=== PATIENT | female | born 1940 | race Caucasian/White ===

== ENCOUNTER → 2017-05-21 14:42 | Outpatient (CLI) | payer MEDICARE, OTHER, SELFPAY ==
[2017-05-21 16:07] LABS: Albumin, Serum 3.2 g/dL (3.2-5.0); BUN 30 mg/dL (7-18); BUN/Creat Ratio 20.7 RATIO (10-20); Calcium,Total 8.3 mg/dL (8.5-10.1); Chloride 103 mmol/L (98-107); Creatinine, Serum 1.45 mg/dL (0.55-1.02); EST Glomerular Filtration Rate 37 mL/min (>60); Est Glom Filt Rate - Afr Amer 45 mL/min (>60); Glucose 82 mg/dL (74-106); Phosphorus 3.2 mg/dL (2.5-4.9); Potassium 3.6 mmol/L (3.5-5.1); Sodium Level 143 mmol/L (136-145)
== END ==
PROVIDERS: Family Provider Family Medicine Geriatric Medicine; PCP Family Medicine Geriatric Medicine; Visit Provider Internal Medicine Nephrology
DX: N18.3 Chronic kidney disease, stage 3 (moderate) (principal)
CPT/HCPCS: 36415; 80069

== ENCOUNTER → 2017-06-05 15:08 | Outpatient (CLI) | payer MEDICARE, OTHER, SELFPAY ==
[2017-06-05 15:57] LABS: Absolute Lymphocyte Count 1.98 X10^3/ul (0.83-4.51); Absolute Neutrophil Count 6.7 X10^3/uL (2.0-7.7); Basophil# 0.04 X10^3/uL; Basophil% 0.4 % (0-1); Eosinophil# 0.22 X10^3/uL; Eosinophils% 2.2 % (0-5); Hematocrit 40.1 % (37-47); Hemoglobin 12.6 g/dl (12.0-15.0); Lymphocyte # 1.98 X10^3/ul (4.0); Lymphocyte % 19.9 % (19-41); Mean Corp Hgb Conc 31.4 g/gl (32-36); Mean Corpuscular Hgb 28.6 pg (27.0-32.0); Mean Corpuscular Volume 91.1 fL (81-99); Mean Platelet Vol. 11.5 fl (6.2-12.0); Monocyte# 0.96 X10^3/uL; Monocyte% 9.6 % (0-10); Neutrophil # 6.73 X10^3/uL (2.7-7.7); Neutrophil % 67.7 % (47-70); Platelet Count 243 K/mm3 (150-450); RBC Distribution Width CV 14.3 % (11.6-14.6); RBC Distribution Width SD 46.9 fl (35.1-43.9)
[2017-06-05 15:59] LABS: POSITIVE COUNT NO; POSITIVE DIFFERENTIAL NO; POSITIVE MORPHOLOGY NO
[2017-06-05 16:19] LABS: Vitamin D,25 Hydroxy 17.2 ng/mL (29.95-100.01)
[2017-06-05 16:24] LABS: ALB/GLOB Ratio 0.9 RATIO (0.9-2.4); AST(SGOT) 35 U/L (15-37); Alanine Aminotransfer ALT/SGPT 57 U/L (13-56); Albumin, Serum 3.2 g/dL (3.2-5.0); Alkaline Phosphatase 90 U/L (45-117); Anion Gap 8 (5-15); BUN 43 mg/dL (7-18); BUN/Creat Ratio 17.8 RATIO (10-20); Calcium,Total 8.6 mg/dL (8.5-10.1); Chloride 102 mmol/L (98-107); Creatinine, Serum 2.41 mg/dL (0.55-1.02); EST Glomerular Filtration Rate 21 mL/min (>60); Est Glom Filt Rate - Afr Amer 25 mL/min (>60); Globulin 3.6 g/dL (2.2-4.2); Glucose 125 mg/dL (74-106); Potassium 3.4 mmol/L (3.5-5.1); Protein, Total 6.8 g/dL (6.4-8.2); Sodium Level 141 mmol/L (136-145); Thyroid Stim Hormone (TSH) 1.74 uIU/mL (0.358-3.74)
== END ==
PROVIDERS: Family Provider Family Medicine Geriatric Medicine; PCP Family Medicine Geriatric Medicine; Visit Provider Family Medicine Geriatric Medicine
DX: I10 Essential (primary) hypertension (principal); E11.9 Type 2 diabetes mellitus without complications; E55.9 Vitamin D deficiency, unspecified
CPT/HCPCS: 36415; 80053; 82306; 84443; 85025

== ENCOUNTER → 2017-06-11 14:45 | Outpatient (CLI) | payer MEDICARE, OTHER, SELFPAY ==
--- NOTE | 2017-06-11 13:08 | TISS_PTH ---
PATIENT: TONJA SÁNCHEZ LOC: [facility] U#:[id number] AGE/SX: 85/F ROOM: RE06/11/[address]: Dr. Alexy Douglas MD : 1940 BED: DIS: SPEC #: [id number] RECD: 06/11/17 15:40 STATUS: RICHARD KAMRON #: [id number] HAMLET: 06/11/17 13:[address]: Alexy Douglas Chi DEPT: SURGICAL PATHOLOGY RECD BY: Lorna Young Tissues: A - Skin of neck, NOS B - Skin of neck, NOS Procedures: Surgery Specimen Level IV HEADER OPERATION: Not noted PRE-OP DIAGNOSIS: L98.9, 709.9 TISSUE SUBMITTED: A. Neck, left upper, B. Neck, left lower MICROSCOPIC DIAGNOSIS A. Skin lesion, left upper neck, shave biopsy: Seborrheic keratosis. Solar elastosis. B. Skin lesion, left lower neck, shave biopsy: Basal cell carcinoma, incompletely excised. AM:lonnie 06/13/17 MICROSCOPIC DESCRIPTION Slides are reviewed. GROSS DESCRIPTION A - Received is one container labeled with the patient's name and not further designated. The specimen consists of a light gleason fragment of shaved skin measuring 0.8 x 0.7 x 0.1 cm. The specimen is inked, bisected and totally submitted in one cassette. B - Received is one container labeled with the patient's name and not further designated. The specimen consists of a light gleason fragment of shaved skin measuring 1 x 0.6 x <0.1 cm. The specimen is inked, bisected and totally submitted in one cassette. / AM:lonnie 06/12/17 TC:0 CPT: 66458 x2
== END ==
PROVIDERS: Family Provider Family Medicine Geriatric Medicine; PCP Family Medicine Geriatric Medicine; Visit Provider Family Medicine Geriatric Medicine
DX: L98.9 Disorder of the skin and subcutaneous tissue, unspecified (principal)
CPT/HCPCS: 88305

== ENCOUNTER → 2017-06-25 12:09 | Outpatient (CLI) | payer MEDICARE, OTHER, SELFPAY ==
[2017-06-25 13:12] LABS: Albumin, Serum 3.2 g/dL (3.2-5.0); BUN 29 mg/dL (7-18); BUN/Creat Ratio 14.4 RATIO (10-20); Calcium,Total 8.6 mg/dL (8.5-10.1); Chloride 103 mmol/L (98-107); Creatinine, Serum 2.02 mg/dL (0.55-1.02); EST Glomerular Filtration Rate 25 mL/min (>60); Est Glom Filt Rate - Afr Amer 31 mL/min (>60); Glucose 175 mg/dL (74-106); Phosphorus 2.9 mg/dL (2.5-4.9); Potassium 3.7 mmol/L (3.5-5.1); Sodium Level 143 mmol/L (136-145)
== END ==
PROVIDERS: Family Provider Family Medicine Geriatric Medicine; PCP Family Medicine Geriatric Medicine; Visit Provider Family Medicine Geriatric Medicine
DX: N17.8 Other acute kidney failure (principal)
CPT/HCPCS: 36415; 80069

== ENCOUNTER → 2017-08-13 16:14 | Outpatient (CLI) | payer MEDICARE, OTHER, SELFPAY ==
[2017-08-13 17:49] LABS: Albumin, Serum 3.1 g/dL (3.2-5.0); BUN 24 mg/dL (7-18); Calcium,Total 8.2 mg/dL (8.5-10.1); Chloride 105 mmol/L (98-107); Creatinine, Serum 1.72 mg/dL (0.55-1.02); EST Glomerular Filtration Rate 30 mL/min (>60); Est Glom Filt Rate - Afr Amer 37 mL/min (>60); Glucose 133 mg/dL (74-106); Phosphorus 2.8 mg/dL (2.5-4.9); Potassium 3.4 mmol/L (3.5-5.1); Sodium Level 142 mmol/L (136-145)
== END ==
PROVIDERS: Family Provider Family Medicine Geriatric Medicine; PCP Family Medicine Geriatric Medicine; Visit Provider Internal Medicine Nephrology
DX: E78.5 Hyperlipidemia, unspecified (principal); I10 Essential (primary) hypertension; I48.0 Paroxysmal atrial fibrillation; R06.02 Shortness of breath; R60.9 Edema, unspecified
CPT/HCPCS: 36415; 80069

== ENCOUNTER → 2017-09-12 09:03 | Outpatient (CLI) | payer MEDICARE, OTHER, SELFPAY ==
[2017-09-12 18:04] LABS: ALB/GLOB Ratio 0.9 RATIO (0.9-2.4); AST(SGOT) 43 U/L (15-37); Absolute Neutrophil Count 5.4 X10^3/uL (2.0-7.7); Alanine Aminotransfer ALT/SGPT 65 U/L (13-56); Albumin, Serum 3.2 g/dL (3.2-5.0); Alkaline Phosphatase 75 U/L (45-117); Anion Gap 10 (5-15); BUN 30 mg/dL (7-18); Basophil# 0.02 X10^3/uL; Basophil% 0.2 % (0-1); Calcium,Total 8.9 mg/dL (8.5-10.1); Chloride 103 mmol/L (98-107); Creatinine, Serum 1.87 mg/dL (0.55-1.02); EST Glomerular Filtration Rate 28 mL/min (>60); Eosinophil# 0.23 X10^3/uL; Eosinophils% 2.8 % (0-5); Est Glom Filt Rate - Afr Amer 33 mL/min (>60); Globulin 3.7 g/dL (2.2-4.2); Glucose 114 mg/dL (74-106); Hematocrit 37.2 % (37-47); Hemoglobin 11.7 g/dl (12.0-15.0); Lymphocyte % 24.2 % (19-41); Mean Corp Hgb Conc 31.5 g/gl (32-36); Mean Corpuscular Hgb 29.5 pg (27.0-32.0); Mean Corpuscular Volume 93.9 fL (81-99); Mean Platelet Vol. 11.6 fl (6.2-12.0); Monocyte# 0.59 X10^3/uL; Monocyte% 7.2 % (0-10); Neutrophil % 65.5 % (47-70); POSITIVE COUNT NO; POSITIVE DIFFERENTIAL NO; POSITIVE MORPHOLOGY NO; Platelet Count 256 K/mm3 (150-450); Potassium 3.4 mmol/L (3.5-5.1); Protein, Total 6.9 g/dL (6.4-8.2); RBC Distribution Width CV 13.6 % (11.6-14.6); RBC Distribution Width SD 46.3 fl (35.1-43.9); Red Blood Count 3.96 M/mm3 (4.2-5.4); Sodium Level 142 mmol/L (136-145); White Blood Count 8.3 K/mm3 (4.4-11.0)
[2017-09-13 08:43] LABS: Vitamin D,25 Hydroxy 46.2 ng/mL (29.95-100.01)
== END ==
PROVIDERS: Family Provider Family Medicine Geriatric Medicine; PCP Family Medicine Geriatric Medicine; Visit Provider Family Medicine Geriatric Medicine
DX: E11.9 Type 2 diabetes mellitus without complications (principal); E55.9 Vitamin D deficiency, unspecified; I10 Essential (primary) hypertension
CPT/HCPCS: 36415; 80053; 82306; 84443; 85025

== ENCOUNTER → 2017-12-10 15:35 | Outpatient (CLI) | payer MEDICARE, OTHER, SELFPAY ==
--- NOTE | 2017-12-10 15:44 | RAD_ITS ---
STUDY: X-RAY CHEST REASON FOR EXAM: Female, 77 years old. One week history of shortness of breath. TECHNIQUE: PA and lateral views of the chest. COMPARISON: Comparison is made with prior study dated November 15, 2016. FINDINGS: Mild increased linear markings at the lung bases slightly more prominent on the left side suggestive of a bibasilar scarring. Hyperinflation. There is no demonstrated pleural abnormality. Normal size heart. Normal mediastinum and binh. Normal visualized pulmonary arteries. There is atherosclerotic tortuosity of the aortic arch and descending thoracic aorta. There are diffuse degenerative changes of the visualized thoracic spine. Normal visualized ribs, clavicles, and shoulders. There is no demonstrated abnormality of the visualized soft tissue structures of the upper abdomen. RAD/Chest PA and Lateral IMPRESSION: Hyperinflation. Mild degree of increased markings at the lung bases slightly worse on the left side suggestive of scarring. Electronically Signed: Huey Gomez MD at 16:01 EDT Tel [phone], Service support ,
[2017-12-10 16:45] LABS: BNP,B-Type NATRIURETIC PEPTIDE 208.6 pg/mL (0-100)
[2017-12-10 16:54] LABS: ALB/GLOB Ratio 0.8 RATIO (0.9-2.4); AST(SGOT) 31 U/L (15-37); Alanine Aminotransfer ALT/SGPT 53 U/L (13-56); Albumin, Serum 3.2 g/dL (3.2-5.0); Alkaline Phosphatase 91 U/L (45-117); Anion Gap 8 (5-15); BUN 22 mg/dL (7-18); BUN/Creat Ratio 14.4 RATIO (10-20); CPK Total, Creatine Kinase 59 U/L (26-192); Calcium,Total 8.9 mg/dL (8.5-10.1); Chloride 103 mmol/L (98-107); Creatinine, Serum 1.53 mg/dL (0.55-1.02); EST Glomerular Filtration Rate 35 mL/min (>60); Est Glom Filt Rate - Afr Amer 42 mL/min (>60); Globulin 3.8 g/dL (2.2-4.2); Glucose 101 mg/dL (74-106); Potassium 4.5 mmol/L (3.5-5.1); Sodium Level 142 mmol/L (136-145); Thyroid Stim Hormone (TSH) 3.42 uIU/mL (0.358-3.74)
[2017-12-10 17:05] LABS: Absolute Lymphocyte Count 1.57 X10^3/ul (0.83-4.51); Absolute Neutrophil Count 6.7 X10^3/uL (2.0-7.7); Basophil# 0.04 X10^3/uL; Basophil% 0.4 % (0-1); Eosinophil# 0.25 X10^3/uL; Eosinophils% 2.7 % (0-5); Hematocrit 41.6 % (37-47); Hemoglobin 12.9 g/dl (12.0-15.0); Lymphocyte # 1.57 X10^3/ul (4.0); Lymphocyte % 16.8 % (19-41); Mean Corpuscular Hgb 28.4 pg (27.0-32.0); Mean Corpuscular Volume 91.6 fL (81-99); Mean Platelet Vol. 11.1 fl (6.2-12.0); Monocyte# 0.76 X10^3/uL; Monocyte% 8.1 % (0-10); Neutrophil # 6.71 X10^3/uL (2.7-7.7); Neutrophil % 71.6 % (47-70); POSITIVE COUNT NO; POSITIVE DIFFERENTIAL NO; POSITIVE MORPHOLOGY NO; Platelet Count 281 K/mm3 (150-450); RBC Distribution Width CV 14.3 % (11.6-14.6); RBC Distribution Width SD 47.7 fl (35.1-43.9); Red Blood Count 4.54 M/mm3 (4.2-5.4); White Blood Count 9.4 K/mm3 (4.4-11.0)
[2017-12-10 17:58] LABS: D-Dimer Quantitative (DVT/PE) 0.56 FEU/ug/m (0.27-0.49)
[2017-12-13 08:13] LABS: Myoglobin, Serum 36 ng/mL (25-58)
== END ==
PROVIDERS: Family Provider Family Medicine Geriatric Medicine; PCP Family Medicine Geriatric Medicine; Referring Provider Family Medicine Geriatric Medicine; Visit Provider Family Medicine Geriatric Medicine
DX: R06.02 Shortness of breath (principal); I10 Essential (primary) hypertension
CPT/HCPCS: 36415; 71046; 80053; 82550; 83874; 83880; 84443; 84484; 85025; 85379

== ENCOUNTER → 2017-12-17 13:03 | Outpatient (CLI) | payer MEDICARE, OTHER, SELFPAY ==
--- NOTE | 2017-12-17 15:14 | PFTCOMP ---
COMPLETE PULMONARY FUNCTION TEST INTERPRETATION Brief HPI: Patient is a 77 year old female, currently under the care of Dr. Greenwood, who presents to [facility] for complete pulmonary function tests secondary to diagnosis of COPD. Respiratory therapist reports good effort and reproducible results. Interpretation: Forced expiration spirometry shows a mild large airways obstructive ventilatory defect with an FEV1 of 73% predicted. There is no significant bronchodilator response by ATS criteria. Spirograms are of good quality and plateau slowly, indicating slowly emptying areas of the lungs. The respiratory flow volume loop shows decreased expiratory flow rates at all lung volumes consistent with airway obstruction. Lung volumes by body plethysmography show an elevated total lung capacity at 6.56 L, 114% predicted. FRC and RV are elevated out of proportion. Lung volume measurements are consistent with hyperinflation and air-trapping. Diffusion capacity by carbon monoxide is decreased at 48% predicted. The airway resistance is elevated. Compared to previous pulmonary function tests from 12/25/2016, there has been a significant improvement in DLCO, but worsening air trapping. Impression: Irreversible mild large airways obstructive ventilatory defect resulting in air trapping with hyperinflation and a reduction of DLCO out of proportion indicating a probable pulmonary vascular disorder. There has been changes compared to previous study.
== END ==
PROVIDERS: Family Provider Family Medicine Geriatric Medicine; PCP Family Medicine Geriatric Medicine; Referring Provider Nurse Practitioner Acute Care; Visit Provider Nurse Practitioner Acute Care
DX: J44.9 Chronic obstructive pulmonary disease, unspecified (principal)
CPT/HCPCS: 94060; 94726; 94729

== ENCOUNTER → 2017-12-17 13:49 | Outpatient (CLI) | payer MEDICARE, OTHER, SELFPAY ==
[2017-12-17 14:59] LABS: Albumin, Serum 3.2 g/dL (3.2-5.0); BUN 24 mg/dL (7-18); BUN/Creat Ratio 16.7 RATIO (10-20); Calcium,Total 8.6 mg/dL (8.5-10.1); Chloride 107 mmol/L (98-107); Creatinine, Serum 1.44 mg/dL (0.55-1.02); EST Glomerular Filtration Rate 37 mL/min (>60); Est Glom Filt Rate - Afr Amer 45 mL/min (>60); Glucose 159 mg/dL (74-106); Potassium 4.3 mmol/L (3.5-5.1); Sodium Level 144 mmol/L (136-145)
== END ==
PROVIDERS: Family Provider Family Medicine Geriatric Medicine; PCP Family Medicine Geriatric Medicine; Referring Provider Internal Medicine Nephrology; Visit Provider Internal Medicine Nephrology
DX: N17.8 Other acute kidney failure (principal)
CPT/HCPCS: 36415; 80069; 94060; 94726; 94729

== ENCOUNTER → 2017-12-18 11:51 | Outpatient (CLI) | payer MEDICARE, OTHER, SELFPAY ==
[2017-12-18 12:17] VITALS: PULSE 57; PULSE 63; PULSE 68; PULSE 69; PULSE 70; PULSE 76; O2SAT 90; O2SAT 92; O2SAT 93
--- NOTE | 2017-12-18 15:18 | PCM.PSN.6M ---
PSN 6 Minute Walk Test - 6 Minute Walk Test 6 Minute Walk Test: 6 Minute Walk Test PSN:6-Minute Walk Test Start: 12/18/17 12:17 Freq: Status: Active Protocol: RESP.6MINW Document 12/18/17 12:17 SMB (Rec: 12/18/17 12:21 SMB [id number]) 6 Minute Walk Test Date Performed 12/18/17 Time Performed 12:05 Height 5 ft 9 in Weight: 113.398 kg Weight in Pounds 250.[address]: Bessy Galan Assistive device used: None Pre-test Oxygen Delivery Method Room Air Pulse Ox (%) 93 Pulse Rate (60-100 beats/min) 57 L 1st minute Oxygen Delivery Method Room Air Pulse Ox (%) 92 Pulse Rate (60-100 beats/min) 70 2nd minute Oxygen Delivery Method Room Air Pulse Ox (%) 90 Pulse Rate (60-100 beats/min) 63 3rd minute Oxygen Delivery Method Room Air Pulse Ox (%) 92 Pulse Rate (60-100 beats/min) 70 4th minute Oxygen Delivery Method Room Air Pulse Ox (%) 92 Pulse Rate (60-100 beats/min) 69 5th minute Oxygen Delivery Method Room Air Pulse Ox (%) 90 Pulse Rate (60-100 beats/min) 68 6th minute Oxygen Delivery Method Room Air Pulse Ox (%) 92 Pulse Rate (60-100 beats/min) 76 Post-test Oxygen Delivery Method Room Air Pulse Ox (%) 93 Pulse Rate (60-100 beats/min) 63 Dyspnea Maci Scale (0-10) 2 Exertion Maci Scale (6-20) 13 Full Laps Walked 17 Partial Lap, Number of Tiles Walked 9 Total Distance Walked (ft) 1012 - Interpretation Interpretation: The patient was noted to have a decreased baseline saturation of 93% on room air. The patient then ambulated 1012 feet over the course of 6 minutes on room air with no assistive devices or breaks. The patient did desaturate as low as 90%, but no tachycardia was noted during testing. These findings are consistent with a respiratory limitation exercise tolerance. - Recommendations Recommendations: No supplemental oxygen is indicated at this time. However, patient will need to be followed closely given decreased saturation at baseline.
== END ==
PROVIDERS: Family Provider Family Medicine Geriatric Medicine; PCP Family Medicine Geriatric Medicine; Referring Provider Nurse Practitioner Acute Care; Visit Provider Nurse Practitioner Acute Care
DX: J44.9 Chronic obstructive pulmonary disease, unspecified (principal)
CPT/HCPCS: 36415; 80048; 94618

== ENCOUNTER → 2017-12-18 13:04 | Outpatient (CLI) | payer MEDICARE, OTHER, SELFPAY ==
[2017-12-18 17:18] LABS: Anion Gap 9 (5-15); BUN 22 mg/dL (7-18); BUN/Creat Ratio 14.8 RATIO (10-20); Calcium,Total 9.1 mg/dL (8.5-10.1); Chloride 102 mmol/L (98-107); Creatinine, Serum 1.49 mg/dL (0.55-1.02); EST Glomerular Filtration Rate 36 mL/min (>60); Est Glom Filt Rate - Afr Amer 43 mL/min (>60); Glucose 88 mg/dL (74-106); Potassium 4.2 mmol/L (3.5-5.1); Sodium Level 141 mmol/L (136-145)
== END ==
PROVIDERS: Family Provider Family Medicine Geriatric Medicine; PCP Family Medicine Geriatric Medicine; Visit Provider Family Medicine Geriatric Medicine
DX: N18.3 Chronic kidney disease, stage 3 (moderate) (principal)
CPT/HCPCS: 36415; 80048

== ENCOUNTER → 2018-02-18 11:24 | Outpatient (CLI) | payer MEDICARE, OTHER, SELFPAY ==
[2018-02-04 14:07] VITALS: BMI 38.9
[2018-02-18 12:35] LABS: Albumin, Serum 3.2 g/dL (3.2-5.0); BUN 23 mg/dL (7-18); BUN/Creat Ratio 15.8 RATIO (10-20); Calcium,Total 8.9 mg/dL (8.5-10.1); Chloride 108 mmol/L (98-107); Creatinine, Serum 1.46 mg/dL (0.55-1.02); EST Glomerular Filtration Rate 37 mL/min (>60); Est Glom Filt Rate - Afr Amer 44 mL/min (>60); Glucose 164 mg/dL (74-106); Phosphorus 2.9 mg/dL (2.5-4.9); Potassium 4.2 mmol/L (3.5-5.1); Sodium Level 144 mmol/L (136-145)
== END ==
PROVIDERS: Family Provider Family Medicine Geriatric Medicine; PCP Family Medicine Geriatric Medicine; Visit Provider Internal Medicine Nephrology
DX: N18.3 Chronic kidney disease, stage 3 (moderate) (principal)
CPT/HCPCS: 36415; 80069

== ENCOUNTER → 2018-02-20 13:35 | Outpatient (CLI) | payer MEDICARE, OTHER, SELFPAY ==
[2018-02-04 14:07] VITALS: BMI 38.9
--- NOTE | 2018-02-20 13:36 | ECHOCS_ITS ---
Reason For Study: SOB Procedure This was a 2D Doppler, Color Flow transthoracic echocardiogram. Contrast injection was performed. The study was technically difficult. Exam performed in department. Left Ventricle Normal LV size. Left ventricular systolic function is normal. The estimated ejection fraction is 60 %. Stage 3 diastolic dysfunction. No regional wall motion abnormalities noted. Right Ventricle Normal RV size. Normal systolic function. Atria The left atrium is moderately enlarged. The right atrium is mildly enlarged. Mitral Valve There is mild mitral annular calcification. Mild (1+) eccentric mitral valve insufficiency. Tricuspid Valve Normal tricuspid valve. Mild to moderate (1-2+) tricuspid valve insufficiency. Pulmonary artery systolic pressure is 47 mmHg. Aortic Valve Trisinus/trileaflet aortic valve. Pulmonic Valve The pulmonic valve is not well visualized. Great Vessels Normal aortic root. The pulmonary artery is normal size. Normal inferior vena cava. Pericardium/Pleural No pericardial effusion. Medication 22 gauge I.V. with prn adaptor inserted into right arm. Diluted definity 2ml given slow IV push to enhance endocardial definition. MMode/2D Measurements & Calculations LAV(MOD-bp): 108.4 ml LA A4 area: 29.3 cm2 RA A4 area: 24.1 cm2 LAV(MOD-bp) Indexed: 47.7 ml/m2 LAV(MOD-sp2): 103.7 ml LAV(MOD-sp4): 113.9 ml Time Measurements MV dec time: 0.22 sec Doppler Measurements & Calculations MV E max graeme: 89.3 cm/sec Lat Peak E' Graeme: 2.9 cm/sec Med Peak E' Graeme: 2.1 cm/sec MV A max graeme: 63.4 cm/sec E/E' lat: 30.8 E/E' med: 43.3 MV E/A: 1.4 MV V2 max: 126.2 cm/sec MV P1/2t max graeme: 126.2 cm/sec Ao V2 max: 145.6 cm/sec MV max P.4 mmHg MV P1/2t: 78.3 msec Ao max P.5 mmHg MV V2 mean: 57.4 cm/sec MV dec slope: 471.9 cm/sec2 Ao V2 mean: 97.2 cm/sec MV mean P.6 mmHg Ao mean P.3 mmHg MV V2 VTI: 45.4 cm MVA(P1/2t): 2.8 cm2 Ao V2 VTI: 32.8 cm LV V1 max: 111.7 cm/sec PA V2 max: 95.3 cm/sec TR max graeme: 328.0 cm/sec LV V1 max P.0 mmHg TR max P.0 mmHg LV V1 mean P.5 mmHg LV V1 mean: 73.7 cm/sec LV V1 VTI: 26.6 cm Interpretation Summary Normal LV size. Left ventricular systolic function is normal. The estimated ejection fraction is 60 %. Stage 3 diastolic dysfunction. The left atrium is moderately enlarged. Mild to moderate (1-2+) tricuspid valve insufficiency. Pulmonary artery systolic pressure is 47 mmHg. Contrast injection was performed. Ordering Physician: Roosevelt Tesfaye Referring Physician: Roosevelt Tesfaye Performed By: Colton Artis RCS
== END ==
PROVIDERS: Family Provider Family Medicine Geriatric Medicine; PCP Family Medicine Geriatric Medicine; Referring Provider Internal Medicine Cardiovascular Disease; Visit Provider Internal Medicine Cardiovascular Disease
DX: R06.02 Shortness of breath (principal)
CPT/HCPCS: 93306; Q9957; A4216; C8929

== ENCOUNTER → 2018-04-25 15:39 | Outpatient (CLI) | payer MEDICARE, OTHER, SELFPAY ==
[2018-02-04 14:07] VITALS: BMI 38.9
[2018-04-25 16:57] LABS: Albumin, Serum 3.4 g/dL (3.2-5.0); BUN 22 mg/dL (7-18); BUN/Creat Ratio 16.7 RATIO (10-20); Calcium,Total 8.5 mg/dL (8.5-10.1); Chloride 105 mmol/L (98-107); Creatinine, Serum 1.32 mg/dL (0.55-1.02); EST Glomerular Filtration Rate 41 mL/min (>60); Est Glom Filt Rate - Afr Amer 50 mL/min (>60); Glucose 120 mg/dL (74-106); Phosphorus 3.2 mg/dL (2.5-4.9); Potassium 4.1 mmol/L (3.5-5.1); Sodium Level 143 mmol/L (136-145)
== END ==
PROVIDERS: Family Provider Family Medicine Geriatric Medicine; PCP Family Medicine Geriatric Medicine; Referring Provider Internal Medicine Nephrology; Visit Provider Internal Medicine Nephrology
DX: N18.3 Chronic kidney disease, stage 3 (moderate) (principal)
CPT/HCPCS: 36415; 80069

== ENCOUNTER → 2018-08-13 12:02 | Outpatient (CLI) | payer MEDICARE, OTHER, SELFPAY ==
[2018-02-04 14:07] VITALS: BMI 38.9
[2018-08-13 17:47] LABS: Absolute Lymphocyte Count 1.56 X10^3/ul (0.83-4.51); Absolute Neutrophil Count 6.4 X10^3/uL (2.0-7.7); Basophil# 0.02 X10^3/uL; Basophil% 0.2 % (0-1); Eosinophil# 0.31 X10^3/uL; Eosinophils% 3.4 % (0-5); Hematocrit 38.5 % (37-47); Hemoglobin 11.9 g/dl (12.0-15.0); Lymphocyte # 1.56 X10^3/ul (4.0); Lymphocyte % 17.4 % (19-41); Mean Corp Hgb Conc 30.9 g/gl (32-36); Mean Corpuscular Hgb 27.9 pg (27.0-32.0); Mean Corpuscular Volume 90.2 fL (81-99); Mean Platelet Vol. 12.1 fl (6.2-12.0); Monocyte# 0.66 X10^3/uL; Monocyte% 7.3 % (0-10); Neutrophil % 71.3 % (47-70); Platelet Count 280 K/mm3 (150-450); RBC Distribution Width CV 14.2 % (11.6-14.6); RBC Distribution Width SD 45.1 fl (35.1-43.9); Red Blood Count 4.27 M/mm3 (4.2-5.4)
[2018-08-13 17:56] LABS: Vitamin D,25 Hydroxy 66.6 ng/mL (29.95-100.01)
[2018-08-13 17:58] LABS: POSITIVE COUNT NO; POSITIVE DIFFERENTIAL NO; POSITIVE MORPHOLOGY NO
[2018-08-13 18:11] LABS: ALB/GLOB Ratio 0.8 RATIO (0.9-2.4); AST(SGOT) 18 U/L (15-37); Alanine Aminotransfer ALT/SGPT 27 U/L (13-56); Alkaline Phosphatase 103 U/L (45-117); Anion Gap 8 (5-15); BUN 24 mg/dL (7-18); BUN/Creat Ratio 16.1 RATIO (10-20); Calcium,Total 8.7 mg/dL (8.5-10.1); Chloride 105 mmol/L (98-107); Creatinine, Serum 1.49 mg/dL (0.55-1.02); EST Glomerular Filtration Rate 36 mL/min (>60); Est Glom Filt Rate - Afr Amer 43 mL/min (>60); Globulin 3.9 g/dL (2.2-4.2); Glucose 252 mg/dL (74-106); Potassium 4.1 mmol/L (3.5-5.1); Protein, Total 6.9 g/dL (6.4-8.2); Sodium Level 141 mmol/L (136-145); Thyroid Stim Hormone (TSH) 0.96 uIU/mL (0.358-3.74)
== END ==
PROVIDERS: Family Provider Family Medicine Geriatric Medicine; PCP Family Medicine Geriatric Medicine; Visit Provider Family Medicine Geriatric Medicine
DX: E11.9 Type 2 diabetes mellitus without complications (principal); E55.9 Vitamin D deficiency, unspecified; I10 Essential (primary) hypertension
CPT/HCPCS: 36415; 80053; 82306; 84443; 85025

== ENCOUNTER → 2018-11-12 10:38 | Outpatient (CLI) | payer MEDICARE, OTHER, SELFPAY ==
[2018-08-20 14:34] VITALS: BMI 38.9
[2018-11-12 15:40] LABS: Absolute Lymphocyte Count 1.71 X10^3/uL (0.83-4.51); Absolute Neutrophil Count 6.8 X10^3/uL (2.0-7.7); Basophil# 0.07 X10^3/uL; Basophil% 0.7 % (0-1); Eosinophil# 0.27 X10^3/uL; Eosinophils% 2.8 % (0-5); Hematocrit 37.2 % (37-47); Hemoglobin 11.2 g/dL (12.0-15.0); Lymphocyte # 1.71 X10^3/ul (4.0); Mean Corp Hgb Conc 30.1 g/dL (32-36); Mean Corpuscular Hgb 26.5 pg (27.0-32.0); Mean Corpuscular Volume 87.9 fL (81-99); Mean Platelet Vol. 11.6 fl (6.2-12.0); Monocyte# 0.67 X10^3/uL; NRBC Flagged by Analyzer 0 % (0-5); Neutrophil # 6.75 X10^3/uL (2.7-7.7); Platelet Count 301 K/mm3 (150-450); RBC Distribution Width CV 14.3 % (11.6-14.6); RBC Distribution Width SD 45.7 fl (35.1-43.9); Red Blood Count 4.23 M/mm3 (4.2-5.4); White Blood Count 9.5 K/mm3 (4.4-11.0)
[2018-11-12 15:42] LABS: Protein, Urine (Random) 20.8 mg/dL (<11.9); Protein:Creat Ratio 224 mg/g CRE (0-200)
[2018-11-12 16:07] LABS: Vitamin D,25 Hydroxy 33.8 ng/mL (29.95-100.01)
[2018-11-12 16:10] LABS: ALB/GLOB Ratio 0.9 RATIO (0.9-2.4); AST(SGOT) 23 U/L (15-37); Alanine Aminotransfer ALT/SGPT 28 U/L (13-56); Albumin, Serum 3.2 g/dL (3.2-5.0); Alkaline Phosphatase 111 U/L (45-117); Anion Gap 6 (5-15); BUN 21 mg/dL (7-18); BUN/Creat Ratio 16.4 RATIO (10-20); Calcium,Total 8.7 mg/dL (8.5-10.1); Chloride 107 mmol/L (98-107); Creatinine, Serum 1.28 mg/dL (0.55-1.02); EST Glomerular Filtration Rate 43 mL/min (>60); Est Glom Filt Rate - Afr Amer 52 mL/min (>60); Globulin 3.6 g/dL (2.2-4.2); Glucose 213 mg/dL (74-106); Potassium 3.7 mmol/L (3.5-5.1); Protein, Total 6.8 g/dL (6.4-8.2); Sodium Level 141 mmol/L (136-145); Thyroid Stim Hormone (TSH) 0.61 uIU/mL (0.358-3.74)
== END ==
PROVIDERS: Internal Medicine Nephrology; Family Provider Family Medicine Geriatric Medicine; PCP Family Medicine Geriatric Medicine; Visit Provider Family Medicine Geriatric Medicine
DX: I12.0 Hypertensive chronic kidney disease with stage 5 chronic kidney disease or end stage renal disease (principal); E11.22 Type 2 diabetes mellitus with diabetic chronic kidney disease; N18.9 Chronic kidney disease, unspecified; E55.9 Vitamin D deficiency, unspecified
CPT/HCPCS: 36415; 80053; 82306; 82570; 84156; 84443; 85025

== ENCOUNTER → 2018-11-24 16:35 | Outpatient (CLI) | payer MEDICARE, OTHER, SELFPAY ==
[2018-08-20 14:34] VITALS: BMI 38.9
[2018-11-24 17:36] LABS: Anion Gap 7 (5-15); BUN 21 mg/dL (7-18); BUN/Creat Ratio 14.2 RATIO (10-20); Chloride 106 mmol/L (98-107); Creatinine, Serum 1.48 mg/dL (0.55-1.02); EST Glomerular Filtration Rate 36 mL/min (>60); Est Glom Filt Rate - Afr Amer 44 mL/min (>60); Glucose 139 mg/dL (74-106); Potassium 4.2 mmol/L (3.5-5.1); Sodium Level 143 mmol/L (136-145)
== END ==
PROVIDERS: Family Provider Family Medicine Geriatric Medicine; PCP Family Medicine Geriatric Medicine; Visit Provider Family Medicine Geriatric Medicine
DX: E87.6 Hypokalemia (principal)
CPT/HCPCS: 36415; 80048

== ENCOUNTER → 2018-12-04 10:14 | Outpatient (CLI) | payer MEDICARE, OTHER, SELFPAY ==
[2018-08-20 14:34] VITALS: BMI 38.9
[2018-12-04 17:35] LABS: Absolute Lymphocyte Count 1.71 X10^3/uL (0.83-4.51); Absolute Neutrophil Count 7.8 X10^3/uL (2.0-7.7); Basophil# 0.05 X10^3/uL; Basophil% 0.5 % (0-1); Eosinophil# 0.33 X10^3/uL; Eosinophils% 3.1 % (0-5); Hematocrit 38.3 % (37-47); Hemoglobin 11.5 g/dL (12.0-15.0); Lymphocyte # 1.71 X10^3/ul (4.0); Lymphocyte % 16.1 % (19-41); Mean Corpuscular Hgb 26.2 pg (27.0-32.0); Mean Corpuscular Volume 87.2 fL (81-99); Mean Platelet Vol. 11.8 fl (6.2-12.0); Monocyte# 0.71 X10^3/uL; Monocyte% 6.7 % (0-10); NRBC Flagged by Analyzer 0 % (0-5); Neutrophil # 7.76 X10^3/uL (2.7-7.7); Neutrophil % 73.1 % (47-70); Platelet Count 302 K/mm3 (150-450); RBC Distribution Width CV 14.7 % (11.6-14.6); RBC Distribution Width SD 46.8 fl (35.1-43.9); Red Blood Count 4.39 M/mm3 (4.2-5.4); White Blood Count 10.6 K/mm3 (4.4-11.0)
[2018-12-04 17:55] LABS: Vitamin D,25 Hydroxy 39.6 ng/mL (29.95-100.01)
[2018-12-04 18:00] LABS: ALB/GLOB Ratio 0.9 RATIO (0.9-2.4); AST(SGOT) 16 U/L (15-37); Alanine Aminotransfer ALT/SGPT 25 U/L (13-56); Albumin, Serum 3.1 g/dL (3.2-5.0); Alkaline Phosphatase 104 U/L (45-117); Anion Gap 8 (5-15); BUN 18 mg/dL (7-18); BUN/Creat Ratio 14.5 RATIO (10-20); Calcium,Total 8.6 mg/dL (8.5-10.1); Chloride 106 mmol/L (98-107); Creatinine, Serum 1.24 mg/dL (0.55-1.02); EST Glomerular Filtration Rate 44 mL/min (>60); Est Glom Filt Rate - Afr Amer 54 mL/min (>60); Globulin 3.6 g/dL (2.2-4.2); Glucose 199 mg/dL (74-106); Protein, Total 6.7 g/dL (6.4-8.2); Sodium Level 142 mmol/L (136-145); Thyroid Stim Hormone (TSH) 1.02 uIU/mL (0.358-3.74)
== END ==
PROVIDERS: Family Provider Family Medicine Geriatric Medicine; PCP Family Medicine Geriatric Medicine; Visit Provider Family Medicine Geriatric Medicine
DX: E11.9 Type 2 diabetes mellitus without complications (principal); E55.9 Vitamin D deficiency, unspecified; I10 Essential (primary) hypertension
CPT/HCPCS: 36415; 80053; 82306; 84443; 85025

== ENCOUNTER → 2019-02-06 11:46 | Outpatient (CLI) | payer MEDICARE, OTHER, SELFPAY ==
[2019-02-06 10:56] VITALS: BMI 38.9
--- NOTE | 2019-02-06 12:14 | RAD_ITS ---
STUDY: X-RAY CHEST REASON FOR EXAM: Female, 79 years old. Shortness of breath density TECHNIQUE: PA and lateral views of the chest. COMPARISON: December 10, 2017 FINDINGS: There are chronic appearing lung markings. There is linear density in the left lingula, stable since prior study. There is no demonstrated pleural abnormality. There is mild cardiac enlargement. Normal mediastinum and binh. Normal visualized pulmonary arteries. Normal visualized aortic arch and descending thoracic aorta. There are diffuse degenerative changes of the visualized thoracic spine. Normal visualized ribs, clavicles, and shoulders. There is no demonstrated abnormality of the visualized soft tissue structures of the upper abdomen. RAD/Chest PA and Lateral IMPRESSION: Stable chronic appearing lung markings, stable lingular atelectasis. Electronically Signed: Luisa Ty MD at 12:49 EST Tel , Service support ,
[2019-02-06 13:14] LABS: Anion Gap 6 (5-15); BUN 22 mg/dL (7-18); BUN/Creat Ratio 17.1 RATIO (10-20); Calcium,Total 9.1 mg/dL (8.5-10.1); Chloride 107 mmol/L (98-107); Creatinine, Serum 1.29 mg/dL (0.55-1.02); EST Glomerular Filtration Rate 42 mL/min (>60); Est Glom Filt Rate - Afr Amer 51 mL/min (>60); Glucose 200 mg/dL (74-106); Potassium 4.1 mmol/L (3.5-5.1); Sodium Level 142 mmol/L (136-145)
== END ==
PROVIDERS: Family Provider Family Medicine Geriatric Medicine; PCP Family Medicine Geriatric Medicine; Referring Provider Nurse Practitioner Acute Care; Visit Provider Nurse Practitioner Acute Care
DX: R06.00 Dyspnea, unspecified (principal)
CPT/HCPCS: 36415; 71046; 80048; 83880

== ENCOUNTER → 2019-02-10 08:42 | Outpatient (CLI) | payer MEDICARE, OTHER, SELFPAY ==
[2019-02-06 10:56] VITALS: BMI 38.9
== END ==
PROVIDERS: Family Provider Family Medicine Geriatric Medicine; PCP Family Medicine Geriatric Medicine; Referring Provider Physician Assistant Medical; Visit Provider Physician Assistant Medical
DX: I48.0 Paroxysmal atrial fibrillation (principal); R06.00 Dyspnea, unspecified
CPT/HCPCS: 93225; 93226

== ENCOUNTER → 2019-02-16 12:08 | Outpatient (CLI) | payer MEDICARE, OTHER, SELFPAY ==
[2019-02-06 10:56] VITALS: BMI 38.9
[2019-02-16 12:39] VITALS: PULSE 102; PULSE 115; PULSE 83; PULSE 93; PULSE 97; PULSE 99; O2SAT 90; O2SAT 91; O2SAT 92; O2SAT 93
--- NOTE | 2019-02-16 12:50 | PCM.PSN.6M ---
PSN 6 Minute Walk Test - 6 Minute Walk Test 6 Minute Walk Test: 6 Minute Walk Test PSN:6-Minute Walk Test Start: 02/16/19 12:38 Freq: Status: Active Protocol: RESP.6MINW Document 02/16/19 12:39 SMB (Rec: 02/16/19 12:41 SMB [id number]) 6 Minute Walk Test Date Performed 02/16/19 Time Performed 12:22 Height 5 ft 8 in Weight: 120.202 kg Weight in Pounds 265.[address]: Bessy Galan Assistive device used: None Pre-test Oxygen Delivery Method Room Air Pulse Ox (%) 91 Pulse Rate (60-100 beats/min) 97 Dyspnea Maci Scale (0-10) 4 Exertion Maci Scale (6-20) 11 1st minute Oxygen Delivery Method Room Air Pulse Ox (%) 92 Pulse Rate (60-100 beats/min) 93 2nd minute Oxygen Delivery Method Room Air Pulse Ox (%) 91 Pulse Rate (60-100 beats/min) 83 Number of Rests Taken 1 Reported Symptoms Increased Work of Breathing 3rd minute Oxygen Delivery Method Room Air Pulse Ox (%) 90 Pulse Rate (60-100 beats/min) 99 Number of Rests Taken 1 Reported Symptoms Increased Work of Breathing 4th minute Oxygen Delivery Method Room Air Pulse Ox (%) 92 Pulse Rate (60-100 beats/min) 102 H 5th minute Oxygen Delivery Method Room Air Pulse Ox (%) 93 Pulse Rate (60-100 beats/min) 115 H 6th minute Oxygen Delivery Method Room Air Pulse Ox (%) 92 Pulse Rate (60-100 beats/min) 115 H Reported Symptoms Increased Work of Breathing Post-test Oxygen Delivery Method Room Air Pulse Ox (%) 93 Pulse Rate (60-100 beats/min) 102 H Dyspnea Maci Scale (0-10) 7 Exertion Maci Scale (6-20) 14 Full Laps Walked 8 Partial Lap, Number of Tiles Walked 17 Total Distance Walked (ft) 489 - Interpretation Interpretation: The patient was noted to have a decreased baseline saturation of 91%. The patient then started ambulating and over the course of 6 minutes was able to travel 489 feet with an oxygen becka of 90%. Some tachycardia was noted by the end of the walk with a peak heart rate of 115 bpm. These findings are consistent with a respiratory limitation exercise tolerance. - Recommendations Recommendations: No supplemental oxygen is indicated at this time. However, patient will need to be followed closely given level of baseline desaturation.
== END ==
PROVIDERS: Family Provider Family Medicine Geriatric Medicine; PCP Family Medicine Geriatric Medicine; Referring Provider Nurse Practitioner Acute Care; Visit Provider Nurse Practitioner Acute Care
DX: R06.00 Dyspnea, unspecified (principal)
CPT/HCPCS: 94618

== ENCOUNTER → 2019-02-21 10:48 | Outpatient (CLI) | payer MEDICARE, OTHER, SELFPAY ==
[2019-02-20 09:31] VITALS: BMI 42.5
[2019-02-21 12:03] LABS: Absolute Lymphocyte Count 1.52 X10^3/uL (0.83-4.51); Absolute Neutrophil Count 7.6 X10^3/uL (2.0-7.7); Basophil# 0.04 X10^3/uL; Basophil% 0.4 % (0-1); Eosinophil# 0.28 X10^3/uL; Eosinophils% 2.8 % (0-5); Hematocrit 35.9 % (37-47); Hemoglobin 10.8 g/dL (12.0-15.0); Lymphocyte # 1.52 X10^3/ul (4.0); Lymphocyte % 14.9 % (19-41); Mean Corp Hgb Conc 30.1 g/dL (32-36); Mean Corpuscular Hgb 25.7 pg (27.0-32.0); Mean Corpuscular Volume 85.5 fL (81-99); Mean Platelet Vol. 11.2 fl (6.2-12.0); Monocyte# 0.64 X10^3/uL; Monocyte% 6.3 % (0-10); NRBC Flagged by Analyzer 0 % (0-5); Neutrophil # 7.64 X10^3/uL (2.7-7.7); Neutrophil % 75.1 % (47-70); Platelet Count 316 K/mm3 (150-450); RBC Distribution Width CV 16.1 % (11.6-14.6); RBC Distribution Width SD 50.4 fl (35.1-43.9); White Blood Count 10.2 K/mm3 (4.4-11.0)
[2019-02-21 12:45] LABS: Anion Gap 4 (5-15); BUN 20 mg/dL (7-18); BUN/Creat Ratio 15.2 RATIO (10-20); Calcium,Total 8.8 mg/dL (8.5-10.1); Chloride 106 mmol/L (98-107); Creatinine, Serum 1.32 mg/dL (0.55-1.02); EST Glomerular Filtration Rate 41 mL/min (>60); Est Glom Filt Rate - Afr Amer 50 mL/min (>60); Glucose 237 mg/dL (74-106); Magnesium 2.2 mg/dL (1.6-2.6); Potassium 4.2 mmol/L (3.5-5.1); Sodium Level 139 mmol/L (136-145); Thyroid Stim Hormone (TSH) 3.27 uIU/mL (0.358-3.74)
== END ==
PROVIDERS: Family Provider Family Medicine Geriatric Medicine; PCP Family Medicine Geriatric Medicine; Referring Provider Physician Assistant Medical; Visit Provider Physician Assistant Medical
DX: I48.0 Paroxysmal atrial fibrillation (principal); I51.9 Heart disease, unspecified
CPT/HCPCS: 36415; 80048; 83735; 84443; 85025

== ENCOUNTER → 2019-03-02 15:09 | Outpatient (CLI) | payer MEDICARE, OTHER, SELFPAY ==
[2019-02-20 09:31] VITALS: BMI 42.5
[2019-03-02 16:46] LABS: Absolute Lymphocyte Count 1.99 X10^3/uL (0.83-4.51); Basophil# 0.06 X10^3/uL; Basophil% 0.5 % (0-1); Eosinophil# 0.28 X10^3/uL; Eosinophils% 2.5 % (0-5); Hematocrit 37.4 % (37-47); Lymphocyte # 1.99 X10^3/ul (4.0); Lymphocyte % 17.8 % (19-41); Mean Corp Hgb Conc 29.4 g/dL (32-36); Mean Corpuscular Hgb 25.2 pg (27.0-32.0); Mean Corpuscular Volume 85.8 fL (81-99); Mean Platelet Vol. 10.5 fl (6.2-12.0); Monocyte# 0.81 X10^3/uL; Monocyte% 7.2 % (0-10); NRBC Flagged by Analyzer 0 % (0-5); Neutrophil # 7.96 X10^3/uL (2.7-7.7); Neutrophil % 71.2 % (47-70); Platelet Count 366 K/mm3 (150-450); RBC Distribution Width CV 16.2 % (11.6-14.6); RBC Distribution Width SD 50.3 fl (35.1-43.9); Red Blood Count 4.36 M/mm3 (4.2-5.4); White Blood Count 11.2 K/mm3 (4.4-11.0)
[2019-03-02 17:05] LABS: ALB/GLOB Ratio 0.9 RATIO (0.9-2.4); AST(SGOT) 17 U/L (15-37); Alanine Aminotransfer ALT/SGPT 20 U/L (13-56); Albumin, Serum 3.3 g/dL (3.2-5.0); Alkaline Phosphatase 113 U/L (45-117); Anion Gap 7 (5-15); BUN 20 mg/dL (7-18); BUN/Creat Ratio 14.8 RATIO (10-20); Calcium,Total 9.1 mg/dL (8.5-10.1); Chloride 109 mmol/L (98-107); Creatinine, Serum 1.35 mg/dL (0.55-1.02); EST Glomerular Filtration Rate 40 mL/min (>60); Est Glom Filt Rate - Afr Amer 49 mL/min (>60); Globulin 3.8 g/dL (2.2-4.2); Glucose 158 mg/dL (74-106); Potassium 4.2 mmol/L (3.5-5.1); Protein, Total 7.1 g/dL (6.4-8.2); Sodium Level 144 mmol/L (136-145); Thyroid Stim Hormone (TSH) 6.88 uIU/mL (0.358-3.74)
[2019-03-02 17:06] LABS: Vitamin D,25 Hydroxy 30.5 ng/mL (29.95-100.01)
== END ==
PROVIDERS: Family Provider Family Medicine Geriatric Medicine; PCP Family Medicine Geriatric Medicine; Visit Provider Family Medicine Geriatric Medicine
DX: E11.9 Type 2 diabetes mellitus without complications (principal); E55.9 Vitamin D deficiency, unspecified; I10 Essential (primary) hypertension
CPT/HCPCS: 36415; 80053; 82306; 84443; 85025

== ENCOUNTER → 2019-03-10 06:58 | Outpatient (CLI) | payer MEDICARE, OTHER, SELFPAY ==
[2019-02-20 09:31] VITALS: BMI 42.5
--- NOTE | 2019-03-10 06:59 | ECHOCS_ITS ---
Reason For Study: AFIB/FLUTTER Procedure This was a 2D Doppler, Color Flow transthoracic echocardiogram. The study was technically difficult. Due to body habitus. Contrast injection was performed. Exam performed in department. Left Ventricle Normal LV size. Moderate concentric left ventricular hypertrophy. Left ventricular systolic function is normal. The estimated ejection fraction is 65 %. No regional wall motion abnormalities noted. Right Ventricle Normal RV size. Normal systolic function. Atria Normal left atrium. Tricuspid Valve Normal tricuspid valve. Mild (1+) tricuspid valve insufficiency. Pulmonary artery systolic pressure is 35 mmHg. Aortic Valve The aortic valve is not well visualized. Pulmonic Valve The pulmonic valve is not well visualized. Great Vessels Normal aortic root. The pulmonary artery is normal size. Normal inferior vena cava. Pericardium/Pleural No pericardial effusion. Medication Diluted definity 4.0ml given slow IV push to enhance endocardial definition. MMode/2D Measurements & Calculations LVIDd: 5.1 cm IVSd: 1.8 cm Ao root diam: 3.5 cm LVIDs: 3.8 cm LVPWd: 1.5 cm FS: 25.4 % LAV(MOD-bp): 110.5 ml LA A4 area: 31.1 cm2 LA dimension(2D): 4.8 cm LAV(MOD-bp) Indexed: 47.2 ml/m2 LAV(MOD-sp2): 102.5 ml LAV(MOD-sp4): 118.3 ml RA A4 area: 28.1 cm2 Doppler Measurements & Calculations MV E max zoe: 120.9 cm/sec Ao V2 max: 107.9 cm/sec LV V1 max: 78.3 cm/sec Ao max P.7 mmHg LV V1 max P.5 mmHg PA V2 max: 107.4 cm/sec TR max zoe: 279.3 cm/sec TR max P.6 mmHg Interpretation Summary Normal LV size. Moderate concentric left ventricular hypertrophy. Left ventricular systolic function is normal. The estimated ejection fraction is 65 %. Contrast injection was performed. Ordering Physician: Mitali Hagen Referring Physician: Alexy Douglas Chi Performed By: Susan Thompson RDCS, RVT
--- NOTE | 2019-03-10 12:37 | STRESSREP_ITS ---
Stress Test Report Pharmacologic myocardial perfusion stress test. 78-year-old lady with a history of shortness of breath. Stress protocol: Resting EKG demonstrates atrial fibrillation with a rate of 122 bpm right bundle branch block is noted. Resting blood pressure is 132/78 mmHg. 0.4 mg of regadenoson was infused per usual protocol followed by rapid venous saline flush injection continuous biology research assistant was performed. The maximum heart rate attained was 141 bpm which was 100% maximum predicted heart rate the maximum workload was 1 metabolic equivalent. At rest there were no ST or T wave changes noted suggest abnormal flow reserve. Resting blood pressure is 132/78 mmHg. Myocardial perfusion protocol. 14.9 mCi of technetium 99m sestamibi was injected stress. 0.4 mg of regadenoson was infused per usual protocol peak infusion 44.7 mCi of technetium 99m sestamibi was injected stress images were obtained stress and rest images were reconstructed in comparing the short axis vertical and horizontal long axis. Gated images were also obtained Perfusion SPECT analysis: Review of the stress images demonstrate normal uptake of tracer noted in all areas of myocardium the resting images similar demonstrate normal uptake of tracer noted in all areas of myocardium no obvious reversibility is no suggest ischemia no previous infarct is noted. Gated SPECT analysis: The gated ejection fraction is noted to be 47%. Conclusion: Normal pharmacologic myocardial perfusion stress test. Atrial fibrillation. Mildly reduced ejection fraction.
== END ==
PROVIDERS: Family Provider Family Medicine Geriatric Medicine; PCP Family Medicine Geriatric Medicine; Referring Provider Physician Assistant Medical; Visit Provider Physician Assistant Medical
DX: I48.0 Paroxysmal atrial fibrillation (principal); I51.9 Heart disease, unspecified; R06.09 Other forms of dyspnea
CPT/HCPCS: 78452; 93017; 93306; A9500; Q9957; A4216; C8929; J2785

== ENCOUNTER 2019-03-20 11:09 | Day surgery (SDC) | payer MEDICARE, OTHER, SELFPAY ==
[2019-02-20 09:31] VITALS: BMI 42.5
[2019-03-19 11:10] VITALS: BMI 42.5
[2019-03-20 11:41] LABS: Bedside Glucose 131 mg/dL (70-110)
--- NOTE | 2019-03-20 12:36 | CARDIOVERS ---
Cardioversion Cardioversion: Procedure: DC cardioversion. 79-year-old lady with a history of persistent atrial fibrillation symptomatic. Patient has been on anticoagulation. The patient was brought into the cardiac catheterization noninvasive lab in the cardiovascular [place]. Patient was seen by Dr. Greenwood of the critical care division. Informed consent was obtained. Anterior-posterior pads were applied. Medications were verified. The patient was then administered 40 mg of intravenous propofol. 200 J of synchronized DC cardioversion energy were applied with prompt reversal to sinus rhythm. Patient tolerated the procedure well. There were intermittent periods of atrial fibrillation noted with a right bundle branch block. Conclusion: Successful DC cardioversion to sinus rhythm. Continue anticoagulation. We will follow-up in the office.
--- NOTE | 2019-03-20 13:19 | PCM.OP.PRO ---
Procedure Report Date of Procedure: 03/20/19 CONSCIOUS SEDATION REPORT DATE OF SERVICE: March 20, 2019 BRIEF HISTORY OF PRESENT ILLNESS: The patient is an 79-year-old female who presented to [facility] for an elective outpatient cardioversion due to underlying atrial fibrillation. The patient has never previously undergone a cardioversion. She is currently anticoagulated on Eliquis. Her last surface echocardiogram revealed an ejection fraction of approximately 65%. The patient denies a history of COPD, asthma or obstructive sleep apnea. She denies any previous anesthetic complications. PHYSICAL EXAMINATION: VITAL SIGNS: Reviewed and were acceptable. GENERAL: The patient is an obese female, in no apparent distress, speaking in full sentences. HEENT: Normocephalic, atraumatic. Mucous membranes are moist and pink. Good mouth opening noted. Trachea is midline. CHEST: S1, S2 irregularly irregular. No murmurs, rubs or gallops were noted. LUNGS: Clear to auscultation bilaterally without appreciable wheezes, rales or rhonchi. ABDOMEN: Soft, nontender, nondistended. Positive bowel sounds. EXTREMITIES: There is no clubbing, cyanosis or edema. ASA Class: II DESCRIPTION OF PROCEDURE: After confirmation of informed consent, the patient's anesthesia plan was reviewed in detail. Propofol was chosen. Risks and benefits were reviewed and the patient agreed to proceed. At 1223, the patient was given 40 mg of propofol. The patient achieved an appropriate level of sedation and was given a 200 joule synchronized cardioversion by Dr. Tesfaye at the bedside. This was successful in achieving normal sinus rhythm. The patient was monitored until 1233, at which time she reached her baseline mental status and function. The patient tolerated the procedure well. COMPLICATIONS: None ESTIMATED BLOOD LOSS: None RECOMMENDATIONS: Okay to recover in usual fashion. Code Visit 9xxxx: Other Procedure See Report - [id number]
== END 2019-03-20 13:35 | disposition home or self-care (01) ==
PROVIDERS: Family Provider Family Medicine Geriatric Medicine; PCP Family Medicine Geriatric Medicine; Referring Provider Internal Medicine Cardiovascular Disease; Visit Provider Internal Medicine Cardiovascular Disease
DX: I48.0 Paroxysmal atrial fibrillation (principal); Z79.01 Long term (current) use of anticoagulants; I45.10 Unspecified right bundle-branch block; E78.5 Hyperlipidemia, unspecified; J44.9 Chronic obstructive pulmonary disease, unspecified; Z85.3 Personal history of malignant neoplasm of breast; E03.9 Hypothyroidism, unspecified; E11.9 Type 2 diabetes mellitus without complications; N18.3 Chronic kidney disease, stage 3 (moderate); I12.9 Hypertensive chronic kidney disease with stage 1 through stage 4 chronic kidney disease, or unspecified chronic kidney disease; Z87.891 Personal history of nicotine dependence; R53.83 Other fatigue; I51.89 Other ill-defined heart diseases
CPT/HCPCS: 82962; 92960; 93005; J7040

== ENCOUNTER 2019-03-21 06:47 | Inpatient (IN) | payer MEDICARE, OTHER, SELFPAY ==
[2019-03-19 11:10] VITALS: BMI 42.5
[2019-03-21] VITALS (11 sets, daily range): BP systolic 133–156; BP diastolic 61–84; PULSE 57–113; RESP 18–24; TEMP 36.5–36.9; O2SAT 87–98; BMI 47.8; BMI 42.7
--- NOTE | 2019-03-21 06:54 | EKG12_ITS ---
Test Reason : SOB Blood Pressure : / mmHG Vent. Rate : 071 BPM Atrial Rate : 071 BPM P-R Int : 140 ms QRS Dur : 138 ms QT Int : 438 ms P-R-T Axes : 074 069 -44 degrees QTc Int : 475 ms Sinus rhythm with Premature supraventricular complexes and with occasional Premature ventricular comp lexes Right bundle branch block T wave abnormality, consider lateral ischemia Abnormal ECG Confirmed by KATIE SELF, ISAÍAS ([id number]), editor news PAUL GALAN ([id number]) on 03/24/2019 8:46:58 AM Referred By: KAYLAH Confirmed By:ISAÍAS WILSON MD
--- NOTE | 2019-03-21 06:56 | RAD_ITS ---
STUDY: X-RAY CHEST REASON FOR EXAM: Female, 79 years old. SOB and CP -- had cardioversion yesterday TECHNIQUE: Single AP portable view of the chest. COMPARISON: February 06, 2019. FINDINGS: There are monitoring devices. There are interstitial and groundglass increased opacities of the lungs. There is no demonstrated pleural abnormality. There is mild cardiac enlargement. Normal mediastinum and binh. Normal visualized pulmonary arteries. Normal visualized aortic arch and descending thoracic aorta. There is demineralization of the osseous structures. There are degenerative changes of the spine. Normal visualized ribs, clavicles, and shoulders. There is no demonstrated abnormality of the visualized soft tissue structures of the upper abdomen. RAD/Chest 1 View (Portable) IMPRESSION: Cardiac enlargement. Interstitial edema. Electronically Signed: Tres Reynolds MD at 8:16 EST , Service support ,
[2019-03-21 07:03] LABS: Absolute Lymphocyte Count 1.54 X10^3/uL (0.83-4.51); Absolute Neutrophil Count 8.9 X10^3/uL (2.0-7.7); Basophil# 0.06 X10^3/uL; Basophil% 0.5 % (0-1); Eosinophils% 3.4 % (0-5); Hematocrit 35.1 % (37-47); Hemoglobin 10.4 g/dL (12.0-15.0); Lymphocyte # 1.54 X10^3/ul (4.0); Lymphocyte % 13.1 % (19-41); Mean Corp Hgb Conc 29.6 g/dL (32-36); Mean Corpuscular Hgb 25.2 pg (27.0-32.0); Mean Corpuscular Volume 85.2 fL (81-99); Mean Platelet Vol. 10.7 fl (6.2-12.0); Monocyte# 0.79 X10^3/uL; Monocyte% 6.7 % (0-10); NRBC Flagged by Analyzer 0 % (0-5); Neutrophil # 8.89 X10^3/uL (2.7-7.7); Neutrophil % 75.7 % (47-70); Platelet Count 333 K/mm3 (150-450); RBC Distribution Width CV 16.2 % (11.6-14.6); RBC Distribution Width SD 50.2 fl (35.1-43.9); Red Blood Count 4.12 M/mm3 (4.2-5.4); White Blood Count 11.8 K/mm3 (4.4-11.0)
[2019-03-21] MEDS: Furosemide 40 MG/4 ML Vial IV ×3 (07:20→21:46)
--- NOTE | 2019-03-21 07:32 | ED.VIS.CHEST ---
History of Present Illness Chief Complaint: Shortness of Breath Informant: Patient, EMS Narrative: Patient presenting for evaluation secondary to chest pain and shortness of breath. Patient has an underlying history of atrial fibrillation, paroxysmal as well as COPD. Patient apparently underwent elective cardioversion yesterday. She reports that since the procedure she has been dealing with shortness of breath, but it became acutely worse tonight. Patient states that she is not typically on supplemental oxygen but required to use her supplemental oxygen tonight. Patient also reports that she is having chest pain. She reports that it is a sharp type pain. Patient also endorses that she has been having some lower extremity edema. Patient has a recent echocardiogram with a normal ejection fraction. Patient was noted to be hypoxic on EMS arrival, was placed on nonrebreather and was brought to the emergency department. Past Medical History - Allergies and Home Meds Allergies/Adverse Reactions: Allergies Sulfa (Sulfonamide Antibiotics) Allergy (Verified 03/21/19 07:03) PEELING RASH Primary Care Physician: Alexy Douglas Chi, MD [Primary Care Provider] - Past Medical History: - - Paroxysmal A. fib, hypertension, diabetes, COPD Surgical History: mastectomy Smoking Status: Former smoker - Family History Maternal Family History: Family History (Last Reviewed 02/06/19 @ 11:06 by Bessy Galan NP-C) Mother Colon cancer Cancer Daughter Cancer Sister CAD (coronary artery disease) Family History: Reports: No pertinent history Review of Systems All systems negative except as indicated General: Denies: Chills, Fever, Sweats Eyes: Denies: Visual changes - bilaterally, Diplopia ENT: Denies: Rhinorrhea, Sore throat Cardiovascular: Reports: Chest pain Respiratory: Reports: Dyspnea Gastrointestinal: Denies: Abdominal pain, Nausea, Vomiting, Diarrhea, Melena, Hematochezia Genitourinary: Denies: Dysuria, Hematuria, Frequency Musculoskeletal: Reports: Swelling Skin: Denies: Rash, Wounds Neurological: Denies: Headache, Weakness, Numbness Physical Exam Vital Signs/Narrative: Vital Signs Temp Pulse Resp BP Pulse Ox 03/21/19 06:48 97.7 F L 65 23 H 156/76 H 92 Inital Vital Signs reviewed: Yes General: Obese, Acute Distress - Mild to moderate secondary to respiratory discomfort Head: Normocephalic, Atraumatic Eyes: Perrl, EOMI ENT: Moist mucous membranes Neck: Supple Cardiovascular: Regular rate, Regular rhythm, No murmurs, - - 2+ radial pulses bilaterally symmetric Respiratory: - - Tachypnea with shallow respirations, clear lung sounds. Abdomen: Soft, Nontender, Nondistended, Normal bowel sounds Extremities: Edema - 2+ bilateral lower extremity symmetric Skin: Normal color, No rash Neurological: Alert, Oriented x3, Cranial nerves II-XII grossly intact, Normal Strength, Normal Sensation Psychological: Normal affect, Normal Mood Diagnostic/Tx/Re-eval Chest X-Ray - ED: 1 View, Read by ED Physician, Chronic Changes, - - Linear atelectasis without evidence of congestive heart failure or infiltrate - EKG Initial EKG Interpretation: - - Sinus rhythm with PVCs and PACs. Right bundle branch block morphology noted. Lateral T wave inversions consistent with patient's prior EKG. No evidence of acute ST segment changes - Medical Decision Making Patient presented secondary to shortness of breath and chest pain. EKG showed no acute changes. CBC unremarkable. Chemistry shows no significant elevation of the patient's creatinine. Troponin found to be negative. Patient's chest x-ray by my personal review does not show significant evidence of congestive heart failure. Patient was placed on supplemental oxygen and did have improvement of her pulse ox. I discussed patient's case with her bush and vine fruit crop farmer, who feels that this potentially is secondary to congestive heart failure. He recommended checking a BNP and giving the patient a dose of Lasix. I still have somewhat of a concern for the possibility of pulmonary embolism given the patient's clear lung sounds, d-dimer was added on and is still pending at this time. Patient will be signed out to the oncoming physician who will follow up on the patient's laboratory studies ED Disposition - Plan for ED Patient: Disposition: Acute Care Hospital [facility] Diagnosis: Hypoxia, Chest pain
[2019-03-21 07:44] LABS: Anion Gap 3 (5-15); BUN 20 mg/dL (7-18); BUN/Creat Ratio 15.4 RATIO (10-20); Calcium,Total 8.3 mg/dL (8.5-10.1); Chloride 108 mmol/L (98-107); EST Glomerular Filtration Rate 42 mL/min (>60); Est Glom Filt Rate - Afr Amer 51 mL/min (>60); Estimated Creatinine Clearance 33.56 ml/min; Glucose 148 mg/dL (74-106); Potassium 4.2 mmol/L (3.5-5.1); Sodium Level 141 mmol/L (136-145)
[2019-03-21 08:04] LABS: D-Dimer Quantitative (DVT/PE) 0.67 FEU/ug/m (0.27-0.49)
[2019-03-21 08:10] LABS: Carboxyhemoglobin Frac (CO) 2.3 % (0.0-1.5)
--- NOTE | 2019-03-21 12:05 | PCM.HP.STD ---
Problem List (1) Hypoxia Status: Acute (2) Chest pain Status: Acute (3) Acute dyspnea Status: Acute (4) Paroxysmal atrial fibrillation Status: Acute (5) Essential (primary) hypertension Status: Chronic (6) Fatigue Status: Chronic (7) Hypersomnia Status: Chronic (8) COPD (chronic obstructive pulmonary disease) Status: Chronic (9) Breast cancer Status: Resolved Qualifiers: Laterality: right Comment: IN REMISSION History of Present Illness Date of Admission: 03/21/19 Chief Complaint: Shortness of breath and chest discomfort The patient is a 79 year old F with multiple comorbidities including paroxysmal atrial fibrillation who underwent DC cardioversion for underlying atrial fibrillation on 03/20/2018. Procedure was successful patient discharged home she however presented back to the emergency department the following morning with complaints of shortness of breath. Patient in addition also did complain of chest discomfort. On further questioning patient admitted to recent significant weight gain. Her assessment in the emergency department was consistent with acute congestive heart failure admitted to monitored bed for subsequent management. She had an elevated d-dimer which was normal when adjusted for age. Past Medical History Past Medical History (Chronic Problems): Chronic Problems (Last Reviewed 03/21/19 @ 12:08 by Martin Davies MD) Essential (primary) hypertension (Chronic) Fatigue (Chronic) Hypersomnia (Chronic) COPD (chronic obstructive pulmonary disease) (Chronic) Medical History: Medical History (Last Reviewed 03/21/19 @ 12:08 by Martin Davies MD) Paroxysmal atrial fibrillation (Acute) I48.0 Essential (primary) hypertension (Chronic) I10 Fatigue (Chronic) R53.83 Hypersomnia (Chronic) G47.10 COPD (chronic obstructive pulmonary disease) (Chronic) J44.9 Breast cancer (Resolved) C50.919 IN REMISSION BMI 39.0-39.9,adult Z68.39 CKD (chronic kidney disease) stage 3, GFR 30-59 ml/min N18.3 DMII (diabetes mellitus, type 2) E11.9 Disc degeneration, lumbar M51.36 Erosion of bladder suspension mesh 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.718A Hypothyroidism E03.9 Obesity E66.9 SHAKIRA (stress urinary incontinence, female) N39.3 Stage 2 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 J44.9 Tobacco dependence in remission F17.201 History of hysterectomy Z90.710 Hypoxia R09.02 Secondary pulmonary arterial hypertension (Resolved) I27.21 Diastolic dysfunction (Inactive) I51.9 Non-rheumatic tricuspid valve insufficiency (Inactive) I36.1 Right hip pain (Inactive) M25.551 UTI (urinary tract infection) (Inactive) N39.0 Allergies Sulfa (Sulfonamide Antibiotics) Allergy (Verified 03/21/19 07:03) PEELING RASH Home Medications: Ambulatory Orders Medication Instructions Recorded Rosuvastatin Calcium [Crestor] 20 mg PO QHS 07/03/13 Apixaban [Eliquis] 2.5 mg PO BID 05/28/14 Glimepiride [Amaryl] 4 mg PO DAILY 11/15/16 Oxybutynin Chloride [Ditropan Xl] 5 mg PO DAILY 11/15/16 furosemide 40 mg tablet 40 mg PO BID tab 02/04/18 levothyroxine 175 mcg tablet 175 mcg PO DAILY 02/04/18 potassium chloride 10 mEq 20 meq PO DAILY cap 02/04/18 capsule,extended release amlodipine 5 mg tablet 1 tablet PO QODAY 30 Days #30 tab 08/20/18 benazepril 40 mg tablet 40 mg PO DAILY #90 tab 12/11/18 clonidine HCl 0.1 mg tablet 0.1 mg PO QHS 02/20/19 metoprolol tartrate 100 mg tablet 100 mg PO BID #60 tab 02/27/19 Surgical History: Surgical History (Last Reviewed 03/21/19 @ 12:08 by Martin Davies MD) History of cardioversion Onset Date: 03/20/19 Z98.890 History of left heart catheterization Z98.890 History of partial mastectomy Z90.10 Surgical History: mastectomy Smoking Status: Former smoker - *Family History Maternal Family History: Family History (Last Reviewed 03/21/19 @ 12:08 by Martin Davies MD) Mother Colon cancer Cancer Daughter Cancer Sister CAD (coronary artery disease) History Items: No pertinent history Review of Systems Constitutional: Reports: Weight Change. Denies: Anorexia, Chills, Fever, Night Sweats HEENT: Denies: Head Aches, Sinus Congestion, Sinus Drainage Cardiovascular: Reports: Chest Pain, Edema. Denies: Orthopnea, Palpitations, Paroxysmal Noc. Dyspnea Respiratory: Reports: Shortness of Breath. Denies: Shortness of breath at rest Gastrointestinal: Denies: Abdominal Pain, Hematemesis, Hematochezia, Nausea, Melena Genitourinary: Denies: Dysuria, Frequency, Hematuria, Urgency Musculoskeletal: Denies: Joint Pain, Joint Tenderness Skin: Denies: Rash Neurological: Denies: Focal weakness, Numbness, Tingling Psychiatric: Denies: Homicidal Ideations, Suicidal Ideations Hematologic/ Lymphatic: Denies: Easy Bruising, Easy Bleeding VTE Information - Inpt Only VTE Present on Admission: No VTE Mechan Device Prophylaxis: None VTE Pharm Prophylaxis ordered?: Yes Patient Problems: Active and Suspected Problems (Last Reviewed 03/21/19 @ 12:08 by Martin Davies MD) Hypoxia (Acute) Chest pain (Acute) Objective: GENERAL: cooperative HEENT: Atraumatic; EYES; Anicteric, Normal Conjunctiva NECK; supple, normal thyroid, RESPIRATORY: Diminished to auscultation CARDIOVASCULAR: Regular S1 S2, GI: soft, normoactive bowel sounds, : No Renal angle tenderness; EXTREMITIES: No edema, no clubbing, MUSCULOSKELETAL: no muscle waisting NEURO: Awake; no lateralizing signs. SKIN: No Rash PSYCH; Flat affect - Physical Exam Vitals/I&O's: Vital Signs Temp Pulse Resp BP Pulse Ox 97.7 F L 62 18 150/73 H 95 03/21/19 06:48 03/21/19 08:59 03/21/19 08:59 03/21/19 08:59 03/21/19 08:59 Oxygen Flow Rate (L/min) 6 Oxygen Delivery Method Nasal Cannula Weight: 127.4 kg Body Mass Index (BMI) 42.7 Finger Stick Blood Glucose 99 Laboratory Results 03/21/19 06:50: WBC 11.8 H, RBC 4.12 L, Hgb 10.4 L, Hct 35.1 L, MCV 85.2, MCH 25.2 L, MCHC 29.6 L, RDW Std Deviation 50.2 H, RDW Coeff of Sudha 16.2 H, Plt Count 333, MPV 10.7, Immature Gran % (Auto) 0.600, Neut % (Auto) 75.7 H, Lymph % (Auto) 13.1 L, [place] % (Auto) 6.7, Eos % (Auto) 3.4, Baso % (Auto) 0.5, Absolute Neuts (auto) 8.9 H, Absolute Lymphs (auto) 1.54, Nucleated RBC % 0 03/21/19 06:50: Sodium 141, Potassium 4.2, Chloride 108 H, Carbon Dioxide 30.0, Anion Gap 3 L, BUN 20 H, Creatinine 1.30 H, Estim Creat Clear Calc 33.56, Est GFR (MDRD) Af Amer 51 L, Est GFR (MDRD) Non-Af 42 L, BUN/Creatinine Ratio 15.4, Glucose 148 H, Calcium 8.3 L, Troponin I < 0.015 03/21/19 06:50: B-Natriuretic Peptide 224.0 H 03/21/19 06:50: D-Dimer Quant (PE/DVT) 0.67 H* 03/21/19 07:17: VBG Carboxyhemoglobin 2.3 H Current Medications Acetaminophen (Tylenol) 650 mg PO Q6H PRN PRN PRN Reason: Pain Score 1-3/Temp > 100.7 F Al Hydroxide/Mg Hydroxide (Mylanta Ii) 30 ml PO Q6H PRN PRN PRN Reason: Gastric Burning Albuterol Sulfate (Ventolin Aerosols) 2.5 mg INHALATION Q2H PRN PRN PRN Reason: SOB/Wheezing Amlodipine Besylate (Norvasc) mg PO QODAY DAVID Apixaban (Eliquis) 2.5 mg PO BID DAVID Atorvastatin Calcium (Lipitor) 40 mg PO QHS DAVID Clonidine (Catapres) 0.1 mg PO QHS DAVID Furosemide (Lasix) 40 mg IV Q8 DAVID Glucagon () 1 mg IM .X1 PRN PRN Reason: Hypoglycemia Guaifenesin (Robitussin) 20 ml PO Q4H PRN PRN PRN Reason: COUGH Dextrose (Dextrose 10%-Water) 250 mls @ 999 mls/hr IV .Q16M PRN; Protocol PRN Reason: HYPOGLYCEMIA Sodium Chloride () 250 mls @ 15 mls/hr IV .[id number] PRN PRN Reason: Saline Flush Insulin Human Lispro (Humalog Kwikpen (Bkc)) 0 unit SC ACHS DAVID; Protocol Levothyroxine Sodium (Synthroid) 175 mcg PO DAILY@0600 DAVID Lisinopril (Zestril) 40 mg PO DAILY DAVID Magnesium Hydroxide (Milk Of Magnesia) 30 ml PO DAILY PRN PRN PRN Reason: Constipation Melatonin (Melatonin) 3 mg PO QHS PRN PRN PRN Reason: INSOMNIA Metoprolol Tartrate (Lopressor (Beta Jadon)) 100 mg PO BID DAVID Nitroglycerin (Nitrostat) 0.4 mg SUBLINGUAL Q5M PRN PRN Reason: CARDIAC/CHEST PAIN Ondansetron HCl (Zofran) 4 mg IV Q8H PRN PRN PRN Reason: NAUSEA/VOMITING Oxycodone HCl (Oxyir) 5 mg PO Q4H PRN PRN PRN Reason: Pain Score 4-5/10 Oxycodone HCl (Oxyir) 10 mg PO Q4H PRN PRN PRN Reason: Pain Score 6-10/10 Potassium Chloride (K-Dur) 20 meq PO DAILY DAVID Promethazine HCl (Phenergan) 25 mg IM Q6H PRN PRN PRN Reason: Breakthrough Nausea/Vomiting Sodium Chloride () 10 - 40 ml IV UD PRN PRN Reason: SALINE FLUSH Assessment/Plan All Active Problems (Last Reviewed 03/21/19 @ 12:08 by Martin Davies MD) Hypoxia (Acute) Chest pain (Acute) Acute dyspnea (Acute) Paroxysmal atrial fibrillation (Acute) Breast cancer (Resolved) Secondary pulmonary arterial hypertension (Resolved) Patient is a-year-old lady with multiple comorbidities who presented with shortness of breath and assessment of acute congestive heart failure made admitted to a monitored bed for subsequent management 1. Acute congestive heart failure served ejection fraction Echo obtained on 03/10/2019 demonstrated EF of 65% with moderate concentric left ventricular hypertrophy. Patient has been admitted to monitored bed placed on fluid restriction, strict input and output, diuretics as well as supplemental oxygen 2. Chest pain Plan is rule out [place] with serial cardiac enzymes 3. Paroxysmal atrial fibrillation ?Patient underwent successful cardioversion on 03/20/2019 telemetry readings reviewed in the ICU reveals patient still been in sinus rhythm. Patient is on systemic anticoagulation with Eliquis did continue 4. Hypertension -blood pressure controlled, home medications continued with dose adjustment as needed 5. Hypothyroidism -patient is on levothyroxine home dose continued 6. Diabetes mellitus type 2 with complications including diabetic nephropathy - Patient is on oral agent held on admission placed on scheduled insulin with Accu-Cheks before meals and at bedtime with sliding scale coverage 7. Morbid obesity -with BMI of 42.7 lifestyle modification including weight loss advised 8. History of right breast CA status post mastectomy with subsequent neoadjuvant chemotherapy patient was managed on tamoxifen for 5 years discontinued a year ago 9. DVT prophylaxis patient is on Eliquis Code Visit OBSV E&M: 37793 Initial observation care L3
[2019-03-21 12:11] LABS: Bedside Glucose 126 mg/dL (70-110)
[2019-03-21] MEDS: APIXABAN 2.5 MG TABLET PO ×2 (13:15→21:46)
[2019-03-21] MEDS: Metoprolol Tartrate 100 MG Tablet PO ×2 (13:16→21:46)
[2019-03-21] MEDS: Lisinopril 40 MG Tablet PO (13:16)
[2019-03-21] MEDS: 0.9% Saline Lock 10 ML Syringe IV ×2 (15:27→21:46)
[2019-03-21 17:21] LABS: Bedside Glucose 132 mg/dL (70-110)
[2019-03-21] MEDS: cloNIDine HCl 0.1 MG Tablet PO (21:46)
[2019-03-21] MEDS: Atorvastatin Calcium 40 MG Tablet PO (21:46)
[2019-03-21 21:56] LABS: Bedside Glucose 164 mg/dL (70-110)
[2019-03-21] MEDS: Insulin Lispro 100 UNIT/ML INSULN.PEN SC (21:57)
[2019-03-22] VITALS (7 sets, daily range): BP systolic 120–128; BP diastolic 56–73; PULSE 53–71; RESP 18; TEMP 36.4–36.7; O2SAT 89–95
[2019-03-22] MEDS: Furosemide 40 MG/4 ML Vial IV (05:11)
[2019-03-22] MEDS: Levothyroxine 175 MCG Tablet PO (05:11)
[2019-03-22] MEDS: 0.9% Saline Lock 10 ML Syringe IV (05:12)
[2019-03-22 06:43] LABS: Anion Gap 7 (5-15); BUN 22 mg/dL (7-18); BUN/Creat Ratio 13.9 RATIO (10-20); Calcium,Total 8.4 mg/dL (8.5-10.1); Chloride 104 mmol/L (98-107); Creatinine, Serum 1.58 mg/dL (0.55-1.02); EST Glomerular Filtration Rate 33 mL/min (>60); Est Glom Filt Rate - Afr Amer 40 mL/min (>60); Estimated Creatinine Clearance 28.65 ml/min; Glucose 133 mg/dL (74-106); Potassium 3.9 mmol/L (3.5-5.1); Sodium Level 140 mmol/L (136-145)
[2019-03-22 06:50] LABS: Bedside Glucose 142 mg/dL (70-110)
--- NOTE | 2019-03-22 08:45 | DCINST_ITS ---
- Discharge Diagnoses Current Active Problems: Current Active and Chronic Problems (Last Reviewed 03/21/19 @ 12:08 by Martin Davies MD) Hypoxia (Acute) Chest pain (Acute) You will use the following diet at home:: Calorie/Carbohydrate Controlled (specify 1200, 1400, etc) - 1800 Your food should be the consistency of: Regular Discharge Activity: Return to Normal Activity Instructions: CHEST PAIN, NonCardiac Allergies/Adverse Reactions: Allergies Sulfa (Sulfonamide Antibiotics) Allergy (Verified 03/21/19 07:03) PEELING RASH Medications to take at Discharge Rosuvastatin Calcium [Crestor] 20 mg PO QHS 07/03/13 Apixaban [Eliquis] 2.5 mg PO BID 05/28/14 Oxybutynin Chloride [Ditropan Xl] 5 mg PO DAILY 11/15/16 furosemide 40 mg tablet 40 mg PO BID tab 02/04/18 levothyroxine 175 mcg tablet 175 mcg PO DAILY 02/04/18 potassium chloride 10 mEq capsule,extended release 20 meq PO DAILY cap 02/04/18 amlodipine 5 mg tablet 5 mg PO DAILY 30 Days #30 tab 08/20/18 benazepril 40 mg tablet 40 mg PO DAILY #90 tab 12/11/18 clonidine HCl 0.1 mg tablet 0.1 mg PO QHS 02/20/19 metoprolol tartrate 100 mg tablet 100 mg PO BID #60 tab 02/27/19 Glimepiride 1 mg PO DAILY #30 tab 03/22/19 The following prescriptions were given: Glimepiride 1 mg PO DAILY #30 tab Transmission Status: Pending to [facility] #30 Primary Care Physician: Alexy Douglas Chi, MD [Primary Care Provider] - Please follow up with your Primary Care Physician in: in 1 week Test Results: Test results from this visit will be discussed in further detail at your follow- up appointment, if applicable. Proposed Discharge Date: 03/22/19
--- NOTE | 2019-03-22 08:51 | PCM.DC.SUM ---
Discharge Date and Diagnosis - Problem List Patient Problems: Active and Suspected Problems (Last Reviewed 03/21/19 @ 12:08 by Martin Davies MD) Hypoxia (Acute) Chest pain (Acute) Date of Admission: 03/21/19 Date of Discharge: 03/22/19 - Primary Discharge Diagnosis Active and Suspected Problems (Last Reviewed 03/21/19 @ 12:08 by Martin Davies MD) Hypoxia (Acute) Chest pain (Acute) - Secondary Discharge Diagnosis Chronic Problems (Last Reviewed 03/21/19 @ 12:08 by Martin Davies MD) Essential (primary) hypertension (Chronic) Fatigue (Chronic) Hypersomnia (Chronic) COPD (chronic obstructive pulmonary disease) (Chronic) Hospital Course and Treatment Imaging Results: Clinical Impression(s) from Imaging Studies Chest X-Ray 03/21/19 06:56 IMPRESSION: Cardiac enlargement. Interstitial edema. Electronically Signed: Tres Reynolds MD at 8:16 EST , Service support , Operations: None Summary of Care Provided: Patient is a-year-old lady with multiple comorbidities who presented with shortness of breath and assessment of acute congestive heart failure made admitted to a monitored bed for subsequent management 1. Acute congestive heart failure served ejection fraction Echo obtained on 03/10/2019 demonstrated EF of 65% with moderate concentric left ventricular hypertrophy. Patient has been admitted to monitored bed placed on fluid restriction, strict input and output, diuretics as well as supplemental oxygen Patient did improve with therapy discharged home the day after admission 2. Chest pain Ruled out [place] with serial cardiac enzymes 3. Paroxysmal atrial fibrillation ?Patient underwent successful cardioversion on 03/20/2019 telemetry readings reviewed in the ICU reveals patient still been in sinus rhythm. Patient is on systemic anticoagulation with Eliquis did continue 4. Hypertension -blood pressure controlled, home medications continued with dose adjustment as needed 5. Hypothyroidism -patient is on levothyroxine home dose continued 6. Diabetes mellitus type 2 with complications including diabetic nephropathy - Patient is on oral agent held on admission placed on scheduled insulin with Accu-Cheks before meals and at bedtime with sliding scale coverage. Patient's Amaryl dose was started on discharge from 4 mg to 1 mg daily to decrease her risk of hypoglycemia given her impaired kidney function 7. Morbid obesity -with BMI of 42.7 lifestyle modification including weight loss advised 8. History of right breast CA status post mastectomy with subsequent neoadjuvant chemotherapy patient was managed on tamoxifen for 5 9. DVT prophylaxis patient is on Eliquis Patient Problems: Active and Suspected Problems (Last Reviewed 03/21/19 @ 12:08 by Martin Davies MD) Hypoxia (Acute) Chest pain (Acute) Objective: GENERAL: cooperative HEENT: Atraumatic; EYES; Anicteric, Normal Conjunctiva NECK; supple, normal thyroid, RESPIRATORY: Diminished to auscultation CARDIOVASCULAR: Regular S1 S2, GI: soft, normoactive bowel sounds, : No Renal angle tenderness; EXTREMITIES: No edema, no clubbing, MUSCULOSKELETAL: no muscle waisting NEURO: Awake; no lateralizing signs. SKIN: No Rash PSYCH; Flat affect - Physical Exam Vitals/I&O's: Vital Signs Temp Pulse Resp BP Pulse Ox 98.1 F 71 18 128/73 H 95 03/22/19 03:25 03/22/19 06:55 03/22/19 03:25 03/22/19 05:11 03/22/19 03:25 Oxygen Flow Rate (L/min) 2 Oxygen Delivery Method Nasal Cannula Weight: 126.1 kg Body Mass Index (BMI) 42.7 Finger Stick Blood Glucose 99 Intake and Output for Last 24 Hours 03/20/19 03/21/19 03/22/19 23:59 23:59 23:59 Intake Total 820 / 820 200 / 200 Output Total 1575 / 1575 1300 / 1300 Balance -755 / -755 -1100 / -1100 Laboratory Results 03/21/19 06:50: B-Natriuretic Peptide 224.0 H 03/21/19 12:05: POC Glucose 126 H 03/21/19 17:00: Potassium 4.0 03/21/19 17:16: POC Glucose 132 H 03/21/19 21:43: POC Glucose 164 H 03/22/19 05:35: Sodium 140, Potassium 3.9, Chloride 104, Carbon Dioxide 29.0, Anion Gap 7, BUN 22 H, Creatinine 1.58 H, Estim Creat Clear Calc 28.65, Est GFR (MDRD) Af Amer 40 L, Est GFR (MDRD) Non-Af 33 L, BUN/Creatinine Ratio 13.9, Glucose 133 H, Calcium 8.4 L 03/22/19 06:46: POC Glucose 142 H Current Medications Acetaminophen (Tylenol) 650 mg PO Q6H PRN PRN PRN Reason: Pain Score 1-3/Temp > 100.7 F Al Hydroxide/Mg Hydroxide (Mylanta Ii) 30 ml PO Q6H PRN PRN PRN Reason: Gastric Burning Albuterol Sulfate (Ventolin Aerosols) 2.5 mg INHALATION Q2H PRN PRN PRN Reason: SOB/Wheezing Amlodipine Besylate (Norvasc) 5 mg PO DAILY [facility] Apixaban (Eliquis) 2.5 mg PO BID [facility] Last Admin: 03/21/19 21:46 Dose: 2.5 mg Documented by: Atorvastatin Calcium (Lipitor) 40 mg PO QHS [facility] Last Admin: 03/21/19 21:46 Dose: 40 mg Documented by: Clonidine (Catapres) 0.1 mg PO QHS [facility] Last Admin: 03/21/19 21:46 Dose: 0.1 mg Documented by: Furosemide (Lasix) 40 mg IV Q8 [facility] Last Admin: 03/22/19 05:11 Dose: 40 mg Documented by: Glucagon () 1 mg IM .X1 PRN PRN Reason: Hypoglycemia Guaifenesin (Robitussin) 20 ml PO Q4H PRN PRN PRN Reason: COUGH Dextrose (Dextrose 10%-Water) 250 mls @ 999 mls/hr IV .Q16M PRN; Protocol PRN Reason: HYPOGLYCEMIA Sodium Chloride () 250 mls @ 15 mls/hr IV .[id number] PRN PRN Reason: Saline Flush Insulin Human Lispro (Humalog Kwikpen (Bkc)) 0 unit SC ACHS [facility]; Protocol Last Admin: 03/22/19 06:49 Dose: Not Given Documented by: Levothyroxine Sodium (Synthroid) 175 mcg PO DAILY@0600 [facility] Last Admin: 03/22/19 05:11 Dose: 175 mcg Documented by: Lisinopril (Zestril) 40 mg PO DAILY [facility] Last Admin: 03/21/19 13:16 Dose: 40 mg Documented by: Magnesium Hydroxide (Milk Of Magnesia) 30 ml PO DAILY PRN PRN PRN Reason: Constipation Melatonin (Melatonin) 3 mg PO QHS PRN PRN PRN Reason: INSOMNIA Metoprolol Tartrate (Lopressor (Beta Jadon)) 100 mg PO BID [facility] Last Admin: 03/21/19 21:46 Dose: 100 mg Documented by: Nitroglycerin (Nitrostat) 0.4 mg SUBLINGUAL Q5M PRN PRN Reason: CARDIAC/CHEST PAIN Nutritional Formula (Lactose Free) (Glucerna Shake) 120 ml PO 4X/DAY [facility] Last Admin: 03/21/19 21:46 Dose: Not Given Documented by: Ondansetron HCl (Zofran) 4 mg IV Q8H PRN PRN PRN Reason: NAUSEA/VOMITING Oxycodone HCl (Oxyir) 5 mg PO Q4H PRN PRN PRN Reason: Pain Score 4-5/10 Oxycodone HCl (Oxyir) 10 mg PO Q4H PRN PRN PRN Reason: Pain Score 6-10/10 Potassium Chloride (K-Dur) 20 meq PO DAILY [facility] Last Admin: 03/21/19 13:15 Dose: 20 meq Documented by: Promethazine HCl (Phenergan) 25 mg IM Q6H PRN PRN PRN Reason: Breakthrough Nausea/Vomiting Sodium Chloride () 10 - 40 ml IV UD PRN PRN Reason: SALINE FLUSH Last Admin: 03/22/19 05:12 Dose: 10 ml Documented by: Discharge Diet: 1800 Calorie Control Diet Discharge Activity: Return to Normal Activity Home Medications: Medications to take at Discharge Rosuvastatin Calcium [Crestor] 20 mg PO QHS 07/03/13 Apixaban [Eliquis] 2.5 mg PO BID 05/28/14 Oxybutynin Chloride [Ditropan Xl] 5 mg PO DAILY 11/15/16 furosemide 40 mg tablet 40 mg PO BID tab 02/04/18 levothyroxine 175 mcg tablet 175 mcg PO DAILY 02/04/18 potassium chloride 10 mEq capsule,extended release 20 meq PO DAILY cap 02/04/18 amlodipine 5 mg tablet 5 mg PO DAILY 30 Days #30 tab 08/20/18 benazepril 40 mg tablet 40 mg PO DAILY #90 tab 12/11/18 clonidine HCl 0.1 mg tablet 0.1 mg PO QHS 02/20/19 metoprolol tartrate 100 mg tablet 100 mg PO BID #60 tab 02/27/19 Glimepiride 1 mg PO DAILY #30 tab 03/22/19 Following Prescrptions Were Given to Patient: Glimepiride 1 mg PO DAILY #30 tab Transmission Status: Received by [facility] #30 Primary Care Physician: Alexy Douglas Chi, MD [Primary Care Provider] - Please follow up with your Primary Care Physician in: in 1 week Patient Instructions: CHEST PAIN, NonCardiac Disposition: Home Minutes spent on discharge:: 35 Patient Condition:: Stable Medical Necessity - Tobacco Use Smoking Status: Former smoker Meaningful Use Info Meaningful Use Diagnoses (Choose all that apply): CHF - CHF JIMI/ARB ordered at discharge?: Yes Documented LVEF (%): 65 Code Visit OBSV E&M: 86708 Observation care discharge
[2019-03-22] MEDS: APIXABAN 2.5 MG TABLET PO (09:50)
[2019-03-22] MEDS: amLODIPine 5 MG Tablet PO (09:50)
[2019-03-22] MEDS: Lisinopril 40 MG Tablet PO (09:50)
[2019-03-22] MEDS: Metoprolol Tartrate 100 MG Tablet PO (10:05)
--- NOTE | 2019-03-23 13:44 | CASEMGMT ---
FLETCHER CM DC PHONE CALL DC DATE: 03/22/2019 DC Disposition: Home Diagnosis on Discharge: Hypoxia LACE/STRATA: 11/18 Attempted call to home phone, #was not correct. Attempted call to cell phone, # is disconnected. Tiffani YUSUFN RN AC
== END 2019-03-22 10:53 | disposition home or self-care (01) | DRG 291 ==
LOC: ED 07:49 → ICU 11:39 → PCU 18:08
PROVIDERS: Emergency Medicine; Admitting Provider Internal Medicine; Emergency Provider Emergency Medicine; Family Provider Family Medicine Geriatric Medicine; PCP Family Medicine Geriatric Medicine; Visit Provider Internal Medicine
DX: I13.0 Hypertensive heart and chronic kidney disease with heart failure and stage 1 through stage 4 chronic kidney disease, or unspecified chronic kidney disease (principal); I50.31 Acute diastolic (congestive) heart failure; Z68.41 Body mass index [BMI] 40.0-44.9, adult; N18.3 Chronic kidney disease, stage 3 (moderate); Z87.891 Personal history of nicotine dependence; I48.0 Paroxysmal atrial fibrillation; Z79.01 Long term (current) use of anticoagulants; E03.9 Hypothyroidism, unspecified; E11.22 Type 2 diabetes mellitus with diabetic chronic kidney disease; E66.01 Morbid (severe) obesity due to excess calories; Z85.3 Personal history of malignant neoplasm of breast; Z90.10 Acquired absence of unspecified breast and nipple; Z92.21 Personal history of antineoplastic chemotherapy; Z79.84 Long term (current) use of oral hypoglycemic drugs; R09.02 Hypoxemia; J44.9 Chronic obstructive pulmonary disease, unspecified; G47.10 Hypersomnia, unspecified; R07.89 Other chest pain
CPT/HCPCS: 36415; 71045; 80048; 82375; 82962; 83880; 84132; 84484; 85025; 85379; 92960; 93005; 97802; 99285; J7030; J7040; A4216; J1940

== ENCOUNTER → 2019-04-08 10:48 | Outpatient (CLI) | payer MEDICARE, OTHER, SELFPAY ==
[2019-03-27 14:30] VITALS: BMI 42.5
== END ==
PROVIDERS: PCP Family Medicine Geriatric Medicine; Referring Provider Physician Assistant Medical; Visit Provider Physician Assistant Medical
DX: I48.0 Paroxysmal atrial fibrillation (principal)
CPT/HCPCS: 93225; 93226

== ENCOUNTER → 2019-04-22 14:47 | Outpatient (CLI) | payer MEDICARE, OTHER, SELFPAY ==
[2019-03-27 14:30] VITALS: BMI 42.5
[2019-04-22 15:53] LABS: Anion Gap 4 (5-15); BUN 19 mg/dL (7-18); BUN/Creat Ratio 13.9 RATIO (10-20); Calcium,Total 9.2 mg/dL (8.5-10.1); Chloride 110 mmol/L (98-107); Creatinine, Serum 1.37 mg/dL (0.55-1.02); EST Glomerular Filtration Rate 39 mL/min (>60); Est Glom Filt Rate - Afr Amer 48 mL/min (>60); Glucose 100 mg/dL (74-106); Potassium 4.2 mmol/L (3.5-5.1); Sodium Level 142 mmol/L (136-145)
== END ==
PROVIDERS: PCP Family Medicine Geriatric Medicine; Referring Provider Physician Assistant Medical; Visit Provider Physician Assistant Medical
DX: I10 Essential (primary) hypertension (principal)
CPT/HCPCS: 36415; 80048

== ENCOUNTER → 2019-06-04 13:51 | Outpatient (CLI) | payer MEDICARE, OTHER, SELFPAY ==
[2019-05-21 13:01] VITALS: BMI 41.3
[2019-06-04 16:15] LABS: Absolute Lymphocyte Count 2.59 X10^3/uL (0.83-4.51); Absolute Neutrophil Count 9.4 X10^3/uL (2.0-7.7); Basophil# 0.09 X10^3/uL; Basophil% 0.7 % (0-1); Eosinophil# 0.18 X10^3/uL; Eosinophils% 1.3 % (0-5); Hemoglobin 11.5 g/dL (12.0-15.0); Lymphocyte # 2.59 X10^3/ul (4.0); Lymphocyte % 19.2 % (19-41); Mean Corp Hgb Conc 28.8 g/dL (32-36); Mean Corpuscular Hgb 23.8 pg (27.0-32.0); Mean Corpuscular Volume 82.6 fL (81-99); Mean Platelet Vol. 11.1 fl (6.2-12.0); Monocyte# 1.19 X10^3/uL; Monocyte% 8.8 % (0-10); NRBC Flagged by Analyzer 0 % (0-5); Neutrophil # 9.37 X10^3/uL (2.7-7.7); Neutrophil % 69.5 % (47-70); Platelet Count 416 K/mm3 (150-450); RBC Distribution Width CV 16.7 % (11.6-14.6); RBC Distribution Width SD 49.7 fl (35.1-43.9); Red Blood Count 4.84 M/mm3 (4.2-5.4); White Blood Count 13.5 K/mm3 (4.4-11.0)
[2019-06-04 16:28] LABS: ALB/GLOB Ratio 0.8 RATIO (0.9-2.4); AST(SGOT) 17 U/L (15-37); Alanine Aminotransfer ALT/SGPT 24 U/L (13-56); Albumin, Serum 3.2 g/dL (3.2-5.0); Alkaline Phosphatase 107 U/L (45-117); Anion Gap 7 (5-15); BUN 29 mg/dL (7-18); BUN/Creat Ratio 20.7 RATIO (10-20); Calcium,Total 9.3 mg/dL (8.5-10.1); Chloride 108 mmol/L (98-107); EST Glomerular Filtration Rate 38 mL/min (>60); Est Glom Filt Rate - Afr Amer 47 mL/min (>60); Globulin 3.9 g/dL (2.2-4.2); Glucose 111 mg/dL (74-106); Potassium 4.9 mmol/L (3.5-5.1); Protein, Total 7.1 g/dL (6.4-8.2); Sodium Level 141 mmol/L (136-145); Thyroid Stim Hormone (TSH) 1.28 uIU/mL (0.358-3.74)
== END ==
PROVIDERS: PCP Family Medicine Geriatric Medicine; Visit Provider Family Medicine Geriatric Medicine
DX: E11.9 Type 2 diabetes mellitus without complications (principal); E55.9 Vitamin D deficiency, unspecified; I10 Essential (primary) hypertension
CPT/HCPCS: 36415; 80053; 82306; 84443; 85025

== ENCOUNTER → 2019-09-09 13:42 | Outpatient (CLI) | payer MEDICARE, OTHER, SELFPAY ==
[2019-03-27 14:30] VITALS: BMI 42.5
[2019-08-20 13:52] VITALS: BMI 41.3
[2019-09-09 16:52] LABS: Absolute Lymphocyte Count 2.12 X10^3/uL (0.83-4.51); Absolute Neutrophil Count 10.3 X10^3/uL (2.0-7.7); Basophil# 0.07 X10^3/uL; Basophil% 0.5 % (0-1); Eosinophil# 0.28 X10^3/uL; Hematocrit 39.2 % (37-47); Hemoglobin 11.9 g/dL (12.0-15.0); Lymphocyte # 2.12 X10^3/ul (4.0); Lymphocyte % 15.3 % (19-41); Mean Corp Hgb Conc 30.4 g/dL (32-36); Mean Corpuscular Hgb 25.1 pg (27.0-32.0); Mean Corpuscular Volume 82.5 fL (81-99); Mean Platelet Vol. 11.2 fl (6.2-12.0); Monocyte# 0.97 X10^3/uL; NRBC Flagged by Analyzer 0 % (0-5); Neutrophil # 10.29 X10^3/uL (2.7-7.7); Neutrophil % 74.5 % (47-70); Platelet Count 420 K/mm3 (150-450); RBC Distribution Width CV 17.7 % (11.6-14.6); RBC Distribution Width SD 50.8 fl (35.1-43.9); Red Blood Count 4.75 M/mm3 (4.2-5.4); White Blood Count 13.8 K/mm3 (4.4-11.0)
[2019-09-09 17:21] LABS: Vitamin D,25 Hydroxy 41.8 ng/mL
[2019-09-09 17:33] LABS: ALB/GLOB Ratio 0.8 RATIO (0.9-2.4); AST(SGOT) 10 U/L (15-37); Alanine Aminotransfer ALT/SGPT 18 U/L (13-56); Albumin, Serum 3.1 g/dL (3.2-5.0); Alkaline Phosphatase 106 U/L (45-117); Anion Gap 5 (5-15); BUN 21 mg/dL (7-18); BUN/Creat Ratio 15.8 RATIO (10-20); Chloride 103 mmol/L (98-107); Creatinine, Serum 1.33 mg/dL (0.55-1.02); EST Glomerular Filtration Rate 41 mL/min (>60); Est Glom Filt Rate - Afr Amer 49 mL/min (>60); Globulin 3.8 g/dL (2.2-4.2); Glucose 145 mg/dL (74-106); Potassium 4.4 mmol/L (3.5-5.1); Protein, Total 6.9 g/dL (6.4-8.2); Sodium Level 139 mmol/L (136-145); Thyroid Stim Hormone (TSH) 1.08 uIU/mL (0.358-3.74)
== END ==
PROVIDERS: PCP Family Medicine Geriatric Medicine; Visit Provider Family Medicine Geriatric Medicine
DX: E11.9 Type 2 diabetes mellitus without complications (principal); I10 Essential (primary) hypertension; E55.9 Vitamin D deficiency, unspecified
CPT/HCPCS: 36415; 80053; 82306; 84443; 85025

== ENCOUNTER → 2019-12-08 14:36 | Outpatient (CLI) | payer MEDICARE, OTHER, SELFPAY ==
[2019-11-05 13:45] VITALS: BMI 41.3
[2019-12-08 17:47] LABS: Absolute Lymphocyte Count 1.85 X10^3/uL (0.83-4.51); Absolute Neutrophil Count 8.3 X10^3/uL (2.0-7.7); Basophil# 0.05 X10^3/uL; Basophil% 0.4 % (0-1); Eosinophil# 0.29 X10^3/uL; Eosinophils% 2.5 % (0-5); Hematocrit 37.9 % (37-47); Lymphocyte # 1.85 X10^3/ul (4.0); Lymphocyte % 16.2 % (19-41); Mean Corpuscular Hgb 23.4 pg (27.0-32.0); Mean Corpuscular Volume 80.6 fL (81-99); Mean Platelet Vol. 10.7 fl (6.2-12.0); Monocyte# 0.87 X10^3/uL; Monocyte% 7.6 % (0-10); NRBC Flagged by Analyzer 0 % (0-5); Neutrophil # 8.32 X10^3/uL (2.7-7.7); Neutrophil % 72.7 % (47-70); Platelet Count 377 K/mm3 (150-450); RBC Distribution Width CV 17.3 % (11.6-14.6); RBC Distribution Width SD 51.2 fl (35.1-43.9); White Blood Count 11.5 K/mm3 (4.4-11.0)
[2019-12-08 17:58] LABS: Vitamin D,25 Hydroxy 34.4 ng/mL
[2019-12-08 18:06] LABS: ALB/GLOB Ratio 0.9 RATIO (0.9-2.4); AST(SGOT) 13 U/L (15-37); Alanine Aminotransfer ALT/SGPT 16 U/L (13-56); Albumin, Serum 3.1 g/dL (3.2-5.0); Alkaline Phosphatase 111 U/L (45-117); Anion Gap 6 (5-15); BUN 14 mg/dL (7-18); BUN/Creat Ratio 11.5 RATIO (10-20); Calcium,Total 8.9 mg/dL (8.5-10.1); Chloride 101 mmol/L (98-107); Creatinine, Serum 1.22 mg/dL (0.55-1.02); EST Glomerular Filtration Rate 45 mL/min (>60); Est Glom Filt Rate - Afr Amer 54 mL/min (>60); Globulin 3.6 g/dL (2.2-4.2); Glucose 215 mg/dL (74-106); Potassium 4.4 mmol/L (3.5-5.1); Protein, Total 6.7 g/dL (6.4-8.2); Sodium Level 138 mmol/L (136-145); Thyroid Stim Hormone (TSH) 1.77 uIU/mL (0.358-3.74)
== END ==
PROVIDERS: PCP Family Medicine Geriatric Medicine; Visit Provider Family Medicine Geriatric Medicine
DX: E11.9 Type 2 diabetes mellitus without complications (principal); E55.9 Vitamin D deficiency, unspecified; I10 Essential (primary) hypertension
CPT/HCPCS: 36415; 80053; 82306; 84443; 85025

== ENCOUNTER → 2020-01-29 07:47 | Outpatient (CLI) | payer MEDICARE, OTHER, SELFPAY ==
[2019-12-31 10:09] VITALS: BMI 40.7
[2020-01-29 08:05] LABS: Absolute Lymphocyte Count 1.69 X10^3/uL (0.83-4.51); Absolute Neutrophil Count 9.2 X10^3/uL (2.0-7.7); Basophil# 0.06 X10^3/uL; Basophil% 0.5 % (0-1); Eosinophil# 0.28 X10^3/uL; Eosinophils% 2.3 % (0-5); Hematocrit 39.6 % (37-47); Hemoglobin 11.5 g/dL (12.0-15.0); Lymphocyte # 1.69 X10^3/ul (4.0); Mean Corpuscular Hgb 23.5 pg (27.0-32.0); Mean Platelet Vol. 9.8 fl (6.2-12.0); Monocyte# 0.77 X10^3/uL; Monocyte% 6.4 % (0-10); NRBC Flagged by Analyzer 0 % (0-5); Neutrophil # 9.18 X10^3/uL (2.7-7.7); Neutrophil % 76.3 % (47-70); Platelet Count 369 K/mm3 (150-450); RBC Distribution Width CV 17.7 % (11.6-14.6); RBC Distribution Width SD 51.5 fl (35.1-43.9); Red Blood Count 4.89 M/mm3 (4.2-5.4)
[2020-01-29 08:34] LABS: Anion Gap 3 (5-15); BUN 18 mg/dL (7-18); BUN/Creat Ratio 14.6 RATIO (10-20); Calcium,Total 9.1 mg/dL (8.5-10.1); Chloride 107 mmol/L (98-107); Creatinine, Serum 1.23 mg/dL (0.55-1.02); EST Glomerular Filtration Rate 45 mL/min (>60); Est Glom Filt Rate - Afr Amer 54 mL/min (>60); Glucose 147 mg/dL (74-106); Potassium 4.1 mmol/L (3.5-5.1); Sodium Level 140 mmol/L (136-145); Thyroid Stim Hormone (TSH) 3.43 uIU/mL (0.358-3.74)
[2020-01-29 08:40] LABS: BNP,B-Type NATRIURETIC PEPTIDE 227.9 pg/mL (0-100)
== END ==
PROVIDERS: PCP Family Medicine Geriatric Medicine; Referring Provider Physician Assistant Medical; Visit Provider Physician Assistant Medical
DX: I48.0 Paroxysmal atrial fibrillation (principal); R53.83 Other fatigue
CPT/HCPCS: 36415; 80048; 83880; 84443; 85025

== ENCOUNTER → 2020-02-09 14:01 | Outpatient (CLI) | payer MEDICARE, OTHER, SELFPAY ==
[2020-02-09 13:16] VITALS: BMI 39.5
[2020-02-09 15:20] LABS: Anion Gap 4 (5-15); BUN 20 mg/dL (7-18); BUN/Creat Ratio 14.9 RATIO (10-20); Calcium,Total 9.1 mg/dL (8.5-10.1); Chloride 108 mmol/L (98-107); Creatinine, Serum 1.34 mg/dL (0.55-1.02); EST Glomerular Filtration Rate 40 mL/min (>60); Est Glom Filt Rate - Afr Amer 49 mL/min (>60); Glucose 119 mg/dL (74-106); Potassium 3.9 mmol/L (3.5-5.1); Sodium Level 144 mmol/L (136-145)
== END ==
PROVIDERS: PCP Family Medicine Geriatric Medicine; Referring Provider Physician Assistant Medical; Visit Provider Physician Assistant Medical
DX: I10 Essential (primary) hypertension (principal); I48.0 Paroxysmal atrial fibrillation
CPT/HCPCS: 36415; 80048

== ENCOUNTER → 2020-02-24 15:09 | Outpatient (CLI) | payer MEDICARE, OTHER, SELFPAY ==
[2020-02-09 13:16] VITALS: BMI 39.5
[2020-02-24 16:28] LABS: Absolute Lymphocyte Count 2.38 X10^3/uL (0.83-4.51); Absolute Neutrophil Count 8.8 X10^3/uL (2.0-7.7); Basophil# 0.08 X10^3/uL; Basophil% 0.6 % (0-1); Eosinophil# 0.31 X10^3/uL; Eosinophils% 2.5 % (0-5); Hematocrit 41.5 % (37-47); Hemoglobin 12.7 g/dL (12.0-15.0); Lymphocyte # 2.38 X10^3/ul (4.0); Mean Corp Hgb Conc 30.6 g/dL (32-36); Mean Corpuscular Hgb 24.8 pg (27.0-32.0); Mean Corpuscular Volume 81.1 fL (81-99); Mean Platelet Vol. 11.2 fl (6.2-12.0); Monocyte# 0.86 X10^3/uL; Monocyte% 6.9 % (0-10); NRBC Flagged by Analyzer 0 % (0-5); Neutrophil # 8.81 X10^3/uL (2.7-7.7); Neutrophil % 70.4 % (47-70); Platelet Count 384 K/mm3 (150-450); RBC Distribution Width CV 17.3 % (11.6-14.6); RBC Distribution Width SD 51.1 fl (35.1-43.9); Red Blood Count 5.12 M/mm3 (4.2-5.4); White Blood Count 12.5 K/mm3 (4.4-11.0)
[2020-02-24 17:13] LABS: Protein, Urine (Random) 112.6 mg/dL (<11.9); Protein:Creat Ratio 475 mg/g CRE (0-200)
[2020-02-24 17:16] LABS: Vitamin D,25 Hydroxy 22.6 ng/mL
[2020-02-24 17:18] LABS: ALB/GLOB Ratio 0.8 RATIO (0.9-2.4); AST(SGOT) 14 U/L (15-37); Alanine Aminotransfer ALT/SGPT 21 U/L (13-56); Albumin, Serum 3.2 g/dL (3.2-5.0); Alkaline Phosphatase 125 U/L (45-117); Anion Gap 5 (5-15); BUN 17 mg/dL (7-18); BUN/Creat Ratio 13.7 RATIO (10-20); Calcium,Total 9.3 mg/dL (8.5-10.1); Chloride 105 mmol/L (98-107); Creatinine, Serum 1.24 mg/dL (0.55-1.02); EST Glomerular Filtration Rate 44 mL/min (>60); Est Glom Filt Rate - Afr Amer 53 mL/min (>60); Glucose 143 mg/dL (74-106); Phosphorus 3.1 mg/dL (2.5-4.9); Potassium 3.7 mmol/L (3.5-5.1); Protein, Total 7.2 g/dL (6.4-8.2); Sodium Level 140 mmol/L (136-145); Thyroid Stim Hormone (TSH) 3.06 uIU/mL (0.358-3.74)
== END ==
PROVIDERS: PCP Family Medicine Geriatric Medicine; Visit Provider Internal Medicine Nephrology
DX: I12.9 Hypertensive chronic kidney disease with stage 1 through stage 4 chronic kidney disease, or unspecified chronic kidney disease (principal); E11.22 Type 2 diabetes mellitus with diabetic chronic kidney disease; N18.30 Chronic kidney disease, stage 3 unspecified; E55.9 Vitamin D deficiency, unspecified
CPT/HCPCS: 36415; 80053; 82306; 82570; 84100; 84156; 84443; 85025

== ENCOUNTER → 2020-05-18 16:23 | Outpatient (CLI) | payer MEDICARE, OTHER, SELFPAY ==
[2020-05-18 14:59] VITALS: BMI 39.2
[2020-05-18 16:54] LABS: Absolute Lymphocyte Count 2.44 X10^3/uL (0.83-4.51); Absolute Neutrophil Count 9.4 X10^3/uL (2.0-7.7); Basophil# 0.07 X10^3/uL; Basophil% 0.5 % (0-1); Hematocrit 40.9 % (37-47); Hemoglobin 12.2 g/dL (12.0-15.0); Lymphocyte # 2.44 X10^3/ul (4.0); Lymphocyte % 18.4 % (19-41); Mean Corp Hgb Conc 29.8 g/dL (32-36); Mean Corpuscular Hgb 26.1 pg (27.0-32.0); Mean Corpuscular Volume 87.6 fL (81-99); Mean Platelet Vol. 10.6 fl (6.2-12.0); Monocyte# 0.87 X10^3/uL; Monocyte% 6.6 % (0-10); NRBC Flagged by Analyzer 0 % (0-5); Neutrophil # 9.39 X10^3/uL (2.7-7.7); Platelet Count 370 K/mm3 (150-450); RBC Distribution Width CV 16.8 % (11.6-14.6); RBC Distribution Width SD 52.9 fl (35.1-43.9); Red Blood Count 4.67 M/mm3 (4.2-5.4); White Blood Count 13.2 K/mm3 (4.4-11.0)
[2020-05-18 17:18] LABS: BNP,B-Type NATRIURETIC PEPTIDE 357.7 pg/mL (0-100)
[2020-05-18 17:29] LABS: Anion Gap 7 (5-15); BUN 20 mg/dL (7-18); BUN/Creat Ratio 13.8 RATIO (10-20); Calcium,Total 8.7 mg/dL (8.5-10.1); Chloride 105 mmol/L (98-107); Creatinine, Serum 1.45 mg/dL (0.55-1.02); EST Glomerular Filtration Rate 37 mL/min (>60); Est Glom Filt Rate - Afr Amer 45 mL/min (>60); Glucose 106 mg/dL (74-106); Magnesium 2.2 mg/dL (1.6-2.6); Potassium 3.6 mmol/L (3.5-5.1); Sodium Level 143 mmol/L (136-145); Thyroid Stim Hormone (TSH) 7.77 uIU/mL (0.358-3.74)
== END ==
PROVIDERS: PCP Family Medicine Geriatric Medicine; Referring Provider Physician Assistant Medical; Visit Provider Physician Assistant Medical
DX: I48.11 Longstanding persistent atrial fibrillation (principal); I50.32 Chronic diastolic (congestive) heart failure; I11.0 Hypertensive heart disease with heart failure
CPT/HCPCS: 36415; 80048; 83735; 83880; 84443; 85025

== ENCOUNTER → 2020-05-25 15:53 | Outpatient (CLI) | payer MEDICARE, OTHER, SELFPAY ==
[2020-05-18 14:59] VITALS: BMI 39.2
--- NOTE | 2020-05-25 17:13 | RAD_ITS ---
STUDY: X-RAY CHEST REASON FOR EXAM: Female, 80 years old. SOB TECHNIQUE: Single AP portable view of the chest. COMPARISON: 03/21/2019 FINDINGS: Mild horizontal streaky density in the left lung base system with subsegmental atelectasis. Hyperexpansion of the lungs with flattened diaphragms, with COPD. No focal infiltrates. No effusion. There is no demonstrated pleural abnormality. Normal size heart. Normal mediastinum and binh. Normal visualized pulmonary arteries. Normal visualized aortic arch and descending thoracic aorta. There are diffuse degenerative changes of the visualized thoracic spine. Normal visualized ribs, clavicles, and shoulders. There is no demonstrated abnormality of the visualized soft tissue structures of the upper abdomen. RAD/Chest PA and Lateral IMPRESSION: There are findings consistent with COPD. Probable mild atelectasis in the left lung base. Otherwise no evidence of acute chest disease. Electronically Signed: Sascha Keller MD at 23:42 EST , Service support ,
[2020-05-25 17:29] LABS: Absolute Lymphocyte Count 1.65 X10^3/uL (0.83-4.51); Absolute Neutrophil Count 8.1 X10^3/uL (2.0-7.7); Basophil# 0.07 X10^3/uL; Basophil% 0.6 % (0-1); Eosinophil# 0.33 X10^3/uL; Hematocrit 39.7 % (37-47); Hemoglobin 11.6 g/dL (12.0-15.0); Lymphocyte # 1.65 X10^3/ul (4.0); Lymphocyte % 15.2 % (19-41); Mean Corp Hgb Conc 29.2 g/dL (32-36); Mean Corpuscular Hgb 25.7 pg (27.0-32.0); Mean Corpuscular Volume 87.8 fL (81-99); Mean Platelet Vol. 11.1 fl (6.2-12.0); Monocyte# 0.68 X10^3/uL; Monocyte% 6.3 % (0-10); NRBC Flagged by Analyzer 0 % (0-5); Neutrophil # 8.06 X10^3/uL (2.7-7.7); Neutrophil % 74.4 % (47-70); Platelet Count 434 K/mm3 (150-450); RBC Distribution Width SD 51.8 fl (35.1-43.9); Red Blood Count 4.52 M/mm3 (4.2-5.4); White Blood Count 10.8 K/mm3 (4.4-11.0)
[2020-05-25 18:01] LABS: ALB/GLOB Ratio 0.7 RATIO (0.9-2.4); AST(SGOT) 17 U/L (15-37); Alanine Aminotransfer ALT/SGPT 22 U/L (13-56); Albumin, Serum 2.9 g/dL (3.2-5.0); Alkaline Phosphatase 117 U/L (45-117); Anion Gap 6 (5-15); BUN 19 mg/dL (7-18); BUN/Creat Ratio 13.1 RATIO (10-20); Calcium,Total 8.8 mg/dL (8.5-10.1); Chloride 104 mmol/L (98-107); Creatinine, Serum 1.45 mg/dL (0.55-1.02); EST Glomerular Filtration Rate 37 mL/min (>60); Est Glom Filt Rate - Afr Amer 45 mL/min (>60); Globulin 4.2 g/dL (2.2-4.2); Glucose 168 mg/dL (74-106); Potassium 3.7 mmol/L (3.5-5.1); Protein, Total 7.1 g/dL (6.4-8.2); Sodium Level 142 mmol/L (136-145); Thyroid Stim Hormone (TSH) 6.22 uIU/mL (0.358-3.74)
== END ==
PROVIDERS: PCP Family Medicine Geriatric Medicine; Referring Provider Family Medicine Geriatric Medicine; Visit Provider Family Medicine Geriatric Medicine
DX: E11.9 Type 2 diabetes mellitus without complications (principal); E55.9 Vitamin D deficiency, unspecified; I10 Essential (primary) hypertension; R06.02 Shortness of breath
CPT/HCPCS: 36415; 71046; 80053; 82306; 84443; 85025

== ENCOUNTER → 2020-07-07 15:08 | Outpatient (CLI) | payer MEDICARE, OTHER, SELFPAY ==
[2020-05-26 15:57] VITALS: BMI 39.7
[2020-07-07 14:08] VITALS: BMI 39.2
[2020-07-07 16:21] LABS: Thyroid Stim Hormone (TSH) 3.02 uIU/mL (0.358-3.74)
== END ==
PROVIDERS: PCP Family Medicine Geriatric Medicine; Referring Provider Family Medicine Geriatric Medicine; Visit Provider Family Medicine Geriatric Medicine
DX: E03.9 Hypothyroidism, unspecified (principal)
CPT/HCPCS: 36415; 84443

== ENCOUNTER → 2020-08-30 15:59 | Outpatient (CLI) | payer MEDICARE, OTHER, SELFPAY ==
[2020-07-07 14:08] VITALS: BMI 39.2
[2020-08-30 16:48] LABS: Absolute Lymphocyte Count 2.32 X10^3/uL (0.83-4.51); Absolute Neutrophil Count 8.2 X10^3/uL (2.0-7.7); Basophil# 0.06 X10^3/uL; Basophil% 0.5 % (0-1); Eosinophil# 0.27 X10^3/uL; Eosinophils% 2.3 % (0-5); Hematocrit 40.3 % (37-47); Hemoglobin 12.4 g/dL (12.0-15.0); Lymphocyte # 2.32 X10^3/ul (0.83-4.51); Lymphocyte % 19.9 % (19-41); Mean Corp Hgb Conc 30.8 g/dL (32-36); Mean Corpuscular Hgb 26.8 pg (27.0-32.0); Mean Platelet Vol. 11.7 fl (6.2-12.0); Monocyte# 0.77 X10^3/uL; Monocyte% 6.6 % (0-10); NRBC Flagged by Analyzer 0 % (0-5); Neutrophil # 8.19 X10^3/uL (2.7-7.7); Neutrophil % 70.3 % (47-70); Platelet Count 322 K/mm3 (150-450); RBC Distribution Width CV 16.1 % (11.6-14.6); RBC Distribution Width SD 51.3 fl (35.1-43.9); Red Blood Count 4.63 M/mm3 (4.2-5.4); White Blood Count 11.7 K/mm3 (4.4-11.0)
[2020-08-30 17:04] LABS: Vitamin D,25 Hydroxy 31.6 ng/mL
[2020-08-30 17:10] LABS: ALB/GLOB Ratio 0.8 RATIO (0.9-2.4); AST(SGOT) 14 U/L (15-37); Alanine Aminotransfer ALT/SGPT 17 U/L (13-56); Alkaline Phosphatase 115 U/L (45-117); Anion Gap 6 (5-15); BUN 22 mg/dL (7-18); BUN/Creat Ratio 17.2 RATIO (10-20); Calcium,Total 8.5 mg/dL (8.5-10.1); Chloride 104 mmol/L (98-107); Creatinine, Serum 1.28 mg/dL (0.55-1.02); EST Glomerular Filtration Rate 43 mL/min (>60); Est Glom Filt Rate - Afr Amer 51 mL/min (>60); Globulin 3.7 g/dL (2.2-4.2); Glucose 157 mg/dL (74-106); Potassium 3.9 mmol/L (3.5-5.1); Protein, Total 6.7 g/dL (6.4-8.2); Sodium Level 140 mmol/L (136-145); Thyroid Stim Hormone (TSH) 2.39 uIU/mL (0.358-3.74)
== END ==
PROVIDERS: PCP Family Medicine Geriatric Medicine; Visit Provider Family Medicine Geriatric Medicine
DX: E11.9 Type 2 diabetes mellitus without complications (principal); E55.9 Vitamin D deficiency, unspecified; I10 Essential (primary) hypertension
CPT/HCPCS: 36415; 80053; 82306; 84443; 85025

== ENCOUNTER → 2020-11-02 09:55 | Outpatient (CLI) | payer MEDICARE, OTHER, SELFPAY ==
[2020-02-09 13:16] VITALS: BMI 39.5
[2020-11-02 12:02] LABS: Hematocrit 39.5 % (37-47); Hemoglobin 12.4 g/dL (12.0-15.0); Mean Corp Hgb Conc 31.4 g/dL (32-36); Mean Corpuscular Hgb 27.9 pg (27.0-32.0); Mean Platelet Vol. 11.5 fl (6.2-12.0); Platelet Count 311 K/mm3 (150-450); RBC Distribution Width SD 48.4 fl (35.1-43.9); Red Blood Count 4.44 M/mm3 (4.2-5.4); White Blood Count 9.8 K/mm3 (4.4-11.0)
[2020-11-02 12:21] LABS: Albumin, Serum 3.2 g/dL (3.2-5.0); BUN 21 mg/dL (7-18); BUN/Creat Ratio 18.8 RATIO (10-20); Calcium,Total 8.8 mg/dL (8.5-10.1); Chloride 106 mmol/L (98-107); Creatinine, Serum 1.12 mg/dL (0.55-1.02); EST Glomerular Filtration Rate 50 mL/min (>60); Est Glom Filt Rate - Afr Amer 60 mL/min (>60); Glucose 155 mg/dL (74-106); Phosphorus 3.1 mg/dL (2.5-4.9); Potassium 3.7 mmol/L (3.5-5.1); Sodium Level 143 mmol/L (136-145)
== END ==
PROVIDERS: PCP Family Medicine Geriatric Medicine; Referring Provider Internal Medicine Nephrology; Visit Provider Internal Medicine Nephrology
DX: N18.32 Chronic kidney disease, stage 3b (principal); E55.9 Vitamin D deficiency, unspecified
CPT/HCPCS: 36415; 80069; 82306; 85027

== ENCOUNTER → 2020-11-28 16:12 | Outpatient (CLI) | payer MEDICARE, OTHER, SELFPAY ==
[2020-11-28 16:45] LABS: Absolute Lymphocyte Count 2.26 X10^3/uL (0.83-4.51); Basophil# 0.06 X10^3/uL; Basophil% 0.5 % (0-1); Eosinophil# 0.27 X10^3/uL; Eosinophils% 2.4 % (0-5); Hematocrit 41.7 % (37-47); Hemoglobin 12.9 g/dL (12.0-15.0); Lymphocyte # 2.26 X10^3/ul (0.83-4.51); Lymphocyte % 19.7 % (19-41); Mean Corp Hgb Conc 30.9 g/dL (32-36); Mean Corpuscular Hgb 27.6 pg (27.0-32.0); Mean Corpuscular Volume 89.1 fL (81-99); Mean Platelet Vol. 10.8 fl (6.2-12.0); Monocyte# 0.81 X10^3/uL; Monocyte% 7.1 % (0-10); NRBC Flagged by Analyzer 0 % (0-5); Neutrophil # 7.97 X10^3/uL (2.7-7.7); Neutrophil % 69.6 % (47-70); Platelet Count 320 K/mm3 (150-450); RBC Distribution Width CV 14.5 % (11.6-14.6); RBC Distribution Width SD 46.3 fl (35.1-43.9); Red Blood Count 4.68 M/mm3 (4.2-5.4); White Blood Count 11.5 K/mm3 (4.4-11.0)
[2020-11-28 17:29] LABS: Vitamin D,25 Hydroxy 33.4 ng/mL
[2020-11-28 17:36] LABS: ALB/GLOB Ratio 0.8 RATIO (0.9-2.4); AST(SGOT) 15 U/L (15-37); Alanine Aminotransfer ALT/SGPT 20 U/L (13-56); Albumin, Serum 3.1 g/dL (3.2-5.0); Alkaline Phosphatase 109 U/L (45-117); Anion Gap 7 (5-15); BUN 22 mg/dL (7-18); BUN/Creat Ratio 17.7 RATIO (10-20); Calcium,Total 9.1 mg/dL (8.5-10.1); Chloride 103 mmol/L (98-107); Creatinine, Serum 1.24 mg/dL (0.55-1.02); EST Glomerular Filtration Rate 44 mL/min (>60); Est Glom Filt Rate - Afr Amer 53 mL/min (>60); Globulin 3.9 g/dL (2.2-4.2); Glucose 151 mg/dL (74-106); Potassium 4.3 mmol/L (3.5-5.1); Sodium Level 141 mmol/L (136-145); Thyroid Stim Hormone (TSH) 1.02 uIU/mL (0.358-3.74)
== END ==
PROVIDERS: PCP Family Medicine Geriatric Medicine; Visit Provider Family Medicine Geriatric Medicine
DX: E11.9 Type 2 diabetes mellitus without complications (principal); I10 Essential (primary) hypertension; E55.9 Vitamin D deficiency, unspecified
CPT/HCPCS: 36415; 80053; 82306; 84443; 85025

== ENCOUNTER → 2020-12-06 10:52 | Outpatient (CLI) | payer MEDICARE, OTHER, SELFPAY ==
--- NOTE | 2020-12-06 | LES_PTH ---
PATIENT: TONJA SÁNCHEZ LOC: [facility] U#:[id number] AGE/SX: 85/F ROOM: RE12/06/[address]: Dr. Alexy Douglas MD : 1940 BED: DIS: SPEC #: [id number] RECD: 12/06/20 11:48 STATUS: RICHARD KAMRON #: [id number] HAMLET: 12/06/20 00:[address]: Alexy Douglas Chi DEPT: SURGICAL PATHOLOGY RECD BY: Amira Gutierrez Tissues: A - Skin of leg, NOS B - Skin of leg, NOS Procedures: Surgery Specimen Level IV HEADER OPERATION: Biopsy PRE-OP DIAGNOSIS: L98.9 TISSUE SUBMITTED: A ? Left salazar, B ? Left salazar MICROSCOPIC DIAGNOSIS A. Left leg (salazar) lesion, shave biopsy: Basal cell carcinoma, extending up to deep margin of the specimen. B. Left leg (salazar) lesion, shave biopsy: Basal cell carcinoma with focal ulceration, extending up to deep margin of the specimen. Solar elastosis. MOISES:lonnie 12/07/2020 COMMENT Case has been reviewed in consultation with Dr. Brock who concurs with the above diagnosis. IDC:AM MICROSCOPIC DESCRIPTION Slides are reviewed. GROSS DESCRIPTION A - Received in fixative is one container labeled with the patient's name and designated left leg. The specimen consists of a piece of gleason-white skin measuring 1.1 x 1 cm and up to 0.3 cm in thickness. A nodular lesion is noted occupying almost the entire specimen. The specimen is inked, serially sectioned and submitted entirely in one cassette. B - Received in fixative is one container labeled with the patient's name and designated left leg. The specimen consists of a piece of gleason-white skin measuring 1.5 x 1.5 x 0.3 cm. An ulcerated lesion is present occupying almost the entire specimen. The specimen is inked, serially sectioned and submitted entirely in one cassette. / MOISES:lonnie 12/06/20 TC:0 CPT: 55350 x2
== END ==
PROVIDERS: PCP Family Medicine Geriatric Medicine; Visit Provider Family Medicine Geriatric Medicine
DX: C44.91 Basal cell carcinoma of skin, unspecified (principal); L57.8 Other skin changes due to chronic exposure to nonionizing radiation
CPT/HCPCS: 88305

== ENCOUNTER → 2020-12-27 11:44 | Outpatient (CLI) | payer MEDICARE, OTHER, SELFPAY | PROVIDERS: PCP Family Medicine Geriatric Medicine; Referring Provider Family Medicine Geriatric Medicine; Visit Provider Family Medicine Geriatric Medicine | DX: R68.83 Chills (without fever) (principal) | CPT/HCPCS: 87635; 87804; 87807; C9803; U0005; U0003 ==

== ENCOUNTER → 2020-12-28 13:30 | Outpatient (CLI) | payer MEDICARE, OTHER, SELFPAY ==
--- NOTE | 2020-12-28 | IMM_PTH ---
PATIENT: TONJA SÁNCHEZ LOC: [facility] U#:[id number] AGE/SX: 85/F ROOM: RE12/28/[address]: Dr. Bebeto Rodriguez MD : 1940 BED: DIS: SPEC #: [id number] RECD: 01/02/21 14:13 STATUS: RICHARD RELiborio #: [id number] HAMLET: 12/28/20 00:[address]: Bebeto Rodriguez DEPT: IMMUNOHISTOCHEMISTRY RECD BY: Amira Gutierrez ENTERED: 01/02/21 14:15 SP TYPE: IMMUNO OTHR DR: Dr. Alexy Douglas MD Tissues: Skin of back, NOS Procedures: BCL-2 (add) CD10 (add) CK14 (add) CK5-6 (add) Vimentin (add) Pankeratin (initial) P40 (add) S-100 (add) PHYSICIAN & INSTITUTION [place] [id number] SPECIMEN INFORMATION: Tissue Source: Back lesion Clinical Info: Back lesion Specimen Number: [id number] #3 CPT code: 70955, 06678 x7 METHODOLOGY: Deparaffinized sections of prefer/formalin-fixed tissue or PAP/DQ stained slides are incubated with monoclonal/polyclonal antibodies/oligonucleotide probes. Localization is made via biotin free immunoperoxidase method. Appropriate controls are performed and reacted as expected. Results on target cell population are indicated in the following table: RESULTS: ANTIBODY / CLONE RESULT Block 3 AE1-3 (AE1/AE3/PCK26) positive, focal CD10 (56C6) positive BCL-2 (bcl-2/100/D5) positive, dim Vimentin (V9) negative S-100 (4C4.9) negative CK5-6 (D5 & 1684) positive CK14 (LL002) positive P40 (BC28) positive These tests were developed and their performance characteristics determined by [facility]. They may not have been cleared or approved by the U.S. Food and Drug Administration. The FDA has determined that such clearance or approval is not necessary. The above immunohistochemical/dualISH markers are ordered and reviewed by the Pathologist. INTERPRETATION: Skin lesion of back, excisional biopsy: Basal cell carcinoma. AM:lonnie 01/03/2021
--- NOTE | 2020-12-28 13:30 | LES_PTH ---
PATIENT: TONJA SÁNCHEZ LOC: [facility] U#:[id number] AGE/SX: 85/F ROOM: RE12/28/[address]: Dr. Bebeto Rodriguez MD : 1940 BED: DIS: SPEC #: [id number] RECD: 12/28/20 15:54 STATUS: RICHARD JOHNSONLiborio #: [id number] HAMLET: 12/28/20 13:[address]: Bebeto Rodriguez DEPT: SURGICAL PATHOLOGY RECD BY: Ana Williamson ENTERED: 12/29/20 09:02 SP TYPE: Lesion OTHR DR: Dr. Alexy Douglas MD Tissues: Skin of back, NOS Procedures: Surgery Specimen Level IV HEADER OPERATION: Excision back lesion PRE-OP DIAGNOSIS: Skin lesion TISSUE SUBMITTED: Back tissue MICROSCOPIC DIAGNOSIS Skin lesion of back, excisional biopsy: Basal cell carcinoma. See comment. AM:lonnie 01/02/2021 COMMENT The lesion appears to have been completely excised in the planes examined. Immunohistochemistry ([id number]) supports the above diagnosis. Case has been reviewed in consultation with Dr. Mcpherson who concurs with the above diagnosis. IDC:MOISES MICROSCOPIC DESCRIPTION Slides are reviewed. GROSS DESCRIPTION Received in fixative is one container labeled with the patient's name and designated back lesion. The specimen consists of a piece of gleason-white skin with underlying tissue measuring 5.5 x 2.7 cm and up to 1.5 cm in thickness. There is a raised, irregular, ulcerated lesion on the surface measuring 2 x 1.5 cm. The specimen is inked, serially sectioned and submitted entirely in 13 cassettes as follows: 1 & 2 - uninvolved tissue, 3-8 - lesion with adjacent tissue, 9-13 - uninvolved tissue. / MOISES:lonnie 12/30/20 TC:0 CPT: 41500
== END ==
PROVIDERS: PCP Family Medicine Geriatric Medicine; Referring Provider Surgery; Visit Provider Surgery
DX: L98.9 Disorder of the skin and subcutaneous tissue, unspecified (principal)
CPT/HCPCS: 88305; 88341; 88342

== ENCOUNTER → 2021-01-11 15:31 | Outpatient (CLI) | payer MEDICARE, OTHER, SELFPAY ==
[2021-01-11 17:19] LABS: Absolute Lymphocyte Count 2.17 X10^3/uL (0.83-4.51); Absolute Neutrophil Count 9.8 X10^3/uL (2.0-7.7); Basophil# 0.05 X10^3/uL; Basophil% 0.4 % (0-1); Eosinophil# 0.29 X10^3/uL; Eosinophils% 2.2 % (0-5); Hematocrit 40.8 % (37-47); Hemoglobin 12.6 g/dL (12.0-15.0); Lymphocyte # 2.17 X10^3/ul (0.83-4.51); Lymphocyte % 16.5 % (19-41); Mean Corp Hgb Conc 30.9 g/dL (32-36); Mean Corpuscular Hgb 28.1 pg (27.0-32.0); Mean Corpuscular Volume 91.1 fL (81-99); Mean Platelet Vol. 12.1 fl (6.2-12.0); Monocyte# 0.82 X10^3/uL; Monocyte% 6.2 % (0-10); NRBC Flagged by Analyzer 0 % (0-5); Neutrophil # 9.79 X10^3/uL (2.7-7.7); Neutrophil % 74.2 % (47-70); Platelet Count 378 K/mm3 (150-450); RBC Distribution Width CV 15.2 % (11.6-14.6); RBC Distribution Width SD 50.2 fl (35.1-43.9); Red Blood Count 4.48 M/mm3 (4.2-5.4); White Blood Count 13.2 K/mm3 (4.4-11.0)
[2021-01-11 17:33] LABS: Vitamin D,25 Hydroxy 27.7 ng/mL
[2021-01-11 17:48] LABS: ALB/GLOB Ratio 0.7 RATIO (0.9-2.4); AST(SGOT) 13 U/L (15-37); Alanine Aminotransfer ALT/SGPT 23 U/L (13-56); Albumin, Serum 2.8 g/dL (3.2-5.0); Alkaline Phosphatase 107 U/L (45-117); Anion Gap 5 (5-15); BUN 20 mg/dL (7-18); BUN/Creat Ratio 17.9 RATIO (10-20); Calcium,Total 8.7 mg/dL (8.5-10.1); Chloride 103 mmol/L (98-107); Creatinine, Serum 1.12 mg/dL (0.55-1.02); EST Glomerular Filtration Rate 50 mL/min (>60); Est Glom Filt Rate - Afr Amer 60 mL/min (>60); Globulin 3.9 g/dL (2.2-4.2); Glucose 110 mg/dL (74-106); Potassium 4.2 mmol/L (3.5-5.1); Protein, Total 6.7 g/dL (6.4-8.2); Sodium Level 138 mmol/L (136-145); Thyroid Stim Hormone (TSH) 4.39 uIU/mL (0.358-3.74)
== END ==
PROVIDERS: PCP Family Medicine Geriatric Medicine; Visit Provider Family Medicine Geriatric Medicine
DX: E11.9 Type 2 diabetes mellitus without complications (principal); E55.9 Vitamin D deficiency, unspecified; I10 Essential (primary) hypertension
CPT/HCPCS: 36415; 80053; 82306; 84443; 85025

== ENCOUNTER → 2021-01-19 10:59 | Outpatient (CLI) | payer MEDICARE, OTHER, SELFPAY ==
--- NOTE | 2021-01-18 13:00 | LES_PTH ---
PATIENT: TONJA SÁNCHEZ LOC: [facility] U#:[id number] AGE/SX: 85/F ROOM: RE01/19/[address]: Dr. Bebeto Rodriguez MD : 1940 BED: DIS: SPEC #: [id number] RECD: 01/19/21 07:23 STATUS: RICHARD KAMRON #: [id number] HAMLET: 01/18/21 13:[address]: Bebeto Rodriguez DEPT: SURGICAL PATHOLOGY RECD BY: Ana Williamson ENTERED: 01/19/21 12:08 SP TYPE: Lesion OTHR DR: Dr. Alexy Douglas MD Tissues: Skin of leg, NOS Procedures: Surgery Specimen Level IV HEADER OPERATION: Excision left lower leg lesion PRE-OP DIAGNOSIS: Skin lesion left leg TISSUE SUBMITTED: Left leg tissue MICROSCOPIC DIAGNOSIS Skin lesion of leg, excisional biopsy: Actinic keratosis. Solar elastosis. AM:lonnie 01/23/2021 MICROSCOPIC DESCRIPTION Slides are reviewed. GROSS DESCRIPTION Received in fixative is one container labeled with the patient's name and designated left leg tissue. The specimen consists of a gleason-white skin ellipse measuring 4.5 x 1.5 cm and up to 1 cm in thickness. A gleason, flat lesion is noted in the center measuring 1.2 x 1.2 cm. The specimen is inked, serially sectioned and submitted entirely in four cassettes. Cassette 1 contains the tip of skin ellipse. Sections will be submitted after additional fixation. / MOISES:lonnie 01/19/21 TC:5 CPT: 53120
== END ==
PROVIDERS: PCP Family Medicine Geriatric Medicine; Visit Provider Surgery
DX: L57.0 Actinic keratosis (principal); L57.8 Other skin changes due to chronic exposure to nonionizing radiation; W89.9XXA Exposure to unspecified man-made visible and ultraviolet light, initial encounter; Y99.9 Unspecified external cause status
CPT/HCPCS: 88305

== ENCOUNTER 2021-05-17 15:44 | Outpatient (CLI) | payer MEDICARE, OTHER, SELFPAY ==
--- NOTE | 2021-05-17 | LES_PTH ---
PATIENT: [facility]ON[facility]NCHEZ [facility] U[facility][id number] AGE/SX: 81/F ROOM: RE05/17/[address]: Dr. Bebeto Rodriguez MD : 1940 BED: DIS: 05/17/2021 SPEC #: [id number] RECD: 05/17/21 15:34 STATUS: RICHARD RELiborio #: [id number] HAMLET: 05/17/21 00:[address]: Bebeto Rodriguez DEPT: SURGICAL PATHOLOGY RECD BY: Mina Reardon ENTERED: 05/18/21 11:53 SP TYPE: Lesion OTHR DR: Dr. Alexy Douglas MD Tissues: Skin of scalp, NOS Procedures: Surgery Specimen Level IV HEADER OPERATION: Excision scalp lesion PRE-OP DIAGNOSIS: Neoplasm scalp TISSUE SUBMITTED: Scalp tissue MICROSCOPIC DIAGNOSIS Skin lesion of scalp, excisional biopsy: Basal cell carcinoma, nodular ulcerated, completely excised. Actinic change and solar elastosis. AM:rg 05/19/2021 COMMENT Case has been reviewed in consultation with Dr. Mcpherson who concurs with the above diagnosis. IDC:MOISES MICROSCOPIC DESCRIPTION Slides are reviewed. GROSS DESCRIPTION Received in fixative is one container labeled with the patient's name and designated scalp. The specimen consists of a gleason-white skin ellipse measuring 3.5 x 1.7 cm and up to 0.6 cm in thickness. The skin surface shows a raised gleason ulcerated lesion measuring 1.5 x 1 cm. The specimen is inked, serially sectioned and submitted entirely in four cassettes. Cassette 1 contains the tips of the skin ellipse and 3 & 4 contains the lesion. / MOISES:lonnie 05/18/2021 TC:0 CPT: 49532
== END 2021-05-17 23:59 | disposition home or self-care (01) ==
LOC: LABSPEC 15:46
PROVIDERS: PCP Family Medicine Geriatric Medicine; Visit Provider Surgery
DX: L98.9 Disorder of the skin and subcutaneous tissue, unspecified (principal)
CPT/HCPCS: 88305

== ENCOUNTER → 2021-07-12 | Outpatient (CLI) | payer MEDICARE, OTHER, SELFPAY ==
[2021-07-12 17:24] LABS: Absolute Lymphocyte Count 2.86 X10^3/uL (0.83-4.51); Absolute Neutrophil Count 9.1 X10^3/uL (2.0-7.7); Basophil# 0.08 X10^3/uL; Basophil% 0.6 % (0-1); Eosinophil# 0.32 X10^3/uL; Eosinophils% 2.4 % (0-5); Hematocrit 40.5 % (37-47); Hemoglobin 12.9 g/dL (12.0-15.0); Lymphocyte # 2.86 X10^3/ul (0.83-4.51); Lymphocyte % 21.5 % (19-41); Mean Corp Hgb Conc 31.9 g/dL (32-36); Mean Corpuscular Hgb 28.4 pg (27.0-32.0); Monocyte# 0.86 X10^3/uL; Monocyte% 6.5 % (0-10); NRBC Flagged by Analyzer 0 % (0-5); Neutrophil # 9.11 X10^3/uL (2.7-7.7); Neutrophil % 68.4 % (47-70); Platelet Count 315 K/mm3 (150-450); RBC Distribution Width CV 14.4 % (11.6-14.6); RBC Distribution Width SD 46.7 fl (35.1-43.9); Red Blood Count 4.55 M/mm3 (4.2-5.4); White Blood Count 13.3 K/mm3 (4.4-11.0)
[2021-07-12 17:46] LABS: ALB/GLOB Ratio 0.9 RATIO (0.9-2.4); AST(SGOT) 15 U/L (15-37); Alanine Aminotransfer ALT/SGPT 20 U/L (13-56); Albumin, Serum 3.3 g/dL (3.2-5.0); Alkaline Phosphatase 97 U/L (45-117); Anion Gap 6 (5-15); BUN 20 mg/dL (7-18); BUN/Creat Ratio 14.6 RATIO (10-20); Calcium,Total 8.7 mg/dL (8.5-10.1); Chloride 102 mmol/L (98-107); Creatinine, Serum 1.37 mg/dL (0.55-1.02); EST Glomerular Filtration Rate 39 mL/min (>60); Est Glom Filt Rate - Afr Amer 47 mL/min (>60); Globulin 3.8 g/dL (2.2-4.2); Glucose 200 mg/dL (74-106); Protein, Total 7.1 g/dL (6.4-8.2); Sodium Level 137 mmol/L (136-145); Thyroid Stim Hormone (TSH) 3.17 uIU/mL (0.358-3.74)
[2021-07-12 19:17] LABS: Vitamin D,25 Hydroxy 61.9 ng/mL
== END | disposition home or self-care (01) ==
LOC: POLAB3 14:14
PROVIDERS: PCP Family Medicine Geriatric Medicine; Visit Provider Family Medicine Geriatric Medicine
DX: E11.9 Type 2 diabetes mellitus without complications (principal); E55.9 Vitamin D deficiency, unspecified; I10 Essential (primary) hypertension
CPT/HCPCS: 36415; 80053; 82306; 84443; 85025

== ENCOUNTER → 2021-09-06 | Outpatient (CLI) | payer MEDICARE, OTHER, SELFPAY ==
--- NOTE | 2021-09-06 09:20 | RAD_ITS ---
STUDY: X-RAY CHEST REASON FOR EXAM: Female, 81 years old. Dyspnea TECHNIQUE: PA and lateral views of the chest. COMPARISON: 05/25/2020 FINDINGS: The lungs are clear and expanded. Small left pleural effusion with some left lower lobe atelectasis. There is moderate cardiac enlargement. Normal mediastinum and binh. Normal visualized pulmonary arteries. Normal visualized aortic arch and descending thoracic aorta. Normal visualized thoracic spine. Normal visualized ribs, clavicles, and shoulders. There is no demonstrated abnormality of the visualized soft tissue structures of the upper abdomen. RAD/Chest PA and Lateral IMPRESSION: Small left pleural effusion with left lower lobe atelectasis. Electronically Signed: Miguel Patterson MD at 9:40 EDT ,
[2021-09-06 10:16] LABS: Absolute Lymphocyte Count 2.17 X10^3/uL (0.83-4.51); Absolute Neutrophil Count 8.9 X10^3/uL (2.0-7.7); Basophil# 0.07 X10^3/uL; Basophil% 0.6 % (0-1); Eosinophil# 0.27 X10^3/uL; Eosinophils% 2.2 % (0-5); Hematocrit 42.6 % (37-47); Hemoglobin 13.3 g/dL (12.0-15.0); Lymphocyte # 2.17 X10^3/ul (0.83-4.51); Lymphocyte % 17.6 % (19-41); Mean Corp Hgb Conc 31.2 g/dL (32-36); Mean Corpuscular Hgb 28.3 pg (27.0-32.0); Mean Corpuscular Volume 90.6 fL (81-99); Mean Platelet Vol. 11.3 fl (6.2-12.0); Monocyte# 0.83 X10^3/uL; Monocyte% 6.7 % (0-10); NRBC Flagged by Analyzer 0 % (0-5); Neutrophil # 8.88 X10^3/uL (2.7-7.7); Neutrophil % 71.8 % (47-70); Platelet Count 296 K/mm3 (150-450); RBC Distribution Width CV 14.3 % (11.6-14.6); RBC Distribution Width SD 47.4 fl (35.1-43.9); White Blood Count 12.4 K/mm3 (4.4-11.0)
[2021-09-06 10:34] LABS: Anion Gap 5 (5-15); BUN 24 mg/dL (7-18); BUN/Creat Ratio 16.8 RATIO (10-20); Calcium,Total 9.4 mg/dL (8.5-10.1); Chloride 106 mmol/L (98-107); Creatinine, Serum 1.43 mg/dL (0.55-1.02); EST Glomerular Filtration Rate 37 mL/min (>60); Est Glom Filt Rate - Afr Amer 45 mL/min (>60); Glucose 238 mg/dL (74-106); Potassium 3.8 mmol/L (3.5-5.1); Sodium Level 141 mmol/L (136-145)
== END | disposition home or self-care (01) ==
LOC: RAD 09:13
PROVIDERS: PCP Family Medicine Geriatric Medicine; Referring Provider Nurse Practitioner Gerontology; Visit Provider Nurse Practitioner Gerontology
DX: R06.00 Dyspnea, unspecified (principal)
CPT/HCPCS: 36415; 71046; 80048; 83880; 85025

== ENCOUNTER → 2021-10-02 | Outpatient (CLI) | payer MEDICARE, OTHER, SELFPAY ==
--- NOTE | 2021-10-02 07:52 | ECHOD_ITS ---
Reason For Study: AFIB, DYSPNEA Procedure This was a 2D Doppler, Color Flow transthoracic echocardiogram. Exam performed in department. Left Ventricle Normal LV size. Left ventricular systolic function is normal. The estimated ejection fraction is 60 %. Unable to assess diastolic dysfunction due to arrhythmia. No regional wall motion abnormalities noted. Right Ventricle Normal RV size. Normal systolic function. Atria The left atrium is moderately enlarged. The right atrium is mildly enlarged. Mitral Valve Normal mitral valve. Tricuspid Valve The tricuspid valve is not well visualized. Aortic Valve The aortic valve is not well visualized. Pulmonic Valve The pulmonic valve is not well visualized. Great Vessels Normal aortic root. The pulmonary artery is normal size. Normal inferior vena cava. Pericardium/Pleural No pericardial effusion. MMode/2D Measurements & Calculations LVIDd: 5.0 cm IVSd: 1.7 cm Ao root diam: 3.7 cm LVIDs: 3.7 cm LVPWd: 1.2 cm FS: 25.7 % LAV(MOD-bp): 131.5 ml LA A4 area: 30.5 cm2 LA dimension(2D): 5.6 cm LAV(MOD-bp) Indexed: 58.0 ml/m2 LAV(MOD-sp2): 126.2 ml LAV(MOD-sp4): 120.3 ml RA A4 area: 24.9 cm2 Doppler Measurements & Calculations MV E max zoe: 106.5 cm/sec Ao V2 max: 116.6 cm/sec LV V1 max: 84.6 cm/sec Ao max P.4 mmHg LV V1 max P.9 mmHg Ao V2 mean: 80.8 cm/sec LV V1 mean P.3 mmHg Ao mean P.9 mmHg LV V1 mean: 52.6 cm/sec Ao V2 VTI: 20.2 cm LV V1 VTI: 13.9 cm PA V2 max: 94.6 cm/sec TR max zoe: 306.4 cm/sec TR max P.6 mmHg ECHO/Echo Complete Interpretation Summary Normal LV size. Left ventricular systolic function is normal. The estimated ejection fraction is 60 %. Unable to assess diastolic dysfunction due to arrhythmia. The left atrium is moderately enlarged. The right atrium is mildly enlarged. Ordering Physician: Lovely Linda Referring Physician: Alexy Douglas Chi Performed By: Susan Thompson, JOSE, RVT
[2021-10-02 09:16] LABS: Anion Gap 4 (5-15); BUN 20 mg/dL (7-18); BUN/Creat Ratio 15.4 RATIO (10-20); Calcium,Total 9.1 mg/dL (8.5-10.1); Chloride 108 mmol/L (98-107); EST Glomerular Filtration Rate 42 mL/min (>60); Est Glom Filt Rate - Afr Amer 50 mL/min (>60); Glucose 204 mg/dL (74-106); Potassium 4.5 mmol/L (3.5-5.1); Sodium Level 142 mmol/L (136-145)
== END | disposition home or self-care (01) ==
PROVIDERS: PCP Family Medicine Geriatric Medicine; Referring Provider Nurse Practitioner Gerontology; Visit Provider Nurse Practitioner Gerontology
DX: I48.11 Longstanding persistent atrial fibrillation (principal); R06.00 Dyspnea, unspecified
CPT/HCPCS: 36415; 80048; 93306

== ENCOUNTER 2021-10-09 11:41 | Inpatient (IN) | payer MEDICARE, OTHER, SELFPAY ==
[2021-10-09] VITALS (23 sets, daily range): BP systolic 119–181; BP diastolic 68–130; PULSE 111–160; RESP 20–35; TEMP 36.3–37.3; O2SAT 91–98; BMI 39.6; BMI 38.1
--- NOTE | 2021-10-09 12:03 | EKG12_ITS ---
Test Reason : cp Blood Pressure : / mmHG Vent. Rate : 152 BPM Atrial Rate : 000 BPM P-R Int : 000 ms QRS Dur : 138 ms QT Int : 290 ms P-R-T Axes : 000 132 -31 degrees QTc Int : 461 ms Atrial fibrillation with rapid ventricular response Right bundle branch block T wave abnormality, consider inferior ischemia vs IVCD effect Abnormal ECG Confirmed by DELLA SELF, TAI ([id number]), restaurant expeditor PAUL GALAN ([id number]) on 10/10/2021 11:36:21 AM Referred By: Walter Confirmed By:TAI HULL MD
--- NOTE | 2021-10-09 12:03 | RAD_ITS ---
STUDY: X-RAY CHEST REASON FOR EXAM: Female, 81 years old. Chest pain TECHNIQUE: Single AP portable view of the chest. COMPARISON: Comparison is made with prior study dated the 2021. FINDINGS: EKG electrodes are seen. Small left pleural effusion with left basilar infiltrate. There is been progression as compared to prior study. Normal size heart. Normal mediastinum and binh. Normal visualized pulmonary arteries. There is atherosclerotic tortuosity of the aortic arch and descending thoracic aorta. There are diffuse degenerative changes of the visualized thoracic spine. Normal visualized ribs, clavicles, and shoulders. There is no demonstrated abnormality of the visualized soft tissue structures of the upper abdomen. RAD/Chest 1 View (Portable) IMPRESSION: Small left pleural effusion with left basilar infiltrate. There has been progression as compared to prior study. Electronically Signed: Huey Gomez MD at 12:58 EDT ,
[2021-10-09] MEDS: dilTIAZem 25 MG/5 ML Vial 15 MG IV BOLUS (12:09)
[2021-10-09] MEDS: 0.9% Normal Saline 1,000 ML 150 ML IV (12:14)
[2021-10-09 12:28] LABS: Absolute Lymphocyte Count 0.73 X10^3/uL (0.83-4.51); Absolute Neutrophil Count 17.7 X10^3/uL (2.0-7.7); Basophil# 0.03 X10^3/uL; Basophil% 0.2 % (0-1); Hematocrit 41.3 % (37-47); Hemoglobin 13.5 g/dL (12.0-15.0); Lymphocyte # 0.73 X10^3/ul (0.83-4.51); Lymphocyte % 3.7 % (19-41); Mean Corp Hgb Conc 32.7 g/dL (32-36); Mean Corpuscular Hgb 29.5 pg (27.0-32.0); Mean Corpuscular Volume 90.2 fL (81-99); Mean Platelet Vol. 11.3 fl (6.2-12.0); Monocyte# 1.15 X10^3/uL; Monocyte% 5.8 % (0-10); NRBC Flagged by Analyzer 0 % (0-5); Neutrophil # 17.71 X10^3/uL (2.7-7.7); Neutrophil % 89.3 % (47-70); Platelet Count 230 K/mm3 (150-450); RBC Distribution Width CV 14.6 % (11.6-14.6); RBC Distribution Width SD 48.1 fl (35.1-43.9); Red Blood Count 4.58 M/mm3 (4.2-5.4); White Blood Count 19.8 K/mm3 (4.4-11.0)
--- NOTE | 2021-10-09 12:36 | EDS_ITS ---
HPI History of Present Illness Chief Complaint: Chest Pain Informant: patient Narrative Narrative: Patient is an 81-year-old female with history of atrial fibrillation, chronic diastolic heart failure, CKD, hypertension and chronic anticoagulation on Eliquis presenting with chest discomfort and shortness of breath. Patient states she began having the symptoms about 2 days ago. She states she has been feeling miserable and this feels like her atrial fibrillation. She did have some nausea last night. She is had constant pressure in the center and just to the left in her chest. She states she actually felt worse yesterday but finally came in today. She states has not missed any doses of her Eliquis. She follows with Dr. Tesfaye. Denies any sick contacts. Has been sweating but states she just feels really hot. No other complaints at this time. Prior Similar Symptoms: Yes (atrial fibrillation ) [facility] Medical History Actinic keratosis BMI 39.0-39.9,adult Breast cancer Chronic diastolic (congestive) heart failure CKD (chronic kidney disease) stage 3, GFR 30-59 ml/min COPD (chronic obstructive pulmonary disease) Diastolic dysfunction Disc degeneration, lumbar DMII (diabetes mellitus, type 2) Erosion of bladder suspension mesh Essential (primary) hypertension Fatigue Hypersomnia Hypothyroidism Hypoxia Longstanding persistent atrial fibrillation Non-rheumatic tricuspid valve insufficiency Obesity Right hip pain Secondary pulmonary arterial hypertension Skin cancer Skin cancer, basal cell Skin lesion Stage 2 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 SHAKIRA (stress urinary incontinence, female) Tobacco dependence in remission UTI (urinary tract infection) Home Medications glimepiride 1 mg tablet 1 mg PO DAILY #30 tabs 03/22/19 [Rx Last Taken Unknown] insulin degludec 100 unit/mL (3 mL) subcutaneous pen 40 unit subcut DAILY 05/18/20 [History Last Taken Unknown] benazepril 40 mg tablet 40 mg PO DAILY #30 tabs 07/07/20 [Rx Last Taken Unknown] cholecalciferol (vitamin D3) 325 mcg (13,000 unit) capsule 325 mcg PO DAILY 06/14/21 [History Last Taken Unknown] furosemide 40 mg tablet (Lasix) 40 mg PO DAILY PRN water pill #60 tabs 06/14/21 [Rx Last Taken Unknown] levothyroxine 200 mcg tablet 225 mcg PO DAILY 06/14/21 [History Last Taken Unknown] potassium chloride 20 mEq tablet,extended release 20 meq PO DAILY 06/14/21 [History Last Taken Unknown] vibegron 75 mg tablet (Gemtesa) 75 mg PO DAILY 06/14/21 [History Last Taken Unknown] diltiazem HCl 240 mg capsule,extended release 24 hr 240 mg PO DAILY #90 caps 07/17/21 [Rx Last Taken Unknown] rosuvastatin 20 mg tablet 20 mg PO QHS cholesterol #30 tabs 08/04/21 [Rx Last Taken Unknown] metoprolol tartrate 100 mg tablet 100 mg PO DAILY #90 tabs 09/04/21 [Rx Last Taken Unknown] apixaban 2.5 mg tablet (Eliquis) 2.5 mg PO DAILY 10/09/21 [History Last Taken Unknown] Allergy/AdvReac Type Severity Reaction Status Date / Time Sulfa (Sulfonamide Allergy PEELING Verified 10/09/21 11:49 Antibiotics) RASH Family History Mother Colon cancer Cancer skin, bladder Daughter Cancer Thyroid Sister CAD (coronary artery disease) Surgical History History of cardioversion (03/20/19) History of excision of lesion History of hysterectomy History of left heart catheterization (05/31/14) History of partial mastectomy Hx of local excision of skin lesion Social History Smoking Status: Former smoker how long ago did patient quit smokin, 2p/day second hand exposure: Yes alcohol intake: current alcohol intake frequency: holidays/special occasions only substance use type: does not use ROS ROS ED Constitutional Constitutional ED: Reports sweats; Denies chills or fever(s) Eyes Eyes: Denies blurry vision or change in vision ENT ENT ED: Denies rhinorrhea or sore throat Cardiovascular Cardiovascular: Reports as per HPI, chest pain, palpitations and racing heart beat Respiratory/Chest Respiratory/Chest: Reports dyspnea and dyspnea on exertion; Denies cough Gastrointestinal Gastrointestinal: Reports nausea; Denies abdominal pain, diarrhea, melena or vomiting Genitourinary Genitourinary ED: Denies dysuria or hematuria Musculoskeletal Musculoskeletal: Denies arthralgias or myalgias Integumentary Denies rash Neurologic Neurologic: Reports weakness; Denies headache(s) Psychiatric Psychiatric: Denies anxiety Hematologic/Lymphatic Hematologic/Lymphatic: Reports easy bleeding and easy bruising EXAM Physical Exam Const Vital Signs: 10/09/21 11:42 10/09/21 11:51 10/09/21 12:15 Temperature 99.2 F H Temperature Source Oral Pulse Rate 160 H 139 H Respiratory Rate 35 H 30 H Respiratory Effort Short of Breath Blood Pressure 162/130 H 157/74 H Blood Pressure Mean 140 101 Pulse Ox 91 93 Oxygen Delivery Method Room Air Nasal Cannula Oxygen Flow Rate (L/min) 4 10/09/21 12:16 10/09/21 13:17 10/09/21 13:39 Temperature Temperature Source Pulse Rate 132 H 120 H Respiratory Rate 25 H 34 H Respiratory Effort Blood Pressure 140/86 H 144/90 H Blood Pressure Mean 104 108 Pulse Ox 93 93 95 Oxygen Delivery Method Nasal Cannula Nasal Cannula Nasal Cannula Oxygen Flow Rate (L/min) 4 4 4 10/09/21 14:12 10/09/21 14:14 Temperature 98.6 F Temperature Source Oral Pulse Rate 123 H 122 H Respiratory Rate 33 H 28 H Respiratory Effort Blood Pressure 143/94 H 143/94 H Blood Pressure Mean 110 110 Pulse Ox 95 94 Oxygen Delivery Method Nasal Cannula Nasal Cannula Oxygen Flow Rate (L/min) 4 4 Positive well nourished, well developed and obese Constitutional Narrative: Uncomfortable appearing General Appearance ED: well developed Nutritional Appearance: obese HEENT Reports moist mucous membranes normocephalic and atraumatic Eyes PERRL and EOMs intact bilaterally Neck supple and no JVD Chest Wall inspection of chest normal and palpation of chest normal Resp Resp Narrative: Mild tachypnea. Clear breath sounds throughout. No crackles appreciated. Cardio Rate: tachycardic and other Rhythm: abnormal rhythm irregularly irregular Peripheral Pulses: pulses 2+ throughout GI normal to inspection, nondistended, normoactive bowel sounds and soft to palpation Extremity normal to inspection Neuro oriented x3 and CN's II-XII intact bilaterally Motor Exam: general weakness Psych mental status grossly normal Skin no rashes or lesions noted Skin Narrative: Diaphoretic Heart Score History: Slightly/Non-Suspicious ECG: Nonspecific Repolarization Age: >/= 65 years Risk Factors: 1 or 2 Risk Factors Troponin: </= Normal Limit Score: 4 MDM MDM MDM Narrative Medical decision making narrative: Patient is evaluated for 2 days of chest discomfort and shortness of breath. Patient appears sweaty, uncomfortable, is tachycardic and tachypneic. She is hypertensive. EKG shows atrial fibrillation with rapid ventricular response. She has some T wave depressions which are likely rate related. Chest x-ray interpreted by myself as well as radiology shows left lower lobe infiltrate as well as pleural effusion. She has a leukocytosis of 19.8. She is given 15 mg IV Cardizem bolus with minor improvement of her heart rate and is rebolused with 20 mg and started on a Cardizem drip. Patient tolerated this well with gradual improvement of her heart rate to around 115 bpm. Patient states she is not missed any doses of her Eliquis number low suspicion is PE as the cause of her symptoms today. Patient has a chronically elevated creatinine at 1.58 which is not far from her baseline. She has mild hyperglycemia of 263 with a normal anion gap. Lactate is elevated at 2.5. High since he troponin initially is 36. BNP is above her baseline at 498.5. Clinically I suspect this is more of an infectious picture and her A. fib with RVR is more of a reaction to her infection versus the primary issue. Patient started on broad-spectrum antibiotics, Rocephin and azithromycin for community-acquired pneumonia. She is given gentle IV fluids of 150 cc an hour. Due to underlying history of diastolic heart failure and pleural effusion I do not want to fluid overload her. Patient does not meet criteria for septic shock if she does not have endorgan damage. She is requiring supplemental oxygen. She will be admitted to the PCU for further treatment of her pneumonia as well as her A. fib with RVR. Patient is agreeable to splenic care. Patient's daughter does call and tells is that she did have a urinary tract infection about 2 weeks ago and she did not complete the course of antibiotics because she did not like the way it made her feel. We will add on urine and urine culture with this new information. Lab Data Attestation: I reviewed the patient's lab results. Labs: Laboratory Results - last 24 hr 10/09/21 10/09/21 10/09/21 11:50 11:50 11:50 WBC 19.8 H RBC 4.58 Hgb 13.5 Hct 41.3 MCV 90.2 MCH 29.5 MCHC 32.7 RDW Std Deviation 48.1 H RDW Coeff of Sudha 14.6 Plt Count 230 MPV 11.3 Immature Gran % (Auto) 1.000 H Neut % (Auto) 89.3 H Lymph % (Auto) 3.7 L [place] % (Auto) 5.8 Eos % (Auto) 0.0 Baso % (Auto) 0.2 Absolute Neuts (auto) 17.7 H Absolute Lymphs (auto) 0.73 L Nucleated RBC % 0 Sodium 134 L Potassium 3.6 Chloride 101 Carbon Dioxide 25.0 Anion Gap 8 BUN 22 H Creatinine 1.58 H Estim Creat Clear Calc 27.69 Est GFR (MDRD) Af Amer 40 L Est GFR (MDRD) Non-Af 33 L BUN/Creatinine Ratio 13.9 Glucose 267 H Lactic Acid Calcium 9.1 Magnesium 1.9 Troponin I High Sens 36 B-Natriuretic Peptide 498.5 H TSH 3.69 10/09/21 11:50 WBC RBC Hgb Hct MCV MCH MCHC RDW Std Deviation RDW Coeff of Sudha Plt Count MPV Immature Gran % (Auto) Neut % (Auto) Lymph % (Auto) [place] % (Auto) Eos % (Auto) Baso % (Auto) Absolute Neuts (auto) Absolute Lymphs (auto) Nucleated RBC % Sodium Potassium Chloride Carbon Dioxide Anion Gap BUN Creatinine Estim Creat Clear Calc Est GFR (MDRD) Af Amer Est GFR (MDRD) Non-Af BUN/Creatinine Ratio Glucose Lactic Acid 2.5 H* Calcium Magnesium Troponin I High Sens B-Natriuretic Peptide TSH Radiography Chest X-Ray - ED: 1 View, Read by ED Physician, Read by Radiologist, Left Infiltrate and Left Effusion Diagnostic Testing: Clinical Impression(s) from Imaging Studies Chest X-Ray 10/09/21 12:03 IMPRESSION: Small left pleural effusion with left basilar infiltrate. There has been progression as compared to prior study. Electronically Signed: Huey Gomez MD at 12:58 EDT , Rhythm Strip Rhythm Strip: A-fib Rate: 152 Ectopy: None EKG Initial EKG: Attestation: I personally reviewed and interpreted this EKG as follows: Interpretation: Atrial Fibrillation Comments: Atrial fibrillation with rapid ventricular response at a rate of 152 Right bundle branch block Right axis deviation ST depressions in inferior and septal leads with no reciprocal changes Critical Care Time Critical Care Time: Yes Critical care time (excluding procedures): 30-74 minutes (40), Discussing w/Patient &/or Family/Seater Assembler, Arranging Admission or Transfer and Performing Direct Patient Care at Bedside Discharge Plan Triage Chief Complaint: Chest Pain ED Provider: Amanda Yan Dx/Rx/DC Orders Clinical Impression: Atrial fibrillation with RVR, CKD (chronic kidney disease) stage 3, GFR 30-59 ml/min, LLL pneumonia, Sepsis, Chronic anticoagulation, Chronic diastolic (congestive) heart failure Primary Care Provider: Alexy Douglas Chi Disposition Disposition: Acute Care [facility]
[2021-10-09 12:54] LABS: Anion Gap 8 (5-15); BUN 22 mg/dL (7-18); BUN/Creat Ratio 13.9 RATIO (10-20); Calcium,Total 9.1 mg/dL (8.5-10.1); Chloride 101 mmol/L (98-107); Creatinine, Serum 1.58 mg/dL (0.55-1.02); EST Glomerular Filtration Rate 33 mL/min (>60); Est Glom Filt Rate - Afr Amer 40 mL/min (>60); Estimated Creatinine Clearance 27.69 ml/min; Glucose 267 mg/dL (74-106); Magnesium 1.9 mg/dL (1.6-2.6); Potassium 3.6 mmol/L (3.5-5.1); Sodium Level 134 mmol/L (136-145); Thyroid Stim Hormone (TSH) 3.69 uIU/mL (0.358-3.74); Troponin-I HS (w/2H Reflex) 36 pg/mL (3.0-54.0)
[2021-10-09] MEDS: Acetaminophen 500 MG Tablet 1000 MG PO (13:05)
[2021-10-09] MEDS: dilTIAZem 25 MG/5 ML Vial 20 MG IV BOLUS (13:06)
[2021-10-09 13:10] LABS: BNP,B-Type NATRIURETIC PEPTIDE 498.5 pg/mL (0-100)
[2021-10-09 13:13] LABS: Lactic Acid 2.5 mmol/L (0.4-1.9)
[2021-10-09 14:23] LABS: Reflex Troponin-HS? (from REC) Y
--- NOTE | 2021-10-09 14:53 | ED.RN ---
attempted to straight cath pt twice, unsuccessful.
--- NOTE | 2021-10-09 15:10 | HP.PCM_ITS ---
Documented by User: Madiha Wolf NP-C 10/09/21 15:29 HPI - General General Date of Admission: 10/09/21 Date of Service: 10/09/21 Chief Complaint: Shortness of breath HPI Narrative TONJA SÁNCHEZ, is a 81 F who presents with shortness of breath and chest pain that is started about 2 days ago. Patient recently had a urinary tract infection for which she received antibiotics however she quit taking them when she started feeling better. Patient states that approximately 2 days ago she began having shortness of breath and feeling ill and then yesterday she began having chest pain through the left side of her chest and upper neck. Patient has a history of atrial fibrillation and was found to be in atrial fibrillation upon presentation to ER. Patient's x-ray positive for a left lower lobe pneumonia. Patient also has a history of COPD, CKD, hypertension, CHF. [facility] Medical History Actinic keratosis Atrial fibrillation BMI 39.0-39.9,adult Breast cancer Chronic diastolic (congestive) heart failure CKD (chronic kidney disease) stage 3, GFR 30-59 ml/min COPD (chronic obstructive pulmonary disease) Diastolic dysfunction Disc degeneration, lumbar DMII (diabetes mellitus, type 2) Erosion of bladder suspension mesh Essential (primary) hypertension Fatigue Former smoker Hypersomnia Hypertension Hypothyroidism Hypoxia Longstanding persistent atrial fibrillation Non-rheumatic tricuspid valve insufficiency Obesity Right hip pain Secondary pulmonary arterial hypertension Skin cancer Skin cancer, basal cell Skin lesion Stage 2 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 SHAKIRA (stress urinary incontinence, female) Tobacco dependence in remission UTI (urinary tract infection) Home Medications insulin degludec 100 unit/mL (3 mL) subcutaneous pen 40 unit subcut DAILY blood sugar 05/18/20 [History Last Taken 10/08/21] cholecalciferol (vitamin D3) 325 mcg (13,000 unit) capsule 325 mcg PO DAILY supplement 06/14/21 [History Last Taken 10/08/21] furosemide 40 mg tablet (Lasix) 40 mg PO DAILY PRN water pill #60 tabs 06/14/21 [Rx Last Taken 10/08/21] levothyroxine 200 mcg tablet 225 mcg PO DAILY thyroid 06/14/21 [History Last Taken 10/08/21] potassium chloride 20 mEq tablet,extended release 20 meq PO DAILY supplement 06/14/21 [History Last Taken 10/08/21] vibegron 75 mg tablet (Gemtesa) 75 mg PO DAILY . 06/14/21 [History Last Taken 10/08/21] rosuvastatin 20 mg tablet 20 mg PO QHS cholesterol #30 tabs 08/04/21 [Rx Last Taken 10/08/21] apixaban 2.5 mg tablet (Eliquis) 2.5 mg PO DAILY blood thinner 10/09/21 [History Last Taken 10/08/21] benazepril 40 mg tablet 40 mg PO DAILY blood pressure 10/09/21 [History Last Taken 10/08/21] diltiazem HCl 240 mg capsule,extended release 24 hr 240 mg PO BID heart 10/09/21 [History Last Taken 10/08/21] glimepiride 1 mg tablet 1 mg PO DAILY blood sugar 10/09/21 [History Last Taken 10/08/21] metoprolol tartrate 100 mg tablet 100 mg PO DAILY blood pressure 10/09/21 [History Last Taken 10/08/21] phenazopyridine 100 mg tablet 100 mg PO TID PRN PRN . 10/09/21 [History Last Taken Unknown] Allergy/AdvReac Type Severity Reaction Status Date / Time Sulfa (Sulfonamide Allergy PEELING Verified 10/09/21 11:49 Antibiotics) RASH Family History Mother Colon cancer Cancer skin, bladder Daughter Cancer Thyroid Sister CAD (coronary artery disease) Surgical History History of cardioversion (03/20/19) History of excision of lesion History of hysterectomy History of left heart catheterization (05/31/14) History of partial mastectomy Hx of local excision of skin lesion Social History Smoking Status: Former smoker how long ago did patient quit smokin, 2p/day second hand exposure: Yes alcohol intake: current alcohol intake frequency: holidays/special occasions on ly substance use type: does not use ROS Constitutional Constitutional: Reports chills, fatigue, malaise and weakness; Denies anorexia or change in weight Cardiovascular Cardiovascular: Reports arrhythmia on telemetry, dyspnea on exertion, edema, fatigue, irregular heart rhythm, palpitations and rapid heart rate; Denies chest pain Respiratory/Chest Respiratory/Chest: Reports cough, shortness of breath at rest, shortness of breath with exertion and wheezing Gastrointestinal Gastrointestinal: Denies abdominal pain, constipation, diarrhea, nausea or vomiting Genitourinary Genitourinary: Denies dysuria Musculoskeletal Musculoskeletal: Denies back pain, extremity pain, joint pain, joint stiffness or joint swelling Integumentary Integumentary: Denies dry skin Neurologic Neurologic: Denies abnormal speech, confusion or dizziness Psychiatric Psychiatric: Denies anxiety or depression Endocrine Endocrinology: Denies change in body appearance Hematologic/Lymphatic Hematologic/Lymphatic: Denies anemia Vital Signs Vital Signs Vital Signs: 10/09/21 11:42 10/09/21 11:51 10/09/21 12:15 Temperature 99.2 F H Temperature Source Oral Pulse Rate 160 H 139 H Respiratory Rate 35 H 30 H Respiratory Effort Short of Breath Blood Pressure 162/130 H 157/74 H Blood Pressure Mean 140 101 Pulse Ox 91 93 Oxygen Delivery Method Room Air Nasal Cannula Oxygen Flow Rate (L/min) 4 10/09/21 12:16 10/09/21 13:17 10/09/21 13:39 Temperature Temperature Source Pulse Rate 132 H 120 H Respiratory Rate 25 H 34 H Respiratory Effort Blood Pressure 140/86 H 144/90 H Blood Pressure Mean 104 108 Pulse Ox 93 93 95 Oxygen Delivery Method Nasal Cannula Nasal Cannula Nasal Cannula Oxygen Flow Rate (L/min) 4 4 4 10/09/21 14:12 10/09/21 14:14 10/09/21 14:59 Temperature 98.6 F 98.6 F Temperature Source Oral Oral Pulse Rate 123 H 122 H 111 H Respiratory Rate 33 H 28 H 33 H Respiratory Effort Blood Pressure 143/94 H 143/94 H 120/87 H Blood Pressure Mean 110 110 98 Pulse Ox 95 94 95 Oxygen Delivery Method Nasal Cannula Nasal Cannula Nasal Cannula Oxygen Flow Rate (L/min) 4 4 4 Weight Weight: 260 lb 5.855 oz Body Mass Index (BMI) 39.6 Physical Exam Const alert and oriented x3 General Appearance: cooperative HEENT normocephalic, head/scalp atraumatic and moist oral mucous membranes Eyes conjunctivae normal and no scleral icterus Neck no lymphadenopathy and supple General: trachea midline Resp Effort and Inspection: tachypneic and labored Auscultation: diminished lung sounds Cardio S1 normal heart sound, S2 normal heart sound and peripheral pulses 2+ throughout Rate: tachycardic Rhythm: abnormal rhythm irregularly irregular GI normal to inspection, nondistended, normoactive bowel sounds, soft to palpation and non-tender Extremity normal capillary refill and no calf tenderness General Extremity: edema bilateral lower extremity Details: moderate Skin Lesions: no lesions Rashes: no rashes Neuro no focal motor deficits and no sensory deficits noted Speech: speech normal Motor Exam: general weakness Psych thought process normal and cooperative Results Lab / Micro Data Result Diagrams: 10/09/21 11:50 10/09/21 11:50 Labs: Laboratory Results - last 24 hr 10/09/21 11:50: WBC 19.8 H, RBC 4.58, Hgb 13.5, Hct 41.3, MCV 90.2, MCH 29.5, MCHC 32.7, RDW Std Deviation 48.1 H, RDW Coeff of Sudha 14.6, Plt Count 230, MPV 11.3, Immature Gran % (Auto) 1.000 H, Neut % (Auto) 89.3 H, Lymph % (Auto) 3.7 L , [place] % (Auto) 5.8, Eos % (Auto) 0.0, Baso % (Auto) 0.2, Absolute Neuts (auto) 17.7 H, Absolute Lymphs (auto) 0.73 L, Nucleated RBC % 0 10/09/21 11:50: Sodium 134 L, Potassium 3.6, Chloride 101, Carbon Dioxide 25.0, Anion Gap 8, BUN 22 H, Creatinine 1.58 H, Estim Creat Clear Calc 27.69, Est GFR (MDRD) Af Amer 40 L, Est GFR (MDRD) Non-Af 33 L, BUN/Creatinine Ratio 13.9, Glucose 267 H, Calcium 9.1, Magnesium 1.9, Troponin I High Sens 36, TSH 3.69 10/09/21 11:50: B-Natriuretic Peptide 498.5 H 10/09/21 11:50: Lactic Acid 2.5 H* Micro: Microbiology 10/09/21 12:50 Nasal Secretion SARS-CoV-2 Antigen (Rapid) - Final Rhythm Strip Rhythm Strip: A-fib Rate: 152 Ectopy: None Radiology Impression Chest X-Ray 10/09/21 12:03 IMPRESSION: Small left pleural effusion with left basilar infiltrate. There has been progression as compared to prior study. Electronically Signed: Huey Gomez MD at 12:58 EDT , Assessment & Plan Assessment/Plan (1) HARDEN (dyspnea on exertion): (2) Atrial fibrillation with RVR: (3) LLL pneumonia: PLAN: Plan 1. Atrial fibrillation with RVR secondary to left lower lobe pneumonia -Admit to PCU -Sputum culture ordered -Cardiac diet -CBC and BMP daily -Continue Eliquis, metoprolol -Cardizem drip initiated in ER, will continue -IV ceftriaxone and azithromycin ordered -Patient received approximately 500 mL of IV fluids in the ER, will not continue due to patient's history of CHF 2. Congestive heart failure with preserved EF -Echocardiogram 10/02/2021 demonstrates EF 60% -Strict intake and output 3. Hypertension -Vital signs per protocol, currently stable -Hold p.o. BP meds while on Cardizem drip to avoid hypotension 4. Hyperlipidemia -Continue rosuvastatin 5. Chronic kidney disease stage III -Patient's creatinine slightly elevated above baseline of 1.3 -BMP daily 6. Diabetes mellitus type II -Hold p.o. medications -Long-acting insulin 20 units subcu nightly ordered -ACH S blood sugar checks with sliding scale insulin ordered 7. Hypothyroidism -Continue levothyroxine DVT prophylaxis-not indicated, chronically anticoagulated with Eliquis This patient was seen by FELICIA RomeoC under the supervision of Dr. Oneil 31 minutes spent in clinical coordination of patient's plan of care. Documented by User: Dr. Ephraim Oneil MD 10/09/21 19:39 HPI - General General Date of Admission: 10/09/21 [facility] Medical History Actinic keratosis Atrial fibrillation BMI 39.0-39.9,adult Breast cancer Chronic diastolic (congestive) heart failure CKD (chronic kidney disease) stage 3, GFR 30-59 ml/min COPD (chronic obstructive pulmonary disease) Diastolic dysfunction Disc degeneration, lumbar DMII (diabetes mellitus, type 2) Erosion of bladder suspension mesh Essential (primary) hypertension Fatigue Former smoker Hypersomnia Hypertension Hypothyroidism Hypoxia Longstanding persistent atrial fibrillation Non-rheumatic tricuspid valve insufficiency Obesity Right hip pain Secondary pulmonary arterial hypertension Skin cancer Skin cancer, basal cell Skin lesion Stage 2 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 SHAKIRA (stress urinary incontinence, female) Tobacco dependence in remission UTI (urinary tract infection) Home Medications insulin degludec 100 unit/mL (3 mL) subcutaneous pen 40 unit subcut DAILY blood sugar 05/18/20 [History Last Taken 10/08/21] cholecalciferol (vitamin D3) 325 mcg (13,000 unit) capsule 325 mcg PO DAILY supplement 06/14/21 [History Last Taken 10/08/21] furosemide 40 mg tablet (Lasix) 40 mg PO DAILY PRN water pill #60 tabs 06/14/21 [Rx Last Taken 10/08/21] levothyroxine 200 mcg tablet 225 mcg PO DAILY thyroid 06/14/21 [History Last Taken 10/08/21] potassium chloride 20 mEq tablet,extended release 20 meq PO DAILY supplement 0 06/14/21 [History Last Taken 10/08/21] vibegron 75 mg tablet (Gemtesa) 75 mg PO DAILY . 06/14/21 [History Last Taken 10/08/21] rosuvastatin 20 mg tablet 20 mg PO QHS cholesterol #30 tabs 08/04/21 [Rx Last Taken 10/08/21] apixaban 2.5 mg tablet (Eliquis) 2.5 mg PO DAILY blood thinner 10/09/21 [History Last Taken 10/08/21] benazepril 40 mg tablet 40 mg PO DAILY blood pressure 10/09/21 [History Last T aken 10/08/21] diltiazem HCl 240 mg capsule,extended release 24 hr 240 mg PO BID heart 10/09/21 [History Last Taken 10/08/21] glimepiride 1 mg tablet 1 mg PO DAILY blood sugar 10/09/21 [History Last Taken 10/08/21] metoprolol tartrate 100 mg tablet 100 mg PO DAILY blood pressure 10/09/21 [History Last Taken 10/08/21] phenazopyridine 100 mg tablet 100 mg PO TID PRN PRN . 10/09/21 [History Last Taken Unknown] Allergy/AdvReac Type Severity Reaction Status Date / Time Sulfa (Sulfonamide Allergy PEELING Verified 10/09/21 11:49 Antibiotics) RASH Family History Mother Colon cancer Cancer skin, bladder Daughter Cancer Thyroid Sister CAD (coronary artery disease) Surgical History History of cardioversion (03/20/19) History of excision of lesion History of hysterectomy History of left heart catheterization (05/31/14) History of partial mastectomy Hx of local excision of skin lesion Social History Smoking Status: Former smoker how long ago did patient quit smokin, 2p/day second hand exposure: Yes alcohol intake: current alcohol intake frequency: holidays/special occasions only substance use type: does not use Results Lab / Micro Data Result Diagrams: 10/09/21 11:50 10/09/21 11:50 Assessment & Plan Assessment/Plan (1) HARDEN (dyspnea on exertion): (2) Atrial fibrillation with RVR: (3) LLL pneumonia: Charges/Coding Addendum Addendum: Addendum: Dr. Oneil I personally examined the patient and reviewed the chart. I agree with the above. 81-year-old female presents to the hospital with shortness of breath and some chest pain. Troponin was unremarkable and the chest pain is completely resolved, it was started yesterday. However she has been feeling short of breath since Saturday. In the ER she was found to have a left lower lobe pn eumonia with possible pleural effusion. She was also found to be in A. fib with RVR despite being on 240 mg of Cardizem as well as 100 mg of metoprolol daily. Both of these medications will be restarted as well as being on a Cardizem drip. We will continue with antibiotics for her pneumonia as well as a sputum culture. We will continue with Rocephin and azithromycin, she also was recently diagnosed with a UTI however she states that since she started feeling better she stopped taking the antibiotics and a UA was obtained that did show 3+ urine bacteria so the Rocephin should cover this as well however we will send this off for urine culture as well. Lactic acid has resolved so given her history of diastolic heart failure will hold off on any IV fluids for right now other than the Cardizem drip. She has had a slight bump in her creatinine her baseline is around 1.3 and she is currently 1.58 so if this does continue to climb then we may need to restart some IV fluids. Clinical time spent in all aspects of patient care: 43 minutes Visit Charges Inpatient E&M: 65073 Init Hosp L3
[2021-10-09 15:37] LABS: Troponin-I HS 33 pg/mL (3.0-54.0)
[2021-10-09] MEDS: Insulin Lispro 100 UNIT/ML INSULN.PEN SC ×2 (16:28→22:03)
[2021-10-09 16:54] LABS: Reflex Lactate? Y
[2021-10-09 17:05] LABS: Bedside Glucose 284 mg/dL (74-106)
[2021-10-09 17:20] LABS: Lactic Acid 1.6 mmol/L (0.4-1.9)
[2021-10-09 18:25] LABS: Mucous, Urine 0 SEEN /hpf (<or=2+)
[2021-10-09 18:28] LABS: Color, Urine Yellow (Yellow); Glucose, Dipstick 100 mg/dl (Normal); Ketone-Dipstick 5 mg/dl (Negative); Leukocyte Esterase-Dipstick 25 /ul (Negative); Nitrite-Dipstick Positive (Negative); Occult Blood-Urine 25 /ul (Negative); Protein-Dipstick 500 mg/dl (Negative); Specific Gravity, Urine 1.025 (1.002-1.030); Urine Clarity Cloudy (Clear); Urine Urobilinogen 4 mg/dl (Normal)
[2021-10-09 18:46] LABS: Urine Bilirubin Dipstick 1 mg/dL (Negative)
[2021-10-09 18:49] LABS: Red Blood Cells-Urine 0-5 SEEN /hpf (0-5); Squamous Epithelial Cells - UA 0-5 SEEN /hpf (5-10); White Blood Cells 0-5 SEEN /hpf (0-5)
[2021-10-09 18:52] LABS: Bacteria 3+ /hpf (None Seen)
[2021-10-09 18:53] LABS: Coarse Granular Cast 25-50 SEEN /lpf (0-5 /lpf); Fine Granular Cast- Urine 10-25 SEEN /lpf (0-5); Hyaline Cast 5-10 SEEN /lpf (0-5)
[2021-10-09] MEDS: Insulin Glargine-YFGN 100 UNIT/ML Pen 20 UNIT SC (22:04)
[2021-10-09] MEDS: Atorvastatin Calcium 40 MG Tablet PO (22:06)
[2021-10-09] MEDS: MELATONIN 3 MG TABLET PO (22:12)
[2021-10-09] MEDS: Metoprolol Tartrate 100 MG Tablet PO (22:42)
[2021-10-09] MEDS: TITRATION PARAMETER CHANGE 1 EACH IV (22:52)
[2021-10-09 23:11] LABS: Bedside Glucose 299 mg/dL (74-106)
[2021-10-10] VITALS (30 sets, daily range): BP systolic 103–159; BP diastolic 48–110; PULSE 75–108; RESP 18–40; TEMP 36.3–37.1; O2SAT 92–97
[2021-10-10 05:41] LABS: Absolute Lymphocyte Count 0.96 X10^3/uL (0.83-4.51); Absolute Neutrophil Count 15.2 X10^3/uL (2.0-7.7); Basophil# 0.04 X10^3/uL; Basophil% 0.2 % (0-1); Hematocrit 38.1 % (37-47); Hemoglobin 12.2 g/dL (12.0-15.0); Lymphocyte # 0.96 X10^3/ul (0.83-4.51); Lymphocyte % 5.5 % (19-41); Mean Corpuscular Hgb 29.3 pg (27.0-32.0); Mean Corpuscular Volume 91.4 fL (81-99); Mean Platelet Vol. 10.9 fl (6.2-12.0); Monocyte# 1.01 X10^3/uL; Monocyte% 5.8 % (0-10); NRBC Flagged by Analyzer 0 % (0-5); Neutrophil # 15.23 X10^3/uL (2.7-7.7); Neutrophil % 87.9 % (47-70); Platelet Count 207 K/mm3 (150-450); RBC Distribution Width CV 14.8 % (11.6-14.6); RBC Distribution Width SD 49.6 fl (35.1-43.9); Red Blood Count 4.17 M/mm3 (4.2-5.4); White Blood Count 17.3 K/mm3 (4.4-11.0)
[2021-10-10 06:03] LABS: Anion Gap 6 (5-15); BUN 30 mg/dL (7-18); BUN/Creat Ratio 20.8 RATIO (10-20); Chloride 102 mmol/L (98-107); Creatinine, Serum 1.44 mg/dL (0.55-1.02); EST Glomerular Filtration Rate 37 mL/min (>60); Est Glom Filt Rate - Afr Amer 45 mL/min (>60); Estimated Creatinine Clearance 30.38 ml/min; Glucose 199 mg/dL (74-106); Potassium 3.6 mmol/L (3.5-5.1); Sodium Level 135 mmol/L (136-145)
[2021-10-10] MEDS: Insulin Lispro 100 UNIT/ML INSULN.PEN SC ×4 (06:28→21:35)
[2021-10-10 06:51] LABS: Bedside Glucose 191 mg/dL (74-106)
[2021-10-10] MEDS: Ceftriaxone 1 GM/50 ML BAG IV (09:13)
[2021-10-10] MEDS: Polyethylene Glycol 3350 17 GM PACKET PO (09:24)
[2021-10-10] MEDS: dilTIAZem CD 240 MG Capsule PO (09:24)
[2021-10-10] MEDS: APIXABAN 2.5 MG TABLET PO (09:24)
[2021-10-10] MEDS: Metoprolol Tartrate 100 MG Tablet PO ×2 (09:24)
--- NOTE | 2021-10-10 10:35 | PCM.PN.HOSP ---
Documented by User: WILDER Romeo 10/10/21 10:40 Subjective Subjective Patient seen and examined. Patient is lying in bed no distress noted. Patient currently on IV antibiotics and IV Cardizem, heart rate improved. Objective Data Objective Data Vital Signs: Vital Signs Temp Pulse Resp BP Pulse Ox O2 Del Method O2 Flow Rate 98.4 F 106 H 22 H 152/76 H 97 Nasal Cannula 3 10/10/21 09:00 10/10/21 10:00 10/10/21 10:00 10/10/21 10:00 10/10/21 09:00 10/10/21 10:00 10/10/21 10:00 Oxygen Flow Rate (L/min) 3 Oxygen Delivery Method Nasal Cannula Weight: 251 lb 1.704 oz Body Mass Index (BMI) 38.1 Intake & Output: Intake and Output for Last 24 Hours 10/08/21 10/09/21 10/10/21 23:59 23:59 23:59 Intake Total 1127.67 / 1142.67 215 / 215 Output Total 100 / 100 125 / 125 Balance 1027.67 / 1042.67 90 / 90 Lab / Micro Data Result Diagrams: 10/10/21 05:24 10/10/21 05:24 Labs: Laboratory Results - last 24 hr 10/09/21 11:50: WBC 19.8 H, RBC 4.58, Hgb 13.5, Hct 41.3, MCV 90.2, MCH 29.5, MCHC 32.7, RDW Std Deviation 48.1 H, RDW Coeff of Sudha 14.6, Plt Count 230, MPV 11.3, Immature Gran % (Auto) 1.000 H, Neut % (Auto) 89.3 H, Lymph % (Auto) 3.7 L, [place] % (Auto) 5.8, Eos % (Auto) 0.0, Baso % (Auto) 0.2, Absolute Neuts (auto) 17.7 H, Absolute Lymphs (auto) 0.73 L, Nucleated RBC % 0 10/09/21 11:50: Sodium 134 L, Potassium 3.6, Chloride 101, Carbon Dioxide 25.0, Anion Gap 8, BUN 22 H, Creatinine 1.58 H, Estim Creat Clear Calc 27.69, Est GFR (MDRD) Af Amer 40 L, Est GFR (MDRD) Non-Af 33 L, BUN/Creatinine Ratio 13.9, Glucose 267 H, Calcium 9.1, Magnesium 1.9, Troponin I High Sens 36, TSH 3.69 10/09/21 11:50: B-Natriuretic Peptide 498.5 H 10/09/21 11:50: Lactic Acid 2.5 H* 10/09/21 15:05: Troponin I High Sens 33 10/09/21 15:05: Lactic Acid 1.6 10/09/21 16:24: POC Glucose 284 H 10/09/21 17:45: Urine Color Yellow, Urine Clarity Cloudy, Urine pH 5.0, Ur Specific [place] 1.025, Urine Protein 500 H, Urine Glucose (UA) 100 H, Urine Ketones 5 H, Urine Occult Blood 25 H, Urine Nitrite Positive H, Urine Bilirubin 1 H, Urine Urobilinogen 4 H, Ur Leukocyte Esterase 25 H, Urine RBC 0-5 SEEN, Urine WBC 0-5 SEEN, Ur Squamous Epith Cells 0-5 SEEN, Urine Bacteria 3+, Hyaline Casts 5-10 SEEN, Fine Granular Casts 10-25 SEEN, Coarse Granular Casts 25-50 SEEN, Urine Mucus 0 SEEN 10/09/21 21:59: POC Glucose 299 H 10/10/21 05:24: WBC 17.3 H, RBC 4.17 L, Hgb 12.2, Hct 38.1, MCV 91.4, MCH 29.3, MCHC 32.0, RDW Std Deviation 49.6 H, RDW Coeff of Sudha 14.8 H, Plt Count 207, MPV 10.9, Immature Gran % (Auto) 0.600, Neut % (Auto) 87.9 H, Lymph % (Auto) 5.5 L, [place] % (Auto) 5.8, Eos % (Auto) 0.0, Baso % (Auto) 0.2, Absolute Neuts (auto) 15.2 H, Absolute Lymphs (auto) 0.96, Nucleated RBC % 0 10/10/21 05:24: Sodium 135 L, Potassium 3.6, Chloride 102, Carbon Dioxide 27.0, Anion Gap 6, BUN 30 H, Creatinine 1.44 H, Estim Creat Clear Calc 30.38, Est GFR (MDRD) Af Amer 45 L, Est GFR (MDRD) Non-Af 37 L, BUN/Creatinine Ratio 20.8 H, Glucose 199 H, Calcium 9.0 10/10/21 06:27: POC Glucose 191 H Micro: Microbiology 10/09/21 12:50 Nasal Secretion SARS-CoV-2 Antigen (Rapid) - Final Radiography Diagnostic Testing: Radiology Impression Chest X-Ray 10/09/21 12:03 IMPRESSION: Small left pleural effusion with left basilar infiltrate. There has been progression as compared to prior study. Electronically Signed: Huey Gomez MD at 12:58 EDT , Rhythm Strip Rhythm Strip: A-fib Rate: 152 Ectopy: None Physical Exam Const alert and oriented x3 General Appearance: cooperative HEENT normocephalic, head/scalp atraumatic and moist oral mucous membranes Eyes conjunctivae normal and no scleral icterus Neck no lymphadenopathy and supple General: trachea midline Resp Effort and Inspection: tachypneic and labored Auscultation: diminished lung sounds Cardio S1 normal heart sound, S2 normal heart sound and peripheral pulses 2+ throughout Rate: tachycardic Rhythm: abnormal rhythm irregularly irregular GI normal to inspection, nondistended, normoactive bowel sounds, soft to palpation and non-tender Extremity normal capillary refill and no calf tenderness General Extremity: edema bilateral lower extremity Details: moderate Skin Lesions: no lesions Rashes: no rashes Neuro no focal motor deficits and no sensory deficits noted Speech: speech normal Motor Exam: general weakness Psych thought process normal and cooperative Assessment & Plan Assessment/Plan (1) HARDEN (dyspnea on exertion): (2) Atrial fibrillation with RVR: (3) LLL pneumonia: PLAN: Plan 1. Atrial fibrillation with RVR secondary to left lower lobe pneumonia -Sputum culture pending -Cardiac diet -CBC and BMP daily -Continue Eliquis, metoprolol -Continue Cardizem drip, heart rate currently maintaining in the 100s -IV ceftriaxone and azithromycin ordered 2. Congestive heart failure with preserved EF -Echocardiogram 10/02/2021 demonstrates EF 60% -Strict intake and output 3. Hypertension -Vital signs per protocol, currently stable -Hold p.o. BP meds while on Cardizem drip to avoid hypotension 4. Hyperlipidemia -Continue rosuvastatin 5. Chronic kidney disease stage III -Creatinine improving with patient's baseline range -BMP daily 6. Diabetes mellitus type II -Hold p.o. medications -Long-acting insulin 20 units subcu nightly ordered -ACH S blood sugar checks with sliding scale insulin ordered 7. Hypothyroidism -Continue levothyroxine DVT prophylaxis-not indicated, chronically anticoagulated with Eliquis This patient was seen by WILDER Romeo under the supervision of Dr. Davies. Documented by User: Dr. Martin Davies MD 10/10/21 12:07 Objective Data Lab / Micro Data Result Diagrams: 10/10/21 05:24 10/10/21 05:24 Assessment & Plan Assessment/Plan (1) HARDEN (dyspnea on exertion): (2) Atrial fibrillation with RVR: (3) LLL pneumonia: Addt'l Comments This patient was seen in conjunction with WILDER Romeo .? I have independently interviewed and examined the patient and reviewed pertinent historical, laboratory, and other data.? Please refer to WILDER Romeo? note for details of this patient's presentation, findings, and recommendations.? I have reviewed? WILDER Romeo note and concur? with documented findings. In brief, patient is a an 81-year-old lady who presented with a 2-day history of progressive shortness of breath and chest discomfort.. Chest x-ray obtained on admission did not demonstrate Small left pleural effusion with left basilar infiltrate. Patient was also found to be in A. fib with RVR started on Cardizem drip admitted to a monitored bed for further management Physical Examination: GENERAL: cooperative but dyspneic at rest HEENT: Atraumatic; EYES; Anicteric, Normal Conjunctiva NECK; supple, normal thyroid, RESPIRATORY: Diminished to auscultation CARDIOVASCULAR:?Irregularly irregular tachycardic GI:? soft, normoactive bowel sounds, : No Renal angle tenderness; EXTREMITIES:? No edema, no clubbing, MUSCULOSKELETAL:? no muscle wasting NEURO:? Awake;? no lateralizing signs. SKIN:? No Rash PSYCH; Flat? affect ? Assessment:? 1.? Community-acquired pneumonia 2. Paroxysmal A. fib with RVR 3. Chronic congestive heart failure with preserved ejection fraction 4. Essential hypertension 5. CKD stage IIIb 6. Dyslipidemia 7. Hypothyroidism 8. Class II obesity with BMI of 30.2 9. History of breast cancer currently remission 9. COPD stage II per Gold criteria 10. DVT prophylaxis Recommendations: 1.? I have discussed the results of my overview and impressions with the patient 2.? Options for management were reviewed Total time spent by myself and the advanced practice practitioner evaluating patient, reviewing labs, subsequent management decisions, discussion with patient as well as other providers 45 minutes ( 25 of which was spent by myself) Charges/Coding Visit Charges Inpatient E&M: 96625 Subs Hosp L3
--- NOTE | 2021-10-10 11:13 | CASEMGMT ---
RN TORITO Face to Face with patient for initial transition planning/care coordination assessment. RN CM introduced self and role at [facility]. Patient lying in bed, alert and oriented. Patient willing to participate in assessment and is able to answer all questions appropriately. Care providers, pharmacy, and demographics verified. Patient wishes to discharge home but willing to go to SNF or have HHC at home if needed. CM will monitor patient's progress with therapy. Patient states she has no further needs or concerns at this time. CM to follow for discharge planning needs that may arise. PCP: Misael Specialists: Maxwell urologist; Mera alteration tailor Preferred Pharmacy: [facility] Insurance: [employer] Prescription Benefit: yes Living Will/HPOA: daughter, Jaquelin Kinney, HPOA LNOK: daughter, sister Living Arrangements: Patient lives alone in a 1 story home with no steps to enter. Patient states she is independent at home and does her own cooking and cleaning. Transportation: self, sister DME/HHC: Patient states she has grab bars and pulse ox at home. Patient states she has 2 hospital beds but does no use them. Patient denies previous HHC or SNF. Will monitor progress with therapy. Patient may benefit from HHC and walker at discharge if goes home. Disposition Plan: Patient wishes to discharge home with family support and follow-up plans in place. Maria Esther LARSON, RN, CM
[2021-10-10 12:15] LABS: Bedside Glucose 267 mg/dL (74-106)
[2021-10-10 17:06] LABS: Bedside Glucose 165 mg/dL (74-106)
[2021-10-10] MEDS: Atorvastatin Calcium 40 MG Tablet PO (21:36)
[2021-10-10] MEDS: Insulin Glargine-YFGN 100 UNIT/ML Pen 20 UNIT SC (21:36)
[2021-10-10 22:01] LABS: Bedside Glucose 205 mg/dL (74-106)
[2021-10-11] VITALS (34 sets, daily range): BP systolic 114–180; BP diastolic 60–120; PULSE 79–144; RESP 18–37; TEMP 36.4–36.8; O2SAT 8–95
[2021-10-11 06:56] LABS: Bedside Glucose 133 mg/dL (74-106)
[2021-10-11 09:02] LABS: Absolute Lymphocyte Count 0.59 X10^3/uL (0.83-4.51); Absolute Neutrophil Count 10.1 X10^3/uL (2.0-7.7); Basophil# 0.03 X10^3/uL; Basophil% 0.3 % (0-1); Eosinophil# 0.08 X10^3/uL; Eosinophils% 0.7 % (0-5); Hematocrit 37.6 % (37-47); Hemoglobin 12.1 g/dL (12.0-15.0); Lymphocyte # 0.59 X10^3/ul (0.83-4.51); Mean Corp Hgb Conc 32.2 g/dL (32-36); Mean Corpuscular Hgb 29.3 pg (27.0-32.0); Mean Platelet Vol. 10.6 fl (6.2-12.0); Monocyte# 0.91 X10^3/uL; Monocyte% 7.7 % (0-10); NRBC Flagged by Analyzer 0 % (0-5); Neutrophil # 10.11 X10^3/uL (2.7-7.7); Neutrophil % 85.7 % (47-70); POSITIVE DIFFERENTIAL YES; Platelet Count 251 K/mm3 (150-450); RBC Distribution Width CV 14.6 % (11.6-14.6); RBC Distribution Width SD 49.3 fl (35.1-43.9); Red Blood Count 4.13 M/mm3 (4.2-5.4); White Blood Count 11.8 K/mm3 (4.4-11.0)
[2021-10-11] MEDS: Polyethylene Glycol 3350 17 GM PACKET PO (09:02)
[2021-10-11] MEDS: dilTIAZem CD 240 MG Capsule PO ×2 (09:03→21:33)
[2021-10-11] MEDS: Ceftriaxone 1 GM/50 ML BAG IV (09:04)
[2021-10-11] MEDS: APIXABAN 2.5 MG TABLET PO (09:04)
[2021-10-11 09:07] LABS: Differential Indicated SCAN CRITERIA MET
[2021-10-11 09:18] LABS: ALB/GLOB Ratio 0.5 RATIO (0.9-2.4); AST(SGOT) 12 U/L (15-37); Alanine Aminotransfer ALT/SGPT 10 U/L (13-56); Albumin, Serum 2.2 g/dL (3.2-5.0); Alkaline Phosphatase 88 U/L (45-117); Anion Gap 4 (5-15); BUN 32 mg/dL (7-18); BUN/Creat Ratio 21.6 RATIO (10-20); Calcium,Total 9.4 mg/dL (8.5-10.1); Chloride 99 mmol/L (98-107); Creatinine, Serum 1.48 mg/dL (0.55-1.02); EST Glomerular Filtration Rate 36 mL/min (>60); Est Glom Filt Rate - Afr Amer 43 mL/min (>60); Estimated Creatinine Clearance 29.56 ml/min; Globulin 4.4 g/dL (2.2-4.2); Glucose 179 mg/dL (74-106); Potassium 3.5 mmol/L (3.5-5.1); Protein, Total 6.6 g/dL (6.4-8.2); Sodium Level 133 mmol/L (136-145)
--- NOTE | 2021-10-11 10:00 | NURSING ---
This RN called updated pt's daughter, Jaquelin.
--- NOTE | 2021-10-11 10:00 | PCM.PN.HOSP ---
Documented by User: WILDER Romeo 10/11/21 10:05 Subjective Subjective Patient seen and examined. Patient lying in bed no distress noted. Cardizem drip was discontinued yesterday, continue p.o. Cardizem. Objective Data Objective Data Vital Signs: Vital Signs Temp Pulse Resp BP Pulse Ox O2 Del Method O2 Flow Rate 97.6 F L 110 H 18 143/90 H 94 Nasal Cannula 3 10/11/21 09:02 10/11/21 09:02 10/11/21 09:02 10/11/21 09:02 10/11/21 09:02 10/11/21 09:02 10/11/21 09:02 FiO2 94 10/11/21 07:26 Oxygen Flow Rate (L/min) 3 Oxygen Delivery Method Nasal Cannula Weight: 251 lb 1.704 oz Body Mass Index (BMI) 38.1 Intake & Output: Intake and Output for Last 24 Hours 10/09/21 10/10/21 10/11/21 23:59 23:59 23:59 Intake Total 1127.67 / 1142.67 1090.00 / 1090.00 50 / 50 Output Total 100 / 100 325 / 325 Balance 1027.67 / 1042.67 765.00 / 765.00 50 / 50 Lab / Micro Data Result Diagrams: 10/11/21 08:52 10/11/21 08:52 Labs: Laboratory Results - last 24 hr 10/10/21 11:15: POC Glucose 267 H 10/10/21 16:44: POC Glucose 165 H 10/10/21 21:33: POC Glucose 205 H 10/11/21 06:32: POC Glucose 133 H 10/11/21 08:52: WBC 11.8 H, RBC 4.13 L, Hgb 12.1, Hct 37.6, MCV 91.0, MCH 29.3, MCHC 32.2, RDW Std Deviation 49.3 H, RDW Coeff of Sudha 14.6, Plt Count 251, MPV 10.6, Immature Gran % (Auto) 0.600, Neut % (Auto) 85.7 H, Lymph % (Auto) 5.0 L, Coffee % (Auto) 7.7, Eos % (Auto) 0.7, Baso % (Auto) 0.3, Absolute Neuts (auto) 10.1 H, Absolute Lymphs (auto) 0.59 L, Nucleated RBC % 0 10/11/21 08:52: Sodium 133 L, Potassium 3.5, Chloride 99, Carbon Dioxide 30.0, Anion Gap 4 L, BUN 32 H, Creatinine 1.48 H, Estim Creat Clear Calc 29.56, Est GFR (MDRD) Af Amer 43 L, Est GFR (MDRD) Non-Af 36 L, BUN/Creatinine Ratio 21.6 H, Glucose 179 H, Calcium 9.4, Total Bilirubin 0.50, AST 12 L, ALT 10 L, Alkaline Phosphatase 88, Total Protein 6.6, Albumin 2.2 L, Globulin 4.4 H, Albumin/Globulin Ratio 0.5 L Micro: Microbiology 10/09/21 17:45 Urine, Clean Catch Urine Culture - Final Mixed Gram Pos & Gram Neg Org 10/09/21 12:50 Nasal Secretion SARS-CoV-2 Antigen (Rapid) - Final Rhythm Strip Rhythm Strip: A-fib Rate: 152 Ectopy: None Physical Exam Const alert and oriented x3 General Appearance: cooperative HEENT normocephalic, head/scalp atraumatic and moist oral mucous membranes Eyes conjunctivae normal and no scleral icterus Neck no lymphadenopathy and supple General: trachea midline Resp Effort and Inspection: tachypneic and labored Auscultation: diminished lung sounds Cardio S1 normal heart sound, S2 normal heart sound and peripheral pulses 2+ throughout Rate: tachycardic Rhythm: abnormal rhythm irregularly irregular GI normal to inspection, nondistended, normoactive bowel sounds, soft to palpation and non-tender Extremity normal capillary refill and no calf tenderness General Extremity: edema bilateral lower extremity Details: moderate Skin Lesions: no lesions Rashes: no rashes Neuro no focal motor deficits and no sensory deficits noted Speech: speech normal Motor Exam: general weakness Psych thought process normal and cooperative Assessment & Plan Assessment/Plan (1) HARDEN (dyspnea on exertion): (2) Atrial fibrillation with RVR: (3) LLL pneumonia: PLAN: Plan 1. Atrial fibrillation with RVR secondary to left lower lobe pneumonia -Sputum culture pending -Cardiac diet -CBC and BMP daily -Continue Eliquis, metoprolol -Cardizem drip discontinued yesterday afternoon, continue p.o. Cardizem twice daily per patient's home regimen -IV ceftriaxone and azithromycin ordered 2. Congestive heart failure with preserved EF -Echocardiogram 10/02/2021 demonstrates EF 60% -Strict intake and output 3. Hypertension -Vital signs per protocol, currently stable -Benazepril restarted 4. Hyperlipidemia -Continue rosuvastatin 5. Chronic kidney disease stage III -Creatinine improving within patient's baseline range -BMP daily 6. Diabetes mellitus type II -Hold p.o. medications -Long-acting insulin 20 units subcu nightly ordered -ACH S blood sugar checks with sliding scale insulin ordered 7. Hypothyroidism -Continue levothyroxine DVT prophylaxis-not indicated, chronically anticoagulated with Eliquis This patient was seen by FELICIA RomeoC under the supervision of Dr. Busby. Documented by User: Dr. Raul Busby MD 10/11/21 19:28 Subjective Subjective Patient seen and examined. Patient lying in bed no distress noted. Cardizem drip was discontinued yesterday, continue p.o. Cardizem. Follow-up for A. fib with RVR, pneumonia. Patient still in A. fib, heart rate in 140s. Started on Cardizem drip again. Screening Technician consulted Objective Data Lab / Micro Data Result Diagrams: 10/11/21 08:52 10/11/21 08:52 Labs: Laboratory Results - last 24 hr 10/10/21 11:15: POC Glucose 267 H 10/10/21 16:44: POC Glucose 165 H 10/10/21 21:33: POC Glucose 205 H 10/11/21 06:32: POC Glucose 133 H 10/11/21 08:52: WBC 11.8 H, RBC 4.13 L, Hgb 12.1, Hct 37.6, MCV 91.0, MCH 29.3, MCHC 32.2, RDW Std Deviation 49.3 H, RDW Coeff of Sudha 14.6, Plt Count 251, MPV 10.6, Immature Gran % (Auto) 0.600, Neut % (Auto) 85.7 H, Lymph % (Auto) 5.0 L, Coffee % (Auto) 7.7, Eos % (Auto) 0.7, Baso % (Auto) 0.3, Absolute Neuts (auto) 10.1 H, Absolute Lymphs (auto) 0.59 L, Nucleated RBC % 0 10/11/21 08:52: Sodium 133 L, Potassium 3.5, Chloride 99, Carbon Dioxide 30.0, Anion Gap 4 L, BUN 32 H, Creatinine 1.48 H, Estim Creat Clear Calc 29.56, Est GFR (MDRD) Af Amer 43 L, Est GFR (MDRD) Non-Af 36 L, BUN/Creatinine Ratio 21.6 H, Glucose 179 H, Calcium 9.4, Total Bilirubin 0.50, AST 12 L, ALT 10 L, Alkaline Phosphatase 88, Total Protein 6.6, Albumin 2.2 L, Globulin 4.4 H, Albumin/Globulin Ratio 0.5 L Physical Exam Narrative Patient does not have chest pain but is still short of breath. Denies chest pressure or tightness. Physical exam General: Alert, Oriented x3, Cooperative HEENT: Atraumatic, PERRLA, EOMI, Normocephalic Oral: No Gingival or Mucosal Lesions/ Ulcerations Neck: Supple, No JVD, Negative Carotid Bruits Lungs: Air entry diminished in bilateral lung bases. No crepitation/rhonchi Cardiovascular: A. fib RVR, normal S1, Normal S2, No murmurs Abdomen: Bowel Sounds Present, Soft, Non Tender, Non-Distended : No renal angle tenderness. No suprapubic tenderness. Extremities: No edema, Capillary Refill Less than 3 Seconds Skin: No rashes, No breakdown Musculoskeletal: No Tenderness to Palpation of Joints or Extremities Neurological: Cranial nerves II-XII grossly intact, DTR 2+/4 and Symmetrical, Neuro grossly intact Psych/Mental Status: Flat affect Assessment & Plan Assessment/Plan (1) HARDEN (dyspnea on exertion): (2) Atrial fibrillation with RVR: (3) LLL pneumonia: PLAN: Plan 1. Atrial fibrillation with RVR secondary to left lower lobe pneumonia -Sputum culture pending -Cardiac diet -CBC and BMP daily -Continue Eliquis, metoprolol -Cardizem drip discontinued yesterday afternoon, continue p.o. Cardizem twice daily per patient's home regimen -IV ceftriaxone and azithromycin ordered 2. Congestive heart failure with preserved EF -Echocardiogram 10/02/2021 demonstrates EF 60% -Strict intake and output 3. Hypertension -Vital signs per protocol, currently stable -Benazepril restarted 4. Hyperlipidemia -Continue rosuvastatin 5. Chronic kidney disease stage III -Creatinine improving within patient's baseline range -BMP daily 6. Diabetes mellitus type II -Hold p.o. medications -Long-acting insulin 20 units subcu nightly ordered -ACH S blood sugar checks with sliding scale insulin ordered 7. Hypothyroidism -Continue levothyroxine DVT prophylaxis-not indicated, chronically anticoagulated with Eliquis This patient was seen by WILDER Romeo under the supervision of Dr. Busby. This patient was seen in conjunction with LEWIS Cleary. I have independently interviewed and examined the patient and reviewed pertinent history, examination findings, laboratory and plan of management. I have reviewed the note and agree with the documented findings with the few additional points. In brief, patient is admitted for shortness of breath and chest pain for 2 days. Patient had recent UTI for which she was started on antibiotic but she quit taking them. In addition was found to A. fib with RVR. 1. A. fib with RVR: Patient started on Cardizem drip. Continue oral metoprolol. 2. Chronic HFpEF: Patient has chronic dyspnea on exertion. Screening Technician started empirically on Lasix. Continue beta-triny. 3. Left lower lobe pneumonia: On IV antibiotic. Ceftriaxone and Zithromax. 4. Other comorbidities include diabetes mellitus type 2, hypertension, CKD stage IIIb, dyslipidemia, hypothyroidism, class II obesity BMI 30.2 PG per metered square, history of breast cancer in remission, COPD stage II 5. DVT prophylaxis: On chronic Eliquis I have discussed my assessment with LEWIS Cleary and orders have been reviewed. Charges/Coding Visit Charges Inpatient E&M: 85917 Subs Hosp L2
[2021-10-11] MEDS: 0.9% Saline Lock 10 ML Syringe IV ×2 (11:17→14:09)
[2021-10-11] MEDS: Ondansetron 4 MG/2 ML Vial IV (11:17)
[2021-10-11] MEDS: Insulin Lispro 100 UNIT/ML INSULN.PEN SC ×3 (11:17→21:33)
[2021-10-11 11:35] LABS: Bedside Glucose 296 mg/dL (74-106)
--- NOTE | 2021-10-11 13:26 | CON.PCM.CA_ITS ---
Assessment & Plan Assessment/Plan (1) Atrial fibrillation with RVR: PLAN: She does have atrial fibrillation with a rapid ventricular response rate. My recommendation at this time is to continue with intravenous diltiazem and also start her on the oral metoprolol. We will slowly try and wean her back to the oral agents. She will continue with anticoagulation. (2) HARDEN (dyspnea on exertion): PLAN: She does have some dyspnea on exertion which is likely secondary to diastolic heart failure. We would gently try and diurese her and see how she does. Certainly her uncontrolled ventricular response rate is contributing to the above as well. (3) Chronic diastolic (congestive) heart failure: PLAN: She does have evidence of chronic diastolic heart failure. She will remain on the beta-triny and diuretics. Thank you for allowing me to participate in the care of your patient. Please don't hesitate to call if any issues arise. HPI Consult Data Date of Consult: 10/11/21 HPI Narrative HPI Narrative: TONJA SÁNCHEZ, is a 81 F who presents for a follow-up cardiovascular visit. She has a history of hypertension, hyperlipidemia, paroxysmal atrial fibrillation status post DC cardioversion attempt in March 2019. As you know she has been intolerant of amiodarone and we had decided on rate control which she had been doing successfully. She recently was admitted to the hospital for possible pneumonia and was treated with intravenous antibiotics. She was in atrial fibrillation with a rapid ventricular response rate and was treated with intravenous diltiazem as well. As she was being tried to be weaned to oral her heart rate went up higher and therefore cardiology was called for further evaluation and management. An echocardiogram that was performed during this hospitalization demonstrated preserved left ventricular systolic function with no wall motion abnormalities and no significant valvular disturbances noted. COUNT INCLUDES THE [facility] Medical History Actinic keratosis Atrial fibrillation BMI 39.0-39.9,adult Breast cancer Chronic diastolic (congestive) heart failure CKD (chronic kidney disease) stage 3, GFR 30-59 ml/min COPD (chronic obstructive pulmonary disease) Diastolic dysfunction Disc degeneration, lumbar DMII (diabetes mellitus, type 2) Erosion of bladder suspension mesh Essential (primary) hypertension Fatigue Former smoker Hypersomnia Hypertension Hypothyroidism Hypoxia Longstanding persistent atrial fibrillation Non-rheumatic tricuspid valve insufficiency Obesity Right hip pain Secondary pulmonary arterial hypertension Skin cancer Skin cancer, basal cell Skin lesion Stage 2 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 SHAKIRA (stress urinary incontinence, female) Tobacco dependence in remission UTI (urinary tract infection) Home Medications insulin degludec 100 unit/mL (3 mL) subcutaneous pen 40 unit subcut DAILY blood sugar 05/18/20 [History Last Taken 10/08/21] cholecalciferol (vitamin D3) 325 mcg (13,000 unit) capsule 325 mcg PO DAILY supplement 06/14/21 [History Last Taken 10/08/21] furosemide 40 mg tablet (Lasix) 40 mg PO DAILY PRN water pill #60 tabs 06/14/21 [Rx Last Taken 10/08/21] levothyroxine 200 mcg tablet 225 mcg PO DAILY thyroid 06/14/21 [History Last Taken 10/08/21] potassium chloride 20 mEq tablet,extended release 20 meq PO DAILY supplement 06/14/21 [History Last Taken 10/08/21] vibegron 75 mg tablet (Gemtesa) 75 mg PO DAILY . 06/14/21 [History Last Taken 10/08/21] rosuvastatin 20 mg tablet 20 mg PO QHS cholesterol #30 tabs 08/04/21 [Rx Last Taken 10/08/21] apixaban 2.5 mg tablet (Eliquis) 2.5 mg PO DAILY blood thinner 10/09/21 [History Last Taken 10/08/21] benazepril 40 mg tablet 40 mg PO DAILY blood pressure 10/09/21 [History Last Taken 10/08/21] diltiazem HCl 240 mg capsule,extended release 24 hr 240 mg PO BID heart 10/09/21 [History Last Taken 10/08/21] glimepiride 1 mg tablet 1 mg PO DAILY blood sugar 10/09/21 [History Last Taken 10/08/21] metoprolol tartrate 100 mg tablet 100 mg PO DAILY blood pressure 10/09/21 [His tory Last Taken 10/08/21] phenazopyridine 100 mg tablet 100 mg PO TID PRN PRN . 10/09/21 [History Last Taken Unknown] Allergy/AdvReac Type Severity Reaction Status Date / Time Sulfa (Sulfonamide Allergy PEELING Verified 10/09/21 11:49 Antibiotics) RASH Family History Mother Colon cancer Cancer skin, bladder Daughter Cancer Thyroid Sister CAD (coronary artery disease) Surgical History History of cardioversion (03/20/19) History of excision of lesion History of hysterectomy History of left heart catheterization (05/31/14) History of partial mastectomy Hx of local excision of skin lesion Social History Smoking Status: Former smoker how long ago did patient quit smokin, 2p/day second hand exposure: Yes alcohol intake: current alcohol intake frequency: holidays/special occasions only substance use type: does not use ROS Constitutional Constitutional: Reports chills, fatigue, malaise and weakness; Denies anorexia or change in weight Cardiovascular Cardiovascular: Reports arrhythmia on telemetry, dyspnea on exertion, edema, fatigue, irregular heart rhythm, palpitations and rapid heart rate; Denies chest pain Respiratory/Chest Respiratory/Chest: Reports cough, shortness of breath at rest, shortness of breath with exertion and wheezing Gastrointestinal Gastrointestinal: Denies abdominal pain, constipation, diarrhea, nausea or vomiting Genitourinary Genitourinary: Denies dysuria Musculoskeletal Musculoskeletal: Denies back pain, extremity pain, joint pain, joint stiffness or joint swelling Integumentary Integumentary: Denies dry skin Neurologic Neurologic: Denies abnormal speech, confusion or dizziness Psychiatric Psychiatric: Denies anxiety or depression Endocrine Endocrinology: Denies change in body appearance Hematologic/Lymphatic Hematologic/Lymphatic: Denies anemia Physical Exam Const alert and oriented x3 General Appearance: cooperative HEENT normocephalic, head/scalp atraumatic and moist oral mucous membranes Eyes conjunctivae normal and no scleral icterus Neck no lymphadenopathy and supple General: trachea midline Resp Effort and Inspection: tachypneic and labored Auscultation: diminished lung sounds Cardio S1 normal heart sound, S2 normal heart sound and peripheral pulses 2+ throughout Rate: tachycardic Rhythm: abnormal rhythm irregularly irregular GI normal to inspection, nondistended, normoactive bowel sounds, soft to palpation and non-tender Extremity normal capillary refill and no calf tenderness General Extremity: edema bilateral lower extremity Details: moderate Skin Lesions: no lesions Rashes: no rashes Neuro no focal motor deficits and no sensory deficits noted Speech: speech normal Motor Exam: general weakness Psych thought process normal and cooperative Risk Stratification Risk Stratification Applicable: No Objective Data Vital Signs: Vital Signs Temp Pulse Resp BP Pulse Ox O2 Del Method O2 Flow Rate 97.6 F L 127 H 29 H 173/80 H 94 Nasal Cannula 4 10/11/21 09:02 10/11/21 13:15 10/11/21 13:15 10/11/21 13:15 10/11/21 13:15 10/11/21 13:15 10/11/21 13:15 FiO2 94 10/11/21 07:26 Oxygen Flow Rate (L/min) 4 Oxygen Delivery Method Nasal Cannula Weight: 251 lb 1.704 oz Body Mass Index (BMI) 38.1 Intake & Output: Intake and Output for Last 24 Hours 10/09/21 10/10/21 10/11/21 23:59 23:59 23:59 Intake Total 1127.67 / 1142.67 1090.00 / 1090.00 612.50 / 612.50 Output Total 100 / 100 325 / 325 200 / 200 Balance 1027.67 / 1042.67 765.00 / 765.00 412.50 / 412.50 Lab / Micro Data Result Diagrams: 10/11/21 08:52 10/11/21 08:52 Labs: Laboratory Results - last 24 hr 10/10/21 16:44: POC Glucose 165 H 10/10/21 21:33: POC Glucose 205 H 10/11/21 06:32: POC Glucose 133 H 10/11/21 08:52: WBC 11.8 H, RBC 4.13 L, Hgb 12.1, Hct 37.6, MCV 91.0, MCH 29.3, MCHC 32.2, RDW Std Deviation 49.3 H, RDW Coeff of Sudha 14.6, Plt Count 251, MPV 10.6, Immature Gran % (Auto) 0.600, Neut % (Auto) 85.7 H, Lymph % (Auto) 5.0 L, Osborne % (Auto) 7.7, Eos % (Auto) 0.7, Baso % (Auto) 0.3, Absolute Neuts (auto) 10.1 H, Absolute Lymphs (auto) 0.59 L, Nucleated RBC % 0 10/11/21 08:52: Sodium 133 L, Potassium 3.5, Chloride 99, Carbon Dioxide 30.0, Anion Gap 4 L, BUN 32 H, Creatinine 1.48 H, Estim Creat Clear Calc 29.56, Est GFR (MDRD) Af Amer 43 L, Est GFR (MDRD) Non-Af 36 L, BUN/Creatinine Ratio 21.6 H , Glucose 179 H, Calcium 9.4, Total Bilirubin 0.50, AST 12 L, ALT 10 L, Alkaline Phosphatase 88, Total Protein 6.6, Albumin 2.2 L, Globulin 4.4 H, Albumin/Globulin Ratio 0.5 L 10/11/21 11:14: POC Glucose 296 H Micro: Microbiology 10/09/21 17:45 Urine, Clean Catch Urine Culture - Final Mixed Gram Pos & Gram Neg Org Rhythm Strip Rhythm Strip: A-fib Rate: 152 Ectopy: None Cardiology Labs/Tests 10/11/21 08:52: WBC 11.8 H, RBC 4.13 L, Hgb 12.1, Hct 37.6, MCV 91.0, MCH 29.3, MCHC 32.2, Plt Count 251, MPV 10.6, Immature Gran % (Auto) 0.600, Neut % (Auto) 85.7 H, Lymph % (Auto) 5.0 L, Osborne % (Auto) 7.7, Eos % (Auto) 0.7, Baso % (Auto) 0.3, Absolute Neuts (auto) 10.1 H, Nucleated RBC % 0 10/11/21 08:52: Sodium 133 L, Potassium 3.5, Chloride 99, Carbon Dioxide 30.0, Anion Gap 4 L, BUN 32 H, Creatinine 1.48 H, Est GFR (MDRD) Af Amer 43 L, Est GFR (MDRD) Non-Af 36 L, BUN/Creatinine Ratio 21.6 H, Glucose 179 H, Calcium 9.4, Total Bilirubin 0.50 Rhythm: EKG: ECHO: Stress Test: Cardiac Cath: PCI: CT Surgery: Holter monitor: EPS: PPM: CXR: Chest CT Scan:
[2021-10-11] MEDS: dilTIAZem 25 MG/5 ML Vial IV BOLUS (14:09)
[2021-10-11 16:36] LABS: Bedside Glucose 179 mg/dL (74-106)
[2021-10-11] MEDS: Metoprolol Tartrate 100 MG Tablet PO (21:32)
[2021-10-11] MEDS: Atorvastatin Calcium 40 MG Tablet PO (21:33)
[2021-10-11] MEDS: Insulin Glargine-YFGN 100 UNIT/ML Pen 20 UNIT SC (21:33)
[2021-10-11 22:01] LABS: Bedside Glucose 227 mg/dL (74-106)
[2021-10-12] VITALS (26 sets, daily range): BP systolic 116–162; BP diastolic 63–123; PULSE 62–94; RESP 15–30; TEMP 36.3–36.6; O2SAT 90–98
[2021-10-12 05:43] LABS: Absolute Lymphocyte Count 0.81 X10^3/uL (0.83-4.51); Absolute Neutrophil Count 9.2 X10^3/uL (2.0-7.7); Basophil# 0.03 X10^3/uL; Basophil% 0.3 % (0-1); Eosinophil# 0.02 X10^3/uL; Eosinophils% 0.2 % (0-5); Hematocrit 36.1 % (37-47); Hemoglobin 11.3 g/dL (12.0-15.0); Lymphocyte # 0.81 X10^3/ul (0.83-4.51); Lymphocyte % 7.1 % (19-41); Mean Corp Hgb Conc 31.3 g/dL (32-36); Mean Corpuscular Hgb 28.5 pg (27.0-32.0); Mean Corpuscular Volume 91.2 fL (81-99); Mean Platelet Vol. 11.2 fl (6.2-12.0); Monocyte# 1.22 X10^3/uL; Monocyte% 10.7 % (0-10); NRBC Flagged by Analyzer 0 % (0-5); Platelet Count 283 K/mm3 (150-450); RBC Distribution Width CV 14.6 % (11.6-14.6); Red Blood Count 3.96 M/mm3 (4.2-5.4); White Blood Count 11.4 K/mm3 (4.4-11.0)
[2021-10-12 06:14] LABS: ALB/GLOB Ratio 0.5 RATIO (0.9-2.4); AST(SGOT) 22 U/L (15-37); Alanine Aminotransfer ALT/SGPT 16 U/L (13-56); Albumin, Serum 2.1 g/dL (3.2-5.0); Alkaline Phosphatase 99 U/L (45-117); Anion Gap 7 (5-15); BUN 34 mg/dL (7-18); BUN/Creat Ratio 23.6 RATIO (10-20); Calcium,Total 9.4 mg/dL (8.5-10.1); Chloride 95 mmol/L (98-107); Creatinine, Serum 1.44 mg/dL (0.55-1.02); EST Glomerular Filtration Rate 37 mL/min (>60); Est Glom Filt Rate - Afr Amer 45 mL/min (>60); Estimated Creatinine Clearance 30.38 ml/min; Globulin 4.6 g/dL (2.2-4.2); Glucose 179 mg/dL (74-106); Potassium 3.7 mmol/L (3.5-5.1); Protein, Total 6.7 g/dL (6.4-8.2); Sodium Level 130 mmol/L (136-145)
[2021-10-12] MEDS: Insulin Lispro 100 UNIT/ML INSULN.PEN SC ×3 (06:22→21:48)
[2021-10-12 06:50] LABS: Bedside Glucose 168 mg/dL (74-106)
--- NOTE | 2021-10-12 06:52 | PCM.PN.CARD ---
Subjective Subjective Patient seen and evaluated. Appears to be stable at this time. Objective Data Vital Signs: Vital Signs Temp Pulse Resp BP Pulse Ox O2 Del Method O2 Flow Rate 98.2 F 92 25 H 158/123 H 93 Nasal Cannula 5 10/11/21 19:00 10/12/21 06:00 10/12/21 06:00 10/12/21 06:00 10/12/21 06:00 10/12/21 06:00 10/12/21 06:00 FiO2 94 10/11/21 07:26 Oxygen Flow Rate (L/min) 5 Oxygen Delivery Method Nasal Cannula Weight: 251 lb 1.704 oz Body Mass Index (BMI) 38.1 Intake & Output: Intake and Output for Last 24 Hours 10/10/21 10/11/21 10/12/21 23:59 23:59 23:59 Intake Total 1090.00 / 1090.00 1283.75 / 1283.75 182.50 / 182.50 Output Total 325 / 325 200 / 200 350 / 350 Balance 765.00 / 765.00 1083.75 / 1083.75 -167.50 / -167.50 Lab / Micro Data Result Diagrams: 10/12/21 05:05 10/12/21 05:05 Labs: Laboratory Results - last 24 hr 10/11/21 06:32: POC Glucose 133 H 10/11/21 08:52: WBC 11.8 H, RBC 4.13 L, Hgb 12.1, Hct 37.6, MCV 91.0, MCH 29.3, MCHC 32.2, RDW Std Deviation 49.3 H, RDW Coeff of Sudha 14.6, Plt Count 251, MPV 10.6, Immature Gran % (Auto) 0.600, Neut % (Auto) 85.7 H, Lymph % (Auto) 5.0 L, [place] % (Auto) 7.7, Eos % (Auto) 0.7, Baso % (Auto) 0.3, Absolute Neuts (auto) 10.1 H, Absolute Lymphs (auto) 0.59 L, Nucleated RBC % 0 10/11/21 08:52: Sodium 133 L, Potassium 3.5, Chloride 99, Carbon Dioxide 30.0, Anion Gap 4 L, BUN 32 H, Creatinine 1.48 H, Estim Creat Clear Calc 29.56, Est GFR (MDRD) Af Amer 43 L, Est GFR (MDRD) Non-Af 36 L, BUN/Creatinine Ratio 21.6 H, Glucose 179 H, Calcium 9.4, Total Bilirubin 0.50, AST 12 L, ALT 10 L, Alkaline Phosphatase 88, Total Protein 6.6, Albumin 2.2 L, Globulin 4.4 H, Albumin/Globulin Ratio 0.5 L 10/11/21 11:14: POC Glucose 296 H 10/11/21 16:11: POC Glucose 179 H 10/11/21 21:29: POC Glucose 227 H 10/12/21 05:05: WBC 11.4 H, RBC 3.96 L, Hgb 11.3 L, Hct 36.1 L, MCV 91.2, MCH 28.5, MCHC 31.3 L, RDW Std Deviation 49.0 H, RDW Coeff of Sudha 14.6, Plt Count 283, MPV 11.2, Immature Gran % (Auto) 0.700, Neut % (Auto) 81.0 H, Lymph % (Auto) 7.1 L, [place] % (Auto) 10.7 H, Eos % (Auto) 0.2, Baso % (Auto) 0.3, Absolute Neuts (auto) 9.2 H, Absolute Lymphs (auto) 0.81 L, Nucleated RBC % 0 10/12/21 05:05: Sodium 130 L, Potassium 3.7, Chloride 95 L, Carbon Dioxide 28.0, Anion Gap 7, BUN 34 H, Creatinine 1.44 H, Estim Creat Clear Calc 30.38, Est GFR (MDRD) Af Amer 45 L, Est GFR (MDRD) Non-Af 37 L, BUN/Creatinine Ratio 23.6 H, Glucose 179 H, Calcium 9.4, Total Bilirubin 0.50, AST 22, ALT 16, Alkaline Phosphatase 99, Total Protein 6.7, Albumin 2.1 L, Globulin 4.6 H, Albumin/Globulin Ratio 0.5 L 10/12/21 06:21: POC Glucose 168 H Micro: Microbiology 10/09/21 17:45 Urine, Clean Catch Urine Culture - Final Mixed Gram Pos & Gram Neg Org Rhythm Strip Rhythm Strip: A-fib Rate: 152 Ectopy: None Cardiology Labs/Tests 10/11/21 08:52: WBC 11.8 H, RBC 4.13 L, Hgb 12.1, Hct 37.6, MCV 91.0, MCH 29.3, MCHC 32.2, Plt Count 251, MPV 10.6, Immature Gran % (Auto) 0.600, Neut % (Auto) 85.7 H, Lymph % (Auto) 5.0 L, [place] % (Auto) 7.7, Eos % (Auto) 0.7, Baso % (Auto) 0.3, Absolute Neuts (auto) 10.1 H, Nucleated RBC % 0 10/11/21 08:52: Sodium 133 L, Potassium 3.5, Chloride 99, Carbon Dioxide 30.0, Anion Gap 4 L, BUN 32 H, Creatinine 1.48 H, Est GFR (MDRD) Af Amer 43 L, Est GFR (MDRD) Non-Af 36 L, BUN/Creatinine Ratio 21.6 H, Glucose 179 H, Calcium 9.4, Total Bilirubin 0.50 10/12/21 05:05: WBC 11.4 H, RBC 3.96 L, Hgb 11.3 L, Hct 36.1 L, MCV 91.2, MCH 28.5, MCHC 31.3 L, Plt Count 283, MPV 11.2, Immature Gran % (Auto) 0.700, Neut % (Auto) 81.0 H, Lymph % (Auto) 7.1 L, [place] % (Auto) 10.7 H, Eos % (Auto) 0.2, Baso % (Auto) 0.3, Absolute Neuts (auto) 9.2 H, Nucleated RBC % 0 10/12/21 05:05: Sodium 130 L, Potassium 3.7, Chloride 95 L, Carbon Dioxide 28.0, Anion Gap 7, BUN 34 H, Creatinine 1.44 H, Est GFR (MDRD) Af Amer 45 L, Est GFR (MDRD) Non-Af 37 L, BUN/Creatinine Ratio 23.6 H, Glucose 179 H, Calcium 9.4, Total Bilirubin 0.50 Rhythm: EKG: ECHO: Stress Test: Cardiac Cath: PCI: CT Surgery: Holter monitor: EPS: PPM: CXR: Chest CT Scan: Physical Exam Const alert and oriented x3 General Appearance: cooperative HEENT normocephalic, head/scalp atraumatic and moist oral mucous membranes Eyes conjunctivae normal and no scleral icterus Neck no lymphadenopathy and supple General: trachea midline Resp Effort and Inspection: tachypneic and labored Auscultation: diminished lung sounds Cardio S1 normal heart sound, S2 normal heart sound and peripheral pulses 2+ throughout Rate: tachycardic Rhythm: abnormal rhythm irregularly irregular GI normal to inspection, nondistended, normoactive bowel sounds, soft to palpation and non-tender Extremity normal capillary refill and no calf tenderness General Extremity: edema bilateral lower extremity Details: moderate Skin Lesions: no lesions Rashes: no rashes Neuro no focal motor deficits and no sensory deficits noted Speech: speech normal Motor Exam: general weakness Psych thought process normal and cooperative Assessment & Plan Assessment/Plan (1) Atrial fibrillation with RVR: PLAN: She does have atrial fibrillation with a rapid ventricular response rate. My recommendation at this time is to continue with intravenous diltiazem and also start her on the oral metoprolol. We will try and see how much oral medications we can get her on today and back of the IV. We will slowly try and wean her back to the oral agents. She will continue with anticoagulation. (2) HARDEN (dyspnea on exertion): PLAN: She does have some dyspnea on exertion which is likely secondary to diastolic heart failure. We would gently try and diurese her and see how she does. Certainly her uncontrolled ventricular response rate is contributing to the above as well. (3) Chronic diastolic (congestive) heart failure: PLAN: She does have evidence of chronic diastolic heart failure. She will remain on the beta-triny and diuretics. Thank you for allowing me to participate in the care of your patient. Please don't hesitate to call if any issues arise.
[2021-10-12] MEDS: Metoprolol Tartrate 100 MG Tablet PO ×2 (08:15→21:47)
[2021-10-12] MEDS: APIXABAN 2.5 MG TABLET PO (08:15)
[2021-10-12] MEDS: Lisinopril 40 MG Tablet PO (08:16)
[2021-10-12] MEDS: dilTIAZem CD 240 MG Capsule PO ×2 (08:16→21:48)
[2021-10-12] MEDS: Polyethylene Glycol 3350 17 GM PACKET PO (08:16)
[2021-10-12] MEDS: Ceftriaxone 1 GM/50 ML BAG IV (08:24)
[2021-10-12 11:45] LABS: Bedside Glucose 179 mg/dL (74-106)
--- NOTE | 2021-10-12 13:18 | PCM.PN.HOSP ---
Documented by User: Pat Agarwal NP, FINAL INSPECTOR [employer] 10/12/21 13:30 Subjective Subjective Patient seen and examined. Reports continued dyspnea, fatigue. Denies fever, chills. Denies chest pain, palpitations. Objective Data Objective Data Vital Signs: Vital Signs Temp Pulse Resp BP Pulse Ox O2 Del Method O2 Flow Rate 97.9 F 74 22 H 116/79 98 Nasal Cannula 5 10/12/21 12:23 10/12/21 12:26 10/12/21 12:23 10/12/21 12:23 10/12/21 12:23 10/12/21 12:23 10/12/21 11:37 FiO2 94 10/11/21 07:26 Oxygen Flow Rate (L/min) 5 Oxygen Delivery Method Nasal Cannula Weight: 251 lb 1.704 oz Body Mass Index (BMI) 38.1 Intake & Output: Intake and Output for Last 24 Hours 10/10/21 10/11/21 10/12/21 23:59 23:59 23:59 Intake Total 1090.00 / 1090.00 1283.75 / 1283.75 279.67 / 279.67 Output Total 325 / 325 200 / 200 350 / 350 Balance 765.00 / 765.00 1083.75 / 1083.75 -70.33 / -70.33 Lab / Micro Data Result Diagrams: 10/12/21 05:05 10/12/21 05:05 Labs: Laboratory Results - last 24 hr 10/11/21 16:11: POC Glucose 179 H 10/11/21 21:29: POC Glucose 227 H 10/12/21 05:05: WBC 11.4 H, RBC 3.96 L, Hgb 11.3 L, Hct 36.1 L, MCV 91.2, MCH 28.5, MCHC 31.3 L, RDW Std Deviation 49.0 H, RDW Coeff of Sudha 14.6, Plt Count 283, MPV 11.2, Immature Gran % (Auto) 0.700, Neut % (Auto) 81.0 H, Lymph % (Auto) 7.1 L, White % (Auto) 10.7 H, Eos % (Auto) 0.2, Baso % (Auto) 0.3, Absolute Neuts (auto) 9.2 H, Absolute Lymphs (auto) 0.81 L, Nucleated RBC % 0 10/12/21 05:05: Sodium 130 L, Potassium 3.7, Chloride 95 L, Carbon Dioxide 28.0, Anion Gap 7, BUN 34 H, Creatinine 1.44 H, Estim Creat Clear Calc 30.38, Est GFR (MDRD) Af Amer 45 L, Est GFR (MDRD) Non-Af 37 L, BUN/Creatinine Ratio 23.6 H, Glucose 179 H, Calcium 9.4, Total Bilirubin 0.50, AST 22, ALT 16, Alkaline Phosphatase 99, Total Protein 6.7, Albumin 2.1 L, Globulin 4.6 H, Albumin/Globulin Ratio 0.5 L 10/12/21 06:21: POC Glucose 168 H 10/12/21 11:22: POC Glucose 179 H Micro: Microbiology 10/09/21 17:45 Urine, Clean Catch Urine Culture - Final Mixed Gram Pos & Gram Neg Org 10/09/21 12:50 Nasal Secretion SARS-CoV-2 Antigen (Rapid) - Final Rhythm Strip Rhythm Strip: A-fib Rate: 152 Ectopy: None Physical Exam Const alert and oriented x3 HEENT normocephalic Mouth: dry mucous membranes Eyes PERRL, EOMs intact bilaterally and conjunctivae normal Neck no lymphadenopathy Resp Resp Narrative: Becomes dyspneic with minimal activity including conversational dyspnea. Tachypneic. Effort and Inspection: tachypneic Auscultation: crackles and diminished lung sounds Cardio no murmurs Cardio Narrative: A. fib, rate controlled Peripheral Pulses: pulses 2+ throughout GI normal to inspection, nondistended, normoactive bowel sounds, non-tender and non-distended Extremity normal to inspection Skin no rashes or lesions noted Lesions: no lesions Rashes: no rashes Trauma: no lacerations or abrasions Neuro CN's II-XII intact bilaterally, no focal motor deficits, no sensory deficits noted and deep tendon reflexes 2+ bilaterally Psych mental status grossly normal and affect normal Assessment & Plan Assessment/Plan (1) Atrial fibrillation with RVR: (2) LLL pneumonia: PLAN: Plan 1. Acute hypoxic respiratory failure secondary to acute on chronic heart failure with preserved ejection fraction and left lower lobe pneumonia-remains on 6 L nasal cannula. Continue supplemental oxygen to maintain O2 sat above 90%. Remains dyspneic, tachypneic. 2. Acute on chronic heart failure with preserved ejection fraction-BNP 498. Chest x-ray with small left pleural effusion. IV Lasix. Strict I&O. Daily weight. Echocardiogram 10/02/2021 demonstrated an EF of 60%. 3. Left lower lobe pneumonia-IV azithromycin and IV Rocephin. Albuterol DuoNeb aerosols. Blood culture pending. Obtain sputum culture. 4. Paroxysmal atrial fibrillation with RVR-history of DC cardioversion attempt March 2019. Cardiology following. On Cardizem drip. Continue metoprolol. 5. Hypertension- stable, continue current regimen. 6. Hyperlipidemia-continue statin. 7. Hypothyroidism-continue Synthroid regimen. 8. Type 2 diabetes [id number] with sliding scale insulin. Continue home insulin regimen. 9. Chronic kidney disease stage IIIb-at baseline, trend BMP. DVT prophylaxis-Eliquis This patient was seen by WILDER Brown under the supervision of Dr. Busby. Time spent examining patient, reviewing data and subsequent management of care: 16 minutes Documented by User: Dr. Raul Busby MD 10/12/21 17:17 Subjective Subjective Patient seen and examined. Reports continued dyspnea, fatigue. Denies fever, chills. Denies chest pain, palpitations. Seen and examined. Patient still has dyspnea, shortness of breath. Denies chest pain. Heart rate is better controlled, 74/min. Cardizem drip getting titrated down. Objective Data Lab / Micro Data Result Diagrams: 10/12/21 05:05 10/12/21 05:05 Physical Exam Narrative Physical exam General: Alert, Oriented x3, Cooperative HEENT: Atraumatic, PERRLA, EOMI, Normocephalic Oral: No Gingival or Mucosal Lesions/ Ulcerations Neck: Supple, No JVD, Negative Carotid Bruits Lungs: Air entry diminished in bilateral lung bases. No crepitation/rhonchi Cardiovascular: A. fib, normal S1, Normal S2, No murmurs Abdomen: Bowel Sounds Present, Soft, Non Tender, Non-Distended : No renal angle tenderness. No suprapubic tenderness. Extremities: No edema, Capillary Refill Less than 3 Seconds Skin: No rashes, No breakdown Musculoskeletal: No Tenderness to Palpation of Joints or Extremities Neurological: Cranial nerves II-XII grossly intact, DTR 2+/4 and Symmetrical, Neuro grossly intact Psych/Mental Status: Flat affect Assessment & Plan Assessment/Plan (1) Atrial fibrillation with RVR: (2) LLL pneumonia: PLAN: Plan 1. Acute hypoxic respiratory failure secondary to acute on chronic heart failure with preserved ejection fraction and left lower lobe pneumonia-remains on 6 L nasal cannula. Continue supplemental oxygen to maintain O2 sat above 90%. Remains dyspneic, tachypneic. 2. Acute on chronic heart failure with preserved ejection fraction-BNP 498. Chest x-ray with small left pleural effusion. IV Lasix. Strict I&O. Daily weight. Echocardiogram 10/02/2021 demonstrated an EF of 60%. 3. Left lower lobe pneumonia-IV azithromycin and IV Rocephin. Albuterol DuoNeb aerosols. Blood culture pending. Obtain sputum culture. 4. Paroxysmal atrial fibrillation with RVR-history of DC cardioversion attempt March 2019. Cardiology following. On Cardizem drip. Continue metoprolol. 5. Hypertension- stable, continue current regimen. 6. Hyperlipidemia-continue statin. 7. Hypothyroidism-continue Synthroid regimen. 8. Type 2 diabetes [id number] with sliding scale insulin. Continue home insulin regimen. 9. Chronic kidney disease stage IIIb-at baseline, trend BMP. DVT prophylaxis-Eliquis This patient was seen by FELICIA BrownC under the supervision of Dr. Busby. Time spent examining patient, reviewing data and subsequent management of care: 15 minutes This patient was seen in conjunction with Pat SAUCEDO. I have independently interviewed and examined the patient and reviewed pertinent history, examination findings, laboratory and plan of management. I have reviewed the note and agree with the documented findings with the few additional points. In brief, patient is admitted for shortness of breath and chest pain for 2 days.? Patient had recent UTI for which she was started on antibiotic but she quit taking them.? In addition was found to A. fib with RVR. 1.? A. fib with RVR: Patient started on Cardizem drip.? Continue oral metoprolol. 10/12: Heart rate is controlled. Tapering off Cardizem drip. Continue Cardizem CD 240 mg every 12 hourly 2.? Chronic HFpEF: Patient has chronic dyspnea on exertion.? 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 Continue beta-triny. 10/12 on furosemide 20 mg IV twice daily. 3.? Left lower lobe pneumonia: On IV antibiotic.? Ceftriaxone and Zithromax. 4.? Other comorbidities include diabetes mellitus type 2, hypertension, CKD stage IIIb, dyslipidemia, hypothyroidism, class II obesity BMI 30.2 PG per metered square, history of breast cancer in remission, COPD stage II 5.? DVT prophylaxis: On chronic Eliq I have discussed my assessment with Pat SAUCEDO and orders have been reviewed. Total time of the visit including total time spent in counseling or coordination of care, (more than 50% of the total time, spent in obtaining medical information from nurses and other ancillary care providers,explaining to the patient about labs, imaging, diagnosis and management), , review of labs and imaging is 40 minutes. I spent 25 minutes and LEWIS Stewart spent 15 minutes Charges/Coding Visit Charges Inpatient E&M: 12023 Subs Hosp L2
[2021-10-12] MEDS: Furosemide 20 MG/2 ML VIAL IV ×2 (14:37→17:54)
[2021-10-12] MEDS: 0.9% Saline Lock 10 ML Syringe IV ×3 (14:38→19:31)
[2021-10-12 16:55] LABS: Bedside Glucose 140 mg/dL (74-106)
[2021-10-12] MEDS: Atorvastatin Calcium 40 MG Tablet PO (21:47)
[2021-10-12] MEDS: Insulin Glargine-YFGN 100 UNIT/ML Pen 20 UNIT SC (21:49)
[2021-10-12 22:15] LABS: Bedside Glucose 192 mg/dL (74-106)
[2021-10-13] VITALS (14 sets, daily range): BP systolic 109–158; BP diastolic 60–88; PULSE 73–99; RESP 15–22; TEMP 36.3–36.7; O2SAT 91–96
[2021-10-13] MEDS: guaiFENesin 600 MG Tablet PO ×2 (06:07→21:46)
[2021-10-13 06:30] LABS: Bedside Glucose 137 mg/dL (74-106)
--- NOTE | 2021-10-13 06:48 | PN.CARD_ITS ---
Subjective Subjective The patient was seen and evaluated. Appears to be doing better. Heart rate is better. Objective Data Vital Signs: Vital Signs Temp Pulse Resp BP Pulse Ox O2 Del Method O2 Flow Rate 97.4 F L 74 18 145/74 H 94 Nasal Cannula 5 10/13/21 04:14 10/13/21 04:14 10/13/21 04:14 10/13/21 04:14 10/13/21 04:14 10/13/21 04:14 10/13/21 04:14 FiO2 94 10/11/21 07:26 Oxygen Flow Rate (L/min) 5 Oxygen Delivery Method Nasal Cannula Weight: 251 lb 1.704 oz Body Mass Index (BMI) 38.1 Intake & Output: Intake and Output for Last 24 Hours 10/11/21 10/12/21 10/13/21 23:59 23:59 23:59 Intake Total 1283.75 / 1283.75 834.67 / 834.67 Output Total 200 / 200 700 / 700 450 / 450 Balance 1083.75 / 1083.75 134.67 / 134.67 -450 / -450 Lab / Micro Data Result Diagrams: 10/12/21 05:05 10/12/21 05:05 Labs: Laboratory Results - last 24 hr 10/12/21 06:21: POC Glucose 168 H 10/12/21 11:22: POC Glucose 179 H 10/12/21 16:36: POC Glucose 140 H 10/12/21 21:45: POC Glucose 192 H 10/13/21 06:10: POC Glucose 137 H Rhythm Strip Rhythm Strip: A-fib Rate: 152 Ectopy: None Cardiology Labs/Tests Rhythm: EKG: ECHO: Stress Test: Cardiac Cath: PCI: CT Surgery: Holter monitor: EPS: PPM: CXR: Chest CT Scan: Physical Exam Const alert and oriented x3 General Appearance: cooperative HEENT normocephalic, head/scalp atraumatic and moist oral mucous membranes Eyes conjunctivae normal and no scleral icterus Neck no lymphadenopathy and supple General: trachea midline Resp Effort and Inspection: tachypneic and labored Auscultation: diminished lung sounds Cardio S1 normal heart sound, S2 normal heart sound and peripheral pulses 2+ throughout Rate: tachycardic Rhythm: abnormal rhythm irregularly irregular GI normal to inspection, nondistended, normoactive bowel sounds, soft to palpation and non-tender Extremity normal capillary refill and no calf tenderness General Extremity: edema bilateral lower extremity Details: moderate Skin Lesions: no lesions Rashes: no rashes Neuro no focal motor deficits and no sensory deficits noted Speech: speech normal Motor Exam: general weakness Psych thought process normal and cooperative Assessment & Plan Assessment/Plan (1) Atrial fibrillation with RVR: PLAN: She does have atrial fibrillation with a rapid ventricular response rate. She appears to be doing better on oral medications at this time. We will continue for now. (2) HARDEN (dyspnea on exertion): PLAN: She does have some dyspnea on exertion which is likely secondary to diastolic heart failure. Her chest x-ray still demonstrates evidence of left- sided infiltrate. (3) Chronic diastolic (congestive) heart failure: PLAN: She does have evidence of chronic diastolic heart failure. She will remain on the beta-triny and diuretics. Thank you for allowing me to participate in the care of your patient. Please don't hesitate to call if any issues arise.
[2021-10-13 07:20] LABS: Absolute Lymphocyte Count 0.82 X10^3/uL (0.83-4.51); Absolute Neutrophil Count 7.3 X10^3/uL (2.0-7.7); Basophil# 0.03 X10^3/uL; Basophil% 0.3 % (0-1); Eosinophil# 0.12 X10^3/uL; Eosinophils% 1.3 % (0-5); Hematocrit 35.3 % (37-47); Hemoglobin 11.1 g/dL (12.0-15.0); Lymphocyte # 0.82 X10^3/ul (0.83-4.51); Lymphocyte % 8.6 % (19-41); Mean Corp Hgb Conc 31.4 g/dL (32-36); Mean Corpuscular Hgb 28.6 pg (27.0-32.0); Mean Platelet Vol. 10.2 fl (6.2-12.0); Monocyte# 1.19 X10^3/uL; Monocyte% 12.4 % (0-10); NRBC Flagged by Analyzer 0 % (0-5); Neutrophil % 76.4 % (47-70); Platelet Count 276 K/mm3 (150-450); RBC Distribution Width CV 14.8 % (11.6-14.6); Red Blood Count 3.88 M/mm3 (4.2-5.4); White Blood Count 9.6 K/mm3 (4.4-11.0)
[2021-10-13 07:47] LABS: ALB/GLOB Ratio 0.5 RATIO (0.9-2.4); AST(SGOT) 22 U/L (15-37); Alanine Aminotransfer ALT/SGPT 17 U/L (13-56); Alkaline Phosphatase 91 U/L (45-117); Anion Gap 4 (5-15); BUN 39 mg/dL (7-18); BUN/Creat Ratio 19.6 RATIO (10-20); Calcium,Total 9.3 mg/dL (8.5-10.1); Chloride 98 mmol/L (98-107); Creatinine, Serum 1.99 mg/dL (0.55-1.02); EST Glomerular Filtration Rate 26 mL/min (>60); Est Glom Filt Rate - Afr Amer 31 mL/min (>60); Estimated Creatinine Clearance 21.99 ml/min; Globulin 4.4 g/dL (2.2-4.2); Glucose 149 mg/dL (74-106); Potassium 3.8 mmol/L (3.5-5.1); Protein, Total 6.4 g/dL (6.4-8.2); Sodium Level 132 mmol/L (136-145)
--- NOTE | 2021-10-13 08:51 | CASEMGMT ---
JOSH met with patient. Introduced self and role at [facility]. JOSH discussed discharge plan with patient. Patient feels she will be fine going home. Patient said there is always someone around to help. JOSH told her that JOSH and FLETCHER UGARTE are available for d/c planning assistance. Karen LUCAS
[2021-10-13] MEDS: Polyethylene Glycol 3350 17 GM PACKET PO (10:22)
[2021-10-13] MEDS: APIXABAN 2.5 MG TABLET PO (10:22)
[2021-10-13] MEDS: Metoprolol Tartrate 100 MG Tablet PO ×2 (10:22→21:46)
[2021-10-13] MEDS: dilTIAZem CD 240 MG Capsule PO ×2 (10:22→21:47)
[2021-10-13] MEDS: Ceftriaxone 1 GM/50 ML BAG IV (10:22)
[2021-10-13] MEDS: Lisinopril 40 MG Tablet PO (10:22)
[2021-10-13] MEDS: Insulin Lispro 100 UNIT/ML INSULN.PEN SC ×2 (11:27→21:48)
[2021-10-13 11:50] LABS: Bedside Glucose 221 mg/dL (74-106)
--- NOTE | 2021-10-13 12:49 | PCM.PN.HOSP ---
Documented by User: Pat Agarwal NP, FUNERAL SALES MANAGER-C 10/13/21 13:10 Subjective Subjective Patient seen and examined. Reports feeling fatigued and dyspneic following working with therapy. Denies fever, chills. Feels breathing is overall improving. Objective Data Objective Data Vital Signs: Vital Signs Temp Pulse Resp BP Pulse Ox O2 Del Method O2 Flow Rate 97.4 F L 99 20 H 116/78 96 Nasal Cannula 5 10/13/21 10:15 10/13/21 10:10/13/21 10:15 10/13/21 10:22 10/13/21 10:15 10/13/21 10:15 10/13/21 10:15 FiO2 94 10/11/21 07:26 Oxygen Flow Rate (L/min) 5 Oxygen Delivery Method Nasal Cannula Weight: 251 lb 1.704 oz Body Mass Index (BMI) 38.1 Intake & Output: Intake and Output for Last 24 Hours 10/11/21 10/12/21 10/13/21 23:59 23:59 23:59 Intake Total 1283.75 / 1283.75 834.67 / 834.67 530 / 530 Output Total 200 / 200 700 / 700 750 / 750 Balance 1083.75 / 1083.75 134.67 / 134.67 -220 / -220 Lab / Micro Data Result Diagrams: 10/13/21 06:50 10/13/21 06:50 Labs: Laboratory Results - last 24 hr 10/12/21 16:36: POC Glucose 140 H 10/12/21 21:45: POC Glucose 192 H 10/13/21 06:10: POC Glucose 137 H 10/13/21 06:50: WBC 9.6, RBC 3.88 L, Hgb 11.1 L, Hct 35.3 L, MCV 91.0, MCH 28.6, MCHC 31.4 L, RDW Std Deviation 49.0 H, RDW Coeff of Sudha 14.8 H, Plt Count 276, MPV 10.2, Immature Gran % (Auto) 1.000 H, Neut % (Auto) 76.4 H, Lymph % (Auto) 8.6 L, [place] % (Auto) 12.4 H, Eos % (Auto) 1.3, Baso % (Auto) 0.3, Absolute Neuts (auto) 7.3, Absolute Lymphs (auto) 0.82 L, Nucleated RBC % 0 10/13/21 06:50: Sodium 132 L, Potassium 3.8, Chloride 98, Carbon Dioxide 30.0, Anion Gap 4 L, BUN 39 H, Creatinine 1.99 H, Estim Creat Clear Calc 21.99, Est GFR (MDRD) Af Amer 31 L, Est GFR (MDRD) Non-Af 26 L, BUN/Creatinine Ratio 19.6, Glucose 149 H, Calcium 9.3, Total Bilirubin 0.30, AST 22, ALT 17, Alkaline Phosphatase 91, Total Protein 6.4, Albumin 2.0 L, Globulin 4.4 H, Albumin/Globulin Ratio 0.5 L 10/13/21 11:26: POC Glucose 221 H Micro: Microbiology 10/09/21 17:45 Urine, Clean Catch Urine Culture - Final Mixed Gram Pos & Gram Neg Org 10/09/21 12:50 Nasal Secretion SARS-CoV-2 Antigen (Rapid) - Final Rhythm Strip Rhythm Strip: A-fib Rate: 152 Ectopy: None Physical Exam Const alert and oriented x3 Constitutional Narrative: Fatigued appearing HEENT normocephalic and moist oral mucous membranes Eyes PERRL, EOMs intact bilaterally and conjunctivae normal Neck no lymphadenopathy Resp Auscultation: crackles and diminished lung sounds Cardio regular rate and no murmurs Cardio Narrative: Atrial fibrillation, rate controlled Peripheral Pulses: pulses 2+ throughout GI normal to inspection, nondistended, normoactive bowel sounds, non-tender and non-distended Extremity normal to inspection Skin no rashes or lesions noted Lesions: no lesions Rashes: no rashes Trauma: no lacerations or abrasions Neuro CN's II-XII intact bilaterally, no focal motor deficits, no sensory deficits noted and deep tendon reflexes 2+ bilaterally Psych mental status grossly normal and affect normal Assessment & Plan Assessment/Plan (1) Chronic diastolic (congestive) heart failure: PLAN: Plan 1.? Acute hypoxic respiratory failure secondary to acute on chronic heart failure with preserved ejection fraction and left lower lobe pneumonia-remains on 5 L nasal cannula.? Continue supplemental oxygen to maintain O2 sat above 90%.? Wean as tolerated. Slowly improving. 2.? Acute on chronic heart failure with preserved ejection fraction-BNP 498.? Chest x-ray with small left pleural effusion.? Strict I&O.? Daily weight.? Echocardiogram 10/02/2021 demonstrated an EF of 60%. DC further IV Lasix given increasing creatinine. Likely resume oral Lasix in a.m. pending repeat BMP. 3.? Left lower lobe pneumonia-IV azithromycin and IV Rocephin.? Albuterol DuoNeb aerosols.? Blood culture pending.? Obtain sputum culture. 4. Paroxysmal atrial fibrillation with RVR-history of DC cardioversion attempt March 2019.? Cardiology following.?Rate controlled, continue metoprolol, Cardizem, Eliquis. 5. Hypertension- stable, continue current regimen. 6. Hyperlipidemia-continue statin. 7. Hypothyroidism-continue Synthroid regimen. 8. Type 2 diabetes [id number] with sliding scale insulin.? Continue home insulin regimen. 9.? Chronic kidney disease stage IIIb-at baseline, trend BMP. DVT prophylaxis-Eliquis This patient was seen by WILDER Brown under the supervision of Dr. Busby. Discharge planning: PT recommending SNF, SW following. Time spent examining patient, reviewing data and subsequent management of care: 12 minutes Documented by User: Dr. Raul Busby MD 10/13/21 16:34 Subjective Subjective Patient seen and examined. Reports feeling fatigued and dyspneic following working with therapy. Denies fever, chills. Feels breathing is overall improving. Seen and examined. Patient shortness of breath is better. Heart rate is controlled. On 5 L of oxygen. Hypoxia is new for her. Objective Data Lab / Micro Data Result Diagrams: 10/13/21 06:50 10/13/21 06:50 Labs: Laboratory Results - last 24 hr 10/12/21 16:36: POC Glucose 140 H 10/12/21 21:45: POC Glucose 192 H 10/13/21 06:10: POC Glucose 137 H 10/13/21 06:50: WBC 9.6, RBC 3.88 L, Hgb 11.1 L, Hct 35.3 L, MCV 91.0, MCH 28.6, MCHC 31.4 L, RDW Std Deviation 49.0 H, RDW Coeff of Sudha 14.8 H, Plt Count 276, MPV 10.2, Immature Gran % (Auto) 1.000 H, Neut % (Auto) 76.4 H, Lymph % (Auto) 8.6 L, [place] % (Auto) 12.4 H, Eos % (Auto) 1.3, Baso % (Auto) 0.3, Absolute Neuts (auto) 7.3, Absolute Lymphs (auto) 0.82 L, Nucleated RBC % 0 10/13/21 06:50: Sodium 132 L, Potassium 3.8, Chloride 98, Carbon Dioxide 30.0, Anion Gap 4 L, BUN 39 H, Creatinine 1.99 H, Estim Creat Clear Calc 21.99, Est GFR (MDRD) Af Amer 31 L, Est GFR (MDRD) Non-Af 26 L, BUN/Creatinine Ratio 19.6, Glucose 149 H, Calcium 9.3, Total Bilirubin 0.30, AST 22, ALT 17, Alkaline Phosphatase 91, Total Protein 6.4, Albumin 2.0 L, Globulin 4.4 H, Albumin/Globulin Ratio 0.5 L 10/13/21 11:26: POC Glucose 221 H Physical Exam Narrative Physical exam General: Alert, Oriented x3, Cooperative HEENT: Atraumatic, PERRLA, EOMI, Normocephalic Oral: No Gingival or Mucosal Lesions/ Ulcerations Neck: Supple, No JVD, Negative Carotid Bruits Lungs: Air entry diminished in bilateral lung bases. No crepitation/rhonchi. Hypoxia. Cardiovascular: A. fib, normal S1, Normal S2, No murmurs Abdomen: Bowel Sounds Present, Soft, Non Tender, Non-Distended : No renal angle tenderness. No suprapubic tenderness. Extremities: No edema, Capillary Refill Less than 3 Seconds Skin: No rashes, No breakdown Musculoskeletal: No Tenderness to Palpation of Joints or Extremities, muscle strength 4/5 at major joints Neurological: Cranial nerves II-XII grossly intact, DTR 2+/4 and Symmetrical Psych/Mental Status: Flat affect Assessment & Plan Assessment/Plan (1) Chronic diastolic (congestive) heart failure: PLAN: Plan 1.? Acute hypoxic respiratory failure secondary to acute on chronic heart failure with preserved ejection fraction and left lower lobe pneumonia-remains on 5 L nasal cannula.? Continue supplemental oxygen to maintain O2 sat above 90%.? Wean as tolerated. Slowly improving. 2.? Acute on chronic heart failure with preserved ejection fraction-BNP 498.? Chest x-ray with small left pleural effusion.? Strict I&O.? Daily weight.? Echocardiogram 10/02/2021 demonstrated an EF of 60%. DC further IV Lasix given increasing creatinine. Likely resume oral Lasix in a.m. pending repeat BMP. 3.? Left lower lobe pneumonia-IV azithromycin and IV Rocephin.? Albuterol DuoNeb aerosols.? Blood culture pending.? Obtain sputum culture. 4. Paroxysmal atrial fibrillation with RVR-history of DC cardioversion attempt March 2019.? Cardiology following.?Rate controlled, continue metoprolol, Cardizem, Eliquis. 5. Hypertension- stable, continue current regimen. 6. Hyperlipidemia-continue statin. 7. Hypothyroidism-continue Synthroid regimen. 8. Type 2 diabetes [id number] with sliding scale insulin.? Continue home insulin regimen. 9.? Chronic kidney disease stage IIIb-at baseline, trend BMP. DVT prophylaxis-Eliquis This patient was seen by WILDER Brown under the supervision of Dr. Busby. Discharge planning: PT recommending SNF, SW following. Time spent examining patient, reviewing data and subsequent management of care: 15 minutes This patient was seen by WILDER Brown under the supervision of Dr. Busby. This patient was seen in conjunction with Pat SAUCEDO.? I have independently interviewed and examined the patient and reviewed pertinent history, examination findings, laboratory and plan of management.? I have? reviewed the note and agree with the documented findings with the few? additional points. In brief, patient is admitted for shortness of breath and chest pain? for 2 days.? Patient had recent UTI for which she was started on antibiotic but she quit taking them.? In addition was found to A. fib with RVR. 1.? A. fib with RVR: Patient started on Cardizem drip.? Continue oral metoprolol. 10/12: Heart rate is controlled.? Tapering off Cardizem drip.? Continue Cardizem CD 240 mg every 12 hourly 10/13: On Cardizem CD and metoprolol. 2.? Chronic HFpEF: Patient has chronic dyspnea on exertion.? 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 Continue beta-triny. 10/12 on furosemide 20 mg IV twice daily. 10/13: Acute hypoxic respiratory failure possible due to COPD exacerbation from left lower lobe pneumonia: Started on ipratropium nebulization, Solu-Medrol. Continue IV antibiotic 3.? Left lower lobe pneumonia: On IV antibiotic.? Ceftriaxone and Zithromax. 4.? Other comorbidities include diabetes mellitus type 2, hypertension, CKD stage IIIb, dyslipidemia, hypothyroidism, class II obesity BMI 30.2 PG per metered square, history of breast cancer in remission, COPD stage II 5.? DVT prophylaxis: On chronic Eliq I have discussed my assessment with FUNERAL SALES MANAGERPat and orders have been reviewed. Total time of the visit including total time spent in counseling or coordination of care, (more than 50% of the total time, spent in obtaining medical information from nurses and other ancillary care providers,explaining to the patient about labs, imaging, diagnosis and management), , review of labs and imaging is? 40 minutes.? I spent 25 minutes and LEWIS Stewart spent 15 minutes Charges/Coding Visit Charges Inpatient E&M: 11121 Subs Hosp L2
--- NOTE | 2021-10-13 13:15 | CASEMGMT ---
SW spoke with patient again about her discharge plan. SW explained to patient she is much weaker than normal due to being sick and lying in bed. SW talked with patient about going somewhere for rehab. SW went over some options and patient did agree to let SW put her name on the TCU list. SW let patient know that her Primary Care Doctor, Dr Douglas is the doctor in [facility]. JOSH spoke with [facility] and they would be able to take patient. Karen LUCAS
--- NOTE | 2021-10-13 14:15 | CASEMGMT ---
SW participated in interdisciplinary rounds. Patient was encouraged to go to TCU for therapy. Patient agreed to go to TCU to try rehab. Plan: d/c to [facility]CU under skilled level of care. Karen ULCAS
[2021-10-13] MEDS: Acetaminophen 325 MG Tablet 650 MG PO (15:28)
[2021-10-13 17:05] LABS: Bedside Glucose 141 mg/dL (74-106)
[2021-10-13] MEDS: 0.9% Saline Lock 10 ML Syringe IV (21:03)
[2021-10-13] MEDS: Insulin Glargine-YFGN 100 UNIT/ML Pen 20 UNIT SC (21:47)
[2021-10-13] MEDS: Atorvastatin Calcium 40 MG Tablet PO (21:47)
--- NOTE | 2021-10-13 21:55 | NURSING ---
Patient resting with eyes closed and mouth opened on 5L nasal cannula spo2 87%. Applied a high mary nasal cannula increase oxygen to 6L spo2 94%.
[2021-10-13 22:45] LABS: Bedside Glucose 289 mg/dL (74-106)
[2021-10-14] VITALS (18 sets, daily range): BP systolic 135–162; BP diastolic 70–89; PULSE 72–100; RESP 16–20; TEMP 36.4–36.7; O2SAT 88–96
[2021-10-14] MEDS: Ipratropium 0.5 MG/2.5 ML SOLUTION INHALATION ×6 (03:23→22:55)
[2021-10-14 05:59] LABS: Absolute Neutrophil Count 7.6 X10^3/uL (2.0-7.7); Basophil# 0.02 X10^3/uL; Basophil% 0.2 % (0-1); Eosinophil# 0.01 X10^3/uL; Eosinophils% 0.1 % (0-5); Hematocrit 36.7 % (37-47); Hemoglobin 11.3 g/dL (12.0-15.0); Lymphocyte % 5.9 % (19-41); Mean Corp Hgb Conc 30.8 g/dL (32-36); Mean Corpuscular Hgb 28.3 pg (27.0-32.0); Mean Corpuscular Volume 91.8 fL (81-99); Mean Platelet Vol. 10.3 fl (6.2-12.0); Monocyte# 0.19 X10^3/uL; Monocyte% 2.3 % (0-10); NRBC Flagged by Analyzer 0 % (0-5); Neutrophil # 7.57 X10^3/uL (2.7-7.7); Neutrophil % 89.7 % (47-70); POSITIVE DIFFERENTIAL YES; Platelet Count 340 K/mm3 (150-450); RBC Distribution Width CV 14.6 % (11.6-14.6); RBC Distribution Width SD 49.4 fl (35.1-43.9); White Blood Count 8.4 K/mm3 (4.4-11.0)
[2021-10-14] MEDS: Insulin Lispro 100 UNIT/ML INSULN.PEN SC ×4 (05:59→21:22)
--- NOTE | 2021-10-14 06:01 | NURSING ---
Patient sp02 96% via 6L nasal cannula decrease oxygen to 5L spo2 93%
[2021-10-14 06:10] LABS: Differential Indicated SCAN CRITERIA MET
[2021-10-14 06:28] LABS: Differential Comment SCANNED
[2021-10-14 06:29] LABS: Anion Gap 5 (5-15); BUN 49 mg/dL (7-18); BUN/Creat Ratio 24.3 RATIO (10-20); Calcium,Total 9.8 mg/dL (8.5-10.1); Chloride 98 mmol/L (98-107); Creatinine, Serum 2.02 mg/dL (0.55-1.02); EST Glomerular Filtration Rate 25 mL/min (>60); Est Glom Filt Rate - Afr Amer 30 mL/min (>60); Estimated Creatinine Clearance 21.66 ml/min; Glucose 271 mg/dL (74-106); Potassium 4.2 mmol/L (3.5-5.1); Sodium Level 133 mmol/L (136-145)
[2021-10-14 07:11] LABS: Bedside Glucose 254 mg/dL (74-106)
--- NOTE | 2021-10-14 08:37 | NURSING ---
Pulse ox 84% upon entering room. Patient on 5L HiFlo NC, adjusted pulse ox and up to 88%. Remained at 88%, increased O2 to 6L and up to 90%.
[2021-10-14] MEDS: Metoprolol Tartrate 100 MG Tablet PO ×2 (08:42→21:23)
[2021-10-14] MEDS: guaiFENesin 600 MG Tablet PO ×2 (08:42→21:24)
[2021-10-14] MEDS: Lisinopril 40 MG Tablet PO (08:42)
[2021-10-14] MEDS: dilTIAZem CD 240 MG Capsule PO ×2 (08:43→21:22)
[2021-10-14] MEDS: APIXABAN 2.5 MG TABLET PO (08:43)
[2021-10-14] MEDS: Polyethylene Glycol 3350 17 GM PACKET PO (08:43)
[2021-10-14] MEDS: Ceftriaxone 1 GM/50 ML BAG IV (11:38)
[2021-10-14] MEDS: 0.9% Saline Lock 10 ML Syringe IV ×3 (11:38→21:24)
[2021-10-14 12:05] LABS: Bedside Glucose 309 mg/dL (74-106)
--- NOTE | 2021-10-14 12:57 | PCM.PN.HOSP ---
Documented by User: Pat Agarwal NP, PRODUCTION DESIGNER-C 10/14/21 13:08 Subjective Subjective Patient seen and examined. Denies worsening shortness of breath. Increased to 6 L nasal cannula. Objective Data Objective Data Vital Signs: Vital Signs Temp Pulse Resp BP Pulse Ox O2 Del Method O2 Flow Rate 97.7 F L 79 20 H 135/71 H 94 Nasal Cannula 6 10/14/21 10:00 10/14/21 10:48 10/14/21 10:48 10/14/21 10:00 10/14/21 10:00 10/14/21 10:00 10/14/21 10:00 FiO2 94 10/11/21 07:26 Oxygen Flow Rate (L/min) 6 Oxygen Delivery Method Nasal Cannula Weight: 251 lb 1.704 oz Body Mass Index (BMI) 38.1 Intake & Output: Intake and Output for Last 24 Hours 10/12/21 10/13/21 10/14/21 23:59 23:59 23:59 Intake Total 834.67 / 834.67 930 / 930 50 / 50 Output Total 700 / 700 1450 / 1450 500 / 500 Balance 134.67 / 134.67 -520 / -520 -450 / -450 Lab / Micro Data Result Diagrams: 10/14/21 05:38 10/14/21 05:38 Labs: Laboratory Results - last 24 hr 10/13/21 16:30: POC Glucose 141 H 10/13/21 21:45: POC Glucose 289 H 10/14/21 05:38: WBC 8.4, RBC 4.00 L, Hgb 11.3 L, Hct 36.7 L, MCV 91.8, MCH 28.3, MCHC 30.8 L, RDW Std Deviation 49.4 H, RDW Coeff of Sudha 14.6, Plt Count 340, MPV 10.3, Immature Gran % (Auto) 1.800 H, Neut % (Auto) 89.7 H, Lymph % (Auto) 5.9 L, [place] % (Auto) 2.3, Eos % (Auto) 0.1, Baso % (Auto) 0.2, Absolute Neuts (auto) 7.6, Absolute Lymphs (auto) 0.50 L, Nucleated RBC % 0, Differential Comment SCANNED 10/14/21 05:38: Sodium 133 L, Potassium 4.2, Chloride 98, Carbon Dioxide 30.0, Anion Gap 5, BUN 49 H, Creatinine 2.02 H, Estim Creat Clear Calc 21.66, Est GFR (MDRD) Af Amer 30 L, Est GFR (MDRD) Non-Af 25 L, BUN/Creatinine Ratio 24.3 H, Glucose 271 H, Calcium 9.8 10/14/21 05:58: POC Glucose 254 H 10/14/21 11:40: POC Glucose 309 H Micro: Microbiology 10/09/21 17:45 Urine, Clean Catch Urine Culture - Final Mixed Gram Pos & Gram Neg Org 10/09/21 12:50 Nasal Secretion SARS-CoV-2 Antigen (Rapid) - Final Rhythm Strip Rhythm Strip: A-fib Rate: 152 Ectopy: None Physical Exam Const alert, oriented x3 and no apparent distress Orientation / Consciousness: awake, oriented to person, oriented to place and oriented to time HEENT normocephalic and moist oral mucous membranes Eyes PERRL, EOMs intact bilaterally and conjunctivae normal Neck no lymphadenopathy Resp clear to auscultation bilaterally Auscultation: diminished lung sounds Cardio regular rate and no murmurs Cardio Narrative: A. fib, rate controlled Peripheral Pulses: pulses 2+ throughout GI normal to inspection, nondistended, normoactive bowel sounds, non-tender and non-distended Extremity normal to inspection Skin no rashes or lesions noted Lesions: no lesions Rashes: no rashes Trauma: no lacerations or abrasions Neuro CN's II-XII intact bilaterally, no focal motor deficits, no sensory deficits noted and deep tendon reflexes 2+ bilaterally Psych mental status grossly normal and affect normal Assessment & Plan Assessment/Plan (1) LLL pneumonia: PLAN: Plan 1.? Acute hypoxic respiratory failure secondary to acute on chronic heart failure with preserved ejection fraction and left lower lobe pneumonia-remains on 6 L nasal cannula.? Continue supplemental oxygen to maintain O2 sat above 90%.? Wean as tolerated. 2.? Acute on chronic heart failure with preserved ejection fraction-BNP 498.? Chest x-ray with small left pleural effusion.? Strict I&O.? Daily weight.? Echocardiogram 10/02/2021 demonstrated an EF of 60%.? DC further IV Lasix given increasing creatinine.? 3.? Left lower lobe pneumonia-IV azithromycin and IV Rocephin.? Albuterol DuoNeb aerosols.? Blood culture pending.? Obtain sputum culture. 4. SABRINA on CKD stage III-hold nephrotoxic regimen. If creatinine further trends up, will consult nephrology. Obtain urine studies. 5. Paroxysmal atrial fibrillation with RVR-history of DC cardioversion attempt March 2019.? Cardiology following.?Rate controlled, continue metoprolol, Cardizem, Eliquis. 6. Hypertension- stable, continue current regimen. 7. Hyperlipidemia-continue statin. 8. Hypothyroidism-continue Synthroid regimen. 9. Type 2 diabetes [id number] with sliding scale insulin.? Continue home insulin regimen. DVT prophylaxis-Eliquis This patient was seen by WILDER Brown under the supervision of Dr. Busby. Discharge planning: TCU pending medically stable. Time spent examining patient, reviewing data and subsequent management of care: 12 minutes Documented by User: Dr. Raul Busby MD 10/14/21 14:35 Subjective Subjective Patient seen and examined. Denies worsening shortness of breath. Increased to 6 L nasal cannula. Seen and examined. Patient still require 6 L of oxygen. Although shortness of breath better. Objective Data Lab / Micro Data Result Diagrams: 10/14/21 05:38 10/14/21 05:38 Physical Exam Narrative Physical exam General: Alert, Oriented x3, Cooperative HEENT: Atraumatic, PERRLA, EOMI, Normocephalic Oral: No Gingival or Mucosal Lesions/ Ulcerations Neck: Supple, No JVD, Negative Carotid Bruits Lungs: Air entry diminished in bilateral lung bases. Bilateral rhonchi in lower lobes. Hypoxia on 6 L of oxygen Cardiovascular: A. fib, normal S1, Normal S2, No murmurs Abdomen: Bowel Sounds Present, Soft, Non Tender, Non-Distended : No renal angle tenderness. No suprapubic tenderness. Extremities: No edema, Capillary Refill Less than 3 Seconds Skin: No rashes, No breakdown Musculoskeletal: No Tenderness to Palpation of Joints or Extremities, muscle strength 4/5 at major joints Neurological: Cranial nerves II-XII grossly intact, DTR 2+/4 and Symmetrical Psych/Mental Status: Flat affect Assessment & Plan Assessment/Plan (1) LLL pneumonia: PLAN: Plan 1.? Acute hypoxic respiratory failure secondary to acute on chronic heart failure with preserved ejection fraction and left lower lobe pneumonia-remains on 6 L nasal cannula.? Continue supplemental oxygen to maintain O2 sat above 90%.? Wean as tolerated. 2.? Acute on chronic heart failure with preserved ejection fraction-BNP 498.? Chest x-ray with small left pleural effusion.? Strict I&O.? Daily weight.? Echocardiogram 10/02/2021 demonstrated an EF of 60%.? DC further IV Lasix given increasing creatinine.? 3.? Left lower lobe pneumonia-IV azithromycin and IV Rocephin.? Albuterol DuoNeb aerosols.? Blood culture pending.? Obtain sputum culture. 4. SABRINA on CKD stage III-hold nephrotoxic regimen. If creatinine further trends up, will consult nephrology. Obtain urine studies. 5. Paroxysmal atrial fibrillation with RVR-history of DC cardioversion attempt March 2019.? Cardiology following.?Rate controlled, continue metoprolol, Cardizem, Eliquis. 6. Hypertension- stable, continue current regimen. 7. Hyperlipidemia-continue statin. 8. Hypothyroidism-continue Synthroid regimen. 9. Type 2 diabetes [id number] with sliding scale insulin.? Continue home insulin regimen. DVT prophylaxis-Eliquis This patient was seen by FELICIA BrownC under the supervision of Dr. Busby. Discharge planning: TCU pending medically stable. Time spent examining patient, reviewing data and subsequent management of care: 12 minutes This patient was seen in conjunction with PRODUCTION DESIGNERPat.? I have independently interviewed and examined the patient and reviewed pertinent history, examination findings, laboratory and plan of management.? I have? reviewed the note and agree with the documented findings with the few? additional points. In brief, patient is admitted for shortness of breath and chest pain? for 2 days.? Patient had recent UTI for which she was started on antibiotic but she quit taking them.? In addition was found to A. fib with RVR. 1.? A. fib with RVR: Patient started on Cardizem drip.? Continue oral metoprolol. 10/12: Heart rate is controlled.? Tapering off Cardizem drip.? Continue Cardizem CD 240 mg every 12 hourly 2.? Chronic HFpEF: Patient has chronic dyspnea on exertion.? 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 Continue beta-triny. 10/12 on furosemide 20 mg IV twice daily. 3.? Left lower lobe pneumonia: On IV antibiotic.? Ceftriaxone and Zithromax. 10/14: COPD exacerbation from pneumonia: IV Solu-Medrol, bronchodilator ipratropium, incentive spirometry and Pep ordered. 4.? Other comorbidities include diabetes mellitus type 2, hypertension, CKD stage IIIb, dyslipidemia, hypothyroidism, class II obesity BMI 30.2 PG per metered square, history of breast cancer in remission, COPD stage II 5.? DVT prophylaxis: On chronic Eliq I have discussed my assessment with PRODUCTION DESIGNERPat and orders have been reviewed. Total time of the visit including total time spent in counseling or coordination of care, (more than 50% of the total time, spent in obtaining medical information from nurses and other ancillary care providers,explaining to the patient about labs, imaging, diagnosis and management), , review of labs and imaging is? 40 minutes.? I spent 28 minutes and LEWIS Stewart spent 12 minutes Charges/Coding Visit Charges Inpatient E&M: 42198 Subs Hosp L2
--- NOTE | 2021-10-14 14:13 | NURSING ---
Pt oxygen saturation 94% on 6L, decreased O2 to 5L.
[2021-10-14 16:26] LABS: Bedside Glucose 316 mg/dL (74-106)
--- NOTE | 2021-10-14 16:34 | CASEMGMT ---
Social Work Note Per solar energy technician questions, pt has completed HCPOA and LW, has not provided copy to [facility], and pt is unable to bring in copy. Maria Esther Mahoney LAW PROFESSOR, LAP CUTTER
[2021-10-14] MEDS: Atorvastatin Calcium 40 MG Tablet PO (21:23)
[2021-10-14] MEDS: Insulin Glargine-YFGN 100 UNIT/ML Pen 20 UNIT SC (21:23)
[2021-10-14 22:00] LABS: Bedside Glucose 393 mg/dL (74-106)
[2021-10-15] VITALS (11 sets, daily range): BP systolic 131–189; BP diastolic 80–98; PULSE 72–88; RESP 16–25; TEMP 36.4–36.5; O2SAT 91–94
[2021-10-15] MEDS: Insulin Lispro 100 UNIT/ML INSULN.PEN SC ×2 (06:33→12:06)
[2021-10-15 07:00] LABS: Bedside Glucose 386 mg/dL (74-106)
[2021-10-15] MEDS: Ipratropium 0.5 MG/2.5 ML SOLUTION INHALATION ×2 (07:02→10:40)
[2021-10-15 07:20] LABS: Absolute Lymphocyte Count 0.68 X10^3/uL (0.83-4.51); Absolute Neutrophil Count 13.8 X10^3/uL (2.0-7.7); Basophil# 0.04 X10^3/uL; Basophil% 0.3 % (0-1); Hemoglobin 11.6 g/dL (12.0-15.0); Lymphocyte # 0.68 X10^3/ul (0.83-4.51); Lymphocyte % 4.4 % (19-41); Mean Corp Hgb Conc 32.2 g/dL (32-36); Mean Corpuscular Hgb 28.9 pg (27.0-32.0); Mean Corpuscular Volume 89.8 fL (81-99); Mean Platelet Vol. 10.4 fl (6.2-12.0); Monocyte% 3.8 % (0-10); NRBC Flagged by Analyzer 0 % (0-5); Neutrophil # 13.77 X10^3/uL (2.7-7.7); Neutrophil % 88.1 % (47-70); Platelet Count 435 K/mm3 (150-450); RBC Distribution Width CV 14.6 % (11.6-14.6); RBC Distribution Width SD 47.8 fl (35.1-43.9); Red Blood Count 4.01 M/mm3 (4.2-5.4); White Blood Count 15.6 K/mm3 (4.4-11.0)
[2021-10-15 07:41] LABS: Anion Gap 7 (5-15); BUN 55 mg/dL (7-18); BUN/Creat Ratio 28.1 RATIO (10-20); Calcium,Total 10.2 mg/dL (8.5-10.1); Chloride 96 mmol/L (98-107); Creatinine, Serum 1.96 mg/dL (0.55-1.02); EST Glomerular Filtration Rate 26 mL/min (>60); Est Glom Filt Rate - Afr Amer 31 mL/min (>60); Estimated Creatinine Clearance 22.32 ml/min; Glucose 414 mg/dL (74-106); Potassium 4.3 mmol/L (3.5-5.1); Sodium Level 131 mmol/L (136-145)
[2021-10-15] MEDS: 0.9% Saline Lock 10 ML Syringe IV (09:57)
[2021-10-15] MEDS: guaiFENesin 600 MG Tablet PO (09:57)
[2021-10-15] MEDS: APIXABAN 2.5 MG TABLET PO (09:58)
[2021-10-15] MEDS: dilTIAZem CD 240 MG Capsule PO (09:58)
[2021-10-15] MEDS: Metoprolol Tartrate 100 MG Tablet PO (09:58)
[2021-10-15] MEDS: Lisinopril 40 MG Tablet PO (09:59)
[2021-10-15] MEDS: Polyethylene Glycol 3350 17 GM PACKET PO (09:59)
[2021-10-15] MEDS: Ceftriaxone 1 GM/50 ML BAG IV (10:03)
--- NOTE | 2021-10-15 11:43 | PCM.TXEXTCAR ---
Documented by User: Pat Agarwal NP, DOCUMENT IMPROVEMENT SPECIALIST-C 10/15/21 12:00 Diet Diet Order/Speech Therapy: 10/09/21 15:45 Diet: Cardiac: Calorie-Controlled Food consistency:: Regular Liquid Consistency:: Regular/Thin How many daily calories?: 1800 calorie Routine Orders/Code Status Enema Type: Fleetz Enema Frequency: Daily PRN Suppository Type: Dulcolax 10mg Suppository Frequency: Daily PRN O2 Liters per Minute: 4-6 O2 Frequency: Continuous (ween as tolerated) Keep PO Greater than or Equal to (%): 90 Routine Lab Work: - (weekly CBC, BMP) Code Status: Full Code Suggestions for Active Care Change Position every (hours): 2 Times a day to sit in chair: 3 Therapies Physical Therapy: Eval and Treat Occupational Therapy: Eval and Treat Problem/Diagnosis (1) LLL pneumonia: Status: Acute Code(s): J18.9 - Pneumonia, unspecified organism Allergies/Procedures Done in Hospital Allergies Sulfa (Sulfonamide Antibiotics) Allergy (Verified 10/09/21 11:49) [facility] Procedures: None Type of Care/Length of Stay Estimated LOS: Convalescent Care Less Than 30 days Type of Care Needed: Skilled Rehab Potential: Fair Prognosis: Fair Additional Orders/Day of Discharge H&P will serve as current which was dated: 10/09/21 Day of Discharge: 10/15/21 Dietary and Speech Recommendations Dietitian Recommendations/Changes: 1800 calorie controlled, cardiac diet Discharge Plan Admission Admit Date/Time: 10/09/21 14:28 Primary Reason for Your Visit: Respiratory failure, pneumonia Attending Provider: Raul Busby Primary Care Provider: Alexy Douglas Chi Consulting Providers: Ephraim Oneil ; Martin Davies ; Roosevelt Tesfaye Discharge Orders/Prescriptions Prescriptions: New prednisone 20 mg Tablet 40 mg PO BREAKFAST 5 Days Qty: 10 0RF amoxicillin-pot clavulanate 500-125 mg Tablet 500 mg PO BIDCM 3 Days Qty: 5 0RF ipratropium bromide 0.02 % Solution 0.5 mg inhalation Q4H.RT Qty: 0 0RF Continued insulin degludec 100 unit/mL (3 mL) insulin pen 40 unit SC DAILY levothyroxine 200 mcg tablet 225 mcg PO DAILY cholecalciferol (vitamin D3) 325 mcg (13,000 unit) capsule 325 mcg PO DAILY potassium chloride 20 mEq tablet extended release 20 meq PO DAILY Gemtesa 75 mg tablet 75 mg PO DAILY Eliquis 2.5 mg tablet 2.5 mg PO DAILY phenazopyridine 100 mg tablet 100 mg PO TID PRN PRN (Reason: .) Label Comments: TAKE 1 TABLET BY MOUTH THREE TIMES DAILY NEEDED metoprolol tartrate 100 mg tablet 100 mg PO DAILY diltiazem HCl 240 mg capsule,extended release 24hr 240 mg PO BID glimepiride 1 MG tablet 1 mg PO DAILY benazepril 40 mg tablet 40 mg PO DAILY rosuvastatin 20 mg tablet 20 mg PO QHS Qty: 30 11RF Hold Instructions: Home Medication placed on hold at Doctor's office Changed furosemide [Lasix] 40 mg tablet 40 mg PO DAILY Qty: 60 11RF Rx Instructions: take once daily and as needed for edema Referrals / Follow Up: Zenobia Marie DO [Med Staff - Consulting] - See Referral Note (Please consult on TCU for diuretic management) Alexy Douglas Chi, MD [Primary Care Provider] - In 1 Week Lovely Linda NP, DOCUMENT IMPROVEMENT SPECIALIST-C [Nurse Practitioner] - See Referral Note (As scheduled 10/30/21) Disposition Disposition (needs filled in before D/C Order can be placed): Senior Living Facility Documented by User: Dr. Raul Busby MD 10/15/21 13:20 Routine Orders/Code Status Suppository Type: Dulcolax 10mg Suppository Frequency: Daily PRN Therapies Weight Bearing: Weight bearing as tolerated Extremity Affected:: Bilateral Lower Problem/Diagnosis (1) LLL pneumonia: Status: Acute Code(s): J18.9 - Pneumonia, unspecified organism Allergies/Procedures Done in Hospital Allergies Sulfa (Sulfonamide Antibiotics) Allergy (Verified 10/09/21 11:49) [facility] Discharge Plan Admission Admit Date/Time: 10/09/21 14:28 Primary Reason for Your Visit: Respiratory failure, pneumonia Attending Provider: Raul Busby Primary Care Provider: Alexy Douglas Chi Consulting Providers: Ephraim Oneil ; Martin Davies ; Roosevelt Tesfaye Discharge Orders/Prescriptions Prescriptions: New prednisone 20 mg Tablet 40 mg PO BREAKFAST 5 Days Qty: 10 0RF amoxicillin-pot clavulanate 500-125 mg Tablet 500 mg PO BIDCM 3 Days Qty: 5 0RF ipratropium bromide 0.02 % Solution 0.5 mg inhalation Q4H.RT Qty: 0 0RF Continued insulin degludec 100 unit/mL (3 mL) insulin pen 40 unit SC DAILY levothyroxine 200 mcg tablet 225 mcg PO DAILY cholecalciferol (vitamin D3) 325 mcg (13,000 unit) capsule 325 mcg PO DAILY potassium chloride 20 mEq tablet extended release 20 meq PO DAILY Gemtesa 75 mg tablet 75 mg PO DAILY Eliquis 2.5 mg tablet 2.5 mg PO DAILY phenazopyridine 100 mg tablet 100 mg PO TID PRN PRN (Reason: .) Label Comments: TAKE 1 TABLET BY MOUTH THREE TIMES DAILY NEEDED metoprolol tartrate 100 mg tablet 100 mg PO DAILY diltiazem HCl 240 mg capsule,extended release 24hr 240 mg PO BID glimepiride 1 MG tablet 1 mg PO DAILY benazepril 40 mg tablet 40 mg PO DAILY rosuvastatin 20 mg tablet 20 mg PO QHS Qty: 30 11RF Hold Instructions: Home Medication placed on hold at Doctor's office Changed furosemide [Lasix] 40 mg tablet 40 mg PO DAILY Qty: 60 11RF Rx Instructions: take once daily and as needed for edema Referrals / Follow Up: Zenobia Marie DO [Med Staff - Consulting] - See Referral Note (Please consult on TCU for diuretic management) Alexy Douglas Chi, MD [Primary Care Provider] - In 1 Week Lovely Linda NP, DOCUMENT IMPROVEMENT SPECIALIST-C [Nurse Practitioner] - See Referral Note (As scheduled 10/30/21) Disposition Disposition (needs filled in before D/C Order can be placed): Senior Living Facility
--- NOTE | 2021-10-15 11:57 | PCM.DC.SUM ---
Documented by User: Pat Agarwal NP, SANITATION MANAGER-C 10/15/21 12:00 Providers Date of Admission: 10/09/21 Date of Discharge: 10/15/21 Primary Care Physician: Dr. Alexy Douglas MD Consultations 10/11/21 13:33 Consult: Cardiology Routine Consulting Provider: Roosevelt Tesfaye Reason for Consult: Afib with RVR EMERGENT Consult: No MD Notified: Yes Date Notified: 10/11/21 Time Notified: 13:33 Method of Notification: Verbal Reason For Visit: PNEUMONIA, SEPSIS, AFIB RVR Diagnosis Discharge Diagnosis (1) LLL pneumonia: Status: Acute Code(s): J18.9 - Pneumonia, unspecified organism Plan 1.? Acute hypoxic respiratory failure secondary to acute on chronic heart failure with preserved ejection fraction and left lower lobe pneumonia-remains on 6 L nasal cannula.? Continue supplemental oxygen to maintain O2 sat above 90%.? Wean as tolerated. 2.? Acute on chronic heart failure with preserved ejection fraction-BNP 498.? Chest x-ray with small left pleural effusion.? Strict I&O.? Daily weight.? Echocardiogram 10/02/2021 demonstrated an EF of 60%.? DC further IV Lasix given increasing creatinine.? 3.? Left lower lobe pneumonia-IV azithromycin and IV Rocephin.? Albuterol DuoNeb aerosols.? Blood culture pending.? Obtain sputum culture. 4. SABRINA on CKD stage III-hold nephrotoxic regimen. If creatinine further trends up, will consult nephrology. Obtain urine studies. 5. Paroxysmal atrial fibrillation with RVR-history of DC cardioversion attempt March 2019.? Cardiology following.?Rate controlled, continue metoprolol, Cardizem, Eliquis. 6. Hypertension- stable, continue current regimen. 7. Hyperlipidemia-continue statin. 8. Hypothyroidism-continue Synthroid regimen. 9. Type 2 diabetes [id number] with sliding scale insulin.? Continue home insulin regimen. DVT prophylaxis-Eliquis This patient was seen by Pat Agarwal NP-C under the supervision of Dr. Busby. Discharge planning: TCU pending medically stable. Time spent examining patient, reviewing data and subsequent management of care: 12 minutes Medications at Discharge Home Medications insulin degludec 100 unit/mL (3 mL) subcutaneous pen 40 unit subcut DAILY blood sugar 05/18/20 cholecalciferol (vitamin D3) 325 mcg (13,000 unit) capsule 325 mcg PO DAILY supplement 06/14/21 levothyroxine 200 mcg tablet 225 mcg PO DAILY thyroid 06/14/21 potassium chloride 20 mEq tablet,extended release 20 meq PO DAILY supplement 06/14/21 vibegron 75 mg tablet (Gemtesa) 75 mg PO DAILY . 06/14/21 rosuvastatin 20 mg tablet 20 mg PO QHS cholesterol #30 tabs 08/04/21 apixaban 2.5 mg tablet (Eliquis) 2.5 mg PO DAILY blood thinner 10/09/21 benazepril 40 mg tablet 40 mg PO DAILY blood pressure 10/09/21 diltiazem HCl 240 mg capsule,extended release 24 hr 240 mg PO BID heart 10/09/21 glimepiride 1 mg tablet 1 mg PO DAILY blood sugar 10/09/21 metoprolol tartrate 100 mg tablet 100 mg PO DAILY blood pressure 10/09/21 phenazopyridine 100 mg tablet 100 mg PO TID PRN PRN . 10/09/21 amoxicillin 500 mg-potassium clavulanate 125 mg tablet 500 mg PO BIDCM 3 days #5 tabs 10/15/21 furosemide 40 mg tablet (Lasix) 40 mg PO DAILY #60 tabs 10/15/21 ipratropium bromide 0.02 % solution for inhalation 0.5 mg (2.5 mL) inhalation Q4H.RT #0 mL 10/15/21 prednisone 20 mg tablet 40 mg PO BREAKFAST 5 days #10 tabs 10/15/21 Hospital Course Operations None Procedures None Summary of Care Provided Hospital Course: Patient is an 81-year-old female admitted 10/09/2021 due to shortness of breath. 1.? Acute hypoxic respiratory failure secondary to acute on chronic heart failure with preserved ejection fraction and left lower lobe pneumonia-remains Continue supplemental oxygen to maintain O2 sat above 90%.? Wean as tolerated. Will need home oxygen testing prior to discharge from TCU. 2.? Acute on chronic heart failure with preserved ejection fraction-BNP 498.? Chest x-ray with small left pleural effusion.? Echocardiogram 10/02/2021 demonstrated an EF of 60%.? Further IV Lasix held due to increasing creatinine. Resume home oral Lasix as noted below. 3.? Left lower lobe pneumonia-IV azithromycin and IV Rocephin during admission, transition to Augmentin at discharge to complete course.? 4. SABRINA on CKD stage III-creatinine trending down. Resume Lasix 10/16/2021 and trend BMP daily. Consult nephrology at TCU. Patient follows with Dr. Marie. 5. Paroxysmal atrial fibrillation with RVR-history of DC cardioversion attempt March 2019.? Cardiology following.?Rate controlled, continue metoprolol, Cardizem, Eliquis. 6. Hypertension- stable, continue current regimen. 7. Hyperlipidemia-continue statin. 8. Hypothyroidism-continue Synthroid regimen. 9. Type 2 diabetes [id number] with sliding scale insulin.? Continue home insulin regimen. Physical Exam Const alert, oriented x3 and no apparent distress Orientation / Consciousness: awake, oriented to person, oriented to place and oriented to time HEENT normocephalic and moist oral mucous membranes Eyes PERRL, EOMs intact bilaterally and conjunctivae normal Neck no lymphadenopathy Resp clear to auscultation bilaterally Auscultation: diminished lung sounds Cardio regular rate and no murmurs Cardio Narrative: A. fib, rate controlled Peripheral Pulses: pulses 2+ throughout GI normal to inspection, nondistended, normoactive bowel sounds, non-tender and non-distended Extremity normal to inspection Skin no rashes or lesions noted Lesions: no lesions Rashes: no rashes Trauma: no lacerations or abrasions Neuro CN's II-XII intact bilaterally, no focal motor deficits, no sensory deficits noted and deep tendon reflexes 2+ bilaterally Psych mental status grossly normal and affect normal Patient seen and examined prior to discharge. Physical assessment as noted above. Patient is stable for discharge with follow up recommendations as noted above. This patient was seen by WILDER Brown under the supervision of Dr. Busby. Time spent examining patient, reviewing data and subsequent management of care: 25 minutes Weight / BMI Weight Weight: 251 lb 1.704 oz Body Mass Index (BMI) 38.1 ABG / Lab / Microbiology Data Result Diagrams: 10/15/21 06:41 10/15/21 06:41 Laboratory: Laboratory Results - last 24 hr 10/14/21 11:40: POC Glucose 309 H 10/14/21 15:57: POC Glucose 316 H 10/14/21 21:19: POC Glucose 393 H 10/15/21 06:31: POC Glucose 386 H 10/15/21 06:41: WBC 15.6 H, RBC 4.01 L, Hgb 11.6 L, Hct 36.0 L, MCV 89.8, MCH 28.9, MCHC 32.2, RDW Std Deviation 47.8 H, RDW Coeff of Sudha 14.6, Plt Count 435, MPV 10.4, Immature Gran % (Auto) 3.400 H, Neut % (Auto) 88.1 H, Lymph % (Auto) 4.4 L, Jerome % (Auto) 3.8, Eos % (Auto) 0.0, Baso % (Auto) 0.3, Absolute Neuts (auto) 13.8 H, Absolute Lymphs (auto) 0.68 L, Nucleated RBC % 0 10/15/21 06:41: Sodium 131 L, Potassium 4.3, Chloride 96 L, Carbon Dioxide 28.0, Anion Gap 7, BUN 55 H, Creatinine 1.96 H, Estim Creat Clear Calc 22.32, Est GFR (MDRD) Af Amer 31 L, Est GFR (MDRD) Non-Af 26 L, BUN/Creatinine Ratio 28.1 H, Glucose 414 H, Calcium 10.2 H Microbiology: Microbiology 10/09/21 12:55 Blood Culture (Wb) - Anticubital Right Blood Culture - Final No growth in 5 days. 10/09/21 13:00 Blood Culture (Wb) - Right Hand Blood Culture - Final No growth in 5 days. 10/09/21 17:45 Urine, Clean Catch Urine Culture - Final Mixed Gram Pos & Gram Neg Org 10/09/21 12:50 Nasal Secretion SARS-CoV-2 Antigen (Rapid) - Final Meaningful Use Info Meaningful Use Diagnoses (Choose all that apply): CHF CHF JIMI/ARB ordered at discharge?: No Reason JIMI/ARB not ordered?: Worsening renal disease Documented LVEF (%): 60 Discharge Plan Admission Admit Date/Time: 10/09/21 14:28 Primary Reason for Your Visit: Respiratory failure, pneumonia Attending Provider: Raul Busby Primary Care Provider: Alexy Douglas Chi Consulting Providers: Ephraim Oneil ; Martin Davies ; Roosevelt Tesfaye Discharge Orders/Prescriptions Prescriptions: New prednisone 20 mg Tablet 40 mg PO BREAKFAST 5 Days Qty: 10 0RF amoxicillin-pot clavulanate 500-125 mg Tablet 500 mg PO BIDCM 3 Days Qty: 5 0RF ipratropium bromide 0.02 % Solution 0.5 mg inhalation Q4H.RT Qty: 0 0RF Continued insulin degludec 100 unit/mL (3 mL) insulin pen 40 unit SC DAILY levothyroxine 200 mcg tablet 225 mcg PO DAILY cholecalciferol (vitamin D3) 325 mcg (13,000 unit) capsule 325 mcg PO DAILY potassium chloride 20 mEq tablet extended release 20 meq PO DAILY Gemtesa 75 mg tablet 75 mg PO DAILY Eliquis 2.5 mg tablet 2.5 mg PO DAILY phenazopyridine 100 mg tablet 100 mg PO TID PRN PRN (Reason: .) Label Comments: TAKE 1 TABLET BY MOUTH THREE TIMES DAILY NEEDED metoprolol tartrate 100 mg tablet 100 mg PO DAILY diltiazem HCl 240 mg capsule,extended release 24hr 240 mg PO BID glimepiride 1 MG tablet 1 mg PO DAILY benazepril 40 mg tablet 40 mg PO DAILY rosuvastatin 20 mg tablet 20 mg PO QHS Qty: 30 11RF Hold Instructions: Home Medication placed on hold at Doctor's office Changed furosemide [Lasix] 40 mg tablet 40 mg PO DAILY Qty: 60 11RF Rx Instructions: take once daily and as needed for edema Referrals / Follow Up: Zenobia Marie DO [Med Staff - Consulting] - See Referral Note (Please consult on TCU for diuretic management) Alexy Douglas Chi, MD [Primary Care Provider] - In 1 Week Lovely Linda NP, SANITATION MANAGER-C [Nurse Practitioner] - See Referral Note (As scheduled 10/30/21) Disposition Disposition (needs filled in before D/C Order can be placed): Jail Facility Documented by User: Dr. Raul Busby MD 10/15/21 14:28 Providers Date of Admission: 10/09/21 Reason For Visit: PNEUMONIA, SEPSIS, AFIB RVR Diagnosis Discharge Diagnosis (1) LLL pneumonia: Status: Acute Code(s): J18.9 - Pneumonia, unspecified organism Medications at Discharge Home Medications insulin degludec 100 unit/mL (3 mL) subcutaneous pen 40 unit subcut DAILY blood sugar 05/18/20 cholecalciferol (vitamin D3) 325 mcg (13,000 unit) capsule 325 mcg PO DAILY supplement 06/14/21 levothyroxine 200 mcg tablet 225 mcg PO DAILY thyroid 06/14/21 potassium chloride 20 mEq tablet,extended release 20 meq PO DAILY supplement 06/14/21 vibegron 75 mg tablet (Gemtesa) 75 mg PO DAILY . 06/14/21 rosuvastatin 20 mg tablet 20 mg PO QHS cholesterol #30 tabs 08/04/21 apixaban 2.5 mg tablet (Eliquis) 2.5 mg PO DAILY blood thinner 10/09/21 benazepril 40 mg tablet 40 mg PO DAILY blood pressure 10/09/21 diltiazem HCl 240 mg capsule,extended release 24 hr 240 mg PO BID heart 10/09/21 glimepiride 1 mg tablet 1 mg PO DAILY blood sugar 10/09/21 metoprolol tartrate 100 mg tablet 100 mg PO DAILY blood pressure 10/09/21 phenazopyridine 100 mg tablet 100 mg PO TID PRN PRN . 10/09/21 amoxicillin 500 mg-potassium clavulanate 125 mg tablet 500 mg PO BIDCM 3 days #5 tabs 10/15/21 furosemide 40 mg tablet (Lasix) 40 mg PO DAILY #60 tabs 10/15/21 ipratropium bromide 0.02 % solution for inhalation 0.5 mg (2.5 mL) inhalation Q4H.RT #0 mL 10/15/21 prednisone 20 mg tablet 40 mg PO BREAKFAST 5 days #10 tabs 10/15/21 Hospital Course Summary of Care Provided Hospital Course: Patient is an 81-year-old female admitted 10/09/2021 due to shortness of breath. 1.? Acute hypoxic respiratory failure secondary to acute on chronic heart failure with preserved ejection fraction and left lower lobe pneumonia-remains Continue supplemental oxygen to maintain O2 sat above 90%.? Wean as tolerated. Will need home oxygen testing prior to discharge from TCU. 2.? Acute on chronic heart failure with preserved ejection fraction-BNP 498.? Chest x-ray with small left pleural effusion.? Echocardiogram 10/02/2021 demonstrated an EF of 60%.? Further IV Lasix held due to increasing creatinine. Resume home oral Lasix as noted below. 3.? Left lower lobe pneumonia-IV azithromycin and IV Rocephin during admission, transition to Augmentin at discharge to complete course.? 4. SABRINA on CKD stage III-creatinine trending down. Resume Lasix 10/16/2021 and trend BMP daily. Consult nephrology at TCU. Patient follows with Dr. Marie. 5. Paroxysmal atrial fibrillation with RVR-history of DC cardioversion attempt March 2019.? Cardiology following.?Rate controlled, continue metoprolol, Cardizem, Eliquis. 6. Hypertension- stable, continue current regimen. 7. Hyperlipidemia-continue statin. 8. Hypothyroidism-continue Synthroid regimen. 9. Type 2 diabetes [id number] with sliding scale insulin.? Continue home insulin regimen. This patient was seen in conjunction with SANITATION MANAGER, Pat.? I have independently interviewed and examined the patient and reviewed pertinent history, examination findings, laboratory and plan of management.? I have? reviewed the note and agree with the documented findings with the few? additional points. In brief, patient is admitted for shortness of breath and chest pain? for 2 days.? Patient had recent UTI for which she was started on antibiotic but she quit taking them.? In addition was found to A. fib with RVR. During hospital course she developed a COPD exacerbation from left lower lobe pneumonia. 1.? A. fib with RVR: Patient started on Cardizem drip.? Continue oral metoprolol. 10/12: Heart rate is controlled.? Tapering off Cardizem drip.? Continue Cardizem CD 240 mg every 12 hourly 2.? Acute on chronic HFpEF: Patient has worsening of dyspnea on exertion to dyspnea at rest. BNP elevated. Electroencephalograph Technologist started on Lasix.? Continue beta-triny. 10/12 on furosemide 20 mg IV twice daily. 3.? Left lower lobe pneumonia: On IV antibiotic.? Ceftriaxone and Zithromax. 4. COPD exacerbation from left lower lobe pneumonia: Continue bronchodilator, steroid, incentive spirometry Mucinex and Pep in TCU. 5. Acute hypoxic respiratory failure due to acute on chronic HFpEF, left lower lobe pneumonia and COPD exacerbation: Oxygen therapy, incentive spirometry. ? Other comorbidities include diabetes mellitus type 2, hypertension, CKD stage IIIb, dyslipidemia, hypothyroidism, class II obesity BMI 30.2 PG per metered square, history of breast cancer in remission, COPD stage II 5.? DVT prophylaxis: On chronic Eliquis I have discussed my assessment with Pat SAUCEDO and orders have been reviewed. Discharge medication reconciliation done. Discharge follow-up instructions completed. Discharge process discussed with the patient and all questions were answered to patient's satisfaction. Total time spent, exact 35 minutes on discharge meds reconciliation, examination, coordination of care with nurses and ancillary staff, review of imaging and blood test and discussion with the patient on follow-up instructions. Physical Exam Const alert, oriented x3 and no apparent distress Orientation / Consciousness: awake, oriented to person, oriented to place and oriented to time HEENT normocephalic and moist oral mucous membranes Eyes PERRL, EOMs intact bilaterally and conjunctivae normal Neck no lymphadenopathy Resp clear to auscultation bilaterally Auscultation: diminished lung sounds Cardio regular rate and no murmurs Cardio Narrative: A. fib, rate controlled Peripheral Pulses: pulses 2+ throughout GI normal to inspection, nondistended, normoactive bowel sounds, non-tender and non-distended Extremity normal to inspection Skin no rashes or lesions noted Lesions: no lesions Rashes: no rashes Trauma: no lacerations or abrasions Neuro CN's II-XII intact bilaterally, no focal motor deficits, no sensory deficits noted and deep tendon reflexes 2+ bilaterally Psych mental status grossly normal and affect normal Patient seen and examined prior to discharge. Physical assessment as noted above. Patient is stable for discharge with follow up recommendations as noted above. This patient was seen by WILDER Brown under the supervision of Dr. Busby. Time spent examining patient, reviewing data and subsequent management of care: 25 minutes Physical Exam Narrative Seen and examined. Patient on 5 L of oxygen. Subjectively her shortness of breath is improving. Continue bronchodilator IV Solu-Medrol which will be transitioned to prednisone in TCU. Incentive spirometry, guaifenesin and Pep. Physical exam General: Alert, Oriented x3, Cooperative HEENT: Atraumatic, PERRLA, EOMI, Normocephalic Oral: No Gingival or Mucosal Lesions/ Ulcerations Neck: Supple, No JVD, Negative Carotid Bruits Lungs: Air entry diminished in bilateral lung bases. Bilateral rhonchi in lower lobes. Hypoxia. No respiratory distress Cardiovascular: A. fib, normal S1, Normal S2, No murmurs Abdomen: Bowel Sounds Present, Soft, Non Tender, Non-Distended : No renal angle tenderness. No suprapubic tenderness. Extremities: No edema, Capillary Refill Less than 3 Seconds Skin: No rashes, No breakdown Musculoskeletal: No Tenderness to Palpation of Joints or Extremities, muscle strength 4/5 at major joints Neurological: Cranial nerves II-XII grossly intact, DTR 2+/4 and Symmetrical Psych/Mental Status: Flat affect ABG / Lab / Microbiology Data Result Diagrams: 10/15/21 06:41 10/15/21 06:41 Discharge Plan Admission Admit Date/Time: 10/09/21 14:28 Primary Reason for Your Visit: Respiratory failure, pneumonia Attending Provider: Raul Busby Primary Care Provider: Alexy Douglas Chi Consulting Providers: Ephraim Oneil ; Martin Davies ; Roosevelt Tesfaye Discharge Orders/Prescriptions Prescriptions: New prednisone 20 mg Tablet 40 mg PO BREAKFAST 5 Days Qty: 10 0RF amoxicillin-pot clavulanate 500-125 mg Tablet 500 mg PO BIDCM 3 Days Qty: 5 0RF ipratropium bromide 0.02 % Solution 0.5 mg inhalation Q4H.RT Qty: 0 0RF Continued insulin degludec 100 unit/mL (3 mL) insulin pen 40 unit SC DAILY levothyroxine 200 mcg tablet 225 mcg PO DAILY cholecalciferol (vitamin D3) 325 mcg (13,000 unit) capsule 325 mcg PO DAILY potassium chloride 20 mEq tablet extended release 20 meq PO DAILY Gemtesa 75 mg tablet 75 mg PO DAILY Eliquis 2.5 mg tablet 2.5 mg PO DAILY phenazopyridine 100 mg tablet 100 mg PO TID PRN PRN (Reason: .) Label Comments: TAKE 1 TABLET BY MOUTH THREE TIMES DAILY NEEDED metoprolol tartrate 100 mg tablet 100 mg PO DAILY diltiazem HCl 240 mg capsule,extended release 24hr 240 mg PO BID glimepiride 1 MG tablet 1 mg PO DAILY benazepril 40 mg tablet 40 mg PO DAILY rosuvastatin 20 mg tablet 20 mg PO QHS Qty: 30 11RF Hold Instructions: Home Medication placed on hold at Doctor's office Changed furosemide [Lasix] 40 mg tablet 40 mg PO DAILY Qty: 60 11RF Rx Instructions: take once daily and as needed for edema Referrals / Follow Up: Zenobia Marie DO [Med Staff - Consulting] - See Referral Note (Please consult on TCU for diuretic management) Alexy Douglas Chi, MD [Primary Care Provider] - In 1 Week Lovely Linda NP, SANITATION MANAGER-C [Nurse Practitioner] - See Referral Note (As scheduled 10/30/21) Disposition Disposition (needs filled in before D/C Order can be placed): Jail Facility Charges/Coding Visit Charges Inpatient E&M: 47853 Disch Hosp
[2021-10-15 12:25] LABS: Bedside Glucose 398 mg/dL (74-106)
[2021-10-15 14:16] LABS: Urine Sodium 37 mmol/L (Not Establ.)
--- NOTE | 2021-10-15 14:50 | NURSING ---
Report called to FLETCHER Willson in TCU. Pt ready to transfer to TCU.
[2021-10-15 15:01] LABS: Bedside Glucose 375 mg/dL (74-106)
== END 2021-10-15 15:16 | DRG 871 ==
LOC: ED 13:46 → PCU 14:24
PROVIDERS: Internal Medicine; Nurse Practitioner Family; Admitting Provider Family Medicine; Emergency Provider Emergency Medicine; PCP Family Medicine Geriatric Medicine; Visit Provider Internal Medicine
DX: A41.9 Sepsis, unspecified organism (principal); J18.9 Pneumonia, unspecified organism; J96.01 Acute respiratory failure with hypoxia; I50.33 Acute on chronic diastolic (congestive) heart failure; N17.9 Acute kidney failure, unspecified; J44.0 Chronic obstructive pulmonary disease with (acute) lower respiratory infection; I13.0 Hypertensive heart and chronic kidney disease with heart failure and stage 1 through stage 4 chronic kidney disease, or unspecified chronic kidney disease; J44.1 Chronic obstructive pulmonary disease with (acute) exacerbation; N39.0 Urinary tract infection, site not specified; I27.21 Secondary pulmonary arterial hypertension; E11.22 Type 2 diabetes mellitus with diabetic chronic kidney disease; E11.65 Type 2 diabetes mellitus with hyperglycemia; I48.0 Paroxysmal atrial fibrillation; N18.32 Chronic kidney disease, stage 3b; Z79.4 Long term (current) use of insulin; E78.5 Hyperlipidemia, unspecified; E03.9 Hypothyroidism, unspecified; Z20.822 Contact with and (suspected) exposure to COVID-19; E66.9 Obesity, unspecified; Z68.38 Body mass index [BMI] 38.0-38.9, adult; Z79.01 Long term (current) use of anticoagulants; Z79.890 Hormone replacement therapy; Z79.899 Other long term (current) drug therapy; Z85.3 Personal history of malignant neoplasm of breast; Z87.891 Personal history of nicotine dependence
CPT/HCPCS: 36415; 71045; 80048; 80053; 81001; 82570; 82962; 83605; 83735; 83880; 84300; 84443; 84484; 85025; 87040; 87086; 87088; 87426; 87811; 93005; 94640; 94667; 94668; 94762; 97110; 97162; 97166; 97530; 97535; 99285; J7030; J7050; A4216; J0696; J1940; J2405

== ENCOUNTER 2021-10-15 15:20 | Inpatient (IN) | payer MEDICARE, OTHER, SELFPAY ==
[2021-10-15 16:13] VITALS: BP 151/80; PULSE 89; RESP 18; TEMP 35.9; O2SAT 92; BMI 39.9
[2021-10-15] MEDS: Amox/Clavulanate 500 MG Tablet PO (17:58)
[2021-10-15] MEDS: dilTIAZem CD 240 MG Capsule PO (17:58)
[2021-10-15 18:20] LABS: Bedside Glucose 395 mg/dL (74-106)
[2021-10-15 18:41] VITALS: BP 151/80; PULSE 90
[2021-10-15] MEDS: Metoprolol Tartrate 100 MG Tablet PO (18:41)
[2021-10-15] MEDS: Insulin Lispro 100 UNIT/ML INSULN.PEN 10 UNIT SC (18:41)
[2021-10-15] MEDS: Ipratropium 0.5 MG/2.5 ML SOLUTION INHALATION ×2 (19:33→23:00)
[2021-10-15 19:37] VITALS: PULSE 86; RESP 16; O2SAT 92
--- NOTE | 2021-10-15 19:52 | HP.PCM_ITS ---
HPI - General General Date of Admission: 10/15/21 Date of Service: 10/16/21 Chief Complaint: Here for rehab. HPI Narrative 10/02/2021 Echo Normal LV size. Left ventricular systolic function normal. EF 60%. 10/09/2021 TONJA SÁNCHEZ, is a 81 Female who presents to [facility] Emergency Department with chest pain. Chest pain, shortness of breath x 2 days, feels miserable. Nausea last night, constant left sided chest pain. Chest X-ray showed left lower lobe pneumonia, pleural effusion. WBC 19.8. Cardizem drip for atrial fibrillation with RVR. Lactate 2.5. Rocephin, Zithromax, IV fluids for community acquired pneumonia. 10/09/2021 Admit to Hospital. Rocephin, Zithromax for community acquired pneumonia. Cardizem drip, Metoprolol, Eliquis for atrial fibrillation with RVR. 10/10/2021 Heart rate improved. Hold oral blood pressure medications, while on Cardizem drip. 10/11/2021 Cardizem drip stopped yesterday. Cardizem po twice daily restored. 10/12/2021 Lasix IV for acute on chronic diastolic congestive heart failure. Rocephin IV, Zithromax IV, Albuterol, Duoneb for left lower lobe pneumonia. 10/13/2021 Fatigue, shortness of breath after therapy. Oxygen 5 liters per nasal cannula, wean as tolerated. Blood cultures pending. 10/14/2021 Oxygen 6 liters per nasal cannula, wean as tolerated. Lasix IV stopped due to rising creatinine. 10/15/2021 Antibiotics changed to Augmentin for 3 more days. Prednisone 20mg daily x 5 days. 10/15/2021 Admit to TCU with debility, here for rehabilitation, strengthening, prior to discharge home alone. [facility] Medical History Actinic keratosis Atrial fibrillation BMI 39.0-39.9,adult Breast cancer Chronic diastolic (congestive) heart failure CKD (chronic kidney disease) stage 3, GFR 30-59 ml/min COPD (chronic obstructive pulmonary disease) Diastolic dysfunction Disc degeneration, lumbar DMII (diabetes mellitus, type 2) Erosion of bladder suspension mesh Essential (primary) hypertension Fatigue Former smoker Hypersomnia Hypertension Hypothyroidism Hypoxia Longstanding persistent atrial fibrillation Non-rheumatic tricuspid valve insufficiency Obesity Right hip pain Secondary pulmonary arterial hypertension Skin cancer Skin cancer, basal cell Skin lesion Stage 2 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 SHAKIRA (stress urinary incontinence, female) Tobacco dependence in remission UTI (urinary tract infection) Home Medications insulin degludec 100 unit/mL (3 mL) subcutaneous pen 40 unit subcut DAILY blood sugar 05/18/20 [History Last Taken 10/08/21] cholecalciferol (vitamin D3) 325 mcg (13,000 unit) capsule 325 mcg PO DAILY supplement 06/14/21 [History Last Taken 10/08/21] levothyroxine 200 mcg tablet 225 mcg PO DAILY thyroid 06/14/21 [History Last Taken 10/08/21] potassium chloride 20 mEq tablet,extended release 20 meq PO DAILY supplement 06/14/21 [History Last Taken 10/08/21] vibegron 75 mg tablet (Gemtesa) 75 mg PO DAILY OVERACTIVE BLADDER 06/14/21 [History Last Taken 10/08/21] rosuvastatin 20 mg tablet 20 mg PO QHS cholesterol #30 tabs 08/04/21 [Rx Last Taken 10/08/21] apixaban 2.5 mg tablet (Eliquis) 2.5 mg PO DAILY blood thinner 10/09/21 [History Last Taken 10/08/21] benazepril 40 mg tablet 40 mg PO DAILY blood pressure 10/09/21 [History Last Taken 10/08/21] diltiazem HCl 240 mg capsule,extended release 24 hr 240 mg PO BID heart 10/09/21 [History Last Taken 10/08/21] glimepiride 1 mg tablet 1 mg PO DAILY blood sugar 10/09/21 [History Last Taken 10/08/21] metoprolol tartrate 100 mg tablet 100 mg PO DAILY blood pressure 10/09/21 [History Last Taken 10/08/21] phenazopyridine 100 mg tablet 100 mg PO TID PRN PRN URINARY SYMPTOMS 10/09/21 [History Last Taken Unknown] amoxicillin 500 mg-potassium clavulanate 125 mg tablet 500 mg PO BIDCM ANTIBIOTIC 10/15/21 [History Last Taken Unknown] ipratropium bromide 0.02 % solution for inhalation 0.5 mg inhalation Q4H.RT BREATHING 10/15/21 [History Last Taken 10/15/21 10:40] prednisone 20 mg tablet 40 mg PO BREAKFAST STEROID 10/15/21 [History Last Taken Unknown] Allergy/AdvReac Type Severity Reaction Status Date / Time Sulfa (Sulfonamide Allergy PEELING Verified 10/09/21 11:49 Antibiotics) RASH Family History Mother Colon cancer Cancer skin, bladder Daughter Cancer Thyroid Sister CAD (coronary artery disease) Surgical History History of cardioversion (03/20/19) History of excision of lesion History of hysterectomy History of left heart catheterization (05/31/14) History of partial mastectomy Hx of local excision of skin lesion Social History (Updated 10/15/21 @ 19:[address] Alexy Douglas MD) household members: none Smoking Status: Former smoker how long ago did patient quit smokin, 2p/day second hand exposure: Yes alcohol intake: current alcohol intake frequency: holidays/special occasions only substance use type: does not use ROS Constitutional Constitutional: Denies chills, fever(s) or weight gain ENT HEENT: Denies headache(s), nasal congestion or nasal discharge Cardiovascular Cardiovascular: Denies chest pain or palpitations Respiratory/Chest Respiratory/Chest: Denies cough, excessive phlegm production or shortness of breath with exertion Gastrointestinal Gastrointestinal: Denies abdominal pain, nausea or vomiting Genitourinary Genitourinary: Denies dysuria Musculoskeletal Musculoskeletal: Denies joint pain or joint swelling Integumentary Integumentary: Denies rash or wounds Neurologic Neurologic: Denies focal weakness, numbness or tingling Psychiatric Psychiatric: Denies anxiety, auditory hallucinations, depression, homicidal ideation or suicidal ideation Vital Signs Vital Signs Vital Signs: 10/15/21 16:13 10/15/21 18:41 10/15/21 19:37 Temperature 96.7 F L Temperature Source Temporal Pulse Rate 89 90 86 Respiratory Rate 18 16 Respiratory Pattern Normal Blood Pressure 151/80 H 151/80 H Blood Pressure Mean 103 Blood Pressure Source Monitor Blood Pressure Position Sitting Blood Pressure Location Left Arm Pulse Ox 92 92 Oxygen Delivery Method Nasal Cannula Nasal Cannula Oxygen Flow Rate (L/min) 5 5 Weight Weight: 118.977 kg Body Mass Index (BMI) 39.9 Physical Exam Const alert General Appearance: cooperative HEENT normocephalic Eyes PERRL and EOMs intact bilaterally Neck supple, no JVD and no carotid bruits Resp normal respiratory effort, normal air movement and clear to auscultation bilaterally Cardio regular rate and regular rhythm GI normal to inspection, nondistended, normoactive bowel sounds, non-tender and non-distended Extremity normal capillary refill General Extremity: Negative for edema Skin no rashes or lesions noted General Skin Exam: no breakdown Psych affect normal Appearance: appropriate Results Lab / Micro Data Result Diagrams: 10/16/21 05:16 10/16/21 05:16 Labs: Laboratory Results - last 24 hr 10/15/21 17:56: POC Glucose 395 H Assessment & Plan Assessment/Plan (1) Debility: (2) Acute respiratory failure with hypoxia: (3) Sepsis: (4) LLL pneumonia: (5) Atrial fibrillation with RVR: (6) Acute on chronic diastolic congestive heart failure: (7) Chronic kidney disease, stage 3b: (8) Hypertension: (9) Diabetes mellitus: (10) Hypothyroidism: (11) Overactive bladder: (12) Hyperlipidemia: PLAN: Plan 81 year old female with below past medical history hospitalized for sepsis, acute respiratory failure with hypoxia secondary to left lower lobe pneumonia, complicated by atrial fibrillation with rapid ventricular response, acute on chronic diastolic congestive heart failure, acute on chronic kidney failure, admitted to TCU with debility, here for rehabilitation, strengthening, prior to discharge home alone. * Debility - PT/OT. * Pain - Tylenol 1000mg q6h prn pain (1-10). * Bowel - Senna/colace 1 tablet bid, Dulcolax 10mg daily prn. * Adult immunization - Administer Pneumonia vaccine, covid19 vaccine, flu vaccine as appropriate. * DVT prophylaxis - Not necessary, already on Eliquis. * Left lower lobe pneumonia - Augmentin 500mg bid thru 10/18/2021. * Atrial fibrillation - Metoprolol 100mg bid, Cardizem 240mg bid, Eliquis 2.5mg bid. * Hyperlipidemia - Atorvastatin 40mg qhs. * Diabetes Mellitus II - Glimepiride 1mg daily, Glargine 40 units daily, add insulin as needed, resident on prednisone burst. Humalog 10 units tidac. * Shortness of breath - Atrovent 0.5m inhaled Q4H, Prednisone 40mg daily x 5 days. * Hypothyroidism - Levothyroxine 225mcg daily. * Coronary artery disease - Metoprolol 100mg bid, Lisinopril 40mg daily, Eliquis 2.5mg bid. * Overactive bladder - Myrbetriq 25mg daily. * Dysuria - AZO 95mg tid prn. * Hypokalemia - KCL 20meq daily.
[2021-10-15 20:00] VITALS: PULSE 81; RESP 16; O2SAT 93
[2021-10-15] MEDS: Bisacodyl 5 MG Tablet 10 MG PO (20:48)
[2021-10-15] MEDS: Atorvastatin Calcium 40 MG Tablet PO (20:48)
[2021-10-15] MEDS: Senna/Docusate Sodium 1 Tablet PO (20:49)
[2021-10-15 21:31] LABS: Bedside Glucose 442 mg/dL (74-106)
--- NOTE | 2021-10-15 21:44 | NURSING ---
Blood sugar still elevated, [address] at PM check. Notified Dr Douglas, verbal order for 15units humalog to be given now.
[2021-10-15] MEDS: Insulin Lispro 100 UNIT/ML INSULN.PEN 15 UNIT SC (22:29)
[2021-10-15 23:21] VITALS: PULSE 81; RESP 16
[2021-10-16] VITALS (9 sets, daily range): BP systolic 160–179; BP diastolic 74–80; PULSE 73–85; RESP 14–21; TEMP 36.5; O2SAT 92–94
[2021-10-16] MEDS: Ipratropium 0.5 MG/2.5 ML SOLUTION INHALATION ×3 (03:23→11:32)
[2021-10-16 05:37] LABS: Hematocrit 34.6 % (37-47); Hemoglobin 10.9 g/dL (12.0-15.0); Mean Corp Hgb Conc 31.5 g/dL (32-36); Mean Corpuscular Hgb 28.2 pg (27.0-32.0); Mean Corpuscular Volume 89.6 fL (81-99); Mean Platelet Vol. 9.9 fl (6.2-12.0); POSITIVE COUNT YES; POSITIVE MORPHOLOGY YES; Platelet Count 468 K/mm3 (150-450); RBC Distribution Width CV 14.8 % (11.6-14.6); RBC Distribution Width SD 48.6 fl (35.1-43.9); Red Blood Count 3.86 M/mm3 (4.2-5.4); White Blood Count 16.3 K/mm3 (4.4-11.0)
[2021-10-16 05:41] LABS: Differential Indicated MANUAL DIFF
[2021-10-16 06:03] LABS: Anion Gap 6 (5-15); BUN 63 mg/dL (7-18); BUN/Creat Ratio 35.4 RATIO (10-20); Calcium,Total 9.7 mg/dL (8.5-10.1); Chloride 98 mmol/L (98-107); Creatinine, Serum 1.78 mg/dL (0.55-1.02); EST Glomerular Filtration Rate 29 mL/min (>60); Est Glom Filt Rate - Afr Amer 35 mL/min (>60); Estimated Creatinine Clearance 24.58 ml/min; Glucose 265 mg/dL (74-106); Potassium 4.4 mmol/L (3.5-5.1); Sodium Level 135 mmol/L (136-145)
[2021-10-16 06:13] LABS: Anisocytosis 1+; Platelet Estimate SLT INC (ADEQ)
[2021-10-16 06:15] LABS: Absolute Lymphocyte Count 1.31 X10^3/uL (0.83-4.51); Absolute Neutrophil Count 13.1 X10^3/uL (2.0-7.7); Lymphocyte 8 % (19-41); Monocyte 3 % (0-10); Myelocyte 9 % (0-0); Neutrophil-Band 2 % (0-5); Neutrophil-Segmented 78 % (47-70); Total Cells Counted 100 (MANUAL DIFF)
[2021-10-16] MEDS: Lisinopril 40 MG Tablet PO (06:21)
[2021-10-16] MEDS: dilTIAZem CD 240 MG Capsule PO ×2 (06:21→17:19)
[2021-10-16] MEDS: Mirabegron 25 MG TAB.ER.24H PO (06:21)
[2021-10-16] MEDS: Levothyroxine 75 MCG Tablet 225 MCG PO (06:21)
[2021-10-16] MEDS: Metoprolol Tartrate 100 MG Tablet PO ×2 (06:22→17:19)
[2021-10-16] MEDS: APIXABAN 2.5 MG TABLET PO ×2 (06:22→17:19)
[2021-10-16] MEDS: Senna/Docusate Sodium 1 Tablet PO ×2 (06:23→17:18)
[2021-10-16] MEDS: Insulin Glargine-YFGN 100 UNIT/ML Pen 40 UNIT SC (06:24)
[2021-10-16] MEDS: Nystatin Powder 15gm Bottle 1 APPLIC TOPICAL ×2 (06:26→17:20)
[2021-10-16 06:35] LABS: Bedside Glucose 241 mg/dL (74-106)
[2021-10-16] MEDS: Glimepiride 1 MG Tablet PO (08:01)
[2021-10-16] MEDS: Amox/Clavulanate 500 MG Tablet PO ×2 (08:01→17:19)
[2021-10-16] MEDS: predniSONE 20 MG Tablet 40 MG PO (08:01)
[2021-10-16] MEDS: Potassium Chloride Oral Tablet 20 MEQ PO (08:02)
--- NOTE | 2021-10-16 09:35 | NURSING ---
Left message for Dr. Marie's office requesting consult. Waiting for return call.
[2021-10-16] MEDS: Tuberculin,Purif.prot.deriv. 50 TU/ML Vial 0.1 ML ID (09:56)
[2021-10-16 10:55] LABS: Bedside Glucose 367 mg/dL (74-106)
[2021-10-16] MEDS: Insulin Lispro 100 UNIT/ML INSULN.PEN 10 UNIT SC ×2 (12:04→17:19)
--- NOTE | 2021-10-16 12:13 | CASEMGMT ---
Social Work See attached assessment for complete social work details. This psychosocial rehabilitation counselor met with patient in room. Introduced self and psychosocial rehabilitation counselor role. Patient agreeable to speak with this psychosocial rehabilitation counselor. Patient goal is to return to home alone. Patient reports to have support in the community and was independent prior to hospitalization and now fdc stay. This psychosocial rehabilitation counselor completed MOLST form with patient, patient wishes to be a Full Code. Patient identifies daughter, Jaquelin as main contact. Patient reports to have HCPOA, Jaquelin. Patient unable to have HCPOA forms brought into hospital. This psychosocial rehabilitation counselor educated patient on Medicare benefits and encouraged patient to contact secondary insurance to educated self on benefits. Patient with no questions. Active support and listening provided. Social Work to continue to follow. Leela LEWIS, NATALYA
[2021-10-16 13:17] LABS: Pathologist Review Reviewed
--- NOTE | 2021-10-16 15:23 | PCM.PN.DRR ---
TCU RX Drug Regimen Review Subjective: TCU Admission. 81 YOF presented to the ER with chest pain. Admitted with sepsis and respiratory failure secondary to pneumonia. Complicated by atrial fibrillation with RVR, CHF and acute on chronic kidney failure. Admitted to TCU with debility for strengthening and rehabilitation. Objective: Allergies Sulfa (Sulfonamide Antibiotics) Allergy (Verified 10/09/21 11:49) PEELING RASH Current Medications Generic Name Dose Route Start Last Admin Trade Name Freq PRN Reason Stop Dose Admin Acetaminophen 1,000 mg 10/15/21 20:09 Acetaminophen 500 Mg Tablet PO Q6H PRN PRN Pain Score 1-10 Albuterol Sulfate 2 puff 10/16/21 11:35 Albuterol Sulfate 8 Gm Inhaler (60 Puffs) INHALATION Q4H PRN PRN WHEEZING Amoxicillin/Clavulanate Potassium 500 mg 10/15/21 17:00 10/16/21 08:01 Amox/Clavulanate 500 Mg Tablet PO 10/18/21 17:01 500 mg BIDCM DAVID Administration Apixaban 2.5 mg 10/16/21 06:00 10/16/21 06:22 Apixaban 2.5 Mg Tablet PO 2.5 mg BID DAVID Administration Atorvastatin Calcium 40 mg 10/15/21 22:00 10/15/21 20:48 Atorvastatin Calcium 40 Mg Tablet PO 40 mg QHS DAVID Administration Bisacodyl 10 mg 10/15/21 16:37 10/15/21 20:48 Bisacodyl 5 Mg Tablet PO 10 mg DAILY PRN Administration Constipation Calamine/Phenol 1 applic 10/16/21 03:15 Menthol/Lanolin/Calamine/Znox 113 Gm Tube TOPICAL 4X/DAY PRN redness/prevent moisture damag Protocol Diltiazem HCl 240 mg 10/15/21 18:00 10/16/21 06:21 Diltiazem Cd 240 Mg Capsule PO 240 mg BID DAVID Administration Glimepiride 1 mg 10/16/21 08:00 10/16/21 08:01 Glimepiride 1 Mg Tablet PO 1 mg BREAKFAST DAVID Administration Insulin Glargine 40 unit 10/16/21 06:00 10/16/21 06:24 Insulin Glargine-Yfgn 100 Unit/Ml Pen SC 40 unit DAILY DAVID Administration Insulin Human Lispro 10 unit 10/16/21 11:45 10/16/21 12:04 Insulin Lispro 100 Unit/Ml Insuln.Pen SC 10 u TIDAC DAVID Administration Levothyroxine Sodium 225 mcg 10/16/21 06:00 10/16/21 06:21 Levothyroxine 75 Mcg Tablet PO 225 mcg DAILY@0600 DAVID Administration Lisinopril 40 mg 10/16/21 06:00 10/16/21 06:21 Lisinopril 40 Mg Tablet PO 40 mg DAILY DAVID Administration Metoprolol Tartrate 100 mg 10/15/21 18:15 10/16/21 06:22 Metoprolol Tartrate 100 Mg Tablet PO 100 mg BID DAVID Administration Mirabegron 25 mg 10/16/21 06:00 10/16/21 06:21 Mirabegron 25 Mg Tab.Er.24h PO 25 mg DAILY DAVID Administration Nystatin 1 applic 10/16/21 06:00 10/16/21 06:26 Nystatin Powder 15gm Bottle TOPICAL 1 applic BID DAVID Administration Protocol Phenazopyridine HCl 95 mg 10/15/21 17:29 Phenazopyridine 95 Mg Tablet PO TID PRN PRN URINARY SYMPTOMS Potassium Chloride 20 meq 10/16/21 08:00 10/16/21 08:02 Potassium Chloride Oral Tablet 20 Meq PO 20 meq BREAKFAST DAVID Administration Prednisone 40 mg 10/16/21 08:00 10/16/21 08:01 Prednisone 20 Mg Tablet PO 10/21/21 08:01 40 mg BREAKFAST DAVID Administration Senna/Docusate Sodium 1 tablet 10/15/21 20:15 10/16/21 06:23 Senna/Docusate Sodium 1 Tablet PO 1 tablet BID DAVID Administration Sodium Chloride 10 - 40 ml 10/15/21 16:15 0.9% Saline Lock 10 Ml Syringe IV UD PRN SALINE FLUSH Tuberculin PPD 0.1 ml 10/23/21 10:00 Tuberculin,Purif.Prot.Deriv. 50 Tu/Ml Vial ID 10/23/21 10:01 X1 ONE Problem List (Last Reviewed 10/15/21 @ 19:[address] Alexy Douglas MD) Hyperlipidemia (Acute) Overactive bladder (Acute) Hypothyroidism (Acute) Diabetes mellitus (Acute) Hypertension (Chronic) Chronic kidney disease, stage 3b (Acute) Acute on chronic diastolic congestive heart failure (Chronic) Acute respiratory failure with hypoxia (Acute) Debility (Acute) Atrial fibrillation with RVR (Acute) LLL pneumonia (Acute) Sepsis (Acute) Vital Signs Temp Pulse Resp BP Pulse Ox O2 Del Method O2 Flow Rate 96.7 F L 83 19 H 160/74 H 92 Nasal Cannula 6 10/15/21 16:13 10/16/21 11:31 10/16/21 11:31 10/16/21 06:20 10/16/21 10:00 10/16/21 10:00 10/16/21 10:42 Oxygen Flow Rate (L/min) 6 Oxygen Delivery Method Nasal Cannula Weight: 118.977 kg Body Mass Index (BMI) 39.9 Sodium 135 mmol/L (136-145) L 10/16/21 05:16 Potassium 4.4 mmol/L (3.5-5.1) 10/16/21 05:16 Chloride 98 mmol/L (98-107) 10/16/21 05:16 Carbon Dioxide 31.0 mmol/L (21.0-32.0) 10/16/21 05:16 Anion Gap 6 (5-15) 10/16/21 05:16 BUN 63 mg/dL (7-18) H 10/16/21 05:16 Creatinine 1.78 mg/dL (0.55-1.02) H 10/16/21 05:16 Est GFR (MDRD) Af Amer 35 mL/min (>60) L 10/16/21 05:16 Est GFR (MDRD) Non-Af 29 mL/min (>60) L 10/16/21 05:16 BUN/Creatinine Ratio 35.4 RATIO (10-20) H 10/16/21 05:16 Glucose 265 mg/dL (74-106) H 10/16/21 05:16 Assessment/Plan: 1. Pain: acetaminophen 1000mg PO Q6H PRN pain 1-10. Please continue to monitor for increased pain and PRN usage. Resident has not required a dose. 2. Bowel: senna/docusate 1T PO BID and bisacodyl 10mg PO daily PRN constipation. Resident received a dose of bisacodyl and has not had a documented bowel movement yet. Please continue to monitor for constipation and PRN usage. 3. Left lower lobe pneumonia: Augmentin 500mg PO BIDCM thru 10/18/21. Please continue to monitor for S/S of infection, renal function and diarrhea. 4. Atrial fibrillation/CAD: metoprolol tartrate 100mg PO BID, diltiazem CD 240mg PO BID, lisinopril 40mg PO daily and apixaban 2.5mg PO BID. Please continue to monitor BP (last 160/74), HR (last 83), S/S of bleeding, hemoglobin (last 10.9g/dL), potassium (last 4.4mmol/L), cough and renal function. Apixaban is appropriate for SCr (>1.5mg/dL) and age (>80). 5. Hyperlipidemia: atorvastatin 40mg PO QHS. Please consider ordering a lipid panel now and then annually as clinically appropriate. Last lipid panel from 11/2013. Thanks. Please continue to monitor for muscle pain and AST/ALT (last WNL 10/13/21). 6. Diabetes Mellitus: glimepiride 1mg PO breakfast, insulin glargine 40units SC daily and insulin lispro 10units SC TIDAC. Please consider ordering a hemoglobin A1c now and then every 3 months as clinically appropriate. Thanks. Please continue to monitor glucose (last 367mg/dL - resident is currently on prednisone which is likely contributing to elevated blood sugars) and S/S of hypoglycemia (this medication is on the BEERs list for hypoglycemia, blood glucose is currently elevated.) 7. Hypothyroidism: levothyroxine 225mcg PO daily. Please continue to monitor TSH (last 10/09/21) and S/S of hypo/hyperthyroidism. 8. Overactive bladder: mirabegron 25mg PO daily. Please continue to monitor BP, GI and genitourinary (Azo for relief) side effects. 9. Dysuria: phenazopyridine 95mg PO TID PRN urinary symptoms. Resident has not received any doses. Please continue to monitor for urinary symptoms. 10. Hypokalemia: potassium chloride 20mEq PO breakfast. Please continue to monitor potassium levels. 11. Shortness of breath: prednisone 40mg PO BREAKFAST thru 10/21/21 and albuterol inhaler 2puffs Q4H PRN wheezing. Please continue to monitor blood glucose, WBC, stomach upset, and PRN usage. Assessment/Plan for indications treated with psychotropic medications: None Medical chart and medication regimen reviewed. The following medication irregularities or issues were identified: *1. Atorvastatin 40mg PO QHS. Please consider ordering a lipid panel now and then annually as clinically appropriate. Last lipid panel from 11/2013. Thanks. *2. Glimepiride 1mg PO breakfast, insulin glargine 40units SC daily and insulin lispro 10units SC TIDAC. Please consider ordering a hemoglobin A1c now and then every 3 months as clinically appropriate. Thanks. Date of Note:: 10/16/21
[2021-10-16 16:45] LABS: Bedside Glucose 381 mg/dL (74-106)
[2021-10-16] MEDS: 0.9% Saline Lock 10 ML Syringe IV (17:24)
--- NOTE | 2021-10-16 19:11 | NURSING ---
pt refused enema or soap suds
[2021-10-16] MEDS: Atorvastatin Calcium 40 MG Tablet PO (20:57)
--- NOTE | 2021-10-16 21:17 | NURSING ---
Blood glucose 355, paged , awaiting return phone call
[2021-10-16 21:30] LABS: Bedside Glucose 355 mg/dL (74-106)
[2021-10-17] MEDS: Bisacodyl 5 MG Tablet 10 MG PO (06:18)
[2021-10-17] MEDS: Insulin Glargine-YFGN 100 UNIT/ML Pen 60 UNIT SC (06:21)
[2021-10-17] MEDS: Mirabegron 25 MG TAB.ER.24H PO (06:23)
[2021-10-17] MEDS: APIXABAN 2.5 MG TABLET PO ×2 (06:23→18:09)
[2021-10-17] MEDS: Lisinopril 40 MG Tablet PO (06:24)
[2021-10-17] MEDS: Levothyroxine 75 MCG Tablet 225 MCG PO (06:24)
[2021-10-17] MEDS: dilTIAZem CD 240 MG Capsule PO ×2 (06:24→18:09)
[2021-10-17] MEDS: Senna/Docusate Sodium 1 Tablet PO (06:24)
[2021-10-17 06:28] VITALS: BP 168/86; PULSE 84
[2021-10-17] MEDS: Metoprolol Tartrate 100 MG Tablet PO ×2 (06:28→18:09)
[2021-10-17 06:40] LABS: Bedside Glucose 210 mg/dL (74-106)
[2021-10-17] MEDS: 0.9% Saline Lock 10 ML Syringe IV (06:44)
[2021-10-17] MEDS: Nystatin Powder 15gm Bottle 1 APPLIC TOPICAL ×2 (06:46→18:06)
[2021-10-17 07:19] VITALS: O2SAT 98
[2021-10-17] MEDS: Insulin Lispro 100 UNIT/ML INSULN.PEN 20 UNIT SC ×3 (08:08→18:06)
[2021-10-17] MEDS: predniSONE 20 MG Tablet 40 MG PO (08:10)
[2021-10-17] MEDS: Glimepiride 1 MG Tablet PO (08:10)
[2021-10-17] MEDS: Amox/Clavulanate 500 MG Tablet PO ×2 (08:10→18:09)
[2021-10-17] MEDS: Potassium Chloride Oral Tablet 20 MEQ PO (08:10)
--- NOTE | 2021-10-17 10:41 | NURSING ---
pt c/o urinary freq & urgency more than usual, pt on myrbetriqe here and states she takes Gemtesa at home. dr Fisher updated, new order to dc myrbetriq and start Gemtesa.
[2021-10-17 11:25] LABS: Bedside Glucose 175 mg/dL (74-106)
[2021-10-17 14:01] VITALS: O2SAT 94
[2021-10-17 14:26] VITALS: BP 152/85; PULSE 78; RESP 16; TEMP 37; O2SAT 95
--- NOTE | 2021-10-17 16:33 | NURSING ---
pt stated she was on lasix 40mg daily at home, it was noted that pt was admitted from acute side with order change for lasix 40 mg daily from PRN. Dr lara updated, ordered lasix per home regimen
[2021-10-17 17:25] LABS: Bedside Glucose 176 mg/dL (74-106)
[2021-10-17] MEDS: Senna/Docusate Sodium 1 Tablet 2 TABLET PO (18:08)
[2021-10-17 18:09] VITALS: BP 172/96; PULSE 84
[2021-10-17] MEDS: Atorvastatin Calcium 40 MG Tablet PO (21:38)
[2021-10-17 22:00] VITALS: PULSE 71; RESP 16; O2SAT 97
[2021-10-18] MEDS: Furosemide 40 MG Tablet PO (06:15)
[2021-10-18] MEDS: APIXABAN 2.5 MG TABLET PO ×2 (06:15→17:53)
[2021-10-18] MEDS: dilTIAZem CD 240 MG Capsule PO ×2 (06:15→17:52)
[2021-10-18] MEDS: Levothyroxine 75 MCG Tablet 225 MCG PO (06:15)
[2021-10-18] MEDS: Senna/Docusate Sodium 1 Tablet 2 TABLET PO ×2 (06:15→17:54)
[2021-10-18] MEDS: Lisinopril 40 MG Tablet PO (06:16)
[2021-10-18] MEDS: Nystatin Powder 15gm Bottle 1 APPLIC TOPICAL ×2 (06:16→17:56)
[2021-10-18 06:17] VITALS: BP 157/59; PULSE 75
[2021-10-18] MEDS: Metoprolol Tartrate 100 MG Tablet PO ×2 (06:17→17:53)
[2021-10-18] MEDS: Insulin Glargine-YFGN 100 UNIT/ML Pen 60 UNIT SC (06:17)
[2021-10-18 06:31] LABS: Bedside Glucose 135 mg/dL (74-106)
[2021-10-18 07:16] LABS: Bedside Glucose 238 mg/dL (74-106)
[2021-10-18 07:44] VITALS: O2SAT 94
[2021-10-18] MEDS: Potassium Chloride Oral Tablet 20 MEQ PO (07:49)
[2021-10-18] MEDS: predniSONE 20 MG Tablet 40 MG PO (07:49)
[2021-10-18] MEDS: Amox/Clavulanate 500 MG Tablet PO ×2 (07:49→17:53)
[2021-10-18] MEDS: Glimepiride 1 MG Tablet PO (07:50)
[2021-10-18] MEDS: Insulin Lispro 100 UNIT/ML INSULN.PEN 20 UNIT SC ×3 (07:51→17:54)
[2021-10-18 11:10] LABS: Bedside Glucose 124 mg/dL (74-106)
[2021-10-18 14:13] VITALS: BP 157/78; PULSE 80; RESP 21; TEMP 35.8; O2SAT 94
--- NOTE | 2021-10-18 14:14 | CASEMGMT ---
Social Work Plan of care meeting held. Patient present as well as patient daughter, Marleny. Marleny present via speaker phone. Patient participating in physical and occupational therapy. Team recommending for patient to continue with further care and treatment on the Transitional Care Unit. Patient plans to discharge to home at time of discharge. Patient reports to need a front wheeled walker and home oxygen set up (if still on oxygen) as DME needs. Social Work to continue to follow and make referrals as appropriate. Leela Deluna MSW, NATALYA
[2021-10-18 14:30] VITALS: PULSE 81; RESP 18; O2SAT 92
[2021-10-18 17:00] LABS: Bedside Glucose 157 mg/dL (74-106)
[2021-10-18 17:53] VITALS: BP 154/74; PULSE 84
[2021-10-18] MEDS: Atorvastatin Calcium 40 MG Tablet PO (20:58)
[2021-10-18 21:51] LABS: Bedside Glucose 225 mg/dL (74-106)
[2021-10-19 06:30] VITALS: BP 172/83; PULSE 87
[2021-10-19] MEDS: Senna/Docusate Sodium 1 Tablet 2 TABLET PO ×2 (06:30→17:51)
[2021-10-19] MEDS: dilTIAZem CD 240 MG Capsule PO ×2 (06:30→17:51)
[2021-10-19] MEDS: Lisinopril 40 MG Tablet PO (06:30)
[2021-10-19] MEDS: Metoprolol Tartrate 100 MG Tablet PO ×2 (06:30→17:51)
[2021-10-19] MEDS: Levothyroxine 75 MCG Tablet 225 MCG PO (06:30)
[2021-10-19] MEDS: Furosemide 40 MG Tablet PO (06:30)
[2021-10-19] MEDS: Nystatin Powder 15gm Bottle 1 APPLIC TOPICAL ×2 (06:31→17:51)
[2021-10-19] MEDS: APIXABAN 2.5 MG TABLET PO ×2 (06:31→17:51)
[2021-10-19 06:35] LABS: Bedside Glucose 105 mg/dL (74-106)
[2021-10-19] MEDS: Insulin Glargine-YFGN 100 UNIT/ML Pen 60 UNIT SC (06:41)
[2021-10-19 07:17] VITALS: O2SAT 93
[2021-10-19] MEDS: predniSONE 20 MG Tablet 40 MG PO (08:13)
[2021-10-19] MEDS: Potassium Chloride Oral Tablet 20 MEQ PO (08:13)
[2021-10-19] MEDS: Insulin Lispro 100 UNIT/ML INSULN.PEN 20 UNIT SC ×3 (08:13→17:51)
[2021-10-19] MEDS: Glimepiride 1 MG Tablet PO (08:13)
[2021-10-19 11:16] LABS: Bedside Glucose 162 mg/dL (74-106)
--- NOTE | 2021-10-19 14:34 | MDS.RN ---
Pain interview for BE 10/22/21
[2021-10-19 15:42] VITALS: BP 153/71; PULSE 80; RESP 18; TEMP 35.7; O2SAT 94
[2021-10-19 16:21] LABS: Bedside Glucose 222 mg/dL (74-106)
[2021-10-19 17:51] VITALS: PULSE 80
[2021-10-19 21:23] VITALS: PULSE 68; RESP 16
[2021-10-19] MEDS: Atorvastatin Calcium 40 MG Tablet PO (21:26)
[2021-10-20 00:41] LABS: Bedside Glucose 226 mg/dL (74-106)
[2021-10-20 06:29] VITALS: BP 123/72; PULSE 75
[2021-10-20] MEDS: APIXABAN 2.5 MG TABLET PO ×2 (06:30→17:40)
[2021-10-20] MEDS: Furosemide 40 MG Tablet PO (06:31)
[2021-10-20] MEDS: Levothyroxine 75 MCG Tablet 225 MCG PO (06:31)
[2021-10-20 06:32] VITALS: PULSE 75
[2021-10-20] MEDS: dilTIAZem CD 240 MG Capsule PO ×2 (06:32→17:40)
[2021-10-20] MEDS: Metoprolol Tartrate 100 MG Tablet PO ×2 (06:32→17:40)
[2021-10-20] MEDS: Insulin Glargine-YFGN 100 UNIT/ML Pen 60 UNIT SC (06:33)
[2021-10-20] MEDS: Nystatin Powder 15gm Bottle 1 APPLIC TOPICAL ×2 (06:35→17:41)
[2021-10-20] MEDS: Lisinopril 40 MG Tablet PO (06:38)
[2021-10-20 07:30] LABS: Bedside Glucose 92 mg/dL (74-106)
[2021-10-20] MEDS: Glimepiride 1 MG Tablet PO (08:26)
[2021-10-20] MEDS: Insulin Lispro 100 UNIT/ML INSULN.PEN 20 UNIT SC ×2 (08:26→12:24)
[2021-10-20] MEDS: predniSONE 20 MG Tablet 40 MG PO (08:26)
[2021-10-20] MEDS: Potassium Chloride Oral Tablet 20 MEQ PO (08:26)
[2021-10-20 08:35] VITALS: PULSE 109; RESP 18; O2SAT 96
[2021-10-20 08:52] VITALS: O2SAT 94
[2021-10-20 11:40] LABS: Bedside Glucose 94 mg/dL (74-106)
--- NOTE | 2021-10-20 12:40 | CASEMGMT ---
Addendum entered by Altagracia Roberto 10/20/21 15:56: Patient is new on O2 at 2LPM. Nursing to begin weaning trials. However, O2 ordered through [employer]. Addendum entered by Altagracia Roberto 10/20/21 15:54: Followed up with pt on DC date and HHC agency. Pt requesting DC 10/25 with [facility]. IDT agreeable. BIMS () and PHQ-9 () for MDS assessment. Call placed to [facility] for referral. Original Note: Social Work SW presented to room to complete MDS assessment. Introduced self and role. Dtr and gddtr present thus SW did not complete. Pt inquired about discharging next week. Family agreeable, but dtr lives out of state and a friend would need to transport pt home. Pt to contact friend for availability then SW to set DC date. Pt agreeable. Inquired about HHC vs OP therapy. Pt prefers HH. Provided skilled HHC list of providers including quality and resource use data and consistent with the patient?s preferred geographic region, medical needs, and insurance network. Pt to review and notify SW of preference. Discussed other needs. SW to order FWW through [employer]. Provided dtr MOW and [facility] resources for her to set up. Dtr and gddtr presented later to SW office and expressed their concern with pt not following through with resources at [facility]. Informed both pt is her own person and can deny services, but this worker with order SW through [facility] to continue to follow, assess the home safety and connect pt with further resources, if needed. Both appreciative. Per family, pt is still adamant about driving and cutting her grass. SW to relay to Dr to note any restrictions on DC instructions if Dr feels those are both unsafe tasks. Family is appreciative. SW to continue to follow. 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
[2021-10-20 15:28] VITALS: BP 159/72; PULSE 60; RESP 20; TEMP 36.5; O2SAT 93
[2021-10-20 17:01] LABS: Bedside Glucose 278 mg/dL (74-106)
[2021-10-20] MEDS: Insulin Lispro 100 UNIT/ML INSULN.PEN 10 UNIT SC (17:39)
[2021-10-20 17:40] VITALS: PULSE 60
[2021-10-20] MEDS: Senna/Docusate Sodium 1 Tablet 2 TABLET PO (17:40)
[2021-10-20] MEDS: Atorvastatin Calcium 40 MG Tablet PO (21:29)
[2021-10-20 22:05] LABS: Bedside Glucose 231 mg/dL (74-106)
[2021-10-21 06:11] VITALS: BP 142/82; PULSE 89
[2021-10-21] MEDS: APIXABAN 2.5 MG TABLET PO ×2 (06:12→17:28)
[2021-10-21] MEDS: Lisinopril 40 MG Tablet PO (06:12)
[2021-10-21] MEDS: dilTIAZem CD 240 MG Capsule PO ×2 (06:12→17:28)
[2021-10-21] MEDS: Levothyroxine 75 MCG Tablet 225 MCG PO (06:13)
[2021-10-21] MEDS: Senna/Docusate Sodium 1 Tablet 2 TABLET PO ×2 (06:13→17:27)
[2021-10-21 06:14] VITALS: BP 142/82; PULSE 89
[2021-10-21] MEDS: Metoprolol Tartrate 100 MG Tablet PO ×2 (06:14→17:28)
[2021-10-21] MEDS: Furosemide 40 MG Tablet PO (06:14)
[2021-10-21] MEDS: Nystatin Powder 15gm Bottle 1 APPLIC TOPICAL ×2 (06:16→17:28)
[2021-10-21] MEDS: Insulin Glargine-YFGN 100 UNIT/ML Pen 45 UNIT SC (06:17)
[2021-10-21 06:25] LABS: Bedside Glucose 137 mg/dL (74-106)
[2021-10-21] MEDS: Insulin Lispro 100 UNIT/ML INSULN.PEN 10 UNIT SC ×4 (08:02→22:26)
[2021-10-21] MEDS: Potassium Chloride Oral Tablet 20 MEQ PO (08:03)
[2021-10-21] MEDS: Glimepiride 1 MG Tablet PO (08:03)
[2021-10-21] MEDS: predniSONE 20 MG Tablet 40 MG PO (08:03)
[2021-10-21 11:05] LABS: Bedside Glucose 139 mg/dL (74-106)
[2021-10-21 13:39] VITALS: BP 143/68; PULSE 79; RESP 18; TEMP 36.8; O2SAT 96
[2021-10-21 17:28] VITALS: PULSE 79
[2021-10-21 20:30] VITALS: O2SAT 98
[2021-10-21] MEDS: Atorvastatin Calcium 40 MG Tablet PO (20:41)
--- NOTE | 2021-10-21 21:44 | NURSING ---
Paged Dr. Fisher w/ return phone call within minutes. Updated on blood sugar reading of 353 this hs. Pt acknowledged eating chips, pretzels, and a candy bar today while playing bingo. New order received and read back for Humalog 10 units x1 and Humalog moderate sliding scale AC and HS.
[2021-10-22 06:18] VITALS: BP 148/78; PULSE 90
[2021-10-22] MEDS: Metoprolol Tartrate 100 MG Tablet PO ×2 (06:18→17:40)
[2021-10-22] MEDS: dilTIAZem CD 240 MG Capsule PO ×2 (06:19→17:40)
[2021-10-22] MEDS: Levothyroxine 75 MCG Tablet 225 MCG PO (06:19)
[2021-10-22] MEDS: Lisinopril 40 MG Tablet PO (06:20)
[2021-10-22] MEDS: Furosemide 40 MG Tablet PO (06:20)
[2021-10-22] MEDS: APIXABAN 2.5 MG TABLET PO ×2 (06:20→17:41)
[2021-10-22] MEDS: Nystatin Powder 15gm Bottle 1 APPLIC TOPICAL ×2 (06:27→17:41)
[2021-10-22] MEDS: Insulin Lispro 100 UNIT/ML INSULN.PEN 10 UNIT SC ×3 (08:06→17:39)
[2021-10-22] MEDS: Potassium Chloride Oral Tablet 20 MEQ PO (08:07)
[2021-10-22] MEDS: Insulin Glargine-YFGN 100 UNIT/ML Pen 45 UNIT SC (08:07)
[2021-10-22] MEDS: Glimepiride 1 MG Tablet PO (08:08)
[2021-10-22 10:00] VITALS: PULSE 70; RESP 18; O2SAT 94
[2021-10-22 11:20] LABS: Bedside Glucose 108 mg/dL (74-106)
[2021-10-22 14:03] VITALS: BP 116/53; PULSE 76; RESP 20; TEMP 36.1; O2SAT 97
[2021-10-22 17:00] LABS: Bedside Glucose 176 mg/dL (74-106)
[2021-10-22 17:40] VITALS: PULSE 76
[2021-10-22] MEDS: Insulin Lispro 100 UNIT/ML INSULN.PEN SC ×2 (17:40→22:12)
[2021-10-22] MEDS: Senna/Docusate Sodium 1 Tablet 2 TABLET PO (17:41)
[2021-10-22 21:55] LABS: Bedside Glucose 209 mg/dL (74-106)
[2021-10-22] MEDS: Atorvastatin Calcium 40 MG Tablet PO (22:12)
[2021-10-23] VITALS (7 sets, daily range): BP systolic 128–147; BP diastolic 50–77; PULSE 69–80; RESP 18; TEMP 36.2; O2SAT 91–95
[2021-10-23] MEDS: Levothyroxine 75 MCG Tablet 225 MCG PO (05:26)
[2021-10-23] MEDS: Furosemide 40 MG Tablet PO (05:27)
[2021-10-23] MEDS: Lisinopril 40 MG Tablet PO (05:27)
[2021-10-23] MEDS: dilTIAZem CD 240 MG Capsule PO ×2 (05:28→17:52)
[2021-10-23] MEDS: Metoprolol Tartrate 100 MG Tablet PO ×2 (05:28→17:53)
[2021-10-23] MEDS: APIXABAN 2.5 MG TABLET PO ×2 (05:28→17:53)
[2021-10-23] MEDS: Nystatin Powder 15gm Bottle 1 APPLIC TOPICAL ×2 (05:30→17:53)
[2021-10-23 05:46] LABS: Absolute Neutrophil Count 10.3 X10^3/uL (2.0-7.7); Basophil# 0.05 X10^3/uL; Basophil% 0.4 % (0-1); Eosinophil# 0.22 X10^3/uL; Eosinophils% 1.6 % (0-5); Hematocrit 35.5 % (37-47); Hemoglobin 10.9 g/dL (12.0-15.0); Lymphocyte % 13.5 % (19-41); Mean Corp Hgb Conc 30.7 g/dL (32-36); Mean Corpuscular Hgb 28.6 pg (27.0-32.0); Mean Corpuscular Volume 93.2 fL (81-99); Mean Platelet Vol. 10.3 fl (6.2-12.0); Monocyte# 1.04 X10^3/uL; Monocyte% 7.4 % (0-10); NRBC Flagged by Analyzer 0 % (0-5); Neutrophil % 73.4 % (47-70); Platelet Count 276 K/mm3 (150-450); RBC Distribution Width CV 14.8 % (11.6-14.6); RBC Distribution Width SD 51.1 fl (35.1-43.9); Red Blood Count 3.81 M/mm3 (4.2-5.4)
[2021-10-23 06:11] LABS: Anion Gap 4 (5-15); BUN 51 mg/dL (7-18); BUN/Creat Ratio 35.2 RATIO (10-20); Calcium,Total 8.4 mg/dL (8.5-10.1); Chloride 105 mmol/L (98-107); Creatinine, Serum 1.45 mg/dL (0.55-1.02); EST Glomerular Filtration Rate 37 mL/min (>60); Est Glom Filt Rate - Afr Amer 44 mL/min (>60); Estimated Creatinine Clearance 30.18 ml/min; Glucose 111 mg/dL (74-106); Potassium 4.4 mmol/L (3.5-5.1); Sodium Level 142 mmol/L (136-145)
[2021-10-23 06:55] LABS: Bedside Glucose 106 mg/dL (74-106)
[2021-10-23] MEDS: Insulin Lispro 100 UNIT/ML INSULN.PEN 10 UNIT SC ×3 (08:25→17:51)
[2021-10-23] MEDS: Insulin Glargine-YFGN 100 UNIT/ML Pen 45 UNIT SC (08:26)
[2021-10-23] MEDS: Glimepiride 1 MG Tablet PO (08:26)
[2021-10-23] MEDS: Potassium Chloride Oral Tablet 20 MEQ PO (08:26)
--- NOTE | 2021-10-23 10:13 | NURSING ---
Oxygen Removed this AM to wean off oxygen pt 97% RA after ambulation. Pt completed therapy and oxygen stayed above 93% on RA. Pt returned to bed and rechecked Pulse ox at this time and pt 87% Room air. Reapplied 1 L NC Oxygen Pulse Ox 93% 1L NC.
[2021-10-23 11:35] LABS: Bedside Glucose 121 mg/dL (74-106)
[2021-10-23] MEDS: Tuberculin,Purif.prot.deriv. 50 TU/ML Vial 0.1 ML ID (13:17)
[2021-10-23 16:40] LABS: Bedside Glucose 197 mg/dL (74-106)
[2021-10-23] MEDS: Insulin Lispro 100 UNIT/ML INSULN.PEN SC ×2 (17:52→21:13)
[2021-10-23] MEDS: Atorvastatin Calcium 40 MG Tablet PO (21:12)
[2021-10-23 21:40] LABS: Bedside Glucose 196 mg/dL (74-106)
--- NOTE | 2021-10-24 00:14 | CPS ---
Started pulse ox trend at 23:07 with 1L on sat was 95%. O2 was removed at this time. RT stayed for % minutes to assure patient o2 sats stayed fairly normal. Later approximately 45 min later, RT checked on Pt and spo2 was 82% on Room air. Pt was asleep at this time. RN notified and nasal o2 was reapplied at 2357 at 2L. Spo2 came back up quickly and maintained at mid 90s. RN was notified again.
[2021-10-24 05:41] VITALS: BP 133/61; PULSE 85
[2021-10-24] MEDS: APIXABAN 2.5 MG TABLET PO ×2 (05:42→17:21)
[2021-10-24] MEDS: Levothyroxine 75 MCG Tablet 225 MCG PO (05:42)
[2021-10-24] MEDS: Senna/Docusate Sodium 1 Tablet 2 TABLET PO ×2 (05:42→17:22)
[2021-10-24] MEDS: dilTIAZem CD 240 MG Capsule PO ×2 (05:42→17:23)
[2021-10-24] MEDS: Furosemide 40 MG Tablet PO (05:43)
[2021-10-24 05:44] VITALS: PULSE 85
[2021-10-24] MEDS: Nystatin Powder 15gm Bottle 1 APPLIC TOPICAL ×2 (05:44→17:24)
[2021-10-24] MEDS: Lisinopril 40 MG Tablet PO (05:44)
[2021-10-24] MEDS: Metoprolol Tartrate 100 MG Tablet PO ×2 (05:44→17:22)
[2021-10-24 07:20] LABS: Bedside Glucose 100 mg/dL (74-106)
[2021-10-24] MEDS: Insulin Lispro 100 UNIT/ML INSULN.PEN 10 UNIT SC ×3 (08:40→17:23)
[2021-10-24] MEDS: Glimepiride 1 MG Tablet PO (08:40)
[2021-10-24] MEDS: Potassium Chloride Oral Tablet 20 MEQ PO (08:40)
[2021-10-24] MEDS: Insulin Glargine-YFGN 100 UNIT/ML Pen 45 UNIT SC (08:40)
[2021-10-24 11:09] VITALS: O2SAT 94
[2021-10-24 11:51] LABS: Bedside Glucose 161 mg/dL (74-106)
[2021-10-24] MEDS: Insulin Lispro 100 UNIT/ML INSULN.PEN SC ×2 (11:53→17:23)
[2021-10-24 11:55] VITALS: PULSE 69; RESP 18; O2SAT 94
[2021-10-24 14:10] VITALS: BP 110/47; PULSE 68; RESP 19; O2SAT 92
--- NOTE | 2021-10-24 14:31 | CASEMGMT ---
Social Work [facility] is able to accept pt and SOC 10/26. 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
[2021-10-24 16:56] LABS: Bedside Glucose 153 mg/dL (74-106)
[2021-10-24 17:22] VITALS: PULSE 68
--- NOTE | 2021-10-24 18:04 | DCINST_ITS ---
Discharge Instructions Diet Discharge Diet: - (1800 calorie diet, low salt and low fat. ) Activity Discharge Activity: May Not Drive (until OK with PCP at first appt following DC from [facility]), May Shower and Use Walker Weight Bearing Status: Full weight bearing Dressing / Incision Call your doctor if you observe: Fever of 101 or Higher, Shortness of breath, Dizziness, Fainting spells, Swelling in the ankles, Chest pain, Increased palpitations (irregular heartbeat) and Calf discomfort Follow Up Care Please Follow Up With: Rena Arreola MD When: Also will follow up with Dr. Douglas in 7-10 days Test Results: Test results from this visit will be discussed in further detail at your follow- up appointment, if applicable. Pending Tests Upon Discharge: none Discharge Plan Admission Admit Date/Time: 10/15/21 15:20 Primary Reason for Your Visit: Generalized weakness/debility secondary to community-acquired pneumonia Attending Provider: Alexy Douglas Chi Primary Care Provider: Alexy Douglas Chi Instructions Additional Instructions / Restrictions: 1. Please check your blood sugars before breakfast and before supper and write them down on a piece of paper. Bring the paper to Dr. Duoglas at your first office visit. Your blood sugars are much better controlled at discharge than they were at admission. 2. You have finished a complete course of antibiotics for pneumonia. Many people continue to cough for up to 4 to 6 weeks after resolution of the pneumonia. Dr. Douglas may want to check a follow-up chest x-ray in 1 month to make sure the pneumonia has completely resolved. It can take up to a month for the CXR to be clear even though the PNA has resolved and you no longer need antibiotics. TAke the incentive spirometer with you when you go home and use it frequently during the day to keep the air sacs in the lungs open. Also take a walk in the house every hour or so to improve aeration of the lungs and to keep from getting stiff. 3. Dr. Douglas will not be back in his office until next week. If you have any questions when you leave [facility] please do not hesitate to call me. Office: [phone] Discharge Orders/Prescriptions Prescriptions: New furosemide 40 mg Tablet 40 mg PO DAILY Qty: 30 0RF metoprolol tartrate 100 mg Tablet 100 mg PO BID Qty: 60 0RF acetaminophen 500 mg Tablet 1,000 mg PO Q6H PRN PRN (Reason: Pain Score 1-10) Qty: 0 0RF insulin lispro [Humalog KwikPen Insulin] 100 unit/mL Insulin Pen 10 unit subcut TIDAC 30 Days Qty: 9 0RF Continued levothyroxine 200 mcg tablet 225 mcg PO DAILY cholecalciferol (vitamin D3) 325 mcg (13,000 unit) capsule 325 mcg PO DAILY potassium chloride 20 mEq tablet extended release 20 meq PO DAILY Gemtesa 75 mg tablet 75 mg PO DAILY Eliquis 2.5 mg tablet 2.5 mg PO DAILY diltiazem HCl 240 mg capsule,extended release 24hr 240 mg PO BID glimepiride 1 MG tablet 1 mg PO DAILY benazepril 40 mg tablet 40 mg PO DAILY rosuvastatin 20 mg tablet 20 mg PO QHS Qty: 30 11RF Hold Instructions: Home Medication placed on hold at Doctor's office Changed insulin degludec 100 unit/mL (3 mL) insulin pen 45 unit SC DAILY 30 Days Qty: 15 0RF Discontinued phenazopyridine 100 mg tablet 100 mg PO TID PRN PRN (Reason: URINARY SYMPTOMS) Label Comments: TAKE 1 TABLET BY MOUTH THREE TIMES DAILY NEEDED metoprolol tartrate 100 mg tablet 100 mg PO DAILY prednisone 20 mg tablet 40 mg PO BREAKFAST ipratropium bromide 0.02 % solution 0.5 mg inhalation Q4H.RT amoxicillin-pot clavulanate 500-125 mg tablet 500 mg PO BIDCM Referrals / Follow Up: Rena Arreola MD [Med Staff - Active Staff] - 10/27/21 4:30 pm Alexy Douglas Chi, MD [Primary Care Provider] - Disposition Disposition (needs filled in before D/C Order can be placed): Home Health Service
--- NOTE | 2021-10-24 18:34 | DS.PCM_ITS ---
Providers Date of Admission: 10/15/21 Date of Discharge: 10/25/21 Primary Care Physician: Dr. Alexy Douglas MD Reason For Visit: PNEUMONIA AND AFIB Diagnosis Discharge Diagnosis (1) Debility: Status: Acute Code(s): R53.81 - Other malaise (2) Acute respiratory failure with hypoxia: Status: Acute Code(s): J96.01 - Acute respiratory failure with hypoxia Plan: due to PNA (3) LLL pneumonia: Status: Resolved Code(s): J18.9 - Pneumonia, unspecified organism (4) Atrial fibrillation with RVR: Status: Resolved Code(s): I48.91 - Unspecified atrial fibrillation (5) Acute on chronic diastolic congestive heart failure: Status: Chronic Code(s): I50.33 - Acute on chronic diastolic (congestive) heart failure (6) Chronic kidney disease, stage 3b: Status: Acute Code(s): N18.32 - Chronic kidney disease, stage 3b (7) Hypertension: Status: Chronic Code(s): I10 - Essential (primary) hypertension (8) Diabetes mellitus: Status: Acute Code(s): E11.9 - Type 2 diabetes mellitus without complications (9) Hypothyroidism: Status: Acute Code(s): E03.9 - Hypothyroidism, unspecified (10) Overactive bladder: Status: Acute Code(s): N32.81 - Overactive bladder (11) Hyperlipidemia: Status: Acute Code(s): E78.5 - Hyperlipidemia, unspecified Plan 1. Discharge home 2. Follow-up with Dr. Douglas in 7 to 10 days postdischarge 3. Follow-up with Dr. Rena Arreola for overactive bladder 4. Follow-up with [facility] for atrial fibrillation 5. [facility] Home health care Medications at Discharge Home Medications cholecalciferol (vitamin D3) 325 mcg (13,000 unit) capsule 325 mcg PO DAILY supplement 06/14/21 levothyroxine 200 mcg tablet 225 mcg PO DAILY thyroid 06/14/21 potassium chloride 20 mEq tablet,extended release 20 meq PO DAILY supplement 06/14/21 vibegron 75 mg tablet (Gemtesa) 75 mg PO DAILY OVERACTIVE BLADDER 06/14/21 rosuvastatin 20 mg tablet 20 mg PO QHS cholesterol #30 tabs 08/04/21 apixaban 2.5 mg tablet (Eliquis) 2.5 mg PO DAILY blood thinner 10/09/21 benazepril 40 mg tablet 40 mg PO DAILY blood pressure 10/09/21 diltiazem HCl 240 mg capsule,extended release 24 hr 240 mg PO BID heart 10/09/21 glimepiride 1 mg tablet 1 mg PO DAILY blood sugar 10/09/21 acetaminophen 500 mg tablet 1,000 mg PO Q6H PRN PRN Pain Score 1-10 #0 tabs 10/24/21 furosemide 40 mg tablet 40 mg PO DAILY #30 tabs 10/24/21 insulin degludec 100 unit/mL (3 mL) subcutaneous pen 45 unit (0.45 mL) subcut DAILY blood sugar 30 days #15 mL 10/24/21 insulin lispro 100 unit/mL subcutaneous pen (Humalog KwikPen (U-100) Insulin) 10 unit (0.1 mL) subcut TIDAC 30 days #9 pens 10/24/21 metoprolol tartrate 100 mg tablet 100 mg PO BID #60 tabs 10/24/21 Hospital Course Operations None Procedures None Summary of Care Provided Minutes Spent on Discharge: 40 Hospital Course: Jayde Wheat is a 81-year-old female with a past medical history of atrial fibrillation, morbid obesity, breast cancer, chronic diastolic congestive heart failure, chronic kidney disease stage III, COPD, diastolic dysfunction, diabetes mellitus type 2, hypertension, tobacco dependence in remission, hypothyroidism, secondary pulmonary hypertension and basal cell skin cancers who presented to the [facility] emergency department on 10/09/2021 complaining of chest pain, shortness of breath and feeling miserable for the preceding 2 days. Chest x-ray showed a left lower lobe pneumonia and pleural effusion. White blood cell count was elevated at 19.8 and she was in atrial fibrillation with a rapid ventricular response. Lactic acid was elevated at 2.5. She was admitted to the hospital and started on Rocephin and azithromycin. She required supplemental oxygen, up to 6 LPM. She was also started on steroids for acute exacerbation COPD. A Cardizem drip was started for heart rate control. Eliquis was continued. Metoprolol was increased to 100 mg p.o. twice daily and rate control was achieved. While in the hospital she experienced acute on chronic diastolic congestive heart failure, likely due to A. fib with RVR, and was transitioned to IV Lasix. She was seen by PT/OT while in the hospital and admission to TCU was requested. On 10/14/2021 the intravenous Lasix was stopped due to a rising creatinine. On 10/15/2021 she was transition for Augmentin and was to take it for 3 additional days to complete a 10-day course of antibiotics. On 10/15/2021 she was admitted to the transitional care unit with generalized weakness/debility for rehabilitation and strengthening prior to returning home. Steroids were weaned off and she completed a course of antibiotics prior to DC from TCU. Insulin was adjusted during her time in TCU to maintain good BS control. At the time of DC from TCU she no longer needed oxygen supplementation when awake. She desaturates when she is sleeping and an overnight trending pulse ox was done on -10/24/21. She had many desaturations but the longest occurred at 11:23 PM and lasted 10 minutes and 42 seconds. The lowest pulse ox recorded was 74%. She had another desaturation to 77% lasting 6 minutes and 2 sec. Home oxygen was arranged by the and she will wear it anytime she is sleeping. I discussed a sleep study and PAP therapy with her but, she was dismissive and I question whether she would wear CPAP or BIPAP. Will defer ordering a sleep study to Dr. Douglas. She was encouraged to lose weight to help with sleep apnea. She was discharged home on 10/25/2021 and will follow-up with Dr. Douglas in 7 to 10 days. An appointment was made for her with Dr. Rena Arreola for treatment of overactive bladder. She will have HHC through [facility]. Weight / BMI Weight Weight: 262 lb 3.2 oz Body Mass Index (BMI) 39.9 ABG / Lab / Microbiology Data Result Diagrams: 10/23/21 05:12 10/23/21 05:12 Laboratory: Laboratory Results - last 24 hr 10/23/21 21:06: POC Glucose 196 H 10/24/21 06:15: POC Glucose 100 10/24/21 11:19: POC Glucose 161 H 10/24/21 16:29: POC Glucose 153 H Microbiology: Microbiology 10/22/21 06:30 Nasal Secretion SARS-CoV-2 Antigen (Rapid) - Final D/C Instructions Discharge Diet: - (1800 calorie diet, low salt and low fat. ) Weight Bearing Status: Full weight bearing Call your doctor if you observe: Fever of 101 or Higher, Shortness of breath, Dizziness, Fainting spells, Swelling in the ankles, Chest pain, Increased palpitations (irregular heartbeat) and Calf discomfort Pending Tests Upon Discharge: none Please Follow Up With: Rena Arreola MD When: Also will follow up with Dr. Douglas in 7-10 days Meaningful Use Info Meaningful Use Diagnoses (Choose all that apply): None applicable Discharge Plan Admission Admit Date/Time: 10/15/21 15:20 Primary Reason for Your Visit: Generalized weakness/debility secondary to community-acquired pneumonia Attending Provider: Alexy Douglas Chi Primary Care Provider: Alexy Douglas Chi Instructions Additional Instructions / Restrictions: 1. Please check your blood sugars before breakfast and before supper and write them down on a piece of paper. Bring the paper to Dr. Douglas at your first office visit. Your blood sugars are much better controlled at discharge than they were at admission. 2. You have finished a complete course of antibiotics for pneumonia. Many people continue to cough for up to 4 to 6 weeks after resolution of the pneumonia. Dr. Douglas may want to check a follow-up chest x-ray in 1 month to make sure the pneumonia has completely resolved. It can take up to a month for the CXR to be clear even though the PNA has resolved and you no longer need antibiotics. TAke the incentive spirometer with you when you go home and use it frequently during the day to keep the air sacs in the lungs open. Also take a walk in the house every hour or so to improve aeration of the lungs and to keep from getting stiff. 3. Dr. Douglas will not be back in his office until next week. If you have any questions when you leave [facility] please do not hesitate to call me. Office: [phone] Discharge Orders/Prescriptions Prescriptions: New furosemide 40 mg Tablet 40 mg PO DAILY Qty: 30 0RF metoprolol tartrate 100 mg Tablet 100 mg PO BID Qty: 60 0RF acetaminophen 500 mg Tablet 1,000 mg PO Q6H PRN PRN (Reason: Pain Score 1-10) Qty: 0 0RF insulin lispro [Humalog KwikPen Insulin] 100 unit/mL Insulin Pen 10 unit subcut TIDAC 30 Days Qty: 9 0RF Continued levothyroxine 200 mcg tablet 225 mcg PO DAILY cholecalciferol (vitamin D3) 325 mcg (13,000 unit) capsule 325 mcg PO DAILY potassium chloride 20 mEq tablet extended release 20 meq PO DAILY Gemtesa 75 mg tablet 75 mg PO DAILY Eliquis 2.5 mg tablet 2.5 mg PO DAILY diltiazem HCl 240 mg capsule,extended release 24hr 240 mg PO BID glimepiride 1 MG tablet 1 mg PO DAILY benazepril 40 mg tablet 40 mg PO DAILY rosuvastatin 20 mg tablet 20 mg PO QHS Qty: 30 11RF Hold Instructions: Home Medication placed on hold at Doctor's office Changed insulin degludec 100 unit/mL (3 mL) insulin pen 45 unit SC DAILY 30 Days Qty: 15 0RF Discontinued phenazopyridine 100 mg tablet 100 mg PO TID PRN PRN (Reason: URINARY SYMPTOMS) Label Comments: TAKE 1 TABLET BY MOUTH THREE TIMES DAILY NEEDED metoprolol tartrate 100 mg tablet 100 mg PO DAILY prednisone 20 mg tablet 40 mg PO BREAKFAST ipratropium bromide 0.02 % solution 0.5 mg inhalation Q4H.RT amoxicillin-pot clavulanate 500-125 mg tablet 500 mg PO BIDCM Referrals / Follow Up: Rena Arreola MD [Med Staff - Active Staff] - 10/27/21 4:30 pm Alexy Douglas Chi, MD [Primary Care Provider] - Disposition Disposition (needs filled in before D/C Order can be placed): Home Health Service Charges/Coding Visit Charges Inpatient E&M: 91695 SNF Disch >30 Min
[2021-10-24] MEDS: Atorvastatin Calcium 40 MG Tablet PO (21:27)
[2021-10-24 22:00] LABS: Bedside Glucose 155 mg/dL (74-106)
[2021-10-25 05:53] VITALS: BP 154/60; PULSE 70
[2021-10-25 05:54] VITALS: PULSE 76
[2021-10-25] MEDS: Lisinopril 40 MG Tablet PO (05:54)
[2021-10-25] MEDS: Senna/Docusate Sodium 1 Tablet 2 TABLET PO (05:54)
[2021-10-25] MEDS: Levothyroxine 75 MCG Tablet 225 MCG PO (05:54)
[2021-10-25] MEDS: Metoprolol Tartrate 100 MG Tablet PO (05:54)
[2021-10-25] MEDS: APIXABAN 2.5 MG TABLET PO (05:55)
[2021-10-25] MEDS: Furosemide 40 MG Tablet PO ×2 (05:55)
[2021-10-25] MEDS: Nystatin Powder 15gm Bottle 1 APPLIC TOPICAL (06:00)
[2021-10-25] MEDS: dilTIAZem CD 240 MG Capsule PO (06:00)
[2021-10-25 06:35] LABS: Bedside Glucose 105 mg/dL (74-106)
[2021-10-25] MEDS: Insulin Glargine-YFGN 100 UNIT/ML Pen 45 UNIT SC (07:13)
[2021-10-25 07:30] VITALS: O2SAT 91
[2021-10-25] MEDS: Insulin Lispro 100 UNIT/ML INSULN.PEN 10 UNIT SC ×2 (08:35→11:41)
[2021-10-25] MEDS: Glimepiride 1 MG Tablet PO (08:35)
[2021-10-25] MEDS: Potassium Chloride Oral Tablet 20 MEQ PO (08:35)
[2021-10-25 08:44] VITALS: PULSE 80; RESP 18; O2SAT 95
[2021-10-25] MEDS: Insulin Lispro 100 UNIT/ML INSULN.PEN SC (11:41)
[2021-10-25 11:50] LABS: Bedside Glucose 155 mg/dL (74-106)
--- NOTE | 2021-10-25 12:15 | NURSING ---
[facility] delivered walker and portable oxygen tank for home
[2021-10-25 12:38] VITALS: BP 137/68; PULSE 70; RESP 18; TEMP 36.7; O2SAT 96
--- NOTE | 2021-11-02 11:28 | NURSING ---
Brim [employer] Hand Note: Initial activity assessment completed on paper by interim instructional coordinator.
== END 2021-10-25 14:45 | disposition home health service (06) | DRG 194 ==
PROVIDERS: Admitting Provider Family Medicine Geriatric Medicine; PCP Family Medicine Geriatric Medicine; Visit Provider Family Medicine Geriatric Medicine
DX: J18.9 Pneumonia, unspecified organism (principal); I13.0 Hypertensive heart and chronic kidney disease with heart failure and stage 1 through stage 4 chronic kidney disease, or unspecified chronic kidney disease; I50.32 Chronic diastolic (congestive) heart failure; J96.11 Chronic respiratory failure with hypoxia; J44.0 Chronic obstructive pulmonary disease with (acute) lower respiratory infection; I48.11 Longstanding persistent atrial fibrillation; I27.29 Other secondary pulmonary hypertension; E11.22 Type 2 diabetes mellitus with diabetic chronic kidney disease; N18.32 Chronic kidney disease, stage 3b; E66.01 Morbid (severe) obesity due to excess calories; E03.9 Hypothyroidism, unspecified; E78.5 Hyperlipidemia, unspecified; I25.10 Atherosclerotic heart disease of native coronary artery without angina pectoris; E87.6 Hypokalemia; Z87.891 Personal history of nicotine dependence; Z79.84 Long term (current) use of oral hypoglycemic drugs; Z79.01 Long term (current) use of anticoagulants; N32.81 Overactive bladder; Z79.899 Other long term (current) drug therapy; Z79.890 Hormone replacement therapy; Z68.39 Body mass index [BMI] 39.0-39.9, adult
CPT/HCPCS: 36415; 80048; 82962; 85025; 87426; 94640; 94762; 97110; 97116; 97162; 97166; 97530; 97535; 97802; 99251; A4216; G0463

== ENCOUNTER → 2021-10-30 | Outpatient (CLI) | payer MEDICARE, OTHER, SELFPAY ==
[2021-10-30 17:06] LABS: Absolute Lymphocyte Count 1.81 X10^3/uL (0.83-4.51); Absolute Neutrophil Count 7.5 X10^3/uL (2.0-7.7); Basophil# 0.05 X10^3/uL; Basophil% 0.5 % (0-1); Eosinophil# 0.27 X10^3/uL; Eosinophils% 2.6 % (0-5); Hematocrit 34.2 % (37-47); Hemoglobin 10.6 g/dL (12.0-15.0); Lymphocyte # 1.81 X10^3/ul (0.83-4.51); Lymphocyte % 17.4 % (19-41); Mean Corpuscular Hgb 28.6 pg (27.0-32.0); Mean Corpuscular Volume 92.2 fL (81-99); Mean Platelet Vol. 10.3 fl (6.2-12.0); Monocyte% 6.7 % (0-10); NRBC Flagged by Analyzer 0 % (0-5); Neutrophil # 7.51 X10^3/uL (2.7-7.7); Neutrophil % 72.2 % (47-70); Platelet Count 233 K/mm3 (150-450); RBC Distribution Width CV 15.1 % (11.6-14.6); RBC Distribution Width SD 50.7 fl (35.1-43.9); Red Blood Count 3.71 M/mm3 (4.2-5.4); White Blood Count 10.4 K/mm3 (4.4-11.0)
[2021-10-30 17:40] LABS: BNP,B-Type NATRIURETIC PEPTIDE 161.5 pg/mL (0-100)
[2021-10-30 17:41] LABS: Anion Gap 5 (5-15); BUN 28 mg/dL (7-18); BUN/Creat Ratio 17.8 RATIO (10-20); Calcium,Total 8.7 mg/dL (8.5-10.1); Chloride 107 mmol/L (98-107); Creatinine, Serum 1.57 mg/dL (0.55-1.02); EST Glomerular Filtration Rate 34 mL/min (>60); Est Glom Filt Rate - Afr Amer 41 mL/min (>60); Glucose 130 mg/dL (74-106); Potassium 4.2 mmol/L (3.5-5.1); Sodium Level 140 mmol/L (136-145)
== END | disposition home or self-care (01) ==
PROVIDERS: Nurse Practitioner Gerontology; PCP Family Medicine Geriatric Medicine; Visit Provider Physician Assistant Medical
DX: N18.32 Chronic kidney disease, stage 3b (principal); I50.33 Acute on chronic diastolic (congestive) heart failure; R06.09 Other forms of dyspnea; R53.83 Other fatigue
CPT/HCPCS: 36415; 80048; 83880; 85025

== ENCOUNTER → 2021-11-08 | Outpatient (CLI) | payer MEDICARE, OTHER, SELFPAY ==
[2021-11-08 16:52] LABS: Hematocrit 33.6 % (37-47); Hemoglobin 10.9 g/dL (12.0-15.0); Mean Corp Hgb Conc 32.4 g/dL (32-36); Mean Corpuscular Hgb 29.5 pg (27.0-32.0); Mean Corpuscular Volume 90.8 fL (81-99); Mean Platelet Vol. 10.3 fl (6.2-12.0); Platelet Count 305 K/mm3 (150-450); RBC Distribution Width CV 15.4 % (11.6-14.6); White Blood Count 8.3 K/mm3 (4.4-11.0)
[2021-11-08 17:15] LABS: Anion Gap 6 (5-15); BUN 27 mg/dL (7-18); BUN/Creat Ratio 16.1 RATIO (10-20); Calcium,Total 8.6 mg/dL (8.5-10.1); Chloride 108 mmol/L (98-107); Creatinine, Serum 1.68 mg/dL (0.55-1.02); EST Glomerular Filtration Rate 31 mL/min (>60); Est Glom Filt Rate - Afr Amer 37 mL/min (>60); Glucose 145 mg/dL (74-106); Phosphorus 3.6 mg/dL (2.5-4.9); Potassium 3.8 mmol/L (3.5-5.1); Sodium Level 142 mmol/L (136-145)
[2021-11-09 09:47] LABS: PTHIN 110.8 pg/mL (18.4-80.1)
== END | disposition home or self-care (01) ==
LOC: LAB 15:25
PROVIDERS: PCP Family Medicine Geriatric Medicine; Referring Provider Nurse Practitioner Gerontology; Visit Provider Nurse Practitioner Gerontology
DX: N18.32 Chronic kidney disease, stage 3b (principal)
CPT/HCPCS: 36415; 80048; 83970; 84100; 85027

== ENCOUNTER 2021-12-20 14:15 | Emergency (ER) | payer MEDICARE, OTHER, SELFPAY ==
[2021-12-20 14:16] VITALS: BP 143/82; PULSE 94; RESP 18; TEMP 36.8; O2SAT 94; BMI 41.1
--- NOTE | 2021-12-20 14:59 | RAD_ITS ---
STUDY: X-RAY - LEFT ANKLE REASON FOR EXAM: Female, 81 years old. Trauma TECHNIQUE: 3 view(s) of the ankle. COMPARISON: None. FINDINGS: Normal visualized distal tibia and fibula. Normal medial and lateral malleoli. Normal tibiotalar articulation and ankle mortise. Plantar spur. The visualized subtalar, talonavicular, calcaneocuboid and tarsal articulations are normal. Diffuse soft tissue swelling. RAD/Ankle min 3 Views IMPRESSION: Diffuse soft tissue swelling. Electronically Signed: Huey Gomez MD at 15:18 EDT ,
--- NOTE | 2021-12-20 14:59 | RAD_ITS ---
STUDY: X-RAY - LEFT FOOT CLINICAL: Female, 81 years old. Pain following injury. TECHNIQUE: 3 view(s) of the foot. COMPARISON: None. FINDINGS: There is a plantar calcaneal spur. Normal visualized subtalar, talonavicular, calcaneocuboid, tarsal and tarsometatarsal articulations. Normal metatarsi. There is degenerative arthrosis of the metatarsophalangeal joint of the hallux with a hallux valgus deformity. Normal tibial and fibular sesamoid bones. Normal interphalangeal joint of the great toe. Normal phalanges of the great toe. Normal second through fifth metatarsophalangeal joints. Normal interphalangeal joints and phalanges of the lesser toes. The soft tissue structures are unremarkable. RAD/Foot min 3 Views IMPRESSION: Plantar spur. 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 Electronically Signed: Huey Gomez MD at 15:17 EDT ,
[2021-12-20] MEDS: HYDROcodone Bitartrate/Apap 5/325 Tablet PO (15:13)
--- NOTE | 2021-12-20 15:24 | EX.ED.DYSGE1 ---
HPI History of Present Illness Chief Complaint: Lower Extremity Injury Informant: patient Onset/Context/Timing Onset: Today Location: L ankle Current Severity: Mild Maximum Severity: Severe Worsened by: use Associated Symptoms Associated Symptoms: swelling Narrative Narrative: Patient twisted her ankle in her yard earlier today. Denies any other injuries or complaints. Noted some associated swelling, more so on the lateral and anterior aspects. Worse with use. Patient is on blood thinners but denied hitting her head. Denies headache or neurologic complaints. [facility] Medical History Actinic keratosis Atrial fibrillation BMI 39.0-39.9,adult Breast cancer Chronic anticoagulation Chronic diastolic (congestive) heart failure Chronic kidney disease, stage 3b CKD (chronic kidney disease) stage 3, GFR 30-59 ml/min COPD (chronic obstructive pulmonary disease) Diabetes mellitus Diastolic dysfunction Disc degeneration, lumbar DMII (diabetes mellitus, type 2) Erosion of bladder suspension mesh Essential (primary) hypertension Fatigue Former smoker Hyperlipidemia Hypersomnia Hypertension Hypertension Hypothyroidism Hypothyroidism Hypoxia Longstanding persistent atrial fibrillation Non-rheumatic tricuspid valve insufficiency Obesity Overactive bladder Right hip pain Secondary pulmonary arterial hypertension Skin cancer Skin cancer, basal cell Skin lesion Stage 2 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 SHAKIRA (stress urinary incontinence, female) Tobacco dependence in remission UTI (urinary tract infection) Home Medications cholecalciferol (vitamin D3) 325 mcg (13,000 unit) capsule 325 mcg PO DAILY supplement 06/14/21 [History Last Taken 10/08/21] levothyroxine 200 mcg tablet 225 mcg PO DAILY thyroid 06/14/21 [History Last Taken 10/08/21] potassium chloride 20 mEq tablet,extended release 20 meq PO DAILY supplement 06/14/21 [History Last Taken 10/08/21] vibegron 75 mg tablet (Gemtesa) 75 mg PO DAILY OVERACTIVE BLADDER 06/14/21 [History Last Taken 10/08/21] rosuvastatin 20 mg tablet 20 mg PO QHS cholesterol #30 tabs 08/04/21 [Rx Last Taken 10/08/21] apixaban 2.5 mg tablet (Eliquis) 2.5 mg PO DAILY blood thinner 10/09/21 [History Last Taken 10/08/21] diltiazem HCl 240 mg capsule,extended release 24 hr 240 mg PO BID heart 10/09/21 [History Last Taken 10/08/21] glimepiride 1 mg tablet 1 mg PO DAILY blood sugar 10/09/21 [History Last Taken 10/08/21] acetaminophen 500 mg tablet 1,000 mg PO Q6H PRN PRN Pain Score 1-10 #0 tabs 10/24/21 [Rx Last Taken Unknown] furosemide 40 mg tablet 40 mg PO DAILY #30 tabs 10/24/21 [Rx Last Taken Unknown] insulin degludec 100 unit/mL (3 mL) subcutaneous pen 45 unit (0.45 mL) subcut DAILY blood sugar 30 days #15 mL 10/24/21 [Rx Last Taken 10/08/21] insulin lispro 100 unit/mL subcutaneous pen (Humalog KwikPen (U-100) Insulin) 10 unit (0.1 mL) subcut TIDAC 30 days #9 pens 10/24/21 [Rx Last Taken Unknown] metoprolol tartrate 100 mg tablet 100 mg PO DAILY 10/30/21 [History Last Taken Unknown] benazepril 40 mg tablet See Rx Instructions .Route .COMPLEX #90 TABLETS 11/21/21 [Rx Last Taken Unknown] Allergy/AdvReac Type Severity Reaction Status Date / Time Sulfa (Sulfonamide Allergy PEELING Verified 10/30/21 15:12 Antibiotics) RASH Family History Mother Colon cancer Cancer skin, bladder Daughter Cancer Thyroid Sister CAD (coronary artery disease) Surgical History History of cardioversion (03/20/19) History of excision of lesion History of hysterectomy History of left heart catheterization (05/31/14) History of partial mastectomy Hx of local excision of skin lesion Social History household members: none Smoking Status: Former smoker how long ago did patient quit smokin, 2p/day second hand exposure: Yes alcohol intake: current alcohol intake frequency: holidays/special occasions only substance use type: does not use ROS ROS ED Review of Systems ROS Unobtainable: Denies due to encephalopathy Constitutional Constitutional ED: Denies chills Eyes Eyes: Denies blurry vision ENT ENT ED: Denies ear pain Cardiovascular Cardiovascular: Denies chest pain Respiratory/Chest Respiratory/Chest: Denies cough Gastrointestinal Gastrointestinal: Denies abdominal pain Genitourinary Genitourinary ED: Denies dysuria Musculoskeletal Musculoskeletal: Reports arthralgias; Denies back pain, myalgias or neck pain Integumentary Denies abscess or Abrasions Neurologic Neurologic: Denies headache(s), paresthesias or weakness Psychiatric Psychiatric: Denies anxiety Endocrine Endocrinology: Denies cold intolerance Hematologic/Lymphatic Hematologic/Lymphatic: Denies systems reviewed and no addt'l complaints, except as documented Allergic/Immunologic Allergic/Immunologic ED: Denies mouth swelling EXAM Physical Exam Const Vital Signs: 12/20/21 14:16 Temperature 98.2 F Temperature Source Temporal Pulse Rate 94 Respiratory Rate 18 Blood Pressure 143/82 H Blood Pressure Mean 102 Pulse Ox 94 Oxygen Delivery Method Room Air Positive well nourished and well developed General Appearance ED: well developed HEENT Reports moist mucous membranes Negative for trauma Eyes PERRL and EOMs intact bilaterally Neck supple General: Negative for tenderness Resp normal respiratory effort and clear to auscultation bilaterally Cardio regular rate and regular rhythm GI normal to inspection, nondistended, normoactive bowel sounds Extremity Extremity Narrative: Mild edema to the left ankle laterally and anteriorly General Extremety ED: Yes edema and tenderness General Extremity: edema Neuro oriented x3, CN's II-XII intact bilaterally and no sensory deficits noted Sensorium / Orientation: alert Motor Exam: strength 5/5 throughout Psych mental status grossly normal Skin no rashes or lesions noted MDM MDM MDM Narrative Medical decision making narrative: X-rays of the left foot and ankle were reviewed by the radiologist and myself. This showed chronic changes. No acute abnormalities or fractures. Patient has a walker at home. She was dispensed an Aircast. Rest, ice, elevate. Return for any new or worsening issues. She feels safe and comfortable going home. Disposition discharge home Impression #1 left ankle sprain Radiography Diagnostic Testing: Clinical Impression(s) from Imaging Studies Ankle X-Ray 12/20/21 14:59 IMPRESSION: Diffuse soft tissue swelling. Electronically Signed: Huey Gomez MD at 15:18 EDT , Foot X-Ray 12/20/21 14:59 IMPRESSION: Plantar spur. 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 Electronically Signed: Huey Gomez MD at 15:17 EDT , Discharge Plan Triage Chief Complaint: Lower Extremity Injury ED Provider: Javier Maher Dx/Rx/DC Orders Instructions: ED Ankle Sprain (Adult) Prescriptions: No Action levothyroxine 200 mcg tablet 225 mcg PO DAILY cholecalciferol (vitamin D3) 325 mcg (13,000 unit) capsule 325 mcg PO DAILY potassium chloride 20 mEq tablet extended release 20 meq PO DAILY Gemtesa 75 mg tablet 75 mg PO DAILY metoprolol tartrate 100 mg tablet 100 mg PO DAILY Eliquis 2.5 mg tablet 2.5 mg PO DAILY diltiazem HCl 240 mg capsule,extended release 24hr 240 mg PO BID glimepiride 1 MG tablet 1 mg PO DAILY furosemide 40 mg Tablet 40 mg PO DAILY Qty: 30 0RF acetaminophen 500 mg Tablet 1,000 mg PO Q6H PRN PRN (Reason: Pain Score 1-10) Qty: 0 0RF insulin lispro [Humalog KwikPen Insulin] 100 unit/mL Insulin Pen 10 unit subcut TIDAC 30 Days Qty: 9 0RF insulin degludec 100 unit/mL (3 mL) insulin pen 45 unit SC DAILY 30 Days Qty: 15 0RF rosuvastatin 20 mg tablet 20 mg PO QHS Qty: 30 11RF Hold Instructions: Home Medication placed on hold at Doctor's office benazepril 40 mg tablet See Rx Instructions .ROUTE .COMPLEX Qty: 90 3RF Dose Instruction: Take 1 tablet by mouth once daily Rx Instructions: Take 1 tablet by mouth once daily Primary Care Provider: Alexy Douglas Chi Referrals: Alexy Douglas Chi, MD [Primary Care Provider] - Disposition Disposition: Home, Self Care
== END 2021-12-20 15:46 | disposition home or self-care (01) ==
PROVIDERS: Emergency Provider Emergency Medicine; PCP Family Medicine Geriatric Medicine; Visit Provider Emergency Medicine
DX: S93.402A Sprain of unspecified ligament of left ankle, initial encounter (principal); J44.9 Chronic obstructive pulmonary disease, unspecified; I13.0 Hypertensive heart and chronic kidney disease with heart failure and stage 1 through stage 4 chronic kidney disease, or unspecified chronic kidney disease; I50.32 Chronic diastolic (congestive) heart failure; E11.22 Type 2 diabetes mellitus with diabetic chronic kidney disease; I48.91 Unspecified atrial fibrillation; N18.32 Chronic kidney disease, stage 3b; E78.5 Hyperlipidemia, unspecified; Z87.891 Personal history of nicotine dependence; Z85.3 Personal history of malignant neoplasm of breast; W50.2XXA Accidental twist by another person, initial encounter; E03.9 Hypothyroidism, unspecified
CPT/HCPCS: 73610; 73630; 99285

== ENCOUNTER → 2022-01-15 | Outpatient (CLI) | payer MEDICARE, OTHER, SELFPAY ==
[2022-01-15 15:16] LABS: Absolute Lymphocyte Count 1.82 X10^3/uL (0.83-4.51); Absolute Neutrophil Count 7.8 X10^3/uL (2.0-7.7); Basophil# 0.06 X10^3/uL; Basophil% 0.6 % (0-1); Eosinophil# 0.26 X10^3/uL; Eosinophils% 2.4 % (0-5); Hematocrit 34.6 % (37-47); Lymphocyte # 1.82 X10^3/ul (0.83-4.51); Lymphocyte % 17.1 % (19-41); Mean Corp Hgb Conc 31.8 g/dL (32-36); Mean Corpuscular Hgb 29.1 pg (27.0-32.0); Mean Corpuscular Volume 91.5 fL (81-99); Mean Platelet Vol. 10.6 fl (6.2-12.0); Monocyte% 5.6 % (0-10); NRBC Flagged by Analyzer 0 % (0-5); Neutrophil # 7.82 X10^3/uL (2.7-7.7); Neutrophil % 73.7 % (47-70); Platelet Count 301 K/mm3 (150-450); RBC Distribution Width CV 14.1 % (11.6-14.6); RBC Distribution Width SD 47.2 fl (35.1-43.9); Red Blood Count 3.78 M/mm3 (4.2-5.4); White Blood Count 10.6 K/mm3 (4.4-11.0)
[2022-01-15 16:08] LABS: ALB/GLOB Ratio 0.9 RATIO (0.9-2.4); AST(SGOT) 11 U/L (15-37); Alanine Aminotransfer ALT/SGPT 14 U/L (13-56); Albumin, Serum 2.9 g/dL (3.2-5.0); Alkaline Phosphatase 87 U/L (45-117); Anion Gap 6 (5-15); BUN 24 mg/dL (7-18); BUN/Creat Ratio 15.3 RATIO (10-20); Calcium,Total 8.6 mg/dL (8.5-10.1); Chloride 106 mmol/L (98-107); Creatinine, Serum 1.57 mg/dL (0.55-1.02); EST Glomerular Filtration Rate 33 mL/min (>60); Est Glom Filt Rate - Afr Amer 41 mL/min (>60); Globulin 3.3 g/dL (2.2-4.2); Glucose 119 mg/dL (74-106); Potassium 3.7 mmol/L (3.5-5.1); Protein, Total 6.2 g/dL (6.4-8.2); Sodium Level 140 mmol/L (136-145)
[2022-01-15 17:16] LABS: Vitamin D,25 Hydroxy 43.8 ng/mL
[2022-01-16 14:53] LABS: Ferritin 30 ng/mL (8-252); Iron 39 ug/dL (50-170); Iron Binding Capacity,Total 286 ug/dL (250-450); PERCENT IRON SATURATION 13.6 % (15.0-55.0); Phosphorus 3.7 mg/dL (2.5-4.9)
== END | disposition home or self-care (01) ==
LOC: POLAB3 14:40
PROVIDERS: PCP Family Medicine Geriatric Medicine; Visit Provider Family Medicine Geriatric Medicine
DX: N18.32 Chronic kidney disease, stage 3b (principal); E11.22 Type 2 diabetes mellitus with diabetic chronic kidney disease; I12.9 Hypertensive chronic kidney disease with stage 1 through stage 4 chronic kidney disease, or unspecified chronic kidney disease; E55.9 Vitamin D deficiency, unspecified
CPT/HCPCS: 36415; 80053; 82306; 82728; 83540; 83550; 84100; 84443; 85025

== ENCOUNTER → 2022-01-16 | Outpatient (CLI) | payer MEDICARE, OTHER, SELFPAY ==
[2022-01-16 15:24] LABS: Protein, Urine (Random) 114.4 mg/dL (<11.9); Protein:Creat Ratio 847 mg/g CRE (0-200)
== END | disposition home or self-care (01) ==
LOC: LAB 13:34
PROVIDERS: PCP Family Medicine Geriatric Medicine; Referring Provider Internal Medicine Nephrology; Visit Provider Internal Medicine Nephrology
DX: N18.32 Chronic kidney disease, stage 3b (principal); E11.22 Type 2 diabetes mellitus with diabetic chronic kidney disease; D63.8 Anemia in other chronic diseases classified elsewhere
CPT/HCPCS: 82570; 84156

== ENCOUNTER → 2022-02-13 | Outpatient (CLI) | payer MEDICARE, OTHER, SELFPAY | END | disposition home or self-care (01) | LOC: PSN 13:14 | PROVIDERS: PCP Family Medicine Geriatric Medicine; Referring Provider Family Medicine Geriatric Medicine; Visit Provider Family Medicine Geriatric Medicine | DX: R68.83 Chills (without fever) (principal) | CPT/HCPCS: 87635; 87804; 87807; C9803; U0003; U0005 ==

== ENCOUNTER → 2022-03-20 | Outpatient (CLI) | payer MEDICARE, OTHER, SELFPAY ==
[2022-03-20 14:31] LABS: Thyroid Stim Hormone (TSH) 6.22 uIU/mL (0.358-3.74)
== END | disposition home or self-care (01) ==
LOC: LAB 13:07
PROVIDERS: PCP Family Medicine Geriatric Medicine; Visit Provider Family Medicine Geriatric Medicine
DX: E03.9 Hypothyroidism, unspecified (principal)
CPT/HCPCS: 36415; 84443

== ENCOUNTER → 2022-04-04 | Outpatient (CLI) | payer MEDICARE, OTHER, SELFPAY ==
[2022-04-04 10:30] LABS: Absolute Lymphocyte Count 1.65 X10^3/uL (0.83-4.51); Absolute Neutrophil Count 6.9 X10^3/uL (2.0-7.7); Basophil# 0.03 X10^3/uL; Basophil% 0.3 % (0-1); Eosinophil# 0.23 X10^3/uL; Eosinophils% 2.4 % (0-5); Hemoglobin 11.8 g/dL (12.0-15.0); Lymphocyte # 1.65 X10^3/ul (0.83-4.51); Lymphocyte % 17.3 % (19-41); Mean Corp Hgb Conc 31.1 g/dL (32-36); Mean Corpuscular Hgb 28.4 pg (27.0-32.0); Mean Corpuscular Volume 91.3 fL (81-99); Monocyte# 0.66 X10^3/uL; Monocyte% 6.9 % (0-10); NRBC Flagged by Analyzer 0 % (0-5); Neutrophil # 6.88 X10^3/uL (2.7-7.7); Neutrophil % 72.1 % (47-70); Platelet Count 250 K/mm3 (150-450); RBC Distribution Width CV 14.9 % (11.6-14.6); RBC Distribution Width SD 49.9 fl (35.1-43.9); Red Blood Count 4.16 M/mm3 (4.2-5.4); White Blood Count 9.6 K/mm3 (4.4-11.0)
--- NOTE | 2022-04-04 10:30 | RAD_ITS ---
STUDY: X-RAY CHEST REASON FOR EXAM: Female, 82 years old. HARDEN TECHNIQUE: PA and lateral views of the chest. COMPARISON: Comparison is made with prior study dated 10/09/2021. FINDINGS: Elevation of the left hemidiaphragm. Small left pleural effusion with left basilar atelectasis. There has been improvement as compared to prior study. Stable mild increased linear markings at the right lung base suggestive of atelectasis and/or scarring. There is no demonstrated pleural abnormality. Normal size heart. Normal mediastinum and binh. Normal visualized pulmonary arteries. There is atherosclerotic tortuosity of the aortic arch and descending thoracic aorta. There are diffuse degenerative changes of the visualized thoracic spine. There is degenerative osteoarthritis of the bilateral shoulders. There is no demonstrated abnormality of the visualized soft tissue structures of the upper abdomen. RAD/Chest PA and Lateral IMPRESSION: Small left pleural effusion with left basilar atelectasis. This has improved as compared to prior study. Electronically Signed: Huey Gomez MD at 11:14 EST ,
[2022-04-04 10:41] LABS: Anion Gap 3 (5-15); BUN 19 mg/dL (7-18); BUN/Creat Ratio 13.3 RATIO (10-20); Calcium,Total 8.8 mg/dL (8.5-10.1); Chloride 107 mmol/L (98-107); Creatinine, Serum 1.43 mg/dL (0.55-1.02); EST Glomerular Filtration Rate 37 mL/min (>60); Est Glom Filt Rate - Afr Amer 45 mL/min (>60); Glucose 165 mg/dL (74-106); Magnesium 2.2 mg/dL (1.6-2.6); Potassium 4.1 mmol/L (3.5-5.1); Sodium Level 142 mmol/L (136-145)
[2022-04-04 10:43] LABS: BNP,B-Type NATRIURETIC PEPTIDE 335.9 pg/mL (0-100)
[2022-04-04 10:46] LABS: Troponin-I HS 17 pg/mL (3.0-54.0)
== END | disposition home or self-care (01) ==
LOC: LAB 10:13
PROVIDERS: PCP Family Medicine Geriatric Medicine; Referring Provider Physician Assistant Medical; Visit Provider Physician Assistant Medical
DX: J90 Pleural effusion, not elsewhere classified (principal); R93.89 Abnormal findings on diagnostic imaging of other specified body structures; J98.11 Atelectasis; M19.012 Primary osteoarthritis, left shoulder; M19.011 Primary osteoarthritis, right shoulder; R06.09 Other forms of dyspnea; R07.9 Chest pain, unspecified; G47.10 Hypersomnia, unspecified
CPT/HCPCS: 36415; 71046; 80048; 83735; 83880; 84484; 85025

== ENCOUNTER → 2022-04-10 | Outpatient (CLI) | payer MEDICARE, OTHER, SELFPAY ==
--- NOTE | 2022-04-13 18:43 | STRESSREP ---
Stress Test Report Pharmacologic myocardial perfusion stress test. 82-year-old lady with a history of chest pain Resting EKG demonstrates atrial fibrillation with a rate of 83 bpm premature ventricular complexes. Resting blood pressure is 154/88 mmHg. 0.4 mg of regadenoson was infused per usual protocol followed by rapid intravenous saline flush injection. Continuous EKG monitoring was performed. The maximum heart rate was 106 bpm which was 77% of max impacted heart rate the maximum workload was 1 metabolic equivalent. At rest there were no ST or T wave changes noted to suggest ischemia and at peak infusion nonspecific ST changes were noted which did not meet the criteria for ischemia. No clinical angina is noted. The final blood pressure was 148/84 mmHg. Myocardial perfusion protocol. 15.0 mCi of technetium 99m sestamibi was injected at rest. 0.4 mg of regadenoson was infused per usual protocol. At peak infusion 44.1 mCi of technetium 99m sestamibi was injected stress images were obtained stress and rest images were reconstructed and compared in the short axis vertical long and horizontal long axis. Gated images were also obtained. Perfusion SPECT analysis: Review of the stress images demonstrate normal uptake of tracer noted in all areas of the myocardium. The resting images similar demonstrated normal uptake of tracer noted in all areas of the myocardium. No areas of reversibility are noted to suggest ischemia and no previous infarct is noted. Gated SPECT analysis: The gated ejection fraction is 50. Conclusion: Normal pharmacologic myocardial perfusion stress test. Low normal ejection fraction.
== END | disposition home or self-care (01) ==
PROVIDERS: PCP Family Medicine Geriatric Medicine; Visit Provider Physician Assistant Medical
DX: R06.09 Other forms of dyspnea (principal); R07.9 Chest pain, unspecified
CPT/HCPCS: 78452; 93017; A9500; A4216; J2785

== ENCOUNTER → 2022-04-18 | Outpatient (CLI) | payer MEDICARE, OTHER, SELFPAY ==
[2022-04-18 17:51] LABS: Absolute Lymphocyte Count 3.04 X10^3/uL (0.83-4.51); Absolute Neutrophil Count 8.5 X10^3/uL (2.0-7.7); Basophil# 0.08 X10^3/uL; Basophil% 0.6 % (0-1); Eosinophil# 0.18 X10^3/uL; Eosinophils% 1.4 % (0-5); Hematocrit 40.9 % (37-47); Hemoglobin 12.9 g/dL (12.0-15.0); Lymphocyte # 3.04 X10^3/ul (0.83-4.51); Lymphocyte % 23.8 % (19-41); Mean Corp Hgb Conc 31.5 g/dL (32-36); Mean Corpuscular Volume 88.7 fL (81-99); Mean Platelet Vol. 11.3 fl (6.2-12.0); Monocyte# 0.88 X10^3/uL; Monocyte% 6.9 % (0-10); NRBC Flagged by Analyzer 0 % (0-5); Neutrophil # 8.52 X10^3/uL (2.7-7.7); Neutrophil % 66.7 % (47-70); Platelet Count 335 K/mm3 (150-450); RBC Distribution Width CV 14.8 % (11.6-14.6); RBC Distribution Width SD 47.6 fl (35.1-43.9); Red Blood Count 4.61 M/mm3 (4.2-5.4); White Blood Count 12.8 K/mm3 (4.4-11.0)
[2022-04-18 18:06] LABS: Vitamin D,25 Hydroxy 42.2 ng/mL
[2022-04-18 18:53] LABS: ALB/GLOB Ratio 0.8 RATIO (0.9-2.4); AST(SGOT) 14 U/L (15-37); Alanine Aminotransfer ALT/SGPT 16 U/L (13-56); Albumin, Serum 3.3 g/dL (3.2-5.0); Alkaline Phosphatase 105 U/L (45-117); Anion Gap 8 (5-15); BUN 23 mg/dL (7-18); BUN/Creat Ratio 16.7 RATIO (10-20); Calcium,Total 9.2 mg/dL (8.5-10.1); Chloride 104 mmol/L (98-107); Creatinine, Serum 1.38 mg/dL (0.55-1.02); EST Glomerular Filtration Rate 39 mL/min (>60); Est Glom Filt Rate - Afr Amer 47 mL/min (>60); Globulin 4.1 g/dL (2.2-4.2); Glucose 80 mg/dL (74-106); Potassium 3.7 mmol/L (3.5-5.1); Protein, Total 7.4 g/dL (6.4-8.2); Sodium Level 142 mmol/L (136-145)
== END | disposition home or self-care (01) ==
LOC: POLAB3 15:12
PROVIDERS: PCP Family Medicine Geriatric Medicine; Visit Provider Family Medicine Geriatric Medicine
DX: E55.9 Vitamin D deficiency, unspecified (principal); E11.65 Type 2 diabetes mellitus with hyperglycemia; I10 Essential (primary) hypertension
CPT/HCPCS: 36415; 80053; 82306; 85025

== ENCOUNTER → 2022-05-02 | Outpatient (CLI) | payer MEDICARE, OTHER, SELFPAY ==
[2022-05-02 18:11] LABS: Anion Gap 5 (5-15); BUN 28 mg/dL (7-18); BUN/Creat Ratio 16.8 RATIO (10-20); Calcium,Total 9.1 mg/dL (8.5-10.1); Chloride 107 mmol/L (98-107); Creatinine, Serum 1.67 mg/dL (0.55-1.02); EST Glomerular Filtration Rate 31 mL/min (>60); Est Glom Filt Rate - Afr Amer 38 mL/min (>60); Glucose 131 mg/dL (74-106); Potassium 3.5 mmol/L (3.5-5.1); Sodium Level 143 mmol/L (136-145)
== END | disposition home or self-care (01) ==
LOC: POLAB3 15:33
PROVIDERS: PCP Family Medicine Geriatric Medicine; Visit Provider Family Medicine Geriatric Medicine
DX: I50.32 Chronic diastolic (congestive) heart failure (principal)
CPT/HCPCS: 36415; 80048

== ENCOUNTER → 2022-05-11 | Outpatient (CLI) | payer MEDICARE, OTHER, SELFPAY ==
--- NOTE | 2022-05-11 10:56 | RAD_ITS ---
STUDY: X-RAY CHEST REASON FOR EXAM: Female, 82 years old. SOB TECHNIQUE: PA and lateral views of the chest. COMPARISON: Comparison is made with prior study dated 04/04/2022. FINDINGS: Stable elevation of the left hemidiaphragm with the blunting of left costophrenic angle and infiltration in the left lower lobe. Stable mild increased markings at the right lung base. Normal size heart. Normal mediastinum and binh. Normal visualized pulmonary arteries. Normal visualized aortic arch and descending thoracic aorta. There are diffuse degenerative changes of the visualized thoracic spine. Normal visualized ribs, clavicles, and shoulders. There is no demonstrated abnormality of the visualized soft tissue structures of the upper abdomen. RAD/Chest PA and Lateral IMPRESSION: Small left pleural effusion with left basilar atelectasis and/or infiltration. There has been no change. Electronically Signed: Huey Gomez MD at 11:13 EST ,
[2022-05-11 12:54] LABS: Absolute Lymphocyte Count 1.62 X10^3/uL (0.83-4.51); Absolute Neutrophil Count 7.2 X10^3/uL (2.0-7.7); Basophil# 0.05 X10^3/uL; Basophil% 0.5 % (0-1); Eosinophil# 0.28 X10^3/uL; Eosinophils% 2.9 % (0-5); Hematocrit 37.4 % (37-47); Hemoglobin 11.8 g/dL (12.0-15.0); Lymphocyte # 1.62 X10^3/ul (0.83-4.51); Lymphocyte % 16.6 % (19-41); Mean Corp Hgb Conc 31.6 g/dL (32-36); Mean Corpuscular Hgb 28.2 pg (27.0-32.0); Mean Corpuscular Volume 89.5 fL (81-99); Mean Platelet Vol. 11.7 fl (6.2-12.0); Monocyte# 0.59 X10^3/uL; NRBC Flagged by Analyzer 0 % (0-5); Neutrophil % 73.6 % (47-70); Platelet Count 265 K/mm3 (150-450); RBC Distribution Width CV 14.6 % (11.6-14.6); RBC Distribution Width SD 47.5 fl (35.1-43.9); Red Blood Count 4.18 M/mm3 (4.2-5.4); White Blood Count 9.8 K/mm3 (4.4-11.0)
[2022-05-11 13:34] LABS: ALB/GLOB Ratio 0.8 RATIO (0.9-2.4); AST(SGOT) 7 U/L (15-37); Alanine Aminotransfer ALT/SGPT 12 U/L (13-56); Albumin, Serum 2.9 g/dL (3.2-5.0); Alkaline Phosphatase 90 U/L (45-117); Anion Gap 7 (5-15); BUN 29 mg/dL (7-18); BUN/Creat Ratio 20.9 RATIO (10-20); Calcium,Total 9.1 mg/dL (8.5-10.1); Chloride 107 mmol/L (98-107); Creatinine, Serum 1.39 mg/dL (0.55-1.02); EST Glomerular Filtration Rate 39 mL/min (>60); Est Glom Filt Rate - Afr Amer 47 mL/min (>60); Globulin 3.5 g/dL (2.2-4.2); Glucose 243 mg/dL (74-106); Potassium 3.8 mmol/L (3.5-5.1); Protein, Total 6.4 g/dL (6.4-8.2); Sodium Level 143 mmol/L (136-145); Thyroid Stim Hormone (TSH) 0.56 uIU/mL (0.358-3.74)
[2022-05-11 15:41] LABS: BNP,B-Type NATRIURETIC PEPTIDE 238.1 pg/mL (0-100)
== END | disposition home or self-care (01) ==
PROVIDERS: PCP Family Medicine Geriatric Medicine; Visit Provider Family Medicine Geriatric Medicine
DX: J96.01 Acute respiratory failure with hypoxia (principal); I50.32 Chronic diastolic (congestive) heart failure; E03.9 Hypothyroidism, unspecified
CPT/HCPCS: 36415; 71046; 80053; 83880; 84443; 85025

== ENCOUNTER → 2022-05-14 | Outpatient (CLI) | payer MEDICARE, OTHER, SELFPAY ==
[2022-05-14 17:53] LABS: Anion Gap 4 (5-15); BUN 29 mg/dL (7-18); BUN/Creat Ratio 16.5 RATIO (10-20); Calcium,Total 9.1 mg/dL (8.5-10.1); Chloride 105 mmol/L (98-107); Creatinine, Serum 1.76 mg/dL (0.55-1.02); EST Glomerular Filtration Rate 29 mL/min (>60); Est Glom Filt Rate - Afr Amer 35 mL/min (>60); Glucose 165 mg/dL (74-106); Potassium 4.1 mmol/L (3.5-5.1); Sodium Level 140 mmol/L (136-145)
== END | disposition home or self-care (01) ==
LOC: POLAB3 15:46
PROVIDERS: PCP Family Medicine Geriatric Medicine; Visit Provider Family Medicine Geriatric Medicine
DX: E87.6 Hypokalemia (principal)
CPT/HCPCS: 36415; 80048

== ENCOUNTER → 2022-05-18 | Outpatient (CLI) | payer MEDICARE, OTHER, SELFPAY ==
--- NOTE | 2022-05-18 10:45 | RAD_ITS ---
STUDY: X-RAY - LEFT FOOT CLINICAL: Female, 82 years old. Foot pain. TECHNIQUE: 3 view(s) of the foot. COMPARISON: December 2021. FINDINGS: Mild arthrosis of the tibiotalar joint. Mild arthrosis of the subtalar joint. Inferior calcaneal spur. Os trigonum, a normal variant. Moderate arthrosis of the TMT joints. Moderate arthrosis of the MTP and IP joints. Minimal hallux valgus deformity. Lateral soft tissue swelling over the distal fibula. RAD/Foot min 3 Views IMPRESSION: Stable osteopenia, osteoarthritic changes, calcaneal spur and minimal hallux valgus deformity. Healing distal fibular fracture noted on left ankle images. Electronically Signed: Woody Mast, at 13:06 EST ,
--- NOTE | 2022-05-18 10:46 | RAD_ITS ---
STUDY: X-RAY - LEFT ANKLE REASON FOR EXAM: Female, 82 years old. ANKLE PAIN TECHNIQUE: 3 view(s) of the ankle. COMPARISON: None. FINDINGS: Marked osteopenia. Healing oblique fracture of the distal fibula originating at the ankle mortise deformity. Mild arthrosis of the tibiotalar joint. Mild arthrosis of the subtalar joint. Inferior calcaneal spur. Mild arthrosis of the midfoot. Mild arthrosis of the TMT joints. Soft tissue swelling over the lateral malleolus. RAD/Ankle min 3 Views IMPRESSION: Osteopenia with calcaneal spurring and osteoarthritic changes. Healing fracture of the distal fibula with deformity and soft tissue swelling laterally. Electronically Signed: Woody Mast, at 13:00 EST ,
[2022-05-18 12:54] LABS: Anion Gap 8 (5-15); BUN 32 mg/dL (7-18); BUN/Creat Ratio 21.3 RATIO (10-20); Calcium,Total 9.2 mg/dL (8.5-10.1); Chloride 104 mmol/L (98-107); EST Glomerular Filtration Rate 35 mL/min (>60); Est Glom Filt Rate - Afr Amer 43 mL/min (>60); Glucose 185 mg/dL (74-106); Sodium Level 139 mmol/L (136-145)
== END | disposition home or self-care (01) ==
PROVIDERS: PCP Family Medicine Geriatric Medicine; Referring Provider Family Medicine Geriatric Medicine; Visit Provider Family Medicine Geriatric Medicine
DX: I50.32 Chronic diastolic (congestive) heart failure (principal); M25.572 Pain in left ankle and joints of left foot; M79.672 Pain in left foot
CPT/HCPCS: 36415; 73610; 73630; 80048

== ENCOUNTER → 2022-07-16 | Outpatient (CLI) | payer MEDICARE, OTHER, SELFPAY ==
[2022-07-16 13:14] LABS: Absolute Lymphocyte Count 2.12 X10^3/uL (0.83-4.51); Absolute Neutrophil Count 8.8 X10^3/uL (2.0-7.7); Basophil# 0.06 X10^3/uL; Basophil% 0.5 % (0-1); Eosinophil# 0.38 X10^3/uL; Eosinophils% 3.1 % (0-5); Hematocrit 42.3 % (37-47); Hemoglobin 12.9 g/dL (12.0-15.0); Lymphocyte # 2.12 X10^3/ul (0.83-4.51); Lymphocyte % 17.3 % (19-41); Mean Corp Hgb Conc 30.5 g/dL (32-36); Mean Corpuscular Hgb 28.3 pg (27.0-32.0); Mean Corpuscular Volume 92.8 fL (81-99); Mean Platelet Vol. 11.1 fl (6.2-12.0); Monocyte# 0.79 X10^3/uL; Monocyte% 6.4 % (0-10); NRBC Flagged by Analyzer 0 % (0-5); Neutrophil # 8.81 X10^3/uL (2.7-7.7); Neutrophil % 71.9 % (47-70); Platelet Count 314 K/mm3 (150-450); RBC Distribution Width CV 14.6 % (11.6-14.6); RBC Distribution Width SD 49.8 fl (35.1-43.9); Red Blood Count 4.56 M/mm3 (4.2-5.4); White Blood Count 12.3 K/mm3 (4.4-11.0)
[2022-07-16 13:31] LABS: Vitamin D,25 Hydroxy 54.2 ng/mL
[2022-07-16 13:44] LABS: ALB/GLOB Ratio 0.8 RATIO (0.9-2.4); AST(SGOT) 11 U/L (15-37); Alanine Aminotransfer ALT/SGPT 16 U/L (13-56); Alkaline Phosphatase 100 U/L (45-117); Anion Gap 7 (5-15); BUN 23 mg/dL (7-18); BUN/Creat Ratio 18.1 RATIO (10-20); Chloride 106 mmol/L (98-107); Creatinine, Serum 1.27 mg/dL (0.55-1.02); EST Glomerular Filtration Rate 43 mL/min (>60); Est Glom Filt Rate - Afr Amer 52 mL/min (>60); Globulin 3.8 g/dL (2.2-4.2); Glucose 170 mg/dL (74-106); PTHIN 113.8 pg/mL (18.4-80.1); Phosphorus 3.4 mg/dL (2.5-4.9); Potassium 3.9 mmol/L (3.5-5.1); Protein, Total 6.8 g/dL (6.4-8.2); Sodium Level 143 mmol/L (136-145); Thyroid Stim Hormone (TSH) 2.58 uIU/mL (0.358-3.74)
[2022-07-16 13:52] LABS: Protein, Urine (Random) 260.9 mg/dL (<11.9); Protein:Creat Ratio 2121 mg/g CRE (0-200)
== END | disposition home or self-care (01) ==
LOC: POLAB3 11:06
PROVIDERS: PCP Family Medicine Geriatric Medicine; Visit Provider Internal Medicine Nephrology
DX: N18.32 Chronic kidney disease, stage 3b (principal); E11.22 Type 2 diabetes mellitus with diabetic chronic kidney disease; E11.65 Type 2 diabetes mellitus with hyperglycemia; D50.9 Iron deficiency anemia, unspecified; E55.9 Vitamin D deficiency, unspecified; I10 Essential (primary) hypertension
CPT/HCPCS: 36415; 80053; 82306; 82570; 83970; 84100; 84156; 84443; 85025

== ENCOUNTER → 2022-10-08 | Outpatient (CLI) | payer MEDICARE, OTHER, SELFPAY ==
[2022-10-08 12:11] LABS: Absolute Lymphocyte Count 1.58 X10^3/uL (0.83-4.51); Absolute Neutrophil Count 7.1 X10^3/uL (2.0-7.7); Basophil# 0.06 X10^3/uL; Basophil% 0.6 % (0-1); Eosinophils% 3.1 % (0-5); Hemoglobin 12.7 g/dL (12.0-15.0); Lymphocyte # 1.58 X10^3/ul (0.83-4.51); Lymphocyte % 16.3 % (19-41); Mean Corp Hgb Conc 30.2 g/dL (32-36); Mean Corpuscular Hgb 28.3 pg (27.0-32.0); Mean Corpuscular Volume 93.8 fL (81-99); Mean Platelet Vol. 11.7 fl (6.2-12.0); Monocyte# 0.66 X10^3/uL; Monocyte% 6.8 % (0-10); NRBC Flagged by Analyzer 0 % (0-5); Neutrophil # 7.07 X10^3/uL (2.7-7.7); Neutrophil % 72.7 % (47-70); Platelet Count 260 K/mm3 (150-450); RBC Distribution Width CV 13.5 % (11.6-14.6); Red Blood Count 4.48 M/mm3 (4.2-5.4); White Blood Count 9.7 K/mm3 (4.4-11.0)
[2022-10-08 12:20] LABS: Prothrombin Time (Protime)PT. 13.4 SECONDS (11.7-14.9)
[2022-10-08 12:21] LABS: Partial Thromboplast Time 25.7 Seconds (24.1-36.2)
[2022-10-08 12:30] LABS: ALB/GLOB Ratio 0.9 RATIO (0.9-2.4); AST(SGOT) 11 U/L (15-37); Alanine Aminotransfer ALT/SGPT 13 U/L (13-56); Albumin, Serum 3.1 g/dL (3.2-5.0); Alkaline Phosphatase 100 U/L (45-117); Anion Gap 4 (5-15); BUN 24 mg/dL (7-18); BUN/Creat Ratio 16.4 RATIO (10-20); Calcium,Total 8.8 mg/dL (8.5-10.1); Chloride 108 mmol/L (98-107); Creatinine, Serum 1.46 mg/dL (0.55-1.02); EST Glomerular Filtration Rate 36 mL/min (>60); Est Glom Filt Rate - Afr Amer 44 mL/min (>60); Globulin 3.3 g/dL (2.2-4.2); Glucose 124 mg/dL (74-106); Potassium 4.3 mmol/L (3.5-5.1); Protein, Total 6.4 g/dL (6.4-8.2); Sodium Level 141 mmol/L (136-145)
== END | disposition home or self-care (01) ==
LOC: POLAB3 11:04
PROVIDERS: PCP Family Medicine Geriatric Medicine; Visit Provider Family Medicine Geriatric Medicine
DX: Z01.818 Encounter for other preprocedural examination (principal); I48.91 Unspecified atrial fibrillation
CPT/HCPCS: 36415; 80053; 85025; 85610; 85730

== ENCOUNTER → 2022-10-15 | Outpatient (CLI) | payer MEDICARE, OTHER, SELFPAY ==
[2022-10-15 12:36] LABS: Absolute Neutrophil Count 6.3 X10^3/uL (2.0-7.7); Basophil# 0.06 X10^3/uL; Basophil% 0.7 % (0-1); Eosinophil# 0.36 X10^3/uL; Hematocrit 40.8 % (37-47); Hemoglobin 12.8 g/dL (12.0-15.0); Lymphocyte % 17.9 % (19-41); Mean Corp Hgb Conc 31.4 g/dL (32-36); Mean Corpuscular Hgb 28.8 pg (27.0-32.0); Mean Corpuscular Volume 91.7 fL (81-99); Mean Platelet Vol. 11.4 fl (6.2-12.0); Monocyte# 0.54 X10^3/uL; Monocyte% 6.1 % (0-10); NRBC Flagged by Analyzer 0 % (0-5); Neutrophil # 6.32 X10^3/uL (2.7-7.7); Neutrophil % 70.9 % (47-70); Platelet Count 258 K/mm3 (150-450); RBC Distribution Width CV 13.4 % (11.6-14.6); RBC Distribution Width SD 45.4 fl (35.1-43.9); Red Blood Count 4.45 M/mm3 (4.2-5.4); White Blood Count 8.9 K/mm3 (4.4-11.0)
[2022-10-15 12:53] LABS: Vitamin D,25 Hydroxy 36.5 ng/mL
[2022-10-15 14:24] LABS: Hemoglobin A1c 6.9 % (3.8-5.6)
[2022-10-15 14:33] LABS: ALB/GLOB Ratio 0.9 RATIO (0.9-2.4); AST(SGOT) 11 U/L (15-37); Alanine Aminotransfer ALT/SGPT 11 U/L (13-56); Albumin, Serum 2.9 g/dL (3.2-5.0); Alkaline Phosphatase 104 U/L (45-117); Anion Gap 5 (5-15); BUN 31 mg/dL (7-18); BUN/Creat Ratio 18.3 RATIO (10-20); Calcium,Total 8.7 mg/dL (8.5-10.1); Chloride 106 mmol/L (98-107); Creatinine, Serum 1.69 mg/dL (0.55-1.02); EST Glomerular Filtration Rate 31 mL/min (>60); Est Glom Filt Rate - Afr Amer 37 mL/min (>60); Globulin 3.4 g/dL (2.2-4.2); Glucose 169 mg/dL (74-106); Potassium 4.2 mmol/L (3.5-5.1); Protein, Total 6.3 g/dL (6.4-8.2); Sodium Level 140 mmol/L (136-145); Thyroid Stim Hormone (TSH) 2.92 uIU/mL (0.358-3.74)
== END | disposition home or self-care (01) ==
PROVIDERS: PCP Family Medicine Geriatric Medicine; Visit Provider Family Medicine Geriatric Medicine
DX: E11.65 Type 2 diabetes mellitus with hyperglycemia (principal); I10 Essential (primary) hypertension; E55.9 Vitamin D deficiency, unspecified
CPT/HCPCS: 36415; 80053; 82306; 83036; 84443; 85025

== ENCOUNTER → 2022-10-31 | Outpatient (CLI) | payer MEDICARE, OTHER, SELFPAY ==
--- NOTE | 2022-10-31 10:46 | BD_ITS ---
STUDY: DUAL ENERGY X-RAY ABSORPTIOMETRY / DXA REASON FOR EXAM: Female, 82 years old. Z780 TECHNIQUE: Bone Mineral Density (BMD) measurements of lumbar spine and bilateral hips were obtained. COMPARISON: Comparison is made with prior study November 10, 2013. FINDINGS: Lumbar Spine (L1-L4): g/cm2 (1.166) / T-score (1.4) / Z-score (4.1) Findings are suggestive of normal bone density with a low fracture risk. Left Femur Total: g/cm2 (0.947) / T-score (0.0) / Z-score (2.3) Left Femoral Neck: g/cm2 (0.602) / T-score (-2.2) / Z-score (0.2) Right Femur Total: g/cm2 (1.014) / T-score (0.6) / Z-score (2.9) Right Femoral Neck: g/cm2 (0.628) / T-score (-2.0) / Z-score (0.5) The T-Scores on the most recent prior examination were: Lumbar Spine (L1-L4): There has been worsening of bone density since the previous examination. Left Femur Total: which represents a worsening of 16.1%. Right Femur Total: which represents a worsening of 12%. BD/Dexa Bone Density Study IMPRESSION: The patient is considered osteopenic as outlined below according to World [place] Organization (WHO) criteria with a high fracture risk. There has been worsening of bone density since the previous examination. Reference Information: The T-score is the number of standard deviations above or below the standard which is normal for young adults at their peak bone mineral density. The World Health Organization (WHO) interprets the T-scores as follows: Above -1 Normal bone density Between -1 and -2.5 Osteopenia Equal to / or below -2.5 Osteoporosis As a practical clinical guideline, osteopenia may be graded as follows: Mild -1 through -1.5 Moderate -1.6 through -2.0 Severe -2.1 through -2.4 The Z-score is the number of standard deviations above or below age-matched controls. A Z-score of less than -1.5 would be considered abnormal. References: 1. NIH Osteoporosis and Related Bone Diseases www osteo.org 2. International Society for Clinical Densitometry www iscd.org 3. National Osteoporosis Foundation www nof.org Electronically Signed: Huey Gomez MD at 10:50 EDT ,
== END | disposition home or self-care (01) ==
LOC: OPBD 10:35
PROVIDERS: PCP Family Medicine Geriatric Medicine; Referring Provider Family Medicine Geriatric Medicine; Visit Provider Family Medicine Geriatric Medicine
DX: Z78.0 Asymptomatic menopausal state (principal)
CPT/HCPCS: 77080

== ENCOUNTER → 2022-11-16 | Outpatient (CLI) | payer MEDICARE, OTHER, SELFPAY ==
--- NOTE | 2022-11-16 14:00 | CT_ITS ---
EXAM: CT LEFT LOWER EXTREMITY WITHOUT INTRAVENOUS CONTRAST CLINICAL INDICATION: UNILATERAL PRIMARY OSTEOARTHRITIS TECHNIQUE: Helically acquired images were obtained of the left lower extremity without intravenous contrast. 2-D reformats were performed by the technologist. CTDIvol = ( 18.74 ) mGy, DLP = ( 3029.08 ) mGycm This CT exam was performed using one or more of the following dose reduction techniques: automated exposure control, adjustment of the mA and/or kV according to patient size, and/or use of iterative reconstruction technique. COMPARISON: No relevant prior studies available. FINDINGS: BONES/JOINTS: Tricompartmental osteoarthrosis is worse at the lateral femorotibial compartment. No acute or healing fracture or malalignment. No suspicious lytic or sclerotic lesions of bone. Polyarticular degenerative changes involving the footprint/ankle. Moderate suprapatellar joint effusion. At least moderate left hip osteoarthrosis. Moderate degenerative changes of the pubic symphysis. SOFT TISSUES: Diffuse subcutaneous edema. No soft tissue gas. No soft tissue masses or fluid collections. Intramuscular lipomatous process is identified involving the vastus lateralis with no suspicious features. There is no adjacent bony erosion or periostitis for example. Deluna''s cyst measures 3.6 x 1.9 cm. No radiopaque foreign body. CT/Extremity Lower without Contra IMPRESSION: Preoperative planning study showing tricompartmental osteoarthrosis which is worse at the lateral femorotibial compartment. No expected findings. Electronically Signed: Hermelindo Newberry MD at 15:33 EDT ,
== END | disposition home or self-care (01) ==
LOC: CT 13:34
PROVIDERS: PCP Family Medicine Geriatric Medicine; Referring Provider Orthopaedic Surgery; Visit Provider Orthopaedic Surgery
DX: M17.12 Unilateral primary osteoarthritis, left knee (principal)
CPT/HCPCS: 73700

== ENCOUNTER → 2022-11-21 | Outpatient (CLI) | payer MEDICARE, OTHER, SELFPAY ==
--- NOTE | 2022-11-21 16:45 | RAD_ITS ---
STUDY: X-RAY CHEST REASON FOR EXAM: Female, 82 years old. CONGESTION TECHNIQUE: PA and lateral COMPARISON: May 11, 2022 FINDINGS: Mild nonspecific prominence of the interstitial markings in the right lower lobe.. Elevated left hemidiaphragm with associated small pleural effusion and mild left basilar atelectasis or infiltrate Normal size heart. Normal mediastinum and binh. Normal visualized pulmonary arteries. Normal visualized aortic arch and descending thoracic aorta. Normal visualized thoracic spine. Normal visualized ribs, clavicles, and shoulders. There is no demonstrated abnormality of the visualized soft tissue structures of the upper abdomen. RAD/Chest PA and Lateral IMPRESSION: Persistent small left pleural effusion and mild left basilar atelectasis or infiltrate. Electronically Signed: Delon Stratton MD at 17:42 EDT ,
== END | disposition home or self-care (01) ==
LOC: RAD 16:33
PROVIDERS: PCP Family Medicine Geriatric Medicine; Referring Provider Family Medicine Geriatric Medicine; Visit Provider Family Medicine Geriatric Medicine
DX: J98.8 Other specified respiratory disorders (principal)
CPT/HCPCS: 71046

== ENCOUNTER → 2022-11-26 | Outpatient (CLI) | payer MEDICARE, OTHER, SELFPAY | END | disposition home or self-care (01) | LOC: PSN 12:08 | PROVIDERS: PCP Family Medicine Geriatric Medicine; Referring Provider Family Medicine Geriatric Medicine; Visit Provider Family Medicine Geriatric Medicine | DX: R68.83 Chills (without fever) (principal) | CPT/HCPCS: 87635; 87804; 87807; C9803 ==

== ENCOUNTER → 2022-11-30 | Outpatient (CLI) | payer MEDICARE, OTHER, SELFPAY ==
[2022-11-30 15:39] LABS: Magnesium 2.2 mg/dL (1.6-2.6)
[2022-11-30 16:57] LABS: Albumin, Serum 2.9 g/dL (3.2-5.0)
== END | disposition home or self-care (01) ==
LOC: PAT 01-04 08:21
PROVIDERS: Anesthesiology; PCP Family Medicine Geriatric Medicine; Referring Provider Orthopaedic Surgery; Visit Provider Orthopaedic Surgery
DX: Z01.818 Encounter for other preprocedural examination (principal)
CPT/HCPCS: 36415; 82040; 83735; 87081

== ENCOUNTER → 2022-12-12 | Outpatient (CLI) | payer MEDICARE, OTHER, SELFPAY ==
[2022-12-12 13:01] LABS: Albumin, Serum 2.6 g/dL (3.2-5.0); BUN 22 mg/dL (7-18); BUN/Creat Ratio 17.7 RATIO (10-20); Calcium,Total 8.8 mg/dL (8.5-10.1); Chloride 106 mmol/L (98-107); Creatinine, Serum 1.24 mg/dL (0.55-1.02); EST Glomerular Filtration Rate 44 mL/min (>60); Est Glom Filt Rate - Afr Amer 53 mL/min (>60); Glucose 195 mg/dL (74-106); Phosphorus 3.2 mg/dL (2.5-4.9); Potassium 4.4 mmol/L (3.5-5.1); Sodium Level 139 mmol/L (136-145)
[2022-12-12 13:19] LABS: Protein, Urine (Random) 397.6 mg/dL (<11.9); Protein:Creat Ratio 2234 mg/g CRE (0-200)
== END | disposition home or self-care (01) ==
PROVIDERS: PCP Family Medicine Geriatric Medicine; Visit Provider Internal Medicine Nephrology
DX: N17.8 Other acute kidney failure (principal); E11.22 Type 2 diabetes mellitus with diabetic chronic kidney disease; E88.09 Other disorders of plasma-protein metabolism, not elsewhere classified
CPT/HCPCS: 36415; 80069; 82570; 84156

== ENCOUNTER 2022-12-26 09:24 | Outpatient (RCR) | payer MEDICARE, OTHER, SELFPAY | END 2023-01-15 23:59 | LOC: NS 09:24 | PROVIDERS: PCP Family Medicine Geriatric Medicine; Referring Provider Family Medicine Geriatric Medicine; Visit Provider Family Medicine Geriatric Medicine | DX: Z71.3 Dietary counseling and surveillance (principal); E88.09 Other disorders of plasma-protein metabolism, not elsewhere classified; N18.32 Chronic kidney disease, stage 3b; E11.22 Type 2 diabetes mellitus with diabetic chronic kidney disease | CPT/HCPCS: 97802 ==

== ENCOUNTER → 2023-01-14 | Outpatient (CLI) | payer MEDICARE, OTHER, SELFPAY ==
[2023-01-14 17:39] LABS: Hematocrit 41.7 % (37-47); Hemoglobin 13.2 g/dL (12.0-15.0); Mean Corp Hgb Conc 31.7 g/dL (32-36); Mean Corpuscular Hgb 29.7 pg (27.0-32.0); Mean Corpuscular Volume 93.7 fL (81-99); Mean Platelet Vol. 10.9 fl (6.2-12.0); Platelet Count 312 K/mm3 (150-450); RBC Distribution Width CV 14.2 % (11.6-14.6); RBC Distribution Width SD 48.8 fl (35.1-43.9); Red Blood Count 4.45 M/mm3 (4.2-5.4); White Blood Count 12.2 K/mm3 (4.4-11.0)
[2023-01-14 17:51] LABS: ALB/GLOB Ratio 0.8 RATIO (0.9-2.4); AST(SGOT) 12 U/L (15-37); Alanine Aminotransfer ALT/SGPT 18 U/L (13-56); Albumin, Serum 2.9 g/dL (3.2-5.0); Alkaline Phosphatase 92 U/L (45-117); Anion Gap 4 (5-15); BUN 29 mg/dL (7-18); BUN/Creat Ratio 21.8 RATIO (10-20); Calcium,Total 8.7 mg/dL (8.5-10.1); Chloride 105 mmol/L (98-107); Creatinine, Serum 1.33 mg/dL (0.55-1.02); EST Glomerular Filtration Rate 40 mL/min (>60); Est Glom Filt Rate - Afr Amer 49 mL/min (>60); Globulin 3.7 g/dL (2.2-4.2); Glucose 119 mg/dL (74-106); Potassium 4.1 mmol/L (3.5-5.1); Protein, Total 6.6 g/dL (6.4-8.2); Sodium Level 141 mmol/L (136-145)
== END | disposition home or self-care (01) ==
PROVIDERS: PCP Family Medicine Geriatric Medicine; Visit Provider Family Medicine Geriatric Medicine
DX: R06.02 Shortness of breath (principal); N18.31 Chronic kidney disease, stage 3a
CPT/HCPCS: 36415; 80053; 83880; 85027

== ENCOUNTER → 2023-01-15 | Outpatient (CLI) | payer MEDICARE, OTHER, SELFPAY ==
--- NOTE | 2023-01-15 12:45 | RAD_ITS ---
STUDY: X-RAY CHEST REASON FOR EXAM: Female, 83 years old. SOB TECHNIQUE: PA and lateral views of the chest. COMPARISON: 11/21/2022 FINDINGS: The lungs are clear and expanded. Large left pleural effusion, increased when compared with the prior study. There is moderate cardiac enlargement. Normal mediastinum and binh. Normal visualized pulmonary arteries. Normal visualized aortic arch and descending thoracic aorta. Normal visualized thoracic spine. Normal visualized ribs, clavicles, and shoulders. There is no demonstrated abnormality of the visualized soft tissue structures of the upper abdomen. RAD/Chest PA and Lateral IMPRESSION: Enlarging left-sided pleural effusion which is large. Cardiomegaly. Electronically Signed: Miguel Patterson MD at 20:45 EDT ,
== END | disposition home or self-care (01) ==
LOC: RAD 12:33
PROVIDERS: PCP Family Medicine Geriatric Medicine; Referring Provider Family Medicine Geriatric Medicine; Visit Provider Family Medicine Geriatric Medicine
DX: R06.02 Shortness of breath (principal)
CPT/HCPCS: 71046

== ENCOUNTER → 2023-01-25 | Outpatient (CLI) | payer MEDICARE, OTHER, SELFPAY ==
[2023-01-25 11:27] LABS: Cytology, Body Fluid / CSF SEE PATHOLOGY REPORT
[2023-01-25 12:23] LABS: Body Fluid Mononuclear WBC # 1.679 10^3/uL; Body Fluid Polynuclear WBC # 0.298 10^3/uL; Body Fluid Total Cells Counted 2.037 10^3/ul; White Blood Count/Body Fluid 1.977 10^3/uL
[2023-01-25 13:05] LABS: Auto B Fluid Analyzer BKGD Ct COUNTS W/IN LIMITS (W/IN LIMITS); Color/Body Fluid YELLOW; Source- Body Fluid THORACENTESIS
[2023-01-25 13:06] LABS: Appearance/Body Fluid CLEAR; Red Cell Count/Body Fluid 880 /mm3
[2023-01-25 13:13] LABS: Lymphocytes 72 %; Monocytes 3 %; Neutrophil (Segs) 25 %
[2023-01-25 13:15] LABS: Body Fluid QC Type(s) BF2Q,BF3Q
[2023-01-25 14:21] LABS: Glucose, Body Fluid 166 mg/dL (40-70); LDH,Body Fluid 68 Units/L (Not Establ.); Protein, Body Fluid 3.1 g/dL (Not Establ.)
[2023-01-28 17:07] LABS: pH, Body Fluid 11254 7.3 (Not Estab.)
[2023-01-30 10:00] LABS: Pathologist Comment/Body Fluid Reviewed
== END | disposition home or self-care (01) ==
LOC: US 11:20
PROVIDERS: PCP Family Medicine Geriatric Medicine; Visit Provider Family Medicine Geriatric Medicine
DX: J90 Pleural effusion, not elsewhere classified (principal)
CPT/HCPCS: 82945; 83615; 83986; 84157; 87070; 87075; 87205; 89050

== ENCOUNTER → 2023-01-25 | Outpatient (CLI) | payer MEDICARE, OTHER, SELFPAY ==
--- NOTE | 2023-01-25 | IMM_PTH ---
PATIENT: TONJA SÁNCHEZ LOC: CT U#:[id number] AGE/SX: 83/F ROOM: RE01/25/[address]: Dr. Alexy Douglas MD : 1940 BED: DIS: 01/25/2023 SPEC #: [id number] RECD: 01/29/23 07:35 STATUS: RICHARD REQ #: [id number] HAMLET: 01/25/23 00:[address]: Alexy Douglas Chi DEPT: IMMUNOHISTOCHEMISTRY RECD BY: Amira Gutierrez Tissues: THORACIC FLUID Procedures: BCL-2 (add) CA-125 (add) Sanchez Ret (add) CD20 (add) CD3 (add) CD45 (add) CD5 (add) CD79A (add) CEA (add) CK20 (add) CK5-6 (add) CK7 (add) CK8 (add) EMILY (add) HER2 BELEN (add) KI-67 (add) P53 (add) CA (add) Vimentin (add) Pankeratin (add) P40 (add) CDX2 (add) CD68 (ADD) ER (initial) S-100 (add) PHYSICIAN & INSTITUTION [place] [id number] SPECIMEN INFORMATION: Tissue Source: Thoracentesis fluid Clinical Info: Pleural effusion Specimen Number: [id number] CPT code: 23581, 52931 x24 METHODOLOGY: Deparaffinized sections of prefer/formalin-fixed tissue or PAP/DQ stained slides are incubated with monoclonal/polyclonal antibodies/oligonucleotide probes. Localization is made via biotin free immunoperoxidase method. Appropriate controls are performed and reacted as expected. Results on target cell population are indicated in the following table: RESULTS: ANTIBODY / CLONE RESULT ER (6F11) negative CA (1E2) negative Her-2neu (CB11) negative AE1-3 (AE1/AE3/PCK26) positive CK7 (OV-TL12/30) positive CK8 (25zmyyD23) positive CK20 (KS20.8) negative CDX2 ([id number]) negative CD45 (RP2/18) positive Vimentin (V9) positive CD68 (KP-1) positive S-100 (4C4.9) negative CALRET (polyclonal) positive CK5-6 (D5 & 1684) positive P40 (BC28) negative EMILY (E29) positive CEA (11-7/TF-3HB-1) positive, focal CA125 (OC125) negative P53 (DO-7) positive, rare Ki-67 (30-9) negative, low CD3 (PS1) positive CD5 (SP10) positive CD20 (L26) positive CD79a (11E3) positive BCL-2 (bcl-2/100/D5) positive These tests were developed and their performance characteristics determined by [facility]. They may not have been cleared or approved by the U.S. Food and Drug Administration. The FDA has determined that such clearance or approval is not necessary. The above immunohistochemical/dualISH markers are ordered and reviewed by the Pathologist. INTERPRETATION: Thoracentesis fluid (cell block): Polytypic lymphocytes. Reactive mesothelial cells. Macrophages. AM:lonnie 01/31/2023
--- NOTE | 2023-01-25 10:06 | CT_ITS ---
INDICATION: RECURRENT PLUERAL EFFUSION EXAMINATION: CT CHEST WITHOUT CONTRAST - CT Chest W/O Contrast Injection TECHNIQUE: Helically acquired images were obtained of the chest. A radiation dose optimization technique was used for this scan. IV Contrast dosage and agent: None. COMPARISON: Chest x-ray earlier today FINDINGS: LUNGS, PLEURA AND LARGE AIRWAYS: 2 cm groundglass nodule in the right lower lobe of the lungs. Some lingular and left lower lobe atelectasis. Tiny bilateral pleural effusions. No pneumothorax. THYROID: No thyroid lesions. HEART AND PERICARDIUM: Cardiomegaly. No pericardial effusion. CORONARY ARTERIES: Coronary artery calcification is seen. VESSELS: Thoracic aorta is not dilated. MEDIASTINUM AND JHON: No mediastinal or hilar adenopathy. Esophagus is unremarkable. No hiatal hernia. UPPER ABDOMEN: No acute pathology. BONES: No suspicious lytic or blastic abnormality. CT/Chest without Contrast IMPRESSION: 1. 2 cm right lower lobe groundglass nodule. 2. Some lingular and left lower lobe atelectasis. 3. Tiny bilateral pleural effusions. 4. Cardiomegaly. Electronically Signed: Miguel Patterson MD at 23:42 EST ,
[2023-01-25] MEDS: Lidocaine 2% (20 ml mdv) 20 ML Vial INFILT (10:55)
--- NOTE | 2023-01-25 11:10 | FLU_PTH ---
PATIENT: TONJA SÁNCHEZ LOC: CT U#:[id number] AGE/SX: 83/F ROOM: RE01/25/[address]: Dr. Alexy Douglas MD : 1940 BED: DIS: 01/25/2023 SPEC #: [id number] RECD: 01/25/23 11:21 STATUS: RICHARD KAMRON #: [id number] HAMLET: 01/25/23 11:[address]: Alexy Douglas Chi DEPT: CYTOLOGY RECD BY: Ana Williamson Tissues: THORACIC FLUID Procedures: Special Stain Group II Surgery Specimen Level IV Cytospin Fluid HEADER OPERATION: Thoracentesis, left chest PRE-OP DIAGNOSIS: Pleural Effusion TISSUE SUBMITTED: Thoracentesis fluid for cytology DIAGNOSIS CYTOLOGY Thoracentesis fluid for cytology (cytospin and cell block): Polytypic lymphocytes present. Reactive mesothelial cells and macrophages are present. Note: There is no definite evidence of malignancy. AM:lonnie 01/31/2023 CYTOLOGY STUDY Slides are reviewed. CYTOLOGY GROSS Received is 80 ml of yellow cloudy fluid labeled with the patient's name and and designated per the requisition as thoracentesis. Submitted for cytology preparation including cell block. / lonnie 01/25/2023 TC: CPT: 15696
--- NOTE | 2023-01-25 11:11 | RAD_ITS ---
STUDY: X-RAY CHEST REASON FOR EXAM: Female, 83 years old. Post thora TECHNIQUE: AP inspiration and expiration views. COMPARISON: Comparison is made with prior study January 15, 2023. FINDINGS: The patient is status post left thoracentesis. There is no evidence of pneumothorax. RAD/Chest Insp/Exp 2 View IMPRESSION: No evidence of pneumothorax following the left thoracentesis. Electronically Signed: Huey Gomez MD at 12:14 EST ,
--- NOTE | 2023-01-25 11:20 | PRO.PCM_ITS ---
Procedure Report Date of Procedure: 01/25/23 Assessment & Plan Assessment/Plan (1) Pleural effusion, left: PLAN: PROCEDURE: Ultrasound Guided Thoracentesis ORDERING PROVIDER: Dr. Douglas INDICATION: Female, 83 years old. Left pleural effusion. PROVIDER: ANAMIKA Bravo PROCEDURE: The risks, benefits, and alternatives to the procedure were explained to the patient. The specific risks of bleeding, infection, and pneumothorax requiring chest tube insertion were discussed and accepted. Written informed consent was obtained. The patient was placed in the sitting, upright position. Ultrasonographic evaluation of the bilateral lower pleural spaces was carried out. An adequate pocket was identified in the left lower pleural space.The overlying skin was prepped and draped in sterile fashion. 2% lidocaine was administered subcutaneously for local anesthesia. Under ultrasound guidance, a 5-Armenian thoracentesis needle/catheter system was advanced into the left posterior lower pleural fluid collection. 1550 ml of clear yellow colored fluid was drained. 100 mL of this fluid was sent to the laboratory as a sample for analysis, as per requesting physician. The catheter was removed, and a sterile dressing was applied. The patient tolerated the procedure well. A chest x-ray was ordered. IMPRESSION: Successful ultrasound-guided thoracentesis of left pleural effusion. Procedures Radiology Radiology US Procedures: 39403 Thoracentesis
[2023-01-25 11:36] VITALS: BP 146/69; BP 148/78; BP 153/81; PULSE 79; PULSE 84; PULSE 95; RESP 18; TEMP 36.2; O2SAT 93; O2SAT 96; O2SAT 97
== END | disposition home or self-care (01) ==
PROVIDERS: PCP Family Medicine Geriatric Medicine; Referring Provider Family Medicine Geriatric Medicine; Visit Provider Family Medicine Geriatric Medicine
DX: J90 Pleural effusion, not elsewhere classified (principal)
CPT/HCPCS: 32555; 71046; 71250; 88108; 88305; 88313; 88341; 88342

== ENCOUNTER → 2023-01-30 | Outpatient (CLI) | payer MEDICARE, OTHER, SELFPAY ==
--- NOTE | 2023-01-30 13:00 | RAD_ITS ---
STUDY: X-RAY CHEST REASON FOR EXAM: Female, 83 years old. 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 COMPARISON: Comparison is made with prior study January 25, 2023. FINDINGS: Elevation of the left hemidiaphragm. Increasing left pleural effusion. Normal size heart. Normal mediastinum and binh. Normal visualized pulmonary arteries. There is atherosclerotic calcification of the aortic arch with tortuosity. There are degenerative changes of the visualized thoracic spine. Normal visualized ribs, clavicles, and shoulders. There is no demonstrated abnormality of the visualized soft tissue structures of the upper abdomen. RAD/Chest PA and Lateral IMPRESSION: Increasing left pleural effusion. Electronically Signed: Huey Gomez MD at 13:56 EST ,
[2023-01-30 14:35] LABS: Absolute Lymphocyte Count 1.45 X10^3/uL (0.83-4.51); Basophil# 0.04 X10^3/uL; Basophil% 0.3 % (0-1); Eosinophil# 0.26 X10^3/uL; Lymphocyte # 1.45 X10^3/ul (0.83-4.51); Lymphocyte % 11.4 % (19-41); Mean Corp Hgb Conc 30.2 g/dL (32-36); Mean Platelet Vol. 11.5 fl (6.2-12.0); Monocyte# 0.87 X10^3/uL; Monocyte% 6.8 % (0-10); NRBC Flagged by Analyzer 0 % (0-5); Neutrophil # 10.01 X10^3/uL (2.7-7.7); Neutrophil % 78.8 % (47-70); Platelet Count 260 K/mm3 (150-450); RBC Distribution Width CV 14.6 % (11.6-14.6); RBC Distribution Width SD 50.9 fl (35.1-43.9); Red Blood Count 4.48 M/mm3 (4.2-5.4); White Blood Count 12.7 K/mm3 (4.4-11.0)
[2023-01-30 14:46] LABS: Anion Gap 2 (5-15); BUN 28 mg/dL (7-18); BUN/Creat Ratio 17.8 RATIO (10-20); Calcium,Total 8.9 mg/dL (8.5-10.1); Chloride 106 mmol/L (98-107); Creatinine, Serum 1.57 mg/dL (0.55-1.02); EST Glomerular Filtration Rate 33 mL/min (>60); Est Glom Filt Rate - Afr Amer 40 mL/min (>60); Glucose 138 mg/dL (74-106); Potassium 4.2 mmol/L (3.5-5.1); Sodium Level 141 mmol/L (136-145)
== END | disposition home or self-care (01) ==
PROVIDERS: PCP Family Medicine Geriatric Medicine; Referring Provider Family Medicine Geriatric Medicine; Visit Provider Family Medicine Geriatric Medicine
DX: R91.1 Solitary pulmonary nodule (principal); I10 Essential (primary) hypertension
CPT/HCPCS: 36415; 71046; 80048; 85025

== ENCOUNTER → 2023-02-12 | Outpatient (CLI) | payer MEDICARE, OTHER, SELFPAY ==
--- NOTE | 2023-02-12 | IMM_PTH ---
PATIENT: TONJA SÁNCHEZ LOC: [facility]#:[id number] AGE/SX: 83/F ROOM: RE02/12/[address]: Dr. Alexy Douglas MD : 1940 BED: DIS: 02/12/2023 SPEC #: [id number] RECD: 02/15/23 11:06 STATUS: RICHARD REQ #: [id number] HAMLET: 02/12/23 00:[address]: Alexy Douglas Chi DEPT: IMMUNOHISTOCHEMISTRY RECD BY: Amira Gutierrez Tissues: THORACIC FLUID Procedures: Sanchez Ret (add) CK20 (add) CK5-6 (add) CK7 (add) P53 (add) Pankeratin (initial) P40 (add) PHYSICIAN & [place] [id number] SPECIMEN INFORMATION: Tissue Source: Thoracentesis fluid Clinical Info: Left pleural effusion Specimen Number: [id number] CPT code: 36615, 32206 x6 METHODOLOGY: Deparaffinized sections of prefer/formalin-fixed tissue or PAP/DQ stained slides are incubated with monoclonal/polyclonal antibodies/oligonucleotide probes. Localization is made via biotin free immunoperoxidase method. Appropriate controls are performed and reacted as expected. Results on target cell population are indicated in the following table: RESULTS: ANTIBODY / CLONE RESULT AE1-3 (AE1/AE3/PCK26) positive CK7 (OV-TL12/30) positive CK20 (KS20.8) negative CALRET (polyclonal) positive CK5-6 (D5 & 1684) positive P40 (BC28) negative P53 (DO-7) negative, null pattern These tests were developed and their performance characteristics determined by [facility]. They may not have been cleared or approved by the U.S. Food and Drug Administration. The FDA has determined that such clearance or approval is not necessary. The above immunohistochemical/dualISH markers are ordered and reviewed by the Pathologist. INTERPRETATION: Thoracentesis fluid (cell block): No evidence of malignancy. AM:lonnie 02/18/2023
--- NOTE | 2023-02-12 | FLU_PTH ---
PATIENT: TONJA SÁNCHEZ LOC: [facility]#:[id number] AGE/SX: 83/F ROOM: RE02/12/[address]: Dr. Alexy Douglas MD : 1940 BED: DIS: 02/12/2023 SPEC #: [id number] RECD: 02/12/23 15:06 STATUS: RICHARD LUNDY #: [id number] HAMLET: 02/12/23 00:[address]: Alexy Douglas Chi DEPT: CYTOLOGY RECD BY: Lorna Young Tissues: THORACIC FLUID Procedures: Special Stain Group II Mucicarmine Stain (control) Surgery Specimen Level IV Cytospin Fluid HEADER OPERATION: Ultrasound Guided Thoracentesis - Left PRE-OP DIAGNOSIS: Pleural Effusion TISSUE SUBMITTED: Pleural fluid DIAGNOSIS CYTOLOGY Pleural fluid for cytology (cytospin and cell block): Negative for malignant cells. See comment. AM:lonnie 02/14/2023 COMMENT Immunohistochemistry ([id number]) supports the above diagnosis. Mucin stain with matched control was used in the evaluation of this case. CYTOLOGY STUDY Slides are reviewed. CYTOLOGY GROSS Received is 100 ml of cloudy yellow fluid labeled with the patient's name and and designated per the requisition as thoracentesis. Submitted for cytology preparation including cell block. / lonnie 02/13/2023 TC:5 CPT: 26393, 67955, 93211
--- NOTE | 2023-02-12 14:22 | US_ITS ---
PROCEDURE: ULTRASOUND GUIDED THORACENTESIS. DATE: February 12, 2023. INDICATION: Female, 83 years old. Left pleural effusion. PHYSICIAN: Huey Gomez M.D. PROCEDURE: The risks, benefits, and alternatives to the procedure were explained to the patient. The specific risks of bleeding, infection, and pneumothorax requiring chest tube insertion were discussed and accepted. Written informed consent was obtained. Ultrasonographic evaluation of the left lower pleural space was carried out. An adequate pocket was identified. The patient was placed in the sitting, upright position. The overlying skin was prepped and draped in sterile fashion. 1% lidocaine was administered subcutaneously for local anesthesia. Under ultrasound guidance, a 5 [place]orese thoracentesis needle/catheter system was advanced into the left posterior lower pleural fluid collection. Approximately 1660 mL of leigh-colored fluid was drained. The catheter was removed, and a sterile dressing was applied. A 100 mL specimen was collected and sent to the laboratory for analysis, as requested by the referring clinician. The patient tolerated the procedure well. A chest x-ray was ordered. US/Thoracentesis W US IMPRESSION: Ultrasound-guided left thoracentesis. Electronically Signed: Huey Gomez MD at 15:16 EST ,
[2023-02-12] MEDS: Lidocaine 2% (20 ml mdv) 20 ML Vial INFILT (14:43)
--- NOTE | 2023-02-12 14:50 | RAD_ITS ---
STUDY: X-RAY CHEST REASON FOR EXAM: Female, 83 years old. Postthoracentesis. Follow-up. TECHNIQUE: Single frontal view of the chest on 2 images. COMPARISON: January 30, 2023. FINDINGS: Stable cardiomegaly, aortic tortuosity and hyperinflation of the right lung. Marked decrease in left pleural effusion with no complications after thoracentesis. No abnormality of the visualized soft tissue structures of the upper abdomen. RAD/Chest Insp/Exp 2 View IMPRESSION: Marked decrease in left pleural effusion without complication. No acute abnormality. Electronically Signed: Woody Mast MD at 15:04 EST ,
[2023-02-12 15:00] VITALS: BP 104/50; BP 109/55; BP 109/58; BP 96/41; PULSE 102; PULSE 112; PULSE 63; PULSE 96; RESP 24; RESP 26; RESP 28; O2SAT 92; O2SAT 93; O2SAT 96
== END | disposition home or self-care (01) ==
LOC: US 14:16
PROVIDERS: PCP Family Medicine Geriatric Medicine; Referring Provider Family Medicine Geriatric Medicine; Visit Provider Family Medicine Geriatric Medicine
DX: J90 Pleural effusion, not elsewhere classified (principal)
CPT/HCPCS: 32555; 71046; 88108; 88305; 88313; 88341; 88342

== ENCOUNTER 2023-02-14 15:52 | Inpatient (IN) | payer MEDICARE, OTHER, SELFPAY ==
[2023-02-14] VITALS (7 sets, daily range): BP systolic 125–152; BP diastolic 85–100; PULSE 96–127; RESP 20–36; TEMP 36.2–37; O2SAT 92–96; BMI 39.0; BMI 38.2
--- NOTE | 2023-02-14 16:14 | EKG12_ITS ---
Test Reason : Blood Pressure : / mmHG Vent. Rate : 121 BPM Atrial Rate : 000 BPM P-R Int : 000 ms QRS Dur : 138 ms QT Int : 352 ms P-R-T Axes : 000 073 -08 degrees QTc Int : 499 ms Atrial fibrillation with rapid ventricular response Right bundle branch block Abnormal ECG Confirmed by KATIE SELF, ISAÍAS ([id number]), business editor CHARITY NETTLES ([id number]) on 02/15/2023 9:34:38 AM Referred By: GAURAV Confirmed By:ISAÍAS WILSON MD
--- NOTE | 2023-02-14 16:15 | EDS_ITS ---
HPI History of Present Illness Chief Complaint: Shortness of Breath Narrative Narrative: 83-year-old female past medical history of COPD, wears oxygen as needed, presents at the direction of [facility] because of increasing shortness of breath that she had over the last few days. She relates history that she has a left-sided pleural effusion. She has had thoracentesis twice in the last week and a half. The first time they took off a liter and a half, and 2 days ago, she had reaccumulation and a thoracentesis where they drained 2 L off of her left lung. She has had increasing shortness of breath, and felt feverish and sweaty. She had increased difficulty breathing. She states that she has COPD, and sees a irrigation flume layer, Dr. Greenwood, but does not have an appointment with him for the next few weeks. She is also on a water pill. She presents because of the shortness of breath and increasing difficulty breathing [facility] Medical History Actinic keratosis Atrial fibrillation Back pain BMI 39.0-39.9,adult Breast cancer Cancer Cardiology follow-up encounter Chronic anticoagulation Chronic diastolic (congestive) heart failure Chronic kidney disease, stage 3b CKD (chronic kidney disease) stage 3, GFR 30-59 ml/min COPD (chronic obstructive pulmonary disease) Diabetes mellitus Diastolic dysfunction Dietary restriction Disc degeneration, lumbar Erosion of bladder suspension mesh Essential (primary) hypertension Fatigue Former smoker High cholesterol History of atrial fibrillation History of CHF (congestive heart failure) History of echocardiogram History of edema History of pain when walking History of renal disease History of steroid therapy History of stress test Hyperlipidemia Hypersomnia Hypertension Hypertension Hypothyroidism Hypoxia Injury of back Insulin dependent diabetes mellitus Longstanding persistent atrial fibrillation Low iron Non-rheumatic tricuspid valve insufficiency Obesity Overactive bladder Restless legs Right hip pain Secondary pulmonary arterial hypertension Shortness of breath on exertion Skin cancer Skin cancer, basal cell Skin lesion Stage 2 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 SHAKIRA (stress urinary incontinence, female) Tobacco dependence in remission UTI (urinary tract infection) Wears dentures Wears glasses Home Medications cholecalciferol (vitamin D3) 325 mcg (13,000 unit) capsule 325 mcg PO DAILY supplement 06/14/21 [History Last Taken 10/08/21] potassium chloride 20 mEq tablet,extended release 20 meq PO DAILY supplement 06/14/21 [History Last Taken 10/08/21] apixaban 2.5 mg tablet (Eliquis) 2.5 mg PO DAILY blood thinner 10/09/21 [History Last Taken 10/08/21] glimepiride 1 mg tablet 1 mg PO DAILY blood sugar 10/09/21 [History Last Taken 10/08/21] acetaminophen 500 mg tablet 1,000 mg (2 x 500 mg) PO Q6H PRN PRN Pain Score 1-10 #0 tabs 10/24/21 [Rx Last Taken Unknown] metoprolol tartrate 100 mg tablet 100 mg PO DAILY 10/30/21 [History Last Taken Unknown] insulin degludec 100 unit/mL (3 mL) subcutaneous pen 40 unit subcut QHS blood sugar 01/29/22 [History Last Taken Unknown] levothyroxine 200 mcg tablet 200 mcg PO DAILY thyroid 01/29/22 [History Last Taken Unknown] ferrous sulfate 325 mg (65 mg iron) tablet (Feosol) 325 mg PO DAILY 04/04/22 [History Last Taken Unknown] sacubitril 24 mg-valsartan 26 mg tablet (Entresto) 1 tab PO BID #1 TAB 04/23/22 [Rx Last Taken Unknown] furosemide 40 mg tablet 40 mg PO DAILY #90 tabs 08/28/22 [Rx Last Taken Unknown] diltiazem HCl 240 mg capsule,extended release 24 hr 240 mg PO BID heart #180 caps 09/27/22 [Rx Last Taken Unknown] rosuvastatin 20 mg tablet 20 mg PO QHS cholesterol #30 tabs 10/08/22 [Rx Last Taken Unknown] albuterol sulfate 90 mcg/actuation aerosol inhaler 1 inh inhalation Q4H PRN COPD 11/14/22 [History Last Taken Unknown] mirabegron 50 mg tablet,extended release 24 hr (Myrbetriq) 50 mg PO QHS 11/14/22 [History Last Taken Unknown] bumetanide 2 mg tablet 2 mg PO DAILY 02/14/23 [History Last Taken Unknown] levothyroxine 50 mcg tablet 50 mcg PO DAILY 02/14/23 [History Last Taken Unknown] meloxicam 15 mg tablet 15 mg PO DAILY 02/14/23 [History Last Taken Unknown] Allergy/AdvReac Type Severity Reaction Status Date / Time Sulfa (Sulfonamide Allergy PEELING Verified 02/14/23 15:52 Antibiotics) RASH Family History Mother Colon cancer Cancer skin, bladder Daughter Cancer Thyroid Sister CAD (coronary artery disease) Surgical History History of cardioversion (03/20/19) History of excision of lesion History of hysterectomy History of left heart catheterization (05/31/14) History of partial mastectomy Hx of colonoscopy Hx of left cataract extraction Hx of local excision of skin lesion Hx of right cataract extraction Social History (Updated 02/14/23 @ 16:43 by Doris Fernandez) household members: none housing: house current occupational status: retired Smoking Status: Former smoker how long ago did patient quit smokin, 2p/day second hand exposure: Yes alcohol intake: current alcohol intake frequency: holidays/special occasions only substance use type: does not use ROS ROS ED ROS Narrative Constitutional: No fever, no chills. Positive diaphoresis/sweating. HEENT: No sore throat. No neck pain. No loss of vision. No rhinorrhea. Cardiovascular: No chest pain. No palpitations. No pedal edema. Respiratory: Occasional cough, positive shortness of breath. Abdominal: No abdominal pain. No nausea. No vomiting. Genitourinary: No dysuria. No hematuria. Musculoskeletal: No myalgias. No arthralgias. Neurologic: No headaches. No dizziness. No lightheadedness. Skin: No rash. No change in color. Psychiatric: No depression. No anxiety. EXAM Physical Exam Narrative Exam Narrative: Afebrile. Vital signs noted. HEENT: Normocephalic. Atraumatic. PERRL, EOMI. Neck soft and supple. No point tenderness or step off. Cardiovascular: Irregularly irregular tachycardia no murmurs, rubs, or gallops appreciated. Respiratory: Positive tachypnea. Decreased breath sounds left base. Gastrointestinal: Abdomen soft, nontender, with normoactive bowel sounds. No rebound or guarding. Neurological: Awake. Alert. Nonfocal, nonlateralizing. Skin: No rash. Normal color. No pallor. Musculoskeletal: No pedal edema. Full range of motion extremities. Const Vital Signs: 02/14/23 15:52 02/14/23 16:42 02/14/23 16:50 Temperature 97.2 F L Temperature Source Temporal Pulse Rate 122 H 127 H Respiratory Rate 24 H 27 H Respiratory Effort Short of Breath Respiratory Pattern Tachypnea Blood Pressure 125/85 H Blood Pressure Mean 98 Pulse Ox 92 96 Oxygen Delivery Method Room Air Nasal Cannula Nasal Cannula Oxygen Flow Rate (L/min) 1 1 02/14/23 16:25 02/14/23 17:05 Temperature Temperature Source Pulse Rate 113 H Respiratory Rate Respiratory Effort Respiratory Pattern Blood Pressure Blood Pressure Mean Pulse Ox Oxygen Delivery Method Nasal Cannula Oxygen Flow Rate (L/min) 2 MDM MDM MDM Narrative Medical decision making narrative: Patient was reportedly hypoxic according to respiratory therapist. She was placed on nasal cannula oxygen. EKG was obtained which shows atrial fibrillation with rapid ventricular response at 121 bpm without ectopy or acute ST changes on my individual interpretation. She will be given diltiazem for rate control which she currently takes. In the differential diagnosis is pleural effusion versus COPD exacerbation versus CHF versus a combination of both. She may also have pneumonia or pneumothorax present as well from her recent thoracentesis. Chest x-ray will be obtained. I reviewed her laboratory work and she has a normal white count of 8.9, hemogl obin normal at 12.5, hematocrit 40.2, platelet count normal at 271. In review of her electrolyte panel, chloride is slightly elevated at 108 which I think is nonspecific BUN of 41 and creatinine of 1.52, but she has a history of chronic kidney disease. Glucose is appropriately elevated at 96, anion gap low at 4. High-sensitivity troponin is 21 with BNP slightly elevated in the 300s. Chest x-ray 1 view interpreted by myself independently does show reaccumulation of the fluid and a moderately sized left pleural effusion. She is requiring nasal cannula oxygen currently. Given her reaccumulation of pleural fluid, I discussed patient with Dr. Pena, the hospitalist, who will place the patient on observation and have a pulmonology consult. She is moderately rate controlled with her atrial fibrillation. Disposition is assigned to observation on the PCU. Patient is in stable condition. History & Record Review Discussion w/independent historian: Patient Additional record(s) reviewed:: Prior ED visit and Prior labs Lab Data Attestation: I reviewed the patient's lab results. Labs: Laboratory Results - last 24 hr 02/14/23 02/14/23 16:20 16:32 WBC 8.9 RBC 4.35 Hgb 12.5 Hct 40.2 MCV 92.4 MCH 28.7 MCHC 31.1 L RDW Std Deviation 48.3 H RDW Coeff of Sudha 14.3 Plt Count 271 MPV 10.4 Immature Gran % (Auto) 0.900 Neut % (Auto) 71.1 H Lymph % (Auto) 13.7 L [place] % (Auto) 10.8 H Eos % (Auto) 2.8 Baso % (Auto) 0.7 Absolute Neuts (auto) 6.3 Absolute Lymphs (auto) 1.22 Nucleated RBC % 0 Sodium 142 Potassium 4.0 Chloride 108 H Carbon Dioxide 30.0 Anion Gap 4 L BUN 41 H Creatinine 1.52 H Estim Creat Clear Calc 27.79 Est GFR (MDRD) Af Amer 42 L Est GFR (MDRD) Non-Af 35 L BUN/Creatinine Ratio 27.0 H Glucose 96 Lactic Acid 0.9 Calcium 8.6 Total Bilirubin 0.30 AST 12 L ALT 18 Alkaline Phosphatase 70 Troponin I High Sens 21 B-Natriuretic Peptide 354.0 H Total Protein 6.2 L Albumin 2.1 L Globulin 4.1 Albumin/Globulin Ratio 0.5 L Urine Color Yellow Urine Clarity Sl. Cloudy Urine pH 5.0 Ur Specific [place] 1.020 Urine Protein 100 H Urine Glucose (UA) Normal Urine Ketones Negative Urine Occult Blood 10 H Urine Nitrite Negative Urine Bilirubin Negative Urine Urobilinogen 1 H Ur Leukocyte Esterase Negative Urine RBC 0 SEEN Urine WBC 0 SEEN Ur Squamous Epith Cells 0-5 SEEN Amorphous Sediment 2+ Urine Bacteria 0 SEEN Urine Mucus 0 SEEN Radiography Diagnostic Testing: Clinical Impression(s) from Imaging Studies Chest X-Ray 02/14/23 16:50 IMPRESSION: Moderate left pleural effusion unchanged Electronically Signed: Bharath Carrillo MD at 17:39 EST , Discharge Plan Dx/Rx/DC Orders Clinical Impression: HARDEN (dyspnea on exertion), Essential (primary) hypertension, Atrial fibrillation, Pleural effusion, left Disposition Disposition: [facility]
[2023-02-14 16:43] LABS: Bacteria 0 SEEN /hpf (None Seen); Mucous, Urine 0 SEEN /hpf (<or=2+); Red Blood Cells-Urine 0 SEEN /hpf (0-5); White Blood Cells 0 SEEN /hpf (0-5)
[2023-02-14] MEDS: dilTIAZem 25 MG/5 ML Vial 10 MG IV BOLUS (16:45)
--- NOTE | 2023-02-14 16:50 | RAD_ITS ---
STUDY: X-RAY CHEST REASON FOR EXAM: Female, 83 years old. Shortness of breath, pleural effusion TECHNIQUE: Single frontal view of the chest. COMPARISON: February 12, 2023 chest x-ray FINDINGS: Surgical clips right axilla. The lungs are clear and expanded. Moderate left pleural effusion. Cardiomegaly. Normal mediastinum and binh. Normal visualized pulmonary arteries. Normal visualized aortic arch and descending thoracic aorta. Normal visualized thoracic spine. Normal visualized ribs, clavicles, and shoulders. There is no demonstrated abnormality of the visualized soft tissue structures of the upper abdomen. RAD/Chest 1 View (Portable) IMPRESSION: Moderate left pleural effusion unchanged Electronically Signed: Bharath Carrillo MD at 17:39 EST ,
[2023-02-14 16:51] LABS: Absolute Lymphocyte Count 1.22 X10^3/uL (0.83-4.51); Absolute Neutrophil Count 6.3 X10^3/uL (2.0-7.7); Basophil# 0.06 X10^3/uL; Basophil% 0.7 % (0-1); Eosinophil# 0.25 X10^3/uL; Eosinophils% 2.8 % (0-5); Hematocrit 40.2 % (37-47); Hemoglobin 12.5 g/dL (12.0-15.0); Lymphocyte # 1.22 X10^3/ul (0.83-4.51); Lymphocyte % 13.7 % (19-41); Mean Corp Hgb Conc 31.1 g/dL (32-36); Mean Corpuscular Hgb 28.7 pg (27.0-32.0); Mean Corpuscular Volume 92.4 fL (81-99); Mean Platelet Vol. 10.4 fl (6.2-12.0); Monocyte# 0.96 X10^3/uL; Monocyte% 10.8 % (0-10); NRBC Flagged by Analyzer 0 % (0-5); Neutrophil # 6.31 X10^3/uL (2.7-7.7); Neutrophil % 71.1 % (47-70); Platelet Count 271 K/mm3 (150-450); RBC Distribution Width CV 14.3 % (11.6-14.6); RBC Distribution Width SD 48.3 fl (35.1-43.9); Red Blood Count 4.35 M/mm3 (4.2-5.4); White Blood Count 8.9 K/mm3 (4.4-11.0)
[2023-02-14 17:04] LABS: Color, Urine Yellow (Yellow); Glucose, Dipstick Normal (Normal); Ketone-Dipstick Negative (Negative); Leukocyte Esterase-Dipstick Negative /ul (Negative); Nitrite-Dipstick Negative (Negative); Occult Blood-Urine 10 /ul (Negative); Protein-Dipstick 100 mg/dl (Negative); Urine Bilirubin Dipstick Negative (Negative); Urine Clarity Sl. Cloudy (Clear); Urine Urobilinogen 1 mg/dl (Normal)
[2023-02-14 17:08] LABS: ALB/GLOB Ratio 0.5 RATIO (0.9-2.4); AST(SGOT) 12 U/L (15-37); Alanine Aminotransfer ALT/SGPT 18 U/L (13-56); Albumin, Serum 2.1 g/dL (3.2-5.0); Alkaline Phosphatase 70 U/L (45-117); Anion Gap 4 (5-15); BUN 41 mg/dL (7-18); Calcium,Total 8.6 mg/dL (8.5-10.1); Chloride 108 mmol/L (98-107); Creatinine, Serum 1.52 mg/dL (0.55-1.02); EST Glomerular Filtration Rate 35 mL/min (>60); Est Glom Filt Rate - Afr Amer 42 mL/min (>60); Estimated Creatinine Clearance 27.79 ml/min; Globulin 4.1 g/dL (2.2-4.2); Glucose 96 mg/dL (74-106); Protein, Total 6.2 g/dL (6.4-8.2); Sodium Level 142 mmol/L (136-145); Troponin-I HS 21 pg/mL (3.0-54.0)
[2023-02-14 17:18] LABS: Amorphous Sediment 2+; Squamous Epithelial Cells - UA 0-5 SEEN /hpf (5-10)
[2023-02-14 17:23] LABS: Lactic Acid 0.9 mmol/L (0.4-1.9)
--- NOTE | 2023-02-14 17:51 | PCM.HP.STD ---
HPI - General General Date of Admission: 02/14/23 Date of Service: 02/14/23 Chief Complaint: Worsening dyspnea on exertion HPI Narrative TONJA SÁNCHEZ, is a 83 F who presented to [facility] ED on 02/14/2023 with worsening dyspnea on exertion. Patient seen at bedside in the ED. Sitting comfortably in bed, conversing normally, no acute distress. Patient satting in the mid 90s on 2 L nasal cannula, no increased work of breathing noted. Patient has recently required 2 thoracenteses with significant fluid removal from left side of her chest. First thoracentesis was on 01/25, had 1.5 L of fluid removed. Second thoracentesis was on 02/12, had 2 L removed at that time. Patient states that she tolerated both those procedures well. However, she had worsening shortness of breath on exertion starting yesterday, similar to previous. She was concerned that the fluid had reaccumulated and came to the ED for further evaluation. Patient follows cardiology in the office, last office visit was about 2 months ago. She primarily follows with them for her atrial fibrillation and diastolic heart failure. Patient states for medications have not changed much recently, and her heart rate was currently well-controlled with her medications at home until recently. She has no previous history of heart failure exacerbations. Patient does have a remote history of right-sided breast cancer, had a lumpectomy done at that time with no recurrence of her cancer. Patient denies any recent unintentional weight loss, night sweats, fevers or chills. Patient lives at home by her self, has been able to do things around the home for self without issue up to this point. However, with her recurrent shortness of breath she has had difficulty completing tasks on the home. Denies any other acute concerns at this time. [facility] Medical History (Updated 02/14/23 @ 20:05 by Maria Esther Prakash) Actinic keratosis Atrial fibrillation Back pain BMI 39.0-39.9,adult Breast cancer Cancer Cardiology follow-up encounter Chronic anticoagulation Chronic diastolic (congestive) heart failure Chronic kidney disease, stage 3b CKD (chronic kidney disease) stage 3, GFR 30-59 ml/min COPD (chronic obstructive pulmonary disease) Diabetes Diabetes mellitus Diastolic dysfunction Dietary restriction Disc degeneration, lumbar Erosion of bladder suspension mesh Essential (primary) hypertension Fatigue Former smoker High cholesterol History of atrial fibrillation History of CHF (congestive heart failure) History of echocardiogram History of edema History of pain when walking History of renal disease History of steroid therapy History of stress test Hyperlipidemia Hypersomnia Hypertension Hypertension Hypothyroidism Hypoxia Injury of back Insulin dependent diabetes mellitus Longstanding persistent atrial fibrillation Low iron Non-rheumatic tricuspid valve insufficiency Obesity On home oxygen therapy Overactive bladder Restless legs Rheumatoid arthritis Right hip pain Secondary pulmonary arterial hypertension Shortness of breath on exertion Skin cancer Skin cancer, basal cell Skin lesion Stage 2 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 SHAKIRA (stress urinary incontinence, female) Tobacco dependence in remission UTI (urinary tract infection) Wears dentures Wears glasses Home Medications cholecalciferol (vitamin D3) 325 mcg (13,000 unit) capsule 325 mcg PO DAILY supplement 06/14/21 [History Last Taken 10/08/21] potassium chloride 20 mEq tablet,extended release 20 meq PO DAILY supplement 06/14/21 [History Last Taken 10/08/21] apixaban 2.5 mg tablet (Eliquis) 2.5 mg PO DAILY blood thinner 10/09/21 [History Last Taken 10/08/21] glimepiride 1 mg tablet 1 mg PO DAILY blood sugar 10/09/21 [History Last Taken 10/08/21] acetaminophen 500 mg tablet 1,000 mg (2 x 500 mg) PO Q6H PRN PRN Pain Score 1-10 #0 tabs 10/24/21 [Rx Last Taken Unknown] metoprolol tartrate 100 mg tablet 100 mg PO DAILY 10/30/21 [History Last Taken Unknown] insulin degludec 100 unit/mL (3 mL) subcutaneous pen 40 unit subcut QHS blood sugar 01/29/22 [History Last Taken Unknown] levothyroxine 200 mcg tablet 200 mcg PO DAILY thyroid 01/29/22 [History Last Taken Unknown] ferrous sulfate 325 mg (65 mg iron) tablet (Feosol) 325 mg PO DAILY 04/04/22 [History Last Taken Unknown] sacubitril 24 mg-valsartan 26 mg tablet (Entresto) 1 tab PO BID #1 TAB 04/23/22 [Rx Last Taken Unknown] furosemide 40 mg tablet 40 mg PO DAILY #90 tabs 08/28/22 [Rx Last Taken Unknown] diltiazem HCl 240 mg capsule,extended release 24 hr 240 mg PO BID heart #180 caps 09/27/22 [Rx Last Taken Unknown] rosuvastatin 20 mg tablet 20 mg PO QHS cholesterol #30 tabs 10/08/22 [Rx Last Taken Unknown] albuterol sulfate 90 mcg/actuation aerosol inhaler 1 inh inhalation Q4H PRN COPD 11/14/22 [History Last Taken Unknown] mirabegron 50 mg tablet,extended release 24 hr (Myrbetriq) 50 mg PO QHS 11/14/22 [History Last Taken Unknown] bumetanide 2 mg tablet 2 mg PO DAILY 02/14/23 [History Last Taken Unknown] levothyroxine 50 mcg tablet 50 mcg PO DAILY 02/14/23 [History Last Taken Unknown] meloxicam 15 mg tablet 15 mg PO DAILY 02/14/23 [History Last Taken Unknown] Allergy/AdvReac Type Severity Reaction Status Date / Time Sulfa (Sulfonamide Allergy PEELING Verified 02/14/23 15:52 Antibiotics) RASH Family History Mother Colon cancer Cancer skin, bladder Daughter Cancer Thyroid Sister CAD (coronary artery disease) Surgical History History of cardioversion (03/20/19) History of excision of lesion History of hysterectomy History of left heart catheterization (05/31/14) History of partial mastectomy Hx of colonoscopy Hx of left cataract extraction Hx of local excision of skin lesion Hx of right cataract extraction Social History (Updated 02/14/23 @ 16:43 by Doris Fernandez) household members: none housing: house current occupational status: retired Smoking Status: Former smoker how long ago did patient quit smokin, 2p/day second hand exposure: Yes alcohol intake: current alcohol intake frequency: holidays/special occasions only substance use type: does not use ROS Constitutional Constitutional: Reports fatigue; Denies change in weight, chills, fever(s) or weakness Eyes Eyes: Denies change in vision Cardiovascular Cardiovascular: Reports dyspnea on exertion, edema and orthopnea; Denies chest pain, lightheadedness, rapid heart rate or syncope Respiratory/Chest Respiratory/Chest: Denies cough, shortness of breath at rest or wheezing Gastrointestinal Gastrointestinal: Denies abdominal pain Genitourinary Genitourinary: Denies dysuria Neurologic Neurologic: Denies dizziness, focal weakness, headache(s), numbness or paresthesias Vital Signs Vital Signs Vital Signs: 02/14/23 15:52 02/14/23 16:42 02/14/23 16:50 Temperature 97.2 F L Temperature Source Temporal Pulse Rate 122 H 127 H Respiratory Rate 24 H 27 H Respiratory Effort Short of Breath Respiratory Pattern Tachypnea Blood Pressure 125/85 H Blood Pressure Mean 98 Pulse Ox 92 96 Oxygen Delivery Method Room Air Nasal Cannula Nasal Cannula Oxygen Flow Rate (L/min) 1 1 02/14/23 16:25 02/14/23 17:05 Temperature Temperature Source Pulse Rate 113 H Respiratory Rate Respiratory Effort Respiratory Pattern Blood Pressure Blood Pressure Mean Pulse Ox Oxygen Delivery Method Nasal Cannula Oxygen Flow Rate (L/min) 2 Weight Weight: 116.9 kg Body Mass Index (BMI) 39.0 Physical Exam Const alert and oriented x3 Constitutional Narrative: Pleasant elderly female, obese, sitting comfortably in bed, conversing normally, no acute distress. Satting in mid 90s on 2 L nasal cannula, no increased work of breathing noted. General Appearance: cooperative and comfortable HEENT normocephalic, head/scalp atraumatic, hearing grossly normal bilaterally, nasal mucous membranes and turbinates normal and moist oral mucous membranes Eyes PERRL, EOMs intact bilaterally and conjunctivae normal Neck full ROM, no lymphadenopathy and supple Lymph Lymphatic: no lymphadenopathy noted Chest inspection of chest normal Resp Resp Narrative: Significantly decreased breath sounds in left lung base. Otherwise, mildly decreased breath sounds throughout. No wheezing or crackles noted. Cardio no murmurs and peripheral pulses 2+ throughout Cardio Narrative: Tachycardic, irregular rhythm. GI normal to inspection, nondistended, normoactive bowel sounds, soft to palpation, non-tender and non-distended Back/Spine normal ROM Extremity full ROM Extremity Narrative: +2-3 bilateral lower extremity pitting edema. Skin no rashes or lesions noted Neuro moves all extremities and no focal motor deficits Speech: speech normal Psych mental status grossly normal Results Lab / Micro Data 02/14/23 16:20 02/14/23 16:20 Labs: Laboratory Results - last 24 hr 02/14/23 16:20: WBC 8.9, RBC 4.35, Hgb 12.5, Hct 40.2, MCV 92.4, MCH 28.7, MCHC 31.1 L, RDW Std Deviation 48.3 H, RDW Coeff of Sudha 14.3, Plt Count 271, MPV 10.4, Immature Gran % (Auto) 0.900, Neut % (Auto) 71.1 H, Lymph % (Auto) 13.7 L, Amador % (Auto) 10.8 H, Eos % (Auto) 2.8, Baso % (Auto) 0.7, Absolute Neuts (auto) 6.3, Absolute Lymphs (auto) 1.22, Nucleated RBC % 0, Sodium 142, Potassium 4.0, Chloride 108 H, Carbon Dioxide 30.0, Anion Gap 4 L, BUN 41 H, Creatinine 1.52 H, Estim Creat Clear Calc 27.79, Est GFR (MDRD) Af Amer 42 L, Est GFR (MDRD) Non-Af 35 L, BUN/Creatinine Ratio 27.0 H, Glucose 96, Lactic Acid 0.9, Calcium 8.6, Total Bilirubin 0.30, AST 12 L, ALT 18, Alkaline Phosphatase 70, Troponin I High Sens 21, B-Natriuretic Peptide 354.0 H, Total Protein 6.2 L, Albumin 2.1 L, Globulin 4.1, Albumin/Globulin Ratio 0.5 L 02/14/23 16:32: Urine Color Yellow, Urine Clarity Sl. Cloudy, Urine pH 5.0, Ur Specific [place] 1.020, Urine Protein 100 H, Urine Glucose (UA) Normal, Urine Ketones Negative, Urine Occult Blood 10 H, Urine Nitrite Negative, Urine Bilirubin Negative, Urine Urobilinogen 1 H, Ur Leukocyte Esterase Negative, Urine RBC 0 SEEN, Urine WBC 0 SEEN, Ur Squamous Epith Cells 0-5 SEEN, Amorphous Sediment 2+, Urine Bacteria 0 SEEN, Urine Mucus 0 SEEN Micro: Microbiology 02/14/23 16:20 Nasal Secretion SARS-CoV-2 & FLU Antigen (Rapid) - Final Imagaing Radiology Impression Chest X-Ray 02/14/23 16:50 IMPRESSION: Moderate left pleural effusion unchanged Electronically Signed: Bharath Carrillo MD at 17:39 EST , Assessment & Plan Assessment/Plan (1) Pleural effusion, left: (2) Atrial fibrillation: PLAN: Plan Patient is an 83-year-old female who presented with [facility] ED on 02/14/2023 with worsening shortness of breath with exertion. 1. Recurrent left-sided pleural effusion, acute hypoxia with history of COPD Unclear etiology of pleural effusions at this time. S/p thoracentesis on 01/25 with 1.5 L of fluid removed, repeat thoracentesis on 02/12 with 2 L of fluid removed. Chest x-ray on admit with moderate recurrent left-sided pleural effusion. Patient satting in mid 90s on 2 L nasal cannula in the ED. Fluid studies from thoracentesis on 01/25 show a transudative fluid but atypical epithelioid cells were noted. Appears that effusion was suspected to be secondary to heart failure in setting of poorly controlled A-fib with RVR. However, I would not expect a one-sided pleural effusion to recur this quickly if only secondary to heart failure. Have concern for an underlying malignancy given patient's known history of breast cancer. CT chest/abdomen/pelvis without contrast admission showed a 14 mm sclerotic right acetabular lesion, with radiology recommendation that a bone scan could be helpful if metastatic disease is a concern; no other overt malignant findings. ? Admit under inpatient status to PCU. Pulmonology consulted. Orders placed for ultrasound-guided thoracentesis with radiology tomorrow with appropriate fluid studies. Wean supplemental oxygen as able. Continued home short acting inhaler as needed. 2. Paroxysmal atrial fibrillation with RVR Follows with cardiology, last office visit on 11/30/2022. Has longstanding history of paroxysmal A-fib. Failed cardioversion in 2019. Patient was also intolerant of amiodarone. Since then, patient has been successfully rate controlled per cardiology. Home medications appear to be Lopressor 100 daily, diltiazem 240 mg twice daily, Eliquis 2.5 twice daily. EKG on admit showed A-fib with heart rate in the 120s. Unclear if the A-fib with RVR could be causing volume overload, or rather secondary to possible cardiac excitation due to volume overload. S/p IV diltiazem 10 mg x 1 dose in the ED with some improvement in her heart rate. ? Continue home Cardizem, Lopressor, Eliquis. IV Lopressor every 6 hours as needed ordered as well. Monitor telemetry. Low threshold to consult cardiology. 3. Debility Patient lives at home by herself, has previously been able to do all things around the house for self without significant issue. However, given her recurrent pleural effusions recently with worsening shortness of breath on exertion, she has had difficulty doing things around the home on her own. ? PT/OT/case management consulted. Chronic medical conditions: ? Hypertension, hyperlipidemia, CHF: Continue home diltiazem, Lopressor, statin, Entresto. Home diuretic regimen is unclear, will start p.o. Lasix 40 mg twice daily for now. ? Obesity: BMI 38 on admit. Encouraged lifestyle modifications. Complicates care and prognosis. ? CKD stage III: Creatinine 1.52 on admission, at baseline. Monitor BMP. ? Type 2 diabetes: Home medications of insulin degludec 40 units at night, glimepiride 1 mg daily. Last A1c of 6.9% in 09/2022. BG 96 on admit. Will start Lantus 25 units at night with sliding scale insulin for now, adjust regimen as needed. Repeat A1c ordered. ? Hypothyroidism: Most recent TSH of 2.92 on 10/15/2022. Repeat TSH ordered. Continue home Synthroid. ? Overactive bladder: Continue home Myrbetriq. ? S/p left knee replacement in 11/2022 ? Remote history of right-sided breast cancer s/p lumpectomy DVT prophylaxis: Eliquis CODE STATUS: Full code, verified Expected disposition: TBD Total clinical time spent by myself addressing the patient's medical issues, reviewing all the data, and collaborating with patient's care team: 55 minutes.
--- NOTE | 2023-02-14 17:57 | NURSING ---
DR BREWSTER FOR DR NOLASCO
[2023-02-14 18:28] LABS: Prothrombin Time (Protime)PT. 12.9 SECONDS (11.7-14.9)
[2023-02-14 18:29] LABS: Partial Thromboplast Time 30.3 Seconds (24.1-36.2)
--- NOTE | 2023-02-14 18:32 | CT_ITS ---
STUDY: CT CHEST, ABDOMEN T PELVIS WITHOUT CONTRAST REASON FOR EXAM: Female, 83 years old. assess L pleural effusion, r/o intraabdominal path RADIATION DOSAGE (If Supplied By Facility): CTDIvol = ( 27.36 ) mGy, DLP = ( 2431.96 ) mGycm TECHNIQUE: Transaxial imaging was performed without the administration of intravenous contrast material. Individualized dose optimization techniques were used for this CT. COMPARISON: Chest x-ray from today. CT chest January 25, 2023. FINDINGS: CHEST Left lower lobe and lingular consolidation. Moderate loculated effusion increased on the left. 2.3 cm Right lower lobe groundglass opacity unchanged. Cardiomegaly calcific coronary artery disease. Prosthetic aortic and mitral valve prostheses.. There are multiple small lymph nodes within the mediastinum, which are normal in size and morphology most compatible with reactive lymph hyperplasia. Normal hilar regions. Normal unenhanced pulmonary arteries. Calcified plaque along the aorta and its branches. Normal osseous structures. 19 mm cyst left lobe of the liver. ABDOMEN 19 mm cyst left lobe of the liver. Normal gallbladder and extrahepatic biliary system. Normal spleen. Normal pancreas. Normal bilateral adrenal glands. Punctate bilateral nonobstructing nephroliths. Normal visualized stomach. Air-fluid levels small bowel. Increased stool throughout the colon. The appendix is visualized and appears normal. Calcified plaque along the aorta and its branches. Normal inferior vena cava. Normal retroperitoneum. Fat-containing umbilical hernia. Spondylosis and multilevel vacuum disc phenomena. 14 mm sclerotic lesion superior aspect acetabulum on the right. PELVIS Normal urinary bladder. Normal visualized small intestine. Normal visualized colon. There is no pelvic fluid. There is no pelvic lymphadenopathy or mass lesion. Normal visualized pelvic arteries. Normal abdominal wall. Normal osseous structures. CT/CT Chest, Abd, Pelvis WO Cont IMPRESSION: Mild ileus. Left lower lobe airspace disease and loculated effusion increased. Stable right lower lobe interstitial infiltrate. Bilateral nonobstructing nephroliths. 14 mm sclerotic lesion right acetabulum. Bone scan may be helpful if metastatic disease is a concern. Electronically Signed: Bharath Carrillo MD at 21:21 EST ,
[2023-02-14] MEDS: Furosemide 40 MG Tablet PO (20:33)
[2023-02-14] MEDS: APIXABAN 2.5 MG TABLET (WCH) PO (20:34)
[2023-02-14] MEDS: SACUBITRIL/VALSARTAN 24/26 MG TABLET 1 EACH PO (20:34)
[2023-02-14] MEDS: Mirabegron 50 MG TAB.ER.24H PO (20:35)
[2023-02-14] MEDS: dilTIAZem CD 240 MG Capsule PO (20:35)
[2023-02-14] MEDS: Atorvastatin Calcium 40 MG Tablet PO (20:36)
[2023-02-14] MEDS: Insulin Lispro 100 UNIT/ML INSULN.PEN SC (20:51)
[2023-02-14 21:09] LABS: LDH 210 U/L (84-246)
[2023-02-14 23:04] LABS: Thyroid Stim Hormone (TSH) 2.07 uIU/mL (0.358-3.74)
[2023-02-14 23:07] LABS: Bedside Glucose 153 mg/dL (74-106)
[2023-02-15] VITALS (16 sets, daily range): BP systolic 102–154; BP diastolic 44–87; PULSE 51–109; RESP 16–94; TEMP 35.9–37.2; O2SAT 92–98
--- NOTE | 2023-02-15 | IMM_PTH ---
PATIENT: TONJA SÁNCHEZ LOC: PCU U#:[id number] AGE/SX: 83/F ROOM: [facility] RE02/15/[address]: Dr. Christina Menard MD : 1940 BED: 1 DIS: 02/16/2023 SPEC #: [id number] RECD: 02/18/23 14:32 STATUS: SOUT REQ #: [id number] HAMLET: 02/15/23 00:[address]: Christina Menard DEPT: IMMUNOHISTOCHEMISTRY RECD BY: Amira Gutierrez ENTERED: 02/18/23 14:33 SP TYPE: IMMUNO OTHR DR: Dr. Amaury Pena, DO MD Dr. Edgardo Irby, DO MD Dr. Alexy Laureano Chi, MD Dr. Tanmay Panchabhai, MD Christina Muller, [facility] Tissues: THORACIC FLUID Procedures: CD20 (add) CD45 (add) CD5 (add) CD79A (add) CD3 (initial) PHYSICIAN & [address] [address] SPECIMEN INFORMATION: Tissue Source: Thoracentesis fluid Clinical Info: Pleural effusion Specimen Number: [id number] CPT code: 46034, [id number] x4 METHODOLOGY: Deparaffinized sections of prefer/formalin-fixed tissue or PAP/DQ stained slides are incubated with monoclonal/polyclonal antibodies/oligonucleotide probes. Localization is made via biotin free immunoperoxidase method. Appropriate controls are performed and reacted as expected. Results on target cell population are indicated in the following table: RESULTS: ANTIBODY / CLONE RESULT CD3 (PS1) positive CD5 (SP10) positive CD20 (L26) positive CD45 (RP2/18) positive CD79a (11E3) positive These tests were developed and their performance characteristics determined by [facility]. They may not have been cleared or approved by the U.S. Food and Drug Administration. The FDA has determined that such clearance or approval is not necessary. The above immunohistochemical/dualISH markers are ordered and reviewed by the Pathologist. INTERPRETATION: Thoracentesis fluid (cell block): Consistent with lymphocytic effusion. See comment. MOISES/aneat 02/15/2023 Comment: Lymphocytes are small and predominantly T-cell in nature, favor benign lymphocytic effusion.
[2023-02-15] MEDS: Levothyroxine 100 MCG Tablet 200 MCG PO (05:05)
[2023-02-15 06:15] LABS: Bedside Glucose 112 mg/dL (74-106)
[2023-02-15 06:23] LABS: Hematocrit 40.7 % (37-47); Hemoglobin 12.7 g/dL (12.0-15.0); Mean Corp Hgb Conc 31.2 g/dL (32-36); Mean Corpuscular Hgb 29.5 pg (27.0-32.0); Mean Corpuscular Volume 94.4 fL (81-99); Mean Platelet Vol. 10.1 fl (6.2-12.0); Platelet Count 255 K/mm3 (150-450); RBC Distribution Width CV 14.2 % (11.6-14.6); RBC Distribution Width SD 49.8 fl (35.1-43.9); Red Blood Count 4.31 M/mm3 (4.2-5.4); White Blood Count 9.2 K/mm3 (4.4-11.0)
[2023-02-15 07:22] LABS: Anion Gap 3 (5-15); BUN 37 mg/dL (7-18); Chloride 106 mmol/L (98-107); Creatinine, Serum 1.54 mg/dL (0.55-1.02); EST Glomerular Filtration Rate 34 mL/min (>60); Est Glom Filt Rate - Afr Amer 41 mL/min (>60); Estimated Creatinine Clearance 27.43 ml/min; Glucose 118 mg/dL (74-106); Potassium 3.8 mmol/L (3.5-5.1); Sodium Level 141 mmol/L (136-145)
--- NOTE | 2023-02-15 08:03 | EX.PCM.CONCC ---
Assessment & Plan Assessment/Plan (1) Pleural effusion, left: PLAN: Plan RECOMMENDATIONS: 1. Plan for ultrasound-guided thoracentesis. 2. Check pleural fluid cell count and differential, cultures, LDH, total protein and glucose. 3. Autoimmune work-up is ordered. 4. Supplemental oxygen, if needed, to maintain saturations at or above 90%. 5. Consider cardiology consultation for medical optimization of her CHF and atrial fibrillation. 6. Ultimately, the patient may likely require outpatient referral to thoracic surgery, given the loculated nature of the effusion. 7. The patient needs to reestablish care in the pulmonary medicine office. She has been lost to follow-up for the last 3 years. IMPRESSIONS: 1. Recurrent pleural effusion Unclear etiology. Cardiac implications are certainly a possibility given her elevated BNP and atrial fibrillation with RVR at presentation. However, prior pleural fluid analysis revealed lymphocyte predominance. Therefore, will obtain autoimmune work-up as well. In the interim, would recommend a repeat thoracentesis for therapeutic relief. It would likely be worthwhile having the patient evaluated by cardiology for further medical optimization of her CHF and atrial fibrillation. Given that the patient is developing a complicated pleural space on CT imaging, she will likely require outpatient referral to thoracic surgery. At the present time, the patient is maintaining appropriate oxygen saturations on room air. 2. Heart failure with preserved ejection fraction/atrial fibrillation with RVR Continue diuresis as tolerated by hemodynamics and renal function. Continue Cardizem and beta-triny for rate control. As noted above, consider cardiology evaluation for medical optimization. 3. History of mild COPD The patient was previously established in the pulmonary medicine office, but has been lost to follow-up since 2019. Prior PFTs only demonstrated a mild obstructive ventilatory impairment. Continue as needed aerosol treatments. Reestablish care in the pulmonary medicine office. 4. History of chronic kidney disease/diabetes mellitus/hypothyroidism/obesity/hypertension Complicates care, management, recovery and prognosis. Continue home medications as indicated. This note was generated with [employer] software. It may contain incorrect words, spelling, and punctuation that were not noted in checking the note before signing. HPI Consult Data Date of Consult: 02/15/23 HPI Narrative Reason for Consultation: Pleural effusion HPI Narrative: The patient is an 83-year-old female, with a history as outlined below, who presented to the emergency department on February 14 with worsening shortness of breath. The patient has a known history of mild obstructive lung disease based upon prior PFTs and heart failure with preserved ejection fraction. Previously, the patient was evaluated in the pulmonary medicine clinic, but has been lost to follow-up since 2019. More recently, the patient has been suffering from shortness of breath related to a recurrent left-sided pleural effusion. The patient initially underwent an ultrasound-guided thoracentesis on January 25 with 1.5 L of fluid removed. The procedure once again had to be repeated on February 12 with 1.6 L of fluid removed. The pleural fluid itself was lymphocyte predominant on January 25. Cytology was negative for malignancy. On presentation to the emergency department, the patient was documented to be tachycardic and tachypneic. Initial laboratory evaluation revealed no evidence of a leukocytosis. Coagulation profile was unremarkable. Chemistry profile was notable for a creatinine of 1.52. Lactate was normal. BNP was elevated at 354. Chest x-ray demonstrated a moderate left-sided pleural effusion. CT chest/abdomen/pelvis demonstrated a left lower lobe consolidation with a moderate loculated effusion, cardiomegaly and a 1.4 cm sclerotic lesion involving the right acetabulum. The patient was noted to be in atrial fibrillation with RVR in the emergency department. The patient was subsequently admitted to the hospital, with tentative plans to undergo an ultrasound-guided thoracentesis. [facility] Medical History (Updated 02/14/23 @ 20:05 by Maria Esther Prakash) Actinic keratosis Atrial fibrillation Back pain BMI 39.0-39.9,adult Breast cancer Cancer Cardiology follow-up encounter Chronic anticoagulation Chronic diastolic (congestive) heart failure Chronic kidney disease, stage 3b CKD (chronic kidney disease) stage 3, GFR 30-59 ml/min COPD (chronic obstructive pulmonary disease) Diabetes Diabetes mellitus Diastolic dysfunction Dietary restriction Disc degeneration, lumbar Erosion of bladder suspension mesh Essential (primary) hypertension Fatigue Former smoker High cholesterol History of atrial fibrillation History of CHF (congestive heart failure) History of echocardiogram History of edema History of pain when walking History of renal disease History of steroid therapy History of stress test Hyperlipidemia Hypersomnia Hypertension Hypertension Hypothyroidism Hypoxia Injury of back Insulin dependent diabetes mellitus Longstanding persistent atrial fibrillation Low iron Non-rheumatic tricuspid valve insufficiency Obesity On home oxygen therapy Overactive bladder Restless legs Rheumatoid arthritis Right hip pain Secondary pulmonary arterial hypertension Shortness of breath on exertion Skin cancer Skin cancer, basal cell Skin lesion Stage 2 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 SHAKIRA (stress urinary incontinence, female) Tobacco dependence in remission UTI (urinary tract infection) Wears dentures Wears glasses Home Medications cholecalciferol (vitamin D3) 325 mcg (13,000 unit) capsule 325 mcg PO DAILY supplement 06/14/21 [History Last Taken 10/08/21] potassium chloride 20 mEq tablet,extended release 20 meq PO DAILY supplement 06/14/21 [History Last Taken 10/08/21] apixaban 2.5 mg tablet (Eliquis) 2.5 mg PO DAILY blood thinner 10/09/21 [History Last Taken 10/08/21] glimepiride 1 mg tablet 1 mg PO DAILY blood sugar 10/09/21 [History Last Taken 10/08/21] acetaminophen 500 mg tablet 1,000 mg (2 x 500 mg) PO Q6H PRN PRN Pain Score 1-10 #0 tabs 10/24/21 [Rx Last Taken Unknown] metoprolol tartrate 100 mg tablet 100 mg PO DAILY 10/30/21 [History Last Taken Unknown] insulin degludec 100 unit/mL (3 mL) subcutaneous pen 40 unit subcut QHS blood sugar 01/29/22 [History Last Taken Unknown] levothyroxine 200 mcg tablet 200 mcg PO DAILY thyroid 01/29/22 [History Last Taken Unknown] ferrous sulfate 325 mg (65 mg iron) tablet (Feosol) 325 mg PO DAILY 04/04/22 [History Last Taken Unknown] sacubitril 24 mg-valsartan 26 mg tablet (Entresto) 1 tab PO BID #1 TAB 04/23/22 [Rx Last Taken Unknown] furosemide 40 mg tablet 40 mg PO DAILY #90 tabs 08/28/22 [Rx Last Taken Unknown] diltiazem HCl 240 mg capsule,extended release 24 hr 240 mg PO BID heart #180 caps 09/27/22 [Rx Last Taken Unknown] rosuvastatin 20 mg tablet 20 mg PO QHS cholesterol #30 tabs 10/08/22 [Rx Last Taken Unknown] albuterol sulfate 90 mcg/actuation aerosol inhaler 1 inh inhalation Q4H PRN COPD 11/14/22 [History Last Taken Unknown] mirabegron 50 mg tablet,extended release 24 hr (Myrbetriq) 50 mg PO QHS 11/14/22 [History Last Taken Unknown] bumetanide 2 mg tablet 2 mg PO DAILY 02/14/23 [History Last Taken Unknown] levothyroxine 50 mcg tablet 50 mcg PO DAILY 02/14/23 [History Last Taken Unknown] meloxicam 15 mg tablet 15 mg PO DAILY 02/14/23 [History Last Taken Unknown] Allergy/AdvReac Type Severity Reaction Status Date / Time Sulfa (Sulfonamide Allergy PEELING Verified 02/14/23 15:52 Antibiotics) RASH Family History Mother Colon cancer Cancer skin, bladder Daughter Cancer Thyroid Sister CAD (coronary artery disease) Surgical History History of cardioversion (03/20/19) History of excision of lesion History of hysterectomy History of left heart catheterization (05/31/14) History of partial mastectomy Hx of colonoscopy Hx of left cataract extraction Hx of local excision of skin lesion Hx of right cataract extraction Social History (Updated 02/14/23 @ 16:43 by Doris Fernandez) household members: none housing: house current occupational status: retired Smoking Status: Former smoker how long ago did patient quit smokin, 2p/day second hand exposure: Yes alcohol intake: current alcohol intake frequency: holidays/special occasions only substance use type: does not use ROS ROS Narrative 10 systems were reviewed with pertinent positives as noted in the HPI above. Physical Exam Const alert and no apparent distress General Appearance: cooperative HEENT normocephalic and head/scalp atraumatic Eyes PERRL, EOMs intact bilaterally and conjunctivae normal Neck supple General: trachea midline Chest inspection of chest normal Resp normal respiratory effort Auscultation: diminished lung sounds left Cardio S1 normal heart sound and S2 normal heart sound Rhythm: abnormal rhythm GI normal to inspection, nondistended, normoactive bowel sounds Extremity General Extremity: edema; Negative for clubbing Skin no rashes or lesions noted Neuro oriented x3, CN's II-XII intact bilaterally and moves all extremities Psych cooperative and affect normal Lab / Micro Data 02/15/23 06:05 02/15/23 06:05 Labs: Laboratory Results - last 24 hr 02/14/23 16:20: WBC 8.9, RBC 4.35, Hgb 12.5, Hct 40.2, MCV 92.4, MCH 28.7, MCHC 31.1 L, RDW Std Deviation 48.3 H, RDW Coeff of Sudha 14.3, Plt Count 271, MPV 10.4, Immature Gran % (Auto) 0.900, Neut % (Auto) 71.1 H, Lymph % (Auto) 13.7 L, [place] % (Auto) 10.8 H, Eos % (Auto) 2.8, Baso % (Auto) 0.7, Absolute Neuts (auto) 6.3, Absolute Lymphs (auto) 1.22, Nucleated RBC % 0, PT 12.9, INR 1.0, APTT 30.3, Sodium 142, Potassium 4.0, Chloride 108 H, Carbon Dioxide 30.0, Anion Gap 4 L, BUN 41 H, Creatinine 1.52 H, Estim Creat Clear Calc 27.79, Est GFR (MDRD) Af Amer 42 L, Est GFR (MDRD) Non-Af 35 L, BUN/Creatinine Ratio 27.0 H, Glucose 96, Lactic Acid 0.9, Calcium 8.6, Total Bilirubin 0.30, AST 12 L, ALT 18, Alkaline Phosphatase 70, Lactate Dehydrogenase 210, Troponin I High Sens 21, B-Natriuretic Peptide 354.0 H, Total Protein 6.2 L, Albumin 2.1 L, Globulin 4.1, Albumin/Globulin Ratio 0.5 L, TSH 2.07 02/14/23 16:32: Urine Color Yellow, Urine Clarity Sl. Cloudy, Urine pH 5.0, Ur Specific [place] 1.020, Urine Protein 100 H, Urine Glucose (UA) Normal, Urine Ketones Negative, Urine Occult Blood 10 H, Urine Nitrite Negative, Urine Bilirubin Negative, Urine Urobilinogen 1 H, Ur Leukocyte Esterase Negative, Urine RBC 0 SEEN, Urine WBC 0 SEEN, Ur Squamous Epith Cells 0-5 SEEN, Amorphous Sediment 2+, Urine Bacteria 0 SEEN, Urine Mucus 0 SEEN 02/14/23 20:43: POC Glucose 153 H 02/15/23 05:51: POC Glucose 112 H 02/15/23 06:05: WBC 9.2, RBC 4.31, Hgb 12.7, Hct 40.7, MCV 94.4, MCH 29.5, MCHC 31.2 L, RDW Std Deviation 49.8 H, RDW Coeff of Sudha 14.2, Plt Count 255, MPV 10.1, Sodium 141, Potassium 3.8, Chloride 106, Carbon Dioxide 32.0, Anion Gap 3 L, BUN 37 H, Creatinine 1.54 H, Estim Creat Clear Calc 27.43, Est GFR (MDRD) Af Amer 41 L, Est GFR (MDRD) Non-Af 34 L, BUN/Creatinine Ratio 24.0 H, Glucose 118 H, Calcium 9.0 Micro: Microbiology 02/14/23 16:20 Nasal Secretion SARS-CoV-2 & FLU Antigen (Rapid) - Final Imagaing Radiology Impression Chest X-Ray 02/14/23 16:50 IMPRESSION: Moderate left pleural effusion unchanged Electronically Signed: Bharath Carrillo MD at 17:39 EST Reading Location ID and State: [place] / [place] Tel , Service support , Chest/Abdomen/Pelvis CT 02/14/23 18:32 IMPRESSION: Mild ileus. Left lower lobe airspace disease and loculated effusion increased. Stable right lower lobe interstitial infiltrate. Bilateral nonobstructing nephroliths. 14 mm sclerotic lesion right acetabulum. Bone scan may be helpful if metastatic disease is a concern. Electronically Signed: Bharath Carrillo MD at 21:21 EST Reading Location ID and State: [place] / [place] Tel , Service support , Charges/Coding Visit Charges Inpatient E&M: 00488 Init Hosp L3
[2023-02-15 08:27] LABS: Hemoglobin A1c 7.1 % (3.8-5.6)
[2023-02-15 08:42] LABS: ALB/GLOB Ratio 0.6 RATIO (0.9-2.4); Globulin 4.1 g/dL (2.2-4.2); LDH 222 U/L (84-246); Protein, Total 6.4 g/dL (6.4-8.2)
--- NOTE | 2023-02-15 09:25 | PN.HOSP_ITS ---
Reason for Visit Reason for Visit: Diagnoses Unspecified atrial fibrillation (02/14/23) Pleural effusion, not elsewhere classified (02/14/23) Subjective Subjective Breathing is improving after thoracentesis Objective Data Objective Data Vital Signs: Vital Signs Temp Pulse Resp BP Pulse Ox O2 Del Method O2 Flow Rate 97.7 F L 51 L 20 H 154/85 H 92 Room Air 2 02/15/23 08:00 02/15/23 08:25 02/15/23 08:25 02/15/23 08:00 02/15/23 08:00 02/15/23 08:25 02/14/23 22:00 Oxygen Flow Rate (L/min) 2 Oxygen Delivery Method Room Air Weight: 114.4 kg Body Mass Index (BMI) 38.2 Intake & Output: Intake and Output for Last 24 Hours 02/13/23 02/14/23 02/15/23 23:59 23:59 23:59 Intake Total 240 / 240 Output Total 900 / 900 Balance -660 / -660 Lab / Micro Data 02/15/23 06:05 02/15/23 06:05 Labs: Laboratory Results - last 24 hr 02/14/23 16:20: WBC 8.9, RBC 4.35, Hgb 12.5, Hct 40.2, MCV 92.4, MCH 28.7, MCHC 31.1 L, RDW Std Deviation 48.3 H, RDW Coeff of Sudha 14.3, Plt Count 271, MPV 10.4, Immature Gran % (Auto) 0.900, Neut % (Auto) 71.1 H, Lymph % (Auto) 13.7 L, [place] % (Auto) 10.8 H, Eos % (Auto) 2.8, Baso % (Auto) 0.7, Absolute Neuts (auto) 6.3, Absolute Lymphs (auto) 1.22, Nucleated RBC % 0, PT 12.9, INR 1.0, APTT 30.3, Sodium 142, Potassium 4.0, Chloride 108 H, Carbon Dioxide 30.0, Anion Gap 4 L, BUN 41 H, Creatinine 1.52 H, Estim Creat Clear Calc 27.79, Est GFR (MDRD) Af Amer 42 L, Est GFR (MDRD) Non-Af 35 L, BUN/Creatinine Ratio 27.0 H, Glucose 96, Lactic Acid 0.9, Calcium 8.6, Total Bilirubin 0.30, AST 12 L, ALT 18, Alkaline Phosphatase 70, Lactate Dehydrogenase 210, Troponin I High Sens 21, B- Natriuretic Peptide 354.0 H, Total Protein 6.2 L, Albumin 2.1 L, Globulin 4.1, Albumin/Globulin Ratio 0.5 L, TSH 2.07 02/14/23 16:32: Urine Color Yellow, Urine Clarity Sl. Cloudy, Urine pH 5.0, Ur Specific [place] 1.020, Urine Protein 100 H, Urine Glucose (UA) Normal, Urine Ketones Negative, Urine Occult Blood 10 H, Urine Nitrite Negative, Urine Bilirubin Negative, Urine Urobilinogen 1 H, Ur Leukocyte Esterase Negative, Urine RBC 0 SEEN, Urine WBC 0 SEEN, Ur Squamous Epith Cells 0-5 SEEN, Amorphous Sediment 2+, Urine Bacteria 0 SEEN, Urine Mucus 0 SEEN 02/14/23 20:43: POC Glucose 153 H 02/15/23 05:51: POC Glucose 112 H 02/15/23 06:05: WBC 9.2, RBC 4.31, Hgb 12.7, Hct 40.7, MCV 94.4, MCH 29.5, MCHC 31.2 L, RDW Std Deviation 49.8 H, RDW Coeff of Sudha 14.2, Plt Count 255, MPV 10. 1, Sodium 141, Potassium 3.8, Chloride 106, Carbon Dioxide 32.0, Anion Gap 3 L, BUN 37 H, Creatinine 1.54 H, Estim Creat Clear Calc 27.43, Est GFR (MDRD) Af Amer 41 L, Est GFR (MDRD) Non-Af 34 L, BUN/Creatinine Ratio 24.0 H, Glucose 118 H, Hemoglobin A1c 7.1 H, Calcium 9.0, Lactate Dehydrogenase 222, Total Protein 6.4, Globulin 4.1, Albumin/Globulin Ratio 0.6 L Micro: Microbiology 02/14/23 16:20 Nasal Secretion SARS-CoV-2 & FLU Antigen (Rapid) - Final Radiography Diagnostic Testing: Radiology Impression Chest X-Ray 02/14/23 16:50 IMPRESSION: Moderate left pleural effusion unchanged Electronically Signed: Bharath Carrillo MD at 17:39 EST Reading Location ID and State: [facility] / [place] Tel , Service support , Chest/Abdomen/Pelvis CT 02/14/23 18:32 IMPRESSION: Mild ileus. Left lower lobe airspace disease and loculated effusion increased. Stable right lower lobe interstitial infiltrate. Bilateral nonobstructing nephroliths. 14 mm sclerotic lesion right acetabulum. Bone scan may be helpful if metastatic disease is a concern. Electronically Signed: Bharath Carrillo MD at 21:21 EST , Physical Exam Narrative General: Alert, oriented, no apparent distress HEENT: Atraumatic, normocephalic Eyes: Anicteric, normal conjunctiva, extraocular movements grossly intact Neck: Supple Respiratory: Slightly coarse at bases, normal respiratory effort Cardiovascular: Intermittently mildly tachycardic GI: Soft, nontender, nondistended Extremities: No edema Musculoskeletal: Moving all extremities Neuro: No overt focal neurological deficits Skin: No rashes appreciated Psych: Cooperative Assessment & Plan Assessment/Plan (1) Pleural effusion, left: (2) Atrial fibrillation: PLAN: Plan Patient is an 83-year-old female who presented with [facility] ED on 02/14/2023 with worsening shortness of breath with exertion. 1. Recurrent left-sided pleural effusion, acute hypoxia with history of COPD Unclear etiology of pleural effusions at this time. S/p thoracentesis on 01/25 with 1.5 L of fluid removed, repeat thoracentesis on 02/12 with 2 L of fluid removed. Chest x-ray on admit with moderate recurrent left-sided pleural effusion. Patient satting in mid 90s on 2 L nasal cannula in the ED. Fluid studies from thoracentesis on 01/25 show a transudative fluid but atypical epithelioid cells were noted. Appears that effusion was suspected to be secondary to heart failure in setting of poorly controlled A-fib with RVR. However, I would not expect a one-sided pleural effusion to recur this quickly if only secondary to heart failure. Have concern for an underlying malignancy given patient's known history of breast cancer. CT chest/abdomen/pelvis without contrast admission showed a 14 mm sclerotic right acetabular lesion, with radiology recommendation that a bone scan could be helpful if metastatic disease is a concern; no other overt malignant findings. ? Admit under inpatient status to PCU. Pulmonology consulted. Orders placed for ultrasound-guided thoracentesis with radiology tomorrow with appropriate fluid studies. Wean supplemental oxygen as able. Continued home short acting inhaler as needed. -02/15: Pulm following, ultrasound-guided thoracentesis, will need to reestablish in pulmonary medicine office and may need outpatient referral for thoracic surgery, autoimmune work-up pending 2. Paroxysmal atrial fibrillation with RVR Follows with cardiology, last office visit on 11/30/2022. Has longstanding history of paroxysmal A-fib. Failed cardioversion in 2019. Patient was also intolerant of amiodarone. Since then, patient has been successfully rate controlled per cardiology. Home medications appear to be Lopressor 100 daily, diltiazem 240 mg twice daily, Eliquis 2.5 twice daily. EKG on admit showed A- fib with heart rate in the 120s. Unclear if the A-fib with RVR could be causing volume overload, or rather secondary to possible cardiac excitation due to volume overload. S/p IV diltiazem 10 mg x 1 dose in the ED with some improvement in her heart rate. ? Continue home Cardizem, Lopressor, Eliquis. IV Lopressor every 6 hours as needed ordered as well. Monitor telemetry. Low threshold to consult cardiology . -02/15: Continue Eliquis, patient also on diltiazem, Lasix, metoprolol. Last echo was in 2021 with an EF of 60% and unable to assess diastolic dysfunction, will repeat echo given presentation, recurrent effusion, A-fib with RVR 3. Debility Patient lives at home by herself, has previously been able to do all things around the house for self without significant issue. However, given her recurr ent pleural effusions recently with worsening shortness of breath on exertion, she has had difficulty doing things around the home on her own. ? PT/OT/case management consulted. Chronic medical conditions: ? Hypertension, hyperlipidemia, CHF: Continue home diltiazem, Lopressor, statin, Entresto. Home diuretic regimen is unclear, will start p.o. Lasix 40 mg twice daily for now. ? Obesity: BMI 38 on admit. Encouraged lifestyle modifications. Complicates care and prognosis. ? CKD stage III: Creatinine 1.52 on admission, at baseline. Monitor BMP. ? Type 2 diabetes: Home medications of insulin degludec 40 units at night, glimepiride 1 mg daily. Last A1c of 6.9% in 09/2022. BG 96 on admit. Will start Lantus 25 units at night with sliding scale insulin for now, adjust regimen as needed. Repeat A1c ordered. ? Hypothyroidism: Most recent TSH of 2.92 on 10/15/2022. Repeat TSH ordered. Continue home Synthroid. ? Overactive bladder: Continue home Myrbetriq. ? S/p left knee replacement in 11/2022 ? Remote history of right-sided breast cancer s/p lumpectomy DVT prophylaxis: Eliquis CODE STATUS: Full code, verified Expected disposition: TBD Total clinical time spent by myself addressing the patient's medical issues, reviewing all the data, and collaborating with patient's care team: 40 minutes. Charges/Coding Visit Charges Inpatient E&M: 80219 Subs Hosp L2
--- NOTE | 2023-02-15 09:30 | ECHOCS_ITS ---
Reason For Study: CHF Procedure This was a 2D Doppler, Color Flow transthoracic echocardiogram. Contrast injection was performed. Exam performed portable in patient room. Left Ventricle Normal LV size. Mild concentric left ventricular hypertrophy. The left ventricular ejection fraction is 45 %. Mild global left ventricular systolic dysfunction. No regional wall motion abnormalities noted. Right Ventricle Normal RV size. Normal systolic function. Atria The left atrium is severely enlarged. The right atrium is mildly enlarged. Mitral Valve Normal mitral valve. Tricuspid Valve Normal tricuspid valve. Mild (1+) tricuspid valve insufficiency. Pulmonary artery systolic pressure is 34 mmHg. Aortic Valve Trisinus/trileaflet aortic valve. Pulmonic Valve The pulmonic valve is not well visualized. Great Vessels Normal aortic root. The pulmonary artery is normal size. Normal inferior vena cava. Pericardium/Pleural No pericardial effusion. Medication Diluted definity 2.5ml given slow IV push to enhance endocardial definition. MMode/2D Measurements & Calculations LVIDd: 4.6 cm IVSd: 1.3 cm Ao root diam: 3.1 cm LVIDs: 3.6 cm LVPWd: 1.4 cm RVDd: 4.4 cm FS: 21.9 % LAV(MOD-bp): 129.3 ml LVAd ap4: 26.4 cm2 SV(MOD-sp4): 25.1 ml LAV(MOD-bp) Indexed: 57.3 ml/m2 LVLd ap4: 8.2 cm LAV(MOD-sp2): 117.1 ml EDV(MOD-sp4): 70.6 ml LAV(MOD-sp4): 128.4 ml EDV(sp4-el): 72.1 ml LVAs ap4: 19.7 cm2 LVLs ap4: 7.6 cm ESV(MOD-sp4): 45.5 ml ESV(sp4-el): 43.0 ml EF(MOD-sp4): 35.5 % EF(sp4-el): 40.3 % SV(sp4-el): 29.0 ml LA A4 area: 34.8 cm2 LA dimension(2D): 4.5 cm RA A4 area: 23.8 cm2 TAPSE: 1.1 cm Doppler Measurements & Calculations MV E max graeme: 93.5 cm/sec Lat Peak E' Graeme: 8.9 cm/sec Med Peak E' Graeme: 6.9 cm/sec E/E' lat: 10.6 E/E' med: 13.6 Ao V2 max: 112.3 cm/sec LV V1 max: 94.3 cm/sec PA V2 max: 55.9 cm/sec Ao max P.0 mmHg LV V1 max P.6 mmHg Ao V2 mean: 79.3 cm/sec LV V1 mean P.8 mmHg Ao mean P.9 mmHg LV V1 mean: 61.1 cm/sec Ao V2 VTI: 21.7 cm LV V1 VTI: 18.1 cm AV (velocity ratio): 0.84 TR max graeme: 273.2 cm/sec TR max P.9 mmHg ECHO/Echo Complete W/ Contrast Interpretation Summary Normal LV size. Mild concentric left ventricular hypertrophy. The left ventricular ejection fraction is 45 %. Mild global left ventricular systolic dysfunction. Pulmonary artery systolic pressure is 34 mmHg. Contrast injection was performed. Ordering Physician: Christina Menard Referring Physician: Alexy Douglas Chi Performed By: Tiera Woodard, JOSE, RVT
[2023-02-15] MEDS: Ferrous Sulfate 325 MG Tablet PO (10:02)
[2023-02-15] MEDS: dilTIAZem CD 240 MG Capsule PO ×2 (10:03→21:35)
[2023-02-15] MEDS: Metoprolol Tartrate 100 MG Tablet PO (10:03)
[2023-02-15] MEDS: SACUBITRIL/VALSARTAN 24/26 MG TABLET 1 EACH PO ×2 (10:03→21:41)
[2023-02-15] MEDS: Furosemide 40 MG Tablet PO ×2 (10:03→16:21)
[2023-02-15] MEDS: Meloxicam 15 MG Tablet PO (10:04)
[2023-02-15 10:40] LABS: Rheumatoid Factor < 10.0 IU/mL (<15)
[2023-02-15 11:39] LABS: Bedside Glucose 211 mg/dL (74-106)
[2023-02-15] MEDS: Lidocaine 2% (20 ml mdv) 20 ML Vial INFILT (11:58)
--- NOTE | 2023-02-15 11:58 | FLU_PTH ---
PATIENT: TONJA SÁNCHEZ LOC: PCU U#:[id number] AGE/SX: 83/F ROOM: [facility] RE02/15/[address]: Dr. Christina Menard MD : 1940 BED: 1 DIS: 02/16/2023 SPEC #: [id number] RECD: 02/15/23 12:24 STATUS: RICHARD REQ #: [id number] HAMLET: 02/15/23 11:[address]: Christina Menard DEPT: CYTOLOGY RECD BY: Ana Williamson ENTERED: 02/15/23 13:25 SP TYPE: Fluid OTHR DR: Dr. Amaury Pena, DO MD Dr. Edgardo Irby, MD Dr. Alexy Moraes Dr., Chi, MD Dr. Tanmay Panchabhai, MD Christina Muller, SHIP SCRAPER-C Tissues: Pleural fluid, NOS Procedures: Special Stain Group II Surgery Specimen Level IV Cytospin Fluid HEADER OPERATION: Ultrasound-guided thoracentesis PRE-OP DIAGNOSIS: Pleural effusion TISSUE SUBMITTED: Thoracentesis fluid for cytology DIAGNOSIS CYTOLOGY Thoracentesis fluid for cytology (cytospin and cell block): Consistent with lymphocytic effusion. See comment. SJ:lonnie 02/18/2023 COMMENT Immunohistochemistry ([id number]) supports the above diagnosis. Lymphocytes are small and predominantly T-cells in nature, favor benign lymphocytic effusion. Please make reference to previous specimen ([id number]), thoracentesis fluid for cytology with diagnosis of polytypic lymphocytes present and reactive mesothelial cells and macrophages are present and [id number], pleural fluid for cytology with diagnosis of negative for malignant cells. Correlation with clinical findings and appropriate follow up are necessary. Case has been reviewed in consultation with Dr. Brock who concurs with the above diagnosis. IDC:AM CYTOLOGY STUDY Slides are reviewed. CYTOLOGY GROSS Received is 80 ml of yellow cloudy fluid labeled with the patient's name and and designated per the requisition as thoracentesis. Submitted for cytology preparation including cell block. / lonnie 02/15/2023 TC:5 CPT: 16095, 88007
--- NOTE | 2023-02-15 12:09 | PRO.PCM_ITS ---
Procedure Report Date of Procedure: 02/15/23 Assessment & Plan Assessment/Plan (1) Pleural effusion, left: PLAN: PROCEDURE: Ultrasound Guided Thoracentesis ORDERING PROVIDER: Dr. Edgardo Greenwood INDICATION: Female, 83 years old. Recurrent left pleural effusion. PROVIDER: ANAMIKA Bravo PROCEDURE: The risks, benefits, and alternatives to the procedure were explained to the patient. The specific risks of bleeding, infection, and pneumothorax requiring chest tube insertion were discussed and accepted. Written informed consent was obtained. The patient was placed in the sitting, upright position. Ultrasonographic evaluation of the bilateral lower pleural spaces was carried out. An adequate pocket was identified in the left lower pleural space.The overlying skin was prepped and draped in sterile fashion. 2% lidocaine was administered subcutaneously for local anesthesia. Under ultrasound guidance, a 5-Syriac thoracentesis needle/catheter system was advanced into the left posterior lower pleural fluid collection. No fluid was able to be aspirated in this pocket. Once again under ultrasound guidance a new catheter was redirected more superior and 910 ml of light leigh colored fluid was drained. 100 mL of this fluid was collected and sent to the laboratory for analysis, as per requesting physician. The catheter was removed, and a sterile dressing was applied. The patient tolerated the procedure well. A chest x-ray was ordered. IMPRESSION: Successful ultrasound-guided thoracentesis of recurrent left pleural effusion. Procedures Radiology Radiology US Procedures: [id number] Thoracentesis
--- NOTE | 2023-02-15 12:15 | RAD_ITS ---
STUDY: X-RAY CHEST REASON FOR EXAM: Female, 83 years old. Post thora TECHNIQUE: AP inspiration and expiration views. COMPARISON: Comparison is made with prior study dated February 14, 2023. FINDINGS: The patient is status post left thoracentesis. No evidence of pneumothorax. RAD/Chest Insp/Exp 2 View IMPRESSION: No evidence of pneumothorax following the left thoracentesis. Electronically Signed: Huey Gomez MD at 12:29 EST ,
[2023-02-15 12:23] LABS: Cytology, Body Fluid / CSF SEE PATHOLOGY REPORT
[2023-02-15 13:01] LABS: Body Fluid Mononuclear WBC # 4.057 10^3/uL; Body Fluid Mononuclear WBC % 83.7 %; Body Fluid Polynuclear WBC # 0.791 10^3/uL; Body Fluid Polynuclear WBC % 16.3 %; Body Fluid Total Cells Counted 4.929 10^3/ul; White Blood Count/Body Fluid 4.848 10^3/uL
[2023-02-15] MEDS: Insulin Lispro 100 UNIT/ML INSULN.PEN SC ×3 (13:02→21:35)
[2023-02-15 13:04] LABS: Auto B Fluid Analyzer BKGD Ct COUNTS W/IN LIMITS (W/IN LIMITS)
[2023-02-15 13:05] LABS: Appearance/Body Fluid SL CLDY; Color/Body Fluid YELLOW; Source- Body Fluid THORACENTESIS
[2023-02-15 13:13] LABS: Glucose, Body Fluid 200 mg/dL (40-70)
[2023-02-15 13:18] LABS: LDH,Body Fluid 214 Units/L (Not Establ.); Protein, Body Fluid 2.8 g/dL (Not Establ.)
[2023-02-15 13:44] LABS: Red Cell Count/Body Fluid 1035 /mm3
[2023-02-15 13:56] LABS: Lymphocytes 50 %; Macrophages 6 %; Monocytes 5 %; Neutrophil (Segs) 38 %; Other Cell Type/BF 1 %
[2023-02-15 14:00] LABS: Body Fluid QC Type(s) BF1Q,BF2Q
[2023-02-15 16:41] LABS: Bedside Glucose 166 mg/dL (74-106)
[2023-02-15] MEDS: Insulin Glargine-YFGN 100 UNIT/ML Pen 25 UNIT SC (21:34)
[2023-02-15] MEDS: Atorvastatin Calcium 40 MG Tablet PO (21:35)
[2023-02-15] MEDS: APIXABAN 2.5 MG TABLET (WCH) PO (21:35)
[2023-02-15] MEDS: Mirabegron 50 MG TAB.ER.24H PO (21:36)
[2023-02-15 22:39] LABS: Bedside Glucose 187 mg/dL (74-106)
[2023-02-16] VITALS (7 sets, daily range): BP systolic 111–117; BP diastolic 59–73; PULSE 76–88; RESP 16–18; TEMP 36.3–36.6; O2SAT 90–95
[2023-02-16] MEDS: Levothyroxine 100 MCG Tablet 200 MCG PO (03:45)
[2023-02-16 04:14] LABS: Bedside Glucose 149 mg/dL (74-106)
[2023-02-16 06:31] LABS: Absolute Lymphocyte Count 1.95 X10^3/uL (0.83-4.51); Absolute Neutrophil Count 6.4 X10^3/uL (2.0-7.7); Basophil# 0.05 X10^3/uL; Basophil% 0.5 % (0-1); Eosinophil# 0.28 X10^3/uL; Eosinophils% 2.9 % (0-5); Hematocrit 37.3 % (37-47); Hemoglobin 11.6 g/dL (12.0-15.0); Lymphocyte # 1.95 X10^3/ul (0.83-4.51); Lymphocyte % 20.3 % (19-41); Mean Corp Hgb Conc 31.1 g/dL (32-36); Mean Corpuscular Hgb 29.3 pg (27.0-32.0); Mean Corpuscular Volume 94.2 fL (81-99); Mean Platelet Vol. 9.8 fl (6.2-12.0); Monocyte# 0.77 X10^3/uL; NRBC Flagged by Analyzer 0 % (0-5); Neutrophil % 66.8 % (47-70); Platelet Count 252 K/mm3 (150-450); RBC Distribution Width CV 14.2 % (11.6-14.6); Red Blood Count 3.96 M/mm3 (4.2-5.4); White Blood Count 9.6 K/mm3 (4.4-11.0)
[2023-02-16 06:51] LABS: Bedside Glucose 145 mg/dL (74-106)
[2023-02-16 08:35] LABS: Anion Gap 8 (5-15); BUN 42 mg/dL (7-18); BUN/Creat Ratio 24.3 RATIO (10-20); Calcium,Total 8.4 mg/dL (8.5-10.1); Chloride 103 mmol/L (98-107); Creatinine, Serum 1.73 mg/dL (0.55-1.02); EST Glomerular Filtration Rate 30 mL/min (>60); Est Glom Filt Rate - Afr Amer 36 mL/min (>60); Estimated Creatinine Clearance 24.42 ml/min; Glucose 158 mg/dL (74-106); Sodium Level 139 mmol/L (136-145)
[2023-02-16] MEDS: Ferrous Sulfate 325 MG Tablet PO (09:10)
[2023-02-16] MEDS: dilTIAZem CD 240 MG Capsule PO (09:11)
[2023-02-16] MEDS: APIXABAN 2.5 MG TABLET (WCH) PO (09:11)
[2023-02-16] MEDS: Furosemide 40 MG Tablet PO (09:11)
[2023-02-16] MEDS: SACUBITRIL/VALSARTAN 24/26 MG TABLET 1 EACH PO (09:11)
[2023-02-16] MEDS: Meloxicam 15 MG Tablet PO (09:12)
--- NOTE | 2023-02-16 09:40 | CASEMGMT ---
Addendum entered by Shauna Chong 02/16/23 12:14: Pt requested list of podiatrists in the area. Same provided at this time. Addendum entered by Shauna Chong 02/16/23 12:09: Pt states she only has an oxygen concentrator @ home--she does not have any portable O2 tanks. Pt to be tested on RA @ rest and w/ambulation. If she qualifies for any home O2, pt to be sent home w/portable O2 tank from [facility] supply, and [employer] to be notified for portable o2 tanks to be delivered to pt's home. [place] [facility] [place] Note: RN CM Assessment: RN CM to room to meet with patient for initial transition planning/care coordination assessment. RN CM introduced self and role at [facility]. Patient lying in bed, alert and oriented. Patient willing to participate in assessment and is able to answer all questions appropriately. Care providers, pharmacy, and demographics verified. Patient wishes to discharge home and declines need for HHC. Patient states she has no needs or concerns at this time. PCP: Dr Douglas Specialists: Dr Arreola, urologist; Mera, cabinetmaker helper; Dr Greenwood, [place] [facility] Preferred Pharmacy: [facility] Insurance: Layla MAYES Prescription Benefit: yes Living Will/HPOA: Has done both LW and HCPOA, who is her daughter, Jaquelin Kinney LNOK: daughter, Marleny. Step-son, Garret. Sister Living Arrangements: Patient lives alone in a 1 story home with no steps to enter. Patient states she is independent at home w/ADL's and IADL's. Transportation: self, family DME: Patient states she has grab bars, shower chair, lift chair, functioning glucometer w/supplies, walker (uses mostly outside of the home), O2 through [employer] that she uses PRN (she is not sure what liter flow), and pulse ox at home. Patient states she has 2 hospital beds but does no use them. SNF/HHC: Patient has been to [facility] TCU and has had [facility] HHC in the past. Pt declines wanting HHC at this time, stating I don't like that, them coming into my home Plan: Patient wishes to discharge home with family support and follow-up plans in place. Follow for any increase in Home O2 needs. Green sheet on chart. Shania YUSUFN RN CM
--- NOTE | 2023-02-16 10:15 | PCM.PN.HOSP ---
Reason for Visit Reason for Visit: Diagnoses Unspecified atrial fibrillation (02/15/23) Pleural effusion, not elsewhere classified (02/15/23) Objective Data Objective Data Vital Signs: Vital Signs Temp Pulse Resp BP Pulse Ox O2 Del Method O2 Flow Rate 97.3 F L 76 16 111/59 L 93 Room Air 2 02/16/23 09:09 02/16/23 09:09 02/16/23 09:09 02/16/23 09:09 02/16/23 09:09 02/16/23 09:09 02/16/23 08:05 Oxygen Flow Rate (L/min) 2 Oxygen Delivery Method [4] Room Air Oxygen Delivery Method [3] Room Air Oxygen Delivery Method [2] Room Air Oxygen Delivery Method [1 ( Room Air Initial Baseline)] Oxygen Delivery Method Room Air Weight: 114.4 kg Body Mass Index (BMI) 38.2 Intake & Output: Intake and Output for Last 24 Hours 02/14/23 02/15/23 02/16/23 23:59 23:59 23:59 Intake Total 640 / 990 550 / 550 Output Total 4130 / 4380 550 / 550 Balance -3490 / -3390 0 / 0 Lab / Micro Data 02/16/23 06:14 02/16/23 06:14 Labs: Laboratory Results - last 24 hr 02/15/23 06:05: Rheumatoid Factor < 10.0 02/15/23 11:20: POC Glucose 211 H 02/15/23 11:58: Fluid Source THORACENTESIS, Fluid Color YELLOW, Fluid Appearance SL CLDY, Fluid WBC 4.848, Fluid RBC 1035, Fluid Tot Cell Count 4.929 H, Fld Polynuclear WBCs # 0.791, Fld Polynuclear WBCs % 16.3, Fluid Mononuclear WBCs 4.057, Fld Mononuclear WBCs % 83.7, Fluid Neutrophils 38, Fluid Lymphocytes 50, Fluid Monocytes 5, Fluid Macrophages 6, Fluid Other Cells 1, Fl Pathologist Comment May follow, Fluid Glucose 200 H, Fluid Comment 2 SEE COMMENT 02/15/23 12:19: Fluid Total Protein 2.8, Fluid LDH 214 02/15/23 16:20: POC Glucose 166 H 02/15/23 21:33: POC Glucose 187 H 02/16/23 03:40: POC Glucose 149 H 02/16/23 06:14: WBC 9.6, RBC 3.96 L, Hgb 11.6 L, Hct 37.3, MCV 94.2, MCH 29.3, MCHC 31.1 L, RDW Std Deviation 49.0 H, RDW Coeff of Sudha 14.2, Plt Count 252, MPV 9.8, Immature Gran % (Auto) 1.500 H, Neut % (Auto) 66.8, Lymph % (Auto) 20.3, [place] % (Auto) 8.0, Eos % (Auto) 2.9, Baso % (Auto) 0.5, Absolute Neuts (auto) 6.4, Absolute Lymphs (auto) 1.95, Nucleated RBC % 0, Sodium 139, Potassium 4.0, Chloride 103, Carbon Dioxide 28.0, Anion Gap 8, BUN 42 H, Creatinine 1.73 H, Estim Creat Clear Calc 24.42, Est GFR (MDRD) Af Amer 36 L, Est GFR (MDRD) Non-Af 30 L, BUN/Creatinine Ratio 24.3 H, Glucose 158 H, Calcium 8.4 L 02/16/23 06:33: POC Glucose 145 H Micro: Microbiology 02/14/23 16:32 Urine, Catheterized Urine Culture - Preliminary Culture exhibits no growth. 02/16/23 16:41 Blood Culture (Wb) - Anticubital Right Bacteria Detection (PCR) - Final 02/14/23 16:20 Blood Culture (Wb) - Anticubital Right Blood Culture - Preliminary 02/14/23 16:20 Nasal Secretion SARS-CoV-2 & FLU Antigen (Rapid) - Final Radiography Diagnostic Testing: Radiology Impression Echocardiogram 02/15/23 09:30 Interpretation Summary Normal LV size. Mild concentric left ventricular hypertrophy. The left ventricular ejection fraction is 45 %. Mild global left ventricular systolic dysfunction. Pulmonary artery systolic pressure is 34 mmHg. Contrast injection was performed. Ordering Physician: Christina Menard Referring Physician: Alexy Douglas Chi Performed By: Tiera Woodard, RDCS, RVT Chest X-Ray 02/15/23 12:15 IMPRESSION: No evidence of pneumothorax following the left thoracentesis. Electronically Signed: Huey Gomez MD at 12:29 EST ,
[2023-02-16] MEDS: Metoprolol Tartrate 100 MG Tablet PO (10:28)
[2023-02-16] MEDS: Insulin Lispro 100 UNIT/ML INSULN.PEN SC (10:40)
[2023-02-16 10:59] LABS: Bedside Glucose 189 mg/dL (74-106)
[2023-02-16 14:29] LABS: Magnesium 2.2 mg/dL (1.6-2.6)
--- NOTE | 2023-02-16 14:59 | DCINST_ITS ---
Discharge Instructions Diet Discharge Diet: - (-DASH diet, 3000 mg sodium restriction, 2 L fluid restriction) Activity Discharge Activity: - (Increase activity as tolerated) Follow Up Care Test Results: Test results from this visit will be discussed in further detail at your follow- up appointment, if applicable. Discharge Plan Admission Admit Date/Time: 02/15/23 16:16 Primary Reason for Your Visit: Pleural effusion Attending Provider: Christina Menard Primary Care Provider: Alexy Douglas Chi Consulting Providers: Amaury Pena; Bradley Morel; Edgardo Greenwood; Tobin Medel; Ricky Clayton; Bessy Galan FIREBREAK CUTTER Instructions Patient Instructions: ED Pleural Effusion Additional Instructions / Restrictions: DISCHARGE INSTRUCTIONS PLEASE READ *Please take this with you to your next doctors appointment* -Please follow-up with Dr. Greenwood upon discharge. Please call their office upon discharge to inquire about your hospital follow-up appointment time as it appears you have an appointment with Dr. Greenwood 05/13/2022. -Please follow-up with with your field sales specialist upon discharge. Please call their office to schedule hospital follow-up appointment upon discharge. -For your kidneys and your heart and it is advised that you stop your meloxicam -Would recommend lab work (BMP) to check your kidney function in 2 to 3 days through your primary care physician's office. Please call their office upon discharge to obtain order for lab work. -Due to your glucose being well controlled on lower doses of diabetes medicines you will be discharged on 30 units of long-acting insulin at bedtime and would recommend holding her glimepiride. Please continue to monitor glucose as there requirement may go up once you are back in her home environment -Weigh yourself every day. A sudden weight gain can mean you are retaining fluid. Weigh yourself at the same time of day and in the same kind of clothes. Ideally, weigh yourself first thing in the morning after you empty your bladder, but before you eat breakfast. -Please call your physician if your weight goes up by more than 2 pounds in 1 day or 5 pounds in 1 week. This can be a sign that you are retaining more fluid than you should be. Clues to weight gain include checking your ankles for swelling, or noticing you are short of breath when you lie down -Please limit your sodium intake to less than 3 g/day. Here are tips: Limit canned, dried, packaged, and fast foods. Don't add salt to your food at the table. Season foods with herbs instead of salt when you cook. When you eat out, ask that the neurology specialist not add any salt to your dish. Don't eat fried or greasy foods. Be careful of bottled beverages. They can contain a lot of salt -Call 911 right away if you have: -Severe shortness of breath, such that you can't catch your breath even while resting -Severe chest pain that does not resolve with rest or nitroglycerin -Sarles, foamy mucus with cough and shortness of breath -An ongoing rapid or irregular heartbeat -Passing out or fainting -Stroke symptoms such as sudden numbness or weakness on one side of your face, arm, or leg or sudden confusion, trouble speaking or vision changes -Please call your primary care provider's office upon discharge to schedule a hospital follow up within 1 week. -For any concerning signs or symptoms please call 911 or proceed to the nearest emergency department Discharge Orders/Prescriptions Prescriptions: Continued levothyroxine 200 mcg tablet 200 mcg PO DAILY cholecalciferol (vitamin D3) 325 mcg (13,000 unit) capsule 325 mcg PO DAILY potassium chloride 20 mEq tablet extended release 20 meq PO DAILY metoprolol tartrate 100 mg tablet 100 mg PO DAILY ferrous sulfate [Feosol] 325 mg (65 mg iron) tablet 325 mg PO DAILY Eliquis 2.5 mg tablet 2.5 mg PO DAILY acetaminophen 500 mg Tablet 1,000 mg PO Q6H PRN PRN (Reason: Pain Score 1-10) Qty: 0 0RF Myrbetriq 50 mg tablet extended release 24 hr 50 mg PO QHS albuterol sulfate 90 mcg/actuation HFA aerosol inhaler 1 inh INHALATION Q4H PRN (Reason: COPD) Patient Comments: Inhale 2 puffs by mouth every 4 hours. bumetanide 2 mg tablet 2 mg PO DAILY Patient Comments: TAKE 1 TABLET BY MOUTH EVERY DAY levothyroxine 50 mcg tablet 50 mcg PO DAILY Patient Comments: TAKE 1 TABLET BY MOUTH DAILY Entresto 24-26 mg tablet 1 tab PO BID Qty: 1 0RF furosemide 40 mg tablet 40 mg PO DAILY Qty: 90 3RF diltiazem HCl 240 mg capsule,extended release 24hr 240 mg PO BID Qty: 180 3RF rosuvastatin 20 mg tablet 20 mg PO QHS Qty: 30 11RF Hold Instructions: Home Medication placed on hold at Doctor's office Changed insulin degludec 100 unit/mL (3 mL) insulin pen 30 unit SC QHS Qty: 15 0RF Discontinued glimepiride 1 MG tablet 1 mg PO DAILY meloxicam 15 mg tablet 15 mg PO DAILY Patient Comments: TAKE 1 TABLET BY MOUTH EVERY DAY Referrals / Follow Up: Roosevelt Tesfaye MD [Med Staff - Active Staff] - Edgardo Greenwood DO [Med Staff - Active Staff] - (Will be very important to follow- up with pulmonary medicine upon discharge, please call to inquire about your hospital follow up appointment) Alexy Douglas Chi, MD [Primary Care Provider] - Within 1 Week Disposition Disposition (needs filled in before D/C Order can be placed): Home, Self Care
--- NOTE | 2023-02-16 15:05 | DS.PCM_ITS ---
Providers Date of Admission: 02/15/23 Date of Discharge: 02/16/23 Primary Care Physician: Dr. Alexy Douglas MD Consultations 02/14/23 19:53 Consult: Billing And Quality Technician / Pulmonary Medicine Routine Consulting Provider: Pulmonary Medicine mario Shawnee Reason for Consult: recurrent left pleural effusion, unclear etiology EMERGENT Consult: No MD Notified: Yes Date Notified: 02/15/23 Time Notified: 06:30 Method of Notification: Text Reason For Visit: RECURRENT LEFT PLEURAL EFFUSION, A-FIB WITH RVR Diagnosis Discharge Diagnosis (1) Pleural effusion, left: Status: Acute Code(s): J90 - Pleural effusion, not elsewhere classified (2) Atrial fibrillation: Status: Acute Code(s): I48.91 - Unspecified atrial fibrillation Plan 1. Recurrent left-sided pleural effusion, acute hypoxia with history of COPD 2. Paroxysmal atrial fibrillation with RVR 3. Debility Chronic medical conditions: ? Hypertension, hyperlipidemia, chronic CHF: ? Obesity: BMI 38 on admit. ? CKD stage III unclear subtype ? Type 2 diabetes ? Hypothyroidism ? Overactive bladder ? S/p left knee replacement in 11/2022 ? Remote history of right-sided breast cancer s/p lumpectomy Medications at Discharge Home Medications cholecalciferol (vitamin D3) 325 mcg (13,000 unit) capsule 325 mcg PO DAILY supplement 06/14/21 potassium chloride 20 mEq tablet,extended release 20 meq PO DAILY supplement 06/14/21 apixaban 2.5 mg tablet (Eliquis) 2.5 mg PO DAILY blood thinner 10/09/21 acetaminophen 500 mg tablet 1,000 mg (2 x 500 mg) PO Q6H PRN PRN Pain Score 1-10 #0 tabs 10/24/21 metoprolol tartrate 100 mg tablet 100 mg PO DAILY 10/30/21 levothyroxine 200 mcg tablet 200 mcg PO DAILY thyroid 01/29/22 ferrous sulfate 325 mg (65 mg iron) tablet (Feosol) 325 mg PO DAILY 04/04/22 sacubitril 24 mg-valsartan 26 mg tablet (Entresto) 1 tab PO BID #1 TAB 04/23/22 furosemide 40 mg tablet 40 mg PO DAILY #90 tabs 08/28/22 diltiazem HCl 240 mg capsule,extended release 24 hr 240 mg PO BID heart #180 caps 07/13/23 rosuvastatin 20 mg tablet 20 mg PO QHS cholesterol #30 tabs 10/08/22 albuterol sulfate 90 mcg/actuation aerosol inhaler 1 inh inhalation Q4H PRN COPD 11/14/22 mirabegron 50 mg tablet,extended release 24 hr (Myrbetriq) 50 mg PO QHS 11/14/22 bumetanide 2 mg tablet 2 mg PO DAILY 02/14/23 levothyroxine 50 mcg tablet 50 mcg PO DAILY 02/14/23 insulin degludec 100 unit/mL (3 mL) subcutaneous pen 30 unit (0.3 mL) subcut QHS blood sugar #15 mL 02/16/23 Hospital Course Summary of Care Provided Minutes Spent on Discharge: 35 Hospital Course: Patient is an 83-year-old female with history of COPD, CKD, chronic heart christos lure with preserved ejection fraction, hypertension, diabetes melitis who presented to [facility] [place] 02/14/2023 for worsening dyspnea on exertion. Has required 2 previous thoracenteses with first 01/25 with 1.5 L of fluid removed and second 02/12 with 2 L removed and she tolerated both procedures however given worsening shortness of breath she Re-presented to the ED and was found to have reaccumulation of fluid as well as accelerated heart rate and was diagnosed with A-fib with RVR. Patient underwent thoracentesis and pulmonology was consulted, she was given IV Cardizem x1 and home medications resumed. She tolerated thoracentesis well and heart rate improved. On day of discharge 02/16 patient feeling much better and felt ready to go, discussed with aircraft engine cylinder mechanic as Gram stain and culture of pleural fluid still pending and given patient's stability it was advised that she is okay for discharge with outpatient follow-up and ultimately may get referred to CT surgery after she is optimized from a cardiac standpoint. During her hospitalization she did have 1 out of 2 blood cultures with gram-positive cocci however suspect this is a contaminant as it is thus far 1 out of 2 and patient doing well with no antibiotics. Discussed risks of going home versus benefits of staying to monitor for final cultures and patient expresses very very strong desire for discharge home. Also discussed kidney function and that she would need to follow-up very closely with PCP to assure kidney function improving. Patient verbalized understanding and also spoke with her daughter over the phone who verbalized understanding. Patient was ambulated to assess for O2 and required 1 L with ambulation. Patient discharged home in stable condition. Discharge instructions as follows: -Please follow-up with Dr. Greenwood upon discharge. Please call their office upon discharge to inquire about your hospital follow-up appointment time as it appears you have an appointment with Dr. Greenwood 05/13/2022. -Please follow-up with with your management psychologist upon discharge. Please call their office to schedule hospital follow-up appointment upon discharge. -For your kidneys and your heart and it is advised that you stop your meloxicam -Would recommend lab work (BMP) to check your kidney function in 2 to 3 days through your primary care physician's office. Please call their office upon discharge to obtain order for lab work. -Due to your glucose being well controlled on lower doses of diabetes medicines you will be discharged on 30 units of long-acting insulin at bedtime and would recommend holding her glimepiride. Please continue to monitor glucose as there requirement may go up once you are back in her home environment -Weigh yourself every day. A sudden weight gain can mean you are retaining fluid. Weigh yourself at the same time of day and in the same kind of clothes. Ideally, weigh yourself first thing in the morning after you empty your bladder, but before you eat breakfast. -Please call your physician if your weight goes up by more than 2 pounds in 1 day or 5 pounds in 1 week. This can be a sign that you are retaining more fluid than you should be. Clues to weight gain include checking your ankles for swelling, or noticing you are short of breath when you lie down -Please limit your sodium intake to less than 3 g/day. Here are tips: Limit canned, dried, packaged, and fast foods. Don't add salt to your food at the table. Season foods with herbs instead of salt when you cook. When you eat out, ask that the rn clinical trials not add any salt to your dish. Don't eat fried or greasy foods. Be careful of bottled beverages. They can contain a lot of salt -Call 911 right away if you have: -Severe shortness of breath, such that you can't catch your breath even while resting -Severe chest pain that does not resolve with rest or nitroglycerin -Weingarten, foamy mucus with cough and shortness of breath -An ongoing rapid or irregular heartbeat -Passing out or fainting -Stroke symptoms such as sudden numbness or weakness on one side of your face, arm, or leg or sudden confusion, trouble speaking or vision changes -Please call your primary care provider's office upon discharge to schedule a hospital follow up within 1 week. -For any concerning signs or symptoms please call 911 or proceed to the nearest emergency department Physical Exam Narrative General: Alert, oriented, no apparent distress HEENT: Atraumatic, normocephalic Eyes: Anicteric, normal conjunctiva, extraocular movements grossly intact Neck: Supple Respiratory: Improved aeration, slightly dull at left lung base, normal respiratory effort Cardiovascular: Tachycardia improving GI: Soft, nontender, nondistended Extremities: No significant peripheral edema Musculoskeletal: Moving all extremities Neuro: No overt focal neurological deficits Skin: No rashes appreciated Psych: Cooperative Weight / BMI Weight Weight: 114.4 kg Body Mass Index (BMI) 38.2 ABG / Lab / Microbiology Data 02/16/23 06:14 02/16/23 06:14 Laboratory: Laboratory Results - last 24 hr 02/15/23 16:20: POC Glucose 166 H 02/15/23 21:33: POC Glucose 187 H 02/16/23 03:40: POC Glucose 149 H 02/16/23 06:14: WBC 9.6, RBC 3.96 L, Hgb 11.6 L, Hct 37.3, MCV 94.2, MCH 29.3, MCHC 31.1 L, RDW Std Deviation 49.0 H, RDW Coeff of Sudha 14.2, Plt Count 252, MPV 9.8, Immature Gran % (Auto) 1.500 H, Neut % (Auto) 66.8, Lymph % (Auto) 20.3, [place] % (Auto) 8.0, Eos % (Auto) 2.9, Baso % (Auto) 0.5, Absolute Neuts (auto) 6.4, Absolute Lymphs (auto) 1.95, Nucleated RBC % 0, Sodium 139, Potassium 4.0, Chloride 103, Carbon Dioxide 28.0, Anion Gap 8, BUN 42 H, Creatinine 1.73 H, Estim Creat Clear Calc 24.42, Est GFR (MDRD) Af Amer 36 L, Est GFR (MDRD) Non-Af 30 L, BUN/Creatinine Ratio 24.3 H, Glucose 158 H, Calcium 8.4 L, Magnesium 2.2 02/16/23 06:33: POC Glucose 145 H 02/16/23 10:39: POC Glucose 189 H Microbiology: Microbiology 02/14/23 16:32 Urine, Catheterized Urine Culture - Preliminary Culture exhibits no growth. 02/16/23 16:41 Blood Culture (Wb) - Anticubital Right Bacteria Detection (PCR) - Final 02/14/23 16:20 Blood Culture (Wb) - Anticubital Right Blood Culture - Preliminary 02/14/23 16:20 Nasal Secretion SARS-CoV-2 & FLU Antigen (Rapid) - Final Radiography Diagnostic Testing: Radiology Impression Echocardiogram 02/15/23 09:30 Interpretation Summary Normal LV size. Mild concentric left ventricular hypertrophy. The left ventricular ejection fraction is 45 %. Mild global left ventricular systolic dysfunction. Pulmonary artery systolic pressure is 34 mmHg. Contrast injection was performed. Ordering Physician: Christina Menard Referring Physician: Alexy Douglas Chi Performed By: Tiera Woodard RDCS, RVT D/C Instructions Discharge Diet: - (-DASH diet, 3000 mg sodium restriction, 2 L fluid restriction) Meaningful Use Info Meaningful Use Diagnoses (Choose all that apply): None applicable Discharge Plan Admission Admit Date/Time: 02/15/23 16:16 Primary Reason for Your Visit: Pleural effusion Attending Provider: Christina Menard Primary Care Provider: Alexy Douglas Chi Consulting Providers: Amaury Pena; Bradley Morel; Edgardo Greenwood; Tobin Medel; Ricky Clayton; Bessy Galan COILED TUBING OPERATOR Instructions Patient Instructions: ED Pleural Effusion Additional Instructions / Restrictions: DISCHARGE INSTRUCTIONS PLEASE READ *Please take this with you to your next doctors appointment* -Please follow-up with Dr. Greenwood upon discharge. Please call their office upon discharge to inquire about your hospital follow-up appointment time as it appears you have an appointment with Dr. Greenwood 05/13/2022. -Please follow-up with with your management psychologist upon discharge. Please call their office to schedule hospital follow-up appointment upon discharge. -For your kidneys and your heart and it is advised that you stop your meloxicam -Would recommend lab work (BMP) to check your kidney function in 2 to 3 days through your primary care physician's office. Please call their office upon discharge to obtain order for lab work. -Due to your glucose being well controlled on lower doses of diabetes medicines you will be discharged on 30 units of long-acting insulin at bedtime and would recommend holding her glimepiride. Please continue to monitor glucose as there requirement may go up once you are back in her home environment -Weigh yourself every day. A sudden weight gain can mean you are retaining fluid. Weigh yourself at the same time of day and in the same kind of clothes. Ideally, weigh yourself first thing in the morning after you empty your bladder, but before you eat breakfast. -Please call your physician if your weight goes up by more than 2 pounds in 1 day or 5 pounds in 1 week. This can be a sign that you are retaining more fluid than you should be. Clues to weight gain include checking your ankles for swelling, or noticing you are short of breath when you lie down -Please limit your sodium intake to less than 3 g/day. Here are tips: Limit canned, dried, packaged, and fast foods. Don't add salt to your food at the table. Season foods with herbs instead of salt when you cook. When you eat out, ask that the rn clinical trials not add any salt to your dish. Don't eat fried or greasy foods. Be careful of bottled beverages. They can contain a lot of salt -Call 911 right away if you have: -Severe shortness of breath, such that you can't catch your breath even while resting -Severe chest pain that does not resolve with rest or nitroglycerin -Weingarten, foamy mucus with cough and shortness of breath -An ongoing rapid or irregular heartbeat -Passing out or fainting -Stroke symptoms such as sudden numbness or weakness on one side of your face, arm, or leg or sudden confusion, trouble speaking or vision changes -Please call your primary care provider's office upon discharge to schedule a hospital follow up within 1 week. -For any concerning signs or symptoms please call 911 or proceed to the nearest emergency department Discharge Orders/Prescriptions Prescriptions: Continued levothyroxine 200 mcg tablet 200 mcg PO DAILY cholecalciferol (vitamin D3) 325 mcg (13,000 unit) capsule 325 mcg PO DAILY potassium chloride 20 mEq tablet extended release 20 meq PO DAILY metoprolol tartrate 100 mg tablet 100 mg PO DAILY ferrous sulfate [Feosol] 325 mg (65 mg iron) tablet 325 mg PO DAILY Eliquis 2.5 mg tablet 2.5 mg PO DAILY acetaminophen 500 mg Tablet 1,000 mg PO Q6H PRN PRN (Reason: Pain Score 1-10) Qty: 0 0RF Myrbetriq 50 mg tablet extended release 24 hr 50 mg PO QHS albuterol sulfate 90 mcg/actuation HFA aerosol inhaler 1 inh INHALATION Q4H PRN (Reason: COPD) Patient Comments: Inhale 2 puffs by mouth every 4 hours. bumetanide 2 mg tablet 2 mg PO DAILY Patient Comments: TAKE 1 TABLET BY MOUTH EVERY DAY levothyroxine 50 mcg tablet 50 mcg PO DAILY Patient Comments: TAKE 1 TABLET BY MOUTH DAILY Entresto 24-26 mg tablet 1 tab PO BID Qty: 1 0RF furosemide 40 mg tablet 40 mg PO DAILY Qty: 90 3RF diltiazem HCl 240 mg capsule,extended release 24hr 240 mg PO BID Qty: 180 3RF rosuvastatin 20 mg tablet 20 mg PO QHS Qty: 30 11RF Hold Instructions: Home Medication placed on hold at Doctor's office Changed insulin degludec 100 unit/mL (3 mL) insulin pen 30 unit SC QHS Qty: 15 0RF Discontinued glimepiride 1 MG tablet 1 mg PO DAILY meloxicam 15 mg tablet 15 mg PO DAILY Patient Comments: TAKE 1 TABLET BY MOUTH EVERY DAY Referrals / Follow Up: Roosevelt Tesfaye MD [Med Staff - Active Staff] - Edgardo Greenwood DO [Med Staff - Active Staff] - (Will be very important to follow- up with pulmonary medicine upon discharge, please call to inquire about your hospital follow up appointment) Alexy Douglas Chi, MD [Primary Care Provider] - Within 1 Week Disposition Disposition (needs filled in before D/C Order can be placed): Home, Self Care Charges/Coding Visit Charges Inpatient E&M: 97355 Disch Hosp >30min
[2023-02-18 13:26] LABS: Pathologist Comment/Body Fluid Reviewed
[2023-02-18 14:08] LABS: ANTINUCLEAR ANTIBODIES DIRECT Negative (Negative)
[2023-02-18 15:07] LABS: CCP IgG Antibodies 4 units (0-19); Cytoplasmic Ab (C-ANCA) <1:20 titer (Neg:<1:20); Perinuclear Ab (P-ANCA) 1:20 titer (Neg:<1:20)
== END 2023-02-16 16:55 | disposition home or self-care (01) | DRG 292 ==
LOC: ED 18:01 → PCU 18:19
PROVIDERS: Internal Medicine Critical Care Medicine; Admitting Provider Hospitalist; Emergency Provider Emergency Medicine; PCP Family Medicine Geriatric Medicine; Visit Provider Internal Medicine
DX: I13.0 Hypertensive heart and chronic kidney disease with heart failure and stage 1 through stage 4 chronic kidney disease, or unspecified chronic kidney disease (principal); I50.32 Chronic diastolic (congestive) heart failure; J91.8 Pleural effusion in other conditions classified elsewhere; E11.22 Type 2 diabetes mellitus with diabetic chronic kidney disease; N18.30 Chronic kidney disease, stage 3 unspecified; J44.9 Chronic obstructive pulmonary disease, unspecified; I48.0 Paroxysmal atrial fibrillation; Z79.4 Long term (current) use of insulin; E03.9 Hypothyroidism, unspecified; E78.5 Hyperlipidemia, unspecified; E66.9 Obesity, unspecified; Z79.01 Long term (current) use of anticoagulants; Z80.0 Family history of malignant neoplasm of digestive organs; Z79.84 Long term (current) use of oral hypoglycemic drugs; R09.02 Hypoxemia; Z68.38 Body mass index [BMI] 38.0-38.9, adult; Z87.891 Personal history of nicotine dependence; Z85.3 Personal history of malignant neoplasm of breast; Z96.652 Presence of left artificial knee joint
CPT/HCPCS: 32555; 36415; 71045; 71046; 71250; 74176; 80048; 80053; 81001; 82945; 82962; 83036; 83605; 83615; 83735; 83880; 84156; 84157; 84443; 84484; 85025; 85027; 85610; 85730; 86038; 86200; 86225; 86235; 86256; 86431; 87040; 87070; 87075; 87086; 87149; 87205; 87428; 88108; 88305; 88313; 88341; 88342; 89050; 93005; 93306; 94668; 99285; Q9957; A4216; C8929

== ENCOUNTER → 2023-02-19 | Outpatient (CLI) | payer MEDICARE, OTHER, SELFPAY ==
[2023-02-19 17:36] LABS: Absolute Lymphocyte Count 2.15 X10^3/uL (0.83-4.51); Basophil# 0.07 X10^3/uL; Basophil% 0.7 % (0-1); Eosinophil# 0.18 X10^3/uL; Eosinophils% 1.7 % (0-5); Hematocrit 40.2 % (37-47); Hemoglobin 12.6 g/dL (12.0-15.0); Lymphocyte # 2.15 X10^3/ul (0.83-4.51); Lymphocyte % 20.3 % (19-41); Mean Corp Hgb Conc 31.3 g/dL (32-36); Mean Corpuscular Hgb 29.4 pg (27.0-32.0); Mean Corpuscular Volume 93.9 fL (81-99); Mean Platelet Vol. 10.5 fl (6.2-12.0); Monocyte# 0.75 X10^3/uL; Monocyte% 7.1 % (0-10); NRBC Flagged by Analyzer 0 % (0-5); Neutrophil # 7.03 X10^3/uL (2.7-7.7); Neutrophil % 66.5 % (47-70); Platelet Count 322 K/mm3 (150-450); RBC Distribution Width CV 14.2 % (11.6-14.6); RBC Distribution Width SD 48.5 fl (35.1-43.9); Red Blood Count 4.28 M/mm3 (4.2-5.4); White Blood Count 10.6 K/mm3 (4.4-11.0)
[2023-02-19 17:38] LABS: ALB/GLOB Ratio 0.6 RATIO (0.9-2.4); AST(SGOT) 10 U/L (15-37); Alanine Aminotransfer ALT/SGPT 20 U/L (13-56); Albumin, Serum 2.4 g/dL (3.2-5.0); Alkaline Phosphatase 73 U/L (45-117); Anion Gap 3 (5-15); BUN 36 mg/dL (7-18); BUN/Creat Ratio 21.4 RATIO (10-20); Calcium,Total 8.5 mg/dL (8.5-10.1); Chloride 104 mmol/L (98-107); Creatinine, Serum 1.68 mg/dL (0.55-1.02); EST Glomerular Filtration Rate 31 mL/min (>60); Est Glom Filt Rate - Afr Amer 37 mL/min (>60); Globulin 3.7 g/dL (2.2-4.2); Glucose 227 mg/dL (74-106); Potassium 4.2 mmol/L (3.5-5.1); Protein, Total 6.1 g/dL (6.4-8.2); Sodium Level 139 mmol/L (136-145)
== END | disposition home or self-care (01) ==
LOC: POLAB3 16:26
PROVIDERS: PCP Family Medicine Geriatric Medicine; Visit Provider Internal Medicine Nephrology
DX: N18.32 Chronic kidney disease, stage 3b (principal)
CPT/HCPCS: 36415; 80053; 84100; 85025

== ENCOUNTER → 2023-02-20 | Outpatient (CLI) | payer MEDICARE, OTHER, SELFPAY ==
--- NOTE | 2023-02-20 11:02 | RAD_ITS ---
STUDY: X-RAY CHEST REASON FOR EXAM: Female, 83 years old. CONGESTION TECHNIQUE: PA and lateral views of the chest. COMPARISON: Comparison is made with prior study dated November 16, 2022. FINDINGS: Surgical clips are seen in the right axilla. Small left pleural effusion with left basilar atelectasis. Normal size heart. Normal mediastinum and binh. Normal visualized pulmonary arteries. Normal visualized aortic arch and descending thoracic aorta. There are diffuse degenerative changes of the visualized thoracic spine. Normal visualized ribs, clavicles, and shoulders. There is no demonstrated abnormality of the visualized soft tissue structures of the upper abdomen. RAD/Chest PA and Lateral IMPRESSION: Small left pleural effusion and left basilar atelectasis. Electronically Signed: Huey Gomez MD at 12:09 EST ,
== END | disposition home or self-care (01) ==
PROVIDERS: PCP Family Medicine Geriatric Medicine; Referring Provider Family Medicine Geriatric Medicine; Visit Provider Family Medicine Geriatric Medicine
DX: J98.8 Other specified respiratory disorders (principal); R68.83 Chills (without fever)
CPT/HCPCS: 71046; 87635; 87804; 87807; C9803

== ENCOUNTER → 2023-03-05 | Outpatient (CLI) | payer MEDICARE, OTHER, SELFPAY ==
--- NOTE | 2023-03-05 08:30 | PET_ITS ---
EXAMINATION: FDG PET/CT ? INDICATIONS: 83-year-old female with a history of pulmonary nodularity. ? COMPARISON EXAMINATION: CT of the chest report 02/14/2023 ? TECHNIQUE: Following the intravenous administration of 14.6 mCi of F-18 deoxyglucose via the right antecubital fossa, multiplanar image acquisitions of the head, neck, chest, abdomen and pelvis to the level of the midthigh, obtained at one-hour post radiopharmaceutical administration contemporaneously interpreted with the current CT of the chest, abdomen and pelvis dated 03/05/2023 via coregistration reveal: SERUM GLUCOSE LEVEL:? 199 mg/dL? HEIGHT:?? 68 inches WEIGHT:?? 255 pounds ? FINDINGS: ? HEAD/NECK:? There is no evidence of abnormal increased glucose metabolism in the pharyngeal mucosal space, parapharyngeal space, oropharynx, bilateral-lateral and anterior neck, hypopharynx and distribution of the larynx. ? The visualized portion of the cerebral cortical-subcortical structures demonstrate symmetric and preserved glucose metabolism. ? CHEST:? There is no quantitative scintigraphic evidence of abnormal increased glucose metabolism within the context of the bilateral hemithorax pulmonary parenchyma, right and left hemithorax at the pleural interface, mediastinal structures, and left-right thoracic perihilum. The left ventricular myocardium visualization is consistent with the [place]. ? CT of the chest demonstrates the following anatomic characteristics: A left hemithorax pleural effusion demonstrates no evidence of quantitatively significant increased FDG uptake. Atherosclerotic calcification is defined in the thoracic aorta without evidence of dilatation, aneurysm formation. Coronary artery calcification is observed. There are no parenchymal densities-nodules defined in the right and left hemithorax with quantitatively significant increased FDG? uptake. ? ABDOMEN/PELVIS:? Normal physiologic distribution of the radiopharmaceutical is identified in the hepatic and splenic parenchyma, both renal units, urinary bladder, and visualized intestinal tract. ? CT of the abdomen and pelvis is remarkable for the following: Atherosclerotic calcification is defined in the abdominal aorta without evidence of dilatation, aneurysm formation. Pelvic arterial calcification is observed. Calcification is noted within the subcutaneous fat of the right posterior hemipelvis. Right and left inguinal soft tissue densities with fatty hilus are ametabolic. The uterus appears surgically absent. Calcification is noted in the region of the pancreatic body. ? SKELETAL:? There is no evidence of quantitatively significant enhanced glucose metabolism on meticulous inspection of the appendicular and axial skeletal structures. ? Degenerative changes defined in the thoracic and lumbar spine demonstrate no evidence of increased glucose metabolism. There are no sclerotic, mixed sclerotic-lytic, or primarily lytic changes defined in the axial skeletal structures with evidence of increased FDG uptake. ? PET/PET/CT Tumor Base -Thigh Init IMPRESSION: 1. NEGATIVE EXAMINATION. There is no definitive quantitative scintigraphic evidence of viable neoplasm. 2. Special attention paid to the bilateral hemithorax pulmonary parenchyma demonstrates no scintigraphic abnormality. 3. Metabolic, morphologic stability may be ensured in the bilateral hemithorax with repeat FDG-PET CT imaging in 3-6 months, if clinically indicated. ? Electronic Signature Miguel Sigala D.O. Accurate Quantification of SUVs for this report are calculated using the exclusive [employer]. (U.S. Patent No. [phone] [phone] [phone] patent [phone]). Standardization and correction of the FDG SUV metric via [employer] technology allow for vendor non-specific objective quantitative examination comparison and optimization of the sensitivity and specificity of the FDG PET-CT examination. . https://www.mdpi.com/0263-4008/29/11/1579 [email or web address]://eTelemetry Electronically Signed: Miguel Sigala DO at 12:25 EST ,
== END | disposition home or self-care (01) ==
LOC: ONC 08:06
PROVIDERS: PCP Family Medicine Geriatric Medicine; Referring Provider Family Medicine Geriatric Medicine; Visit Provider Family Medicine Geriatric Medicine
DX: R91.1 Solitary pulmonary nodule (principal)
CPT/HCPCS: 78815; A9552

== ENCOUNTER 2023-03-06 07:55 | Outpatient (CLI) | payer MEDICARE, OTHER, SELFPAY ==
--- NOTE | 2023-03-06 | FLU_PTH ---
PATIENT: TONJA SÁNCHEZ LOC: [facility]#:[id number] AGE/SX: 83/F ROOM: RE03/06/[address]: Dr. Alexy Douglas MD : 1940 BED: DIS: 03/06/2023 SPEC #: [id number] RECD: 03/06/23 13:16 STATUS: RICHARD KAMRON #: [id number] HAMLET: 03/06/23 00:[address]: Alexy Douglas Chi DEPT: CYTOLOGY RECD BY: Mina Reardon Tissues: THORACIC FLUID Procedures: Special Stain Group II Surgery Specimen Level IV Cytospin Fluid HEADER OPERATION: Ultrasound-guided left thoracentesis PRE-OP DIAGNOSIS: Left pleural effusion TISSUE SUBMITTED: Thoracentesis fluid for cytology DIAGNOSIS CYTOLOGY Thoracentesis fluid for cytology (cytospin and cell block): Polymorphous lymphocytes are present. No evidence of malignancy. See comment. AM:lonnie 03/07/2023 COMMENT Immunohistochemistry ([id number]) supports the above diagnosis. CYTOLOGY STUDY Slides are reviewed. CYTOLOGY GROSS Received is 80 ml of yellow cloudy fluid labeled with the patient's name and and designated per the requisition as thoracentesis. Submitted for cytology preparation including cell block. / lonnie 03/06/2023 TC:1 CPT: 32674, 58877
--- NOTE | 2023-03-06 | IMM_PTH ---
PATIENT: TONJA SÁNCHEZ LOC: [facility]#:[id number] AGE/SX: 83/F ROOM: RE03/06/[address]: Dr. Alexy Douglas MD : 1940 BED: DIS: 03/06/2023 SPEC #: [id number] RECD: 03/07/23 14:15 STATUS: RICHARD REQ #: [id number] HAMLET: 03/06/23 00:[address]: Alexy Douglas Chi DEPT: IMMUNOHISTOCHEMISTRY RECD BY: Tsering Groves Tissues: Pleural fluid, NOS Procedures: BCL-2 (add) Sanchez Ret (add) CD10 (add) CD20 (add) CD3 (add) CD45 (add) CD5 (add) CD79A (add) CK20 (add) CK5-6 (add) CK7 (add) Vimentin (add) Pankeratin (initial) PHYSICIAN & INSTITUTION [place] [phone] SPECIMEN INFORMATION: Tissue Source: Thoracentesis fluid Clinical Info: Left pleural effusion Specimen Number: [id number] CPT code: 92604, 57625 x12 METHODOLOGY: Deparaffinized sections of prefer/formalin-fixed tissue or PAP/DQ stained slides are incubated with monoclonal/polyclonal antibodies/oligonucleotide probes. Localization is made via biotin free immunoperoxidase method. Appropriate controls are performed and reacted as expected. Results on target cell population are indicated in the following table: RESULTS: ANTIBODY / CLONE RESULT AE1-3 (AE1/AE3/PCK26) negative CK7 (OV-TL12/30) negative CK20 (KS20.8) negative CD3 (PS1) positive CD5 (SP10) positive CD20 (L26) negative CD45 (RP2/18) positive CD79a (11E3) positive CD10 (56C6) negative BCL-2 (bcl-2/100/D5) positive Vimentin (V9) positive CALRET (polyclonal) negative CK5-6 (D5 & 1684) negative These tests were developed and their performance characteristics determined by [facility]. They may not have been cleared or approved by the U.S. Food and Drug Administration. The FDA has determined that such clearance or approval is not necessary. The above immunohistochemical/dualISH markers are ordered and reviewed by the Pathologist. INTERPRETATION: Thoracentesis fluid (cell block): Polytypic lymphocyte population with predominance of small T-cell lymphocytes. AM:lonnie 03/08/2023
[2023-03-06 08:10] VITALS: BP 125/62; PULSE 108; RESP 18; TEMP 36.4; O2SAT 97
[2023-03-06 08:17] VITALS: BP 110/60; PULSE 79; RESP 18; O2SAT 97
[2023-03-06] MEDS: Lidocaine 2% (20 ml mdv) 20 ML Vial INFILT (08:18)
[2023-03-06 08:25] VITALS: BP 117/40; PULSE 86; RESP 18; O2SAT 95
--- NOTE | 2023-03-06 08:25 | RAD_ITS ---
STUDY: X-RAY CHEST REASON FOR EXAM: Female, 83 years old. Immediately post thoracentesis TECHNIQUE: AP inspiration and expiration views. COMPARISON: Comparison is made with prior study dated February 20, 2023. FINDINGS: The patient is status post left thoracentesis. No evidence of pneumothorax RAD/Chest Insp/Exp 2 View IMPRESSION: No evidence of pneumothorax on the post left thoracentesis images. Electronically Signed: Huey Gomez MD at 14:03 EST ,
[2023-03-06 08:28] VITALS: BP 89/53; PULSE 84; RESP 18; O2SAT 95
[2023-03-06 08:30] VITALS: BP 79/49; PULSE 98; RESP 18; O2SAT 93
--- NOTE | 2023-03-06 08:30 | PCM.OP.PRO ---
Procedure Report Date of Procedure: 03/06/23 Assessment & Plan Assessment/Plan (1) Pleural effusion, left: PLAN: PROCEDURE: Ultrasound Guided Thoracentesis ORDERING PROVIDER: Dr. Douglas INDICATION: Female, 83 years old. Recurrent left pleural effusion. PROVIDER: ANAMIKA Bravo PROCEDURE: The risks, benefits, and alternatives to the procedure were explained to the patient. The specific risks of bleeding, infection, and pneumothorax requiring chest tube insertion were discussed and accepted. Written informed consent was obtained. The patient was placed in the sitting, upright position. Ultrasonographic evaluation of the bilateral lower pleural spaces was carried out. An adequate pocket was identified in the left lower pleural space.The overlying skin was prepped and draped in sterile fashion. 2% lidocaine was administered subcutaneously for local anesthesia. Under ultrasound guidance, a 5-[place] thoracentesis needle/catheter system was advanced into the left posterior lower pleural fluid collection. 1390 ml of clear yellow colored fluid was drained. The catheter was removed, and a sterile dressing was applied. The patient tolerated the procedure well. A chest x-ray was ordered. IMPRESSION: Successful ultrasound-guided thoracentesis of left pleural effusion. Procedures Radiology Radiology US Procedures: [id number] Thoracentesis
[2023-03-06 08:35] VITALS: BP 99/61; PULSE 91; RESP 18; O2SAT 94
[2023-03-06 11:21] LABS: Cytology, Body Fluid / CSF SEE PATHOLOGY REPORT
[2023-03-06 12:56] LABS: Glucose, Body Fluid 204 mg/dL (40-70); LDH,Body Fluid 104 Units/L (Not Establ.); Protein, Body Fluid 3.1 g/dL (Not Establ.)
[2023-03-07 10:04] LABS: Body Fluid Mononuclear WBC # 1.114 10^3/uL; Body Fluid Mononuclear WBC % 92.3 %; Body Fluid Polynuclear WBC # 0.093 10^3/uL; Body Fluid Polynuclear WBC % 7.7 %; Body Fluid Total Cells Counted 1.228 10^3/ul; White Blood Count/Body Fluid 1.207 10^3/uL
[2023-03-07 11:59] LABS: Appearance/Body Fluid CLEAR; Auto B Fluid Analyzer BKGD Ct COUNTS W/IN LIMITS (W/IN LIMITS); Color/Body Fluid YELLOW; Lymphocytes 69 %; Macrophages 2 %; Mesothelial Cells 1 %; Monocytes 5 %; Neutrophil (Segs) 23 %; Source- Body Fluid THORACENTESIS
[2023-03-07 12:00] LABS: Body Fluid QC Type(s) BF1Q; Red Cell Count/Body Fluid 305 /mm3
[2023-03-08 13:15] LABS: Pathologist Comment/Body Fluid Reviewed
[2023-03-13 18:07] LABS: pH, Body Fluid 11254 7.3 (Not Estab.)
== END 2023-03-06 23:59 | disposition home or self-care (01) ==
LOC: US 07:56
PROVIDERS: PCP Family Medicine Geriatric Medicine; Referring Provider Family Medicine Geriatric Medicine; Visit Provider Family Medicine Geriatric Medicine
DX: J90 Pleural effusion, not elsewhere classified (principal)
CPT/HCPCS: 32555; 71046; 82945; 83615; 83986; 84157; 87070; 87075; 87205; 88108; 88305; 88313; 88341; 88342; 89050

== ENCOUNTER → 2023-03-14 | Outpatient (CLI) | payer MEDICARE, OTHER, SELFPAY ==
--- NOTE | 2023-03-14 08:09 | NM_ITS ---
CLINICAL: 83-year-old female with history of multiple myeloma. WHOLE BODY 99m Tc MDP RADIONUCLIDE BONE SCINTIGRAPHY COMPARISON: FDG PET CT study report 03/05/2023 FINDINGS: Following the intravenous administration of 26.8 mCi of 99m Tc MDP, whole body bone images reveal: 1. Increased radiopharmaceutical concentration is defined in the visualized right elbow, the sternoclavicular and glenohumeral compartments of both shoulders, the wrist articulations bilaterally, the lateral tibial compartment of the left knee, the right-left midfoot, the fifth lumbar vertebra and sacrum. 2. The remaining skeletal structures are scintigraphically unremarkable with normal-appearing renal images and urinary bladder activity identified. NM/Bone Scan Whole Body IMPRESSION: 1. The increase in radiotracer distribution defined in the right elbow, bilateral shoulders, the wrist articulations, left knee, midfoot bilaterally, the lumbar spine and sacrum is most consistent with degenerative changes. Plain film radiography correlation may be of benefit in the region of the left knee articulation. 2. Secondary to the lytic nature of multiple myeloma, conventional bone scintigraphy is generally false-negative in the assessment of active disease. The patient''s FDG PET CT study dated 03/05/2023, demonstrates no evidence of enhanced FDG uptake associated with lytic bone involvement. Electronically Signed: Miguel Sigala DO at 10:12 EST ,
--- OUTSIDE RECORDS SUMMARY | 2023-03-14 08:11 | XMS RPT_ITS | CCD ---
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 Name Role Phone Aj Baptiste Unavailable Unavailable Vijaya Arshad Unavailable Unavailable Pat Pa Unavailable Unavailable Roof PREVENTIVE MEDICINE PHYSICIAN, Chad Aden Unavailable Vijaya Arshad Unavailable Unavailable FLETCHER Rehman, Natalie Carvajal Unavailable Unavailabl Rina Vogt Unavailable Unavailable Rina Patel Unavailable Unavailable Aj Baptiste Unavailable Unavailable Aj Baptiste Unavailable Unavailable Pat Pa Unavailable Unavailable Mariam Amaral RN Unavailable Unavailable Vijaya Arshad Unavailable Unavailable Pat Pa Unavailable Unavailable Allergies Allergy Classification Reported Allergen(s) Allergy Type Date of Onset Reaction(s) Facility (14 sources) amLODIPine drug allergy 6 constipation [facility] Work Phone: [phone] (14 sources) ascorbic acid / beta carotene / cuprous oxide / vitamin E / zinc oxide drug allergy 6 rash [facility] Work Phone: [phone] (14 sources) doxazosin drug allergy 6 lightheadedness [facility] Work Phone: [phone] (14 sources) fish oil drug allergy 6 rash [facility] Work Phone: [phone] (20 sources) Sulfonamides (Antibiotic) drug allergy 9 Unknown, had a reaction when she was 5 y/o [facility] Work Phone: [phone] (14 sources) OXYBUT drug allergy 6 rash [facility] Work Phone: Medications Completed/Discontinued Medications Medication Drug Class(es) Dates Sig (Normalized) Sig (Original) 200 actuat albuterol 0.09 mg/actuat metered dose inhaler (9 sources) beta2-Adrenergic Agonist Start: 11-16-2016 PROAIR HFA 108 (90 Base) MCG/ACT AERS Two inh every 4 hrs as needed ALBUTEROL SULFATE [id number] Pat Pa Problems Active Problems Problem Classification Problem Date Documented Da te Episodic/Chronic Cardiac dysrhythmias (20 sources) Atrial fibrillation; Translations: [Atrial flutter] Onset: 03-12-2013 03-12-2013 Chronic Chronic obstructive pulmonary disease and bronchiectasis (2 sources) Chronic obstructive lung disease; Translations: [Chronic obstructive pulmonary disease, unspecified] Onset: 01-16-2017 01-16-2017 Chronic Diabetes mellitus without complication (14 sources) Diabetes mellitus; Translations: [Type 2 diabetes mellitus without complications] Onset: 03-16-2013 03-16-2013 Chronic Disorders of lipid metabolism (14 sources) Hyperlipidemia; Translations: [Hyperlipidemia, unspecified] Onset: 03-16-2013 03-16-2013 Chronic Essential hypertension (20 sources) Hypertensive disorder; Translations: [Essential (primary) hypertension] Onset: 03-16-2013 03-31-2015 Chronic Other nutritional; endocrine; and metabolic disorders (20 sources) Body mass index (BMI) 39.0-39.9, adult; Translations: [Body mass index (BMI) 37.0-37.9, adult] Onset: 05-05-2013 Resolved: 03-30-2015 03-30-2015 Chronic Other nutritional; endocrine; and metabolic disorders (18 sources) Body mass index (BMI) 37.0-37.9, adult; Translations: [Body mass index (BMI) 40.0-44.9, adult] Onset: 05-05-2013 Resolved: 05-18-2014 05-18-2014 Chronic Pulmonary heart disease (8 sources) Pulmonary hypertension; Translations: [Other secondary pulmonary hypertension] Onset: 12-07-2016 12-07-2016 Chronic Spondylosis; intervertebral disc disorders; other back problems (14 sources) Other and unspecified disc disorder, lumbar region; Translations: [Other and unspecified disc disorder of lumbar region] Onset: 07-23-2014 07-26-2014 Chronic Past or Other Problems Problem Classification Problem Date Documented Date Episodic/Chronic Bacterial infection (14 sources) Methicillin resistant Staphylococcus aureus infection; Translations: [Methicillin resistant Staphylococcus aureus infection, unspecified site] Onset: 05-26-2012 05-26-2012 Episodic Malaise and fatigue (14 sources) Fatigue; Translations: [Other fatigue] Onset: 03-16-2013 03-16-2013 Episodic Mycoses (20 sources) Candidal vulvovaginitis; Translations: [Candidiasis of skin] Onset: 05-26-2012 Resolved: 05-26-2012 05-26-2012 Episodic Nonspecific chest pain (14 sources) Chest discomfort; Translations: [Other chest pain] Onset: 05-18-2014 05-18-2014 Episodic Other and unspecified benign neoplasm (14 sources) Other benign neoplasm of skin, unspecified; Translations: [Other benign neoplasm of skin, unspecified] Onset: 03-29-2009 03-29-2009 Episodic Other circulatory disease (14 sources) Elevated blood-pressure reading, without diagnosis of hypertension; Translations: [Elevated blood-pressure reading, without diagnosis of hypertension] Onset: 03-30-2015 03-31-2015 Episodic Other injuries and conditions due to external causes (6 sources) Hypoxia; Translations: [Hypoxemia] Onset: 12-07-2016 12-07-2016 Episodic Other lower respiratory disease (16 sources) Dyspnea; Translations: [Hypoxia] Onset: 03-16-2013 03-16-2013 Episodic Other non-traumatic joint disorders (14 sources) Hip pain; Translations: [Pain in right hip] Onset: 07-23-2014 07-23-2014 Episodic Residual codes; unclassified (6 sources) FH: Hypertension; Translations: [Family history of ischemic heart disease and other diseases of the circulatory system] 08-13-2013 Episodic Residual codes; unclassified (4 sources) Hypersomnia; Translations: [Hypersomnia, unspecified] Onset: 12-07-2016 12-07-2016 Episodic Spondylosis; intervertebral disc disorders; other back problems (14 sources) Low back pain; Translations: [Low back pain] Onset: 07-23-2014 07-26-2014 Episodic Unclassified (20 sources) Edema; Translations: [FH: Hypertension] Onset: 08-11-2013 08-11-2013 Episodic Unclassified (16 sources) Preoperative cardiovascular examination ; Translations: [Encounter for preprocedural cardiovascular examination] Onset: 10-04-2015 Resolved: 09-26-2016 10-04-2015 Urinary tract infections (20 sources) Urinary tract infectious disease; Translations: [Cystitis] Onset: 05-26-2012 02-09-2015 Episodic Results Test Name Value Interpretation Reference Range Facil ity Vital Signs Date Time Vital Sign Value Performing Clinician Rogelio fuller 01-16-2017 06:47-0400 BMI (Body Mass Index) 40.74 kg/m2 Rina Patel [facility] Work Phone: 01-16-2017 06:47-0400 Body Temperature 98.8 [degF] Rina aPtel [facility] Work Phone: 01-16-2017 06:47-0400 BP Diastolic 70 mm[Hg] Rina Patel [facility] Work Phone: 01-16-2017 06:47-0400 BP Systolic 124 mm[Hg] Rina Patel [facility] Work Phone: 01-16-2017 06:47-0400 Height 172.09 cm Rina Patel [facility] Work Phone: 01-16-2017 06:47-0400 Pulse (Heart Rate) 57 /min Rina Patel [facility] Work Phone: 01-16-2017 06:47-0400 Respiratory Rate 18 /min Rina Patel [facility] Work Phone: 01-16-2017 06:47-0400 Weight 120.66 kg Rina Patel [facility] Work Phone: 12-17-2016 10:51-0400 Heart rate 47 /min [facility] Work Phone: 12-17-2016 08:39-0400 BMI (Body Mass Index) 41.51 kg/m2 [facility] Work Phone: 12-17-2016 08:39-0400 BP Diastolic 62 mm[Hg] [facility] Work Phone: 12-17-2016 08:39-0400 BP Systolic 140 mm[Hg] [facility] Work Phone: 12-17-2016 08:39-0400 Height 172.09 cm [facility] Work Phone: 12-17-2016 08:39-0400 Pulse (Heart Rate) 47 /min [facility] Work Phone: 12-17-2016 08:39-0400 Respiratory Rate 20 /min [facility] Work Phone: 12-17-2016 08:39-0400 Weight 122.93 kg [facility] Work Phone: 12-07-2016 11:13-0400 BMI (Body Mass Index) 42.73 kg/m2 [facility] Work Phone: 12-07-2016 11:13-0400 Body Temperature 98.8 [degF] [facility] Work Phone: 12-07-2016 11:13-0400 BP Diastolic 69 mm[Hg] Pat Thierno [facility] Work Phone: 12-07-2016 11:13-0400 BP Systolic 173 mm[Hg] Pat Thierno [facility] Work Phone: 12-07-2016 11:13-0400 Height 172.09 cm [facility] Work Phone: 12-07-2016 11:13-0400 Pulse (Heart Rate) 51 /min [facility] Work Phone: 12-07-2016 11:13-0400 Respiratory Rate 18 /min [facility] Work Phone: 12-07-2016 11:13-0400 Weight 126.55 kg Pat Pa [facility] Work Phone: 10-18-2016 15:41-0400 BMI (Body Mass Index) 41.32 kg/m2 Vijaya [facility] Work Phone: 10-18-2016 15:41-0400 BP Diastolic 60 mm[Hg] Vijaya Arshad [facility] Work Phone: 10-18-2016 15:41-0400 BP Systolic 110 mm[Hg] Vijaya [facility] Work Phone: 10-18-2016 15:41-0400 Height 172.09 cm Vijaya [facility] Work Phone: 10-18-2016 15:41-0400 Pulse (Heart Rate) 64 /min Vijaya [facility] Work Phone: 10-18-2016 15:41-0400 Respiratory Rate 20 /min Vijaya [facility] Work Phone: 10-18-2016 15:41-0400 Weight 122.38 kg Vijaya [facility] Work Phone: 04-06-2016 13:35-0500 BMI (Body Mass Index) 41.41 kg/m2 Natalie Rehman RN [facility] Work Phone: 04-06-2016 13:35-0500 BP Diastolic 60 mm[Hg] [facility] Work Phone: 04-06-2016 13:35-0500 BP Systolic 180 mm[Hg] FLETCHER [facility] Work Phone: 04-06-2016 13:35-0500 BSA (Body Surface Area) 2.32 m2 FLETCHER [facility] Work Phone: 04-06-2016 13:35-0500 Pulse (Heart Rate) 72 /min [facility]LETCH[facility] Work Phone: 04-06-2016 13:35-0500 Respiratory Rate 20 /min [facility] Work Phone: 04-06-2016 13:35-0500 Weight 122.65 kg Natalie Rehman RN [facility] Work Phone: 10-04-2015 14:37-0400 Heart rate 57 /min Mariam [facility] Work Phone: 02-09-2015 13:55-0500 Body Temperature 96.4 [degF] [facility] Work Phone: 08-21-2013 14:20-0400 Height 172.09 cm FLETCHER [facility] Work Phone: 07-03-2013 11:14-0400 Heart rate 466 ms Mariam Amaral RN [facility] Work Phone: Procedures Date Procedure Procedure Detail Performing Clinician Start: 12-31-2016 End: 01-03-2017 *BMP Chad Woodard PREVENTIVE MEDICINE PHYSICIAN Work Phone: Start: 12-17-2016 End: 12-17-2016 Ecg routine ecg w/least 12 lds w/i&r Chad Woodard PREVENTIVE MEDICINE PHYSICIAN Work Phone: Start: 12-07-2016 End: 12-14-2016 *MISC - Miscellaneous Lab Test #1 Bessy Galan CNP Work Phone: Start: 12-07-2016 End: 12-14-2016 DMB Bessy Galan [employer] MILL SUPERVISOR Work Phone: Start: 12-07-2016 End: 12-14-2016 Follow Up Appt 2 months Bessy vallejo [employer] SUPERVISOR Work Phone: Start: 12-07-2016 End: 12-14-2016 Pulmonary Function Test - complete Bessy Galan [employer] SUPERVISOR Work Phone: Start: 12-07-2016 End: 12-14-2016 Pulmonary stress test/simple Bessy Galan H[employer] SUPERVISOR Work Phone: Start: 12-07-2016 End: 12-07-2016 Dietary management education, guidance, and counseling Pat Pa Start: 12-07-2016 End: 12-14-2016 *MISC - Miscellaneous Lab Test #1 Bessy Galan H[employer] M[employer] SUPERVISOR Work Phone: Start: 12-07-2016 End: 12-14-2016 DMB Bessy Galan H[employer] M[employer] SUPERVISOR Work Phone: Start: 12-07-2016 End: 12-14-2016 Follow Up Appt 2 months Bessy Mahoney Marlene genevieve H[employer] SUPERVISOR Work Phone: Start: 12-07-2016 End: 12-14-2016 Pulmonary Function Test - complete Bessy Galan [employer] SUPERVISOR Work Phone: Start: 12-07-2016 End: 12-14-2016 Pulmonary stress test/simple Bessy Galan H[employer] M[employer] SUPERVISOR Work Phone: Start: 10-18-2016 End: 10-18-2016 Follow Up Appt 6 months Wei Adamson Start: 10-18-2016 End: 10-18-2016 SEB Tesfaye MD Start: 10-18-2016 End: 10-18-2016 Follow Up Appt 6 months Wei Adamson Start: 10-18-2016 End: 10-18-2016 SEB Tesfaye MD Start: 04-06-2016 End: 04-06-2016 LUDMILA Hagen PA-C Work Phone: Start: 04-06-2016 End: 04-06-2016 Follow Up Appt 6 months Mitali Hagen PA-C Work Phone: Start: 04-06-2016 End: 04-06-2016 LUDMILA Hagen PA-C Work Phone: Start: 04-06-2016 End: 04-06-2016 Follow Up Appt 6 months Mitali Hagen PA-C Work Phone: Start: 10-04-2015 End: 10-04-2015 Ecg routine ecg w/least 12 lds w/i&r Roosevelt Tesfaye MD Start: 10-04-2015 End: 10-04-2015 Follow Up Appt 6 months Wei Adamson Start: 10-04-2015 End: 10-04-2015 MMWei Tesfaye MD Start: 10-04-2015 End: 09-26-2016 Preoperative cardiovascular examination Pre-op cardiovascular exam Aj Baptiste Start: 10-04-2015 End: 10-04-2015 Electrocardiogram, complete Roosevelt Tesfaye MD Start: 10-04-2015 End: 10-04-2015 Follow Up Appt 6 months Wei Adamson Start: 10-04-2015 End: 10-04-2015 SEB Tesfaye MD Start: 10-04-2015 End: 09-26-2016 Preoperative cardiovascular examination Pre-op cardiovascular exam Mariam Amaral RN Start: 05-11-2015 End: 05-16-2015 *BMP Mitali Hagen PA-C Work Phone: Start: 05-11-2015 End: 05-16-2015 *BMP Mitali Hagen PA-C Work Phone: Start: 03-30-2015 End: 04-03-2016 Ambulatory BP Monitor 24 HR Mitali Hagen PA-C Work Phone: Start: 03-30-2015 End: 03-30-2015 NURSE EDUCATOR Mitali Hagen PA-C Work Phone: Start: 03-30-2015 End: 03-30-2015 Follow Up Appt 6 months Mitali Hagen PA-C Work Phone: Start: 03-30-2015 End: 03-30-2015 Follow Up BP Check Mitali Hagen PA-C Work Phone: Start: 03-30-2015 End: 04-03-2016 Ambulatory BP Monitor 24 HR Mitali Hagen PA-C Work Phone: Start: 03-30-2015 End: 03-30-2015 NURSE EDUCATOR Mitali Hagen PA-C Work Phone: Start: 03-30-2015 End: 03-30-2015 Follow Up Appt 6 months Mitali Hagen PA-C Work Phone: Start: 03-30-2015 End: 03-30-2015 Follow Up BP Check Mitali Hagen PA-C Work Phone: Start: 02-09-2015 End: 02-09-2015 Dietary management education, guidance, and counseling Mariam Amaral RN Start: 09-28-2014 End: 09-30-2014 *Hepatic Function Panel Wei Adamson Start: 09-28-2014 End: 09-29-2014 Documentation of current medications Roosevelt Tesfaye MD Start: 09-28-2014 End: 09-28-2014 Follow Up Appt 6 months Wei Adamson Start: 09-28-2014 End: 09-28-2014 MMM Roosevelt Tesfaye MD Start: 09-28-2014 End: 09-30-2014 Thyrotropin [Units/volume] in Serum or Plasma Roosevelt Tesfaye MD Start: 09-28-2014 End: 09-30-2014 Thyroxine (T4) [Mass/volume] in Serum or Plasma Roosevelt Tesfaye MD Start: 09-28-2014 End: 09-30-2014 *Hepatic Function Panel Wei Adamson Start: 09-28-2014 End: 09-29-2014 Documentation of current medications Roosevelt Tesfaye MD Start: 09-28-2014 End: 09-28-2014 Follow Up Appt 6 months Wei Adamson Start: 09-28-2014 End: 09-28-2014 MMM Roosevelt Tesfaye MD Start: 09-28-2014 End: 09-30-2014 Thyroid stimulating hormone (TSH) Roosevelt Tesfaye MD Start: 09-28-2014 End: 09-30-2014 Thyroxine (T4) Roosevelt Tesfaye MD Start: 08-16-2014 End: 08-16-2014 NURSE EDUCATOR Mitali Hagen PA-C Work Phone: Start: 08-16-2014 End: 08-17-2014 Documentation of current medications Mitali Hagen PA-C Work Phone: Start: 08-16-2014 End: 08-16-2014 Follow Up Appt 6 weeks Mitali Hagen PA-C Work Phone: Start: 08-16-2014 End: 08-27-2014 Pulmonary Function Test - complete Mitali Hagen PA-C Work Phone: Start: 08-16-2014 End: 08-16-2014 NURSE EDUCATOR Mitali Hagen PA-C Work Phone: Start: 08-16-2014 End: 08-17-2014 Documentation of current medications Mitali Hagen PA-C Work Phone: Start: 08-16-2014 End: 08-16-2014 Follow Up Appt 6 weeks Mitali Hagen PA-C Work Phone: Start: 08-16-2014 End: 08-27-2014 Pulmonary Function Test - complete Mitali Hagen PA-C Work Phone: Start: 05-18-2014 End: 05-18-2014 *BMP Roosevelt Tesfaye MD Start: 05-18-2014 End: 05-18-2014 *Hepatic Function Panel Wei Adamson Start: 05-18-2014 End: 05-18-2014 CBC W Auto Differential panel - Blood Roosevelt Tesfaye MD Start: 05-18-2014 End: 08-10-2014 Chest x-ray Roosevelt Tesfaye MD Start: 05-18-2014 End: 05-19-2014 Documentation of current medications Roosevelt Tesfaye MD Start: 05-18-2014 End: 05-18-2014 Ecg routine ecg w/least 12 lds w/i&r Roosevelt Tesfaye MD Start: 05-18-2014 End: 05-18-2014 Follow Up Appt 3 months Wei Adamson Start: 05-18-2014 End: 08-10-2014 Left Heart Cath Roosevelt Tesfaye MD Start: 05-18-2014 End: 05-18-2014 MMM Roosevelt Tesfaye MD Start: 05-18-2014 End: 05-18-2014 Thyrotropin [Units/volume] in Serum or Plasma Roosevelt Tesfaye MD Start: 05-18-2014 End: 05-18-2014 Thyroxine (T4) [Mass/volume] in Serum or Plasma Roosevelt Tesfaye MD Start: 05-18-2014 End: 05-18-2014 *BMP Roosevelt Tesfaye MD Start: 05-18-2014 End: 05-18-2014 *Hepatic Function Panel Wei Adamson Start: 05-18-2014 End: 05-18-2014 CBC W Auto Differential panel - Blood Roosevelt Tesfaye MD Start: 05-18-2014 End: 08-10-2014 Chest x-ray Roosevelt Tesfaye MD Start: 05-18-2014 End: 05-19-2014 Documentation of current medications Roosevelt Tesfaye MD Start: 05-18-2014 End: 05-18-2014 Electrocardiogram, complete Roosevelt Tesfaye MD Start: 05-18-2014 End: 05-18-2014 Follow Up Appt 3 months Wei Adamson Start: 05-18-2014 End: 08-10-2014 Left Heart Cath Roosevelt Tesfaye MD Start: 05-18-2014 End: 05-18-2014 MMM Roosevelt Tesfaye MD Start: 05-18-2014 End: 05-18-2014 Thyroid stimulating hormone (TSH) Roosevelt Tesfaye MD Start: 05-18-2014 End: 05-18-2014 Thyroxine (T4) Roosevelt Tesfaye MD Start: 11-19-2013 End: 11-19-2013 LUDMILA Hagen PA-C Work Phone: Start: 11-19-2013 End: 11-19-2013 Follow Up Appt 6 months Mitali Hagen PA-C Work Phone: Start: 11-19-2013 End: 11-19-2013 Follow Up Appt Other Mitali Hagen PA-C Work Phone: Start: 11-19-2013 End: 11-19-2013 LUDMILA Hagen PA-C Work Phone: Start: 11-19-2013 End: 11-19-2013 Follow Up Appt 6 months Mitali Hagen PA-C Work Phone: Start: 11-19-2013 End: 11-19-2013 Follow Up Appt Other Mitali Hagen PA-C Work Phone: Start: 08-21-2013 End: 08-21-2013 Follow Up Appt 3 months Wei Adamson Start: 08-21-2013 End: 08-21-2013 SEB Tesfaye MD Start: 08-21-2013 End: 08-21-2013 Follow Up Appt 3 months Wei Adamson Start: 08-21-2013 End: 08-21-2013 SEB Tesfaye MD Start: 08-11-2013 End: 08-11-2013 Follow Up Appt Other Mitali Hagen PA-C Work Phone: Start: 08-11-2013 End: 08-11-2013 Follow Up Appt Other Mitali Hagen PA-C Work Phone: Start: 07-03-2013 End: 08-11-2013 Ecg routine ecg w/least 12 lds w/i&r Roosevelt Tesfaye MD Start: 07-02-2013 End: 07-03-2013 *BMP Roosevelt Tesfaye MD Start: 07-02-2013 End: 07-03-2013 *CBC with Differential Roosevelt Tesfaye MD Start: 07-02-2013 End: 05-31-2014 Cardioversion Roosevelt Tesfaye MD Start: 07-02-2013 End: 08-11-2013 Electrocardiogram, complete Roosevelt Tesfaye MD Start: 07-02-2013 End: 08-11-2013 Follow Up Appt 2 months Wei Adamson Start: 07-02-2013 End: 08-11-2013 MMWei Tesfaye MD Start: 07-02-2013 End: 07-03-2013 Natriuretic peptide B [Mass/volume] in Blood Roosevelt Tesfaye MD Start: 07-02-2013 End: 07-03-2013 *BMP Roosevelt Tesfaye MD Start: 07-02-2013 End: 07-03-2013 *CBC with Differential Roosevelt Tesfaye MD Start: 07-02-2013 End: 07-03-2013 BNP Roosevelt Tesfaye MD Start: 07-02-2013 End: 05-31-2014 Cardioversion Roosevelt Tesfaye MD Start: 07-02-2013 End: 08-11-2013 Electrocardiogram, complete Roosevelt Tesfaye MD Start: 07-02-2013 End: 08-11-2013 Follow Up Appt 2 months Wei Adamson Start: 07-02-2013 End: 08-11-2013 MMWei Tesfaye MD Start: 05-05-2013 End: 05-05-2013 Follow Up Appt 6 months Wei Adamson Start: 05-05-2013 End: 05-05-2013 MMWei Tesfaye MD Start: 05-05-2013 End: 05-05-2013 Follow Up Appt 6 months Wei Adamson Start: 05-05-2013 End: 05-05-2013 MMWei Tesfaye MD Start: 03-19-2013 End: 03-19-2013 NURSE EDUCATOR KELLEY SolitarioC Work Phone: Start: 03-19-2013 End: 03-19-2013 Follow Up Appt 4 months Mitali Hagen PA-C Work Phone: Start: 03-19-2013 End: 08-11-2013 Nuclear stress test -exercise Mitali Hagne PA-C Work Phone: Start: 03-19-2013 End: 03-19-2013 NURSE EDUCATOR Mitali Hagen PA-C Work Phone: Start: 03-19-2013 End: 03-19-2013 Follow Up Appt 4 months Mitali Hagen PA-C Work Phone: Start: 03-19-2013 End: 08-11-2013 Nuclear stress test -exercise Mitali Hagen PA-C Work Phone: Start: 05-26-2012 End: 07-03-2013 Bacteria identified in Urine by Culture Vi Pulliam MD Start: 05-26-2012 End: 07-03-2013 Urine culture, bacteria Vi Wilhelm Plan of Treatment Date Care Activity Detail Author Start: 07-15-2017 End: 07-15-2017 Appointment Appointment [facility] Work Phone: Start: 05-02-2017 End: 05-02-2017 Appointment Appointment [facility] Work Phone: Start: 01-30-2017 End: 01-30-2017 Appointment Appointment [facility] Work Phone: Start: 01-16-2017 End: 01-16-2017 [facility] Work Phone: Start: 01-16-2017 End: 01-16-2017 Follow Up Appt 6 months Follow Up Appt 6 months [facility] Work Phone: Start: 01-16-2017 End: 01-16-2017 Appointment Appointment [facility] Work Phone: Start: 12-31-2016 End: 01-03-2017 *BMP *BMP [facility] Work Phone: Start: 12-31-2016 End: 12-17-2016 *BMP *BMP [facility] Work Phone: Start: 12-17-2016 End: 12-17-2016 Appointment Appointment [facility] Work Phone: Start: 12-07-2016 End: 12-07-2016 Appointment Appointment [facility] Work Phone: Start: 12-07-2016 End: 12-14-2016 *MISC - Miscellaneous Lab Test #1 *MISC - Miscellaneous Lab Test #1 [facility] Work Phone: Start: 12-07-2016 End: 12-14-2016 [facility] Work Phone: Start: 12-07-2016 End: 12-14-2016 Follow Up Appt 2 months Follow Up Appt 2 months [facility] Work Phone: Start: 12-07-2016 End: 12-14-2016 Pulmonary Function Test - complete Pulmonary Function Test - complete [facility] Work Phone: Start: 12-07-2016 End: 12-14-2016 Pulmonary stress test/simple Pulmonary stress testing; simple (eg, 6-minute walk) [facility] Work Phone: Start: 12-07-2016 End: 12-14-2016 *MISC - Miscellaneous Lab Test #1 *MISC - Miscellaneous Lab Test #1 [facility] Work Phone: Start: 12-07-2016 End: 12-14-2016 [facility] Work Phone: Start: 12-07-2016 End: 12-14-2016 Follow Up Appt 2 months Follow Up Appt 2 months [facility] Work Phone: Start: 12-07-2016 End: 12-14-2016 Pulmonary Function Test - complete Pulmonary Function Test - complete [facility] Work Phone: Start: 12-07-2016 End: 12-14-2016 Pulmonary stress test/simple Pulmonary stress testing; simple (eg, 6-minute walk) [facility] Work Phone: Start: 10-18-2016 End: 10-18-2016 Appointment Appointment [facility] Work Phone: Start: 10-18-2016 End: 10-18-2016 Follow Up Appt 6 months Follow Up Appt 6 months [facility] Work Phone: Start: 10-18-2016 End: 10-18-2016 MMM MMM [facility] Work Phone: Start: 10-18-2016 End: 10-18-2016 Follow Up Appt 6 months Follow Up Appt 6 months [facility] Work Phone: Start: 10-18-2016 End: 10-18-2016 MMM MMM [facility] Work Phone: Start: 04-06-2016 End: 04-06-2016 NURSE EDUCATOR NURSE EDUCATOR [facility] Work Phone: Start: 04-06-2016 End: 04-06-2016 Follow Up Appt 6 months Follow Up Appt 6 months [facility] Work Phone: Start: 04-06-2016 End: 04-06-2016 NURSE EDUCATOR NURSE EDUCATOR [facility] Work Phone: Start: 04-06-2016 End: 04-06-2016 Follow Up Appt 6 months Follow Up Appt 6 months [facility] Work Phone: Start: 10-04-2015 End: 10-04-2015 Ecg routine ecg w/least 12 lds w/i&r EKG (In office) [facility] Work Phone: Start: 10-04-2015 End: 10-04-2015 Follow Up Appt 6 months Follow Up Appt 6 months [facility] Work Phone: Start: 10-04-2015 End: 10-04-2015 MMM MMM [facility] Work Phone: Start: 10-04-2015 End: 10-04-2015 Electrocardiogram, complete EKG (In office) [facility] Work Phone: Start: 10-04-2015 End: 10-04-2015 Follow Up Appt 6 months Follow Up Appt 6 months [facility] Work Phone: Start: 10-04-2015 End: 10-04-2015 MMM MMM [facility] Work Phone: Start: 05-11-2015 End: 05-16-2015 *BMP *BMP [facility] Work Phone: Start: 05-11-2015 End: 05-16-2015 *BMP *BMP [facility] Work Phone: Start: 03-30-2015 End: 03-31-2015 Ambulatory BP Monitor 24 HR Ambulatory BP Monitor 24 HR [facility] Work Phone: Start: 03-30-2015 End: 03-30-2015 NURSE EDUCATOR NURSE EDUCATOR [facility] Work Phone: Start: 03-30-2015 End: 03-30-2015 Follow Up Appt 6 months Follow Up Appt 6 months [facility] Work Phone: Start: 03-30-2015 End: 03-30-2015 Follow Up BP Check Follow Up BP Check [facility] Work Phone: Start: 03-30-2015 End: 03-31-2015 Ambulatory BP Monitor 24 HR Ambulatory BP Monitor 24 HR [facility] Work Phone: Start: 03-30-2015 End: 03-30-2015 NURSE EDUCATOR NURSE EDUCATOR [facility] Work Phone: Start: 03-30-2015 End: 03-30-2015 Follow Up Appt 6 months Follow Up Appt 6 months [facility] Work Phone: Start: 03-30-2015 End: 03-30-2015 Follow Up BP Check Follow Up BP Check [facility] Work Phone: Start: 02-09-2015 End: 02-09-2015 Fungus culture *CUF - Culture, Fungus (Only) [id number] [facility] Work Phone: Start: 02-09-2015 End: 02-09-2015 Fungus culture *CUF - Culture, Fungus (Only) [id number] Work Phone: Start: 09-28-2014 End: 09-30-2014 *Hepatic Function Panel *Hepatic Function Panel [facility] Work Phone: Start: 09-28-2014 End: 09-28-2014 Follow Up Appt 6 months Follow Up Appt 6 months [facility] Work Phone: Start: 09-28-2014 End: 09-28-2014 MMM MMM [facility] Work Phone: Start: 09-28-2014 End: 09-30-2014 Thyroid stimulating hormone (TSH) *TSH [facility] Work Phone: Start: 09-28-2014 End: 09-30-2014 Thyroxine (T4) *T4 (Total) [facility] Work Phone: Start: 09-28-2014 End: 09-30-2014 *Hepatic Function Panel *Hepatic Function Panel [facility] Work Phone: Start: 09-28-2014 End: 09-28-2014 Follow Up Appt 6 months Follow Up Appt 6 months [facility] Work Phone: Start: 09-28-2014 End: 09-28-2014 MMM MMM [facility] Work Phone: Start: 09-28-2014 End: 09-30-2014 Thyroid stimulating hormone (TSH) *TSH [facility] Work Phone: Start: 09-28-2014 End: 09-30-2014 Thyroxine (T4) *T4 (Total) [facility] Work Phone: Start: 08-16-2014 End: 08-16-2014 NURSE EDUCATOR NURSE EDUCATOR [facility] Work Phone: Start: 08-16-2014 End: 08-16-2014 Follow Up Appt 6 weeks Follow Up Appt 6 weeks [facility] Work Phone: Start: 08-16-2014 End: 08-16-2014 Pulmonary Function Test - complete Pulmonary Function Test - complete [facility] Work Phone: Start: 08-16-2014 End: 08-16-2014 NURSE EDUCATOR NURSE EDUCATOR [facility] Work Phone: Start: 08-16-2014 End: 08-16-2014 Follow Up Appt 6 weeks Follow Up Appt 6 weeks [facility] Work Phone: Start: 08-16-2014 End: 08-16-2014 Pulmonary Function Test - complete Pulmonary Function Test - complete [facility] Work Phone: Start: 07-23-2014 End: 07-23-2014 Radiologic examination pelvis 1/2 views X-Ray, Pelvis [facility] Work Phone: Start: 07-23-2014 End: 07-23-2014 X-ray exam of hip X-Ray, Hip Unilateral [facility] Work Phone: Start: 07-23-2014 End: 07-23-2014 X-ray exam of hip X-Ray, Hip Unilateral [facility] Work Phone: Start: 07-23-2014 End: 07-23-2014 X-ray exam of pelvis X-Ray, Pelvis [facility] Work Phone: Start: 05-18-2014 End: 05-18-2014 *BMP *BMP [facility] Work Phone: Start: 05-18-2014 End: 05-18-2014 *Hepatic Function Panel *Hepatic Function Panel [facility] Work Phone: Start: 05-18-2014 End: 05-18-2014 CBC W Auto Differential panel - Blood *CBC without Diff [facility] Work Phone: Start: 05-18-2014 End: 08-10-2014 Chest x-ray X-Ray, Chest, PA & Lateral [facility] Work Phone: Start: 05-18-2014 End: 05-18-2014 Ecg routine ecg w/least 12 lds w/i&r EKG (In office) [facility] Work Phone: Start: 05-18-2014 End: 05-18-2014 Follow Up Appt 3 months Follow Up Appt 3 months [facility] Work Phone: Start: 05-18-2014 End: 05-18-2014 Left Heart Cath Left Heart Cath [facility] Work Phone: Start: 05-18-2014 End: 05-18-2014 MMM MMM [facility] Work Phone: Start: 05-18-2014 End: 05-18-2014 Thyroid stimulating hormone (TSH) *TSH [facility] Work Phone: Start: 05-18-2014 End: 05-18-2014 Thyroxine (T4) *T4 (Total) [facility] Work Phone: Start: 05-18-2014 End: 05-18-2014 *BMP *BMP [facility] Work Phone: Start: 05-18-2014 End: 05-18-2014 *Hepatic Function Panel *Hepatic Function Panel [facility] Work Phone: Start: 05-18-2014 End: 05-18-2014 CBC W Auto Differential panel - Blood *CBC without Diff [facility] Work Phone: Start: 05-18-2014 End: 08-10-2014 Chest x-ray X-Ray, Chest, PA & Lateral [facility] Work Phone: Start: 05-18-2014 End: 05-18-2014 Electrocardiogram, complete EKG (In office) [facility] Work Phone: Start: 05-18-2014 End: 05-18-2014 Follow Up Appt 3 months Follow Up Appt 3 months [facility] Work Phone: Start: 05-18-2014 End: 05-18-2014 Left Heart Cath Left Heart Cath [facility] Work Phone: Start: 05-18-2014 End: 05-18-2014 MMM MMM [facility] Work Phone: Start: 05-18-2014 End: 05-18-2014 Thyroid stimulating hormone (TSH) *TSH [facility] Work Phone: Start: 05-18-2014 End: 05-18-2014 Thyroxine (T4) *T4 (Total) [facility] Work Phone: Start: 11-19-2013 End: 11-19-2013 NURSE EDUCATOR NURSE EDUCATOR [facility] Work Phone: Start: 11-19-2013 End: 11-19-2013 Follow Up Appt 6 months Follow Up Appt 6 months [facility] Work Phone: Start: 11-19-2013 End: 11-19-2013 Follow Up Appt Other Follow Up Appt Other [facility] Work Phone: Start: 11-19-2013 End: 11-19-2013 NURSE EDUCATOR NURSE EDUCATOR [facility] Work Phone: Start: 11-19-2013 End: 11-19-2013 Follow Up Appt 6 months Follow Up Appt 6 months [facility] Work Phone: Start: 11-19-2013 End: 11-19-2013 Follow Up Appt Other Follow Up Appt Other [facility] Work Phone: Start: 08-21-2013 End: 08-21-2013 Follow Up Appt 3 months Follow Up Appt 3 months [facility] Work Phone: Start: 08-21-2013 End: 08-21-2013 MMM MMM [facility] Work Phone: Start: 08-21-2013 End: 08-21-2013 Follow Up Appt 3 months Follow Up Appt 3 months [facility] Work Phone: Start: 08-21-2013 End: 08-21-2013 MMM MMM [facility] Work Phone: Start: 08-11-2013 End: 08-11-2013 Follow Up Appt Other Follow Up Appt Other [facility] Work Phone: Start: 08-11-2013 End: 08-11-2013 Follow Up Appt Other Follow Up Appt Other [facility] Work Phone: Start: 07-03-2013 End: 08-11-2013 Ecg routine ecg w/least 12 lds w/i&r EKG (In office) [facility] Work Phone: Start: 07-02-2013 End: 07-03-2013 *BMP *BMP [facility] Work Phone: Start: 07-02-2013 End: 07-03-2013 *CBC with Differential *CBC with Differential [facility] Work Phone: Start: 07-02-2013 End: 07-03-2013 BNP *Brain Natriuretic Peptide BNP [facility] Work Phone: Start: 07-02-2013 End: 07-02-2013 Cardioversion Cardioversion [facility] Work Phone: Start: 07-02-2013 End: 08-11-2013 Electrocardiogram, complete EKG (In office) [facility] Work Phone: Start: 07-02-2013 End: 08-11-2013 Follow Up Appt 2 months Follow Up Appt 2 months [facility] Work Phone: Start: 07-02-2013 End: 08-11-2013 MMM MMM [facility] Work Phone: Start: 07-02-2013 End: 07-03-2013 *BMP *BMP [facility] Work Phone: Start: 07-02-2013 End: 07-03-2013 *CBC with Differential *CBC with Differential [facility] Work Phone: Start: 07-02-2013 End: 07-03-2013 BNP *Brain Natriuretic Peptide BNP [facility] Work Phone: Start: 07-02-2013 End: 07-02-2013 Cardioversion Cardioversion [facility] Work Phone: Start: 07-02-2013 End: 07-02-2013 Electrocardiogram, complete EKG (In office) [facility] Work Phone: Start: 07-02-2013 End: 08-11-2013 Follow Up Appt 2 months Follow Up Appt 2 months [facility] Work Phone: Start: 07-02-2013 End: 08-11-2013 MMM MMM [facility] Work Phone: Start: 05-05-2013 End: 05-05-2013 Follow Up Appt 6 months Follow Up Appt 6 months [facility] Work Phone: Start: 05-05-2013 End: 05-05-2013 MMM MMM [facility] Work Phone: Start: 05-05-2013 End: 05-05-2013 Follow Up Appt 6 months Follow Up Appt 6 months [facility] Work Phone: Start: 05-05-2013 End: 05-05-2013 MMM MMM [facility] Work Phone: Start: 03-19-2013 End: 03-19-2013 NURSE EDUCATOR NURSE EDUCATOR [facility] Work Phone: Start: 03-19-2013 End: 03-19-2013 Follow Up Appt 4 months Follow Up Appt 4 months [facility] Work Phone: Start: 03-19-2013 End: 03-19-2013 Nuclear stress test -exercise Nuclear stress test -exercise [facility] Work Phone: Start: 03-19-2013 End: 03-19-2013 NURSE EDUCATOR NURSE EDUCATOR [facility] Work Phone: Start: 03-19-2013 End: 03-19-2013 Follow Up Appt 4 months Follow Up Appt 4 months [facility] Work Phone: Start: 03-19-2013 End: 03-19-2013 Nuclear stress test -exercise Nuclear stress test -exercise [facility] Work Phone: Start: 05-26-2012 End: 07-03-2013 Urine culture, bacteria *C&S, Routine Bacteria [facility] Work Phone: Start: 05-26-2012 End: 07-03-2013 Urine culture, bacteria *C&S, Routine Bacteria [facility] Work Phone: Summary Purpose Family History No Family History Records Found Advance Directives No Advanced Directives Records Found Additional Source Comments INFORMATION SOURCE (unrecogn ized section and content) FOR RECORDS PERTAINING TO PATIENTS WHO ARE OR HAVE BEEN ENROLLED IN A CHEMICAL DEPENDENCY/SUBSTANCEABUSE PROGRAM, SOME INFORMATION MAY BE OMITTED. This clinical summary was aggregated from multiple sources. Caution should be exercised in using it in the provision of clinical care. This summary normalizes information from multiple sources, and as a consequence, information in this document may materially change the coding, format and clinical context of patient data. In addition, data may be omitted in some cases. CLINICAL DECISIONS SHOULD BE BASED ON THE PRIMARY CLINICAL RECORDS. [facility] provides no warranty or guarantee of the accuracy or completeness of information in this document.
== END | disposition home or self-care (01) ==
LOC: NM 08:08
PROVIDERS: PCP Family Medicine Geriatric Medicine; Referring Provider Family Medicine Geriatric Medicine; Visit Provider Family Medicine Geriatric Medicine
DX: C90.00 Multiple myeloma not having achieved remission (principal)
CPT/HCPCS: 78306; A9503

== ENCOUNTER → 2023-03-15 | Outpatient (CLI) | payer MEDICARE, OTHER, SELFPAY ==
--- OUTSIDE RECORDS SUMMARY | 2023-03-15 11:36 | XMS RPT_ITS | CCD ---
Author Name Unknown Address [address] [place] [address] Organization [facility] Care Team Providers Care Mold Tooling Technician Name Role Phone Aj Baptiste Unavailable Unavailable Vijaya Arshad Unavailable Unavailable Pat Pa Unavailable Unavailable Roof RESEARCH PHYSIOLOGIST, Chad Aden Unavailable iVjaya Arshad Unavailable Unavailable FLETCHER Rehman, Natalie Carvajal Unavailable Unavailabl Rina Vogt Unavailable Unavailable Rina Patel Unavailable Unavailable Aj Baptiste Unavailable Unavailable Aj Baptiste Unavailable Unavailable Pat Pa Unavailable Unavailable Mariam Amaral RN Unavailable Unavailable Vijaya Arshad Unavailable Unavailable Pat Pa Unavailable Unavailable Allergies Allergy Classification Reported Allergen(s) Allergy Type Date of Onset Reaction(s) Facility (14 sources) amLODIPine drug allergy 6 constipation [facility] Work Phone: [phone] (14 sources) ascorbic acid / beta carotene / cuprous oxide / vitamin E / zinc oxide drug allergy 6 rash [facility] Work Phone: [phone] (14 sources) doxazosin drug allergy 6 lightheadedness [facility] Work Phone: [phone] (14 sources) fish oil drug allergy 6 rash [facility] Work Phone: [phone] (20 sources) Sulfonamides (Antibiotic) drug allergy 9 Unknown, had a reaction when she was 5 y/o [facility] Work Phone: [phone] (14 sources) OXYBUT drug allergy 6 rash [facility] Work Phone: Medications Completed/Discontinued Medications Medication Drug Class(es) Dates Sig (Normalized) Sig (Original) 200 actuat albuterol 0.09 mg/actuat metered dose inhaler (9 sources) beta2-Adrenergic Agonist Start: 11-16-2016 PROAIR HFA 108 (90 Base) MCG/ACT AERS Two inh every 4 hrs as needed ALBUTEROL SULFATE [id number] Pat Pa Problems Active Problems Problem Classification [...] 40.74 kg/m2 Rina Patel [facility] Work Phone: 01-16-2017 06:47-0400 Body Temperature 98.8 [degF] Rina Patel [facility] Work Phone: 01-16-2017 06:47-0400 BP Diastolic 70 mm[Hg] Rina Patel [facility] Work Phone: 01-16-2017 06:47-0400 BP Systolic 124 mm[Hg] Rina Patel [facility] Work Phone: 01-16-2017 06:47-0400 Height 172.09 cm Rina Patel [facility] Work Phone: 01-16-2017 06:47-0400 Pulse (Heart Rate) 57 /min Rina Patel [facility] Work Phone: 01-16-2017 06:47-0400 Respiratory Rate 18 /min Rina Patel [facility] Work Phone: 01-16-2017 06:47-0400 Weight 120.66 kg Rina Patel [facility] Work Phone: 12-17-2016 10:51-0400 Heart rate 47 [...] 11:13-0400 BMI (Body Mass Index) 42.73 kg/m2 [facility] Work Phone: 12-07-2016 11:13-0400 Body Temperature 98.8 [degF] [facility] Work Phone: 12-07-2016 11:13-0400 BP Diastolic 69 mm[Hg] Pat Thierno [facility] Work Phone: 12-07-2016 11:13-0400 BP Systolic 173 mm[Hg] Pat Thierno [facility] Work Phone: 12-07-2016 11:13-0400 Height 172.09 cm [facility] [place] [facility] Work Phone: 12-07-2016 11:13-0400 Pulse (Heart Rate) 51 /min [facility] Work Phone: 12-07-2016 11:13-0400 Respiratory Rate 18 /min [facility] Work Phone: [...] Mass Index) 41.41 kg/m2 Natalie Rehman RN [facility] Work Phone: 04-06-2016 13:35-0500 BP [...] Heart rate 466 ms Mariam Amaral RN [facility] Work Phone: Procedures Date Procedure Procedure Detail Performing Clinician Start: 12-31-2016 End: 01-03-2017 *BMP Chad Woodard RESEARCH PHYSIOLOGIST Work Phone: Start: 12-17-2016 End: 12-17-2016 Ecg routine ecg w/least 12 lds w/i&r Chad Woodard RESEARCH PHYSIOLOGIST Work Phone: Start: 12-07-2016 End: 12-14-2016 *MISC - Miscellaneous Lab Test #1 Bessy Galan CNP Work Phone: Start: 12-07-2016 End: 12-14-2016 DMB Bessy Galan CHIEF SECURITY OFFICER Work Phone: Start: 12-07-2016 End: 12-14-2016 Follow Up Appt 2 months Bessy vallejo CHIEF SECURITY OFFICER Work Phone: Start: 12-07-2016 End: 12-14-2016 Pulmonary Function Test - complete Bessy Galan CHIEF SECURITY OFFICER Work Phone: Start: 12-07-2016 End: 12-14-2016 Pulmonary stress test/simple Bessy Galan CHIEF SECURITY OFFICER Work Phone: Start: 12-07-2016 End: 12-07-2016 Dietary management education, guidance, and counseling Pat Pa Start: 12-07-2016 End: 12-14-2016 *MISC - Miscellaneous Lab Test #1 Bessy Galan CHIEF SECURITY OFFICER Work Phone: Start: 12-07-2016 End: 12-14-2016 DMB Bessy Galan CHIEF SECURITY OFFICER Work Phone: Start: 12-07-2016 End: 12-14-2016 Follow Up Appt 2 months Bessy Mahoney Marlene genevieve CHIEF SECURITY OFFICER Work Phone: Start: 12-07-2016 End: 12-14-2016 Pulmonary Function Test - complete Bessy Galan CHIEF SECURITY OFFICER Work Phone: Start: 12-07-2016 End: 12-14-2016 Pulmonary stress test/simple Bessy Galan CHIEF SECURITY OFFICER Work Phone: Start: 10-18-2016 End: 10-18-2016 Follow [...] PA-C Work Phone: Start: 03-30-2015 End: 03-30-2015 LOCATION ANALYST Mitali Hagen PA-C Work Phone: Start: 03-30-2015 End: 03-30-2015 Follow Up Appt 6 months Mitali Hagen PA-C Work Phone: Start: 03-30-2015 End: 03-30-2015 Follow Up BP Check Mitali Hagen PA-C Work Phone: Start: 03-30-2015 End: 04-03-2016 Ambulatory BP Monitor 24 HR Mitali Hagen PA-C Work Phone: Start: 03-30-2015 End: 03-30-2015 LOCATION ANALYST Mitali Hagen PA-C Work Phone: Start: 03-30-2015 [...] Roosevelt Tesfaye MD Start: 08-16-2014 End: 08-16-2014 LOCATION ANALYST Mitali Hagen PA-C Work Phone: Start: 08-16-2014 End: 08-17-2014 Documentation of current medications Mitali Hagen PA-C Work Phone: Start: 08-16-2014 End: 08-16-2014 Follow Up Appt 6 weeks Mitali Hagen PA-C Work Phone: Start: 08-16-2014 End: 08-27-2014 Pulmonary Function Test - complete Mitali Hagen PA-C Work Phone: Start: 08-16-2014 End: 08-16-2014 LOCATION ANALYST Mitali Hagen PA-C Work Phone: Start: 08-16-2014 [...] MMWei Tesfaye MD Start: 03-19-2013 End: 03-19-2013 LOCATION ANALYST KELLEY SolitarioC Work Phone: Start: 03-19-2013 End: 03-19-2013 Follow Up Appt 4 months Mitali Hagen PA-C Work Phone: Start: 03-19-2013 End: 08-11-2013 Nuclear stress test -exercise Mitali Hagen PA-C Work Phone: Start: 03-19-2013 End: 03-19-2013 LOCATION ANALYST Mitali Hagen PA-C Work Phone: Start: 03-19-2013 [...] Phone: Start: 01-30-2017 End: 01-30-2017 Appointment Appointment [facility] Work Phone: Start: 01-16-2017 End: 01-16-2017 [facility] Work Phone: Start: 01-16-2017 End: 01-16-2017 Follow Up Appt 6 months Follow Up Appt 6 months [facility] Work Phone: Start: 01-16-2017 End: 01-16-2017 Appointment Appointment [facility] Work Phone: Start: 12-31-2016 End: 01-03-2017 *BMP *BMP [facility] Work Phone: Start: 12-31-2016 End: 12-17-2016 *BMP *BMP [facility] Work Phone: Start: 12-17-2016 End: 12-17-2016 Appointment Appointment [facility] Work Phone: Start: 12-07-2016 End: 12-07-2016 Appointment Appointment [facility] Work Phone: Start: 12-07-2016 End: 12-14-2016 *MISC - Miscellaneous Lab Test #1 *MISC - Miscellaneous Lab Test #1 [facility] Work Phone: Start: 12-07-2016 End: 12-14-2016 [facility] Work Phone: Start: 12-07-2016 End: 12-14-2016 Follow Up Appt 2 months Follow Up Appt 2 months [facility] Work Phone: Start: 12-07-2016 End: 12-14-2016 Pulmonary Function Test - complete Pulmonary Function Test - complete [facility] Work Phone: Start: 12-07-2016 End: 12-14-2016 Pulmonary stress test/simple Pulmonary stress testing; simple (eg, 6-minute walk) [facility] Work Phone: Start: 12-07-2016 End: 12-14-2016 *MISC - Miscellaneous Lab Test #1 *MISC - Miscellaneous Lab Test #1 [facility] Work Phone: Start: 12-07-2016 End: 12-14-2016 [facility] Work Phone: Start: 12-07-2016 End: 12-14-2016 Follow Up Appt 2 months Follow Up Appt 2 months [facility] Work Phone: Start: 12-07-2016 End: 12-14-2016 Pulmonary Function Test - complete Pulmonary Function Test - complete [facility] Work Phone: Start: 12-07-2016 End: 12-14-2016 Pulmonary stress test/simple Pulmonary stress testing; simple (eg, 6-minute walk) [facility] Work Phone: Start: 10-18-2016 End: 10-18-2016 Appointment Appointment [facility] Work Phone: Start: 10-18-2016 End: 10-18-2016 Follow Up Appt 6 months Follow Up Appt 6 months [facility] Work Phone: Start: 10-18-2016 End: 10-18-2016 MMM MMM [facility] Work Phone: Start: 10-18-2016 End: 10-18-2016 Follow Up Appt 6 months Follow Up Appt 6 months [facility] Work Phone: Start: 10-18-2016 End: 10-18-2016 MMM MMM [facility] Work Phone: Start: 04-06-2016 End: 04-06-2016 LOCATION ANALYST LOCATION ANALYST [facility] Work Phone: Start: 04-06-2016 End: 04-06-2016 Follow Up Appt 6 months Follow Up Appt 6 months [facility] Work Phone: Start: 04-06-2016 End: 04-06-2016 LOCATION ANALYST LOCATION ANALYST [facility] Work Phone: Start: 04-06-2016 End: 04-06-2016 Follow Up Appt 6 months Follow Up Appt 6 months [facility] Work Phone: Start: 10-04-2015 End: 10-04-2015 Ecg routine ecg w/least 12 lds w/i&r EKG (In office) [facility] Work Phone: Start: 10-04-2015 End: 10-04-2015 Follow Up Appt 6 months Follow Up Appt 6 months [facility] Work Phone: Start: 10-04-2015 End: 10-04-2015 MMM MMM [facility] Work Phone: Start: 10-04-2015 End: 10-04-2015 Electrocardiogram, complete EKG (In office) [facility] Work Phone: Start: 10-04-2015 End: 10-04-2015 Follow Up Appt 6 months Follow Up Appt 6 months [facility] Work Phone: Start: 10-04-2015 End: 10-04-2015 MMM MMM [facility] Work Phone: Start: 05-11-2015 End: 05-16-2015 *BMP *BMP [facility] Work Phone: Start: 05-11-2015 End: 05-16-2015 *BMP *BMP [facility] Work Phone: Start: 03-30-2015 End: 03-31-2015 Ambulatory BP Monitor 24 HR Ambulatory BP Monitor 24 HR [facility] Work Phone: Start: 03-30-2015 End: 03-30-2015 LOCATION ANALYST LOCATION ANALYST [facility] Work Phone: Start: 03-30-2015 End: 03-30-2015 Follow Up Appt 6 months Follow Up Appt 6 months [facility] Work Phone: Start: 03-30-2015 End: 03-30-2015 Follow Up BP Check Follow Up BP Check [facility] Work Phone: Start: 03-30-2015 End: 03-31-2015 Ambulatory BP Monitor 24 HR Ambulatory BP Monitor 24 HR [facility] Work Phone: Start: 03-30-2015 End: 03-30-2015 LOCATION ANALYST LOCATION ANALYST [facility] Work Phone: Start: 03-30-2015 End: 03-30-2015 Follow Up Appt 6 months Follow Up Appt 6 months [facility] Work Phone: Start: 03-30-2015 End: 03-30-2015 Follow Up BP Check Follow Up BP Check [facility] Work Phone: Start: 02-09-2015 End: 02-09-2015 Fungus culture *CUF - Culture, Fungus (Only) [id number] [facility] Work Phone: Start: 02-09-2015 End: 02-09-2015 Fungus culture *CUF - Culture, Fungus (Only) [id number] [facility] Work Phone: Start: 09-28-2014 End: 09-30-2014 *Hepatic Function Panel *Hepatic Function Panel [facility] Work Phone: Start: 09-28-2014 End: 09-28-2014 Follow Up Appt 6 months Follow Up Appt 6 months [facility] Work Phone: Start: 09-28-2014 End: 09-28-2014 MMM MMM [facility] Work Phone: Start: 09-28-2014 End: 09-30-2014 Thyroid stimulating hormone (TSH) *TSH [facility] Work Phone: Start: 09-28-2014 End: 09-30-2014 Thyroxine (T4) *T4 (Total) [facility] Work Phone: Start: 09-28-2014 End: 09-30-2014 *Hepatic Function Panel *Hepatic Function Panel [facility] Work Phone: Start: 09-28-2014 End: 09-28-2014 Follow Up Appt 6 months Follow Up Appt 6 months [facility] Work Phone: Start: 09-28-2014 End: 09-28-2014 MMM MMM [facility] Work Phone: Start: 09-28-2014 End: 09-30-2014 Thyroid stimulating hormone (TSH) *TSH [facility] Work Phone: Start: 09-28-2014 End: 09-30-2014 Thyroxine (T4) *T4 (Total) [facility] Work Phone: Start: 08-16-2014 End: 08-16-2014 LOCATION ANALYST LOCATION ANALYST [facility] Work Phone: Start: 08-16-2014 End: 08-16-2014 Follow Up Appt 6 weeks Follow Up Appt 6 weeks [facility] Work Phone: Start: 08-16-2014 End: 08-16-2014 Pulmonary Function Test - complete Pulmonary Function Test - complete [facility] Work Phone: Start: 08-16-2014 End: 08-16-2014 LOCATION ANALYST LOCATION ANALYST [facility] Work Phone: Start: 08-16-2014 End: 08-16-2014 Follow Up Appt 6 weeks Follow Up Appt 6 weeks [facility] Work Phone: Start: 08-16-2014 End: 08-16-2014 Pulmonary Function Test - complete Pulmonary Function Test - complete [facility] Work Phone: Start: 07-23-2014 End: [...] Phone: Start: 05-18-2014 End: 05-18-2014 *BMP *BMP [facility] Work Phone: Start: 05-18-2014 End: 05-18-2014 *Hepatic Function Panel *Hepatic Function Panel [facility] Work Phone: Start: 05-18-2014 End: 05-18-2014 CBC W Auto Differential panel - Blood *CBC without Diff [facility] Work Phone: Start: 05-18-2014 End: 08-10-2014 Chest x-ray X-Ray, Chest, PA & Lateral [facility] Work Phone: Start: 05-18-2014 End: 05-18-2014 Ecg routine ecg w/least 12 lds w/i&r EKG (In office) [facility] Work Phone: Start: 05-18-2014 End: 05-18-2014 Follow Up Appt 3 months Follow Up Appt 3 months [facility] Work Phone: Start: 05-18-2014 End: 05-18-2014 Left Heart Cath Left Heart Cath [facility] Work Phone: Start: 05-18-2014 End: 05-18-2014 MMM MMM [facility] Work Phone: Start: 05-18-2014 End: 05-18-2014 Thyroid stimulating hormone (TSH) *TSH [facility] Work Phone: Start: 05-18-2014 End: 05-18-2014 Thyroxine (T4) *T4 (Total) [facility] Work Phone: Start: 05-18-2014 End: 05-18-2014 *BMP *BMP [facility] Work Phone: Start: 05-18-2014 End: 05-18-2014 *Hepatic Function Panel *Hepatic Function Panel [facility] Work Phone: Start: 05-18-2014 End: 05-18-2014 CBC W Auto Differential panel - Blood *CBC without Diff [facility] Work Phone: Start: 05-18-2014 End: 08-10-2014 Chest x-ray X-Ray, Chest, PA & Lateral [facility] Work Phone: Start: 05-18-2014 End: 05-18-2014 Electrocardiogram, complete EKG (In office) [facility] Work Phone: Start: 05-18-2014 End: 05-18-2014 Follow Up Appt 3 months Follow Up Appt 3 months [facility] Work Phone: Start: 05-18-2014 End: 05-18-2014 Left Heart Cath Left Heart Cath [facility] Work Phone: Start: 05-18-2014 End: 05-18-2014 MMM MMM [facility] Work Phone: Start: 05-18-2014 End: 05-18-2014 Thyroid stimulating hormone (TSH) *TSH [facility] Work Phone: Start: 05-18-2014 End: 05-18-2014 Thyroxine (T4) *T4 (Total) [facility] Work Phone: Start: 11-19-2013 End: 11-19-2013 LOCATION ANALYST LOCATION ANALYST [facility] Work Phone: Start: 11-19-2013 End: 11-19-2013 Follow Up Appt 6 months Follow Up Appt 6 months [facility] Work Phone: Start: 11-19-2013 End: 11-19-2013 Follow Up Appt Other Follow Up Appt Other [facility] Work Phone: Start: 11-19-2013 End: 11-19-2013 LOCATION ANALYST LOCATION ANALYST [facility] Work Phone: Start: 11-19-2013 End: 11-19-2013 Follow Up Appt 6 months Follow Up Appt 6 months [facility] Work Phone: Start: 11-19-2013 End: 11-19-2013 Follow Up Appt Other Follow Up Appt Other [facility] Work Phone: Start: 08-21-2013 End: 08-21-2013 Follow Up Appt 3 months Follow Up Appt 3 months [facility] Work Phone: Start: 08-21-2013 End: 08-21-2013 MMM MMM [facility] Work Phone: Start: 08-21-2013 End: 08-21-2013 Follow Up Appt 3 months Follow Up Appt 3 months [facility] Work Phone: Start: 08-21-2013 End: 08-21-2013 MMM MMM [facility] Work Phone: Start: 08-11-2013 End: 08-11-2013 Follow Up Appt Other Follow Up Appt Other [facility] Work Phone: Start: 08-11-2013 End: 08-11-2013 Follow Up Appt Other Follow Up Appt Other [facility] Work Phone: Start: 07-03-2013 End: 08-11-2013 Ecg routine ecg w/least 12 lds w/i&r EKG (In office) [facility] Work Phone: Start: 07-02-2013 End: 07-03-2013 *BMP *BMP [facility] Work Phone: Start: 07-02-2013 End: 07-03-2013 *CBC with Differential *CBC with Differential [facility] Work Phone: Start: 07-02-2013 End: 07-03-2013 BNP *Brain Natriuretic Peptide BNP [facility] Work Phone: Start: 07-02-2013 End: 07-02-2013 Cardioversion Cardioversion [facility] Work Phone: Start: 07-02-2013 End: 08-11-2013 Electrocardiogram, complete EKG (In office) [facility] Work Phone: Start: 07-02-2013 End: 08-11-2013 Follow Up Appt 2 months Follow Up Appt 2 months [facility] Work Phone: Start: 07-02-2013 End: 08-11-2013 MMM MMM [facility] Work Phone: Start: 07-02-2013 End: 07-03-2013 *BMP *BMP [facility] Work Phone: Start: 07-02-2013 End: 07-03-2013 *CBC with Differential *CBC with Differential [facility] Work Phone: Start: 07-02-2013 End: 07-03-2013 BNP *Brain Natriuretic Peptide BNP [facility] Work Phone: Start: 07-02-2013 End: 07-02-2013 Cardioversion Cardioversion [facility] Work Phone: Start: 07-02-2013 End: 07-02-2013 Electrocardiogram, complete EKG (In office) [facility] Work Phone: Start: 07-02-2013 End: 08-11-2013 Follow Up Appt 2 months Follow Up Appt 2 months [facility] Work Phone: Start: 07-02-2013 End: 08-11-2013 MMM MMM [facility] Work Phone: Start: 05-05-2013 End: 05-05-2013 Follow Up Appt 6 months Follow Up Appt 6 months [facility] Work Phone: Start: 05-05-2013 End: 05-05-2013 MMM MMM [facility] Work Phone: Start: 05-05-2013 End: 05-05-2013 Follow Up Appt 6 months Follow Up Appt 6 months [facility] Work Phone: Start: 05-05-2013 End: 05-05-2013 MMM MMM [facility] Work Phone: Start: 03-19-2013 End: 03-19-2013 LOCATION ANALYST LOCATION ANALYST [facility] Work Phone: Start: 03-19-2013 End: 03-19-2013 Follow Up Appt 4 months Follow Up Appt 4 months [facility] Work Phone: Start: 03-19-2013 End: 03-19-2013 Nuclear stress test -exercise Nuclear stress test -exercise [facility] Work Phone: Start: 03-19-2013 End: 03-19-2013 LOCATION ANALYST LOCATION ANALYST [facility] Work Phone: Start: 03-19-2013 End: 03-19-2013 Follow Up Appt 4 months Follow Up Appt 4 months [facility] Work Phone: Start: 03-19-2013 End: 03-19-2013 Nuclear stress test -exercise Nuclear stress test -exercise [facility] Work Phone: Start: 05-26-2012 End: 07-03-2013 Urine culture, bacteria *C&S, Routine Bacteria [facility] Work Phone: Start: 05-26-2012 End: 07-03-2013 Urine culture, bacteria *C&S, Routine Bacteria [facility] Work Phone: Summary Purpose Family [...] BE BASED ON THE PRIMARY CLINICAL RECORDS. [employer] [facility]. provides no warranty or guarantee of the accuracy or completeness of information in this document.
[2023-03-15] MEDS: Lidocaine 2% (20 ml mdv) 20 ML Vial INFILT (12:29)
--- NOTE | 2023-03-15 12:40 | RAD_ITS ---
EXAM: XR CHEST, 2 VIEWS CLINICAL INDICATION: post thoracentesis TECHNIQUE: Frontal and lateral views of the chest. COMPARISON: XR Chest dated 03/06/2023 FINDINGS: LUNGS AND PLEURAL SPACES: Blunting of the left lateral costophrenic sulcus again noted. No reaccumulation of effusion. No airspace opacification of the lungs. HEART: Stable mild cardiomegaly. MEDIASTINUM: No mediastinal or hilar mass. BONES/JOINTS: No acute abnormality. RAD/Chest Insp/Exp 2 View IMPRESSION: No interval change. Electronically Signed: Emanuel Melo MD at 12:53 EST ,
[2023-03-15 12:56] VITALS: BP 133/62; PULSE 90; RESP 18; TEMP 35.9; O2SAT 96
--- NOTE | 2023-03-15 12:56 | PCM.OP.PRO ---
Procedure Report Date of Procedure: 03/15/23 Assessment & Plan Assessment/Plan (1) Pleural effusion, left: PLAN: PROCEDURE: Ultrasound Guided Thoracentesis ORDERING PROVIDER: Dr. Douglas INDICATION: Female, 83 years old. Recurrent left pleural effusion. PROVIDER: ANAMIKA Bravo PROCEDURE: The risks, benefits, and alternatives to the procedure were explained to the patient. The specific risks of bleeding, infection, and pneumothorax requiring chest tube insertion were discussed and accepted. Written informed consent was obtained. The patient was placed in the sitting, upright position. Ultrasonographic evaluation of the bilateral lower pleural spaces was carried out. An adequate pocket was identified in the left lower pleural space.The overlying skin was prepped and draped in sterile fashion. 2% lidocaine was administered subcutaneously for local anesthesia. Under ultrasound guidance, a 5-Maldivian thoracentesis needle/catheter system was advanced into the left posterior lower pleural fluid collection. 1490 ml of clear yellow colored fluid was drained. The catheter was removed, and a sterile dressing was applied. The patient tolerated the procedure well. A chest x-ray was ordered. IMPRESSION: Successful ultrasound-guided thoracentesis of left pleural effusion. Procedures Radiology Radiology US Procedures: [id number] Thoracentesis
[2023-03-15 12:57] VITALS: BP 118/70; PULSE 86; RESP 18; O2SAT 95
[2023-03-15 12:58] VITALS: BP 124/61; PULSE 93; RESP 18; O2SAT 96
== END | disposition home or self-care (01) ==
LOC: US 11:16
PROVIDERS: PCP Family Medicine Geriatric Medicine; Referring Provider Family Medicine Geriatric Medicine; Visit Provider Family Medicine Geriatric Medicine
DX: J90 Pleural effusion, not elsewhere classified (principal)
CPT/HCPCS: 32555; 71046

== ENCOUNTER → 2023-03-26 | Outpatient (CLI) | payer MEDICARE, OTHER, SELFPAY ==
--- OUTSIDE RECORDS SUMMARY | 2023-03-26 08:07 | XMS RPT_ITS | CCD ---
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 Name Role Phone Aj Baptiste Unavailable Unavailable Vijaya Arshad Unavailable Unavailable Pat Pa Unavailable Unavailable Roof CHECK PILOT, Chad Aden Unavailable Vijaya Arshad Unavailable Unavailable [...] (14 sources) amLODIPine drug allergy 6 constipation [facility] Work Phone: [phone] (14 sources) ascorbic acid / beta carotene / cuprous oxide / vitamin E / zinc oxide drug allergy 6 rash [facility] Work Phone: [phone] (14 sources) doxazosin drug allergy 6 lightheadedness [facility] Work Phone: [phone] (14 sources) fish oil drug allergy 6 rash [facility] Work Phone: [phone] (20 sources) Sulfonamides (Antibiotic) drug allergy 9 Unknown, had a reaction when she was 5 y/o [facility] Work Phone: [phone] (14 sources) OXYBUT drug allergy 6 rash [facility] Work Phone: Medications Completed/Discontinued Medications Medication Drug Class(es) Dates Sig (Normalized) Sig (Original) 200 actuat albuterol 0.09 mg/actuat metered dose inhaler (9 sources) beta2-Adrenergic Agonist Start: 11-16-2016 PROAIR HFA 108 (90 Base) MCG/ACT AERS Two inh every 4 hrs as needed ALBUTEROL SULFATE [id number] Pat Pa Problems Active Problems Problem Classification [...] 40.74 kg/m2 Rina Patel [facility] Work Phone: 01-16-2017 06:47-0400 Body Temperature 98.8 [degF] Rina Patel [facility] Work Phone: 01-16-2017 06:47-0400 BP Diastolic 70 mm[Hg] Rina Patel [facility] Work Phone: 01-16-2017 06:47-0400 BP Systolic 124 mm[Hg] Rina Patel [facility] Work Phone: 01-16-2017 06:47-0400 Height 172.09 cm Rina Patel [facility] Work Phone: 01-16-2017 06:47-0400 Pulse (Heart Rate) 57 /min Rina Patel [facility] Work Phone: 01-16-2017 06:47-0400 Respiratory Rate 18 /min Rina Patel [facility] Work Phone: 01-16-2017 06:47-0400 Weight 120.66 kg Rina Patel [facility] Work Phone: 12-17-2016 10:51-0400 Heart rate 47 [...] 11:13-0400 BMI (Body Mass Index) 42.73 kg/m2 [facility] Work Phone: 12-07-2016 11:13-0400 Body Temperature 98.8 [degF] [facility] Work Phone: 12-07-2016 11:13-0400 BP Diastolic 69 mm[Hg] Pat Thierno [facility] Work Phone: 12-07-2016 11:13-0400 BP Systolic 173 mm[Hg] Pat Thierno [facility] Work Phone: 12-07-2016 11:13-0400 Height 172.09 cm [facility] Work Phone: 12-07-2016 11:13-0400 Pulse (Heart Rate) 51 /min [facility] Work Phone: 12-07-2016 11:13-0400 Respiratory Rate 18 /min [facility] [place] [facility] Work Phone: 12-07-2016 11:13-0400 Weight 126.55 kg Pat Pa [facility] [place] [facility] Work Phone: 10-18-2016 15:41-0400 BMI (Body Mass [...] Mass Index) 41.41 kg/m2 Natalie Rehman RN [facility] Work Phone: 04-06-2016 13:35-0500 BP [...] 13:35-0500 Weight 122.65 kg Natalie Rehman RN [facility] Work Phone: 10-04-2015 14:37-0400 Heart rate 57 /min [facility] Work Phone: 02-09-2015 13:55-0500 Body Temperature 96.4 [degF] [facility] Work Phone: 08-21-2013 14:20-0400 Height 172.09 cm [facility] Work Phone: 07-03-2013 11:14-0400 Heart rate 466 ms Mariam Amaral RN [facility] Work Phone: Procedures Date Procedure Procedure Detail Performing Clinician Start: 12-31-2016 End: 01-03-2017 *BMP Chad Woodard CHECK PILOT Work Phone: Start: 12-17-2016 End: 12-17-2016 Ecg routine ecg w/least 12 lds w/i&r Chad Woodard CHECK PILOT Work Phone: Start: 12-07-2016 End: 12-14-2016 *MISC - Miscellaneous Lab Test #1 Bessy Galan CNP Work Phone: Start: 12-07-2016 End: 12-14-2016 DMB Bessy Galan FOLDER MACHINE Work Phone: Start: 12-07-2016 End: 12-14-2016 Follow Up Appt 2 months Bessy vallejo FOLDER MACHINE Work Phone: Start: 12-07-2016 End: 12-14-2016 Pulmonary Function Test - complete Bessy Galan FOLDER MACHINE Work Phone: Start: 12-07-2016 End: 12-14-2016 Pulmonary stress test/simple Bessy Galan FOLDER MACHINE Work Phone: Start: 12-07-2016 End: 12-07-2016 Dietary management education, guidance, and counseling Pat Pa Start: 12-07-2016 End: 12-14-2016 *MISC - Miscellaneous Lab Test #1 Bessy Galan FOLDER MACHINE Work Phone: Start: 12-07-2016 End: 12-14-2016 DMB Bessy Galan FOLDER MACHINE Work Phone: Start: 12-07-2016 End: 12-14-2016 Follow Up Appt 2 months Bessy Mahoney Marlene genevieve FOLDER MACHINE Work Phone: Start: 12-07-2016 End: 12-14-2016 Pulmonary Function Test - complete Bessy Galan FOLDER MACHINE Work Phone: Start: 12-07-2016 End: 12-14-2016 Pulmonary stress test/simple Bessy Galan FOLDER MACHINE Work Phone: Start: 10-18-2016 End: 10-18-2016 Follow [...] 04-03-2016 Ambulatory BP Monitor 24 HR Mitali Hagne PA-C Work Phone: Start: 03-30-2015 End: 03-30-2015 [employer]ARCH CONTRACTS SUPERVISOR Mitali Hagen PA-C Work Phone: Start: 03-30-2015 End: 03-30-2015 Follow Up Appt 6 months Mitali Hagen PA-C Work Phone: Start: 03-30-2015 End: 03-30-2015 Follow Up BP Check Mitali Hagen PA-C Work Phone: Start: 03-30-2015 End: 04-03-2016 Ambulatory BP Monitor 24 HR Mitali Hagen PA-C Work Phone: Start: 03-30-2015 End: 03-30-2015 RESEARCH CONTRACTS SUPERVISOR Mitali Hagen PA-C Work Phone: Start: 03-30-2015 [...] Roosevelt Tesfaye MD Start: 08-16-2014 End: 08-16-2014 [employer]ARCH CONTRACTS SUPERVISOR Mitali Hagen PA-C Work Phone: Start: 08-16-2014 End: 08-17-2014 Documentation of current medications Mitali Hagen PA-C Work Phone: Start: 08-16-2014 End: 08-16-2014 Follow Up Appt 6 weeks Mitali Hagen PA-C Work Phone: Start: 08-16-2014 End: 08-27-2014 Pulmonary Function Test - complete Mitali Hagen PA-C Work Phone: Start: 08-16-2014 End: 08-16-2014 [employer]EARCH CONTRACTS SUPERVISOR Mitali Hagen PA-C Work Phone: Start: 08-16-2014 [...] 11-19-2013 Follow Up Appt 6 months Mitali aHgen PA-C Work Phone: Start: 11-19-2013 End: 11-19-2013 [...] MMWei Tesfaye MD Start: 03-19-2013 End: 03-19-2013 [employer]EARCH CONTRACTS SUPERVISOR KELLEY SolitarioC Work Phone: Start: 03-19-2013 End: 03-19-2013 Follow Up Appt 4 months Mitali Hagen PA-C Work Phone: Start: 03-19-2013 End: 08-11-2013 Nuclear stress test -exercise Mitali Hagen PA-C Work Phone: Start: 03-19-2013 End: 03-19-2013 [employer]EARCH CONTRACTS SUPERVISOR Mitali Hagen PA-C Work Phone: Start: 03-19-2013 [...] End: 07-15-2017 Appointment Appointment [facility] Work Phone: Start: 05-02-2017 End: 05-02-2017 Appointment Appointment [facility] Work Phone: Start: 01-30-2017 End: 01-30-2017 Appointment Appointment [facility] Work Phone: Start: 01-16-2017 End: 01-16-2017 [facility] Work Phone: Start: 01-16-2017 End: 01-16-2017 Follow Up Appt 6 months Follow Up Appt 6 months [facility] Work Phone: Start: 01-16-2017 End: 01-16-2017 Appointment Appointment [facility] Work Phone: Start: 12-31-2016 End: 01-03-2017 *BMP *BMP [facility] Work Phone: Start: 12-31-2016 End: 12-17-2016 *BMP *BMP [facility] Work Phone: Start: 12-17-2016 End: 12-17-2016 Appointment Appointment [facility] Work Phone: Start: 12-07-2016 End: 12-07-2016 Appointment Appointment [facility] Work Phone: Start: 12-07-2016 End: 12-14-2016 *MISC - Miscellaneous Lab Test #1 *MISC - Miscellaneous Lab Test #1 [facility] Work Phone: Start: 12-07-2016 End: 12-14-2016 [facility] Work Phone: Start: 12-07-2016 End: 12-14-2016 Follow Up Appt 2 months Follow Up Appt 2 months [facility] Work Phone: Start: 12-07-2016 End: 12-14-2016 Pulmonary Function Test - complete Pulmonary Function Test - complete [facility] Work Phone: Start: 12-07-2016 End: 12-14-2016 Pulmonary stress test/simple Pulmonary stress testing; simple (eg, 6-minute walk) [facility] Work Phone: Start: 12-07-2016 End: 12-14-2016 *MISC - Miscellaneous Lab Test #1 *MISC - Miscellaneous Lab Test #1 [facility] Work Phone: Start: 12-07-2016 End: 12-14-2016 [facility] Work Phone: Start: 12-07-2016 End: 12-14-2016 Follow Up Appt 2 months Follow Up Appt 2 months [facility] Work Phone: Start: 12-07-2016 End: 12-14-2016 Pulmonary Function Test - complete Pulmonary Function Test - complete [facility] Work Phone: Start: 12-07-2016 End: 12-14-2016 Pulmonary stress test/simple Pulmonary stress testing; simple (eg, 6-minute walk) [facility] Work Phone: Start: 10-18-2016 End: 10-18-2016 Appointment Appointment [facility] Work Phone: Start: 10-18-2016 End: 10-18-2016 Follow Up Appt 6 months Follow Up Appt 6 months [facility] Work Phone: Start: 10-18-2016 End: 10-18-2016 MMM MMM [facility] Work Phone: Start: 10-18-2016 End: 10-18-2016 Follow Up Appt 6 months Follow Up Appt 6 months [facility] Work Phone: Start: 10-18-2016 End: 10-18-2016 MMM MMM [facility] Work Phone: Start: 04-06-2016 End: 04-06-2016 RESEARCH CONTRACTS SUPERVISOR RESEARCH CONTRACTS SUPERVISOR [facility] Work Phone: Start: 04-06-2016 End: 04-06-2016 Follow Up Appt 6 months Follow Up Appt 6 months [facility] Work Phone: Start: 04-06-2016 End: 04-06-2016 RESEARCH CONTRACTS SUPERVISOR RESEARCH CONTRACTS SUPERVISOR [facility] Work Phone: Start: 04-06-2016 End: 04-06-2016 Follow Up Appt 6 months Follow Up Appt 6 months [facility] Work Phone: Start: 10-04-2015 End: 10-04-2015 Ecg routine ecg w/least 12 lds w/i&r EKG (In office) [facility] Work Phone: Start: 10-04-2015 End: 10-04-2015 Follow Up Appt 6 months Follow Up Appt 6 months [facility] Work Phone: Start: 10-04-2015 End: 10-04-2015 MMM MMM [facility] Work Phone: Start: 10-04-2015 End: 10-04-2015 Electrocardiogram, complete EKG (In office) [facility] Work Phone: Start: 10-04-2015 End: 10-04-2015 Follow Up Appt 6 months Follow Up Appt 6 months [facility] Work Phone: Start: 10-04-2015 End: 10-04-2015 MMM MMM [facility] Work Phone: Start: 05-11-2015 End: 05-16-2015 *BMP *BMP [facility] Work Phone: Start: 05-11-2015 End: 05-16-2015 *BMP *BMP [facility] Work Phone: Start: 03-30-2015 End: 03-31-2015 Ambulatory BP Monitor 24 HR Ambulatory BP Monitor 24 HR [facility] Work Phone: Start: 03-30-2015 End: 03-30-2015 RESEARCH CONTRACTS SUPERVISOR RESEARCH CONTRACTS SUPERVISOR [facility] Work Phone: Start: 03-30-2015 End: 03-30-2015 Follow Up Appt 6 months Follow Up Appt 6 months [facility] Work Phone: Start: 03-30-2015 End: 03-30-2015 Follow Up BP Check Follow Up BP Check [facility] Work Phone: Start: 03-30-2015 End: 03-31-2015 Ambulatory BP Monitor 24 HR Ambulatory BP Monitor 24 HR [facility] Work Phone: Start: 03-30-2015 End: 03-30-2015 RESEARCH CONTRACTS SUPERVISOR RESEARCH CONTRACTS SUPERVISOR [facility] Work Phone: Start: 03-30-2015 End: 03-30-2015 Follow Up Appt 6 months Follow Up Appt 6 months [facility] Work Phone: Start: 03-30-2015 End: 03-30-2015 Follow Up BP Check Follow Up BP Check [facility] Work Phone: Start: 02-09-2015 End: 02-09-2015 Fungus culture *CUF - Culture, Fungus (Only) [id number] [facility] Work Phone: Start: 02-09-2015 End: 02-09-2015 Fungus culture *CUF - Culture, Fungus (Only) [id number] Work Phone: Start: 09-28-2014 End: 09-30-2014 *Hepatic Function Panel *Hepatic Function Panel [facility] Work Phone: Start: 09-28-2014 End: 09-28-2014 Follow Up Appt 6 months Follow Up Appt 6 months [facility] Work Phone: Start: 09-28-2014 End: 09-28-2014 MMM MMM [facility] Work Phone: Start: 09-28-2014 End: 09-30-2014 Thyroid stimulating hormone (TSH) *TSH [facility] Work Phone: Start: 09-28-2014 End: 09-30-2014 Thyroxine (T4) *T4 (Total) [facility] Work Phone: Start: 09-28-2014 End: 09-30-2014 *Hepatic Function Panel *Hepatic Function Panel [facility] Work Phone: Start: 09-28-2014 End: 09-28-2014 Follow Up Appt 6 months Follow Up Appt 6 months [facility] Work Phone: Start: 09-28-2014 End: 09-28-2014 MMM MMM [facility] Work Phone: Start: 09-28-2014 End: 09-30-2014 Thyroid stimulating hormone (TSH) *TSH [facility] Work Phone: Start: 09-28-2014 End: 09-30-2014 Thyroxine (T4) *T4 (Total) [facility] Work Phone: Start: 08-16-2014 End: 08-16-2014 RESEARCH CONTRACTS SUPERVISOR RESEARCH CONTRACTS SUPERVISOR [facility] Work Phone: Start: 08-16-2014 End: 08-16-2014 Follow Up Appt 6 weeks Follow Up Appt 6 weeks [facility] Work Phone: Start: 08-16-2014 End: 08-16-2014 Pulmonary Function Test - complete Pulmonary Function Test - complete [facility] Work Phone: Start: 08-16-2014 End: 08-16-2014 RESEARCH CONTRACTS SUPERVISOR RESEARCH CONTRACTS SUPERVISOR [facility] Work Phone: Start: 08-16-2014 End: 08-16-2014 Follow Up Appt 6 weeks Follow Up Appt 6 weeks [facility] Work Phone: Start: 08-16-2014 End: 08-16-2014 Pulmonary Function Test - complete Pulmonary Function Test - complete [facility] Work Phone: Start: 07-23-2014 End: 07-23-2014 Radiologic examination pelvis 1/2 views X-Ray, Pelvis [facility] Work Phone: Start: 07-23-2014 End: [...] 05-18-2014 *Hepatic Function Panel *Hepatic Function Panel [facility] Work Phone: Start: 05-18-2014 End: 05-18-2014 CBC W Auto Differential panel - Blood *CBC without Diff [facility] Work Phone: Start: 05-18-2014 End: 08-10-2014 Chest x-ray X-Ray, Chest, PA & Lateral [facility] Work Phone: Start: 05-18-2014 End: 05-18-2014 Ecg routine ecg w/least 12 lds w/i&r EKG (In office) [facility] Work Phone: Start: 05-18-2014 End: 05-18-2014 Follow Up Appt 3 months Follow Up Appt 3 months [facility] Work Phone: Start: 05-18-2014 End: 05-18-2014 Left Heart Cath Left Heart Cath [facility] Work Phone: Start: 05-18-2014 End: 05-18-2014 MMM MMM [facility] Work Phone: Start: 05-18-2014 End: 05-18-2014 Thyroid stimulating hormone (TSH) *TSH [facility] Work Phone: Start: 05-18-2014 End: 05-18-2014 Thyroxine (T4) *T4 (Total) [facility] Work Phone: Start: 05-18-2014 End: 05-18-2014 *BMP *BMP [facility] Work Phone: Start: 05-18-2014 End: 05-18-2014 *Hepatic Function Panel *Hepatic Function Panel [facility] Work Phone: Start: 05-18-2014 End: 05-18-2014 CBC W Auto Differential panel - Blood *CBC without Diff [facility] Work Phone: Start: 05-18-2014 End: 08-10-2014 Chest x-ray X-Ray, Chest, PA & Lateral [facility] Work Phone: Start: 05-18-2014 End: 05-18-2014 Electrocardiogram, complete EKG (In office) [facility] Work Phone: Start: 05-18-2014 End: 05-18-2014 Follow Up Appt 3 months Follow Up Appt 3 months [facility] Work Phone: Start: 05-18-2014 End: 05-18-2014 Left Heart Cath Left Heart Cath [facility] Work Phone: Start: 05-18-2014 End: 05-18-2014 MMM MMM [facility] Work Phone: Start: 05-18-2014 End: 05-18-2014 Thyroid stimulating hormone (TSH) *TSH [facility] Work Phone: Start: 05-18-2014 End: 05-18-2014 Thyroxine (T4) *T4 (Total) [facility] Work Phone: Start: 11-19-2013 End: 11-19-2013 RESEARCH CONTRACTS SUPERVISOR RESEARCH CONTRACTS SUPERVISOR [facility] Work Phone: Start: 11-19-2013 End: 11-19-2013 Follow Up Appt 6 months Follow Up Appt 6 months [facility] Work Phone: Start: 11-19-2013 End: 11-19-2013 Follow Up Appt Other Follow Up Appt Other [facility] Work Phone: Start: 11-19-2013 End: 11-19-2013 RESEARCH CONTRACTS SUPERVISOR RESEARCH CONTRACTS SUPERVISOR [facility] Work Phone: Start: 11-19-2013 End: 11-19-2013 Follow Up Appt 6 months Follow Up Appt 6 months [facility] Work Phone: Start: 11-19-2013 End: 11-19-2013 Follow Up Appt Other Follow Up Appt Other [facility] Work Phone: Start: 08-21-2013 End: 08-21-2013 Follow Up Appt 3 months Follow Up Appt 3 months [facility] Work Phone: Start: 08-21-2013 End: 08-21-2013 MMM MMM [facility] Work Phone: Start: 08-21-2013 End: 08-21-2013 Follow Up Appt 3 months Follow Up Appt 3 months [facility] Work Phone: Start: 08-21-2013 End: 08-21-2013 MMM MMM [facility] Work Phone: Start: 08-11-2013 End: 08-11-2013 Follow Up Appt Other Follow Up Appt Other [facility] Work Phone: Start: 08-11-2013 End: 08-11-2013 Follow Up Appt Other Follow Up Appt Other [facility] Work Phone: Start: 07-03-2013 End: 08-11-2013 Ecg routine ecg w/least 12 lds w/i&r EKG (In office) [facility] Work Phone: Start: 07-02-2013 End: 07-03-2013 *BMP *BMP [facility] Work Phone: Start: 07-02-2013 End: 07-03-2013 *CBC with Differential *CBC with Differential [facility] Work Phone: Start: 07-02-2013 End: 07-03-2013 BNP *Brain Natriuretic Peptide BNP [facility] Work Phone: Start: 07-02-2013 End: 07-02-2013 Cardioversion Cardioversion [facility] Work Phone: Start: 07-02-2013 End: 08-11-2013 Electrocardiogram, complete EKG (In office) [facility] Work Phone: Start: 07-02-2013 End: [...] End: 07-03-2013 BNP *Brain Natriuretic Peptide BNP [facility] Work Phone: Start: 07-02-2013 End: 07-02-2013 Cardioversion Cardioversion [facility] Work Phone: Start: 07-02-2013 End: 07-02-2013 Electrocardiogram, complete EKG (In office) [facility] Work Phone: Start: 07-02-2013 End: 08-11-2013 Follow Up Appt 2 months Follow Up Appt 2 months [facility] Work Phone: Start: 07-02-2013 End: 08-11-2013 MMM MMM [facility] Work Phone: Start: 05-05-2013 End: 05-05-2013 Follow Up Appt 6 months Follow Up Appt 6 months [facility] Work Phone: Start: 05-05-2013 End: 05-05-2013 MMM MMM [facility] Work Phone: Start: 05-05-2013 End: 05-05-2013 Follow Up Appt 6 months Follow Up Appt 6 months [facility] Work Phone: Start: 05-05-2013 End: 05-05-2013 MMM MMM [facility] Work Phone: Start: 03-19-2013 End: 03-19-2013 RESEARCH CONTRACTS SUPERVISOR RESEARCH CONTRACTS SUPERVISOR [facility] Work Phone: Start: 03-19-2013 End: 03-19-2013 Follow Up Appt 4 months Follow Up Appt 4 months [facility] Work Phone: Start: 03-19-2013 End: 03-19-2013 Nuclear stress test -exercise Nuclear stress test -exercise [facility] Work Phone: Start: 03-19-2013 End: 03-19-2013 RESEARCH CONTRACTS SUPERVISOR RESEARCH CONTRACTS SUPERVISOR [facility] Work Phone: Start: 03-19-2013 End: [...] 07-03-2013 Urine culture, bacteria *C&S, Routine Bacteria [facility] Work Phone: Summary Purpose Family [...] BE BASED ON THE PRIMARY CLINICAL RECORDS. [facility]. provides no warranty or guarantee of the accuracy or completeness of information in this document.
[2023-03-26 08:10] VITALS: BP 119/51; PULSE 93; RESP 22; O2SAT 95
[2023-03-26] MEDS: Lidocaine 2% (20 ml mdv) 20 ML Vial INFILT (08:14)
[2023-03-26 08:17] VITALS: BP 118/61; PULSE 97; RESP 22; O2SAT 98
[2023-03-26 08:22] VITALS: BP 114/51; PULSE 104; RESP 18; O2SAT 95
--- NOTE | 2023-03-26 08:22 | RAD_ITS ---
STUDY: X-RAY CHEST REASON FOR EXAM: Female, 83 years old. Post thoracentesis TECHNIQUE: AP inspiration and expiration views. COMPARISON: Comparison is made with prior study dated March 15, 2023. FINDINGS: The patient is status post left thoracentesis. There is no evidence of pneumothorax. RAD/Chest Insp/Exp 2 View IMPRESSION: No evidence of pneumothorax on the images following the left thoracentesis. Electronically Signed: Huey Gomez MD at 8:47 EST ,
[2023-03-26 08:29] VITALS: BP 111/69; PULSE 10; RESP 18; O2SAT 97
--- NOTE | 2023-03-26 09:21 | PCM.OP.PRO ---
Procedure Report Date of Procedure: 03/26/23 Assessment & Plan Assessment/Plan (1) Pleural effusion, left: PLAN: PROCEDURE: Ultrasound Guided Thoracentesis ORDERING PROVIDER: Dr. Douglas INDICATION: Female, 83 years old. Recurrent left pleural effusion. PROVIDER: ANAMIKA Bravo PROCEDURE: The risks, benefits, and alternatives to the procedure were explained to the patient. The specific risks of bleeding, infection, and pneumothorax requiring chest tube insertion were discussed and accepted. Written informed consent was obtained. The patient was placed in the sitting, upright position. Ultrasonographic evaluation of the bilateral lower pleural spaces was carried out. An adequate pocket was identified in the left lower pleural space.The overlying skin was prepped and draped in sterile fashion. 2% lidocaine was administered subcutaneously for local anesthesia. Under ultrasound guidance, a 5-[place] thoracentesis needle/catheter system was advanced into the left posterior lower pleural fluid collection. 1650 ml of clear yellow colored fluid was drained. The catheter was removed, and a sterile dressing was applied. The patient tolerated the procedure well. A chest x-ray was ordered. IMPRESSION: Successful ultrasound-guided thoracentesis of left pleural effusion. Procedures Radiology Radiology US Procedures: 61742 Thoracentesis
== END | disposition home or self-care (01) ==
PROVIDERS: PCP Family Medicine Geriatric Medicine; Referring Provider Family Medicine Geriatric Medicine; Visit Provider Family Medicine Geriatric Medicine
DX: J90 Pleural effusion, not elsewhere classified (principal)
CPT/HCPCS: 32555; 71046

== ENCOUNTER → 2023-04-05 | Outpatient (CLI) | payer MEDICARE, OTHER, SELFPAY ==
--- OUTSIDE RECORDS SUMMARY | 2023-04-05 13:47 | XMS RPT_ITS | CCD ---
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, Chad Aden Unavailable Vijaya Arshad Unavailable Unavailable [...] (14 sources) amLODIPine drug allergy 6 constipation [facility] Work Phone: [phone] (14 sources) ascorbic acid / beta carotene / cuprous oxide / vitamin E / zinc oxide drug allergy 6 rash [facility] Work Phone: [phone] (14 sources) doxazosin drug allergy 6 lightheadedness [facility] Work Phone: [phone] (14 sources) fish oil drug allergy 6 rash [facility] Work Phone: [phone] (20 sources) Sulfonamides (Antibiotic) drug allergy 9 Unknown, had a reaction when she was 5 y/o [facility] Work Phone: [phone] (14 sources) OXYBUT drug allergy 6 rash [facility] Work Phone: Medications Completed/Discontinued Medications Medication Drug Class(es) Dates Sig (Normalized) Sig (Original) 200 actuat albuterol 0.09 mg/actuat metered dose inhaler (9 sources) beta2-Adrenergic Agonist Start: 11-16-2016 PROAIR HFA 108 (90 Base) MCG/ACT AERS Two inh every 4 hrs as needed ALBUTEROL SULFATE [id number] Pat Pa Problems Active Problems Problem Classification [...] 40.74 kg/m2 Rina Patel [facility] Work Phone: 01-16-2017 06:47-0400 Body Temperature 98.8 [degF] Rina Patel [facility] Work Phone: 01-16-2017 06:47-0400 BP Diastolic 70 mm[Hg] Rina Patel [facility] Work Phone: 01-16-2017 06:47-0400 BP Systolic 124 mm[Hg] Rina Patel [facility] Work Phone: 01-16-2017 06:47-0400 Height 172.09 cm Rina Patel [facility] Work Phone: 01-16-2017 06:47-0400 Pulse (Heart Rate) 57 /min Rina Patel [facility] Work Phone: 01-16-2017 06:47-0400 Respiratory Rate 18 /min Rina Patel [facility] Work Phone: 01-16-2017 06:47-0400 Weight 120.66 kg Rina Patel [facility] Work Phone: 12-17-2016 10:51-0400 Heart rate 47 [...] 11:13-0400 BMI (Body Mass Index) 42.73 kg/m2 [facility] Work Phone: 12-07-2016 11:13-0400 Body Temperature 98.8 [degF] [facility] Work Phone: 12-07-2016 11:13-0400 BP Diastolic 69 mm[Hg] Pat Thierno [facility] Work Phone: 12-07-2016 11:13-0400 BP Systolic 173 mm[Hg] Pat Thierno [facility] Work Phone: 12-07-2016 11:13-0400 Height 172.09 cm [facility] Work Phone: 12-07-2016 11:13-0400 Pulse (Heart Rate) 51 /min [facility] Work Phone: 12-07-2016 11:13-0400 Respiratory Rate 18 /min [facility] Work Phone: 12-07-2016 11:13-0400 Weight 126.55 kg [...] Mass Index) 41.41 kg/m2 Natalie Rehman RN [facility] Work Phone: 04-06-2016 13:35-0500 BP [...] Heart rate 466 ms Mariam Amaral RN [facility] Work Phone: Procedures Date Procedure Procedure Detail Performing Clinician Start: 12-31-2016 End: 01-03-2017 *BMP Chad Woodard BED SETTER Work Phone: Start: 12-17-2016 End: 12-17-2016 Ecg routine ecg w/least 12 lds w/i&r Chad Woodard BED SETTER Work Phone: Start: 12-07-2016 End: 12-14-2016 *MISC - Miscellaneous Lab Test #1 Bessy Galan CNP Work Phone: Start: 12-07-2016 End: 12-14-2016 DMB Bessy Galan BARK FITTER Work Phone: Start: 12-07-2016 End: 12-14-2016 Follow Up Appt 2 months Bessy vallejo BARK [employer]TER Work Phone: Start: 12-07-2016 End: 12-14-2016 Pulmonary Function Test - complete Bessy Galan BARK [employer]TER Work Phone: Start: 12-07-2016 End: 12-14-2016 Pulmonary stress test/simple Bessy Galan BARK [employer]TER Work Phone: Start: 12-07-2016 End: 12-07-2016 Dietary management education, guidance, and counseling Pat Pa Start: 12-07-2016 End: 12-14-2016 *MISC - Miscellaneous Lab Test #1 Bessy Galan BARK FITTER Work Phone: Start: 12-07-2016 End: 12-14-2016 DMB Bessy Galan BARK FITTER Work Phone: Start: 12-07-2016 End: 12-14-2016 Follow Up Appt 2 months Bessy Mahoney Marlene genevieve BARK FITTER Work Phone: Start: 12-07-2016 End: 12-14-2016 Pulmonary Function Test - complete Bessy Galan BARK FITTER Work Phone: Start: 12-07-2016 End: 12-14-2016 Pulmonary stress test/simple Bessy Galan BARK FITTER Work Phone: Start: 10-18-2016 End: 10-18-2016 Follow Up Appt 6 months Wei Adamson Start: 10-18-2016 End: 10-18-2016 SEB Tesfaye MD Start: 10-18-2016 End: 10-18-2016 Follow Up Appt 6 months Wei Adamson Start: 10-18-2016 End: 10-18-2016 SEB Tesfaye MD Start: 04-06-2016 End: 04-06-2016 LDUMILA Hagen PA-C Work Phone: Start: 04-06-2016 End: [...] PA-C Work Phone: Start: 03-30-2015 End: 03-30-2015 PLATE CORRECTOR Mitali Hagen PA-C Work Phone: Start: 03-30-2015 End: 03-30-2015 Follow Up Appt 6 months Mitali Hagen PA-C Work Phone: Start: 03-30-2015 End: 03-30-2015 Follow Up BP Check Mitali Hagen PA-C Work Phone: Start: 03-30-2015 End: 04-03-2016 Ambulatory BP Monitor 24 HR Mitali Hagen PA-C Work Phone: Start: 03-30-2015 End: 03-30-2015 PLATE CORRECTOR Mitali Hagen PA-C Work Phone: Start: 03-30-2015 End: 03-30-2015 Follow Up Appt 6 months Mitali Hagen PA-C Work Phone: Start: 03-30-2015 End: 03-30-2015 Follow Up BP Check Mitali Hgaen PA-C Work Phone: Start: 02-09-2015 End: 02-09-2015 [...] Roosevelt Tesfaye MD Start: 08-16-2014 End: 08-16-2014 PLATE CORRECTOR Mitali Hagen PA-C Work Phone: Start: 08-16-2014 End: 08-17-2014 Documentation of current medications Mitali Hagen PA-C Work Phone: Start: 08-16-2014 End: 08-16-2014 Follow Up Appt 6 weeks Mitali Hagen PA-C Work Phone: Start: 08-16-2014 End: 08-27-2014 Pulmonary Function Test - complete Mitali Hagen PA-C Work Phone: Start: 08-16-2014 End: 08-16-2014 PLATE CORRECTOR Mitali Hagen PA-C Work Phone: Start: 08-16-2014 [...] MMWei Tesfaye MD Start: 03-19-2013 End: 03-19-2013 PLATE CORRECTOR KELLEY SolitarioC Work Phone: Start: 03-19-2013 End: 03-19-2013 Follow Up Appt 4 months Mitali Hagen PA-C Work Phone: Start: 03-19-2013 End: 08-11-2013 Nuclear stress test -exercise Mitali Hagen PA-C Work Phone: Start: 03-19-2013 End: 03-19-2013 PLATE CORRECTOR Mitali Hagen PA-C Work Phone: Start: 03-19-2013 [...] Phone: Start: 05-02-2017 End: 05-02-2017 Appointment Appointment [facility] Work Phone: Start: 01-30-2017 End: 01-30-2017 Appointment Appointment [facility] Work Phone: Start: 01-16-2017 End: 01-16-2017 [facility] Work Phone: Start: 01-16-2017 End: 01-16-2017 Follow Up Appt 6 months Follow Up Appt 6 months [facility] Work Phone: Start: 01-16-2017 End: 01-16-2017 Appointment Appointment [facility] Work Phone: Start: 12-31-2016 End: 01-03-2017 *BMP *BMP [facility] Work Phone: Start: 12-31-2016 End: 12-17-2016 *BMP *BMP [facility] Work Phone: Start: 12-17-2016 End: 12-17-2016 Appointment Appointment [facility] Work Phone: Start: 12-07-2016 End: 12-07-2016 Appointment Appointment [facility] Work Phone: Start: 12-07-2016 End: 12-14-2016 *MISC - Miscellaneous Lab Test #1 *MISC - Miscellaneous Lab Test #1 [facility] Work Phone: Start: 12-07-2016 End: 12-14-2016 [facility] Work Phone: Start: 12-07-2016 End: 12-14-2016 Follow Up Appt 2 months Follow Up Appt 2 months [facility] Work Phone: Start: 12-07-2016 End: 12-14-2016 Pulmonary [...] Start: 12-07-2016 End: 12-14-2016 [facility] Work Phone: Start: 12-07-2016 End: 12-14-2016 Follow Up Appt 2 months Follow Up Appt 2 months [facility] Work Phone: Start: 12-07-2016 End: 12-14-2016 Pulmonary Function Test - complete Pulmonary Function Test - complete [facility] Work Phone: Start: 12-07-2016 End: 12-14-2016 Pulmonary stress test/simple Pulmonary stress testing; simple (eg, 6-minute walk) [facility] Work Phone: Start: 10-18-2016 End: 10-18-2016 Appointment Appointment [facility] Work Phone: Start: 10-18-2016 End: 10-18-2016 Follow Up Appt 6 months Follow Up Appt 6 months [facility] Work Phone: Start: 10-18-2016 End: 10-18-2016 MMM MMM [facility] Work Phone: Start: 10-18-2016 End: 10-18-2016 Follow Up Appt 6 months Follow Up Appt 6 months [facility] Work Phone: Start: 10-18-2016 End: 10-18-2016 MMM MMM [facility] Work Phone: Start: 04-06-2016 End: 04-06-2016 PLATE CORRECTOR PLATE CORRECTOR [facility] Work Phone: Start: 04-06-2016 End: 04-06-2016 Follow Up Appt 6 months Follow Up Appt 6 months [facility] Work Phone: Start: 04-06-2016 End: 04-06-2016 PLATE CORRECTOR PLATE CORRECTOR [facility] Work Phone: Start: 04-06-2016 End: 04-06-2016 Follow Up Appt 6 months Follow Up Appt 6 months [facility] Work Phone: Start: 10-04-2015 End: 10-04-2015 Ecg routine ecg w/least 12 lds w/i&r EKG (In office) [facility] Work Phone: Start: 10-04-2015 End: 10-04-2015 Follow Up Appt 6 months Follow Up Appt 6 months [facility] Work Phone: Start: 10-04-2015 End: 10-04-2015 MMM MMM [facility] Work Phone: Start: 10-04-2015 End: 10-04-2015 Electrocardiogram, complete EKG (In office) [facility] Work Phone: Start: 10-04-2015 End: 10-04-2015 Follow Up Appt 6 months Follow Up Appt 6 months [facility] Work Phone: Start: 10-04-2015 End: 10-04-2015 MMM MMM [facility] Work Phone: Start: 05-11-2015 End: 05-16-2015 *BMP *BMP [facility] Work Phone: Start: 05-11-2015 End: 05-16-2015 *BMP *BMP [facility] Work Phone: Start: 03-30-2015 End: 03-31-2015 Ambulatory BP Monitor 24 HR Ambulatory BP Monitor 24 HR [facility] Work Phone: Start: 03-30-2015 End: 03-30-2015 PLATE CORRECTOR PLATE CORRECTOR [facility] Work Phone: Start: 03-30-2015 End: 03-30-2015 Follow Up Appt 6 months Follow Up Appt 6 months [facility] Work Phone: Start: 03-30-2015 End: 03-30-2015 Follow Up BP Check Follow Up BP Check [facility] Work Phone: Start: 03-30-2015 End: 03-31-2015 Ambulatory BP Monitor 24 HR Ambulatory BP Monitor 24 HR [facility] Work Phone: Start: 03-30-2015 End: 03-30-2015 PLATE CORRECTOR PLATE CORRECTOR [facility] Work Phone: Start: 03-30-2015 End: 03-30-2015 Follow Up Appt 6 months Follow Up Appt 6 months [facility] Work Phone: Start: 03-30-2015 End: 03-30-2015 Follow Up BP Check Follow Up BP Check [facility] Work Phone: Start: 02-09-2015 End: 02-09-2015 Fungus culture *CUF - Culture, Fungus (Only) [id number] [facility] Work Phone: Start: 02-09-2015 End: 02-09-2015 Fungus culture *CUF - Culture, Fungus (Only) [id number] [facility] Work Phone: Start: 09-28-2014 End: 09-30-2014 *Hepatic Function Panel *Hepatic Function Panel [facility] Work Phone: Start: 09-28-2014 End: 09-28-2014 Follow Up Appt 6 months Follow Up Appt 6 months [facility] Work Phone: Start: 09-28-2014 End: 09-28-2014 MMM MMM [facility] Work Phone: Start: 09-28-2014 End: 09-30-2014 Thyroid stimulating hormone (TSH) *TSH [facility] Work Phone: Start: 09-28-2014 End: 09-30-2014 Thyroxine (T4) *T4 (Total) [facility] Work Phone: Start: 09-28-2014 End: 09-30-2014 *Hepatic Function Panel *Hepatic Function Panel [facility] Work Phone: Start: 09-28-2014 End: 09-28-2014 Follow Up Appt 6 months Follow Up Appt 6 months [facility] Work Phone: Start: 09-28-2014 End: 09-28-2014 MMM MMM [facility] Work Phone: Start: 09-28-2014 End: 09-30-2014 Thyroid stimulating hormone (TSH) *TSH [facility] Work Phone: Start: 09-28-2014 End: 09-30-2014 Thyroxine (T4) *T4 (Total) [facility] Work Phone: Start: 08-16-2014 End: 08-16-2014 PLATE CORRECTOR PLATE CORRECTOR [facility] Work Phone: Start: 08-16-2014 End: 08-16-2014 Follow Up Appt 6 weeks Follow Up Appt 6 weeks [facility] Work Phone: Start: 08-16-2014 End: 08-16-2014 Pulmonary Function Test - complete Pulmonary Function Test - complete [facility] Work Phone: Start: 08-16-2014 End: 08-16-2014 PLATE CORRECTOR PLATE CORRECTOR [facility] Work Phone: Start: 08-16-2014 End: 08-16-2014 Follow Up Appt 6 weeks Follow Up Appt 6 weeks [facility] Work Phone: Start: 08-16-2014 End: 08-16-2014 Pulmonary Function Test - complete Pulmonary Function Test - complete [facility] Work Phone: Start: 07-23-2014 End: 07-23-2014 Radiologic examination pelvis 1/2 views X-Ray, Pelvis [facility] Work Phone: Start: 07-23-2014 End: 07-23-2014 X-ray exam of hip X-Ray, Hip Unilateral [facility] Work Phone: Start: 07-23-2014 End: 07-23-2014 X-ray exam of hip X-Ray, Hip Unilateral [facility] Work Phone: Start: 07-23-2014 End: 07-23-2014 X-ray exam of pelvis X-Ray, Pelvis [facility] Work Phone: Start: 05-18-2014 End: 05-18-2014 *BMP *BMP [facility] Work Phone: Start: 05-18-2014 End: 05-18-2014 *Hepatic Function Panel *Hepatic Function Panel [facility] Work Phone: Start: 05-18-2014 [...] 3 months Follow Up Appt 3 months [facility] Work Phone: Start: 05-18-2014 End: 05-18-2014 Left Heart Cath Left Heart Cath [facility] Work Phone: Start: 05-18-2014 End: 05-18-2014 MMM MMM [facility] Work Phone: Start: 05-18-2014 End: 05-18-2014 Thyroid stimulating hormone (TSH) *TSH [facility] Work Phone: Start: 05-18-2014 End: 05-18-2014 Thyroxine (T4) *T4 (Total) [facility] Work Phone: Start: 05-18-2014 End: 05-18-2014 *BMP *BMP [facility] Work Phone: Start: 05-18-2014 End: 05-18-2014 *Hepatic Function Panel *Hepatic Function Panel [facility] Work Phone: Start: 05-18-2014 End: 05-18-2014 CBC W Auto Differential panel - Blood *CBC without Diff [facility] Work Phone: Start: 05-18-2014 End: 08-10-2014 Chest x-ray X-Ray, Chest, PA & Lateral [facility] Work Phone: Start: 05-18-2014 End: 05-18-2014 Electrocardiogram, complete EKG (In office) [facility] Work Phone: Start: 05-18-2014 End: 05-18-2014 Follow Up Appt 3 months Follow Up Appt 3 months [facility] Work Phone: Start: 05-18-2014 End: 05-18-2014 Left Heart Cath Left Heart Cath [facility] Work Phone: Start: 05-18-2014 End: 05-18-2014 MMM MMM [facility] Work Phone: Start: 05-18-2014 End: 05-18-2014 Thyroid stimulating hormone (TSH) *TSH [facility] Work Phone: Start: 05-18-2014 End: 05-18-2014 Thyroxine (T4) *T4 (Total) [facility] Work Phone: Start: 11-19-2013 End: 11-19-2013 PLATE CORRECTOR PLATE CORRECTOR [facility] Work Phone: Start: 11-19-2013 End: 11-19-2013 Follow Up Appt 6 months Follow Up Appt 6 months [facility] Work Phone: Start: 11-19-2013 End: 11-19-2013 Follow Up Appt Other Follow Up Appt Other [facility] Work Phone: Start: 11-19-2013 End: 11-19-2013 PLATE CORRECTOR PLATE CORRECTOR [facility] Work Phone: Start: 11-19-2013 End: 11-19-2013 Follow Up Appt 6 months Follow Up Appt 6 months [facility] Work Phone: Start: 11-19-2013 End: 11-19-2013 Follow Up Appt Other Follow Up Appt Other [facility] Work Phone: Start: 08-21-2013 End: 08-21-2013 Follow Up Appt 3 months Follow Up Appt 3 months [facility] Work Phone: Start: 08-21-2013 End: 08-21-2013 MMM MMM [facility] Work Phone: Start: 08-21-2013 End: 08-21-2013 Follow Up Appt 3 months Follow Up Appt 3 months [facility] Work Phone: Start: 08-21-2013 End: 08-21-2013 MMM MMM [facility] Work Phone: Start: 08-11-2013 End: 08-11-2013 Follow Up Appt Other Follow Up Appt Other [facility] Work Phone: Start: 08-11-2013 End: 08-11-2013 Follow Up Appt Other Follow Up Appt Other [facility] Work Phone: Start: 07-03-2013 End: 08-11-2013 Ecg routine ecg w/least 12 lds w/i&r EKG (In office) [facility] Work Phone: Start: 07-02-2013 End: 07-03-2013 *BMP *BMP [facility] Work Phone: Start: 07-02-2013 End: 07-03-2013 *CBC with Differential *CBC with Differential [facility] Work Phone: Start: 07-02-2013 End: 07-03-2013 BNP *Brain Natriuretic Peptide BNP [facility] Work Phone: Start: 07-02-2013 End: 07-02-2013 Cardioversion Cardioversion [facility] Work Phone: Start: 07-02-2013 End: 08-11-2013 Electrocardiogram, complete EKG (In office) [facility] Work Phone: Start: 07-02-2013 End: [...] End: 07-02-2013 Electrocardiogram, complete EKG (In office) [facility] Work Phone: Start: 07-02-2013 End: 08-11-2013 Follow Up Appt 2 months Follow Up Appt 2 months [facility] Work Phone: Start: 07-02-2013 End: 08-11-2013 MMM MMM [facility] Work Phone: Start: 05-05-2013 End: 05-05-2013 Follow Up Appt 6 months Follow Up Appt 6 months [facility] Work Phone: Start: 05-05-2013 End: 05-05-2013 MMM MMM [facility] Work Phone: Start: 05-05-2013 End: 05-05-2013 Follow Up Appt 6 months Follow Up Appt 6 months [facility] Work Phone: Start: 05-05-2013 End: 05-05-2013 MMM MMM [facility] Work Phone: Start: 03-19-2013 End: 03-19-2013 PLATE CORRECTOR PLATE CORRECTOR [facility] Work Phone: Start: 03-19-2013 End: 03-19-2013 Follow Up Appt 4 months Follow Up Appt 4 months [facility] Work Phone: Start: 03-19-2013 End: 03-19-2013 Nuclear stress test -exercise Nuclear stress test -exercise [facility] Work Phone: Start: 03-19-2013 End: 03-19-2013 PLATE CORRECTOR PLATE CORRECTOR [facility] Work Phone: Start: 03-19-2013 End: 03-19-2013 Follow Up Appt 4 months Follow Up Appt 4 months [facility] Work Phone: Start: 03-19-2013 End: 03-19-2013 Nuclear stress test -exercise Nuclear stress test -exercise [facility] Work Phone: Start: 05-26-2012 End: 07-03-2013 Urine culture, bacteria *C&S, Routine Bacteria [facility] Work Phone: Start: 05-26-2012 End: 07-03-2013 Urine culture, bacteria *C&S, Routine Bacteria [facility] Work Phone: Summary Purpose Family [...] BE BASED ON THE PRIMARY CLINICAL RECORDS. [employer] [facility]. provides no warranty or guarantee of the accuracy or completeness of information in this document.
[2023-04-05 14:59] LABS: Albumin, Serum 2.7 g/dL (3.2-5.0); BUN 33 mg/dL (7-18); BUN/Creat Ratio 23.1 RATIO (10-20); Calcium,Total 9.1 mg/dL (8.5-10.1); Chloride 106 mmol/L (98-107); Creatinine, Serum 1.43 mg/dL (0.55-1.02); EST Glomerular Filtration Rate 37 mL/min (>60); Est Glom Filt Rate - Afr Amer 45 mL/min (>60); Glucose 242 mg/dL (74-106); Phosphorus 3.2 mg/dL (2.5-4.9); Potassium 4.9 mmol/L (3.5-5.1); Sodium Level 140 mmol/L (136-145)
[2023-04-05 15:01] LABS: PTHIN 125.3 pg/mL (18.4-80.1)
[2023-04-05 15:41] LABS: Microalbumin:Creatinine Ratio 770.4 mg/g CRE (<30 mg/g CRE); Protein, Urine (Random) 181.7 mg/dL (<11.9); Protein:Creat Ratio 1346 mg/g CRE (0-200)
== END | disposition home or self-care (01) ==
LOC: LAB 13:35
PROVIDERS: Physician Assistant Medical; PCP Family Medicine Geriatric Medicine; Referring Provider Internal Medicine Nephrology; Visit Provider Internal Medicine Nephrology
DX: E11.22 Type 2 diabetes mellitus with diabetic chronic kidney disease (principal); N25.81 Secondary hyperparathyroidism of renal origin; N18.32 Chronic kidney disease, stage 3b
CPT/HCPCS: 36415; 80069; 82043; 82570; 83970; 84156

== ENCOUNTER → 2023-04-15 | Outpatient (CLI) | payer MEDICARE, OTHER, SELFPAY ==
--- OUTSIDE RECORDS SUMMARY | 2023-04-15 11:46 | XMS RPT_ITS | CCD ---
Author Name Unknown Address [address] [place] [address] Organization [facility] Care Team Providers Care Assembler Wire Mesh Gate Name Role Phone Aj Baptiste Unavailable Unavailable Vijaya Arshad Unavailable Unavailable Pat Pa Unavailable Unavailable Roof INFORMATION ANALYST, Chad Aden Unavailable Vijaya Arshad Unavailable Unavailable [...] (14 sources) amLODIPine drug allergy 6 constipation [facility] Work Phone: [phone] (14 sources) ascorbic acid / beta carotene / cuprous oxide / vitamin E / zinc oxide drug allergy 6 rash [facility] Work Phone: [phone] (14 sources) doxazosin drug allergy 6 lightheadedness [facility] Work Phone: [phone] (14 sources) fish oil drug allergy 6 rash [facility] Work Phone: [phone] (20 sources) Sulfonamides (Antibiotic) drug allergy 9 Unknown, had a reaction when she was 5 y/o [facility] Work Phone: [phone] (14 sources) OXYBUT drug allergy 6 rash [facility] Work Phone: Medications Completed/Discontinued Medications Medication Drug Class(es) Dates Sig (Normalized) Sig (Original) 200 actuat albuterol 0.09 mg/actuat metered dose inhaler (9 sources) beta2-Adrenergic Agonist Start: 11-16-2016 PROAIR HFA 108 (90 Base) MCG/ACT AERS Two inh every 4 hrs as needed ALBUTEROL SULFATE [id number] Pat Pa Problems Active Problems Problem Classification [...] 40.74 kg/m2 Rina Patel [facility] Work Phone: 01-16-2017 06:47-0400 Body Temperature 98.8 [degF] Rina Patel [facility] Work Phone: 01-16-2017 06:47-0400 BP Diastolic 70 mm[Hg] Rina Patel [facility] Work Phone: 01-16-2017 06:47-0400 BP Systolic 124 mm[Hg] Rina Patel [facility] Work Phone: 01-16-2017 06:47-0400 Height 172.09 cm Rina Patel [facility] Work Phone: 01-16-2017 06:47-0400 Pulse (Heart Rate) 57 /min Rina Patel [facility] Work Phone: 01-16-2017 06:47-0400 Respiratory Rate 18 /min Rina Patel [facility] Work Phone: 01-16-2017 06:47-0400 Weight 120.66 kg Rina Patel [facility] Work Phone: 12-17-2016 10:51-0400 Heart rate 47 [...] 11:13-0400 BMI (Body Mass Index) 42.73 kg/m2 [facility] Work Phone: 12-07-2016 11:13-0400 Body Temperature 98.8 [degF] [facility] Work Phone: 12-07-2016 11:13-0400 BP Diastolic 69 mm[Hg] Pat Thierno [facility] Work Phone: 12-07-2016 11:13-0400 BP Systolic 173 mm[Hg] Pat Thierno [facility] Work Phone: 12-07-2016 11:13-0400 Height 172.09 cm [facility] Work Phone: 12-07-2016 11:13-0400 Pulse (Heart Rate) 51 /min [facility] Work Phone: 12-07-2016 11:13-0400 Respiratory Rate 18 /min [facility] Work Phone: 12-07-2016 11:13-0400 Weight 126.55 kg [...] Mass Index) 41.41 kg/m2 Natalie Rehman RN [facility] Work Phone: 04-06-2016 13:35-0500 BP [...] Heart rate 466 ms Mariam Amaral RN [facility] Work Phone: Procedures Date Procedure Procedure Detail Performing Clinician Start: 12-31-2016 End: 01-03-2017 *BMP Chad Woodard INFORMATION ANALYST Work Phone: Start: 12-17-2016 End: 12-17-2016 Ecg routine ecg w/least 12 lds w/i&r Chad Woodard INFORMATION ANALYST Work Phone: Start: 12-07-2016 End: 12-14-2016 *MISC - Miscellaneous Lab Test #1 Bessy Galan CNP Work Phone: Start: 12-07-2016 End: 12-14-2016 DMB Bessy Galan ACCELERATOR OPERATOR Work Phone: Start: 12-07-2016 End: 12-14-2016 Follow Up Appt 2 months Bessy vallejo ACCELERATOR OPERATOR Work Phone: Start: 12-07-2016 End: 12-14-2016 Pulmonary Function Test - complete Bessy Galan ACCELERATOR OPERATOR Work Phone: Start: 12-07-2016 End: 12-14-2016 Pulmonary stress test/simple Bessy Galan ACCELERATOR OPERATOR Work Phone: Start: 12-07-2016 End: 12-07-2016 Dietary management education, guidance, and counseling Pat Pa Start: 12-07-2016 End: 12-14-2016 *MISC - Miscellaneous Lab Test #1 Bessy Galan ACCELERATOR OPERATOR Work Phone: Start: 12-07-2016 End: 12-14-2016 DMB Bessy Galan ACCELERATOR OPERATOR Work Phone: Start: 12-07-2016 End: 12-14-2016 Follow Up Appt 2 months Bessy Mahoney Marlene genevieve ACCELERATOR OPERATOR Work Phone: Start: 12-07-2016 End: 12-14-2016 Pulmonary Function Test - complete Bessy Galan ACCELERATOR OPERATOR Work Phone: Start: 12-07-2016 End: 12-14-2016 Pulmonary stress test/simple Bessy Galan ACCELERATOR OPERATOR Work Phone: Start: 10-18-2016 End: 10-18-2016 Follow [...] PA-C Work Phone: Start: 03-30-2015 End: 03-30-2015 VICE PRESIDENT LENDING Mitali Hagen PA-C Work Phone: Start: 03-30-2015 End: 03-30-2015 Follow Up Appt 6 months Mitali Hagen PA-C Work Phone: Start: 03-30-2015 End: 03-30-2015 Follow Up BP Check Mitali Hagen PA-C Work Phone: Start: 03-30-2015 End: 04-03-2016 Ambulatory BP Monitor 24 HR Mitali Hagen PA-C Work Phone: Start: 03-30-2015 End: 03-30-2015 VICE PRESIDENT LENDING Mitali Hagen PA-C Work Phone: Start: 03-30-2015 [...] Roosevelt Tesfaye MD Start: 08-16-2014 End: 08-16-2014 VICE PRESIDENT LENDING Mitali Hagen PA-C Work Phone: Start: 08-16-2014 End: 08-17-2014 Documentation of current medications Mitali Hagen PA-C Work Phone: Start: 08-16-2014 End: 08-16-2014 Follow Up Appt 6 weeks Mitali Hagen PA-C Work Phone: Start: 08-16-2014 End: 08-27-2014 Pulmonary Function Test - complete Mitali Hagen PA-C Work Phone: Start: 08-16-2014 End: 08-16-2014 VICE PRESIDENT LENDING Mitali Hagen PA-C Work Phone: Start: 08-16-2014 [...] End: 08-11-2013 Follow Up Appt Other Mitali Hgaen PA-C Work Phone: Start: 07-03-2013 End: 08-11-2013 [...] MMWei Tesfaye MD Start: 03-19-2013 End: 03-19-2013 VICE PRESIDENT LENDING KELLEY [facility] Work Phone: Start: 03-19-2013 End: 03-19-2013 Follow Up Appt 4 months Mitali Hagen PA-C Work Phone: Start: 03-19-2013 End: 08-11-2013 Nuclear stress test -exercise Mitali Hagen PA-C Work Phone: Start: 03-19-2013 End: 03-19-2013 VICE PRESIDENT LENDING Mitali Hagen PA-C Work Phone: Start: 03-19-2013 [...] Phone: Start: 05-02-2017 End: 05-02-2017 Appointment Appointment [facility] Work Phone: Start: 01-30-2017 End: 01-30-2017 Appointment Appointment [facility] Work Phone: Start: 01-16-2017 End: 01-16-2017 [facility] Work Phone: Start: 01-16-2017 End: 01-16-2017 Follow Up Appt 6 months Follow Up Appt 6 months [facility] Work Phone: Start: 01-16-2017 End: 01-16-2017 Appointment Appointment [facility] Work Phone: Start: 12-31-2016 End: 01-03-2017 *BMP *BMP [facility] Work Phone: Start: 12-31-2016 End: 12-17-2016 *BMP *BMP [facility] Work Phone: Start: 12-17-2016 End: 12-17-2016 Appointment Appointment [facility] Work Phone: Start: 12-07-2016 End: 12-07-2016 Appointment Appointment [facility] Work Phone: Start: 12-07-2016 End: 12-14-2016 *MISC - Miscellaneous Lab Test #1 *MISC - Miscellaneous Lab Test #1 [facility] Work Phone: Start: 12-07-2016 End: 12-14-2016 [facility] Work Phone: Start: 12-07-2016 End: 12-14-2016 Follow Up Appt 2 months Follow Up Appt 2 months [facility] Work Phone: Start: 12-07-2016 End: 12-14-2016 Pulmonary [...] Start: 12-07-2016 End: 12-14-2016 [facility] Work Phone: Start: 12-07-2016 End: 12-14-2016 Follow Up Appt 2 months Follow Up Appt 2 months [facility] Work Phone: Start: 12-07-2016 End: 12-14-2016 Pulmonary Function Test - complete Pulmonary Function Test - complete [facility] Work Phone: Start: 12-07-2016 End: 12-14-2016 Pulmonary stress test/simple Pulmonary stress testing; simple (eg, 6-minute walk) [facility] Work Phone: Start: 10-18-2016 End: 10-18-2016 Appointment Appointment [facility] Work Phone: Start: 10-18-2016 End: 10-18-2016 Follow Up Appt 6 months Follow Up Appt 6 months [facility] Work Phone: Start: 10-18-2016 End: 10-18-2016 MMM MMM [facility] Work Phone: Start: 10-18-2016 End: 10-18-2016 Follow Up Appt 6 months Follow Up Appt 6 months [facility] Work Phone: Start: 10-18-2016 End: 10-18-2016 MMM MMM [facility] Work Phone: Start: 04-06-2016 End: 04-06-2016 VICE PRESIDENT LENDING VICE PRESIDENT LENDING [facility] Work Phone: Start: 04-06-2016 End: 04-06-2016 Follow Up Appt 6 months Follow Up Appt 6 months [facility] Work Phone: Start: 04-06-2016 End: 04-06-2016 VICE PRESIDENT LENDING VICE PRESIDENT LENDING [facility] Work Phone: Start: 04-06-2016 End: 04-06-2016 Follow Up Appt 6 months Follow Up Appt 6 months [facility] Work Phone: Start: 10-04-2015 End: 10-04-2015 Ecg routine ecg w/least 12 lds w/i&r EKG (In office) [facility] Work Phone: Start: 10-04-2015 End: 10-04-2015 Follow Up Appt 6 months Follow Up Appt 6 months [facility] Work Phone: Start: 10-04-2015 End: 10-04-2015 MMM MMM [facility] Work Phone: Start: 10-04-2015 End: 10-04-2015 Electrocardiogram, complete EKG (In office) [facility] Work Phone: Start: 10-04-2015 End: 10-04-2015 Follow Up Appt 6 months Follow Up Appt 6 months [facility] Work Phone: Start: 10-04-2015 End: 10-04-2015 MMM MMM [facility] Work Phone: Start: 05-11-2015 End: 05-16-2015 *BMP *BMP [facility] Work Phone: Start: 05-11-2015 End: 05-16-2015 *BMP *BMP [facility] Work Phone: Start: 03-30-2015 End: 03-31-2015 Ambulatory BP Monitor 24 HR Ambulatory BP Monitor 24 HR [facility] Work Phone: Start: 03-30-2015 End: 03-30-2015 VICE PRESIDENT LENDING VICE PRESIDENT LENDING [facility] Work Phone: Start: 03-30-2015 End: 03-30-2015 Follow Up Appt 6 months Follow Up Appt 6 months [facility] Work Phone: Start: 03-30-2015 End: 03-30-2015 Follow Up BP Check Follow Up BP Check [facility] Work Phone: Start: 03-30-2015 End: 03-31-2015 Ambulatory BP Monitor 24 HR Ambulatory BP Monitor 24 HR [facility] Work Phone: Start: 03-30-2015 End: 03-30-2015 VICE PRESIDENT LENDING VICE PRESIDENT LENDING [facility] Work Phone: Start: 03-30-2015 End: 03-30-2015 Follow Up Appt 6 months Follow Up Appt 6 months [facility] Work Phone: Start: 03-30-2015 End: 03-30-2015 Follow Up BP Check Follow Up BP Check [facility] Work Phone: Start: 02-09-2015 End: 02-09-2015 Fungus culture *CUF - Culture, Fungus (Only) [id number] [facility] Work Phone: Start: 02-09-2015 End: 02-09-2015 Fungus culture *CUF - Culture, Fungus (Only) [id number] [facility] Work Phone: Start: 09-28-2014 End: 09-30-2014 *Hepatic Function Panel *Hepatic Function Panel [facility] Work Phone: Start: 09-28-2014 End: 09-28-2014 Follow Up Appt 6 months Follow Up Appt 6 months [facility] Work Phone: Start: 09-28-2014 End: 09-28-2014 MMM MMM [facility] Work Phone: Start: 09-28-2014 End: 09-30-2014 Thyroid stimulating hormone (TSH) *TSH [facility] Work Phone: Start: 09-28-2014 End: 09-30-2014 Thyroxine (T4) *T4 (Total) [facility] Work Phone: Start: 09-28-2014 End: 09-30-2014 *Hepatic Function Panel *Hepatic Function Panel [facility] Work Phone: Start: 09-28-2014 End: 09-28-2014 Follow Up Appt 6 months Follow Up Appt 6 months [facility] Work Phone: Start: 09-28-2014 End: 09-28-2014 MMM MMM [facility] Work Phone: Start: 09-28-2014 End: 09-30-2014 Thyroid stimulating hormone (TSH) *TSH [facility] Work Phone: Start: 09-28-2014 End: 09-30-2014 Thyroxine (T4) *T4 (Total) [facility] Work Phone: Start: 08-16-2014 End: 08-16-2014 VICE PRESIDENT LENDING VICE PRESIDENT LENDING [facility] Work Phone: Start: 08-16-2014 End: 08-16-2014 Follow Up Appt 6 weeks Follow Up Appt 6 weeks [facility] Work Phone: Start: 08-16-2014 End: 08-16-2014 Pulmonary Function Test - complete Pulmonary Function Test - complete [facility] Work Phone: Start: 08-16-2014 End: 08-16-2014 VICE PRESIDENT LENDING VICE PRESIDENT LENDING [facility] Work Phone: Start: 08-16-2014 End: 08-16-2014 Follow Up Appt 6 weeks Follow Up Appt 6 weeks [facility] Work Phone: Start: 08-16-2014 End: 08-16-2014 Pulmonary Function Test - complete Pulmonary Function Test - complete [facility] Work Phone: Start: 07-23-2014 End: 07-23-2014 Radiologic examination pelvis 1/2 views X-Ray, Pelvis [facility] Work Phone: Start: 07-23-2014 End: 07-23-2014 X-ray exam of hip X-Ray, Hip Unilateral [facility] Work Phone: Start: 07-23-2014 End: 07-23-2014 X-ray exam of hip X-Ray, Hip Unilateral [facility] Work Phone: Start: 07-23-2014 End: 07-23-2014 X-ray exam of pelvis X-Ray, Pelvis [facility] Work Phone: Start: 05-18-2014 End: 05-18-2014 *BMP *BMP [facility] Work Phone: Start: 05-18-2014 End: 05-18-2014 *Hepatic Function Panel *Hepatic Function Panel [facility] Work Phone: Start: 05-18-2014 [...] 3 months Follow Up Appt 3 months [facility] Work Phone: Start: 05-18-2014 End: 05-18-2014 Left Heart Cath Left Heart Cath [facility] Work Phone: Start: 05-18-2014 End: 05-18-2014 MMM MMM [facility] Work Phone: Start: 05-18-2014 End: 05-18-2014 Thyroid stimulating hormone (TSH) *TSH [facility] Work Phone: Start: 05-18-2014 End: 05-18-2014 Thyroxine (T4) *T4 (Total) [facility] Work Phone: Start: 05-18-2014 End: 05-18-2014 *BMP *BMP [facility] Work Phone: Start: 05-18-2014 End: [...] End: 05-18-2014 Electrocardiogram, complete EKG (In office) [facility] Work Phone: Start: 05-18-2014 End: 05-18-2014 Follow Up Appt 3 months Follow Up Appt 3 months [facility] Work Phone: Start: 05-18-2014 End: 05-18-2014 Left Heart Cath Left Heart Cath [facility] Work Phone: Start: 05-18-2014 End: 05-18-2014 MMM MMM [facility] Work Phone: Start: 05-18-2014 End: 05-18-2014 Thyroid stimulating hormone (TSH) *TSH [facility] Work Phone: Start: 05-18-2014 End: 05-18-2014 Thyroxine (T4) *T4 (Total) [facility] Work Phone: Start: 11-19-2013 End: 11-19-2013 VICE PRESIDENT LENDING VICE PRESIDENT LENDING [facility] Work Phone: Start: 11-19-2013 End: 11-19-2013 Follow Up Appt 6 months Follow Up Appt 6 months [facility] Work Phone: Start: 11-19-2013 End: 11-19-2013 Follow Up Appt Other Follow Up Appt Other [facility] Work Phone: Start: 11-19-2013 End: 11-19-2013 VICE PRESIDENT LENDING VICE PRESIDENT LENDING [facility] Work Phone: Start: 11-19-2013 End: 11-19-2013 Follow Up Appt 6 months Follow Up Appt 6 months [facility] Work Phone: Start: 11-19-2013 End: 11-19-2013 Follow Up Appt Other Follow Up Appt Other [facility] Work Phone: Start: 08-21-2013 [...] Up Appt Other Follow Up Appt Other [facility] Work Phone: Start: 08-11-2013 End: 08-11-2013 Follow Up Appt Other Follow Up Appt Other [facility] Work Phone: Start: 07-03-2013 End: 08-11-2013 Ecg routine ecg w/least 12 lds w/i&r EKG (In office) [facility] Work Phone: Start: 07-02-2013 End: 07-03-2013 *BMP *BMP [facility] Work Phone: Start: 07-02-2013 End: 07-03-2013 *CBC with Differential *CBC with Differential [facility] Work Phone: Start: 07-02-2013 End: 07-03-2013 BNP *Brain Natriuretic Peptide BNP [facility] Work Phone: Start: 07-02-2013 End: 07-02-2013 Cardioversion Cardioversion [facility] Work Phone: Start: 07-02-2013 End: 08-11-2013 Electrocardiogram, complete EKG (In office) [facility] Work Phone: Start: 07-02-2013 End: [...] 2 months Follow Up Appt 2 months [facility] Work Phone: Start: 07-02-2013 End: 08-11-2013 MMM MMM [facility] Work Phone: Start: 05-05-2013 End: 05-05-2013 Follow Up Appt 6 months Follow Up Appt 6 months [facility] Work Phone: Start: 05-05-2013 End: 05-05-2013 MMM MMM [facility] Work Phone: Start: 05-05-2013 End: 05-05-2013 Follow Up Appt 6 months Follow Up Appt 6 months [facility] Work Phone: Start: 05-05-2013 End: 05-05-2013 MMM MMM [facility] Work Phone: Start: 03-19-2013 End: 03-19-2013 VICE PRESIDENT LENDING VICE PRESIDENT LENDING [facility] Work Phone: Start: 03-19-2013 End: 03-19-2013 Follow Up Appt 4 months Follow Up Appt 4 months [facility] Work Phone: Start: 03-19-2013 End: 03-19-2013 Nuclear stress test -exercise Nuclear stress test -exercise [facility] Work Phone: Start: 03-19-2013 End: 03-19-2013 VICE PRESIDENT LENDING VICE PRESIDENT LENDING [facility] Work Phone: Start: 03-19-2013 End: 03-19-2013 Follow Up Appt 4 months Follow Up Appt 4 months [facility] Work Phone: Start: 03-19-2013 End: 03-19-2013 Nuclear stress test -exercise Nuclear stress test -exercise [facility] Work Phone: Start: 05-26-2012 End: 07-03-2013 Urine culture, bacteria *C&S, Routine Bacteria [facility] Work Phone: Start: 05-26-2012 End: 07-03-2013 Urine culture, bacteria *C&S, Routine Bacteria [facility] Work Phone: Summary Purpose Family [...] BE BASED ON THE PRIMARY CLINICAL RECORDS. [facility]. provides no warranty or guarantee of the accuracy or completeness of information in this document.
--- NOTE | 2023-04-15 12:10 | RAD_ITS ---
EXAM: XR CHEST, 2 VIEWS CLINICAL INDICATION: Eval for pleural effusion -- HAS THORA AT 1330 TECHNIQUE: Frontal and lateral views of the chest. COMPARISON: Subsequent chest radiograph on the same date. FINDINGS: LUNGS AND PLEURAL SPACES: Mid to large left pleural effusion, subsequently decreased in size. No pneumothorax. HEART: Cardiomegaly and/or pericardial effusion. MEDIASTINUM: Central airways and mediastinal contour are unremarkable. BONES/JOINTS: Osseous degenerative changes. No acute fracture. SOFT TISSUES: No significant abnormality. VASCULATURE: Atherosclerosis. RAD/Chest PA and Lateral IMPRESSION: 1. Cardiomegaly and/or pericardial effusion. 2. Mid to large left pleural effusion, subsequently decreased in size. Electronically Signed: Fred Ulloa DO at 23:53 EST ,
[2023-04-15 12:18] VITALS: BP 127/55; PULSE 88; RESP 20; TEMP 36.3; O2SAT 96
[2023-04-15] MEDS: Lidocaine 2% (20 ml mdv) 20 ML Vial INFILT (12:24)
--- NOTE | 2023-04-15 12:30 | RAD_ITS ---
STUDY: X-RAY CHEST REASON FOR EXAM: Female, 83 years old. Post thoracentesis TECHNIQUE: AP inspiration and expiration. COMPARISON: Comparison is made with prior study done earlier today. FINDINGS: The patient is status post left thoracentesis. There is no evidence of pneumothorax. RAD/Chest Insp/Exp 2 View IMPRESSION: The patient is status post left thoracentesis. There is no evidence of pneumothorax. Electronically Signed: Huey Gomez MD at 12:45 EST ,
[2023-04-15 12:33] VITALS: BP 111/63; PULSE 88; RESP 18; O2SAT 96
[2023-04-15 12:35] VITALS: BP 124/64; PULSE 84; RESP 18; O2SAT 95
--- NOTE | 2023-04-15 12:42 | PRO.PCM_ITS ---
Procedure Report Date of Procedure: 04/15/23 Assessment & Plan Assessment/Plan (1) Pleural effusion, left: PLAN: PROCEDURE: Ultrasound Guided Thoracentesis ORDERING PROVIDER: Dr. Douglas INDICATION: Female, 83 years old. Recurrent left pleural effusion. PROVIDER: ANAMIKA Bravo PROCEDURE: The risks, benefits, and alternatives to the procedure were explained to the patient. The specific risks of bleeding, infection, and pneumothorax requiring chest tube insertion were discussed and accepted. Written informed consent was obtained. The patient was placed in the sitting, upright position. Ultrasonographic evaluation of the bilateral lower pleural spaces was carried out. An adequate pocket was identified in the left lower pleural space.The overlying skin was prepped and draped in sterile fashion. 2% lidocaine was administered subcutaneously for local anesthesia. Under ultrasound guidance, a 5-[place] thoracentesis needle/catheter system was advanced into the left posterior lower pleural fluid collection. 1050 ml of clear yellow colored fluid was drained. The catheter was removed, and a sterile dressing was applied. The patient tolerated the procedure well. A chest x-ray was ordered. IMPRESSION: Successful ultrasound-guided thoracentesis of recurrent left pleural effusion. Procedures Radiology Radiology US Procedures: [id number] Thoracentesis
== END | disposition home or self-care (01) ==
LOC: US 11:14
PROVIDERS: PCP Family Medicine Geriatric Medicine; Referring Provider Family Medicine Geriatric Medicine; Visit Provider Family Medicine Geriatric Medicine
DX: J90 Pleural effusion, not elsewhere classified (principal)
CPT/HCPCS: 32555; 71046

== ENCOUNTER → 2023-04-24 | Outpatient (CLI) | payer MEDICARE, OTHER, SELFPAY ==
[2023-04-24] MEDS: Lidocaine 2% (20 ml mdv) 20 ML Vial INFILT (08:17)
--- NOTE | 2023-04-24 08:30 | RAD_ITS ---
STUDY: X-RAY CHEST REASON FOR EXAM: Female, 83 years old. Immediately post thoracentesis TECHNIQUE: AP inspiration and expiration views. COMPARISON: Comparison is made with prior study dated April 15, 2023. FINDINGS: No evidence of pneumothorax following the left thoracentesis. Persistent mild degree of pleural parenchymal changes at the left lung base. RAD/Chest Insp/Exp 2 View IMPRESSION: No evidence of pneumothorax following the left thoracentesis. Mild residual left pleural-parenchymal changes. Electronically Signed: Huey Gomez MD at 9:09 EST ,
[2023-04-24 08:53] VITALS: BP 138/64; PULSE 87; RESP 20; TEMP 35.7; O2SAT 95
[2023-04-24 08:54] VITALS: BP 134/65; PULSE 86; RESP 18; O2SAT 95
--- NOTE | 2023-04-24 08:55 | PCM.OP.PRO ---
Procedure Report Date of Procedure: 04/24/23 Assessment & Plan Assessment/Plan (1) Pleural effusion, left: PLAN: PROCEDURE: Ultrasound Guided Thoracentesis ORDERING PROVIDER: Dr. Douglas INDICATION: Female, 83 years old. Recurrent left pleural effusion. PROVIDER: ANAMIKA Bravo PROCEDURE: The risks, benefits, and alternatives to the procedure were explained to the patient. The specific risks of bleeding, infection, and pneumothorax requiring chest tube insertion were discussed and accepted. Written informed consent was obtained. The patient was placed in the sitting, upright position. Ultrasonographic evaluation of the bilateral lower pleural spaces was carried out. An adequate pocket was identified in the left lower pleural space.The overlying skin was prepped and draped in sterile fashion. 2% lidocaine was administered subcutaneously for local anesthesia. Under ultrasound guidance, a 5-[place] thoracentesis needle/catheter system was advanced into the left posterior lower pleural fluid collection. 1540 ml of clear yellow colored fluid was drained. The catheter was removed, and a sterile dressing was applied. The patient tolerated the procedure well. A chest x-ray was ordered. IMPRESSION: Successful ultrasound-guided thoracentesis of left pleural effusion. Procedures Radiology Radiology US Procedures: [id number] Thoracentesis
== END | disposition home or self-care (01) ==
LOC: US 07:57
PROVIDERS: PCP Family Medicine Geriatric Medicine; Referring Provider Family Medicine Geriatric Medicine; Visit Provider Family Medicine Geriatric Medicine
DX: J90 Pleural effusion, not elsewhere classified (principal)
CPT/HCPCS: 32555; 71046

== ENCOUNTER → 2023-04-24 | Outpatient (CLI) | payer MEDICARE, OTHER, SELFPAY ==
[2023-04-24 11:48] LABS: Absolute Lymphocyte Count 0.93 X10^3/uL (0.83-4.51); Absolute Neutrophil Count 5.6 X10^3/uL (2.0-7.7); Basophil# 0.05 X10^3/uL; Basophil% 0.7 % (0-1); Eosinophil# 0.18 X10^3/uL; Eosinophils% 2.4 % (0-5); Hematocrit 36.1 % (37-47); Hemoglobin 11.4 g/dL (12.0-15.0); Lymphocyte # 0.93 X10^3/ul (0.83-4.51); Lymphocyte % 12.4 % (19-41); Mean Corp Hgb Conc 31.6 g/dL (32-36); Mean Corpuscular Hgb 29.5 pg (27.0-32.0); Mean Corpuscular Volume 93.3 fL (81-99); Mean Platelet Vol. 10.4 fl (6.2-12.0); Monocyte# 0.62 X10^3/uL; Monocyte% 8.3 % (0-10); NRBC Flagged by Analyzer 0 % (0-5); Neutrophil # 5.61 X10^3/uL (2.7-7.7); Neutrophil % 74.7 % (47-70); Platelet Count 243 K/mm3 (150-450); RBC Distribution Width SD 46.9 fl (35.1-43.9); Red Blood Count 3.87 M/mm3 (4.2-5.4); White Blood Count 7.5 K/mm3 (4.4-11.0)
[2023-04-24 12:09] LABS: ALB/GLOB Ratio 0.7 RATIO (0.9-2.4); AST(SGOT) 12 U/L (15-37); Alanine Aminotransfer ALT/SGPT 19 U/L (13-56); Albumin, Serum 2.6 g/dL (3.2-5.0); Alkaline Phosphatase 81 U/L (45-117); Anion Gap 2 (5-15); BUN 28 mg/dL (7-18); BUN/Creat Ratio 18.5 RATIO (10-20); Calcium,Total 8.8 mg/dL (8.5-10.1); Chloride 109 mmol/L (98-107); Creatinine, Serum 1.51 mg/dL (0.55-1.02); EST Glomerular Filtration Rate 35 mL/min (>60); Est Glom Filt Rate - Afr Amer 42 mL/min (>60); Globulin 3.6 g/dL (2.2-4.2); Glucose 241 mg/dL (74-106); Potassium 4.3 mmol/L (3.5-5.1); Protein, Total 6.2 g/dL (6.4-8.2); Sodium Level 142 mmol/L (136-145); Thyroid Stim Hormone (TSH) 2.46 uIU/mL (0.358-3.74)
--- OUTSIDE RECORDS SUMMARY | 2023-04-24 12:50 | XMS RPT_ITS | CCD ---
Author Name Unknown Address [address] [place] [address] Organization [facility] Care Team Providers Care Proctologist Name Role Phone Aj Baptiset Unavailable Unavailable Vijaya Arshad Unavailable Unavailable Pat Pa Unavailable Unavailable Roof EDGE STAINER, Chad Aden Unavailable Vijaya Arshad Unavailable Unavailable FLETCHER Rehman, Natalie Carvajal Unavailable UnavailRina Queen Unavailable Unavailable Rina Patel Unavailable Unavailable Aj Baptiste Unavailable Unavailable Aj Baptiste Unavailable Unavailable Pat Pa Unavailable Unavailable Mariam Amaral RN Unavailable Unavailable Vijaya Arshad Unavailable Unavailable Pat Pa Unavailable Unavailable Allergies Allergy Classification Reported Allergen(s) Allergy Type Date of Onset Reaction(s) Facility (14 sources) amLODIPine drug allergy 6 constipation [facility] Work Phone: [phone] (14 sources) ascorbic acid / beta carotene / cuprous oxide / vitamin E / zinc oxide drug allergy 6 rash [facility] Work Phone: [phone] (14 sources) doxazosin drug allergy 6 lightheadedness [facility] Work Phone: [phone] (14 sources) fish oil drug allergy 6 rash [facility] Work Phone: [phone] (20 sources) Sulfonamides (Antibiotic) drug allergy 9 Unknown, had a reaction when she was 5 y/o [facility] Work Phone: [phone] (14 sources) OXYBUT drug allergy 6 rash [facility] Work Phone: Medications Completed/Discontinued Medications Medication Drug Class(es) Dates Sig (Normalized) Sig (Original) 200 actuat albuterol 0.09 mg/actuat metered dose inhaler (9 sources) beta2-Adrenergic Agonist Start: 11-16-2016 PROAIR HFA 108 (90 Base) MCG/ACT AERS Two inh every 4 hrs as needed ALBUTEROL SULFATE [id number] Pat Pa Problems Active Problems Problem Classification [...] 40.74 kg/m2 Rina Patel [facility] Work Phone: 01-16-2017 06:47-0400 Body Temperature 98.8 [degF] Rina Patel [facility] Work Phone: 01-16-2017 06:47-0400 BP Diastolic 70 mm[Hg] Rina Patel [facility] Work Phone: 01-16-2017 06:47-0400 BP Systolic 124 mm[Hg] Rina Patel [facility] Work Phone: 01-16-2017 06:47-0400 Height 172.09 cm Rina Patel [facility] Work Phone: 01-16-2017 06:47-0400 Pulse (Heart Rate) 57 /min Rina Patel [facility] Work Phone: 01-16-2017 06:47-0400 Respiratory Rate 18 /min Rina Patel [facility] Work Phone: 01-16-2017 06:47-0400 Weight 120.66 kg [...] 11:13-0400 BMI (Body Mass Index) 42.73 kg/m2 [facility] Work Phone: 12-07-2016 11:13-0400 Body Temperature 98.8 [degF] [facility] Work Phone: 12-07-2016 11:13-0400 BP Diastolic 69 mm[Hg] Pat Thierno [facility] Work Phone: 12-07-2016 11:13-0400 BP Systolic 173 mm[Hg] Pat Thierno [facility] Work Phone: 12-07-2016 11:13-0400 Height 172.09 cm [facility] Work Phone: 12-07-2016 11:13-0400 Pulse (Heart Rate) 51 [facility] Work Phone: 12-07-2016 11:13-0400 Respiratory Rate 18 /min [facility] Work Phone: 12-07-2016 11:13-0400 Weight 126.55 kg Pat Pa [facility] Work Phone: 10-18-2016 15:41-0400 BMI (Body Mass Index) 41.32 kg/m2 Vijaya [facility] Work Phone: 10-18-2016 15:41-0400 BP Diastolic 60 mm[Hg] Vijaya Arshad [facility] Work Phone: 10-18-2016 15:41-0400 BP [...] Mass Index) 41.41 kg/m2 Natalie Rehman RN [facility] Work Phone: 04-06-2016 13:35-0500 BP Diastolic 60 mm[Hg] [facility] Work Phone: 04-06-2016 13:35-0500 BP Systolic 180 mm[Hg] [facility] Work Phone: 04-06-2016 13:35-0500 BSA (Body Surface Area) 2.32 m2 [facility] Work Phone: 04-06-2016 13:35-0500 Pulse (Heart Rate) 72 /min FLETCHER [facility] Work Phone: 04-06-2016 13:35-0500 Respiratory Rate 20 /min [facility] Work Phone: 04-06-2016 13:35-0500 Weight 122.65 kg Natalie Rehman RN [facility] Work Phone: 10-04-2015 14:37-0400 Heart rate 57 /min [facility] Work Phone: 02-09-2015 13:55-0500 Body Temperature 96.4 [degF] [facility] Work Phone: 08-21-2013 14:20-0400 Height 172.09 cm [facility] Work Phone: 07-03-2013 11:14-0400 Heart rate 466 ms Mariam Amaral RN [facility] Work Phone: Procedures Date Procedure Procedure Detail Performing Clinician Start: 12-31-2016 End: 01-03-2017 *BMP Chad Woodard EDGE STAINER Work Phone: Start: 12-17-2016 End: 12-17-2016 Ecg routine ecg w/least 12 lds w/i&r Chad Woodard EDGE STAINER Work Phone: Start: 12-07-2016 End: 12-14-2016 *MISC - Miscellaneous Lab Test #1 Bessy Galan CNP Work Phone: Start: 12-07-2016 End: 12-14-2016 DMB Bessy Galan [employer] Work Phone: Start: 12-07-2016 End: 12-14-2016 Follow Up Appt 2 months Bessy vallejo [employer] Work Phone: Start: 12-07-2016 End: 12-14-2016 Pulmonary Function Test - complete Bessy Galan [employer] Work Phone: Start: 12-07-2016 End: 12-14-2016 Pulmonary stress test/simple Bessy Galan [employer] Work Phone: Start: 12-07-2016 End: 12-07-2016 Dietary management education, guidance, and counseling Pat Pa Start: 12-07-2016 End: 12-14-2016 *MISC - Miscellaneous Lab Test #1 Bessy Galan [employer] Work Phone: Start: 12-07-2016 End: 12-14-2016 DMB Bessy Galan [employer] Work Phone: Start: 12-07-2016 End: 12-14-2016 Follow Up Appt 2 months Bessy Mahoney Marlene genevieve [employer] Work Phone: Start: 12-07-2016 End: 12-14-2016 Pulmonary Function Test - complete Bessy Galan [employer] Work Phone: Start: 12-07-2016 End: 12-14-2016 Pulmonary stress test/simple Bessy Galan [employer] Work Phone: Start: 10-18-2016 End: 10-18-2016 Follow [...] PA-C Work Phone: Start: 03-30-2015 End: 03-30-2015 DISASTER RECOVERY SPECIALIST Mitali Hagen PA-C Work Phone: Start: 03-30-2015 End: 03-30-2015 Follow Up Appt 6 months Mitali Hagen PA-C Work Phone: Start: 03-30-2015 End: 03-30-2015 Follow Up BP Check Mitali Hagen PA-C Work Phone: Start: 03-30-2015 End: 04-03-2016 Ambulatory BP Monitor 24 HR Mitali Hagen PA-C Work Phone: Start: 03-30-2015 End: 03-30-2015 DISASTER RECOVERY SPECIALIST Mitali Hagen PA-C Work Phone: Start: 03-30-2015 [...] Roosevelt Tesfaye MD Start: 08-16-2014 End: 08-16-2014 DISASTER RECOVERY SPECIALIST Mitali Hagen PA-C Work Phone: Start: 08-16-2014 End: 08-17-2014 Documentation of current medications Mitali Hagen PA-C Work Phone: Start: 08-16-2014 End: 08-16-2014 Follow Up Appt 6 weeks Mitali Hagen PA-C Work Phone: Start: 08-16-2014 End: 08-27-2014 Pulmonary Function Test - complete Mitali Hagen PA-C Work Phone: Start: 08-16-2014 End: 08-16-2014 DISASTER RECOVERY SPECIALIST Mitali Hagen PA-C Work Phone: Start: 08-16-2014 End: 08-17-2014 Documentation of current medications Mitali Hgaen PA-C Work Phone: Start: 08-16-2014 End: 08-16-2014 [...] months Wei Adamson Start: 07-02-2013 End: 08-11-2013 SEB Tesfaye MD Start: 07-02-2013 End: 07-03-2013 Natriuretic [...] MMWei Tesfaye MD Start: 03-19-2013 End: 03-19-2013 DISASTER RECOVERY SPECIALIST KELLEY SolitarioC Work Phone: Start: 03-19-2013 End: 03-19-2013 Follow Up Appt 4 months Mitali Hagen PA-C Work Phone: Start: 03-19-2013 End: 08-11-2013 Nuclear stress test -exercise Mitali Hagen PA-C Work Phone: Start: 03-19-2013 End: 03-19-2013 DISASTER RECOVERY SPECIALIST Mitali Hagen PA-C Work Phone: Start: 03-19-2013 [...] Phone: Start: 01-30-2017 End: 01-30-2017 Appointment Appointment [facility] Work Phone: Start: 01-16-2017 End: 01-16-2017 [facility] Work Phone: Start: 01-16-2017 End: 01-16-2017 Follow Up Appt 6 months Follow Up Appt 6 months [facility] Work Phone: Start: 01-16-2017 End: 01-16-2017 Appointment Appointment [facility] Work Phone: Start: 12-31-2016 End: 01-03-2017 *BMP *BMP [facility] Work Phone: Start: 12-31-2016 End: 12-17-2016 *BMP *BMP [facility] Work Phone: Start: 12-17-2016 End: 12-17-2016 Appointment Appointment [facility] Work Phone: Start: 12-07-2016 End: 12-07-2016 Appointment Appointment [facility] Work Phone: Start: 12-07-2016 End: 12-14-2016 *MISC - Miscellaneous Lab Test #1 *MISC - Miscellaneous Lab Test #1 [facility] Work Phone: Start: 12-07-2016 End: 12-14-2016 [facility] Work Phone: Start: 12-07-2016 End: 12-14-2016 Follow Up Appt 2 months Follow Up Appt 2 months [facility] Work Phone: Start: 12-07-2016 End: 12-14-2016 Pulmonary Function Test - complete Pulmonary Function Test - complete [facility] Work Phone: Start: 12-07-2016 End: 12-14-2016 Pulmonary stress test/simple Pulmonary stress testing; simple (eg, 6-minute walk) [facility] Work Phone: Start: 12-07-2016 End: 12-14-2016 *MISC - Miscellaneous Lab Test #1 *MISC - Miscellaneous Lab Test #1 [facility] Work Phone: Start: 12-07-2016 End: 12-14-2016 [facility] Work Phone: Start: 12-07-2016 End: 12-14-2016 Follow Up Appt 2 months Follow Up Appt 2 months [facility] Work Phone: Start: 12-07-2016 End: 12-14-2016 Pulmonary Function Test - complete Pulmonary Function Test - complete [facility] Work Phone: Start: 12-07-2016 End: 12-14-2016 Pulmonary stress test/simple Pulmonary stress testing; simple (eg, 6-minute walk) [facility] Work Phone: Start: 10-18-2016 End: 10-18-2016 Appointment Appointment [facility] Work Phone: Start: 10-18-2016 End: 10-18-2016 Follow Up Appt 6 months Follow Up Appt 6 months [facility] Work Phone: Start: 10-18-2016 End: 10-18-2016 MMM MMM [facility] Work Phone: Start: 10-18-2016 End: 10-18-2016 Follow Up Appt 6 months Follow Up Appt 6 months [facility] Work Phone: Start: 10-18-2016 End: 10-18-2016 MMM MMM [facility] Work Phone: Start: 04-06-2016 End: 04-06-2016 DISASTER RECOVERY SPECIALIST DISASTER RECOVERY SPECIALIST [facility] Work Phone: Start: 04-06-2016 End: 04-06-2016 Follow Up Appt 6 months Follow Up Appt 6 months [facility] Work Phone: Start: 04-06-2016 End: 04-06-2016 DISASTER RECOVERY SPECIALIST DISASTER RECOVERY SPECIALIST [facility] Work Phone: Start: 04-06-2016 End: 04-06-2016 Follow Up Appt 6 months Follow Up Appt 6 months [facility] Work Phone: Start: 10-04-2015 End: 10-04-2015 Ecg routine ecg w/least 12 lds w/i&r EKG (In office) [facility] Work Phone: Start: 10-04-2015 End: 10-04-2015 Follow Up Appt 6 months Follow Up Appt 6 months [facility] Work Phone: Start: 10-04-2015 End: 10-04-2015 MMM MMM [facility] Work Phone: Start: 10-04-2015 End: 10-04-2015 Electrocardiogram, complete EKG (In office) [facility] Work Phone: Start: 10-04-2015 End: 10-04-2015 Follow Up Appt 6 months Follow Up Appt 6 months [facility] Work Phone: Start: 10-04-2015 End: 10-04-2015 MMM MMM [facility] Work Phone: Start: 05-11-2015 End: 05-16-2015 *BMP *BMP [facility] Work Phone: Start: 05-11-2015 End: 05-16-2015 *BMP *BMP [facility] Work Phone: Start: 03-30-2015 End: 03-31-2015 Ambulatory BP Monitor 24 HR Ambulatory BP Monitor 24 HR [facility] Work Phone: Start: 03-30-2015 End: 03-30-2015 DISASTER RECOVERY SPECIALIST DISASTER RECOVERY SPECIALIST [facility] Work Phone: Start: 03-30-2015 End: 03-30-2015 Follow Up Appt 6 months Follow Up Appt 6 months [facility] Work Phone: Start: 03-30-2015 End: 03-30-2015 Follow Up BP Check Follow Up BP Check [facility] Work Phone: Start: 03-30-2015 End: 03-31-2015 Ambulatory BP Monitor 24 HR Ambulatory BP Monitor 24 HR [facility] Work Phone: Start: 03-30-2015 End: 03-30-2015 DISASTER RECOVERY SPECIALIST DISASTER RECOVERY SPECIALIST [facility] Work Phone: Start: 03-30-2015 End: 03-30-2015 Follow Up Appt 6 months Follow Up Appt 6 months [facility] Work Phone: Start: 03-30-2015 End: 03-30-2015 Follow Up BP Check Follow Up BP Check [facility] Work Phone: Start: 02-09-2015 End: 02-09-2015 Fungus culture *CUF - Culture, Fungus (Only) [id number] [facility] Work Phone: Start: 02-09-2015 End: 02-09-2015 Fungus culture *CUF - Culture, Fungus (Only) [id number] [facility] Work Phone: Start: 09-28-2014 End: 09-30-2014 *Hepatic Function Panel *Hepatic Function Panel [facility] Work Phone: Start: 09-28-2014 End: 09-28-2014 Follow Up Appt 6 months Follow Up Appt 6 months [facility] Work Phone: Start: 09-28-2014 End: 09-28-2014 MMM MMM [facility] Work Phone: Start: 09-28-2014 End: 09-30-2014 Thyroid stimulating hormone (TSH) *TSH [facility] Work Phone: Start: 09-28-2014 End: 09-30-2014 Thyroxine (T4) *T4 (Total) [facility] Work Phone: Start: 09-28-2014 End: 09-30-2014 *Hepatic Function Panel *Hepatic Function Panel [facility] Work Phone: Start: 09-28-2014 End: 09-28-2014 Follow Up Appt 6 months Follow Up Appt 6 months [facility] Work Phone: Start: 09-28-2014 End: 09-28-2014 MMM MMM [facility] Work Phone: Start: 09-28-2014 End: 09-30-2014 Thyroid stimulating hormone (TSH) *TSH [facility] Work Phone: Start: 09-28-2014 End: 09-30-2014 Thyroxine (T4) *T4 (Total) [facility] Work Phone: Start: 08-16-2014 End: 08-16-2014 DISASTER RECOVERY SPECIALIST DISASTER RECOVERY SPECIALIST [facility] Work Phone: Start: 08-16-2014 End: 08-16-2014 Follow Up Appt 6 weeks Follow Up Appt 6 weeks [facility] Work Phone: Start: 08-16-2014 End: 08-16-2014 Pulmonary Function Test - complete Pulmonary Function Test - complete [facility] Work Phone: Start: 08-16-2014 End: 08-16-2014 DISASTER RECOVERY SPECIALIST DISASTER RECOVERY SPECIALIST [facility] Work Phone: Start: 08-16-2014 [...] X-ray exam of hip X-Ray, Hip Unilateral [facility] Work Phone: Start: 07-23-2014 End: 07-23-2014 X-ray exam of hip X-Ray, Hip Unilateral [facility] Work Phone: Start: 07-23-2014 End: 07-23-2014 X-ray exam of pelvis X-Ray, Pelvis [facility] Work Phone: Start: 05-18-2014 End: 05-18-2014 *BMP *BMP [facility] Work Phone: Start: 05-18-2014 End: [...] 3 months Follow Up Appt 3 months [facility] Work Phone: Start: 05-18-2014 End: 05-18-2014 Left Heart Cath Left Heart Cath [facility] Work Phone: Start: 05-18-2014 End: 05-18-2014 MMM MMM [facility] Work Phone: Start: 05-18-2014 End: 05-18-2014 Thyroid stimulating hormone (TSH) *TSH [facility] Work Phone: Start: 05-18-2014 End: 05-18-2014 Thyroxine (T4) *T4 (Total) [facility] Work Phone: Start: 05-18-2014 End: 05-18-2014 *BMP *BMP [facility] Work Phone: Start: 05-18-2014 End: [...] End: 05-18-2014 Electrocardiogram, complete EKG (In office) [facility] Work Phone: Start: 05-18-2014 End: 05-18-2014 Follow Up Appt 3 months Follow Up Appt 3 months [facility] Work Phone: Start: 05-18-2014 End: 05-18-2014 Left Heart Cath Left Heart Cath [facility] Work Phone: Start: 05-18-2014 End: 05-18-2014 MMM MMM [facility] Work Phone: Start: 05-18-2014 End: 05-18-2014 Thyroid stimulating hormone (TSH) *TSH [facility] Work Phone: Start: 05-18-2014 End: 05-18-2014 Thyroxine (T4) *T4 (Total) [facility] Work Phone: Start: 11-19-2013 End: 11-19-2013 DISASTER RECOVERY SPECIALIST DISASTER RECOVERY SPECIALIST [facility] Work Phone: Start: 11-19-2013 End: 11-19-2013 Follow Up Appt 6 months Follow Up Appt 6 months [facility] Work Phone: Start: 11-19-2013 End: 11-19-2013 Follow Up Appt Other Follow Up Appt Other [facility] Work Phone: Start: 11-19-2013 End: 11-19-2013 DISASTER RECOVERY SPECIALIST DISASTER RECOVERY SPECIALIST [facility] Work Phone: Start: 11-19-2013 End: 11-19-2013 Follow Up Appt 6 months Follow Up Appt 6 months [facility] Work Phone: Start: 11-19-2013 End: 11-19-2013 Follow Up Appt Other Follow Up Appt Other [facility] Work Phone: Start: 08-21-2013 End: 08-21-2013 Follow Up Appt 3 months Follow Up Appt 3 months [facility] Work Phone: Start: 08-21-2013 End: 08-21-2013 MMM MMM [facility] Work Phone: Start: 08-21-2013 End: 08-21-2013 Follow Up Appt 3 months Follow Up Appt 3 months [facility] Work Phone: Start: 08-21-2013 End: 08-21-2013 MMM MMM [facility] Work Phone: Start: 08-11-2013 End: 08-11-2013 Follow Up Appt Other Follow Up Appt Other [facility] Work Phone: Start: 08-11-2013 End: 08-11-2013 Follow Up Appt Other Follow Up Appt Other [facility] Work Phone: Start: 07-03-2013 End: 08-11-2013 Ecg routine ecg w/least 12 lds w/i&r EKG (In office) [facility] Work Phone: Start: 07-02-2013 End: 07-03-2013 *BMP *BMP [facility] Work Phone: Start: 07-02-2013 End: 07-03-2013 *CBC with Differential *CBC with Differential [facility] Work Phone: Start: 07-02-2013 End: 07-03-2013 BNP *Brain Natriuretic Peptide BNP [facility] Work Phone: Start: 07-02-2013 End: 07-02-2013 Cardioversion Cardioversion [facility] Work Phone: Start: 07-02-2013 End: 08-11-2013 Electrocardiogram, complete EKG (In office) [facility] Work Phone: Start: 07-02-2013 End: 08-11-2013 Follow Up Appt 2 months Follow Up Appt 2 months [facility] Work Phone: Start: 07-02-2013 End: 08-11-2013 MMM MMM [facility] Work Phone: Start: 07-02-2013 End: 07-03-2013 *BMP *BMP [facility] Work Phone: Start: 07-02-2013 End: 07-03-2013 *CBC with Differential *CBC with Differential [facility] Work Phone: Start: 07-02-2013 End: 07-03-2013 BNP *Brain Natriuretic Peptide BNP [facility] Work Phone: Start: 07-02-2013 End: 07-02-2013 Cardioversion Cardioversion [facility] Work Phone: Start: 07-02-2013 End: 07-02-2013 Electrocardiogram, complete EKG (In office) [facility] Work Phone: Start: 07-02-2013 End: 08-11-2013 Follow Up Appt 2 months Follow Up Appt 2 months [facility] Work Phone: Start: 07-02-2013 End: 08-11-2013 MMM MMM [facility] Work Phone: Start: 05-05-2013 End: 05-05-2013 Follow Up Appt 6 months Follow Up Appt 6 months [facility] Work Phone: Start: 05-05-2013 End: 05-05-2013 MMM MMM [facility] Work Phone: Start: 05-05-2013 End: 05-05-2013 Follow Up Appt 6 months Follow Up Appt 6 months [facility] Work Phone: Start: 05-05-2013 End: 05-05-2013 MMM MMM [facility] Work Phone: Start: 03-19-2013 End: 03-19-2013 DISASTER RECOVERY SPECIALIST DISASTER RECOVERY SPECIALIST [facility] Work Phone: Start: 03-19-2013 End: 03-19-2013 Follow Up Appt 4 months Follow Up Appt 4 months [facility] Work Phone: Start: 03-19-2013 End: 03-19-2013 Nuclear stress test -exercise Nuclear stress test -exercise [facility] Work Phone: Start: 03-19-2013 End: 03-19-2013 DISASTER RECOVERY SPECIALIST DISASTER RECOVERY SPECIALIST [facility] Work Phone: Start: 03-19-2013 End: [...] 07-03-2013 Urine culture, bacteria *C&S, Routine Bacteria [facility] Work Phone: Summary Purpose Family [...] BE BASED ON THE PRIMARY CLINICAL RECORDS. [employer] [facility]. provides no warranty or guarantee of the accuracy or completeness of information in this document.
== END | disposition home or self-care (01) ==
LOC: POLAB3 10:15
PROVIDERS: PCP Family Medicine Geriatric Medicine; Visit Provider Family Medicine Geriatric Medicine
DX: E55.9 Vitamin D deficiency, unspecified (principal); E11.65 Type 2 diabetes mellitus with hyperglycemia; I10 Essential (primary) hypertension
CPT/HCPCS: 36415; 80053; 82306; 84443; 85025

== ENCOUNTER → 2023-04-30 | Outpatient (CLI) | payer MEDICARE, OTHER, SELFPAY ==
--- NOTE | 2023-04-30 14:07 | VDLE_ITS ---
Reason For Study: Left leg pain Procedure LEFT This is a venous duplex using B-mode, color GSV is normal. flow and spectral Doppler. CFV is compressible, spontaneous, phasic, Exam performed in department. competent, and demonstrates normal A preliminary report was called and/or faxed augmentation. to Dr. Dahl. FV is compressible, spontaneous, phasic, competent and demonstrates normal augmentation. POP V is compressible, spontaneous, phasic, competent and demonstrates normal augmentation. T/P Trunk is compressible. PTV is compressible. LT PerV is compressible. VL/Venous Duplex US, Unilateral Interpretation Summary Deep veins of the left lower extremity are patent and compressible segmentally. There is no evidence of left lower extremity deep vein thrombosis. Valvular competence appears intac t within the proximal deep venous system on the left . The left great saphenous vein appears patent a nd compressible segmentally. Ordering Physician: Subhash Dahl Referring Physician: Alexy Douglas Chi Performed By: Maria Esther Marte RVT
--- OUTSIDE RECORDS SUMMARY | 2023-04-30 18:59 | XMS RPT_ITS | CCD ---
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, Chad Aden Unavailable Vijaya Arshad Unavailable Unavailable [...] (14 sources) amLODIPine drug allergy 6 constipation [facility] Work Phone: [phone] (14 sources) ascorbic acid / beta carotene / cuprous oxide / vitamin E / zinc oxide drug allergy 6 rash [facility] Work Phone: [phone] (14 sources) doxazosin drug allergy 6 lightheadedness [facility] Work Phone: [phone] (14 sources) fish oil drug allergy 6 rash [facility] Work Phone: [phone] (20 sources) Sulfonamides (Antibiotic) drug allergy 9 Unknown, had a reaction when she was 5 y/o [facility] Work Phone: [phone] (14 sources) OXYBUT drug allergy 6 rash [facility] Work Phone: Medications Completed/Discontinued Medications Medication Drug Class(es) Dates Sig (Normalized) Sig (Original) 200 actuat albuterol 0.09 mg/actuat metered dose inhaler (9 sources) beta2-Adrenergic Agonist Start: 11-16-2016 PROAIR HFA 108 (90 Base) MCG/ACT AERS Two inh every 4 hrs as needed ALBUTEROL SULFATE [id number] Pat Pa Problems Active Problems Problem Classification [...] 40.74 kg/m2 Rina Patel [facility] Work Phone: 01-16-2017 06:47-0400 Body Temperature 98.8 [degF] Rina Patel [facility] Work Phone: 01-16-2017 06:47-0400 BP Diastolic 70 mm[Hg] Rina Patel [facility] Work Phone: 01-16-2017 06:47-0400 BP Systolic 124 mm[Hg] Rina Patel [facility] Work Phone: 01-16-2017 06:47-0400 Height 172.09 cm Rina Patel [facility] Work Phone: 01-16-2017 06:47-0400 Pulse (Heart Rate) 57 /min Rina Patel [facility] Work Phone: 01-16-2017 06:47-0400 Respiratory Rate 18 /min Rina Patel [facility] Work Phone: 01-16-2017 06:47-0400 Weight 120.66 kg Rina Patel [facility] Work Phone: 12-17-2016 10:51-0400 Heart rate 47 [...] 11:13-0400 BMI (Body Mass Index) 42.73 kg/m2 [facility] Work Phone: 12-07-2016 11:13-0400 Body Temperature 98.8 [degF] [facility] Work Phone: 12-07-2016 11:13-0400 BP Diastolic 69 mm[Hg] Pat Thierno [facility] Work Phone: 12-07-2016 11:13-0400 BP Systolic 173 mm[Hg] Pat Thierno [facility] Work Phone: 12-07-2016 11:13-0400 Height 172.[address] [facility] Work Phone: 12-07-2016 11:13-0400 [facility]) [facility] Work Phone: 12-07-2016 11:13-0400 Respiratory Rate 18 /min [facility] Work Phone: 12-07-2016 11:13-0400 Weight 126.55 kg Pat Pa [facility] Work Phone: 10-18-2016 15:41-0400 BMI (Body Mass Index) 41.32 kg/m2 [facility] Work Phone: 10-18-2016 15:41-0400 BP Diastolic 60 mm[Hg] Vijaya Arshad [facility] Work Phone: 10-18-2016 15:41-0400 BP [...] Heart rate 466 ms Mariam Amaral RN [facility] Work Phone: Procedures Date Procedure Procedure Detail Performing Clinician Start: 12-31-2016 End: 01-03-2017 *BMP Cahd Woodard [employer]CISION ASSEMBLER Work Phone: Start: 12-17-2016 End: 12-17-2016 Ecg routine ecg w/least 12 lds w/i&r Chad Woodard [employer]CH [employer] ASSEMBLER Work Phone: Start: 12-07-2016 End: 12-14-2016 *MISC - Miscellaneous Lab Test #1 Bessy Galan CNP Work Phone: Start: 12-07-2016 End: 12-14-2016 DMB Bessy Galan SUPERVISORY [employer]CEPT [employer]OLLER Work Phone: Start: 12-07-2016 End: 12-14-2016 Follow Up Appt 2 months Bessy vallejo SUPERVISORY [employer]OLLER Work Phone: Start: 12-07-2016 End: 12-14-2016 Pulmonary Function Test - complete Bessy Galan SUPERVISORY [employer]CEPT [employer]OLLER Work Phone: Start: 12-07-2016 End: 12-14-2016 Pulmonary stress test/simple Bessy Galan SUPERVISORY [employer]CEPT [employer]OLLER Work Phone: Start: 12-07-2016 End: 12-07-2016 Dietary management education, guidance, and counseling Pat Pa Start: 12-07-2016 End: 12-14-2016 *MISC - Miscellaneous Lab Test #1 Bessy Galan SUPERVISORY [employer] INTERCEPT CONTROLLER Work Phone: Start: 12-07-2016 End: 12-14-2016 DMB Bessy Galan SUPERVISORY [employer] INTERCEPT [employer]OLLER Work Phone: Start: 12-07-2016 End: 12-14-2016 Follow Up Appt 2 months Bessy Mahoney Marlene genevieve SUPERVISORY [employer] INTERCEPT CONTROLLER Work Phone: Start: 12-07-2016 End: 12-14-2016 Pulmonary Function Test - complete Bessy Galan SUPERVISORY [employer] INTERCEPT [employer]OLLER Work Phone: Start: 12-07-2016 End: 12-14-2016 Pulmonary stress test/simple Bessy Galan SUPERVISORY [employer] INTERCEPT [employer]OLLER Work Phone: Start: 10-18-2016 End: 10-18-2016 Follow [...] Preoperative cardiovascular examination Pre-op cardiovascular exam Aj aBptiste Start: 10-04-2015 End: 10-04-2015 Electrocardiogram, complete Roosevelt [...] PA-C Work Phone: Start: 03-30-2015 End: 03-30-2015 TANBARK LABORER Mitali Hagen PA-C Work Phone: Start: 03-30-2015 End: 03-30-2015 Follow Up Appt 6 months Mitali Hagen PA-C Work Phone: Start: 03-30-2015 End: 03-30-2015 Follow Up BP Check Mitali Hagen PA-C Work Phone: Start: 03-30-2015 End: 04-03-2016 Ambulatory BP Monitor 24 HR Mitali Hagen PA-C Work Phone: Start: 03-30-2015 End: 03-30-2015 TANBARK LABORER Mitali Hagen PA-C Work Phone: Start: 03-30-2015 [...] Roosevelt Tesfaye MD Start: 08-16-2014 End: 08-16-2014 TANBARK LABORER Mitali Hagen PA-C Work Phone: Start: 08-16-2014 End: 08-17-2014 Documentation of current medications Mitali Hagen PA-C Work Phone: Start: 08-16-2014 End: 08-16-2014 Follow Up Appt 6 weeks Mitali Hagen PA-C Work Phone: Start: 08-16-2014 End: 08-27-2014 Pulmonary Function Test - complete Mitali Hagen PA-C Work Phone: Start: 08-16-2014 End: 08-16-2014 TANBARK LABORER Mitali Hagen PA-C Work Phone: Start: 08-16-2014 [...] MMWei Tesfaye MD Start: 03-19-2013 End: 03-19-2013 TANBARK LABORER KELLEY SolitarioC Work Phone: Start: 03-19-2013 End: 03-19-2013 Follow Up Appt 4 months Mitali Hagen PA-C Work Phone: Start: 03-19-2013 End: 08-11-2013 Nuclear stress test -exercise Mitali Hagen PA-C Work Phone: Start: 03-19-2013 End: 03-19-2013 TANBARK LABORER Mitali Hagen PA-C Work Phone: Start: 03-19-2013 [...] End: 07-15-2017 Appointment Appointment [facility] Work Phone: Start: 05-02-2017 End: 05-02-2017 Appointment Appointment [facility] Work Phone: Start: 01-30-2017 End: 01-30-2017 Appointment Appointment [facility] Work Phone: Start: 01-16-2017 End: 01-16-2017 [facility] Work Phone: Start: 01-16-2017 End: 01-16-2017 Follow Up Appt 6 months Follow Up Appt 6 months [facility] Work Phone: Start: 01-16-2017 End: 01-16-2017 Appointment Appointment [facility] Work Phone: Start: 12-31-2016 End: 01-03-2017 *BMP *BMP [facility] Work Phone: Start: 12-31-2016 End: 12-17-2016 *BMP *BMP [facility] Work Phone: Start: 12-17-2016 End: 12-17-2016 Appointment Appointment [facility] Work Phone: Start: 12-07-2016 End: 12-07-2016 Appointment Appointment [facility] Work Phone: Start: 12-07-2016 End: 12-14-2016 *MISC - Miscellaneous Lab Test #1 *MISC - Miscellaneous Lab Test #1 [facility] Work Phone: Start: 12-07-2016 End: 12-14-2016 [facility] Work Phone: Start: 12-07-2016 End: 12-14-2016 Follow Up Appt 2 months Follow Up Appt 2 months [facility] Work Phone: Start: 12-07-2016 End: 12-14-2016 Pulmonary Function Test - complete Pulmonary Function Test - complete [facility] Work Phone: Start: 12-07-2016 End: [...] [facility] Work Phone: Start: 12-07-2016 End: 12-14-2016 Pulmonary Function Test - complete Pulmonary Function Test - complete [facility] Work Phone: Start: 12-07-2016 End: 12-14-2016 Pulmonary stress test/simple Pulmonary stress testing; simple (eg, 6-minute walk) [facility] Work Phone: Start: 10-18-2016 End: 10-18-2016 Appointment Appointment [facility] Work Phone: Start: 10-18-2016 End: 10-18-2016 Follow Up Appt 6 months Follow Up Appt 6 months [facility] Work Phone: Start: 10-18-2016 End: 10-18-2016 MMM MMM [facility] Work Phone: Start: 10-18-2016 End: 10-18-2016 Follow Up Appt 6 months Follow Up Appt 6 months [facility] Work Phone: Start: 10-18-2016 End: 10-18-2016 MMM MMM [facility] Work Phone: Start: 04-06-2016 End: 04-06-2016 TANBARK LABORER TANBARK LABORER [facility] Work Phone: Start: 04-06-2016 End: 04-06-2016 Follow Up Appt 6 months Follow Up Appt 6 months [facility] Work Phone: Start: 04-06-2016 End: 04-06-2016 TANBARK LABORER TANBARK LABORER [facility] Work Phone: Start: 04-06-2016 End: 04-06-2016 Follow Up Appt 6 months Follow Up Appt 6 months [facility] Work Phone: Start: 10-04-2015 End: 10-04-2015 Ecg routine ecg w/least 12 lds w/i&r EKG (In office) [facility] Work Phone: Start: 10-04-2015 End: 10-04-2015 Follow Up Appt 6 months Follow Up Appt 6 months [facility] Work Phone: Start: 10-04-2015 End: 10-04-2015 MMM MMM [facility] Work Phone: Start: 10-04-2015 End: 10-04-2015 Electrocardiogram, complete EKG (In office) [facility] Work Phone: Start: 10-04-2015 End: 10-04-2015 Follow Up Appt 6 months Follow Up Appt 6 months [facility] Work Phone: Start: 10-04-2015 End: 10-04-2015 MMM MMM [facility] Work Phone: Start: 05-11-2015 End: 05-16-2015 *BMP *BMP [facility] Work Phone: Start: 05-11-2015 End: 05-16-2015 *BMP *BMP [facility] Work Phone: Start: 03-30-2015 End: 03-31-2015 Ambulatory BP Monitor 24 HR Ambulatory BP Monitor 24 HR [facility] Work Phone: Start: 03-30-2015 End: 03-30-2015 TANBARK LABORER TANBARK LABORER [facility] Work Phone: Start: 03-30-2015 End: 03-30-2015 Follow Up Appt 6 months Follow Up Appt 6 months [facility] Work Phone: Start: 03-30-2015 End: 03-30-2015 Follow Up BP Check Follow Up BP Check [facility] Work Phone: Start: 03-30-2015 End: 03-31-2015 Ambulatory BP Monitor 24 HR Ambulatory BP Monitor 24 HR [facility] Work Phone: Start: 03-30-2015 End: 03-30-2015 TANBARK LABORER TANBARK LABORER [facility] Work Phone: Start: 03-30-2015 End: 03-30-2015 Follow Up Appt 6 months Follow Up Appt 6 months [facility] Work Phone: Start: 03-30-2015 End: 03-30-2015 Follow Up BP Check Follow Up BP Check [facility] Work Phone: Start: 02-09-2015 End: 02-09-2015 Fungus culture *CUF - Culture, Fungus (Only) [id number] [facility] Work Phone: Start: 02-09-2015 End: 02-09-2015 Fungus culture *CUF - Culture, Fungus (Only) [id number] [facility] Work Phone: Start: 09-28-2014 End: 09-30-2014 *Hepatic Function Panel *Hepatic Function Panel [facility] Work Phone: Start: 09-28-2014 End: 09-28-2014 Follow Up Appt 6 months Follow Up Appt 6 months [facility] Work Phone: Start: 09-28-2014 End: 09-28-2014 MMM MMM [facility] Work Phone: Start: 09-28-2014 End: 09-30-2014 Thyroid stimulating hormone (TSH) *TSH [facility] Work Phone: Start: 09-28-2014 End: 09-30-2014 Thyroxine (T4) *T4 (Total) [facility] Work Phone: Start: 09-28-2014 End: 09-30-2014 *Hepatic Function Panel *Hepatic Function Panel [facility] Work Phone: Start: 09-28-2014 End: 09-28-2014 Follow Up Appt 6 months Follow Up Appt 6 months [facility] Work Phone: Start: 09-28-2014 End: 09-28-2014 MMM MMM [facility] Work Phone: Start: 09-28-2014 End: 09-30-2014 Thyroid stimulating hormone (TSH) *TSH [facility] Work Phone: Start: 09-28-2014 End: 09-30-2014 Thyroxine (T4) *T4 (Total) [facility] Work Phone: Start: 08-16-2014 End: 08-16-2014 TANBARK LABORER TANBARK LABORER [facility] Work Phone: Start: 08-16-2014 End: 08-16-2014 Follow Up Appt 6 weeks Follow Up Appt 6 weeks [facility] Work Phone: Start: 08-16-2014 End: 08-16-2014 Pulmonary Function Test - complete Pulmonary Function Test - complete [facility] Work Phone: Start: 08-16-2014 End: 08-16-2014 TANBARK LABORER TANBARK LABORER [facility] Work Phone: Start: 08-16-2014 End: 08-16-2014 Follow Up Appt 6 weeks Follow Up Appt 6 weeks [facility] Work Phone: Start: 08-16-2014 End: 08-16-2014 Pulmonary Function Test - complete Pulmonary Function Test - complete [facility] Work Phone: Start: 07-23-2014 End: 07-23-2014 Radiologic examination pelvis 1/2 views X-Ray, Pelvis [facility] Work Phone: Start: 07-23-2014 End: 07-23-2014 X-ray exam of hip X-Ray, Hip Unilateral [facility] Work Phone: Start: 07-23-2014 End: 07-23-2014 X-ray exam of hip X-Ray, Hip Unilateral [facility] Work Phone: Start: 07-23-2014 End: 07-23-2014 X-ray exam of pelvis X-Ray, Pelvis [facility] Work Phone: Start: 05-18-2014 End: 05-18-2014 *BMP *BMP [facility] Work Phone: Start: 05-18-2014 End: 05-18-2014 *Hepatic Function Panel *Hepatic Function Panel [facility] Work Phone: Start: 05-18-2014 End: 05-18-2014 CBC W Auto Differential panel - Blood *CBC without Diff [facility] Work Phone: Start: 05-18-2014 End: 08-10-2014 Chest x-ray X-Ray, Chest, PA & Lateral [facility] Work Phone: Start: 05-18-2014 End: [...] 05-18-2014 *Hepatic Function Panel *Hepatic Function Panel [facility] Work Phone: Start: 05-18-2014 End: 05-18-2014 CBC W Auto Differential panel - Blood *CBC without Diff [facility] Work Phone: Start: 05-18-2014 End: 08-10-2014 Chest x-ray X-Ray, Chest, PA & Lateral [facility] Work Phone: Start: 05-18-2014 End: 05-18-2014 Electrocardiogram, complete EKG (In office) [facility] Work Phone: Start: 05-18-2014 End: 05-18-2014 Follow Up Appt 3 months Follow Up Appt 3 months [facility] Work Phone: Start: 05-18-2014 End: 05-18-2014 Left Heart Cath Left Heart Cath [facility] Work Phone: Start: 05-18-2014 End: 05-18-2014 MMM MMM [facility] Work Phone: Start: 05-18-2014 End: 05-18-2014 Thyroid stimulating hormone (TSH) *TSH [facility] Work Phone: Start: 05-18-2014 End: 05-18-2014 Thyroxine (T4) *T4 (Total) [facility] Work Phone: Start: 11-19-2013 End: 11-19-2013 TANBARK LABORER TANBARK LABORER [facility] Work Phone: Start: 11-19-2013 End: 11-19-2013 Follow Up Appt 6 months Follow Up Appt 6 months [facility] Work Phone: Start: 11-19-2013 End: 11-19-2013 Follow Up Appt Other Follow Up Appt Other [facility] Work Phone: Start: 11-19-2013 End: 11-19-2013 TANBARK LABORER TANBARK LABORER [facility] Work Phone: Start: 11-19-2013 End: 11-19-2013 Follow Up Appt 6 months Follow Up Appt 6 months [facility] Work Phone: Start: 11-19-2013 End: 11-19-2013 Follow Up Appt Other Follow Up Appt Other [facility] Work Phone: Start: 08-21-2013 End: 08-21-2013 Follow Up Appt 3 months Follow Up Appt 3 months [facility] Work Phone: Start: 08-21-2013 End: 08-21-2013 MMM MMM [facility] Work Phone: Start: 08-21-2013 End: 08-21-2013 Follow Up Appt 3 months Follow Up Appt 3 months [facility] Work Phone: Start: 08-21-2013 End: 08-21-2013 MMM MMM [facility] Work Phone: Start: 08-11-2013 End: 08-11-2013 Follow Up Appt Other Follow Up Appt Other [facility] Work Phone: Start: 08-11-2013 End: 08-11-2013 Follow Up Appt Other Follow Up Appt Other [facility] Work Phone: Start: 07-03-2013 End: 08-11-2013 Ecg routine ecg w/least 12 lds w/i&r EKG (In office) [facility] Work Phone: Start: 07-02-2013 End: 07-03-2013 *BMP *BMP [facility] Work Phone: Start: 07-02-2013 End: 07-03-2013 *CBC with Differential *CBC with Differential [facility] Work Phone: Start: 07-02-2013 End: 07-03-2013 BNP *Brain Natriuretic Peptide BNP [facility] Work Phone: Start: 07-02-2013 End: 07-02-2013 Cardioversion Cardioversion [facility] Work Phone: Start: 07-02-2013 End: 08-11-2013 Electrocardiogram, complete EKG (In office) [facility] Work Phone: Start: 07-02-2013 End: 08-11-2013 Follow Up Appt 2 months Follow Up Appt 2 months [facility] Work Phone: Start: 07-02-2013 End: 08-11-2013 MMM MMM [facility] Work Phone: Start: 07-02-2013 End: 07-03-2013 *BMP *BMP [facility] Work Phone: Start: 07-02-2013 End: 07-03-2013 *CBC with Differential *CBC with Differential [facility] Work Phone: Start: 07-02-2013 End: 07-03-2013 BNP *Brain Natriuretic Peptide BNP [facility] Work Phone: Start: 07-02-2013 End: 07-02-2013 Cardioversion Cardioversion [facility] Work Phone: Start: 07-02-2013 End: 07-02-2013 Electrocardiogram, complete EKG (In office) [facility] Work Phone: Start: 07-02-2013 End: 08-11-2013 Follow Up Appt 2 months Follow Up Appt 2 months [facility] Work Phone: Start: 07-02-2013 End: 08-11-2013 MMM MMM [facility] Work Phone: Start: 05-05-2013 End: 05-05-2013 Follow Up Appt 6 months Follow Up Appt 6 months [facility] Work Phone: Start: 05-05-2013 End: 05-05-2013 MMM MMM [facility] Work Phone: Start: 05-05-2013 End: 05-05-2013 Follow Up Appt 6 months Follow Up Appt 6 months [facility] Work Phone: Start: 05-05-2013 End: 05-05-2013 MMM MMM [facility] Work Phone: Start: 03-19-2013 End: 03-19-2013 TANBARK LABORER TANBARK LABORER [facility] Work Phone: Start: 03-19-2013 End: 03-19-2013 Follow Up Appt 4 months Follow Up Appt 4 months [facility] Work Phone: Start: 03-19-2013 End: 03-19-2013 Nuclear stress test -exercise Nuclear stress test -exercise [facility] Work Phone: Start: 03-19-2013 End: 03-19-2013 TANBARK LABORER TANBARK LABORER [facility] Work Phone: Start: 03-19-2013 End: 03-19-2013 Follow Up Appt 4 months Follow Up Appt 4 months [facility] Work Phone: Start: 03-19-2013 End: 03-19-2013 Nuclear stress test -exercise Nuclear stress test -exercise [facility] Work Phone: Start: 05-26-2012 End: 07-03-2013 Urine culture, bacteria *C&S, Routine Bacteria [facility] Work Phone: Start: 05-26-2012 End: 07-03-2013 Urine culture, bacteria *C&S, Routine Bacteria [facility] Work Phone: Summary Purpose Family [...] BE BASED ON THE PRIMARY CLINICAL RECORDS. [facility]. provides no warranty or guarantee of the accuracy or completeness of information in this document.
== END | disposition home or self-care (01) ==
PROVIDERS: PCP Family Medicine Geriatric Medicine; Referring Provider Orthopaedic Surgery; Visit Provider Orthopaedic Surgery
DX: M17.12 Unilateral primary osteoarthritis, left knee (principal); M79.662 Pain in left lower leg
CPT/HCPCS: 93971

== ENCOUNTER → 2023-05-01 | Outpatient (CLI) | payer MEDICARE, OTHER, SELFPAY ==
[2023-05-01 08:10] VITALS: BP 121/64; PULSE 76; RESP 22; TEMP 36.3; O2SAT 97
[2023-05-01] MEDS: Lidocaine 2% (20 ml mdv) 20 ML Vial INFILT (08:15)
[2023-05-01 08:24] VITALS: BP 111/60; PULSE 85; RESP 20; O2SAT 98
--- NOTE | 2023-05-01 08:25 | RAD_ITS ---
STUDY: X-RAY CHEST REASON FOR EXAM: Female, 83 years old. Post thora TECHNIQUE: AP inspiration and expiration views. COMPARISON: Comparison is made with prior study dated April 24, 2023. FINDINGS: The patient is status post left thoracentesis. Residual pleural-parenchymal changes persist. There is no evidence of pneumothorax. RAD/Chest Insp/Exp 2 View IMPRESSION: No evidence of pneumothorax on the post left thoracentesis images. Electronically Signed: Huey Gomez MD at 9:02 EST ,
[2023-05-01 08:36] VITALS: BP 108/62; PULSE 89; RESP 20; O2SAT 94
--- NOTE | 2023-05-01 08:44 | PCM.OP.PRO ---
Procedure Report Date of Procedure: 05/01/23 Assessment & Plan Assessment/Plan (1) Pleural effusion, left: PLAN: PROCEDURE: Ultrasound Guided Thoracentesis ORDERING PROVIDER: Dr. Douglas INDICATION: Female, 83 years old. Recurrent left pleural effusion. PROVIDER: ANAMIKA Bravo PROCEDURE: The risks, benefits, and alternatives to the procedure were explained to the patient. The specific risks of bleeding, infection, and pneumothorax requiring chest tube insertion were discussed and accepted. Written informed consent was obtained. The patient was placed in the sitting, upright position. Ultrasonographic evaluation of the bilateral lower pleural spaces was carried out. An adequate pocket was identified in the left lower pleural space.The overlying skin was prepped and draped in sterile fashion. 2% lidocaine was administered subcutaneously for local anesthesia. Under ultrasound guidance, a 5-Australian thoracentesis needle/catheter system was advanced into the left posterior lower pleural fluid collection. 990 ml of clear yellow colored fluid was drained. The catheter was removed, and a sterile dressing was applied. The patient tolerated the procedure well. A chest x-ray was ordered. IMPRESSION: Successful ultrasound-guided thoracentesis of recurrent left pleural effusion. Procedures Radiology Radiology US Procedures: [id number] Thoracentesis
== END | disposition home or self-care (01) ==
LOC: US 07:54
PROVIDERS: PCP Family Medicine Geriatric Medicine; Referring Provider Family Medicine Geriatric Medicine; Visit Provider Family Medicine Geriatric Medicine
DX: J90 Pleural effusion, not elsewhere classified (principal)
CPT/HCPCS: 32555; 71046

== ENCOUNTER → 2023-05-03 | Outpatient (CLI) | payer MEDICARE, OTHER, SELFPAY ==
--- NOTE | 2023-05-03 14:48 | CT_ITS ---
INDICATION: RECURRENT LEFT PE EXAMINATION: CT CHEST WITHOUT CONTRAST - CT Chest W/O Contrast Injection TECHNIQUE: Helically acquired images were obtained of the chest. A radiation dose optimization technique was used for this scan. IV Contrast dosage and agent: None. RADIATION DOSAGE (If Supplied By Facility): CTDIvol = ( 19.04 ) mGy, DLP = ( 742.09 ) mGycm COMPARISON: FINDINGS: LUNGS, PLEURA AND LARGE AIRWAYS: Base. Probable No pneumothorax. THYROID: No thyroid lesions. HEART AND PERICARDIUM: Heart size is normal. No pericardial effusion. CORONARY ARTERIES: Coronary artery calcification VESSELS: Thoracic aorta is not dilated. MEDIASTINUM AND JHON: No mediastinal or hilar adenopathy. Esophagus is unremarkable. No hiatal hernia. UPPER ABDOMEN: 2 cm hepatic probable cystic nodule. BONES: No suspicious lytic or blastic abnormality. Increased kyphosis of the thoracic column. Degenerative vertebral changes. CT/Chest without Contrast IMPRESSION: Left pleural effusion with basilar consolidation/atelectasis. Mild patchy right lower lobe infiltrates. Hepatic cystic nodule. Electronically Signed: Roger James DO at 17:01 EST Reading Location ID and State: [id number] / [place] Tel [phone], Service support ,
--- OUTSIDE RECORDS SUMMARY | 2023-05-03 16:34 | XMS RPT_ITS | CCD ---
Author Name Unknown Address [address] [place] [address] Organization [facility] Care Team Providers Care White Metal Caster Name Role Phone Aj Baptiste Unavailable Unavailable Vijaya Arshad Unavailable Unavailable Pat Pa Unavailable Unavailable Roof CHEMICAL TREATMENT OPERATOR, Chad Aden Unavailable Vijaya Arshad Unavailable Unavailable [...] (14 sources) amLODIPine drug allergy 6 constipation [facility] Work Phone: [phone] (14 sources) ascorbic acid / beta carotene / cuprous oxide / vitamin E / zinc oxide drug allergy 6 rash [facility] Work Phone: [phone] (14 sources) doxazosin drug allergy 6 lightheadedness [facility] Work Phone: [phone] (14 sources) fish oil drug allergy 6 rash [facility] Work Phone: [phone] (20 sources) Sulfonamides (Antibiotic) drug allergy 9 Unknown, had a reaction when she was 5 y/o [facility] Work Phone: [phone] (14 sources) OXYBUT drug allergy 6 rash [facility] Work Phone: Medications Completed/Discontinued Medications Medication Drug Class(es) Dates Sig (Normalized) Sig (Original) 200 actuat albuterol 0.09 mg/actuat metered dose inhaler (9 sources) beta2-Adrenergic Agonist Start: 11-16-2016 PROAIR HFA 108 (90 Base) MCG/ACT AERS Two inh every 4 hrs as needed ALBUTEROL SULFATE [id number] Pat Pa Problems Active Problems Problem Classification [...] 40.74 kg/m2 Rina Patel [facility] Work Phone: 01-16-2017 06:47-0400 Body Temperature 98.8 [degF] Rina Patel [facility] Work Phone: 01-16-2017 06:47-0400 BP Diastolic 70 mm[Hg] Rina Patel [facility] Work Phone: 01-16-2017 06:47-0400 BP Systolic 124 mm[Hg] Rina Patel [facility] Work Phone: 01-16-2017 06:47-0400 Height 172.09 cm Rina Patel [facility] Work Phone: 01-16-2017 06:47-0400 Pulse (Heart Rate) 57 /min Rina Patel [facility] Work Phone: 01-16-2017 06:47-0400 Respiratory Rate 18 /min Rina Patel [facility] Work Phone: 01-16-2017 06:47-0400 Weight 120.66 kg Rina Patel [facility] Work Phone: 12-17-2016 10:51-0400 Heart rate 47 [...] 11:13-0400 BMI (Body Mass Index) 42.73 kg/m2 [facility] Work Phone: 12-07-2016 11:13-0400 Body Temperature 98.8 [degF] [facility] Work Phone: 12-07-2016 11:13-0400 BP Diastolic 69 mm[Hg] Pat Thierno [facility] Work Phone: 12-07-2016 11:13-0400 BP Systolic 173 mm[Hg] Pat Thierno [facility] Work Phone: 12-07-2016 11:13-0400 Height 172.09 cm [facility] Work Phone: 12-07-2016 11:13-0400 Pulse (Heart Rate) 51 /[facility] Work Phone: 12-07-2016 11:13-0400 Respiratory Rate 18 /min [facility] Work Phone: 12-07-2016 11:13-0400 Weight 126.55 kg Pat Pa [facility] Work Phone: 10-18-2016 15:41-0400 BMI (Body Mass Index) 41.32 kg/m2 [facility] Work Phone: 10-18-2016 15:41-0400 BP Diastolic 60 mm[Hg] Vijaya Arshad [facility] Work Phone: 10-18-2016 15:41-0400 BP [...] Heart rate 466 ms Mariam Amaral RN [facility] Work Phone: Procedures Date Procedure Procedure Detail Performing Clinician Start: 12-31-2016 End: 01-03-2017 *BMP Chad Woodard CHEMICAL TREATMENT OPERATOR Work Phone: Start: 12-17-2016 End: 12-17-2016 Ecg routine ecg w/least 12 lds w/i&r Chad Woodard CHEMICAL TREATMENT OPERATOR Work Phone: Start: 12-07-2016 End: 12-14-2016 *MISC - Miscellaneous Lab Test #1 Bessy Galan CNP Work Phone: Start: 12-07-2016 End: 12-14-2016 DMB Bessy Galan SENIOR TALENT ACQUISITION SPECIALIST Work Phone: Start: 12-07-2016 End: 12-14-2016 Follow Up Appt 2 months Bessy vallejo SENIOR TALENT ACQUISITION SPECIALIST Work Phone: Start: 12-07-2016 End: 12-14-2016 Pulmonary Function Test - complete Bessy Galan SENIOR TALENT ACQUISITION SPECIALIST Work Phone: Start: 12-07-2016 End: 12-14-2016 Pulmonary stress test/simple Bessy Galan SENIOR TALENT ACQUISITION SPECIALIST Work Phone: Start: 12-07-2016 End: 12-07-2016 Dietary management education, guidance, and counseling Pat Pa Start: 12-07-2016 End: 12-14-2016 *MISC - Miscellaneous Lab Test #1 Bessy Galan SENIOR TALENT ACQUISITION SPECIALIST Work Phone: Start: 12-07-2016 End: 12-14-2016 DMB Bessy Galan SENIOR TALENT ACQUISITION SPECIALIST Work Phone: Start: 12-07-2016 End: 12-14-2016 Follow Up Appt 2 months Bessy Mahoney Marlene genevieve SENIOR TALENT ACQUISITION SPECIALIST Work Phone: Start: 12-07-2016 End: 12-14-2016 Pulmonary Function Test - complete Bessy Galan SENIOR TALENT ACQUISITION SPECIALIST Work Phone: Start: 12-07-2016 End: 12-14-2016 Pulmonary stress test/simple Bessy Galan SENIOR TALENT ACQUISITION SPECIALIST Work Phone: Start: 10-18-2016 End: 10-18-2016 Follow [...] PA-C Work Phone: Start: 03-30-2015 End: 03-30-2015 [employer] WHIP[employer] Mitali Hagen PA-C Work Phone: Start: 03-30-2015 End: 03-30-2015 Follow Up Appt 6 months Mitali Hagen PA-C Work Phone: Start: 03-30-2015 End: 03-30-2015 Follow Up BP Check Mitali Hagen PA-C Work Phone: Start: 03-30-2015 End: 04-03-2016 Ambulatory BP Monitor 24 HR Mitali Hagen PA-C Work Phone: Start: 03-30-2015 End: 03-30-2015 [employer] WHIP[employer] Mitali Hagen PA-C Work Phone: Start: 03-30-2015 [...] End: 09-28-2014 Follow Up Appt 6 months eWi Adamson Start: 09-28-2014 End: 09-28-2014 MMM Roosevelt Tesfaye MD Start: 09-28-2014 End: 09-30-2014 Thyroid stimulating hormone (TSH) Roosevelt Tesfaye MD Start: 09-28-2014 End: 09-30-2014 Thyroxine (T4) Roosevelt Tesfaye MD Start: 08-16-2014 End: 08-16-2014 [employer] Mitali Hagen PA-C Work Phone: Start: 08-16-2014 End: 08-17-2014 Documentation of current medications Mitali Hagen PA-C Work Phone: Start: 08-16-2014 End: 08-16-2014 Follow Up Appt 6 weeks Mitali Hagen PA-C Work Phone: Start: 08-16-2014 End: 08-27-2014 Pulmonary Function Test - complete Mitali Hagen PA-C Work Phone: Start: 08-16-2014 End: 08-16-2014 WO[employer] WHIP[employer] Mitali Hagen PA-C Work Phone: Start: 08-16-2014 [...] Start: 05-18-2014 End: 08-10-2014 Left Heart Cath Roosevetl Tesfaye MD Start: 05-18-2014 End: 05-18-2014 MMM [...] MMWei Tesfaye MD Start: 03-19-2013 End: 03-19-2013 WO[employer] WHIPPER KELLEY Sol[facility] Work Phone: Start: 03-19-2013 End: 03-19-2013 Follow Up Appt 4 months Mitali Hagen PA-C Work Phone: Start: 03-19-2013 End: 08-11-2013 Nuclear stress test -exercise Mitali Hagen PA-C Work Phone: Start: 03-19-2013 End: 03-19-2013 [employer] WH[employer] Mitali Hagen PA-C Work Phone: Start: 03-19-2013 [...] End: 07-15-2017 Appointment Appointment [facility] Work Phone: Start: 05-02-2017 End: 05-02-2017 Appointment Appointment [facility] Work Phone: Start: 01-30-2017 End: 01-30-2017 Appointment Appointment [facility] Work Phone: Start: 01-16-2017 End: 01-16-2017 [facility] Work Phone: Start: 01-16-2017 End: 01-16-2017 Follow Up Appt 6 months Follow Up Appt 6 months [facility] Work Phone: Start: 01-16-2017 End: 01-16-2017 Appointment Appointment [facility] Work Phone: Start: 12-31-2016 End: 01-03-2017 *BMP *BMP [facility] Work Phone: Start: 12-31-2016 End: 12-17-2016 *BMP *BMP [facility] Work Phone: Start: 12-17-2016 End: 12-17-2016 Appointment Appointment [facility] Work Phone: Start: 12-07-2016 End: 12-07-2016 Appointment Appointment [facility] Work Phone: Start: 12-07-2016 End: 12-14-2016 *MISC - Miscellaneous Lab Test #1 *MISC - Miscellaneous Lab Test #1 [facility] Work Phone: Start: 12-07-2016 End: 12-14-2016 [facility] Work Phone: Start: 12-07-2016 End: 12-14-2016 Follow Up Appt 2 months Follow Up Appt 2 months [facility] Work Phone: Start: 12-07-2016 End: 12-14-2016 Pulmonary Function Test - complete Pulmonary Function Test - complete [facility] Work Phone: Start: 12-07-2016 End: [...] - complete Pulmonary Function Test - complete [facility] Work Phone: Start: 12-07-2016 End: 12-14-2016 Pulmonary stress test/simple Pulmonary stress testing; simple (eg, 6-minute walk) [facility] Work Phone: Start: 10-18-2016 End: 10-18-2016 Appointment Appointment [facility] Work Phone: Start: 10-18-2016 End: 10-18-2016 Follow Up Appt 6 months Follow Up Appt 6 months [facility] Work Phone: Start: 10-18-2016 End: 10-18-2016 MMM MMM [facility] Work Phone: Start: 10-18-2016 End: 10-18-2016 Follow Up Appt 6 months Follow Up Appt 6 months [facility] Work Phone: Start: 10-18-2016 End: 10-18-2016 MMM MMM [facility] Work Phone: Start: 04-06-2016 End: 04-06-2016 [employer] WHIP[employer] [facility] Work Phone: Start: 04-06-2016 End: 04-06-2016 Follow Up Appt 6 months Follow Up Appt 6 months [facility] Work Phone: Start: 04-06-2016 End: 04-06-2016 [employer] WHIPPER [employer] [facility] Work Phone: Start: 04-06-2016 End: 04-06-2016 Follow Up Appt 6 months Follow Up Appt 6 months [facility] Work Phone: Start: 10-04-2015 End: 10-04-2015 Ecg routine ecg w/least 12 lds w/i&r EKG (In office) [facility] Work Phone: Start: 10-04-2015 End: 10-04-2015 Follow Up Appt 6 months Follow Up Appt 6 months [facility] Work Phone: Start: 10-04-2015 End: 10-04-2015 MMM MMM [facility] Work Phone: Start: 10-04-2015 End: 10-04-2015 Electrocardiogram, complete EKG (In office) [facility] Work Phone: Start: 10-04-2015 End: 10-04-2015 Follow Up Appt 6 months Follow Up Appt 6 months [facility] Work Phone: Start: 10-04-2015 End: 10-04-2015 MMM MMM [facility] Work Phone: Start: 05-11-2015 End: 05-16-2015 *BMP *BMP [facility] Work Phone: Start: 05-11-2015 End: 05-16-2015 *BMP *BMP [facility] Work Phone: Start: 03-30-2015 End: 03-31-2015 Ambulatory BP Monitor 24 HR Ambulatory BP Monitor 24 HR [facility] Work Phone: Start: 03-30-2015 End: 03-30-2015 WO[employer] WHIPPER [employer] [facility] Work Phone: Start: 03-30-2015 End: 03-30-2015 Follow Up Appt 6 months Follow Up Appt 6 months [facility] Work Phone: Start: 03-30-2015 End: 03-30-2015 Follow Up BP Check Follow Up BP Check [facility] Work Phone: Start: 03-30-2015 End: 03-31-2015 Ambulatory BP Monitor 24 HR Ambulatory BP Monitor 24 HR [facility] Work Phone: Start: 03-30-2015 End: 03-30-2015 WO[employer] WHIPPER [employer] [facility] Work Phone: Start: 03-30-2015 End: 03-30-2015 Follow Up Appt 6 months Follow Up Appt 6 months [facility] Work Phone: Start: 03-30-2015 End: 03-30-2015 Follow Up BP Check Follow Up BP Check [facility] Work Phone: Start: 02-09-2015 End: 02-09-2015 Fungus culture *CUF - Culture, Fungus (Only) [id number] [facility] Work Phone: Start: 02-09-2015 End: 02-09-2015 Fungus culture *CUF - Culture, Fungus (Only) [id number] [facility] Work Phone: Start: 09-28-2014 End: 09-30-2014 *Hepatic Function Panel *Hepatic Function Panel [facility] Work Phone: Start: 09-28-2014 End: 09-28-2014 Follow Up Appt 6 months Follow Up Appt 6 months [facility] Work Phone: Start: 09-28-2014 End: 09-28-2014 MMM MMM [facility] Work Phone: Start: 09-28-2014 End: 09-30-2014 Thyroid stimulating hormone (TSH) *TSH [facility] Work Phone: Start: 09-28-2014 End: 09-30-2014 Thyroxine (T4) *T4 (Total) [facility] Work Phone: Start: 09-28-2014 End: 09-30-2014 *Hepatic Function Panel *Hepatic Function Panel [facility] Work Phone: Start: 09-28-2014 End: 09-28-2014 Follow Up Appt 6 months Follow Up Appt 6 months [facility] Work Phone: Start: 09-28-2014 End: 09-28-2014 MMM MMM [facility] Work Phone: Start: 09-28-2014 End: 09-30-2014 Thyroid stimulating hormone (TSH) *TSH [facility] Work Phone: Start: 09-28-2014 End: 09-30-2014 Thyroxine (T4) *T4 (Total) [facility] Work Phone: Start: 08-16-2014 End: 08-16-2014 WOOD [employer] NECK WHIPPER WO[employer] WHIPPER [facility] Work Phone: Start: 08-16-2014 End: 08-16-2014 Follow Up Appt 6 weeks Follow Up Appt 6 weeks [facility] Work Phone: Start: 08-16-2014 End: 08-16-2014 Pulmonary Function Test - complete Pulmonary Function Test - complete [facility] Work Phone: Start: 08-16-2014 End: 08-16-2014 WO[employer] NEC[employer] WHIPPER [employer] [facility] Work Phone: Start: 08-16-2014 End: 08-16-2014 Follow Up Appt 6 weeks Follow Up Appt 6 weeks [facility] Work Phone: Start: 08-16-2014 End: 08-16-2014 Pulmonary Function Test - complete Pulmonary Function Test - complete [facility] Work Phone: Start: 07-23-2014 End: 07-23-2014 Radiologic examination pelvis 1/2 views X-Ray, Pelvis [facility] Work Phone: Start: 07-23-2014 End: 07-23-2014 X-ray exam of hip X-Ray, Hip Unilateral [facility] Work Phone: Start: 07-23-2014 End: 07-23-2014 X-ray exam of hip X-Ray, Hip Unilateral [facility] Work Phone: Start: 07-23-2014 End: 07-23-2014 X-ray exam of pelvis X-Ray, Pelvis [facility] Work Phone: Start: 05-18-2014 End: 05-18-2014 *BMP *BMP [facility] Work Phone: Start: 05-18-2014 End: 05-18-2014 *Hepatic Function Panel *Hepatic Function Panel [facility] Work Phone: Start: 05-18-2014 End: 05-18-2014 CBC W Auto Differential panel - Blood *CBC without Diff [facility] Work Phone: Start: 05-18-2014 End: 08-10-2014 Chest x-ray X-Ray, Chest, PA & Lateral [facility] Work Phone: Start: 05-18-2014 End: [...] 05-18-2014 *Hepatic Function Panel *Hepatic Function Panel [facility] Work Phone: Start: 05-18-2014 End: 05-18-2014 CBC W Auto Differential panel - Blood *CBC without Diff [facility] Work Phone: Start: 05-18-2014 End: 08-10-2014 Chest x-ray X-Ray, Chest, PA & Lateral [facility] Work Phone: Start: 05-18-2014 End: 05-18-2014 Electrocardiogram, complete EKG (In office) [facility] Work Phone: Start: 05-18-2014 End: 05-18-2014 Follow Up Appt 3 months Follow Up Appt 3 months [facility] Work Phone: Start: 05-18-2014 End: 05-18-2014 Left Heart Cath Left Heart Cath [facility] Work Phone: Start: 05-18-2014 End: 05-18-2014 MMM MMM [facility] Work Phone: Start: 05-18-2014 End: 05-18-2014 Thyroid stimulating hormone (TSH) *TSH [facility] Work Phone: Start: 05-18-2014 End: 05-18-2014 Thyroxine (T4) *T4 (Total) [facility] Work Phone: Start: 11-19-2013 End: 11-19-2013 WO[employer] NECK WHIPPER WO[employer] WHIPPER [facility] Work Phone: Start: 11-19-2013 End: 11-19-2013 Follow Up Appt 6 months Follow Up Appt 6 months [facility] Work Phone: Start: 11-19-2013 End: 11-19-2013 Follow Up Appt Other Follow Up Appt Other [facility] Work Phone: Start: 11-19-2013 End: 11-19-2013 WO[employer]EC[employer] WHIPPER [employer] [facility] Work Phone: Start: 11-19-2013 End: 11-19-2013 Follow Up Appt 6 months Follow Up Appt 6 months [facility] Work Phone: Start: 11-19-2013 End: 11-19-2013 Follow Up Appt Other Follow Up Appt Other [facility] Work Phone: Start: 08-21-2013 End: 08-21-2013 Follow Up Appt 3 months Follow Up Appt 3 months [facility] Work Phone: Start: 08-21-2013 End: 08-21-2013 MMM MMM [facility] Work Phone: Start: 08-21-2013 End: 08-21-2013 Follow Up Appt 3 months Follow Up Appt 3 months [facility] Work Phone: Start: 08-21-2013 End: 08-21-2013 MMM MMM [facility] Work Phone: Start: 08-11-2013 End: 08-11-2013 Follow Up Appt Other Follow Up Appt Other [facility] Work Phone: Start: 08-11-2013 End: 08-11-2013 Follow Up Appt Other Follow Up Appt Other [facility] Work Phone: Start: 07-03-2013 End: 08-11-2013 Ecg routine ecg w/least 12 lds w/i&r EKG (In office) [facility] Work Phone: Start: 07-02-2013 End: 07-03-2013 *BMP *BMP [facility] Work Phone: Start: 07-02-2013 End: 07-03-2013 *CBC with Differential *CBC with Differential [facility] Work Phone: Start: 07-02-2013 End: 07-03-2013 BNP *Brain Natriuretic Peptide BNP [facility] Work Phone: Start: 07-02-2013 End: 07-02-2013 Cardioversion Cardioversion [facility] Work Phone: Start: 07-02-2013 End: 08-11-2013 Electrocardiogram, complete EKG (In office) [facility] Work Phone: Start: 07-02-2013 End: 08-11-2013 Follow Up Appt 2 months Follow Up Appt 2 months [facility] Work Phone: Start: 07-02-2013 End: 08-11-2013 MMM MMM [facility] Work Phone: Start: 07-02-2013 End: 07-03-2013 *BMP *BMP [facility] Work Phone: Start: 07-02-2013 End: 07-03-2013 *CBC with Differential *CBC with Differential [facility] Work Phone: Start: 07-02-2013 End: 07-03-2013 BNP *Brain Natriuretic Peptide BNP [facility] Work Phone: Start: 07-02-2013 End: 07-02-2013 Cardioversion Cardioversion [facility] Work Phone: Start: 07-02-2013 End: 07-02-2013 Electrocardiogram, complete EKG (In office) [facility] Work Phone: Start: 07-02-2013 End: 08-11-2013 Follow Up Appt 2 months Follow Up Appt 2 months [facility] Work Phone: Start: 07-02-2013 End: 08-11-2013 MMM MMM [facility] Work Phone: Start: 05-05-2013 End: 05-05-2013 Follow Up Appt 6 months Follow Up Appt 6 months [facility] Work Phone: Start: 05-05-2013 End: 05-05-2013 MMM MMM [facility] Work Phone: Start: 05-05-2013 End: 05-05-2013 Follow Up Appt 6 months Follow Up Appt 6 months [facility] Work Phone: Start: 05-05-2013 End: 05-05-2013 MMM MMM [facility] Work Phone: Start: 03-19-2013 End: 03-19-2013 WO[employer] NECK WHIPPER [employer] WH[employer]PER [facility] Work Phone: Start: 03-19-2013 End: 03-19-2013 Follow Up Appt 4 months Follow Up Appt 4 months [facility] Work Phone: Start: 03-19-2013 End: 03-19-2013 Nuclear stress test -exercise Nuclear stress test -exercise [facility] Work Phone: Start: 03-19-2013 End: 03-19-2013 WO[employer] NEC[employer] WHIPPER [employer] [facility] Work Phone: Start: 03-19-2013 End: 03-19-2013 Follow Up Appt 4 months Follow Up Appt 4 months [facility] Work Phone: Start: 03-19-2013 End: 03-19-2013 Nuclear stress test -exercise Nuclear stress test -exercise [facility] Work Phone: Start: 05-26-2012 End: 07-03-2013 Urine culture, bacteria *C&S, Routine Bacteria [facility] Work Phone: Start: 05-26-2012 End: 07-03-2013 Urine culture, bacteria *C&S, Routine Bacteria [facility] Work Phone: Summary Purpose Family [...] BE BASED ON THE PRIMARY CLINICAL RECORDS. [employer] [facility]. provides no warranty or guarantee of the accuracy or completeness of information in this document.
== END | disposition home or self-care (01) ==
LOC: CT 14:43
PROVIDERS: PCP Family Medicine Geriatric Medicine
DX: J90 Pleural effusion, not elsewhere classified (principal)
CPT/HCPCS: 71250

== ENCOUNTER 2023-05-13 11:56 | Outpatient (CLI) | payer MEDICARE, OTHER, SELFPAY ==
[2023-05-13 12:14] VITALS: BP 133/58; PULSE 83; RESP 16; O2SAT 95
[2023-05-13 12:15] VITALS: BP 131/68; PULSE 84; RESP 16; O2SAT 96
[2023-05-13] MEDS: Lidocaine 2% (20 ml mdv) 20 ML Vial INFILT (12:18)
[2023-05-13 12:20] VITALS: BP 120/55; PULSE 86; RESP 16; O2SAT 96
[2023-05-13 12:25] VITALS: BP 127/56; PULSE 83; RESP 16; O2SAT 95
[2023-05-13 12:30] VITALS: BP 117/59; PULSE 81; RESP 16; O2SAT 94
[2023-05-13 12:35] VITALS: BP 121/58; PULSE 82; RESP 16; O2SAT 95
--- NOTE | 2023-05-13 12:38 | RAD_ITS ---
STUDY: X-RAY CHEST REASON FOR EXAM: Female, 83 years old. Immediately post thoracentesis TECHNIQUE: AP and inspiration expiration views. COMPARISON: Comparison is made with prior study dated May 01, 2023. FINDINGS: Status post left thoracentesis. There is no evidence of pneumothorax. Mild degree of residual pleural parenchymal changes at the left lung base . RAD/Chest Insp/Exp 2 View IMPRESSION: No evidence of pneumothorax on the post left thoracentesis examination. Electronically Signed: Huey Gomez MD at 13:06 EST ,
--- NOTE | 2023-05-13 12:48 | PRO.PCM_ITS ---
Procedure Report Date of Procedure: 05/13/23 Assessment & Plan Assessment/Plan (1) Pleural effusion, left: PLAN: PROCEDURE: Ultrasound Guided Thoracentesis ORDERING PROVIDER: Dr. Douglas INDICATION: Female, 83 years old. Recurrent left pleural effusion. PROVIDER: ANAMIKA Bravo PROCEDURE: The risks, benefits, and alternatives to the procedure were explained to the patient. The specific risks of bleeding, infection, and pneumothorax requiring chest tube insertion were discussed and accepted. Written informed consent was obtained. The patient was placed in the sitting, upright position. Ultrasonographic evaluation of the bilateral lower pleural spaces was carried out. An adequate pocket was identified in the left lower pleural space.The overlying skin was prepped and draped in sterile fashion. 2% lidocaine was administered subcutaneously for local anesthesia. Under ultrasound guidance, a 5-[place] thoracentesis needle/catheter system was advanced into the left posterior lower pleural fluid collection. 1290 ml of clear yellow colored fluid was drained. The catheter was removed, and a sterile dressing was applied. The patient tolerated the procedure well. A chest x-ray was ordered. IMPRESSION: Successful ultrasound-guided thoracentesis of recurrent left pleural effusion. Procedures Radiology Radiology US Procedures: 19184 Thoracentesis
--- OUTSIDE RECORDS SUMMARY | 2023-05-13 20:25 | XMS RPT_ITS | CCD ---
Author Name Unknown Address [address] [place] [address] Organization [facility] Care Team Providers Care Energy Auditor Name Role Phone Aj Baptiste Unavailable Unavailable Vijaya Arshad Unavailable Unavailable Pat Pa Unavailable Unavailable Roof HELPER SHEAR OPERATOR, Chad Aden Unavailable Vijaya Arshad Unavailable [...] (14 sources) amLODIPine drug allergy 6 constipation [facility] Work Phone: [phone] (14 sources) ascorbic acid / beta carotene / cuprous oxide / vitamin E / zinc oxide drug allergy 6 rash [facility] Work Phone: [phone] (14 sources) doxazosin drug allergy 6 lightheadedness [facility] Work Phone: [phone] (14 sources) fish oil drug allergy 6 rash [facility] Work Phone: [phone] (20 sources) Sulfonamides (Antibiotic) drug allergy 9 Unknown, had a reaction when she was 5 y/o [facility] Work Phone: [phone] (14 sources) OXYBUT drug allergy 6 rash [facility] Work Phone: Medications Completed/Discontinued Medications Medication Drug Class(es) Dates Sig (Normalized) Sig (Original) 200 actuat albuterol 0.09 mg/actuat metered dose inhaler (9 sources) beta2-Adrenergic Agonist Start: 11-16-2016 PROAIR HFA 108 (90 Base) MCG/ACT AERS Two inh every 4 hrs as needed ALBUTEROL SULFATE [id number] Pat Pa Problems Active Problems Problem Classification [...] 40.74 kg/m2 Rina Patel [facility] Work Phone: 01-16-2017 06:47-0400 Body Temperature 98.8 [degF] Rina Patel [facility] Work Phone: 01-16-2017 06:47-0400 BP Diastolic 70 mm[Hg] Rina Patel [facility] Work Phone: 01-16-2017 06:47-0400 BP Systolic 124 mm[Hg] Rina Patel [facility] Work Phone: 01-16-2017 06:47-0400 Height 172.09 cm Rina Patel [facility] Work Phone: 01-16-2017 06:47-0400 Pulse (Heart Rate) 57 /min Rina Patel [facility] Work Phone: 01-16-2017 06:47-0400 Respiratory Rate 18 /min Rina Patel [facility] Work Phone: 01-16-2017 06:47-0400 Weight 120.66 kg Rina Patel [facility] Work Phone: 12-17-2016 10:51-0400 Heart rate 47 [...] [facility] Work Phone: 12-07-2016 11:13-0400 Body Temperature 98.8 [degF] [facility] Work Phone: 12-07-2016 11:13-0400 BP Diastolic 69 mm[Hg] Pat Thierno [facility] Work Phone: 12-07-2016 11:13-0400 BP Systolic 173 mm[Hg] Pat Thierno [facility] Work Phone: 12-07-2016 11:13-0400 Height 172.09 cm [facility] Work Phone: 12-07-2016 11:13-0400 Pulse (Heart Rate) 51 /min [facility] Work Phone: 12-07-2016 11:13-0400 Respiratory Rate 18 /min [facility] Work Phone: 12-07-2016 11:13-0400 Weight 126.55 kg Pat Pa [facility] Work Phone: 10-18-2016 15:41-0400 BMI (Body Mass Index) 41.32 kg/m2 [facility]ij[facility] Work Phone: 10-18-2016 15:41-0400 BP Diastolic 60 mm[Hg] Vijaya Arshad [facility] Work Phone: 10-18-2016 15:41-0400 BP [...] Heart rate 466 ms Mariam Amaral RN [facility] Work Phone: Procedures Date Procedure Procedure Detail Performing Clinician Start: 12-31-2016 End: 01-03-2017 *BMP Chad Woodard HELPER SHEAR OPERATOR Work Phone: Start: 12-17-2016 End: 12-17-2016 Ecg routine ecg w/least 12 lds w/i&r Chad Woodard HELPER SHEAR OPERATOR Work Phone: Start: 12-07-2016 End: 12-14-2016 *MISC - Miscellaneous Lab Test #1 Bessy Galan CNP Work Phone: Start: 12-07-2016 End: 12-14-2016 DMB Bessy Galan ICHTHYOLOGIST Work Phone: Start: 12-07-2016 End: 12-14-2016 Follow Up Appt 2 months Bessy vallejo ICHTHYOLOGIST Work Phone: Start: 12-07-2016 End: 12-14-2016 Pulmonary Function Test - complete Bessy Galan ICHTHYOLOGIST Work Phone: Start: 12-07-2016 End: 12-14-2016 Pulmonary stress test/simple Bessy Galan ICHTHYOLOGIST Work Phone: Start: 12-07-2016 End: 12-07-2016 Dietary management education, guidance, and counseling Pat Pa Start: 12-07-2016 End: 12-14-2016 *MISC - Miscellaneous Lab Test #1 Bessy Galan ICHTHYOLOGIST Work Phone: Start: 12-07-2016 End: 12-14-2016 DMB Bessy Galan ICHTHYOLOGIST Work Phone: Start: 12-07-2016 End: 12-14-2016 Follow Up Appt 2 months Bessy Mahoney Marlene genevieve ICHTHYOLOGIST Work Phone: Start: 12-07-2016 End: 12-14-2016 Pulmonary Function Test - complete Bessy Galan ICHTHYOLOGIST Work Phone: Start: 12-07-2016 End: 12-14-2016 Pulmonary stress test/simple Bessy Galan ICHTHYOLOGIST Work Phone: Start: 10-18-2016 End: 10-18-2016 Follow [...] PA-C Work Phone: Start: 03-30-2015 End: 03-30-[address] [employer] Mitali Hagen PA-C Work Phone: Start: 03-30-2015 End: 03-30-2015 Follow Up Appt 6 months Mitali Hagen PA-C Work Phone: Start: 03-30-2015 End: 03-30-2015 Follow Up BP Check Mitali Hagen PA-C Work Phone: Start: 03-30-2015 End: 04-03-2016 Ambulatory BP Monitor 24 HR Mitali Hagen PA-C Work Phone: Start: 03-30-2015 End: 03-30-[address] [employer] Mitali Hagen PA-C Work Phone: Start: 03-30-2015 [...] Roosevelt Tesfaye MD Start: 08-16-2014 End: 08-16-[address] [employer] Mitali Hagen PA-C Work Phone: Start: 08-16-2014 End: 08-17-2014 Documentation of current medications Mitali Hagen PA-C Work Phone: Start: 08-16-2014 End: 08-16-2014 Follow Up Appt 6 weeks Mitali Hagen PA-C Work Phone: Start: 08-16-2014 End: 08-27-2014 Pulmonary Function Test - complete Mitali Hagen PA-C Work Phone: Start: 08-16-2014 End: 08-16-[address] [employer] Mitali Hagen PA-C Work Phone: Start: 08-16-2014 [...] End: 05-05-2013 Follow Up Appt 6 months Wie Adamson Start: 05-05-2013 End: 05-05-2013 MMWei Tesfaye MD Start: 03-19-2013 End: 03-19-[address] [employer] KELLEY SolitarioC Work Phone: Start: 03-19-2013 End: 03-19-2013 Follow Up Appt 4 months Mitali Hagen PA-C Work Phone: Start: 03-19-2013 End: 08-11-2013 Nuclear stress test -exercise Mitali Hagen PA-C Work Phone: Start: 03-19-2013 End: 03-19-[address] [employer] Mitali Hagen PA-C Work Phone: Start: 03-19-2013 [...] End: 07-15-2017 Appointment Appointment [facility] Work Phone: Start: 05-02-2017 End: 05-02-2017 Appointment Appointment [facility] Work Phone: Start: 01-30-2017 End: 01-30-2017 Appointment Appointment [facility] Work Phone: Start: 01-16-2017 End: 01-16-2017 [facility] Work Phone: Start: 01-16-2017 End: 01-16-2017 Follow Up Appt 6 months Follow Up Appt 6 months [facility] Work Phone: Start: 01-16-2017 End: 01-16-2017 Appointment Appointment [facility] Work Phone: Start: 12-31-2016 End: 01-03-2017 *BMP *BMP [facility] Work Phone: Start: 12-31-2016 End: 12-17-2016 *BMP *BMP [facility] Work Phone: Start: 12-17-2016 End: 12-17-2016 Appointment Appointment [facility] Work Phone: Start: 12-07-2016 End: 12-07-2016 Appointment Appointment [facility] Work Phone: Start: 12-07-2016 End: 12-14-2016 *MISC - Miscellaneous Lab Test #1 *MISC - Miscellaneous Lab Test #1 [facility] Work Phone: Start: 12-07-2016 End: 12-14-2016 [facility] Work Phone: Start: 12-07-2016 End: 12-14-2016 Follow Up Appt 2 months Follow Up Appt 2 months Maruo [facility] [employer] Work Phone: Start: 12-07-2016 End: 12-14-2016 Pulmonary Function Test - complete Pulmonary Function Test - complete [facility] Work Phone: Start: 12-07-2016 End: [...] - complete Pulmonary Function Test - complete [facility] Work Phone: Start: 12-07-2016 End: 12-14-2016 Pulmonary stress test/simple Pulmonary stress testing; simple (eg, 6-minute walk) [facility] Work Phone: Start: 10-18-2016 End: 10-18-2016 Appointment Appointment [facility] Work Phone: Start: 10-18-2016 End: 10-18-2016 Follow Up Appt 6 months Follow Up Appt 6 months [facility] Work Phone: Start: 10-18-2016 End: 10-18-2016 MMM MMM [facility] Work Phone: Start: 10-18-2016 End: 10-18-2016 Follow Up Appt 6 months Follow Up Appt 6 months [facility] Work Phone: Start: 10-18-2016 End: 10-18-2016 MMM MMM [facility] Work Phone: Start: 04-06-2016 End: 04-06-[address] [employer] [address] [employer] [facility] Work Phone: Start: 04-06-2016 End: 04-06-2016 Follow Up Appt 6 months Follow Up Appt 6 months [facility] Work Phone: Start: 04-06-2016 End: 04-06-[address] [employer] [address] [employer] [facility] Work Phone: Start: 04-06-2016 End: 04-06-2016 Follow Up Appt 6 months Follow Up Appt 6 months [facility] Work Phone: Start: 10-04-2015 End: 10-04-2015 Ecg routine ecg w/least 12 lds w/i&r EKG (In office) [facility] Work Phone: Start: 10-04-2015 End: 10-04-2015 Follow Up Appt 6 months Follow Up Appt 6 months [facility] Work Phone: Start: 10-04-2015 End: 10-04-2015 MMM MMM [facility] Work Phone: Start: 10-04-2015 End: 10-04-2015 Electrocardiogram, complete EKG (In office) [facility] Work Phone: Start: 10-04-2015 End: 10-04-2015 Follow Up Appt 6 months Follow Up Appt 6 months [facility] Work Phone: Start: 10-04-2015 End: 10-04-2015 MMM MMM [facility] Work Phone: Start: 05-11-2015 End: 05-16-2015 *BMP *BMP [facility] Work Phone: Start: 05-11-2015 End: 05-16-2015 *BMP *BMP [facility] Work Phone: Start: 03-30-2015 End: 03-31-2015 Ambulatory BP Monitor 24 HR Ambulatory BP Monitor 24 HR [facility] Work Phone: Start: 03-30-2015 End: 03-30-[address] [employer] [address] [employer] [facility] Work Phone: Start: 03-30-2015 End: 03-30-2015 Follow Up Appt 6 months Follow Up Appt 6 months [facility] Work Phone: Start: 03-30-2015 End: 03-30-2015 Follow Up BP Check Follow Up BP Check [facility] Work Phone: Start: 03-30-2015 End: 03-31-2015 Ambulatory BP Monitor 24 HR Ambulatory BP Monitor 24 HR [facility] Work Phone: Start: 03-30-2015 End: 03-30-[address] [employer] [address] [employer] [employer] [facility] Work Phone: Start: 03-30-2015 End: 03-30-2015 Follow Up Appt 6 months Follow Up Appt 6 months [facility] Work Phone: Start: 03-30-2015 End: 03-30-2015 Follow Up BP Check Follow Up BP Check [facility] Work Phone: Start: 02-09-2015 End: 02-09-2015 Fungus culture *CUF - Culture, Fungus (Only) [id number] [facility] Work Phone: Start: 02-09-2015 End: 02-09-2015 Fungus culture *CUF - Culture, Fungus (Only) [id number] [facility] Work Phone: Start: 09-28-2014 End: 09-30-2014 *Hepatic Function Panel *Hepatic Function Panel [facility] Work Phone: Start: 09-28-2014 End: 09-28-2014 Follow Up Appt 6 months Follow Up Appt 6 months [facility] Work Phone: Start: 09-28-2014 End: 09-28-2014 MMM MMM [facility] Work Phone: Start: 09-28-2014 End: 09-30-2014 Thyroid stimulating hormone (TSH) *TSH [facility] Work Phone: Start: 09-28-2014 End: 09-30-2014 Thyroxine (T4) *T4 (Total) [facility] Work Phone: Start: 09-28-2014 End: 09-30-2014 *Hepatic Function Panel *Hepatic Function Panel [facility] Work Phone: Start: 09-28-2014 End: 09-28-2014 Follow Up Appt 6 months Follow Up Appt 6 months [facility] Work Phone: Start: 09-28-2014 End: 09-28-2014 MMM MMM [facility] Work Phone: Start: 09-28-2014 End: 09-30-2014 Thyroid stimulating hormone (TSH) *TSH [facility] Work Phone: Start: 09-28-2014 End: 09-30-2014 Thyroxine (T4) *T4 (Total) [facility] Work Phone: Start: 08-16-2014 End: 08-16-[address] [employer] [address] [employer] [employer] [facility] Work Phone: Start: 08-16-2014 End: 08-16-2014 Follow Up Appt 6 weeks Follow Up Appt 6 weeks [facility] Work Phone: Start: 08-16-2014 End: 08-16-2014 Pulmonary Function Test - complete Pulmonary Function Test - complete [facility] Work Phone: Start: 08-16-2014 End: 08-16-[address] [employer] [address] [employer] [facility] Work Phone: Start: 08-16-2014 End: 08-16-2014 Follow Up Appt 6 weeks Follow Up Appt 6 weeks [facility] Work Phone: Start: 08-16-2014 End: 08-16-2014 Pulmonary Function Test - complete Pulmonary Function Test - complete [facility] Work Phone: Start: 07-23-2014 End: 07-23-2014 Radiologic examination pelvis 1/2 views X-Ray, Pelvis [facility] Work Phone: Start: 07-23-2014 End: 07-23-2014 X-ray exam of hip X-Ray, Hip Unilateral [facility] Work Phone: Start: 07-23-2014 End: 07-23-2014 X-ray exam of hip X-Ray, Hip Unilateral [facility] Work Phone: Start: 07-23-2014 End: 07-23-2014 X-ray exam of pelvis X-Ray, Pelvis [facility] Work Phone: Start: 05-18-2014 End: 05-18-2014 *BMP *BMP [facility] Work Phone: Start: 05-18-2014 End: 05-18-2014 *Hepatic Function Panel *Hepatic Function Panel [facility] Work Phone: Start: 05-18-2014 End: 05-18-2014 CBC W Auto Differential panel - Blood *CBC without Diff [facility] Work Phone: Start: 05-18-2014 End: 08-10-2014 Chest x-ray X-Ray, Chest, PA & Lateral [facility] Work Phone: Start: 05-18-2014 End: [...] 05-18-2014 *Hepatic Function Panel *Hepatic Function Panel [facility] Work Phone: Start: 05-18-2014 End: 05-18-2014 CBC W Auto Differential panel - Blood *CBC without Diff [facility] Work Phone: Start: 05-18-2014 End: 08-10-2014 Chest x-ray X-Ray, Chest, PA & Lateral [facility] Work Phone: Start: 05-18-2014 End: 05-18-2014 Electrocardiogram, complete EKG (In office) [facility] Work Phone: Start: 05-18-2014 End: 05-18-2014 Follow Up Appt 3 months Follow Up Appt 3 months [facility] Work Phone: Start: 05-18-2014 End: 05-18-2014 Left Heart Cath Left Heart Cath [facility] Work Phone: Start: 05-18-2014 End: 05-18-2014 MMM MMM [facility] Work Phone: Start: 05-18-2014 End: 05-18-2014 Thyroid stimulating hormone (TSH) *TSH [facility] Work Phone: Start: 05-18-2014 End: 05-18-2014 Thyroxine (T4) *T4 (Total) [facility] Work Phone: Start: 11-19-2013 End: 11-19-[address] [employer] [address] [employer] [employer] [facility] Work Phone: Start: 11-19-2013 End: 11-19-2013 Follow Up Appt 6 months Follow Up Appt 6 months [facility] Work Phone: Start: 11-19-2013 End: 11-19-2013 Follow Up Appt Other Follow Up Appt Other [facility] Work Phone: Start: 11-19-2013 End: 11-19-[address] [employer] [employer] [facility] Work Phone: Start: 11-19-2013 End: 11-19-2013 Follow Up Appt 6 months Follow Up Appt 6 months [facility] Work Phone: Start: 11-19-2013 End: 11-19-2013 Follow Up Appt Other Follow Up Appt Other [facility] Work Phone: Start: 08-21-2013 End: 08-21-2013 Follow Up Appt 3 months Follow Up Appt 3 months [facility] Work Phone: Start: 08-21-2013 End: 08-21-2013 MMM MMM [facility] Work Phone: Start: 08-21-2013 End: 08-21-2013 Follow Up Appt 3 months Follow Up Appt 3 months [facility] Work Phone: Start: 08-21-2013 End: 08-21-2013 MMM MMM [facility] Work Phone: Start: 08-11-2013 End: 08-11-2013 Follow Up Appt Other Follow Up Appt Other [facility] Work Phone: Start: 08-11-2013 End: 08-11-2013 Follow Up Appt Other Follow Up Appt Other [facility] Work Phone: Start: 07-03-2013 End: 08-11-2013 Ecg routine ecg w/least 12 lds w/i&r EKG (In office) [facility] Work Phone: Start: 07-02-2013 End: 07-03-2013 *BMP *BMP [facility] Work Phone: Start: 07-02-2013 End: 07-03-2013 *CBC with Differential *CBC with Differential [facility] Work Phone: Start: 07-02-2013 End: 07-03-2013 BNP *Brain Natriuretic Peptide BNP [facility] Work Phone: Start: 07-02-2013 End: 07-02-2013 Cardioversion Cardioversion [facility] Work Phone: Start: 07-02-2013 End: 08-11-2013 Electrocardiogram, complete EKG (In office) [facility] Work Phone: Start: 07-02-2013 End: 08-11-2013 Follow Up Appt 2 months Follow Up Appt 2 months [facility] Work Phone: Start: 07-02-2013 End: 08-11-2013 MMM MMM [facility] Work Phone: Start: 07-02-2013 End: 07-03-2013 *BMP *BMP [facility] Work Phone: Start: 07-02-2013 End: 07-03-2013 *CBC with Differential *CBC with Differential [facility] Work Phone: Start: 07-02-2013 End: 07-03-2013 BNP *Brain Natriuretic Peptide BNP [facility] Work Phone: Start: 07-02-2013 End: 07-02-2013 Cardioversion Cardioversion [facility] Work Phone: Start: 07-02-2013 End: 07-02-2013 Electrocardiogram, complete EKG (In office) [facility] Work Phone: Start: 07-02-2013 End: 08-11-2013 Follow Up Appt 2 months Follow Up Appt 2 months [facility] Work Phone: Start: 07-02-2013 End: 08-11-2013 MMM MMM [facility] Work Phone: Start: 05-05-2013 End: 05-05-2013 Follow Up Appt 6 months Follow Up Appt 6 months [facility] Work Phone: Start: 05-05-2013 End: 05-05-2013 MMM MMM [facility] Work Phone: Start: 05-05-2013 End: 05-05-2013 Follow Up Appt 6 months Follow Up Appt 6 months [facility] Work Phone: Start: 05-05-2013 End: 05-05-2013 MMM MMM [facility] Work Phone: Start: 03-19-2013 End: 03-19-[address] [employer] [employer] [facility] Work Phone: Start: 03-19-2013 End: 03-19-2013 Follow Up Appt 4 months Follow Up Appt 4 months [facility] Work Phone: Start: 03-19-2013 End: 03-19-2013 Nuclear stress test -exercise Nuclear stress test -exercise [facility] Work Phone: Start: 03-19-2013 End: 03-19-[address] [employer] [employer] [facility] Work Phone: Start: 03-19-2013 End: 03-19-2013 Follow Up Appt 4 months Follow Up Appt 4 months [facility] Work Phone: Start: 03-19-2013 End: 03-19-2013 Nuclear stress test -exercise Nuclear stress test -exercise [facility] Work Phone: Start: 05-26-2012 End: 07-03-2013 Urine culture, bacteria *C&S, Routine Bacteria [facility] Work Phone: Start: 05-26-2012 End: 07-03-2013 Urine culture, bacteria *C&S, Routine Bacteria [facility] Work Phone: Summary Purpose Family [...] BE BASED ON THE PRIMARY CLINICAL RECORDS. [employer] [facility]. provides no warranty or guarantee of the accuracy or completeness of information in this document.
== END 2023-05-13 23:59 | disposition home or self-care (01) ==
LOC: US 11:56
PROVIDERS: PCP Family Medicine Geriatric Medicine; Referring Provider Family Medicine Geriatric Medicine; Visit Provider Family Medicine Geriatric Medicine
DX: J90 Pleural effusion, not elsewhere classified (principal)
CPT/HCPCS: 32555; 71046

== ENCOUNTER 2023-05-24 12:46 | Outpatient (CLI) | payer MEDICARE, OTHER, SELFPAY ==
[2023-05-24 13:42] VITALS: BP 131/66; PULSE 83; RESP 26; TEMP 35.9; O2SAT 96
[2023-05-24 13:45] VITALS: BP 116/57; PULSE 88; RESP 26; O2SAT 96
[2023-05-24] MEDS: Lidocaine 2% (20 ml mdv) 20 ML Vial INFILT (13:50)
[2023-05-24 13:55] VITALS: BP 124/57; PULSE 86; RESP 24; O2SAT 96
[2023-05-24 13:56] LABS: Anion Gap 4 (5-15); BUN 38 mg/dL (7-18); BUN/Creat Ratio 23.8 RATIO (10-20); Calcium,Total 8.9 mg/dL (8.5-10.1); Chloride 103 mmol/L (98-107); EST Glomerular Filtration Rate 33 mL/min (>60); Est Glom Filt Rate - Afr Amer 40 mL/min (>60); Glucose 221 mg/dL (74-106); Potassium 4.2 mmol/L (3.5-5.1); Sodium Level 140 mmol/L (136-145)
--- NOTE | 2023-05-24 13:57 | RAD_ITS ---
HISTORY: post thoracentesis. TECHNIQUE: XR Chest 2 Views. COMPARISON: 05/13/2023. FINDINGS: CARDIOMEDIASTINAL BORDERS: Cardiac silhouette again mildly enlarged. Mediastinal contour stable with mild calcification of the aortic knob. LUNGS: Unchanged linear left basilar opacity, likely atelectasis. PLEURA: Left pleural effusion without pneumothorax, similar to prior. OTHER: Mild degenerative changes of the osseous structures. Right axillary surgical clips again seen. RAD/Chest Insp/Exp 2 View IMPRESSION: Persistent left pleural effusion. Electronically Signed: Faustina Lee MD at 14:08 EST ,
--- NOTE | 2023-05-24 14:03 | PCM.OP.PRO ---
Procedure Report Date of Procedure: 05/24/23 Assessment & Plan Assessment/Plan (1) Pleural effusion, left: PLAN: PROCEDURE: Ultrasound Guided Thoracentesis ORDERING PROVIDER: Dr. Douglas INDICATION: Female, 83 years old. Recurrent left pleural effusion. PROVIDER: ANAMIKA Bravo PROCEDURE: The risks, benefits, and alternatives to the procedure were explained to the patient. The specific risks of bleeding, infection, and pneumothorax requiring chest tube insertion were discussed and accepted. Written informed consent was obtained. The patient was placed in the sitting, upright position. Ultrasonographic evaluation of the bilateral lower pleural spaces was carried out. An adequate pocket was identified in the left lower pleural space.The overlying skin was prepped and draped in sterile fashion. 2% lidocaine was administered subcutaneously for local anesthesia. Under ultrasound guidance, a 5-[place] thoracentesis needle/catheter system was advanced into the left posterior lower pleural fluid collection. 1080 ml of clear yellow colored fluid was drained. The catheter was removed, and a sterile dressing was applied. The patient tolerated the procedure well. A chest x-ray was ordered. IMPRESSION: Successful ultrasound-guided thoracentesis of recurrent left pleural effusion. Procedures Radiology Radiology US Procedures: [id number] Thoracentesis
[2023-05-24 14:05] VITALS: BP 116/65; PULSE 91; RESP 26; O2SAT 95
== END 2023-05-24 23:59 | disposition home or self-care (01) ==
LOC: US 12:47
PROVIDERS: Physician Assistant Medical; PCP Family Medicine Geriatric Medicine; Referring Provider Family Medicine Geriatric Medicine; Visit Provider Family Medicine Geriatric Medicine
DX: J90 Pleural effusion, not elsewhere classified (principal)
CPT/HCPCS: 32555; 36415; 71046; 80048

== ENCOUNTER → 2023-05-27 | Outpatient (CLI) | payer MEDICARE, OTHER, SELFPAY ==
--- NOTE | 2023-05-27 14:05 | ECHOD_ITS ---
Reason For Study: HARDEN Procedure This was a 2D Doppler, Color Flow transthoracic echocardiogram. Exam performed in department. Left Ventricle Normal LV size. Severe concentric left ventricular hypertrophy. The estimated ejection fraction is 60 %. Right Ventricle Normal RV size. Normal systolic function. Atria The left atrium is moderately enlarged. Normal right atrium. Mitral Valve Normal mitral valve. Tricuspid Valve Normal tricuspid valve. Mild (1+) tricuspid valve insufficiency. Pulmonary artery systolic pressure is 35 mmHg. Aortic Valve Normal aortic valve. Pulmonic Valve Normal pulmonic valve. Great Vessels Normal aortic root. The pulmonary artery is normal size. Normal inferior vena cava. Pericardium/Pleural Small pericardial effusion. MMode/2D Measurements & Calculations LVIDd: 4.0 cm IVSd: 1.8 cm Ao root diam: 3.5 cm LVIDs: 2.6 cm LVPWd: 1.7 cm RVDd: 3.4 cm FS: 33.4 % LAV(MOD-bp): 100.3 ml LVAd ap4: 22.5 cm2 SV(MOD-sp4): 34.4 ml LAV(MOD-bp) Indexed: 44.2 ml/m2 LVLd ap4: 7.6 cm LAV(MOD-sp2): 78.5 ml EDV(MOD-sp4): 58.7 ml LAV(MOD-sp4): 118.9 ml EDV(sp4-el): 57.0 ml LVAs ap4: 14.2 cm2 LVLs ap4: 7.1 cm ESV(MOD-sp4): 24.3 ml ESV(sp4-el): 24.0 ml EF(MOD-sp4): 58.6 % EF(sp4-el): 57.9 % SV(sp4-el): 33.0 ml LA A4 area: 31.6 cm2 LA dimension(2D): 5.3 cm RA A4 area: 20.3 cm2 Doppler Measurements & Calculations MV E max zoe: 110.0 cm/sec Ao V2 max: 113.5 cm/sec LV V1 max: 76.9 cm/sec Ao max P.2 mmHg LV V1 max P.4 mmHg PA V2 max: 74.7 cm/sec TR max zoe: 279.2 cm/sec TR max P.2 mmHg ECHO/Echo Complete Interpretation Summary Normal LV size. Severe concentric left ventricular hypertrophy. The estimated ejection fraction is 60 %. Mild (1+) tricuspid valve insufficiency. Ordering Physician: Mitali Hagen Referring Physician: Alexy Douglas Chi Performed By: Suzanne Lake RDCS
--- OUTSIDE RECORDS SUMMARY | 2023-05-27 19:50 | XMS RPT_ITS | CCD ---
Author Name Unknown Address [address] [place] [address] Organization [facility] Care Team Providers Care Gin Clerk Name Role Phone Aj Baptiste Unavailable Unavailable Vijaya Arshad Unavailable Unavailable Pat Pa Unavailable Unavailable Roof FLIGHT DIRECTOR, Chad Aden Unavailable Vijaya Arshad Unavailable Unavailable [...] (14 sources) amLODIPine drug allergy 6 constipation [facility] Work Phone: [phone] (14 sources) ascorbic acid / beta carotene / cuprous oxide / vitamin E / zinc oxide drug allergy 6 rash [facility] Work Phone: [phone] (14 sources) doxazosin drug allergy 6 lightheadedness [facility] Work Phone: [phone] (14 sources) fish oil drug allergy 6 rash [facility] Work Phone: [phone] (20 sources) Sulfonamides (Antibiotic) drug allergy 9 Unknown, had a reaction when she was 5 y/o [facility] Work Phone: [phone] (14 sources) OXYBUT drug allergy 6 rash [facility] Work Phone: Medications Completed/Discontinued Medications Medication Drug Class(es) Dates Sig (Normalized) Sig (Original) 200 actuat albuterol 0.09 mg/actuat metered dose inhaler (9 sources) beta2-Adrenergic Agonist Start: 11-16-2016 PROAIR HFA 108 (90 Base) MCG/ACT AERS Two inh every 4 hrs as needed ALBUTEROL SULFATE [id number] Pat Pa Problems Active Problems Problem Classification [...] 40.74 kg/m2 Rina Patel [facility] Work Phone: 01-16-2017 06:47-0400 Body Temperature 98.8 [degF] Rina Patel [facility] Work Phone: 01-16-2017 06:47-0400 BP Diastolic 70 mm[Hg] Rina Patel [facility] Work Phone: 01-16-2017 06:47-0400 BP Systolic 124 mm[Hg] Rina Patel [facility] Work Phone: 01-16-2017 06:47-0400 Height 172.09 cm Rina Patel [facility] Work Phone: 01-16-2017 06:47-0400 Pulse (Heart Rate) 57 /min Rina Patel [facility] Work Phone: 01-16-2017 06:47-0400 Respiratory Rate 18 /min Rina Patel [facility] Work Phone: 01-16-2017 06:47-0400 Weight 120.66 kg Rina Patel [facility] Work Phone: 12-17-2016 10:51-0400 Heart rate 47 [...] [facility] Work Phone: 12-07-2016 11:13-0400 Body Temperature 98.8 [degF] [facility] Work Phone: 12-07-2016 11:13-0400 BP Diastolic 69 mm[Hg] Pat Thierno [facility] Work Phone: 12-07-2016 11:13-0400 BP Systolic 173 mm[Hg] Pat Thierno [facility] Work Phone: 12-07-2016 11:13-0400 Height 172.09 cm [facility] Work Phone: 12-07-2016 11:13-0400 P[facility] ([facility] Rate) 51 [facility] Work Phone: 12-07-2016 11:13-0400 Respiratory Rate 18 /min [facility] Work Phone: 12-07-2016 11:13-0400 Weight 126.55 kg [...] Heart rate 466 ms Mariam Amaral RN [facility] Work Phone: Procedures Date Procedure Procedure Detail Performing Clinician Start: 12-31-2016 End: 01-03-2017 *BMP Chad Woodard FLIGHT DIRECTOR Work Phone: Start: 12-17-2016 End: 12-17-2016 Ecg routine ecg w/least 12 lds w/i&r Chad Woodard FLIGHT DIRECTOR Work Phone: Start: 12-07-2016 End: 12-14-2016 *MISC - Miscellaneous Lab Test #1 Bessy Galan CNP Work Phone: Start: 12-07-2016 End: 12-14-2016 DMB Bessy Galan ENGINEER OF SYSTEM DEVELOPMENT Work Phone: Start: 12-07-2016 End: 12-14-2016 Follow Up Appt 2 months Bessy vallejo ENGINEER OF SYSTEM DEVELOPMENT Work Phone: Start: 12-07-2016 End: 12-14-2016 Pulmonary Function Test - complete Bessy Galan ENGINEER OF SYSTEM DEVELOPMENT Work Phone: Start: 12-07-2016 End: 12-14-2016 Pulmonary stress test/simple Bessy Galan ENGINEER OF SYSTEM DEVELOPMENT Work Phone: Start: 12-07-2016 End: 12-07-2016 Dietary management education, guidance, and counseling Pat Pa Start: 12-07-2016 End: 12-14-2016 *MISC - Miscellaneous Lab Test #1 Bessy Galan ENGINEER OF SYSTEM DEVELOPMENT Work Phone: Start: 12-07-2016 End: 12-14-2016 DMB Bessy Galan ENGINEER OF SYSTEM DEVELOPMENT Work Phone: Start: 12-07-2016 End: 12-14-2016 Follow Up Appt 2 months Bessy Mahoney Marlene genevieve ENGINEER OF SYSTEM DEVELOPMENT Work Phone: Start: 12-07-2016 End: 12-14-2016 Pulmonary Function Test - complete Bessy Galan ENGINEER OF SYSTEM DEVELOPMENT Work Phone: Start: 12-07-2016 End: 12-14-2016 Pulmonary stress test/simple Bessy Galan ENGINEER OF SYSTEM DEVELOPMENT Work Phone: Start: 10-18-2016 End: 10-18-2016 Follow [...] PA-C Work Phone: Start: 03-30-2015 End: 03-30-2015 WIND PROJECTS SUPERVISOR Mitali Hagen PA-C Work Phone: Start: 03-30-2015 End: 03-30-2015 Follow Up Appt 6 months Mitali Hagen PA-C Work Phone: Start: 03-30-2015 End: 03-30-2015 Follow Up BP Check Mitali Hagen PA-C Work Phone: Start: 03-30-2015 End: 04-03-2016 Ambulatory BP Monitor 24 HR Mitali Hagen PA-C Work Phone: Start: 03-30-2015 End: 03-30-2015 WIND PROJECTS SUPERVISOR Mitali Hagen PA-C Work Phone: Start: [...] Roosevelt Tesfaye MD Start: 08-16-2014 End: 08-16-2014 WIND PROJECTS SUPERVISOR Mitali Hagen PA-C Work Phone: Start: 08-16-2014 End: 08-17-2014 Documentation of current medications Mitali Hagen PA-C Work Phone: Start: 08-16-2014 End: 08-16-2014 Follow Up Appt 6 weeks Mitali Hagen PA-C Work Phone: Start: 08-16-2014 End: 08-27-2014 Pulmonary Function Test - complete Mitali Hagen PA-C Work Phone: Start: 08-16-2014 End: 08-16-2014 WIND PROJECTS SUPERVISOR Mitali Hagen PA-C Work Phone: Start: [...] Ecg routine ecg w/least 12 lds w/i&r Roosevlet Tesfaye MD Start: 05-18-2014 End: 05-18-2014 Follow [...] MMWei Tesfaye MD Start: 03-19-2013 End: 03-19-2013 WIND PROJECTS SUPERVISOR KELLEY SolitarioC Work Phone: Start: 03-19-2013 End: 03-19-2013 Follow Up Appt 4 months Mitali Hagen PA-C Work Phone: Start: 03-19-2013 End: 08-11-2013 Nuclear stress test -exercise Mitali Hagen PA-C Work Phone: Start: 03-19-2013 End: 03-19-2013 WIND PROJECTS SUPERVISOR Mitali Hagen PA-C Work Phone: Start: [...] Phone: Start: 05-02-2017 End: 05-02-2017 Appointment Appointment [facility] Work Phone: Start: 01-30-2017 End: 01-30-2017 Appointment Appointment [facility] Work Phone: Start: 01-16-2017 End: 01-16-2017 [facility] Work Phone: Start: 01-16-2017 End: 01-16-2017 Follow Up Appt 6 months Follow Up Appt 6 months [facility] Work Phone: Start: 01-16-2017 End: 01-16-2017 Appointment Appointment [facility] Work Phone: Start: 12-31-2016 End: 01-03-2017 *BMP *BMP [facility] Work Phone: Start: 12-31-2016 End: 12-17-2016 *BMP *BMP [facility] Work Phone: Start: 12-17-2016 End: 12-17-2016 Appointment Appointment [facility] Work Phone: Start: 12-07-2016 End: 12-07-2016 Appointment Appointment [facility] Work Phone: Start: 12-07-2016 End: 12-14-2016 *MISC - Miscellaneous Lab Test #1 *MISC - Miscellaneous Lab Test #1 [facility] Work Phone: Start: 12-07-2016 End: 12-14-2016 [facility] Work Phone: Start: 12-07-2016 End: 12-14-2016 Follow Up Appt 2 months Follow Up Appt 2 months [facility] Work Phone: Start: 12-07-2016 End: 12-14-2016 Pulmonary [...] Start: 12-07-2016 End: 12-14-2016 [facility] Work Phone: Start: 12-07-2016 End: 12-14-2016 Follow Up Appt 2 months Follow Up Appt 2 months [facility] Work Phone: Start: 12-07-2016 End: 12-14-2016 Pulmonary Function Test - complete Pulmonary Function Test - complete [facility] Work Phone: Start: 12-07-2016 End: 12-14-2016 Pulmonary stress test/simple Pulmonary stress testing; simple (eg, 6-minute walk) [facility] Work Phone: Start: 10-18-2016 End: 10-18-2016 Appointment Appointment [facility] Work Phone: Start: 10-18-2016 End: 10-18-2016 Follow Up Appt 6 months Follow Up Appt 6 months [facility] Work Phone: Start: 10-18-2016 End: 10-18-2016 MMM MMM [facility] Work Phone: Start: 10-18-2016 End: 10-18-2016 Follow Up Appt 6 months Follow Up Appt 6 months [facility] Work Phone: Start: 10-18-2016 End: 10-18-2016 MMM MMM [facility] Work Phone: Start: 04-06-2016 End: 04-06-2016 WIND PROJECTS SUPERVISOR WIND PROJECTS SUPERVISOR [facility] Work Phone: Start: 04-06-2016 End: 04-06-2016 Follow Up Appt 6 months Follow Up Appt 6 months [facility] Work Phone: Start: 04-06-2016 End: 04-06-2016 WIND PROJECTS SUPERVISOR WIND PROJECTS SUPERVISOR [facility] Work Phone: Start: 04-06-2016 End: 04-06-2016 Follow Up Appt 6 months Follow Up Appt 6 months [facility] Work Phone: Start: 10-04-2015 End: 10-04-2015 Ecg routine ecg w/least 12 lds w/i&r EKG (In office) [facility] Work Phone: Start: 10-04-2015 End: 10-04-2015 Follow Up Appt 6 months Follow Up Appt 6 months [facility] Work Phone: Start: 10-04-2015 End: 10-04-2015 MMM MMM [facility] Work Phone: Start: 10-04-2015 End: 10-04-2015 Electrocardiogram, complete EKG (In office) [facility] Work Phone: Start: 10-04-2015 End: 10-04-2015 Follow Up Appt 6 months Follow Up Appt 6 months [facility] Work Phone: Start: 10-04-2015 End: 10-04-2015 MMM MMM [facility] Work Phone: Start: 05-11-2015 End: 05-16-2015 *BMP *BMP [facility] Work Phone: Start: 05-11-2015 End: 05-16-2015 *BMP *BMP [facility] Work Phone: Start: 03-30-2015 End: 03-31-2015 Ambulatory BP Monitor 24 HR Ambulatory BP Monitor 24 HR [facility] Work Phone: Start: 03-30-2015 End: 03-30-2015 WIND PROJECTS SUPERVISOR WIND PROJECTS SUPERVISOR [facility] Work Phone: Start: 03-30-2015 End: 03-30-2015 Follow Up Appt 6 months Follow Up Appt 6 months [facility] Work Phone: Start: 03-30-2015 End: 03-30-2015 Follow Up BP Check Follow Up BP Check [facility] Work Phone: Start: 03-30-2015 End: 03-31-2015 Ambulatory BP Monitor 24 HR Ambulatory BP Monitor 24 HR [facility] Work Phone: Start: 03-30-2015 End: 03-30-2015 WIND PROJECTS SUPERVISOR WIND PROJECTS SUPERVISOR [facility] Work Phone: Start: 03-30-2015 End: 03-30-2015 Follow Up Appt 6 months Follow Up Appt 6 months [facility] Work Phone: Start: 03-30-2015 End: 03-30-2015 Follow Up BP Check Follow Up BP Check [facility] Work Phone: Start: 02-09-2015 End: 02-09-2015 Fungus culture *CUF - Culture, Fungus (Only) 0714 [facility] Work Phone: Start: 02-09-2015 End: 02-09-2015 Fungus culture *CUF - Culture, Fungus (Only) [id number] [facility] Work Phone: Start: 09-28-2014 End: 09-30-2014 *Hepatic Function Panel *Hepatic Function Panel [facility] Work Phone: Start: 09-28-2014 End: 09-28-2014 Follow Up Appt 6 months Follow Up Appt 6 months [facility] Work Phone: Start: 09-28-2014 End: 09-28-2014 MMM MMM [facility] Work Phone: Start: 09-28-2014 End: 09-30-2014 Thyroid stimulating hormone (TSH) *TSH [facility] Work Phone: Start: 09-28-2014 End: 09-30-2014 Thyroxine (T4) *T4 (Total) [facility] Work Phone: Start: 09-28-2014 End: 09-30-2014 *Hepatic Function Panel *Hepatic Function Panel [facility] Work Phone: Start: 09-28-2014 End: 09-28-2014 Follow Up Appt 6 months Follow Up Appt 6 months [facility] Work Phone: Start: 09-28-2014 End: 09-28-2014 MMM MMM [facility] Work Phone: Start: 09-28-2014 End: 09-30-2014 Thyroid stimulating hormone (TSH) *TSH [facility] Work Phone: Start: 09-28-2014 End: 09-30-2014 Thyroxine (T4) *T4 (Total) [facility] Work Phone: Start: 08-16-2014 End: 08-16-2014 WIND PROJECTS SUPERVISOR WIND PROJECTS SUPERVISOR [facility] Work Phone: Start: 08-16-2014 End: 08-16-2014 Follow Up Appt 6 weeks Follow Up Appt 6 weeks [facility] Work Phone: Start: 08-16-2014 End: 08-16-2014 Pulmonary Function Test - complete Pulmonary Function Test - complete [facility] Work Phone: Start: 08-16-2014 End: 08-16-2014 WIND PROJECTS SUPERVISOR WIND PROJECTS SUPERVISOR [facility] Work Phone: Start: 08-16-2014 End: 08-16-2014 Follow Up Appt 6 weeks Follow Up Appt 6 weeks [facility] Work Phone: Start: 08-16-2014 End: 08-16-2014 Pulmonary Function Test - complete Pulmonary Function Test - complete [facility] Work Phone: Start: 07-23-2014 End: 07-23-2014 Radiologic examination pelvis 1/2 views X-Ray, Pelvis [facility] Work Phone: Start: 07-23-2014 End: 07-23-2014 X-ray exam of hip X-Ray, Hip Unilateral [facility] Work Phone: Start: 07-23-2014 End: 07-23-2014 X-ray exam of hip X-Ray, Hip Unilateral [facility] Work Phone: Start: 07-23-2014 End: 07-23-2014 X-ray exam of pelvis X-Ray, Pelvis [facility] Work Phone: Start: 05-18-2014 End: 05-18-2014 *BMP *BMP [facility] Work Phone: Start: 05-18-2014 End: 05-18-2014 *Hepatic Function Panel *Hepatic Function Panel [facility] Work Phone: Start: 05-18-2014 [...] 3 months Follow Up Appt 3 months [facility] Work Phone: Start: 05-18-2014 End: 05-18-2014 Left Heart Cath Left Heart Cath [facility] Work Phone: Start: 05-18-2014 End: 05-18-2014 MMM MMM [facility] Work Phone: Start: 05-18-2014 End: 05-18-2014 Thyroid stimulating hormone (TSH) *TSH [facility] Work Phone: Start: 05-18-2014 End: 05-18-2014 Thyroxine (T4) *T4 (Total) [facility] Work Phone: Start: 05-18-2014 End: 05-18-2014 *BMP *BMP [facility] Work Phone: Start: 05-18-2014 End: [...] End: 05-18-2014 Electrocardiogram, complete EKG (In office) [facility] Work Phone: Start: 05-18-2014 End: 05-18-2014 Follow Up Appt 3 months Follow Up Appt 3 months [facility] Work Phone: Start: 05-18-2014 End: 05-18-2014 Left Heart Cath Left Heart Cath [facility] Work Phone: Start: 05-18-2014 End: 05-18-2014 MMM MMM [facility] Work Phone: Start: 05-18-2014 End: 05-18-2014 Thyroid stimulating hormone (TSH) *TSH [facility] Work Phone: Start: 05-18-2014 End: 05-18-2014 Thyroxine (T4) *T4 (Total) [facility] Work Phone: Start: 11-19-2013 End: 11-19-2013 WIND PROJECTS SUPERVISOR WIND PROJECTS SUPERVISOR [facility] Work Phone: Start: 11-19-2013 End: 11-19-2013 Follow Up Appt 6 months Follow Up Appt 6 months [facility] Work Phone: Start: 11-19-2013 End: 11-19-2013 Follow Up Appt Other Follow Up Appt Other [facility] Work Phone: Start: 11-19-2013 End: 11-19-2013 WIND PROJECTS SUPERVISOR WIND PROJECTS SUPERVISOR [facility] Work Phone: Start: 11-19-2013 End: 11-19-2013 Follow Up Appt 6 months Follow Up Appt 6 months [facility] Work Phone: Start: 11-19-2013 End: 11-19-2013 Follow Up Appt Other Follow Up Appt Other [facility] Work Phone: Start: 08-21-2013 [...] Up Appt Other Follow Up Appt Other [facility] Work Phone: Start: 08-11-2013 End: 08-11-2013 Follow Up Appt Other Follow Up Appt Other [facility] Work Phone: Start: 07-03-2013 End: 08-11-2013 Ecg routine ecg w/least 12 lds w/i&r EKG (In office) [facility] Work Phone: Start: 07-02-2013 End: 07-03-2013 *BMP *BMP [facility] Work Phone: Start: 07-02-2013 End: 07-03-2013 *CBC with Differential *CBC with Differential [facility] Work Phone: Start: 07-02-2013 End: 07-03-2013 BNP *Brain Natriuretic Peptide BNP [facility] Work Phone: Start: 07-02-2013 End: 07-02-2013 Cardioversion Cardioversion [facility] Work Phone: Start: 07-02-2013 End: 08-11-2013 Electrocardiogram, complete EKG (In office) [facility] Work Phone: Start: 07-02-2013 End: [...] 2 months Follow Up Appt 2 months [facility] Work Phone: Start: 07-02-2013 End: 08-11-2013 MMM MMM [facility] Work Phone: Start: 05-05-2013 End: 05-05-2013 Follow Up Appt 6 months Follow Up Appt 6 months [facility] Work Phone: Start: 05-05-2013 End: 05-05-2013 MMM MMM [facility] Work Phone: Start: 05-05-2013 End: 05-05-2013 Follow Up Appt 6 months Follow Up Appt 6 months [facility] Work Phone: Start: 05-05-2013 End: 05-05-2013 MMM MMM [facility] Work Phone: Start: 03-19-2013 End: 03-19-2013 WIND PROJECTS SUPERVISOR WIND PROJECTS SUPERVISOR [facility] Work Phone: Start: 03-19-2013 End: 03-19-2013 Follow Up Appt 4 months Follow Up Appt 4 months [facility] Work Phone: Start: 03-19-2013 End: 03-19-2013 Nuclear stress test -exercise Nuclear stress test -exercise [facility] Work Phone: Start: 03-19-2013 End: 03-19-2013 WIND PROJECTS SUPERVISOR WIND PROJECTS SUPERVISOR [facility] Work Phone: Start: 03-19-2013 End: 03-19-2013 Follow Up Appt 4 months Follow Up Appt 4 months [facility] Work Phone: Start: 03-19-2013 End: 03-19-2013 Nuclear stress test -exercise Nuclear stress test -exercise [facility] Work Phone: Start: 05-26-2012 End: 07-03-2013 Urine culture, bacteria *C&S, Routine Bacteria [facility] Work Phone: Start: 05-26-2012 End: 07-03-2013 Urine culture, bacteria *C&S, Routine Bacteria [facility] Work Phone: Summary Purpose Family [...] BE BASED ON THE PRIMARY CLINICAL RECORDS. [facility]. provides no warranty or guarantee of the accuracy or completeness of information in this document.
== END | disposition home or self-care (01) ==
LOC: CVS 14:03
PROVIDERS: PCP Family Medicine Geriatric Medicine; Referring Provider Physician Assistant Medical; Visit Provider Physician Assistant Medical
DX: R06.09 Other forms of dyspnea (principal)
CPT/HCPCS: 93306

== ENCOUNTER → 2023-06-06 | Outpatient (CLI) | payer MEDICARE, OTHER, SELFPAY ==
[2023-06-06 08:30] VITALS: BP 130/67; PULSE 98; RESP 22; O2SAT 94
[2023-06-06] MEDS: Lidocaine 2% (20 ml mdv) 20 ML Vial INFILT (08:35)
[2023-06-06 08:43] VITALS: BP 124/82; PULSE 70; RESP 20; O2SAT 95
--- NOTE | 2023-06-06 08:45 | RAD_ITS ---
INDICATION: thoracentesis EXAMINATION/TECHNIQUE: X-RAY - XR Chest 2 Views COMPARISON: May 24, 2023 FINDINGS: LINES/DEVICES: None. LUNGS: There is a left pleural effusion that has decreased in size since the prior examination. No pneumothorax. MEDIASTINUM AND CARDIOVASCULAR STRUCTURES: Cardiac silhouette not enlarged. Central airways and mediastinal contour are unremarkable. BONES AND SOFT TISSUES: Unremarkable. RAD/Chest Insp/Exp 2 View IMPRESSION: Interval decrease in size of left pleural effusion consistent with recent thoracentesis. Electronically Signed: Ethel Larry MD at 9:09 EDT ,
--- NOTE | 2023-06-06 10:03 | PCM.OP.PRO ---
Procedure Report Date of Procedure: 06/06/23 Assessment & Plan Assessment/Plan (1) Pleural effusion, left: PLAN: PROCEDURE: Ultrasound Guided Thoracentesis ORDERING PROVIDER: Dr. Douglas INDICATION: Female, 83 years old. Recurrent left pleural effusion. PROVIDER: ANAMIKA Bravo PROCEDURE: The risks, benefits, and alternatives to the procedure were explained to the patient. The specific risks of bleeding, infection, and pneumothorax requiring chest tube insertion were discussed and accepted. Written informed consent was obtained. The patient was placed in the sitting, upright position. Ultrasonographic evaluation of the bilateral lower pleural spaces was carried out. An adequate pocket was identified in the left lower pleural space.The overlying skin was prepped and draped in sterile fashion. 2% lidocaine was administered subcutaneously for local anesthesia. Under ultrasound guidance, a 5-[place] thoracentesis needle/catheter system was advanced into the left lower posterior lower pleural fluid collection. 1300 ml of clear yellow colored fluid was drained. The catheter was removed, and a sterile dressing was applied. The patient tolerated the procedure well. A chest x-ray was ordered. IMPRESSION: Successful ultrasound-guided thoracentesis of recurrent left pleural effusion. Procedures Radiology Radiology US Procedures: [id number] Thoracentesis
== END | disposition home or self-care (01) ==
LOC: US 08:11
PROVIDERS: PCP Family Medicine Geriatric Medicine; Referring Provider Family Medicine Geriatric Medicine; Visit Provider Family Medicine Geriatric Medicine
DX: J90 Pleural effusion, not elsewhere classified (principal)
CPT/HCPCS: 32555; 71046

== ENCOUNTER → 2023-06-17 | Outpatient (CLI) | payer MEDICARE, OTHER, SELFPAY ==
[2023-06-17 08:13] VITALS: BP 103/50; PULSE 89; RESP 18; TEMP 36.2; O2SAT 96
--- NOTE | 2023-06-17 08:15 | RAD_ITS ---
INDICATION: immediately post thoracentesis EXAMINATION/TECHNIQUE: X-RAY - XR Chest 2 Views COMPARISON: June 06, 2023 FINDINGS: LINES/DEVICES: None. LUNGS: There is persistent elevation of the left hemidiaphragm. There is improved aeration of the left lung base. There is persistent obscuration of the left costophrenic angle. No pneumothorax. MEDIASTINUM AND CARDIOVASCULAR STRUCTURES: Cardiac silhouette not enlarged. Central airways and mediastinal contour are unremarkable. BONES AND SOFT TISSUES: Unremarkable. RAD/Chest Insp/Exp 2 View IMPRESSION: Improved aeration of the left lung base consistent with recent thoracentesis. No apparent pneumothorax. Electronically Signed: Ethel Larry MD at 8:40 EDT ,
[2023-06-17] MEDS: Lidocaine 2% (20 ml mdv) 20 ML Vial INFILT (08:20)
[2023-06-17 08:23] VITALS: BP 113/53; PULSE 75; RESP 18; O2SAT 18
[2023-06-17 08:27] VITALS: BP 100/55; PULSE 75; RESP 20; O2SAT 96
[2023-06-17 08:33] VITALS: BP 108/57; PULSE 86; RESP 20; TEMP 36.6
--- NOTE | 2023-06-17 08:39 | PRO.PCM_ITS ---
Procedure Report Date of Procedure: 06/17/23 Assessment & Plan Assessment/Plan (1) Pleural effusion, left: PLAN: PROCEDURE: Ultrasound Guided Thoracentesis ORDERING PROVIDER: Dr. Douglas INDICATION: Female, 83 years old. Recurrent left pleural effusion. PROVIDER: ANAMIKA Bravo PROCEDURE: The risks, benefits, and alternatives to the procedure were explained to the patient. The specific risks of bleeding, infection, and pneumothorax requiring chest tube insertion were discussed and accepted. Written informed consent was obtained. The patient was placed in the sitting, upright position. Ultrasonographic evaluation of the bilateral lower pleural spaces was carried out. An adequate pocket was identified in the left lower pleural space.The overlying skin was prepped and draped in sterile fashion. 2% lidocaine was administered subcutaneously for local anesthesia. Under ultrasound guidance, a 5-[place] thoracentesis needle/catheter system was advanced into the left posterior lower pleural fluid collection. 1330 ml of clear yellow colored fluid was drained. The catheter was removed, and a sterile dressing was applied. The patient tolerated the procedure well. A chest x-ray was ordered. IMPRESSION: Successful ultrasound-guided thoracentesis of the left recurrent pleural effusion. Procedures Radiology Radiology US Procedures: [id number] Thoracentesis
[2023-06-17 12:47] VITALS: PULSE 101; PULSE 103; PULSE 80; PULSE 84; PULSE 87; PULSE 92; PULSE 94; O2SAT 90; O2SAT 91; O2SAT 92; O2SAT 93; O2SAT 94
--- NOTE | 2023-06-17 12:50 | CPS ---
PATIENT ARRIVED FOR TESTING ON RA VIA W/C. SHE PUSHED THE W/C FOR STABILITY DURING WALK TEST. SHE HAD A THORACENTESIS 3 HOURS PRIOR TO TESTING. LEG FATIGUE AND INCREASED WOB WERE FACTORS CONTRIBUTING TO FREQUENT REST BREAKS DURING TESTING. PATIENT WALKED 317FT DURING TESTING. ENTIRE WALK TEST DONE WITH PATIENT ON ROOM AIR.
--- NOTE | 2023-06-19 10:13 | WT_ITS ---
PSN 6 Minute Walk Test 6 Minute Walk Test 6 Minute Walk Test: 6 Minute Walk Test PSN:6-Minute Walk Test Start: 06/17/23 12:47 Freq: Status: Active Protocol: [id number] Document 06/17/23 12:47 [facility] (Rec: 06/17/23 12:53 [facility] [id number]) 6 Minute Walk Test Date Performed 06/17/23 Time Performed 12:30 Height 5 ft 8 in Weight: 255 lb Weight in Pounds 255.[address]: Bessy Galan ANALOG DEVICE DESIGNER Assistive device used: Walker Pre-test Oxygen Delivery Method Room Air Pulse Ox 91 Pulse Rate (60-100) 94 Dyspnea Maci Scale (0-10) 1 1st minute Oxygen Delivery Method Room Air Pulse Ox 92 Pulse Rate (60-100) 80 Dyspnea Maci Scale (0-10) 3 Number of Rests Taken 1 Reported Symptoms Increased Work of Breathing 2nd minute Oxygen Delivery Method Room Air Pulse Ox 92 Pulse Rate (60-100) 84 Dyspnea Maci Scale (0-10) 3 Number of Rests Taken 0 Reported Symptoms Increased Work of Breathing 3rd minute Oxygen Delivery Method Room Air Pulse Ox 94 Pulse Rate (60-100) 87 Dyspnea Maci Scale (0-10) 4 Number of Rests Taken 1 Reported Symptoms Increased Work of Breathing 4th minute Oxygen Delivery Method Room Air Pulse Ox 90 Pulse Rate (60-100) 94 Dyspnea Maci Scale (0-10) 3 Number of Rests Taken 1 Reported Symptoms Increased Work of Breathing 5th minute Oxygen Delivery Method Room Air Pulse Ox 91 Pulse Rate (60-100) 101 H Dyspnea Maci Scale (0-10) 3 Number of Rests Taken 1 Reported Symptoms Increased Work of Breathing 6th minute Oxygen Delivery Method Room Air Pulse Ox 90 Pulse Rate (60-100) 103 H Dyspnea Maci Scale (0-10) 3 Number of Rests Taken 0 Reported Symptoms Increased Work of Breathing Post-test Oxygen Delivery Method Room Air Pulse Ox 93 Pulse Rate (60-100) 92 Dyspnea Maci Scale (0-10) 91 Full Laps Walked 5 Partial Lap, Number of Tiles Walked 22 Total Distance Walked (ft) 317 06/17/23 12:50 Cardiopulmonary Services by YamilethKim PATIENT ARRIVED FOR TESTING ON RA VIA W/C. SHE PUSHED THE W/C FOR STABILITY DURING WALK TEST. SHE HAD A THORACENTESIS 3 HOURS PRIOR TO TESTING. LEG FATIGUE AND INCREASED WOB WERE FACTORS CONTRIBUTING TO FREQUENT REST BREAKS DURING TESTI NG. PATIENT WALKED 317FT DURING TESTING. ENTIRE WALK TEST DONE WITH PATIENT ON ROOM AIR. Initialized on 06/17/23 12:50 - END OF NOTE Interpretation Interpretation: The patient ambulated 317 feet over the course of 6 minutes beginning on room air with the use of a wheelchair or walker. Pretesting oxygen saturation was noted to be 91% on room air. With ambulation, the becka oxygen saturation was 90%. There was no significant exertional oxygen desaturation. However, there was significantly impaired walk distance. Recommendations Recommendations: There is no indication for the use of supplemental oxygen at this time.
== END | disposition home or self-care (01) ==
LOC: US 08:00
PROVIDERS: PCP Family Medicine Geriatric Medicine; Referring Provider Nurse Practitioner Acute Care; Visit Provider Nurse Practitioner Acute Care
DX: J90 Pleural effusion, not elsewhere classified (principal); J44.9 Chronic obstructive pulmonary disease, unspecified
CPT/HCPCS: 32555; 71046; 94618

== ENCOUNTER → 2023-06-24 | Outpatient (CLI) | payer MEDICARE, OTHER, SELFPAY ==
[2023-06-24 12:18] LABS: Albumin, Serum 2.8 g/dL (3.2-5.0); BUN 37 mg/dL (7-18); BUN/Creat Ratio 18.2 RATIO (10-20); Calcium,Total 8.8 mg/dL (8.5-10.1); Chloride 101 mmol/L (98-107); Creatinine, Serum 2.03 mg/dL (0.55-1.02); EST Glomerular Filtration Rate 25 mL/min (>60); Est Glom Filt Rate - Afr Amer 30 mL/min (>60); Glucose 219 mg/dL (74-106); Phosphorus 3.6 mg/dL (2.5-4.9); Potassium 3.8 mmol/L (3.5-5.1); Sodium Level 139 mmol/L (136-145)
== END | disposition home or self-care (01) ==
LOC: LAB 11:23
PROVIDERS: PCP Family Medicine Geriatric Medicine; Referring Provider Internal Medicine Nephrology; Visit Provider Internal Medicine Nephrology
DX: N18.32 Chronic kidney disease, stage 3b (principal); E11.22 Type 2 diabetes mellitus with diabetic chronic kidney disease
CPT/HCPCS: 36415; 80069; 82570; 84156

== ENCOUNTER → 2023-06-25 | Outpatient (CLI) | payer MEDICARE, OTHER, SELFPAY | END | disposition home or self-care (01) | LOC: LAB.FUTURE 06:49 | PROVIDERS: PCP Family Medicine Geriatric Medicine; Visit Provider Internal Medicine Nephrology | DX: E11.22 Type 2 diabetes mellitus with diabetic chronic kidney disease (principal); N18.32 Chronic kidney disease, stage 3b ==

== ENCOUNTER → 2023-06-27 | Outpatient (CLI) | payer MEDICARE, OTHER, SELFPAY ==
--- NOTE | 2023-06-27 07:22 | RAD_ITS ---
STUDY: X-RAY CHEST REASON FOR EXAM: Female, 83 years old. Immediately post thoracentesis TECHNIQUE: AP and inspiration and expiration views. COMPARISON: Comparison is made with prior study dated June 17, 2023. FINDINGS: Surgical clips are seen in the right axilla. The patient is status post left thoracentesis. There is no evidence of pneumothorax. Residual left pleural-parenchymal changes persist. RAD/Chest Insp/Exp 2 View IMPRESSION: Status post left thoracentesis. No evidence of pneumothorax. Persistent pleural-parenchymal changes at the left lung base. Electronically Signed: Huey Gomez MD at 8:52 EDT ,
[2023-06-27 08:16] VITALS: BP 112/39; PULSE 68; RESP 18; O2SAT 96
[2023-06-27] MEDS: Lidocaine 2% (20 ml mdv) 20 ML Vial INFILT (08:27)
[2023-06-27 08:31] VITALS: BP 101/62; PULSE 62; RESP 18; O2SAT 97
[2023-06-27 08:36] VITALS: BP 111/55; PULSE 62; RESP 18; O2SAT 97
--- NOTE | 2023-06-27 10:01 | PCM.OP.PRO ---
Procedure Report PROCEDURE: Ultrasound Guided Thoracentesis ORDERING PROVIDER: Dr. Douglas INDICATION: Female, 83 years old. Recurrent left pleural effusion. PROVIDER: ANAMIKA Bravo PROCEDURE: The risks, benefits, and alternatives to the procedure were explained to the patient. The specific risks of bleeding, infection, and pneumothorax requiring chest tube insertion were discussed and accepted. Written informed consent was obtained. The patient was placed in the sitting, upright position. Ultrasonographic evaluation of the bilateral lower pleural spaces was carried out. An adequate pocket was identified in the left lower pleural space.The overlying skin was prepped and draped in sterile fashion. 2% lidocaine was administered subcutaneously for local anesthesia. Under ultrasound guidance, a 5-Slovenian thoracentesis needle/catheter system was advanced into the left posterior lower pleural fluid collection. 1110 ml of clear yellow colored fluid was drained. The catheter was removed, and a sterile dressing was applied. The patient tolerated the procedure well. A chest x-ray was ordered. IMPRESSION: Successful ultrasound-guided thoracentesis of left pleural effusion. Procedures Radiology Radiology US Procedures: [id number] Thoracentesis
== END | disposition home or self-care (01) ==
LOC: US 07:58
PROVIDERS: PCP Family Medicine Geriatric Medicine; Referring Provider Family Medicine Geriatric Medicine; Visit Provider Family Medicine Geriatric Medicine
DX: J90 Pleural effusion, not elsewhere classified (principal)
CPT/HCPCS: 32555; 71046

== ENCOUNTER → 2023-07-05 | Outpatient (CLI) | payer MEDICARE, OTHER, SELFPAY ==
--- NOTE | 2023-07-05 10:37 | US_ITS ---
PROCEDURE: ULTRASOUND GUIDED THORACENTESIS. DATE: July 05, 2023.. INDICATION: Female, 83 years old. Left pleural effusion. PHYSICIAN: Huey Gomez M.D. PROCEDURE: The risks, benefits, and alternatives to the procedure were explained to the patient. The specific risks of bleeding, infection, and pneumothorax requiring chest tube insertion were discussed and accepted. Written informed consent was obtained. Ultrasonographic evaluation of the left lower pleural space was carried out. An adequate pocket was identified. The patient was placed in the sitting, upright position. The overlying skin was prepped and draped in sterile fashion. 1% lidocaine was administered subcutaneously for local anesthesia. Under ultrasound guidance, a 5 [place] thoracentesis needle/catheter system was advanced into the left posterior lower pleural fluid collection. Approximately 1370 mL of leigh-colored fluid was drained. The catheter was removed, and a sterile dressing was applied. The patient tolerated the procedure well. A chest x-ray was ordered. US/Thoracentesis W US IMPRESSION: Ultrasound-guided left thoracentesis. Electronically Signed: Huey Gomez MD at 12:49 EDT ,
[2023-07-05 10:57] VITALS: BP 141/80; PULSE 113; RESP 32; O2SAT 97
[2023-07-05] MEDS: Lidocaine 2% (20 ml mdv) 20 ML Vial INFILT (11:03)
[2023-07-05 11:08] VITALS: BP 133/74; PULSE 110; RESP 30; O2SAT 94
[2023-07-05 11:09] VITALS: BP 135/66; PULSE 112; RESP 30; O2SAT 95
--- NOTE | 2023-07-05 11:10 | RAD_ITS ---
STUDY: X-RAY CHEST REASON FOR EXAM: Female, 83 years old. Immediately post thoracentesis TECHNIQUE: AP inspiration and expiration views. COMPARISON: Comparison is made with prior study dated June 27, 2023. FINDINGS: The patient is status post left thoracentesis. No evidence of pneumothorax. Persistent pleural-parenchymal changes seen at the left lung base. RAD/Chest Insp/Exp 2 View IMPRESSION: No evidence of pneumothorax following left thoracentesis. Residual pleural parenchymal changes at the left lung base. Electronically Signed: Huey Gomez MD at 12:07 EDT ,
[2023-07-05 11:14] VITALS: BP 154/64; PULSE 97; RESP 30; O2SAT 94
[2023-07-05 11:15] VITALS: BP 134/57; PULSE 95; RESP 30; O2SAT 94
== END | disposition home or self-care (01) ==
LOC: US 10:33
PROVIDERS: PCP Family Medicine Geriatric Medicine; Referring Provider Family Medicine Geriatric Medicine; Visit Provider Family Medicine Geriatric Medicine
DX: J90 Pleural effusion, not elsewhere classified (principal)
CPT/HCPCS: 32555; 71046

== ENCOUNTER 2023-07-19 13:35 | Inpatient (IN) | payer MEDICARE, OTHER, SELFPAY ==
[2023-07-19 14:21] VITALS: BMI 39.6
[2023-07-19 14:23] VITALS: BP 129/67; PULSE 81; RESP 18; TEMP 36.2; O2SAT 95; BMI 39.6
--- NOTE | 2023-07-19 14:45 | HP.PCM_ITS ---
[facility] - General General Date of Admission: 07/19/23 Date of Service: 07/19/23 Chief Complaint: Here for rehabilitation. [facility] Narrative TONJA SÁNCHEZ, is a 83 Female who presents with recurrent left pleural effusion after pneumonia. She has undergone 16 thoracentesis, fluid cytology has been negative, but she had thoracentesis every 10 days. 07/10/2023 Admit to [facility]. 07/10/2023 Dr. Gardiner performed left minithoracotomy with lysis of adhesions, mechanical and chemical pleurodesis. Postoperative oxygen mask, weaned to nasal cannula. 07/11/2023 Oxygen 8 lters per nasal cannula, Lasix IV. Chest tube to water seal. 07/12/2023 Hypoxic, oxygen 12 liters NC, [employer]OUN[employer] PATTERN[employer] called. Chest X-ray showed small residual left pneumothorax, small bilateral pleural effusion with adjacent atelectasis/consolidation. Transfer ti CICU, high flow oxygen. Atrial fibrillation, Eliquis on hold. Discontinue left anterior chest tube, Lasix 40mg iv bid. 07/13/2023 Lasix held 2/2 elevated creatinine, renal consulted. Albumin iv q8 x 6 doses. Hold diuresis. Oxygen 10 liters high flow, BiPAP at night. 07/14/2023 More alert, continue Albumin, Lasix added. Midodrine added. 07/15/2023 Continue Lasix, Continue chest tube. 07/16/2023 Oxygen 12 liters high flow, BiPAP sporadic at night. OOB in chair. Discontinue chest tube. 07/17/2023 Wean oxygen, aggressive pulmonary toilet, continue diuresis. Metolazone 5mg po x 1, stop Midodrine. Toprol, Cardizem for atrial fibrillation. 07/18/2023 Creatinine 1.55, Lasix 40mg iv q12, KCL 20meq tid. Chest X-ray improved, right pleural effusion. Lasix 40mg po bid. 07/19/2023 Admit to TCU with debility, here for rehabilitation, strengthening, prior to discharge home alone. [facility] Medical History (Updated 07/19/23 @ 15:[address] Alexy Douglas MD) Actinic keratosis Atrial fibrillation Back pain BMI 39.0-39.9,adult Breast cancer Cancer Cardiology follow-up encounter Chronic anticoagulation Chronic diastolic (congestive) heart failure Chronic kidney disease, stage 3b CKD (chronic kidney disease) stage 3, GFR 30-59 ml/min COPD (chronic obstructive pulmonary disease) Diabetes Diabetes mellitus Diastolic dysfunction Dietary restriction Disc degeneration, lumbar Erosion of bladder suspension mesh Essential (primary) hypertension Fatigue Former smoker High cholesterol History of atrial fibrillation History of CHF (congestive heart failure) History of echocardiogram History of edema History of pain when walking History of renal disease History of steroid therapy History of stress test Hyperlipidemia Hypersomnia Hypertension Hypertension Hypothyroidism Hypoxia Injury of back Insulin dependent diabetes mellitus Longstanding persistent atrial fibrillation Low iron Non-rheumatic tricuspid valve insufficiency Obesity On home oxygen therapy Overactive bladder Restless legs Rheumatoid arthritis Right hip pain Secondary pulmonary arterial hypertension Shortness of breath on exertion Skin cancer Skin cancer, basal cell Skin lesion Stage 2 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 SHAKIRA (stress urinary incontinence, female) Tobacco dependence in remission UTI (urinary tract infection) Wears dentures Wears glasses Home Medications cholecalciferol (vitamin D3) 325 mcg (13,000 unit) capsule 325 mcg PO DAILY supplement 06/14/21 [History Last Taken 10/08/21] potassium chloride 20 mEq tablet,extended release 20 meq PO DAILY supplement 06/14/21 [History Last Taken 10/08/21] levothyroxine 200 mcg tablet 50 mcg PO DAILY thyroid 01/29/22 [History Last Taken Unknown] rosuvastatin 20 mg tablet 20 mg PO QHS cholesterol #30 tabs 10/08/22 [Rx Last Taken Unknown] albuterol sulfate 90 mcg/actuation aerosol inhaler 1 inh inhalation Q4H PRN COPD 11/14/22 [History Last Taken Unknown] mirabegron 50 mg tablet,extended release 24 hr (Myrbetriq) 50 mg PO QHS 11/14/22 [History Last Taken Unknown] levothyroxine 50 mcg tablet 50 mcg PO DAILY thyroid 02/14/23 [History Last Taken Unknown] finerenone 10 mg tablet (Kerendia) 10 mg PO DAILY 03/22/23 [History Last Taken Unknown] ferrous sulfate 325 mg (65 mg iron) tablet,delayed release 325 mg PO DAILY supplement 04/05/23 [History Last Taken Unknown] metoprolol tartrate 100 mg tablet 100 mg PO BID BP/heart rate #180 tabs 04/05/23 [Rx Last Taken Unknown] diltiazem HCl 240 mg capsule,extended release 24 hr 240 mg PO DAILY heart #90 caps 04/26/23 [Rx Last Taken Unknown] furosemide 40 mg tablet 40 mg PO BID fluid 04/26/23 [History Last Taken Unknown] glimepiride 1 mg tablet 1 mg PO DAILY blood sugar 04/26/23 [History Last Taken Unknown] metolazone 2.5 mg tablet 2.5 mg PO .COMPLEX #15 tabs 04/26/23 [Rx Last Taken Unknown] sacubitril 24 mg-valsartan 26 mg tablet (Entresto) 1 tab PO BID PATIENT ASSISTANCE #180 tabs 04/26/23 [Rx Last Taken Unknown] acetaminophen 500 mg tablet 650 mg PO Q4H PRN Pain Score 1-10 07/19/23 [History Last Taken Unknown] apixaban 2.5 mg tablet (Eliquis) 2.5 mg PO DAILY blood thinner 07/19/23 [History Last Taken Unknown] furosemide 10 mg/mL injection solution 40 mg IV BID remove fluid 07/19/23 [History Last Taken Unknown] insulin degludec 100 unit/mL (3 mL) subcutaneous pen 40 unit subcut QHS blood sugar 07/19/23 [History Last Taken Unknown] tramadol 50 mg tablet 25 mg PO Q8H PRN PRN pain 07/19/23 [History Last Taken Unknown] Allergy/AdvReac Type Severity Reaction Status Date / Time Sulfa (Sulfonamide Allergy PEELING Verified 06/10/23 13:06 Antibiotics) RASH Family History Mother Colon cancer Cancer skin, bladder Daughter Cancer Thyroid Sister CAD (coronary artery disease) Surgical History History of cardioversion (03/20/19) History of excision of lesion History of hysterectomy History of left heart catheterization (05/31/14) History of partial mastectomy Hx of colonoscopy Hx of left cataract extraction Hx of local excision of skin lesion Hx of right cataract extraction Social History household members: none housing: house current occupational status: retired Smoking Status: Former smoker how long ago did patient quit smokin, 2p/day second hand exposure: Yes alcohol intake: current alcohol intake frequency: holidays/special occasions only substance use type: does not use ROS Constitutional Constitutional: Reports fatigue and weakness; Denies chills, fever(s) or weight gain ENT HEENT: Denies headache(s), nasal congestion or nasal discharge Cardiovascular Cardiovascular: Denies chest pain or palpitations Respiratory/Chest Respiratory/Chest: Reports shortness of breath at rest and shortness of breath with exertion; Denies cough or excessive phlegm production Gastrointestinal Gastrointestinal: Denies abdominal pain, nausea or vomiting Genitourinary Genitourinary: Denies dysuria Musculoskeletal Musculoskeletal: Denies joint pain or joint swelling Integumentary Integumentary: Denies rash or wounds Neurologic Neurologic: Denies focal weakness, numbness or tingling Psychiatric Psychiatric: Denies anxiety, auditory hallucinations, depression, homicidal ideation or suicidal ideation Vital Signs Vital Signs Vital Signs: 07/19/23 14:23 Temperature 97.1 F L Temperature Source Temporal Pulse Rate 81 Respiratory Rate 18 Blood Pressure 129/67 H Blood Pressure Mean 87 Blood Pressure Source Monitor Blood Pressure Position Semi-Fowlers Blood Pressure Location Left Arm Pulse Ox 95 Oxygen Delivery Method Nasal Cannula Oxygen Flow Rate (L/min) 6 Weight Weight: 118.297 kg Body Mass Index (BMI) 39.6 Physical Exam Const alert General Appearance: cooperative HEENT normocephalic Eyes PERRL and EOMs intact bilaterally Neck supple, no JVD and no carotid bruits Resp normal respiratory effort, normal air movement and clear to auscultation bilaterally Auscultation: diminished lung sounds left Cardio regular rate and regular rhythm GI normal to inspection, nondistended, normoactive bowel sounds, non-tender and non-distended Extremity normal capillary refill General Extremity: Negative for edema Skin no rashes or lesions noted General Skin Exam: no breakdown Psych affect normal Appearance: appropriate Assessment & Plan Assessment/Plan (1) Debility: (2) Recurrent left pleural effusion: (3) Acute respiratory failure with hypoxia: (4) Acute HFrEF (heart failure with reduced ejection fraction): (5) Atrial fibrillation with RVR: (6) Macular degeneration: (7) COPD (chronic obstructive pulmonary disease): (8) Diabetes: (9) Morbid obesity: (10) Chronic kidney disease, stage 3b: (11) Hypothyroidism: (12) Hyperlipidemia: (13) Proteinuria: PLAN: Plan 83 year old female with below past medical history significant for recurrent left pleural effusion requiring repeated thoracentesis, hospitalized for thorascopic left pleurodesis, complicated by acute respiratory failure with hypoxia, atrial fibrillation with RVR, acute on chronic HFrEF, admitted to TCU with debility, here for rehabilitation, strengthening, prior to discharge home alone. * Debility - PT/OT. * Pain - Tylenol 1000mg q6 prn pain (1-5), Tramadol 50mg q6 prn pain (6-10). * Bowel - senna/colace 1 tablet bid, Dulcolax 10mg po daily prn. * Adult immunization - Administer pneumonia vaccine, covid vaccine, flu vaccine as appropriate. * DVT prophylaxis - on Eliquis. * COPD - Albuterol 1 puff q4h prn. * Atrial fibrillation - Metoprolol 100mg bid, Diltiazem 240mg qhs, Eliquis 2.5mg bid. * Hyperlipidemia - Atorvastatin 40mg qhs. * Iron deficiency - Ferrex 150mg daily. * HFrEF - Metoprolol 100mg bid, Furosemide 40mg iv bidlx, CXR tomorrow. * CKD stage 3b - monitor closely with diuresis, BMP tomorrow. * Diabetes Mellitus II - Glimepiride 1mg daily, Glargine 40 units qhs. * Hypothyroidism - Levothyroxine 250mcg daily. * Hypokalemia - KCL 20meq tid.
[2023-07-19] MEDS: Furosemide 40 MG/4 ML Vial IV (15:45)
[2023-07-19] MEDS: Potassium Chloride Oral Tablet 20 MEQ PO (17:25)
[2023-07-19 17:30] VITALS: O2SAT 97
--- NOTE | 2023-07-19 17:30 | CPS ---
Patient was asked about BiPAP use. She denies having a bipap unit at home, stating 'only since surgery.' Patient is unsure of settings but used a full face mask. Patient stated she has 2lpm O2 PRN at home.
--- NOTE | 2023-07-19 20:17 | CPS ---
SLOT FLOOR SUPERVISOR spoke to patient about PAP use. Patient stated that she does not wear a CPAP machine at home. Patient is unsure if she has ever worn one during a hospital stay. Patient also stated that she has had sleep studies done before in the past, but is unsure if she has sleep apnea. RT brought PAP machine to patient's room to explain what it is and what its used for. Patient didn't recognize this device. Patient refused for the night and wished to just wear the oxygen. RT placed patient on CPOX monitor since unsure if she has JASVIR and explained to patient that we can monitor SPO2 and increase oxygen if needed during sleep.
[2023-07-19 21:29] VITALS: BP 135/64; PULSE 88
[2023-07-19] MEDS: Metoprolol Tartrate 100 MG Tablet PO (21:29)
[2023-07-19] MEDS: APIXABAN 2.5 MG TABLET (WCH) PO (21:29)
[2023-07-19] MEDS: Menthol/Lanolin/Calamine/Znox 113 GM Tube 1 APPLIC TOPICAL (21:29)
[2023-07-19] MEDS: Atorvastatin Calcium 40 MG Tablet PO (21:29)
[2023-07-19] MEDS: dilTIAZem CD 240 MG Capsule PO (21:29)
[2023-07-19] MEDS: Senna/Docusate Sodium 1 Tablet PO (21:30)
[2023-07-19] MEDS: Insulin Glargine-YFGN 100 UNIT/ML Pen 40 UNIT SC (21:30)
[2023-07-19] MEDS: traMADol 50 MG Tablet PO (21:35)
[2023-07-19 21:40] LABS: Bedside Glucose 202 mg/dL (74-106)
[2023-07-19] MEDS: Nystatin Powder 15gm Bottle 1 APPLIC TOPICAL (22:44)
[2023-07-20] VITALS (7 sets, daily range): BP systolic 123–138; BP diastolic 68–71; PULSE 83–95; RESP 20; TEMP 36.4; O2SAT 96–98
[2023-07-20] MEDS: Levothyroxine 50 MCG Tablet PO (05:38)
[2023-07-20] MEDS: Levothyroxine 100 MCG Tablet 200 MCG PO (05:38)
[2023-07-20] MEDS: traMADol 50 MG Tablet PO (05:38)
[2023-07-20] MEDS: Furosemide 40 MG/4 ML Vial IV ×2 (06:56→14:02)
[2023-07-20 07:06] LABS: Bedside Glucose 104 mg/dL (74-106)
[2023-07-20 08:07] LABS: Absolute Lymphocyte Count 0.84 X10^3/uL (0.83-4.51); Absolute Neutrophil Count 8.2 X10^3/uL (2.0-7.7); Basophil# 0.03 X10^3/uL; Basophil% 0.3 % (0-1); Eosinophil# 0.59 X10^3/uL; Eosinophils% 5.2 % (0-5); Hematocrit 36.3 % (37-47); Hemoglobin 11.2 g/dL (12.0-15.0); Lymphocyte # 0.84 X10^3/ul (0.83-4.51); Lymphocyte % 7.4 % (19-41); Mean Corp Hgb Conc 30.9 g/dL (32-36); Mean Corpuscular Hgb 28.6 pg (27.0-32.0); Mean Corpuscular Volume 92.8 fL (81-99); Mean Platelet Vol. 10.2 fl (6.2-12.0); Monocyte# 1.13 X10^3/uL; NRBC Flagged by Analyzer 0 % (0-5); Neutrophil # 8.21 X10^3/uL (2.7-7.7); Neutrophil % 72.8 % (47-70); POSITIVE MORPHOLOGY YES; Platelet Count 357 K/mm3 (150-450); RBC Distribution Width CV 12.9 % (11.6-14.6); RBC Distribution Width SD 43.8 fl (35.1-43.9); Red Blood Count 3.91 M/mm3 (4.2-5.4); White Blood Count 11.3 K/mm3 (4.4-11.0)
[2023-07-20 08:12] LABS: Differential Indicated SCAN CRITERIA MET
[2023-07-20] MEDS: Potassium Chloride Oral Tablet 20 MEQ PO (08:16)
[2023-07-20] MEDS: Glimepiride 1 MG Tablet PO (08:17)
[2023-07-20] MEDS: Iron Polysaccharide Complex 150 MG CAPSULE PO (08:17)
[2023-07-20] MEDS: APIXABAN 2.5 MG TABLET (WCH) PO ×2 (08:17→21:52)
[2023-07-20] MEDS: Senna/Docusate Sodium 1 Tablet PO ×2 (08:17→21:52)
[2023-07-20] MEDS: Metoprolol Tartrate 100 MG Tablet PO ×2 (08:18→21:51)
[2023-07-20] MEDS: Nystatin Powder 15gm Bottle 1 APPLIC TOPICAL ×2 (08:21→21:57)
[2023-07-20] MEDS: Menthol/Lanolin/Calamine/Znox 113 GM Tube 1 APPLIC TOPICAL ×2 (08:21→21:57)
[2023-07-20 08:55] LABS: Anion Gap 4 (5-15); BUN 69 mg/dL (7-18); BUN/Creat Ratio 39.4 RATIO (10-20); Chloride 93 mmol/L (98-107); Creatinine, Serum 1.75 mg/dL (0.55-1.02); EST Glomerular Filtration Rate 29 mL/min (>60); Est Glom Filt Rate - Afr Amer 36 mL/min (>60); Estimated Creatinine Clearance 32.36 ml/min; Glucose 148 mg/dL (74-106); Potassium 3.3 mmol/L (3.5-5.1); Sodium Level 135 mmol/L (136-145)
--- NOTE | 2023-07-20 09:00 | RAD_ITS ---
HISTORY: pleural effusion. TECHNIQUE: XR Chest 2 Views. COMPARISON: 07/05/2023. FINDINGS: CARDIOMEDIASTINAL BORDERS: Cardiac silhouette and mediastinal contour unchanged in size with mild cardiomegaly. LUNGS: Mild bibasilar opacities, new on the left. PLEURA: Decreased left pleural effusion. New mild right pleural effusion. OSSEOUS STRUCTURES: Degenerative change.. RAD/Chest PA and Lateral IMPRESSION: Bilateral pleural effusions with bibasilar atelectasis or pneumonia, decreased on the left and new on the right. Electronically Signed: Faustina Lee MD at 11:02 EDT ,
[2023-07-20] MEDS: Tuberculin,Purif.prot.deriv. 50 TU/ML Vial 0.1 ML ID (10:06)
[2023-07-20 10:12] LABS: Differential Comment SCANNED
[2023-07-20] MEDS: 0.9% Saline Lock 10 ML Syringe IV (14:02)
[2023-07-20] MEDS: Potassium Chloride Oral Tablet 20 MEQ 40 MEQ PO (17:16)
--- NOTE | 2023-07-20 17:17 | NURSING ---
dr pugh updated on cxr results, new order to repeat xray on Saturday07/22/23
--- NOTE | 2023-07-20 17:57 | NURSING ---
Markus, pharmacy called regarding severe interaction w/ultram lowering seizure threshold. dr pugh notified, ok to give as ordered.
--- NOTE | 2023-07-20 21:30 | CPS ---
[1955] Pt. politely refused use on BiPAP at this time. Pt. is on 6L NC with appropriate oxygen saturations at this time.
[2023-07-20 21:50] LABS: Bedside Glucose 155 mg/dL (74-106)
[2023-07-20] MEDS: dilTIAZem CD 240 MG Capsule PO (21:51)
[2023-07-20] MEDS: Doxepin Hydrochloride 10 MG Capsule PO (21:51)
[2023-07-20] MEDS: Atorvastatin Calcium 40 MG Tablet PO (21:51)
[2023-07-20] MEDS: Insulin Glargine-YFGN 100 UNIT/ML Pen 40 UNIT SC (21:52)
[2023-07-21] MEDS: Furosemide 40 MG/4 ML Vial IV ×2 (05:05→14:30)
[2023-07-21] MEDS: Levothyroxine 100 MCG Tablet 200 MCG PO (05:07)
[2023-07-21] MEDS: Levothyroxine 50 MCG Tablet PO (05:08)
[2023-07-21] MEDS: 0.9% Saline Lock 10 ML Syringe IV ×2 (05:11→14:30)
[2023-07-21 06:12] LABS: Bedside Glucose 162 mg/dL (74-106)
[2023-07-21 08:02] VITALS: O2SAT 97
[2023-07-21 08:34] VITALS: BP 137/72; PULSE 91; RESP 18; TEMP 36.1; O2SAT 96
[2023-07-21 08:37] VITALS: PULSE 91
[2023-07-21] MEDS: Senna/Docusate Sodium 1 Tablet PO ×2 (08:37→21:44)
[2023-07-21] MEDS: Metoprolol Tartrate 100 MG Tablet PO ×2 (08:37→21:43)
[2023-07-21] MEDS: Potassium Chloride Oral Tablet 20 MEQ 40 MEQ PO ×2 (08:37→17:55)
[2023-07-21] MEDS: Glimepiride 1 MG Tablet PO (08:38)
[2023-07-21] MEDS: Menthol/Lanolin/Calamine/Znox 113 GM Tube 1 APPLIC TOPICAL ×2 (08:38→21:48)
[2023-07-21] MEDS: APIXABAN 2.5 MG TABLET (WCH) PO ×2 (08:38→21:43)
[2023-07-21] MEDS: Iron Polysaccharide Complex 150 MG CAPSULE PO (08:38)
[2023-07-21] MEDS: Nystatin Powder 15gm Bottle 1 APPLIC TOPICAL ×2 (08:39→21:48)
[2023-07-21 11:20] LABS: Bedside Glucose 141 mg/dL (74-106)
[2023-07-21 16:53] LABS: Bedside Glucose 128 mg/dL (74-106)
[2023-07-21 21:28] LABS: Bedside Glucose 159 mg/dL (74-106)
[2023-07-21 21:43] VITALS: BP 145/66; PULSE 106
[2023-07-21] MEDS: dilTIAZem CD 240 MG Capsule PO (21:43)
[2023-07-21] MEDS: Atorvastatin Calcium 40 MG Tablet PO (21:43)
[2023-07-21] MEDS: Doxepin Hydrochloride 10 MG Capsule PO (21:44)
[2023-07-21] MEDS: Insulin Glargine-YFGN 100 UNIT/ML Pen 40 UNIT SC (21:44)
[2023-07-22] MEDS: traMADol 50 MG Tablet PO (02:45)
[2023-07-22] MEDS: Acetaminophen 500 MG Tablet 1000 MG PO (02:46)
[2023-07-22] MEDS: Levothyroxine 50 MCG Tablet PO (05:19)
[2023-07-22] MEDS: Levothyroxine 100 MCG Tablet 200 MCG PO (05:19)
[2023-07-22] MEDS: Furosemide 40 MG/4 ML Vial IV ×2 (06:18→14:44)
[2023-07-22] MEDS: 0.9% Saline Lock 10 ML Syringe IV ×3 (06:18→14:45)
[2023-07-22 06:28] LABS: Bedside Glucose 155 mg/dL (74-106)
[2023-07-22 06:30] LABS: Anion Gap 7 (5-15); BUN 70 mg/dL (7-18); BUN/Creat Ratio 38.5 RATIO (10-20); Calcium,Total 9.5 mg/dL (8.5-10.1); Chloride 92 mmol/L (98-107); Creatinine, Serum 1.82 mg/dL (0.55-1.02); EST Glomerular Filtration Rate 28 mL/min (>60); Est Glom Filt Rate - Afr Amer 34 mL/min (>60); Estimated Creatinine Clearance 31.12 ml/min; Glucose 115 mg/dL (74-106); Potassium 3.2 mmol/L (3.5-5.1); Sodium Level 137 mmol/L (136-145)
[2023-07-22] MEDS: Glimepiride 1 MG Tablet PO (07:52)
[2023-07-22] MEDS: Potassium Chloride Oral Tablet 20 MEQ 40 MEQ PO ×3 (07:52→16:16)
[2023-07-22] MEDS: APIXABAN 2.5 MG TABLET (WCH) PO ×2 (09:13→23:07)
[2023-07-22 09:14] VITALS: BP 147/67; PULSE 89
[2023-07-22] MEDS: Metoprolol Tartrate 100 MG Tablet PO ×2 (09:14→23:06)
[2023-07-22] MEDS: Iron Polysaccharide Complex 150 MG CAPSULE PO (09:14)
[2023-07-22] MEDS: Senna/Docusate Sodium 1 Tablet PO (09:15)
[2023-07-22] MEDS: Nystatin Powder 15gm Bottle 1 APPLIC TOPICAL ×2 (09:16→23:05)
[2023-07-22] MEDS: Menthol/Lanolin/Calamine/Znox 113 GM Tube 1 APPLIC TOPICAL ×2 (09:16→23:05)
[2023-07-22 09:19] VITALS: BP 147/67; PULSE 89; RESP 16; O2SAT 98
--- NOTE | 2023-07-22 09:31 | PCM.PN.DRR ---
Documented by User: Freda Scott 07/22/23 10:18 TCU RX Drug Regimen Review Subjective/Objective Subjective/Objective: Subjective: TCU Admission. 83 YOF presented with recurrent left pleural effusion requiring repeated thoracentesis. Hospitalized for thorascopic left pleurodesis, complicated by acute respiratory failure with hypoxia, atrial fibrillation with RVR, acute on chronic HFrEF. Admitted to TCU with debility for strengthening and rehabilitation. Objective: Allergies Sulfa (Sulfonamide Antibiotics) Allergy (Verified 06/10/23 13:06) PEELING RASH Current Medications Generic Name Dose Route Start Last Admin Trade Name Freq PRN Reason Stop Dose Admin Acetaminophen 1,000 mg 07/19/23 15:32 07/22/23 02:46 Acetaminophen 500 Mg Tablet PO 1,000 mg Q6H PRN PRN Administration Pain Score 1-5 Albuterol Sulfate 1 puff 07/19/23 14:29 Albuterol Ih (6.7 Gm) 1 Puff Inhaler INHALATION Q4H PRN COPD Apixaban 2.5 mg 07/19/23 22:00 07/22/23 09:13 Apixaban 2.5 Mg Tablet ([facility]) PO 2.5 mg BID DAVID Administration Atorvastatin Calcium 40 mg 07/19/23 22:00 07/21/23 21:43 Atorvastatin Calcium 40 Mg Tablet PO 40 mg QHS DAVID Administration Bisacodyl 10 mg 07/19/23 15:16 Bisacodyl 5 Mg Tablet PO DAILY PRN Constipation Calamine/Phenol 1 applic 07/19/23 22:00 07/22/23 09:16 Menthol/Lanolin/Calamine/Znox 113 Gm Tube TOPICAL 1 applic BID DAVID Administration Protocol Diltiazem HCl 240 mg 07/19/23 22:00 07/21/23 21:43 Diltiazem Cd 240 Mg Capsule PO 240 mg QHS DAVID Administration Protocol Doxepin HCl 10 mg 07/20/23 22:00 07/21/23 21:44 Doxepin Hydrochloride 10 Mg Capsule PO 10 mg QHS DAVID Administration Furosemide 40 mg 07/19/23 14:00 07/22/23 06:18 Furosemide 40 Mg/4 Ml Vial IV 40 mg BIDLX DAVID Administration Protocol Glimepiride 1 mg 07/20/23 08:00 07/22/23 07:52 Glimepiride 1 Mg Tablet PO 1 mg DAILYCM DAVID Administration Insulin Glargine 40 unit 07/19/23 22:00 07/21/23 21:44 Insulin Glargine-Yfgn 100 Unit/Ml Pen SC 40 unit QHS [facility] Administration Levothyroxine Sodium 200 mcg 07/20/23 06:00 07/22/23 05:19 Levothyroxine 100 Mcg Tablet PO 200 mcg DAILY@0600 DAVID Administration Levothyroxine Sodium 50 mcg 07/20/23 06:00 07/22/23 05:19 Levothyroxine 50 Mcg Tablet PO 50 mcg DAILY@0600 [facility] Administration Metoprolol Tartrate 100 mg 07/19/23 22:00 07/22/23 09:14 Metoprolol Tartrate 100 Mg Tablet PO 100 mg BID [facility] Administration Protocol Nystatin 1 applic 07/19/23 22:00 07/22/23 09:16 Nystatin Powder 15gm Bottle TOPICAL 1 applic BID [facility] Administration Protocol Polysaccharide Iron Complex 150 mg 07/20/23 10:00 07/22/23 09:14 Iron Polysaccharide Complex 150 Mg Capsule PO 150 mg DAILY [facility] Administration Potassium Chloride 40 meq 07/22/23 07:45 07/22/23 07:52 Potassium Chloride Oral Tablet 20 Meq PO 40 meq TIDCM [facility] Administration Senna/Docusate Sodium 1 tablet 07/19/23 22:00 07/22/23 09:15 Senna/Docusate Sodium 1 Tablet PO 1 tablet BID [facility] Administration Sodium Chloride 10 - 40 ml 07/20/23 05:43 07/22/23 06:35 0.9% Saline Lock 10 Ml Syringe IV 10 ml UD PRN Administration SALINE FLUSH Tramadol HCl 50 mg 07/19/23 15:09 07/22/23 02:45 Tramadol 50 Mg Tablet PO 50 mg Q6H PRN PRN Administration Pain Score 6-10 or Pre PT/OT Tuberculin PPD 0.1 ml 07/27/23 10:00 Tuberculin,Purif.Prot.Deriv. 50 Tu/Ml Vial ID 07/27/23 10:01 X1 ONE Problem List (Updated 07/19/23 @ 15:[address] Alexy Douglas MD) Proteinuria (Acute) Hyperlipidemia (Acute) Hypothyroidism (Acute) Chronic kidney disease, stage 3b (Acute) Morbid obesity (Acute) Diabetes (Acute) COPD (chronic obstructive pulmonary disease) (Chronic) Macular degeneration (Acute) Acute HFrEF (heart failure with reduced ejection fraction) (Acute) Recurrent left pleural effusion (Acute) Vital Signs Temp Pulse Resp BP Pulse Ox O2 Del Method O2 Flow Rate 97 F L 89 16 147/67 H 98 Nasal Cannula 5 07/21/23 08:34 07/22/23 09:19 07/22/23 09:19 07/22/23 09:19 07/22/23 09:19 07/22/23 09:19 07/22/23 09:19 Oxygen Flow Rate (L/min) 5 Oxygen Delivery Method Nasal Cannula Weight: 118.297 kg Body Mass Index (BMI) 39.6 Sodium 137 mmol/L (136-145) 07/22/23 05:15 Potassium 3.2 mmol/L (3.5-5.1) L 07/22/23 05:15 Chloride 92 mmol/L (98-107) L 07/22/23 05:15 Carbon Dioxide 38.0 mmol/L (21.0-32.0) H 07/22/23 05:15 Anion Gap 7 (5-15) 07/22/23 05:15 BUN 70 mg/dL (7-18) H 07/22/23 05:15 Creatinine 1.82 mg/dL (0.55-1.02) H 07/22/23 05:15 Est GFR (MDRD) Af Amer 34 mL/min (>60) L 07/22/23 05:15 Est GFR (MDRD) Non-Af 28 mL/min (>60) L 07/22/23 05:15 BUN/Creatinine Ratio 38.5 RATIO (10-20) H 07/22/23 05:15 Glucose 115 mg/dL (74-106) H 07/22/23 05:15 Assessment/Plan: 1. Pain: acetaminophen 1000mg PO Q6H PRN pain 1-5 and tramadol 50mg PO Q6H PRN pain 6-10. Resident has had 1 dose of acetaminophen and 3 doses of tramadol for pain scores of 8 and 9. Please continue to monitor for increased pain, PRN usage, constipation, renal function and respiratory depression. 2. Bowel: senna/docusate 1T PO BID and bisacodyl 10mg PO daily PRN constipation. Resident has not had any PRN doses. No documented bowel movements so far. Please continue to monitor for constipation and PRN usage. 3. Atrial fibrillation/HFrEF: metoprolol tartrate 100mg PO BID, diltiazem CD 240mg PO QHS, furosemide 40mg PO IV BIDLX and apixaban 2.5mg PO BID (dose appropriate, age 83 and SCr 1.82mg/dL). Please continue to monitor BP (last 145/66), HR (last 106), renal function, swelling, potassium (last 3.2 mmol/L), S/S of bleeding, and hemoglobin (last 11.2g/dL). 4. Hyperlipidemia: atorvastatin 40mg PO QHS. Please consider ordering a lipid panel as the last was from 11/2013 if clinically appropriate. Thanks. Please continue to monitor LFTs (last 04/24/23) and muscle pain. 5. Diabetes mellitus II: glimepiride 1mg PO daily and insulin glargine 40units SC daily. Please consider ordering a hemoglobin A1c (last 7.1% 02/15/23) if clinically appropriate. Thanks. Please continue to monitor for S/S of hypoglycemia and glucose (last 155mg/dL). 6. COPD: albuterol MDI 1 puff Q4H PRN COPD. Resident has not had any PRN doses so far. Please continue to monitor for PRN usage. 7. Hypothyroidism: levothyroxine 250mcg PO daily. Please continue to monitor TSH (last 04/24/23) and S/S of hypo/hyperthyroidism. 9. Iron deficiency: Ferrex 150mg PO daily. Please continue to monitor hemoglobin (last 11.2g/dL), constipation and dark stools. 10. Hypokalemia: potassium chloride 40mEq PO TIDCM. Please continue to monitor potassium levels (last 3.2mmol/L). Assessment/Plan for indications treated with psychotropic medications: Doxepin, see below. Medical chart and medication regimen reviewed. The following medication irregularities or issues were identified: 1. Atorvastatin 40mg PO QHS. Please consider ordering a lipid panel as the last was from 11/2013 if clinically appropriate. Thanks. 2. Doxepin 10mg PO QHS. I did not see a documented indication for this medication. Please consider adding the indication if clinically indicated. New medication, GDR not appropriate. Date Date of Note:: 07/22/23 Documented by User: Dr. Alexy Douglas MD 07/22/23 10:38 TCU RX Drug Regimen Review Provider Comments Provider responsibility Provider Comments to Recommendations by Pharmacy: Agree
--- NOTE | 2023-07-22 09:33 | RAD_ITS ---
STUDY: X-RAY CHEST REASON FOR EXAM: Female, 83 years old. Pleural effusions TECHNIQUE: AP and lateral views of the chest. COMPARISON: Comparison is made with prior study July 20, 2023. FINDINGS: The previously seen CHF has improved. Interval improvement in the bibasilar atelectasis. There has been improvement of the small bilateral pleural effusions. There is borderline cardiomegaly. Normal mediastinum and binh. Normal visualized pulmonary arteries. Normal visualized aortic arch and descending thoracic aorta. Normal visualized thoracic spine. Normal visualized ribs, clavicles, and shoulders. There is no demonstrated abnormality of the visualized soft tissue structures of the upper abdomen. RAD/Chest PA and Lateral IMPRESSION: Interval improved aeration of both lungs with the improvement of both pleural effusions. Electronically Signed: Huey Gomez MD at 13:45 EDT ,
--- NOTE | 2023-07-22 12:24 | NURSING ---
Air And Water Filler Note; Activity Asset: Rik Donohue is independent in her choice of daily activities with reminders. She has a cell phone and will read or watch tv. She has stated she really wants to just rest right now when not in therapy. She welcomes visits from the isotope technician and therapy dog when available. Staff will encourage group activities and respect her right to say no.
[2023-07-22 14:43] VITALS: O2SAT 98
[2023-07-22 15:00] VITALS: O2SAT 97
--- NOTE | 2023-07-22 15:12 | EKG12_ITS ---
Test Reason : AFIB Blood Pressure : / mmHG Vent. Rate : 081 BPM Atrial Rate : 119 BPM P-R Int : 000 ms QRS Dur : 146 ms QT Int : 416 ms P-R-T Axes : 000 028 -18 degrees QTc Int : 483 ms Atrial fibrillation Right bundle branch block Abnormal ECG Confirmed by Subhash Malone ([id number]), writer editor CHARITY NETTLES ([id number]) on 07/24/2023 6:57:17 AM Referred By: Alexy Douglas Confirmed By:Subhash Malone
--- NOTE | 2023-07-22 15:54 | NURSING ---
Patient seems tired today, sleepy throughout the day w/ little energy. She does wake up easily, oriented and appropriate. OT noted she seems less energetic and awake than over the weekend. VSS. Repeat xray today, improved from the previous one. EKG shows afib, rate controlled. Patient denies any chest pain or pressure. Does say she has some shortness of breath. On 5L NC w/ sats in the mid 90s. Left note updating Dr. Douglas.
[2023-07-22 16:00] VITALS: BP 126/64; PULSE 68; RESP 16; TEMP 36.1; O2SAT 96
[2023-07-22 18:55] LABS: Absolute Lymphocyte Count 1.27 X10^3/uL (0.83-4.51); Absolute Neutrophil Count 8.9 X10^3/uL (2.0-7.7); Basophil% 0.8 % (0-1); Eosinophil# 0.58 X10^3/uL; Eosinophils% 4.7 % (0-5); Hematocrit 37.9 % (37-47); Hemoglobin 11.7 g/dL (12.0-15.0); Lymphocyte # 1.27 X10^3/ul (0.83-4.51); Lymphocyte % 10.3 % (19-41); Mean Corp Hgb Conc 30.9 g/dL (32-36); Mean Corpuscular Hgb 28.3 pg (27.0-32.0); Mean Corpuscular Volume 91.8 fL (81-99); Mean Platelet Vol. 9.7 fl (6.2-12.0); Monocyte# 1.16 X10^3/uL; Monocyte% 9.4 % (0-10); NRBC Flagged by Analyzer 0 % (0-5); Neutrophil # 8.89 X10^3/uL (2.7-7.7); Neutrophil % 72.2 % (47-70); Platelet Count 375 K/mm3 (150-450); RBC Distribution Width SD 43.5 fl (35.1-43.9); Red Blood Count 4.13 M/mm3 (4.2-5.4); White Blood Count 12.3 K/mm3 (4.4-11.0)
--- NOTE | 2023-07-22 18:55 | RAD_ITS ---
INDICATION: More short of breath. EXAMINATION/TECHNIQUE: X-RAY - XR Chest 2 Views COMPARISON: 07/22/2023 at 9:34 AM FINDINGS: LIFE-SUPPORT AND LINES: 1. None HEART AND VESSELS: Cardiac silhouette is unchanged. No evidence of congestive failure. LUNGS AND PLEURAL SPACES: Basilar atelectasis greater on the LEFT than RIGHT and blunting LEFT CP angle consistent with pleural thickening versus pleural fluid. Findings are stable. No pulmonary mass is noted. MEDIASTINUM AND HILAR REGIONS: No masses adenopathy noted. No areas of calcification. Visualized upper airway is normal in position. BONY ELEMENTS: No acute bony changes noted. RAD/Chest PA and Lateral IMPRESSION: 1. Shallow inspiration, bibasilar atelectasis greater on LEFT than RIGHT and blunting LEFT CP angle which appears stable. 2. Borderline cardiomegaly, no evidence congestive failure. Electronically Signed: Miguel Brothers MD at 20:32 EDT ,
[2023-07-22 19:08] LABS: Anion Gap 6 (5-15); BUN 69 mg/dL (7-18); BUN/Creat Ratio 35.2 RATIO (10-20); Calcium,Total 9.3 mg/dL (8.5-10.1); Chloride 92 mmol/L (98-107); Creatinine, Serum 1.96 mg/dL (0.55-1.02); EST Glomerular Filtration Rate 26 mL/min (>60); Est Glom Filt Rate - Afr Amer 31 mL/min (>60); Estimated Creatinine Clearance 28.89 ml/min; Glucose 175 mg/dL (74-106); Potassium 4.2 mmol/L (3.5-5.1); Sodium Level 135 mmol/L (136-145)
[2023-07-22 19:10] LABS: BNP,B-Type NATRIURETIC PEPTIDE 131.4 pg/mL (0-100)
[2023-07-22 21:51] LABS: Bedside Glucose 135 mg/dL (74-106)
[2023-07-22 23:06] VITALS: BP 148/64; PULSE 104
[2023-07-22] MEDS: Atorvastatin Calcium 40 MG Tablet PO (23:07)
[2023-07-22] MEDS: dilTIAZem CD 240 MG Capsule PO (23:08)
[2023-07-22] MEDS: Doxepin Hydrochloride 10 MG Capsule PO (23:08)
[2023-07-22] MEDS: Insulin Glargine-YFGN 100 UNIT/ML Pen 40 UNIT SC (23:09)
[2023-07-23] VITALS (8 sets, daily range): BP systolic 124–128; BP diastolic 58–65; PULSE 83–89; RESP 16; TEMP 36.3; O2SAT 94–98; BMI 38.0
--- NOTE | 2023-07-23 04:37 | NURSING ---
Continuous pulse oximeter alarming. SpO2 decreased to 79% on 4-5 lpm via nc. This nurse woke resident to engage in deep breathing exercises using IS and liter flow increased to 6 lpm. SpO2 rapidly increased to 91%. In no acute distress. Educated on the importance of using IS x10 deep breaths every hr WA. Will continue to monitor.
[2023-07-23] MEDS: Levothyroxine 50 MCG Tablet PO (05:28)
[2023-07-23] MEDS: Levothyroxine 100 MCG Tablet 200 MCG PO (05:28)
[2023-07-23 06:09] LABS: Anion Gap 6 (5-15); BUN 66 mg/dL (7-18); BUN/Creat Ratio 35.5 RATIO (10-20); Calcium,Total 9.4 mg/dL (8.5-10.1); Chloride 93 mmol/L (98-107); Cholesterol 154 mg/dL (200); Creatinine, Serum 1.86 mg/dL (0.55-1.02); EST Glomerular Filtration Rate 27 mL/min (>60); Est Glom Filt Rate - Afr Amer 33 mL/min (>60); Estimated Creatinine Clearance 30.45 ml/min; Glucose 90 mg/dL (74-106); High Density Lipoprotein 32 mg/dL; Potassium 3.7 mmol/L (3.5-5.1); Sodium Level 136 mmol/L (136-145); Triglycerides 203 mg/dL; Very Low Density Lipoprotein 41 mg/dL (5-40)
[2023-07-23] MEDS: Furosemide 40 MG/4 ML Vial IV ×2 (06:45→12:30)
[2023-07-23] MEDS: 0.9% Saline Lock 10 ML Syringe IV ×4 (06:48→21:53)
[2023-07-23 07:16] LABS: Bedside Glucose 85 mg/dL (74-106)
[2023-07-23] MEDS: Metoprolol Tartrate 100 MG Tablet PO ×2 (08:12→22:03)
[2023-07-23] MEDS: Glimepiride 1 MG Tablet PO (08:12)
[2023-07-23] MEDS: Potassium Chloride Oral Tablet 20 MEQ 40 MEQ PO ×3 (08:12→17:27)
[2023-07-23] MEDS: Iron Polysaccharide Complex 150 MG CAPSULE PO (08:13)
[2023-07-23] MEDS: APIXABAN 2.5 MG TABLET (WCH) PO ×2 (08:13→22:01)
[2023-07-23] MEDS: Nystatin Powder 15gm Bottle 1 APPLIC TOPICAL ×2 (08:14→22:03)
[2023-07-23] MEDS: Senna/Docusate Sodium 1 Tablet PO ×2 (08:14→22:04)
[2023-07-23] MEDS: Menthol/Lanolin/Calamine/Znox 113 GM Tube 1 APPLIC TOPICAL ×2 (08:14→22:00)
--- NOTE | 2023-07-23 09:06 | MDS.RN ---
[facility] registration notified to update with correct phone number for dtr Marleny, per dtr request.
--- NOTE | 2023-07-23 09:37 | CASEMGMT ---
Social Work SW met with patient at bedside to complete initial intake assessment. SW introduced self and role. Patient confirmed demographics and contact information. Patient informed SW that she has an advanced directive with daughterJaquelin assigned as Primary. Patient confirmed code status as [id number], No intubation. Patient was notified to have a copy of advanced directive provided for medical records. Patient was educated about Medicare benefits and copay coverage. Patient goal is to return home. SW discussed home health care, patient currently declines home health care services. Patient has a history of [facility] for PT/OT/SN/MACHINE OVERHAULER. Patient is new to home O2. [facility] previously utilized for home O2 orders in 10/2021. SW attempted to contact [facility] to confirm history of Home O2; no answer. SW left a voicemail for return call. SW will continue to follow for discharge planning. LANCE Dover
[2023-07-23] MEDS: SACUBITRIL/VALSARTAN 24/26 MG TABLET 1 EACH PO ×2 (10:50→22:02)
--- NOTE | 2023-07-23 10:53 | NURSING ---
NOTIFIED R' OF [facility]. [facility]. AGREEABLE. DOSE GIVEN AT THIS TIME.
--- NOTE | 2023-07-23 15:43 | NURSING ---
Offered covid vaccine, VIS provided. Patient thinks she already had one this year and refuses at this time.
[2023-07-23 22:00] LABS: Bedside Glucose 133 mg/dL (74-106)
[2023-07-23] MEDS: dilTIAZem CD 240 MG Capsule PO (22:00)
[2023-07-23] MEDS: Atorvastatin Calcium 40 MG Tablet PO (22:02)
[2023-07-23] MEDS: Doxepin Hydrochloride 10 MG Capsule PO (22:04)
[2023-07-23] MEDS: Insulin Glargine-YFGN 100 UNIT/ML Pen 40 UNIT SC (22:05)
[2023-07-23] MEDS: Acetaminophen 500 MG Tablet 1000 MG PO (22:14)
[2023-07-23] MEDS: traMADol 50 MG Tablet PO (22:14)
[2023-07-24] MEDS: Levothyroxine 100 MCG Tablet 200 MCG PO (05:12)
[2023-07-24] MEDS: Levothyroxine 50 MCG Tablet PO (05:12)
[2023-07-24 05:14] VITALS: BMI 38.0
--- NOTE | 2023-07-24 06:17 | NURSING ---
Addendum entered by Bebeto Bosch 07/24/23 06:54: PT blood sugar rechecked 103, Original Note: Updated that PT's blood sugar is 64, OJ and peanut butter given, resident is asymptomatic, awake and alert, watching tv, denies any needs at time,
[2023-07-24 06:24] LABS: Bedside Glucose 64 mg/dL (74-106)
[2023-07-24 06:56] LABS: Bedside Glucose 103 mg/dL (74-106)
--- NOTE | 2023-07-24 08:21 | NURSING ---
HS shift RN unable to administer IV Lasix this morning d/t IV infililtration. discontinued IV, attempt x2 to start new IV, unsuccessful. RN notified Dr. Douglas, obtained order to d/c IV lasix and begin PO Lasix 40mg BID.
[2023-07-24 10:19] VITALS: BP 140/71; PULSE 85; RESP 18; TEMP 36.3; O2SAT 94
[2023-07-24] MEDS: Iron Polysaccharide Complex 150 MG CAPSULE PO (10:20)
[2023-07-24] MEDS: Potassium Chloride Oral Tablet 20 MEQ 40 MEQ PO ×3 (10:20→18:04)
[2023-07-24 10:21] VITALS: PULSE 85
[2023-07-24] MEDS: Senna/Docusate Sodium 1 Tablet PO ×2 (10:21→21:38)
[2023-07-24] MEDS: SACUBITRIL/VALSARTAN 24/26 MG TABLET 1 EACH PO ×2 (10:21→21:37)
[2023-07-24] MEDS: Glimepiride 1 MG Tablet PO (10:21)
[2023-07-24] MEDS: APIXABAN 2.5 MG TABLET (WCH) PO ×2 (10:21→21:37)
[2023-07-24] MEDS: Metoprolol Tartrate 100 MG Tablet PO ×2 (10:21→21:37)
[2023-07-24] MEDS: Furosemide 40 MG Tablet PO ×2 (10:22→14:06)
[2023-07-24] MEDS: predniSONE 10 MG Tablet PO (10:22)
[2023-07-24] MEDS: Nystatin Powder 15gm Bottle 1 APPLIC TOPICAL ×2 (10:25→21:47)
[2023-07-24] MEDS: Menthol/Lanolin/Calamine/Znox 113 GM Tube 1 APPLIC TOPICAL ×2 (10:25→21:46)
--- NOTE | 2023-07-24 10:31 | CASEMGMT ---
Social Work IDT met with patient at bedside to complete care plan meeting. Patient's daughter Jaquelin was contacted via phone to participate in care plan meeting. Patient is requesting to speak with Dr. Douglas. Discussed patient progress with therapy (PT/OT), dietary, and nursing. Patient continues to require 6L oxygen while working with therapy. Patient continues require assistance with care. SW discussed patient in home support. Prior to admission, patient was independent to care. Patient informed SW that she has in home supports in place. Patient previously had [facility] [place]. Patient confirmed that she has concentrator at home and tanks previously used for 2L at home. Patient will require home O2 evaluation at discharge. Patient denies any concerns. Post care plan meeting, patient's daughter, Jaquelin contacted to inform SW that the patient does not have reliable support in home for care. Jaquelin informed SW that if the patient is independent to self, she is okay with patient discharging home, but the patient will require additional assistance. Jaquelin informed that she would like to call back after 1:30P to discuss longterm care plans. SW will continue to follow for discharge planning. LANCE Dover
--- NOTE | 2023-07-24 11:33 | MDS.RN ---
Resident is asking to speak with Dr. Douglas. Written communication to Dr. Douglas at [facility] nurse station.
[2023-07-24 13:42] VITALS: O2SAT 97
--- NOTE | 2023-07-24 16:05 | CASEMGMT ---
Social Work JOSH spoke with patient's daughter, Jaquelin via phone to address concerns for terminal operations supervisor care. Jaquelin expressed concerns about patient returning home without support. Jaquelin informed JOSH that the patient does not comply with outpatient support or home health care. Jaquelin informed JOSH that the patient has limited family support in [place]. aJquelin states that step son works and has been unable to assist with caring for patient. Jaquelin resides in [place] ([place]) away. Jaquelin informed JOSH that she would like resources for care. Jaquelin inquired about financial support for patient to obtain services for terminal operations supervisor care. Jaquelin is unsure of patient's financial income, but believes the patient only receives SSI. Jaquelin informed JOSH that she assist with paying patient bills. JOSH educated Jaquelin on resources for home health care, private duty care, adult day care, Assisted Living, and a place for mom. Jaquelin informed JOSH that patient is unable to afford to reside in an assisted Living. JOSH informed Jaquelin that a referral to [facility] agency. Patient's daughter requested follow up regarding discharge plans for patient pending progress. JOSH will continue to monitor to plan discharge. LANCE Dover
[2023-07-24 21:37] VITALS: BP 116/65; PULSE 93
[2023-07-24] MEDS: Atorvastatin Calcium 40 MG Tablet PO (21:37)
[2023-07-24] MEDS: traMADol 50 MG Tablet PO (21:37)
[2023-07-24] MEDS: dilTIAZem CD 240 MG Capsule PO (21:37)
[2023-07-24] MEDS: Doxepin Hydrochloride 10 MG Capsule PO (21:38)
[2023-07-24] MEDS: Insulin Glargine-YFGN 100 UNIT/ML Pen 40 UNIT SC (21:43)
[2023-07-24 22:08] LABS: Bedside Glucose 343 mg/dL (74-106)
[2023-07-25] MEDS: Furosemide 40 MG Tablet PO ×2 (05:17→08:02)
[2023-07-25] MEDS: Levothyroxine 50 MCG Tablet PO (05:17)
[2023-07-25] MEDS: Levothyroxine 100 MCG Tablet 200 MCG PO (05:17)
[2023-07-25 05:47] VITALS: BMI 38.1
[2023-07-25 06:41] LABS: Bedside Glucose 152 mg/dL (74-106)
[2023-07-25 06:43] LABS: Anion Gap 5 (5-15); BUN 71 mg/dL (7-18); BUN/Creat Ratio 32.6 RATIO (10-20); Chloride 98 mmol/L (98-107); Creatinine, Serum 2.18 mg/dL (0.55-1.02); EST Glomerular Filtration Rate 23 mL/min (>60); Est Glom Filt Rate - Afr Amer 28 mL/min (>60); Estimated Creatinine Clearance 25.48 ml/min; Glucose 190 mg/dL (74-106); Potassium 5.5 mmol/L (3.5-5.1); Sodium Level 135 mmol/L (136-145)
[2023-07-25 07:10] VITALS: O2SAT 93
[2023-07-25 08:02] VITALS: BP 137/56; PULSE 76
[2023-07-25] MEDS: APIXABAN 2.5 MG TABLET (WCH) PO ×2 (08:02→21:50)
[2023-07-25] MEDS: Senna/Docusate Sodium 1 Tablet PO ×2 (08:02→21:51)
[2023-07-25] MEDS: Metoprolol Tartrate 100 MG Tablet PO ×2 (08:02→21:51)
[2023-07-25] MEDS: predniSONE 10 MG Tablet PO (08:02)
[2023-07-25] MEDS: Glimepiride 1 MG Tablet PO (08:02)
[2023-07-25] MEDS: Iron Polysaccharide Complex 150 MG CAPSULE PO (08:03)
[2023-07-25] MEDS: SACUBITRIL/VALSARTAN 24/26 MG TABLET 1 EACH PO ×2 (08:03→21:51)
[2023-07-25] MEDS: Menthol/Lanolin/Calamine/Znox 113 GM Tube 1 APPLIC TOPICAL ×2 (08:03→21:52)
[2023-07-25] MEDS: Nystatin Powder 15gm Bottle 1 APPLIC TOPICAL ×2 (08:03→21:52)
[2023-07-25] MEDS: Sodium Polystyrene Sulfonate 15 GM/60 ML UDC 30 GM PO (11:05)
[2023-07-25 13:38] VITALS: O2SAT 98
--- NOTE | 2023-07-25 14:07 | MDS.RN ---
Pain interview for mds completed.
[2023-07-25 15:13] VITALS: BP 124/74; PULSE 81; RESP 20; TEMP 36; O2SAT 92
[2023-07-25] MEDS: dilTIAZem CD 240 MG Capsule PO (21:50)
[2023-07-25 21:51] VITALS: BP 133/72; PULSE 98
[2023-07-25] MEDS: Insulin Glargine-YFGN 100 UNIT/ML Pen 40 UNIT SC (21:51)
[2023-07-25] MEDS: Atorvastatin Calcium 40 MG Tablet PO (21:51)
[2023-07-25] MEDS: Doxepin Hydrochloride 10 MG Capsule PO (21:51)
[2023-07-25 22:17] LABS: Bedside Glucose 271 mg/dL (74-106)
[2023-07-26 05:12] VITALS: BMI 38.1
[2023-07-26] MEDS: Levothyroxine 50 MCG Tablet PO (05:52)
[2023-07-26] MEDS: Levothyroxine 100 MCG Tablet 200 MCG PO (05:52)
[2023-07-26 06:16] LABS: Absolute Lymphocyte Count 0.97 X10^3/uL (0.83-4.51); Absolute Neutrophil Count 11.2 X10^3/uL (2.0-7.7); Basophil# 0.08 X10^3/uL; Basophil% 0.6 % (0-1); Eosinophil# 0.15 X10^3/uL; Eosinophils% 1.1 % (0-5); Hematocrit 34.4 % (37-47); Hemoglobin 10.4 g/dL (12.0-15.0); Lymphocyte # 0.97 X10^3/ul (0.83-4.51); Lymphocyte % 7.2 % (19-41); Mean Corp Hgb Conc 30.2 g/dL (32-36); Mean Corpuscular Hgb 28.5 pg (27.0-32.0); Mean Corpuscular Volume 94.2 fL (81-99); Mean Platelet Vol. 10.6 fl (6.2-12.0); Monocyte# 0.84 X10^3/uL; Monocyte% 6.2 % (0-10); NRBC Flagged by Analyzer 0 % (0-5); Neutrophil % 83.2 % (47-70); Platelet Count 361 K/mm3 (150-450); RBC Distribution Width CV 12.9 % (11.6-14.6); RBC Distribution Width SD 44.1 fl (35.1-43.9); Red Blood Count 3.65 M/mm3 (4.2-5.4); White Blood Count 13.5 K/mm3 (4.4-11.0)
[2023-07-26 06:38] LABS: Bedside Glucose 184 mg/dL (74-106)
[2023-07-26 06:38] LABS: Anion Gap 7 (5-15); BUN 61 mg/dL (7-18); BUN/Creat Ratio 31.9 RATIO (10-20); Chloride 97 mmol/L (98-107); Creatinine, Serum 1.91 mg/dL (0.55-1.02); EST Glomerular Filtration Rate 27 mL/min (>60); Est Glom Filt Rate - Afr Amer 32 mL/min (>60); Estimated Creatinine Clearance 29.07 ml/min; Glucose 198 mg/dL (74-106); Potassium 3.6 mmol/L (3.5-5.1); Sodium Level 137 mmol/L (136-145)
[2023-07-26] MEDS: Glimepiride 1 MG Tablet PO (07:47)
[2023-07-26] MEDS: predniSONE 10 MG Tablet PO (07:47)
[2023-07-26] MEDS: Menthol/Lanolin/Calamine/Znox 113 GM Tube 1 APPLIC TOPICAL ×2 (07:47→23:24)
[2023-07-26] MEDS: Nystatin Powder 15gm Bottle 1 APPLIC TOPICAL ×2 (07:48→23:24)
[2023-07-26] MEDS: Senna/Docusate Sodium 1 Tablet PO ×2 (07:48→23:28)
[2023-07-26] MEDS: Iron Polysaccharide Complex 150 MG CAPSULE PO (07:48)
[2023-07-26] MEDS: SACUBITRIL/VALSARTAN 24/26 MG TABLET 1 EACH PO ×2 (07:48→23:31)
[2023-07-26] MEDS: APIXABAN 2.5 MG TABLET (WCH) PO ×2 (07:48→23:29)
[2023-07-26] MEDS: Furosemide 40 MG Tablet PO (07:48)
[2023-07-26 07:51] VITALS: BP 129/67; PULSE 87
[2023-07-26] MEDS: Metoprolol Tartrate 100 MG Tablet PO ×2 (07:51→23:31)
[2023-07-26 08:05] VITALS: O2SAT 98
--- NOTE | 2023-07-26 12:42 | NURSING ---
Mechanical Systems Engineer Note; MDS for 07/25/2023 Complete
--- NOTE | 2023-07-26 12:45 | CASEMGMT ---
Social Work SW completed BIMS () and PHQ9 (0) interviews for MDS assessment on this date. SAIRA Bhakta
--- NOTE | 2023-07-26 14:29 | NURSING ---
continuous pulse ox & Bipap order Dc'd. pt refused use of BIPAP on admit to unit per respiratory therapist. pt sat 99% on 4 liters via NC.
[2023-07-26 16:00] VITALS: BP 137/73; PULSE 84; RESP 20; TEMP 36.5; O2SAT 96
[2023-07-26 17:08] VITALS: O2SAT 100
[2023-07-26 21:24] LABS: Bedside Glucose 214 mg/dL (74-106)
[2023-07-26] MEDS: dilTIAZem CD 240 MG Capsule PO (23:27)
[2023-07-26] MEDS: Atorvastatin Calcium 40 MG Tablet PO (23:29)
[2023-07-26] MEDS: Doxepin Hydrochloride 10 MG Capsule PO (23:30)
[2023-07-26 23:31] VITALS: BP 149/80; PULSE 116
[2023-07-26] MEDS: Insulin Glargine-YFGN 100 UNIT/ML Pen 40 UNIT SC (23:42)
[2023-07-27] MEDS: Levothyroxine 100 MCG Tablet 200 MCG PO (05:47)
[2023-07-27] MEDS: Levothyroxine 50 MCG Tablet PO (05:48)
[2023-07-27 05:55] VITALS: BMI 38.2
[2023-07-27 06:50] LABS: Bedside Glucose 111 mg/dL (74-106)
[2023-07-27 09:11] VITALS: BP 114/63; PULSE 80
[2023-07-27] MEDS: Menthol/Lanolin/Calamine/Znox 113 GM Tube 1 APPLIC TOPICAL ×2 (09:11→22:31)
[2023-07-27] MEDS: Furosemide 40 MG Tablet PO ×2 (09:11→13:40)
[2023-07-27] MEDS: Glimepiride 1 MG Tablet PO (09:11)
[2023-07-27] MEDS: predniSONE 10 MG Tablet PO (09:11)
[2023-07-27] MEDS: Senna/Docusate Sodium 1 Tablet PO ×2 (09:11→22:31)
[2023-07-27] MEDS: APIXABAN 2.5 MG TABLET (WCH) PO ×2 (09:11→22:32)
[2023-07-27] MEDS: Metoprolol Tartrate 100 MG Tablet PO ×2 (09:11→22:33)
[2023-07-27] MEDS: Iron Polysaccharide Complex 150 MG CAPSULE PO (09:11)
[2023-07-27] MEDS: SACUBITRIL/VALSARTAN 24/26 MG TABLET 1 EACH PO ×2 (09:11→22:32)
[2023-07-27] MEDS: Nystatin Powder 15gm Bottle 1 APPLIC TOPICAL ×2 (09:12→22:31)
[2023-07-27] MEDS: Tuberculin,Purif.prot.deriv. 50 TU/ML Vial 0.1 ML ID (10:58)
[2023-07-27 13:04] VITALS: O2SAT 96
[2023-07-27 13:37] VITALS: BP 123/71; PULSE 75; RESP 20; TEMP 36.5; O2SAT 96
[2023-07-27 21:41] LABS: Bedside Glucose 230 mg/dL (74-106)
[2023-07-27] MEDS: Atorvastatin Calcium 40 MG Tablet PO (22:32)
[2023-07-27 22:33] VITALS: BP 123/52; PULSE 101
[2023-07-27] MEDS: dilTIAZem CD 240 MG Capsule PO (22:33)
[2023-07-27] MEDS: Insulin Glargine-YFGN 100 UNIT/ML Pen 40 UNIT SC (22:34)
[2023-07-27] MEDS: Doxepin Hydrochloride 10 MG Capsule PO (22:34)
[2023-07-28] MEDS: Levothyroxine 100 MCG Tablet 200 MCG PO (05:42)
[2023-07-28] MEDS: Furosemide 40 MG Tablet PO ×2 (05:42→14:01)
[2023-07-28] MEDS: Levothyroxine 50 MCG Tablet PO (05:43)
[2023-07-28 05:44] VITALS: BP 121/57; PULSE 62; O2SAT 96
[2023-07-28 05:45] VITALS: BMI 38.0
[2023-07-28 06:17] LABS: Bedside Glucose 112 mg/dL (74-106)
[2023-07-28] MEDS: SACUBITRIL/VALSARTAN 24/26 MG TABLET 1 EACH PO ×2 (09:05→21:58)
[2023-07-28] MEDS: predniSONE 10 MG Tablet PO (09:05)
[2023-07-28 09:06] VITALS: BP 115/66; PULSE 71
[2023-07-28] MEDS: Senna/Docusate Sodium 1 Tablet PO (09:06)
[2023-07-28] MEDS: Metoprolol Tartrate 100 MG Tablet PO ×2 (09:06→21:58)
[2023-07-28] MEDS: Iron Polysaccharide Complex 150 MG CAPSULE PO (09:06)
[2023-07-28] MEDS: APIXABAN 2.5 MG TABLET (WCH) PO ×2 (09:06→22:00)
[2023-07-28] MEDS: Glimepiride 1 MG Tablet PO (09:06)
[2023-07-28] MEDS: Menthol/Lanolin/Calamine/Znox 113 GM Tube 1 APPLIC TOPICAL ×2 (09:07→21:59)
[2023-07-28] MEDS: Nystatin Powder 15gm Bottle 1 APPLIC TOPICAL ×2 (09:07→21:59)
[2023-07-28 15:23] VITALS: BP 118/69; PULSE 84; RESP 18; TEMP 36.5; O2SAT 94
[2023-07-28 21:31] LABS: Bedside Glucose 230 mg/dL (74-106)
[2023-07-28 21:58] VITALS: BP 126/64; PULSE 68
[2023-07-28] MEDS: Doxepin Hydrochloride 10 MG Capsule PO (21:58)
[2023-07-28] MEDS: dilTIAZem CD 240 MG Capsule PO (21:58)
[2023-07-28] MEDS: Atorvastatin Calcium 40 MG Tablet PO (21:58)
[2023-07-28] MEDS: Insulin Glargine-YFGN 100 UNIT/ML Pen 40 UNIT SC (22:00)
[2023-07-28 22:06] VITALS: PULSE 68; RESP 16; O2SAT 96
[2023-07-29 05:40] VITALS: BMI 38.6
[2023-07-29] MEDS: Levothyroxine 100 MCG Tablet 200 MCG PO (06:05)
[2023-07-29] MEDS: Furosemide 40 MG Tablet PO ×2 (06:05→13:40)
[2023-07-29] MEDS: Levothyroxine 50 MCG Tablet PO (06:05)
[2023-07-29 06:34] LABS: Absolute Lymphocyte Count 1.13 X10^3/uL (0.83-4.51); Absolute Neutrophil Count 9.4 X10^3/uL (2.0-7.7); Basophil# 0.07 X10^3/uL; Basophil% 0.6 % (0-1); Eosinophil# 0.22 X10^3/uL; Eosinophils% 1.8 % (0-5); Hematocrit 35.2 % (37-47); Hemoglobin 10.9 g/dL (12.0-15.0); Lymphocyte # 1.13 X10^3/ul (0.83-4.51); Lymphocyte % 9.3 % (19-41); Mean Corpuscular Hgb 29.1 pg (27.0-32.0); Mean Corpuscular Volume 93.9 fL (81-99); Mean Platelet Vol. 10.9 fl (6.2-12.0); Monocyte# 0.99 X10^3/uL; Monocyte% 8.1 % (0-10); NRBC Flagged by Analyzer 0 % (0-5); Neutrophil # 9.42 X10^3/uL (2.7-7.7); Neutrophil % 77.1 % (47-70); Platelet Count 333 K/mm3 (150-450); RBC Distribution Width CV 13.2 % (11.6-14.6); RBC Distribution Width SD 45.2 fl (35.1-43.9); Red Blood Count 3.75 M/mm3 (4.2-5.4); White Blood Count 12.2 K/mm3 (4.4-11.0)
[2023-07-29 06:39] LABS: Bedside Glucose 96 mg/dL (74-106)
[2023-07-29 06:59] LABS: Anion Gap 4 (5-15); BUN 51 mg/dL (7-18); BUN/Creat Ratio 30.7 RATIO (10-20); Calcium,Total 8.8 mg/dL (8.5-10.1); Chloride 101 mmol/L (98-107); Creatinine, Serum 1.66 mg/dL (0.55-1.02); EST Glomerular Filtration Rate 31 mL/min (>60); Est Glom Filt Rate - Afr Amer 38 mL/min (>60); Glucose 113 mg/dL (74-106); Potassium 3.3 mmol/L (3.5-5.1); Sodium Level 138 mmol/L (136-145)
[2023-07-29] MEDS: predniSONE 10 MG Tablet PO (09:46)
[2023-07-29] MEDS: Menthol/Lanolin/Calamine/Znox 113 GM Tube 1 APPLIC TOPICAL ×2 (09:46→21:54)
[2023-07-29] MEDS: Potassium Chloride Oral Tablet 20 MEQ PO ×2 (09:46→17:34)
[2023-07-29] MEDS: Glimepiride 1 MG Tablet PO (09:46)
[2023-07-29 09:47] VITALS: BP 137/54; PULSE 70
[2023-07-29] MEDS: Nystatin Powder 15gm Bottle 1 APPLIC TOPICAL ×2 (09:47→21:54)
[2023-07-29] MEDS: SACUBITRIL/VALSARTAN 24/26 MG TABLET 1 EACH PO ×2 (09:47→21:52)
[2023-07-29] MEDS: Senna/Docusate Sodium 1 Tablet PO ×2 (09:47→21:53)
[2023-07-29] MEDS: APIXABAN 2.5 MG TABLET (WCH) PO ×2 (09:47→21:52)
[2023-07-29] MEDS: Metoprolol Tartrate 100 MG Tablet PO ×2 (09:47→21:54)
[2023-07-29] MEDS: Iron Polysaccharide Complex 150 MG CAPSULE PO (09:47)
[2023-07-29 09:54] VITALS: O2SAT 2
--- NOTE | 2023-07-29 10:47 | WOUNDNOTE ---
wound photo: left chest (old chest tube site)
--- NOTE | 2023-07-29 10:48 | WOUNDNOTE ---
wound photo: right buttock
--- NOTE | 2023-07-29 14:07 | NURSING ---
Patient states she has granddaughter or other family member that will transport her to appt w/ surgeon. Updated dtr. Jaquelin.
[2023-07-29 14:47] VITALS: BP 111/57; PULSE 87; RESP 14; TEMP 36.2; O2SAT 97
[2023-07-29 20:30] VITALS: PULSE 88; O2SAT 96
[2023-07-29 21:31] LABS: Bedside Glucose 181 mg/dL (74-106)
[2023-07-29] MEDS: dilTIAZem CD 240 MG Capsule PO (21:52)
[2023-07-29] MEDS: Insulin Glargine-YFGN 100 UNIT/ML Pen 40 UNIT SC (21:52)
[2023-07-29] MEDS: Atorvastatin Calcium 40 MG Tablet PO (21:52)
[2023-07-29] MEDS: Doxepin Hydrochloride 10 MG Capsule PO (21:53)
[2023-07-29 21:54] VITALS: BP 146/80; PULSE 88
[2023-07-30] VITALS (7 sets, daily range): BP systolic 116–146; BP diastolic 54–80; PULSE 74–88; RESP 18; TEMP 36.2; O2SAT 95–98; BMI 38.6
[2023-07-30] MEDS: Levothyroxine 50 MCG Tablet PO (06:16)
[2023-07-30] MEDS: Furosemide 40 MG Tablet PO ×2 (06:16→08:50)
[2023-07-30] MEDS: Levothyroxine 100 MCG Tablet 200 MCG PO (06:16)
[2023-07-30 06:18] LABS: Anion Gap 7 (5-15); BUN 48 mg/dL (7-18); BUN/Creat Ratio 30.4 RATIO (10-20); Calcium,Total 8.8 mg/dL (8.5-10.1); Chloride 100 mmol/L (98-107); Creatinine, Serum 1.58 mg/dL (0.55-1.02); EST Glomerular Filtration Rate 33 mL/min (>60); Est Glom Filt Rate - Afr Amer 40 mL/min (>60); Estimated Creatinine Clearance 35.41 ml/min; Glucose 98 mg/dL (74-106); Potassium 3.4 mmol/L (3.5-5.1); Sodium Level 141 mmol/L (136-145)
[2023-07-30 06:24] LABS: Bedside Glucose 81 mg/dL (74-106)
[2023-07-30] MEDS: Senna/Docusate Sodium 1 Tablet PO ×2 (08:49→20:29)
[2023-07-30] MEDS: APIXABAN 2.5 MG TABLET (WCH) PO ×2 (08:49→20:30)
[2023-07-30] MEDS: Potassium Chloride Oral Tablet 20 MEQ 40 MEQ PO (08:49)
[2023-07-30] MEDS: Potassium Chloride Oral Tablet 20 MEQ PO ×2 (08:49→16:34)
[2023-07-30] MEDS: Glimepiride 1 MG Tablet PO (08:49)
[2023-07-30] MEDS: Metoprolol Tartrate 100 MG Tablet PO ×2 (08:49→20:29)
[2023-07-30] MEDS: Nystatin Powder 15gm Bottle 1 APPLIC TOPICAL ×2 (08:50→20:30)
[2023-07-30] MEDS: Menthol/Lanolin/Calamine/Znox 113 GM Tube 1 APPLIC TOPICAL ×2 (08:50→20:25)
[2023-07-30] MEDS: SACUBITRIL/VALSARTAN 24/26 MG TABLET 1 EACH PO ×2 (08:50→20:30)
[2023-07-30] MEDS: Iron Polysaccharide Complex 150 MG CAPSULE PO (08:51)
--- NOTE | 2023-07-30 13:51 | PCM.CONS.GEN ---
Assessment & Plan Assessment/Plan (1) Knee pain, left: QUALIFIERS: Chronicity: chronic Qualified Code(s): M25.562 - Pain in left knee; G89.29 - Other chronic pain PLAN: She has a history of chronic left knee pain, likely due to significant OA. I do not have recent imaging. She states she has had multiple steroid injections and a hyaluronic acid injection, which helped for only 2 weeks. We discussed that such a response is not great. We discussed genicular nerve blocks and RFA at length. At this time she would like to hold off on any procedures as she states the pain is actually not that bad at this time. She is taking tylenol PRN for the pain, with good relief. I gave her my card, if she is interested in any additional pain management needs, she is more than welcome to reach out. She states she will do that. HPI Consult Data Date of Consult: 07/30/23 HPI Narrative Reason for Consultation: Left lower extremity pain HPI Narrative: TONJA SÁNCHEZ, is a 83 F who is at the TCU for debility and conditioning in the setting of recurrent left pleural effusions after pneumonia. She has additional PMH of CKD< morbid obesity, COPD, HF, AFIB on AC, and HTN. SHe has been weaned down to 2L O2. I am consulted regarding left leg pain. She states she has chronic long standing left knee pain that she has underwent a number of steroid injections along with hyaluronic acid injections. The most recent injections only last about 2 weeks. She was initially interested in this to help with her recovery, but over the past 1.5 weeks she has had a nice respons with PT and at this time wishes to avoid any procedures. She has been taking tylenol. ORiginally had occasional tramadol, but this was for the incisional pain for the chest tube she states. Overall, she states her pain at this time is not too bad. She does endorse occasional buckling of the knee, but this can be as rare as every 6 months. Otherwise she states she has no significant pain complaints she would like addressed. [facility] Medical History (Updated 07/30/23 @ 13:[address] Ephraim Montana MD) Diabetes Rheumatoid arthritis On home oxygen therapy Low iron Insulin dependent diabetes mellitus Wears glasses Wears dentures Cancer History of steroid therapy History of renal disease High cholesterol Restless legs Injury of back Back pain Dietary restriction Shortness of breath on exertion History of pain when walking History of edema History of echocardiogram History of stress test Cardiology follow-up encounter History of CHF (congestive heart failure) History of atrial fibrillation Hyperlipidemia Overactive bladder Hypothyroidism Diabetes mellitus Hypertension Chronic kidney disease, stage 3b Former smoker Atrial fibrillation Hypertension Chronic anticoagulation Skin cancer, basal cell Actinic keratosis Skin lesion Skin cancer Chronic diastolic (congestive) heart failure Longstanding persistent atrial fibrillation Diastolic dysfunction Secondary pulmonary arterial hypertension Non-rheumatic tricuspid valve insufficiency Stage 2 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 Right hip pain Disc degeneration, lumbar Fatigue UTI (urinary tract infection) Hypoxia Hypersomnia COPD (chronic obstructive pulmonary disease) Obesity Tobacco dependence in remission CKD (chronic kidney disease) stage 3, GFR 30-59 ml/min Breast cancer Essential (primary) hypertension BMI 39.0-39.9,adult Erosion of bladder suspension mesh SHAKIRA (stress urinary incontinence, female) Home Medications ?Medication ?Instructions ?Recorded ?Last Taken ?Type cholecalciferol (vitamin D3) 325 325 mcg PO DAILY supplement 06/14/21 10/08/21 History mcg (13,000 unit) capsule potassium chloride 20 mEq 20 meq PO DAILY supplement 06/14/21 10/08/21 History tablet,extended release levothyroxine 200 mcg tablet 50 mcg PO DAILY thyroid 01/29/22 Unknown History rosuvastatin 20 mg tablet 20 mg PO QHS cholesterol #30 tabs 10/08/22 Unknown Rx albuterol sulfate 90 mcg/actuation 1 inh inhalation Q4H PRN COPD 11/14/22 Unknown History aerosol inhaler mirabegron 50 mg tablet,extended 50 mg PO QHS 11/14/22 Unknown History release 24 hr (Myrbetriq) levothyroxine 50 mcg tablet 50 mcg PO DAILY thyroid 02/14/23 Unknown History finerenone 10 mg tablet (Kerendia) 10 mg PO DAILY 03/22/23 Unknown History ferrous sulfate 325 mg (65 mg 325 mg PO DAILY supplement 04/05/23 Unknown History iron) tablet,delayed release metoprolol tartrate 100 mg tablet 100 mg PO BID BP/heart rate #180 04/05/23 Unknown Rx tabs diltiazem HCl 240 mg 240 mg PO DAILY heart #90 caps 04/26/23 Unknown Rx capsule,extended release 24 hr furosemide 40 mg tablet 40 mg PO BID fluid 04/26/23 Unknown History glimepiride 1 mg tablet 1 mg PO DAILY blood sugar 04/26/23 Unknown History metolazone 2.5 mg tablet 2.5 mg PO .COMPLEX #15 tabs 04/26/23 Unknown Rx sacubitril 24 mg-valsartan 26 mg 1 tab PO BID PATIENT ASSISTANCE 04/26/23 Unknown Rx tablet (Entresto) #180 tabs acetaminophen 500 mg tablet 650 mg PO Q4H PRN Pain Score 1-10 07/19/23 Unknown History apixaban 2.5 mg tablet (Eliquis) 2.5 mg PO DAILY blood thinner 07/19/23 Unknown History furosemide 10 mg/mL injection 40 mg IV BID remove fluid 07/19/23 Unknown History solution insulin degludec 100 unit/mL (3 40 unit subcut QHS blood sugar 07/19/23 Unknown History mL) subcutaneous pen tramadol 50 mg tablet 25 mg PO Q8H PRN PRN pain 07/19/23 Unknown History Allergy/AdvReac Type Severity Reaction Status Date / Time Sulfa (Sulfonamide Allergy PEELING Verified 06/10/23 13:06 Antibiotics) RASH Family History Mother Colon cancer Cancer skin, bladder Daughter Cancer Thyroid Sister CAD (coronary artery disease) Surgical History Hx of colonoscopy Hx of right cataract extraction Hx of left cataract extraction History of excision of lesion Hx of local excision of skin lesion History of cardioversion (03/20/19) History of hysterectomy History of partial mastectomy History of left heart catheterization (05/31/14) Social History household members: none housing: house current occupational status: retired Smoking Status: Former smoker how long ago did patient quit smokin, 2p/day second hand exposure: Yes alcohol intake: current alcohol intake frequency: holidays/special occasions only substance use type: does not use Physical Exam Const alert, oriented x3 and no apparent distress General Appearance: cooperative Resp Resp Narrative: ON 2L NC Extremity Extremity Narrative: SHe has mild tenderess over the left knee. NO significant pain with ROM. General Extremity: edema bilateral Neuro Neuro Narrative: Physiologic strength throughout the lower extremities. 4/5 with hip flexion bilateraly. Psych affect normal Appearance: appropriate Lab / Micro Data 07/29/23 05:24 07/30/23 05:17 Labs: Laboratory Results - last 24 hr 07/29/23 21:11: POC Glucose 181 H 07/30/23 05:17: Sodium 141, Potassium 3.4 L, Chloride 100, Carbon Dioxide 34.0 H, Anion Gap 7, BUN 48 H, Creatinine 1.58 H, Estim Creat Clear Calc 35.41, Est GFR (MDRD) Af Amer 40 L, Est GFR (MDRD) Non-Af 33 L, BUN/Creatinine Ratio 30.4 H, Glucose 98, Calcium 8.8 07/30/23 06:04: POC Glucose 81
[2023-07-30] MEDS: Atorvastatin Calcium 40 MG Tablet PO (20:30)
[2023-07-30] MEDS: dilTIAZem CD 240 MG Capsule PO (20:30)
[2023-07-30] MEDS: Doxepin Hydrochloride 10 MG Capsule PO (20:30)
[2023-07-30] MEDS: Insulin Glargine-YFGN 100 UNIT/ML Pen 40 UNIT SC (21:23)
[2023-07-30 21:48] LABS: Bedside Glucose 180 mg/dL (74-106)
[2023-07-31 05:44] VITALS: BMI 39.1
[2023-07-31] MEDS: Levothyroxine 100 MCG Tablet 200 MCG PO (05:48)
[2023-07-31] MEDS: Levothyroxine 50 MCG Tablet PO (05:48)
[2023-07-31] MEDS: Furosemide 40 MG Tablet PO ×2 (05:48→14:08)
[2023-07-31 05:53] VITALS: BP 131/47; PULSE 83
[2023-07-31 06:25] LABS: Bedside Glucose 103 mg/dL (74-106)
[2023-07-31 06:53] LABS: Anion Gap 5 (5-15); BUN 48 mg/dL (7-18); BUN/Creat Ratio 31.2 RATIO (10-20); Calcium,Total 9.1 mg/dL (8.5-10.1); Chloride 100 mmol/L (98-107); Creatinine, Serum 1.54 mg/dL (0.55-1.02); EST Glomerular Filtration Rate 34 mL/min (>60); Est Glom Filt Rate - Afr Amer 41 mL/min (>60); Estimated Creatinine Clearance 36.57 ml/min; Glucose 103 mg/dL (74-106); Potassium 3.8 mmol/L (3.5-5.1); Sodium Level 137 mmol/L (136-145)
[2023-07-31] MEDS: Menthol/Lanolin/Calamine/Znox 113 GM Tube 1 APPLIC TOPICAL ×2 (08:50→21:34)
[2023-07-31 08:51] VITALS: PULSE 83
[2023-07-31] MEDS: Potassium Chloride Oral Tablet 20 MEQ PO ×2 (08:51→17:05)
[2023-07-31] MEDS: Metoprolol Tartrate 100 MG Tablet PO ×2 (08:51→21:37)
[2023-07-31] MEDS: Senna/Docusate Sodium 1 Tablet PO ×2 (08:51→21:38)
[2023-07-31] MEDS: Glimepiride 1 MG Tablet PO (08:51)
[2023-07-31] MEDS: Iron Polysaccharide Complex 150 MG CAPSULE PO ×2 (08:51→08:52)
[2023-07-31] MEDS: SACUBITRIL/VALSARTAN 24/26 MG TABLET 1 EACH PO ×2 (08:52→21:38)
[2023-07-31] MEDS: Nystatin Powder 15gm Bottle 1 APPLIC TOPICAL ×2 (08:52→21:35)
[2023-07-31] MEDS: APIXABAN 2.5 MG TABLET (WCH) PO ×2 (08:52→21:38)
[2023-07-31 15:08] VITALS: O2SAT 97
[2023-07-31 15:52] VITALS: BP 150/51; PULSE 76; RESP 16; TEMP 36.2; O2SAT 93
[2023-07-31 21:37] VITALS: BP 148/60; PULSE 96
[2023-07-31] MEDS: Atorvastatin Calcium 40 MG Tablet PO (21:38)
[2023-07-31] MEDS: dilTIAZem CD 240 MG Capsule PO (21:38)
[2023-07-31] MEDS: Doxepin Hydrochloride 10 MG Capsule PO (21:38)
[2023-07-31 21:44] VITALS: PULSE 94; RESP 16; O2SAT 96
[2023-07-31 21:46] LABS: Bedside Glucose 176 mg/dL (74-106)
[2023-07-31] MEDS: Insulin Glargine-YFGN 100 UNIT/ML Pen 40 UNIT SC (22:21)
[2023-08-01 05:07] VITALS: BMI 38.9
[2023-08-01] MEDS: Levothyroxine 50 MCG Tablet PO (05:55)
[2023-08-01] MEDS: Furosemide 40 MG Tablet PO ×2 (05:55→13:13)
[2023-08-01] MEDS: Levothyroxine 100 MCG Tablet 200 MCG PO (05:55)
[2023-08-01 06:37] LABS: Bedside Glucose 99 mg/dL (74-106)
[2023-08-01] MEDS: Potassium Chloride Oral Tablet 20 MEQ PO ×2 (08:41→17:16)
[2023-08-01] MEDS: Glimepiride 1 MG Tablet PO (08:41)
[2023-08-01] MEDS: APIXABAN 2.5 MG TABLET (WCH) PO ×2 (08:42→23:02)
[2023-08-01] MEDS: Menthol/Lanolin/Calamine/Znox 113 GM Tube 1 APPLIC TOPICAL ×2 (08:45→23:00)
[2023-08-01] MEDS: Senna/Docusate Sodium 1 Tablet PO (08:46)
[2023-08-01 08:48] VITALS: BP 138/45; PULSE 95
[2023-08-01] MEDS: Metoprolol Tartrate 100 MG Tablet PO ×2 (08:48→23:01)
[2023-08-01] MEDS: Nystatin Powder 15gm Bottle 1 APPLIC TOPICAL ×2 (08:50→23:00)
--- NOTE | 2023-08-01 09:48 | NURSING ---
Patient left with family to go to her cardiothoracic appointment in [place]. Patient to return after appointment. Safe transfer to car. Pt left with O2 tank, 2L NC.
[2023-08-01] MEDS: SACUBITRIL/VALSARTAN 24/26 MG TABLET 1 EACH PO ×2 (13:12→23:00)
[2023-08-01 13:56] VITALS: O2SAT 96
[2023-08-01 15:11] VITALS: BP 103/56; PULSE 67; RESP 18; TEMP 36.4; O2SAT 94
--- NOTE | 2023-08-01 15:32 | NURSING ---
Patient returned to unit around 1230 with son, repositioned in chair for lunch, remains on 2L O2.
--- NOTE | 2023-08-01 19:57 | NURSING ---
Cardiothoracic Surgeon from [facility] requested most recent chest XRay results be faxed to his office. Fax sent, confirmation received. No new orders at this time. No need for follow up per paperwork from appointment.
[2023-08-01 22:01] LABS: Bedside Glucose 201 mg/dL (74-106)
[2023-08-01 23:01] VITALS: BP 123/49; PULSE 87
[2023-08-01] MEDS: Doxepin Hydrochloride 10 MG Capsule PO (23:01)
[2023-08-01] MEDS: Insulin Glargine-YFGN 100 UNIT/ML Pen 40 UNIT SC (23:02)
[2023-08-01] MEDS: Atorvastatin Calcium 40 MG Tablet PO (23:02)
[2023-08-01] MEDS: dilTIAZem CD 240 MG Capsule PO (23:02)
[2023-08-02 05:53] LABS: Absolute Lymphocyte Count 1.03 X10^3/uL (0.83-4.51); Absolute Neutrophil Count 5.9 X10^3/uL (2.0-7.7); Basophil# 0.04 X10^3/uL; Basophil% 0.5 % (0-1); Eosinophil# 0.41 X10^3/uL; Eosinophils% 4.9 % (0-5); Hematocrit 32.1 % (37-47); Hemoglobin 9.8 g/dL (12.0-15.0); Lymphocyte # 1.03 X10^3/ul (0.83-4.51); Lymphocyte % 12.2 % (19-41); Mean Corp Hgb Conc 30.5 g/dL (32-36); Mean Platelet Vol. 11.2 fl (6.2-12.0); Monocyte# 0.86 X10^3/uL; Monocyte% 10.2 % (0-10); NRBC Flagged by Analyzer 0 % (0-5); Neutrophil # 5.92 X10^3/uL (2.7-7.7); Neutrophil % 70.2 % (47-70); Platelet Count 218 K/mm3 (150-450); RBC Distribution Width CV 13.7 % (11.6-14.6); RBC Distribution Width SD 47.3 fl (35.1-43.9); Red Blood Count 3.38 M/mm3 (4.2-5.4); White Blood Count 8.4 K/mm3 (4.4-11.0)
[2023-08-02 06:00] VITALS: BP 115/52; PULSE 85; O2SAT 94; BMI 39.1
[2023-08-02 06:20] LABS: Anion Gap 5 (5-15); BUN 48 mg/dL (7-18); BUN/Creat Ratio 26.1 RATIO (10-20); Chloride 102 mmol/L (98-107); Creatinine, Serum 1.84 mg/dL (0.55-1.02); EST Glomerular Filtration Rate 28 mL/min (>60); Est Glom Filt Rate - Afr Amer 34 mL/min (>60); Estimated Creatinine Clearance 30.59 ml/min; Glucose 119 mg/dL (74-106); Potassium 4.1 mmol/L (3.5-5.1); Sodium Level 139 mmol/L (136-145)
[2023-08-02] MEDS: Levothyroxine 100 MCG Tablet 200 MCG PO (06:51)
[2023-08-02] MEDS: Levothyroxine 50 MCG Tablet PO (06:52)
[2023-08-02] MEDS: Furosemide 40 MG Tablet PO ×2 (06:52→13:40)
[2023-08-02 06:58] LABS: Bedside Glucose 105 mg/dL (74-106)
[2023-08-02] MEDS: Nystatin Powder 15gm Bottle 1 APPLIC TOPICAL ×2 (08:40→21:56)
[2023-08-02] MEDS: Menthol/Lanolin/Calamine/Znox 113 GM Tube 1 APPLIC TOPICAL ×2 (08:40→21:56)
[2023-08-02 08:41] VITALS: BP 127/59; PULSE 85
[2023-08-02] MEDS: Glimepiride 1 MG Tablet PO (08:41)
[2023-08-02] MEDS: Metoprolol Tartrate 100 MG Tablet PO ×2 (08:41→21:52)
[2023-08-02] MEDS: Iron Polysaccharide Complex 150 MG CAPSULE PO (08:41)
[2023-08-02] MEDS: SACUBITRIL/VALSARTAN 24/26 MG TABLET 1 EACH PO ×2 (08:41→21:52)
[2023-08-02] MEDS: APIXABAN 2.5 MG TABLET (WCH) PO ×2 (08:41→21:51)
[2023-08-02] MEDS: Senna/Docusate Sodium 1 Tablet PO ×2 (08:41→21:53)
[2023-08-02] MEDS: Potassium Chloride Oral Tablet 20 MEQ PO ×2 (08:41→17:28)
--- NOTE | 2023-08-02 10:04 | CASEMGMT ---
Addendum entered by Thee Lezama 08/02/23 16:02: SW received update from [facility] Jennifer Martinez that the patient has been accept for home health care service with a SOC on 08/10/2023. Discharge Home with [facility] PT/OT/SN/FUNNEL COATER Addendum entered by Thee Lezama 08/02/23 13:49: SW completed Notice of Medicare Non-Coverage for current [facility] services effective date 08/08/2023; patient anticipates discharge home on 08/09/2023. Patient provided verbal understanding of Medicare discharge and appeal process. Patient provided signature for NOM[facility]; a copy was left at bedside. Patient informed SW that she will discuss transportation with daughter to return home. Addendum entered by Tehe Lezama 08/02/23 13:28: SW met with patient at bedside to discuss transition of care plans. Patient informed SW that she believes that she has improved enough to return home next Tuesday 08/08. SW discussed recommendations for home health care services and provided patient with provider list. Patient informed SW that she believes that she obtained home health care services via [facility] in the past. Patient has no preference for [facility] provider choice. SW submitted referral to [facility] for home health care PT/OT/SN/FUNNEL COATER. Original Note: Social Work SW received notification from FLETCHER Perez and Ángel Henley that the patient is requesting to arrange discharge for next Saturday, 08/08. Therapy is recommending home with home health care for continued rehabilitation; no DME recommended at this time. Patient is currently on 2L at bedside. Patient has home O2 currently receiving 1L. JOSH contacted [facility] and spoke with Raymond who confirmed that the patient is currently renting oxygen equipment in home. Patient will need new home O2 evaluation and order prior to discharge to support increase in oxygen supply. JOSH contacted patient's daughter, Jaquelin Garcia to discuss discharge recommendation. Marleny inquired about current plan and patient progress with therapy. SW provided updates regarding patient progress and recommendation for home health care. Marleny inquired about home health care services- PT/OT/SN recommended at this time. Marleny inquired about [facility]. SW confirmed that referral to [facility] was submitted to support home evaluation and jail care assessment. Marleny informed SW that she will arrange schedule to come to [place] to support patient transition to home next week. Marleny informed SW that the patient would like an inogen. SW informed Marleny that PCP will need to provide documentation to support inogen. SW contacted [facility] and spoke with Raymond regarding inogen request. [facility] has a 1 year waiting list for inogen. SW provided patient with home health care provider list with patient preference of geographical area, medical needs, and insurance network. SW to meet with patient to discuss discharge plans LANCE Dover
--- NOTE | 2023-08-02 14:05 | PCM.DC.SUM ---
Providers Date of Admission: 07/19/23 Primary Care Physician: Dr. Alexy Douglas MD Consultations 07/27/23 04:23 Consult: Onc/Wound/systematic theology professor Routine Comment: Reason for Consult:: Wound to left lateral chest and rt buttock- upper, outer quadrant Comments:: both wounds w/ yellow center and pink edges 07/29/23 16:42 Consult: Pain Management Routine Consulting Provider: Hossein Rocha Reason for Consult: Lumbar radiculopathy. EMERGENT Consult: No MD Notified: Yes Date Notified: 07/30/23 Time Notified: 09:48 Method of Notification: Answering Service Comments:: Spoke with Lolita in the office Reason For Visit: LEFT LUNG SURGERY Diagnosis Discharge Diagnosis (1) Knee pain, left: Status: Acute Code(s): M25.562 - Pain in left knee Qualifiers: Chronicity: chronic Qualified Code(s): M25.562 - Pain in left knee; G89.29 - Other chronic pain Plan 83 year old female with below past medical history significant for recurrent left pleural effusion requiring repeated thoracentesis, hospitalized for thorascopic left pleurodesis, complicated by acute respiratory failure with hypoxia, atrial fibrillation with RVR, acute on chronic HFrEF, admitted to TCU with debility, here for rehabilitation, strengthening, prior to discharge home alone. Debility - PT/OT. Pain - Tylenol 1000mg q6 prn pain (1-5), Tramadol 50mg q6 prn pain (6-10). Bowel - senna/colace 1 tablet bid, Dulcolax 10mg po daily prn. Adult immunization - Administer pneumonia vaccine, covid vaccine, flu vaccine as appropriate. DVT prophylaxis - on Eliquis. COPD - Albuterol 1 puff q4h prn. Atrial fibrillation - Metoprolol 100mg bid, Diltiazem 240mg qhs, Eliquis 2.5mg bid. Hyperlipidemia - Atorvastatin 40mg qhs. Iron deficiency - Ferrex 150mg daily. HFrEF - Metoprolol 100mg bid, Furosemide 40mg iv bidlx, CXR tomorrow. CKD stage 3b - monitor closely with diuresis, BMP tomorrow. Diabetes Mellitus II - Glimepiride 1mg daily, Glargine 40 units qhs. Hypothyroidism - Levothyroxine 250mcg daily. Hypokalemia - KCL 20meq tid. Medications at Discharge Home Medications rosuvastatin 20 mg tablet 20 mg PO QHS cholesterol #30 tabs 10/08/22 mirabegron 50 mg tablet,extended release 24 hr (Myrbetriq) 50 mg PO QHS 11/14/22 finerenone 10 mg tablet (Kerendia) 10 mg PO DAILY 03/22/23 metoprolol tartrate 100 mg tablet 100 mg PO BID BP/heart rate #180 tabs 04/05/23 diltiazem HCl 240 mg capsule,extended release 24 hr 240 mg PO DAILY heart #90 caps 04/26/23 glimepiride 1 mg tablet 1 mg PO DAILY blood sugar 04/26/23 apixaban 2.5 mg tablet (Eliquis) 2.5 mg PO DAILY blood thinner 07/19/23 insulin degludec 100 unit/mL (3 mL) subcutaneous pen 40 unit subcut QHS blood sugar 07/19/23 furosemide 40 mg tablet 40 mg PO BIDLX 30 days #60 tabs 08/02/23 levothyroxine 100 mcg tablet 200 mcg (2 x 100 mcg) PO DAILY@0600 #0 tabs 08/02/23 levothyroxine 50 mcg tablet 50 mcg PO DAILY@0600 #0 tabs 08/02/23 polysaccharide iron complex 150 mg iron capsule (Ferrex) 150 mg PO DAILY 30 days #30 caps 08/02/23 potassium chloride 20 mEq tablet,extended release(part/cryst) 20 meq PO BIDCM 30 days #60 tabs 08/02/23 sacubitril 24 mg-valsartan 26 mg tablet (Entresto) 1 tab PO BID #0 tabs 08/02/23 Hospital Course Operations - (See below.) Procedures None Summary of Care Provided Minutes Spent on Discharge: 35 Hospital Course: 83 year old female with below past medical history significant for recurrent left pleural effusion requiring repeated thoracentesis, hospitalized for thorascopic left pleurodesis, complicated by acute respiratory failure with hypoxia, atrial fibrillation with RVR, acute on chronic HFrEF, admitted to TCU with debility, here for rehabilitation, strengthening, prior to discharge home alone. Discharge home alone, [facility] PT/OT/SN/ORGANIZATIONAL DEVELOPMENT MANAGER. Physical Exam Const alert General Appearance: cooperative HEENT normocephalic Eyes PERRL and EOMs intact bilaterally Neck supple, no JVD and no carotid bruits Resp normal respiratory effort, normal air movement and clear to auscultation bilaterally Cardio regular rate and regular rhythm GI normal to inspection, nondistended, normoactive bowel sounds, non-tender and non-distended Extremity normal capillary refill General Extremity: Negative for edema Skin no rashes or lesions noted General Skin Exam: no breakdown Psych affect normal Appearance: appropriate Weight / BMI Weight Weight: 117.027 kg Body Mass Index (BMI) 39.1 ABG / Lab / Microbiology Data 08/02/23 05:10 08/02/23 05:10 Laboratory: Laboratory Results - last 24 hr 08/01/23 21:35: POC Glucose 201 H 08/02/23 05:10: WBC 8.4, RBC 3.38 L, Hgb 9.8 L, Hct 32.1 L, MCV 95.0, MCH 29.0, MCHC 30.5 L, RDW Std Deviation 47.3 H, RDW Coeff of Sudha 13.7, Plt Count 218, MPV 11.2, Immature Gran % (Auto) 2.000 H, Neut % (Auto) 70.2 H, Lymph % (Auto) 12.2 L, [place] % (Auto) 10.2 H, Eos % (Auto) 4.9, Baso % (Auto) 0.5, Absolute Neuts (auto) 5.9, Absolute Lymphs (auto) 1.03, Nucleated RBC % 0, Sodium 139, Potassium 4.1, Chloride 102, Carbon Dioxide 32.0, Anion Gap 5, BUN 48 H, Creatinine 1.84 H, Estim Creat Clear Calc 30.59, Est GFR (MDRD) Af Amer 34 L, Est GFR (MDRD) Non-Af 28 L, BUN/Creatinine Ratio 26.1 H, Glucose 119 H, Calcium 9.0 08/02/23 06:37: POC Glucose 105 D/C Instructions Discharge Diet: No restrictions Discharge Activity: Return to Normal Activity, May Shower and Use Walker Weight Bearing Status: Weight bearing as tolerated Call your doctor if you observe: Fever of 101 or Higher, Inability to urinate, Inability to have a bowel movement, Shortness of breath, Dizziness, Fainting spells, Swelling in the ankles, Chest pain and Uncontrolled pain Additional Instructions: Discharge home alone, [facility] PT/OT/SN/ORGANIZATIONAL DEVELOPMENT MANAGER. Please Follow Up With: Maria Elena WILLSON When: As scheduled. Meaningful Use Info Meaningful Use Meaningful Use Diagnoses (Choose all that apply): None applicable Ischemic Stroke Statin Dosing Therapy Reference: STATIN DOSE THERAPY REFERENCE: * Patients > 75 years receive moderate or high dose statin therapy. * Patients 75 years or YOUNGER should receive HIGH intensity statin dose unless contraindicated. You will be required to document reason for non-treatment if statin daily dose does not meet guidelines. HIGH DOSE STATIN THERAPY DAILY Atorvastatin > than or = to 40 mg Rosuvastatin > than or = to 20 mg Amlodipine + Atorvastatin > than or = to 2.5/40 mg Ezetimibe + Simvastatin 10/80 mg Simvastatin 80mg Discharge Plan Admission Admit Date/Time: 07/19/23 13:35 Primary Reason for Your Visit: Debility. Attending Provider: Alexy Douglas Chi Primary Care Provider: Alexy Douglas Chi Consulting Providers: Hossein Rocha Instructions Additional Instructions / Restrictions: Discharge home alone, [facility] PT/OT/SN/ORGANIZATIONAL DEVELOPMENT MANAGER. Discharge Orders/Prescriptions Prescriptions: New furosemide 40 mg Tablet 40 mg PO BIDLX 30 Days Qty: 60 0RF polysaccharide iron complex [Ferrex 150] 150 mg iron Capsule 150 mg PO DAILY 30 Days Qty: 30 0RF levothyroxine 100 mcg Tablet 200 mcg PO DAILY@0600 Qty: 0 0RF potassium chloride 20 mEq Tablet,Er Particles/Crystals 20 meq PO BIDCM 30 Days Qty: 60 0RF levothyroxine 50 mcg Tablet 50 mcg PO DAILY@0600 Qty: 0 0RF Entresto 24-26 mg Tablet 1 tab PO BID Qty: 0 0RF Continued Kerendia 10 mg tablet 10 mg PO DAILY metoprolol tartrate 100 mg tablet 100 mg PO BID Qty: 180 3RF glimepiride 1 mg tablet 1 mg PO DAILY diltiazem HCl 240 mg capsule,extended release 24hr 240 mg PO DAILY Qty: 90 3RF Myrbetriq 50 mg tablet extended release 24 hr 50 mg PO QHS Eliquis 2.5 mg tablet 2.5 mg PO DAILY insulin degludec 100 unit/mL (3 mL) insulin pen 40 unit SC QHS rosuvastatin 20 mg tablet 20 mg PO QHS Qty: 30 11RF Discontinued levothyroxine 200 mcg tablet 50 mcg PO DAILY cholecalciferol (vitamin D3) 325 mcg (13,000 unit) capsule 325 mcg PO DAILY potassium chloride 20 mEq tablet extended release 20 meq PO DAILY ferrous sulfate 325 mg (65 mg iron) tablet,delayed release (DR/EC) 325 mg PO DAILY furosemide 40 mg tablet 40 mg PO BID metolazone 2.5 mg tablet 2.5 mg PO .COMPLEX Qty: 15 0RF Rx Instructions: 2.5 mg orally once a week; albuterol sulfate 90 mcg/actuation HFA aerosol inhaler 1 inh INHALATION Q4H PRN (Reason: COPD) Patient Comments: Inhale 2 puffs by mouth every 4 hours. levothyroxine 50 mcg tablet 50 mcg PO DAILY Patient Comments: TAKE 1 TABLET BY MOUTH DAILY furosemide 10 mg/mL solution 40 mg IV BID tramadol 50 mg tablet 25 mg PO Q8H PRN PRN (Reason: pain) Patient Comments: for pain scale 7-10 acetaminophen 500 mg Tablet 650 mg PO Q4H PRN (Reason: Pain Score 1-10) Entresto 24-26 mg tablet 1 tab PO BID Qty: 180 4RF Referrals / Follow Up: Alexy Douglas Chi, MD [Primary Care Provider] - Disposition Disposition (needs filled in before D/C Order can be placed): Home Health Service
[2023-08-02 16:00] VITALS: BP 115/54; PULSE 66; RESP 18; TEMP 36.3; O2SAT 99
[2023-08-02 16:06] VITALS: O2SAT 99
[2023-08-02 21:38] LABS: Bedside Glucose 137 mg/dL (74-106)
[2023-08-02] MEDS: Insulin Glargine-YFGN 100 UNIT/ML Pen 40 UNIT SC (21:50)
[2023-08-02] MEDS: dilTIAZem CD 240 MG Capsule PO (21:51)
[2023-08-02 21:52] VITALS: BP 119/61; PULSE 94
[2023-08-02] MEDS: Atorvastatin Calcium 40 MG Tablet PO (21:52)
[2023-08-02] MEDS: Doxepin Hydrochloride 10 MG Capsule PO (21:53)
[2023-08-03 04:49] VITALS: BMI 39.5
[2023-08-03] MEDS: Levothyroxine 100 MCG Tablet 200 MCG PO (05:27)
[2023-08-03] MEDS: Levothyroxine 50 MCG Tablet PO (05:28)
[2023-08-03] MEDS: Furosemide 40 MG Tablet PO ×2 (05:28→13:36)
[2023-08-03 06:34] LABS: Bedside Glucose 75 mg/dL (74-106)
[2023-08-03 08:00] VITALS: O2SAT 95
[2023-08-03] MEDS: Glimepiride 1 MG Tablet PO (10:01)
[2023-08-03 10:02] VITALS: PULSE 78
[2023-08-03] MEDS: Metoprolol Tartrate 100 MG Tablet PO ×2 (10:02→23:00)
[2023-08-03] MEDS: SACUBITRIL/VALSARTAN 24/26 MG TABLET 1 EACH PO ×2 (10:02→23:00)
[2023-08-03] MEDS: Potassium Chloride Oral Tablet 20 MEQ PO ×2 (10:02→17:41)
[2023-08-03] MEDS: Senna/Docusate Sodium 1 Tablet PO ×2 (10:02→23:02)
[2023-08-03] MEDS: Iron Polysaccharide Complex 150 MG CAPSULE PO (10:03)
[2023-08-03] MEDS: Nystatin Powder 15gm Bottle 1 APPLIC TOPICAL ×2 (10:03→23:09)
[2023-08-03] MEDS: APIXABAN 2.5 MG TABLET (WCH) PO ×2 (10:03→23:02)
[2023-08-03] MEDS: Menthol/Lanolin/Calamine/Znox 113 GM Tube 1 APPLIC TOPICAL ×2 (10:06→22:59)
[2023-08-03 13:48] VITALS: BP 101/60; PULSE 84; RESP 16; TEMP 36.3; O2SAT 97
[2023-08-03] MEDS: Doxepin Hydrochloride 10 MG Capsule PO (22:59)
[2023-08-03 23:00] VITALS: BP 129/66; PULSE 85
[2023-08-03] MEDS: Atorvastatin Calcium 40 MG Tablet PO (23:01)
[2023-08-03] MEDS: Insulin Glargine-YFGN 100 UNIT/ML Pen 40 UNIT SC (23:03)
[2023-08-03] MEDS: dilTIAZem CD 240 MG Capsule PO (23:03)
[2023-08-03 23:17] LABS: Bedside Glucose 122 mg/dL (74-106)
[2023-08-04 05:19] VITALS: BMI 39.1
[2023-08-04 06:00] VITALS: BP 131/65; PULSE 88
[2023-08-04 06:33] LABS: Bedside Glucose 81 mg/dL (74-106)
[2023-08-04] MEDS: Furosemide 40 MG Tablet PO ×2 (06:43→13:59)
[2023-08-04] MEDS: Levothyroxine 50 MCG Tablet PO (06:44)
[2023-08-04] MEDS: Levothyroxine 100 MCG Tablet 200 MCG PO (06:44)
[2023-08-04 07:42] VITALS: O2SAT 95
[2023-08-04] MEDS: Iron Polysaccharide Complex 150 MG CAPSULE PO (08:32)
[2023-08-04 08:33] VITALS: BP 104/53; PULSE 95
[2023-08-04] MEDS: Senna/Docusate Sodium 1 Tablet PO ×2 (08:33→22:29)
[2023-08-04] MEDS: SACUBITRIL/VALSARTAN 24/26 MG TABLET 1 EACH PO ×2 (08:33→22:28)
[2023-08-04] MEDS: Glimepiride 1 MG Tablet PO (08:33)
[2023-08-04] MEDS: APIXABAN 2.5 MG TABLET (WCH) PO ×2 (08:33→22:28)
[2023-08-04] MEDS: Metoprolol Tartrate 100 MG Tablet PO ×2 (08:33→22:31)
[2023-08-04] MEDS: Potassium Chloride Oral Tablet 20 MEQ PO ×2 (08:33→17:45)
[2023-08-04] MEDS: Nystatin Powder 15gm Bottle 1 APPLIC TOPICAL ×2 (08:38→22:29)
[2023-08-04] MEDS: Menthol/Lanolin/Calamine/Znox 113 GM Tube 1 APPLIC TOPICAL ×2 (08:39→22:30)
[2023-08-04 15:29] VITALS: PULSE 74; RESP 16
[2023-08-04 15:37] VITALS: BP 120/58; PULSE 78; RESP 23; TEMP 36.7; O2SAT 94
[2023-08-04 22:01] LABS: Bedside Glucose 178 mg/dL (74-106)
[2023-08-04] MEDS: Doxepin Hydrochloride 10 MG Capsule PO (22:27)
[2023-08-04] MEDS: Atorvastatin Calcium 40 MG Tablet PO (22:28)
[2023-08-04] MEDS: dilTIAZem CD 240 MG Capsule PO (22:28)
[2023-08-04 22:31] VITALS: BP 147/59; PULSE 84
[2023-08-04] MEDS: Insulin Glargine-YFGN 100 UNIT/ML Pen 30 UNIT SC (22:34)
[2023-08-05] MEDS: Levothyroxine 100 MCG Tablet 200 MCG PO (05:55)
[2023-08-05] MEDS: Levothyroxine 50 MCG Tablet PO (05:55)
[2023-08-05] MEDS: Furosemide 40 MG Tablet PO ×2 (05:56→13:49)
[2023-08-05 06:00] VITALS: BMI 39.3
[2023-08-05 06:46] LABS: Bedside Glucose 74 mg/dL (74-106)
[2023-08-05] MEDS: Potassium Chloride Oral Tablet 20 MEQ PO ×2 (07:55→17:06)
[2023-08-05] MEDS: Glimepiride 1 MG Tablet PO (08:21)
[2023-08-05 08:58] VITALS: O2SAT 94
[2023-08-05] MEDS: SACUBITRIL/VALSARTAN 49-51 MG TABLET 1 EACH PO ×2 (09:48→22:17)
[2023-08-05] MEDS: Iron Polysaccharide Complex 150 MG CAPSULE PO (09:48)
[2023-08-05 09:49] VITALS: PULSE 81
[2023-08-05] MEDS: APIXABAN 2.5 MG TABLET (WCH) PO ×2 (09:49→22:17)
[2023-08-05] MEDS: Senna/Docusate Sodium 1 Tablet PO ×2 (09:49→22:20)
[2023-08-05] MEDS: Metoprolol Tartrate 100 MG Tablet PO ×2 (09:49→22:18)
[2023-08-05] MEDS: Menthol/Lanolin/Calamine/Znox 113 GM Tube 1 APPLIC TOPICAL ×2 (09:50→22:32)
[2023-08-05] MEDS: Nystatin Powder 15gm Bottle 1 APPLIC TOPICAL ×2 (09:50→22:19)
[2023-08-05 13:56] VITALS: BP 124/64; PULSE 82; RESP 16; TEMP 36.2; O2SAT 95
--- NOTE | 2023-08-05 17:25 | CASEMGMT ---
Social Work SW received a call from patient's daughter, Marleny to confirm discharge. JOSH spoke with Marleny and reviewed current discharge plans for home health care via [facility] PT/OT/SN/UX DEVELOPER DESIGNER with SOC on 08/10/2023. Referral was submitted to [facility] on previous encounter to support terminal manager care in home assessment. Patient's daughter informed JOSH that she will be providing transportation for patient to discharge on 08/09/2023 to home. LANCE Dover
[2023-08-05 21:36] LABS: Bedside Glucose 191 mg/dL (74-106)
[2023-08-05] MEDS: dilTIAZem CD 240 MG Capsule PO (22:17)
[2023-08-05 22:18] VITALS: BP 126/60; PULSE 80
[2023-08-05] MEDS: Atorvastatin Calcium 40 MG Tablet PO (22:18)
[2023-08-05] MEDS: Doxepin Hydrochloride 10 MG Capsule PO (22:20)
[2023-08-05] MEDS: Insulin Glargine-YFGN 100 UNIT/ML Pen 20 UNIT SC (22:23)
[2023-08-06] MEDS: Furosemide 40 MG Tablet PO ×2 (05:07→13:46)
[2023-08-06] MEDS: Levothyroxine 50 MCG Tablet PO (05:07)
[2023-08-06] MEDS: Levothyroxine 100 MCG Tablet 200 MCG PO (05:07)
[2023-08-06 05:48] VITALS: BMI 39.2
[2023-08-06 06:29] LABS: Bedside Glucose 111 mg/dL (74-106)
[2023-08-06 06:51] VITALS: O2SAT 91
[2023-08-06 07:49] VITALS: BP 117/72; PULSE 72; RESP 18; TEMP 36.4; O2SAT 95
[2023-08-06] MEDS: APIXABAN 2.5 MG TABLET (WCH) PO ×2 (07:49→22:29)
[2023-08-06 07:50] VITALS: PULSE 72
[2023-08-06] MEDS: Iron Polysaccharide Complex 150 MG CAPSULE PO (07:50)
[2023-08-06] MEDS: SACUBITRIL/VALSARTAN 49-51 MG TABLET 1 EACH PO ×2 (07:50→22:30)
[2023-08-06] MEDS: Nystatin Powder 15gm Bottle 1 APPLIC TOPICAL ×2 (07:50→22:31)
[2023-08-06] MEDS: Potassium Chloride Oral Tablet 20 MEQ PO ×2 (07:50→17:21)
[2023-08-06] MEDS: Senna/Docusate Sodium 1 Tablet PO ×2 (07:50→22:30)
[2023-08-06] MEDS: Glimepiride 1 MG Tablet PO (07:50)
[2023-08-06] MEDS: Metoprolol Tartrate 100 MG Tablet PO ×2 (07:50→22:31)
[2023-08-06] MEDS: Menthol/Lanolin/Calamine/Znox 113 GM Tube 1 APPLIC TOPICAL ×2 (07:51→22:26)
[2023-08-06 11:59] VITALS: O2SAT 97
--- NOTE | 2023-08-06 14:12 | NURSING ---
Spoke with patient and dtr about setting up a neurology appt for after patient DC's from TCU. They are wanting to set up appt w/ Dr. Fabienne Lyle. Left note with Dr. Douglas, referral needed to schedule appt.
[2023-08-06 21:27] VITALS: PULSE 80; O2SAT 93
[2023-08-06 21:27] LABS: Bedside Glucose 206 mg/dL (74-106)
[2023-08-06] MEDS: Insulin Glargine-YFGN 100 UNIT/ML Pen 20 UNIT SC (22:27)
[2023-08-06] MEDS: dilTIAZem CD 240 MG Capsule PO (22:28)
[2023-08-06] MEDS: Doxepin Hydrochloride 10 MG Capsule PO (22:30)
[2023-08-06] MEDS: Atorvastatin Calcium 40 MG Tablet PO (22:30)
[2023-08-06 22:31] VITALS: BP 128/55; PULSE 57
[2023-08-07] VITALS (8 sets, daily range): BP systolic 114–140; BP diastolic 56–76; PULSE 86–95; RESP 18; TEMP 36.6; O2SAT 85–97; BMI 39.7
--- NOTE | 2023-08-07 02:49 | CPS ---
RT verified with RN that overnight pulse ox. trend was to be performed on the night of 08/06/23. Patient was started on trend on room air 93% 08/06/23 @2127.
[2023-08-07] MEDS: Furosemide 40 MG Tablet PO ×2 (05:49→13:38)
[2023-08-07] MEDS: Levothyroxine 100 MCG Tablet 200 MCG PO (05:49)
[2023-08-07] MEDS: Levothyroxine 50 MCG Tablet PO (05:49)
[2023-08-07 06:34] LABS: Bedside Glucose 129 mg/dL (74-106)
[2023-08-07] MEDS: Nystatin Powder 15gm Bottle 1 APPLIC TOPICAL ×2 (07:56→22:08)
[2023-08-07] MEDS: Menthol/Lanolin/Calamine/Znox 113 GM Tube 1 APPLIC TOPICAL ×2 (07:57→22:07)
[2023-08-07] MEDS: APIXABAN 2.5 MG TABLET (WCH) PO ×2 (08:00→22:02)
[2023-08-07] MEDS: SACUBITRIL/VALSARTAN 49-51 MG TABLET 1 EACH PO ×2 (08:00→22:22)
[2023-08-07] MEDS: Iron Polysaccharide Complex 150 MG CAPSULE PO (08:00)
[2023-08-07] MEDS: Senna/Docusate Sodium 1 Tablet PO (08:00)
[2023-08-07] MEDS: Metoprolol Tartrate 100 MG Tablet PO ×2 (08:00→22:02)
[2023-08-07] MEDS: Glimepiride 1 MG Tablet PO (08:00)
[2023-08-07] MEDS: Potassium Chloride Oral Tablet 20 MEQ PO ×2 (08:00→17:10)
--- NOTE | 2023-08-07 13:58 | CASEMGMT ---
Social Work Home O2 received a call from [facility]. Bethany Albinr [phone] informing that the patient has contacted provider requesting to switch home oxygen provider to obtain portable oxygen on admission. JOSH spoke with Bethnay who informed that she received an order from Physician Dr. Douglas. Patient confirmed with that she would like to switch from [facility] to [facility] for services. Patient was notified that she will need to return [employer] equipment. [facility] is requesting for home O2 evaluation and order form to be completed for patient referral to be reviewed for [facility] to establish services. Patient will require Home O2 evaluation 24-48hr prior to discharge. notified nursing. Patient has anticipated discharge on 08/09/2023. LANCE Dover
[2023-08-07 21:41] LABS: Bedside Glucose 145 mg/dL (74-106)
[2023-08-07] MEDS: dilTIAZem CD 240 MG Capsule PO (22:01)
[2023-08-07] MEDS: Atorvastatin Calcium 40 MG Tablet PO (22:02)
[2023-08-07] MEDS: Doxepin Hydrochloride 10 MG Capsule PO (22:02)
[2023-08-07] MEDS: Insulin Glargine-YFGN 100 UNIT/ML Pen 20 UNIT SC (22:03)
[2023-08-07] MEDS: traMADol 50 MG Tablet PO (22:03)
[2023-08-08 01:57] VITALS: O2SAT 93
--- NOTE | 2023-08-08 02:03 | CPS ---
[0157] Pt. placed on 2L NC at this time. Nurse called in regards to pt.'s SpO2 dropping below 80%.
[2023-08-08] MEDS: Levothyroxine 50 MCG Tablet PO (05:07)
[2023-08-08] MEDS: Levothyroxine 100 MCG Tablet 200 MCG PO (05:07)
[2023-08-08] MEDS: Furosemide 40 MG Tablet PO ×2 (05:07→15:23)
[2023-08-08 05:25] VITALS: BMI 39.3
[2023-08-08 06:24] LABS: Bedside Glucose 117 mg/dL (74-106)
--- NOTE | 2023-08-08 08:45 | CASEMGMT ---
Addendum entered by Thee Lezama 08/08/23 11:58: SW received notification from [facility]; a patient screening has been completed and she will be contacted for an assessment in the next week to ten days. Original Note: Social Work SW received completed home oxygen order and Home O2 evaluation for [place]. SW contacted Bethany Jose to discuss home O2 order. SW submitted order and supporting clinicals via [facility]. Patient was notified of order submission. LANCE Dover
[2023-08-08 09:51] VITALS: BP 123/63; PULSE 101; RESP 18; TEMP 36; O2SAT 97
[2023-08-08] MEDS: Potassium Chloride Oral Tablet 20 MEQ PO ×2 (09:53→18:16)
[2023-08-08] MEDS: Glimepiride 1 MG Tablet PO (09:53)
[2023-08-08] MEDS: APIXABAN 2.5 MG TABLET (WCH) PO ×2 (09:54→22:58)
[2023-08-08] MEDS: Menthol/Lanolin/Calamine/Znox 113 GM Tube 1 APPLIC TOPICAL ×2 (09:54→22:55)
[2023-08-08 09:55] VITALS: PULSE 104
[2023-08-08] MEDS: Nystatin Powder 15gm Bottle 1 APPLIC TOPICAL ×2 (09:55→23:00)
[2023-08-08] MEDS: SACUBITRIL/VALSARTAN 49-51 MG TABLET 1 EACH PO ×2 (09:55→22:59)
[2023-08-08] MEDS: Metoprolol Tartrate 100 MG Tablet PO ×2 (09:55→22:59)
[2023-08-08] MEDS: Iron Polysaccharide Complex 150 MG CAPSULE PO (09:55)
[2023-08-08 15:22] VITALS: BP 119/53
--- NOTE | 2023-08-08 18:30 | CASEMGMT ---
Social Work SW met with patient at bedside to complete discharge MDS. Patient BIM () and PhQ-2 () SW reviewed discharge plans with patient. Patient will need to follow up with [employer] to return O2 equipment. James to deliver Home O2 at bedside. LANCE Dover
[2023-08-08 21:37] LABS: Bedside Glucose 184 mg/dL (74-106)
[2023-08-08 22:50] VITALS: BP 122/59; PULSE 83
[2023-08-08] MEDS: dilTIAZem CD 240 MG Capsule PO (22:57)
[2023-08-08 22:59] VITALS: BP 122/59; PULSE 83
[2023-08-08] MEDS: Atorvastatin Calcium 40 MG Tablet PO (22:59)
[2023-08-08] MEDS: Senna/Docusate Sodium 1 Tablet PO (23:01)
[2023-08-08] MEDS: Insulin Glargine-YFGN 100 UNIT/ML Pen 20 UNIT SC (23:02)
[2023-08-08] MEDS: Doxepin Hydrochloride 10 MG Capsule PO (23:02)
[2023-08-09] MEDS: Levothyroxine 50 MCG Tablet PO (05:46)
[2023-08-09] MEDS: Levothyroxine 100 MCG Tablet 200 MCG PO (05:46)
[2023-08-09] MEDS: Furosemide 40 MG Tablet PO (05:46)
[2023-08-09 06:00] VITALS: BMI 40.4
[2023-08-09 06:05] LABS: Absolute Lymphocyte Count 1.03 X10^3/uL (0.83-4.51); Absolute Neutrophil Count 5.5 X10^3/uL (2.0-7.7); Basophil# 0.03 X10^3/uL; Basophil% 0.4 % (0-1); Eosinophil# 0.47 X10^3/uL; Hematocrit 31.8 % (37-47); Hemoglobin 9.8 g/dL (12.0-15.0); Lymphocyte # 1.03 X10^3/ul (0.83-4.51); Lymphocyte % 13.1 % (19-41); Mean Corp Hgb Conc 30.8 g/dL (32-36); Mean Corpuscular Hgb 28.7 pg (27.0-32.0); Mean Platelet Vol. 10.2 fl (6.2-12.0); Monocyte# 0.69 X10^3/uL; Monocyte% 8.8 % (0-10); NRBC Flagged by Analyzer 0 % (0-5); Neutrophil # 5.52 X10^3/uL (2.7-7.7); Neutrophil % 70.4 % (47-70); Platelet Count 233 K/mm3 (150-450); RBC Distribution Width CV 13.9 % (11.6-14.6); RBC Distribution Width SD 46.9 fl (35.1-43.9); Red Blood Count 3.42 M/mm3 (4.2-5.4); White Blood Count 7.8 K/mm3 (4.4-11.0)
[2023-08-09 06:19] LABS: Anion Gap 6 (5-15); BUN 28 mg/dL (7-18); BUN/Creat Ratio 17.2 RATIO (10-20); Chloride 99 mmol/L (98-107); Creatinine, Serum 1.63 mg/dL (0.55-1.02); EST Glomerular Filtration Rate 32 mL/min (>60); Est Glom Filt Rate - Afr Amer 39 mL/min (>60); Estimated Creatinine Clearance 34.65 ml/min; Glucose 109 mg/dL (74-106); Potassium 4.1 mmol/L (3.5-5.1); Sodium Level 136 mmol/L (136-145)
[2023-08-09 06:21] VITALS: PULSE 78
[2023-08-09 06:36] LABS: Bedside Glucose 107 mg/dL (74-106)
[2023-08-09 06:47] VITALS: O2SAT 95
[2023-08-09] MEDS: Glimepiride 1 MG Tablet PO (09:58)
[2023-08-09] MEDS: Potassium Chloride Oral Tablet 20 MEQ PO (09:58)
[2023-08-09 09:59] VITALS: BP 125/67; PULSE 94
[2023-08-09] MEDS: APIXABAN 2.5 MG TABLET (WCH) PO (09:59)
[2023-08-09] MEDS: SACUBITRIL/VALSARTAN 49-51 MG TABLET 1 EACH PO (09:59)
[2023-08-09] MEDS: Iron Polysaccharide Complex 150 MG CAPSULE PO (09:59)
[2023-08-09] MEDS: Metoprolol Tartrate 100 MG Tablet PO (09:59)
--- NOTE | 2023-08-09 10:01 | CASEMGMT ---
Social Work SW contacted [facility] to confirm receipt of orders and confirm delivery. JOSH spoke with Bethany who informed JOSH that she received confirmation that the patient's portable oxygen will be delivered prior to discharge. Patient is awaiting delivery of portable oxygen and daughter, Marleny arrival for transportation to home. Patient anticipates [facility] home health care with PT/OT/SN/OSTOMY NURSE and [facility] for Home O2. LANCE Dover
[2023-08-09] MEDS: Menthol/Lanolin/Calamine/Znox 113 GM Tube 1 APPLIC TOPICAL (10:03)
[2023-08-09] MEDS: Nystatin Powder 15gm Bottle 1 APPLIC TOPICAL (10:03)
[2023-08-09 11:54] VITALS: BP 125/67; PULSE 59; RESP 20; TEMP 36.5; O2SAT 97
== END 2023-08-09 12:00 | disposition home health service (06) | DRG 949 ==
PROVIDERS: Admitting Provider Family Medicine Geriatric Medicine; PCP Family Medicine Geriatric Medicine; Referring Provider Family Medicine Geriatric Medicine; Visit Provider Family Medicine Geriatric Medicine
DX: Z48.813 Encounter for surgical aftercare following surgery on the respiratory system (principal); J96.01 Acute respiratory failure with hypoxia; I50.43 Acute on chronic combined systolic (congestive) and diastolic (congestive) heart failure; I13.0 Hypertensive heart and chronic kidney disease with heart failure and stage 1 through stage 4 chronic kidney disease, or unspecified chronic kidney disease; I48.11 Longstanding persistent atrial fibrillation; J91.8 Pleural effusion in other conditions classified elsewhere; E11.22 Type 2 diabetes mellitus with diabetic chronic kidney disease; E66.01 Morbid (severe) obesity due to excess calories; N18.32 Chronic kidney disease, stage 3b; Z79.4 Long term (current) use of insulin; J44.89 Other specified chronic obstructive pulmonary disease; E03.9 Hypothyroidism, unspecified; H35.30 Unspecified macular degeneration; E61.1 Iron deficiency; E78.00 Pure hypercholesterolemia, unspecified; E87.6 Hypokalemia; M25.562 Pain in left knee; Z79.84 Long term (current) use of oral hypoglycemic drugs; Z87.891 Personal history of nicotine dependence; Z68.39 Body mass index [BMI] 39.0-39.9, adult; Z79.899 Other long term (current) drug therapy; Z79.890 Hormone replacement therapy; G89.29 Other chronic pain; Z99.81 Dependence on supplemental oxygen; Z87.01 Personal history of pneumonia (recurrent)
CPT/HCPCS: 36415; 71046; 80048; 80061; 82962; 83880; 85025; 93005; 94762; 97110; 97116; 97129; 97163; 97166; 97530; 97535; 97802; A4216; J1940

== ENCOUNTER 2023-08-13 15:40 | Outpatient (CLI) | payer MEDICARE, OTHER, SELFPAY ==
[2023-08-13 17:55] LABS: Absolute Lymphocyte Count 0.88 X10^3/uL (0.83-4.51); Absolute Neutrophil Count 6.4 X10^3/uL (2.0-7.7); Basophil# 0.04 X10^3/uL; Basophil% 0.5 % (0-1); Eosinophil# 0.46 X10^3/uL; Eosinophils% 5.5 % (0-5); Hematocrit 31.9 % (37-47); Hemoglobin 9.6 g/dL (12.0-15.0); Lymphocyte # 0.88 X10^3/ul (0.83-4.51); Lymphocyte % 10.4 % (19-41); Mean Corp Hgb Conc 30.1 g/dL (32-36); Mean Corpuscular Hgb 28.6 pg (27.0-32.0); Mean Corpuscular Volume 94.9 fL (81-99); Mean Platelet Vol. 10.9 fl (6.2-12.0); Monocyte# 0.59 X10^3/uL; NRBC Flagged by Analyzer 0 % (0-5); Neutrophil # 6.39 X10^3/uL (2.7-7.7); Neutrophil % 75.7 % (47-70); Platelet Count 267 K/mm3 (150-450); RBC Distribution Width CV 14.1 % (11.6-14.6); RBC Distribution Width SD 48.6 fl (35.1-43.9); Red Blood Count 3.36 M/mm3 (4.2-5.4); White Blood Count 8.4 K/mm3 (4.4-11.0)
[2023-08-13 18:41] LABS: ALB/GLOB Ratio 0.7 RATIO (0.9-2.4); AST(SGOT) 12 U/L (15-37); Alanine Aminotransfer ALT/SGPT 15 U/L (13-56); Albumin, Serum 2.5 g/dL (3.2-5.0); Alkaline Phosphatase 84 U/L (45-117); Anion Gap 7 (5-15); BUN 28 mg/dL (7-18); BUN/Creat Ratio 14.2 RATIO (10-20); Calcium,Total 8.6 mg/dL (8.5-10.1); Chloride 105 mmol/L (98-107); Creatinine, Serum 1.97 mg/dL (0.55-1.02); EST Glomerular Filtration Rate 26 mL/min (>60); Est Glom Filt Rate - Afr Amer 31 mL/min (>60); Globulin 3.7 g/dL (2.2-4.2); Glucose 147 mg/dL (74-106); Potassium 4.5 mmol/L (3.5-5.1); Protein, Total 6.2 g/dL (6.4-8.2); Sodium Level 140 mmol/L (136-145); Thyroid Stim Hormone (TSH) 2.73 uIU/mL (0.358-3.74)
== END 2023-08-13 23:59 | disposition home or self-care (01) ==
LOC: LAB 15:44
PROVIDERS: PCP Family Medicine Geriatric Medicine; Referring Provider Family Medicine Geriatric Medicine; Visit Provider Family Medicine Geriatric Medicine
DX: I12.9 Hypertensive chronic kidney disease with stage 1 through stage 4 chronic kidney disease, or unspecified chronic kidney disease (principal); N18.4 Chronic kidney disease, stage 4 (severe); E11.22 Type 2 diabetes mellitus with diabetic chronic kidney disease
CPT/HCPCS: 36415; 80053; 84443; 85025

== ENCOUNTER → 2023-08-20 | Outpatient (CLI) | payer MEDICARE, OTHER, SELFPAY ==
[2023-08-20 17:05] LABS: Anion Gap 6 (5-15); BUN 28 mg/dL (7-18); BUN/Creat Ratio 16.3 RATIO (10-20); Calcium,Total 8.8 mg/dL (8.5-10.1); Chloride 109 mmol/L (98-107); Creatinine, Serum 1.72 mg/dL (0.55-1.02); EST Glomerular Filtration Rate 30 mL/min (>60); Est Glom Filt Rate - Afr Amer 36 mL/min (>60); Glucose 137 mg/dL (74-106); Sodium Level 142 mmol/L (136-145)
== END | disposition home or self-care (01) ==
LOC: LAB 15:18
PROVIDERS: PCP Family Medicine Geriatric Medicine; Referring Provider Family Medicine Geriatric Medicine; Visit Provider Family Medicine Geriatric Medicine
DX: N18.4 Chronic kidney disease, stage 4 (severe) (principal)
CPT/HCPCS: 36415; 80048

== ENCOUNTER → 2023-08-29 | Outpatient (CLI) | payer MEDICARE, OTHER, SELFPAY ==
--- NOTE | 2023-08-29 12:35 | RAD_ITS ---
STUDY: XR Hand Min 3 Views REASON FOR EXAM: Female, 83 years old. FALL LEFT HAND PAIN TECHNIQUE: XR Hand 4 Views LEFT COMPARISON: None. FINDINGS: Normal radiocarpal articulation. Normal distal radioulnar joint. Normal visualized carpal bones. Normal carpal articulations There is degenerative arthrosis of the carpometacarpal (CMC) articulation of the thumb. Normal second through fifth carpometacarpal joints. Normal metacarpi. Normal metacarpophalangeal joint of the thumb. There is degenerative arthrosis of the interphalangeal joint of the thumb with articular joint space narrowing. Normal proximal and distal phalanges of the thumb. Normal metacarpophalangeal joints of the second through 3rd fingers. There is diffuse articular joint space narrowing of the proximal and distal interphalangeal joints of the second through 4th fingers, but without erosive changes or periarticular soft tissue swelling. Normal phalanges of the second through fifth fingers. The soft tissue structures are unremarkable. RAD/Hand Min 3 Views IMPRESSION: Degenerative joint disease of the hand and wrist, as described above. Electronically Signed: Krzysztof San MD at 20:17 EDT Reading Location ID and State: [facility] / [place] , Service support ,
--- NOTE | 2023-08-29 12:35 | RAD_ITS ---
EXAM: XR LEFT WRIST COMPLETE, 3 OR MORE VIEWS CLINICAL INDICATION: FALL LEFT WRIST PAIN TECHNIQUE: Frontal, lateral and oblique views of the left wrist. COMPARISON: No relevant prior studies available. FINDINGS: BONES/JOINTS: Degenerative findings of the first carpal metacarpal joint. Degenerative findings of the second third and fourth metacarpal phalangeal joint. No acute fracture. No subluxation. Normal alignment. No sclerotic or destructive changes observed. SOFT TISSUES: Unremarkable. No soft tissue swelling or gas. No radiopaque foreign body. RAD/Wrist min 3 Views IMPRESSION: No acute findings in the left wrist. Electronically Signed: Krzysztof San MD at 20:24 EDT ,
--- NOTE | 2023-08-29 13:56 | CT_ITS ---
STUDY: CT BRAIN WITHOUT CONTRAST REASON FOR EXAM: Female, 83 years old. CLOSED HEAD INJURY RADIATION DOSAGE (If Supplied By Facility): CTDIvol = ( 44.99 ) mGy, DLP = ( 812.98 ) mGycm TECHNIQUE: Transaxial CT imaging of the brain was performed without administration of intravenous contrast material. Individualized dose optimization techniques were used for this CT. COMPARISON: No relevant priors. FINDINGS: Normal soft tissue structures. There is hyperostosis frontalis internus. There is mild cerebral atrophy with widening of the extra-axial spaces and ventricular dilatation. Normal white matter tracts of the cerebral hemispheres. There are small punctate calcifications of the basal ganglia which are seen in the aging brain as a normal variant. Finding suggestive of an old lacunar infarct in the left basal ganglion. Normal brainstem. Normal cerebellum. There is no intracranial hemorrhage. There are no findings of an acute ischemic infarction. Atherosclerotic calcification of the vertebral arteries and cavernous portions of the internal carotid arteries bilaterally. Normal visualized paranasal sinuses. CT/Brain/Head without Contrast IMPRESSION: Chronic involutional changes of the brain. Findings suggestive of old lacunar infarct in the left basal ganglion. Electronically Signed: Huey Gomez MD at 14:27 EDT ,
[2023-08-29 14:35] LABS: Absolute Lymphocyte Count 1.12 X10^3/uL (0.83-4.51); Absolute Neutrophil Count 5.1 X10^3/uL (2.0-7.7); Basophil# 0.03 X10^3/uL; Basophil% 0.4 % (0-1); Eosinophil# 0.14 X10^3/uL; Hematocrit 34.3 % (37-47); Hemoglobin 10.4 g/dL (12.0-15.0); Lymphocyte # 1.12 X10^3/ul (0.83-4.51); Lymphocyte % 15.9 % (19-41); Mean Corp Hgb Conc 30.3 g/dL (32-36); Mean Corpuscular Hgb 28.6 pg (27.0-32.0); Mean Corpuscular Volume 94.2 fL (81-99); Mean Platelet Vol. 9.8 fl (6.2-12.0); Monocyte# 0.65 X10^3/uL; Monocyte% 9.2 % (0-10); NRBC Flagged by Analyzer 0 % (0-5); Neutrophil # 5.07 X10^3/uL (2.7-7.7); Neutrophil % 71.9 % (47-70); Platelet Count 292 K/mm3 (150-450); RBC Distribution Width CV 14.8 % (11.6-14.6); RBC Distribution Width SD 51.3 fl (35.1-43.9); Red Blood Count 3.64 M/mm3 (4.2-5.4); White Blood Count 7.1 K/mm3 (4.4-11.0)
== END | disposition home or self-care (01) ==
PROVIDERS: PCP Family Medicine Geriatric Medicine; Referring Provider Family Medicine Geriatric Medicine; Visit Provider Family Medicine Geriatric Medicine
DX: S09.90XA Unspecified injury of head, initial encounter (principal); M79.642 Pain in left hand; M25.532 Pain in left wrist; E78.5 Hyperlipidemia, unspecified; W19.XXXA Unspecified fall, initial encounter
CPT/HCPCS: 36415; 70450; 73110; 73130; 85025

== ENCOUNTER → 2023-09-13 | Outpatient (CLI) | payer MEDICARE, OTHER, SELFPAY ==
[2023-09-13 15:20] LABS: M R Staph aureus DNA By PCR Negative (Negative); Probe Check PASS; Specimen Processing Control PASS; Staph aureus DNA By PCR POSITIVE (Negative)
== END | disposition home or self-care (01) ==
LOC: LABSPEC 13:36
PROVIDERS: PCP Family Medicine Geriatric Medicine; Referring Provider Family Medicine Geriatric Medicine; Visit Provider Family Medicine Geriatric Medicine
DX: L03.115 Cellulitis of right lower limb (principal)
CPT/HCPCS: 87070; 87077; 87186; 87205; 87640

== ENCOUNTER → 2023-10-14 | Outpatient (CLI) | payer MEDICARE, OTHER, SELFPAY ==
--- NOTE | 2023-10-14 11:45 | RAD_ITS ---
STUDY: X-RAY CHEST REASON FOR EXAM: Female, 83 years old. Short of breath. TECHNIQUE: PA and lateral views of the chest. COMPARISON: Comparison is made with prior study dated July 22, 2023. FINDINGS: Small bilateral pleural effusions with bibasilar atelectasis and/or infiltrates. Slightly more prominent on the left side. Normal size heart. Normal mediastinum and binh. Normal visualized pulmonary arteries. There is atherosclerotic calcification of the aortic arch with tortuosity. There are diffuse degenerative changes of the visualized thoracic spine. Normal visualized ribs, clavicles, and shoulders. There is no demonstrated abnormality of the visualized soft tissue structures of the upper abdomen. RAD/Chest PA and Lateral IMPRESSION: Blunting of both costophrenic angles suggestive of small bilateral pleural effusions with underlying basilar atelectasis and/or infiltration. Electronically Signed: Huey Gomez MD at 12:08 EDT ,
== END | disposition home or self-care (01) ==
PROVIDERS: PCP Family Medicine Geriatric Medicine; Referring Provider Family Medicine Geriatric Medicine; Visit Provider Family Medicine Geriatric Medicine
DX: R06.02 Shortness of breath (principal); R68.83 Chills (without fever)
CPT/HCPCS: 71046; 87631

== ENCOUNTER → 2023-10-21 | Outpatient (CLI) | payer MEDICARE, OTHER, SELFPAY ==
[2023-10-21 16:13] LABS: Absolute Lymphocyte Count 0.86 X10^3/uL (0.83-4.51); Absolute Neutrophil Count 9.3 X10^3/uL (2.0-7.7); Basophil# 0.04 X10^3/uL; Basophil% 0.4 % (0-1); Eosinophil# 0.17 X10^3/uL; Eosinophils% 1.5 % (0-5); Hematocrit 34.1 % (37-47); Hemoglobin 10.5 g/dL (12.0-15.0); Lymphocyte # 0.86 X10^3/ul (0.83-4.51); Lymphocyte % 7.7 % (19-41); Mean Corp Hgb Conc 30.8 g/dL (32-36); Mean Corpuscular Volume 90.9 fL (81-99); Mean Platelet Vol. 10.2 fl (6.2-12.0); Monocyte# 0.66 X10^3/uL; Monocyte% 5.9 % (0-10); NRBC Flagged by Analyzer 0 % (0-5); Neutrophil # 9.33 X10^3/uL (2.7-7.7); Neutrophil % 84.1 % (47-70); Platelet Count 313 K/mm3 (150-450); RBC Distribution Width CV 14.9 % (11.6-14.6); RBC Distribution Width SD 50.1 fl (35.1-43.9); Red Blood Count 3.75 M/mm3 (4.2-5.4); White Blood Count 11.1 K/mm3 (4.4-11.0)
[2023-10-21 16:54] LABS: Anion Gap 6 (5-15); BUN 26 mg/dL (7-18); BUN/Creat Ratio 19.3 RATIO (10-20); Chloride 107 mmol/L (98-107); Creatinine, Serum 1.35 mg/dL (0.55-1.02); EST Glomerular Filtration Rate 40 mL/min (>60); Est Glom Filt Rate - Afr Amer 48 mL/min (>60); Glucose 94 mg/dL (74-106); Sodium Level 142 mmol/L (136-145)
[2023-10-21 16:55] LABS: BNP,B-Type NATRIURETIC PEPTIDE 190.8 pg/mL (0-100)
== END | disposition home or self-care (01) ==
LOC: LAB 15:36
PROVIDERS: PCP Family Medicine Geriatric Medicine; Referring Provider Physician Assistant Medical; Visit Provider Physician Assistant Medical
DX: R06.09 Other forms of dyspnea (principal); I48.91 Unspecified atrial fibrillation
CPT/HCPCS: 36415; 80048; 83880; 85025

== ENCOUNTER → 2023-10-22 | Outpatient (CLI) | payer MEDICARE, OTHER, SELFPAY ==
[2023-10-22 16:39] LABS: Absolute Lymphocyte Count 0.99 X10^3/uL (0.83-4.51); Absolute Neutrophil Count 9.3 X10^3/uL (2.0-7.7); Basophil# 0.06 X10^3/uL; Basophil% 0.5 % (0-1); Eosinophil# 0.15 X10^3/uL; Eosinophils% 1.3 % (0-5); Hematocrit 36.2 % (37-47); Hemoglobin 10.9 g/dL (12.0-15.0); Lymphocyte # 0.99 X10^3/ul (0.83-4.51); Lymphocyte % 8.8 % (19-41); Mean Corp Hgb Conc 30.1 g/dL (32-36); Mean Corpuscular Hgb 27.7 pg (27.0-32.0); Mean Corpuscular Volume 91.9 fL (81-99); Mean Platelet Vol. 10.9 fl (6.2-12.0); Monocyte# 0.73 X10^3/uL; Monocyte% 6.5 % (0-10); NRBC Flagged by Analyzer 0 % (0-5); Neutrophil # 9.31 X10^3/uL (2.7-7.7); Neutrophil % 82.3 % (47-70); Platelet Count 344 K/mm3 (150-450); RBC Distribution Width CV 14.8 % (11.6-14.6); RBC Distribution Width SD 49.9 fl (35.1-43.9); Red Blood Count 3.94 M/mm3 (4.2-5.4); White Blood Count 11.3 K/mm3 (4.4-11.0)
[2023-10-22 17:13] LABS: Vitamin D,25 Hydroxy 44.2 ng/mL
[2023-10-22 17:18] LABS: Hemoglobin A1c 6.4 % (3.8-5.6)
[2023-10-22 17:22] LABS: ALB/GLOB Ratio 0.7 RATIO (0.9-2.4); AST(SGOT) 7 U/L (15-37); Alanine Aminotransfer ALT/SGPT 11 U/L (13-56); Albumin, Serum 2.7 g/dL (3.2-5.0); Alkaline Phosphatase 94 U/L (45-117); Anion Gap 5 (5-15); BUN 25 mg/dL (7-18); BUN/Creat Ratio 17.5 RATIO (10-20); Calcium,Total 8.6 mg/dL (8.5-10.1); Chloride 110 mmol/L (98-107); Creatinine, Serum 1.43 mg/dL (0.55-1.02); EST Glomerular Filtration Rate 37 mL/min (>60); Est Glom Filt Rate - Afr Amer 45 mL/min (>60); Globulin 3.9 g/dL (2.2-4.2); Glucose 114 mg/dL (74-106); Potassium 3.6 mmol/L (3.5-5.1); Protein, Total 6.6 g/dL (6.4-8.2); Sodium Level 144 mmol/L (136-145)
== END | disposition home or self-care (01) ==
LOC: POLAB3 16:10
PROVIDERS: PCP Family Medicine Geriatric Medicine; Visit Provider Family Medicine Geriatric Medicine
DX: E11.65 Type 2 diabetes mellitus with hyperglycemia (principal); I10 Essential (primary) hypertension; E55.9 Vitamin D deficiency, unspecified; R68.83 Chills (without fever)
CPT/HCPCS: 36415; 80053; 82306; 83036; 84443; 85025; 87631

== ENCOUNTER → 2023-11-26 | Outpatient (CLI) | payer MEDICARE, OTHER, SELFPAY ==
--- NOTE | 2023-11-26 16:50 | RAD_ITS ---
STUDY: X-RAY CHEST REASON FOR EXAM: Female, 83 years old. Shortness of breath. TECHNIQUE: Frontal and lateral views of the chest on 3 images. COMPARISON: October 14, 2023 FINDINGS: Stable cardiomegaly with aortic tortuosity and calcification. Decrease in bilateral pleural effusions with maintenance of small bilateral effusions, left greater than right. Mild diffuse interstitial pattern, slightly decreased No abnormality of the visualized soft tissue structures of the upper abdomen. RAD/Chest PA and Lateral IMPRESSION: Radiographic improvement with decrease in the interstitial prominence and effusions. No acute finding. Electronically Signed: Woody Mast MD at 11:11 EDT ,
[2023-11-26 16:52] LABS: Absolute Lymphocyte Count 0.81 X10^3/uL (0.83-4.51); Absolute Neutrophil Count 10.7 X10^3/uL (2.0-7.7); Basophil# 0.02 X10^3/uL; Basophil% 0.2 % (0-1); Eosinophil# 0.02 X10^3/uL; Eosinophils% 0.2 % (0-5); Hematocrit 36.3 % (37-47); Lymphocyte # 0.81 X10^3/ul (0.83-4.51); Lymphocyte % 6.5 % (19-41); Mean Corp Hgb Conc 30.3 g/dL (32-36); Mean Corpuscular Hgb 27.3 pg (27.0-32.0); Mean Corpuscular Volume 90.1 fL (81-99); Mean Platelet Vol. 11.1 fl (6.2-12.0); Monocyte% 7.2 % (0-10); NRBC Flagged by Analyzer 0 % (0-5); Neutrophil # 10.65 X10^3/uL (2.7-7.7); Neutrophil % 85.3 % (47-70); Platelet Count 194 K/mm3 (150-450); RBC Distribution Width CV 15.6 % (11.6-14.6); RBC Distribution Width SD 51.4 fl (35.1-43.9); Red Blood Count 4.03 M/mm3 (4.2-5.4); White Blood Count 12.5 K/mm3 (4.4-11.0)
[2023-11-26 17:03] LABS: Erythrocyte Sedimentation Rate 17 mm/hr (0-30)
[2023-11-26 17:20] LABS: BNP,B-Type NATRIURETIC PEPTIDE 528.5 pg/mL (0-100)
[2023-11-26 17:23] LABS: ALB/GLOB Ratio 0.6 RATIO (0.9-2.4); AST(SGOT) 10 U/L (15-37); Alanine Aminotransfer ALT/SGPT 28 U/L (13-56); Albumin, Serum 2.4 g/dL (3.2-5.0); Alkaline Phosphatase 88 U/L (45-117); Anion Gap 4 (5-15); BUN 33 mg/dL (7-18); BUN/Creat Ratio 19.2 RATIO (10-20); Calcium,Total 9.2 mg/dL (8.5-10.1); Chloride 105 mmol/L (98-107); Creatinine, Serum 1.72 mg/dL (0.55-1.02); EST Glomerular Filtration Rate 30 mL/min (>60); Est Glom Filt Rate - Afr Amer 36 mL/min (>60); Globulin 3.7 g/dL (2.2-4.2); Glucose 173 mg/dL (74-106); Potassium 4.6 mmol/L (3.5-5.1); Protein, Total 6.1 g/dL (6.4-8.2); Sodium Level 139 mmol/L (136-145)
== END | disposition home or self-care (01) ==
LOC: POLAB3 16:26 → RAD 16:43
PROVIDERS: PCP Family Medicine Geriatric Medicine; Referring Provider Family Medicine Geriatric Medicine; Visit Provider Family Medicine Geriatric Medicine
DX: I12.9 Hypertensive chronic kidney disease with stage 1 through stage 4 chronic kidney disease, or unspecified chronic kidney disease (principal); N18.32 Chronic kidney disease, stage 3b; R06.02 Shortness of breath; L03.116 Cellulitis of left lower limb; M79.605 Pain in left leg
CPT/HCPCS: 36415; 71046; 80053; 83605; 83880; 85025; 85652; 86140; 87070; 87075; 87077; 87186; 87205

== ENCOUNTER → 2023-11-27 | Outpatient (CLI) | payer MEDICARE, OTHER, SELFPAY ==
--- NOTE | 2023-11-27 09:18 | VDLE_ITS ---
Reason For Study: LLE Pain RIGHT LEFT CFV is compressible, spontaneous, phasic, GSV is normal. competent and demonstrates normal CFV is compressible, spontaneous, phasic, augmentation. competent, and demonstrates normal Procedure augmentation. This is a venous duplex using B-mode, color FV is compressible, spontaneous, phasic, flow and spectral Doppler. competent and demonstrates normal Exam performed in department. augmentation. Limited views were obtained. POP V is compressible, spontaneous, phasic, Technically difficult study due to Body competent and demonstrates normal Habitus and Edema. augmentation. A preliminary report was called and/or faxed T/P Trunk is compressible. to Dr. Douglas office. PTV is compressible. LT PerV is compressible. VL/Venous Duplex US, Unilateral Interpretation Summary Deep veins of the left lower extremity are patent and compressible segmentally. There is no evidence of left lower extremity deep vein thrombosis. The left great saphenous vein cristopher ears patent and compressible segmentally. Ordering Physician: Alexy Douglas Chi Referring Physician: Alexy Douglas Chi Performed By: Kenan Acosta RVT
== END | disposition home or self-care (01) ==
LOC: CVS 09:16
PROVIDERS: PCP Family Medicine Geriatric Medicine; Referring Provider Family Medicine Geriatric Medicine; Visit Provider Family Medicine Geriatric Medicine
DX: R06.02 Shortness of breath (principal); M79.606 Pain in leg, unspecified
CPT/HCPCS: 93971

== ENCOUNTER → 2023-11-28 | Outpatient (CLI) | payer MEDICARE, OTHER, SELFPAY ==
[2023-11-28 14:53] LABS: Anion Gap 8 (5-15); BUN 39 mg/dL (7-18); BUN/Creat Ratio 19.6 RATIO (10-20); Calcium,Total 9.6 mg/dL (8.5-10.1); Chloride 105 mmol/L (98-107); Creatinine, Serum 1.99 mg/dL (0.55-1.02); EST Glomerular Filtration Rate 25 mL/min (>60); Est Glom Filt Rate - Afr Amer 31 mL/min (>60); Glucose 163 mg/dL (74-106); Sodium Level 138 mmol/L (136-145)
== END | disposition home or self-care (01) ==
LOC: POLAB3 14:06
PROVIDERS: PCP Family Medicine Geriatric Medicine; Visit Provider Family Medicine Geriatric Medicine
DX: I10 Essential (primary) hypertension (principal)
CPT/HCPCS: 36415; 80048

== ENCOUNTER 2023-12-02 11:57 | Inpatient (IN) | payer MEDICARE, OTHER, SELFPAY ==
[2023-12-02] VITALS (10 sets, daily range): BP systolic 111–130; BP diastolic 64–92; PULSE 115–129; RESP 16–30; TEMP 35.5–36.8; O2SAT 93–98; BMI 39.2; BMI 39.5
[2023-12-02] MEDS: Ondansetron 4 MG/2 ML Vial IV (13:05)
[2023-12-02] MEDS: Morphine 2 MG/ML Syringe IV (13:06)
[2023-12-02 13:10] LABS: Erythrocyte Sedimentation Rate 24 mm/hr (0-30)
[2023-12-02 13:14] LABS: Absolute Lymphocyte Count 0.82 X10^3/uL (0.83-4.51); Absolute Neutrophil Count 8.1 X10^3/uL (2.0-7.7); Basophil# 0.07 X10^3/uL; Basophil% 0.7 % (0-1); Eosinophil# 0.14 X10^3/uL; Eosinophils% 1.4 % (0-5); Hematocrit 36.2 % (37-47); Hemoglobin 10.9 g/dL (12.0-15.0); Lymphocyte # 0.82 X10^3/ul (0.83-4.51); Lymphocyte % 8.2 % (19-41); Mean Corp Hgb Conc 30.1 g/dL (32-36); Mean Corpuscular Hgb 27.3 pg (27.0-32.0); Mean Corpuscular Volume 90.5 fL (81-99); Mean Platelet Vol. 10.1 fl (6.2-12.0); NRBC Flagged by Analyzer 0 % (0-5); Neutrophil # 8.09 X10^3/uL (2.7-7.7); Neutrophil % 81.4 % (47-70); Platelet Count 304 K/mm3 (150-450); RBC Distribution Width CV 15.4 % (11.6-14.6); RBC Distribution Width SD 50.8 fl (35.1-43.9)
--- NOTE | 2023-12-02 13:15 | RAD_ITS ---
STUDY: X-RAY - LEFT FOOT CLINICAL: Female, 83 years old. Pain/infection TECHNIQUE: 3 view(s) of the foot. COMPARISON: Comparison is made with prior study May 18, 2022. FINDINGS: There is a plantar calcaneal spur. Normal visualized subtalar, talonavicular, calcaneocuboid, tarsal and tarsometatarsal articulations. Normal metatarsi. There is degenerative arthrosis of the metatarsophalangeal joint of the hallux . Normal tibial and fibular sesamoid bones. Normal interphalangeal joint of the great toe. Normal phalanges of the great toe. Normal second through fifth metatarsophalangeal joints. Normal interphalangeal joints and phalanges of the lesser toes. Diffuse soft tissue swelling. RAD/Foot min 3 Views IMPRESSION: Diffuse soft tissue swelling. Plantar spur. Electronically Signed: Huey Gomez MD at 14:09 EDT ,
[2023-12-02 13:18] LABS: International Normalized Ratio 1.2; Prothrombin Time (Protime)PT. 14.8 SECONDS (11.7-14.9)
[2023-12-02 13:19] LABS: Partial Thromboplast Time 27.2 Seconds (24.1-36.2)
[2023-12-02 13:28] LABS: ALB/GLOB Ratio 0.6 RATIO (0.9-2.4); AST(SGOT) 12 U/L (15-37); Alanine Aminotransfer ALT/SGPT 22 U/L (13-56); Albumin, Serum 2.3 g/dL (3.2-5.0); Alkaline Phosphatase 92 U/L (45-117); Anion Gap 8 (5-15); BUN 34 mg/dL (7-18); BUN/Creat Ratio 18.5 RATIO (10-20); Calcium,Total 8.9 mg/dL (8.5-10.1); Chloride 105 mmol/L (98-107); Creatinine, Serum 1.84 mg/dL (0.55-1.02); EST Glomerular Filtration Rate 28 mL/min (>60); Est Glom Filt Rate - Afr Amer 34 mL/min (>60); Estimated Creatinine Clearance 30.59 ml/min; Globulin 3.8 g/dL (2.2-4.2); Glucose 158 mg/dL (74-106); Potassium 3.5 mmol/L (3.5-5.1); Protein, Total 6.1 g/dL (6.4-8.2); Sodium Level 141 mmol/L (136-145)
[2023-12-02 13:32] LABS: Lactic Acid 1.3 mmol/L (0.4-1.9)
--- NOTE | 2023-12-02 13:50 | EX.ED.DYSGE1 ---
HPI History of Present Illness Chief Complaint: Cellulitis Informant: patient Narrative Narrative: 83-year-old female diabetic is had pain, swelling, redness designated as probable infection on her left foot for about a week or so, she saw her PCP and she has been on Cipro, cephalexin, and doxycycline for the past week, it is getting worse. She saw her doctor again today, and out of concern for it spreading up her leg and getting worse, she was sent here to the ER. She is not following with anyone else for this at this time. States she has had some chills last week, feeling malaised. No other systemic symptoms. [facility] Medical History Diabetes Rheumatoid arthritis On home oxygen therapy Low iron Insulin dependent diabetes mellitus Wears glasses Wears dentures Cancer History of steroid therapy History of renal disease High cholesterol Restless legs Injury of back Back pain Dietary restriction Shortness of breath on exertion History of pain when walking History of edema History of echocardiogram History of stress test Cardiology follow-up encounter History of CHF (congestive heart failure) History of atrial fibrillation Hyperlipidemia Overactive bladder Hypothyroidism Diabetes mellitus Hypertension Chronic kidney disease, stage 3b Former smoker Atrial fibrillation Hypertension Chronic anticoagulation Skin cancer, basal cell Actinic keratosis Skin lesion Skin cancer Chronic diastolic (congestive) heart failure Longstanding persistent atrial fibrillation Diastolic dysfunction Secondary pulmonary arterial hypertension Non-rheumatic tricuspid valve insufficiency Stage 2 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 Right hip pain Disc degeneration, lumbar Fatigue UTI (urinary tract infection) Hypoxia Hypersomnia COPD (chronic obstructive pulmonary disease) Obesity Tobacco dependence in remission CKD (chronic kidney disease) stage 3, GFR 30-59 ml/min Breast cancer Essential (primary) hypertension BMI 39.0-39.9,adult Erosion of bladder suspension mesh SHAKIRA (stress urinary incontinence, female) Home Medications ?Medication ?Instructions ?Recorded ?Last Taken ?Type mirabegron 50 mg tablet,extended 50 mg PO QHS 11/14/22 Unknown History release 24 hr (Myrbetriq) metoprolol tartrate 100 mg tablet 100 mg PO BID BP/heart rate #180 04/05/23 Unknown Rx tabs diltiazem HCl 240 mg 240 mg PO DAILY heart #90 caps 04/26/23 Unknown Rx capsule,extended release 24 hr insulin degludec 100 unit/mL (3 40 unit subcut QHS blood sugar 07/19/23 Unknown History mL) subcutaneous pen levothyroxine 50 mcg tablet 50 mcg PO DAILY@0600 #0 tabs 08/02/23 Unknown Rx polysaccharide iron complex 150 mg 150 mg PO DAILY 30 days #30 caps 08/02/23 Unknown Rx iron capsule (Ferrex) potassium chloride 20 mEq 20 meq PO BIDCM 30 days #60 tabs 08/02/23 Unknown Rx tablet,extended release(part/cryst) apixaban 2.5 mg tablet (Eliquis) 2.5 mg PO BID blood thinner 08/20/23 Unknown History furosemide 40 mg tablet 40 mg PO BID 10/21/23 Unknown History sacubitril 49 mg-valsartan 51 mg 1 tab PO BID 10/21/23 Unknown History tablet (Entresto) cephalexin 500 mg capsule 500 mg PO Q6H 12/02/23 Unknown History ciprofloxacin HCl 250 mg tablet 250 mg PO BID 12/02/23 Unknown History doxycycline hyclate 100 mg tablet 100 mg PO BID 12/02/23 Unknown History insulin glargine U-300 conc 300 40 unit subcut DAILY 12/02/23 Unknown History unit/mL (3 mL) subcutaneous pen (Toujeo Max U-300 SoloStar) levothyroxine 200 mcg tablet 200 mcg PO DAILY 12/02/23 Unknown History rosuvastatin 40 mg tablet 40 mg PO QHS 12/02/23 Unknown History Allergy/AdvReac Type Severity Reaction Status Date / Time Sulfa (Sulfonamide Allergy PEELING Verified 12/02/23 12:02 Antibiotics) RASH Family History Mother Colon cancer Cancer skin, bladder Daughter Cancer Thyroid Sister CAD (coronary artery disease) Surgical History Hx of colonoscopy Hx of right cataract extraction Hx of left cataract extraction History of excision of lesion Hx of local excision of skin lesion History of cardioversion (03/20/19) History of hysterectomy History of partial mastectomy History of left heart catheterization (05/31/14) Social History household members: none housing: house current occupational status: retired Smoking Status: Former smoker how long ago did patient quit smokin, 2p/day second hand exposure: Yes alcohol intake: current alcohol intake frequency: holidays/special occasions only substance use type: does not use ROS ROS ED Constitutional Constitutional ED: Reports chills, fever(s) and subjective Eyes Eyes: Denies change in vision or diplopia ENT ENT ED: Denies rhinorrhea or sore throat Cardiovascular Cardiovascular: Denies chest pain or palpitations Respiratory/Chest Respiratory/Chest: Denies cough or dyspnea Gastrointestinal Gastrointestinal: Denies abdominal pain, diarrhea, nausea or vomiting Genitourinary Genitourinary ED: Denies dysuria or hematuria Musculoskeletal Musculoskeletal: Reports extremity pain; Denies neck pain Integumentary Reports rash and wounds; Denies Abrasions Neurologic Neurologic: Denies paresthesias or weakness Psychiatric Psychiatric: Denies suicidal thoughts EXAM Physical Exam Const Vital Signs: 12/02/23 11:58 12/02/23 12:50 12/02/23 13:08 Temperature 96 F L 97.4 F L Temperature Source Temporal Temporal Pulse Rate 120 H 117 H Respiratory Rate 22 H 22 H Blood Pressure 125/71 H 117/92 H Blood Pressure Mean 89 100 Pulse Ox 96 97 Oxygen Delivery Method Room Air Room Air Room Air 12/02/23 14:00 Temperature 97.8 F Temperature Source Temporal Pulse Rate 126 H Respiratory Rate 18 Blood Pressure 117/83 H Blood Pressure Mean 94 Pulse Ox 97 Oxygen Delivery Method Room Air Positive well nourished, well developed and obese Constitutional Narrative: Will-appearing, eating a burger General Appearance ED: well developed and NAD Nutritional Appearance: obese HEENT Reports moist mucous membranes normocephalic and atraumatic Eyes PERRL and EOMs intact bilaterally Neck full ROM and supple Resp normal respiratory effort and clear to auscultation bilaterally Cardio regular rate, regular rhythm and no murmurs Rate: tachycardic GI non-tender and non-distended Auscultation: normoactive bowel sounds Palpation: soft Back/Spine normal ROM and normal to inspection General Back: other FROM Extremity Extremity Narrative: There is a superficial wound dorsal left foot, that looks like a ruptured blister. There are several other blisters that are nonruptured but no subcutaneous emphysema. The entire foot is very swollen and tender and erythematous, and the erythema progresses up the lower leg toward the knee but not including the knee. She has tenderness in a stocking glove distribution in the anterior lower leg as well as the calf, there are no palpable cords, there are more blisters that are nonruptured. Compartments are soft. General Extremety ED: Yes edema and tenderness; Negative for pulses abnormal General Extremity: edema left; Negative for pulses abnormal Neuro oriented x3, no focal motor deficits and no sensory deficits noted Sensorium / Orientation: alert Motor Exam: strength 5/5 throughout Psych mental status grossly normal and thought process normal Skin Skin Narrative: Cellulitis with blistering left lower extremity see above. No ulcerated wounds. No focal fluctuance to suggest an easily drainable abscess here. MDM MDM MDM Narrative Medical decision making narrative: This technically is a diabetic foot infection but it looks more like cellulitis is started in the foot and has progressed. She is clearly failed outpatient treatment being on 3 antibiotics for the past week and getting worse. Given that she has significant resting tachycardia I performed a septic workup. Her lactate is within normal limits, ESR and CRP are elevated, three-view foot x-ray left foot on my interpretation shows no obvious osteomyelitis or tracking subcutaneous emphysema. She was empirically given vancomycin and Zosyn to cover the below microbiology. Plan is for admission. Discussed w/ podiatry. History & Record Review Additional record(s) reviewed:: Prior outpatient record (Venous duplex Doppler left lower extremity 11/27/2023: Negative for acute DVT and negative for thrombosis of great saphenous vein.) and Other (Outpatient cultures: Pseudomonas, MRSA, Aerococcus viridans) Lab Data Attestation: I reviewed the patient's lab results. Labs: Laboratory Results - last 24 hr 12/02/23 12:50 WBC 10.0 RBC 4.00 L Hgb 10.9 L Hct 36.2 L MCV 90.5 MCH 27.3 MCHC 30.1 L RDW Std Deviation 50.8 H RDW Coeff of Sudha 15.4 H Plt Count 304 MPV 10.1 Immature Gran % (Auto) 1.300 H Neut % (Auto) 81.4 H Lymph % (Auto) 8.2 L [place] % (Auto) 7.0 Eos % (Auto) 1.4 Baso % (Auto) 0.7 Absolute Neuts (auto) 8.1 H Absolute Lymphs (auto) 0.82 L Nucleated RBC % 0 ESR 24 PT 14.8 INR 1.2 APTT 27.2 Sodium 141 Potassium 3.5 Chloride 105 Carbon Dioxide 28.0 Anion Gap 8 BUN 34 H Creatinine 1.84 H Estim Creat Clear Calc 30.59 Est GFR (MDRD) Af Amer 34 L Est GFR (MDRD) Non-Af 28 L BUN/Creatinine Ratio 18.5 Glucose 158 H Lactic Acid 1.3 Calcium 8.9 Total Bilirubin 0.30 AST 12 L ALT 22 Alkaline Phosphatase 92 C-React Prot Ext Range 60.60 H Total Protein 6.1 L Albumin 2.3 L Globulin 3.8 Albumin/Globulin Ratio 0.6 L Radiography Diagnostic Testing: Clinical Impression(s) from Imaging Studies Foot X-Ray 12/02/23 13:15 IMPRESSION: Diffuse soft tissue swelling. Plantar spur. Electronically Signed: Huey Gomez MD at 14:09 EDT , Management Discussion w/another healthcare provider: Hospitalist, Imaging Clerk (Podiatrneela Bedoya) and PCP Discharge Plan Dx/Rx/DC Orders Clinical Impression: Diabetic infection of left foot, Failure of outpatient treatment, Cellulitis of left lower leg, IDDM (insulin dependent diabetes mellitus) Disposition Disposition: Acute Care [facility]
--- NOTE | 2023-12-02 14:03 | HP.PCM.HOS_ITS ---
HPI - General HPI Narrative TONJA SÁNCHEZ, is a 83 F who presents [facility] Medical History Diabetes Rheumatoid arthritis On home oxygen therapy Low iron Insulin dependent diabetes mellitus Wears glasses Wears dentures Cancer History of steroid therapy History of renal disease High cholesterol Restless legs Injury of back Back pain Dietary restriction Shortness of breath on exertion History of pain when walking History of edema History of echocardiogram History of stress test Cardiology follow-up encounter History of CHF (congestive heart failure) History of atrial fibrillation Hyperlipidemia Overactive bladder Hypothyroidism Diabetes mellitus Hypertension Chronic kidney disease, stage 3b Former smoker Atrial fibrillation Hypertension Chronic anticoagulation Skin cancer, basal cell Actinic keratosis Skin lesion Skin cancer Chronic diastolic (congestive) heart failure Longstanding persistent atrial fibrillation Diastolic dysfunction Secondary pulmonary arterial hypertension Non-rheumatic tricuspid valve insufficiency Stage 2 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 Right hip pain Disc degeneration, lumbar Fatigue UTI (urinary tract infection) Hypoxia Hypersomnia COPD (chronic obstructive pulmonary disease) Obesity Tobacco dependence in remission CKD (chronic kidney disease) stage 3, GFR 30-59 ml/min Breast cancer Essential (primary) hypertension BMI 39.0-39.9,adult Erosion of bladder suspension mesh SHAKIRA (stress urinary incontinence, female) Home Medications ?Medication ?Instructions ?Recorded ?Last Taken ?Type mirabegron 50 mg tablet,extended 50 mg PO QHS 11/14/22 Unknown History release 24 hr (Myrbetriq) metoprolol tartrate 100 mg tablet 100 mg PO BID BP/heart rate #180 04/05/23 Unknown Rx tabs diltiazem HCl 240 mg 240 mg PO DAILY heart #90 caps 04/26/23 Unknown Rx capsule,extended release 24 hr insulin degludec 100 unit/mL (3 40 unit subcut QHS blood sugar 07/19/23 Unknown History mL) subcutaneous pen levothyroxine 50 mcg tablet 50 mcg PO DAILY@0600 #0 tabs 08/02/23 Unknown Rx polysaccharide iron complex 150 mg 150 mg PO DAILY 30 days #30 caps 08/02/23 Unknown Rx iron capsule (Ferrex) potassium chloride 20 mEq 20 meq PO BIDCM 30 days #60 tabs 08/02/23 Unknown Rx tablet,extended release(part/cryst) apixaban 2.5 mg tablet (Eliquis) 2.5 mg PO BID blood thinner 08/20/23 Unknown History furosemide 40 mg tablet 40 mg PO BID 10/21/23 Unknown History sacubitril 49 mg-valsartan 51 mg 1 tab PO BID 10/21/23 Unknown History tablet (Entresto) cephalexin 500 mg capsule 500 mg PO Q6H 12/02/23 Unknown History ciprofloxacin HCl 250 mg tablet 250 mg PO BID 12/02/23 Unknown History doxycycline hyclate 100 mg tablet 100 mg PO BID 12/02/23 Unknown History insulin glargine U-300 conc 300 40 unit subcut DAILY 12/02/23 Unknown History unit/mL (3 mL) subcutaneous pen (Toujeo Max U-300 SoloStar) levothyroxine 200 mcg tablet 200 mcg PO DAILY 12/02/23 Unknown History rosuvastatin 40 mg tablet 40 mg PO QHS 12/02/23 Unknown History Allergy/AdvReac Type Severity Reaction Status Date / Time Sulfa (Sulfonamide Allergy PEELING Verified 12/02/23 12:02 Antibiotics) RASH Family History Mother Colon cancer Cancer skin, bladder Daughter Cancer Thyroid Sister CAD (coronary artery disease) Surgical History Hx of colonoscopy Hx of right cataract extraction Hx of left cataract extraction History of excision of lesion Hx of local excision of skin lesion History of cardioversion (03/20/19) History of hysterectomy History of partial mastectomy History of left heart catheterization (05/31/14) Social History household members: none housing: house current occupational status: retired Smoking Status: Former smoker how long ago did patient quit smokin, 2p/day second hand exposure: Yes alcohol intake: current alcohol intake frequency: holidays/special occasions only substance use type: does not use Vital Signs Vital Signs Vital Signs: 12/02/23 11:58 12/02/23 12:50 12/02/23 13:08 Temperature 96 F L 97.4 F L Temperature Source Temporal Temporal Pulse Rate 120 H 117 H Respiratory Rate 22 H 22 H Blood Pressure 125/71 H 117/92 H Blood Pressure Mean 89 100 Pulse Ox 96 97 Oxygen Delivery Method Room Air Room Air Room Air Weight Weight: 117.027 kg Body Mass Index (BMI) 39.2 Results Lab / Micro Data 12/02/23 12:50 12/02/23 12:50 Labs: Laboratory Results - last 24 hr 12/02/23 12:50: WBC 10.0, RBC 4.00 L, Hgb 10.9 L, Hct 36.2 L, MCV 90.5, MCH 27.3, MCHC 30.1 L, RDW Std Deviation 50.8 H, RDW Coeff of Sudha 15.4 H, Plt Count 304, MPV 10.1, Immature Gran % (Auto) 1.300 H, Neut % (Auto) 81.4 H, Lymph % (Auto) 8.2 L, [place] % (Auto) 7.0, Eos % (Auto) 1.4, Baso % (Auto) 0.7, Absolute Neuts (auto) 8.1 H, Absolute Lymphs (auto) 0.82 L, Nucleated RBC % 0, ESR 24, PT 14.8, INR 1.2, APTT 27.2, Sodium 141, Potassium 3.5, Chloride 105, Carbon Dioxide 28.0, Anion Gap 8, BUN 34 H, Creatinine 1.84 H, Estim Creat Clear Calc 30.59, Est GFR (MDRD) Af Amer 34 L, Est GFR (MDRD) Non-Af 28 L, BUN/Creatinine Ratio 18.5, Glucose 158 H, Lactic Acid 1.3, Calcium 8.9, Total Bilirubin 0.30, A ST 12 L, ALT 22, Alkaline Phosphatase 92, C-React Prot Ext Range 60.60 H, Total Protein 6.1 L, Albumin 2.3 L, Globulin 3.8, Albumin/Globulin Ratio 0.6 L
[2023-12-02] MEDS: Piperacil/Tazobactam 3.375 GM in 0.9% Normal Saline (50mL MB+) 50 ML IV ×2 (14:18→22:38)
--- NOTE | 2023-12-02 14:47 | MRI_ITS ---
STUDY: MRI LEFT FOREFOOT WITHOUT CONTRAST REASON FOR EXAM: Female, 83 years old. Cellulitis/ r/o OM -- L foot TECHNIQUE: Standardized fat and water weighted pulse sequences were obtained in all 3 orthogonal planes. COMPARISON: X-ray December 02, 2023 FINDINGS: There is degenerative arthrosis of the metatarsophalangeal joint of the hallux. Normal tibial and fibular sesamoids, with normal sesamoids-first metatarsal articulations. Normal interphalangeal joint of the hallux. Normal proximal and distal phalanges of the great toe. Normal medial and lateral heads of the flexor hallucis brevis tendons. Normal flexor and extensor hallucis longus tendons. Normal second through fifth metatarsophalangeal (MTP) joints. Normal interphalangeal joints of the second through fifth toes. Normal proximal, middle and distal phalanges of the second through fifth toes. Normal first through fourth intermetatarsal spaces. Normal flexor and extensor tendons of the second through fifth toes. Normal visualized metatarsi. There is arthritic change of the tarsometatarsal articulations. Normal intrinsic muscles of the forefoot. There is soft tissue swelling of the dorsum of the foot with skin thickening and subcutaneous edema. MRI/Lower Ext/No Jt/w/o IMPRESSION: Soft tissue swelling. Arthritic change. No evidence of osteomyelitis. Electronically Signed: Tres Reynolds MD at 19:41 EDT ,
--- NOTE | 2023-12-02 14:48 | PCM.HP.STD ---
HPI - General General Date of Admission: 12/02/23 Date of Service: 12/02/23 Chief Complaint: L foot cellulitis HPI Narrative TONJA SÁNCHEZ, is a 83 F who presented to the emergency department at [facility] on 12/02/2019 for due to worsening left lower extremity cellulitis. The patient had cultures done as an outpatient by Dr. Douglas on 11/26/2023 at which time she was found to have MRSA and Pseudomonas on the culture and she was placed on oral ciprofloxacin, oral doxycycline, and was maintained on oral Keflex. She has been compliant with medications and she reports that the erythematous area has retracted however her foot looks dramatically worse. She stated she had a small blister that has slowly been enlarging and now has ruptured and the area is open. Given her outpatient failure of treatment she was sent to the emergency department for ongoing care. The patient complains of significant pain in that foot especially with ambulating and has been trying to elevated at home. She has no systemic complaints and has otherwise been well. Her heart rate was noted to be elevated on presentation but she states she has not taken any of her home medications yet today. Vital signs on presentation showed a temperature of 96, heart rate 120, respiratory was 22, blood pressure was 125/71 and pulse ox was 96% on room air. CBC shows an improving white count currently with a white count of 10,000, chronic stable anemia and normal platelets with a left shifted and 81.4% neutrophilia. Coags are unremarkable. Chemistry panel shows normal electrolytes with mildly elevated serum creatinine from baseline at 1.84, glucose of 158. Her last hemoglobin A1c done on 10/22/2023 was 6.4. CRP was 60.6 and has significantly trended down in the last 6 days. On 11/26/2023 was 186. Plain films of the foot show diffuse soft tissue swelling and plantar spur. She did have venous duplex performed on 11/26/2023 and was unremarkable for any DVT. She was given antibiotics with vancomycin and Zosyn in the emergency department as well as 1 tablet of 100 mg of metoprolol as she had not taken it yet today and she was tachycardic with an A-fib on presentation. She is hemodynamically PFSH Medical History Diabetes Rheumatoid arthritis On home oxygen therapy Low iron Insulin dependent diabetes mellitus Wears glasses Wears dentures Cancer History of steroid therapy History of renal disease High cholesterol Restless legs Injury of back Back pain Dietary restriction Shortness of breath on exertion History of pain when walking History of edema History of echocardiogram History of stress test Cardiology follow-up encounter History of CHF (congestive heart failure) History of atrial fibrillation Hyperlipidemia Overactive bladder Hypothyroidism Diabetes mellitus Hypertension Chronic kidney disease, stage 3b Former smoker Atrial fibrillation Hypertension Chronic anticoagulation Skin cancer, basal cell Actinic keratosis Skin lesion Skin cancer Chronic diastolic (congestive) heart failure Longstanding persistent atrial fibrillation Diastolic dysfunction Secondary pulmonary arterial hypertension Non-rheumatic tricuspid valve insufficiency Stage 2 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 Right hip pain Disc degeneration, lumbar Fatigue UTI (urinary tract infection) Hypoxia Hypersomnia COPD (chronic obstructive pulmonary disease) Obesity Tobacco dependence in remission CKD (chronic kidney disease) stage 3, GFR 30-59 ml/min Breast cancer Essential (primary) hypertension BMI 39.0-39.9,adult Erosion of bladder suspension mesh SHAKIRA (stress urinary incontinence, female) Home Medications ?Medication ?Instructions ?Recorded ?Last Taken ?Type mirabegron 50 mg tablet,extended 50 mg PO QHS 11/14/22 Unknown History release 24 hr (Myrbetriq) metoprolol tartrate 100 mg tablet 100 mg PO BID BP/heart rate #180 04/05/23 Unknown Rx tabs diltiazem HCl 240 mg 240 mg PO DAILY heart #90 caps 04/26/23 Unknown Rx capsule,extended release 24 hr insulin degludec 100 unit/mL (3 40 unit subcut QHS blood sugar 07/19/23 Unknown History mL) subcutaneous pen levothyroxine 50 mcg tablet 50 mcg PO DAILY@0600 #0 tabs 08/02/23 Unknown Rx polysaccharide iron complex 150 mg 150 mg PO DAILY 30 days #30 caps 08/02/23 Unknown Rx iron capsule (Ferrex) potassium chloride 20 mEq 20 meq PO BIDCM 30 days #60 tabs 08/02/23 Unknown Rx tablet,extended release(part/cryst) apixaban 2.5 mg tablet (Eliquis) 2.5 mg PO BID blood thinner 08/20/23 Unknown History furosemide 40 mg tablet 40 mg PO BID 10/21/23 Unknown History sacubitril 49 mg-valsartan 51 mg 1 tab PO BID 10/21/23 Unknown History tablet (Entresto) cephalexin 500 mg capsule 500 mg PO Q6H 12/02/23 Unknown History ciprofloxacin HCl 250 mg tablet 250 mg PO BID 12/02/23 Unknown History doxycycline hyclate 100 mg tablet 100 mg PO BID 12/02/23 Unknown History insulin glargine U-300 conc 300 40 unit subcut DAILY 12/02/23 Unknown History unit/mL (3 mL) subcutaneous pen (Toujeo Max U-300 SoloStar) levothyroxine 200 mcg tablet 200 mcg PO DAILY 12/02/23 Unknown History rosuvastatin 40 mg tablet 40 mg PO QHS 12/02/23 Unknown History Allergy/AdvReac Type Severity Reaction Status Date / Time Sulfa (Sulfonamide Allergy PEELING Verified 12/02/23 12:02 Antibiotics) RASH Family History Mother Colon cancer Cancer skin, bladder Daughter Cancer Thyroid Sister CAD (coronary artery disease) Surgical History Hx of colonoscopy Hx of right cataract extraction Hx of left cataract extraction History of excision of lesion Hx of local excision of skin lesion History of cardioversion (03/20/19) History of hysterectomy History of partial mastectomy History of left heart catheterization (05/31/14) Social History household members: none housing: house current occupational status: retired Smoking Status: Former smoker how long ago did patient quit smokin, 2p/day second hand exposure: Yes alcohol intake: current alcohol intake frequency: holidays/special occasions only substance use type: does not use ROS Constitutional Constitutional: Denies anorexia, change in weight, chills, fatigue, fever(s), malaise, night sweats, weakness or other Eyes Eyes: Denies blurry vision, change in eye color, change in vision, discharge from eye(s), double vision, erythema, eye pain, loss of vision or other ENT HEENT: Denies abnormal hearing, dysphagia, ear pain, epistaxis, headache(s), hearing loss, nasal congestion, nasal discharge, post nasal drip, sinus pressure, sore throat or other Cardiovascular Cardiovascular: Denies chest pain, claudication, dyspnea on exertion, edema, lightheadedness, orthopnea, palpitations, paroxysmal nocturnal dyspnea, rapid heart rate, syncope or other Respiratory/Chest Respiratory/Chest: Denies cough, dyspnea, excessive phlegm production, hemoptysis, productive cough, shortness of breath at rest, shortness of breath with exertion, wheezing or other Gastrointestinal Gastrointestinal: Denies abdominal pain, coffee ground emesis, constipation, diarrhea, dyspepsia, hematemesis, hematochezia, loose stools, melena, nausea, vomiting or other Genitourinary Genitourinary: Denies burning urination, difficulty urinating, dysuria, hematuria, nocturia, urinary frequency, urinary hesitancy, urinary incontinence, urinary urgency or other Musculoskeletal Musculoskeletal: Reports other Details: Left lower extremity pain ; Denies arthralgias, back pain, joint pain, joint stiffness, joint swelling, myalgias or neck pain Integumentary Integumentary: Reports lesions and wounds; Denies dry skin, jaundice, new lesions, pruritus, rash or other Neurologic Neurologic: Denies abnormal gait, abnormal speech, confusion, disequilibrium, dizziness, focal weakness, headache(s), numbness, paresthesias, seizure-like activity, seizures, syncope, tingling, tremor(s) or other Psychiatric Psychiatric: Denies anxiety, depression, homicidal ideation, suicidal ideation or other Endocrine Endocrinology: Denies change in body appearance, cold intolerance, excessive sweating, heat intolerance, polydipsia, polyuria or other Hematologic/Lymphatic Hematologic/Lymphatic: Denies anemia, easy bleeding, easy bruising, lymphadenopathy or other Allergic/Immunologic Allergic/Immunologic: Denies rhinitis, hives, eczemia, asthma or other Vital Signs Vital Signs Vital Signs: 12/02/23 11:58 12/02/23 12:50 12/02/23 13:08 Temperature 96 F L 97.4 F L Temperature Source Temporal Temporal Pulse Rate 120 H 117 H Respiratory Rate 22 H 22 H Blood Pressure 125/71 H 117/92 H Blood Pressure Mean 89 100 Pulse Ox 96 97 Oxygen Delivery Method Room Air Room Air Room Air 12/02/23 14:00 Temperature 97.8 F Temperature Source Temporal Pulse Rate 126 H Respiratory Rate 18 Blood Pressure 117/83 H Blood Pressure Mean 94 Pulse Ox 97 Oxygen Delivery Method Room Air Weight Weight: 117.027 kg Body Mass Index (BMI) 39.2 Physical Exam Const alert, oriented x3, no apparent distress and well nourished; Negative for average body habitus or healthy appearing Constitutional Narrative: Obese, elderly, white female, sitting up in bed watching television, appears comfortable, does not appear toxic General Appearance: cooperative HEENT normocephalic, head/scalp atraumatic and moist oral mucous membranes; Negative for hearing grossly normal bilaterally HEENT Narrative: Mallampati 3, no thrush, dentures in place, mild to moderate hearing loss Eyes PERRL, EOMs intact bilaterally and conjunctivae normal Neck no lymphadenopathy and supple Neck Narrative: Neck is short and thick, trachea midline, redundant soft tissue Resp normal respiratory effort, no retractions, no use of accessory muscles and clear to auscultation bilaterally Auscultation: Negative for rales, rhonchi or wheezes Cardio S1 normal heart sound, S2 normal heart sound, no murmurs, no rub, no gallops and no clicks Cardio Narrative: Irregular irregular rhythm with rapid rate GI normal to inspection, nondistended, normoactive bowel sounds, soft to palpation and non-tender Extremity Extremity Narrative: Bilateral lower extremity edema that is pitting in nature, left greater than right, left lower extremity with erythema which appears to be retracting from previous outlined area, scattered blistering and intense distal left lower extremity erythema and tenderness, open blister that appears to be superficial on the dorsal aspect of her left foot Skin No no wounds, no jaundice, no petechiae and no mottling Skin Narrative: Left lower extremity as noted above Neuro oriented x3, moves all extremities and no focal motor deficits Speech: speech normal Psych affect normal Psych Narrative: Eye contact is good, patient is very pleasant, interacts appropriately Results Lab / Micro Data 12/02/23 12:50 12/02/23 12:50 Labs: Laboratory Results - last 24 hr 12/02/23 12:50: WBC 10.0, RBC 4.00 L, Hgb 10.9 L, Hct 36.2 L, MCV 90.5, MCH 27.3, MCHC 30.1 L, RDW Std Deviation 50.8 H, RDW Coeff of Sudha 15.4 H, Plt Count 304, MPV 10.1, Immature Gran % (Auto) 1.300 H, Neut % (Auto) 81.4 H, Lymph % (Auto) 8.2 L, Nelson % (Auto) 7.0, Eos % (Auto) 1.4, Baso % (Auto) 0.7, Absolute Neuts (auto) 8.1 H, Absolute Lymphs (auto) 0.82 L, Nucleated RBC % 0, ESR 24, PT 14.8, INR 1.2, APTT 27.2, Sodium 141, Potassium 3.5, Chloride 105, Carbon Dioxide 28.0, Anion Gap 8, BUN 34 H, Creatinine 1.84 H, Estim Creat Clear Calc 30.59, Est GFR (MDRD) Af Amer 34 L, Est GFR (MDRD) Non-Af 28 L, BUN/Creatinine Ratio 18.5, Glucose 158 H, Lactic Acid 1.3, Calcium 8.9, Total Bilirubin 0.30, AST 12 L, ALT 22, Alkaline Phosphatase 92, C-React Prot Ext Range 60.60 H, Total Protein 6.1 L, Albumin 2.3 L, Globulin 3.8, Albumin/Globulin Ratio 0.6 L Imaging Radiology Impression Foot X-Ray 12/02/23 13:15 IMPRESSION: Diffuse soft tissue swelling. Plantar spur. Electronically Signed: Huey Gomez MD at 14:09 EDT , Assessment & Plan Assessment/Plan (1) Cellulitis of left lower leg: (2) Failure of outpatient treatment: (3) Elevated serum creatinine: PLAN: Plan Left lower extremity cellulitis with failure of outpatient treatment -Culture from 11/26/2023 shows MRSA and Pseudomonas -Patient was on outpatient Cipro/Doxy/Keflex -Erythema seems to be improving -CRP is trending down and it appears that clinically she is improving however patient with ongoing intense pain in her left lower extremity -Check MRI of left foot as plain films are unremarkable -Continue Zosyn and vancomycin which were initiated emergency department -Repeat cultures -Keep foot elevated and dressing in place -Recent Dopplers negative -Consult wound nurse -Consult podiatry -Consult infectious disease Elevated serum creatinine on CKD stage IIIb -Baseline serum creatinine appears to run between 1.35 and 1.75 -Last 2 labs show 1.99-1.84 -Hold home Lasix for now -Reevaluate tomorrow for initiation of diuretics -Repeat a BMP Persistent atrial fibrillation Can currently in RVR but patient has not taken her home medications today -At baseline she is on diltiazem and metoprolol -Continue home diltiazem and metoprolol -Hold apixaban for now in case any debridement is required and restart once okay with podiatry Chronic anemia -Hemoglobin is stable at 10.9 -Baseline appears to run between 10 and 11 -Monitor Essential hypertension/hyperlipidemia/chronic HFpEF secondary to diastolic dysfunction -Lasix on hold due to mild serum creatinine elevation and reevaluate tomorrow for reinitiation -Continue home diltiazem -Continue home Entresto -Continue home metoprolol -Continue home statin History of pleural effusion -Has previously required multiple thoracenteses -07/2023 had thorascopic left pleurodesis at [facility] [place] Hypothyroidism -Continue home levothyroxine History of tobacco abuse -Remote -Continue ongoing cessation Urinary incontinence -Continue home mirabegron DVT prophylaxis -Subcu heparin until can reinitiate Eliquis CODE STATUS -DNR CCA with no intubation as identified at the time of admission Charges/Coding Visit Charges Inpatient E&M: 02317 Init Hosp L2
[2023-12-02 14:57] LABS: Red Blood Cells-Urine 0 SEEN /hpf (0-5)
[2023-12-02 14:59] LABS: Color, Urine Yellow (Yellow); Glucose, Dipstick Normal (Normal); Ketone-Dipstick Negative (Negative); Leukocyte Esterase-Dipstick Negative /ul (Negative); Nitrite-Dipstick Negative (Negative); Occult Blood-Urine Negative /ul (Negative); Protein-Dipstick 100 mg/dl (Negative); Specific Gravity, Urine 1.025 (1.002-1.030); Urine Bilirubin Dipstick Negative (Negative); Urine Clarity Clear (Clear); Urine Urobilinogen Normal (Normal)
[2023-12-02 15:09] LABS: Bacteria 1+ /hpf (None Seen); Squamous Epithelial Cells - UA 0-5 SEEN /hpf (5-10); White Blood Cells 0-5 SEEN /hpf (0-5)
[2023-12-02 15:11] LABS: Hyaline Cast 0-5 SEEN /lpf (0-5)
[2023-12-02 15:12] LABS: Mucous, Urine 1+ /hpf (<or=2+)
[2023-12-02] MEDS: Vancomycin HCl 1,750 MG in 0.9% Normal Saline (500mL Bag) 500 ML 250 MG IV (15:39)
[2023-12-02] MEDS: Metoprolol(XL)Succ 100 MG Tablet PO (18:11)
[2023-12-02 19:25] LABS: Bedside Glucose 119 mg/dL (74-106)
[2023-12-02] MEDS: Potassium Chloride Oral Tablet 20 MEQ PO (20:16)
[2023-12-02] MEDS: Lactated Ringers 1,000 ML 100 ML IV (20:22)
--- NOTE | 2023-12-02 22:23 | PCM.RX.CS ---
Consult Antibiotic Management Pharmacy has been consulted to manage selected antibiotic: Vancomycin Type of Intervention Type of Consult: New start Suspected Infection Suspected Infection: Skin/Soft tissue Labs Labs: Sodium 141 mmol/L (136-145) 12/02/23 12:50 Potassium 3.5 mmol/L (3.5-5.1) 12/02/23 12:50 Chloride 105 mmol/L (98-107) 12/02/23 12:50 Carbon Dioxide 28.0 mmol/L (21.0-32.0) 12/02/23 12:50 Anion Gap 8 (5-15) 12/02/23 12:50 BUN 34 mg/dL (7-18) H 12/02/23 12:50 Creatinine 1.84 mg/dL (0.55-1.02) H 12/02/23 12:50 Est GFR (MDRD) Af Amer 34 mL/min (>60) L 12/02/23 12:50 Est GFR (MDRD) Non-Af 28 mL/min (>60) L 12/02/23 12:50 BUN/Creatinine Ratio 18.5 RATIO (10-20) 12/02/23 12:50 Glucose 158 mg/dL (74-106) H 12/02/23 12:50 Dosing Weight Weight used for dosin kg Estimated Creatinine Clearance Estimated Creatinine Clearance: 31 Goal Trough Goal Trough: 15-20 mcg/mL Pharmacy Plan for Drug Dosing Pharmacy Plan for Drug Dosing: Pharmacy Service will continue to monitor and adjust dosing as required. Follow-Up Labs Follow-Up Labs: Trough: Vancomycin Date/Time Labs Ordered Labs to be done on [date and time ordered]: 12/04/23 @1500
[2023-12-02] MEDS: Atorvastatin Calcium 80 MG Tablet PO (22:28)
[2023-12-02] MEDS: Insulin Lispro 100 UNIT/ML INSULN.PEN SC (22:28)
[2023-12-02] MEDS: Acetaminophen 500 MG Tablet 1000 MG PO (22:28)
[2023-12-02] MEDS: Vibegron 75 MG TABLET PO (22:28)
[2023-12-02] MEDS: Heparin Injection (Vial) 5,000 UNIT/ML VIAL 5000 UNIT SC (22:28)
[2023-12-02] MEDS: SACUBITRIL/VALSARTAN 49-51 MG TABLET 1 EACH PO (22:29)
[2023-12-03] VITALS (10 sets, daily range): BP systolic 102–117; BP diastolic 55–74; PULSE 66–124; RESP 16–20; TEMP 36.3–36.8; O2SAT 90–96
[2023-12-03 01:18] LABS: Bedside Glucose 187 mg/dL (74-106)
[2023-12-03] MEDS: Heparin Injection (Vial) 5,000 UNIT/ML VIAL 5000 UNIT SC ×3 (05:47→21:04)
[2023-12-03] MEDS: Acetaminophen 500 MG Tablet 1000 MG PO ×3 (05:49→21:05)
[2023-12-03] MEDS: Levothyroxine 50 MCG Tablet PO (05:50)
[2023-12-03] MEDS: Levothyroxine 100 MCG Tablet 200 MCG PO (05:50)
[2023-12-03] MEDS: Metoprolol Tartrate 100 MG Tablet PO ×2 (05:59→21:05)
[2023-12-03] MEDS: Piperacil/Tazobactam 3.375 GM in 0.9% Normal Saline (50mL MB+) 50 ML IV ×3 (06:27→21:06)
[2023-12-03] MEDS: 0.9% Saline Lock 10 ML Syringe IV (06:28)
--- NOTE | 2023-12-03 08:06 | WOUNDNOTE ---
wound photo: left dorsal foot
--- NOTE | 2023-12-03 08:06 | WOUNDNOTE ---
wound photo: left lower leg
--- NOTE | 2023-12-03 08:07 | WOUNDNOTE ---
wound photo: left plantar/medial foot
--- NOTE | 2023-12-03 08:07 | WOUNDNOTE ---
skin photo: right lower leg
[2023-12-03 08:10] LABS: Bedside Glucose 135 mg/dL (74-106)
[2023-12-03 08:19] LABS: Absolute Lymphocyte Count 0.76 X10^3/uL (0.83-4.51); Absolute Neutrophil Count 5.4 X10^3/uL (2.0-7.7); Basophil# 0.05 X10^3/uL; Basophil% 0.7 % (0-1); Eosinophil# 0.17 X10^3/uL; Eosinophils% 2.4 % (0-5); Hematocrit 33.4 % (37-47); Hemoglobin 9.9 g/dL (12.0-15.0); Lymphocyte # 0.76 X10^3/ul (0.83-4.51); Lymphocyte % 10.6 % (19-41); Mean Corp Hgb Conc 29.6 g/dL (32-36); Mean Corpuscular Hgb 27.2 pg (27.0-32.0); Mean Corpuscular Volume 91.8 fL (81-99); Mean Platelet Vol. 10.3 fl (6.2-12.0); Monocyte# 0.66 X10^3/uL; Monocyte% 9.2 % (0-10); NRBC Flagged by Analyzer 0 % (0-5); Neutrophil # 5.42 X10^3/uL (2.7-7.7); Neutrophil % 75.8 % (47-70); Platelet Count 282 K/mm3 (150-450); RBC Distribution Width CV 15.7 % (11.6-14.6); RBC Distribution Width SD 53.1 fl (35.1-43.9); Red Blood Count 3.64 M/mm3 (4.2-5.4); White Blood Count 7.2 K/mm3 (4.4-11.0)
[2023-12-03] MEDS: Potassium Chloride Oral Tablet 20 MEQ PO ×2 (08:20→17:30)
[2023-12-03] MEDS: Iron Polysaccharide Complex 150 MG CAPSULE PO (08:20)
[2023-12-03 08:43] LABS: Hemoglobin A1c 8.2 % (3.8-5.6)
[2023-12-03 08:47] LABS: ALB/GLOB Ratio 0.6 RATIO (0.9-2.4); AST(SGOT) 9 U/L (15-37); Alanine Aminotransfer ALT/SGPT 15 U/L (13-56); Albumin, Serum 2.1 g/dL (3.2-5.0); Alkaline Phosphatase 82 U/L (45-117); Anion Gap 9 (5-15); BUN 35 mg/dL (7-18); Calcium,Total 8.9 mg/dL (8.5-10.1); Chloride 107 mmol/L (98-107); Creatinine, Serum 1.84 mg/dL (0.55-1.02); EST Glomerular Filtration Rate 28 mL/min (>60); Est Glom Filt Rate - Afr Amer 34 mL/min (>60); Estimated Creatinine Clearance 30.72 ml/min; Globulin 3.5 g/dL (2.2-4.2); Glucose 145 mg/dL (74-106); Phosphorus 3.9 mg/dL (2.5-4.9); Potassium 3.9 mmol/L (3.5-5.1); Protein, Total 5.6 g/dL (6.4-8.2); Sodium Level 142 mmol/L (136-145)
--- NOTE | 2023-12-03 10:03 | CON.PCM.ID_ITS ---
Assessment & Plan Assessment/Plan (1) IDDM (insulin dependent diabetes mellitus): (2) Cellulitis of left lower leg: PLAN: Outpt wound cx with MRSA and PsA. Had been on outpt doxy, cipro, and keflex. cont vanc/zosyn here. MRI showed no osteo. Podiatry to see. Will follow, thank you HPI Consult Data Date of Consult: 12/03/23 HPI Narrative Reason for Consultation: foot infection HPI Narrative: TONJA SÁNCHEZ, is a 83 F with h/o IDDM, copd, chf, presented 12/01 with one week progressive L foot pain, redness, and blistering. Developed some chills. Saw Dr. Douglas, wound cx sent, given doxy, cipro, keflex. Sx worsened, came to ED, admitted on vanc/zosyn, feeling a little better this AM. Full ROS performed and neg except as noted above. [facility] Medical History Diabetes Rheumatoid arthritis On home oxygen therapy Low iron Insulin dependent diabetes mellitus Wears glasses Wears dentures Cancer History of steroid therapy History of renal disease High cholesterol Restless legs Injury of back Back pain Dietary restriction Shortness of breath on exertion History of pain when walking History of edema History of echocardiogram History of stress test Cardiology follow-up encounter History of CHF (congestive heart failure) History of atrial fibrillation Hyperlipidemia Overactive bladder Hypothyroidism Diabetes mellitus Hypertension Chronic kidney disease, stage 3b Former smoker Atrial fibrillation Hypertension Chronic anticoagulation Skin cancer, basal cell Actinic keratosis Skin lesion Skin cancer Chronic diastolic (congestive) heart failure Longstanding persistent atrial fibrillation Diastolic dysfunction Secondary pulmonary arterial hypertension Non-rheumatic tricuspid valve insufficiency Stage 2 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 Right hip pain Disc degeneration, lumbar Fatigue UTI (urinary tract infection) Hypoxia Hypersomnia COPD (chronic obstructive pulmonary disease) Obesity Tobacco dependence in remission CKD (chronic kidney disease) stage 3, GFR 30-59 ml/min Breast cancer Essential (primary) hypertension BMI 39.0-39.9,adult Erosion of bladder suspension mesh SHAKIRA (stress urinary incontinence, female) Home Medications ?Medication ?Instructions ?Recorded ?Last Taken ?Type mirabegron 50 mg tablet,extended 50 mg PO QHS 11/14/22 Unknown History release 24 hr (Myrbetriq) metoprolol tartrate 100 mg tablet 100 mg PO BID BP/heart rate #180 04/05/23 Unknown Rx tabs diltiazem HCl 240 mg 240 mg PO DAILY heart #90 caps 04/26/23 Unknown Rx capsule,extended release 24 hr insulin degludec 100 unit/mL (3 40 unit subcut QHS blood sugar 07/19/23 Unknown History mL) subcutaneous pen levothyroxine 50 mcg tablet 50 mcg PO DAILY@0600 #0 tabs 08/02/23 Unknown Rx polysaccharide iron complex 150 mg 150 mg PO DAILY 30 days #30 caps 08/02/23 Unknown Rx iron capsule (Ferrex) potassium chloride 20 mEq 20 meq PO BIDCM 30 days #60 tabs 08/02/23 Unknown Rx tablet,extended release(part/cryst) apixaban 2.5 mg tablet (Eliquis) 2.5 mg PO DAILY blood thinner 08/20/23 Unknown History furosemide 40 mg tablet 40 mg PO BID 10/21/23 Unknown History sacubitril 49 mg-valsartan 51 mg 1 tab PO BID 10/21/23 Unknown History tablet (Entresto) cephalexin 500 mg capsule 500 mg PO Q6H 12/02/23 Unknown History ciprofloxacin HCl 250 mg tablet 250 mg PO BID 12/02/23 Unknown History doxycycline hyclate 100 mg tablet 100 mg PO BID 12/02/23 Unknown History insulin glargine U-300 conc 300 40 unit subcut DAILY 12/02/23 Unknown History unit/mL (3 mL) subcutaneous pen (Toujeo Max U-300 SoloStar) levothyroxine 200 mcg tablet 200 mcg PO DAILY 12/02/23 Unknown History rosuvastatin 40 mg tablet 40 mg PO QHS 12/02/23 Unknown History Allergy/AdvReac Type Severity Reaction Status Date / Time Sulfa (Sulfonamide Allergy PEELING Verified 12/02/23 12:02 Antibiotics) RASH Family History Mother Colon cancer Cancer skin, bladder Daughter Cancer Thyroid Sister CAD (coronary artery disease) Surgical History Hx of colonoscopy Hx of right cataract extraction Hx of left cataract extraction History of excision of lesion Hx of local excision of skin lesion History of cardioversion (03/20/19) History of hysterectomy History of partial mastectomy History of left heart catheterization (05/31/14) Social History household members: none housing: house current occupational status: retired Smoking Status: Former smoker how long ago did patient quit smokin, 2p/day second hand exposure: Yes alcohol intake: current alcohol intake frequency: holidays/special occasions only substance use type: does not use Physical Exam Const alert, oriented x3 and no apparent distress General Appearance: cooperative HEENT normocephalic and head/scalp atraumatic Eyes PERRL and EOMs intact bilaterally Neck supple and No nodes Resp normal air movement and clear to auscultation bilaterally Cardio regular rate and regular rhythm GI soft to palpation, non-tender and non-distended Extremity General Extremity: edema Skin Skin Narrative: reviewed wound photos Neuro CN's II-XII intact bilaterally Lab / Micro Data Attestation: I reviewed the patient's lab results. 12/03/23 07:30 12/03/23 07:30 Labs: Laboratory Results - last 24 hr 12/02/23 12:50: WBC 10.0, RBC 4.00 L, Hgb 10.9 L, Hct 36.2 L, MCV 90.5, MCH 27.3, MCHC 30.1 L, RDW Std Deviation 50.8 H, RDW Coeff of Sudha 15.4 H, Plt Count 304, MPV 10.1, Immature Gran % (Auto) 1.300 H, Neut % (Auto) 81.4 H, Lymph % (Auto) 8.2 L, Cache % (Auto) 7.0, Eos % (Auto) 1.4, Baso % (Auto) 0.7, Absolute Neuts (auto) 8.1 H, Absolute Lymphs (auto) 0.82 L, Nucleated RBC % 0, ESR 24, PT 14.8, INR 1.2, APTT 27.2, Sodium 141, Potassium 3.5, Chloride 105, Carbon Dioxide 28.0, Anion Gap 8, BUN 34 H, Creatinine 1.84 H, Estim Creat Clear Calc 30.59, Est GFR (MDRD) Af Amer 34 L, Est GFR (MDRD) Non-Af 28 L, BUN/Creatinine Ratio 18.5, Glucose 158 H, Lactic Acid 1.3, Calcium 8.9, Total Bilirubin 0.30, A ST 12 L, ALT 22, Alkaline Phosphatase 92, C-React Prot Ext Range 60.60 H, Total Protein 6.1 L, Albumin 2.3 L, Globulin 3.8, Albumin/Globulin Ratio 0.6 L 12/02/23 14:53: Urine Color Yellow, Urine Clarity Clear, Urine pH 5.0, Ur Specific [place] 1.025, Urine Protein 100 H, Urine Glucose (UA) Normal, Urine Ketones Negative, Urine Occult Blood Negative, Urine Nitrite Negative, Urine Bilirubin Negative, Urine Urobilinogen Normal, Ur Leukocyte Esterase Negative, Urine RBC 0 SEEN, Urine WBC 0-5 SEEN, Ur Squamous Epith Cells 0-5 SEEN, Urine Bacteria 1+, Hyaline Casts 0-5 SEEN, Urine Mucus 1+ 12/02/23 18:55: POC Glucose 119 H 12/02/23 22:22: POC Glucose 187 H 12/03/23 06:30: POC Glucose 135 H 12/03/23 07:30: WBC 7.2, RBC 3.64 L, Hgb 9.9 L, Hct 33.4 L, MCV 91.8, MCH 27.2, MCHC 29.6 L, RDW Std Deviation 53.1 H, RDW Coeff of Sudha 15.7 H, Plt Count 282, MPV 10.3, Immature Gran % (Auto) 1.300 H, Neut % (Auto) 75.8 H, Lymph % (Auto) 10.6 L, Cache % (Auto) 9.2, Eos % (Auto) 2.4, Baso % (Auto) 0.7, Absolute Neuts (auto) 5.4, Absolute Lymphs (auto) 0.76 L, Nucleated RBC % 0, Sodium 142, Potassium 3.9, Chloride 107, Carbon Dioxide 26.0, Anion Gap 9, BUN 35 H, C reatinine 1.84 H, Estim Creat Clear Calc 30.72, Est GFR (MDRD) Af Amer 34 L, Est GFR (MDRD) Non-Af 28 L, BUN/Creatinine Ratio 19.0, Glucose 145 H, Hemoglobin A1c 8.2 H, Calcium 8.9, Phosphorus 3.9, Magnesium 2.0, Total Bilirubin 0.30, AST 9 L , ALT 15, Alkaline Phosphatase 82, Total Protein 5.6 L, Albumin 2.1 L, Globulin 3.5, Albumin/Globulin Ratio 0.6 L Imaging Radiology Impression Foot X-Ray 12/02/23 13:15 IMPRESSION: Diffuse soft tissue swelling. Plantar spur. Electronically Signed: Huey Gomez MD at 14:09 EDT , Lower Extremity MRI 12/02/23 14:47 IMPRESSION: Soft tissue swelling. Arthritic change. No evidence of osteomyelitis. Electronically Signed: Tres Reynolds MD at 19:41 EDT ,
--- NOTE | 2023-12-03 10:35 | CASEMGMT ---
Addendum entered by Lorna Segura 12/03/23 12:11: 1205-Private duty list given to SW to present to pt at this time. Addendum entered by Lorna Segura 12/03/23 12:11: Pt aware that [facility] will come out to see her in her home. Addendum entered by Lorna Segura 12/03/23 11:24: Received tc from Michelle, they did have a referral to start pt today for SN, PT, OT and CLERICAL SECRETARY. [place]. TC to 's office, spoke with Corrina REICH, she states HHC can start prior to pt coming into the office since already had ordered the [facility]. Updated Michelle at [facility]. Addendum entered by Lorna Segura 12/03/23 11:18: TC to [place], verified pt oxygen. Pt states that she can have a portable tank brought in upon [place]. TC to Michelle at [facility] to verify if a referral had been made by , will await returned call. Original Note: FLETCHER UGARTE Assessment: Face to Face with pt for initial transition planning/care coordination assessment. FLETCHER UGARTE introduced self and role at [facility], pt voices understanding and consents to assessment. Pt is A&O x4 and answers all questions appropriately at this time. Pt sitting up in bed in no distress with oxygen on. Care providers, pharmacy, and demographics verified/updated. Admitting Dx: L foot cellulitis Strata Score: 2 PCP:Misael Specialists:STEPHY, cardio; Satnam, pod; Frank, nephro; Timo, pulm Preferred Pharmacy: [facility] Insurance: MCR, C[employer] Prescription Benefit: yes LNOK: zay Monreal; Marleny Belbrittny, dtr Living Arrangements: Pt lives alone in a two story home with no steps to enter but with 11 to get to kitchen once in the home with a rail. Pt reports she is I in ADLs. Her dtr phones groceries in and they are delivered to her home. Pt does own laundry. Pt denies concerns at home. Transportation: Pt drives self. She states she cannot park very far as she has a walker to get out of the car. DME:walker, pox, oxygen through [employer] with portability, BGM and insulin with sufficient supplies HHC/SNF: Pt has had [facility] in the past and denies SNF stays. Pt states no concerns with going home at time of dc. Pt states was performing her dressing changes and he set her up with [facility] HH, they were supposed to come today. Pt is agreeable with continuing [facility] HHC upon dc from the hospital and denies need for a list of other options. Pt is interested in a private duty list for housekeeping tasks. Pt states no further concerns/needs. CM to follow. Advised pt to ask CM if any further question/concerns/needs arise, voices understanding. Pt Goal: Home with [facility] Plan: Home with [facility], provide private duty list Jose BYNUM CM
[2023-12-03] MEDS: dilTIAZem CD 240 MG Capsule PO (10:37)
[2023-12-03] MEDS: SACUBITRIL/VALSARTAN 49-51 MG TABLET 1 EACH PO ×2 (10:37→21:17)
[2023-12-03] MEDS: Insulin Glargine-YFGN 100 UNIT/ML Pen 40 UNIT SC (10:38)
--- NOTE | 2023-12-03 11:22 | PCM.PN.HOSP ---
Reason for Visit Reason for Visit: Diagnoses Cellulitis of left lower limb (12/02/23) Other specified abnormal findings of blood chemistry (12/02/23) Other specified health status (12/02/23) Subjective Subjective Saw patient at bedside this morning. Patient was mildly fatigued appearing but otherwise sitting up comfortably in bed in no acute distress. Her left leg just been wrapped by wound care prior to my encounter with her. She states that her leg feels less painful and swollen today compared to yesterday. She denies any fevers or chills. Has not gotten out of bed yet this morning to walk on it. No other new concerns today. Objective Data Objective Data Vital Signs: Vital Signs Temp Pulse Resp BP Pulse Ox O2 Del Method O2 Flow Rate 98.2 F 101 H 16 111/69 94 Nasal Cannula 2 12/03/23 08:26 12/03/23 08:26 12/03/23 08:26 12/03/23 08:26 12/03/23 08:26 12/03/23 10:54 12/03/23 10:54 Oxygen Flow Rate (L/min) 2 Oxygen Delivery Method Nasal Cannula Weight: 117.934 kg Body Mass Index (BMI) 39.5 Intake & Output: Intake and Output for Last 24 Hours 12/01/23 12/02/23 12/03/23 23:59 23:59 23:59 Intake Total 833.33 / 933.33 250 / 250 Output Total 125 / 125 Balance 833.33 / 933.33 125 / 125 Lab / Micro Data 12/03/23 07:30 12/03/23 07:30 Labs: Laboratory Results - last 24 hr 12/02/23 12:50: WBC 10.0, RBC 4.00 L, Hgb 10.9 L, Hct 36.2 L, MCV 90.5, MCH 27.3, MCHC 30.1 L, RDW Std Deviation 50.8 H, RDW Coeff of Sudha 15.4 H, Plt Count 304, MPV 10.1, Immature Gran % (Auto) 1.300 H, Neut % (Auto) 81.4 H, Lymph % (Auto) 8.2 L, [place] % (Auto) 7.0, Eos % (Auto) 1.4, Baso % (Auto) 0.7, Absolute Neuts (auto) 8.1 H, Absolute Lymphs (auto) 0.82 L, Nucleated RBC % 0, ESR 24, PT 14.8, INR 1.2, APTT 27.2, Sodium 141, Potassium 3.5, Chloride 105, Carbon Dioxide 28.0, Anion Gap 8, BUN 34 H, Creatinine 1.84 H, Estim Creat Clear Calc 30.59, Est GFR (MDRD) Af Amer 34 L, Est GFR (MDRD) Non-Af 28 L, BUN/Creatinine Ratio 18.5, Glucose 158 H, Lactic Acid 1.3, Calcium 8.9, Total Bilirubin 0.30, AST 12 L, ALT 22, Alkaline Phosphatase 92, C-React Prot Ext Range 60.60 H, Total Protein 6.1 L, Albumin 2.3 L, Globulin 3.8, Albumin/Globulin Ratio 0.6 L 12/02/23 14:53: Urine Color Yellow, Urine Clarity Clear, Urine pH 5.0, Ur Specific [place] 1.025, Urine Protein 100 H, Urine Glucose (UA) Normal, Urine Ketones Negative, Urine Occult Blood Negative, Urine Nitrite Negative, Urine Bilirubin Negative, Urine Urobilinogen Normal, Ur Leukocyte Esterase Negative, Urine RBC 0 SEEN, Urine WBC 0-5 SEEN, Ur Squamous Epith Cells 0-5 SEEN, Urine Bacteria 1+, Hyaline Casts 0-5 SEEN, Urine Mucus 1+ 12/02/23 18:55: POC Glucose 119 H 12/02/23 22:22: POC Glucose 187 H 12/03/23 06:30: POC Glucose 135 H 12/03/23 07:30: WBC 7.2, RBC 3.64 L, Hgb 9.9 L, Hct 33.4 L, MCV 91.8, MCH 27.2, MCHC 29.6 L, RDW Std Deviation 53.1 H, RDW Coeff of Sudha 15.7 H, Plt Count 282, MPV 10.3, Immature Gran % (Auto) 1.300 H, Neut % (Auto) 75.8 H, Lymph % (Auto) 10.6 L, [place] % (Auto) 9.2, Eos % (Auto) 2.4, Baso % (Auto) 0.7, Absolute Neuts (auto) 5.4, Absolute Lymphs (auto) 0.76 L, Nucleated RBC % 0, Sodium 142, Potassium 3.9, Chloride 107, Carbon Dioxide 26.0, Anion Gap 9, BUN 35 H, Creatinine 1.84 H, Estim Creat Clear Calc 30.72, Est GFR (MDRD) Af Amer 34 L, Est GFR (MDRD) Non-Af 28 L, BUN/Creatinine Ratio 19.0, Glucose 145 H, Hemoglobin A1c 8.2 H, Calcium 8.9, Phosphorus 3.9, Magnesium 2.0, Total Bilirubin 0.30, AST 9 L, ALT 15, Alkaline Phosphatase 82, Total Protein 5.6 L, Albumin 2.1 L, Globulin 3.5, Albumin/Globulin Ratio 0.6 L Radiography Diagnostic Testing: Radiology Impression Foot X-Ray 12/02/23 13:15 IMPRESSION: Diffuse soft tissue swelling. Plantar spur. Electronically Signed: Huey Gomez MD at 14:09 EDT , Lower Extremity MRI 12/02/23 14:47 IMPRESSION: Soft tissue swelling. Arthritic change. No evidence of osteomyelitis. Electronically Signed: Tres Reynolds MD at 19:41 EDT , Physical Exam Const alert, oriented x3 and no apparent distress Constitutional Narrative: Elderly female, obese, mildly fatigued appearing, otherwise sitting up comfortably in bed, conversing normally, in no acute distress. General Appearance: cooperative and comfortable HEENT normocephalic, head/scalp atraumatic, hearing grossly normal bilaterally, nasal mucous membranes and turbinates normal and moist oral mucous membranes Eyes PERRL, EOMs intact bilaterally and conjunctivae normal Neck full ROM Chest inspection of chest normal Resp normal respiratory effort, normal air movement, no use of accessory muscles and clear to auscultation bilaterally Cardio regular rate, regular rhythm, no murmurs and peripheral pulses 2+ throughout GI normal to inspection, nondistended, normoactive bowel sounds, soft to palpation, non-tender and non-distended Back/Spine normal ROM Extremity Extremity Narrative: Left leg wrapped with Inderjit wrap from knee down to base of toes. No tenderness to palpation. Neuro no focal motor deficits and no sensory deficits noted Speech: speech normal Psych mental status grossly normal Assessment & Plan Assessment/Plan (1) Cellulitis of left lower limb: (2) Failure of outpatient treatment: PLAN: Plan Patient is an 83-year-old female who presented [facility] ED on 12/02/2023 with worsening left lower extremity cellulitis. 1. Left lower extremity cellulitis with failure of outpatient treatment ? Podiatry, infectious disease and wound care following. Culture from 11/25 shows MRSA and Pseudomonas. Patient was on outpatient Cipro/Doxy/Keflex and erythema seem to be improving with CRP trending down, but patient reported significant worsening pain that caused her to come in. MRI left leg on 12/01 showed soft tissue swelling but no evidence of osteomyelitis. Will continue IV vancomycin and Zosyn for now. Lower extremity dressed with Inderjit wrap on 12/02; per podiatry, will leave dressing intact until 12/04 and reevaluate then to ensure no additional imaging is required. Okay for weightbearing to left lower extremity, should use walker for assistance. 2. Elevated serum creatinine on CKD stage IIIb ? Creatinine 1.84 on admit, stable at 1.8 on hospital day 2. Recent baseline appears to be around 1.4-1.7, but notably last 2 labs recently showed creatinine 1.8 and 1.9. Has had adequate urine output since admission. Follow-up daily BMP and if stable, we will plan to reinitiate home diuretic tomorrow. 3. Persistent A-fib ? Was in A-fib with RVR on admit but had not taken her home medications and this was likely worsened by her infection as noted above. Became rate controlled on home medications. Continue home diltiazem and metoprolol. Will hold home Eliquis for now in case of need for procedure, resume once okay with podiatry. 4. Mild acute on chronic debility ? PT/OT/case management following. Recently followed with [facility] home health care and is agreeable to restarting this on discharge. 5. Type 2 diabetes mellitus ? Continue home long-acting insulin 40 units at night and continue sliding scale insulin with meals while inpatient, adjust as needed. Chronic medical conditions: ? Obesity: BMI 39 on admit. Complicates hospital course, care and prognosis. ? Chronic anemia: Hemoglobin stable at baseline around 10-11. ? Hypertension, hyperlipidemia, chronic HFpEF with diastolic dysfunction: Continue home diltiazem, Entresto, metoprolol and statin. Holding home Lasix for now, restart when able. ? History of pleural effusion: Has previously required multiple thoracentesis. Had thorascopic left pleurodesis done at [facility] in July 2023. ? Hypothyroidism: Continue home Synthroid. ? History of tobacco abuse: Remote. Continue ongoing cessation. ? Urinary incontinence: Continue home mirabegron. DVT prophylaxis: Subcu heparin until Eliquis can be restarted CODE STATUS: DNR CCA, DNI Expected disposition: Home with home health care, 2 to 3 days Total clinical time spent by myself addressing the patient's medical issues, reviewing all the data, and collaborating with patient's care team: 35 minutes. Charges/Coding Visit Charges Inpatient E&M: 17838 Subs Hosp L2
[2023-12-03] MEDS: Insulin Lispro 100 UNIT/ML INSULN.PEN SC ×2 (11:58→21:17)
[2023-12-03 12:19] LABS: Bedside Glucose 206 mg/dL (74-106)
--- NOTE | 2023-12-03 12:29 | PCM.CONS.GEN ---
Assessment & Plan Assessment/Plan (1) Cellulitis of left lower limb: PLAN: Exam performed. Reviewed vital signs, lab results, previous provider notes. Left lower extremity demonstrates cellulitis in setting of fluid overload. Today we dressed site with Adaptic gauze and a double layer [place] compression wrap to left lower extremity. I discussed elevating the left lower extremity above the level of heart to allow for edema management as well. Patient is receiving IV antibiotics in the form of vancomycin and Zosyn. Cellulitis improving. Will leave left lower extremity dressing intact until 12/05/2023 at which we will reevaluate the site and sure no additional imaging is required Patient can weight-bear to left lower extremity. If she needs additional stability can applied surgical shoe to the left lower extremity. Patient used should use walker for assistance. Will reevaluate on 12/05/2023. HPI Consult Data Date of Consult: 12/03/23 HPI Narrative HPI Narrative: TONJA SÁNCHEZ, is a 83 F who presents for treatment of left lower extremity cellulitis. Patient failed outpatient oral antibiotics per primary care physician. Patient has history of chronic bilateral lower extremity swelling. Patient is developed blistering redness warmth to left lower extremity. Patient admitted for IV antibiotics through emergency department due to worsening of condition despite oral antibiotic management. No other complaints at this time. Patient does note improvement since initiation of IV antibiotics overnight. [facility] Medical History Diabetes Rheumatoid arthritis On home oxygen therapy Low iron Insulin dependent diabetes mellitus Wears glasses Wears dentures Cancer History of steroid therapy History of renal disease High cholesterol Restless legs Injury of back Back pain Dietary restriction Shortness of breath on exertion History of pain when walking History of edema History of echocardiogram History of stress test Cardiology follow-up encounter History of CHF (congestive heart failure) History of atrial fibrillation Hyperlipidemia Overactive bladder Hypothyroidism Diabetes mellitus Hypertension Chronic kidney disease, stage 3b Former smoker Atrial fibrillation Hypertension Chronic anticoagulation Skin cancer, basal cell Actinic keratosis Skin lesion Skin cancer Chronic diastolic (congestive) heart failure Longstanding persistent atrial fibrillation Diastolic dysfunction Secondary pulmonary arterial hypertension Non-rheumatic tricuspid valve insufficiency Stage 2 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 Right hip pain Disc degeneration, lumbar Fatigue UTI (urinary tract infection) Hypoxia Hypersomnia COPD (chronic obstructive pulmonary disease) Obesity Tobacco dependence in remission CKD (chronic kidney disease) stage 3, GFR 30-59 ml/min Breast cancer Essential (primary) hypertension BMI 39.0-39.9,adult Erosion of bladder suspension mesh SHAKIRA (stress urinary incontinence, female) Home Medications ?Medication ?Instructions ?Recorded ?Last Taken ?Type mirabegron 50 mg tablet,extended 50 mg PO QHS 11/14/22 Unknown History release 24 hr (Myrbetriq) metoprolol tartrate 100 mg tablet 100 mg PO BID BP/heart rate #180 04/05/23 Unknown Rx tabs diltiazem HCl 240 mg 240 mg PO DAILY heart #90 caps 04/26/23 Unknown Rx capsule,extended release 24 hr insulin degludec 100 unit/mL (3 40 unit subcut QHS blood sugar 07/19/23 Unknown History mL) subcutaneous pen levothyroxine 50 mcg tablet 50 mcg PO DAILY@0600 #0 tabs 08/02/23 Unknown Rx polysaccharide iron complex 150 mg 150 mg PO DAILY 30 days #30 caps 08/02/23 Unknown Rx iron capsule (Ferrex) potassium chloride 20 mEq 20 meq PO BIDCM 30 days #60 tabs 08/02/23 Unknown Rx tablet,extended release(part/cryst) apixaban 2.5 mg tablet (Eliquis) 2.5 mg PO DAILY blood thinner 08/20/23 Unknown History furosemide 40 mg tablet 40 mg PO BID 10/21/23 Unknown History sacubitril 49 mg-valsartan 51 mg 1 tab PO BID 10/21/23 Unknown History tablet (Entresto) cephalexin 500 mg capsule 500 mg PO Q6H 12/02/23 Unknown History ciprofloxacin HCl 250 mg tablet 250 mg PO BID 12/02/23 Unknown History doxycycline hyclate 100 mg tablet 100 mg PO BID 12/02/23 Unknown History insulin glargine U-300 conc 300 40 unit subcut DAILY 12/02/23 Unknown History unit/mL (3 mL) subcutaneous pen (Toujeo Max U-300 SoloStar) levothyroxine 200 mcg tablet 200 mcg PO DAILY 12/02/23 Unknown History rosuvastatin 40 mg tablet 40 mg PO QHS 12/02/23 Unknown History Allergy/AdvReac Type Severity Reaction Status Date / Time Sulfa (Sulfonamide Allergy PEELING Verified 12/02/23 12:02 Antibiotics) RASH Family History Mother Colon cancer Cancer skin, bladder Daughter Cancer Thyroid Sister CAD (coronary artery disease) Surgical History Hx of colonoscopy Hx of right cataract extraction Hx of left cataract extraction History of excision of lesion Hx of local excision of skin lesion History of cardioversion (03/20/19) History of hysterectomy History of partial mastectomy History of left heart catheterization (05/31/14) Social History household members: none housing: house current occupational status: retired Smoking Status: Former smoker how long ago did patient quit smokin, 2p/day second hand exposure: Yes alcohol intake: current alcohol intake frequency: holidays/special occasions only substance use type: does not use ROS Constitutional Constitutional: Denies chills, daytime sleepiness or headache(s) Eyes Eyes: Denies acute decrease in peripheral vision, change in eye color or change in vision ENT HEENT: Denies bleeding gums, change in voice or epistaxis Cardiovascular Cardiovascular: Denies abdominal edema, abdominal pain or chest pain at rest Respiratory/Chest Respiratory/Chest: Denies change in phlegm color, chest congestion or dusky skin Gastrointestinal Gastrointestinal: Denies belching, bloating or constipation Physical Exam Narrative Vascular: Dorsalis pedis posterior tibial pulses palpable 2 out of 4 to bilateral lower extremity. +2 pitting edema noted to left lower extremity. Erythema edema warmth left lower extremity. Neurologic: Light touch protective sensation intact bilateral feet. No evidence of hyperreflexia noted. Dermatologic: Multiple vesicles along the medial longitudinal arch dorsal forefoot as well as anterior left lower extremity with diffuse erythema and edema extending from the forefoot to to knee. Scant serous drainage noted. Focal increase in warmth left lower extremity. No other signs of infection noted. Musculoskeletal: No signs DVT bilateral lower extremity muscular strength full to bilateral lower extremity compartments. No gross deformity contributing to wound formation noted. Lab / Micro Data 12/03/23 07:30 12/03/23 07:30 Labs: Laboratory Results - last 24 hr 12/02/23 12:50: WBC 10.0, RBC 4.00 L, Hgb 10.9 L, Hct 36.2 L, MCV 90.5, MCH 27.3, MCHC 30.1 L, RDW Std Deviation 50.8 H, RDW Coeff of Sudha 15.4 H, Plt Count 304, MPV 10.1, Immature Gran % (Auto) 1.300 H, Neut % (Auto) 81.4 H, Lymph % (Auto) 8.2 L, [place] % (Auto) 7.0, Eos % (Auto) 1.4, Baso % (Auto) 0.7, Absolute Neuts (auto) 8.1 H, Absolute Lymphs (auto) 0.82 L, Nucleated RBC % 0, ESR 24, PT 14.8, INR 1.2, APTT 27.2, Sodium 141, Potassium 3.5, Chloride 105, Carbon Dioxide 28.0, Anion Gap 8, BUN 34 H, Creatinine 1.84 H, Estim Creat Clear Calc 30.59, Est GFR (MDRD) Af Amer 34 L, Est GFR (MDRD) Non-Af 28 L, BUN/Creatinine Ratio 18.5, Glucose 158 H, Lactic Acid 1.3, Calcium 8.9, Total Bilirubin 0.30, AST 12 L, ALT 22, Alkaline Phosphatase 92, C-React Prot Ext Range 60.60 H, Total Protein 6.1 L, Albumin 2.3 L, Globulin 3.8, Albumin/Globulin Ratio 0.6 L 12/02/23 14:53: Urine Color Yellow, Urine Clarity Clear, Urine pH 5.0, Ur Specific [place] 1.025, Urine Protein 100 H, Urine Glucose (UA) Normal, Urine Ketones Negative, Urine Occult Blood Negative, Urine Nitrite Negative, Urine Bilirubin Negative, Urine Urobilinogen Normal, Ur Leukocyte Esterase Negative, Urine RBC 0 SEEN, Urine WBC 0-5 SEEN, Ur Squamous Epith Cells 0-5 SEEN, Urine Bacteria 1+, Hyaline Casts 0-5 SEEN, Urine Mucus 1+ 12/02/23 18:55: POC Glucose 119 H 12/02/23 22:22: POC Glucose 187 H 12/03/23 06:30: POC Glucose 135 H 12/03/23 07:30: WBC 7.2, RBC 3.64 L, Hgb 9.9 L, Hct 33.4 L, MCV 91.8, MCH 27.2, MCHC 29.6 L, RDW Std Deviation 53.1 H, RDW Coeff of Sudha 15.7 H, Plt Count 282, MPV 10.3, Immature Gran % (Auto) 1.300 H, Neut % (Auto) 75.8 H, Lymph % (Auto) 10.6 L, [place] % (Auto) 9.2, Eos % (Auto) 2.4, Baso % (Auto) 0.7, Absolute Neuts (auto) 5.4, Absolute Lymphs (auto) 0.76 L, Nucleated RBC % 0, Sodium 142, Potassium 3.9, Chloride 107, Carbon Dioxide 26.0, Anion Gap 9, BUN 35 H, Creatinine 1.84 H, Estim Creat Clear Calc 30.72, Est GFR (MDRD) Af Amer 34 L, Est GFR (MDRD) Non-Af 28 L, BUN/Creatinine Ratio 19.0, Glucose 145 H, Hemoglobin A1c 8.2 H, Calcium 8.9, Phosphorus 3.9, Magnesium 2.0, Total Bilirubin 0.30, AST 9 L, ALT 15, Alkaline Phosphatase 82, Total Protein 5.6 L, Albumin 2.1 L, Globulin 3.5, Albumin/Globulin Ratio 0.6 L 12/03/23 11:57: POC Glucose 206 H Imaging Radiology Impression Foot X-Ray 12/02/23 13:15 IMPRESSION: Diffuse soft tissue swelling. Plantar spur. Electronically Signed: Huey Gomez MD at 14:09 EDT , Lower Extremity MRI 12/02/23 14:47 IMPRESSION: Soft tissue swelling. Arthritic change. No evidence of osteomyelitis. Electronically Signed: Tres Reynolds MD at 19:41 EDT ,
[2023-12-03 17:18] LABS: Bedside Glucose 114 mg/dL (74-106)
[2023-12-03] MEDS: Vancomycin HCl 1,500 MG in 0.9% Normal Saline (500mL Bag) 500 ML 250 MG IV (17:28)
[2023-12-03] MEDS: Atorvastatin Calcium 80 MG Tablet PO (21:05)
[2023-12-03] MEDS: Vibegron 75 MG TABLET PO (21:06)
[2023-12-03 22:49] LABS: Bedside Glucose 225 mg/dL (74-106)
[2023-12-04] VITALS (8 sets, daily range): BP systolic 110–139; BP diastolic 54–80; PULSE 68–98; RESP 17–18; TEMP 36.5–36.7; O2SAT 93–100
[2023-12-04] MEDS: Piperacil/Tazobactam 3.375 GM in 0.9% Normal Saline (50mL MB+) 50 ML IV ×3 (05:30→22:03)
[2023-12-04] MEDS: Levothyroxine 50 MCG Tablet PO (06:29)
[2023-12-04] MEDS: Acetaminophen 500 MG Tablet 1000 MG PO ×3 (06:29→22:02)
[2023-12-04] MEDS: Heparin Injection (Vial) 5,000 UNIT/ML VIAL 5000 UNIT SC ×3 (06:29→22:03)
[2023-12-04] MEDS: Levothyroxine 100 MCG Tablet 200 MCG PO (06:29)
[2023-12-04 06:53] LABS: Bedside Glucose 138 mg/dL (74-106)
[2023-12-04] MEDS: Potassium Chloride Oral Tablet 20 MEQ PO ×2 (09:03→16:21)
[2023-12-04] MEDS: dilTIAZem CD 240 MG Capsule PO (09:03)
[2023-12-04] MEDS: Iron Polysaccharide Complex 150 MG CAPSULE PO (09:03)
[2023-12-04] MEDS: Metoprolol Tartrate 100 MG Tablet PO ×2 (09:04→22:02)
[2023-12-04] MEDS: Furosemide 40 MG Tablet PO ×2 (09:04→16:21)
--- NOTE | 2023-12-04 11:01 | PN.HOSP_ITS ---
Reason for Visit Reason for Visit: Diagnoses Cellulitis of left lower limb (12/02/23) Other specified abnormal findings of blood chemistry (12/02/23) Other specified health status (12/02/23) Subjective Subjective Saw patient at bedside this morning. Patient was sitting up comfortably in bedside chair, in no acute distress. Left leg remains wrapped today. She denies any new pain or discomfort the leg and has been tolerating weightbearing fairly well. No fevers or chills. No new concerns today. Objective Data Objective Data Vital Signs: Vital Signs Temp Pulse Resp BP Pulse Ox O2 Del Method O2 Flow Rate 97.9 F 90 18 110/58 L 95 Room Air 3 12/04/23 09:15 12/04/23 09:15 12/04/23 09:15 12/04/23 09:15 12/04/23 09:15 12/04/23 09:15 12/04/23 09:29 Oxygen Flow Rate (L/min) 3 Oxygen Delivery Method Room Air Weight: 117.934 kg Body Mass Index (BMI) 39.5 Intake & Output: Intake and Output for Last 24 Hours 12/02/23 12/03/23 12/04/23 23:59 23:59 23:59 Intake Total 833.33 / 933.33 1851.67 / 1851.67 150 / 150 Output Total 125 / 125 275 / 275 Balance 833.33 / 933.33 1726.67 / 1726.67 -125 / -125 Lab / Micro Data 12/03/23 07:30 12/03/23 07:30 Labs: Laboratory Results - last 24 hr 12/03/23 11:57: POC Glucose 206 H 12/03/23 16:58: POC Glucose 114 H 12/03/23 21:00: POC Glucose 225 H 12/04/23 06:32: POC Glucose 138 H Micro: Microbiology 12/02/23 12:50 Blood Culture (Wb) - Anticubital Left Blood Culture - Preliminary No growth in 48 hours. 12/02/23 07:45 Wound - Leg, Left Gram Stain - Final Physical Exam Const alert, oriented x3 and no apparent distress Constitutional Narrative: Elderly female, obese, energy improved from admission, sitting up comfortably in bed, conversing normally, in no acute distress. General Appearance: cooperative and comfortable HEENT normocephalic, head/scalp atraumatic, hearing grossly normal bilaterally, nasal mucous membranes and turbinates normal and moist oral mucous membranes Eyes PERRL, EOMs intact bilaterally and conjunctivae normal Neck full ROM Chest inspection of chest normal Resp normal respiratory effort, normal air movement, no use of accessory muscles and clear to auscultation bilaterally Cardio no murmurs and peripheral pulses 2+ throughout Cardio Narrative: A-fib, rate controlled. GI normal to inspection, nondistended, normoactive bowel sounds, soft to palpation, non-tender and non-distended Back/Spine normal ROM Extremity Extremity Narrative: Left leg wrapped with Inderjit wrap from knee down to base of toes. No tenderness to palpation. Stable. Neuro no focal motor deficits and no sensory deficits noted Speech: speech normal Psych mental status grossly normal Assessment & Plan Assessment/Plan (1) Cellulitis of left lower limb: (2) Failure of outpatient treatment: PLAN: Plan Patient is an 83-year-old female who presented [facility] ED on 12/02/2023 with worsening left lower extremity cellulitis. 1. Left lower extremity cellulitis with failure of outpatient treatment ? Podiatry, infectious disease and wound care following. Culture from 11/25 shows MRSA and Pseudomonas. Patient was on outpatient Cipro/Doxy/Keflex and erythema seem to be improving with CRP trending down, but patient reported significant worsening pain that caused her to come in. MRI left leg on 12/01 showed soft tissue swelling but no evidence of osteomyelitis. Will continue IV vancomycin and Zosyn for now. Lower extremity dressed with Inderjit wrap on 12/02; per podiatry, will leave dressing intact until 12/04 and reevaluate then to ensure no additional imaging is required. Okay for weightbearing to left lower extremity, should use walker for assistance. If cleared by podiatry tomorrow, should be okay for discharge home on p.o. antibiotics. 2. Elevated serum creatinine on CKD stage IIIb ? Creatinine 1.84 on admit, stable at 1.8 on hospital day 2. Recent baseline appears to be around 1.4-1.7, but notably last 2 labs recently showed creatinine 1.8 and 1.9. Has had adequate urine output since admission. Restarted home Lasix on 12/03. Monitor BMP daily. 3. Persistent A-fib ? Was in A-fib with RVR on admit but had not taken her home medications and this was likely worsened by her infection as noted above. Became rate controlled on home medications. Continue home diltiazem and metoprolol. Will hold home Eliquis for now in case of need for procedure, resume once okay with podiatry. 4. Mild acute on chronic debility ? PT/OT/case management following. Recently followed with [facility] home health care and is agreeable to restarting this on discharge. 5. Type 2 diabetes mellitus ? Continue home long-acting insulin 40 units at night and continue sliding scale insulin with meals while inpatient, adjust as needed. Chronic medical conditions: ? Obesity: BMI 39 on admit. Complicates hospital course, care and prognosis. ? Chronic anemia: Hemoglobin stable at baseline around 10-11. ? Hypertension, hyperlipidemia, chronic HFpEF with diastolic dysfunction: Continue home diltiazem, Entresto, metoprolol and statin. Holding home Lasix for now, restart when able. ? History of pleural effusion: Has previously required multiple thoracentesis. Had thorascopic left pleurodesis done at [facility] in July 2023. ? Hypothyroidism: Continue home Synthroid. ? History of tobacco abuse: Remote. Continue ongoing cessation. ? Urinary incontinence: Continue home mirabegron. DVT prophylaxis: Subcu heparin until Eliquis can be restarted CODE STATUS: DNR CCA, DNI Expected disposition: Home with home health care, 1 to 2 days Total clinical time spent by myself addressing the patient's medical issues, reviewing all the data, and collaborating with patient's care team: 35 minutes. Charges/Coding Visit Charges Inpatient E&M: 12921 Subs Hosp L2
--- NOTE | 2023-12-04 11:22 | NURSING ---
spoke w/compa in Rx to please send pt Entresto dose
[2023-12-04 11:28] LABS: Bedside Glucose 161 mg/dL (74-106)
[2023-12-04 12:00] LABS: Hematocrit 33.4 % (37-47); Mean Corp Hgb Conc 29.9 g/dL (32-36); Mean Corpuscular Hgb 27.5 pg (27.0-32.0); Mean Corpuscular Volume 91.8 fL (81-99); Platelet Count 280 K/mm3 (150-450); RBC Distribution Width CV 15.7 % (11.6-14.6); RBC Distribution Width SD 53.4 fl (35.1-43.9); Red Blood Count 3.64 M/mm3 (4.2-5.4); White Blood Count 7.3 K/mm3 (4.4-11.0)
[2023-12-04 12:47] LABS: Anion Gap 7 (5-15); BUN 40 mg/dL (7-18); BUN/Creat Ratio 20.8 RATIO (10-20); Calcium,Total 8.8 mg/dL (8.5-10.1); Chloride 108 mmol/L (98-107); Creatinine, Serum 1.92 mg/dL (0.55-1.02); EST Glomerular Filtration Rate 26 mL/min (>60); Est Glom Filt Rate - Afr Amer 32 mL/min (>60); Estimated Creatinine Clearance 29.44 ml/min; Glucose 158 mg/dL (74-106); Potassium 4.6 mmol/L (3.5-5.1); Sodium Level 141 mmol/L (136-145)
[2023-12-04] MEDS: SACUBITRIL/VALSARTAN 49-51 MG TABLET 1 EACH PO ×2 (13:38→22:01)
[2023-12-04] MEDS: Vancomycin Trough/Random Due 1 LAB MC (13:39)
[2023-12-04] MEDS: Insulin Lispro 100 UNIT/ML INSULN.PEN SC ×3 (13:40→22:08)
[2023-12-04] MEDS: Insulin Glargine-YFGN 100 UNIT/ML Pen 40 UNIT SC (13:41)
--- NOTE | 2023-12-04 15:07 | NURSING ---
called lab re:order for vanc trough @ 1500 that is still ordered and not pending-they will call traffic coordinator and tell her to draw pt felicia
--- NOTE | 2023-12-04 15:25 | PCM.PN.ID ---
Physical Exam Narrative Feeling better, no fever, leg less sore Const alert and no apparent distress Resp normal air movement and clear to auscultation bilaterally Cardio regular rate and regular rhythm GI soft to palpation, non-tender and non-distended Skin Skin Narrative: BLE wrapped ID ID: Route of nutrition/ use of supplements: [] Nutritional Intake: [] IV Site: [] Sidhu Catheter: [] Assessment & Plan Assessment/Plan (1) IDDM (insulin dependent diabetes mellitus): (2) Cellulitis of left lower leg: PLAN: Outpt wound cx with MRSA and PsA. Had been on outpt doxy, cipro, and keflex. cont vanc/zosyn here. MRI showed no osteo. Podiatry following. Will follow
[2023-12-04 15:46] LABS: Vancomycin, Trough Level 18.8 ug/mL (5.0-15.0)
--- NOTE | 2023-12-04 15:50 | NURSING ---
spoke w/lab to get vanc level and with leander in Rx -he is aware of 18.8 level and said pt will stay on same dose but dose not available on unit at this time
--- NOTE | 2023-12-04 15:59 | PCM.RX.CS ---
Consult Antibiotic Management Pharmacy has been consulted to manage selected antibiotic: Vancomycin Type of Intervention Type of Consult: Follow-up Suspected Infection Suspected Infection: Skin/Soft tissue Prior Doses of Antibiotics Prior Doses of Antibiotics Received/Current Regimen: 1750MG IV X 1 INITIAL DOSE, THEN 1500MG IV Q24H. Labs Labs: Sodium 141 mmol/L (136-145) 12/04/23 11:46 Potassium 4.6 mmol/L (3.5-5.1) 12/04/23 11:46 Chloride 108 mmol/L (98-107) H 12/04/23 11:46 Carbon Dioxide 26.0 mmol/L (21.0-32.0) 12/04/23 11:46 Anion Gap 7 (5-15) 12/04/23 11:46 BUN 40 mg/dL (7-18) H 12/04/23 11:46 Creatinine 1.92 mg/dL (0.55-1.02) H 12/04/23 11:46 Est GFR (MDRD) Af Amer 32 mL/min (>60) L 12/04/23 11:46 Est GFR (MDRD) Non-Af 26 mL/min (>60) L 12/04/23 11:46 BUN/Creatinine Ratio 20.8 RATIO (10-20) H 12/04/23 11:46 Glucose 158 mg/dL (74-106) H 12/04/23 11:46 Vancomycin Trough 18.8 ug/mL (5.0-15.0) H 12/04/23 15:06 Microbiology Microbiology: Microbiology 12/02/23 07:45 Wound - Leg, Left Gram Stain - Final 12/02/23 07:45 Wound - Leg, Left Wound Culture - Preliminary Gram Positive Cocci 12/02/23 12:50 Blood Culture (Wb) - Anticubital Left Blood Culture - Preliminary No growth in 48 hours. Dosing Weight Weight used for dosin kg Estimated Creatinine Clearance Estimated Creatinine Clearance: 29.4ML/MIN Goal Trough Goal Trough: 15-20 mcg/mL Pharmacy Plan for Drug Dosing Pharmacy Plan for Drug Dosing: Trough today 18.8 and in therapeutic range. Recommend continuing same dose with new trough before another 3rd dose. Pharmacy Service will continue to monitor and adjust dosing as required. Follow-Up Labs Follow-Up Labs: Trough: Vancomycin (12.04.23 1500)
[2023-12-04] MEDS: Vancomycin HCl 1,500 MG in 0.9% Normal Saline (500mL Bag) 500 ML 250 MG IV (16:17)
[2023-12-04 16:40] LABS: Bedside Glucose 169 mg/dL (74-106)
[2023-12-04] MEDS: Atorvastatin Calcium 80 MG Tablet PO (22:02)
[2023-12-04] MEDS: Senna/Docusate Sodium 1 Tablet 2 TABLET PO (22:02)
[2023-12-04] MEDS: Vibegron 75 MG TABLET PO (22:02)
[2023-12-04 22:29] LABS: Bedside Glucose 198 mg/dL (74-106)
[2023-12-04] MEDS: Menthol/Lanolin/Calamine/Znox 113 GM Tube 1 APPLIC TOPICAL (22:55)
[2023-12-05] MEDS: Piperacil/Tazobactam 3.375 GM in 0.9% Normal Saline (50mL MB+) 50 ML IV (05:28)
[2023-12-05 05:37] VITALS: BP 124/63; PULSE 62; RESP 16; TEMP 36.5; O2SAT 95
[2023-12-05] MEDS: Levothyroxine 100 MCG Tablet 200 MCG PO (05:42)
[2023-12-05] MEDS: Levothyroxine 50 MCG Tablet PO (05:43)
[2023-12-05] MEDS: Heparin Injection (Vial) 5,000 UNIT/ML VIAL 5000 UNIT SC (06:10)
[2023-12-05] MEDS: Acetaminophen 500 MG Tablet 1000 MG PO (06:11)
[2023-12-05] MEDS: Insulin Lispro 100 UNIT/ML INSULN.PEN SC (06:42)
[2023-12-05 06:43] LABS: Bedside Glucose 170 mg/dL (74-106)
[2023-12-05 10:06] VITALS: PULSE 66
[2023-12-05] MEDS: Metoprolol Tartrate 100 MG Tablet PO (10:06)
[2023-12-05] MEDS: SACUBITRIL/VALSARTAN 49-51 MG TABLET 1 EACH PO (10:06)
[2023-12-05] MEDS: Potassium Chloride Oral Tablet 20 MEQ PO (10:07)
[2023-12-05] MEDS: Iron Polysaccharide Complex 150 MG CAPSULE PO (10:07)
[2023-12-05] MEDS: Insulin Glargine-YFGN 100 UNIT/ML Pen 40 UNIT SC (10:08)
[2023-12-05] MEDS: dilTIAZem CD 240 MG Capsule PO (10:08)
[2023-12-05] MEDS: Furosemide 40 MG Tablet PO (10:08)
[2023-12-05] MEDS: Menthol/Lanolin/Calamine/Znox 113 GM Tube 1 APPLIC TOPICAL (10:09)
--- NOTE | 2023-12-05 11:43 | PCM.PROGNOTE ---
Subjective Subjective 83-year-old female seen for left lower extremity cellulitis. Significant improvement noted today with regards to pain and swelling and redness. Objective Data Objective Data Vital Signs: Vital Signs Temp Pulse Resp BP Pulse Ox O2 Del Method O2 Flow Rate 97.7 F L 66 16 124/63 H 95 Nasal Cannula 3 12/05/23 05:37 12/05/23 10:06 12/05/23 05:37 12/05/23 05:37 12/05/23 05:37 12/05/23 08:25 12/05/23 08:25 Oxygen Flow Rate (L/min) 3 Oxygen Delivery Method Nasal Cannula Weight: 117.934 kg Body Mass Index (BMI) 39.5 Intake & Output: Intake and Output for Last 24 Hours 12/03/23 12/04/23 12/05/23 23:59 23:59 23:59 Intake Total 1851.67 / 1851.67 2399 / 2399 50 / 50 Output Total 125 / 125 475 / 475 500 / 500 Balance 1726.67 / 1726.67 1924 / 1924 -450 / -450 Lab / Micro Data 12/04/23 11:46 12/04/23 11:46 Labs: Laboratory Results - last 24 hr 12/04/23 11:46: WBC 7.3, RBC 3.64 L, Hgb 10.0 L, Hct 33.4 L, MCV 91.8, MCH 27.5, MCHC 29.9 L, RDW Std Deviation 53.4 H, RDW Coeff of Sudha 15.7 H, Plt Count 280, MPV 10.0, Sodium 141, Potassium 4.6, Chloride 108 H, Carbon Dioxide 26.0, Anion Gap 7, BUN 40 H, Creatinine 1.92 H, Estim Creat Clear Calc 29.44, Est GFR (MDRD) Af Amer 32 L, Est GFR (MDRD) Non-Af 26 L, BUN/Creatinine Ratio 20.8 H, Glucose 158 H, Calcium 8.8 12/04/23 15:06: Vancomycin Trough 18.8 H 12/04/23 16:20: POC Glucose 169 H 12/04/23 22:08: POC Glucose 198 H 12/05/23 06:25: POC Glucose 170 H Micro: Microbiology 12/02/23 07:45 Wound - Leg, Left Gram Stain - Final 12/02/23 07:45 Wound - Leg, Left Wound Culture - Preliminary Coag Negative Staph 12/02/23 12:50 Blood Culture (Wb) - Anticubital Left Blood Culture - Preliminary No growth in 48 hours. Physical Exam Narrative Vascular: Dorsalis pedis posterior tibial pulses palpable 2 out of 4 to bilateral lower extremity. +2 pitting edema noted to left lower extremity. Erythema edema warmth left lower extremity. Neurologic: Light touch protective sensation intact bilateral feet. No evidence of hyperreflexia noted. Dermatologic: M improved edema to left lower extremity with significantly improved erythema and warmth. Resolving vesicles to medial left arch and anterior left leg. Musculoskeletal: No signs DVT bilateral lower extremity muscular strength full to bilateral lower extremity compartments. No gross deformity contributing to wound formation noted. Assessment & Plan Assessment/Plan (1) Cellulitis of left lower limb: PLAN: Exam performed. Cellulitis significantly improved today to left lower extremity. Recommend DC today on oral antibiotics per culture and sensitivity. Will plan for home health care dressing changes 2-3 times a week consisting of Betadine Adaptic 4 x 4's Kerlix and a multilayer compression wrap to left lower extremity. Right lower extremity should be dressed with a multilayer compression wrap as well. Patient can be weightbearing as tolerated in surgical shoe on left assisted by walker. Patient will follow-up in 1 week in the wound care center.
[2023-12-05 12:08] LABS: Bedside Glucose 139 mg/dL (74-106)
--- NOTE | 2023-12-05 13:16 | DCINST_ITS ---
Discharge Instructions Diet Discharge Diet: No restrictions Activity Discharge Activity: No Restrictions Weight Bearing Status: Weight bearing as tolerated (Weightbearing as tolerated in surgical shoe on left assisted by walker) Dressing / Incision Additional Dressing/Incision Instructions:: Dressing changes 2-3 times a week consisting of Betadine Adaptic 4 x 4's Kerlix and a multilayer compression wrap to left lower extremity. Right lower extremity should be dressed with a multilayer compression wrap as well. Follow Up Care Test Results: Test results from this visit will be discussed in further detail at your follow- up appointment, if applicable. Discharge Plan Admission Admit Date/Time: 12/02/23 14:38 Primary Reason for Your Visit: left leg infection Attending Provider: Amaury Pena Primary Care Provider: Alexy Douglas Chi Consulting Providers: Bebeto Corado; Javier Bedoya; Ct Marie Instructions Additional Instructions / Restrictions: Please take 4 more days of ciprofloxacin and doxycycline to complete a full course of antibiotics for your left leg infection. The home health care team will help with dressing changes of your legs going forward. Please wear your surgical shoe on left for now and use your walker for assistance with ambulation. Follow-up in 1 week in the wound care center. Discharge Orders/Prescriptions Prescriptions: Continued furosemide 40 mg tablet 40 mg PO BID metoprolol tartrate 100 mg tablet 100 mg PO BID Qty: 180 3RF diltiazem HCl 240 mg capsule,extended release 24hr 240 mg PO DAILY Qty: 90 3RF Entresto 49-51 mg tablet 1 tab PO BID mirabegron [Myrbetriq] 50 mg tablet extended release 24 hr 50 mg PO QHS levothyroxine 200 mcg tablet 200 mcg PO DAILY rosuvastatin 40 mg tablet 40 mg PO QHS insulin glargine U-300 conc [Toujeo Max U-300 SoloStar] 300 unit/mL (3 mL) insulin pen 40 unit subcut DAILY ciprofloxacin HCl 250 mg tablet 250 mg PO BID 4 Days Qty: 8 0RF doxycycline hyclate 100 mg tablet 100 mg PO BID 4 Days Qty: 8 0RF insulin degludec 100 unit/mL (3 mL) insulin pen 40 unit SC QHS polysaccharide iron complex [Ferrex 150] 150 mg iron Capsule 150 mg PO DAILY 30 Days Qty: 30 0RF potassium chloride 20 mEq Tablet,Er Particles/Crystals 20 meq PO BIDCM 30 Days Qty: 60 0RF levothyroxine 50 mcg Tablet 50 mcg PO DAILY@0600 Qty: 0 0RF Eliquis 2.5 mg tablet 2.5 mg PO DAILY Discontinued cephalexin 500 mg capsule 500 mg PO Q6H Referrals / Follow Up: Javier Bedoya DPM [Med Staff - Active Staff] - (schedule appointment for 1 week after discharge) Alexy Douglas Chi, MD [Primary Care Provider] - Disposition Disposition (needs filled in before D/C Order can be placed): Home Health Service
--- NOTE | 2023-12-05 13:16 | PCM.DC.SUM ---
Providers Date of Admission: 12/02/23 Date of Discharge: 12/05/23 Primary Care Physician: Dr. 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 Comment: Consult: Podiatry Routine Consulting Provider: Javier Bedoya Reason for Consult: Cellulitis Foot EMERGENT Consult: No Notified: Yes Date Notified: 12/02/23 Time Notified: 18:38 Method of Notification: Text Reason For Visit: L FOOT CELLULITIS Diagnosis Discharge Diagnosis (1) Cellulitis of left lower limb: Status: Acute Code(s): L03.116 - Cellulitis of left lower limb Medications at Discharge Home Medications mirabegron 50 mg tablet,extended release 24 hr (Myrbetriq) 50 mg PO QHS 11/14/22 metoprolol tartrate 100 mg tablet 100 mg PO BID BP/heart rate #180 tabs 04/05/23 diltiazem HCl 240 mg capsule,extended release 24 hr 240 mg PO DAILY heart #90 caps 04/26/23 insulin degludec 100 unit/mL (3 mL) subcutaneous pen 40 unit subcut QHS blood sugar 07/19/23 levothyroxine 50 mcg tablet 50 mcg PO DAILY@0600 #0 tabs 08/02/23 polysaccharide iron complex 150 mg iron capsule (Ferrex) 150 mg PO DAILY 30 days #30 caps 08/02/23 potassium chloride 20 mEq tablet,extended release(part/cryst) 20 meq PO BIDCM 30 days #60 tabs 08/02/23 apixaban 2.5 mg tablet (Eliquis) 2.5 mg PO DAILY blood thinner 08/20/23 furosemide 40 mg tablet 40 mg PO BID 10/21/23 sacubitril 49 mg-valsartan 51 mg tablet (Entresto) 1 tab PO BID 10/21/23 insulin glargine U-300 conc 300 unit/mL (3 mL) subcutaneous pen (Toujeo Max U-300 SoloStar) 40 unit subcut DAILY 12/02/23 levothyroxine 200 mcg tablet 200 mcg PO DAILY 12/02/23 rosuvastatin 40 mg tablet 40 mg PO QHS 12/02/23 ciprofloxacin HCl 250 mg tablet 250 mg PO BID 4 days #8 tabs 12/05/23 doxycycline hyclate 100 mg tablet 100 mg PO BID 4 days #8 tabs 12/05/23 Hospital Course Operations None Procedures EKG and - (Left foot x-ray, left lower extremity MRI) Summary of Care Provided Minutes Spent on Discharge: 35 Hospital Course: Patient is an 83-year-old female who presented [facility] ED on 12/02/2023 with worsening left lower extremity cellulitis. Hospital course as noted below. Patient discharged home with home health care in stable condition on 12/04. 1. Left lower extremity cellulitis with failure of outpatient treatment ? Podiatry, infectious disease and wound care followed. Culture from 11/25 shows MRSA and Pseudomonas. Patient was on outpatient Cipro/Doxy/Keflex and erythema seem to be improving with CRP trending down, but patient reported significant worsening pain that caused her to come in. MRI left leg on 12/01 showed soft tissue swelling but no evidence of osteomyelitis. Treated with IV vancomycin and Zosyn while inpatient with good improvement. Had Inderjit wrap in place during admission; podiatry reevaluated on 12/04 and noted significant improvement. Per podiatry, will need dressing changes with home health care post discharge with follow-up at wound center 1 week postdischarge. Okay for weightbearing with boot on left foot and recommended she use walker for assistance. Per ID, okay for discharge on p.o. ciprofloxacin and doxycycline for 4 more days. Discharged home in stable condition on 12/04. 2. Elevated serum creatinine on CKD stage IIIb ? Creatinine 1.84 on admit, stable at 1.8 on hospital day 2. Recent baseline appears to be around 1.4-1.7, but notably last 2 labs recently showed creatinine 1.8 and 1.9. Has had adequate urine output since admission. Restarted home Lasix on 12/03. Recommend repeat BMP in 5 to 7 days to ensure creatinine remains stable. 3. Persistent A-fib ? Was in A-fib with RVR on admit but had not taken her home medications and this was likely worsened by her infection as noted above. Became rate controlled on home medications. Continue home diltiazem and metoprolol. Held home Eliquis during hospitalization in case of need for procedure, resumed on discharge. 4. Mild acute on chronic debility ? PT/OT/case management followed. Recently followed with [facility] home health care and okay to restart this on discharge. 5. Type 2 diabetes mellitus ? Treated with home long-acting insulin 40 units at night and continue sliding scale insulin with meals while inpatient with good blood sugar control. Resume home 40 units of long-acting insulin on discharge. Chronic medical conditions: ? Obesity: BMI 39 on admit. Complicated hospital course, care and prognosis. ? Chronic anemia: Hemoglobin stable at baseline around 10-11. ? Hypertension, hyperlipidemia, chronic HFpEF with diastolic dysfunction: Continue home diltiazem, Entresto, metoprolol, statin and Lasix. ? History of pleural effusion: Has previously required multiple thoracentesis. Had thorascopic left pleurodesis done at [facility] in July 2023. ? Hypothyroidism: Continue home Synthroid. ? History of tobacco abuse: Remote. Continue ongoing cessation. ? Urinary incontinence: Continue home mirabegron. Total clinical time spent by myself addressing the patient's medical issues, reviewing all the data, and collaborating with patient's care team: 35 minutes. Physical Exam Const alert, oriented x3 and no apparent distress Constitutional Narrative: Elderly female, obese, energy improved from admission, sitting up comfortably in bed, conversing normally, in no acute distress. Stable. General Appearance: cooperative and comfortable HEENT normocephalic, head/scalp atraumatic, hearing grossly normal bilaterally, nasal mucous membranes and turbinates normal and moist oral mucous membranes Eyes PERRL, EOMs intact bilaterally and conjunctivae normal Neck full ROM Chest inspection of chest normal Resp normal respiratory effort, normal air movement, no use of accessory muscles and clear to auscultation bilaterally Cardio no murmurs and peripheral pulses 2+ throughout Cardio Narrative: A-fib, rate controlled. GI normal to inspection, nondistended, normoactive bowel sounds, soft to palpation, non-tender and non-distended Back/Spine normal ROM Extremity Extremity Narrative: Left leg wrapped with Inderjit wrap from knee down to base of toes. No tenderness to palpation. Stable. Neuro no focal motor deficits and no sensory deficits noted Speech: speech normal Psych mental status grossly normal Weight / BMI Weight Weight: 117.934 kg Body Mass Index (BMI) 39.5 ABG / Lab / Microbiology Data 12/04/23 11:46 12/04/23 11:46 Laboratory: Laboratory Results - last 24 hr 12/04/23 15:06: Vancomycin Trough 18.8 H 12/04/23 16:20: POC Glucose 169 H 12/04/23 22:08: POC Glucose 198 H 12/05/23 06:25: POC Glucose 170 H 12/05/23 11:48: POC Glucose 139 H Microbiology: Microbiology 12/02/23 07:45 Wound - Leg, Left Gram Stain - Final 12/02/23 07:45 Wound - Leg, Left Wound Culture - Preliminary Coag Negative Staph 12/02/23 12:50 Blood Culture (Wb) - Anticubital Left Blood Culture - Preliminary No growth in 48 hours. Meaningful Use Info Meaningful Use Meaningful Use Diagnoses (Choose all that apply): None applicable Ischemic Stroke Statin Dosing Therapy Reference: STATIN DOSE THERAPY REFERENCE: * Patients > 75 years receive moderate or high dose statin therapy. * Patients 75 years or YOUNGER should receive HIGH intensity statin dose unless contraindicated. You will be required to document reason for non-treatment if statin daily dose does not meet guidelines. HIGH DOSE STATIN THERAPY DAILY Atorvastatin > than or = to 40 mg Rosuvastatin > than or = to 20 mg Amlodipine + Atorvastatin > than or = to 2.5/40 mg Ezetimibe + Simvastatin 10/80 mg Simvastatin 80mg Discharge Plan Admission Admit Date/Time: 12/02/23 14:38 Primary Reason for Your Visit: left leg infection Attending Provider: Amaury Pena Primary Care Provider: Alexy Douglas Chi Consulting Providers: Bebeto Corado; Javier Bedoya; Ct Marie Instructions Additional Instructions / Restrictions: Please take 4 more days of ciprofloxacin and doxycycline to complete a full course of antibiotics for your left leg infection. The home health care team will help with dressing changes of your legs going forward. Please wear your surgical shoe on left for now and use your walker for assistance with ambulation. Follow-up in 1 week in the wound care center. Discharge Orders/Prescriptions Prescriptions: Continued furosemide 40 mg tablet 40 mg PO BID metoprolol tartrate 100 mg tablet 100 mg PO BID Qty: 180 3RF diltiazem HCl 240 mg capsule,extended release 24hr 240 mg PO DAILY Qty: 90 3RF Entresto 49-51 mg tablet 1 tab PO BID mirabegron [Myrbetriq] 50 mg tablet extended release 24 hr 50 mg PO QHS levothyroxine 200 mcg tablet 200 mcg PO DAILY rosuvastatin 40 mg tablet 40 mg PO QHS insulin glargine U-300 conc [Toujeo Max U-300 SoloStar] 300 unit/mL (3 mL) insulin pen 40 unit subcut DAILY ciprofloxacin HCl 250 mg tablet 250 mg PO BID 4 Days Qty: 8 0RF doxycycline hyclate 100 mg tablet 100 mg PO BID 4 Days Qty: 8 0RF insulin degludec 100 unit/mL (3 mL) insulin pen 40 unit SC QHS polysaccharide iron complex [Ferrex 150] 150 mg iron Capsule 150 mg PO DAILY 30 Days Qty: 30 0RF potassium chloride 20 mEq Tablet,Er Particles/Crystals 20 meq PO BIDCM 30 Days Qty: 60 0RF levothyroxine 50 mcg Tablet 50 mcg PO DAILY@0600 Qty: 0 0RF Eliquis 2.5 mg tablet 2.5 mg PO DAILY Discontinued cephalexin 500 mg capsule 500 mg PO Q6H Referrals / Follow Up: Javier Bedoya DPM [Med Staff - Active Staff] - (schedule appointment for 1 week after discharge) Alexy Douglas Chi, MD [Primary Care Provider] - Disposition Disposition (needs filled in before D/C Order can be placed): Home Health Service Charges/Coding Visit Charges Inpatient E&M: 17574 Disch Hosp >30min
--- NOTE | 2023-12-05 13:37 | CASEMGMT ---
Michelle at [facility] aware that pt will dc today. [facility] will see pt tomorrow. RN CM into pt room, pt is aware that C will be out tomorrow. Pt denies any further needs at this time.
--- NOTE | 2023-12-05 13:51 | WOUNDNOTE ---
wound photo: left lower leg
--- NOTE | 2023-12-05 13:51 | WOUNDNOTE ---
wound photo: left foot
--- NOTE | 2023-12-05 13:52 | WOUNDNOTE ---
wound photo: left foot
--- NOTE | 2023-12-05 15:27 | PCM.PN.ID ---
Physical Exam Narrative Feeling better, d/c home today, no fever Const alert and no apparent distress General Appearance: cooperative Resp normal air movement and clear to auscultation bilaterally Cardio regular rate and regular rhythm GI soft to palpation, non-tender and non-distended Extremity General Extremity: edema Skin Skin Narrative: no new rash ID ID: Route of nutrition/ use of supplements: [] Nutritional Intake: [] IV Site: [] Sidhu Catheter: [] Assessment & Plan Assessment/Plan (1) IDDM (insulin dependent diabetes mellitus): (2) Cellulitis of left lower leg: PLAN: Outpt wound cx with MRSA and PsA. Had been on outpt doxy, cipro, and keflex. On vanc/zosyn here. MRI showed no osteo. Podiatry following. Ok for home po cipro/doxy, d/w primary Will follow
== END 2023-12-05 14:33 | disposition home health service (06) | DRG 603 ==
LOC: ED 13:57 → MS3 17:46
PROVIDERS: Admitting Provider Internal Medicine; Emergency Provider Emergency Medicine; PCP Family Medicine Geriatric Medicine; Referring Provider Internal Medicine; Visit Provider Hospitalist
DX: L03.116 Cellulitis of left lower limb (principal); I13.0 Hypertensive heart and chronic kidney disease with heart failure and stage 1 through stage 4 chronic kidney disease, or unspecified chronic kidney disease; I48.19 Other persistent atrial fibrillation; I50.32 Chronic diastolic (congestive) heart failure; E11.22 Type 2 diabetes mellitus with diabetic chronic kidney disease; B95.62 Methicillin resistant Staphylococcus aureus infection as the cause of diseases classified elsewhere; B96.5 Pseudomonas (aeruginosa) (mallei) (pseudomallei) as the cause of diseases classified elsewhere; N18.32 Chronic kidney disease, stage 3b; J44.9 Chronic obstructive pulmonary disease, unspecified; E03.9 Hypothyroidism, unspecified; D64.9 Anemia, unspecified; E66.9 Obesity, unspecified; Z79.4 Long term (current) use of insulin; E78.5 Hyperlipidemia, unspecified; Z66 Do not resuscitate; Z79.01 Long term (current) use of anticoagulants; Z87.891 Personal history of nicotine dependence; Z79.890 Hormone replacement therapy; Z68.39 Body mass index [BMI] 39.0-39.9, adult; R32 Unspecified urinary incontinence; Z85.3 Personal history of malignant neoplasm of breast
CPT/HCPCS: 36415; 73630; 73718; 80048; 80053; 80202; 81001; 82962; 83036; 83605; 83735; 84100; 85025; 85027; 85610; 85652; 85730; 86140; 87040; 87070; 87186; 87205; 93005; 94668; 97162; 97166; 97535; 97802; 99285; J7040; J7050; J7120; A4216; J2405

== ENCOUNTER → 2023-12-10 | Outpatient (CLI) | payer MEDICARE, OTHER, SELFPAY ==
[2023-12-10 17:08] LABS: Absolute Lymphocyte Count 0.94 X10^3/uL (0.83-4.51); Absolute Neutrophil Count 9.4 X10^3/uL (2.0-7.7); Basophil# 0.06 X10^3/uL; Basophil% 0.5 % (0-1); Eosinophil# 0.16 X10^3/uL; Eosinophils% 1.4 % (0-5); Hematocrit 35.4 % (37-47); Hemoglobin 10.5 g/dL (12.0-15.0); Lymphocyte # 0.94 X10^3/ul (0.83-4.51); Lymphocyte % 8.2 % (19-41); Mean Corp Hgb Conc 29.7 g/dL (32-36); Mean Corpuscular Hgb 26.9 pg (27.0-32.0); Mean Corpuscular Volume 90.8 fL (81-99); Monocyte# 0.77 X10^3/uL; Monocyte% 6.7 % (0-10); NRBC Flagged by Analyzer 0 % (0-5); Neutrophil # 9.36 X10^3/uL (2.7-7.7); Neutrophil % 82.1 % (47-70); Platelet Count 321 K/mm3 (150-450); RBC Distribution Width SD 53.2 fl (35.1-43.9); White Blood Count 11.4 K/mm3 (4.4-11.0)
[2023-12-10 17:31] LABS: ALB/GLOB Ratio 0.7 RATIO (0.9-2.4); AST(SGOT) 10 U/L (15-37); Alanine Aminotransfer ALT/SGPT 15 U/L (13-56); Albumin, Serum 2.5 g/dL (3.2-5.0); Alkaline Phosphatase 92 U/L (45-117); Anion Gap 4 (5-15); BUN 23 mg/dL (7-18); BUN/Creat Ratio 15.5 RATIO (10-20); Calcium,Total 9.2 mg/dL (8.5-10.1); Chloride 106 mmol/L (98-107); Creatinine, Serum 1.48 mg/dL (0.55-1.02); EST Glomerular Filtration Rate 36 mL/min (>60); Est Glom Filt Rate - Afr Amer 43 mL/min (>60); Globulin 3.6 g/dL (2.2-4.2); Glucose 181 mg/dL (74-106); Potassium 3.9 mmol/L (3.5-5.1); Protein, Total 6.1 g/dL (6.4-8.2); Sodium Level 142 mmol/L (136-145)
== END | disposition home or self-care (01) ==
LOC: POLAB3 16:39
PROVIDERS: PCP Family Medicine Geriatric Medicine; Visit Provider Family Medicine Geriatric Medicine
DX: I10 Essential (primary) hypertension (principal)
CPT/HCPCS: 36415; 80053; 85025

== ENCOUNTER → 2023-12-23 | Outpatient (CLI) | payer MEDICARE, OTHER, SELFPAY ==
[2023-12-23 12:15] VITALS: BP 117/84; PULSE 126; RESP 20; O2SAT 91
[2023-12-23] MEDS: Lidocaine 2% (20 ml mdv) 20 ML Vial INFILT (12:26)
[2023-12-23 12:30] VITALS: BP 142/70; PULSE 126; RESP 18; O2SAT 98
--- NOTE | 2023-12-23 12:35 | RAD_ITS ---
STUDY: X-RAY CHEST REASON FOR EXAM: Female, 83 years old. Post thora TECHNIQUE: AP inspiration and expiration views. COMPARISON: Comparison is made with prior study November 26, 2023. FINDINGS: The patient is status post right thoracentesis. No evidence of pneumothorax following the right thoracentesis. Surgical clips are seen in the right axilla. RAD/Chest Insp/Exp 2 View IMPRESSION: Status post right thoracentesis. No evidence of pneumothorax. Residual pleural-parenchymal changes seen at the left lung base. Electronically Signed: Huey Gomez MD at 13:32 EDT ,
--- NOTE | 2023-12-23 12:52 | US_ITS ---
PROCEDURE: ULTRASOUND GUIDED THORACENTESIS. DATE: December 23, 2023.. INDICATION: Female, 83 years old. Right pleural effusion PHYSICIAN: Huey Gomez M.D. PROCEDURE: The risks, benefits, and alternatives to the procedure were explained to the patient. The specific risks of bleeding, infection, and pneumothorax requiring chest tube insertion were discussed and accepted. Written informed consent was obtained. Ultrasonographic evaluation of the right lower pleural space was carried out. An adequate pocket was identified. The patient was placed in the sitting, upright position. The overlying skin was prepped and draped in sterile fashion. 1% lidocaine was administered subcutaneously for local anesthesia. Under ultrasound guidance, a 5 Beninese thoracentesis needle/catheter system was advanced into the right posterior lower pleural fluid collection. Approximately 470 mL of leigh-colored fluid was drained. The catheter was removed, and a sterile dressing was applied. The patient tolerated the procedure well. A chest x-ray was ordered. US/Thoracentesis W US IMPRESSION: Ultrasound-guided right thoracentesis. Electronically Signed: Huey Gomez MD at 13:41 EDT ,
== END | disposition home or self-care (01) ==
LOC: US 11:40
PROVIDERS: PCP Family Medicine Geriatric Medicine; Referring Provider Nurse Practitioner Acute Care; Visit Provider Nurse Practitioner Acute Care
DX: J90 Pleural effusion, not elsewhere classified (principal)
CPT/HCPCS: 32555; 71046

== ENCOUNTER 2023-12-26 11:32 | Inpatient (IN) | payer MEDICARE, OTHER, SELFPAY ==
[2023-12-26] VITALS (15 sets, daily range): BP systolic 112–158; BP diastolic 72–113; PULSE 50–142; RESP 19–28; TEMP 36.6–36.8; O2SAT 92–98; BMI 40.5; BMI 40.1
--- NOTE | 2023-12-26 11:53 | EKG12_ITS ---
Test Reason : DYSRHYTHMIA Blood Pressure : / mmHG Vent. Rate : 142 BPM Atrial Rate : 000 BPM P-R Int : 000 ms QRS Dur : 128 ms QT Int : 322 ms P-R-T Axes : 000 126 -06 degrees QTc Int : 495 ms Critical Test Result: High HR Atrial fibrillation with rapid ventricular response Right bundle branch block Abnormal ECG Confirmed by KATIE SELF, ISAÍAS ([id number]), editor city [place] ([id number]) on 12/27/2023 2:15:58 PM Referred By: TB Confirmed By:ISAÍAS WILSON MD
[2023-12-26] MEDS: Ipratropium/Albuterol Sulfate 3 ML AMPUL.NEB INHALATION (12:01)
[2023-12-26 12:14] LABS: Absolute Lymphocyte Count 0.77 X10^3/uL (0.83-4.51); Absolute Neutrophil Count 8.2 X10^3/uL (2.0-7.7); Basophil# 0.06 X10^3/uL; Basophil% 0.6 % (0-1); Eosinophil# 0.13 X10^3/uL; Eosinophils% 1.3 % (0-5); Hematocrit 37.1 % (37-47); Hemoglobin 10.8 g/dL (12.0-15.0); Lymphocyte # 0.77 X10^3/ul (0.83-4.51); Lymphocyte % 7.7 % (19-41); Mean Corp Hgb Conc 29.1 g/dL (32-36); Mean Corpuscular Hgb 26.7 pg (27.0-32.0); Mean Corpuscular Volume 91.6 fL (81-99); Mean Platelet Vol. 10.5 fl (6.2-12.0); NRBC Flagged by Analyzer 0 % (0-5); Neutrophil % 82.3 % (47-70); Platelet Count 299 K/mm3 (150-450); RBC Distribution Width CV 16.1 % (11.6-14.6); RBC Distribution Width SD 53.6 fl (35.1-43.9); Red Blood Count 4.05 M/mm3 (4.2-5.4)
--- NOTE | 2023-12-26 12:20 | RAD_ITS ---
STUDY: X-RAY CHEST REASON FOR EXAM: Female, 83 years old. sob TECHNIQUE: PA and lateral views of the chest. COMPARISON: 12/23/2023 FINDINGS: The lungs are clear and expanded. Small bilateral pleural effusions with bibasilar atelectasis. There is moderate cardiac enlargement. Normal mediastinum and binh. Normal visualized pulmonary arteries. Normal visualized aortic arch and descending thoracic aorta. Normal visualized thoracic spine. Normal visualized ribs, clavicles, and shoulders. There is no demonstrated abnormality of the visualized soft tissue structures of the upper abdomen. RAD/Chest PA and Lateral IMPRESSION: Small bilateral pleural effusions with bibasilar atelectasis. Cardiomegaly. Electronically Signed: Miguel Patterson MD at 12:41 EDT ,
[2023-12-26] MEDS: dilTIAZem CD 240 MG Capsule PO (12:30)
[2023-12-26] MEDS: Metoprolol Tartrate 100 MG Tablet PO ×2 (12:30→21:40)
[2023-12-26 12:31] LABS: ALB/GLOB Ratio 0.7 RATIO (0.9-2.4); AST(SGOT) 11 U/L (15-37); Alanine Aminotransfer ALT/SGPT 17 U/L (13-56); Albumin, Serum 2.6 g/dL (3.2-5.0); Alkaline Phosphatase 108 U/L (45-117); Anion Gap 5 (5-15); BUN 26 mg/dL (7-18); BUN/Creat Ratio 19.1 RATIO (10-20); Calcium,Total 9.4 mg/dL (8.5-10.1); Chloride 109 mmol/L (98-107); Creatinine, Serum 1.36 mg/dL (0.55-1.02); EST Glomerular Filtration Rate 39 mL/min (>60); Est Glom Filt Rate - Afr Amer 48 mL/min (>60); Estimated Creatinine Clearance 42.22 ml/min; Free T3 2.1 pg/mL (2.18-3.98); Globulin 3.8 g/dL (2.2-4.2); Glucose 139 mg/dL (74-106); Lipase 31 U/L (13-75); Potassium 4.3 mmol/L (3.5-5.1); Protein, Total 6.4 g/dL (6.4-8.2); Sodium Level 144 mmol/L (136-145); Thyroid Stim Hormone (TSH) 0.694 uIU/mL (0.358-3.740); Troponin-I HS 20 pg/mL (3.0-54.0)
[2023-12-26 12:49] LABS: BNP,B-Type NATRIURETIC PEPTIDE 569.8 pg/mL (0-100)
[2023-12-26 13:12] LABS: Red Blood Cells-Urine 0 SEEN /hpf (0-5)
[2023-12-26 13:19] LABS: Color, Urine Yellow (Yellow); Glucose, Dipstick 50 mg/dl (Normal); Ketone-Dipstick Negative (Negative); Leukocyte Esterase-Dipstick 100 /ul (Negative); Nitrite-Dipstick Positive (Negative); Occult Blood-Urine 10 /ul (Negative); Protein-Dipstick 500 mg/dl (Negative); Specific Gravity, Urine 1.025 (1.002-1.030); Urine Bilirubin Dipstick Negative (Negative); Urine Clarity Sl. Cloudy (Clear); Urine Urobilinogen Normal (Normal)
[2023-12-26 13:29] LABS: Squamous Epithelial Cells - UA 5-10 SEEN /hpf (5-10); White Blood Cells 5-10 SEEN /hpf (0-5)
[2023-12-26 13:30] LABS: Bacteria 2+ /hpf (None Seen); Mucous, Urine 1+ /hpf (<or=2+)
[2023-12-26] MEDS: Ceftriaxone 1 GM/50 ML BAG IV (14:12)
[2023-12-26 15:11] LABS: Bedside Glucose 124 mg/dL (74-106)
--- NOTE | 2023-12-26 16:39 | EX.ED.DYSGE1 ---
HPI History of Present Illness Chief Complaint: Shortness of Breath Narrative Narrative: Patient is a 83-year-old female with past medical history of CHF, diabetes, rheumatoid arthritis, hyperlipidemia, history atrial fibrillation anticoagulated on Eliquis, hypertension, COPD who presented to the emergency department with a chief complaint of shortness of breath. Patient states that ever since Saturday her thoracentesis she has not been feeling well has had progressive worsening shortness of breath. States that she does have at home oxygen that she wears as needed. She states that she has been having to wear her oxygen on a regular basis secondary to her shortness of breath. States that she was extremely short of breath today which prompted her to come here for the valuation management. Patient notes that she did not take her home medications this morning. Denies any recent contacts. [facility] Medical History Congestive heart failure (CHF) IDDM (insulin dependent diabetes mellitus) Diabetes Rheumatoid arthritis On home oxygen therapy Low iron Insulin dependent diabetes mellitus Wears glasses Wears dentures Cancer History of steroid therapy History of renal disease High cholesterol Restless legs Injury of back Back pain Dietary restriction Shortness of breath on exertion History of pain when walking History of edema History of echocardiogram History of stress test Cardiology follow-up encounter History of CHF (congestive heart failure) History of atrial fibrillation Hyperlipidemia Overactive bladder Hypothyroidism Diabetes mellitus Hypertension Chronic kidney disease, stage 3b Former smoker Atrial fibrillation Hypertension Chronic anticoagulation Skin cancer, basal cell Actinic keratosis Skin lesion Skin cancer Chronic diastolic (congestive) heart failure Longstanding persistent atrial fibrillation Diastolic dysfunction Secondary pulmonary arterial hypertension Non-rheumatic tricuspid valve insufficiency Stage 2 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 Right hip pain Disc degeneration, lumbar Fatigue UTI (urinary tract infection) Hypoxia Hypersomnia COPD (chronic obstructive pulmonary disease) Obesity Tobacco dependence in remission CKD (chronic kidney disease) stage 3, GFR 30-59 ml/min Breast cancer Essential (primary) hypertension BMI 39.0-39.9,adult Erosion of bladder suspension mesh SHAKIRA (stress urinary incontinence, female) Home Medications ?Medication ?Instructions ?Recorded ?Last Taken ?Type metoprolol tartrate 100 mg tablet 100 mg PO BID BP/heart rate #180 04/05/23 Unknown Rx tabs diltiazem HCl 240 mg 240 mg PO DAILY heart #90 caps 04/26/23 Unknown Rx capsule,extended release 24 hr levothyroxine 50 mcg tablet 50 mcg PO DAILY@0600 #0 tabs 08/02/23 Unknown Rx polysaccharide iron complex 150 mg 150 mg PO DAILY 30 days #30 caps 08/02/23 Unknown Rx iron capsule (Ferrex) potassium chloride 20 mEq 20 meq PO BIDCM 30 days #60 tabs 08/02/23 Unknown Rx tablet,extended release(part/cryst) apixaban 2.5 mg tablet (Eliquis) 2.5 mg PO DAILY blood thinner 08/20/23 Unknown History furosemide 40 mg tablet 40 mg PO BID 10/21/23 Unknown History sacubitril 49 mg-valsartan 51 mg 1 tab PO BID 10/21/23 Unknown History tablet (Entresto) levothyroxine 200 mcg tablet 200 mcg PO DAILY 12/02/23 Unknown History rosuvastatin 40 mg tablet 40 mg PO QHS 12/02/23 Unknown History cholecalciferol (vitamin D3) 25 25 mcg PO QDAY 12/20/23 Unknown History mcg (1,000 unit) capsule (Vitamin D3) glimepiride 1 mg tablet 1 mg PO QDAY 12/20/23 Unknown History insulin degludec 100 unit/mL (3 30 unit subcut DAILY 12/26/23 Unknown History mL) subcutaneous pen (Tresiba FlexTouch U-100 insulin) Allergy/AdvReac Type Severity Reaction Status Date / Time Sulfa (Sulfonamide Allergy PEELING Verified 12/26/23 11:35 Antibiotics) RASH Family History Mother Colon cancer Cancer skin, bladder Daughter Cancer Thyroid Sister CAD (coronary artery disease) Surgical History Hx of colonoscopy Hx of right cataract extraction Hx of left cataract extraction History of excision of lesion Hx of local excision of skin lesion History of cardioversion (03/20/19) History of hysterectomy History of partial mastectomy History of left heart catheterization (05/31/14) Social History household members: none housing: house current occupational status: retired Smoking Status: Former smoker how long ago did patient quit smokin, 2p/day second hand exposure: Yes alcohol intake: current alcohol intake frequency: holidays/special occasions only substance use type: does not use ROS ROS ED ROS Narrative Constitutional: Denies any fevers, chills, headaches malaise, dizziness Eyes: Denies change in vision double vision blurry vision Cardiovascular: Denies chest pain or palpitations Respiratory: Complains of shortness of breath as noted above denies any increase sputum production Abdomen: Denies abdominal pain nausea vomit diarrhea : Denies any urinary symptoms Neurological: Denies any numbness, weakness, tingling Musculoskeletal: Denies back pain Skin: Denies rashes or lesions EXAM Physical Exam Narrative Exam Narrative: General: Patient was lying in bed did appear to be acutely short of breath Head: Atraumatic, normocephalic Eyes: PERRL bilateral, EOMI bilateral, no conjunctival injection noted Neck: Soft, supple, trachea midline Cardiovascular: Patient was tachycardic with an irregular regular rhythm Respiratory: Coarse breath sounds bilaterally Abdomen: Soft, nondistended, nontender to palpation Extremities: +4/5 strength noted in the bilateral upper extremities, 1+ pitting edema in the bilateral lower extremities Neurological: Patient follow commands knew that she was at [facility] there is 2023 Skin: Warm, dry, intact Const Vital Signs: 12/26/23 11:32 12/26/23 11:33 12/26/23 12:03 Temperature 97.8 F Temperature Source Oral Pulse Rate 50 L 142 H Respiratory Rate 26 H 22 H Respiratory Effort Short of Breath Labored Accessory Muscle Use Respiratory Depth Shallow Respiratory Pattern Tachypnea Normal Blood Pressure 129/92 H Blood Pressure Mean 104 Pulse Ox 92 Oxygen Delivery Method Nasal Cannula Room Air Oxygen Flow Rate (L/min) 5 12/26/23 12:32 12/26/23 13:00 12/26/23 14:00 Temperature Temperature Source Pulse Rate 132 H 102 H 108 H Respiratory Rate 26 H 28 H 24 H Respiratory Effort Respiratory Depth Respiratory Pattern Blood Pressure 143/113 H 142/99 H 158/96 H Blood Pressure Mean 123 113 116 Pulse Ox 97 95 95 Oxygen Delivery Method Nasal Cannula Room Air Room Air Oxygen Flow Rate (L/min) 12/26/23 15:00 12/26/23 15:55 12/26/23 16:00 Temperature 98.3 F Temperature Source Pulse Rate 92 92 Respiratory Rate 26 H 26 H Respiratory Effort Respiratory Depth Respiratory Pattern Blood Pressure 112/72 112/72 Blood Pressure Mean 85 85 Pulse Ox 96 96 Oxygen Delivery Method Nasal Cannula Oxygen Flow Rate (L/min) MDM MDM MDM Narrative Medical decision making narrative: Patient is a 83-year-old female who presents to the emergency department with a chief complaint of shortness of breath. Patient will have workup performed here on the differential diagnose includes Melamin to CHF exacerbation, pneumonia, pneumothorax, PE although do feel this less likely as she is chronically anticoagulated on Eliquis not missing doses. Once workup is obtained reviewed she will be reevaluated. Patient be given DuoNeb and be reevaluated. Patient was in atrial fibrillation with rapid ventricular response when she arrived she states that she did not take her home medications this morning therefore these were ordered including her carvedilol and her metoprolol we will reevaluate her heart rate afterwards. Patient's CBC was reviewed and was largely unremarkable no evidence leukocytosis white blood count was normal at 10, hemoglobin stable 10.8, platelet count normal at 299. Patient's sodium was noted to be normal at 144, potassium normal at 4.3, creatinine was noted to be 1.36, lactic acid normal at 1. Patient's AST and ALT were 11 and 17 respectively. Patient's troponin was noted to be normal at 20. Once again her EKG was reviewed and independently interpreted by myself which showed atrial fibrillation with a rapid ventricular response of 142 bpm. Patient's proBNP elevated to 569 is better from her previous proBNP's. Patient's lipase normal at 31, TSH normal at 0.69, free T4 and free T3 were 2.20 and 2.1 respectively. Patient's urinalysis showed positive nitrites 100 leukocyte esterase 5-10 white cells however there were also noted 5-10 squamous epithelial cells with 2+ bacteria will send this for culture and give her a dose of Rocephin while the culture results are pending. Patient's chest x-ray was reviewed and showed small bilateral pleural effusions with basilar atelectasis and cardiomegaly noted. Did attempt to get the patient up at bedside she was trying to use restroom her oxygen saturation desaturated to 79% on 5 L. This point time do believe the patient will warrant admission to the hospital discussed case with hospitalist. Discussed case with hospitalist Dr. Menard who states that she will come down and evaluate the patient. Dr. Menard came down to evaluate patient bedside show accept patient for admission. Patient given IV Lasix 40 mg. Patient is notified of the plan and is agreeable because concerns answered. Lab Data Labs: Laboratory Results - last 24 hr 12/26/23 12/26/23 12/26/23 11:44 13:07 14:53 WBC 10.0 RBC 4.05 L Hgb 10.8 L Hct 37.1 MCV 91.6 MCH 26.7 L MCHC 29.1 L RDW Std Deviation 53.6 H RDW Coeff of Sudha 16.1 H Plt Count 299 MPV 10.5 Immature Gran % (Auto) 1.100 H Neut % (Auto) 82.3 H Lymph % (Auto) 7.7 L [place] % (Auto) 7.0 Eos % (Auto) 1.3 Baso % (Auto) 0.6 Absolute Neuts (auto) 8.2 H Absolute Lymphs (auto) 0.77 L Nucleated RBC % 0 Sodium 144 Potassium 4.3 Chloride 109 H Carbon Dioxide 30.0 Anion Gap 5 BUN 26 H Creatinine 1.36 H Estim Creat Clear Calc 42.22 Est GFR (MDRD) Af Amer 48 L Est GFR (MDRD) Non-Af 39 L BUN/Creatinine Ratio 19.1 Glucose 139 H Lactic Acid 1.0 Calcium 9.4 Total Bilirubin 0.60 AST 11 L ALT 17 Alkaline Phosphatase 108 Troponin I High Sens 20 B-Natriuretic Peptide 569.8 H Total Protein 6.4 Albumin 2.6 L Globulin 3.8 Albumin/Globulin Ratio 0.7 L Lipase 31 TSH 0.694 Free T4 2.20 H Free T3 pg/dL 2.1 L Urine Color Yellow Urine Clarity Sl. Cloudy Urine pH 5.0 Ur Specific [place] 1.025 Urine Protein 500 H Urine Glucose (UA) 50 H Urine Ketones Negative Urine Occult Blood 10 H Urine Nitrite Positive H Urine Bilirubin Negative Urine Urobilinogen Normal Ur Leukocyte Esterase 100 H Urine RBC 0 SEEN Urine WBC 5-10 SEEN Ur Squamous Epith Cells 5-10 SEEN Urine Bacteria 2+ Urine Mucus 1+ POC Glucose 124 H Radiography Diagnostic Testing: Clinical Impression(s) from Imaging Studies Chest X-Ray 12/26/23 12:20 IMPRESSION: Small bilateral pleural effusions with bibasilar atelectasis. Cardiomegaly. Electronically Signed: Miguel Patterson MD at 12:41 EDT , Discharge Plan Triage Chief Complaint: Shortness of Breath ED Provider: Jean Cooney Dx/Rx/DC Orders Clinical Impression: Atrial fibrillation with RVR, Hypoxia, CHF exacerbation Prescriptions: No Action furosemide 40 mg tablet 40 mg PO BID metoprolol tartrate 100 mg tablet 100 mg PO BID Qty: 180 3RF diltiazem HCl 240 mg capsule,extended release 24hr 240 mg PO DAILY Qty: 90 3RF glimepiride 1 mg tablet 1 mg PO QDAY cholecalciferol (vitamin D3) [Vitamin D3] 25 mcg (1,000 unit) capsule 25 mcg PO QDAY Entresto 49-51 mg tablet 1 tab PO BID levothyroxine 200 mcg tablet 200 mcg PO DAILY rosuvastatin 40 mg tablet 40 mg PO QHS polysaccharide iron complex [Ferrex 150] 150 mg iron Capsule 150 mg PO DAILY 30 Days Qty: 30 0RF potassium chloride 20 mEq Tablet,Er Particles/Crystals 20 meq PO BIDCM 30 Days Qty: 60 0RF levothyroxine 50 mcg Tablet 50 mcg PO DAILY@0600 Qty: 0 0RF Eliquis 2.5 mg tablet 2.5 mg PO DAILY insulin degludec [Tresiba FlexTouch U-100] 100 unit/mL (3 mL) insulin pen 30 unit subcut DAILY Primary Care Provider: Alexy Douglas Chi Referrals: Alexy Douglas Chi, MD [Primary Care Provider] - Print Language: Czech
--- NOTE | 2023-12-26 17:15 | NURSING ---
PCU [facility] HYPOXIA, CHF EXAC
[2023-12-26] MEDS: Furosemide 40 MG/4 ML Vial IV ×2 (17:21→21:39)
--- NOTE | 2023-12-26 17:26 | HP.PCM.HOS_ITS ---
[facility] - [facility] General Date of Service: 12/26/23 Chief Complaint: SOB [facility] Narrative TONJA SÁNCHEZ, is a 83 y/o F w/ HFpEF, COPD, hypothyroidism, DM, morbid obesity, A-fib, pleural effusions who presented 12/26/2023 with shortness of breath. Had thoracentesis Saturday for a right sided pleural effusion but has been progressively more short of breath since that time and did not find that that helped with her breathing at all. She has been progressively more short of breath since that time prompting her to come to the ED. On arrival heart rate in the 150s and she was found to be in A-fib with RVR and was short of breath. She had not taken her morning oral medications so these were given patient's heart rate improved to the 90s and low 100s and her shortness of breath improved. She is also found to have urinary tract infection given Rocephin. Initial plan was for discharge home however when patient got up to go to the bedside commode she desaturated into the 70s on 5 L of O2 so hospitalist contacted for admission. The patient evaluated at bedside and she reports that she has had recurrent left-sided pleural effusions and had roughly 19 thoracentesis before she went to [place] in the past 1 to 2 years and had definitive treatment. She has been having increasing shortness of breath which prompted her to be evaluated by pulmonology and she was found to have a right sided effusion and it was felt that that was likely the cause of her shortness of breath so she had a thoracentesis with over 700 out however that did not improve her breathing and is continued to worsen. She contacted her physician who recommended she come to the ED. Pt reports since her HR improved her breathing is feeling much better though still worse than baseline. Denies any fevers or chills, no cough. Does have pitting edema in lower extremities but is unsure if this is worse than usual. No chest pain, no abdominal pain. Patient does report feeling the need to urinate frequently but unable to urinate a significant amount. No diarrhea [facility] Medical History Congestive heart failure (CHF) IDDM (insulin dependent diabetes mellitus) Diabetes Rheumatoid arthritis On home oxygen therapy Low iron Insulin dependent diabetes mellitus Wears glasses Wears dentures Cancer History of steroid therapy History of renal disease High cholesterol Restless legs Injury of back Back pain Dietary restriction Shortness of breath on exertion History of pain when walking History of edema History of echocardiogram History of stress test Cardiology follow-up encounter History of CHF (congestive heart failure) History of atrial fibrillation Hyperlipidemia Overactive bladder Hypothyroidism Diabetes mellitus Hypertension Chronic kidney disease, stage 3b Former smoker Atrial fibrillation Hypertension Chronic anticoagulation Skin cancer, basal cell Actinic keratosis Skin lesion Skin cancer Chronic diastolic (congestive) heart failure Longstanding persistent atrial fibrillation Diastolic dysfunction Secondary pulmonary arterial hypertension Non-rheumatic tricuspid valve insufficiency Stage 2 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 Right hip pain Disc degeneration, lumbar Fatigue UTI (urinary tract infection) Hypoxia Hypersomnia COPD (chronic obstructive pulmonary disease) Obesity Tobacco dependence in remission CKD (chronic kidney disease) stage 3, GFR 30-59 ml/min Breast cancer Essential (primary) hypertension BMI 39.0-39.9,adult Erosion of bladder suspension mesh SHAKIRA (stress urinary incontinence, female) Home Medications ?Medication ?Instructions ?Recorded ?Last Taken ?Type metoprolol tartrate 100 mg tablet 100 mg PO BID BP/heart rate #180 04/05/23 Unknown Rx tabs diltiazem HCl 240 mg 240 mg PO DAILY heart #90 caps 04/26/23 Unknown Rx capsule,extended release 24 hr levothyroxine 50 mcg tablet 50 mcg PO DAILY@0600 #0 tabs 08/02/23 Unknown Rx polysaccharide iron complex 150 mg 150 mg PO DAILY 30 days #30 caps 08/02/23 Unknown Rx iron capsule (Ferrex) potassium chloride 20 mEq 20 meq PO BIDCM 30 days #60 tabs 08/02/23 Unknown Rx tablet,extended release(part/cryst) apixaban 2.5 mg tablet (Eliquis) 2.5 mg PO DAILY blood thinner 08/20/23 Unknown History furosemide 40 mg tablet 40 mg PO BID 10/21/23 Unknown History sacubitril 49 mg-valsartan 51 mg 1 tab PO BID 10/21/23 Unknown History tablet (Entresto) levothyroxine 200 mcg tablet 200 mcg PO DAILY 12/02/23 Unknown History rosuvastatin 40 mg tablet 40 mg PO QHS 12/02/23 Unknown History cholecalciferol (vitamin D3) 25 25 mcg PO QDAY 12/20/23 Unknown History mcg (1,000 unit) capsule (Vitamin D3) glimepiride 1 mg tablet 1 mg PO QDAY 12/20/23 Unknown History insulin degludec 100 unit/mL (3 30 unit subcut DAILY 12/26/23 Unknown History mL) subcutaneous pen (Tresiba FlexTouch U-100 insulin) Allergy/AdvReac Type Severity Reaction Status Date / Time Sulfa (Sulfonamide Allergy PEELING Verified 12/26/23 11:35 Antibiotics) RASH Family History Mother Colon cancer Cancer skin, bladder Daughter Cancer Thyroid Sister CAD (coronary artery disease) Surgical History Hx of colonoscopy Hx of right cataract extraction Hx of left cataract extraction History of excision of lesion Hx of local excision of skin lesion History of cardioversion (03/20/19) History of hysterectomy History of partial mastectomy History of left heart catheterization (05/31/14) Social History household members: none housing: house current occupational status: retired Smoking Status: Former smoker how long ago did patient quit smokin, 2p/day second hand exposure: Yes alcohol intake: current alcohol intake frequency: holidays/special occasions only substance use type: does not use ROS ROS Narrative General: Denies fever/chills HENT: Denies headache, denies stuffy nose, denies sore throat EYES: Denies changes in vision Resp: No significant productive cough, has had increasing shortness of breath Cardiac: Denies chest pain GI: Denies abdominal pain, denies changes in bowel, denies nausea/vomiting : Has had some urinary frequency and hesitancy Extremity: Lower extremity swelling MSK: Denies weakness Neuro: Denies any numbness/tingling Heme: Denies any bleeding or bruising Skin: Denies rashes Psychiatric: No complaints voiced Vital Signs Vital Signs Vital Signs: 12/26/23 11:32 12/26/23 11:33 12/26/23 12:03 Temperature 97.8 F Temperature Source Oral Pulse Rate 50 L 142 H Respiratory Rate 26 H 22 H Respiratory Effort Short of Breath Labored Accessory Muscle Use Respiratory Depth Shallow Respiratory Pattern Tachypnea Normal Blood Pressure 129/92 H Blood Pressure Mean 104 Pulse Ox 92 Oxygen Delivery Method Nasal Cannula Room Air Oxygen Flow Rate (L/min) 5 12/26/23 12:32 12/26/23 13:00 12/26/23 14:00 Temperature Temperature Source Pulse Rate 132 H 102 H 108 H Respiratory Rate 26 H 28 H 24 H Respiratory Effort Respiratory Depth Respiratory Pattern Blood Pressure 143/113 H 142/99 H 158/96 H Blood Pressure Mean 123 113 116 Pulse Ox 97 95 95 Oxygen Delivery Method Nasal Cannula Room Air Room Air Oxygen Flow Rate (L/min) 12/26/23 15:00 12/26/23 15:55 12/26/23 16:00 Temperature 98.3 F Temperature Source Pulse Rate 92 92 Respiratory Rate 26 H 26 H Respiratory Effort Respiratory Depth Respiratory Pattern Blood Pressure 112/72 112/72 Blood Pressure Mean 85 85 Pulse Ox 96 96 Oxygen Delivery Method Nasal Cannula Oxygen Flow Rate (L/min) 12/26/23 17:00 Temperature Temperature Source Pulse Rate 99 Respiratory Rate 27 H Respiratory Effort Respiratory Depth Respiratory Pattern Blood Pressure 137/95 H Blood Pressure Mean 109 Pulse Ox 97 Oxygen Delivery Method Nasal Cannula Oxygen Flow Rate (L/min) Weight Weight: 121.3 kg Body Mass Index (BMI) 40.5 Physical Exam Narrative General: Alert, oriented HEENT: Atraumatic, normocephalic Eyes: Anicteric, Neck: Supple Respiratory: Slight increase in respiratory effort, diffuse crackles and dull at the bases Cardiovascular: Irregularly irregular GI: Soft, nontender, nondistended Extremities: 1-2+ bilateral lower extremity pitting edema Musculoskeletal: Moving all extremities Neuro: No overt focal neurological deficits Skin: No rashes appreciated Psych: Cooperative Results Lab / Micro Data 12/26/23 11:44 12/26/23 11:44 Labs: Laboratory Results - last 24 hr 12/26/23 11:44: WBC 10.0, RBC 4.05 L, Hgb 10.8 L, Hct 37.1, MCV 91.6, MCH 26.7 L , MCHC 29.1 L, RDW Std Deviation 53.6 H, RDW Coeff of Sudha 16.1 H, Plt Count 299, MPV 10.5, Immature Gran % (Auto) 1.100 H, Neut % (Auto) 82.3 H, Lymph % (Auto) 7.7 L, [place] % (Auto) 7.0, Eos % (Auto) 1.3, Baso % (Auto) 0.6, Absolute Neuts (auto) 8.2 H, Absolute Lymphs (auto) 0.77 L, Nucleated RBC % 0, Sodium 144, Potassium 4.3, Chloride 109 H, Carbon Dioxide 30.0, Anion Gap 5, BUN 26 H, C reatinine 1.36 H, Estim Creat Clear Calc 42.22, Est GFR (MDRD) Af Amer 48 L, Est GFR (MDRD) Non-Af 39 L, BUN/Creatinine Ratio 19.1, Glucose 139 H, Lactic Acid 1.0, Calcium 9.4, Total Bilirubin 0.60, AST 11 L, ALT 17, Alkaline Phosphatase 108, Troponin I High Sens 20, B-Natriuretic Peptide 569.8 H, Total Protein 6.4, Albumin 2.6 L, Globulin 3.8, Albumin/Globulin Ratio 0.7 L, Lipase 31, TSH 0.694, Free T4 2.20 H, Free T3 pg/dL 2.1 L 12/26/23 13:07: Urine Color Yellow, Urine Clarity Sl. Cloudy, Urine pH 5.0, Ur Specific [place] 1.025, Urine Protein 500 H, Urine Glucose (UA) 50 H, Urine Ketones Negative, Urine Occult Blood 10 H, Urine Nitrite Positive H, Urine Bilirubin Negative, Urine Urobilinogen Normal, Ur Leukocyte Esterase 100 H, Urine RBC 0 SEEN, Urine WBC 5-10 SEEN, Ur Squamous Epith Cells 5-10 SEEN, Urine Bacteria 2+, Urine Mucus 1+ 12/26/23 14:53: POC Glucose 124 H Micro: Microbiology 12/26/23 12:22 Mucosa - Nose SARS-CoV-2, Influenza & RSV (PCR) - Final Imaging Radiology Impression Chest X-Ray 12/26/23 12:20 IMPRESSION: Small bilateral pleural effusions with bibasilar atelectasis. Cardiomegaly. Electronically Signed: Miguel Patterson MD at 12:41 EDT , Assessment & Plan Assessment/Plan (1) Atrial fibrillation with RVR: (2) CHF exacerbation: PLAN: Plan # Hypoxia secondary to acute exacerbation of chronic heart failure with preserved ejection fraction -Pt only requires O2 prn at home but presently 90's on 5L but desaturated to 70's on ambulation on 5L -Admit to telemetry -BNP 569 -CXR read as being small bilateral pleural effusions, and review of the films it does appear consistent with fluid overload -Additionally patient with bilateral lower extremity edema and increasing SOB -Continue IV lasix -Last echo with severe concentric left ventricular hypertrophy and estimated EF of 60% this was 05/27/2023 -Repeat echo ordered -Daily weights, I's and O's -Fluid restriction, heart healthy diet # A-fib with RVR -Improved with oral medications alone -Breathing did improve with improvement in heart rate -Query if the RVR is what caused her heart failure exacerbation -Continue Eliquis. Patient's home med list says patient takes 2.5 mg of Eliquis daily however given that she is 83 but creatinine not greater than 1.5 and she is not less than 60 kg she qualifies for 5 twice daily of Eliquis. Will increase dose especially given she is actively in A-fib, do not see indication for lower dosing or for daily dosing -TSH checked today and was within normal limits #Concern for UTI - UA with nitrate, leuk esterase, 2+ bacteria. Does have some mucus and a couple squamous epithelial cells so unclear if this is pathologic or not clean- catch - was started on Rocephin in the ED -Patient was symptomatic and given UA do feel it is reasonable to continue treating while awaiting urine culture #Recurring left sided pleural effusion with pleurodesis/recent right sided effusion -Patient had recurrent left-sided pleural effusions with roughly 19 thoracenteses but had thorascopic left pleurodesis done at [facility] in July 2023 -Saturday she is found to have a right-sided pleural effusion and had thoracentesis with 700 out but this was the first time that she ever had any thoracentesis on the right side and she did not think that had any impact on her symptoms -Do not think she needs thoracentesis at this time, did discuss possible transfer if it was felt that this was recurrent effusion related but patient said she would not want to go through a pleurodesis again unless absolutely necessary and would like to stay at our institution and attempt diuresis before considering anything more invasive which is very reasonable given she has only had 1 thoracentesis #COPD -Albuterol as needed -Incentive spirometry #Type 2 diabetes mellitus - continue long-acting insulin but at lower dose until patient's requirements are apparent to avoid hypoglycemia -Glucose checks and sliding scale insulin # CKD stage IIIb -Appears to be at baseline -Avoid nephrotoxic agents -Daily BMPs #Hypertension - continue home medications at this time #Hypothyroidism -Continue Synthroid #Morbid obesity -BMI documented as 40.7kg/m? at time of admission -Complicates treatment, prognosis, outcomes -Recommend weight loss and lifestyle changes #DVT ppx: João Menard MD Charges/Coding Visit Charges Inpatient E&M: 11168 Init Hosp L3
--- NOTE | 2023-12-26 19:08 | ECHOCS_ITS ---
Reason For Study: CHF Procedure This was a 2D Doppler, Color Flow transthoracic echocardiogram. Contrast injection was performed. Exam performed portable in patient room. Left Ventricle Normal size and thickness. The left ventricular ejection fraction is 65 %. Unable to assess diastolic dysfunction due to arrhythmia. Right Ventricle Normal RV size. Mild global right ventricular systolic dysfunction. Atria There is severe biatrial dilatation. Mitral Valve Moderate mitral annular calcification. Trivial mitral valve insufficiency. Tricuspid Valve Severe (4+) tricuspid valve insufficiency. Severe pulmonary hypertension. Pulmonary artery systolic pressure estimated at 60 mmHg. Aortic Valve Aortic sclerosis, no stenosis. Medication Diluted definity 1.5ml given slow IV push to enhance endocardial definition. MMode/2D Measurements & Calculations LVIDd: 4.7 cm IVSd: 0.77 cm LVOT diam: 2.0 cm LVIDs: 3.7 cm LVPWd: 0.83 cm LVOT area: 3.1 cm2 RVDd: 4.2 cm FS: 22.7 % Ao root diam: 3.7 cm LAV(MOD-bp): 123.4 ml LVAd ap4: 32.0 cm2 LAV(MOD-bp) Indexed: 53.6 ml/m2 LVLd ap4: 8.6 cm LAV(MOD-sp2): 121.2 ml EDV(MOD-sp4): 96.8 ml LAV(MOD-sp4): 113.6 ml EDV(sp4-el): 101.8 ml LVAs ap4: 16.4 cm2 LVLs ap4: 6.5 cm ESV(MOD-sp4): 34.0 ml ESV(sp4-el): 34.8 ml EF(MOD-sp4): 64.9 % EF(sp4-el): 65.8 % SV(MOD-sp4): 62.8 ml SV(sp4-el): 66.9 ml Ao sinus diam: 3.[address] Junction: 2.8 cm LA A4 area: 32.1 cm2 LA dimension(2D): 3.8 cm TAPSE: 1.4 cm RA A4 area: 28.7 cm2 Doppler Measurements & Calculations MV E max zoe: 108.5 cm/sec MV V2 max: 127.8 cm/sec Ao V2 max: 129.6 cm/sec MV max P.6 mmHg Ao max P.7 mmHg MV V2 mean: 56.2 cm/sec Ao V2 mean: 86.4 cm/sec MV mean P.7 mmHg Ao mean P.4 mmHg MV V2 VTI: 29.5 cm Ao V2 VTI: 22.3 cm MVA(VTI): 1.8 cm2 AV (velocity ratio): 0.78 LAMBERTO(I,D): 2.4 cm2 LAMBERTO(V,D): 2.6 cm2 LV V1 max: 106.6 cm/sec SV(LVOT): 54.5 ml PA V2 max: 67.4 cm/sec LV V1 max P.6 mmHg PA max PG (full): 0.67 mmHg LV V1 mean P.4 mmHg LV V1 mean: 70.3 cm/sec LV V1 VTI: 17.4 cm TR max zoe: 318.6 cm/sec TR max P.1 mmHg ECHO/Echo Complete W/ Contrast Interpretation Summary The left ventricular ejection fraction is 65 %. Mild global right ventricular systolic dysfunction. There is severe biatrial dilatation. Moderate mitral annular calcification. Aortic sclerosis, no stenosis. Severe (4+) tricuspid valve insufficiency.. Severe pulmonary hypertension. Pulmonary artery systolic pressure estimated at 60 mmHg. Ordering Physician: Christina Menard Performed By: Colton Artis RCS
[2023-12-26] MEDS: APIXABAN 5 MG TABLET PO (21:39)
[2023-12-26] MEDS: Atorvastatin Calcium 80 MG Tablet PO (21:40)
[2023-12-26] MEDS: SACUBITRIL/VALSARTAN 49-51 MG TABLET 1 EACH PO (21:40)
[2023-12-26] MEDS: Insulin Lispro 100 UNIT/ML INSULN.PEN SC (21:49)
[2023-12-27] VITALS (7 sets, daily range): BP systolic 115–132; BP diastolic 73–101; PULSE 89–93; RESP 16–20; TEMP 36.4–36.8; O2SAT 9–96; BMI 40.1
[2023-12-27 00:51] LABS: Bedside Glucose 213 mg/dL (74-106)
[2023-12-27] MEDS: Levothyroxine 100 MCG Tablet 200 MCG PO (06:02)
[2023-12-27] MEDS: Levothyroxine 50 MCG Tablet PO (06:02)
[2023-12-27 06:16] LABS: Absolute Lymphocyte Count 0.79 X10^3/uL (0.83-4.51); Basophil# 0.06 X10^3/uL; Basophil% 0.6 % (0-1); Eosinophil# 0.25 X10^3/uL; Eosinophils% 2.5 % (0-5); Hematocrit 33.9 % (37-47); Hemoglobin 9.9 g/dL (12.0-15.0); Lymphocyte # 0.79 X10^3/ul (0.83-4.51); Lymphocyte % 7.9 % (19-41); Mean Corp Hgb Conc 29.2 g/dL (32-36); Mean Corpuscular Hgb 26.8 pg (27.0-32.0); Mean Corpuscular Volume 91.9 fL (81-99); Mean Platelet Vol. 10.7 fl (6.2-12.0); Monocyte# 0.82 X10^3/uL; Monocyte% 8.2 % (0-10); NRBC Flagged by Analyzer 0 % (0-5); Neutrophil # 7.99 X10^3/uL (2.7-7.7); Neutrophil % 79.8 % (47-70); Platelet Count 288 K/mm3 (150-450); RBC Distribution Width CV 16.1 % (11.6-14.6); RBC Distribution Width SD 54.3 fl (35.1-43.9); Red Blood Count 3.69 M/mm3 (4.2-5.4)
[2023-12-27 06:24] LABS: Bedside Glucose 144 mg/dL (74-106)
[2023-12-27 06:36] LABS: Anion Gap 5 (5-15); BUN 24 mg/dL (7-18); Calcium,Total 8.7 mg/dL (8.5-10.1); Chloride 106 mmol/L (98-107); Creatinine, Serum 1.33 mg/dL (0.55-1.02); EST Glomerular Filtration Rate 40 mL/min (>60); Est Glom Filt Rate - Afr Amer 49 mL/min (>60); Estimated Creatinine Clearance 42.84 ml/min; Glucose 140 mg/dL (74-106); Magnesium 2.2 mg/dL (1.6-2.6); Phosphorus 4.3 mg/dL (2.5-4.9); Potassium 3.5 mmol/L (3.5-5.1); Sodium Level 142 mmol/L (136-145)
[2023-12-27] MEDS: SACUBITRIL/VALSARTAN 49-51 MG TABLET 1 EACH PO ×2 (10:45→21:09)
[2023-12-27] MEDS: dilTIAZem CD 240 MG Capsule PO (10:45)
[2023-12-27] MEDS: Insulin Lispro 100 UNIT/ML INSULN.PEN SC ×3 (10:45→21:08)
[2023-12-27] MEDS: Potassium Chloride Oral Tablet 20 MEQ PO ×2 (10:45→17:49)
[2023-12-27] MEDS: Ceftriaxone 1 GM/50 ML BAG IV (10:45)
[2023-12-27] MEDS: Insulin Glargine-YFGN 100 UNIT/ML Pen 15 UNIT SC (10:45)
[2023-12-27] MEDS: APIXABAN 5 MG TABLET PO ×2 (10:45→21:09)
[2023-12-27] MEDS: Metoprolol Tartrate 100 MG Tablet PO ×2 (10:45→21:10)
[2023-12-27] MEDS: Furosemide 40 MG/4 ML Vial IV ×2 (10:45→17:48)
--- NOTE | 2023-12-27 11:56 | CASEMGMT ---
RN CM compteted readmission review, see CM: Readmission Intervention. Patient denies needs at discharge. Will monitor for increase of home oxygen, current order is for 4lpm continous through [employer], has portability for at discharge. Discussed adding therapy to HHC. Patient denies further concerns. Patient to discharge home with HHC, family support, and follow-up plans in place.
[2023-12-27 11:59] LABS: Bedside Glucose 203 mg/dL (74-106)
--- NOTE | 2023-12-27 14:44 | PCM.PN.HOSP ---
Subjective Subjective Doing well, breathing better and feeling a little bit better today. Objective Data Objective Data Vital Signs: Vital Signs Temp Pulse Resp BP Pulse Ox O2 Del Method O2 Flow Rate 97.6 F L 91 20 H 127/85 H 96 Nasal Cannula 6 12/27/23 14:26 12/27/23 14:26 12/27/23 14:26 12/27/23 14:26 12/27/23 14:26 12/27/23 14:26 12/27/23 14:26 Oxygen Flow Rate (L/min) 6 Oxygen Delivery Method Nasal Cannula Weight: 263 lb 10.766 oz Body Mass Index (BMI) 40.1 Intake & Output: Intake and Output for Last 24 Hours 12/26/23 12/27/23 12/28/23 03:59 03:59 03:59 Intake Total 50 / 50 50 / 50 Output Total 1050 / 1050 600 / 600 Balance -1000 / -1000 -550 / -550 Lab / Micro Data 12/27/23 05:20 12/27/23 05:20 Labs: Laboratory Results - last 24 hr 12/26/23 14:53: POC Glucose 124 H 12/26/23 21:42: POC Glucose 213 H 12/27/23 05:20: WBC 10.0, RBC 3.69 L, Hgb 9.9 L, Hct 33.9 L, MCV 91.9, MCH 26.8 L, MCHC 29.2 L, RDW Std Deviation 54.3 H, RDW Coeff of Sudha 16.1 H, Plt Count 288, MPV 10.7, Immature Gran % (Auto) 1.000 H, Neut % (Auto) 79.8 H, Lymph % (Auto) 7.9 L, [place] % (Auto) 8.2, Eos % (Auto) 2.5, Baso % (Auto) 0.6, Absolute Neuts (auto) 8.0 H, Absolute Lymphs (auto) 0.79 L, Nucleated RBC % 0, Sodium 142, Potassium 3.5, Chloride 106, Carbon Dioxide 31.0, Anion Gap 5, BUN 24 H, Creatinine 1.33 H, Estim Creat Clear Calc 42.84, Est GFR (MDRD) Af Amer 49 L, Est GFR (MDRD) Non-Af 40 L, BUN/Creatinine Ratio 18.0, Glucose 140 H, Calcium 8.7, Phosphorus 4.3, Magnesium 2.2 12/27/23 06:00: POC Glucose 144 H 12/27/23 11:37: POC Glucose 203 H Micro: Microbiology 12/26/23 13:07 Urine, Clean Catch Urine Culture - Preliminary GNR lactose horticultural technical officer GNR lactose horticultural technical officer#2 12/26/23 20:55 Mucosa - Nasopharyngeal Respiratory Panel (PCR) - Final 12/26/23 19:08 Nasal Secretion SARS-CoV-2 Antigen (Rapid) - Final 12/26/23 12:22 Mucosa - Nose SARS-CoV-2, Influenza & RSV (PCR) - Final Radiography Diagnostic Testing: Radiology Impression Echocardiogram 12/26/23 19:08 Interpretation Summary The left ventricular ejection fraction is 65 %. Mild global right ventricular systolic dysfunction. There is severe biatrial dilatation. Moderate mitral annular calcification. Aortic sclerosis, no stenosis. Severe (4+) tricuspid valve insufficiency.. Severe pulmonary hypertension. Pulmonary artery systolic pressure estimated at 60 mmHg. Ordering Physician: Christina Menard Performed By: Colton Artis RCS Physical Exam Narrative General: Alert, Oriented x3, Cooperative, No apparent distress HEENT: Atraumatic, PERRLA, EOMI, Normocephalic Oral: Moist Mucosa Neck: Supple, No JVD Lungs: Diminished, Normal air movement, scattered rhonchi, No wheeze, No rales Cardiovascular: Irregular rate and rhythm, Normal S1, Normal S2, No murmurs Abdomen: Soft, Non Tender, Non-Distended, No Hepato-splenomegaly Extremities: Edema, Capillary Refill Less than 3 Seconds Skin: No rashes, No breakdown Musculoskeletal: No Tenderness to Palpation of Joints or Extremities Neurological: No focal neurological deficits, Motor Exam 5/5 strength throughout, Sensory exam intact to light touch and pain Psych/Mental Status: Normal Affect, Appropriate Assessment & Plan Assessment/Plan (1) Atrial fibrillation with RVR: (2) CHF exacerbation: PLAN: Plan 1. Hypoxia secondary to acute on chronic diastolic CHF exacerbated by A-fib with RVR/essential HTN/HLD ? Still in A-fib but rate controlled, continue with her home medications ? Continue with IV Lasix ? Repeat echo with an EF of 65% with severe biatrial dilatation and a PASP of 60 mmHg ? He is currently on 6 L nasal cannula will wean as able ? Continue fluid restriction and I's and O's as well as daily weights ? Continue with anticoagulation ? She has been having issues with recurrent left-sided pleural effusion status post pleurodesis and she recently had a right-sided effusion 2. UTI ? Urine cultures pending ? Continue with Rocephin 3. DM2 with CKD 3B ? Continue with sliding scale insulin ? Accu-Cheks ACHS ? Will monitor make adjustments as necessary 4. COPD ? Not in exacerbation ? Continue with inhalers 5. Hypothyroidism ? Stable ? Continue with Synthroid DVT: Eliquis Charges/Coding Visit Charges Inpatient E&M: 72144 Subs Hosp L2
[2023-12-27 16:27] LABS: Bedside Glucose 163 mg/dL (74-106)
[2023-12-27] MEDS: Atorvastatin Calcium 80 MG Tablet PO (21:09)
[2023-12-27] MEDS: Senna/Docusate Sodium 1 Tablet 2 TABLET PO (21:10)
[2023-12-28] VITALS (7 sets, daily range): BP systolic 109–139; BP diastolic 59–74; PULSE 88–102; RESP 18; TEMP 36.6–36.8; O2SAT 88–96; BMI 39.9
[2023-12-28 06:30] LABS: Bedside Glucose 165 mg/dL (74-106)
[2023-12-28] MEDS: Levothyroxine 50 MCG Tablet PO (06:33)
[2023-12-28] MEDS: Insulin Lispro 100 UNIT/ML INSULN.PEN SC ×4 (06:33→21:52)
[2023-12-28] MEDS: Levothyroxine 100 MCG Tablet 200 MCG PO (06:35)
[2023-12-28 06:55] LABS: Bedside Glucose 156 mg/dL (74-106)
[2023-12-28 08:18] LABS: Absolute Lymphocyte Count 0.98 X10^3/uL (0.83-4.51); Absolute Neutrophil Count 9.1 X10^3/uL (2.0-7.7); Basophil# 0.04 X10^3/uL; Basophil% 0.4 % (0-1); Eosinophil# 0.16 X10^3/uL; Eosinophils% 1.5 % (0-5); Hematocrit 34.2 % (37-47); Hemoglobin 9.9 g/dL (12.0-15.0); Lymphocyte # 0.98 X10^3/ul (0.83-4.51); Lymphocyte % 8.9 % (19-41); Mean Corp Hgb Conc 28.9 g/dL (32-36); Mean Corpuscular Hgb 26.5 pg (27.0-32.0); Mean Corpuscular Volume 91.7 fL (81-99); Mean Platelet Vol. 10.6 fl (6.2-12.0); Monocyte# 0.64 X10^3/uL; Monocyte% 5.8 % (0-10); NRBC Flagged by Analyzer 0 % (0-5); Neutrophil # 9.09 X10^3/uL (2.7-7.7); Neutrophil % 82.7 % (47-70); Platelet Count 291 K/mm3 (150-450); RBC Distribution Width CV 16.2 % (11.6-14.6); RBC Distribution Width SD 54.3 fl (35.1-43.9); Red Blood Count 3.73 M/mm3 (4.2-5.4)
[2023-12-28 09:41] LABS: Anion Gap 5 (5-15); BUN 25 mg/dL (7-18); BUN/Creat Ratio 16.2 RATIO (10-20); Calcium,Total 8.9 mg/dL (8.5-10.1); Chloride 102 mmol/L (98-107); Creatinine, Serum 1.54 mg/dL (0.55-1.02); EST Glomerular Filtration Rate 34 mL/min (>60); Est Glom Filt Rate - Afr Amer 41 mL/min (>60); Estimated Creatinine Clearance 36.94 ml/min; Glucose 151 mg/dL (74-106); Potassium 3.6 mmol/L (3.5-5.1); Sodium Level 139 mmol/L (136-145)
[2023-12-28] MEDS: Senna/Docusate Sodium 1 Tablet 2 TABLET PO (09:45)
[2023-12-28] MEDS: Ceftriaxone 1 GM/50 ML BAG IV (09:46)
[2023-12-28] MEDS: Furosemide 40 MG/4 ML Vial IV ×2 (09:46→16:41)
[2023-12-28] MEDS: SACUBITRIL/VALSARTAN 49-51 MG TABLET 1 EACH PO ×2 (09:47→21:51)
[2023-12-28] MEDS: Insulin Glargine-YFGN 100 UNIT/ML Pen 15 UNIT SC (09:47)
[2023-12-28] MEDS: Potassium Chloride Oral Tablet 20 MEQ PO ×2 (09:47→16:41)
[2023-12-28] MEDS: dilTIAZem CD 240 MG Capsule PO (09:47)
[2023-12-28] MEDS: Metoprolol Tartrate 100 MG Tablet PO ×2 (09:47→21:51)
[2023-12-28] MEDS: APIXABAN 5 MG TABLET PO ×2 (09:47→21:51)
[2023-12-28 11:35] LABS: Bedside Glucose 181 mg/dL (74-106)
--- NOTE | 2023-12-28 14:31 | PN.HOSP_ITS ---
Subjective Subjective No issues overnight, breathing a little bit better. She is down to 5 L nasal cannula Objective Data Objective Data Vital Signs: Vital Signs Temp Pulse Resp BP Pulse Ox O2 Del Method O2 Flow Rate 98.2 F 102 H 18 116/74 94 Nasal Cannula 5 12/28/23 09:45 12/28/23 09:47 12/28/23 09:45 12/28/23 09:45 12/28/23 09:45 12/28/23 13:42 12/28/23 13:42 Oxygen Flow Rate (L/min) 5 Oxygen Delivery Method Nasal Cannula Weight: 263 lb 0.183 oz Body Mass Index (BMI) 39.9 Intake & Output: Intake and Output for Last 24 Hours 12/27/23 12/28/23 12/29/23 03:59 03:59 03:59 Intake Total 50 / 50 50 / 50 50 / 50 Output Total 1050 / 1050 1600 / 1600 200 / 200 Balance -1000 / -1000 -1550 / -1550 -150 / -150 Lab / Micro Data 12/28/23 07:25 12/28/23 07:25 Labs: Laboratory Results - last 24 hr 12/27/23 16:07: POC Glucose 163 H 12/27/23 21:05: POC Glucose 165 H 12/28/23 06:31: POC Glucose 156 H 12/28/23 07:25: WBC 11.0, RBC 3.73 L, Hgb 9.9 L, Hct 34.2 L, MCV 91.7, MCH 26.5 L, MCHC 28.9 L, RDW Std Deviation 54.3 H, RDW Coeff of Sudha 16.2 H, Plt Count 291, MPV 10.6, Immature Gran % (Auto) 0.700, Neut % (Auto) 82.7 H, Lymph % (Auto) 8.9 L, [place] % (Auto) 5.8, Eos % (Auto) 1.5, Baso % (Auto) 0.4, Absolute Neuts (auto) 9.1 H, Absolute Lymphs (auto) 0.98, Nucleated RBC % 0, Sodium 139, Potassium 3.6, Chloride 102, Carbon Dioxide 32.0, Anion Gap 5, BUN 25 H, C reatinine 1.54 H, Estim Creat Clear Calc 36.94, Est GFR (MDRD) Af Amer 41 L, Est GFR (MDRD) Non-Af 34 L, BUN/Creatinine Ratio 16.2, Glucose 151 H, Calcium 8.9 12/28/23 11:10: POC Glucose 181 H Micro: Microbiology 12/26/23 13:07 Urine, Clean Catch Urine Culture - Final Citrobacter freundii Klebsiella pneumoniae ozaenae 12/26/23 20:55 Mucosa - Nasopharyngeal Respiratory Panel (PCR) - Final 12/26/23 19:08 Nasal Secretion SARS-CoV-2 Antigen (Rapid) - Final 12/26/23 12:22 Mucosa - Nose SARS-CoV-2, Influenza & RSV (PCR) - Final Physical Exam Narrative General: Alert, Oriented x3, Cooperative, No apparent distress HEENT: Atraumatic, PERRLA, EOMI, Normocephalic Oral: Moist Mucosa Neck: Supple, No JVD Lungs: Diminished, Normal air movement, scattered rhonchi, No wheeze, No rales Cardiovascular: Irregular rate and rhythm, Normal S1, Normal S2, No murmurs Abdomen: Soft, Non Tender, Non-Distended, No Hepato-splenomegaly Extremities: Edema, Capillary Refill Less than 3 Seconds Skin: No rashes, No breakdown Musculoskeletal: No Tenderness to Palpation of Joints or Extremities Neurological: No focal neurological deficits, Motor Exam 5/5 strength throughout, Sensory exam intact to light touch and pain Psych/Mental Status: Normal Affect, Appropriate Assessment & Plan Assessment/Plan (1) Atrial fibrillation with RVR: (2) CHF exacerbation: PLAN: Plan 1. Hypoxia secondary to acute on chronic diastolic CHF exacerbated by A-fib with RVR/essential HTN/HLD ? Still in A-fib but rate controlled, continue with her home medications ? Continue with IV Lasix ? Repeat echo with an EF of 65% with severe biatrial dilatation and a PASP of 60 mmHg ? Will do an amatory pulse ox today ? Continue fluid restriction and I's and O's as well as daily weights ? Continue with anticoagulation ? She has been having issues with recurrent left-sided pleural effusion status post pleurodesis and she recently had a right-sided effusion 2. UTI due to Citrobacter and Klebsiella ? Continue with Rocephin 3. DM2 with CKD 3B ? Continue with sliding scale insulin ? Accu-Cheks ACHS ? Will monitor make adjustments as necessary 4. COPD ? Not in exacerbation ? Continue with inhalers 5. Hypothyroidism ? Stable ? Continue with Synthroid DVT: Eliquis Charges/Coding Visit Charges Inpatient E&M: 39681 Subs Hosp L2
[2023-12-28 17:13] LABS: Bedside Glucose 155 mg/dL (74-106)
[2023-12-28] MEDS: Atorvastatin Calcium 80 MG Tablet PO (21:51)
[2023-12-28 22:16] LABS: Bedside Glucose 165 mg/dL (74-106)
[2023-12-29 02:27] VITALS: BP 108/64; PULSE 74; RESP 18; TEMP 36.6; O2SAT 96
[2023-12-29 02:43] LABS: Bedside Glucose 140 mg/dL (74-106)
[2023-12-29 03:41] LABS: Anion Gap 4 (5-15); BUN 27 mg/dL (7-18); BUN/Creat Ratio 17.9 RATIO (10-20); Calcium,Total 8.7 mg/dL (8.5-10.1); Chloride 101 mmol/L (98-107); Creatinine, Serum 1.51 mg/dL (0.55-1.02); EST Glomerular Filtration Rate 35 mL/min (>60); Est Glom Filt Rate - Afr Amer 42 mL/min (>60); Estimated Creatinine Clearance 37.68 ml/min; Glucose 144 mg/dL (74-106); Magnesium 2.2 mg/dL (1.6-2.6); Potassium 3.7 mmol/L (3.5-5.1); Sodium Level 138 mmol/L (136-145)
[2023-12-29 04:02] VITALS: BMI 39.9
[2023-12-29] MEDS: Levothyroxine 50 MCG Tablet PO (06:20)
[2023-12-29] MEDS: Levothyroxine 100 MCG Tablet 200 MCG PO (06:20)
[2023-12-29 06:40] LABS: Bedside Glucose 139 mg/dL (74-106)
[2023-12-29 07:07] VITALS: O2SAT 93
[2023-12-29 08:02] VITALS: BP 131/78; PULSE 79; RESP 18; TEMP 36.2; O2SAT 94
[2023-12-29 08:19] VITALS: O2SAT 88; O2SAT 91; O2SAT 93
[2023-12-29 09:10] VITALS: PULSE 79
[2023-12-29] MEDS: Furosemide 40 MG/4 ML Vial IV (09:10)
[2023-12-29] MEDS: Potassium Chloride Oral Tablet 20 MEQ PO (09:10)
[2023-12-29] MEDS: Metoprolol Tartrate 100 MG Tablet PO (09:10)
[2023-12-29] MEDS: APIXABAN 5 MG TABLET PO (09:10)
[2023-12-29] MEDS: Ceftriaxone 1 GM/50 ML BAG IV (09:10)
[2023-12-29] MEDS: SACUBITRIL/VALSARTAN 49-51 MG TABLET 1 EACH PO (09:10)
[2023-12-29] MEDS: Insulin Glargine-YFGN 100 UNIT/ML Pen 15 UNIT SC (09:11)
[2023-12-29] MEDS: dilTIAZem CD 240 MG Capsule PO (09:11)
--- NOTE | 2023-12-29 09:21 | DCINST_ITS ---
Discharge Instructions Diet Discharge Diet: Low fat / Low cholesterol and 6 Cup Fluid Restriction Activity Discharge Activity: Return to Normal Activity Dressing / Incision Call your doctor if you observe: Fever of 101 or Higher, Shortness of breath, Dizziness, Fainting spells, Swelling in the ankles, Chest pain and Increased palpitations (irregular heartbeat) Follow Up Care Test Results: Test results from this visit will be discussed in further detail at your follow- up appointment, if applicable. Discharge Plan Admission Admit Date/Time: 12/26/23 17:26 Attending Provider: Ephraim Oneil Primary Care Provider: Alexy Douglas Chi Consulting Providers: Christina Menard Discharge Orders/Prescriptions Prescriptions: New cefdinir 300 mg capsule 300 mg PO BID Qty: 6 0RF Continued furosemide 40 mg tablet 40 mg PO BID metoprolol tartrate 100 mg tablet 100 mg PO BID Qty: 180 3RF diltiazem HCl 240 mg capsule,extended release 24hr 240 mg PO DAILY Qty: 90 3RF glimepiride 1 mg tablet 1 mg PO QDAY cholecalciferol (vitamin D3) [Vitamin D3] 25 mcg (1,000 unit) capsule 25 mcg PO QDAY Entresto 49-51 mg tablet 1 tab PO BID levothyroxine 200 mcg tablet 200 mcg PO DAILY rosuvastatin 40 mg tablet 40 mg PO QHS polysaccharide iron complex [Ferrex 150] 150 mg iron Capsule 150 mg PO DAILY 30 Days Qty: 30 0RF potassium chloride 20 mEq Tablet,Er Particles/Crystals 20 meq PO BIDCM 30 Days Qty: 60 0RF levothyroxine 50 mcg Tablet 50 mcg PO DAILY@0600 Qty: 0 0RF Eliquis 2.5 mg tablet 2.5 mg PO DAILY insulin degludec [Tresiba FlexTouch U-100] 100 unit/mL (3 mL) insulin pen 30 unit subcut DAILY Referrals / Follow Up: Alexy Douglas Chi, MD [Primary Care Provider] - Disposition Disposition (needs filled in before D/C Order can be placed): Home, Self Care
--- NOTE | 2023-12-29 15:05 | DS.PCM_ITS ---
Providers Date of Admission: 12/26/23 Primary Care Physician: Dr. Alexy Douglas MD Reason For Visit: HYPOXIA Diagnosis Discharge Diagnosis (1) Atrial fibrillation with RVR: Status: Acute Code(s): I48.91 - Unspecified atrial fibrillation (2) CHF exacerbation: Status: Chronic Code(s): I50.9 - Heart failure, unspecified Medications at Discharge Home Medications metoprolol tartrate 100 mg tablet 100 mg PO BID BP/heart rate #180 tabs 04/05/23 diltiazem HCl 240 mg capsule,extended release 24 hr 240 mg PO DAILY heart #90 caps 04/26/23 levothyroxine 50 mcg tablet 50 mcg PO DAILY@0600 #0 tabs 08/02/23 polysaccharide iron complex 150 mg iron capsule (Ferrex) 150 mg PO DAILY 30 days #30 caps 08/02/23 potassium chloride 20 mEq tablet,extended release(part/cryst) 20 meq PO BIDCM 30 days #60 tabs 08/02/23 apixaban 2.5 mg tablet (Eliquis) 2.5 mg PO DAILY blood thinner 08/20/23 furosemide 40 mg tablet 40 mg PO BID 10/21/23 sacubitril 49 mg-valsartan 51 mg tablet (Entresto) 1 tab PO BID 10/21/23 levothyroxine 200 mcg tablet 200 mcg PO DAILY 12/02/23 rosuvastatin 40 mg tablet 40 mg PO QHS 12/02/23 cholecalciferol (vitamin D3) 25 mcg (1,000 unit) capsule (Vitamin D3) 25 mcg PO QDAY 12/20/23 glimepiride 1 mg tablet 1 mg PO QDAY 12/20/23 insulin degludec 100 unit/mL (3 mL) subcutaneous pen (Tresiba FlexTouch U-100 insulin) 30 unit subcut DAILY 12/26/23 cefdinir 300 mg capsule 300 mg PO BID #6 caps 12/29/23 Hospital Course Operations None Procedures 2-D Echocardiogram Summary of Care Provided Minutes Spent on Discharge: 35 Hospital Course: Per HPI: TONJA SÁNCHEZ, is a 83 y/o F w/ HFpEF, COPD, hypothyroidism, DM, morbid obesity, A-fib, pleural effusions who presented 12/26/2023 with shortness of breath. Had thoracentesis Saturday for a right sided pleural effusion but has been progressively more short of breath since that time and did not find that that helped with her breathing at all. She has been progressively more short of breath since that time prompting her to come to the ED. On arrival heart rate in the 150s and she was found to be in A-fib with RVR and was short of breath. She had not taken her morning oral medications so these were given patient's heart rate improved to the 90s and low 100s and her shortness of breath improved. She is also found to have urinary tract infection given Rocephin. Initial plan was for discharge home however when patient got up to go to the bedside commode she desaturated into the 70s on 5 L of O2 so hospitalist contacted for admission. The patient evaluated at bedside and she reports that she has had recurrent left-sided pleural effusions and had roughly 19 thoracentesis before she went to [facility] in the past 1 to 2 years and had definitive treatment. She has been having increasing shortness of breath which prompted her to be evaluated by pulmonology and she was found to have a right sided effusion and it was felt that that was likely the cause of her shortness of breath so she had a thoracentesis with over 700 out however that did not improve her breathing and is continued to worsen. She contacted her physician who recommended she come to the ED. Pt reports since her HR improved her breathing is feeling much better though still worse than baseline. Denies any fevers or chills, no cough. Does have pitting edema in lower extremities but is unsure if this is worse than usual. No chest pain, no abdominal pain. Patient does report feeling the need to urinate frequently but unable to urinate a significant amount. No diarrhea Hospital Course: 1. Hypoxia secondary to acute on chronic diastolic CHF exacerbated by A-fib with RVR/essential HTN/HLD?83-year-old female presented to the hospital with increasing shortness of breath and was found to be in A-fib with RVR. This was resolved with appropriate medication and her heart rate and rhythm were much better today on the day of discharge. She did have an echocardiogram on this admission with an EF of 65% and severe biatrial dilatation and a PASP of 60 mmHg. She was continued on IV diuresis and then discharged on her oral Lasix. She did have an ambulatory pulse ox necessitating 4 to 5 L both at rest and with ambulation which is her home order already though she did not understand this and thought that she was only supposed to wear oxygen as needed. I discussed with her the plan for discharge today she expressed understanding Jackelyn is going home and would like to go home today. Will resume all of her home medications on discharge. 2. UTI secondary to Citrobacter and Klebsiella?she received 3 days of Rocephin and will be discharged on 3 more days of cefdinir to complete treatment both were sensitive to Rocephin 3. Type 2 diabetes with CKD 3B, COPD, hypothyroidism are all chronic medical conditions which complicate her care. Her home medications were continued where appropriate of note her TSH was normal at 0.694 however her T4 was elevated at 2.2 and her T3 was low at 2.1 I do recommend outpatient follow-up with her PCP for repeat evaluation of her thyroid panel in a few weeks. Physical Exam Narrative General: Alert, Oriented x3, Cooperative, No apparent distress HEENT: Atraumatic, PERRLA, EOMI, Normocephalic Oral: Moist Mucosa Neck: Supple, No JVD Lungs: Diminished, Normal air movement, scattered rhonchi, No wheeze, No rales Cardiovascular: Irregular rate and rhythm, Normal S1, Normal S2, No murmurs Abdomen: Soft, Non Tender, Non-Distended, No Hepato-splenomegaly Extremities: Edema, Capillary Refill Less than 3 Seconds Skin: No rashes, No breakdown Musculoskeletal: No Tenderness to Palpation of Joints or Extremities Neurological: No focal neurological deficits, Motor Exam 5/5 strength throughout, Sensory exam intact to light touch and pain Psych/Mental Status: Normal Affect, Appropriate Weight / BMI Weight Weight: 262 lb 12.656 oz Body Mass Index (BMI) 39.9 ABG / Lab / Microbiology Data 12/28/23 07:25 12/29/23 03:10 Laboratory: Laboratory Results - last 24 hr 12/28/23 16:40: POC Glucose 155 H 12/28/23 21:45: POC Glucose 165 H 12/29/23 02:19: POC Glucose 140 H 12/29/23 03:10: Sodium 138, Potassium 3.7, Chloride 101, Carbon Dioxide 32.0, A nion Gap 4 L, BUN 27 H, Creatinine 1.51 H, Estim Creat Clear Calc 37.68, Est GFR (MDRD) Af Amer 42 L, Est GFR (MDRD) Non-Af 35 L, BUN/Creatinine Ratio 17.9, G lucose 144 H, Calcium 8.7, Magnesium 2.2 12/29/23 06:19: POC Glucose 139 H Microbiology: Microbiology 12/26/23 13:07 Urine, Clean Catch Urine Culture - Final Citrobacter freundii Klebsiella pneumoniae ozaenae 12/26/23 20:55 Mucosa - Nasopharyngeal Respiratory Panel (PCR) - Final 12/26/23 19:08 Nasal Secretion SARS-CoV-2 Antigen (Rapid) - Final 12/26/23 12:22 Mucosa - Nose SARS-CoV-2, Influenza & RSV (PCR) - Final D/C Instructions Discharge Diet: Low fat / Low cholesterol and 6 Cup Fluid Restriction Call your doctor if you observe: Fever of 101 or Higher, Shortness of breath, Dizziness, Fainting spells, Swelling in the ankles, Chest pain and Increased palpitations (irregular heartbeat) Meaningful Use Info Meaningful Use Meaningful Use Diagnoses (Choose all that apply): None applicable Ischemic Stroke Statin Dosing Therapy Reference: STATIN DOSE THERAPY REFERENCE: * Patients > 75 years receive moderate or high dose statin therapy. * Patients 75 years or YOUNGER should receive HIGH intensity statin dose unless contraindicated. You will be required to document reason for non-treatment if statin daily dose does not meet guidelines. HIGH DOSE STATIN THERAPY DAILY Atorvastatin > than or = to 40 mg Rosuvastatin > than or = to 20 mg Amlodipine + Atorvastatin > than or = to 2.5/40 mg Ezetimibe + Simvastatin 10/80 mg Simvastatin 80mg Discharge Plan Admission Admit Date/Time: 12/26/23 17:26 Attending Provider: Ephraim Oneil Primary Care Provider: Alexy Douglas Chi Consulting Providers: Christina Menard Discharge Orders/Prescriptions Prescriptions: New cefdinir 300 mg capsule 300 mg PO BID Qty: 6 0RF Continued furosemide 40 mg tablet 40 mg PO BID metoprolol tartrate 100 mg tablet 100 mg PO BID Qty: 180 3RF diltiazem HCl 240 mg capsule,extended release 24hr 240 mg PO DAILY Qty: 90 3RF glimepiride 1 mg tablet 1 mg PO QDAY cholecalciferol (vitamin D3) [Vitamin D3] 25 mcg (1,000 unit) capsule 25 mcg PO QDAY Entresto 49-51 mg tablet 1 tab PO BID levothyroxine 200 mcg tablet 200 mcg PO DAILY rosuvastatin 40 mg tablet 40 mg PO QHS polysaccharide iron complex [Ferrex 150] 150 mg iron Capsule 150 mg PO DAILY 30 Days Qty: 30 0RF potassium chloride 20 mEq Tablet,Er Particles/Crystals 20 meq PO BIDCM 30 Days Qty: 60 0RF levothyroxine 50 mcg Tablet 50 mcg PO DAILY@0600 Qty: 0 0RF Eliquis 2.5 mg tablet 2.5 mg PO DAILY insulin degludec [Tresiba FlexTouch U-100] 100 unit/mL (3 mL) insulin pen 30 unit subcut DAILY Referrals / Follow Up: Alexy Douglas Chi, MD [Primary Care Provider] - Disposition Disposition (needs filled in before D/C Order can be placed): Home, Self Care Charges/Coding Visit Charges Inpatient E&M: 85061 Disch Hosp >30min
== END 2023-12-29 10:48 | disposition home or self-care (01) | DRG 291 ==
LOC: ED 17:25 → PCU 18:12
PROVIDERS: Internal Medicine; Admitting Provider Internal Medicine; Emergency Provider Emergency Medicine; PCP Family Medicine Geriatric Medicine; Visit Provider Family Medicine
DX: I13.0 Hypertensive heart and chronic kidney disease with heart failure and stage 1 through stage 4 chronic kidney disease, or unspecified chronic kidney disease (principal); I50.33 Acute on chronic diastolic (congestive) heart failure; J90 Pleural effusion, not elsewhere classified; Z68.41 Body mass index [BMI] 40.0-44.9, adult; N39.0 Urinary tract infection, site not specified; E11.22 Type 2 diabetes mellitus with diabetic chronic kidney disease; E03.9 Hypothyroidism, unspecified; B96.1 Klebsiella pneumoniae [K. pneumoniae] as the cause of diseases classified elsewhere; B96.89 Other specified bacterial agents as the cause of diseases classified elsewhere; N18.32 Chronic kidney disease, stage 3b; J44.9 Chronic obstructive pulmonary disease, unspecified; I48.91 Unspecified atrial fibrillation; E66.01 Morbid (severe) obesity due to excess calories; E78.00 Pure hypercholesterolemia, unspecified; Z79.4 Long term (current) use of insulin; Z79.84 Long term (current) use of oral hypoglycemic drugs; Z87.891 Personal history of nicotine dependence; R09.02 Hypoxemia; Z79.01 Long term (current) use of anticoagulants; Z90.710 Acquired absence of both cervix and uterus; Z79.890 Hormone replacement therapy; Z85.3 Personal history of malignant neoplasm of breast; Z79.899 Other long term (current) drug therapy; Z98.41 Cataract extraction status, right eye; Z98.42 Cataract extraction status, left eye; Z90.10 Acquired absence of unspecified breast and nipple
CPT/HCPCS: 32555; 36415; 71046; 80048; 80053; 81001; 82962; 83605; 83690; 83735; 83880; 84100; 84439; 84443; 84481; 84484; 85025; 87077; 87086; 87088; 87186; 87631; 87633; 87811; 93005; 93306; 94640; 94668; 97161; 97166; 99284; Q9957; A4216; C8929; J1940

== ENCOUNTER → 2023-12-31 | Outpatient (CLI) | payer MEDICARE, OTHER, SELFPAY ==
--- NOTE | 2023-12-31 16:16 | RAD_ITS ---
INDICATION: SOB EXAMINATION/TECHNIQUE: X-RAY - XR Chest 2 Views COMPARISON: 12/26/2023. FINDINGS: The lungs are unchanged. The cardiomediastinal silhouette is stable. Slight increase in small bilateral pleural effusions. No pneumothorax. The osseous structures are unchanged. RAD/Chest PA and Lateral IMPRESSION: Slight increase in small bilateral pleural effusions. Otherwise, no change from prior study. Electronically Signed: Gerardo Carter MD at 16:17 EDT ,
== END | disposition home or self-care (01) ==
LOC: RAD 16:15
PROVIDERS: PCP Family Medicine Geriatric Medicine; Referring Provider Family Medicine Geriatric Medicine; Visit Provider Family Medicine Geriatric Medicine
DX: R06.02 Shortness of breath (principal)
CPT/HCPCS: 71046

== ENCOUNTER → 2024-01-06 | Outpatient (CLI) | payer MEDICARE, OTHER, SELFPAY | END | disposition home or self-care (01) | PROVIDERS: PCP Family Medicine Geriatric Medicine; Referring Provider Urology; Visit Provider Urology | DX: N39.0 Urinary tract infection, site not specified (principal) | CPT/HCPCS: 87077; 87086; 87088; 87186 ==

== ENCOUNTER 2024-01-15 16:44 | Inpatient (IN) | payer MEDICARE, OTHER, SELFPAY ==
[2024-01-15] VITALS (20 sets, daily range): BP systolic 104–179; BP diastolic 78–107; PULSE 115–140; RESP 16–41; TEMP 36.6–37.3; O2SAT 90–97; BMI 40.3
--- NOTE | 2024-01-15 17:17 | RAD_ITS ---
STUDY: X-RAY CHEST REASON FOR EXAM: Female, 84 years old. COUGH TECHNIQUE: AP portable COMPARISON: December 31, 2023. FINDINGS: There is a small right pleural effusion and minor subsegmental atelectasis in right lower lobe. There is a larger effusion on the left with consolidation of left lower lobe. . Heart is mildly enlarged.. Normal mediastinum and binh. Normal visualized pulmonary arteries. Mildly calcified aortic arch and descending thoracic aorta. Normal visualized thoracic spine. Normal visualized ribs, clavicles, and shoulders. There is no demonstrated abnormality of the visualized soft tissue structures of the upper abdomen. There is slightly improved aeration in the right lower lobe since previous study. The left pleural effusion appears slightly larger.. No other significant change since prior exam RAD/Chest 1 View (Portable) IMPRESSION: Slightly increasing size of left pleural effusion and mild left lower lobe consolidation Mild residual atelectasis in right lower lobe and small effusion with interval improvement since previous exam Electronically Signed: Delon Stratton MD at 18:15 EDT ,
--- NOTE | 2024-01-15 17:36 | EKG12_ITS ---
Test Reason : SOB Blood Pressure : */* mmHG Vent. Rate : 135 BPM Atrial Rate : * BPM P-R Int : * ms QRS Dur : 128 ms QT Int : 334 ms P-R-T Axes : * 90 -42 degrees QTcB Int : 501 ms Atrial fibrillation with rapid ventricular response Right bundle branch block T wave abnormality, consider inferior ischemia Abnormal ECG Confirmed by KATIE SELF, ISAÍAS ([id number]), medical editor PAUL GALAN ([id number]) on 01/17/2024 8:16:16 AM Referred By: HANNAH/ANDREINA Confirmed By: ISAÍAS WILSON MD
--- NOTE | 2024-01-15 17:52 | EDS_ITS ---
HPI History of Present Illness Chief Complaint: Shortness of Breath Informant: patient and family Narrative Narrative: History of COPD, heart failure, A-fib on 5 L oxygen at home along with Eliquis presents worsening cough since yesterday morning. Reports dyspnea. Reports palpitations. Subjective fevers and chills. No sick contacts. No vomiting or diarrhea. No chest pains. Patient on diltiazem. She is taking all her medications. Denies any significant weight gain. She is on diuretic also. She is followed by Dr. merino. Prior similar symptoms: Yes PFSH PFS Medical History CHF exacerbation Congestive heart failure (CHF) IDDM (insulin dependent diabetes mellitus) Diabetes Rheumatoid arthritis On home oxygen therapy Low iron Insulin dependent diabetes mellitus Wears glasses Wears dentures Cancer History of steroid therapy History of renal disease High cholesterol Restless legs Injury of back Back pain Dietary restriction Shortness of breath on exertion History of pain when walking History of edema History of echocardiogram History of stress test Cardiology follow-up encounter History of CHF (congestive heart failure) History of atrial fibrillation Hyperlipidemia Overactive bladder Hypothyroidism Diabetes mellitus Hypertension Chronic kidney disease, stage 3b Former smoker Atrial fibrillation Hypertension Chronic anticoagulation Skin cancer, basal cell Actinic keratosis Skin lesion Skin cancer Chronic diastolic (congestive) heart failure Longstanding persistent atrial fibrillation Diastolic dysfunction Secondary pulmonary arterial hypertension Non-rheumatic tricuspid valve insufficiency Stage 2 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 Right hip pain Disc degeneration, lumbar Fatigue UTI (urinary tract infection) Hypoxia Hypersomnia COPD (chronic obstructive pulmonary disease) Obesity Tobacco dependence in remission CKD (chronic kidney disease) stage 3, GFR 30-59 ml/min Breast cancer Essential (primary) hypertension BMI 39.0-39.9,adult Erosion of bladder suspension mesh SHAKIRA (stress urinary incontinence, female) Home Medications ?Medication ?Instructions ?Recorded ?Last Taken ?Type metoprolol tartrate 100 mg tablet 100 mg PO BID BP/heart rate #180 04/05/23 Unknown Rx tabs diltiazem HCl 240 mg 240 mg PO DAILY heart #90 caps 04/26/23 Unknown Rx capsule,extended release 24 hr levothyroxine 50 mcg tablet 50 mcg PO DAILY@0600 #0 tabs 08/02/23 Unknown Rx polysaccharide iron complex 150 mg 150 mg PO DAILY 30 days #30 caps 08/02/23 Unknown Rx iron capsule (Ferrex) potassium chloride 20 mEq 20 meq PO BIDCM 30 days #60 tabs 08/02/23 Unknown Rx tablet,extended release(part/cryst) apixaban 2.5 mg tablet (Eliquis) 2.5 mg PO DAILY blood thinner 08/20/23 Unknown History furosemide 40 mg tablet 40 mg PO BID 10/21/23 Unknown History sacubitril 49 mg-valsartan 51 mg 1 tab PO BID 10/21/23 Unknown History tablet (Entresto) levothyroxine 200 mcg tablet 200 mcg PO DAILY 12/02/23 Unknown History rosuvastatin 40 mg tablet 40 mg PO QHS 12/02/23 Unknown History cholecalciferol (vitamin D3) 25 25 mcg PO QDAY 12/20/23 Unknown History mcg (1,000 unit) capsule (Vitamin D3) glimepiride 1 mg tablet 1 mg PO QDAY 12/20/23 Unknown History insulin degludec 100 unit/mL (3 30 unit subcut DAILY 12/26/23 Unknown History mL) subcutaneous pen (Tresiba FlexTouch U-100 insulin) cefdinir 300 mg capsule 300 mg PO BID #6 caps 12/29/23 Unknown Rx Allergy/AdvReac Type Severity Reaction Status Date / Time Sulfa (Sulfonamide Allergy PEELING Verified 01/15/24 16:46 Antibiotics) RASH Family History Mother Colon cancer Cancer skin, bladder Daughter Cancer Thyroid Sister CAD (coronary artery disease) Surgical History Hx of colonoscopy Hx of right cataract extraction Hx of left cataract extraction History of excision of lesion Hx of local excision of skin lesion History of cardioversion (03/20/19) History of hysterectomy History of partial mastectomy History of left heart catheterization (05/31/14) Social History household members: none housing: house current occupational status: retired Smoking Status: Former smoker how long ago did patient quit smokin, 2p/day second hand exposure: Yes alcohol intake: current alcohol intake frequency: holidays/special occasions only substance use type: does not use ROS ROS ED Constitutional Constitutional ED: Denies chills, fever(s) or sweats Eyes Eyes: Denies change in vision ENT ENT ED: Denies dysphagia or sore throat Cardiovascular Cardiovascular: Reports leg edema, palpitations and racing heartbeat; Denies chest pain Respiratory/Chest Respiratory/Chest: Reports cough and dyspnea; Denies dyspnea on exertion Gastrointestinal Gastrointestinal: Denies abdominal pain, diarrhea, nausea or vomiting Genitourinary Genitourinary ED: Denies dysuria, hematuria or urinary frequency Musculoskeletal Musculoskeletal: Denies back pain, extremity pain or neck pain Integumentary Denies rash or wounds Neurologic Neurologic: Denies headache(s), paresthesias or weakness EXAM Physical Exam Const Vital Signs: 01/15/24 16:46 01/15/24 17:04 01/15/24 17:04 Temperature 99.1 F Temperature Source Oral Pulse Rate 138 H Respiratory Rate 25 H 33 H Respiratory Effort Respiratory Pattern Blood Pressure 134/99 H Blood Pressure Mean 110 Pulse Ox 94 97 Oxygen Delivery Method Nasal Cannula Nasal Cannula Nasal Cannula Oxygen Flow Rate (L/min) 5 6 6 01/15/24 18:14 01/15/24 18:30 01/15/24 19:31 Temperature Temperature Source Pulse Rate 128 H 129 H Respiratory Rate 30 H 29 H Respiratory Effort Short of Breath Respiratory Pattern Tachypnea Blood Pressure 142/81 H 155/78 H Blood Pressure Mean 101 97 Pulse Ox 95 Oxygen Delivery Method Room Air Nasal Cannula Oxygen Flow Rate (L/min) 6 01/15/24 20:00 01/15/24 20:15 01/15/24 20:30 Temperature Temperature Source Pulse Rate 128 H 130 H 140 H Respiratory Rate 41 H 35 H 31 H Respiratory Effort Respiratory Pattern Blood Pressure 125/107 H 148/83 H Blood Pressure Mean 114 104 Pulse Ox Oxygen Delivery Method Oxygen Flow Rate (L/min) 01/15/24 20:45 01/15/24 21:00 01/15/24 21:00 Temperature Temperature Source Pulse Rate 124 H 115 H 127 H Respiratory Rate 28 H 16 30 H Respiratory Effort Respiratory Pattern Blood Pressure 149/105 H 149/105 H Blood Pressure Mean 119 115 Pulse Ox 90 Oxygen Delivery Method Nasal Cannula Oxygen Flow Rate (L/min) 6 01/15/24 21:30 01/15/24 22:00 01/15/24 22:02 Temperature 98 F Temperature Source Pulse Rate 130 H 117 H 130 H Respiratory Rate 39 H 24 H 20 H Respiratory Effort Respiratory Pattern Blood Pressure 126/90 H 154/105 H Blood Pressure Mean 102 121 Pulse Ox 97 Oxygen Delivery Method Oxygen Flow Rate (L/min) 01/15/24 22:08 01/15/24 22:15 01/15/24 22:30 Temperature Temperature Source Pulse Rate 127 H 122 H 118 H Respiratory Rate 33 H 30 H 26 H Respiratory Effort Respiratory Pattern Blood Pressure 153/105 H 159/84 H 154/100 H Blood Pressure Mean 121 105 110 Pulse Ox 95 Oxygen Delivery Method Oxygen Flow Rate (L/min) 6 01/15/24 22:40 01/15/24 22:40 01/15/24 22:45 Temperature Temperature Source Pulse Rate 125 H 125 H 125 H Respiratory Rate 28 H 26 H 36 H Respiratory Effort Respiratory Pattern Blood Pressure 104/100 H 120/103 H 143/82 H Blood Pressure Mean 101 110 100 Pulse Ox 95 Oxygen Delivery Method Oxygen Flow Rate (L/min) 6 Positive well nourished and well developed Constitutional Narrative: 6 L nasal cannula, no respiratory distress. General Appearance ED: well developed and NAD HEENT Reports moist mucous membranes normocephalic and atraumatic Eyes EOMs intact bilaterally and conjunctivae normal General Eye ED: Yes normal appearance of both eyes Neck no lymphadenopathy and supple General: Negative for tenderness Chest Wall Chest: Negative for tenderness Resp normal respiratory effort and normal air movement Effort and Inspection: symmetric chest movement; Negative for respiratory distress Cardio no murmurs Rate: tachycardic Rhythm: abnormal rhythm Peripheral Pulses: pulses 2+ throughout GI normal to inspection, nondistended, normoactive bowel sounds and non-tender Palpation: Negative for guarding or rebound tenderness present Back/Spine no CVA tenderness and no thoracic nor lumbar tenderness Extremity normal to inspection Extremity Narrative: 1-2+ lower extremity edema. General Extremety ED: Yes edema; Negative for tenderness General Extremity: edema Neuro oriented x3 and no sensory deficits noted Sensorium / Orientation: awake and alert Skin no rashes or lesions noted and no wounds MDM MDM MDM Narrative Medical decision making narrative: Interventions / MDM: Differential diagnosis: A-fib with RVR, left lower lobe pneumonia, CHF, pleural effusions Diagnosis considered but do not suspect: N/A My EKG interpretation: A-fib RVR rate of 135, no ST changes. Right bundle branch block. T wave inversions anterior inferior leads. Chronic findings from 20 days ago. Imaging independently reviewed and interpreted by myself: 1 view chest x-ray bilateral pleural effusion concerning for left lower lobe consolidation also read by radiology. External documents reviewed: N/A Test considered but not ordered:N/A ED course: Patient A-fib with RVR she is on 6 L oxygenation. No wheezing. Tachycardic subjective fevers with increased respiratory rate. 2 out of 4 SIRS criteria. Sepsis workup initiated. She is ordered for 20 mg IV Cardizem with her tachycardic rate. X-ray with pneumonia concerns. Will start antibiotics. Lactic acid 1.0 procalcitonin 0.13. 1919: Feeling better however heart rate still 120s to low 130s blood pressure systolic 150. Will give additional bolus of Cardizem. Possibly drip if does not respond. Patient will need admission. 2129: Condition bolus given initially down to 115's however in the room she go back to the high 120s 130s. She reported increasing dyspnea. Being treated pneumonia versus pleural effusion slight elevated BNP with her leg swelling. Blood pressure stable. Will order IV Lasix. She did not take her nighttime [place] miguel of 2.5 mg which was also ordered. Cardizem drip will be ordered. Will discuss with hospitalist for admission. I spoke with hospitalist Dr. Busby. Will place patient into ICU for close monitoring and management. Re-evaluation: stable Disposition discussed with patient/family/significant other: Patient Case discussed with consulting clinician: Hospitalist This note was generated with [employer] dictation software. It may contain incorrect words, spelling, and punctuation that were not noted in checking the note before signing. Lab Data Attestation: I reviewed the patient's lab results. Labs: Laboratory Results - last 24 hr 01/15/24 01/15/24 01/15/24 18:00 18:15 19:45 WBC 11.9 H RBC 3.70 L Hgb 10.0 L Hct 33.7 L MCV 91.1 MCH 27.0 MCHC 29.7 L RDW Std Deviation 55.8 H RDW Coeff of Sudha 16.7 H Plt Count 259 MPV 10.5 Immature Gran % (Auto) 0.600 Neut % (Auto) 87.6 H Lymph % (Auto) 7.2 L [place] % (Auto) 3.6 Eos % (Auto) 0.8 Baso % (Auto) 0.2 Absolute Neuts (auto) 10.5 H Absolute Lymphs (auto) 0.86 Nucleated RBC % 0 PT 15.3 H INR 1.2 APTT 25.1 Sodium 143 Potassium 3.9 Chloride 107 Carbon Dioxide 34.0 H Anion Gap 2 L BUN 21 H Creatinine 1.23 H Estim Creat Clear Calc 45.62 Est GFR (MDRD) Af Amer 53 L Est GFR (MDRD) Non-Af 44 L BUN/Creatinine Ratio 17.1 Glucose 124 H Lactic Acid 1.0 Calcium 8.9 Troponin I High Sens 26 B-Natriuretic Peptide 577.2 H Procalcitonin 0.13 H Urine Color Yellow Urine Clarity Sl. Cloudy Urine pH 5.0 Ur Specific [place] 1.025 Urine Protein 500 H Urine Glucose (UA) Normal Urine Ketones Negative Urine Occult Blood 25 H Urine Nitrite Negative Urine Bilirubin Negative Urine Urobilinogen Normal Ur Leukocyte Esterase Negative Urine RBC 0-5 SEEN Urine WBC 0-5 SEEN Ur Squamous Epith Cells 0 SEEN Amorphous Sediment 2+ Urine Bacteria 2+ Fine Granular Casts 0-5 SEEN Urine Mucus 0 SEEN Radiography Diagnostic Testing: Clinical Impression(s) from Imaging Studies Chest X-Ray 01/15/24 17:17 IMPRESSION: Slightly increasing size of left pleural effusion and mild left lower lobe consolidation Mild residual atelectasis in right lower lobe and small effusion with interval improvement since previous exam Electronically Signed: Delon Stratton MD at 18:15 EDT , Critical Care Time Critical Care Time: Yes Critical care time (excluding procedures): 30-74 minutes, Discussing w/Patient &/or Family/Adult Education Professional, Discussing w/Consultants, Arranging Admission or Transfer, Performing Direct Patient Care at Bedside and - (40 minutes) Discharge Plan Dx/Rx/DC Orders Clinical Impression: Pleural effusion, Atrial fibrillation, Pneumonia, CHF (congestive heart failure), Chronic anticoagulation Disposition Disposition: Acute Care [facility]
[2024-01-15] MEDS: dilTIAZem 25 MG/5 ML Vial 20 MG IV BOLUS (18:11)
[2024-01-15 18:13] LABS: Absolute Lymphocyte Count 0.86 X10^3/uL (0.83-4.51); Absolute Neutrophil Count 10.5 X10^3/uL (2.0-7.7); Basophil# 0.02 X10^3/uL; Basophil% 0.2 % (0-1); Eosinophil# 0.09 X10^3/uL; Eosinophils% 0.8 % (0-5); Hematocrit 33.7 % (37-47); Lymphocyte # 0.86 X10^3/ul (0.83-4.51); Lymphocyte % 7.2 % (19-41); Mean Corp Hgb Conc 29.7 g/dL (32-36); Mean Corpuscular Volume 91.1 fL (81-99); Mean Platelet Vol. 10.5 fl (6.2-12.0); Monocyte# 0.43 X10^3/uL; Monocyte% 3.6 % (0-10); NRBC Flagged by Analyzer 0 % (0-5); Neutrophil # 10.47 X10^3/uL (2.7-7.7); Neutrophil % 87.6 % (47-70); Platelet Count 259 K/mm3 (150-450); RBC Distribution Width CV 16.7 % (11.6-14.6); RBC Distribution Width SD 55.8 fl (35.1-43.9); White Blood Count 11.9 K/mm3 (4.4-11.0)
[2024-01-15 18:20] LABS: International Normalized Ratio 1.2; Prothrombin Time (Protime)PT. 15.3 SECONDS (11.7-14.9)
[2024-01-15 18:21] LABS: Partial Thromboplast Time 25.1 Seconds (24.1-36.2)
[2024-01-15 18:28] LABS: Anion Gap 2 (5-15); BUN 21 mg/dL (7-18); BUN/Creat Ratio 17.1 RATIO (10-20); Calcium,Total 8.9 mg/dL (8.5-10.1); Chloride 107 mmol/L (98-107); Creatinine, Serum 1.23 mg/dL (0.55-1.02); EST Glomerular Filtration Rate 44 mL/min (>60); Est Glom Filt Rate - Afr Amer 53 mL/min (>60); Estimated Creatinine Clearance 45.62 ml/min; Glucose 124 mg/dL (74-106); Potassium 3.9 mmol/L (3.5-5.1); Sodium Level 143 mmol/L (136-145); Troponin-I HS 26 pg/mL (3.0-54.0)
[2024-01-15 18:48] LABS: Procalcitonin 0.13 ng/mL (0.00-0.09)
[2024-01-15] MEDS: Ceftriaxone 1 GM/50 ML BAG IV (19:49)
[2024-01-15] MEDS: Azithromycin 500 MG in Dextrose 5%-Water (250mL Bag) 250 ML 250 MG IV (19:49)
[2024-01-15 20:06] LABS: Mucous, Urine 0 SEEN /hpf (<or=2+); Squamous Epithelial Cells - UA 0 SEEN /hpf (5-10)
[2024-01-15 20:20] LABS: Color, Urine Yellow (Yellow); Glucose, Dipstick Normal (Normal); Ketone-Dipstick Negative (Negative); Leukocyte Esterase-Dipstick Negative /ul (Negative); Nitrite-Dipstick Negative (Negative); Occult Blood-Urine 25 /ul (Negative); Protein-Dipstick 500 mg/dl (Negative); Specific Gravity, Urine 1.025 (1.002-1.030); Urine Bilirubin Dipstick Negative (Negative); Urine Clarity Sl. Cloudy (Clear); Urine Urobilinogen Normal (Normal)
[2024-01-15 20:25] LABS: BNP,B-Type NATRIURETIC PEPTIDE 577.2 pg/mL (0-100)
[2024-01-15 20:40] LABS: Fine Granular Cast- Urine 0-5 SEEN /lpf (0-5)
[2024-01-15 20:41] LABS: Amorphous Sediment 2+; Bacteria 2+ /hpf (None Seen); Red Blood Cells-Urine 0-5 SEEN /hpf (0-5); White Blood Cells 0-5 SEEN /hpf (0-5)
[2024-01-15] MEDS: dilTIAZem 25 MG/5 ML Vial IV BOLUS (21:00)
[2024-01-15] MEDS: Furosemide 40 MG/4 ML Vial IV (22:07)
[2024-01-15] MEDS: Diltiazem 125 MG in Dextrose 5%-Water (100mL Bag) 100 ML IV (22:08)
[2024-01-15] MEDS: APIXABAN 2.5 MG TABLET (WCH) PO (22:38)
--- NOTE | 2024-01-15 23:07 | HP.PCM.HOS_ITS ---
HPI - General General Date of Admission: 01/15/24 Date of Service: 01/15/24 Chief Complaint: Shortness of breath worsening for more than a month HPI Narrative TONJA SÁNCHEZ, is a 84 F came to ED for progressive worsening of shortness of breath for more than a month but got really worse for last 4 to 5 days. She has also been coughing thick flame whitish for last 2 to 3 days. Usually she is on 5 L of home oxygen 08/10 but she was dyspnea even at rest. Complaining of palpitation. Subjective fevers and chills and chest congestion. In ED, she was found A-fib with RVR. She also has leg swelling. Denies chest pain, pressure, tightness or anginal-like symptoms. She follows clinical haematologist Dr. Tesfaye and pad making machine operator Dr. Edgardo Greenwood. In ED: Heart rate was 138/min, Tmax 99.1, tachypneic RR 36/min and required 6 L of high flow oxygen. Chest x-ray was done yesterday reviewed showed increased left pleural effusion, left lower lobe consolidation and right lower lobe atelectasis. Patient is further admitted after IV ceftriaxone and azithromycin. Had 2 Cardizem IV bolus 25 mg and 20 mg but is still A-fib RVR therefore started on Cardizem drip. [facility] Medical History CHF exacerbation Congestive heart failure (CHF) IDDM (insulin dependent diabetes mellitus) Diabetes Rheumatoid arthritis On home oxygen therapy Low iron Insulin dependent diabetes mellitus Wears glasses Wears dentures Cancer History of steroid therapy History of renal disease High cholesterol Restless legs Injury of back Back pain Dietary restriction Shortness of breath on exertion History of pain when walking History of edema History of echocardiogram History of stress test Cardiology follow-up encounter History of CHF (congestive heart failure) History of atrial fibrillation Hyperlipidemia Overactive bladder Hypothyroidism Diabetes mellitus Hypertension Chronic kidney disease, stage 3b Former smoker Atrial fibrillation Hypertension Chronic anticoagulation Skin cancer, basal cell Actinic keratosis Skin lesion Skin cancer Chronic diastolic (congestive) heart failure Longstanding persistent atrial fibrillation Diastolic dysfunction Secondary pulmonary arterial hypertension Non-rheumatic tricuspid valve insufficiency Stage 2 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 Right hip pain Disc degeneration, lumbar Fatigue UTI (urinary tract infection) Hypoxia Hypersomnia COPD (chronic obstructive pulmonary disease) Obesity Tobacco dependence in remission CKD (chronic kidney disease) stage 3, GFR 30-59 ml/min Breast cancer Essential (primary) hypertension BMI 39.0-39.9,adult Erosion of bladder suspension mesh SHAKIRA (stress urinary incontinence, female) Home Medications ?Medication ?Instructions ?Recorded ?Last Taken ?Type metoprolol tartrate 100 mg tablet 100 mg PO BID BP/heart rate #180 04/05/23 Unknown Rx tabs diltiazem HCl 240 mg 240 mg PO DAILY heart #90 caps 04/26/23 Unknown Rx capsule,extended release 24 hr levothyroxine 50 mcg tablet 50 mcg PO DAILY@0600 #0 tabs 08/02/23 Unknown Rx polysaccharide iron complex 150 mg 150 mg PO DAILY 30 days #30 caps 08/02/23 Unknown Rx iron capsule (Ferrex) potassium chloride 20 mEq 20 meq PO BIDCM 30 days #60 tabs 08/02/23 Unknown Rx tablet,extended release(part/cryst) apixaban 2.5 mg tablet (Eliquis) 2.5 mg PO DAILY blood thinner 08/20/23 Unknown History furosemide 40 mg tablet 40 mg PO BID 10/21/23 Unknown History sacubitril 49 mg-valsartan 51 mg 1 tab PO BID 10/21/23 Unknown History tablet (Entresto) levothyroxine 200 mcg tablet 200 mcg PO DAILY 12/02/23 Unknown History rosuvastatin 40 mg tablet 40 mg PO QHS 12/02/23 Unknown History cholecalciferol (vitamin D3) 25 25 mcg PO QDAY 12/20/23 Unknown History mcg (1,000 unit) capsule (Vitamin D3) glimepiride 1 mg tablet 1 mg PO QDAY 12/20/23 Unknown History insulin degludec 100 unit/mL (3 30 unit subcut DAILY 12/26/23 Unknown History mL) subcutaneous pen (Tresiba FlexTouch U-100 insulin) cefdinir 300 mg capsule 300 mg PO BID #6 caps 12/29/23 Unknown Rx Allergy/AdvReac Type Severity Reaction Status Date / Time Sulfa (Sulfonamide Allergy PEELING Verified 01/15/24 16:46 Antibiotics) RASH Family History Mother Colon cancer Cancer skin, bladder Daughter Cancer Thyroid Sister CAD (coronary artery disease) Surgical History Hx of colonoscopy Hx of right cataract extraction Hx of left cataract extraction History of excision of lesion Hx of local excision of skin lesion History of cardioversion (03/20/19) History of hysterectomy History of partial mastectomy History of left heart catheterization (05/31/14) Social History household members: none housing: house current occupational status: retired Smoking Status: Former smoker how long ago did patient quit smokin, 2p/day second hand exposure: Yes alcohol intake: current alcohol intake frequency: holidays/special occasions only substance use type: does not use ROS ROS Narrative Constitutional: Reports acute on chronic fatigue and weakness. Subjective fever or chills HEENT: Reports systems reviewed and no addt'l complaints, except as documented Respiratory/Chest: As described in HPI CVS: As described in HPI. COPD history. Denies lung cancer. Gastrointestinal: Denies coffee ground emesis, hematemesis or vomiting Genitourinary: Denies burning urination or new urinary tract symptoms Musculoskeletal: Denies acute joint pain or limited range of motion. No acute injury. Chronic degenerative arthritis Neurologic: Denies seizure-like symptoms. skin: No ulcer. No rash Endocrinology: Reports systems reviewed and no addt'l complaints, except as documented Hematologic/Lymphatic: Reports systems reviewed and no addt'l complaints, except as documented Rest 14 ROS are negative except as mentioned in HPI Vital Signs Vital Signs Vital Signs: 01/15/24 16:46 01/15/24 17:04 01/15/24 17:04 Temperature 99.1 F Temperature Source Oral Pulse Rate 138 H Respiratory Rate 25 H 33 H Respiratory Effort Respiratory Pattern Blood Pressure 134/99 H Blood Pressure Mean 110 Pulse Ox 94 97 Oxygen Delivery Method Nasal Cannula Nasal Cannula Nasal Cannula Oxygen Flow Rate (L/min) 5 6 6 01/15/24 18:14 01/15/24 18:30 01/15/24 19:31 Temperature Temperature Source Pulse Rate 128 H 129 H Respiratory Rate 30 H 29 H Respiratory Effort Short of Breath Respiratory Pattern Tachypnea Blood Pressure 142/81 H 155/78 H Blood Pressure Mean 101 97 Pulse Ox 95 Oxygen Delivery Method Room Air Nasal Cannula Oxygen Flow Rate (L/min) 6 01/15/24 20:00 01/15/24 20:15 01/15/24 20:30 Temperature Temperature Source Pulse Rate 128 H 130 H 140 H Respiratory Rate 41 H 35 H 31 H Respiratory Effort Respiratory Pattern Blood Pressure 125/107 H 148/83 H Blood Pressure Mean 114 104 Pulse Ox Oxygen Delivery Method Oxygen Flow Rate (L/min) 01/15/24 20:45 01/15/24 21:00 01/15/24 21:00 Temperature Temperature Source Pulse Rate 124 H 115 H 127 H Respiratory Rate 28 H 16 30 H Respiratory Effort Respiratory Pattern Blood Pressure 149/105 H 149/105 H Blood Pressure Mean 119 115 Pulse Ox 90 Oxygen Delivery Method Nasal Cannula Oxygen Flow Rate (L/min) 6 01/15/24 21:30 01/15/24 22:00 01/15/24 22:02 Temperature 98 F Temperature Source Pulse Rate 130 H 117 H 130 H Respiratory Rate 39 H 24 H 20 H Respiratory Effort Respiratory Pattern Blood Pressure 126/90 H 154/105 H Blood Pressure Mean 102 121 Pulse Ox 97 Oxygen Delivery Method Oxygen Flow Rate (L/min) 01/15/24 22:08 01/15/24 22:15 01/15/24 22:30 Temperature Temperature Source Pulse Rate 127 H 122 H 118 H Respiratory Rate 33 H 30 H 26 H Respiratory Effort Respiratory Pattern Blood Pressure 153/105 H 159/84 H 154/100 H Blood Pressure Mean 121 105 110 Pulse Ox 95 Oxygen Delivery Method Oxygen Flow Rate (L/min) 6 01/15/24 22:40 01/15/24 22:40 01/15/24 22:45 Temperature Temperature Source Pulse Rate 125 H 125 H 125 H Respiratory Rate 28 H 26 H 36 H Respiratory Effort Respiratory Pattern Blood Pressure 104/100 H 120/103 H 143/82 H Blood Pressure Mean 101 110 100 Pulse Ox 95 Oxygen Delivery Method Oxygen Flow Rate (L/min) 6 Weight Weight: 264 lb 15.93 oz Body Mass Index (BMI) 40.3 Results Lab / Micro Data 01/15/24 18:00 01/15/24 18:00 Labs: Laboratory Results - last 24 hr 01/15/24 18:00: WBC 11.9 H, RBC 3.70 L, Hgb 10.0 L, Hct 33.7 L, MCV 91.1, MCH 27.0, MCHC 29.7 L, RDW Std Deviation 55.8 H, RDW Coeff of Sudha 16.7 H, Plt Count 259, MPV 10.5, Immature Gran % (Auto) 0.600, Neut % (Auto) 87.6 H, Lymph % (Auto) 7.2 L, Patrick % (Auto) 3.6, Eos % (Auto) 0.8, Baso % (Auto) 0.2, Absolute Neuts (auto) 10.5 H, Absolute Lymphs (auto) 0.86, Nucleated RBC % 0, PT 15.3 H, INR 1.2, APTT 25.1, Sodium 143, Potassium 3.9, Chloride 107, Carbon Dioxide 34.0 H, Anion Gap 2 L, BUN 21 H, Creatinine 1.23 H, Estim Creat Clear Calc 45.62, Est GFR (MDRD) Af Amer 53 L, Est GFR (MDRD) Non-Af 44 L, BUN/Creatinine Ratio 17.1, Glucose 124 H, Lactic Acid 1.0, Calcium 8.9, Troponin I High Sens 26 01/15/24 18:15: Procalcitonin 0.13 H 01/15/24 19:45: B-Natriuretic Peptide 577.2 H, Urine Color Yellow, Urine Clarity Sl. Cloudy, Urine pH 5.0, Ur Specific [place] 1.025, Urine Protein 500 H, Urine Glucose (UA) Normal, Urine Ketones Negative, Urine Occult Blood 25 H, Urine Nitrite Negative, Urine Bilirubin Negative, Urine Urobilinogen Normal, Ur Leukocyte Esterase Negative, Urine RBC 0-5 SEEN, Urine WBC 0-5 SEEN, Ur Squamous Epith Cells 0 SEEN, Amorphous Sediment 2+, Urine Bacteria 2+, Fine Granular Casts 0-5 SEEN, Urine Mucus 0 SEEN Micro: Microbiology 01/15/24 18:15 Mucosa - Nose SARS-CoV-2, Influenza & RSV (PCR) - Final Imaging Radiology Impression Chest X-Ray 01/15/24 17:17 IMPRESSION: Slightly increasing size of left pleural effusion and mild left lower lobe consolidation Mild residual atelectasis in right lower lobe and small effusion with interval improvement since previous exam Electronically Signed: Delon Stratton MD at 18:15 EDT , Assessment & Plan Assessment/Plan (1) Acute on chronic heart failure with preserved ejection fraction (HFpEF): (2) COPD exacerbation: (3) Pneumonia: PLAN: Plan This 84-year-old female admitted with multiple complaints including progressive worsening shortness of breath, leg swelling, cough with sputum production and increased hypoxia. 1. Chronic hypoxic and hypercarbic respiratory failure due to COPD exacerbation: Patient is being admitted in ICU. ABG shows 7.3 / on 6 L of oxygen. Patient is only on 5 L of oxygen at baseline 08/10's therefore does not meet criteria for acute respiratory failure. Discussed with respiratory therapist. Malter Operator consult. BiPAP ordered. 2. COPD exacerbation from left-sided pneumonia: Chest x-ray and evaluation reviewed and shows increased size of left pleural effusion and left lower lobe consolidation. Residual atelectasis and small effusion but improved since last thoracocentesis. Patient is being managed on scheduled bronchodilator, IV Solu- Medrol, Mucinex, incentive spirometry and Pep. Triple PCR for SARS-CoV-2, flu and RSV are negative. Pneumonia workup ordered. Patient started on IV ceftriaxone and azithromycin but upgraded to IV Zosyn. Continue azithromycin. Mild leukocytosis, WBC 11.9 thousand. 3. A-fib with RVR probably due to acute on chronic HFpEF/biventricular heart failure, severe pulmonary hypertension: Patient was last admitted in earlier part of December 2023 with A-fib RVR and CHF exacerbation. Patient had right- sided thoracocentesis on 12/23/2023. Echo done in December 2023 shows EF 65% with mild global RV systolic dysfunction, severe biatrial dilatation, aortic stenosis and severe TR with PASP 60 mmHg. Patient on maximum Cardizem drip. Metoprolol succinate 100 mg x 1 dose will resume metoprolol tartrate 100 mg twice daily. Rubber Covering Machine Operator consulted. Lasix 40 mg IV twice daily. Heart failure core measures including intake and output, fluid restriction less than 1500 mL, daily weight monitoring, kidney and electrolytes monitoring. Rubber Covering Machine Operator consulted for further medical management. Patient on guideline treatment with beta- triny, Entresto, Eliquis and high intensity statin AAA screen 4. CKD stage IIIb: Baseline creatinine is 1.50. BUN 25. Admitted with BUN/creatinine 21/1.23. Patient stated she is urinating less than her normal probably due to CHF exacerbation. Monitor kidney function. 5. Type 2 diabetes mellitus: Glucose in BMP 124. Patient on glimepiride 1 mg daily resumed. On Tresiba 30 units subcutaneous daily decreased to Lantus 20 units daily. Accu-Chek before meals and at bedtime with Humalog sliding scale coverage and hypoglycemia protocol. 6. Hypertension: BP was high 179/91. On Entresto. On Lasix. Labetalol 20 mg IV as needed for SBP more than 170 mmHg 7. Hypothyroidism: Home dose regimen. TSH and free T4 tomorrow a.m. 8. Morbid obesity: BMI 41.7 kg/m?. Nurses Educator consult. 9. DVT prophylaxis on Eliquis Living will/advanced directive/end of life care: Patient does not have living will or advanced directive. She has a negative power of assistant county attorney of health for daughter. After discussion of benefits/risks procedures involved with full code, DNR CC arrest and DNR CC, the patient opted for DNR CC arrest with no intubation. Patient doesn't want artificial life support including intubation, tube feed, ventilator and/chest compression and DC shock if needed. She is unclear about central venous catheter and vasopressor Total time spent in [id number] encounter in discussion of advanced directive 17 minutes. Laboratory Results 01/15/24 18:00: WBC 11.9 H, RBC 3.70 L, Hgb 10.0 L, Hct 33.7 L, MCV 91.1, MCH 27.0, MCHC 29.7 L, RDW Std Deviation 55.8 H, RDW Coeff of Sudha 16.7 H, Plt Count 259, MPV 10.5, Immature Gran % (Auto) 0.600, Neut % (Auto) 87.6 H, Lymph % (Auto) 7.2 L, Patrick % (Auto) 3.6, Eos % (Auto) 0.8, Baso % (Auto) 0.2, Absolute Neuts (auto) 10.5 H, Absolute Lymphs (auto) 0.86, Nucleated RBC % 0, PT 15.3 H, INR 1.2, APTT 25.1, Sodium 143, Potassium 3.9, Chloride 107, Carbon Dioxide 34.0 H, Anion Gap 2 L, B UN 21 H, Creatinine 1.23 H, Estim Creat Clear Calc 45.62, Est GFR (MDRD) Af Amer 53 L, Est GFR (MDRD) Non-Af 44 L, BUN/Creatinine Ratio 17.1, Glucose 124 H, Lactic Acid 1.0, Calcium 8.9, Troponin I High Sens 26 01/15/24 18:15: Procalcitonin 0.13 H 01/15/24 19:45: B-Natriuretic Peptide 577.2 H, Urine Color Yellow, Urine Clarity Sl. Cloudy, Urine pH 5.0, Ur Specific [place] 1.025, Urine Protein 500 H, Urine Glucose (UA) Normal, Urine Ketones Negative, Urine Occult Blood 25 H, Urine Nitrite Negative, Urine Bilirubin Negative, Urine Urobilinogen Normal, Ur Leukocyte Esterase Negative, Urine RBC 0-5 SEEN, Urine WBC 0-5 SEEN, Ur Squamous Epith Cells 0 SEEN, Amorphous Sediment 2+, Urine Bacteria 2+, Fine Granular Casts 0-5 SEEN, Urine Mucus 0 SEEN 01/16/24 00:26: Specimen Type ART, Sample Site L Radial, pH 7.37, Bicarbonate Actual 31.4 H, Total CO2 33, Base Excess 6 H, O2 Saturation 98, O2 % 6.0, ABG pCO2 54.7 H, ABG pO2 102 H, Kunal Test Positive, O2 Delivery Device Cannula, Vent Mode Not entered Clinical Impression(s) from Imaging Studies Chest X-Ray 01/15/24 17:17 IMPRESSION: Slightly increasing size of left pleural effusion and mild left lower lobe consolidation Mild residual atelectasis in right lower lobe and small effusion with interval improvement since previous exam Microbiology Past 72 Hours 01/15/24 18:15 Mucosa - Nose SARS-CoV-2, Influenza & RSV (PCR) - Final 2D echo 12/26/2023 Interpretation Summary The left ventricular ejection fraction is 65 %. Mild global right ventricular systolic dysfunction. There is severe biatrial dilatation. Moderate mitral annular calcification. Aortic sclerosis, no stenosis. Severe (4+) tricuspid valve insufficiency.. Severe pulmonary hypertension. Pulmonary artery systolic pressure estimated at 60 mmHg. Charges/Coding Visit Charges Inpatient E&M: 31167 Init Hosp L3 Procedures Hospitalists Procedures: 78444 Advncd Care Plan 30 Min
[2024-01-16] VITALS (35 sets, daily range): BP systolic 112–176; BP diastolic 61–112; PULSE 77–122; RESP 12–30; TEMP 36.2–36.8; O2SAT 92–98; BMI 41.7; BMI 41.8
[2024-01-16 00:29] LABS: Allen Test Positive; Base Excess 6 mmol/L (-2 to +2); Bicarbonate 31.4 mmol/L (22-26); Blood Gas Specimen Type ART; Mode Not entered; O2 Delivery Device Cannula; PO2 102 mmHG (75-100); SITE L Radial; SO2 98 % (95-99); Total Carbon Dioxide 33 mmol/L; pCO2 54.7 mmHg (35-45); pH 7.37 (7.35-7.45)
[2024-01-16] MEDS: Piperacil/Tazobactam 3.375 GM in 0.9% Normal Saline (50mL MB+) 50 ML IV ×4 (01:03→21:12)
[2024-01-16] MEDS: 0.9% Saline Lock 10 ML Syringe IV (02:43)
[2024-01-16] MEDS: guaiFENesin 1,200 MG Tablet 1200 MG PO ×3 (02:43→21:11)
[2024-01-16] MEDS: Metoprolol(XL)Succ 100 MG Tablet PO (02:46)
[2024-01-16 03:00] LABS: Troponin-I HS 21 pg/mL (3.0-54.0)
[2024-01-16] MEDS: Levothyroxine 100 MCG Tablet 200 MCG PO (05:10)
[2024-01-16] MEDS: Levothyroxine 50 MCG Tablet PO (05:10)
[2024-01-16 05:13] LABS: Cholesterol 114 mg/dL (200); High Density Lipoprotein 60 mg/dL; Triglycerides 72 mg/dL; Troponin-I HS 20 pg/mL (3.0-54.0); Very Low Density Lipoprotein 14 mg/dL (5-40)
[2024-01-16 06:03] LABS: Anion Gap 4 (5-15); BUN 22 mg/dL (7-18); BUN/Creat Ratio 16.5 RATIO (10-20); Calcium,Total 8.8 mg/dL (8.5-10.1); Chloride 104 mmol/L (98-107); Creatinine, Serum 1.33 mg/dL (0.55-1.02); EST Glomerular Filtration Rate 40 mL/min (>60); Est Glom Filt Rate - Afr Amer 49 mL/min (>60); Estimated Creatinine Clearance 41.61 ml/min; Glucose 135 mg/dL (74-106); Potassium 3.7 mmol/L (3.5-5.1); Sodium Level 139 mmol/L (136-145); T4 Free Direct 1.22 ng/dL (0.76-1.46)
--- NOTE | 2024-01-16 07:01 | PN.HOSP_ITS ---
Reason for Visit Reason for Visit: Diagnoses Acute on chronic diastolic (congestive) heart failure (01/15/24) Pneumonia, unspecified organism (01/15/24) Chronic obstructive pulmonary disease with (acute) exacerbation (01/15/24) Subjective Subjective Patient is an 84-year-old lady with underlying history of COPD who presented with progressive shortness of breath cough and sore throat. An assessment of acute on chronic hypoxic respiratory failure secondary to COPD exacerbation and left-sided pneumonia made placed on noninvasive ventilation BiPAP admitted to the intensive care unit for further management Objective Data Objective Data Vital Signs: Vital Signs Temp Pulse Resp BP Pulse Ox O2 Del Method O2 Flow Rate 97.8 F 95 18 149/85 H 94 Nasal Cannula 5 01/16/24 01:00 01/16/24 06:00 01/16/24 06:00 01/16/24 06:00 01/16/24 06:00 01/16/24 06:00 01/16/24 06:00 FiO2 35 01/16/24 05:00 Oxygen Flow Rate (L/min) 5 Oxygen Delivery Method Nasal Cannula Weight: 120.7 kg Body Mass Index (BMI) 41.8 Intake & Output: Intake and Output for Last 24 Hours 01/14/24 01/15/24 01/16/24 23:59 23:59 23:59 Intake Total 316.00 / 323.50 132.5 / 132.5 Output Total 400 / 400 Balance 316.00 / 323.50 -267.5 / -267.5 Lab / Micro Data 01/15/24 18:00 01/16/24 04:30 Labs: Laboratory Results - last 24 hr 01/15/24 18:00: WBC 11.9 H, RBC 3.70 L, Hgb 10.0 L, Hct 33.7 L, MCV 91.1, MCH 27.0, MCHC 29.7 L, RDW Std Deviation 55.8 H, RDW Coeff of Sudha 16.7 H, Plt Count 259, MPV 10.5, Immature Gran % (Auto) 0.600, Neut % (Auto) 87.6 H, Lymph % (Auto) 7.2 L, [place] % (Auto) 3.6, Eos % (Auto) 0.8, Baso % (Auto) 0.2, Absolute Neuts (auto) 10.5 H, Absolute Lymphs (auto) 0.86, Nucleated RBC % 0, PT 15.3 H, INR 1.2, APTT 25.1, Sodium 143, Potassium 3.9, Chloride 107, Carbon Dioxide 34.0 H, Anion Gap 2 L, BUN 21 H, Creatinine 1.23 H, Estim Creat Clear Calc 45.62, Est GFR (MDRD) Af Amer 53 L, Est GFR (MDRD) Non-Af 44 L, BUN/Creatinine Ratio 17.1, Glucose 124 H, Lactic Acid 1.0, Calcium 8.9, Troponin I High Sens 26 01/15/24 18:15: Procalcitonin 0.13 H 01/15/24 19:45: B-Natriuretic Peptide 577.2 H, Urine Color Yellow, Urine Clarity Sl. Cloudy, Urine pH 5.0, Ur Specific [place] 1.025, Urine Protein 500 H, Urine Glucose (UA) Normal, Urine Ketones Negative, Urine Occult Blood 25 H, Urine Nitrite Negative, Urine Bilirubin Negative, Urine Urobilinogen Normal, Ur Leukocyte Esterase Negative, Urine RBC 0-5 SEEN, Urine WBC 0-5 SEEN, Ur Squamous Epith Cells 0 SEEN, Amorphous Sediment 2+, Urine Bacteria 2+, Fine Granular Casts 0-5 SEEN, Urine Mucus 0 SEEN 01/16/24 02:36: Troponin I High Sens 21 01/16/24 04:30: Sodium 139, Potassium 3.7, Chloride 104, Carbon Dioxide 32.0, A nion Gap 4 L, BUN 22 H, Creatinine 1.33 H, Estim Creat Clear Calc 41.61, Est GFR (MDRD) Af Amer 49 L, Est GFR (MDRD) Non-Af 40 L, BUN/Creatinine Ratio 16.5, G lucose 135 H, Calcium 8.8, Troponin I High Sens 20, Triglycerides 72, Cholesterol 114, LDL Cholesterol 40, VLDL Cholesterol 14, HDL Cholesterol 60, TSH 1.420, Free T4 1.22 Micro: Microbiology 01/16/24 19:45 Urine Catheter - Sidhu Legionella Antigen - Final 01/16/24 19:45 Urine Catheter - Sidhu Streptococcus pneumoniae Antigen (M - Final 01/15/24 18:15 Mucosa - Nose SARS-CoV-2, Influenza & RSV (PCR) - Final ABG Data ABG results: ABG 01/16/24 00:26 Specimen Type ART Sample Site L Radial pH 7.37 Bicarbonate Actual 31.4 H Total CO2 33 Base Excess 6 H O2 Saturation 98 O2 % 6.0 ABG pCO2 54.7 H ABG pO2 102 H Kunal Test Positive O2 Delivery Device Cannula Vent Mode Not entered Radiography Diagnostic Testing: Radiology Impression Chest X-Ray 01/15/24 17:17 IMPRESSION: Slightly increasing size of left pleural effusion and mild left lower lobe consolidation Mild residual atelectasis in right lower lobe and small effusion with interval improvement since previous exam Electronically Signed: Delon Stratton MD at 18:15 EDT , Physical Exam Narrative GENERAL: cooperative HEENT: Atraumatic; normocephalic EYES; Anicteric, Normal Conjunctiva NECK; supple, normal thyroid, RESPIRATORY: Diminished to auscultation with bilateral rhonchi CARDIOVASCULAR: Irregularly irregular, systolic murmur GI: soft, normoactive bowel sounds, : No Renal angle tenderness; EXTREMITIES: edema, no clubbing, MUSCULOSKELETAL: no muscle wasting NEURO: Awake; no lateralizing signs. SKIN: No Rash PSYCH; Flat affect Assessment & Plan Assessment/Plan (1) Acute on chronic heart failure with preserved ejection fraction (HFpEF): (2) COPD exacerbation: (3) Pneumonia: PLAN: Plan Patient is an 84-year-old lady with underlying history of COPD who presented with progressive shortness of breath cough and sore throat. An assessment of acute on chronic hypoxic respiratory failure secondary to COPD exacerbation and left-sided pneumonia made placed on noninvasive ventilation BiPAP admitted to the intensive care unit for further management 1. Acute on chronic hypoxic and hypercapnic respiratory failure ? Secondary to combination of pneumonia and COPD exacerbation. Patient was placed on noninvasive isolation admitted to the intensive care unit with treatment of the underlying clinical issues 2. COPD with acute exacerbation ? Patient started on bronchodilator treatment, systemic steroid as well as antibiotic therapy. Patient placed on oxygen titrated to keep saturation greater than 90. 3. Pneumonia - Suspected to be secondary to with suspected multidrug-resistant organisms, Blood and sputum cultures sent. Patient placed on Rocephin and Zithromax and placed on oxygen titrated to keep Pulse Ox greater than 90 4. Paroxysmal A-fib with RVR ? Patient was started on Cardizem drip titrated to keep heart rate less than 100 patient is already on systemic anticoagulation with apixaban continued 5. Acute on chronic congestive heart failure served ejection fraction Echo obtained on 12/26/2023 demonstrated EF of 65% Mild global right ventricular systolic dysfunction.There is severe biatrial dilatation. Moderate mitral annular calcification. Aortic sclerosis, no stenosis.. Patient was started on Lasix, fluid restriction, daily weight and strict input and output. Response to therapy being monitored with above parameters 6. Valvular heart disease ? Patient was noted to have severe tricuspid valve insufficiency on the echo obtained on 01/05/2024 patient to follow-up with cardiology 7. Severe pulmonary hypertension ? Complicating care echo from 12/26/2023 demonstrated .Severe pulmonary hypertension. Pulmonary artery systolic pressure estimated at 60 mmHg. 8. Hypertension -blood pressure controlled, home medications continued with dose adjustment as needed 9. Hypothyroidism -patient is on levothyroxine home dose continued 10 . Diabetes mellitus type 2 with complications including diabetic nephropathy - Patient is on oral agent held on admission placed on scheduled insulin with Accu-Cheks before meals and at bedtime with sliding scale coverage 11. Morbid obesity -with BMI of 41.7 lifestyle modification including weight loss advised 12. History of right breast CA -status post mastectomy with subsequent neoadjuvant chemotherapy patient was managed on tamoxifen for 5 years 13. Chronic hypoxic respiratory failure ? Patient is on home oxygen 5 L baseline 14. DVT prophylaxis -patient is on Eliquis Time spent in the patient's overall evaluation,decision-making process, review of diagnostic data, adjustment of management, discussion with other providers, nursing nursing and ancillary staff involved in patient's care documentation, 52 Minutes Charges/Coding Visit Charges Inpatient E&M: 19378 Init Hosp L3
--- NOTE | 2024-01-16 08:40 | PCM.CONS.C ---
Assessment & Plan Assessment/Plan (1) Acute on chronic heart failure with preserved ejection fraction (HFpEF): PLAN: She does have heart failure with preserved low ventricular systolic function. Recommendation will be to continue diuretics intravenously. There is no reason to repeat the echocardiogram at this time. She will continue with her sacubitril and beta-triny. (2) Longstanding persistent atrial fibrillation: PLAN: She does have longstanding persistent atrial fibrillation. Her ventricular response rate is elevated at this time. My recommendation will be to continue the intravenous Cardizem during this acute phase of her illness and this can be weaned off back to oral beta-triny (3) Essential (primary) hypertension: PLAN: Her blood pressure appears to be under good control at this time I would not make any major changes. (4) HARDEN (dyspnea on exertion): PLAN: She does have pulmonary hypertension with moderate pulmonary hypertension. We will need to adjust her diuretics as appropriate. We may need to consider the addition of spironolactone. HPI Consult Data Date of Consult: 01/16/24 HPI Narrative HPI Narrative: Jayde Wheat is an 83-year-old female who presents to the emergency room with shortness of breath and noted to be in atrial fibrillation. Cardiology was called for evaluation and management. She has a history of hypertension, hyperlipidemia, paroxysmal atrial fibrillation status post DC cardioversion attempt in March 2019. She is also intolerant of amiodarone. Afib has been treated with rate control. Patient was hospitalized February 14, 2023 for worsening shortness of breath. She was noted to have a pleural effusion and underwent pleurodesis. She presents this time with atrial fibrillation with rapid ventricular response rate. It is not clear whether she has a pneumonia or not she was started on intravenous diltiazem which she has tolerated her heart rate is better. She had had an echocardiogram in December of this year demonstrating preserved low ventricular systolic function with estimated pulm artery systolic pressure of approximately 53 mmHg. [facility] Medical History CHF exacerbation Congestive heart failure (CHF) IDDM (insulin dependent diabetes mellitus) Diabetes Rheumatoid arthritis On home oxygen therapy Low iron Insulin dependent diabetes mellitus Wears glasses Wears dentures Cancer History of steroid therapy History of renal disease High cholesterol Restless legs Injury of back Back pain Dietary restriction Shortness of breath on exertion History of pain when walking History of edema History of echocardiogram History of stress test Cardiology follow-up encounter History of CHF (congestive heart failure) History of atrial fibrillation Hyperlipidemia Overactive bladder Hypothyroidism Diabetes mellitus Hypertension Chronic kidney disease, stage 3b Former smoker Atrial fibrillation Hypertension Chronic anticoagulation Skin cancer, basal cell Actinic keratosis Skin lesion Skin cancer Chronic diastolic (congestive) heart failure Longstanding persistent atrial fibrillation Diastolic dysfunction Secondary pulmonary arterial hypertension Non-rheumatic tricuspid valve insufficiency Stage 2 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 Right hip pain Disc degeneration, lumbar Fatigue UTI (urinary tract infection) Hypoxia Hypersomnia COPD (chronic obstructive pulmonary disease) Obesity Tobacco dependence in remission CKD (chronic kidney disease) stage 3, GFR 30-59 ml/min Breast cancer Essential (primary) hypertension BMI 39.0-39.9,adult Erosion of bladder suspension mesh SHAKIRA (stress urinary incontinence, female) Home Medications ?Medication ?Instructions ?Recorded ?Last Taken ?Type metoprolol tartrate 100 mg tablet 100 mg PO BID BP/heart rate #180 04/05/23 Unknown Rx tabs diltiazem HCl 240 mg 240 mg PO DAILY heart #90 caps 04/26/23 Unknown Rx capsule,extended release 24 hr levothyroxine 50 mcg tablet 50 mcg PO DAILY@0600 #0 tabs 08/02/23 Unknown Rx polysaccharide iron complex 150 mg 150 mg PO DAILY 30 days #30 caps 08/02/23 Unknown Rx iron capsule (Ferrex) potassium chloride 20 mEq 20 meq PO BIDCM 30 days #60 tabs 08/02/23 Unknown Rx tablet,extended release(part/cryst) apixaban 2.5 mg tablet (Eliquis) 2.5 mg PO DAILY blood thinner 08/20/23 Unknown History furosemide 40 mg tablet 40 mg PO BID 10/21/23 Unknown History sacubitril 49 mg-valsartan 51 mg 1 tab PO BID 10/21/23 Unknown History tablet (Entresto) levothyroxine 200 mcg tablet 200 mcg PO DAILY 12/02/23 Unknown History rosuvastatin 40 mg tablet 40 mg PO QHS 12/02/23 Unknown History cholecalciferol (vitamin D3) 25 25 mcg PO QDAY 12/20/23 Unknown History mcg (1,000 unit) capsule (Vitamin D3) glimepiride 1 mg tablet 1 mg PO QDAY 12/20/23 Unknown History insulin degludec 100 unit/mL (3 30 unit subcut DAILY 12/26/23 Unknown History mL) subcutaneous pen (Tresiba FlexTouch U-100 insulin) cefdinir 300 mg capsule 300 mg PO BID #6 caps 12/29/23 Unknown Rx Allergy/AdvReac Type Severity Reaction Status Date / Time Sulfa (Sulfonamide Allergy PEELING Verified 01/15/24 16:46 Antibiotics) RASH Family History Mother Colon cancer Cancer skin, bladder Daughter Cancer Thyroid Sister CAD (coronary artery disease) Surgical History Hx of colonoscopy Hx of right cataract extraction Hx of left cataract extraction History of excision of lesion Hx of local excision of skin lesion History of cardioversion (03/20/19) History of hysterectomy History of partial mastectomy History of left heart catheterization (05/31/14) Social History household members: none housing: house current occupational status: retired Smoking Status: Former smoker how long ago did patient quit smokin, 2p/day second hand exposure: Yes alcohol intake: current alcohol intake frequency: holidays/special occasions only substance use type: does not use ROS Constitutional Constitutional: Denies fever(s) or weight loss Eyes Eyes: Reports systems reviewed and no addt'l complaints, except as documented ENT HEENT: Reports systems reviewed and no addt'l complaints, except as documented Cardiovascular Cardiovascular: Denies chest pain at rest, chest pain with activity, dyspnea at rest, dyspnea on exertion, edema, palpitations or paroxysmal nocturnal dyspnea Respiratory/Chest Respiratory/Chest: Denies dyspnea on exertion, productive cough, shortness of breath at rest or shortness of breath with exertion Gastrointestinal Gastrointestinal: Denies change in bowel habits, nausea, vomiting or weight changes Genitourinary Genitourinary: Denies difficulty urinating Musculoskeletal Musculoskeletal: Denies joint stiffness or muscle weakness Integumentary Integumentary: Denies lesions Neurologic Neurologic: Denies dizziness or syncope Psychiatric Psychiatric: Denies anxiety Endocrine Endocrinology: Denies excessive sweating or fatigue Hematologic/Lymphatic Hematologic/Lymphatic: Denies anemia Allergic/Immunologic Allergic/Immunologic: Denies seasonal rhinorrhea Physical Exam Const alert, oriented x3 and no apparent distress General Appearance: cooperative HEENT hearing grossly normal bilaterally Head and Scalp: atraumatic Eyes EOMs intact bilaterally Neck General: normal visual inspection Chest inspection of chest normal and palpation of chest normal Resp normal respiratory effort Auscultation: clear to auscultation bilaterally Cardio S1 normal heart sound and S2 normal heart sound Jugular Venous Distention: JVD Rhythm: abnormal rhythm irregularly irregular GI normal to inspection, nondistended, normoactive bowel sounds Extremity normal capillary refill and no pedal edema Peripheral Pulses: Yes pulses 2+ throughout and femoral pulses present Skin no rashes or lesions noted Neuro oriented x3 and CN's II-XII intact bilaterally Psych Appearance: grossly normal and appropriate Risk Stratification Risk Stratification Applicable: No Objective Data Vital Signs: Vital Signs Temp Pulse Resp BP Pulse Ox O2 Del Method O2 Flow Rate 97.8 F 95 21 H 134/82 H 92 Nasal Cannula 5 01/16/24 01:00 01/16/24 07:00 01/16/24 07:00 01/16/24 07:00 01/16/24 07:00 01/16/24 07:00 01/16/24 07:00 FiO2 35 01/16/24 05:00 Oxygen Flow Rate (L/min) 5 Oxygen Delivery Method Nasal Cannula Weight: 266 lb 1.567 oz Body Mass Index (BMI) 41.8 Intake & Output: Intake and Output for Last 24 Hours 01/14/24 01/15/24 01/16/24 23:59 23:59 23:59 Intake Total 316.00 / 323.50 142.5 / 142.5 Output Total 400 / 400 Balance 316.00 / 323.50 -257.5 / -257.5 Lab / Micro Data 01/15/24 18:00 01/16/24 04:30 Labs: Laboratory Results - last 24 hr 01/15/24 18:00: WBC 11.9 H, RBC 3.70 L, Hgb 10.0 L, Hct 33.7 L, MCV 91.1, MCH 27.0, MCHC 29.7 L, RDW Std Deviation 55.8 H, RDW Coeff of Sudha 16.7 H, Plt Count 259, MPV 10.5, Immature Gran % (Auto) 0.600, Neut % (Auto) 87.6 H, Lymph % (Auto) 7.2 L, Rapides % (Auto) 3.6, Eos % (Auto) 0.8, Baso % (Auto) 0.2, Absolute Neuts (auto) 10.5 H, Absolute Lymphs (auto) 0.86, Nucleated RBC % 0, PT 15.3 H, INR 1.2, APTT 25.1, Sodium 143, Potassium 3.9, Chloride 107, Carbon Dioxide 34.0 H, Anion Gap 2 L, BUN 21 H, Creatinine 1.23 H, Estim Creat Clear Calc 45.62, Est GFR (MDRD) Af Amer 53 L, Est GFR (MDRD) Non-Af 44 L, BUN/Creatinine Ratio 17.1, Glucose 124 H, Lactic Acid 1.0, Calcium 8.9, Troponin I High Sens 26 01/15/24 18:15: Procalcitonin 0.13 H 01/15/24 19:45: B-Natriuretic Peptide 577.2 H, Urine Color Yellow, Urine Clarity Sl. Cloudy, Urine pH 5.0, Ur Specific Bohannon 1.025, Urine Protein 500 H, Urine Glucose (UA) Normal, Urine Ketones Negative, Urine Occult Blood 25 H, Urine Nitrite Negative, Urine Bilirubin Negative, Urine Urobilinogen Normal, Ur Leukocyte Esterase Negative, Urine RBC 0-5 SEEN, Urine WBC 0-5 SEEN, Ur Squamous Epith Cells 0 SEEN, Amorphous Sediment 2+, Urine Bacteria 2+, Fine Granular Casts 0-5 SEEN, Urine Mucus 0 SEEN 01/16/24 02:36: Troponin I High Sens 21 01/16/24 04:30: Sodium 139, Potassium 3.7, Chloride 104, Carbon Dioxide 32.0, Anion Gap 4 L, BUN 22 H, Creatinine 1.33 H, Estim Creat Clear Calc 41.61, Est GFR (MDRD) Af Amer 49 L, Est GFR (MDRD) Non-Af 40 L, BUN/Creatinine Ratio 16.5, Glucose 135 H, Calcium 8.8, Troponin I High Sens 20, Triglycerides 72, Cholesterol 114, LDL Cholesterol 40, VLDL Cholesterol 14, HDL Cholesterol 60, TSH 1.420, Free T4 1.22 Micro: Microbiology 01/16/24 19:45 Urine Catheter - Sidhu Legionella Antigen - Final 01/16/24 19:45 Urine Catheter - Sidhu Streptococcus pneumoniae Antigen (M - Final 01/15/24 18:15 Mucosa - Nose SARS-CoV-2, Influenza & RSV (PCR) - Final ABG Data ABG results: ABG 01/16/24 00:26 Specimen Type ART Sample Site L Radial pH 7.37 Bicarbonate Actual 31.4 H Total CO2 33 Base Excess 6 H O2 Saturation 98 O2 % 6.0 ABG pCO2 54.7 H ABG pO2 102 H Kunal Test Positive O2 Delivery Device Cannula Vent Mode Not entered Cardiology Labs/Tests 01/15/24 18:00: WBC 11.9 H, RBC 3.70 L, Hgb 10.0 L, Hct 33.7 L, MCV 91.1, MCH 27.0, MCHC 29.7 L, Plt Count 259, MPV 10.5, Immature Gran % (Auto) 0.600, Neut % (Auto) 87.6 H, Lymph % (Auto) 7.2 L, Rapides % (Auto) 3.6, Eos % (Auto) 0.8, Baso % (Auto) 0.2, Absolute Neuts (auto) 10.5 H, Nucleated RBC % 0, PT 15.3 H, INR 1.2, APTT 25.1, Sodium 143, Potassium 3.9, Chloride 107, Carbon Dioxide 34.0 H, Anion Gap 2 L, BUN 21 H, Creatinine 1.23 H, Est GFR (MDRD) Af Amer 53 L, Est GFR (MDRD) Non-Af 44 L, BUN/Creatinine Ratio 17.1, Glucose 124 H, Lactic Acid 1.0, Calcium 8.9 01/15/24 19:45: B-Natriuretic Peptide 577.2 H, Urine Color Yellow, Urine Clarity Sl. Cloudy, Urine pH 5.0, Ur Specific Bohannon 1.025, Urine Protein 500 H, Urine Glucose (UA) Normal, Urine Ketones Negative, Urine Occult Blood 25 H, Urine Nitrite Negative, Urine Bilirubin Negative, Urine Urobilinogen Normal, Ur Leukocyte Esterase Negative, Urine RBC 0-5 SEEN, Urine WBC 0-5 SEEN 01/16/24 00:26: pH 7.37, Bicarbonate Actual 31.4 H, Base Excess 6 H, O2 Saturation 98, ABG pCO2 54.7 H, ABG pO2 102 H, Kunal Test Positive 01/16/24 04:30: Sodium 139, Potassium 3.7, Chloride 104, Carbon Dioxide 32.0, Anion Gap 4 L, BUN 22 H, Creatinine 1.33 H, Est GFR (MDRD) Af Amer 49 L, Est GFR (MDRD) Non-Af 40 L, BUN/Creatinine Ratio 16.5, Glucose 135 H, Calcium 8.8, Triglycerides 72, Cholesterol 114, LDL Cholesterol 40, VLDL Cholesterol 14, HDL Cholesterol 60 Rhythm: EKG: ECHO: Stress Test: Cardiac Cath: PCI: CT Surgery: Holter monitor: EPS: PPM: CXR: Chest CT Scan: Radiography Diagnostic Testing: Radiology Impression Chest X-Ray 01/15/24 17:17 IMPRESSION: Slightly increasing size of left pleural effusion and mild left lower lobe consolidation Mild residual atelectasis in right lower lobe and small effusion with interval improvement since previous exam Electronically Signed: Delon Stratton MD at 18:15 EDT ,
[2024-01-16] MEDS: Diltiazem 125 MG in Dextrose 5%-Water (100mL Bag) 100 ML 10 MG IV ×2 (09:25→21:13)
[2024-01-16] MEDS: Metoprolol Tartrate 100 MG Tablet PO ×2 (09:25→21:11)
[2024-01-16] MEDS: Potassium Chloride Oral Tablet 20 MEQ PO ×2 (09:26→18:05)
[2024-01-16] MEDS: Glimepiride 1 MG Tablet PO (09:26)
[2024-01-16] MEDS: Insulin Glargine-YFGN 100 UNIT/ML Pen 20 UNIT SC (09:26)
[2024-01-16] MEDS: SACUBITRIL/VALSARTAN 49-51 MG TABLET 1 EACH PO ×2 (09:27→21:12)
[2024-01-16] MEDS: APIXABAN 2.5 MG TABLET (WCH) PO (09:27)
[2024-01-16] MEDS: Cholecalciferol (VIT D3) 25 MCG TABLET (1,000 UNITS) PO (09:28)
[2024-01-16] MEDS: Furosemide 40 MG/4 ML Vial IV ×2 (09:28→18:06)
[2024-01-16] MEDS: Iron Polysaccharide Complex 150 MG CAPSULE PO (09:28)
[2024-01-16] MEDS: Azithromycin 250 MG Tablet 500 MG PO (09:29)
--- NOTE | 2024-01-16 10:05 | CASEMGMT ---
Readmission Note: Index: 12/26/23-12/29/23. Dx: Hypoxia Readmission: 01/15/24. Dx: AFIB RVR, PNA, Chronic RF From index admission, the pt was discharged home alone with [facility] ([facility], PT, OT, SW) and a list of private duty aides. The pt also wears oxygen through [facility]. This RN CM called the pt on 12/29 for a DC f/u phone call. See note. At that time, it appeared that the pt was engaging in all of the correct interventions needed. Pt was able to get her ATB Rx and take all of her medications as ordered. The pt was aware of the diet recommendations given in the DC instructions. Pt readmits to [facility] with SOB. This RN CM to the pt room at this time. Pt states that she was able to wear her oxygen accordingly. Pt states that she wears 5L continuously at home. TC to [facility] to verify current oxygen Rx. [facility] states that they are busy at this time and will call this RN CM back with the information. Pt also reports that she was receiving help from the C company and would like to continue this. Pt states that she hired a lens cleaner to come to the home every Saturday to help. Pt also reports that she was checking her blood sugar daily and still has sufficient supplies. Also, the pt states that she was able to f/u with her PCP between admissions. Moving forward, the pt plans to return home once she is medically ready and wishes to continue the HHC through [facility] and denies wanting to review a list of other options. TC to [facility] and Michelle states that the pt is only active with SN as the pt declined PT, OT, and SW. Will follow in case these disciplines need to be readded. Will follow for increased oxygen needs. Pt states that she does have portability in the room currently. Pt denies further questions or concerns at this time. Tentative plan: Home with the continuation of [facility] and follow for increased oxygen needs.
[2024-01-16] MEDS: Spironolactone 25 MG Tablet PO (11:09)
[2024-01-16 11:40] LABS: Troponin-I HS 16 pg/mL (3.0-54.0)
--- NOTE | 2024-01-16 14:05 | PCMCONS.TICU ---
HPI Consult Data Date of Consult: 01/16/24 HPI Narrative HPI Narrative: TONJA SÁNCHEZ, is a 84 F who presents [facility] Medical History CHF exacerbation Congestive heart failure (CHF) IDDM (insulin dependent diabetes mellitus) Diabetes Rheumatoid arthritis On home oxygen therapy Low iron Insulin dependent diabetes mellitus Wears glasses Wears dentures Cancer History of steroid therapy History of renal disease High cholesterol Restless legs Injury of back Back pain Dietary restriction Shortness of breath on exertion History of pain when walking History of edema History of echocardiogram History of stress test Cardiology follow-up encounter History of CHF (congestive heart failure) History of atrial fibrillation Hyperlipidemia Overactive bladder Hypothyroidism Diabetes mellitus Hypertension Chronic kidney disease, stage 3b Former smoker Atrial fibrillation Hypertension Chronic anticoagulation Skin cancer, basal cell Actinic keratosis Skin lesion Skin cancer Chronic diastolic (congestive) heart failure Longstanding persistent atrial fibrillation Diastolic dysfunction Secondary pulmonary arterial hypertension Non-rheumatic tricuspid valve insufficiency Stage 2 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 Right hip pain Disc degeneration, lumbar Fatigue UTI (urinary tract infection) Hypoxia Hypersomnia COPD (chronic obstructive pulmonary disease) Obesity Tobacco dependence in remission CKD (chronic kidney disease) stage 3, GFR 30-59 ml/min Breast cancer Essential (primary) hypertension BMI 39.0-39.9,adult Erosion of bladder suspension mesh SHAKIRA (stress urinary incontinence, female) Home Medications ?Medication ?Instructions ?Recorded ?Last Taken ?Type metoprolol tartrate 100 mg tablet 100 mg PO BID BP/heart rate #180 04/05/23 Unknown Rx tabs diltiazem HCl 240 mg 240 mg PO DAILY heart #90 caps 04/26/23 Unknown Rx capsule,extended release 24 hr levothyroxine 50 mcg tablet 50 mcg PO DAILY@0600 #0 tabs 08/02/23 Unknown Rx polysaccharide iron complex 150 mg 150 mg PO DAILY 30 days #30 caps 08/02/23 Unknown Rx iron capsule (Ferrex) potassium chloride 20 mEq 20 meq PO BIDCM 30 days #60 tabs 08/02/23 Unknown Rx tablet,extended release(part/cryst) apixaban 2.5 mg tablet (Eliquis) 2.5 mg PO DAILY blood thinner 08/20/23 Unknown History furosemide 40 mg tablet 40 mg PO BID 10/21/23 Unknown History sacubitril 49 mg-valsartan 51 mg 1 tab PO BID 10/21/23 Unknown History tablet (Entresto) levothyroxine 200 mcg tablet 200 mcg PO DAILY 12/02/23 Unknown History rosuvastatin 40 mg tablet 40 mg PO QHS 12/02/23 Unknown History cholecalciferol (vitamin D3) 25 25 mcg PO QDAY 12/20/23 Unknown History mcg (1,000 unit) capsule (Vitamin D3) glimepiride 1 mg tablet 1 mg PO QDAY 12/20/23 Unknown History insulin degludec 100 unit/mL (3 30 unit subcut DAILY 12/26/23 Unknown History mL) subcutaneous pen (Tresiba FlexTouch U-100 insulin) cefdinir 300 mg capsule 300 mg PO BID #6 caps 12/29/23 Unknown Rx Allergy/AdvReac Type Severity Reaction Status Date / Time Sulfa (Sulfonamide Allergy PEELING Verified 01/15/24 16:46 Antibiotics) RASH Family History Mother Colon cancer Cancer skin, bladder Daughter Cancer Thyroid Sister CAD (coronary artery disease) Surgical History Hx of colonoscopy Hx of right cataract extraction Hx of left cataract extraction History of excision of lesion Hx of local excision of skin lesion History of cardioversion (03/20/19) History of hysterectomy History of partial mastectomy History of left heart catheterization (05/31/14) Social History household members: none housing: house current occupational status: retired Smoking Status: Former smoker how long ago did patient quit smokin, 2p/day second hand exposure: Yes alcohol intake: current alcohol intake frequency: holidays/special occasions only substance use type: does not use Objective Data Objective Data Vital Signs: Vital Signs Last response Temperature 36.6 C 01/16/24 12:00 Temperature Source Temporal 01/16/24 12:00 Pulse Rate 85 01/16/24 12:00 Respiratory Rate 18 01/16/24 12:00 Respiratory Effort Short of Breath 01/16/24 12:00 Respiratory Depth Normal 01/16/24 12:00 Respiratory Pattern Tachypnea 01/16/24 12:00 Blood Pressure 132/82 H 01/16/24 12:00 Blood Pressure Mean 98 01/16/24 12:00 Blood Pressure Source Monitor 01/16/24 12:00 Blood Pressure Position Semi-Fowlers 01/16/24 12:00 Blood Pressure Location Right Arm 01/16/24 12:00 Pulse Ox 98 01/16/24 12:00 Oxygen Delivery Method Bi-pap 01/16/24 12:00 Oxygen Flow Rate (L/min) 5 01/16/24 12:00 Fraction of Inspired Oxygen (FIO2) 35 01/16/24 12:00 I&O: I&O Last 24 Hours 01/15/24 01/16/24 01/16/24 23:59 11:59 23:59 Intake Total 316.00 / 323.50 229.83 / 239.83 239.83 Output Total 400 / 400 Balance 316.00 / 323.50 -170.17 / -160.17 10 / -160.17 I&O: Total Stay 01/15/24 16:44 thru 01/16/24 12:00 Intake Total 555.83 Output Total 400 Balance 155.83 Current Meds Ordered / Administered: Current meds ordered / Administered Generic Name Dose Route Start Last Admin Trade Name Freq PRN Reason Stop Dose Admin Apixaban 2.5 mg 01/16/24 10:00 01/16/24 09:27 Apixaban 2.5 Mg Tablet ([facility]) PO 2.5 mg DAILY DAVID Administration Atorvastatin Calcium 80 mg 01/16/24 22:00 Atorvastatin Calcium 80 Mg Tablet PO QHS DAVID Azithromycin 500 mg 01/16/24 10:00 01/16/24 09:29 Azithromycin 250 Mg Tablet PO 500 mg Q24 DAVID Administration Cholecalciferol 25 mcg 01/16/24 10:00 01/16/24 09:28 Cholecalciferol (Vit D3) 25 Mcg Tablet (1,000 Units) PO 25 mcg DAILY DAVID Administration Furosemide 40 mg 01/16/24 10:00 01/16/24 09:28 Furosemide 40 Mg/4 Ml Vial IV 40 mg BID@1000,1800 DAVID Administration Glimepiride 1 mg 01/16/24 08:00 01/16/24 09:26 Glimepiride 1 Mg Tablet PO 1 mg DAILYCM DAVID Administration Guaifenesin 1,200 mg 01/16/24 02:15 01/16/24 09:27 Guaifenesin 1,200 Mg Tablet PO 1,200 mg BID DAVID Administration Diltiazem HCl 125 mg/ Dextrose 125 mls @ 5 mls/hr 01/15/24 21:35 01/16/24 12:00 IV 10 mg/hr .Q25H DAVID 10 mls/hr Titration Protocol 5 MG/HR Piperacillin Sod/Tazobactam 50 mls @ 12.5 mls/hr 01/16/24 00:29 01/16/24 12:25 Sod 3.375 gm/ Sodium Chloride IV 12.5 mls/hr Q8 DAVID Administration Sodium Chloride 500 mls @ 15 mls/hr 01/16/24 00:50 IV .[id number] PRN Saline Flush Sodium Chloride 500 mls @ 15 mls/hr 01/16/24 00:50 IV .[id number] PRN Additional IVPB Infusion Insulin Glargine 20 unit 01/16/24 10:00 01/16/24 09:26 Insulin Glargine-Yfgn 100 Unit/Ml Pen SC 20 unit DAILY DAVID Administration Labetalol HCl 20 mg 01/16/24 02:31 Labetalol (Prefilled) 20 Mg/4 Ml Vial IV Q4H PRN PRN SBP>180 Levothyroxine Sodium 200 mcg 01/16/24 06:00 01/16/24 05:10 Levothyroxine 100 Mcg Tablet PO 200 mcg DAILY@0600 DAVID Administration Levothyroxine Sodium 50 mcg 01/16/24 06:00 01/16/24 05:10 Levothyroxine 50 Mcg Tablet PO 50 mcg DAILY@0600 DAVID Administration Methylprednisolone 40 mg 01/16/24 02:15 01/16/24 12:25 Methylprednisolone 40 Mg/Ml Vial IV 40 mg Q8 DAVID Administration Metoprolol Tartrate 100 mg 01/16/24 10:00 01/16/24 09:25 Metoprolol Tartrate 100 Mg Tablet PO 100 mg BID DAVID Administration Protocol Polysaccharide Iron Complex 150 mg 01/16/24 10:00 01/16/24 09:28 Iron Polysaccharide Complex 150 Mg Capsule PO 150 mg DAILY DAVID Administration Potassium Chloride 20 meq 01/16/24 08:00 01/16/24 09:26 Potassium Chloride Oral Tablet 20 Meq PO 20 meq BIDCM DAVID Administration Sacubitril/Valsartan 1 each 01/16/24 10:00 01/16/24 09:27 Sacubitril/Valsartan 49-51 Mg Tablet PO 1 each BID DAVID Administration Sodium Chloride 10 - 40 ml 01/16/24 00:50 01/16/24 02:43 0.9% Saline Lock 10 Ml Syringe IV 20 ml UD PRN Administration SALINE FLUSH Spironolactone 25 mg 01/16/24 10:00 01/16/24 11:09 Spironolactone 25 Mg Tablet PO 25 mg DAILY DAVID Administration Protocol Lab / Micro Data 01/15/24 18:00 01/16/24 04:30 Labs: Laboratory Results - last 24 hr 01/15/24 18:00: WBC 11.9 H, RBC 3.70 L, Hgb 10.0 L, Hct 33.7 L, MCV 91.1, MCH 27.0, MCHC 29.7 L, RDW Std Deviation 55.8 H, RDW Coeff of Sudha 16.7 H, Plt Count 259, MPV 10.5, Immature Gran % (Auto) 0.600, Neut % (Auto) 87.6 H, Lymph % (Auto) 7.2 L, [place] % (Auto) 3.6, Eos % (Auto) 0.8, Baso % (Auto) 0.2, Absolute Neuts (auto) 10.5 H, Absolute Lymphs (auto) 0.86, Nucleated RBC % 0, PT 15.3 H, INR 1.2, APTT 25.1, Sodium 143, Potassium 3.9, Chloride 107, Carbon Dioxide 34.0 H, Anion Gap 2 L, BUN 21 H, Creatinine 1.23 H, Estim Creat Clear Calc 45.62, Est GFR (MDRD) Af Amer 53 L, Est GFR (MDRD) Non-Af 44 L, BUN/Creatinine Ratio 17.1, Glucose 124 H, Lactic Acid 1.0, Calcium 8.9, Troponin I High Sens 26 01/15/24 18:15: Procalcitonin 0.13 H 01/15/24 19:45: B-Natriuretic Peptide 577.2 H, Urine Color Yellow, Urine Clarity Sl. Cloudy, Urine pH 5.0, Ur Specific [place] 1.025, Urine Protein 500 H, Urine Glucose (UA) Normal, Urine Ketones Negative, Urine Occult Blood 25 H, Urine Nitrite Negative, Urine Bilirubin Negative, Urine Urobilinogen Normal, Ur Leukocyte Esterase Negative, Urine RBC 0-5 SEEN, Urine WBC 0-5 SEEN, Ur Squamous Epith Cells 0 SEEN, Amorphous Sediment 2+, Urine Bacteria 2+, Fine Granular Casts 0-5 SEEN, Urine Mucus 0 SEEN 01/16/24 02:36: Troponin I High Sens 21 01/16/24 04:30: Sodium 139, Potassium 3.7, Chloride 104, Carbon Dioxide 32.0, Anion Gap 4 L, BUN 22 H, Creatinine 1.33 H, Estim Creat Clear Calc 41.61, Est GFR (MDRD) Af Amer 49 L, Est GFR (MDRD) Non-Af 40 L, BUN/Creatinine Ratio 16.5, Glucose 135 H, Calcium 8.8, Troponin I High Sens 20, Triglycerides 72, Cholesterol 114, LDL Cholesterol 40, VLDL Cholesterol 14, HDL Cholesterol 60, TSH 1.420, Free T4 1.22 01/16/24 11:15: Troponin I High Sens 16 Micro: Microbiology 01/15/24 19:45 Urine, Catheterized Urine Culture - Preliminary Culture exhibits no growth. 01/16/24 19:45 Urine Catheter - Sidhu Legionella Antigen - Final 01/16/24 19:45 Urine Catheter - Sidhu Streptococcus pneumoniae Antigen (M - Final 01/15/24 18:15 Mucosa - Nose SARS-CoV-2, Influenza & RSV (PCR) - Final ABG Data ABG results: ABG 01/16/24 00:26 Specimen Type ART Sample Site L Radial pH 7.37 Bicarbonate Actual 31.4 H Total CO2 33 Base Excess 6 H O2 Saturation 98 O2 % 6.0 ABG pCO2 54.7 H ABG pO2 102 H Kunal Test Positive O2 Delivery Device Cannula Vent Mode Not entered Imaging Radiology Impression Chest X-Ray 01/15/24 17:17 IMPRESSION: Slightly increasing size of left pleural effusion and mild left lower lobe consolidation Mild residual atelectasis in right lower lobe and small effusion with interval improvement since previous exam Electronically Signed: Delon Stratton MD at 18:15 EDT , Assessment and Plan . Assessment and plan: HPI 84 yo chronically ill and debilitated woman admitted 01/15/24 w/ dyspnea. She is morbidly obese, a former smoker, chronic hypoxemia, chronic CHF and chronic AF. She has a chronic left pleural effusion - apparently noted to be transudative in the past. Noted atrial fibrillation w/ tachycardia on presentation. pCXR reveals L>R effusions w/ bibasilar opacities. ABG reveals compensated chronic hypercapnia. BNP around 600. Viral panel (-) Prior TTE reveals bi-atrial dilation, e/o significant PAH, modestly decreased RVSF. She is currently breathing 5 LPM O2 at rest. HR 80s, irreg - cardizem infusing. PHYSICAL EXAM GEN NAD VS as above HEENT o/p clear; O2 via N/C NECK obese COR irreg CHEST decreased ABD soft EXT minimal edema SKIN w/d BELEN NF ASSESSMENT 1. Acute and chronic respiratory failure w/ hypoxemia and hypercapnia 2. Chronic L>R pleural effusions 3. Chronic CHF 4. Chronic atrial fibrillation 5. Morbid obesity 6. Former tobacco use 7. Likely JASVIR TREATMENT PLAN -supplemental O2 -she would likely benefit from nocturnal PPV support indefinitely -HR control -continue NOAC -would try to keep I/O (-) -inhaled atrovent -short course ABX and steroids reasonable -60 min CCT -the entirety of this encounter performed using telemedicine
[2024-01-16] MEDS: Atorvastatin Calcium 80 MG Tablet PO (21:12)
[2024-01-17] VITALS (24 sets, daily range): BP systolic 103–152; BP diastolic 59–95; PULSE 86–133; RESP 18–24; TEMP 36.4–36.7; O2SAT 91–98; BMI 41.6
[2024-01-17] MEDS: Levothyroxine 100 MCG Tablet 200 MCG PO (05:25)
[2024-01-17] MEDS: Levothyroxine 50 MCG Tablet PO (05:26)
[2024-01-17] MEDS: Piperacil/Tazobactam 3.375 GM in 0.9% Normal Saline (50mL MB+) 50 ML IV ×3 (05:26→22:07)
[2024-01-17 05:44] LABS: Absolute Lymphocyte Count 0.36 X10^3/uL (0.83-4.51); Absolute Neutrophil Count 7.9 X10^3/uL (2.0-7.7); Basophil# 0.01 X10^3/uL; Basophil% 0.1 % (0-1); Hematocrit 32.7 % (37-47); Hemoglobin 9.6 g/dL (12.0-15.0); Lymphocyte # 0.36 X10^3/ul (0.83-4.51); Lymphocyte % 4.2 % (19-41); Mean Corp Hgb Conc 29.4 g/dL (32-36); Mean Corpuscular Hgb 26.8 pg (27.0-32.0); Mean Corpuscular Volume 91.3 fL (81-99); Mean Platelet Vol. 10.5 fl (6.2-12.0); Monocyte# 0.23 X10^3/uL; Monocyte% 2.7 % (0-10); NRBC Flagged by Analyzer 0 % (0-5); Neutrophil # 7.88 X10^3/uL (2.7-7.7); Neutrophil % 92.5 % (47-70); POSITIVE DIFFERENTIAL YES; Platelet Count 252 K/mm3 (150-450); RBC Distribution Width CV 16.4 % (11.6-14.6); RBC Distribution Width SD 54.7 fl (35.1-43.9); Red Blood Count 3.58 M/mm3 (4.2-5.4); White Blood Count 8.5 K/mm3 (4.4-11.0)
[2024-01-17 05:57] LABS: Anion Gap 5 (5-15); BUN 36 mg/dL (7-18); BUN/Creat Ratio 22.1 RATIO (10-20); Calcium,Total 8.8 mg/dL (8.5-10.1); Chloride 103 mmol/L (98-107); Creatinine, Serum 1.63 mg/dL (0.55-1.02); EST Glomerular Filtration Rate 32 mL/min (>60); Est Glom Filt Rate - Afr Amer 39 mL/min (>60); Estimated Creatinine Clearance 33.94 ml/min; Glucose 236 mg/dL (74-106); Magnesium 2.3 mg/dL (1.6-2.6); Potassium 3.9 mmol/L (3.5-5.1); Sodium Level 140 mmol/L (136-145)
[2024-01-17] MEDS: Ipratropium 0.5 MG/2.5 ML SOLUTION INHALATION ×3 (06:33→19:23)
[2024-01-17 06:42] LABS: Phosphorus 4.3 mg/dL (2.5-4.9)
--- NOTE | 2024-01-17 07:08 | PCM.PN.HOSP ---
Reason for Visit Reason for Visit: Diagnoses Essential (primary) hypertension (01/15/24) Longstanding persistent atrial fibrillation (01/15/24) Acute on chronic diastolic (congestive) heart failure (01/15/24) Pneumonia, unspecified organism (01/15/24) Chronic obstructive pulmonary disease with (acute) exacerbation (01/15/24) Other forms of dyspnea (01/15/24) Subjective Subjective Patient seen still remains on Cardizem drip. Plan is to wean off of the drip and start patient on p.o. Cardizem. Objective Data Objective Data Vital Signs: Vital Signs Temp Pulse Resp BP Pulse Ox O2 Del Method O2 Flow Rate 97.5 F L 91 20 H 131/83 H 94 Nasal Cannula 6 01/17/24 02:00 01/17/24 06:34 01/17/24 06:34 01/17/24 06:00 01/17/24 06:34 01/17/24 06:34 01/17/24 06:34 FiO2 35 01/17/24 06:00 Oxygen Flow Rate (L/min) 6 Oxygen Delivery Method Nasal Cannula Weight: 120.6 kg Body Mass Index (BMI) 41.6 Intake & Output: Intake and Output for Last 24 Hours 01/15/24 01/16/24 01/17/24 23:59 23:59 23:59 Intake Total 316.00 / 323.50 999.83 / 1009.83 120 / 120 Output Total 1900 / 2050 250 / 250 Balance 316.00 / 323.50 -900.17 / -1040.17 -130 / -130 Lab / Micro Data 01/17/24 05:35 01/17/24 05:35 Labs: Laboratory Results - last 24 hr 01/16/24 11:15: Troponin I High Sens 16 01/17/24 05:35: WBC 8.5, RBC 3.58 L, Hgb 9.6 L, Hct 32.7 L, MCV 91.3, MCH 26.8 L, MCHC 29.4 L, RDW Std Deviation 54.7 H, RDW Coeff of Sudha 16.4 H, Plt Count 252, MPV 10.5, Immature Gran % (Auto) 0.500, Neut % (Auto) 92.5 H, Lymph % (Auto) 4.2 L, [place] % (Auto) 2.7, Eos % (Auto) 0.0, Baso % (Auto) 0.1, Absolute Neuts (auto) 7.9 H, Absolute Lymphs (auto) 0.36 L, Nucleated RBC % 0, Sodium 140, Potassium 3.9, Chloride 103, Carbon Dioxide 32.0, Anion Gap 5, BUN 36 H, Creatinine 1.63 H, Estim Creat Clear Calc 33.94, Est GFR (MDRD) Af Amer 39 L, Est GFR (MDRD) Non-Af 32 L, BUN/Creatinine Ratio 22.1 H, Glucose 236 H, Calcium 8.8, Phosphorus 4.3, Magnesium 2.3 Micro: Microbiology 01/15/24 19:45 Urine, Catheterized Urine Culture - Preliminary Culture exhibits no growth. 01/16/24 19:45 Urine Catheter - Sidhu Legionella Antigen - Final 01/16/24 19:45 Urine Catheter - Sidhu Streptococcus pneumoniae Antigen (M - Final 01/15/24 18:15 Mucosa - Nose SARS-CoV-2, Influenza & RSV (PCR) - Final Physical Exam Narrative GENERAL: cooperative HEENT: Atraumatic; normocephalic EYES; Anicteric, Normal Conjunctiva NECK; supple, normal thyroid, RESPIRATORY: Diminished to auscultation with bilateral rhonchi CARDIOVASCULAR: Irregularly irregular, systolic murmur GI: soft, normoactive bowel sounds, : No Renal angle tenderness; EXTREMITIES: edema, no clubbing, MUSCULOSKELETAL: no muscle wasting NEURO: Awake; no lateralizing signs. SKIN: No Rash PSYCH; Flat affect Assessment & Plan Assessment/Plan (1) Acute on chronic heart failure with preserved ejection fraction (HFpEF): (2) COPD exacerbation: (3) Pneumonia: PLAN: Plan Patient is an 84-year-old lady with underlying history of COPD who presented with progressive shortness of breath cough and sore throat. An assessment of acute on chronic hypoxic respiratory failure secondary to COPD exacerbation and left-sided pneumonia made placed on noninvasive ventilation BiPAP admitted to the intensive care unit for further management 1. Acute on chronic hypoxic and hypercapnic respiratory failure ? Secondary to combination of pneumonia and COPD exacerbation. Patient was placed on noninvasive isolation admitted to the intensive care unit with treatment of the underlying clinical issues ? 01/17/2024; patient has been weaned off BiPAP currently on nasal cannula 2. COPD with acute exacerbation ? Patient started on bronchodilator treatment, systemic steroid as well as antibiotic therapy. Patient placed on oxygen titrated to keep saturation greater than 90. 3. Pneumonia - Suspected to be secondary to with suspected multidrug-resistant organisms, Blood and sputum cultures sent. Patient placed on Rocephin and Zithromax and placed on oxygen titrated to keep Pulse Ox greater than 90 4. Paroxysmal A-fib with RVR ? Patient was started on Cardizem drip titrated to keep heart rate less than 100 patient is already on systemic anticoagulation with apixaban continued ? 01/17/2024; plan is for patient to be weaned off Cardizem 5. Acute on chronic congestive heart failure served ejection fraction Echo obtained on 12/26/2023 demonstrated EF of 65% Mild global right ventricular systolic dysfunction.There is severe biatrial dilatation. Moderate mitral annular calcification. Aortic sclerosis, no stenosis.. Patient was started on Lasix, fluid restriction, daily weight and strict input and output. Response to therapy being monitored with above parameters ? 01/17/2024 patient is in a negative fluid balance of 760 mL 6. Valvular heart disease ? Patient was noted to have severe tricuspid valve insufficiency on the echo obtained on 01/05/2024 patient to follow-up with cardiology 7. Severe pulmonary hypertension ? Complicating care echo from 12/26/2023 demonstrated .Severe pulmonary hypertension. Pulmonary artery systolic pressure estimated at 60 mmHg. 8. Hypertension -blood pressure controlled, home medications continued with dose adjustment as needed 9. Hypothyroidism -patient is on levothyroxine home dose continued 10 . Diabetes mellitus type 2 with complications including diabetic nephropathy - Patient is on oral agent held on admission placed on scheduled insulin with Accu-Cheks before meals and at bedtime with sliding scale coverage 11. Morbid obesity -with BMI of 41.7 lifestyle modification including weight loss advised 12. History of right breast CA -status post mastectomy with subsequent neoadjuvant chemotherapy patient was managed on tamoxifen for 5 years 13. Chronic hypoxic respiratory failure ? Patient is on home oxygen 5 L baseline 14. DVT prophylaxis -patient is on Eliquis 15. Anemia ? Secondary to chronic disorder monitoring H&H and transfuse if patient becomes symptomatic or hemoglobin falls below 7 Time spent in the patient's overall evaluation,decision-making process, review of diagnostic data, adjustment of management, discussion with other providers, nursing nursing and ancillary staff involved in patient's care documentation, 50 Minutes Charges/Coding Visit Charges Inpatient E&M: 97317 Subs Hosp L3
[2024-01-17] MEDS: APIXABAN 2.5 MG TABLET (WCH) PO (07:56)
[2024-01-17] MEDS: Potassium Chloride Oral Tablet 20 MEQ PO ×2 (07:58→17:01)
[2024-01-17] MEDS: Spironolactone 25 MG Tablet PO (08:02)
[2024-01-17] MEDS: Furosemide 40 MG/4 ML Vial IV ×2 (08:02→17:02)
[2024-01-17] MEDS: guaiFENesin 1,200 MG Tablet 1200 MG PO ×2 (08:02→20:27)
[2024-01-17] MEDS: Metoprolol Tartrate 100 MG Tablet PO ×2 (08:03→20:26)
[2024-01-17] MEDS: Cholecalciferol (VIT D3) 25 MCG TABLET (1,000 UNITS) PO (08:04)
[2024-01-17] MEDS: SACUBITRIL/VALSARTAN 49-51 MG TABLET 1 EACH PO ×2 (08:04→20:28)
[2024-01-17] MEDS: Azithromycin 250 MG Tablet 500 MG PO (08:05)
[2024-01-17] MEDS: Iron Polysaccharide Complex 150 MG CAPSULE PO (08:05)
[2024-01-17] MEDS: Insulin Glargine-YFGN 100 UNIT/ML Pen 20 UNIT SC (08:05)
[2024-01-17] MEDS: dilTIAZem CD 120 MG Capsule PO ×2 (08:53→20:26)
--- NOTE | 2024-01-17 09:30 | PN.CC_ITS ---
Objective Data Objective Data Vital Signs: Vital Signs Last response 3 Temperature 36.4 C L 01/17/24 02:00 Temperature Source Temporal 01/17/24 02:00 Pulse Rate 96 01/17/24 08:03 Pulse Strength Normal (2+) 01/17/24 08:41 Respiratory Rate 22 H 01/17/24 08:00 Respiratory Effort Labored 01/17/24 00:00 Respiratory Depth Normal 01/17/24 08:00 Respiratory Pattern Tachypnea 01/17/24 08:00 Blood Pressure 129/74 H 01/17/24 08:03 Blood Pressure Mean 81 01/17/24 07:00 Blood Pressure Source Monitor 01/17/24 07:00 Blood Pressure Position Semi-Fowlers 01/17/24 00:00 Blood Pressure Location Right Arm 01/17/24 00:00 Pulse Ox 91 01/17/24 08:00 Oxygen Delivery Method Bi-pap 01/17/24 08:00 Oxygen Flow Rate (L/min) 5 01/17/24 07:00 Fraction of Inspired Oxygen (FIO2) 35 01/17/24 08:00 I&O: I&O Last 24 Hours 3 01/16/24 01/16/24 01/17/24 11:59 23:59 11:59 Intake Total 229.83 / 1009.83 770.00 / 1009.83 157.17 / 157.17 Output Total 400 / 2050 1500 / 2050 250 / 250 Balance -170.17 / -1040.17 -730.00 / -1040.17 -92.83 / -92.83 I&O: Total Stay 3 01/15/24 16:44 thru 01/17/24 09:18 Intake Total 1473.00 Output Total 2150 Balance -677.00 Current Meds Ordered / Administered: Current meds ordered / Administered 3 Generic Name Dose Route Start Last Admin Trade Name Freq PRN Reason Stop Dose Admin Apixaban 2.5 mg 01/16/24 10:00 01/17/24 07:56 Apixaban 2.5 Mg Tablet (Wch) PO 2.5 mg DAILY DAVID Administration Atorvastatin Calcium 80 mg 01/16/24 22:00 01/16/24 21:12 Atorvastatin Calcium 80 Mg Tablet PO 80 mg QHS DAVID Administration Azithromycin 500 mg 01/16/24 10:00 01/17/24 08:05 Azithromycin 250 Mg Tablet PO 500 mg Q24 DAVID Administration Cholecalciferol 25 mcg 01/16/24 10:00 01/17/24 08:04 Cholecalciferol (Vit D3) 25 Mcg Tablet (1,000 Units) PO 25 mcg DAILY DAVID Administration Diltiazem HCl 120 mg 01/17/24 10:00 01/17/24 08:53 Diltiazem Cd 120 Mg Capsule PO 120 mg Q12 DAVID Administration Protocol Furosemide 40 mg 01/16/24 10:00 01/17/24 08:02 Furosemide 40 Mg/4 Ml Vial IV 40 mg BID@1000,1800 DAVID Administration Guaifenesin 1,200 mg 01/16/24 02:15 01/17/24 08:02 Guaifenesin 1,200 Mg Tablet PO 1,200 mg BID DAVID Administration Piperacillin Sod/Tazobactam 50 mls @ 12.5 mls/hr 01/16/24 00:29 01/17/24 05:26 Sod 3.375 gm/ Sodium Chloride IV 12.5 mls/hr Q8 DAVID Administration Sodium Chloride 500 mls @ 15 mls/hr 01/16/24 00:50 IV .[id number] PRN Saline Flush Sodium Chloride 500 mls @ 15 mls/hr 01/16/24 00:50 IV .[id number] PRN Additional IVPB Infusion Insulin Glargine 20 unit 01/16/24 10:00 01/17/24 08:05 Insulin Glargine-Yfgn 100 Unit/Ml Pen SC 20 unit DAILY DAVID Administration Ipratropium [place] 0.5 mg 01/16/24 22:30 01/17/24 06:33 Ipratropium 0.5 Mg/2.5 Ml Solution INHALATION 0.5 mg Q6HWA.RT DAVID Administration Labetalol HCl 20 mg 01/16/24 02:31 Labetalol (Prefilled) 20 Mg/4 Ml Vial IV Q4H PRN PRN SBP>180 Levothyroxine Sodium 200 mcg 01/16/24 06:00 01/17/24 05:25 Levothyroxine 100 Mcg Tablet PO 200 mcg DAILY@0600 DAVID Administration Levothyroxine Sodium 50 mcg 01/16/24 06:00 01/17/24 05:26 Levothyroxine 50 Mcg Tablet PO 50 mcg DAILY@0600 DAVID Administration Metoprolol Tartrate 100 mg 01/16/24 10:00 01/17/24 08:03 Metoprolol Tartrate 100 Mg Tablet PO 100 mg BID DAVID Administration Protocol Polysaccharide Iron Complex 150 mg 01/16/24 10:00 01/17/24 08:05 Iron Polysaccharide Complex 150 Mg Capsule PO 150 mg DAILY DAVID Administration Potassium Chloride 20 meq 01/16/24 08:00 01/17/24 07:58 Potassium Chloride Oral Tablet 20 Meq PO 20 meq BIDCM DAVID Administration Prednisone 40 mg 01/17/24 12:00 Prednisone 20 Mg Tablet PO [facility] Sacubitril/Valsartan 1 each 01/16/24 10:00 01/17/24 08:04 Sacubitril/Valsartan 49-51 Mg Tablet PO 1 each BID DAVID Administration Sodium Chloride 10 - 40 ml 01/16/24 00:50 01/16/24 02:43 0.9% Saline Lock 10 Ml Syringe IV 20 ml UD PRN Administration SALINE FLUSH Spironolactone 25 mg 01/16/24 10:00 01/17/24 08:02 Spironolactone 25 Mg Tablet PO 25 mg DAILY DAVID Administration Protocol Lab / Micro Data 01/17/24 05:35 01/17/24 05:35 Labs: Laboratory Results - last 24 hr 01/16/24 11:15: Troponin I High Sens 16 01/17/24 05:35: WBC 8.5, RBC 3.58 L, Hgb 9.6 L, Hct 32.7 L, MCV 91.3, MCH 26.8 L , MCHC 29.4 L, RDW Std Deviation 54.7 H, RDW Coeff of Sudha 16.4 H, Plt Count 252, MPV 10.5, Immature Gran % (Auto) 0.500, Neut % (Auto) 92.5 H, Lymph % (Auto) 4.2 L, [place] % (Auto) 2.7, Eos % (Auto) 0.0, Baso % (Auto) 0.1, Absolute Neuts (auto) 7.9 H, Absolute Lymphs (auto) 0.36 L, Nucleated RBC % 0, Sodium 140, Potassium 3.9, Chloride 103, Carbon Dioxide 32.0, Anion Gap 5, BUN 36 H, Creatinine 1.63 H , Estim Creat Clear Calc 33.94, Est GFR (MDRD) Af Amer 39 L, Est GFR (MDRD) Non- Af 32 L, BUN/Creatinine Ratio 22.1 H, Glucose 236 H, Calcium 8.8, Phosphorus 4.3, Magnesium 2.3 Micro: Microbiology 01/15/24 19:45 Urine, Catheterized Urine Culture - Preliminary Culture exhibits no growth. Assessment and Plan . Assessment and plan: Critical Care Time: The entirety of this encounter was done via Telemedicine Subjective Subjective 84 yo chronically ill and debilitated woman admitted 01/15/24 w/ dyspnea. She is morbidly obese, a former smoker, chronic hypoxemia, chronic CHF and chronic AF. She has a chronic left pleural effusion - apparently noted to be transudative in the past. Noted atrial fibrillation w/ tachycardia on presentation. pCXR reveals L>R effusions w/ bibasilar opacities. ABG reveals compensated chronic hypercapnia. BNP around 600. Viral panel (-) Prior TTE reveals bi-atrial dilation, e/o significant PAH, modestly decreased RVSF. Sub: Pt seen and examined. She is currently back to her home 5L [place]. Did not use NIV over night.. HR controlled and off cardizem gtt. Diuresing well. PE: GEN NAD, morbidly obese HEENT o/p clear; O2 via N/C NECK obese COR irreg CHEST decreased ABD soft EXT minimal edema SKIN w/d BELEN NF A/P #Acute and chronic respiratory failure w/ hypoxemia and hypercapnia #Chronic L>R pleural effusions #Chronic CHF #Chronic atrial fibrillation #Morbid obesity #Former tobacco use #Likely JASVIR -supplemental O2 -she would likely benefit from nocturnal PPV support indefinitely but patient did not use overnight; recommend on-going counseling and outpatient F/U -HR control -continue NOAC -Cont diuresis with net neg I/O target -inhaled atroventl short course ABX and steroids reasonable Can downgrade from my stand point. Will sign off but available as needed. The entirety of this encounter performed using telemedicine
--- NOTE | 2024-01-17 10:10 | CASEMGMT ---
FLETCHER CM to pt room at this time to discuss DC planning. Pt states again that she would like to have [facility] continue care. Pt only wants SN as she declined PT, OT, and SW. TC to Michelle and Michelle states that they can resume care on Saturday, 01/20. TC to Damon again. Damon states that the pt current oxygen order states 4-5L cont. Pt has a portable tank at bedside. Pt states that she will have a ride home if she were to DC over the weekend. Pt denies further questions or concerns at this time. DC plan updated.
[2024-01-17] MEDS: predniSONE 20 MG Tablet 40 MG PO (13:16)
[2024-01-17] MEDS: 0.9% Saline Lock 10 ML Syringe IV ×2 (17:03→22:07)
[2024-01-17] MEDS: Atorvastatin Calcium 80 MG Tablet PO (20:26)
[2024-01-17] MEDS: dilTIAZem 25 MG/5 ML Vial 20 MG IV BOLUS (23:12)
[2024-01-18] VITALS (24 sets, daily range): BP systolic 109–133; BP diastolic 59–89; PULSE 72–127; RESP 12–27; TEMP 36.6–36.9; O2SAT 93–98; BMI 41.8
[2024-01-18] MEDS: Diltiazem 125 MG in Dextrose 5%-Water (100mL Bag) 100 ML 10 MG IV (00:45)
[2024-01-18] MEDS: Acetaminophen 325 MG Tablet 650 MG PO (01:09)
[2024-01-18] MEDS: 0.9% Saline Lock 10 ML Syringe IV ×2 (01:10→13:13)
[2024-01-18] MEDS: MELATONIN 3 MG TABLET 6 MG PO (01:10)
[2024-01-18] MEDS: Levothyroxine 100 MCG Tablet 200 MCG PO (04:53)
[2024-01-18] MEDS: Levothyroxine 50 MCG Tablet PO (04:53)
[2024-01-18] MEDS: Piperacil/Tazobactam 3.375 GM in 0.9% Normal Saline (50mL MB+) 50 ML IV ×3 (04:58→21:13)
[2024-01-18 06:47] LABS: Absolute Lymphocyte Count 0.38 X10^3/uL (0.83-4.51); Basophil# 0.01 X10^3/uL; Basophil% 0.1 % (0-1); Hematocrit 28.9 % (37-47); Hemoglobin 8.8 g/dL (12.0-15.0); Lymphocyte # 0.38 X10^3/ul (0.83-4.51); Lymphocyte % 3.8 % (19-41); Mean Corp Hgb Conc 30.4 g/dL (32-36); Mean Corpuscular Volume 88.7 fL (81-99); Mean Platelet Vol. 10.2 fl (6.2-12.0); Monocyte# 0.47 X10^3/uL; Monocyte% 4.7 % (0-10); NRBC Flagged by Analyzer 0 % (0-5); Neutrophil # 8.98 X10^3/uL (2.7-7.7); Neutrophil % 90.8 % (47-70); POSITIVE DIFFERENTIAL YES; Platelet Count 269 K/mm3 (150-450); RBC Distribution Width CV 16.1 % (11.6-14.6); RBC Distribution Width SD 52.2 fl (35.1-43.9); Red Blood Count 3.26 M/mm3 (4.2-5.4); White Blood Count 9.9 K/mm3 (4.4-11.0)
[2024-01-18 07:19] LABS: Anion Gap 7 (5-15); BUN 45 mg/dL (7-18); BUN/Creat Ratio 25.1 RATIO (10-20); Calcium,Total 8.3 mg/dL (8.5-10.1); Chloride 102 mmol/L (98-107); Creatinine, Serum 1.79 mg/dL (0.55-1.02); EST Glomerular Filtration Rate 29 mL/min (>60); Est Glom Filt Rate - Afr Amer 35 mL/min (>60); Estimated Creatinine Clearance 30.92 ml/min; Glucose 327 mg/dL (74-106); Potassium 3.7 mmol/L (3.5-5.1); Sodium Level 139 mmol/L (136-145)
[2024-01-18] MEDS: Ipratropium 0.5 MG/2.5 ML SOLUTION INHALATION ×3 (07:26→19:37)
--- NOTE | 2024-01-18 07:42 | PN.HOSP_ITS ---
Reason for Visit Reason for Visit: Diagnoses Essential (primary) hypertension (01/15/24) Longstanding persistent atrial fibrillation (01/15/24) Acute on chronic diastolic (congestive) heart failure (01/15/24) Pneumonia, unspecified organism (01/15/24) Chronic obstructive pulmonary disease with (acute) exacerbation (01/15/24) Other forms of dyspnea (01/15/24) Objective Data Objective Data Vital Signs: Vital Signs Temp Pulse Resp BP Pulse Ox O2 Del Method O2 Flow Rate 98.4 F 85 24 H 110/71 98 Bi-pap 5 01/18/24 04:00 01/18/24 06:00 01/18/24 06:00 01/18/24 06:00 01/18/24 06:00 01/18/24 06:00 01/18/24 05:00 FiO2 35 01/18/24 06:00 Oxygen Flow Rate (L/min) 5 Oxygen Delivery Method Bi-pap Weight: 120.7 kg Body Mass Index (BMI) 41.8 Intake & Output: Intake and Output for Last 24 Hours 01/16/24 01/17/24 01/18/24 23:59 23:59 23:59 Intake Total 999.83 / 1009.83 497.17 / 497.17 342.5 / 342.5 Output Total 1900 / 2050 500 / 500 500 / 500 Balance -900.17 / -1040.17 -2.83 / -2.83 -157.5 / -157.5 Lab / Micro Data 01/18/24 06:35 01/18/24 06:35 Labs: Laboratory Results - last 24 hr 01/18/24 06:35: WBC 9.9, RBC 3.26 L, Hgb 8.8 L, Hct 28.9 L, MCV 88.7, MCH 27.0, MCHC 30.4 L, RDW Std Deviation 52.2 H, RDW Coeff of Sudha 16.1 H, Plt Count 269, MPV 10.2, Immature Gran % (Auto) 0.600, Neut % (Auto) 90.8 H, Lymph % (Auto) 3.8 L, [place] % (Auto) 4.7, Eos % (Auto) 0.0, Baso % (Auto) 0.1, Absolute Neuts (auto) 9.0 H, Absolute Lymphs (auto) 0.38 L, Nucleated RBC % 0, Sodium 139, Potassium 3.7, Chloride 102, Carbon Dioxide 30.0, Anion Gap 7, BUN 45 H, Creatinine 1.79 H , Estim Creat Clear Calc 30.92, Est GFR (MDRD) Af Amer 35 L, Est GFR (MDRD) Non- Af 29 L, BUN/Creatinine Ratio 25.1 H, Glucose 327 H, Calcium 8.3 L Micro: Microbiology 01/15/24 19:45 Urine, Catheterized Urine Culture - Preliminary Culture exhibits no growth. 01/16/24 19:45 Urine Catheter - Sidhu Legionella Antigen - Final 01/16/24 19:45 Urine Catheter - Sidhu Streptococcus pneumoniae Antigen (M - Final 01/15/24 18:15 Mucosa - Nose SARS-CoV-2, Influenza & RSV (PCR) - Final Physical Exam Narrative GENERAL: cooperative HEENT: Atraumatic; normocephalic EYES; Anicteric, Normal Conjunctiva NECK; supple, normal thyroid, RESPIRATORY: Diminished to auscultation with bilateral rhonchi CARDIOVASCULAR: Irregularly irregular, systolic murmur GI: soft, normoactive bowel sounds, : No Renal angle tenderness; EXTREMITIES: edema, no clubbing, MUSCULOSKELETAL: no muscle wasting NEURO: Awake; no lateralizing signs. SKIN: No Rash PSYCH; Flat affect Assessment & Plan Assessment/Plan (1) Acute on chronic heart failure with preserved ejection fraction (HFpEF): (2) COPD exacerbation: (3) Pneumonia: PLAN: Plan Patient is an 84-year-old lady with underlying history of COPD who presented with progressive shortness of breath cough and sore throat. An assessment of acute on chronic hypoxic respiratory failure secondary to COPD exacerbation and left-sided pneumonia made placed on noninvasive ventilation BiPAP admitted to the intensive care unit for further management 1. Acute on chronic hypoxic and hypercapnic respiratory failure ? Secondary to combination of pneumonia and COPD exacerbation. Patient was placed on noninvasive isolation admitted to the intensive care unit with treatment of the underlying clinical issues ? 01/17/2024; patient has been weaned off BiPAP currently on nasal cannula ? 01/18/2024; pulmonology is recommending nocturnal PPV on discharge. 2. COPD with acute exacerbation ? Patient started on bronchodilator treatment, systemic steroid as well as antibiotic therapy. Patient placed on oxygen titrated to keep saturation greater than 90. 3. Pneumonia - Suspected to be secondary to with suspected multidrug-resistant organisms, Blood and sputum cultures sent. Patient placed on Rocephin and Zithromax and placed on oxygen titrated to keep Pulse Ox greater than 90 4. Paroxysmal A-fib with RVR ? Patient was started on Cardizem drip titrated to keep heart rate less than 100 patient is already on systemic anticoagulation with apixaban continued ? 01/17/2024; plan is for patient to be weaned off Cardizem 5. Acute on chronic congestive heart failure served ejection fraction Echo obtained on 12/26/2023 demonstrated EF of 65% Mild global right ventricular systolic dysfunction.There is severe biatrial dilatation. Moderate mitral annular calcification. Aortic sclerosis, no stenosis.. Patient was started on Lasix, fluid restriction, daily weight and strict input and output. Response to therapy being monitored with above parameters ? 01/17/2024 patient is in a negative fluid balance of 760 mL ? 01/18/2024; did decrease Lasix dose given worsening kidney function 6. Valvular heart disease ? Patient was noted to have severe tricuspid valve insufficiency on the echo obtained on 01/05/2024 patient to follow-up with cardiology 7. Severe pulmonary hypertension ? Complicating care echo from 12/26/2023 demonstrated .Severe pulmonary hypertension. Pulmonary artery systolic pressure estimated at 60 mmHg. 8. Hypertension -blood pressure controlled, home medications continued with dose adjustment as needed 9. Hypothyroidism -patient is on levothyroxine home dose continued 10 . Diabetes mellitus type 2 with complications including diabetic nephropathy - Patient is on oral agent held on admission placed on scheduled insulin with Accu-Cheks before meals and at bedtime with sliding scale coverage ? 01/18/2024; patient blood glucose levels markedly elevated due to concomitant use of steroid adjusted patient insulin regimen 11. Morbid obesity -with BMI of 41.7 lifestyle modification including weight loss advised 12. History of right breast CA -status post mastectomy with subsequent neoadjuvant chemotherapy patient was managed on tamoxifen for 5 years 13. Chronic hypoxic respiratory failure ? Patient is on home oxygen 5 L baseline 14. DVT prophylaxis -patient is on Eliquis 15. Anemia ? Secondary to chronic disorder monitoring H&H and transfuse if patient becomes symptomatic or hemoglobin falls below 7 16. Chronic kidney disease stage III ? Baseline creatinine 1.36 patient kidney function did worsen with diuresis Lasix dose subsequently adjusted repeat BMP ordered in July Time spent in the patient's overall evaluation,decision-making process, review of diagnostic data, adjustment of management, discussion with other providers, nursing nursing and ancillary staff involved in patient's care documentation, 50 Minutes Charges/Coding Visit Charges Inpatient E&M: 61047 Subs Hosp L3
[2024-01-18] MEDS: Insulin Lispro 100 UNIT/ML INSULN.PEN SC ×4 (08:29→21:15)
[2024-01-18] MEDS: Insulin Glargine-YFGN 100 UNIT/ML Pen 25 UNIT SC ×2 (08:29→16:57)
[2024-01-18 08:40] LABS: Magnesium 2.6 mg/dL (1.6-2.6)
[2024-01-18] MEDS: Furosemide 40 MG Tablet PO ×2 (08:46→16:57)
[2024-01-18] MEDS: predniSONE 20 MG Tablet 40 MG PO (08:46)
[2024-01-18] MEDS: Potassium Chloride Oral Tablet 20 MEQ PO ×2 (08:46→16:57)
[2024-01-18] MEDS: Azithromycin 250 MG Tablet 500 MG PO (08:46)
[2024-01-18] MEDS: Cholecalciferol (VIT D3) 25 MCG TABLET (1,000 UNITS) PO (08:46)
[2024-01-18] MEDS: dilTIAZem CD 120 MG Capsule PO ×2 (08:46→21:14)
[2024-01-18] MEDS: guaiFENesin 1,200 MG Tablet 1200 MG PO ×2 (08:46→21:13)
[2024-01-18] MEDS: SACUBITRIL/VALSARTAN 49-51 MG TABLET 1 EACH PO ×2 (08:46→21:14)
[2024-01-18] MEDS: Metoprolol Tartrate 100 MG Tablet PO ×2 (08:46→21:14)
[2024-01-18] MEDS: Iron Polysaccharide Complex 150 MG CAPSULE PO (08:46)
[2024-01-18] MEDS: APIXABAN 2.5 MG TABLET (WCH) PO (08:46)
[2024-01-18] MEDS: Spironolactone 25 MG Tablet PO (08:46)
--- NOTE | 2024-01-18 09:57 | PN.CARD_ITS ---
Subjective Subjective Patient seen and evaluated. Doing better this morning. Objective Data Vital Signs: Vital Signs Temp Pulse Resp BP Pulse Ox O2 Del Method O2 Flow Rate 98.4 F 79 25 H 116/89 H 96 Nasal Cannula 5 01/18/24 04:00 01/18/24 09:00 01/18/24 09:00 01/18/24 09:00 01/18/24 09:00 01/18/24 09:00 01/18/24 09:00 FiO2 35 01/18/24 08:00 Oxygen Flow Rate (L/min) 5 Oxygen Delivery Method Nasal Cannula Weight: 266 lb 1.567 oz Body Mass Index (BMI) 41.8 Intake & Output: Intake and Output for Last 24 Hours 01/16/24 01/17/24 01/18/24 23:59 23:59 23:59 Intake Total 999.83 / 1009.83 497.17 / 497.17 430.0 / 430.0 Output Total 1900 / 2050 500 / 500 500 / 500 Balance -900.17 / -1040.17 -2.83 / -2.83 -70.0 / -70.0 Lab / Micro Data 01/18/24 06:35 01/18/24 06:35 Labs: Laboratory Results - last 24 hr 01/18/24 06:35: WBC 9.9, RBC 3.26 L, Hgb 8.8 L, Hct 28.9 L, MCV 88.7, MCH 27.0, MCHC 30.4 L, RDW Std Deviation 52.2 H, RDW Coeff of Sudha 16.1 H, Plt Count 269, MPV 10.2, Immature Gran % (Auto) 0.600, Neut % (Auto) 90.8 H, Lymph % (Auto) 3.8 L, [place] % (Auto) 4.7, Eos % (Auto) 0.0, Baso % (Auto) 0.1, Absolute Neuts (auto) 9.0 H, Absolute Lymphs (auto) 0.38 L, Nucleated RBC % 0, Sodium 139, Potassium 3.7, Chloride 102, Carbon Dioxide 30.0, Anion Gap 7, BUN 45 H, Creatinine 1.79 H , Estim Creat Clear Calc 30.92, Est GFR (MDRD) Af Amer 35 L, Est GFR (MDRD) Non- Af 29 L, BUN/Creatinine Ratio 25.1 H, Glucose 327 H, Calcium 8.3 L, Magnesium 2.6 Micro: Microbiology 01/15/24 19:45 Urine, Catheterized Urine Culture - Final Culture exhibits no growth. Cardiology Labs/Tests 01/18/24 06:35: WBC 9.9, RBC 3.26 L, Hgb 8.8 L, Hct 28.9 L, MCV 88.7, MCH 27.0, MCHC 30.4 L, Plt Count 269, MPV 10.2, Immature Gran % (Auto) 0.600, Neut % (Auto) 90.8 H, Lymph % (Auto) 3.8 L, [place] % (Auto) 4.7, Eos % (Auto) 0.0, Baso % (Auto) 0.1, Absolute Neuts (auto) 9.0 H, Nucleated RBC % 0, Sodium 139, Potassium 3.7, Chloride 102, Carbon Dioxide 30.0, Anion Gap 7, BUN 45 H, C reatinine 1.79 H, Est GFR (MDRD) Af Amer 35 L, Est GFR (MDRD) Non-Af 29 L, B UN/Creatinine Ratio 25.1 H, Glucose 327 H, Calcium 8.3 L, Magnesium 2.6 Rhythm: EKG: ECHO: Stress Test: Cardiac Cath: PCI: CT Surgery: Holter monitor: EPS: PPM: CXR: Chest CT Scan: Physical Exam Const alert, oriented x3 and no apparent distress General Appearance: cooperative HEENT hearing grossly normal bilaterally Head and Scalp: atraumatic Eyes EOMs intact bilaterally Neck General: normal visual inspection Chest inspection of chest normal and palpation of chest normal Resp normal respiratory effort Auscultation: clear to auscultation bilaterally Cardio S1 normal heart sound and S2 normal heart sound Jugular Venous Distention: JVD Rhythm: abnormal rhythm irregularly irregular GI normal to inspection, nondistended, normoactive bowel sounds Extremity normal capillary refill and no pedal edema Peripheral Pulses: Yes pulses 2+ throughout and femoral pulses present Skin no rashes or lesions noted Neuro oriented x3 and CN's II-XII intact bilaterally Psych Appearance: grossly normal and appropriate Assessment & Plan Assessment/Plan (1) Acute on chronic heart failure with preserved ejection fraction (HFpEF): PLAN: She does have heart failure with preserved low ventricular systolic function. Recommendation will be to continue diuretics intravenously. There is no reason to repeat the echocardiogram at this time. She will continue with her sacubitril and beta-triny. (2) Longstanding persistent atrial fibrillation: PLAN: She does have longstanding persistent atrial fibrillation. Her ventricular response rate is elevated at this time. My recommendation will be to continue the intravenous Cardizem during this acute phase of her illness and this can be weaned off back to oral beta-triny and a calcium channel triny. (3) Essential (primary) hypertension: PLAN: Her blood pressure appears to be under good control at this time I would not make any major changes. (4) HARDEN (dyspnea on exertion): PLAN: She does have pulmonary hypertension with moderate pulmonary hypertension. We will need to adjust her diuretics as appropriate. Spironolactone was added. And she is tolerating it.
[2024-01-18 11:58] LABS: Bedside Glucose 228 mg/dL (74-106)
[2024-01-18 17:17] LABS: Bedside Glucose 193 mg/dL (74-106)
[2024-01-18] MEDS: Atorvastatin Calcium 80 MG Tablet PO (21:15)
[2024-01-18 21:39] LABS: Bedside Glucose 212 mg/dL (74-106)
--- NOTE | 2024-01-18 22:46 | CPS ---
patient does not want to wear BIPAP at this time; wants to use for rescue situations only
[2024-01-19] VITALS (25 sets, daily range): BP systolic 120–151; BP diastolic 56–100; PULSE 83–106; RESP 15–27; TEMP 36.4–36.9; O2SAT 92–99; BMI 42.7
[2024-01-19] MEDS: Piperacil/Tazobactam 3.375 GM in 0.9% Normal Saline (50mL MB+) 50 ML IV ×3 (05:12→21:07)
[2024-01-19] MEDS: Levothyroxine 100 MCG Tablet 200 MCG PO (05:12)
[2024-01-19] MEDS: Levothyroxine 50 MCG Tablet PO (05:13)
[2024-01-19 05:54] LABS: Absolute Lymphocyte Count 0.51 X10^3/uL (0.83-4.51); Basophil# 0.01 X10^3/uL; Basophil% 0.1 % (0-1); Hematocrit 32.1 % (37-47); Hemoglobin 9.5 g/dL (12.0-15.0); Lymphocyte # 0.51 X10^3/ul (0.83-4.51); Lymphocyte % 5.5 % (19-41); Mean Corp Hgb Conc 29.6 g/dL (32-36); Mean Corpuscular Hgb 26.8 pg (27.0-32.0); Mean Corpuscular Volume 90.7 fL (81-99); Mean Platelet Vol. 10.2 fl (6.2-12.0); Monocyte# 0.63 X10^3/uL; Monocyte% 6.8 % (0-10); NRBC Flagged by Analyzer 0 % (0-5); Neutrophil # 7.96 X10^3/uL (2.7-7.7); Neutrophil % 86.1 % (47-70); POSITIVE DIFFERENTIAL YES; Platelet Count 275 K/mm3 (150-450); RBC Distribution Width CV 16.2 % (11.6-14.6); RBC Distribution Width SD 53.9 fl (35.1-43.9); Red Blood Count 3.54 M/mm3 (4.2-5.4); White Blood Count 9.3 K/mm3 (4.4-11.0)
[2024-01-19 06:56] LABS: Anion Gap 6 (5-15); BUN 43 mg/dL (7-18); Calcium,Total 8.3 mg/dL (8.5-10.1); Chloride 102 mmol/L (98-107); Creatinine, Serum 1.72 mg/dL (0.55-1.02); EST Glomerular Filtration Rate 30 mL/min (>60); Est Glom Filt Rate - Afr Amer 36 mL/min (>60); Estimated Creatinine Clearance 32.63 ml/min; Glucose 264 mg/dL (74-106); Sodium Level 139 mmol/L (136-145)
[2024-01-19] MEDS: Ipratropium 0.5 MG/2.5 ML SOLUTION INHALATION ×3 (07:02→19:27)
[2024-01-19] MEDS: Insulin Lispro 100 UNIT/ML INSULN.PEN SC ×4 (08:07→21:06)
[2024-01-19] MEDS: Insulin Glargine-YFGN 100 UNIT/ML Pen 25 UNIT SC ×2 (08:07→16:30)
--- NOTE | 2024-01-19 08:20 | PCM.PN.HOSP ---
Reason for Visit Reason for Visit: Diagnoses Essential (primary) hypertension (01/15/24) Longstanding persistent atrial fibrillation (01/15/24) Acute on chronic diastolic (congestive) heart failure (01/15/24) Pneumonia, unspecified organism (01/15/24) Chronic obstructive pulmonary disease with (acute) exacerbation (01/15/24) Other forms of dyspnea (01/15/24) Subjective Subjective Patient seen back to baseline regarding her breathing. She is however had runs of nonsustained VT on the monitor. Objective Data Objective Data Vital Signs: Vital Signs Temp Pulse Resp BP Pulse Ox O2 Del Method O2 Flow Rate 97.6 F L 87 15 133/75 H 98 Nasal Cannula 4 01/19/24 04:45 01/19/24 04:45 01/19/24 04:45 01/19/24 04:45 01/19/24 04:45 01/19/24 07:51 01/19/24 07:51 FiO2 35 01/18/24 08:00 Oxygen Flow Rate (L/min) 4 Oxygen Delivery Method Nasal Cannula Weight: 123.7 kg Body Mass Index (BMI) 42.7 Intake & Output: Intake and Output for Last 24 Hours 01/17/24 01/18/24 01/19/24 23:59 23:59 22:59 Intake Total 497.17 / 497.17 1220.0 / 1340.0 230 / 230 Output Total 500 / 500 500 / 500 975 / 975 Balance -2.83 / -2.83 720.0 / 840.0 -745 / -745 Lab / Micro Data 01/19/24 05:40 01/19/24 05:40 Labs: Laboratory Results - last 24 hr 01/18/24 11:29: POC Glucose 228 H 01/18/24 16:55: POC Glucose 193 H 01/18/24 21:12: POC Glucose 212 H 01/19/24 05:40: WBC 9.3, RBC 3.54 L, Hgb 9.5 L, Hct 32.1 L, MCV 90.7, MCH 26.8 L, MCHC 29.6 L, RDW Std Deviation 53.9 H, RDW Coeff of Sudha 16.2 H, Plt Count 275, MPV 10.2, Immature Gran % (Auto) 1.500 H, Neut % (Auto) 86.1 H, Lymph % (Auto) 5.5 L, [place] % (Auto) 6.8, Eos % (Auto) 0.0, Baso % (Auto) 0.1, Absolute Neuts (auto) 8.0 H, Absolute Lymphs (auto) 0.51 L, Nucleated RBC % 0, Sodium 139, Potassium 4.0, Chloride 102, Carbon Dioxide 31.0, Anion Gap 6, BUN 43 H, Creatinine 1.72 H, Estim Creat Clear Calc 32.63, Est GFR (MDRD) Af Amer 36 L, Est GFR (MDRD) Non-Af 30 L, BUN/Creatinine Ratio 25.0 H, Glucose 264 H, Calcium 8.3 L Micro: Microbiology 01/15/24 18:00 Blood Culture (Wb) - Anticubital Left Blood Culture - Preliminary No growth in 5 days. 01/17/24 22:40 Sputum, Expectorated/Coughed Gram Stain - Final 01/15/24 19:45 Urine, Catheterized Urine Culture - Final Culture exhibits no growth. 01/16/24 19:45 Urine Catheter - Sidhu Legionella Antigen - Final 01/16/24 19:45 Urine Catheter - Sidhu Streptococcus pneumoniae Antigen (M - Final 01/15/24 18:15 Mucosa - Nose SARS-CoV-2, Influenza & RSV (PCR) - Final Physical Exam Narrative GENERAL: cooperative HEENT: Atraumatic; normocephalic EYES; Anicteric, Normal Conjunctiva NECK; supple, normal thyroid, RESPIRATORY: Diminished to auscultation with bilateral rhonchi CARDIOVASCULAR: Irregularly irregular, systolic murmur GI: soft, normoactive bowel sounds, : No Renal angle tenderness; EXTREMITIES: edema, no clubbing, MUSCULOSKELETAL: no muscle wasting NEURO: Awake; no lateralizing signs. SKIN: No Rash PSYCH; Flat affect Assessment & Plan Assessment/Plan (1) Acute on chronic heart failure with preserved ejection fraction (HFpEF): (2) COPD exacerbation: (3) Pneumonia: PLAN: Plan Patient is an 84-year-old lady with underlying history of COPD who presented with progressive shortness of breath cough and sore throat. An assessment of acute on chronic hypoxic respiratory failure secondary to COPD exacerbation and left-sided pneumonia made placed on noninvasive ventilation BiPAP admitted to the intensive care unit for further management 1. Acute on chronic hypoxic and hypercapnic respiratory failure ? Secondary to combination of pneumonia and COPD exacerbation. Patient was placed on noninvasive isolation admitted to the intensive care unit with treatment of the underlying clinical issues ? 01/17/2024; patient has been weaned off BiPAP currently on nasal cannula ? 01/18/2024; pulmonology is recommending nocturnal PPV on discharge. ? 01/19/2024; patient back to baseline regarding her oxygen requirement. Currently on 4 L at rest 2. COPD with acute exacerbation ? Patient started on bronchodilator treatment, systemic steroid as well as antibiotic therapy. Patient placed on oxygen titrated to keep saturation greater than 90. ? 01/19/2024 significantly improved 3. Pneumonia - Suspected to be secondary to with suspected multidrug-resistant organisms, Blood and sputum cultures sent. Patient placed on Rocephin and Zithromax and placed on oxygen titrated to keep Pulse Ox greater than 90 4. Paroxysmal A-fib with RVR ? Patient was started on Cardizem drip titrated to keep heart rate less than 100 patient is already on systemic anticoagulation with apixaban continued ? 01/17/2024; plan is for patient to be weaned off Cardizem 5. Acute on chronic congestive heart failure served ejection fraction Echo obtained on 12/26/2023 demonstrated EF of 65% Mild global right ventricular systolic dysfunction.There is severe biatrial dilatation. Moderate mitral annular calcification. Aortic sclerosis, no stenosis.. Patient was started on Lasix, fluid restriction, daily weight and strict input and output. Response to therapy being monitored with above parameters ? 01/17/2024 patient is in a negative fluid balance of 760 mL ? 01/18/2024; did decrease Lasix dose given worsening kidney function ? 01/19/2024; patient had runs of nonsustained VT 6. Valvular heart disease ? Patient was noted to have severe tricuspid valve insufficiency on the echo obtained on 01/05/2024 patient to follow-up with cardiology 7. Severe pulmonary hypertension ? Complicating care echo from 12/26/2023 demonstrated .Severe pulmonary hypertension. Pulmonary artery systolic pressure estimated at 60 mmHg. 8. Hypertension -blood pressure controlled, home medications continued with dose adjustment as needed 9. Hypothyroidism -patient is on levothyroxine home dose continued 10 . Diabetes mellitus type 2 with complications including diabetic nephropathy - Patient is on oral agent held on admission placed on scheduled insulin with Accu-Cheks before meals and at bedtime with sliding scale coverage ? 01/18/2024; patient blood glucose levels markedly elevated due to concomitant use of steroid adjusted patient insulin regimen 11. Morbid obesity -with BMI of 41.7 lifestyle modification including weight loss advised 12. History of right breast CA -status post mastectomy with subsequent neoadjuvant chemotherapy patient was managed on tamoxifen for 5 years 13. Chronic hypoxic respiratory failure ? Patient is on home oxygen 5 L baseline 14. DVT prophylaxis -patient is on Eliquis 15. Anemia ? Secondary to chronic disorder monitoring H&H and transfuse if patient becomes symptomatic or hemoglobin falls below 7 16. Chronic kidney disease stage III ? Baseline creatinine 1.36 patient kidney function did worsen with diuresis Lasix dose subsequently adjusted repeat BMP ordered in July Time spent in the patient's overall evaluation,decision-making process, review of diagnostic data, adjustment of management, discussion with other providers, nursing nursing and ancillary staff involved in patient's care documentation,38 Minutes Charges/Coding Visit Charges Inpatient E&M: 00559 Subs Hosp L2
[2024-01-19] MEDS: Potassium Chloride Oral Tablet 20 MEQ PO ×2 (09:01→16:30)
[2024-01-19] MEDS: guaiFENesin 1,200 MG Tablet 1200 MG PO ×2 (09:01→21:06)
[2024-01-19] MEDS: Iron Polysaccharide Complex 150 MG CAPSULE PO (09:02)
[2024-01-19] MEDS: predniSONE 20 MG Tablet 40 MG PO (09:02)
[2024-01-19] MEDS: dilTIAZem CD 120 MG Capsule PO ×2 (09:02→21:06)
[2024-01-19] MEDS: Azithromycin 250 MG Tablet 500 MG PO (09:02)
[2024-01-19] MEDS: Metoprolol Tartrate 100 MG Tablet PO ×2 (09:02→21:06)
[2024-01-19] MEDS: SACUBITRIL/VALSARTAN 49-51 MG TABLET 1 EACH PO ×2 (09:02→21:06)
[2024-01-19] MEDS: APIXABAN 2.5 MG TABLET (WCH) PO (09:03)
[2024-01-19] MEDS: Cholecalciferol (VIT D3) 25 MCG TABLET (1,000 UNITS) PO (09:03)
[2024-01-19] MEDS: Furosemide 40 MG Tablet PO ×2 (09:03→16:32)
[2024-01-19] MEDS: Spironolactone 25 MG Tablet PO (09:03)
[2024-01-19] MEDS: Amiodarone 150 MG in Dextrose 5%-Water (100mL Bag) 100 ML 600 MG IV BOLUS (11:18)
[2024-01-19] MEDS: 0.9% Saline Lock 10 ML Syringe IV (11:18)
[2024-01-19] MEDS: Amiodarone 360 MG in Dextrose 5% Viaflo Bag 192.8 ML 33.3 MG CONT INF (11:30)
[2024-01-19 11:49] LABS: Bedside Glucose 171 mg/dL (74-106)
--- NOTE | 2024-01-19 12:49 | PCM.PN.CARD ---
Subjective Subjective Patient seen and evaluated. Objective Data Vital Signs: Vital Signs Temp Pulse Resp BP Pulse Ox O2 Del Method O2 Flow Rate 98.4 F 95 24 H 127/78 H 93 Nasal Cannula 4 01/19/24 09:00 01/19/24 11:30 01/19/24 11:30 01/19/24 11:30 01/19/24 11:30 01/19/24 11:30 01/19/24 11:30 FiO2 35 01/18/24 08:00 Oxygen Flow Rate (L/min) 4 Oxygen Delivery Method Nasal Cannula Weight: 272 lb 11.389 oz Body Mass Index (BMI) 42.7 Intake & Output: Intake and Output for Last 24 Hours 01/17/24 01/18/24 01/19/24 23:59 23:59 22:59 Intake Total 497.17 / 497.17 1220.0 / 1340.0 883 / 883 Output Total 500 / 500 500 / 500 1625 / 1625 Balance -2.83 / -2.83 720.0 / 840.0 -742 / -742 Lab / Micro Data 01/19/24 05:40 01/19/24 05:40 Labs: Laboratory Results - last 24 hr 01/18/24 16:55: POC Glucose 193 H 01/18/24 21:12: POC Glucose 212 H 01/19/24 05:40: WBC 9.3, RBC 3.54 L, Hgb 9.5 L, Hct 32.1 L, MCV 90.7, MCH 26.8 L, MCHC 29.6 L, RDW Std Deviation 53.9 H, RDW Coeff of Sudha 16.2 H, Plt Count 275, MPV 10.2, Immature Gran % (Auto) 1.500 H, Neut % (Auto) 86.1 H, Lymph % (Auto) 5.5 L, [place] % (Auto) 6.8, Eos % (Auto) 0.0, Baso % (Auto) 0.1, Absolute Neuts (auto) 8.0 H, Absolute Lymphs (auto) 0.51 L, Nucleated RBC % 0, Sodium 139, Potassium 4.0, Chloride 102, Carbon Dioxide 31.0, Anion Gap 6, BUN 43 H, Creatinine 1.72 H, Estim Creat Clear Calc 32.63, Est GFR (MDRD) Af Amer 36 L, Est GFR (MDRD) Non-Af 30 L, BUN/Creatinine Ratio 25.0 H, Glucose 264 H, Calcium 8.3 L 01/19/24 11:22: POC Glucose 171 H Micro: Microbiology 01/17/24 22:40 Sputum, Expectorated/Coughed Gram Stain - Final 01/17/24 22:40 Sputum, Expectorated/Coughed Respiratory Culture - Preliminary Appears to be normal respiratory homero. Further studies to follow. 01/15/24 18:00 Blood Culture (Wb) - Anticubital Left Blood Culture - Preliminary No growth in 5 days. Cardiology Labs/Tests 01/19/24 05:40: WBC 9.3, RBC 3.54 L, Hgb 9.5 L, Hct 32.1 L, MCV 90.7, MCH 26.8 L, MCHC 29.6 L, Plt Count 275, MPV 10.2, Immature Gran % (Auto) 1.500 H, Neut % (Auto) 86.1 H, Lymph % (Auto) 5.5 L, [place] % (Auto) 6.8, Eos % (Auto) 0.0, Baso % (Auto) 0.1, Absolute Neuts (auto) 8.0 H, Nucleated RBC % 0, Sodium 139, Potassium 4.0, Chloride 102, Carbon Dioxide 31.0, Anion Gap 6, BUN 43 H, Creatinine 1.72 H, Est GFR (MDRD) Af Amer 36 L, Est GFR (MDRD) Non-Af 30 L, BUN/Creatinine Ratio 25.0 H, Glucose 264 H, Calcium 8.3 L Rhythm: EKG: ECHO: Stress Test: Cardiac Cath: PCI: CT Surgery: Holter monitor: EPS: PPM: CXR: Chest CT Scan: Physical Exam Const alert, oriented x3 and no apparent distress General Appearance: cooperative HEENT hearing grossly normal bilaterally Head and Scalp: atraumatic Eyes EOMs intact bilaterally Neck General: normal visual inspection Chest inspection of chest normal and palpation of chest normal Resp normal respiratory effort Auscultation: clear to auscultation bilaterally Cardio S1 normal heart sound and S2 normal heart sound Jugular Venous Distention: JVD Rhythm: abnormal rhythm irregularly irregular GI normal to inspection, nondistended, normoactive bowel sounds Extremity normal capillary refill and no pedal edema Peripheral Pulses: Yes pulses 2+ throughout and femoral pulses present Skin no rashes or lesions noted Neuro oriented x3 and CN's II-XII intact bilaterally Psych Appearance: grossly normal and appropriate Assessment & Plan Assessment/Plan (1) Acute on chronic heart failure with preserved ejection fraction (HFpEF): PLAN: She does have heart failure with preserved low ventricular systolic function. Recommendation will be to continue diuretics intravenously. There is no reason to repeat the echocardiogram at this time. She will continue with her sacubitril and beta-triny. (2) Longstanding persistent atrial fibrillation: PLAN: She does have longstanding persistent atrial fibrillation. Her ventricular response rate is better controlled at this time on the beta-triny. (3) Essential (primary) hypertension: PLAN: Her blood pressure appears to be under good control at this time I would not make any major changes. (4) HARDEN (dyspnea on exertion): PLAN: She does have pulmonary hypertension with moderate pulmonary hypertension. We will need to adjust her diuretics as appropriate. Spironolactone was added. And she is tolerating it. (5) V-tach: PLAN: Patient was noted to have wide-complex tachycardia of about 18 beats. The above is likely suggestive of V. tach. Ejection fraction is noted to be 40% potassium and magnesium are normal. I would load with amiodarone and convert to p.o. amiodarone. I do not think that we should proceed with any invasive testing at this time.
[2024-01-19 16:53] LABS: Bedside Glucose 347 mg/dL (74-106)
[2024-01-19] MEDS: Amiodarone 360 MG in Dextrose 5% Viaflo Bag 192.8 ML 16.7 MG CONT INF (18:04)
[2024-01-19] MEDS: Atorvastatin Calcium 80 MG Tablet PO (21:06)
[2024-01-19 21:54] LABS: Bedside Glucose 362 mg/dL (74-106)
[2024-01-20] VITALS (18 sets, daily range): BP systolic 115–150; BP diastolic 72–105; PULSE 85–98; RESP 20–29; TEMP 36.6; O2SAT 91–100; BMI 41.9
[2024-01-20] MEDS: Amiodarone 360 MG in Dextrose 5% Viaflo Bag 192.8 ML 16.7 MG CONT INF (05:46)
[2024-01-20] MEDS: Piperacil/Tazobactam 3.375 GM in 0.9% Normal Saline (50mL MB+) 50 ML IV (05:47)
[2024-01-20] MEDS: Levothyroxine 100 MCG Tablet 200 MCG PO (05:50)
[2024-01-20] MEDS: Levothyroxine 50 MCG Tablet PO (05:50)
[2024-01-20] MEDS: Ipratropium 0.5 MG/2.5 ML SOLUTION INHALATION (07:07)
--- NOTE | 2024-01-20 07:07 | PCM.PN.CARD ---
Subjective Subjective Patient seen and evaluated. Doing well no complaints. Objective Data Vital Signs: Vital Signs Temp Pulse Resp BP Pulse Ox O2 Del Method O2 Flow Rate 97.8 F 94 25 H 145/77 H 99 Nasal Cannula 4 01/19/24 21:00 01/20/24 06:00 01/20/24 06:00 01/20/24 06:00 01/20/24 06:00 01/20/24 06:00 01/20/24 06:00 FiO2 35 01/18/24 08:00 Oxygen Flow Rate (L/min) 4 Oxygen Delivery Method Nasal Cannula Weight: 267 lb 6.731 oz Body Mass Index (BMI) 41.9 Intake & Output: Intake and Output for Last 24 Hours 01/18/24 01/19/24 01/20/24 23:59 22:59 23:59 Intake Total 1220.0 / 1340.0 1215.39 / 1232.09 316.9 / 316.9 Output Total 500 / 500 1625 / 2125 1550 / 1550 Balance 720.0 / 840.0 -409.61 / -892.91 -1233.1 / -1233.1 Lab / Micro Data 01/19/24 05:40 01/19/24 05:40 Labs: Laboratory Results - last 24 hr 01/19/24 11:22: POC Glucose 171 H 01/19/24 16:29: POC Glucose 347 H 01/19/24 21:04: POC Glucose 362 H Micro: Microbiology 01/17/24 22:40 Sputum, Expectorated/Coughed Gram Stain - Final 01/17/24 22:40 Sputum, Expectorated/Coughed Respiratory Culture - Preliminary Appears to be normal respiratory homero. Further studies to follow. Cardiology Labs/Tests Rhythm: EKG: ECHO: Stress Test: Cardiac Cath: PCI: CT Surgery: Holter monitor: EPS: PPM: CXR: Chest CT Scan: Physical Exam Const alert, oriented x3 and no apparent distress General Appearance: cooperative HEENT hearing grossly normal bilaterally Head and Scalp: atraumatic Eyes EOMs intact bilaterally Neck General: normal visual inspection Chest inspection of chest normal and palpation of chest normal Resp normal respiratory effort Auscultation: clear to auscultation bilaterally Cardio S1 normal heart sound and S2 normal heart sound Jugular Venous Distention: JVD Rhythm: abnormal rhythm irregularly irregular GI normal to inspection, nondistended, normoactive bowel sounds Extremity normal capillary refill and no pedal edema Peripheral Pulses: Yes pulses 2+ throughout and femoral pulses present Skin no rashes or lesions noted Neuro oriented x3 and CN's II-XII intact bilaterally Psych Appearance: grossly normal and appropriate Assessment & Plan Assessment/Plan (1) Acute on chronic heart failure with preserved ejection fraction (HFpEF): PLAN: She does have heart failure with preserved low ventricular systolic function. Recommendation will be to continue diuretics intravenously. There is no reason to repeat the echocardiogram at this time. She will continue with her sacubitril and beta-triny. (2) Longstanding persistent atrial fibrillation: PLAN: She does have longstanding persistent atrial fibrillation. Her ventricular response rate is better controlled at this time on the beta-triny. (3) Essential (primary) hypertension: PLAN: Her blood pressure appears to be under good control at this time I would not make any major changes. (4) HARDEN (dyspnea on exertion): PLAN: She does have pulmonary hypertension with moderate pulmonary hypertension. We will need to adjust her diuretics as appropriate. Spironolactone was added. And she is tolerating it. (5) V-tach: PLAN: Patient was noted to have wide-complex tachycardia of about 18 beats. The above is likely suggestive of V. tach. Patient was placed on IV amiodarone and tolerated it quite well. Will switch her over to p.o. amiodarone today and discharge. Will obtain outpatient Holter monitor.
--- NOTE | 2024-01-20 07:29 | PCM.PN.HOSP ---
Reason for Visit Reason for Visit: Diagnoses Essential (primary) hypertension (01/15/24) Ventricular tachycardia, unspecified (01/15/24) Longstanding persistent atrial fibrillation (01/15/24) Acute on chronic diastolic (congestive) heart failure (01/15/24) Pneumonia, unspecified organism (01/15/24) Chronic obstructive pulmonary disease with (acute) exacerbation (01/15/24) Other forms of dyspnea (01/15/24) Subjective Subjective Patient was found to have intermittent A-fib with aberrancy. Case was discussed with cardiology Dr. Monroe patient was started on amiodarone Objective Data Objective Data Vital Signs: Vital Signs Temp Pulse Resp BP Pulse Ox O2 Del Method O2 Flow Rate 97.8 F 97 20 H 145/77 H 98 Nasal Cannula 5 01/19/24 21:00 01/20/24 07:09 01/20/24 07:09 01/20/24 06:00 01/20/24 07:09 01/20/24 07:09 01/20/24 07:09 FiO2 35 01/18/24 08:00 Oxygen Flow Rate (L/min) 5 Oxygen Delivery Method Nasal Cannula Weight: 121.3 kg Body Mass Index (BMI) 41.9 Intake & Output: Intake and Output for Last 24 Hours 01/18/24 01/19/24 01/20/24 23:59 22:59 23:59 Intake Total 1220.0 / 1340.0 1215.39 / 1232.09 316.9 / 316.9 Output Total 500 / 500 1625 / 2125 1550 / 1550 Balance 720.0 / 840.0 -409.61 / -892.91 -1233.1 / -1233.1 Lab / Micro Data 01/19/24 05:40 01/19/24 05:40 Labs: Laboratory Results - last 24 hr 01/19/24 11:22: POC Glucose 171 H 01/19/24 16:29: POC Glucose 347 H 01/19/24 21:04: POC Glucose 362 H Micro: Microbiology 01/17/24 22:40 Sputum, Expectorated/Coughed Gram Stain - Final 01/17/24 22:40 Sputum, Expectorated/Coughed Respiratory Culture - Preliminary Appears to be normal respiratory homero. Further studies to follow. 01/15/24 18:00 Blood Culture (Wb) - Anticubital Left Blood Culture - Preliminary No growth in 5 days. 01/15/24 19:45 Urine, Catheterized Urine Culture - Final Culture exhibits no growth. 01/16/24 19:45 Urine Catheter - Sidhu Legionella Antigen - Final 01/16/24 19:45 Urine Catheter - Sidhu Streptococcus pneumoniae Antigen (M - Final 01/15/24 18:15 Mucosa - Nose SARS-CoV-2, Influenza & RSV (PCR) - Final Physical Exam Narrative GENERAL: cooperative HEENT: Atraumatic; normocephalic EYES; Anicteric, Normal Conjunctiva NECK; supple, normal thyroid, with bilateral rhonchi CARDIOVASCULAR: Irregularly irregular, systolic murmur GI: soft, normoactive bowel sounds, : No Renal angle tenderness; EXTREMITIES: edema, no clubbing, MUSCULOSKELETAL: no muscle wasting NEURO: Awake; no lateralizing signs. SKIN: No Rash PSYCH; Flat affect Assessment & Plan Assessment/Plan (1) Acute on chronic heart failure with preserved ejection fraction (HFpEF): (2) COPD exacerbation: (3) Pneumonia: PLAN: Plan Patient is an 84-year-old lady with underlying history of COPD who presented with progressive shortness of breath cough and sore throat. An assessment of acute on chronic hypoxic respiratory failure secondary to COPD exacerbation and left-sided pneumonia made placed on noninvasive ventilation BiPAP admitted to the intensive care unit for further management 1. Acute on chronic hypoxic and hypercapnic respiratory failure ? Secondary to combination of pneumonia and COPD exacerbation. Patient was placed on noninvasive isolation admitted to the intensive care unit with treatment of the underlying clinical issues ? 01/17/2024; patient has been weaned off BiPAP currently on nasal cannula ? 01/18/2024; pulmonology is recommending nocturnal PPV on discharge. ? 01/19/2024; patient back to baseline regarding her oxygen requirement. Currently on 4 L at rest 2. COPD with acute exacerbation ? Patient started on bronchodilator treatment, systemic steroid as well as antibiotic therapy. Patient placed on oxygen titrated to keep saturation greater than 90. ? 01/19/2024 significantly improved 3. Pneumonia - Suspected to be secondary to with suspected multidrug-resistant organisms, Blood and sputum cultures sent. Patient placed on Rocephin and Zithromax and placed on oxygen titrated to keep Pulse Ox greater than 90 4. Paroxysmal A-fib with RVR ? Patient was started on Cardizem drip titrated to keep heart rate less than 100 patient is already on systemic anticoagulation with apixaban continued ? 01/17/2024; plan is for patient to be weaned off Cardizem 01/18/2024;Patient was found to have intermittent A-fib with aberrancy. Case was discussed with cardiology Dr. Monroe patient was started on amiodarone 5. Acute on chronic congestive heart failure served ejection fraction Echo obtained on 12/26/2023 demonstrated EF of 65% Mild global right ventricular systolic dysfunction.There is severe biatrial dilatation. Moderate mitral annular calcification. Aortic sclerosis, no stenosis.. Patient was started on Lasix, fluid restriction, daily weight and strict input and output. Response to therapy being monitored with above parameters ? 01/17/2024 patient is in a negative fluid balance of 760 mL ? 01/18/2024; did decrease Lasix dose given worsening kidney function ? 01/19/2024; patient had runs of nonsustained VT 6. Valvular heart disease ? Patient was noted to have severe tricuspid valve insufficiency on the echo obtained on 01/05/2024 patient to follow-up with cardiology 7. Severe pulmonary hypertension ? Complicating care echo from 12/26/2023 demonstrated .Severe pulmonary hypertension. Pulmonary artery systolic pressure estimated at 60 mmHg. 8. Hypertension -blood pressure controlled, home medications continued with dose adjustment as needed 9. Hypothyroidism -patient is on levothyroxine home dose continued 10 . Diabetes mellitus type 2 with complications including diabetic nephropathy - Patient is on oral agent held on admission placed on scheduled insulin with Accu-Cheks before meals and at bedtime with sliding scale coverage ? 01/18/2024; patient blood glucose levels markedly elevated due to concomitant use of steroid adjusted patient insulin regimen 11. Morbid obesity -with BMI of 41.7 lifestyle modification including weight loss advised 12. History of right breast CA -status post mastectomy with subsequent neoadjuvant chemotherapy patient was managed on tamoxifen for 5 years 13. Chronic hypoxic respiratory failure ? Patient is on home oxygen 5 L baseline 14. DVT prophylaxis -patient is on Eliquis 15. Anemia ? Secondary to chronic disorder monitoring H&H and transfuse if patient becomes symptomatic or hemoglobin falls below 7 16. Chronic kidney disease stage III ? Baseline creatinine 1.36 patient kidney function did worsen with diuresis Lasix dose subsequently adjusted repeat BMP ordered in July Time spent in the patient's overall evaluation,decision-making process, review of diagnostic data, adjustment of management, discussion with other providers, nursing nursing and ancillary staff involved in patient's care documentation,38 Minutes
[2024-01-20] MEDS: Insulin Lispro 100 UNIT/ML INSULN.PEN SC ×2 (08:13→12:04)
[2024-01-20] MEDS: Insulin Glargine-YFGN 100 UNIT/ML Pen 25 UNIT SC (08:14)
[2024-01-20] MEDS: predniSONE 20 MG Tablet 40 MG PO (08:15)
[2024-01-20] MEDS: Spironolactone 25 MG Tablet PO (08:15)
[2024-01-20] MEDS: Potassium Chloride Oral Tablet 20 MEQ PO (08:15)
[2024-01-20] MEDS: dilTIAZem CD 120 MG Capsule PO (08:16)
[2024-01-20] MEDS: Iron Polysaccharide Complex 150 MG CAPSULE PO (08:16)
[2024-01-20] MEDS: APIXABAN 2.5 MG TABLET (WCH) PO (08:16)
[2024-01-20] MEDS: SACUBITRIL/VALSARTAN 49-51 MG TABLET 1 EACH PO (08:16)
[2024-01-20] MEDS: Furosemide 40 MG Tablet PO (08:17)
[2024-01-20] MEDS: guaiFENesin 1,200 MG Tablet 1200 MG PO (08:17)
[2024-01-20] MEDS: Cholecalciferol (VIT D3) 25 MCG TABLET (1,000 UNITS) PO (08:17)
[2024-01-20] MEDS: Metoprolol Tartrate 100 MG Tablet PO (08:17)
[2024-01-20] MEDS: Azithromycin 250 MG Tablet 500 MG PO (08:18)
[2024-01-20 08:41] LABS: Bedside Glucose 166 mg/dL (74-106)
--- NOTE | 2024-01-20 09:53 | DS.PCM_ITS ---
Providers Date of Admission: 01/15/24 Date of Discharge: 01/20/24 Primary Care Physician: Dr. Alexy Douglas MD Consultations 01/16/24 01:52 Consult: Cardiology Routine Consulting Provider: Raul Busby Reason for Consult: afib rvr, cardizem gtts EMERGENT Consult: No Notified: Yes Date Notified: 01/16/24 Time Notified: 01:53 Method of Notification: Text Consult: Machine Stonecutter / Pulmonary Medicine Routine Consulting Provider: Intensivists/Pulmonary Med Reason for Consult: chronic respiratory failure EMERGENT Consult: No Notified: Yes Date Notified: 01/16/24 Time Notified: 01:52 Method of Notification: Text Reason For Visit: AFIB RVR PNEUMONIA CHRONIC RESPIRATORY FAILURE Diagnosis Discharge Diagnosis (1) Acute on chronic heart failure with preserved ejection fraction (HFpEF): Status: Acute Code(s): I50.33 - Acute on chronic diastolic (congestive) heart failure (2) COPD exacerbation: Status: Chronic Code(s): J44.1 - Chronic obstructive pulmonary disease with (acute) exacerbation (3) Pneumonia: Status: Acute Code(s): J18.9 - Pneumonia, unspecified organism Plan Patient is an 84-year-old lady with underlying history of COPD who presented with progressive shortness of breath cough and sore throat. An assessment of acute on chronic hypoxic respiratory failure secondary to COPD exacerbation and left-sided pneumonia made placed on noninvasive ventilation BiPAP admitted to the intensive care unit for further management 1. Acute on chronic hypoxic and hypercapnic respiratory failure ? Secondary to combination of pneumonia and COPD exacerbation. Patient was placed on noninvasive isolation admitted to the intensive care unit with treatment of the underlying clinical issues ? 01/17/2024; patient has been weaned off BiPAP currently on nasal cannula ? 01/18/2024; pulmonology is recommending nocturnal PPV on discharge. ? 01/19/2024; patient back to baseline regarding her oxygen requirement. Currently on 4 L at rest 2. COPD with acute exacerbation ? Patient started on bronchodilator treatment, systemic steroid as well as antibiotic therapy. Patient placed on oxygen titrated to keep saturation greater than 90. ? 01/19/2024 significantly improved 3. Pneumonia - Suspected to be secondary to with suspected multidrug-resistant organisms, Blood and sputum cultures sent. Patient placed on Rocephin and Zithromax and placed on oxygen titrated to keep Pulse Ox greater than 90 4. Paroxysmal A-fib with RVR ? Patient was started on Cardizem drip titrated to keep heart rate less than 100 patient is already on systemic anticoagulation with apixaban continued ? 01/17/2024; plan is for patient to be weaned off Cardizem 01/18/2024;Patient was found to have intermittent A-fib with aberrancy. Case was discussed with cardiology Dr. Monroe patient was started on amiodarone 5. Acute on chronic congestive heart failure served ejection fraction Echo obtained on 12/26/2023 demonstrated EF of 65% Mild global right ventricular systolic dysfunction.There is severe biatrial dilatation. Moderate mitral annular calcification. Aortic sclerosis, no stenosis.. Patient was started on Lasix, fluid restriction, daily weight and strict input and output. Response to therapy being monitored with above parameters ? 01/17/2024 patient is in a negative fluid balance of 760 mL ? 01/18/2024; did decrease Lasix dose given worsening kidney function ? 01/19/2024; patient had runs of nonsustained VT. ? 01/20/2024 further reviewed with with cardiology most likely A-fib with aberrancy, patient was discharged with a 30-day event monitor with plans for patient to follow-up with cardiology as 6. Valvular heart disease ? Patient was noted to have severe tricuspid valve insufficiency on the echo obtained on 01/05/2024 patient to follow-up with cardiology 7. Severe pulmonary hypertension ? Complicating care echo from 12/26/2023 demonstrated .Severe pulmonary hypertension. Pulmonary artery systolic pressure estimated at 60 mmHg. 8. Hypertension -blood pressure controlled, home medications continued with dose adjustment as needed 9. Hypothyroidism -patient is on levothyroxine home dose continued 10 . Diabetes mellitus type 2 with complications including diabetic nephropathy - Patient is on oral agent held on admission placed on scheduled insulin with Accu-Cheks before meals and at bedtime with sliding scale coverage ? 01/18/2024; patient blood glucose levels markedly elevated due to concomitant use of steroid adjusted patient insulin regimen 11. Morbid obesity -with BMI of 41.7 lifestyle modification including weight loss advised 12. History of right breast CA -status post mastectomy with subsequent neoadjuvant chemotherapy patient was managed on tamoxifen for 5 years 13. Chronic hypoxic respiratory failure ? Patient is on home oxygen 5 L baseline 14. DVT prophylaxis -patient is on Eliquis 15. Anemia ? Secondary to chronic disorder monitoring H&H and transfuse if patient becomes symptomatic or hemoglobin falls below 7 16. Chronic kidney disease stage III ? Baseline creatinine 1.36 patient kidney function did worsen with diuresis Lasix dose subsequently adjusted repeat BMP ordered in July Time spent in the patient's overall evaluation,decision-making process, review of diagnostic data, adjustment of management, discussion with other providers, nursing nursing and ancillary staff involved in patient's care documentation,38 Minutes Medications at Discharge Home Medications diltiazem HCl 240 mg capsule,extended release 24 hr 240 mg PO DAILY heart #90 caps 04/26/23 levothyroxine 50 mcg tablet 50 mcg PO DAILY@0600 #0 tabs 08/02/23 polysaccharide iron complex 150 mg iron capsule (Ferrex) 150 mg PO DAILY 30 days #30 caps 08/02/23 apixaban 2.5 mg tablet (Eliquis) 2.5 mg PO DAILY blood thinner 08/20/23 sacubitril 49 mg-valsartan 51 mg tablet (Entresto) 1 tab PO BID 10/21/23 levothyroxine 200 mcg tablet 200 mcg PO DAILY 12/02/23 rosuvastatin 40 mg tablet 40 mg PO QHS 12/02/23 insulin degludec 100 unit/mL (3 mL) subcutaneous pen (Tresiba FlexTouch U-100 insulin) 30 unit subcut DAILY diabetes 12/26/23 amiodarone 200 mg tablet 200 mg PO BID 30 days #60 tabs 01/20/24 cefdinir 300 mg capsule 300 mg PO BID #6 caps 01/20/24 furosemide 40 mg tablet 40 mg PO BIDLX #60 tabs 01/20/24 guaifenesin 1,200 mg tablet, extended release 12 hr (Mucus Relief ER) 1,200 mg PO BID #20 tabs 01/20/24 prednisone 20 mg tablet 40 mg (2 x 20 mg) PO BREAKFAST #10 tabs 01/20/24 spironolactone 25 mg tablet 25 mg PO DAILY #30 tabs 01/20/24 Physical Exam Narrative GENERAL: cooperative HEENT: Atraumatic; normocephalic EYES; Anicteric, Normal Conjunctiva NECK; supple, normal thyroid, CARDIOVASCULAR: Irregularly irregular, systolic murmur GI: soft, normoactive bowel sounds, : No Renal angle tenderness; EXTREMITIES: edema, no clubbing, MUSCULOSKELETAL: no muscle wasting NEURO: Awake; no lateralizing signs. SKIN: No Rash PSYCH; Flat affect Weight / BMI Weight Weight: 121.3 kg Body Mass Index (BMI) 41.9 ABG / Lab / Microbiology Data 01/19/24 05:40 01/19/24 05:40 Laboratory: Laboratory Results - last 24 hr 01/19/24 11:22: POC Glucose 171 H 01/19/24 16:29: POC Glucose 347 H 01/19/24 21:04: POC Glucose 362 H 01/20/24 08:05: POC Glucose 166 H Microbiology: Microbiology 01/17/24 22:40 Sputum, Expectorated/Coughed Gram Stain - Final 01/17/24 22:40 Sputum, Expectorated/Coughed Respiratory Culture - Final 01/15/24 18:00 Blood Culture (Wb) - Anticubital Left Blood Culture - Preliminary No growth in 5 days. 01/15/24 19:45 Urine, Catheterized Urine Culture - Final Culture exhibits no growth. 01/16/24 19:45 Urine Catheter - Sidhu Legionella Antigen - Final 01/16/24 19:45 Urine Catheter - Sidhu Streptococcus pneumoniae Antigen (M - Final 01/15/24 18:15 Mucosa - Nose SARS-CoV-2, Influenza & RSV (PCR) - Final D/C Instructions Discharge Diet: 1800 Calorie Control Diet, 8 Cup Fluid Restriction and 2000 mg Sodium Diet Discharge Activity: Return to Normal Activity Call your doctor if you observe: Fever of 101 or Higher, Shortness of breath, Fainting spells and Chest pain Meaningful Use Info Meaningful Use Meaningful Use Diagnoses (Choose all that apply): CHF CHF JIMI/ARB ordered at discharge?: Yes Documented LVEF (%): 65 Ischemic Stroke Statin Dosing Therapy Reference: STATIN DOSE THERAPY REFERENCE: * Patients > 75 years receive moderate or high dose statin therapy. * Patients 75 years or YOUNGER should receive HIGH intensity statin dose unless contraindicated. You will be required to document reason for non-treatment if statin daily dose does not meet guidelines. HIGH DOSE STATIN THERAPY DAILY Atorvastatin > than or = to 40 mg Rosuvastatin > than or = to 20 mg Amlodipine + Atorvastatin > than or = to 2.5/40 mg Ezetimibe + Simvastatin 10/80 mg Simvastatin 80mg Discharge Plan Admission Admit Date/Time: 01/15/24 23:05 Attending Provider: Martin Davies Primary Care Provider: Alexy Douglas Chi Consulting Providers: Raul Busby Discharge Orders/Prescriptions Prescriptions: New amiodarone 200 mg Tablet 200 mg PO BID 30 Days Qty: 60 0RF prednisone 20 mg Tablet 40 mg PO BREAKFAST Qty: 10 0RF guaifenesin [Mucus Relief ER] 1,200 mg Tablet Extended Release 12hr 1,200 mg PO BID Qty: 20 0RF furosemide 40 mg Tablet 40 mg PO BIDLX Qty: 60 0RF spironolactone 25 mg Tablet 25 mg PO DAILY Qty: 30 0RF Continued diltiazem HCl 240 mg capsule,extended release 24hr 240 mg PO DAILY Qty: 90 3RF Entresto 49-51 mg tablet 1 tab PO BID levothyroxine 200 mcg tablet 200 mcg PO DAILY rosuvastatin 40 mg tablet 40 mg PO QHS cefdinir 300 mg capsule 300 mg PO BID Qty: 6 0RF polysaccharide iron complex [Ferrex 150] 150 mg iron Capsule 150 mg PO DAILY 30 Days Qty: 30 0RF levothyroxine 50 mcg Tablet 50 mcg PO DAILY@0600 Qty: 0 0RF Eliquis 2.5 mg tablet 2.5 mg PO DAILY insulin degludec [Tresiba FlexTouch U-100] 100 unit/mL (3 mL) insulin pen 30 unit subcut DAILY Discontinued glimepiride 1 mg tablet 1 mg PO QDAY Other Ambulatory Orders: 30 Day Event Recorder Preventi (Urgent) Timeframe: 1 Day Facility: [facility] - Location: Cardiovascular Services Ordered By: Dr. Martin Davies Referrals / Follow Up: Roosevelt Tesfaye MD [Med Staff - Active Staff] - Within 2 Weeks Alexy Douglas Chi, MD [Primary Care Provider] - Within 1 Week Disposition Disposition (needs filled in before D/C Order can be placed): Home Health Service Charges/Coding Visit Charges Inpatient E&M: 29925 Disch Hosp >30min
[2024-01-20] MEDS: Amiodarone 200 MG Tablet PO (10:16)
--- NOTE | 2024-01-20 11:00 | CASEMGMT ---
Patient has order for discharge. FLETCHER UGARTE called [facility] and updated regarding discharge, resumption of care planned for tomorrow. FLETCHER UGARTE in to discuss discharge needs with patient. Patient states she has oxygen tank for at discharge. Patient did not require increase in home oxygen. FLETCHER UGARTE updated patient regarding resumption of care with [facility]. Patient denied further needs or help at discharge. Patient had no further questions or concerns.
[2024-01-20 12:24] LABS: Bedside Glucose 192 mg/dL (74-106)
== END 2024-01-20 13:00 | disposition home health service (06) | DRG 193 ==
LOC: ED 21:37 → ICU 23:36 → PCU 01-17 14:04
PROVIDERS: Internal Medicine Cardiovascular Disease; Admitting Provider Internal Medicine; Emergency Provider Emergency Medicine; PCP Family Medicine Geriatric Medicine; Visit Provider Internal Medicine
DX: J18.9 Pneumonia, unspecified organism (principal); J96.21 Acute and chronic respiratory failure with hypoxia; J96.22 Acute and chronic respiratory failure with hypercapnia; I50.33 Acute on chronic diastolic (congestive) heart failure; J44.1 Chronic obstructive pulmonary disease with (acute) exacerbation; Z68.41 Body mass index [BMI] 40.0-44.9, adult; I13.0 Hypertensive heart and chronic kidney disease with heart failure and stage 1 through stage 4 chronic kidney disease, or unspecified chronic kidney disease; I47.29 Other ventricular tachycardia; I48.20 Chronic atrial fibrillation, unspecified; I27.20 Pulmonary hypertension, unspecified; N18.32 Chronic kidney disease, stage 3b; E11.22 Type 2 diabetes mellitus with diabetic chronic kidney disease; E03.9 Hypothyroidism, unspecified; I70.0 Atherosclerosis of aorta; I07.1 Rheumatic tricuspid insufficiency; I50.82 Biventricular heart failure; E66.01 Morbid (severe) obesity due to excess calories; E78.00 Pure hypercholesterolemia, unspecified; I45.10 Unspecified right bundle-branch block; Z79.4 Long term (current) use of insulin; G47.33 Obstructive sleep apnea (adult) (pediatric); I34.81 Nonrheumatic mitral (valve) annulus calcification; J44.89 Other specified chronic obstructive pulmonary disease; Z51.5 Encounter for palliative care; Z90.710 Acquired absence of both cervix and uterus; Z11.52 Encounter for screening for COVID-19; Z79.2 Long term (current) use of antibiotics; Z87.891 Personal history of nicotine dependence; Z79.84 Long term (current) use of oral hypoglycemic drugs; Z79.01 Long term (current) use of anticoagulants; Z66 Do not resuscitate; Z79.890 Hormone replacement therapy
CPT/HCPCS: 36415; 36600; 71045; 80048; 80061; 81001; 82803; 82962; 83605; 83735; 83880; 84100; 84145; 84439; 84443; 84484; 85025; 85610; 85730; 87040; 87070; 87086; 87205; 87449; 87631; 93005; 94002; 94003; 94640; 94760; 94762; 97110; 97162; 97166; 97530; 97535; 99285; A4216; J1940

== ENCOUNTER → 2024-01-27 | Outpatient (CLI) | payer MEDICARE, OTHER, SELFPAY ==
[2024-01-27 14:27] LABS: Absolute Lymphocyte Count 0.91 X10^3/uL (0.83-4.51); Absolute Neutrophil Count 14.8 X10^3/uL (2.0-7.7); Basophil# 0.04 X10^3/uL; Basophil% 0.2 % (0-1); Eosinophil# 0.14 X10^3/uL; Eosinophils% 0.8 % (0-5); Hematocrit 34.3 % (37-47); Hemoglobin 10.3 g/dL (12.0-15.0); Lymphocyte # 0.91 X10^3/ul (0.83-4.51); Lymphocyte % 5.4 % (19-41); Mean Corpuscular Hgb 27.1 pg (27.0-32.0); Mean Corpuscular Volume 90.3 fL (81-99); Monocyte# 0.89 X10^3/uL; Monocyte% 5.2 % (0-10); NRBC Flagged by Analyzer 0 % (0-5); Neutrophil # 14.75 X10^3/uL (2.7-7.7); Neutrophil % 86.8 % (47-70); Platelet Count 244 K/mm3 (150-450); RBC Distribution Width CV 16.6 % (11.6-14.6); RBC Distribution Width SD 54.4 fl (35.1-43.9)
[2024-01-27 15:05] LABS: Vitamin D,25 Hydroxy 30.2 ng/mL
[2024-01-27 15:14] LABS: ALB/GLOB Ratio 0.9 RATIO (0.9-2.4); AST(SGOT) 11 U/L (15-37); Alanine Aminotransfer ALT/SGPT 25 U/L (13-56); Albumin, Serum 2.9 g/dL (3.2-5.0); Alkaline Phosphatase 67 U/L (45-117); Anion Gap 4 (5-15); BUN 32 mg/dL (7-18); BUN/Creat Ratio 17.9 RATIO (10-20); Calcium,Total 8.9 mg/dL (8.5-10.1); Chloride 101 mmol/L (98-107); Creatinine, Serum 1.79 mg/dL (0.55-1.02); EST Glomerular Filtration Rate 29 mL/min (>60); Est Glom Filt Rate - Afr Amer 35 mL/min (>60); Globulin 3.1 g/dL (2.2-4.2); Glucose 301 mg/dL (74-106); Potassium 4.3 mmol/L (3.5-5.1); Sodium Level 140 mmol/L (136-145)
== END | disposition home or self-care (01) ==
LOC: POLAB3 14:04
PROVIDERS: PCP Family Medicine Geriatric Medicine; Visit Provider Family Medicine Geriatric Medicine
DX: E11.65 Type 2 diabetes mellitus with hyperglycemia (principal); I10 Essential (primary) hypertension; E55.9 Vitamin D deficiency, unspecified
CPT/HCPCS: 36415; 80053; 82306; 84443; 85025

== ENCOUNTER 2024-03-16 10:05 | Inpatient (IN) | payer MEDICARE, OTHER, SELFPAY ==
[2024-03-16] VITALS (14 sets, daily range): BP systolic 129–177; BP diastolic 74–97; PULSE 27–108; RESP 12–39; TEMP 36.6–37.1; O2SAT 90–98; BMI 42.8; BMI 41.1
--- NOTE | 2024-03-16 10:10 | EKG12_ITS ---
Test Reason : SOB Blood Pressure : */* mmHG Vent. Rate : 102 BPM Atrial Rate : * BPM P-R Int : * ms QRS Dur : 140 ms QT Int : 398 ms P-R-T Axes : * 130 -6 degrees QTcB Int : 518 ms Atrial fibrillation with rapid ventricular response Right bundle branch block Abnormal ECG Confirmed by KATIE SELF, ISAÍAS ([id number]), subeditor CHARITY NETTLES ([id number]) on 03/17/2024 7:57:51 AM Referred By: Confirmed By: ISAÍAS WILSON MD
--- NOTE | 2024-03-16 10:14 | ED.VIS.DYS ---
HPI History of Present Illness Chief Complaint: Shortness of Breath Informant: patient and EMS Narrative Narrative: 84-year-old female history of CHF COPD and atrial fibrillation presenting to the emergency room via EMS with a chief complaint of dyspnea. The patient states that yesterday she developed shortness of breath. Progressively worsened until she called the squad today. They found her in the mid 80s on room air. They administered a DuoNeb and placed her on CPAP which was helping her. She states that she does wear oxygen at night and during the day when I want to. She notes that she is on Eliquis for longstanding atrial fibrillation. No reported fevers. She does note a slight cough but nonproductive. Chronic swelling of her lower extremities which she states are not different than normal. Patient notes that today's weight here in the emergency department is about 9 pounds or so heavier than what she typically weighs. [facility] Medical History CHF exacerbation Congestive heart failure (CHF) IDDM (insulin dependent diabetes mellitus) Diabetes Rheumatoid arthritis On home oxygen therapy Low iron Insulin dependent diabetes mellitus Wears glasses Wears dentures Cancer History of steroid therapy History of renal disease High cholesterol Restless legs Injury of back Back pain Dietary restriction Shortness of breath on exertion History of pain when walking History of edema History of echocardiogram History of stress test Cardiology follow-up encounter History of CHF (congestive heart failure) History of atrial fibrillation Hyperlipidemia Overactive bladder Hypothyroidism Diabetes mellitus Hypertension Chronic kidney disease, stage 3b Former smoker Atrial fibrillation Hypertension Chronic anticoagulation Skin cancer, basal cell Actinic keratosis Skin lesion Skin cancer Chronic diastolic (congestive) heart failure Longstanding persistent atrial fibrillation Diastolic dysfunction Secondary pulmonary arterial hypertension Non-rheumatic tricuspid valve insufficiency Stage 2 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 Right hip pain Disc degeneration, lumbar Fatigue UTI (urinary tract infection) Hypoxia Hypersomnia COPD (chronic obstructive pulmonary disease) Obesity Tobacco dependence in remission CKD (chronic kidney disease) stage 3, GFR 30-59 ml/min Breast cancer Essential (primary) hypertension BMI 39.0-39.9,adult Erosion of bladder suspension mesh SHAKIRA (stress urinary incontinence, female) Home Medications ?Medication ?Instructions ?Recorded ?Last Taken ?Type diltiazem HCl 240 mg 240 mg PO DAILY heart #90 caps 04/26/23 03/15/24 Rx capsule,extended release 24 hr apixaban 2.5 mg tablet (Eliquis) 2.5 mg PO DAILY blood thinner 08/20/23 03/15/24 History sacubitril 49 mg-valsartan 51 mg 1 tab PO BID heart 10/21/23 03/15/24 History tablet (Entresto) levothyroxine 200 mcg tablet 200 mcg PO DAILY thyroid 12/02/23 03/15/24 History rosuvastatin 40 mg tablet 40 mg PO QHS cholesterol 12/02/23 03/15/24 History insulin degludec 100 unit/mL (3 20 unit subcut BID diabetes 12/26/23 03/15/24 History mL) subcutaneous pen (Tresiba FlexTouch U-100 insulin) cholecalciferol (vitamin D3) 25 25 mcg PO DAILY supplement 01/20/24 03/15/24 History mcg (1,000 unit) capsule (Vitamin D3) furosemide 40 mg tablet 40 mg PO BIDLX #60 tabs 01/20/24 03/15/24 Rx glimepiride 1 mg tablet 1 mg PO DAILY 03/16/24 03/15/24 History metoprolol succinate 25 mg 25 mg PO QHS 03/16/24 03/15/24 History tablet,extended release 24 hr Allergy/AdvReac Type Severity Reaction Status Date / Time Sulfa (Sulfonamide Allergy PEELING Verified 03/16/24 10:10 Antibiotics) RASH Family History Mother Colon cancer Cancer skin, bladder Daughter Cancer Thyroid Sister CAD (coronary artery disease) Surgical History History of surgery Hx of colonoscopy Hx of right cataract extraction Hx of left cataract extraction History of excision of lesion Hx of local excision of skin lesion History of hysterectomy History of partial mastectomy History of cardioversion (03/20/19) History of left heart catheterization (05/31/14) Social History household members: none housing: house current occupational status: retired Smoking Status: Former smoker how long ago did patient quit smokin, 2p/day second hand exposure: Yes alcohol intake: current alcohol intake frequency: holidays/special occasions only substance use type: does not use ROS ROS ED Constitutional Constitutional ED: Denies chills, fever(s) or weight loss Eyes Eyes: Denies change in vision or diplopia ENT ENT ED: Denies ear pain, rhinorrhea or sore throat Cardiovascular Cardiovascular: Denies chest pain, orthopnea, palpitations or racing heartbeat Respiratory/Chest Respiratory/Chest: Reports cough, dyspnea and dyspnea on exertion; Denies orthopnea Gastrointestinal Gastrointestinal: Denies abdominal pain, diarrhea, nausea or vomiting Genitourinary Genitourinary ED: Denies dysuria, hematuria or urinary frequency Musculoskeletal Musculoskeletal: Denies arthralgias or myalgias Integumentary Denies abscess or rash Neurologic Neurologic: Denies headache(s) or weakness Psychiatric Psychiatric: Denies anxiety, depression, suicidal ideation or suicidal thoughts Endocrine Endocrinology: Denies polydipsia, polyphagia or polyuria Allergic/Immunologic Allergic/Immunologic ED: Denies mouth swelling, tongue swelling or urticaria EXAM Physical Exam Const Vital Signs: 03/16/24 10:06 03/16/24 10:11 03/16/24 10:11 Temperature 98.4 F 98.8 F Temperature Source Oral Oral Pulse Rate 92 97 Respiratory Rate 32 H 36 H Respiratory Effort Short of Breath Labored Respiratory Depth Shallow Respiratory Pattern Tachypnea Blood Pressure 145/74 H 145/74 H Blood Pressure Mean 97 97 Pulse Ox 90 90 Oxygen Delivery Method Nasal Cannula Nasal Cannula Nasal Cannula Oxygen Flow Rate (L/min) 4 4 Fraction of Inspired Oxygen (FIO2) 03/16/24 10:20 03/16/24 10:20 03/16/24 11:15 Temperature Temperature Source Pulse Rate 102 H 87 Respiratory Rate 38 H 24 H Respiratory Effort Respiratory Depth Respiratory Pattern Normal Blood Pressure 145/76 H Blood Pressure Mean 99 Pulse Ox 97 97 97 Oxygen Delivery Method Bi-pap Bi-pap Oxygen Flow Rate (L/min) 4 Fraction of Inspired Oxygen (FIO2) 40 03/16/24 12:31 03/16/24 13:00 Temperature Temperature Source Pulse Rate 98 93 Respiratory Rate 33 H 20 H Respiratory Effort Respiratory Depth Respiratory Pattern Blood Pressure 160/88 H 177/80 H Blood Pressure Mean 112 112 Pulse Ox 94 94 Oxygen Delivery Method Nasal Cannula Room Air Oxygen Flow Rate (L/min) 4 4 Fraction of Inspired Oxygen (FIO2) Positive well nourished, well developed and obese Constitutional Narrative: Moderate amount of respiratory distress General Appearance ED: well developed Nutritional Appearance: obese HEENT Reports normocephalic, head/scalp atraumatic and moist mucous membranes Eyes PERRL and EOMs intact bilaterally Neck no lymphadenopathy, supple and no JVD Resp Resp Narrative: Patient is tachypneic Auscultation: rales bilateral base Cardio no murmurs Rate: tachycardic Rhythm: abnormal rhythm irregularly irregular GI normal to inspection, nondistended, normoactive bowel sounds and non-tender Palpation: soft Back/Spine no CVA tenderness and normal ROM Extremity General Extremety ED: Yes edema General Extremity: edema bilateral lower extremity Details: moderate Neuro oriented x3 and CN's II-XII intact bilaterally Sensorium / Orientation: alert Motor Exam: strength 5/5 throughout Psych mental status grossly normal Mood & Affect: Negative for depressed or tearful Skin no rashes or lesions noted and no wounds MDM MDM MDM Narrative Medical decision making narrative: Differential diagnosis includes but not limited to COPD exacerbation congestive heart failure pneumonia pulmonary embolism cardiac dysrhythmia anemia electrolyte abnormalities acute coronary syndrome Patient was placed on BiPAP. ABG shows a pH 7.417 pCO2 44.4 PaO2 71.9 HCO3 28.6. My independent interpretation of the chest x-ray is bilateral pleural effusions with atelectatic changes. White count normal 10.6 hemoglobin 10.6 platelet count is 278 INR 1.1 PTT 28.8. Creatinine 1.48 normal sodium and potassium. Troponin is normal at 16. BNP 350.3. EKG is A-fib with RVR at a rate of 102 bpm with right bundle branch block. CTA of the chest was obtained to obtain to better imaging of the lungs as a chest x-ray is limited with rotation and body habitus and for the evaluation of pulmonary embolism. This was read by radiology reviewed by myself. No obvious pulmonary embolism was noted. There are bilateral pleural effusions with compressive atelectatic changes. We did trial the patient off BiPAP but she has still has significant dyspnea particularly with conversation and any movement. She is placed back on BiPAP given Lasix. Plan will be for admission. History & Record Review Discussion w/independent historian: Patient Lab Data Attestation: I reviewed the patient's lab results. Labs: Laboratory Results - last 24 hr 03/16/24 10:15 WBC 10.6 RBC 3.83 L Hgb 10.6 L Hct 35.4 L MCV 92.4 MCH 27.7 MCHC 29.9 L RDW Std Deviation 53.6 H RDW Coeff of Sudha 15.7 H Plt Count 278 MPV 10.1 Immature Gran % (Auto) 0.900 Neut % (Auto) 84.6 H Lymph % (Auto) 6.0 L O[place] % (Auto) 6.7 Eos % (Auto) 1.3 Baso % (Auto) 0.5 Absolute Neuts (auto) 9.0 H Absolute Lymphs (auto) 0.64 L Nucleated RBC % 0 PT 13.8 INR 1.1 APTT 28.8 Sodium 139 Potassium 4.0 Chloride 105 Carbon Dioxide 33.0 H Anion Gap 2 L BUN 23 H Creatinine 1.48 H Estim Creat Clear Calc 38.01 Est GFR (MDRD) Af Amer 43 L Est GFR (MDRD) Non-Af 36 L BUN/Creatinine Ratio 15.5 Glucose 211 H Calcium 8.8 Total Bilirubin 0.40 Direct Bilirubin 0.16 AST 8 L ALT 16 Alkaline Phosphatase 109 Troponin I High Sens 16 B-Natriuretic Peptide 350.3 H Total Protein 6.7 Albumin 2.8 L Globulin 3.9 ABG Data ABG results: ABG 03/16/24 10:33 Specimen Type ART Sample Site R Brach pH 7.42 Bicarbonate Actual 28.6 H Total CO2 30 Base Excess 4 H O2 Saturation 94 L O2 % 40.0 ABG pCO2 44.4 ABG pO2 72 L Respiration Rate 16 O2 Delivery Device BiPAP Vent Mode AC Clinical Comments 02/22 Radiography Diagnostic Testing: Clinical Impression(s) from Imaging Studies Chest X-Ray 03/16/24 10:30 IMPRESSION: 1. Persistent opacification of the right middle and lower lobes of lungs which may represent pneumonia and/or atelectasis. 2. Small bilateral pleural effusions. Left pleural effusion appears loculated. Electronically Signed: Emanuel eMlo MD at 11:16 EST , Chest CTA 03/16/24 11:21 IMPRESSION: 1. Bilateral pleural effusions with compression atelectasis of the lower lobes. 2. Mild cardiomegaly. 3. No evidence of acute pulmonary embolism. Electronically Signed: Emanuel Melo MD at 13:28 EST , EKG Initial EKG: Attestation: I personally reviewed and interpreted this EKG as follows: Comments: Sinus tachycardia with right bundle branch block. Management Discussion w/another healthcare provider: Hospitalist (Dr Campbell) Critical Care Time Critical Care Time: Yes Critical care time (excluding procedures): 30-74 minutes (35 min), Including time spent:, Discussing w/Patient &/or Family/Veterinary Technician Assistant, Discussing w/Consultants, Arranging Admission or Transfer and Performing Direct Patient Care at Bedside Discharge Plan Dx/Rx/DC Orders Clinical Impression: Acute hypoxemic respiratory failure, Acute HFrEF (heart failure with reduced ejection fraction), Bilateral pleural effusion, Anticoagulated, Atrial fibrillation with rapid ventricular response Disposition Disposition: Acute Care Hospital [facility]
[2024-03-16 10:30] LABS: Absolute Lymphocyte Count 0.64 X10^3/uL (0.83-4.51); Basophil# 0.05 X10^3/uL; Basophil% 0.5 % (0-1); Eosinophil# 0.14 X10^3/uL; Eosinophils% 1.3 % (0-5); Hematocrit 35.4 % (37-47); Hemoglobin 10.6 g/dL (12.0-15.0); Lymphocyte # 0.64 X10^3/ul (0.83-4.51); Mean Corp Hgb Conc 29.9 g/dL (32-36); Mean Corpuscular Hgb 27.7 pg (27.0-32.0); Mean Corpuscular Volume 92.4 fL (81-99); Mean Platelet Vol. 10.1 fl (6.2-12.0); Monocyte# 0.71 X10^3/uL; Monocyte% 6.7 % (0-10); NRBC Flagged by Analyzer 0 % (0-5); Neutrophil # 8.95 X10^3/uL (2.7-7.7); Neutrophil % 84.6 % (47-70); Platelet Count 278 K/mm3 (150-450); RBC Distribution Width CV 15.7 % (11.6-14.6); RBC Distribution Width SD 53.6 fl (35.1-43.9); Red Blood Count 3.83 M/mm3 (4.2-5.4); White Blood Count 10.6 K/mm3 (4.4-11.0)
--- NOTE | 2024-03-16 10:30 | RAD_ITS ---
EXAM: XR CHEST, 1 VIEW CLINICAL INDICATION: dyspnea TECHNIQUE: Frontal view of the chest. COMPARISON: XR Chest dated 01/15/2020 07/06/2023 FINDINGS: LUNGS AND PLEURAL SPACES: Persistent opacification of the right middle and lower lobes of lungs which may represent pneumonia and/or atelectasis. Small bilateral pleural effusions. Left pleural effusion appears loculated. HEART: Stable mild cardiomegaly. MEDIASTINUM: No mediastinal or hilar mass. BONES/JOINTS: No acute abnormality. RAD/Chest 1 View (Portable) IMPRESSION: 1. Persistent opacification of the right middle and lower lobes of lungs which may represent pneumonia and/or atelectasis. 2. Small bilateral pleural effusions. Left pleural effusion appears loculated. Electronically Signed: Emanuel Melo MD at 11:16 EST ,
[2024-03-16 10:38] LABS: Base Excess 4 mmol/L (-2 to +2); Bicarbonate 28.6 mmol/L (22-26); Blood Gas Specimen Type ART; Mode AC; O2 Delivery Device BiPAP; PO2 72 mmHG (75-100); RR 16; SITE R Brach; SO2 94 % (95-99); Total Carbon Dioxide 30 mmol/L; pCO2 44.4 mmHg (35-45); pH 7.42 (7.35-7.45)
[2024-03-16 10:42] LABS: International Normalized Ratio 1.1; Prothrombin Time (Protime)PT. 13.8 SECONDS (11.7-14.9)
[2024-03-16 10:43] LABS: Partial Thromboplast Time 28.8 Seconds (24.1-36.2)
[2024-03-16 10:51] LABS: AST(SGOT) 8 U/L (15-37); Alanine Aminotransfer ALT/SGPT 16 U/L (13-56); Albumin, Serum 2.8 g/dL (3.2-5.0); Alkaline Phosphatase 109 U/L (45-117); Anion Gap 2 (5-15); BUN 23 mg/dL (7-18); BUN/Creat Ratio 15.5 RATIO (10-20); Bilirubin, Direct 0.16 mg/dL (0.00-0.30); Calcium,Total 8.8 mg/dL (8.5-10.1); Chloride 105 mmol/L (98-107); Creatinine, Serum 1.48 mg/dL (0.55-1.02); EST Glomerular Filtration Rate 36 mL/min (>60); Est Glom Filt Rate - Afr Amer 43 mL/min (>60); Estimated Creatinine Clearance 38.01 ml/min; Globulin 3.9 g/dL (2.2-4.2); Glucose 211 mg/dL (74-106); Protein, Total 6.7 g/dL (6.4-8.2); Sodium Level 139 mmol/L (136-145); Troponin-I HS 16 pg/mL (3.0-54.0)
--- NOTE | 2024-03-16 11:21 | CT_ITS ---
EXAM: CT ANGIOGRAPHY CHEST WITHOUT AND WITH INTRAVENOUS CONTRAST CLINICAL INDICATION: pulmonary embolism TECHNIQUE: Helically acquired angiography images were obtained of the chest without and with intravenous contrast. This CT exam was performed using one or more of the following dose reduction techniques: automated exposure control, adjustment of the mA and/or kV according to patient size, and/or use of iterative reconstruction technique. MIP reconstructed images were created and reviewed. CONTRAST: IV 100mL [id number] COMPARISON: No relevant prior studies available. FINDINGS: PULMONARY ARTERIES: Normal. Normal in caliber. No evidence of pulmonary embolism. AORTA: Normal. Normal in caliber. No evidence of dissection. GREAT VESSELS OF AORTIC ARCH: Normal. Normal in caliber. No evidence of dissection. INFERIOR VENA CAVA: Contrast refluxes into distended inferior vena cava and hepatic veins indicative of increased right-sided heart pressure. LUNGS AND PLEURAL SPACES: Bilateral pleural effusions noted greater in size on the right than left. Loculated pleural fluid extends along the major fissure bilaterally. There is compression atelectasis of the lower lobes. No pneumothorax. No mass. HEART: Mild cardiomegaly. MEDIASTINUM: Normal. No mediastinal or hilar adenopathy. Esophagus is unremarkable. No hiatal hernia. BONES/JOINTS: Normal. No suspicious lytic or blastic abnormality. INTRAPERITONEAL SPACE: Minimal ascites noted within the right upper quadrant. CT/CTA Chest W/WO Contrast IMPRESSION: 1. Bilateral pleural effusions with compression atelectasis of the lower lobes. 2. Mild cardiomegaly. 3. No evidence of acute pulmonary embolism. Electronically Signed: Emanuel Melo MD at 13:28 EST ,
[2024-03-16 11:35] LABS: BNP,B-Type NATRIURETIC PEPTIDE 350.3 pg/mL (0-100)
[2024-03-16] MEDS: Furosemide 100 MG/10 ML Vial 60 MG IV (12:31)
--- NOTE | 2024-03-16 14:30 | PCM.HP.STD ---
[facility] - [facility] General Date of Service: 03/16/24 Chief Complaint: Shortness of breath [facility] Narrative TONJA SÁNCHEZ, is a 84 F who presents with shortness of breath. This is an 84-year-old female with a history of heart failure recently admitted in January with pneumonia,COPD exacerbation and CHF exacerbation. Patient was discharged on the . Patient states that she has become more short of breath over the past few days. Also having increased lower extremity edema and also increased weight gain over the past several days. She came in here and had a CAT scan that showed pleural effusions as well as pulmonary vascular congestion. She received 60 mg of IV furosemide. They put the patient on BiPAP but she was taken off temporarily but was not doing well on nasal cannula oxygen and then subsequently placed back on BiPAP. She is feeling better with the BiPAP currently. [facility] Medical History Asthma CHF exacerbation Congestive heart failure (CHF) IDDM (insulin dependent diabetes mellitus) Diabetes Rheumatoid arthritis On home oxygen therapy Low iron Insulin dependent diabetes mellitus Wears glasses Wears dentures Cancer History of steroid therapy History of renal disease High cholesterol Restless legs Injury of back Back pain Dietary restriction Shortness of breath on exertion History of pain when walking History of edema History of echocardiogram History of stress test Cardiology follow-up encounter History of CHF (congestive heart failure) History of atrial fibrillation Hyperlipidemia Overactive bladder Hypothyroidism Diabetes mellitus Hypertension Chronic kidney disease, stage 3b Former smoker Atrial fibrillation Hypertension Chronic anticoagulation Skin cancer, basal cell Actinic keratosis Skin lesion Skin cancer Chronic diastolic (congestive) heart failure Longstanding persistent atrial fibrillation Diastolic dysfunction Secondary pulmonary arterial hypertension Non-rheumatic tricuspid valve insufficiency Stage 2 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 Right hip pain Disc degeneration, lumbar Fatigue UTI (urinary tract infection) Hypoxia Hypersomnia COPD (chronic obstructive pulmonary disease) Obesity Tobacco dependence in remission CKD (chronic kidney disease) stage 3, GFR 30-59 ml/min Breast cancer Essential (primary) hypertension BMI 39.0-39.9,adult Erosion of bladder suspension mesh SHAKIRA (stress urinary incontinence, female) Home Medications ?Medication ?Instructions ?Recorded ?Last Taken ?Type diltiazem HCl 240 mg 240 mg PO DAILY heart #90 caps 04/26/23 03/15/24 Rx capsule,extended release 24 hr apixaban 2.5 mg tablet (Eliquis) 2.5 mg PO DAILY blood thinner 08/20/23 03/15/24 History sacubitril 49 mg-valsartan 51 mg 1 tab PO BID heart 10/21/23 03/15/24 History tablet (Entresto) levothyroxine 200 mcg tablet 200 mcg PO DAILY thyroid 12/02/23 03/15/24 History rosuvastatin 40 mg tablet 40 mg PO QHS cholesterol 12/02/23 03/15/24 History insulin degludec 100 unit/mL (3 20 unit subcut BID diabetes 12/26/23 03/15/24 History mL) subcutaneous pen (Tresiba FlexTouch U-100 insulin) cholecalciferol (vitamin D3) 25 25 mcg PO DAILY supplement 01/20/24 03/15/24 History mcg (1,000 unit) capsule (Vitamin D3) furosemide 40 mg tablet 40 mg PO BIDLX #60 tabs 01/20/24 03/15/24 Rx glimepiride 1 mg tablet 1 mg PO DAILY 03/16/24 03/15/24 History metoprolol succinate 25 mg 25 mg PO QHS 03/16/24 03/15/24 History tablet,extended release 24 hr Allergy/AdvReac Type Severity Reaction Status Date / Time Sulfa (Sulfonamide Allergy PEELING Verified 03/16/24 10:10 Antibiotics) RASH Family History Mother Colon cancer Cancer skin, bladder Daughter Cancer Thyroid Sister CAD (coronary artery disease) Surgical History History of surgery Hx of colonoscopy Hx of right cataract extraction Hx of left cataract extraction History of excision of lesion Hx of local excision of skin lesion History of cardioversion (03/20/19) History of hysterectomy History of partial mastectomy History of left heart catheterization (05/31/14) Social History household members: none housing: house current occupational status: retired Smoking Status: Former smoker how long ago did patient quit smokin, 2p/day second hand exposure: Yes alcohol intake: current alcohol intake frequency: holidays/special occasions only substance use type: does not use ROS ROS Narrative No fever or chills. No thoughts of self-harm. No homicidal ideation. No fever or chills. All review of systems were negative except as mentioned above in the history of present illness and the other review of systems. Vital Signs Vital Signs Vital Signs: 03/16/24 10:06 03/16/24 10:11 03/16/24 10:11 Temperature 36.9 C 37.1 C Temperature Source Oral Oral Pulse Rate 92 97 Respiratory Rate 32 H 36 H Respiratory Effort Short of Breath Labored Respiratory Depth Shallow Respiratory Pattern Tachypnea Blood Pressure 145/74 H 145/74 H Blood Pressure Mean 97 97 Pulse Ox 90 90 Oxygen Delivery Method Nasal Cannula Nasal Cannula Nasal Cannula Oxygen Flow Rate (L/min) 4 4 Fraction of Inspired Oxygen (FIO2) 03/16/24 10:20 03/16/24 10:20 03/16/24 11:15 Temperature Temperature Source Pulse Rate 102 H 87 Respiratory Rate 38 H 24 H Respiratory Effort Respiratory Depth Respiratory Pattern Normal Blood Pressure 145/76 H Blood Pressure Mean 99 Pulse Ox 97 97 97 Oxygen Delivery Method Bi-pap Bi-pap Oxygen Flow Rate (L/min) 4 Fraction of Inspired Oxygen (FIO2) 40 03/16/24 12:31 03/16/24 13:00 03/16/24 14:00 Temperature Temperature Source Pulse Rate 98 93 93 Respiratory Rate 33 H 20 H 26 H Respiratory Effort Respiratory Depth Respiratory Pattern Blood Pressure 160/88 H 177/80 H 129/95 H Blood Pressure Mean 112 112 106 Pulse Ox 94 94 93 Oxygen Delivery Method Nasal Cannula Room Air Room Air Oxygen Flow Rate (L/min) 4 4 Fraction of Inspired Oxygen (FIO2) Weight Weight: 124.2 kg Body Mass Index (BMI) 42.8 Physical Exam Const alert Constitutional Narrative: On BiPAP. In no obvious respiratory distress. General Appearance: cooperative HEENT normocephalic and head/scalp atraumatic Eyes Eyes Narrative: No icterus. Neck no lymphadenopathy Neck Narrative: No thyromegaly. Thick neck tissue and unable to appreciate any JVD. Resp Resp Narrative: Coarse breath sounds bilaterally on BiPAP. Cardio Cardio Narrative: Irregularly irregular. Distant heart sounds. GI normal to inspection, nondistended, normoactive bowel sounds and soft to palpation GI Narrative: Obese. Slight tenderness in the epigastric region without rebound. Extremity Extremity Narrative: Bilateral lower extremity edema with venous stasis changes lower extremities. Skin Skin Narrative: Venous stasis changes to lower extremities. Neuro Sensorium / Orientation: awake and alert Psych affect normal Results Lab / Micro Data 03/16/24 10:15 03/16/24 10:15 Labs: Laboratory Results - last 24 hr 03/16/24 10:15: WBC 10.6, RBC 3.83 L, Hgb 10.6 L, Hct 35.4 L, MCV 92.4, MCH 27.7, MCHC 29.9 L, RDW Std Deviation 53.6 H, RDW Coeff of Sudha 15.7 H, Plt Count 278, MPV 10.1, Immature Gran % (Auto) 0.900, Neut % (Auto) 84.6 H, Lymph % (Auto) 6.0 L, [place] % (Auto) 6.7, Eos % (Auto) 1.3, Baso % (Auto) 0.5, Absolute Neuts (auto) 9.0 H, Absolute Lymphs (auto) 0.64 L, Nucleated RBC % 0, PT 13.8, INR 1.1, APTT 28.8, Sodium 139, Potassium 4.0, Chloride 105, Carbon Dioxide 33.0 H, Anion Gap 2 L, BUN 23 H, Creatinine 1.48 H, Estim Creat Clear Calc 38.01, Est GFR (MDRD) Af Amer 43 L, Est GFR (MDRD) Non-Af 36 L, BUN/Creatinine Ratio 15.5, Glucose 211 H, Calcium 8.8, Total Bilirubin 0.40, Direct Bilirubin 0.16, AST 8 L, ALT 16, Alkaline Phosphatase 109, Troponin I High Sens 16, B-Natriuretic Peptide 350.3 H, Total Protein 6.7, Albumin 2.8 L, Globulin 3.9 Micro: Microbiology 03/16/24 10:18 Mucosa - Nasopharyngeal SARS-CoV-2, Influenza & RSV (PCR) - Final ABG Data ABG results: ABG 03/16/24 10:33 Specimen Type ART Sample Site R Brach pH 7.42 Bicarbonate Actual 28.6 H Total CO2 30 Base Excess 4 H O2 Saturation 94 L O2 % 40.0 ABG pCO2 44.4 ABG pO2 72 L Respiration Rate 16 O2 Delivery Device BiPAP Vent Mode AC Clinical Comments 02/22 Imaging Radiology Impression Chest X-Ray 03/16/24 10:30 IMPRESSION: 1. Persistent opacification of the right middle and lower lobes of lungs which may represent pneumonia and/or atelectasis. 2. Small bilateral pleural effusions. Left pleural effusion appears loculated. Electronically Signed: Emanuel Melo MD at 11:16 EST , Chest CTA 03/16/24 11:21 IMPRESSION: 1. Bilateral pleural effusions with compression atelectasis of the lower lobes. 2. Mild cardiomegaly. 3. No evidence of acute pulmonary embolism. Electronically Signed: Emanuel Melo MD at 13:28 EST , Assessment & Plan Assessment/Plan (1) Hypoxic respiratory failure: PLAN: Acute. Secondary to acute heart failure with pleural effusions. Complicated also by severe pulmonary artery hypertension: Likely class II if not component also of class III pulmonary hypertension. Patient was placed on BiPAP in the emergency room subsequent taken off to nasal cannula (currently emergency room physician she was not on room air as well as was documented in the vitals) but was not faring poorly and was replaced back on BiPAP. Treat the underlying process With the heart failure. Patient was inquiring about thoracentesis but I feel that the pleural effusions are too small at this time to safely perform a thoracentesis. Discussed the risks of pneumothorax. But if her condition were to worsen and if there were increased fluid accumulation and that may be a consideration. (2) (HFpEF) heart failure with preserved ejection fraction: PLAN: Patient is weight has gone up 8 to 9 pounds over the past several days. Patient will be on IV furosemide 40 mg twice daily. If no ischemic improvement, consideration for furosemide infusion. Continue with metoprolol succinate, Entresto Additionally fluid restrict. Daily weights. PLAN: Plan Chronic conditions Obesity class III: Complicates care and recovery Diabetes mellitus type 2: Insulin-dependent. Continue with basal insulin and glimepiride. Add sliding scale. Check an A1c. Hypothyroidism: Continue levothyroxine Atrial fibrillation: Slight RVR. Suspect this is due to her respiratory failure. Patient be monitored on telemetry. Continue with metoprolol succinate. Anticoagulation with apixaban. COPD: Not in exacerbation. Continue with bronchodilators. No indication for steroids at this time. Pulmonary artery hypertension: Complicates care and recovery. VTE prophylaxis: Not indicated as patient is already on anticoagulation. CODE STATUS: Addressed with the patient. Patient wishes to be full code at this time. Verified with her that she would want to be put on a ventilator leave short-term and she is open to having CPR if she were to have a cardiac arrest event. This is a change from previous CODE STATUS which was DNR Comfort Care arrest no intubation. Charges/Coding Visit Charges Inpatient E&M: 23183 Init Hosp L3
--- NOTE | 2024-03-16 14:36 | CM.ED ---
Social Work SW attempted to meet with patient to complete CM assessment, however patient not feeling well enough to participate in answering questions at this time. Elina Yap, CHIPPER MACHINE OPERATOR, OCCUPANCY SPECIALIST
[2024-03-16] MEDS: 0.9% Saline Lock 10 ML Syringe IV (17:49)
[2024-03-16] MEDS: Furosemide 40 MG/4 ML Vial IV (17:49)
[2024-03-16 18:00] LABS: Bedside Glucose 193 mg/dL (74-106)
[2024-03-16 18:47] LABS: Troponin-I HS 17 pg/mL (3.0-54.0)
[2024-03-16 20:33] LABS: Troponin-I HS 15 pg/mL (3.0-54.0)
[2024-03-16] MEDS: Atorvastatin Calcium 80 MG Tablet PO (21:14)
[2024-03-16] MEDS: Insulin Glargine-YFGN 100 UNIT/ML Pen 20 UNIT SC (21:15)
[2024-03-16] MEDS: Insulin Lispro 100 UNIT/ML INSULN.PEN SC (21:15)
[2024-03-16] MEDS: SACUBITRIL/VALSARTAN 49-51 MG TABLET 1 EACH PO (21:15)
[2024-03-16 22:25] LABS: Bedside Glucose 195 mg/dL (74-106)
[2024-03-16] MEDS: Metoprolol(XL)Succ 25 MG Tablet PO (22:54)
[2024-03-17 00:16] LABS: Troponin-I HS 14 pg/mL (3.0-54.0)
[2024-03-17 03:54] VITALS: BMI 40.7
[2024-03-17 04:30] VITALS: BP 146/82; PULSE 100; RESP 18; TEMP 36.9; O2SAT 96
[2024-03-17 06:39] LABS: Absolute Lymphocyte Count 0.93 X10^3/uL (0.83-4.51); Absolute Neutrophil Count 6.6 X10^3/uL (2.0-7.7); Basophil# 0.03 X10^3/uL; Basophil% 0.4 % (0-1); Eosinophil# 0.21 X10^3/uL; Eosinophils% 2.5 % (0-5); Hemoglobin 9.9 g/dL (12.0-15.0); Lymphocyte # 0.93 X10^3/ul (0.83-4.51); Mean Corpuscular Hgb 27.5 pg (27.0-32.0); Mean Corpuscular Volume 91.7 fL (81-99); Monocyte# 0.63 X10^3/uL; Monocyte% 7.4 % (0-10); NRBC Flagged by Analyzer 0 % (0-5); Neutrophil # 6.62 X10^3/uL (2.7-7.7); Neutrophil % 78.1 % (47-70); Platelet Count 269 K/mm3 (150-450); RBC Distribution Width CV 15.7 % (11.6-14.6); RBC Distribution Width SD 52.3 fl (35.1-43.9); White Blood Count 8.5 K/mm3 (4.4-11.0)
[2024-03-17] MEDS: Levothyroxine 100 MCG Tablet 200 MCG PO (06:43)
[2024-03-17 07:02] LABS: Bedside Glucose 146 mg/dL (74-106)
[2024-03-17 07:11] LABS: Anion Gap 3 (5-15); BUN 23 mg/dL (7-18); Calcium,Total 8.9 mg/dL (8.5-10.1); Chloride 102 mmol/L (98-107); Cholesterol 137 mg/dL (200); Creatinine, Serum 1.44 mg/dL (0.55-1.02); EST Glomerular Filtration Rate 37 mL/min (>60); Est Glom Filt Rate - Afr Amer 45 mL/min (>60); Estimated Creatinine Clearance 37.93 ml/min; Glucose 129 mg/dL (74-106); High Density Lipoprotein 49 mg/dL; Potassium 4.1 mmol/L (3.5-5.1); Sodium Level 139 mmol/L (136-145); Triglycerides 108 mg/dL; Very Low Density Lipoprotein 22 mg/dL (5-40)
--- NOTE | 2024-03-17 07:43 | NURSING ---
spoke with daughter Marleny and gave her update on patient, daughter asked if there was a penitentiary plan for patient, this nurse stated there was no watermelon inspector plan in the notes but that a doctor would be into day and daughter could call back in later to see if they have come up with more of a plan and/or can ask the doctor any questions
[2024-03-17 07:57] VITALS: O2SAT 96
[2024-03-17 07:58] LABS: Hemoglobin A1c 8.9 % (3.8-5.6)
[2024-03-17 08:35] LABS: Vitamin B12 258 pg/mL (211-911)
[2024-03-17 08:45] LABS: Ferritin 42 ng/mL (8-252); Iron 35 ug/dL (50-170); Iron Binding Capacity,Total 272 ug/dL (250-450); PERCENT IRON SATURATION 12.9 % (15.0-55.0)
[2024-03-17 09:00] VITALS: BP 137/61; PULSE 91; RESP 18; TEMP 36.4; O2SAT 96
[2024-03-17] MEDS: Furosemide 40 MG/4 ML Vial 60 MG IV ×2 (09:44→17:11)
[2024-03-17] MEDS: APIXABAN 2.5 MG TABLET (WCH) PO (09:44)
[2024-03-17] MEDS: SACUBITRIL/VALSARTAN 49-51 MG TABLET 1 EACH PO ×2 (09:44→21:56)
[2024-03-17] MEDS: dilTIAZem CD 240 MG Capsule PO (09:44)
[2024-03-17] MEDS: 0.9% Saline Lock 10 ML Syringe IV ×2 (09:50→17:11)
[2024-03-17] MEDS: Insulin Glargine-YFGN 100 UNIT/ML Pen 20 UNIT SC ×2 (09:54→21:59)
--- NOTE | 2024-03-17 11:36 | PCM.PN.HOSP ---
Reason for Visit Reason for Visit: Diagnoses Unspecified diastolic (congestive) heart failure (03/16/24) Respiratory failure, unspecified with hypoxia (03/16/24) Subjective Subjective Saw patient at bedside this morning. Patient was mildly fatigued appearing but otherwise sitting up comfortably in bed and in no acute distress. She is breathing comfortably on 4 L nasal cannula at rest. She notably is on home 4 L at baseline. States she has had good urine output since coming in yesterday on the IV Lasix. Denies any shortness of breath at rest. Has not gotten up out of bed yet this morning. No other acute concerns this morning. Objective Data Objective Data Vital Signs: Vital Signs Temp Pulse Resp BP Pulse Ox O2 Del Method O2 Flow Rate 97.6 F L 91 18 137/61 H 96 Nasal Cannula 4 03/17/24 09:00 03/17/24 09:00 03/17/24 09:00 03/17/24 09:00 03/17/24 09:00 03/17/24 09:00 03/17/24 09:00 FiO2 30 03/16/24 14:00 Oxygen Flow Rate (L/min) 4 Oxygen Delivery Method Nasal Cannula Weight: 117.9 kg Body Mass Index (BMI) 40.7 Intake & Output: Intake and Output for Last 24 Hours 03/15/24 03/16/24 03/17/24 23:59 23:59 23:59 Output Total 1700 / 1700 Balance -1700 / -1700 Lab / Micro Data 03/17/24 06:07 03/17/24 06:07 Labs: Laboratory Results - last 24 hr 03/16/24 17:42: POC Glucose 193 H 03/16/24 17:56: Troponin I High Sens 17 03/16/24 20:10: Troponin I High Sens 15 03/16/24 20:54: POC Glucose 195 H 03/16/24 23:51: Troponin I High Sens 14 03/17/24 06:07: WBC 8.5, RBC 3.60 L, Hgb 9.9 L, Hct 33.0 L, MCV 91.7, MCH 27.5, MCHC 30.0 L, RDW Std Deviation 52.3 H, RDW Coeff of Sudha 15.7 H, Plt Count 269, MPV 10.0, Immature Gran % (Auto) 0.600, Neut % (Auto) 78.1 H, Lymph % (Auto) 11.0 L, Bradford % (Auto) 7.4, Eos % (Auto) 2.5, Baso % (Auto) 0.4, Absolute Neuts (auto) 6.6, Absolute Lymphs (auto) 0.93, Nucleated RBC % 0, Sodium 139, Potassium 4.1, Chloride 102, Carbon Dioxide 34.0 H, Anion Gap 3 L, BUN 23 H, Creatinine 1.44 H, Estim Creat Clear Calc 37.93, Est GFR (MDRD) Af Amer 45 L, Est GFR (MDRD) Non-Af 37 L, BUN/Creatinine Ratio 16.0, Glucose 129 H, Hemoglobin A1c 8.9 H, Calcium 8.9, Iron 35 L, TIBC 272, Iron Saturation 12.9 L, Ferritin 42, Triglycerides 108, Cholesterol 137, LDL Cholesterol 66, VLDL Cholesterol 22, HDL Cholesterol 49, Vitamin B12 258, Folate 16.70 03/17/24 06:42: POC Glucose 146 H Micro: Microbiology 03/16/24 10:18 Mucosa - Nasopharyngeal SARS-CoV-2, Influenza & RSV (PCR) - Final Radiography Diagnostic Testing: Radiology Impression Chest CTA 03/16/24 11:21 IMPRESSION: 1. Bilateral pleural effusions with compression atelectasis of the lower lobes. 2. Mild cardiomegaly. 3. No evidence of acute pulmonary embolism. Electronically Signed: Emanuel Melo MD at 13:28 EST Reading Location ID and State: [address] [place] [address] Tel , Service support , Physical Exam Const alert, oriented x3 and no apparent distress Constitutional Narrative: Elderly female, class III obesity, mildly fatigued appearing, otherwise sitting up comfortably in bed, conversing normally, in no acute distress. General Appearance: cooperative and comfortable HEENT normocephalic, head/scalp atraumatic, hearing grossly normal bilaterally, nasal mucous membranes and turbinates normal and moist oral mucous membranes Eyes PERRL, EOMs intact bilaterally and conjunctivae normal Neck full ROM Chest inspection of chest normal Resp normal respiratory effort and no use of accessory muscles Resp Narrative: Breathing comfortably on home 4 L nasal cannula at rest. Decreased breath sounds in right lung base but otherwise good air movement throughout with no crackles or wheezing noted. Cardio regular rate, regular rhythm, no murmurs and peripheral pulses 2+ throughout GI normal to inspection, nondistended, normoactive bowel sounds, soft to palpation, non-tender and non-distended Back/Spine normal ROM Extremity Extremity Narrative: +2-3 lower extremity pitting edema up to below the knee. Skin no rashes or lesions noted Neuro moves all extremities and no focal motor deficits Speech: speech normal Motor Exam: strength 5/5 throughout Psych mental status grossly normal Assessment & Plan Assessment/Plan (1) Acute on chronic hypoxic respiratory failure: (2) Acute heart failure with preserved ejection fraction (HFpEF): PLAN: Plan Patient is an 84-year-old female who presented to [facility] ED on 03/16/2024 with worsening shortness of breath. 1. Acute on chronic hypoxic respiratory failure secondary to acute HFpEF exacerbation with right pleural effusion, improving ? On home 4 L nasal cannula and was requiring BiPAP on admission for hypoxia and increased work of breathing. CTA chest showed mild cardiomegaly with small right-sided pleural effusion. BNP elevated. Most recent echo on 12/25 showed EF 65%, unable to assess diastolic dysfunction due to arrhythmia, severe pulmonary hypertension with 4+ tricuspid valve insufficiency, mild global RV systolic dysfunction and severe biatrial dilation. Treating with IV Lasix 60 mg twice daily for now with good urine output. Notably right sided effusion is too small to tap. Continue to monitor daily BMP and urine output. Improved back to home 4 L nasal cannula at rest on 03/17. Continue home diltiazem, Toprol, Entresto and rosuvastatin. Hopeful for discharge home in the next 1 to 2 days. 2. Type 2 diabetes mellitus ? A1c 8.9% on admit. A1c was previously controlled in the 6-7 range but has been worsening over the last year for unclear reason. Will treat with home long-acting insulin 20 units twice daily and sliding scale insulin with meals while inpatient, adjust as needed. 3. CKD stage IIIb ? Creatinine 1.48 on admit, baseline 1.2-1.4. Stable at baseline. 4. Chronic iron deficiency anemia ? Hemoglobin stable at baseline around 10 on admit. Iron studies show low iron and iron saturation with low normal ferritin 42. Will give 2 doses of IV iron 100 mg while inpatient. Chronic medical conditions: ? Class III obesity: BMI 40 on admit. Complicates hospital course, care and prognosis. ? COPD with pulmonary arterial hypertension: Suspected that worsened hypoxia on admit was secondary to heart failure exacerbation rather than COPD. Continue home short acting inhaler as needed. ? Chronic A-fib: Mild RVR on admit presumed secondary to heart failure exacerbation, now improved. Continue home Eliquis and Toprol. ? Hypothyroidism: TSH normal in January. Continue home Synthroid. DVT prophylaxis: Not indicated, on Eliquis CODE STATUS: Full code, verified Expected disposition: Home, 1 to 2 days Total clinical time spent by myself addressing the patient's medical issues, reviewing all the data, and collaborating with patient's care team: 35 minutes. Charges/Coding Visit Charges Inpatient E&M: 33199 Subs Hosp L2
--- NOTE | 2024-03-17 11:37 | CASEMGMT ---
FLETCHER UGARTE called and updated [facility] of possible discharge tomorrow. Per Molly at [facility], celso has not been home bound. FLETCHER UGARTE in to room with Molly on phone to discuss home bound status, patient states she will not be home bound at she still plays cards and goes out to dinner. Molly updated patient that since she is not home bound they will not be able to follow patient any longer. FLETCHER UGARTE discuss CCN program and patient agreeable to referral. Patient denied further needs or concerns. CM will continue to follow this patient and plan for a safe discharge.
--- NOTE | 2024-03-17 11:40 | CASEMGMT ---
FLETCHER UGARTE Assessment: Face to Face with pt for initial transition planning/care coordination assessment. FLETCHER UGARTE introduced self and role at [facility], pt voices understanding and consents to assessment. Pt is A&O x4 and answers all questions appropriately at this time. Pt lying in bed in no distress. Care providers, pharmacy, and demographics verified/updated. Strata:2 Admitting Dx: CHF exacerbation PCP: Misael Specialists: STEPHY; Timo, Pulmonology; Frank, Nephrology Preferred Pharmacy: [facility] Insurance: better., [employer] Prescription Benefit: yes LNOK: Step-son, Garret; Daughter, Marleny. Living Arrangements: Pt lives alone in a 2 story home with no steps to enter but has 11 steps to get to main level with kitchen which she goes up to 1 time a day. ADLs: Pt reports I with ADLs Transportation: Pt drives self and denies concerns with transportation. DME: Walker, Pulse Ox, O2 through [employer], glucometer and supplies. HHC/SNF: Currently set up with [facility] SN. Pt would like to continue SN services at time of DC with [facility]. Denies wanting therapy services. Pt states no concerns with going home at time of dc. Pt states no further concerns/needs. CM to follow. Advised pt to ask CM if any further question/concerns/needs arise, voices understanding. Pt Goal: Home Plan: Home with [facility] resumption of care, follow therapy. Chirag BYNUM CM
[2024-03-17] MEDS: Insulin Lispro 100 UNIT/ML INSULN.PEN SC ×2 (11:46→22:00)
[2024-03-17 12:09] LABS: Bedside Glucose 177 mg/dL (74-106)
[2024-03-17 15:00] VITALS: BP 127/65; PULSE 82; RESP 18; TEMP 36.6; O2SAT 95
[2024-03-17 17:38] LABS: Bedside Glucose 148 mg/dL (74-106)
[2024-03-17 21:00] VITALS: BP 149/70; PULSE 92; RESP 20; TEMP 36.8; O2SAT 96
[2024-03-17] MEDS: Atorvastatin Calcium 80 MG Tablet PO (21:56)
[2024-03-17 21:58] VITALS: BP 149/70; PULSE 92
[2024-03-17] MEDS: Metoprolol(XL)Succ 25 MG Tablet PO (21:58)
[2024-03-17 23:07] LABS: Bedside Glucose 213 mg/dL (74-106)
[2024-03-18 03:00] VITALS: BP 134/59; PULSE 81; RESP 20; TEMP 36.6; O2SAT 95
[2024-03-18 03:50] VITALS: BMI 40.6
[2024-03-18 05:48] LABS: Anion Gap 5 (5-15); BUN 27 mg/dL (7-18); BUN/Creat Ratio 16.2 RATIO (10-20); Calcium,Total 8.8 mg/dL (8.5-10.1); Chloride 98 mmol/L (98-107); Creatinine, Serum 1.67 mg/dL (0.55-1.02); EST Glomerular Filtration Rate 31 mL/min (>60); Est Glom Filt Rate - Afr Amer 38 mL/min (>60); Estimated Creatinine Clearance 32.69 ml/min; Glucose 191 mg/dL (74-106); Potassium 3.6 mmol/L (3.5-5.1); Sodium Level 136 mmol/L (136-145)
[2024-03-18] MEDS: Insulin Lispro 100 UNIT/ML INSULN.PEN SC ×2 (06:01→11:14)
[2024-03-18] MEDS: Levothyroxine 100 MCG Tablet 200 MCG PO (06:02)
[2024-03-18 08:01] LABS: Bedside Glucose 168 mg/dL (74-106)
[2024-03-18 09:00] VITALS: BP 135/80; PULSE 85; RESP 18; TEMP 36.3; O2SAT 95
[2024-03-18] MEDS: Sodium Ferric Gluconat 250 MG in 0.9% Normal Saline 250 ML 135 MG IV (09:04)
[2024-03-18] MEDS: SACUBITRIL/VALSARTAN 49-51 MG TABLET 1 EACH PO (09:13)
[2024-03-18] MEDS: APIXABAN 2.5 MG TABLET (WCH) PO (09:13)
[2024-03-18] MEDS: dilTIAZem CD 240 MG Capsule PO (09:13)
[2024-03-18] MEDS: Furosemide 40 MG/4 ML Vial 60 MG IV (09:14)
[2024-03-18] MEDS: 0.9% Saline Lock 10 ML Syringe IV (09:17)
[2024-03-18] MEDS: Insulin Glargine-YFGN 100 UNIT/ML Pen 20 UNIT SC (09:19)
[2024-03-18 11:22] VITALS: O2SAT 91; O2SAT 94
[2024-03-18 11:26] VITALS: O2SAT 96
[2024-03-18 12:50] LABS: Bedside Glucose 180 mg/dL (74-106)
--- NOTE | 2024-03-18 12:52 | DS.PCM_ITS ---
Providers Date of Admission: 03/16/24 Date of Discharge: 03/18/24 Primary Care Physician: Dr. Alexy Douglas MD Reason For Visit: CHF EXACERBATION Diagnosis Discharge Diagnosis (1) Acute on chronic hypoxic respiratory failure: Status: Chronic Code(s): J96.21 - Acute and chronic respiratory failure with hypoxia (2) Acute heart failure with preserved ejection fraction (HFpEF): Status: Acute Code(s): I50.31 - Acute diastolic (congestive) heart failure Medications at Discharge Home Medications diltiazem HCl 240 mg capsule,extended release 24 hr 240 mg PO DAILY heart #90 caps 04/26/23 apixaban 2.5 mg tablet (Eliquis) 2.5 mg PO DAILY blood thinner 08/20/23 sacubitril 49 mg-valsartan 51 mg tablet (Entresto) 1 tab PO BID heart 10/21/23 levothyroxine 200 mcg tablet 200 mcg PO DAILY thyroid 12/02/23 rosuvastatin 40 mg tablet 40 mg PO QHS cholesterol 12/02/23 insulin degludec 100 unit/mL (3 mL) subcutaneous pen (Tresiba FlexTouch U-100 insulin) 20 unit subcut BID diabetes 12/26/23 cholecalciferol (vitamin D3) 25 mcg (1,000 unit) capsule (Vitamin D3) 25 mcg PO DAILY supplement 01/20/24 furosemide 40 mg tablet 40 mg PO BIDLX #60 tabs 01/20/24 glimepiride 1 mg tablet 1 mg PO DAILY 03/16/24 metoprolol succinate 25 mg tablet,extended release 24 hr 25 mg PO QHS 03/16/24 Hospital Course Operations None Procedures EKG and - (Chest x-ray, CTA chest) Summary of Care Provided Minutes Spent on Discharge: 35 Hospital Course: Patient is an 84-year-old female who presented to [facility] ED on 03/16/2024 with worsening shortness of breath. Hospital course as noted below. Patient discharged home with home health care in stable condition on . Acute on chronic hypoxic respiratory failure secondary to acute HFpEF exacerbation with right pleural effusion, improving ? On home 4 L nasal cannula and was requiring BiPAP on admission for hypoxia and increased work of breathing. CTA chest showed mild cardiomegaly with small right-sided pleural effusion. BNP elevated. Most recent echo on 10/10 showed EF 65%, unable to assess diastolic dysfunction due to arrhythmia, severe pulmonary hypertension with 4+ tricuspid valve insufficiency, mild global RV systolic dysfunction and severe biatrial dilation. Treated with IV Lasix 60 mg twice daily while inpatient with good urine output and contraction seen on BMP on 03/18. Notably right sided effusion was too small to tap. Improved back to home 4 L nasal cannula at rest on 03/17. Completed oxygen testing on 03/18 and did not require more than her baseline level of oxygen. Patient will unfortunately be difficult to control medically given her severe pulmonary hypertension as noted above. Will continue her home Lasix 40 mg twice daily on discharge as well as her home diltiazem, Toprol, Entresto and rosuvastatin. Will defer any medication changes to outpatient cardiology and pulmonology. 2. Type 2 diabetes mellitus ? A1c 8.9% on admit. A1c was previously controlled in the 6-7 range but has been worsening over the last year for unclear reason. Treated with home long- acting insulin 20 units twice daily and sliding scale insulin with meals while inpatient. Okay to resume home insulin and glimepiride on discharge but recommend discussing with PCP on follow-up on potential need for dose change versus adding additional oral diabetic agents. 3. CKD stage IIIb ? Creatinine 1.48 on admit, baseline 1.2-1.4. Stable at baseline. 4. Chronic iron deficiency anemia ? Hemoglobin stable at baseline around 10 on admit. Iron studies show low iron and iron saturation with low normal ferritin 42. Gave 1 dose of IV iron 200 mg while inpatient and recommended patient discuss with PCP about having further IV iron supplementation done in the future. 5. Acute on chronic debility ? PT/OT/case management followed. Patient stable for discharge home with home health care on 03/18. Chronic medical conditions: ? Class III obesity: BMI 40 on admit. Complicated hospital course, care and prognosis. ? COPD with pulmonary arterial hypertension: Suspected that worsened hypoxia on admit was secondary to heart failure exacerbation rather than COPD. Continue home short acting inhaler as needed. ? Chronic A-fib: Mild RVR on admit presumed secondary to heart failure exacerbation, improved. Continue home Eliquis and Toprol. ? Hypothyroidism: TSH normal in January. Continue home Synthroid. Total clinical time spent by myself addressing the patient's medical issues, reviewing all the data, and collaborating with patient's care team: 35 minutes. Physical Exam Const alert, oriented x3 and no apparent distress Constitutional Narrative: Elderly female, class III obesity, energy improved from admission, otherwise sitting up comfortably in bed, conversing normally, in no acute distress. General Appearance: cooperative and comfortable HEENT normocephalic, head/scalp atraumatic, hearing grossly normal bilaterally, nasal mucous membranes and turbinates normal and moist oral mucous membranes Eyes PERRL, EOMs intact bilaterally and conjunctivae normal Neck full ROM Chest inspection of chest normal Resp normal respiratory effort and no use of accessory muscles Resp Narrative: Breathing comfortably on home 4 L nasal cannula at rest. Breath sounds improved bilaterally throughout from admission. Cardio regular rate, regular rhythm, no murmurs and peripheral pulses 2+ throughout GI normal to inspection, nondistended, normoactive bowel sounds, soft to palpation, non-tender and non-distended Back/Spine normal ROM Extremity Extremity Narrative: Trace lower extremity pitting edema, improved. Skin no rashes or lesions noted Neuro moves all extremities and no focal motor deficits Speech: speech normal Motor Exam: strength 5/5 throughout Psych mental status grossly normal Weight / BMI Weight Weight: 117.8 kg Body Mass Index (BMI) 40.6 ABG / Lab / Microbiology Data 03/17/24 06:07 03/18/24 04:45 Laboratory: Laboratory Results - last 24 hr 03/17/24 17:09: POC Glucose 148 H 03/17/24 21:55: POC Glucose 213 H 03/18/24 04:45: Sodium 136, Potassium 3.6, Chloride 98, Carbon Dioxide 34.0 H, Anion Gap 5, BUN 27 H, Creatinine 1.67 H, Estim Creat Clear Calc 32.69, Est GFR (MDRD) Af Amer 38 L, Est GFR (MDRD) Non-Af 31 L, BUN/Creatinine Ratio 16.2, G lucose 191 H, Calcium 8.8 03/18/24 06:00: POC Glucose 168 H 03/18/24 11:11: POC Glucose 180 H Microbiology: Microbiology 03/16/24 10:18 Mucosa - Nasopharyngeal SARS-CoV-2, Influenza & RSV (PCR) - Final D/C Instructions DC O2, CPAP, BIPAP Needs RN Home O2 Qualification: Home O2 Qualification: Is the patient on home oxygen Yes 03/18/24 11:22 Home O2 Qualification: AT REST 1-Pulse Ox at rest 94 03/18/24 11:22 1- Oxygen flow rate at rest 4 03/18/24 11:22 Home O2 Qualification: WITH AMBULATION 1- Pulse Ox with ambulation 91 03/18/24 11:22 1- Oxygen Flow Rate with 4 03/18/24 11:22 ambulation PSN CPAP & BiPAP: BiPAP & CPAP Settings per PSN Mode BiPAP 03/16/24 14:00 Bipap Delivery Device Face Mask 03/16/24 14:00 BiPAP Inspiratory Pressure 12 03/16/24 14:00 BiPAP Expiratory Pressure 8 03/16/24 14:00 BiPAP Rate 12 03/16/24 14:00 Fraction of Inspired Oxygen ( 30 03/16/24 14:00 FIO2) Home O2 Discharge instructions: No Meaningful Use Info Meaningful Use Meaningful Use Diagnoses (Choose all that apply): CHF CHF JIMI/ARB ordered at discharge?: Yes Documented LVEF (%): 65 Ischemic Stroke Statin Dosing Therapy Reference: STATIN DOSE THERAPY REFERENCE: * Patients > 75 years receive moderate or high dose statin therapy. * Patients 75 years or YOUNGER should receive HIGH intensity statin dose unless contraindicated. You will be required to document reason for non-treatment if statin daily dose does not meet guidelines. HIGH DOSE STATIN THERAPY DAILY Atorvastatin > than or = to 40 mg Rosuvastatin > than or = to 20 mg Amlodipine + Atorvastatin > than or = to 2.5/40 mg Ezetimibe + Simvastatin 10/80 mg Simvastatin 80mg Discharge Plan Admission Admit Date/Time: 03/16/24 16:13 Primary Reason for Your Visit: Shortness of breath with volume overload Attending Provider: Amaury Pena Primary Care Provider: Alexy Douglas [employer] Providers: Vidal Campbell Instructions Additional Instructions / Restrictions: Continue home medications as normal. Follow-up with pulmonology and cardiology in the office as scheduled. Discharge Orders/Prescriptions Prescriptions: Continued diltiazem HCl 240 mg capsule,extended release 24hr 240 mg PO DAILY Qty: 90 3RF sacubitril-valsartan [Entresto] 49-51 mg tablet 1 tab PO BID levothyroxine 200 mcg tablet 200 mcg PO DAILY rosuvastatin 40 mg tablet 40 mg PO QHS furosemide 40 mg Tablet 40 mg PO BIDLX Qty: 60 0RF cholecalciferol (vitamin D3) [Vitamin D3] 25 mcg (1,000 unit) capsule 25 mcg PO DAILY glimepiride 1 mg tablet 1 mg PO DAILY metoprolol succinate 25 mg tablet extended release 24 hr 25 mg PO QHS Eliquis 2.5 mg tablet 2.5 mg PO DAILY insulin degludec [Tresiba FlexTouch U-100] 100 unit/mL (3 mL) insulin pen 20 unit subcut BID Referrals / Follow Up: Alexy Douglas Chi, MD [Primary Care Provider] - Disposition Disposition (needs filled in before D/C Order can be placed): Home Health Service Charges/Coding Visit Charges Inpatient E&M: 45982 Disch Hosp >30min
[2024-03-18 13:12] VITALS: BP 135/80; PULSE 85; RESP 18; TEMP 36.3; O2SAT 95
--- NOTE | 2024-03-19 14:51 | CCN.REFER ---
PATIENT DECLINING CCN SERVICES. DOES NOT AGREE TO WEEKLY HOME VISITS. STATES SHE WILL ONLY AGREE IF WE CAN MAKE A VISIT ONCE A MONTH. EDUCATION PROVIDED ON CLOSELY MONITORING CHF. PHONE NUMBER LEFT FOR PATIENT TO CALL THIS RN IF SHE CHANGES HER MIND.
== END 2024-03-18 13:51 | disposition home health service (06) | DRG 291 ==
LOC: ED 12:21 → PCU 03-17 07:02
PROVIDERS: Emergency Provider Emergency Medicine; PCP Family Medicine Geriatric Medicine; Visit Provider Hospitalist
DX: I13.0 Hypertensive heart and chronic kidney disease with heart failure and stage 1 through stage 4 chronic kidney disease, or unspecified chronic kidney disease (principal); J96.21 Acute and chronic respiratory failure with hypoxia; I50.31 Acute diastolic (congestive) heart failure; J90 Pleural effusion, not elsewhere classified; Z68.41 Body mass index [BMI] 40.0-44.9, adult; I27.20 Pulmonary hypertension, unspecified; E11.22 Type 2 diabetes mellitus with diabetic chronic kidney disease; D50.9 Iron deficiency anemia, unspecified; N18.32 Chronic kidney disease, stage 3b; J44.9 Chronic obstructive pulmonary disease, unspecified; E03.9 Hypothyroidism, unspecified; I48.91 Unspecified atrial fibrillation; Z79.4 Long term (current) use of insulin; E78.5 Hyperlipidemia, unspecified; Z79.01 Long term (current) use of anticoagulants; Z90.710 Acquired absence of both cervix and uterus; Z79.84 Long term (current) use of oral hypoglycemic drugs; Z79.890 Hormone replacement therapy; Z87.891 Personal history of nicotine dependence; E66.813 Obesity, class 3
CPT/HCPCS: 36415; 36600; 71045; 71275; 80048; 80061; 80076; 82607; 82728; 82746; 82803; 82962; 83036; 83540; 83550; 83880; 84484; 85025; 85610; 85730; 87631; 93005; 94002; 94762; 97116; 97162; 97166; 97530; 97802; 99285; Q9967; A4216; J1940; J2916

== ENCOUNTER → 2024-03-31 | Outpatient (CLI) | payer MEDICARE, OTHER, SELFPAY ==
[2024-03-31 14:51] LABS: Absolute Lymphocyte Count 1.13 X10^3/uL (0.83-4.51); Absolute Neutrophil Count 8.8 X10^3/uL (2.0-7.7); Basophil# 0.06 X10^3/uL; Basophil% 0.5 % (0-1); Eosinophils% 1.8 % (0-5); Hematocrit 33.6 % (37-47); Hemoglobin 10.2 g/dL (12.0-15.0); Lymphocyte # 1.13 X10^3/ul (0.83-4.51); Lymphocyte % 10.2 % (19-41); Mean Corp Hgb Conc 30.4 g/dL (32-36); Mean Corpuscular Hgb 28.1 pg (27.0-32.0); Mean Corpuscular Volume 92.6 fL (81-99); Mean Platelet Vol. 10.2 fl (6.2-12.0); Monocyte# 0.72 X10^3/uL; Monocyte% 6.5 % (0-10); NRBC Flagged by Analyzer 0 % (0-5); Neutrophil # 8.84 X10^3/uL (2.7-7.7); Neutrophil % 80.3 % (47-70); Platelet Count 266 K/mm3 (150-450); RBC Distribution Width CV 15.8 % (11.6-14.6); RBC Distribution Width SD 53.1 fl (35.1-43.9); Red Blood Count 3.63 M/mm3 (4.2-5.4)
[2024-03-31 15:28] LABS: Vitamin D,25 Hydroxy 50.1 ng/mL
[2024-03-31 16:02] LABS: ALB/GLOB Ratio 0.8 RATIO (0.9-2.4); AST(SGOT) 15 U/L (15-37); Alanine Aminotransfer ALT/SGPT 16 U/L (13-56); Albumin, Serum 2.9 g/dL (3.2-5.0); Alkaline Phosphatase 97 U/L (45-117); Anion Gap 7 (5-15); BUN 28 mg/dL (7-18); BUN/Creat Ratio 17.7 RATIO (10-20); Calcium,Total 8.8 mg/dL (8.5-10.1); Chloride 103 mmol/L (98-107); Creatinine, Serum 1.58 mg/dL (0.55-1.02); EST Glomerular Filtration Rate 33 mL/min (>60); Est Glom Filt Rate - Afr Amer 40 mL/min (>60); Globulin 3.5 g/dL (2.2-4.2); Glucose 201 mg/dL (74-106); Potassium 4.3 mmol/L (3.5-5.1); Protein, Total 6.4 g/dL (6.4-8.2); Sodium Level 140 mmol/L (136-145)
== END | disposition home or self-care (01) ==
LOC: POLAB3 14:37
PROVIDERS: PCP Family Medicine Geriatric Medicine; Visit Provider Family Medicine Geriatric Medicine
DX: E11.65 Type 2 diabetes mellitus with hyperglycemia (principal); I10 Essential (primary) hypertension; E55.9 Vitamin D deficiency, unspecified
CPT/HCPCS: 36415; 80053; 82306; 84443; 85025

== ENCOUNTER → 2024-04-01 | Outpatient (CLI) | payer MEDICARE, OTHER, SELFPAY ==
--- NOTE | 2024-04-01 14:07 | RAD_ITS ---
EXAM: XR CHEST, 2 VIEWS CLINICAL INDICATION: Chronic respiratory failure with hypoxia TECHNIQUE: Frontal and lateral views of the chest. COMPARISON: 03/16/2024 FINDINGS: LUNGS AND PLEURAL SPACES: There is bibasilar airspace disease which may represent pneumonia. There is mild improved aeration in the right lung base compared to the reference exam. There is blunting the left costophrenic angle which may represent a loculated effusion or pleural scarring. No pneumothorax. HEART: Unremarkable. Cardiac silhouette not enlarged. MEDIASTINUM: Central airways and mediastinal contour are unremarkable. BONES/JOINTS: Unremarkable. No acute fracture. SOFT TISSUES: Unremarkable. RAD/Chest PA and Lateral IMPRESSION: A loculated left-sided effusion or scarring. There is a small right-sided effusion. There is bibasilar airspace disease which may represent pneumonia. There is mild improved aeration from the reference exam. Electronically Signed: Scot Laughlin MD at 0:00 EST ,
== END | disposition home or self-care (01) ==
LOC: RAD 14:06
PROVIDERS: PCP Family Medicine Geriatric Medicine; Referring Provider Family Medicine Geriatric Medicine; Visit Provider Family Medicine Geriatric Medicine
DX: J96.11 Chronic respiratory failure with hypoxia (principal)
CPT/HCPCS: 71046

== ENCOUNTER 2024-04-05 10:59 | Inpatient (IN) | payer MEDICARE, OTHER, SELFPAY ==
[2024-04-05] VITALS (17 sets, daily range): BP systolic 110–189; BP diastolic 52–104; PULSE 104–126; RESP 20–118; TEMP 36.1–37.3; O2SAT 93–98; BMI 43.1; BMI 40.9
--- NOTE | 2024-04-05 11:06 | EKG12_ITS ---
Test Reason : KB Blood Pressure : */* mmHG Vent. Rate : 126 BPM Atrial Rate : * BPM P-R Int : * ms QRS Dur : 140 ms QT Int : 374 ms P-R-T Axes : * 131 -27 degrees QTcB Int : 541 ms Atrial fibrillation with rapid ventricular response Right bundle branch block Left posterior fascicular block Bifascicular block Abnormal ECG Confirmed by JANNETH SELF, LAURIE ([id number]), greeting card editor PAUL GALAN ([id number]) on 04/06/2024 10:55:38 A M Referred By: VALERIA Confirmed By: LAURIE LAGUNAS MD
[2024-04-05 11:16] LABS: Absolute Lymphocyte Count 0.79 X10^3/uL (0.83-4.51); Absolute Neutrophil Count 9.4 X10^3/uL (2.0-7.7); Basophil# 0.03 X10^3/uL; Basophil% 0.3 % (0-1); Eosinophil# 0.11 X10^3/uL; Hemoglobin 10.9 g/dL (12.0-15.0); Lymphocyte # 0.79 X10^3/ul (0.83-4.51); Lymphocyte % 7.1 % (19-41); Mean Corp Hgb Conc 30.3 g/dL (32-36); Mean Corpuscular Hgb 27.9 pg (27.0-32.0); Mean Corpuscular Volume 92.3 fL (81-99); Mean Platelet Vol. 10.1 fl (6.2-12.0); Monocyte# 0.73 X10^3/uL; Monocyte% 6.6 % (0-10); NRBC Flagged by Analyzer 0 % (0-5); Neutrophil # 9.38 X10^3/uL (2.7-7.7); Neutrophil % 84.5 % (47-70); Platelet Count 253 K/mm3 (150-450); RBC Distribution Width CV 15.7 % (11.6-14.6); RBC Distribution Width SD 52.8 fl (35.1-43.9); White Blood Count 11.1 K/mm3 (4.4-11.0)
[2024-04-05 11:17] LABS: Blood Gas Specimen Type VEN; O2 Delivery Device Not entered; SITE Not entered; VBG BASE EXCESS 6 mmol/L (-1.0-3.5); VBG Bicarbonate 31 mmol/L (22-26); VBG PO2 22 mmHg (25-40); VBG SO2 33 % (50-70); VBG TCO2 33 mmol/L (23-33); VBG pCO2 55.4 mmHg (41-51); VBG pH 7.36 (7.32-7.42)
[2024-04-05] MEDS: Ipratropium/Albuterol Sulfate 3 ML AMPUL.NEB INHALATION (11:22)
[2024-04-05] MEDS: Albuterol 2.5 MG/3 ML VIAL.NEB. INHALATION ×3 (11:22→13:08)
--- NOTE | 2024-04-05 11:35 | RAD_ITS ---
STUDY: X-RAY CHEST REASON FOR EXAM: Female, 84 years old. Respiratory distress, rales bilaterally TECHNIQUE: Single AP portable view of the chest. COMPARISON: April 01, 2024 FINDINGS: 1. Unresolved moderate bilateral lower lobe consolidation with small bilateral pleural effusions 2. Chronic pleural thickening in the lateral aspect of the left upper lobe redemonstrated 3. Cystic emphysematous changes and interstitial fibrosis 4. The heart is mildly enlarged 5. Chronic pulmonary vascular congestion and edema 6. Stable mediastinum and osseous structures There is no demonstrated abnormality of the visualized soft tissue structures of the upper abdomen. RAD/Chest 1 View (Portable) IMPRESSION: Unresolved moderate bilateral lower lobe consolidation with small bilateral pleural effusions Electronically Signed: Alexi Rebolledo MD at 12:32 EST ,
[2024-04-05 11:37] LABS: BNP,B-Type NATRIURETIC PEPTIDE 457.8 pg/mL (0-100)
[2024-04-05 11:42] LABS: ALB/GLOB Ratio 0.7 RATIO (0.9-2.4); AST(SGOT) 21 U/L (15-37); Alanine Aminotransfer ALT/SGPT 13 U/L (13-56); Albumin, Serum 2.9 g/dL (3.2-5.0); Alkaline Phosphatase 105 U/L (45-117); Anion Gap 4 (5-15); BUN 24 mg/dL (7-18); BUN/Creat Ratio 15.6 RATIO (10-20); Calcium,Total 9.3 mg/dL (8.5-10.1); Chloride 108 mmol/L (98-107); Creatinine, Serum 1.54 mg/dL (0.55-1.02); EST Glomerular Filtration Rate 34 mL/min (>60); Est Glom Filt Rate - Afr Amer 41 mL/min (>60); Estimated Creatinine Clearance 36.66 ml/min; Glucose 179 mg/dL (74-106); Potassium 4.5 mmol/L (3.5-5.1); Protein, Total 6.9 g/dL (6.4-8.2); Sodium Level 143 mmol/L (136-145); Troponin-I HS 27 pg/mL (3.0-54.0)
[2024-04-05 11:44] LABS: Lactic Acid 1.2 mmol/L (0.4-1.9)
--- NOTE | 2024-04-05 12:33 | EDS_ITS ---
HPI History of Present Illness Chief Complaint: Shortness of Breath Detail of Chief Complaint: Shortness of breath Informant: patient Onset/Context/Timing Onset: Weeks Context: Gradual Onset Timing: Continuous and Waxes and wanes Quality: Dyspnea, dyspnea on exertion, orthopnea and nonproductive cough Location: Primarily respiratory and history of heart failure with preserved ejection Current Severity: Severe Maximum Severity: Severe Worsened by: Lack of oxygen Relieved by: Nothing, improved after she was placed on 4 L by nasal cannula Associated Symptoms Associated Symptoms: Rhinorrhea, congestion, nonproductive cough Narrative Narrative: Patient is an 84-year-old woman. 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 She presents because of increasing shortness of breath. Symptoms started in February. She was admitted in February for acute on chronic congestive heart failure. She denies fever or chills. She endorses upper respiratory symptoms. She does have a slight sore throat. She has orthopnea. Her orthopnea is not worse than baseline. She denies PND. She denies chest discomfort of any type. She has no history of PE or DVT. She endorses chronic leg swelling with discoloration. She denies abdominal pain, nausea, vomit or diarrhea. Denies black or maroon- colored stool. She denies dysuria, frequency, urgency or hematuria. Prior similar symptoms: Yes Recent Illness/Hospitalization: Yes (February for acute on chronic heart failure) [facility] Medical History (HFpEF) heart failure with preserved ejection fraction Anticoagulated Asthma CHF exacerbation Congestive heart failure (CHF) IDDM (insulin dependent diabetes mellitus) Diabetes Rheumatoid arthritis On home oxygen therapy Low iron Insulin dependent diabetes mellitus Wears glasses Wears dentures Cancer History of steroid therapy History of renal disease High cholesterol Restless legs Injury of back Back pain Dietary restriction Shortness of breath on exertion History of pain when walking History of edema History of echocardiogram History of stress test Cardiology follow-up encounter History of CHF (congestive heart failure) History of atrial fibrillation Hyperlipidemia Overactive bladder Hypothyroidism Diabetes mellitus Hypertension Chronic kidney disease, stage 3b Former smoker Atrial fibrillation Hypertension Chronic anticoagulation Skin cancer, basal cell Actinic keratosis Skin lesion Skin cancer Chronic diastolic (congestive) heart failure Longstanding persistent atrial fibrillation Diastolic dysfunction Secondary pulmonary arterial hypertension Non-rheumatic tricuspid valve insufficiency Stage 2 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 Right hip pain Disc degeneration, lumbar Fatigue UTI (urinary tract infection) Hypoxia Hypersomnia COPD (chronic obstructive pulmonary disease) Obesity Tobacco dependence in remission CKD (chronic kidney disease) stage 3, GFR 30-59 ml/min Breast cancer Essential (primary) hypertension BMI 39.0-39.9,adult Erosion of bladder suspension mesh SHAKIRA (stress urinary incontinence, female) Home Medications ?Medication ?Instructions ?Recorded ?Last Taken ?Type diltiazem HCl 240 mg 240 mg PO DAILY heart #90 caps 04/26/23 03/15/24 Rx capsule,extended release 24 hr apixaban 2.5 mg tablet (Eliquis) 2.5 mg PO DAILY blood thinner 08/20/23 03/15/24 History sacubitril 49 mg-valsartan 51 mg 1 tab PO BID heart 10/21/23 03/15/24 History tablet (Entresto) rosuvastatin 40 mg tablet 40 mg PO QHS cholesterol 12/02/23 03/15/24 History insulin degludec 100 unit/mL (3 20 unit subcut BID diabetes 12/26/23 03/15/24 History mL) subcutaneous pen (Tresiba FlexTouch U-100 insulin) cholecalciferol (vitamin D3) 25 25 mcg PO DAILY supplement 01/20/24 03/15/24 History mcg (1,000 unit) capsule (Vitamin D3) furosemide 40 mg tablet 40 mg PO BIDLX #60 tabs 01/20/24 03/15/24 Rx glimepiride 1 mg tablet 1 mg PO DAILY 03/16/24 03/15/24 History metoprolol succinate 25 mg 25 mg PO QHS 03/16/24 03/15/24 History tablet,extended release 24 hr ferrous sulfate 325 mg (65 mg 325 mg PO QDAY 04/01/24 Unknown History iron) tablet (Feosol) lactobacillus combination no.9 4 4,000 mmu cells PO QDAY 04/01/24 Unknown History billion cell capsule (Adult 50 Plus Probiotic) levothyroxine 200 mcg tablet 250 mcg PO DAILY thyroid 04/01/24 Unknown History vibegron 75 mg tablet (Gemtesa) 75 mg PO QDAY 04/01/24 Unknown History Allergy/AdvReac Type Severity Reaction Status Date / Time Sulfa (Sulfonamide Allergy PEELING Verified 04/01/24 15:15 Antibiotics) RASH Family History Mother Colon cancer Cancer skin, bladder Daughter Cancer Thyroid Sister CAD (coronary artery disease) Surgical History History of surgery Hx of colonoscopy Hx of right cataract extraction Hx of left cataract extraction History of excision of lesion Hx of local excision of skin lesion History of cardioversion (03/20/19) History of hysterectomy History of partial mastectomy History of left heart catheterization (05/31/14) Social History household members: none housing: house current occupational status: retired Smoking Status: Former smoker how long ago did patient quit smokin, 2p/day second hand exposure: Yes alcohol intake: current alcohol intake frequency: holidays/special occasions only substance use type: does not use ROS ROS ED Constitutional Constitutional ED: Denies chills, fever(s), sweats or weight loss Eyes Eyes: Denies blurry vision or change in vision ENT ENT ED: Reports rhinorrhea and sore throat; Denies ear pain Cardiovascular Cardiovascular: Reports orthopnea and palpitations; Denies chest pain or paroxysmal nocturnal dyspnea Respiratory/Chest Respiratory/Chest: Reports cough, dyspnea, dyspnea on exertion and orthopnea; Denies paroxysmal nocturnal dyspnea or sputum Gastrointestinal Gastrointestinal: Denies abdominal pain, diarrhea, melena, nausea or vomiting Genitourinary Genitourinary ED: Denies dysuria, hematuria or urinary frequency Musculoskeletal Musculoskeletal: Denies arthralgias, back pain or myalgias Integumentary Reports rash and other Details: Patient has venous stasis dermatitis and bruising. Neurologic Neurologic: Reports weakness; Denies headache(s) or paresthesias Psychiatric Psychiatric: Reports anxiety and other Details: Upon arrival patient was anxious. Her pulse ox was in the 70s. ; Denies depression Endocrine Endocrinology: Denies cold intolerance or heat intolerance Hematologic/Lymphatic Hematologic/Lymphatic: Reports easy bruising EXAM Physical Exam Const Vital Signs: 04/05/24 11:00 04/05/24 11:17 04/05/24 11:18 Temperature 97 F L 97 F L Temperature Source Temporal Temporal Pulse Rate 121 H 117 H Respiratory Rate 47 H 30 H Respiratory Effort Short of Breath Labored Blood Pressure 189/67 H 160/79 H Blood Pressure Mean 107 106 Pulse Ox 96 97 Oxygen Delivery Method Nasal Cannula Nasal Cannula Nasal Cannula Oxygen Flow Rate (L/min) 5 4 4 04/05/24 11:35 04/05/24 11:35 04/05/24 11:55 Temperature Temperature Source Pulse Rate 104 H 123 H Respiratory Rate 28 H 28 H Respiratory Effort Blood Pressure Blood Pressure Mean Pulse Ox 98 Oxygen Delivery Method Nasal Cannula Oxygen Flow Rate (L/min) 4 04/05/24 11:57 04/05/24 11:57 Temperature 97 F L Temperature Source Temporal Pulse Rate 118 H Respiratory Rate 118 H 23 H Respiratory Effort Blood Pressure 166/66 H 166/66 H Blood Pressure Mean 99 99 Pulse Ox 95 Oxygen Delivery Method Nasal Cannula Oxygen Flow Rate (L/min) 4 Vital signs are remarkable for tachycardia, tachypnea and hypoxia on room air. Patient is chronically on 4 L by nasal cannula. When she arrived her breathing was labored and she was cyanotic. BMI is 43.2. Positive well nourished and well developed General Appearance ED: well developed and cyanotic; Negative for diaphoretic, NAD or pallor HEENT Reports moist mucous membranes HEENT Narrative: Head is atraumatic normocephalic. Ears normal. TMs normal. Nares patent. Posterior pharynx is normal. Eyes PERRL and EOMs intact bilaterally General Eye ED: Negative for pale conjunctiva or scleral icterus Neck no lymphadenopathy and supple Chest Wall inspection of chest normal and palpation of chest normal Resp No normal respiratory effort and No clear to auscultation bilaterally Resp Narrative: Patient has use of accessory muscles. Patient has decreased air movement with increased x-ray phase and high-pitched wheezes. She also has bilateral rales noted with decreased breath sounds left base compared to right. Cardio no murmurs Rate: tachycardic Rhythm: abnormal rhythm irregularly irregular GI normal to inspection, nondistended, normoactive bowel sounds, non-tender, non- distended and no masses GI Narrative: Due to body habitus unable to appreciate if patient has hepatosplenomegaly or pulsatile mass. Palpation: soft Back/Spine no CVA tenderness Extremity Extremity Narrative: Patient has venous stasis dermatitis of both lower extremities. Neuro oriented x3 and CN's II-XII intact bilaterally Sensorium / Orientation: alert Psych Mood & Affect: anxious Skin skin turgor normal Skin Narrative: Venous stasis dermatitis with pitting edema. General Skin Exam: Negative for jaundice or pallor MDM MDM MDM Narrative Medical decision making narrative: Differential diagnosis would include cardiac ischemia, exacerbation of chronic congestive heart failure, exacerbation of COPD with bronchospasm, wheezing may be due to heart failure. Also need to evaluate for pneumonia. Workup included EKG, chest x-ray which was portable because of her respiratory distress, troponin, BNP, CBC to assess white count differential and H&H, competence of metabolic panel to assess for endorgan dysfunction as well as lactate. History & Record Review Discussion w/independent historian: Patient Lab Data Attestation: I reviewed the patient's lab results. Lab results narrative: White count slightly elevated 11.1 thousand with slight shift. There is no bandemia. Patient has an H&H of 10.9 and 36.0 with normal indices. Patient H&H is slightly higher than previous. Her white count was 11,000. This is an insignificant increase. This may be due to stress. VBG was obtained and reveals chronic CO2 retention. pH is normal at 7.36. BUN and creatinine are 24 and 1.54 which is approximately patient's baseline. Estimated GFR is 34. Total bili, AST, ALT and alkaline phosphatase are normal and unchanged from prior. BNP is elevated at 457.8. Patient's albumin is slightly decreased at 2.9 and at baseline. Troponin was normal at 27. This is with days of symptoms. Labs: Laboratory Results - last 24 hr 04/05/24 04/05/24 11:06 11:10 WBC 11.1 H RBC 3.90 L Hgb 10.9 L Hct 36.0 L MCV 92.3 MCH 27.9 MCHC 30.3 L RDW Std Deviation 52.8 H RDW Coeff of Sudha 15.7 H Plt Count 253 MPV 10.1 Immature Gran % (Auto) 0.500 Neut % (Auto) 84.5 H Lymph % (Auto) 7.1 L [place] % (Auto) 6.6 Eos % (Auto) 1.0 Baso % (Auto) 0.3 Absolute Neuts (auto) 9.4 H Absolute Lymphs (auto) 0.79 L Nucleated RBC % 0 Sodium 143 Potassium 4.5 Chloride 108 H Carbon Dioxide 31.0 Anion Gap 4 L BUN 24 H Creatinine 1.54 H Estim Creat Clear Calc 36.66 Est GFR (MDRD) Af Amer 41 L Est GFR (MDRD) Non-Af 34 L BUN/Creatinine Ratio 15.6 Glucose 179 H Lactic Acid 1.2 Calcium 9.3 Total Bilirubin 0.50 AST 21 ALT 13 Alkaline Phosphatase 105 Troponin I High Sens 27 B-Natriuretic Peptide 457.8 H Total Protein 6.9 Albumin 2.9 L Globulin 4.0 Albumin/Globulin Ratio 0.7 L ABG Data ABG results: ABG 04/05/24 11:13 Specimen Type ALLY Sample Site Not entered VBG pH 7.36 VBG pO2 22 L VBG HCO3 31 H VBG Total CO2 33 VBG O2 Sat (Calc) 33 L VBG Base Excess 6 H POC Mix VBG pCO2 Pt Tmp 55.4 H O2 Delivery Device Not entered Radiography Chest X-Ray - ED: 1 View and Read by ED Physician (Single view chest x-ray reveals mild cardiomegaly. There is an effusion noted on the left which appears worse than x-ray obtained in February. There is obscuring the left hemidia phragm which may be due to atelectasis versus infiltrate. [place] appears normal. There is no cephalization that I appre) Diagnostic Testing: Clinical Impression(s) from Imaging Studies Chest X-Ray 04/05/24 11:35 IMPRESSION: Unresolved moderate bilateral lower lobe consolidation with small bilateral pleural effusions Electronically Signed: Alexi Rebolledo MD at 12:32 EST Reading Location ID and State: [address] [place] [address] , Service support , EKG Initial EKG: Attestation: I personally reviewed and interpreted this EKG as follows: Interpretation: Atrial Fibrillation (Rate is 126. There is evidence of right bundle branch block and left. Posterior fascicular block. QRS duration 140 ms. QT duration 3 and 74 ms. [place] to the right. There is no obvious ischemic changes noted.) Management Discussion w/another healthcare provider: Hospitalist (Patient discussed with Dr. Mccallum. He would like patient treated with azithromycin for COPD exacerbation. He is in agreement this probably does not represent pneumonia. She will be a full admission to PCU.) Treatment and Re-Evaluation :: Clinically patient appears fluid overloaded and does have an elevated BNP. She did improve after DuoNeb and albuterol. Since there is a persistent abnormality right lower lobe concerned this may represent atelectasis versus pneumonia. Will discuss case with hospitalist regarding antibiotics since her white count is not abnormal and this may represent congestive heart failure with bilateral pleural effusions and exacerbate COPD versus CHF and pneumonia with exacerbation of COPD. Since she is clinically fluid overloaded will treat with Lasix. Comments:: Patient is still tachycardic with a heart rate between 1 20-1 30 and respiratory rate between 29 and 33. Critical Care Time Critical Care Time: Yes Critical care time (excluding procedures): 30-74 minutes (31), Including time spent: (History, physical, documentation, bedside treatment, review of prior records, independent rotation of laboratory results and chest x-ray, treatment for heart failure COPD), Discussing w/Patient &/or Family/Edi Manager, Discussing w/Consultants (Documented under the hospitalist portion of the medical record) and Arranging Admission or Transfer Discharge Plan Triage Chief Complaint: Shortness of Breath ED Provider: Benny Vann Dx/Rx/DC Orders Clinical Impression: Acute exacerbation of chronic heart failure, Chronic anticoagulation, Essential (primary) hypertension, Chronic kidney disease, stage 3b, Hypothyroidism, Hyperl ipidemia, Chronic respiratory failure with hypoxia and hypercapnia, Acute exacerbation of chronic obstructive pulmonary disease, Acute bronchospasm, Atrial fibrillation with RVR Prescriptions: No Action diltiazem HCl 240 mg capsule,extended release 24hr 240 mg PO DAILY Qty: 90 3RF sacubitril-valsartan [Entresto] 49-51 mg tablet 1 tab PO BID ferrous sulfate [Feosol] 325 mg (65 mg iron) tablet 325 mg PO QDAY Gemtesa 75 mg tablet 75 mg PO QDAY Adult 50 Plus Probiotic 4 billion cell capsule 4,000 mmu cells PO QDAY Rx Instructions: administer with a meal rosuvastatin 40 mg tablet 40 mg PO QHS levothyroxine 200 mcg tablet 250 mcg PO DAILY furosemide 40 mg Tablet 40 mg PO BIDLX Qty: 60 0RF cholecalciferol (vitamin D3) [Vitamin D3] 25 mcg (1,000 unit) capsule 25 mcg PO DAILY glimepiride 1 mg tablet 1 mg PO DAILY metoprolol succinate 25 mg tablet extended release 24 hr 25 mg PO QHS Eliquis 2.5 mg tablet 2.5 mg PO DAILY insulin degludec [Tresiba FlexTouch U-100] 100 unit/mL (3 mL) insulin pen 20 unit subcut BID Primary Care Provider: Alexy Douglas Chi Referrals: Alexy Douglas Chi, MD [Primary Care Provider] - Print Language: [place] Disposition Disposition: Acute Care Hospital [facility] [place] [facility]
--- NOTE | 2024-04-05 12:52 | HP.PCM.HOS_ITS ---
[facility] - General General Date of Admission: 04/05/24 Date of Service: 04/05/24 Chief Complaint: Shortness of breath, dyspnea, cannot breathe for last 1 day HPI Narrative TONJA SÁNCHEZ, is a 84 F with history of heart failure and recurrent admission was recently discharged on March 18, 2024 came back with severe shortness of breath, dyspnea at rest, orthopnea and PND. She was 78% on 4 L of oxygen on ED arrival. Her symptoms started about 1 week ago and progressed to the point that yesterday she was dyspnea at rest. She woke up at night to catch breath. Bilateral chronic leg swelling with lymphedema got little worse. Denies chest pain pressure or tightness. Uses 4-5 pillows/sleeps on recliner. No fever or acute sick contact. Occasional cough but no sputum production or URI symptoms. On 4 L of home oxygen. ED vitals showed she was requiring 5 L of oxygen, and respiratory rate 30 to 47/min, tachycardia. Chest x-ray and EKG reviewed discussed with assessment and plan. [facility] Medical History (HFpEF) heart failure with preserved ejection fraction Anticoagulated Asthma CHF exacerbation Congestive heart failure (CHF) IDDM (insulin dependent diabetes mellitus) Diabetes Rheumatoid arthritis On home oxygen therapy Low iron Insulin dependent diabetes mellitus Wears glasses Wears dentures Cancer History of steroid therapy History of renal disease High cholesterol Restless legs Injury of back Back pain Dietary restriction Shortness of breath on exertion History of pain when walking History of edema History of echocardiogram History of stress test Cardiology follow-up encounter History of CHF (congestive heart failure) History of atrial fibrillation Hyperlipidemia Overactive bladder Hypothyroidism Diabetes mellitus Hypertension Chronic kidney disease, stage 3b Former smoker Atrial fibrillation Hypertension Chronic anticoagulation Skin cancer, basal cell Actinic keratosis Skin lesion Skin cancer Chronic diastolic (congestive) heart failure Longstanding persistent atrial fibrillation Diastolic dysfunction Secondary pulmonary arterial hypertension Non-rheumatic tricuspid valve insufficiency Stage 2 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 Right hip pain Disc degeneration, lumbar Fatigue UTI (urinary tract infection) Hypoxia Hypersomnia COPD (chronic obstructive pulmonary disease) Obesity Tobacco dependence in remission CKD (chronic kidney disease) stage 3, GFR 30-59 ml/min Breast cancer Essential (primary) hypertension BMI 39.0-39.9,adult Erosion of bladder suspension mesh SHAKIRA (stress urinary incontinence, female) Home Medications ?Medication ?Instructions ?Recorded ?Last Taken ?Type diltiazem HCl 240 mg 240 mg PO DAILY heart #90 caps 04/26/23 03/15/24 Rx capsule,extended release 24 hr apixaban 2.5 mg tablet (Eliquis) 2.5 mg PO DAILY blood thinner 08/20/23 03/15/24 History sacubitril 49 mg-valsartan 51 mg 1 tab PO BID heart 10/21/23 03/15/24 History tablet (Entresto) rosuvastatin 40 mg tablet 40 mg PO QHS cholesterol 12/02/23 03/15/24 History insulin degludec 100 unit/mL (3 20 unit subcut BID diabetes 12/26/23 03/15/24 History mL) subcutaneous pen (Tresiba FlexTouch U-100 insulin) cholecalciferol (vitamin D3) 25 25 mcg PO DAILY supplement 01/20/24 03/15/24 History mcg (1,000 unit) capsule (Vitamin D3) furosemide 40 mg tablet 40 mg PO BIDLX swelling #60 tabs 01/20/24 03/15/24 Rx glimepiride 1 mg tablet 1 mg PO DAILY hyperglycemia 03/16/24 03/15/24 History metoprolol succinate 25 mg 25 mg PO QHS 03/16/24 03/15/24 History tablet,extended release 24 hr ferrous sulfate 325 mg (65 mg 325 mg PO QDAY anemia 04/01/24 Unknown History iron) tablet (Feosol) lactobacillus combination no.9 4 4,000 mmu cells PO QDAY 04/01/24 Unknown History billion cell capsule (Adult 50 Plus Probiotic) levothyroxine 200 mcg tablet 250 mcg PO DAILY thyroid 04/01/24 Unknown History vibegron 75 mg tablet (Gemtesa) 75 mg PO QDAY follow up needed 04/01/24 Unknown History potassium chloride 20 mEq 20 meq PO BID hypokalemia 04/05/24 Unknown History tablet,extended release(part/cryst) Allergy/AdvReac Type Severity Reaction Status Date / Time Sulfa (Sulfonamide Allergy PEELING Verified 04/01/24 15:15 Antibiotics) RASH Family History Mother Colon cancer Cancer skin, bladder Daughter Cancer Thyroid Sister CAD (coronary artery disease) Surgical History History of surgery Hx of colonoscopy Hx of right cataract extraction Hx of left cataract extraction History of excision of lesion Hx of local excision of skin lesion History of cardioversion (03/20/19) History of hysterectomy History of partial mastectomy History of left heart catheterization (05/31/14) Social History household members: none housing: house current occupational status: retired Smoking Status: Former smoker how long ago did patient quit smokin, 2p/day second hand exposure: Yes alcohol intake: current alcohol intake frequency: holidays/special occasions only substance use type: does not use ROS ROS Narrative Constitutional: Reports chronic progressive fatigue and weakness. No fever. HEENT: Reports systems reviewed and no addt'l complaints, except as documented Respiratory/Chest: History of COPD but denies change in pattern of cough, change in pattern of cough, sputum production. CVS: No chest pain/pressure Restyl described in HPI Gastrointestinal: Denies coffee ground emesis, hematemesis or vomiting Genitourinary: Denies burning urination or new urinary tract symptoms Musculoskeletal: Bilateral chronic lymphedema denies acute joint pain or limited range of motion. No acute injury Neurologic: Denies seizure-like symptoms. skin: No ulcer. No rash Endocrinology: Reports systems reviewed and no addt'l complaints, except as documented Hematologic/Lymphatic: Reports systems reviewed and no addt'l complaints, except as documented Rest 14 ROS are negative except as mentioned in HPI Vital Signs Vital Signs Vital Signs: 04/05/24 11:00 04/05/24 11:17 04/05/24 11:18 Temperature 97 F L 97 F L Temperature Source Temporal Temporal Pulse Rate 121 H 117 H Respiratory Rate 47 H 30 H Respiratory Effort Short of Breath Labored Blood Pressure 189/67 H 160/79 H Blood Pressure Mean 107 106 Pulse Ox 96 97 Oxygen Delivery Method Nasal Cannula Nasal Cannula Nasal Cannula Oxygen Flow Rate (L/min) 5 4 4 04/05/24 11:35 04/05/24 11:35 04/05/24 11:55 Temperature Temperature Source Pulse Rate 104 H 123 H Respiratory Rate 28 H 28 H Respiratory Effort Blood Pressure Blood Pressure Mean Pulse Ox 98 Oxygen Delivery Method Nasal Cannula Oxygen Flow Rate (L/min) 4 04/05/24 11:57 04/05/24 11:57 Temperature 97 F L Temperature Source Temporal Pulse Rate 118 H Respiratory Rate 118 H 23 H Respiratory Effort Blood Pressure 166/66 H 166/66 H Blood Pressure Mean 99 99 Pulse Ox 95 Oxygen Delivery Method Nasal Cannula Oxygen Flow Rate (L/min) 4 Weight Weight: 275 lb 9.245 oz Body Mass Index (BMI) 43.1 Physical Exam Narrative General: Alert, Oriented x3, Cooperative, very dyspneic. BMI 40.9 kg/m? HEENT: Atraumatic, PERRLA, EOMI, Normocephalic Oral: No Gingival or Mucosal Lesions/ Ulcerations Neck: Supple, bilateral JVP elevated, negative Carotid Bruits Chest wall/Lungs: Air entry diminished in in the right lung base more than left lung base. Right moderate pleural effusion. No crepitation. Cardiovascular: Sinus rhythm, Normal S1, Normal S2, systolic murmur Abdomen: Bowel Sounds Present, Soft, Non Tender, Non-Distended : No dysuria. No renal angle tenderness. No suprapubic tenderness. Extremities: 3+ bilateral LE edema, pitting and nonpitting mixed, Capillary Refill Less than 3 Seconds Skin: Chronic lower extremity swelling with hypertrophy and hyperplasia lymphedema Musculoskeletal: ROM restricted. No acute tenderness to Palpation of Joints or Extremities Neurological: Cranial nerves II-XII grossly intact, DTR 2+/4. No acute focal neurological deficit. Psych/Mental Status: Flat affect Results Lab / Micro Data 04/05/24 11:06 04/05/24 11:06 Labs: Laboratory Results - last 24 hr 04/05/24 11:06: WBC 11.1 H, RBC 3.90 L, Hgb 10.9 L, Hct 36.0 L, MCV 92.3, MCH 27.9, MCHC 30.3 L, RDW Std Deviation 52.8 H, RDW Coeff of Sudha 15.7 H, Plt Count 253, MPV 10.1, Immature Gran % (Auto) 0.500, Neut % (Auto) 84.5 H, Lymph % (Auto) 7.1 L, Isabela % (Auto) 6.6, Eos % (Auto) 1.0, Baso % (Auto) 0.3, Absolute Neuts (auto) 9.4 H, Absolute Lymphs (auto) 0.79 L, Nucleated RBC % 0, Sodium 143, Potassium 4.5, Chloride 108 H, Carbon Dioxide 31.0, Anion Gap 4 L, BUN 24 H , Creatinine 1.54 H, Estim Creat Clear Calc 36.66, Est GFR (MDRD) Af Amer 41 L, Est GFR (MDRD) Non-Af 34 L, BUN/Creatinine Ratio 15.6, Glucose 179 H, Calcium 9.3, Total Bilirubin 0.50, AST 21, ALT 13, Alkaline Phosphatase 105, Troponin I High Sens 27, B-Natriuretic Peptide 457.8 H, Total Protein 6.9, Albumin 2.9 L, Globulin 4.0, Albumin/Globulin Ratio 0.7 L 04/05/24 11:10: Lactic Acid 1.2 Micro: Microbiology 04/05/24 11:16 Mucosa - Nose SARS-CoV-2, Influenza & RSV (PCR) - Final ABG Data ABG results: ABG 04/05/24 11:13 Specimen Type ALLY Sample Site Not entered VBG pH 7.36 VBG pO2 22 L VBG HCO3 31 H VBG Total CO2 33 VBG O2 Sat (Calc) 33 L VBG Base Excess 6 H POC Mix VBG pCO2 Pt Tmp 55.4 H O2 Delivery Device Not entered Imaging Radiology Impression Chest X-Ray 04/05/24 11:35 IMPRESSION: Unresolved moderate bilateral lower lobe consolidation with small bilateral pleural effusions Electronically Signed: Alexi Rebolledo MD at 12:32 EST Reading Location ID and State: [address] [place] [address] , Service support , Assessment & Plan Assessment/Plan (1) Acute exacerbation of chronic heart failure: (2) Atrial fibrillation with RVR: PLAN: Plan This 84-year-old female is being admitted for acute on chronic shortness of breath/dyspnea at rest and leg swelling consistent with CHF exacerbation 1. Acute on chronic combined respiratory failure due to COPD exacerbation and COPD: Patient is being admitted in PCU. Patient has decreased respiratory drive/ventilatory failure. Airvo ordered. VBG shows 7.36, mixed pCO2 55.4 and bicarb 31. BMP bicarb is 31. [place] will be BiPAP but patient could not tolerate it. Xanax 0.25 mg 3 times daily as needed ordered. Currently on 4 L of oxygen but patient requires NIPPV 2. Acute on chronic HFpEF with moderate right and small left pleural effusion: BNP elevated. First troponin normal. Second troponin ordered. Started on furosemide 40 mg IV twice daily first dose given in the ED. Heart failure core measures including intake and output, fluid restriction less than 1500 mL, daily weight monitoring, kidney and electrolytes monitoring. Continue home medication diltiazem, Toprol, Entresto and rosuvastatin. Ultrasound-guided thoracocentesis ordered for tomorrow with lab analysis. Recent echo in December 2023 showed EF 65%, unable to assess diastolic dysfunction due to arrhythmia, severe pulmonary hypertension with 4+ tricuspid valve insufficiency, mild global RV systolic dysfunction and severe biatrial dilation. 3. A-fib with RVR: Twelve-lead EKG shows A-fib with RVR 126 bpm, QTc 541 ms, bifascicular block, RBBB + LPFB. Heart rate controlled. Hold for lethargy/sedation or respiratory rate less than 10/min albuterol inhaler 4. Stage II moderate COPD, daytime hypersomnia/obstructive sleep apnea/possible obesity hypoventilation syndrome: Patient was seen in pulmonary clinic on 04/01/2024. At that time, there was anticipation for thoracocentesis too. I do not think patient has clinical features of COPD exacerbation. On ipratropium every 6 hourly. 5.. Type 2 diabetes mellitus: A1c was 8.9% during last admission. Accu-Chek before meals and at bedtime with Humalog sliding scale coverage and hypoglycemia protocol. 6. CKD stage IIIb: Creatinine 1.54 on admission. Baseline 1.2-1.4. Does not meet the criteria for SABRINA. 7. Mixed chronic iron deficiency anemia and anemia of chronic disease: Patient baseline hemoglobin is about 10 g%. It is 10.9/36%. Platelet count 200 53K. On 03/17: Iron studies show low iron and iron saturation with low normal ferritin 42 but normal TIBC. 8. Acute on chronic debility: ? PT/OT/case management consult. 9. Morbid obesity: BMI 40.9 kg/m? along with comorbidities as mentioned above. Weight loss counseling done. [employer] consult. 10. Hypothyroidism: TSH was normal in January. Continue home Synthroid. Living will/advanced directive/end of life care: Patient does have living will or advanced directive. Her daughter is POA often. After discussion of benefits/risks procedures involved with full code, DNR CC arrest and DNR CC, the patient opted for full code but does not want to be dependent on ventilator or prolong her life if she does not get better. Patient does want artificial life support including intubation, tube feed, ventilator and/chest compression, central venous catheter, vasopressor and DC shock if needed Total time spent in [id number] encounter in discussion of advanced directive 17 minutes. 04/05/24 11:16 Mucosa - Nose SARS-CoV-2, Influenza & RSV (PCR) - Final Laboratory Results 04/05/24 11:06: WBC 11.1 H, RBC 3.90 L, Hgb 10.9 L, Hct 36.0 L, MCV 92.3, MCH 27.9, MCHC 30.3 L, RDW Std Deviation 52.8 H, RDW Coeff of Sudha 15.7 H, Plt Count 253, MPV 10.1, Immature Gran % (Auto) 0.500, Neut % (Auto) 84.5 H, Lymph % (Auto) 7.1 L, Isabela % (Auto) 6.6, Eos % (Auto) 1.0, Baso % (Auto) 0.3, Absolute Neuts (auto) 9.4 H, Absolute Lymphs (auto) 0.79 L, Nucleated RBC % 0, Sodium 143, Potassium 4.5, Chloride 108 H, Carbon Dioxide 31.0, Anion Gap 4 L, BUN 24 H , Creatinine 1.54 H, Estim Creat Clear Calc 36.66, Est GFR (MDRD) Af Amer 41 L, Est GFR (MDRD) Non-Af 34 L, BUN/Creatinine Ratio 15.6, Glucose 179 H, Calcium 9.3, Total Bilirubin 0.50, AST 21, ALT 13, Alkaline Phosphatase 105, Troponin I High Sens 27, B-Natriuretic Peptide 457.8 H, Total Protein 6.9, Albumin 2.9 L, Globulin 4.0, Albumin/Globulin Ratio 0.7 L 04/05/24 11:10: Lactic Acid 1.2 04/05/24 11:13: Specimen Type ALLY, Sample Site Not entered, VBG pH 7.36, VBG pO2 22 L, VBG HCO3 31 H, VBG Total CO2 33, VBG O2 Sat (Calc) 33 L, VBG Base Excess 6 H, POC Mix VBG pCO2 Pt Tmp 55.4 H, O2 Delivery Device Not entered Charges/Coding Visit Charges Inpatient E&M: 02786 Init Hosp L3 Procedures Hospitalists Procedures: 73395 Advncd Care Plan 30 Min
[2024-04-05] MEDS: Furosemide 40 MG/4 ML Vial IV ×2 (12:57→17:30)
[2024-04-05] MEDS: Azithromycin 250 MG Tablet 500 MG PO (12:58)
[2024-04-05 14:48] LABS: Troponin-I HS 23 pg/mL (3.0-54.0)
[2024-04-05] MEDS: dilTIAZem CD 240 MG Capsule PO (15:05)
[2024-04-05] MEDS: Acetaminophen 500 MG Tablet 1000 MG PO ×2 (15:05→21:27)
[2024-04-05] MEDS: Ipratropium 0.5 MG/2.5 ML SOLUTION INHALATION ×2 (15:24→19:21)
[2024-04-05 16:42] LABS: Troponin-I HS 22 pg/mL (3.0-54.0)
[2024-04-05] MEDS: Potassium Chloride Oral Tablet 20 MEQ PO (17:30)
[2024-04-05] MEDS: 0.9% Saline Lock 10 ML Syringe IV (17:30)
[2024-04-05 20:40] LABS: Troponin-I HS 21 pg/mL (3.0-54.0)
[2024-04-05] MEDS: Atorvastatin Calcium 80 MG Tablet PO (21:27)
[2024-04-05] MEDS: Insulin Glargine-YFGN 100 UNIT/ML Pen 20 UNIT SC (21:27)
[2024-04-05] MEDS: Senna/Docusate Sodium 1 Tablet 2 TABLET PO (21:27)
[2024-04-05] MEDS: Metoprolol(XL)Succ 25 MG Tablet PO (21:27)
[2024-04-05] MEDS: Insulin Lispro 100 UNIT/ML INSULN.PEN SC (21:28)
[2024-04-05] MEDS: ALPRAZolam 0.25 MG Tablet PO (21:33)
[2024-04-06] VITALS (19 sets, daily range): BP systolic 124–165; BP diastolic 62–113; PULSE 88–109; RESP 16–20; TEMP 36.2–36.8; O2SAT 92–98; BMI 41.8
[2024-04-06 00:37] LABS: Bedside Glucose 153 mg/dL (74-106)
--- NOTE | 2024-04-06 05:17 | NURSING ---
Pt daughter called for update. Update given at this time.
[2024-04-06 06:03] LABS: Absolute Lymphocyte Count 0.73 X10^3/uL (0.83-4.51); Absolute Neutrophil Count 6.2 X10^3/uL (2.0-7.7); Basophil# 0.04 X10^3/uL; Basophil% 0.5 % (0-1); Eosinophil# 0.14 X10^3/uL; Eosinophils% 1.8 % (0-5); Hemoglobin 8.9 g/dL (12.0-15.0); Lymphocyte # 0.73 X10^3/ul (0.83-4.51); Lymphocyte % 9.3 % (19-41); Mean Corp Hgb Conc 30.7 g/dL (32-36); Mean Corpuscular Hgb 28.4 pg (27.0-32.0); Mean Corpuscular Volume 92.7 fL (81-99); Mean Platelet Vol. 10.9 fl (6.2-12.0); Monocyte# 0.69 X10^3/uL; Monocyte% 8.8 % (0-10); NRBC Flagged by Analyzer 0 % (0-5); Neutrophil # 6.17 X10^3/uL (2.7-7.7); Platelet Count 226 K/mm3 (150-450); RBC Distribution Width CV 16.2 % (11.6-14.6); RBC Distribution Width SD 54.5 fl (35.1-43.9); Red Blood Count 3.13 M/mm3 (4.2-5.4); White Blood Count 7.8 K/mm3 (4.4-11.0)
[2024-04-06] MEDS: Levothyroxine 100 MCG Tablet 200 MCG PO (06:13)
[2024-04-06] MEDS: Acetaminophen 500 MG Tablet 1000 MG PO ×2 (06:13→22:50)
[2024-04-06 06:30] LABS: ALB/GLOB Ratio 0.8 RATIO (0.9-2.4); Anion Gap 5 (5-15); BUN 25 mg/dL (7-18); BUN/Creat Ratio 15.4 RATIO (10-20); Calcium,Total 8.8 mg/dL (8.5-10.1); Chloride 107 mmol/L (98-107); Creatinine, Serum 1.62 mg/dL (0.55-1.02); EST Glomerular Filtration Rate 32 mL/min (>60); Est Glom Filt Rate - Afr Amer 39 mL/min (>60); Estimated Creatinine Clearance 35.34 ml/min; Globulin 3.3 g/dL (2.2-4.2); Glucose 93 mg/dL (74-106); LDH 171 U/L (84-246); Phosphorus 3.6 mg/dL (2.5-4.9); Potassium 3.8 mmol/L (3.5-5.1); Protein, Total 5.8 g/dL (6.4-8.2); Sodium Level 141 mmol/L (136-145)
[2024-04-06] MEDS: Ipratropium 0.5 MG/2.5 ML SOLUTION INHALATION ×4 (06:37→20:12)
[2024-04-06 07:23] LABS: Bedside Glucose 84 mg/dL (74-106)
--- NOTE | 2024-04-06 07:31 | US_ITS ---
PROCEDURE: ULTRASOUND GUIDED THORACENTESIS. DATE: April 06, 2024. INDICATION: Female, 84 years old. Right pleural effusion PHYSICIAN: Huey Gomez M.D. PROCEDURE: The risks, benefits, and alternatives to the procedure were explained to the patient. The specific risks of bleeding, infection, and pneumothorax requiring chest tube insertion were discussed and accepted. Written informed consent was obtained. Ultrasonographic evaluation of the right lower pleural space was carried out. An adequate pocket was identified. The patient was placed in the sitting, upright position. The overlying skin was prepped and draped in sterile fashion. 1% lidocaine was administered subcutaneously for local anesthesia. Under ultrasound guidance, a 5 Cameroonian thoracentesis needle/catheter system was advanced into the right posterior lower pleural fluid collection. Approximately 870 mL of leigh-colored fluid was drained. The catheter was removed, and a sterile dressing was applied. A specimen was collected and sent to the laboratory for analysis, as requested by the referring clinician. The patient tolerated the procedure well. A chest x-ray was ordered. US/Thoracentesis W US IMPRESSION: Ultrasound-guided right thoracentesis. Electronically Signed: Huey Gomez MD at 13:44 EST ,
[2024-04-06] MEDS: Potassium Chloride Oral Tablet 20 MEQ PO ×2 (08:22→16:33)
--- NOTE | 2024-04-06 10:24 | PN.HOSP_ITS ---
Reason for Visit Reason for Visit: Diagnoses Unspecified atrial fibrillation (04/05/24) Heart failure, unspecified (04/05/24) Objective Data Objective Data Vital Signs: Vital Signs Temp Pulse Resp BP Pulse Ox O2 Del Method O2 Flow Rate 98.2 F 106 H 18 124/75 H 92 Airvo 40 04/06/24 03:20 04/06/24 10:13 04/06/24 10:13 04/06/24 03:20 04/06/24 10:13 04/06/24 08:26 04/06/24 08:26 FiO2 50 04/06/24 10:13 Oxygen Flow Rate (L/min) 40 Oxygen Delivery Method Airvo Weight: 274 lb 11.135 oz Body Mass Index (BMI) 41.8 Intake & Output: Intake and Output for Last 24 Hours 04/04/24 04/05/24 04/06/24 23:59 23:59 23:59 Intake Total 520 / 760 360 / 360 Output Total 700 / 1550 1250 / 1250 Balance -180 / -790 -890 / -890 Lab / Micro Data 04/06/24 04:59 04/06/24 04:59 Labs: Laboratory Results - last 24 hr 04/05/24 11:06: WBC 11.1 H, RBC 3.90 L, Hgb 10.9 L, Hct 36.0 L, MCV 92.3, MCH 27.9, MCHC 30.3 L, RDW Std Deviation 52.8 H, RDW Coeff of Sudha 15.7 H, Plt Count 253, MPV 10.1, Immature Gran % (Auto) 0.500, Neut % (Auto) 84.5 H, Lymph % (Auto) 7.1 L, Placer % (Auto) 6.6, Eos % (Auto) 1.0, Baso % (Auto) 0.3, Absolute Neuts (auto) 9.4 H, Absolute Lymphs (auto) 0.79 L, Nucleated RBC % 0, Sodium 143, Potassium 4.5, Chloride 108 H, Carbon Dioxide 31.0, Anion Gap 4 L, BUN 24 H , Creatinine 1.54 H, Estim Creat Clear Calc 36.66, Est GFR (MDRD) Af Amer 41 L, Est GFR (MDRD) Non-Af 34 L, BUN/Creatinine Ratio 15.6, Glucose 179 H, Calcium 9.3, Total Bilirubin 0.50, AST 21, ALT 13, Alkaline Phosphatase 105, Troponin I High Sens 27, B-Natriuretic Peptide 457.8 H, Total Protein 6.9, Albumin 2.9 L, Globulin 4.0, Albumin/Globulin Ratio 0.7 L 04/05/24 11:10: Lactic Acid 1.2 04/05/24 14:16: Troponin I High Sens 23 04/05/24 16:15: Troponin I High Sens 22 04/05/24 20:02: Troponin I High Sens 21 04/05/24 21:25: POC Glucose 153 H 04/06/24 04:59: WBC 7.8, RBC 3.13 L, Hgb 8.9 L, Hct 29.0 L, MCV 92.7, MCH 28.4, MCHC 30.7 L, RDW Std Deviation 54.5 H, RDW Coeff of Sudha 16.2 H, Plt Count 226, MPV 10.9, Immature Gran % (Auto) 0.600, Neut % (Auto) 79.0 H, Lymph % (Auto) 9.3 L, Placer % (Auto) 8.8, Eos % (Auto) 1.8, Baso % (Auto) 0.5, Absolute Neuts (auto) 6.2, Absolute Lymphs (auto) 0.73 L, Nucleated RBC % 0, Sodium 141, Potassium 3.8, Chloride 107, Carbon Dioxide 29.0, Anion Gap 5, BUN 25 H, Creatinine 1.62 H , Estim Creat Clear Calc 35.34, Est GFR (MDRD) Af Amer 39 L, Est GFR (MDRD) Non- Af 32 L, BUN/Creatinine Ratio 15.4, Glucose 93, Calcium 8.8, Phosphorus 3.6, Magnesium 2.0, Lactate Dehydrogenase 171, Total Protein 5.8 L, Globulin 3.3, A lbumin/Globulin Ratio 0.8 L 04/06/24 06:12: POC Glucose 84 Micro: Microbiology 04/05/24 17:19 Urine, Random Legionella Antigen - Final 04/05/24 17:19 Urine, Random Streptococcus pneumoniae Antigen (M - Final 04/05/24 11:16 Mucosa - Nose SARS-CoV-2, Influenza & RSV (PCR) - Final ABG Data ABG results: ABG 04/05/24 11:13 Specimen Type ALLY Sample Site Not entered VBG pH 7.36 VBG pO2 22 L VBG HCO3 31 H VBG Total CO2 33 VBG O2 Sat (Calc) 33 L VBG Base Excess 6 H POC Mix VBG pCO2 Pt Tmp 55.4 H O2 Delivery Device Not entered Radiography Diagnostic Testing: Radiology Impression Chest X-Ray 04/05/24 11:35 IMPRESSION: Unresolved moderate bilateral lower lobe consolidation with small bilateral pleural effusions Electronically Signed: Alexi Rebolledo MD at 12:32 EST Reading Location ID and State: [facility] / [place] , Service support , Physical Exam Narrative Seen and examined. Patient still short of breath on Airvo. Wean down to 4 L. Plan for thoracocentesis Physical exam General: Alert, Oriented x3, Cooperative, very dyspneic. BMI 40.9 kg/m? HEENT: Atraumatic, PERRLA, EOMI, Normocephalic Oral: No Gingival or Mucosal Lesions/ Ulcerations Neck: Supple, bilateral JVP elevated, negative Carotid Bruits Chest wall/Lungs: Air entry diminished in in the right lung base more than left lung base. Right moderate pleural effusion. Right lung base coarse crepitation Cardiovascular: Sinus rhythm, Normal S1, Normal S2, systolic murmur Abdomen: Bowel Sounds Present, Soft, Non Tender, Non-Distended : No dysuria. No renal angle tenderness. No suprapubic tenderness. Extremities: 3+ bilateral LE edema, pitting and nonpitting mixed, Capillary Refill Less than 3 Seconds Skin: Chronic lower extremity swelling with hypertrophy and hyperplasia lymphedema Musculoskeletal: ROM restricted. No acute tenderness to Palpation of Joints or Extremities Neurological: Cranial nerves II-XII grossly intact, DTR 2+/4. No acute focal neurological deficit. Psych/Mental Status: Flat affect Assessment & Plan Assessment/Plan (1) Acute exacerbation of chronic heart failure: (2) Atrial fibrillation with RVR: PLAN: Plan This 84-year-old female is being admitted for acute on chronic shortness of breath/dyspnea at rest and leg swelling consistent with CHF exacerbation 1. Acute on chronic combined respiratory failure due to COPD exacerbation and COPD: Patient is being admitted in PCU. Patient has decreased respiratory drive/ventilatory failure. Airvo ordered. VBG shows 7.36, mixed pCO2 55.4 and bicarb 31. BMP bicarb is 31. [place] will be BiPAP but patient could not tolerate it. Xanax 0.25 mg 3 times daily as needed ordered. Currently on 4 L of oxygen but patient requires NIPPV 04/06: Patient is states that she wants to go home but she was still on Airvo in the morning and currently 4 L of oxygen. 2. Acute on chronic HFpEF with moderate right and small left pleural effusion: BNP elevated. First troponin normal. Second troponin ordered. Started on furosemide 40 mg IV twice daily first dose given in the ED. Heart failure core measures including intake and output, fluid restriction less than 1500 mL, daily weight monitoring, kidney and electrolytes monitoring. Continue home medication diltiazem, Toprol, Entresto and rosuvastatin. Ultrasound-guided thoracocentesis ordered for tomorrow with lab analysis. Recent echo in December 2023 showed EF 65%, unable to assess diastolic dysfunction due to arrhythmia, severe pulmonary hypertension with 4+ tricuspid valve insufficiency, mild global RV systolic dysfunction and severe biatrial dilation. 04/06: Lactic acid normal. Serial troponins are negative therefore ACS ruled out. Diuretic dose increased to furosemide 60 mg IV twice daily. Slight increase in creatinine from 1.54-1.62. Rest as mentioned above 3. A-fib with RVR: Twelve-lead EKG shows A-fib with RVR 126 bpm, QTc 541 ms, bifascicular block, RBBB + LPFB. Heart rate controlled. Hold for lethargy/sedation or respiratory rate less than 10/min albuterol inhaler 04/06 heart rate is better controlled 106/min 4. Stage II moderate COPD, daytime hypersomnia/obstructive sleep apnea/possible obesity hypoventilation syndrome: Patient was seen in pulmonary clinic on 04/01/2024. At that time, there was anticipation for thoracocentesis too. I do not think patient has clinical features of COPD exacerbation. On ipratropium every 6 hourly. 04/06: Possible mild COPD exacerbation along with CHF exacerbation: Does not have change in cough or sputum production but short of breath. IV Solu-Medrol started 5.. Type 2 diabetes mellitus: A1c was 8.9% during last admission. Accu-Chek before meals and at bedtime with Humalog sliding scale coverage and hypoglycemia protocol. 6. CKD stage IIIb: Creatinine 1.54 on admission. Baseline 1.2-1.4. Does not meet the criteria for SABRINA. 7. Mixed chronic iron deficiency anemia and anemia of chronic disease: Patient baseline hemoglobin is about 10 g%. It is 10.9/36%. Platelet count 200 53K. On 03/17: Iron studies show low iron and iron saturation with low normal ferritin 42 but normal TIBC. 8. Acute on chronic debility: ? PT/OT/case management consult. 9. Morbid obesity: BMI 40.9 kg/m? along with comorbidities as mentioned above. Weight loss counseling done. Summer Analyst consult. 10. Hypothyroidism: TSH was normal in January. Continue home Synthroid. Living will/advanced directive/end of life care: Patient does have living will or advanced directive. Her daughter is POA often. After discussion of benefits/risks procedures involved with full code, DNR CC arrest and DNR CC, the patient opted for full code but does not want to be dependent on ventilator or prolong her life if she does not get better. Patient does want artificial life support including intubation, tube feed, ventilator and/chest compression, central venous catheter, vasopressor and DC shock if needed Total time spent in [id number] encounter in discussion of advanced directive 17 minutes. Microbiology Past 72 Hours 04/05/24 17:19 Urine, Random Legionella Antigen - Final 04/05/24 17:19 Urine, Random Streptococcus pneumoniae Antigen (M - Final 04/05/24 11:16 Mucosa - Nose SARS-CoV-2, Influenza & RSV (PCR) - Final Laboratory Results 04/05/24 11:06: WBC 11.1 H, RBC 3.90 L, Hgb 10.9 L, Hct 36.0 L, MCV 92.3, MCH 27.9, MCHC 30.3 L, RDW Std Deviation 52.8 H, RDW Coeff of Sudha 15.7 H, Plt Count 253, MPV 10.1, Immature Gran % (Auto) 0.500, Neut % (Auto) 84.5 H, Lymph % (Auto) 7.1 L, Placer % (Auto) 6.6, Eos % (Auto) 1.0, Baso % (Auto) 0.3, Absolute Neuts (auto) 9.4 H, Absolute Lymphs (auto) 0.79 L, Nucleated RBC % 0, Sodium 143, Potassium 4.5, Chloride 108 H, Carbon Dioxide 31.0, Anion Gap 4 L, BUN 24 H , Creatinine 1.54 H, Estim Creat Clear Calc 36.66, Est GFR (MDRD) Af Amer 41 L, Est GFR (MDRD) Non-Af 34 L, BUN/Creatinine Ratio 15.6, Glucose 179 H, Calcium 9.3, Total Bilirubin 0.50, AST 21, ALT 13, Alkaline Phosphatase 105, Troponin I High Sens 27, B-Natriuretic Peptide 457.8 H, Total Protein 6.9, Albumin 2.9 L, Globulin 4.0, Albumin/Globulin Ratio 0.7 L 04/05/24 11:10: Lactic Acid 1.2 04/05/24 11:13: Specimen Type ALLY, Sample Site Not entered, VBG pH 7.36, VBG pO2 22 L, VBG HCO3 31 H, VBG Total CO2 33, VBG O2 Sat (Calc) 33 L, VBG Base Excess 6 H, POC Mix VBG pCO2 Pt Tmp 55.4 H, O2 Delivery Device Not entered 04/05/24 14:16: Troponin I High Sens 23 04/05/24 16:15: Troponin I High Sens 22 04/05/24 20:02: Troponin I High Sens 21 04/05/24 21:25: POC Glucose 153 H 04/06/24 04:59: WBC 7.8, RBC 3.13 L, Hgb 8.9 L, Hct 29.0 L, MCV 92.7, MCH 28.4, MCHC 30.7 L, RDW Std Deviation 54.5 H, RDW Coeff of Sudha 16.2 H, Plt Count 226, MPV 10.9, Immature Gran % (Auto) 0.600, Neut % (Auto) 79.0 H, Lymph % (Auto) 9.3 L, Placer % (Auto) 8.8, Eos % (Auto) 1.8, Baso % (Auto) 0.5, Absolute Neuts (auto) 6.2, Absolute Lymphs (auto) 0.73 L, Nucleated RBC % 0, Sodium 141, Potassium 3.8, Chloride 107, Carbon Dioxide 29.0, Anion Gap 5, BUN 25 H, Creatinine 1.62 H , Estim Creat Clear Calc 35.34, Est GFR (MDRD) Af Amer 39 L, Est GFR (MDRD) Non- Af 32 L, BUN/Creatinine Ratio 15.4, Glucose 93, Calcium 8.8, Phosphorus 3.6, Magnesium 2.0, Lactate Dehydrogenase 171, Total Protein 5.8 L, Globulin 3.3, A lbumin/Globulin Ratio 0.8 L 04/06/24 06:12: POC Glucose 84 Charges/Coding Visit Charges Inpatient E&M: 43387 Subs Hosp L2
[2024-04-06] MEDS: Insulin Glargine-YFGN 100 UNIT/ML Pen 20 UNIT SC ×2 (10:55→22:51)
[2024-04-06] MEDS: dilTIAZem CD 240 MG Capsule PO (10:56)
[2024-04-06] MEDS: Insulin Lispro 100 UNIT/ML INSULN.PEN SC ×3 (10:56→22:52)
[2024-04-06] MEDS: Vibegron 75 MG TABLET PO (10:57)
[2024-04-06] MEDS: Senna/Docusate Sodium 1 Tablet 2 TABLET PO ×2 (10:57→22:51)
[2024-04-06] MEDS: Cholecalciferol (VIT D3) 25 MCG TABLET (1,000 UNITS) PO (10:57)
[2024-04-06] MEDS: Ferrous Sulfate 325 MG Tablet PO (10:58)
[2024-04-06] MEDS: Azithromycin 250 MG Tablet 500 MG PO (11:06)
[2024-04-06 11:20] LABS: Bedside Glucose 161 mg/dL (74-106)
[2024-04-06] MEDS: 0.9% Saline Lock 10 ML Syringe IV ×3 (12:17→22:51)
[2024-04-06] MEDS: Lidocaine 2% (20 ml mdv) 20 ML Vial INFILT (13:00)
--- NOTE | 2024-04-06 13:00 | FLU_PTH ---
PATIENT: TONJA SÁNCHEZ LOC: [facility] U#:[id number] AGE/SX: 84/F ROOM: [facility] RE04/05/[address]: Dr. Raul Busby MD : 1940 BED: 1 DIS: 04/07/2024 SPEC #: [id number] RECD: 04/06/24 13:24 STATUS: RICHARD RELiborio #: [id number] HAMLET: 04/06/24 13:[address]: Raul Busby DEPT: CYTOLOGY RECD BY: Lorna Young ENTERED: 04/07/24 10:04 SP TYPE: Fluid OTHR DR: Dr. Alexy Douglas MD Tissues: THORACIC FLUID Procedures: Special Stain Group II Surgery Specimen Level IV Cytospin Fluid HEADER OPERATION: Right thoracentesis PRE-OP DIAGNOSIS: Right pleural effusion TISSUE SUBMITTED: Thoracentesis fluid for cytology DIAGNOSIS CYTOLOGY Thoracentesis fluid for cytology (cytospins and cellblock): Negative for malignant cells. See comment. mr 04/08/2024 COMMENT Please make reference to previous specimen [id number], [id number], [id number] thoracentesis fluid for cytology with diagnosis of negative for malignancy. Clinical correlation and appropriate follow up are necessary. CYTOLOGY STUDY Slides are reviewed. CYTOLOGY GROSS Received is 80 ml of light yellow-hazy fluid labeled with the patient's name and and designated per the requisition as Thoracentesis fluid. Submitted for cytology preparation including cell block. Mr 04/07/2024 TC:5 CPT: 32288,04973
--- NOTE | 2024-04-06 13:13 | RAD_ITS ---
STUDY: X-RAY CHEST REASON FOR EXAM: Female, 84 years old. Post thoracentesis TECHNIQUE: AP inspiration and expiration views. COMPARISON: Comparison is made with prior study dated April 05, 2024. FINDINGS: The patient is status post right thoracentesis. There is no evidence of pneumothorax. RAD/Chest Insp/Exp 2 View IMPRESSION: Status post right thoracentesis. No evidence of pneumothorax. Electronically Signed: Huey Gomez MD at 13:54 EST ,
[2024-04-06 13:48] LABS: Cytology, Body Fluid / CSF SEE PATHOLOGY REPORT
[2024-04-06 13:52] LABS: Body Fluid Mononuclear WBC # 0.258 10^3/uL; Body Fluid Mononuclear WBC % 58.8 %; Body Fluid Polynuclear WBC # 0.181 10^3/uL; Body Fluid Polynuclear WBC % 41.2 %; Body Fluid Total Cells Counted 0.487 10^3/ul; White Blood Count/Body Fluid 0.439 10^3/uL
[2024-04-06 14:28] LABS: Auto B Fluid Analyzer BKGD Ct COUNTS W/IN LIMITS (W/IN LIMITS)
[2024-04-06 14:29] LABS: Appearance/Body Fluid SL CLDY; Color/Body Fluid LT YEL; Red Cell Count/Body Fluid 846 /mm3; Source- Body Fluid THORACENTESIS
[2024-04-06 14:33] LABS: Glucose, Body Fluid 131 mg/dL (40-70); LDH,Body Fluid 69 Units/L (Not Establ.); Protein, Body Fluid 2.1 g/dL (Not Establ.)
[2024-04-06 14:41] LABS: Lymphocytes 17 %; Macrophages 32 %; Mesothelial Cells 1 %; Monocytes 1 %; Neutrophil (Segs) 49 %
[2024-04-06 14:42] LABS: Body Fluid QC Type(s) BF1
[2024-04-06 16:25] LABS: Bedside Glucose 210 mg/dL (74-106)
[2024-04-06] MEDS: Furosemide 40 MG/4 ML Vial 60 MG IV (18:18)
[2024-04-06] MEDS: APIXABAN 2.5 MG TABLET (WCH) PO (22:50)
[2024-04-06] MEDS: Metoprolol(XL)Succ 25 MG Tablet PO (22:50)
[2024-04-06] MEDS: ALPRAZolam 0.25 MG Tablet PO (22:51)
[2024-04-06] MEDS: Atorvastatin Calcium 80 MG Tablet PO (22:53)
[2024-04-06 23:20] LABS: Bedside Glucose 322 mg/dL (74-106)
[2024-04-07] VITALS (7 sets, daily range): BP systolic 145–157; BP diastolic 89–93; PULSE 96–103; RESP 18–22; TEMP 36.5–36.7; O2SAT 93–97; BMI 41.8
[2024-04-07] MEDS: Nystatin Powder 15gm Bottle 1 APPLIC TOPICAL ×3 (02:55→11:58)
[2024-04-07] MEDS: Acetaminophen 500 MG Tablet 1000 MG PO (06:21)
[2024-04-07] MEDS: Levothyroxine 100 MCG Tablet 200 MCG PO (06:21)
[2024-04-07] MEDS: Insulin Lispro 100 UNIT/ML INSULN.PEN SC ×2 (06:22→11:58)
[2024-04-07 06:48] LABS: Bedside Glucose 271 mg/dL (74-106)
[2024-04-07 06:51] LABS: Anion Gap 5 (5-15); BUN 31 mg/dL (7-18); BUN/Creat Ratio 17.4 RATIO (10-20); Calcium,Total 9.4 mg/dL (8.5-10.1); Chloride 104 mmol/L (98-107); Creatinine, Serum 1.78 mg/dL (0.55-1.02); EST Glomerular Filtration Rate 29 mL/min (>60); Est Glom Filt Rate - Afr Amer 35 mL/min (>60); Estimated Creatinine Clearance 32.17 ml/min; Glucose 276 mg/dL (74-106); Potassium 4.1 mmol/L (3.5-5.1); Sodium Level 136 mmol/L (136-145)
[2024-04-07] MEDS: Ipratropium 0.5 MG/2.5 ML SOLUTION INHALATION ×2 (06:57→11:11)
[2024-04-07] MEDS: Potassium Chloride Oral Tablet 20 MEQ PO (09:27)
[2024-04-07] MEDS: dilTIAZem CD 240 MG Capsule PO (09:27)
[2024-04-07] MEDS: Cholecalciferol (VIT D3) 25 MCG TABLET (1,000 UNITS) PO (09:28)
[2024-04-07] MEDS: Vibegron 75 MG TABLET PO (09:28)
[2024-04-07] MEDS: Azithromycin 250 MG Tablet 500 MG PO (09:28)
[2024-04-07] MEDS: Insulin Glargine-YFGN 100 UNIT/ML Pen 20 UNIT SC (09:29)
--- NOTE | 2024-04-07 10:05 | PCM.DC ---
Discharge Instructions DC O2, CPAP, BIPAP needs RN Home O2 Qualification: Home O2 Qualification: Is the patient on home oxygen Yes 04/07/24 09:45 Home O2 Qualification: AT REST 1-Pulse Ox at rest 95 04/07/24 09:45 1- Oxygen flow rate at rest 4 04/07/24 09:45 Home O2 Qualification: WITH AMBULATION 1- Pulse Ox with ambulation 93 04/07/24 09:45 1- Oxygen Flow Rate with 4 04/07/24 09:45 ambulation Home O2 Discharge instructions: Yes Type of respiratory needs?: Oxygen Oxygen frequency: Continuous Continuous oxygen liters per minute: 4 L/m Follow Up Care Test Results: Test results from this visit will be discussed in further detail at your follow-up appointment, if applicable. Discharge Plan Admission Admit Date/Time: 04/05/24 12:50 Primary Reason for Your Visit: Right moderate pleural effusion, CHF exacerbation Attending Provider: Raul Busby Primary Care Provider: Alexy Douglas Chi Discharge Orders/Prescriptions Prescriptions: New acetaminophen 500 mg Tablet 1,000 mg PO Q8 PRN (Reason: arthiritis pain) Qty: 0 0RF Continued diltiazem HCl 240 mg capsule,extended release 24hr 240 mg PO DAILY Qty: 90 3RF sacubitril-valsartan [Entresto] 49-51 mg tablet 1 tab PO BID ferrous sulfate [Feosol] 325 mg (65 mg iron) tablet 325 mg PO QDAY Gemtesa 75 mg tablet 75 mg PO QDAY Adult 50 Plus Probiotic 4 billion cell capsule 4,000 mmu cells PO QDAY Rx Instructions: administer with a meal rosuvastatin 40 mg tablet 40 mg PO QHS levothyroxine 200 mcg tablet 250 mcg PO DAILY cholecalciferol (vitamin D3) [Vitamin D3] 25 mcg (1,000 unit) capsule 25 mcg PO DAILY glimepiride 1 mg tablet 1 mg PO DAILY potassium chloride 20 mEq tablet,ER particles/crystals 20 meq PO BID Eliquis 2.5 mg tablet 2.5 mg PO DAILY insulin degludec [Tresiba FlexTouch U-100] 100 unit/mL (3 mL) insulin pen 20 unit subcut BID Changed furosemide 40 mg Tablet 60 mg PO BIDLX 30 Days Qty: 60 0RF metoprolol succinate 25 mg tablet extended release 24 hr 50 mg PO QHS 30 Days Qty: 0 0RF Referrals / Follow Up: Alexy Douglas Chi, MD [Primary Care Provider] - Chad Woodard TRANSPORTER DRIVER, TRANSPORTER DRIVER-C [Med Staff - [facility]] - Within 2 Weeks Disposition Disposition (needs filled in before D/C Order can be placed): Home, Self Care
--- NOTE | 2024-04-07 11:07 | DS.PCM_ITS ---
Providers Date of Admission: 04/05/24 Date of Discharge: 04/07/24 Primary Care Physician: Dr. Alexy Douglas MD Reason For Visit: CHF EXACERBATION Diagnosis Discharge Diagnosis (1) Acute exacerbation of chronic heart failure: Status: Acute Code(s): I50.9 - Heart failure, unspecified (2) Atrial fibrillation with RVR: Status: Acute Code(s): I48.91 - Unspecified atrial fibrillation Plan This 84-year-old female is being admitted for acute on chronic shortness of breath/dyspnea at rest and leg swelling consistent with CHF exacerbation 1. Acute on chronic combined respiratory failure due to COPD exacerbation and COPD: Patient is being admitted in PCU. Patient has decreased respiratory drive/ventilatory failure. Airvo ordered. VBG shows 7.36, mixed pCO2 55.4 and bicarb 31. BMP bicarb is 31. [place] will be BiPAP but patient could not tolerate it. Xanax 0.25 mg 3 times daily as needed ordered. Currently on 4 L of oxygen but patient requires NIPPV 04/06: Patient is states that she wants to go home but she was still on Airvo in the morning and currently 4 L of oxygen. 04/07: Patient on baseline 4 L of oxygen. She has been asking for discharge since admission. Advised to stay 1 more day but she said she cannot. 2. Acute on chronic HFpEF with moderate right and small left pleural effusion: BNP elevated. First troponin normal. Second troponin ordered. Started on furosemide 40 mg IV twice daily first dose given in the ED. Heart failure core measures including intake and output, fluid restriction less than 1500 mL, daily weight monitoring, kidney and electrolytes monitoring. Continue home medication diltiazem, Toprol, Entresto and rosuvastatin. Ultrasound-guided thoracocentesis ordered for tomorrow with lab analysis. Recent echo in December 2023 showed EF 65%, unable to assess diastolic dysfunction due to arrhythmia, severe pulmonary hypertension with 4+ tricuspid valve insufficiency, mild global RV systolic dysfunction and severe biatrial dilation. 04/06: Lactic acid normal. Serial troponins are negative therefore ACS ruled out. Diuretic dose increased to furosemide 60 mg IV twice daily. Slight increase in creatinine from 1.54-1.62. Rest as mentioned above 04/07: Thoracocentesis was done yesterday. 870 mL was taken out yesterday. As per lights criteria, it is transudate. Neutrophil 49%, lymphocyte 17%, monocyte 1%, macrophages 32%. Glucose 131. Gram stain and culture has been canceled unclear, send out to [facility]. 3. A-fib with RVR: Twelve-lead EKG shows A-fib with RVR 126 bpm, QTc 541 ms, bifascicular block, RBBB + LPFB. Heart rate controlled. Hold for lethargy/sedation or respiratory rate less than 10/min albuterol inhaler 04/06 heart rate is better controlled 106/min 04/07: Metoprolol succinate dose increased to 50 mg daily. 4. Stage II moderate COPD, daytime hypersomnia/obstructive sleep apnea/possible obesity hypoventilation syndrome: Patient was seen in pulmonary clinic on 04/01/2024. At that time, there was anticipation for thoracocentesis too. I do not think patient has clinical features of COPD exacerbation. On ipratropium every 6 hourly. 04/06: Possible mild COPD exacerbation along with CHF exacerbation: Does not have change in cough or sputum production but short of breath. IV Solu-Medrol started 5.. Type 2 diabetes mellitus: A1c was 8.9% during last admission. Accu-Chek before meals and at bedtime with Humalog sliding scale coverage and hypoglycemia protocol. 6. CKD stage IIIb: Creatinine 1.54 on admission. Baseline 1.2-1.4. Does not meet the criteria for SABRINA. 04/07 creatinine went up to 1.78 from 1.54. BUN 31. It seems patient achieved diuresis therefore Lasix dose decreased to 60 mg IV 1 dose now and then 60mg oral from tomorrow morning 7. Mixed chronic iron deficiency anemia and anemia of chronic disease: Patient baseline hemoglobin is about 10 g%. It is 10.9/36%. Platelet count 200 53K. On 03/17: Iron studies show low iron and iron saturation with low normal ferritin 42 but normal TIBC. 8. Acute on chronic debility: ? PT/OT/case management consult. 9. Morbid obesity: BMI 40.9 kg/m? along with comorbidities as mentioned above. Weight loss counseling done. Chemical Process Operator consult. 10. Hypothyroidism: TSH was normal in January. Continue home Synthroid. Living will/advanced directive/end of life care: Patient does have living will or advanced directive. Her daughter is POA often. After discussion of benefits/risks procedures involved with full code, DNR CC arrest and DNR CC, the patient opted for full code but does not want to be dependent on ventilator or prolong her life if she does not get better. Patient does want artificial life support including intubation, tube feed, ventilator and/chest compression, central venous catheter, vasopressor and DC shock if needed Discharge medication reconciliation done. Discharge follow-up instructions completed. Discharge process discussed with the patient and all questions were answered to patient's satisfaction. Follow with PCP in 1 to 2 weeks Total time spent, exact 35 minutes on discharge meds reconciliation, examination, coordination of care with nurses and ancillary staff, review of imaging and blood test and discussion with the patient on follow-up instructions. Medications at Discharge Home Medications diltiazem HCl 240 mg capsule,extended release 24 hr 240 mg PO DAILY heart #90 caps 04/26/23 apixaban 2.5 mg tablet (Eliquis) 2.5 mg PO DAILY blood thinner 08/20/23 sacubitril 49 mg-valsartan 51 mg tablet (Entresto) 1 tab PO BID heart 10/21/23 rosuvastatin 40 mg tablet 40 mg PO QHS cholesterol 12/02/23 insulin degludec 100 unit/mL (3 mL) subcutaneous pen (Tresiba FlexTouch U-100 insulin) 20 unit subcut BID diabetes 12/26/23 cholecalciferol (vitamin D3) 25 mcg (1,000 unit) capsule (Vitamin D3) 25 mcg PO DAILY supplement 01/20/24 glimepiride 1 mg tablet 1 mg PO DAILY hyperglycemia 03/16/24 ferrous sulfate 325 mg (65 mg iron) tablet (Feosol) 325 mg PO QDAY anemia 04/01/24 lactobacillus combination no.9 4 billion cell capsule (Adult 50 Plus Probiotic) 4,000 mmu cells PO QDAY 04/01/24 levothyroxine 200 mcg tablet 250 mcg PO DAILY thyroid 04/01/24 vibegron 75 mg tablet (Gemtesa) 75 mg PO QDAY follow up needed 04/01/24 potassium chloride 20 mEq tablet,extended release(part/cryst) 20 meq PO BID hypokalemia 04/05/24 acetaminophen 500 mg tablet 1,000 mg (2 x 500 mg) PO Q8 PRN arthiritis pain #0 tabs 04/07/24 furosemide 40 mg tablet 60 mg (1.5 x 40 mg) PO BIDLX swelling 30 days #60 tabs 04/07/24 metoprolol succinate 25 mg tablet,extended release 24 hr 50 mg (2 x 25 mg) PO QHS HR 30 days #0 tabs 04/07/24 Physical Exam Narrative Seen and examined. Shortness of breath is better. Patient is off Airvo Physical exam General: Alert, Oriented x3, Cooperative, very dyspneic. BMI 40.9 kg/m? HEENT: Atraumatic, PERRLA, EOMI, Normocephalic Oral: No Gingival or Mucosal Lesions/ Ulcerations Neck: Supple, bilateral JVP elevated, negative Carotid Bruits Chest wall/Lungs: Air entry diminished but equal in both lung bases. Mild coarse crepitations. Had 870 mL thoracocentesis yesterday Cardiovascular: Sinus rhythm, Normal S1, Normal S2, systolic murmur Abdomen: Bowel Sounds Present, Soft, Non Tender, Non-Distended : No dysuria. No renal angle tenderness. No suprapubic tenderness. Extremities: 3+ bilateral LE edema, pitting and nonpitting mixed, Capillary Refill Less than 3 Seconds Skin: Chronic lower extremity swelling with hypertrophy and hyperplasia lymphedema Musculoskeletal: ROM restricted. No acute tenderness to Palpation of Joints or Extremities Neurological: Cranial nerves II-XII grossly intact, DTR 2+/4. No acute focal neurological deficit. Psych/Mental Status: Flat affect Weight / BMI Weight Weight: 274 lb 11.135 oz Body Mass Index (BMI) 41.8 ABG / Lab / Microbiology Data 04/06/24 04:59 04/07/24 05:57 Laboratory: Laboratory Results - last 24 hr 04/06/24 10:53: POC Glucose 161 H 04/06/24 13:00: Fluid Source THORACENTESIS, Fluid Color LT YEL, Fluid Appearance SL CLDY, Fluid WBC 0.439, Fluid RBC 846, Fluid Tot Cell Count 0.487 H, Fld Polynuclear WBCs # 0.181, Fld Polynuclear WBCs % 41.2, Fluid Mononuclear WBCs 0.258, Fld Mononuclear WBCs % 58.8, Fluid Neutrophils 49, Fluid Lymphocytes 17, Fluid Monocytes 1, Fluid Macrophages 32, Fld Mesothelial Cells 1, Fl Pathologist Comment May follow, Fluid Glucose 131 H, Fluid Total Protein 2.1, Fluid LDH 69, Fluid Comment 2 SEE COMMENT 04/06/24 16:07: POC Glucose 210 H 04/06/24 22:49: POC Glucose 322 H 04/07/24 05:57: Sodium 136, Potassium 4.1, Chloride 104, Carbon Dioxide 27.0, Anion Gap 5, BUN 31 H, Creatinine 1.78 H, Estim Creat Clear Calc 32.17, Est GFR (MDRD) Af Amer 35 L, Est GFR (MDRD) Non-Af 29 L, BUN/Creatinine Ratio 17.4, G lucose 276 H, Calcium 9.4 04/07/24 06:19: POC Glucose 271 H Microbiology: Microbiology 04/05/24 17:19 Urine, Random Legionella Antigen - Final 04/05/24 17:19 Urine, Random Streptococcus pneumoniae Antigen (M - Final 04/05/24 11:16 Mucosa - Nose SARS-CoV-2, Influenza & RSV (PCR) - Final Radiography Diagnostic Testing: Radiology Impression Thoracentesis Ultrasound 04/06/24 07:31 IMPRESSION: Ultrasound-guided right thoracentesis. Electronically Signed: Huey Gomez MD at 13:44 EST , Chest X-Ray 04/06/24 13:13 IMPRESSION: Status post right thoracentesis. No evidence of pneumothorax. Electronically Signed: Huey Gomez MD at 13:54 EST , D/C Instructions DC O2, CPAP, BIPAP Needs RN Home O2 Qualification: Home O2 Qualification: Is the patient on home oxygen Yes 04/07/24 09:45 Home O2 Qualification: AT REST 1-Pulse Ox at rest 95 04/07/24 09:45 1- Oxygen flow rate at rest 4 04/07/24 09:45 Home O2 Qualification: WITH AMBULATION 1- Pulse Ox with ambulation 93 04/07/24 09:45 1- Oxygen Flow Rate with 4 04/07/24 09:45 ambulation PSN CPAP & BiPAP: BiPAP & CPAP Settings per PSN Mode AIRVO 04/06/24 10:13 Bipap Delivery Device Nasal Pillows 04/06/24 10:13 Fraction of Inspired Oxygen ( 50 04/06/24 10:13 FIO2) Total Flow Rate 40 04/06/24 10:13 Home O2 Discharge instructions: Yes Type of respiratory needs?: Oxygen Oxygen frequency: Continuous Continuous oxygen liters per minute: 4 L/m DC home with Oxygen: No Meaningful Use Info Meaningful Use Meaningful Use Diagnoses (Choose all that apply): CHF CHF JIMI/ARB ordered at discharge?: Yes Documented LVEF (%): 65 Ischemic Stroke Statin Dosing Therapy Reference: STATIN DOSE THERAPY REFERENCE: * Patients > 75 years receive moderate or high dose statin therapy. * Patients 75 years or YOUNGER should receive HIGH intensity statin dose unless contraindicated. You will be required to document reason for non-treatment if statin daily dose does not meet guidelines. HIGH DOSE STATIN THERAPY DAILY Atorvastatin > than or = to 40 mg Rosuvastatin > than or = to 20 mg Amlodipine + Atorvastatin > than or = to 2.5/40 mg Ezetimibe + Simvastatin 10/80 mg Simvastatin 80mg Discharge Plan Admission Admit Date/Time: 04/05/24 12:50 Primary Reason for Your Visit: Right moderate pleural effusion, CHF exacerbation Attending Provider: Raul Busby Primary Care Provider: Alexy Douglas Chi Discharge Orders/Prescriptions Prescriptions: New acetaminophen 500 mg Tablet 1,000 mg PO Q8 PRN (Reason: arthiritis pain) Qty: 0 0RF Continued diltiazem HCl 240 mg capsule,extended release 24hr 240 mg PO DAILY Qty: 90 3RF sacubitril-valsartan [Entresto] 49-51 mg tablet 1 tab PO BID ferrous sulfate [Feosol] 325 mg (65 mg iron) tablet 325 mg PO QDAY Gemtesa 75 mg tablet 75 mg PO QDAY Adult 50 Plus Probiotic 4 billion cell capsule 4,000 mmu cells PO QDAY Rx Instructions: administer with a meal rosuvastatin 40 mg tablet 40 mg PO QHS levothyroxine 200 mcg tablet 250 mcg PO DAILY cholecalciferol (vitamin D3) [Vitamin D3] 25 mcg (1,000 unit) capsule 25 mcg PO DAILY glimepiride 1 mg tablet 1 mg PO DAILY potassium chloride 20 mEq tablet,ER particles/crystals 20 meq PO BID Eliquis 2.5 mg tablet 2.5 mg PO DAILY insulin degludec [Tresiba FlexTouch U-100] 100 unit/mL (3 mL) insulin pen 20 unit subcut BID Changed furosemide 40 mg Tablet 60 mg PO BIDLX 30 Days Qty: 60 0RF metoprolol succinate 25 mg tablet extended release 24 hr 50 mg PO QHS 30 Days Qty: 0 0RF Referrals / Follow Up: Alexy Douglas Chi, MD [Primary Care Provider] - Chad Woodard NP, CONSTRUCTION WORKER-C [Med Staff - Adv Practice Prof] - Within 2 Weeks Disposition Disposition (needs filled in before D/C Order can be placed): Home, Self Care Charges/Coding Visit Charges Inpatient E&M: 75895 Disch Hosp >30min
--- NOTE | 2024-04-07 11:15 | PHA.DC.MR.R ---
Pharmacy [place] Med Reconciliation Pharmacy Service has performed discharge medication reconciliation for this patient. The patient's discharge medication list was reviewed for discrepancies and discrepancies were resolved. Medications at Discharge Home Medications diltiazem HCl 240 mg capsule,extended release 24 hr 240 mg PO DAILY heart #90 caps 04/26/23 apixaban 2.5 mg tablet (Eliquis) 2.5 mg PO DAILY blood thinner 08/20/23 sacubitril 49 mg-valsartan 51 mg tablet (Entresto) 1 tab PO BID heart 10/21/23 rosuvastatin 40 mg tablet 40 mg PO QHS cholesterol 12/02/23 insulin degludec 100 unit/mL (3 mL) subcutaneous pen (Tresiba FlexTouch U-100 insulin) 20 unit subcut BID diabetes 12/26/23 cholecalciferol (vitamin D3) 25 mcg (1,000 unit) capsule (Vitamin D3) 25 mcg PO DAILY supplement 01/20/24 glimepiride 1 mg tablet 1 mg PO DAILY hyperglycemia 03/16/24 ferrous sulfate 325 mg (65 mg iron) tablet (Feosol) 325 mg PO QDAY anemia 04/01/24 lactobacillus combination no.9 4 billion cell capsule (Adult 50 Plus Probiotic) 4,000 mmu cells PO QDAY 04/01/24 levothyroxine 200 mcg tablet 250 mcg PO DAILY thyroid 04/01/24 vibegron 75 mg tablet (Gemtesa) 75 mg PO QDAY follow up needed 04/01/24 potassium chloride 20 mEq tablet,extended release(part/cryst) 20 meq PO BID hypokalemia 04/05/24 acetaminophen 500 mg tablet 1,000 mg (2 x 500 mg) PO Q8 PRN arthiritis pain #0 tabs 04/07/24 furosemide 40 mg tablet 60 mg (1.5 x 40 mg) PO BIDLX swelling 30 days #60 tabs 04/07/24 metoprolol succinate 25 mg tablet,extended release 24 hr 50 mg (2 x 25 mg) PO QHS HR 30 days #0 tabs 04/07/24
--- NOTE | 2024-04-07 11:20 | CASEMGMT ---
FLETCHER UGARTE chart review: Patient was admitted 03/16/24-03/18/24 for CHF exacerbation. See previous readmission notes. Patient was discharged to home with referral to CCN, family support, and follow-up plans in place. Patient returned to [facility] ED for increased shortness or breath and was admitted for CHF exacerbation FLETCHER UGARTE Face to Face with patient for initial transition planning/care coordination assessment. FLETCHER UGARTE introduced self and role at [facility]. Patient lying in bed, alert and oriented. Patient willing to participate in assessment and is able to answer all questions appropriately. Care providers, pharmacy, and demographics verified. Strata: 4 PCP: [facility] Specialists: Bessy Galan STREETSWEEPER OPERATOR, purification supervisor; Mera, rotating equipment specialist; Satnam, scrape gatherer Preferred Pharmacy: [facility] Insurance: [employer] Prescription Benefit: yes Living Will/HPOA: yes, daughter Marleny Kinney LNOK: daughter, step son Living Arrangements: Patient lives in a 2 story home with 11 steps and railing to kitchen, patient is independent and able to ambulate stairs. Transportation: self, step son DME/HHC: Patient has shower chair, raised toilet, grab bars, walker, rollator, home oxygen through [facility] [place] at 4lpm. Patient has been to rehab unit in the past. Patient has had [facility] HHC. Patient wishes to discharge home. Patient declined CCN referral previously and states she does not want another referral. Patient declines HHC as she is not home bound. Patient states he had a meeting with palliative care and has an appt with STREETSWEEPER OPERATOR on 04/20/24. Patient declines additional services and resources. FLETCHER UGARTE educated patient on importance of following low sodium diet and weighing self daily. Patient states she is occasionally eats out. Patient states she weighs self daily and noticed weight gain and states she updated PCP, who instructed her to go to ED. Patient states he has no further needs or concerns at this time. CM to follow for discharge planning needs that may arise. Disposition Plan: Patient to discharge home with family support and follow-up plans in place. Maria Esther LARSON, RN, CM
[2024-04-07] MEDS: Furosemide 40 MG/4 ML Vial 60 MG IV (11:58)
[2024-04-07] MEDS: Ferrous Sulfate 325 MG Tablet PO (11:59)
[2024-04-07 12:27] LABS: Bedside Glucose 267 mg/dL (74-106)
[2024-04-07 13:16] LABS: Pathologist Comment/Body Fluid Reviewed
[2024-04-13 10:07] LABS: Amylase Body Fluid 36 U/L (.); pH, Body Fluid 11254 7.5 (Not Estab.)
== END 2024-04-07 13:35 | disposition home or self-care (01) | DRG 291 ==
LOC: ED 12:54 → PCU 13:03
PROVIDERS: Admitting Provider Internal Medicine; Emergency Provider Emergency Medicine; PCP Family Medicine Geriatric Medicine; Visit Provider Internal Medicine
DX: I13.0 Hypertensive heart and chronic kidney disease with heart failure and stage 1 through stage 4 chronic kidney disease, or unspecified chronic kidney disease (principal); J96.21 Acute and chronic respiratory failure with hypoxia; J96.22 Acute and chronic respiratory failure with hypercapnia; I50.33 Acute on chronic diastolic (congestive) heart failure; J44.1 Chronic obstructive pulmonary disease with (acute) exacerbation; E66.2 Morbid (severe) obesity with alveolar hypoventilation; Z68.41 Body mass index [BMI] 40.0-44.9, adult; I45.2 Bifascicular block; J90 Pleural effusion, not elsewhere classified; D63.8 Anemia in other chronic diseases classified elsewhere; E11.22 Type 2 diabetes mellitus with diabetic chronic kidney disease; D50.9 Iron deficiency anemia, unspecified; N18.32 Chronic kidney disease, stage 3b; E03.9 Hypothyroidism, unspecified; I48.91 Unspecified atrial fibrillation; Z79.4 Long term (current) use of insulin; J98.01 Acute bronchospasm; E78.5 Hyperlipidemia, unspecified; Z66 Do not resuscitate; Z86.16 Personal history of COVID-19; Z79.890 Hormone replacement therapy; Z90.710 Acquired absence of both cervix and uterus; Z79.84 Long term (current) use of oral hypoglycemic drugs; Z87.891 Personal history of nicotine dependence; Z79.01 Long term (current) use of anticoagulants
CPT/HCPCS: 32555; 36415; 71045; 71046; 80048; 80053; 82150; 82803; 82945; 82962; 83605; 83615; 83735; 83880; 83986; 84100; 84155; 84157; 84484; 85025; 87449; 87631; 88108; 88305; 88313; 89050; 93005; 94640; 94660; 94668; 94762; 97162; 97166; 97530; 97802; 99284; A4216; J1940

== ENCOUNTER → 2024-04-13 | Outpatient (CLI) | payer MEDICARE, OTHER, SELFPAY | END | disposition home or self-care (01) | LOC: POLAB3 15:35 | PROVIDERS: PCP Family Medicine Geriatric Medicine; Visit Provider Family Medicine Geriatric Medicine | DX: R68.83 Chills (without fever) (principal) | CPT/HCPCS: 87631 ==

== ENCOUNTER → 2024-04-20 | Outpatient (CLI) | payer MEDICARE, OTHER, SELFPAY ==
--- NOTE | 2024-04-20 13:09 | US_ITS ---
PROCEDURE: ULTRASOUND RIGHT CHEST REASON FOR EXAM: Right pleural effusion. TECHNIQUE: Real-time imaging of the right chest. COMPARISON: CTA chest dated 03/16/2024. FINDINGS: Small loculated area of pleural fluid. No other significant findings. US/Chest IMPRESSION: Small loculated area of right pleural fluid. Reading Location: [facility]
[2024-04-20 14:00] VITALS: BP 186/90; PULSE 105; RESP 18; TEMP 36.1; O2SAT 98
== END | disposition home or self-care (01) ==
LOC: US 13:08
PROVIDERS: PCP Family Medicine Geriatric Medicine; Referring Provider Nurse Practitioner Acute Care; Visit Provider Nurse Practitioner Acute Care
DX: J90 Pleural effusion, not elsewhere classified (principal); Z79.01 Long term (current) use of anticoagulants
CPT/HCPCS: 76604

== ENCOUNTER → 2024-04-22 | Outpatient (CLI) | payer MEDICARE, OTHER, SELFPAY | END | disposition home or self-care (01) | LOC: POLAB3 17:04 | PROVIDERS: PCP Family Medicine Geriatric Medicine; Visit Provider Family Medicine Geriatric Medicine | DX: R68.83 Chills (without fever) (principal) | CPT/HCPCS: 87631 ==

== ENCOUNTER → 2024-04-24 | Outpatient (CLI) | payer MEDICARE, OTHER, SELFPAY ==
--- NOTE | 2024-04-24 11:34 | US_ITS ---
EXAM: US Abdomen Limited, Right Upper Quadrant CLINICAL INDICATION: TECHNIQUE: Real-time ultrasound of the right upper quadrant with image documentation. COMPARISON: No relevant prior studies available. FINDINGS: FREE FLUID: Small amount of fluid is noted in the right chest. Is significant to drain. US/Abdomen Limited IMPRESSION: Small amount of fluid is noted in the right chest. Is significant to drain. Reading Location: [facility]
== END | disposition home or self-care (01) ==
LOC: US 11:32
PROVIDERS: PCP Family Medicine Geriatric Medicine; Referring Provider Nurse Practitioner Acute Care; Visit Provider Nurse Practitioner Acute Care
DX: J90 Pleural effusion, not elsewhere classified (principal)
CPT/HCPCS: 76705

== ENCOUNTER 2024-04-25 20:04 | Inpatient (IN) | payer MEDICARE, OTHER, SELFPAY ==
[2024-04-25] VITALS (11 sets, daily range): BP systolic 95–145; BP diastolic 59–84; PULSE 113–127; RESP 18–30; TEMP 37.2–38.3; O2SAT 94–99; BMI 41.1
--- NOTE | 2024-04-25 20:26 | EKG12_ITS ---
Test Reason : DYSRHYTHMIA Blood Pressure : */* mmHG Vent. Rate : 137 BPM Atrial Rate : * BPM P-R Int : * ms QRS Dur : 128 ms QT Int : 338 ms P-R-T Axes : * 135 -31 degrees QTcB Int : 510 ms Atrial fibrillation with rapid ventricular response Right bundle branch block T wave abnormality, consider inferior ischemia Abnormal ECG Confirmed by KATIE SELF, ISAÍAS ([id number]), non linear editor CHARITY NETTLES ([id number]) on 04/27/2024 6:34:48 AM Referred By: [facility] Confirmed By: ISAÍAS WILSON MD
--- NOTE | 2024-04-25 20:29 | ED.VIS.DYS ---
HPI History of Present Illness Chief Complaint: Shortness of Breath Narrative Narrative: 84-year-old female past medical history of atrial fibrillation, on Eliquis, chronic respiratory failure/CHF on 4 L of oxygen presents with increasing shortness of breath that she has had over the last few days. States her weight has been fluctuating as well. She is supposed to have a heart valve replacement although she does not know which 1. She is supposed to go for presurgical testing in [place] tomorrow and stay for a few days, then be discharged when her artificial valve is ready. She states that her night guard was the one that told her that that is where she could get a valve replacement. She presents with nausea and vomiting that started today as well as increasing shortness of breath. [facility] Medical History Chronic respiratory failure with hypoxia and hypercapnia (HFpEF) heart failure with preserved ejection fraction Anticoagulated Asthma CHF exacerbation Congestive heart failure (CHF) IDDM (insulin dependent diabetes mellitus) Diabetes Rheumatoid arthritis On home oxygen therapy Low iron Insulin dependent diabetes mellitus Wears glasses Wears dentures Cancer History of steroid therapy History of renal disease High cholesterol Restless legs Injury of back Back pain Dietary restriction Shortness of breath on exertion History of pain when walking History of edema History of echocardiogram History of stress test Cardiology follow-up encounter History of CHF (congestive heart failure) History of atrial fibrillation Hyperlipidemia Overactive bladder Hypothyroidism Diabetes mellitus Hypertension Chronic kidney disease, stage 3b Former smoker Atrial fibrillation Hypertension Chronic anticoagulation Skin cancer, basal cell Actinic keratosis Skin lesion Skin cancer Chronic diastolic (congestive) heart failure Longstanding persistent atrial fibrillation Diastolic dysfunction Secondary pulmonary arterial hypertension Non-rheumatic tricuspid valve insufficiency Stage 2 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 Right hip pain Disc degeneration, lumbar Fatigue UTI (urinary tract infection) Hypoxia Hypersomnia COPD (chronic obstructive pulmonary disease) Obesity Tobacco dependence in remission CKD (chronic kidney disease) stage 3, GFR 30-59 ml/min Breast cancer Essential (primary) hypertension BMI 39.0-39.9,adult Erosion of bladder suspension mesh SHAKIRA (stress urinary incontinence, female) Home Medications ?Medication ?Instructions ?Recorded ?Last Taken ?Type diltiazem HCl 240 mg 240 mg PO DAILY heart #90 caps 04/26/23 03/15/24 Rx capsule,extended release 24 hr apixaban 2.5 mg tablet (Eliquis) 2.5 mg PO DAILY blood thinner 08/20/23 03/15/24 History sacubitril 49 mg-valsartan 51 mg 1 tab PO BID heart 10/21/23 03/15/24 History tablet (Entresto) rosuvastatin 40 mg tablet 40 mg PO QHS cholesterol 12/02/23 03/15/24 History insulin degludec 100 unit/mL (3 20 unit subcut BID diabetes 12/26/23 03/15/24 History mL) subcutaneous pen (Tresiba FlexTouch U-100 insulin) cholecalciferol (vitamin D3) 25 25 mcg PO DAILY supplement 01/20/24 03/15/24 History mcg (1,000 unit) capsule (Vitamin D3) glimepiride 1 mg tablet 1 mg PO DAILY hyperglycemia 03/16/24 03/15/24 History ferrous sulfate 325 mg (65 mg 325 mg PO QDAY anemia 04/01/24 Unknown History iron) tablet (Feosol) lactobacillus combination no.9 4 4,000 mmu cells PO QDAY 04/01/24 Unknown History billion cell capsule (Adult 50 Plus Probiotic) levothyroxine 200 mcg tablet 250 mcg PO DAILY thyroid 04/01/24 Unknown History vibegron 75 mg tablet (Gemtesa) 75 mg PO QDAY follow up needed 04/01/24 Unknown History potassium chloride 20 mEq 20 meq PO DAILY hypokalemia 04/05/24 Unknown History tablet,extended release(part/cryst) acetaminophen 500 mg tablet 1,000 mg (2 x 500 mg) PO Q8 PRN 04/07/24 Unknown Rx arthiritis pain #0 tabs furosemide 40 mg tablet 40 mg PO Q12H swelling 04/25/24 Unknown History metoprolol tartrate 100 mg tablet 100 mg PO BID 04/25/24 Unknown History Allergy/AdvReac Type Severity Reaction Status Date / Time Sulfa (Sulfonamide Allergy PEELING Verified 04/25/24 20:05 Antibiotics) RASH Family History Mother Colon cancer Cancer skin, bladder Daughter Cancer Thyroid Sister CAD (coronary artery disease) Surgical History History of surgery Hx of colonoscopy Hx of right cataract extraction Hx of left cataract extraction History of excision of lesion Hx of local excision of skin lesion History of cardioversion (03/20/19) History of hysterectomy History of partial mastectomy History of left heart catheterization (05/31/14) Social History household members: none housing: house current occupational status: retired Smoking Status: Former smoker how long ago did patient quit smokin, 2p/day second hand exposure: Yes alcohol intake: current alcohol intake frequency: holidays/special occasions only substance use type: does not use ROS ROS ED ROS Narrative Constitutional: No fever, no chills. Fluctuating weight. HEENT: No sore throat. No neck pain. No rhinorrhea. Cardiovascular: No chest pain. No palpitations. No pedal edema. Respiratory: Occasional cough, positive shortness of breath. Abdominal: No abdominal pain. Positive nausea and vomiting Genitourinary: No dysuria. No hematuria. Musculoskeletal: No myalgias. No arthralgias. Neurologic: No headaches. No dizziness. No lightheadedness. Skin: No rash. No change in color. Psychiatric: No depression. No anxiety. EXAM Physical Exam Narrative Exam Narrative: Afebrile. Vital signs noted. HEENT examination is grossly unremarkable. Cardiovascular examination reveals an irregularly irregular tachycardia. Respiratory examination shows positive tachypnea with bibasilar rales. Abdomen is soft and nontender. Bilateral pedal edema, equal and symmetric. Neurological examination nonfocal and nonlateralizing. Const Vital Signs: 04/25/24 20:05 04/25/24 20:05 04/25/24 20:20 Temperature 99.4 F H Temperature Source Oral Pulse Rate 121 H 126 H Respiratory Rate 30 H 24 H Respiratory Effort Short of Breath Respiratory Depth Shallow Respiratory Pattern Tachypnea Blood Pressure 145/70 H 123/68 H Blood Pressure Mean 95 86 Pulse Ox 99 99 Oxygen Delivery Method Nasal Cannula Nasal Cannula Nasal Cannula Oxygen Flow Rate (L/min) 4 4 4 04/25/24 20:31 04/25/24 20:45 04/25/24 21:20 Temperature Temperature Source Pulse Rate 127 H Respiratory Rate 25 H Respiratory Effort Respiratory Depth Respiratory Pattern Blood Pressure 126/84 H Blood Pressure Mean 98 Pulse Ox 99 97 Oxygen Delivery Method Nasal Cannula Nasal Cannula Nasal Cannula Oxygen Flow Rate (L/min) 4 4 04/25/24 21:59 04/25/24 22:00 Temperature 101 F H 101 F H Temperature Source Axillary Axillary Pulse Rate 118 H Respiratory Rate 24 H Respiratory Effort Respiratory Depth Respiratory Pattern Blood Pressure 110/74 Blood Pressure Mean 86 Pulse Ox 97 Oxygen Delivery Method Nasal Cannula Oxygen Flow Rate (L/min) 4 MDM MDM MDM Narrative Medical decision making narrative: Differential diagnosis includes but not limited to congestive heart failure exacerbation versus pneumonia versus pneumothorax versus atrial fibrillation with RVR as a cause of her shortness of breath. Patient has vomited twice in the ED but was asking for p.o. ice chips. She will be given Zofran. EKG obtained and interpreted by myself independently which shows atrial fibrillation with rapid ventricular response at [address] changes. No STEMI. I reviewed her last echocardiogram and she had an ejection fraction of 65%. She will be given Cardizem as she takes this orally. This will be given in bolus dose. She has slightly elevated temperature of 99.4 so concern would also be for COVID or influenza given her nausea and vomiting. I reviewed her laboratory work and she has normal white count of 10.6 with hemoglobin 12.5, hematocrit 41.5, platelet count 243. Electrolyte panel shows chloride slightly elevated at 110 with BUN of 44 and creatinine 1.54. When compared to prior labs she has chronic kidney disease. Glucose abruptly elevated at 142. High-sensitivity troponin is 21. She did receive 1 dose of Zofran. However, on her EKG, she does have prolonged QTc so she was not ordered any more Zofran. She was tolerating p.o. ice chips. She will be given additional bolus of Cardizem 10 mg intravenously. She spiked a fever of 101 so lactic acid was ordered. Chest x-ray in 1 view interpreted by myself shows bilateral infiltrates which may be more CHF than infectious. However since she spiked a fever, she will be covered with IV antibiotics in the form of Rocephin, and doxycycline as she has a prolonged QTc. At this point in time, patient signed out to the oncoming physician, Dr. Colton Story to continue treatment for A-fib with RVR, and admit the patient for pneumonia. I reviewed her respiratory swabs and they are negative for COVID, flu, and RSV. History & Record Review Discussion w/independent historian: Patient Additional record(s) reviewed:: Prior labs Lab Data Attestation: I reviewed the patient's lab results. Labs: Laboratory Results - last 24 hr 04/25/24 20:15 WBC 10.6 RBC 4.54 Hgb 12.5 Hct 41.5 MCV 91.4 MCH 27.5 MCHC 30.1 L RDW Std Deviation 53.4 H RDW Coeff of Sudha 16.1 H Plt Count 243 MPV 11.4 Immature Gran % (Auto) 0.500 Neut % (Auto) 89.8 H Lymph % (Auto) 1.9 L Frio % (Auto) 6.6 Eos % (Auto) 1.0 Baso % (Auto) 0.2 Absolute Neuts (auto) 9.5 H Absolute Lymphs (auto) 0.20 L Nucleated RBC % 0 Sodium 141 Potassium 4.2 Chloride 110 H Carbon Dioxide 25.0 Anion Gap 7 BUN 44 H Creatinine 1.54 H Estim Creat Clear Calc 36.89 Est GFR (MDRD) Af Amer 41 L Est GFR (MDRD) Non-Af 34 L BUN/Creatinine Ratio 28.6 H Glucose 142 H Calcium 8.4 L Troponin I High Sens 21 Radiography Diagnostic Testing: Clinical Impression(s) from Imaging Studies Chest X-Ray 04/25/24 20:40 IMPRESSION: 1. Hazy bibasilar pulmonary opacities, possibly due to atelectasis or infiltrate. 2. Small bilateral pleural effusions with some loculation in the left side, stable from previous exams. Reading [facility] Discharge Plan Dx/Rx/DC Orders Clinical Impression: Pleural effusion, CHF (congestive heart failure), Atrial fibrillation with RVR, Nausea and vomiting Disposition Disposition: Acute Care Hospital [facility]
[2024-04-25] MEDS: Ondansetron 4 MG/2 ML Vial IV (20:36)
[2024-04-25] MEDS: dilTIAZem 25 MG/5 ML Vial 10 MG IV BOLUS ×2 (20:39→21:55)
--- NOTE | 2024-04-25 20:40 | RAD_ITS ---
PROCEDURE: CHEST 1 VIEW (PORTABLE) REASON FOR EXAM: Shortness of breath TECHNIQUE: Frontal view of the chest. COMPARISON: 03/16/2024 FINDINGS: Hazy bibasilar pulmonary opacities are present. There are small bilateral pleural effusions with some loculation of the effusion into the upper thorax in the left chest, which was also seen on previous exams. The cardiac silhouette is enlarged. No acute osseous or soft tissue abnormality. Chronic left-sided rib fractures are again noted. Surgical clips are noted in the right axilla. RAD/Chest 1 View (Portable) IMPRESSION: 1. Hazy bibasilar pulmonary opacities, possibly due to atelectasis or infiltrat e. 2. Small bilateral pleural effusions with some loculation in the left side, sta ble from previous exams. Reading Location: [facility]
[2024-04-25 20:54] LABS: Absolute Neutrophil Count 9.5 X10^3/uL (2.0-7.7); Basophil# 0.02 X10^3/uL; Basophil% 0.2 % (0-1); Eosinophil# 0.11 X10^3/uL; Hematocrit 41.5 % (37-47); Hemoglobin 12.5 g/dL (12.0-15.0); Lymphocyte % 1.9 % (19-41); Mean Corp Hgb Conc 30.1 g/dL (32-36); Mean Corpuscular Hgb 27.5 pg (27.0-32.0); Mean Corpuscular Volume 91.4 fL (81-99); Mean Platelet Vol. 11.4 fl (6.2-12.0); Monocyte% 6.6 % (0-10); NRBC Flagged by Analyzer 0 % (0-5); Neutrophil # 9.53 X10^3/uL (2.7-7.7); Neutrophil % 89.8 % (47-70); POSITIVE DIFFERENTIAL YES; Platelet Count 243 K/mm3 (150-450); RBC Distribution Width CV 16.1 % (11.6-14.6); RBC Distribution Width SD 53.4 fl (35.1-43.9); Red Blood Count 4.54 M/mm3 (4.2-5.4); White Blood Count 10.6 K/mm3 (4.4-11.0)
[2024-04-25 21:17] LABS: Anion Gap 7 (5-15); BUN 44 mg/dL (7-18); BUN/Creat Ratio 28.6 RATIO (10-20); Calcium,Total 8.4 mg/dL (8.5-10.1); Chloride 110 mmol/L (98-107); Creatinine, Serum 1.54 mg/dL (0.55-1.02); EST Glomerular Filtration Rate 34 mL/min (>60); Est Glom Filt Rate - Afr Amer 41 mL/min (>60); Estimated Creatinine Clearance 36.89 ml/min; Glucose 142 mg/dL (74-106); Potassium 4.2 mmol/L (3.5-5.1); Sodium Level 141 mmol/L (136-145); Troponin-I HS 21 pg/mL (3.0-54.0)
[2024-04-25 22:13] LABS: BNP,B-Type NATRIURETIC PEPTIDE 384.8 pg/mL (0-100)
[2024-04-25] MEDS: Ceftriaxone 2 GM in 0.9% Normal Saline (50mL MB+) 50 ML IV (22:24)
[2024-04-25] MEDS: Acetaminophen 325 MG Tablet 650 MG PO (22:30)
[2024-04-25] MEDS: Diltiazem 125 MG in Dextrose 5%-Water (100mL Bag) 100 ML IV (22:33)
[2024-04-25 22:59] LABS: Lactic Acid 1.6 mmol/L (0.4-1.9)
--- NOTE | 2024-04-25 23:06 | PCM.HP.STD ---
HPI - General General Date of Admission: 04/25/24 Date of Service: 04/25/24 Chief Complaint: N/V/D, Fever, cough, productive sputum. HPI Narrative The patient is an 84 y/o F w/ PMHx: Obesity, PAF, COPD/Asthma with Chronic Hypoxic Respiratory Failure (4L NC), HTN, HLD, HFpEF, RLS, IDDM, Chronic anemia/Fe deficiency anemia, Rheumatoid arthritis, Valvular Heart Disease, CKD stage III unclear subtype per GFR trending, Former tobacco use, Hypothyroidism, Hx Breast CA unclear type who presents to the [facility] ED on 04/25/24 with history of increasing dyspnea over the last 2 to 3 days with productive cough, dyspnea worse with exertion with fatigue as well as loose stools over the last 12 hours noted to be several bouts in addition to persistent nausea and occasional emesis prompting eventual ED evaluation to be cautious. Workup in the ED included T99.4, heart rate 121, BP 141/70, respiratory rate 30, 99% on 4 L nasal cannula with Tmax in the ED 101 and heart rate up into the 130s with most recent repeat vitals T98.9, heart rate 113, BP 95/77, respiratory rate 18, 95% on 4 L nasal cannula, CBC with WC 10.6, hemoglobin 12.5, platelet 243 with left shift and lymphopenia, CMP with chloride 110, BUN/creatinine 44/1.54, GFR 34, lactic acid 1.6, glucose 142, BNP 384.8, troponin 21, chest x-ray with hazy bibasilar pulmonary opacities as well as small bilateral pleural effusions with left-sided loculation which is stable from previous exam, EKG with atrial fibrillation with RVR with repeat EKGs with concern for prolonged QTc of note. In the ED patient ministered Tylenol 650 mg p.o. x 1, IV Rocephin and IV doxycycline given concerns for QTc, diltiazem a total of 20 mg IV bolus eventually placed on a Cardizem drip, Zofran 4 mg IV x 1 which has been administered previous EKG. [facility] Medical History Chronic respiratory failure with hypoxia and hypercapnia (HFpEF) heart failure with preserved ejection fraction Anticoagulated Asthma CHF exacerbation Congestive heart failure (CHF) IDDM (insulin dependent diabetes mellitus) Diabetes Rheumatoid arthritis On home oxygen therapy Low iron Insulin dependent diabetes mellitus Wears glasses Wears dentures Cancer History of steroid therapy History of renal disease High cholesterol Restless legs Injury of back Back pain Dietary restriction Shortness of breath on exertion History of pain when walking History of edema History of echocardiogram History of stress test Cardiology follow-up encounter History of CHF (congestive heart failure) History of atrial fibrillation Hyperlipidemia Overactive bladder Hypothyroidism Diabetes mellitus Hypertension Chronic kidney disease, stage 3b Former smoker Atrial fibrillation Hypertension Chronic anticoagulation Skin cancer, basal cell Actinic keratosis Skin lesion Skin cancer Chronic diastolic (congestive) heart failure Longstanding persistent atrial fibrillation Diastolic dysfunction Secondary pulmonary arterial hypertension Non-rheumatic tricuspid valve insufficiency Stage 2 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 Right hip pain Disc degeneration, lumbar Fatigue UTI (urinary tract infection) Hypoxia Hypersomnia COPD (chronic obstructive pulmonary disease) Obesity Tobacco dependence in remission CKD (chronic kidney disease) stage 3, GFR 30-59 ml/min Breast cancer Essential (primary) hypertension BMI 39.0-39.9,adult Erosion of bladder suspension mesh SHAKIRA (stress urinary incontinence, female) Home Medications ?Medication ?Instructions ?Recorded ?Last Taken ?Type diltiazem HCl 240 mg 240 mg PO DAILY heart #90 caps 04/26/23 04/24/24 Rx capsule,extended release 24 hr apixaban 2.5 mg tablet (Eliquis) 2.5 mg PO DAILY blood thinner 08/20/23 04/24/24 History sacubitril 49 mg-valsartan 51 mg 1 tab PO BID heart 10/21/23 04/24/24 History tablet (Entresto) rosuvastatin 40 mg tablet 40 mg PO QHS cholesterol 12/02/23 04/24/24 History insulin degludec 100 unit/mL (3 20 unit subcut BID diabetes 12/26/23 04/24/24 History mL) subcutaneous pen (Tresiba FlexTouch U-100 insulin) cholecalciferol (vitamin D3) 25 25 mcg PO DAILY supplement 01/20/24 04/24/24 History mcg (1,000 unit) capsule (Vitamin D3) glimepiride 1 mg tablet 1 mg PO DAILY hyperglycemia 03/16/24 04/24/24 History ferrous sulfate 325 mg (65 mg 325 mg PO QDAY anemia 04/01/24 04/24/24 History iron) tablet (Feosol) lactobacillus combination no.9 4 4,000 mmu cells PO QDAY probiotic 04/01/24 04/24/24 History billion cell capsule (Adult 50 Plus Probiotic) levothyroxine 200 mcg tablet 250 mcg PO DAILY thyroid 04/01/24 04/24/24 History vibegron 75 mg tablet (Gemtesa) 75 mg PO QDAY follow up needed 04/01/24 04/24/24 History potassium chloride 20 mEq 20 meq PO DAILY hypokalemia 04/05/24 04/24/24 History tablet,extended release(part/cryst) acetaminophen 500 mg tablet 1,000 mg (2 x 500 mg) PO Q8 PRN 04/07/24 Unknown Rx arthiritis pain #0 tabs furosemide 40 mg tablet 40 mg PO Q12H swelling 04/25/24 04/24/24 History metoprolol tartrate 100 mg tablet 100 mg PO BID heart 04/25/24 04/24/24 History Allergy/AdvReac Type Severity Reaction Status Date / Time Sulfa (Sulfonamide Allergy PEELING Verified 04/25/24 20:05 Antibiotics) RASH Family History Mother Colon cancer Cancer skin, bladder Daughter Cancer Thyroid Sister CAD (coronary artery disease) Surgical History History of surgery Hx of colonoscopy Hx of right cataract extraction Hx of left cataract extraction History of excision of lesion Hx of local excision of skin lesion History of cardioversion (03/20/19) History of hysterectomy History of partial mastectomy History of left heart catheterization (05/31/14) Social History household members: none housing: house current occupational status: retired Smoking Status: Former smoker how long ago did patient quit smokin, 2p/day second hand exposure: Yes alcohol intake: current alcohol intake frequency: holidays/special occasions only substance use type: does not use ROS ROS Narrative Admission Review of Systems: CONSTITUTIONAL: No weight loss, fever, chills, + weakness or fatigue. HEENT: Eyes: No visual loss, blurred vision, double vision or yellow sclerae. Ears, Nose, Throat: No hearing loss, sneezing, congestion, runny nose or sore throat. SKIN: No rash or itching, lesions, wounds. CARDIOVASCULAR: + Palpitations, chronic anemia. No chest pain, chest pressure or chest discomfort, orthopnea, syncopal events. RESPIRATORY: + Dyspnea, worse with exertion, productive sputum, occasional wheezing. No hemoptysis. GASTROINTESTINAL: + Decreased appetite/anorexia, nausea, vomiting, diarrhea, abdominal cramping. No melena, BRBPR. GENITOURINARY: No dysuria, frequency, urgency or retention. NEUROLOGICAL: No headache, dizziness, syncope, paralysis, ataxia, numbness or tingling in the extremities, focal weakness, change in bowel or bladder control, seizure. MUSCULOSKELETAL: + muscle, back pain, joint pain or stiffness. HEMATOLOGIC: + Chronic anemia, easy bleeding/bruising LYMPHATICS: No enlarged nodes. No history of splenectomy. PSYCHIATRIC: No history of depression or anxiety. ENDOCRINOLOGIC: No reports of sweating, cold or heat intolerance. No polyuria or polydipsia. ALLERGIES: No history of asthma, hives, eczema or rhinitis. Vital Signs Vital Signs Vital Signs: 04/25/24 20:05 04/25/24 20:05 04/25/24 20:20 Temperature 99.4 F H Temperature Source Oral Pulse Rate 121 H 126 H Respiratory Rate 30 H 24 H Respiratory Effort Short of Breath Respiratory Depth Shallow Respiratory Pattern Tachypnea Blood Pressure 145/70 H 123/68 H Blood Pressure Mean 95 86 Blood Pressure Source Pulse Ox 99 99 Oxygen Delivery Method Nasal Cannula Nasal Cannula Nasal Cannula Oxygen Flow Rate (L/min) 4 4 4 04/25/24 20:31 04/25/24 20:45 04/25/24 21:20 Temperature Temperature Source Pulse Rate 127 H Respiratory Rate 25 H Respiratory Effort Respiratory Depth Respiratory Pattern Blood Pressure 126/84 H Blood Pressure Mean 98 Blood Pressure Source Pulse Ox 99 97 Oxygen Delivery Method Nasal Cannula Nasal Cannula Nasal Cannula Oxygen Flow Rate (L/min) 4 4 04/25/24 21:59 04/25/24 22:00 04/25/24 22:33 Temperature 101 F H 101 F H Temperature Source Axillary Axillary Pulse Rate 118 H 124 H Respiratory Rate 24 H 24 H Respiratory Effort Respiratory Depth Respiratory Pattern Blood Pressure 110/74 127/76 H Blood Pressure Mean 86 93 Blood Pressure Source Monitor Pulse Ox 97 97 Oxygen Delivery Method Nasal Cannula Nasal Cannula Oxygen Flow Rate (L/min) 4 4 04/25/24 22:36 04/25/24 22:38 Temperature 101 F H 101 F H Temperature Source Axillary Pulse Rate 122 H 122 H Respiratory Rate 21 H 21 H Respiratory Effort Respiratory Depth Respiratory Pattern Blood Pressure 121/59 H 121/59 H Blood Pressure Mean 79 79 Blood Pressure Source Pulse Ox 98 99 Oxygen Delivery Method Nasal Cannula Oxygen Flow Rate (L/min) 4 Weight Weight: 270 lb 15.17 oz Body Mass Index (BMI) 41.1 Physical Exam Narrative Physical Examination: General: Awake, alert, oriented x 3 and cooperative, seated upright in the bed, fatigued, ill-appearing, mildly disheveled, stool dried on her lower extremities. Skin: Normal color, normal turgor, no icterus, no cyanosis except occasional stage ecchymoses, abrasion, bilateral lower extremity venous stasis skin changes. HEENT: AT/NC, EOMI, PERRLA, mildly dry MM, no carotid bruits or marked JVD noted; however, thickened neck makes evaluation difficult. Lungs: Diminished, greater bases, mildly increased respiratory rate but no distress, on chronic 4 L nasal cannula, no rales, ronchi or wheezing. Heart: Irregular irregular; no gallop, rub audible. Abdomen: Soft, obese, NTTP, ND, hyperactive BS, no appreciated HSM; however habitus makes evaluation difficult. Extremities: No cyanosis, no clubbing, pedal to proximal salazar 2+ chronic pitting edema stable she notes. Lower extremities are coated and dry stool. Neurological: Patient awake, alert, oriented as noted, cognitive function intact; pupils equally reactive to light and accommodation, cranial nerves gross normal, moving all 4 extremities, no focal deficits, strength severely globally decreased. Psychiatric: Affect appears flat, fatigued, ill-appearing, no acute evidence of depressive or anxiety feelings. Results Lab / Micro Data 04/25/24 20:15 04/25/24 20:15 Labs: Laboratory Results - last 24 hr 04/25/24 20:15: WBC 10.6, RBC 4.54, Hgb 12.5, Hct 41.5, MCV 91.4, MCH 27.5, MCHC 30.1 L, RDW Std Deviation 53.4 H, RDW Coeff of Sudha 16.1 H, Plt Count 243, MPV 11.4, Immature Gran % (Auto) 0.500, Neut % (Auto) 89.8 H, Lymph % (Auto) 1.9 L, [place] % (Auto) 6.6, Eos % (Auto) 1.0, Baso % (Auto) 0.2, Absolute Neuts (auto) 9.5 H, Absolute Lymphs (auto) 0.20 L, Nucleated RBC % 0, Sodium 141, Potassium 4.2, Chloride 110 H, Carbon Dioxide 25.0, Anion Gap 7, BUN 44 H, Creatinine 1.54 H, Estim Creat Clear Calc 36.89, Est GFR (MDRD) Af Amer 41 L, Est GFR (MDRD) Non-Af 34 L, BUN/Creatinine Ratio 28.6 H, Glucose 142 H, Calcium 8.4 L, Troponin I High Sens 21, B-Natriuretic Peptide 384.8 H 04/25/24 22:20: Lactic Acid 1.6 Micro: Microbiology 04/25/24 20:40 Mucosa - Nose SARS-CoV-2, Influenza & RSV (PCR) - Final Imaging Radiology Impression Chest X-Ray 04/25/24 20:40 IMPRESSION: 1. Hazy bibasilar pulmonary opacities, possibly due to atelectasis or infiltrate. 2. Small bilateral pleural effusions with some loculation in the left side, stable from previous exams. Reading Location: [facility] Assessment & Plan Assessment/Plan (1) Atrial fibrillation with RVR: (2) Pneumonia: PLAN: Plan The patient is an 84 y/o F w/ PMHx: Obesity, PAF, COPD/Asthma with Chronic Hypoxic Respiratory Failure (4L NC), HTN, HLD, HFpEF, RLS, IDDM, Chronic anemia/Fe deficiency anemia, Rheumatoid arthritis, Valvular Heart Disease, CKD stage III unclear subtype per GFR trending, Former tobacco use, Hypothyroidism, Hx Breast CA unclear type who presents to the [facility] ED on 04/25/24 with history of increasing dyspnea over the last 2 to 3 days with productive cough, dyspnea worse with exertion with fatigue as well as loose stools over the last 12 hours noted to be several bouts in addition to persistent nausea and occasional emesis prompting eventual ED evaluation to be cautious. #1. Chronic hypoxic respiratory failure with underlying bilateral pneumonia concerns with concern for possible gram-negative/gram-positive given recent prolonged admission: Will admit to PCU stepdown given usage of Cardizem drip as noted #2, will maintain on home oxygen supplementation, continue ATC budesonide, PRN albuterol, maintain on IV vancomycin and IV Merrem given prolonged QTc noted in the ED to be cautious however will repeat EKG in a.m. and if no further concerns will need to readjust IV antibiotic therapy, MRSA screen requested and will de-escalate as able, maintain HOB, IS parameters w/ pending sputum cultures, full respiratory viral panel and urine antigens. #2. Paroxsymal atrial fibrillation w/ RVR with noted prolonged QTc: EKG in ED w/ atrial fibrillation w/ RVR. Patient administered Cardizem bolus and eventually placed on drip in ED. Will maintain on telemetry, obtain cardiac enzyme serial set, obtain magnesium level, obtain TSH level. Will continue Cardizem drip in addition to home Eliquis regimen and overlap as able once appropriate with metoprolol once able to transition also back to patient's diltiazem home regimen. If intractable and difficulty controlling certainly low threshold to involve cardiology. Will repeat EKG in a.m. to assure QTc is improving and will avoid medications that may worsen this presentation with as noted ulceration of traditional antibiotic therapy in the interim. #3. N/V/D, suspected secondary to #1: Will judiciously hydrate given concern for possible high risk overload given A-fib RVR presentation with underlying heart failure preserved EF history, although do suspect likely GI symptoms are from recent pneumonia to be cautious will obtain c diff, stool cx, initiate loperamide if negative, will maintain on broad-spectrum antibiotic therapy as noted above, given QTc prolongation will place scopolamine patch for nausea control, very cautiously maintain on IV PPI given this can contribute as well but given her symptoms we will utilize, allow clears and advance once clinically improving. #4. Chronic COPD/asthma with chronic hypoxic respiratory failure: Complicates presentation as noted #1, Will maintain on home oxygen supplementation, maintain on ATC budesonide therapy, PRN albuterol, HOB, IS parameters. #5. HFpEF complicated by severe underlying pulmonary hypertension as well as valvular heart disease: Recent echocardiogram as noted, if fluids are necessary will very judiciously hydrate, will continue Eliquis, statin, Entresto, metoprolol, Lasix regimen. #6. Valvular heart disease: Patient with notable underlying disease with planned upcoming replacement, encourage follow-up for presurgical testing which will need to be rearranged given her current presentation and admission. 12/26/2023 echocardiogram with LVEF 65%, mild global RV systolic dysfunction, severe biatrial dilatation, moderate mitral annular calcification, aortic sclerosis with no stenosis, severe 4+ tricuspid valve insufficiency, severe pulmonary hypertension with PASP 60 mmHg. Encouraged follow-up outpatient for preoperative testing for valvular intervention in the future. #7. Chronic anemia/iron deficiency anemia: Admission hemoglobin 12.5, MCV 91.4, baseline hemoglobin has vacillated but primarily 9-10 range, continue iron supplementation, continue CBC trending. #8. Chronic Kidney Disease Stage III, unclear subtype per GFR trending: Admission BUN/Cr 44/1.54, GFR 34, baseline renal function 1.4-1.7, repeat BMP in AM. #9. Hypertension: Continue home regimen including metoprolol, Lasix, Entresto, IV Cardizem, PRN hydralazine. #10. Hyperlipidemia: Continue patient on statin therapy. #11. Diabetes mellitus type II: Hold oral home regimen, continue home insulin regimen with one half dosing as needed given n.p.o. status or hold if hypoglycemic concerns arise, allow clears until clinically improving given intractable nausea and emesis in the note above, maintain on accu checks w/ ISS. #12. History of breast cancer unclear type: Unclear specific breast cancer type/location status post partial mastectomy, reportedly in remission, encourage continued follow-up outpatient as previously arranged. #13. Obesity: Weight loss and lifestyle changes encouraged. #14. GERD: Will maintain very judiciously on IV PPI until nausea/emesis improving. #15. Rheumatoid arthritis: Per current list does not appear to be on chronic regimen, encourage continued outpatient follow-up with rheumatology as previously arranged. #16. Hypothyroidism: We will continue patient home levothyroxine regimen. #17. Former tobacco use: Encourage continued tobacco cessation. #18. DVT prophylaxis: Continue home Eliquis regimen. #19. CODE status: Patient MIGDALIA is her daughter she notes. Discussed CODE status at length including difference between FULL code, DNR-CCA and DNR-CC status. Following discussions about the differences in these status, requested Full Code status. Remarks that given her significant underlying history likely unfortunately if there was a cardiopulmonary event her prognosis would be poor and she notes understanding of this. Advanced Care Planning Face to Face Time: 16 minutes. Charges/Coding Visit Charges Inpatient E&M: 49529 Init Hosp L3 Procedures Hospitalists Procedures: 93436 Advncd Care Plan 30 Min
[2024-04-25] MEDS: Doxycycline 100 MG in 0.9% Normal Saline (250mL Bag) 250 ML 250 MG IV (23:30)
[2024-04-26] VITALS (23 sets, daily range): BP systolic 96–126; BP diastolic 49–67; PULSE 71–116; RESP 17–26; TEMP 36.6–37.1; O2SAT 89–97; BMI 39.1
[2024-04-26 00:04] LABS: Phosphorus 3.3 mg/dL (2.5-4.9)
[2024-04-26 00:11] LABS: Procalcitonin 0.16 ng/mL (0.00-0.09)
[2024-04-26 00:39] LABS: Troponin-I HS 26 pg/mL (3.0-54.0)
[2024-04-26 00:47] LABS: Bedside Glucose 102 mg/dL (74-106)
--- NOTE | 2024-04-26 01:00 | NURSING ---
Patient refused to have respiratory panel swab completed
[2024-04-26] MEDS: Pantoprazole Sodium 40 MG in 0.9% Normal Saline (100mL MB+) 100 ML 330 MG IV ×3 (01:09→20:55)
[2024-04-26] MEDS: Scopolamine 1mg/72hr Patch 1 PATCH TD (01:10)
[2024-04-26] MEDS: Vancomycin HCl 2,000 MG in 0.9% Normal Saline (500mL Bag) 500 ML 250 MG IV (01:37)
--- NOTE | 2024-04-26 01:52 | PCM.RX.CS ---
Consult Antibiotic Management Pharmacy has been consulted to manage selected antibiotic: Vancomycin Type of Intervention Type of Consult: New start Labs Labs: Sodium 141 mmol/L (136-145) 04/25/24 20:15 Potassium 4.2 mmol/L (3.5-5.1) 04/25/24 20:15 Chloride 110 mmol/L (98-107) H 04/25/24 20:15 Carbon Dioxide 25.0 mmol/L (21.0-32.0) 04/25/24 20:15 Anion Gap 7 (5-15) 04/25/24 20:15 BUN 44 mg/dL (7-18) H 04/25/24 20:15 Creatinine 1.54 mg/dL (0.55-1.02) H 04/25/24 20:15 Est GFR (MDRD) Af Amer 41 mL/min (>60) L 04/25/24 20:15 Est GFR (MDRD) Non-Af 34 mL/min (>60) L 04/25/24 20:15 BUN/Creatinine Ratio 28.6 RATIO (10-20) H 04/25/24 20:15 Glucose 142 mg/dL (74-106) H 04/25/24 20:15 Microbiology Microbiology: Microbiology 04/25/24 20:40 Mucosa - Nose SARS-CoV-2, Influenza & RSV (PCR) - Final Dosing Weight Weight used for dosin.8 kg Estimated Creatinine Clearance Estimated Creatinine Clearance: 36.89 Goal Trough Goal Trough: 15-20 mcg/mL Pharmacy Plan for Drug Dosing Pharmacy Plan for Drug Dosing: Pharmacy Service will continue to monitor and adjust dosing as required. LOADING DOSE OF 2GM GIVEN 04/26 @ 0137. START 1500MG Q24H AND DRAW TROUGH PRIOR TO 3RD DOSE Follow-Up Labs Follow-Up Labs: Trough: Vancomycin Date/Time Labs Ordered Labs to be done on [date and time ordered]: 04/28 @ 0100
[2024-04-26 02:42] LABS: Troponin-I HS 29 pg/mL (3.0-54.0)
--- NOTE | 2024-04-26 03:29 | CPS ---
04/26/24 @0015 patient refused nasal swab for respiratory panel at this time. RN aware
[2024-04-26] MEDS: Levothyroxine 100 MCG Tablet 200 MCG PO (05:52)
[2024-04-26] MEDS: Levothyroxine 50 MCG Tablet PO (05:52)
[2024-04-26 06:16] LABS: Bedside Glucose 102 mg/dL (74-106)
--- NOTE | 2024-04-26 07:00 | EKG12_ITS ---
Test Reason : Blood Pressure : */* mmHG Vent. Rate : 105 BPM Atrial Rate : * BPM P-R Int : * ms QRS Dur : 138 ms QT Int : 372 ms P-R-T Axes : * 107 -17 degrees QTcB Int : 491 ms Atrial fibrillation with rapid ventricular response Right bundle branch block Abnormal ECG When compared with ECG of 25-Apr-2024 20:16, MANUAL COMPARISON REQUIRED DATA IS UNCONFIRMED Confirmed by Subhash Malone ([id number]), technical writer and editor PAUL GALAN ([id number]) on 04/27/2024 1:46:18 PM Referred By: Confirmed By: Subhash Malone
[2024-04-26 07:11] LABS: Absolute Lymphocyte Count 0.27 X10^3/uL (0.83-4.51); Absolute Neutrophil Count 6.3 X10^3/uL (2.0-7.7); Basophil# 0.02 X10^3/uL; Basophil% 0.3 % (0-1); Eosinophil# 0.08 X10^3/uL; Eosinophils% 1.1 % (0-5); Hematocrit 34.4 % (37-47); Hemoglobin 9.9 g/dL (12.0-15.0); Lymphocyte # 0.27 X10^3/ul (0.83-4.51); Lymphocyte % 3.7 % (19-41); Mean Corp Hgb Conc 28.8 g/dL (32-36); Mean Corpuscular Hgb 27.3 pg (27.0-32.0); Mean Corpuscular Volume 94.8 fL (81-99); Mean Platelet Vol. 10.9 fl (6.2-12.0); Monocyte# 0.55 X10^3/uL; Monocyte% 7.5 % (0-10); NRBC Flagged by Analyzer 0 % (0-5); Neutrophil # 6.34 X10^3/uL (2.7-7.7); Neutrophil % 86.7 % (47-70); POSITIVE DIFFERENTIAL YES; Platelet Count 173 K/mm3 (150-450); RBC Distribution Width CV 16.4 % (11.6-14.6); RBC Distribution Width SD 56.3 fl (35.1-43.9); Red Blood Count 3.63 M/mm3 (4.2-5.4); White Blood Count 7.3 K/mm3 (4.4-11.0)
[2024-04-26] MEDS: Diltiazem 125 MG in Dextrose 5%-Water (100mL Bag) 100 ML 15 MG CONT INF (07:15)
--- NOTE | 2024-04-26 07:38 | PCM.PN.HOSP ---
Reason for Visit Reason for Visit: Diagnoses Unspecified atrial fibrillation (04/25/24) Pneumonia, unspecified organism (04/25/24) Subjective Subjective Patient is an 84-year-old lady with underlying history of COPD who presented with progressive shortness of breath cough nausea vomiting and diarrhea. An assessment of acute COPD exacerbation made admitted to monitored bed for subsequent management Objective Data Objective Data Vital Signs: Vital Signs Temp Pulse Resp BP Pulse Ox O2 Del Method O2 Flow Rate 98.7 F 102 H 23 H 114/57 L 92 Nasal Cannula 5 04/26/24 04:00 04/26/24 07:00 04/26/24 07:00 04/26/24 07:00 04/26/24 07:00 04/26/24 07:00 04/26/24 07:00 Oxygen Flow Rate (L/min) 5 Oxygen Delivery Method Nasal Cannula Weight: 116.8 kg Body Mass Index (BMI) 39.1 Intake & Output: Intake and Output for Last 24 Hours 04/24/24 04/25/24 04/26/24 23:59 23:59 23:59 Intake Total 58.75 / 58.75 1163.08 / 1163.08 Output Total 50 / 50 Balance 58.75 / 58.75 1113.08 / 1113.08 Lab / Micro Data 04/26/24 05:58 04/26/24 05:58 Labs: Laboratory Results - last 24 hr 04/25/24 20:15: WBC 10.6, RBC 4.54, Hgb 12.5, Hct 41.5, MCV 91.4, MCH 27.5, MCHC 30.1 L, RDW Std Deviation 53.4 H, RDW Coeff of Sudha 16.1 H, Plt Count 243, MPV 11.4, Immature Gran % (Auto) 0.500, Neut % (Auto) 89.8 H, Lymph % (Auto) 1.9 L, [place] % (Auto) 6.6, Eos % (Auto) 1.0, Baso % (Auto) 0.2, Absolute Neuts (auto) 9.5 H, Absolute Lymphs (auto) 0.20 L, Nucleated RBC % 0, Sodium 141, Potassium 4.2, Chloride 110 H, Carbon Dioxide 25.0, Anion Gap 7, BUN 44 H, Creatinine 1.54 H, Estim Creat Clear Calc 36.89, Est GFR (MDRD) Af Amer 41 L, Est GFR (MDRD) Non-Af 34 L, BUN/Creatinine Ratio 28.6 H, Glucose 142 H, Calcium 8.4 L, Phosphorus 3.3, Magnesium 2.0, Troponin I High Sens 21, B-Natriuretic Peptide 384.8 H, Procalcitonin 0.16 H 04/25/24 22:20: Lactic Acid 1.6 04/26/24 00:08: POC Glucose 102 04/26/24 00:16: Troponin I High Sens 26 04/26/24 02:17: Troponin I High Sens 29 04/26/24 05:50: POC Glucose 102 04/26/24 05:58: WBC 7.3, RBC 3.63 L, Hgb 9.9 L, Hct 34.4 L, MCV 94.8, MCH 27.3, MCHC 28.8 L, RDW Std Deviation 56.3 H, RDW Coeff of Sudha 16.4 H, Plt Count 173, MPV 10.9, Immature Gran % (Auto) 0.700, Neut % (Auto) 86.7 H, Lymph % (Auto) 3.7 L, [place] % (Auto) 7.5, Eos % (Auto) 1.1, Baso % (Auto) 0.3, Absolute Neuts (auto) 6.3, Absolute Lymphs (auto) 0.27 L, Nucleated RBC % 0 Micro: Microbiology 04/26/24 06:00 Urine, Clean Catch Legionella Antigen - Final 04/26/24 06:00 Urine, Clean Catch Streptococcus pneumoniae Antigen (M - Final 04/26/24 00:03 Nasal Secretion MRSA (PCR) - Final 04/25/24 20:40 Mucosa - Nose SARS-CoV-2, Influenza & RSV (PCR) - Final Radiography Diagnostic Testing: Radiology Impression Chest X-Ray 04/25/24 20:40 IMPRESSION: 1. Hazy bibasilar pulmonary opacities, possibly due to atelectasis or infiltrate. 2. Small bilateral pleural effusions with some loculation in the left side, stable from previous exams. Reading Location: [facility] Physical Exam Narrative Physical Examination: General: Awake, alert, oriented x 3 and cooperative, seated upright in the bed, fatigued, ill-appearing, mildly disheveled, stool dried on her lower extremities. Skin: Normal color, normal turgor, no icterus, no cyanosis except occasional stage ecchymoses, abrasion, bilateral lower extremity venous stasis skin changes. HEENT: AT/NC, EOMI, PERRLA, mildly dry MM, no carotid bruits or marked JVD noted; however, thickened neck makes evaluation difficult. Lungs: Diminished, greater bases, mildly increased respiratory rate but no distress, on chronic 4 L nasal cannula, no rales, ronchi or wheezing. Heart: Irregular irregular; no gallop, rub audible. Abdomen: Soft, obese, NTTP, ND, hyperactive BS, no appreciated HSM; however habitus makes evaluation difficult. Extremities: No cyanosis, no clubbing, pedal to proximal salazar 2+ chronic pitting edema stable she notes. Lower extremities are coated and dry stool. Neurological: Patient awake, alert, oriented as noted, cognitive function intact; pupils equally reactive to light and accommodation, cranial nerves gross normal, moving all 4 extremities, no focal deficits, strength severely globally decreased. Psychiatric: Affect appears flat, fatigued, ill-appearing, no acute evidence of depressive or anxiety feelings. Assessment & Plan Assessment/Plan (1) Atrial fibrillation with RVR: (2) Pneumonia: PLAN: Plan Patient is an 84-year-old lady with underlying history of COPD who presented with progressive shortness of breath cough nausea vomiting and diarrhea. An assessment of acute COPD exacerbation made admitted to monitored bed for subsequent management 1. Acute on chronic hypoxic and hypercapnic respiratory failure ? Secondary to COPD with acute exacerbation as well as pneumonia admitted to monitored bed with treatment of the underlying clinical etiology 2. COPD with acute exacerbation ? Patient started on bronchodilator treatment, inhaled corticosteroid as well as antibiotic therapy. Patient placed on oxygen titrated to keep saturation greater than 90. 3. Pneumonia - Suspected to be secondary to with multidrug-resistant organisms cultures sent. Patient placed on meropenem and vancomycin and placed on oxygen titrated to keep Pulse Ox greater than 90. Acute viral respiratory panel came back negative 4. Acute gastroenteritis ? Patient placed on dietary precautions enteric stool pathogen sent symptom management initiated 5. Paroxysmal A-fib with RVR ? Patient was started on Cardizem drip titrated to keep heart rate less than 100 patient is already on systemic anticoagulation with apixaban continued. Plan is to wean patient off on Cardizem drip and start on p.o. Cardizem 6. Chronic congestive heart failure present ejection fraction Echo obtained on 12/26/2023 demonstrated EF of 65% Mild global right ventricular systolic dysfunction.patient remains euvolemic 7. Valvular heart disease ? Patient has known history severe tricuspid valve insufficiency and has a planned valvular replacement pending 8. Severe pulmonary hypertension ? Complicating care echo from 12/26/2023 demonstrated .Severe pulmonary hypertension. Pulmonary artery systolic pressure estimated at 60 mmHg. 9 . Diabetes mellitus type 2 with complications including diabetic nephropathy - Patient is on oral agent held on admission placed on scheduled insulin with Accu-Cheks before meals and at bedtime with sliding scale coverage 10. Class II obesity with BMI of 39.2 ? Complicating care weight loss advised 11. Anemia ? Secondary to chronic disorder monitoring H&H and transfuse if patient becomes symptomatic or hemoglobin falls below 7 12.. History of right breast CA -status post mastectomy with subsequent neoadjuvant chemotherapy patient was managed on tamoxifen for 5 years 13. Chronic hypoxic respiratory failure ? Patient is on home oxygen 5 L baseline 14. Anemia ? Secondary to chronic disorder monitoring H&H and transfuse if patient becomes symptomatic or hemoglobin falls below 7 15. Chronic kidney disease stage III ? Kidney function at baseline 16. Hypertension -blood pressure controlled, home medications continued with dose adjustment as needed 17. Hypothyroidism -patient is on levothyroxine home dose continued 18. DVT prophylaxis ? Patient is on Charges/Coding Visit Charges Inpatient E&M: 049[address] [facility] L3
[2024-04-26] MEDS: Vibegron 75 MG TABLET PO (08:20)
[2024-04-26] MEDS: Furosemide 40 MG Tablet PO ×2 (08:20→16:17)
[2024-04-26] MEDS: SACUBITRIL/VALSARTAN 49-51 MG TABLET 1 EACH PO ×2 (08:21→21:21)
[2024-04-26] MEDS: Lactobacillis Acidophilus 1 CAP PO (08:22)
[2024-04-26] MEDS: APIXABAN 2.5 MG TABLET (WCH) PO (08:22)
[2024-04-26] MEDS: Metoprolol Tartrate 100 MG Tablet PO ×2 (08:23→21:21)
[2024-04-26 08:50] LABS: ALB/GLOB Ratio 0.8 RATIO (0.9-2.4); AST(SGOT) 9 U/L (15-37); Alanine Aminotransfer ALT/SGPT 15 U/L (13-56); Albumin, Serum 2.2 g/dL (3.2-5.0); Alkaline Phosphatase 59 U/L (45-117); Anion Gap 7 (5-15); BUN 44 mg/dL (7-18); BUN/Creat Ratio 28.2 RATIO (10-20); Chloride 114 mmol/L (98-107); Cholesterol 107 mg/dL (200); Creatinine, Serum 1.56 mg/dL (0.55-1.02); EST Glomerular Filtration Rate 34 mL/min (>60); Est Glom Filt Rate - Afr Amer 41 mL/min (>60); Globulin 2.9 g/dL (2.2-4.2); Glucose 100 mg/dL (74-106); High Density Lipoprotein 47 mg/dL; Potassium 4.3 mmol/L (3.5-5.1); Protein, Total 5.1 g/dL (6.4-8.2); Sodium Level 144 mmol/L (136-145); Triglycerides 133 mg/dL; Troponin-I HS 144 pg/mL (3.0-54.0); Very Low Density Lipoprotein 27 mg/dL (5-40)
[2024-04-26] MEDS: Meropenem 1 GM in 0.9% Normal Saline (100mL MB+) 100 ML IV ×2 (09:51→21:22)
[2024-04-26] MEDS: Potassium Chloride Oral Tablet 20 MEQ PO (09:51)
[2024-04-26] MEDS: Insulin Glargine-YFGN 100 UNIT/ML Pen 20 UNIT SC ×2 (10:03→21:22)
[2024-04-26] MEDS: dilTIAZem CD 120 MG Capsule PO ×2 (10:39→21:21)
[2024-04-26] MEDS: Ferrous Sulfate 325 MG Tablet PO (12:13)
[2024-04-26] MEDS: 0.9% Saline Lock 10 ML Syringe IV (12:13)
[2024-04-26] MEDS: Acetaminophen 325 MG Tablet 650 MG PO (12:13)
[2024-04-26 12:26] LABS: Bedside Glucose 115 mg/dL (74-106)
[2024-04-26 16:43] LABS: Bedside Glucose 122 mg/dL (74-106)
[2024-04-26] MEDS: Atorvastatin Calcium 80 MG Tablet PO (21:21)
[2024-04-26 21:44] LABS: Bedside Glucose 118 mg/dL (74-106)
[2024-04-27] VITALS (7 sets, daily range): BP systolic 117–133; BP diastolic 58–70; PULSE 77–97; RESP 18–20; TEMP 36.6–36.9; O2SAT 93–95
[2024-04-27] MEDS: Vancomycin HCl 1,500 MG in 0.9% Normal Saline (500mL Bag) 500 ML 250 MG IV (02:36)
[2024-04-27] MEDS: Levothyroxine 50 MCG Tablet PO (06:33)
[2024-04-27] MEDS: Levothyroxine 100 MCG Tablet 200 MCG PO (06:33)
[2024-04-27 06:55] LABS: Bedside Glucose 100 mg/dL (74-106)
[2024-04-27] MEDS: Lactobacillis Acidophilus 1 CAP PO (10:18)
[2024-04-27] MEDS: dilTIAZem CD 120 MG Capsule PO ×2 (10:18→21:27)
[2024-04-27] MEDS: Furosemide 40 MG Tablet PO ×2 (10:19→16:52)
[2024-04-27] MEDS: Metoprolol Tartrate 100 MG Tablet PO ×2 (10:19→21:27)
[2024-04-27] MEDS: Vibegron 75 MG TABLET PO (10:19)
[2024-04-27] MEDS: SACUBITRIL/VALSARTAN 49-51 MG TABLET 1 EACH PO ×2 (10:19→21:27)
[2024-04-27] MEDS: Potassium Chloride Oral Tablet 20 MEQ PO (10:19)
[2024-04-27] MEDS: APIXABAN 2.5 MG TABLET (WCH) PO (10:19)
[2024-04-27] MEDS: 0.9% Saline Lock 10 ML Syringe IV (10:20)
[2024-04-27] MEDS: Insulin Glargine-YFGN 100 UNIT/ML Pen 20 UNIT SC ×2 (10:23→21:21)
[2024-04-27] MEDS: Pantoprazole Sodium 40 MG in 0.9% Normal Saline (100mL MB+) 100 ML 330 MG IV ×2 (10:29→20:56)
--- NOTE | 2024-04-27 10:45 | CASEMGMT ---
FLETCHER UGARTE chart review: Patient as admitted 04/05-04/07/24 for COPD and CHF exacerbation. See FLETCHER UGARTE assessment and notes from 04/07/24. Patient was discharged to home with resumption of baseline oxygen, established palliative care, family support, and follow-up plans in place. Patient declined HHC as she is not homebound and declined CCN referral. Patient returned to [facility] ED on 04/25/24 for increased SOB. Patient was admitted for PAF RVR, hypoxia, and pneumonia. Patient was starte on cardizem gtt and now converted to PO Cardizem. FLETCHER UGARTE in to discuss readmission and needs at discharge. Patient states she followed up with her PCP and was to see social scientist in [place] today for valve replacement workup. Patient states she was taking medications as prescribed. Patient states that COAT REPAIR INSPECTOR with Palliative Care just recently saw her as well. Patient states she is weigh herself daily and following low sodium diet. Patient wishes to discharge home, declining HHC as she is not homebound. Patient denies needs at dischrage. CM will continue to follow this patient and plan for safe discharge.
[2024-04-27] MEDS: Meropenem 1 GM in 0.9% Normal Saline (100mL MB+) 100 ML IV ×2 (11:58→21:21)
[2024-04-27] MEDS: Ferrous Sulfate 325 MG Tablet PO (12:02)
[2024-04-27 12:21] LABS: Bedside Glucose 121 mg/dL (74-106)
[2024-04-27 17:40] LABS: Bedside Glucose 112 mg/dL (74-106)
--- NOTE | 2024-04-27 18:09 | PCM.PN.HOSP ---
Subjective Subjective Doing well, feels a bit better. Heart rate is better controlled Objective Data Objective Data Vital Signs: Vital Signs Temp Pulse Resp BP Pulse Ox O2 Del Method O2 Flow Rate 97.9 F 87 20 H 117/58 L 94 Nasal Cannula 4 04/27/24 14:56 04/27/24 14:56 04/27/24 14:56 04/27/24 14:56 04/27/24 14:56 04/27/24 15:14 04/27/24 15:14 Oxygen Flow Rate (L/min) 4 Oxygen Delivery Method Nasal Cannula Weight: 257 lb 7.999 oz Body Mass Index (BMI) 39.1 Intake & Output: Intake and Output for Last 24 Hours 04/26/24 04/27/24 04/28/24 03:59 03:59 03:59 Intake Total 1013.33 / 1028.33 1792.75 / 1792.75 760 / 760 Output Total 1250 / 1250 700 / 700 Balance 1013.33 / 1028.33 542.75 / 542.75 60 / 60 Lab / Micro Data 04/26/24 05:58 04/26/24 05:58 Labs: Laboratory Results - last 24 hr 04/26/24 21:20: POC Glucose 118 H 04/27/24 06:32: POC Glucose 100 04/27/24 12:01: POC Glucose 121 H 04/27/24 16:51: POC Glucose 112 H Micro: Microbiology 04/26/24 06:00 Urine, Clean Catch Legionella Antigen - Final 04/26/24 06:00 Urine, Clean Catch Streptococcus pneumoniae Antigen (M - Final 04/26/24 00:03 Nasal Secretion MRSA (PCR) - Final 04/25/24 20:40 Mucosa - Nose SARS-CoV-2, Influenza & RSV (PCR) - Final Physical Exam Narrative General: Alert, Oriented x3, Cooperative, No apparent distress HEENT: Atraumatic, PERRLA, EOMI, Normocephalic Oral: Moist Mucosa Neck: Supple, No JVD Lungs: Diminished, Normal air movement, No rhonchi, No wheeze, No rales Cardiovascular: Irregular rate and rhythm, Normal S1, Normal S2, No murmurs Abdomen: Soft, Non Tender, Non-Distended, No Hepato-splenomegaly Extremities: No edema, Capillary Refill Less than 3 Seconds Skin: No rashes, No breakdown Musculoskeletal: No Tenderness to Palpation of Joints or Extremities Neurological: No focal neurological deficits, Motor Exam 5/5 strength throughout, Sensory exam intact to light touch and pain Psych/Mental Status: Normal Affect, Appropriate Assessment & Plan Assessment/Plan (1) Atrial fibrillation with RVR: (2) Pneumonia: PLAN: Plan 1. Acute on chronic hypoxic and hypercapnic respiratory failure due to COPD exacerbation in the setting of pneumonia ? Secondary to COPD with acute exacerbation as well as pneumonia admitted to monitored bed with treatment of the underlying clinical etiology 04/27/2024: Continue with the broad-spectrum antibiotics, cultures are pending will continue with budesonide inhalation to avoid systemic steroids. Cultures so far negative can likely start to narrow down antibiotics tomorrow. Baseline oxygen is 5 L 5. Paroxysmal A-fib with RVR with type II demand ischemia ? Patient was started on Cardizem drip titrated to keep heart rate less than 100 patient is already on systemic anticoagulation with apixaban continued. Plan is to wean patient off on Cardizem drip and start on p.o. Cardizem 04/27/2024: Heart rate is better controlled with p.o. Cardizem, she did have elevated troponin consistent with demand ischemia in the setting of her tachycardia and hypoxia from her COPD 6. Chronic congestive heart failure present ejection fraction Echo obtained on 12/26/2023 demonstrated EF of 65% Mild global right ventricular systolic dysfunction.patient remains euvolemic 04/27/2024: Continue with oral Lasix 7. Valvular heart disease ? Patient has known history severe tricuspid valve insufficiency and has a planned valvular replacement pending 8. Severe pulmonary hypertension ? Complicating care echo from 12/26/2023 demonstrated .Severe pulmonary hypertension. Pulmonary artery systolic pressure estimated at 60 mmHg. 9 . Diabetes mellitus type 2 with complications including diabetic nephropathy with CKD 3 - Patient is on oral agent held on admission placed on scheduled insulin with Accu-Cheks before meals and at bedtime with sliding scale coverage 11. Anemia ? Secondary to chronic disorder monitoring H&H and transfuse if patient becomes symptomatic or hemoglobin falls below 7 12.. History of right breast CA -status post mastectomy with subsequent neoadjuvant chemotherapy patient was managed on tamoxifen for 5 years 16. Hypertension -blood pressure controlled, home medications continued with dose adjustment as needed 17. Hypothyroidism -patient is on levothyroxine home dose continued DVT: Eliquis Charges/Coding Visit Charges Inpatient E&M: 23591 [facility] Hosp L2
[2024-04-27] MEDS: Atorvastatin Calcium 80 MG Tablet PO (21:27)
[2024-04-27 21:47] LABS: Bedside Glucose 118 mg/dL (74-106)
[2024-04-28 01:22] LABS: Vancomycin, Trough Level 18.1 ug/mL (5.0-15.0)
[2024-04-28] MEDS: Vancomycin HCl 1,500 MG in 0.9% Normal Saline (500mL Bag) 500 ML 250 MG IV (01:53)
--- NOTE | 2024-04-28 02:13 | PCM.RX.CS ---
Consult Antibiotic Management Pharmacy has been consulted to manage selected antibiotic: Vancomycin Type of Intervention Type of Consult: Follow-up Labs Labs: Sodium 144 mmol/L (136-145) 04/26/24 05:58 Potassium 4.3 mmol/L (3.5-5.1) 04/26/24 05:58 Chloride 114 mmol/L (98-107) H 04/26/24 05:58 Carbon Dioxide 22.0 mmol/L (21.0-32.0) 04/26/24 05:58 Anion Gap 7 (5-15) 04/26/24 05:58 BUN 44 mg/dL (7-18) H 04/26/24 05:58 Creatinine 1.56 mg/dL (0.55-1.02) H 04/26/24 05:58 Est GFR (MDRD) Af Amer 41 mL/min (>60) L 04/26/24 05:58 Est GFR (MDRD) Non-Af 34 mL/min (>60) L 04/26/24 05:58 BUN/Creatinine Ratio 28.2 RATIO (10-20) H 04/26/24 05:58 Glucose 100 mg/dL (74-106) 04/26/24 05:58 Vancomycin Trough 18.1 ug/mL (5.0-15.0) H 04/28/24 00:57 Microbiology Microbiology: Microbiology 04/26/24 06:00 Urine, Clean Catch Legionella Antigen - Final 04/26/24 06:00 Urine, Clean Catch Streptococcus pneumoniae Antigen (M - Final 04/26/24 00:03 Nasal Secretion MRSA (PCR) - Final 04/25/24 20:40 Mucosa - Nose SARS-CoV-2, Influenza & RSV (PCR) - Final Goal Trough Goal Trough: 15-20 mcg/mL Pharmacy Plan for Drug Dosing Pharmacy Plan for Drug Dosing: Pharmacy Service will continue to monitor and adjust dosing as required. TROUGH 18.1 @ 22.5 HOURS. NO CHANGES, FOLLOW UP TROUGH IN 2 DAYS Follow-Up Labs Follow-Up Labs: Trough: Vancomycin Date/Time Labs Ordered Labs to be done on [date and time ordered]: 04/30 @ 0100
[2024-04-28 03:57] VITALS: BP 134/75; PULSE 84; RESP 18; TEMP 36.6; O2SAT 93
[2024-04-28 04:11] LABS: Absolute Lymphocyte Count 0.95 X10^3/uL (0.83-4.51); Absolute Neutrophil Count 4.7 X10^3/uL (2.0-7.7); Basophil# 0.03 X10^3/uL; Basophil% 0.5 % (0-1); Eosinophil# 0.05 X10^3/uL; Eosinophils% 0.8 % (0-5); Hematocrit 32.9 % (37-47); Hemoglobin 10.2 g/dL (12.0-15.0); Lymphocyte # 0.95 X10^3/ul (0.83-4.51); Lymphocyte % 14.4 % (19-41); Mean Corpuscular Hgb 27.9 pg (27.0-32.0); Mean Corpuscular Volume 89.9 fL (81-99); Mean Platelet Vol. 11.1 fl (6.2-12.0); Monocyte# 0.77 X10^3/uL; Monocyte% 11.6 % (0-10); NRBC Flagged by Analyzer 0 % (0-5); Neutrophil # 4.72 X10^3/uL (2.7-7.7); Neutrophil % 71.3 % (47-70); Platelet Count 206 K/mm3 (150-450); RBC Distribution Width CV 16.6 % (11.6-14.6); RBC Distribution Width SD 54.4 fl (35.1-43.9); Red Blood Count 3.66 M/mm3 (4.2-5.4); White Blood Count 6.6 K/mm3 (4.4-11.0)
[2024-04-28 04:12] VITALS: BMI 40.4
[2024-04-28 05:06] LABS: Anion Gap 8 (5-15); BUN 39 mg/dL (7-18); BUN/Creat Ratio 23.5 RATIO (10-20); Calcium,Total 8.1 mg/dL (8.5-10.1); Chloride 110 mmol/L (98-107); Creatinine, Serum 1.66 mg/dL (0.55-1.02); EST Glomerular Filtration Rate 31 mL/min (>60); Est Glom Filt Rate - Afr Amer 38 mL/min (>60); Estimated Creatinine Clearance 33.88 ml/min; Glucose 105 mg/dL (74-106); Potassium 3.8 mmol/L (3.5-5.1); Sodium Level 139 mmol/L (136-145)
[2024-04-28] MEDS: Levothyroxine 100 MCG Tablet 200 MCG PO (05:51)
[2024-04-28] MEDS: Levothyroxine 50 MCG Tablet PO (05:51)
[2024-04-28 06:28] LABS: Bedside Glucose 121 mg/dL (74-106)
[2024-04-28 07:25] VITALS: O2SAT 93
[2024-04-28] MEDS: Meropenem 1 GM in 0.9% Normal Saline (100mL MB+) 100 ML IV (09:02)
[2024-04-28 09:06] VITALS: BP 138/78; PULSE 74; RESP 17; TEMP 36.6; O2SAT 96
[2024-04-28 09:10] VITALS: PULSE 74
[2024-04-28] MEDS: Metoprolol Tartrate 100 MG Tablet PO (09:10)
[2024-04-28] MEDS: Lactobacillis Acidophilus 1 CAP PO (09:10)
[2024-04-28] MEDS: Furosemide 40 MG Tablet PO (09:10)
[2024-04-28] MEDS: SACUBITRIL/VALSARTAN 49-51 MG TABLET 1 EACH PO (09:10)
[2024-04-28] MEDS: Potassium Chloride Oral Tablet 20 MEQ PO (09:11)
[2024-04-28] MEDS: dilTIAZem CD 120 MG Capsule PO (09:11)
[2024-04-28] MEDS: APIXABAN 2.5 MG TABLET (WCH) PO (09:11)
[2024-04-28] MEDS: Vibegron 75 MG TABLET PO (09:11)
[2024-04-28] MEDS: Pantoprazole Sodium 40 MG Tablet PO (09:22)
[2024-04-28] MEDS: Insulin Glargine-YFGN 100 UNIT/ML Pen 20 UNIT SC (09:23)
[2024-04-28] MEDS: Ferrous Sulfate 325 MG Tablet PO (12:15)
[2024-04-28 12:34] LABS: Bedside Glucose 109 mg/dL (74-106)
[2024-04-28 13:53] VITALS: O2SAT 97
--- NOTE | 2024-04-28 14:00 | CASEMGMT ---
RN CM in to discuss discharge planning with patient. Therapy to work with patient at this time. Patient wishes to discharge home, therapy to simulate home task. CM to follow-up with patient after working with therapy.
--- NOTE | 2024-04-28 15:30 | CASEMGMT ---
Patient did well with therapy and recommending home with home health. FLETCHER UGARTE in to discuss HHC with patient. Patient agreeable to HHC and state she will be home bound for a couple weeks. [facility], declined list. FLETCHER UGARTE made referral to [facility] and they will accept patient with start of care for . FLETCHER UGARTE update patient, patient had no further questions or concerns. FLETCHER UGARTE called daughter Marleny to discharge plan. FLETCHER UGARTE updated discharge plan.
--- NOTE | 2024-04-28 16:14 | DCINST_ITS ---
Discharge Instructions Diet Discharge Diet: Low fat / Low cholesterol, 6 Cup Fluid Restriction and Carb Control Diet DC O2, CPAP, BIPAP needs Home O2 Discharge instructions: No Dressing / Incision Discharge Activity: Return to Normal Activity Dressing / Incision Call your doctor if you observe: Fever of 101 or Higher, Shortness of breath, Dizziness, Fainting spells, Swelling in the ankles, Chest pain and Increased palpitations (irregular heartbeat) Follow Up Care Test Results: Test results from this visit will be discussed in further detail at your follow- up appointment, if applicable. Discharge Plan Admission Admit Date/Time: 04/25/24 23:06 Attending Provider: Ephraim Oneil Primary Care Provider: Alexy Douglas Chi Consulting Providers: Liz Griffin; Martin Davies Discharge Orders/Prescriptions Prescriptions: New cefdinir 300 mg capsule 300 mg PO BID 4 Days Qty: 8 0RF Continued diltiazem HCl 240 mg capsule,extended release 24hr 240 mg PO DAILY Qty: 90 3RF sacubitril-valsartan [Entresto] 49-51 mg tablet 1 tab PO BID ferrous sulfate [Feosol] 325 mg (65 mg iron) tablet 325 mg PO QDAY Gemtesa 75 mg tablet 75 mg PO QDAY Adult 50 Plus Probiotic 4 billion cell capsule 4,000 mmu cells PO QDAY Rx Instructions: administer with a meal rosuvastatin 40 mg tablet 40 mg PO QHS levothyroxine 200 mcg tablet 250 mcg PO DAILY cholecalciferol (vitamin D3) [Vitamin D3] 25 mcg (1,000 unit) capsule 25 mcg PO DAILY glimepiride 1 mg tablet 1 mg PO DAILY potassium chloride 20 mEq tablet,ER particles/crystals 20 meq PO DAILY acetaminophen 500 mg Tablet 1,000 mg PO Q8 PRN (Reason: arthiritis pain) Qty: 0 0RF metoprolol tartrate 100 mg tablet 100 mg PO BID furosemide 40 mg Tablet 40 mg PO Q12H Eliquis 2.5 mg tablet 2.5 mg PO DAILY insulin degludec [Tresiba FlexTouch U-100] 100 unit/mL (3 mL) insulin pen 20 unit subcut BID Referrals / Follow Up: Alexy Douglas Chi, MD [Primary Care Provider] - Within 1 Week Disposition Disposition (needs filled in before D/C Order can be placed): Home, Self Care
--- NOTE | 2024-04-28 16:21 | PCM.DC.SUM ---
Providers Date of Admission: 04/25/24 Primary Care Physician: Dr. Alexy Douglas MD Reason For Visit: PAF RVR, HYPOXIA, PNA Diagnosis Discharge Diagnosis (1) Atrial fibrillation with RVR: Status: Acute Code(s): I48.91 - Unspecified atrial fibrillation (2) Pneumonia: Status: Acute Code(s): J18.9 - Pneumonia, unspecified organism Medications at Discharge Home Medications diltiazem HCl 240 mg capsule,extended release 24 hr 240 mg PO DAILY heart #90 caps 04/26/23 apixaban 2.5 mg tablet (Eliquis) 2.5 mg PO DAILY blood thinner 08/20/23 sacubitril 49 mg-valsartan 51 mg tablet (Entresto) 1 tab PO BID heart 10/21/23 rosuvastatin 40 mg tablet 40 mg PO QHS cholesterol 12/02/23 insulin degludec 100 unit/mL (3 mL) subcutaneous pen (Tresiba FlexTouch U-100 insulin) 20 unit subcut BID diabetes 12/26/23 cholecalciferol (vitamin D3) 25 mcg (1,000 unit) capsule (Vitamin D3) 25 mcg PO DAILY supplement 01/20/24 glimepiride 1 mg tablet 1 mg PO DAILY hyperglycemia 03/16/24 ferrous sulfate 325 mg (65 mg iron) tablet (Feosol) 325 mg PO QDAY anemia 04/01/24 lactobacillus combination no.9 4 billion cell capsule (Adult 50 Plus Probiotic) 4,000 mmu cells PO QDAY probiotic 04/01/24 levothyroxine 200 mcg tablet 250 mcg PO DAILY thyroid 04/01/24 vibegron 75 mg tablet (Gemtesa) 75 mg PO QDAY follow up needed 04/01/24 potassium chloride 20 mEq tablet,extended release(part/cryst) 20 meq PO DAILY hypokalemia 04/05/24 acetaminophen 500 mg tablet 1,000 mg (2 x 500 mg) PO Q8 PRN arthiritis pain #0 tabs 04/07/24 furosemide 40 mg tablet 40 mg PO Q12H swelling 04/25/24 metoprolol tartrate 100 mg tablet 100 mg PO BID heart 04/25/24 cefdinir 300 mg capsule 300 mg PO BID 4 days #8 caps 04/28/24 Hospital Course Operations None Procedures None Summary of Care Provided Minutes Spent on Discharge: 36 Hospital Course: Per HPI: The patient is an 84 y/o F w/ PMHx: Obesity, PAF, COPD/Asthma with Chronic Hypoxic Respiratory Failure (4L NC), HTN, HLD, HFpEF, RLS, IDDM, Chronic anemia/Fe deficiency anemia, Rheumatoid arthritis, Valvular Heart Disease, CKD stage III unclear subtype per GFR trending, Former tobacco use, Hypothyroidism, Hx Breast CA unclear type who presents to the [facility] ED on 04/25/24 with history of increasing dyspnea over the last 2 to 3 days with productive cough, dyspnea worse with exertion with fatigue as well as loose stools over the last 12 hours noted to be several bouts in addition to persistent nausea and occasional emesis prompting eventual ED evaluation to be cautious. Workup in the ED included T99.4, heart rate 121, BP 141/70, respiratory rate 30, 99% on 4 L nasal cannula with Tmax in the ED 101 and heart rate up into the 130s with most recent repeat vitals T98.9, heart rate 113, BP 95/77, respiratory rate 18, 95% on 4 L nasal cannula, CBC with WC 10.6, hemoglobin 12.5, platelet 243 with left shift and lymphopenia, CMP with chloride 110, BUN/creatinine 44/1.54, GFR 34, lactic acid 1.6, glucose 142, BNP 384.8, troponin 21, chest x-ray with hazy bibasilar pulmonary opacities as well as small bilateral pleural effusions with left-sided loculation which is stable from previous exam, EKG with atrial fibrillation with RVR with repeat EKGs with concern for prolonged QTc of note. In the ED patient ministered Tylenol 650 mg p.o. x 1, IV Rocephin and IV doxycycline given concerns for QTc, diltiazem a total of 20 mg IV bolus eventually placed on a Cardizem drip, Zofran 4 mg IV x 1 which has been administered previous EKG. Hospital Course: 1. Acute on chronic hypoxic and hypercapnic respiratory failure due to COPD exacerbation in the setting of pneumonia ? Secondary to COPD with acute exacerbation as well as pneumonia admitted to monitored bed with treatment of the underlying clinical etiology 04/27/2024: Continue with the broad-spectrum antibiotics, cultures are pending will continue with budesonide inhalation to avoid systemic steroids. Cultures so far negative can likely start to narrow down antibiotics tomorrow. Baseline oxygen is 5 L 04/28/2024: I do believe that her hypoxia was likely related to COPD and her A-fib with RVR. I discussed with her the plan for discharge today she expressed understanding the risk benefits of going home and would like to go home today. She is down to her baseline oxygen of 4 L nasal cannula continuous. She did receive 3 days of meropenem and vancomycin secondary to QTc elongation on her EKG that was 510. Will continue with cefdinir p.o. for 4 more days, there was concern for MDRO but this was all in her wound cultures in her urine on previous cultures and nothing is growing currently. Will continue with all her home medications without any major changes. 5. Paroxysmal A-fib with RVR with type II demand ischemia ? Patient was started on Cardizem drip titrated to keep heart rate less than 100 patient is already on systemic anticoagulation with apixaban continued. Plan is to wean patient off on Cardizem drip and start on p.o. Cardizem 04/27/2024: Heart rate is better controlled with p.o. Cardizem, she did have elevated troponin consistent with demand ischemia in the setting of her tachycardia and hypoxia from her COPD 04/28/2024: She is denying any chest pain and feels much better now that her heart rate is controlled. 6. Chronic congestive heart failure present ejection fraction Echo obtained on 12/26/2023 demonstrated EF of 65% Mild global right ventricular systolic dysfunction.patient remains euvolemic 04/27/2024: Continue with oral Lasix 7. Valvular heart disease ? Patient has known history severe tricuspid valve insufficiency and has a planned valvular replacement pending 04/28/2024: Do recommend she follow-up with her PCP and then she should be able to reschedule her appointment with cardiology [place] for tricuspid valve repair 8. Severe pulmonary hypertension ? Complicating care echo from 12/26/2023 demonstrated .Severe pulmonary hypertension. Pulmonary artery systolic pressure estimated at 60 mmHg. 04/28/2024: Recommend fluid restriction on discharge to 6 cups for approximately 1500 cc will continue with her Lasix 9 . Diabetes mellitus type 2 with complications including diabetic nephropathy with CKD 3 - Patient is on oral agent held on admission placed on scheduled insulin with Accu-Cheks before meals and at bedtime with sliding scale coverage 11. Anemia ? Secondary to chronic disorder monitoring H&H and transfuse if patient becomes symptomatic or hemoglobin falls below 7 12.. History of right breast CA -status post mastectomy with subsequent neoadjuvant chemotherapy patient was managed on tamoxifen for 5 years 16. Hypertension -blood pressure controlled, home medications continued with dose adjustment as needed 17. Hypothyroidism -patient is on levothyroxine home dose continued Physical Exam Narrative General: Alert, Oriented x3, Cooperative, No apparent distress HEENT: Atraumatic, PERRLA, EOMI, Normocephalic Oral: Moist Mucosa Neck: Supple, No JVD Lungs: Diminished, Normal air movement, No rhonchi, No wheeze, No rales Cardiovascular: Irregular rate and rhythm, Normal S1, Normal S2, No murmurs Abdomen: Soft, Non Tender, Non-Distended, No Hepato-splenomegaly Extremities: edema, Capillary Refill Less than 3 Seconds Skin: No rashes, No breakdown Musculoskeletal: No Tenderness to Palpation of Joints or Extremities Neurological: No focal neurological deficits, Motor Exam 5/5 strength throughout, Sensory exam intact to light touch and pain Psych/Mental Status: Normal Affect, Appropriate Weight / BMI Weight Weight: 266 lb 1.567 oz Body Mass Index (BMI) 40.4 ABG / Lab / Microbiology Data 04/28/24 03:20 04/28/24 03:20 Laboratory: Laboratory Results - last 24 hr 04/27/24 16:51: POC Glucose 112 H 04/27/24 21:19: POC Glucose 118 H 04/28/24 00:57: Vancomycin Trough 18.1 H 04/28/24 03:20: WBC 6.6, RBC 3.66 L, Hgb 10.2 L, Hct 32.9 L, MCV 89.9 D, MCH 27.9, MCHC 31.0 L D, RDW Std Deviation 54.4 H, RDW Coeff of Sudha 16.6 H, Plt Count 206, MPV 11.1, Immature Gran % (Auto) 1.400 H, Neut % (Auto) 71.3 H, Lymph % (Auto) 14.4 L, [place] % (Auto) 11.6 H, Eos % (Auto) 0.8, Baso % (Auto) 0.5, Absolute Neuts (auto) 4.7, Absolute Lymphs (auto) 0.95, Nucleated RBC % 0, Sodium 139, Potassium 3.8, Chloride 110 H, Carbon Dioxide 21.0, Anion Gap 8, BUN 39 H, Creatinine 1.66 H, Estim Creat Clear Calc 33.88, Est GFR (MDRD) Af Amer 38 L, Est GFR (MDRD) Non-Af 31 L, BUN/Creatinine Ratio 23.5 H, Glucose 105, Calcium 8.1 L 04/28/24 05:50: POC Glucose 121 H 04/28/24 12:14: POC Glucose 109 H Microbiology: Microbiology 04/25/24 22:20 Blood Culture (Wb) - Anticubital Left Blood Culture - Preliminary No growth in 48 hours. 04/25/24 22:12 Blood Culture (Wb) - Anticubital Right Blood Culture - Preliminary No growth in 48 hours. 04/26/24 06:00 Urine, Clean Catch Legionella Antigen - Final 04/26/24 06:00 Urine, Clean Catch Streptococcus pneumoniae Antigen (M - Final 04/26/24 00:03 Nasal Secretion MRSA (PCR) - Final 04/25/24 20:40 Mucosa - Nose SARS-CoV-2, Influenza & RSV (PCR) - Final D/C Instructions Discharge Diet: Low fat / Low cholesterol, 6 Cup Fluid Restriction and Carb Control Diet Call your doctor if you observe: Fever of 101 or Higher, Shortness of breath, Dizziness, Fainting spells, Swelling in the ankles, Chest pain and Increased palpitations (irregular heartbeat) DC O2, CPAP, BIPAP Needs Home O2 Discharge instructions: No Meaningful Use Info Meaningful Use Meaningful Use Diagnoses (Choose all that apply): None applicable Ischemic Stroke Statin Dosing Therapy Reference: STATIN DOSE THERAPY REFERENCE: * Patients > 75 years receive moderate or high dose statin therapy. * Patients 75 years or YOUNGER should receive HIGH intensity statin dose unless contraindicated. You will be required to document reason for non-treatment if statin daily dose does not meet guidelines. HIGH DOSE STATIN THERAPY DAILY Atorvastatin > than or = to 40 mg Rosuvastatin > than or = to 20 mg Amlodipine + Atorvastatin > than or = to 2.5/40 mg Ezetimibe + Simvastatin 10/80 mg Simvastatin 80mg Discharge Plan Admission Admit Date/Time: 04/25/24 23:06 Attending Provider: Ephraim Oneil Primary Care Provider: Alexy Douglas [employer] Consult[employer] Providers: Liz Griffin; Martin Davies Discharge Orders/Prescriptions Prescriptions: New cefdinir 300 mg capsule 300 mg PO BID 4 Days Qty: 8 0RF Continued diltiazem HCl 240 mg capsule,extended release 24hr 240 mg PO DAILY Qty: 90 3RF sacubitril-valsartan [Entresto] 49-51 mg tablet 1 tab PO BID ferrous sulfate [Feosol] 325 mg (65 mg iron) tablet 325 mg PO QDAY Gemtesa 75 mg tablet 75 mg PO QDAY Adult 50 Plus Probiotic 4 billion cell capsule 4,000 mmu cells PO QDAY Rx Instructions: administer with a meal rosuvastatin 40 mg tablet 40 mg PO QHS levothyroxine 200 mcg tablet 250 mcg PO DAILY cholecalciferol (vitamin D3) [Vitamin D3] 25 mcg (1,000 unit) capsule 25 mcg PO DAILY glimepiride 1 mg tablet 1 mg PO DAILY potassium chloride 20 mEq tablet,ER particles/crystals 20 meq PO DAILY acetaminophen 500 mg Tablet 1,000 mg PO Q8 PRN (Reason: arthiritis pain) Qty: 0 0RF metoprolol tartrate 100 mg tablet 100 mg PO BID furosemide 40 mg Tablet 40 mg PO Q12H Eliquis 2.5 mg tablet 2.5 mg PO DAILY insulin degludec [Tresiba FlexTouch U-100] 100 unit/mL (3 mL) insulin pen 20 unit subcut BID Referrals / Follow Up: Alexy Douglas Chi, MD [Primary Care Provider] - Within 1 Week Disposition Disposition (needs filled in before D/C Order can be placed): Home, Self Care Charges/Coding Visit Charges Inpatient E&M: 91472 Disch Hosp >30min
[2024-04-28 17:20] LABS: Bedside Glucose 152 mg/dL (74-106)
== END 2024-04-28 17:46 | disposition home or self-care (01) | DRG 871 ==
LOC: ED 21:52 → PCU 23:28
PROVIDERS: Internal Medicine; Admitting Provider Family Medicine; Emergency Provider Emergency Medicine; PCP Family Medicine Geriatric Medicine; Visit Provider Family Medicine
DX: A41.9 Sepsis, unspecified organism (principal); J18.9 Pneumonia, unspecified organism; J96.22 Acute and chronic respiratory failure with hypercapnia; J96.21 Acute and chronic respiratory failure with hypoxia; J90 Pleural effusion, not elsewhere classified; I24.89 Other forms of acute ischemic heart disease; I13.0 Hypertensive heart and chronic kidney disease with heart failure and stage 1 through stage 4 chronic kidney disease, or unspecified chronic kidney disease; J44.1 Chronic obstructive pulmonary disease with (acute) exacerbation; I50.32 Chronic diastolic (congestive) heart failure; J44.0 Chronic obstructive pulmonary disease with (acute) lower respiratory infection; E11.21 Type 2 diabetes mellitus with diabetic nephropathy; N18.30 Chronic kidney disease, stage 3 unspecified; M06.9 Rheumatoid arthritis, unspecified; I27.20 Pulmonary hypertension, unspecified; D50.9 Iron deficiency anemia, unspecified; E03.9 Hypothyroidism, unspecified; I70.0 Atherosclerosis of aorta; E66.812 Obesity, class 2; I48.0 Paroxysmal atrial fibrillation; E11.22 Type 2 diabetes mellitus with diabetic chronic kidney disease; K52.9 Noninfective gastroenteritis and colitis, unspecified; Z79.4 Long term (current) use of insulin; K21.9 Gastro-esophageal reflux disease without esophagitis; E78.5 Hyperlipidemia, unspecified; Z68.39 Body mass index [BMI] 39.0-39.9, adult; Z79.890 Hormone replacement therapy; Z87.891 Personal history of nicotine dependence; Z90.710 Acquired absence of both cervix and uterus; Z80.0 Family history of malignant neoplasm of digestive organs; Z79.84 Long term (current) use of oral hypoglycemic drugs; Z85.3 Personal history of malignant neoplasm of breast
CPT/HCPCS: 36415; 71045; 76705; 80048; 80053; 80061; 80202; 82962; 83605; 83735; 83880; 84100; 84145; 84443; 84484; 85025; 87040; 87449; 87631; 87641; 93005; 97116; 97162; 97166; 97530; 97535; 99285; J2185; A4216; J0696; J2405

== ENCOUNTER → 2024-05-14 | Outpatient (CLI) | payer MEDICARE, OTHER, SELFPAY ==
[2024-05-14 14:06] LABS: Anion Gap 9 (5-15); BUN 29 mg/dL (4-19); BUN/Creat Ratio 20.1 RATIO (10-20); Calcium 9.1 mg/dL (7.6-11.0); Carbon Dioxide 27.9 mmol/L (22.0-29.0); Chloride 100 mmol/L (96-108); Creatinine, Serum 1.4 mg/dL (0.6-1.0); EST Glomerular Filtration Rate 36 (>60); Glucose 331 mg/dL (70-99); Potassium 4.8 mmol/L (3.3-5.1); Sodium Level 137 mmol/L (133-145)
== END | disposition home or self-care (01) ==
LOC: LAB 13:22
PROVIDERS: PCP Family Medicine Geriatric Medicine; Referring Provider Nurse Practitioner Family; Visit Provider Nurse Practitioner Family
DX: Z51.81 Encounter for therapeutic drug level monitoring (principal); I50.30 Unspecified diastolic (congestive) heart failure; Z79.899 Other long term (current) drug therapy
CPT/HCPCS: 36415; 80048

== ENCOUNTER 2024-06-29 06:39 | Day surgery (SDC) | payer MEDICARE, OTHER, SELFPAY ==
[2024-06-22 14:58] LABS: Absolute Lymphocyte Count 0.94 X10^3/uL (0.83-4.51); Absolute Neutrophil Count 6.8 X10^3/uL (2.0-7.7); Basophil# 0.05 X10^3/uL; Basophil% 0.6 % (0-1); Eosinophil# 0.12 X10^3/uL; Eosinophils% 1.4 % (0-5); Hematocrit 31.5 % (37-47); Hemoglobin 9.8 g/dL (12.0-15.0); Lymphocyte # 0.94 X10^3/ul (0.83-4.51); Lymphocyte % 10.7 % (19-41); Mean Corp Hgb Conc 31.1 g/dL (32-36); Mean Corpuscular Hgb 28.4 pg (27.0-32.0); Mean Corpuscular Volume 91.3 fL (81-99); Mean Platelet Vol. 10.3 fl (6.2-12.0); Monocyte# 0.76 X10^3/uL; Monocyte% 8.6 % (0-10); NRBC Flagged by Analyzer 0 % (0-5); Neutrophil # 6.78 X10^3/uL (2.7-7.7); Neutrophil % 76.9 % (47-70); Platelet Count 275 K/mm3 (150-450); RBC Distribution Width CV 15.6 % (11.6-14.6); RBC Distribution Width SD 51.6 fl (35.1-43.9); Red Blood Count 3.45 M/mm3 (4.2-5.4); White Blood Count 8.8 K/mm3 (4.4-11.0)
[2024-06-22 15:52] LABS: Prothrombin Time (Protime)PT. 12.9 SECONDS (11.7-14.9)
[2024-06-22 15:53] LABS: Partial Thromboplast Time 23.3 Seconds (24.1-36.2)
[2024-06-22 18:27] LABS: Anion Gap 11 (5-15); BUN 25 mg/dL (4-19); BUN/Creat Ratio 15.1 RATIO (10-20); Carbon Dioxide 25.6 mmol/L (21.0-32.0); Chloride 101 mmol/L (98-108); Creatinine, Serum 1.64 mg/dL (0.70-1.20); EST Glomerular Filtration Rate 30 (>60); Glucose 406 mg/dL (70-99); Sodium Level 138 mmol/L (133-145)
[2024-06-26 07:55] VITALS: BMI 38.7
[2024-06-29 08:19] LABS: Blood Gas Specimen Type VEN; O2 Delivery Device Not entered; SITE Not entered; VBG BASE EXCESS 5 mmol/L (-1.0-3.5); VBG Bicarbonate 30 mmol/L (22-26); VBG PO2 31 mmHg (25-40); VBG SO2 57 % (50-70); VBG TCO2 32 mmol/L (23-33); VBG pCO2 52.4 mmHg (41-51); VBG pH 7.37 (7.32-7.42)
[2024-06-29 08:20] LABS: Blood Gas Specimen Type VEN; O2 Delivery Device Not entered; SITE Not entered; VBG BASE EXCESS 6 mmol/L (-1.0-3.5); VBG Bicarbonate 31 mmol/L (22-26); VBG PO2 25 mmHg (25-40); VBG SO2 43 % (50-70); VBG TCO2 33 mmol/L (23-33); VBG pCO2 52.4 mmHg (41-51); VBG pH 7.38 (7.32-7.42)
[2024-06-29 08:25] LABS: Blood Gas Specimen Type VEN; O2 Delivery Device Not entered; SITE Not entered; VBG BASE EXCESS 6 mmol/L (-1.0-3.5); VBG Bicarbonate 31 mmol/L (22-26); VBG PO2 30 mmHg (25-40); VBG SO2 55 % (50-70); VBG TCO2 33 mmol/L (23-33); VBG pCO2 51.4 mmHg (41-51); VBG pH 7.39 (7.32-7.42)
--- NOTE | 2024-06-29 08:31 | CL.D_ITS ---
Patient Name: TONJA SÁNCHEZ Study Date: 06/29/2024 Performing: Roosevelt Tesfaye MD Ht: 68 inches 172.72 cm : 1940 Wt: 255.01 lbs 115.67 kg Age: 84 Gender: female BSA: 2.27 PROCEDURE(S) PERFORMED [id number]-([id number])[facility] ONLY CLINICAL PROFILE AND INDICATIONS Indications: Other Heart Failure: NYHA Class: 3, Newly Diagnosed: No Stress/Imaging Stress/Image Study Performed: No CAD Presentations: Symptom unlikely to be ischemic. CONCLUSIONS Moderate pulmonary hypertension. See numbers enclosed. RECOMMENDATIONS As per pulmonary service. DESCRIPTION OF PROCEDURE The patient arrived to the procedure lab. The risks and benefits of the procedure as well as a full description of our services here and current unavailability of surgical backup were fully explained to the patient and/or their significant other prior to the catheterization. The Timeout was completed, verifying the correct patient and procedure. The patient's procedural site was prepped and draped in the usual fashion. Local anesthetic was given subcutaneously to right brachial region with Lidocaine 2%. Using a modified Seldinger technique, Venous access was obtained via the right brachiocephalic vein, with Micropuncture set A 7Fr thermal dilution catheter was inserted and right heart pressures were recorded, it was then advanced to PA position for cardiac outputs. O2 saturations were then obtained. The Thermal dilution catheter was then removed.The venous sheath was then pulled and manual compression applied until hemostasis achieved CORONARY ANGIOGRAPHY RIGHT HEART ASSESSMENT PA: 54/14 31 RV: 49/-3 1 RA: /10 6 Right Heart pressures - elevated COMPLICATIONS No Complications PROCEDURE MEDICATIONS Versed 1 mg IV Fentanyl 50 mcg IV Oxygen: 2 L/min via nasal cannula IV Fluids: .9 NaCl IV started @ 50 ml/hr 06/29/2024 07:15:35 SUMMARY OF HEMODYNAMIC DATA Time AIR REST ECG 07:14:11 RA /10 (6) SV 08:09:42 RV 49/-3, 1 08:10:11 RV 53/1, 10 08:10:56 PA 54/14 (31) PA 08:11:22 PAp 49/20 (31) 08:12:33 PA 56/20 (33) 08:15:15 RV 55/6, 13 08:15:28 RA /19 (13) 08:15:40 Label % O2 Pres/Loc Time AIR REST PA 43 PA 08:21:10 RA 55 SV 08:24:48 Signed By Roosevelt Tesfaye MD On 06/29/2024 08:30:50 Roosevelt Tesfaye MD
== END 2024-06-29 10:30 | disposition home or self-care (01) ==
PROVIDERS: Nurse Practitioner Acute Care; PCP Family Medicine Geriatric Medicine; Referring Provider Internal Medicine Cardiovascular Disease; Visit Provider Internal Medicine Cardiovascular Disease
DX: I07.1 Rheumatic tricuspid insufficiency (principal); I27.20 Pulmonary hypertension, unspecified; I48.91 Unspecified atrial fibrillation; E11.9 Type 2 diabetes mellitus without complications; N18.30 Chronic kidney disease, stage 3 unspecified; E78.5 Hyperlipidemia, unspecified; Z85.3 Personal history of malignant neoplasm of breast; Z90.710 Acquired absence of both cervix and uterus; Z87.891 Personal history of nicotine dependence; R53.83 Other fatigue; R06.02 Shortness of breath; E66.9 Obesity, unspecified; E03.9 Hypothyroidism, unspecified; I12.9 Hypertensive chronic kidney disease with stage 1 through stage 4 chronic kidney disease, or unspecified chronic kidney disease
CPT/HCPCS: 36415; 80048; 82803; 85025; 85610; 85730; 93451; 99152; 99153; C1894; Q9967; C1751; C1769

== ENCOUNTER 2024-06-30 12:25 | Inpatient (IN) | payer MEDICARE, OTHER, SELFPAY ==
[2024-06-30] VITALS (13 sets, daily range): BP systolic 106–146; BP diastolic 61–99; PULSE 97–150; RESP 23–36; TEMP 36.9–37.1; O2SAT 93–100; BMI 39.6; BMI 39.0
--- NOTE | 2024-06-30 12:40 | CT_ITS ---
PROCEDURE: BRAIN/HEAD WITHOUT CONTRAST 06/30/2024 REASON FOR EXAM: CONFUSION Dizziness. Weakness. TECHNIQUE: Head CT without intravenous contrast. Coronal and Sagittal reconstruction series were provided. One or more dose reduction techniques were used (e.g., Automated exposure control, adjustment of the mA and/or kV according to patient size, use of iterative reconstruction technique. RADIATION DOSE SUMMARY: CTDlvol: 44.99 mGy DLP: 812.98 mGycm COMPARISON: None FINDINGS: Brain: Low density in the periventricular white matter suggests mild chronic small vessel ischemic changes. Focal rounded hypodensity seen in the head of the caudate nucleus on the left side. This may represent a lacunar infarct. Age can not be determined on this examination. CSF Spaces: Mild generalized cerebral atrophy Sinuses/Mastoids: Clear at visualized levels Bones: Hyperostosis frontalis interna. CT/Brain/Head without Contrast IMPRESSION: CHRONIC CHANGES. Questionable lacunar infarct in the head of the left caudate nucleus. Reading Location: [place] [id number]
--- NOTE | 2024-06-30 12:41 | EKG12_ITS ---
Test Reason : Blood Pressure : */* mmHG Vent. Rate : 140 BPM Atrial Rate : * BPM P-R Int : * ms QRS Dur : 130 ms QT Int : 326 ms P-R-T Axes : * 153 -9 degrees QTcB Int : 497 ms Critical Test Result: High HR Atrial fibrillation with rapid ventricular response Right bundle branch block Abnormal ECG Confirmed by Subhash Malone ([id number]), multimedia editor PAUL GALAN ([id number]) on 07/03/2024 6:44:01 AM Referred By: BRIAN Confirmed By: Subhash Malone
--- NOTE | 2024-06-30 12:48 | EX.ED.DYSGE1 ---
HPI <WILDER Mishra - Last Filed: 06/30/24 15:15> History of Present Illness Chief Complaint: Weakness Narrative Narrative: Patient is an 84-year-old female with a long history of pulmonary, cardiovascular disease. Patient's history of COPD, atrial fibrillation on Eliquis, presented to the [facility] for weakness, altered mental status. The patient was on the toilet when the squad arrived. There is on known how long the patient was on the toilet. Patient is alert and orient x 1-2. This is not normal for the patient. The patient secondary to altered mental status is unable to say what hurts or what the reason for coming to the Emergency Department is. Patient brought in by EMS [facility] <WILDER Mishra - Last Filed: 06/30/24 15:15> [facility] Medical History SOB (shortness of breath) (HFpEF) heart failure with preserved ejection fraction CHF (congestive heart failure) Chronic respiratory failure with hypoxia and hypercapnia Anticoagulated Asthma CHF exacerbation Congestive heart failure (CHF) IDDM (insulin dependent diabetes mellitus) Diabetes Rheumatoid arthritis On home oxygen therapy Low iron Insulin dependent diabetes mellitus Wears glasses Wears dentures Cancer History of steroid therapy History of renal disease High cholesterol Restless legs Injury of back Back pain Dietary restriction Shortness of breath on exertion History of pain when walking History of edema History of echocardiogram History of stress test Cardiology follow-up encounter History of CHF (congestive heart failure) History of atrial fibrillation Hyperlipidemia Overactive bladder Hypothyroidism Diabetes mellitus Hypertension Chronic kidney disease, stage 3b Former smoker Atrial fibrillation Hypertension Chronic anticoagulation Skin cancer, basal cell Actinic keratosis Skin lesion Skin cancer Chronic diastolic (congestive) heart failure Longstanding persistent atrial fibrillation Diastolic dysfunction Secondary pulmonary arterial hypertension Non-rheumatic tricuspid valve insufficiency Stage 2 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 Right hip pain Disc degeneration, lumbar Fatigue UTI (urinary tract infection) Hypoxia Hypersomnia COPD (chronic obstructive pulmonary disease) Obesity Tobacco dependence in remission CKD (chronic kidney disease) stage 3, GFR 30-59 ml/min Breast cancer Essential (primary) hypertension BMI 39.0-39.9,adult Erosion of bladder suspension mesh SHAKIRA (stress urinary incontinence, female) Home Medications ?Medication ?Instructions ?Recorded ?Last Taken ?Type apixaban 2.5 mg tablet (Eliquis) 2.5 mg PO BID blood thinner 08/20/23 06/26/24 History sacubitril 49 mg-valsartan 51 mg 1 tab PO BID heart 10/21/23 04/24/24 History tablet (Entresto) rosuvastatin 40 mg tablet 40 mg PO QHS cholesterol 12/02/23 04/24/24 History insulin degludec 100 unit/mL (3 20 unit subcut BID diabetes 12/26/23 06/28/24 History mL) subcutaneous pen (Tresiba FlexTouch U-100 insulin) cholecalciferol (vitamin D3) 25 25 mcg PO DAILY supplement 01/20/24 04/24/24 History mcg (1,000 unit) capsule (Vitamin D3) glimepiride 1 mg tablet 1 mg PO DAILY hyperglycemia 03/16/24 06/28/24 History vibegron 75 mg tablet (Gemtesa) 75 mg PO DAILY follow up needed 04/01/24 04/24/24 History potassium chloride 20 mEq 20 meq PO DAILY hypokalemia 04/05/24 04/24/24 History tablet,extended release(part/cryst) acetaminophen 500 mg tablet 1,000 mg (2 x 500 mg) PO Q8 PRN 04/07/24 Unknown Rx arthiritis pain #0 tabs furosemide 40 mg tablet 80 mg PO DAILY swelling 04/25/24 04/24/24 History metoprolol tartrate 100 mg tablet 100 mg PO BID heart 04/25/24 06/29/24 History levothyroxine 200 mcg tablet 200 mcg PO DAILY thyroid 05/14/24 Unknown History levothyroxine 50 mcg tablet 50 mcg PO DAILY 05/14/24 Unknown History diltiazem HCl 240 mg 240 mg PO DAILY heart #90 caps 06/05/24 06/29/24 Rx capsule,extended release 24 hr albuterol sulfate 90 mcg/actuation 2 puff inhalation Q4H PRN 06/30/24 Unknown History aerosol inhaler shortness of breath or wheezing spironolactone 25 mg tablet 25 mg PO DAILY 06/30/24 Unknown History Allergy/AdvReac Type Severity Reaction Status Date / Time Sulfa (Sulfonamide Allergy PEELING Verified 06/26/24 14:01 Antibiotics) RASH Family History Mother Colon cancer Cancer skin, bladder Daughter Cancer Thyroid Sister CAD (coronary artery disease) Surgical History (Reviewed 06/26/24 @ 14:01 by Lovely Linda POLICY VALUE CALCULATOR, POLICY VALUE CALCULATOR-C) History of surgery Hx of colonoscopy Hx of right cataract extraction Hx of left cataract extraction History of excision of lesion Hx of local excision of skin lesion History of cardioversion (03/20/19) History of hysterectomy History of partial mastectomy History of left heart catheterization (05/31/14) Social History (Reviewed 06/26/24 @ 14:01 by Lovely Linda POLICY VALUE CALCULATOR, POLICY VALUE CALCULATOR-C) household members: none housing: house current occupational status: retired Smoking Status: Former smoker how long ago did patient quit smokin, 2p/day second hand exposure: Yes alcohol intake: current alcohol intake frequency: holidays/special occasions only substance use type: does not use ROS <WILDER Mishra - Last Filed: 06/30/24 15:15> ROS ED ROS Narrative Constitutional: Negative for fever, chills, weight loss, weakness Eyes: Negative for vision loss, vision change, double vision ENT: Negative for any sore throat, ear pain, congestion Cardiovascular: Negative for any tightness, palpitations. Positive for chest pain Respiratory: Negative for any cough, sputum production, hemoptysis, dyspnea, dyspnea on exertion, orthopnea Gastrointestinal: Negative for any abdominal pain, nausea, vomiting, diarrhea, constipation, blood in stool, blood in vomit : Negative for any urinary frequency, dysuria, retention, blood in urine Muscle skeletal: Negative for any neck pain, back pain. Positive for leg pain Neurological: Negative for any headache, syncope, dizziness Skin: Negative for any rashes, itching, abrasions, lacerations Psychiatric: Negative for any depression, anxiety, stress, suicidal ideation, homicidal ideation Hematologic: Negative for any excessive bruising, easy bleeding EXAM <WILDER Mishra - Last Filed: 06/30/24 15:15> Physical Exam Narrative Exam Narrative: Vital signs reviewed. On initial evaluation, the patient is tachycardic, altered, alert and oriented x 1-2. Patient is unable to tell the year, she states that her legs hurt. HEET: Head normocephalic atraumatic, TMs clear bilaterally. Posterior pharynx is clear, dry mucous membranes. Nares clear bilaterally. Neck: Supple with no lymphadenopathy or tenderness. No signs of meningismus. Cardiac: Tachycardic rate no murmurs gallops or rubs, equal peripheral pulses bilaterally. Respiratory: Diminished lung sounds to bilateral bases. No chest tenderness. Abdomen: Soft, nontender. Patient's abdomen does show some fluid overload, pitting edema. No abdominal bruit or pulsatile masses. No hepatosplenomegaly Extremities: +4 pitting edema to bilateral lower extremities. On the right leg, there is an open wound with significant cellulitis to the right mid tibial area. The cellulitis goes from the ankle all the way up to the knee. Neuro: Cranial nerves II through XII intact, no focal neurological deficits. Skin: Clean dry and intact with no rash, purpura, petechiae, vesicles or pustules. Backs/flank: No CVA tenderness, no midline spinal tenderness, no deformity. Psych: Normal mood and affect. No SI, HI or acute psychosis. Const Vital Signs: 06/30/24 12:27 06/30/24 12:45 06/30/24 12:45 Temperature 98.4 F 98.4 F Temperature Source Oral Oral Pulse Rate 150 H 141 H Respiratory Rate 34 H 25 H Respiratory Pattern Blood Pressure 146/74 H Blood Pressure Mean 98 Pulse Ox 97 98 97 Oxygen Delivery Method Nasal Cannula Nasal Cannula Nasal Cannula Oxygen Flow Rate (L/min) 4 4 2 06/30/24 12:45 06/30/24 12:49 06/30/24 15:07 Temperature 98.4 F 98.8 F Temperature Source Oral Oral Pulse Rate 141 H 144 H Respiratory Rate 25 H 36 H Respiratory Pattern Tachypnea Blood Pressure 146/74 H 113/99 H Blood Pressure Mean 98 103 Pulse Ox 98 95 Oxygen Delivery Method Nasal Cannula Oxygen Flow Rate (L/min) 4 06/30/24 15:59 Temperature 98.8 F Temperature Source Pulse Rate 135 H Respiratory Rate 28 H Respiratory Pattern Blood Pressure 130/71 H Blood Pressure Mean 90 Pulse Ox 98 Oxygen Delivery Method Oxygen Flow Rate (L/min) Positive obese Nutritional Appearance: obese <Dr. Tres Cronin MD - Last Filed: 06/30/24 16:34> Physical Exam Const Vital Signs: 06/30/24 12:27 06/30/24 12:45 06/30/24 12:45 Temperature 98.4 F 98.4 F Temperature Source Oral Oral Pulse Rate 150 H 141 H Respiratory Rate 34 H 25 H Respiratory Pattern Blood Pressure 146/74 H Blood Pressure Mean 98 Pulse Ox 97 98 97 Oxygen Delivery Method Nasal Cannula Nasal Cannula Nasal Cannula Oxygen Flow Rate (L/min) 4 4 2 06/30/24 12:45 06/30/24 12:49 06/30/24 15:07 Temperature 98.4 F 98.8 F Temperature Source Oral Oral Pulse Rate 141 H 144 H Respiratory Rate 25 H 36 H Respiratory Pattern Tachypnea Blood Pressure 146/74 H 113/99 H Blood Pressure Mean 98 103 Pulse Ox 98 95 Oxygen Delivery Method Nasal Cannula Oxygen Flow Rate (L/min) 4 06/30/24 15:59 Temperature 98.8 F Temperature Source Pulse Rate 135 H Respiratory Rate 28 H Respiratory Pattern Blood Pressure 130/71 H Blood Pressure Mean 90 Pulse Ox 98 Oxygen Delivery Method Oxygen Flow Rate (L/min) Sepsis Attestation <Dr. Tres Cronin MD - Last Filed: 06/30/24 16:34> Sepsis Alert: Yes Sepsis Attestation: Agree w/Sepsis Date exam was performed: 06/30/24 Time exam was performed: 14:00 Possible Source of Sepsis: Skin/soft tissue and Wound Sepsis Organ Dysfunction Criteria Present: Lactic Acid > 2 mmol/L and New/Unexplained change in mental status Fluid Resuscitation Fluid resuscitation indicated?: Yes Fluid Resuscitation ordered: Lesser volume fluid bolus ordered Amount of fluid ordered: 500 Reason for lesser fluid bolus:: Concern for fluid overload and Heart failure MDM <WILDER Mishra - Last Filed: 06/30/24 15:15> [facility] Lab Data Labs: Laboratory Results - last 24 hr 06/30/24 06/30/24 06/30/24 12:40 12:58 15:00 WBC 9.9 RBC 4.04 L Hgb 11.7 L Hct 36.5 L MCV 90.3 MCH 29.0 MCHC 32.1 RDW Std Deviation 50.9 H RDW Coeff of Sudha 15.4 H Plt Count 216 MPV 10.8 Immature Gran % (Auto) 0.800 Neut % (Auto) 85.8 H Lymph % (Auto) 4.6 L Barnes % (Auto) 8.2 Eos % (Auto) 0.0 Baso % (Auto) 0.6 Absolute Neuts (auto) 8.5 H Absolute Lymphs (auto) 0.46 L Nucleated RBC % 0 Platelet Estimate ADEQUATE Polychromasia 1+ Anisocytosis 1+ Sodium 136 Potassium 4.6 Chloride 99 Carbon Dioxide 21.6 Anion Gap 15 BUN 27 H Creatinine 1.73 H Estim Creat Clear Calc 32.21 L Est GFR (MDRD) Non-Af 29 L BUN/Creatinine Ratio 15.6 Glucose 271 H Lactic Acid 2.4 H* Calcium 9.2 Total Creatine Kinase 66 Troponin T High Sens 155 H* Troponin T Hi Sens 2 Hr 137 H* [place] [address] H Procalcitonin 0.73 H Urine Color Yellow Urine Clarity Clear Urine pH 6.0 Ur Specific Bonanza 1.020 Urine Protein 500 H Urine Glucose (UA) 250 H Urine Ketones Negative Urine Occult Blood 25 H Urine Nitrite Negative Urine Bilirubin Negative Urine Urobilinogen 1 H Ur Leukocyte Esterase 25 H Urine RBC 0 SEEN Urine WBC 5-10 SEEN Ur Squamous Epith Cells 0-5 SEEN Urine Bacteria 0 SEEN Hyaline Casts 0-5 SEEN Fine Granular Casts 0-5 SEEN Coarse Granular Casts 10-25 SEEN Urine Mucus 0 SEEN ABG Data ABG results: ABG 06/30/24 13:22 Specimen Type ART Sample Site L Brach pH 7.50 H Bicarbonate Actual 25.1 Total CO2 26 Base Excess 2 O2 Saturation 98 O2 % 4.0 ABG pCO2 32.0 L ABG pO2 98 O2 Delivery Device Cannula Vent Mode Not entered Radiography Diagnostic Testing: Clinical Impression(s) from Imaging Studies Brain CT 06/30/24 12:40 IMPRESSION: CHRONIC CHANGES. Questionable lacunar infarct in the head of the left caudate nucleus. Reading Location: [place] [address] Chest X-Ray 06/30/24 13:33 IMPRESSION: Stable pleural-parenchymal changes at the left lung base with increased markings at the right lung base suggestive of atelectasis and/or early infiltrate with superimposed mild degree of CHF. Cardiomegaly. Reading Location: [facility]- Tibia/Fibula X-Ray 06/30/24 13:42 IMPRESSION: Diffuse soft tissue swelling. No bony abnormality is seen. Reading Location: [id number] EKG EKG shows atrial fibrillation with RVR: Attestation: I personally reviewed and interpreted this EKG as follows: Interpretation: Atrial Fibrillation Comments: Atrial fibrillation with rapid ventricular response, rate 140 bpm, QRS duration 130 ms, no acute ST elevation, no acute infarct noted. Treatment and Re-Evaluation :: Differential diagnosis includes however is not limited to: Sepsis, right leg cellulitis, anasarca, fluid overload, UTI, A-fib with RVR, respiratory failure, rhabdomyolysis, electrolyte abnormality Patient on my initial evaluation did appear ill-appearing. Patient does have tachycardia, altered mental status, obvious sign infection of the right lower extremity. Patient will receive a full septic workup including 2 sets of blood cultures, lactic acid, procalcitonin. Patient was complaining of chest pain, patient will receive troponins as well as other laboratory values. CK total will also be ordered. Patient received a CT scan of the brain as well as a chest x-ray. Patient is anticoagulated from her previous list on Eliquis. Patient will need to be admitted to the hospital. On reevaluation, patient is still alert and orient x 2. Patient heart rate in the 130s. Patient CT scan of the brain showed no acute process, there is a questionable lacunar infarct in the head of the left conduit nucleus. Patient's chest x-ray showed stable pleural parenchymal changes in the left lung base with increased markings at the right lung base suggestive of atelectasis and/or early infiltrate with superimposed mild degree of CHF. Patient has history of this. Patient's x-ray of the right tibia-fibula shows no free gas. Patient's laboratory values shows stable anemia 11.7, patient's chemistry shows stable chronic renal sufficiency with a creatinine of 1.7, patient glucose 221 lactic acid elevated 2.4 troponin was 155, this could be secondary to demand. proBNP is 1 13,980, procalcitonin was elevated. IV Unasyn, vancomycin was ordered. COVID-19 flu and RSV was negative. Patient remains 98% 4 L. Patient was given 500 cc of normal saline, patient not receive the 30 mL/kg secondary to the patient's history of CHF as well as the chest x-ray showing some CHF fluid overload. Patient will need to be admitted to the hospital. I will reach out to the hospitalist <Dr. Tres Cronin MD - Last Filed: 06/30/24 16:34> MDM MDM Narrative Medical decision making narrative: I have personally performed a face to face assessment of the patient and have reviewed the SANDRO Note. I performed a substantive portion of the visit including all aspects of the following. My flores findings include: History is confused/altered, found sitting on toilet too weak to get up, last seen normal yesterday afternoon by same friend. History is limited from the patient due to confusion/altered LOC, but she states that her left leg hurts, which ended up actually being her right leg. She denies headache, chest pain right now, abdominal pain but states she had some dry heaving earlier this morning. Exam is lethargic easily awakens to voice, can follow commands, confused but otherwise speech is normal, GCS 13. Tachycardic and irregular, lungs fairly clear and in no respiratory distress, but a little tachypneic. Abdomen obese soft nontender. Legs: There appears to be some chronic stasis dermatitis, however the right leg is significantly more erythematous and tender whereas the left leg is nontender. There is a small ulcerative wound anterior mid right salazar, around which all of this tenderness, swelling, erythema is centered and it is all very tender. There is no subcutaneous emphysema. There is no lymphangitis. There is no discharge expressible from the ulcerative wound or clinical evidence of an abscess. Medical Decison Making this patient appears to be septic, I agree with obtaining a septic workup, including a CT of the head, chest x-ray given history of diastolic heart failure and severe tricuspid regurgitation seen on her prior echo last year, and empiric antibiotics for what appears to be right lower leg cellulitis presumably related to this shallow open wound. Given her apparent anasarca, tachycardia, tachypnea, with stable blood pressure, we elected to hold off on IV fluids until we had more information/testing on her cardiopulmonary status. Patient does have mild congestion on 1 view chest x-ray my interpretation as confirmed by radiology, but she does not sound wet. She is very tachycardic, her lactate is elevated, 2 view x-ray series of the right lower leg shows no subcutaneous air on my interpretation, therefore this is inconsistent with necrotizing fasciitis, the erythema is no different on my reevaluation, and I reviewed the head CT images and I agree with the results, negative for any acute. Will treat for sepsis with Unasyn according to protocol, there was a wound culture in November 2023 that showed some MRSA among other bacteria, so we will add vancomycin to that. Will give her some IV fluids to help her heart rate but only 500 cc due to elevated BNP which may or may not be related to her chronic renal sufficiency, and mildly wet appearing chest x-ray. Will admit to ICU given her mental status/level of consciousness. Considered putting her on a Cardizem drip, but if her heart rate is high due to sepsis, do not want to suppress her compensatory mechanism, so we held off on rate control for now. Additionally, she does not appear to have respiratory distress although she is a little tachypneic, and her lungs sound clear, and she is on 4 L of oxygen at baseline and currently on that amount of oxygen is not hypoxic. For these reasons are not treating her as a primary congestive heart failure issue because I feel she is more likely to be septic and I do not want to make her worse by overloading her with fluids or by diuresing her. After the initial 500 cc of fluid, her pressures are still holding stable, her heart rate is down to around the 130s, respiratory rate is improved but still tachypneic in the 20s and her oxygenation is good. Will give her some more fluid and see if that continues to help while she is boarding in the emergency department and waiting to go upstairs to bed. Some family arrived, son-in-law one of the HCPOA's, they are aware that the patient has a living will but unaware of any of the details or if it says the patient is DNR. We attempted to asked the patient but she is too somnolent and confused to answer. At this time I discussed with the family that we will keep her a full code until we know otherwise, family was going to contact mother family members that are out of town for more details. Other additions or changes: [None] History & Record Review Additional record(s) reviewed:: Prior outpatient record (Echocardiogram 2023) Lab Data Labs: Laboratory Results - last 24 hr 06/30/24 06/30/24 06/30/24 12:40 12:58 15:00 WBC 9.9 RBC 4.04 L Hgb 11.7 L Hct 36.5 L MCV 90.3 MCH 29.0 MCHC 32.1 RDW Std Deviation 50.9 H RDW Coeff of Sudha 15.4 H Plt Count 216 MPV 10.8 Immature Gran % (Auto) 0.800 Neut % (Auto) 85.8 H Lymph % (Auto) 4.6 L Barnes % (Auto) 8.2 Eos % (Auto) 0.0 Baso % (Auto) 0.6 Absolute Neuts (auto) 8.5 H Absolute Lymphs (auto) 0.46 L Nucleated RBC % 0 Platelet Estimate ADEQUATE Polychromasia 1+ Anisocytosis 1+ Sodium 136 Potassium 4.6 Chloride 99 Carbon Dioxide 21.6 Anion Gap 15 BUN 27 H Creatinine 1.73 H Estim Creat Clear Calc 32.21 L Est GFR (MDRD) Non-Af 29 L BUN/Creatinine Ratio 15.6 Glucose 271 H Lactic Acid 2.4 H* Calcium 9.2 Total Creatine Kinase 66 Troponin T High Sens 155 H* Troponin T Hi Sens 2 Hr 137 H* [place] [address] H Procalcitonin 0.73 H Urine Color Yellow Urine Clarity Clear Urine pH 6.0 Ur Specific Bonanza 1.020 Urine Protein 500 H Urine Glucose (UA) 250 H Urine Ketones Negative Urine Occult Blood 25 H Urine Nitrite Negative Urine Bilirubin Negative Urine Urobilinogen 1 H Ur Leukocyte Esterase 25 H Urine RBC 0 SEEN Urine WBC 5-10 SEEN Ur Squamous Epith Cells 0-5 SEEN Urine Bacteria 0 SEEN Hyaline Casts 0-5 SEEN Fine Granular Casts 0-5 SEEN Coarse Granular Casts 10-25 SEEN Urine Mucus 0 SEEN ABG Data ABG results: ABG 06/30/24 13:22 Specimen Type ART Sample Site L Brach pH 7.50 H Bicarbonate Actual 25.1 Total CO2 26 Base Excess 2 O2 Saturation 98 O2 % 4.0 ABG pCO2 32.0 L ABG pO2 98 O2 Delivery Device Cannula Vent Mode Not entered Radiography Diagnostic Testing: Clinical Impression(s) from Imaging Studies Brain CT 06/30/24 12:40 IMPRESSION: CHRONIC CHANGES. Questionable lacunar infarct in the head of the left caudate nucleus. Reading Location: [facility] Chest X-Ray 06/30/24 13:33 IMPRESSION: Stable pleural-parenchymal changes at the left lung base with increased markings at the right lung base suggestive of atelectasis and/or early infiltrate with superimposed mild degree of CHF. Cardiomegaly. Reading Location: [facility]--1 Tibia/Fibula X-Ray 06/30/24 13:42 IMPRESSION: Diffuse soft tissue swelling. No bony abnormality is seen. Reading Location: [facility]--1 Management Discussion w/another healthcare provider: Hospitalist Discharge Plan Dx/Rx/DC Orders Clinical Impression: Sepsis, Encephalopathy acute, Cellulitis of right lower leg, Atrial fibrillation with RVR, Acute on chronic diastolic (congestive) heart failure Disposition Disposition: Acute Care Hospital [facility]
[2024-06-30 13:06] LABS: Bacteria 0 SEEN /hpf (None Seen); Mucous, Urine 0 SEEN /hpf (<or=2+); Red Blood Cells-Urine 0 SEEN /hpf (0-5)
[2024-06-30 13:08] LABS: Color, Urine Yellow (Yellow); Glucose, Dipstick 250 mg/dl (Normal); Ketone-Dipstick Negative (Negative); Leukocyte Esterase-Dipstick 25 /ul (Negative); Nitrite-Dipstick Negative (Negative); Occult Blood-Urine 25 /ul (Negative); Protein-Dipstick 500 mg/dl (Negative); Urine Bilirubin Dipstick Negative (Negative); Urine Clarity Clear (Clear); Urine Urobilinogen 1 mg/dl (Normal)
[2024-06-30 13:09] LABS: Absolute Lymphocyte Count 0.46 X10^3/uL (0.83-4.51); Absolute Neutrophil Count 8.5 X10^3/uL (2.0-7.7); Basophil# 0.06 X10^3/uL; Basophil% 0.6 % (0-1); Hematocrit 36.5 % (37-47); Hemoglobin 11.7 g/dL (12.0-15.0); Lymphocyte # 0.46 X10^3/ul (0.83-4.51); Lymphocyte % 4.6 % (19-41); Mean Corp Hgb Conc 32.1 g/dL (32-36); Mean Corpuscular Volume 90.3 fL (81-99); Mean Platelet Vol. 10.8 fl (6.2-12.0); Monocyte# 0.81 X10^3/uL; Monocyte% 8.2 % (0-10); NRBC Flagged by Analyzer 0 % (0-5); Neutrophil # 8.52 X10^3/uL (2.7-7.7); Neutrophil % 85.8 % (47-70); POSITIVE DIFFERENTIAL YES; POSITIVE MORPHOLOGY YES; Platelet Count 216 K/mm3 (150-450); RBC Distribution Width CV 15.4 % (11.6-14.6); RBC Distribution Width SD 50.9 fl (35.1-43.9); Red Blood Count 4.04 M/mm3 (4.2-5.4); White Blood Count 9.9 K/mm3 (4.4-11.0)
[2024-06-30 13:21] LABS: White Blood Cells 5-10 SEEN /hpf (0-5)
[2024-06-30 13:22] LABS: Coarse Granular Cast 10-25 SEEN /lpf (0-5 /lpf); Squamous Epithelial Cells - UA 0-5 SEEN /hpf (5-10)
[2024-06-30 13:23] LABS: Fine Granular Cast- Urine 0-5 SEEN /lpf (0-5); Hyaline Cast 0-5 SEEN /lpf (0-5)
[2024-06-30 13:25] LABS: Base Excess 2 mmol/L (-2 to +2); Bicarbonate 25.1 mmol/L (22-26); Blood Gas Specimen Type ART; Mode Not entered; O2 Delivery Device Cannula; PO2 98 mmHG (75-100); SITE L Brach; SO2 98 % (95-99); Total Carbon Dioxide 26 mmol/L
--- NOTE | 2024-06-30 13:33 | RAD_ITS ---
PROCEDURE: CHEST 1 VIEW (PORTABLE) 06/30/2024 REASON FOR EXAM: CHEST PAIN Shortness of breath. TECHNIQUE: Frontal view of the chest. COMPARISON: Comparison is made with prior study dated April 2024. FINDINGS: Hardware: EKG electrodes are seen. Heart: Heart size is mildly enlarged. Lungs: Stable pleural-parenchymal changes at the left lung base. Increased markings at the right lung base suggestive of atelectasis and/or early infiltrate with mild degree of vascular congestion. Bones: Degenerative changes are identified within the thoracic spine. Other: RAD/Chest 1 View (Portable) IMPRESSION: Stable pleural-parenchymal changes at the left lung base with increased marking s at the right lung base suggestive of atelectasis and/or early infiltrate with superimposed mild degree of CHF. Cardiomegaly. Reading Location: [place] [id number]
--- NOTE | 2024-06-30 13:42 | RAD_ITS ---
EXAM: Right tibia and fibula. CLINICAL HISTORY: Pain/infection. COMPARISON: None TECHNIQUE: Four views of the tibia and fibula were obtained. FINDINGS: Diffuse soft tissue swelling. No bony abnormality is seen. RAD/Tibia & Fibula 2 Views IMPRESSION: Diffuse soft tissue swelling. No bony abnormality is seen. Reading Location: [place] [address]
[2024-06-30 14:07] LABS: Lactic Acid 2.4 mmol/L (0.0-2.0); Platelet Estimate ADEQUATE (ADEQ)
[2024-06-30 14:08] LABS: Anisocytosis 1+; Polychromasia 1+
[2024-06-30 14:09] LABS: Anion Gap 15 (5-15); BUN 27 mg/dL (4-19); BUN/Creat Ratio 15.6 RATIO (10-20); CPK Total, Creatine Kinase 66 U/L (24-195); Calcium,Total 9.2 mg/dL (7.6-11.0); Carbon Dioxide 21.6 mmol/L (21.0-32.0); Chloride 99 mmol/L (98-108); Creatinine, Serum 1.73 mg/dL (0.70-1.20); EST Glomerular Filtration Rate 29 (>60); Estimated Creatinine Clearance 32.21 ml/min (50-250); Glucose 271 mg/dL (70-99); Potassium 4.6 mmol/L (3.3-5.1); Pro- Brain NATRIURETIC PEPTIDE 13980 pg/mL (<=1800); Sodium Level 136 mmol/L (133-145)
[2024-06-30 14:18] LABS: Procalcitonin 0.73 ng/mL (<=0.10); Troponin T High Sensitivity 155 ng/L (<=14)
[2024-06-30] MEDS: Ampicillin/Sulbactam 3 GM in 0.9% Normal Saline (100mL MB+) 100 ML IV ×2 (14:46→21:07)
[2024-06-30] MEDS: 0.9% Normal Saline (500mL Bag) 500 ML 999 ML IV ×2 (14:50→17:03)
--- NOTE | 2024-06-30 14:57 | PCM.HP.STD ---
HPI - General General Date of Admission: 06/30/24 Date of Service: 06/30/24 Chief Complaint: Confused, weak. HPI Narrative The patient is an 84 y/o F w/ PMHx: Obesity, PAF, COPD/Asthma with Chronic Hypoxic Respiratory Failure (4L NC), HTN, HLD, HFpEF, RLS, IDDM, Chronic anemia/Fe deficiency anemia, Rheumatoid arthritis, Valvular Heart Disease, CKD stage III unclear subtype per GFR trending, Former tobacco use, Hypothyroidism, Hx Breast CA unclear type who presents to the [facility] ED on 06/30/24 with history of weakness and altered mental status noted to have been on the toilet when the squad arrived for unclear duration noted to be alert and oriented x 1-2 for them which is not normal for the patient prompting transition to the ED for evaluation. Patient per discussion with family present last known normal for cardiac catheterization early in the morning the day prior on 06/29/2024 which she was having done in preparation for tricuspid valve potential intervention with noted moderate pulmonary hypertension. Most recent evaluation by cardiology outpatient 06/26/24 with planned right heart cath which was noted above in preparation for evaluation by Dr. Quick at [facility] about having this special TTVR procedure. In the ED patient is encephalopathic with notable right lower extremity cellulitis and a small ulcerating room with no drainage with leg significantly warm to touch. Workup in the ED included T98.4, heart 150, BP 146/74, respiratory rate 34, 97% on 4 L nasal cannula with most noted previous to this on 04/28/2024 patient usage of 4 L nasal cannula, most recent repeat vitals T98.4, heart 141, BP 146/74, respiratory rate 25, 98% on 4 L, CBC with WBC 9.9, he 1 11.7, MCV 90.3, platelet 216 with left shift and lymphopenia, ABG with pH 7.50, pCO2 32 otherwise not marked appearing, BMP with BUN/creatinine 27/1.73, GFR 29, glucose 271, lactic acid 2.4, initial troponin 155, BNP 74621, procalcitonin 0.73, total creatinine kinase 66, urinalysis with specific gravity 1.20, protein 500, glucose 250, negative ketone, occult blood 25, negative nitrite, negative leukocyte esterase with no marked findings consistent with UTI, CT of the brain with questionable lacunar infarct in the head of the left caudate nucleus, chest x-ray with stable pleural-parenchymal changes in the left lung base with increased markings in the right lung base suggestive of atelectasis versus early infiltrate superimposed with mild degree of CHF, cardiomegaly, plain film of the right tibia and fibula with diffuse soft tissue swelling with no bony abnormality, EKG with atrial fibrillation with RVR. In the ED patient ministered Unasyn 3 g IV x 1, Tylenol 1000 g p.o. x 1 and initially 500 ml normal saline. [facility] Medical History SOB (shortness of breath) (HFpEF) heart failure with preserved ejection fraction CHF (congestive heart failure) Chronic respiratory failure with hypoxia and hypercapnia Anticoagulated Asthma CHF exacerbation Congestive heart failure (CHF) IDDM (insulin dependent diabetes mellitus) Diabetes Rheumatoid arthritis On home oxygen therapy Low iron Insulin dependent diabetes mellitus Wears glasses Wears dentures Cancer History of steroid therapy History of renal disease High cholesterol Restless legs Injury of back Back pain Dietary restriction Shortness of breath on exertion History of pain when walking History of edema History of echocardiogram History of stress test Cardiology follow-up encounter History of CHF (congestive heart failure) History of atrial fibrillation Hyperlipidemia Overactive bladder Hypothyroidism Diabetes mellitus Hypertension Chronic kidney disease, stage 3b Former smoker Atrial fibrillation Hypertension Chronic anticoagulation Skin cancer, basal cell Actinic keratosis Skin lesion Skin cancer Chronic diastolic (congestive) heart failure Longstanding persistent atrial fibrillation Diastolic dysfunction Secondary pulmonary arterial hypertension Non-rheumatic tricuspid valve insufficiency Stage 2 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 Right hip pain Disc degeneration, lumbar Fatigue UTI (urinary tract infection) Hypoxia Hypersomnia COPD (chronic obstructive pulmonary disease) Obesity Tobacco dependence in remission CKD (chronic kidney disease) stage 3, GFR 30-59 ml/min Breast cancer Essential (primary) hypertension BMI 39.0-39.9,adult Erosion of bladder suspension mesh SHAKIRA (stress urinary incontinence, female) Home Medications ?Medication ?Instructions ?Recorded ?Last Taken ?Type apixaban 2.5 mg tablet (Eliquis) 2.5 mg PO BID blood thinner 08/20/23 06/26/24 History sacubitril 49 mg-valsartan 51 mg 1 tab PO BID heart 10/21/23 04/24/24 History tablet (Entresto) rosuvastatin 40 mg tablet 40 mg PO QHS cholesterol 12/02/23 04/24/24 History insulin degludec 100 unit/mL (3 20 unit subcut BID diabetes 12/26/23 06/28/24 History mL) subcutaneous pen (Tresiba FlexTouch U-100 insulin) cholecalciferol (vitamin D3) 25 25 mcg PO DAILY supplement 01/20/24 04/24/24 History mcg (1,000 unit) capsule (Vitamin D3) glimepiride 1 mg tablet 1 mg PO DAILY hyperglycemia 03/16/24 06/28/24 History vibegron 75 mg tablet (Gemtesa) 75 mg PO DAILY follow up needed 04/01/24 04/24/24 History potassium chloride 20 mEq 20 meq PO DAILY hypokalemia 04/05/24 04/24/24 History tablet,extended release(part/cryst) acetaminophen 500 mg tablet 1,000 mg (2 x 500 mg) PO Q8 PRN 04/07/24 Unknown Rx arthiritis pain #0 tabs furosemide 40 mg tablet 80 mg PO DAILY swelling 04/25/24 04/24/24 History metoprolol tartrate 100 mg tablet 100 mg PO BID heart 04/25/24 06/29/24 History levothyroxine 200 mcg tablet 200 mcg PO DAILY thyroid 05/14/24 Unknown History levothyroxine 50 mcg tablet 50 mcg PO DAILY 05/14/24 Unknown History diltiazem HCl 240 mg 240 mg PO DAILY heart #90 caps 06/05/24 06/29/24 Rx capsule,extended release 24 hr albuterol sulfate 90 mcg/actuation 2 puff inhalation Q4H PRN 06/30/24 Unknown History aerosol inhaler shortness of breath or wheezing spironolactone 25 mg tablet 25 mg PO DAILY 06/30/24 Unknown History Allergy/AdvReac Type Severity Reaction Status Date / Time Sulfa (Sulfonamide Allergy PEELING Verified 06/26/24 14:01 Antibiotics) RASH Family History Mother Colon cancer Cancer skin, bladder Daughter Cancer Thyroid Sister CAD (coronary artery disease) Surgical History History of surgery Hx of colonoscopy Hx of right cataract extraction Hx of left cataract extraction History of excision of lesion Hx of local excision of skin lesion History of cardioversion (03/20/19) History of hysterectomy History of partial mastectomy History of left heart catheterization (05/31/14) Social History household members: none housing: house current occupational status: retired Smoking Status: Former smoker how long ago did patient quit smokin, 2p/day second hand exposure: Yes alcohol intake: current alcohol intake frequency: holidays/special occasions only substance use type: does not use ROS Review of Systems ROS Unobtainable: due to encephalopathy Vital Signs Vital Signs Vital Signs: 06/30/24 12:27 06/30/24 12:45 06/30/24 12:45 Temperature 98.4 F 98.4 F Temperature Source Oral Oral Pulse Rate 150 H 141 H Respiratory Rate 34 H 25 H Respiratory Pattern Blood Pressure 146/74 H Blood Pressure Mean 98 Pulse Ox 97 98 97 Oxygen Delivery Method Nasal Cannula Nasal Cannula Nasal Cannula Oxygen Flow Rate (L/min) 4 4 2 06/30/24 12:45 06/30/24 12:49 Temperature 98.4 F Temperature Source Oral Pulse Rate 141 H Respiratory Rate 25 H Respiratory Pattern Tachypnea Blood Pressure 146/74 H Blood Pressure Mean 98 Pulse Ox 98 Oxygen Delivery Method Nasal Cannula Oxygen Flow Rate (L/min) 4 Weight Weight: 261 lb 11.019 oz Body Mass Index (BMI) 39.6 Physical Exam Narrative Physical Examination: General: Awakens to similar very lethargic, not alert, not oriented, following some commands, laying in the ED bed, fatigued, ill-appearing, mildly disheveled, ill-appearing. Skin: Normal color, normal turgor, no icterus, no cyanosis except occasional stage ecchymoses, abrasion, bilateral lower extremity venous stasis skin changes and significant right lower extremity anterior salazar erythema, increased warmth to touch, small anterior dime sized ulcerating wound with no marked discharge at this time. HEENT: AT/NC, EOMI, PERRLA, mildly dry MM, no carotid bruits or marked JVD noted; however, thickened neck makes evaluation difficult. Lungs: Diminished, greater bases, mildly increased respiratory rate but no distress, on chronic 4 L nasal cannula, no rales, ronchi or wheezing. Heart: Irregular irregular; no gallop, rub audible, + DM. Abdomen: Soft, obese, NTTP, ND, hyperactive BS, no appreciated HSM; however habitus makes evaluation difficult. Extremities: No cyanosis, no clubbing, pedal to proximal salazar 3+ chronic pitting edema, see skin. Neurological: Awakens to similar very lethargic, not alert, not oriented, following some commands, laying in the ED bed, fatigued, ill-appearing, mildly disheveled, ill-appearing, cognitive function not baseline intact; pupils equally reactive to light and accommodation, cranial nerves gross normal difficult valuation given encephalopathy, spontaneously moving all 4 extremities, no focal deficits, strength severely globally decreased. Psychiatric: Affect appears flat, fatigued, ill-appearing, no acute evidence of depressive or anxiety feelings. Results Lab / Micro Data 06/30/24 12:40 06/30/24 12:40 Labs: Laboratory Results - last 24 hr 06/30/24 12:40: WBC 9.9, RBC 4.04 L, Hgb 11.7 L, Hct 36.5 L, MCV 90.3, MCH 29.0, MCHC 32.1, RDW Std Deviation 50.9 H, RDW Coeff of Sudha 15.4 H, Plt Count 216, MPV 10.8, Immature Gran % (Auto) 0.800, Neut % (Auto) 85.8 H, Lymph % (Auto) 4.6 L, Vance % (Auto) 8.2, Eos % (Auto) 0.0, Baso % (Auto) 0.6, Absolute Neuts (auto) 8.5 H, Absolute Lymphs (auto) 0.46 L, Nucleated RBC % 0, Platelet Estimate ADEQUATE, Polychromasia 1+, Anisocytosis 1+, Sodium 136, Potassium 4.6, Chloride 99, Carbon Dioxide 21.6, Anion Gap 15, BUN 27 H, Creatinine 1.73 H, Estim Creat Clear Calc 32.21 L, Est GFR (MDRD) Non-Af 29 L, BUN/Creatinine Ratio 15.6, Glucose 271 H, Lactic Acid 2.4 H*, Calcium 9.2, Total Creatine Kinase 66, Troponin T High Sens 155 H*, [place] [address] H, Procalcitonin 0.73 H 06/30/24 12:58: Urine Color Yellow, Urine Clarity Clear, Urine pH 6.0, Ur Specific Moffat 1.020, Urine Protein 500 H, Urine Glucose (UA) 250 H, Urine Ketones Negative, Urine Occult Blood 25 H, Urine Nitrite Negative, Urine Bilirubin Negative, Urine Urobilinogen 1 H, Ur Leukocyte Esterase 25 H, Urine RBC 0 SEEN, Urine WBC 5-10 SEEN, Ur Squamous Epith Cells 0-5 SEEN, Urine Bacteria 0 SEEN, Hyaline Casts 0-5 SEEN, Fine Granular Casts 0-5 SEEN, Coarse Granular Casts 10-25 SEEN, Urine Mucus 0 SEEN Micro: Microbiology 06/30/24 12:52 Mucosa - Nose SARS-CoV-2, Influenza & RSV (PCR) - Final ABG Data ABG results: ABG 06/30/24 13:22 Specimen Type ART Sample Site L Brach pH 7.50 H Bicarbonate Actual 25.1 Total CO2 26 Base Excess 2 O2 Saturation 98 O2 % 4.0 ABG pCO2 32.0 L ABG pO2 98 O2 Delivery Device Cannula Vent Mode Not entered Imaging Radiology Impression Brain CT 06/30/24 12:40 IMPRESSION: CHRONIC CHANGES. Questionable lacunar infarct in the head of the left caudate nucleus. Reading Location: [facility] Chest X-Ray 06/30/24 13:33 IMPRESSION: Stable pleural-parenchymal changes at the left lung base with increased markings at the right lung base suggestive of atelectasis and/or early infiltrate with superimposed mild degree of CHF. Cardiomegaly. Reading Location: [facility] Tibia/Fibula X-Ray 06/30/24 13:42 IMPRESSION: Diffuse soft tissue swelling. No bony abnormality is seen. Reading Location: [facility] Assessment & Plan Assessment/Plan (1) Acute on chronic diastolic (congestive) heart failure: (2) Atrial fibrillation with RVR: (3) Cellulitis of right lower leg: (4) Encephalopathy acute: (5) Sepsis: PLAN: Plan The patient is an 84 y/o F w/ PMHx: Obesity, PAF, COPD/Asthma with Chronic Hypoxic Respiratory Failure (4L NC), HTN, HLD, HFpEF, RLS, IDDM, Chronic anemia/Fe deficiency anemia, Rheumatoid arthritis, Valvular Heart Disease, CKD stage III unclear subtype per GFR trending, Former tobacco use, Hypothyroidism, Hx Breast CA unclear type who presents to the [facility] ED on 06/30/24 with history of weakness and altered mental status noted to have been on the toilet when the squad arrived for unclear duration noted to be alert and oriented x 1-2 for them which is not normal for the patient prompting transition to the ED for evaluation. #1. Acute Sepsis secondary to Acute encephalopathy secondary to right lower extremity cellulitis (2 SIRS, confirmed infection, mild lactic acidosis, significant encephalopathy): Will admit to the ICU given septic appearance, maintain on IV Unasyn with MRSA screen requested, will obtain Wound Cx, will obtain Wound MRSA PCR as able, plan repeat CBC in AM, continue affected extremity elevation above heart when seated and in bed, monitor erythema outline with VS checks, unclear if patient has been compliant with her NOAC, will obtain duplex of the RLE to be cautious. #2. Acute atrial fibrillation with RVR with indeterminate cardiac enzymes of unclear significance: EKG in ED w/ atrial fibrillation w/ RVR, initial troponin 155, repeat delta 137. Patient administered IV fluids only given #1 in ED. Will maintain on telemetry, obtain cardiac enzyme serial set, obtain magnesium level, obtain TSH level. Last ECHO in system 12/2023, will request repeat. Patient is normally on Eliquis regimen as well as diltiazem and metoprolol significant high dose, will need to monitor if ability for appropriate oral intake and if not we will need to transition to IV version, may need to consider drip possibly amiodarone which from record she has been on previously. If needed may consider cardiology involvement. If unable to take oral will need to transition to alternate option for anticoagulation #3. Acute on chronic HFpEF exacerbation, decompensated complicated in large part by #4: Chest x-ray with some concern for overload, BNP notably elevated 13 980 however will avoid diuresis given significant presentation #1 and need for judicious fluids, once able may certainly consider diuresis but a lot of her distal extremity edema and anasarca is likely secondary to her underlying valvular heart disease. Will monitor weights, continue NOAC's as able otherwise may need to transition to IV version temporarily versus subcu, continue once able patient's statin, spironolactone, metoprolol, Lasix, Entresto home regimen. #4. Valvular heart disease: Patient with notable underlying disease with planned upcoming replacement, cardiac catheterization with noted moderate pulmonary hypertension in preparation. Most recent documented echocardiogram 12/26/2023 echocardiogram with LVEF 65%, mild global RV systolic dysfunction, severe biatrial dilatation, moderate mitral annular calcification, aortic sclerosis with no stenosis, severe 4+ tricuspid valve insufficiency, severe pulmonary hypertension with PASP [address] Quick at [facility] for possible future special TTVR procedure. #4. Chronic COPD/asthma with chronic hypoxic respiratory failure: Complicates presentation as noted #1, #2, #3, #4, will maintain on home oxygen supplementation, maintain on ATC budesonide therapy, PRN albuterol, HOB, IS parameters. #5. Chronic anemia/iron deficiency anemia: Admission hemoglobin 11.7, MCV 90.3, baseline hemoglobin has vacillated but primarily 9-10 range, continue iron supplementation, continue CBC trending. #6. Chronic Kidney Disease Stage III, unclear subtype per GFR trending: Admission BUN/Cr 27/1.73, GFR 29, baseline renal function 1.4-1.7, repeat BMP in AM. #7. Hypertension: Patient is encephalopathic but if clinically improves and able we will attempt to continue metoprolol, Entresto, Cardizem and Lasix with pulse dose IV however BP has been precarious thus we will continue to follow and adjust as needed, may require transition to IV agents only if unable to appropriately take oral. PRN hydralazine. #8. Hyperlipidemia: Patient is encephalopathic but if clinically improves and able to take oral will maintain on statin therapy. FLP in AM. #9. Diabetes mellitus type II: Hold oral home regimen, continue home insulin regimen with one half dosing as needed given n.p.o. status or hold if hypoglycemic concerns arise, if bedside swallow passed will allow ADA diet but currently encephalopathic with concern for oral intake safety, maintain on accu checks w/ ISS. #10. History of breast cancer unclear type: Unclear specific breast cancer type/location status post partial mastectomy, reportedly in remission, encourage continued follow-up outpatient as previously arranged. #11. Obesity: Weight loss and lifestyle changes encouraged. #12. GERD: Maintained on IV PPI until assure oral intake is safe. #13. Rheumatoid arthritis: Per current list does not appear to be on chronic regimen, encourage continued outpatient follow-up with rheumatology as previously arranged. #14. Hypothyroidism: Currently patient encephalopathic, awaiting assessment for possible oral intake safety and if appropriate will continue oral levothyroxine regimen. May need to temporarily hold. #15. Former tobacco use: Encourage continued tobacco cessation. #16. DVT prophylaxis: Continue home Eliquis regimen as noted however if necessary may need to transition to subcu versus IV regimen in the interim. #17. CODE status: Patient MIGDALIA is her daughter. Family present at bedside, discussed CODE status at length including difference between FULL code, DNR-CCA and DNR-CC status. Following discussions about the differences in these status, confirmed continued plan for full CODE STATUS. Advanced Care Planning Face to Face Time: 16 minutes. Charges/Coding Visit Charges Inpatient E&M: 49079 Init Hosp L3 Procedures Hospitalists Procedures: 23819 Advncd Care Plan 30 Min
[2024-06-30 15:45] LABS: Troponin T High Sens 2 HR 137 ng/L (<=14)
[2024-06-30 17:32] LABS: Reflex Lactate? Y
[2024-06-30 17:47] LABS: Troponin T High Sens 4 HR 123 ng/L (<=14)
[2024-06-30 18:20] LABS: Lactic Acid 1.8 mmol/L (0.0-2.0)
[2024-06-30 18:29] LABS: Magnesium 1.7 mg/dL (1.5-2.2)
[2024-06-30] MEDS: 0.9% Normal Saline (1000mL) 1,000 ML 100 ML IV (20:26)
[2024-06-30] MEDS: 0.9% Saline Lock 10 ML Syringe IV (20:26)
[2024-06-30] MEDS: Budesonide Respules 0.5 MG/2 ML AMPUL.NEB. INHALATION (20:26)
[2024-06-30] MEDS: Menthol/Lanolin/Calamine/Znox 113 GM Tube 1 APPLIC TOPICAL (20:42)
[2024-06-30] MEDS: dilTIAZem CD 240 MG Capsule PO (20:42)
[2024-06-30] MEDS: Pantoprazole Sodium 40 MG in 0.9% Normal Saline (100mL MB+) 100 ML 330 MG IV (20:42)
[2024-06-30] MEDS: Acetaminophen 325 MG Tablet 650 MG PO (20:56)
[2024-06-30] MEDS: Metoprolol Tartrate 100 MG Tablet PO (21:55)
[2024-06-30] MEDS: SACUBITRIL/VALSARTAN 49-51 MG TABLET 1 EACH PO (21:55)
[2024-06-30] MEDS: APIXABAN 2.5 MG TABLET (WCH) PO (21:55)
[2024-06-30] MEDS: Atorvastatin Calcium 80 MG Tablet PO (21:56)
[2024-06-30] MEDS: Insulin Glargine-YFGN 100 UNIT/ML Pen 20 UNIT SC (21:56)
[2024-06-30] MEDS: Vancomycin HCl 2,000 MG in 0.9% Normal Saline (500mL Bag) 500 ML 250 MG IV (22:05)
[2024-06-30 23:14] LABS: Bedside Glucose 224 mg/dL (74-106)
--- NOTE | 2024-06-30 23:20 | PCM.RX.CS ---
Consult Antibiotic Management Pharmacy has been consulted to manage selected antibiotic: Vancomycin Type of Intervention Type of Consult: New start Suspected Infection Suspected Infection: Sepsis and Skin/Soft tissue Labs Labs: Sodium 136 mmol/L (133-145) 06/30/24 12:40 Potassium 4.6 mmol/L (3.3-5.1) 06/30/24 12:40 Chloride 99 mmol/L (98-108) 06/30/24 12:40 Carbon Dioxide 21.6 mmol/L (21.0-32.0) 06/30/24 12:40 Anion Gap 15 (5-15) 06/30/24 12:40 BUN 27 mg/dL (4-19) H 06/30/24 12:40 Creatinine 1.73 mg/dL (0.70-1.20) H 06/30/24 12:40 Est GFR (MDRD) Non-Af 29 (>60) L 06/30/24 12:40 BUN/Creatinine Ratio 15.6 RATIO (10-20) 06/30/24 12:40 Glucose 271 mg/dL (70-99) H 06/30/24 12:40 Microbiology Microbiology: Microbiology 06/30/24 20:33 Wound - Leg, Right Skin and Soft Tissue MRSA/MSSA (PCR - Final 06/30/24 12:52 Mucosa - Nose SARS-CoV-2, Influenza & RSV (PCR) - Final Dosing Weight Weight used for dosin kg Estimated Creatinine Clearance Estimated Creatinine Clearance: 32 Goal Trough Goal Trough: 15-20 mcg/mL Pharmacy Plan for Drug Dosing Pharmacy Plan for Drug Dosing: Pharmacy Service will continue to monitor and adjust dosing as required. Follow-Up Labs Follow-Up Labs: Trough: Vancomycin Date/Time Labs Ordered Labs to be done on [date and time ordered]: 07/02/24 @8477
[2024-07-01] VITALS (18 sets, daily range): BP systolic 91–138; BP diastolic 56–110; PULSE 76–112; RESP 16–30; TEMP 36.6–36.9; O2SAT 91–97; BMI 39.9
[2024-07-01] MEDS: Ampicillin/Sulbactam 3 GM in 0.9% Normal Saline (100mL MB+) 100 ML IV ×3 (00:20→11:43)
[2024-07-01] MEDS: Levothyroxine 100 MCG Tablet 200 MCG PO (05:07)
[2024-07-01] MEDS: Levothyroxine 50 MCG Tablet PO (05:07)
[2024-07-01 05:12] LABS: Absolute Lymphocyte Count 0.85 X10^3/uL (0.83-4.51); Basophil# 0.03 X10^3/uL; Basophil% 0.3 % (0-1); Hematocrit 30.4 % (37-47); Hemoglobin 9.6 g/dL (12.0-15.0); Lymphocyte # 0.85 X10^3/ul (0.83-4.51); Lymphocyte % 7.8 % (19-41); Mean Corp Hgb Conc 31.6 g/dL (32-36); Mean Corpuscular Hgb 29.1 pg (27.0-32.0); Mean Corpuscular Volume 92.1 fL (81-99); Mean Platelet Vol. 10.7 fl (6.2-12.0); Monocyte# 0.97 X10^3/uL; Monocyte% 8.9 % (0-10); NRBC Flagged by Analyzer 0 % (0-5); Neutrophil # 8.95 X10^3/uL (2.7-7.7); Neutrophil % 82.6 % (47-70); POSITIVE MORPHOLOGY YES; Platelet Count 173 K/mm3 (150-450); RBC Distribution Width CV 15.8 % (11.6-14.6); RBC Distribution Width SD 53.5 fl (35.1-43.9); White Blood Count 10.8 K/mm3 (4.4-11.0)
[2024-07-01 05:16] LABS: Differential Indicated SCAN CRITERIA MET
[2024-07-01 05:52] LABS: ALB/GLOB Ratio 1.1 RATIO (0.9-2.4); AST(SGOT) 12 U/L (<=31); Alanine Aminotransfer ALT/SGPT 11 U/L (<=34); Albumin, Serum 2.8 g/dL (3.4-4.8); Alkaline Phosphatase 70 U/L (35-104); Anion Gap 10 (5-15); BUN 34 mg/dL (4-19); BUN/Creat Ratio 17.4 RATIO (10-20); Calcium,Total 8.3 mg/dL (7.6-11.0); Carbon Dioxide 23.3 mmol/L (21.0-32.0); Chloride 104 mmol/L (98-108); Creatinine, Serum 1.92 mg/dL (0.70-1.20); EST Glomerular Filtration Rate 25 (>60); Estimated Creatinine Clearance 28.73 ml/min (50-250); Globulin 2.5 g/dL (2.2-4.2); Glucose 274 mg/dL (70-99); Potassium 4.7 mmol/L (3.3-5.1); Protein, Total 5.4 g/dL (5.9-8.4); Sodium Level 137 mmol/L (133-145); Total Bilirubin 0.49 mg/dL (0.00-1.30)
[2024-07-01 05:54] LABS: Cholesterol 103 mg/dL (<=200); High Density Lipoprotein 51 mg/dL; Low Density Lipoprotein Calc. 34 mg/dL; Triglycerides 88 mg/dL; Very Low Density Lipoprotein 18 mg/dL (5-40); cholesterol:hdl ratio screen 2.01
--- NOTE | 2024-07-01 05:55 | ECHOCS_ITS ---
Reason For Study Reason For Study: CHF Procedure This was a 2D Doppler, Color Flow transthoracic echocardiogram. The study was technically difficult. Due to body habitus. Contrast injection was performed. Exam performed portable in ICU/CCU. Left Ventricle Normal LV size. D shaped septum in diastole. Left ventricular systolic function is lower limits of normal. The left ventricular ejection fraction is 50 %. No regional wall motion abnormalities noted. Right Ventricle Moderately dilated right ventricle. Mild to moderate global right ventricular systolic dysfunction. Atria The left atrium is moderately enlarged. The right atrium is moderately enlarged. Mitral Valve Normal mitral valve. Mild (1+) eccentric mitral valve insufficiency. Tricuspid Valve Normal tricuspid valve. Mild to moderate (1-2+) tricuspid valve insufficiency. Pulmonary artery systolic pressure is 35 mmHg. Pulmonic Valve Normal pulmonic valve. Great Vessels Normal aortic root. The pulmonary artery is normal size. Inferior vena cava collapse with respiration. and partially collapses. Pericardium/Pleural No pericardial effusion. Medication Definity4.0ml given slow IV push to enhance endocardial definition. MMode/2D Measurements & Calculations LVIDd: 4.8 cm IVSd: 1.7 cm Ao root diam: 3.3 cm LVIDs: 3.7 cm LVPWd: 1.1 cm RVDd: 4.2 cm FS: 24.0 % LAV(MOD-bp): 101.0 ml LVAd ap4: 29.2 cm2 SV(MOD-sp4): 44.4 ml LAV(MOD-bp) Indexed: 44.5 ml/m2 LVLd ap4: 7.9 cm SI(MOD-sp4): 19.6 ml/m2 LAV(MOD-sp2): 100.4 ml EDV(MOD-sp4): 88.4 ml LAV(MOD-sp4): 99.7 ml EDV(sp4-el): 91.6 ml LVAs ap4: 18.6 cm2 LVLs ap4: 6.5 cm ESV(MOD-sp4): 44.0 ml ESV(sp4-el): 45.1 ml EF(MOD-sp4): 50.3 % EF(sp4-el): 50.8 % SV(sp4-el): 46.5 ml LA A4 area: 29.2 cm2 LA dimension(2D): 5.4 cm RA A4 area: 29.6 cm2 TAPSE: 1.3 cm Doppler Measurements & Calculations MV E max graeme: 130.2 cm/sec Lat Peak E' Graeme: 9.8 cm/sec Med Peak E' Graeme: 11.9 cm/sec E/E' lat: 13.3 E/E' med: 10.9 Ao V2 max: 123.5 cm/sec LV V1 max: 79.4 cm/sec PA V2 max: 72.6 cm/sec Ao max P.1 mmHg LV V1 max P.5 mmHg PA V2 mean: 56.4 cm/sec Ao V2 mean: 89.8 cm/sec LV V1 mean P.6 mmHg Ao mean P.6 mmHg LV V1 mean: 60.2 cm/sec Ao V2 VTI: 20.0 cm LV V1 VTI: 14.3 cm AV (velocity ratio): 0.72 TR max graeme: 278.6 cm/sec TR max P.1 mmHg ECHO/Echo Complete W/ Contrast Interpretation Summary Normal LV size. Left ventricular systolic function is lower limits of normal. The left ventricular ejection fraction is 50 %. D shaped septum in diastole. Moderately dilated right ventricle. Mild to moderate global right ventricular systolic dysfunction. Pulmonary artery systolic pressure is 35 mmHg. Compared to the previous the RV pressures are lower presumably due to progressi ve RV dysfunction Contrast injection was performed. Ordering Physician: Liz Griffin Referring Physician: Alexy Douglas Chi Performed By: Susan Thompson, JOSE, RVT
[2024-07-01 06:14] LABS: Platelet Estimate ADEQUATE (ADEQ); Red Cell Morphology NORM C+C NORMAL (NORM C&C); Vacuolated Cells 1+
[2024-07-01] MEDS: Budesonide Respules 0.5 MG/2 ML AMPUL.NEB. INHALATION ×2 (06:46→20:20)
--- NOTE | 2024-07-01 07:37 | EX.PCM.CONCC ---
Assessment & Plan Assessment/Plan (1) Acute on chronic diastolic (congestive) heart failure: (2) Atrial fibrillation with RVR: (3) Cellulitis of right lower leg: (4) Sepsis: PLAN: Plan RECOMMENDATIONS: 1. Continue empiric antibiotics. 2. Ongoing diuresis as tolerated by hemodynamics and renal function. 3. Wean supplemental oxygen to maintain saturations at or above 90%. 4. Rate/rhythm control strategy per cardiology. 5. Repeat echocardiogram is pending. 6. Recommend close outpatient pulmonary follow-up after discharge. 7. Encourage incentive spirometer use and mobilize patient as tolerated. 8. The patient is medically stable for transfer out of the intensive care unit. IMPRESSIONS: 1. Sepsis The patient presented with sepsis due to suspected lower extremity cellulitis with acute sepsis related organ dysfunction as evidenced by encephalopathy and lactic acidemia. The patient remains clinically stable with antimicrobial therapy in place. Continue current supportive care. 2. History of COPD/chronic hypoxemic respiratory failure Continue scheduled bronchodilator therapy as ordered. Continue to wean supplemental oxygen to maintain saturations at or above 90%. 3. Heart failure with preserved ejection fraction/valvular heart disease/paroxysmal atrial fibrillation Continue medical therapy per cardiology recommendations. Repeat echocardiogram is pending. 4. History of chronic kidney disease/obesity/hypertension/diabetes mellitus/hypothyroidism Complicates care, management, recovery and prognosis. Continue home medications as indicated. This note was generated with [employer] dictation software. It may contain incorrect words, spelling, and punctuation that were not noted in checking the note before signing. HPI Consult Data Date of Consult: 07/01/24 HPI Narrative Reason for Consultation: Respiratory failure HPI Narrative: The patient is an 84-year-old female, with a history as outlined below, who presented to the emergency department on June 30 with a confusion, generalized weakness and shortness of breath. The patient has a known history of chronic hypoxemic respiratory failure, COPD, heart failure with preserved ejection fraction, hypertension, atrial fibrillation with RVR and valvular heart disease. In addition, the patient has a history of recurrent pleural effusion related to CHF requiring frequent thoracentesis and ultimately pleurodesis in 2023. She is currently being evaluated for a tricuspid valve procedure in [place] at [facility]. The patient is currently followed in the pulmonary medicine office on an outpatient basis. On presentation to the emergency department, the patient was noted to be afebrile but was tachycardic and tachypneic. Laboratory evaluation revealed a normal white blood cell count. Chemistry profile was notable for a creatinine of 1.73 with a lactate of 2.4. Troponin was increased at 155 with a BNP of 13,980. Procalcitonin was only mildly elevated at 0.73. CT head revealed a questionable lacunar infarct in the head of the left caudate nucleus. Chest imaging demonstrated cardiomegaly with atelectasis in the right lung base. Blood and wound cultures were obtained. The patient was placed on antimicrobial therapy and scheduled diuretics. She was admitted to the medical intensive care unit for further management. COUNTS INCLUDE 234 BEDS AT THE [facility] Medical History SOB (shortness of breath) (HFpEF) heart failure with preserved ejection fraction CHF (congestive heart failure) Chronic respiratory failure with hypoxia and hypercapnia Anticoagulated Asthma CHF exacerbation Congestive heart failure (CHF) IDDM (insulin dependent diabetes mellitus) Diabetes Rheumatoid arthritis On home oxygen therapy Low iron Insulin dependent diabetes mellitus Wears glasses Wears dentures Cancer History of steroid therapy History of renal disease High cholesterol Restless legs Injury of back Back pain Dietary restriction Shortness of breath on exertion History of pain when walking History of edema History of echocardiogram History of stress test Cardiology follow-up encounter History of CHF (congestive heart failure) History of atrial fibrillation Hyperlipidemia Overactive bladder Hypothyroidism Diabetes mellitus Hypertension Chronic kidney disease, stage 3b Former smoker Atrial fibrillation Hypertension Chronic anticoagulation Skin cancer, basal cell Actinic keratosis Skin lesion Skin cancer Chronic diastolic (congestive) heart failure Longstanding persistent atrial fibrillation Diastolic dysfunction Secondary pulmonary arterial hypertension Non-rheumatic tricuspid valve insufficiency Stage 2 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 Right hip pain Disc degeneration, lumbar Fatigue UTI (urinary tract infection) Hypoxia Hypersomnia COPD (chronic obstructive pulmonary disease) Obesity Tobacco dependence in remission CKD (chronic kidney disease) stage 3, GFR 30-59 ml/min Breast cancer Essential (primary) hypertension BMI 39.0-39.9,adult Erosion of bladder suspension mesh SHAKIRA (stress urinary incontinence, female) Home Medications ?Medication ?Instructions ?Recorded ?Last Taken ?Type apixaban 2.5 mg tablet (Eliquis) 2.5 mg PO BID blood thinner 08/20/23 06/26/24 History sacubitril 49 mg-valsartan 51 mg 1 tab PO BID heart 10/21/23 04/24/24 History tablet (Entresto) rosuvastatin 40 mg tablet 40 mg PO QHS cholesterol 12/02/23 04/24/24 History insulin degludec 100 unit/mL (3 20 unit subcut BID diabetes 12/26/23 06/28/24 History mL) subcutaneous pen (Tresiba FlexTouch U-100 insulin) cholecalciferol (vitamin D3) 25 25 mcg PO DAILY supplement 01/20/24 04/24/24 History mcg (1,000 unit) capsule (Vitamin D3) glimepiride 1 mg tablet 1 mg PO DAILY hyperglycemia 03/16/24 06/28/24 History vibegron 75 mg tablet (Gemtesa) 75 mg PO DAILY follow up needed 04/01/24 04/24/24 History potassium chloride 20 mEq 20 meq PO DAILY hypokalemia 04/05/24 04/24/24 History tablet,extended release(part/cryst) acetaminophen 500 mg tablet 1,000 mg (2 x 500 mg) PO Q8 PRN 04/07/24 Unknown Rx arthiritis pain #0 tabs furosemide 40 mg tablet 80 mg PO DAILY swelling 04/25/24 04/24/24 History metoprolol tartrate 100 mg tablet 100 mg PO BID heart 04/25/24 06/29/24 History levothyroxine 200 mcg tablet 200 mcg PO DAILY thyroid 05/14/24 Unknown History levothyroxine 50 mcg tablet 50 mcg PO DAILY 05/14/24 Unknown History diltiazem HCl 240 mg 240 mg PO DAILY heart #90 caps 06/05/24 06/29/24 Rx capsule,extended release 24 hr albuterol sulfate 90 mcg/actuation 2 puff inhalation Q4H PRN 06/30/24 Unknown History aerosol inhaler shortness of breath or wheezing spironolactone 25 mg tablet 25 mg PO DAILY 06/30/24 Unknown History Allergy/AdvReac Type Severity Reaction Status Date / Time Sulfa (Sulfonamide Allergy PEELING Verified 06/26/24 14:01 Antibiotics) RASH Family History Mother Colon cancer Cancer skin, bladder Daughter Cancer Thyroid Sister CAD (coronary artery disease) Surgical History History of surgery Hx of colonoscopy Hx of right cataract extraction Hx of left cataract extraction History of excision of lesion Hx of local excision of skin lesion History of cardioversion (03/20/19) History of hysterectomy History of partial mastectomy History of left heart catheterization (05/31/14) Social History household members: none housing: house current occupational status: retired Smoking Status: Former smoker how long ago did patient quit smokin, 2p/day second hand exposure: Yes alcohol intake: current alcohol intake frequency: holidays/special occasions only substance use type: does not use ROS ROS Narrative 10 systems were reviewed with pertinent positives as noted in the HPI above. Physical Exam Const alert and no apparent distress Constitutional Narrative: Obese. Resting comfortably in bed. General Appearance: cooperative HEENT normocephalic and head/scalp atraumatic Eyes PERRL, EOMs intact bilaterally and conjunctivae normal Neck supple General: trachea midline Chest inspection of chest normal Resp normal respiratory effort Auscultation: rales and diminished lung sounds; Negative for rhonchi or wheezes Cardio regular rate Rhythm: abnormal rhythm Heart Sounds: murmur GI normal to inspection, nondistended, normoactive bowel sounds Extremity General Extremity: edema; Negative for clubbing Skin General Skin Exam: erythema, venous stasis and dermatitis Neuro CN's II-XII intact bilaterally, moves all extremities and no focal motor deficits Psych cooperative and affect normal Lab / Micro Data 07/01/24 05:00 07/01/24 05:00 Labs: Laboratory Results - last 24 hr 06/30/24 12:40: WBC 9.9, RBC 4.04 L, Hgb 11.7 L, Hct 36.5 L, MCV 90.3, MCH 29.0, MCHC 32.1, RDW Std Deviation 50.9 H, RDW Coeff of Sudha 15.4 H, Plt Count 216, MPV 10.8, Immature Gran % (Auto) 0.800, Neut % (Auto) 85.8 H, Lymph % (Auto) 4.6 L, [place] % (Auto) 8.2, Eos % (Auto) 0.0, Baso % (Auto) 0.6, Absolute Neuts (auto) 8.5 H, Absolute Lymphs (auto) 0.46 L, Nucleated RBC % 0, Platelet Estimate ADEQUATE, Polychromasia 1+, Anisocytosis 1+, Sodium 136, Potassium 4.6, Chloride 99, Carbon Dioxide 21.6, Anion Gap 15, BUN 27 H, Creatinine 1.73 H, Estim Creat Clear Calc 32.21 L, Est GFR (MDRD) Non-Af 29 L, BUN/Creatinine Ratio 15.6, Glucose 271 H, Lactic Acid 2.4 H*, Calcium 9.2, Total Creatine Kinase 66, Troponin T High Sens 155 H*, [place] [address] H, Procalcitonin 0.73 H 06/30/24 12:58: Urine Color Yellow, Urine Clarity Clear, Urine pH 6.0, Ur Specific [place] 1.020, Urine Protein 500 H, Urine Glucose (UA) 250 H, Urine Ketones Negative, Urine Occult Blood 25 H, Urine Nitrite Negative, Urine Bilirubin Negative, Urine Urobilinogen 1 H, Ur Leukocyte Esterase 25 H, Urine RBC 0 SEEN, Urine WBC 5-10 SEEN, Ur Squamous Epith Cells 0-5 SEEN, Urine Bacteria 0 SEEN, Hyaline Casts 0-5 SEEN, Fine Granular Casts 0-5 SEEN, Coarse Granular Casts 10-25 SEEN, Urine Mucus 0 SEEN 06/30/24 15:00: Troponin T Hi Sens 2 Hr 137 H* 06/30/24 17:03: Magnesium 1.7, Troponin T Hi Sens 4Hr 123 H* 06/30/24 17:45: Lactic Acid 1.8 06/30/24 21:51: POC Glucose 224 H 07/01/24 05:00: WBC 10.8, RBC 3.30 L, Hgb 9.6 L, Hct 30.4 L, MCV 92.1, MCH 29.1, MCHC 31.6 L, RDW Std Deviation 53.5 H, RDW Coeff of Sudha 15.8 H, Plt Count 173, MPV 10.7, Immature Gran % (Auto) 0.400, Neut % (Auto) 82.6 H, Lymph % (Auto) 7.8 L, [place] % (Auto) 8.9, Eos % (Auto) 0.0, Baso % (Auto) 0.3, Absolute Neuts (auto) 9.0 H, Absolute Lymphs (auto) 0.85, Nucleated RBC % 0, Differential Comment , Toxic Vacuolation 1+, Platelet Estimate ADEQUATE, RBC Morphology NORM C+C, Sodium 137, Potassium 4.7, Chloride 104, Carbon Dioxide 23.3, Anion Gap 10, BUN 34 H, Creatinine 1.92 H, Estim Creat Clear Calc 28.73 L, Est GFR (MDRD) Non-Af 25 L, BUN/Creatinine Ratio 17.4, Glucose 274 H, Calcium 8.3, Total Bilirubin 0.49, AST 12, ALT 11, Alkaline Phosphatase 70, Total Protein 5.4 L, Albumin 2.8 L, Globulin 2.5, Albumin/Globulin Ratio 1.1, Triglycerides 88, Cholesterol 103, LDL Cholesterol, Calc 34, VLDL Cholesterol 18, HDL Cholesterol 51, Cholesterol/HDL Ratio 2.01, TSH 2.640 Micro: Microbiology 06/30/24 20:33 Wound - Leg, Right Skin and Soft Tissue MRSA/MSSA (PCR - Final 06/30/24 12:52 Mucosa - Nose SARS-CoV-2, Influenza & RSV (PCR) - Final ABG Data ABG results: ABG 06/30/24 13:22 Specimen Type ART Sample Site L Brach pH 7.50 H Bicarbonate Actual 25.1 Total CO2 26 Base Excess 2 O2 Saturation 98 O2 % 4.0 ABG pCO2 32.0 L ABG pO2 98 O2 Delivery Device Cannula Vent Mode Not entered Imaging Radiology Impression Brain CT 06/30/24 12:40 IMPRESSION: CHRONIC CHANGES. Questionable lacunar infarct in the head of the left caudate nucleus. Reading Location: [facility]--1 Chest X-Ray 06/30/24 13:33 IMPRESSION: Stable pleural-parenchymal changes at the left lung base with increased markings at the right lung base suggestive of atelectasis and/or early infiltrate with superimposed mild degree of CHF. Cardiomegaly. Reading Location: [facility]-1 Tibia/Fibula X-Ray 06/30/24 13:42 IMPRESSION: Diffuse soft tissue swelling. No bony abnormality is seen. Reading Location: [facility]-1 Charges/Coding Visit Charges Inpatient E&M: 30318 Init Hosp L3
[2024-07-01 08:11] LABS: Bedside Glucose 219 mg/dL (74-106)
[2024-07-01] MEDS: Insulin Lispro 100 UNIT/ML INSULN.PEN SC ×4 (08:12→20:50)
[2024-07-01] MEDS: Potassium Chloride Oral Tablet 20 MEQ PO (08:12)
[2024-07-01] MEDS: Menthol/Lanolin/Calamine/Znox 113 GM Tube 1 APPLIC TOPICAL ×3 (08:13→20:44)
[2024-07-01] MEDS: Vibegron 75 MG TABLET PO (08:13)
[2024-07-01] MEDS: dilTIAZem CD 240 MG Capsule PO (08:13)
[2024-07-01] MEDS: APIXABAN 2.5 MG TABLET (WCH) PO ×2 (08:13→20:45)
[2024-07-01] MEDS: Metoprolol Tartrate 100 MG Tablet PO ×2 (08:14→20:45)
[2024-07-01] MEDS: Insulin Glargine-YFGN 100 UNIT/ML Pen 20 UNIT SC ×2 (08:14→20:49)
--- NOTE | 2024-07-01 08:21 | PCM.CONS.C ---
Assessment & Plan Assessment/Plan (1) Atrial fibrillation with RVR: PLAN: Patient has a history of chronic atrial fibrillation which has been persistent. She is currently well-controlled on her rate and is tolerating Eliquis 2.5 mg twice daily which is recommended dose for her metabolic situation. The patient's heart rate was appropriately elevated with her sepsis on presentation. It appears that she has markedly improved her mental status has improved, hemodynamically she is stable, and her heart rate is well-controlled at 75 bpm on telemetry. I recommend she continue her current medical regimen. (2) Cellulitis of right lower leg: PLAN: Patient's cellulitis of the right lower leg is the most likely etiology of her sepsis presentation. This is being treated by the primary service. (3) (HFpEF) heart failure with preserved ejection fraction: QUALIFIERS: Heart failure chronicity: chronic Qualified Code(s): I50.32 - Chronic diastolic (congestive) heart failure PLAN: Patient has a history of heart failure with preserved ejection fraction. But her chest x-ray appears to be stable and she has responded nicely to antibiotic therapy. It does not appear that she is in overt volume overload despite her elevated N-terminal pro BNP please could be falsely elevated related to her general metabolic situation and renal dysfunction. Her previous BNP which is a different test was 385 which was markedly elevated as well for the normal ranges for that test. The patient does have significant fluid overload in her lower extremities but apparently this is a chronic situation by the patient's report. (4) Essential (primary) hypertension: PLAN: Patient's blood pressure is well-controlled on her current medical therapy. (5) Elevated troponin: PLAN: It appears the troponins are elevated and trending downward related to her presentation of sepsis with hypotension and tachyarrhythmia. An echocardiogram is pending but preliminary results revealed what appeared to be normal LV function. (6) Tricuspid valve insufficiency: QUALIFIERS: Cardiac valve disease etiology: nonrheumatic Qualified Code(s): I36.1 - Nonrheumatic tricuspid (valve) insufficiency PLAN: Patient has a history of 4+ TR on previous echocardiograms. She is being evaluated for possible tricuspid valve intervention at [facility]. A right heart catheterization done 06/29/2024 revealed PA pressure of 54/14 with RV pressure 49/-3 and an RA pressure mean of 6. PLAN: Plan 1. Continue the patient's metoprolol 100 mg twice daily for rate control. 2. Reinstitute her other outpatient medical therapy as blood pressure and heart rate will tolerate. 3. Will provide further recommendations once the 2D echocardiogram is available. 4. Patient's evaluation at [facility] will be delayed until we are certain that her infection is completely cleared. HPI Consult Data Date of Consult: 07/01/24 HPI Narrative Reason for Consultation: Atrial fibrillation with rapid ventricular rate and hypotension HPI Narrative: TONJA SÁNCHEZ, is a 84 F who presents with sepsis and mental status changes. Patient presented to the emergency department with mental status changes after being found by her friend. She was confused and had an elevated lactic acid as well as procalcitonin. She had a new erythematous weeping area on her right lower extremity that had turned red over the last 24 hours. Patient was noted to be in atrial fibrillation with a rapid ventricular response and hypotension. The patient was resuscitated with fluids and treated with IV antibiotics. This morning the patient is alert and oriented x 3 blood pressure is stable within normal ranges. Creatinine actually is crept up from 1.73-1.92 EKG shows atrial fibrillation with a controlled ventricular response at 75 bpm. The patient's troponins were minimally elevated at 155 went down to 137 and then 123. This is consistent with her tachycardia hypotension and sepsis. A 2D echocardiogram limited has been ordered to reevaluate her LV function which historically has been normal in the 55 to 65% range. The patient's N-terminal proBNP was elevated at 13,000 980. Patient carries a history of pulmonary hypertension and a history of recurrent thoracentesis that led to pleurodesis back in July 2023. The patient is being evaluated for possible tricuspid valve procedure at [facility]. She has a history of 4+ tricuspid regurgitation with pulmonary artery pressures in the 54 mmHg range. The patient underwent right heart catheterization on 06/29/2024. PA pressures were 54/14 RV pressure was 49/-3 and RA pressure had a mean of 6. The patient also has a history of hypertension, hyperlipidemia, heart failure with preserved ejection fraction, and persistent atrial fibrillation being treated with rate control and oral anticoagulation. She is on appropriate dose of Eliquis at 2.5 mg twice daily given her 84 years of age and creatinine greater than 1.5. The patient carries a history of multiple cardioversions in the past and she is intolerant of amiodarone. She reports to me that she has been relegated to rate control and oral anticoagulation. [facility] Medical History SOB (shortness of breath) (HFpEF) heart failure with preserved ejection fraction CHF (congestive heart failure) Chronic respiratory failure with hypoxia and hypercapnia Anticoagulated Asthma CHF exacerbation Congestive heart failure (CHF) IDDM (insulin dependent diabetes mellitus) Diabetes Rheumatoid arthritis On home oxygen therapy Low iron Insulin dependent diabetes mellitus Wears glasses Wears dentures Cancer History of steroid therapy History of renal disease High cholesterol Restless legs Injury of back Back pain Dietary restriction Shortness of breath on exertion History of pain when walking History of edema History of echocardiogram History of stress test Cardiology follow-up encounter History of CHF (congestive heart failure) History of atrial fibrillation Hyperlipidemia Overactive bladder Hypothyroidism Diabetes mellitus Hypertension Chronic kidney disease, stage 3b Former smoker Atrial fibrillation Hypertension Chronic anticoagulation Skin cancer, basal cell Actinic keratosis Skin lesion Skin cancer Chronic diastolic (congestive) heart failure Longstanding persistent atrial fibrillation Diastolic dysfunction Secondary pulmonary arterial hypertension Non-rheumatic tricuspid valve insufficiency Stage 2 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 Right hip pain Disc degeneration, lumbar Fatigue UTI (urinary tract infection) Hypoxia Hypersomnia COPD (chronic obstructive pulmonary disease) Obesity Tobacco dependence in remission CKD (chronic kidney disease) stage 3, GFR 30-59 ml/min Breast cancer Essential (primary) hypertension BMI 39.0-39.9,adult Erosion of bladder suspension mesh SHAKIRA (stress urinary incontinence, female) Home Medications ?Medication ?Instructions ?Recorded ?Last Taken ?Type apixaban 2.5 mg tablet (Eliquis) 2.5 mg PO BID blood thinner 08/20/23 06/26/24 History sacubitril 49 mg-valsartan 51 mg 1 tab PO BID heart 10/21/23 04/24/24 History tablet (Entresto) rosuvastatin 40 mg tablet 40 mg PO QHS cholesterol 12/02/23 04/24/24 History insulin degludec 100 unit/mL (3 20 unit subcut BID diabetes 12/26/23 06/28/24 History mL) subcutaneous pen (Tresiba FlexTouch U-100 insulin) cholecalciferol (vitamin D3) 25 25 mcg PO DAILY supplement 01/20/24 04/24/24 History mcg (1,000 unit) capsule (Vitamin D3) glimepiride 1 mg tablet 1 mg PO DAILY hyperglycemia 03/16/24 06/28/24 History vibegron 75 mg tablet (Gemtesa) 75 mg PO DAILY follow up needed 04/01/24 04/24/24 History potassium chloride 20 mEq 20 meq PO DAILY hypokalemia 04/05/24 04/24/24 History tablet,extended release(part/cryst) acetaminophen 500 mg tablet 1,000 mg (2 x 500 mg) PO Q8 PRN 04/07/24 Unknown Rx arthiritis pain #0 tabs furosemide 40 mg tablet 80 mg PO DAILY swelling 04/25/24 04/24/24 History metoprolol tartrate 100 mg tablet 100 mg PO BID heart 04/25/24 06/29/24 History levothyroxine 200 mcg tablet 200 mcg PO DAILY thyroid 05/14/24 Unknown History levothyroxine 50 mcg tablet 50 mcg PO DAILY 05/14/24 Unknown History diltiazem HCl 240 mg 240 mg PO DAILY heart #90 caps 06/05/24 06/29/24 Rx capsule,extended release 24 hr albuterol sulfate 90 mcg/actuation 2 puff inhalation Q4H PRN 06/30/24 Unknown History aerosol inhaler shortness of breath or wheezing spironolactone 25 mg tablet 25 mg PO DAILY 06/30/24 Unknown History Allergy/AdvReac Type Severity Reaction Status Date / Time Sulfa (Sulfonamide Allergy PEELING Verified 06/26/24 14:01 Antibiotics) RASH Family History Mother Colon cancer Cancer skin, bladder Daughter Cancer Thyroid Sister CAD (coronary artery disease) Surgical History History of surgery Hx of colonoscopy Hx of right cataract extraction Hx of left cataract extraction History of excision of lesion Hx of local excision of skin lesion History of cardioversion (03/20/19) History of hysterectomy History of partial mastectomy History of left heart catheterization (05/31/14) Social History household members: none housing: house current occupational status: retired Smoking Status: Former smoker how long ago did patient quit smokin, 2p/day second hand exposure: Yes alcohol intake: current alcohol intake frequency: holidays/special occasions only substance use type: does not use ROS Constitutional Constitutional: Reports as per HPI Eyes Eyes: Reports systems reviewed and no addt'l complaints, except as documented ENT HEENT: Reports systems reviewed and no addt'l complaints, except as documented Cardiovascular Cardiovascular: Reports as per HPI Respiratory/Chest Respiratory/Chest: Reports as per HPI Gastrointestinal Gastrointestinal: Reports systems reviewed and no addt'l complaints, except as documented Genitourinary Genitourinary: Reports as per HPI Musculoskeletal Musculoskeletal: Reports as per HPI Integumentary Integumentary: Reports as per HPI Neurologic Neurologic: Reports as per HPI Psychiatric Psychiatric: Reports as per HPI Endocrine Endocrinology: Reports systems reviewed and no addt'l complaints, except as documented Hematologic/Lymphatic Hematologic/Lymphatic: Reports systems reviewed and no addt'l complaints, except as documented Allergic/Immunologic Allergic/Immunologic: Reports systems reviewed and no addt'l complaints, except as documented Physical Exam Const alert and oriented x3 Constitutional Narrative: Patient does not remember what happened in her home environment or in the emergency department. HEENT normocephalic Eyes EOMs intact bilaterally Neck no JVD and no carotid bruits Chest inspection of chest normal Resp normal respiratory effort Auscultation: crackles bilateral base Cardio Rate: regular rate Rhythm: abnormal rhythm irregularly irregular Heart Sounds: S1 normal, S2 normal and murmur systolic II/ blowing right sternal border; Negative for click or gallop Extremity General Extremity: edema right lower extremity severe and left lower extremity (Left lower extremity is wrapped with compression wraps.) mild Skin Wound Narrative: Patient has a weeping wound on her right lower extremity in the lateral aspect and extensive severely erythematous area from her ankle up to almost her knee. Neuro Neuro Narrative: Alert and oriented x 3 Psych mental status grossly normal Risk Stratification Risk Stratification Applicable: Yes Age >/= 65: Yes >/= 3 CAD Risk Factors (HTN, HLD, DM, family hx of CAD, or current smoker): No Aspirin Use in the Past 7 Days: No Severe Angina (>/= episodes in 24 hours): No EKG ST Changes >/= 0.5mm: No Positive Cardiac Marker: Yes TESFAYE Risk Stratification Score: 2 TESFAYE % Risk: 8% Risk Charges/Coding Visit Charges Inpatient E&M: 15095 Init Hosp L3 Objective Data Vital Signs: Vital Signs Temp Pulse Resp BP Pulse Ox O2 Del Method O2 Flow Rate 98.1 F 105 H 30 H 125/73 H 96 Nasal Cannula 4 07/01/24 08:00 07/01/24 08:14 07/01/24 08:00 07/01/24 08:00 07/01/24 08:00 07/01/24 08:00 07/01/24 08:00 Oxygen Flow Rate (L/min) 4 Oxygen Delivery Method Nasal Cannula Weight: 256 lb 13.416 oz Body Mass Index (BMI) 39.0 Intake & Output: Intake and Output for Last 24 Hours 06/29/24 06/30/24 07/01/24 23:59 23:59 23:59 Intake Total 1574 / 1574 1764 / 1764 Output Total 200 / 200 Balance 1374 / 1374 1764 / 1764 Lab / Micro Data Attestation: I reviewed the patient's lab results. 07/01/24 05:00 07/01/24 05:00 Labs: Laboratory Results - last 24 hr 06/30/24 12:40: WBC 9.9, RBC 4.04 L, Hgb 11.7 L, Hct 36.5 L, MCV 90.3, MCH 29.0, MCHC 32.1, RDW Std Deviation 50.9 H, RDW Coeff of Sudha 15.4 H, Plt Count 216, MPV 10.8, Immature Gran % (Auto) 0.800, Neut % (Auto) 85.8 H, Lymph % (Auto) 4.6 L, [place] % (Auto) 8.2, Eos % (Auto) 0.0, Baso % (Auto) 0.6, Absolute Neuts (auto) 8.5 H, Absolute Lymphs (auto) 0.46 L, Nucleated RBC % 0, Platelet Estimate ADEQUATE, Polychromasia 1+, Anisocytosis 1+, Sodium 136, Potassium 4.6, Chloride 99, Carbon Dioxide 21.6, Anion Gap 15, BUN 27 H, Creatinine 1.73 H, Estim Creat Clear Calc 32.21 L, Est GFR (MDRD) Non-Af 29 L, BUN/Creatinine Ratio 15.6, Glucose 271 H, Lactic Acid 2.4 H*, Calcium 9.2, Total Creatine Kinase 66, Troponin T High Sens 155 H*, [place] [address] H, Procalcitonin 0.73 H 06/30/24 12:58: Urine Color Yellow, Urine Clarity Clear, Urine pH 6.0, Ur Specific Beecher 1.020, Urine Protein 500 H, Urine Glucose (UA) 250 H, Urine Ketones Negative, Urine Occult Blood 25 H, Urine Nitrite Negative, Urine Bilirubin Negative, Urine Urobilinogen 1 H, Ur Leukocyte Esterase 25 H, Urine RBC 0 SEEN, Urine WBC 5-10 SEEN, Ur Squamous Epith Cells 0-5 SEEN, Urine Bacteria 0 SEEN, Hyaline Casts 0-5 SEEN, Fine Granular Casts 0-5 SEEN, Coarse Granular Casts 10-25 SEEN, Urine Mucus 0 SEEN 06/30/24 15:00: Troponin T Hi Sens 2 Hr 137 H* 06/30/24 17:03: Magnesium 1.7, Troponin T Hi Sens 4Hr 123 H* 06/30/24 17:45: Lactic Acid 1.8 06/30/24 21:51: POC Glucose 224 H 07/01/24 05:00: WBC 10.8, RBC 3.30 L, Hgb 9.6 L, Hct 30.4 L, MCV 92.1, MCH 29.1, MCHC 31.6 L, RDW Std Deviation 53.5 H, RDW Coeff of Sudha 15.8 H, Plt Count 173, MPV 10.7, Immature Gran % (Auto) 0.400, Neut % (Auto) 82.6 H, Lymph % (Auto) 7.8 L, [place] % (Auto) 8.9, Eos % (Auto) 0.0, Baso % (Auto) 0.3, Absolute Neuts (auto) 9.0 H, Absolute Lymphs (auto) 0.85, Nucleated RBC % 0, Differential Comment , Toxic Vacuolation 1+, Platelet Estimate ADEQUATE, RBC Morphology NORM C+C, Sodium 137, Potassium 4.7, Chloride 104, Carbon Dioxide 23.3, Anion Gap 10, BUN 34 H, Creatinine 1.92 H, Estim Creat Clear Calc 28.73 L, Est GFR (MDRD) Non-Af 25 L, BUN/Creatinine Ratio 17.4, Glucose 274 H, Calcium 8.3, Total Bilirubin 0.49, AST 12, ALT 11, Alkaline Phosphatase 70, Total Protein 5.4 L, Albumin 2.8 L, Globulin 2.5, Albumin/Globulin Ratio 1.1, Triglycerides 88, Cholesterol 103, LDL Cholesterol, Calc 34, VLDL Cholesterol 18, HDL Cholesterol 51, Cholesterol/HDL Ratio 2.01, TSH 2.640 07/01/24 07:51: POC Glucose 219 H Micro: Microbiology 06/30/24 20:33 Wound - Leg, Right Skin and Soft Tissue MRSA/MSSA (PCR - Final 06/30/24 12:52 Mucosa - Nose SARS-CoV-2, Influenza & RSV (PCR) - Final ABG Data ABG results: ABG 06/30/24 13:22 Specimen Type ART Sample Site L Brach pH 7.50 H Bicarbonate Actual 25.1 Total CO2 26 Base Excess 2 O2 Saturation 98 O2 % 4.0 ABG pCO2 32.0 L ABG pO2 98 O2 Delivery Device Cannula Vent Mode Not entered Rhythm Strip Rhythm Strip: A-fib Rate: 75 Cardiology Labs/Tests 06/30/24 12:40: WBC 9.9, RBC 4.04 L, Hgb 11.7 L, Hct 36.5 L, MCV 90.3, MCH 29.0, MCHC 32.1, Plt Count 216, MPV 10.8, Immature Gran % (Auto) 0.800, Neut % (Auto) 85.8 H, Lymph % (Auto) 4.6 L, [place] % (Auto) 8.2, Eos % (Auto) 0.0, Baso % (Auto) 0.6, Absolute Neuts (auto) 8.5 H, Nucleated RBC % 0, Sodium 136, Potassium 4.6, Chloride 99, Carbon Dioxide 21.6, Anion Gap 15, BUN 27 H, Creatinine 1.73 H, Est GFR (MDRD) Non-Af 29 L, BUN/Creatinine Ratio 15.6, Glucose 271 H, Lactic Acid 2.4 H*, Calcium 9.2 06/30/24 12:58: Urine Color Yellow, Urine Clarity Clear, Urine pH 6.0, Ur Specific Beecher 1.020, Urine Protein 500 H, Urine Glucose (UA) 250 H, Urine Ketones Negative, Urine Occult Blood 25 H, Urine Nitrite Negative, Urine Bilirubin Negative, Urine Urobilinogen 1 H, Ur Leukocyte Esterase 25 H, Urine RBC 0 SEEN, Urine WBC 5-10 SEEN 06/30/24 13:22: pH 7.50 H, Bicarbonate Actual 25.1, Base Excess 2, O2 Saturation 98, ABG pCO2 32.0 L, ABG pO2 98 06/30/24 17:03: Magnesium 1.7 06/30/24 17:45: Lactic Acid 1.8 07/01/24 05:00: WBC 10.8, RBC 3.30 L, Hgb 9.6 L, Hct 30.4 L, MCV 92.1, MCH 29.1, MCHC 31.6 L, Plt Count 173, MPV 10.7, Immature Gran % (Auto) 0.400, Neut % (Auto) 82.6 H, Lymph % (Auto) 7.8 L, [place] % (Auto) 8.9, Eos % (Auto) 0.0, Baso % (Auto) 0.3, Absolute Neuts (auto) 9.0 H, Nucleated RBC % 0, Sodium 137, Potassium 4.7, Chloride 104, Carbon Dioxide 23.3, Anion Gap 10, BUN 34 H, Creatinine 1.92 H, Est GFR (MDRD) Non-Af 25 L, BUN/Creatinine Ratio 17.4, Glucose 274 H, Calcium 8.3, Total Bilirubin 0.49, Triglycerides 88, Cholesterol 103, VLDL Cholesterol 18, HDL Cholesterol 51, Cholesterol/HDL Ratio 2.01 Rhythm: EKG: ECHO: Stress Test: Cardiac Cath: PCI: CT Surgery: Holter monitor: EPS: PPM: CXR: Chest CT Scan: Radiography Diagnostic Testing: Radiology Impression Brain CT 06/30/24 12:40 IMPRESSION: CHRONIC CHANGES. Questionable lacunar infarct in the head of the left caudate nucleus. Reading Location: [place] [id number] Chest X-Ray 06/30/24 13:33 IMPRESSION: Stable pleural-parenchymal changes at the left lung base with increased markings at the right lung base suggestive of atelectasis and/or early infiltrate with superimposed mild degree of CHF. Cardiomegaly. Reading Location: [place] [address] Tibia/Fibula X-Ray 06/30/24 13:42 IMPRESSION: Diffuse soft tissue swelling. No bony abnormality is seen. Reading Location: [place] [address]
--- NOTE | 2024-07-01 09:42 | VDLE_ITS ---
Reason For Study Reason For Study: Swelling RIGHT LEFT GSV is normal. CFV is compressible, spontaneous, phasic, competent, CFV is compressible, spontaneous, phasic, competent and demonstrates normal augmentation. and demonstrates normal augmentation. FV is compressible, spontaneous, phasic, competent and demonstrates normal augmentation. POP V is compressible, spontaneous, phasic, competent and demonstrates normal augmentation. T/P Trunk is compressible. PTV and Emigdio V not visualized due to bandages. Procedure This is a venous duplex using B-mode, color flow and spectral Doppler. Exam performed portable in ICU/CCU. A preliminary report was called and/or faxed to [employer]. VL/Venous Duplex US, Unilateral Interpretation Summary Deep veins of the right lower extremity are patent and compressible segmentally . There is no evidence of right lower extremity deep vein thrombosis. The right great saphenous vein appears patent a nd compressible segmentally. Limited study due to dressings Ordering Physician: Oksana Coon Referring Physician: Alexy Douglas Chi Performed By: Cheri Siegel RVT
--- NOTE | 2024-07-01 09:43 | RAD_ITS ---
PROCEDURE: ABDOMEN SINGLE VIEW (PORTABLE) 07/01/2024 REASON FOR EXAM: SWELLING Abdominal pain. TECHNIQUE: Single view abdomen. COMPARISON: None FINDINGS: Bowel gas: Mild gaseous distention of small and large bowel loops. Bowel gas pattern appears more suggestive of an abdominal ileus than obstruction. Calcifications: None Bones: There are degenerative changes of the spine. Other: RAD/Abdomen Single View (Portable) IMPRESSION: Findings suggestive of an ileus gas pattern. Reading Location: [facility]
[2024-07-01] MEDS: Spironolactone 25 MG Tablet PO (09:44)
[2024-07-01] MEDS: SACUBITRIL/VALSARTAN 49-51 MG TABLET 1 EACH PO ×2 (09:44→20:45)
[2024-07-01] MEDS: Pantoprazole Sodium 40 MG in 0.9% Normal Saline (100mL MB+) 100 ML 330 MG IV ×2 (09:45→20:48)
[2024-07-01] MEDS: guaiFENesin 10 ML UDC (200MG/10ML) PO (09:50)
[2024-07-01] MEDS: Furosemide 40 MG/4 ML Vial IV ×2 (10:02→17:50)
[2024-07-01 11:28] LABS: Bedside Glucose 298 mg/dL (74-106)
--- NOTE | 2024-07-01 12:20 | CASEMGMT ---
FLETCHER UGARTE Assessment Face to Face with patient for initial transition planning/care coordination assessment. FLETCHER UGARTE introduced self and role at [facility], pt voices understanding. Pt is A&Ox4 and is resting comfortably in bed and is calm. Care providers, pharmacy, and demographics verified. Admitting dx: Sepsis, Cellulitis, AF RVR, HF Exacerbation LACE Strata: 3 PCP: Misael Specialists: [facility], [facility], Frank (Nephro) Preferred Pharmacy: [facility] Insurance: MCR A/B, [employer] Prescription Benefit: Yes LNOK: Jason Garcia (SSON), Marleny Kinney (Daughter) Living Arrangements: Pt lives alone in a 2 story home with a flat entrance. Pt states that her bedroom is on the upper portion of the house and has 11 steps with a handrail to manage. ADLs/IADLs: Pt states that she is independent at baseline. At the time of assessment, PT/OT evaluations are pending. Transportation: Self (During the day only), Friends, son. Denies concerns DME: Home oxygen through [employer]. Verified 4L continuous via [place]. Pt has a POC, stationary concentrator, and pulse oximeter. Pt also reports that she has an inhaler, medical alert system, FWW, Cane, grab bars, raised toilet seat, and shower chair HHC/SNF: [facility] TCU and [facility] HH history Pt?s goal: Return to PLOF Plan: TBD. Anticipate SNF vs Home with HHC. Follow PT/OT evals. At this time, the pt states that she would prefer to go home at the time of DC but states that she would be open to returning to the TCU if warranted. Follow for increased oxygen needs. Pt states that she takes Eliquis @ home and that her co-pay is only 20$. Pt denies further questions or concerns at this time. CM to follow. Stefan Guzman RN, CM
--- NOTE | 2024-07-01 12:35 | EX.PCM.CON.S ---
Assessment & Plan Assessment/Plan (1) Ileus due to infection: PLAN: Plan The patient is an 84-year-old female with CHF exacerbation. She was found to have some dilated loops of small and large bowel on KUB this morning. This was read as probable mild ileus. She denies any nausea or vomiting. She states that she actually had a full solid food breakfast and tolerated this without issues. She states that she has periodic passage of small amount of flatus. No bowel movement since admission. Review of her x-rays show a relatively nonspecific bowel gas pattern consistent with very mild ileus. Ileus most likely results from inactivity. I encouraged her to be able to be up and ambulating if possible or even sitting up to a chair would be beneficial. I am recommending that we advance her diet to clears and see how she tolerates this. Will continue to follow. If she tolerates clears, I would likely advance diet tomorrow. Otherwise I have no surgical plans. Will continue to follow HPI Consult Data Date of Consult: 07/01/24 HPI Narrative Reason for Consultation: Ileus HPI Narrative: TONJA SÁNCHEZ, is a 84 F who presented yesterday to the emergency department with shortness of breath, confusion and weakness. Patient was chronic lung issues namely COPD, CHF and chronic respiratory failure. She also has issues with pleural effusions related to her CHF and does undergo periodic thoracentesis. She presented to the emergency room with these complaints. She was tachycardic and tachypneic. She underwent a workup by the emergency department staff. White count was normal. Creatinine was elevated along with her lactate. She was subsequently admitted to the ICU. She states that she has been having some abdominal discomfort especially with urinating. An abdominal x-ray was performed earlier today and this showed mild distention of the small bowel and colon consistent with mild ileus. Patient denies any nausea or vomiting. She states that she has not passed any stool since admission. She states that she is periodically passing a small amount of flatus. Surgical consult was obtained for management of ileus. [facility] Medical History (Updated 07/01/24 @ 12:[address] Nato Presley MD) Ileus due to infection SOB (shortness of breath) (HFpEF) heart failure with preserved ejection fraction CHF (congestive heart failure) Chronic respiratory failure with hypoxia and hypercapnia Anticoagulated Asthma CHF exacerbation Congestive heart failure (CHF) IDDM (insulin dependent diabetes mellitus) Diabetes Rheumatoid arthritis On home oxygen therapy Low iron Insulin dependent diabetes mellitus Wears glasses Wears dentures Cancer History of steroid therapy History of renal disease High cholesterol Restless legs Injury of back Back pain Dietary restriction Shortness of breath on exertion History of pain when walking History of edema History of echocardiogram History of stress test Cardiology follow-up encounter History of CHF (congestive heart failure) History of atrial fibrillation Hyperlipidemia Overactive bladder Hypothyroidism Diabetes mellitus Hypertension Chronic kidney disease, stage 3b Former smoker Atrial fibrillation Hypertension Chronic anticoagulation Skin cancer, basal cell Actinic keratosis Skin lesion Skin cancer Chronic diastolic (congestive) heart failure Longstanding persistent atrial fibrillation Diastolic dysfunction Secondary pulmonary arterial hypertension Non-rheumatic tricuspid valve insufficiency Stage 2 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 Right hip pain Disc degeneration, lumbar Fatigue UTI (urinary tract infection) Hypoxia Hypersomnia COPD (chronic obstructive pulmonary disease) Obesity Tobacco dependence in remission CKD (chronic kidney disease) stage 3, GFR 30-59 ml/min Breast cancer Essential (primary) hypertension BMI 39.0-39.9,adult Erosion of bladder suspension mesh SHAKIRA (stress urinary incontinence, female) Home Medications ?Medication ?Instructions ?Recorded ?Last Taken ?Type apixaban 2.5 mg tablet (Eliquis) 2.5 mg PO BID blood thinner 08/20/23 06/26/24 History sacubitril 49 mg-valsartan 51 mg 1 tab PO BID heart 10/21/23 04/24/24 History tablet (Entresto) rosuvastatin 40 mg tablet 40 mg PO QHS cholesterol 12/02/23 04/24/24 History insulin degludec 100 unit/mL (3 20 unit subcut BID diabetes 12/26/23 06/28/24 History mL) subcutaneous pen (Tresiba FlexTouch U-100 insulin) cholecalciferol (vitamin D3) 25 25 mcg PO DAILY supplement 01/20/24 04/24/24 History mcg (1,000 unit) capsule (Vitamin D3) glimepiride 1 mg tablet 1 mg PO DAILY hyperglycemia 03/16/24 06/28/24 History vibegron 75 mg tablet (Gemtesa) 75 mg PO DAILY follow up needed 04/01/24 04/24/24 History potassium chloride 20 mEq 20 meq PO DAILY hypokalemia 04/05/24 04/24/24 History tablet,extended release(part/cryst) acetaminophen 500 mg tablet 1,000 mg (2 x 500 mg) PO Q8 PRN 04/07/24 Unknown Rx arthiritis pain #0 tabs furosemide 40 mg tablet 80 mg PO DAILY swelling 04/25/24 04/24/24 History metoprolol tartrate 100 mg tablet 100 mg PO BID heart 04/25/24 06/29/24 History levothyroxine 200 mcg tablet 200 mcg PO DAILY thyroid 05/14/24 Unknown History levothyroxine 50 mcg tablet 50 mcg PO DAILY 05/14/24 Unknown History diltiazem HCl 240 mg 240 mg PO DAILY heart #90 caps 06/05/24 06/29/24 Rx capsule,extended release 24 hr albuterol sulfate 90 mcg/actuation 2 puff inhalation Q4H PRN 06/30/24 Unknown History aerosol inhaler shortness of breath or wheezing spironolactone 25 mg tablet 25 mg PO DAILY 06/30/24 Unknown History Allergy/AdvReac Type Severity Reaction Status Date / Time Sulfa (Sulfonamide Allergy PEELING Verified 06/26/24 14:01 Antibiotics) RASH Family History Mother Colon cancer Cancer skin, bladder Daughter Cancer Thyroid Sister CAD (coronary artery disease) Surgical History History of surgery Hx of colonoscopy Hx of right cataract extraction Hx of left cataract extraction History of excision of lesion Hx of local excision of skin lesion History of cardioversion (03/20/19) History of hysterectomy History of partial mastectomy History of left heart catheterization (05/31/14) Social History household members: none housing: house current occupational status: retired Smoking Status: Former smoker how long ago did patient quit smokin, 2p/day second hand exposure: Yes alcohol intake: current alcohol intake frequency: holidays/special occasions only substance use type: does not use ROS Eyes Eyes: Reports systems reviewed and no addt'l complaints, except as documented ENT HEENT: Reports systems reviewed and no addt'l complaints, except as documented Cardiovascular Cardiovascular: Reports systems reviewed and no addt'l complaints, except as documented Respiratory/Chest Respiratory/Chest: Reports systems reviewed and no addt'l complaints, except as documented Gastrointestinal Gastrointestinal: Reports systems reviewed and no addt'l complaints, except as documented Genitourinary Genitourinary: Reports systems reviewed and no addt'l complaints, except as documented Physical Exam Narrative She is alert and oriented x 3. She is in no acute distress. Pupils are equal round and reactive to light. Extraocular muscles are intact. Abdomen is soft, obese, mild to moderate distention. Minimal if any tenderness to palpation Lab / Micro Data 07/01/24 05:00 07/01/24 05:00 Labs: Laboratory Results - last 24 hr 06/30/24 12:40: WBC 9.9, RBC 4.04 L, Hgb 11.7 L, Hct 36.5 L, MCV 90.3, MCH 29.0, MCHC 32.1, RDW Std Deviation 50.9 H, RDW Coeff of Sudha 15.4 H, Plt Count 216, MPV 10.8, Immature Gran % (Auto) 0.800, Neut % (Auto) 85.8 H, Lymph % (Auto) 4.6 L, Pepin % (Auto) 8.2, Eos % (Auto) 0.0, Baso % (Auto) 0.6, Absolute Neuts (auto) 8.5 H, Absolute Lymphs (auto) 0.46 L, Nucleated RBC % 0, Platelet Estimate ADEQUATE, Polychromasia 1+, Anisocytosis 1+, Sodium 136, Potassium 4.6, Chloride 99, Carbon Dioxide 21.6, Anion Gap 15, BUN 27 H, Creatinine 1.73 H, Estim Creat Clear Calc 32.21 L, Est GFR (MDRD) Non-Af 29 L, BUN/Creatinine Ratio 15.6, Glucose 271 H, Lactic Acid 2.4 H*, Calcium 9.2, Total Creatine Kinase 66, Troponin T High Sens 155 H*, [place] [address] H, Procalcitonin 0.73 H 06/30/24 12:58: Urine Color Yellow, Urine Clarity Clear, Urine pH 6.0, Ur Specific [place] 1.020, Urine Protein 500 H, Urine Glucose (UA) 250 H, Urine Ketones Negative, Urine Occult Blood 25 H, Urine Nitrite Negative, Urine Bilirubin Negative, Urine Urobilinogen 1 H, Ur Leukocyte Esterase 25 H, Urine RBC 0 SEEN, Urine WBC 5-10 SEEN, Ur Squamous Epith Cells 0-5 SEEN, Urine Bacteria 0 SEEN, Hyaline Casts 0-5 SEEN, Fine Granular Casts 0-5 SEEN, Coarse Granular Casts 10-25 SEEN, Urine Mucus 0 SEEN 06/30/24 15:00: Troponin T Hi Sens 2 Hr 137 H* 06/30/24 17:03: Magnesium 1.7, Troponin T Hi Sens 4Hr 123 H* 06/30/24 17:45: Lactic Acid 1.8 06/30/24 21:51: POC Glucose 224 H 07/01/24 05:00: WBC 10.8, RBC 3.30 L, Hgb 9.6 L, Hct 30.4 L, MCV 92.1, MCH 29.1, MCHC 31.6 L, RDW Std Deviation 53.5 H, RDW Coeff of Sudha 15.8 H, Plt Count 173, MPV 10.7, Immature Gran % (Auto) 0.400, Neut % (Auto) 82.6 H, Lymph % (Auto) 7.8 L, Pepin % (Auto) 8.9, Eos % (Auto) 0.0, Baso % (Auto) 0.3, Absolute Neuts (auto) 9.0 H, Absolute Lymphs (auto) 0.85, Nucleated RBC % 0, Differential Comment , Toxic Vacuolation 1+, Platelet Estimate ADEQUATE, RBC Morphology NORM C+C, Sodium 137, Potassium 4.7, Chloride 104, Carbon Dioxide 23.3, Anion Gap 10, BUN 34 H, Creatinine 1.92 H, Estim Creat Clear Calc 28.73 L, Est GFR (MDRD) Non-Af 25 L, BUN/Creatinine Ratio 17.4, Glucose 274 H, Calcium 8.3, Total Bilirubin 0.49, AST 12, ALT 11, Alkaline Phosphatase 70, Total Protein 5.4 L, Albumin 2.8 L, Globulin 2.5, Albumin/Globulin Ratio 1.1, Triglycerides 88, Cholesterol 103, LDL Cholesterol, Calc 34, VLDL Cholesterol 18, HDL Cholesterol 51, Cholesterol/HDL Ratio 2.01, TSH 2.640 07/01/24 07:51: POC Glucose 219 H 07/01/24 11:10: POC Glucose 298 H Micro: Microbiology 06/30/24 20:33 Wound - Leg, Right Gram Stain - Final 06/30/24 20:33 Wound - Leg, Right Skin and Soft Tissue MRSA/MSSA (PCR - Final 06/30/24 12:52 Mucosa - Nose SARS-CoV-2, Influenza & RSV (PCR) - Final ABG Data ABG results: ABG 06/30/24 13:22 Specimen Type ART Sample Site L Brach pH 7.50 H Bicarbonate Actual 25.1 Total CO2 26 Base Excess 2 O2 Saturation 98 O2 % 4.0 ABG pCO2 32.0 L ABG pO2 98 O2 Delivery Device Cannula Vent Mode Not entered Rhythm Strip Rhythm Strip: A-fib Rate: 75 Imaging Radiology Impression Brain CT 06/30/24 12:40 IMPRESSION: CHRONIC CHANGES. Questionable lacunar infarct in the head of the left caudate nucleus. Reading Location: [facility] Chest X-Ray 06/30/24 13:33 IMPRESSION: Stable pleural-parenchymal changes at the left lung base with increased markings at the right lung base suggestive of atelectasis and/or early infiltrate with superimposed mild degree of CHF. Cardiomegaly. Reading Location: [facility] Tibia/Fibula X-Ray 06/30/24 13:42 IMPRESSION: Diffuse soft tissue swelling. No bony abnormality is seen. Reading Location: [facility] Echocardiogram 07/01/24 05:55 Interpretation Summary Normal LV size. Left ventricular systolic function is lower limits of normal. The left ventricular ejection fraction is 50 %. D shaped septum in diastole. Moderately dilated right ventricle. Mild to moderate global right ventricular systolic dysfunction. Pulmonary artery systolic pressure is 35 mmHg. Compared to the previous the RV pressures are lower presumably due to progressive RV dysfunction Contrast injection was performed. Ordering Physician: Liz Griffin Referring Physician: Misael, Alexy Chi Performed By: Susan Thompson, KIANACS, RVT X-Ray 07/01/24 09:43 IMPRESSION: Findings suggestive of an ileus gas pattern. Reading Location: [facility] Charges/Coding Visit Charges Inpatient E&M: 54084 Init Hosp L3
--- NOTE | 2024-07-01 15:16 | PN_ITS ---
Subjective Subjective Patient seen and examined. She was complaining of abdominal distention. She denied any fever, chills, palpitations, dizziness, nausea vomiting or any other symptoms. She states she does not think she has passed gas today. She has not had a bowel movement either. Review of systems otherwise negative. Objective Data Objective Data Vital Signs: Vital Signs Temp Pulse Resp BP Pulse Ox O2 Del Method O2 Flow Rate 98.1 F 103 H 20 H 138/78 H 94 Nasal Cannula 2 07/01/24 08:00 07/01/24 09:36 07/01/24 09:36 07/01/24 09:36 07/01/24 09:36 07/01/24 13:56 07/01/24 13:56 Oxygen Flow Rate (L/min) 2 Oxygen Delivery Method Nasal Cannula Weight: 256 lb 13.416 oz Body Mass Index (BMI) 39.0 Intake & Output: Intake and Output for Last 24 Hours 06/29/24 06/30/24 07/01/24 23:59 23:59 23:59 Intake Total 1574 / 1574 2466 / 2466 Output Total 200 / 200 500 / 500 Balance 1374 / 1374 1965 / 1965 Lab / Micro Data 07/01/24 05:00 07/01/24 05:00 Labs: Laboratory Results - last 24 hr 06/30/24 15:00: Troponin T Hi Sens 2 Hr 137 H* 06/30/24 17:03: Magnesium 1.7, Troponin T Hi Sens 4Hr 123 H* 06/30/24 17:45: Lactic Acid 1.8 06/30/24 21:51: POC Glucose 224 H 07/01/24 05:00: WBC 10.8, RBC 3.30 L, Hgb 9.6 L, Hct 30.4 L, MCV 92.1, MCH 29.1, MCHC 31.6 L, RDW Std Deviation 53.5 H, RDW Coeff of Sudha 15.8 H, Plt Count 173, MPV 10.7, Immature Gran % (Auto) 0.400, Neut % (Auto) 82.6 H, Lymph % (Auto) 7.8 L, [place] % (Auto) 8.9, Eos % (Auto) 0.0, Baso % (Auto) 0.3, Absolute Neuts (auto) 9.0 H, Absolute Lymphs (auto) 0.85, Nucleated RBC % 0, Differential Comment , Toxic Vacuolation 1+, Platelet Estimate ADEQUATE, RBC Morphology NORM C+C, Sodium 137, Potassium 4.7, Chloride 104, Carbon Dioxide 23.3, Anion Gap 10, BUN 34 H, Creatinine 1.92 H, Estim Creat Clear Calc 28.73 L, Est GFR (MDRD) Non-Af 25 L, BUN/Creatinine Ratio 17.4, Glucose 274 H, Calcium 8.3, Total Bilirubin 0.49, AST 12, ALT 11, Alkaline Phosphatase 70, Total Protein 5.4 L, Albumin 2.8 L, Globulin 2.5, Albumin/Globulin Ratio 1.1, Triglycerides 88, Cholesterol 103, LDL Cholesterol, Calc 34, VLDL Cholesterol 18, HDL Cholesterol 51, Cholesterol/HDL Ratio 2.01, TSH 2.640 07/01/24 07:51: POC Glucose 219 H 07/01/24 11:10: POC Glucose 298 H Micro: Microbiology 06/30/24 12:52 Blood Culture (Wb) - Anticubital Left Blood Culture - Preliminary 06/30/24 20:33 Wound - Leg, Right Gram Stain - Final 06/30/24 20:33 Wound - Leg, Right Skin and Soft Tissue MRSA/MSSA (PCR - Final 06/30/24 12:52 Mucosa - Nose SARS-CoV-2, Influenza & RSV (PCR) - Final Radiography Diagnostic Testing: Radiology Impression Echocardiogram 07/01/24 05:55 Interpretation Summary Normal LV size. Left ventricular systolic function is lower limits of normal. The left ventricular ejection fraction is 50 %. D shaped septum in diastole. Moderately dilated right ventricle. Mild to moderate global right ventricular systolic dysfunction. Pulmonary artery systolic pressure is 35 mmHg. Compared to the previous the RV pressures are lower presumably due to progressive RV dysfunction Contrast injection was performed. Ordering Physician: Liz Griffin Referring Physician: Alexy Douglas Chi Performed By: Susan Thompson, JOSE, RVT X-Ray 07/01/24 09:43 IMPRESSION: Findings suggestive of an ileus gas pattern. Reading Location: [place] [id number] Rhythm Strip Rhythm Strip: A-fib Rate: 75 Physical Exam Const alert and oriented x3 Constitutional Narrative: in mild discomfort due to abdominal distension General Appearance: cooperative HEENT normocephalic, head/scalp atraumatic, moist oral mucous membranes and oropharynx normal Eyes PERRL and EOMs intact bilaterally Neck no lymphadenopathy and supple Lymph Lymphatic: no lymphadenopathy noted and no lymphedema noted Resp Resp Narrative: mildly diminished breath sounds bibasally, no wheezes or crackles. On 2L of oxygen by nasal canula Cardio regular rate, regular rhythm, S1 normal heart sound, S2 normal heart sound and no murmurs GI normal to inspection, nondistended, normoactive bowel sounds, soft to palpation and non-tender GI Narrative: mild to moderate abdominal distension, no guarding or rebound tenderness. Extremity normal capillary refill, no clubbing, cyanosis or edema and no calf tenderness General Extremity: no tenderness to palpation of joints or extremities Skin Skin Narrative: erythema over right salazar, extending from just above ankle to just below the knee. Mild differential warmth. Neuro CN's II-XII intact bilaterally, no focal motor deficits and no sensory deficits noted Motor Exam: strength 5/5 throughout and general weakness Psych thought process normal and cooperative Mood & Affect: flat affect Assessment & Plan Assessment/Plan (1) Ileus due to infection: (2) Acute on chronic diastolic (congestive) heart failure: (3) Atrial fibrillation with RVR: PLAN: Plan #Sepsis and acute encephalopathy due to RLE cellulitis * Patient still lethargic today but able to communicate. On IV Unasyn. * Blood cultures growing gram-negative cocci in 1/2 samples. * Will broaden antibiotics to IV zosyn pending speciation #Afib with RVR * Heart rate is better controlled now. Cardiology was consulted. On Eliquis 2.5 mg twice daily. * continue metoprolol #Acute on chronic HFpEF * Being diuresed with IV Lasix. 2D echo shows EF of 1 * Monitor intake and output. Fluid restriction to 1500 cc daily. * On Lasix and Entresto as well as spironolactone and metoprolol. * 2D echo showed EF of 50% with no regional wall motion abnormalities noted moderately dilated right ventricle with mild to moderate global right ventricular systolic dysfunction pulmonary artery systolic pressure of 35 mmHg. #Ileus * Patient noted to have abdominal distention today. KUB done showed evidence of ileus. General surgery consulted and recommended conservative management for now. Patient currently NPO. #Tricuspid regurgitation: * Echoes have shown 4+ tricuspid regurgitation. * Being evaluated for possible tricuspid valve intervention at [facility]. * She did have a right heart cath on 06/29/2024 which showed PA pressure of 54/14 with right ventricular pressure 49/-3 and RA mean pressure of 6. * Follow-up with wire communications engineer on outpatient basis. #Chronic respiratory failure due to asthma and heart failure * On her baseline 2 L of oxygen. Breathing treatments with bronchodilators. Titrate oxygen to maintain saturation above 90%. #CKD II: * Creatinine is 1.92 today which is slightly higher than her baseline of around 1.4-1.7. * The Lasix she is on may have contributed to this. Will monitor closely and if creatinine trends upwards we will cut down on Lasix dose. #Hypertension; on metoprolol and Entresto as well as Cardizem and Lasix. #Hyperlipidemia: on statin #Type 2 diabetes mellitus: Currently NPO. Hold Lantus. Insulin sliding scale. Checks ACHS. #History of breast cancer: stable. #GERD: on PPI #Rheumatoid arthritis #Hypothyroidism: on synthroid #DVT prophylaxis: on eliquis COde status: full code Charges/Coding Visit Charges Inpatient E&M: 29944 Subs Hosp L3
[2024-07-01 17:02] LABS: Bedside Glucose 249 mg/dL (74-106)
[2024-07-01] MEDS: Atorvastatin Calcium 80 MG Tablet PO (20:45)
[2024-07-01] MEDS: Acetaminophen 325 MG Tablet 650 MG PO (20:48)
[2024-07-01] MEDS: 0.9% Normal Saline (100mL Bag) 100 ML 15 ML IV (20:53)
[2024-07-01 21:20] LABS: Bedside Glucose 215 mg/dL (74-106)
[2024-07-01] MEDS: Vancomycin HCl 1,500 MG in 0.9% Normal Saline (500mL Bag) 500 ML 250 MG IV (21:27)
[2024-07-01] MEDS: Piperacil/Tazobactam 3.375 GM in 0.9% Normal Saline (50mL MB+) 50 ML IV (23:38)
[2024-07-02] VITALS (11 sets, daily range): BP systolic 103–136; BP diastolic 56–93; PULSE 73–118; RESP 18–26; TEMP 36.3–37.2; O2SAT 93–96; BMI 41.8
[2024-07-02] MEDS: Levothyroxine 50 MCG Tablet PO (05:03)
[2024-07-02] MEDS: Levothyroxine 100 MCG Tablet 200 MCG PO (05:03)
[2024-07-02] MEDS: Piperacil/Tazobactam 3.375 GM in 0.9% Normal Saline (50mL MB+) 50 ML IV ×3 (05:03→22:50)
[2024-07-02 05:20] LABS: Absolute Lymphocyte Count 0.62 X10^3/uL (0.83-4.51); Absolute Neutrophil Count 10.2 X10^3/uL (2.0-7.7); Basophil# 0.02 X10^3/uL; Basophil% 0.2 % (0-1); Eosinophil# 0.05 X10^3/uL; Eosinophils% 0.4 % (0-5); Hemoglobin 9.1 g/dL (12.0-15.0); Lymphocyte # 0.62 X10^3/ul (0.83-4.51); Lymphocyte % 5.2 % (19-41); Mean Corp Hgb Conc 31.4 g/dL (32-36); Mean Corpuscular Hgb 28.9 pg (27.0-32.0); Mean Corpuscular Volume 92.1 fL (81-99); Mean Platelet Vol. 10.8 fl (6.2-12.0); Monocyte# 0.92 X10^3/uL; Monocyte% 7.7 % (0-10); NRBC Flagged by Analyzer 0 % (0-5); Neutrophil # 10.21 X10^3/uL (2.7-7.7); Neutrophil % 85.7 % (47-70); POSITIVE MORPHOLOGY YES; Platelet Count 164 K/mm3 (150-450); RBC Distribution Width CV 15.9 % (11.6-14.6); Red Blood Count 3.15 M/mm3 (4.2-5.4); White Blood Count 11.9 K/mm3 (4.4-11.0)
[2024-07-02 05:23] LABS: Differential Indicated SCAN CRITERIA MET
[2024-07-02 05:42] LABS: Anion Gap 10 (5-15); BUN 41 mg/dL (4-19); BUN/Creat Ratio 19.8 RATIO (10-20); Calcium,Total 8.3 mg/dL (7.6-11.0); Carbon Dioxide 23.6 mmol/L (21.0-32.0); Chloride 102 mmol/L (98-108); Creatinine, Serum 2.09 mg/dL (0.70-1.20); EST Glomerular Filtration Rate 23 (>60); Estimated Creatinine Clearance 26.97 ml/min (50-250); Glucose 147 mg/dL (70-99); Potassium 4.2 mmol/L (3.3-5.1); Sodium Level 136 mmol/L (133-145)
[2024-07-02] MEDS: Budesonide Respules 0.5 MG/2 ML AMPUL.NEB. INHALATION ×2 (06:43→16:54)
--- NOTE | 2024-07-02 07:36 | PN.CC_ITS ---
Assessment & Plan Assessment/Plan (1) Acute on chronic diastolic (congestive) heart failure: (2) Atrial fibrillation with RVR: (3) Cellulitis of right lower leg: (4) Sepsis: PLAN: Plan RECOMMENDATIONS: 1. Continue empiric antibiotics. 2. Ongoing diuresis as tolerated by hemodynamics and renal function. 3. Wean supplemental oxygen to maintain saturations at or above 90%. 4. Rate/rhythm control strategy per cardiology. 5. Recommend close outpatient pulmonary follow-up after discharge. 6. Encourage incentive spirometer use and mobilize patient as tolerated. 7. Will sign off from a critical care perspective. Please call with any additional questions. IMPRESSIONS: 1. Sepsis The patient presented with sepsis due to suspected lower extremity cellulitis with acute sepsis related organ dysfunction as evidenced by encephalopathy and lactic acidemia. The patient remains clinically stable with antimicrobial therapy in place. Continue current supportive care. 2. History of COPD/chronic hypoxemic respiratory failure Continue scheduled bronchodilator therapy as ordered. Continue to wean supplemental oxygen to maintain saturations at or above 90%. Recommend outpatient pulmonary follow-up within 2 weeks of discharge. 3. Heart failure with preserved ejection fraction/valvular heart disease/paroxysmal atrial fibrillation Continue medical therapy per cardiology recommendations. 4. History of chronic kidney disease/obesity/hypertension/diabetes mellitus/hypothyroidism Complicates care, management, recovery and prognosis. Continue home medications as indicated. This note was generated with [employer] dictation software. It may contain incorrect words, spelling, and punctuation that were not noted in checking the note before signing. Subjective Subjective The patient was seen and examined at the bedside this morning. Events from the last 24 hours have been reviewed. The patient is currently afebrile, hemodynamically stable and maintaining appropriate oxygen saturations on 2 L/min via nasal cannula. White blood cell count this morning was noted to be 12,000 with a hemoglobin of 9.1 g/dL. Creatinine is elevated at 2.09. The patient has no specific complaints this morning. Objective Data Objective Data The patient's most recent lab work, culture data and imaging studies have all been personally reviewed. Blood and wound cultures are pending. Vital Signs: Vital Signs Temp Pulse Resp BP Pulse Ox O2 Del Method O2 Flow Rate 98.9 F 91 20 H 112/56 L 94 Nasal Cannula 2 07/02/24 04:00 07/02/24 07:20 07/02/24 07:20 07/02/24 04:00 07/02/24 07:20 07/02/24 07:20 07/02/24 07:20 Oxygen Flow Rate (L/min) 2 Oxygen Delivery Method Nasal Cannula Weight: 267 lb 3.204 oz Body Mass Index (BMI) 41.8 Intake & Output: Intake and Output for Last 24 Hours 06/30/24 07/01/24 07/02/24 23:59 23:59 23:59 Intake Total 1574 / 1574 3808 / 3808 150 / 150 Output Total 200 / 200 1400 / 1400 300 / 300 Balance 1374 / 1374 2408 / 2408 -150 / -150 Lab / Micro Data Attestation: I reviewed the patient's lab results. 07/02/24 05:10 07/02/24 05:10 Labs: Laboratory Results - last 24 hr 07/01/24 07:51: POC Glucose 219 H 07/01/24 11:10: POC Glucose 298 H 07/01/24 16:40: POC Glucose 249 H 07/01/24 20:47: POC Glucose 215 H 07/02/24 05:10: WBC 11.9 H, RBC 3.15 L, Hgb 9.1 L, Hct 29.0 L, MCV 92.1, MCH 28.9, MCHC 31.4 L, RDW Std Deviation 53.0 H, RDW Coeff of Sudha 15.9 H, Plt Count 164, MPV 10.8, Immature Gran % (Auto) 0.800, Neut % (Auto) 85.7 H, Lymph % (Auto) 5.2 L, [place] % (Auto) 7.7, Eos % (Auto) 0.4, Baso % (Auto) 0.2, Absolute Neuts (auto) 10.2 H, Absolute Lymphs (auto) 0.62 L, Nucleated RBC % 0, Sodium 136, Potassium 4.2, Chloride 102, Carbon Dioxide 23.6, Anion Gap 10, BUN 41 H, C reatinine 2.09 H, Estim Creat Clear Calc 26.97 L, Est GFR (MDRD) Non-Af 23 L, BUN/Creatinine Ratio 19.8, Glucose 147 H, Calcium 8.3 Micro: Microbiology 06/30/24 12:52 Blood Culture (Wb) - Anticubital Left Blood Culture - Preliminary 06/30/24 20:33 Wound - Leg, Right Gram Stain - Final 06/30/24 20:33 Wound - Leg, Right Skin and Soft Tissue MRSA/MSSA (PCR - Final 06/30/24 12:52 Mucosa - Nose SARS-CoV-2, Influenza & RSV (PCR) - Final Radiography Diagnostic Testing: Radiology Impression Echocardiogram 07/01/24 05:55 Interpretation Summary Normal LV size. Left ventricular systolic function is lower limits of normal. The left ventricular ejection fraction is 50 %. D shaped septum in diastole. Moderately dilated right ventricle. Mild to moderate global right ventricular systolic dysfunction. Pulmonary artery systolic pressure is 35 mmHg. Compared to the previous the RV pressures are lower presumably due to progressive RV dysfunction Contrast injection was performed. Ordering Physician: Liz Griffin Referring Physician: Alexy Douglas Chi Performed By: Susan Thompson RDCS, RVT Venous Doppler Study 07/01/24 09:42 Interpretation Summary Deep veins of the right lower extremity are patent and compressible segmentally. There is no evidence of right lower extremity deep vein thrombosis. The right great saphenous vein appears patent and compressible segmentally. Limited study due to dressings Ordering Physician: Oksana Coon Referring Physician: Alexy Douglas Chi Performed By: Cheri Siegel, RVT X-Ray 07/01/24 09:43 IMPRESSION: Findings suggestive of an ileus gas pattern. Reading Location: [facility] Rhythm Strip Rhythm Strip: A-fib Rate: 75 Physical Exam Const alert and no apparent distress Constitutional Narrative: Obese. Resting comfortably in bed. General Appearance: cooperative HEENT normocephalic and head/scalp atraumatic Eyes PERRL, EOMs intact bilaterally and conjunctivae normal Neck supple General: trachea midline Chest inspection of chest normal Resp normal respiratory effort Auscultation: rales and diminished lung sounds; Negative for rhonchi or wheezes Cardio regular rate Rhythm: abnormal rhythm Heart Sounds: murmur GI normal to inspection, nondistended, normoactive bowel sounds Extremity General Extremity: edema; Negative for clubbing Skin General Skin Exam: erythema, venous stasis and dermatitis Neuro CN's II-XII intact bilaterally, moves all extremities and no focal motor deficits Psych cooperative and affect normal Charges/Coding Visit Charges Inpatient E&M: 95378 Subs Hosp L2
--- NOTE | 2024-07-02 07:59 | PN.CARD_ITS ---
Subjective Subjective Patient reports that she is feeling much better this morning. Telemetry shows her persistent atrial fibrillation heart rate in 85 bpm range with occasional PVCs. Blood pressure has been stable. Her renal function has slightly deteriorated BUN was 34 creatinine 1.92 with a GFR 25 yesterday this morning BUN is 41 creatinine 2.09 with GFR of 23. By nursing report her diuretic therapy was adjusted. From a cardiovascular standpoint the patient seems to be pretty much back to baseline. Her echocardiogram done yesterday showed an ejection fraction of 50% for the left ventricle she had some right ventricular dysfunction and a square D sign on her interventricular septum consistent with pulmonary hypertension. Patient carries a known history of pulmonary hypertension with severe tricuspid regurgitation of 4+ which was also noted. Her PA pressures however were lower at 34 than what were measured on her recent right heart catheterization earlier this week where her pulmonary artery systolic pressure was 54. Objective Data Vital Signs: Vital Signs Temp Pulse Resp BP Pulse Ox O2 Del Method O2 Flow Rate 98.9 F 91 20 H 112/56 L 94 Nasal Cannula 2 07/02/24 04:00 07/02/24 07:20 07/02/24 07:20 07/02/24 04:00 07/02/24 07:20 07/02/24 07:20 07/02/24 07:20 Oxygen Flow Rate (L/min) 2 Oxygen Delivery Method Nasal Cannula Weight: 267 lb 3.204 oz Body Mass Index (BMI) 41.8 Intake & Output: Intake and Output for Last 24 Hours 06/30/24 07/01/24 07/02/24 23:59 23:59 23:59 Intake Total 1574 / 1574 3808 / 3808 150 / 150 Output Total 200 / 200 1400 / 1400 300 / 300 Balance 1374 / 1374 2408 / 2408 -150 / -150 Lab / Micro Data Attestation: I reviewed the patient's lab results. 07/02/24 05:10 07/02/24 05:10 Labs: Laboratory Results - last 24 hr 07/01/24 07:51: POC Glucose 219 H 07/01/24 11:10: POC Glucose 298 H 07/01/24 16:40: POC Glucose 249 H 07/01/24 20:47: POC Glucose 215 H 07/02/24 05:10: WBC 11.9 H, RBC 3.15 L, Hgb 9.1 L, Hct 29.0 L, MCV 92.1, MCH 28.9, MCHC 31.4 L, RDW Std Deviation 53.0 H, RDW Coeff of Sudha 15.9 H, Plt Count 164, MPV 10.8, Immature Gran % (Auto) 0.800, Neut % (Auto) 85.7 H, Lymph % (Auto) 5.2 L, [place] % (Auto) 7.7, Eos % (Auto) 0.4, Baso % (Auto) 0.2, Absolute Neuts (auto) 10.2 H, Absolute Lymphs (auto) 0.62 L, Nucleated RBC % 0, Sodium 136, Potassium 4.2, Chloride 102, Carbon Dioxide 23.6, Anion Gap 10, BUN 41 H, C reatinine 2.09 H, Estim Creat Clear Calc 26.97 L, Est GFR (MDRD) Non-Af 23 L, BUN/Creatinine Ratio 19.8, Glucose 147 H, Calcium 8.3 Micro: Microbiology 06/30/24 12:52 Blood Culture (Wb) - Anticubital Left Blood Culture - Preliminary 06/30/24 20:33 Wound - Leg, Right Gram Stain - Final Rhythm Strip Rhythm Strip: A-fib Rate: 85 Ectopy: PVC(s) Cardiology Labs/Tests 07/02/24 05:10: WBC 11.9 H, RBC 3.15 L, Hgb 9.1 L, Hct 29.0 L, MCV 92.1, MCH 28.9, MCHC 31.4 L, Plt Count 164, MPV 10.8, Immature Gran % (Auto) 0.800, Neut % (Auto) 85.7 H, Lymph % (Auto) 5.2 L, [place] % (Auto) 7.7, Eos % (Auto) 0.4, Baso % (Auto) 0.2, Absolute Neuts (auto) 10.2 H, Nucleated RBC % 0, Sodium 136, Potassium 4.2, Chloride 102, Carbon Dioxide 23.6, Anion Gap 10, BUN 41 H, C reatinine 2.09 H, Est GFR (MDRD) Non-Af 23 L, BUN/Creatinine Ratio 19.8, Glucose 147 H, Calcium 8.3 Rhythm: EKG: ECHO: Stress Test: Cardiac Cath: PCI: CT Surgery: Holter monitor: EPS: PPM: CXR: Chest CT Scan: Radiography Diagnostic Testing: Radiology Impression Echocardiogram 07/01/24 05:55 Interpretation Summary Normal LV size. Left ventricular systolic function is lower limits of normal. The left ventricular ejection fraction is 50 %. D shaped septum in diastole. Moderately dilated right ventricle. Mild to moderate global right ventricular systolic dysfunction. Pulmonary artery systolic pressure is 35 mmHg. Compared to the previous the RV pressures are lower presumably due to progressive RV dysfunction Contrast injection was performed. Ordering Physician: Liz Griffin Referring Physician: Alexy Douglas Chi Performed By: Susan Thompson RDCS, RVT Venous Doppler Study 07/01/24 09:42 Interpretation Summary Deep veins of the right lower extremity are patent and compressible segmentally. There is no evidence of right lower extremity deep vein thrombosis. The right great saphenous vein appears patent and compressible segmentally. Limited study due to dressings Ordering Physician: Oksana Coon Referring Physician: Alexy Douglas Chi Performed By: Cheri Siegel, RVT X-Ray 07/01/24 09:43 IMPRESSION: Findings suggestive of an ileus gas pattern. Reading Location: [place] [address] Physical Exam Const alert and oriented x3 HEENT normocephalic Eyes EOMs intact bilaterally Neck no JVD Neck Narrative: Thick neck. Resp normal respiratory effort Resp Narrative: Patient's lungs are clear anteriorly to auscultation there are crackles in the bases. Cardio Rate: regular rate Rhythm: abnormal rhythm regularly irregular Heart Sounds: S1 normal, S2 normal and murmur systolic II/ blowing holo; Negative for click or gallop Extremity Extremity Narrative: There is significant hyperpigmentation of the right lower extremity. Neuro Neuro Narrative: Alert and oriented x 3 Psych mental status grossly normal Assessment & Plan Assessment/Plan (1) Atrial fibrillation with RVR: PLAN: Patient remains in persistent atrial fibrillation with a controlled ventricular response of 85 bpm on average. Blood pressure is well-controlled on her current medical therapy. Patient remains on Eliquis 2.5 mg twice daily given her age of 84 and creatinine above 1.5. Patient should continue her current medical therapy. The patient remains on diltiazem and metoprolol for appropriate rate control. (2) (HFpEF) heart failure with preserved ejection fraction: QUALIFIERS: Heart failure chronicity: chronic Qualified Code(s): I50.32 - Chronic diastolic (congestive) heart failure PLAN: Currently the patient LV function measured at 50% with minimal global dysfunction. She does have right ventricular dysfunction with significant tricuspid regurgitation which exacerbates her lower extremity edema. She should continue her home medications. (3) Essential (primary) hypertension: PLAN: Blood pressure is well-controlled on the current medical regimen. (4) Chronic kidney disease, stage 3b: PLAN: Patient has stage IIIb renal insufficiency. This needs to be monitored closely as we titrate her diuretic therapy. (5) Tricuspid valve insufficiency: QUALIFIERS: Cardiac valve disease etiology: nonrheumatic Q ualified Code(s): I36.1 - Nonrheumatic tricuspid (valve) insufficiency PLAN: Patient has 4+ tricuspid regurgitation. She has been evaluated at [facility] she reports to me that 2 of the procedure list explained to her that the percutaneous tricuspid valve replacement would probably help with her lower extremity edema but would not improve her overall functional status. They also report that it would possibly compromise her AV aimee conduction in his bundle conduction requiring permanent pacemaker implantation. Currently the patient is recovering from a sepsis bout and is not a candidate for any type of valve replacement at this time. She is also questioning whether she should even be considered for this given her 84 years of age and the lack of any quality of life improvement other than her lower extremity edema. The patient will follow-up in the [place] [facility] to discuss this further once she is recovered from her sepsis. (6) Cellulitis of right leg: PLAN: Treatment continues by the direction of the primary service. PLAN: Plan 1. Continue current home rate modulating drugs and Eliquis 2.5 mg twice daily. 2. Patient should follow-up in the [place] [facility] with Dr. Tesfaye and the next 4 to 6 weeks once she is fully recovered and cleared all of her sepsis and cellulitis. 3. She should follow-up as needed in the [place] [facility] as needed. 4. At this time we will sign off if further assistance is needed please call. Charges/Coding Visit Charges Inpatient E&M: 707[address] [facility] [place] Hosp L3
--- NOTE | 2024-07-02 08:09 | PN.SURG_ITS ---
Subjective Subjective Patient evaluated resting comfortably in bed. She denies any nausea, vomiting over night. She tolerated clear liquids yesterday. She noted passing flatus and having a liquidy bowel movement overnight. She tolerated clear liquids yesterday. She denies any abdominal pain or discomfor tthis morning. Objective Data Objective Data Vital Signs: Vital Signs Temp Pulse Resp BP Pulse Ox O2 Del Method O2 Flow Rate 98.9 F 91 20 H 112/56 L 94 Nasal Cannula 2 07/02/24 04:00 07/02/24 07:20 07/02/24 07:20 07/02/24 04:00 07/02/24 07:20 07/02/24 07:20 07/02/24 07:20 Oxygen Flow Rate (L/min) 2 Oxygen Delivery Method Nasal Cannula Weight: 267 lb 3.204 oz Body Mass Index (BMI) 41.8 Intake & Output: Intake and Output for Last 24 Hours 06/30/24 07/01/24 07/02/24 23:59 23:59 23:59 Intake Total 1574 / 1574 3808 / 3808 150 / 150 Output Total 200 / 200 1400 / 1400 300 / 300 Balance 1374 / 1374 2408 / 2408 -150 / -150 Lab / Micro Data 07/02/24 05:10 07/02/24 05:10 Labs: Laboratory Results - last 24 hr 07/01/24 07:51: POC Glucose 219 H 07/01/24 11:10: POC Glucose 298 H 07/01/24 16:40: POC Glucose 249 H 07/01/24 20:47: POC Glucose 215 H 07/02/24 05:10: WBC 11.9 H, RBC 3.15 L, Hgb 9.1 L, Hct 29.0 L, MCV 92.1, MCH 28.9, MCHC 31.4 L, RDW Std Deviation 53.0 H, RDW Coeff of Sudha 15.9 H, Plt Count 164, MPV 10.8, Immature Gran % (Auto) 0.800, Neut % (Auto) 85.7 H, Lymph % (Auto) 5.2 L, [place] % (Auto) 7.7, Eos % (Auto) 0.4, Baso % (Auto) 0.2, Absolute Neuts (auto) 10.2 H, Absolute Lymphs (auto) 0.62 L, Nucleated RBC % 0, Sodium 136, Potassium 4.2, Chloride 102, Carbon Dioxide 23.6, Anion Gap 10, BUN 41 H, C reatinine 2.09 H, Estim Creat Clear Calc 26.97 L, Est GFR (MDRD) Non-Af 23 L, BUN/Creatinine Ratio 19.8, Glucose 147 H, Calcium 8.3 Micro: Microbiology 06/30/24 12:52 Blood Culture (Wb) - Anticubital Left Blood Culture - Preliminary 06/30/24 20:33 Wound - Leg, Right Gram Stain - Final 06/30/24 20:33 Wound - Leg, Right Skin and Soft Tissue MRSA/MSSA (PCR - Final 06/30/24 12:52 Mucosa - Nose SARS-CoV-2, Influenza & RSV (PCR) - Final Radiography Diagnostic Testing: Radiology Impression Echocardiogram 07/01/24 05:55 Interpretation Summary Normal LV size. Left ventricular systolic function is lower limits of normal. The left ventricular ejection fraction is 50 %. D shaped septum in diastole. Moderately dilated right ventricle. Mild to moderate global right ventricular systolic dysfunction. Pulmonary artery systolic pressure is 35 mmHg. Compared to the previous the RV pressures are lower presumably due to progressive RV dysfunction Contrast injection was performed. Ordering Physician: Liz Griffin Referring Physician: Alexy Douglas Chi Performed By: Susan Thompson RDCS, RVT Venous Doppler Study 07/01/24 09:42 Interpretation Summary Deep veins of the right lower extremity are patent and compressible segmentally. There is no evidence of right lower extremity deep vein thrombosis. The right great saphenous vein appears patent and compressible segmentally. Limited study due to dressings Ordering Physician: Oksana Coon Referring Physician: Alexy Douglas Chi Performed By: Cheri Siegel RVT X-Ray 07/01/24 09:43 IMPRESSION: Findings suggestive of an ileus gas pattern. Reading Location: [place] [address] Rhythm Strip Rhythm Strip: A-fib Rate: 85 Physical Exam GI GI Narrative: Abdomen- soft, obese. Positive bowel sounds. Nontender to palpation. Assessment & Plan Assessment/Plan (1) Ileus due to infection: PLAN: Plan I am following this patient in conjunction with Dr. Presley. He will independently evaluate this patient. Labs reviewed. Plan to increase to full liquids today No surgical intervention being recommended at this time Patient improvement noted We will continue to monitor this patient Charges/Coding Visit Charges Inpatient E&M: 61405 Subs Hosp L2
[2024-07-02 08:44] LABS: Bedside Glucose 114 mg/dL (74-106)
[2024-07-02] MEDS: SACUBITRIL/VALSARTAN 49-51 MG TABLET 1 EACH PO ×2 (10:03→21:26)
[2024-07-02] MEDS: APIXABAN 2.5 MG TABLET (WCH) PO ×2 (10:03→21:26)
[2024-07-02] MEDS: Vibegron 75 MG TABLET PO (10:03)
[2024-07-02] MEDS: dilTIAZem CD 240 MG Capsule PO (10:03)
[2024-07-02] MEDS: Insulin Glargine-YFGN 100 UNIT/ML Pen 20 UNIT SC ×2 (10:04→21:46)
[2024-07-02] MEDS: Menthol/Lanolin/Calamine/Znox 113 GM Tube 1 APPLIC TOPICAL ×4 (10:04→21:26)
[2024-07-02] MEDS: Potassium Chloride Oral Tablet 20 MEQ PO (10:04)
[2024-07-02] MEDS: Furosemide 40 MG/4 ML Vial IV (10:05)
[2024-07-02] MEDS: Pantoprazole Sodium 40 MG in 0.9% Normal Saline (100mL MB+) 100 ML 330 MG IV ×2 (10:05→21:45)
[2024-07-02] MEDS: 0.9% Saline Lock 10 ML Syringe IV ×2 (10:09→14:29)
--- NOTE | 2024-07-02 10:25 | PN_ITS ---
Subjective Subjective Patient seen and examined. She had no active complaints today and felt better. Her heart rate had improved was in the low 100s. She had no active complaints and review of systems otherwise negative. She has remained hemodynamically stable. Objective Data Objective Data Vital Signs: Vital Signs Temp Pulse Resp BP Pulse Ox O2 Del Method O2 Flow Rate 98.6 F 104 H 26 H 108/71 96 Nasal Cannula 2 07/02/24 08:00 07/02/24 10:02 07/02/24 08:00 07/02/24 10:02 07/02/24 08:00 07/02/24 08:00 07/02/24 08:00 Oxygen Flow Rate (L/min) 2 Oxygen Delivery Method Nasal Cannula Weight: 267 lb 3.204 oz Body Mass Index (BMI) 41.8 Intake & Output: Intake and Output for Last 24 Hours 06/30/24 07/01/24 07/02/24 23:59 23:59 23:59 Intake Total 1574 / 1574 3808 / 3808 200 / 200 Output Total 200 / 200 1400 / 1400 300 / 300 Balance 1374 / 1374 2408 / 2408 -100 / -100 Lab / Micro Data 07/02/24 05:10 07/02/24 05:10 Labs: Laboratory Results - last 24 hr 07/01/24 11:10: POC Glucose 298 H 07/01/24 16:40: POC Glucose 249 H 07/01/24 20:47: POC Glucose 215 H 07/02/24 05:10: WBC 11.9 H, RBC 3.15 L, Hgb 9.1 L, Hct 29.0 L, MCV 92.1, MCH 28.9, MCHC 31.4 L, RDW Std Deviation 53.0 H, RDW Coeff of Sudha 15.9 H, Plt Count 164, MPV 10.8, Immature Gran % (Auto) 0.800, Neut % (Auto) 85.7 H, Lymph % (Auto) 5.2 L, [place] % (Auto) 7.7, Eos % (Auto) 0.4, Baso % (Auto) 0.2, Absolute Neuts (auto) 10.2 H, Absolute Lymphs (auto) 0.62 L, Nucleated RBC % 0, Sodium 136, Potassium 4.2, Chloride 102, Carbon Dioxide 23.6, Anion Gap 10, BUN 41 H, C reatinine 2.09 H, Estim Creat Clear Calc 26.97 L, Est GFR (MDRD) Non-Af 23 L, BUN/Creatinine Ratio 19.8, Glucose 147 H, Calcium 8.3 07/02/24 08:23: POC Glucose 114 H Micro: Microbiology 06/30/24 20:33 Wound - Leg, Right Gram Stain - Final 06/30/24 20:33 Wound - Leg, Right Wound Culture - Preliminary GPC Poss Enterococcus sp Gram negative supriya 06/30/24 12:52 Blood Culture (Wb) - Anticubital Left Blood Culture - Preliminary 06/30/24 20:33 Wound - Leg, Right Skin and Soft Tissue MRSA/MSSA (PCR - Final 06/30/24 12:52 Mucosa - Nose SARS-CoV-2, Influenza & RSV (PCR) - Final Radiography Diagnostic Testing: Radiology Impression Echocardiogram 07/01/24 05:55 Interpretation Summary Normal LV size. Left ventricular systolic function is lower limits of normal. The left ventricular ejection fraction is 50 %. D shaped septum in diastole. Moderately dilated right ventricle. Mild to moderate global right ventricular systolic dysfunction. Pulmonary artery systolic pressure is 35 mmHg. Compared to the previous the RV pressures are lower presumably due to progressive RV dysfunction Contrast injection was performed. Ordering Physician: Liz Griffin Referring Physician: Alexy Douglas Chi Performed By: Susan Thompson, JOSE, RVT Venous Doppler Study 07/01/24 09:42 Interpretation Summary Deep veins of the right lower extremity are patent and compressible segmentally. There is no evidence of right lower extremity deep vein thrombosis. The right great saphenous vein appears patent and compressible segmentally. Limited study due to dressings Ordering Physician: Oksana Coon Referring Physician: Alexy Douglas Chi Performed By: Cheri Siegel RVT X-Ray 07/01/24 09:43 IMPRESSION: Findings suggestive of an ileus gas pattern. Reading Location: [place] [address] Rhythm Strip Rhythm Strip: A-fib Rate: 85 Ectopy: PVC(s) Physical Exam Const alert and oriented x3 General Appearance: cooperative HEENT normocephalic, head/scalp atraumatic, moist oral mucous membranes and oropharynx normal Eyes PERRL and EOMs intact bilaterally Neck no lymphadenopathy and supple Lymph Lymphatic: no lymphadenopathy noted and no lymphedema noted Resp Resp Narrative: mildly diminished breath sounds bibasally, no wheezes or crackles. On 2L of oxygen by nasal canula Cardio regular rate, regular rhythm, S1 normal heart sound, S2 normal heart sound and no murmurs GI GI Narrative: mild to moderate abdominal distension, no guarding or rebound tenderness. Extremity normal capillary refill, no clubbing, cyanosis or edema and no calf tenderness General Extremity: no tenderness to palpation of joints or extremities Skin Skin Narrative: RLE wrapped in bandage Neuro CN's II-XII intact bilaterally, no focal motor deficits and no sensory deficits noted Motor Exam: strength 5/5 throughout and general weakness Psych thought process normal and cooperative Mood & Affect: flat affect Assessment & Plan Assessment/Plan (1) Ileus due to infection: (2) Acute on chronic diastolic (congestive) heart failure: (3) Atrial fibrillation with RVR: PLAN: Plan #Sepsis and acute encephalopathy due to RLE cellulitis * Patient still lethargic today but able to communicate. * Blood cultures growing gram-positive cocci possibly Enterococcus species and gram-negative rods with speciation pending. * ID consulted. Await recs. Currently on IV vancomycin and Zosyn. #Afib with RVR * Heart rate is better controlled now. * Cardiology on board. On Eliquis 2.5 mg twice daily. * continue metoprolol #Acute on chronic HFpEF * Being diuresed with IV Lasix. * Monitor intake and output. Fluid restriction to 1500 cc daily. * On Lasix and Entresto as well as spironolactone and metoprolol. * 2D echo showed EF of 50% with no regional wall motion abnormalities noted moderately dilated right ventricle with mild to moderate global right ventricular systolic dysfunction pulmonary artery systolic pressure of 35 mmHg. * Will hold Lasix today as creatinine has trended up to 2.09. Creatinine was 1.73 on admission. #Ileus * Patient noted to have abdominal distention today. KUB done showed evidence of ileus. General surgery consulted and recommended conservative management for now. * on clear liquid diet. To be advanced as per general surgery. #Tricuspid regurgitation: * Echoes have shown 4+ tricuspid regurgitation. * Being evaluated for possible tricuspid valve intervention at [facility]. * She did have a right heart cath on 06/29/2024 which showed PA pressure of 54/14 with right ventricular pressure 49/-3 and RA mean pressure of 6. * Follow-up with cash posting clerk on outpatient basis. #Chronic respiratory failure due to asthma and heart failure * On her baseline 2 L of oxygen. * Breathing treatments with bronchodilators. * Titrate oxygen to maintain saturation above 90%. 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 * The Lasix she is on may have contributed to this. * Will monitor closely and if creatinine trends upwards we will cut down on Lasix dose. #Hypertension; on metoprolol and Entresto as well as Cardizem and Lasix. #Hyperlipidemia: on statin #Type 2 diabetes mellitus: placed on full liquid diet per general surgery. Hold Lantus. Insulin sliding scale. Checks ACHS. #History of breast cancer: stable. #GERD: on PPI #Rheumatoid arthritis #Hypothyroidism: on synthroid #DVT prophylaxis: on eliquis Code status: full code Disposition: Transfer to PCU Charges/Coding Visit Charges Inpatient E&M: 95499 Subs Hosp L2
--- NOTE | 2024-07-02 10:25 | PCM.CONS.GEN ---
Assessment & Plan Assessment/Plan (1) Cellulitis of right leg: (2) Sepsis: PLAN: Wound cx pending. 1 of 2 bcx with GNC seen on gram stain. Altered mental status rapidly resolved, no headache or neck pain. Cont empiric vanc/zosyn. Will follow, thank you (3) Encephalopathy acute: (4) Cellulitis of right lower leg: (5) Bacteremia: HPI Consult Data Date of Consult: 07/02/24 HPI Narrative Reason for Consultation: bacteremia HPI Narrative: TONJA SÁNCHEZ, is a 84 F with h/o copd on 4L O2, IDDm, RA, CKD, presented 06/30 to ED with acute onset altered mental status and fall at home. No recent illnesses, no fever. Some recent dry cough. Had some nausea. Denies dyspnea, congestion, abd pain, diarrhea, dysuria. Some increased redness and swelling in BLE. Came to ED, admitted to icu on vanc/zosyn. Feeling better today, but reports some discomfort with fernández. Full ROS performed and neg except as noted above. [facility] Medical History Ileus due to infection SOB (shortness of breath) (HFpEF) heart failure with preserved ejection fraction CHF (congestive heart failure) Chronic respiratory failure with hypoxia and hypercapnia Anticoagulated Asthma CHF exacerbation Congestive heart failure (CHF) IDDM (insulin dependent diabetes mellitus) Diabetes Rheumatoid arthritis On home oxygen therapy Low iron Insulin dependent diabetes mellitus Wears glasses Wears dentures Cancer History of steroid therapy History of renal disease High cholesterol Restless legs Injury of back Back pain Dietary restriction Shortness of breath on exertion History of pain when walking History of edema History of echocardiogram History of stress test Cardiology follow-up encounter History of CHF (congestive heart failure) History of atrial fibrillation Hyperlipidemia Overactive bladder Hypothyroidism Diabetes mellitus Hypertension Chronic kidney disease, stage 3b Former smoker Atrial fibrillation Hypertension Chronic anticoagulation Skin cancer, basal cell Actinic keratosis Skin lesion Skin cancer Chronic diastolic (congestive) heart failure Longstanding persistent atrial fibrillation Diastolic dysfunction Secondary pulmonary arterial hypertension Non-rheumatic tricuspid valve insufficiency Stage 2 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 Right hip pain Disc degeneration, lumbar Fatigue UTI (urinary tract infection) Hypoxia Hypersomnia COPD (chronic obstructive pulmonary disease) Obesity Tobacco dependence in remission CKD (chronic kidney disease) stage 3, GFR 30-59 ml/min Breast cancer Essential (primary) hypertension BMI 39.0-39.9,adult Erosion of bladder suspension mesh SHAKIRA (stress urinary incontinence, female) Home Medications ?Medication ?Instructions ?Recorded ?Last Taken ?Type apixaban 2.5 mg tablet (Eliquis) 2.5 mg PO BID blood thinner 08/20/23 06/26/24 History sacubitril 49 mg-valsartan 51 mg 1 tab PO BID heart 10/21/23 04/24/24 History tablet (Entresto) rosuvastatin 40 mg tablet 40 mg PO QHS cholesterol 12/02/23 04/24/24 History insulin degludec 100 unit/mL (3 20 unit subcut BID diabetes 12/26/23 06/28/24 History mL) subcutaneous pen (Tresiba FlexTouch U-100 insulin) cholecalciferol (vitamin D3) 25 25 mcg PO DAILY supplement 01/20/24 04/24/24 History mcg (1,000 unit) capsule (Vitamin D3) glimepiride 1 mg tablet 1 mg PO DAILY hyperglycemia 03/16/24 06/28/24 History vibegron 75 mg tablet (Gemtesa) 75 mg PO DAILY follow up needed 04/01/24 04/24/24 History potassium chloride 20 mEq 20 meq PO DAILY hypokalemia 04/05/24 04/24/24 History tablet,extended release(part/cryst) acetaminophen 500 mg tablet 1,000 mg (2 x 500 mg) PO Q8 PRN 04/07/24 Unknown Rx arthiritis pain #0 tabs furosemide 40 mg tablet 80 mg PO DAILY swelling 04/25/24 04/24/24 History metoprolol tartrate 100 mg tablet 100 mg PO BID heart 04/25/24 06/29/24 History levothyroxine 200 mcg tablet 200 mcg PO DAILY thyroid 05/14/24 Unknown History levothyroxine 50 mcg tablet 50 mcg PO DAILY 05/14/24 Unknown History diltiazem HCl 240 mg 240 mg PO DAILY heart #90 caps 06/05/24 06/29/24 Rx capsule,extended release 24 hr albuterol sulfate 90 mcg/actuation 2 puff inhalation Q4H PRN 06/30/24 Unknown History aerosol inhaler shortness of breath or wheezing spironolactone 25 mg tablet 25 mg PO DAILY 06/30/24 Unknown History Allergy/AdvReac Type Severity Reaction Status Date / Time Sulfa (Sulfonamide Allergy PEELING Verified 06/26/24 14:01 Antibiotics) RASH Family History Mother Colon cancer Cancer skin, bladder Daughter Cancer Thyroid Sister CAD (coronary artery disease) Surgical History History of surgery Hx of colonoscopy Hx of right cataract extraction Hx of left cataract extraction History of excision of lesion Hx of local excision of skin lesion History of cardioversion (03/20/19) History of hysterectomy History of partial mastectomy History of left heart catheterization (05/31/14) Social History household members: none housing: house current occupational status: retired Smoking Status: Former smoker how long ago did patient quit smokin, 2p/day second hand exposure: Yes alcohol intake: current alcohol intake frequency: holidays/special occasions only substance use type: does not use Physical Exam Const alert, oriented x3 and no apparent distress General Appearance: cooperative HEENT normocephalic and head/scalp atraumatic Eyes PERRL and EOMs intact bilaterally Neck supple and No nodes Resp normal air movement and clear to auscultation bilaterally Cardio regular rate and regular rhythm GI soft to palpation, non-tender and non-distended Extremity General Extremity: edema Skin Skin Narrative: BLE wrapped Neuro CN's II-XII intact bilaterally Lab / Micro Data Attestation: I reviewed the patient's lab results. 07/02/24 05:10 07/02/24 05:10 Labs: Laboratory Results - last 24 hr 07/01/24 11:10: POC Glucose 298 H 07/01/24 16:40: POC Glucose 249 H 07/01/24 20:47: POC Glucose 215 H 07/02/24 05:10: WBC 11.9 H, RBC 3.15 L, Hgb 9.1 L, Hct 29.0 L, MCV 92.1, MCH 28.9, MCHC 31.4 L, RDW Std Deviation 53.0 H, RDW Coeff of Sudha 15.9 H, Plt Count 164, MPV 10.8, Immature Gran % (Auto) 0.800, Neut % (Auto) 85.7 H, Lymph % (Auto) 5.2 L, [place] % (Auto) 7.7, Eos % (Auto) 0.4, Baso % (Auto) 0.2, Absolute Neuts (auto) 10.2 H, Absolute Lymphs (auto) 0.62 L, Nucleated RBC % 0, Sodium 136, Potassium 4.2, Chloride 102, Carbon Dioxide 23.6, Anion Gap 10, BUN 41 H, Creatinine 2.09 H, Estim Creat Clear Calc 26.97 L, Est GFR (MDRD) Non-Af 23 L, BUN/Creatinine Ratio 19.8, Glucose 147 H, Calcium 8.3 07/02/24 08:23: POC Glucose 114 H Micro: Microbiology 06/30/24 20:33 Wound - Leg, Right Gram Stain - Final 06/30/24 20:33 Wound - Leg, Right Wound Culture - Preliminary GPC Poss Enterococcus sp Gram negative supriya 06/30/24 12:52 Blood Culture (Wb) - Anticubital Left Blood Culture - Preliminary Rhythm Strip Rhythm Strip: A-fib Rate: 85 Ectopy: PVC(s) Imaging Radiology Impression Echocardiogram 07/01/24 05:55 Interpretation Summary Normal LV size. Left ventricular systolic function is lower limits of normal. The left ventricular ejection fraction is 50 %. D shaped septum in diastole. Moderately dilated right ventricle. Mild to moderate global right ventricular systolic dysfunction. Pulmonary artery systolic pressure is 35 mmHg. Compared to the previous the RV pressures are lower presumably due to progressive RV dysfunction Contrast injection was performed. Ordering Physician: Liz Griffin Referring Physician: Alexy Douglas Chi Performed By: Susan Thompson RDCS, RVT Venous Doppler Study 07/01/24 09:42 Interpretation Summary Deep veins of the right lower extremity are patent and compressible segmentally. There is no evidence of right lower extremity deep vein thrombosis. The right great saphenous vein appears patent and compressible segmentally. Limited study due to dressings Ordering Physician: Oksana Coon Referring Physician: Alexy Douglas Chi Performed By: Cheri Siegel RVT X-Ray 07/01/24 09:43 IMPRESSION: Findings suggestive of an ileus gas pattern. Reading Location: [place] [address]
[2024-07-02] MEDS: Insulin Lispro 100 UNIT/ML INSULN.PEN SC ×2 (11:39→21:46)
--- NOTE | 2024-07-02 11:43 | CASEMGMT ---
Social Work SW met with pt to discuss discharge plan. Pt lives at home alone and states that she has a flight of stairs that she needs to complete each day. Pt is hopeful that she can return home. At this time pt's functional ability is limited. SW spoke with pt regarding possible need for short term SNF prior to return home. Pt states she will consider this, but is very hopeful she can return home. A list of SNF providers including quality and resource use data and consistent with the patient?s preferred geographic region, medical needs, and insurance network were provided from the [employer] Guide. Pt agreeable to review list and SW will continue to follow for appropriate dc planning. SAIRA Bhakta
[2024-07-02 12:00] LABS: Bedside Glucose 153 mg/dL (74-106)
[2024-07-02] MEDS: Acetaminophen 325 MG Tablet 650 MG PO ×2 (13:39→21:24)
[2024-07-02] MEDS: 0.9% Normal Saline (100mL Bag) 100 ML 15 ML IV (14:30)
[2024-07-02 17:24] LABS: Bedside Glucose 142 mg/dL (74-106)
[2024-07-02] MEDS: Atorvastatin Calcium 80 MG Tablet PO (21:25)
[2024-07-02] MEDS: Metoprolol Tartrate 100 MG Tablet PO (21:26)
[2024-07-02 22:23] LABS: Bedside Glucose 202 mg/dL (74-106)
[2024-07-02 23:08] LABS: Vancomycin, Trough Level 18.5 ug/mL (5.0-15.0)
--- NOTE | 2024-07-02 23:49 | PCM.RX.CS ---
Consult Antibiotic Management Pharmacy has been consulted to manage selected antibiotic: Vancomycin Type of Intervention Type of Consult: Follow-up Labs Labs: Sodium 136 mmol/L (133-145) 07/02/24 05:10 Potassium 4.2 mmol/L (3.3-5.1) 07/02/24 05:10 Chloride 102 mmol/L (98-108) 07/02/24 05:10 Carbon Dioxide 23.6 mmol/L (21.0-32.0) 07/02/24 05:10 Anion Gap 10 (5-15) 07/02/24 05:10 BUN 41 mg/dL (4-19) H 07/02/24 05:10 Creatinine 2.09 mg/dL (0.70-1.20) H 07/02/24 05:10 Est GFR (MDRD) Non-Af 23 (>60) L 07/02/24 05:10 BUN/Creatinine Ratio 19.8 RATIO (10-20) 07/02/24 05:10 Glucose 147 mg/dL (70-99) H 07/02/24 05:10 Vancomycin Trough 18.5 ug/mL (5.0-15.0) H 07/02/24 21:35 Microbiology Microbiology: Microbiology 06/30/24 20:33 Wound - Leg, Right Gram Stain - Final 06/30/24 20:33 Wound - Leg, Right Wound Culture - Preliminary GPC Poss Enterococcus sp Gram negative supriya 06/30/24 12:52 Blood Culture (Wb) - Anticubital Left Blood Culture - Preliminary 06/30/24 12:40 Blood Culture (Wb) - Anticubital Left Blood Culture - Preliminary No growth in 48 hours. 06/30/24 20:33 Wound - Leg, Right Skin and Soft Tissue MRSA/MSSA (PCR - Final 06/30/24 12:52 Mucosa - Nose SARS-CoV-2, Influenza & RSV (PCR) - Final Goal Trough Goal Trough: 15-20 mcg/mL Pharmacy Plan for Drug Dosing Pharmacy Plan for Drug Dosing: Pharmacy Service will continue to monitor and adjust dosing as required. TROUGH 18.5 @ 24 HOURS. NO CHANGES, FOLLOW UP TROUGH IN 2 DAYS Follow-Up Labs Follow-Up Labs: Trough: Vancomycin Date/Time Labs Ordered Labs to be done on [date and time ordered]: 07/04 @ 6975
[2024-07-02] MEDS: Vancomycin HCl 1,500 MG in 0.9% Normal Saline (500mL Bag) 500 ML 250 MG IV (23:58)
[2024-07-03] VITALS (8 sets, daily range): BP systolic 116–130; BP diastolic 64–81; PULSE 95–104; RESP 17–22; TEMP 35.8–36.9; O2SAT 92–98; BMI 41.3
[2024-07-03] MEDS: Acetaminophen 325 MG Tablet 650 MG PO ×2 (03:06→09:53)
[2024-07-03 04:47] LABS: Absolute Lymphocyte Count 0.57 X10^3/uL (0.83-4.51); Absolute Neutrophil Count 8.9 X10^3/uL (2.0-7.7); Basophil# 0.02 X10^3/uL; Basophil% 0.2 % (0-1); Eosinophil# 0.07 X10^3/uL; Eosinophils% 0.7 % (0-5); Hematocrit 27.9 % (37-47); Lymphocyte # 0.57 X10^3/ul (0.83-4.51); Lymphocyte % 5.5 % (19-41); Mean Corp Hgb Conc 32.3 g/dL (32-36); Mean Corpuscular Hgb 28.9 pg (27.0-32.0); Mean Corpuscular Volume 89.7 fL (81-99); Mean Platelet Vol. 10.6 fl (6.2-12.0); Monocyte% 6.8 % (0-10); NRBC Flagged by Analyzer 0 % (0-5); Neutrophil # 8.88 X10^3/uL (2.7-7.7); Neutrophil % 86.2 % (47-70); POSITIVE DIFFERENTIAL YES; Platelet Count 170 K/mm3 (150-450); RBC Distribution Width CV 15.7 % (11.6-14.6); RBC Distribution Width SD 51.8 fl (35.1-43.9); Red Blood Count 3.11 M/mm3 (4.2-5.4); White Blood Count 10.3 K/mm3 (4.4-11.0)
[2024-07-03] MEDS: Piperacil/Tazobactam 3.375 GM in 0.9% Normal Saline (50mL MB+) 50 ML IV ×3 (06:45→21:05)
[2024-07-03] MEDS: Levothyroxine 50 MCG Tablet PO (06:54)
[2024-07-03] MEDS: Levothyroxine 100 MCG Tablet 200 MCG PO (06:55)
[2024-07-03 07:01] LABS: Anion Gap 12 (5-15); BUN 37 mg/dL (4-19); Calcium,Total 8.3 mg/dL (7.6-11.0); Carbon Dioxide 21.8 mmol/L (21.0-32.0); Chloride 102 mmol/L (98-108); Creatinine, Serum 2.03 mg/dL (0.70-1.20); EST Glomerular Filtration Rate 24 (>60); Estimated Creatinine Clearance 27.57 ml/min (50-250); Glucose 106 mg/dL (70-99); Sodium Level 136 mmol/L (133-145)
[2024-07-03] MEDS: Budesonide Respules 0.5 MG/2 ML AMPUL.NEB. INHALATION ×2 (07:14→19:25)
--- NOTE | 2024-07-03 07:21 | PCM.PN.SRG ---
Subjective Subjective Patient reports tolerating full liquids yesterday. She had no nausea or vomiting and she is not complaining of any abdominal pain. Objective Data Objective Data Vital Signs: Vital Signs Temp Pulse Resp BP Pulse Ox O2 Del Method O2 Flow Rate 96.5 F L 95 18 130/68 H 96 Nasal Cannula 4 07/03/24 03:00 07/03/24 03:00 07/03/24 03:00 07/03/24 03:00 07/03/24 03:00 07/03/24 03:00 07/03/24 03:00 Oxygen Flow Rate (L/min) 4 Oxygen Delivery Method Nasal Cannula Weight: 263 lb 10.766 oz Body Mass Index (BMI) 41.3 Intake & Output: Intake and Output for Last 24 Hours 07/01/24 07/02/24 07/03/24 23:59 23:59 23:59 Intake Total 3808 / 3808 1260 / 1260 690 / 690 Output Total 1400 / 1400 1450 / 1450 Balance 2408 / 2408 -190 / -190 690 / 690 Lab / Micro Data 07/03/24 04:29 07/03/24 04:29 Labs: Laboratory Results - last 24 hr 07/02/24 08:23: POC Glucose 114 H 07/02/24 11:38: POC Glucose 153 H 07/02/24 17:02: POC Glucose 142 H 07/02/24 21:35: Vancomycin Trough 18.5 H 07/02/24 21:36: POC Glucose 202 H 07/03/24 04:29: WBC 10.3, RBC 3.11 L, Hgb 9.0 L, Hct 27.9 L, MCV 89.7, MCH 28.9, MCHC 32.3, RDW Std Deviation 51.8 H, RDW Coeff of Sudha 15.7 H, Plt Count 170, MPV 10.6, Immature Gran % (Auto) 0.600, Neut % (Auto) 86.2 H, Lymph % (Auto) 5.5 L, [place] % (Auto) 6.8, Eos % (Auto) 0.7, Baso % (Auto) 0.2, Absolute Neuts (auto) 8.9 H, Absolute Lymphs (auto) 0.57 L, Nucleated RBC % 0, Sodium 136, Potassium 4.0, Chloride 102, Carbon Dioxide 21.8, Anion Gap 12, BUN 37 H, Creatinine 2.03 H, Estim Creat Clear Calc 27.57 L, Est GFR (MDRD) Non-Af 24 L, BUN/Creatinine Ratio 18.0, Glucose 106 H, Calcium 8.3 Micro: Microbiology 06/30/24 20:33 Wound - Leg, Right Gram Stain - Final 06/30/24 20:33 Wound - Leg, Right Wound Culture - Preliminary GPC Poss Enterococcus sp Gram negative supriya 06/30/24 12:52 Blood Culture (Wb) - Anticubital Left Blood Culture - Preliminary 06/30/24 12:40 Blood Culture (Wb) - Anticubital Left Blood Culture - Preliminary No growth in 48 hours. 06/30/24 20:33 Wound - Leg, Right Skin and Soft Tissue MRSA/MSSA (PCR - Final 06/30/24 12:52 Mucosa - Nose SARS-CoV-2, Influenza & RSV (PCR) - Final Rhythm Strip Rhythm Strip: A-fib Rate: 85 Ectopy: PVC(s) Physical Exam Const oriented x3 and no apparent distress Resp normal respiratory effort GI normal to inspection, nondistended, normoactive bowel sounds Assessment & Plan Assessment/Plan (1) Ileus due to infection: PLAN: The patient is passing gas and bowel movements and she tolerated full liquids with no nausea or vomiting. She is having no abdominal pain. I will advance her to a regular diet today. Lukas Nix MD Pager: [facility] [address] [place] [address], [address] [place] [address] Office:
[2024-07-03 07:32] LABS: Magnesium 1.9 mg/dL (1.5-2.2); Phosphorus 3.9 mg/dL (2.7-4.5)
[2024-07-03 08:03] LABS: Bedside Glucose 88 mg/dL (74-106)
[2024-07-03] MEDS: SACUBITRIL/VALSARTAN 49-51 MG TABLET 1 EACH PO ×2 (09:43→20:55)
[2024-07-03] MEDS: Spironolactone 25 MG Tablet PO (09:44)
[2024-07-03] MEDS: dilTIAZem CD 240 MG Capsule PO (09:44)
[2024-07-03] MEDS: Vibegron 75 MG TABLET PO (09:44)
[2024-07-03] MEDS: Potassium Chloride Oral Tablet 20 MEQ PO (09:44)
[2024-07-03] MEDS: Furosemide 40 MG/4 ML Vial IV (09:44)
[2024-07-03] MEDS: APIXABAN 2.5 MG TABLET (WCH) PO ×2 (09:44→20:54)
[2024-07-03] MEDS: Metoprolol Tartrate 100 MG Tablet PO ×2 (09:44→20:54)
[2024-07-03] MEDS: Menthol/Lanolin/Calamine/Znox 113 GM Tube 1 APPLIC TOPICAL ×3 (09:45→20:55)
[2024-07-03] MEDS: 0.9% Saline Lock 10 ML Syringe IV (09:54)
[2024-07-03] MEDS: Pantoprazole Sodium 40 MG in 0.9% Normal Saline (100mL MB+) 100 ML 330 MG IV ×2 (10:00→20:45)
--- NOTE | 2024-07-03 10:36 | PN_ITS ---
Subjective Subjective Patient seen and examined. She had no active complaints today. Review of systems is otherwise negative. She is on room air. Objective Data Objective Data Vital Signs: Vital Signs Temp Pulse Resp BP Pulse Ox O2 Del Method O2 Flow Rate 97.8 F 104 H 22 H 120/64 98 Room Air 4 07/03/24 09:35 07/03/24 09:44 07/03/24 09:35 07/03/24 09:44 07/03/24 09:35 07/03/24 09:50 07/03/24 07:14 Oxygen Flow Rate (L/min) 4 Oxygen Delivery Method Room Air Weight: 263 lb 10.766 oz Body Mass Index (BMI) 41.3 Intake & Output: Intake and Output for Last 24 Hours 07/01/24 07/02/24 07/03/24 23:59 23:59 23:59 Intake Total 3808 / 3808 1260 / 1560 1290 / 1290 Output Total 1400 / 1400 1450 / 1850 800 / 800 Balance 2408 / 2408 -190 / -290 490 / 490 Lab / Micro Data 07/03/24 04:29 07/03/24 04:29 Labs: Laboratory Results - last 24 hr 07/02/24 11:38: POC Glucose 153 H 07/02/24 17:02: POC Glucose 142 H 07/02/24 21:35: Vancomycin Trough 18.5 H 07/02/24 21:36: POC Glucose 202 H 07/03/24 04:29: WBC 10.3, RBC 3.11 L, Hgb 9.0 L, Hct 27.9 L, MCV 89.7, MCH 28.9, MCHC 32.3, RDW Std Deviation 51.8 H, RDW Coeff of Sudha 15.7 H, Plt Count 170, MPV 10.6, Immature Gran % (Auto) 0.600, Neut % (Auto) 86.2 H, Lymph % (Auto) 5.5 L, [place] % (Auto) 6.8, Eos % (Auto) 0.7, Baso % (Auto) 0.2, Absolute Neuts (auto) 8.9 H, Absolute Lymphs (auto) 0.57 L, Nucleated RBC % 0, Sodium 136, Potassium 4.0, Chloride 102, Carbon Dioxide 21.8, Anion Gap 12, BUN 37 H, Creatinine 2.03 H, Estim Creat Clear Calc 27.57 L, Est GFR (MDRD) Non-Af 24 L, BUN/Creatinine Ratio 18.0, Glucose 106 H, Calcium 8.3, Phosphorus 3.9, Magnesium 1.9 07/03/24 06:49: POC Glucose 88 Micro: Microbiology 06/30/24 12:52 Blood Culture (Wb) - Anticubital Left Blood Culture - Preliminary 06/30/24 20:33 Wound - Leg, Right Gram Stain - Final 06/30/24 20:33 Wound - Leg, Right Wound Culture - Preliminary GPC Poss Enterococcus sp Stenotrophomonas maltophilia 06/30/24 12:40 Blood Culture (Wb) - Anticubital Left Blood Culture - Preliminary No growth in 48 hours. 06/30/24 20:33 Wound - Leg, Right Skin and Soft Tissue MRSA/MSSA (PCR - Final 06/30/24 12:52 Mucosa - Nose SARS-CoV-2, Influenza & RSV (PCR) - Final Rhythm Strip Rhythm Strip: A-fib Rate: 85 Ectopy: PVC(s) Physical Exam Const alert, oriented x3 and no apparent distress General Appearance: cooperative HEENT normocephalic, head/scalp atraumatic, moist oral mucous membranes and oropharynx normal Eyes PERRL and EOMs intact bilaterally Neck no lymphadenopathy and supple Lymph Lymphatic: no lymphadenopathy noted and no lymphedema noted Resp Resp Narrative: mildly diminished breath sounds bibasally, no wheezes or crackles. On room air. Cardio regular rate, regular rhythm, S1 normal heart sound, S2 normal heart sound and no murmurs GI normal to inspection, nondistended, normoactive bowel sounds, soft to palpation and non-tender Extremity normal capillary refill, no clubbing, cyanosis or edema and no calf tenderness General Extremity: no tenderness to palpation of joints or extremities Skin Skin Narrative: RLE wrapped in bandage Neuro CN's II-XII intact bilaterally, no focal motor deficits and no sensory deficits noted Motor Exam: strength 5/5 throughout and general weakness Psych thought process normal and cooperative Mood & Affect: flat affect Assessment & Plan Assessment/Plan (1) Ileus due to infection: (2) Acute on chronic diastolic (congestive) heart failure: (3) Atrial fibrillation with RVR: PLAN: Plan #Sepsis and acute encephalopathy due to RLE cellulitis * Patient still lethargic today but able to communicate. * Blood cultures growing gram-positive cocci possibly Enterococcus species and Stenotrophomonas maltophilia * ID on board. Per ID to continue on IV vancomycin and Zosyn. Levofloxacin added on per ID recommendations. To add on p.o. levofloxacin 500 mg x 1 and to continue with to 50 mg daily #Afib with RVR * Heart rate is better controlled now. * Cardiology on board. On Eliquis 2.5 mg twice daily. * continue metoprolol #Acute on chronic HFpEF * Being diuresed with IV Lasix. * Monitor intake and output. Fluid restriction to 1500 cc daily. * On Lasix and Entresto as well as spironolactone and metoprolol. * 2D echo showed EF of 50% with no regional wall motion abnormalities noted moderately dilated right ventricle with mild to moderate global right ventricular systolic dysfunction pulmonary artery systolic pressure of 35 mmHg. * Will hold Lasix today as creatinine has trended up to 2.09. Creatinine was 1.73 on admission. #Ileus * resolved. General surgery on board. * on clear liquid diet. * To be advanced as per general surgery. #Tricuspid regurgitation: * Echoes have shown 4+ tricuspid regurgitation. * Being evaluated for possible tricuspid valve intervention at [facility]. * She did have a right heart cath on 06/29/2024 which showed PA pressure of 54/14 with right ventricular pressure 49/-3 and RA mean pressure of 6. * Follow-up with deck mechanic on outpatient basis. #Chronic respiratory failure due to asthma and heart failure * weaned down to room air today. * Breathing treatments with bronchodilators. * Titrate oxygen to maintain saturation above 90%. #SABRINA on CKD II: * Cr has trended down slightly to 2.03 today from 2.09 yesterday. * baseline Cr is ~ 1.4-1.7. * The Lasix she is on may have contributed to this. * lasix cut down to IV lasix 40mg daily. Will switch to PO #Hypertension; on metoprolol and Entresto as well as Cardizem and Lasix. #Hyperlipidemia: on statin #Type 2 diabetes mellitus: Insulin sliding scale. Checks ACHS. Lantus on hold #History of breast cancer: stable. #GERD: on PPI #Rheumatoid arthritis #Hypothyroidism: on synthroid #DVT prophylaxis: on eliquis Code status: full code Charges/Coding Visit Charges Inpatient E&M: 67047 Subs Hosp L2
[2024-07-03] MEDS: Insulin Lispro 100 UNIT/ML INSULN.PEN SC ×3 (11:43→20:52)
[2024-07-03] MEDS: Insulin Glargine-YFGN 100 UNIT/ML Pen 20 UNIT SC ×2 (11:44→20:53)
[2024-07-03] MEDS: oxyCODONE 5 MG Tablet PO ×2 (12:04→21:46)
[2024-07-03 12:06] LABS: Bedside Glucose 254 mg/dL (74-106)
[2024-07-03] MEDS: levoFLOXacin 500 MG Tablet PO (12:23)
[2024-07-03 16:59] LABS: Bedside Glucose 240 mg/dL (74-106)
[2024-07-03] MEDS: Atorvastatin Calcium 80 MG Tablet PO (20:55)
[2024-07-03 21:28] LABS: Bedside Glucose 199 mg/dL (74-106)
[2024-07-03] MEDS: MELATONIN 3 MG TABLET PO (21:46)
[2024-07-03] MEDS: Vancomycin HCl 1,500 MG in 0.9% Normal Saline (500mL Bag) 500 ML 250 MG IV (21:47)
[2024-07-04] VITALS (14 sets, daily range): BP systolic 102–135; BP diastolic 69–76; PULSE 82–104; RESP 18–22; TEMP 36.7–36.9; O2SAT 88–98; BMI 41.4
[2024-07-04] MEDS: Piperacil/Tazobactam 3.375 GM in 0.9% Normal Saline (50mL MB+) 50 ML IV ×3 (05:34→21:58)
[2024-07-04] MEDS: Levothyroxine 100 MCG Tablet 200 MCG PO (05:40)
[2024-07-04] MEDS: Levothyroxine 50 MCG Tablet PO (05:40)
[2024-07-04 05:58] LABS: Absolute Lymphocyte Count 0.57 X10^3/uL (0.83-4.51); Absolute Neutrophil Count 8.4 X10^3/uL (2.0-7.7); Basophil# 0.02 X10^3/uL; Basophil% 0.2 % (0-1); Eosinophil# 0.09 X10^3/uL; Eosinophils% 0.9 % (0-5); Hematocrit 29.5 % (37-47); Hemoglobin 9.4 g/dL (12.0-15.0); Lymphocyte # 0.57 X10^3/ul (0.83-4.51); Lymphocyte % 5.8 % (19-41); Mean Corp Hgb Conc 31.9 g/dL (32-36); Mean Corpuscular Hgb 28.7 pg (27.0-32.0); Mean Corpuscular Volume 89.9 fL (81-99); Monocyte# 0.72 X10^3/uL; Monocyte% 7.3 % (0-10); NRBC Flagged by Analyzer 0 % (0-5); Neutrophil # 8.38 X10^3/uL (2.7-7.7); Neutrophil % 84.9 % (47-70); POSITIVE DIFFERENTIAL YES; POSITIVE MORPHOLOGY YES; Platelet Count 203 K/mm3 (150-450); RBC Distribution Width CV 15.4 % (11.6-14.6); Red Blood Count 3.28 M/mm3 (4.2-5.4); White Blood Count 9.9 K/mm3 (4.4-11.0)
[2024-07-04 06:02] LABS: Differential Indicated SCAN CRITERIA MET
[2024-07-04] MEDS: Ondansetron 4 MG/2 ML Vial IV (06:02)
[2024-07-04] MEDS: Insulin Lispro 100 UNIT/ML INSULN.PEN SC ×4 (06:04→21:21)
[2024-07-04 06:34] LABS: Anion Gap 12 (5-15); BUN 35 mg/dL (4-19); BUN/Creat Ratio 16.6 RATIO (10-20); Calcium,Total 8.2 mg/dL (7.6-11.0); Carbon Dioxide 21.2 mmol/L (21.0-32.0); Chloride 101 mmol/L (98-108); Creatinine, Serum 2.12 mg/dL (0.70-1.20); EST Glomerular Filtration Rate 22 (>60); Estimated Creatinine Clearance 26.46 ml/min (50-250); Glucose 165 mg/dL (70-99); Potassium 3.9 mmol/L (3.3-5.1); Sodium Level 134 mmol/L (133-145)
[2024-07-04 06:51] LABS: Bedside Glucose 155 mg/dL (74-106)
[2024-07-04] MEDS: Budesonide Respules 0.5 MG/2 ML AMPUL.NEB. INHALATION (06:56)
[2024-07-04 07:04] LABS: Differential Comment SCANNED
--- NOTE | 2024-07-04 09:28 | PCM.PN.SRG ---
Subjective Subjective Patient is tolerating diet with no abdominal pain or nausea or vomiting Objective Data Objective Data Vital Signs: Vital Signs Temp Pulse Resp BP Pulse Ox O2 Del Method O2 Flow Rate 98.2 F 104 H 20 H 135/74 H 94 Nasal Cannula 4 07/04/24 06:18 07/04/24 06:56 07/04/24 06:56 07/04/24 06:18 07/04/24 06:56 07/04/24 06:56 07/04/24 06:56 Oxygen Flow Rate (L/min) 4 Oxygen Delivery Method Nasal Cannula Weight: 264 lb 12.403 oz Body Mass Index (BMI) 41.4 Intake & Output: Intake and Output for Last 24 Hours 07/02/24 07/03/24 07/04/24 23:59 23:59 23:59 Intake Total 1260 / 1560 1610 / 1610 580 / 580 Output Total 1450 / 1850 3400 / 3400 600 / 600 Balance -190 / -290 -1790 / -1790 -20 / -20 Lab / Micro Data 07/04/24 05:01 07/04/24 05:01 Labs: Laboratory Results - last 24 hr 07/03/24 11:42: POC Glucose 254 H 07/03/24 16:26: POC Glucose 240 H 07/03/24 20:44: POC Glucose 199 H 07/04/24 05:01: WBC 9.9, RBC 3.28 L, Hgb 9.4 L, Hct 29.5 L, MCV 89.9, MCH 28.7, MCHC 31.9 L, RDW Std Deviation 51.0 H, RDW Coeff of Sudha 15.4 H, Plt Count 203, MPV 11.0, Immature Gran % (Auto) 0.900, Neut % (Auto) 84.9 H, Lymph % (Auto) 5.8 L, [place] % (Auto) 7.3, Eos % (Auto) 0.9, Baso % (Auto) 0.2, Absolute Neuts (auto) 8.4 H, Absolute Lymphs (auto) 0.57 L, Nucleated RBC % 0, Differential Comment SCANNED, Sodium 134, Potassium 3.9, Chloride 101, Carbon Dioxide 21.2, Anion Gap 12, BUN 35 H, Creatinine 2.12 H, Estim Creat Clear Calc 26.46 L, Est GFR (MDRD) Non-Af 22 L, BUN/Creatinine Ratio 16.6, Glucose 165 H, Calcium 8.2 07/04/24 06:00: POC Glucose 155 H Micro: Microbiology 06/30/24 20:33 Wound - Leg, Right Gram Stain - Final 06/30/24 20:33 Wound - Leg, Right Wound Culture - Final Enterococcus faecalis Stenotrophomonas maltophilia 06/30/24 12:52 Blood Culture (Wb) - Anticubital Left Blood Culture - Preliminary 06/30/24 12:40 Blood Culture (Wb) - Anticubital Left Blood Culture - Preliminary No growth in 48 hours. 06/30/24 20:33 Wound - Leg, Right Skin and Soft Tissue MRSA/MSSA (PCR - Final 06/30/24 12:52 Mucosa - Nose SARS-CoV-2, Influenza & RSV (PCR) - Final Rhythm Strip Rhythm Strip: A-fib Rate: 85 Ectopy: PVC(s) Physical Exam Const oriented x3 and no apparent distress Resp normal respiratory effort GI soft to palpation and non-tender Assessment & Plan Assessment/Plan (1) Ileus due to infection: PLAN: Patient's ileus seems to have resolved. She is tolerating regular diet. I will sign off. Please call if there are any issues or concerns. Lukas Nix MD Pager: [facility] [address] [place] [address], [address] [place] [address] Office:
[2024-07-04] MEDS: SACUBITRIL/VALSARTAN 49-51 MG TABLET 1 EACH PO ×2 (09:36→21:20)
[2024-07-04] MEDS: APIXABAN 2.5 MG TABLET (WCH) PO ×2 (09:36→21:23)
[2024-07-04] MEDS: Metoprolol Tartrate 100 MG Tablet PO ×2 (09:36→21:19)
[2024-07-04] MEDS: Vibegron 75 MG TABLET PO (09:36)
[2024-07-04] MEDS: Potassium Chloride Oral Tablet 20 MEQ PO (09:36)
[2024-07-04] MEDS: Menthol/Lanolin/Calamine/Znox 113 GM Tube 1 APPLIC TOPICAL ×3 (09:37→21:20)
[2024-07-04] MEDS: Spironolactone 25 MG Tablet PO (09:37)
[2024-07-04] MEDS: dilTIAZem CD 240 MG Capsule PO (09:37)
[2024-07-04] MEDS: Pantoprazole Sodium 40 MG in 0.9% Normal Saline (100mL MB+) 100 ML 330 MG IV ×2 (11:02→21:21)
[2024-07-04] MEDS: Insulin Glargine-YFGN 100 UNIT/ML Pen 20 UNIT SC ×2 (11:09→21:20)
[2024-07-04] MEDS: levoFLOXacin 250 MG Tablet PO (11:12)
--- NOTE | 2024-07-04 11:47 | PN_ITS ---
Subjective Subjective Patient seen and examined. She complained of some mild abdominal distension. Review of systems is otherwise negative. She is passing gas and having bowel movements. Objective Data Objective Data Vital Signs: Vital Signs Temp Pulse Resp BP Pulse Ox O2 Del Method O2 Flow Rate 98.0 F 82 22 H 115/74 92 Room Air 4 07/04/24 09:29 07/04/24 09:36 07/04/24 09:29 07/04/24 09:36 07/04/24 09:29 07/04/24 09:50 07/04/24 06:56 Oxygen Flow Rate (L/min) 4 Oxygen Delivery Method Room Air Weight: 264 lb 12.403 oz Body Mass Index (BMI) 41.4 Intake & Output: Intake and Output for Last 24 Hours 07/02/24 07/03/24 07/04/24 23:59 23:59 23:59 Intake Total 1260 / 1560 1610 / 1610 630 / 630 Output Total 1450 / 1850 3400 / 3400 600 / 600 Balance -190 / -290 -1790 / -1790 30 / 30 Lab / Micro Data 07/04/24 05:01 07/04/24 05:01 Labs: Laboratory Results - last 24 hr 07/03/24 11:42: POC Glucose 254 H 07/03/24 16:26: POC Glucose 240 H 07/03/24 20:44: POC Glucose 199 H 07/04/24 05:01: WBC 9.9, RBC 3.28 L, Hgb 9.4 L, Hct 29.5 L, MCV 89.9, MCH 28.7, MCHC 31.9 L, RDW Std Deviation 51.0 H, RDW Coeff of Sudha 15.4 H, Plt Count 203, MPV 11.0, Immature Gran % (Auto) 0.900, Neut % (Auto) 84.9 H, Lymph % (Auto) 5.8 L, [place] % (Auto) 7.3, Eos % (Auto) 0.9, Baso % (Auto) 0.2, Absolute Neuts (auto) 8.4 H, Absolute Lymphs (auto) 0.57 L, Nucleated RBC % 0, Differential Comment SCANNED, Sodium 134, Potassium 3.9, Chloride 101, Carbon Dioxide 21.2, Anion Gap 12, BUN 35 H, Creatinine 2.12 H, Estim Creat Clear Calc 26.46 L, Est GFR (MDRD) Non-Af 22 L, BUN/Creatinine Ratio 16.6, Glucose 165 H, Calcium 8.2 07/04/24 06:00: POC Glucose 155 H Micro: Microbiology 06/30/24 12:52 Blood Culture (Wb) - Anticubital Left Blood Culture - Preliminary 06/30/24 20:33 Wound - Leg, Right Gram Stain - Final 06/30/24 20:33 Wound - Leg, Right Wound Culture - Final Enterococcus faecalis Stenotrophomonas maltophilia 06/30/24 12:40 Blood Culture (Wb) - Anticubital Left Blood Culture - Preliminary No growth in 48 hours. 06/30/24 20:33 Wound - Leg, Right Skin and Soft Tissue MRSA/MSSA (PCR - Final 06/30/24 12:52 Mucosa - Nose SARS-CoV-2, Influenza & RSV (PCR) - Final Rhythm Strip Rhythm Strip: A-fib Rate: 85 Ectopy: PVC(s) Physical Exam Const alert, oriented x3 and no apparent distress Constitutional Narrative: in mild discomfort due to abdominal distension General Appearance: cooperative HEENT normocephalic, head/scalp atraumatic, moist oral mucous membranes and oropharynx normal Eyes PERRL and EOMs intact bilaterally Neck no lymphadenopathy and supple Lymph Lymphatic: no lymphadenopathy noted and no lymphedema noted Resp Resp Narrative: mildly diminished breath sounds bibasally, no wheezes or crackles. On room air. Cardio regular rate, regular rhythm, S1 normal heart sound, S2 normal heart sound and no murmurs GI normal to inspection, nondistended, normoactive bowel sounds, soft to palpation and non-tender GI Narrative: Extremity normal capillary refill, no clubbing, cyanosis or edema and no calf tenderness General Extremity: no tenderness to palpation of joints or extremities Skin Skin Narrative: RLE wrapped in bandage Neuro CN's II-XII intact bilaterally, no focal motor deficits and no sensory deficits noted Motor Exam: strength 5/5 throughout and general weakness Psych thought process normal and cooperative Mood & Affect: flat affect Assessment & Plan Assessment/Plan (1) Ileus due to infection: (2) Acute on chronic diastolic (congestive) heart failure: (3) Atrial fibrillation with RVR: PLAN: Plan #Sepsis and acute encephalopathy due to RLE cellulitis * patient much more alert and communicative. Encephalopathy has resolved. * Blood cultures growing gram-positive cocci possibly Enterococcus species and Stenotrophomonas maltophilia * ID on board. Per ID to continue on IV vancomycin and Zosyn. Levofloxacin added on per ID recommendations. To add on p.o. levofloxacin 500 mg x 1 and to continue with to 250 mg daily x 1 week. #Afib * Heart rate is better controlled now. * Cardiology on board. On Eliquis 2.5 mg twice daily. * continue metoprolol and cardizem. #Acute on chronic HFpEF * Being diuresed with IV Lasix. * Monitor intake and output. Fluid restriction to 1500 cc daily. * On Lasix and Entresto as well as spironolactone and metoprolol. * 2D echo showed EF of 50% with no regional wall motion abnormalities noted moderately dilated right ventricle with mild to moderate global right ventricular systolic dysfunction pulmonary artery systolic pressure of 35 mmHg. * Cr is further up to 2.12. * #Ileus * resolved. General surgery on board. * on clear liquid diet. * To be advanced as per general surgery. #Tricuspid regurgitation: * Echoes have shown 4+ tricuspid regurgitation. * Being evaluated for possible tricuspid valve intervention at [facility]. * She did have a right heart cath on 06/29/2024 which showed PA pressure of 54/14 with right ventricular pressure 49/-3 and RA mean pressure of 6. * Follow-up with x ray nurse on outpatient basis. #Chronic respiratory failure due to asthma and heart failure * weaned down to room air today. * Breathing treatments with bronchodilators. * Titrate oxygen to maintain saturation above 90%. #SABRINA on CKD II: * Cr today is 2.12. * baseline Cr is ~ 1.4-1.7. * The Lasix she is on may have contributed to this. * will put on PO lasix. On room air today. #Hypertension; on metoprolol and Entresto as well as Cardizem and Lasix. #Hyperlipidemia: on statin #Type 2 diabetes mellitus: Insulin sliding scale. Accuchecks ACHS. on lantus 20 units bid. #History of breast cancer: stable. #GERD: on PPI #Rheumatoid arthritis #Hypothyroidism: on synthroid #DVT prophylaxis: on eliquis Code status: full code Charges/Coding Visit Charges Inpatient E&M: 94637 Subs Hosp L2
--- NOTE | 2024-07-04 11:54 | CASEMGMT ---
Social Work SW met/pt in room in regard to discharge plan. Pt continues to say she wants to go home w/home health, she does not want to go to a facility. Pt states she has been to [facility] in the past, if she had to go somewhere would want to go there. SW mentioned to pt we want to make sure she can do steps since she has a flight in her home. Pt states she just goes up and down once per day and can usually do that. SW and CM will continue to follow for appropriate discharge plan. NATALYA Stanton
[2024-07-04 12:28] LABS: Bedside Glucose 169 mg/dL (74-106)
[2024-07-04 14:33] LABS: Magnesium 2.1 mg/dL (1.5-2.2)
[2024-07-04 16:21] LABS: Bedside Glucose 153 mg/dL (74-106)
--- NOTE | 2024-07-04 18:50 | RAD_ITS ---
PROCEDURE: ABDOMEN SINGLE VIEW (PORTABLE) 07/04/2024 REASON FOR EXAM: ABD PAIN TECHNIQUE: Single view abdomen. COMPARISON: Radiograph of the abdomen dated 07/01/2024 FINDINGS: Bowel gas: Gas-filled bowel loops, no distention. Calcifications: No suspicious calcifications. Bones: The bones are unremarkable. Other: RAD/Abdomen Single View (Portable) IMPRESSION: Gas-filled bowel loops, no distention, may represent ileus. Similar in appeara nce to the prior study. If there is high clinical suspicion for obstruction, CT of the abdomen and pelvis may be obtained for fur ther characterization. Reading Location: [facility]
[2024-07-04] MEDS: oxyCODONE 5 MG Tablet PO (21:20)
[2024-07-04] MEDS: Atorvastatin Calcium 80 MG Tablet PO (21:20)
[2024-07-04 22:33] LABS: Bedside Glucose 162 mg/dL (74-106)
[2024-07-04 22:57] LABS: Vancomycin, Trough Level 24.8 ug/mL (5.0-15.0)
--- NOTE | 2024-07-04 23:18 | PCM.RX.CS ---
Consult Antibiotic Management Pharmacy has been consulted to manage selected antibiotic: Vancomycin Type of Intervention Type of Consult: Follow-up Labs Labs: Sodium 134 mmol/L (133-145) 07/04/24 05:01 Potassium 3.9 mmol/L (3.3-5.1) 07/04/24 05:01 Chloride 101 mmol/L (98-108) 07/04/24 05:01 Carbon Dioxide 21.2 mmol/L (21.0-32.0) 07/04/24 05:01 Anion Gap 12 (5-15) 07/04/24 05:01 BUN 35 mg/dL (4-19) H 07/04/24 05:01 Creatinine 2.12 mg/dL (0.70-1.20) H 07/04/24 05:01 Est GFR (MDRD) Non-Af 22 (>60) L 07/04/24 05:01 BUN/Creatinine Ratio 16.6 RATIO (10-20) 07/04/24 05:01 Glucose 165 mg/dL (70-99) H 07/04/24 05:01 Vancomycin Trough 24.8 ug/mL (5.0-15.0) H 07/04/24 21:58 Microbiology Microbiology: Microbiology 06/30/24 12:52 Blood Culture (Wb) - Anticubital Left Blood Culture - Preliminary 06/30/24 20:33 Wound - Leg, Right Gram Stain - Final 06/30/24 20:33 Wound - Leg, Right Wound Culture - Final Enterococcus faecalis Stenotrophomonas maltophilia 06/30/24 12:40 Blood Culture (Wb) - Anticubital Left Blood Culture - Preliminary No growth in 48 hours. 06/30/24 20:33 Wound - Leg, Right Skin and Soft Tissue MRSA/MSSA (PCR - Final 06/30/24 12:52 Mucosa - Nose SARS-CoV-2, Influenza & RSV (PCR) - Final Goal Trough Goal Trough: 15-20 mcg/mL Pharmacy Plan for Drug Dosing Pharmacy Plan for Drug Dosing: Pharmacy Service will continue to monitor and adjust dosing as required. TROUGH 24.8 @ 24 HOURS. HOLD DOSE AND DRAW RANDOM LEVEL IN 12 HOURS Follow-Up Labs Follow-Up Labs: Trough: Vancomycin Date/Time Labs Ordered Labs to be done on [date and time ordered]: 07/05 @ 0930 RANDOM
[2024-07-05] VITALS (9 sets, daily range): BP systolic 108–130; BP diastolic 68–75; PULSE 80–105; RESP 16–20; TEMP 36.2–37.1; O2SAT 89–98; BMI 41.6
[2024-07-05] MEDS: Acetaminophen 325 MG Tablet 650 MG PO ×2 (03:25→14:04)
[2024-07-05 05:32] LABS: Absolute Lymphocyte Count 0.65 X10^3/uL (0.83-4.51); Absolute Neutrophil Count 6.6 X10^3/uL (2.0-7.7); Basophil# 0.04 X10^3/uL; Basophil% 0.5 % (0-1); Eosinophil# 0.13 X10^3/uL; Eosinophils% 1.6 % (0-5); Hematocrit 28.5 % (37-47); Hemoglobin 8.9 g/dL (12.0-15.0); Lymphocyte # 0.65 X10^3/ul (0.83-4.51); Lymphocyte % 7.9 % (19-41); Mean Corp Hgb Conc 31.2 g/dL (32-36); Mean Corpuscular Hgb 28.7 pg (27.0-32.0); Mean Corpuscular Volume 91.9 fL (81-99); Mean Platelet Vol. 10.7 fl (6.2-12.0); Monocyte# 0.68 X10^3/uL; Monocyte% 8.3 % (0-10); NRBC Flagged by Analyzer 0 % (0-5); Neutrophil # 6.59 X10^3/uL (2.7-7.7); Neutrophil % 80.4 % (47-70); POSITIVE MORPHOLOGY YES; Platelet Count 204 K/mm3 (150-450); RBC Distribution Width CV 15.5 % (11.6-14.6); RBC Distribution Width SD 52.4 fl (35.1-43.9); White Blood Count 8.2 K/mm3 (4.4-11.0)
[2024-07-05 05:36] LABS: Differential Indicated SCAN CRITERIA MET
[2024-07-05] MEDS: Piperacil/Tazobactam 3.375 GM in 0.9% Normal Saline (50mL MB+) 50 ML IV ×3 (06:27→22:07)
[2024-07-05] MEDS: Levothyroxine 50 MCG Tablet PO (06:27)
[2024-07-05] MEDS: Levothyroxine 100 MCG Tablet 200 MCG PO (06:27)
[2024-07-05] MEDS: Budesonide Respules 0.5 MG/2 ML AMPUL.NEB. INHALATION ×2 (06:45→19:34)
[2024-07-05 06:49] LABS: Bedside Glucose 128 mg/dL (74-106)
[2024-07-05] MEDS: levoFLOXacin 250 MG Tablet PO (06:49)
[2024-07-05 06:55] LABS: Differential Comment SCANNED
[2024-07-05 07:10] LABS: Anion Gap 13 (5-15); BUN 38 mg/dL (4-19); BUN/Creat Ratio 17.5 RATIO (10-20); Calcium,Total 8.1 mg/dL (7.6-11.0); Carbon Dioxide 19.1 mmol/L (21.0-32.0); Chloride 103 mmol/L (98-108); Creatinine, Serum 2.18 mg/dL (0.70-1.20); EST Glomerular Filtration Rate 22 (>60); Estimated Creatinine Clearance 25.79 ml/min (50-250); Glucose 142 mg/dL (70-99); Potassium 4.1 mmol/L (3.3-5.1); Sodium Level 135 mmol/L (133-145)
[2024-07-05] MEDS: dilTIAZem CD 240 MG Capsule PO (08:44)
[2024-07-05] MEDS: Vibegron 75 MG TABLET PO (08:44)
[2024-07-05] MEDS: SACUBITRIL/VALSARTAN 49-51 MG TABLET 1 EACH PO ×2 (08:44→22:09)
[2024-07-05] MEDS: Potassium Chloride Oral Tablet 20 MEQ PO (08:45)
[2024-07-05] MEDS: Metoprolol Tartrate 100 MG Tablet PO ×2 (08:45→22:09)
[2024-07-05] MEDS: Pantoprazole Sodium 40 MG in 0.9% Normal Saline (100mL MB+) 100 ML 330 MG IV ×2 (08:45→21:59)
--- NOTE | 2024-07-05 08:46 | PN.SURG_ITS ---
Subjective Subjective Patient reportedly had some nausea after breakfast. She says that the nausea went away and she tolerated lunch and dinner well with no vomiting or nausea. She is having bowel function. Objective Data Objective Data Vital Signs: Vital Signs Temp Pulse Resp BP Pulse Ox O2 Del Method O2 Flow Rate 97.2 F L 87 20 H 130/68 H 98 Room Air 4 07/05/24 08:26 07/05/24 08:26 07/05/24 08:26 07/05/24 08:26 07/05/24 08:26 07/05/24 08:37 07/05/24 06:45 Oxygen Flow Rate (L/min) 4 Oxygen Delivery Method Room Air Weight: 265 lb 14.04 oz Body Mass Index (BMI) 41.6 Intake & Output: Intake and Output for Last 24 Hours 07/03/24 07/04/24 07/05/24 23:59 23:59 23:59 Intake Total 1610 / 1610 1380 / 1500 290 / 290 Output Total 3400 / 3400 1700 / 1900 450 / 450 Balance -1790 / -1790 -320 / -400 -160 / -160 Lab / Micro Data 07/05/24 04:37 07/05/24 04:37 Labs: Laboratory Results - last 24 hr 07/04/24 11:04: POC Glucose 169 H 07/04/24 14:00: Magnesium 2.1 07/04/24 15:59: POC Glucose 153 H 07/04/24 21:07: POC Glucose 162 H 07/04/24 21:58: Vancomycin Trough 24.8 H 07/05/24 04:37: WBC 8.2, RBC 3.10 L, Hgb 8.9 L, Hct 28.5 L, MCV 91.9, MCH 28.7, MCHC 31.2 L, RDW Std Deviation 52.4 H, RDW Coeff of Sudha 15.5 H, Plt Count 204, MPV 10.7, Immature Gran % (Auto) 1.300 H, Neut % (Auto) 80.4 H, Lymph % (Auto) 7.9 L, [place] % (Auto) 8.3, Eos % (Auto) 1.6, Baso % (Auto) 0.5, Absolute Neuts (auto) 6.6, Absolute Lymphs (auto) 0.65 L, Nucleated RBC % 0, Differential Comment SCANNED, Sodium 135, Potassium 4.1, Chloride 103, Carbon Dioxide 19.1 L, Anion Gap 13, BUN 38 H, Creatinine 2.18 H, Estim Creat Clear Calc 25.79 L, Est GFR (MDRD) Non-Af 22 L, BUN/Creatinine Ratio 17.5, Glucose 142 H, Calcium 8.1 07/05/24 06:26: POC Glucose 128 H Micro: Microbiology 06/30/24 12:52 Blood Culture (Wb) - Anticubital Left Blood Culture - Preliminary 06/30/24 20:33 Wound - Leg, Right Gram Stain - Final 06/30/24 20:33 Wound - Leg, Right Wound Culture - Final Enterococcus faecalis Stenotrophomonas maltophilia 06/30/24 12:40 Blood Culture (Wb) - Anticubital Left Blood Culture - Preliminary No growth in 48 hours. 06/30/24 20:33 Wound - Leg, Right Skin and Soft Tissue MRSA/MSSA (PCR - Final 06/30/24 12:52 Mucosa - Nose SARS-CoV-2, Influenza & RSV (PCR) - Final Radiography Diagnostic Testing: Radiology Impression KUB X-Ray 07/04/24 18:50 IMPRESSION: Gas-filled bowel loops, no distention, may represent ileus. Similar in appearance to the prior study. If there is high clinical suspicion for obstruction, CT of the abdomen and pelvis may be obtained for further characterization. Reading [facility] Rhythm Strip Rhythm Strip: A-fib Rate: 85 Ectopy: PVC(s) Physical Exam Const oriented x3 and no apparent distress Resp normal respiratory effort GI soft to palpation and non-tender Assessment & Plan Assessment/Plan (1) Ileus due to infection: PLAN: The patient had a KUB yesterday that showed nonspecific gas-filled loops of bowel. The patient seems to be clinically tolerating a diet despite the nausea that she had after breakfast. She tolerated lunch and dinner. No surgical intervention at this time. Okay for discharge from our standpoint. Lukas Nix MD Pager: [facility] [address] [place] [address], [address] [place] [address] Office:
[2024-07-05] MEDS: APIXABAN 2.5 MG TABLET (WCH) PO ×2 (09:36→22:09)
[2024-07-05] MEDS: Spironolactone 25 MG Tablet PO (09:36)
[2024-07-05] MEDS: Insulin Glargine-YFGN 100 UNIT/ML Pen 20 UNIT SC ×2 (09:38→22:10)
[2024-07-05] MEDS: Insulin Lispro 100 UNIT/ML INSULN.PEN SC ×2 (11:24→22:10)
[2024-07-05 11:31] LABS: Bedside Glucose 155 mg/dL (74-106)
[2024-07-05 11:45] LABS: Bedside Glucose 212 mg/dL (74-106)
[2024-07-05 12:20] LABS: Vancomycin, Random Level 21.5 ug/mL (0.0-15.0)
--- NOTE | 2024-07-05 12:28 | PCM.RX.CS ---
Consult Antibiotic Management Pharmacy has been consulted to manage selected antibiotic: Vancomycin Type of Intervention Type of Consult: Follow-up Suspected Infection Suspected Infection: Sepsis and Skin/Soft tissue Labs Labs: Sodium 135 mmol/L (133-145) 07/05/24 04:37 Potassium 4.1 mmol/L (3.3-5.1) 07/05/24 04:37 Chloride 103 mmol/L (98-108) 07/05/24 04:37 Carbon Dioxide 19.1 mmol/L (21.0-32.0) L 07/05/24 04:37 Anion Gap 13 (5-15) 07/05/24 04:37 BUN 38 mg/dL (4-19) H 07/05/24 04:37 Creatinine 2.18 mg/dL (0.70-1.20) H 07/05/24 04:37 Est GFR (MDRD) Non-Af 22 (>60) L 07/05/24 04:37 BUN/Creatinine Ratio 17.5 RATIO (10-20) 07/05/24 04:37 Glucose 142 mg/dL (70-99) H 07/05/24 04:37 Vancomycin Trough 24.8 ug/mL (5.0-15.0) H 07/04/24 21:58 Random Vancomycin 21.5 ug/mL (0.0-15.0) H 07/05/24 09:25 Microbiology Microbiology: Microbiology 06/30/24 12:52 Blood Culture (Wb) - Anticubital Left Blood Culture - Preliminary 06/30/24 20:33 Wound - Leg, Right Gram Stain - Final 06/30/24 20:33 Wound - Leg, Right Wound Culture - Final Enterococcus faecalis Stenotrophomonas maltophilia 06/30/24 12:40 Blood Culture (Wb) - Anticubital Left Blood Culture - Preliminary No growth in 48 hours. 06/30/24 20:33 Wound - Leg, Right Skin and Soft Tissue MRSA/MSSA (PCR - Final 06/30/24 12:52 Mucosa - Nose SARS-CoV-2, Influenza & RSV (PCR) - Final Dosing Weight Weight used for dosin.6 kg Estimated Creatinine Clearance Estimated Creatinine Clearance: 25.79 Goal Trough Goal Trough: 15-20 mcg/mL Pharmacy Plan for Drug Dosing Pharmacy Plan for Drug Dosing: VANCOMYCIN LEVEL RECEIVED Current Vancomycin Dose: on HOLD due to SUPRAtherapeutic drug level Number of Doses Received: 1500mg x3, 2000mg 1 Vancomycin Level: 21.5 Hours Since Last Dose: 35.5 Renal Function: sCr 2.18 Renal Function Trend: stable Lab/Micro: pending Vancomycin Plan/Comments: Vancomycin 1000mg Q24H to start at 21:00 07/05/24 following additional hold time for clearance Pending Level: Vancomycin trough @ 20:30 07/07/24 Pharmacy Service will continue to monitor and adjust dosing as required. Follow-Up Labs Follow-Up Labs: Trough: Vancomycin (07/07/24 @ 20:30)
--- NOTE | 2024-07-05 15:12 | PN_ITS ---
Subjective Subjective Patient seen and examined. She had no active complaints. She was feeling better today. She still did say her abdomen was a bit distended but she is passing gas and had a bowel movement and was comfortably eating breakfast. Review of systems otherwise negative. Objective Data Objective Data Vital Signs: Vital Signs Temp Pulse Resp BP Pulse Ox O2 Del Method O2 Flow Rate 97.9 F 99 18 124/75 H 94 Nasal Cannula 2 07/05/24 14:00 07/05/24 14:00 07/05/24 14:00 07/05/24 14:00 07/05/24 14:00 07/05/24 14:00 07/05/24 14:00 Oxygen Flow Rate (L/min) 2 Oxygen Delivery Method Nasal Cannula Weight: 265 lb 14.04 oz Body Mass Index (BMI) 41.6 Intake & Output: Intake and Output for Last 24 Hours 07/03/24 07/04/24 07/05/24 23:59 23:59 23:59 Intake Total 1610 / 1610 1380 / 1500 825 / 825 Output Total 3400 / 3400 1700 / 1900 700 / 700 Balance -1790 / -1790 -320 / -400 125 / 125 Lab / Micro Data 07/05/24 04:37 07/05/24 04:37 Labs: Laboratory Results - last 24 hr 07/04/24 15:59: POC Glucose 153 H 07/04/24 21:07: POC Glucose 162 H 07/04/24 21:58: Vancomycin Trough 24.8 H 07/05/24 04:37: WBC 8.2, RBC 3.10 L, Hgb 8.9 L, Hct 28.5 L, MCV 91.9, MCH 28.7, MCHC 31.2 L, RDW Std Deviation 52.4 H, RDW Coeff of Sudha 15.5 H, Plt Count 204, MPV 10.7, Immature Gran % (Auto) 1.300 H, Neut % (Auto) 80.4 H, Lymph % (Auto) 7.9 L, Cascade % (Auto) 8.3, Eos % (Auto) 1.6, Baso % (Auto) 0.5, Absolute Neuts (auto) 6.6, Absolute Lymphs (auto) 0.65 L, Nucleated RBC % 0, Differential Comment SCANNED, Sodium 135, Potassium 4.1, Chloride 103, Carbon Dioxide 19.1 L, Anion Gap 13, BUN 38 H, Creatinine 2.18 H, Estim Creat Clear Calc 25.79 L, Est GFR (MDRD) Non-Af 22 L, BUN/Creatinine Ratio 17.5, Glucose 142 H, Calcium 8.1 07/05/24 06:26: POC Glucose 128 H 07/05/24 09:25: Random Vancomycin 21.5 H 07/05/24 09:35: POC Glucose 155 H 07/05/24 11:23: POC Glucose 212 H Micro: Microbiology 06/30/24 12:52 Blood Culture (Wb) - Anticubital Left Blood Culture - Preliminary 06/30/24 20:33 Wound - Leg, Right Gram Stain - Final 06/30/24 20:33 Wound - Leg, Right Wound Culture - Final Enterococcus faecalis Stenotrophomonas maltophilia 06/30/24 12:40 Blood Culture (Wb) - Anticubital Left Blood Culture - Preliminary No growth in 48 hours. 06/30/24 20:33 Wound - Leg, Right Skin and Soft Tissue MRSA/MSSA (PCR - Final 06/30/24 12:52 Mucosa - Nose SARS-CoV-2, Influenza & RSV (PCR) - Final Radiography Diagnostic Testing: Radiology Impression KUB X-Ray 07/04/24 18:50 IMPRESSION: Gas-filled bowel loops, no distention, may represent ileus. Similar in appearance to the prior study. If there is high clinical suspicion for obstruction, CT of the abdomen and pelvis may be obtained for further characterization. [facility] Rhythm Strip Rhythm Strip: A-fib Rate: 85 Ectopy: PVC(s) Physical Exam Const alert, oriented x3 and no apparent distress Constitutional Narrative: in mild discomfort due to abdominal distension General Appearance: cooperative HEENT normocephalic, head/scalp atraumatic, moist oral mucous membranes and oropharynx normal Eyes PERRL and EOMs intact bilaterally Neck no lymphadenopathy and supple Lymph Lymphatic: no lymphadenopathy noted and no lymphedema noted Resp Resp Narrative: mildly diminished breath sounds bibasally, no wheezes or crackles. On room air. Cardio regular rate, regular rhythm, S1 normal heart sound, S2 normal heart sound and no murmurs GI normal to inspection, nondistended, normoactive bowel sounds, soft to palpation and non-tender GI Narrative: Extremity normal capillary refill, no clubbing, cyanosis or edema and no calf tenderness General Extremity: no tenderness to palpation of joints or extremities Skin Skin Narrative: RLE wrapped in bandage Neuro CN's II-XII intact bilaterally, no focal motor deficits and no sensory deficits noted Motor Exam: strength 5/5 throughout and general weakness Psych thought process normal and cooperative Mood & Affect: flat affect Assessment & Plan Assessment/Plan (1) Ileus due to infection: (2) Acute on chronic diastolic (congestive) heart failure: (3) Atrial fibrillation with RVR: PLAN: Plan #Sepsis and acute encephalopathy due to RLE cellulitis * patient much more alert and communicative. Encephalopathy has resolved. * Blood cultures growing gram-positive cocci possibly Enterococcus species and Stenotrophomonas maltophilia * ID on board. Per ID to continue on IV vancomycin and Zosyn. Levofloxacin added on per ID recommendations. To add on p.o. levofloxacin 500 mg x 1 and to continue with to 250 mg daily x 1 week. #Afib * Heart rate is better controlled now. * Cardiology on board. On Eliquis 2.5 mg twice daily. * continue metoprolol and cardizem. #Acute on chronic HFpEF * Being diuresed with IV Lasix. * Monitor intake and output. Fluid restriction to 1500 cc daily. * On Lasix and Entresto as well as spironolactone and metoprolol. * 2D echo showed EF of 50% with no regional wall motion abnormalities noted moderately dilated right ventricle with mild to moderate global right ventricular systolic dysfunction pulmonary artery systolic pressure of 35 mmHg. * Cr is further up to 2.18 today. Lasix held as she is on room air * #Ileus * resolved. General surgery on board. * Now on regular diet. She did complain of some abdominal distention yesterday and x-ray done showed gas-filled loops with no distention and may represent an ileus. She is however having bowel movements and passing gas so we will monitor for now. * #Tricuspid regurgitation: * Echoes have shown 4+ tricuspid regurgitation. * Being evaluated for possible tricuspid valve intervention at [facility]. * She did have a right heart cath on 06/29/2024 which showed PA pressure of 54/14 with right ventricular pressure 49/-3 and RA mean pressure of 6. * Follow-up with health care marketing manager on outpatient basis. #Chronic respiratory failure due to asthma and heart failure * now on room air * Breathing treatments with bronchodilators. * Titrate oxygen to maintain saturation above 90%. 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 * baseline Cr is ~ 1.4-1.7. * The Lasix she is on may have contributed to this. * hold lasix. On room air. #Hypertension; on metoprolol and Entresto as well as Cardizem and Lasix. #Hyperlipidemia: on statin #Type 2 diabetes mellitus: Insulin sliding scale. Accuchecks ACHS. on lantus 20 units bid. #History of breast cancer: stable. #GERD: on PPI #Rheumatoid arthritis #Hypothyroidism: on synthroid #DVT prophylaxis: on eliquis Code status: full code Disposition: To be determined after ID reviews patient tomorrow to give final antibiotic recommendation. Charges/Coding Visit Charges Inpatient E&M: 13854 Subs Hosp L2
[2024-07-05 17:13] LABS: Bedside Glucose 146 mg/dL (74-106)
[2024-07-05] MEDS: Vancomycin IV 1,000 MG/200 ML BAG 200 MG IV (21:59)
[2024-07-05] MEDS: Atorvastatin Calcium 80 MG Tablet PO (22:09)
[2024-07-05] MEDS: Menthol/Lanolin/Calamine/Znox 113 GM Tube 1 APPLIC TOPICAL (22:10)
[2024-07-05] MEDS: oxyCODONE 5 MG Tablet PO (22:19)
[2024-07-05 23:00] LABS: Bedside Glucose 196 mg/dL (74-106)
[2024-07-06] VITALS (11 sets, daily range): BP systolic 114–142; BP diastolic 59–92; PULSE 73–87; RESP 20–24; TEMP 36.2–36.8; O2SAT 89–98; BMI 42.3
[2024-07-06] MEDS: Acetaminophen 325 MG Tablet 650 MG PO (02:33)
[2024-07-06 05:52] LABS: Absolute Lymphocyte Count 0.61 X10^3/uL (0.83-4.51); Absolute Neutrophil Count 6.8 X10^3/uL (2.0-7.7); Basophil# 0.04 X10^3/uL; Basophil% 0.5 % (0-1); Eosinophil# 0.12 X10^3/uL; Eosinophils% 1.4 % (0-5); Hemoglobin 8.8 g/dL (12.0-15.0); Lymphocyte # 0.61 X10^3/ul (0.83-4.51); Lymphocyte % 7.3 % (19-41); Mean Corp Hgb Conc 31.4 g/dL (32-36); Mean Corpuscular Hgb 28.8 pg (27.0-32.0); Mean Corpuscular Volume 91.5 fL (81-99); Mean Platelet Vol. 10.2 fl (6.2-12.0); Monocyte# 0.64 X10^3/uL; Monocyte% 7.6 % (0-10); NRBC Flagged by Analyzer 0 % (0-5); Neutrophil % 81.3 % (47-70); Platelet Count 224 K/mm3 (150-450); RBC Distribution Width CV 15.5 % (11.6-14.6); RBC Distribution Width SD 50.9 fl (35.1-43.9); Red Blood Count 3.06 M/mm3 (4.2-5.4); White Blood Count 8.4 K/mm3 (4.4-11.0)
[2024-07-06 06:15] LABS: Anion Gap 12 (5-15); BUN 35 mg/dL (4-19); BUN/Creat Ratio 17.8 RATIO (10-20); Calcium,Total 8.6 mg/dL (7.6-11.0); Carbon Dioxide 20.3 mmol/L (21.0-32.0); Chloride 105 mmol/L (98-108); Creatinine, Serum 1.98 mg/dL (0.70-1.20); EST Glomerular Filtration Rate 24 (>60); Estimated Creatinine Clearance 28.65 ml/min (50-250); Glucose 188 mg/dL (70-99); Potassium 4.7 mmol/L (3.3-5.1); Sodium Level 137 mmol/L (133-145)
[2024-07-06] MEDS: Levothyroxine 100 MCG Tablet 200 MCG PO (06:20)
[2024-07-06] MEDS: Piperacil/Tazobactam 3.375 GM in 0.9% Normal Saline (50mL MB+) 50 ML IV (06:20)
[2024-07-06] MEDS: Levothyroxine 50 MCG Tablet PO (06:20)
[2024-07-06] MEDS: levoFLOXacin 250 MG Tablet PO (06:20)
[2024-07-06] MEDS: Insulin Lispro 100 UNIT/ML INSULN.PEN SC ×2 (06:21→16:43)
[2024-07-06] MEDS: Budesonide Respules 0.5 MG/2 ML AMPUL.NEB. INHALATION (06:25)
[2024-07-06 06:46] LABS: Bedside Glucose 160 mg/dL (74-106)
[2024-07-06] MEDS: Menthol/Lanolin/Calamine/Znox 113 GM Tube 1 APPLIC TOPICAL ×2 (09:10→16:55)
[2024-07-06] MEDS: Metoprolol Tartrate 100 MG Tablet PO (09:10)
[2024-07-06] MEDS: APIXABAN 2.5 MG TABLET (WCH) PO (09:10)
[2024-07-06] MEDS: SACUBITRIL/VALSARTAN 49-51 MG TABLET 1 EACH PO (09:10)
[2024-07-06] MEDS: Vibegron 75 MG TABLET PO (09:10)
[2024-07-06] MEDS: dilTIAZem CD 240 MG Capsule PO (09:10)
[2024-07-06] MEDS: Spironolactone 25 MG Tablet PO (09:10)
[2024-07-06] MEDS: Pantoprazole Sodium 40 MG in 0.9% Normal Saline (100mL MB+) 100 ML 330 MG IV (09:26)
[2024-07-06] MEDS: Insulin Glargine-YFGN 100 UNIT/ML Pen 20 UNIT SC (09:27)
[2024-07-06 11:32] LABS: Bedside Glucose 133 mg/dL (74-106)
--- NOTE | 2024-07-06 11:46 | PN.ID_ITS ---
Physical Exam Narrative Feeling better, leg less sore, no fever, no n/v/d. Const alert and no apparent distress General Appearance: cooperative Resp normal air movement and clear to auscultation bilaterally Cardio regular rate and regular rhythm GI soft to palpation, non-tender and non-distended Extremity General Extremity: edema Skin Skin Narrative: BLE wrapped ID ID: Route of nutrition/ use of supplements: [] Nutritional Intake: [] IV Site: [] Sidhu Catheter: [] Assessment & Plan Assessment/Plan (1) Cellulitis of right leg: (2) Sepsis: PLAN: Wound cx with steno and enterococcus. 1 of 2 bcx with GNC seen on gram stain but ngtd. Altered mental status rapidly resolved, no headache or neck pain. Will stop vanc/zosyn. Will cont po levaquin for 3 more days. Will follow prn d/w field case manager (3) Encephalopathy acute: (4) Cellulitis of right lower leg: (5) Bacteremia:
--- NOTE | 2024-07-06 13:37 | CASEMGMT ---
Per therapy patient would like to go to TCU for rehab. SW made a referral to TCU. Await response. Karen Mustafa VISITOR SERVICES TECHNICIAN ANNEALING OVEN OPERATOR
--- NOTE | 2024-07-06 14:02 | WOUNDNOTE ---
wound photo: right salazar
--- NOTE | 2024-07-06 14:03 | WOUNDNOTE ---
skin photo: right posterior lower leg
--- NOTE | 2024-07-06 14:21 | CASEMGMT ---
[facility] TCU can take patient. JOSH met with patient and let her know this information. SW also notified physician. Plan: d/c to [facility] TCU under skilled level of care. Karen LUCAS
--- NOTE | 2024-07-06 16:40 | PCM.TXEXTCAR ---
Diet Diet Order/Speech Therapy: 07/06/24 14:30 Diet: Cardiac - Heart Healthy Dietary Modifications:: Consistent Carbohydrate Type of Dietary Supplement:: Magic Cup Dessert Fluid restriction:: 1500 mL Diet Comments: chocolate magic cup with dinner Routine Orders/Code Status Routine Lab Work: - (Fingerstick blood sugars AC nightly, coverage with Humalog subcu per sliding scale: 200-250: 5 units, 251-300: 8 units, 301-350: 12 units) Code Status: Full Code DC O2, CPAP, BIPAP needs Home O2 Discharge instructions: Yes Type of respiratory needs?: Oxygen Oxygen frequency: Continuous Continuous oxygen liters per minute: 2 L Wound(s) r leg: Wound Type: cellulitis Dressing Change: Adaptic left upper forearm: Wound Type: Abrasion Rt Radial: Wound Type: Puncture Therapies Weight Bearing: Full weight bearing Physical Therapy: Eval and Treat Occupational Therapy: Eval and Treat Problem/Diagnosis (1) Cellulitis of right leg: Status: Acute Code(s): L03.115 - Cellulitis of right lower limb (2) Sepsis: Status: Acute Code(s): A41.9 - Sepsis, unspecified organism (3) Encephalopathy acute: Status: Acute Code(s): G93.40 - Encephalopathy, unspecified (4) Cellulitis of right lower leg: Status: Acute Code(s): L03.115 - Cellulitis of right lower limb (5) Bacteremia: Status: Acute Code(s): R78.81 - Bacteremia Allergies/Procedures Done in Hospital Allergies Sulfa (Sulfonamide Antibiotics) Allergy (Verified 06/26/24 14:01) PEELING RASH Procedures: 2-D Echocardiogram Type of Care/Length of Stay Estimated LOS: Convalescent Care Less Than 30 days Type of Care Needed: Skilled Rehab Potential: Good Prognosis: Good Additional Orders/Day of Discharge H&P will serve as current which was dated: 06/30/24 Day of Discharge: 07/06/24 Dietary and Speech Recommendations Dietitian Recommendations/Changes: Adjust to cardiac; consistent carbohydrate diet and continue 1500ml fluid restriction. Will order chocolate magic cup with dinner. Will monitor weight trends. Discharge Plan Admission Admit Date/Time: 06/30/24 15:02 Primary Reason for Your Visit: Sepsis due to right leg cellulitis, acute on chronic heart failure Attending Provider: Jabari Hobbs Primary Care Provider: Alexy Douglas Chi Consulting Providers: Liz Griffin; Subhash Malone; Nato Presley; Bebeto Corado; Oksana Coon Discharge Orders/Prescriptions Prescriptions: New acetaminophen 325 mg Tablet 650 mg PO Q4H PRN PRN (Reason: Fever, pain 1-12/25) Qty: 0 0RF albuterol sulfate 2.5 mg /3 mL (0.083 %) Solution For Nebulization 2.5 mg inhalation Q2H PRN PRN (Reason: Dyspnea, wheezing) Qty: 0 0RF levofloxacin 250 mg Tablet 250 mg PO DAILY@0600 Qty: 3 0RF Rx Instructions: Continue for 3 days starting 07/07/2024 then discontinue budesonide 0.5 mg/2 mL Suspension For Nebulization 0.5 mg inhalation BID.RT Qty: 0 0RF sennosides-docusate sodium [Stimulant Laxative Plus] 8.6-50 mg Tablet 2 tab PO BID PRN PRN (Reason: Constipation) Qty: 0 0RF alum-mag hydroxide-simeth [Mag-Al Plus Extra Strength] 400-400-40 mg/5 mL Suspension 30 ml PO Q6H PRN PRN (Reason: Gastric Burning) Qty: 0 0RF menthol-zinc oxide [Calmoseptine] 0.44-20.6 % Ointment 1 applic topical 4X/DAY Qty: 0 0RF Protocol: *Topical Application Instructions APPLICATION INSTRUCTIONS: apply to affected region pantoprazole [Protonix] 40 mg tablet,delayed release (DR/EC) 40 mg PO DAILY Qty: 1 0RF Continued sacubitril-valsartan [Entresto] 49-51 mg tablet 1 tab PO BID Gemtesa 75 mg tablet 75 mg PO DAILY levothyroxine 50 mcg tablet 50 mcg PO DAILY Rx Instructions: Take with 200 mcg tab to = 250 mcg daily rosuvastatin 40 mg tablet 40 mg PO QHS levothyroxine 200 mcg tablet 200 mcg PO DAILY Rx Instructions: Take with 50 mcg tab to = 250 mcg daily cholecalciferol (vitamin D3) [Vitamin D3] 25 mcg (1,000 unit) capsule 25 mcg PO DAILY potassium chloride 20 mEq tablet,ER particles/crystals 20 meq PO DAILY metoprolol tartrate 100 mg tablet 100 mg PO BID Eliquis 2.5 mg tablet 2.5 mg PO BID insulin degludec [Tresiba FlexTouch U-100] 100 unit/mL (3 mL) insulin pen 20 unit subcut BID spironolactone 25 mg tablet 25 mg PO DAILY diltiazem HCl 240 mg capsule,extended release 24hr 240 mg PO DAILY Qty: 90 3RF Discontinued glimepiride 1 mg tablet 1 mg PO DAILY acetaminophen 500 mg Tablet 1,000 mg PO Q8 PRN (Reason: arthiritis pain) Qty: 0 0RF furosemide 40 mg Tablet 80 mg PO DAILY albuterol sulfate 90 mcg/actuation HFA aerosol inhaler 2 puff inhalation Q4H PRN (Reason: shortness of breath or wheezing) Referrals / Follow Up: Alexy Douglas Chi, MD [Primary Care Provider] - Disposition Disposition (needs filled in before D/C Order can be placed): [facility]
--- NOTE | 2024-07-06 17:15 | DS.PCM_ITS ---
Providers Date of Admission: 06/30/24 Date of Discharge: 07/06/24 Primary Care Physician: Dr. Alexy Douglas MD Consultations 06/30/24 19:44 Consult: Cardiology Routine Consulting Provider: Subhash Malone Reason for Consult: PAF RVR, HF exac, valvular heart disease EMERGENT Consult: No MD Notified: Yes Date Notified: 06/30/24 Time Notified: 17:13 Method of Notification: Text Consult: Continuous Dryout Operator Helper / Pulmonary Medicine Routine Consulting Provider: Intensivists/Pulmonary Med Reason for Consult: Sepsis, UTI EMERGENT Consult: No Notified: Yes Date Notified: 06/30/24 Time Notified: 17:14 Method of Notification: Text 07/01/24 12:06 Consult: General Surgery Routine Consulting Provider: Nato Presley Reason for Consult: abdominal ileus EMERGENT Consult: No Notified: Yes Date Notified: 07/01/24 Time Notified: 12:06 Method of Notification: Text 07/02/24 07:14 Consult: Infectious Disease Routine Consulting Provider: Bebeto Corado Reason for Consult: gram negative bacteremia EMERGENT Consult: No Notified: Yes Date Notified: 07/02/24 Time Notified: 07:14 Method of Notification: Text 07/03/24 12:26 Consult: Onc/Wound/orthotist prosthetist Routine Comment: Reason for Consult:: RLE cellulitis Reason For Visit: SEPSIS, CELLULITIS, PAF RVR, HF EXAC Diagnosis Discharge Diagnosis (1) Type 2 diabetes mellitus with hyperglycemia: Status: Acute Code(s): E11.65 - Type 2 diabetes mellitus with hyperglycemia Plan 1. 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 #11 chronic obstructive pulmonary disease Medications at Discharge Home Medications apixaban 2.5 mg tablet (Eliquis) 2.5 mg PO BID blood thinner 08/20/23 sacubitril 49 mg-valsartan 51 mg tablet (Entresto) 1 tab PO BID heart 10/21/23 rosuvastatin 40 mg tablet 40 mg PO QHS cholesterol 12/02/23 insulin degludec 100 unit/mL (3 mL) subcutaneous pen (Tresiba FlexTouch U-100 insulin) 20 unit subcut BID diabetes 12/26/23 cholecalciferol (vitamin D3) 25 mcg (1,000 unit) capsule (Vitamin D3) 25 mcg PO DAILY supplement 01/20/24 vibegron 75 mg tablet (Gemtesa) 75 mg PO DAILY follow up needed 04/01/24 potassium chloride 20 mEq tablet,extended release(part/cryst) 20 meq PO DAILY hypokalemia 04/05/24 metoprolol tartrate 100 mg tablet 100 mg PO BID heart 04/25/24 levothyroxine 200 mcg tablet 200 mcg PO DAILY thyroid 05/14/24 levothyroxine 50 mcg tablet 50 mcg PO DAILY THYROID 05/14/24 diltiazem HCl 240 mg capsule,extended release 24 hr 240 mg PO DAILY heart #90 caps 06/05/24 spironolactone 25 mg tablet 25 mg PO DAILY DIURETIC 06/30/24 acetaminophen 325 mg tablet 650 mg (2 x 325 mg) PO Q4H PRN PRN Fever, pain - 12/25 #0 tabs 07/06/24 albuterol sulfate 2.5 mg/3 mL (0.083 %) solution for nebulization 2.5 mg (3 mL) inhalation Q2H PRN PRN Dyspnea, wheezing #0 mL 07/06/24 aluminum-mag hydroxide-simethicone 400 mg-400 mg-40 mg/5 mL oral susp (Mag-Al Plus Extra Strength) 30 ml PO Q6H PRN PRN Gastric Burning #0 mL 07/06/24 budesonide 0.5 mg/2 mL suspension for nebulization 0.5 mg (2 mL) inhalation BID.RT DYSPNEA/WHEEZING #0 mL 07/06/24 levofloxacin 250 mg tablet 250 mg PO DAILY@0600 ANTIBIOTIC #3 tabs 07/06/24 menthol 0.44 %-zinc oxide 20.6 % topical ointment (Calmoseptine) 1 applic topical 4X/DAY REDNESS BILAT BUTTOC #0 grams 07/06/24 pantoprazole 40 mg tablet,delayed release (Protonix) 40 mg PO DAILY GERD #1 TAB 07/06/24 sennosides 8.6 mg-docusate sodium 50 mg tablet (Stimulant Laxative Plus) 2 tab PO BID PRN PRN Constipation #0 tabs 07/06/24 Hospital Course Operations None Procedures None Summary of Care Provided Minutes Spent on Discharge: 32 Hospital Course: This 84-year-old white female was seen in the emergency room at [facility] with complaints of generalized weakness, workup in the ER revealed the patient to be septic from a right leg cellulitis and it was also noted the patient was in congestive heart failure. In addition patient was noted to be in atrial fibs with RVR, she chronically is in atrial fibrillation. Patient was admitted to PCU, she was treated with antibiotics and seen by pulmonary medicine, pulse ox was monitored, she was placed on diuretics for congestive heart failure and seen by cardiology who monitored her medications. Patient's blood cultures grew out stenotrophomonas and Enterococcus, ultimately she was transitioned over to Levaquin. On 07/06/2024, patient was seen and examined: On examination she appeared in good health and spirits, she does not appear to be in any distress. Vital signs as documented. Skin warm and dry and without overt rashes. Neck without JVD, thyroid appears normal, trachea is midline, neck is supple. Lungs clear, normal air movement was noted. Heart exam notable for irregular rhythm, normal sounds and absence of murmurs, rubs or gallops. Abdomen unremarkable and without evidence of organomegaly, masses, or abdominal aortic enlargement, bowel sounds are present in all 4 quadrants, no abdominal tenderness was noted. Extremities nonedematous, no cyanosis was noted, no clubbing was noted. Neuro: Cranial nerves II through XII are grossly intact, no focal motor deficits were noted, sensation to light touch and pinprick is intact, motor exam 5/5 throughout. Psych: Patient is alert and oriented x3, she does not appear anxious or depressed, she does not appear agitated. On 07/06/2024, patient was transferred to TCU in stable condition for inpatient rehab services. Weight / BMI Weight Weight: 122.6 kg Body Mass Index (BMI) 42.3 ABG / Lab / Microbiology Data 07/06/24 04:57 07/06/24 04:57 Laboratory: Laboratory Results - last 24 hr 07/05/24 22:08: POC Glucose 196 H 07/06/24 04:57: WBC 8.4, RBC 3.06 L, Hgb 8.8 L, Hct 28.0 L, MCV 91.5, MCH 28.8, MCHC 31.4 L, RDW Std Deviation 50.9 H, RDW Coeff of Sudha 15.5 H, Plt Count 224, MPV 10.2, Immature Gran % (Auto) 1.900 H, Neut % (Auto) 81.3 H, Lymph % (Auto) 7.3 L, [place] % (Auto) 7.6, Eos % (Auto) 1.4, Baso % (Auto) 0.5, Absolute Neuts (auto) 6.8, Absolute Lymphs (auto) 0.61 L, Nucleated RBC % 0, Sodium 137, Potassium 4.7, Chloride 105, Carbon Dioxide 20.3 L, Anion Gap 12, BUN 35 H, C reatinine 1.98 H, Estim Creat Clear Calc 28.65 L, Est GFR (MDRD) Non-Af 24 L, BUN/Creatinine Ratio 17.8, Glucose 188 H, Calcium 8.6 07/06/24 06:19: POC Glucose 160 H 07/06/24 11:14: POC Glucose 133 H Microbiology: Microbiology 06/30/24 12:52 Blood Culture (Wb) - Anticubital Left Blood Culture - Preliminary Acinetobacter Lwoffi 06/30/24 20:33 Wound - Leg, Right Gram Stain - Final 06/30/24 20:33 Wound - Leg, Right Wound Culture - Final Enterococcus faecalis Stenotrophomonas maltophilia 06/30/24 12:40 Blood Culture (Wb) - Anticubital Left Blood Culture - Final No growth in 5 days. 06/30/24 20:33 Wound - Leg, Right Skin and Soft Tissue MRSA/MSSA (PCR - Final 06/30/24 12:52 Mucosa - Nose SARS-CoV-2, Influenza & RSV (PCR) - Final D/C Instructions DC O2, CPAP, BIPAP Needs Home O2 Discharge instructions: Yes Type of respiratory needs?: Oxygen Oxygen frequency: Continuous Continuous oxygen liters per minute: 2 L DC home with Oxygen: Yes Home O2 MD Review: I have reviewed the oxygen testing, and the patient qualifies for home oxygen equipment and portability. The patient is mobile in the home and the community. Meaningful Use Info Meaningful Use Meaningful Use Diagnoses (Choose all that apply): CHF CHF JIMI/ARB ordered at discharge?: Yes Documented LVEF (%): 50 Ischemic Stroke Statin Dosing Therapy Reference: STATIN DOSE THERAPY REFERENCE: * Patients > 75 years receive moderate or high dose statin therapy. * Patients 75 years or YOUNGER should receive HIGH intensity statin dose unless contraindicated. You will be required to document reason for non-treatment if statin daily dose does not meet guidelines. HIGH DOSE STATIN THERAPY DAILY Atorvastatin > than or = to 40 mg Rosuvastatin > than or = to 20 mg Amlodipine + Atorvastatin > than or = to 2.5/40 mg Ezetimibe + Simvastatin 10/80 mg Simvastatin 80mg Discharge Plan Admission Admit Date/Time: 06/30/24 15:02 Primary Reason for Your Visit: Sepsis due to right leg cellulitis, acute on chronic heart failure Attending Provider: Jabari Hobbs Primary Care Provider: Alexy Douglas Chi Consulting Providers: Liz Griffin; Subhash Malone; Nato Presley; Bebeto Corado; Oksana Coon Discharge Orders/Prescriptions Prescriptions: New acetaminophen 325 mg Tablet 650 mg PO Q4H PRN PRN (Reason: Fever, pain 1-12/25) Qty: 0 0RF albuterol sulfate 2.5 mg /3 mL (0.083 %) Solution For Nebulization 2.5 mg inhalation Q2H PRN PRN (Reason: Dyspnea, wheezing) Qty: 0 0RF levofloxacin 250 mg Tablet 250 mg PO DAILY@0600 Qty: 3 0RF Rx Instructions: Continue for 3 days starting 07/07/2024 then discontinue budesonide 0.5 mg/2 mL Suspension For Nebulization 0.5 mg inhalation BID.RT Qty: 0 0RF sennosides-docusate sodium [Stimulant Laxative Plus] 8.6-50 mg Tablet 2 tab PO BID PRN PRN (Reason: Constipation) Qty: 0 0RF alum-mag hydroxide-simeth [Mag-Al Plus Extra Strength] 400-400-40 mg/5 mL Suspension 30 ml PO Q6H PRN PRN (Reason: Gastric Burning) Qty: 0 0RF menthol-zinc oxide [Calmoseptine] 0.44-20.6 % Ointment 1 applic topical 4X/DAY Qty: 0 0RF Protocol: *Topical Application Instructions APPLICATION INSTRUCTIONS: apply to affected region pantoprazole [Protonix] 40 mg tablet,delayed release (DR/EC) 40 mg PO DAILY Qty: 1 0RF Continued sacubitril-valsartan [Entresto] 49-51 mg tablet 1 tab PO BID Gemtesa 75 mg tablet 75 mg PO DAILY levothyroxine 50 mcg tablet 50 mcg PO DAILY Rx Instructions: Take with 200 mcg tab to = 250 mcg daily rosuvastatin 40 mg tablet 40 mg PO QHS levothyroxine 200 mcg tablet 200 mcg PO DAILY Rx Instructions: Take with 50 mcg tab to = 250 mcg daily cholecalciferol (vitamin D3) [Vitamin D3] 25 mcg (1,000 unit) capsule 25 mcg PO DAILY potassium chloride 20 mEq tablet,ER particles/crystals 20 meq PO DAILY metoprolol tartrate 100 mg tablet 100 mg PO BID Eliquis 2.5 mg tablet 2.5 mg PO BID insulin degludec [Tresiba FlexTouch U-100] 100 unit/mL (3 mL) insulin pen 20 unit subcut BID spironolactone 25 mg tablet 25 mg PO DAILY diltiazem HCl 240 mg capsule,extended release 24hr 240 mg PO DAILY Qty: 90 3RF Discontinued glimepiride 1 mg tablet 1 mg PO DAILY acetaminophen 500 mg Tablet 1,000 mg PO Q8 PRN (Reason: arthiritis pain) Qty: 0 0RF furosemide 40 mg Tablet 80 mg PO DAILY albuterol sulfate 90 mcg/actuation HFA aerosol inhaler 2 puff inhalation Q4H PRN (Reason: shortness of breath or wheezing) Referrals / Follow Up: Alexy Douglas Chi, MD [Primary Care Provider] - Disposition Disposition (needs filled in before D/C Order can be placed): Intermediate Facility Charges/Coding Visit Charges Inpatient E&M: 21979 Disch Hosp >30min
[2024-07-06 17:18] LABS: Bedside Glucose 184 mg/dL (74-106)
--- NOTE | 2024-07-06 17:39 | NURSING ---
This RN called report at this time to FLETCHER Pina on TCU.
== END 2024-07-06 18:55 | disposition skilled nursing facility (03) | DRG 871 ==
LOC: ED 14:26 → ICU 19:26 → PCU 07-02 12:48
PROVIDERS: Hospitalist; Nurse Practitioner; Student in an Organized Health Care Education/Training Program; Admitting Provider Family Medicine; Emergency Provider Emergency Medicine; PCP Family Medicine Geriatric Medicine; Visit Provider Internal Medicine
DX: A41.52 Sepsis due to Pseudomonas (principal); I50.33 Acute on chronic diastolic (congestive) heart failure; E87.20 Acidosis, unspecified; I24.89 Other forms of acute ischemic heart disease; K56.7 Ileus, unspecified; G93.40 Encephalopathy, unspecified; I13.0 Hypertensive heart and chronic kidney disease with heart failure and stage 1 through stage 4 chronic kidney disease, or unspecified chronic kidney disease; J96.11 Chronic respiratory failure with hypoxia; I48.20 Chronic atrial fibrillation, unspecified; N17.9 Acute kidney failure, unspecified; L03.115 Cellulitis of right lower limb; D63.1 Anemia in chronic kidney disease; E11.22 Type 2 diabetes mellitus with diabetic chronic kidney disease; N18.32 Chronic kidney disease, stage 3b; J44.9 Chronic obstructive pulmonary disease, unspecified; M06.9 Rheumatoid arthritis, unspecified; E66.813 Obesity, class 3; I70.0 Atherosclerosis of aorta; E03.9 Hypothyroidism, unspecified; I36.1 Nonrheumatic tricuspid (valve) insufficiency; D50.9 Iron deficiency anemia, unspecified; I87.2 Venous insufficiency (chronic) (peripheral); K21.9 Gastro-esophageal reflux disease without esophagitis; Z79.4 Long term (current) use of insulin; E11.59 Type 2 diabetes mellitus with other circulatory complications; E78.5 Hyperlipidemia, unspecified; E11.65 Type 2 diabetes mellitus with hyperglycemia; B95.2 Enterococcus as the cause of diseases classified elsewhere; Z79.890 Hormone replacement therapy; Z90.710 Acquired absence of both cervix and uterus; Z87.891 Personal history of nicotine dependence; Z79.84 Long term (current) use of oral hypoglycemic drugs; Z82.49 Family history of ischemic heart disease and other diseases of the circulatory system; Z79.01 Long term (current) use of anticoagulants; Z85.3 Personal history of malignant neoplasm of breast; Z68.39 Body mass index [BMI] 39.0-39.9, adult
CPT/HCPCS: 36415; 36600; 51702; 70450; 71045; 73590; 74018; 80048; 80053; 80061; 80202; 81001; 82550; 82803; 82962; 83605; 83735; 83880; 84100; 84145; 84443; 84484; 85025; 87040; 87070; 87077; 87186; 87205; 87631; 87640; 93005; 93306; 93451; 93971; 94640; 94668; 94762; 97116; 97162; 97166; 97530; 97535; 97802; 97803; 99152; 99153; 99285; C1894; Q9957; Q9967; A4216; C1751; C1769; C8929; J0295; J1940; J2405

== ENCOUNTER 2024-07-06 19:11 | Inpatient (IN) | payer MEDICARE, OTHER, SELFPAY ==
[2024-07-06 19:21] VITALS: BMI 41.1
--- NOTE | 2024-07-06 20:06 | NURSING ---
Dr. douglas notified of patient admission via sercure backline text, per Dr. Douglas D/c humalog sliding scale as listed on discharge med list
[2024-07-06 20:15] VITALS: BP 161/68; PULSE 101; RESP 18; TEMP 36.3; O2SAT 94
--- NOTE | 2024-07-06 20:33 | PCM.HP.STD ---
HPI - General General Date of Admission: 07/06/24 Date of Service: 07/07/24 Chief Complaint: Here for rehabilitation. [facility] Narrative TONJA SÁNCHEZ, is a 84 Female who presents with followin06/30/2024 [facility] ED weakness. Weakness, altered mental status, on toilet when squad arrived. Admit for sepsis, encephalopathy, right lower extremity cellulitis, afib with RVR, acute on chronic HFpEF. 06/30/2024 Admit [facility]. Unasyn IV for sepsis, right lower extremity cellulitis. Diuresis for acute on chronic HFpEF. 07/01/2024 Echo Normal LV size. LVSF lower limits of normal. LVEF 50%. Mild to moderate global RV systolic dysfunction. PASP 35mm HG. 07/01/2024 Abdominal distention. Zosyn IV right lower extremity cellulitis, blood cultures 1/2 bottles gram negative cocci. Metoprolol, Eliquis 2.5mg bid for atrial fibrillation with RVR. IV Lasix for acute on chronic HFpEF. General surgery recommended conservative management of ileus. 07/02/2024 Feels better. Vancomycin IV, Zosyn IV for right lower extremity cellulitis, enterococcus bacteremia. Hold Lasix for elevated creatinine from 1.73 to 2.09. Liquid diet, advance diet per General Surgery for ileus. 07/03/2024 No complaints, on room air. Vancomycin, Zosyn, Levaquin for cellulitis right lower extremity, Enterococcus bacteremia. Change IV Lasix to PO Lasix. Patient planning TTVR at [facility] for TR. 07/04/2024 Mild abdominal distention, passing gas, having bowel movements. ID recommended Levaquin 250g daily for 1 week. Creatinine 2.12. Advance diet as tolerated for ileus. 07/05/2024 Feeling better, eating breakfast Creatinine 2.18, Lasix held, patient on room air. Regular diet for ileus. 07/06/2024 ID wound culture steno, enterococcus, 1/2 blood culture gnc. Recommend 3 more days of Levaquin. 07/06/2024 Admit to TCU with debility, here for rehabilitation, strengthening, prior to discharge home alone. [facility] Medical History Ileus due to infection SOB (shortness of breath) (HFpEF) heart failure with preserved ejection fraction CHF (congestive heart failure) Chronic respiratory failure with hypoxia and hypercapnia Anticoagulated Asthma CHF exacerbation Congestive heart failure (CHF) IDDM (insulin dependent diabetes mellitus) Diabetes Rheumatoid arthritis On home oxygen therapy Low iron Insulin dependent diabetes mellitus Wears glasses Wears dentures Cancer History of steroid therapy History of renal disease High cholesterol Restless legs Injury of back Back pain Dietary restriction Shortness of breath on exertion History of pain when walking History of edema History of echocardiogram History of stress test Cardiology follow-up encounter History of CHF (congestive heart failure) History of atrial fibrillation Hyperlipidemia Overactive bladder Hypothyroidism Diabetes mellitus Hypertension Chronic kidney disease, stage 3b Former smoker Atrial fibrillation Hypertension Chronic anticoagulation Skin cancer, basal cell Actinic keratosis Skin lesion Skin cancer Chronic diastolic (congestive) heart failure Longstanding persistent atrial fibrillation Diastolic dysfunction Secondary pulmonary arterial hypertension Non-rheumatic tricuspid valve insufficiency Stage 2 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 Right hip pain Disc degeneration, lumbar Fatigue UTI (urinary tract infection) Hypoxia Hypersomnia COPD (chronic obstructive pulmonary disease) Obesity Tobacco dependence in remission CKD (chronic kidney disease) stage 3, GFR 30-59 ml/min Breast cancer Essential (primary) hypertension BMI 39.0-39.9,adult Erosion of bladder suspension mesh SHAKIRA (stress urinary incontinence, female) Home Medications ?Medication ?Instructions ?Recorded ?Last Taken ?Type apixaban 2.5 mg tablet (Eliquis) 2.5 mg PO BID blood thinner 08/20/23 07/06/24 09:10 History sacubitril 49 mg-valsartan 51 mg 1 tab PO BID heart 10/21/23 07/06/24 09:10 History tablet (Entresto) rosuvastatin 40 mg tablet 40 mg PO QHS cholesterol 12/02/23 04/24/24 History insulin degludec 100 unit/mL (3 20 unit subcut BID diabetes 12/26/23 07/06/24 09:30 History mL) subcutaneous pen (Tresiba FlexTouch U-100 insulin) cholecalciferol (vitamin D3) 25 25 mcg PO DAILY supplement 01/20/24 04/24/24 History mcg (1,000 unit) capsule (Vitamin D3) vibegron 75 mg tablet (Gemtesa) 75 mg PO DAILY follow up needed 04/01/24 07/06/24 09:10 History potassium chloride 20 mEq 20 meq PO DAILY hypokalemia 04/05/24 04/24/24 History tablet,extended release(part/cryst) metoprolol tartrate 100 mg tablet 100 mg PO BID heart 04/25/24 07/06/24 09:10 History levothyroxine 200 mcg tablet 200 mcg PO DAILY thyroid 05/14/24 07/06/24 History levothyroxine 50 mcg tablet 50 mcg PO DAILY THYROID 05/14/24 07/06/24 History diltiazem HCl 240 mg 240 mg PO DAILY heart #90 caps 06/05/24 07/06/24 Rx capsule,extended release 24 hr spironolactone 25 mg tablet 25 mg PO DAILY DIURETIC 06/30/24 07/06/24 09:10 History acetaminophen 325 mg tablet 650 mg (2 x 325 mg) PO Q4H PRN PRN 07/06/24 07/06/24 02:35 Rx Fever, pain -12/25 #0 tabs albuterol sulfate 2.5 mg/3 mL 2.5 mg (3 mL) inhalation Q2H PRN 07/06/24 Unknown Rx (0.083 %) solution for nebulization PRN Dyspnea, wheezing #0 mL aluminum-mag hydroxide-simethicone 30 ml PO Q6H PRN PRN Gastric 07/06/24 Unknown Rx 400 mg-400 mg-40 mg/5 mL oral susp Burning #0 mL (Mag-Al Plus Extra Strength) budesonide 0.5 mg/2 mL suspension 0.5 mg (2 mL) inhalation BID.RT 07/06/24 07/06/24 06:25 Rx for nebulization DYSPNEA/WHEEZING #0 mL levofloxacin 250 mg tablet 250 mg PO DAILY@0600 ANTIBIOTIC #3 07/06/24 07/06/24 Rx tabs menthol 0.44 %-zinc oxide 20.6 % 1 applic topical 4X/DAY REDNESS 07/06/24 Unknown Rx topical ointment (Calmoseptine) BILAT BUTTOC #0 grams pantoprazole 40 mg tablet,delayed 40 mg PO DAILY GERD #1 TAB 07/06/24 Unknown Rx release (Protonix) sennosides 8.6 mg-docusate sodium 2 tab PO BID PRN PRN Constipation 07/06/24 Unknown Rx 50 mg tablet (Stimulant Laxative #0 tabs Plus) Allergy/AdvReac Type Severity Reaction Status Date / Time Sulfa (Sulfonamide Allergy PEELING Verified 06/26/24 14:01 Antibiotics) RASH Family History Mother Colon cancer Cancer skin, bladder Daughter Cancer Thyroid Sister CAD (coronary artery disease) Surgical History History of surgery Hx of colonoscopy Hx of right cataract extraction Hx of left cataract extraction History of excision of lesion Hx of local excision of skin lesion History of cardioversion (03/20/19) History of hysterectomy History of partial mastectomy History of left heart catheterization (05/31/14) Social History household members: none housing: house current occupational status: retired Smoking Status: Former smoker how long ago did patient quit smokin, 2p/day second hand exposure: Yes alcohol intake: current alcohol intake frequency: holidays/special occasions only substance use type: does not use ROS Constitutional Constitutional: Reports weakness; Denies chills, fever(s) or weight gain ENT HEENT: Denies headache(s), nasal congestion or nasal discharge Cardiovascular Cardiovascular: Denies chest pain or palpitations Respiratory/Chest Respiratory/Chest: Reports shortness of breath at rest; Denies cough, excessive phlegm production or shortness of breath with exertion Gastrointestinal Gastrointestinal: Denies abdominal pain, nausea or vomiting Genitourinary Genitourinary: Denies dysuria Musculoskeletal Musculoskeletal: Denies joint pain or joint swelling Integumentary Integumentary: Denies rash or wounds Neurologic Neurologic: Denies focal weakness, numbness or tingling Psychiatric Psychiatric: Denies anxiety, auditory hallucinations, depression, homicidal ideation or suicidal ideation Vital Signs Vital Signs Vital Signs: 07/06/24 20:15 Temperature 97.4 F L Temperature Source Temporal Pulse Rate 101 H Respiratory Rate 18 Blood Pressure 161/68 H Blood Pressure Mean 99 Blood Pressure Source Monitor Blood Pressure Position Semi-Fowlers Blood Pressure Location Left Arm Pulse Ox 94 Oxygen Delivery Method Nasal Cannula Oxygen Flow Rate (L/min) 3 Weight Weight: 122.606 kg Body Mass Index (BMI) 41.1 Physical Exam Const alert General Appearance: cooperative HEENT normocephalic Eyes PERRL and EOMs intact bilaterally Neck supple, no JVD and no carotid bruits Resp normal respiratory effort, normal air movement and clear to auscultation bilaterally Cardio regular rate and regular rhythm GI non-tender GI Narrative: Distended, full to palpation. Extremity normal capillary refill General Extremity: Negative for edema Skin no rashes or lesions noted General Skin Exam: no breakdown Psych affect normal Appearance: appropriate Assessment & Plan Assessment/Plan (1) Debility: (2) Encephalopathy acute: (3) Cellulitis of right leg: (4) Sepsis: (5) Bacteremia: (6) Ileus due to infection: (7) Acute on chronic diastolic (congestive) heart failure: (8) Atrial fibrillation with RVR: (9) Tricuspid valve insufficiency: QUALIFIERS: Cardiac valve disease etiology: nonrheumatic Qualified Code(s): I36.1 - Nonrheumatic tricuspid (valve) insufficiency (10) COPD (chronic obstructive pulmonary disease): (11) Hyperlipidemia: (12) Iron deficiency anemia: (13) Type 2 diabetes mellitus with hyperglycemia: (14) Chronic kidney disease, stage 3b: (15) Hypothyroidism: PLAN: Plan 84 year old female with below past medical history hospitalized for sepsis 2/2 cellulitis right lower extremity, bacteremia, complicated by encephalopathy, atrial fibrillation with RVR, acute on chronic HFpEF, acute kidney injury, admitted to TCU with debility, here for rehabilitation, strengthening, prior to discharge home alone. Debility - PT/OT. Pain - Tylenol 1000mg q6 prn pain (1-10). Bowel - senna/colace 2 tablets bid latosha. Adult immunization - Administer pneumonia vaccine, covid vaccine, flu vaccine as appropriate. DVT prophylaxis - Eliquis. COPD - Budesonide 0.5mg inhaled bid, Albuterol 2.5mg q2h prn. Atrial fibrillation - Metoprolol 100mg bid, Diltiazem 240mg daily, Eliquis 2.5mg bid. Hyperlipidemia - Atorvastatin 80g qhs. Vitamin D deficiency - D3 25mcg daily. Right lower extremity cellulitis/bacteremia - Levaquin 250mg daily thru 06/29/2024. Hypothyroidism - Levothyroxine 250mcg daily. GERD - Pantoprazole 40mg daily, Mylanta II 30mL q6 prn. Skin irritation - Calmoseptine topical 4x/day. Hypokalemia - KCL 20meq daily. Chronic HFpEF - Metoprolol 100mg bid, Entresto 49/51mg bid, Aldactone 25mg daily, Furosemide 40mg iv x 1 dose, Chest X-ray. Diabetes Mellitus II - Glargine 20 units bid. OAB - Gemtesa 75mg daily. Ileus - X-ray abdomen.
[2024-07-06 21:04] VITALS: PULSE 107
[2024-07-06] MEDS: APIXABAN 2.5 MG TABLET (WCH) PO (21:04)
[2024-07-06] MEDS: Metoprolol Tartrate 100 MG Tablet PO (21:04)
[2024-07-06] MEDS: Atorvastatin Calcium 80 MG Tablet PO (21:04)
[2024-07-06] MEDS: SACUBITRIL/VALSARTAN 49-51 MG TABLET 1 EACH PO (21:04)
[2024-07-06 21:24] LABS: Bedside Glucose 173 mg/dL (74-106)
[2024-07-06] MEDS: Insulin Glargine-YFGN 100 UNIT/ML Pen 20 UNIT SC (23:01)
[2024-07-06] MEDS: Menthol/Lanolin/Calamine/Znox 113 GM Tube 1 APPLIC TOPICAL (23:02)
[2024-07-07] VITALS (11 sets, daily range): BP systolic 134–147; BP diastolic 66–74; PULSE 77–97; RESP 16–28; TEMP 36.2–36.5; O2SAT 91–98; BMI 41.1
[2024-07-07] MEDS: Menthol/Lanolin/Calamine/Znox 113 GM Tube 1 APPLIC TOPICAL ×4 (05:23→22:21)
[2024-07-07] MEDS: Levothyroxine 100 MCG Tablet 200 MCG PO (05:23)
[2024-07-07] MEDS: Levothyroxine 50 MCG Tablet PO (05:23)
[2024-07-07] MEDS: levoFLOXacin 250 MG Tablet PO (05:24)
[2024-07-07] MEDS: Budesonide Respules 0.5 MG/2 ML AMPUL.NEB. INHALATION (06:00)
[2024-07-07] MEDS: Albuterol 2.5 MG/3 ML VIAL.NEB. INHALATION (06:00)
[2024-07-07 06:27] LABS: Bedside Glucose 126 mg/dL (74-106)
--- NOTE | 2024-07-07 07:25 | RAD_ITS ---
EXAM: XR Abdomen, 1 View CLINICAL INDICATION: ABDOMINAL DISTENTION. TECHNIQUE: Frontal supine view of the abdomen/pelvis. COMPARISON: XR Abdomen dated 07/07/2024 FINDINGS: GASTROINTESTINAL TRACT: Fecal retention in the colon consistent with constipation. Nonspecific distention of the bowel loops, predominantly left upper abdominal quadrant. BONES/JOINTS: Unremarkable. No acute fracture. RAD/Abdomen Single View IMPRESSION: 1. Fecal retention in the colon consistent with constipation. 2. Nonspecific distention of the bowel loops, predominantly left upper abdomin al quadrant. Reading Location[facility]
[2024-07-07 07:38] LABS: Hematocrit 28.4 % (37-47); Hemoglobin 9.1 g/dL (12.0-15.0); Mean Corpuscular Volume 90.4 fL (81-99); Mean Platelet Vol. 9.5 fl (6.2-12.0); POSITIVE COUNT YES; POSITIVE MORPHOLOGY YES; Platelet Count 293 K/mm3 (150-450); RBC Distribution Width CV 15.4 % (11.6-14.6); RBC Distribution Width SD 51.2 fl (35.1-43.9); Red Blood Count 3.14 M/mm3 (4.2-5.4); White Blood Count 9.5 K/mm3 (4.4-11.0)
[2024-07-07 07:46] LABS: Differential Indicated MANUAL DIFF
--- NOTE | 2024-07-07 08:08 | PCM.PN.DRR ---
Documented by User: Cole Gunn 07/07/24 08:40 TCU RX Drug Regimen Review Subjective/Objective Subjective/Objective Subjective: TCU admission note. 84 year old female with below past medical history hospitalized for sepsis 2/2 cellulitis right lower extremity, bacteremia, complicated by encephalopathy, atrial fibrillation with RVR, acute on chronic HFpEF, acute kidney injury, admitted to TCU with debility, here for rehabilitation, strengthening, prior to discharge home alone. Objective: Allergies Sulfa (Sulfonamide Antibiotics) Allergy (Verified 06/26/24 14:01) PEELING RASH Current Medications Generic Name Dose Route Start Last Admin Trade Name Freq PRN Reason Stop Dose Admin Acetaminophen 1,000 mg 07/06/24 20:48 Acetaminophen 500 Mg Tablet PO Q6H PRN PRN Pain Score 1-10 Al Hydroxide/Mg Hydroxide 30 ml 07/06/24 19:49 Mag Hydrox/Al Hydrox/Simeth 30 Ml Udc PO Q6H PRN PRN Gastric Burning Albuterol Sulfate 2.5 mg 07/06/24 19:49 07/07/24 06:00 Albuterol 2.5 Mg/3 Ml Vial.Neb. INHALATION 2.5 mg Q2H PRN PRN Administration Dyspnea, wheezing Apixaban 2.5 mg 07/06/24 22:00 07/06/24 21:04 Apixaban 2.5 Mg Tablet (Wch) PO 2.5 mg BID DAVID Administration Atorvastatin Calcium 80 mg 07/06/24 22:00 07/06/24 21:04 Atorvastatin Calcium 80 Mg Tablet PO 80 mg QHS DAVID Administration Budesonide 0.5 mg 07/06/24 20:00 07/07/24 06:00 Budesonide Respules 0.5 Mg/2 Ml Ampul.Neb. INHALATION 0.5 mg BID.RT DAVID Administration Calamine/Phenol 1 applic 07/06/24 22:00 07/07/24 05:23 Menthol/Lanolin/Calamine/Znox 113 Gm Tube TOPICAL 1 applic 4X/DAY DAVID Administration Protocol Cholecalciferol 25 mcg 07/07/24 10:00 Cholecalciferol (Vit D3) 25 Mcg Tablet (1,000 Units) PO DAILY DAVID Diltiazem HCl 240 mg 07/07/24 10:00 Diltiazem Cd 240 Mg Capsule PO DAILY [facility] Protocol Insulin Glargine 20 unit 07/06/24 22:00 07/06/24 23:01 Insulin Glargine-Yfgn 100 Unit/Ml Pen SC 20 unit BID DAVID Administration Levofloxacin 250 mg 07/07/24 06:00 07/07/24 05:24 Levofloxacin 250 Mg Tablet PO 07/09/24 06:01 250 mg DAILY@0600 DAVID Administration Levothyroxine Sodium 50 mcg 07/07/24 06:00 07/07/24 05:23 Levothyroxine 50 Mcg Tablet PO 50 mcg DAILY@0600 DAVID Administration Levothyroxine Sodium 200 mcg 07/07/24 06:00 07/07/24 05:23 Levothyroxine 100 Mcg Tablet PO 200 mcg DAILY@0600 DAVID Administration Magnesium Citrate 300 ml 07/07/24 07:33 Magnesium Citrate 300 Ml PO DAILY PRN Constipation Metoprolol Tartrate 100 mg 07/06/24 22:00 07/06/24 21:04 Metoprolol Tartrate 100 Mg Tablet PO 100 mg BID DAVID Administration Protocol Pantoprazole Sodium 40 mg 07/07/24 10:00 Pantoprazole Sodium 40 Mg Tablet PO DAILY [facility] Potassium Chloride 20 meq 07/07/24 08:00 Potassium Chloride Oral Tablet 20 Meq PO BREAKFAST DAVID Sacubitril/Valsartan 1 each 07/06/24 22:00 07/06/24 21:04 Sacubitril/Valsartan 49-51 Mg Tablet PO 1 each BID [facility] Administration Senna/Docusate Sodium 2 tablet 07/07/24 10:00 Senna/Docusate Sodium 1 Tablet PO BID [facility] Sodium Chloride 10 - 40 ml 07/06/24 20:19 0.9% Saline Lock 10 Ml Syringe IV UD PRN SALINE FLUSH Spironolactone 25 mg 07/07/24 10:00 Spironolactone 25 Mg Tablet PO DAILY [facility] Protocol Tuberculin PPD 0.1 ml 07/07/24 10:00 Tuberculin,Purif.Prot.Deriv. 50 Tu/Ml Vial ID 07/07/24 10:01 X1 ONE Tuberculin PPD 0.1 ml 07/14/24 10:00 Tuberculin,Purif.Prot.Deriv. 50 Tu/Ml Vial ID 07/14/24 10:01 X1 ONE Problem List Type 2 diabetes mellitus with hyperglycemia (Acute) Iron deficiency anemia (Acute) Hyperlipidemia (Acute) Hypothyroidism (Acute) COPD (chronic obstructive pulmonary disease) (Chronic) Vital Signs Temp Pulse Resp BP Pulse Ox O2 Del Method O2 Flow Rate 97.5 F L 77 28 H 147/70 H 94 Nasal Cannula 4 07/07/24 07:26 07/07/24 07:38 07/07/24 07:26 07/07/24 07:26 07/07/24 07:38 07/07/24 07:38 07/07/24 07:38 Oxygen Flow Rate (L/min) 4 Oxygen Delivery Method Nasal Cannula Weight: 122.606 kg Body Mass Index (BMI) 41.1 Assessment/Plan: 1. Pain: acetaminophen 1000 mg PO Q6H PRN pain (1-10). The patient has not required any PRN doses of acetaminophen so far this admission. Please continue to monitor for pain levels, PRN medication usage, and LFTs (AST/ALT = 12/11 U/L on 07/01/24). 2. Bowel: senna/docusate 2 tablets PO BID, magnesium citrate 300 mL PO daily PRN constipation. The patient has not required any PRN doses of magnesium citrate so far this admission and the patient's last bowel movement is documented as 07/06/24. Please continue to monitor for bowel movements, constipation, diarrhea and PRN medication usage. 3. Atrial fibrillation/Chronic HFpEF: apixaban 2.5 mg PO BID, diltiazem 240 mg PO daily, metoprolol tartrate 100 mg PO BID, sacubitril/valsartan 49-51 mg PO BID, spironolactone 25 mg PO daily. Please continue to monitor for s/s of stroke, for s/s of a CHF exacerbation such as shortness of breath and edema, for s/s of bleeding/excessive bruising, renal function (serum creatinine = 1.75 mg/dL with creatinine clearance ~ 32 mL/min on 07/07/24), hemoglobin levels (Hgb = 9.1 g/dL on 07/07/24), platelet counts (plt = 293 K/mm3 on 07/07/24), heart rates (recent range = 73-107 beats/min), blood pressures (recent range = 120-161/59-81 mmHg), for constipation, for fatigue, for s/s of angioedema, potassium levels (K = 5.0 mmol/L on 07/07/24), and for s/s of dehydration. 4. Right lower extremity cellulitis/bacteremia: levofloxacin 250 mg PO daily through 07/09/24. Please continue to monitor for s/s of infection, for fevers (T = 97.5 F on 07/07/24), WBC count (WBC = 9.5 K/mm3 on 07/07/24), blood pressures (recent range = 120-161/59-81 mmHg), for s/s of tendon rupture, and blood glucose levels (recent range = 133-196 mg/dL). 5. COPD: budesonide 0.5 mg Inhalation BID, albuterol 2.5 mg inhalation Q2H PRN. The patient has required 1 dose of PRN albuterol so far this admission. Please continue to monitor for shortness of breath, for PRN medication usage, for palpitations, and for s/s of thrush. If the patient truly has a diagnosis of COPD, then the patient's inhaler regimen should be tweaked to maximize benefits and minimize adverse events. A bronchodilator such as umeclidinium would be a good option for the patient, and discontinuing the budesonide (unless the patient has an asthma component to their COPD) would help minimize the risk of thrush and pneumonia, while also providing better COPD control. 6. Hypothyroidism: levothyroxine 250 mcg PO daily. Please continue to monitor thyroid hormone levels (TSH = 2.64 uIU/mL on 07/01/24 with free T4 = 1.22 ng/dL on 01/16/24), and for s/s of hypo/hyperthyroidism. 7. Diabetes Mellitus II: insulin glargine 20 units SC BID. Please continue to monitor blood glucose levels (recent range = 133-196 mg/dL), hemoglobin A1C levels (A1C = 8.9% on 03/17/24), and for s/s of hypo/hyperglycemia. 8. GERD: pantoprazole 40 mg PO daily, mylanta 30 mL PO Q6H PRN gastric burning. The patient has not required any PRN doses of mylanta so far this admission. Please continue to monitor for s/s of GERD, for diarrhea that could indicate clostridium difficile infection, and for s/s fo bone resorption issues such as fractures. 9. Hyperlipidemia: atorvastatin 80 mg PO QHS. Please continue to monitor lipid levels (cholesterol = 103 mg/dL on 07/01/24, with LDL = 33 mg/dL on 04/26/24), LFTs (AST/ALT = 12/11 U/L on 07/01/24), and for myalgias. 10. Overactive bladder: vibegron 75 mg PO daily. Please continue to monitor for bladder spasms. 11. Hypokalemia: potassium chloride 20 mEq PO breakfast. Please continue to monitor potassium levels (K = 5.0 K/mm3 on 07/07/24), and for GI distress. 12. Vitamin D deficiency: cholecalciferol 25 mcg PO daily. Please continue to monitor vitamin D levels (Vitamin D = 50.1 ng/mL on 03/31/24). 13. Skin irritation: calmoseptine topically 4x/day. Please continue to monitor for skin irritation and skin integrity. Assessment/Plan for indications treated with psychotropic medications: NA Medical chart and medication regimen reviewed. The following medication irregularities or issues were identified: 1. COPD: budesonide 0.5 mg Inhalation BID, albuterol 2.5 mg inhalation Q2H PRN. f the patient truly has a diagnosis of COPD, then the patient's inhaler regimen should be tweaked to maximize benefits and minimize adverse events. A bronchodilator such as umeclidinium would be a good option for the patient, and discontinuing the budesonide (unless the patient has an asthma component to their COPD) would help minimize the risk of thrush and pneumonia, while also providing better COPD control. Date Date of Note: 07/07/24 Documented by User: Dr. Alexy Douglas MD 07/07/24 09:00 TCU RX Drug Regimen Review Provider Comments Provider responsibility Provider Comments to Recommendations by Pharmacy Agree
--- NOTE | 2024-07-07 08:15 | RAD_ITS ---
EXAM: XR Chest, 2 Views CLINICAL INDICATION: SHORTNESS OF BREATH. TECHNIQUE: Frontal and lateral views of the chest. COMPARISON: XR Chest dated 06/30/2024 FINDINGS: LUNGS AND PLEURAL SPACES: Pulmonary congestion and edema. Pneumonia cannot be excluded. No pneumothorax. HEART: Unremarkable. No cardiomegaly. MEDIASTINUM: Unremarkable. Normal mediastinal contour. BONES/JOINTS: Unremarkable. No acute fracture. RAD/Chest PA and Lateral IMPRESSION: Pulmonary congestion and edema. Pneumonia cannot be excluded. Reading [facility]
[2024-07-07 08:17] LABS: Anion Gap 10 (5-15); BUN 34 mg/dL (4-19); BUN/Creat Ratio 19.7 RATIO (10-20); Calcium,Total 9.2 mg/dL (7.6-11.0); Carbon Dioxide 21.6 mmol/L (21.0-32.0); Chloride 106 mmol/L (98-108); Creatinine, Serum 1.75 mg/dL (0.70-1.20); EST Glomerular Filtration Rate 28 (>60); Estimated Creatinine Clearance 32.42 ml/min (50-250); Glucose 133 mg/dL (70-99); Sodium Level 138 mmol/L (133-145)
[2024-07-07 08:19] LABS: Eosinophil 3 % (0-5); Lymphocyte 11 % (19-41); Monocyte 3 % (0-10); Neutrophil-Band 1 % (0-5); Neutrophil-Segmented 82 % (47-70); Total Cells Counted 100 (MANUAL DIFF)
[2024-07-07 08:20] LABS: Absolute Lymphocyte Count 1.05 X10^3/uL (0.83-4.51); Absolute Neutrophil Count 7.9 X10^3/uL (2.0-7.7); Platelet Estimate ADEQUATE (ADEQ); Red Cell Morphology NORM C+C NORMAL (NORM C&C)
[2024-07-07 08:35] LABS: Pro- Brain NATRIURETIC PEPTIDE 10171 pg/mL (<=1800)
[2024-07-07] MEDS: Potassium Chloride Oral Tablet 20 MEQ PO (09:17)
[2024-07-07] MEDS: dilTIAZem CD 240 MG Capsule PO (09:18)
[2024-07-07] MEDS: Spironolactone 25 MG Tablet PO (09:18)
[2024-07-07] MEDS: Metoprolol Tartrate 100 MG Tablet PO ×2 (09:19→22:23)
[2024-07-07] MEDS: Vibegron 75 MG TABLET PO (09:19)
[2024-07-07] MEDS: SACUBITRIL/VALSARTAN 49-51 MG TABLET 1 EACH PO ×2 (09:19→22:22)
[2024-07-07] MEDS: APIXABAN 2.5 MG TABLET (WCH) PO ×2 (09:19→22:22)
[2024-07-07] MEDS: Pantoprazole Sodium 40 MG Tablet PO (09:20)
[2024-07-07] MEDS: Cholecalciferol (VIT D3) 25 MCG TABLET (1,000 UNITS) PO (09:20)
[2024-07-07] MEDS: Senna/Docusate Sodium 1 Tablet 2 TABLET PO ×2 (09:23→22:24)
[2024-07-07] MEDS: Insulin Glargine-YFGN 100 UNIT/ML Pen 20 UNIT SC ×2 (09:27→22:25)
[2024-07-07] MEDS: Tuberculin,Purif.prot.deriv. 50 TU/ML Vial 0.1 ML ID (09:33)
[2024-07-07] MEDS: 0.9% Saline Lock 10 ML Syringe IV ×2 (09:43→22:22)
[2024-07-07] MEDS: Furosemide 40 MG/4 ML Vial IV (09:43)
[2024-07-07 11:39] LABS: Bedside Glucose 163 mg/dL (74-106)
[2024-07-07] MEDS: Umeclidinium Bromide Inhaler 1 PUFF INHALATION (11:42)
--- NOTE | 2024-07-07 11:46 | NURSING ---
AID CAME TO THIS NURSE AND STATED THAT PT SCRAPED HER LT UPPER THIGH ON TOILET PAPER AMARAL. THIS NURSE LOOKED AT PT AND SEEN IT STOPPED AND LOOKED LIKE A PUNCTURE. NO BLEEDING AT THIS TIME, APPLIED BANDAID. WILL CONTINUE MONITOR. RN AWARE.
[2024-07-07 15:31] LABS: Pathologist Review Reviewed
--- NOTE | 2024-07-07 16:10 | CASEMGMT ---
Social Work SW met with patient to complete initial assessment. Pt known to this worker from previous stay. Verified/updated contacts. SW requested pt have family provide copies of advance directives to place on file. SW educated to Medicare benefit and copay coverage. Pt repeatedly stated she wants to DC home, as she was on TCU 8 weeks last stay. SW acknowledged wish for DC as soon as possible, but noted pt just admitted, and is currently at x1-2 assist. 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 Pt perseverated on being home. SW provided supportive and assurance this worker will assist with DC when pt is ready. SW will continue to follow. Altagracia Roberto EDGER HAND LABORATORY ADMINISTRATIVE DIRECTOR
[2024-07-07 17:30] LABS: Bedside Glucose 182 mg/dL (74-106)
--- NOTE | 2024-07-07 19:46 | NURSING ---
Dr. Douglas updated via phone call on abdominal xray, impression: fecal retention in the colon consistent with constipation, updated on CXR, impression: pulmonary congestion and edema, pneumonia cannot be excluded. Dr. Douglas responded ok, thank you for the update, no new orders.
[2024-07-07 21:37] LABS: Bedside Glucose 189 mg/dL (74-106)
[2024-07-07] MEDS: Atorvastatin Calcium 80 MG Tablet PO (22:22)
[2024-07-08] MEDS: Menthol/Lanolin/Calamine/Znox 113 GM Tube 1 APPLIC TOPICAL ×3 (05:46→16:34)
[2024-07-08] MEDS: Levothyroxine 100 MCG Tablet 200 MCG PO (05:47)
[2024-07-08] MEDS: Levothyroxine 50 MCG Tablet PO (05:47)
[2024-07-08] MEDS: levoFLOXacin 250 MG Tablet PO (05:47)
[2024-07-08 06:59] LABS: Bedside Glucose 219 mg/dL (74-106)
[2024-07-08 09:00] VITALS: BP 122/76; PULSE 84; RESP 18; TEMP 36.2; O2SAT 98
[2024-07-08] MEDS: Potassium Chloride Oral Tablet 20 MEQ PO (09:05)
[2024-07-08] MEDS: Spironolactone 25 MG Tablet PO (09:07)
[2024-07-08] MEDS: dilTIAZem CD 240 MG Capsule PO (09:08)
[2024-07-08] MEDS: SACUBITRIL/VALSARTAN 49-51 MG TABLET 1 EACH PO (09:09)
[2024-07-08] MEDS: APIXABAN 2.5 MG TABLET (WCH) PO (09:09)
[2024-07-08] MEDS: Vibegron 75 MG TABLET PO (09:10)
[2024-07-08] MEDS: Umeclidinium Bromide Inhaler 1 PUFF INHALATION (09:10)
[2024-07-08] MEDS: Insulin Glargine-YFGN 100 UNIT/ML Pen 20 UNIT SC (09:11)
[2024-07-08 09:16] VITALS: BP 122/76; PULSE 84
[2024-07-08] MEDS: Metoprolol Tartrate 100 MG Tablet PO (09:16)
[2024-07-08] MEDS: Furosemide 40 MG Tablet PO (09:16)
[2024-07-08] MEDS: Senna/Docusate Sodium 1 Tablet 2 TABLET PO (09:17)
[2024-07-08] MEDS: Pantoprazole Sodium 40 MG Tablet PO (09:17)
[2024-07-08] MEDS: Cholecalciferol (VIT D3) 25 MCG TABLET (1,000 UNITS) PO (09:18)
[2024-07-08] MEDS: 0.9% Saline Lock 10 ML Syringe IV (09:24)
--- NOTE | 2024-07-08 09:32 | NURSING ---
THERAPY CAME TO THIS NURSE AND STATED PT HAD A SMALL SKIN TEAR TO HER LT UPPER ARM. THIS NURSE ASKED PT WHAT HAPPENED PT STATED SHE DONT KNOW AND DIDNT KNOW SHE HAD IT. CLEANED AREA AND APPLIED ADAPTIC AND DRY DRESSING TO AREA. RN AWARE
[2024-07-08 09:45] LABS: Anion Gap 11 (5-15); BUN 34 mg/dL (4-19); BUN/Creat Ratio 19.5 RATIO (10-20); Calcium,Total 9.3 mg/dL (7.6-11.0); Chloride 103 mmol/L (98-108); Creatinine, Serum 1.73 mg/dL (0.70-1.20); EST Glomerular Filtration Rate 29 (>60); Glucose 241 mg/dL (70-99); Potassium 5.6 mmol/L (3.3-5.1); Pro- Brain NATRIURETIC PEPTIDE 9922 pg/mL (<=1800); Sodium Level 138 mmol/L (133-145)
--- NOTE | 2024-07-08 10:06 | NURSING ---
Updated Dr. Douglas of potassium 5.6. He said he will place orders.
[2024-07-08] MEDS: Sodium Polystyrene Sulfonate 15 GM/60 ML UDC 30 GM PO (11:19)
--- NOTE | 2024-07-08 11:20 | NURSING ---
Shared Services And Outsourcing Manager Note; Activity Asset: Rik Nick has been on TCU in the past and remains independent in her choice of daily activities. She has her smartphone, books, magazines, was given a word puzzles along w/family and stem shaper visits. She welcomes visits from the therapy dog when available. Staff will encourage social activities, remind her of weekly activities and respect her right to say no.
[2024-07-08 11:40] VITALS: PULSE 84; RESP 20; O2SAT 98
[2024-07-08 11:42] LABS: Bedside Glucose 185 mg/dL (74-106)
[2024-07-08 15:00] VITALS: O2SAT 90
--- NOTE | 2024-07-08 15:10 | NURSING ---
THERAPY CAME TO THIS NURSE AND STATED THAT PT STATED THAT SHE DOES NOT WEAR 02 DURING THE DAY UNLESS SHE IS SOB. THIS NURSE IN TO TALK TO PT AND PT DID STATE THAT SHE ONLY USES 02 DURING DAY IF SHE GETS SOB BUT DOES WEAR 02 AT 4L AT NIGHT. OXYGEN 90% ON RA AT THIS TIME AND STATED TO PT THAT I WILL OXYGEN BY HER SIDE AND IF SHE NEEDS IT SHE COULD PUT IT ON OR CALL FOR STAFF TO HELP. PT AGREED. WILL CONTINUE TO MONITOR.
--- NOTE | 2024-07-08 16:11 | NURSING ---
PT HAD MED BM FROM THE [facility].
[2024-07-08 16:31] LABS: Bedside Glucose 227 mg/dL (74-106)
[2024-07-08 16:37] VITALS: PULSE 86; O2SAT 93
[2024-07-08 21:30] LABS: Bedside Glucose 234 mg/dL (74-106)
--- NOTE | 2024-07-09 00:57 | NURSING ---
Attempted to administer patient's medications at 2215, computers went into downtime at 2220. This nurse told patient her evening medications will be late until we get paper MARs. Patient stated, I don't want any of it anyway, don't come back. Whatever you have can wait until morning, I don't need it. This nurse educated patient on the importance of medication compliance. Patient was unwilling to discuss and stated she just wanted to go to bed. Patient requested a warm blanket. Warm blanket and water provided. Call light within reach, bed in low position. Patient denies additional needs at this time.
[2024-07-09] MEDS: Levothyroxine 100 MCG Tablet 200 MCG PO (06:07)
[2024-07-09] MEDS: levoFLOXacin 250 MG Tablet PO (06:07)
[2024-07-09] MEDS: Levothyroxine 50 MCG Tablet PO (06:07)
[2024-07-09] MEDS: Menthol/Lanolin/Calamine/Znox 113 GM Tube 1 APPLIC TOPICAL ×4 (06:09→22:16)
[2024-07-09 06:39] LABS: Bedside Glucose 185 mg/dL (74-106)
[2024-07-09 06:43] LABS: Anion Gap 10 (5-15); BUN 35 mg/dL (4-19); BUN/Creat Ratio 20.3 RATIO (10-20); Calcium,Total 8.8 mg/dL (7.6-11.0); Carbon Dioxide 25.8 mmol/L (21.0-32.0); Chloride 103 mmol/L (98-108); Creatinine, Serum 1.73 mg/dL (0.70-1.20); EST Glomerular Filtration Rate 29 (>60); Glucose 209 mg/dL (70-99); Potassium 4.4 mmol/L (3.3-5.1); Sodium Level 139 mmol/L (133-145)
[2024-07-09] MEDS: Umeclidinium Bromide Inhaler 1 PUFF INHALATION (08:10)
[2024-07-09] MEDS: Nystatin Powder 15gm Bottle 1 APPLIC TOPICAL ×2 (08:10→22:16)
[2024-07-09 08:11] VITALS: PULSE 104
[2024-07-09] MEDS: Vibegron 75 MG TABLET PO (08:11)
[2024-07-09] MEDS: Metoprolol Tartrate 100 MG Tablet PO ×2 (08:11→22:17)
[2024-07-09] MEDS: Cholecalciferol (VIT D3) 25 MCG TABLET (1,000 UNITS) PO (08:11)
[2024-07-09] MEDS: dilTIAZem CD 240 MG Capsule PO (08:11)
[2024-07-09] MEDS: APIXABAN 2.5 MG TABLET (WCH) PO ×2 (08:11→22:18)
[2024-07-09] MEDS: Insulin Glargine-YFGN 100 UNIT/ML Pen 20 UNIT SC ×2 (08:11→22:21)
[2024-07-09] MEDS: Pantoprazole Sodium 40 MG Tablet PO (08:11)
[2024-07-09] MEDS: SACUBITRIL/VALSARTAN 49-51 MG TABLET 1 EACH PO ×2 (08:11→22:20)
[2024-07-09] MEDS: Furosemide 40 MG Tablet PO (08:11)
[2024-07-09] MEDS: Spironolactone 25 MG Tablet PO (08:11)
[2024-07-09 09:49] VITALS: BP 145/83; PULSE 104; RESP 18; TEMP 36.2; O2SAT 96
[2024-07-09 11:42] LABS: Bedside Glucose 234 mg/dL (74-106)
[2024-07-09] MEDS: Acetaminophen 500 MG Tablet 1000 MG PO (12:54)
--- NOTE | 2024-07-09 16:07 | CASEMGMT ---
Social Work SW completed BIMS () and PHQ-9 (11/11) for MDS assessment. SW explored positive responses. Pt reports decline in mood since hospitalization d/t not being at home and loss of independence. SW provided verbal support and encouraged pt with recovery to return home. Altagracia Roberto GRINDER OUTSIDE DIAMETER STORE SALES CONSULTANT
[2024-07-09] MEDS: 0.9% Saline Lock 10 ML Syringe IV ×2 (16:30→22:15)
[2024-07-09 16:32] LABS: Bedside Glucose 261 mg/dL (74-106)
[2024-07-09 21:54] LABS: Bedside Glucose 248 mg/dL (74-106)
[2024-07-09 22:14] VITALS: BP 153/65; PULSE 90; O2SAT 96
[2024-07-09 22:17] VITALS: BP 153/65; PULSE 90
[2024-07-09] MEDS: Atorvastatin Calcium 80 MG Tablet PO (22:19)
[2024-07-09] MEDS: Senna/Docusate Sodium 1 Tablet 2 TABLET PO (22:19)
[2024-07-10] MEDS: Menthol/Lanolin/Calamine/Znox 113 GM Tube 1 APPLIC TOPICAL ×4 (05:35→21:21)
[2024-07-10] MEDS: Levothyroxine 100 MCG Tablet 200 MCG PO (05:35)
[2024-07-10] MEDS: Levothyroxine 50 MCG Tablet PO (05:35)
[2024-07-10 06:22] LABS: Bedside Glucose 244 mg/dL (74-106)
[2024-07-10 06:40] VITALS: PULSE 86; O2SAT 97
[2024-07-10] MEDS: Spironolactone 25 MG Tablet PO (09:53)
[2024-07-10] MEDS: dilTIAZem CD 240 MG Capsule PO (09:55)
[2024-07-10] MEDS: APIXABAN 2.5 MG TABLET (WCH) PO ×2 (09:56→21:25)
[2024-07-10] MEDS: Vibegron 75 MG TABLET PO (09:57)
[2024-07-10] MEDS: SACUBITRIL/VALSARTAN 49-51 MG TABLET 1 EACH PO ×2 (09:57→21:25)
[2024-07-10] MEDS: Insulin Glargine-YFGN 100 UNIT/ML Pen 25 UNIT SC ×2 (09:58→21:22)
[2024-07-10] MEDS: Umeclidinium Bromide Inhaler 1 PUFF INHALATION (09:58)
[2024-07-10 10:04] VITALS: BP 122/65; PULSE 91
[2024-07-10] MEDS: Metoprolol Tartrate 100 MG Tablet PO ×2 (10:04→21:25)
[2024-07-10] MEDS: Furosemide 40 MG Tablet PO (10:04)
[2024-07-10] MEDS: Nystatin Powder 15gm Bottle 1 APPLIC TOPICAL ×2 (10:05→21:21)
[2024-07-10] MEDS: Pantoprazole Sodium 40 MG Tablet PO (10:06)
[2024-07-10] MEDS: Senna/Docusate Sodium 1 Tablet 2 TABLET PO ×2 (10:06→21:26)
[2024-07-10] MEDS: Cholecalciferol (VIT D3) 25 MCG TABLET (1,000 UNITS) PO (10:07)
[2024-07-10 10:16] VITALS: BP 126/65; PULSE 91; RESP 18; TEMP 36.6; O2SAT 89
[2024-07-10 11:32] LABS: Bedside Glucose 239 mg/dL (74-106)
[2024-07-10] MEDS: 0.9% Saline Lock 10 ML Syringe IV ×2 (15:23→21:20)
[2024-07-10 16:18] LABS: Bedside Glucose 316 mg/dL (74-106)
[2024-07-10 21:14] VITALS: BP 147/63; PULSE 97; O2SAT 96
[2024-07-10 21:25] VITALS: BP 147/63; PULSE 97
[2024-07-10] MEDS: Atorvastatin Calcium 80 MG Tablet PO (21:25)
[2024-07-10 21:33] LABS: Bedside Glucose 346 mg/dL (74-106)
[2024-07-11] MEDS: Menthol/Lanolin/Calamine/Znox 113 GM Tube 1 APPLIC TOPICAL ×3 (05:42→21:04)
[2024-07-11] MEDS: Levothyroxine 100 MCG Tablet 200 MCG PO (05:43)
[2024-07-11] MEDS: Levothyroxine 50 MCG Tablet PO (05:43)
[2024-07-11 07:09] LABS: Bedside Glucose 197 mg/dL (74-106)
[2024-07-11] MEDS: dilTIAZem CD 240 MG Capsule PO (07:49)
[2024-07-11] MEDS: Spironolactone 25 MG Tablet PO (07:49)
[2024-07-11] MEDS: Vibegron 75 MG TABLET PO (07:49)
[2024-07-11] MEDS: APIXABAN 2.5 MG TABLET (WCH) PO ×2 (07:49→21:04)
[2024-07-11] MEDS: SACUBITRIL/VALSARTAN 49-51 MG TABLET 1 EACH PO ×2 (07:49→21:05)
[2024-07-11 07:50] VITALS: PULSE 81
[2024-07-11] MEDS: Metoprolol Tartrate 100 MG Tablet PO ×2 (07:50→21:05)
[2024-07-11] MEDS: Cholecalciferol (VIT D3) 25 MCG TABLET (1,000 UNITS) PO (07:50)
[2024-07-11] MEDS: Nystatin Powder 15gm Bottle 1 APPLIC TOPICAL ×2 (07:50→21:05)
[2024-07-11] MEDS: Pantoprazole Sodium 40 MG Tablet PO (07:50)
[2024-07-11] MEDS: Umeclidinium Bromide Inhaler 1 PUFF INHALATION (07:50)
[2024-07-11] MEDS: Furosemide 40 MG Tablet PO (07:50)
[2024-07-11] MEDS: Senna/Docusate Sodium 1 Tablet 2 TABLET PO (07:50)
[2024-07-11] MEDS: Insulin Glargine-YFGN 100 UNIT/ML Pen 25 UNIT SC ×2 (07:51→21:06)
[2024-07-11 09:09] VITALS: BP 108/40; PULSE 81; RESP 18; TEMP 36.3; O2SAT 97
[2024-07-11 11:55] LABS: Bedside Glucose 183 mg/dL (74-106)
[2024-07-11 16:36] LABS: Bedside Glucose 219 mg/dL (74-106)
[2024-07-11 21:05] VITALS: BP 131/67; PULSE 90
[2024-07-11] MEDS: Atorvastatin Calcium 80 MG Tablet PO (21:06)
[2024-07-11 22:07] LABS: Bedside Glucose 276 mg/dL (74-106)
[2024-07-12] MEDS: traMADol 50 MG Tablet PO (03:01)
[2024-07-12] MEDS: 0.9% Saline Lock 10 ML Syringe IV ×2 (03:03→13:59)
[2024-07-12] MEDS: Levothyroxine 50 MCG Tablet PO (05:21)
[2024-07-12] MEDS: Levothyroxine 100 MCG Tablet 200 MCG PO (05:21)
[2024-07-12 06:25] LABS: Bedside Glucose 234 mg/dL (74-106)
[2024-07-12 06:36] VITALS: O2SAT 94
[2024-07-12] MEDS: Insulin Glargine-YFGN 100 UNIT/ML Pen 25 UNIT SC ×2 (08:57→21:35)
[2024-07-12] MEDS: Nystatin Powder 15gm Bottle 1 APPLIC TOPICAL ×2 (09:01→21:38)
[2024-07-12] MEDS: Menthol/Lanolin/Calamine/Znox 113 GM Tube 1 APPLIC TOPICAL ×2 (09:01→21:41)
[2024-07-12] MEDS: Umeclidinium Bromide Inhaler 1 PUFF INHALATION (10:19)
[2024-07-12] MEDS: Spironolactone 25 MG Tablet PO (10:22)
[2024-07-12] MEDS: Vibegron 75 MG TABLET PO (10:23)
[2024-07-12] MEDS: APIXABAN 2.5 MG TABLET (WCH) PO ×2 (10:23→21:35)
[2024-07-12] MEDS: dilTIAZem CD 240 MG Capsule PO (10:23)
[2024-07-12] MEDS: SACUBITRIL/VALSARTAN 49-51 MG TABLET 1 EACH PO ×2 (10:23→21:35)
[2024-07-12 10:24] VITALS: BP 158/78; PULSE 97
[2024-07-12] MEDS: Metoprolol Tartrate 100 MG Tablet PO ×2 (10:24→21:35)
[2024-07-12] MEDS: Furosemide 40 MG Tablet PO (10:24)
[2024-07-12] MEDS: Pantoprazole Sodium 40 MG Tablet PO (10:25)
[2024-07-12] MEDS: Cholecalciferol (VIT D3) 25 MCG TABLET (1,000 UNITS) PO (10:25)
[2024-07-12 11:56] LABS: Bedside Glucose 262 mg/dL (74-106)
[2024-07-12] MEDS: Insulin Lispro 100 UNIT/ML INSULN.PEN SC ×2 (11:58→17:23)
[2024-07-12 12:45] VITALS: PULSE 90; RESP 18; O2SAT 92
[2024-07-12 17:23] LABS: Bedside Glucose 299 mg/dL (74-106)
--- NOTE | 2024-07-12 17:31 | NURSING ---
PT BLOOD SUGAR STILL RUNNING HIGH. PT NON COMPLIANT WITH DIET. SEEN FRIEND BRING IN FOOD FOR PT. ASKED PT WHAT SHE ATE. PT STATED A BIG BOWL OF PUDDING. ASKED PT WAS IT SUGAR FREE? PT STATED NO. DID VERBAL TEACHING WITH PT AND PT STATED SHE UNDER STOOD. RN AWARE
[2024-07-12 21:25] VITALS: BP 138/72; PULSE 80
[2024-07-12] MEDS: Senna/Docusate Sodium 1 Tablet 2 TABLET PO (21:34)
[2024-07-12 21:35] VITALS: BP 138/72; PULSE 80
[2024-07-12] MEDS: Atorvastatin Calcium 80 MG Tablet PO (21:35)
[2024-07-12 21:55] LABS: Bedside Glucose 243 mg/dL (74-106)
[2024-07-13] MEDS: Levothyroxine 50 MCG Tablet PO (06:08)
[2024-07-13] MEDS: Levothyroxine 100 MCG Tablet 200 MCG PO (06:08)
[2024-07-13 06:14] LABS: Bedside Glucose 154 mg/dL (74-106)
[2024-07-13] MEDS: Insulin Lispro 100 UNIT/ML INSULN.PEN SC ×3 (07:49→18:04)
[2024-07-13 07:50] VITALS: BP 153/76; PULSE 84; RESP 18; TEMP 36.7; O2SAT 96
[2024-07-13] MEDS: Umeclidinium Bromide Inhaler 1 PUFF INHALATION (07:53)
[2024-07-13] MEDS: Spironolactone 25 MG Tablet PO (07:57)
[2024-07-13] MEDS: Menthol/Lanolin/Calamine/Znox 113 GM Tube 1 APPLIC TOPICAL ×2 (07:57→22:11)
[2024-07-13] MEDS: dilTIAZem CD 240 MG Capsule PO (07:58)
[2024-07-13] MEDS: APIXABAN 2.5 MG TABLET (WCH) PO ×2 (07:59→22:12)
[2024-07-13] MEDS: Vibegron 75 MG TABLET PO (08:00)
[2024-07-13] MEDS: SACUBITRIL/VALSARTAN 49-51 MG TABLET 1 EACH PO ×2 (08:00→22:13)
[2024-07-13] MEDS: Furosemide 40 MG Tablet PO (08:01)
[2024-07-13 08:02] VITALS: BP 153/76; PULSE 84
[2024-07-13] MEDS: Nystatin Powder 15gm Bottle 1 APPLIC TOPICAL ×2 (08:02→22:11)
[2024-07-13] MEDS: Metoprolol Tartrate 100 MG Tablet PO ×2 (08:02→22:14)
[2024-07-13] MEDS: Pantoprazole Sodium 40 MG Tablet PO (08:04)
[2024-07-13] MEDS: Senna/Docusate Sodium 1 Tablet 2 TABLET PO ×2 (08:04→22:14)
[2024-07-13] MEDS: Cholecalciferol (VIT D3) 25 MCG TABLET (1,000 UNITS) PO (08:06)
--- NOTE | 2024-07-13 08:50 | NURSING ---
Public Health Aide Note; MDS for 07/13/2024 Complete
--- NOTE | 2024-07-13 09:54 | NURSING ---
Offered covid vaccine, VIS provided. Resident declines at this time.
[2024-07-13] MEDS: Insulin Glargine-YFGN 100 UNIT/ML Pen 25 UNIT SC ×2 (10:42→22:15)
[2024-07-13 11:28] LABS: Bedside Glucose 170 mg/dL (74-106)
--- NOTE | 2024-07-13 11:48 | CASEMGMT ---
Social Work Multiple staff members, including the Dr, notified this worker that pt is requesting to DC home. - JOSH reviewed PT note from this morning. Pt's LOC varies from CGA to ModA for STS tx, needing a rest break walking 140 ft, pt reporting she is fatigued. Pt completed 5 steps. Pt has 11 steps to basement laundry. JOSH reviewed OT note from 07/10, and pt was needing [place] for toileting, modA for LE and bathing. Pt lives home alone and IDT is recommending continued stay to further improve pt's functioning. - JOSH spoke with pt. Pt strongly voiced wish to DC home. JOSH noted the above levels and concerns with pt being alone and no assistance with those daily tasks, especially the steps. JOSH educated to the risk of falls/rehospitalization. Pt refuted that and repeated I will be fine. I can do it all by myself. SW inquired who could help her at home. Pt stated her sson, DIL, and friends can help her. JOSH offered DC 5/3 to finish the week of therapy. Pt very upset. SW offered to compromise to DC 07/16. Pt stated she wants to DC tomorrow. SW noted pt has the right to make her own decisions, but requested if this worker can contact her a family member to notify them on pt's LOC. Pt agreed for JOSH to call dtr. JOSH appreciative and will follow up with pt after conversation. - JOSH phoned dtr, who resides in [place]. JOSH explained LOF. Dtr stated the initial plan is for pt to be living in her basement that has all of her needs, including walk out entry to car. JOSH inquired initially, who could assist pt with transporting and getting her clothes to the basement. I'm sure someone can help get her set up with the clothes and a friend can drive her initially. Dtr stated, I'm not going to be the person to tell you she can't go home. She calls me all the time saying she wants out of there and she is going to do what she wants. Yes, I understand the risks and would like her to stay longer, but I'm not telling her that and I don't want you to either. JOSH expressed understanding and will notify the Dr to make the final decision. Dtr agreed. - JOSH left communication with Dr. Altagracia Roberto DATABASE TECHNICIAN CHECK AIRMAN
--- NOTE | 2024-07-13 14:22 | NURSING ---
DRESSINGS CHANGED TO RLE AND KALPESH PER DRESSING ORDERS. CHANGED DUE TO YELLOW DRAINAGE SEEPING THREW DRESSING ON RT LOWER LEG,FRONT AND BACK . AND SMALL AMOUNT OF BLOOD THREW DRESSING ON LT ARM.NO S/S OF INFECTION. PT TOLERATED WELL.
--- NOTE | 2024-07-13 15:24 | CASEMGMT ---
Social Work spoke with pt and pt agreeable to home with hospice on 07/14. - SW spoke with pt at bedside. Discussed hospice services. SW wanted to ensure pt understood services and aligned with pt's wishes. Pt was evasive and exhibited difficulty understanding the scope of hospice, not returning to the hospital. Pt kept repeating , I don't get the medical system. If I'm sick, aren't I supposed to come to the hospital to get help. SW attempted in multiple ways to explain hospice and medical care being provided in the home; dx supports 6 months or less to live. Pt kept repeating, I will do whatever that gets me home. SW explained pt does not need hospice to DC home, as this worker wants to ensure pt's wishes align with care being coordinated. Pt stated she had nurses coming to the home 3 times a week before and it worked just fine. Pt isn't sure through what agency, but assumed it was [facility]. SW explained hospice would not continue with therapy. Pt didn't care about therapy. I will do my exercises at home. SW explained since pt is okay with no therapy or ongoing medical treatment and Dr. Douglas is pt's PCP, to proceed with the hospice referral. Informed pt that hospice will meet with pt prior to DC and discuss services further and pt can elect services or not. Pt agreed. Pt states she has a friend already scheduled to pick her up for DC at 1400 tomorrow. SW agreed to coordinate DC in time. - SW to make referral to [facility]. IDT updated. Plan: DC home alone 07/14. [facility] Altagracia LEWIS METER READER CHIEF
--- NOTE | 2024-07-13 16:04 | CASEMGMT ---
Addendum entered by Kayleen Lopez 07/13/24 16:41: Social Work- SW received fax confirmation. SW called [facility] and spoke with Jasmina who reports that they are inputting information into their system and should be calling to schedule assessment within the next 30 minutes. TCU JOSH updated. SAIRA Reynoso Original Note: Social Work- SW completed referral to [facility] via fax. JOSH submitted documentation via fax. JOSH updated TCU JOSH. JOSH remains available to follow. SAIRA Reynoso
[2024-07-13 16:23] LABS: Bedside Glucose 163 mg/dL (74-106)
--- NOTE | 2024-07-13 19:52 | DS.PCM_ITS ---
Providers Date of Admission: 07/06/24 Primary Care Physician: Dr. Alexy Douglas MD Consultations 07/12/24 06:45 Consult: Onc/Wound/high voltage electrician Routine Comment: Reason for Consult:: Multiple wounds Comments:: RLE wound d/t cellulitis, Lt great toe wound noted 07/1107/13/24 15:42 Consult: Hospice / Palliative Care Routine Consulting Provider: [facility] Reason for Consult: HOSPICE: heart failure with preserved ejection fracture EMERGENT Consult: Yes MD Notified: Yes Date Notified: 07/13/24 Time Notified: 15:42 Method of Notification: Text Reason For Visit: SEPSIS, CELLULITIS, ILEUS, AFIB RVR, CHF EXACER Diagnosis Discharge Diagnosis (1) Debility: Status: Resolved Code(s): R53.81 - Other malaise (2) Encephalopathy acute: Status: Inactive Code(s): G93.40 - Encephalopathy, unspecified (3) Cellulitis of right leg: Status: Inactive Code(s): L03.115 - Cellulitis of right lower limb (4) Sepsis: Status: Inactive Code(s): A41.9 - Sepsis, unspecified organism (5) Bacteremia: Status: Inactive Code(s): R78.81 - Bacteremia (6) Ileus due to infection: Status: Inactive Code(s): K56.7 - Ileus, unspecified; B99.9 - Unspecified infectious disease (7) Acute on chronic diastolic (congestive) heart failure: Status: Inactive Code(s): I50.33 - Acute on chronic diastolic (congestive) heart failure (8) Atrial fibrillation with RVR: Status: Inactive Code(s): I48.91 - Unspecified atrial fibrillation (9) Tricuspid valve insufficiency: Status: Inactive Code(s): I07.1 - Rheumatic tricuspid insufficiency Qualifiers: Cardiac valve disease etiology: nonrheumatic Qualified Code(s): I36.1 - Nonrheumatic tricuspid (valve) insufficiency (10) COPD (chronic obstructive pulmonary disease): Status: Chronic Code(s): J44.9 - Chronic obstructive pulmonary disease, unspecified (11) Hyperlipidemia: Status: Acute Code(s): E78.5 - Hyperlipidemia, unspecified (12) Iron deficiency anemia: Status: Acute Code(s): D50.9 - Iron deficiency anemia, unspecified (13) Type 2 diabetes mellitus with hyperglycemia: Status: Acute Code(s): E11.65 - Type 2 diabetes mellitus with hyperglycemia (14) Chronic kidney disease, stage 3b: Status: Inactive Code(s): N18.32 - Chronic kidney disease, stage 3b (15) Hypothyroidism: Status: Acute Code(s): E03.9 - Hypothyroidism, unspecified Plan 84 year old female with below past medical history hospitalized for sepsis 2/2 cellulitis right lower extremity, bacteremia, complicated by encephalopathy, atrial fibrillation with RVR, acute on chronic HFpEF, acute kidney injury, admitted to TCU with debility, here for rehabilitation, strengthening, prior to discharge home alone. * Debility - PT/OT. * Pain - Tylenol 1000mg q6 prn pain (1-10). * Bowel - senna/colace 2 tablets bid latosha. * Adult immunization - Administer pneumonia vaccine, covid vaccine, flu vaccine as appropriate. * DVT prophylaxis - Eliquis. * COPD - Budesonide 0.5mg inhaled bid, Albuterol 2.5mg q2h prn. * Atrial fibrillation - Metoprolol 100mg bid, Diltiazem 240mg daily, Eliquis 2.5mg bid. * Hyperlipidemia - Atorvastatin 80g qhs. * Vitamin D deficiency - D3 25mcg daily. * Right lower extremity cellulitis/bacteremia - Levaquin 250mg daily thru 06/29/2024. * Hypothyroidism - Levothyroxine 250mcg daily. * GERD - Pantoprazole 40mg daily, Mylanta II 30mL q6 prn. * Skin irritation - Calmoseptine topical 4x/day. * Hypokalemia - KCL 20meq daily. * Chronic HFpEF - Metoprolol 100mg bid, Entresto 49/51mg bid, Aldactone 25mg daily, Furosemide 40mg iv x 1 dose, Chest X-ray. * Diabetes Mellitus II - Glargine 20 units bid. * OAB - Gemtesa 75mg daily. * Ileus - X-ray abdomen. Medications at Discharge Home Medications apixaban 2.5 mg tablet (Eliquis) 2.5 mg PO BID blood thinner 08/20/23 sacubitril 49 mg-valsartan 51 mg tablet (Entresto) 1 tab PO BID heart 10/21/23 rosuvastatin 40 mg tablet 40 mg PO QHS cholesterol 12/02/23 vibegron 75 mg tablet (Gemtesa) 75 mg PO DAILY follow up needed 04/01/24 potassium chloride 20 mEq tablet,extended release(part/cryst) 20 meq PO DAILY hypokalemia 04/05/24 metoprolol tartrate 100 mg tablet 100 mg PO BID heart 04/25/24 levothyroxine 200 mcg tablet 200 mcg PO DAILY thyroid 05/14/24 levothyroxine 50 mcg tablet 50 mcg PO DAILY THYROID 05/14/24 diltiazem HCl 240 mg capsule,extended release 24 hr 240 mg PO DAILY heart #90 caps 06/05/24 spironolactone 25 mg tablet 25 mg PO DAILY DIURETIC 06/30/24 pantoprazole 40 mg tablet,delayed release (Protonix) 40 mg PO DAILY GERD #1 TAB 07/06/24 sennosides 8.6 mg-docusate sodium 50 mg tablet (Stimulant Laxative Plus) 2 tab PO BID PRN PRN Constipation #0 tabs 07/06/24 acetaminophen 500 mg tablet 1,000 mg (2 x 500 mg) PO Q6H PRN PRN Pain Score 1-3 #0 tabs 07/13/24 furosemide 40 mg tablet 40 mg PO DAILY 30 days #30 tabs 07/13/24 insulin glargine-yfgn 100 unit/mL (3 mL) subcutaneous pen 25 unit (0.25 mL) subcut BID 30 days #15 mL 07/13/24 insulin lispro 100 unit/mL subcutaneous pen (Humalog KwikPen (U-100) Insulin) 5 unit (0.05 mL) subcut TIDAC 30 days #4.5 mL 07/13/24 Hospital Course Operations None Procedures None Summary of Care Provided Minutes Spent on Discharge: 35 Hospital Course: 84 year old female with below past medical history hospitalized for sepsis 2/2 cellulitis right lower extremity, bacteremia, complicated by encephalopathy, atrial fibrillation with RVR, acute on chronic HFpEF, acute kidney injury, admitted to TCU with debility, here for rehabilitation, strengthening, prior to discharge home alone. Resident requested discharge home. IDT does not feel she is ready, she has 12 steps at home, currently unable. Resident is dying. Discharge home alone with [facility]. She has friends who support her. Physical Exam Const alert General Appearance: cooperative HEENT normocephalic Eyes PERRL and EOMs intact bilaterally Neck supple, no JVD and no carotid bruits Resp normal respiratory effort, normal air movement and clear to auscultation bilaterally Cardio regular rate and regular rhythm GI normal to inspection, nondistended, normoactive bowel sounds, non-tender and non-distended Extremity normal capillary refill General Extremity: edema bilateral (1+) Skin no rashes or lesions noted General Skin Exam: no breakdown Psych affect normal Appearance: appropriate Weight / BMI Weight Weight: 122.651 kg Body Mass Index (BMI) 41.1 ABG / Lab / Microbiology Data 07/07/24 07:24 07/09/24 05:10 Laboratory: Laboratory Results - last 24 hr 07/12/24 21:27: POC Glucose 243 H 07/13/24 05:54: POC Glucose 154 H 07/13/24 11:09: POC Glucose 170 H 07/13/24 16:06: POC Glucose 163 H D/C Instructions Discharge Diet: No restrictions Discharge Activity: Return to Normal Activity, May Shower and Use Walker Weight Bearing Status: Weight bearing as tolerated Call your doctor if you observe: Fever of 101 or Higher, Inability to urinate, Inability to have a bowel movement, Shortness of breath, Dizziness, Fainting spells, Swelling in the ankles, Chest pain and Uncontrolled pain DC O2, CPAP, BIPAP Needs Home O2 Discharge instructions: No Additional Instructions: Discharge home alone with [facility]. She has friends who support her. Meaningful Use Info Meaningful Use Meaningful Use Diagnoses (Choose all that apply): None applicable Ischemic Stroke Statin Dosing Therapy Reference: STATIN DOSE THERAPY REFERENCE: * Patients > 75 years receive moderate or high dose statin therapy. * Patients 75 years or YOUNGER should receive HIGH intensity statin dose unless contraindicated. You will be required to document reason for non-treatment if statin daily dose does not meet guidelines. HIGH DOSE STATIN THERAPY DAILY Atorvastatin > than or = to 40 mg Rosuvastatin > than or = to 20 mg Amlodipine + Atorvastatin > than or = to 2.5/40 mg Ezetimibe + Simvastatin 10/80 mg Simvastatin 80mg Discharge Plan Admission Admit Date/Time: 07/06/24 19:11 Primary Reason for Your Visit: Debility. Attending Provider: Alexy Douglas Chi Primary Care Provider: Alexy Douglas Chi Consulting Providers: Martin Schmitz; Grace Valle; Viry Reveles; Trinity Fitch; Mar Ramirez TOY PACKER; Nona Barrios Instructions Additional Instructions / Restrictions: Discharge home alone with [facility]. She has friends who support her. Discharge Orders/Prescriptions Prescriptions: New furosemide 40 mg Tablet 40 mg PO DAILY 30 Days Qty: 30 0RF acetaminophen 500 mg Tablet 1,000 mg PO Q6H PRN PRN (Reason: Pain Score 1-3) Qty: 0 0RF insulin glargine-yfgn 100 unit/mL (3 mL) Insulin Pen 25 unit subcut BID 30 Days Qty: 15 0RF insulin lispro [Humalog KwikPen Insulin] 100 unit/mL Insulin Pen 5 unit subcut TIDAC 30 Days Qty: 4.5 0RF Continued Gemtesa 75 mg tablet 75 mg PO DAILY levothyroxine 50 mcg tablet 50 mcg PO DAILY Rx Instructions: Take with 200 mcg tab to = 250 mcg daily rosuvastatin 40 mg tablet 40 mg PO QHS levothyroxine 200 mcg tablet 200 mcg PO DAILY Rx Instructions: Take with 50 mcg tab to = 250 mcg daily potassium chloride 20 mEq tablet,ER particles/crystals 20 meq PO DAILY metoprolol tartrate 100 mg tablet 100 mg PO BID Eliquis 2.5 mg tablet 2.5 mg PO BID spironolactone 25 mg tablet 25 mg PO DAILY sennosides-docusate sodium [Stimulant Laxative Plus] 8.6-50 mg Tablet 2 tab PO BID PRN PRN (Reason: Constipation) Qty: 0 0RF pantoprazole [Protonix] 40 mg tablet,delayed release (DR/EC) 40 mg PO DAILY Qty: 1 0RF diltiazem HCl 240 mg capsule,extended release 24hr 240 mg PO DAILY Qty: 90 3RF Discontinued cholecalciferol (vitamin D3) [Vitamin D3] 25 mcg (1,000 unit) capsule 25 mcg PO DAILY insulin degludec [Tresiba FlexTouch U-100] 100 unit/mL (3 mL) insulin pen 20 unit subcut BID acetaminophen 325 mg Tablet 650 mg PO Q4H PRN PRN (Reason: Fever, pain 1-1010) Qty: 0 0RF albuterol sulfate 2.5 mg /3 mL (0.083 %) Solution For Nebulization 2.5 mg inhalation Q2H PRN PRN (Reason: Dyspnea, wheezing) Qty: 0 0RF levofloxacin 250 mg Tablet 250 mg PO DAILY@0600 Qty: 3 0RF Rx Instructions: Continue for 3 days starting 07/07/2024 then discontinue budesonide 0.5 mg/2 mL Suspension For Nebulization 0.5 mg inhalation BID.RT Qty: 0 0RF alum-mag hydroxide-simeth [Mag-Al Plus Extra Strength] 400-400-40 mg/5 mL Suspension 30 ml PO Q6H PRN PRN (Reason: Gastric Burning) Qty: 0 0RF menthol-zinc oxide [Calmoseptine] 0.44-20.6 % Ointment 1 applic topical 4X/DAY Qty: 0 0RF Protocol: *Topical Application Instructions APPLICATION INSTRUCTIONS: apply to affected region No Action sacubitril-valsartan [Entresto] 49-51 mg tablet 1 tab PO BID Referrals / Follow Up: Alexy Douglas Chi, MD [Primary Care Provider] - Disposition Disposition (needs filled in before D/C Order can be placed): Hospice in Home
[2024-07-13 20:00] VITALS: PULSE 90; O2SAT 93
[2024-07-13 21:36] LABS: Bedside Glucose 156 mg/dL (74-106)
[2024-07-13 22:06] VITALS: BP 107/74; PULSE 90; O2SAT 96
[2024-07-13] MEDS: Atorvastatin Calcium 80 MG Tablet PO (22:13)
[2024-07-13 22:14] VITALS: BP 107/74; PULSE 90
[2024-07-14] MEDS: Levothyroxine 100 MCG Tablet 200 MCG PO (05:46)
[2024-07-14] MEDS: Levothyroxine 50 MCG Tablet PO (05:46)
[2024-07-14 06:02] LABS: Absolute Lymphocyte Count 1.17 X10^3/uL (0.83-4.51); Absolute Neutrophil Count 8.8 X10^3/uL (2.0-7.7); Basophil# 0.04 X10^3/uL; Basophil% 0.4 % (0-1); Eosinophil# 0.18 X10^3/uL; Eosinophils% 1.6 % (0-5); Hemoglobin 9.4 g/dL (12.0-15.0); Lymphocyte # 1.17 X10^3/ul (0.83-4.51); Lymphocyte % 10.5 % (19-41); Mean Corp Hgb Conc 31.3 g/dL (32-36); Mean Corpuscular Hgb 28.7 pg (27.0-32.0); Mean Corpuscular Volume 91.5 fL (81-99); Mean Platelet Vol. 9.5 fl (6.2-12.0); Monocyte# 0.72 X10^3/uL; Monocyte% 6.4 % (0-10); NRBC Flagged by Analyzer 0 % (0-5); Neutrophil # 8.84 X10^3/uL (2.7-7.7); Platelet Count 322 K/mm3 (150-450); RBC Distribution Width CV 15.3 % (11.6-14.6); RBC Distribution Width SD 50.8 fl (35.1-43.9); Red Blood Count 3.28 M/mm3 (4.2-5.4); White Blood Count 11.2 K/mm3 (4.4-11.0)
[2024-07-14 06:10] LABS: Bedside Glucose 105 mg/dL (74-106)
[2024-07-14 06:20] LABS: Anion Gap 11 (5-15); BUN 34 mg/dL (4-19); BUN/Creat Ratio 21.3 RATIO (10-20); Calcium,Total 9.1 mg/dL (7.6-11.0); Chloride 105 mmol/L (98-108); Creatinine, Serum 1.57 mg/dL (0.70-1.20); EST Glomerular Filtration Rate 32 (>60); Estimated Creatinine Clearance 36.15 ml/min (50-250); Glucose 121 mg/dL (70-99); Potassium 4.5 mmol/L (3.3-5.1); Sodium Level 142 mmol/L (133-145)
[2024-07-14 06:37] VITALS: PULSE 88; O2SAT 96
[2024-07-14 08:11] VITALS: BP 133/65; PULSE 82; RESP 17; TEMP 36.2; O2SAT 96
[2024-07-14] MEDS: Insulin Lispro 100 UNIT/ML INSULN.PEN SC ×2 (08:12→12:04)
[2024-07-14] MEDS: Spironolactone 25 MG Tablet PO (08:14)
[2024-07-14] MEDS: dilTIAZem CD 240 MG Capsule PO (08:14)
[2024-07-14] MEDS: Menthol/Lanolin/Calamine/Znox 113 GM Tube 1 APPLIC TOPICAL (08:14)
[2024-07-14] MEDS: Insulin Glargine-YFGN 100 UNIT/ML Pen 25 UNIT SC (08:15)
[2024-07-14] MEDS: Umeclidinium Bromide Inhaler 1 PUFF INHALATION (08:15)
[2024-07-14] MEDS: APIXABAN 2.5 MG TABLET (WCH) PO (08:15)
[2024-07-14] MEDS: Vibegron 75 MG TABLET PO (08:15)
[2024-07-14] MEDS: Furosemide 40 MG Tablet PO (08:15)
[2024-07-14] MEDS: SACUBITRIL/VALSARTAN 49-51 MG TABLET 1 EACH PO (08:15)
[2024-07-14 08:16] VITALS: PULSE 82
[2024-07-14] MEDS: Pantoprazole Sodium 40 MG Tablet PO (08:16)
[2024-07-14] MEDS: Cholecalciferol (VIT D3) 25 MCG TABLET (1,000 UNITS) PO (08:16)
[2024-07-14] MEDS: Metoprolol Tartrate 100 MG Tablet PO (08:16)
[2024-07-14] MEDS: Nystatin Powder 15gm Bottle 1 APPLIC TOPICAL (08:16)
[2024-07-14] MEDS: Senna/Docusate Sodium 1 Tablet 2 TABLET PO (08:17)
--- NOTE | 2024-07-14 09:08 | CASEMGMT ---
Social Work SW received VM from [facility] that a nurse is meeting with pt and family in room this date at approximately 0930. Altagracia Roberto PHYSICIAN INTERNIST CHURN TENDER
[2024-07-14 11:12] VITALS: BP 141/79; PULSE 73; RESP 18; TEMP 36.6; O2SAT 96
[2024-07-14 11:50] LABS: Bedside Glucose 154 mg/dL (74-106)
--- NOTE | 2024-07-16 14:01 | MDS.RN ---
Information for the MDS was obtained from review of the clinical record, interview of resident, staff, and direct observation of resident?s care.
== END 2024-07-14 14:38 | disposition hospice, home (50) | DRG 602 ==
PROVIDERS: Admitting Provider Family Medicine Geriatric Medicine; PCP Family Medicine Geriatric Medicine; Visit Provider Family Medicine Geriatric Medicine
DX: L03.115 Cellulitis of right lower limb (principal); I50.33 Acute on chronic diastolic (congestive) heart failure; K56.7 Ileus, unspecified; I13.0 Hypertensive heart and chronic kidney disease with heart failure and stage 1 through stage 4 chronic kidney disease, or unspecified chronic kidney disease; I48.11 Longstanding persistent atrial fibrillation; I27.21 Secondary pulmonary arterial hypertension; E11.22 Type 2 diabetes mellitus with diabetic chronic kidney disease; D50.9 Iron deficiency anemia, unspecified; E03.9 Hypothyroidism, unspecified; E11.65 Type 2 diabetes mellitus with hyperglycemia; N18.32 Chronic kidney disease, stage 3b; J44.89 Other specified chronic obstructive pulmonary disease; M06.9 Rheumatoid arthritis, unspecified; E87.6 Hypokalemia; E78.00 Pure hypercholesterolemia, unspecified; E55.9 Vitamin D deficiency, unspecified; K21.9 Gastro-esophageal reflux disease without esophagitis; Z79.4 Long term (current) use of insulin; Z79.51 Long term (current) use of inhaled steroids; Z79.890 Hormone replacement therapy; N32.81 Overactive bladder; Z87.891 Personal history of nicotine dependence; Z99.81 Dependence on supplemental oxygen; Z79.899 Other long term (current) drug therapy
CPT/HCPCS: 36415; 71046; 74018; 80048; 82962; 83880; 85025; 94640; 97110; 97116; 97162; 97166; 97530; 97535; 97802; A4216; J1940

== ENCOUNTER → 2024-07-08 | Outpatient (CLI) | payer MEDICARE, OTHER, SELFPAY ==
--- NOTE | 2024-07-08 08:40 | VDLE_ITS ---
Reason For Study Reason For Study: Right leg pain RIGHT LEFT GSV is normal. CFV is compressible, spontaneous, phasic, competent, CFV is compressible, spontaneous, phasic, competent and demonstrates normal augmentation. and demonstrates normal augmentation. FV is compressible, spontaneous, phasic, competent and demonstrates normal augmentation. POP V is compressible, spontaneous, phasic, competent and demonstrates normal augmentation. T/P Trunk is compressible. PTV is compressible. RT PerV is compressible. Procedure This is a venous duplex using B-mode, color flow and spectral Doppler. Exam performed portable in patient room. PTV prox and distal, and PeroV prox visualized only due to bandages w/ open wound. A preliminary report was called and/or faxed to TCU RN. VL/Venous Duplex US, Unilateral Interpretation Summary Deep veins of the right lower extremity are patent and compressible segmentally . There is no evidence of right lower extremity deep vein thrombosis. Valvular competence appears intact within the p roximal deep venous system on the right . The right great saphenous vein appears patent and compressible segmentally. The left common femoral vein is patent and compressible . Portions of the deep veins in the right calf were not visualized due to the presence of bandages and an open wound. Ordering Physician: Alexy Douglas Chi Referring Physician: Alexy Douglas Chi Performed By: Maria Esther Marte RVT
== END | disposition home or self-care (01) ==
PROVIDERS: PCP Family Medicine Geriatric Medicine; Referring Provider Family Medicine Geriatric Medicine; Visit Provider Family Medicine Geriatric Medicine
DX: M79.661 Pain in right lower leg (principal)
CPT/HCPCS: 93971

== ENCOUNTER → 2024-08-11 | Outpatient (CLI) | payer MEDICARE, OTHER, SELFPAY ==
[2024-08-11 13:39] LABS: Anion Gap 12 (5-15); BUN 33 mg/dL (4-19); BUN/Creat Ratio 14.8 RATIO (10-20); Calcium,Total 9.5 mg/dL (7.6-11.0); Carbon Dioxide 25.8 mmol/L (21.0-32.0); Chloride 96 mmol/L (98-108); Creatinine, Serum 2.21 mg/dL (0.70-1.20); EST Glomerular Filtration Rate 21 (>60); Glucose 414 mg/dL (70-99); Potassium 4.8 mmol/L (3.3-5.1); Sodium Level 134 mmol/L (133-145)
== END | disposition home or self-care (01) ==
LOC: LABSPEC 12:42
PROVIDERS: PCP Family Medicine Geriatric Medicine; Referring Provider Emergency Medicine; Visit Provider Emergency Medicine
DX: E11.9 Type 2 diabetes mellitus without complications (principal)
CPT/HCPCS: 80048

== ENCOUNTER 2024-12-18 17:57 | Emergency (ER) | payer MEDICARE, OTHER, SELFPAY ==
[2024-12-18] VITALS (7 sets, daily range): BP systolic 157–192; BP diastolic 91–125; PULSE 115–130; RESP 18–24; TEMP 36.4–36.6; O2SAT 94–100; BMI 39.0
--- OUTSIDE RECORDS SUMMARY | 2024-12-18 18:43 | XMS RPT_ITS | CCD ---
Author Organization [facility] Care Team Providers Care Account Executive [employer] Name Role Phone Aj Baptiste Unavailable Unavailable Vijaya Arshad Unavailable Unavailable Pat Pa Unavailable Unavailable Vance SAUCEDO, Chad Aden Unavailable Vijaya Arshad Unavailable Unavailable FLETCHER Rehman, Natalie Carvajal Unavailable Unavailabl Rina Vogt Unavailable Unavailable Rina Patel Unavailable Unavailable Aj Baptiste Unavailable Unavailable Aj Baptiste Unavailable Unavailable Pat Pa Unavailable Unavailable Cristin BYNUM, Mariam Carlin Unavailable Unavailable Vijaya Arshad Unavailable Unavailable John Passica L Unavailable Unavailable Dr. Alexy Douglas Chi Primary Care Provider Misael, Dr. Alexy Sweet Referring Provider REGINE Arteaga Attending Provider Dr. Bebeto Rodriguez Attending Provider ASHLEY Jackson Attending Provider Dr. Alexy Douglas Chi Primary Care Provider Dr. Alexy Douglas Chi Referring Provider Dr. Bebeto Rodriguez Attending Provider REGINE Arteaga Attending Provider WILDER Linda NP Attending Provider Dr. Alexy Douglas Chi Primary Care Provider Misael, Dr. Alexy Sweet Referring Provider Dr. Roosevelt Tesfaye Attending Provider Dr. Alexy Douglas Chi Primary Care Provider Misael, Dr. Alexy Sweet Referring Provider Dr. Amanda Yan Emergency Provider Dr. Ephraim Oneil Admit Provider Dr. Ephraim Oneil Attending Provider Thad, Dr. Ephraim Anaya Other Provider Dr. Martin Davies Attending Provider Unavailable Samson, Dr. Salazar Other Provider Unavailable Kehinde, Dr. Carter Attending Provider Kehinde, Dr. Carter Other Provider Mera, Dr. Albert Other Provider Misael, Dr. Alexy Sweet Admit Provider Misael, Dr. Alexy Sweet Other Provider Sementi, Dr. Silvana Weems Attending Provider Misael, Dr. Alexy Sweet Primary Care Provider Mera, Dr. Albert Attending Provider Dr. Amanda Yan Emergency Provider Thad, Dr. Ephraim Anaya Admit Provider Dr. Ephraim Oneil Attending Provider Thad, Dr. Ephraim Anaya Other Provider Dr. Martin Davies Attending Provider Unavailable Samson, Dr. Salazar Other Provider Unavailable Kehinde, Dr. Carter Attending Provider Kehinde, Dr. Carter Other Provider Mera, Dr. Albert Other Provider Misael, Dr. Alexy Sweet Admit Provider Misael, Dr. Alexy Sweet Other Provider Semensaundra, Dr. Silvana Weems Attending Provider Misael, Dr. Alexy Sweet Referring Provider Alexei REGULATORY AFFAIRS ASSISTANT, WILDER Murry Attending Provider Misael, Dr. Alexy Sweet Primary Care Provider Misael, Dr. Alexy Sweet Primary Care Provider Misael, Dr. Alexy Sweet Referring Provider Alexei REGULATORY AFFAIRS ASSISTANT, REGULATORY AFFAIRS ASSISTANT-C Lovely Attending Provider ASHLEY Jackson Attending Provider ASHLEY Jackson Other Provider Dr. Roosevelt Tesfaye Attending Provider [phone] Roosevelt Tesfaye Referring Provider [phone] Misael, Dr. Alexy Sweet Primary Care Provider Misael, Dr. Alexy Sweet Referring Provider ASHLEY Jackson Attending Provider ASHLEY Jackson Other Provider [phone] Dr. Roosevelt Tesfaye Attending Provider [phone] Roosevelt Tesfaye Referring Provider [phone] Misael, Dr. Alexy Sweet Primary Care Provider Misael, Dr. Alexy Sweet Referring Provider ASHLEY Jackson Attending Provider Misael, Dr. Alexy Sweet Primary Care Provider Misael, Dr. Alexy Sweet Referring Provider ASHLEY Jackson Attending Provider Misael, Dr. Alexy Sweet Primary Care Provider Misael, Dr. Alexy Sweet Referring Provider ASHLEY Jackson Attending Provider MD Daniel Briscoe Emergency Provider Dr. Amaury Pena Admit Provider [phone] Amaury Pena Attending Provider Dr. Amaury Pena Other Provider Dr. Christina Menard Other Provider Dr. Bradley Morel Other Provider Dr. Edgardo Greenwood Attending Provider Dr. Edgardo Greenwood Other Provider Dr. Tobin Medel Other Provider Unavailable Dr. Ricky Clayton Other Provider Unavailab ganesh Galan REGULATORY AFFAIRS ASSISTANT, REGULATORY AFFAIRS ASSISTANT-C Bessy Other Provider LEWIS Szymanski-Murali Carlin Attending Provider Dr. Roosevelt Tesfaye Attending Provider Dr. Roosevelt Tesfaye Referring Provider Dr. Christina Menard Attending Provider Dr. Alexy Douglas Chi Primary Care Provider Dr. Alexy Douglas Chi Referring Provider Xiao RAMIREZ, PA Mitali Carvajal Attending Provider MD Daniel Briscoe Emergency Provider [phone] Dr. Amaury Pena Admit Provider Dr. Amaury Pena Attending Provider Dr. Amaury Pena Other Provider Dr. Christina Menard Referring Provider Dr. Christina Menard Other Provider Dr. Bradley Morel Other Provider Dr. Edgardo Greenwood Attending Provider Dr. Edgardo Greenwood Other Provider Dr. Tobin Medel Other Provider Unavailable Dr. Ricky Clayton Other Provider Unavailab ganesh Galan REGULATORY AFFAIRS ASSISTANT, REGULATORY AFFAIRS ASSISTANT-C Bessy Other Provider WILDER Szymanski Attending Provider Dr. Roosevelt Tesfaye Attending Provider Dr. Roosevelt Tesfaye Referring Provider Dr. Christina Menard Attending Provider Misael, Dr. Alexy Sweet Other Provider Misael, Dr. lAexy Sweet Primary Care Provider Misael, Dr. Alexy Sweet Referring Provider ASHLEY Jackson Attending Provider ASHLEY Jackson Other Provider Misael, Dr. Alexy Sweet Primary Care Provider MD Daniel Briscoe Emergency Provider Jean, Dr. Rebolledo Admit Provider Dr. Amaury Pena Attending Provider Dr. Amaury Pena Other Provider Dr. Christina Menard Referring Provider Dr. Christina Menard Other Provider Dr. Bradley Morel Other Provider Dr. Edgardo Greenwood Attending Provider Dr. Edgardo Greenwood Other Provider Dr. Tobin Medel Other Provider Unavailable Dr. Ricky Clayton Other Provider Unavailab ganesh Galan REGULATORY AFFAIRS ASSISTANT, REGULATORY AFFAIRS ASSISTANT-C Bessy Other Provider LEWIS Szymanski-Murali Carlin Attending Provider Dr. Roosevelt Tesfaye Attending Provider Dr. Roosevelt Tesfaye Referring Provider Dr. Christina Menard Attending Provider Misael, Dr. Alexy Sweet Referring Provider Misael, Dr. Alexy Sweet Other Provider ASHLEY Jackson Attending Provider ASHLEY Jackson Other Provider Angelia REGULATORY AFFAIRS ASSISTANT, REGULATORY AFFAIRS ASSISTANT-C Bessy Attending Provider [phone] Dr. Alexy Douglas Chi Primary Care Provider Dr. Alexy Douglas Chi Referring Provider Misael, Dr. Alexy Sweet Other Provider WILDER Szymanski Attending Provider Xiao RAMIREZ, PA Mitali Carvajal Attending Provider Xiao RAMIREZ, PA Mitali Carvajal Other Provider Dr. Edgardo Greenwood Attending Provider Dr. Edgardo Greenwood Other Provider Dr. Roosevelt Tesfaye Attending Provider Angelia REGULATORY AFFAIRS ASSISTANT, REGULATORY AFFAIRS ASSISTANT-C Bessy Attending Provider Angelia REGULATORY AFFAIRS ASSISTANT, REGULATORY AFFAIRS ASSISTANT-C Bessy Referring Provider [phone] Angelia REGULATORY AFFAIRS ASSISTANT, REGULATORY AFFAIRS ASSISTANT-C Bessy Other Provider MISAEL SELF, DR BARAHONA Primary Care Physician Misael, Dr. Alexy Sweet Primary Care Provider Dr. Alexy Douglas Chi Referring Provider Misael, Dr. Alexy Sweet Other Provider WILDER Szymanski Attending Provider ANA SELF, LIAT Ellis Attending Tina DOUGLAS MD, DR BARAHONA Primary Care Unavailable LIAT GARDINER MD Attending Tina DOUGLAS MD, DR BARAHONA Primary Care Unavailable LIAT GARDINER MD Admitting UnavailJOSE RAMON Shi DO Consulting Unavailable FABIO REYNOSO MD Consulting Unavailable HOSPITALISTDARRYN Consulting Unavailable NAY SELF, DR DOOLEY Consulting Unavailab ganesh GARZA MD, JOSE Carvajal Consulting Unavailable KIRA SELF, FELICIANO Muñoz Consulting Unavailcatarina ALEXIS MD, MELANIA Consulting Unavailable ROBERTA SELF, DR GARDINER Consulting Unavailab ganesh SALCEDO MD, NIGEL Richey Consulting Unavailable MILIND SELF, SOURAV Consulting Unavailable DARLENE SELF, TUAN Consulting Polly Douglas MD, Dr. Alexy Sweet Primary Care Provider Dr. Javier Sanchez DO Emergency Provider Shannan PIMENTEL, Dr. Drake Admit Provider Shannan PIMENTEL, Dr. Drake Other Provider Jean PIMENTEL, Dr. Rebolledo Attending Provider Shannan DO, Dr. Drake Attending Provider Jean PIMENTEL, Dr. Rebolledo Other Provider Misael SELF, Dr. Alexy Sweet Attending Provider Misael SELF, Dr. Alexy Sweet Referring Provider Angelia REGULATORY AFFAIRS ASSISTANT-C, Bessy Attending Provider Edwar SELF, Dr. Zapata Emergency Provider Kehinde SELF, Dr. Carter Admit Provider Kehinde SELF, Dr. Carter Attending Provider Kehinde SELF, Dr. Carter Other Provider Angelia REGULATORY AFFAIRS ASSISTANT-C, Bessy Referring Provider Daniel Briscoe MD Emergency Provider Elias SELF, Dr. Liz Muro Admit Provider Elias SELF, Dr. Liz Muro Other Provider Thad SELF, Dr. Ephraim Anaya Attending Provider Samson SELF, Dr. Salazar Other Provider Unavailable Kira SELF, Dr. Cullen Attending Provider Dr. Farrah Malone MD Referring Provider Dr. Martin Davies MD Attending Provider Unavaila [facility] Thad SELF, Dr. Ephraim Anaya Other Provider Vance REGULATORY AFFAIRS ASSISTANT-CChad Attending Provider Vance REGULATORY AFFAIRS ASSISTANT-Chad Carrion Referring Provider Alexei REGULATORY AFFAIRS ASSISTANT-CLovely Attending Provider [phone] Mera SELF, Dr. Albert Attending Provider [phone] Mera SELF, Dr. Albert Referring Provider [phone] Mehrdad SELF, Dr. Joshua Emergency Provider Elias SELF, Dr. Liz Muro Attending Provider Misael SELF, Dr. Alexy Sweet Primary Care Provider [phone] Kira SELF, Dr. Cullen Other Provider Sakina SELF, Dr. Nato Carlin Other Provider [phone] Mak SELF, Dr. Tate Other Provider [phone] Anjel PIMENTEL, Dr. Barboza Attending Provider Shaggy SELF, Dr. Oksana Zayas Other Provider [phone] Dora SELF, Dr. Ford Other Provider Kaylie SELF, Dr. Wilkerson Other Provider Adriel SELF, Dr. Huerta Other Provider Timo PIMENTEL, Dr. Reynoso Attending Provider [phone] iTmo PIMENTEL, Dr. Reynoso Other Provider Jacki SELF, Dr. Martin Barnes Other Provider [phone] Kev SELF, Dr. Bowser Other Provider Ara SELF, Dr. Castillo Other Provider Antonette SELF, Dr. Miller Other Provider Dinora SELF, Dr. Emery Other Provider [phone] Tyler SELF, Dr. Billings Other Provider Benito SELF, Dr. Casarez Other Provider Won SELF, Dr. Boone Other Provider Lizy SELF, Dr. Rudd Other [facility] Perea MD, Dr. Tucker Other Provider Silvia SELF, Dr. Do Other Provider Mojgan SELF, Dr. Collins Other Provider Sejal SELF, Dr. Cruz Other Provider [phone] Marc Mancuso DO Other Provider Marilyn SELF, Dr. Irving Other Provider [phone] Abraham SELF, Dr. Sousa Other Provider [phone] Dr. Nixon Kahn DO Other Provider Marc SELF, Dr. Ojeda Other Provider [phone] Joshua SELF, Dr. Lion Other Provider Shaggy SELF, Dr. Oksana Zayas Referring Provider Gage SELF, Dr. Drake Attending Provider Sakina SELF, Dr. Nato Carlin Attending Provider Anjel PIMENTEL, Dr. Barboza Referring Provider Shaggy SELF, Dr. Oksana Zayas Attending Provider Jennifer RAMIREZ-C, Ana María Attending Provider Boyd SELF, Dr. Gaytan Attending Provider Anjel PIMENTEL, Dr. Barboza Other Provider Misael SELF, Dr. Alexy Sweet Admit Provider Nadir PIMENTEL, Dr. Martin Muñoz Other Provider Leonard SELF, Dr. Edwards Other Provider Anushka SELF, Dr. Baires Other Provider [phone] Little REGULATORY AFFAIRS ASSISTANT-C, Trinity Other Provider Unavailabl e James REGULATORY AFFAIRS ASSISTANT-C, Mar Other Provider [phone] Andrzeji PAAngelitoNona Other Provider Misael SELF, Dr. Alexy Sweet Primary Care Provider Angelia REGULATORY AFFAIRS ASSISTANT-C, Bessy Attending Provider Misael SELF, Dr. Alexy Sweet Attending Provider Misael SELF, Dr. Alexy Sweet Referring Provider Jennifer RAMIREZ-C, Ana María Attending Provider Maicol SELF, Dr. Gilles Carlin Attending Provider Anushka SELF, Dr. Baires Attending Provider Anushka SELF, Dr. Baires Referring Provider Angelia REGULATORY AFFAIRS ASSISTANT, Bessy Referring Unavailable Galan REGULATORY AFFAIRS ASSISTANT, Bessy Attending Unavailable Misael, Alexy Chi Primary Care Unavailable Misael, Alexy Chi Primary Care Unavailable Roof REGULATORY AFFAIRS ASSISTANT, Chad H Attending Unavailable Roof REGULATORY AFFAIRS ASSISTANT, Chad H Referring Unavailable Mera, [place] Attending Unavailable Mera, Roosevelt Referring Unavailable Misael, Alexy Chi Primary Care Unavailable Liz Griffin Admitting Unavailable Ephraim Oneil Attending Unavailable Misael, Alexy Chi Primary Care Unavailable Liz Griffin L Consulting Unavailable Martin Davies Consulting Unavailable Vidal Campbell Consulting Unavailable Jojonathaneri, Vidal Admitting Unavailable Amaury Pena Attending Unavailable Misael, Alexy Chi Primary Care Unavailable Misael, Alexy Chi Primary Care Unavailable Martin Schmitz Consulting Unavailable Misael, Alexy Chi Admitting Unavailable Miasel, Alexy Chi Attending Unavailable Grace Valle Consulting Unavailable Viry Reveles Consulting Unavailable Trinity Fitch Consulting Unavailable James REGULATORY AFFAIRS ASSISTANT, Mar Consulting Unavailable MascNona rayo Consulting Unavailable Misael, Alexy Chi Attending Unavailable Misael, Alexy Chi Primary Care Unavailable Misael, Alexy Chi Referring Unavailable Jabari Hobbs Attending Unavailable Misael, Alexy Chi Primary Care Unavailable Liz Griffin L Consulting Unavailable Elias, Liz L Admitting Unavailable Farrah Malone Consulting Unavailable Nato Presley Consulting Unavailable Bebeto Corado Consulting Unavailable Oksana Coon Consulting Unavailable Jabari Hobbs Consulting Unavailable Liz Griffin L Admitting Unavailable Ephraim Oneil Attending Unavailable Liz Griffin L Consulting Unavailable Misael, Alexy Chi Primary Care Unavailable Martin Davies Consulting Unavailable Ephraim Oneil Consulting Unavailable Misael, Alexy Chi Primary Care Unavailable Kehinde, Raul Consulting Unavailable Kehinde, Raul Attending Unavailable Kehinde, Raul Admitting Unavailable Ct Marie Attending Unavailable Misael, Alexy Chi Primary Care Unavailable Farrah Malone Attending Unavailable Farrah Malone Referring Unavailable Misael, Alexy Chi Primary Care Unavailable Misael, Alexy Chi Primary Care Unavailable Misael, Alexy Chi Attending Unavailable Angelia REGULATORY AFFAIRS ASSISTANT, Bessy Referring Unavailable Galan REGULATORY AFFAIRS ASSISTANT, Bessy Attending Unavailable Misael, Alexy Chi Primary Care Unavailable Misael, Alexy Chi Primary Care Unavailable Misael, Alexy Chi Attending Unavailable Misael, Alexy Chi Primary Care Unavailable Kehinde, Raul Attending Unavailable [facility] Admitting Unavailable Misael, Alexy Chi Primary Care Unavailable Misael, Alexy Chi Attending Unavailable Logan John Consulting Unavailable Misael, Alexy Chi Primary Care Unavailable [facility] Attending Unavailable [facility] Admitting Unavailable Rock Lott Consulting Unavailable Bradley Morel Consulting Unavailable Edgardo Greenwood Consulting Unavailable Martin Echeverria Consulting Unavailable Niels Angulo Consulting Unavailable Jonathan Bullock Consulting Unavailable Angela Whitman Consulting UnavailRupert Perry Consulting Unavailable ScottManuelito arzate Consulting Unavailable Mely Upton Consulting Unavailable Aljunsharon Lamdonato Consulting Unavailable Silvia, Hi Consulting Unavailable Dennis Ulrich Consulting Unavailable Anthony Post Consulting Unavailable Maria Fernanda Sanders Consulting Unavailable Rusty Tran Consulting Unavailable Ayad Lewis Consulting Unavailable [facility], Raul Consulting Unavailable Vidal Campbell Attending Unavailable Misael, Alexy Chi Primary Care Unavailable Liz Griffin Attending Unavailable Martin Davies Attending Unavailable Misael, Alexy Chi Referring Unavailable Misael, Alexy Chi Primary Care Unavailable Chad Woodard NP Attending Unavailable Misael, Alexy Chi Primary Care Unavailable Christina Menard Attending Unavailable Misael, Alexy Chi Primary Care Unavailable Misael, Alexy Chi Referring Unavailable Alexei REGULATORY AFFAIRS ASSISTANT, Lovely Attending Unavailable Oksana Coon Attending Unavailable Lukas Nix Attending Unavailable Misael, Alexy Chi Attending Unavailable Misael, Alexy Chi Primary Care Unavailable Misael, Alexy Chi Primary Care Unavailable Misael, Alexy Chi Attending Unavailable Misael, Alexy Chi Referring Unavailable Misael, Alexy Chi Primary Care Unavailable Misael, Alexy Chi Attending Unavailable Viry Reveles Attending Unavailable Viry Reveles Referring Unavailable Misael, Alexy Chi Primary Care Unavailable Angelia REGULATORY AFFAIRS ASSISTANT, Bessy Attending Unavailable Angelia REGULATORY AFFAIRS ASSISTANT, Bessy Referring Unavailable Misael, Alexy Chi Primary Care Unavailable Vidal Almonte Attending Unavailable Misael, Alexy Chi Primary Care Unavailable Misael, Laexy Chi Referring Unavailable Misael, Alexy Chi Primary Care Unavailable Tena Scott Attending Unavailable Misael, Alexy Chi Primary Care Unavailable Misael, Alexy Chi Attending Unavailable Misael, Alexy Chi Referring Unavailable Misael, Alexy Chi Primary Care Unavailable Rena Arreola Attending Unavailable Rena Arreola Referring Unavailable Misael, Alexy Chi Primary Care Unavailable Misael, Alexy Chi Attending Unavailable Misael, Alexy Chi Attending Unavailable Misael, Alexy Chi Primary Care Unavailable Misael, Alexy Chi Referring Unavailable Martin Davies Attending Unavailable Martin Davies Referring Unavailable Misael, Alexy Chi Primary Care Unavailable Javier Bedoya Attending Unavailable Misael, Alexy Chi Primary Care Unavailable Misael, Alexy Chi Referring Unavailable Misael, Alexy Chi Referring Unavailable Misael, Alexy Chi Primary Care Unavailable Misael, Alexy Chi Attending Unavailable Misael, Alexy Chi Attending Unavailable Misael, Alexy Chi Primary Care Unavailable Misael, Alexy Chi Primary Care Unavailable Jabari Hobbs Attending Unavailable Liz Griffin Consulting Unavailable Liz Griffin Admitting Unavailable Farrah Malone Consulting Unavailable Nato Presley Consulting Unavailable Bebeto Corado Consulting Unavailable Oksana Coon Consulting Unavailable Amaury Pena Attending Unavailable Frank, Ct Admitting Unavailable Frank, Ct Referring Unavailable Bebeto Corado Consulting Unavailable Misael, Alexy Chi Primary Care Unavailable Javier Bedoya Consulting Unavailable Ct Marie Consulting Unavailable Martin Davies Attending Unavailable Misael, Alexy Chi Primary Care Unavailable Kehinde, Raul Consulting Unavailable Kehinde, Raul Admitting Unavailable Menard, Christina Admitting Unavailable Christina Menard Consulting Unavailable Ephraim Oneil Attending Unavailable Misael, Alexy Chi Primary Care Unavailable Menard Christina Consulting Unavailable Derian, Christina Admitting Unavailable Ephraim Oneil Attending Unavailable Ephraim Oneil Consulting Unavailable Martin Davies Attending Unavailable Martin Davies Consulting Unavailable Roosevelt Tesfaye Attending Unavailable Vidal Campbell Consulting Unavailable Vidal Campbell Admitting Unavailable Amaury Pena Attending Unavailable Misael, Alexy Chi Primary Care Unavailable Amaury Pena Consulting Unavailable Roosevelt Tesfaye Attending Unavailable Martin Davies Referring Unavailable Misael, Alexy Chi Primary Care Unavailable Misael, Alexy Chi Primary Care Unavailable Liz Griffin Attending Unavailable Farrah Malone Attending Unavailable Logan John Consulting Unavailable Rock Lott Consulting Unavailable Bradley Morel Consulting Unavailable Edgardo Greenwood Consulting Unavailable Martin Echeverria Consulting Unavailable Niels Angulo Consulting Unavailable Jonathan Bullock Consulting Unavailable Angela Whitman Consulting UnavailRupert Perry Consulting Unavailable Manuelito Scott Consulting Unavailable Hermelindo Oliver Consulting Unavailable Mely Upton Consulting Unavailable Tobin Medel Consulting Unavailable Perea, Caitlin Consulting Unavailable Silvia, Hi Consulting Unavailable Dennis Ulrich Consulting Unavailable Anthony Post Consulting Unavailable Marc Mancuso Consulting Unavailable Maria Fernanda Sanders Consulting Unavailable Merry Rosario Consulting Unavailable Nixon Kahn Consulting Unavailable Rusty Tran Consulting Unavailable Ayad Lewis Consulting Unavailable Edgardo Greenwood Attending Unavailable Shaggy, Oksana Chana Referring Unavailable Jabari Hobbs Referring Unavailable Nato Presley Attending Unavailable Ana María Arteaga Attending Unavailable Misael, Alexy Chi Primary Care Unavailable Koram, Oksana Chana Referring Unavailable Vidal Almonte Attending Unavailable Amaury Pena Attending Unavailable Ct Marie Admitting Unavailable Frank, Ct Referring Unavailable Bebeto Corado Consulting Unavailable Misael, Alexy Chi Primary Care Unavailable Javier Bedoya Consulting Unavailable Ct Marie Consulting Unavailable Amaury Pena Consulting Unavailable Mitali Hagen Attending Unavailabl e Misael, Alexy Chi Primary Care Unavailable Misael, Alexy Chi Referring Unavailable Misael, Alexy Chi Primary Care Unavailable Roosevelt Tesfaye Attending Unavailable Mitali Hagen Attending Unavailabl Mitali Early Referring Unavailabl e Misael, Alexy Chi Primary Care Unavailable Misael, Alexy Chi Primary Care Unavailable Chad Woodard NP Attending Unavailable Misael, Alexy Chi Referring Unavailable Misael, Alexy Chi Primary Care Unavailable Bessy Galan NP Attending Unavailable Misael, Alexy Chi Referring Unavailable Bessy Galan NP Attending Unavailable Misael, Alexy Chi Primary Care Unavailable Misael, Alexy Chi Referring Unavailable Misael, Alexy Chi Referring Unavailable Mitali Hagen Attending Unavailabl e Misael, Alexy Chi Primary Care Unavailable Misael, Alexy Chi Primary Care Unavailable Misael, Alexy Chi Attending Unavailable Misael, Alexy Chi Referring Unavailable Allergies Allergy Classification Reported Allergen(s) Allergy Type Date of Onset Reaction(s) Facility (14 sources) amLODIPine drug allergy 04-15-19 16 constipation [facility] Work Phone: [phone] (14 sources) ascorbic acid / beta carotene / cuprous oxide / vitamin E / zinc oxide drug allergy 10-04-19 16 rash [facility] Work Phone: [phone] (14 sources) doxazosin drug allergy 05-16-19 16 lightheadedness [facility] Work Phone: [phone] (14 sources) fish oil drug allergy 10-04-19 16 rash [facility] Work Phone: [phone] (20 sources) Sulfonamides (Antibiotic); Translations: [Sulfonamide (substance)] drug allergy 02-02-20 09 Eruption of skin (disorder) [facility] Work Phone: [phone] (14 sources) OXYBUT drug allergy 10-04-19 16 rash [facility] Work Phone: [phone] (20 sources) Sulfonamides (Antibiotic); Translations: [Sulfa (Sulfonamide Antibiotics)] Allergy to substance 06-15-19 22 PEELING RASH [facility] Medications Current Medications Medication Drug Class(es) Dates Sig (Normalized) Sig (Original) acetaminophen 500 mg oral tablet (20 sources) Start: 07-13-2024 Start: 07-06-2024 End: 07-13-2024 Start: 04-07-2024 End: 07-06-2024 Start: 07-19-2023 Tylenol 325 mg oral capsule Dose : 650 mg =, Oral, q4h, PRN Pain, scale 1-6, 0 Refill(s) Start Date: 07/19/23 Status: Ordered Start: 04-18-2023 acetaminophen 500 mg oral capsule Dose : 1,000 mg = 2 cap(s), Oral, q6hr, PRN as needed for pain, 0 Refill(s) Start Date: 04/18/23 Status: Ordered Start: 10-24-2021 End: 08-02-2023 albuterol MDI (90 mcg/inh) [facility] free inhalation aerosol (2 sources) Start: 04-18-2023 albuterol MDI (90 mcg/inh) [facility] free inhalation aerosol Inhalation, q4h, PRN Shortness of breath or wheezing, 0 Refill(s) Start Date: 04/18/23 Status: Ordered docusate sodium 50 mg / sennosides, [facility] 8.6 mg oral tablet (2 sources) Start: 07-06-2024 furosemide 40 mg oral tablet (20 sources) Loop Diuretic Start: 07-13-2024 Start: 01-20-2024 End: 07-06-2024 Start: 07-19-2023 End: 08-02-2023 Start: 10-24-2021 End: 01-18-2024 Start: 10-24-2021 End: 04-26-2023 take 40 mg by mouth once daily Furosemide Discontinued 40 MG PO DAILY August 28, 2022 10:18am March 22, 2023 5:08pm Start: 07-09-2017 End: 10-15-2021 Start: 07-09-2017 End: 10-15-2021 take 1 tablet by mouth once daily Furosemide (Lasix) 40 mg tablet Discontinued 40 MG PO DAILY January 29, 2020 9:33am January 29, 2020 10:28am Start: 12-07-2016 FUROSEMIDE 40 MG TABS 1 tab daily FUROSEMIDE [id number] Bessy Galan CNP Start: 07-03-2013 End: 05-04-2015 take 1 tablet by mouth once daily LASIX 40 MG TABS One tablet by mouth daily FUROSEMIDE [id number] Mitali Hagen PA-C 3 ml insulin degludec 200 unt/ml pen injector (20 sources) Insulin Analog Start: 07-10-2023 inject 1 dose by subcutaneous injection once daily Tresiba FlexTouch 200 units/mL 3 mL subcutaneous solution Dose : 40 unit(s) =, Subcutaneous, qDay, rotate injection sites, # 9 mL, 0 Refill(s) Start Date: 07/10/23 Status: Ordered Start: 04-22-2023 inject 1 dose by sub cutaneous injection once daily at bedtime Tresiba 100 units/mL subcutaneous solution Dose : 30 unit(s) =, Subcutaneous, qHS, 0 Refill(s) Start Date: 04/22/23 Status: Ordered Start: 02-16-2023 Insulin Deglud ec Active 30 UNIT SC AT BEDTIME February 16, 2023 3:51pm Start: 02-16-2023 Insulin Deglud ec Active 30 UNIT SC AT BEDTIME February 16, 2023 2:51pm Start: 01-29-2022 End: 02-16-2023 Insulin Degludec Discontinue d 40 UNIT SC AT BEDTIME January 29, 2022 4:06pm February 16, 2023 3:51pm Start: 01-29-2022 End: 02-16-2023 Insulin Degludec Discontinue d 40 UNIT SC AT BEDTIME January 29, 2022 3:06pm February 16, 2023 2:51pm Start: 01-29-2022 Insulin Deglud ec Active 40 UNIT SC AT BEDTIME January 29, 2022 3:06pm Start: 01-29-2022 Insulin Deglud ec Active 40 UNIT SC AT BEDTIME January 29, 2022 4:06pm Start: 01-29-2022 Insulin Deglud ec Active 40 UNIT SC DAILY January 29, 2022 4:06pm Start: 01-29-2022 Insulin Deglud ec Active 40 UNIT SC DAILY January 29, 2022 3:06pm Start: 10-24-2021 End: 01-29-2022 Insulin Degludec Discontinue d 45 UNIT SC DAILY October 24, 2021 6:30pm January 29, 2022 4:06pm Start: 05-18-2020 End: 10-24-2021 Insulin Degludec Discontinue d 40 UNIT SC DAILY May 18, 2020 4:10pm October 24, 2021 6:30pm Start: 12-23-2019 End: 01-29-2022 Start: 12-23-2019 End: 01-29-2022 Insulin Degludec Discontinue d SC December 23, 2019 12:00am May 18, 2020 4:11pm 3 ml insulin lispro 100 unt/ ml pen injector (20 sources) Insulin Analog Start: 07-13-2024 Start: 10-24-2021 End: 01-29-2022 Start: 10-24-2021 End: 01-29-2022 Insulin Lispro (Humalog Kwik pen Insulin) 100 unit/mL Insulin Pen Discontinued 10 UNIT SC THREE TIMES DAILY BEFORE MEALS 12 15October 24, 2021 12:00am January 29, 2022 4:06pm Start: 10-24-2021 End: 01-29-2022 metoprolol tartrate 100 mg o ral tablet (20 sources) beta-Adrenergic Triny Start: 04-25-2024 Start: 03-16-2024 End: 04-25-2024 Start: 03-12-2024 End: 03-12-2024 Start: 07-19-2023 End: 07-19-2023 take 1 tablet by mouth in the morning Toprol-XL Start: 07/19/23 8:00:00 AM EDT, Dose = 100 mg, = 1 tab(s), Oral, Hold if SBP (mmHg) Start Date: 07/19/23 Stop Date: 07/19/23 Status: Completed Start: 07-18-2023 End: 07-18-2023 take 1 tablet by mouth in the evening Toprol-XL Start: 07/18/23 5:00:00 PM EDT, Dose = 100 mg, = 1 tab(s), Oral, Hold if SBP (mmHg) Start Date: 07/18/23 Stop Date: 07/18/23 Status: Completed Start: 07-18-2023 End: 07-18-2023 take 1 tablet by mouth in the morning Toprol-XL Start: 07/18/23 8:00:00 AM EDT, Dose = 100 mg, = 1 tab(s), Oral, Hold if SBP (mmHg) Start Date: 07/18/23 Stop Date: 07/18/23 Status: Completed Start: 01-29-2020 End: 01-18-2024 Start: 01-29-2020 End: 04-05-2023 take 100 mg by mouth once daily Metoprolol Tartrate Di scontinued 100 MG PO DAILY 90 September 04, 2021 11:57am October 09, 2021 2:56pm Start: 12-31-2019 End: 01-29-2020 Start: 08-20-2018 End: 02-06-2019 take 50 mg by mouth twice daily Metoprolol Tartrate Di scontinued 50 MG PO TWICE A DAY 60 August 20, 2018 2:32pm February 06, 2019 2:23pm Start: 02-10-2018 End: 08-20-2019 Start: 05-28-2014 End: 02-10-2018 take 200 mg by mouth once daily Metoprolol Tartrate Di scontinued 200 MG PO DAILY May 28, 2014 2:22pm February 10, 2018 2:05pm Start: 05-28-2014 take 1 tablet by yissel once daily METOPROLOL TARTRATE 100 MG TABS One tablet by mouth daily METOPROLOL TARTRATE [id number] Pat Pa Start: 03-16-2013 End: 02-10-2018 Start: 03-16-2013 take 1 tablet by yissel twice daily METOPROLOL TARTRATE 100 MG TABS One tablet by mouth twice daily METOPROLOL TARTRATE [id number] Chad Woodard NP Start: 03-16-2013 take 2 tablets by mo [facility] twice daily METOPROLOL TARTRATE 50 MG TABS Two tablets by mouth twice daily METOPROLOL TARTRATE [id number] Roosevelt Tesfaye MD 24 hr mirabegron 50 mg extended release oral tablet (20 sources) beta3-Adrenergic Agonist Start: 04-18-2023 take 1 tablet by mouth twice daily Myrbetriq 50 mg oral tablet, extended release Dose : 50 mg =, Oral, BID, 0 Refill(s) Start Date: 04/18/23 Status: Ordered Start: 11-14-2022 take 1 tablet by yissel every twenty-four hours at bedtime Mirabegron (Myrbetriq) 50 mg tablet extended release 24 hr Active 50 MG PO AT BEDTIME November 14, 2022 12:00am pantoprazole 40 mg delayed r elease oral tablet (2 sources) Proton Pump Inhibitor Start: 07-06-2024 microencapsulated potassium chloride 20 meq extended release oral tablet (20 sources) Start: 04-05-2024 Start: 01-20-2024 End: 03-16-2024 Start: 08-02-2023 End: 01-18-2024 Start: 07-19-2023 potassium chlo ride 20 mEq oral tablet, extended release Dose : 20 mEq = 1 tab(s), Oral, TIDM, # 90 tab(s), 0 Refill(s) Start Date: 07/19/23 Status: Ordered Start: 04-18-2023 potassium chlo ride 20 mEq oral tablet, extended release Dose : 20 mEq = 1 tab(s), Oral, Daily, 0 Refill(s) Start Date: 04/18/23 Status: Ordered Start: 06-14-2021 End: 08-02-2023 Start: 02-04-2018 End: 12-19-2020 Start: 11-19-2013 KLOR-CON 20 ME Q PACK 1 daily POTASSIUM CHLORIDE [id number] Mitali Hagen PA-C Start: 11-19-2013 End: 05-04-2015 take 1 tablet by mouth twice daily KLOR-CON 20 MEQ PACK One tablet by mouth twice daily POTASSIUM CHLORIDE [id number] Roosevelt Tesfaye MD Start: 11-19-2013 End: 05-04-2015 take 1 tablet by mouth twice daily KLOR-CON 20 MEQ PACK One tablet by mouth twice daily POTASSIUM CHLORIDE [id number] Mitali Hagen PA-C Start: 11-19-2013 KLOR-CON 20 ME Q PACK 1 daily POTASSIUM CHLORIDE [id number] Mitali Hagen PA-C Start: 11-19-2013 KLOR-CON 20 ME Q PACK 1 daily POTASSIUM CHLORIDE [id number] Mitali Hagen PA-C Start: 11-19-2013 KLOR-CON 20 ME Q PACK 1 daily POTASSIUM CHLORIDE [id number] Mitali Hagen PA-C rosuvastatin calcium 40 mg o ral tablet (20 sources) HMG-CoA Reductase Inhibitor Start: 12-02-2023 Start: 07-03-2013 End: 12-02-2023 Start: 07-03-2013 take 1 tablet by yissel th once daily CRESTOR 40 MG TABS One tablet by mouth daily ROSUVASTATIN CALCIUM [id number] Roosevelt Tesfaye MD spironolactone 25 mg oral ta blet (20 sources) Aldosterone Antagonist Start: 05-06-2024 End: 06-30-2024 Start: 01-20-2024 End: 03-16-2024 Start: 05-04-2015 End: 10-18-2016 take 1 tablet by mouth once daily SPIRONOLACTONE 25 MG TABS One tablet by mouth daily SPIRONOLACTONE [id number] Mitali Hagen PA-C levothyroxine sodium 0.2 mg oral tablet (20 sources) l-Thyroxine Start: 05-14-2024 Start: 12-02-2023 End: 05-14-2024 Start: 08-02-2023 End: 12-02-2023 Start: 04-18-2023 levothyroxine 50 mcg (0.05 mg) oral tablet Dose : 50 mcg = 1 tab(s), Oral, qDayAC, 0 Refill(s) Start Date: 04/18/23 Status: Ordered Start: 04-18-2023 levothyroxine 200 mcg (0.2 mg) oral tablet Dose : 200 mcg = 1 tab(s), Oral, qDay, 0 Refill(s) Start Date: 04/18/23 Status: Ordered Start: 02-14-2023 End: 03-16-2024 Start: 07-07-2020 End: 08-02-2023 Start: 07-07-2020 End: 01-29-2022 take 225 ug by mouth once daily Levothyroxine Discontinued 225 MCG PO DAILY June 14, 2021 1:40pm January 29, 2022 3:57pm Start: 02-04-2018 End: 07-07-2020 Start: 02-04-2018 End: 07-07-2020 take 100 ug by mouth once daily Levothyroxine Discontinued 100 MCG PO DAILY December 31, 2019 10:10am January 29, 2020 9:35am Start: 02-04-2018 End: 07-07-2020 take 200 ug by mouth once daily Levothyroxine Discontinued 200 MCG PO DAILY January 29, 2020 9:33am May 18, 2020 4:11pm Start: 07-03-2013 End: 02-04-2018 Start: 07-03-2013 End: 02-04-2018 take 175 ug by mouth once daily Levothyroxine Discontinued 175 MCG PO DAILY February 04, 2018 3:08pm February 04, 2018 3:09pm Start: 07-03-2013 take 1 tablet by yissel th once daily LEVOTHYROXINE SODIUM 175 MCG TABS One tablet by mouth daily LEVOTHYROXINE SODIUM [id number] Roosevelt Tesfaye MD take 1 tablet by yissel th once daily LEVOTHROID 112 MCG TABS One tablet by mouth daily LEVOTHYROXINE SODIUM [id number] Ignacio Francois MA take 1 tablet by yissel th once daily LEVOTHROID 137 MCG TABS One tablet by mouth daily LEVOTHYROXINE SODIUM [id number] Vi Pulliam MD traMADol hydrochloride 50 mg oral tablet (5 sources) Opioid Agonist Start: 07-19-2023 End: 07-24-2023 traMADol 50 mg oral tablet Dose : 25 mg = 0.5 tab(s), Oral, q12h, PRN Pain, scale 7-10, X 5 day(s), # 4 tab(s), 0 Refill(s), 07/24/23 11:32:00 AM EDT, Acute postoperative pain, 172.7, cm, 07/10/23 6:11:00 EDT, Height, 122.4, kg, 07/10/23 6:11:00 EDT, Dosing Weight Start Date: 07/19/23 Stop Date: 07/24/23 Status: Ordered Start: 07-19-2023 End: 08-02-2023 Vibegron (20 sources) Start: 04-01-2024 Start: 06-14-2021 take 1 tablet by yissel th once daily Vibegron (Gemtesa) 75 mg tablet Active 75 MG PO DAILY June 14, 2021 1:40pm Start: 06-14-2021 take 1 tablet by yissel th once daily Vibegron (Gemtesa) 75 mg tablet Active 75 MG PO DAILY June 13, 2021 11:00pm Start: 06-14-2021 take 1 tablet by yissel th once daily Vibegron (Gemtesa) 75 mg tablet Active 75 MG PO DAILY June 14, 2021 12:00am Vitamin D3 25 mcg (1000 intl units) oral capsule (1 source) Start: 07-03-2023 Vitamin D3 25 mcg (1000 intl units) oral capsule Dose : 25 mcg = 1 cap(s), Oral, Daily, 0 Refill(s) Start Date: 07/03/23 Status: Ordered (20 sources) Start: 07-13-2024 Start: 07-06-2024 End: 07-13-2024 Start: 07-06-2024 End: 07-13-2024 Start: 05-14-2024 Start: 04-01-2024 End: 06-30-2024 Start: 04-01-2024 End: 06-30-2024 Start: 04-01-2024 Start: 01-20-2024 End: 03-16-2024 Start: 12-26-2023 End: 07-13-2024 Start: 12-26-2023 Start: 12-20-2023 End: 01-20-2024 Start: 12-02-2023 End: 12-26-2023 Start: 10-21-2023 Start: 07-19-2023 End: 12-20-2023 Start: 03-22-2023 End: 04-05-2023 Start: 03-22-2023 Start: 02-16-2023 End: 07-19-2023 Start: 02-16-2023 Start: 11-14-2022 End: 12-26-2023 Start: 01-29-2022 End: 02-16-2023 Completed/Discontinued Medications Medication Drug Class(es) Dates Sig (Normalized) Sig (Original) albuterol 0.83 mg/ml inhalation solution (20 sources) beta2-Adrenergic Agonist Start: 07-06-2024 End: 07-13-2024 Start: 06-30-2024 End: 07-06-2024 Start: 11-14-2022 End: 08-02-2023 Start: 11-14-2022 Albuterol Sulf ate Active 1 INH INHALATION Q4H November 14, 2022 12:00am Start: 11-14-2022 Start: 05-07-2019 End: 12-19-2020 Start: 05-07-2019 End: 12-19-2020 take 1 puff(s) by inhalation every four hours Albuterol Sulfate Discontinued 2 PUFF INHALATION Q4H 1 November 05, 2019 1:57pm December 19, 2020 1:05pm administer with spacer Start: 05-07-2019 End: 12-19-2020 Start: 11-16-2016 End: 02-04-2018 Start: 11-16-2016 End: 02-04-2018 take 1 puff(s) by inhalation every four hours as needed Albuterol Sulfate Discontinued 2 PUFF INHALATION EVERY 4 HOURS NEEDED November 16, 2016 12:00am February 04, 2018 3:12pm Start: 11-16-2016 End: 02-04-2018 Start: 11-16-2016 PROAIR HFA 108 (90 Base) MCG/ACT AERS Two inh every 4 hrs as needed ALBUTEROL SULFATE [id number] Pat Pa Start: 11-16-2016 PROAIR HFA 108 (90 Base) MCG/ACT AERS Two inh every 4 hrs as needed ALBUTEROL SULFATE [id number] Pat Pa Start: 11-16-2016 PROAIR HFA 108 (90 Base) MCG/ACT AERS Two inh every 4 hrs as needed ALBUTEROL SULFATE [id number] Pat Pa amiodarone hydrochloride 200 mg oral tablet (20 sources) Antiarrhythmic Start: 01-20-2024 End: 03-12-2024 Start: 01-29-2020 End: 01-29-2020 Start: 12-23-2019 End: 12-31-2019 Start: 05-21-2019 End: 08-20-2019 Start: 07-03-2013 End: 02-04-2018 amLODIPine 5 mg oral tablet (20 sources) Dihydropyridine Calcium Channel Triny Start: 08-20-2018 End: 03-27-2019 Start: 11-16-2016 End: 02-04-2018 Start: 05-31-2014 End: 09-28-2014 take 1 tablet by mouth once daily AMLODIPINE BESYLATE 5 MG TABS One half tablet by mouth daily AMLODIPINE BESYLATE [id number] Roosevelt Tesfaye MD Start: 05-05-2013 End: 08-21-2013 take 1 tablet by mouth once daily AMLODIPINE BESYLATE 10 MG TABS One tablet by mouth daily AMLODIPINE BESYLATE [id number] Roosevelt Tesfaye MD Start: 02-24-2013 End: 03-16-2013 amLODIPine 5 mg / valsartan 320 mg oral tablet (20 sources) Dihydropyridine Calcium Channel Triny, Angiotensin 2 Receptor Triny End: 05-26-2012 take 1 tablet by mouth once daily EXFORGE 5-320 MG TABS One tablet by mouth daily AMLODIPINE BESYLATE-VALSARTAN [id number] Ignacio Francois MA take 1 tablet by yissel th once daily EXFORGE 5-320 MG TABS One tablet by mouth daily AMLODIPINE BESYLATE-VALSARTAN [id number] Ignacio Francois MA End: 05-26-2012 take 1 tablet by mouth once daily EXFORGE 5-320 MG TABS One tablet by mouth daily AMLODIPINE BESYLATE-VALSARTAN [id number] Vi Pulliam MD End: 05-26-2012 take 1 tablet by mouth once daily EXFORGE 5-320 MG TABS One tablet by mouth daily AMLODIPINE BESYLATE-VALSARTAN [id number] Vi Pulliam MD take 1 tablet by yissel th once daily EXFORGE 5-320 MG TABS One tablet by mouth daily AMLODIPINE BESYLATE-VALSARTAN [id number] Ignacio Francois MA amoxicillin 500 mg / clavula beverly 125 mg oral tablet (20 sources) Penicillin-class Antibacterial Start: 10-15-2021 End: 10-24-2021 apixaban 2.5 mg oral tablet (20 sources) Factor Xa Inhibitor Start: 10-09-2021 End: 08-20-2023 Start: 10-09-2021 End: 04-26-2023 take 1 tablet by mouth once daily Apixaban (Eliquis) 2.5 mg tablet Discontinued 2.5 MG PO DAILY October 09, 2021 12:00am March 22, 2023 5:00pm Start: 06-14-2021 End: 06-14-2021 take 5 mg by mouth once Apixaban Discontinued 5 MG P O ONCE June 14, 2021 1:39pm June 14, 2021 1:51pm Start: 01-12-2014 End: 06-14-2021 Start: 01-12-2014 take 1 tablet by yissel th twice daily ELIQUIS 5 MG TABS One tablet by mouth twice daily APIXABAN [id number] Chloé Jewell RN ascorbic acid 113 mg / copper gluconate 0.4 mg / docosahexaenoic acid 87.5 mg / eicosapentaenoic acid 163 mg / lutein 2.5 mg / tocopherol acetate 100 unt / zeaxanthin 0.5 mg / zinc oxide 17.4 mg oral capsule (18 sources) Vitamin C Start: 11-19-2013 End: 10-04-2015 PRESERVISION AREDS 2 CAPS 1 daily MULTIPLE VITAMINS-MINERALS [id number] KELLEY SolitarioC benazepril hydrochloride 40 mg oral tablet (20 sources) Angiotensin Converting Enzyme Inhibitor Start: 02-09-2015 End: 04-23-2022 Start: 02-09-2015 take 1 tablet by yissel th twice daily BENAZEPRIL HCL 40 MG TABS One tablet by mouth twice daily BENAZEPRIL HCL [id number] Mitali Hagen PA-C Start: 09-28-2014 End: 02-09-2015 take 1 tablet by mouth once daily BENAZEPRIL HCL 10 MG TABS One tablet by mouth daily BENAZEPRIL HCL [id number] Pat Yadav biotin 1 mg oral tablet (20 sources) Start: 11-19-2013 End: 05-18-2014 BIOTIN 1000 MCG TABS 1 daily BIOTIN [id number] Mitali Hagen PA-C budesonide 0.25 mg/ml inhalation suspension (2 sources) Corticosteroid Start: 07-06-2024 End: 07-13-2024 bumetanide 2 mg oral tablet (20 sources) Loop Diuretic Start: 02-14-2023 End: 03-22-2023 calcium (20 sources) Phosphate Binder, Calcium End: 05-05-2013 take 1 tablet by mouth once daily CALCIUM TABS 600mg One tablet by mouth daily CALCIUM TABS [id number] Roosevelt Tesfaye MD End: 05-05-2013 take 1 tablet by mouth once daily CALCIUM TABS 600mg One tablet by mouth daily CALCIUM TABS [id number] Roosevelt Tesfaye MD take 1 tablet by yissel th once daily CALCIUM TABS 600mg One tablet by mouth daily CALCIUM TABS [id number] Vi Pulliam MD End: 05-05-2013 take 1 tablet by mouth once daily CALCIUM TABS 600mg One tablet by mouth daily CALCIUM TABS [id number] Roosevelt Tesfaye MD take 1 tablet by yissel th once daily CALCIUM TABS 600mg One tablet by mouth daily CALCIUM TABS [id number] Vi Pulliam MD cefdinir 300 mg oral capsule (12 sources) Cephalosporin Antibacterial Start: 04-28-2024 End: 06-26-2024 Start: 12-29-2023 End: 03-16-2024 cephalexin 500 mg oral capsu le (20 sources) Cephalosporin Antibacterial Start: 12-02-2023 End: 12-05-2023 Start: 04-01-2023 End: 04-15-2023 chlorthalidone 25 mg oral tablet (20 sources) Thiazide-like Diuretic Start: 03-25-2013 End: 07-03-2013 take 1 tablet by mouth once daily CHLORTHALIDONE 25 MG TABS One tablet by mouth daily CHLORTHALIDONE [id number] Roosevelt Tesfaye MD cholecalciferol 0.025 mg oral capsule (20 sources) Vitamin D Start: 01-20-2024 End: 07-13-2024 Start: 12-20-2023 End: 01-18-2024 Start: 06-14-2021 End: 08-02-2023 GLUCOSAMINE-CHONDROITIN CAPS (6 sources) Start: 12-17-2016 take 1 tablet by mouth once daily GLUCOSAMINE-CHONDROITIN CAPS One tablet by mouth daily GLUCOSAMINE-CHONDROITIN CAPS [id number] Chad Woodard NP Start: 12-17-2016 take 1 tablet by yissel once daily GLUCOSAMINE-CHONDROITIN CAPS One tablet by mouth daily GLUCOSAMINE-CHONDROITIN CAPS [id number] Chad Vance SAUCEDO ciprofloxacin 250 mg oral ta blet (8 sources) Quinolone Antimicrobial Start: 12-02-2023 End: 12-20-2023 clindamycin 300 mg oral caps ule (20 sources) Lincosamide Antibacterial Start: 05-22-2021 End: 05-27-2021 cloNIDine hydrochloride 0.1 mg oral tablet (20 sources) Central alpha-2 Adrenergic Agonist Start: 02-20-2019 End: 03-27-2019 Start: 02-20-2019 End: 03-27-2019 take 0.1 mg by mouth at bedtime Clonidine Hcl Disconti nued 0.1 MG PO AT BEDTIME February 20, 2019 1:00am March 27, 2019 3:36pm Start: 02-20-2019 End: 03-27-2019 COENZYME Q10 (20 sources) Start: 05-05-2013 take 1 tablet by yissel th once daily CO Q-10 100 MG CAPS One tablet by mouth daily COENZYME Q10 [id number] Roosevelt Tesfaye MD Start: 05-05-2013 End: 11-19-2013 take 1 tablet by mouth once daily CO Q-10 100 MG CAPS One tablet by mouth daily COENZYME Q10 [id number] Mitali Hagen PA-C Start: 05-05-2013 End: 11-19-2013 take 1 tablet by mouth once daily CO Q-10 100 MG CAPS One tablet by mouth daily COENZYME Q10 [id number] Roosevelt Tesfaye MD Start: 05-05-2013 End: 11-19-2013 take 1 tablet by mouth once daily CO Q-10 100 MG CAPS One tablet by mouth daily COENZYME Q10 [id number] Mitali Hagen PA-C Start: 05-05-2013 take 1 tablet by yissel th once daily CO Q-10 100 MG CAPS One tablet by mouth daily COENZYME Q10 [id number] Roosevelt Tesfaye MD 24 hr dilTIAZem hydrochlorid e 240 mg extended release oral capsule (20 sources) Calcium Channel Triny Start: 07-07-2020 End: 06-05-2024 Start: 07-07-2020 End: 06-05-2024 Start: 07-07-2020 End: 04-26-2023 take 240 mg by mouth once daily Diltiazem Hcl Discontinued 240 MG PO DAILY July 17, 2021 11:18am October 09, 2021 2:56pm Start: 03-27-2019 End: 07-07-2020 doxazosin 1 mg oral tablet (20 sources) alpha-Adrenergic Triny Start: 11-01-2015 End: 02-04-2018 take 2 mg by mouth at bedtime Doxazosin Discontinued 2 MG PO AT BEDTIME November 01, 2015 12:00am February 04, 2018 3:12pm Start: 11-01-2015 take 1 tablet by yissel th once daily CARDURA 8 MG TABS One tablet by mouth daily DOXAZOSIN MESYLATE [id number] Chad Woodard NP Start: 05-16-2015 End: 02-04-2018 Start: 05-16-2015 take 2 tablets by mo uth twice daily DOXAZOSIN MESYLATE 2 MG TABS Two tablets by mouth twice daily DOXAZOSIN MESYLATE [id number] Natalie Rehman RN Start: 05-16-2015 take 1 tablet by yissel th twice daily DOXAZOSIN MESYLATE 4 MG TABS One tablet by mouth twice daily DOXAZOSIN MESYLATE [id number] Roosevelt Tesfaye MD Start: 05-16-2015 take 0.5 tablet by m myra twice daily CARDURA 8 MG TABS One-half tablet by mouth twice daily DOXAZOSIN MESYLATE [id number] Chad Woodard NP Start: 05-16-2015 CARDURA 2 MG T ABS One tab every night DOXAZOSIN MESYLATE [id number] Pat Pa Start: 04-27-2015 End: 04-29-2015 CARDURA 2 MG TABS One tab ev salome night DOXAZOSIN MESYLATE [id number] Pat Pa doxycycline hyclate 100 mg oral tablet (8 sources) Tetracycline-class Drug Start: 12-02-2023 End: 12-26-2023 ELCONAZOLE (20 sources) Start: 11-19-2013 End: 05-18-2014 ELCONAZOLE 150 mg 1 a week ELCONAZOLE Roosevelt Tesfaye MD Start: 11-19-2013 ELCONAZOLE 150 mg 1 a week ELCONAZOLE Mitali Hagen PA-C Start: 11-19-2013 ELCONAZOLE 150 mg 1 a week ELCONAZOLE Mitali Hagen PA-C Start: 11-19-2013 End: 05-18-2014 ELCONAZOLE 150 mg 1 a week 2 NIKOLASAZOLE Roosevelt Tesfaye MD ergocalciferol (20 sources) Provitamin D2 Compound Start: 11-19-2013 VITAMIN D2 TABS 1 a month ERGOCALCIFEROL TABS [id number] Mitali Hagen PA-C Start: 11-19-2013 End: 11-21-2016 take 1 tablet by mouth every month VITAMIN D (ERGOCALCIFEROL) 66657 UNIT CAPS One tablet by mouth monthly ERGOCALCIFEROL [id number] Pat Pa Start: 11-19-2013 End: 11-21-2016 take 1 tablet by mouth every month VITAMIN D (ERGOCALCIFEROL) 83786 UNIT CAPS One tablet by mouth monthly ERGOCALCIFEROL [id number] Pat Pa Start: 11-19-2013 VITAMIN D2 TAB S 1 a month ERGOCALCIFEROL TABS [id number] Mitali Hagen PA-C estrogens, conjugated ([facility]) 0.625 mg/ml vaginal cream (20 sources) Estrogen Start: 02-09-2015 End: 04-06-2016 PREMARIN 0.625 MG/GM CREA Insert 1 gram once weekly ESTROGENS, CONJUGATED [id number] Mitali Hagen PA-C Start: 02-09-2015 PREMARIN 0.625 MG/GM CREA Insert 1 gram once weekly ESTROGENS, CONJUGATED [id number] Pat Royal Doryjustaluz Start: 02-09-2015 End: 04-06-2016 PREMARIN 0.625 MG/GM CREA In sert 1 gram once weekly ESTROGENS, CONJUGATED [id number] Mitali Hagen PA-C ferrous sulfate 325 mg delay ed release oral tablet (20 sources) Start: 04-05-2023 End: 08-02-2023 Start: 04-04-2022 End: 03-22-2023 Finerenone (20 sources) Start: 08-20-2023 End: 12-02-2023 Start: 03-22-2023 End: 08-20-2023 Start: 03-22-2023 take 1 tablet by yissel th once daily Finerenone (Kerendia) 10 mg tablet Active 10 MG PO DAILY March 22, 2023 1:00am Start: 03-22-2023 fish oil (20 sources) Start: 11-19-2013 take 1 tablet by yissel th once daily FISH OIL 1000 MG CAPS One tablet by mouth daily OMEGA-3 FATTY ACIDS [id number] Roosevelt Tesfaye MD Start: 11-19-2013 FISH OIL 1000 MG CAPS 1 daily OMEGA-3 FATTY ACIDS [id number] Mitali Hagen PA-C Start: 11-19-2013 End: 10-04-2015 take 1 tablet by mouth once daily FISH OIL 1000 MG CAPS One tablet by mouth daily OMEGA-3 FATTY ACIDS [id number] Roosevelt Tesfaye MD Start: 11-19-2013 End: 10-04-2015 take 1 tablet by mouth once daily FISH OIL 1000 MG CAPS One tablet by mouth daily OMEGA-3 FATTY ACIDS [id number] Roosevelt Tesfaye MD Start: 11-19-2013 FISH OIL 1000 MG CAPS 1 daily OMEGA-3 FATTY ACIDS [id number] Mitali Hagen PA-C Start: 11-19-2013 take 1 tablet by yissel th once daily FISH OIL 1000 MG CAPS One tablet by mouth daily OMEGA-3 FATTY ACIDS [id number] Roosevelt Tesfaye MD Start: 11-19-2013 End: 10-04-2015 take 1 tablet by mouth once daily FISH OIL 1000 MG CAPS One tablet by mouth daily OMEGA-3 FATTY ACIDS [id number] Roosevelt Tesfaye MD Start: 11-19-2013 FISH OIL 1000 MG CAPS 1 daily OMEGA-3 FATTY ACIDS [id number] Mitali Hagen PA-C Start: 11-19-2013 take 1 tablet by yissel th once daily FISH OIL 1000 MG CAPS One tablet by mouth daily OMEGA-3 FATTY ACIDS [id number] Roosevelt Tesfaye MD fluconazole 100 mg oral tablet (20 sources) Azole Antifungal Start: 02-09-2015 take 1 tablet by mouth once daily DIFLUCAN 100 MG TABS One tablet by mouth daily FLUCONAZOLE [id number] Vi Pulliam MD Start: 02-09-2015 End: 10-04-2015 take 1 tablet by mouth twice daily DIFLUCAN 100 MG TABS One tablet by mouth twice daily FLUCONAZOLE [id number] Roosevelt Tesfaye MD glimepiride 1 mg oral tablet (20 sources) Sulfonylurea Start: 03-16-2024 End: 07-06-2024 Start: 04-22-2023 End: 12-02-2023 Start: 03-22-2023 End: 04-15-2023 Start: 03-22-2019 End: 02-16-2023 Start: 11-15-2016 End: 03-22-2019 Start: 05-05-2013 take 2 tablets by mo ut twice daily GLIMEPIRIDE 2 MG TABS Two tablets by mouth twice daily GLIMEPIRIDE [id number] Roosevelt Tesfaye MD Start: 05-05-2013 take 1 tablet by yissel th twice daily GLIMEPIRIDE 4 MG TABS One tablet by mouth twice daily GLIMEPIRIDE [id number] Roosevelt Tesfaye MD Start: 03-19-2013 End: 05-05-2013 take 1 tablet by mouth twice daily AMARYL 1 MG TABS One tablet by mouth twice daily GLIMEPIRIDE [id number] Mitali Hagen PA-C Start: 03-16-2013 take 1 tablet by yissel once daily GLIMEPIRIDE 2 MG TABS One tablet by mouth daily GLIMEPIRIDE [id number] Silvana Ball RN halobetasol propionate 0.5 mg/ml topical cream (20 sources) Corticosteroid Start: 02-09-2015 End: 04-06-2016 HALOBETASOL PROPIONATE 0.05 % CREA Apply twice daily to affected area HALOBETASOL PROPIONATE [id number] Mitali Hagen PA-C hydrALAZINE hydrochloride 50 mg oral tablet (20 sources) Arteriolar Vasodilator Start: 09-26-2016 take 1 tablet by mouth three times daily HYDRALAZINE HCL 25 MG TABS One tablet by mouth three times daily HYDRALAZINE HCL [id number] Natalie Rehman RN Start: 09-26-2016 End: 12-17-2016 take 1 tablet by mouth twice daily HYDRALAZINE HCL 50 MG TABS One tablet by mouth twice daily HYDRALAZINE HCL [id number] Roosevelt Tesfaye MD hydroCHLOROthiazide 25 mg oral tablet (20 sources) Thiazide Diuretic Start: 08-11-2013 End: 11-21-2016 hydroCHLOROthiazide 12.5 mg / losartan potassium 100 mg oral tablet (14 sources) Thiazide Diuretic, Angiotensin 2 Receptor Triny take 1 tablet by mouth once daily LOSARTAN POTASSIUM-HCTZ 100-12.5 MG TABS One tablet by mouth daily LOSARTAN POTASSIUM-HCTZ [id number] Vi Pulliam MD hydroCHLOROthiazide 50 mg / triamterene 75 mg oral tablet (20 sources) Potassium-sparing Diuretic, Thiazide Diuretic Start: 05-05-2013 End: 05-05-2013 take 1 tablet by mouth every week TRIAMTERENE-HCTZ 75-50 MG TABS One tablet by mouth WEEKLY TRIAMTERENE-HCTZ [id number] Roosevelt Tesfaye MD End: 03-19-2013 take 1 tablet by mouth once daily TRIAMTERENE-HCTZ 75-50 MG TABS One tablet by mouth daily TRIAMTERENE-HCTZ [id number] Ignacio Francois MA hydrOXYzine hydrochloride 50 mg oral tablet (20 sources) Antihistamine Start: 01-29-2020 End: 05-18-2020 Hydroxyzine Hcl Discontinued 25 MG PO January 29, 2020 9:33am May 18, 2020 4:11pm Start: 12-23-2019 End: 12-19-2020 Start: 12-17-2016 take 1 tablet by yissel twice daily HYDROXYZINE HCL 50 MG TABS One tablet by mouth twice daily HYDROXYZINE HCL [id number] Chad Woodard REGULATORY AFFAIRS ASSISTANT ipratropium bromide 0.2 mg/m l inhalation solution (20 sources) Anticholinergic Start: 10-15-2021 End: 10-24-2021 Start: 10-15-2021 End: 10-24-2021 take 0.5 mg by inhalation every four hours Ipratropium [place] Discontinued 0.5 MG INHALATION EVERY 4 HOURS October 15, 2021 4:25pm October 24, 2021 6:19pm levoFLOXacin 250 mg oral tablet (2 sources) Quinolone Antimicrobial Start: 07-06-2024 End: 07-13-2024 linseed oil 1000 mg oral capsule (20 sources) End: 03-19-2013 take 1 tablet by mouth once daily FLAX SEED OIL 1000 MG CAPS One tablet by mouth daily FLAXSEED (LINSEED) [id number] Vi Pulliam MD lisinopril 5 mg oral tablet (20 sources) Angiotensin Converting Enzyme Inhibitor Start: 03-16-2013 End: 05-05-2013 take 1 tablet by mouth once daily LISINOPRIL 5 MG TABS One tablet by mouth daily LISINOPRIL [id number] Silvana Ball RN loratadine 10 mg oral capsule (20 sources) Start: 11-15-2016 End: 02-04-2018 Start: 10-18-2016 take 1 tablet by yissel once daily LORATADINE 10 MG TABS One tablet by mouth daily LORATADINE [id number] Roosevelt Tesfaye MD losartan potassium 100 mg oral tablet (20 sources) Angiotensin 2 Receptor Triny Start: 03-16-2013 End: 04-06-2015 take 1 tablet by mouth once daily LOSARTAN POTASSIUM 100 MG TABS One tablet by mouth daily LOSARTAN POTASSIUM [id number] KELLEY SolitarioC meloxicam 15 mg oral tablet (20 sources) Nonsteroidal Anti-inflammatory Drug Start: 02-14-2023 End: 02-16-2023 metFORMIN hydrochloride 850 mg oral tablet (20 sources) Biguanide Start: 02-24-2013 End: 02-25-2013 metOLazone 2.5 mg oral tablet (20 sources) Thiazide-like Diuretic Start: 04-26-2023 End: 08-02-2023 Start: 04-05-2023 End: 04-15-2023 Start: 04-05-2023 End: 04-15-2023 Metolazone Discontinued 5 MG PO .COMPLEX 2 April 05, 2023 1:00am April 15, 2023 11:44am 5 mg orally take one the day you pick this up and one the following week. Start: 04-05-2023 End: 04-15-2023 montelukast 10 mg oral tablet (20 sources) Leukotriene Receptor Antagonist Start: 11-05-2019 End: 12-23-2019 MULTIPLE VITAMINS-MINERALS (20 sources) Start: 10-18-2016 take 1 tablet by mouth once daily ICAPS AREDS 2 CAPS One tablet by mouth daily MULTIPLE VITAMINS-MINERALS [id number] Roosevelt Tesfaye MD Start: 11-19-2013 take 1 tablet by yissel th once daily PRESERVISION AREDS 2 CAPS One tablet by mouth daily MULTIPLE VITAMINS-MINERALS [id number] Roosevelt Tesfaye MD Start: 11-19-2013 End: 10-04-2015 take 1 tablet by mouth once daily PRESERVISION AREDS 2 CAPS One tablet by mouth daily MULTIPLE VITAMINS-MINERALS [id number] Roosevelt Tesfaye MD Start: 11-19-2013 PRESERVISION A REDS 2 CAPS 1 daily MULTIPLE VITAMINS-MINERALS [id number] Mitali Hagen PA-C MULTIPLE VITAMINS-MINERALS (7 sources) Start: 10-18-2016 take 1 tablet by mouth once daily ICAPS AREDS 2 CAPS One tablet by mouth daily MULTIPLE VITAMINS-MINERALS [id number] Roosevelt Tesfaye MD Start: 10-18-2016 take 1 tablet by yissel th once daily ICAPS AREDS 2 CAPS One tablet by mouth daily MULTIPLE VITAMINS-MINERALS [id number] Roosevelt Tesfaye MD MULTIPLE VITAMINS-MINERALS (6 sources) Start: 11-19-2013 take 1 tablet by mouth once daily PRESERVISION AREDS 2 CAPS One tablet by mouth daily MULTIPLE VITAMINS-MINERALS [id number] Roosevelt Tesfaye MD Start: 11-19-2013 End: 10-04-2015 take 1 tablet by mouth once daily PRESERVISION AREDS 2 CAPS One tablet by mouth daily MULTIPLE VITAMINS-MINERALS [id number] Roosevelt Tesfaye MD Start: 11-19-2013 PRESERVISION A REDS 2 CAPS 1 daily MULTIPLE VITAMINS-MINERALS [id number] Mitali Hagen PA-C nitrofurantoin, macrocrystals 25 mg / nitrofurantoin, monohydrate 75 mg oral capsule (16 sources) End: 03-19-2013 take 2 tablets by mouth once daily MACROBID 100 MG CAPS Two tablets by mouth daily for 10 days NITROFURANTOIN MONOHYD MACRO [id number] Mitali Hagen PA-C End: 03-19-2013 take 2 tablets by mouth once daily MACROBID 100 MG CAPS Two tablets by mouth daily for 10 days NITROFURANTOIN MONOHYD MACRO [id number] Mitali Hagen PA-C nitrofurantoin, macrocrystals 25 mg / nitrofurantoin, monohydrate 75 mg oral capsule (12 sources) Nitrofuran Antibacterial End: 03-19-2013 take 2 tablets by mouth once daily MACROBID 100 MG CAPS Two tablets by mouth daily for 10 days NITROFURANTOIN MONOHYD MACRO [id number] Vi Pulliam MD nystatin 100 unt/mg topical ointment (20 sources) Polyene Antifungal Start: 05-26-2012 End: 03-19-2013 NYSTATIN [id number] UNIT/GM OINT twice daily to affected skin NYSTATIN [id number] Vi Pulliam MD Start: 05-26-2012 End: 03-19-2013 NYSTATIN [id number] UNIT/GM OINT twice daily to affected skin NYSTATIN [id number] Vi Pulliam MD OMEGA-3 FATTY ACIDS (9 sources) Start: 11-19-2013 take 1 tablet by mouth once daily FISH OIL 1000 MG CAPS One tablet by mouth daily KANDICE-3 FATTY ACIDS [id number] Roosevlet Tesfaye MD Start: 11-19-2013 End: 10-04-2015 take 1 tablet by mouth once daily FISH OIL 1000 MG CAPS One tablet by mouth daily OMEGA-3 FATTY ACIDS [id number] Roosevelt Tesfaye MD Start: 11-19-2013 FISH OIL 1000 MG CAPS 1 daily OMEGA-3 FATTY ACIDS [id number] Mitali Hagen PA-C OMEGA-3 FATTY ACIDS CPDR (18 sources) Start: 10-18-2016 End: 12-17-2016 take 1 tablet by mouth once daily OMEGA 3 CPDR One tablet by mouth daily OMEGA-3 FATTY ACIDS CPDR [id number] Chad Woodard NP Start: 10-18-2016 take 1 tablet by yissel once daily OMEGA 3 CPDR One tablet by mouth daily OMEGA-3 FATTY ACIDS CPDR [id number] Roosevelt Tesfaye MD take 1 tablet by yissel th once daily OMEGA 3 CPDR 1200mg One tablet by mouth daily OMEGA-3 FATTY ACIDS CPDR [id number] Vi Pulliam MD End: 05-05-2013 take 1 tablet by mouth once daily OMEGA 3 CPDR 1200mg One tablet by mouth daily OMEGA-3 FATTY ACIDS CPDR [id number] Roosevelt Tesfaye MD OMEGA-3 FATTY ACIDS CPDR (20 sources) Start: 10-18-2016 take 1 tablet by mouth once daily OMEGA 3 CPDR One tablet by mouth daily OMEGA-3 FATTY ACIDS CPDR [id number] Roosevelt Tesfaye MD Start: 10-18-2016 End: 12-17-2016 take 1 tablet by mouth once daily OMEGA 3 CPDR One tablet by mouth daily OMEGA-3 FATTY ACIDS CPDR [id number] Chad Keiko Vance SAUCEDO Start: 10-18-2016 take 1 tablet by yissel th once daily OMEGA 3 CPDR One tablet by mouth daily OMEGA-3 FATTY ACIDS CPDR [id number] Roosevelt Tesfaye MD End: 05-05-2013 take 1 tablet by mouth once daily OMEGA 3 CPDR 1200mg One tablet by mouth daily OMEGA-3 FATTY ACIDS CPDR [id number] Roosevelt Tesfaye MD End: 05-05-2013 take 1 tablet by mouth once daily OMEGA 3 CPDR 1200mg One tablet by mouth daily OMEGA-3 FATTY ACIDS CPDR [id number] Roosevelt Tesfaye MD take 1 tablet by yissel th once daily OMEGA 3 CPDR 1200mg One tablet by mouth daily OMEGA-3 FATTY ACIDS CPDR [id number] Vi Pulliam MD 24 hr oxybutynin chloride 5 mg extended release oral tablet (20 sources) Cholinergic Muscarinic Antagonist Start: 11-15-2016 End: 12-19-2020 Start: 04-06-2016 take 1 tablet by yissel th once daily OXYBUTYNIN CHLORIDE 5 MG TABS One tablet by mouth daily OXYBUTYNIN CHLORIDE [id number] Mitali Hagen PA-C Start: 08-11-2013 End: 10-04-2015 take 1 tablet by mouth once daily OXYBUTYNIN CHLORIDE 5 MG TABS One tablet by mouth daily OXYBUTYNIN CHLORIDE [id number] Mitali Hagen PA-C Start: 08-11-2013 OXYBUTYNIN CHL ORIDE 5 MG TABS 10mg (ER) tablet once a day OXYBUTYNIN CHLORIDE [id number] Mitali Hagen PA-C phenazopyridine hydrochlorid e 100 mg oral tablet (20 sources) Start: 10-09-2021 End: 10-24-2021 polysaccharide iron complex 150 mg oral capsule (4 sources) Start: 08-02-2023 End: 03-16-2024 predniSONE 20 mg oral tablet (20 sources) Start: 01-20-2024 End: 01-29-2024 Start: 10-15-2021 End: 10-24-2021 Start: 10-15-2021 End: 10-24-2021 take 40 mg by mouth at breakfast Prednisone Discontinu ed 40 MG PO WITH BREAKFAST October 15, 2021 4:25pm October 24, 2021 6:21pm Start: 10-15-2021 End: 10-24-2021 rivaroxaban 20 mg oral tablet (20 sources) Factor Xa Inhibitor Start: 03-19-2013 End: 01-12-2014 take 1 tablet by mouth once daily XARELTO 20 MG TABS One tablet by mouth daily RIVAROXABAN [id number] Mitali Hagen PA-C sacubitril 24 mg / valsartan 26 mg oral tablet (20 sources) Angiotensin 2 Receptor Triny Start: 04-23-2022 End: 10-21-2023 Start: 04-23-2022 End: 04-26-2023 take 1 tablet by mouth twice daily Entresto 24 mg-26 mg oral tablet Dose = 1 tab(s), Oral, BID, 0 Refill(s) Start Date: 06/25/23 Status: Ordered Start: 04-23-2022 End: 04-26-2023 solifenacin succinate 10 mg oral tablet (6 sources) Cholinergic Muscarinic Antagonist Start: 12-17-2016 take 1 tablet by mouth once daily VESICARE 10 MG TABS One tablet by mouth daily SOLIFENACIN SUCCINATE [id number] Chad Woodard REGULATORY AFFAIRS ASSISTANT tamoxifen 20 mg oral tablet (20 sources) Estrogen Agonist/Antagonist End: 11-21-2016 take 1 tablet by mouth once daily TAMOXIFEN CITRATE 20 MG TABS One tablet by mouth daily TAMOXIFEN CITRATE [id number] [place] 24 hr tolterodine tartrate 4 mg extended release oral capsule (20 sources) Cholinergic Muscarinic Antagonist Start: 10-18-2016 End: 02-04-2018 Start: 10-18-2016 take 1 tablet by yissel th once daily DETROL LA 4 MG [id number] One tablet by mouth daily TOLTERODINE TARTRATE [id number] Roosevelt Tesfaye MD Start: 10-18-2016 take 1 tablet by yissel th once daily DETROL LA 4 MG [id number] One tablet by mouth daily TOLTERODINE TARTRATE [id number] Roosevelt Tesfaye MD vitamin b6 100 mg oral tablet (20 sources) End: 03-19-2013 take 1 tablet by mouth once daily VITAMIN B-6 100 MG TABS One tablet by mouth daily PYRIDOXINE HCL [id number] Mitali Hagen PA-C Problems Active Problems Problem Classification Problem Date Documented Da te Episodic/Chronic Acute and unspecified renal failure (1 source) Acute renal failure syndrome; Translations: [Acute kidney failure, unspecified] Episodic Bacterial infection (20 sources) Methicillin resistant Staphylococcus aureus infection; Translations: [Bacteremia] Onset: 05-26-2012 05-26-2012 Episodic Cancer of breast (20 sources) Malignant tumor of breast ; Translations: [Malignant neoplasm of unspecified site of unspecified female breast] Onset: 07-10-2023 03-20-2019 Chronic Cardiac dysrhythmias (20 sources) Atrial fibrillation; Translations: [Atrial flutter] Onset: 03-12-2013 03-12-2013 Chronic Chronic kidney disease (20 sources) Chronic kidney disease stage 3; Translations: [Stage 3 chronic kidney disease] Onset: 07-10-2023 Chronic Chronic kidney disease (1 source) Chronic kidney disease; Translations: [Chronic kidney disease, stage 3b] Onset: 09-25-2024 Chronic obstructive pulmonary disease and bronchiectasis (20 sources) Chronic obstructive lung disease; Translations: [Moderate chronic obstructive pulmonary disease] Onset: 01-16-2017 01-16-2017 Chronic Congestive heart failure; nonhypertensive (20 sources) Chronic diastolic heart failure; Translations: [Chronic diastolic (congestive) heart failure] Onset: 07-10-2023 Chronic Deficiency and other anemia (4 sources) Iron deficiency anemia; Translations: [Iron deficiency anemia, unspecified] 07-14-2024 Episodic Diabetes mellitus with complications (12 sources) Chronic kidney disease due to type 2 diabetes mellitus; Translations: [Type 2 diabetes mellitus with diabetic chronic kidney disease] Onset: 04-23-2024 Chronic Diabetes mellitus without complication (20 sources) Diabetes mellitus; Translations: [Type 2 diabetes mellitus without complications] Onset: 03-16-2013 03-16-2013 Chronic Disorders of lipid metabolism (20 sources) Hyperlipidemia; Translations: [Hyperlipidemia, unspecified] Onset: 03-16-2013 03-16-2013 Chronic Essential hypertension (20 sources) Hypertensive disorder; Translations: [Essential hypertension] Onset: 03-16-2013 03-31-2015 Chronic Genitourinary symptoms and ill-defined conditions (4 sources) Proteinuria; Translations: [Proteinuria, unspecified] 07-19-2023 Episodic Heart valve disorders (20 sources) Tricuspid incompetence, non-rheumatic ; Translations: [Nonrheumatic tricuspid (valve) insufficiency] Onset: 09-25-2024 03-20-2019 Chronic Hypertension with complications and secondary hypertension (3 sources) 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; Translations: [Hypertensive heart and chronic kidney disease with heart failure and stage 1 through stage 4 chronic kidney disease, or unspecified chronic kidney disease] Onset: 12-16-2023 Chronic Intestinal obstruction without hernia (7 sources) Infection-induced ileus; Translations: [Ileus, unspecified] Onset: 09-25-2024 07-07-2024 Episodic Malaise and fatigue (20 sources) Fatigue; Translations: [Other fatigue] Onset: 03-16-2013 03-16-2013 Episodic Nausea and vomiting (8 sources) Nausea and vomiting; Translations: [Nausea with vomiting, unspecified] 04-25-2024 Episodic Nonspecific chest pain (20 sources) Chest discomfort; Translations: [Chest pain] Onset: 05-18-2014 05-18-2014 Episodic Other aftercare (20 sources) Long-term current use of anticoagulant; Translations: [half-way (current) use of anticoagulants] 10-23-2021 Episodic Other aftercare (1 source) termite inspector (current) use of anticoagulants; Translations: [Long-term (current) use of anticoagulants] Episodic Other aftercare (6 sources) Drug therapy finding; Translations: [termite inspector (current) use of anticoagulants] 03-25-2024 Episodic Other aftercare (4 sources) Long-term current use of diuretic; Translations: [Encounter for therapeutic drug level monitoring] 05-06-2024 Episodic Other and ill-defined heart disease (20 sources) Diastolic dysfunction; Translations: [Other ill-defined heart diseases] 03-20-2019 Chronic Other connective tissue disease (1 source) Pain in right lower leg; Translations: [Pain in right lower leg] Onset: 07-13-2024 Episodic Other diseases of bladder and urethra (20 sources) Overactive bladder; Translations: [Overactive bladder] 11-02-2021 Chronic Other diseases of bladder and urethra (1 source) Overactive bladder; Translations: [Hypertonicity of bladder] Chronic Other infections; including parasitic (1 source) Unspecified infectious disease; Translations: [Unspecified infectious disease] Onset: 09-25-2024 Episodic Other injuries and conditions due to external causes (20 sources) Hypoxia; Translations: [Hypoxemia] Onset: 12-07-2016 12-07-2016 Episodic Other lower respiratory disease (20 sources) Dyspnea; Translations: [Hypoxia] Onset: 03-16-2013 03-16-2013 Episodic Other lower respiratory disease (20 sources) Dyspnea on exertion; Translations: [Dyspnea, unspecified] 10-30-2021 Episodic Other lower respiratory disease (1 source) Dyspnea, unspecified; Translations: [Other respiratory abnormalities] Episodic Other lower respiratory disease (2 sources) Hypoxemia; Translations: [Hypoxemia] Onset: 07-12-2023 Episodic Other nervous system disorders (8 sources) Disorder of brain; Translations: [Encephalopathy, unspecified] 06-30-2024 Chronic Other nervous system disorders (1 source) Encephalopathy, unspecified; Translations: [Encephalopathy, unspecified] Onset: 09-25-2024 Chronic Other non-epithelial cancer of skin (20 sources) Malignant neoplasm of skin; Translations: [Unspecified malignant neoplasm of skin, unspecified] Episodic Other non-traumatic joint disorders (20 sources) Hip pain; Translations: [Pain in right hip] Onset: 07-23-2014 07-23-2014 Episodic Other non-traumatic joint disorders (4 sources) Pain in left knee; Translations: [Left knee pain] 07-30-2023 Episodic Other nutritional; endocrine; and metabolic disorders (20 sources) Body mass index (BMI) 39.0-39.9, adult; Translations: [Body mass index (BMI) 37.0-37.9, adult] Onset: 05-05-2013 Resolved: 03-30-2015 03-30-2015 Chronic Other nutritional; endocrine; and metabolic disorders (18 sources) Body mass index (BMI) 37.0-37.9, adult; Translations: [Body mass index (BMI) 40.0-44.9, adult] Onset: 05-05-2013 Resolved: 05-18-2014 05-18-2014 Chronic Other nutritional; endocrine; and metabolic disorders (4 sources) Morbid obesity; Translations: [Morbid (severe) obesity due to excess calories] 07-19-2023 Chronic Other screening for suspected conditions (not mental disorders or infectious disease) (9 sources) Serum creatinine raised; Translations: [Other specified abnormal findings of blood chemistry] Onset: 09-25-2024 12-13-2023 Episodic Other skin disorders (20 sources) Actinic keratosis; Translations: [Actinic keratosis] 01-25-2021 Episodic Other skin disorders (20 sources) Skin lesion; Translations: [Disorder of the skin and subcutaneous tissue, unspecified] 05-22-2021 Episodic Other skin disorders (1 source) Actinic keratosis; Translations: [Actinic keratosis] Episodic Other skin disorders (3 sources) Disorder of the skin and subcutaneous tissue, unspecified; Translations: [Unspecified disorder of skin and subcutaneous tissue] Episodic Other upper respiratory disease (7 sources) Acute bronchospasm; Translations: [Acute bronchospasm] 04-05-2024 Episodic Pulmonary heart disease (20 sources) Pulmonary hypertension; Translations: [Pulmonary arterial hypertension] Onset: 12-07-2016 12-07-2016 Chronic Residual codes; unclassified (20 sources) Hypersomnia; Translations: [Hypersomnia, unspecified] 07-09-2017 Chronic Residual codes; unclassified (7 sources) Daytime hypersomnia; Translations: [Hypersomnia, unspecified] 04-01-2024 Chronic Residual codes; unclassified (1 source) Hypersomnia, unspecified; Translations: [Hypersomnia, unspecified] Onset: 04-01-2024 Chronic Respiratory failure; insufficiency; arrest (adult) (18 sources) Dependence on supplemental oxygen; Translations: [Dependence on supplemental oxygen] Onset: 07-10-2023 07-03-2023 Chronic Comment on above: PRN 2L Retinal detachments; defects; vascular occlusion; and retinopathy (4 sources) Degenerative disorder of macula ; Translations: [Unspecified macular degeneration] 07-19-2023 Chronic Septicemia (except in labor) (12 sources) Sepsis; Translations: [Sepsis, unspecified organism] Onset: 09-25-2024 Episodic Skin and subcutaneous tissue infections (20 sources) Cellulitis of lower leg; Translations: [Cellulitis of left lower limb] Onset: 12-05-2023 12-02-2023 Episodic Spondylosis; intervertebral disc disorders; other back problems (14 sources) Other and unspecified disc disorder, lumbar region; Translations: [Other and unspecified disc disorder of lumbar region] Onset: 07-23-2014 07-26-2014 Chronic Thyroid disorders (20 sources) Hypothyroidism; Translations: [Hypothyroidism, unspecified] Onset: 07-10-2023 Chronic Unclassified (1 source) Longstanding persistent atrial fibrillation; Translations: [Longstanding persistent atrial fibrillation] Onset: 02-26-2024 Unclassified (1 source) Ventricular tachycardia, unspecified; Translations: [Ventricular tachycardia, unspecified] Onset: 02-26-2024 Past or Other Problems Problem Classification Problem Date Documented Date Episodic/Chronic Mycoses (20 sources) Candidal vulvovaginitis; Translations: [Candidiasis of skin] Onset: 05-26-2012 Resolved: 05-26-2012 05-26-2012 Episodic Open wounds of extremities (1 source) Unspecified open wound, left foot, initial encounter; Translations: [Unspecified open wound, left foot, initial encounter] Onset: 12-20-2023 Episodic Other aftercare (1 source) Encounter for therapeutic drug level monitoring; Translations: [Encounter for therapeutic drug level monitoring] Onset: 05-28-2024 Episodic Other and unspecified benign neoplasm (14 sources) Other benign neoplasm of skin, unspecified; Translations: [Other benign neoplasm of skin, unspecified] Onset: 03-29-2009 03-29-2009 Episodic Other circulatory disease (14 sources) Elevated blood-pressure reading, without diagnosis of hypertension; Translations: [Elevated blood-pressure reading, without diagnosis of hypertension] Onset: 03-30-2015 03-31-2015 Episodic Other connective tissue disease (1 source) Pain in left leg; Translations: [Pain in left leg] Onset: 12-20-2023 Episodic Other lower respiratory disease (20 sources) Other forms of dyspnea; Translations: [Other respiratory abnormalities] Onset: 11-19-2023 Episodic Other lower respiratory disease (1 source) Shortness of breath; Translations: [Shortness of breath] Onset: 05-04-2024 Episodic Other skin disorders (1 source) Localized swelling, mass and lump, unspecified lower limb; Translations: [Localized swelling, mass and lump, unspecified lower limb] Onset: 12-20-2023 Episodic Pleurisy; pneumothorax; pulmonary collapse (20 sources) Pleural effusion; Translations: [Pleural effusion, not elsewhere classified] Onset: 07-10-2023 01-25-2023 Episodic Pneumonia (except that caused by tuberculosis or sexually transmitted disease) (20 sources) Left lower zone pneumonia; Translations: [Pneumonia, unspecified organism] Onset: 05-04-2024 Episodic Residual codes; unclassified (6 sources) FH: Hypertension; Translations: [Family history of ischemic heart disease and other diseases of the circulatory system] 08-13-2013 Episodic Residual codes; unclassified (4 sources) Hypersomnia; Translations: [Hypersomnia, unspecified] Onset: 12-07-2016 12-07-2016 Episodic Residual codes; unclassified (5 sources) Other specified health status; Translations: [Failure of outpatient treatment] Onset: 12-05-2023 12-13-2023 Episodic Residual codes; unclassified (1 source) Chills (without fever); Translations: [Chills (without fever)] Onset: 05-08-2024 Episodic Respiratory failure; insufficiency; arrest (adult) (20 sources) Acute respiratory failure; Translations: [Acute respiratory failure with hypoxia] Onset: 03-19-2024 Episodic Spondylosis; intervertebral disc disorders; other back [...] Results Test Name Value Interpretation Reference Range Facility Anion gap in Serum or Plasma Ordered By: Viry Reveles on 08-11-2024 Anion gap [Moles/Vol] 12 mmol/L 5- [facility] BUN/creatinine ratioOrdered By: Viry Reveles on 08-11-2024 Urea nitrogen/Creatinine [Mass ratio] 14.8 mg/mg 01-04 [facility] Carbon dioxide, total [Moles /volume] in Central venous bloodOrdered By: Viry Reveles on 08-11-2024 CO2 [Moles/Vol] 25.8 mmol/L 21.0-32.0 [facility] Chloride assayOrdered By: John Reveles on 08-11-2024 Chloride [Moles/Vol] 96 mmol/L Low 98-108 [facility] Glomerular filtration rate ( GFR) estimation/1.73 sq m using serum, plasma, or whole bOrdered By: Viry Reveles on 08-11-2024 GFR/1.73 sq M.predicted among non-blacks MDRD (S/P/Bld) [Vol rate/Area] 21 mL/min/{1.73_m2} Low >60 [facility] Potassium measurement (mass/ volume)Ordered By: Viry Reveles on 08-11-2024 Potassium (Unsp spec) [Mass/Vol] 4.8 mmol/L 3.3-5.1 [facility] Serum creatinine measurement (mass/volume)Ordered By: Viry Reveles on 08-11-2024 Creatinine [Mass/Vol] 2.21 mg/dL High 0.70-1.20 [facility] Serum glucose measurement (m ass/volume)Ordered By: Viry Reveles on 08-11-2024 Glucose [Mass/Vol] 414 mg/dL High 70-[address] [facility] Serum or plasma calcium bob urement (mass/volume)Ordered By: Viry Reveles on 08-11-2024 Calcium [Mass/Vol] 9.5 mg/dL 7.6-11.[address] [facility] Serum or plasma urea nitroge n measurement (mass/volume)Ordered By: Viry Reveles on 08-11-2024 Urea nitrogen [Mass/Vol] 33 mg/dL High 4-19 [facility] Sodium levelOrdered By: Doreen Reveles on 08-11-2024 Sodium [Moles/Vol] 134 mmol/L 133-[address] [facility] Absolute lymphocyte countOrd ered By: Alexy Douglas on 07-14-2024 Lymphocytes Auto (Unsp spec) [#/Vol] 1.17 10*3/uL 0.83-4.51 [facility] Anion gap in Serum or Plasma Ordered By: Alexy Douglas on 07-14-2024 Anion gap [Moles/Vol] 11 mmol/L 5-15 [facility] Automated lymphocyte count a s percentage of total leukocytesOrdered By: Alexy Douglas on 07-14-2024 Lymphocytes/100 WBC Auto (Unsp spec) 10.5 % Low 19-41 [facility] BUN/creatinine ratioOrdered By: Alexy Douglas on 07-14-2024 Urea nitrogen/Creatinine [Mass ratio] 21.3 mg/mg High 10-20 [facility] Basophil percentageOrdered B y: Alexy Douglas on 07-14-2024 Basophils/100 WBC (Bld) 0.4 % 0-1 [facility] Carbon dioxide, total [Moles /volume] in Central venous bloodOrdered By: Alexy Douglas on 07-14-2024 CO2 [Moles/Vol] 26.0 mmol/L 21.0-32.0 [facility] Chloride assayOrdered By: Lew Douglas on 07-14-2024 Chloride [Moles/Vol] 105 mmol/L 98-108 [facility] Eosinophil percentageOrdered By: Alexy Douglas on 07-14-2024 Eosinophils/100 WBC (Bld) 1.6 % 0-5 [facility] Erythrocyte distribution wid th ratioOrdered By: Alexy Douglas on 07-14-2024 Erythrocyte distribution width (RBC) [Ratio] 15.3 % High 11.6-14.6 [facility] Erythrocyte distribution wid th standard deviationOrdered By: Alexy Douglas on 07-14-2024 Erythrocyte distribution width (RBC) [Ratio] 50.8 fl High 35.1-43.9 [facility] Glomerular filtration rate ( GFR) estimation/1.73 sq m using serum, plasma, or whole bOrdered By: Alexy Douglas on 07-14-2024 GFR/1.73 sq M.predicted among non-blacks MDRD (S/P/Bld) [Vol rate/Area] 32 mL/min/{1.73_m2} Low >60 [facility] Glucose measurement at [facility] deOrdered By: Alexy Douglas on 07-14-2024 Glucose [Mass/Vol] 154 mg/dL High 74-[address] [facility] Hematocrit Auto (Bld) [Volum e fraction]Ordered By: Alexy Douglas 07-14-2024 Hematocrit (Bld) [Volume fraction] 30.0 % Low 37-47 [facility] Hemoglobin measurementOrdere d By: Alexy Douglas 07-14-2024 Hemoglobin (Bld) [Mass/Vol] 9.4 g/dL Low 12.0-15. 0 [facility] Immature granulocytes/100 WB C Auto (Bld)Ordered By: Alexy Douglas 07-14-2024 Immature granulocytes/100 WBC (Bld) 2.100 % High 0.0-0.9 [facility] MCV (mean corpuscular volume ) determinationOrdered By: Alexy Douglas 07-14-2024 MCV (RBC) [Entitic vol] 91.5 fL 81-99 [facility] Mean corpuscular hemoglobin (MCH) determinationOrdered By: Alexy Douglas 07-14-2024 MCH (RBC) [Entitic mass] 28.7 pg 27.0-32.0 [facility] Monocyte percentageOrdered B y: Alexy Douglas 07-14-2024 Monocytes/100 WBC (Bld) 6.4 % 0-10 [facility] Neutrophil percentageOrdered By: Alexy Douglas 07-14-2024 Neutrophils/100 WBC (Bld) 79.0 % High 47-70 [facility] Platelet countOrdered By: Lew Douglas on 07-14-2024 Platelets (Bld) [#/Vol] 322 10*3/uL 150-450 [facility] Potassium measurement (mass/ volume)Ordered By: Alexy Douglas on 07-14-2024 Potassium (Unsp spec) [Mass/Vol] 4.5 mmol/L 3.3-5.1 [facility] RBC Auto (Bld) [#/Vol]Ordere d By: Alexy Douglas on 07-14-2024 RBC (Bld) [#/Vol] 3.28 10*6/uL Low 4.2-5.4 [facility] Serum creatinine measurement (mass/volume)Ordered By: Alexy Douglas on 07-14-2024 Creatinine [Mass/Vol] 1.57 mg/dL High 0.70-1.20 [facility] Serum glucose measurement (m ass/volume)Ordered By: Alexy Douglas 07-14-2024 Glucose [Mass/Vol] 121 mg/dL High 70-[address] [facility] Serum or plasma calcium bob urement (mass/volume)Ordered By: Alexy Douglas 07-14-2024 Calcium [Mass/Vol] 9.1 mg/dL 7.6-11.[address] [facility] Serum or plasma urea nitroge n measurement (mass/volume)Ordered By: Alexy Douglas on 07-14-2024 Urea nitrogen [Mass/Vol] 34 mg/dL High 4-19 [facility] Sodium levelOrdered By: Alexy Douglas 07-14-2024 Sodium [Moles/Vol] 142 mmol/L 133-[address] [facility] White blood cell (WBC) count Ordered By: Alexy Douglas on 07-14-2024 WBC (Bld) [#/Vol] 11.2 10*3/uL High 4.4-11.0 [facility] Natriuretic peptide.B prohor toñito N-Terminal [Mass/volume] in Serum or PlasmaOrdered By: Alexy Douglas on 07-08-2024 Natriuretic peptide.B prohormone N-Terminal [Mass/Vol] 9922 pg/mL High <1800 [facility] Blood band neutrophil count as percentage of total leukocytesOrdered By: Alexy Douglas on 04-22-2025 Band form neutrophils/100 WBC (Bld) 1 % 0-5 [facility] Blood eosinophils/100 leukoc ytesOrdered By: Alexy Douglas on 07-07-2024 Eosinophils/100 WBC (Bld) 3 % 0-5 [facility] Blood lymphocytes/100 leukoc ytesOrdered By: Alexy Douglas on 07-07-2024 Lymphocytes/100 WBC (Bld) 11 % Low 19-41 [facility] Blood monocytes/100 leukocyt esOrdered By: Alexy Douglas on 07-07-2024 Monocytes/100 WBC (Bld) 3 % 0-10 [facility] Blood segmented neutrophils/ 100 leukocytesOrdered By: Alexy Douglas on 07-07-2024 Segmented neutrophils/100 WBC (Bld) 82 % High 47-70 [facility] Erythrocyte morphology asses smentOrdered By: Alexy Douglas on 07-07-2024 RBC morphology finding Nom (Bld) NORM C+C NORMAL NORM C&C [facility] Platelet estimateOrdered By: Alexy Douglas on 07-07-2024 Platelets LM Ql (Bld) ADEQUATE ADEQ [facility] Review by pathologistOrdered By: Alexy Douglas on 07-07-2024 Pathologist review Husam (Unsp spec) [Interp] Reviewed [facility] Total cell countOrdered By: Alexy Douglas on 07-07-2024 Cells counted Molgen (Bld/Tiss) [#] 100 MANUAL DIFF [facility] Absolute lymphocyte countOrd ered By: Oksana Coon on 07-06-2024 Lymphocytes Auto (Unsp spec) [#/Vol] 0.61 10*3/uL Low 0.83-4.51 [facility] Anion gap in Serum or Plasma Ordered By: Oksana Coon on 07-06-2024 Anion gap [Moles/Vol] 12 mmol/L 5-15 [facility] Automated lymphocyte count a s percentage of total leukocytesOrdered By: Oksana Coon on 07-06-2024 Lymphocytes/100 WBC Auto (Unsp spec) 7.3 % Low 19-41 [facility] BUN/creatinine ratioOrdered By: Oksana Coon on 07-06-2024 Urea nitrogen/Creatinine [Mass ratio] 17.8 mg/mg 10-20 [facility] Basophil percentageOrdered B y: Oksana Coon on 07-06-2024 Basophils/100 WBC (Bld) 0.5 % 0-1 [facility] Carbon dioxide, total [Moles /volume] in Central venous bloodOrdered By: Oksana Coon on 07-06-2024 CO2 [Moles/Vol] 20.3 mmol/L Low 21.0-32.0 [facility] Chloride assayOrdered By: Na na Shaggy on 07-06-2024 Chloride [Moles/Vol] 105 mmol/L 98-108 [facility] Eosinophil percentageOrdered By: Oksana Coon on 07-06-2024 Eosinophils/100 WBC (Bld) 1.4 % 0-5 [facility] Erythrocyte distribution wid th ratioOrdered By: Oksana Coon on 07-06-2024 Erythrocyte distribution width (RBC) [Ratio] 15.5 % High 11.6-14.6 [facility] Erythrocyte distribution wid th standard deviationOrdered By: Oksana Coon on 07-06-2024 Erythrocyte distribution width (RBC) [Ratio] 50.9 fl High 35.1-43.9 [facility] Glomerular filtration rate ( GFR) estimation/1.73 sq m using serum, plasma, or whole bOrdered By: Oksana Coon on 07-06-2024 GFR/1.73 sq M.predicted among non-blacks MDRD (S/P/Bld) [Vol rate/Area] 24 mL/min/{1.73_m2} Low >60 [facility] [place] Glucose measurement at [facility] deOrdered By: Jabari Hobbs on 07-06-2024 Glucose [Mass/Vol] 184 mg/dL High 74-[address] [facility] Hematocrit Auto (Bld) [Volum e fraction]Ordered By: Oksana Coon on 07-06-2024 Hematocrit (Bld) [Volume fraction] 28.0 % Low 37-47 [facility] Hemoglobin measurementOrdere d By: Oksana Coon on 07-06-2024 Hemoglobin (Bld) [Mass/Vol] 8.8 g/dL Low 12.0-15. 0 [facility] Immature granulocytes/100 WB C Auto (Bld)Ordered By: Oksana Coon on 07-06-2024 Immature granulocytes/100 WBC (Bld) 1.900 % High 0.0-0.9 [facility] MCV (mean corpuscular volume ) determinationOrdered By: Oksana Coon on 07-06-2024 MCV (RBC) [Entitic vol] 91.5 fL 81-99 [facility] Mean corpuscular hemoglobin (MCH) determinationOrdered By: Oksana Coon on 07-06-2024 MCH (RBC) [Entitic mass] 28.8 pg 27.0-32.0 [facility] Monocyte percentageOrdered B y: Oksana Coon on 07-06-2024 Monocytes/100 WBC (Bld) 7.6 % 0-10 [facility] Neutrophil percentageOrdered By: Oksana Coon on 07-06-2024 Neutrophils/100 WBC (Bld) 81.3 % High 47-70 [facility] Platelet countOrdered By: Lindy Coon on 07-06-2024 Platelets (Bld) [#/Vol] 224 10*3/uL 150-450 [facility] Potassium measurement (mass/ volume)Ordered By: Oksana Coon on 07-06-2024 Potassium (Unsp spec) [Mass/Vol] 4.7 mmol/L 3.3-5.1 [facility] RBC Auto (Bld) [#/Vol]Ordere d By: Oksana Coon on 07-06-2024 RBC (Bld) [#/Vol] 3.06 10*6/uL Low 4.2-5.4 [facility] Serum creatinine measurement (mass/volume)Ordered By: Oksana Coon on 07-06-2024 Creatinine [Mass/Vol] 1.98 mg/dL High 0.70-1.20 [facility] Serum glucose measurement (m ass/volume)Ordered By: Oksana Coon on 07-06-2024 Glucose [Mass/Vol] 188 mg/dL High 70-[address] [facility] Serum or plasma calcium bob urement (mass/volume)Ordered By: Oksana Coon on 07-06-2024 Calcium [Mass/Vol] 8.6 mg/dL 7.6-11.[address] [facility] Serum or plasma urea nitroge n measurement (mass/volume)Ordered By: Oksana Coon on 04-21-2025 Urea nitrogen [Mass/Vol] 35 mg/dL High 4-19 [facility] Sodium levelOrdered By: Oksana Coon on 07-06-2024 Sodium [Moles/Vol] 137 mmol/L 133-[address] [facility] White blood cell (WBC) count Ordered By: Oksana Coon on 07-06-2024 WBC (Bld) [#/Vol] 8.4 10*3/uL 4.4-11.[address] [facility] Blood manual differential co mment interpretation (narrative result)Ordered By: Oksana Coon on 07-05-2024 Manual differential comment Husam (Bld) [Interp] SCANNED [facility] Serum or plasma vancomycin m easurement (mass/volume)Ordered By: Liz Griffin on 07-05-2024 Vancomycin [Mass/Vol] 21.5 ug/mL High 0.0-15.0 [facility] Magnesium measurement (mass/ volume)Ordered By: Oksana Coon on 07-04-2024 Magnesium (Unsp spec) [Mass/Vol] 2.1 mg/dL 1.5-2.2 [facility] Trough vancomycin levelOrder ed By: Liz Griffin on 07-04-2024 Vancomycin trough [Mass/Vol] 24.8 ug/mL High 5.0-15.0 [facility] Bilirubin, totalOrdered By: Liz Griffin on 07-01-2024 Bilirubin [Mass/Vol] 0.49 mg/dL 0.00-1.30 [facility] Blood vacuolated neutrophils detection by light microscopyOrdered By: Liz Griffin on 07-01-2024 Neutrophils.vacuolated LM Ql (Bld) 1+ [facility] Calculated very low density lipoprotein (VLDL) cholesterol measurementOrdered By: Liz Griffin on 07-01-2024 Calculated very low density lipoprotein (VLDL) cholesterol measurement 18 mg/dL 5-40 [facility] Erythrocyte morphology asses smentOrdered By: Lzi Griffin on 07-01-2024 RBC morphology finding Nom (Bld) NORM C+C NORMAL NORM C&C [facility] LDL calc ser/plasOrdered By: Liz Griffin on 07-01-2024 Cholesterol in LDL [Mass/Vol] 34 mg/dL [facility] No Panel InformationOrdered By: Liz Griffin on 07-01-2024 12 U/L <32 [facility] Platelet estimateOrdered By: Liz Griffin on 07-01-2024 Platelets LM Ql (Bld) ADEQUATE ADEQ [facility] Serum globulin measurementOr dered By: Liz Griffin on 07-01-2024 Globulin (S) [Mass/Vol] 2.5 g/dL 2.2-4.2 [facility] Serum or plasma alanine sierra otransferase (ALT) measurementOrdered By: Liz Griffin on 07-01-2024 ALT [Catalytic activity/Vol] 11 U/L <35 [facility] Serum or plasma albumin bob urement (mass/volume)Ordered By: Liz Griffin on 07-01-2024 Albumin [Mass/Vol] 2.8 g/dL Low 3.4-4.[address] [facility] Serum or plasma albumin/glob ulin mass ratioOrdered By: Liz Elias 07-01-2024 Albumin/Globulin [Mass ratio] 1.1 {ratio} 0.9-2.4 [facility] Serum or plasma alkaline marco antonio sphatase measurementOrdered By: Liz Griffin 07-01-2024 ALP [Catalytic activity/Vol] 70 U/L 35-104 [facility] Serum or plasma cholesterol in HDL measurement (mass/volume)Ordered By: Ilz Elias 07-01-2024 Cholesterol in HDL [Mass/Vol] 51 mg/dL >40 [facility] Serum or plasma cholesterol measurement (mass/volume)Ordered By: Liz Griffin 07-01-2024 Cholesterol [Mass/Vol] 103 mg/dL <201 [facility] TSH DL <= 0.005 mIU/L QnOrde red By: Liz Griffin on 07-01-2024 TSH Qn 2.640 uIU/mL 0.300-4.20 0 [facility] Total proteinOrdered By: Aut umn Elias on 07-01-2024 Protein [Mass/Vol] 5.4 g/dL Low 5.9-8.[address] [facility] Absolute neutrophil countOrd ered By: Torrey Chavez on 06-30-2024 Absolute neutrophil count 8.5 X10^3/uL High 2.0-7.7 [facility] Anion gap [Moles/Vol]Ordered By: Torrey Chavez on 06-30-2024 Anion gap in Serum or Plasma 15 5-15 [facility] BUN/creatinine ratioOrdered By: Torrey Chavez on 06-30-2024 BUN/creatinine ratio 15.6 RATIO 10-20 [facility] Base excess Calc (BldV) [Mol es/Vol]Ordered By: Tres Cronin on 06-30-2024 Blood base excess determination 2 mmol/L -2-2 [facility] Basophil percentageOrdered B y: Torrey Chavez on 06-30-2024 Basophil percentage 0.6 % 0-1 [facility] Bilirubin Test strip Ql (U)O rdered By: Torrey Chavez on 06-30-2024 Bilirubin Ql (U) Negative Negative [facility] Blood base excess determinat ionOrdered By: Tres Cronin on 06-30-2024 Base excess Calc (BldV) [Moles/Vol] 2 mmol/L -2-2 [facility] Blood bicarbonate measuremen tOrdered By: Tres Cronin on 06-30-2024 HCO3 (Bld) [Moles/Vol] 25.1 mmol/L - [facility] Blood bicarbonate measurement 25.1 mmol/L [facility] Blood cultureOrdered By: Ilene Chavez on 06-30-2024 Bacteria identified Cx Nom (Bld) Acinetobacter Lwoffi Abnormal [facility] Bacteria identified Cx Nom (Bld) No growth in 5 days. [facility] Blood polychromasia detectio n by light microscopyOrdered By: Torrey Chavez on 06-30-2024 Polychromasia LM Ql (Bld) 1+ [facility] Blood polychromasia detection by light microscopy 1+ [facility] CK [Catalytic activity/Vol]O rdered By: Torrey Chavez on 06-30-2024 Serum or plasma creatine kinase activity 66 U/L 24-195 [facility] Calcium [Mass/Vol]Ordered By : Torrey Chavez on 06-30-2024 Serum or plasma calcium measurement (mass/volume) 9.2 mg/dL 7.6-11.[address] [facility] Carbon dioxide, total [Moles /volume] in Central venous bloodOrdered By: Torrey Chavez on 06-30-2024 Carbon dioxide, total [Moles/volume] in Central venous blood 21.6 mmol/L 21.0-32.0 [facility] Chloride assayOrdered By: Ashley Chavez on 06-30-2024 Chloride assay 99 mmol/L 98-108 [facility] Clarity (U)Ordered By: Torrey Chavez on 06-30-2024 Urine clarity Clear Clear [facility] Coarse Granular Casts LM Ql (Urine sed)Ordered By: Torrey Chavez on 06-30-2024 Urine coarse granular cast detection 10-25 SEEN /lpf 0-5 /lpf [facility] Color (U)Ordered By: Torrey bowers on 06-30-2024 Urine color determination Yellow Yellow [facility] Creatinine [Mass/Vol]Ordered By: Torrey Chavez on 06-30-2024 Serum creatinine measurement (mass/volume) 1.73 mg/dL High 0.70-1.[address] [facility] Determination of fraction of inspired oxygenOrdered By: Tres Cronin on 06-30-2024 Determination of fraction of inspired oxygen 4.0 [facility] Eosinophil percentageOrdered By: Torrey Chavez on 06-30-2024 Eosinophil percentage 0.0 % 0-5 [facility] Epithelial cells.squamous LM Ql (Urine sed)Ordered By: Torrey Chavez on 06-30-2024 Squamous epithelial cells detection in urine sediment by light microscopy 0-5 SEEN /hpf 5-10 [facility] Erythrocyte distribution wid th (RBC) [Ratio]Ordered By: Torrey Chavez on 06-30-2024 Erythrocyte distribution width ratio 15.4 % High 11.6-14.6 [facility] Erythrocyte distribution width standard deviation 50.9 fl High 35.1-43.9 [facility] Estimation of creatinine cristóbal aranceOrdered By: Torrey Chavez on 06-30-2024 Estimation of creatinine clearance 32.21 ml/min Low 50-250 [facility] GFR/1.73 sq M.predicted nichole g non-blacks MDRD (S/P/Bld) [Vol rate/Area]Ordered By: Torrey Chavez on 06-30-2024 Glomerular filtration rate (GFR) estimation/1.73 sq m using serum, plasma, or whole b 29 Low >60 [facility] Glucose Ql (U)Ordered By: Ashley Chavez on 06-30-2024 Urine glucose detection 250 mg/dl High Normal [facility] Glucose [Mass/Vol]Ordered By : Torrey Chavez on 06-30-2024 Serum glucose measurement (mass/volume) 271 mg/dL High 70-99 [facility] Gram stainOrdered By: Liz Griffin on 06-30-2024 Microscopic observation Gram stain Nom (Unsp spec[facility] Hemat[facility] Auto (Bld) [Volum e fraction]Ordered By: Torrey Chavez on 06-30-2024 Automated blood hematocrit (percentage) 36.5 % Low 37-47 [facility] Hemoglobin measurementOrdere d By: Torrey Chavez on 06-30-2024 Hemoglobin measurement 11.7 g/dL Low 12.0-15.0 [facility] Hyaline casts LM.LPF (Urine sed) [#/Area]Ordered By: Torrey Chavez on 06-30-2024 Hyaline casts (Urine sed) [#/Area] 0 /[LPF] 0-5 [facility] Immature granulocytes/100 WB C Auto (Bld)Ordered By: Torrey Chavez on 06-30-2024 Automated immature granulocyte percentage 0.800 % 0.0-0.9 [facility] Influenza virus A and B and SARS-CoV-2 (COVID-19) and Respiratory syncytial virus RNAOrdered By: Torrey Chavez on 06-30-2024 SARS-CoV-2 (COVID-19) RNA ROSINA+probe Ql (Unsp spec) [facility] Ketones Test strip Ql (U)Ord ered By: Torrey Chavez on 06-30-2024 Ketones Ql (U) Negative Negative [facility] Lactic acid measurementOrder ed By: Torrey Chavez on 06-30-2024 Lactic acid measurement 1.8 mmol/L 0.0-2.0 [facility] Lymphocytes Auto (Unsp spec) [#/Vol]Ordered By: Torrey Chavez on 06-30-2024 Absolute lymphocyte count 0.46 X10^3/uL Low 0.83-4. 51 [facility] Lymphocytes/100 WBC Auto (Un sp spec)Ordered By: Torrey Chaevz on 06-30-2024 Automated lymphocyte count as percentage of total leukocytes 4.6 % Low 19-41 [facility] MCV (RBC) [Entitic vol]Order ed By: Torrey Chavez on 06-30-2024 MCV (mean corpuscular volume) determination 90.3 fL 81-99 [facility] Magnesium (Unsp spec) [Mass/ Vol]Ordered By: Liz Griffin on 06-30-2024 Magnesium measurement (mass/volume) 1.7 mg/dL 1.5-2.2 [facility] Mean corpuscular hemoglobin (MCH) determinationOrdered By: Torrey Chavez on 06-30-2024 Mean corpuscular hemoglobin (MCH) determination 29.0 pg 27.0-32.0 [facility] Mean corpuscular hemoglobin concentration (MCHC) determinationOrdered By: Torrey Chavez on 06-30-2024 Mean corpuscular hemoglobin concentration (MCHC) determination 32.1 g/dL 32-36 [facility] Mean platelet volume determi nationOrdered By: Torrey Chavez on 06-30-2024 Mean platelet volume determination 10.8 fl 6.2-12.0 [facility] Measurement, pHOrdered By: Stefan Cronin on 06-30-2024 pH (Unsp spec) 7.50 [pH] High 7.35-7.45 [facility] Microscopic analysis of urin e for red blood cells (RBC)Ordered By: Torrey Chavez on 06-30-2024 Microscopic analysis of urine for red blood cells (RBC) 0 SEEN /hpf [facility] Monocyte percentageOrdered B y: Torrey Chavez on 06-30-2024 Monocyte percentage 8.2 % 0-10 [facility] Mucus LM Ql (Urine sed)Order ed By: Torrey Chavez on 06-30-2024 Mucus Ql (Urine sed) 0 SEEN /hpf [facility] Natriuretic peptide.B prohor toñito N-Terminal [Mass/Vol]Ordered By: Torrey Chavez on 06-30-2024 Natriuretic peptide.B prohormone N-Terminal [Mass/volume] in Serum or Plasma 82222 pg/mL High <1800 [facility] Natriuretic peptide.B prohor toñito N-Terminal [Mass/volume] in Serum or PlasmaOrdered By: Torrey Chavez on 06-30-2024 Natriuretic peptide.B prohormone N-Terminal [Mass/Vol] 03309 pg/mL High <1800 [facility] Neutrophil percentageOrdered By: Torrey Chavez on 06-30-2024 Neutrophil percentage 85.8 % High 47-70 [facility] Nitrite Test strip Ql (U)Ord ered By: Torrey Chavez on 06-30-2024 Nitrite Ql (U) Negative Negative [facility] No Panel InformationOrdered By: Tres Cronin on 06-30-2024 ART [facility] L Brach [facility] Not entered [facility] Cannula [facility] Nucleated red blood cell per centageOrdered By: Torrey Chavez on 06-30-2024 Nucleated red blood cell percentage 0 % 0-5 [facility] Oxygen saturation measuremen tOrdered By: Tres Cronin on 06-30-2024 Oxygen saturation measurement 98 % 95-99 [facility] Partial pressure of carbon d ioxide measurementOrdered By: Tres Cronin on 06-30-2024 Partial pressure of carbon dioxide measurement 32.0 mmHg Low 35-45 [facility] Partial pressure of oxygen m easurementOrdered By: Tres Cronin on 06-30-2024 Partial pressure of oxygen measurement 98 mmHG 75-100 [facility] Platelet countOrdered By: Ashley Chavez on 06-30-2024 Platelet count 216 K/mm3 150-450 [facility] Platelets LM Ql (Bld)Ordered By: Torrey Chavez on 06-30-2024 Platelet estimate ADEQUATE ADEQ [facility] Potassium (Unsp spec) [Mass/ Vol]Ordered By: Torrey Chavez on 06-30-2024 Potassium measurement (mass/volume) 4.6 mmol/L 3.3-5.1 [facility] Procalcitonin IA [Mass/Vol]O rdered By: Torrey Chavez on 06-30-2024 Procalcitonin [Mass/volume] in Serum or Plasma by Immunoassay 0.73 ng/mL High <0.11 [facility] Procalcitonin [Mass/volume] in Serum or Plasma by ImmunoassayOrdered By: Torrey Chavez on 06-30-2024 Procalcitonin IA [Mass/Vol] 0.73 ng/mL High <0.11 [facility] Protein Test strip Ql (U)Ord ered By: Torrey Chavez on 06-30-2024 Protein Ql (U) 500 mg/dl High Negative [facility] Urine protein assay by test strip, semi-quantitative 500 mg/dl High Negative [facility] RBC Auto (Bld) [#/Vol]Ordere d By: Torrey Chavez on 06-30-2024 Automated blood erythrocyte count 4.04 M/mm3 Low 4.2-5.4 [facility] Routine wound cultureOrdered By: Liz Griffin on 06-30-2024 Microbial culture, routine Stenotrophomo ren maltophilia Abnormal [facility] Serum or plasma creatine kin ase activityOrdered By: Torrey Chavez on 06-30-2024 CK [Catalytic activity/Vol] 66 U/L 24-195 [facility] Sodium levelOrdered By: Torrey Chavez on 06-30-2024 Sodium level 136 mmol/L 133-145 [facility] Specific gravity (U) [Rel de nsity]Ordered By: Torrey Chavez on 06-30-2024 Urine specific gravity measurement 1.020 1.002-1.03 0 [facility] Squamous epithelial cells de tection in urine sediment by light microscopyOrdered By: Torrey Chavez on 06-30-2024 Epithelial cells.squamous LM Ql (Urine sed) 0-5 SEEN /hpf 5-10 [facility] Total carbon dioxide measure mentOrdered By: Tres Cronin on 06-30-2024 CO2 [Moles/Vol] 26 mmol/L [facility] Total carbon dioxide measurement 26 mmol/L [facility] Troponin T.cardiac High sens itivity method [Mass/Vol]Ordered By: Torrey Chavez on 06-30-2024 Troponin T.cardiac [Mass/volume] in Serum or Plasma by High sensitivity method 123 ng/L High <14 [facility] Troponin T.cardiac [Mass/volume] in Serum or Plasma by High sensitivity method 137 ng/L High <14 [facility] Troponin T.cardiac [Mass/volume] in Serum or Plasma by High sensitivity method 155 ng/L High <14 [facility] Troponin T.cardiac [Mass/vol ume] in Serum or Plasma by High sensitivity methodOrdered By: Torrey Chavez on 06-30-2024 Troponin T.cardiac High sensitivity method [Mass/Vol] 123 ng/L High <14 [facility] Troponin T.cardiac High sensitivity method [Mass/Vol] 137 ng/L High <14 [facility] Troponin T.cardiac High sensitivity method [Mass/Vol] 155 ng/L High <14 [facility] Urea nitrogen [Mass/Vol]Orde red By: Torrey Chavez on 06-30-2024 Serum or plasma urea nitrogen measurement (mass/volume) 27 mg/dL High 4-19 [facility] Urine blood detectionOrdered By: Torrey Chavez on 06-30-2024 Urine blood detection 25 /ul High Negative [facility] Urine clarityOrdered By: Ilene Chavez on 06-30-2024 Clarity (U) Clear Clear [facility] Urine coarse granular cast d etectionOrdered By: Torrey Chavez on 06-30-2024 Coarse Granular Casts LM Ql (Urine sed) 10-25 SEEN /lpf 0-5 /lpf [facility] Urine color determinationOrd ered By: Torrey Chavez on 06-30-2024 Color (U) Yellow Yellow [facility] Urine glucose detectionOrder ed By: Torrey Chavez on 06-30-2024 Glucose Ql (U) 250 mg/dl High Normal [facility] Urine leukocyte esterase det ection by dipstickOrdered By: Torrey Chavez on 06-30-2024 Leukocyte esterase Test strip Ql (U) 25 /ul High Negative [facility] Urine pHOrdered By: Torrey wang on 06-30-2024 pH (U) 6.0 [pH] 5.0 - 8.0 [facility] Urine sediment bacteria coun t by microscopy (number/high power field)Ordered By: Torrey Chavez on 06-30-2024 Bacteria LM.HPF (Urine sed) [#/Area] 0 /[HPF] None Seen [facility] Urine sediment fine granular cast count by microscopy (number/low power field)Ordered By: Torrey Chavez on 06-30-2024 Fine Granular Casts LM.LPF (Urine sed) [#/Area] 0-5 SEEN /lpf 0-5 [facility] Urine sediment hyaline cast count by microscopy (number/low power field)Ordered By: Torrey Chavez on 06-30-2024 Urine sediment hyaline cast count by microscopy (number/low power field) 0-5 SEEN /lpf 0-5 [facility] Urine specific gravity measu rementOrdered By: Torrey Chavez on 06-30-2024 Specific gravity (U) [Rel density] 1.020 1.002-1.03 0 [facility] Urine total bilirubin detect ion by test stripOrdered By: Torrey Chavez on 06-30-2024 Urine total bilirubin detection by test strip Negative Negative [facility] Urine urobilinogen measureme ntOrdered By: Torrey Chavez on 06-30-2024 Urobilinogen Ql (U) 1 mg/dl High Normal [facility] Urobilinogen Ql (U)Ordered B y: Torrey Chavez on 06-30-2024 Urine urobilinogen measurement 1 mg/dl High Normal [facility] White blood cell (WBC) count Ordered By: Torrey Chavez on 06-30-2024 White blood cell (WBC) count 9.9 K/mm3 4.4-11.0 [facility] White blood cell countOrdere d By: Torrey Chavez on 06-30-2024 White blood cell count 5-10 SEEN /hpf 0-5 [facility] White blood cell count 5-10 SEEN /hpf 0-5 [facility] pH (U)Ordered By: Torrey mccann on 06-30-2024 Urine pH 6.0 5.0 - 8.0 [facility] pH (Unsp spec)Ordered By: Conrad Cronin on 06-30-2024 Measurement, pH 7.50 High 7.35-7.45 [facility] Base excess Calc (BldV) [Mol es/Vol]Ordered By: Roosevelt Tesfaye on 06-29-2024 Venous blood base excess measurement 6 mmol/L High -1.0-3.5 [facility] CO2 (BldV) [Moles/Vol]Ordere d By: Roosevelt Tesfaye on 06-29-2024 CO2 [Moles/Vol] 33 mmol/L -33 [facility] Venous blood total carbon dioxide measurement 33 mmol/L [facility] CO2 (BldV) [Partial pressure ]Ordered By: Roosevelt Tesfaye on 06-29-2024 Venous blood partial pressure of carbon dioxide measurement 51.4 mmHg High 41-51 [facility] Cardiac catheterization repo rtOrdered By: Roosevelt Tesfaye on 06-29-2024 Cardiac catheterization study [facility] Work Phone: [phone] No Panel InformationOrdered By: Roosevelt Tesfaye on 06-29-2024 ALLY [facility] Not entered [facility] Oxygen (BldV) [Partial press ure]Ordered By: Roosevelt Tesfaye on 06-29-2024 Venous blood partial pressure of oxygen measurement 30 mmHg 25-40 [facility] Venous blood base excess tre surementOrdered By: Roosevelt Tesfaye on 06-29-2024 Base excess Calc (BldV) [Moles/Vol] 6 mmol/L High -1.0-3.5 [facility] Venous blood bicarbonate tre surementOrdered By: Roosevelt Tesfaye on 06-29-2024 HCO3 (Bld) [Moles/Vol] 31 mmol/L High 22-26 [facility] Venous blood bicarbonate measurement 31 mmol/L High 22-26 [facility] Venous blood oxygen saturati on measurementOrdered By: Roosevelt Tesfaye on 06-29-2024 Venous blood oxygen saturation measurement 55 % 50-70 [facility] Venous blood pH measurementO rdered By: Roosevelt Tesfaye on 06-29-2024 pH (BldV) 7.39 [pH] 7.32-7.42 [facility] Venous blood partial pressur e of carbon dioxide measurementOrdered By: Roosevelt Tesfaye on 06-29-2024 CO2 (BldV) [Partial pressure] 51.4 mm[Hg] High 41-51 [facility] Venous blood partial pressur e of oxygen measurementOrdered By: Roosevelt Tesfaye on 06-29-2024 Oxygen (BldV) [Partial pressure] 30 mm[Hg] 25-40 [facility] pH (BldV)Ordered By: Roosevelt acuña on 06-29-2024 Venous blood pH measurement 7.39 7.32-7.4 2 [facility] Absolute lymphocyte countOrd ered By: Roosevelt Tesfaye on 06-22-2024 Lymphocytes Auto (Unsp spec) [#/Vol] 0.94 10*3/uL 0.83-4.51 [facility] Absolute neutrophil countOrd ered By: [place] Mera on 06-22-2024 Absolute neutrophil count 6.8 X10^3/uL 2.0-7.7 [facility] Activated partial thrombopla stin time (aPTT) in platelet poor plasma by coagulation aOrdered By: Bessy Galan on 06-22-2024 aPTT Coag (PPP) [Time] 23.3 s Low 24.1-36.2 [facility] Anion gap [Moles/Vol]Ordered By: Roosevelt Mera on 06-22-2024 Anion gap in Serum or Plasma 11 5-15 [facility] Anion gap in Serum or Plasma Ordered By: [place] Mera on 06-22-2024 Anion gap [Moles/Vol] 11 mmol/L 5-15 [facility] Automated lymphocyte count a s percentage of total leukocytesOrdered By: [place] Mera on 06-22-2024 Lymphocytes/100 WBC Auto (Unsp spec) 10.7 % Low 19-41 [facility] BUN/creatinine ratioOrdered By: Roosevelt Mera on 06-22-2024 Urea nitrogen/Creatinine [Mass ratio] 15.1 mg/mg 10-20 [facility] BUN/creatinine ratio 15.1 RATIO 10-20 [facility] Basophil percentageOrdered B y: Rooseveltraoul Tesfaye on 06-22-2024 Basophils/100 WBC (Bld) 0.6 % 0-1 [facility] Basophil percentage 0.6 % 0-1 [facility] Calcium [Mass/Vol]Ordered By : [place] Mera on 06-22-2024 Serum or plasma calcium measurement (mass/volume) 9.0 mg/dL 7.6-11.[address] [facility] Carbon dioxide, total [Moles /volume] in Central venous bloodOrdered By: Rooseveltraoul Tesfaye on 06-22-2024 CO2 [Moles/Vol] 25.6 mmol/L 21.0-32.0 [facility] Carbon dioxide, total [Moles/volume] in Central venous blood 25.6 mmol/L 21.0-32.0 [facility] Chloride assayOrdered By: Finn Tesfaye on 06-22-2024 Chloride [Moles/Vol] 101 mmol/L 98-108 [facility] Chloride assay 101 mmol/L 98-108 [facility] Creatinine [Mass/Vol]Ordered By: Roosevelt Tesfaye on 06-22-2024 Serum creatinine measurement (mass/volume) 1.64 mg/dL High 0.70-1.[address] [facility] Eosinophil percentageOrdered By: Roosevelt Tesfaye on 06-22-2024 Eosinophils/100 WBC (Bld) 1.4 % 0-5 [facility] Eosinophil percentage 1.4 % 0-5 [facility] Erythrocyte distribution wid th (RBC) [Ratio]Ordered By: Roosevelt Tesfaye on 06-22-2024 Erythrocyte distribution width ratio 15.6 % High 11.6-14.6 [facility] Erythrocyte distribution width standard deviation 51.6 fl High 35.1-43.9 [facility] Erythrocyte distribution wid th ratioOrdered By: Roosevelt Tesfaye on 06-22-2024 Erythrocyte distribution width (RBC) [Ratio] 15.6 % High 11.6-14.6 [facility] Erythrocyte distribution wid th standard deviationOrdered By: Roosevelt Tesfaye on 06-22-2024 Erythrocyte distribution width (RBC) [Ratio] 51.6 fl High 35.1-43.9 [facility] GFR/1.73 sq M.predicted nichole g non-blacks MDRD (S/P/Bld) [Vol rate/Area]Ordered By: Roosevelt Tesfaye on 06-22-2024 Glomerular filtration rate (GFR) estimation/1.73 sq m using serum, plasma, or whole b 30 Low >60 [facility] Glomerular filtration rate ( GFR) estimation/1.73 sq m using serum, plasma, or whole bOrdered By: Roosevelt Tesfaye on 06-22-2024 GFR/1.73 sq M.predicted among non-blacks MDRD (S/P/Bld) [Vol rate/Area] 30 mL/min/{1.73_m2} Low >60 [facility] Glucose [Mass/Vol]Ordered By : Roosevelt Tesfaye on 06-22-2024 Serum glucose measurement (mass/volume) 406 mg/dL High 70-99 [facility] Hematocrit Auto (Bld) [Volum e fraction]Ordered By: Roosevelt Tesfaye on 06-22-2024 Hematocrit (Bld) [Volume fraction] 31.5 % Low 37-47 [facility] Automated blood hematocrit (percentage) 31.5 % Low 37-47 [facility] Hemoglobin measurementOrdere d By: Roosevelt Tesfaye on 06-22-2024 Hemoglobin (Bld) [Mass/Vol] 9.8 g/dL Low 12.0-15. 0 [facility] Hemoglobin measurement 9.8 g/dL Low 12.0-15.0 [facility] Immature granulocytes/100 WB C Auto (Bld)Ordered By: Roosevelt Tesfaye on 06-22-2024 Immature granulocytes/100 WBC (Bld) 1.800 % High 0.0-0.9 [facility] Automated immature granulocyte percentage 1.800 % High 0.0-0.9 [facility] International normalized rat io (INR) calculationOrdered By: Roosevelt Tesfaye on 06-22-2024 International normalized ratio (INR) calculation 1.0 [facility] Lymphocytes Auto (Unsp spec) [#/Vol]Ordered By: Roosevelt Tesfaye on 06-22-2024 Absolute lymphocyte count 0.94 X10^3/uL 0.83-4. 51 [facility] Lymphocytes/100 WBC Auto (Un sp spec)Ordered By: Roosevelt Tesfaye on 06-22-2024 Automated lymphocyte count as percentage of total leukocytes 10.7 % Low 19-41 [facility] MCV (RBC) [Entitic vol]Order ed By: Roosevelt Tesfaye on 06-22-2024 MCV (mean corpuscular volume) determination 91.3 fL 81-99 [facility] MCV (mean corpuscular volume ) determinationOrdered By: Roosevelt Tesfaye on 06-22-2024 MCV (RBC) [Entitic vol] 91.3 fL 81-99 [facility] Mean corpuscular hemoglobin (MCH) determinationOrdered By: Roosevelt Tesfaye on 06-22-2024 MCH (RBC) [Entitic mass] 28.4 pg 27.0-32.0 [facility] Mean corpuscular hemoglobin (MCH) determination 28.4 pg 27.0-32.0 [facility] Mean corpuscular hemoglobin concentration (MCHC) determinationOrdered By: [place] Mera on 06-22-2024 Mean corpuscular hemoglobin concentration (MCHC) determination 31.1 g/dL Low 32-36 [facility] Mean platelet volume determi nationOrdered By: [place] Mera on 06-22-2024 Mean platelet volume determination 10.3 fl 6.2-12.0 [facility] Monocyte percentageOrdered B y: Roosevelt Mera on 06-22-2024 Monocytes/100 WBC (Bld) 8.6 % 0-10 [facility] Monocyte percentage 8.6 % 0-10 [facility] Neutrophil percentageOrdered By: [place] Mera on 06-22-2024 Neutrophils/100 WBC (Bld) 76.9 % High 47-70 [facility] Neutrophil percentage 76.9 % High 47-70 [facility] Nucleated red blood cell per centageOrdered By: [place] Mera on 06-22-2024 Nucleated red blood cell percentage 0 % 0-5 [facility] Platelet countOrdered By: Cy ril Mera on 06-22-2024 Platelets (Bld) [#/Vol] 275 10*3/uL 150-450 [facility] Platelet count 275 K/mm3 150-450 [facility] Potassium (Unsp spec) [Mass/ Vol]Ordered By: Roosevelt Mera on 06-22-2024 Potassium measurement (mass/volume) 5.0 mmol/L 3.3-5.1 [facility] Potassium measurement (mass/ volume)Ordered By: Roosevelt Mera on 06-22-2024 Potassium (Unsp spec) [Mass/Vol] 5.0 mmol/L 3.3-5.1 [facility] Prothrombin timeOrdered By: [place] Mera on 06-22-2024 PT Coag (PPP) [Time] 12.9 s 11.7-14.9 [facility] Prothrombin time 12.9 SECONDS 11.7-14.[address] [facility] RBC Auto (Bld) [#/Vol]Ordere d By: [place] Mera on 06-22-2024 RBC (Bld) [#/Vol] 3.45 10*6/uL Low 4.2-5.4 [facility] Automated blood erythrocyte count 3.45 M/mm3 Low 4.2-5.4 [facility] Serum creatinine measurement (mass/volume)Ordered By: Roosevelt Tesfaye on 06-22-2024 Creatinine [Mass/Vol] 1.64 mg/dL High 0.70-1.20 [facility] Serum glucose measurement (m ass/volume)Ordered By: Roosevelt Tesfaye on 06-22-2024 Glucose [Mass/Vol] 406 mg/dL High 70-[address] [facility] Serum or plasma calcium bob urement (mass/volume)Ordered By: Roosevelt Tesfaye on 06-22-2024 Calcium [Mass/Vol] 9.0 mg/dL 7.6-11.[address] [facility] Serum or plasma urea nitroge n measurement (mass/volume)Ordered By: Roosevelt Tesfaye on 06-22-2024 Urea nitrogen [Mass/Vol] 25 mg/dL High - [facility] Sodium levelOrdered By: Pauly Tesfaye on 06-22-2024 Sodium [Moles/Vol] 138 mmol/L 133-[address] [facility] Sodium level 138 mmol/L 133-145 [facility] Urea nitrogen [Mass/Vol]Orde red By: Roosevelt Tesfaye on 06-22-2024 Serum or plasma urea nitrogen measurement (mass/volume) 25 mg/dL High - [facility] White blood cell (WBC) count Ordered By: Roosevelt Tesfaye on 06-22-2024 WBC (Bld) [#/Vol] 8.8 10*3/uL 4.4-11.[address] [facility] White blood cell (WBC) count 8.8 K/mm3 4.4-11.0 [facility] aPTT Coag (PPP) [Time]Ordere d By: Bessy Galan on 06-22-2024 Activated partial thromboplastin time (aPTT) in platelet poor plasma by coagulation a 23.3 Seconds Low 24.1-36.2 [facility] Anion gap [Moles/Vol]Ordered By: Chad Woodard on 05-14-2024 Serum or plasma anion gap determination (moles/volume) 9 5-15 [facility] BUN/creatinine ratioOrdered By: Chad Woodard on 05-14-2024 Urea nitrogen/Creatinine [Mass ratio] 20.1 mg/mg High 10-20 [facility] BUN/creatinine ratio 20.1 RATIO High 10-20 [facility] Calcium [Mass/Vol]Ordered By : Chad Woodard on 05-14-2024 Serum or plasma calcium measurement (mass/volume) 9.1 mg/dL 7.6-11.[address] [facility] Carbon dioxide measurementOr dered By: Chad Woodard on 05-14-2024 CO2 [Moles/Vol] 27.9 mmol/L 22.0-29.0 [facility] Carbon dioxide measurement 27.9 mmol/L 22.0-29. 0 [facility] Chloride measurementOrdered By: Chad Woodard on 05-14-2024 Chloride [Moles/Vol] 100 mmol/L 96-108 [facility] Chloride measurement 100 mmol/L 96-108 [facility] Creatinine [Moles/Vol]Ordere d By: Chad Woodard on 05-14-2024 Serum or plasma creatinine measurement (moles/volume) 1.4 mg/dL High 0.6-1.0 [facility] GFR/1.73 sq M.predicted nichole g non-blacks MDRD (S/P/Bld) [Vol rate/Area]Ordered By: Chad Woodard on 05-14-2024 Glomerular filtration rate (GFR) estimation/1.73 sq m using serum, plasma, or whole b 36 Low >60 [facility] Glomerular filtration rate ( GFR) estimation/1.73 sq m using serum, plasma, or whole bOrdered By: Chad Woodard on 05-14-2024 GFR/1.73 sq M.predicted among non-blacks MDRD (S/P/Bld) [Vol rate/Area] 36 mL/min/{1.73_m2} Low >60 [facility] Glucose [Mass/Vol]Ordered By : Chad Woodard on 05-14-2024 Serum glucose measurement (mass/volume) 331 mg/dL High 70-99 [facility] Potassium [Moles/Vol]Ordered By: Chad Woodard on 05-14-2024 Serum or plasma potassium measurement 4.8 mmol/L 3.3-5.1 [facility] Serum glucose measurement (m ass/volume)Ordered By: Chad Woodard on 05-14-2024 Glucose [Mass/Vol] 331 mg/dL High 70-[address] [facility] Serum or plasma anion gap de termination (moles/volume)Ordered By: Chad Woodard on 05-14-2024 Anion gap [Moles/Vol] 9 mmol/L 5-15 [facility] Serum or plasma calcium bob urement (mass/volume)Ordered By: Chad Woodard on 05-14-2024 Calcium [Mass/Vol] 9.1 mg/dL 7.6-11.[address] [facility] Serum or plasma creatinine m easurement (moles/volume)Ordered By: Chad Woodard on 05-14-2024 Creatinine [Moles/Vol] 1.4 mg/dL High 0.6-1.0 [facility] Serum or plasma potassium me asurementOrdered By: Chad Woodard on 05-14-2024 Potassium [Moles/Vol] 4.8 mmol/L 3.3-5.1 [facility] Serum or plasma sodium measu rement (moles/volume)Ordered By: Chad Woodard on 05-14-2024 Sodium [Moles/Vol] 137 mmol/L 133-[address] [facility] Serum or plasma urea nitroge n measurement (mass/volume)Ordered By: Chad Woodard on 05-14-2024 Urea nitrogen [Mass/Vol] 29 mg/dL [facility] 07-04 [facility] Sodium [Moles/Vol]Ordered By : Chad Woodard on 05-14-2024 Serum or plasma sodium measurement (moles/volume) 137 mmol/L 133-145 [facility] Urea nitrogen [Mass/Vol]Orde red By: Chad Woodard on 05-14-2024 Serum or plasma urea nitrogen measurement (mass/volume) 29 mg/dL High 07-04 [facility] Absolute lymphocyte countOrd ered By: Ephraim Oneil on 04-28-2024 Lymphocytes Auto (Unsp spec) [#/Vol] 0.95 10*3/uL 0.83-4.51 [facility] Absolute neutrophil countOrd ered By: Ephraim Oneil on 04-28-2024 Absolute neutrophil count 4.7 X10^3/uL 2.0-7.7 [facility] Automated lymphocyte count a s percentage of total leukocytesOrdered By: Ephraim Oneil on 04-28-2024 Lymphocytes/100 WBC Auto (Unsp spec) 14.4 % Low 19-41 [facility] Basophil percentageOrdered B y: Ephraim Oneil on 04-28-2024 Basophils/100 WBC (Bld) 0.5 % 0-1 [facility] Basophil percentage 0.5 % 0-1 [facility] Blood urea nitrogen (BUN)/cr eatinine ratioOrdered By: Ephraim Oneil on 04-28-2024 Blood urea nitrogen (BUN)/creatinine ratio 23.5 RATIO High 10-20 [facility] Calcium [Mass/Vol]Ordered By : Ephraim Oneil on 04-28-2024 Serum or plasma calcium measurement (mass/volume) 8.1 mg/dL Low 8.5-10.[address] [facility] Carbon dioxide measurementOr dered By: Ephraim Oneil on 04-28-2024 CO2 [Moles/Vol] 21.0 mmol/L 21.0-32.0 [facility] Carbon dioxide measurement 21.0 mmol/L 21.0-32. 0 [facility] Chloride measurementOrdered By: Ephraim Oneil on 04-28-2024 Chloride [Moles/Vol] 110 mmol/L High 98-107 [facility] Chloride measurement 110 mmol/L High 98-107 [facility] Creatinine [Mass/Vol]Ordered By: Ephraim Oneil on 04-28-2024 Serum or plasma creatinine measurement (mass/volume) 1.66 mg/dL High 0.55-1.[address] [facility] Eosinophil percentageOrdered By: Ephraim Oneil on 04-28-2024 Eosinophils/100 WBC (Bld) 0.8 % 0-5 [facility] Eosinophil percentage 0.8 % 0-5 [facility] Erythrocyte distribution wid th (RBC) [Ratio]Ordered By: Ephraim nOeil on 04-28-2024 Erythrocyte distribution width ratio 16.6 % High 11.6-14.6 [facility] Erythrocyte distribution width standard deviation 54.4 fl High 35.1-43.9 [facility] Erythrocyte distribution wid th ratioOrdered By: Ephraim Oneil on 04-28-2024 Erythrocyte distribution width (RBC) [Ratio] 16.6 % High 11.6-14.6 [facility] Erythrocyte distribution wid th standard deviationOrdered By: Ephraim Oneil on 04-28-2024 Erythrocyte distribution width (RBC) [Ratio] 54.4 fl High 35.1-43.9 [facility] Estimated glomerular filtrat ion rate (GFR) AmericanOrdered By: Ephraim Oneil on 04-28-2024 Estimated glomerular filtration rate (GFR) 38 mL/min Low >60 [facility] Estimation of creatinine cristóbal aranceOrdered By: Ephraim Oneil on 04-28-2024 Estimation of creatinine clearance 33.88 ml/min [facility] Glomerular filtration rate ( GFR) estimationOrdered By: Ephraim Oneil on 04-28-2024 GFR/1.73 sq M.predicted among non-blacks MDRD (S/P/Bld) [Vol rate/Area] 31 mL/min/{1.73_m2} Low >60 [facility] Glomerular filtration rate (GFR) estimation 31 mL/min Low >60 [facility] Glucose measurementOrdered B y: Ephraim Oneil on 04-28-2024 Glucose [Mass/Vol] 105 mg/dL 74-[address] [facility] Glucose measurement 105 mg/dL 74-106 [facility] Glucose measurement at bedsi deOrdered By: Ephraim Oneil on 04-28-2024 Glucose [Mass/Vol] 152 mg/dL High 74-[address] [facility] Glucose measurement at bedside 152 mg/dL High 74-106 [facility] Hematocrit Auto (Bld) [Volum e fraction]Ordered By: Ephraim Oneil on 04-28-2024 Hematocrit (Bld) [Volume fraction] 32.9 % Low 37-47 [facility] Automated blood hematocrit (percentage) 32.9 % Low 37-47 [facility] Hemoglobin measurementOrdere d By: Ephraim Oneil on 04-28-2024 Hemoglobin (Bld) [Mass/Vol] 10.2 g/dL Low 12.0-15. 0 [facility] Hemoglobin measurement 10.2 g/dL Low 12.0-15.0 [facility] Immature granulocytes/100 WB C Auto (Bld)Ordered By: Ephraim Oneil on 04-28-2024 Immature granulocytes/100 WBC (Bld) 1.400 % High 0.0-0.9 [facility] Automated immature granulocyte percentage 1.400 % High 0.0-0.9 [facility] Lymphocytes Auto (Unsp spec) [#/Vol]Ordered By: Ephraim Oneil on 04-28-2024 Absolute lymphocyte count 0.95 X10^3/uL 0.83-4. 51 [facility] Lymphocytes/100 WBC Auto (Un sp spec)Ordered By: Ephraim Oneil on 04-28-2024 Automated lymphocyte count as percentage of total leukocytes 14.4 % Low 19-41 [facility] MCV (RBC) [Entitic vol]Order ed By: Ephraim Oneil on 04-28-2024 MCV (mean corpuscular volume) determination 89.9 fL 81-99 [facility] MCV (mean corpuscular volume ) determinationOrdered By: Ephraim Oneil on 04-28-2024 MCV (RBC) [Entitic vol] 89.9 fL 81-99 [facility] Mean corpuscular hemoglobin (MCH) determinationOrdered By: Ephraim Oneil on 04-28-2024 MCH (RBC) [Entitic mass] 27.9 pg 27.0-32.0 [facility] Mean corpuscular hemoglobin (MCH) determination 27.9 pg 27.0-32.0 [facility] Mean corpuscular hemoglobin concentration (MCHC) determinationOrdered By: Ephraim Oneil on 04-28-2024 Mean corpuscular hemoglobin concentration (MCHC) determination 31.0 g/dL Low 32-36 [facility] Mean platelet volume determi nationOrdered By: Ephraim Oneil on 04-28-2024 Mean platelet volume determination 11.1 fl 6.2-12.0 [facility] Monocyte percentageOrdered B y: Ephraim Oneil on 04-28-2024 Monocytes/100 WBC (Bld) 11.6 % High 0-10 [facility] Monocyte percentage 11.6 % High 0-10 [facility] Neutrophil percentageOrdered By: Ephraim Oneil on 04-28-2024 Neutrophils/100 WBC (Bld) 71.3 % High 47-70 [facility] Neutrophil percentage 71.3 % High 47-70 [facility] Nucleated red blood cell per centageOrdered By: Ephraim Oneil on 04-28-2024 Nucleated red blood cell percentage 0 % 0-5 [facility] Platelet countOrdered By: Yamile Oneil on 04-28-2024 Platelets (Bld) [#/Vol] 206 10*3/uL 150-450 [facility] Platelet count 206 K/mm3 150-450 [facility] Potassium measurementOrdered By: Ephraim Oneil on 04-28-2024 Potassium [Moles/Vol] 3.8 mmol/L 3.5-5.1 [facility] Potassium measurement 3.8 mmol/L 3.5-5.1 [facility] RBC Auto (Bld) [#/Vol]Ordere d By: Ephraim Oneil on 04-28-2024 RBC (Bld) [#/Vol] 3.66 10*6/uL Low 4.2-5.4 [facility] Automated blood erythrocyte count 3.66 M/mm3 Low 4.2-5.4 [facility] Serum anion gap measurementO rdered By: Ephraim Oneil on 04-28-2024 Serum anion gap measurement 8 5-15 [facility] Serum or plasma calcium bob urement (mass/volume)Ordered By: Ephraim Oneil on 04-28-2024 Calcium [Mass/Vol] 8.1 mg/dL Low 8.5-10.[address] [facility] Serum or plasma creatinine m easurement (mass/volume)Ordered By: Ephraim Oneil on 04-28-2024 Creatinine [Mass/Vol] 1.66 mg/dL High 0.55-1.02 [facility] Serum or plasma trough vanco mycin levelOrdered By: Liz Griffin on 04-28-2024 Vancomycin trough [Mass/Vol] 18.1 ug/mL High 5.0-15.0 [facility] Serum or plasma urea nitroge n measurement (mass/volume)Ordered By: Ephraim Oneil on 04-28-2024 Urea nitrogen [Mass/Vol] 39 mg/dL High 7-18 [facility] Sodium levelOrdered By: Polo Oneil on 04-28-2024 Sodium [Moles/Vol] 139 mmol/L 136-[address] [facility] Sodium level 139 mmol/L 136-145 [facility] Urea nitrogen [Mass/Vol]Orde red By: Ephraim Oneil on 04-28-2024 Serum or plasma urea nitrogen measurement (mass/volume) 39 mg/dL High 7-18 [facility] Vancomycin trough [Mass/Vol] Ordered By: Liz Griffin on 04-28-2024 Serum or plasma trough vancomycin level 18.1 ug/mL High 5.0-15.0 [facility] White blood cell (WBC) count Ordered By: Ephraim Oneil on 04-28-2024 WBC (Bld) [#/Vol] 6.6 10*3/uL 4.4-11.[address] [facility] White blood cell (WBC) count 6.6 K/mm3 4.4-11.0 [facility] ALP [Catalytic activity/Vol] Ordered By: Liz Griffin on 04-26-2024 Serum or plasma alkaline phosphatase measurement 59 U/L 45-117 [facility] ALT [Catalytic activity/Vol] Ordered By: Liz Griffin on 04-26-2024 Serum or plasma alanine aminotransferase (ALT) measurement 15 U/L 13-56 [facility] Albumin [Mass/Vol]Ordered By : Liz Griffin on 04-26-2024 Serum or plasma albumin measurement (mass/volume) 2.2 g/dL Low 3.2-5.[address] [facility] Albumin to globulin ratioOrd ered By: Liz Griffin on 04-26-2024 Albumin to globulin ratio 0.8 RATIO Low 0.9-2.4 [facility] Bilirubin, totalOrdered By: Liz Griffin on 04-26-2024 Bilirubin [Mass/Vol] 0.50 mg/dL 0.20-1.00 [facility] Bilirubin, total 0.50 mg/dL 0.20-1.00 [facility] Cholesterol [Mass/Vol]Ordere d By: Liz Griffin on 04-26-2024 Serum or plasma cholesterol measurement (mass/volume) 107 mg/dL <[address] [facility] High density lipoprotein (HD L) measurementOrdered By: Liz Griffin on 04-26-2024 High density lipoprotein (HDL) measurement 47 mg/dL >40 [facility] High density lipoprotein (HDL) measurement 47 mg/dL >40 [facility] Low density lipoprotein (LDL ) cholesterol measurementOrdered By: Liz Griffin on 04-26-2024 Low density lipoprotein (LDL) cholesterol measurement 33 mg/dL 0-130 [facility] Low density lipoprotein (LDL) cholesterol measurement 33 mg/dL 0-130 [facility] No Panel InformationOrdered By: Liz Griffin on 04-26-2024 9 U/L Low 15-37 [facility] Serum globulin measurementOr dered By: Liz Griffin on 04-26-2024 Globulin (S) [Mass/Vol] 2.9 g/dL 2.2-4.2 [facility] Serum globulin measurement 2.9 g/dL 2.2-4.2 [facility] Serum or plasma alanine sierra otransferase (ALT) measurementOrdered By: Liz Griffin on 04-26-2024 ALT [Catalytic activity/Vol] 15 U/L 13-56 [facility] Serum or plasma albumin bob urement (mass/volume)Ordered By: Liz Griffin on 04-26-2024 Albumin [Mass/Vol] 2.2 g/dL Low 3.2-5.[address] [facility] Serum or plasma alkaline marco antonio sphatase measurementOrdered By: Liz Griffin 04-26-2024 ALP [Catalytic activity/Vol] 59 U/L 45-117 [facility] Serum or plasma cholesterol measurement (mass/volume)Ordered By: Liz Griffin on 04-26-2024 Cholesterol [Mass/Vol] 107 mg/dL <200 [facility] Serum or plasma thyroid stim ulating hormone (TSH) measurement (units/volume)Ordered By: Liz Griffin on 04-26-2024 TSH Qn 3.400 uIU/mL 0.358-3.74 0 [facility] TSH QnOrdered By: Liz jason on 04-26-2024 Serum or plasma thyroid stimulating hormone (TSH) measurement (units/volume) 3.400 uIU/mL 0.358-3.74 0 [facility] Total proteinOrdered By: Aut harika Griffin on 04-26-2024 Protein [Mass/Vol] 5.1 g/dL Low 6.4-8.[address] [facility] Total protein 5.1 g/dL Low 6.4-8.2 [facility] Triglycerides measurementOrd ered By: Liz Griffin on 04-26-2024 Triglycerides measurement 133 mg/dL <199 [facility] Troponin IOrdered By: Liz Griffin on 04-26-2024 Troponin I 144 pg/mL High 3.0-54.0 [facility] Troponin I 144 pg/mL High 3.0-54.0 [facility] Urine Legionella pneumophila antigen detectionOrdered By: Liz Griffin on 04-26-2024 L. pneumophila Ag Ql (U) [facility] Very low density lipoprotein (VLDL) cholesterol measurementOrdered By: Liz Griffin on 04-26-2024 Very low density lipoprotein (VLDL) cholesterol measurement 27 mg/dL 5-40 [facility] Very low density lipoprotein (VLDL) cholesterol measurement 27 mg/dL 5-40 [facility] BNP (brain natriuretic pepti de measurement)Ordered By: Daniel Briscoe on 04-25-2024 Natriuretic peptide B (Bld) [Mass/Vol] 384.8 pg/mL High 0-100 [facility] BNP (brain natriuretic peptide measurement) 384.8 pg/mL High 0-100 [facility] Blood cultureOrdered By: Dinora Briscoe on 04-25-2024 Bacteria identified Cx Nom (Bld) No growth in 5 days. [facility] Blood culture No growth in 5 days. [facility] Bacteria identified Cx Nom (Bld) No growth in 5 days. [facility] Blood culture No growth in 5 days. [facility] Influenza virus A and B and SARS-CoV-2 (COVID-19) and Respiratory syncytial virus RNAOrdered By: Daniel Briscoe on 04-25-2024 SARS-CoV-2 (COVID-19) RNA ROSINA+probe Ql (Unsp spec) [facility] Lactic acid measurementOrder ed By: Daniel Briscoe on 04-25-2024 Lactic acid measurement 1.6 mmol/L 0.4-2.0 [facility] Magnesium measurementOrdered By: Liz Griffin on 04-25-2024 Magnesium [Mass/Vol] 2.0 mg/dL 1.6-2.6 [facility] Magnesium measurement 2.0 mg/dL 1.6-2.6 [facility] Nasal methicillin resistant Staphylococcus aureus (MRSA) DNA detection by PCROrdered By: Liz Elias on 04-25-2024 MRSA DNA ROSINA+probe Ql (Nose) [facility] Phosphorus measurementOrdere d By: Liz Elias on 04-25-2024 Phosphorus measurement 3.3 mg/dL 2.5-4.9 [facility] Procalcitonin [Mass/Vol]Orde red By: Elias on 04-25-2024 Serum procalcitonin measurement 0.16 ng/mL High 0.00-0.09 [facility] Serum procalcitonin measurem entOrdered By: Liz Elias on 04-25-2024 Procalcitonin [Mass/Vol] 0.16 ng/mL High 0.00-0.09 [facility] Influenza virus A and B and SARS-CoV-2 (COVID-19) and Respiratory syncytial virus RNAOrdered By: Alexy Douglas on 04-22-2024 SARS-CoV-2 (COVID-19) RNA ROSINA+probe Ql (Unsp spec) [facility] Influenza virus A and B and SARS-CoV-2 (COVID-19) and Respiratory syncytial virus RNAOrdered By: Alexy Douglas on 04-13-2024 SARS-CoV-2 (COVID-19) RNA ROSINA+probe Ql (Unsp spec) [facility] Blood urea nitrogen (BUN)/cr eatinine ratioOrdered By: Raul Busby on 04-07-2024 Blood urea nitrogen (BUN)/creatinine ratio 17.4 RATIO 10-20 [facility] Calcium [Mass/Vol]Ordered By : Raul Busby on 04-07-2024 Serum or plasma calcium measurement (mass/volume) 9.4 mg/dL 8.5-10.[address] [facility] Carbon dioxide measurementOr dered By: Raul Busby on 04-07-2024 CO2 [Moles/Vol] 27.0 mmol/L 21.0-32.0 [facility] Carbon dioxide measurement 27.0 mmol/L 21.0-32. 0 [facility] Chloride measurementOrdered By: Raul Busby on 04-07-2024 Chloride [Moles/Vol] 104 mmol/L 98-107 [facility] Chloride measurement 104 mmol/L 98-107 [facility] Creatinine [Mass/Vol]Ordered By: Raul Busby on 04-07-2024 Serum or plasma creatinine measurement (mass/volume) 1.78 mg/dL High 0.55-1.[address] [facility] Estimated glomerular filtrat ion rate (GFR) AmericanOrdered By: Raul Busby on 04-07-2024 Estimated glomerular filtration rate (GFR) 35 mL/min Low >60 [facility] Estimation of creatinine cristóbal aranceOrdered By: Raul Busby on 04-07-2024 Estimation of creatinine clearance 32.17 ml/min [facility] Glomerular filtration rate ( GFR) estimationOrdered By: Raul Busby on 04-07-2024 GFR/1.73 sq M.predicted among non-blacks MDRD (S/P/Bld) [Vol rate/Area] 29 mL/min/{1.73_m2} Low >60 [facility] Glomerular filtration rate (GFR) estimation 29 mL/min Low >60 [facility] Glucose measurementOrdered B y: Raul Busby on 04-07-2024 Glucose [Mass/Vol] 276 mg/dL High 74-[address] [facility] Glucose measurement 276 mg/dL High 74-106 [facility] Glucose measurement at bedsi deOrdered By: Raul Busby on 04-07-2024 Glucose [Mass/Vol] 267 mg/dL High 74-[address] [facility] Glucose measurement at bedside 267 mg/dL High 74-106 [facility] Potassium measurementOrdered By: Raul Busby on 04-07-2024 Potassium [Moles/Vol] 4.1 mmol/L 3.5-5.1 [facility] Potassium measurement 4.1 mmol/L 3.5-5.1 [facility] Serum anion gap measurementO rdered By: Raul Busby on 04-07-2024 Serum anion gap measurement 5 5-15 [facility] Serum or plasma calcium bob urement (mass/volume)Ordered By: Raul Busby on 04-07-2024 Calcium [Mass/Vol] 9.4 mg/dL 8.5-10.[address] [facility] Serum or plasma creatinine m easurement (mass/volume)Ordered By: Raul Busby on 04-07-2024 Creatinine [Mass/Vol] 1.78 mg/dL High 0.55-1.02 [facility] Serum or plasma urea nitroge n measurement (mass/volume)Ordered By: Raul Busby on 04-07-2024 Urea nitrogen [Mass/Vol] 31 mg/dL High 10-02 [facility] Sodium levelOrdered By: Nazario Busby on 04-07-2024 Sodium [Moles/Vol] 136 mmol/L 136-[address] [facility] Sodium level 136 mmol/L 136-145 [facility] Urea nitrogen [Mass/Vol]Orde red By: Raul Busby on 04-07-2024 Serum or plasma urea nitrogen measurement (mass/volume) 31 mg/dL High 10-02 [facility] Absolute lymphocyte countOrd ered By: Raul Busby on 04-06-2024 Lymphocytes Auto (Unsp spec) [#/Vol] 0.73 10*3/uL Low 0.83-4.51 [facility] Absolute neutrophil countOrd ered By: Raul Busby on 04-06-2024 Absolute neutrophil count 6.2 X10^3/uL 2.0-7.7 [facility] Albumin to globulin ratioOrd ered By: Raul Busby on 04-06-2024 Albumin to globulin ratio 0.8 RATIO Low 0.9-2.4 [facility] Appearance (Body fld)Ordered By: Raul Busby on 04-06-2024 Body fluid appearance (nominal result) SL CLDY [facility] Automated lymphocyte count a s percentage of total leukocytesOrdered By: Raul Busby on 04-06-2024 Lymphocytes/100 WBC Auto (Unsp spec) 9.3 % Low 19-41 [facility] Basophil percentageOrdered B y: Raul Busby on 04-06-2024 Basophils/100 WBC (Bld) 0.5 % 0-1 [facility] Basophil percentage 0.5 % 0-1 [facility] Body fluid appearance (nomin al result)Ordered By: Raul Busby on 04-06-2024 Appearance (Body fld) SL CLDY [facility] Body fluid color determinati onOrdered By: Raul Busby on 04-06-2024 Color (Body fld) LT YEL [facility] Body fluid lactate dehydroge nase (LDH) measurementOrdered By: Raul Busby on 04-06-2024 Body fluid lactate dehydrogenase (LDH) measurement 69 Units/L Not Establ. [facility] Body fluid leukocytes count (number/volume)Ordered By: Raul Busby on 04-06-2024 WBC (Body fld) [#/Vol] 0.439 10*3/uL [facility] Body fluid lymphocytes/100 l eukocytesOrdered By: Raul Busby on 04-06-2024 Lymphocytes/100 WBC (Body fld) 17 % [facility] Body fluid macrophage countO rdered By: Raul Busby on 04-06-2024 Macrophages (Body fld) [#/Vol] 32 % [facility] Body fluid mesothelial cell percentageOrdered By: Raul Busby on 04-06-2024 Mesothelial cells/100 WBC (Body fld) 1 % [facility] Body fluid mononuclear cell countOrdered By: Raul Busby on 04-06-2024 Body fluid mononuclear cell count 0.258 10^3/uL [facility] Body fluid mononuclear cell percentageOrdered By: Raul Busby on 04-06-2024 Mononuclear cells/100 WBC (Body fld) 58.8 % [facility] Body fluid polymorphonuclear leukocyte countOrdered By: Raul Busby on 04-06-2024 Body fluid polymorphonuclear leukocyte count 0.181 10^3/uL [facility] Body fluid segmented neutrop hils count (number/volume)Ordered By: Raul Busby on 04-06-2024 Segmented neutrophils (Body fld) [#/Vol] 49 % [facility] Body fluid total cell countO rdered By: Raul Busby on 04-06-2024 Cells Counted Total (Body fld) [#] 0.487 10^3/ul High 0.000-0.00 0 [facility] Body fluid total protein tre surementOrdered By: Raul Busby on 04-06-2024 Protein (Body fld) [Mass/Vol] 2.1 g/dL Not Establ. [facility] Cells Counted Total (Body fl d) [#]Ordered By: Raul Busby on 04-06-2024 Body fluid total cell count 0.487 10^3/ul High 0.000-0.00 0 [facility] Color (Body fld)Ordered By: Raul Busby on 04-06-2024 Body fluid color determination LT YEL [facility] Cytology report Cyto stain D oc (Body fld)Ordered By: Raul Busby on 04-06-2024 Cytology report of Body fluid Cyto stain SEE PATHOLOGY REPORT [facility] Cytology report of Body flui d Cyto stainOrdered By: Raul Busby on 04-06-2024 Cytology report Cyto stain Doc (Body fld) SEE PATHOLOGY REPORT [facility] Eosinophil percentageOrdered By: Raul Busby on 04-06-2024 Eosinophils/100 WBC (Bld) 1.8 % 0-5 [facility] Eosinophil percentage 1.8 % 0-5 [facility] Erythrocyte distribution wid th (RBC) [Ratio]Ordered By: Raul Busby on 04-06-2024 Erythrocyte distribution width ratio 16.2 % High 11.6-14.6 [facility] Erythrocyte distribution width standard deviation 54.5 fl High 35.1-43.9 [facility] Erythrocyte distribution wid th ratioOrdered By: Raul Busby on 04-06-2024 Erythrocyte distribution width (RBC) [Ratio] 16.2 % High 11.6-14.6 [facility] Erythrocyte distribution wid th standard deviationOrdered By: Raul Busby on 04-06-2024 Erythrocyte distribution width (RBC) [Ratio] 54.5 fl High 35.1-43.9 [facility] Glucose, body fluidOrdered B y: Raul Busby on 04-06-2024 Glucose, body fluid 131 mg/dL High 40-70 [facility] Hematocrit Auto (Bld) [Volum e fraction]Ordered By: Raul Busby on 04-06-2024 Hematocrit (Bld) [Volume fraction] 29.0 % Low 37-47 [facility] Automated blood hematocrit (percentage) 29.0 % Low 37-47 [facility] Hemoglobin measurementOrdere d By: Raul Busby on 04-06-2024 Hemoglobin (Bld) [Mass/Vol] 8.9 g/dL Low 12.0-15. 0 [facility] Hemoglobin measurement 8.9 g/dL Low 12.0-15.0 [facility] Immature granulocytes/100 WB C Auto (Bld)Ordered By: Raul Busby on 04-06-2024 Immature granulocytes/100 WBC (Bld) 0.600 % 0.0-0.9 [facility] Automated immature granulocyte percentage 0.600 % 0.0-0.9 [facility] Lactate dehydrogenase (LDH) measurementOrdered By: Raul Busby on 04-06-2024 Lactate dehydrogenase (LDH) measurement 171 U/L 84-246 [facility] Lymphocytes Auto (Unsp spec) [#/Vol]Ordered By: Raul Busby on 04-06-2024 Absolute lymphocyte count 0.73 X10^3/uL Low 0.83-4. 51 [facility] Lymphocytes/100 WBC (Body fl d)Ordered By: Raul Busby on 04-06-2024 Body fluid lymphocytes/100 leukocytes 17 % [facility] Lymphocytes/100 WBC Auto (Un sp spec)Ordered By: Raul Busby on 04-06-2024 Automated lymphocyte count as percentage of total leukocytes 9.3 % Low 19-41 [facility] MCV (RBC) [Entitic vol]Order ed By: Raul Busby on 04-06-2024 MCV (mean corpuscular volume) determination 92.7 fL 81-99 [facility] MCV (mean corpuscular volume ) determinationOrdered By: Raul Busby on 04-06-2024 MCV (RBC) [Entitic vol] 92.7 fL 81-99 [facility] Macrophages (Body fld) [#/Vo l]Ordered By: Raul Busby on 04-06-2024 Body fluid macrophage count 32 % [facility] Magnesium measurementOrdered By: Raul Busby on 04-06-2024 Magnesium [Mass/Vol] 2.0 mg/dL 1.6-2.6 [facility] Magnesium measurement 2.0 mg/dL 1.6-2.6 [facility] Mean corpuscular hemoglobin (MCH) determinationOrdered By: Raul Busby on 04-06-2024 MCH (RBC) [Entitic mass] 28.4 pg 27.0-32.0 [facility] Mean corpuscular hemoglobin (MCH) determination 28.4 pg 27.0-32.0 [facility] Mean corpuscular hemoglobin concentration (MCHC) determinationOrdered By: Raul Busby on 04-06-2024 Mean corpuscular hemoglobin concentration (MCHC) determination 30.7 g/dL Low 32-36 [facility] Mean platelet volume determi nationOrdered By: Raul Busby on 04-06-2024 Mean platelet volume determination 10.9 fl 6.2-12.0 [facility] Monocyte detectionOrdered By : Raul Busby on 04-06-2024 Monocytes/100 WBC (Bld) 1 % [facility] Monocyte detection 1 % [facility] Monocyte percentageOrdered B y: Raul Busby on 04-06-2024 Monocytes/100 WBC (Bld) 8.8 % 0-10 [facility] Monocyte percentage 8.8 % 0-10 [facility] Mononuclear cells/100 WBC (B mike fld)Ordered By: Raul Busby on 04-06-2024 Body fluid mononuclear cell percentage 58.8 % [facility] Neutrophil percentageOrdered By: Raul Busby on 04-06-2024 Neutrophils/100 WBC (Bld) 79.0 % High 47-70 [facility] Neutrophil percentage 79.0 % High 47-70 [facility] No Panel InformationOrdered By: Raul Busby on 04-06-2024 846 /mm3 [facility] SEE COMMENT [facility] Nucleated red blood cell per centageOrdered By: Raul Busby on 04-06-2024 Nucleated red blood cell percentage 0 % 0-5 [facility] Pathologist interpretation ( Body fld) [Interp]Ordered By: Raul Busby on 04-06-2024 Pathologist interpretation of Body fluid tests Reviewed [facility] Pathologist interpretation o f Body fluid testsOrdered By: Raul Busby on 04-06-2024 Pathologist interpretation (Body fld) [Interp] Reviewed [facility] Phosphorus measurementOrdere d By: Raul Busby on 04-06-2024 Phosphorus measurement 3.6 mg/dL 2.5-4.9 [facility] Platelet countOrdered By: Halle Busby on 04-06-2024 Platelets (Bld) [#/Vol] 226 10*3/uL 150-450 [facility] Platelet count 226 K/mm3 150-450 [facility] Polymorphonuclear (PMN) leuk ocyte countOrdered By: Raul Busby on 04-06-2024 Polymorphonuclear (PMN) leukocyte count 41.2 % [facility] Protein (Body fld) [Mass/Vol ]Ordered By: Raul Busby on 04-06-2024 Body fluid total protein measurement 2.1 g/dL Not Establ. [facility] RBC Auto (Bld) [#/Vol]Ordere d By: Raul Busby on 04-06-2024 RBC (Bld) [#/Vol] 3.13 10*6/uL Low 4.2-5.4 [facility] Automated blood erythrocyte count 3.13 M/mm3 Low 4.2-5.4 [facility] Segmented neutrophils (Body fld) [#/Vol]Ordered By: Raul Busby on 04-06-2024 Body fluid segmented neutrophils count (number/volume) 49 % [facility] Serum globulin measurementOr dered By: Raul Busby on 04-06-2024 Globulin (S) [Mass/Vol] 3.3 g/dL 2.2-4.2 [facility] Serum globulin measurement 3.3 g/dL 2.2-4.2 [facility] Specimen source Nom (Body fl d)Ordered By: Raul Busby on 04-06-2024 Specimen source identification of body fluid THORACENTESIS [facility] Specimen source identificati on of body fluidOrdered By: Raul Busby on 04-06-2024 Specimen source Nom (Body fld) THORACENTESIS [facility] Total proteinOrdered By: Ronnell Busby on 04-06-2024 Protein [Mass/Vol] 5.8 g/dL Low 6.4-8.[address] [facility] Total protein 5.8 g/dL Low 6.4-8.2 [facility] WBC (Body fld) [#/Vol]Ordere d By: Raul Busby on 04-06-2024 Body fluid leukocytes count (number/volume) 0.439 10^3/uL [facility] White blood cell (WBC) count Ordered By: Raul Busby on 04-06-2024 WBC (Bld) [#/Vol] 7.8 10*3/uL 4.4-11.[address] [facility] White blood cell (WBC) count 7.8 K/mm3 4.4-11.0 [facility] ALP [Catalytic activity/Vol] Ordered By: Benny Vann on 04-05-2024 Serum or plasma alkaline phosphatase measurement 105 U/L 45-117 [facility] ALT [Catalytic activity/Vol] Ordered By: Benny Vann on 04-05-2024 Serum or plasma alanine aminotransferase (ALT) measurement 13 U/L 13-56 [facility] Albumin [Mass/Vol]Ordered By : Benny Vann on 04-05-2024 Serum or plasma albumin measurement (mass/volume) 2.9 g/dL Low 3.2-5.[address] [facility] Amylase (Body fld) [Catalyti c activity/Vol]Ordered By: Raul Busby on 04-05-2024 Amylase body fluid 36 U/L . [facility] Amylase body fluidOrdered By : Raul Busby on 04-05-2024 Amylase (Body fld) [Catalytic activity/Vol] 36 U/L . [facility] BNP (brain natriuretic pepti de measurement)Ordered By: Benny Vann on 04-05-2024 Natriuretic peptide B (Bld) [Mass/Vol] 457.8 pg/mL High 0-100 [facility] BNP (brain natriuretic peptide measurement) 457.8 pg/mL High 0-100 [facility] Base excess Calc (BldV) [Mol es/Vol]Ordered By: Benny Vann on 04-05-2024 Venous blood base excess measurement 6 mmol/L High -1.0-3.5 [facility] Bilirubin, totalOrdered By: Benny Vann on 04-05-2024 Bilirubin [Mass/Vol] 0.50 mg/dL 0.20-1.00 [facility] Bilirubin, total 0.50 mg/dL 0.20-1.00 [facility] Body fluid pHOrdered By: Ronnell Busby on 04-05-2024 pH (Body fld) 7.5 [pH] Not Estab. [facility] CO2 (BldV) [Moles/Vol]Ordere d By: Benny Vann on 04-05-2024 CO2 [Moles/Vol] 33 mmol/L 23-33 [facility] Venous blood total carbon dioxide measurement 33 mmol/L 23-33 [facility] CO2 (BldV) [Partial pressure ]Ordered By: Benny Vann on 04-05-2024 Venous blood partial pressure of carbon dioxide measurement 55.4 mmHg High 41-51 [facility] Influenza virus A and B and SARS-CoV-2 (COVID-19) and Respiratory syncytial virus RNAOrdered By: Benny Vann on 04-05-2024 SARS-CoV-2 (COVID-19) RNA ROSINA+probe Ql (Unsp spec) [facility] Lactic acid measurementOrder ed By: Benny Vann on 04-05-2024 Lactic acid measurement 1.2 mmol/L 0.4-2.0 [facility] No Panel InformationOrdered By: Benny Vann on 04-05-2024 ALLY [facility] Not entered [facility] 21 U/L 15-37 [facility] Oxygen (BldV) [Partial press ure]Ordered By: Benny Vann on 04-05-2024 Venous blood partial pressure of oxygen measurement 22 mmHg Low 25-40 [facility] Serum or plasma alanine sierra otransferase (ALT) measurementOrdered By: Benny Vann on 04-05-2024 ALT [Catalytic activity/Vol] 13 U/L 13-56 [facility] Serum or plasma albumin bob urement (mass/volume)Ordered By: Benny Vann on 04-05-2024 Albumin [Mass/Vol] 2.9 g/dL Low 3.2-5.[address] [facility] Serum or plasma alkaline marco antonio sphatase measurementOrdered By: Benny Vann on 04-05-2024 ALP [Catalytic activity/Vol] 105 U/L 45-117 [facility] Troponin IOrdered By: Donna Busby on 04-05-2024 Troponin I 21 pg/mL 3.0-54.0 [facility] Troponin I 21 pg/mL 3.0-54.0 [facility] Urine Legionella pneumophila antigen detectionOrdered By: Raul Busby on 04-05-2024 L. pneumophila Ag Ql (U) [facility] Venous blood base excess tre surementOrdered By: Benny Vann on 04-05-2024 Base excess Calc (BldV) [Moles/Vol] 6 mmol/L High -1.0-3.5 [facility] Venous blood bicarbonate tre surementOrdered By: Benny Vnan on 04-05-2024 HCO3 (Bld) [Moles/Vol] 31 mmol/L High 22-26 [facility] Venous blood bicarbonate measurement 31 mmol/L High 22-26 [facility] Venous blood oxygen saturati on measurementOrdered By: Benny Vann on 04-05-2024 Venous blood oxygen saturation measurement 33 % Low 50-70 [facility] Venous blood pH measurementO rdered By: Bneny Vann on 04-05-2024 pH (BldV) 7.36 [pH] 7.32-7.42 [facility] Venous blood partial pressur e of carbon dioxide measurementOrdered By: Benny Vann on 04-05-2024 CO2 (BldV) [Partial pressure] 55.4 mm[Hg] High 41-51 [facility] Venous blood partial pressur e of oxygen measurementOrdered By: Benny Vann on 04-05-2024 Oxygen (BldV) [Partial pressure] 22 mm[Hg] Low 25-40 [facility] pH (BldV)Ordered By: Benny arriola on 04-05-2024 Venous blood pH measurement 7.36 7.32-7.4 2 [facility] pH (Body fld)Ordered By: Ronnell Busby on 04-05-2024 Body fluid pH 7.5 Not Estab. [facility] [id number] DOrdered By: Herman Douglas on 03-31-2024 [id number] D 50.1 ng/mL [facility] ALP [Catalytic activity/Vol] Ordered By: Alexy Douglas on 03-31-2024 Serum or plasma alkaline phosphatase measurement 97 U/L 45-117 [facility] ALT [Catalytic activity/Vol] Ordered By: Alexy Douglas on 03-31-2024 Serum or plasma alanine aminotransferase (ALT) measurement 16 U/L 13-56 [facility] Absolute lymphocyte countOrd ered By: Alexy Douglas on 03-31-2024 Lymphocytes Auto (Unsp spec) [#/Vol] 1.13 10*3/uL 0.83-4.51 [facility] Absolute neutrophil countOrd ered By: Alexy Douglas on 03-31-2024 Absolute neutrophil count 8.8 X10^3/uL High 2.0-7.7 [facility] Albumin [Mass/Vol]Ordered By : Alexy Douglas on 03-31-2024 Serum or plasma albumin measurement (mass/volume) 2.9 g/dL Low 3.2-5.[address] [facility] Albumin to globulin ratioOrd ered By: Alexy Douglas on 03-31-2024 Albumin to globulin ratio 0.8 RATIO Low 0.9-2.4 [facility] Automated lymphocyte count a s percentage of total leukocytesOrdered By: Alexy Douglas on 03-31-2024 Lymphocytes/100 WBC Auto (Unsp spec) 10.2 % Low 19-41 [facility] Basophil percentageOrdered B y: Alexy Douglas on 03-31-2024 Basophils/100 WBC (Bld) 0.5 % 0-1 [facility] Basophil percentage 0.5 % 0-1 [facility] Bilirubin, totalOrdered By: Alexy Douglas 03-31-2024 Bilirubin [Mass/Vol] 0.40 mg/dL 0.20-1.00 [facility] Bilirubin, total 0.40 mg/dL 0.20-1.00 [facility] Blood urea nitrogen (BUN)/cr eatinine ratioOrdered By: Alexy Douglas 03-31-2024 Blood urea nitrogen (BUN)/creatinine ratio 17.7 RATIO 10-20 [facility] Calcium [Mass/Vol]Ordered By : Alexy Douglas on 03-31-2024 Serum or plasma calcium measurement (mass/volume) 8.8 mg/dL 8.5-10.[address] [facility] Carbon dioxide measurementOr dered By: Alexy Douglas 03-31-2024 CO2 [Moles/Vol] 30.0 mmol/L 21.0-32.0 [facility] Carbon dioxide measurement 30.0 mmol/L 21.0-32. 0 [facility] Chloride measurementOrdered By: Alexy Douglas 03-31-2024 Chloride [Moles/Vol] 103 mmol/L 98-107 [facility] Chloride measurement 103 mmol/L 98-107 [facility] Creatinine [Mass/Vol]Ordered By: Alexy Douglas on 03-31-2024 Serum or plasma creatinine measurement (mass/volume) 1.58 mg/dL High 0.55-1.[address] [facility] Eosinophil percentageOrdered By: Alexy Douglas on 03-31-2024 Eosinophils/100 WBC (Bld) 1.8 % 0-5 [facility] Eosinophil percentage 1.8 % 0-5 [facility] Erythrocyte distribution wid th (RBC) [Ratio]Ordered By: Alexy Douglas on 03-31-2024 Erythrocyte distribution width ratio 15.8 % High 11.6-14.6 [facility] Erythrocyte distribution width standard deviation 53.1 fl High 35.1-43.9 [facility] Erythrocyte distribution wid th ratioOrdered By: Alexy Douglas on 03-31-2024 Erythrocyte distribution width (RBC) [Ratio] 15.8 % High 11.6-14.6 [facility] Erythrocyte distribution wid th standard deviationOrdered By: Alexy Douglas on 03-31-2024 Erythrocyte distribution width (RBC) [Ratio] 53.1 fl High 35.1-43.9 [facility] Estimated glomerular filtrat ion rate (GFR) AmericanOrdered By: Alexy Douglas on 03-31-2024 Estimated glomerular filtration rate (GFR) 40 mL/min Low >60 [facility] Glomerular filtration rate ( GFR) estimationOrdered By: Alexy Douglas 03-31-2024 GFR/1.73 sq M.predicted among non-blacks MDRD (S/P/Bld) [Vol rate/Area] 33 mL/min/{1.73_m2} Low >60 [facility] Glomerular filtration rate (GFR) estimation 33 mL/min Low >60 [facility] Glucose measurementOrdered B y: Alexy Douglas on 03-31-2024 Glucose [Mass/Vol] 201 mg/dL High 74-[address] [facility] Glucose measurement 201 mg/dL High 74-106 [facility] Hematocrit Auto (Bld) [Volum e fraction]Ordered By: Alexy Douglas on 01-14-2025 Hematocrit (Bld) [Volume fraction] 33.6 % Low 37-47 [facility] Automated blood hematocrit (percentage) 33.6 % Low 37-47 [facility] Hemoglobin measurementOrdere d By: Alexy Douglas on 03-31-2024 Hemoglobin (Bld) [Mass/Vol] 10.2 g/dL Low 12.0-15. 0 [facility] Hemoglobin measurement 10.2 g/dL Low 12.0-15.0 [facility] Immature granulocytes/100 WB C Auto (Bld)Ordered By: Alexy Douglas on 03-31-2024 Immature granulocytes/100 WBC (Bld) 0.700 % 0.0-0.9 [facility] Automated immature granulocyte percentage 0.700 % 0.0-0.9 [facility] Lymphocytes Auto (Unsp spec) [#/Vol]Ordered By: Alexy Douglas on 03-31-2024 Absolute lymphocyte count 1.13 X10^3/uL 0.83-4. 51 [facility] Lymphocytes/100 WBC Auto (Un sp spec)Ordered By: Alexy Douglas on 03-31-2024 Automated lymphocyte count as percentage of total leukocytes 10.2 % Low 19-41 [facility] MCV (RBC) [Entitic vol]Order ed By: Alexy Douglas on 03-31-2024 MCV (mean corpuscular volume) determination 92.6 fL 81-99 [facility] MCV (mean corpuscular volume ) determinationOrdered By: Alexy Douglas 03-31-2024 MCV (RBC) [Entitic vol] 92.6 fL 81-99 [facility] Mean corpuscular hemoglobin (MCH) determinationOrdered By: Alexy Douglas on 03-31-2024 MCH (RBC) [Entitic mass] 28.1 pg 27.0-32.0 [facility] Mean corpuscular hemoglobin (MCH) determination 28.1 pg 27.0-32.0 [facility] Mean corpuscular hemoglobin concentration (MCHC) determinationOrdered By: Alexy Douglas on 03-31-2024 Mean corpuscular hemoglobin concentration (MCHC) determination 30.4 g/dL Low 32-36 [facility] Mean platelet volume determi nationOrdered By: Alexy Douglas 03-31-2024 Mean platelet volume determination 10.2 fl 6.2-12.0 [facility] Monocyte percentageOrdered B y: Alexy Douglas on 03-31-2024 Monocytes/100 WBC (Bld) 6.5 % 0-10 [facility] Monocyte percentage 6.5 % 0-10 [facility] Neutrophil percentageOrdered By: Alexy Douglas on 03-31-2024 Neutrophils/100 WBC (Bld) 80.3 % High 47-70 [facility] Neutrophil percentage 80.3 % High 47-70 [facility] No Panel InformationOrdered By: Alexy Douglas on 03-31-2024 15 U/L 15-37 [facility] Nucleated red blood cell per centageOrdered By: Alexy Douglas on 03-31-2024 Nucleated red blood cell percentage 0 % 0-5 [facility] Platelet countOrdered By: Lew Douglas on 03-31-2024 Platelets (Bld) [#/Vol] 266 10*3/uL 150-450 [facility] Platelet count 266 K/mm3 150-450 [facility] Potassium measurementOrdered By: Alexy Douglas on 03-31-2024 Potassium [Moles/Vol] 4.3 mmol/L 3.5-5.1 [facility] Potassium measurement 4.3 mmol/L 3.5-5.1 [facility] RBC Auto (Bld) [#/Vol]Ordere d By: Alexy Douglas on 03-31-2024 RBC (Bld) [#/Vol] 3.63 10*6/uL Low 4.2-5.4 [facility] Automated blood erythrocyte count 3.63 M/mm3 Low 4.2-5.4 [facility] Serum anion gap measurementO rdered By: Alexy Douglas on 03-31-2024 Serum anion gap measurement 7 5-15 [facility] Serum globulin measurementOr dered By: Alexy Douglas 03-31-2024 Globulin (S) [Mass/Vol] 3.5 g/dL 2.2-4.2 [facility] Serum globulin measurement 3.5 g/dL 2.2-4.2 [facility] Serum or plasma alanine sierra otransferase (ALT) measurementOrdered By: Alexy Douglas on 03-31-2024 ALT [Catalytic activity/Vol] 16 U/L 13-56 [facility] Serum or plasma albumin bob urement (mass/volume)Ordered By: Alexy Douglas 03-31-2024 Albumin [Mass/Vol] 2.9 g/dL Low 3.2-5.[address] [facility] Serum or plasma alkaline marco antonio sphatase measurementOrdered By: Alexy Douglas 03-31-2024 ALP [Catalytic activity/Vol] 97 U/L 45-117 [facility] Serum or plasma calcium bob urement (mass/volume)Ordered By: Alexy Douglas 03-31-2024 Calcium [Mass/Vol] 8.8 mg/dL 8.5-10.[address] [facility] Serum or plasma creatinine m easurement (mass/volume)Ordered By: Alexy Douglas 03-31-2024 Creatinine [Mass/Vol] 1.58 mg/dL High 0.55-1.02 [facility] Serum or plasma thyroid stim ulating hormone (TSH) measurement (units/volume)Ordered By: Alexy Douglas 03-31-2024 TSH Qn 1.910 uIU/mL 0.358-3.74 0 [facility] Serum or plasma urea nitroge n measurement (mass/volume)Ordered By: Alexy Douglas 03-31-2024 Urea nitrogen [Mass/Vol] 28 mg/dL High 10-02 [facility] Sodium levelOrdered By: Alexy Douglas 03-31-2024 Sodium [Moles/Vol] 140 mmol/L 136-[address] [facility] Sodium level 140 mmol/L 136-145 [facility] TSH QnOrdered By: Alexy Douglas o n 03-31-2024 Serum or plasma thyroid stimulating hormone (TSH) measurement (units/volume) 1.910 uIU/mL 0.358-3.74 0 [facility] Total proteinOrdered By: Alexy Douglas 03-31-2024 Protein [Mass/Vol] 6.4 g/dL 6.4-8.[address] [facility] Total protein 6.4 g/dL 6.4-8.2 [facility] Urea nitrogen [Mass/Vol]Orde red By: Alexy Douglas 03-31-2024 Serum or plasma urea nitrogen measurement (mass/volume) 28 mg/dL High 10-02 [facility] White blood cell (WBC) count Ordered By: Alexy Douglas on 03-31-2024 WBC (Bld) [#/Vol] 11.0 10*3/uL 4.4-11.0 [facility] White blood cell (WBC) count 11.0 K/mm3 4.4-11.0 [facility] Blood urea nitrogen (BUN)/cr eatinine ratioOrdered By: Amaury Pena on 03-18-2024 Blood urea nitrogen (BUN)/creatinine ratio 16.2 RATIO 10-20 [facility] Calcium [Mass/Vol]Ordered By : Amaury Pena on 03-18-2024 Serum or plasma calcium measurement (mass/volume) 8.8 mg/dL 8.5-10.[address] [facility] Carbon dioxide measurementOr dered By: Amaury Pena on 03-18-2024 Carbon dioxide measurement 34.0 mmol/L High 21.0-32. 0 [facility] Chloride measurementOrdered By: Amaury Pena on 03-18-2024 Chloride measurement 98 mmol/L 98-107 [facility] Creatinine [Mass/Vol]Ordered By: Amaury Pena on 03-18-2024 Serum or plasma creatinine measurement (mass/volume) 1.67 mg/dL High 0.55-1.[address] [facility] Estimated glomerular filtrat ion rate (GFR) AmericanOrdered By: Amaury Pena on 03-18-2024 Estimated glomerular filtration rate (GFR) 38 mL/min Low >60 [facility] Estimation of creatinine cristóbal aranceOrdered By: Amaury Pena on 03-18-2024 Estimation of creatinine clearance 32.69 ml/min [facility] Glomerular filtration rate ( GFR) estimationOrdered By: Amaury Pena on 03-18-2024 Glomerular filtration rate (GFR) estimation 31 mL/min Low >60 [facility] Glucose measurementOrdered B y: Amaury Pena on 03-18-2024 Glucose measurement 191 mg/dL High 74-106 [facility] Glucose measurement at bedsi deOrdered By: Amaury Pena on 03-18-2024 Glucose measurement at bedside 180 mg/dL High 74-106 [facility] Potassium measurementOrdered By: Amaury Pena on 03-18-2024 Potassium measurement 3.6 mmol/L 3.5-5.1 [facility] Serum anion gap measurementO rdered By: Amaury Pena on 03-18-2024 Serum anion gap measurement 5 5-15 [facility] Sodium levelOrdered By: Daniel Pena on 03-18-2024 Sodium level 136 mmol/L 136-145 [facility] Urea nitrogen [Mass/Vol]Orde red By: Amaury Pena on 03-18-2024 Serum or plasma urea nitrogen measurement (mass/volume) 27 mg/dL High 7-18 [facility] Absolute neutrophil countOrd ered By: Vidal Campbell on 03-17-2024 Absolute neutrophil count 6.6 X10^3/uL 2.0-7.7 [facility] Basophil percentageOrdered B y: Vidal Campbell on 03-17-2024 Basophil percentage 0.4 % 0-1 [facility] Cholesterol [Mass/Vol]Ordere d By: Vidal Campbell on 03-17-2024 Serum or plasma cholesterol measurement (mass/volume) 137 mg/dL <[address] [facility] Eosinophil percentageOrdered By: Vidal Campbell on 03-17-2024 Eosinophil percentage 2.5 % 0-5 [facility] Erythrocyte distribution wid th (RBC) [Ratio]Ordered By: Vidal Campbell on 03-17-2024 Erythrocyte distribution width ratio 15.7 % High 11.6-14.6 [facility] Erythrocyte distribution width standard deviation 52.3 fl High 35.1-43.9 [facility] Ferritin measurementOrdered By: Amaury Pena on 03-17-2024 Ferritin measurement 42 ng/mL 8-252 [facility] Folic acid measurementOrdere d By: Amaury Pena on 03-17-2024 Folic acid measurement 16.70 ng/mL 3.1-55.4 [facility] HbA1c (Bld) [Mass fraction]O rdered By: Vidal Campbell on 03-17-2024 Hemoglobin A1c percentage 8.9 % High 3.8-5.6 [facility] Hematocrit Auto (Bld) [Volum e fraction]Ordered By: Vidal Campbell on 03-17-2024 Automated blood hematocrit (percentage) 33.0 % Low 37-47 [facility] Hemoglobin measurementOrdere d By: Vidal Campbell on 03-17-2024 Hemoglobin measurement 9.9 g/dL Low 12.0-15.0 [facility] High density lipoprotein (HD L) measurementOrdered By: Vidal Campbell on 03-17-2024 High density lipoprotein (HDL) measurement 49 mg/dL >40 [facility] Immature granulocytes/100 WB C Auto (Bld)Ordered By: Vidal Campbell on 03-17-2024 Automated immature granulocyte percentage 0.600 % 0.0-0.9 [facility] Iron (Unsp spec) [Mass/Mass] Ordered By: Amaury Pena on 03-17-2024 Iron measurement (mass/mass) 35 ug/dL Low 50-170 [facility] Iron saturation [Mass fracti on]Ordered By: Amaury Pena on 03-17-2024 Serum or plasma iron saturation measurement (mass fraction) 12.9 % Low 15.0-55.0 [facility] Low density lipoprotein (LDL ) cholesterol measurementOrdered By: Vidal Campbell on 03-17-2024 Low density lipoprotein (LDL) cholesterol measurement 66 mg/dL 0-130 [facility] Lymphocytes Auto (Unsp spec) [#/Vol]Ordered By: Vidal Campbell on 03-17-2024 Absolute lymphocyte count 0.93 X10^3/uL 0.83-4. 51 [facility] Lymphocytes/100 WBC Auto (Un sp spec)Ordered By: Vidal Campbell on 03-17-2024 Automated lymphocyte count as percentage of total leukocytes 11.0 % Low 19-41 [facility] MCV (RBC) [Entitic vol]Order ed By: Vidal Campbell on 03-17-2024 MCV (mean corpuscular volume) determination 91.7 fL 81-99 [facility] Mean corpuscular hemoglobin (MCH) determinationOrdered By: Vidal Campbell on 03-17-2024 Mean corpuscular hemoglobin (MCH) determination 27.5 pg 27.0-32.0 [facility] Mean corpuscular hemoglobin concentration (MCHC) determinationOrdered By: Vidal Campbell on 03-17-2024 Mean corpuscular hemoglobin concentration (MCHC) determination 30.0 g/dL Low 32-36 [facility] Mean platelet volume determi nationOrdered By: Vidal Campbell on 03-17-2024 Mean platelet volume determination 10.0 fl 6.2-12.0 [facility] Monocyte percentageOrdered B y: Vidal Campbell on 03-17-2024 Monocyte percentage 7.4 % 0-10 [facility] Neutrophil percentageOrdered By: Vidal Campbell on 03-17-2024 Neutrophil percentage 78.1 % High 47-70 [facility] Nucleated red blood cell per centageOrdered By: Vidal Campbell on 03-17-2024 Nucleated red blood cell percentage 0 % 0-5 [facility] Platelet countOrdered By: Nathen Campbell on 03-17-2024 Platelet count 269 K/mm3 150-450 [facility] RBC Auto (Bld) [#/Vol]Ordere d By: Vidal Campbell on 03-17-2024 Automated blood erythrocyte count 3.60 M/mm3 Low 4.2-5.4 [facility] TIBCOrdered By: Amaury gonzales on 03-17-2024 TIBC 272 ug/dL 250-450 [facility] Triglycerides measurementOrd ered By: Vidal Campbell on 03-17-2024 Triglycerides measurement 108 mg/dL <199 [facility] Very low density lipoprotein (VLDL) cholesterol measurementOrdered By: Vidal Campbell on 03-17-2024 Very low density lipoprotein (VLDL) cholesterol measurement 22 mg/dL 5-40 [facility] Vitamin B12 measurementOrder ed By: Amaury Pena on 03-17-2024 Vitamin B12 measurement 258 pg/mL 211-911 [facility] White blood cell (WBC) count Ordered By: Vidal Campbell on 03-17-2024 White blood cell (WBC) count 8.5 K/mm3 4.4-11.0 [facility] ALP [Catalytic activity/Vol] Ordered By: Javier Sanchez on 03-16-2024 Serum or plasma alkaline phosphatase measurement 109 U/L 45-117 [facility] ALT [Catalytic activity/Vol] Ordered By: Javier Sanchez on 03-16-2024 Serum or plasma alanine aminotransferase (ALT) measurement 16 U/L 13-56 [facility] Albumin [Mass/Vol]Ordered By : Javier Sanchez on 03-16-2024 Serum or plasma albumin measurement (mass/volume) 2.8 g/dL Low 3.2-5.[address] [facility] BNP (brain natriuretic pepti de measurement)Ordered By: Javier Sanchez on 03-16-2024 BNP (brain natriuretic peptide measurement) 350.3 pg/mL High 0-100 [facility] Base excess Calc (BldV) [Mol es/Vol]Ordered By: Javier Sanchez on 03-16-2024 Blood base excess determination 4 mmol/L High -2-2 [facility] Bilirubin, totalOrdered By: Javier Sanchez on 03-16-2024 Bilirubin, total 0.40 mg/dL 0.20-1.00 [facility] Bilirubin.direct [Mass/Vol]O rdered By: Javier Sanchez on 03-16-2024 Bilirubin direct 0.16 mg/dL 0.00-0.30 [facility] Blood bicarbonate measuremen tOrdered By: Javier Sanchez on 03-16-2024 Blood bicarbonate measurement 28.6 mmol/L High 22-26 [facility] Determination of fraction of inspired oxygenOrdered By: Javier Sanchez on 03-16-2024 Determination of fraction of inspired oxygen 40.0 [facility] International normalized rat io (INR) calculationOrdered By: Javier Sanchez on 03-16-2024 International normalized ratio (INR) calculation 1.1 [facility] No Panel InformationOrdered By: Javier Sanchez on 03-16-2024 ART [facility] R Brach [facility] AC [facility] BiPAP [facility] 16 [facility] 02/22 [facility] 8 U/L Low 15-37 [facility] Oxygen saturation measuremen tOrdered By: Javier Sanchez on 03-16-2024 Oxygen saturation measurement 94 % Low 95-99 [facility] Partial pressure of carbon d ioxide measurementOrdered By: Javier Sanchez on 03-16-2024 Partial pressure of carbon dioxide measurement 44.4 mmHg 35-45 [facility] Partial pressure of oxygen m easurementOrdered By: Javier Sanchez on 03-16-2024 Partial pressure of oxygen measurement 72 mmHG Low 75-100 [facility] Prothrombin timeOrdered By: Javier Sanchez on 03-16-2024 Prothrombin time 13.8 SECONDS 11.7-14.[address] [facility] Serum globulin measurementOr dered By: Javier Sanchez on 03-16-2024 Serum globulin measurement 3.9 g/dL 2.2-4.2 [facility] Total carbon dioxide measure mentOrdered By: Javier Sanchez on 03-16-2024 Total carbon dioxide measurement 30 mmol/L [facility] Total proteinOrdered By: Micky Sanchez on 03-16-2024 Total protein 6.7 g/dL 6.4-8.2 [facility] Troponin IOrdered By: Vidal sarah on 03-16-2024 Troponin I 14 pg/mL 3.0-54.0 [facility] aPTT Coag (PPP) [Time]Ordere d By: Javier Sanchez on 03-16-2024 Activated partial thromboplastin time (aPTT) in platelet poor plasma by coagulation a 28.8 Seconds 24.1-36.2 [facility] pH (Unsp spec)Ordered By: Jaycob Sanchez on 03-16-2024 Measurement, pH 7.42 7.35-7.45 [facility] BNP,B-Type NATRIURETIC PEPTI [place] 12-26-2023 Natriuretic peptide B (Bld) [Mass/Vol] 569.8 pg/mL High 0-100 [facility] Comment on above: Performed By: #### L 100.0100, L506.0400, L503.6005, L503.6620, L501.2450, L501.9520, L500.4050, L501.4020, L501.57835 ####[facility] [address] [place], [place], [id number] CBC W/Diff, Automatedon 10- Absolute Lymph 0.77 X10 3/uL Low 0.83-4.51 [facility] Comment on above: Performed By: #### L 100.0100, L506.0400, L503.6005, L503.6620, L501.2450, L501.9520, L500.4050, L501.4020, L501.85942 ####[facility] [address] [place], [place], [id number]([phone]) Absolute Neut 8.2 X10 3/uL High 2.0-7.7 [facility] Comment on above: Performed By: #### L 100.0100, L506.0400, L503.6005, L503.6620, L501.2450, L501.9520, L500.4050, L501.4020, L501.72789 ####[facility] [address] [place], [place], [id number](976) Basophils/100 WBC (Bld) 0.6 % Normal 0-1 [facility] Comment on above: Performed By: #### L 100.0100, L506.0400, L503.6005, L503.6620, L501.2450, L501.9520, L500.4050, L501.4020, L501.62444 ####[facility] [address] [place], [place], [id number]) Eosinophils/100 WBC (Bld) 1.3 % Normal 0-5 [facility] Comment on above: Performed By: #### L 100.0100, L506.0400, L503.6005, L503.6620, L501.2450, L501.9520, L500.4050, L501.4020, L501.53514 ####[facility] [address] [place], [address] Erythrocyte distribution width (RBC) [Ratio] 16.1 % High 11.6-14.6 [facility] Comment on above: Performed By: #### L 100.0100, L506.0400, L503.6005, L503.6620, L501.2450, L501.9520, L500.4050, L501.4020, L501.74487 ####[facility] [address] [place], [address] Hematocrit (Bld) [Volume fraction] 37.1 % Normal 37-47 [facility] Comment on above: Performed By: #### L 100.0100, L506.0400, L503.6005, L503.6620, L501.2450, L501.9520, L500.4050, L501.4020, L501.50623 ####[facility] [address] [place], [address] Hemoglobin (Bld) [Mass/Vol] 10.8 g/dL Low 12.0-15. 0 [facility] Comment on above: Performed By: #### L 100.0100, L506.0400, L503.6005, L503.6620, L501.2450, L501.9520, L500.4050, L501.4020, L501.17963 ####[facility] [address] [facility] [place], [address] IG% 1.100 High 0.0-0.9 [facility] Comment on above: Result Comment: IG% - Immature Granulocytes (promyelocytes, myelocytes andmetamyelocytes) > 1% indicates that a LEFT SHIFT is Present. Performed By: #### L 100.0100, L506.0400, L503.6005, L503.6620, L501.2450, L501.9520, L500.4050, L501.4020, L501.04703 ####[facility] [address] [place], [address] Lymphocytes/100 WBC (Bld) 7.7 % Low 19-41 [facility] Comment on above: Performed By: #### L 100.0100, L506.0400, L503.6005, L503.6620, L501.2450, L501.9520, L500.4050, L501.4020, L501.53738 ####[facility] [address] [place], [address] MCH (RBC) [Entitic mass] 26.7 pg Low 27.0-32.0 [facility] Comment on above: Performed By: #### L 100.0100, L506.0400, L503.6005, L503.6620, L501.2450, L501.9520, L500.4050, L501.4020, L501.68275 ####[facility] [address] [place], [address] MCHC (RBC) [Mass/Vol] 29.1 g/dL Low 32-36 [facility] Comment on above: Performed By: #### L 100.0100, L506.0400, L503.6005, L503.6620, L501.2450, L501.9520, L500.4050, L501.4020, L501.43032 ####[facility] [address] [place], [address] MCV (RBC) [Entitic vol] 91.6 fL Normal 81-99 [facility] Comment on above: Performed By: #### L 100.0100, L506.0400, L503.6005, L503.6620, L501.2450, L501.9520, L500.4050, L501.4020, L501.10172 ####[facility] [address] [place], [address] Monocytes/100 WBC (Bld) 7.0 % Normal 0-10 [facility] Comment on above: Performed By: #### L 100.0100, L506.0400, L503.6005, L503.6620, L501.2450, L501.9520, L500.4050, L501.4020, L501.34108 ####[facility] [address] [place], [address] Neutrophils/100 WBC (Bld) 82.3 % High 47-70 [facility] Comment on above: Performed By: #### L 100.0100, L506.0400, L503.6005, L503.6620, L501.2450, L501.9520, L500.4050, L501.4020, L501.43347 ####[facility] [address] [place], [address] Nucleated RBC (Bld) [#/Vol] 0 10*3/uL Normal 0-5 [facility] Comment on above: Performed By: #### L 100.0100, L506.0400, L503.6005, L503.6620, L501.2450, L501.9520, L500.4050, L501.4020, L501.19587 ####[facility] [address] [place], [address] Platelet mean volume (Bld) [Entitic vol] 10.5 fL Normal 6.2-12.0 [facility] Comment on above: Performed By: #### L 100.0100, L506.0400, L503.6005, L503.6620, L501.2450, L501.9520, L500.4050, L501.4020, L501.37695 ####[facility] [address] [place], [address] Platelets (Bld) [#/Vol] 299 10*3/uL Normal 150-450 [facility] Comment on above: Performed By: #### L 100.0100, L506.0400, L503.6005, L503.6620, L501.2450, L501.9520, L500.4050, L501.4020, L501.06391 ####[facility] [address] [place], [address] RBC (Bld) [#/Vol] 4.05 10*6/uL Low 4.2-5.4 [facility] Comment on above: Performed By: #### L 100.0100, L506.0400, L503.6005, L503.6620, L501.2450, L501.9520, L500.4050, L501.4020, L501.05755 ####[facility] [address] [place], [place], [id number] RDW SD 53.6 fl High 35.1-43.9 [facility] Comment on above: Performed By: #### L 100.0100, L506.0400, L503.6005, L503.6620, L501.2450, L501.9520, L500.4050, L501.4020, L501.14856 ####[facility] [address] [place], [place], [id number] WBC (Bld) [#/Vol] 10.0 10*3/uL Normal 4.4-11.0 [facility] Comment on above: Performed By: #### L 100.0100, L506.0400, L503.6005, L503.6620, L501.2450, L501.9520, L500.4050, L501.4020, L501.65497 ####[facility] [address] [place], [place], [id number] Chest PA and Lateralon 12-25 Chest PA and Lateral Normal [facility] Comprehensive Metabolic Prof ilon 12-26-2023 Albumin [Mass/Vol] 2.6 g/dL Low 3.2-5.[address] [facility] Comment on above: Order Comment: 'TROP ' Serial specimen #1, #2 or #3: 1 Performed By: #### L 100.0100, L506.0400, L503.6005, L503.6620, L501.2450, L501.9520, L500.4050, L501.4020, L501.79407 ####[facility] [address] [place], [address] Albumin/Globulin [Mass ratio] 0.7 {ratio} Low 0.9-2.4 [facility] Comment on above: Order Comment: 'TROP ' Serial specimen #1, #2 or #3: 1 Performed By: #### L 100.0100, L506.0400, L503.6005, L503.6620, L501.2450, L501.9520, L500.4050, L501.4020, L501.35492 ####[facility] [address] [place], [address] ALK P 108 U/L Normal 45-117 [facility] Comment on above: Order Comment: 'TROP ' Serial specimen #1, #2 or #3: 1 Performed By: #### L 100.0100, L506.0400, L503.6005, L503.6620, L501.2450, L501.9520, L500.4050, L501.4020, L501.64714 ####[facility] [address] [place], [address] ALT [Catalytic activity/Vol] 17 U/L Normal 13-56 [facility] Comment on above: Order Comment: 'TROP ' Serial specimen #1, #2 or #3: 1 Performed By: #### L 100.0100, L506.0400, L503.6005, L503.6620, L501.2450, L501.9520, L500.4050, L501.4020, L501.36989 ####[facility] [address] [place], [address] AST [Catalytic activity/Vol] 11 U/L Low 15-37 [facility] Comment on above: Order Comment: 'TROP ' Serial specimen #1, #2 or #3: 1 Performed By: #### L 100.0100, L506.0400, L503.6005, L503.6620, L501.2450, L501.9520, L500.4050, L501.4020, L501.38444 ####[facility] [address] [place], [address] Bilirubin [Mass/Vol] 0.60 mg/dL Normal 0.20-1.00 [facility] Comment on above: Order Comment: 'TROP ' Serial specimen #1, #2 or #3: 1 Result Comment: For patients on eltrombopag therapy, use of Dimension [place] TBIL is not recommended. Performed By: #### L 100.0100, L506.0400, L503.6005, L503.6620, L501.2450, L501.9520, L500.4050, L501.4020, L501.62247 ####[facility] [address] [place], [place], [phone] BUN/CRE 19.1 RATIO Normal 10-20 [facility] Comment on above: Order Comment: 'TROP ' Serial specimen #1, #2 or #3: 1 Performed By: #### L 100.0100, L506.0400, L503.6005, L503.6620, L501.2450, L501.9520, L500.4050, L501.4020, L501.17628 ####[facility] [address] [place], [address] CA,Total 9.4 mg/dL Normal 8.5-10.1 [facility] Comment on above: Order Comment: 'TROP ' Serial specimen #1, #2 or #3: 1 Performed By: #### L 100.0100, L506.0400, L503.6005, L503.6620, L501.2450, L501.9520, L500.4050, L501.4020, L501.24441 ####[facility] [address] [place], [address] Chloride [Moles/Vol] 109 mmol/L High 98-107 [facility] Comment on above: Order Comment: 'TROP ' Serial specimen #1, #2 or #3: 1 Performed By: #### L 100.0100, L506.0400, L503.6005, L503.6620, L501.2450, L501.9520, L500.4050, L501.4020, L501.12251 ####[facility] [address] [place], [address] CO2 [Moles/Vol] 30.0 mmol/L Normal 21.0-32.0 [facility] Comment on above: Order Comment: 'TROP ' Serial specimen #1, #2 or #3: 1 Performed By: #### L 100.0100, L506.0400, L503.6005, L503.6620, L501.2450, L501.9520, L500.4050, L501.4020, L501.17497 ####[facility] [address] [place], [address] Creatinine [Mass/Vol] 1.36 mg/dL High 0.55-1.02 [facility] Comment on above: Order Comment: 'TROP ' Serial specimen #1, #2 or #3: 1 Result Comment: The validity of the calculated GFR GFRAA in patients over70 years has not been determined. Clinical correlation isessential. Performed By: #### L 100.0100, L506.0400, L503.6005, L503.6620, L501.2450, L501.9520, L500.4050, L501.4020, L501.21981 ####[facility] [address] [place], [address] ECRCL 42.22 ml/min Normal [facility] Comment on above: Order Comment: 'TROP ' Serial specimen #1, #2 or #3: 1 Performed By: #### L 100.0100, L506.0400, L503.6005, L503.6620, L501.2450, L501.9520, L500.4050, L501.4020, L501.39791 ####[facility] [address] [place], [place], [phone] EST GFR - AA 48 mL/min Low >60 [facility] Comment on above: Order Comment: 'TROP ' Serial specimen #1, #2 or #3: 1 Result Comment: Afri can [place]ian GFR Calc Performed By: #### L 100.0100, L506.0400, L503.6005, L503.6620, L501.2450, L501.9520, L500.4050, L501.4020, L501.66426 ####[facility] [address] [place], [address] GAP 5 Normal 5-15 [facility] Comment on above: Order Comment: 'TROP ' Serial specimen #1, #2 or #3: 1 Performed By: #### L 100.0100, L506.0400, L503.6005, L503.6620, L501.2450, L501.9520, L500.4050, L501.4020, L501.60278 ####[facility] [address] [place], [place], [phone]) GFR/1.73 sq M.predicted among non-blacks MDRD (S/P/Bld) [Vol rate/Area] 39 mL/min/{1.73_m2} Low >60 [facility] Comment on above: Order Comment: 'TROP ' Serial specimen #1, #2 or #3: 1 Result Comment: Non- GFR Calc Performed By: #### L 100.0100, L506.0400, L503.6005, L503.6620, L501.2450, L501.9520, L500.4050, L501.4020, L501.37734 ####[facility] [address] [place], [address] Globulin (S) [Mass/Vol] 3.8 g/dL Normal 2.2-4.2 [facility] Comment on above: Order Comment: 'TROP ' Serial specimen #1, #2 or #3: 1 Performed By: #### L 100.0100, L506.0400, L503.6005, L503.6620, L501.2450, L501.9520, L500.4050, L501.4020, L501.43652 ####[facility] [address] [place], [address] Glucose [Mass/Vol] 139 mg/dL High 74-[address] [facility] Comment on above: Order Comment: 'TROP ' Serial specimen #1, #2 or #3: 1 Result Comment: Fast ing Glucose result greater than or equal to 126 mg/dLsuggests DIABETES MELLITUS per A.D.A. criteria. Performed By: #### L 100.0100, L506.0400, L503.6005, L503.6620, L501.2450, L501.9520, L500.4050, L501.4020, L501.81267 ####[facility] [address] [place], [address] Potassium [Moles/Vol] 4.3 mmol/L Normal 3.5-5.1 [facility] Comment on above: Order Comment: 'TROP ' Serial specimen #1, #2 or #3: 1 Performed By: #### L 100.0100, L506.0400, L503.6005, L503.6620, L501.2450, L501.9520, L500.4050, L501.4020, L501.70763 ####[facility] [address] [place], [address] Sodium [Moles/Vol] 144 mmol/L Normal 136-[address] [facility] Comment on above: Order Comment: 'TROP ' Serial specimen #1, #2 or #3: 1 Performed By: #### L 100.0100, L506.0400, L503.6005, L503.6620, L501.2450, L501.9520, L500.4050, L501.4020, L501.93813 ####[facility] [address] [place], [address] T PROT 6.4 g/dL Normal 6.4-8.2 [facility] Comment on above: Order Comment: 'TROP ' Serial specimen #1, #2 or #3: 1 Performed By: #### L 100.0100, L506.0400, L503.6005, L503.6620, L501.2450, L501.9520, L500.4050, L501.4020, L501.88842 ####[facility] [address] [place], [address] Urea nitrogen [Mass/Vol] 26 mg/dL High 7-18 [facility] Comment on above: Order Comment: 'TROP ' Serial specimen #1, #2 or #3: 1 Performed By: #### L 100.0100, L506.0400, L503.6005, L503.6620, L501.2450, L501.9520, L500.4050, L501.4020, L501.83664 ####[facility] [address] [place], [address] Free T3on 12-26-2023 Free T3 [Mass/Vol] 2.1 pg/mL Low 2.18-3.[address] [facility] Comment on above: Order Comment: 'TROP ' Serial specimen #1, #2 or #3: 1 Performed By: #### L 100.0100, L506.0400, L503.6005, L503.6620, L501.2450, L501.9520, L500.4050, L501.4020, L501.58268 ####[facility] [address] [place], [address] L501.4020on 12-26-2023 TROPONIN-I HS 20 pg/mL Normal 3.0-54.0 [facility] Comment on above: Order Comment: 'TROP ' Serial specimen #1, #2 or #3: 1 Result Comment: Plekathleen chavez Note: New Test Units and Gender Specific Reference Ranges. For more information see Policy Stat Procedure [place] High Sensitivity Troponin (TNIH) and attachments. Performed By: #### L 100.0100, L506.0400, L503.6005, L503.6620, L501.2450, L501.9520, L500.4050, L501.4020, L501.03055 ####[facility] [address] [place], [place], [phone] Lactic Acidon 12-26-2023 Lactate [Moles/Vol] 1.0 mmol/L Normal 0.4-1.9 [facility] Comment on above: Order Comment: Y Performed By: #### L 100.0100, L506.0400, L503.6005, L503.6620, L501.2450, L501.9520, L500.4050, L501.4020, L501.11900 ####[facility] [address] [place], [place], [phone] Lipaseon 12-26-2023 Lipase [Catalytic activity/Vol] 31 U/L Normal 13-75 [facility] Comment on above: Order Comment: 'TROP ' Serial specimen #1, #2 or #3: 1 Result Comment: Danny chavez note:LIPASE revised reference range effective 22.New Lipase methodology. Expected to produce lower valuesthan the previous assay method.NEW Reference Range: 13 - 75 U/L Performed By: #### L 100.0100, L506.0400, L503.6005, L503.6620, L501.2450, L501.9520, L500.4050, L501.4020, L501.95902 ####[facility] [address] [place], [place], [phone] M100.678on 12-26-2023 M100.678 Pending SARS-CoV-2 (COVID 19) Negative INFLUENZA A Negative INFLUENZA B Negative RSV PCR Negative Normal [facility] Comment on above: Performed By: #### M 100.678 ####[facility] [address], [address] T4 Free Directon 12-26-2023 T4 FREE DIRECT 2.20 ng/dL High 0.76-1.46 [facility] Comment on above: Order Comment: 'TROP ' Serial specimen #1, #2 or #3: 1 Performed By: #### L 100.0100, L506.0400, L503.6005, L503.6620, L501.2450, L501.9520, L500.4050, L501.4020, L501.89467 ####[facility] [address] [place], [address] Thyroid Stim Hormone (TSH)on 12-26-2023 TSH 0.694 uIU/mL Normal 0.358-3.74 0 [facility] Comment on above: Order Comment: 'TROP ' Serial specimen #1, #2 or #3: 1 Performed By: #### L 100.0100, L506.0400, L503.6005, L503.6620, L501.2450, L501.9520, L500.4050, L501.4020, L501.35709 ####[facility] [address] [place], [address] Urinalysis, Completeon 12-25 BACTERIA 2+ /hpf Normal None Seen [facility] Comment on above: Order Comment: CLEAN CATCH Performed By: #### L 400.0001 ####[facility] [address], [address] Mucus Ql (Urine sed) 1+ /hpf Normal [facility] Comment on above: Order Comment: CLEAN CATCH Performed By: #### L 400.0001 ####[facility] [address], [address] EPI,SQUAMOUS 5-10 SEEN Normal 5-10 [facility] Comment on above: Order Comment: CLEAN CATCH Performed By: #### L 400.0001 ####[facility] [address] [place], [address] WBC 5-10 SEEN Normal 0-5 [facility] Comment on above: Order Comment: CLEAN CATCH Performed By: #### L 400.0001 ####[facility] [address] [place], [address] RBC 0 SEEN Normal 0-5 [facility] Comment on above: Order Comment: CLEAN CATCH Performed By: #### L 400.0001 ####[facility] [address] [place], [address] Chest Insp/Exp 2 Viewon 0 Chest Insp/Exp 2 View Normal [facility] Thoracentesis W USon 024 Thoracentesis W US Normal [facility] Pulmonary Visit Reporton Pulmonary Visit Report Normal [facility] CBC W/Diff, Automatedon 11-17 Absolute Lymph 0.94 X10 3/uL Normal 0.83-4.51 [facility] Comment on above: Performed By: #### L 100.0100, L500.4050 ####[facility] [address] [place], [address] Absolute Neut 9.4 X10 3/uL High 2.0-7.7 [facility] Comment on above: Performed By: #### L 100.0100, L500.4050 ####[facility] [address] [place], [address] Basophils/100 WBC (Bld) 0.5 % Normal 0-1 [facility] Comment on above: Performed By: #### L 100.0100, L500.4050 ####[facility] [address] [place], [address] Eosinophils/100 WBC (Bld) 1.4 % Normal 0-5 [facility] Comment on above: Performed By: #### L 100.0100, L500.4050 ####[facility] [address] [place], [address] Erythrocyte distribution width (RBC) [Ratio] 16.0 % High 11.6-14.6 [facility] Comment on above: Performed By: #### L 100.0100, L500.4050 ####[facility] [address] [place], [address] Hematocrit (Bld) [Volume fraction] 35.4 % Low 37-47 [facility] Comment on above: Performed By: #### L 100.0100, L500.4050 ####[facility] [address] [place], [address] Hemoglobin (Bld) [Mass/Vol] 10.5 g/dL Low 12.0-15. 0 [facility] Comment on above: Performed By: #### L 100.0100, L500.4050 ####[facility] [address] [place], [address] IG% 1.100 High 0.0-0.9 [facility] Comment on above: Result Comment: IG% - Immature Granulocytes (promyelocytes, myelocytes andmetamyelocytes) > 1% indicates that a LEFT SHIFT is Present. Performed By: #### L 100.0100, L500.4050 ####[facility] [address] [place], [address] Lymphocytes/100 WBC (Bld) 8.2 % Low 19-41 [facility] Comment on above: Performed By: #### L 100.0100, L500.4050 ####[facility] [address] [place], [address] MCH (RBC) [Entitic mass] 26.9 pg Low 27.0-32.0 [facility] Comment on above: Performed By: #### L 100.0100, L500.4050 ####[facility] [address] [place], [address] MCHC (RBC) [Mass/Vol] 29.7 g/dL Low 32-36 [facility] Comment on above: Performed By: #### L 100.0100, L500.4050 ####[facility] [address] [place], [address] MCV (RBC) [Entitic vol] 90.8 fL Normal 81-99 [facility] Comment on above: Performed By: #### L 100.0100, L500.4050 ####[facility] [address] [place], [address] Monocytes/100 WBC (Bld) 6.7 % Normal 0-10 [facility] Comment on above: Performed By: #### L 100.0100, L500.4050 ####[facility] [address] [place], [address] Neutrophils/100 WBC (Bld) 82.1 % High 47-70 [facility] Comment on above: Performed By: #### L 100.0100, L500.4050 ####[facility] [address] [place], [address] Nucleated RBC (Bld) [#/Vol] 0 10*3/uL Normal 0-5 [facility] Comment on above: Performed By: #### L 100.0100, L500.4050 ####[facility] [address] [place], [address] Platelet mean volume (Bld) [Entitic vol] 10.0 fL Normal 6.2-12.0 [facility] Comment on above: Performed By: #### L 100.0100, L500.4050 ####[facility] [address] [place], [address] Platelets (Bld) [#/Vol] 321 10*3/uL Normal 150-450 [facility] Comment on above: Performed By: #### L 100.0100, L500.4050 ####[facility] [address] [place], [address] RBC (Bld) [#/Vol] 3.90 10*6/uL Low 4.2-5.4 [facility] Comment on above: Performed By: #### L 100.0100, L500.4050 ####[facility] [address] [place], [address] RDW SD 53.2 fl High 35.1-43.9 [facility] Comment on above: Performed By: #### L 100.0100, L500.4050 ####[facility] [address] [place], [address] WBC (Bld) [#/Vol] 11.4 10*3/uL High 4.4-11.0 [facility] Comment on above: Performed By: #### L 100.0100, L500.4050 ####[facility] [address] [place], [address] Comprehensive Metabolic Prof [facility] 12-10-2023 Albumin [Mass/Vol] 2.5 g/dL Low 3.2-5.[address] [facility] Comment on above: Performed By: #### L 100.0100, L500.4050 ####[facility] [address] [place], [address] Albumin/Globulin [Mass ratio] 0.7 {ratio} Low 0.9-2.4 [facility] Comment on above: Performed By: #### L 100.0100, L500.4050 ####[facility] [address] [place], [address] ALK P 92 U/L Normal 45-117 [facility] Comment on above: Performed By: #### L 100.0100, L500.4050 ####[facility] [address] [place], [address] ALT [Catalytic activity/Vol] 15 U/L Normal 13-56 [facility] Comment on above: Performed By: #### L 100.0100, L500.4050 ####[facility] [address] [place], [address] AST [Catalytic activity/Vol] 10 U/L Low 15-37 [facility] Comment on above: Performed By: #### L 100.0100, L500.4050 ####[facility] [address] [place], [address] Bilirubin [Mass/Vol] 0.40 mg/dL Normal 0.20-1.00 [facility] Comment on above: Result Comment: For patients on eltrombopag therapy, use of Dimension [place] TBIL is not recommended. Performed By: #### L 100.0100, L500.4050 ####[facility] [address] [place], [address] BUN/CRE 15.5 RATIO Normal 10-20 [facility] Comment on above: Performed By: #### L 100.0100, L500.4050 ####[facility] [address] [place], [address] CA,Total 9.2 mg/dL Normal 8.5-10.1 [facility] Comment on above: Performed By: #### L 100.0100, L500.4050 ####[facility] [address] [place], [address] Chloride [Moles/Vol] 106 mmol/L Normal 98-107 [facility] Comment on above: Performed By: #### L 100.0100, L500.4050 ####[facility] [address] [place], [address] CO2 [Moles/Vol] 32.0 mmol/L Normal 21.0-32.0 [facility] Comment on above: Performed By: #### L 100.0100, L500.4050 ####[facility] [address] [place], [address] Creatinine [Mass/Vol] 1.48 mg/dL High 0.55-1.02 [facility] Comment on above: Result Comment: The validity of the calculated GFR GFRAA in patients over70 years has not been determined. Clinical correlation isessential. Performed By: #### L 100.0100, L500.4050 ####[facility] [address] [place], [address] EST GFR - AA 43 mL/min Low >60 [facility] Comment on above: Result Comment: Afri can [place] GFR Calc Performed By: #### L 100.0100, L500.4050 ####[facility] [address] [place], [address] GAP 4 Low 5-15 [facility] Comment on above: Performed By: #### L 100.0100, L500.4050 ####[facility] [address] [place], [address] GFR/1.73 sq M.predicted among non-blacks MDRD (S/P/Bld) [Vol rate/Area] 36 mL/min/{1.73_m2} Low >60 [facility] Comment on above: Result Comment: Non- GFR Calc Performed By: #### L 100.0100, L500.4050 ####[facility] [address] [place], [address] Globulin (S) [Mass/Vol] 3.6 g/dL Normal 2.2-4.2 [facility] Comment on above: Performed By: #### L 100.0100, L500.4050 ####[facility] [address] [place], [address] Glucose [Mass/Vol] 181 mg/dL High 74-[address] [facility] Comment on above: Result Comment: Fast ing Glucose result greater than or equal to 126 mg/dLsuggests DIABETES MELLITUS per A.D.A. criteria. Performed By: #### L 100.0100, L500.4050 ####[facility] [address] [place], [address] Potassium [Moles/Vol] 3.9 mmol/L Normal 3.5-5.1 [facility] Comment on above: Performed By: #### L 100.0100, L500.4050 ####[facility] [address] [place], [address] Sodium [Moles/Vol] 142 mmol/L Normal 136-[address] [facility] Comment on above: Performed By: #### L 100.0100, L500.4050 ####[facility] [address] [place], [address] T PROT 6.1 g/dL Low 6.4-8.2 [facility] Comment on above: Performed By: #### L 100.0100, L500.4050 ####[facility] [address] [place], [address] Urea nitrogen [Mass/Vol] 23 mg/dL High 7-18 [facility] Comment on above: Performed By: #### L 100.0100, L500.4050 ####[facility] [address] [place], [address] Culture, Blood (WB)on 2023 CUB Blood cultures x2, from two different sites No growth in 5 days. Normal [facility] Comment on above: Performed By: #### M 200.1000 ####[facility] [address] [place], [address] Wound Cultureon 12-06-2023 WC Normal [facility] Comment on above: Performed By: #### M 100.2000, M100.3000 ####[facility] [address] [place], [address] Bedside Glucoseon 12-05-2023 FINGERSTICK GLU 139 mg/dL High 74-106 [facility] Comment on above: Result Comment: ADELFO GEMENT OF PATIENT CARE PER NURSING PROTOCOL Performed By: #### L 501.080 ####[facility] [address] [place], [address] FINGERSTICK GLU 170 mg/dL High 74-106 [facility] Comment on above: Result Comment: ADELFO GEMENT OF PATIENT CARE PER NURSING PROTOCOL Performed By: #### L 501.080 ####[facility] [address] [place], [address] Discharge Instructionon 11-16 Discharge Instruction Normal [facility] Basic Metabolic Profile (BMP )on 12-04-2023 BUN/CRE 20.8 RATIO High 10-20 [facility] Comment on above: Performed By: #### L 500.2500, L100.0500 ####[facility] [address] [place], [address] CA,Total 8.8 mg/dL Normal 8.5-10.1 [facility] Comment on above: Performed By: #### L 500.2500, L100.0500 ####[facility] [address] [place], [address] Chloride [Moles/Vol] 108 mmol/L High 98-107 [facility] Comment on above: Performed By: #### L 500.2500, L100.0500 ####[facility] [address] [place], [address] CO2 [Moles/Vol] 26.0 mmol/L Normal 21.0-32.0 [facility] Comment on above: Performed By: #### L 500.2500, L100.0500 ####[facility] [address] [place], [address] Creatinine [Mass/Vol] 1.92 mg/dL High 0.55-1.02 [facility] Comment on above: Result Comment: The validity of the calculated GFR GFRAA in patients over70 years has not been determined. Clinical correlation isessential. Performed By: #### L 500.2500, L100.0500 ####[facility] [address] [place], [address] ECRCL 29.44 ml/min Normal [facility] Comment on above: Performed By: #### L 500.2500, L100.0500 ####[facility] [address] [place], [address] EST GFR - AA 32 mL/min Low >60 [facility] Comment on above: Result Comment: Afri can Malawian GFR Calc Performed By: #### L 500.2500, L100.0500 ####[facility] [address] [place], [address] GAP 7 Normal 5-15 [facility] Comment on above: Performed By: #### L 500.2500, L100.0500 ####[facility] [address] [place], [address] GFR/1.73 sq M.predicted among non-blacks MDRD (S/P/Bld) [Vol rate/Area] 26 mL/min/{1.73_m2} Low >60 [facility] Comment on above: Result Comment: Non- GFR Calc Performed By: #### L 500.2500, L100.0500 ####[facility] [address] [place], [address] Glucose [Mass/Vol] 158 mg/dL High 74-[address] [facility] Comment on above: Result Comment: Fast ing Glucose result greater than or equal to 126 mg/dLsuggests DIABETES MELLITUS per A.D.A. criteria. Performed By: #### L 500.2500, L100.0500 ####[facility] [address] [place], [address] Potassium [Moles/Vol] 4.6 mmol/L Normal 3.5-5.1 [facility] Comment on above: Performed By: #### L 500.2500, L100.0500 ####[facility] [address] [place], [address] Sodium [Moles/Vol] 141 mmol/L Normal 136-[address] [facility] Comment on above: Performed By: #### L 500.2500, L100.0500 ####[facility] [address] [place], [address] Urea nitrogen [Mass/Vol] 40 mg/dL High 7-18 [facility] Comment on above: Performed By: #### L 500.2500, L100.0500 ####[facility] [address] [place], [address] Bedside Glucoseon 12-04-2023 FINGERSTICK GLU 198 mg/dL High [address] Comment on above: Result Comment: ADELFO GEMENT OF PATIENT CARE PER NURSING PROTOCOL Performed By: #### L 501.080 ####[facility] [address] [place], [address] FINGERSTICK GLU 169 mg/dL High -106 [facility] Comment on above: Result Comment: ADELFO GEMENT OF PATIENT CARE PER NURSING PROTOCOL Performed By: #### L 501.080 ####[facility] [address] [place], [address] FINGERSTICK GLU 161 mg/dL High 74-106 [facility] Comment on above: Result Comment: ADELFO GEMENT OF PATIENT CARE PER NURSING PROTOCOL Performed By: #### L 501.080 ####[facility] [address] [place], [address] FINGERSTICK GLU 138 mg/dL High 74-106 [facility] Comment on above: Result Comment: ADELFO GEMENT OF PATIENT CARE PER NURSING PROTOCOL Performed By: #### L 501.080 ####[facility] [address] [place], [address] CBC-Complete Blood Cnt No Di ffon 12-04-2023 Erythrocyte distribution width (RBC) [Ratio] 15.7 % High 11.6-14.6 [facility] Comment on above: Performed By: #### L 500.2500, L100.0500 ####[facility] [address] [place], [address] Hematocrit (Bld) [Volume fraction] 33.4 % Low 37-47 [facility] Comment on above: Performed By: #### L 500.2500, L100.0500 ####[facility] [address] [place], [address] Hemoglobin (Bld) [Mass/Vol] 10.0 g/dL Low 12.0-15. 0 [facility] Comment on above: Performed By: #### L 500.2500, L100.0500 ####[facility] [address] [place], [address] MCH (RBC) [Entitic mass] 27.5 pg Normal 27.0-32.0 [facility] Comment on above: Performed By: #### L 500.2500, L100.0500 ####[facility] [address] [place], [address] MCHC (RBC) [Mass/Vol] 29.9 g/dL Low 32-36 [facility] Comment on above: Performed By: #### L 500.2500, L100.0500 ####[facility] [address] [place], [address] MCV (RBC) [Entitic vol] 91.8 fL Normal 81-99 [facility] Comment on above: Performed By: #### L 500.2500, L100.0500 ####[facility] [address] [place], [address] Platelet mean volume (Bld) [Entitic vol] 10.0 fL Normal 6.2-12.0 [facility] Comment on above: Performed By: #### L 500.2500, L100.0500 ####[facility] [address] [place], [address] Platelets (Bld) [#/Vol] 280 10*3/uL Normal 150-450 [facility] Comment on above: Performed By: #### L 500.2500, L100.0500 ####[facility] [address] [place], [address] RBC (Bld) [#/Vol] 3.64 10*6/uL Low 4.2-5.4 [facility] Comment on above: Performed By: #### L 500.2500, L100.0500 ####[facility] [address] [place], [address] RDW SD 53.4 fl High 35.1-43.9 [facility] Comment on above: Performed By: #### L 500.2500, L100.0500 ####[facility] [address] [place], [address] WBC (Bld) [#/Vol] 7.3 10*3/uL Normal 4.4-11.[address] [facility] Comment on above: Performed By: #### L 500.2500, L100.0500 ####[facility] [address] [place], [address] Vancomycin, Trough Levelon 0 9-18-2024 VANCO, TROUGH 18.8 ug/mL High 5.0-15.0 [facility] Comment on above: Order Comment: Comme nts: Trough to be drawn 30 mins prior to scheduled [id number] Result Comment: VANC OMYCIN STANDARED DRUG THERAPY TROUGH LEVEL: 5.0 - 15.0 mg/LVANCOMYCIN HIGH INTENSITY THERAPY TROUGH LEVEL: 15.0 - 20.0 mg/LHigh Intensity therapy recommended for serious lifethreatening infections include:- Fseumkeuwd-Moyfjcckhikn-Uwdajhpba (Ventilator/Healtcare Associated)-SepsisPLEASE CONTACT PHARMACY SERVICES (#9848) FOR INTERPRETATIONOF RESULTS. Performed By: #### L 501.8820 ####[facility] [address] [facility] [address] Bedside Glucoseon 12-03-2023 FINGERSTICK GLU 225 mg/dL High 74-106 [facility] Comment on above: Result Comment: ADELFO GEMENT OF PATIENT CARE PER NURSING PROTOCOL Performed By: #### L 501.080 ####[facility] [address] [facility] [address] FINGERSTICK GLU 114 mg/dL High 74-106 [facility] Comment on above: Result Comment: ADELFO GEMENT OF PATIENT CARE PER NURSING PROTOCOL Performed By: #### L 501.080 ####[facility] [address] [facility] [address] FINGERSTICK GLU 206 mg/dL High 74-106 [facility] Comment on above: Result Comment: ADELFO GEMENT OF PATIENT CARE PER NURSING PROTOCOL Performed By: #### L 501.080 ####[facility] [address] [facility] [address] FINGERSTICK GLU 135 mg/dL High -106 [facility] Comment on above: Result Comment: ADELFO GEMENT OF PATIENT CARE PER NURSING PROTOCOL Performed By: #### L 501.080 ####[facility] [address] [facility] [address] FINGERSTICK GLU 187 mg/dL High -106 [facility] Comment on above: Result Comment: ADELFO DOWNS OF PATIENT CARE PER NURSING PROTOCOL Performed By: #### L 501.080 ####[facility] [address] [place], [address] CBC W/Diff, Automatedon 11-16 Absolute Lymph 0.76 X10 3/uL Low 0.83-4.51 [facility] Comment on above: Performed By: #### L 100.0100, L500.4050, L501.9985, L501.5200, L501.2300 ####[facility] [address] [place], [address] Absolute Neut 5.4 X10 3/uL Normal 2.0-7.7 [facility] Comment on above: Performed By: #### L 100.0100, L500.4050, L501.9985, L501.5200, L501.2300 ####[facility] [address] [place], [address] Basophils/100 WBC (Bld) 0.7 % Normal 0-1 [facility] Comment on above: Performed By: #### L 100.0100, L500.4050, L501.9985, L501.5200, L501.2300 ####[facility] [address] [place], [address] Eosinophils/100 WBC (Bld) 2.4 % Normal 0-5 [facility] Comment on above: Performed By: #### L 100.0100, L500.4050, L501.9985, L501.5200, L501.2300 ####[facility] [address] [place], [address] Erythrocyte distribution width (RBC) [Ratio] 15.7 % High 11.6-14.6 [facility] Comment on above: Performed By: #### L 100.0100, L500.4050, L501.9985, L501.5200, L501.2300 ####[facility] [address] [place], [address] Hematocrit (Bld) [Volume fraction] 33.4 % Low 37-47 [facility] Comment on above: Performed By: #### L 100.0100, L500.4050, L501.9985, L501.5200, L501.2300 ####[facility] [address] [place], [address] Hemoglobin (Bld) [Mass/Vol] 9.9 g/dL Low 12.0-15. 0 [facility] Comment on above: Performed By: #### L 100.0100, L500.4050, L501.9985, L501.5200, L501.2300 ####[facility] [address] [place], [address] IG% 1.300 High 0.0-0.9 [facility] Comment on above: Result Comment: IG% - Immature Granulocytes (promyelocytes, myelocytes andmetamyelocytes) > 1% indicates that a LEFT SHIFT is Present. Performed By: #### L 100.0100, L500.4050, L501.9985, L501.5200, L501.2300 ####[facility] [address] [place], [address] Lymphocytes/100 WBC (Bld) 10.6 % Low 19-41 [facility] Comment on above: Performed By: #### L 100.0100, L500.4050, L501.9985, L501.5200, L501.2300 ####[facility] [address] [place], [address] MCH (RBC) [Entitic mass] 27.2 pg Normal 27.0-32.0 [facility] Comment on above: Performed By: #### L 100.0100, L500.4050, L501.9985, L501.5200, L501.2300 ####[facility] [address] [place], [address] MCHC (RBC) [Mass/Vol] 29.6 g/dL Low 32-36 [facility] Comment on above: Performed By: #### L 100.0100, L500.4050, L501.9985, L501.5200, L501.2300 ####[facility] [address] [place], [address] MCV (RBC) [Entitic vol] 91.8 fL Normal 81-99 [facility] Comment on above: Performed By: #### L 100.0100, L500.4050, L501.9985, L501.5200, L501.2300 ####[facility] [address] [place], [address] Monocytes/100 WBC (Bld) 9.2 % Normal 0-10 [facility] Comment on above: Performed By: #### L 100.0100, L500.4050, L501.9985, L501.5200, L501.2300 ####[facility] [address] [place], [address] Neutrophils/100 WBC (Bld) 75.8 % High 47-70 [facility] Comment on above: Performed By: #### L 100.0100, L500.4050, L501.9985, L501.5200, L501.2300 ####[facility] [address] [place], [address] Nucleated RBC (Bld) [#/Vol] 0 10*3/uL Normal 0-5 [facility] Comment on above: Performed By: #### L 100.0100, L500.4050, L501.9985, L501.5200, L501.2300 ####[facility] [address] [place], [address] Platelet mean volume (Bld) [Entitic vol] 10.3 fL Normal 6.2-12.0 [facility] Comment on above: Performed By: #### L 100.0100, L500.4050, L501.9985, L501.5200, L501.2300 ####[facility] [address] [place], [address] Platelets (Bld) [#/Vol] 282 10*3/uL Normal 150-450 [facility] Comment on above: Performed By: #### L 100.0100, L500.4050, L501.9985, L501.5200, L501.2300 ####[facility] [address] [place], [address] RBC (Bld) [#/Vol] 3.64 10*6/uL Low 4.2-5.4 [facility] Comment on above: Performed By: #### L 100.0100, L500.4050, L501.9985, L501.5200, L501.2300 ####[facility] [address] [place], [address] RDW SD 53.1 fl High 35.1-43.9 [facility] Comment on above: Performed By: #### L 100.0100, L500.4050, L501.9985, L501.5200, L501.2300 ####[facility] [address] [place], [address] WBC (Bld) [#/Vol] 7.2 10*3/uL Normal 4.4-11.[address] [facility] Comment on above: Performed By: #### L 100.0100, L500.4050, L501.9985, L501.5200, L501.2300 ####[facility] [address] [place], [address] Comprehensive Metabolic Prof keira 12-03-2023 Albumin [Mass/Vol] 2.1 g/dL Low 3.2-5.[address] [facility] Comment on above: Performed By: #### L 100.0100, L500.4050, L501.9985, L501.5200, L501.2300 ####[facility] [address] [place], [address] Albumin/Globulin [Mass ratio] 0.6 {ratio} Low 0.9-2.4 [facility] Comment on above: Performed By: #### L 100.0100, L500.4050, L501.9985, L501.5200, L501.2300 ####[facility] [address] [place], [address] ALK P 82 U/L Normal 45-117 [facility] Comment on above: Performed By: #### L 100.0100, L500.4050, L501.9985, L501.5200, L501.2300 ####[facility] [address] [place], [address] ALT [Catalytic activity/Vol] 15 U/L Normal 13-56 [facility] Comment on above: Performed By: #### L 100.0100, L500.4050, L501.9985, L501.5200, L501.2300 ####[facility] [address] [place], [address] AST [Catalytic activity/Vol] 9 U/L Low 15-37 [facility] Comment on above: Performed By: #### L 100.0100, L500.4050, L501.9985, L501.5200, L501.2300 ####[facility] [address] [place], [address] Bilirubin [Mass/Vol] 0.30 mg/dL Normal 0.20-1.00 [facility] Comment on above: Result Comment: For patients on eltrombopag therapy, use of Dimension [place] TBIL is not recommended. Performed By: #### L 100.0100, L500.4050, L501.9985, L501.5200, L501.2300 ####[facility] [address] [place], [address] BUN/CRE 19.0 RATIO Normal 10-20 [facility] Comment on above: Performed By: #### L 100.0100, L500.4050, L501.9985, L501.5200, L501.2300 ####[facility] [address] [place], [address] CA,Total 8.9 mg/dL Normal 8.5-10.1 [facility] Comment on above: Performed By: #### L 100.0100, L500.4050, L501.9985, L501.5200, L501.2300 ####[facility] [address] [place], [address] Chloride [Moles/Vol] 107 mmol/L Normal 98-107 [facility] Comment on above: Performed By: #### L 100.0100, L500.4050, L501.9985, L501.5200, L501.2300 ####[facility] [address] [place], [address] CO2 [Moles/Vol] 26.0 mmol/L Normal 21.0-32.0 [facility] Comment on above: Performed By: #### L 100.0100, L500.4050, L501.9985, L501.5200, L501.2300 ####[facility] [address] [place], [address] Creatinine [Mass/Vol] 1.84 mg/dL High 0.55-1.02 [facility] Comment on above: Result Comment: The validity of the calculated GFR GFRAA in patients over70 years has not been determined. Clinical correlation isessential. Performed By: #### L 100.0100, L500.4050, L501.9985, L501.5200, L501.2300 ####[facility] [address] [place], [address] ECRCL 30.72 ml/min Normal [facility] Comment on above: Performed By: #### L 100.0100, L500.4050, L501.9985, L501.5200, L501.2300 ####[facility] [address] [place], [address] EST GFR - AA 34 mL/min Low >60 [facility] Comment on above: Result Comment: Afri can Malawian GFR Calc Performed By: #### L 100.0100, L500.4050, L501.9985, L501.5200, L501.2300 ####[facility] [address] [place], [address] GAP 9 Normal 5-15 [facility] Comment on above: Performed By: #### L 100.0100, L500.4050, L501.9985, L501.5200, L501.2300 ####[facility] [address] [place], [address] GFR/1.73 sq M.predicted among non-blacks MDRD (S/P/Bld) [Vol rate/Area] 28 mL/min/{1.73_m2} Low >60 [facility] Comment on above: Result Comment: Non- GFR Calc Performed By: #### L 100.0100, L500.4050, L501.9985, L501.5200, L501.2300 ####[facility] [address] [place], [address] Globulin (S) [Mass/Vol] 3.5 g/dL Normal 2.2-4.2 [facility] Comment on above: Performed By: #### L 100.0100, L500.4050, L501.9985, L501.5200, L501.2300 ####[facility] [address] [place], [address] Glucose [Mass/Vol] 145 mg/dL High 74-[address] [facility] Comment on above: Result Comment: Fast ing Glucose result greater than or equal to 126 mg/dLsuggests DIABETES MELLITUS per A.D.A. criteria. Performed By: #### L 100.0100, L500.4050, L501.9985, L501.5200, L501.2300 ####[facility] [address] [place], [address] Potassium [Moles/Vol] 3.9 mmol/L Normal 3.5-5.1 [facility] Comment on above: Performed By: #### L 100.0100, L500.4050, L501.9985, L501.5200, L501.2300 ####[facility] [address] [place], [address] Sodium [Moles/Vol] 142 mmol/L Normal 136-[address] [facility] Comment on above: Performed By: #### L 100.0100, L500.4050, L501.9985, L501.5200, L501.2300 ####[facility] [address] [place], [address] T PROT 5.6 g/dL Low 6.4-8.2 [facility] Comment on above: Performed By: #### L 100.0100, L500.4050, L501.9985, L501.5200, L501.2300 ####[facility] [address] [place], [address] Urea nitrogen [Mass/Vol] 35 mg/dL High 7-18 [facility] Comment on above: Performed By: #### L 100.0100, L500.4050, L501.9985, L501.5200, L501.2300 ####[facility] [address] [place], [address] Consultation - Infectious Dx on 12-03-2023 Consultation - Infectious Dx Normal [facility] Gram Stainon 12-03-2023 GS List Antibiotics [place] t 48 Hours? [place] SENT LABEL TO MS3 TO COLLECT Gram Stain 2+ Red Blood Cells No organisms seen No Epithelial cells No White Blood Cells Normal [facility] Comment on above: Performed By: #### M 100.2000, M100.3000 ####[facility] [address] [place], [address] Hemoglobin A1con 12-03-2023 HbA1c (Bld) [Mass fraction] 8.2 % High 3.8-5.6 [facility] Comment on above: Result Comment: Norm al < 5.7 % Prediabetic 5.7 - 6.4 % Diabetic >or= 6.5 % Please note range changes. Performed By: #### L 100.0100, L500.4050, L501.9985, L501.5200, L501.2300 ####[facility] [address] [place], [address] Magnesiumon 12-03-2023 Magnesium [Mass/Vol] 2.0 mg/dL Normal 1.6-2.6 [facility] Comment on above: Performed By: #### L 100.0100, L500.4050, L501.9985, L501.5200, L501.2300 ####[facility] [address] [place], [address] Phosphoruson 12-03-2023 Phosphate [Mass/Vol] 3.9 mg/dL Normal 2.5-4.9 [facility] Comment on above: Performed By: #### L 100.0100, L500.4050, L501.9985, L501.5200, L501.2300 ####[facility] [address] [place], [address] Bedside Glucoseon 12-02-2023 FINGERSTICK GLU 119 mg/dL High 74-106 [facility] Comment on above: Result Comment: ADELFO DOWNS OF PATIENT CARE PER NURSING PROTOCOL Performed By: #### L 501.080 ####[facility] [address] [place], [address] CBC W/Diff, Automatedon 11-16 Absolute Lymph 0.82 X10 3/uL Low 0.83-4.51 [facility] Comment on above: Performed By: #### L 503.6005, L501.6710, L101.9900, L300.4310, L500.4050, L100.0100, L300.3900 ####[facility] [address] [place], [address] Absolute Neut 8.1 X10 3/uL High 2.0-7.7 [facility] Comment on above: Performed By: #### L 503.6005, L501.6710, L101.9900, L300.4310, L500.4050, L100.0100, L300.3900 ####[facility] [address] [place], [address] Basophils/100 WBC (Bld) 0.7 % Normal 0-1 [facility] Comment on above: Performed By: #### L 503.6005, L501.6710, L101.9900, L300.4310, L500.4050, L100.0100, L300.3900 ####[facility] [address] [place], [address] Eosinophils/100 WBC (Bld) 1.4 % Normal 0-5 [facility] Comment on above: Performed By: #### L 503.6005, L501.6710, L101.9900, L300.4310, L500.4050, L100.0100, L300.3900 ####[facility] [address] [place], [address] Erythrocyte distribution width (RBC) [Ratio] 15.4 % High 11.6-14.6 [facility] Comment on above: Performed By: #### L 503.6005, L501.6710, L101.9900, L300.4310, L500.4050, L100.0100, L300.3900 ####[facility] [address] [place], [address] Hematocrit (Bld) [Volume fraction] 36.2 % Low 37-47 [facility] Comment on above: Performed By: #### L 503.6005, L501.6710, L101.9900, L300.4310, L500.4050, L100.0100, L300.3900 ####[facility] [address] [place], [address] Hemoglobin (Bld) [Mass/Vol] 10.9 g/dL Low 12.0-15. 0 [facility] Comment on above: Performed By: #### L 503.6005, L501.6710, L101.9900, L300.4310, L500.4050, L100.0100, L300.3900 ####[facility] [address] [place], [address] IG% 1.300 High 0.0-0.9 [facility] Comment on above: Result Comment: IG% - Immature Granulocytes (promyelocytes, myelocytes andmetamyelocytes) > 1% indicates that a LEFT SHIFT is Present. Performed By: #### L 503.6005, L501.6710, L101.9900, L300.4310, L500.4050, L100.0100, L300.3900 ####[facility] [address] [place], [address] Lymphocytes/100 WBC (Bld) 8.2 % Low 19-41 [facility] Comment on above: Performed By: #### L 503.6005, L501.6710, L101.9900, L300.4310, L500.4050, L100.0100, L300.3900 ####[facility] [address] [place], [address] MCH (RBC) [Entitic mass] 27.3 pg Normal 27.0-32.0 [facility] Comment on above: Performed By: #### L 503.6005, L501.6710, L101.9900, L300.4310, L500.4050, L100.0100, L300.3900 ####[facility] [address] [place], [address] MCHC (RBC) [Mass/Vol] 30.1 g/dL Low 32-36 [facility] Comment on above: Performed By: #### L 503.6005, L501.6710, L101.9900, L300.4310, L500.4050, L100.0100, L300.3900 ####[facility] [address] [place], [address] MCV (RBC) [Entitic vol] 90.5 fL Normal 81-99 [facility] Comment on above: Performed By: #### L 503.6005, L501.6710, L101.9900, L300.4310, L500.4050, L100.0100, L300.3900 ####[facility] [address] [place], [address] Monocytes/100 WBC (Bld) 7.0 % Normal 0-10 [facility] Comment on above: Performed By: #### L 503.6005, L501.6710, L101.9900, L300.4310, L500.4050, L100.0100, L300.3900 ####[facility] [address] [place], [address] Neutrophils/100 WBC (Bld) 81.4 % High 47-70 [facility] Comment on above: Performed By: #### L 503.6005, L501.6710, L101.9900, L300.4310, L500.4050, L100.0100, L300.3900 ####[facility] [address] [place], [address] Nucleated RBC (Bld) [#/Vol] 0 10*3/uL Normal 0-5 [facility] Comment on above: Performed By: #### L 503.6005, L501.6710, L101.9900, L300.4310, L500.4050, L100.0100, L300.3900 ####[facility] [address] [place], [address] Platelet mean volume (Bld) [Entitic vol] 10.1 fL Normal 6.2-12.0 [facility] Comment on above: Performed By: #### L 503.6005, L501.6710, L101.9900, L300.4310, L500.4050, L100.0100, L300.3900 ####[facility] [address] [place], [address] Platelets (Bld) [#/Vol] 304 10*3/uL Normal 150-450 [facility] Comment on above: Performed By: #### L 503.6005, L501.6710, L101.9900, L300.4310, L500.4050, L100.0100, L300.3900 ####[facility] [address] [place], [address] RBC (Bld) [#/Vol] 4.00 10*6/uL Low 4.2-5.4 [facility] Comment on above: Performed By: #### L 503.6005, L501.6710, L101.9900, L300.4310, L500.4050, L100.0100, L300.3900 ####[facility] [address] [place], [place], [id number] RDW SD 50.8 fl High 35.1-43.9 [facility] Comment on above: Performed By: #### L 503.6005, L501.6710, L101.9900, L300.4310, L500.4050, L100.0100, L300.3900 ####[facility] [address] [place], [address] WBC (Bld) [#/Vol] 10.0 10*3/uL Normal 4.4-11.0 [facility] Comment on above: Performed By: #### L 503.6005, L501.6710, L101.9900, L300.4310, L500.4050, L100.0100, L300.3900 ####[facility] [address] [place], [place], [id number] CRPon 12-02-2023 C-REACTIVE PROT 60.60 mg/L High 0.0-3.0 [facility] Comment on above: Result Comment: C-Re active Protein (CRP) provides useful information for thediagnosis, therapy and monitoring of inflammatory processesand associated diseases. For the evaluation of Relative Riskfor Cardiovascular Disease, a High Sensitivity CRP (HSCRP)should be ordered. Performed By: #### L 503.6005, L501.6710, L101.9900, L300.4310, L500.4050, L100.0100, L300.3900 ####[facility] [address] [place], [place], [id number] Comprehensive Metabolic Prof ilon 12-02-2023 Albumin [Mass/Vol] 2.3 g/dL Low 3.2-5.[address] [facility] Comment on above: Performed By: #### L 503.6005, L501.6710, L101.9900, L300.4310, L500.4050, L100.0100, L300.3900 ####[facility] [address] [place], [address] Albumin/Globulin [Mass ratio] 0.6 {ratio} Low 0.9-2.4 [facility] Comment on above: Performed By: #### L 503.6005, L501.6710, L101.9900, L300.4310, L500.4050, L100.0100, L300.3900 ####[facility] [address] [place], [address] ALK P 92 U/L Normal 45-117 [facility] Comment on above: Performed By: #### L 503.6005, L501.6710, L101.9900, L300.4310, L500.4050, L100.0100, L300.3900 ####[facility] [address] [place], [address] ALT [Catalytic activity/Vol] 22 U/L Normal 13-56 [facility] Comment on above: Performed By: #### L 503.6005, L501.6710, L101.9900, L300.4310, L500.4050, L100.0100, L300.3900 ####[facility] [address] [place], [address] AST [Catalytic activity/Vol] 12 U/L Low 15-37 [facility] Comment on above: Performed By: #### L 503.6005, L501.6710, L101.9900, L300.4310, L500.4050, L100.0100, L300.3900 ####[facility] [address] [place], [address] Bilirubin [Mass/Vol] 0.30 mg/dL Normal 0.20-1.00 [facility] Comment on above: Result Comment: For patients on eltrombopag therapy, use of Dimension [place] TBIL is not recommended. Performed By: #### L 503.6005, L501.6710, L101.9900, L300.4310, L500.4050, L100.0100, L300.3900 ####[facility] [address] [place], [address] BUN/CRE 18.5 RATIO Normal 10-20 [facility] Comment on above: Performed By: #### L 503.6005, L501.6710, L101.9900, L300.4310, L500.4050, L100.0100, L300.3900 ####[facility] [address] [place], [address] CA,Total 8.9 mg/dL Normal 8.5-10.1 [facility] Comment on above: Performed By: #### L 503.6005, L501.6710, L101.9900, L300.4310, L500.4050, L100.0100, L300.3900 ####[facility] [address] [place], [address] Chloride [Moles/Vol] 105 mmol/L Normal 98-107 [facility] Comment on above: Performed By: #### L 503.6005, L501.6710, L101.9900, L300.4310, L500.4050, L100.0100, L300.3900 ####[facility] [address] [place], [address] CO2 [Moles/Vol] 28.0 mmol/L Normal 21.0-32.0 [facility] Comment on above: Performed By: #### L 503.6005, L501.6710, L101.9900, L300.4310, L500.4050, L100.0100, L300.3900 ####[facility] [address] [place], [place], [address] Creatinine [Mass/Vol] 1.84 mg/dL High 0.55-1.02 [facility] Comment on above: Result Comment: The validity of the calculated GFR GFRAA in patients over70 years has not been determined. Clinical correlation isessential. Performed By: #### L 503.6005, L501.6710, L101.9900, L300.4310, L500.4050, L100.0100, L300.3900 ####[facility] [address] [place], [place], [phone] ECRCL 30.59 ml/min Normal [facility] Comment on above: Performed By: #### L 503.6005, L501.6710, L101.9900, L300.4310, L500.4050, L100.0100, L300.3900 ####[facility] [address] [place], [place], [address] EST GFR - AA 34 mL/min Low >60 [facility] Comment on above: Result Comment: Afri can Mal[place]ian GFR Calc Performed By: #### L 503.6005, L501.6710, L101.9900, L300.4310, L500.4050, L100.0100, L300.3900 ####[facility] [address] [place], [place], [id number] GAP 8 Normal 5-15 [facility] Comment on above: Performed By: #### L 503.6005, L501.6710, L101.9900, L300.4310, L500.4050, L100.0100, L300.3900 ####[facility] [address] [place], [place], [id number] GFR/1.73 sq M.predicted among non-blacks MDRD (S/P/Bld) [Vol rate/Area] 28 mL/min/{1.73_m2} Low >60 [facility] Comment on above: Result Comment: Non- GFR Calc Performed By: #### L 503.6005, L501.6710, L101.9900, L300.4310, L500.4050, L100.0100, L300.3900 ####[facility] [address] [place], [address] Globulin (S) [Mass/Vol] 3.8 g/dL Normal 2.2-4.2 [facility] Comment on above: Performed By: #### L 503.6005, L501.6710, L101.9900, L300.4310, L500.4050, L100.0100, L300.3900 ####[facility] [address] [place], [address] Glucose [Mass/Vol] 158 mg/dL High 74-[address] [facility] Comment on above: Result Comment: Fast ing Glucose result greater than or equal to 126 mg/dLsuggests DIABETES MELLITUS per A.D.A. criteria. Performed By: #### L 503.6005, L501.6710, L101.9900, L300.4310, L500.4050, L100.0100, L300.3900 ####[facility] [address] [place], [address] Potassium [Moles/Vol] 3.5 mmol/L Normal 3.5-5.1 [facility] Comment on above: Performed By: #### L 503.6005, L501.6710, L101.9900, L300.4310, L500.4050, L100.0100, L300.3900 ####[facility] [address] [place], [address] Sodium [Moles/Vol] 141 mmol/L Normal 136-[address] [facility] Comment on above: Performed By: #### L 503.6005, L501.6710, L101.9900, L300.4310, L500.4050, L100.0100, L300.3900 ####[facility] [address] [place], [place], [id number] T PROT 6.1 g/dL Low 6.4-8.2 [facility] Comment on above: Performed By: #### L 503.6005, L501.6710, L101.9900, L300.4310, L500.4050, L100.0100, L300.3900 ####[facility] [address] [place], [address] Urea nitrogen [Mass/Vol] 34 mg/dL High 7-18 [facility] Comment on above: Performed By: #### L 503.6005, L501.6710, L101.9900, L300.4310, L500.4050, L100.0100, L300.3900 ####[facility] [address] [place], [place], [id number] Emergency Department Summary on 12-02-2023 Emergency Department Summary Normal [facility] Erythrocyte Sed Rateon 12-01 SED RATE 24 mm/hr Normal 0-30 [facility] Comment on above: Performed By: #### L 503.6005, L501.6710, L101.9900, L300.4310, L500.4050, L100.0100, L300.3900 ####[facility] [address] [place], [place], [address] Foot min 3 Viewson 4 Foot min 3 Views Normal [facility] H AND P Exam - Hospitaliston 12-02-2023 H&P Exam - Hospitalist Normal [facility] Lactic Acidon 12-02-2023 Lactate [Moles/Vol] 1.3 mmol/L Normal 0.4-1.9 [facility] Comment on above: Order Comment: Y Performed By: #### L 503.6005, L501.6710, L101.9900, L300.4310, L500.4050, L100.0100, L300.3900 ####[facility] [address] [place], [place], [address] Lower Ext/No Jt/w/oon 2023 Lower Ext/No Jt/w/o Normal [facility] Partial Thromboplast Timeon 12-02-2023 aPTT Coag (Bld) [Time] 27.2 s Normal 24.1-36.2 [facility] Comment on above: Performed By: #### L 503.6005, L501.6710, L101.9900, L300.4310, L500.4050, L100.0100, L300.3900 ####[facility] [address] [place], [address] Prothrombin Time w/INRon INR Coag (PPP) [Relative time] 1.2 {INR} Normal [facility] Comment on above: Performed By: #### L 503.6005, L501.6710, L101.9900, L300.4310, L500.4050, L100.0100, L300.3900 ####[facility] [address] [place], [place], [phone] PT Coag (PPP) [Time] 14.8 s Normal 11.7-14.9 [facility] Comment on above: Performed By: #### L 503.6005, L501.6710, L101.9900, L300.4310, L500.4050, L100.0100, L300.3900 ####[facility] [address] [place], [place], [address] Urinalysis, Completeon 12-01 Mucus Ql (Urine sed) 1+ /hpf Normal [facility] Comment on above: Order Comment: COLLE CTOR TO SPECIFY Performed By: #### L 400.0001 ####[facility] [address] [place], [address] CAST,HYALINE 0-5 SEEN Normal 0-5 [facility] Comment on above: Order Comment: COLLE CTOR TO SPECIFY Performed By: #### L 400.0001 ####[facility] [address] [place], [address] BACTERIA 1+ /hpf Normal None Seen [facility] Comment on above: Order Comment: COLLE CTOR TO SPECIFY Performed By: #### L 400.0001 ####[facility] [address] [place], [address] EPI,SQUAMOUS 0-5 SEEN Normal 5-10 [facility] Comment on above: Order Comment: COLLE CTOR TO SPECIFY Performed By: #### L 400.0001 ####[facility] [address] [place], [address] WBC 0-5 SEEN Normal 0-5 [facility] Comment on above: Order Comment: COLLE CTOR TO SPECIFY Performed By: #### L 400.0001 ####[facility] [address] [place], [address] RBC 0 SEEN Normal 0-5 [facility] Comment on above: Order Comment: COLLE CTOR TO SPECIFY Performed By: #### L 400.0001 ####[facility] [address] [place], [address] Culture, Anaerobic Any [facility] chiki 11-30-2023 CUAN Copy of report sent to Infection Control Printer [id number] 11/29/23 0826 BAIRON. No anaerobic bacteria isolated. Normal [facility] Comment on above: Performed By: #### L 500.4050, L100.0100, L501.6710, M100.2000, L503.6005, L503.6620, M100.4001, M100.3000, L101.9900 ####[facility] [address] [place], [address] Wound Cultureon 11-29-2023 WC Normal [facility] Comment on above: Performed By: #### L 500.4050, L100.0100, L501.6710, M100.2000, L503.6005, L503.6620, M100.4001, M100.3000, L101.9900 ####[facility] [address] [place], [address] Basic Metabolic Profile (BMP )on 11-28-2023 BUN/CRE 19.6 RATIO Normal 10-20 [facility] Comment on above: Performed By: #### L 500.2500 ####[facility] [address] [place], [address] CA,Total 9.6 mg/dL Normal 8.5-10.1 [facility] Comment on above: Performed By: #### L 500.2500 ####[facility] [address] [place], [address] Chloride [Moles/Vol] 105 mmol/L Normal 98-107 [facility] Comment on above: Performed By: #### L 500.2500 ####[facility] [address] [place], [address] CO2 [Moles/Vol] 25.0 mmol/L Normal 21.0-32.0 [facility] Comment on above: Performed By: #### L 500.2500 ####[facility] [address] [place], [address] Creatinine [Mass/Vol] 1.99 mg/dL High 0.55-1.02 [facility] Comment on above: Result Comment: The validity of the calculated GFR GFRAA in patients over70 years has not been determined. Clinical correlation isessential. Performed By: #### L 500.2500 ####[facility] [address] [place], [address] EST GFR - AA 31 mL/min Low >60 [facility] Comment on above: Result Comment: Afri can [place] GFR Calc Performed By: #### L 500.2500 ####[facility] [address] [place], [address] GAP 8 Normal 5-15 [facility] Comment on above: Performed By: #### L 500.2500 ####[facility] [address] [place], [address] GFR/1.73 sq M.predicted among non-blacks MDRD (S/P/Bld) [Vol rate/Area] 25 mL/min/{1.73_m2} Low >60 [facility] Comment on above: Result Comment: Non- GFR Calc Performed By: #### L 500.2500 ####[facility] [address] [place], [address] Glucose [Mass/Vol] 163 mg/dL High 74-[address] [facility] Comment on above: Result Comment: Fast ing Glucose result greater than or equal to 126 mg/dLsuggests DIABETES MELLITUS per A.D.A. criteria. Performed By: #### L 500.2500 ####[facility] [address] [place], [address] Potassium [Moles/Vol] 4.0 mmol/L Normal 3.5-5.1 [facility] Comment on above: Performed By: #### L 500.2500 ####[facility] [address] [place], [address] Sodium [Moles/Vol] 138 mmol/L Normal 136-[address] [facility] Comment on above: Performed By: #### L 500.2500 ####[facility] [address] [place], [address] Urea nitrogen [Mass/Vol] 39 mg/dL High 7-18 [facility] Comment on above: Performed By: #### L 500.2500 ####[facility] [address] [place], [address] Gram Stainon 11-27-2023 GS Positive Normal [facility] Comment on above: Performed By: #### L 500.4050, L100.0100, L501.6710, M100.2000, L503.6005, L503.6620, M100.4001, M100.3000, L101.9900 ####[facility] [address] [place], [place], [id number] Venous Duplex US, Unilateral on 11-27-2023 Venous Duplex US, Unilateral Normal [facility] BNP,B-Type NATRIURETIC PEPTI [place] 11-26-2023 Natriuretic peptide B (Bld) [Mass/Vol] 528.5 pg/mL High 0-100 [facility] Comment on above: Performed By: #### L 500.4050, L100.0100, L501.6710, M100.2000, L503.6005, L503.6620, M100.4001, M100.3000, L101.9900 ####[facility] [address] [place], [place], [id number] CBC W/Diff, Automatedon 11-16 Absolute Lymph 0.81 X10 3/uL Low 0.83-4.51 [facility] Comment on above: Performed By: #### L 500.4050, L100.0100, L501.6710, M100.2000, L503.6005, L503.6620, M100.4001, M100.3000, L101.9900 ####[facility] [address] [place], [address] Absolute Neut 10.7 X10 3/uL High 2.0-7.7 [facility] Comment on above: Performed By: #### L 500.4050, L100.0100, L501.6710, M100.2000, L503.6005, L503.6620, M100.4001, M100.3000, L101.9900 ####[facility] [address] [place], [address] Basophils/100 WBC (Bld) 0.2 % Normal 0-1 [facility] Comment on above: Performed By: #### L 500.4050, L100.0100, L501.6710, M100.2000, L503.6005, L503.6620, M100.4001, M100.3000, L101.9900 ####[facility] [address] [place], [address] Eosinophils/100 WBC (Bld) 0.2 % Normal 0-5 [facility] Comment on above: Performed By: #### L 500.4050, L100.0100, L501.6710, M100.2000, L503.6005, L503.6620, M100.4001, M100.3000, L101.9900 ####[facility] [address] [place], [address] Erythrocyte distribution width (RBC) [Ratio] 15.6 % High 11.6-14.6 [facility] Comment on above: Performed By: #### L 500.4050, L100.0100, L501.6710, M100.2000, L503.6005, L503.6620, M100.4001, M100.3000, L101.9900 ####[facility] [address] [place], [address] Hematocrit (Bld) [Volume fraction] 36.3 % Low 37-47 [facility] Comment on above: Performed By: #### L 500.4050, L100.0100, L501.6710, M100.2000, L503.6005, L503.6620, M100.4001, M100.3000, L101.9900 ####[facility] [address] [place], [address] Hemoglobin (Bld) [Mass/Vol] 11.0 g/dL Low 12.0-15. 0 [facility] Comment on above: Performed By: #### L 500.4050, L100.0100, L501.6710, M100.2000, L503.6005, L503.6620, M100.4001, M100.3000, L101.9900 ####[facility] [address] [place], [address] IG% 0.600 Normal 0.0-0.9 [facility] Comment on above: Result Comment: IG% - Immature Granulocytes (promyelocytes, myelocytes andmetamyelocytes) > 1% indicates that a LEFT SHIFT is Present. Performed By: #### L 500.4050, L100.0100, L501.6710, M100.2000, L503.6005, L503.6620, M100.4001, M100.3000, L101.9900 ####[facility] [address] [place], [address] Lymphocytes/100 WBC (Bld) 6.5 % Low 19-41 [facility] Comment on above: Performed By: #### L 500.4050, L100.0100, L501.6710, M100.2000, L503.6005, L503.6620, M100.4001, M100.3000, L101.9900 ####[facility] [address] [place], [address] MCH (RBC) [Entitic mass] 27.3 pg Normal 27.0-32.0 [facility] Comment on above: Performed By: #### L 500.4050, L100.0100, L501.6710, M100.2000, L503.6005, L503.6620, M100.4001, M100.3000, L101.9900 ####[facility] [address] [place], [address] MCHC (RBC) [Mass/Vol] 30.3 g/dL Low 32-36 [facility] Comment on above: Performed By: #### L 500.4050, L100.0100, L501.6710, M100.2000, L503.6005, L503.6620, M100.4001, M100.3000, L101.9900 ####[facility] [address] [place], [address] MCV (RBC) [Entitic vol] 90.1 fL Normal 81-99 [facility] Comment on above: Performed By: #### L 500.4050, L100.0100, L501.6710, M100.2000, L503.6005, L503.6620, M100.4001, M100.3000, L101.9900 ####[facility] [address] [place], [address] Monocytes/100 WBC (Bld) 7.2 % Normal 0-10 [facility] Comment on above: Performed By: #### L 500.4050, L100.0100, L501.6710, M100.2000, L503.6005, L503.6620, M100.4001, M100.3000, L101.9900 ####[facility] [address] [facility] [place], [address] Neutrophils/100 WBC (Bld) 85.3 % High 47-70 [facility] Comment on above: Performed By: #### L 500.4050, L100.0100, L501.6710, M100.2000, L503.6005, L503.6620, M100.4001, M100.3000, L101.9900 ####[facility] [address] [place], [address] Nucleated RBC (Bld) [#/Vol] 0 10*3/uL Normal 0-5 [facility] Comment on above: Performed By: #### L 500.4050, L100.0100, L501.6710, M100.2000, L503.6005, L503.6620, M100.4001, M100.3000, L101.9900 ####[facility] [address] [place], [address] Platelet mean volume (Bld) [Entitic vol] 11.1 fL Normal 6.2-12.0 [facility] Comment on above: Performed By: #### L 500.4050, L100.0100, L501.6710, M100.2000, L503.6005, L503.6620, M100.4001, M100.3000, L101.9900 ####[facility] [address] [place], [address] Platelets (Bld) [#/Vol] 194 10*3/uL Normal 150-450 [facility] [facility] Comment on above: Performed By: #### L 500.4050, L100.0100, L501.6710, M100.2000, L503.6005, L503.6620, M100.4001, M100.3000, L101.9900 ####[facility] [address] [place], [address] RBC (Bld) [#/Vol] 4.03 10*6/uL Low 4.2-5.4 [facility] Comment on above: Performed By: #### L 500.4050, L100.0100, L501.6710, M100.2000, L503.6005, L503.6620, M100.4001, M100.3000, L101.9900 ####[facility] [address] [place], [address] RDW SD 51.4 fl High 35.1-43.9 [facility] Comment on above: Performed By: #### L 500.4050, L100.0100, L501.6710, M100.2000, L503.6005, L503.6620, M100.4001, M100.3000, L101.9900 ####[facility] [address] [place], [address] WBC (Bld) [#/Vol] 12.5 10*3/uL High 4.4-11.0 [facility] Comment on above: Performed By: #### L 500.4050, L100.0100, L501.6710, M100.2000, L503.6005, L503.6620, M100.4001, M100.3000, L101.9900 ####[facility] [address] [place], [address] CRPon 11-26-2023 C-REACTIVE PROT 186.00 mg/L High 0.0-3.0 [facility] Comment on above: Result Comment: C-Re active Protein (CRP) provides useful information for thediagnosis, therapy and monitoring of inflammatory processesand associated diseases. For the evaluation of Relative Riskfor Cardiovascular Disease, a High Sensitivity CRP (HSCRP)should be ordered. Performed By: #### L 500.4050, L100.0100, L501.6710, M100.2000, L503.6005, L503.6620, M100.4001, M100.3000, L101.9900 ####[facility] [address] [place], [address] Chest PA and Lateralon 11-25 Chest PA and Lateral Normal [facility] Comprehensive Metabolic Prof ilon 11-26-2023 Albumin [Mass/Vol] 2.4 g/dL Low 3.2-5.[address] [facility] Comment on above: Performed By: #### L 500.4050, L100.0100, L501.6710, M100.2000, L503.6005, L503.6620, M100.4001, M100.3000, L101.9900 ####[facility] [address] [place], [address] Albumin/Globulin [Mass ratio] 0.6 {ratio} Low 0.9-2.4 [facility] Comment on above: Performed By: #### L 500.4050, L100.0100, L501.6710, M100.2000, L503.6005, L503.6620, M100.4001, M100.3000, L101.9900 ####[facility] [address] [place], [address] ALK P 88 U/L Normal 45-117 [facility] Comment on above: Performed By: #### L 500.4050, L100.0100, L501.6710, M100.2000, L503.6005, L503.6620, M100.4001, M100.3000, L101.9900 ####[facility] [address] [place], [address] ALT [Catalytic activity/Vol] 28 U/L Normal 13-56 [facility] Comment on above: Performed By: #### L 500.4050, L100.0100, L501.6710, M100.2000, L503.6005, L503.6620, M100.4001, M100.3000, L101.9900 ####[facility] [address] [place], [address] AST [Catalytic activity/Vol] 10 U/L Low 15-37 [facility] Comment on above: Performed By: #### L 500.4050, L100.0100, L501.6710, M100.2000, L503.6005, L503.6620, M100.4001, M100.3000, L101.9900 ####[facility] [address] [place], [address] Bilirubin [Mass/Vol] 0.60 mg/dL Normal 0.20-1.00 [facility] Comment on above: Result Comment: For patients on eltrombopag therapy, use of Dimension [place] TBIL is not recommended. Performed By: #### L 500.4050, L100.0100, L501.6710, M100.2000, L503.6005, L503.6620, M100.4001, M100.3000, L101.9900 ####[facility] [address] [place], [address] BUN/CRE 19.2 RATIO Normal 10-20 [facility] Comment on above: Performed By: #### L 500.4050, L100.0100, L501.6710, M100.2000, L503.6005, L503.6620, M100.4001, M100.3000, L101.9900 ####[facility] [address] [place], [address] CA,Total 9.2 mg/dL Normal 8.5-10.1 [facility] Comment on above: Performed By: #### L 500.4050, L100.0100, L501.6710, M100.2000, L503.6005, L503.6620, M100.4001, M100.3000, L101.9900 ####[facility] [address] [place], [address] Chloride [Moles/Vol] 105 mmol/L Normal 98-107 [facility] Comment on above: Performed By: #### L 500.4050, L100.0100, L501.6710, M100.2000, L503.6005, L503.6620, M100.4001, M100.3000, L101.9900 ####[facility] [address] [place], [address] CO2 [Moles/Vol] 30.0 mmol/L Normal 21.0-32.0 [facility] Comment on above: Performed By: #### L 500.4050, L100.0100, L501.6710, M100.2000, L503.6005, L503.6620, M100.4001, M100.3000, L101.9900 ####[facility] [address] [place], [address] Creatinine [Mass/Vol] 1.72 mg/dL High 0.55-1.02 [facility] Comment on above: Result Comment: The validity of the calculated GFR GFRAA in patients over70 years has not been determined. Clinical correlation isessential. Performed By: #### L 500.4050, L100.0100, L501.6710, M100.2000, L503.6005, L503.6620, M100.4001, M100.3000, L101.9900 ####[facility] [address] [place], [place], [id number] EST GFR - AA 36 mL/min Low >60 [facility] Comment on above: Result Comment: Afri can Mal[place]ian GFR Calc Performed By: #### L 500.4050, L100.0100, L501.6710, M100.2000, L503.6005, L503.6620, M100.4001, M100.3000, L101.9900 ####[facility] [address] [place], [place], [id number] GAP 4 Low 5-15 [facility] Comment on above: Performed By: #### L 500.4050, L100.0100, L501.6710, M100.2000, L503.6005, L503.6620, M100.4001, M100.3000, L101.9900 ####[facility] [address] [place], [place], [id number] GFR/1.73 sq M.predicted among non-blacks MDRD (S/P/Bld) [Vol rate/Area] 30 mL/min/{1.73_m2} Low >60 [facility] Comment on above: Result Comment: Non- GFR Calc Performed By: #### L 500.4050, L100.0100, L501.6710, M100.2000, L503.6005, L503.6620, M100.4001, M100.3000, L101.9900 ####[facility] [address] [place], [address] Globulin (S) [Mass/Vol] 3.7 g/dL Normal 2.2-4.2 [facility] Comment on above: Performed By: #### L 500.4050, L100.0100, L501.6710, M100.2000, L503.6005, L503.6620, M100.4001, M100.3000, L101.9900 ####[facility] [address] [place], [address] Glucose [Mass/Vol] 173 mg/dL High 74-[address] [facility] Comment on above: Result Comment: Fast ing Glucose result greater than or equal to 126 mg/dLsuggests DIABETES MELLITUS per A.D.A. criteria. Performed By: #### L 500.4050, L100.0100, L501.6710, M100.2000, L503.6005, L503.6620, M100.4001, M100.3000, L101.9900 ####[facility] [address] [place], [address] Potassium [Moles/Vol] 4.6 mmol/L Normal 3.5-5.1 [facility] Comment on above: Performed By: #### L 500.4050, L100.0100, L501.6710, M100.2000, L503.6005, L503.6620, M100.4001, M100.3000, L101.9900 ####[facility] [address] [place], [address] Sodium [Moles/Vol] 139 mmol/L Normal 136-[address] [facility] Comment on above: Performed By: #### L 500.4050, L100.0100, L501.6710, M100.2000, L503.6005, L503.6620, M100.4001, M100.3000, L101.9900 ####[facility] [address] [place], [place], [address] T PROT 6.1 g/dL Low 6.4-8.2 [facility] Comment on above: Performed By: #### L 500.4050, L100.0100, L501.6710, M100.2000, L503.6005, L503.6620, M100.4001, M100.3000, L101.9900 ####[facility] [address] [place], [place], [id number] Urea nitrogen [Mass/Vol] 33 mg/dL High 7-18 [facility] Comment on above: Performed By: #### L 500.4050, L100.0100, L501.6710, M100.2000, L503.6005, L503.6620, M100.4001, M100.3000, L101.9900 ####[facility] [address] [place], [place], [id number] Erythrocyte Sed Rateon 11-25 SED RATE 17 mm/hr Normal 0-30 [facility] Comment on above: Performed By: #### L 500.4050, L100.0100, L501.6710, M100.2000, L503.6005, L503.6620, M100.4001, M100.3000, L101.9900 ####[facility] [address] [place], [place], [id number] Lactic Acidon 11-26-2023 Lactate [Moles/Vol] 2.0 mmol/L Normal 0.4-1.9 [facility] Comment on above: Order Comment: N Result Comment: Crit ical Result(s) Called at: 17:28:08 11/26/2023 by: Sirisha to Dr Douglas. Results read back by same. Performed By: #### L 500.4050, L100.0100, L501.6710, M100.2000, L503.6005, L503.6620, M100.4001, M100.3000, L101.9900 ####[facility] [address] [place], [address] CBC W/Diff, Automatedon 08-0 6-2023 Absolute Lymph 0.99 X10 3/uL Normal 0.83-4.51 [facility] Comment on above: Performed By: #### L 501.9985, M100.678, L506.1000, L501.9520, L100.0100, L500.4050 ####[facility] [address] [place], [address] Absolute Neut 9.3 X10 3/uL High 2.0-7.7 [facility] Comment on above: Performed By: #### L 501.9985, M100.678, L506.1000, L501.9520, L100.0100, L500.4050 ####[facility] [address] [place], [address] Basophils/100 WBC (Bld) 0.5 % Normal 0-1 [facility] Comment on above: Performed By: #### L 501.9985, M100.678, L506.1000, L501.9520, L100.0100, L500.4050 ####[facility] [address] [place], [address] Eosinophils/100 WBC (Bld) 1.3 % Normal 0-5 [facility] Comment on above: Performed By: #### L 501.9985, M100.678, L506.1000, L501.9520, L100.0100, L500.4050 ####[facility] [address] [place], [address] Erythrocyte distribution width (RBC) [Ratio] 14.8 % High 11.6-14.6 [facility] Comment on above: Performed By: #### L 501.9985, M100.678, L506.1000, L501.9520, L100.0100, L500.4050 ####[facility] [address] [place], [address] Hematocrit (Bld) [Volume fraction] 36.2 % Low 37-47 [facility] Comment on above: Performed By: #### L 501.9985, M100.678, L506.1000, L501.9520, L100.0100, L500.4050 ####[facility] [address] [place], [address] Hemoglobin (Bld) [Mass/Vol] 10.9 g/dL Low 12.0-15. 0 [facility] Comment on above: Performed By: #### L 501.9985, M100.678, L506.1000, L501.9520, L100.0100, L500.4050 ####[facility] [address] [place], [address] IG% 0.600 Normal 0.0-0.9 [facility] Comment on above: Result Comment: IG% - Immature Granulocytes (promyelocytes, myelocytes andmetamyelocytes) > 1% indicates that a LEFT SHIFT is Present. Performed By: #### L 501.9985, M100.678, L506.1000, L501.9520, L100.0100, L500.4050 ####[facility] [address] [place], [address] Lymphocytes/100 WBC (Bld) 8.8 % Low 19-41 [facility] Comment on above: Performed By: #### L 501.9985, M100.678, L506.1000, L501.9520, L100.0100, L500.4050 ####[facility] [address] [place], [address] MCH (RBC) [Entitic mass] 27.7 pg Normal 27.0-32.0 [facility] Comment on above: Performed By: #### L 501.9985, M100.678, L506.1000, L501.9520, L100.0100, L500.4050 ####[facility] [address] [place], [address] MCHC (RBC) [Mass/Vol] 30.1 g/dL Low 32-36 [facility] Comment on above: Performed By: #### L 501.9985, M100.678, L506.1000, L501.9520, L100.0100, L500.4050 ####[facility] [address] [place], [address] MCV (RBC) [Entitic vol] 91.9 fL Normal 81-99 [facility] Comment on above: Performed By: #### L 501.9985, M100.678, L506.1000, L501.9520, L100.0100, L500.4050 ####[facility] [address] [place], [address] Monocytes/100 WBC (Bld) 6.5 % Normal 0-10 [facility] Comment on above: Performed By: #### L 501.9985, M100.678, L506.1000, L501.9520, L100.0100, L500.4050 ####[facility] [address] [place], [address] Neutrophils/100 WBC (Bld) 82.3 % High 47-70 [facility] Comment on above: Performed By: #### L 501.9985, M100.678, L506.1000, L501.9520, L100.0100, L500.4050 ####[facility] [address] [place], [address] Nucleated RBC (Bld) [#/Vol] 0 10*3/uL Normal 0-5 [facility] Comment on above: Performed By: #### L 501.9985, M100.678, L506.1000, L501.9520, L100.0100, L500.4050 ####[facility] [address] [place], [address] Platelet mean volume (Bld) [Entitic vol] 10.9 fL Normal 6.2-12.0 [facility] Comment on above: Performed By: #### L 501.9985, M100.678, L506.1000, L501.9520, L100.0100, L500.4050 ####[facility] [address] [place], [address] Platelets (Bld) [#/Vol] 344 10*3/uL Normal 150-450 [facility] Comment on above: Performed By: #### L 501.9985, M100.678, L506.1000, L501.9520, L100.0100, L500.4050 ####[facility] [address] [place], [address] RBC (Bld) [#/Vol] 3.94 10*6/uL Low 4.2-5.4 [facility] Comment on above: Performed By: #### L 501.9985, M100.678, L506.1000, L501.9520, L100.0100, L500.4050 ####[facility] [address] [place], [address] RDW SD 49.9 fl High 35.1-43.9 [facility] Comment on above: Performed By: #### L 501.9985, M100.678, L506.1000, L501.9520, L100.0100, L500.4050 ####[facility] [address] [place], [address] WBC (Bld) [#/Vol] 11.3 10*3/uL High 4.4-11.0 [facility] Comment on above: Performed By: #### L 501.9985, M100.678, L506.1000, L501.9520, L100.0100, L500.4050 ####[facility] [address] [place], [address] Comprehensive Metabolic Prof ilon 10-22-2023 Albumin [Mass/Vol] 2.7 g/dL Low 3.2-5.[address] [facility] Comment on above: Performed By: #### L 501.9985, M100.678, L506.1000, L501.9520, L100.0100, L500.4050 ####[facility] [address] [place], [address] Albumin/Globulin [Mass ratio] 0.7 {ratio} Low 0.9-2.4 [facility] Comment on above: Performed By: #### L 501.9985, M100.678, L506.1000, L501.9520, L100.0100, L500.4050 ####[facility] [address] [place], [address] ALK P 94 U/L Normal 45-117 [facility] Comment on above: Performed By: #### L 501.9985, M100.678, L506.1000, L501.9520, L100.0100, L500.4050 ####[facility] [address] [place], [address] ALT [Catalytic activity/Vol] 11 U/L Low 13-56 [facility] Comment on above: Performed By: #### L 501.9985, M100.678, L506.1000, L501.9520, L100.0100, L500.4050 ####[facility] [address] [place], [address] AST [Catalytic activity/Vol] 7 U/L Low 15-37 [facility] Comment on above: Performed By: #### L 501.9985, M100.678, L506.1000, L501.9520, L100.0100, L500.4050 ####[facility] [address] [place], [address] Bilirubin [Mass/Vol] 0.30 mg/dL Normal 0.20-1.00 [facility] Comment on above: Result Comment: For patients on eltrombopag therapy, use of Dimension [place] TBIL is not recommended. Performed By: #### L 501.9985, M100.678, L506.1000, L501.9520, L100.0100, L500.4050 ####[facility] [address] [place], [address] BUN/CRE 17.5 RATIO Normal 10-20 [facility] Comment on above: Performed By: #### L 501.9985, M100.678, L506.1000, L501.9520, L100.0100, L500.4050 ####[facility] [address] [place], [address] CA,Total 8.6 mg/dL Normal 8.5-10.1 [facility] Comment on above: Performed By: #### L 501.9985, M100.678, L506.1000, L501.9520, L100.0100, L500.4050 ####[facility] [address] [place], [address] Chloride [Moles/Vol] 110 mmol/L High 98-107 [facility] Comment on above: Performed By: #### L 501.9985, M100.678, L506.1000, L501.9520, L100.0100, L500.4050 ####[facility] [address] [place], [address] CO2 [Moles/Vol] 29.0 mmol/L Normal 21.0-32.0 [facility] Comment on above: Performed By: #### L 501.9985, M100.678, L506.1000, L501.9520, L100.0100, L500.4050 ####[facility] [address] [place], [address] Creatinine [Mass/Vol] 1.43 mg/dL High 0.55-1.02 [facility] Comment on above: Result Comment: The validity of the calculated GFR GFRAA in patients over70 years has not been determined. Clinical correlation isessential. Performed By: #### L 501.9985, M100.678, L506.1000, L501.9520, L100.0100, L500.4050 ####[facility] [address] [place], [place], [address] EST GFR - AA 45 mL/min Low >60 [facility] Comment on above: Result Comment: Afri can [place]ian GFR Calc Performed By: #### L 501.9985, M100.678, L506.1000, L501.9520, L100.0100, L500.4050 ####[facility] [address] [place], [place], [address] GAP 5 Normal 5-15 [facility] Comment on above: Performed By: #### L 501.9985, M100.678, L506.1000, L501.9520, L100.0100, L500.4050 ####[facility] [address] [place], [place], [address] GFR/1.73 sq M.predicted among non-blacks MDRD (S/P/Bld) [Vol rate/Area] 37 mL/min/{1.73_m2} Low >60 [facility] Comment on above: Result Comment: Non- GFR Calc Performed By: #### L 501.9985, M100.678, L506.1000, L501.9520, L100.0100, L500.4050 ####[facility] [address] [place], [address] Globulin (S) [Mass/Vol] 3.9 g/dL Normal 2.2-4.2 [facility] Comment on above: Performed By: #### L 501.9985, M100.678, L506.1000, L501.9520, L100.0100, L500.4050 ####[facility] [address] [place], [address] Glucose [Mass/Vol] 114 mg/dL High 74-[address] [facility] Comment on above: Result Comment: Fast ing Glucose result from 100 to 125 mg/dLsuggests IMPAIRED HOMEOSTASIS per A.D.A. criteria. Performed By: #### L 501.9985, M100.678, L506.1000, L501.9520, L100.0100, L500.4050 ####[facility] [address] [place], [address] Potassium [Moles/Vol] 3.6 mmol/L Normal 3.5-5.1 [facility] Comment on above: Performed By: #### L 501.9985, M100.678, L506.1000, L501.9520, L100.0100, L500.4050 ####[facility] [address] [place], [address] Sodium [Moles/Vol] 144 mmol/L Normal 136-[address] [facility] Comment on above: Performed By: #### L 501.9985, M100.678, L506.1000, L501.9520, L100.0100, L500.4050 ####[facility] [address] [place], [address] T PROT 6.6 g/dL Normal 6.4-8.2 [facility] Comment on above: Performed By: #### L 501.9985, M100.678, L506.1000, L501.9520, L100.0100, L500.4050 ####[facility] [address] [place], [address] Urea nitrogen [Mass/Vol] 25 mg/dL High 7-18 [facility] Comment on above: Performed By: #### L 501.9985, M100.678, L506.1000, L501.9520, L100.0100, L500.4050 ####[facility] [address] [place], [address] Hemoglobin A1con 10-22-2023 HbA1c (Bld) [Mass fraction] 6.4 % High 3.8-5.6 [facility] Comment on above: Result Comment: Norm al < 5.7 % Prediabetic 5.7 - 6.4 % Diabetic >or= 6.5 % Please note range changes. Performed By: #### L 501.9985, M100.678, L506.1000, L501.9520, L100.0100, L500.4050 ####[facility] [address] [place], [address] M100.678on 10-22-2023 M100.678 SARS-CoV-2 (COVID 19 ) Negative INFLUENZA A Negative INFLUENZA B Negative RSV PCR Negative Normal [facility] Comment on above: Performed By: #### L 501.9985, M100.678, L506.1000, L501.9520, L100.0100, L500.4050 ####[facility] [address] [place], [address] Thyroid Stim Hormone (TSH)on 10-22-2023 TSH 1.70 uIU/mL Normal 0.358-3.74 [facility] Comment on above: Performed By: #### L 501.9985, M100.678, L506.1000, L501.9520, L100.0100, L500.4050 ####[facility] [address] [place], [address] Vitamin D,25 Hydroxyon 10-21 Vitamin D 25-OH 44.2 ng/mL Normal [facility] Comment on above: Result Comment: Bety min D 25(OH) Status Range Deficiency <20 ng/mL (50nmol/L) Insufficiency 20 - 30 ng/mL (50 - 75 nmol/L) Sufficiency 30 - 100 ng/mL (75 - 250 nmol/L) Toxicity >100 ng/mL (>250 nmol/L) Performed By: #### L 501.9985, M100.678, L506.1000, L501.9520, L100.0100, L500.4050 ####[facility] [address] [place], [address] BNP,B-Type NATRIURETIC PEPTI [place] 10-21-2023 Natriuretic peptide B (Bld) [Mass/Vol] 190.8 pg/mL High 0-100 [facility] Comment on above: Performed By: #### L 503.6620, L100.0100, L500.2500 ####[facility] [address] [place], [address] Basic Metabolic Profile (BMP )on 10-21-2023 BUN/CRE 19.3 RATIO Normal 10-20 [facility] Comment on above: Performed By: #### L 503.6620, L100.0100, L500.2500 ####[facility] [address] [place], [address] CA,Total 9.0 mg/dL Normal 8.5-10.1 [facility] Comment on above: Performed By: #### L 503.6620, L100.0100, L500.2500 ####[facility] [address] [place], [address] Chloride [Moles/Vol] 107 mmol/L Normal 98-107 [facility] Comment on above: Performed By: #### L 503.6620, L100.0100, L500.2500 ####[facility] [address] [place], [address] CO2 [Moles/Vol] 29.0 mmol/L Normal 21.0-32.0 [facility] Comment on above: Performed By: #### L 503.6620, L100.0100, L500.2500 ####[facility] [address] [place], [address] Creatinine [Mass/Vol] 1.35 mg/dL High 0.55-1.02 [facility] Comment on above: Result Comment: The validity of the calculated GFR GFRAA in patients over70 years has not been determined. Clinical correlation isessential. Performed By: #### L 503.6620, L100.0100, L500.2500 ####[facility] [address] [place], [address] EST GFR - AA 48 mL/min Low >60 [facility] Comment on above: Result Comment: Afri can [place] GFR Calc Performed By: #### L 503.6620, L100.0100, L500.2500 ####[facility] [address] [place], [address] GAP 6 Normal 5-15 [facility] Comment on above: Performed By: #### L 503.6620, L100.0100, L500.2500 ####[facility] [address] [place], [address] GFR/1.73 sq M.predicted among non-blacks MDRD (S/P/Bld) [Vol rate/Area] 40 mL/min/{1.73_m2} Low >60 [facility] Comment on above: Result Comment: Non- GFR Calc Performed By: #### L 503.6620, L100.0100, L500.2500 ####[facility] [address] [place], [address] Glucose [Mass/Vol] 94 mg/dL Normal 74-[address] [facility] Comment on above: Performed By: #### L 503.6620, L100.0100, L500.2500 ####[facility] [address] [place], [address] Potassium [Moles/Vol] 4.0 mmol/L Normal 3.5-5.1 [facility] Comment on above: Performed By: #### L 503.6620, L100.0100, L500.2500 ####[facility] [address] [place], [address] Sodium [Moles/Vol] 142 mmol/L Normal 136-[address] [facility] Comment on above: Performed By: #### L 503.6620, L100.0100, L500.2500 ####[facility] [address] [place], [address] Urea nitrogen [Mass/Vol] 26 mg/dL High 7-18 [facility] Comment on above: Performed By: #### L 503.6620, L100.0100, L500.2500 ####[facility] [address] [place], [address] CBC W/Diff, Automatedon 08-0 5-2024 Absolute Lymph 0.86 X10 3/uL Normal 0.83-4.51 [facility] Comment on above: Performed By: #### L 503.6620, L100.0100, L500.2500 ####[facility] [address] [place], [address] Absolute Neut 9.3 X10 3/uL High 2.0-7.7 [facility] Comment on above: Performed By: #### L 503.6620, L100.0100, L500.2500 ####[facility] [address] [place], [address] Basophils/100 WBC (Bld) 0.4 % Normal 0-1 [facility] Comment on above: Performed By: #### L 503.6620, L100.0100, L500.2500 ####[facility] [address] [place], [address] Eosinophils/100 WBC (Bld) 1.5 % Normal 0-5 [facility] Comment on above: Performed By: #### L 503.6620, L100.0100, L500.2500 ####[facility] [address] [place], [address] Erythrocyte distribution width (RBC) [Ratio] 14.9 % High 11.6-14.6 [facility] Comment on above: Performed By: #### L 503.6620, L100.0100, L500.2500 ####[facility] [address] [place], [address] Hematocrit (Bld) [Volume fraction] 34.1 % Low 37-47 [facility] Comment on above: Performed By: #### L 503.6620, L100.0100, L500.2500 ####[facility] [address] [place], [address] Hemoglobin (Bld) [Mass/Vol] 10.5 g/dL Low 12.0-15. 0 [facility] Comment on above: Performed By: #### L 503.6620, L100.0100, L500.2500 ####[facility] [address] [place], [address] IG% 0.400 Normal 0.0-0.9 [facility] Comment on above: Result Comment: IG% - Immature Granulocytes (promyelocytes, myelocytes andmetamyelocytes) > 1% indicates that a LEFT SHIFT is Present. Performed By: #### L 503.6620, L100.0100, L500.2500 ####[facility] [address] [place], [address] Lymphocytes/100 WBC (Bld) 7.7 % Low 19-41 [facility] Comment on above: Performed By: #### L 503.6620, L100.0100, L500.2500 ####[facility] [address] [place], [address] MCH (RBC) [Entitic mass] 28.0 pg Normal 27.0-32.0 [facility] Comment on above: Performed By: #### L 503.6620, L100.0100, L500.2500 ####[facility] [address] [place], [address] MCHC (RBC) [Mass/Vol] 30.8 g/dL Low 32-36 [facility] Comment on above: Performed By: #### L 503.6620, L100.0100, L500.2500 ####[facility] [address] [place], [address] MCV (RBC) [Entitic vol] 90.9 fL Normal 81-99 [facility] Comment on above: Performed By: #### L 503.6620, L100.0100, L500.2500 ####[facility] [address] [place], [address] Monocytes/100 WBC (Bld) 5.9 % Normal 0-10 [facility] Comment on above: Performed By: #### L 503.6620, L100.0100, L500.2500 ####[facility] [address] [place], [address] Neutrophils/100 WBC (Bld) 84.1 % High 47-70 [facility] Comment on above: Performed By: #### L 503.6620, L100.0100, L500.2500 ####[facility] [address] [place], [address] Nucleated RBC (Bld) [#/Vol] 0 10*3/uL Normal 0-5 [facility] Comment on above: Performed By: #### L 503.6620, L100.0100, L500.2500 ####[facility] [address] [place], [address] Platelet mean volume (Bld) [Entitic vol] 10.2 fL Normal 6.2-12.0 [facility] Comment on above: Performed By: #### L 503.6620, L100.0100, L500.2500 ####[facility] [address] [place], [address] Platelets (Bld) [#/Vol] 313 10*3/uL Normal 150-450 [facility] Comment on above: Performed By: #### L 503.6620, L100.0100, L500.2500 ####[facility] [address] [place], [address] RBC (Bld) [#/Vol] 3.75 10*6/uL Low 4.2-5.4 [facility] Comment on above: Performed By: #### L 503.6620, L100.0100, L500.2500 ####[facility] [address] [place], [address] RDW SD 50.1 fl High 35.1-43.9 [facility] Comment on above: Performed By: #### L 503.6620, L100.0100, L500.2500 ####[facility] [address] [place], [address] WBC (Bld) [#/Vol] 11.1 10*3/uL High 4.4-11.0 [facility] Comment on above: Performed By: #### L 503.6620, L100.0100, L500.2500 ####[facility] [address] [place], [address] Cardiology Visit Reporton Cardiology Visit Report Normal [facility] Chest PA and Lateralon 10-13 Chest PA and Lateral Normal [facility] M100.678on 10-14-2023 M100.678 SARS-CoV-2 (COVID 19 ) Negative INFLUENZA A Negative INFLUENZA B Negative RSV PCR Negative Normal [facility] Comment on above: Performed By: #### M 100.673 ####[facility] [address] [place], [address] .GFRon 07-19-2023 GFR 37 ml/min/1.73sqm Normal [facility] ([place]) Comment on above: Result Comment: GFR Population mean for , Non- Americans Ages 20-29 = 116 mL/min/1.73 sq.m. Ages 30-39 = 107 mL/min/1.73 sq.m. Ages 40-49 = 99 mL/min/1.73 sq.m. Ages 50-59 = 93 mL/min/1.73 sq.m. Ages 60-69 = 85 mL/min/1.73 sq.m. Ages 70+ = 75 mL/min/1.73 sq.m. Chronic Kidney Disease: Less than 60 mL/min/1.73 square meters End Stage Renal Disease: Less than 15 mL/min/1.73 square meters Performed By: #### A DIFF, CBC, ANEU, BMP, GFR #### [place] [address] GFR Non- 30 ml/min/1.73sqm Normal [facility] ([place]) Comment on above: Result Comment: GFR Population mean for , Non- Americans Ages 20-29 = 116 mL/min/1.73 sq.m. Ages 30-39 = 107 mL/min/1.73 sq.m. Ages 40-49 = 99 mL/min/1.73 sq.m. Ages 50-59 = 93 mL/min/1.73 sq.m. Ages 60-69 = 85 mL/min/1.73 sq.m. Ages 70+ = 75 mL/min/1.73 sq.m. Chronic Kidney Disease: Less than 60 mL/min/1.73 square meters End Stage Renal Disease: Less than 15 mL/min/1.73 square meters Performed By: #### A DIFF, CBC, ANEU, BMP, GFR #### [address] [address] BMPon 07-19-2023 BUN/Creatinine Ratio 38.3 ratio High 10.0-22.0 [facility] ([place]) Comment on above: Performed By: #### A DIFF, CBC, ANEU, BMP, GFR #### [address] [address] Calcium [Mass/Vol] 9.8 mg/dL Normal 8.7-10.4 [facility] ([place]) Comment on above: Performed By: #### A DIFF, CBC, ANEU, BMP, GFR #### [address] [address] Chloride [Moles/Vol] 96 mmol/L Low 98-110 [facility] ([place]) Comment on above: Performed By: #### A DIFF, CBC, ANEU, BMP, GFR #### [address] [address] CO2 [Moles/Vol] 35 mmol/L High 22-32 [facility] ([place]) Comment on above: Performed By: #### A DIFF, CBC, ANEU, BMP, GFR #### [address] [address] Creatinine [Mass/Vol] 1.62 mg/dL High 0.50-1.20 [facility] ([place]) Comment on above: Performed By: #### A DIFF, CBC, ANEU, BMP, GFR #### [address] [address] Electrolyte Balance 5.0 mEq/L Normal 4.0-15.0 [facility] ([place]) Comment on above: Performed By: #### A DIFF, CBC, ANEU, BMP, GFR #### [address] [address] Glucose [Mass/Vol] 149 mg/dL High 82-115 [facility] ([place]) Comment on above: Performed By: #### A DIFF, CBC, ANEU, BMP, GFR #### [address] [address] Potassium [Moles/Vol] 3.6 mmol/L Normal 3.5-5.0 [facility] ([place]) Comment on above: Performed By: #### A DIFF, CBC, ANEU, BMP, GFR #### [address] [address] Sodium [Moles/Vol] 136 mmol/L Normal 136-145 [facility] ([place]) Comment on above: Performed By: #### A DIFF, CBC, ANEU, BMP, GFR #### [address] [address] Urea nitrogen [Mass/Vol] 62.0 mg/dL High 8.0-22.0 [facility] ([place]) Comment on above: Performed By: #### A DIFF, CBC, ANEU, BMP, GFR #### [address] [address] LABORATORYOrdered By: Hermelindo Hennessy on 07-19-2023 Blood Glucose Testing Reason Routine (07/19/23 11:18 AM) [facility] Work Phone: Glucose [Mass/Vol] 166 mg/dL High 82 - 115 mg/dL [facility] Work Phone: LABORATORYOrdered By: Katrin Rivera on 07-19-2023 Blood Glucose Testing Reason Routine (07/19/23 9:23 AM) [facility] Work Phone: Glucose [Mass/Vol] 162 mg/dL High 82 - 115 mg/dL [facility] Work Phone: Blood Glucose Testing Reason Routine (07/19/23 7:28 AM) [facility] Work Phone: Glucose [Mass/Vol] 162 mg/dL High 82 - 115 mg/dL [facility] Work Phone: LABORATORYOrdered By: [employer] on 07-19-2023 Calcium [Mass/Vol] 9.8 mg/dL Normal 8.7 - 10. 4 mg/dL AH ADM SS Chloride [Moles/Vol] 96 mmol/L Low 98 - 11 0 mEq/L AH ADM SS CO2 [Moles/Vol] 35 mmol/L High 22 - 32 mEq/L AH ADM SS Creatinine [Mass/Vol] 1.62 mg/dL High 0.50 - 1.20 mg/dL ADM SS Electrolyte Balance 5.0 mEq/L Normal 4.0 - 15 .0 mEq/L ADM SS GFR/1.73 sq M.predicted among blacks MDRD (S/P/Bld) [Vol rate/Area] 37 ml/min/1.73sqm Invalid Interpretation Code ADM SS Comment on above: Interpretive Data: GFR Population mean for , Non- Americans Ages 20-29 = 116 mL/min/1.73 sq.m. Ages 30-39 = 107 mL/min/1.73 sq.m. Ages 40-49 = 99 mL/min/1.73 sq.m. Ages 50-59 = 93 mL/min/1.73 sq.m. Ages 60-69 = 85 mL/min/1.73 sq.m. Ages 70+ = 75 mL/min/1.73 sq.m. Chronic Kidney Disease: Less than 60 mL/min/1.73 square meters End Stage Renal Disease: Less than 15 mL/min/1.73 square meters GFR/1.73 sq M.predicted among non-blacks MDRD (S/P/Bld) [Vol rate/Area] 30 ml/min/1.73sqm Invalid Interpretation Code ADM Comment on above: Interpretive Data: GFR Population mean for , Non- Americans Ages 20-29 = 116 mL/min/1.73 sq.m. Ages 30-39 = 107 mL/min/1.73 sq.m. Ages 40-49 = 99 mL/min/1.73 sq.m. Ages 50-59 = 93 mL/min/1.73 sq.m. Ages 60-69 = 85 mL/min/1.73 sq.m. Ages 70+ = 75 mL/min/1.73 sq.m. Chronic Kidney Disease: Less than 60 mL/min/1.73 square meters End Stage Renal Disease: Less than 15 mL/min/1.73 square meters Glucose [Mass/Vol] 149 mg/dL High 82 - 115 mg/dL ADM SS Potassium [Moles/Vol] 3.6 mmol/L Normal 3.5 - 5.0 mEq/L ADM SS Sodium [Moles/Vol] 136 mmol/L Normal 136 - 145 mEq/L AH ADM SS Urea nitrogen [Mass/Vol] 62.0 mg/dL High 8.0 - 22.0 mg/dL AH ADM SS Urea nitrogen/Creatinine [Mass ratio] 38.3 ratio High 10.0 - 22.0 ratio AH ADM SS XR CHEST 1 VIEWon 07-19-2023 XR CHEST 1 VIEW ORIGINAL EXAMINATION: ONE XRAY VIEW OF THE CHEST07/19/2023 6:20 am COMPARISON: 07/18/2023 HISTORY: ORDERING SYSTEM PROVIDED HISTORY: Reason for Exam: pleural effusion FINDINGS: The cardiomediastinal silhouette is stable. Interval improved aeration. Interval improvement in right pleural effusion now small with adjacent airspace disease. No significant interval change in small to moderate left pleural effusion with adjacent airspace disease. No visible pneumothorax. Surgical clips noted within the right axilla. No acute osseous abnormality. IMPRESSION: Interval improved aeration. Interval improved right pleural effusion now small with adjacent airspace disease. Unchanged small to moderate left pleural effusion with adjacent airspace disease. I have personally reviewed the images of this examination, and agree with the resident's findings and interpretation. Interpreted by: Asif Perry MD Preliminary Report By: Carmela More Electronically signed By Asif Perry MD Dictated Date: 07/19/2023 6:51:29 AM Prelim Date: 07/19/2023 6:54:41 AM Sign Date: 07/19/2023 7:22:04 AM Ordering Provider: DARRIN CAVANAUGH [facility] ([place]) .GFRon 07-18-2023 GFR 39 ml/min/1.73sqm [facility] ([place]) Comment on above: Result Comment: GFR Population mean for , Non- Americans Ages 20-29 = 116 mL/min/1.73 sq.m. Ages 30-39 = 107 mL/min/1.73 sq.m. Ages 40-49 = 99 mL/min/1.73 sq.m. Ages 50-59 = 93 mL/min/1.73 sq.m. Ages 60-69 = 85 mL/min/1.73 sq.m. Ages 70+ = 75 mL/min/1.73 sq.m. Chronic Kidney Disease: Less than 60 mL/min/1.73 square meters End Stage Renal Disease: Less than 15 mL/min/1.73 square meters Performed By: #### A DIFF, CBC, ANEU, BMP, GFR #### [address] [address] GFR Non- 32 ml/min/1.73sqm Normal [facility] ([place]) Comment on above: Result Comment: GFR Population mean for , Non- Americans Ages 20-29 = 116 mL/min/1.73 sq.m. Ages 30-39 = 107 mL/min/1.73 sq.m. Ages 40-49 = 99 mL/min/1.73 sq.m. Ages 50-59 = 93 mL/min/1.73 sq.m. Ages 60-69 = 85 mL/min/1.73 sq.m. Ages 70+ = 75 mL/min/1.73 sq.m. Chronic Kidney Disease: Less than 60 mL/min/1.73 square meters End Stage Renal Disease: Less than 15 mL/min/1.73 square meters Performed By: #### A DIFF, CBC, ANEU, BMP, GFR #### [address] [address] BMPon 07-18-2023 BUN/Creatinine Ratio 38.1 ratio High 10.0-22.0 [facility] ([place]) Comment on above: Performed By: #### A DIFF, CBC, ANEU, BMP, GFR #### [address] [address] Calcium [Mass/Vol] 9.4 mg/dL Normal 8.7-10.4 [facility] ([place]) Comment on above: Performed By: #### A DIFF, CBC, ANEU, BMP, GFR #### [address] [address] Chloride [Moles/Vol] 99 mmol/L Normal 98-110 [facility] ([place]) Comment on above: Performed By: #### A DIFF, CBC, ANEU, BMP, GFR #### [address] [address] CO2 [Moles/Vol] 31 mmol/L Normal 22-32 [facility] ([place]) Comment on above: Performed By: #### A DIFF, CBC, ANEU, BMP, GFR #### [address] [address] Creatinine [Mass/Vol] 1.55 mg/dL High 0.50-1.20 [facility] ([place]) Comment on above: Performed By: #### A DIFF, CBC, ANEU, BMP, GFR #### [address] [address] Electrolyte Balance 8.0 mEq/L Normal 4.0-15.0 [facility] ([place]) Comment on above: Performed By: #### A DIFF, CBC, ANEU, BMP, GFR #### [address] [address] Glucose [Mass/Vol] 141 mg/dL High 82-115 [facility] ([place]) Comment on above: Performed By: #### A DIFF, CBC, ANEU, BMP, GFR #### [place] [address] Potassium [Moles/Vol] 3.2 mmol/L Low 3.5-5.0 [facility] ([place]) Comment on above: Performed By: #### A DIFF, CBC, ANEU, BMP, GFR #### [place] [address] Sodium [Moles/Vol] 138 mmol/L Normal 136-145 [facility] ([place]) Comment on above: Performed By: #### A DIFF, CBC, ANEU, BMP, GFR #### [address] [address] Urea nitrogen [Mass/Vol] 59.0 mg/dL High 8.0-22.0 [facility] ([place]) Comment on above: Performed By: #### A DIFF, CBC, ANEU, BMP, GFR #### [address] [address] LABORATORYOrdered By: SYSTEM SYSTEM on 07-18-2023 Calcium [Mass/Vol] 9.4 mg/dL Normal 8.7 - 10. 4 mg/dL AH ADM SS Chloride [Moles/Vol] 99 mmol/L Normal 98 - 11 0 mEq/L AH ADM SS CO2 [Moles/Vol] 31 mmol/L Normal 22 - 32 mEq/L ADM SS Creatinine [Mass/Vol] 1.55 mg/dL High 0.50 - 1.20 mg/dL ADM SS Electrolyte Balance 8.0 mEq/L Normal 4.0 - 15 .0 mEq/L ADM SS GFR/1.73 sq M.predicted among blacks MDRD (S/P/Bld) [Vol rate/Area] 39 ml/min/1.73sqm Invalid Interpretation Code ADM SS Comment on above: Interpretive Data: GFR Population mean for , Non- Americans Ages 20-29 = 116 mL/min/1.73 sq.m. Ages 30-39 = 107 mL/min/1.73 sq.m. Ages 40-49 = 99 mL/min/1.73 sq.m. Ages 50-59 = 93 mL/min/1.73 sq.m. Ages 60-69 = 85 mL/min/1.73 sq.m. Ages 70+ = 75 mL/min/1.73 sq.m. Chronic Kidney Disease: Less than 60 mL/min/1.73 square meters End Stage Renal Disease: Less than 15 mL/min/1.73 square meters GFR/1.73 sq M.predicted among non-blacks MDRD (S/P/Bld) [Vol rate/Area] 32 ml/min/1.73sqm Invalid Interpretation Code ADM Comment on above: Interpretive Data: GFR Population mean for , Non- Americans Ages 20-29 = 116 mL/min/1.73 sq.m. Ages 30-39 = 107 mL/min/1.73 sq.m. Ages 40-49 = 99 mL/min/1.73 sq.m. Ages 50-59 = 93 mL/min/1.73 sq.m. Ages 60-69 = 85 mL/min/1.73 sq.m. Ages 70+ = 75 mL/min/1.73 sq.m. Chronic Kidney Disease: Less than 60 mL/min/1.73 square meters End Stage Renal Disease: Less than 15 mL/min/1.73 square meters Glucose [Mass/Vol] 141 mg/dL High 82 - 115 mg/dL ADM SS Potassium [Moles/Vol] 3.2 mmol/L Low 3.5 - 5.0 mEq/L AH ADM SS Sodium [Moles/Vol] 138 mmol/L Normal 136 - 145 mEq/L AH ADM SS Urea nitrogen [Mass/Vol] 59.0 mg/dL High 8.0 - 22.0 mg/dL AH ADM SS Urea nitrogen/Creatinine [Mass ratio] 38.1 ratio High 10.0 - 22.0 ratio AH ADM SS XR CHEST 1 VIEWon 07-18-2023 XR CHEST 1 VIEW ORIGINAL EXAMINATION: ONE XRAY VIEW OF THE CHEST07/18/2023 5:51 am COMPARISON: 07/16/2023 HISTORY: ORDERING SYSTEM PROVIDED HISTORY: Reason for Exam: Abnormal lung sounds FINDINGS: Stable cardiomegaly. Atherosclerotic calcification of the aorta. Small to moderate, left greater than right, pleural effusions with adjacent bibasilar airspace disease. Prominent interstitial markings bilaterally. No visible pneumothorax. A portion of the right costophrenic angle is excluded from the field of view. No acute osseous abnormality. IMPRESSION: No significant interval change in small to moderate bilateral pleural effusions with adjacent airspace disease. Prominent interstitial markings bilaterally may reflect congestion/edema with developing infectious or inflammatory process not excluded. I have personally reviewed the images of this examination, and agree with the resident's findings and interpretation. Interpreted by: Asif Perry MD Preliminary Report By: Carmela More Electronically signed By Asif Perry MD Dictated Date: 07/18/2023 5:58:43 AM Prelim Date: 07/18/2023 6:01:32 AM Sign Date: 07/18/2023 6:40:13 AM Ordering Provider: VANDA DO [facility] ([place]) .GFRon 07-17-2023 GFR 36 ml/min/1.73sqm Normal [facility] ([place]) Comment on above: Result Comment: GFR Population mean for , Non- Americans Ages 20-29 = 116 mL/min/1.73 sq.m. Ages 30-39 = 107 mL/min/1.73 sq.m. Ages 40-49 = 99 mL/min/1.73 sq.m. Ages 50-59 = 93 mL/min/1.73 sq.m. Ages 60-69 = 85 mL/min/1.73 sq.m. Ages 70+ = 75 mL/min/1.73 sq.m. Chronic Kidney Disease: Less than 60 mL/min/1.73 square meters End Stage Renal Disease: Less than 15 mL/min/1.73 square meters Performed By: #### K #### [address] [address] GFR Non- 30 ml/min/1.73sqm Normal [facility] ([place]) Comment on above: Result Comment: GFR Population mean for , Non- Americans Ages 20-29 = 116 mL/min/1.73 sq.m. Ages 30-39 = 107 mL/min/1.73 sq.m. Ages 40-49 = 99 mL/min/1.73 sq.m. Ages 50-59 = 93 mL/min/1.73 sq.m. Ages 60-69 = 85 mL/min/1.73 sq.m. Ages 70+ = 75 mL/min/1.73 sq.m. Chronic Kidney Disease: Less than 60 mL/min/1.73 square meters End Stage Renal Disease: Less than 15 mL/min/1.73 square meters Performed By: #### K #### [address] [address] [facility] BUN/Creatinine Ratio 34.4 ratio High 10.0-22.0 [facility] ([place]) Comment on above: Performed By: #### K #### [address] [address] Calcium [Mass/Vol] 9.2 mg/dL Normal 8.7-10.4 [facility] ([place]) Comment on above: Performed By: #### K #### [address] [address] Chloride [Moles/Vol] 101 mmol/L Normal 98-110 [facility] ([place]) Comment on above: Performed By: #### K #### [address] [address] CO2 [Moles/Vol] 31 mmol/L Normal 22-32 [facility] ([place]) Comment on above: Performed By: #### K #### [address] [address] Creatinine [Mass/Vol] 1.63 mg/dL High 0.50-1.20 [facility] ([place]) Comment on above: Performed By: #### K #### [address] [address] Electrolyte Balance 7.0 mEq/L Normal 4.0-15.0 [facility] ([place]) Comment on above: Performed By: #### K #### [address] [address] Glucose [Mass/Vol] 131 mg/dL High 82-115 [facility] ([place]) Comment on above: Performed By: #### K #### [address] [address] Potassium [Moles/Vol] 3.8 mmol/L Normal 3.5-5.0 [facility] ([place]) Comment on above: Performed By: #### K #### [address] [address] Sodium [Moles/Vol] 139 mmol/L Normal 136-145 [facility] ([place]) Comment on above: Performed By: #### K #### [address] [address] Urea nitrogen [Mass/Vol] 56.0 mg/dL High 8.0-22.0 [facility] ([place]) Comment on above: Performed By: #### K #### [address] [address] LABORATORYOrdered By: Alia Gaxiola on 07-17-2023 Blood Glucose Interventions Administered agent to decrease blood sugar (07/17/23 4:11 PM) [facility] Work Phone: Blood Glucose Interventions Administered agent to decrease blood sugar (07/17/23 11:25 AM) [facility] Work Phone: Blood Glucose Interventions Administered agent to decrease blood sugar (07/17/23 8:36 AM) [facility] Work Phone: LABORATORYOrdered By: SYSTEM SYSTEM on 07-17-2023 Calcium [Mass/Vol] 9.2 mg/dL Normal 8.7 - 10. 4 mg/dL ADM SS Chloride [Moles/Vol] 101 mmol/L Normal 98 - 11 0 mEq/L ADM SS CO2 [Moles/Vol] 31 mmol/L Normal 22 - 32 mEq/L ADM SS Creatinine [Mass/Vol] 1.63 mg/dL High 0.50 - 1.20 mg/dL ADM SS Electrolyte Balance 7.0 mEq/L Normal 4.0 - 15 .0 mEq/L ADM SS GFR/1.73 sq M.predicted among blacks MDRD (S/P/Bld) [Vol rate/Area] 36 ml/min/1.73sqm Invalid Interpretation Code [facility] Comment on above: Interpretive Data: GFR Population mean for , Non- Americans Ages 20-29 = 116 mL/min/1.73 sq.m. Ages 30-39 = 107 mL/min/1.73 sq.m. Ages 40-49 = 99 mL/min/1.73 sq.m. Ages 50-59 = 93 mL/min/1.73 sq.m. Ages 60-69 = 85 mL/min/1.73 sq.m. Ages 70+ = 75 mL/min/1.73 sq.m. Chronic Kidney Disease: Less than 60 mL/min/1.73 square meters End Stage Renal Disease: Less than 15 mL/min/1.73 square meters GFR/1.73 sq M.predicted among non-blacks MDRD (S/P/Bld) [Vol rate/Area] 30 ml/min/1.73sqm Invalid Interpretation Code [facility] Comment on above: Interpretive Data: GFR Population mean for , Non- Americans Ages 20-29 = 116 mL/min/1.73 sq.m. Ages 30-39 = 107 mL/min/1.73 sq.m. Ages 40-49 = 99 mL/min/1.73 sq.m. Ages 50-59 = 93 mL/min/1.73 sq.m. Ages 60-69 = 85 mL/min/1.73 sq.m. Ages 70+ = 75 mL/min/1.73 sq.m. Chronic Kidney Disease: Less than 60 mL/min/1.73 square meters End Stage Renal Disease: Less than 15 mL/min/1.73 square meters Glucose [Mass/Vol] 131 mg/dL High 82 - 115 mg/dL AH ADM SS Potassium [Moles/Vol] 3.8 mmol/L Normal 3.5 - 5.0 mEq/L AH ADM SS Sodium [Moles/Vol] 139 mmol/L Normal 136 - 145 mEq/L AH ADM SS Urea nitrogen [Mass/Vol] 56.0 mg/dL High 8.0 - 22.0 mg/dL AH ADM SS Urea nitrogen/Creatinine [Mass ratio] 34.4 ratio High 10.0 - 22.0 ratio AH ADM SS .GFRon 07-16-2023 GFR 34 ml/min/1.73sqm Normal [facility] ([place]) Comment on above: Result Comment: GFR Population mean for , Non- Americans Ages 20-29 = 116 mL/min/1.73 sq.m. Ages 30-39 = 107 mL/min/1.73 sq.m. Ages 40-49 = 99 mL/min/1.73 sq.m. Ages 50-59 = 93 mL/min/1.73 sq.m. Ages 60-69 = 85 mL/min/1.73 sq.m. Ages 70+ = 75 mL/min/1.73 sq.m. Chronic Kidney Disease: Less than 60 mL/min/1.73 square meters End Stage Renal Disease: Less than 15 mL/min/1.73 square meters Performed By: #### G UCHE, #### [place] [address] GFR Non- 28 ml/min/1.73sqm Normal [facility] ([place]) Comment on above: Result Comment: GFR Population mean for , Non- Americans Ages 20-29 = 116 mL/min/1.73 sq.m. Ages 30-39 = 107 mL/min/1.73 sq.m. Ages 40-49 = 99 mL/min/1.73 sq.m. Ages 50-59 = 93 mL/min/1.73 sq.m. Ages 60-69 = 85 mL/min/1.73 sq.m. Ages 70+ = 75 mL/min/1.73 sq.m. Chronic Kidney Disease: Less than 60 mL/min/1.73 square meters End Stage Renal Disease: Less than 15 mL/min/1.73 square meters Performed By: #### Artemio IVEY, #### [address] [address] BMPon 07-16-2023 BUN/Creatinine Ratio 28.3 ratio High 10.0-22.0 [facility] ([place]) Comment on above: Performed By: #### Artemio IVEY, #### [address] [address] Calcium [Mass/Vol] 9.0 mg/dL Normal 8.7-10.4 [facility] ([place]) Comment on above: Performed By: #### Artemio IVEY, #### [address] [address] Chloride [Moles/Vol] 102 mmol/L Normal 98-110 [facility] ([place]) Comment on above: Performed By: #### Artemio IVEY, #### [address] [address] CO2 [Moles/Vol] 28 mmol/L Normal 22-32 [facility] ([place]) Comment on above: Performed By: #### Artemio IVEY, #### [address] [address] Creatinine [Mass/Vol] 1.73 mg/dL High 0.50-1.20 [facility] ([place]) Comment on above: Performed By: #### Artemio IVEY, #### [address] [address] Electrolyte Balance 7.0 mEq/L Normal 4.0-15.0 [facility] ([place]) Comment on above: Performed By: #### Artemio IVEY, HH #### [address] [address] Glucose [Mass/Vol] 159 mg/dL High 82-115 [facility] ([place]) Comment on above: Performed By: #### Artemio IVEY, HH #### [address] [address] Potassium [Moles/Vol] 3.7 mmol/L Normal 3.5-5.0 [facility] ([place]) Comment on above: Performed By: #### G UCHE, #### [address] [address] Sodium [Moles/Vol] 137 mmol/L Normal 136-145 [facility] ([place]) Comment on above: Performed By: #### G UCHE, #### [address] [address] Urea nitrogen [Mass/Vol] 49.0 mg/dL High 8.0-22.0 [facility] ([place]) Comment on above: Performed By: #### G UCHE #### [address] [address] XR CHEST 1 VIEWon 07-16-2023 XR CHEST 1 VIEW ORIGINAL EXAMINATION: ONE XRAY VIEW OF THE CHEST07/16/2023 8:13 am COMPARISON: 07/16/2023 HISTORY: ORDERING SYSTEM PROVIDED HISTORY: Reason for Exam: d/c chest tubes FINDINGS: Enlarged cardiac silhouette noted. Vascular structures appear within normal limits. Bibasilar consolidations noted. Moderate pleural effusions. No pneumothorax identified. No aggressive osseous lesions identified. IMPRESSION: Persistent bilateral pleural effusions and bibasilar consolidations. Follow to resolution Interpreted by: Basim Holland MD Preliminary Report By: Basim Holland MD Electronically signed By Basim Holland MD Dictated Date: 07/16/2023 8:31:52 AM Prelim Date: 07/16/2023 8:32:48 AM Sign Date: 07/16/2023 8:32:48 AM Ordering Provider: LIAT GARDINER [facility] ([place]) XR CHEST 1 VIEW ORIGINAL EXAMINATION: ONE XRAY VIEW OF THE CHEST 07/16/2023 5:34 am COMPARISON: Chest x-ray on 07/15/2023 HISTORY: ORDERING SYSTEM PROVIDED HISTORY: Reason for Exam: Vascular congestion FINDINGS: Cardiomegaly is stable. The pulmonary vascular congestion is increased since the prior day. Small to moderate-sized bilateral pleural effusions are present. There is no pneumothorax. IMPRESSION: Worsening congestive heart failure. Interpreted by: Asif Perry MD Preliminary Report By: Asif Perry MD Electronically signed By Asif Perry MD Dictated Date: 07/16/2023 5:41:04 AM Prelim Date: 07/16/2023 5:42:14 AM Sign Date: 07/16/2023 5:42:14 AM Ordering Provider: ZAINAB Pollard [facility] ([place]) .Auto Diffon 07-15-2023 Basophil, Absolute 0.0 10 3/mcL Normal 0.0-0.3 [facility] ([place]) Comment on above: Performed By: #### A DIFF, CBC, ANEU, BMP, GFR #### [address] [address] Basophils/100 WBC (Bld) 0.4 % Normal 0.0-2.5 A [facility] ([place]) Comment on above: Performed By: #### A DIFF, CBC, ANEU, BMP, GFR #### [address] [address] Eosinophil, Absolute 0.2 10 3/mcL Normal 0.0-0.7 [facility] ([place]) Comment on above: Performed By: #### A DIFF, CBC, ANEU, BMP, GFR #### [address] [address] Eosinophils/100 WBC (Bld) 3.2 % Normal 0.0-6.0 [facility] ([place]) Comment on above: Performed By: #### A DIFF, CBC, ANEU, BMP, GFR #### [address] [address] Lymphocyte, Absolute 0.4 10 3/mcL Low 0.9-4.3 [facility] ([place]) Comment on above: Performed By: #### A DIFF, CBC, ANEU, BMP, GFR #### [address] [address] Lymphocytes/100 WBC (Bld) 5.9 % Low 20.0-40.0 [facility] ([place]) Comment on above: Performed By: #### A DIFF, CBC, ANEU, BMP, GFR #### [address] [address] Monocyte, Absolute 0.7 10 3/mcL Normal 0.1-1.4 [facility] ([place]) Comment on above: Performed By: #### A DIFF, CBC, ANEU, BMP, GFR #### [address] [address] Monocytes/100 WBC (Bld) 10.3 % Normal 2.0-13.0 A [facility] ([place]) Comment on above: Performed By: #### A DIFF, CBC, ANEU, BMP, GFR #### [address] [address] Neutrophils/100 WBC (Bld) 80.2 % High 50.0-75.0 [facility] ([place]) Comment on above: Performed By: #### A DIFF, CBC, ANEU, BMP, GFR #### [address] [address] .GFRon 07-15-2023 GFR 27 ml/min/1.73sqm Normal [facility] ([place]) Comment on above: Result Comment: GFR Population mean for , Non- Americans Ages 20-29 = 116 mL/min/1.73 sq.m. Ages 30-39 = 107 mL/min/1.73 sq.m. Ages 40-49 = 99 mL/min/1.73 sq.m. Ages 50-59 = 93 mL/min/1.73 sq.m. Ages 60-69 = 85 mL/min/1.73 sq.m. Ages 70+ = 75 mL/min/1.73 sq.m. Chronic Kidney Disease: Less than 60 mL/min/1.73 square meters End Stage Renal Disease: Less than 15 mL/min/1.73 square meters Performed By: #### A DIFF, CBC, ANEU, BMP, GFR #### [address] [address] GFR Non- 22 ml/min/1.73sqm Normal [facility] ([place]) Comment on above: Result Comment: GFR Population mean for , Non- Americans Ages 20-29 = 116 mL/min/1.73 sq.m. Ages 30-39 = 107 mL/min/1.73 sq.m. Ages 40-49 = 99 mL/min/1.73 sq.m. Ages 50-59 = 93 mL/min/1.73 sq.m. Ages 60-69 = 85 mL/min/1.73 sq.m. Ages 70+ = 75 mL/min/1.73 sq.m. Chronic Kidney Disease: Less than 60 mL/min/1.73 square meters End Stage Renal Disease: Less than 15 mL/min/1.73 square meters Performed By: #### A DIFF, CBC, ANEU, BMP, GFR #### [address] [address] .NEUABSon 07-15-2023 Neutrophil, Absolute 5.6 10 3/mcL Normal 2.3-8.1 [facility] ([place]) Comment on above: Performed By: #### A DIFF, CBC, ANEU, BMP, GFR #### [address] [address] BMPon 07-15-2023 BUN/Creatinine Ratio 25.2 ratio High 10.0-22.0 [facility] ([place]) Comment on above: Performed By: #### A DIFF, CBC, ANEU, BMP, GFR #### [address] [address] Calcium [Mass/Vol] 9.4 mg/dL Normal 8.7-10.4 [facility] ([place]) Comment on above: Performed By: #### A DIFF, CBC, ANEU, BMP, GFR #### [address] [address] Chloride [Moles/Vol] 102 mmol/L Normal 98-110 [facility] ([place]) Comment on above: Performed By: #### A DIFF, CBC, ANEU, BMP, GFR #### [address] [address] CO2 [Moles/Vol] 28 mmol/L Normal 22-32 [facility] ([place]) Comment on above: Performed By: #### A DIFF, CBC, ANEU, BMP, GFR #### [address] [address] Creatinine [Mass/Vol] 2.10 mg/dL High 0.50-1.20 [facility] ([place]) Comment on above: Performed By: #### A DIFF, CBC, ANEU, BMP, GFR #### [address] [address] Electrolyte Balance 6.0 mEq/L Normal 4.0-15.0 [facility] ([place]) Comment on above: Performed By: #### A DIFF, CBC, ANEU, BMP, GFR #### [address] [address] Glucose [Mass/Vol] 159 mg/dL High 82-115 [facility] ([place]) Comment on above: Performed By: #### A DIFF, CBC, ANEU, BMP, GFR #### [address] [address] Potassium [Moles/Vol] 3.9 mmol/L Normal 3.5-5.0 [facility] ([place]) Comment on above: Performed By: #### A DIFF, CBC, ANEU, BMP, GFR #### [address] [address] Sodium [Moles/Vol] 136 mmol/L Normal 136-145 [facility] ([place]) Comment on above: Performed By: #### A DIFF, CBC, ANEU, BMP, GFR #### [place] [address] Urea nitrogen [Mass/Vol] 53.0 mg/dL High 8.0-22.0 [facility] ([place]) Comment on above: Performed By: #### A DIFF, CBC, ANEU, BMP, GFR #### [address] [address] CBCon 07-15-2023 Erythrocyte distribution width (RBC) [Ratio] 14.1 % Normal 11.5-15.5 [facility] ([place]) Comment on above: Performed By: #### A DIFF, CBC, ANEU, BMP, GFR #### [place] [id number] Hematocrit (Bld) [Volume fraction] 30.1 % Low 34.0-46.0 [facility] ([place]) Comment on above: Performed By: #### A DIFF, CBC, ANEU, BMP, GFR #### [place] [id number] Hgb 10.1 G/dL Low 12.0-16.0 [facility] ([place]) Comment on above: Performed By: #### A DIFF, CBC, ANEU, BMP, GFR #### [place] [address] MCH (RBC) [Entitic mass] 30.1 pg Normal 27.0-33.0 [facility] ([place]) Comment on above: Performed By: #### A DIFF, CBC, ANEU, BMP, GFR #### [place] [address] MCHC 33.5 G/dL Normal 32.0-36.0 [facility] ([place]) Comment on above: Performed By: #### A DIFF, CBC, ANEU, BMP, GFR #### [place] [address] MCV (RBC) [Entitic vol] 89.8 fL Normal 80.0-99.0 A [facility] ([place]) Comment on above: Performed By: #### A DIFF, CBC, ANEU, BMP, GFR #### [place] [address] Platelet 224 10 3/mcL Normal 150-450 [facility] ([place]) Comment on above: Performed By: #### A DIFF, CBC, ANEU, BMP, GFR #### [place] [address] Platelet mean volume (Bld) [Entitic vol] 8.3 fL Normal 6.6-10.5 [facility] ([place]) Comment on above: Performed By: #### A DIFF, CBC, ANEU, BMP, GFR #### [place] [address] RBC 3.35 10 6/mcL Low 4.10-5.30 [facility] ([place]) Comment on above: Performed By: #### A DIFF, CBC, ANEU, BMP, GFR #### [place] [address] WBC 7.0 10 3/mcL Normal 4.5-10.8 [facility] ([place]) Comment on above: Performed By: #### A DIFF, CBC, ANEU, BMP, GFR #### [address] [address] Nicho 07-15-2023 Potassium [Moles/Vol] 4.0 mmol/L Normal 3.5-5.0 [facility] ([place]) Comment on above: Performed By: #### K #### [address] [address] LABORATORYOrdered By: SYSTEM SYSTEM on 07-15-2023 Magnesium [Mass/Vol] 2.1 mg/dL Normal 1.6 - 2 .4 mg/dL AH ADM SS Basophils (Bld) [#/Vol] 0.0 103/mcL Normal 0.0 - 0.3 10^3/mcL AH Workflow SS Basophils/100 WBC (Bld) 0.4 % Normal 0.0 - 2.5 % AH Workflow SS Eosinophils (Bld) [#/Vol] 0.2 103/mcL Normal 0. 0 - 0.7 10^3/mcL AH Workflow SS Eosinophils/100 WBC (Bld) 3.2 % Normal 0. 0 - 6.0 % AH Workflow SS Erythrocyte distribution width (RBC) [Ratio] 14.1 % Normal 11.5 - 15.5 % AH Workflow SS Hematocrit (Bld) [Volume fraction] 30.1 % Low 34.0 - 46.0 % AH Workflow SS Hemoglobin (Bld) [Mass/Vol] 10.1 G/dL Low 12.0 - 16.0 G/dL AH Workflow SS Lymphocytes (Bld) [#/Vol] 0.4 103/mcL Low 0. 9 - 4.3 10^3/mcL AH Workflow SS Lymphocytes/100 WBC (Bld) 5.9 % Low 20 .0 - 40.0 % AH Workflow SS MCH (RBC) [Entitic mass] 30.1 pg Normal 27. 0 - 33.0 pg AH Workflow SS MCHC 33.5 G/dL Normal 32.0 - 36.0 G/dL AH Workflow SS MCV (RBC) [Entitic vol] 89.8 fL Normal 80.0 - 99.0 fL AH Workflow SS Monocytes (Bld) [#/Vol] 0.7 103/mcL Normal 0.1 - 1.4 10^3/mcL AH Workflow SS Monocytes/100 WBC (Bld) 10.3 % Normal 2.0 - 13.0 % AH Workflow SS Neutrophils (Bld) [#/Vol] 5.6 103/mcL Normal 2. 3 - 8.1 10^3/mcL AH Workflow SS Neutrophils/100 WBC (Bld) 80.2 % High 50 .0 - 75.0 % AH Workflow SS Platelet mean volume (Bld) [Entitic vol] 8.3 fL Normal 6.6 - 10.5 fL AH Workflow SS Platelets (Bld) [#/Vol] 224 103/mcL Normal 150 - 450 10^3/mcL AH Workflow SS RBC (Bld) [#/Vol] 3.35 106/mcL Low 4.10 - 5.30 10^6/mcL AH Workflow SS WBC (Bld) [#/Vol] 7.0 103/mcL Normal 4.5 - 10.8 10^3/mcL AH Workflow SS MGon 07-15-2023 Magnesium [Mass/Vol] 2.1 mg/dL Normal 1.6-2.4 [facility] ([place]) Comment on above: Performed By: #### M Artemio #### [address] [address] XR CHEST 1 VIEWon 07-15-2023 XR CHEST 1 VIEW ORIGINAL EXAMINATION: ONE XRAY VIEW OF THE CHEST 07/15/2023 5:34 am COMPARISON: 07/14/2023. HISTORY: ORDERING SYSTEM PROVIDED HISTORY: Reason for Exam: abn breath sounds IMPRESSION: Moderate cardiomegaly with bilateral congestion/edema and small bilateral effusions. No pneumothorax. No interval change. Interpreted by: Paulo Breen MD Preliminary Report By: Paulo Breen MD Electronically signed By Paulo Breen MD Dictated Date: 07/15/2023 6:06:17 AM Prelim Date: 07/15/2023 6:06:47 AM Sign Date: 07/15/2023 6:06:47 AM Ordering Provider: MELANIA Pollard [facility] ([place]) .Auto Diffon 07-14-2023 Basophil, Absolute 0.0 10 3/mcL Normal 0.0-0.3 [facility] ([place]) Comment on above: Performed By: #### G UCHE #### [address] [address] Basophils/100 WBC (Bld) 0.3 % Normal 0.0-2.5 A [facility] ([place]) Comment on above: Performed By: #### Artemio IVEY, #### [address] [address] Eosinophil, Absolute 0.1 10 3/mcL Normal 0.0-0.7 [facility] ([place]) Comment on above: Performed By: #### Artemio IVEY, #### [address] [address] Eosinophils/100 WBC (Bld) 1.1 % Normal 0.0-6.0 [facility] ([place]) Comment on above: Performed By: #### Artemio IVEY, #### [address] [address] Lymphocyte, Absolute 0.4 10 3/mcL Low 0.9-4.3 [facility] ([place]) Comment on above: Performed By: #### Artemio IVEY, #### [address] [address] Lymphocytes/100 WBC (Bld) 4.6 % Low 20.0-40.0 [facility] ([place]) Comment on above: Performed By: #### Artemio IVEY, #### [address] [address] Monocyte, Absolute 0.9 10 3/mcL Normal 0.1-1.4 [facility] ([place]) Comment on above: Performed By: #### rAtemio IVEY, #### [address] [address] Monocytes/100 WBC (Bld) 10.0 % Normal 2.0-13.0 A [facility] ([place]) Comment on above: Performed By: #### Artemio IVEY, #### [address] [address] Neutrophils/100 WBC (Bld) 84.0 % High 50.0-75.0 [facility] ([place]) Comment on above: Performed By: #### Artemio IVEY, HH #### [address] [address] .GFRon 07-14-2023 GFR Non- 22 ml/min/1.73sqm Normal [facility] ([place]) Comment on above: Result Comment: GFR Population mean for , Non- Americans Ages 20-29 = 116 mL/min/1.73 sq.m. Ages 30-39 = 107 mL/min/1.73 sq.m. Ages 40-49 = 99 mL/min/1.73 sq.m. Ages 50-59 = 93 mL/min/1.73 sq.m. Ages 60-69 = 85 mL/min/1.73 sq.m. Ages 70+ = 75 mL/min/1.73 sq.m. Chronic Kidney Disease: Less than 60 mL/min/1.73 square meters End Stage Renal Disease: Less than 15 mL/min/1.73 square meters Performed By: #### RICARDO MOROCHO #### [address] [address] GFR 27 ml/min/1.73sqm Normal [facility] ([place]) Comment on above: Result Comment: GFR Population mean for , Non- Americans Ages 20-29 = 116 mL/min/1.73 sq.m. Ages 30-39 = 107 mL/min/1.73 sq.m. Ages 40-49 = 99 mL/min/1.73 sq.m. Ages 50-59 = 93 mL/min/1.73 sq.m. Ages 60-69 = 85 mL/min/1.73 sq.m. Ages 70+ = 75 mL/min/1.73 sq.m. Chronic Kidney Disease: Less than 60 mL/min/1.73 square meters End Stage Renal Disease: Less than 15 mL/min/1.73 square meters Performed By: #### RICARDO MOROCHO #### [address] [address] .NEUABSon 07-14-2023 Neutrophil, Absolute 7.9 10 3/mcL Normal 2.3-8.1 [facility] ([place]) Comment on above: Performed By: ###Kerline IVEY #### [address] [address] A1Con 07-14-2023 HbA1c (Bld) [Mass fraction] 8.6 % High 4.0-6.0 [facility] ([place]) Comment on above: Performed By: #### G UCHE, #### [address] [address] BGon 07-14-2023 Base excess Calc (Bld) [Moles/Vol] -2.3000 mmol/L Normal [facility] ([place]) Comment on above: Performed By: #### K #### [address] [address] CO2 [Moles/Vol] 23.4 mmol/L Normal 22.0-30.0 [facility] ([place]) Comment on above: Performed By: #### K #### [place] [id number] HCO3 (Bld) [Moles/Vol] 22.2 mmol/L Normal 21.0-29.0 A [facility] ([place]) Comment on above: Performed By: #### K #### [place] [address] Oxygen (Bld) [Partial pressure] 55.7 mm[Hg] Low 74.0-108.0 [facility] ([place]) Comment on above: Performed By: #### K #### [place] [address] Oxygen saturation in Blood 89.0 % Low 92.0-96.0 [facility] ([place]) Comment on above: Performed By: #### K #### [address] [address] pCO2 37.5 mmHg Normal 32.0-46.0 [facility] ([place]) Comment on above: Performed By: #### K #### [address] [address] pH (Bld) 7.391 [pH] Normal 7.380-7.46 0 [facility] ([place]) Comment on above: Performed By: #### K #### [address] [address] CBCon 07-14-2023 Erythrocyte distribution width (RBC) [Ratio] 14.2 % Normal 11.5-15.5 [facility] ([place]) Comment on above: Performed By: #### Artemio IVEY, #### [place] [address] Hematocrit (Bld) [Volume fraction] 31.9 % Low 34.0-46.0 [facility] ([place]) Comment on above: Performed By: #### Artemio IVEY, #### [place] [address] Hgb 10.8 G/dL Low 12.0-16.0 [facility] ([place]) Comment on above: Performed By: #### Artemio IVEY, #### [place] [address] MCH (RBC) [Entitic mass] 30.7 pg Normal 27.0-33.0 [facility] ([place]) Comment on above: Performed By: #### Artemio IVEY, #### [place] [address] MCHC 33.7 G/dL Normal 32.0-36.0 [facility] ([place]) Comment on above: Performed By: #### Artemio IVEY, #### [place] [address] MCV (RBC) [Entitic vol] 91.1 fL Normal 80.0-99.0 A [facility] ([place]) Comment on above: Performed By: #### Artemio IVEY, #### [place] [address] Platelet 232 10 3/mcL Normal 150-450 [facility] ([place]) Comment on above: Performed By: #### Artemio IVEY, #### [place] [id number] Platelet mean volume (Bld) [Entitic vol] 9.0 fL Normal 6.6-10.5 [facility] ([place]) Comment on above: Performed By: #### Artemio IVEY, #### [place] [id number] RBC 3.51 10 6/mcL Low 4.10-5.30 [facility] ([place]) Comment on above: Performed By: #### Artemio IVEY, #### [address] [address] WBC 9.4 10 3/mcL Normal 4.5-10.8 [facility] ([place]) Comment on above: Performed By: #### Artemio IVEY, #### [address] [address] CMPon 07-14-2023 Albumin Level 2.6 G/dL Low 3.2-4.8 [facility] ([place]) Comment on above: Performed By: #### Artemio IVEY, #### [place] [id number] Albumin/Globulin [Mass ratio] 0.8 {ratio} Low 0.9-1.6 [facility] ([place]) Comment on above: Performed By: #### Artemio IVEY, #### [address] [address] ALP [Catalytic activity/Vol] 77 U/L Normal 38-126 [facility] ([place]) Comment on above: Performed By: #### Artemio IVEY, #### [place] [id number] ALT/SGPT <8 Low 10-49 [facility] ([place]) Comment on above: Performed By: #### Artemio IVEY, #### [place] [id number] AST [Catalytic activity/Vol] 12 U/L Normal 8-34 [facility] ([place]) Comment on above: Performed By: #### Artemio IVEY #### [place] [address] Bili Total 0.30 mg/dL Normal 0.20-1.20 [facility] ([place]) Comment on above: Result Comment: Use of this assay is not recommended for patients undergoing treatment with eltrombopag due to the potential for falsely elevated results. Performed By: #### Artemio IVEY, #### [place] [id number] BUN/Creatinine Ratio 22.6 ratio High 10.0-22.0 [facility] ([place]) Comment on above: Performed By: #### Artemio IVEY #### [address] [address] Calcium [Mass/Vol] 9.4 mg/dL Normal 8.7-10.4 [facility] ([place]) Comment on above: Performed By: #### Artemio IVEY, #### [address] [address] Chloride [Moles/Vol] 103 mmol/L Normal 98-110 [facility] ([place] Comment on above: Performed By: #### Artemio IVEY, #### [address] [address] CO2 [Moles/Vol] 27 mmol/L Normal 22-32 [facility] ([place]) Comment on above: Performed By: #### Artemio IVEY, #### [address] [address] Creatinine [Mass/Vol] 2.12 mg/dL High 0.50-1.20 [facility] ([place]) Comment on above: Performed By: #### Artemio IVEY, #### [address] [address] Electrolyte Balance 6.0 mEq/L Normal 4.0-15.0 [facility] ([place]) Comment on above: Performed By: #### Artemio IVEY, #### [address] [address] Globulin 3.3 G/dL Normal 1.5-3.8 [facility] ([place]) Comment on above: Performed By: #### Artemio IVEY, #### [address] [address] Glucose [Mass/Vol] 199 mg/dL High 82-115 [facility] ([place]) Comment on above: Performed By: #### Artemio IVEY, HH #### [address] [address] Potassium [Moles/Vol] 4.6 mmol/L Normal 3.5-5.0 [facility] ([place]) Comment on above: Performed By: #### Artemio IVEY, #### [address] [address] Sodium [Moles/Vol] 136 mmol/L Normal 136-145 [facility] ([place]) Comment on above: Performed By: #### Atremio UCHE, #### [address] [address] Total Protein 5.9 G/dL Normal 5.7-8.2 [facility] ([place]) Comment on above: Result Comment: No te - New Reference Range in effect 19 Performed By: #### Artemio IVEY, #### [address] [address] Urea nitrogen [Mass/Vol] 48.0 mg/dL High 8.0-22.0 [facility] ([place]) Comment on above: Performed By: #### Artemio IVEY, #### [address] [address] LABORATORYOrdered By: SYSTEM SYSTEM on 07-14-2023 Albumin BCP dye [Mass/Vol] 2.6 G/dL Low 3 .2 - 4.8 G/dL ADM SS Albumin/Globulin [Mass ratio] 0.8 {ratio} Low 0.9 - 1.6 ratio ADM SS ALP [Catalytic activity/Vol] 77 U/L Normal 38 - 126 U/L ADM SS ALT No additional P-5'-P [Catalytic activity/Vol] U/L 1 Low 10 - 49 U/L ADM SS AST [Catalytic activity/Vol] 12 U/L Normal 8 - 34 U/L AH ADM SS Basophils (Bld) [#/Vol] 0.0 103/mcL Normal 0.0 - 0.3 10^3/mcL AH Workflow SS Basophils/100 WBC (Bld) 0.3 % Normal 0.0 - 2.5 % Workflow SS Bilirubin [Mass/Vol] 0.30 mg/dL Normal 0.20 - 1.20 mg/dL ADM SS Comment on above: Interpretive Data: U se of this assay is not recommended for patients undergoing treatment with eltrombopag due to the potential for falsely elevated results. Eosinophils (Bld) [#/Vol] 0.1 103/mcL Normal 0. 0 - 0.7 10^3/mcL AH Workflow SS Eosinophils/100 WBC (Bld) 1.1 % Normal 0. 0 - 6.0 % AH Workflow SS Erythrocyte distribution width (RBC) [Ratio] 14.2 % Normal 11.5 - 15.5 % AH Workflow SS Globulin 3.3 G/dL Normal 1.5 - 3.8 G/dL AH ADM SS HbA1c (Bld) [Mass fraction] 8.6 % High 4.0 - 6.0 % AH Auto Chem SS Hematocrit (Bld) [Volume fraction] 31.9 % Low 34.0 - 46.0 % AH Workflow SS Hemoglobin (Bld) [Mass/Vol] 10.8 G/dL Low 12.0 - 16.0 G/dL AH Workflow SS Lymphocytes (Bld) [#/Vol] 0.4 103/mcL Low 0. 9 - 4.3 10^3/mcL AH Workflow SS Lymphocytes/100 WBC (Bld) 4.6 % Low 20 .0 - 40.0 % AH Workflow SS MCH (RBC) [Entitic mass] 30.7 pg Normal 27. 0 - 33.0 pg AH Workflow SS MCHC 33.7 G/dL Normal 32.0 - 36.0 G/dL AH Workflow SS MCV (RBC) [Entitic vol] 91.1 fL Normal 80.0 - 99.0 fL AH Workflow SS Monocytes (Bld) [#/Vol] 0.9 103/mcL Normal 0.1 - 1.4 10^3/mcL AH Workflow SS Monocytes/100 WBC (Bld) 10.0 % Normal 2.0 - 13.0 % AH Workflow SS Neutrophils (Bld) [#/Vol] 7.9 103/mcL Normal 2. 3 - 8.1 10^3/mcL AH Workflow SS Neutrophils/100 WBC (Bld) 84.0 % High 50 .0 - 75.0 % AH Workflow SS Platelet mean volume (Bld) [Entitic vol] 9.0 fL Normal 6.6 - 10.5 fL AH Workflow SS Platelets (Bld) [#/Vol] 232 103/mcL Normal 150 - 450 10^3/mcL AH Workflow SS Protein [Mass/Vol] 5.9 G/dL Normal 5.7 - 8.2 G/dL ADM SS Comment on above: Interpretive Data: * *Note - New Reference Range in effect 19 RBC (Bld) [#/Vol] 3.51 106/mcL Low 4.10 - 5.30 10^6/mcL AH Workflow SS WBC (Bld) [#/Vol] 9.4 103/mcL Normal 4.5 - 10.8 10^3/mcL Workflow SS LABORATORYOrdered By: Nola Haddad on 07-14-2023 Base Excess -2.3 mmol/L Invalid Interpretation Code Main Rapid Comm SS CO2 [Moles/Vol] 23.4 mmol/L Normal 22.0 - 30.0 mmol/L Main Rapid Comm SS HCO3 (Bld) [Moles/Vol] 22.2 mmol/L Normal 21.0 - 29.0 mmol/L Main Rapid Comm SS Oxygen (Bld) [Partial pressure] 55.7 mm[Hg] Low 74.0 - 108.0 mm Hg Main Rapid Comm SS pCO2 37.5 mm[Hg] Normal 32.0 - 46.0 mm Hg Main Rapid Comm SS pH (Bld) 7.391 [pH] Normal 7.380 - 7.460 Main Rapid Comm SS XR CHEST 1 VIEWon 07-14-2023 XR CHEST 1 VIEW ORIGINAL EXAMINATION: ONE XRAY VIEW OF THE CHEST 07/14/2023 5:50 am COMPARISON: None. HISTORY: ORDERING SYSTEM PROVIDED HISTORY: Reason for Exam: hypoxia FINDINGS: Mild cardiomegaly. Small bilateral effusions. Hazy airspace disease at the lung bases. IMPRESSION: Congestion/edema with small bilateral effusions. Interpreted by: Paulo Breen MD Preliminary Report By: Paulo Breen MD Electronically signed By Paulo Breen MD Dictated Date: 07/14/2023 6:18:01 AM Prelim Date: 07/14/2023 6:18:16 AM Sign Date: 07/14/2023 6:18:16 AM Ordering Provider: VIRY Pollard [facility] ([place]) .Auto Diffon 07-13-2023 Basophil, Absolute 0.0 10 3/mcL Normal 0.0-0.3 [facility] ([place]) Comment on above: Performed By: #### A DIFF, CBC, ANEU, BMP, GFR #### [address] [address] Basophils/100 WBC (Bld) 0.4 % Normal 0.0-2.5 A [facility] ([place]) Comment on above: Performed By: #### A DIFF, CBC, ANEU, BMP, GFR #### [address] [address] Eosinophil, Absolute 0.1 10 3/mcL Normal 0.0-0.7 [facility] ([place]) Comment on above: Performed By: #### A DIFF, CBC, ANEU, BMP, GFR #### [address] [address] Eosinophils/100 WBC (Bld) 1.4 % Normal 0.0-6.0 [facility] ([place]) Comment on above: Performed By: #### A DIFF, CBC, ANEU, BMP, GFR #### [address] [address] Lymphocyte, Absolute 0.4 10 3/mcL Low 0.9-4.3 [facility] ([place]) Comment on above: Performed By: #### A DIFF, CBC, ANEU, BMP, GFR #### [address] [address] Lymphocytes/100 WBC (Bld) 5.3 % Low 20.0-40.0 [facility] ([place]) Comment on above: Performed By: #### A DIFF, CBC, ANEU, BMP, GFR #### [address] [address] Monocyte, Absolute 0.8 10 3/mcL Normal 0.1-1.4 [facility] [facility] ([place] Comment on above: Performed By: #### A DIFF, CBC, ANEU, BMP, GFR #### [address] [address] Monocytes/100 WBC (Bld) 9.4 % Normal 2.0-13.0 [facility] ([place]) Comment on above: Performed By: #### A DIFF, CBC, ANEU, BMP, GFR #### [address] [address] Neutrophils/100 WBC (Bld) 83.5 % High 50.0-75.0 [facility] ([place]) Comment on above: Performed By: #### A DIFF, CBC, ANEU, BMP, GFR #### [address] [address] .GFRon 07-13-2023 GFR Non- 20 ml/min/1.73sqm Normal [facility] ([place]) Comment on above: Result Comment: GFR Population mean for , Non- Americans Ages 20-29 = 116 mL/min/1.73 sq.m. Ages 30-39 = 107 mL/min/1.73 sq.m. Ages 40-49 = 99 mL/min/1.73 sq.m. Ages 50-59 = 93 mL/min/1.73 sq.m. Ages 60-69 = 85 mL/min/1.73 sq.m. Ages 70+ = 75 mL/min/1.73 sq.m. Chronic Kidney Disease: Less than 60 mL/min/1.73 square meters End Stage Renal Disease: Less than 15 mL/min/1.73 square meters Performed By: #### A DIFF, CBC, ANEU, BMP, GFR #### [place] [id number] GFR 25 ml/min/1.73sqm Normal [facility] ([place]) Comment on above: Result Comment: GFR Population mean for , Non- Americans Ages 20-29 = 116 mL/min/1.73 sq.m. Ages 30-39 = 107 mL/min/1.73 sq.m. Ages 40-49 = 99 mL/min/1.73 sq.m. Ages 50-59 = 93 mL/min/1.73 sq.m. Ages 60-69 = 85 mL/min/1.73 sq.m. Ages 70+ = 75 mL/min/1.73 sq.m. Chronic Kidney Disease: Less than 60 mL/min/1.73 square meters End Stage Renal Disease: Less than 15 mL/min/1.73 square meters Performed By: #### A DIFF, CBC, ANEU, BMP, GFR #### [address] [address] .NEUABSon 07-13-2023 Neutrophil, Absolute 7.0 10 3/mcL Normal 2.3-8.1 [facility] ([place]) Comment on above: Performed By: #### A DIFF, CBC, ANEU, BMP, GFR #### [address] [address] BGon 07-13-2023 Base excess Calc (Bld) [Moles/Vol] -1.7000 mmol/L Normal [facility] ([place]) Comment on above: Performed By: #### Artemio IVEY, #### [address] [address] CO2 [Moles/Vol] 25.7 mmol/L Normal 22.0-30.0 [facility] ([place]) Comment on above: Performed By: #### Artemio IVEY, #### [address] [address] HCO3 (Bld) [Moles/Vol] 24.3 mmol/L Normal 21.0-29.0 [facility] ([place]) Comment on above: Performed By: #### Artemio IVEY, #### [address] [address] Oxygen (Bld) [Partial pressure] 88.2 mm[Hg] Normal 74.0-108.0 [facility] ([place]) Comment on above: Performed By: #### Artemio IVEY, #### [address] [address] Oxygen saturation in Blood 96.7 % High 92.0-96.0 [facility] ([place]) Comment on above: Performed By: #### Artemio IVEY, #### [address] [address] pCO2 46.3 mmHg High 32.0-46.0 [facility] ([place]) Comment on above: Performed By: #### Artemio IVEY, #### [address] [address] pH (Bld) 7.338 [pH] Low 7.380-7.46 0 [facility] ([place]) Comment on above: Performed By: #### Artemio IVEY, #### [address] [address] BMPon 07-13-2023 BUN/Creatinine Ratio 18.9 ratio Normal 10.0-22.0 [facility] ([place]) Comment on above: Performed By: #### A DIFF, CBC, ANEU, BMP, GFR #### [address] [address] Calcium [Mass/Vol] 8.8 mg/dL Normal 8.7-10.4 [facility] ([place]) Comment on above: Performed By: #### A DIFF, CBC, ANEU, BMP, GFR #### [address] [address] Chloride [Moles/Vol] 104 mmol/L Normal 98-110 [facility] ([place]) Comment on above: Performed By: #### A DIFF, CBC, ANEU, BMP, GFR #### [address] [address] CO2 [Moles/Vol] 26 mmol/L Normal 22-32 [facility] ([place]) Comment on above: Performed By: #### A DIFF, CBC, ANEU, BMP, GFR #### [address] [address] Creatinine [Mass/Vol] 2.28 mg/dL High 0.50-1.20 [facility] ([place]) Comment on above: Performed By: #### A DIFF, CBC, ANEU, BMP, GFR #### [address] [address] Electrolyte Balance 7.0 mEq/L Normal 4.0-15.0 [facility] ([place]) Comment on above: Performed By: #### A DIFF, CBC, ANEU, BMP, GFR #### [address] [address] Glucose [Mass/Vol] 146 mg/dL High 82-115 [facility] ([place]) Comment on above: Performed By: #### A DIFF, CBC, ANEU, BMP, GFR #### [address] [address] Potassium [Moles/Vol] 4.2 mmol/L Normal 3.5-5.0 [facility] ([place]) Comment on above: Performed By: #### A DIFF, CBC, ANEU, BMP, GFR #### [address] [address] Sodium [Moles/Vol] 137 mmol/L Normal 136-145 [facility] ([place]) Comment on above: Performed By: #### A DIFF, CBC, ANEU, BMP, GFR #### [place] [address] Urea nitrogen [Mass/Vol] 43.0 mg/dL High 8.0-22.0 [facility] ([place]) Comment on above: Performed By: #### A DIFF, CBC, ANEU, BMP, GFR #### [place] [address] CBCon 07-13-2023 Erythrocyte distribution width (RBC) [Ratio] 14.4 % Normal 11.5-15.5 [facility] ([place]) Comment on above: Performed By: #### A DIFF, CBC, ANEU, BMP, GFR #### [place] [address] Hematocrit (Bld) [Volume fraction] 33.8 % Low 34.0-46.0 [facility] ([place]) Comment on above: Performed By: #### A DIFF, CBC, ANEU, BMP, GFR #### [place] [address] Hgb 11.4 G/dL Low 12.0-16.0 [facility] ([place]) Comment on above: Performed By: #### A DIFF, CBC, ANEU, BMP, GFR #### [place] [address] MCH (RBC) [Entitic mass] 30.3 pg Normal 27.0-33.0 [facility] ([place]) Comment on above: Performed By: #### A DIFF, CBC, ANEU, BMP, GFR #### [place] [address] MCHC 33.7 G/dL Normal 32.0-36.0 [facility] ([place]) Comment on above: Performed By: #### A DIFF, CBC, ANEU, BMP, GFR #### [place] [address] MCV (RBC) [Entitic vol] 89.9 fL Normal 80.0-99.0 [facility] ([place]) Comment on above: Performed By: #### A DIFF, CBC, ANEU, BMP, GFR #### [address] [address] Platelet 208 10 3/mcL Normal 150-450 [facility] ([place]) Comment on above: Performed By: #### A DIFF, CBC, ANEU, BMP, GFR #### [address] [address] Platelet mean volume (Bld) [Entitic vol] 8.7 fL Normal 6.6-10.5 [facility] ([place]) Comment on above: Performed By: #### A DIFF, CBC, ANEU, BMP, GFR #### [address] [address] RBC 3.76 10 6/mcL Low 4.10-5.30 [facility] ([place]) Comment on above: Performed By: #### A DIFF, CBC, ANEU, BMP, GFR #### [address] [address] WBC 8.4 10 3/mcL Normal 4.5-10.8 [facility] ([place]) Comment on above: Performed By: #### A DIFF, CBC, ANEU, BMP, GFR #### [address] [address] LABORATORYOrdered By: SYSTEM SYSTEM on 07-13-2023 Basophils (Bld) [#/Vol] 0.0 103/mcL Normal 0.0 - 0.3 10^3/mcL AH Workflow SS Basophils/100 WBC (Bld) 0.4 % Normal 0.0 - 2.5 % AH Workflow SS Eosinophils (Bld) [#/Vol] 0.1 103/mcL Normal 0. 0 - 0.7 10^3/mcL AH Workflow SS Eosinophils/100 WBC (Bld) 1.4 % Normal 0. 0 - 6.0 % AH Workflow SS Erythrocyte distribution width (RBC) [Ratio] 14.4 % Normal 11.5 - 15.5 % AH Workflow SS Hematocrit (Bld) [Volume fraction] 33.8 % Low 34.0 - 46.0 % AH Workflow SS Hemoglobin (Bld) [Mass/Vol] 11.4 G/dL Low 12.0 - 16.0 G/dL AH Workflow SS Lymphocytes (Bld) [#/Vol] 0.4 103/mcL Low 0. 9 - 4.3 10^3/mcL Workflow SS Lymphocytes/100 WBC (Bld) 5.3 % Low 20 .0 - 40.0 % AH Workflow SS MCH (RBC) [Entitic mass] 30.3 pg Normal 27. 0 - 33.0 pg AH Workflow SS MCHC 33.7 G/dL Normal 32.0 - 36.0 G/dL AH Workflow SS MCV (RBC) [Entitic vol] 89.9 fL Normal 80.0 - 99.0 fL AH Workflow SS Monocytes (Bld) [#/Vol] 0.8 103/mcL Normal 0.1 - 1.4 10^3/mcL Workflow SS Monocytes/100 WBC (Bld) 9.4 % Normal 2.0 - 13.0 % AH Workflow SS Neutrophils (Bld) [#/Vol] 7.0 103/mcL Normal 2. 3 - 8.1 10^3/mcL Workflow SS Neutrophils/100 WBC (Bld) 83.5 % High 50 .0 - 75.0 % AH Workflow SS Platelet mean volume (Bld) [Entitic vol] 8.7 fL Normal 6.6 - 10.5 fL AH Workflow SS Platelets (Bld) [#/Vol] 208 103/mcL Normal 150 - 450 10^3/mcL Workflow SS RBC (Bld) [#/Vol] 3.76 106/mcL Low 4.10 - 5.30 10^6/mcL Workflow SS WBC (Bld) [#/Vol] 8.4 103/mcL Normal 4.5 - 10.8 10^3/mcL Workflow SS LABORATORYOrdered By: Renata Bearden on 07-13-2023 Base Excess -1.7 mmol/L Invalid Interpretation Code Main Rapid Comm SS CO2 [Moles/Vol] 25.7 mmol/L Normal 22.0 - 30.0 mmol/L Main Rapid Comm SS HCO3 (Bld) [Moles/Vol] 24.3 mmol/L Normal 21.0 - 29.0 mmol/L Main Rapid Comm SS Oxygen (Bld) [Partial pressure] 88.2 mm[Hg] Normal 74.0 - 108.0 mm Hg Main Rapid Comm SS pCO2 46.3 mm[Hg] High 32.0 - 46.0 mm Hg AH Main Rapid Comm SS pH (Bld) 7.338 [pH] Low 7.380 - 7.460 AH Main Rapid Comm SS XR CHEST 1 VIEWon 07-13-2023 XR CHEST 1 VIEW ORIGINAL EXAMINATION: ONE XRAY VIEW OF THE CHEST 07/13/2023 5:18 am COMPARISON: Chest x-ray 07/12/2023 HISTORY: ORDERING SYSTEM PROVIDED HISTORY: Reason for Exam: decreased breath sounds, hypoxia FINDINGS: Stable left basilar chest tube. Stable cardiomediastinal silhouette enlargement. Unchanged small bilateral pleural effusions with adjacent atelectasis/consolida tion. No vascular congestion. No visualized residual left pneumothorax. Stable osseous structures. IMPRESSION: No visualized residual pneumothorax. Similar bilateral pleural effusions with adjacent bibasilar atelectasis/consolida tion. Preliminary Report was Dictated by a Resident Interpreted by: Paulo Breen MD Preliminary Report By: Geena Johnson Electronically signed By Paulo Breen MD Dictated Date: 07/13/2023 5:44:59 AM Prelim Date: 07/13/2023 5:47:58 AM Sign Date: 07/13/2023 7:30:36 AM Ordering Provider: REBEKAH Pollard [facility] ([place]) .Auto Diffon 07-12-2023 Basophil, Absolute 0.0 10 3/mcL Normal 0.0-0.3 [facility] ([place]) Comment on above: Performed By: #### A DIFF, CBC, ANEU, BMP, GFR #### [address] [address] Basophils/100 WBC (Bld) 0.4 % Normal 0.0-2.5 [facility] ([place]) Comment on above: Performed By: #### A DIFF, CBC, ANEU, BMP, GFR #### [address] [address] Eosinophil, Absolute 0.1 10 3/mcL Normal 0.0-0.7 [facility] ([place]) Comment on above: Performed By: #### A DIFF, CBC, ANEU, BMP, GFR #### [address] [address] Eosinophils/100 WBC (Bld) 1.4 % Normal 0.0-6.0 [facility] ([place]) Comment on above: Performed By: #### A DIFF, CBC, ANEU, BMP, GFR #### [address] [address] Lymphocyte, Absolute 0.8 10 3/mcL Low 0.9-4.3 [facility] ([place]) Comment on above: Performed By: #### A DIFF, CBC, ANEU, BMP, GFR #### [address] [address] Lymphocytes/100 WBC (Bld) 7.9 % Low 20.0-40.0 [facility] ([place]) Comment on above: Performed By: #### A DIFF, CBC, ANEU, BMP, GFR #### [address] [address] Monocyte, Absolute 1.1 10 3/mcL Normal 0.1-1.4 [facility] ([place]) Comment on above: Performed By: #### A DIFF, CBC, ANEU, BMP, GFR #### [address] [address] Monocytes/100 WBC (Bld) 11.6 % Normal 2.0-13.0 [facility] ([place]) Comment on above: Performed By: #### A DIFF, CBC, ANEU, BMP, GFR #### [address] [address] Neutrophils/100 WBC (Bld) 78.7 % High 50.0-75.0 [facility] ([place]) Comment on above: Performed By: #### A DIFF, CBC, ANEU, BMP, GFR #### [address] [address] .GFRon 07-12-2023 GFR 22 ml/min/1.73sqm Normal [facility] ([place]) Comment on above: Result Comment: GFR Population mean for , Non- Americans Ages 20-29 = 116 mL/min/1.73 sq.m. Ages 30-39 = 107 mL/min/1.73 sq.m. Ages 40-49 = 99 mL/min/1.73 sq.m. Ages 50-59 = 93 mL/min/1.73 sq.m. Ages 60-69 = 85 mL/min/1.73 sq.m. Ages 70+ = 75 mL/min/1.73 sq.m. Chronic Kidney Disease: Less than 60 mL/min/1.73 square meters End Stage Renal Disease: Less than 15 mL/min/1.73 square meters Performed By: #### A DIFF, CBC, ANEU, BMP, GFR #### [address] [address] GFR Non- 18 ml/min/1.73sqm Normal [facility] ([place]) Comment on above: Result Comment: GFR Population mean for , Non- Americans Ages 20-29 = 116 mL/min/1.73 sq.m. Ages 30-39 = 107 mL/min/1.73 sq.m. Ages 40-49 = 99 mL/min/1.73 sq.m. Ages 50-59 = 93 mL/min/1.73 sq.m. Ages 60-69 = 85 mL/min/1.73 sq.m. Ages 70+ = 75 mL/min/1.73 sq.m. Chronic Kidney Disease: Less than 60 mL/min/1.73 square meters End Stage Renal Disease: Less than 15 mL/min/1.73 square meters Performed By: #### A DIFF, CBC, ANEU, BMP, GFR #### [address] [address] GFR 22 ml/min/1.73sqm Normal [facility] ([place]) Comment on above: Result Comment: GFR Population mean for , Non- Americans Ages 20-29 = 116 mL/min/1.73 sq.m. Ages 30-39 = 107 mL/min/1.73 sq.m. Ages 40-49 = 99 mL/min/1.73 sq.m. Ages 50-59 = 93 mL/min/1.73 sq.m. Ages 60-69 = 85 mL/min/1.73 sq.m. Ages 70+ = 75 mL/min/1.73 sq.m. Chronic Kidney Disease: Less than 60 mL/min/1.73 square meters End Stage Renal Disease: Less than 15 mL/min/1.73 square meters Performed By: #### A DIFF, CBC, ANEU, BMP, GFR #### [address] [address] GFR Non- 18 ml/min/1.73sqm Normal [facility] ([place]) Comment on above: Result Comment: GFR Population mean for , Non- Americans Ages 20-29 = 116 mL/min/1.73 sq.m. Ages 30-39 = 107 mL/min/1.73 sq.m. Ages 40-49 = 99 mL/min/1.73 sq.m. Ages 50-59 = 93 mL/min/1.73 sq.m. Ages 60-69 = 85 mL/min/1.73 sq.m. Ages 70+ = 75 mL/min/1.73 sq.m. Chronic Kidney Disease: Less than 60 mL/min/1.73 square meters End Stage Renal Disease: Less than 15 mL/min/1.73 square meters Performed By: #### A DIFF, CBC, ANEU, BMP, GFR #### [address] [address] .NEUABSon 07-12-2023 Neutrophil, Absolute 7.7 10 3/mcL Normal 2.3-8.1 [facility] ([place]) Comment on above: Performed By: #### A DIFF, CBC, ANEU, BMP, GFR #### [address] [address] BGon 07-12-2023 Base excess Calc (Bld) [Moles/Vol] -2.1000 mmol/L Normal [facility] ([place]) Comment on above: Performed By: #### RICARDO MOROCHO #### [address] [address] CO2 [Moles/Vol] 25.4 mmol/L Normal 22.0-30.0 [facility] ([place]) Comment on above: Performed By: #### RICARDO MOROCHO #### [address] [address] HCO3 (Bld) [Moles/Vol] 24.0 mmol/L Normal 21.0-29.0 [facility] ([place]) Comment on above: Performed By: #### Artemio IVEY, #### [address] [address] Oxygen (Bld) [Partial pressure] 74.1 mm[Hg] Normal 74.0-108.0 [facility] ([place]) Comment on above: Performed By: #### Artemio IVEY, HH #### [address] [address] Oxygen saturation in Blood 94.5 % Normal 92.0-96.0 [facility] ([place]) Comment on above: Performed By: #### Artemio IVEY, HH #### [address] [address] pCO2 46.8 mmHg High 32.0-46.0 [facility] ([place]) Comment on above: Performed By: #### Artemio IVEY, HH #### [address] [address] pH (Bld) 7.328 [pH] Low 7.380-7.46 0 [facility] ([place]) Comment on above: Performed By: #### Artemio IVEY, #### [address] [address] Base excess Calc (Bld) [Moles/Vol] -2.0000 mmol/L Normal [facility] ([place]) Comment on above: Order Comment: Incre ased o2 demand, AMS Performed By: #### Artemio IVEY, #### [address] [address] CO2 [Moles/Vol] 25.5 mmol/L Normal 22.0-30.0 [facility] ([place]) Comment on above: Order Comment: Incre ased o2 demand, AMS Performed By: #### Artemio IVEY, HH #### [address] [address] HCO3 (Bld) [Moles/Vol] 24.0 mmol/L Normal 21.0-29.0 [facility] ([place]) Comment on above: Order Comment: Incre ased o2 demand, AMS Performed By: #### Artemio IVEY, HH #### [address] [address] Oxygen (Bld) [Partial pressure] 59.9 mm[Hg] Low 74.0-108.0 [facility] ([place]) Comment on above: Order Comment: Incre ased o2 demand, AMS Performed By: #### Artemio IVEY, #### [address] [address] Oxygen saturation in Blood 90.7 % Low 92.0-96.0 [facility] ([place]) Comment on above: Order Comment: Incre ased o2 demand, AMS Performed By: #### Artemio IVEY, #### [address] [address] pCO2 46.1 mmHg High 32.0-46.0 [facility] ([place]) Comment on above: Order Comment: Incre ased o2 demand, AMS Performed By: #### Artemio IVEY, #### [address] [address] pH (Bld) 7.335 [pH] Low 7.380-7.46 0 [facility] ([place]) Comment on above: Order Comment: Incre ased o2 demand, AMS Performed By: #### Artemio IVEY, #### [address] [address] BMPon 07-12-2023 BUN/Creatinine Ratio 18.4 ratio Normal 10.0-22.0 [facility] ([place]) Comment on above: Performed By: #### A DIFF, CBC, ANEU, BMP, GFR #### [address] [address] Calcium [Mass/Vol] 7.8 mg/dL Low 8.7-10.4 [facility] ([place]) Comment on above: Performed By: #### A DIFF, CBC, ANEU, BMP, GFR #### [address] [address] Chloride [Moles/Vol] 102 mmol/L Normal 98-110 [facility] ([place] Comment on above: Performed By: #### A DIFF, CBC, ANEU, BMP, GFR #### [address] [address] CO2 [Moles/Vol] 30 mmol/L Normal 22-32 [facility] ([place]) Comment on above: Performed By: #### A DIFF, CBC, ANEU, BMP, GFR #### [address] [address] Creatinine [Mass/Vol] 2.56 mg/dL High 0.50-1.20 [facility] ([place]) Comment on above: Performed By: #### A DIFF, CBC, ANEU, BMP, GFR #### [address] [address] Electrolyte Balance 6.0 mEq/L Normal 4.0-15.0 [facility] ([place]) Comment on above: Performed By: #### A DIFF, CBC, ANEU, BMP, GFR #### [address] [address] Glucose [Mass/Vol] 162 mg/dL High 82-115 [facility] ([place]) Comment on above: Performed By: #### A DIFF, CBC, ANEU, BMP, GFR #### [address] [address] Potassium [Moles/Vol] 4.5 mmol/L Normal 3.5-5.0 [facility] ([place]) Comment on above: Performed By: #### A DIFF, CBC, ANEU, BMP, GFR #### [address] [address] Sodium [Moles/Vol] 138 mmol/L Normal 136-145 [facility] ([place]) Comment on above: Performed By: #### A DIFF, CBC, ANEU, BMP, GFR #### [address] [address] Urea nitrogen [Mass/Vol] 47.0 mg/dL High 8.0-22.0 [facility] ([place]) Comment on above: Performed By: #### A DIFF, CBC, ANEU, BMP, GFR #### [address] [address] CBCon 07-12-2023 Erythrocyte distribution width (RBC) [Ratio] 14.3 % Normal 11.5-15.5 [facility] ([place]) Comment on above: Performed By: #### A DIFF, CBC, ANEU, BMP, GFR #### [address] [address] Hematocrit (Bld) [Volume fraction] 36.2 % Normal 34.0-46.0 [facility] ([place]) Comment on above: Performed By: #### A DIFF, CBC, ANEU, BMP, GFR #### [address] [address] Hgb 11.6 G/dL Low 12.0-16.0 [facility] ([place]) Comment on above: Performed By: #### A DIFF, CBC, ANEU, BMP, GFR #### [address] [address] MCH (RBC) [Entitic mass] 29.1 pg Normal 27.0-33.0 [facility] ([place]) Comment on above: Performed By: #### A DIFF, CBC, ANEU, BMP, GFR #### [place] [id number] MCHC 32.0 G/dL Normal 32.0-36.0 [facility] ([place]) Comment on above: Performed By: #### A DIFF, CBC, ANEU, BMP, GFR #### [place] [address] MCV (RBC) [Entitic vol] 90.9 fL Normal 80.0-99.0 [facility] ([place]) Comment on above: Performed By: #### A DIFF, CBC, ANEU, BMP, GFR #### [place] [id number] Platelet 217 10 3/mcL Normal 150-450 [facility] ([place]) Comment on above: Performed By: #### A DIFF, CBC, ANEU, BMP, GFR #### [place] [id number] Platelet mean volume (Bld) [Entitic vol] 8.9 fL Normal 6.6-10.5 [facility] ([place]) Comment on above: Performed By: #### A DIFF, CBC, ANEU, BMP, GFR #### [place] [id number] RBC 3.98 10 6/mcL Low 4.10-5.30 [facility] ([place]) Comment on above: Performed By: #### A DIFF, CBC, ANEU, BMP, GFR #### [place] [id number] WBC 9.8 10 3/mcL Normal 4.5-10.8 [facility] ([place]) Comment on above: Performed By: #### A DIFF, CBC, ANEU, BMP, GFR #### [address] [address] CMPon 07-12-2023 Albumin Level 2.3 G/dL Low 3.2-4.8 [facility] ([place]) Comment on above: Performed By: #### A DIFF, CBC, ANEU, BMP, GFR #### [place] [address] Albumin/Globulin [Mass ratio] 0.7 {ratio} Low 0.9-1.6 [facility] ([place]) Comment on above: Performed By: #### A DIFF, CBC, ANEU, BMP, GFR #### [place] [id number] ALP [Catalytic activity/Vol] 75 U/L Normal 38-126 [facility] ([place]) Comment on above: Performed By: #### A DIFF, CBC, ANEU, BMP, GFR #### [place] [address] ALT/SGPT <8 Low 10-49 [facility] ([place]) Comment on above: Performed By: #### A DIFF, CBC, ANEU, BMP, GFR #### [place] [address] AST [Catalytic activity/Vol] 13 U/L Normal 8-34 [facility] ([place]) Comment on above: Performed By: #### A DIFF, CBC, ANEU, BMP, GFR #### [place] [id number] Bili Total 0.30 mg/dL Normal 0.20-1.20 [facility] ([place]) Comment on above: Result Comment: Use of this assay is not recommended for patients undergoing treatment with eltrombopag due to the potential for falsely elevated results. Performed By: #### A DIFF, CBC, ANEU, BMP, GFR #### [place] [id number] BUN/Creatinine Ratio 15.9 ratio Normal 10.0-22.0 [facility] ([place] Comment on above: Performed By: #### A DIFF, CBC, ANEU, BMP, GFR #### [place] [id number] Calcium [Mass/Vol] 8.5 mg/dL Low 8.7-10.4 [facility] ([place]) Comment on above: Performed By: #### A DIFF, CBC, ANEU, BMP, GFR #### [place] [id number] Chloride [Moles/Vol] 102 mmol/L Normal 98-110 [facility] ([place] Comment on above: Performed By: #### A DIFF, CBC, ANEU, BMP, GFR #### [place] [id number] CO2 [Moles/Vol] 28 mmol/L Normal 22-32 [facility] ([place]) Comment on above: Performed By: #### A DIFF, CBC, ANEU, BMP, GFR #### [place] [address] Creatinine [Mass/Vol] 2.52 mg/dL High 0.50-1.20 [facility] ([place]) Comment on above: Performed By: #### A DIFF, CBC, ANEU, BMP, GFR #### [place] [id number] Electrolyte Balance 7.0 mEq/L Normal 4.0-15.0 [facility] ([place]) Comment on above: Performed By: #### A DIFF, CBC, ANEU, BMP, GFR #### [place] [id number] Globulin 3.1 G/dL Normal 1.5-3.8 [facility] ([place]) Comment on above: Performed By: #### A DIFF, CBC, ANEU, BMP, GFR #### [place] [id number] Glucose [Mass/Vol] 154 mg/dL High 82-115 [facility] ([place] Comment on above: Performed By: #### A DIFF, CBC, ANEU, BMP, GFR #### [address] [address] Potassium [Moles/Vol] 4.4 mmol/L Normal 3.5-5.0 [facility] ([place]) Comment on above: Performed By: #### A DIFF, CBC, ANEU, BMP, GFR #### [address] [address] Sodium [Moles/Vol] 137 mmol/L Normal 136-145 [facility] ([place]) Comment on above: Performed By: #### A DIFF, CBC, ANEU, BMP, GFR #### [place] [address] Total Protein 5.4 G/dL Low 5.7-8.2 [facility] ([place]) Comment on above: Result Comment: No te - New Reference Range in effect 19 Performed By: #### A DIFF, CBC, ANEU, BMP, GFR #### [address] [address] Urea nitrogen [Mass/Vol] 40.0 mg/dL High 8.0-22.0 [facility] ([place]) Comment on above: Performed By: #### A DIFF, CBC, ANEU, BMP, GFR #### [address] [address] LABORATORYOrdered By: Maria Esther Ibrahim on 07-12-2023 Base Excess -2.1 mmol/L Invalid Interpretation Code Main Rapid Comm SS CO2 [Moles/Vol] 25.4 mmol/L Normal 22.0 - 30.0 mmol/L Main Rapid Comm SS HCO3 (Bld) [Moles/Vol] 24.0 mmol/L Normal 21.0 - 29.0 mmol/L Main Rapid Comm SS Oxygen (Bld) [Partial pressure] 74.1 mm[Hg] Normal 74.0 - 108.0 mm Hg Main Rapid Comm SS pCO2 46.8 mm[Hg] High 32.0 - 46.0 mm Hg Main Rapid Comm SS pH (Bld) 7.328 [pH] Low 7.380 - 7.460 AH Main Rapid Comm SS LABORATORYOrdered By: Sunni Mccrary on 07-12-2023 Natriuretic peptide.B prohormone N-Terminal IA [Mass/Vol] 5860 pg/mL High 0 - 1800 pg/mL AH ADM SS LABORATORYOrdered By: SYSTEM SYSTEM on 07-12-2023 Albumin BCP dye [Mass/Vol] 2.3 G/dL Low 3 .2 - 4.8 G/dL AH ADM SS Albumin/Globulin [Mass ratio] 0.7 {ratio} Low 0.9 - 1.6 ratio AH ADM SS ALP [Catalytic activity/Vol] 75 U/L Normal 38 - 126 U/L AH ADM SS ALT No additional P-5'-P [Catalytic activity/Vol] U/L 1 Low 10 - 49 U/L AH ADM SS AST [Catalytic activity/Vol] 13 U/L Normal 8 - 34 U/L AH ADM SS Bilirubin [Mass/Vol] 0.30 mg/dL Normal 0.20 - 1.20 mg/dL AH ADM SS Comment on above: Interpretive Data: U se of this assay is not recommended for patients undergoing treatment with eltrombopag due to the potential for falsely elevated results. Globulin 3.1 G/dL Normal 1.5 - 3.8 G/dL AH ADM SS Protein [Mass/Vol] 5.4 G/dL Low 5.7 - 8.2 G/dL AH ADM SS Comment on above: Interpretive Data: * *Note - New Reference Range in effect 19 PBNPon 07-12-2023 Natriuretic peptide B (Bld) [Mass/Vol] 5860 pg/mL High 0-1800 [facility] ([place]) Comment on above: Performed By: #### G UCHE, #### [place] [id number] XR CHEST 1 VIEWon 07-12-2023 XR CHEST 1 VIEW ORIGINAL EXAMINATION: ONE XRAY VIEW OF THE CHEST07/12/2023 9:58 am COMPARISON: 07/12/2023 HISTORY: ORDERING SYSTEM PROVIDED HISTORY: Reason for Exam: chest tube removal FINDINGS: Cardiomegaly. Vascular structures appear within normal limits. Bibasilar atelectasis or other airspace disease. A left pneumothorax measures 1.2 cm, previously 1.4 cm. Left chest tube has been removed. Small pleural effusions not excluded. No aggressive osseous lesions identified.Degenerati ve changes noted of the spine. Surgical clips project in the right axilla. IMPRESSION: 1. Interval removal of the left chest tube. There is a persistent small left pneumothorax. 2. Bibasilar atelectasis or other airspace disease. Small pleural effusions not excluded Interpreted by: Basim Holland MD Preliminary Report By: Basim Holland MD Electronically signed By Basim Holland MD Dictated Date: 07/12/2023 10:09:31 AM Prelim Date: 07/12/2023 10:10:49 AM Sign Date: 07/12/2023 10:10:49 AM Ordering Provider: LIAT GARDINER [facility] ([place]) XR CHEST 1 VIEW ORIGINAL EXAMINATION: ONE XRAY VIEW OF THE CHEST 07/12/2023 2:00 am COMPARISON: Chest x-ray 07/11/2023 HISTORY: ORDERING SYSTEM PROVIDED HISTORY: Reason for Exam: Abnormal breath sounds FINDINGS: Stable left chest tube. Small residual left apical pneumothorax. The patient is rotated. The cardiomediastinal silhouette is enlarged but stable. Suspect small bilateral pleural effusions with adjacent atelectasis/consolida tion. Stable osseous structures. IMPRESSION: Small residual left apical pneumothorax. Small bilateral pleural effusions with adjacent atelectasis/consolida tion. Preliminary Report was Dictated by a Resident Interpreted by: Paulo Breen MD Preliminary Report By: Geena Johnson Electronically signed By Paulo Breen MD Dictated Date: 07/12/2023 2:17:02 AM Prelim Date: 07/12/2023 2:18:37 AM Sign Date: 07/12/2023 3:21:09 AM Ordering Provider: ZAINAB MIRANDA [facility] ([place]) .Auto Diffon 07-11-2023 Basophil, Absolute 0.0 10 3/mcL Normal 0.0-0.3 [facility] ([place]) Comment on above: Performed By: #### A DIFF, CBC, ANEU, BMP, GFR #### [address] [address] Basophils/100 WBC (Bld) 0.2 % Normal 0.0-2.5 A [facility] ([place]) Comment on above: Performed By: #### A DIFF, CBC, ANEU, BMP, GFR #### [address] [address] Eosinophil, Absolute 0.1 10 3/mcL Normal 0.0-0.7 [facility] ([place]) Comment on above: Performed By: #### A DIFF, CBC, ANEU, BMP, GFR #### [address] [address] Eosinophils/100 WBC (Bld) 1.3 % Normal 0.0-6.0 [facility] ([place]) Comment on above: Performed By: #### A DIFF, CBC, ANEU, BMP, GFR #### [address] [address] Lymphocyte, Absolute 0.9 10 3/mcL Normal 0.9-4.3 [facility] ([place]) Comment on above: Performed By: #### A DIFF, CBC, ANEU, BMP, GFR #### [address] [address] Lymphocytes/100 WBC (Bld) 9.7 % Low 20.0-40.0 [facility] ([place]) Comment on above: Performed By: #### A DIFF, CBC, ANEU, BMP, GFR #### [address] [address] Monocyte, Absolute 1.0 10 3/mcL Normal 0.1-1.4 [facility] ([place]) Comment on above: Performed By: #### A DIFF, CBC, ANEU, BMP, GFR #### [address] [address] Monocytes/100 WBC (Bld) 10.5 % Normal 2.0-13.0 A [facility] ([place]) Comment on above: Performed By: #### A DIFF, CBC, ANEU, BMP, GFR #### [address] [address] Neutrophils/100 WBC (Bld) 78.3 % High 50.0-75.0 [facility] ([place]) Comment on above: Performed By: #### A DIFF, CBC, ANEU, BMP, GFR #### [address] [address] .GFRon 07-11-2023 GFR 34 ml/min/1.73sqm Normal [facility] ([place]) Comment on above: Result Comment: GFR Population mean for , Non- Americans Ages 20-29 = 116 mL/min/1.73 sq.m. Ages 30-39 = 107 mL/min/1.73 sq.m. Ages 40-49 = 99 mL/min/1.73 sq.m. Ages 50-59 = 93 mL/min/1.73 sq.m. Ages 60-69 = 85 mL/min/1.73 sq.m. Ages 70+ = 75 mL/min/1.73 sq.m. Chronic Kidney Disease: Less than 60 mL/min/1.73 square meters End Stage Renal Disease: Less than 15 mL/min/1.73 square meters Performed By: #### A DIFF, CBC, ANEU, BMP, GFR #### [address] [address] GFR Non- 28 ml/min/1.73sqm Normal [facility] ([place]) Comment on above: Result Comment: GFR Population mean for , Non- Americans Ages 20-29 = 116 mL/min/1.73 sq.m. Ages 30-39 = 107 mL/min/1.73 sq.m. Ages 40-49 = 99 mL/min/1.73 sq.m. Ages 50-59 = 93 mL/min/1.73 sq.m. Ages 60-69 = 85 mL/min/1.73 sq.m. Ages 70+ = 75 mL/min/1.73 sq.m. Chronic Kidney Disease: Less than 60 mL/min/1.73 square meters End Stage Renal Disease: Less than 15 mL/min/1.73 square meters Performed By: #### A DIFF, CBC, ANEU, BMP, GFR #### [address] [address] .NEUABSon 07-11-2023 Neutrophil, Absolute 7.2 10 3/mcL Normal 2.3-8.1 [facility] ([place]) Comment on above: Performed By: #### A DIFF, CBC, ANEU, BMP, GFR #### [address] [address] BGon 07-11-2023 Base excess Calc (Bld) [Moles/Vol] -2.8000 mmol/L Normal [facility] ([place]) Comment on above: Performed By: #### A DIFF, CBC, ANEU, BMP, GFR #### [address] [address] CO2 [Moles/Vol] 24.7 mmol/L Normal 22.0-30.0 [facility] ([place]) Comment on above: Performed By: #### A DIFF, CBC, ANEU, BMP, GFR #### [address] [address] HCO3 (Bld) [Moles/Vol] 23.3 mmol/L Normal 21.0-29.0 [facility] ([place]) Comment on above: Performed By: #### A DIFF, CBC, ANEU, BMP, GFR #### [address] [address] Oxygen (Bld) [Partial pressure] 65.8 mm[Hg] Low 74.0-108.0 [facility] ([place]) Comment on above: Performed By: #### A DIFF, CBC, ANEU, BMP, GFR #### [place] [id number] Oxygen saturation in Blood 92.5 % Normal 92.0-96.0 [facility] ([place]) Comment on above: Performed By: #### A DIFF, CBC, ANEU, BMP, GFR #### [address] [address] pCO2 45.9 mmHg Normal 32.0-46.0 [facility] ([place]) Comment on above: Performed By: #### A DIFF, CBC, ANEU, BMP, GFR #### [address] [address] pH (Bld) 7.324 [pH] Low 7.380-7.46 0 [facility] ([place]) Comment on above: Performed By: #### A DIFF, CBC, ANEU, BMP, GFR #### [address] [address] BMPon 07-11-2023 BUN/Creatinine Ratio 16.7 ratio Normal 10.0-22.0 [facility] ([place]) Comment on above: Performed By: #### A DIFF, CBC, ANEU, BMP, GFR #### [place] [id number] Calcium [Mass/Vol] 8.5 mg/dL Low 8.7-10.4 [facility] ([place]) Comment on above: Performed By: #### A DIFF, CBC, ANEU, BMP, GFR #### [place] [address] Chloride [Moles/Vol] 104 mmol/L Normal 98-110 [facility] ([place]) Comment on above: Performed By: #### A DIFF, CBC, ANEU, BMP, GFR #### [place] [address] CO2 [Moles/Vol] 29 mmol/L Normal 22-32 [facility] ([place]) Comment on above: Performed By: #### A DIFF, CBC, ANEU, BMP, GFR #### [place] [address] Creatinine [Mass/Vol] 1.74 mg/dL High 0.50-1.20 [facility] ([place]) Comment on above: Performed By: #### A DIFF, CBC, ANEU, BMP, GFR #### [place] [address] Electrolyte Balance 6.0 mEq/L Normal 4.0-15.0 [facility] ([place]) Comment on above: Performed By: #### A DIFF, CBC, ANEU, BMP, GFR #### [place] [address] Glucose [Mass/Vol] 160 mg/dL High 82-115 [facility] ([place]) Comment on above: Performed By: #### A DIFF, CBC, ANEU, BMP, GFR #### [address] [address] Potassium [Moles/Vol] 4.5 mmol/L Normal 3.5-5.0 [facility] ([place]) Comment on above: Performed By: #### A DIFF, CBC, ANEU, BMP, GFR #### [place] [address] Sodium [Moles/Vol] 139 mmol/L Normal 136-145 [facility] ([place]) Comment on above: Performed By: #### A DIFF, CBC, ANEU, BMP, GFR #### [place] [address] Urea nitrogen [Mass/Vol] 29.0 mg/dL High 8.0-22.0 [facility] ([place]) Comment on above: Performed By: #### A DIFF, CBC, ANEU, BMP, GFR #### [place] [address] CBCon 07-11-2023 Erythrocyte distribution width (RBC) [Ratio] 14.3 % Normal 11.5-15.5 [facility] ([place]) Comment on above: Performed By: #### A DIFF, CBC, ANEU, BMP, GFR #### [place] [address] Hematocrit (Bld) [Volume fraction] 36.4 % Normal 34.0-46.0 [facility] ([place]) Comment on above: Performed By: #### A DIFF, CBC, ANEU, BMP, GFR #### [place] [address] Hgb 11.9 G/dL Low 12.0-16.0 [facility] ([place]) Comment on above: Performed By: #### A DIFF, CBC, ANEU, BMP, GFR #### [place] [address] MCH (RBC) [Entitic mass] 29.9 pg Normal 27.0-33.0 [facility] ([place]) Comment on above: Performed By: #### A DIFF, CBC, ANEU, BMP, GFR #### [place] [address] MCHC 32.8 G/dL Normal 32.0-36.0 [facility] ([place]) Comment on above: Performed By: #### A DIFF, CBC, ANEU, BMP, GFR #### [place] [id number] MCV (RBC) [Entitic vol] 91.2 fL Normal 80.0-99.0 A [facility] ([place]) Comment on above: Performed By: #### A DIFF, CBC, ANEU, BMP, GFR #### [place] [id number] Platelet 234 10 3/mcL Normal 150-450 [facility] ([place]) Comment on above: Performed By: #### A DIFF, CBC, ANEU, BMP, GFR #### [place] [id number] Platelet mean volume (Bld) [Entitic vol] 8.8 fL Normal 6.6-10.5 [facility] ([place]) Comment on above: Performed By: #### A DIFF, CBC, ANEU, BMP, GFR #### [place] [address] RBC 3.99 10 6/mcL Low 4.10-5.30 [facility] ([place]) Comment on above: Performed By: #### A DIFF, CBC, ANEU, BMP, GFR #### [place] [id number] WBC 9.2 10 3/mcL Normal 4.5-10.8 [facility] ([place]) Comment on above: Performed By: #### A DIFF, CBC, ANEU, BMP, GFR #### [place] [address] XR CHEST 1 VIEWon 07-11-2023 XR CHEST 1 VIEW ORIGINAL EXAMINATION: ONE XRAY VIEW OF THE CHEST07/11/2023 4:49 am COMPARISON: 07/10/2023 HISTORY: ORDERING SYSTEM PROVIDED HISTORY: Reason for Exam: Abnormal Breath Sounds FINDINGS: The 2 left chest tubes are in stable position. There is a persistent small left apical pneumothorax. There is stable cardiomegaly. A small right pleural effusion is present. None there is bibasilar atelectasis. IMPRESSION: Stable left chest tubes with a small residual left pneumothorax. Small right pleural effusion and bibasilar atelectasis. Interpreted by: Pasquale Echeverria Preliminary Report By: Pasquale Echeverria Electronically signed By Pasquale Echeverria Dictated Date: 07/11/2023 1:30:03 PM Prelim Date: 07/11/2023 1:32:10 PM Sign Date: 07/11/2023 1:32:10 PM Ordering Provider: LIAT GARDINER Normal [facility]) APTTon 07-10-2023 aPTT Coag (Bld) [Time] 29.2 s Normal 25.0-35.0 [facility] ([place]) Comment on above: Result Comment: For Heparin anticoagulation therapy, the recommended therapeutic range is: 54-77 seconds (APTT Correlation with Anti-Xa therapeutic range of 0.3-0.7 units/ml). PLEASE REFERENCE THE PHARMACY PROTOCOL FOR DOSING. Performed By: #### K #### [place] [address] Heparin dose (APTT) Unknown Normal [facility] ([place]) Comment on above: Performed By: #### K #### [address] [address] FIBon 07-10-2023 Fibrinogen 676 mg/dL High 250-560 [facility] ([place]) Comment on above: Performed By: #### K #### [address] [address] GLU 07-10-2023 Glucose [Mass/Vol] 180 mg/dL High 82-115 [facility] ([place]) Comment on above: Performed By: #### RICARDO MOROCHO #### [address] [address] HHon 07-10-2023 Hematocrit (Bld) [Volume fraction] 41.0 % Normal 34.0-46.0 [facility] ([place]) Comment on above: Performed By: #### RICARDO MOROCHO #### [address] [address] Hgb 13.8 G/dL Normal 12.0-16.0 [facility] ([place]) Comment on above: Performed By: #### RICARDO MOROCHO #### [facility] [address] [place] [address] LABORATORYOrdered By: Sadi Hagen on 07-10-2023 aPTT Coag (Bld) [Time] 29.2 s Normal 25.0 - 35.0 seconds [facility] Comment on above: Interpretive Data: F or Heparin anticoagulation therapy, the recommended therapeutic range is: 54-77 seconds (APTT Correlation with Anti-Xa therapeutic range of 0.3-0.7 units/ml). PLEASE REFERENCE THE PHARMACY PROTOCOL FOR DOSING. Fibrinogen 676 mg/dL High 250 - 560 mg/dL HemNMub Heparin dose (APTT) Unknown (07/10/23 6:27 AM) Normal AH Coagulation S PT Coag (PPP) [Time] 10.3 s Normal 9.0 - 1 4.2 seconds [facility] Comment on above: Interpretive Data: E ffective 09/30/07, Protime results may be affected by some antibiotics (i.e. Ciprofloxacin, Azithromycin, Bactrim) which may potentiate the action of oral anticoagulants, with further increases in Protime/INR. PT International Ratio 0.9 ratio Invalid Interpretation Code [facility] Comment on above: Interpretive Data: T tim [employer] (CHEST, 1991, 102:[id number]) recommended therapeutic range for oral anticoagulant therapy is: LOW RISK: Prophylaxis of venous thrombosis INR: 2.0-3.0 Treatment of pulmonary embolism 2.0-3.0 Prevention of systemic embolism 2.0-3.0 HIGH RISK: Mechanical prosthetic valves 2.5-3.5 PLTon 07-10-2023 Platelet 255 10 3/mcL Normal 150-450 [facility] ([place]) Comment on above: Performed By: #### K #### [facility] [address] [place] [address] PROon 07-10-2023 INR Coag (PPP) [Relative time] 0.9 {INR} Normal [facility] ([place]) Comment on above: Result Comment: [employer] (CHEST, 1991, 102:[id number]) recommended therapeutic range for oral anticoagulant therapy is: LOW RISK: Prophylaxis of venous thrombosis INR: 2.0-3.0 Treatment of pulmonary embolism 2.0-3.0 Prevention of systemic embolism 2.0-3.0 HIGH RISK: Mechanical prosthetic valves 2.5-3.5 Performed By: #### K #### [address] [address] PT Coag (PPP) [Time] 10.3 s Normal 9.0-14.2 [facility] ([place]) Comment on above: Result Comment: Effe ctive 09/30/07, Protime results may be affected by some antibiotics (i.e. Ciprofloxacin, Azithromycin, Bactrim) which may potentiate the action of oral anticoagulants, with further increases in Protime/INR. Performed By: #### K #### [facility] [address] [place] [address] XR CHEST 1 VIEWon 07-10-2023 XR CHEST 1 VIEW ORIGINAL EXAMINATION: ONE XRAY VIEW OF THE CHEST07/10/2023 11:44 am CHEST ONE VIEW AP/PA COMPARISON: 07/03/2023 HISTORY: ORDERING SYSTEM PROVIDED HISTORY: Reason for Exam: Abnormal breath sounds FINDINGS: There are too large bore left-sided chest tubes in place with a small residual pneumothorax and some and adjacent airspace opacity. There is hypoventilatory change in the right lower lung. Suspect a small amount of left-sided pleural fluid. None the heart and mediastinal silhouette are unremarkable given technique. IMPRESSION: 2 large bore left-sided chest tube, there is a small left pneumothorax and there may be some small residual left pleural effusion. Interpreted by: Farrah Wong MD Preliminary Report By: Farrah Wong MD Electronically signed By Farrah Wong MD Dictated Date: 07/10/2023 12:02:44 PM Prelim Date: 07/10/2023 12:04:44 PM Sign Date: 07/10/2023 12:04:44 PM Ordering Provider: LIAT Pollard [facility] ([place]) XR CHEST 2 VIEWSon XR CHEST 2 VIEWS ORIGINAL HISTORY: Recurrent pleural effusion COMPARISON: No FINDINGS: There is a moderate to large left effusion. There are mild associated streaky airspace opacities. The right lung is clear. The pulmonary vasculature is unremarkable in appearance. IMPRESSION: Left effusion; the right lung is clear. Interpreted by: Jose Solo MD Preliminary Report By: Jose Solo MD Electronically signed By Jose Solo MD Dictated Date: 07/04/2023 11:44:20 AM Prelim Date: 07/04/2023 11:45:04 AM Sign Date: 07/04/2023 11:45:04 AM Ordering Provider: LIAT Pollard [facility] ([place]) .Auto Diffon 07-03-2023 Basophil, Absolute 0.1 10 3/mcL Normal 0.0-0.3 [facility] ([place]) Comment on above: Performed By: #### Artemio IVEY, #### [address] [address] Basophils/100 WBC (Bld) 0.8 % Normal 0.0-2.5 A [facility] ([place]) Comment on above: Performed By: #### Artemio IVEY, #### [address] [address] Eosinophil, Absolute 0.2 10 3/mcL Normal 0.0-0.7 [facility] ([place]) Comment on above: Performed By: #### Artemio IVEY, #### [address] [address] Eosinophils/100 WBC (Bld) 3.1 % Normal 0.0-6.0 [facility] ([place]) Comment on above: Performed By: #### Artemio IVEY, #### [address] [address] Lymphocyte, Absolute 0.8 10 3/mcL Low 0.9-4.3 [facility] ([place]) Comment on above: Performed By: #### Artemio IVEY, #### [address] [address] Lymphocytes/100 WBC (Bld) 11.3 % Low 20.0-40.0 [facility] ([place]) Comment on above: Performed By: #### Artemio IVEY, #### [address] [address] Monocyte, Absolute 0.6 10 3/mcL Normal 0.1-1.4 [facility] ([place]) Comment on above: Performed By: #### Artemio IVEY, #### [address] [address] Monocytes/100 WBC (Bld) 8.2 % Normal 2.0-13.0 A [facility] ([place]) Comment on above: Performed By: #### Artemio IVEY, RICARDO #### [address] [address] Neutrophils/100 WBC (Bld) 76.6 % High 50.0-75.0 [facility] ([place]) Comment on above: Performed By: #### Artemio IVEY, RICARDO #### [address] [address] .GFRon 07-03-2023 GFR 38 ml/min/1.73sqm Normal [facility] ([place]) Comment on above: Result Comment: GFR Population mean for , Non- Americans Ages 20-29 = 116 mL/min/1.73 sq.m. Ages 30-39 = 107 mL/min/1.73 sq.m. Ages 40-49 = 99 mL/min/1.73 sq.m. Ages 50-59 = 93 mL/min/1.73 sq.m. Ages 60-69 = 85 mL/min/1.73 sq.m. Ages 70+ = 75 mL/min/1.73 sq.m. Chronic Kidney Disease: Less than 60 mL/min/1.73 square meters End Stage Renal Disease: Less than 15 mL/min/1.73 square meters Performed By: #### Artemio IVEY, RICARDO #### [address] [address] GFR Non- 31 ml/min/1.73sqm Normal [facility] ([place]) Comment on above: Result Comment: GFR Population mean for , Non- Americans Ages 20-29 = 116 mL/min/1.73 sq.m. Ages 30-39 = 107 mL/min/1.73 sq.m. Ages 40-49 = 99 mL/min/1.73 sq.m. Ages 50-59 = 93 mL/min/1.73 sq.m. Ages 60-69 = 85 mL/min/1.73 sq.m. Ages 70+ = 75 mL/min/1.73 sq.m. Chronic Kidney Disease: Less than 60 mL/min/1.73 square meters End Stage Renal Disease: Less than 15 mL/min/1.73 square meters Performed By: #### RICARDO MOROCHO #### [place] [id number] .NEUABSon 07-03-2023 Neutrophil, Absolute 5.4 10 3/mcL Normal 2.3-8.1 [facility] ([place]) Comment on above: Performed By: #### RICARDO MOROCHO #### [place] [address] ABO/Rh (Gel)on 07-03-2023 ABO/Rh Interp Negative Invalid Interpretation Code [facility] ([place]) Comment on above: Performed By: #### K #### [place] [address] ABS (Gel)on 07-03-2023 ABSC Interp (Gel) Negative Normal [facility] ([place]) Comment on above: Performed By: #### K #### [place] [address] APTTon 07-03-2023 aPTT Coag (Bld) [Time] 29.6 s Normal 25.0-35.0 [facility] ([place]) Comment on above: Result Comment: For Heparin anticoagulation therapy, the recommended therapeutic range is: 54-77 seconds (APTT Correlation with Anti-Xa therapeutic range of 0.3-0.7 units/ml). PLEASE REFERENCE THE PHARMACY PROTOCOL FOR DOSING. Performed By: #### RICARDO MOROCHO #### [place] [address] Heparin dose (APTT) Unknown Normal [facility] ([place]) Comment on above: Performed By: #### RICARDO MOROCHO #### [place] [id number] CBCon 07-03-2023 Erythrocyte distribution width (RBC) [Ratio] 14.0 % Normal 11.5-15.5 [facility] ([place]) Comment on above: Performed By: #### RICARDO MOROCHO #### [place] [address] Hematocrit (Bld) [Volume fraction] 38.0 % Normal 34.0-46.0 [facility] ([place]) Comment on above: Performed By: #### Artemio IVEY, #### [address] [address] Hgb 12.7 G/dL Normal 12.0-16.0 [facility] ([place]) Comment on above: Performed By: #### Artemio IVEY, HH #### [address] [address] MCH (RBC) [Entitic mass] 30.3 pg Normal 27.0-33.0 [facility] ([place]) Comment on above: Performed By: #### Artemio IVEY, HH #### [place] [address] MCHC 33.5 G/dL Normal 32.0-36.0 [facility] ([place]) Comment on above: Performed By: #### Artemio IVEY, #### [place] [address] MCV (RBC) [Entitic vol] 90.5 fL Normal 80.0-99.0 A [facility] ([place]) Comment on above: Performed By: #### Artemio IVEY, #### [place] [id number] Platelet 252 10 3/mcL Normal 150-450 [facility] ([place]) Comment on above: Performed By: #### Artemio IVEY, #### [place] [address] Platelet mean volume (Bld) [Entitic vol] 8.5 fL Normal 6.6-10.5 [facility] ([place]) Comment on above: Performed By: #### Artemio IVEY, HH #### [place] [id number] RBC 4.20 10 6/mcL Normal 4.10-5.30 [facility] ([place]) Comment on above: Performed By: #### Artemio IVEY, HH #### [place] [id number] WBC 7.0 10 3/mcL Normal 4.5-10.8 [facility] ([place]) Comment on above: Performed By: #### Artemio IVEY, #### [address] [address] CMPon 07-03-2023 Albumin Level 2.8 G/dL Low 3.2-4.8 [facility] ([place]) Comment on above: Performed By: #### Artemio IVEY, #### [address] [address] Albumin/Globulin [Mass ratio] 1.0 {ratio} Normal 0.9-1.6 [facility] ([place]) Comment on above: Performed By: #### Artemio IVEY, #### [address] [address] ALP [Catalytic activity/Vol] 77 U/L Normal 38-126 [facility] ([place]) Comment on above: Performed By: #### Artemio IVEY, #### [place] [id number] ALT [Catalytic activity/Vol] 10 U/L Normal 10-49 [facility] ([place]) Comment on above: Performed By: #### Artemio IVEY, #### [address] [address] AST [Catalytic activity/Vol] 11 U/L Normal 8-34 [facility] ([place]) Comment on above: Performed By: #### Artemio IVEY, #### [place] [id number] Bili Total 0.30 mg/dL Normal 0.20-1.20 [facility] ([place]) Comment on above: Result Comment: Use of this assay is not recommended for patients undergoing treatment with eltrombopag due to the potential for falsely elevated results. Performed By: #### Artemio IVEY, #### [place] [id number] BUN/Creatinine Ratio 20.4 ratio Normal 10.0-22.0 [facility] ([place]) Comment on above: Performed By: #### Artemio IVEY, #### [address] [address] Calcium [Mass/Vol] 8.8 mg/dL Normal 8.7-10.4 [facility] ([place]) Comment on above: Performed By: #### Artemio IVEY, #### [address] [address] Chloride [Moles/Vol] 106 mmol/L Normal 98-110 [facility] ([place]) Comment on above: Performed By: #### Artemio IVEY, HH #### [address] [address] CO2 [Moles/Vol] 30 mmol/L Normal 22-32 [facility] ([place]) Comment on above: Performed By: #### Artemio IVEY, #### [address] [address] Creatinine [Mass/Vol] 1.57 mg/dL High 0.50-1.20 [facility] ([place]) Comment on above: Performed By: #### Artemio IVEY, #### [address] [address] Electrolyte Balance 6.0 mEq/L Normal 4.0-15.0 [facility] ([place]) Comment on above: Performed By: #### Artemio IVEY, #### [address] [address] Globulin 2.7 G/dL Normal 1.5-3.8 [facility] ([place]) Comment on above: Performed By: #### Artemio IVEY, #### [address] [address] Glucose [Mass/Vol] 172 mg/dL High 82-115 [facility] ([place]) Comment on above: Performed By: #### Artemio IVEY, #### [address] [address] Potassium [Moles/Vol] 4.0 mmol/L Normal 3.5-5.0 [facility] ([place]) Comment on above: Performed By: #### Artemio IVEY, HH #### [address] [address] Sodium [Moles/Vol] 142 mmol/L Normal 136-145 [facility] ([place]) Comment on above: Performed By: #### Artemio IVEY, HH #### [address] [address] Total Protein 5.5 G/dL Low 5.7-8.2 [facility] ([place]) Comment on above: Result Comment: No te - New Reference Range in effect 19 Performed By: #### Artemio IVEY #### [address] [address] Urea nitrogen [Mass/Vol] 32.0 mg/dL High 8.0-22.0 [facility] ([place]) Comment on above: Performed By: #### Artemio IVEY, #### [address] [address] FIBon 07-03-2023 Fibrinogen 619 mg/dL High 250-560 [facility] ([place]) Comment on above: Performed By: #### Artemio IVEY #### [address] [address] LABORATORYOrdered By: Trenton Sheldon on 07-03-2023 ABO and Rh group Nom (Bld) Blood group A Rh(D) negative Invalid Interpretation Code AH BB Auto SS Blood group antibody screen Ql Negative ABSC (07/03/23 12:49 PM) Normal AH BB Auto SS LABORATORYOrdered By: SYSTEM SYSTEM on 07-03-2023 Albumin BCP dye [Mass/Vol] 2.8 G/dL Low 3 .2 - 4.8 G/dL AH ADM SS Albumin/Globulin [Mass ratio] 1.0 {ratio} Normal 0.9 - 1.6 ratio AH ADM SS ALP [Catalytic activity/Vol] 77 U/L Normal 38 - 126 U/L AH ADM SS ALT No additional P-5'-P [Catalytic activity/Vol] 10 U/L Normal 10 - 49 U/L AH ADM SS AST [Catalytic activity/Vol] 11 U/L Normal 8 - 34 U/L AH ADM SS Basophils (Bld) [#/Vol] 0.1 103/mcL Normal 0.0 - 0.3 10^3/mcL AH Workflow SS Basophils/100 WBC (Bld) 0.8 % Normal 0.0 - 2.5 % AH Workflow SS Bilirubin [Mass/Vol] 0.30 mg/dL Normal 0.20 - 1.20 mg/dL AH ADM SS Comment on above: Interpretive Data: U se of this assay is not recommended for patients undergoing treatment with eltrombopag due to the potential for falsely elevated results. Calcium [Mass/Vol] 8.8 mg/dL Normal 8.7 - 10. 4 mg/dL ADM SS Chloride [Moles/Vol] 106 mmol/L Normal 98 - 11 0 mEq/L ADM SS CO2 [Moles/Vol] 30 mmol/L Normal 22 - 32 mEq/L ADM SS Creatinine [Mass/Vol] 1.57 mg/dL High 0.50 - 1.20 mg/dL ADM SS Electrolyte Balance 6.0 mEq/L Normal 4.0 - 15 .0 mEq/L ADM SS Eosinophils (Bld) [#/Vol] 0.2 103/mcL Normal 0. 0 - 0.7 10^3/mcL Workflow SS Eosinophils/100 WBC (Bld) 3.1 % Normal 0. 0 - 6.0 % Workflow SS Erythrocyte distribution width (RBC) [Ratio] 14.0 % Normal 11.5 - 15.5 % Workflow SS GFR/1.73 sq M.predicted among blacks MDRD (S/P/Bld) [Vol rate/Area] 38 ml/min/1.73sqm Invalid Interpretation Code [employer] [facility] S Comment on above: Interpretive Data: GFR Population mean for , Non- Americans Ages 20-29 = 116 mL/min/1.73 sq.m. Ages 30-39 = 107 mL/min/1.73 sq.m. Ages 40-49 = 99 mL/min/1.73 sq.m. Ages 50-59 = 93 mL/min/1.73 sq.m. Ages 60-69 = 85 mL/min/1.73 sq.m. Ages 70+ = 75 mL/min/1.73 sq.m. Chronic Kidney Disease: Less than 60 mL/min/1.73 square meters End Stage Renal Disease: Less than 15 mL/min/1.73 square meters GFR/1.73 sq M.predicted among non-blacks MDRD (S/P/Bld) [Vol rate/Area] 31 ml/min/1.73sqm Invalid Interpretation Code [employer] [facility] S Comment on above: Interpretive Data: GFR Population mean for , Non- Americans Ages 20-29 = 116 mL/min/1.73 sq.m. Ages 30-39 = 107 mL/min/1.73 sq.m. Ages 40-49 = 99 mL/min/1.73 sq.m. Ages 50-59 = 93 mL/min/1.73 sq.m. Ages 60-69 = 85 mL/min/1.73 sq.m. Ages 70+ = 75 mL/min/1.73 sq.m. Chronic Kidney Disease: Less than 60 mL/min/1.73 square meters End Stage Renal Disease: Less than 15 mL/min/1.73 square meters Globulin 2.7 G/dL Normal 1.5 - 3.8 G/dL AH ADM SS Glucose [Mass/Vol] 172 mg/dL High 82 - 115 mg/dL AH ADM SS Hematocrit (Bld) [Volume fraction] 38.0 % Normal 34.0 - 46.0 % AH Workflow SS Hemoglobin (Bld) [Mass/Vol] 12.7 G/dL Normal 12.0 - 16.0 G/dL AH Workflow SS Lymphocytes (Bld) [#/Vol] 0.8 103/mcL Low 0. 9 - 4.3 10^3/mcL AH Workflow SS Lymphocytes/100 WBC (Bld) 11.3 % Low 20 .0 - 40.0 % AH Workflow SS MCH (RBC) [Entitic mass] 30.3 pg Normal 27. 0 - 33.0 pg AH Workflow SS MCHC 33.5 G/dL Normal 32.0 - 36.0 G/dL AH Workflow SS MCV (RBC) [Entitic vol] 90.5 fL Normal 80.0 - 99.0 fL AH Workflow SS Monocytes (Bld) [#/Vol] 0.6 103/mcL Normal 0.1 - 1.4 10^3/mcL AH Workflow SS Monocytes/100 WBC (Bld) 8.2 % Normal 2.0 - 13.0 % AH Workflow SS Neutrophils (Bld) [#/Vol] 5.4 103/mcL Normal 2. 3 - 8.1 10^3/mcL AH Workflow SS Neutrophils/100 WBC (Bld) 76.6 % High 50 .0 - 75.0 % AH Workflow SS Platelet mean volume (Bld) [Entitic vol] 8.5 fL Normal 6.6 - 10.5 fL AH Workflow SS Platelets (Bld) [#/Vol] 252 103/mcL Normal 150 - 450 10^3/mcL AH Workflow SS Potassium [Moles/Vol] 4.0 mmol/L Normal 3.5 - 5.0 mEq/L AH ADM SS Protein [Mass/Vol] 5.5 G/dL Low 5.7 - 8.2 G/dL AH ADM SS Comment on above: Interpretive Data: * *Note - New Reference Range in effect 19 RBC (Bld) [#/Vol] 4.20 106/mcL Normal 4.10 - 5.30 10^6/mcL AH Workflow SS Sodium [Moles/Vol] 142 mmol/L Normal 136 - 145 mEq/L AH ADM SS Urea nitrogen [Mass/Vol] 32.0 mg/dL High 8.0 - 22.0 mg/dL AH ADM SS Urea nitrogen/Creatinine [Mass ratio] 20.4 ratio Normal 10.0 - 22.0 ratio AH ADM SS WBC (Bld) [#/Vol] 7.0 103/mcL Normal 4.5 - 10.8 10^3/mcL AH Workflow SS LABORATORYOrdered By: Bernadine Costa on 07-03-2023 Appearance (U) Clear (07/03/23 12:47 PM) Normal Clear AH Auto Urine SS Bacteria LM.HPF (Urine sed) [#/Area] 4 /[HPF] Invalid Interpretation Code Negative AH Auto Urine SS Bilirubin Ql (U) Negative (07/03/23 12:47 PM) Normal Neg-Trace AH Auto Urine SS Color (U) Yellow (07/03/23 12:47 PM) Normal AH Auto Urine SS Glucose Test strip (U) [Mass/Vol] Negative Normal Negative AH Auto Urine SS Hemoglobin Auto test strip (U) [Mass/Vol] Negative (07/03/23 12:47 PM) Normal Neg-Trace AH Auto Urine SS Ketones Ql (U) Trace mg/dL Normal Neg-Trace AH Auto Urine SS UA Leuk Est Negative (07/03/23 12:47 PM) Normal Negative AH Auto Urine SS UA Mucous 2+ /HPF Normal AH Auto Urine SS UA Nitrite Positive *ABN* (07/03/23 12:47 PM) Invalid Interpretation Code Negative AH Auto Urine SS UA pH 5.5 (07/03/23 12:47 PM) Normal 5.0 - 8.0 AH Auto Urine SS UA Protein 100 mg/dL Invalid Interpretation Code Negative AH Auto Urine SS UA RBC Negative Normal 0-2 Auto Urine SS UA Spec Grav 1.025 (07/03/23 12:47 PM) Normal 1.006-1.02 9 Auto Urine SS UA Specimen Type Clean Catch (07/03/23 12:47 PM) Normal Auto Urine SS UA Squam Epithelial 5-10 /HPF Normal 0-20 AH Au to Urine SS UA Urobilinogen 1.0 E.U./dL Normal 0.2-1.0 Auto Urine SS WBC LM.HPF (Urine sed) [#/Area] 3-5 /HPF Normal 0-5 Auto Urine SS LABORATORYOrdered By: Issac Vargas on 07-03-2023 aPTT Coag (Bld) [Time] 29.6 s Normal 25.0 - 35.0 seconds [facility] Comment on above: Interpretive Data: F or Heparin anticoagulation therapy, the recommended therapeutic range is: 54-77 seconds (APTT Correlation with Anti-Xa therapeutic range of 0.3-0.7 units/ml). PLEASE REFERENCE THE PHARMACY PROTOCOL FOR DOSING. Fibrinogen 619 mg/dL High 250 - 560 mg/dL [facility] Heparin dose (APTT) Unknown (07/03/23 12:47 PM) Normal Coagulation S PT Coag (PPP) [Time] 10.8 s Normal 9.0 - 1 4.2 seconds [facility] Comment on above: Interpretive Data: E ffective 09/30/07, Protime results may be affected by some antibiotics (i.e. Ciprofloxacin, Azithromycin, Bactrim) which may potentiate the action of oral anticoagulants, with further increases in Protime/INR. PT International Ratio 1.0 ratio Invalid Interpretation Code [facility] Comment on above: Interpretive Data: [employer] dumont [employer] (CHEST, 1991, [id number]) recommended therapeutic range for oral anticoagulant therapy is: LOW RISK: Prophylaxis of venous thrombosis INR: 2.0-3.0 Treatment of pulmonary embolism 2.0-3.0 Prevention of systemic embolism 2.0-3.0 HIGH RISK: Mechanical prosthetic valves 2.5-3.5 PROon 07-03-2023 INR Coag (PPP) [Relative time] 1.0 {INR} Normal [facility] ([place]) Comment on above: Result Comment: [employer] (CHEST, 1991, [id number]) recommended therapeutic range for oral anticoagulant therapy is: LOW RISK: Prophylaxis of venous thrombosis INR: 2.0-3.0 Treatment of pulmonary embolism 2.0-3.0 Prevention of systemic embolism 2.0-3.0 HIGH RISK: Mechanical prosthetic valves 2.5-3.5 Performed By: #### RICARDO MOROCHO #### [address] [id number] PT Coag (PPP) [Time] 10.8 s Normal 9.0-14.2 [facility] ([place]) Comment on above: Result Comment: Effe ctive 09/30/07, Protime results may be affected by some antibiotics (i.e. Ciprofloxacin, Azithromycin, Bactrim) which may potentiate the action of oral anticoagulants, with further increases in Protime/INR. Performed By: #### RICARDO MOROCHO #### [place] [id number] UAon 07-03-2023 Color (U) Yellow Normal [facility] ([place]) Comment on above: Performed By: #### A DIFF, CBC, ANEU, BMP, GFR #### [place] [id number] Glucose (U) [Mass/Vol] Negative Normal Negative [facility] ([place]) Comment on above: Performed By: #### A DIFF, CBC, ANEU, BMP, GFR #### [place] [id number] Ketones Ql (U) Trace Normal Neg-Trace [facility] ([place]) Comment on above: Performed By: #### A DIFF, CBC, ANEU, BMP, GFR #### [address] [address] UA Appear Clear Normal Clear [facility] ([place]) Comment on above: Performed By: #### A DIFF, CBC, ANEU, BMP, GFR #### [address] [address] UA Blood Negative Normal Neg-Trace [facility] ([place]) Comment on above: Performed By: #### A DIFF, CBC, ANEU, BMP, GFR #### [address] [address] UA Leuk Est Negative Normal Negative [facility] ([place]) Comment on above: Performed By: #### A DIFF, CBC, ANEU, BMP, GFR #### [address] [address] UA Nitrite Positive Abnormal Negative [facility] ([place]) Comment on above: Performed By: #### A DIFF, CBC, ANEU, BMP, GFR #### [place] [address] UA pH 5.5 Normal 5.0 - 8.0 [facility] ([place]) Comment on above: Performed By: #### A DIFF, CBC, ANEU, BMP, GFR #### [place] [address] UA Protein 100 mg/dL Abnormal Negative [facility] ([place]) Comment on above: Performed By: #### A DIFF, CBC, ANEU, BMP, GFR #### [place] [address] UA Spec Grav 1.025 Normal 1.006-1.02 9 [facility] ([place]) Comment on above: Performed By: #### A DIFF, CBC, ANEU, BMP, GFR #### [place] [address] UA Specimen Type Clean Catch Normal [facility] ([place]) Comment on above: Performed By: #### A DIFF, CBC, ANEU, BMP, GFR #### [place] [id number] UA Urobilinogen 1.0 E.U./dL Normal 0.2-1.0 [facility] ([place]) Comment on above: Performed By: #### A DIFF, CBC, ANEU, BMP, GFR #### [place] [address] Urobilinogen (U) [Mass/Vol] Negative Normal Neg-Trac e [facility] ([place]) Comment on above: Performed By: #### A DIFF, CBC, ANEU, BMP, GFR #### [place] [address] UAMICon 04-17-2024 UA Bacteria 4+ /hpf Abnormal Negative [facility] ([place]) Comment on above: Performed By: #### A DIFF, CBC, ANEU, BMP, GFR #### [facility] [address] [place] [address] UA Mucous 2+ /hpf Normal [facility] ([place]) Comment on above: Performed By: #### A DIFF, CBC, ANEU, BMP, GFR #### [facility] [address] [place] [address] UA RBC Negative Normal 0-2 [facility] ([place]) Comment on above: Performed By: #### A DIFF, CBC, ANEU, BMP, GFR #### [address] [address] UA Squam Epithelial 5-10 Normal 0-20 [facility] ([place]) Comment on above: Performed By: #### A DIFF, CBC, ANEU, BMP, GFR #### [address] [address] UA WBC 3-5 Normal 0-5 [facility] ([place]) Comment on above: Performed By: #### A DIFF, CBC, ANEU, BMP, GFR #### [address] [address] Basophil percentageOrdered B y: Zenobia Marie on 06-24-2023 Basophil percentage 3.6 mg/dL 2.5-4.9 [facility] Chloride [Moles/Vol] 101 mmol/L 98-107 [facility] Glucose [Mass/Vol] 219 mg/dL 74-[address] [facility] Comment on above: Glucose result great er than or equal to 200 mg/dLsuggests DIABETES MELLITUS per A.D.A. criteria. Potassium [Moles/Vol] 3.8 mmol/L 3.5-5.1 [facility] Sodium [Moles/Vol] 139 mmol/L 136-[address] [facility] Laboratory - Chemistry and C hemistry - challengeOrdered By: Zenobia Marie on 06-24-2023 CO2 [Moles/Vol] 32.0 mmol/L 21.0-32.0 [facility] Urea nitrogen/Creatinine [Mass ratio] 18.2 mg/mg 10-20 [facility] No Panel InformationOrdered By: Zenobia Marie on 06-24-2023 Estimated GFR (MDRD) Amer 30 mL/min >60 [facility] Comment on above: GFR Calc Estimated GFR (MDRD) Non-Af Amer 25 mL/min >60 [facility] Comment on above: Non- GFR Calc Serum or plasma calcium bob urement (mass/volume)Ordered By: Zenobia Marie on 06-24-2023 Calcium [Mass/Vol] 8.8 mg/dL 8.5-10.[address] [facility] Serum or plasma creatinine m easurement (mass/volume)Ordered By: Zenobia Marie on 06-24-2023 Creatinine [Mass/Vol] 2.03 mg/dL 0.55-1.02 [facility] Comment on above: The validity of the calculated GFR & GFRAA in patients over 70 years has not been determined. Clinical correlation is essential. Serum or plasma urea nitroge n measurement (mass/volume)Ordered By: Zenobia Marie on 06-24-2023 Urea nitrogen [Mass/Vol] 37 mg/dL 7-18 [facility] Thin prep Papanicolaou smear with manual screeningOrdered By: Zenobia Marie on 06-24-2023 Thin prep Papanicolaou smear with manual screening 2.8 g/dL 3.2-5.0 [facility] Basophil percentageOrdered B y: Mitali Hagen on 05-24-2023 Basophil percentage 221 mg/dL 74-106 [facility] Basophil percentage 140 mmol/L 136-145 [facility] Basophil percentage 4.2 mmol/L 3.5-5.1 [facility] Basophil percentage 103 mmol/L 98-107 [facility] Chloride [Moles/Vol] 103 mmol/L 98-107 [facility] Glucose [Mass/Vol] 221 mg/dL 74-[address] [facility] Comment on above: Glucose result great er than or equal to 200 mg/dLsuggests DIABETES MELLITUS per A.D.A. criteria. Potassium [Moles/Vol] 4.2 mmol/L 3.5-5.1 [facility] Sodium [Moles/Vol] 140 mmol/L 136-[address] [facility] Laboratory - Chemistry and C hemistry - challengeOrdered By: Mitali Hagen on 05-24-2023 CO2 [Moles/Vol] 33.0 mmol/L 21.0-32.0 [facility] Urea nitrogen/Creatinine [Mass ratio] 23.8 mg/mg 10- [facility] No Panel InformationOrdered By: Mitali Hagen on 05-24-2023 Estimated GFR (MDRD) Amer 40 mL/min >60 [facility] Comment on above: GFR Calc Estimated GFR (MDRD) Non-Af Amer 33 mL/min >60 [facility] Comment on above: Non- GFR Calc 33 mL/min >60 [facility] 40 mL/min >60 [facility] 23.8 RATIO 10 [facility] 33.0 mmol/L 21.0-32.0 [facility] Serum or plasma calcium bob urement (mass/volume)Ordered By: Mitali Hagen on 05-24-2023 Calcium [Mass/Vol] 8.9 mg/dL 8.5-10.[address] [facility] Serum or plasma creatinine m easurement (mass/volume)Ordered By: Mitali Hagen on 05-24-2023 Creatinine [Mass/Vol] 1.60 mg/dL 0.55-1.02 [facility] Comment on above: The validity of the calculated GFR & GFRAA in patients over 70 years has not been determined. Clinical correlation is essential. Serum or plasma urea nitroge n measurement (mass/volume)Ordered By: Mitali Hagen on 05-24-2023 Urea nitrogen [Mass/Vol] 38 mg/dL 7-18 [facility] Thin prep Papanicolaou smear with manual screeningOrdered By: Mitali Hagen on 05-24-2023 Thin prep Papanicolaou smear with manual screening 4 5-15 [facility] Absolute lymphocyte countOrd ered By: Alexy Douglas on 04-24-2023 Lymphocytes Auto (Unsp spec) [#/Vol] 0.93 10*3/uL 0.83-4.51 [facility] Automated lymphocyte count a s percentage of total leukocytesOrdered By: Alexy Douglas on 04-24-2023 Lymphocytes/100 WBC Auto (Unsp spec) 12.4 % 19-41 [facility] Basophil percentageOrdered B y: Alexy Douglas on 04-24-2023 Basophil percentage 11.4 g/dL 12.0-15.0 [facility] Basophil percentage 241 mg/dL 74-106 [facility] Basophil percentage 6.2 g/dL 6.4-8.2 [facility] Basophil percentage 0.30 mg/dL 0.20-1.00 [facility] Basophil percentage 142 mmol/L 136-145 [facility] Basophil percentage 4.3 mmol/L 3.5-5.1 [facility] Basophil percentage 109 mmol/L 98-107 [facility] Basophils (Bld) [#/Vol] 7.5 10*3/uL 4.4-11.0 [facility] Basophils (Bld) [#/Vol] 5.6 10*3/uL 2.0-7.7 [facility] Basophils/100 WBC (Bld) 74.7 % 47-70 [facility] Basophils/100 WBC (Bld) 8.3 % 0-10 [facility] Basophils/100 WBC (Bld) 2.4 % 0-5 [facility] Basophils/100 WBC (Bld) 0.7 % 0-1 [facility] Bilirubin [Mass/Vol] 0.30 mg/dL 0.20-1.00 [facility] Comment on above: For patients on eltr ombopag therapy, use of Dimension [place] TBIL is not recommended. Chloride [Moles/Vol] 109 mmol/L 98-107 [facility] Eosinophils/100 WBC (Bld) 2.4 % 0-5 [facility] Glucose [Mass/Vol] 241 mg/dL 74-[address] [facility] Comment on above: Glucose result great er than or equal to 200 mg/dLsuggests DIABETES MELLITUS per A.D.A. criteria. Hemoglobin (Bld) [Mass/Vol] 11.4 g/dL 12.0-15. 0 [facility] Monocytes/100 WBC (Bld) 8.3 % 0-10 [facility] Neutrophils (Bld) [#/Vol] 5.6 10*3/uL 2.0-7.7 [facility] Neutrophils/100 WBC (Bld) 74.7 % 47-70 [facility] Potassium [Moles/Vol] 4.3 mmol/L 3.5-5.1 [facility] Protein [Mass/Vol] 6.2 g/dL 6.4-8.[address] [facility] Sodium [Moles/Vol] 142 mmol/L 136-[address] [facility] WBC (Bld) [#/Vol] 7.5 10*3/uL 4.4-11.[address] [facility] Determination of erythrocyte mean corpuscular volume (MCV)Ordered By: Alexy Douglas on 04-24-2023 MCV (RBC) [Entitic vol] 93.3 fL 81-99 [facility] Erythrocyte distribution wid th ratioOrdered By: Alexy Douglas on 04-24-2023 Erythrocyte distribution width (RBC) [Ratio] 14.0 % 11.6-14.6 [facility] Erythrocyte distribution wid th standard deviationOrdered By: Alexy Douglas on 04-24-2023 Erythrocyte distribution width (RBC) [Entitic vol] 46.9 fL 35.1-43.[address] [facility] Hematocrit Auto (Bld) [Volum e fraction]Ordered By: Alexy Douglas on 04-24-2023 Hematocrit (Bld) [Volume fraction] 36.1 % 37-47 [facility] Immature granulocytes/100 WB C Auto (Bld)Ordered By: Alexy Douglas on 04-24-2023 Immature granulocytes/100 WBC (Bld) 1.500 % 0.0-0.9 [facility] Comment on above: IG% - Immature Granu locytes (promyelocytes, myelocytes and metamyelocytes) > 1% indicates that a LEFT SHIFT is Present. Laboratory - Chemistry and C hemistry - challengeOrdered By: Alexy Douglas on 04-24-2023 Albumin/Globulin [Mass ratio] 0.7 {ratio} 0.9-2.4 [facility] ALP [Catalytic activity/Vol] 81 U/L 45-117 [facility] ALT [Catalytic activity/Vol] 19 U/L 13-56 [facility] CO2 [Moles/Vol] 31.0 mmol/L 21.0-32.0 [facility] Globulin (S) [Mass/Vol] 3.6 g/dL 2.2-4.2 [facility] Urea nitrogen/Creatinine [Mass ratio] 18.5 mg/mg 10-20 [facility] Laboratory - Hematology and Cell countsOrdered By: Alexy Douglas on 04-24-2023 MCH (RBC) [Entitic mass] 29.5 pg 27.0-32.0 [facility] MCHC (RBC) [Mass/Vol] 31.6 g/dL 32-36 [facility] Nucleated RBC/100 WBC (Bld) [Ratio] 0 % 0-5 [facility] Platelet mean volume (Bld) [Entitic vol] 10.4 fL 6.2-12.0 [facility] Platelets (Bld) [#/Vol] 243 10*3/uL 150-450 [facility] No Panel InformationOrdered By: Alexy Douglas on 04-24-2023 Estimated GFR (MDRD) Amer 42 mL/min >60 [facility] Comment on above: GFR Calc Estimated GFR (MDRD) Non-Af Amer 35 mL/min >60 [facility] Comment on above: Non- GFR Calc Vitamin D 25-Hydroxy 35.0 ng/mL [facility] Comment on above: Vitamin D 25(OH) Sta tus Range Deficiency <20 ng/mL (50nmol/L) Insufficiency 20 - 30 ng/mL (50 - 75 nmol/L) Sufficiency 30 - 100 ng/mL (75 - 250 nmol/L) Toxicity >100 ng/mL (>250 nmol/L) 29.5 pg 27.0-32.0 [facility] 31.6 g/dL 32-36 [facility] 243 K/mm3 150-450 [facility] 10.4 fl 6.2-12.0 [facility] 0 % 0-5 [facility] 35 mL/min >60 [facility] 42 mL/min >60 [facility] 18.5 RATIO 10-20 [facility] 3.6 g/dL 2.2-4.2 [facility] 0.7 RATIO 0.9-2.4 [facility] 81 U/L 45-117 [facility] 19 U/L 13-56 [facility] 31.0 mmol/L 21.0-32.0 [facility] 35.0 ng/mL [facility] RBC Auto (Bld) [#/Vol]Ordere d By: Alexy Douglas on 04-24-2023 RBC (Bld) [#/Vol] 3.87 10*6/uL 4.2-5.4 [facility] Serum or plasma calcium bob urement (mass/volume)Ordered By: Alexy Douglas on 04-24-2023 Calcium [Mass/Vol] 8.8 mg/dL 8.5-10.[address] [facility] Serum or plasma creatinine m easurement (mass/volume)Ordered By: Alexy Douglas on 04-24-2023 Creatinine [Mass/Vol] 1.51 mg/dL 0.55-1.02 [facility] Comment on above: The validity of the calculated GFR & GFRAA in patients over 70 years has not been determined. Clinical correlation is essential. Serum or plasma thyroid stim ulating hormone (TSH) measurement (units/volume)Ordered By: Alexy Douglas on 04-24-2023 TSH Qn 2.46 uIU/mL 0.358-3.74 [facility] Serum or plasma urea nitroge n measurement (mass/volume)Ordered By: lAexy Douglas on 04-24-2023 Urea nitrogen [Mass/Vol] 28 mg/dL 7-18 [facility] Thin prep Papanicolaou smear with manual screeningOrdered By: Alexy Douglas on 04-24-2023 Thin prep Papanicolaou smear with manual screening 2.6 g/dL 3.2-5.0 [facility] Thin prep Papanicolaou smear with manual screening 12 U/L 15-37 [facility] Thin prep Papanicolaou smear with manual screening 2 5-15 [facility] Basophil percentageOrdered B y: Mitali Hagen on 04-05-2023 Basophil percentage 242 mg/dL 74-106 [facility] Basophil percentage 3.2 mg/dL 2.5-4.9 [facility] Basophil percentage 140 mmol/L 136-145 [facility] Basophil percentage 4.9 mmol/L 3.5-5.1 [facility] Basophil percentage 106 mmol/L 98-107 [facility] Chloride [Moles/Vol] 106 mmol/L 98-107 [facility] Glucose [Mass/Vol] 242 mg/dL 74-[address] [facility] Comment on above: Glucose result great er than or equal to 200 mg/dLsuggests DIABETES MELLITUS per A.D.A. criteria. Potassium [Moles/Vol] 4.9 mmol/L 3.5-5.1 [facility] Sodium [Moles/Vol] 140 mmol/L 136-[address] [facility] Intact parathyroid hormone ( iPTH) measurementOrdered By: Mitali Hagen on 04-05-2023 Parathyrin.intact (Tissue fine needle aspirate) [Mass/Vol] 125.3 pg/mL 18.4-80.1 [facility] Laboratory - Chemistry and C hemistry - challengeOrdered By: Mitali Hagen on 04-05-2023 CO2 [Moles/Vol] 30.0 mmol/L 21.0-32.0 [facility] Urea nitrogen/Creatinine [Mass ratio] 23.1 mg/mg 10-20 [facility] No Panel InformationOrdered By: Mitali Hagen on 04-05-2023 Estimated GFR (MDRD) Amer 45 mL/min >60 [facility] Comment on above: GFR Calc Estimated GFR (MDRD) Non-Af Amer 37 mL/min >60 [facility] Comment on above: Non- GFR Calc 37 mL/min >60 [facility] 45 mL/min >60 [facility] 23.1 RATIO 01-04 [facility] 30.0 mmol/L 21.0-32.0 [facility] Serum or plasma calcium bob urement (mass/volume)Ordered By: Mitali Hagen on 04-05-2023 Calcium [Mass/Vol] 9.1 mg/dL 8.5-10.[address] [facility] Serum or plasma creatinine m easurement (mass/volume)Ordered By: Mitali Hagen on 04-05-2023 Creatinine [Mass/Vol] 1.43 mg/dL 0.55-1.02 [facility] Comment on above: The validity of the calculated GFR & GFRAA in patients over 70 years has not been determined. Clinical correlation is essential. Serum or plasma urea nitroge n measurement (mass/volume)Ordered By: Mitali Hagen on 04-05-2023 Urea nitrogen [Mass/Vol] 33 mg/dL 7-18 [facility] Thin prep Papanicolaou smear with manual screeningOrdered By: Mitali Hagen on 04-05-2023 Protein (U) [Mass/Vol] 181.7 mg/dL 0.0-11.8 [facility] Thin prep Papanicolaou smear with manual screening 181.7 mg/dL 0.0-11.8 [facility] Thin prep Papanicolaou smear with manual screening 1040.0 mg/L NO RANGE EST. [facility] Thin prep Papanicolaou smear with manual screening 2.7 g/dL 3.2-5.0 [facility] Urine albumin/creatinine rat io for detection of microalbuminuriaOrdered By: Mitali Hagen on 04-05-2023 Albumin/Creatinine DL <= 1.0 mg/L (24H U) [Ratio] 770.4 mg/g CRE <30 [facility] Urine creatinine measurement (mass/volume)Ordered By: Mitali Hagen on 04-05-2023 Creatinine (U) [Mass/Vol] 135.00 mg/dL NO RANGE EST. [facility] Urine protein/creatinine mas s ratioOrdered By: Mitali Hagen on 04-05-2023 Protein/Creatinine (U) [Mass ratio] 1346 mg/g CRE 0-200 [facility] Anaerobic cultureOrdered By: Alexy Douglas on 03-06-2023 Bacteria identified Anaer cx Nom (Unsp spec) No growth in 5 days. [facility] Bacteria identified Anaer cx Nom (Unsp spec) No growth in 5 days. [facility] Bacterial body fluid culture Ordered By: Alexy Douglas on 03-06-2023 Bacteria identified Cx Nom (Body fld) No growth aerobically. [facility] Bacteria identified Cx Nom (Body fld) No growth aerobically. [facility] Body fluid appearanceOrdered By: Alexy Douglas on 03-06-2023 Appearance (Body fld) CLEAR [facility] Body fluid color determinati onOrdered By: Alexy Douglas on 03-06-2023 Color (Body fld) YELLOW [facility] Body fluid lactate dehydroge nase measurement (enzymatic activity/volume) by pyruvateOrdered By: Alexy Douglas on 03-06-2023 LDH Pyruvate to lactate reaction (Body fld) [Catalytic activity/Vol] 104 Units/L Not Establ. [facility] Body fluid leukocytes count (number/volume)Ordered By: Alexy Douglas on 03-06-2023 WBC (Body fld) [#/Vol] 1.207 10*3/uL [facility] Body fluid lymphocytes/100 l eukocytesOrdered By: Alexy Douglas on 03-06-2023 Lymphocytes/100 WBC (Body fld) 69 % [facility] Body fluid macrophage countO rdered By: Alexy Douglas on 03-06-2023 Macrophages (Body fld) [#/Vol] 2 % [facility] Body fluid mesothelial cell percentageOrdered By: Alexy Douglas on 03-06-2023 Mesothelial cells/100 WBC (Body fld) 1 % [facility] Body fluid pH measurementOrd ered By: Alexy Douglas on 03-06-2023 pH (Body fld) 7.3 [pH] Not Estab. [facility] Comment on above: The reference interv al(s) and other method performance specificationshave not been established for this body fluid. The test result must beintegrated into the clinical context for interpretation.Performed at: [facility] [id number] Director: Brady Patel MD, Phone: [phone] Body fluid protein measureme nt (mass/volume)Ordered By: Alexy Douglas on 03-06-2023 Protein (Body fld) [Mass/Vol] 3.1 g/dL Not Establ. [facility] Body fluid segmented neutrop hils count (number/volume)Ordered By: Alexy Douglas on 03-06-2023 Segmented neutrophils (Body fld) [#/Vol] 23 % [facility] Cytology report of Body flui d Cyto stainOrdered By: Alexy Douglas on 03-06-2023 Cytology report Cyto stain Doc (Body fld) SEE PATHOLOGY REPORT [facility] Comment on above: Specimen submitted t o Anatomical Pathology Department for testing. Gram stain for investigation of transfusion reactionOrdered By: Alexy Dogulas on 03-06-2023 Microscopic observation Gram stain Nom (Unsp spec) [facility] Microscopic observation Gram stain Nom (Unsp spec) [facility] Mononuclear cells Auto (Body fld) [#/Vol]Ordered By: Alexy Douglas on 03-06-2023 Mononuclear cells (Body fld) [#/Vol] 1.114 10*3/uL [facility] No Panel InformationOrdered By: Alexy Douglas on 03-06-2023 Body Fluid Comment 2 SEE COMMENT [facility] Body Fluid Glucose 204 mg/dL 40- [facility] Body Fluid Mononuclear WBCs (%) 92.3 % [facility] Body Fluid Pathologist Comment Reviewed [facility] Comment on above: Previous reported re sult: May follow Edited by: RGOGIOAVNNY on 03/08/23:1314Negative for malignant cells.Cristobal Mcpherson M.D. 03/08/23 AMENDED REPORT 03/08/23 1314 PATH COMM/BF previously reported as: May follow Body Fluid Polynuclear WBCs (#) 0.093 10^3/uL [facility] Body Fluid Polynuclear WBCs (%) 7.7 % [facility] Body Fluid RBC 305 /mm3 [facility] 305 /mm3 [facility] 7.7 % [facility] 92.3 % [facility] 0.093 10^3/uL [facility] Reviewed [facility] SEE COMMENT [facility] 204 mg/dL [facility] Specimen source identificati on of body fluidOrdered By: Alexy Douglas on 03-06-2023 Specimen source Nom (Body fld) THORACENTESIS [facility] Thin prep Papanicolaou smear with manual screeningOrdered By: Alexy Douglas on 03-06-2023 Thin prep Papanicolaou smear with manual screening 5 % [facility] Total cell countOrdered By: Alexy Douglas on 03-06-2023 Cells counted Molgen (Bld/Tiss) [#] 1.228 10^3/ul 0.000-0.00 0 [facility] Comment on above: This is the Total Nu mber of Nucleated Cell Types in the Body Fluid. Laboratory - Microbiology an d Antimicrobial susceptibilityOrdered By: Alexy Douglas on 02-20-2023 SARS-CoV-2 (COVID-19) RNA ROSINA+probe Ql (Unsp spec) [facility] SARS-CoV-2 (COVID-19) RNA ROSINA+probe Ql (Unsp spec) [facility] No Panel InformationOrdered By: Alexy Douglas on 02-20-2023 Influenza Types A,B Direct FA (JAMILA) [facility] Influenza Types A,B Direct FA (JAMILA) [facility] RSV Ag EIAOrdered By: Alexy rodriguez on 02-20-2023 RSV Ag Immune stain Ql (Tiss) [facility] RSV Ag Immune stain Ql (Tiss) [facility] Absolute lymphocyte countOrd ered By: Zenobia Marie on 02-19-2023 Lymphocytes Auto (Unsp spec) [#/Vol] 2.15 10*3/uL 0.83-4.51 [facility] Basophil percentageOrdered B y: Zenobia Marie on 02-19-2023 Basophil percentage 3.0 mg/dL 2.5-4.9 [facility] Basophil percentage 227 mg/dL 74-106 [facility] Basophil percentage 6.1 g/dL 6.4-8.2 [facility] Basophil percentage 0.30 mg/dL 0.20-1.00 [facility] Basophil percentage 139 mmol/L 136-145 [facility] Basophil percentage 4.2 mmol/L 3.5-5.1 [facility] Basophil percentage 104 mmol/L 98-107 [facility] Basophils (Bld) [#/Vol] 10.6 10*3/uL 4.4-11.0 [facility] Basophils (Bld) [#/Vol] 7.0 10*3/uL 2.0-7.7 [facility] Basophils/100 WBC (Bld) 0.7 % 0-1 [facility] Basophils/100 WBC (Bld) 66.5 % 47-70 [facility] Basophils/100 WBC (Bld) 1.7 % 0-5 [facility] Bilirubin [Mass/Vol] 0.30 mg/dL 0.20-1.00 [facility] Comment on above: For patients on eltr ombopag therapy, use of Dimension [place] TBIL is not recommended. Chloride [Moles/Vol] 104 mmol/L 98-107 [facility] Eosinophils/100 WBC (Bld) 1.7 % 0-5 [facility] Glucose [Mass/Vol] 227 mg/dL 74-[address] [facility] Comment on above: Glucose result great er than or equal to 200 mg/dLsuggests DIABETES MELLITUS per A.D.A. criteria. Neutrophils (Bld) [#/Vol] 7.0 10*3/uL 2.0-7.7 [facility] Neutrophils/100 WBC (Bld) 66.5 % 47-70 [facility] Potassium [Moles/Vol] 4.2 mmol/L 3.5-5.1 [facility] Protein [Mass/Vol] 6.1 g/dL 6.4-8.[address] [facility] Sodium [Moles/Vol] 139 mmol/L 136-[address] [facility] WBC (Bld) [#/Vol] 10.6 10*3/uL 4.4-11.0 [facility] Blood erythrocytes count (nu mber/volume)Ordered By: Zenobia Marie on 02-19-2023 RBC (Bld) [#/Vol] 4.28 10*6/uL 4.2-5.4 [facility] Blood hemoglobin measurement (mass/volume)Ordered By: Zenobia Marie on 02-19-2023 Hemoglobin (Bld) [Mass/Vol] 12.6 g/dL 12.0-15. 0 [facility] Blood lymphocytes/100 leukoc ytesOrdered By: Zenobia Marie on 02-19-2023 Lymphocytes/100 WBC (Bld) 20.3 % 19-41 [facility] Blood monocytes/100 leukocyt esOrdered By: Zenobia Marie on 02-19-2023 Monocytes/100 WBC (Bld) 7.1 % 0-10 [facility] Blood platelet mean volumeOr dered By: Zenobia Marie on 02-19-2023 Platelet mean volume (Bld) [Entitic vol] 10.5 fL 6.2-12.0 [facility] Determination of erythrocyte mean corpuscular volume (MCV)Ordered By: Zenobia Marie on 02-19-2023 MCV (RBC) [Entitic vol] 93.9 fL 81-99 [facility] Hematocrit Auto (Bld) [Volum e fraction]Ordered By: Zenobia Marie on 02-19-2023 Hematocrit (Bld) [Volume fraction] 40.2 % 37-47 [facility] Laboratory - Chemistry and C hemistry - challengeOrdered By: Zenobia Marie on 02-19-2023 ALP [Catalytic activity/Vol] 73 U/L 45-117 [facility] ALT [Catalytic activity/Vol] 20 U/L 13-56 [facility] CO2 [Moles/Vol] 32.0 mmol/L 21.0-32.0 [facility] Globulin (S) [Mass/Vol] 3.7 g/dL 2.2-4.2 [facility] Urea nitrogen/Creatinine [Mass ratio] 21.4 mg/mg 10-20 [facility] Laboratory - Hematology and Cell countsOrdered By: Zenobia Marie on 02-19-2023 Erythrocyte distribution width (RBC) [Entitic vol] 48.5 fL 35.1-43.[address] [facility] Erythrocyte distribution width (RBC) [Ratio] 14.2 % 11.6-14.6 [facility] Immature granulocytes/100 WBC (Bld) 3.700 % 0.0-0.9 [facility] Comment on above: IG% - Immature Granu locytes (promyelocytes, myelocytes and metamyelocytes) > 1% indicates that a LEFT SHIFT is Present. MCH (RBC) [Entitic mass] 29.4 pg 27.0-32.0 [facility] Nucleated RBC/100 WBC (Bld) [Ratio] 0 % 0-5 [facility] MCHC Auto (RBC) [Mass/Vol]Or dered By: Zenobia Marie on 02-19-2023 MCHC (RBC) [Mass/Vol] 31.3 g/dL 32-36 [facility] No Panel InformationOrdered By: Zenobia Marie on 02-19-2023 Estimated GFR (MDRD) Amer 37 mL/min >60 [facility] Comment on above: GFR Calc Estimated GFR (MDRD) Non-Af Amer 31 mL/min >60 [facility] Comment on above: Non- GFR Calc 29.4 pg 27.0-32.0 [facility] 14.2 % 11.6-14.6 [facility] 48.5 fl 35.1-43.9 [facility] 3.700 % 0.0-0.9 [facility] 0 % 0-5 [facility] 31 mL/min >60 [facility] 37 mL/min >60 [facility] 21.4 RATIO 10-20 [facility] 3.7 g/dL 2.2-4.2 [facility] 73 U/L 45-117 [facility] 20 U/L 13-56 [facility] 32.0 mmol/L 21.0-32.0 [facility] Platelets bldOrdered By: Minal Marie on 02-19-2023 Platelets (Bld) [#/Vol] 322 10*3/uL 150-450 [facility] Serum or plasma albumin bob urement (mass/volume)Ordered By: Zenobia Marie on 02-19-2023 Albumin [Mass/Vol] 2.4 g/dL 3.2-5.[address] [facility] Serum or plasma albumin/glob ulin mass ratioOrdered By: Zenobia Marie on 02-19-2023 Albumin/Globulin [Mass ratio] 0.6 {ratio} 0.9-2.4 [facility] Serum or plasma calcium bob urement (mass/volume)Ordered By: Zenobia Marie on 02-19-2023 Calcium [Mass/Vol] 8.5 mg/dL 8.5-10.[address] [facility] Serum or plasma creatinine m easurement (mass/volume)Ordered By: Zenobia Marie on 02-19-2023 Creatinine [Mass/Vol] 1.68 mg/dL 0.55-1.02 [facility] Comment on above: The validity of the calculated GFR & GFRAA in patients over 70 years has not been determined. Clinical correlation is essential. Serum or plasma urea nitroge n measurement (mass/volume)Ordered By: Zenobia Marie on 02-19-2023 Urea nitrogen [Mass/Vol] 36 mg/dL 7-18 [facility] Thin prep Papanicolaou smear with manual screeningOrdered By: Zenobia Marie on 02-19-2023 Thin prep Papanicolaou smear with manual screening 10 U/L 15-37 [facility] Thin prep Papanicolaou smear with manual screening 3 5-15 [facility] Absolute lymphocyte countOrd ered By: Christina Menard on 02-16-2023 Lymphocytes Auto (Unsp spec) [#/Vol] 1.95 10*3/uL 0.83-4.51 [facility] Basophil percentageOrdered B y: Christina Menard on 02-16-2023 Basophil percentage 158 mg/dL 74-106 [facility] Basophil percentage 139 mmol/L 136-145 [facility] Basophil percentage 4.0 mmol/L 3.5-5.1 [facility] Basophil percentage 103 mmol/L 98-107 [facility] Basophils (Bld) [#/Vol] 9.6 10*3/uL 4.4-11.0 [facility] Basophils (Bld) [#/Vol] 6.4 10*3/uL 2.0-7.7 [facility] Basophils/100 WBC (Bld) 0.5 % 0-1 [facility] Basophils/100 WBC (Bld) 66.8 % 47-70 [facility] Basophils/100 WBC (Bld) 2.9 % 0-5 [facility] Chloride [Moles/Vol] 103 mmol/L 98-107 [facility] Eosinophils/100 WBC (Bld) 2.9 % 0-5 [facility] Glucose [Mass/Vol] 158 mg/dL 74-[address] [facility] Comment on above: Fasting Glucose resu lt greater than or equal to 126 mg/dL suggests DIABETES MELLITUS per A.D.A. criteria. Neutrophils (Bld) [#/Vol] 6.4 10*3/uL 2.0-7.7 [facility] Neutrophils/100 WBC (Bld) 66.8 % 47-70 [facility] Potassium [Moles/Vol] 4.0 mmol/L 3.5-5.1 [facility] Sodium [Moles/Vol] 139 mmol/L 136-[address] [facility] WBC (Bld) [#/Vol] 9.6 10*3/uL 4.4-11.[address] [facility] Blood erythrocytes count (nu mber/volume)Ordered By: Christina Menard on 02-16-2023 RBC (Bld) [#/Vol] 3.96 10*6/uL 4.2-5.4 [facility] Blood hemoglobin measurement (mass/volume)Ordered By: Christina Menard on 02-16-2023 Hemoglobin (Bld) [Mass/Vol] 11.6 g/dL 12.0-15. 0 [facility] Blood lymphocytes/100 leukoc ytesOrdered By: Christina Menard on 02-16-2023 Lymphocytes/100 WBC (Bld) 20.3 % 19-41 [facility] Blood monocytes/100 leukocyt esOrdered By: Christina Menard on 02-16-2023 Monocytes/100 WBC (Bld) 8.0 % 0-10 [facility] Blood platelet mean volumeOr dered By: Christina Menard on 02-16-2023 Platelet mean volume (Bld) [Entitic vol] 9.8 fL 6.2-12.0 [facility] Determination of erythrocyte mean corpuscular volume (MCV)Ordered By: Christina Menard on 02-16-2023 MCV (RBC) [Entitic vol] 94.2 fL 81-99 [facility] Glucose Glucometer (dC) [M ass/Vol]Ordered By: Christina Menard on 02-16-2023 Glucose [Mass/Vol] 189 mg/dL 74-[address] [facility] Comment on above: MANAGEMENT OF PATIEN T CARE PER NURSING PROTOCOL Hematocrit Auto (Bld) [Volum e fraction]Ordered By: Christina Menard on 02-16-2023 Hematocrit (Bld) [Volume fraction] 37.3 % 37-47 [facility] Laboratory - Chemistry and C hemistry - challengeOrdered By: Christina Menard on 02-16-2023 CO2 [Moles/Vol] 28.0 mmol/L 21.0-32.0 [facility] Magnesium [Mass/Vol] 2.2 mg/dL 1.6-2.6 [facility] Urea nitrogen/Creatinine [Mass ratio] 24.3 mg/mg 10-20 [facility] Laboratory - Hematology and Cell countsOrdered By: Christina Menard on 02-16-2023 Erythrocyte distribution width (RBC) [Entitic vol] 49.0 fL 35.1-43.[address] [facility] Erythrocyte distribution width (RBC) [Ratio] 14.2 % 11.6-14.6 [facility] Immature granulocytes/100 WBC (Bld) 1.500 % 0.0-0.9 [facility] Comment on above: IG% - Immature Granu locytes (promyelocytes, myelocytes and metamyelocytes) > 1% indicates that a LEFT SHIFT is Present. MCH (RBC) [Entitic mass] 29.3 pg 27.0-32.0 [facility] Nucleated RBC/100 WBC (Bld) [Ratio] 0 % 0-5 [facility] Laboratory - Microbiology an d Antimicrobial susceptibilityOrdered By: Daniel Briscoe on 02-16-2023 Bacteria identified Cx Nom (Bld) Presumptive Micrococcus spp. [facility] Bacteria identified Cx Nom (Bld) No growth in 5 days. [facility] MCHC Auto (RBC) [Mass/Vol]Or dered By: Christina Menard on 02-16-2023 MCHC (RBC) [Mass/Vol] 31.1 g/dL 32-36 [facility] No Panel InformationOrdered By: Christina Menard on 02-16-2023 Bacteria Detection (PCR) [facility] Estimated Creatinine Clearance Calc 24.42 ml/min [facility] Estimated GFR (MDRD) Amer 36 mL/min >60 [facility] Comment on above: GFR Calc Estimated GFR (MDRD) Non-Af Amer 30 mL/min >60 [facility] Comment on above: Non- GFR Calc 29.3 pg 27.0-32.0 [facility] 14.2 % 11.6-14.6 [facility] 49.0 fl 35.1-43.9 [facility] 1.500 % 0.0-0.9 [facility] 0 % 0-5 [facility] 30 mL/min >60 [facility] 36 mL/min >60 [facility] 24.42 ml/min [facility] 24.3 RATIO 10-20 [facility] 2.2 mg/dL 1.6-2.6 [facility] 28.0 mmol/L 21.0-32.0 [facility] No Panel InformationOrdered By: Daniel Briscoe on 02-16-2023 Presumptive Micrococcus spp. [facility] No growth in 5 days. [facility] Presumptive Micrococcus spp. [facility] No growth in 5 days. [facility] Platelets bldOrdered By: Rodrick Menard on 12-02-2023 Platelets (Bld) [#/Vol] 252 10*3/uL 150-450 [facility] Serum or plasma calcium bob urement (mass/volume)Ordered By: Christina Menard on 02-16-2023 Calcium [Mass/Vol] 8.4 mg/dL 8.5-10.[address] [facility] Serum or plasma creatinine m easurement (mass/volume)Ordered By: Christina Menard on 02-16-2023 Creatinine [Mass/Vol] 1.73 mg/dL 0.55-1.02 [facility] Comment on above: The validity of the calculated GFR & GFRAA in patients over 70 years has not been determined. Clinical correlation is essential. Serum or plasma urea nitroge n measurement (mass/volume)Ordered By: Christina Menard on 02-16-2023 Urea nitrogen [Mass/Vol] 42 mg/dL 7-18 [facility] Thin prep Papanicolaou smear with manual screeningOrdered By: Christina Menard on 02-16-2023 Thin prep Papanicolaou smear with manual screening 8 5-15 [facility] Anaerobic cultureOrdered By: Christina Menard on 02-15-2023 Bacteria identified Anaer cx Nom (Unsp spec) No growth in 5 days. [facility] Bacteria identified Anaer cx Nom (Unsp spec) No growth in 5 days. [facility] Atypical perinuclear antineu trophil cytoplasmic antibodies measurementOrdered By: Edgardo Greenwood on 02-15-2023 Neutrophil cytoplasmic Ab.perinuclear.atypical IF (S) [Titer] <1:20 titer Neg:<1:20 [facility] Comment on above: The atypical pANCA p attern has been observed in asignificant percentage of patients with ulcerative colitis,primary sclerosing cholangitis and autoimmune hepatitis. Bacterial body fluid culture Ordered By: Christina Menard on 02-15-2023 Bacteria identified Cx Nom (Body fld) No growth aerobically. [facility] Bacteria identified Cx Nom (Body fld) No growth aerobically. [facility] Basophil percentageOrdered B y: Edgardo Greenwood on 02-15-2023 Basophil percentage 6.4 g/dL 6.4-8.2 [facility] Basophil percentage 222 U/L 84-246 [facility] LDH [Catalytic activity/Vol] 222 U/L 84-246 [facility] Protein [Mass/Vol] 6.4 g/dL 6.4-8.[address] [facility] Basophil percentage Not Reportable [facility] Body fluid appearanceOrdered By: Amaury Pena on 02-15-2023 Appearance (Body fld) SL CLDY [facility] Body fluid color determinati onOrdered By: Amaury Pena on 02-15-2023 Color (Body fld) YELLOW [facility] Body fluid lactate dehydroge nase measurement (enzymatic activity/volume) by pyruvateOrdered By: Amaury Pena on 02-15-2023 LDH Pyruvate to lactate reaction (Body fld) [Catalytic activity/Vol] 214 Units/L Not Establ. [facility] Body fluid leukocytes count (number/volume)Ordered By: Amaury Pena on 02-15-2023 WBC (Body fld) [#/Vol] 4.848 10*3/uL [facility] Body fluid lymphocytes/100 l eukocytesOrdered By: Amaury Pena on 02-15-2023 Lymphocytes/100 WBC (Body fld) 50 % [facility] Body fluid macrophage countO rdered By: Amaury Pena on 02-15-2023 Macrophages (Body fld) [#/Vol] 6 % [facility] Body fluid protein measureme nt (mass/volume)Ordered By: Amaury Pena on 02-15-2023 Protein (Body fld) [Mass/Vol] 2.8 g/dL Not Establ. [facility] Body fluid segmented neutrop hils count (number/volume)Ordered By: Amaury Pena on 02-15-2023 Segmented neutrophils (Body fld) [#/Vol] 38 % [facility] Cytology report of Body flui d Cyto stainOrdered By: Amaury Pena on 02-15-2023 Cytology report Cyto stain Doc (Body fld) SEE PATHOLOGY REPORT [facility] Comment on above: Specimen submitted t o Anatomical Pathology Department for testing. Gram stain for investigation of transfusion reactionOrdered By: Christina Menard on 02-15-2023 Microscopic observation Gram stain Nom (Unsp spec) [facility] Microscopic observation Gram stain Nom (Unsp spec) [facility] Laboratory - Chemistry and C hemistry - challengeOrdered By: Edgardo Greenwood on 02-15-2023 Globulin (S) [Mass/Vol] 4.1 g/dL 2.2-4.2 [facility] Mononuclear cells Auto (Body fld) [#/Vol]Ordered By: Amaury Pena on 02-15-2023 Mononuclear cells (Body fld) [#/Vol] 4.057 10*3/uL [facility] No Panel InformationOrdered By: Amaury Pena on 02-15-2023 Body Fluid Comment 2 SEE COMMENT [facility] Body Fluid Mononuclear WBCs (%) 83.7 % [facility] Body Fluid Pathologist Comment May follow [facility] Body Fluid Pathologist Comment Reviewed [facility] Comment on above: Previous reported re sult: May follow Edited by: RGOGIOVANNY on 02/18/23:1324Consistent with lymphocytic effusion.Please also refer to cytology report [id number].Cristobal Mcpherson M.D. 02/18/23 AMENDED REPORT 02/18/23 1324 PATH COMM/BF previously reported as: May follow Body Fluid Polynuclear WBCs (#) 0.791 10^3/uL [facility] Body Fluid Polynuclear WBCs (%) 16.3 % [facility] Body Fluid RBC 1035 /mm3 [facility] 1035 /mm3 [facility] 16.3 % [facility] 83.7 % [facility] 0.791 10^3/uL [facility] Reviewed [facility] SEE COMMENT [facility] No Panel InformationOrdered By: Edgardo Greenwood on 02-15-2023 Body Fluid Glucose 200 mg/dL 40-[address] [facility] 200 mg/dL 40-70 [facility] 4.1 g/dL 2.2-4.2 [facility] Anti-Nuclear Antibody Screen Negative Negative [facility] Comment on above: Performed at: [facility] [email or web address] [address] [id number] Director: Sonu Moreno PhD, Phone: [phone] [employer] Antibody Not Reportable [facility] MATCHER OPERATOR Antibody Not Reportable [facility] Negative Negative [facility] Not Reportable [facility] Serum DNA double strand anti body assay (units/volume)Ordered By: Edgardo Greenwood on 02-15-2023 DNA double strand Ab Qn (S) Not Reportable [facility] Serum Phylicia-1 antibody assay (u nits/volume)Ordered By: Edgardo Greenwood on 02-15-2023 Phylicia-1 extractable nuclear Ab Qn (S) Not Reportable [facility] Serum Scl-70 extractable nuc lear antibody assay (units/volume)Ordered By: Edgardo Greenwood on 02-15-2023 SCL-70 extractable nuclear Ab Qn (S) Not Reportable [facility] Serum Garcia extractable nucl ear antibody detectionOrdered By: Edgardo Greenwood on 02-15-2023 Garcia extractable nuclear Ab Ql (S) Not Reportable [facility] Serum classic neutrophil cyt oplasmic antibody assay (units/volume)Ordered By: Edgardo Greenwood on 02-15-2023 Neutrophil cytoplasmic Ab.classic Qn (S) <1:20 titer Neg:<1:20 [facility] Serum cyclic citrullinated p eptide IgG antibody assay (units/volume)Ordered By: Edgardo Greenwood on 02-15-2023 Cyclic citrullinated peptide IgG Qn 4 units 0-19 [facility] Comment on above: Negative <20 Weak po sitive 20 - 39 Moderate positive 40 - 59 Strong positive >59Performed at: [place] [place] [id number] Director: Sonu Moreno PhD, Phone: [phone] Serum or plasma albumin/glob ulin mass ratioOrdered By: Edgardo Greenwood on 02-15-2023 Albumin/Globulin [Mass ratio] 0.6 {ratio} 0.9-2.4 [facility] Serum perinuclear neutrophil cytoplasmic antibody titer by immunofluorescenceOrdered By: Edgardo Greenwood on 02-15-2023 Neutrophil cytoplasmic Ab.perinuclear IF (S) [Titer] 1:20 titer Neg:<1:20 [facility] Comment on above: The presence of posi tive fluorescence exhibiting P-ANCA orC-ANCA patterns alone is not specific for the diagnosis ofWegener's Granulomatosis (WG) or microscopic polyangiitis.Decisions about treatment should not be based solely onANCA IFA results. The [employer] ANCA [employer] Consensusrecommends follow up testing of positive sera with both WI-3 and MPO-ANCA enzyme immunoassays. As many as 5% serumsamples are positive only by EIA. Ref. AM J Clin [id number];111:507-513. Serum rheumatoid factor dete ctionOrdered By: Edgardo Greenwood on 02-15-2023 Rheumatoid factor Ql (S) < 10.0 IU/mL <15 [facility] Specimen source identificati on of body fluidOrdered By: Amaury Pena on 02-15-2023 Specimen source Nom (Body fld) THORACENTESIS [facility] Thin prep Papanicolaou smear with manual screeningOrdered By: Amaury Pena on 02-15-2023 Thin prep Papanicolaou smear with manual screening 5 % [facility] Thin prep Papanicolaou smear with manual screening 1 % [facility] Total cell countOrdered By: Amaury Pena on 02-15-2023 Cells counted Molgen (Bld/Tiss) [#] 4.929 10^3/ul 0.000-0.00 0 [facility] Comment on above: This is the Total Nu mber of Nucleated Cell Types in the Body Fluid. Whole blood hemoglobin A1c/t otal hemoglobin ratio (mass fraction)Ordered By: Amaury Pena on 02-15-2023 HbA1c (Bld) [Mass fraction] 7.1 % 3.8-5.6 [facility] Comment on above: Normal < 5.7 % Predi abetic 5.7 - 6.4 % Diabetic >or= 6.5 % Please note range changes. Absolute lymphocyte countOrd ered By: Daniel Briscoe on 02-14-2023 Lymphocytes Auto (Unsp spec) [#/Vol] 1.22 10*3/uL 0.83-4.51 [facility] Amorphous sediment detection in urine sediment by light microscopyOrdered By: Daniel Briscoe on 02-14-2023 Amorphous sediment LM Ql (Urine sed) 2+ [facility] Basophil percentageOrdered B y: Daniel Briscoe on 02-14-2023 Basophil percentage 0 SEEN /hpf 0-5 [facility] Basophil percentage 0.30 mg/dL 0.20-1.00 [facility] Basophil percentage 0.9 mmol/L 0.4-2.0 [facility] Basophils/100 WBC (Bld) 0.7 % 0-1 [facility] Bilirubin [Mass/Vol] 0.30 mg/dL 0.20-1.00 [facility] Comment on above: For patients on eltr ombopag therapy, use of Dimension [place] TBIL is not recommended. Chloride [Moles/Vol] 108 mmol/L 98-107 [facility] Eosinophils/100 WBC (Bld) 2.8 % 0-5 [facility] Glucose [Mass/Vol] 96 mg/dL 74-[address] [facility] Lactate [Moles/Vol] 0.9 mmol/L 0.4-2.0 [facility] Neutrophils (Bld) [#/Vol] 6.3 10*3/uL 2.0-7.7 [facility] Neutrophils/100 WBC (Bld) 71.1 % 47-70 [facility] Potassium [Moles/Vol] 4.0 mmol/L 3.5-5.1 [facility] Protein [Mass/Vol] 6.2 g/dL 6.4-8.[address] [facility] Sodium [Moles/Vol] 142 mmol/L 136-[address] [facility] WBC (Bld) [#/Vol] 8.9 10*3/uL 4.4-11.[address] [facility] Bilirubin Test strip Ql (U)O rdered By: Daniel Briscoe on 02-14-2023 Bilirubin Ql (U) Negative Negative [facility] Blood erythrocytes count (nu mber/volume)Ordered By: Daniel Briscoe on 02-14-2023 RBC (Bld) [#/Vol] 4.35 10*6/uL 4.2-5.4 [facility] Blood hemoglobin measurement (mass/volume)Ordered By: Daniel Briscoe on 02-14-2023 Hemoglobin (Bld) [Mass/Vol] 12.5 g/dL 12.0-15. 0 [facility] Blood lymphocytes/100 leukoc ytesOrdered By: Daniel Briscoe on 02-14-2023 Lymphocytes/100 WBC (Bld) 13.7 % 19-41 [facility] Blood monocytes/100 leukocyt esOrdered By: Daniel Briscoe on 02-14-2023 Monocytes/100 WBC (Bld) 10.8 % 0-10 [facility] Blood platelet mean volumeOr dered By: Daniel Briscoe on 02-14-2023 Platelet mean volume (Bld) [Entitic vol] 10.4 fL 6.2-12.0 [facility] Culture, urineOrdered By: Zelalem Briscoe on 02-14-2023 Bacteria identified Cx Nom (U) Culture exhibits no growth. [facility] Bacteria identified Cx Nom (U) Culture exhibits no growth. [facility] Determination of erythrocyte mean corpuscular volume (MCV)Ordered By: Daniel Briscoe on 02-14-2023 MCV (RBC) [Entitic vol] 92.4 fL 81-99 [facility] Hematocrit Auto (Bld) [Volum e fraction]Ordered By: Daniel Briscoe on 02-14-2023 Hematocrit (Bld) [Volume fraction] 40.2 % 37-47 [facility] INR in Blood by Coagulation assayOrdered By: Amaury Pena on 02-14-2023 INR Coag (Bld) [Relative time] 1.0 {INR} [facility] Influenza virus A and B and SARS-CoV-2 (COVID-19) Ag panel - Upper respiratory specimOrdered By: Daniel Briscoe on 02-14-2023 SARS-CoV-2 (COVID-19) RNA ROSINA+probe Ql (Resp) [facility] Ketones Test strip Ql (U)Ord ered By: Daniel Briscoe on 02-14-2023 Ketones Ql (U) Negative Negative [facility] Laboratory - Chemistry and C hemistry - challengeOrdered By: Daniel Briscoe on 02-14-2023 ALP [Catalytic activity/Vol] 70 U/L 45-117 [facility] ALT [Catalytic activity/Vol] 18 U/L 13-56 [facility] CO2 [Moles/Vol] 30.0 mmol/L 21.0-32.0 [facility] Globulin (S) [Mass/Vol] 4.1 g/dL 2.2-4.2 [facility] Natriuretic peptide B (Bld) [Mass/Vol] 354.0 pg/mL 0-100 [facility] Urea nitrogen/Creatinine [Mass ratio] 27.0 mg/mg 10-20 [facility] Laboratory - CoagulationOrde red By: Amaury Pena on 02-14-2023 aPTT Coag (Bld) [Time] 30.3 s 24.1-36.2 [facility] PT Coag (PPP) [Time] 12.9 s 11.7-14.9 [facility] Laboratory - Hematology and Cell countsOrdered By: Daniel Briscoe on 02-14-2023 Erythrocyte distribution width (RBC) [Entitic vol] 48.3 fL 35.1-43.[address] [facility] Erythrocyte distribution width (RBC) [Ratio] 14.3 % 11.6-14.6 [facility] Immature granulocytes/100 WBC (Bld) 0.900 % 0.0-0.9 [facility] Comment on above: IG% - Immature Granu locytes (promyelocytes, myelocytes and metamyelocytes) > 1% indicates that a LEFT SHIFT is Present. MCH (RBC) [Entitic mass] 28.7 pg 27.0-32.0 [facility] Nucleated RBC/100 WBC (Bld) [Ratio] 0 % 0-5 [facility] MCHC Auto (RBC) [Mass/Vol]Or dered By: Daniel Briscoe on 02-14-2023 MCHC (RBC) [Mass/Vol] 31.1 g/dL 32-36 [facility] Mucus LM Ql (Urine sed)Order ed By: Daniel Briscoe on 02-14-2023 Mucus Ql (Urine sed) 0 SEEN /hpf [facility] Nitrite Test strip Ql (U)Ord ered By: Daniel Briscoe on 02-14-2023 Nitrite Ql (U) Negative Negative [facility] No Panel InformationOrdered By: Daniel Briscoe on 02-14-2023 Estimated Creatinine Clearance Calc 27.79 ml/min [facility] Estimated GFR (MDRD) Amer 42 mL/min >60 [facility] Comment on above: GFR Calc Estimated GFR (MDRD) Non-Af Amer 35 mL/min >60 [facility] Comment on above: Non- GFR Calc Troponin I High Sensitivity 21 pg/mL 3.0-54.0 [facility] Comment on above: Please Note: [place] Units and Gender Specific Reference Ranges. For more information see Policy Stat Procedure [place] High Sensitivity Troponin (TNIH) and attachments. 21 pg/mL 3.0-54.0 [facility] 70 U/L 45-117 [facility] 18 U/L 13-56 [facility] 354.0 pg/mL 0-100 [facility] No Panel InformationOrdered By: Amaury Pena on 02-14-2023 Thyroid Stimulating Hormone (TSH) 2.07 uIU/mL 0.358-3.74 [facility] 12.9 SECONDS 11.7-14.9 [facility] 30.3 Seconds 24.1-36.2 [facility] 2.07 uIU/mL 0.358-3.74 [facility] Platelets bldOrdered By: Dinora Briscoe on 02-14-2023 Platelets (Bld) [#/Vol] 271 10*3/uL 150-450 [facility] Protein Test strip Ql (U)Ord ered By: Daniel Briscoe on 02-14-2023 Protein Ql (U) 100 mg/dl Negative [facility] Serum or plasma albumin bob urement (mass/volume)Ordered By: Daniel Briscoe on 02-14-2023 Albumin [Mass/Vol] 2.1 g/dL 3.2-5.[address] [facility] Serum or plasma albumin/glob ulin mass ratioOrdered By: Daniel Briscoe on 02-14-2023 Albumin/Globulin [Mass ratio] 0.5 {ratio} 0.9-2.4 [facility] Serum or plasma calcium bob urement (mass/volume)Ordered By: Daniel Briscoe on 02-14-2023 Calcium [Mass/Vol] 8.6 mg/dL 8.5-10.[address] [facility] Serum or plasma creatinine m easurement (mass/volume)Ordered By: Daniel Briscoe on 02-14-2023 Creatinine [Mass/Vol] 1.52 mg/dL 0.55-1.02 [facility] Comment on above: The validity of the calculated GFR & GFRAA in patients over 70 years has not been determined. Clinical correlation is essential. Serum or plasma urea nitroge n measurement (mass/volume)Ordered By: Daniel Briscoe on 02-14-2023 Urea nitrogen [Mass/Vol] 41 mg/dL 7-18 [facility] Squamous epithelial cells de tection in urine sediment by light microscopyOrdered By: Daniel Briscoe on 02-14-2023 Epithelial cells.squamous LM Ql (Urine sed) 0-5 SEEN /hpf 5-10 [facility] Thin prep Papanicolaou smear with manual screeningOrdered By: Daniel Briscoe on 02-14-2023 Thin prep Papanicolaou smear with manual screening 12 U/L 15-37 [facility] Thin prep Papanicolaou smear with manual screening 4 5-15 [facility] Upper respiratory specimen i nfluenza A virus, influenza B virus, and severe acute resOrdered By: Daniel Briscoe on 02-14-2023 Upper respiratory specimen influenza A virus, influenza B virus, and severe acute res [facility] Upper respiratory specimen i nfluenza A virus, influenza B virus, and severe acute respiratory syndromOrdered By: Daniel Briscoe on 02-14-2023 Upper respiratory specimen influenza A virus, influenza B virus, and severe acute respiratory syndrom [facility] Urine blood detectionOrdered By: Daniel Briscoe on 02-14-2023 RBC Ql (U) 10 /ul Negative [facility] RBC Ql (U) 0 SEEN /hpf 0-5 [facility] Urine clarityOrdered By: Dinora Briscoe on 02-14-2023 Clarity (U) Sl. Cloudy Clear [facility] Urine color determinationOrd ered By: Daniel Briscoe on 02-14-2023 Color (U) Yellow Yellow [facility] Urine glucose detectionOrder ed By: Daniel Briscoe on 02-14-2023 Glucose Ql (U) Normal mg/dl Normal [facility] Urine leukocyte esterase det ection by dipstickOrdered By: Daniel Briscoe on 02-14-2023 Leukocyte esterase Test strip Ql (U) Negative Negative [facility] Urine pHOrdered By: Daniel adame on 02-14-2023 pH (U) 5.0 [pH] 5.0 - 8.0 [facility] Urine sediment bacteria coun t by microscopy (number/high power field)Ordered By: Daniel Briscoe on 02-14-2023 Bacteria LM.HPF (Urine sed) [#/Area] 0 /[HPF] None Seen [facility] Urine specific gravity measu rementOrdered By: Daniel Briscoe on 02-14-2023 Specific gravity (U) [Rel density] 1.020 1.002-1.03 0 [facility] Urobilinogen Auto test strip Ql (U)Ordered By: Daniel Briscoe on 02-14-2023 Urobilinogen Ql (U) 1 mg/dl Normal [facility] Absolute lymphocyte countOrd ered By: Alexy Douglas on 01-30-2023 Lymphocytes Auto (Unsp spec) [#/Vol] 1.45 10*3/uL 0.83-4.51 [facility] Basophil percentageOrdered B y: Alexy Douglas on 01-30-2023 Basophil percentage 138 mg/dL 74-106 [facility] Basophil percentage 141 mmol/L 136-145 [facility] Basophil percentage 4.2 mmol/L 3.5-5.1 [facility] Basophil percentage 106 mmol/L 98-107 [facility] Basophils (Bld) [#/Vol] 12.7 10*3/uL 4.4-11.0 [facility] Basophils (Bld) [#/Vol] 10.0 10*3/uL 2.0-7.7 [facility] Basophils/100 WBC (Bld) 0.3 % 0-1 [facility] Basophils/100 WBC (Bld) 78.8 % 47-70 [facility] Basophils/100 WBC (Bld) 2.0 % 0-5 [facility] Chloride [Moles/Vol] 106 mmol/L 98-107 [facility] Eosinophils/100 WBC (Bld) 2.0 % 0-5 [facility] Glucose [Mass/Vol] 138 mg/dL 74-[address] [facility] Comment on above: Fasting Glucose resu lt greater than or equal to 126 mg/dL suggests DIABETES MELLITUS per A.D.A. criteria. Neutrophils (Bld) [#/Vol] 10.0 10*3/uL 2.0-7.7 [facility] Neutrophils/100 WBC (Bld) 78.8 % 47-70 [facility] Potassium [Moles/Vol] 4.2 mmol/L 3.5-5.1 [facility] Sodium [Moles/Vol] 141 mmol/L 136-[address] [facility] WBC (Bld) [#/Vol] 12.7 10*3/uL 4.4-11.0 [facility] Blood erythrocytes count (nu mber/volume)Ordered By: [facility] on 01-30-2023 RBC (Bld) [#/Vol] 4.48 10*6/uL 4.2-5.4 [facility] Blood hemoglobin measurement (mass/volume)Ordered By: [facility] on 01-30-2023 Hemoglobin (Bld) [Mass/Vol] 13.0 g/dL 12.0-15. 0 [facility] Blood lymphocytes/100 leukoc ytesOrdered By: [facility] on 01-30-2023 Lymphocytes/100 WBC (Bld) 11.4 % 19-41 [facility] Blood monocytes/100 leukocyt esOrdered By: [facility] on 01-30-2023 Monocytes/100 WBC (Bld) 6.8 % 0-10 [facility] Blood platelet mean volumeOr dered By: [facility] on 01-30-2023 Platelet mean volume (Bld) [Entitic vol] 11.5 fL 6.2-12.0 [facility] Determination of erythrocyte mean corpuscular volume (MCV)Ordered By: [facility] on 01-30-2023 MCV (RBC) [Entitic vol] 96.0 fL 81-99 [facility] Hematocrit Auto (Bld) [Volum e fraction]Ordered By: [facility] on 01-30-2023 Hematocrit (Bld) [Volume fraction] 43.0 % 37-47 [facility] Laboratory - Chemistry and C hemistry - challengeOrdered By: [facility] 01-30-2023 CO2 [Moles/Vol] 33.0 mmol/L 21.0-32.0 [facility] Urea nitrogen/Creatinine [Mass ratio] 17.8 mg/mg 10-20 [facility] Laboratory - Hematology and Cell countsOrdered By: [facility] on 01-30-2023 Erythrocyte distribution width (RBC) [Entitic vol] 50.9 fL 35.1-43.[address] [facility] Erythrocyte distribution width (RBC) [Ratio] 14.6 % 11.6-14.6 [facility] Immature granulocytes/100 WBC (Bld) 0.700 % 0.0-0.9 [facility] Comment on above: IG% - Immature Granu locytes (promyelocytes, myelocytes and metamyelocytes) > 1% indicates that a LEFT SHIFT is Present. MCH (RBC) [Entitic mass] 29.0 pg 27.0-32.0 [facility] Nucleated RBC/100 WBC (Bld) [Ratio] 0 % 0-5 [facility] MCHC Auto (RBC) [Mass/Vol]Or dered By: Alexy Douglas on 01-30-2023 MCHC (RBC) [Mass/Vol] 30.2 g/dL 32-36 [facility] No Panel InformationOrdered By: Alexy Douglas on 01-30-2023 Estimated GFR (MDRD) Amer 40 mL/min >60 [facility] Comment on above: GFR Calc Estimated GFR (MDRD) Non-Af Amer 33 mL/min >60 [facility] Comment on above: Non- GFR Calc 29.0 pg 27.0-32.0 [facility] 14.6 % 11.6-14.6 [facility] 50.9 fl 35.1-43.9 [facility] 0.700 % 0.0-0.9 [facility] 0 % 0-5 [facility] 33 mL/min >60 [facility] 40 mL/min >60 [facility] 17.8 RATIO 10-20 [facility] 33.0 mmol/L 21.0-32.0 [facility] Platelets bldOrdered By: Alexy Douglas on 01-30-2023 Platelets (Bld) [#/Vol] 260 10*3/uL 150-450 [facility] Serum or plasma calcium bob urement (mass/volume)Ordered By: Alexy Douglas on 01-30-2023 Calcium [Mass/Vol] 8.9 mg/dL 8.5-10.[address] [facility] Serum or plasma creatinine m easurement (mass/volume)Ordered By: Alexy Douglas 01-30-2023 Creatinine [Mass/Vol] 1.57 mg/dL 0.55-1.02 [facility] Comment on above: The validity of the calculated GFR & GFRAA in patients over 70 years has not been determined. Clinical correlation is essential. Serum or plasma urea nitroge n measurement (mass/volume)Ordered By: Alexy Douglas on 01-30-2023 Urea nitrogen [Mass/Vol] 28 mg/dL 7-18 [facility] Thin prep Papanicolaou smear with manual screeningOrdered By: Alexy Douglas on 01-30-2023 Thin prep Papanicolaou smear with manual screening 2 5-15 [facility] Anaerobic cultureOrdered By: Alexy Douglas on 01-25-2023 Bacteria identified Anaer cx Nom (Unsp spec) No growth in 5 days. [facility] Bacterial body fluid culture Ordered By: Alexy Douglas on 01-25-2023 Bacteria identified Cx Nom (Body fld) No growth aerobically. [facility] Body fluid appearanceOrdered By: Alexy Douglas on 01-25-2023 Appearance (Body fld) CLEAR [facility] Body fluid color determinati onOrdered By: Alexy Douglas on 01-25-2023 Color (Body fld) YELLOW [facility] Body fluid lactate dehydroge nase measurement (enzymatic activity/volume) by pyruvateOrdered By: Alexy Douglas 01-25-2023 LDH Pyruvate to lactate reaction (Body fld) [Catalytic activity/Vol] 68 Units/L Not Establ. [facility] Body fluid leukocytes count (number/volume)Ordered By: Alexy Douglas 01-25-2023 WBC (Body fld) [#/Vol] 1.977 10*3/uL [facility] Body fluid lymphocytes/100 l eukocytesOrdered By: Alexy Douglas 01-25-2023 Lymphocytes/100 WBC (Body fld) 72 % [facility] Body fluid pH measurementOrd ered By: Alexy Douglas on 01-25-2023 pH (Body fld) 7.3 [pH] Not Estab. [facility] Comment on above: The reference interv al(s) and other method performance specificationshave not been established for this body fluid. The test result must beintegrated into the clinical context for interpretation.Performed at: [facility] [id number] Director: Brady Patel MD, Phone: [phone] Body fluid protein measureme nt (mass/volume)Ordered By: Alexy Douglas on 01-25-2023 Protein (Body fld) [Mass/Vol] 3.1 g/dL Not Establ. [facility] Body fluid segmented neutrop hils count (number/volume)Ordered By: Alexy Douglas on 01-25-2023 Segmented neutrophils (Body fld) [#/Vol] 25 % [facility] Cytology report of Body flui d Cyto stainOrdered By: Alexy Douglas on 01-25-2023 Cytology report Cyto stain Doc (Body fld) SEE PATHOLOGY REPORT [facility] Comment on above: Specimen submitted t o Anatomical Pathology Department for testing. Gram stain for investigation of transfusion reactionOrdered By: Alexy Douglas on 01-25-2023 Microscopic observation Gram stain Nom (Unsp spec) [facility] Mononuclear cells Auto (Body fld) [#/Vol]Ordered By: Alexy Douglas on 01-25-2023 Mononuclear cells (Body fld) [#/Vol] 1.679 10*3/uL [facility] No Panel InformationOrdered By: Alexy Douglas on 01-25-2023 Body Fluid Comment 2 SEE COMMENT [facility] Body Fluid Glucose 166 mg/dL [facility] Body Fluid Mononuclear WBCs (%) 85.0 % [facility] Body Fluid Pathologist Comment May follow [facility] Body Fluid Pathologist Comment Reviewed [facility] Comment on above: Previous reported re sult: May follow Edited by: RGOGIOVANNY on 01/30/23:1000Rare atypical epithelioid cells present.Polymorphous lymphocytes and macrophages present.Dre Brock D.O. 01/30/23 AMENDED REPORT 01/30/23 1000 PATH COMM/BF previously reported as: May follow Body Fluid Polynuclear WBCs (#) 0.298 10^3/uL [facility] Body Fluid Polynuclear WBCs (%) 15.0 % [facility] Body Fluid RBC 880 /mm3 [facility] 880 /mm3 [facility] 15.0 % [facility] 85.0 % [facility] 0.298 10^3/uL [facility] Reviewed [facility] SEE COMMENT [facility] 166 mg/dL [facility] Specimen source identificati on of body fluidOrdered By: Alexy Douglas on 01-25-2023 Specimen source Nom (Body fld) THORACENTESIS [facility] Thin prep Papanicolaou smear with manual screeningOrdered By: Alexy Douglas on 01-25-2023 Thin prep Papanicolaou smear with manual screening 3 % [facility] Total cell countOrdered By: Alexy Douglas on 01-25-2023 Cells counted Molgen (Bld/Tiss) [#] 2.037 10^3/ul 0.000-0.00 0 [facility] Comment on above: This is the Total Nu mber of Nucleated Cell Types in the Body Fluid. Basophil percentageOrdered B y: Alexy Douglas on 01-14-2023 Basophil percentage 119 mg/dL 74-106 [facility] Basophil percentage 6.6 g/dL 6.4-8.2 [facility] Basophil percentage 0.30 mg/dL 0.20-1.00 [facility] Basophil percentage 141 mmol/L 136-145 [facility] Basophil percentage 4.1 mmol/L 3.5-5.1 [facility] Basophil percentage 105 mmol/L 98-107 [facility] Basophils (Bld) [#/Vol] 12.2 10*3/uL 4.4-11.0 [facility] Bilirubin [Mass/Vol] 0.30 mg/dL 0.20-1.00 [facility] Comment on above: For patients on eltr ombopag therapy, use of Dimension [place] TBIL is not recommended. Chloride [Moles/Vol] 105 mmol/L 98-107 [facility] Glucose [Mass/Vol] 119 mg/dL 74-[address] [facility] Comment on above: Fasting Glucose resu lt from 100 to 125 mg/dL suggests IMPAIRED HOMEOSTASIS per A.D.A. criteria. Potassium [Moles/Vol] 4.1 mmol/L 3.5-5.1 [facility] Protein [Mass/Vol] 6.6 g/dL 6.4-8.[address] [facility] Sodium [Moles/Vol] 141 mmol/L 136-[address] [facility] WBC (Bld) [#/Vol] 12.2 10*3/uL 4.4-11.0 [facility] Blood erythrocytes count (nu mber/volume)Ordered By: Alexy Douglas on 01-14-2023 RBC (Bld) [#/Vol] 4.45 10*6/uL 4.2-5.4 [facility] Blood hemoglobin measurement (mass/volume)Or[facility] By[facility] 01-14-[facility] Hemoglobin (Bld) [Mass/Vol] 13.2 g/dL 12.0-15. 0 [facility] Blood platelet mean volumeOr dered By: [facility] on 01-14-2023 Platelet mean volume (Bld) [Entitic vol] 10.9 fL 6.2-12.0 [facility] Determination of erythrocyte mean corpuscular volume (MCV)Ordered By: [facility] on 01-14-2023 MCV (RBC) [Entitic vol] 93.7 fL 81-99 [facility] Hematocrit Auto (Bld) [Volum e fraction]Ordered By: [facility] on 01-14-2023 Hematocrit (Bld) [Volume fraction] 41.7 % 37-47 [facility] Laboratory - Chemistry and C hemistry - challengeOrdered By: [facility] on 01-14-2023 ALP [Catalytic activity/Vol] 92 U/L 45-117 [facility] ALT [Catalytic activity/Vol] 18 U/L 13-56 [facility] CO2 [Moles/Vol] 32.0 mmol/L 21.0-32.0 [facility] Globulin (S) [Mass/Vol] 3.7 g/dL 2.2-4.2 [facility] Natriuretic peptide B (Bld) [Mass/Vol] 196.0 pg/mL 0-100 [facility] Urea nitrogen/Creatinine [Mass ratio] 21.8 mg/mg 10-20 [facility] Laboratory - Hematology and Cell countsOrdered By: [facility] on 01-14-2023 Erythrocyte distribution width (RBC) [Entitic vol] 48.8 fL 35.1-43.[address] [facility] Erythrocyte distribution width (RBC) [Ratio] 14.2 % 11.6-14.6 [facility] MCH (RBC) [Entitic mass] 29.7 pg 27.0-32.0 [facility] MCHC Auto (RBC) [Mass/Vol]Or dered By: [facility] on 01-14-2023 MCHC (RBC) [Mass/Vol] 31.7 g/dL 32-36 [facility] No Panel InformationOrdered By: Alexy Douglas on 01-14-2023 Estimated GFR (MDRD) Amer 49 mL/min >60 [facility] Comment on above: GFR Calc Estimated GFR (MDRD) Non-Af Amer 40 mL/min >60 [facility] Comment on above: Non- GFR Calc 29.7 pg 27.0-32.0 [facility] 14.2 % 11.6-14.6 [facility] 48.8 fl 35.1-43.9 [facility] 40 mL/min >60 [facility] 49 mL/min >60 [facility] 21.8 RATIO 10-20 [facility] 3.7 g/dL 2.2-4.2 [facility] 92 U/L 45-117 [facility] 18 U/L 13-56 [facility] 32.0 mmol/L 21.0-32.0 [facility] 196.0 pg/mL 0-100 [facility] Platelets bldOrdered By: Alexy Douglas on 01-14-2023 Platelets (Bld) [#/Vol] 312 10*3/uL 150-450 [facility] Serum or plasma albumin bob urement (mass/volume)Ordered By: Alexy Douglas on 01-14-2023 Albumin [Mass/Vol] 2.9 g/dL 3.2-5.[address] [facility] Serum or plasma albumin/glob ulin mass ratioOrdered By: Alexy Douglas on 01-14-2023 Albumin/Globulin [Mass ratio] 0.8 {ratio} 0.9-2.4 [facility] Serum or plasma calcium bob urement (mass/volume)Ordered By: Alexy Douglas on 01-14-2023 Calcium [Mass/Vol] 8.7 mg/dL 8.5-10.[address] [facility] Serum or plasma creatinine m easurement (mass/volume)Ordered By: Alexy Douglas on 01-14-2023 Creatinine [Mass/Vol] 1.33 mg/dL 0.55-1.02 [facility] Comment on above: The validity of the calculated GFR & GFRAA in patients over 70 years has not been determined. Clinical correlation is essential. Serum or plasma urea nitroge n measurement (mass/volume)Ordered By: Alexy Douglas on 01-14-2023 Urea nitrogen [Mass/Vol] 29 mg/dL 7-18 [facility] Thin prep Papanicolaou smear with manual screeningOrdered By: Alexy Douglas on 01-14-2023 Thin prep Papanicolaou smear with manual screening 12 U/L 15-37 [facility] Thin prep Papanicolaou smear with manual screening 4 5-15 [facility] Basophil percentageOrdered B y: Zenobia Marie on 12-12-2022 Basophil percentage 3.2 mg/dL 2.5-4.9 [facility] Basophil percentage 195 mg/dL 74-106 [facility] Basophil percentage 139 mmol/L 136-145 [facility] Basophil percentage 4.4 mmol/L 3.5-5.1 [facility] Basophil percentage 106 mmol/L 98-107 [facility] Chloride [Moles/Vol] 106 mmol/L 98-107 [facility] Glucose [Mass/Vol] 195 mg/dL 74-[address] [facility] Comment on above: Fasting Glucose resu lt greater than or equal to 126 mg/dL suggests DIABETES MELLITUS per A.D.A. criteria. Potassium [Moles/Vol] 4.4 mmol/L 3.5-5.1 [facility] Sodium [Moles/Vol] 139 mmol/L 136-[address] [facility] Laboratory - Chemistry and C hemistry - challengeOrdered By: Zenobia Marie on 12-12-2022 CO2 [Moles/Vol] 29.0 mmol/L 21.0-32.0 [facility] Urea nitrogen/Creatinine [Mass ratio] 17.7 mg/mg 01-04 [facility] No Panel InformationOrdered By: Zenobia Marie on 12-12-2022 Estimated GFR (MDRD) Amer 53 mL/min >60 [facility] Comment on above: GFR Calc Estimated GFR (MDRD) Non-Af Amer 44 mL/min >60 [facility] Comment on above: Non- GFR Calc 44 mL/min >60 [facility] 53 mL/min >60 [facility] 17.7 RATIO 01-04 [facility] 29.0 mmol/L 21.0-32.0 [facility] Serum or plasma albumin bob urement (mass/volume)Ordered By: Zenobia Marie on 12-12-2022 Albumin [Mass/Vol] 2.6 g/dL 3.2-5.[address] [facility] Serum or plasma calcium bob urement (mass/volume)Ordered By: Zenobia Marie on 12-12-2022 Calcium [Mass/Vol] 8.8 mg/dL 8.5-10.[address] [facility] Serum or plasma creatinine m easurement (mass/volume)Ordered By: Zenobia Marie on 12-12-2022 Creatinine [Mass/Vol] 1.24 mg/dL 0.55-1.02 [facility] Comment on above: The validity of the calculated GFR & GFRAA in patients over 70 years has not been determined. Clinical correlation is essential. Serum or plasma urea nitroge n measurement (mass/volume)Ordered By: Zenobia Marie on 12-12-2022 Urea nitrogen [Mass/Vol] 22 mg/dL 7-18 [facility] Urine creatinine measurement (mass/volume)Ordered By: Zenobia Marie on 12-12-2022 Creatinine (U) [Mass/Vol] 178.00 mg/dL NO RANGE EST. [facility] Urine protein measurement (m ass/volume)Ordered By: Zenobia Marie on 12-12-2022 Protein (U) [Mass/Vol] 397.6 mg/dL 0.0-11.8 [facility] Urine protein/creatinine mas s ratioOrdered By: Zenobia Marie on 12-12-2022 Protein/Creatinine (U) [Mass ratio] 2234 mg/g CRE 0-200 [facility] Laboratory - Chemistry and C hemistry - challengeOrdered By: Marc Portillo on 11-30-2022 Magnesium [Mass/Vol] 2.2 mg/dL 1.6-2.6 [facility] No Panel InformationOrdered By: Farrah Dahl on 11-30-2022 Nasal Screen MRSA/MSSA [facility] Nasal Screen MRSA/MSSA [facility] No Panel InformationOrdered By: Marc Portillo on 11-30-2022 2.2 mg/dL 1.6-2.6 [facility] Serum or plasma albumin bob urement (mass/volume)Ordered By: Farrah Dahl on 11-30-2022 Albumin [Mass/Vol] 2.9 g/dL 3.2-5.[address] [facility] Laboratory - Microbiology an d Antimicrobial susceptibilityOrdered By: Alexy Douglas on 11-26-2022 SARS-CoV-2 (COVID-19) RNA ROSINA+probe Ql (Unsp spec) [facility] SARS-CoV-2 (COVID-19) RNA ROSINA+probe Ql (Unsp spec) [facility] No Panel InformationOrdered By: Alexy Douglas on 11-26-2022 Influenza Types A,B Direct FA (JAMILA) [facility] Influenza Types A,B Direct FA (JAMILA) [facility] RSV Ag EIAOrdered By: Alexy rodriguez on 11-26-2022 RSV Ag Immune stain Ql (Tiss) [facility] RSV Ag Immune stain Ql (Tiss) [facility] Absolute lymphocyte countOrd ered By: Alexy Misael on 10-15-2022 Lymphocytes Auto (Unsp spec) [#/Vol] 1.60 10*3/uL 0.83-4.51 [facility] Basophil percentageOrdered B y: Alexy Misael on 10-15-2022 Basophils/100 WBC (Bld) 0.7 % 0-1 [facility] Bilirubin [Mass/Vol] 0.40 mg/dL 0.20-1.00 [facility] Comment on above: For patients on eltr ombopag therapy, use of Dimension [place] TBIL is not recommended. Chloride [Moles/Vol] 106 mmol/L 98-107 [facility] Eosinophils/100 WBC (Bld) 4.0 % 0-5 [facility] Glucose [Mass/Vol] 169 mg/dL 74-[address] [facility] Comment on above: Fasting Glucose resu lt greater than or equal to 126 mg/dL suggests DIABETES MELLITUS per A.D.A. criteria. Neutrophils (Bld) [#/Vol] 6.3 10*3/uL 2.0-7.7 [facility] Neutrophils/100 WBC (Bld) 70.9 % 47-70 [facility] Potassium [Moles/Vol] 4.2 mmol/L 3.5-5.1 [facility] Protein [Mass/Vol] 6.3 g/dL 6.4-8.[address] [facility] Sodium [Moles/Vol] 140 mmol/L 136-[address] [facility] WBC (Bld) [#/Vol] 8.9 10*3/uL 4.4-11.[address] [facility] Blood erythrocytes count (nu mber/volume)Ordered By: Alexy Douglas on 10-15-2022 RBC (Bld) [#/Vol] 4.45 10*6/uL 4.2-5.4 [facility] Blood hemoglobin measurement (mass/volume)Ordered By: Alexy Douglas on 10-15-2022 Hemoglobin (Bld) [Mass/Vol] 12.8 g/dL 12.0-15. 0 [facility] Blood lymphocytes/100 leukoc ytesOrdered By: Alexy Misael on 10-15-2022 Lymphocytes/100 WBC (Bld) 17.9 % 19-41 [facility] Blood monocytes/100 leukocyt esOrdered By: Alexy Douglas on 10-15-2022 Monocytes/100 WBC (Bld) 6.1 % 0-10 [facility] Blood platelet mean volumeOr dered By: Alexy Douglas on 10-15-2022 Platelet mean volume (Bld) [Entitic vol] 11.4 fL 6.2-12.0 [facility] Determination of erythrocyte mean corpuscular volume (MCV)Ordered By: Alexy Douglas on 10-15-2022 MCV (RBC) [Entitic vol] 91.7 fL 81-99 [facility] Hematocrit Auto (Bld) [Volum e fraction]Ordered By: Alexy Douglas on 10-15-2022 Hematocrit (Bld) [Volume fraction] 40.8 % 37-47 [facility] Laboratory - Chemistry and C hemistry - challengeOrdered By: Alexy Misael on 10-15-2022 ALP [Catalytic activity/Vol] 104 U/L 45-117 [facility] ALT [Catalytic activity/Vol] 11 U/L 13-56 [facility] CO2 [Moles/Vol] 29.0 mmol/L 21.0-32.0 [facility] Globulin (S) [Mass/Vol] 3.4 g/dL 2.2-4.2 [facility] Urea nitrogen/Creatinine [Mass ratio] 18.3 mg/mg 10-20 [facility] Laboratory - Hematology and Cell countsOrdered By: Alexy Douglas on 10-15-2022 Erythrocyte distribution width (RBC) [Entitic vol] 45.4 fL 35.1-43.[address] [facility] Erythrocyte distribution width (RBC) [Ratio] 13.4 % 11.6-14.6 [facility] Immature granulocytes/100 WBC (Bld) 0.400 % 0.0-0.9 [facility] Comment on above: IG% - Immature Granu locytes (promyelocytes, myelocytes and metamyelocytes) > 1% indicates that a LEFT SHIFT is Present. MCH (RBC) [Entitic mass] 28.8 pg 27.0-32.0 [facility] Nucleated RBC/100 WBC (Bld) [Ratio] 0 % 0-5 [facility] MCHC Auto (RBC) [Mass/Vol]Or dered By: Alexy Douglas on 10-15-2022 MCHC (RBC) [Mass/Vol] 31.4 g/dL 32-36 [facility] No Panel InformationOrdered By: Alexy Douglas on 10-15-2022 Estimated GFR (MDRD) Amer 37 mL/min >60 [facility] Comment on above: GFR Calc Estimated GFR (MDRD) Non-Af Amer 31 mL/min >60 [facility] Comment on above: Non- GFR Calc Thyroid Stimulating Hormone (TSH) 2.92 uIU/mL 0.358-3.74 [facility] Vitamin D 25-Hydroxy 36.5 ng/mL [facility] Comment on above: Vitamin D 25(OH) Sta tus Range Deficiency <20 ng/mL (50nmol/L) Insufficiency 20 - 30 ng/mL (50 - 75 nmol/L) Sufficiency 30 - 100 ng/mL (75 - 250 nmol/L) Toxicity >100 ng/mL (>250 nmol/L) Platelets bldOrdered By: Alexy Douglas on 10-15-2022 Platelets (Bld) [#/Vol] 258 10*3/uL 150-450 [facility] Serum or plasma albumin bob urement (mass/volume)Ordered By: Alexy Douglas on 10-15-2022 Albumin [Mass/Vol] 2.9 g/dL 3.2-5.[address] [facility] Serum or plasma albumin/glob ulin mass ratioOrdered By: Alexy Douglas on 10-15-2022 Albumin/Globulin [Mass ratio] 0.9 {ratio} 0.9-2.4 [facility] Serum or plasma calcium bob urement (mass/volume)Ordered By: Alexy Douglas on 10-15-2022 Calcium [Mass/Vol] 8.7 mg/dL 8.5-10.[address] [facility] Serum or plasma creatinine m easurement (mass/volume)Ordered By: Alexy Douglas on 10-15-2022 Creatinine [Mass/Vol] 1.69 mg/dL 0.55-1.02 [facility] Comment on above: The validity of the calculated GFR & GFRAA in patients over 70 years has not been determined. Clinical correlation is essential. Serum or plasma urea nitroge n measurement (mass/volume)Ordered By: Alexy Douglas on 10-15-2022 Urea nitrogen [Mass/Vol] 31 mg/dL 7-18 [facility] Thin prep Papanicolaou smear with manual screeningOrdered By: Alexy Douglas on 10-15-2022 Thin prep Papanicolaou smear with manual screening 11 U/L 15-37 [facility] Thin prep Papanicolaou smear with manual screening 5 5-15 [facility] Whole blood hemoglobin A1c/t otal hemoglobin ratio (mass fraction)Ordered By: Alexy Douglas on 10-15-2022 HbA1c (Bld) [Mass fraction] 6.9 % 3.8-5.6 [facility] Comment on above: Normal < 5.7 % Predi abetic 5.7 - 6.4 % Diabetic >or= 6.5 % Please note range changes. Absolute lymphocyte countOrd ered By: Alexy Douglas on 10-08-2022 Lymphocytes Auto (Unsp spec) [#/Vol] 1.58 10*3/uL 0.83-4.51 [facility] Basophil percentageOrdered B y: Alexy Douglas on 10-08-2022 Basophils/100 WBC (Bld) 0.6 % 0-1 [facility] Bilirubin [Mass/Vol] 0.30 mg/dL 0.20-1.00 [facility] Comment on above: For patients on eltr ombopag therapy, use of Dimension [place] TBIL is not recommended. Chloride [Moles/Vol] 108 mmol/L 98-107 [facility] Eosinophils/100 WBC (Bld) 3.1 % 0-5 [facility] Glucose [Mass/Vol] 124 mg/dL 74-[address] [facility] Comment on above: Fasting Glucose resu lt from 100 to 125 mg/dL suggests IMPAIRED HOMEOSTASIS per A.D.A. criteria. Neutrophils (Bld) [#/Vol] 7.1 10*3/uL 2.0-7.7 [facility] Neutrophils/100 WBC (Bld) 72.7 % 47-70 [facility] Potassium [Moles/Vol] 4.3 mmol/L 3.5-5.1 [facility] Protein [Mass/Vol] 6.4 g/dL 6.4-8.[address] [facility] Sodium [Moles/Vol] 141 mmol/L 136-[address] [facility] WBC (Bld) [#/Vol] 9.7 10*3/uL 4.4-11.[address] [facility] Blood erythrocytes count (nu mber/volume)Ordered By: Alexy Douglas on 10-08-2022 RBC (Bld) [#/Vol] 4.48 10*6/uL 4.2-5.4 [facility] Blood hemoglobin measurement (mass/volume)Ordered By: Alexy Douglas on 10-08-2022 Hemoglobin (Bld) [Mass/Vol] 12.7 g/dL 12.0-15. 0 [facility] Blood lymphocytes/100 leukoc ytesOrdered By: Alexy Douglas on 10-08-2022 Lymphocytes/100 WBC (Bld) 16.3 % 19-41 [facility] Blood monocytes/100 leukocyt esOrdered By: Alexy Douglas on 10-08-2022 Monocytes/100 WBC (Bld) 6.8 % 0-10 [facility] Blood platelet mean volumeOr dered By: Alexy Douglas on 10-08-2022 Platelet mean volume (Bld) [Entitic vol] 11.7 fL 6.2-12.0 [facility] Determination of erythrocyte mean corpuscular volume (MCV)Ordered By: Alexy Douglas on 10-08-2022 MCV (RBC) [Entitic vol] 93.8 fL 81-99 [facility] Hematocrit Auto (Bld) [Volum e fraction]Ordered By: Alexy Douglas on 10-08-2022 Hematocrit (Bld) [Volume fraction] 42.0 % 37-47 [facility] INR in Blood by Coagulation assayOrdered By: Alexy Douglas on 10-08-2022 INR Coag (Bld) [Relative time] 1.0 {INR} [facility] Laboratory - Chemistry and C hemistry - challengeOrdered By: Alexy Misael on 10-08-2022 ALP [Catalytic activity/Vol] 100 U/L 45-117 [facility] ALT [Catalytic activity/Vol] 13 U/L 13-56 [facility] CO2 [Moles/Vol] 29.0 mmol/L 21.0-32.0 [facility] Globulin (S) [Mass/Vol] 3.3 g/dL 2.2-4.2 [facility] Urea nitrogen/Creatinine [Mass ratio] 16.4 mg/mg 10-20 [facility] Laboratory - CoagulationOrde red By: Alexy Douglas on 10-08-2022 aPTT Coag (Bld) [Time] 25.7 s 24.1-36.2 [facility] PT Coag (PPP) [Time] 13.4 s 11.7-14.9 [facility] Laboratory - Hematology and Cell countsOrdered By: Alexy Douglas 10-08-2022 Erythrocyte distribution width (RBC) [Entitic vol] 46.0 fL 35.1-43.[address] [facility] Erythrocyte distribution width (RBC) [Ratio] 13.5 % 11.6-14.6 [facility] Immature granulocytes/100 WBC (Bld) 0.500 % 0.0-0.9 [facility] Comment on above: IG% - Immature Granu locytes (promyelocytes, myelocytes and metamyelocytes) > 1% indicates that a LEFT SHIFT is Present. MCH (RBC) [Entitic mass] 28.3 pg 27.0-32.0 [facility] Nucleated RBC/100 WBC (Bld) [Ratio] 0 % 0-5 [facility] MCHC Auto (RBC) [Mass/Vol]Or dered By: Alexy Douglas on 10-08-2022 MCHC (RBC) [Mass/Vol] 30.2 g/dL 32-36 [facility] No Panel InformationOrdered By: Alexy Douglas on 10-08-2022 Estimated GFR (MDRD) Amer 44 mL/min >60 [facility] Comment on above: GFR Calc Estimated GFR (MDRD) Non-Af Amer 36 mL/min >60 [facility] Comment on above: Non- GFR Calc Platelets bldOrdered By: Alexy Douglas on 10-08-2022 Platelets (Bld) [#/Vol] 260 10*3/uL 150-450 [facility] Serum or plasma albumin bob urement (mass/volume)Ordered By: Alexy Douglas on 10-08-2022 Albumin [Mass/Vol] 3.1 g/dL 3.2-5.[address] [facility] Serum or plasma albumin/glob ulin mass ratioOrdered By: Alexy Douglas on 10-08-2022 Albumin/Globulin [Mass ratio] 0.9 {ratio} 0.9-2.4 [facility] Serum or plasma calcium bob urement (mass/volume)Ordered By: Alexy Douglas on 10-08-2022 Calcium [Mass/Vol] 8.8 mg/dL 8.5-10.[address] [facility] Serum or plasma creatinine m easurement (mass/volume)Ordered By: Alexy Douglas on 10-08-2022 Creatinine [Mass/Vol] 1.46 mg/dL 0.55-1.02 [facility] Comment on above: The validity of the calculated GFR & GFRAA in patients over 70 years has not been determined. Clinical correlation is essential. Serum or plasma urea nitroge n measurement (mass/volume)Ordered By: Alexy Douglas on 10-08-2022 Urea nitrogen [Mass/Vol] 24 mg/dL 7-18 [facility] Thin prep Papanicolaou smear with manual screeningOrdered By: Alexy Douglas on 10-08-2022 Thin prep Papanicolaou smear with manual screening 11 U/L 15-37 [facility] Thin prep Papanicolaou smear with manual screening 4 5-15 [facility] Absolute lymphocyte countOrd ered By: Dr. Marie on 07-16-2022 Lymphocytes Auto (Unsp spec) [#/Vol] 2.12 10*3/uL 0.83-4.51 [facility] Basophil percentageOrdered B y: Dr. Marie on 07-16-2022 Basophil percentage 3.4 mg/dL 2.5-4.9 [facility] Basophils/100 WBC (Bld) 0.5 % 0-1 [facility] Bilirubin [Mass/Vol] 0.50 mg/dL 0.20-1.00 [facility] Comment on above: For patients on eltr ombopag therapy, use of Dimension [place] TBIL is not recommended. Chloride [Moles/Vol] 106 mmol/L 98-107 [facility] Eosinophils/100 WBC (Bld) 3.1 % 0-5 [facility] Glucose [Mass/Vol] 170 mg/dL 74-[address] [facility] Comment on above: Fasting Glucose resu lt greater than or equal to 126 mg/dL suggests DIABETES MELLITUS per A.D.A. criteria. Neutrophils (Bld) [#/Vol] 8.8 10*3/uL 2.0-7.7 [facility] Neutrophils/100 WBC (Bld) 71.9 % 47-70 [facility] Potassium [Moles/Vol] 3.9 mmol/L 3.5-5.1 [facility] Protein [Mass/Vol] 6.8 g/dL 6.4-8.[address] [facility] Sodium [Moles/Vol] 143 mmol/L 136-[address] [facility] WBC (Bld) [#/Vol] 12.3 10*3/uL 4.4-11.0 [facility] Blood erythrocytes count (nu mber/volume)Ordered By: Dr. Marie on 07-16-2022 RBC (Bld) [#/Vol] 4.56 10*6/uL 4.2-5.4 [facility] Blood hemoglobin measurement (mass/volume)Ordered By: Dr. Marie on 07-16-2022 Hemoglobin (Bld) [Mass/Vol] 12.9 g/dL 12.0-15. 0 [facility] Blood lymphocytes/100 leukoc ytesOrdered By: Dr. Marie on 07-16-2022 Lymphocytes/100 WBC (Bld) 17.3 % 19-41 [facility] Blood monocytes/100 leukocyt esOrdered By: Dr. Marie on 07-16-2022 Monocytes/100 WBC (Bld) 6.4 % 0-10 [facility] Blood platelet mean volumeOr dered By: Dr. Marie on 07-16-2022 Platelet mean volume (Bld) [Entitic vol] 11.1 fL 6.2-12.0 [facility] Determination of erythrocyte mean corpuscular volume (MCV)Ordered By: Dr. Marie on 07-16-2022 MCV (RBC) [Entitic vol] 92.8 fL 81-99 [facility] Hematocrit Auto (Bld) [Volum e fraction]Ordered By: Dr. Marie on 07-16-2022 Hematocrit (Bld) [Volume fraction] 42.3 % 37-47 [facility] Laboratory - Chemistry and C hemistry - challengeOrdered By: Dr. Marie on 07-16-2022 ALP [Catalytic activity/Vol] 100 U/L 45-117 [facility] ALT [Catalytic activity/Vol] 16 U/L 13-56 [facility] CO2 [Moles/Vol] 30.0 mmol/L 21.0-32.0 [facility] Globulin (S) [Mass/Vol] 3.8 g/dL 2.2-4.2 [facility] Urea nitrogen/Creatinine [Mass ratio] 18.1 mg/mg 10-20 [facility] Laboratory - Hematology and Cell countsOrdered By: Dr. Marie on 07-16-2022 Erythrocyte distribution width (RBC) [Entitic vol] 49.8 fL 35.1-43.[address] [facility] Erythrocyte distribution width (RBC) [Ratio] 14.6 % 11.6-14.6 [facility] Immature granulocytes/100 WBC (Bld) 0.800 % 0.0-0.9 [facility] Comment on above: IG% - Immature Granu locytes (promyelocytes, myelocytes and metamyelocytes) > 1% indicates that a LEFT SHIFT is Present. MCH (RBC) [Entitic mass] 28.3 pg 27.0-32.0 [facility] Nucleated RBC/100 WBC (Bld) [Ratio] 0 % 0-5 [facility] MCHC Auto (RBC) [Mass/Vol]Or dered By: Dr. Marie on 07-16-2022 MCHC (RBC) [Mass/Vol] 30.5 g/dL 32-36 [facility] No Panel InformationOrdered By: Dr. Marie on 07-16-2022 Estimated GFR (MDRD) Amer 52 mL/min >60 [facility] Comment on above: GFR Calc Estimated GFR (MDRD) Non-Af Amer 43 mL/min >60 [facility] Comment on above: Non- GFR Calc Parathyroid Hormone (Intact) 113.8 pg/mL 18.4-80.1 [facility] Thyroid Stimulating Hormone (TSH) 2.58 uIU/mL 0.358-3.74 [facility] Vitamin D 25-Hydroxy 54.2 ng/mL [facility] Comment on above: Vitamin D 25(OH) Sta tus Range Deficiency <20 ng/mL (50nmol/L) Insufficiency 20 - 30 ng/mL (50 - 75 nmol/L) Sufficiency 30 - 100 ng/mL (75 - 250 nmol/L) Toxicity >100 ng/mL (>250 nmol/L) Platelets bldOrdered By: Dr. Marie on 07-16-2022 Platelets (Bld) [#/Vol] 314 10*3/uL 150-450 [facility] Serum or plasma albumin bob urement (mass/volume)Ordered By: Dr. Marie on 07-16-2022 Albumin [Mass/Vol] 3.0 g/dL 3.2-5.[address] [facility] Serum or plasma albumin/glob ulin mass ratioOrdered By: Dr. Marie on 07-16-2022 Albumin/Globulin [Mass ratio] 0.8 {ratio} 0.9-2.4 [facility] Serum or plasma calcium bob urement (mass/volume)Ordered By: Dr. Marie on 07-16-2022 Calcium [Mass/Vol] 9.0 mg/dL 8.5-10.[address] [facility] Serum or plasma creatinine m easurement (mass/volume)Ordered By: Dr. Marie on 07-16-2022 Creatinine [Mass/Vol] 1.27 mg/dL 0.55-1.02 [facility] Comment on above: The validity of the calculated GFR & GFRAA in patients over 70 years has not been determined. Clinical correlation is essential. Serum or plasma urea nitroge n measurement (mass/volume)Ordered By: Dr. Marie on 07-16-2022 Urea nitrogen [Mass/Vol] 23 mg/dL 7-18 [facility] Thin prep Papanicolaou smear with manual screeningOrdered By: Dr. Marie on 07-16-2022 Thin prep Papanicolaou smear with manual screening 11 U/L 15-37 [facility] Thin prep Papanicolaou smear with manual screening 7 5-15 [facility] Urine creatinine measurement (mass/volume)Ordered By: Dr. Marie on 07-16-2022 Creatinine (U) [Mass/Vol] 123.00 mg/dL NO RANGE EST. [facility] Urine protein measurement (m ass/volume)Ordered By: Dr. Marie on 07-16-2022 Protein (U) [Mass/Vol] 260.9 mg/dL 0.0-11.8 [facility] Urine protein/creatinine mas s ratioOrdered By: Dr. Marie on 07-16-2022 Protein/Creatinine (U) [Mass ratio] 2121 mg/g CRE 0-200 [facility] Basophil percentageOrdered B y: Alexy Douglas on 05-18-2022 Chloride [Moles/Vol] 104 mmol/L 98-107 [facility] Glucose [Mass/Vol] 185 mg/dL 74-[address] [facility] Comment on above: Fasting Glucose resu lt greater than or equal to 126 mg/dL suggests DIABETES MELLITUS per A.D.A. criteria. Potassium [Moles/Vol] 4.0 mmol/L 3.5-5.1 [facility] Sodium [Moles/Vol] 139 mmol/L 136-[address] [facility] Laboratory - Chemistry and C hemistry - challengeOrdered By: Alexy Douglas on 05-18-2022 CO2 [Moles/Vol] 27.0 mmol/L 21.0-32.0 [facility] Urea nitrogen/Creatinine [Mass ratio] 21.3 mg/mg 10-20 [facility] No Panel InformationOrdered By: Alexy Douglas on 05-18-2022 Estimated GFR (MDRD) Amer 43 mL/min >60 [facility] Comment on above: GFR Calc Estimated GFR (MDRD) Non-Af Amer 35 mL/min >60 [facility] Comment on above: Non- GFR Calc Serum or plasma calcium bob urement (mass/volume)Ordered By: Alexy Douglas on 05-18-2022 Calcium [Mass/Vol] 9.2 mg/dL 8.5-10.[address] [facility] Serum or plasma creatinine m easurement (mass/volume)Ordered By: Alexy Douglas on 05-18-2022 Creatinine [Mass/Vol] 1.50 mg/dL 0.55-1.02 [facility] Comment on above: The validity of the calculated GFR & GFRAA in patients over 70 years has not been determined. Clinical correlation is essential. Serum or plasma urea nitroge n measurement (mass/volume)Ordered By: Alexy Douglas on 05-18-2022 Urea nitrogen [Mass/Vol] 32 mg/dL 7-18 [facility] Thin prep Papanicolaou smear with manual screeningOrdered By: Alexy Douglas on 05-18-2022 Thin prep Papanicolaou smear with manual screening 8 5-15 [facility] Basophil percentageOrdered B y: Alexy Douglas on 05-14-2022 Chloride [Moles/Vol] 105 mmol/L 98-107 [facility] Glucose [Mass/Vol] 165 mg/dL 74-[address] [facility] Comment on above: Fasting Glucose resu lt greater than or equal to 126 mg/dL suggests DIABETES MELLITUS per A.D.A. criteria. Potassium [Moles/Vol] 4.1 mmol/L 3.5-5.1 [facility] Sodium [Moles/Vol] 140 mmol/L 136-[address] [facility] Laboratory - Chemistry and C hemistry - challengeOrdered By: Alexy Douglas on 05-14-2022 CO2 [Moles/Vol] 31.0 mmol/L 21.0-32.0 [facility] Urea nitrogen/Creatinine [Mass ratio] 16.5 mg/mg 10-20 [facility] No Panel InformationOrdered By: Alexy Douglas on 05-14-2022 Estimated GFR (MDRD) Amer 35 mL/min >60 [facility] Comment on above: GFR Calc Estimated GFR (MDRD) Non-Af Amer 29 mL/min >60 [facility] Comment on above: Non- GFR Calc Serum or plasma calcium bob urement (mass/volume)Ordered By: Alexy Dogulas on 05-14-2022 Calcium [Mass/Vol] 9.1 mg/dL 8.5-10.[address] [facility] Serum or plasma creatinine m easurement (mass/volume)Ordered By: Alexy Douglas on 05-14-2022 Creatinine [Mass/Vol] 1.76 mg/dL 0.55-1.02 [facility] Comment on above: The validity of the calculated GFR & GFRAA in patients over 70 years has not been determined. Clinical correlation is essential. Serum or plasma urea nitroge n measurement (mass/volume)Ordered By: Alexy Douglas on 05-14-2022 Urea nitrogen [Mass/Vol] 29 mg/dL 7-18 [facility] Thin prep Papanicolaou smear with manual screeningOrdered By: Alexy Douglas on 05-14-2022 Thin prep Papanicolaou smear with manual screening 4 5-15 [facility] Absolute lymphocyte countOrd ered By: Dr. Douglas on 05-11-2022 Lymphocytes Auto (Unsp spec) [#/Vol] 1.62 10*3/uL 0.83-4.51 [facility] Basophil percentageOrdered B y: Dr. Douglas on 05-11-2022 Basophils/100 WBC (Bld) 0.5 % 0-1 [facility] Bilirubin [Mass/Vol] 0.40 mg/dL 0.20-1.00 [facility] Comment on above: For patients on eltr ombopag therapy, use of Dimension [place] TBIL is not recommended. Chloride [Moles/Vol] 107 mmol/L 98-107 [facility] Eosinophils/100 WBC (Bld) 2.9 % 0-5 [facility] Glucose [Mass/Vol] 243 mg/dL 74-[address] [facility] Comment on above: Glucose result great er than or equal to 200 mg/dLsuggests DIABETES MELLITUS per A.D.A. criteria. Neutrophils (Bld) [#/Vol] 7.2 10*3/uL 2.0-7.7 [facility] Neutrophils/100 WBC (Bld) 73.6 % 47-70 [facility] Potassium [Moles/Vol] 3.8 mmol/L 3.5-5.1 [facility] Protein [Mass/Vol] 6.4 g/dL 6.4-8.[address] [facility] Sodium [Moles/Vol] 143 mmol/L 136-[address] [facility] WBC (Bld) [#/Vol] 9.8 10*3/uL 4.4-11.[address] [facility] Blood erythrocytes count (nu mber/volume)Ordered By: Dr. Douglas on 05-11-2022 RBC (Bld) [#/Vol] 4.18 10*6/uL 4.2-5.4 [facility] Blood hemoglobin measurement (mass/volume)Ordered By: Dr. Douglas on 05-11-2022 Hemoglobin (Bld) [Mass/Vol] 11.8 g/dL 12.0-15. 0 [facility] Blood lymphocytes/100 leukoc ytesOrdered By: Dr. Douglas on 05-11-2022 Lymphocytes/100 WBC (Bld) 16.6 % 19-41 [facility] Blood monocytes/100 leukocyt esOrdered By: Dr. Douglas on 05-11-2022 Monocytes/100 WBC (Bld) 6.0 % 0-10 [facility] Blood platelet mean volumeOr dered By: Dr. Douglas on 05-11-2022 Platelet mean volume (Bld) [Entitic vol] 11.7 fL 6.2-12.0 [facility] Determination of erythrocyte mean corpuscular volume (MCV)Ordered By: Dr. Douglas on 05-11-2022 MCV (RBC) [Entitic vol] 89.5 fL 81-99 [facility] Hematocrit Auto (Bld) [Volum e fraction]Ordered By: Dr. Douglas on 05-11-2022 Hematocrit (Bld) [Volume fraction] 37.4 % 37-47 [facility] Laboratory - Chemistry and C hemistry - challengeOrdered By: Dr. Douglas on 05-11-2022 ALP [Catalytic activity/Vol] 90 U/L 45-117 [facility] ALT [Catalytic activity/Vol] 12 U/L 13-56 [facility] CO2 [Moles/Vol] 29.0 mmol/L 21.0-32.0 [facility] Globulin (S) [Mass/Vol] 3.5 g/dL 2.2-4.2 [facility] Natriuretic peptide B (Bld) [Mass/Vol] 238.1 pg/mL 0-100 [facility] Urea nitrogen/Creatinine [Mass ratio] 20.9 mg/mg 10-20 [facility] Laboratory - Hematology and Cell countsOrdered By: Dr. Douglas on 05-11-2022 Erythrocyte distribution width (RBC) [Entitic vol] 47.5 fL 35.1-43.[address] [facility] Erythrocyte distribution width (RBC) [Ratio] 14.6 % 11.6-14.6 [facility] Immature granulocytes/100 WBC (Bld) 0.400 % 0.0-0.9 [facility] Comment on above: IG% - Immature Granu locytes (promyelocytes, myelocytes and metamyelocytes) > 1% indicates that a LEFT SHIFT is Present. MCH (RBC) [Entitic mass] 28.2 pg 27.0-32.0 [facility] Nucleated RBC/100 WBC (Bld) [Ratio] 0 % 0-5 [facility] MCHC Auto (RBC) [Mass/Vol]Or dered By: Dr. Dogulas on 05-11-2022 MCHC (RBC) [Mass/Vol] 31.6 g/dL 32-36 [facility] No Panel InformationOrdered By: Dr. Douglas on 05-11-2022 Estimated GFR (MDRD) Amer 47 mL/min >60 [facility] Comment on above: GFR Calc Estimated GFR (MDRD) Non-Af Amer 39 mL/min >60 [facility] Comment on above: Non- GFR Calc Thyroid Stimulating Hormone (TSH) 0.56 uIU/mL 0.358-3.74 [facility] Platelets bldOrdered By: Dr. Douglas on 05-11-2022 Platelets (Bld) [#/Vol] 265 10*3/uL 150-450 [facility] Serum or plasma albumin bob urement (mass/volume)Ordered By: Dr. Douglas on 05-11-2022 Albumin [Mass/Vol] 2.9 g/dL 3.2-5.[address] [facility] Serum or plasma albumin/glob ulin mass ratioOrdered By: Dr. Douglas on 05-11-2022 Albumin/Globulin [Mass ratio] 0.8 {ratio} 0.9-2.4 [facility] Serum or plasma calcium bob urement (mass/volume)Ordered By: Dr. Douglas on 05-11-2022 Calcium [Mass/Vol] 9.1 mg/dL 8.5-10.[address] [facility] Serum or plasma creatinine m easurement (mass/volume)Ordered By: Dr. Douglas on 05-11-2022 Creatinine [Mass/Vol] 1.39 mg/dL 0.55-1.02 [facility] Comment on above: The validity of the calculated GFR & GFRAA in patients over 70 years has not been determined. Clinical correlation is essential. Serum or plasma urea nitroge n measurement (mass/volume)Ordered By: Dr. Douglas on 05-11-2022 Urea nitrogen [Mass/Vol] 29 mg/dL 7-18 [facility] Thin prep Papanicolaou smear with manual screeningOrdered By: Dr. Dogulas on 05-11-2022 Thin prep Papanicolaou smear with manual screening 7 U/L 15-37 [facility] Thin prep Papanicolaou smear with manual screening 7 5-15 [facility] Basophil percentageOrdered B y: Alexy Douglas on 05-02-2022 Chloride [Moles/Vol] 107 mmol/L 98-107 [facility] Glucose [Mass/Vol] 131 mg/dL 74-[address] [facility] Comment on above: Fasting Glucose resu lt greater than or equal to 126 mg/dL suggests DIABETES MELLITUS per A.D.A. criteria. Potassium [Moles/Vol] 3.5 mmol/L 3.5-5.1 [facility] Sodium [Moles/Vol] 143 mmol/L 136-[address] [facility] Laboratory - Chemistry and C hemistry - challengeOrdered By: Alexy Douglas on 05-02-2022 CO2 [Moles/Vol] 31.0 mmol/L 21.0-32.0 [facility] Urea nitrogen/Creatinine [Mass ratio] 16.8 mg/mg 10-20 [facility] No Panel InformationOrdered By: Alexy Douglas on 05-02-2022 Estimated GFR (MDRD) Amer 38 mL/min >60 [facility] Comment on above: GFR Calc Estimated GFR (MDRD) Non-Af Amer 31 mL/min >60 [facility] Comment on above: Non- GFR Calc Serum or plasma calcium bob urement (mass/volume)Ordered By: Alexy Douglas on 05-02-2022 Calcium [Mass/Vol] 9.1 mg/dL 8.5-10.[address] [facility] Serum or plasma creatinine m easurement (mass/volume)Ordered By: Alexy Douglas on 05-02-2022 Creatinine [Mass/Vol] 1.67 mg/dL 0.55-1.02 [facility] Comment on above: The validity of the calculated GFR & GFRAA in patients over 70 years has not been determined. Clinical correlation is essential. Serum or plasma urea nitroge n measurement (mass/volume)Ordered By: Alexy Douglas on 05-02-2022 Urea nitrogen [Mass/Vol] 28 mg/dL 7-18 [facility] Thin prep Papanicolaou smear with manual screeningOrdered By: Alexy Douglas on 05-02-2022 Thin prep Papanicolaou smear with manual screening 5 5-15 [facility] Absolute lymphocyte countOrd ered By: Dr. Douglas on 04-18-2022 Lymphocytes Auto (Unsp spec) [#/Vol] 3.04 10*3/uL 0.83-4.51 [facility] Basophil percentageOrdered B y: Dr. Douglas on 04-18-2022 Basophils/100 WBC (Bld) 0.6 % 0-1 [facility] Bilirubin [Mass/Vol] 0.60 mg/dL 0.20-1.00 [facility] Comment on above: For patients on eltr ombopag therapy, use of Dimension [place] TBIL is not recommended. Chloride [Moles/Vol] 104 mmol/L 98-107 [facility] Eosinophils/100 WBC (Bld) 1.4 % 0-5 [facility] Glucose [Mass/Vol] 80 mg/dL 74-[address] [facility] Neutrophils (Bld) [#/Vol] 8.5 10*3/uL 2.0-7.7 [facility] Neutrophils/100 WBC (Bld) 66.7 % 47-70 [facility] Potassium [Moles/Vol] 3.7 mmol/L 3.5-5.1 [facility] Protein [Mass/Vol] 7.4 g/dL 6.4-8.[address] [facility] Sodium [Moles/Vol] 142 mmol/L 136-[address] [facility] WBC (Bld) [#/Vol] 12.8 10*3/uL 4.4-11.0 [facility] Blood erythrocytes count (nu mber/volume)Ordered By: Dr. Douglas on 04-18-2022 RBC (Bld) [#/Vol] 4.61 10*6/uL 4.2-5.4 [facility] Blood hemoglobin measurement (mass/volume)Ordered By: Dr. Douglas on 04-18-2022 Hemoglobin (Bld) [Mass/Vol] 12.9 g/dL 12.0-15. 0 [facility] Blood lymphocytes/100 leukoc ytesOrdered By: Dr. Douglas on 04-18-2022 Lymphocytes/100 WBC (Bld) 23.8 % 19-41 [facility] Blood monocytes/100 leukocyt esOrdered By: Dr. Douglas on 04-18-2022 Monocytes/100 WBC (Bld) 6.9 % 0-10 [facility] Blood platelet mean volumeOr dered By: Dr. Douglas on 04-18-2022 Platelet mean volume (Bld) [Entitic vol] 11.3 fL 6.2-12.0 [facility] Determination of erythrocyte mean corpuscular volume (MCV)Ordered By: Dr. Douglas on 04-18-2022 MCV (RBC) [Entitic vol] 88.7 fL 81-99 [facility] Hematocrit Auto (Bld) [Volum e fraction]Ordered By: Dr. Douglas on 04-18-2022 Hematocrit (Bld) [Volume fraction] 40.9 % 37-47 [facility] Laboratory - Chemistry and C hemistry - challengeOrdered By: Dr. Douglas on 04-18-2022 ALP [Catalytic activity/Vol] 105 U/L 45-117 [facility] ALT [Catalytic activity/Vol] 16 U/L 13-56 [facility] CO2 [Moles/Vol] 30.0 mmol/L 21.0-32.0 [facility] Globulin (S) [Mass/Vol] 4.1 g/dL 2.2-4.2 [facility] Urea nitrogen/Creatinine [Mass ratio] 16.7 mg/mg 10-20 [facility] Laboratory - Hematology and Cell countsOrdered By: Dr. Douglas on 04-18-2022 Erythrocyte distribution width (RBC) [Entitic vol] 47.6 fL 35.1-43.[address] [facility] Erythrocyte distribution width (RBC) [Ratio] 14.8 % 11.6-14.6 [facility] Immature granulocytes/100 WBC (Bld) 0.600 % 0.0-0.9 [facility] Comment on above: IG% - Immature Granu locytes (promyelocytes, myelocytes and metamyelocytes) > 1% indicates that a LEFT SHIFT is Present. MCH (RBC) [Entitic mass] 28.0 pg 27.0-32.0 [facility] Nucleated RBC/100 WBC (Bld) [Ratio] 0 % 0-5 [facility] MCHC Auto (RBC) [Mass/Vol]Or dered By: Dr. Douglas on 04-18-2022 MCHC (RBC) [Mass/Vol] 31.5 g/dL 32-36 [facility] No Panel InformationOrdered By: Dr. Douglas on 04-18-2022 Estimated GFR (MDRD) Amer 47 mL/min >60 [facility] Comment on above: GFR Calc Estimated GFR (MDRD) Non-Af Amer 39 mL/min >60 [facility] Comment on above: Non- GFR Calc Vitamin D 25-Hydroxy 42.2 ng/mL [facility] Comment on above: Vitamin D 25(OH) Sta tus Range Deficiency <20 ng/mL (50nmol/L) Insufficiency 20 - 30 ng/mL (50 - 75 nmol/L) Sufficiency 30 - 100 ng/mL (75 - 250 nmol/L) Toxicity >100 ng/mL (>250 nmol/L) Platelets bldOrdered By: Dr. Douglas on 04-18-2022 Platelets (Bld) [#/Vol] 335 10*3/uL 150-450 [facility] Serum or plasma albumin bob urement (mass/volume)Ordered By: Dr. Douglas on 04-18-2022 Albumin [Mass/Vol] 3.3 g/dL 3.2-5.[address] [facility] Serum or plasma albumin/glob ulin mass ratioOrdered By: Dr. Douglas on 04-18-2022 Albumin/Globulin [Mass ratio] 0.8 {ratio} 0.9-2.4 [facility] Serum or plasma calcium bob urement (mass/volume)Ordered By: Dr. Douglas on 04-18-2022 Calcium [Mass/Vol] 9.2 mg/dL 8.5-10.[address] [facility] Serum or plasma creatinine m easurement (mass/volume)Ordered By: Dr. Douglas on 04-18-2022 Creatinine [Mass/Vol] 1.38 mg/dL 0.55-1.02 [facility] Comment on above: The validity of the calculated GFR & GFRAA in patients over 70 years has not been determined. Clinical correlation is essential. Serum or plasma urea nitroge n measurement (mass/volume)Ordered By: Dr. Douglas on 04-18-2022 Urea nitrogen [Mass/Vol] 23 mg/dL 7-18 [facility] Thin prep Papanicolaou smear with manual screeningOrdered By: Dr. Douglas on 04-18-2022 Thin prep Papanicolaou smear with manual screening 14 U/L 15-37 [facility] Thin prep Papanicolaou smear with manual screening 8 5-15 [facility] Absolute lymphocyte countOrd ered By: Mitali Hagen on 04-04-2022 Lymphocytes Auto (Unsp spec) [#/Vol] 1.65 10*3/uL 0.83-4.51 [facility] Basophil percentageOrdered B y: Mitali Hagen on 04-04-2022 Basophils/100 WBC (Bld) 0.3 % 0-1 [facility] Chloride [Moles/Vol] 107 mmol/L 98-107 [facility] Eosinophils/100 WBC (Bld) 2.4 % 0-5 [facility] Glucose [Mass/Vol] 165 mg/dL 74-[address] [facility] Comment on above: Fasting Glucose resu lt greater than or equal to 126 mg/dL suggests DIABETES MELLITUS per A.D.A. criteria. Neutrophils (Bld) [#/Vol] 6.9 10*3/uL 2.0-7.7 [facility] Neutrophils/100 WBC (Bld) 72.1 % 47-70 [facility] Potassium [Moles/Vol] 4.1 mmol/L 3.5-5.1 [facility] Sodium [Moles/Vol] 142 mmol/L 136-[address] [facility] WBC (Bld) [#/Vol] 9.6 10*3/uL 4.4-11.[address] [facility] Blood erythrocytes count (nu mber/volume)Ordered By: Mitali Hagen on 04-04-2022 RBC (Bld) [#/Vol] 4.16 10*6/uL 4.2-5.4 [facility] Blood hemoglobin measurement (mass/volume)Ordered By: Mitali Hagen on 04-04-2022 Hemoglobin (Bld) [Mass/Vol] 11.8 g/dL 12.0-15. 0 [facility] Blood lymphocytes/100 leukoc ytesOrdered By: Mitali Hagen on 04-04-2022 Lymphocytes/100 WBC (Bld) 17.3 % 19-41 [facility] Blood monocytes/100 leukocyt esOrdered By: Mitali Hagen on 04-04-2022 Monocytes/100 WBC (Bld) 6.9 % 0-10 [facility] Blood platelet mean volumeOr dered By: Mitali Hagen on 04-04-2022 Platelet mean volume (Bld) [Entitic vol] 10.0 fL 6.2-12.0 [facility] Determination of erythrocyte mean corpuscular volume (MCV)Ordered By: Mitali Hagen on 04-04-2022 MCV (RBC) [Entitic vol] 91.3 fL 81-99 [facility] Hematocrit Auto (Bld) [Volum e fraction]Ordered By: Mitali Hagen on 04-04-2022 Hematocrit (Bld) [Volume fraction] 38.0 % 37-47 [facility] Laboratory - Chemistry and C hemistry - challengeOrdered By: Mitali Hagen on 04-04-2022 CO2 [Moles/Vol] 32.0 mmol/L 21.0-32.0 [facility] Magnesium [Mass/Vol] 2.2 mg/dL 1.6-2.6 [facility] Natriuretic peptide B (Bld) [Mass/Vol] 335.9 pg/mL 0-100 [facility] Urea nitrogen/Creatinine [Mass ratio] 13.3 mg/mg 10-20 [facility] Laboratory - Hematology and Cell countsOrdered By: Mitali Hagen on 04-04-2022 Erythrocyte distribution width (RBC) [Entitic vol] 49.9 fL 35.1-43.[address] [facility] Erythrocyte distribution width (RBC) [Ratio] 14.9 % 11.6-14.6 [facility] Immature granulocytes/100 WBC (Bld) 1.000 % 0.0-0.9 [facility] Comment on above: IG% - Immature Granu locytes (promyelocytes, myelocytes and metamyelocytes) > 1% indicates that a LEFT SHIFT is Present. MCH (RBC) [Entitic mass] 28.4 pg 27.0-32.0 [facility] Nucleated RBC/100 WBC (Bld) [Ratio] 0 % 0-5 [facility] MCHC Auto (RBC) [Mass/Vol]Or dered By: Mitali Hagen on 04-04-2022 MCHC (RBC) [Mass/Vol] 31.1 g/dL 32-36 [facility] No Panel InformationOrdered By: Mitali Hagen on 04-04-2022 Estimated GFR (MDRD) Amer 45 mL/min >60 [facility] Comment on above: GFR Calc Estimated GFR (MDRD) Non-Af Amer 37 mL/min >60 [facility] Comment on above: Non- GFR Calc Troponin I High Sensitivity 17 pg/mL 3.0-54.0 [facility] Comment on above: Please Note: [place] Units and Gender Specific Reference Ranges. For more information see Policy Stat Procedure [place] High Sensitivity Troponin (TNIH) and attachments. Platelets bldOrdered By: Jamila Hagen on 04-04-2022 Platelets (Bld) [#/Vol] 250 10*3/uL 150-450 [facility] Serum or plasma calcium bob urement (mass/volume)Ordered By: Mitali Hagen on 04-04-2022 Calcium [Mass/Vol] 8.8 mg/dL 8.5-10.[address] [facility] Serum or plasma creatinine m easurement (mass/volume)Ordered By: Mitali Hagen on 04-04-2022 Creatinine [Mass/Vol] 1.43 mg/dL 0.55-1.02 [facility] Comment on above: The validity of the calculated GFR & GFRAA in patients over 70 years has not been determined. Clinical correlation is essential. Serum or plasma urea nitroge n measurement (mass/volume)Ordered By: Mitali Hagen on 04-04-2022 Urea nitrogen [Mass/Vol] 19 mg/dL 7-18 [facility] Thin prep Papanicolaou smear with manual screeningOrdered By: Mitali Hagen on 04-04-2022 Thin prep Papanicolaou smear with manual screening 3 5-15 [facility] No Panel InformationOrdered By: Dr. Douglas on 03-20-2022 Thyroid Stimulating Hormone (TSH) 6.22 uIU/mL 0.358-3.74 [facility] Laboratory - Microbiology an d Antimicrobial susceptibilityOrdered By: Dr. Douglas on 02-13-2022 SARS-CoV-2 (COVID-19) RNA ROSINA+probe Ql (Unsp spec) Not detected Not Detect [facility] Comment on above: Normal Reference Ran ge: Not DetectedMethod:(RT-PCR) real-time reverse transcriptase PCRLuminex RY Instrument*The Food and Drug Administration (FDA) has issued an Emergency Use Authorization (EAU) for the RY SARS-CoV-2 Assay for the rapid detection of the virus that causes COVID-19. This test has been validated, but the FDAs independent review of this validation is pending.*Negative results do not preclude infection and should not be used as the sole basis for treatment or patient management. Optimum specimen types and timing for peak viral levels during infections caused by SARS-CoV-2 have not been determined. Collection of multiple specimens from the same patient may be necessary to detect the virus. The possibility of a false negative result should be considered if the patient has clinical presentation or has had recent exposure. No Panel InformationOrdered By: Dr. Douglas on 02-13-2022 Influenza Types A,B Direct FA (JAMILA) [facility] RSV Ag EIAOrdered By: Dr. Bernadine rodriguez on 02-13-2022 RSV Ag Immune stain Ql (Tiss) [facility] Urine creatinine measurement (mass/volume)Ordered By: Dr. Marie on 01-16-2022 Creatinine (U) [Mass/Vol] 135.00 mg/dL NO RANGE EST. [facility] Urine protein measurement (m ass/volume)Ordered By: Dr. Marie on 01-16-2022 Protein (U) [Mass/Vol] 114.4 mg/dL 0.0-11.8 [facility] Urine protein/creatinine mas s ratioOrdered By: Dr. Marie on 01-16-2022 Protein/Creatinine (U) [Mass ratio] 847 mg/g CRE 0-200 [facility] Absolute lymphocyte countOrd ered By: Dr. Douglas on 01-15-2022 Lymphocytes Auto (Unsp spec) [#/Vol] 1.82 10*3/uL 0.83-4.51 [facility] Basophil percentageOrdered B y: Dr. Douglas on 01-15-2022 Basophil percentage 3.7 mg/dL 2.5-4.9 [facility] Basophils/100 WBC (Bld) 0.6 % 0-1 [facility] Bilirubin [Mass/Vol] 0.30 mg/dL 0.20-1.00 [facility] Comment on above: For patients on eltr ombopag therapy, use of Dimension [place] TBIL is not recommended. Chloride [Moles/Vol] 106 mmol/L 98-107 [facility] Eosinophils/100 WBC (Bld) 2.4 % 0-5 [facility] Glucose [Mass/Vol] 119 mg/dL 74-[address] [facility] Comment on above: Fasting Glucose resu lt from 100 to 125 mg/dL suggests IMPAIRED HOMEOSTASIS per A.D.A. criteria. Neutrophils (Bld) [#/Vol] 7.8 10*3/uL 2.0-7.7 [facility] Neutrophils/100 WBC (Bld) 73.7 % 47-70 [facility] Potassium [Moles/Vol] 3.7 mmol/L 3.5-5.1 [facility] Protein [Mass/Vol] 6.2 g/dL 6.4-8.[address] [facility] Sodium [Moles/Vol] 140 mmol/L 136-[address] [facility] WBC (Bld) [#/Vol] 10.6 10*3/uL 4.4-11.0 [facility] Blood erythrocytes count (nu mber/volume)Ordered By: Dr. Douglas on 01-15-2022 RBC (Bld) [#/Vol] 3.78 10*6/uL 4.2-5.4 [facility] Blood hemoglobin measurement (mass/volume)Ordered By: Dr. Douglas on 01-15-2022 Hemoglobin (Bld) [Mass/Vol] 11.0 g/dL 12.0-15. 0 [facility] Blood lymphocytes/100 leukoc ytesOrdered By: Dr. Douglas on 01-15-2022 Lymphocytes/100 WBC (Bld) 17.1 % 19-41 [facility] Blood monocytes/100 leukocyt esOrdered By: Dr. Douglas on 01-15-2022 Monocytes/100 WBC (Bld) 5.6 % 0-10 [facility] Blood platelet mean volumeOr dered By: Dr. Douglas on 01-15-2022 Platelet mean volume (Bld) [Entitic vol] 10.6 fL 6.2-12.0 [facility] Determination of erythrocyte mean corpuscular volume (MCV)Ordered By: Dr. Douglas on 01-15-2022 MCV (RBC) [Entitic vol] 91.5 fL 81-99 [facility] Hematocrit Auto (Bld) [Volum e fraction]Ordered By: Dr. Douglas on 01-15-2022 Hematocrit (Bld) [Volume fraction] 34.6 % 37-47 [facility] Iron measurement (mass/mass) Ordered By: Dr. Douglas on 01-15-2022 Iron (Unsp spec) [Mass/Mass] 39 ug/dL 50-170 [facility] Laboratory - Chemistry and C hemistry - challengeOrdered By: Dr. Douglas on 01-15-2022 ALP [Catalytic activity/Vol] 87 U/L 45-117 [facility] ALT [Catalytic activity/Vol] 14 U/L 13-56 [facility] CO2 [Moles/Vol] 28.0 mmol/L 21.0-32.0 [facility] Globulin (S) [Mass/Vol] 3.3 g/dL 2.2-4.2 [facility] Urea nitrogen/Creatinine [Mass ratio] 15.3 mg/mg 10-20 [facility] Laboratory - Hematology and Cell countsOrdered By: Dr. Douglas on 01-15-2022 Erythrocyte distribution width (RBC) [Entitic vol] 47.2 fL 35.1-43.[address] [facility] Erythrocyte distribution width (RBC) [Ratio] 14.1 % 11.6-14.6 [facility] Immature granulocytes/100 WBC (Bld) 0.600 % 0.0-0.9 [facility] Comment on above: IG% - Immature Granu locytes (promyelocytes, myelocytes and metamyelocytes) > 1% indicates that a LEFT SHIFT is Present. MCH (RBC) [Entitic mass] 29.1 pg 27.0-32.0 [facility] Nucleated RBC/100 WBC (Bld) [Ratio] 0 % 0-5 [facility] MCHC Auto (RBC) [Mass/Vol]Or dered By: Dr. Douglas on 01-15-2022 MCHC (RBC) [Mass/Vol] 31.8 g/dL 32-36 [facility] No Panel InformationOrdered By: Dr. Douglas on 01-15-2022 Estimated GFR (MDRD) Amer 41 mL/min >60 [facility] Comment on above: GFR Calc Estimated GFR (MDRD) Non-Af Amer 33 mL/min >60 [facility] Comment on above: Non- GFR Calc Thyroid Stimulating Hormone (TSH) 6.60 uIU/mL 0.358-3.74 [facility] Total Iron Binding Capacity 286 ug/dL 250-450 [facility] Vitamin D 25-Hydroxy 43.8 ng/mL [facility] Comment on above: Vitamin D 25(OH) Sta tus Range Deficiency <20 ng/mL (50nmol/L) Insufficiency 20 - 30 ng/mL (50 - 75 nmol/L) Sufficiency 30 - 100 ng/mL (75 - 250 nmol/L) Toxicity >100 ng/mL (>250 nmol/L) Platelets bldOrdered By: Dr. Douglas on 01-15-2022 Platelets (Bld) [#/Vol] 301 10*3/uL 150-450 [facility] Serum or plasma albumin bob urement (mass/volume)Ordered By: Dr. Douglas on 01-15-2022 Albumin [Mass/Vol] 2.9 g/dL 3.2-5.[address] [facility] Serum or plasma albumin/glob ulin mass ratioOrdered By: Dr. Douglas on 01-15-2022 Albumin/Globulin [Mass ratio] 0.9 {ratio} 0.9-2.4 [facility] Serum or plasma calcium bob urement (mass/volume)Ordered By: Dr. Douglas on 01-15-2022 Calcium [Mass/Vol] 8.6 mg/dL 8.5-10.[address] [facility] Serum or plasma creatinine m easurement (mass/volume)Ordered By: Dr. Douglas on 01-15-2022 Creatinine [Mass/Vol] 1.57 mg/dL 0.55-1.02 [facility] Comment on above: The validity of the calculated GFR & GFRAA in patients over 70 years has not been determined. Clinical correlation is essential. Serum or plasma ferritin tre surement (mass/volume)Ordered By: Dr. Douglas on 01-15-2022 Ferritin [Mass/Vol] 30 ng/mL 8-252 [facility] Serum or plasma iron saturat ion measurement (mass fraction)Ordered By: Dr. Douglas on 01-15-2022 Iron saturation [Mass fraction] 13.6 % 15.0-55.0 [facility] Serum or plasma urea nitroge n measurement (mass/volume)Ordered By: Dr. Douglas on 01-15-2022 Urea nitrogen [Mass/Vol] 24 mg/dL 7-18 [facility] Thin prep Papanicolaou smear with manual screeningOrdered By: Dr. Douglas on 01-15-2022 Thin prep Papanicolaou smear with manual screening 11 U/L 15-37 [facility] Thin prep Papanicolaou smear with manual screening 6 5-15 [facility] Basophil percentageon 2021 Basophil percentage 3.6 mg/dL 2.5-4.9 [facility] Work Phone: [phone] Chloride [Moles/Vol] 108 mmol/L 98-107 [facility] Work Phone: [phone] Glucose [Mass/Vol] 145 mg/dL 74-[address] [facility] Work Phone: [phone] Comment on above: Fasting Glucose resu lt greater than or equal to 126 mg/dL suggests DIABETES MELLITUS per A.D.A. criteria. Potassium [Moles/Vol] 3.8 mmol/L 3.5-5.1 [facility] Work Phone: [phone] Sodium [Moles/Vol] 142 mmol/L 136-[address] [facility] Work Phone: [phone] WBC (Bld) [#/Vol] 8.3 10*3/uL 4.4-11.[address] [facility] Work Phone: [phone] Blood erythrocytes count (nu mber/volume)on 11-08-2021 RBC (Bld) [#/Vol] 3.70 10*6/uL 4.2-5.4 [facility] Work Phone: [phone] Blood hemoglobin measurement (mass/volume)on 11-08-2021 Hemoglobin (Bld) [Mass/Vol] 10.9 g/dL 12.0-15. 0 [facility] Work Phone: [phone] Blood platelet mean volumeon 11-08-2021 Platelet mean volume (Bld) [Entitic vol] 10.3 fL 6.2-12.0 [facility] Work Phone: [phone] Determination of erythrocyte mean corpuscular volume (MCV)on 11-08-2021 MCV (RBC) [Entitic vol] 90.8 fL 81-99 [facility] Work Phone: [phone] Hematocrit Auto (Bld) [Volum e fraction]on 11-08-2021 Hematocrit (Bld) [Volume fraction] 33.6 % 37-47 [facility] Work Phone: [phone] Laboratory - Chemistry and C hemistry - challengeon 11-08-2021 CO2 [Moles/Vol] 28.0 mmol/L 21.0-32.0 [facility] Work Phone: Urea nitrogen/Creatinine [Mass ratio] 16.1 mg/mg 10-20 [facility] Work Phone: [phone] Laboratory - Hematology and Cell countson 11-08-2021 Erythrocyte distribution width (RBC) [Entitic vol] 51.0 fL 35.1-43.[address] [facility] Work Phone: [phone] Erythrocyte distribution width (RBC) [Ratio] 15.4 % 11.6-14.6 [facility] Work Phone: [phone] MCH (RBC) [Entitic mass] 29.5 pg 27.0-32.0 [facility] Work Phone: [phone] MCHC Auto (RBC) [Mass/Vol]on 11-08-2021 MCHC (RBC) [Mass/Vol] 32.4 g/dL 32-36 [facility] Work Phone: No Panel Informationon 11-08 Estimated GFR (MDRD) Amer 37 mL/min >60 [facility] Work Phone: Comment on above: GFR Calc Estimated GFR (MDRD) Non-Af Amer 31 mL/min >60 [facility] Work Phone: [phone] Comment on above: Non- GFR Calc Parathyroid Hormone (Intact) 110.8 pg/mL 18.4-80.1 [facility] Work Phone: Platelets bldon 11-08-2021 Platelets (Bld) [#/Vol] 305 10*3/uL 150-450 [facility] Work Phone: [phone] Serum or plasma calcium bob urement (mass/volume)on 11-08-2021 Calcium [Mass/Vol] 8.6 mg/dL 8.5-10.[address] [facility] Work Phone: [phone] Serum or plasma creatinine m easurement (mass/volume)on 11-08-2021 Creatinine [Mass/Vol] 1.68 mg/dL 0.55-1.02 [facility] Work Phone: Comment on above: The validity of the calculated GFR & GFRAA in patients over 70 years has not been determined. Clinical correlation is essential. Serum or plasma urea nitroge n measurement (mass/volume)on 11-08-2021 Urea nitrogen [Mass/Vol] 27 mg/dL 7-18 [facility] Work Phone: Thin prep Papanicolaou smear with manual screeningon 11-08-2021 Thin prep Papanicolaou smear with manual screening 6 5-15 [facility] Work Phone: Absolute lymphocyte counton 10-30-2021 Lymphocytes Auto (Unsp spec) [#/Vol] 1.81 10*3/uL 0.83-4.51 [facility] Work Phone: Basophil percentageon 2021 Basophils/100 WBC (Bld) 0.5 % 0-1 [facility] Work Phone: Chloride [Moles/Vol] 107 mmol/L 98-107 [facility] Work Phone: Eosinophils/100 WBC (Bld) 2.6 % 0-5 [facility] Work Phone: Glucose [Mass/Vol] 130 mg/dL 74-[address] [facility] Work Phone: Comment on above: Fasting Glucose resu lt greater than or equal to 126 mg/dL suggests DIABETES MELLITUS per A.D.A. criteria. Neutrophils (Bld) [#/Vol] 7.5 10*3/uL 2.0-7.7 [facility] Work Phone: Neutrophils/100 WBC (Bld) 72.2 % 47-70 [facility] Work Phone: Potassium [Moles/Vol] 4.2 mmol/L 3.5-5.1 [facility] Work Phone: Sodium [Moles/Vol] 140 mmol/L 136-[address] [facility] Work Phone: WBC (Bld) [#/Vol] 10.4 10*3/uL 4.4-11.0 [facility] Work Phone: [phone] Blood erythrocytes count (nu mber/volume)on 10-30-2021 RBC (Bld) [#/Vol] 3.71 10*6/uL 4.2-5.4 [facility] Work Phone: [phone] Blood hemoglobin measurement (mass/volume)on 10-30-2021 Hemoglobin (Bld) [Mass/Vol] 10.6 g/dL 12.0-15. 0 [facility] Work Phone: [phone] Blood lymphocytes/100 leukoc yteson 10-30-2021 Lymphocytes/100 WBC (Bld) 17.4 % 19-41 [facility] Work Phone: [phone] Blood monocytes/100 leukocyt eson 10-30-2021 Monocytes/100 WBC (Bld) 6.7 % 0-10 [facility] Work Phone: [phone] Blood platelet mean volumeon 10-30-2021 Platelet mean volume (Bld) [Entitic vol] 10.3 fL 6.2-12.0 [facility] Work Phone: [phone] Determination of erythrocyte mean corpuscular volume (MCV)on 10-30-2021 MCV (RBC) [Entitic vol] 92.2 fL 81-99 [facility] Work Phone: [phone] Hematocrit Auto (Bld) [Volum e fraction]on 10-30-2021 Hematocrit (Bld) [Volume fraction] 34.2 % 37-47 [facility] Work Phone: [phone] Laboratory - Chemistry and C hemistry - challengeon 10-30-2021 CO2 [Moles/Vol] 28.0 mmol/L 21.0-32.0 [facility] Work Phone: [phone] Natriuretic peptide B (Bld) [Mass/Vol] 161.5 pg/mL 0-100 [facility] Work Phone: [phone] Urea nitrogen/Creatinine [Mass ratio] 17.8 mg/mg 10-20 [facility] Work Phone: [phone] Laboratory - Hematology and Cell countson 10-30-2021 Erythrocyte distribution width (RBC) [Entitic vol] 50.7 fL 35.1-43.[address] [facility] Work Phone: [phone] Erythrocyte distribution width (RBC) [Ratio] 15.1 % 11.6-14.6 [facility] Work Phone: [phone] Immature granulocytes/100 WBC (Bld) 0.600 % 0.0-0.9 [facility] Work Phone: [phone] Comment on above: IG% - Immature Granu locytes (promyelocytes, myelocytes and metamyelocytes) > 1% indicates that a LEFT SHIFT is Present. MCH (RBC) [Entitic mass] 28.6 pg 27.0-32.0 [facility] Work Phone: [phone] Nucleated RBC/100 WBC (Bld) [Ratio] 0 % 0-5 [facility] Work Phone: [phone] MCHC Auto (RBC) [Mass/Vol]on 10-30-2021 MCHC (RBC) [Mass/Vol] 31.0 g/dL 32-36 [facility] Work Phone: No Panel Informationon 10-30 Estimated GFR (MDRD) Amer 41 mL/min >60 [facility] Work Phone: Comment on above: GFR Calc Estimated GFR (MDRD) Non-Af Amer 34 mL/min >60 [facility] Work Phone: [phone] Comment on above: Non- GFR Calc Platelets bldon 10-30-2021 Platelets (Bld) [#/Vol] 233 10*3/uL 150-450 [facility] Work Phone: [phone] Serum or plasma calcium bob urement (mass/volume)on 10-30-2021 Calcium [Mass/Vol] 8.7 mg/dL 8.5-10.[address] [facility] Work Phone: [phone] Serum or plasma creatinine m easurement (mass/volume)on 10-30-2021 Creatinine [Mass/Vol] 1.57 mg/dL 0.55-1.02 [facility] Work Phone: Comment on above: The validity of the calculated GFR & GFRAA in patients over 70 years has not been determined. Clinical correlation is essential. Serum or plasma urea nitroge n measurement (mass/volume)on 10-30-2021 Urea nitrogen [Mass/Vol] 28 mg/dL 7-18 [facility] Work Phone: Thin prep Papanicolaou smear with manual screeningon 10-30-2021 Thin prep Papanicolaou smear with manual screening 5 5-15 [facility] Work Phone: [phone] Glucose Glucometer (BldC) [M ass/Vol]on 10-25-2021 Glucose [Mass/Vol] 155 mg/dL 74-[address] [facility] Work Phone: Comment on above: MANAGEMENT OF PATIEN T CARE PER NURSING PROTOCOL Absolute lymphocyte counton 10-23-2021 Lymphocytes Auto (Unsp spec) [#/Vol] 1.90 10*3/uL 0.83-4.51 [facility] Work Phone: Basophil percentageon 2021 Basophils/100 WBC (Bld) 0.4 % 0-1 [facility] Work Phone: Chloride [Moles/Vol] 105 mmol/L 98-107 [facility] Work Phone: Eosinophils/100 WBC (Bld) 1.6 % 0-5 [facility] Work Phone: Glucose [Mass/Vol] 111 mg/dL 74-[address] [facility] Work Phone: Comment on above: Fasting Glucose resu lt from 100 to 125 mg/dL suggests IMPAIRED HOMEOSTASIS per A.D.A. criteria. Neutrophils (Bld) [#/Vol] 10.3 10*3/uL 2.0-7.7 [facility] Work Phone: Neutrophils/100 WBC (Bld) 73.4 % 47-70 [facility] Work Phone: Potassium [Moles/Vol] 4.4 mmol/L 3.5-5.1 [facility] Work Phone: Sodium [Moles/Vol] 142 mmol/L 136-[address] [facility] Work Phone: [phone] WBC (Bld) [#/Vol] 14.0 10*3/uL 4.4-11.0 [facility] Work Phone: [phone] Blood erythrocytes count (nu mber/volume)on 10-23-2021 RBC (Bld) [#/Vol] 3.81 10*6/uL 4.2-5.4 [facility] Work Phone: [phone] Blood hemoglobin measurement (mass/volume)on 10-23-2021 Hemoglobin (Bld) [Mass/Vol] 10.9 g/dL 12.0-15. 0 [facility] Work Phone: [phone] Blood lymphocytes/100 leukoc yteson 10-23-2021 Lymphocytes/100 WBC (Bld) 13.5 % 19-41 [facility] Work Phone: [phone] Blood monocytes/100 leukocyt eson 10-23-2021 Monocytes/100 WBC (Bld) 7.4 % 0-10 [facility] Work Phone: [phone] Blood platelet mean volumeon 10-23-2021 Platelet mean volume (Bld) [Entitic vol] 10.3 fL 6.2-12.0 [facility] Work Phone: [phone] Determination of erythrocyte mean corpuscular volume (MCV)on 10-23-2021 MCV (RBC) [Entitic vol] 93.2 fL 81-99 [facility] Work Phone: [phone] Hematocrit Auto (Bld) [Volum e fraction]on 10-23-2021 Hematocrit (Bld) [Volume fraction] 35.5 % 37-47 [facility] Work Phone: [phone] Laboratory - Chemistry and C hemistry - challengeon 10-23-2021 CO2 [Moles/Vol] 33.0 mmol/L 21.0-32.0 [facility] Work Phone: [phone] Urea nitrogen/Creatinine [Mass ratio] 35.2 mg/mg 10-20 [facility] Work Phone: [phone] Laboratory - Hematology and Cell countson 10-23-2021 Erythrocyte distribution width (RBC) [Entitic vol] 51.1 fL 35.1-43.[address] [facility] Work Phone: [phone] Erythrocyte distribution width (RBC) [Ratio] 14.8 % 11.6-14.6 [facility] Work Phone: [phone] Immature granulocytes/100 WBC (Bld) 3.700 % 0.0-0.9 [facility] Work Phone: [phone] Comment on above: IG% - Immature Granu locytes (promyelocytes, myelocytes and metamyelocytes) > 1% indicates that a LEFT SHIFT is Present. MCH (RBC) [Entitic mass] 28.6 pg 27.0-32.0 [facility] Work Phone: [phone] Nucleated RBC/100 WBC (Bld) [Ratio] 0 % 0-5 [facility] Work Phone: [phone] MCHC Auto (RBC) [Mass/Vol]on 10-23-2021 MCHC (RBC) [Mass/Vol] 30.7 g/dL 32-36 [facility] Work Phone: No Panel Informationon 10-23 Estimated Creatinine Clearance Calc 30.18 ml/min [facility] Work Phone: [phone] Estimated GFR (MDRD) Amer 44 mL/min >60 [facility] Work Phone: [phone] Comment on above: GFR Calc Estimated GFR (MDRD) Non-Af Amer 37 mL/min >60 [facility] Work Phone: [phone] Comment on above: Non- GFR Calc Platelets bldon 10-23-2021 Platelets (Bld) [#/Vol] 276 10*3/uL 150-450 [facility] Work Phone: [phone] Serum or plasma calcium bob urement (mass/volume)on 10-23-2021 Calcium [Mass/Vol] 8.4 mg/dL 8.5-10.[address] [facility] Work Phone: [phone] Serum or plasma creatinine m easurement (mass/volume)on 10-23-2021 Creatinine [Mass/Vol] 1.45 mg/dL 0.55-1.02 [facility] Work Phone: Comment on above: The validity of the calculated GFR & GFRAA in patients over 70 years has not been determined. Clinical correlation is essential. Serum or plasma urea nitroge n measurement (mass/volume)on 10-23-2021 Urea nitrogen [Mass/Vol] 51 mg/dL 7-18 [facility] Work Phone: Thin prep Papanicolaou smear with manual screeningon 10-23-2021 Thin prep Papanicolaou smear with manual screening 4 5-15 [facility] Work Phone: Blood band neutrophil count as percentage of total leukocyteson 10-16-2021 Band form neutrophils/100 WBC (Bld) 2 % 0-5 [facility] Work Phone: Blood lymphocytes/100 leukoc yteson 10-16-2021 Lymphocytes/100 WBC (Bld) 8 % 19-41 [facility] Work Phone: Blood monocytes/100 leukocyt eson 10-16-2021 Monocytes/100 WBC (Bld) 3 % 0-10 [facility] Work Phone: Blood platelet adequacy dete ction by light microscopyon 10-16-2021 Platelets LM Ql (Bld) SLT INC ADEQ [facility] Work Phone: Blood segmented neutrophils/ 100 leukocyteson 10-16-2021 Segmented neutrophils/100 WBC (Bld) 78 % 47-70 [facility] Work Phone: Laboratory - Hematology and Cell countson 10-16-2021 Anisocytosis Ql (Bld) 1+ [facility] Work Phone: Myelocytes/100 WBC (Bld) 9 % 0-0 [facility] Work Phone: Review by pathologiston 08-0 Pathologist review Husam (Unsp spec) [Interp] Reviewed [facility] Work Phone: Comment on above: Previous reported re sult: Silvina aguilar Edited by: RGOOD on 10/16/21:1317Neutrophilic leukocytosis with left shift. Normocytic anemia.Thrombocytosis.Clinical correlation necessary.Cristobal Mcpherson M.D. 10/16/21 AMENDED REPORT 10/16/21 1317 PATH REV previously reported as: Silvina aguilar Total cell counton 2 Cells counted [employer] (Bld/Tiss) [#] 100 MANUAL DIFF [facility] Work Phone: Absolute lymphocyte counton 10-15-2021 Lymphocytes Auto (Unsp spec) [#/Vol] 0.68 10*3/uL 0.83-4.51 [facility] Work Phone: Basophil percentageon 2021 Basophils/100 WBC (Bld) 0.3 % 0-1 [facility] Work Phone: Chloride [Moles/Vol] 96 mmol/L 98-107 [facility] Work Phone: Eosinophils/100 WBC (Bld) 0.0 % 0-5 [facility] Work Phone: Glucose [Mass/Vol] 414 mg/dL 74-[address] [facility] Work Phone: Comment on above: Glucose result great er than or equal to 200 mg/dLsuggests DIABETES MELLITUS per A.D.A. criteria. Neutrophils (Bld) [#/Vol] 13.8 10*3/uL 2.0-7.7 [facility] Work Phone: Neutrophils/100 WBC (Bld) 88.1 % 47-70 [facility] Work Phone: Potassium [Moles/Vol] 4.3 mmol/L 3.5-5.1 [facility] Work [facility]: Sodium [Moles/Vol] 131 mmol/L 136-[address] [facility] Work Phone: WBC (Bld) [#/Vol] 15.6 10*3/uL 4.4-11.0 [facility] Work Phone: Blood erythrocytes count (nu mber/volume)on 10-15-2021 RBC (Bld) [#/Vol] 4.01 10*6/uL 4.2-5.4 [facility] Work Phone: [phone] Blood hemoglobin measurement (mass/volume)on 10-15-2021 Hemoglobin (Bld) [Mass/Vol] 11.6 g/dL 12.0-15. 0 [facility] Work Phone: [phone] Blood lymphocytes/100 leukoc yteson 10-15-2021 Lymphocytes/100 WBC (Bld) 4.4 % 19-41 [facility] Work Phone: [phone] Blood monocytes/100 leukocyt eson 10-15-2021 Monocytes/100 WBC (Bld) 3.8 % 0-10 [facility] Work Phone: [phone] Blood platelet mean volumeon 10-15-2021 Platelet mean volume (Bld) [Entitic vol] 10.4 fL 6.2-12.0 [facility] Work Phone: [phone] Determination of erythrocyte mean corpuscular volume (MCV)on 10-15-2021 MCV (RBC) [Entitic vol] 89.8 fL 81-99 [facility] Work Phone: Glucose Glucometer (BldC) [M ass/Vol]on 10-15-2021 Glucose [Mass/Vol] 375 mg/dL 74-[address] [facility] Work Phone: [phone] Comment on above: MANAGEMENT OF PATIEN T CARE PER NURSING PROTOCOL Hematocrit Auto (Bld) [Volum e fraction]on 10-15-2021 Hematocrit (Bld) [Volume fraction] 36.0 % 37-47 [facility] Work Phone: Laboratory - Chemistry and C hemistry - challengeon 10-15-2021 CO2 [Moles/Vol] 28.0 mmol/L 21.0-32.0 [facility] Work Phone: [phone] Urea nitrogen/Creatinine [Mass ratio] 28.1 mg/mg 10-20 [facility] Work Phone: Laboratory - Hematology and Cell countson 10-15-2021 Erythrocyte distribution width (RBC) [Entitic vol] 47.8 fL 35.1-43.[address] [facility] Work Phone: [phone] Erythrocyte distribution width (RBC) [Ratio] 14.6 % 11.6-14.6 [facility] Work Phone: [phone] Immature granulocytes/100 WBC (Bld) 3.400 % 0.0-0.9 [facility] Work Phone: [phone] Comment on above: IG% - Immature Granu locytes (promyelocytes, myelocytes and metamyelocytes) > 1% indicates that a LEFT SHIFT is Present. MCH (RBC) [Entitic mass] 28.9 pg 27.0-32.0 [facility] Work Phone: [phone] Nucleated RBC/100 WBC (Bld) [Ratio] 0 % 0-5 [facility] Work Phone: [phone] MCHC Auto (RBC) [Mass/Vol]on 10-15-2021 MCHC (RBC) [Mass/Vol] 32.2 g/dL 32-36 [facility] Work Phone: No Panel Informationon 10-15 Estimated Creatinine Clearance Calc 22.32 ml/min [facility] Work Phone: [phone] Estimated GFR (MDRD) Amer 31 mL/min >60 [facility] Work Phone: [phone] Comment on above: GFR Calc Estimated GFR (MDRD) Non-Af Amer 26 mL/min >60 [facility] Work Phone: [phone] Comment on above: Non- GFR Calc Platelets bldon 10-15-2021 Platelets (Bld) [#/Vol] 435 10*3/uL 150-450 [facility] Work Phone: Serum or plasma calcium bob urement (mass/volume)on 10-15-2021 Calcium [Mass/Vol] 10.2 mg/dL 8.5-10.[address] [facility] Work Phone: [phone] Serum or plasma creatinine m easurement (mass/volume)on 10-15-2021 Creatinine [Mass/Vol] 1.96 mg/dL 0.55-1.02 [facility] Work Phone: Comment on above: The validity of the calculated GFR & GFRAA in patients over 70 years has not been determined. Clinical correlation is essential. Serum or plasma urea nitroge n measurement (mass/volume)on 10-15-2021 Urea nitrogen [Mass/Vol] 55 mg/dL 7-18 [facility] Work Phone: Thin prep Papanicolaou smear with manual screeningon 10-15-2021 Thin prep Papanicolaou smear with manual screening 7 5-15 [facility] Work Phone: Blood manual differential co mment interpretation (narrative result)on 10-14-2021 Manual differential comment Husam (Bld) [Interp] SCANNED [facility] Work Phone: Laboratory - Chemistry and C hemistry - challengeon 10-14-2021 Sodium (U) [Moles/Vol] 37 mmol/L Not Establ. [facility] Work Phone: Urine creatinine measurement (mass/volume)on 10-14-2021 Creatinine (U) [Mass/Vol] 84.40 mg/dL NO RANGE EST. [facility] Work Phone: Basophil percentageon 2021 Bilirubin [Mass/Vol] 0.30 mg/dL 0.20-1.00 [facility] Work Phone: Comment on above: For patients on eltr ombopag therapy, use of Dimension [place] TBIL is not recommended. Protein [Mass/Vol] 6.4 g/dL 6.4-8.[address] [facility] Work Phone: Laboratory - Chemistry and C hemistry - challengeon 10-13-2021 ALP [Catalytic activity/Vol] 91 U/L 45-117 [facility] Work Phone: [phone] ALT [Catalytic activity/Vol] 17 U/L 13-56 [facility] Work Phone: [phone] Globulin (S) [Mass/Vol] 4.4 g/dL 2.2-4.2 [facility] Work Phone: Serum or plasma albumin bob urement (mass/volume)on 10-13-2021 Albumin [Mass/Vol] 2.0 g/dL 3.2-5.[address] [facility] Work Phone: Serum or plasma albumin/glob ulin mass ratioon 10-13-2021 Albumin/Globulin [Mass ratio] 0.5 {ratio} 0.9-2.4 [facility] Work Phone: Thin prep Papanicolaou smear with manual screeningon 10-13-2021 Thin prep Papanicolaou smear with manual screening 22 U/L 15-37 [facility] Work Phone: Absolute lymphocyte counton 10-09-2021 Lymphocytes Auto (Unsp spec) [#/Vol] 0.73 10*3/uL 0.83-4.51 [facility] Work Phone: Basophil percentageon 2021 Basophil percentage 0-5 SEEN /hpf 0-5 [facility] Work Phone: [phone] Lactate [Moles/Vol] 1.6 mmol/L 0.4-2.0 [facility] Work Phone: Basophils/100 WBC (Bld) 0.2 % 0-1 [facility] Work Phone: Chloride [Moles/Vol] 101 mmol/L 98-107 [facility] Work Phone: Eosinophils/100 WBC (Bld) 0.0 % 0-5 [facility] Work Phone: Glucose [Mass/Vol] 267 mg/dL 74-[address] [facility] Work Phone: Comment on above: Glucose result great er than or equal to 200 mg/dLsuggests DIABETES MELLITUS per A.D.A. criteria. Lactate [Moles/Vol] 2.5 mmol/L 0.4-2.0 [facility] Work Phone: Comment on above: Critical Result(s) C alled at: 13:19:32 10/09/2021 by: Antoinette Post. Results read back by same. Neutrophils (Bld) [#/Vol] 17.7 10*3/uL 2.0-7.7 [facility] Work Phone: Neutrophils/100 WBC (Bld) 89.3 % 47-70 [facility] Work Phone: [phone] Potassium [Moles/Vol] 3.6 mmol/L 3.5-5.1 [facility] Work Phone: [phone] Sodium [Moles/Vol] 134 mmol/L 136-[address] [facility] Work Phone: [phone] WBC (Bld) [#/Vol] 19.8 10*3/uL 4.4-11.0 [facility] Work Phone: Bilirubin Test strip Ql (U)o n 10-09-2021 Bilirubin Ql (U) 1 mg/dL Negative [facility] Work Phone: Comment on above: COLOR OF URINE MAY A FFECT DIPSTICK RESULTS. Blood erythrocytes count (nu mber/volume)on 10-09-2021 RBC (Bld) [#/Vol] 4.58 10*6/uL 4.2-5.4 [facility] Work Phone: Blood hemoglobin measurement (mass/volume)on 10-09-2021 Hemoglobin (Bld) [Mass/Vol] 13.5 g/dL 12.0-15. 0 [facility] Work Phone: Blood lymphocytes/100 leukoc yteson 10-09-2021 Lymphocytes/100 WBC (Bld) 3.7 % 19-41 [facility] Work Phone: [phone] Blood monocytes/100 leukocyt eson 10-09-2021 Monocytes/100 WBC (Bld) 5.8 % 0-10 [facility] Work Phone: Blood platelet mean volumeon 10-09-2021 Platelet mean volume (Bld) [Entitic vol] 11.3 fL 6.2-12.0 [facility] Work Phone: [phone] Determination of erythrocyte mean corpuscular volume (MCV)on 10-09-2021 MCV (RBC) [Entitic vol] 90.2 fL 81-99 [facility] Work Phone: [phone] Hematocrit Auto (Bld) [Volum e fraction]on 10-09-2021 Hematocrit (Bld) [Volume fraction] 41.3 % 37-47 [facility] Work Phone: [phone] Hyaline casts LM.LPF (Urine sed) [#/Area]on 10-09-2021 Hyaline casts (Urine sed) [#/Area] 5 /[LPF] 0-5 [facility] Work Phone: [phone] Ketones Test strip Ql (U)on 10-09-2021 Ketones Ql (U) 5 mg/dl Negative [facility] Work Phone: [phone] Laboratory - Chemistry and C hemistry - challengeon 10-09-2021 CO2 [Moles/Vol] 25.0 mmol/L 21.0-32.0 [facility] Work Phone: [phone] Magnesium [Mass/Vol] 1.9 mg/dL 1.6-2.6 [facility] Work Phone: [phone] Natriuretic peptide B (Bld) [Mass/Vol] 498.5 pg/mL 0-100 [facility] Work Phone: [phone] Urea nitrogen/Creatinine [Mass ratio] 13.9 mg/mg 10-20 [facility] Work Phone: [phone] Laboratory - Hematology and Cell countson 10-09-2021 Erythrocyte distribution width (RBC) [Entitic vol] 48.1 fL 35.1-43.[address] [facility] Work Phone: [phone] Erythrocyte distribution width (RBC) [Ratio] 14.6 % 11.6-14.6 [facility] Work Phone: [phone] Immature granulocytes/100 WBC (Bld) 1.000 % 0.0-0.9 [facility] Work Phone: Comment on above: IG% - Immature Granu locytes (promyelocytes, myelocytes and metamyelocytes) > 1% indicates that a LEFT SHIFT is Present. MCH (RBC) [Entitic mass] 29.5 pg 27.0-32.0 [facility] Work Phone: [phone] Nucleated RBC/100 WBC (Bld) [Ratio] 0 % 0-5 [facility] Work Phone: [phone] MCHC Auto (RBC) [Mass/Vol]on 10-09-2021 MCHC (RBC) [Mass/Vol] 32.7 g/dL 32-36 [facility] Work Phone: [phone] Mucus LM Ql (Urine sed)on Mucus Ql (Urine sed) 0 SEEN /hpf [facility] Work Phone: [phone] Nitrite Test strip Ql (U)on 10-09-2021 Nitrite Ql (U) Positive Negative [facility] Work Phone: [phone] Panel Informationon 10-09 Troponin I High Sensitivity 33 pg/mL 3.0-54.0 [facility] Work Phone: [phone] Comment on above: Please Note: [place] Units and Gender Specific Reference Ranges. For more information see Policy Stat Procedure [place] High Sensitivity Troponin (TNIH) and attachments. Estimated Creatinine Clearance Calc 27.69 ml/min [facility] Work Phone: [phone] Estimated GFR (MDRD) Amer 40 mL/min >60 [facility] Work Phone: [phone] Comment on above: GFR Calc Estimated GFR (MDRD) Non-Af Amer 33 mL/min >60 [facility] Work Phone: [phone] Comment on above: Non- GFR Calc Thyroid Stimulating Hormone (TSH) 3.69 uIU/mL 0.358-3.74 [facility] Work Phone: [phone] Troponin I High Sensitivity 36 pg/mL 3.0-54.0 [facility] Work Phone: [phone] Comment on above: Please Note: [place] Units and Gender Specific Reference Ranges. For more information see Policy Stat Procedure [place] High Sensitivity Troponin (TNIH) and attachments. Platelets bldon 10-09-2021 Platelets (Bld) [#/Vol] 230 10*3/uL 150-450 [facility] Work Phone: Protein Test strip Ql (U)on 10-09-2021 Protein Ql (U) 500 mg/dl Negative [facility] Work Phone: Serum or plasma calcium bob urement (mass/volume)on 10-09-2021 Calcium [Mass/Vol] 9.1 mg/dL 8.5-10.[address] [facility] Work Phone: Serum or plasma creatinine m easurement (mass/volume)on 10-09-2021 Creatinine [Mass/Vol] 1.58 mg/dL 0.55-1.02 [facility] Work Phone: Comment on above: The validity of the calculated GFR & GFRAA in patients over 70 years has not been determined. Clinical correlation is essential. Serum or plasma urea nitroge n measurement (mass/volume)on 10-09-2021 Urea nitrogen [Mass/Vol] 22 mg/dL 7-18 [facility] Work Phone: [phone] Squamous epithelial cells de tection in urine sediment by light microscopyon 10-09-2021 Epithelial cells.squamous LM Ql (Urine sed) 0-5 SEEN /hpf 5-10 [facility] Work Phone: [phone] Thin prep Papanicolaou smear with manual screeningon 10-09-2021 Thin prep Papanicolaou smear with manual screening 8 5-15 [facility] Work Phone: Urine blood detectionon 09-16 RBC Ql (U) 25 /ul Negative [facility] Work Phone: [phone] RBC Ql (U) 0-5 SEEN /hpf 0-5 [facility] Work Phone: [phone] Urine clarityon 10-09-2021 Clarity (U) Cloudy Clear [facility] Work Phone: Urine coarse granular cast d etectionon 10-09-2021 Coarse Granular Casts LM Ql (Urine sed) 25-50 SEEN /lpf 0-5 /lpf [facility] Work Phone: Urine color determinationon 10-09-2021 Color (U) Yellow Yellow [facility] Work Phone: Urine glucose detectionon Glucose Ql (U) 100 mg/dl Normal [facility] Work Phone: Urine leukocyte esterase det ection by dipstickon 10-09-2021 Leukocyte esterase Test strip Ql (U) 25 /ul Negative [facility] Work Phone: Urine pHon 10-09-2021 pH (U) 5.0 [pH] 5.0 - 8.0 [facility] Work Phone: Urine sediment bacteria coun t by microscopy (number/high power field)on 10-09-2021 Bacteria LM.HPF (Urine sed) [#/Area] 3 /[HPF] None Seen [facility] Work Phone: Urine sediment fine granular cast count by microscopy (number/low power field)on 10-09-2021 Fine Granular Casts LM.LPF (Urine sed) [#/Area] 10-25 SEEN /lpf 0-5 [facility] Work Phone: Urine specific gravity measu rementon 10-09-2021 Specific gravity (U) [Rel density] 1.025 1.002-1.03 0 [facility] Work Phone: Urobilinogen Auto test strip Ql (U)on 10-09-2021 Urobilinogen Ql (U) 4 mg/dl Normal [facility] Work Phone: Basophil percentageon 2021 Chloride [Moles/Vol] 108 mmol/L 98-[address] [facility] Work Phone: Glucose [Mass/Vol] 204 mg/dL 74-[address] [facility] Work Phone: Comment on above: Glucose result great er than or equal to 200 mg/dLsuggests DIABETES MELLITUS per A.D.A. criteria. Potassium [Moles/Vol] 4.5 mmol/L 3.5-5.1 [facility] Work Phone: Sodium [Moles/Vol] 142 mmol/L 136-[address] [facility] Work Phone: Laboratory - Chemistry and C hemistry - challengeon 10-02-2021 CO2 [Moles/Vol] 30.0 mmol/L 21.0-32.0 [facility] Work Phone: Urea nitrogen/Creatinine [Mass ratio] 15.4 mg/mg 10-20 [facility] Work Phone: No Panel Informationon 10-02 Estimated GFR (MDRD) Amer 50 mL/min >60 [facility] Work Phone: Comment on above: GFR Calc Estimated GFR (MDRD) Non-Af Amer 42 mL/min >60 [facility] Work Phone: Comment on above: Non- GFR Calc Serum or plasma calcium bob urement (mass/volume)on 10-02-2021 Calcium [Mass/Vol] 9.1 mg/dL 8.5-10.[address] [facility] Work Phone: Serum or plasma creatinine m easurement (mass/volume)on 10-02-2021 Creatinine [Mass/Vol] 1.30 mg/dL 0.55-1.02 [facility] Work Phone: Comment on above: The validity of the calculated GFR & GFRAA in patients over 70 years has not been determined. Clinical correlation is essential. Serum or plasma urea nitroge n measurement (mass/volume)on 10-02-2021 Urea nitrogen [Mass/Vol] 20 mg/dL 7-18 [facility] Work Phone: Thin prep Papanicolaou smear with manual screeningon 10-02-2021 Thin prep Papanicolaou smear with manual screening 4 5-15 [facility] Work Phone: Absolute lymphocyte counton 09-06-2021 Lymphocytes Auto (Unsp spec) [#/Vol] 2.17 10*3/uL 0.83-4.51 [facility] Work Phone: Basophil percentageon 2021 Basophils/100 WBC (Bld) 0.6 % 0-1 [facility] Work Phone: Chloride [Moles/Vol] 106 mmol/L 98-107 [facility] Work Phone: Eosinophils/100 WBC (Bld) 2.2 % 0-5 [facility] Work Phone: Glucose [Mass/Vol] 238 mg/dL 74-[address] [facility] Work Phone: Comment on above: Glucose result great er than or equal to 200 mg/dLsuggests DIABETES MELLITUS per A.D.A. criteria. Neutrophils (Bld) [#/Vol] 8.9 10*3/uL 2.0-7.7 [facility] Work Phone: Neutrophils/100 WBC (Bld) 71.8 % 47-70 [facility] Work Phone: Potassium [Moles/Vol] 3.8 mmol/L 3.5-5.1 [facility] Work Phone: Sodium [Moles/Vol] 141 mmol/L 136-[address] [facility] Work Phone: WBC (Bld) [#/Vol] 12.4 10*3/uL 4.4-11.0 [facility] Work Phone: Blood erythrocytes count (nu mber/volume)on 09-06-2021 RBC (Bld) [#/Vol] 4.70 10*6/uL 4.2-5.4 [facility] Work Phone: Blood hemoglobin measurement (mass/volume)on 09-06-2021 Hemoglobin (Bld) [Mass/Vol] 13.3 g/dL 12.0-15. 0 [facility] Work Phone: Blood lymphocytes/100 leukoc yteson 09-06-2021 Lymphocytes/100 WBC (Bld) 17.6 % 19-41 [facility] Work Phone: Blood monocytes/100 leukocyt eson 09-06-2021 Monocytes/100 WBC (Bld) 6.7 % 0-10 [facility] Work Phone: [phone] Blood platelet mean volumeon 09-06-2021 Platelet mean volume (Bld) [Entitic vol] 11.3 fL 6.2-12.0 [facility] Work Phone: [phone] Determination of erythrocyte mean corpuscular volume (MCV)on 09-06-2021 MCV (RBC) [Entitic vol] 90.6 fL 81-99 [facility] Work Phone: [phone] Hematocrit Auto (Bld) [Volum e fraction]on 09-06-2021 Hematocrit (Bld) [Volume fraction] 42.6 % 37-47 [facility] Work Phone: [phone] Laboratory - Chemistry and C hemistry - challengeon 09-06-2021 CO2 [Moles/Vol] 30.0 mmol/L 21.0-32.0 [facility] Work Phone: [phone] Natriuretic peptide B (Bld) [Mass/Vol] 231.0 pg/mL 0-100 [facility] Work Phone: [phone] Urea nitrogen/Creatinine [Mass ratio] 16.8 mg/mg 10-20 [facility] Work Phone: [phone] Laboratory - Hematology and Cell countson 09-06-2021 Erythrocyte distribution width (RBC) [Entitic vol] 47.4 fL 35.1-43.9 [facility]: [phone] Erythrocyte distribution width (RBC) [Ratio] 14.3 % 11.6-14.6 [facility] Work Phone: [phone] Immature granulocytes/100 WBC (Bld) 1.100 % 0.0-0.9 [facility] Work Phone: [phone] Comment on above: IG% - Immature Granu locytes (promyelocytes, myelocytes and metamyelocytes) > 1% indicates that a LEFT SHIFT is Present. MCH (RBC) [Entitic mass] 28.3 pg 27.0-32.0 [facility] Work Phone: Nucleated RBC/100 WBC (Bld) [Ratio] 0 % 0-5 [facility] Work Phone: MCHC Auto (RBC) [Mass/Vol]on 09-06-2021 MCHC (RBC) [Mass/Vol] 31.2 g/dL 32-36 [facility] Work Phone: No Panel Informationon 09-06 Estimated GFR (MDRD) Amer 45 mL/min >60 [facility] Work Phone: Comment on above: GFR Calc Estimated GFR (MDRD) Non-Af Amer 37 mL/min >60 [facility] Work Phone: Comment on above: Non- GFR Calc Platelets bldon 09-06-2021 Platelets (Bld) [#/Vol] 296 10*3/uL 150-450 [facility] Work Phone: Serum or plasma calcium obb urement (mass/volume)on 09-06-2021 Calcium [Mass/Vol] 9.4 mg/dL 8.5-10.[address] [facility] Work Phone: Serum or plasma creatinine m easurement (mass/volume)on 09-06-2021 Creatinine [Mass/Vol] 1.43 mg/dL 0.55-1.02 [facility] Work Phone: Comment on above: The validity of the calculated GFR & GFRAA in patients over 70 years has not been determined. Clinical correlation is essential. Serum or plasma urea nitroge n measurement (mass/volume)on 09-06-2021 Urea nitrogen [Mass/Vol] 24 mg/dL 7-18 [facility] Work Phone: Thin prep Papanicolaou smear with manual screeningon 09-06-2021 Thin prep Papanicolaou smear with manual screening 5 5-15 [facility] Work Phone: Absolute lymphocyte counton 07-12-2021 Lymphocytes Auto (Unsp spec) [#/Vol] 2.86 10*3/uL 0.83-4.51 [facility] Work Phone: Basophil percentageon 2021 Basophils/100 WBC (Bld) 0.6 % 0-1 [facility] Work Phone: Bilirubin [Mass/Vol] 0.40 mg/dL 0.20-1.00 [facility] Work Phone: Comment on above: For patients on eltr ombopag therapy, use of Dimension [place] TBIL is not recommended. Chloride [Moles/Vol] 102 mmol/L 98-107 [facility] Work Phone: Eosinophils/100 WBC (Bld) 2.4 % 0-5 [facility] Work Phone: Glucose [Mass/Vol] 200 mg/dL 74-[address] [facility] Work Phone: Comment on above: Glucose result great er than or equal to 200 mg/dLsuggests DIABETES MELLITUS per A.D.A. criteria. Neutrophils (Bld) [#/Vol] 9.1 10*3/uL 2.0-7.7 [facility] Work Phone: Neutrophils/100 WBC (Bld) 68.4 % 47-70 [facility] Work Phone: Potassium [Moles/Vol] 4.0 mmol/L 3.5-5.1 [facility] Work Phone: Protein [Mass/Vol] 7.1 g/dL 6.4-8.[address] [facility] Work Phone: Sodium [Moles/Vol] 137 mmol/L 136-[address] [facility] Work Phone: WBC (Bld) [#/Vol] 13.3 10*3/uL 4.4-11.0 [facility] Work Phone: Blood erythrocytes count (nu mber/volume)on 07-12-2021 RBC (Bld) [#/Vol] 4.55 10*6/uL 4.2-5.4 [facility] Work Phone: Blood hemoglobin measurement (mass/volume)on 07-12-2021 Hemoglobin (Bld) [Mass/Vol] 12.9 g/dL 12.0-15. 0 [facility] Work Phone: [phone] Blood lymphocytes/100 leukoc yteson 07-12-2021 Lymphocytes/100 WBC (Bld) 21.5 % 19-41 [facility] Work Phone: [phone] Blood monocytes/100 leukocyt eson 07-12-2021 Monocytes/100 WBC (Bld) 6.5 % 0-10 [facility] Work Phone: [phone] Blood platelet mean volumeon 07-12-2021 Platelet mean volume (Bld) [Entitic vol] 12.0 fL 6.2-12.0 [facility] Work Phone: [phone] Determination of erythrocyte mean corpuscular volume (MCV)on 07-12-2021 MCV (RBC) [Entitic vol] 89.0 fL 81-99 [facility] Work Phone: [phone] Hematocrit Auto (Bld) [Volum e fraction]on 07-12-2021 Hematocrit (Bld) [Volume fraction] 40.5 % 37-47 [facility] Work Phone: Laboratory - Chemistry and C hemistry - challengeon 07-12-2021 ALP [Catalytic activity/Vol] 97 U/L 45-117 [facility] Work Phone: [phone] ALT [Catalytic activity/Vol] 20 U/L 13-56 [facility] Work Phone: [phone] CO2 [Moles/Vol] 29.0 mmol/L 21.0-32.0 [facility] Work Phone: Globulin (S) [Mass/Vol] 3.8 g/dL 2.2-4.2 [facility] Work Phone: [phone] Urea nitrogen/Creatinine [Mass ratio] 14.6 mg/mg 10-20 [facility] Work Phone: [phone] Laboratory - Hematology and Cell countson 07-12-2021 Erythrocyte distribution width (RBC) [Entitic vol] 46.7 fL 35.1-43.[address] [facility] Work Phone: Erythrocyte distribution width (RBC) [Ratio] 14.4 % 11.6-14.6 [facility] Work Phone: [phone] Immature granulocytes/100 WBC (Bld) 0.600 % 0.0-0.9 [facility] Work Phone: [phone] Comment on above: IG% - Immature Granu locytes (promyelocytes, myelocytes and metamyelocytes) > 1% indicates that a LEFT SHIFT is Present. MCH (RBC) [Entitic mass] 28.4 pg 27.0-32.0 [facility] Work Phone: [phone] Nucleated RBC/100 WBC (Bld) [Ratio] 0 % 0-5 [facility] Work Phone: [phone] MCHC Auto (RBC) [Mass/Vol]on 07-12-2021 MCHC (RBC) [Mass/Vol] 31.9 g/dL 32-36 [facility] Work Phone: No Panel Informationon 07-12 Estimated GFR (MDRD) Amer 47 mL/min >60 [facility] Work Phone: [phone] Comment on above: GFR Calc Estimated GFR (MDRD) Non-Af Amer 39 mL/min >60 [facility] Work Phone: [phone] Comment on above: Non- GFR Calc Thyroid Stimulating Hormone (TSH) 3.17 uIU/mL 0.358-3.74 [facility] Work Phone: [phone] Vitamin D 25-Hydroxy 61.9 ng/mL [facility] Work Phone: [phone] Comment on above: Vitamin D 25(OH) Sta tus Range Deficiency <20 ng/mL (50nmol/L) Insufficiency 20 - 30 ng/mL (50 - 75 nmol/L) Sufficiency 30 - 100 ng/mL (75 - 250 nmol/L) Toxicity >100 ng/mL (>250 nmol/L) Platelets bldon 07-12-2021 Platelets (Bld) [#/Vol] 315 10*3/uL 150-450 [facility] Work Phone: Serum or plasma albumin bob urement (mass/volume)on 07-12-2021 Albumin [Mass/Vol] 3.3 g/dL 3.2-5.[address] [facility] Work Phone: Serum or plasma albumin/glob ulin mass ratioon 07-12-2021 Albumin/Globulin [Mass ratio] 0.9 {ratio} 0.9-2.4 [facility] Work Phone: Serum or plasma calcium bob urement (mass/volume)on 07-12-2021 Calcium [Mass/Vol] 8.7 mg/dL 8.5-10.[address] [facility] Work Phone: Serum or plasma creatinine m easurement (mass/volume)on 07-12-2021 Creatinine [Mass/Vol] 1.37 mg/dL 0.55-1.02 [facility] Work Phone: Comment on above: The validity of the calculated GFR & GFRAA in patients over 70 years has not been determined. Clinical correlation is essential. Serum or plasma urea nitroge n measurement (mass/volume)on 07-12-2021 Urea nitrogen [Mass/Vol] 20 mg/dL 7-18 [facility] Work Phone: Thin prep Papanicolaou smear with manual screeningon 07-12-2021 Thin prep Papanicolaou smear with manual screening 15 U/L 15-37 [facility] Work Phone: Thin prep Papanicolaou smear with manual screening 6 5-15 [facility] Work Phone: CNPTOUTREACHon 04-15-2020 CNPTOUTREACH Patient Outreach ([id number]) TONJA SÁNCHEZ ([id number]) 1940 F Date Time Provider Department 04/15/20 LORRAINE SANDOVAL During your visit today, we recorded the following information about you: Allergies As of Date: 04/15/2020 Noted Allergy Reaction SULFA (SULFONAMIDE ANTIBIOTICS) 05/02/2005 Date Reviewed: 04/07/2018 Reviewed by: Senait Flaherty LPN - Fully Assessed Order(s):SARS-COVID VACCINE 1ST DOSE APPT [[id number]] Order #: [id number] FUTURE Prescriptions as of 04/15/2020 Sig: DOXAZOSIN 8 MG TABLET 1 tablet once daily. HYDROXYZINE HCL 25 MG TABLET Take 25 mg by mouth twice christy* LORATADINE 10 MG TABLET Take 10 mg by mouth once mary kay* LEVOTHYROXINE 175 MCG TABLET Take 175 mcg by mouth once da* CRESTOR 40 MG TABLET Take 40 mg by mouth once mary kay* ELIQUIS 2.5 MG TABLET Take 2.5 mg by mouth once christy* NAPROXEN SODIUM 220 MG TABLET Take 220 mg by mouth as neede* OMEGA-3 FATTY ACIDS-VITAMIN E* Take 1 capsule by mouth once * PRESERVISION AREDS 2 ORAL Take 1 capsule by mouth once * OXYBUTYNIN CHLORIDE 5 MG TABL* Take 5 mg by mouth twice mary kay* AMIODARONE 200 MG TABLET Take 200 mg by mouth once christy* GLIMEPIRIDE 2 MG TABLET Take 2 mg by mouth twice mary kay* METOPROLOL TARTRATE 50 MG TAB* Take two tablets by mouth twi* VITAMIN D2 1,250 MCG (50,000 * Take 50,000 Units by mouth on* FUROSEMIDE 40 MG TABLET Take 40 mg by mouth once mary kay* Problem List As Of Date 04/15/2020 Noted Resolved PERS HX COLONIC POLYPS [Z86.010] More... HEMORRHOIDS NOS [K64.9] 10/24/2005 More... HYPERLIPIDEMIA NEC/NOS [E78.5] BENIGN HYPERTENSION [I10] 02/03/2007 UNSP ABNORMAL MAMMOGRAM (Bilateral) [R92.8] 05/22/2005 OTHER ABNORMAL GLUCOSE [R73.09] 05/25/2005 10/24/2005 Diverticulosis of large intestine [K57.30] 08/03/2005 BENIGN NEOPLASM LG BOWEL [D12.6] 08/03/2005 10/24/2005 OBESITY NOS [E66.9] 10/24/2005 DYSMETABOLIC SYNDROME X [E88.81] 10/24/2005 HYPERTENSION NOS [I10] 02/03/2007 CHRONIC AIRWAY OBSTRUCTION NEC [J44.9] 02/12/2007 URINARY INCONTINENCE, UNSPECIFIED [R32] 03/26/2008 INSOMNIA NOS [G47.00] 03/26/2008 MALAISE AND FATIGUE NEC [R53.81, R53.83] 03/26/2008 Breast cancer [C50.919] 06/07/2011 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, Z17.0] 07/19/2011 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] 07/18/2015 Encounter Status:Closed by LILY VILLALOBOS on 04/18/20 [facility] Office Visit: Hypersomniaon 01-16-2017 Dietary management education, guidance, and counseling (procedure) yes Invalid Interpretation Code [facility] Phone: Documentation of current medications (procedure) Done Invalid Interpretation Code [facility] Phone: Tobacco smoking status NHIS Never Inva lid Interpretation Code [facility] Work Phone: Tobacco use [facility] Former smoker Invalid Interpretation Code [facility] Work Phone: Lab Report: Basic Metabolic Profile (BMP)on 01-03-2017 Anion gap 7 mmol/L Invalid Interpretation Code 5-15 [facility] Work Phone: BUN/Creatinine Ratio 15.9 RATIO Invalid Interpretation Code 10-20 [facility] Work Phone: Calcium 8.5 mg/dL Invalid Interpretation Code 8.5-10.1 [facility] Work Phone: Chloride 110 mmol/L High 98-107 [facility] Work Phone: CO2 29.0 mmol/L Invalid Interpretation Code 21.0-32.0 [facility] Work Phone: Creatinine 1.51 mg/dL High 0.55-1.02 [facility] Phone: [phone] eGFR (non-black) 43 mL/min/{1.73_m2} Low >60 [facility] Phone: eGFR (non-black) 35 mL/min/{1.73_m2} Low >60 [facility] Phone: Glucose mass conc 128 mg/dL High 70-110 [facility] Work Phone: [phone] Potassium molar conc 3.9 mmol/L Invalid Interpretation Code 3.5-5.1 [facility] Phone: Sodium 146 mmol/L High 136-145 [facility] Work Phone: Urea nitrogen 24 mg/dL High 7-18 [facility] Phone: Office Visit: [facility] 12-18-19 Fall risk assessment No Invalid Interpretation Code [facility] Work Phone: [phone] Protein mass conc Done Invalid Interpretation Code [facility] [facility] Work Phone: [phone] Replaced Document: Shabbir Rubio 12-17-2016 EKG QRS axis 67 deg Invalid Interpretation Code [facility] Work Phone: [phone] P [place] -4 deg Invalid Interpretation Code [employer] [facility] Work Phone: [phone] Interval 168 ms Invalid Interpretation Code [facility] Work Phone: [phone] Pulse (Heart Rate) 47 /min Invalid Interpretation Code [facility] Work Phone: [phone] QRS Duration 150 ms Invalid Interpretation Code [employer] Work Phone: [phone] QT Interval new path ms Invalid Interpretation Code [facility] Work Phone: [phone] QTc [place] 490 ms Invalid Interpretation Code [employer] Work Phone: [phone] [place] -19 deg Invalid Interpretation Code [facility] Work Phone: [phone] Urea nitrogen mass conc (Bld) Marked sinus Bradycardia -Right bundle branch block. - Nonspecific T-abnormality. ABNORMAL Invalid Interpretation Code [employer] [facility] Work Phone: [phone] Office Visit: new patient, h ospital follow upon 12-07-2016 Dietary management education, guidance, and counseling (procedure) yes Invalid Interpretation Code [facility] Work Phone: [phone] Documentation of current medications (procedure) Done Invalid Interpretation Code [facility] Work Phone: [phone] Protein mass conc Done [facility] Work Phone: Tobacco smoking status NCIS Never Inva lid Interpretation Code [facility] [facility] [employer] Work Phone: Tobacco smoking status [facility] Former smoker Inva lid Interpretation Code [facility] [employer] Work Phone: Tobacco use [facility] Former smoker Invalid Interpretation Code [facility] Work Phone: [phone] Office Visiton 10-18-2016 Documentation of current medications (procedure) Done Invalid Interpretation Code [facility] Work Phone: [phone] Fall risk assessment No Invalid Interpretation Code [facility] Work Phone: [phone] Protein mass conc Done [facility] Work Phone: [phone] Clinical Lists Update: Pre head of cytogenetics 10-12-2016 Left ventricular Ejection fraction 65 % Invalid Interpretation Code [facility] Work Phone: [phone] Office Visit: [facility] 04-06-19 Documentation of current medications (procedure) Done Invalid Interpretation Code [facility] Work Phone: [phone] Protein mass conc Done [facility] Work Phone: [phone] Clinical Lists Update: Pre head of cytogenetics 04-04-2016 Left ventricular Ejection fraction 65 % Invalid Interpretation Code [facility] Work Phone: [phone] Replaced Document: Álvaromark E CG Observationson 10-04-2015 BUN (urea nitrogen) Sinus Bradycardia -With rate variation cv = 10.-Right bundle branch block. -Inferior infarct -age undetermined. - Nonspecific T-abnormality. ABNORMAL Invalid Interpretation Code [facility] Work Phone: [phone] EKG QRS axis 30 deg Invalid Interpretation Code [facility] Work Phone: [phone] GE use only - for [employer] import when terms are not otherwise specified 483 ms Invalid Interpretation Code [employer] Work Phone: Interpretation Sinus Bradycardia -With rate variation cv = 10.-Right bundle branch block. -Inferior infarct -age undetermined. - Nonspecific T-abnormality. ABNORMAL Invalid Interpretation Code [employer] Work Phone: P [place] -20 deg Invalid Interpretation Code [employer] Work Phone: P wave axis, electrocardiogram -20 deg Invalid Interpretation Code [employer] Work Phone: WI Interval 156 ms Invalid Interpretation Code [employer] Work Phone: WI interval, electrocardiogram 156 ms Invalid Interpretation Code [employer] Work Phone: [phone] Pulse (Heart Rate) 57 /min Invalid Interpretation Code [employer] Work Phone: QRS axis, electrocardiogram 30 deg Inva lid Interpretation Code [employer] Work Phone: [phone] QRS Duration 142 ms Invalid Interpretation Code [employer] Work Phone: [phone] QRS duration, electrocardiogram 142 ms Invalid Interpretation Code [employer] Work Phone: QT Interval new path ms Invalid Interpretation Code [employer] Work Phone: QT interval, electrocardiogram new path ms Invalid Interpretation Code [employer] Work Phone: QTc Murray 483 ms Invalid Interpretation Code [employer] Work Phone: [phone] T [place] -20 deg Invalid Interpretation Code [employer] Work Phone: [phone] T wave axis, electrocardiogram -20 deg Invalid Interpretation Code [employer] Work Phone: Clinical Lists Update: Prelo head of cytogenetics 09-01-2015 Alanine aminotransferase (ALT) 21 U/L Invalid Interpretation Code [employer] Work Phone: Alkaline phosphatase (ALP) 74 U/L Inval id Interpretation Code [employer] Work Phone: ALP enzyme act/vol (Bld) 74 U/L Invalid Interpretation Code [employer] Work Phone: [phone] Aspartate aminotransferase (AST) 15 U/L Invalid Interpretation Code [employer] Work Phone: BUN/Creatinine Ratio 12.7 mg/mg Invalid Interpretation Code [employer] Work Phone: [phone] Calcium 8.4 mg/dL Invalid Interpretation Code [employer] Work Phone: [phone] Chloride 110 mmol/L Invalid Interpretation Code [employer] Work Phone: [phone] CO2 26.0 mmol/L Invalid Interpretation Code [employer] Work Phone: [phone] CO2 ppres (BldV) 26.0 mmol/L Invalid Interpretation Code [employer] Work Phone: [phone] Creatinine 1.57 mg/dL Invalid Interpretation Code [employer] Work Phone: [phone] Glucose 107 mg/dL Invalid Interpretation Code [employer] Work Phone: [phone] Glucose mass conc 107 mg/dL Invalid Interpretation Code [employer] Work Phone: [phone] Hematocrit (HCT) 38.1 % Invalid Interpretation Code [employer] Work Phone: [phone] Hematocrit Volume Fraction (Bld) 38.1 % [facility] Work Phone: [phone] Hemoglobin (HGB) 11.9 g/dL Invalid Interpretation Code [employer] Work Phone: [phone] Platelets 260 10*3/mm3 Invalid Interpretation Code [employer] Work Phone: [phone] Platelets #/vol (Bld) 260 10*3/mm3 [facility] [employer] Work Phone: [phone] Potassium 4.3 mmol/L Invalid Interpretation Code [employer] Work Phone: [phone] Protein 6.3 g/dL Invalid Interpretation Code [employer] Work Phone: [phone] Sodium 144 mmol/L Invalid Interpretation Code [employer] Work Phone: [phone] Thyroid stimulating hormone (TSH) 3.44 u[iU]/mL Invalid Interpretation Code [employer] Work Phone: [phone] Urea nitrogen 20 mg/dL Invalid Interpretation Code [employer] Work Phone: [phone] WBC #/vol (Bld) 8.0 10*3/uL [facility] Work Phone: [phone] WBC (Leukocytes) 8.0 10*3/uL Invalid Interpretation Code [facility] Work Phone: [phone]) Lab Report: Basic Metabolic Profile (BMP)on 05-13-2015 Anion gap 5 mmol/L Invalid Interpretation Code 5-15 [facility] Work Phone: [phone] Anion gap 4 molar conc 5 Invalid Interpretation Code 5-15 [facility] Work Phone: [phone] Anion gap molar conc 5 mmol/L 5-[address] [facility] Work Phone: [phone] eGFR (non-black) 40 mL/min/{1.73_m2} Low >60 [facility] Work Phone: [phone] eGFR (non-black) 48 mL/min/{1.73_m2} Low >60 [facility] Work Phone: [phone] EST GFR - AA 48 mL/min Low >60 [facility] Work Phone: [phone] Office Visit: [facility] 03-30-19 16 General cardiovascular disease 10Y risk [#] [place].D'Agost[place] 20 % Invalid Interpretation Code [facility] Work Phone: [phone] Tobacco smoking status NHIS Former smoker [facility] Work Phone: [phone] Tobacco use HS Former smoker Invalid Interpretation Code [facility] Work Phone: [phone] Microbiology: Culture, Fungu s 8482on 03-15-2015 fungus culture isolated from skin, hair, nails . Invalid Interpretation Code [facility] Work Phone: [phone] Office Visit: vaginitis- pro bably candidal; would d/c steroid creamon 02-09-2015 Dietary management education, guidance, and counseling (procedure) yes Invalid Interpretation Code [facility] Work Phone: [phone] Protein mass conc yes Invalid Interpretation Code [facility] Work Phone: [phone] Smoking cessation education (procedure) yes Invalid Interpretation Code [facility] Work Phone: [phone] Tobacco smoking status NHIS Never Inva lid Interpretation Code [facility] Work Phone: [phone] Lab Report: Liver Profileon 09-30-2014 Albumin 3.0 g/dL Low 3.4-5.0 [facility] Work Phone: [phone] Bilirubin (direct) 0.07 mg/dL Invalid Interpretation Code 0.00-0.30 [facility] Work Phone: [phone] Bilirubin (total) 0.30 mg/dL Invalid Interpretation Code 0.20-1.00 [facility] Work Phone: [phone] Globulin 3.4 g/dL Invalid Interpretation Code 2.7-4.2 [facility] Work Phone: [phone] Globulin mass conc (S) 3.4 g/dL 2.7-4.2 [facility] Work Phone: [phone]) Lab Report: T4 Total, Thyrox inon 09-30-2014 Thyroxine (T4) 20.7 ug/dL High 4.8-13.9 [facility] Work Phone: [phone]) Lab Report: CBC-Complete Blo od Cnt No Diffon 05-18-2014 Erythrocytes (RBC) 4.14 10*6/uL Critically low 4.2-5.4 [facility] Work Phone: [phone] MCH 30.4 pg Invalid Interpretation Code 27.0-32.0 [facility] Work Phone: [phone] Entitic mass (RBC) 30.4 pg 27.0-32.0 [facility] Work Phone: [phone] MCHC 32.3 G/GL Invalid Interpretation Code 32-36 [facility] Work Phone: [phone] MCHC mass conc (RBC) 32.3 G/GL 32-[address] [facility] Work Phone: [phone] MCV 94.2 fL Invalid Interpretation Code 81-99 [facility] Work Phone: [phone] MCV Entitic volume (RBC) 94.2 fL 81-99 [facility] Work Phone: [phone] Platelet mean volume Entitic volume (Bld) 11.4 fL 6.2-12.0 [facility] Work Phone: [phone] PMV by Adam-Danis 11.4 fL Invalid Interpretation Code 6.2-12.0 [facility] Work Phone: [phone] RBC #/vol (Bld) 4.14 10*6/uL Critically low 4.2-5.4 [facility] Work Phone: [phone] Office Visiton 05-18-2014 cardiac risk group C Invalid Interpretation Code [facility] Work Phone: [phone] Clinical Lists Update: 05-10-2014 basophils as percent of blood leukocytes, manual count 0.4 % Invalid Interpretation Code [facility] Work Phone: [phone] eosinophils as percent of blood leukocytes, manual count 1.9 % Invalid Interpretation Code [facility] Work Phone: [phone] Erythrocyte distribution width Ratio (RBC) 13.3 % [facility] Work Phone: [phone] Globulin 3.21.0 Invalid Interpretation Code [facility] Work Phone: [phone] Globulin mass conc (S) 3.21.0 [facility] Work Phone: [phone] Lymphocytes/100 leukocytes 17.9 % Low [facility] Work Phone: [phone] Lymphocytes/100 WBC (Bld) 17.9 % Low [facility] Work Phone: [phone] Monocytes/100 leukocytes 6.1 % Invalid Interpretation Code [facility] Work Phone: [phone] Monocytes/100 WBC (Bld) 6.1 % [facility] Work Phone: [phone] neutrophils, band form as percent of blood leukocytes, manual count 73.0 % High [facility] Work Phone: [phone] RDW-CA 13.3 % Invalid Interpretation Code [facility] Work Phone: [phone] Clinical Lists Update: 11-04-2013 Cholesterol 161 mg/dL Invalid Interpretation Code [facility] Work Phone: [phone] HDL Cholesterol 46 mg/dL Invalid Interpretation Code [facility] Work Phone: [phone] LDL Cholesterol 70 mg/dL Invalid Interpretation Code [facility] Work Phone: Triglyceride 226 mg/dL High [facility] Work Phone: [phone] Replaced Document: Shabbir Rubio 07-03-2013 Pulse (Heart Rate) 466 ms Invalid Interpretation Code [facility] Work Phone: [phone] Lab Report: BTNPon 4 BNP 95.0 pg/mL Normal 0-100 [facility] Work Phone: [phone] Lab Report: CBCDon 4 Absolute Neutrophil count 6.8 X10 3/UL Normal 2.0-7.7 [facility] Work Phone: [phone] ANC 6.8 X10 3/UL Normal 2.0-7.7 [facility] Work Phone: [phone] Basophils/100 leukocytes 0.5 % Normal 0-1 [facility] Work Phone: [phone] Basophils/100 WBC (Bld) 0.5 % Normal 0-1 [facility] Work Phone: [phone] Eosinophils/100 leukocytes 1.2 % Normal 0-5 [facility] Work Phone: [phone] Eosinophils/100 WBC (Bld) 1.2 % Normal 0-5 [facility] Work Phone: [phone] Neutrophils/100 leukocytes 64.8 % Normal 47-70 [facility] Work Phone: [phone] Neutrophils/100 WBC (Bld) 64.8 % Normal 47-70 [facility] Work Phone: [phone] COVID-19 virus antigen assay SARS-CoV-2 (COVID-19) Ag IA.rapid Ql (Resp) [facility] Work Phone: Culture, urine Bacteria identified Cx Nom (U) Mixed Gram Pos & Gram Neg Org [facility] Work Phone: Laboratory - Microbiology an d Antimicrobial susceptibility Bacteria identified Cx Nom (Bld) No growth in 5 days. [facility] Work Phone: No Panel Information Influenza Types A,B Direct FA (JAMILA) [facility] Work Phone: RSV Ag EIA RSV Ag Immune stain Ql (Tiss) [facility] Work Phone: Vital Signs Date Time Vital Sign Value Performing Clinician Facility 07-14-2024 11:12-0400 Body temperature 97.8 [degF] Dr. Alexy Douglas MD Work Phone: [facility] 07-14-2024 11:12-0400 Diastolic blood pressure 79 mm[Hg] Dr. Alexy Douglas MD Work Phone: 0(698)165-387823 [place] [address] 07-14-2024 11:12-0400 Heart rate 73 /min Dr. Alexy Douglas MD Work Phone: 9(038)357-747594 [place] [address] 07-14-2024 11:12-0400 Respiratory rate 18 /min Dr. Alexy Douglas MD Work Phone: 0(557)520-532994 [place] [address] 07-14-2024 11:12-0400 SaO2% (BldA) [Mass fraction] 96 % Dr. Alexy Douglas MD Work Phone: 1(099)801-094565 [address] 07-14-2024 11:12-0400 Systolic blood pressure 141 mm[Hg] Dr. Alexy Douglas MD Work Phone: 6(938)883-993423 [place] [address] 07-14-2024 06:37-0400 Inhaled oxygen flow rate 4 L/min Dr. Alexy Douglas MD Work Phone: 6(860)490-238023 [place] [address] 07-13-2024 14:10-0400 Body height 172.[address] Alexy Douglas MD Work Phone: 8(009)252-496823 [place] [address] 07-13-2024 14:10-0400 Body weight 122.[address] Alexy Douglas MD Work Phone: 1(653)697-827523 [place] [address] 07-07-2024 09:27-0400 Body mass index (BMI) [Ratio] 41.1 kg/m2 Dr. Alexy Douglas MD Work Phone: 8(059)811-866623 [place] [address] 07-06-2024 16:39-0400 Body temperature 97.9 [degF] Dr. Alexy Douglas MD Work Phone: 8(482)745-423023 [place] [address] 07-06-2024 16:39-0400 Diastolic blood pressure 81 mm[Hg] Dr. Alexy Douglas MD Work Phone: [facility] 07-06-2024 16:39-0400 Heart rate 82 /min Dr. Alexy Douglas MD Work Phone: [facility] 07-06-2024 16:39-0400 Inhaled oxygen flow rate 2 L/min Dr. Alexy Douglas MD Work Phone: [facility] 07-06-2024 16:39-0400 Respiratory rate 20 /min Dr. Alexy Douglas MD Work Phone: [facility] 07-06-2024 16:39-0400 SaO2% (BldA) [Mass fraction] 94 % Dr. Alexy Douglas MD Work Phone: [facility] 07-06-2024 16:39-0400 Systolic blood pressure 142 mm[Hg] Dr. Alexy Douglas MD Work Phone: [facility] 07-06-2024 14:37-0400 Body weight 122.[address] Alexy Douglas MD Work Phone: [facility] 07-06-2024 03:12-0400 Body mass index (BMI) [Ratio] 42.3 kg/m2 Dr. Alexy Douglas MD Work Phone: [facility] 06-30-2024 19:00-0400 Diastolic blood pressure 82 mm[Hg] Dr. Alexy Douglas MD Work Phone: [facility] 06-30-2024 19:00-0400 Heart rate 124 /min Dr. Alexy Douglas MD Work Phone: [facility] 06-30-2024 19:00-0400 Inhaled oxygen flow rate 4 L/min Dr. Alexy Douglas MD Work Phone: [facility] 06-30-2024 19:00-0400 Respiratory rate 24 /min Dr. Alexy Douglas MD Work Phone: [facility] 06-30-2024 19:00-0400 SaO2% (BldA) [Mass fraction] 95 % Dr. Alexy Douglas MD Work Phone: 8(060)146-121623 [place] [address] 06-30-2024 19:00-0400 Systolic blood pressure 128 mm[Hg] Dr. Alexy Douglas MD Work Phone: 6(527)513-335194 [place] [address] 06-30-2024 15:59-0400 Body temperature 98.8 [degF] Dr. Alexy Douglas MD Work Phone: 6(927)858-332394 [place] [address] 06-30-2024 12:27-0400 Body height [address] Alexy Douglas MD Work Phone: 4(492)057-757894 [place] [address] 06-30-2024 12:27-0400 Body mass index (BMI) [Ratio] 39.6 kg/m2 Dr. Alexy Douglas MD Work Phone: 7(527)211-666094 [place] [address] 06-30-2024 12:27-0400 Body weight 118.[address] Alexy Douglas MD Work Phone: 9(268)908-128394 [place] [address] 06-29-2024 07:14-0400 Body height 172.[address] Alexy Douglas MD Work Phone: 3(972)921-800194 [place] [address] 06-29-2024 07:14-0400 Body weight 115.[address] Alexy Douglas MD Work Phone: 8(400)880-285494 [place] [address] 06-26-2024 13:56-0400 Body mass index (BMI) [Ratio] 38.7 kg/m2 Dr. Alexy Douglas MD Work Phone: 4(175)149-429694 [place] [address] 06-26-2024 13:56-0400 Body weight 115.[address] Alexy Douglas MD Work Phone: 0(055)624-648794 [place] [address] 06-26-2024 13:56-0400 Diastolic blood pressure 75 mm[Hg] Dr. Alexy Douglas MD Work Phone: 8(359)007-958494 [place] [address] 06-26-2024 13:56-0400 Heart rate 78 /min Dr. Alexy Douglas MD Work Phone: 1(504)215-339494 [place] [address] 06-26-2024 13:56-0400 Respiratory rate 18 /min Dr. Alexy Douglas MD Work Phone: 2(071)850-025094 [place] [address] 06-26-2024 13:56-0400 SaO2% (BldA) [Mass fraction] 93 % Dr. Alexy Douglas MD Work Phone: 7(357)904-120023 [place] [address] 06-26-2024 13:56-0400 Systolic blood pressure 124 mm[Hg] Dr. Alexy Douglas MD Work Phone: 4(220)475-990723 [place] [address] 06-26-2024 07:55-0400 Body mass index (BMI) [Ratio] 38.7 kg/m2 Dr. Alexy Douglas MD Work Phone: 8(726)359-529223 [place] [address] 05-14-2024 14:47-0500 Body mass index (BMI) [Ratio] 38.7 kg/m2 Dr. Alexy Douglas MD Work Phone: 2(561)090-249123 [place] [address] 05-14-2024 14:47-0500 Body weight 115.[address] Alexy Douglas MD Work Phone: 7(886)062-900294 [place] [address] 05-14-2024 14:47-0500 Diastolic blood pressure 76 mm[Hg] Dr. Alexy Douglas MD Work Phone: 3(360)149-015723 [place] [address] 05-14-2024 14:47-0500 Heart rate 86 /min Dr. Alexy Douglas MD Work Phone: 8(619)563-566094 [place] [address] 05-14-2024 14:47-0500 Respiratory rate 20 /min Dr. Alexy Douglas MD Work Phone: 4(711)483-024423 [place] [address] 05-14-2024 14:47-0500 Systolic blood pressure 153 mm[Hg] Dr. Alexy Douglas MD Work Phone: 4(640)602-393723 [place] [address] 04-28-2024 15:23-0500 Inhaled oxygen flow rate 4 L/min Dr. Alexy Douglas MD Work Phone: 3(326)613-286523 [place] [address] 04-28-2024 13:53-0500 SaO2% (BldA) [Mass fraction] 97 % Dr. Alexy Douglas MD Work Phone: 0(538)337-776723 [place] [address] 04-28-2024 09:55-0500 Body weight 120.[address] Alexy Douglas MD Work Phone: 9(499)077-625023 [place] [address] 04-28-2024 09:10-0500 Heart rate 74 /min Dr. Alexy Douglas MD Work Phone: 5(861)098-944923 [place] [address] 04-28-2024 09:06-0500 Body temperature 97.8 [degF] Dr. Alexy Douglas MD Work Phone: 9(905)927-974623 [place] [address] 04-28-2024 09:06-0500 Diastolic blood pressure 78 mm[Hg] Dr. Alexy Douglas MD Work Phone: 1(954)694-946223 [place] [address] 04-28-2024 09:06-0500 Respiratory rate 17 /min Dr. Alexy Douglas MD Work Phone: 3(371)668-904694 [place] [address] 04-28-2024 09:06-0500 Systolic blood pressure 138 mm[Hg] Dr. Alexy Douglas MD Work Phone: 8(590)305-485094 [place] [address] 04-28-2024 04:12-0500 Body mass index (BMI) [Ratio] 40.4 kg/m2 Dr. Alexy Douglas MD Work Phone: 2(596)999-491823 [place] [address] 04-20-2024 14:00-0500 Body temperature 96.9 [degF] Dr. Alexy Douglas MD Work Phone: 1(424)773-894223 [place] [address] 04-20-2024 14:00-0500 Diastolic blood pressure 90 mm[Hg] Dr. Alexy Douglas MD Work Phone: 9(860)165-272423 [place] [address] 04-20-2024 14:00-0500 Heart rate 105 /min Dr. Alexy Douglas MD Work Phone: 9(741)851-331923 [place] [address] 04-20-2024 14:00-0500 Inhaled oxygen flow rate 4 L/min Dr. Alexy Douglas MD Work Phone: 2(651)566-297323 [place] [address] 04-20-2024 14:00-0500 Respiratory rate 18 /min Dr. Alexy Douglas MD Work Phone: 8(795)953-112923 [place] [address] 04-20-2024 14:00-0500 Systolic blood pressure 186 mm[Hg] Dr. Alexy Douglas MD Work Phone: 2(216)498-469323 [place] [address] 04-07-2024 12:25-0500 Body temperature 97.7 [degF] Dr. Alexy Douglas MD Work Phone: 3(002)779-420123 [place] [address] 04-07-2024 12:25-0500 Diastolic blood pressure 89 mm[Hg] Dr. Alexy Douglas MD Work Phone: 8(270)578-237894 [place] [address] 04-07-2024 12:25-0500 Heart rate 96 /min Dr. Alexy Douglas MD Work Phone: 6(352)513-726794 [place] [address] 04-07-2024 12:25-0500 Inhaled oxygen flow rate 4 L/min Dr. Alexy Douglas MD Work Phone: 5(836)545-220994 [place] [address] 04-07-2024 12:25-0500 Respiratory rate 18 /min Dr. Alexy Douglas MD Work Phone: 7(635)375-838994 [place] [address] 04-07-2024 12:25-0500 SaO2% (BldA) [Mass fraction] 97 % Dr. Alexy Douglas MD Work Phone: 9(554)085-908294 [place] [address] 04-07-2024 12:25-0500 Systolic blood pressure 145 mm[Hg] Dr. Alexy Douglas MD Work Phone: 5(602)056-025994 [place] [address] 04-07-2024 06:00-0500 Body mass index (BMI) [Ratio] 41.8 kg/m2 Dr. Alexy Douglas MD Work Phone: 4(214)096-093494 [place] [address] 04-07-2024 06:00-0500 Body weight 124.[address] Alexy Douglas MD Work Phone: 3(405)866-417394 [place] [address] 04-06-2024 10:13-0500 Inhaled oxygen concentration 50 % Dr. Alexy Douglas MD Work Phone: 5(399)657-630394 [place] [address] 04-01-2024 08:48-0500 Body mass index (BMI) [Ratio] 42.1 kg/m2 Dr. Alexy Douglas MD Work Phone: 4(127)129-707794 [place] [address] 04-01-2024 08:48-0500 Body temperature 95.5 [degF] Dr. Alexy Douglas MD Work Phone: 4(642)533-608494 [place] [address] 04-01-2024 08:48-0500 Body weight 122.[address] Alexy Douglas MD Work Phone: 6(654)570-682523 [place] [address] 04-01-2024 08:48-0500 Diastolic blood pressure 76 mm[Hg] Dr. Alexy Douglas MD Work Phone: 6(302)443-282594 [place] [address] 04-01-2024 08:48-0500 Heart rate 67 /min Dr. lAexy Douglas MD Work Phone: 7(809)206-509194 [place] [address] 04-01-2024 08:48-0500 Inhaled oxygen flow rate 4 L/min Dr. Alexy Douglas MD Work Phone: 7(310)338-337194 [place] [address] 04-01-2024 08:48-0500 Respiratory rate 22 /min Dr. Alexy Douglas MD Work Phone: 4(860)525-027594 [place] [address] 04-01-2024 08:48-0500 SaO2% (BldA) [Mass fraction] 93 % Dr. Alexy Douglas MD Work Phone: 5(935)853-507594 [place] [address] 04-01-2024 08:48-0500 Systolic blood pressure 151 mm[Hg] Dr. Alexy Douglas MD Work Phone: 1(084)065-912094 [place] [address] 03-18-2024 13:12-0500 Body temperature 97.3 [degF] Dr. Alexy Douglas MD Work Phone: 9(746)358-900494 [place] [address] 03-18-2024 13:12-0500 Diastolic blood pressure 80 mm[Hg] Dr. Alexy Douglas MD Work Phone: 9(467)126-430594 [place] [address] 03-18-2024 13:12-0500 Heart rate 85 /min Dr. Alexy Douglas MD Work Phone: 3(824)088-973323 [place] [address] 03-18-2024 13:12-0500 Inhaled oxygen flow rate 4 L/min Dr. Alexy Douglas MD Work Phone: 2(278)247-612323 [place] [address] 03-18-2024 13:12-0500 Respiratory rate 18 /min Dr. Alexy Douglas MD Work Phone: 2(176)475-170294 [place] [address] 03-18-2024 13:12-0500 SaO2% (BldA) [Mass fraction] 95 % Dr. Alexy Douglas MD Work Phone: [facility] 03-18-2024 13:12-0500 Systolic blood pressure 135 mm[Hg] Dr. Alexy Douglas MD Work Phone: [facility] 03-18-2024 03:50-0500 Body mass index (BMI) [Ratio] 40.6 kg/m2 Dr. Alexy Douglas MD Work Phone: [facility] 03-18-2024 03:50-0500 Body weight 117.[address] Alexy Douglas MD Work Phone: [facility] 03-16-2024 14:00-0500 Inhaled oxygen concentration 30 % Dr. Alexy Douglas MD Work Phone: [facility] 07-19-2023 11:18-0400 Body temperature 98.06 [degF] LIAT GARDINER MD [facility] 07-19-2023 11:18-0400 Diastolic Blood Pressure Non-Invasive 88 mm[Hg] LIAT GARDINER MD [facility] 07-19-2023 11:18-0400 Heart rate 111 /min LIAT GARDINER MD [facility] 07-19-2023 11:18-0400 Mean blood pressure 104 mm[Hg] [facility] [facility] 07-19-2023 11:18-0400 Reason For Taking VItal Signs LIAT GARDINER MD [facility] 07-19-2023 11:18-0400 Respiratory rate 22 /min LIAT GARDINER MD [facility] 07-19-2023 11:18-0400 Systolic Blood Pressure Non-Invasive 136 mm[Hg] LIAT GARDINER MD [facility] 07-19-2023 11:01-0400 Heart rate 101 /min LIAT GARDINER MD [address] [place] [address] 07-19-2023 11:01-0400 Respiratory rate 20 /min LIAT GARDINER MD [address] [place] [address] 07-19-2023 09:30-0400 Heart rate 120 /min LIAT GARDINER MD [address] 07-19-2023 06:57-0400 Body temperature 98.6 [degF] LIAT GARDINER MD [address] [place] [address] 07-19-2023 06:57-0400 Diastolic Blood Pressure Non-Invasive 92 mm[Hg] LIAT GARDINER MD [address] 07-19-2023 06:57-0400 Heart rate 108 /min LIAT GARDINER MD [address] 07-19-2023 06:57-0400 Mean blood pressure 107 mm[Hg] LIAT GARDINER MD [address] 07-19-2023 06:57-0400 Reason For Taking VItal Signs LIAT GARDINER MD [address] 07-19-2023 06:57-0400 Respiratory rate 20 /min LIAT GARDINER MD [address] 07-19-2023 06:57-0400 Systolic Blood Pressure Non-Invasive 147 mm[Hg] LIAT GARDINER MD [address] [place] [address] 07-19-2023 06:47-0400 Heart rate 107 /min LIAT GARDINER MD [address] [place] [address] 07-19-2023 04:11-0400 Body temperature 98.78 [degF] LIAT GARDINER MD [address] 07-19-2023 04:11-0400 Diastolic Blood Pressure Non-Invasive 62 mm[Hg] LIAT GARDINER MD [address] [place] [address] 07-19-2023 04:11-0400 Heart rate 107 /min LIAT GARDINER MD [facility] 07-19-2023 04:11-0400 Reason For Taking VItal Signs LIAT GARDINER MD [facility] 07-19-2023 04:11-0400 Systolic Blood Pressure Non-Invasive 156 mm[Hg] LIAT GARDINER MD [address] [place] [address] 07-18-2023 23:29-0400 Mean blood pressure 109 mm[Hg] LIAT GARDINER MD [address] [place] [address] 07-18-2023 19:11-0400 Heart rate 101 /min LIAT GARDINER MD [address] [place] [address] 07-18-2023 17:18-0400 Heart rate 100 /min LIAT GARDINER MD [address] [place] [address] 07-18-2023 15:28-0400 Body temperature 97.52 [degF] LIAT GARDINER MD [address] [place] [address] 07-18-2023 08:27-0400 Heart rate 111 /min LIAT GARDINER MD [facility] 07-16-2023 23:54-0400 Body temperature 99.14 [degF] LIAT GARDINER MD [facility] 07-14-2023 14:20-0400 Blood Pressure Cuff Size LIAT GARDINER MD [facility] 07-14-2023 14:20-0400 Blood Pressure Location LIAT GARDINER MD [facility] 07-14-2023 14:20-0400 Blood Pressure Method LIAT GARDINER MD [facility] 07-14-2023 12:43-0400 Blood Pressure Cuff Size LIAT GARDINER MD [facility] 07-14-2023 12:43-0400 Blood Pressure Location LIAT GARDINER MD [facility] 07-14-2023 12:43-0400 Blood Pressure Method LIAT GARDINER MD [facility] 07-14-2023 07:18-0400 Blood Pressure Cuff Size LIAT GARDINER MD [facility] 07-14-2023 07:18-0400 Blood Pressure Location LIAT GARDINER MD [facility] 07-14-2023 07:18-0400 Blood Pressure Method LIAT GARDINER MD [facility] 07-14-2023 04:27-0400 SaO2% (BldA) [Mass fraction] 89.0 % LIAT GARDINER MD [facility] 07-13-2023 04:13-0400 Body temperature 97.88 [degF] LIAT GARDINER MD [facility] 07-13-2023 04:13-0400 SaO2% (BldA) [Mass fraction] 96.7 % LIAT GARDINER MD [facility] 07-12-2023 20:24-0400 SaO2% (BldA) [Mass fraction] 94.5 % LIAT GARDINER MD [facility] 07-10-2023 16:30-0400 Diastolic blood pressure 79 mm[Hg] LIAT GARDINER MD [facility] 07-10-2023 16:30-0400 Mean blood pressure 82 mm[Hg] LIAT GARDINER MD [facility] 07-10-2023 16:30-0400 Systolic blood pressure 87 mm[Hg] LIAT GARDINER MD [facility] 07-10-2023 16:00-0400 Diastolic blood pressure 73 mm[Hg] LIAT GARDINER MD [facility] 07-10-2023 16:00-0400 Mean blood pressure 76 mm[Hg] LIAT GARDINER MD [facility] 07-10-2023 16:00-0400 Systolic blood pressure 79 mm[Hg] LIAT GARDINER MD [address] [place] [address] 07-10-2023 15:53-0400 Diastolic blood pressure 77 mm[Hg] LIAT GARDINER MD [address] [place] [address] 07-10-2023 15:53-0400 Mean blood pressure 80 mm[Hg] LIAT GARDINER MD [address] [place] [address] 07-10-2023 15:53-0400 Systolic blood pressure 84 mm[Hg] LIAT GARDINER MD [address] [place] [address] 07-10-2023 11:05-0400 Respiratory Rate - Anes 21 br/min LIAT GARDINER MD [facility] 07-10-2023 11:00-0400 Respiratory Rate - Anes 6 br/min LIAT GARDINER MD [address] [place] [address] 07-10-2023 10:55-0400 Respiratory Rate - Anes 12 br/min LIAT GARDINER MD [facility] 07-10-2023 06:17-0400 Body weight 41.04 kg/m2 LIAT GARDINER MD [address] [place] [address] 07-10-2023 06:09-0400 Body height 172.7 cm LIAT GARDINER MD [facility] 07-10-2023 06:09-0400 Body temperature 97.7 [degF] LIAT GARDINER MD [address] [place] [address] 07-10-2023 06:09-0400 Body weight 122.4 kg LIAT GARDINER MD [facility] 07-05-2023 11:15-0400 Diastolic blood pressure 57 mm[Hg] Dr. Alexy Douglas Work Phone: [facility] 07-05-2023 11:15-0400 Heart rate 95 /min Dr. Alexy Douglas Work Phone: [facility] 07-05-2023 11:15-0400 Respiratory rate 30 /min Dr. Alexy Douglas Work Phone: [facility] 07-05-2023 11:15-0400 Systolic blood pressure 134 mm[Hg] Dr. Alexy Douglas Work Phone: [facility] 07-03-2023 12:48-0400 Blood Pressure Cuff Size LIAT GARDINER MD [facility] 07-03-2023 12:48-0400 Blood Pressure Location LIAT GARDINER MD [facility] 07-03-2023 12:48-0400 Blood Pressure Method LIAT GARDINER MD [facility] 07-03-2023 12:48-0400 Body height 171.5 cm LIAT GARDINER MD [facility] 07-03-2023 12:48-0400 Body temperature 97.52 [degF] LIAT GARDINER MD [facility] 07-03-2023 12:48-0400 Body weight 121.5 kg ILAT GARDINER MD [address] [place] [address] 07-03-2023 12:48-0400 Diastolic Blood Pressure Non-Invasive 84 mm[Hg] LIAT GARDINER MD [facility] 07-03-2023 12:48-0400 Heart rate 90 /min LIAT GARDINER MD [address] [place] [address] 07-03-2023 12:48-0400 Systolic Blood Pressure Non-Invasive 151 mm[Hg] LIAT GARDINER MD [facility] 06-27-2023 08:36-0400 Diastolic blood pressure 55 mm[Hg] Dr. Alexy Douglas Work Phone: [facility] 06-27-2023 08:36-0400 Heart rate 62 /min Dr. Alexy Douglas Work Phone: [facility] 06-27-2023 08:36-0400 Respiratory rate 18 /min Dr. Alexy Douglas Work Phone: [facility] 06-27-2023 08:36-0400 Systolic blood pressure 111 mm[Hg] Dr. Alexy Douglas Work Phone: [facility] 06-17-2023 12:47-0400 Body height 172.[address] Alexy Douglas Work Phone: [facility] 06-17-2023 12:47-0400 Body weight 115.[address] Alexy Douglas Work Phone: [facility] 06-17-2023 12:47-0400 Heart rate 94 /min Dr. Alexy Douglas Work Phone: [facility] 06-17-2023 12:47-0400 SaO2% (BldA) [Mass fraction] 91 % Dr. Alexy Douglas Work Phone: [facility] 06-17-2023 08:33-0400 Body temperature 97.8 [degF] Dr. Alexy Douglas Work Phone: [facility] 06-17-2023 08:33-0400 Diastolic blood pressure 57 mm[Hg] Dr. Alexy Douglas Work Phone: [facility] 06-17-2023 08:33-0400 Respiratory rate 20 /min Dr. Alexy Douglas Work Phone: [facility] 06-17-2023 08:33-0400 Systolic blood pressure 108 mm[Hg] Dr. Alexy Douglas Work Phone: [facility] 06-10-2023 13:06-0400 Body height [address] Alexy Douglas Work Phone: 6(051)384-747923 [place] [address] 06-10-2023 13:06-0400 Body mass index (BMI) [Ratio] 38.6 kg/m2 Dr. Alexy Douglas Work Phone: 8(592)045-407923 [place] [address] 06-10-2023 13:06-0400 Body weight 115.[address] Alexy Douglas Work Phone: 0(304)841-628223 [place] [address] 06-10-2023 13:06-0400 Diastolic blood pressure 77 mm[Hg] Dr. Alexy Douglas Work Phone: 3(624)327-981694 [place] [address] 06-10-2023 13:06-0400 Heart rate 77 /min Dr. Alexy Douglas Work Phone: 7(216)943-694894 [place] [address] 06-10-2023 13:06-0400 Respiratory rate 20 /min Dr. Alexy Douglas Work Phone: 3(023)965-336694 [place] [address] 06-10-2023 13:06-0400 SaO2% (BldA) [Mass fraction] 92 % Dr. Alexy Douglas Work Phone: 9(030)660-052894 [place] [address] 06-10-2023 13:06-0400 Systolic blood pressure 121 mm[Hg] Dr. Alexy Douglas Work Phone: 7(752)300-547594 [place] [address] 06-06-2023 08:43-0400 Diastolic blood pressure 82 mm[Hg] Dr. Alexy Douglas Work Phone: 7(804)150-649423 [place] [address] 06-06-2023 08:43-0400 Heart rate 70 /min Dr. Alexy Douglas Work Phone: 9(555)006-073323 [place] [address] 06-06-2023 08:43-0400 Respiratory rate 20 /min Dr. Alexy Douglas Work Phone: 1(891)290-104294 [place] [address] 06-06-2023 08:43-0400 Systolic blood pressure 124 mm[Hg] Dr. Alexy Douglas Work Phone: 4(884)626-566923 [place] [address] 05-31-2023 08:00-0400 Body mass index (BMI) [Ratio] 39.6 kg/m2 Dr. Alexy Douglas Work Phone: [facility] 05-31-2023 08:00-0400 Body temperature 98 [degF] Dr. Alexy Douglas Work Phone: [facility] 05-31-2023 08:00-0400 Body weight 118.[address] Alexy Douglas Work Phone: [facility] 05-31-2023 08:00-0400 Diastolic blood pressure 84 mm[Hg] Dr. Alexy Douglas Work Phone: 5(036)521-530223 [place] [address] 05-31-2023 08:00-0400 Heart rate 82 /min Dr. Alexy Douglas Work Phone: 4(397)942-527523 [place] [address] 05-31-2023 08:00-0400 Respiratory rate 20 /min Dr. Alexy Douglas Work Phone: 4(688)043-240665 [address] 05-31-2023 08:00-0400 SaO2% (BldA) [Mass fraction] 95 % Dr. Alexy Douglas Work Phone: [facility] 05-31-2023 08:00-0400 Systolic blood pressure 129 mm[Hg] Dr. Alexy Douglas Work Phone: 5(138)592-255923 [place] [address] 05-24-2023 14:05-0500 Diastolic blood pressure 65 mm[Hg] Dr. Alexy Douglas Work Phone: 7(021)327-024323 [place] [address] 05-24-2023 14:05-0500 Heart rate 91 /min Dr. Alexy Douglas Work Phone: [facility] 05-24-2023 14:05-0500 Respiratory rate 26 /min Dr. Alexy Douglas Work Phone: [facility] 05-24-2023 14:05-0500 Systolic blood pressure 116 mm[Hg] Dr. Alexy Douglas Work Phone: 2(314)282-705723 [place] [address] 05-24-2023 13:42-0500 Body temperature 96.7 [degF] Dr. Alexy Douglsa Work Phone: 7(657)744-514923 [place] [address] 05-13-2023 12:35-0500 Diastolic blood pressure 58 mm[Hg] Dr. Alexy Douglas Work Phone: [facility] 05-13-2023 12:35-0500 Heart rate 82 /min Dr. Alexy Douglas Work Phone: 1(481)661-350223 [place] [address] 05-13-2023 12:35-0500 Respiratory rate 16 /min Dr. Alexy Douglas Work Phone: 3(948)725-869223 [place] [address] 05-13-2023 12:35-0500 Systolic blood pressure 121 mm[Hg] Dr. Alexy Douglas Work Phone: 1(576)823-518965 [address] 05-01-2023 08:36-0500 Diastolic blood pressure 62 mm[Hg] Dr. Alexy Douglas Work Phone: 2(319)782-504094 [place] [address] 05-01-2023 08:36-0500 Heart rate 89 /min Dr. Alexy Douglas Work Phone: 0(219)270-354594 [place] [address] 05-01-2023 08:36-0500 Respiratory rate 20 /min Dr. Alexy Douglas Work Phone: 9(942)271-566394 [place] [address] 05-01-2023 08:36-0500 Systolic blood pressure 108 mm[Hg] Dr. Alexy Douglas Work Phone: 3(634)701-201823 [place] [address] 05-01-2023 08:10-0500 Body temperature 97.3 [degF] Dr. Alexy Douglas Work Phone: 7(284)735-936823 [place] [address] 04-26-2023 09:02-0500 Body height [address] Alexy Douglas Work Phone: 9(608)444-106723 [place] [address] 04-26-2023 09:02-0500 Body mass index (BMI) [Ratio] 38.6 kg/m2 Dr. Alexy Douglas Work Phone: 3(760)644-990923 [place] [address] 04-26-2023 09:02-0500 Body weight 115.[address] Alexy Douglas Work Phone: 5(039)424-876523 [place] [address] 04-26-2023 09:02-0500 Diastolic blood pressure 76 mm[Hg] Dr. Alexy Douglas Work Phone: [facility] 04-26-2023 09:02-0500 Heart rate 91 /min Dr. Alexy Douglas Work Phone: [facility] 04-26-2023 09:02-0500 Respiratory rate 22 /min Dr. Alexy Douglas Work Phone: [facility] 04-26-2023 09:02-0500 SaO2% (BldA) [Mass fraction] 94 % Dr. Alexy Douglas Work Phone: [facility] 04-26-2023 09:02-0500 Systolic blood pressure 128 mm[Hg] Dr. Alexy Douglas Work Phone: [facility] 04-24-2023 08:54-0500 Diastolic blood pressure 65 mm[Hg] Dr. Alexy Duoglas Work Phone: [facility] 04-24-2023 08:54-0500 Heart rate 86 /min Dr. Alexy Douglas Work Phone: [facility] 04-24-2023 08:54-0500 Respiratory rate 18 /min Dr. Alexy Douglas Work Phone: [facility] 04-24-2023 08:54-0500 Systolic blood pressure 134 mm[Hg] Dr. Alexy Douglas Work Phone: [facility] 04-24-2023 08:53-0500 Body temperature 96.2 [degF] Dr. Alexy Douglas Work Phone: [facility] 04-15-2023 12:35-0500 Diastolic blood pressure 64 mm[Hg] Dr. Alexy Douglas Work Phone: [facility] 04-15-2023 12:35-0500 Heart rate 84 /min Dr. Alexy Douglas Work Phone: [facility] 04-15-2023 12:35-0500 Respiratory rate 18 /min Dr. Alexy Douglas Work Phone: [facility] 04-15-2023 12:35-0500 Systolic blood pressure 124 mm[Hg] Dr. Alexy Douglas Work Phone: [facility] 04-15-2023 12:18-0500 Body temperature 97.3 [degF] Dr. Alexy Douglas Work Phone: [facility] 04-15-2023 06:48-0500 Body height [address] Alexy Douglas Work Phone: [facility] 04-15-2023 06:48-0500 Body mass index (BMI) [Ratio] 38.6 kg/m2 Dr. Alexy Douglas Work Phone: [facility] 04-15-2023 06:48-0500 Body temperature 97.1 [degF] Dr. Alexy Douglas Work Phone: [facility] 04-15-2023 06:48-0500 Body weight 115.[address] Alexy Douglas Work Phone: [facility] 04-15-2023 06:48-0500 Diastolic blood pressure 71 mm[Hg] Dr. Alexy Douglas Work Phone: [facility] 04-15-2023 06:48-0500 Heart rate 88 /min Dr. Alexy Douglas Work Phone: 7(516)319-227823 [place] [address] 04-15-2023 06:48-0500 Respiratory rate 20 /min Dr. Alexy Douglas Work Phone: [facility] 04-15-2023 06:48-0500 SaO2% (BldA) [Mass fraction] 95 % Dr. Alexy Douglas Work Phone: [facility] 04-15-2023 06:48-0500 Systolic blood pressure 110 mm[Hg] Dr. Alexy Douglas Work Phone: [facility] 04-05-2023 13:53-0500 Body height [address] Alexy Douglas Work Phone: [facility] 04-05-2023 13:53-0500 Body mass index (BMI) [Ratio] 38.9 kg/m2 Dr. Alexy Douglas Work Phone: [facility] 04-05-2023 13:53-0500 Body weight 116.[address] Alexy Douglas Work Phone: [facility] 04-05-2023 13:53-0500 Diastolic blood pressure 85 mm[Hg] Dr. Alexy Douglas Work Phone: [facility] 04-05-2023 13:53-0500 Heart rate 94 /min Dr. Alexy Douglas Work Phone: 1(421)584-944923 [place] [address] 04-05-2023 13:53-0500 Respiratory rate 22 /min Dr. Alexy Douglas Work Phone: 5(460)461-358023 [place] [address] 04-05-2023 13:53-0500 SaO2% (BldA) [Mass fraction] 97 % Dr. Alexy Douglas Work Phone: 9(993)554-992723 [place] [address] 04-05-2023 13:53-0500 Systolic blood pressure 123 mm[Hg] Dr. Alexy Douglas Work Phone: 4(344)660-731623 [place] [address] 03-26-2023 08:29-0500 Diastolic blood pressure 69 mm[Hg] Dr. Alexy Douglas Work Phone: 9(659)430-223094 [place] [address] 03-26-2023 08:29-0500 Heart rate 10 /min Dr. Alexy Douglas Work Phone: 3(463)621-660623 [place] [address] 03-26-2023 08:29-0500 Respiratory rate 18 /min Dr. Alexy Douglas Work Phone: 9(223)717-268423 [place] [address] 03-26-2023 08:29-0500 Systolic blood pressure 111 mm[Hg] Dr. Alexy Douglas Work Phone: 7(486)382-521723 [place] [address] 03-22-2023 15:27-0500 Body height [address] Alexy Douglas Work Phone: 9(426)596-550623 [place] [address] 03-22-2023 15:27-0500 Body mass index (BMI) [Ratio] 38.6 kg/m2 Dr. Alexy Douglas Work Phone: 2(396)369-303123 [place] [address] 03-22-2023 15:27-0500 Body weight 115.[address] Alexy Douglas Work Phone: [facility] 03-22-2023 15:27-0500 Diastolic blood pressure 68 mm[Hg] Dr. lAexy Douglas Work Phone: [facility] 03-22-2023 15:27-0500 Heart rate 82 /min Dr. Alexy Douglas Work Phone: 3(272)824-473023 [place] [address] 03-22-2023 15:27-0500 Respiratory rate 22 /min Dr. Alexy Douglas Work Phone: [facility] 03-22-2023 15:27-0500 SaO2% (BldA) [Mass fraction] 95 % Dr. Alexy Douglas Work Phone: 4(268)178-944323 [place] [address] 03-22-2023 15:27-0500 Systolic blood pressure 130 mm[Hg] Dr. Alexy Douglas Work Phone: 4(668)605-120865 [address] 03-15-2023 12:58-0500 Diastolic blood pressure 61 mm[Hg] Dr. Alexy Douglas Work Phone: 4(388)455-672165 [address] 03-15-2023 12:58-0500 Heart rate 93 /min Dr. Alexy Douglas Work Phone: 1(671)245-968323 [place] [address] 03-15-2023 12:58-0500 Respiratory rate 18 /min Dr. Alexy Douglas Work Phone: 7(296)158-000023 [place] [address] 03-15-2023 12:58-0500 Systolic blood pressure 124 mm[Hg] Dr. Alexy Douglas Work Phone: 3(823)032-159023 [place] [address] 03-15-2023 12:56-0500 Body temperature 96.6 [degF] Dr. Alexy Douglas Work Phone: 2(768)892-735323 [place] [address] 03-06-2023 08:35-0500 Diastolic blood pressure 61 mm[Hg] Dr. Alexy Douglas Work Phone: 2(613)952-587923 [place] [address] 03-06-2023 08:35-0500 Heart rate 91 /min Dr. Alexy Douglas Work Phone: [facility] 03-06-2023 08:35-0500 Respiratory rate 18 /min Dr. Alexy Douglas Work Phone: [facility] 03-06-2023 08:35-0500 Systolic blood pressure 99 mm[Hg] Dr. Alexy Douglas Work Phone: [facility] 03-06-2023 08:10-0500 Body temperature 97.6 [degF] Dr. Alexy Douglas Work Phone: [facility] 02-16-2023 15:03-0500 Inhaled oxygen flow rate 1 L/min Dr. Alexy Douglas Work Phone: [facility] 02-16-2023 15:03-0500 SaO2% (BldA) [Mass fraction] 92 % Dr. Alexy Douglas Work Phone: [facility] 02-16-2023 10:28-0500 Diastolic blood pressure 59 mm[Hg] Dr. Alexy Douglas Work Phone: [facility] 02-16-2023 10:28-0500 Heart rate 76 /min Dr. Alexy Douglas Work Phone: [facility] 02-16-2023 10:28-0500 Systolic blood pressure 111 mm[Hg] Dr. Alexy Douglas Work Phone: [facility] 02-16-2023 09:09-0500 Body temperature 97.3 [degF] Dr. Alexy Douglas Work Phone: [facility] 02-16-2023 09:09-0500 Respiratory rate 16 /min Dr. Alexy Douglas Work Phone: [facility] 02-14-2023 19:50-0500 Body height [address] Alexy Douglas Work Phone: [facility] 02-14-2023 19:50-0500 Body mass index (BMI) [Ratio] 38.2 kg/m2 Dr. Alexy Douglas Work Phone: [facility] 02-14-2023 19:50-0500 Body weight 114.[address] Alexy Douglas Work Phone: [facility] 02-14-2023 19:38-0500 Body temperature 98.6 [degF] Dr. Alexy Douglas Work Phone: [facility] 02-14-2023 19:38-0500 Diastolic blood pressure 100 mm[Hg] Dr. Alexy Douglas Work Phone: [facility] 02-14-2023 19:38-0500 Heart rate 120 /min Dr. Alexy Douglas Work Phone: [facility] 02-14-2023 19:38-0500 Respiratory rate 36 /min Dr. Alexy Douglas Work Phone: 2(347)227-261723 [place] [address] 02-14-2023 19:38-0500 SaO2% (BldA) [Mass fraction] 96 % Dr. Alexy Douglas Work Phone: 4(927)894-487023 [place] [address] 02-14-2023 19:38-0500 Systolic blood pressure 152 mm[Hg] Dr. Alexy Douglas Work Phone: 6(855)561-915023 [place] [address] 02-14-2023 16:50-0500 Inhaled oxygen flow rate 1 L/min Dr. Alexy Douglas Work Phone: 5(127)789-940923 [place] [address] 02-14-2023 16:42-0500 Body mass index (BMI) [Ratio] 39 kg/m2 Dr. Alexy Douglas Work Phone: 9(261)399-512723 [place] [address] 02-14-2023 16:42-0500 Body weight 116.[address] Alexy Douglas Work Phone: [facility] 02-14-2023 15:52-0500 Body height [address] Alexy Douglas Work Phone: 0(792)619-521023 [place] [address] 02-12-2023 15:00-0500 Diastolic blood pressure 58 mm[Hg] Dr. Alexy Douglas Work Phone: [facility] 02-12-2023 15:00-0500 Heart rate 63 /min Dr. Alexy Douglas Work Phone: [facility] 02-12-2023 15:00-0500 Respiratory rate 24 /min Dr. Alexy Douglas Work Phone: [facility] 02-12-2023 15:00-0500 Systolic blood pressure 109 mm[Hg] Dr. Alexy Douglas Work Phone: [facility] 01-25-2023 11:36-0500 Body temperature 97.1 [degF] Dr. Alexy Douglas Work Phone: [facility] 01-25-2023 11:36-0500 Diastolic blood pressure 78 mm[Hg] Dr. Alexy Douglas Work Phone: 8(333)835-833423 [place] [address] 01-25-2023 11:36-0500 Heart rate 95 /min Dr. Alexy Douglas Work Phone: 6(719)839-924623 [place] [address] 01-25-2023 11:36-0500 Respiratory rate 18 /min Dr. Alexy Douglas Work Phone: 3(523)313-147923 [place] [address] 01-25-2023 11:36-0500 Systolic blood pressure 148 mm[Hg] Dr. Alexy Douglas Work Phone: 6(439)109-687323 [place] [address] 12-26-2022 09:59-0400 Body height 172.[address] Alexy Douglas Work Phone: 5(575)552-011223 [place] [address] 12-26-2022 09:59-0400 Body weight 116.[address] Alexy Douglas Work Phone: 2(854)654-639023 [place] [address] 11-30-2022 15:17-0400 Body height 172.[address] Alexy Douglas Work Phone: 9(543)256-634223 [place] [address] 11-30-2022 15:17-0400 Body mass index (BMI) [Ratio] 38.2 kg/m2 Dr. Alexy Douglas Work Phone: 1(907)907-921123 [place] [address] 11-30-2022 15:17-0400 Body weight 114.[address] Alexy Douglas Work Phone: [facility] 11-30-2022 15:17-0400 Diastolic blood pressure 82 mm[Hg] Dr. Alexy Douglas Work Phone: 7(275)219-511323 [place] [address] 11-30-2022 15:17-0400 Heart rate 80 /min Dr. Alexy Douglas Work Phone: 0(426)648-652723 [place] [address] 11-30-2022 15:17-0400 Respiratory rate 16 /min Dr. Alexy Douglas Work Phone: 4(318)298-324623 [place] [address] 11-30-2022 15:17-0400 Systolic blood pressure 127 mm[Hg] Dr. Alexy Douglas Work Phone: 3(510)620-747423 [place] [address] 10-31-2022 10:40-0400 Body height 172.[address] Alexy Douglas Work Phone: 9(863)019-306923 [place] [address] 08-28-2022 15:00-0400 Body height 172.[address] Alexy Douglas Work Phone: 2(943)790-821794 [place] [address] 08-28-2022 14:58-0400 Body mass index (BMI) [Ratio] 38.7 kg/m2 Dr. Alexy Douglas Work Phone: 7(155)694-714794 [place] [address] 08-28-2022 14:58-0400 Body weight 115.[address] Alexy Douglas Work Phone: 1(385)841-994423 [place] [address] 08-28-2022 14:58-0400 Diastolic blood pressure 78 mm[Hg] Dr. Alexy Douglas Work Phone: 4(970)588-194094 [place] [address] 08-28-2022 14:58-0400 Heart rate 78 /min Dr. Alexy Douglas Work Phone: 2(983)[phone] [place] [address] 08-28-2022 14:58-0400 Respiratory rate 18 /min Dr. Alexy Douglas Work Phone: 5(015)259-113723 [place] [address] 08-28-2022 14:58-0400 SaO2% (BldA) [Mass fraction] 95 % Dr. Alexy Douglas Work Phone: 3(703)389-781723 [place] [address] 08-28-2022 14:58-0400 Systolic blood pressure 131 mm[Hg] Dr. Alexy Douglas Work Phone: 0(447)629-640294 [place] [address] 04-04-2022 08:55-0500 Body height 172.[address] Alexy Douglas Work Phone: [facility] 04-04-2022 08:55-0500 Body mass index (BMI) [Ratio] 39.5 kg/m2 Dr. Alexy Douglas Work Phone: [facility] 04-04-2022 08:55-0500 Body weight 117.[address] Alexy Douglas Work Phone: [facility] 04-04-2022 08:55-0500 Diastolic blood pressure 78 mm[Hg] Dr. Alexy Douglas Work Phone: [facility] 04-04-2022 08:55-0500 Heart rate 58 /min Dr. Alexy oDuglas Work Phone: [facility] 04-04-2022 08:55-0500 Respiratory rate 22 /min Dr. Alexy Douglas Work Phone: 9(078)599-187723 [place] [address] 04-04-2022 08:55-0500 SaO2% (BldA) [Mass fraction] 93 % Dr. Alexy Douglas Work Phone: [facility] 04-04-2022 08:55-0500 Systolic blood pressure 122 mm[Hg] Dr. Alexy Douglas Work Phone: [facility] 01-29-2022 14:53-0500 Body height 172.[address] Alexy Douglas Work Phone: [facility] 01-29-2022 14:53-0500 Body mass index (BMI) [Ratio] 39.5 kg/m2 Dr. Alexy Douglas Work Phone: [facility] 01-29-2022 14:53-0500 Body weight 117.[address] Alexy Douglas Work Phone: [facility] 01-29-2022 14:53-0500 Diastolic blood pressure 82 mm[Hg] Dr. Alexy Douglas Work Phone: [facility] 01-29-2022 14:53-0500 Heart rate 94 /min Dr. Alexy Dogulas Work Phone: [facility] 01-29-2022 14:53-0500 Respiratory rate 18 /min Dr. Alexy Douglas Work Phone: [facility] 01-29-2022 14:53-0500 SaO2% (BldA) [Mass fraction] 95 % Dr. Alexy Douglas Work Phone: [facility] 01-29-2022 14:53-0500 Systolic blood pressure 129 mm[Hg] Dr. Alexy Douglas Work Phone: 5(159)899-201023 [place] [address] 12-20-2021 14:16-0400 Body height 172.[address] Alexy Douglas Work Phone: 4(279)320-241823 [place] [address] Work Phone: 12-20-2021 14:16-0400 Body mass index (BMI) [Ratio] 41.1 kg/m2 Dr. Alexy Douglas Work Phone: 6(605)234-937565 [address] 12-20-2021 14:16-0400 Body temperature 98.2 [degF] Dr. Alexy Douglas Work Phone: 0(107)765-087823 [place] [address] 12-20-2021 14:16-0400 Body weight 122.[address] Alexy Douglas Work Phone: 6(054)007-730694 [place] [address] 12-20-2021 14:16-0400 Diastolic blood pressure 82 mm[Hg] Dr. Alexy Douglas Work Phone: 5(735)496-954023 [place] [address] 12-20-2021 14:16-0400 Heart rate 94 /min Dr. Alexy Douglas Work Phone: 2(473)742-414923 [place] [address] 12-20-2021 14:16-0400 Respiratory rate 18 /min Dr. Alexy Douglas Work Phone: 5(425)314-799123 [place] [address] 12-20-2021 14:16-0400 SaO2% (BldA) [Mass fraction] 94 % Dr. Alexy Douglas Work Phone: [facility] 12-20-2021 14:16-0400 Systolic blood pressure 143 mm[Hg] Dr. Alexy Douglas Work Phone: [facility] 10-30-2021 14:52-0400 Body height 172.[address] Alexy Douglas Work Phone: [facility] Work Phone: 10-30-2021 14:52-0400 Body mass index (BMI) [Ratio] 38.9 kg/m2 Dr. Alexy Douglas Work Phone: [facility] Work Phone: 10-30-2021 14:52-0400 Body weight 116.[address] Alexy Douglas Work Phone: [facility] Work Phone: 10-30-2021 14:52-0400 Diastolic blood pressure 67 mm[Hg] Dr. Alexy Douglas Work Phone: [facility] Work Phone: 10-30-2021 14:52-0400 Heart rate 54 /min Dr. Alexy Douglas Work Phone: [facility] Work Phone: 10-30-2021 14:52-0400 Respiratory rate 20 /min Dr. Alexy Douglas Work Phone: [facility] Work Phone: 10-30-2021 14:52-0400 SaO2% (BldA) [Mass fraction] 94 % Dr. Alexy Douglas Work Phone: [facility] Work Phone: 10-30-2021 14:52-0400 Systolic blood pressure 108 mm[Hg] Dr. Alexy Douglsa Work Phone: [facility] Work Phone: 10-25-2021 12:38-0400 Body temperature 98.1 [degF] Dr. Alexy Douglas Work Phone: [facility] Work Phone: 10-25-2021 12:38-0400 Diastolic blood pressure 68 mm[Hg] Dr. Alexy Douglas Work Phone: [facility] Work Phone: 10-25-2021 12:38-0400 Heart rate 70 /min Dr. Alexy Douglas Work Phone: [facility] Work Phone: 10-25-2021 12:38-0400 Inhaled oxygen flow rate 1 L/min Dr. Alexy Douglas Work Phone: [facility] Work Phone: 10-25-2021 12:38-0400 Respiratory rate 18 /min Dr. Alexy Douglas Work Phone: [facility] Work Phone: 10-25-2021 12:38-0400 SaO2% (BldA) [Mass fraction] 96 % Dr. Alexy Douglas Work Phone: [facility] Work Phone: 10-25-2021 12:38-0400 Systolic blood pressure 137 mm[Hg] Dr. Alexy Douglas Work Phone: [facility] Work Phone: 10-25-2021 10:03-0400 Body weight 118.[address] Alexy Douglas Work Phone: [facility] Work Phone: 10-23-2021 23:07-0400 Inhaled oxygen concentration 21 % Dr. Alexy Douglas Work Phone: [facility] Work Phone: 10-23-2021 08:39-0400 Body height 172.[address] Alexy Douglas Work Phone: [facility] Work Phone: 10-15-2021 16:13-0400 Body mass index (BMI) [Ratio] 39.9 kg/m2 Dr. Alexy Douglas Work Phone: [facility] Work Phone: 10-15-2021 14:30-0400 Inhaled oxygen flow rate 5 L/min Dr. Alexy Douglas Work Phone: [facility] Work Phone: 10-15-2021 14:30-0400 SaO2% (BldA) [Mass fraction] 93 % Dr. Alexy Douglas Work Phone: [facility] Work Phone: 10-15-2021 14:01-0400 Body temperature 97.7 [degF] Dr. Alexy Douglas Work Phone: [facility] Work Phone: 10-15-2021 14:01-0400 Diastolic blood pressure 80 mm[Hg] Dr. Alexy Douglas Work Phone: [facility] Work Phone: 10-15-2021 14:01-0400 Heart rate 84 /min Dr. Alexy Douglas Work Phone: [facility] Work Phone: 10-15-2021 14:01-0400 Respiratory rate 20 /min Dr. Alexy Douglas Work Phone: [facility] Work Phone: 10-15-2021 14:01-0400 Systolic blood pressure 162 mm[Hg] Dr. Alexy Douglas Work Phone: [facility] Work Phone: 10-14-2021 19:10-0400 Inhaled oxygen concentration 91 % Dr. Alexy Douglas Work Phone: [facility] Work Phone: 10-13-2021 14:30-0400 Body weight 113.[address] Alexy Douglas Work Phone: [facility] Work Phone: 10-09-2021 15:55-0400 Body mass index (BMI) [Ratio] 38.1 kg/m2 Dr. Alexy Douglas Work Phone: [facility] Work Phone: 10-09-2021 14:59-0400 Body temperature 98.6 [degF] Dr. Alexy Douglas Work Phone: [facility] Work Phone: 10-09-2021 14:59-0400 Diastolic blood pressure 87 mm[Hg] Dr. Alexy Douglas Work Phone: [facility] Work Phone: 10-09-2021 14:59-0400 Heart rate 111 /min Dr. Alexy Douglas Work Phone: [facility] Work Phone: 10-09-2021 14:59-0400 Inhaled oxygen flow rate 4 L/min Dr. Alexy Douglas Work Phone: [facility] Work Phone: 10-09-2021 14:59-0400 Respiratory rate 33 /min Dr. Alexy Douglas Work Phone: [facility] Work Phone: 10-09-2021 14:59-0400 SaO2% (BldA) [Mass fraction] 95 % Dr. Alexy Douglas Work Phone: [facility] Work Phone: 10-09-2021 14:59-0400 Systolic blood pressure 120 mm[Hg] Dr. Alexy Douglas Work Phone: [facility] Work Phone: 10-09-2021 11:42-0400 Body height 172.[address] Alexy Douglas Work Phone: [facility] Work Phone: 10-09-2021 11:42-0400 Body mass index (BMI) [Ratio] 39.6 kg/m2 Dr. Alexy Douglas Work Phone: [facility] Work Phone: 10-09-2021 11:42-0400 Body weight 118.[address] Alexy Douglas Work Phone: [facility] Work Phone: 09-06-2021 08:22-0400 Body height 170.[address] Alexy Douglas Work Phone: [facility] Work Phone: 09-06-2021 08:22-0400 Body mass index (BMI) [Ratio] 41 kg/m2 Dr. Alexy Douglas Work Phone: [facility] Work Phone: 09-06-2021 08:22-0400 Body weight 118.[address] Alexy Douglas Work Phone: [facility] Work Phone: 09-06-2021 08:22-0400 Diastolic blood pressure 84 mm[Hg] Dr. Alexy Douglas Work Phone: [facility] Work Phone: 09-06-2021 08:22-0400 Heart rate 81 /min Dr. Alexy Douglas Work Phone: [facility] Work Phone: 09-06-2021 08:22-0400 Respiratory rate 24 /min Dr. Alexy Douglas Work Phone: [facility] Work Phone: 09-06-2021 08:22-0400 SaO2% (BldA) [Mass fraction] 93 % Dr. Alexy Douglas Work Phone: [facility] Work Phone: 09-06-2021 08:22-0400 Systolic blood pressure 147 mm[Hg] Dr. Alexy Douglas Work Phone: [facility] Work Phone: 06-14-2021 13:28-0400 Body mass index (BMI) [Ratio] 41 kg/m2 Dr. Alexy Douglas Work Phone: [facility] Work Phone: 06-14-2021 13:28-0400 Body weight 118.[address] Alexy Douglas Work Phone: [facility] Work Phone: 06-14-2021 13:28-0400 Diastolic blood pressure 84 mm[Hg] Dr. Alexy Douglas Work Phone: [facility] Work Phone: 06-14-2021 13:28-0400 Heart rate 77 /min Dr. Alexy Douglas Work Phone: [facility] Work Phone: 06-14-2021 13:28-0400 Respiratory rate 18 /min Dr. Alexy Douglas Work Phone: [facility] Work Phone: 06-14-2021 13:28-0400 SaO2% (BldA) [Mass fraction] 94 % Dr. Alexy Douglas Work Phone: [facility] Work Phone: 06-14-2021 13:28-0400 Systolic blood pressure 139 mm[Hg] Dr. Alexy Douglas Work Phone: [facility] Work Phone: 06-14-2021 13:28-0400 Body height 170.[address] Alexy Douglas Work Phone: [facility] Work Phone: 06-14-2021 13:28-0400 Body mass index (BMI) [Ratio] 41 kg/m2 Dr. Alexy Douglas Work Phone: [facility] Work Phone: 06-14-2021 13:28-0400 Body weight 118.[address] Alexy Douglas Work Phone: [facility] Work Phone: 06-14-2021 13:28-0400 Diastolic blood pressure 84 mm[Hg] Dr. Alexy Douglas Work Phone: [facility] Work Phone: 06-14-2021 13:28-0400 Heart rate 77 /min Dr. Alexy Douglas Work Phone: [facility] Work Phone: 06-14-2021 13:28-0400 Respiratory rate 18 /min Dr. Alexy Douglas Work Phone: [facility] Work Phone: 06-14-2021 13:28-0400 SaO2% (BldA) [Mass fraction] 94 % Dr. Alexy Douglas Work Phone: [facility] Work Phone: 06-14-2021 13:28-0400 Systolic blood pressure 139 mm[Hg] Dr. Alexy Douglas Work Phone: [facility] Work Phone: 05-22-2021 09:31-0500 Body temperature 97.8 [degF] Dr. Alexy Douglas Work Phone: [facility] Work Phone: 05-22-2021 09:31-0500 Diastolic blood pressure 78 mm[Hg] Dr. Alexy Douglas Work Phone: [facility] Work Phone: 05-22-2021 09:31-0500 Heart rate 96 /min Dr. Alexy Douglas Work Phone: [facility] Work Phone: 05-22-2021 09:31-0500 Respiratory rate 18 /min Dr. Alexy Douglas Work Phone: [facility] Work Phone: 05-22-2021 09:31-0500 SaO2% (BldA) [Mass fraction] 97 % Dr. Alexy Douglas Work Phone: [facility] Work Phone: 05-22-2021 09:31-0500 Systolic blood pressure 145 mm[Hg] Dr. Alexy Douglas Work Phone: [facility] Work Phone: 05-22-2021 08:31-0500 Body temperature 97.8 [degF] Dr. Alexy Douglas Work Phone: [facility] Work Phone: 05-22-2021 08:31-0500 Diastolic blood pressure 78 mm[Hg] Dr. Alexy Douglas Work Phone: [facility] Work Phone: 05-22-2021 08:31-0500 Heart rate 96 /min Dr. Alexy Douglas Work Phone: [facility] Work Phone: 05-22-2021 08:31-0500 Respiratory rate 18 /min Dr. Alexy Douglas Work Phone: [facility] Work Phone: 05-22-2021 08:31-0500 SaO2% (BldA) [Mass fraction] 97 % Dr. Alexy Douglas Work Phone: [facility] Work Phone: 05-22-2021 08:31-0500 Systolic blood pressure 145 mm[Hg] Dr. Alexy Douglas Work Phone: [facility] Work Phone: 01-16-2017 06:47-0400 BMI (Body Mass Index) 40.74 kg/m2 Rina Patel [facility] Work Phone: 01-16-2017 06:47-0400 Body Temperature 98.8 [degF] Rina [facility] Work Phone: 01-16-2017 06:47-0400 BP Diastolic 70 mm[Hg] Rina [facility] Work Phone: 01-16-2017 06:47-0400 BP Systolic 124 mm[Hg] iRna [facility] Work Phone: 01-16-2017 06:47-0400 Height 172.09 cm Rina Pat[facility] [employer]. Phone: 01-16-2017 06:47-0400 Pulse (Heart Rate) 57 /min [facility] Work Phone: 01-16-2017 06:47-0400 Respiratory Rate 18 /min Rina Patel [facility] Work Phone: 01-16-2017 06:47-0400 Weight 120.66 kg [...] Phone: 12-17-2016 08:39-0400 Height 172.09 cm [facility] Work Phone: 12-17-2016 08:39-0400 Pulse (Heart Rate) 47 /min [facility] Work Phone: 12-17-2016 08:39-0400 Respiratory Rate 20 /min [facility] Work Phone: 12-17-2016 08:39-0400 Weight 122.93 kg [facility] Work Phone: 12-07-2016 11:13-0400 BMI (Body Mass Index) 42.73 kg/m2 Pat [facility] Work Phone: 12-07-2016 11:13-0400 Body Temperature 98.8 [degF] [facility] Work Phone: 12-07-2016 11:13-0400 BP Diastolic 69 mm[Hg] [facility] Work Phone: 12-07-2016 11:13-0400 BP Systolic 173 mm[Hg] Pat [facility] Work Phone: 12-07-2016 11:13-0400 Height 172.09 cm Pat [facility] Work Phone: 12-07-2016 11:13-0400 Pulse (Heart Rate) 51 /min Pat [facility] Work Phone: 12-07-2016 11:13-0400 Respiratory Rate 18 /min Pat [facility] Work Phone: 12-07-2016 11:13-0400 Weight 126.55 kg [facility] Work Phone: 10-18-2016 15:41-0400 BMI (Body Mass Index) 41.32 kg/m2 [facility] Work Phone: 10-18-2016 15:41-0400 BP Diastolic 60 mm[Hg] [facility] Work Phone: 10-18-2016 15:41-0400 BP Systolic 110 mm[Hg] [facility] Work Phone: 10-18-2016 15:41-0400 Height 172.09 cm [facility]ma [facility] Work Phone: 10-18-2016 15:41-0400 Pulse (Heart Rate) 64 /min [facility] Work Phone: 10-18-2016 15:41-0400 Respiratory Rate 20 /min [facility] Work Phone: 10-18-2016 15:41-0400 Weight 122.38 kg [facility] Work Phone: 04-06-2016 13:35-0500 BMI (Body Mass Index) 41.41 kg/m2 [facility] Work Phone: 04-06-2016 13:35-0500 BP Diastolic 60 mm[Hg] [facility] Work Phone: 04-06-2016 13:35-0500 BP Systolic 180 mm[Hg] [facility] Work Phone: 04-06-2016 13:35-0500 BSA (Body Surface Area) 2.32 m2 [facility] Work Phone: 04-06-2016 13:35-0500 Pulse (Heart Rate) 72 /min [facility] Work Phone: 04-06-2016 13:35-0500 Respiratory Rate 20 /min [facility] Work Phone: 04-06-2016 13:35-0500 Weight 122.65 kg [facility] Work Phone: 10-04-2015 14:37-0400 Heart rate 57 /min Mariam Amaral RN [facility] Work Phone: 02-09-2015 13:55-0500 Body Temperature 96.4 [degF] [facility] Work Phone: 08-21-2013 14:20-0400 Height 172.09 cm [facility] Work Phone: 07-03-2013 11:14-0400 Heart rate 466 ms Mariam Amaral RN [facility] Work Phone: Encounters Encounter Date Encounter Type Care Provider Facility Start: 08-11-2024 End: 08-11-[address] Alexy Douglas MD Work Phone: [facility] Work Phone: Start: 08-11-2024 End: 08-11-2024 Dr. Viry Reveles MD -Laboratory Specim en Work Phone: Start: 08-11-2024 End: 08-11-2024 ambulatory Viry Reveles Facility:[facility] Start: 07-08-2024 End: 07-08-2024 Dr. Aleyx Douglas MD -Cardiovascular Services Work Phone: Start: 07-08-2024 End: 07-08-2024 [facility] Facility[facility] Start: 07-06-2024 End: 07-14-2024 Dr. Alexy Douglas MD -Transitional Care Unit Start: 07-06-2024 End: 07-14-2024 Evaluation and management of inpatient [facility] Facility:[facility] Start: 07-06-2024 Dr. Jabari lance DO -[facility] Work Phone: Start: 07-05-2024 Dr. Oksana Coon MD - [facility] Work Phone: Start: 07-05-2024 Dr. Lukas Nix MD [facility] Start: 07-04-2024 Dr. Oksana Coon MD - [facility] Work Phone: Start: 07-04-2024 Dr. Lukas Nix MD [facility] Start: 07-03-2024 Dr. Oksana Coon MD - [facility] Work Phone: Start: 07-03-2024 Dr. Lukas Nix MD [facility] Start: 07-02-2024 Dr. Oksana Coon MD - [facility] Work Phone: Start: 07-02-2024 Ana María Peralta [facility] Start: 07-01-2024 Dr. Oksana Coon MD - [facility] Work Phone: Start: 07-01-2024 Dr. Nato Presley MD [facility] Start: 07-01-2024 ambulatory [facility] Facility[facility] Start: 07-01-2024 Dr. Vidal Almonte MD -[facility] Start: 07-01-2024 Dr. Farrah Malone MD - [facility] Start: 07-01-2024 ambulatory Alexy Chi Misael Facility:[facility] Start: 07-01-2024 Dr. Roosevelt Tesfaye MD -[facility] Start: 06-30-2024 End: 07-06-2024 Evaluation and management of inpatient Dr. Alexy Douglas MD Work Phone: [facility] Work Phone: Start: 06-30-2024 ambulatory Jabari Wolfe y:[facility] Start: 06-30-2024 End: 07-06-2024 Dr. Liz Griffin MD -Intensive Care Un it Work Phone: Start: 06-29-2024 End: 06-29-2024 Dr. Roosevelt Tesfaye MD -Supervisor Microwave/Special Procedures Work Phone: Start: 06-29-2024 End: 06-29-[address] Alexy Douglas MD Work Phone: [facility] Work Phone: Start: 06-26-2024 End: 06-26-2024 Lovely Linda NP-Murali -[facility] Work Phone: Start: 06-26-2024 End: 06-26-2024 ambulatory Alexy Chi Misael Facility:[facility] Start: 05-14-2024 End: 05-14-2024 Chad HDZ -[facility] Work Phone: Start: 05-14-2024 End: 05-14-2024 ambulatory Alexy Chi [facility] Facility:[facility] Start: 05-14-2024 End: 05-14-2024 Chad HDZ -Laboratory Work Phone: Start: 05-14-2024 End: 05-14-2024 ambulatory Alexy Chi [facility] Facility:[facility] Start: 04-28-2024 Dr. Ephraim Oneil MD -[facility] Work Phone: Start: 04-27-2024 Dr. Ephraim Oneil MD -[facility] Work Phone: Start: 04-26-2024 End: 04-26-2024 ambulatory Farrah Malone Facility:[facility] Start: 04-26-2024 End: 04-26-2024 Dr. Martin Davies MD -[facility] Work Phone: Start: 04-25-2024 ambulatory Liz Griffin Facility :[facility] Start: 04-25-2024 End: 04-28-2024 Evaluation and management of inpatient Liz Griffin Facility:[facility] Start: 04-25-2024 End: 04-28-2024 Dr. Ephraim Oneil MD -Progressive Care Unit Work Phone: Start: 04-24-2024 End: 04-24-2024 Bessy Galan REGULATORY AFFAIRS ASSISTANT-C -Ultrasound, [facility] Work Phone: Start: 04-24-2024 End: 04-24-2024 ambulatory Bessy Galan NP Facility:[facility] Start: 04-22-2024 End: 04-22-2024 Dr. Alexy Douglas MD -Laboratory, Phy Office 3rd Flr Start: 04-22-2024 End: 04-22-2024 ambulatory lAexy Douglas Facility:[facility] Start: 04-20-2024 [facility] Start: 04-20-2024 End: 04-20-2024 Bessy Galan REGULATORY AFFAIRS ASSISTANT-C -Ultrasound, [facility] Work Phone: Start: 04-20-2024 End: 04-20-2024 ambulatory Bessy Galan NP Facility:[facility] Start: 04-13-2024 End: 04-13-2024 Dr. Alexy Douglas MD -Laboratory, Phy Office 3rd Flr Start: 04-13-2024 End: 04-13-2024 ambulatory Aelxy Douglas Facility:[facility] Start: 04-07-2024 Dr. Raul Busby MD -[facility] Work Phone: Start: 04-06-2024 Dr. Raul Busby MD -[facility] Work Phone: Start: 04-05-2024 ambulatory Alexy Chi Misael [facility] Start: 04-05-2024 End: 04-07-2024 Evaluation and management of inpatient Alexy Chi Misael Facility:[facility] Start: 04-05-2024 End: 04-07-2024 Dr. Raul Busby MD -Progressive Care U nit Work Phone: Start: 04-01-2024 End: 04-01-2024 ambulatory Alexy Chi Misael [facility] Start: 04-01-2024 End: 04-01-2024 Bessy Galan REGULATORY AFFAIRS ASSISTANT-C -[facility] Work Phone: Start: 04-01-2024 End: 04-01-2024 ambulatory Alexy Chi Misael Facility:[facility] Start: 03-31-2024 End: 03-31-2024 Dr. Alexy Douglas MD -Laboratory, Phy Office 3rd Flr Start: 03-31-2024 End: 03-31-2024 ambulatory Alexy Chi Misael Facility:[facility] Start: 03-18-2024 Dr. Amaury Pena DO [facility] Work Phone: Start: 03-17-2024 Dr. Amaury Pena [facility] Work Phone: Start: 03-16-2024 ambulatory Vidal Jopperi [facility] Start: 03-16-2024 ambulatory Vidal Jopperi [facility] Start: 03-16-2024 End: 03-18-2024 Evaluation and management of inpatient Vidal Jopperi Facility:[facility] Start: 03-16-2024 End: 03-18-2024 Dr. Amaury Pena DO -Progressive Care Unit Work Phone: Start: 01-29-2024 End: 01-29-2024 ambulatory Alexy Chi Misael [facility] Start: 01-27-2024 End: 01-27-2024 ambulatory Alexy Chi Misael Facility:[facility] Start: 01-25-2024 ambulatory Roosevelt Tesfaye [facility] Start: 01-25-2024 ambulatory Martin Davies Facility:[facility] Start: 01-15-2024 ambulatory Logan John Migue ity:[facility] Start: 01-15-2024 End: 01-20-2024 Evaluation and management of inpatient Martin Davies Facility:[facility] Start: 01-06-2024 End: 01-06-2024 ambulatory Alexy Chi Misael Facility:[facility] Start: 12-31-2023 End: 12-31-2023 ambulatory Alexy Chi Misael Facility:[facility] Start: 12-27-2023 ambulatory Alexy Chi Misael [facility] Start: 12-26-2023 ambulatory Alexy Chi Misael [facility] Start: 12-26-2023 End: 12-29-2023 Evaluation and management of inpatient Christina Menard Facility:[facility] Start: 12-24-2023 ambulatory Javier Bedoya Facility :[facility] Start: 12-23-2023 End: 12-23-2023 ambulatory Bessy Galan REGULATORY AFFAIRS ASSISTANT Facility:[facility] Start: 12-20-2023 End: 12-20-2023 ambulatory Bessy Galan REGULATORY AFFAIRS ASSISTANT Facility:[facility] Start: 12-10-2023 End: 12-10-2023 ambulatory Alexy Chi Misael Facility:[facility] Start: 12-02-[address] Lee [facility] Start: 12-02-2023 End: 12-05-2023 Evaluation and management of inpatient Amaury milind Facility:[facility] Start: 11-27-2023 End: 11-28-2023 ambulatory Alexy Chi Misael Facility:[facility] Start: 11-27-2023 End: 11-27-2023 ambulatory Alexy Chi Misael Facility:[facility] Start: 11-26-2023 End: 11-26-2023 ambulatory Alexy Chi Misael Facility:[facility] Start: 10-21-2023 End: 10-22-2023 ambulatory Alexy Chi Misael Facility:[facility] Start: 10-21-2023 End: 10-21-2023 ambulatory Mitali Hagen Facility:[facility] Start: 10-14-2023 End: 10-14-2023 ambulatory Alexy Chi Misael Facility:[facility] Start: 07-10-2023 End: 07-19-2023 Evaluation and management of inpatient LITA GARDINER MD Facility:[facility] Start: 07-10-2023 End: 07-19-2023 Evaluation and management of inpatient LIAT GARDINER MD [facility] Start: 07-05-2023 End: 07-05-[address] Alexy Douglas Work Phone: [facility] Work Phone: Start: 07-05-2023 End: 07-05-[address] Alexy Douglas Work Phone: [facility], [facility] Work Phone: Start: 07-03-2023 End: 07-04-2023 ambulatory LIAT GARDINER MD Facility:A Start: 07-03-2023 End: 07-03-2023 Admission to [facility] LIAT GARDINER MD [facility] Start: 06-27-2023 Non-patient / Non-visit Dr. Lew Douglas Work Phone: [facility] Start: 06-27-2023 End: 06-27-[address] Alexy Douglas Work Phone: [facility] Work Phone: Start: 06-27-2023 End: 06-27-[address] Alexy Douglas Work Phone: [facility], [facility] Work Phone: Start: 06-25-2023 End: 06-25-[address] Alexy Douglas Work Phone: [facility] Work Phone: Start: 06-25-2023 End: 06-25-[address] Alexy Douglas Work Phone: [facility],Gilles garcia Work Phone: Start: 06-24-2023 End: 06-24-[address] Alexy Douglas Work Phone: [facility] Work Phone: Start: 06-24-2023 End: 06-24-[address] Alexy Douglas Work Phone: [facility]-Laboratory Work Phone: Start: 06-19-2023 Non-patient / Non-visit Dr. Lew Douglas Work Phone: [facility] Start: 06-17-2023 Non-patient / Non-visit Dr. Lew Douglas Work Phone: [facility] Start: 06-17-2023 End: 06-17-[address] Alexy Douglas Work Phone: [facility] Work Phone: Start: 06-17-2023 End: 06-17-[address] Alexy Douglas Work Phone: [facility]-Ultrasound, [facility] Work Phone: Start: 06-10-2023 End: 06-10-[address] Alexy Douglas Work Phone: [facility] Work Phone: Start: 06-10-2023 End: 06-10-2023 Dr. Alexy Douglas Work Phone: [facility] Work Phone: Start: 06-06-2023 Non-patient / Non-visit Dr. Lew Douglas Work Phone: [facility] Start: 06-06-2023 Dr. Alexy Douglas Work Phone: [facility] Start: 06-06-2023 End: 06-06-[address] Alexy Douglas Work Phone: [facility] Work Phone: Start: 06-06-2023 End: 06-06-[address] Alexy Douglas Work Phone: [facility]-Ultrasound, [facility] Work Phone: Start: 06-06-2023 End: 06-06-2023 Dr. Alexy Douglas Work Phone: [facility]-Ultrasound, [facility] Work Phone: Start: 05-31-2023 End: 05-31-[address] Alexy Douglas Work Phone: [facility] Medicine [facility] Work Phone: Start: 05-31-2023 End: 05-31-2023 Dr. Alexy Douglas Work Phone: [facility] Medicine [facility] Work Phone: Start: 05-27-2023 Non-patient / Non-visit Dr. Lew Douglas Work Phone: [facility] Start: 05-27-2023 End: 05-27-[address] Alexy Douglas Work Phone: [facility] Work Phone: Start: 05-27-2023 End: 05-27-[address] Alexy Douglas Work Phone: [facility]-Cardiovascula r Services Work Phone: Start: 05-27-2023 End: 05-27-2023 Dr. Alexy Douglas Work Phone: [facility] Start: 05-24-2023 Non-patient / Non-visit Dr. Lew Douglas Work Phone: [facility] Start: 05-24-2023 Dr. Alexy Douglas Work Phone: [facility] Start: 05-24-2023 End: 05-24-[address] Alexy Douglas Work Phone: [facility] Work Phone: Start: 05-24-2023 End: 05-24-[address] Alexy Douglas Work Phone: [facility]-Ultrasound, [facility] Work Phone: Start: 05-24-2023 End: 05-24-2023 Dr. Alexy Douglas Work Phone: [facility]-Ultrasound, [facility] Work Phone: Start: 05-13-2023 Non-patient / Non-visit Dr. Lew Douglas Work Phone: [facility] Start: 05-13-2023 End: 05-13-[address] Alexy Douglas Work Phone: [facility] Work Phone: Start: 05-13-2023 End: 05-13-[address] Alexy Douglas Work Phone: [facility]-Ultrasound, [facility] Work Phone: Start: 05-13-2023 End: 05-13-2023 Dr. Alexy Douglas Work Phone: [facility] Start: 05-03-2023 End: 05-03-[address] Alexy Douglas Work Phone: [facility] Work Phone: Start: 05-03-2023 End: 05-03-[address] Alexy Douglas Work Phone: [facility]-Cat Scan, [facility] Work Phone: Start: 05-03-2023 End: 05-03-2023 Dr. Alex[facility] Work Phone: Start: 05-01-2023 Non-patient / Non-visit Dr. Lew Douglas Work Phone: [facility] Start: 05-01-2023 End: 05-01-[address] Alexy Douglas Work Phone: [facility] Work Phone: Start: 05-01-2023 End: 05-01-[address] Alexy Douglas Work Phone: [facility]-Ultrasound, [facility] Work Phone: Start: 05-01-2023 End: 05-01-2023 Dr. Alexy Douglas Work Phone: [facility] Start: 04-30-2023 End: 04-30-[address] Alexy Douglas Work Phone: [facility] Work Phone: Start: 04-30-2023 End: 04-30-[address] Alexy Douglas Work Phone: [facility] Work Phone: Start: 04-30-2023 End: 04-30-2023 Dr. Alexy Douglas Work Phone: [facility] Work Phone: Start: 04-26-2023 End: 04-26-[address] Alexy Douglas Work Phone: [facility] Work Phone: Start: 04-26-2023 End: 04-26-2023 Dr. Alexy Douglas Work Phone: [facility] Work Phone: Start: 04-24-2023 End: 04-24-[address] Alexy Douglas Work Phone: [facility] Work Phone: Start: 04-24-2023 End: 04-24-[address] Alexy Douglas Work Phone: [facility]-Laboratory, y Office 3rd Flr Start: 04-24-2023 End: 04-24-2023 Dr. Alexy Douglas Work Phone: [facility]-Laboratory, y Office 3rd Flr Start: 04-24-2023 Non-patient / Non-visit Dr. eLw Douglas Work Phone: [facility] Start: 04-24-2023 End: 04-24-[address] Alexy Douglas Work Phone: [facility] Work Phone: Start: 04-24-2023 End: 04-24-[address] Alexy Douglas Work Phone: [facility]-Ultrasound, [facility] Work Phone: Start: 04-24-2023 End: 04-24-2023 Dr. Alexy Douglas Work Phone: [facility] Start: 04-15-2023 Non-patient / Non-visit Dr. Lew Douglas Work Phone: [facility] Start: 04-15-2023 Dr. Alexy Douglas Work Phone: [facility] Start: 04-15-2023 End: 04-15-[address] Alexy Douglas Work Phone: [facility] Work Phone: Start: 04-15-2023 End: 04-15-[address] Alexy Douglas Work Phone: [facility] Medicine [facility] Work Phone: Start: 04-15-2023 End: 04-15-2023 Dr. Alexy Douglas Work Phone: [facility] Medicine [facility] Work Phone: Start: 04-05-2023 End: 04-05-[address] Alexy Douglas Work Phone: [facility] Work Phone: Start: 04-05-2023 End: 04-05-[address] Alexy Douglas Work Phone: [facility] Work Phone: Start: 04-05-2023 End: 04-05-2023 Dr. Alexy Douglas Work Phone: [facility] Work Phone: Start: 03-26-2023 Non-patient / Non-visit Dr. Lew Douglas Work Phone: [facility] Start: 03-26-2023 Dr. Alexy Douglas Work Phone: [facility] Start: 03-26-2023 End: 03-26-[address] Alexy Douglas Work Phone: [facility] Work Phone: Start: 03-26-2023 End: 03-26-[address] Alexy Douglas Work Phone: [facility] Work Phone: Start: 03-26-2023 End: 03-26-2023 Dr. lAexy Douglas Work Phone: [facility] Work Phone: Start: 03-22-2023 End: 03-22-[address] Alexy Douglas Work Phone: [facility] Work Phone: Start: 03-22-2023 End: 03-22-2023 Dr. Alexy Douglas Work Phone: [facility] Work Phone: Start: 03-15-2023 Non-patient / Non-visit Dr. Lew Douglas Work Phone: [facility] Start: 03-15-2023 Dr. Alexy Douglas Work Phone: [facility] Start: 03-15-2023 End: 03-15-[address] Alexy Douglas Work Phone: [facility] Work Phone: Start: 03-15-2023 End: 03-15-[address] Alexy Douglas Work Phone: [facility] Work Phone: Start: 03-15-2023 End: 03-15-2023 Dr. Alexy Douglas Work Phone: [facility] Work Phone: Start: 03-14-2023 End: 03-14-[address] Alexy Douglas Work Phone: [facility] Work Phone: Start: 03-14-2023 End: 03-14-[address] [facility] Work Phone: Start: 03-14-2023 End: 03-14-2023 Dr. Alex[facility] Work Phone: Start: 03-06-2023 Non-patient / Non-visit Dr. Lew Douglas Work Phone: [facility] Start: 03-06-2023 End: 03-06-[address] Alexy [facility] Work Phone: Start: 03-06-2023 End: 03-06-2023 Dr. Alexy Douglas Work Phone: [facility]-Ultrasound, [facility] Work Phone: Start: 03-05-2023 End: 03-05-[address] Alexy Douglas Work Phone: [facility] Start: 03-05-2023 End: 03-05-2023 Dr. Alexy Douglas Work Phone: [facility] Start: 02-20-2023 End: 02-20-[address] lAexy Douglas Work Phone: [facility] Work Phone: Start: 02-20-2023 End: 02-20-[address] Alexy Douglas Work Phone: [facility]-Radiology, [facility] Work Phone: Start: 02-20-2023 End: 02-20-2023 Dr. Alexy [facility] Work Phone: Start: 02-19-2023 End: 02-19-[address] Alexy Douglas Work Phone: [facility] Work Phone: Start: 02-19-2023 End: 02-19-[address] Alexy [facility] Start: 02-19-2023 End: 02-19-2023 Dr. Alexy [facility] Start: 02-16-2023 Non-patient / Non-visit Dr. Lew Douglas Work Phone: [facility] In[facility] Phys[facility] Work Phone: Start: 02-16-2023 Dr. Alexy Douglas Work Phone: [facility] Work Phone: Start: 02-15-2023 End: 02-16-2023 Evaluation and management of inpatient Dr. Alexy Douglas [facility] Work [facility]: Start: 02-15-2023 Non-patient / Non-visit Dr. Lew Douglas Work Phone: [facility] Start: 02-15-2023 End: 02-16-2023 Dr. Alexy Douglas [facility] Work [facility]: Start: 02-15-2023 Non-patient / Non-visit Dr. Lew Douglas Work Phone: [facility] Start: 02-15-2023 Dr. Alexy Douglas Work Phone: [facility] Start: 02-15-2023 Non-patient / Non-visit Dr. Lew Douglas Work Phone: [facility] Start: 02-15-2023 Dr. Alexy Douglas Work Phone: [facility] Start: 02-14-2023 Evaluation and management of inpatient Dr. Alexy Douglas Work Phone: [facility] Care Unit Work Phone: Start: 02-14-2023 Non-patient / Non-visit Dr. Lew Douglas Work Phone: [facility] Phys[facility] Work Phone: Start: 02-14-[address] Alexy Douglas Work Phone: [facility] Work Phone: Start: 02-14-2023 Dr. Alexy Douglas Work Phone: [facility] Work Phone: Start: 02-12-2023 End: 02-12-[address] Alexy Douglas Work Phone: [facility] Work Phone: Start: 02-12-2023 End: 02-12-[address] Alexy Douglas Work Phone: [facility]-Ultrasound, [facility] Work Phone: Start: 02-12-2023 End: 02-12-2023 Dr. Alexy Douglas Work Phone: [facility]-Ultrasound, [facility] Work Phone: Start: 01-30-2023 End: 01-30-[address] Alexy Douglas Work Phone: [facility] Work Phone: Start: 01-30-2023 End: 01-30-[address] Alexy Douglas Work Phone: [facility]-Laboratory, [facility] Office 3rd Wyr Start: 01-30-2023 End: 01-30-2023 Dr. Alexy Douglas Work Phone: [facility], [facility] Office [facility] Flr Start: 01-25-2023 End: 01-25-[address] Alexy Douglas Work Phone: [facility] Work Phone: Start: 01-25-2023 End: 01-25-[address] Alexy Douglas Work Phone: [facility]-Ultrasound, [facility] Work Phone: Start: 01-25-2023 End: 01-25-2023 Dr. Alexy Douglas Work Phone: [facility]-Ultrasound, [facility] Work Phone: Start: 01-25-2023 End: 01-25-[address] Alexy Douglas Work Phone: [facility]-Cat Scan, [facility] Work Phone: Start: 01-25-2023 End: 01-25-2023 Dr. Alexy Douglas [facility] Work Phone: Start: 01-15-2023 End: 01-15-[address] Alexy Douglas Work Phone: [facility] Work Phone: Start: 01-15-2023 End: 01-15-[address] Alexy Douglas Work Phone: [facility]-Radiology, [facility] Work Phone: Start: 01-15-2023 End: 01-15-2023 Dr. Alexy Douglas [facility] Work Phone: Start: 01-14-2023 End: 01-14-[address] Alexy [facility] Fl[facility] Start: 01-14-2023 End: 01-14-2023 Dr. Alexy [facility] Start: 12-26-2022 End: 01-15-[address] Alexy Douglas [facility] Work [facility]: Start: 12-26-[address] Alexy reynolds [facility] Work [facility] Start: 12-26-2022 End: 01-15-2023 Dr. Alxey Douglas [facility] Work [facility]: Start: 12-12-2022 End: 12-12-[address] Alexy Douglas [facility] 3[facility] Flr Start: 12-12-2022 End: 12-12-2022 Dr. Alexy Douglas Work Phone: [facility], [address] Start: 11-30-2022 End: 11-30-[address] Alexy Douglas Work Phone: [facility] Work Phone: Start: 11-30-2022 End: 11-30-2022 Dr. Alexy Douglas Work Phone: [facility] Work Phone: Start: 11-30-2022 End: 11-30-[address] Alexy Douglas Work Phone: [facility] Work Phone: Start: 11-30-2022 End: 11-30-[address] Alexy Douglas Work Phone: [facility]-Pre-Admission Testing Work Phone: Start: 11-30-2022 End: 11-30-2022 Dr. Alexy Douglas Work Phone: [facility]-Pre-Admission Testing Work Phone: Start: 11-26-2022 End: 11-26-[address] Alexy Douglas Work Phone: [facility] Work Phone: Start: 11-26-2022 End: 11-26-[address] Alexy Douglas Work Phone: [facility]-Pulmonary Services/Neurology Work Phone: Start: 11-26-2022 End: 11-26-2022 Dr. Alexy Douglas Work Phone: [facility]-Pulmonary Services/Neurology Work Phone: Start: 11-21-2022 End: 11-21-[address] Alexy Douglas Work Phone: [facility] Work Phone: Start: 11-21-2022 End: 11-21-[address] Alexy Douglas Work Phone: [facility]-Radiology, [facility] Work Phone: Start: 11-21-2022 End: 11-21-2022 Dr. Alexy Douglas Work Phone: [facility]-Radiology, [facility] Work Phone: Start: 11-16-2022 End: 11-16-[address] Alexy Douglas Work Phone: [facility] Work Phone: Start: 11-16-2022 End: 11-16-[address] Alexy Douglas Work Phone: [facility]-Cat Scan, [facility] Work Phone: Start: 10-31-2022 End: 10-31-[address] Alexy Douglas Work Phone: [facility] Work Phone: Start: 10-31-2022 End: 10-31-[address] Alexy Douglas Work Phone: [facility]-Outpatient Bone Densitometry Work Phone: Start: 10-15-2022 End: 10-15-[address] Alexy Douglas Work Phone: [facility] Work Phone: Start: 10-15-2022 End: 10-15-[address] Alexy Douglas Work Phone: [facility]-Laboratory, Phy Office 3rd Wyr Start: 10-08-2022 End: 10-08-[address] Alexy Douglas Work Phone: [facility] Work Phone: Start: 10-08-2022 End: 10-08-[address] Alexy Douglas Work Phone: [facility], [facility] Office 3rd Flr Start: 08-28-2022 End: 08-28-[address] Alexy Douglas Work Phone: [facility] Work Phone: Start: 07-16-2022 End: 07-16-[address] Alexy Douglas Work Phone: [facility] Work Phone: Start: 07-16-2022 End: 07-16-[address] Alexy Douglas Work Phone: [facility], [facility] Office 3rd Flr Start: 05-18-2022 End: 05-18-[address] Alexy Douglas Work Phone: [facility] Work Phone: Start: 05-18-2022 End: 05-18-[address] Alexy Douglas Work Phone: [facility], [facility] Office 3rd Flr Start: 05-14-2022 End: 05-14-[address] Alexy Douglas Work Phone: [facility] Office 3rd Flr Start: 05-11-2022 End: 05-11-[address] Alexy Douglas Work Phone: [facility] Work Phone: Start: 05-11-2022 End: 05-11-[address] Alexy Douglas Work Phone: [facility], [facility] Office 3rd Flr Start: 05-02-2022 End: 05-02-[address] Alexy Douglas Work Phone: [facility] Work Phone: Start: 05-02-2022 End: 05-02-[address] [facility] 3rd Flr Start: 04-18-2022 End: 04-18-[address] Alexy Douglas Work Phone: [facility] Work Phone: Start: 04-18-2022 End: 04-18-[address] Alexy [facility] Office 3rd Flr Start: 04-13-2022 Non-patient / Non-visit Dr. Lew Douglas Work Phone: [facility] Start: 04-10-2022 End: 04-10-[address] Alexy Douglas Work Phone: [facility] Work Phone: Start: 04-10-2022 End: 04-10-[address] Alexy Douglas Work Phone: [facility]-Cardiovascula r Services Start: 04-04-2022 End: 04-04-[address] Alexy Douglas Work Phone: [facility] Work Phone: Start: 04-04-2022 End: 04-04-[address] Alexy Douglas Work Phone: [facility]-Laboratory Start: 04-04-2022 End: 04-04-[address] Alexy Douglas Work Phone: [facility] Start: 03-20-2022 End: 03-20-[address] Alexy Douglas Work Phone: [facility] Work Phone: Start: 03-20-2022 End: 03-20-[address] Alexy Douglas Work Phone: [facility]-Laboratory Start: 02-13-2022 End: 02-13-[address] Alexy Douglas Work Phone: [facility] Work Phone: Start: 02-13-2022 End: 02-13-[address] Alexy Douglas Work Phone: [facility]-Pulmonary Services/Neurology Start: 01-29-2022 End: 01-29-[address] Alexy Douglas Work Phone: [facility] Heart [facility] Start: 01-16-2022 End: 01-16-[address] Alexy Douglas Work Phone: [facility] Work Phone: Start: 01-16-2022 End: 01-16-[address] [facility] Start: 01-15-2022 End: 01-15-[address] Alexy Douglas [facility] Office 3rd Wyr Start: 12-20-2021 End: 12-20-2021 Emergency department patient visit Dr. Alexy Douglas Work Phone: [facility]-Emergency Department Start: 11-08-2021 End: 11-08-[address] Alexy Douglas Work Phone: [facility] Work Phone: Start: 11-08-2021 End: 11-08-[address] [facility] Start: 10-30-2021 End: 10-30-[address] [facility] Start: 10-30-2021 End: 10-30-[address] Alexy Douglas Work Phone: [facility] Start: 10-24-2021 Non-patient / Non-visit Dr. Lew Douglas Work Phone: [facility] Inpatient Physicians Start: 10-15-2021 End: 10-25-2021 Evaluation and management of inpatient Dr. Alexy Douglas [facility] Start: 10-15-2021 Non-patient / Non-visit Dr. Lew Douglas Work Phone: [facility] Inpatient Physicians Start: 10-14-2021 Non-patient / Non-visit Dr. Lew Douglas Work Phone: [facility] Start: 10-13-2021 Non-patient / Non-visit Dr. Lew Douglas Work Phone: [facility] Start: 10-13-2021 Non-patient / Non-visit Dr. Lew Douglas Work Phone: [facility] Start: 10-12-2021 Non-patient / Non-visit Dr. Lew Douglas Work Phone: [facility] Start: 10-12-2021 Non-patient / Non-visit Dr. Lew Douglas Work Phone: [facility] Start: 10-11-2021 Non-patient / Non-visit Dr. Lew Douglas Work Phone: [facility] Start: 10-10-2021 Non-patient / Non-visit Dr. Lew Douglas Work Phone: [facility] Start: 10-09-2021 Non-patient / Non-visit Dr. Lew Douglas Work Phone: [facility] Start: 10-09-2021 End: 10-15-2021 Evaluation and management of [facility] Start: 10-02-2021 Non-patient / Non-visit Dr. Lew Douglas Work Phone: [facility] Start: 10-02-2021 End: 10-02-[address] [facility] Start: 09-06-2021 End: 09-06-[address] Alexy Douglas Work Phone: [facility] Start: 07-12-2021 End: 07-12-[address] [facility] Start: 06-14-2021 End: 06-14-[address] Alexy Douglas Work Phone: [facility] Start: 05-29-2021 End: 05-29-[address] Alexy Douglas Work Phone: [facility] Start: 05-22-2021 End: 05-22-[address] Alexy Douglas Work Phone: [facility] Start: 05-17-2021 End: 05-17-[address] [facility] Start: 05-17-2021 End: 05-17-[address] Alexy Douglas Work Phone: [facility] Start: 05-02-2021 End: 05-02-[address] Alexy Douglas Work Phone: [facility] Start: 04-10-2021 End: 04-10-[address] Alexy Douglas Work Phone: [facility] Procedures Date Procedure Procedure Detail Performing Clinician Start: 07-14-2024 Blood count smear mc rscp w/mnl difrntl wbc count Dr. Alexy Douglas MD Work Phone: Start: 07-14-[address] Alexy Douglas MD Work Phone: Start: 07-14-2024 Mean corpuscular hemoglobin concentration determination Dr. Alexy Douglas MD Work Phone: Start: 07-14-2024 Nucleated red blood cell count procedure Dr. Alexy Douglas MD Work Phone: Start: 07-14-2024 Platelet mean volume determination Dr. Alexy Douglas MD Work Phone: Start: 07-07-2024 X-ray of chest, PA a nd lateral views Dr. Alexy Douglas MD Work Phone: Start: 07-07-2024 Plain X-ray abdomen Dr. Alexy Douglas MD Work Phone: Start: 07-06-2024 Blood count smear mc rscp w/mnl difrntl wbc count Dr. Alexy Douglas MD Work Phone: Start: 07-06-[address] Alexy Douglas MD Work Phone: Start: 07-06-2024 Mean corpuscular hemoglobin concentration determination Dr. Alexy Douglas MD Work Phone: Start: 07-06-2024 Nucleated red blood cell count procedure Dr. Alexy Douglas MD Work Phone: Start: 07-06-2024 Platelet mean volume determination Dr. Alexy Douglas MD Work Phone: Start: 07-04-2024 Plain X-ray abdomen Dr. Alexy Douglas MD Work Phone: Start: 07-03-2024 Serum inorganic phos phate measurement Dr. Alexy Douglas MD Work Phone: Start: 07-01-2024 Plain X-ray abdomen Dr. Alexy Douglas MD Work Phone: Start: 07-01-[address] Alexy Douglas MD Work Phone: Start: 07-01-2024 Total cholesterol:HD L ratio measurement Dr. Alexy Douglas MD Work Phone: Start: 06-30-[address] Lew Douglas MD Work Phone: Start: 06-30-2024 End: 06-30-2024 Bacterial nucleic acid assay Dr. Alexy Douglas MD Work Phone: Start: 06-30-[address] Alexy reynolds MD Work Phone: Start: 06-30-2024 Gram stain microscopy D juanita Douglas MD Work Phone: Start: 06-30-2024 End: 06-30-2024 Microbial culture, routine Dr. Alexy Douglas MD Work Phone: Start: 06-30-2024 Dr. Alexy rodriguez MD Work Phone: Start: 06-30-2024 Plain X-ray of tibia and fibula Dr. Alexy Douglas MD Work Phone: Start: 06-30-2024 Plain chest X-ray Dr. Herman Douglas MD Work Phone: Start: 06-30-2024 Carbon dioxide measurement, partial pressure Dr. Alexy Douglas MD Work Phone: Start: 06-30-2024 Gases blood o2 satur ation only direct bob Dr. Alexy Douglas MD Work Phone: Start: 06-30-2024 Measurement of parti al pressure of oxygen in blood Dr. Alexy Douglas MD Work Phone: Start: 06-30-[address] Alexy Douglas MD Work Phone: Start: 06-30-2024 Urine microscopy: re d cells Dr. Alexy Douglas MD Work Phone: Start: 06-30-2024 Urnls dip stick/tabl et reagent auto microscopy Dr. Alexy Douglas MD Work Phone: Start: 06-30-2024 CT of head without contrast Dr. Alexy Douglas MD Work Phone: Start: 06-29-2024 Venous oxygen satura tion measurement Dr. Alexy Douglas MD Work Phone: Start: 06-26-2024 Evaluation of diagno stic study results Dr. Alexy Douglas MD Work Phone: Start: 06-22-2024 Blood count smear mc rscp w/mnl difrntl wbc count Dr. Alexy Douglas MD Work Phone: Start: 06-22-2024 Calculation of international normalized ratio Dr. Alexy Douglas MD Work Phone: Start: 06-22-2024 Mean corpuscular hemoglobin concentration determination Dr. Alexy Douglas MD Work Phone: Start: 06-22-2024 Nucleated red blood cell count procedure Dr. Alexy Douglas MD Work Phone: Start: 06-22-2024 Platelet mean volume determination Dr. Alexy Douglas MD Work Phone: Start: 04-28-2024 Anion gap measurement D juanita Douglas MD Work Phone: Start: 04-28-2024 Blood count smear mc rscp w/mnl difrntl wbc count Dr. Alexy Douglas MD Work Phone: Start: 04-28-2024 BUN/Creatinine ratio Dr Eric Douglas MD Work Phone: Start: 04-28-[address] Alexy Douglas MD Work Phone: Start: 04-28-2024 Mean corpuscular hemoglobin concentration determination Dr. Alexy Douglas MD Work Phone: Start: 04-28-2024 Measurement of renal function Dr. Alexy Douglas MD Work Phone: Start: 04-28-2024 Nucleated red blood cell count procedure Dr. Alexy Douglas MD Work Phone: Start: 04-28-2024 Platelet mean volume determination Dr. Alexy Douglas MD Work Phone: Start: 04-26-2024 Bacterial nucleic ac id assay Dr. Alexy Douglas MD Work Phone: Start: 04-26-2024 Legionella pneumophi la antigen assay Dr. Alexy Douglas MD Work Phone: Start: 04-26-2024 End: 04-26-2024 Streptococcus pneumoniae antigen assay Dr. Alexy Douglas MD Work Phone: Start: 04-26-2024 Albumin/Globulin ratio Dr. Alexy Douglas MD Work Phone: Start: 04-26-[address] Alexy Douglas MD Work Phone: Start: 04-25-[address] Lew Douglas MD Work Phone: Start: 04-25-2024 Plain chest X-ray Dr. Herman Douglas MD Work Phone: Start: 04-25-2024 Assay of phosphorus inorganic Dr. Alexy Douglas MD Work Phone: Start: 04-25-[address] Alexy reynolds MD Work Phone: Start: 04-25-2024 Dr. Alexy rodriguez MD Work Phone: Start: 04-24-[address] Alexy Douglas MD Work Phone: Start: 04-22-2024 Dr. Alexy rodriguez MD Work Phone: Start: 04-20-[address] Alexy Douglas MD Work Phone: Start: 04-13-2024 Dr. Alexy rodriguez MD Work Phone: Start: 04-07-2024 Anion gap measurement Choco Douglas MD Work Phone: Start: 04-07-2024 BUN/Creatinine ratio Dr Eric Douglas MD Work Phone: Start: 04-07-[address] Alexy Douglas MD Work Phone: Start: 04-07-2024 Measurement of renal function Dr. Alexy Douglas MD Work Phone: Start: 04-06-[address] Alexy Douglas MD Work Phone: Start: 04-06-[address] Herman Douglas MD Work Phone: Start: 04-06-2024 Gram stain microscopy D juanita Douglas MD Work Phone: Start: 04-06-2024 Plain chest X-ray Dr. Herman Douglas MD Work Phone: Start: 04-06-2024 End: 04-06-2024 Blood count leukocyte wbc automated Dr. Alexy Douglas MD Work Phone: Start: 04-06-2024 Glucose measurement, body fluid Dr. Alexy Douglas MD Work Phone: Start: 04-06-2024 Lactate dehydrogenas e measurement, body fluid Dr. Alexy Douglas MD Work Phone: Start: 04-06-[address] Alexy Douglas MD Work Phone: Start: 04-06-[address] Alexy Douglas MD Work Phone: Start: 04-06-2024 Ultrasonic guidance for thoracentesis Dr. Alexy Douglas MD Work Phone: Start: 04-06-2024 Albumin/Globulin ratio Dr. Alexy Douglas MD Work Phone: Start: 04-06-2024 Mean corpuscular hemoglobin concentration determination Dr. Alexy Douglas MD Work Phone: Start: 04-06-2024 Nucleated red blood cell count procedure Dr. Alexy Douglas MD Work Phone: Start: 04-06-2024 Platelet mean volume determination Dr. Alexy Douglas MD Work Phone: Start: 04-05-2024 Legionella pneumophi la antigen assay Dr. Alexy Douglas MD Work Phone: Start: 0 End: 04-05-2024 Streptococcus pneumoniae antigen assay Dr. Alexy Douglas MD Work Phone: Start: 04-05-2024 Dr. Alexy rodriguez MD Work Phone: Start: 04-05-2024 Plain chest X-ray Dr. Herman Douglas MD Work Phone: Start: 04-05-2024 Venous oxygen satura tion measurement Dr. Alexy Douglas MD Work Phone: Start: 04-05-[address] Lew Douglas MD Work Phone: Start: 04-01-2024 X-ray of chest, PA a nd lateral views Dr. Alexy Douglas MD Work Phone: Start: 03-31-2024 Albumin/Globulin ratio Dr. Alexy Douglas MD Work Phone: Start: 03-31-2024 Anion gap measurement Choco Douglas MD Work Phone: Start: 03-31-2024 Blood count smear mc rscp w/mnl difrntl wbc count Dr. Alexy Douglas MD Work Phone: Start: 03-31-2024 BUN/Creatinine ratio Dr Eric Douglas MD Work Phone: Start: 03-31-2024 Mean corpuscular hemoglobin concentration determination Dr. Alexy Douglas MD Work Phone: Start: 03-31-2024 Measurement of renal function Dr. Alexy Douglas MD Work Phone: Start: 03-31-2024 Nucleated red blood cell count procedure Dr. Alexy Douglas MD Work Phone: Start: 03-31-2024 Platelet mean volume determination Dr. Alexy Douglas MD Work Phone: Start: 03-31-2024 Vitamin D, 25-hydrox y measurement Dr. Alexy Douglas MD Work Phone: Start: 03-16-2024 Dr. Alexy rodriguez MD Work Phone: Start: 03-16-2024 CT angiography of ch est with contrast Dr. Alexy Douglas MD Work Phone: Start: 03-16-2024 Plain chest X-ray Dr. Herman Douglas MD Work Phone: Start: 07-05-2023 Plain chest X-ray Dr. Herman Douglas Work Phone: Start: 07-05-2023 Ultrasonic guidance for thoracentesis Dr. Alexy Douglas Work Phone: Start: 06-27-2023 Ultrasonic guidance for thoracentesis Dr. Alexy Douglas Work Phone: Start: 06-27-2023 Plain chest X-ray Dr. Herman Douglas Work Phone: Start: 06-17-2023 Plain chest X-ray Dr. Herman Douglas Work Phone: Start: 06-17-2023 Ultrasonic guidance for thoracentesis Dr. Alexy Douglas Work Phone: Start: 06-17-2023 Thoracentesis LIAT PARKS MD Comment on above: 14th one for 1330cc Start: 06-06-2023 Plain chest X-ray Dr. Herman Douglas Work Phone: Start: 06-06-2023 Ultrasonic guidance for thoracentesis Dr. Alexy Douglas Work Phone: Start: 05-24-2023 Plain chest X-ray Dr. Herman Douglas Work Phone: Start: 05-24-2023 Ultrasonic guidance for thoracentesis Dr. Alexy Douglas Work Phone: Start: 05-13-2023 Plain chest X-ray Dr. Herman Douglas Work Phone: Start: 05-13-2023 Ultrasonic guidance for thoracentesis Dr. Alexy Douglas Work Phone: Start: 05-03-2023 CT of chest without contrast Dr. Alexy Douglas Work Phone: Start: 05-01-2023 Plain chest X-ray Dr. Herman Douglas Work Phone: Start: 05-01-2023 Ultrasonic guidance for thoracentesis Dr. Alexy Douglas Work Phone: Start: 04-24-2023 Plain chest X-ray Dr. Herman Douglas Work Phone: Start: 04-24-2023 Ultrasonic guidance for thoracentesis Dr. Alexy Douglas Work Phone: Start: 04-15-2023 End: 04-15-2023 Plain chest X-ray Dr. Alexy Douglas Work Phone: Start: 04-15-2023 Ultrasonic guidance for thoracentesis Dr. Alexy Douglas Work Phone: Start: 03-26-2023 Plain chest X-ray Dr. Herman Douglas Work Phone: Start: 03-26-2023 Ultrasonic guidance for thoracentesis Dr. Alexy Douglas Work Phone: Start: 03-15-2023 Plain chest X-ray Dr. Herman Douglas Work Phone: Start: 03-15-2023 Ultrasonic guidance for thoracentesis Dr. Alexy Douglas Work Phone: Start: 03-14-2023 Radionuclide whole b mike bone study Dr. Alexy Douglas Work Phone: Start: 03-06-[address] Alexy Douglas Work Phone: Start: 03-06-[address] Herman Douglas Work Phone: Start: 03-06-2023 Investigation of transfusion reaction Dr. Alexy Douglas Work Phone: Start: 03-06-2023 Plain chest X-ray Dr. Herman Douglas Work Phone: Start: 03-06-2023 Ultrasonic guidance for thoracentesis Dr. Alexy Douglas Work Phone: Start: 03-05-2023 Positron emission tomography with computed tomography Dr. Alexy Douglas Work Phone: Start: 02-20-2023 Coronavirus COVID-[address] Alexy Douglas Work Phone: Start: 02-20-2023 Influenza Types A,B Direct FA (JAMILA) Dr. Alexy Douglas Work Phone: Start: 02-20-2023 Respiratory syncytia l virus antigen assay Dr. Alexy Douglas Work Phone: Start: 02-20-2023 Dr. Alexy rodriguez Work Phone: Start: 02-20-2023 Plain chest X-ray Dr. Herman Douglas Work Phone: Start: 02-16-2023 Bacteria Detection (PCR) Dr. Alexy Douglas Work Phone: Start: 02-16-2023 Bacteria identified in Blood by Culture Dr. Alexy Douglas Work Phone: Start: 02-16-2023 Dr. Alexy rodriguez Work Phone: Start: 02-15-[address] Alexy Douglas Work Phone: Start: 02-15-[address] Herman Douglas Work Phone: Start: 02-15-2023 Investigation of transfusion reaction Dr. Alexy Douglas Work Phone: Start: 02-15-2023 Plain chest X-ray Dr. Herman Douglas Work Phone: Start: 02-15-2023 Ultrasonic guidance for thoracentesis Dr. Alexy Douglas Work Phone: Start: 02-14-2023 CT of chest, abdomen and pelvis without contrast Dr. Alexy Douglas Work Phone: Start: 02-14-2023 Plain chest X-ray Dr. Herman Douglas Work Phone: Start: 02-14-2023 SARS-CoV-2 & FLU Ant igen (Rapid) Dr. Alexy Douglas Work Phone: Start: 02-14-[address] Alexy reynolds Work Phone: Start: 02-14-[address] Alexy Douglas Work Phone: Start: 02-14-2023 Dr. Alexy rodriguez Work Phone: Start: 02-12-2023 Plain chest X-ray Dr. Herman Douglas Work Phone: Start: 02-12-2023 Ultrasonic guidance for thoracentesis Dr. Alexy Douglas Work Phone: Start: 01-30-2023 Plain chest X-ray Dr. Herman Douglas Work Phone: Start: 01-25-[address] Alexy Douglas Work Phone: Start: 01-25-[address] Herman Douglas Work Phone: Start: 01-25-2023 Investigation of transfusion reaction Dr. Alexy Douglas Work Phone: Start: 01-25-2023 Plain chest X-ray Dr. Herman Douglas Work Phone: Start: 01-25-2023 CT of chest without contrast Dr. Alexy Douglas Work Phone: Start: 01-25-2023 Ultrasonic guidance for thoracentesis Dr. Alexy Douglas Work Phone: Start: 01-15-2023 Plain chest X-ray Dr. Herman Douglas Work Phone: Start: 11-30-2022 Nasal Screen MRSA/MSSA Dr. Alexy Douglas Work Phone: Start: 11-30-2022 Dr. Alexy rodriguez Work Phone: Start: 11-26-2022 Coronavirus COVID-[address] Alexy Douglas Work Phone: Start: 11-26-2022 Influenza Types A,B Direct FA (JAMILA) Dr. Alexy Douglas Work Phone: Start: 11-26-2022 Respiratory syncytia l virus antigen assay Dr. Alexy Douglas Work Phone: Start: 11-26-2022 Dr. Alexy rodriguez Work Phone: Start: 11-21-2022 Plain chest X-ray Dr. Herman Douglas Work Phone: Start: 11-16-2022 MRI of lower extremity Dr. Alexy Douglas Work Phone: Start: 10-31-2022 Dual energy X-ray absorptiometry Dr. Alexy Douglas Work Phone: Start: 05-18-[address] Eric Douglas Work Phone: Start: 05-18-2022 X-ray of both feet Dr. Alexy Douglas Work Phone: Start: 05-11-2022 Plain chest X-ray Dr. Herman Douglas Work Phone: Start: 04-13-2022 Cardiovascular stres s test using pharmacologic stress agent Dr. Alexy Douglas Work Phone: Start: 04-04-2022 Plain chest X-ray Dr. Herman Douglas Work Phone: Start: 12-20-[address] Eric Douglas Work Phone: Start: 12-20-2021 X-ray of both feet Dr. Alexy Douglas Work Phone: Start: 10-09-2021 Plain chest X-ray Dr. Herman Douglas Work Phone: Start: 09-06-2021 Plain chest X-ray Dr. Herman Douglas Work Phone: Start: 03-20-2019 Cardioversion LIAT PARKS MD Start: 12-31-2016 End: 01-03-2017 *BMP Chad Woodard REGULATORY AFFAIRS ASSISTANT Work Phone: Start: 12-17-2016 End: 12-17-2016 Ecg routine ecg w/least 12 lds w/i&r Chad Woodard REGULATORY AFFAIRS ASSISTANT Work Phone: Start: 12-07-2016 End: 12-14-2016 *MISC - Miscellaneous Lab Test #1 Bsesy Galan TOWER DIRECTOR Work Phone: Start: 12-07-2016 End: 12-14-2016 DMB Bessy Galan TOWER DIRECTOR Work Phone: Start: 12-07-2016 End: 12-14-2016 Follow Up Appt 2 months Bessy vallejo TOWER DIRECTOR Work Phone: Start: 12-07-2016 End: 12-14-2016 Pulmonary Function Test - complete Bessy Galan CNP Work Phone: Start: 12-07-2016 End: 12-14-2016 Pulmonary stress test/simple Bessy Galan TOWER DIRECTOR Work Phone: Start: 12-07-2016 End: 12-07-2016 Dietary management education, guidance, and counseling Pat Pa Start: 12-07-2016 End: 12-14-2016 *MISC - Miscellaneous Lab Test #1 Bessy Galan TOWER DIRECTOR Work Phone: Start: 12-07-2016 End: 12-14-2016 DMB Bessy Galan CNP Work Phone: Start: 12-07-2016 End: 12-14-2016 Follow Up Appt 2 months Bessy vallejo TOWER DIRECTOR Work Phone: Start: 12-07-2016 End: 12-14-2016 Pulmonary Function Test - complete Bessy Galan CNP Work Phone: Start: 12-07-2016 End: 12-14-2016 Pulmonary stress test/simple Bessy Galan CNP Work Phone: Start: 10-18-2016 End: 10-18-2016 Follow Up Appt 6 months Wei Adamson Start: 10-18-2016 End: 10-18-2016 SEB Tesfaye MD Start: 10-18-2016 End: 10-18-2016 Follow Up Appt 6 months Wei Adamson Start: 10-18-2016 End: 10-18-2016 SEB Tesfaye MD Start: 04-06-2016 End: 04-06-2016 KELLEY DyerC Work Phone: Start: 04-06-2016 End: 04-06-2016 Follow Up Appt 6 months Mitali Hagen PA-C Work Phone: Start: 04-06-2016 End: 04-06-2016 MOLD DRESSER Mitali Hagen PA-C Work Phone: Start: 04-06-2016 [...] PA-C Work Phone: Start: 05-11-2015 End: 05-16-2015 *GLENN Hagen PA-C Work Phone: Start: 03-30-2015 End: 04-03-2016 Ambulatory BP Monitor 24 HR Mitali Hagen PA-C Work Phone: Start: 03-30-2015 End: 03-30-2015 MOLD DRESSER Mitali Hagen PA-C Work Phone: Start: 03-30-2015 End: 03-30-2015 Follow Up Appt 6 months Mitali Hagen PA-C Work Phone: Start: 03-30-2015 End: 03-30-2015 Follow Up BP Check Mitali Hagen PA-C Work Phone: Start: 03-30-2015 End: 04-03-2016 Ambulatory BP Monitor 24 HR Mitali Hagen PA-C Work Phone: Start: 03-30-2015 End: 03-30-2015 LUDMILA Hagen PA-C Work Phone: Start: 03-30-2015 End: [...] Roosevelt Tesfaye MD Start: 08-16-2014 End: 08-16-2014 MOLD DRESSER Mitali Hagen PA-C Work Phone: Start: 08-16-2014 End: 08-17-2014 Documentation of current medications Mitali Hagen PA-C Work Phone: Start: 08-16-2014 End: 08-16-2014 Follow Up Appt 6 weeks Mitali Hagen PA-C Work Phone: Start: 08-16-2014 End: 08-27-2014 Pulmonary Function Test - complete Mitali Hagen PA-C Work Phone: Start: 08-16-2014 End: 08-16-2014 LUDMILA Hagen PA-C Work Phone: Start: 08-16-2014 End: 08-17-2014 Documentation of current medications Mitali Hagen PA-C Work Phone: Start: 08-16-2014 End: 08-16-2014 Follow Up Appt 6 weeks Mitali Hagen PA-C Work Phone: Start: 08-16-2014 End: 08-27-2014 Pulmonary Function Test - complete Mitali Hagen PA-C Work Phone: Start: 05-31-2014 Catheterization of l eft heart LIAT GARDINER MD Start: 05-18-2014 End: 05-18-2014 *BMP Roosevelt [...] Roosevelt Tesfaye MD Start: 11-19-2013 End: 11-19-2013 MOLD DRESSER Mitali Hagen PA-C Work Phone: Start: 11-19-2013 End: 11-19-2013 Follow Up Appt 6 months Mitali Hagen PA-C Work Phone: Start: 11-19-2013 End: 11-19-2013 Follow Up Appt Other Mitali Hagen PA-C Work Phone: Start: 11-19-2013 End: 11-19-2013 MOLD DRESSER Mitali Hagen PA-C Work Phone: Start: 11-19-2013 [...] months Wei Adamson Start: 07-02-2013 End: 08-11-2013 MMM Roosevelt Tesfaye MD Start: 07-02-2013 End: 07-03-2013 Natriuretic [...] months Wei Adamson Start: 05-05-2013 End: 05-05-2013 SEB Tesfaye MD Start: 03-19-2013 End: 03-19-2013 MOLD DRESSER Mitali Hagen PA-C Work Phone: Start: 03-19-2013 End: 03-19-2013 Follow Up Appt 4 months Mitali Hagen PA-C Work Phone: Start: 03-19-2013 End: 08-11-2013 Nuclear stress test -exercise Mitali Hagen PA-C Work Phone: Start: 03-19-2013 End: 03-19-2013 MOLD DRESSER Mitali Hagen PA-C Work Phone: Start: 03-19-2013 End: 03-19-2013 Follow Up Appt 4 months Mitali Hagen PA-C Work Phone: Start: 03-19-2013 End: 08-11-2013 Nuclear stress test -exercise Miatli Hagen PA-C Work Phone: Start: 05-26-2012 End: 07-03-2013 Bacteria identified in Urine by Culture Vi Pulliam MD Start: 05-26-2012 End: 07-03-2013 Urine culture, bacteria Vi Wilhelm Bacteria identified in Blood by Culture Dr. Alexy Douglas Work Phone: Colonoscopy LIAT GARDINER MD Excision biopsy of s kin lesion LIAT GARDINER MD Extraction of cataract TAMIE GARDINER MD Hysterectomy LIAT GARDINER MD Influenza Types A,B Direct FA (JAMILA) Dr. Alexy Douglas Work Phone: Influenza Types A,B Direct FA (JAMILA) Dr. Alexy Douglas Work Phone: Lumpectomy of right breast M ABHIJIT GARDINER MD Respiratory syncytia l virus antigen assay Dr. Alexy Douglas Work Phone: Respiratory syncytia l virus antigen assay Dr. Alexy Douglas Work Phone: Urine culture Dr. Alexy Douglas Work Phone: Viral antigen assay Dr. Alexy Douglas Work Phone: Plan of Treatment Date Care Activity Detail Author Start: 07-14-2024 Development of care plan [facility] Start: 07-14-2024 Patient discharge [facility] Start: 07-13-2024 Palliative care [facility] Start: 07-12-2024 Consultation for treatment [facility] Start: 07-12-2024 End: 07-12-2024 Wound care [facility] Start: 07-08-2024 [facility] Start: 07-07-2024 Developing a treatment plan [facility] Start: 07-07-2024 Development of care plan [facility] Start: 07-06-2024 Contact precautions [facility] Start: 07-06-2024 Following clinical pathway protocol [facility] Start: 07-06-2024 Admission procedure [facility] Start: 07-06-2024 Introduction of urinary catheter [facility] Start: 07-06-2024 Measuring intake and output [facility] Start: 07-06-2024 Oxygen therapy [facility] Start: 07-06-2024 Patient referral to dietitian [facility] Start: 07-06-2024 Referral to occupational therapist [facility] Start: 07-06-2024 Referral to service [facility] Start: 07-06-2024 Vital signs measurements [facility] Start: 07-06-2024 [facility] Start: 07-06-2024 Patient discharge [facility] Start: 07-05-2024 [facility] Start: 07-03-2024 Consultation for treatment [facility] Start: 07-02-2024 Consultation [facility] Start: 07-01-2024 Fluid restriction [facility] Start: 07-01-2024 [facility] Start: 07-01-2024 Referral to general surgeon [facility] Start: 07-01-2024 Care planning and problem solving actions [facility] Start: 06-30-2024 Following clinical pathway protocol [facility] Start: 06-30-2024 Application of elastic bandage [facility] Start: 06-30-2024 Assessment of risk of venous thromboembolism [facility] Start: 06-30-2024 Care regimes management [facility] Start: 06-30-2024 Elevation of affected extremity [facility] [facility] Start: 06-30-2024 Elevation of head of bed [facility] Start: 06-30-2024 Fall prevention [facility] Start: 06-30-2024 Inhalation therapy procedure [facility] Start: 06-30-2024 Insertion of catheter into peripheral vein [facility] Start: 06-30-2024 Introduction of urinary catheter [facility] Start: 06-30-2024 Measuring intake and output [facility] Start: 06-30-2024 Notification of physician [facility] Start: 06-30-2024 Oxygen therapy [facility] Start: 06-30-2024 Patient education [facility] Start: 06-30-2024 Patient referral to dietitian [facility] Start: 06-30-2024 Providing care according to standard [facility] Start: 06-30-2024 Provision of activity privileges [facility] Start: 06-30-2024 Referral to apartment locator [facility] Start: 06-30-2024 Referral to occupational therapist [facility] Start: 06-30-2024 Referral to service [facility] Start: 06-30-2024 Vital signs measurements [facility] Start: 06-30-2024 Wound care [facility] Start: 06-30-2024 End: 06-30-2024 [facility] Start: 06-30-2024 Bacterial nucleic acid assay [facility] Start: 06-30-2024 [facility] Start: 06-30-2024 Verification routine [facility] Start: 06-30-2024 Hospital admission, emergency, from emergency room, medical nature [facility] Start: 06-30-2024 Admission procedure [facility] Start: 06-30-2024 [facility] Start: 06-30-2024 End: 06-30-2024 [facility] Start: 06-29-2024 Patient discharge [facility] Start: 06-26-2024 Evaluation of diagnostic study results [facility] Start: 04-28-2024 Patient discharge [facility] Start: 04-28-2024 Referral to service [facility] Start: 04-26-2024 [facility] Start: 04-26-2024 Care planning and problem solving actions [facility] Start: 04-25-2024 End: 04-26-2024 [facility] Start: 04-25-2024 Following clinical pathway protocol [facility] Start: 04-25-2024 Application of elastic bandage [facility] Start: 04-25-2024 Aspiration precautions [facility] Start: 04-25-2024 Assessment of risk of venous thromboembolism [facility] Start: 04-25-2024 Care regimes management [facility] Start: 04-25-2024 Elevation of head of bed [facility] Start: 04-25-2024 Fall prevention [facility] Start: 04-25-2024 Insertion of catheter into peripheral vein [facility] Start: 04-25-2024 Introduction of urinary catheter [facility] Start: 04-25-2024 Measuring intake and output [facility] Start: 04-25-2024 Methicillin resistant Staphylococcus aureus screening test [facility] Start: 04-25-2024 Notification of physician [facility] Start: 04-25-2024 Oxygen therapy [facility] Start: 04-25-2024 Patient education [facility] Start: 04-25-2024 Providing care according to standard [facility] Start: 04-25-2024 Provision of activity privileges [facility] Start: 04-25-2024 Referral to occupational therapist [facility] Start: 04-25-2024 Referral to service [facility] Start: 04-25-2024 Admission procedure [facility] Start: 04-24-2024 Patient discharge [facility] Start: 04-24-2024 Vital signs measurements [facility] Start: 04-20-2024 Patient discharge [facility] Start: 04-20-2024 Vital signs measurements [facility] Start: 04-07-2024 Patient discharge [facility] Start: 04-06-2024 End: 04-06-2024 [facility] Start: 04-06-2024 Vital signs measurements [facility] Start: 04-05-2024 End: 04-05-2024 [facility] Start: 04-05-2024 Application of elastic bandage [facility] Start: 04-05-2024 Elevation of affected extremity [facility] Start: 04-05-2024 Notification of physician [facility] Start: 04-05-2024 End: 04-05-2024 Patient education [facility] Start: 04-05-2024 Oxygen therapy [facility] Start: 04-05-2024 Ambulation without limitation [facility] Start: 04-05-2024 Assessment of risk of venous thromboembolism [facility] Start: 04-05-2024 Insertion of catheter into peripheral vein [facility] Start: 04-05-2024 Measuring intake and output [facility] Start: 04-05-2024 Providing care according to standard [facility] Start: 04-05-2024 Referral to occupational therapist [facility] Start: 04-05-2024 Referral to service [facility] Start: 04-05-2024 Following clinical pathway protocol [facility] Start: 04-05-2024 Continuous pulse oximetry [facility] Start: 04-05-2024 Elevation of head of bed [facility] Start: 04-05-2024 Inhalation therapy procedure [facility] Start: 04-05-2024 Dual pressure spontaneous ventilation support [facility] Start: 04-05-2024 Admission procedure [facility] Start: 04-05-2024 Continuous positive airway pressure ventilation treatment [facility] Start: 03-18-2024 Patient discharge [facility] Start: 03-17-2024 [facility] Start: 03-17-2024 [facility] Start: 03-17-2024 Referral to occupational therapist [facility] Start: 03-17-2024 Referral to service [facility] Start: 03-16-2024 Assessment of risk of venous thromboembolism [facility] Start: 03-16-2024 Care regimes management [facility] Start: 03-16-2024 Elevation of affected extremity [facility] Start: 03-16-2024 Inhalation therapy procedure [facility] Start: 03-16-2024 Insertion of catheter into peripheral vein [facility] Start: 03-16-2024 Measuring intake and output [facility] Start: 03-16-2024 Notification of physician [facility] Start: 03-16-2024 Oxygen therapy [facility] Start: 03-16-2024 Patient education [facility] Start: 03-16-2024 Providing care according to standard [facility] Start: 03-16-2024 Provision of activity privileges [facility] Start: 03-16-2024 End: 03-16-2024 [facility] Start: 03-16-2024 Following clinical pathway protocol [facility] Start: 03-16-2024 Admission procedure [facility] Start: 03-16-2024 Continuous pulse oximetry [facility] Start: 03-16-2024 Dual pressure spontaneous ventilation support [facility] Start: 07-05-2023 Patient discharge [facility] Start: 07-05-2023 Vital signs measurements [facility] Start: 06-27-2023 Patient discharge [facility] Start: 06-27-2023 Vital signs measurements [facility] Start: 06-17-2023 Patient discharge [facility] Start: 06-17-2023 Vital signs measurements [facility] Start: 06-06-2023 Patient discharge [facility] Start: 06-06-2023 Vital signs measurements [facility] Start: 05-24-2023 Patient discharge [facility] Start: 05-24-2023 Vital signs measurements [facility] Start: 05-13-2023 Patient discharge [facility] Start: 05-13-2023 Vital signs measurements [facility] Start: 05-01-2023 Patient discharge [facility] Start: 05-01-2023 Vital signs measurements [facility] Start: 04-24-2023 Patient discharge [facility] Start: 04-24-2023 Vital signs measurements [facility] Start: 04-15-2023 Patient referral [facility] Work Phone: Start: 04-15-2023 Patient discharge [facility] Start: 04-15-2023 Vital signs measurements [facility] Start: 03-26-2023 Patient discharge [facility] Start: 03-26-2023 Vital signs measurements [facility] Start: 03-15-2023 Patient discharge [facility] Start: 03-15-2023 Vital signs measurements [facility] Start: 03-06-2023 Patient discharge [facility] Start: 03-06-2023 Vital signs measurements [facility] Start: 02-22-2023 Blood chemistry [facility] Start: 02-21-2023 Blood chemistry [facility] Start: 02-20-2023 Blood chemistry [facility] Start: 02-19-2023 Blood chemistry [facility] Start: 02-16-2023 Patient discharge [facility] Start: 02-16-2023 [facility] Start: 02-15-2023 Admission procedure [facility] Start: 02-15-2023 Anaerobic Culture Anaerobic Culture [facility] Start: 02-15-2023 Body Fluid Culture Body Fluid Culture [facility] Start: 02-15-2023 Microscopic observation [Identifier] in Unspecified specimen by Gram stain Gram Stain [facility] Start: 02-15-2023 Plain chest X-ray Chest Insp/Exp 2 View [facility] Start: 02-15-2023 Vital signs measurements [facility] Start: 02-15-2023 Vital signs measurements [facility] Start: 02-15-2023 End: 02-15-2023 [facility] Start: 02-14-2023 Following clinical pathway protocol [facility] Start: 02-14-2023 Ambulation without limitation [facility] Start: 02-14-2023 Assessment of risk of venous thromboembolism [facility] Start: 02-14-2023 Care regimes management [facility] Start: 02-14-2023 Consultation [facility] Start: 02-14-2023 Insertion of catheter into peripheral vein [facility] Start: 02-14-2023 Measuring intake and output [facility] Start: 02-14-2023 Notification of physician [facility] Start: 02-14-2023 Oxygen therapy [facility] Start: 02-14-2023 Providing care according to standard [facility] Start: 02-14-2023 Referral to occupational therapist [facility] Start: 02-14-2023 Referral to service [facility] Start: 02-14-2023 Vital signs measurements [facility] Start: 02-14-2023 [facility] Start: 02-14-2023 CT Chest and Abdomen and Pelvis WO contrast [facility] Start: 02-14-2023 CT of chest, abdomen and pelvis without contrast CT Chest, Abd, Pelvis Cont [facility] Start: 02-14-2023 Verification routine [facility] Start: 02-14-2023 Admission procedure [facility] Start: 02-14-2023 Hospital admission, emergency, from emergency room, medical nature [facility] Start: 02-14-2023 End: 02-14-2023 Blood culture [facility] Start: 02-14-2023 [facility] Start: 02-14-2023 Bacteria identified in Blood by Culture Blood Culture [facility] Start: 02-14-2023 Bacteria identified in Urine by Culture Urine Culture [facility] Start: 02-14-2023 Urine culture Urine Culture [facility] Start: 02-14-2023 Inhalation therapy procedure [facility] Start: 02-12-2023 Patient discharge [facility] Start: 02-12-2023 Vital signs measurements [facility] Start: 01-25-2023 Thoracentesis needle/cath pleura w/imaging [facility] Start: 01-25-2023 Patient discharge [facility] Start: 01-25-2023 Vital signs measurements [facility] Start: 11-26-2022 Coronavirus COVID-19 PCR Coronavirus COVID-19 PCR [facility] Start: 11-26-2022 Influenza A and B virus antigen assay [facility] Start: 11-26-2022 SARS-CoV-2 [facility] Start: 11-20-2021 Blood chemistry [facility] Work Phone: Start: 11-13-2021 Blood chemistry [facility] Work Phone: Start: 11-06-2021 Blood chemistry [facility] Work Phone: Start: 10-30-2021 Blood chemistry [facility] Work Phone: Start: 10-25-2021 Development of care plan [facility] Work Phone: Start: 10-25-2021 Patient discharge [facility] Work Phone: Start: 10-24-2021 [facility] Work Phone: Start: 10-22-2021 [facility] Work Phone: Start: 10-20-2021 Referral to service [facility] Work Phone: Start: 10-16-2021 Development of care plan [facility] Work Phone: Start: 10-16-2021 Developing a treatment plan [facility] Work Phone: Start: 10-15-2021 Scheduling [facility] Work Phone: Start: 10-15-2021 Oxygen therapy [facility] Work Phone: Start: 10-15-2021 Admission procedure [facility] Work Phone: Start: 10-15-2021 Measuring intake and output [facility] Work Phone: Start: 10-15-2021 Patient referral to dietitian [facility] Work Phone: Start: 10-15-2021 Referral to occupational therapist [facility] Work Phone: Start: 10-15-2021 Referral to service [facility] Work Phone: Start: 10-15-2021 Vital signs measurements [facility] Work Phone: Start: 10-15-2021 [facility] Work Phone: Start: 10-15-2021 Following clinical pathway protocol [facility] Work Phone: Start: 10-15-2021 Patient discharge [facility] Work Phone: Start: 10-15-2021 Provision of activity privileges [facility] Work Phone: Start: 10-14-2021 Incentive spirometry [facility] Work Phone: Start: 10-14-2021 Physiotherapy of chest [facility] Work Phone: Start: 10-14-2021 Inhalation therapy procedure [facility] Work Phone: Start: 10-12-2021 Care planning and problem solving actions [facility] Work Phone: Start: 10-12-2021 Following clinical pathway protocol [facility] Work Phone: Start: 10-12-2021 [facility] Work Phone: Start: 10-11-2021 Referral to apartment locator [facility] Work Phone: Start: 10-11-2021 Care planning and problem solving actions [facility] Work Phone: Start: 10-11-2021 Referral to occupational therapist [facility] Work Phone: Start: 10-11-2021 Referral to service [facility] Work Phone: Start: 10-11-2021 [facility] Work Phone: Start: 10-10-2021 Care planning and problem solving actions [facility] Work Phone: Start: 10-09-2021 Care planning and problem solving actions [facility] Work Phone: Start: 10-09-2021 Ambulation without limitation [facility] Work Phone: Start: 10-09-2021 Assessment of risk of venous thromboembolism [facility] Work Phone: Start: 10-09-2021 Care regimes management [facility] Work Phone: Start: 10-09-2021 Insertion of catheter into peripheral vein [facility] Work Phone: Start: 10-09-2021 Measuring intake and output [facility] Work Phone: Start: 10-09-2021 Oxygen therapy [facility] Work Phone: Start: 10-09-2021 Providing care according to standard [facility] Work Phone: Start: 10-09-2021 Referral to service [facility] Work Phone: Start: 10-09-2021 [facility] Work Phone: Start: 10-09-2021 Troponin I measurement [facility] Work Phone: Start: 10-09-2021 Following clinical pathway protocol [facility] Work Phone: Start: 10-09-2021 [facility] Work Phone: Start: 10-09-2021 Verification routine [facility] Work Phone: Start: 10-09-2021 Admission procedure [facility] Work Phone: Start: 10-09-2021 End: 10-09-2021 Blood culture [facility] Work Phone: Start: 10-09-2021 End: 10-10-2021 [facility] Work Phone: Start: 10-09-2021 [facility] Work Phone: Start: 07-15-2017 End: 07-15-2017 Appointment Appointment [facility] Work Phone: Start: 05-02-2017 End: 05-02-2017 Appointment Appointment [facility] Work Phone: Start: 01-30-2017 End: 01-30-2017 Appointment Appointment [facility] Work Phone: Start: 01-16-2017 End: 01-16-2017 [facility] Work Phone: Start: 01-16-2017 End: 01-16-2017 Follow Up Appt 6 months Follow Up Appt 6 months [facility] Work Phone: Start: 01-16-2017 End: 01-16-2017 Appointment Appointment [facility] Work Phone: Start: 12-31-2016 End: 01-03-2017 *BMP *BMP [facility] Work Phone: Start: 12-31-2016 End: 12-17-2016 *BMP *BMP [facility] Work Phone: Start: 12-17-2016 End: 12-17-2016 Appointment [facility] Work Phone: Start: 12-07-2016 End: 12-07-2016 Appointment Appointment [facility] Work Phone: Start: 12-07-2016 End: 12-14-2016 *MISC - Miscellaneous Lab Test #1 *MISC - Miscellaneous Lab Test #1 [facility] Work Phone: Start: 12-07-2016 End: 12-14-2016 [facility] Work Phone: Start: 12-07-2016 End: 12-14-2016 Follow Up Appt 2 months Follow Up Appt 2 months [facility] Work Phone: Start: 12-07-2016 End: 12-14-2016 Pulmonary Function Test - complete Pulmonary Function Test - complete [facility] Work Phone: Start: 12-07-2016 End: 12-14-2016 Pulmonary stress test/simple Pulmonary stress testing; simple (eg, 6-minute walk) [facility] Work Phone: Start: 12-07-2016 End: 12-14-2016 *MISC - Miscellaneous Lab Test #1 *MISC - Miscellaneous Lab Test #1 [facility] Work Phone: Start: 12-07-2016 End: 12-14-2016 [facility] Work Phone: Start: 12-07-2016 End: 12-14-2016 Follow Up Appt 2 months Follow Up Appt 2 months [facility] Work Phone: Start: 12-07-2016 End: 12-14-2016 Pulmonary Function Test - complete Pulmonary Function Test - complete [facility] Work Phone: Start: 12-07-2016 End: 12-14-2016 Pulmonary stress test/simple Pulmonary stress testing; simple (eg, 6-minute walk) [facility] Work Phone: Start: 10-18-2016 End: 10-18-2016 Appointment Appointment [facility] Work Phone: Start: 10-18-2016 End: 10-18-2016 Follow Up Appt 6 months Follow Up Appt 6 months [facility] Work Phone: Start: 10-18-2016 End: 10-18-2016 MMM MMM [facility] Work Phone: Start: 10-18-2016 End: 10-18-2016 Follow Up Appt 6 months Follow Up Appt 6 months [facility] Work Phone: Start: 10-18-2016 End: 10-18-2016 MMM MMM [facility] Work Phone: Start: 04-06-2016 End: 04-06-2016 [employer] [facility] Work [facility]: Start: 04-06-2016 End: 04-06-2016 Follow Up Appt 6 months Follow Up Appt 6 months [facility] Work Phone: Start: 04-06-2016 End: 04-06-2016 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 [facility] Work Phone: Start: 04-06-2016 End: [...] Phone: Start: 10-04-2015 End: 10-04-2015 MMM MMM [facility] Work Phone: Start: 10-04-2015 End: 10-04-2015 Electrocardiogram, complete EKG (In office) [facility] Work Phone: Start: 10-04-2015 End: 10-04-2015 Follow Up Appt 6 months Follow Up Appt 6 months [facility] Work Phone: Start: 10-04-2015 End: 10-04-2015 MMM MMM [facility] Work Phone: Start: 05-11-2015 End: 05-16-2015 *BMP *BMP [facility] Work Phone: Start: 05-11-2015 End: 05-16-2015 *BMP *BMP [facility] Work Phone: Start: 03-30-2015 End: 03-31-2015 Ambulatory BP Monitor 24 HR Ambulatory BP Monitor 24 HR [facility] Work Phone: Start: 03-30-2015 End: 03-30-2015 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 [facility] Work Phone: Start: 03-30-2015 End: 03-30-2015 Follow Up Appt 6 months Follow Up Appt 6 months [facility] Work Phone: Start: 03-30-2015 End: 03-30-2015 Follow Up BP Check Follow Up BP Check [facility] Work Phone: Start: 03-30-2015 End: 03-31-2015 Ambulatory BP Monitor 24 HR Ambulatory BP Monitor 24 HR [facility] Work Phone: Start: 03-30-2015 End: 03-30-2015 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 [facility] Work Phone: Start: 03-30-2015 End: 03-30-2015 Follow Up Appt 6 months Follow Up Appt 6 months [facility] Work Phone: Start: 03-30-2015 End: 03-30-2015 Follow Up BP Check Follow Up BP Check [facility] Work Phone: Start: 02-09-2015 End: 02-09-2015 Fungus culture *CUF - Culture, Fungus (Only) [id number] [facility] Work Phone: Start: 02-09-2015 End: 02-09-2015 Fungus culture *CUF - Culture, Fungus (Only) [id number] [facility] Work Phone: Start: 09-28-2014 End: 09-30-2014 *Hepatic Function Panel *Hepatic Function Panel [facility] Work Phone: Start: 09-28-2014 End: 09-28-2014 Follow Up Appt 6 months Follow Up Appt 6 months [facility] Work Phone: Start: 09-28-2014 End: 09-28-2014 MMM MMM [facility] Work Phone: Start: 09-28-2014 End: 09-30-2014 Thyroid stimulating hormone (TSH) *TSH [facility] Work Phone: Start: 09-28-2014 End: 09-30-2014 Thyroxine (T4) *T4 (Total) [facility] Work Phone: Start: 09-28-2014 End: [...] 09-28-2014 End: 09-30-2014 Thyroxine (T4) *T4 (Total) [facility] Work Phone: Start: 08-16-2014 End: 08-16-2014 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 [facility] Work Phone: Start: 08-16-2014 End: 08-16-2014 Follow Up Appt 6 weeks Follow Up Appt 6 weeks [facility] Work Phone: Start: 08-16-2014 End: 08-16-2014 Pulmonary Function Test - complete Pulmonary Function Test - complete [facility] Work Phone: Start: 08-16-2014 End: 08-16-2014 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 [facility] Work Phone: Start: 08-16-2014 End: 08-16-2014 Follow Up Appt 6 weeks Follow Up Appt 6 weeks [facility] Work Phone: Start: 08-16-2014 End: 08-16-2014 Pulmonary Function Test - complete Pulmonary Function Test - complete [facility] Work Phone: Start: 07-23-2014 End: 07-23-2014 Radiologic examination pelvis 1/2 views X-Ray, Pelvis [facility] Work Phone: Start: 07-23-2014 End: 07-23-2014 X-ray exam of hip X-Ray, Hip Unilateral [facility] Work Phone: Start: 07-23-2014 End: 07-23-2014 X-ray exam of hip X-Ray, Hip Unilateral [facility] Work Phone: Start: 07-23-2014 End: 07-23-2014 X-ray exam of pelvis X-Ray, Pelvis [facility] Work Phone: Start: 05-18-2014 End: 05-18-2014 *BMP *BMP [facility] Work Phone: Start: 05-18-2014 End: 05-18-2014 *Hepatic Function Panel *Hepatic Function Panel [facility] Work Phone: Start: 05-18-2014 End: 05-18-2014 CBC W Auto Differential panel - Blood *CBC without Diff [facility] Work Phone: Start: 05-18-2014 End: 08-10-2014 Chest x-ray X-Ray, Chest, PA & Lateral [facility] Work Phone: Start: 05-18-2014 End: 05-18-2014 Ecg routine ecg w/least 12 lds w/i&r EKG (In office) [facility] Work Phone: Start: 05-18-2014 End: 05-18-2014 Follow Up Appt 3 months Follow Up Appt 3 months [facility] Work Phone: Start: 05-18-2014 End: 05-18-2014 Left Heart Cath Left Heart Cath [facility] Work Phone: Start: 05-18-2014 End: 05-18-2014 MMM MMM [facility] Work Phone: Start: 05-18-2014 End: 05-18-2014 Thyroid stimulating hormone (TSH) *TSH [facility] Work Phone: Start: 05-18-2014 End: [...] Chest x-ray X-Ray, Chest, PA & Lateral [facility] Work Phone: Start: 05-18-2014 End: 05-18-2014 Electrocardiogram, complete EKG (In office) [facility] Work Phone: Start: 05-18-2014 End: 05-18-2014 Follow Up Appt 3 months Follow Up Appt 3 months [facility] Work Phone: Start: 05-18-2014 End: 05-18-2014 Left Heart Cath Left Heart Cath [facility] Work Phone: Start: 05-18-2014 End: 05-18-2014 MMM MMM [facility] Work Phone: Start: 05-18-2014 End: 05-18-2014 Thyroid stimulating hormone (TSH) *TSH [facility] Work Phone: Start: 05-18-2014 End: 05-18-2014 Thyroxine (T4) *T4 (Total) [facility] Work Phone: Start: 11-19-2013 End: 11-19-2013 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 [facility] Work Phone: Start: 11-19-2013 End: 11-19-2013 Follow Up Appt 6 months Follow Up Appt 6 months [facility] Work Phone: Start: 11-19-2013 End: 11-19-2013 Follow Up Appt Other Follow Up Appt Other [facility] Work Phone: Start: 11-19-2013 End: 11-19-2013 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 [facility] Work Phone: Start: 11-19-2013 End: 11-19-2013 Follow Up Appt 6 months Follow Up Appt 6 months [facility] Work Phone: Start: 11-19-2013 End: 11-19-2013 Follow Up Appt Other Follow Up Appt Other [facility] Work Phone: Start: 08-21-2013 End: 08-21-2013 Follow Up Appt 3 months Follow Up Appt 3 months [facility] Work Phone: Start: 08-21-2013 End: 08-21-2013 MMM MMM [facility] Work Phone: Start: 08-21-2013 End: 08-21-2013 Follow Up Appt 3 months Follow Up Appt 3 months [facility] Work Phone: Start: 08-21-2013 End: 08-21-2013 MMM MMM [facility] Work Phone: Start: 08-11-2013 End: 08-11-2013 Follow Up Appt Other Follow Up Appt Other [facility] Work Phone: Start: 08-11-2013 End: 08-11-2013 Follow Up Appt Other Follow Up Appt Other [facility] Work Phone: Start: 07-03-2013 End: 08-11-2013 Ecg routine ecg w/least 12 lds w/i&r EKG (In office) [facility] Work Phone: Start: 07-02-2013 End: 07-03-2013 *BMP *BMP [facility] Work Phone: Start: 07-02-2013 End: 07-03-2013 *CBC with Differential *CBC with Differential [facility] Work Phone: Start: 07-02-2013 End: 07-03-2013 BNP *Brain Natriuretic Peptide BNP [facility] Work Phone: Start: 07-02-2013 End: 07-02-2013 Cardioversion Cardioversion [facility] Work Phone: Start: 07-02-2013 End: 08-11-2013 Electrocardiogram, complete EKG (In office) [facility] Work Phone: Start: 07-02-2013 End: 08-11-2013 Follow Up Appt 2 months Follow Up Appt 2 months [facility] Work Phone: Start: 07-02-2013 End: 08-11-2013 MMM MMM [facility] Work Phone: Start: 07-02-2013 End: 07-03-2013 *BMP *BMP [facility] Work Phone: Start: 07-02-2013 End: 07-03-2013 *CBC with Differential *CBC with Differential [facility] Work Phone: Start: 07-02-2013 End: 07-03-2013 BNP *Brain Natriuretic Peptide BNP [facility] Work Phone: Start: 07-02-2013 End: 07-02-2013 Cardioversion Cardioversion [facility] Work Phone: Start: 07-02-2013 End: 07-02-2013 Electrocardiogram, complete EKG (In office) [facility] Work Phone: Start: 07-02-2013 End: 08-11-2013 Follow Up Appt 2 months Follow Up Appt 2 months [facility] Work Phone: Start: 07-02-2013 End: 08-11-2013 MMM MMM [facility] Work Phone: Start: 05-05-2013 End: 05-05-2013 Follow Up Appt 6 months Follow Up Appt 6 months [facility] Work Phone: Start: 05-05-2013 End: 05-05-2013 MMM MMM [facility] Work Phone: Start: 05-05-2013 End: 05-05-2013 Follow Up Appt 6 months Follow Up Appt 6 months [facility] Work Phone: Start: 05-05-2013 End: 05-05-2013 MMM MMM [facility] Work Phone: Start: 03-19-2013 End: 03-19-2013 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 Work Phone: Start: 05-26-2012 End: 07-03-2013 Urine culture, bacteria *C&S, Routine Bacteria [facility] Work Phone: Start: 05-26-2012 End: 07-03-2013 Urine culture, bacteria *C&S, Routine Bacteria [facility] Work Phone: Antibody to lupus La protein measurement [facility] Antibody to SS-A measurement [facility] Bacteria identified in Blood by Culture Blood Culture [facility] Work Phone: Bacteria identified in Body fluid by Culture [facility] Bacteria identified in Unspecified specimen by Anaerobe culture [facility] Bilirubin measuremen t, urine [facility] Work Phone: Blood chemistry [facility] Blood chemistry [facility] Blood culture [facility] Work Phone: Centromere protein B Ab [Units/volume] in Serum [facility] Chromatin Ab [Units/volume] in Serum or Plasma [facility] Cyclic citrullinated peptide IgG Ab [Units/volume] in Serum or Plasma [facility] Cytology report of B mike fluid Cyto stain [facility] DNA double strand Ab [Units/volume] in Serum [facility] Hemoglobin [Presence ] in Urine [facility] Work Phone: Phylicia-1 extractable nuc lear Ab [Units/volume] in Serum [facility] Measurement of keton es in urine using dipstick [facility] Work Phone: Microscopic urinalysis [facility] Work Phone: Neutrophil cytoplasm ic Ab.classic [Units/volume] in Serum [facility] Nuclear Ab [Presence ] in Serum [facility] P-ANCA measurement [facility] Patient Education [facility] Work Phone: Patient referral [facility] Work Phone: pH of Urine [facility] Work Phone: Polysomnography [facility] SCL-70 extractable n uclear Ab [Units/volume] in Serum by Immunoassay [facility] Garcia extractable nu clear Ab [Presence] in Serum [facility] Specific gravity of Urine [facility] Work Phone: Troponin I measurement [facility] Work Phone: Urinalysis, blood, qualitative [facility] Work Phone: Urine dipstick for glucose [facility] Work Phone: Urine dipstick for leukocyte esterase [facility] Work Phone: Urine dipstick for nitrite [facility] Work Phone: Urine dipstick for protein [facility] Work Phone: Urine examination [facility] Work Phone: Urine microscopy: epithelial cells [facility] Work Phone: Urine Microscopy: wh ite cells [facility] Work Phone: Urobilinogen [Presen ce] in Urine [facility] Work Phone: [place] [facility] Work Phone: [facility] Immunizations Immunization Date Immunization Notes Care Provider Fa [facility] 12-10-2023 influenza, injectabl e, quadrivalent, preservative free Dr. Alexy Douglas MD Work Phone: [facility] 12-18-2022 RSV Adult BiValent (Abrysvo) Dr. Alexy Douglas MD Work Phone: [facility] 12-18-2022 RSV vaccine, preF A- preF B, recombinant LIAT GARDINER MD [facility] 11-21-2022 influenza virus vacc ine, unspecified formulation LIAT GARDINER MD [facility] 11-21-2022 influenza, injectabl e, quadrivalent, preservative free Dr. Alexy Douglas MD Work Phone: [facility] 07-12-2021 Covid (Moderna) Dr. Alexy Douglas Work Phone: [facility] 01-11-2021 Covid (Moderna) Dr. Alexy Douglas Work Phone: [facility] 11-28-2020 influenza virus vacc ine, unspecified formulation LIAT GARDINER MD [facility] 11-28-2020 influenza, injectabl e, quadrivalent, preservative free Dr. Alexy Douglas Work Phone: [facility] 11-28-2020 influenza, seasonal, injectable Dr. Alexy Douglas Work Phone: [facility] 05-02-2020 Covid (Pfizer) Dr. Alexy Douglas Work Phone: [facility] Comment on above: Result Comment: 2023: [id number] 04-09-2020 Covid (Pfizer) Dr. Alexy Douglas Work Phone: [facility] Comment on above: Result Comment: 2023: [id number] 12-08-2019 influenza virus vacc ine, unspecified formulation LIAT GARDINER MD [facility] 12-08-2019 influenza, injectabl e, quadrivalent, preservative free Dr. Alexy Douglas Work Phone: [facility] 12-08-2019 influenza, seasonal, injectable Dr. Alexy Douglas Work Phone: [facility] 12-07-[address] Alexy Douglas Work Phone: [facility] 11-16-[address] Alexy Douglas Work Phone: [facility] 11-12-2018 influenza virus vacc ine, unspecified formulation LIAT GARDINER MD [facility] 11-12-2018 influenza, injectabl e, quadrivalent, preservative free Dr. Alexy Douglas Work Phone: [facility] 11-12-2018 influenza, seasonal, injectable Dr. Alexy Douglas Work Phone: [facility] 12-02-2017 influenza virus vacc ine, unspecified formulation LIAT GARDINER MD [facility] 12-02-2017 influenza, injectabl e, quadrivalent, preservative free Dr. Alexy Douglas Work Phone: [facility] 12-02-2017 influenza, seasonal, injectable Dr. Alexy Douglas Work Phone: [facility] 12-11-2016 influenza virus vacc ine, unspecified formulation LIAT GARDINER MD [facility] 12-11-2016 Influenza, high dose seasonal Dr. Alexy Douglas MD Work Phone: [facility] 12-11-2016 influenza, high dose seasonal, preservative-free Dr. Alexy Douglas Work Phone: [facility] 11-29-2015 influenza virus vacc ine, unspecified formulation LIAT GARDINER MD [facility] 11-29-2015 influenza, injectabl e, quadrivalent, preservative free Dr. Alexy Douglas Work Phone: [facility] 11-29-2015 influenza, seasonal, injectable Dr. Alexy Douglas Work Phone: [facility] 11-17-[address] Alexy Douglas Work Phone: [facility] 01-16-[address] Alexy Douglas Work Phone: [facility] Work Phone: 01-16-2013 pneumococcal vaccine , unspecified formulation Dr. Alexy Douglas Work Phone: [facility] 01-09-[address] Alexy Douglas Work Phone: [facility] 03-07-2009 novel influenza-H1N1 -09, preservative-free, injectable Dr. Alexy Douglas Work Phone: [facility] 12-10-2008 influenza, injectabl e, quadrivalent, preservative free Dr. Alexy Douglas Work Phone: [facility] 12-10-2008 influenza, seasonal, injectable Dr. Alexy Douglas Work Phone: [facility] 12-10-2008 pneumococcal conjuga te vaccine, [address] Alexy Douglas Work Phone: [facility] 02-12-2005 pneumococcal polysaccharide vaccine, [address] Alexy Douglas Work Phone: [facility] Payers Date Payer Category Payer Self-pay [id number] 2023 Private Health Insurance [id number] 2016 Private Health Insurance [facility] [id number] 2003 Medicare [id number] 1940 Unknown [id number] 2.16.8 40.1.414590.3.579.2.627 1940 Unknown [id number] 2.16.8 40.1.529848.3.579.2.627 Unknown [id number] 2.16.8 40.1.355996.3.579.2.462 Unknown [id number] 2.16.8 40.1.753652.3.579.2.462 Unknown [id number] 2.16.8 40.1.030288.3.579.2.462 Unknown [id number] 2.16.8 40.1.847469.3.579.2.462 Unknown [id number] 2.16.8 40.1.996889.3.579.2.462 Unknown [id number] 2.16.8 40.1.138445.3.579.2.462 Unknown [id number] 2.16.8 40.1.505703.3.579.2.462 Unknown [id number] 2.16.8 40.1.437789.3.579.2.462 Unknown [id number] 2.16.8 40.1.844040.3.579.2.462 Unknown [id number] 2.16.8 40.1.612905.3.579.2.462 Unknown [id number] 2.16.8 40.1.992767.3.579.2.462 Unknown [id number] 2.16.8 40.1.509328.3.579.2.462 Unknown [id number] 2.16.8 40.1.142296.3.579.2.462 Unknown [id number] 2.16.8 40.1.331873.3.579.2.462 Unknown [id number] 2.16.8 40.1.667542.3.579.2.462 Unknown [id number] 2.16.8 40.1.334307.3.579.2.462 Unknown [id number] 2.16.8 40.1.338629.3.579.2.462 Unknown [id number] 2.16.8 40.1.019752.3.579.2.462 Unknown [id number] 2.16.8 40.1.753177.3.579.2.462 Unknown [id number] 2.16.8 40.1.446887.3.579.2.462 Unknown [id number] 2.16.8 40.1.201726.3.579.2.462 Unknown [id number] 2.16.8 40.1.416033.3.579.2.462 Unknown [id number] 2.16.8 40.1.695459.3.579.2.462 Unknown [id number] 2.16.8 40.1.272356.3.579.2.462 Unknown [id number] 2.16.8 40.1.458319.3.579.2.462 Unknown [id number] 2.16.8 40.1.077420.3.579.2.462 Unknown [id number] 2.16.8 40.1.481590.3.579.2.462 Unknown [id number] 2.16.8 40.1.709723.3.579.2.462 Unknown [id number] 2.16.8 40.1.768923.3.579.2.462 Unknown [id number] 2.16.8 40.1.463650.3.579.2.462 Unknown [id number] 2.16.8 40.1.629970.3.579.2.462 Unknown [id number] 2.16.8 40.1.475466.3.579.2.462 Unknown [id number] 2.16.8 40.1.837199.3.579.2.462 Unknown [id number] 2.16.8 40.1.953686.3.579.2.462 Unknown [id number] 2.16.8 40.1.010172.3.579.2.462 Unknown [id number] 2.16.8 40.1.750347.3.579.2.462 Unknown [id number] 2.16.8 40.1.555779.3.579.2.462 Unknown [id number] 2.16.8 40.1.226791.3.579.2.462 Unknown [id number] 2.16.8 40.1.852137.3.579.2.462 Unknown [id number] 2.16.8 40.1.456754.3.579.2.462 Unknown [id number] 2.16.8 40.1.336013.3.579.2.462 Unknown [id number] 2.16.8 40.1.477993.3.579.2.462 Unknown [id number] 2.16.8 40.1.642750.3.579.2.462 Unknown [id number] 2.16.8 40.1.888015.3.579.2.462 Unknown [id number] 2.16.8 40.1.344549.3.579.2.462 Unknown [id number] 2.16.8 40.1.662340.3.579.2.462 Unknown [id number] 2.16.8 40.1.469877.3.579.2.462 Unknown [id number] 2.16.8 40.1.814543.3.579.2.462 Unknown [id number] 2.16.8 40.1.006000.3.579.2.462 Unknown [id number] 2.16.8 40.1.056589.3.579.2.462 Unknown [id number] 2.16.8 40.1.297252.3.579.2.462 Unknown [id number] 2.16.8 40.1.027698.3.579.2.462 Unknown [id number] 2.16.8 40.1.094833.3.579.2.462 Unknown [id number] 2.16.8 40.1.000449.3.579.2.462 Unknown [id number] 2.16.8 40.1.865346.3.579.2.462 Unknown [id number] 2.16.8 40.1.325663.3.579.2.462 Unknown [id number] 2.16.8 40.1.770423.3.579.2.462 Unknown [id number] 2.16.8 40.1.135059.3.579.2.462 Unknown [id number] 2.16.8 40.1.676021.3.579.2.462 Unknown [id number] 2.16.8 40.1.941109.3.579.2.462 Unknown [id number] 2.16.8 40.1.314146.3.579.2.462 Unknown [id number] 2.16.8 40.1.355008.3.579.2.462 Unknown [id number] 2.16.8 40.1.900496.3.579.2.462 Unknown [id number] 2.16.8 40.1.030948.3.579.2.462 Unknown [id number] 2.16.8 40.1.403225.3.579.2.462 Unknown [id number] 2.16.8 40.1.748829.3.579.2.462 Unknown [id number] 2.16.8 40.1.073957.3.579.2.462 Unknown [id number] 2.16.8 40.1.156842.3.579.2.462 Unknown [id number] 2.16.8 40.1.168100.3.579.2.462 Unknown [id number] 2.16.8 40.1.435338.3.579.2.462 Unknown [id number] 2.16.8 40.1.399698.3.579.2.462 Unknown [id number] 2.16.8 40.1.107844.3.579.2.462 Unknown [id number] 2.16.8 40.1.167911.3.579.2.462 Unknown [id number] 2.16.8 40.1.238698.3.579.2.462 Unknown [id number] 2.16.8 40.1.256549.3.579.2.462 Unknown [id number] 2.16.8 40.1.966018.3.579.2.462 Unknown [id number] 2.16.8 40.1.936098.3.579.2.462 Unknown [id number] 2.16.8 40.1.955745.3.579.2.462 Unknown [id number] 2.16.8 40.1.128222.3.579.2.462 Unknown [id number] 2.16.8 40.1.179843.3.579.2.462 Unknown [id number] 2.16.8 40.1.481977.3.579.2.462 Unknown [id number] 2.16.8 40.1.984579.3.579.2.462 Unknown [id number] 2.16.8 40.1.563821.3.579.2.462 Unknown [id number] 2.16.8 40.1.991609.3.579.2.462 Unknown [id number] 2.16.8 40.1.623099.3.579.2.462 Unknown [id number] 2.16.8 40.1.449061.3.579.2.462 Unknown [id number] 2.16.8 40.1.617761.3.579.2.462 Unknown [id number] 2.16.8 40.1.321859.3.579.2.462 Unknown [id number] 2.16.8 40.1.672116.3.579.2.462 Social History Date Type Detail Facility Start: 06-14-2021 End: 06-10-2023 Tobacco smoking status NHIS Unknown if ever smoked [facility] Start: 1940 Sex Assigned At Female [facility] Start: 07-03-2023 End: 07-06-2024 Tobacco smoking status Ex-smoker (finding) [facility] Comment on above: smoked 2 PPD, quit 1 990 Sex Assigned At Sex [facility] Start: 06-29-2024 End: 06-30-2024 Sex Female (finding) [facility] NEGATED: Highlighted row [facility] Goals Date Patient Goal Desired Activity /State Functional Status Date Assessment Result Facility 07-14-2024 Functional status Chair [facility] Work Phone: 07-13-2024 Functional status Well [facility] Work Phone: 07-06-2024 Functional status Ambulates [facility] Work Phone: 04-28-2024 Functional status Bedrest [facility] Work Phone: 04-07-2024 Functional status Chair [facility] Work Phone: 03-18-2024 Functional status Ambulates;Chair [facility] Work Phone: 07-19-2023 Functional Status Max A [facility] 07-19-2023 Functional Status Max A 13 [facility] 07-19-2023 Functional Status [facility] 07-19-2023 Functional Status [facility] 07-18-2023 Functional Status [facility] 07-18-2023 Functional Status [facility] 07-18-2023 Functional Status Up with assistance [facility] 07-17-2023 Functional Status [facility] 07-17-2023 Functional Status Evening Snack Percent 1 00 [facility] 07-17-2023 Functional Status [facility] 07-17-2023 Functional Status One assist [facility] 07-17-2023 Functional Status [facility] 07-17-2023 Functional Status [facility] 07-17-2023 Functional Status [facility] 07-17-2023 Functional Status [facility] 07-17-2023 Functional Status [facility] 07-16-2023 Functional Status [facility] 07-14-2023 Functional Status [facility] 07-13-2023 Functional Status 11 [facility] 07-12-2023 Functional Status Mod A [facility] 07-11-2023 Functional Status Multilevel home [facility] 07-10-2023 Functional Status Patient Identi fied Identification band [facility] 07-10-2023 Functional Status Maintained [facility] 07-03-2023 Functional Status Sensory Deficits None [facility] 02-16-2023 Functional status Chair [facility] Work Phone: 10-25-2021 Functional status Ambulates [facility] Work Phone: 10-24-2021 Functional status Tolerates Activity Fair [facility] Work Phone: 10-15-2021 Functional status Chair [facility] Work Phone: Mental Status Date Assessment Result Facility 07-14-2024 Cognitive function Voice/Name [facility] Work Phone: 07-07-2024 Cognitive function Appropriate [facility] Work Phone: 07-06-2024 Cognitive function Voice/Name [facility] Work Phone: 06-30-2024 Cognitive function Inappropriate;Disorien slime [facility] Work Phone: 04-28-2024 Cognitive function Voice/Name [facility] Work Phone: 04-20-2024 Cognitive function Awake;Alert;Appropriat e [facility] Work Phone: 04-07-2024 Cognitive function Voice/Name [facility] Work Phone: 03-18-2024 Cognitive function Voice/Name [facility] Work Phone: 07-19-2023 Mental Status Orientation Asse ssment Oriented x 4 [facility] 07-19-2023 Mental Status Oriented x 4 [facility] 07-19-2023 Mental Status [facility] 07-18-2023 Mental Status [facility] 07-05-2023 Cognitive function Level Of Cons ciousness Awake;Alert;Appropriate;Follow s Commands [facility] Work Phone: 06-27-2023 Cognitive function Level Of Cons ciousness Awake;Alert;Appropriate [facility] Work Phone: 06-17-2023 Cognitive function Level Of Cons ciousness Awake;Alert;Appropriate;Follow s Commands [facility] Work Phone: 06-06-2023 Cognitive function Alert;Appropr iate;Follows Commands [facility] Work Phone: 05-24-2023 Cognitive function Awake;Alert;A ppropriate;Follow s Commands [facility] Work Phone: 05-13-2023 Cognitive function Awake;Alert;A ppropriate;Follow s Commands [facility] Work Phone: 05-01-2023 Cognitive function Awake;Alert;Appropriat [facility] Work Phone: 04-24-2023 Cognitive function Awake;Alert;[facility] Work Phone: 04-15-2023 [facility]ake;[facility]: 03-26-2023 Cognitive function Awake;Alert;A ppropriate;Follow s Commands [facility] Work Phone: 03-15-2023 Cognitive function Awake;Alert;[facility] Work Phone: 03-06-2023 Cognitive function Awake;Alert;A ppropriate;Follow s Commands [facility] Work Phone: 02-16-2023 Cognitive function Demonstrates ability to follow instructions/comprehend [facility] Work Phone: 02-15-2023 Cognitive function Awake;Alert;A ppropriate;Follow s Commands [facility] Work Phone: 02-12-2023 Cognitive function Awake;Alert;A ppropriate;Follow s Commands [facility] Work Phone: 01-25-2023 [facility] function [facility]ake;Alert;[facility] Work [facility]: 10-25-2021 Cognitive function Voice/Name [facility] Work Phone: 10-15-2021 Cognitive function Voice/Name [facility] Work Phone: 10-09-2021 Cognitive function Level Of Cons ciousness Awake;Alert;Appropriate [facility] Work Phone: Clinical Notes 05-13-2022 to 06-30-2024 Note Date & Type Note Facility 06-30-2024 History and physical note Note Date/Time June 30, 2024 5:10pm [facility] Medical Records Department [address] [place] [address] H&P Exam - Hospitalist 06/30/24 1457 MR#: [id number] Acct: [id number] Name: TONJA SÁNCHEZ Rep #:[id number] : 1940 84 From: Liz Griffin MD PCP: Dr. Alexy Douglas MD Status:REG E R Location: ED HPI - General General Date of Admission: 06/30/24 Date of Service: 06/30/24 Chief Complaint: Confused, weak. HPI Narrative The patient is an 84 y/o F w/ PMHx: Obesity, PAF, COPD/Asthma with Chronic Hypoxic Respiratory Failure (4L NC), HTN, HLD, HFpEF, RLS, IDDM, Chronic anemia/Fe deficiency anemia, Rheumatoid arthritis, Valvular Heart Disease, CKD stage III unclear subtype per GFR trending, Former tobacco use, Hypothyroidism, Hx Breast CA unclear type who presents to the [facility] ED on 06/30/24 with history of weakness and altered mental status noted to have been onthe toilet when the squad arrived for unclear duration noted to be alert and oriented x 1-2 for them which is not normal for the patient prompting transitionto the ED for evaluation. Patient per discussion with family present last knownnormal for cardiac catheterization early in the morning the day prior on 06/29/2024 which she was having done in preparation for tricuspid valve potentialintervention with noted moderate pulmonary hypertension. Most recent evaluationby cardiology outpatient 06/26/24 with planned right heart cath which was noted above in preparation for evaluation by Dr. Quick at [facility] about having this special TTVR procedure. In the ED patient is encephalopathic with notable right lower extremity cellulitis and a small ulcerating room with no drainage with leg significantly warm to touch. Workup in the ED included T98.4, heart 150, BP 146/74, respiratory rate 34, 97% on 4 L nasal cannula with most noted previous to this on 04/28/2024 patient usage of 4 L nasal cannula, most recent repeat vitals T98.4, heart 141, BP 146/74, respiratory rate 25, 98% on 4 L, CBC with WBC 9.9, he 1 11.7, MCV 90.3, platelet 216 with left shift and lymphopenia,ABG with pH 7.50, pCO2 32 otherwise not marked appearing, BMP with BUN/creatinine 27/1.73, GFR 29, glucose 271, lactic acid 2.4, initial troponin 155, BNP 39131, procalcitonin 0.73, total creatinine kinase 66, urinalysis with specific gravity 1.20, protein 500, glucose 250, negative ketone, occult blood 25, negative nitrite, negative leukocyte esterase with no marked findings consistent with UTI, CT of the brain with questionable lacunar infarct in the head of the left caudate nucleus, chest x-ray with stable pleural-parenchymal changes in the left lung base with increased markings in the right lung base suggestive of atelectasis versus early infiltrate superimposed with mild degree of CHF, cardiomegaly, plain film of the right tibia and fibula with diffuse softtissue swelling with no bony abnormality, EKG with atrial fibrillation with RVR. In the ED patient ministered Unasyn 3 g IV x 1, Tylenol 1000 g p.o. x 1 and initially 500 ml normal saline. [facility] Medical History SOB (shortness of breath) (HFpEF) heart failure with preserved ejection fraction CHF (congestive heart failure) Chronic respiratory failure with hypoxia and hypercapnia Anticoagulated Asthma CHF exacerbation Congestive heart failure (CHF) IDDM (insulin dependent diabetes mellitus) Diabetes Rheumatoid arthritis On home oxygen therapy Low iron Insulin dependent diabetes mellitus Wears glasses Wears dentures Cancer History of steroid therapy History of renal disease High cholesterol Restless legs Injury of back Back pain Dietary restriction Shortness of breath on exertion History of pain when walking History of edema History of echocardiogram History of stress test Cardiology follow-up encounter History of CHF (congestive heart failure) History of atrial fibrillation Hyperlipidemia Overactive bladder Hypothyroidism Diabetes mellitus Hypertension Chronic kidney disease, stage 3b Former smoker Atrial fibrillation Hypertension Chronic anticoagulation Skin cancer, basal cell Actinic keratosis Skin lesion Skin cancer Chronic diastolic (congestive) heart failure Longstanding persistent atrial fibrillation Diastolic dysfunction Secondary pulmonary arterial hypertension Non-rheumatic tricuspid valve insufficiency Stage 2 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 Right hip pain Disc degeneration, lumbar Fatigue UTI (urinary tract infection) Hypoxia Hypersomnia COPD (chronic obstructive pulmonary disease) Obesity Tobacco dependence in remission CKD (chronic kidney disease) stage 3, GFR 30-59 ml/min Breast cancer Essential (primary) hypertension BMI 39.0-39.9,adult Erosion of bladder suspension mesh SHAKIRA (stress urinary incontinence, female) Home Medications ?Medication ?Instructions ?Recorded ?Last Taken ?Type apixaban 2.5 mg tablet (Eliquis) 2.5 mg PO BID blood t hinner 08/20/23 06/26/24 History sacubitril 49 mg-valsartan 51 mg 1 tab PO BID heart 04/24/24 History tablet (Entresto) rosuvastatin 40 mg tablet 40 mg PO QHS cholesterol 04/24/24 History insulin degludec 100 unit/mL (3 20 unit subcut BID shantal betes 12/26/23 06/28/24 History mL) subcutaneous pen (Tresiba FlexTouch U-100 insulin) cholecalciferol (vitamin D3) 25 25 mcg PO DAILY supple ment 01/20/24 04/24/24 History mcg (1,000 unit) capsule (Vitamin D3) glimepiride 1 mg tablet 1 mg PO DAILY hyperglycemia 03/16/24 06/28/24 History vibegron 75 mg tablet (Gemtesa) 75 mg PO DAILY follow up needed 04/01/24 04/24/24 History potassium chloride 20 mEq 20 meq PO DAILY hypokalemia 04/05/24 04/24/24 History tablet,extended release(part/cryst) acetaminophen 500 mg tablet 1,000 mg (2 x 500 mg) PO Q 8 PRN 04/07/24 Unknown Rx arthiritis pain #0 tabs furosemide 40 mg tablet 80 mg PO DAILY swelling 11/0904/24/24 History metoprolol tartrate 100 mg tablet 100 mg PO BID heart 04/25/24 06/29/24 History levothyroxine 200 mcg tablet 200 mcg PO DAILY thyroid 05/14/24 Unknown History levothyroxine 50 mcg tablet 50 mcg PO DAILY 05/14/24 U nknown History diltiazem HCl 240 mg 240 mg PO DAILY heart #90 ca ps 06/05/24 06/29/24 Rx capsule,extended release 24 hr albuterol sulfate 90 mcg/actuation 2 puff inhalation Q 4H PRN 06/30/24 Unknown History aerosol inhaler shortness of breath or wheez ing spironolactone 25 mg tablet 25 mg PO DAILY 06/30/24 Un known History Allergy/AdvReac Type Severity Reaction Status Date / Time Sulfa (Sulfonamide Allergy PEELING Verified 06/26/24 14:01 Antibiotics) RASH Family History Mother Colon cancer Cancer skin, bladder Daughter Cancer Thyroid Sister CAD (coronary artery disease) Surgical History History of surgery Hx of colonoscopy Hx of right cataract extraction Hx of left cataract extraction History of excision of lesion Hx of local excision of skin lesion History of cardioversion (03/20/19) History of hysterectomy History of partial mastectomy History of left heart catheterization (05/31/14) Social History household members: none housing: house current occupational status: retired Smoking Status: Former smoker how long ago did patient quit smokin, 2p/day second hand exposure: Yes alcohol intake: current alcohol intake frequency: holidays/special occasions only substance use type: does not use ROS Review of Systems ROS Unobtainable: due to encephalopathy Vital Signs Vital Signs Vital Signs: 06/30/24 12:27 06/30/24 12:45 06/30/24 12:45 Temperature 98.4 F 98.4 F Temperature Source Oral Oral Pulse Rate 150 H 141 H Respiratory Rate 34 H 25 H Respiratory Pattern Blood Pressure 146/74 H Blood Pressure Mean 98 Pulse Ox 97 98 97 Oxygen Delivery Method Nasal Cannula Nasal Cannula Nasal Cannula Oxygen Flow Rate (L/min) 4 4 2 06/30/24 12:45 06/30/24 12:49 Temperature 98.4 F Temperature Source Oral Pulse Rate 141 H Respiratory Rate 25 H Respiratory Pattern Tachypnea Blood Pressure 146/74 H Blood Pressure Mean 98 Pulse Ox 98 Oxygen Delivery Method Nasal Cannula Oxygen Flow Rate (L/min) 4 Weight Weight: 261 lb 11.019 oz Body Mass Index (BMI) 39.6 Physical Exam Narrative Physical Examination: General: Awakens to similar very lethargic, not alert, not oriented, following some commands, laying in the ED bed, fatigued, ill-appearing, mildly disheveled,ill-appearing. Skin: Normal color, normal turgor, no icterus, no cyanosis except occasional stage ecchymoses, abrasion, bilateral lower extremity venous stasis skin changesand significant right lower extremity anterior salzaar erythema, increased warmth to touch, small anterior dime sized ulcerating wound with no marked discharge atthis time. HEENT: AT/NC, EOMI, PERRLA, mildly dry MM, no carotid bruits or marked JVD noted; however, thickened neck makes evaluation difficult. Lungs: Diminished, greater bases, mildly increased respiratory rate but no distress, on chronic 4 L nasal cannula, no rales, ronchi or wheezing. Heart: Irregular irregular; no gallop, rub audible, + DM. Abdomen: Soft, obese, NTTP, ND, hyperactive BS, no appreciated HSM; however habitus makes evaluation difficult. Extremities: No cyanosis, no clubbing, pedal to proximal salazar 3+ chronic pittingedema, see skin. Neurological: Awakens to similar very lethargic, not alert, not oriented, following some commands, laying in the ED bed, fatigued, ill-appearing, mildly disheveled, ill-appearing, cognitive function not baseline intact; pupils equally reactive to light and accommodation, cranial nerves gross normal difficult valuation given encephalopathy, spontaneously moving all 4 extremities, no focal deficits, strength severely globally decreased. Psychiatric: Affect appears flat, fatigued, ill-appearing, no acute evidence of depressive or anxiety feelings. Results Lab / Micro Data 06/30/24 12:40 06/30/24 12:40 Labs: Laboratory Results - last 24 hr 06/30/24 12:40: WBC 9.9, RBC 4.04 L, Hgb 11.7 L, Hct 36.5 L, MCV 90.3, MCH 29.0,MCHC 32.1, RDW Std Deviation 50.9 H, RDW Coeff of Sudha 15.4 H, Plt Count 216, MPV10.8, Immature Gran % (Auto) 0.800, Neut % (Auto) 85.8 H, Lymph % (Auto) 4.6 L, Bath % (Auto) 8.2, Eos % (Auto) 0.0, Baso % (Auto) 0.6, Absolute Neuts (auto) 8.5 H, Absolute Lymphs (auto) 0.46 L, Nucleated RBC % 0, Platelet Estimate ADEQUATE, Polychromasia 1+, Anisocytosis 1+, Sodium 136, Potassium 4.6, Salvmnph42, Carbon Dioxide 21.6, Anion Gap 15, BUN 27 H, Creatinine 1.73 H, Estim Creat Clear Calc 32.21 L, Est GFR (MDRD) Non-Af 29 L, BUN/Creatinine Ratio 15.6, Glucose 271 H, Lactic Acid 2.4 H*, Calcium 9.2, Total Creatine Kinase 66, Troponin T High Sens 155 H*, [place] [address] H, Procalcitonin 0.73 H 06/30/24 12:58: Urine Color Yellow, Urine Clarity Clear, Urine pH 6.0, Ur Specific Franc[place] 1.020, Urine Protein 500 H, Urine Glucose (UA) 250 H, Urine Ketones Negative, Urine Occult Blood 25 H, Urine Nitrite Negative, Urine Bilirubin Negative, Urine Urobilinogen 1 H, Ur Leukocyte Esterase 25 H, Urine RBC 0 SEEN, Urine WBC 5-10 SEEN, Ur Squamous Epith Cells 0-5 SEEN, Urine Bacteria 0 SEEN, Hyaline Casts 0-5 SEEN, Fine Granular Casts 0-5 SEEN, Coarse Granular Casts 10-25 SEEN, Urine Mucus 0 SEEN Micro: Microbiology 06/30/24 12:52 Mucosa - Nose SARS-CoV-2, Influenza & RSV (PCR) - Final ABG Data ABG results: ABG 06/30/24 13:22 Specimen Type ART Sample Site L Brach pH 7.50 H Bicarbonate Actual 25.1 Total CO2 26 Base Excess 2 O2 Saturation 98 O2 % 4.0 ABG pCO2 32.0 L ABG pO2 98 O2 Delivery Device Cannula Vent Mode Not entered Imaging Radiology Impression Brain CT 06/30/24 12:40 IMPRESSION: CHRONIC CHANGES. Questionable lacunar infarct in the head of the left caudate nucleus. Reading Location: [facility] Chest X-Ray 06/30/24 13:33 IMPRESSION: Stable pleural-parenchymal changes at the left lung base with increased markingsat the right lung base suggestive of atelectasis and/or early infiltrate with superimposed mild degree of CHF. Cardiomegaly. Reading Location: [facility] Tibia/Fibula X-Ray 06/30/24 13:42 IMPRESSION: Diffuse soft tissue swelling. No bony abnormality is seen. Reading Location: [facility] Assessment & Plan Assessment/Plan (1) Acute on chronic diastolic (congestive) heart failure: (2) Atrial fibrillation with RVR: (3) Cellulitis of right lower leg: (4) Encephalopathy acute: (5) Sepsis: PLAN: Plan The patient is an 84 y/o F w/ PMHx: Obesity, PAF, COPD/Asthma with Chronic Hypoxic Respiratory Failure (4L NC), HTN, HLD, HFpEF, RLS, IDDM, Chronic anemia/Fe deficiency anemia, Rheumatoid arthritis, Valvular Heart Disease, CKD stage III unclear subtype per GFR trending, Former tobacco use, Hypothyroidism, Hx Breast CA unclear type who presents to the [facility] ED on 06/30/24 with history of weakness and altered mental status noted to have been onthe toilet when the squad arrived for unclear duration noted to be alert and oriented x 1-2 for them which is not normal for the patient prompting transitionto the ED for evaluation. #1. Acute Sepsis secondary to Acute encephalopathy secondary to right lower extremity cellulitis (2 SIRS, confirmed infection, mild lactic acidosis, significant encephalopathy): Will admit to the ICU given septic appearance, maintain on IV Unasyn with MRSA screen requested, will obtain Wound Cx, will obtain Wound MRSA PCR as able, plan repeat CBC in AM, continue affected extremity elevation above heart when seated and in bed, monitor erythema outlinewith VS checks, unclear if patient has been compliant with her NOAC, will obtainduplex of the RLE to be cautious. #2. Acute atrial fibrillation with RVR with indeterminate cardiac enzymes of unclear significance: EKG in ED w/ atrial fibrillation w/ RVR, initial troponin 155, repeat delta 137. Patient administered IV fluids only given #1 in ED. Will maintain on telemetry, obtain cardiac enzyme serial set, obtain magnesium level,obtain TSH level. Last ECHO in system 12/2023, will request repeat. Patient is normally on Eliquis regimen as well as diltiazem and metoprolol significant highdose, will need to monitor if ability for appropriate oral intake and if not we will need to transition to IV version, may need to consider drip possibly amiodarone which from record she has been on previously. If needed may considercardiology involvement. If unable to take oral will need to transition to alternate option for anticoagulation #3. Acute on chronic HFpEF exacerbation, decompensated complicated in large part by #4: Chest x-ray with some concern for overload, BNP notably elevated 13 980 however will avoid diuresis given significant presentation #1 and need for judicious fluids, once able may certainly consider diuresis but a lot of her distal extremity edema and anasarca is likely secondary to her underlying valvular heart disease. Will monitor weights, continue NOAC's as able otherwisemay need to transition to IV version temporarily versus subcu, continue once able patient's statin, spironolactone, metoprolol, Lasix, Entresto home regimen. #4. Valvular heart disease: Patient with notable underlying disease with planned upcoming replacement, recent cardiac catheterization with noted moderate pulmonary hypertension in preparation. Most recent documented echocardiogram 12/26/2023 echocardiogram with LVEF 65%, mild global RV systolic dysfunction, severe biatrial dilatation, moderate mitral annular calcification, aortic sclerosis with no stenosis, severe 4+ tricuspid valve insufficiency, severe pulmonary hypertension with PASP [address] Ynes Trinidad for possible future special TTVR procedure. #4. Chronic COPD/asthma with chronic hypoxic respiratory failure: Complicates presentation as noted #1, #2, #3, #4, will maintain on home oxygen supplementation, maintain on ATC budesonide therapy, PRN albuterol, HOB, IS parameters. #5. Chronic anemia/iron deficiency anemia: Admission hemoglobin 11.7, MCV 90.3,baseline hemoglobin has vacillated but primarily 9-10 range, continue iron supplementation, continue CBC trending. #6. Chronic Kidney Disease Stage III, unclear subtype per GFR trending: Admission BUN/Cr 27/1.73, GFR 29, baseline renal function 1.4-1.7, repeat BMP Derik. #7. Hypertension: Patient is encephalopathic but if clinically improves and able we will attempt to continue metoprolol, Entresto, Cardizem and Lasix with pulse dose IV however BP has been precarious thus we will continue to follow andadjust as needed, may require transition to IV agents only if unable to appropriately take oral. PRN hydralazine. #8. Hyperlipidemia: Patient is encephalopathic but if clinically improves and able to take oral will maintain on statin therapy. FLP in AM. #9. Diabetes mellitus type II: Hold oral home regimen, continue home insulin regimen with one half dosing as needed given n.p.o. status or hold if hypoglycemic concerns arise, if bedside swallow passed will allow ADA diet but currently encephalopathic with concern for oral intake safety, maintain on accu checks w/ ISS. #10. History of breast cancer unclear type: Unclear specific breast cancer type/location status post partial mastectomy, reportedly in remission, encouragecontinued follow-up outpatient as previously arranged. #11. Obesity: Weight loss and lifestyle changes encouraged. #12. GERD: Maintained on IV PPI until assure oral intake is safe. #13. Rheumatoid arthritis: Per current list does not appear to be on chronic regimen, encourage continued outpatient follow-up with rheumatology as previously arranged. #14. Hypothyroidism: Currently patient encephalopathic, awaiting assessment forpossible oral intake safety and if appropriate will continue oral levothyroxine regimen. May need to temporarily hold. #15. Former tobacco use: Encourage continued tobacco cessation. #16. DVT prophylaxis: Continue home Eliquis regimen as noted however if necessary may need to transition to subcu versus IV regimen in the interim. #17. CODE status: Patient MIGDALIA is her daughter. Family present at bedside, discussed CODE status at length including difference between FULL code, DNR-CCA and DNR-CC status. Following discussions about the differences in these status, confirmed continued plan for full CODE STATUS. Advanced Care Planning Face to Face Time: 16 minutes. Charges/Coding Visit Charges Inpatient E&M: 22367 Init Hosp L3 Procedures Hospitalists Procedures: 10154 Advncd Care Plan 30 Min 06/30/24 1708 <Electronically signed by Liz Griffin MD> Cosigner Signature (if applicable): CC: Dr. Liz Griffin MD; Dr. Alexy Douglas MD~ Signed ADDENDUM by Dr. Liz Griffin MD on 06/30/24 at 1710 Sepsis Attestation Sepsis Attestation: Agree w/Sepsis Date exam was performed: 06/30/24 Time exam was performed: 17:10 Possible Source of Sepsis: Skin/soft tissue Sepsis Organ Dysfunction Criteria Present: Lactic Acid > 2 mmol/L and New/Unexplained change in mental status Fluid Resuscitation Fluid resuscitation indicated?: Yes Fluid Resuscitation ordered: Lesser volume fluid bolus ordered Amount of fluid ordered: 1,000 Reason for lesser fluid bolus:: Concern for fluid overload and Heart failure Sepsis Note Date exam was performed: 06/30/24 Time exam was performed: 17:10 Sepsis Attestation: Sepsis re-evaluation was performed Response to fluids: Fluid responsive hypotension 06/30/24 1710<Electronically signed by Liz Griffin MD> Cosigner Signature (if applicable): cc: Dr. Liz Griffin MD; Dr. Alexy Douglas MD ~* Signed [facility] Work Phone: [phone] Discharge summary Author Tres Cronin [facility] Note Date/Time June 30, 2024 4:3 4pm [facility] Medical Records Department [address] [place] [address] Emergency Department Summary 06/30/24 MR#: [id number] Acct: [id number] Name: TONJA SÁNCHEZ Rep #:[id number] 1 : 1940 84 From: Tres Cronin MD PCP: Dr. Alexy Douglas MD Status:REG E R Location: ED HPI <WILDER Mishra - Last Filed: 06/30/24 15:15> History of Present Illness Chief Complaint: Weakness Narrative Narrative: Patient is an 84-year-old female with a long history of pulmonary, cardiovascular disease. Patient's history of COPD, atrial fibrillation on Eliquis, presented to the emerged part for weakness, altered mental status. Thepatient was on the toilet when the squad arrived. There is on known how long the patient was on the toilet. Patient is alert and orient x 1-2. This is not normal for the patient. The patient secondary to altered mental status is unable to say what hurts or what the reason for coming to the Emergency Department is. Patient brought in by EMS [facility] <WILDER Mishra - Last Filed: 06/30/24 15:15> [facility] Medical History SOB (shortness of breath) (HFpEF) heart failure with preserved ejection fraction CHF (congestive heart failure) Chronic respiratory failure with hypoxia and hypercapnia Anticoagulated Asthma CHF exacerbation Congestive heart failure (CHF) IDDM (insulin dependent diabetes mellitus) Diabetes Rheumatoid arthritis On home oxygen therapy Low iron Insulin dependent diabetes mellitus Wears glasses Wears dentures Cancer History of steroid therapy History of renal disease High cholesterol Restless legs Injury of back Back pain Dietary restriction Shortness of breath on exertion History of pain when walking History of edema History of echocardiogram History of stress test Cardiology follow-up encounter History of CHF (congestive heart failure) History of atrial fibrillation Hyperlipidemia Overactive bladder Hypothyroidism Diabetes mellitus Hypertension Chronic kidney disease, stage 3b Former smoker Atrial fibrillation Hypertension Chronic anticoagulation Skin cancer, basal cell Actinic keratosis Skin lesion Skin cancer Chronic diastolic (congestive) heart failure Longstanding persistent atrial fibrillation Diastolic dysfunction Secondary pulmonary arterial hypertension Non-rheumatic tricuspid valve insufficiency Stage 2 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 Right hip pain Disc degeneration, lumbar Fatigue UTI (urinary tract infection) Hypoxia Hypersomnia COPD (chronic obstructive pulmonary disease) Obesity Tobacco dependence in remission CKD (chronic kidney disease) stage 3, GFR 30-59 ml/min Breast cancer Essential (primary) hypertension BMI 39.0-39.9,adult Erosion of bladder suspension mesh SHAKIRA (stress urinary incontinence, female) Home Medications ?Medication ?Instructions ?Recorded ?Last Taken ?Type apixaban 2.5 mg tablet (Eliquis) 2.5 mg PO BID blood t hinner 08/20/23 06/26/24 History sacubitril 49 mg-valsartan 51 mg 1 tab PO BID heart 04/24/24 History tablet (Entresto) rosuvastatin 40 mg tablet 40 mg PO QHS cholesterol 04/24/24 History insulin degludec 100 unit/mL (3 20 unit subcut BID shantal betes 12/26/23 06/28/24 H istory mL) subcutaneous pen (Tresiba FlexTouch U-100 insulin) cholecalciferol (vitamin D3) 25 25 mcg PO DAILY supple ment 01/20/24 04/24/24 History mcg (1,000 unit) capsule (Vitamin D3) glimepiride 1 mg tablet 1 mg PO DAILY hyperglycemia 03/16/24 06/28/24 History vibegron 75 mg tablet (Gemtesa) 75 mg PO DAILY follow up needed 04/01/24 04/24/24 History potassium chloride 20 mEq 20 meq PO DAILY hypokalemia 04/05/24 04/24/24 History tablet,extended release(part/cryst) acetaminophen 500 mg tablet 1,000 mg (2 x 500 mg) PO Q 8 PRN 04/07/24 Unknown Rx arthiritis pain #0 tabs furosemide 40 mg tablet 80 mg PO DAILY swelling 11/0904/24/24 History metoprolol tartrate 100 mg tablet 100 mg PO BID heart 04/25/24 06/29/24 History levothyroxine 200 mcg tablet 200 mcg PO DAILY thyroid 05/14/24 Unknown History levothyroxine 50 mcg tablet 50 mcg PO DAILY 05/14/24 U nknown History diltiazem HCl 240 mg 240 mg PO DAILY heart #90 ca ps 06/05/24 06/29/24 Rx capsule,extended release 24 hr albuterol sulfate 90 mcg/actuation 2 puff inhalation Q 4H PRN 06/30/24 Unknown History aerosol inhaler shortness of breath or wheez ing spironolactone 25 mg tablet 25 mg PO DAILY 06/30/24 Un known History Allergy/AdvReac Type Severity Reaction Status Date / Time Sulfa (Sulfonamide Allergy PEELING Verified 06/26/24 14:01 Antibiotics) RASH Family History (Reviewed 06/26/24 @ 14:01 by Lovely Linda REGULATORY AFFAIRS ASSISTANT, REGULATORY AFFAIRS ASSISTANT-C) Mother Colon cancer Cancer skin, bladder Daughter Cancer Thyroid Sister CAD (coronary artery disease) Surgical History History of surgery Hx of colonoscopy Hx of right cataract extraction Hx of left cataract extraction History of excision of lesion Hx of local excision of skin lesion History of cardioversion (03/20/19) History of hysterectomy History of partial mastectomy History of left heart catheterization (05/31/14) Social History household members: none housing: house current occupational status: retired Smoking Status: Former smoker how long ago did patient quit smokin, 2p/day second hand exposure: Yes alcohol intake: current alcohol intake frequency: holidays/special occasions only substance use type: does not use ROS <WILDER Mishra - Last Filed: 06/30/24 15:15> ROS ED ROS Narrative Constitutional: Negative for fever, chills, weight loss, weakness Eyes: Negative for vision loss, vision change, double vision ENT: Negative for any sore throat, ear pain, congestion Cardiovascular: Negative for any tightness, palpitations. Positive for chest pain Respiratory: Negative for any cough, sputum production, hemoptysis, dyspnea, dyspnea on exertion, orthopnea Gastrointestinal: Negative for any abdominal pain, nausea, vomiting, diarrhea, constipation, blood in stool, blood in vomit : Negative for any urinary frequency, dysuria, retention, blood in urine Muscle skeletal: Negative for any neck pain, back pain. Positive for leg pain Neurological: Negative for any headache, syncope, dizziness Skin: Negative for any rashes, itching, abrasions, lacerations Psychiatric: Negative for any depression, anxiety, stress, suicidal ideation, homicidal ideation Hematologic: Negative for any excessive bruising, easy bleeding EXAM <WILDER Mishra - Last Filed: 06/30/24 15:15> Physical Exam Narrative Exam Narrative: Vital signs reviewed. On initial evaluation, the patient is tachycardic, altered, alert and oriented x1-2. Patient is unable to tell the year, she states that her legs hurt. HEET: Head normocephalic atraumatic, TMs clear bilaterally. Posterior pharynx is clear, dry mucous membranes. Nares clear bilaterally. Neck: Supple with no lymphadenopathy or tenderness. No signs of meningismus. Cardiac: Tachycardic rate no murmurs gallops or rubs, equal peripheral pulses bilaterally. Respiratory: Diminished lung sounds to bilateral bases. No chest tenderness. Abdomen: Soft, nontender. Patient's abdomen does show some fluid overload, pitting edema. No abdominal bruit or pulsatile masses. No hepatosplenomegaly Extremities: +4 pitting edema to bilateral lower extremities. On the right leg,there is an open wound with significant cellulitis to the right mid tibial area. The cellulitis goes from the ankle all the way up to the knee. Neuro: Cranial nerves II through XII intact, no focal neurological deficits. Skin: Clean dry and intact with no rash, purpura, petechiae, vesicles or pustules. Backs/flank: No CVA tenderness, no midline spinal tenderness, no deformity. Psych: Normal mood and affect. No SI, HI or acute psychosis. Const Vital Signs: 06/30/24 12:27 06/30/24 12:45 06/30/24 12:45 Temperature 98.4 F 98.4 F Temperature Source Oral Oral Pulse Rate 150 H 141 H Respiratory Rate 34 H 25 H Respiratory Pattern Blood Pressure 146/74 H Blood Pressure Mean 98 Pulse Ox 97 98 97 Oxygen Delivery Method Nasal Cannula Nasal Cannula Nasal Cannula Oxygen Flow Rate (L/min) 4 4 2 06/30/24 12:45 06/30/24 12:49 06/30/24 15:07 Temperature 98.4 F 98.8 F Temperature Source Oral Oral Pulse Rate 141 H 144 H Respiratory Rate 25 H 36 H Respiratory Pattern Tachypnea Blood Pressure 146/74 H 113/99 H Blood Pressure Mean 98 103 Pulse Ox 98 95 Oxygen Delivery Method Nasal Cannula Oxygen Flow Rate (L/min) 4 06/30/24 15:59 Temperature 98.8 F Temperature Source Pulse Rate 135 H Respiratory Rate 28 H Respiratory Pattern Blood Pressure 130/71 H Blood Pressure Mean 90 Pulse Ox 98 Oxygen Delivery Method Oxygen Flow Rate (L/min) Positive obese Nutritional Appearance: obese <Dr. Tres Cronin MD - Last Filed: 06/30/24 16:34> Physical Exam Const Vital Signs: 06/30/24 12:27 06/30/24 12:45 06/30/24 12:45 Temperature 98.4 F 98.4 F Temperature Source Oral Oral Pulse Rate 150 H 141 H Respiratory Rate 34 H 25 H Respiratory Pattern Blood Pressure 146/74 H Blood Pressure Mean 98 Pulse Ox 97 98 97 Oxygen Delivery Method Nasal Cannula Nasal Cannula Nasal Cannula Oxygen Flow Rate (L/min) 4 4 2 06/30/24 12:45 06/30/24 12:49 06/30/24 15:07 Temperature 98.4 F 98.8 F Temperature Source Oral Oral Pulse Rate 141 H 144 H Respiratory Rate 25 H 36 H Respiratory Pattern Tachypnea Blood Pressure 146/74 H 113/99 H Blood Pressure Mean 98 103 Pulse Ox 98 95 Oxygen Delivery Method Nasal Cannula Oxygen Flow Rate (L/min) 4 06/30/24 15:59 Temperature 98.8 F Temperature Source Pulse Rate 135 H Respiratory Rate 28 H Respiratory Pattern Blood Pressure 130/71 H Blood Pressure Mean 90 Pulse Ox 98 Oxygen Delivery Method Oxygen Flow Rate (L/min) Sepsis Attestation <Dr. Tres Cronin MD - Last Filed: 06/30/24 16:34> Sepsis Alert: Yes Sepsis Attestation: Agree w/Sepsis Date exam was performed: 06/30/24 Time exam was performed: 14:00 Possible Source of Sepsis: Skin/soft tissue and Wound Sepsis Organ Dysfunction Criteria Present: Lactic Acid > 2 mmol/L and New/Unexplained change in mental status Fluid Resuscitation Fluid resuscitation indicated?: Yes Fluid Resuscitation ordered: Lesser volume fluid bolus ordered Amount of fluid ordered: 500 Reason for lesser fluid bolus:: Concern for fluid overload and Heart failure IRAJ <WILDER Mishra - Last Filed: 06/30/24 15:15> IRAJ Lab Data Labs: Laboratory Results - last 24 hr 06/30/24 06/30/24 06/30/24 12:40 12:58 15:00 WBC 9.9 RBC 4.04 L Hgb 11.7 L Hct 36.5 L MCV 90.3 MCH 29.0 MCHC 32.1 RDW Std Deviation 50.9 H RDW Coeff of Sudha 15.4 H Plt Count 216 MPV 10.8 Immature Gran % (Auto) 0.800 Neut % (Auto) 85.8 H Lymph % (Auto) 4.6 L Bath % (Auto) 8.2 Eos % (Auto) 0.0 Baso % (Auto) 0.6 Absolute Neuts (auto) 8.5 H Absolute Lymphs (auto) 0.46 L Nucleated RBC % 0 Platelet Estimate ADEQUATE Polychromasia 1+ Anisocytosis 1+ Sodium 136 Potassium 4.6 Chloride 99 Carbon Dioxide 21.6 Anion Gap 15 BUN 27 H Creatinine 1.73 H Estim Creat Clear Calc 32.21 L Est GFR (MDRD) Non-Af 29 L BUN/Creatinine Ratio 15.6 Glucose 271 H Lactic Acid 2.4 H* Calcium 9.2 Total Creatine Kinase 66 Troponin T High Sens 155 H* Troponin T Hi Sens 2 Hr 137 H* [place] [address] H Procalcitonin 0.73 H Urine Color Yellow Urine Clarity Clear Urine pH 6.0 Ur Specific Franc[place] 1.020 Urine Protein 500 H Urine Glucose (UA) 250 H Urine Ketones Negative Urine Occult Blood 25 H Urine Nitrite Negative Urine Bilirubin Negative Urine Urobilinogen 1 H Ur Leukocyte Esterase 25 H Urine RBC 0 SEEN Urine WBC 5-10 SEEN Ur Squamous Epith Cells 0-5 SEEN Urine Bacteria 0 SEEN Hyaline Casts 0-5 SEEN Fine Granular Casts 0-5 SEEN Coarse Granular Casts 10-25 SEEN Urine Mucus 0 SEEN ABG Data ABG results: ABG 06/30/24 13:22 Specimen Type ART Sample Site L Brach pH 7.50 H Bicarbonate Actual 25.1 Total CO2 26 Base Excess 2 O2 Saturation 98 O2 % 4.0 ABG pCO2 32.0 L ABG pO2 98 O2 Delivery Device Cannula Vent Mode Not entered Radiography Diagnostic Testing: Clinical Impression(s) from Imaging Studies Brain CT 06/30/24 12:40 IMPRESSION: CHRONIC CHANGES. Questionable lacunar infarct in the head of the left caudate nucleus. Reading Location: [facility]1 Chest X-Ray 06/30/24 13:33 IMPRESSION: Stable pleural-parenchymal changes at the left lung base with increased markingsat the right lung base suggestive of atelectasis and/or early infiltrate with superimposed mild degree of CHF. Cardiomegaly. Reading Location: [facility] Tibia/Fibula X-Ray 06/30/24 13:42 IMPRESSION: Diffuse soft tissue swelling. No bony abnormality is seen. Reading Location: [facility] EKG EKG shows atrial fibrillation with RVR: Attestation: I personally reviewed and interpreted this EKG as follows: Interpretation: Atrial Fibrillation Comments: Atrial fibrillation with rapid ventricular response, rate 140 bpm, QRS duration 130 ms, no acute ST elevation, no acute infarct noted. Treatment and Re-Evaluation :: Differential diagnosis includes however is not limited to: Sepsis, right leg cellulitis, anasarca, fluid overload, UTI, A-fib with RVR, respiratory failure, rhabdomyolysis, electrolyte abnormality Patient on my initial evaluation did appear ill-appearing. Patient does have tachycardia, altered mental status, obvious sign infection of the right lower extremity. Patient will receive a full septic workup including 2 sets of blood cultures, lactic acid, procalcitonin. Patient was complaining of chest pain, patient will receive troponins as well as other laboratory values. CK total will also be ordered. Patient received a CT scan of the brain as well as a chest x-ray. Patient is anticoagulated from her previous list on Eliquis. Patient will need to be admitted to the hospital. On reevaluation, patient is still alert and orient x 2. Patient heart rate in the 130s. Patient CT scan of the brain showed no acute process, there is a questionable lacunar infarct in the head of the left conduit nucleus. Patient'schest x-ray showed stable pleural parenchymal changes in the left lung base withincreased markings at the right lung base suggestive of atelectasis and/or earlyinfiltrate with superimposed mild degree of CHF. Patient has history of this. Patient's x-ray of the right tibia-fibula shows no free gas. Patient's laboratory values shows stable anemia 11.7, patient's chemistry shows stable chronic renal sufficiency with a creatinine of 1.7, patient glucose 221 lactic acid elevated 2.4 troponin was 155, this could be secondary to demand. proBNP is 1 13,980, procalcitonin was elevated. IV Unasyn, vancomycin was ordered. COVID-19 flu and RSV was negative. Patient remains 98% 4 L. Patient was given 500 cc of normal saline, patient not receive the 30 mL/kg secondary to the patient's history of CHF as well as the chest x-ray showing some CHF fluid overload. Patient will need to be admitted to the hospital. I will reach out to the hospitalist <Dr. Tres Cronin MD - Last Filed: 06/30/24 16:34> [facility] MDM Narrative Medical decision making narrative: I have personally performed a face to face assessment of the patient and have reviewed the CRISTOPHER Note. I performed a substantive portion of the visit including all aspects of the following. My flores findings include: History is confused/altered, found sitting on toilet too weak to get up, last seen normal yesterday afternoon by same friend. History is limited from the patient due to confusion/altered LOC, but she states that her left leg hurts, which ended up actually being her right leg. She denies headache, chest pain right now, abdominal pain but states she had some dry heaving earlier this morning. Exam is lethargic easily awakens to voice, can follow commands, confused but otherwise speech is normal, GCS 13. Tachycardic and irregular, lungs fairly clear and in no respiratory distress, but a little tachypneic. Abdomen obese soft nontender. Legs: There appears to be some chronic stasis dermatitis, however the right leg is significantly more erythematous and tender whereas the left leg is nontender. There is a small ulcerative wound anterior mid right salazar, around which all of this tenderness, swelling, erythema is centered and itis all very tender. There is no subcutaneous emphysema. There is no lymphangitis. There is no discharge expressible from the ulcerative wound or clinical evidence of an abscess. Medical Decison Making this patient appears to be septic, I agree with obtaininga septic workup, including a CT of the head, chest x-ray given history of diastolic heart failure and severe tricuspid regurgitation seen on her prior echo last year, and empiric antibiotics for what appears to be right lower leg cellulitis presumably related to this shallow open wound. Given her apparent anasarca, tachycardia, tachypnea, with stable blood pressure, we elected to holdoff on IV fluids until we had more information/testing on her cardiopulmonary status. Patient does have mild congestion on 1 view chest x-ray my interpretation as confirmed by radiology, but she does not sound wet. She is very tachycardic, her lactate is elevated, 2 view x-ray series of the right lower leg shows no subcutaneous air on my interpretation, therefore this is inconsistent with necrotizing fasciitis, the erythema is no different on my reevaluation, and I reviewed the head CT images and I agree with the results, negative for any acute. Will treat for sepsis with Unasyn according to protocol, there was a wound culture in November 2023 that showed some MRSA among other bacteria, so we will add vancomycin to that. Will give her some IV fluids to help her heart rate but only 500 cc due to elevated BNP which may or may not be related to her chronic renal sufficiency, and mildly wet appearing chest x-ray. Will admit to ICU given her mental status/level of consciousness. Considered putting her on aCardizem drip, but if her heart rate is high due to sepsis, do not want to suppress her compensatory mechanism, so we held off on rate control for now. Additionally, she does not appear to have respiratory distress although she is alittle tachypneic, and her lungs sound clear, and she is on 4 L of oxygen at baseline and currently on that amount of oxygen is not hypoxic. For these reasons are not treating her as a primary congestive heart failure issue becauseI feel she is more likely to be septic and I do not want to make her worse by overloading her with fluids or by diuresing her. After the initial 500 cc of fluid, her pressures are still holding stable, her heart rate is down to around the 130s, respiratory rate is improved but still tachypneic in the 20s and her oxygenation is good. Will give her some more fluid and see if that continues tohelp while she is boarding in the emergency department and waiting to go upstairs to bed. Some family arrived, son-in-law one of the HCPOA's, they are aware that the patient has a living will but unaware of any of the details or if it says the patient is DNR. We attempted to asked the patient but she is too somnolent and confused to answer. At this time I discussed with the family that we will keep her a full code until we know otherwise, family was going to contact mother family members that are out of town for more details. Other additions or changes: [None] History & Record Review Additional record(s) reviewed:: Prior outpatient record (Echocardiogram 2023) Lab Data Labs: Laboratory Results - last 24 hr 06/30/24 06/30/24 06/30/24 12:40 12:58 15:00 WBC 9.9 RBC 4.04 L Hgb 11.7 L Hct 36.5 L MCV 90.3 MCH 29.0 MCHC 32.1 RDW Std Deviation 50.9 H RDW Coeff of Sudha 15.4 H Plt Count 216 MPV 10.8 Immature Gran % (Auto) 0.800 Neut % (Auto) 85.8 H Lymph % (Auto) 4.6 L Bath % (Auto) 8.2 Eos % (Auto) 0.0 Baso % (Auto) 0.6 Absolute Neuts (auto) 8.5 H Absolute Lymphs (auto) 0.46 L Nucleated RBC % 0 Platelet Estimate ADEQUATE Polychromasia 1+ Anisocytosis 1+ Sodium 136 Potassium 4.6 Chloride 99 Carbon Dioxide 21.6 Anion Gap 15 BUN 27 H Creatinine 1.73 H Estim Creat Clear Calc 32.21 L Est GFR (MDRD) Non-Af 29 L BUN/Creatinine Ratio 15.6 Glucose 271 H Lactic Acid 2.4 H* Calcium 9.2 Total Creatine Kinase 66 Troponin T High Sens 155 H* Troponin T Hi Sens 2 Hr 137 H* [place] [address] H Procalcitonin 0.73 H Urine Color Yellow Urine Clarity Clear Urine pH 6.0 Ur Specific Francitas 1.020 Urine Protein 500 H Urine Glucose (UA) 250 H Urine Ketones Negative Urine Occult Blood 25 H Urine Nitrite Negative Urine Bilirubin Negative Urine Urobilinogen 1 H Ur Leukocyte Esterase 25 H Urine RBC 0 SEEN Urine WBC 5-10 SEEN Ur Squamous Epith Cells 0-5 SEEN Urine Bacteria 0 SEEN Hyaline Casts 0-5 SEEN Fine Granular Casts 0-5 SEEN Coarse Granular Casts 10-25 SEEN Urine Mucus 0 SEEN ABG Data ABG results: ABG 06/30/24 13:22 Specimen Type ART Sample Site L Brach pH 7.50 H Bicarbonate Actual 25.1 Total CO2 26 Base Excess 2 O2 Saturation 98 O2 % 4.0 ABG pCO2 32.0 L ABG pO2 98 O2 Delivery Device Cannula Vent Mode Not entered Radiography Diagnostic Testing: Clinical Impression(s) from Imaging Studies Brain CT 06/30/24 12:40 IMPRESSION: CHRONIC CHANGES. Questionable lacunar infarct in the head of the left caudate nucleus. Reading Location: [facility]- Chest X-Ray 06/30/24 13:33 IMPRESSION: Stable pleural-parenchymal changes at the left lung base with increased markings at the right lung base suggestive of atelectasis and/or early infiltrate with superimposed mild degree of CHF. Cardiomegaly. Reading Location: [facility]- Tibia/Fibula X-Ray 06/30/24 13:42 IMPRESSION: Diffuse soft tissue swelling. No bony abnormality is seen. Reading Location: [facility]- Management Discussion w/another healthcare provider: Hospitalist Discharge Plan Dx/Rx/DC Orders Clinical Impression: Sepsis, Encephalopathy acute, Cellulitis of right lower leg, Atrial fibrillation with RVR, Acute on chronic diastolic (congestive) heart failure Disposition Disposition: Acute Care [facility] What to do if you have Problems For any increased pain, shortness of breath, bleeding, nausea or vomiting, chest pain, or any unexpected problems, contact your Primary Care Provider. Call [facility] ([phone]) or report to the closest Emergency Room. Call 911 if necessary. 06/30/24 1634 <Electronically signed by Tres Cronin MD> Cosigner Signature (if applicable): 06/30/24 1515 <Electronically signed by Torrey HDZ> CC: Dr. Alexy Douglas MD ~ Signed [facility] Work Phone: 1(252) 751-594104-15-2025 Radiology Diagnostic study [facility]04-15-2025 Radiology Diagnostic study [facility]04-15-2025 Radiology Diagnostic study [facility] 04-26-2024 Evaluation note* Diagnosis Onset Date Resolution Status Admit Date Atrial fibrillation with RVR resolve d April 25, 2024 11:06pm CHF (congestive heart failure) inact guero April 25, 2024 11:06pm Nausea and vomiting inactive Febru [email or web address] 11:06pm Pleural effusion inactive April 25, 2024 11:06pm Pneumonia inactive April 25, 2024 11:06pm Chronic diastolic (congestiv e) heart failure chronic May 14, 2 025 2:35pm Longstanding persistent atri al fibrillation chronic May 14, 2 025 2:35pm Essential (primary) hypertension inactive May 14, 2 025 2:35pm Pleural effusion, left inactive Fe bruary 2024 2:35pm Tricuspid valve insufficiency inacti ve June 26, 2024 1:49pm (HFpEF) heart failure with preserved ejection fraction inactive Apri l 2024 3:02pm Acute on chronic diastolic (congestive) heart failure inactive June 30, 2024 3:02pm Atrial fibrillation with RVR inactiv e June 30, 2024 3:02pm Bacteremia inactive June 30 3:02pm Cellulitis of right leg inactive A pril 2024 3:02pm Cellulitis of right lower leg inacti ve June 30, 2024 3:02pm Chronic kidney disease, stag e 3b inactive June 30, 2024 3:02pm Elevated troponin inactive June 162024 3:02pm Encephalopathy acute inactive Apri l 2024 3:02pm Essential (primary) hypertension inactive June 30, 2024 3:02pm Ileus due to infection inactive Ap ril 2024 3:02pm Sepsis inactive June 30 3:02pm Tricuspid valve insufficiency inacti ve June 30, 2024 3:02pm Type 2 diabetes mellitus wit h hyperglycemia inactive June 30, 2024 3:02pm Hyperlipidemia acute June 7:11pm Hypothyroidism acute June 7:11pm COPD (chronic obstructive pulmonary disease) chronic July 06, 2 025 7:11pm Debility resolved July 06 7:11pm Acute on chronic diastolic (congestive) heart failure inactive July 06, 2024 7:11pm Atrial fibrillation with RVR inactiv e July 06, 2024 7:11pm Bacteremia inactive July 06 7:11pm Cellulitis of right leg inactive A pril 2024 7:11pm Chronic kidney disease, stag e 3b inactive July 06, 2024 7:11pm Encephalopathy acute inactive Apri l 2024 7:11pm Ileus due to infection inactive Ap ril 2024 7:11pm Iron deficiency anemia inactive Ap ril 2024 7:11pm Sepsis inactive July 06 7:11pm Tricuspid valve insufficiency inacti ve July 06, 2024 7:11pm Type 2 diabetes mellitus wit h hyperglycemia inactive July 06, 2024 7:11pm [facility] Work Phone: 1(270) 945-656201-15-2025 Evaluation note* Diagnosis Onset Date Resolution Status Admit Date Chronic diastolic (congestiv e) heart failure chronic April 01 3:03pm Longstanding persistent atri al fibrillation chronic April 01 3:03pm Stage 2 moderate COPD by GOL D classification chronic April 01 3:03pm Daytime hypersomnia inactive 2024 3:03pm Hypoxia inactive April 01, 2024 3:03pm Pleural effusion, left inactive Ja nicoleary 2024 3:03pm Hyperlipidemia acute April 052024 12:50pm Hypothyroidism acute April 052024 12:50pm Atrial fibrillation with RVR resolve d April 05, 2024 12:50pm Acute bronchospasm inactive r y 2024 12:50pm Acute exacerbation of chroni c heart failure inactive April 05 12:50pm Chronic anticoagulation inactive J anuary 2024 12:50pm Chronic kidney disease, stag e 3b inactive April 05 12:50pm Chronic respiratory failure with hypoxia and hypercapnia inactive Aj uary 2024 12:50pm Essential (primary) hypertension inactive April 05 12:50pm Acute exacerbation of chroni c obstructive pulmonary disease deleted Ja nuary 2024 12:50pm Atrial fibrillation with RVR resolve d April 25, 2024 11:06pm CHF (congestive heart failure) inact guero April 25, 2024 11:06pm Nausea and vomiting inactive Febru kacey 2024 11:06pm Pleural effusion inactive April 25, 2024 11:06pm Pneumonia inactive April 25, 2024 11:06pm Chronic diastolic (congestiv e) heart failure chronic May 14, 2 025 2:35pm Longstanding persistent atri al fibrillation chronic May 14, 2 025 2:35pm Essential (primary) hypertension inactive May 14, 2 025 2:35pm Pleural effusion, left inactive Fe bruary 2024 2:35pm Tricuspid valve insufficiency inacti ve June 26, 2024 1:49pm (HFpEF) heart failure with preserved ejection fraction inactive Apri l 2024 3:02pm Acute on chronic diastolic (congestive) heart failure inactive June 30, 2024 3:02pm Atrial fibrillation with RVR inactiv e June 30, 2024 3:02pm Bacteremia inactive June 30 3:02pm Cellulitis of right leg inactive A pril 2024 3:02pm Cellulitis of right lower leg inacti ve June 30, 2024 3:02pm Chronic kidney disease, stag e 3b inactive June 30, 2024 3:02pm Elevated troponin inactive June 162024 3:02pm Encephalopathy acute inactive Apri l 2024 3:02pm Essential (primary) hypertension inactive June 30, 2024 3:02pm Ileus due to infection inactive Ap ril 2024 3:02pm Sepsis inactive June 30 3:02pm Tricuspid valve insufficiency inacti ve June 30, 2024 3:02pm Type 2 diabetes mellitus wit h hyperglycemia inactive June 30, 2024 3:02pm Hyperlipidemia acute June 7:11pm Hypothyroidism acute June 7:11pm COPD (chronic obstructive pulmonary disease) chronic July 06, 2 025 7:11pm Debility resolved July 06 7:11pm Acute on chronic diastolic (congestive) heart failure inactive July 06, 2024 7:11pm Atrial fibrillation with RVR inactiv e July 06, 2024 7:11pm Bacteremia inactive July 06 7:11pm Cellulitis of right leg inactive A pril 2024 7:11pm Chronic kidney disease, stag e 3b inactive July 06, 2024 7:11pm Encephalopathy acute inactive Apri l 2024 7:11pm Ileus due to infection inactive Ap ril 2024 7:11pm Iron deficiency anemia inactive Ap ril 2024 7:11pm Sepsis inactive July 06 7:11pm Tricuspid valve insufficiency inacti ve July 06, 2024 7:11pm Type 2 diabetes mellitus wit h hyperglycemia inactive July 06, 2024 7:11pm [facility] Work Phone: 1(705) 191-744412-30-2024 Evaluation note* Diagnosis Onset Date Resolution Status Admit Date (HFpEF) heart failure with preserved ejection fraction acute Dece mber 2023 2:13pm Acute heart failure with preserved ejection fraction (HFpEF) resolved March 16, 2 024 2:13pm Acute HFrEF (heart failure w ith reduced ejection fraction) resolved Decem shira 2023 2:13pm Acute hypoxemic respiratory failure resolved March 16, 2 024 2:13pm Acute on chronic hypoxic respiratory failure resolved February 2:13pm Atrial fibrillation with rap id ventricular response resolved March 162023 2:13pm Bilateral pleural effusion resolved March 16, 2024 2:13pm Hypoxic respiratory failure resolved March 16, 2024 2:13pm Anticoagulated inactive February 172023 2:13pm Daytime hypersomnia acute Janua ry 2024 3:03pm Chronic diastolic (congestiv e) heart failure chronic April 01 3:03pm Hypoxia chronic April 01, 2024 3:03pm Longstanding persistent atri al fibrillation chronic April 01 3:03pm Pleural effusion, left chronic Ja nuary 2024 3:03pm Stage 2 moderate COPD by GOL D classification chronic April 01 3:03pm Acute bronchospasm acute Maruar y 2024 12:50pm Acute exacerbation of chroni c heart failure acute April 05 12:50pm Chronic anticoagulation acute J anuary 2024 12:50pm Chronic kidney disease, stag e 3b acute April 05 12:50pm Hyperlipidemia acute April 052024 12:50pm Hypothyroidism acute April 052024 12:50pm Essential (primary) hypertension chronic April 05 12:50pm Atrial fibrillation with RVR resolve d April 05, 2024 12:50pm Chronic respiratory failure with hypoxia and hypercapnia inactive Ja uary 2024 12:50pm Acute exacerbation of chroni c obstructive pulmonary disease deleted Ja nuary 2024 12:50pm Nausea and vomiting acute Febru [email or web address] 11:06pm Pleural effusion acute April 25, 2024 11:06pm Pneumonia acute April 25, 2024 11:06pm Atrial fibrillation with RVR resolve d April 25, 2024 11:06pm CHF (congestive heart failure) inact guero April 25, 2024 11:06pm Chronic diastolic (congestiv e) heart failure chronic May 14, 2 025 2:35pm Essential (primary) hypertension chronic May 14, 2 025 2:35pm Longstanding persistent atri al fibrillation chronic May 14, 2 025 2:35pm Pleural effusion, left chronic Fe bruary 2024 2:35pm Tricuspid valve insufficiency acute June 26, 2024 1:49pm [facility] Work Phone: 1(850) 955-126312-30-2024 Evaluation note* Diagnosis Onset Date Resolution Status Admit Date (HFpEF) heart failure with preserved ejection fraction acute Dece mber 2023 2:13pm Acute heart failure with preserved ejection fraction (HFpEF) resolved March 16, 2 024 2:13pm Acute HFrEF (heart failure w ith reduced ejection fraction) resolved Decem shira 2023 2:13pm Acute hypoxemic respiratory failure resolved March 16, 2 024 2:13pm Acute on chronic hypoxic respiratory failure resolved February 2:13pm Atrial fibrillation with rap id ventricular response resolved March 162023 2:13pm Bilateral pleural effusion resolved March 16, 2024 2:13pm Hypoxic respiratory failure resolved March 16, 2024 2:13pm Anticoagulated inactive February 172023 2:13pm Daytime hypersomnia acute Janua ry 2024 3:03pm Chronic diastolic (congestiv e) heart failure chronic April 01 3:03pm Hypoxia chronic April 01, 2024 3:03pm Longstanding persistent atri al fibrillation chronic April 01 3:03pm Pleural effusion, left chronic Ja nuary 2024 3:03pm Stage 2 moderate COPD by GOL D classification chronic April 01 3:03pm Acute bronchospasm acute r y 2024 12:50pm Acute exacerbation of chroni c heart failure acute April 05 12:50pm Chronic anticoagulation acute J anuary 2024 12:50pm Chronic kidney disease, stag e 3b acute April 05 12:50pm Hyperlipidemia acute April 052024 12:50pm Hypothyroidism acute April 052024 12:50pm Essential (primary) hypertension chronic April 05 12:50pm Atrial fibrillation with RVR resolve d April 05, 2024 12:50pm Chronic respiratory failure with hypoxia and hypercapnia inactive Aj uary 2024 12:50pm Acute exacerbation of chroni c obstructive pulmonary disease deleted Ja ary 2024 12:50pm Nausea and vomiting acute Febru kacey2024 11:06pm Pleural effusion acute April 25, 2024 11:06pm Pneumonia acute April 25, 2024 11:06pm Atrial fibrillation with RVR resolve d April 25, 2024 11:06pm CHF (congestive heart failure) inact guero April 25, 2024 11:06pm Chronic diastolic (congestiv e) heart failure chronic May 14, 2 025 2:35pm Essential (primary) hypertension chronic May 14, 2 025 2:35pm Longstanding persistent atri al fibrillation chronic May 14, 2 025 2:35pm Pleural effusion, left chronic Fe bruary 2024 2:35pm Tricuspid valve insufficiency acute June 26, 2024 1:49pm Atrial fibrillation with RVR acute June 30, 2024 3:02pm Cellulitis of right lower leg acute June 30, 2024 3:02pm Encephalopathy acute acute Apri l 2024 3:02pm Sepsis acute June 30 3:02pm Acute on chronic diastolic (congestive) heart failure chronic June 30, 2024 3:02pm [facility] Work Phone: [phone]) 140-375809-19-2024 [facility]09-17-2024 [facility]05-03-2024 Hospital Discharge instructions Patient Education 07/19/2023 11:07:04 Heart-Healthy Eating Plan, [id number] Heart-Healthy Eating Plan Heart-healthy meal planning includes: Eating less unhealthy fats. Eating more healthy fats. Making other changes in your diet. Talk with your doctor or a diet specialist (dietitian) to create an eating plan that is right for you. What is my plan? Your doctor may recommend an eating plan that includes: Total fat: % or less of total calories a day. Saturated fat: % or less of total calories a day. Cholesterol: less than mg a day. What are tips for following this plan? Cooking Avoid frying your food. Try to bake, boil, grill, or broil it instead. You can also reduce fat by: Removing the skin from poultry. Removing all visible fats from meats. Steaming vegetables in water or broth. Meal planning At meals, divide your plate into four equal parts: ?Fill one-half of your plate with vegetables and green salads. ?Fill one-fourth of your plate with whole grains. ?Fill one-fourth of your plate with lean protein foods. Eat 4 5 servings of vegetables per day. A serving of vegetables is: ?1 cup of raw or cooked vegetables. ?2 cups of raw leafy greens. Eat 4 5 servings of fruit per day. A serving of fruit is: ?1 medium whole fruit. ? cup of dried fruit. ? cup of fresh, frozen, or canned fruit. ? cup of 100% fruit juice. Eat more foods that have soluble fiber. These are apples, broccoli, carrots, beans, peas, and barley. Try to get 20 30 g of fiber per day. Eat 4 5 servings of nuts, legumes, and seeds per week: ?1 serving of dried beans or legumes equals cup after being cooked. ?1 serving of nuts is cup. ?1 serving of seeds equals 1 tablespoon. General information Eat more home-cooked food. Eat less restaurant, buffet, and fast food. Limit or avoid alcohol. Limit foods that are high in starch and sugar. Avoid fried foods. Lose weight if you are overweight. Keep track of how much salt (sodium) you eat. This is important if you have high blood pressure. Ask your doctor to tell you more about this. Try to add vegetarian meals each week. Fats Choose healthy fats. These include olive oil and canola oil, flaxseeds, walnuts, almonds, and seeds. Eat more omega-3 fats. These include salmon, mackerel, sardines, tuna, flaxseed oil, and ground flaxseeds. Try to eat fish at least 2 times each week. Check food labels. Avoid foods with trans fats or high amounts of saturated fat. Limit saturated fats. ?These are often found in animal products, such as meats, butter, and cream. ?These are also found in plant foods, such as palm oil, palm kernel oil, and coconut oil. Avoid foods with partially hydrogenated oils in them. These have trans fats. Examples are stick margarine, some tub margarines, cookies, crackers, and other baked goods. What foods can I eat? Fruits All fresh, canned (in natural juice), or frozen fruits. Vegetables Fresh or frozen vegetables (raw, steamed, roasted, or grilled). Green salads. Grains Most grains. Choose whole wheat and whole grains most of the time. Rice and pasta, including brown rice and pastas made with whole wheat. Meats and other proteins Lean, well-trimmed beef, veal, pork, and curtis. Chicken and turkey without skin. All fish and shellfish. Wild duck, rabbit, pheasant, and venison. Egg whites or low-cholesterol egg substitutes. Dried beans, peas, lentils, and tofu. Seeds and most nuts. Dairy Low-fat or nonfat cheeses, including ricotta and mozzarella. Skim or 1% milk that is liquid, powdered, or evaporated. Buttermilk that is made with low-fat milk. Nonfat or low-fat yogurt. Fats and oils Non-hydrogenated (trans-free) margarines. Vegetable oils, including soybean, sesame, sunflower, olive, peanut, safflower, corn, canola, and cottonseed. Salad dressings or mayonnaise made with a vegetable oil. Beverages Mineral water. Coffee and tea. Diet carbonated beverages. Sweets and desserts Sherbet, gelatin, and fruit ice. Small amounts of dark chocolate. Limit all sweets and desserts. Seasonings and condiments All seasonings and condiments. The items listed above may not be a complete list of foods and drinks you can eat. Contact a dietitian for more options. What foods should I avoid? Fruits Canned fruit in heavy syrup. Fruit in cream or butter sauce. Fried fruit. Limit coconut. Vegetables Vegetables cooked in cheese, cream, or butter sauce. Fried vegetables. Grains Breads that are made with saturated or trans fats, oils, or whole milk. Croissants. Sweet rolls. Donuts. High-fat crackers, such as cheese crackers. Meats and other proteins Fatty meats, such as hot dogs, ribs, sausage, nicole, rib-eye roast or steak. High-fat deli meats, such as salami and bologna. Caviar. Domestic duck and goose. Organ meats, such as liver. Dairy Cream, sour cream, cream cheese, and creamed cottage cheese. Whole-milk cheeses. Whole or 2% milk that is liquid, evaporated, or condensed. Whole buttermilk. Cream sauce or high-fat cheese sauce. Yogurt that is made from whole milk. Fats and oils Meat fat, or shortening. [place] butter, hydrogenated oils, palm oil, coconut oil, palm kernel oil. Solid fats and shortenings, including nicole fat, salt pork, lard, and butter. Nondairy cream substitutes. Salad dressings with cheese or sour cream. Beverages Regular sodas and juice drinks with added sugar. Sweets and desserts Frosting. Pudding. Cookies. Cakes. Pies. Milk chocolate or white chocolate. Buttered syrups. Full-fat ice cream or ice cream drinks. The items listed above may not be a complete list of foods and drinks to avoid. Contact a dietitianfor more information. Summary Heart-healthy meal planning includes eating less unhealthy fats, eating more healthy fats, and making other changes in your diet. Eat a balanced diet. This includes fruits and vegetables, low-fat or nonfat dairy, lean protein, nuts and legumes, whole grains, and heart-healthy oils and fats. This information is not intended to replace advice given to you by your health care provider. Make sure you discuss any questions you have with your health care provider. Document Released: 09/02/2012 Document Revised: 05/08/2018 Document Reviewed: 04/11/2018 [employer] Patient Education 2020 [employer]. 07/19/2023 11:07:03 Carbohydrate Counting for Diabetes Mellitus, Adult Carbohydrate Counting for Diabetes Mellitus, Adult Carbohydrate counting is a method of keeping track of how many carbohydrates you eat. Eating carbohydrates naturally increases the amount of sugar (glucose) in the blood. Counting how many carbohydrates you eat helps keep your blood glucose within normal limits, which helps you manage your diabetes(diabetes mellitus). It is important to know how many carbohydrates you can safely have in each meal. This is different for every person. A diet and nutrition faculty member (registered dietitian) can help you make a meal plan and calculate how many carbohydrates you should have at each meal and snack. Carbohydrates are found in the following foods: Grains, such as breads and cereals. Dried beans and soy products. Starchy vegetables, such as potatoes, peas, and corn. Fruit and fruit juices. Milk and yogurt. Sweets and snack foods, such as cake, cookies, candy, chips, and soft drinks. How do I count carbohydrates? There are two ways to count carbohydrates in food. You can use either of the methods or a combination of both. Reading Nutrition Facts on packaged food The Nutrition Facts list is included on the labels of almost all packaged foods and beverages in the [place] It includes: The serving size. Information about nutrients in each serving, including the grams (g) of carbohydrate per serving. To use the Nutrition Facts: Decide how many servings you will have. Multiply the number of servings by the number of carbohydrates per serving. The resulting number is the total amount of carbohydrates that you will be having. Learning standard serving sizes of other foods When you eat carbohydrate foods that are not packaged or do not include Nutrition Facts on the label, you need to measure the servings in order to count the amount of carbohydrates: Measure the foods that you will eat with a food scale or measuring cup, if needed. Decide how many standard-size servings you will eat. Multiply the number of servings by 15. Most carbohydrate-rich foods have about 15 g of carbohydrates per serving. ?For example, if you eat 8 oz (170 g) of strawberries, you will have eaten 2 servings and 30 g of carbohydrates (2 servings x 15 g = 30 g). For foods that have more than one food mixed, such as soups and casseroles, you must count the carbohydrates in each food that is included. The following list contains standard serving sizes of common carbohydrate-rich foods. Each of theseservings has about 15 g of carbohydrates: hamburger bun or [place] muffin. oz (15 mL) syrup. oz (14 g) jelly. 1 slice of bread. 1 six-inch tortilla. 3 oz (85 g) cooked rice or pasta. 4 oz (113 g) cooked dried beans. 4 oz (113 g) starchy vegetable, such as peas, corn, or potatoes. 4 oz (113 g) hot cereal. 4 oz (113 g) mashed potatoes or of a large baked potato. 4 oz (113 g) canned or frozen fruit. 4 oz (120 mL) fruit juice. 4 6 crackers. 6 chicken nuggets. 6 oz (170 g) unsweetened dry cereal. 6 oz (170 g) plain fat-free yogurt or yogurt sweetened with artificial sweeteners. 8 oz (240 mL) milk. 8 oz (170 g) fresh fruit or one small piece of fruit. 24 oz (680 g) popped popcorn. Example of carbohydrate counting Sample meal 3 oz (85 g) chicken breast. 6 oz (170 g) brown rice. 4 oz (113 g) corn. 8 oz (240 mL) milk. 8 oz (170 g) strawberries with sugar-free whipped topping. Carbohydrate calculation 1.Identify the foods that contain carbohydrates: Rice. [place]. Milk. Strawberries. 2.Calculate how many servings you have of each food: 2 servings rice. 1 serving corn. 1 serving milk. 1 serving strawberries. 3.Multiply each number of servings by 15 servings rice x 15 g = 30 g. 1 serving corn x 15 g = 15 g. 1 serving milk x 15 g = 15 g. 1 serving strawberries x 15 g = 15 g. 4.Add together all of the amounts to find the total grams of carbohydrates eaten: 30 g + 15 g + 15 g + 15 g = 75 g of carbohydrates total. Summary Carbohydrate counting is a method of keeping track of how many carbohydrates you eat. Eating carbohydrates naturally increases the amount of sugar (glucose) in the blood. Counting how many carbohydrates you eat helps keep your blood glucose within normal limits, which helps you manage your diabetes. A diet and nutrition faculty member (registered dietitian) can help you make a meal plan and calculate how many carbohydrates you should have at each meal and snack. This information is not intended to replace advice given to you by your health care provider. Make sure you discuss any questions you have with your health care provider. Document Released: 03/04/2006 Document Revised: 09/26/2017 Document Reviewed: 08/15/2016 [employer] Patient Education 2020 [employer]. 07/19/2023 11:07:01 8- Incision Care (01/2022) (CUSTOM) Incision Care General Information about how to care for your Incision Always follow your surgeon s specific recommendations about incision care exactly. Keep incision clean and dry. Do not put salves, ointments or powder on the incision unless your surgeon has instructed you to. If you have a dressing over your incision, change it as directed by your healthcare professional Avoid touching your incision. Hands carry germs that can cause infections. When your surgeon gives you permission to shower, gently wash, DO NOT RUB your incision, with mild soap and water. You can use liquid or bar soap. Use a new/clean washcloth and towel on your incisionevery day. Avoid irritation to the incision. Wear loose fitting clothing. Do not remove the tape strips (steri strips) until told to do so. They will fall off on their own. Do not expose your incision to sunlight. After washing your hands, check your incision daily to make sure it is healing normally. The incision is staying together There is no drainage or only small amounts of clear or bloody drainage The skin around the incision may be slightly red which goes away over time You may notice some soreness, tenderness, tingling, numbness, bruising and itching around the site. Notify your Surgeon if: Your incision shows signs of an infection such as skin very painful, red, warm and/or swollen around the incision, Drainage that is foul smelling or looks like pus or If you have an elevated temperature with the above symptoms The incision begins to come apart You have large amounts of blood or fluid oozing from the incision. Make sure you have a follow-up appointment with your surgeon. Call to reschedule if you are unable to make the appointment time that was scheduled for you. Instructions: Wash your chest incision first. Wash your arm incision second. Wash your leg incisions last. Clean the rest of your body after your incisions are washed. Rinse your body well before leaving the shower. Dry gently with a clean towel. Do not use creams, lotions, powder, or salves on incisions. Please dress in clean, loose-fitting clothes. Incision Care Video Document Released: 03/04/2006 Document Revised: 02/18/2013 Document Reviewed: 03/05/2014 [employer] Patient Information 2015 [employer]. This information is not intended to replace advicegiven to you by your health care provider. Make sure you discuss any questions you have with your health care provider. Follow Up Care 06/25/2023 15:06:57 With:LITA GARZA Address: [address] [place] [address] [id number] [facility] [place] [place] [address]- [phone] When:08/01/2023 10:30:00 Comments:This will be with Dr. Gardiner's nurse practitioner. Please present to [facility] radiology department 1 hour prior to this visit for chest x-ray. With:LITA GARZA Address: [address] [place] [address] [id number] [facility] [place] [address]- [phone] When:07/22/2023 08:30:00 Comments:This will be a TELEPHONE CALL With:[facility]. Nurse to Nurse Report: [phone] Address:Unknown When:1-2 days With:JUN DOUGLAS Address: [facility] [address] [facility] [address] [place] [address]- Business (1) When:1-2 days [facility] 05-03-2024 Note Discharge Instructions Thank you for allowing [facility] to assist you with your healthcare needs. The following is importantdischarge information regarding your hospital visit. 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 Pat dry, no ointments/lotions/powders to incision sites Left lateral chest sutures will be removed at follow-up appointment Scheduled Follow-Up Appointments Appointment Type When With Where Contact InformationTelephone 07/22/2023 08:30 AM EDT LITA GARZA [facility] Cardiothoracic Surgery CTS OV Post Op 08/01/2023 10:30 AM EDT LITA GARZA [facility] Cardioth[facility]acic Surgery Follow Up Appointments Follow Up with LITA GARZA When 08/01/2023 10:30 AM EDT Why: This will be with Dr. Gardiner's nurse practitioner. Please present to [facility] radiology department 1 hour prior to this visit for chest x-ray. Where: [address] [facility] [phone] [facility] [place] [address] [phone] Follow Up with LITA GARZA When 07/22/2023 08:30 AM EDT Why: This will be a TELEPHONE CALL Where: [address] [facility] [phone] [facility] [place] [address] [phone] Follow Up with [facility]. Nurse to Nurse Report: [phone] When Within 1-2 days Follow Up with JUN DOUGLAS When Within 1-2 days Where: [facility] [place] [address]- Business (1) The Following Activity and Diet Have Been Ordered for You Transfer of Care Activity - Ordered -- Lifting Restricted less than 10 pounds May Shower, No driving x 2 weeks, no soaking in tub/swimming (july show), 07/19/23 11:29:00 EDT Transfer of Care Diet - Ordered -- Type of Diet: Regular Diet, Calories Permitted: 1800 kcal, 07/19/23 11:29:00 EDT The Following Equipment Has Been Ordered for You Discharge Home Equipment Transfer of Care BIPAP - Ordered -- Mode: BIPAP, FIO2: 40, EPAP: 8, IPAP: 15, BiPAP 15/8 with 40% FiO2 nightly and as needed, Constant Order Transfer of Care Wound Care - Ordered -- Wash left chest surgical incisions with soap and water daily using clean washcloth, pat dry, no ointments/lotions/powders to incision sites., 07/19/23 11:29:00 EDT The Following Treatments Have Been Ordered for You Discharge Labs Transfer of Care Labwork - Ordered -- Complete blood count, Acute blood loss anemia, CBC daily and as needed, 07/19/23 11:29:00 EDT Transfer of Care Labwork - Ordered -- Basic metabolic panel, Diuretic management, BMP daily and as needed, 07/19/23 11:29:00 EDT Discharge Radiology Transfer of Care Radiology - Ordered -- PA and lateral chest x-ray, Pleural effusions, Chest x-ray daily and as needed, 07/19/23 11:29:00 EDT Other Therapies Transfer of Care OT - Ordered -- Reason for therapy: OT, 07/19/23 11:29:00 EDT Transfer of Care PT - Ordered -- Reason for therapy: PT, 07/19/23 11:29:00 EDT Post Acute Orders Transfer of Care Admission Level of Care - Ordered -- Level of Care SNF, 07/19/23 11:38:57 EDT Transfer of Care BIPAP - Ordered -- Mode: BIPAP, FIO2: 40, EPAP: 8, IPAP: 15, BiPAP 15/8 with 40% FiO2 nightly and as needed, Constant Order Transfer of Care Code Status - Ordered -- Full Code, Constant Order Transfer of Care Communication Order - Ordered -- Expect less than 30 day stay., 07/19/23 11:38:57 EDT Transfer of Care Labwork - Ordered -- Complete blood count, Acute blood loss anemia, CBC daily and as needed, 07/19/23 11:29:00 EDT Transfer of Care Labwork - Ordered -- Basic metabolic panel, Diuretic management, BMP daily and as needed, 07/19/23 11:29:00 EDT Transfer of Care Orders Electronically Signed By - Ordered -- 07/19/23 11:29:00 EDT, LIAT GARDINER MD Transfer of Care Oxygen Therapy - Ordered -- Oxygen (CONTINUOUS), Mobile in the Home Portable O2, Nasal Cannula, 6 liters per minute, 12 month(s), 07/19/23 11:29:00 EDT Transfer of Care Prognosis - Ordered -- Fair, Patient Aware: Yes Transfer of Care Rehab Potential - Ordered -- Rehab potential fair, 07/19/23 11:29:57 EDT Someone Will Contact You Regarding These Home Health Referrals No home referrals have been ordered for you. No one will call you. Allergies sulfa (Rash) Medications Please ask your primary doctor or pharmacist before taking any other medication not listed, including over the counter drugs, herbal medications, vitamins and or supplements as they may interact withyour home medications. What How Much When Why Instructions Last Dose New traMADol (traMADol 50 mg oral tablet) 0.5 tab(s) by mouth Every 12 hours as needed for Pain, scale 7-10 Acute postoperative pain Duration: 5 Days Printed Prescription Changed acetaminophen (Tylenol 325 mg oral capsule) 650 Milligram by mouth Every 4 hours as needed for Pain, scale 1-6 Changed furosemide (Lasix 40 mg oral tablet) 1 tab(s) by mouth Two (2) times a day Printed Prescription Changed potassium chloride (potassium chloride 20 mEq oral tablet, extended release) 1 tab(s) by mouth Three (3) times a day with meals Printed Prescription Unchanged albuterol (albuterol MDI (90 mcg/ inh) CFC free inhalation aerosol) by inhalation Every 4 hours as needed for Shortness of breath or wheezing Unchanged apixaban (Eliquis 2.5 mg oral tablet) 1 tab(s) by mouth Daily at bedtime Unchanged dilTIAZem (dilTIAZem 240 mg/ 24 hours oral capsule, extended release) 1 cap by mouth Daily at bedtime Unchanged ferrous sulfate (ferrous sulfate 325 mg (65 mg elemental iron) oral delayed release tablet) 1 tab(s) by mouth Once a day Unchanged glimepiride (glimepiride 1 mg oral tablet) 1 tab(s) by mouth Once a day Take with food Unchanged insulin degludec (Tresiba FlexTouch 200 units/ mL 3 mL subcutaneous solution) 40 unit(s) Subcutaneous Once a day rotate injection sites Unchanged levothyroxine (levothyroxine 200 mcg (0.2 mg) oral tablet) 1 tab(s) by mouth Once a day Unchanged levothyroxine (levothyroxine 50 mcg (0.05 mg) oral tablet) 1 tab(s) by mouth Once a day before a meal Unchanged metoprolol (Lopressor 100 mg oral tablet) 1 tab(s) by mouth Two (2) times a day Unchanged rosuvastatin (rosuvastatin 20 mg oral tablet) 1 tab(s) by mouth Daily at bedtime What How Much When Comments Stop Taking mirabegron (Myrbetriq 50 mg oral tablet, extended release) 50 Milligram by mouth Two (2) times a day Stop Taking sacubitril-valsartan (Entresto 24 mg-26 mg oral tablet) 1 tab(s) by mouth Two (2) times a day Stop Taking vibegron (Gemtesa 75 mg oral tablet) 1 tab(s) by mouth Daily at bedtime Please take this list to your next doctor s visit. Bring all medications you take, including over the counter medications, herbals and other supplements with you to your doctor s visit. Patients and families are reminded to discard old lists and to update any records with all medication providers or retail pharmacies. Education Materials Heart-Healthy Eating Plan Heart-healthy meal planning includes: Eating less unhealthy fats. Eating more healthy fats. Making other changes in your diet. Talk with your doctor or a diet specialist (dietitian) to create an eating plan that is right for you. What is my plan? Your doctor may recommend an eating plan that includes: Total fat: % or less of total calories a day. Saturated fat: % or less of total calories a day. Cholesterol: less than mg a day. What are tips for following this plan? Cooking Avoid frying your food. Try to bake, boil, grill, or broil it instead. You can also reduce fat by: Removing the skin from poultry. Removing all visible fats from meats. Steaming vegetables in water or broth. Meal planning At meals, divide your plate into four equal parts: ? Fill one-half of your plate with vegetables and green salads. ? Fill one-fourth of your plate with whole grains. ? Fill one-fourth of your plate with lean protein foods. Eat 4 5 servings of vegetables per day. A serving of vegetables is: ? 1 cup of raw or cooked vegetables. ? 2 cups of raw leafy greens. Eat 4 5 servings of fruit per day. A serving of fruit is: ? 1 medium whole fruit. ? cup of dried fruit. ? cup of fresh, frozen, or canned fruit. ? cup of 100% fruit juice. Eat more foods that have soluble fiber. These are apples, broccoli, carrots, beans, peas, and barley. Try to get 20 30 g of fiber per day. Eat 4 5 servings of nuts, legumes, and seeds per week: ? 1 serving of dried beans or legumes equals cup after being cooked. ? 1 serving of nuts is cup. ? 1 serving of seeds equals 1 tablespoon. General information Eat more home-cooked food. Eat less restaurant, buffet, and fast food. Limit or avoid alcohol. Limit foods that are high in starch and sugar. Avoid fried foods. Lose weight if you are overweight. Keep track of how much salt (sodium) you eat. This is important if you have high blood pressure. Ask your doctor to tell you more about this. Try to add vegetarian meals each week. Fats Choose healthy fats. These include olive oil and canola oil, flaxseeds, walnuts, almonds, and seeds. Eat more omega-3 fats. These include salmon, mackerel, sardines, tuna, flaxseed oil, and ground flaxseeds. Try to eat fish at least 2 times each week. Check food labels. Avoid foods with trans fats or high amounts of saturated fat. Limit saturated fats. ? These are often found in animal products, such as meats, butter, and cream. ? These are also found in plant foods, such as palm oil, palm kernel oil, and coconut oil. Avoid foods with partially hydrogenated oils in them. These have trans fats. Examples are stick margarine, some tub margarines, cookies, crackers, and other baked goods. What foods can I eat? Fruits All fresh, canned (in natural juice), or frozen fruits. Vegetables Fresh or frozen vegetables (raw, steamed, roasted, or grilled). Green salads. Grains Most grains. Choose whole wheat and whole grains most of the time. Rice and pasta, including brown rice and pastas made with whole wheat. Meats and other proteins Lean, well-trimmed beef, veal, pork, and curtis. Chicken and turkey without skin. All fish and shellfish. Wild duck, rabbit, pheasant, and venison. Egg whites or low-cholesterol egg substitutes. Dried beans, peas, lentils, and tofu. Seeds and most nuts. Dairy Low-fat or nonfat cheeses, including ricotta and mozzarella. Skim or 1% milk that is liquid, powdered, or evaporated. Buttermilk that is made with low-fat milk. Nonfat or low-fat yogurt. Fats and oils Non-hydrogenated (trans-free) margarines. Vegetable oils, including soybean, sesame, sunflower, olive, peanut, safflower, corn, canola, and cottonseed. Salad dressings or mayonnaise made with a vegetable oil. Beverages Mineral water. Coffee and tea. Diet carbonated beverages. Sweets and desserts Sherbet, gelatin, and fruit ice. Small amounts of dark chocolate. Limit all sweets and desserts. Seasonings and condiments All seasonings and condiments. The items listed above may not be a complete list of foods and drinks you can eat. Contact a dietitian for more options. What foods should I avoid? Fruits Canned fruit in heavy syrup. Fruit in cream or butter sauce. Fried fruit. Limit coconut. Vegetables Vegetables cooked in cheese, cream, or butter sauce. Fried vegetables. Grains Breads that are made with saturated or trans fats, oils, or whole milk. Croissants. Sweet rolls. Donuts. High-fat crackers, such as cheese crackers. Meats and other proteins Fatty meats, such as hot dogs, ribs, sausage, nicole, rib-eye roast or steak. High-fat deli meats, such as salami and bologna. Caviar. Domestic duck and goose. Organ meats, such as liver. Dairy Cream, sour cream, cream cheese, and creamed cottage cheese. Whole-milk cheeses. Whole or 2% milk that is liquid, evaporated, or condensed. Whole buttermilk. Cream sauce or high-fat cheese sauce. Yogurt that is made from whole milk. Fats and oils Meat fat, or shortening. [place] butter, hydrogenated oils, palm oil, coconut oil, palm kernel oil. Solid fats and shortenings, including nicole fat, salt pork, lard, and butter. Nondairy cream substitutes. Salad dressings with cheese or sour cream. Beverages Regular sodas and juice drinks with added sugar. Sweets and desserts Frosting. Pudding. Cookies. Cakes. Pies. Milk chocolate or white chocolate. Buttered syrups. Full-fat ice cream or ice cream drinks. The items listed above may not be a complete list of foods and drinks to avoid. Contact a dietitianfor more information. Summary Heart-healthy meal planning includes eating less unhealthy fats, eating more healthy fats, and making other changes in your diet. Eat a balanced diet. This includes fruits and vegetables, low-fat or nonfat dairy, lean protein, nuts and legumes, whole grains, and heart-healthy oils and fats. This information is not intended to replace advice given to you by your health care provider. Make sure you discuss any questions you have with your health care provider. Document Released: 09/02/2012 Document Revised: 05/08/2018 Document Reviewed: 04/11/2018 [employer] Patient Education 2020 [employer] Carbohydrate Counting for Diabetes Mellitus, Adult Carbohydrate counting is a method of keeping track of how many carbohydrates you eat. Eating carbohydrates naturally increases the amount of sugar (glucose) in the blood. Counting how many carbohydrates you eat helps keep your blood glucose within normal limits, which helps you manage your diabetes(diabetes mellitus). It is important to know how many carbohydrates you can safely have in each meal. This is different for every person. A diet and nutrition faculty member (registered dietitian) can help you make a meal plan and calculate how many carbohydrates you should have at each meal and snack. Carbohydrates are found in the following foods: Grains, such as breads and cereals. Dried beans and soy products. Starchy vegetables, such as potatoes, peas, and corn. Fruit and fruit juices. Milk and yogurt. Sweets and snack foods, such as cake, cookies, candy, chips, and soft drinks. How do I count carbohydrates? There are two ways to count carbohydrates in food. You can use either of the methods or a combination of both. Reading Nutrition Facts on packaged food The Nutrition Facts list is included on the labels of almost all packaged foods and beverages in the [place] It includes: The serving size. Information about nutrients in each serving, including the grams (g) of carbohydrate per serving. To use the Nutrition Facts: Decide how many servings you will have. Multiply the number of servings by the number of carbohydrates per serving. The resulting number is the total amount of carbohydrates that you will be having. Learning standard serving sizes of other foods When you eat carbohydrate foods that are not packaged or do not include Nutrition Facts on the label, you need to measure the servings in order to count the amount of carbohydrates: Measure the foods that you will eat with a food scale or measuring cup, if needed. Decide how many standard-size servings you will eat. Multiply the number of servings by 15. Most carbohydrate-rich foods have about 15 g of carbohydrates per serving. ? For example, if you eat 8 oz (170 g) of strawberries, you will have eaten 2 servings and 30 g of carbohydrates (2 servings x 15 g = 30 g). For foods that have more than one food mixed, such as soups and casseroles, you must count the carbohydrates in each food that is included. The following list contains standard serving sizes of common carbohydrate-rich foods. Each of theseservings has about 15 g of carbohydrates: hamburger bun or [place] muffin. oz (15 mL) syrup. oz (14 g) jelly. 1 slice of bread. 1 six-inch tortilla. 3 oz (85 g) cooked rice or pasta. 4 oz (113 g) cooked dried beans. 4 oz (113 g) starchy vegetable, such as peas, corn, or potatoes. 4 oz (113 g) hot cereal. 4 oz (113 g) mashed potatoes or of a large baked potato. 4 oz (113 g) canned or frozen fruit. 4 oz (120 mL) fruit juice. 4 6 crackers. 6 chicken nuggets. 6 oz (170 g) unsweetened dry cereal. 6 oz (170 g) plain fat-free yogurt or yogurt sweetened with artificial sweeteners. 8 oz (240 mL) milk. 8 oz (170 g) fresh fruit or one small piece of fruit. 24 oz (680 g) popped popcorn. Example of carbohydrate counting Sample meal 3 oz (85 g) chicken breast. 6 oz (170 g) brown rice. 4 oz (113 g) corn. 8 oz (240 mL) milk. 8 oz (170 g) strawberries with sugar-free whipped topping. Carbohydrate calculation 1. Identify the foods that contain carbohydrates: Rice. [place]. Milk. Strawberries. 2. Calculate how many servings you have of each food: 2 servings rice. 1 serving corn. 1 serving milk. 1 serving strawberries. 3. Multiply each number of servings by 15 servings rice x 15 g = 30 g. 1 serving corn x 15 g = 15 g. 1 serving milk x 15 g = 15 g. 1 serving strawberries x 15 g = 15 g. 4. Add together all of the amounts to find the total grams of carbohydrates eaten: 30 g + 15 g + 15 g + 15 g = 75 g of carbohydrates total. Summary Carbohydrate counting is a method of keeping track of how many carbohydrates you eat. Eating carbohydrates naturally increases the amount of sugar (glucose) in the blood. Counting how many carbohydrates you eat helps keep your blood glucose within normal limits, which helps you manage your diabetes. A diet and nutrition faculty member (registered dietitian) can help you make a meal plan and calculate how many carbohydrates you should have at each meal and snack. This information is not intended to replace advice given to you by your health care provider. Make sure you discuss any questions you have with your health care provider. Document Released: 03/04/2006 Document Revised: 09/26/2017 Document Reviewed: 08/15/2016 [employer] Patient Education 2020 [employer] Incision Care General Information about how to care for your Incision Always follow your surgeon s specific recommendations about incision care exactly. Keep incision clean and dry. Do not put salves, ointments or powder on the incision unless your surgeon has instructed you to. If you have a dressing over your incision, change it as directed by your healthcare professional Avoid touching your incision. Hands carry germs that can cause infections. When your surgeon gives you permission to shower, gently wash, DO NOT RUB your incision, with mild soap and water. You can use liquid or bar soap. Use a new/clean washcloth and towel on your incisionevery day. Avoid irritation to the incision. Wear loose fitting clothing. Do not remove the tape strips (steri strips) until told to do so. They will fall off on their own. Do not expose your incision to sunlight. After washing your hands, check your incision daily to make sure it is healing normally. The incision is staying together There is no drainage or only small amounts of clear or bloody drainage The skin around the incision may be slightly red which goes away over time You may notice some soreness, tenderness, tingling, numbness, bruising and itching around the site. Notify your Surgeon if: Your incision shows signs of an infection such as skin very painful, red, warm and/or swollen around the incision, Drainage that is foul smelling or looks like pus or If you have an elevated temperature with the above symptoms The incision begins to come apart You have large amounts of blood or fluid oozing from the incision. Make sure you have a follow-up appointment with your surgeon. Call to reschedule if you are unable to make the appointment time that was scheduled for you. Instructions: Wash your chest incision first. Wash your arm incision second. Wash your leg incisions last. Clean the rest of your body after your incisions are washed. Rinse your body well before leaving the shower. Dry gently with a clean towel. Do not use creams, lotions, powder, or salves on incisions. Please dress in clean, loose-fitting clothes. Incision Care Video Document Released: 03/04/2006 Document Revised: 02/18/2013 Document Reviewed: 03/05/2014 ExitCare Patient Information 2015 [employer]. This information is not intended to replace advicegiven to you by your health care provider. Make sure you discuss any questions you have with your health care provider. Additional Information VACCINATE! IT SAVES LIVES! Members of the community who have not yet received the COVID-19 vaccine and would like to receive it can visit one of [facility] vaccine clinics. There are many vaccine clinic locations within the [facility]. For locations and available times, please visit [email or web address] It is important to note that some COVID mobile vaccine clinics are held outdoors and may be canceled in rainy or stormy conditions. To learn more about pediatric vaccinations (ages 5-11), we invite you to visit the [facility] webpage. [email or web address] learn more about the COVID-19 vaccine, we invite you to visit the CDC website for a list of frequently asked questions.https://www.cdc.gov/coronavirus/2019-ncov/vaccines/faq.html [facility] Patient Portal Access Instructions: Stay connected with your healthcare team and access your personal medical information anytime with the [facility] Patient Portal. Please follow the directions below to create your [facility] account: 1.Access the email account you provided upon registration to the hospital/physician office.2.Look for an invitation email from [facility].3.Open the email and access the invitation link: AcceptInvitation to [facility].4.Fill in the required villavicencio to create your account. To access your account, visit [email or web address]. Click the blue button labeled Access Patient Portal and then log in with the username and password that you created in the steps above. You will be able to view your test results, lab results, a summary of your visits, upcoming appointments and more. There is also a convenient messaging option where you can send secure messages to your p [employer]vider. In addition, you will have the ability to download any documents or summaries to your computer and/or send the information securely to a physician. Remember that your healthcare information is confidential, so carefully consider who you will allowto register on the [facility] Patient Portal for access to your information. You can also access the [facility] Patient Portal on the [employer] cristopher. Simply click on Patient Portal and then log into your account. If you would like to receive a full copy of your medical records, please contact the [facility] Medical Records Department by calling [phone], Saturday through Saturday between 8 a.m. and 4:30 p.m. HOW TO SAFELY DISPOSE OF PRESCRIPTION MEDICATIONS Please use one of the following methods to safely dispose of your unused medications. 1.Use a drug disposal kit: the drug disposal pouch allows you to safely discard your old and unuseddrugs. Ask your nurse to give you one when you are discharged.2.Visit a local take-back location: Many local pharmacies and police departments have programs that collect old and unwanted prescriptiondrugs. Call your local pharmacy or go to http://[employer]/4N0Ew0b to find one close to you.3.Make use of household items: Use cat litter or old coffee grounds to dispose medications if other options arenot available. Mix your drugs with these household products, seal them in an airtight container andthrow it into the garbage. Call [facility]: [phone] to be sure your drugs can be disposed of in this way. Some medicines may require a different approach.4.Never flush your medications down the toilet. IF YOU HAVE BEEN PRESCRIBED AN OPIOID FOR PAIN If you have been prescribed an opioid (such as hydrocodone, oxycodone or morphine), it is critical to understand the possible side effects and risks of opioid pain medications. Even when taken as directed, opioids can have several side effects including: Tolerance, meaning you might need to take more of a medication for the same pain relief. Nausea, vomiting and/or constipation. Sleepiness, dizziness, dry mouth, confusion, depression or itching. Physical dependence, meaning you have withdrawal symptoms when a medication is stopped, can develop within a few days. KNOW YOUR RESPONSIBILITIES It is important to know exactly how much and how often to take the opioid pain medications you are prescribed. Never take opioids in higher amounts or more often than prescribed. Do not combine opioids with alcohol or other drugs that cause drowsiness, such as benzodiazepines, also known as benzos, including diazepam and alprazolam, muscle relaxants or sleep aids. Never sell or share prescription opioids. This is illegal. Store opioids in a secure place and out of reach of others (including children, family, friends and visitors). The last page of this document has been signed and retained as a CHART COPY. Signatures Patient Education Materials Heart-Healthy Eating Plan, Ljlo-wq-Jmgc Carbohydrate Counting for Diabetes Mellitus, Adult 8- Incision Care (01/2022) (CUSTOM) Medication Leaflets My discharge plan and instructions have been reviewed and explained to me and I,TONJA SÁNCHEZ understand my current condition and have read and understand these discharge instructions. I have received a written copy of the plan/instructions. If I have questions, I am aware that I should contact my doctor. 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/Pharmacy District Manager Signature: Date/Time: Relationship to Patient: Witness Name/Signature: Date[id number] Discharge summary Date of Service 07/19/2023 Discharge Diagnosis Pleural effusion, not elsewhere classified (J90 - ICD-10-CM) Acute on chronic diastolic (congestive) heart failure (I50.33 - ICD-10-CM) Hypertensive heart and chronic kidney disease with heart failure and stage 1 through stage 4 chronic kidney disease, or unspecified chronic kidney disease (I13.0 - ICD-10-CM) Chronic atrial fibrillation, unspecified (I48.20 - ICD-10-CM) Acute kidney failure, unspecified (N17.9 - ICD-10-CM) Pneumothorax, unspecified (J93.9 - ICD-10-CM) Atelectasis (J98.11 - ICD-10-CM) Hypoxemia (R09.02 - ICD-10-CM) Hyperlipidemia, unspecified (E78.5 - ICD-10-CM) Hypothyroidism, unspecified (E03.9 - ICD-10-CM) Chronic kidney disease, unspecified (N18.9 - ICD-10-CM) 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) Chronic obstructive pulmonary disease, unspecified (J44.9 - ICD-10-CM) Acute postoperative pain (G89.18 - ICD-10-CM) Ordered: traMADol 50 mg oral tablet; Dose : 25 mg = 0.5 tab(s), Oral, q12h, PRN Pain, scale 7-10, X 5 day(s), # 4 tab(s), 0 Refill(s), 07/24/23 11:32:00 EDT, Acute postoperative pain, 172.7, cm, 07/10/23 6:11:00 EDT, Height, 122.4, kg, 07/10/23 6:11:00 EDT, Dosing Weight Atrial fibrillation (I48.91 - ICD-10-CM) Breast cancer (C50.919 - ICD-10-CM) CHF (congestive heart failure) (I50.9 - ICD-10-CM) COPD (chronic obstructive pulmonary disease) (J44.9 - ICD-10-CM) Chronic kidney disease (CKD) (N18.9 - ICD-10-CM) Diabetes (E11.9 - ICD-10-CM) HTN (hypertension) (I10 - ICD-10-CM) Hyperlipidemia (E78.5 - ICD-10-CM) Hypothyroidism (E03.9 - ICD-10-CM) Hypoxia (R09.02 - ICD-10-CM) On home oxygen therapy (Z99.81 - ICD-10-CM) Recurrent left pleural effusion s/p left minithoracotomy, pleural lysis of adhesions, a combinationof mechanical and chemical pleurodesis 07/10/2023 (J90 - ICD-10-CM) Additional Orders: Ordered: Discharge,07/19/23 11:24:00 EDT, Discharged to: Rehab Facility, [facility] Discontinued: Gemtesa 75 mg oral tablet,Dose : 75 mg = 1 tab(s), Oral, qHS, # 30 tab(s), 0 Refill(s) Ordered: Telemetry Monitoring - Continue,07/19/23 7:51:00 EDT, Constant Order Ordered: Transfer of Care Activity,Lifting Restricted less than 10 pounds May Shower, No driving x 2 weeks, no soaking in tub/swimming (july shower), 07/19/23 11:29:00 EDT Ordered: Transfer of Care BIPAP,Mode: BIPAP, FIO2: 40, EPAP: 8, IPAP: 15, BiPAP 15/8 with 40% FiO2 nightly and as needed, Constant Order Ordered: Transfer of Care Code Status,Full Code, Constant Order Ordered: Transfer of Care Diet,Type of Diet: Regular Diet, Calories Permitted: 1800 kcal, 07/19/23 11:29:00 EDT Ordered: Transfer of Care Labwork,Complete blood count, Acute blood loss anemia, CBC daily and as needed, 07/19/23 11:29:00 EDT Ordered: Transfer of Care Labwork,Basic metabolic panel, Diuretic management, BMP daily and as needed, 07/19/23 11:29:00 EDT Ordered: Transfer of Care OT,Reason for therapy: OT, 07/19/23 11:29:00 EDT Ordered: Transfer of Care Orders Electronically Signed By,07/19/23 11:29:00 EDT, LIAT GARDINER Ordered: Transfer of Care Oxygen Therapy,Oxygen (CONTINUOUS), Mobile in the Home Portable O2, Nasal Cannula, 6 liters per minute, 12 month(s), 07/19/23 11:29:00 EDT Ordered: Transfer of Care PT,Reason for therapy: PT, 07/19/23 11:29:00 EDT Ordered: Transfer of Care Prognosis,Fair, Patient Aware: Yes Ordered: Transfer of Care Radiology,PA and lateral chest x-ray, Pleural effusions, Chest x-ray daily and as needed, 07/19/23 11:29:00 EDT Ordered: Transfer of Care Rehab Potential,Rehab potential fair, 07/19/23 11:29:57 EDT Ordered: Transfer of Care Wound Care,Wash left chest surgical incisions with soap and water daily using clean washcloth, pat dry, no ointments/lotions/powders to incision sites., 07/19/23 11:29:00 EDT Ordered: Tylenol 325 mg oral capsule,Dose : 650 mg =, Oral, q4h, PRN Pain, scale 1-6, 0 Refill(s) Ordered: furosemide 10 mg/mL injectable solution,Dose : 40 mg = 4 mL, IV Push, BID, X 14 day(s), # 112 mL, 0 Refill(s), 08/02/23 11:31:00 EDT Other status: metOLazone 5 mg oral tablet,Start: 07/19/23 9:30:00 EDT, Dose = 5 mg, = 1 tab(s), Oral, Once, Stop: 07/19/23 9:30:00 EDT, 07/19/23 9:30:00 EDT(Complete) Ordered: potassium chloride 20 mEq oral tablet, extended release,Dose : 20 mEq = 1 tab(s), Oral, TIDM, # 90 tab(s), 0 Refill(s) End of Orders Hospital Course This is an 83-year-old female with multiple comorbidities including congestive heart failure, atrial fibrillation (on Eliquis), hypertension, hyperlipidemia, hypothyroidism, on PRN home oxygen who was referred for possible surgical management of recurrent left pleural effusion. The patient states that her left pleural effusion was drained multiple times, and all the cytology results were negative. The patient claims that she has pneumonia few months back that she recovered from. [facility] and the patient is on heart failure management. Patient came in yesterday 07/10/2023 and had a left minithoracotomy with lysis of adhesions and mechanical and chemical pleurodesis with Dr. Gardiner. She tolerated the procedure well, was transferred to the [facility] SICU in stable condition, on Simple O2 mask and later weaned to nasal cannula. POD #1: Overnight her SaO2's dropped to the high 80s low 90s, currently she is on 8 L high flow nasal cannula with SaO2 91 to 93%. Lasix IV today, wean O2 as able. Maintain chest tubes to waterseal. Transfer to stepdown unit. POD #2: Patient became hypoxic overnight with SpO2 of 87% on 12 L nasal cannula. Rapid response called. ABG at that time revealed a pH of 7.33, pCO2 46, pO2 59. Chest x-ray had showed a small residual left pneumothorax and small bilateral pleural effusions with adjacent atelectasis/consolidation. Patient was transferred back to the cardiovascular ICU and placed on high flow nasal cannula. Pulmonary consulted. Currently on high flow nasal cannula, 60 L, 85% FiO2 with SpO2 96 to 97%. Will obtain echocardiogram. In atrial fibrillation. Eliquis remains on hold. Consult cardiology. Discontinue left anterior chest tube. BUN and creatinine 40 and 2.54. Change Lasix to 40 mg IV twice daily. Postop day #3. Lasix wasplaced on held yesterday secondary to increased creatinine. Renal consulted. Albumin every 8 hours x 6 doses started. Will hold off on diuresis for today yet. Currently on 10 L high flow salter nasalcannula. DuoNebs added. Pulmonary following. To wear BiPAP throughout the day as well as at bedtime. Continue chest tube to waterseal today. Echo still pending. Postop day #4. More alert today. Continue albumin, Lasix added. Nephrology continues to follow. Midodrine added. Continue chest tube to waterseal. Remains on high flow salter nasal cannula at 10 L. BiPAP at night and throughout the day astolerated. Echocardiogram discontinued per request of Dr. Gardiner. POD #5 continue Lasix, continue chest tube for now and monitoring of drainage. Keep in ICU. POD #6 patient's O2 needs are up to 12 Lsalter high flow nasal cannula. Patient wore her BiPAP sporadically overnight for about 1 to 2 hours at a time. She is currently up in the chair, needs further diuresis but will have nephrology decide. Chest tube to be discontinued today. Will continue to keep in ICU for now due to her O2 needs. Postop day #7. Continue to wean O2 as able, continue aggressive pulmonary toilet. Continue diuresis. Metolazone 5 mg p.o. x 1 today. Midodrine discontinued yesterday per cardiology. On Toprol and Cardizem. BUN/creatinine stable. Postop day #8 creatinine decreased to 1.55 BUN slightly increased to 59, Lasix increased to 40 mg IV every 12 hours. KCl 20 mill equivalents 3 times daily. High flow nasal cannula weaned to 5 L [1] POD #9: SpO2 93 to 96% on 6 L nasal cannula. Patient remains in atrial fibrillation. BUN and creatinine 62 and 1.62. Chest x-ray from this morning showing improved right pleural effusion, and unchanged small to moderate left pleural effusion. Patient has been cleared to be discharged to [facility] per Dr. Gardiner. Patient will continue Lasix 40 mg PO BID. Allergies sulfa (Rash) Procedures Operation/Procedure #1 Left exploratory VATS. #2 left minithoracotomy. #3 pleural lysis of adhesions. #4 a combination of mechanical and chemical pleurodesis. [2] Consults Consult to Physician - Ordered -- 07/12/23 3:59:00 EDT, FABIO REYNOSO MD, Routine, Medical management/High- flow nasal cannula Consult to Physician - Ordered -- 07/12/23 8:21:00 EDT, CHAD GRANADOS MD, Routine, Atrial fibrillation Consult to Physician - Ordered -- 07/12/23 13:57:00 EDT, SOURAV VAZ MD, Routine, acute on chronic kidney disease Imaging Results and Diagnostics XR Chest 1 View Result Date: July 19, 2023 Verified By: VICKY SELF, ASIF Muro CLINICAL STATEMENT: IMPRESSION: Interval improved aeration. Interval improved right pleural effusion now small with adjacent airspacedisease. Unchanged small to moderate left pleural effusion with adjacent airspacedisease. I have personally reviewed the images of this examination, and agree with theresident's findingsand interpretation. Physical Exam Vitals and Measurements T: 36.7 C (Oral) TMIN: 36.4 C (Axillary) TMAX: 37.1 C (Oral) HR: 111(Monitored) RR: 22 BP: 136/88 SpO2: 93% WT: 117.5 kg Weight Current Weight Dosing Weight: 122.4 kg (07/10/23) Current Weight: 117.5 kg (07/19/23) Current Weight: 120.7 kg (07/18/23) Constitutional: Alert, oriented x 4, appropriate HEENT: Normocephalic, atraumatic Lungs: Unlabored respirations, lung sounds diminished bilaterally, SpO2 93 to 95% on 6 L nasal cannula Heart: Atrial fibrillation, S1-S2, no murmur or rub, heart rate ranging 10 1-1 20 Abdomen: Obese, semifirm, bowel sounds present, positive flatus, positive bowel movement 07/18/2023 Extremities: Well-perfused, pedal pulses +1 bilaterally, +2 bilateral lower leg edema Integumentary: Left lateral chest thoracoscopy surgical incision open to air, to approximated, no drainage, left lateral chest previous chest tube sites open to air, to approximated, no drainage, sutures intact, slough present on upper previous chest tube site Disposition: [facility] Pending Labs and Studies Comprehensive Metabolic Profile Glucose Level: 149 mg/dL High (07/19/23 04:19:00) Sodium Level: 136 mEq/L (07/19/23 04:19:00) Potassium Level: 3.6 mEq/L (07/19/23 04:19:00) Chloride: 96 mEq/L Low (07/19/23 04:19:00) CO2: 35 mEq/L High (07/19/23 04:19:00) Creatinine Lvl (s): 1.62 mg/dL High (07/19/23 04:19:00) BUN/Creatinine Ratio: 38.3 ratio High (07/19/23 04:19:00) Calcium Lvl: 9.8 mg/dL (07/19/23 04:19:00) Code Status Code Status - Ordered -- 07/10/23 14:53:00 EDT, Full Code, Constant Order Admission Date 07/10/2023 Discharge Date 07/19/2023 Patient Instructions Wash left lateral chest surgical incision and previous chest tube sites with soap and water on a daily basis. Pat dry, no ointments/lotions/powders to incision sites Left lateral chest sutures will be removed at follow-up appointment Medications New Prescription traMADol (traMADol 50 mg oral tablet)0.5 tab(s) by mouth every 12 hours as needed Pain, scale 7-10 for 5 Days. Refills: 0. Changed acetaminophen (Tylenol 325 mg oral capsule)650 Milligram by mouth every 4 hours as needed Pain, scale 1-6. furosemide (furosemide 10 mg/mL injectable solution)4 Milliliter IV Push two (2) times a day for 14Days. Refills: 0. potassium chloride (potassium chloride 20 mEq oral tablet, extended release)1 tab(s) by mouth three(3) times a day with meals. Refills: 0. Unchanged albuterol (albuterol MDI (90 mcg/inh) CFC free inhalation aerosol)by inhalation every 4 hours as needed Shortness of breath or wheezing. apixaban (Eliquis 2.5 mg oral tablet)1 tab(s) by mouth daily at bedtime. dilTIAZem (dilTIAZem 240 mg/24 hours oral capsule, extended release)1 cap by mouth daily at bedtime. ferrous sulfate (ferrous sulfate 325 mg (65 mg elemental iron) oral delayed release tablet)1 tab(s)by mouth once a day. glimepiride (glimepiride 1 mg oral tablet)1 tab(s) by mouth once a day. Take with food. insulin degludec (Tresiba FlexTouch 200 units/mL 3 mL subcutaneous solution)40 unit(s) Subcutaneousonce a day. rotate injection sites. levothyroxine (levothyroxine 200 mcg (0.2 mg) oral tablet)1 tab(s) by mouth once a day. levothyroxine (levothyroxine 50 mcg (0.05 mg) oral tablet)1 tab(s) by mouth once a day before a meal. metoprolol (Lopressor 100 mg oral tablet)1 tab(s) by mouth two (2) times a day. rosuvastatin (rosuvastatin 20 mg oral tablet)1 tab(s) by mouth daily at bedtime. Discontinued mirabegron (Myrbetriq 50 mg oral tablet, extended release)50 Milligram by mouth two (2) times a day. sacubitril-valsartan (Entresto 24 mg-26 mg oral tablet)1 tab(s) by mouth two (2) times a day. vibegron (Gemtesa 75 mg oral tablet)1 tab(s) by mouth daily at bedtime. I have reviewed the [place] Automated Rx Reporting System (OARRS) report for this patient for refill pattern and other prescriber involvement as part of the appropriate surveillance for the provision ofacute and chronic controlled medications. The report was requested and reviewed on the date of thisentry, and was considered in the prescribing process. Follow Up Follow Up with LITA GARZA When 08/01/2023 10:30 AM EDT Why: This will be with Dr. Gardiner's nurse practitioner. Please present to [place] radiology department 1 hour prior to this visit for chest x-ray. Where: [address] [facility] [address] [facility] [place] [address]- [phone] Follow Up with LITA GARZA When 07/22/2023 08:30 AM EDT Why: This will be a TELEPHONE CALL Where: [address] [facility] [address] [facility] [place] [address]- [phone] Follow Up with [facility]. Nurse to Nurse Report: [phone] When Within 1-2 days Follow Up with JUN DOUGLAS When Within 1-2 days Where: [facility] [address] [place] [address]- Business (1) Follow Up Appointments Transfer of Care OT - Ordered -- Reason for therapy: OT, 07/19/23 11:29:00 EDT Transfer of Care PT - Ordered -- Reason for therapy: PT, 07/19/23 11:29:00 EDT Follow Up Labs/Studies Discharge Labs Transfer of Care Labwork - Ordered -- Complete blood count, Acute blood loss anemia, CBC daily and as needed, 07/19/23 11:29:00 EDT Transfer of Care Labwork - Ordered -- Basic metabolic panel, Diuretic management, BMP daily and as needed, 07/19/23 11:29:00 EDT Discharge Studies Transfer of Care Radiology - Ordered -- PA and lateral chest x-ray, Pleural effusions, Chest x-ray daily and as needed, 07/19/23 11:29:00 EDT Discharge Diet Transfer of Care Diet - Ordered -- Type of Diet: Regular Diet, Calories Permitted: 1800 kcal, 07/19/23 11:29:00 EDT Discharge Activity Transfer of Care Activity - Ordered -- Lifting Restricted less than 10 pounds May Shower, No driving x 2 weeks, no soaking in tub/swimming (may shower), 07/19/23 11:29:00 EDT Condition on Discharge Stable Discharge Disposition [facility] Information Provided To Patient This note was generated using a voice recognition system. As a result, errors are possible and common, including incorrect words, spellings, grammar, gender, phrases, and punctuation that may be out of context or that were missed in checking this note before saving. Reasonable effort is made to correct such errors, but with demands of normal work flow, many are missed. [1] Progress Note; DARRIN CAVANAUGH 07/18/2023 12:00 EDT [2] Operative Report Note; LIAT GARDINER MD 07/10/2023 10:56 EDT Digitally Signed by DEGROOTREBEKAH ALONZO on 07/19/2023 11:41 AM Digitally Signed by REBEKAH DEGROOT on 07/19/2023 11:44 AM [id number] Discharge Instructions Thank you for allowing [facility] to assist you with your healthcare needs. The following is importantdischarge information regarding your hospital visit. 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 Pat dry, no ointments/lotions/powders to incision sites Left lateral chest sutures will be removed at follow-up appointment Scheduled Follow-Up Appointments Appointment Type When With Where Contact InformationTelephone 07/22/2023 08:30 AM EDT LITA GARZA Cardiothoracic Surgery CTS OV Post Op 08/01/2023 10:30 AM LITA VAZQUEZ Cardiothoracic Surgery Follow Up Appointments Follow Up with [facility]. Nurse to Nurse Report: [phone] When Within 1-2 days Follow Up with JUN DOUGLAS When Within 1-2 days Where: [facility] [address] [facility] [address] [place] [address]- Business (1) The Following Activity and Diet Have Been Ordered for You Transfer of Care Activity - Ordered -- Lifting Restricted less than 10 pounds May Shower, No driving x 2 weeks, no soaking in tub/swimming (july shower), 07/19/23 11:29:00 EDT Transfer of Care Diet - Ordered -- Type of Diet: Regular Diet, Calories Permitted: 1800 kcal, 07/19/23 11:29:00 EDT The Following Equipment Has Been Ordered for You Discharge Home Equipment Transfer of Care BIPAP - Ordered -- Mode: BIPAP, FIO2: 40, EPAP: 8, IPAP: 15, BiPAP 15/8 with 40% FiO2 nightly and as needed, Constant Order Transfer of Care Wound Care - Ordered -- Wash left chest surgical incisions with soap and water daily using clean washcloth, pat dry, no ointments/lotions/powders to incision sites., 07/19/23 11:29:00 EDT The Following Treatments Have Been Ordered for You Discharge Labs Transfer of Care Labwork - Ordered -- Complete blood count, Acute blood loss anemia, CBC daily and as needed, 07/19/23 11:29:00 EDT Transfer of Care Labwork - Ordered -- Basic metabolic panel, Diuretic management, BMP daily and as needed, 07/19/23 11:29:00 EDT Discharge Radiology Transfer of Care Radiology - Ordered -- PA and lateral chest x-ray, Pleural effusions, Chest x-ray daily and as needed, 07/19/23 11:29:00 EDT Other Therapies Transfer of Care OT - Ordered -- Reason for therapy: OT, 07/19/23 11:29:00 EDT Transfer of Care PT - Ordered -- Reason for therapy: PT, 07/19/23 11:29:00 EDT Post Acute Orders Transfer of Care Admission Level of Care - Ordered -- Level of Care SNF, 07/19/23 11:38:57 EDT Transfer of Care BIPAP - Ordered -- Mode: BIPAP, FIO2: 40, EPAP: 8, IPAP: 15, BiPAP 15/8 with 40% FiO2 nightly and as needed, Constant Order Transfer of Care Code Status - Ordered -- Full Code, Constant Order Transfer of Care Communication Order - Ordered -- Expect less than 30 day stay., 07/19/23 11:38:57 EDT Transfer of Care Labwork - Ordered -- Complete blood count, Acute blood loss anemia, CBC daily and as needed, 07/19/23 11:29:00 EDT Transfer of Care Labwork - Ordered -- Basic metabolic panel, Diuretic management, BMP daily and as needed, 07/19/23 11:29:00 EDT Transfer of Care Orders Electronically Signed By - Ordered -- 07/19/23 11:29:00 EDT, LIAT GARDINER MD Transfer of Care Oxygen Therapy - Ordered -- Oxygen (CONTINUOUS), Mobile in the Home Portable O2, Nasal Cannula, 6 liters per minute, 12 month(s), 07/19/23 11:29:00 EDT Transfer of Care Prognosis - Ordered -- Quinn, Patient Aware: Yes Transfer of Care Rehab Potential - Ordered -- Rehab potential fair, 07/19/23 11:29:57 EDT Someone Will Contact You Regarding These Home Health Referrals No home referrals have been ordered for you. No one will call you. Allergies sulfa (Rash) Medications Please ask your primary doctor or pharmacist before taking any other medication not listed, including over the counter drugs, herbal medications, vitamins and or supplements as they may interact withyour home medications. What How Much When Why Instructions Last Dose New traMADol (traMADol 50 mg oral tablet) 0.5 tab(s) by mouth Every 12 hours as needed for Pain, scale 7-10 Acute postoperative pain Duration: 5 Days Printed Prescription Changed acetaminophen (Tylenol 325 mg oral capsule) 650 Milligram by mouth Every 4 hours as needed for Pain, scale 1-6 Changed furosemide (furosemide 10 mg/ mL injectable solution) 4 Milliliter IV Push Two (2) times a day Duration: 14 Days Printed Prescription Changed potassium chloride (potassium chloride 20 mEq oral tablet, extended release) 1 tab(s) by mouth Three (3) times a day with meals Printed Prescription Unchanged albuterol (albuterol MDI (90 mcg/ inh) CFC free inhalation aerosol) by inhalation Every 4 hours as needed for Shortness of breath or wheezing Unchanged apixaban (Eliquis 2.5 mg oral tablet) 1 tab(s) by mouth Daily at bedtime Unchanged dilTIAZem (dilTIAZem 240 mg/ 24 hours oral capsule, extended release) 1 cap by mouth Daily at bedtime Unchanged ferrous sulfate (ferrous sulfate 325 mg (65 mg elemental iron) oral delayed release tablet) 1 tab(s) by mouth Once a day Unchanged glimepiride (glimepiride 1 mg oral tablet) 1 tab(s) by mouth Once a day Take with food Unchanged insulin degludec (Tresiba FlexTouch 200 units/ mL 3 mL subcutaneous solution) 40 unit(s) Subcutaneous Once a day rotate injection sites Unchanged levothyroxine (levothyroxine 200 mcg (0.2 mg) oral tablet) 1 tab(s) by mouth Once a day Unchanged levothyroxine (levothyroxine 50 mcg (0.05 mg) oral tablet) 1 tab(s) by mouth Once a day before a meal Unchanged metoprolol (Lopressor 100 mg oral tablet) 1 tab(s) by mouth Two (2) times a day Unchanged rosuvastatin (rosuvastatin 20 mg oral tablet) 1 tab(s) by mouth Daily at bedtime What How Much When Comments Stop Taking mirabegron (Myrbetriq 50 mg oral tablet, extended release) 50 Milligram by mouth Two (2) times a day Stop Taking sacubitril-valsartan (Entresto 24 mg-26 mg oral tablet) 1 tab(s) by mouth Two (2) times a day Stop Taking vibegron (Gemtesa 75 mg oral tablet) 1 tab(s) by mouth Daily at bedtime Please take this list to your next doctor s visit. Bring all medications you take, including over the counter medications, herbals and other supplements with you to your doctor s visit. Patients and families are reminded to discard old lists and to update any records with all medication providers or retail pharmacies. Education Materials Heart-Healthy Eating Plan Heart-healthy meal planning includes: Eating less unhealthy fats. Eating more healthy fats. Making other changes in your diet. Talk with your doctor or a diet specialist (dietitian) to create an eating plan that is right for you. What is my plan? Your doctor may recommend an eating plan that includes: Total fat: % or less of total calories a day. Saturated fat: % or less of total calories a day. Cholesterol: less than mg a day. What are tips for following this plan? Cooking Avoid frying your food. Try to bake, boil, grill, or broil it instead. You can also reduce fat by: Removing the skin from poultry. Removing all visible fats from meats. Steaming vegetables in water or broth. Meal planning At meals, divide your plate into four equal parts: ? Fill one-half of your plate with vegetables and green salads. ? Fill one-fourth of your plate with whole grains. ? Fill one-fourth of your plate with lean protein foods. Eat 4 5 servings of vegetables per day. A serving of vegetables is: ? 1 cup of raw or cooked vegetables. ? 2 cups of raw leafy greens. Eat 4 5 servings of fruit per day. A serving of fruit is: ? 1 medium whole fruit. ? cup of dried fruit. ? cup of fresh, frozen, or canned fruit. ? cup of 100% fruit juice. Eat more foods that have soluble fiber. These are apples, broccoli, carrots, beans, peas, and barley. Try to get 20 30 g of fiber per day. Eat 4 5 servings of nuts, legumes, and seeds per week: ? 1 serving of dried beans or legumes equals cup after being cooked. ? 1 serving of nuts is cup. ? 1 serving of seeds equals 1 tablespoon. General information Eat more home-cooked food. Eat less restaurant, buffet, and fast food. Limit or avoid alcohol. Limit foods that are high in starch and sugar. Avoid fried foods. Lose weight if you are overweight. Keep track of how much salt (sodium) you eat. This is important if you have high blood pressure. Ask your doctor to tell you more about this. Try to add vegetarian meals each week. Fats Choose healthy fats. These include olive oil and canola oil, flaxseeds, walnuts, almonds, and seeds. Eat more omega-3 fats. These include salmon, mackerel, sardines, tuna, flaxseed oil, and ground flaxseeds. Try to eat fish at least 2 times each week. Check food labels. Avoid foods with trans fats or high amounts of saturated fat. Limit saturated fats. ? These are often found in animal products, such as meats, butter, and cream. ? These are also found in plant foods, such as palm oil, palm kernel oil, and coconut oil. Avoid foods with partially hydrogenated oils in them. These have trans fats. Examples are stick margarine, some tub margarines, cookies, crackers, and other baked goods. What foods can I eat? Fruits All fresh, canned (in natural juice), or frozen fruits. Vegetables Fresh or frozen vegetables (raw, steamed, roasted, or grilled). Green salads. Grains Most grains. Choose whole wheat and whole grains most of the time. Rice and pasta, including brown rice and pastas made with whole wheat. Meats and other proteins Lean, well-trimmed beef, veal, pork, and curtis. Chicken and turkey without skin. All fish and shellfish. Wild duck, rabbit, pheasant, and venison. Egg whites or low-cholesterol egg substitutes. Dried beans, peas, lentils, and tofu. Seeds and most nuts. Dairy Low-fat or nonfat cheeses, including ricotta and mozzarella. Skim or 1% milk that is liquid, powdered, or evaporated. Buttermilk that is made with low-fat milk. Nonfat or low-fat yogurt. Fats and oils Non-hydrogenated (trans-free) margarines. Vegetable oils, including soybean, sesame, sunflower, olive, peanut, safflower, corn, canola, and cottonseed. Salad dressings or mayonnaise made with a vegetable oil. Beverages Mineral water. Coffee and tea. Diet carbonated beverages. Sweets and desserts Sherbet, gelatin, and fruit ice. Small amounts of dark chocolate. Limit all sweets and desserts. Seasonings and condiments All seasonings and condiments. The items listed above may not be a complete list of foods and drinks you can eat. Contact a dietitian for more options. What foods should I avoid? Fruits Canned fruit in heavy syrup. Fruit in cream or butter sauce. Fried fruit. Limit coconut. Vegetables Vegetables cooked in cheese, cream, or butter sauce. Fried vegetables. Grains Breads that are made with saturated or trans fats, oils, or whole milk. Croissants. Sweet rolls. Donuts. High-fat crackers, such as cheese crackers. Meats and other proteins Fatty meats, such as hot dogs, ribs, sausage, nicloe, rib-eye roast or steak. High-fat deli meats, such as salami and bologna. Caviar. Domestic duck and goose. Organ meats, such as liver. Dairy Cream, sour cream, cream cheese, and creamed cottage cheese. Whole-milk cheeses. Whole or 2% milk that is liquid, evaporated, or condensed. Whole buttermilk. Cream sauce or high-fat cheese sauce. Yogurt that is made from whole milk. Fats and oils Meat fat, or shortening. [place] butter, hydrogenated oils, palm oil, coconut oil, palm kernel oil. Solid fats and shortenings, including nicole fat, salt pork, lard, and butter. Nondairy cream substitutes. Salad dressings with cheese or sour cream. Beverages Regular sodas and juice drinks with added sugar. Sweets and desserts Frosting. Pudding. Cookies. Cakes. Pies. Milk chocolate or white chocolate. Buttered syrups. Full-fat ice cream or ice cream drinks. The items listed above may not be a complete list of foods and drinks to avoid. Contact a dietitianfor more information. Summary Heart-healthy meal planning includes eating less unhealthy fats, eating more healthy fats, and making other changes in your diet. Eat a balanced diet. This includes fruits and vegetables, low-fat or nonfat dairy, lean protein, nuts and legumes, whole grains, and heart-healthy oils and fats. This information is not intended to replace advice given to you by your health care provider. Make sure you discuss any questions you have with your health care provider. Document Released: 09/02/2012 Document Revised: 05/08/2018 Document Reviewed: 04/11/2018 [employer] Patient Education 2020 [employer] Carbohydrate Counting for Diabetes Mellitus, Adult Carbohydrate counting is a method of keeping track of how many carbohydrates you eat. Eating carbohydrates naturally increases the amount of sugar (glucose) in the blood. Counting how many carbohydrates you eat helps keep your blood glucose within normal limits, which helps you manage your diabetes(diabetes mellitus). It is important to know how many carbohydrates you can safely have in each meal. This is different for every person. A diet and nutrition faculty member (registered dietitian) can help you make a meal plan and calculate how many carbohydrates you should have at each meal and snack. Carbohydrates are found in the following foods: Grains, such as breads and cereals. Dried beans and soy products. Starchy vegetables, such as potatoes, peas, and corn. Fruit and fruit juices. Milk and yogurt. Sweets and snack foods, such as cake, cookies, candy, chips, and soft drinks. How do I count carbohydrates? There are two ways to count carbohydrates in food. You can use either of the methods or a combination of both. Reading Nutrition Facts on packaged food The Nutrition Facts list is included on the labels of almost all packaged foods and beverages in the [place] It includes: The serving size. Information about nutrients in each serving, including the grams (g) of carbohydrate per serving. To use the Nutrition Facts: Decide how many servings you will have. Multiply the number of servings by the number of carbohydrates per serving. The resulting number is the total amount of carbohydrates that you will be having. Learning standard serving sizes of other foods When you eat carbohydrate foods that are not packaged or do not include Nutrition Facts on the label, you need to measure the servings in order to count the amount of carbohydrates: Measure the foods that you will eat with a food scale or measuring cup, if needed. Decide how many standard-size servings you will eat. Multiply the number of servings by 15. Most carbohydrate-rich foods have about 15 g of carbohydrates per serving. ? For example, if you eat 8 oz (170 g) of strawberries, you will have eaten 2 servings and 30 g of carbohydrates (2 servings x 15 g = 30 g). For foods that have more than one food mixed, such as soups and casseroles, you must count the carbohydrates in each food that is included. The following list contains standard serving sizes of common carbohydrate-rich foods. Each of theseservings has about 15 g of carbohydrates: hamburger bun or [place] muffin. oz (15 mL) syrup. oz (14 g) jelly. 1 slice of bread. 1 six-inch tortilla. 3 oz (85 g) cooked rice or pasta. 4 oz (113 g) cooked dried beans. 4 oz (113 g) starchy vegetable, such as peas, corn, or potatoes. 4 oz (113 g) hot cereal. 4 oz (113 g) mashed potatoes or of a large baked potato. 4 oz (113 g) canned or frozen fruit. 4 oz (120 mL) fruit juice. 4 6 crackers. 6 chicken nuggets. 6 oz (170 g) unsweetened dry cereal. 6 oz (170 g) plain fat-free yogurt or yogurt sweetened with artificial sweeteners. 8 oz (240 mL) milk. 8 oz (170 g) fresh fruit or one small piece of fruit. 24 oz (680 g) popped popcorn. Example of carbohydrate counting Sample meal 3 oz (85 g) chicken breast. 6 oz (170 g) brown rice. 4 oz (113 g) corn. 8 oz (240 mL) milk. 8 oz (170 g) strawberries with sugar-free whipped topping. Carbohydrate calculation 1. Identify the foods that contain carbohydrates: Rice. [place]. Milk. Strawberries. 2. Calculate how many servings you have of each food: 2 servings rice. 1 serving corn. 1 serving milk. 1 serving strawberries. 3. Multiply each number of servings by 15 servings rice x 15 g = 30 g. 1 serving corn x 15 g = 15 g. 1 serving milk x 15 g = 15 g. 1 serving strawberries x 15 g = 15 g. 4. Add together all of the amounts to find the total grams of carbohydrates eaten: 30 g + 15 g + 15 g + 15 g = 75 g of carbohydrates total. Summary Carbohydrate counting is a method of keeping track of how many carbohydrates you eat. Eating carbohydrates naturally increases the amount of sugar (glucose) in the blood. Counting how many carbohydrates you eat helps keep your blood glucose within normal limits, which helps you manage your diabetes. A diet and nutrition faculty member (registered dietitian) can help you make a meal plan and calculate how many carbohydrates you should have at each meal and snack. This information is not intended to replace advice given to you by your health care provider. Make sure you discuss any questions you have with your health care provider. Document Released: 03/04/2006 Document Revised: 09/26/2017 Document Reviewed: 08/15/2016 [employer] Patient Education 2020 [employer] Incision Care General Information about how to care for your Incision Always follow your surgeon s specific recommendations about incision care exactly. Keep incision clean and dry. Do not put salves, ointments or powder on the incision unless your surgeon has instructed you to. If you have a dressing over your incision, change it as directed by your healthcare professional Avoid touching your incision. Hands carry germs that can cause infections. When your surgeon gives you permission to shower, gently wash, DO NOT RUB your incision, with mild soap and water. You can use liquid or bar soap. Use a new/clean washcloth and towel on your incisionevery day. Avoid irritation to the incision. Wear loose fitting clothing. Do not remove the tape strips (steri strips) until told to do so. They will fall off on their own. Do not expose your incision to sunlight. After washing your hands, check your incision daily to make sure it is healing normally. The incision is staying together There is no drainage or only small amounts of clear or bloody drainage The skin around the incision may be slightly red which goes away over time You may notice some soreness, tenderness, tingling, numbness, bruising and itching around the site. Notify your Surgeon if: Your incision shows signs of an infection such as skin very painful, red, warm and/or swollen around the incision, Drainage that is foul smelling or looks like pus or If you have an elevated temperature with the above symptoms The incision begins to come apart You have large amounts of blood or fluid oozing from the incision. Make sure you have a follow-up appointment with your surgeon. Call to reschedule if you are unable to make the appointment time that was scheduled for you. Instructions: Wash your chest incision first. Wash your arm incision second. Wash your leg incisions last. Clean the rest of your body after your incisions are washed. Rinse your body well before leaving the shower. Dry gently with a clean towel. Do not use creams, lotions, powder, or salves on incisions. Please dress in clean, loose-fitting clothes. Incision Care Video Document Released: 03/04/2006 Document Revised: 02/18/2013 Document Reviewed: 03/05/2014 ExitCare Patient Information 2015 [facility], [facility]. This information is not intended to replace advicegiven to you by your health care provider. Make sure you discuss any questions you have with your health care provider. Additional Information VACCINATE! IT SAVES LIVES! Members of the community who have not yet received the COVID-19 vaccine and would like to receive it can visit one of [facility] vaccine clinics. There are many vaccine clinic locations within the [facility]. For locations and available times, please visit [email or web address].[email or web address] It is important to note that some COVID mobile vaccine clinics are held outdoors and may be canceled in rainy or stormy conditions. To learn more about pediatric vaccinations (ages 5-11), we invite you to visit the [facility] webpage. [email or web address] learn more about the COVID-19 vaccine, we invite you to visit the CDC website for a list of frequently asked questions.https://www.cdc.gov/coronavirus/2019-ncov/vaccines/faq.html [facility] Patient Portal Access Instructions: Stay connected with your healthcare team and access your personal medical information anytime with the [facility] Patient Portal. Please follow the directions below to create your [employer] account: 1.Access the email account you provided upon registration to the hospital/physician office.2.Look for an invitation email from [facility].3.Open the email and access the invitation link: AcceptInvitation to [facility].4.Fill in the required villavicencio to create your account. To access your account, visit [employer]/Huddle[employer]hart. Click the blue button labeled Access Patient Portal and then log in with the username and password that you created in the steps above. You will be able to view your test results, lab results, a summary of your visits, upcoming appointments and more. There is also a convenient messaging option where you can send secure messages to your p rovider. In addition, you will have the ability to download any documents or summaries to your computer and/or send the information securely to a physician. Remember that your healthcare information is confidential, so carefully consider who you will allowto register on the [facility] Patient Portal for access to your information. You can also access the [facility] Patient Portal on the [facility] cristopher. Simply click on Patient Portal and then log into your account. If you would like to receive a full copy of your medical records, please contact the [facility] Medical Records Department by calling [phone], Saturday through Saturday between 8 a.m. and 4:30 p.m. HOW TO SAFELY DISPOSE OF PRESCRIPTION MEDICATIONS Please use one of the following methods to safely dispose of your unused medications. 1.Use a drug disposal kit: the drug disposal pouch allows you to safely discard your old and unuseddrugs. Ask your nurse to give you one when you are discharged.2.Visit a local take-back location: Many local pharmacies and police departments have programs that collect old and unwanted prescriptiondrugs. Call your local pharmacy or go to http://[employer]/5D3Xo4r to find one close to you.3.Make use of household items: Use cat litter or old coffee grounds to dispose medications if other options arenot available. Mix your drugs with these household products, seal them in an airtight container andthrow it into the garbage. Call [facility]: [phone] to be sure your drugs can be disposed of in this way. Some medicines may require a different approach.4.Never flush your medications down the toilet. IF YOU HAVE BEEN PRESCRIBED AN OPIOID FOR PAIN If you have been prescribed an opioid (such as hydrocodone, oxycodone or morphine), it is critical to understand the possible side effects and risks of opioid pain medications. Even when taken as directed, opioids can have several side effects including: Tolerance, meaning you might need to take more of a medication for the same pain relief. Nausea, vomiting and/or constipation. Sleepiness, dizziness, dry mouth, confusion, depression or itching. Physical dependence, meaning you have withdrawal symptoms when a medication is stopped, can develop within a few days. KNOW YOUR RESPONSIBILITIES It is important to know exactly how much and how often to take the opioid pain medications you are prescribed. Never take opioids in higher amounts or more often than prescribed. Do not combine opioids with alcohol or other drugs that cause drowsiness, such as benzodiazepines, also known as benzos, including diazepam and alprazolam, muscle relaxants or sleep aids. Never sell or share prescription opioids. This is illegal. Store opioids in a secure place and out of reach of others (including children, family, friends and visitors). The last page of this document has been signed and retained as a CHART COPY. Signatures Patient Education Materials Heart-Healthy Eating Plan, Vjks-kg-Unpf Carbohydrate Counting for Diabetes Mellitus, Adult 8- [facility] Care (01/2022) (CUSTOM) Medication Leaflets My discharge plan and instructions have been reviewed and explained to me and IGONZALO LEONA J understand my current condition and have read and understand these discharge instructions. I have received a written copy of the plan/instructions. If I have questions, I am aware that I should contact my doctor. 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 Tolerating oral intake. No chest pain or shortness of breath. No nausea, vomiting, diarrhea. Objective Vitals and Measurements T: 37.0 C (Oral) TMIN: 36.4 C (Axillary) TMAX: 37.1 C (Oral) HR: 120(Apical) RR: 20 BP: 147/92 SpO2: 95% WT: 117.5 kg Intake and Output 7AM Yesterday to 7AM Today Intake and Output (Last 24 hours) Intake Oral Intake 600.00 Output Urinary Catheter Output: 1450.00 Stool Count 1.00 Urine Count 3.00 Diaper Count 1.00 Total Summary Total Intake 600.00 Total Output 1450.00 Fluid Balance -850.00 Physical Exam Physical Exam General: Alert, appropriate and awake, oriented to time, people and place Skin: No rash. Warm, Dry, Intact HEENT: Head is normocephalic and atraumatic. No lesions. Pupils equal in size. Extraocular movements within normal limits. Nose: No septal deviation. Mouth: Oropharynx mucosa is without lesion. Neck: Supple. No lymphadenopathy, thyromegaly noted. Lungs: Bilaterally clear/diminished breath sounds with no crepitation or wheeze. Unlabored Cardiovascular: Heart is regular rhythm, S1S2, No extra-audible heart tones Abdomen: Abdomen is soft, nontender. Bowel sounds positive all four quadrants. Extremities: No clubbing, cyanosis or edema. Peripheral pulses palpable. No calf tenderness. Adequate peripheral circulation. Neurological: Following simple commands, moving all extremities. Weight Current Weight Dosing Weight: 122.4 kg (07/10/23) Current Weight: 117.5 kg (07/19/23) Current Weight: 120.7 kg (07/18/23) Medications Medications (29) Active Scheduled: (21) acetaminophen 325 mg Tablet 650 mg 2 tab(s), Oral, q6h albuterol - ipratropium 2.5 mg-0.5 mg/3 mL Inhal Ingris UD 3 mL, Inhalation, QIDRT apixaban 2.5 mg tablet 2.5 mg 1 tab(s), Oral, qHS clotrimazole topical 1% Cream 1 cristopher, Topical, BID diltiazem 240 mg/24 hours ER capsule 240 mg 1 cap(s), Oral, qDay docusate sodium 100 mg Capsule 100 mg 1 cap(s), Oral, TID ferrous sulfate 325 mg Tablet 325 mg 1 tab(s), Oral, qDay furosemide 40 mg/4 mL vial 40 mg 4 mL, IV Push, q12h insulin glargine 22 unit(s) 0.22 mL, Subcutaneous (INT), qHS insulin lispro 100 units/mL Soln (3 mL) 6 unit(s) 0.06 mL, Subcutaneous, with breakfast insulin lispro 100 units/mL Soln (3 mL) 6 unit(s) 0.06 mL, Subcutaneous, with lunch insulin lispro 100 units/mL Soln (3 mL) 6 unit(s) 0.06 mL, Subcutaneous, with supper insulin lispro 100 units/mL Soln (3 mL) Give 0-15 units/dose, Subcutaneous, TIDAC levothyroxine 200 mcg Tablet 200 mcg 1 tab(s), Oral, qDay levothyroxine 50 mcg tablet 50 mcg 1 tab(s), Oral, qDayAC lidocaine patch REMOVAL 1 EA, Miscellaneous, q24h lidocaine topical 4% patch 1 patch(es), Transdermal, q24h metoprolol succinate 100 mg ER tablet 100 mg 1 tab(s), Oral, BID pantoprazole 40 mg EC tablet 40 mg 1 tab(s), Oral, qDayAC potassium chloride 20 mEq ER tablet 20 mEq 1 tab(s), Oral, TIDM rosuvastatin 20 mg tablet 20 mg 1 tab(s), Oral, qHS Continuous: (0) PRN: (8) acetaminophen 325 mg Tablet 650 mg 2 tab(s), Oral, q4h albuterol - ipratropium 2.5 mg-0.5 mg/3 mL Inhal Ingris UD 3 mL, Inhalation, q2hRT albuterol 0.083% Soln UD (2.5mg/3 mL) 2.5 mg 3 mL, Inhalation, q4hRT bisacodyl 10 mg Suppository 10 mg 1 supp, Rectal, Once dextrose 50% Solution Disp syringe 50 mL 12.5 gram(s) 25 mL, IV Push, AsDirected ondansetron 2 mg/ 1 mL 2 mL INJ 4 mg 2 mL, IV Push, q4h polyethylene glycol 3350 - UD packet 17 gram(s) 15 mL, Oral, BID tramadol 50 mg Tablet 25 mg 0.5 tab(s), Oral, q12h Lab Results 07/18 04:19 Glucose Level: 149 H Sodium Level: 136 Potassium Level: 3.6 BUN: 62.0 H Creatinine Lvl (s): 1.62 H 07/17 02:53 Glucose Level: 141 H Sodium Level: 138 Potassium Level: 3.2 L BUN: 59.0 H Creatinine Lvl (s): 1.55 H EKG No qualifying data available. Assessment/Plan Type 2 diabetes Recurrent pleural effusion Acute hypoxic respiratory failure Hypertension Hyperlipidemia Hypothyroidism A-fib COPD Type 2 diabetes, currently on Humalog 6 units 3 times daily, sliding scale insulin, Lantus 22 unitsnightly. On 40 units of Lantus at home and glimepiride. Blood sugars have been stable. Recommend tocontinue current regimen and discharge on home medications. Will need outpatient follow-up with PCP. Recurrent left pleural effusion, management per primary team Acute hypoxic respiratory failure, on 6 L nasal cannula, management per primary team Hypertension, blood pressure stable Hyperlipidemia, on statin Hypothyroidism, on levothyroxine A-fib, on Eliquis COPD, not in exacerbation HFpEF, undergoing diuresis per primary team Hospitalist team will sign off, discharge recommendations as above. Discussed with Dr. Reddy Time Spent Total time spent reviewing labs, diagnostics, evaluating the patient, and medical decision makin minutes Digitally Signed by FARRAH CHANDLER on 07/19/2023 10:59 AM [id number] Note ORIGINAL EXAMINATION: ONE XRAY VIEW OF THE CHEST07/19/2023 6:20 am COMPARISON: 07/18/2023 HISTORY: ORDERING SYSTEM PROVIDED HISTORY: Reason for Exam: pleural effusion FINDINGS: The cardiomediastinal silhouette is stable. Interval improved aeration. Interval improvement in right pleural effusion now small with adjacent airspace disease. No significant interval change in small to moderate left pleural effusion with adjacent airspace disease. No visible pneumothorax. Surgical clips noted within the right axilla. No acute osseous abnormality. IMPRESSION: Interval improved aeration. Interval improved right pleural effusion now small with adjacent airspace disease. Unchanged small to moderate left pleural effusion with adjacent airspace disease. I have personally reviewed the images of this examination, and agree with the resident's findings and interpretation. Interpreted by: Asif Perry MD Preliminary Report By: Carmela More Electronically signed By Asif Perry MD Dictated Date: 07/19/2023 6:51:29 AM Prelim Date: 07/19/2023 6:54:41 AM Sign Date: 07/19/2023 7:22:04 AM Ordering Provider: [facility]05-02-2024 Note Date of Service 07/18/2023 Chief Complaint POD #8 This is an 83-year-old female with multiple comorbidities including congestive heart failure, atrial fibrillation (on Eliquis), hypertension, hyperlipidemia, hypothyroidism, on PRN home oxygen who was referred for possible surgical management of recurrent left pleural effusion. The patient states that her left pleural effusion was drained multiple times, and all the cytology results were negative. The patient claims that she has pneumonia few months back that she recovered from. [facility] and the patient is on heart failure management. Patient came in yesterday 07/10/2023 and had a left minithoracotomy with lysis of adhesions and mechanical and chemical pleurodesis with Dr. Gardiner. She tolerated the procedure well, was transferred to the CV SICU in stable condition, on Simple O2 mask and later weaned to nasal cannula. POD #1: Overnight her SaO2's dropped to the high 80s low 90s, currently she is on 8 L high flow nasal cannula with SaO2 91 to 93%. Lasix IV today, wean O2 as able. Maintain chest tubes to waterseal. Transfer to stepdown unit. POD #2: Patient became hypoxic overnight with SpO2 of 87% on 12 L nasal cannula. Rapid response called. ABG at that time revealed a pH of 7.33, pCO2 46, pO2 59. Chest x-ray had showed a small residual left pneumothorax and small bilateral pleural effusions with adjacent atelectasis/consolidation. Patient was transferred back to the cardiovascular ICU and placed on high flow nasal cannula. Pulmonary consulted. Currently on high flow nasal cannula, 60 L, 85% FiO2 with SpO2 96 to 97%. Will obtain echocardiogram. In atrial fibrillation. Eliquis remains on hold. Consult cardiology. Discontinue left anterior chest tube. BUN and creatinine 40 and 2.54. Change Lasix to 40 mg IV twice daily. Postop day #3. Lasix wasplaced on held yesterday secondary to increased creatinine. Renal consulted. Albumin every 8 hours x 6 doses started. Will hold off on diuresis for today yet. Currently on 10 L high flow salter nasalcannula. DuoNebs added. Pulmonary following. To wear BiPAP throughout the day as well as at bedtime. Continue chest tube to waterseal today. Echo still pending. Postop day #4. More alert today. Continue albumin, Lasix added. Nephrology continues to follow. Midodrine added. Continue chest tube to waterseal. Remains on high flow salter nasal cannula at 10 L. BiPAP at night and throughout the day astolerated. Echocardiogram discontinued per request of Dr. Gardiner. POD #5 continue Lasix, continue chest tube for now and monitoring of drainage. Keep in ICU. POD #6 patient's O2 needs are up to 12 Lsalter high flow nasal cannula. Patient wore her BiPAP sporadically overnight for about 1 to 2 hours at a time. She is currently up in the chair, needs further diuresis but will have nephrology decide. Chest tube to be discontinued today. Will continue to keep in ICU for now due to her O2 needs. Postop day #7. Continue to wean O2 as able, continue aggressive pulmonary toilet. Continue diuresis. Metolazone 5 mg p.o. x 1 today. Midodrine discontinued yesterday per cardiology. On Toprol and Cardizem. BUN/creatinine stable. Postop day #8 creatinine decreased to 1.55 BUN slightly increased to 59, Lasix increased to 40 mg IV every 12 hours. KCl 20 mill equivalents 3 times daily. High flow nasal cannula weaned to 5 L. Subjective No complaints. States she only has pain at her incision site with coughing. Feels her breathing is better than yesterday. Denies nausea. Had a BM yesterday. Objective Vitals and Measurements T: 37.1 C (Oral) TMIN: 36.6 C (Oral) TMAX: 37.2 C (Oral) HR: 102(Monitored) RR: 20 BP: 133/87 SpO2: 96% WT: 120.7 kg Intake and Output 7AM Yesterday to 7AM Today Intake and Output (Last 24 hours) Intake Oral Intake 1520.00 Supplement Intake 120.00 Output Urine Voided 1650.00 Urinary Catheter Output: 650.00 Stool Count 1.00 Urine Count 1.00 Diaper Count 1.00 Total Summary Total Intake 1640.00 Total Output 2300.00 Fluid Balance -660.00 Physical Exam General: Awake, sitting up in the chair. Hard of hearing. Alert and oriented. On oxygen via nasal cannula. No apparent distress Heart: Irregularly irregular, normal S1, S2. No rubs or murmurs Lungs: Nonlabored, easy and even. Lung sounds are clear bilaterally with diminished left base and inspiratory fine crackles left base. Dry, nonproductive cough. Abdomen: Soft and rounded, nontender. Bowel sounds present. Extremities: Warm and well-perfused, 2+ pitting edema bilateral lower extremities left greater thanright. Incisions: Left thoracoscopic incision open to air and well-approximated. No redness or drainage. Former chest tube sites with suture no redness or drainage. Weight Current Weight Dosing Weight: 122.4 kg (07/10/23) Current Weight: 120.7 kg (07/18/23) Current Weight: 122.7 kg (07/15/23) Medications Medications (29) Active Scheduled: (21) acetaminophen 325 mg Tablet 650 mg 2 tab(s), Oral, q6h albuterol - ipratropium 2.5 mg-0.5 mg/3 mL Inhal Ingris UD 3 mL, Inhalation, QIDRT apixaban 2.5 mg tablet 2.5 mg 1 tab(s), Oral, qHS clotrimazole topical 1% Cream 1 cristopher, Topical, BID diltiazem 240 mg/24 hours ER capsule 240 mg 1 cap(s), Oral, qDay docusate sodium 100 mg Capsule 100 mg 1 cap(s), Oral, TID ferrous sulfate 325 mg Tablet 325 mg 1 tab(s), Oral, qDay furosemide 40 mg/4 mL vial 40 mg 4 mL, IV Push, q12h insulin glargine 22 unit(s) 0.22 mL, Subcutaneous (INT), qHS insulin lispro 100 units/mL Soln (3 mL) 6 unit(s) 0.06 mL, Subcutaneous, with breakfast insulin lispro 100 units/mL Soln (3 mL) 6 unit(s) 0.06 mL, Subcutaneous, with lunch insulin lispro 100 units/mL Soln (3 mL) 6 unit(s) 0.06 mL, Subcutaneous, with supper insulin lispro 100 units/mL Soln (3 mL) Give 0-15 units/dose, Subcutaneous, TIDAC levothyroxine 200 mcg Tablet 200 mcg 1 tab(s), Oral, qDay levothyroxine 50 mcg tablet 50 mcg 1 tab(s), Oral, qDayAC lidocaine patch REMOVAL 1 EA, Miscellaneous, q24h lidocaine topical 4% patch 1 patch(es), Transdermal, q24h metoprolol succinate 100 mg ER tablet 100 mg 1 tab(s), Oral, BID pantoprazole 40 mg EC tablet 40 mg 1 tab(s), Oral, qDayAC potassium chloride 20 mEq ER tablet 20 mEq 1 tab(s), Oral, TIDM rosuvastatin 20 mg tablet 20 mg 1 tab(s), Oral, qHS Continuous: (0) PRN: (8) acetaminophen 325 mg Tablet 650 mg 2 tab(s), Oral, q4h albuterol - ipratropium 2.5 mg-0.5 mg/3 mL Inhal Ingris UD 3 mL, Inhalation, q2hRT albuterol 0.083% Soln UD (2.5mg/3 mL) 2.5 mg 3 mL, Inhalation, q4hRT bisacodyl 10 mg Suppository 10 mg 1 supp, Rectal, Once dextrose 50% Solution Disp syringe 50 mL 12.5 gram(s) 25 mL, IV Push, AsDirected ondansetron 2 mg/ 1 mL 2 mL INJ 4 mg 2 mL, IV Push, q4h polyethylene glycol 3350 - UD packet 17 gram(s) 15 mL, Oral, BID tramadol 50 mg Tablet 25 mg 0.5 tab(s), Oral, q12h Lab Results 07/17 02:53 Glucose Level: 141 H Sodium Level: 138 Potassium Level: 3.2 L BUN: 59.0 H Creatinine Lvl (s): 1.55 H 07/16 06:14 Glucose Level: 131 H Sodium Level: 139 Potassium Level: 3.8 BUN: 56.0 H Creatinine Lvl (s): 1.63 H Imaging Results and Diagnostics (07/18/2023 05:51 EDT XR Chest 1 View) FINDINGS: Stable cardiomegaly. Atherosclerotic calcification of the aorta. Small to moderate, left greater than right, pleural effusions with adjacent bibasilar airspace disease. Prominent interstitial markings bilaterally. No visible pneumothorax. A portion of the right costophrenic angle is excluded from the field of view. No acute osseous abnormality. IMPRESSION: No significant interval change in small to moderate bilateral pleural effusions with adjacent airspace disease. Prominent interstitial markings bilaterally may reflect congestion/edema with developing infectious or inflammatory process not excluded. [1] EKG EKG - Completed -- 07/17/23 19:57:00 EDT Assessment/Plan 1. Recurrent left pleural effusion s/p left minithoracotomy, pleural lysis of adhesions, a combination of mechanical and chemical pleurodesis 07/10/2023 chest tube removed. 2. Hypoxia Remains on high flow salter nasal cannula weaned to 5 L currently BiPAP in the at bedtime And for a few hours throughout the day Continue diuresis Continue DuoNebs Encourage aggressive pulmonary toilet Pulmonary signed off for now. Continue current treatment. 3. HTN (hypertension) Blood pressure 115/103-145/72 On Toprol XL 100 mg BID and Cardizem CD 240 mg daily 4. Hyperlipidemia On rosuvastatin 5. Hypothyroidism Levothyroxine 6. CHF (congestive heart failure) Continue to diurese 7. Atrial fibrillation In atrial fibrillation with rate controlled On Toprol and Cardizem Eliquis as at home Cardiology following 8. Diabetes Glucose 141-193 Patient is on scheduled insulin as well as sliding scale. [place] inpatient endocrinology assistance team following 9. COPD (chronic obstructive pulmonary disease) 10. Chronic kidney disease (CKD) BUN 59/creatinine 1.55 Continue to diurese Nephrology following 11. On home oxygen therapy 12. Breast cancer Continue diuresis Lasix 40 mg IV every 12 hours KCl 20 mill equivalents p.o. 3 times daily Wean O2 maintaining parameters Increase activity as tolerated, continue aggressive pulmonary toilet BMP and chest x-ray in a.m. Patient seen and discussed with Dr. Gardiner [1] XR Chest 1 View; ASIF PERRY MD 07/18/2023 05:51 EDT Digitally Signed by DARRIN CAVANAUGH on 07/18/2023 12:34 PM [id number] Nephrology Progress note Date of Service - Subjective resting Objective Vitals and Measurements T: 36.6 C (Oral) TMIN: 36.6 C (Oral) TMAX: 37.2 C (Oral) HR: 108 RR: 20 BP: 145/72 SpO2: 95% WT: 120.7 kg Intake and Output 7AM Yesterday to 7AM Today Intake and Output (Last 24 hours) Intake Oral Intake 1400.00 Supplement Intake 120.00 Output Urine Voided 2350.00 Urinary Catheter Output: 650.00 Stool Count 1.00 Urine Count 1.00 Diaper Count 1.00 Total Summary Total Intake 1520.00 Total Output 3000.00 Fluid Balance -1480.00 Physical Exam General: lesss sob HEENT: Icterus-; Pallor + Neck: No swelling. JVD normal. Chest: Chest equal in expansion, and diminished Heart: s1s2 heard. regular. No murmur/rub appreciated. Abdomen: Soft. Nondistended. Nontender. Bowel sounds heard. Neuro: asterexis-; sensation b/l intact. Skin: rash-; ecchymosis - Musculoskeletal: joint effusion -; cyanosis-; lower extremitity edema: + Genitourinary/rectal: FMS: - fernández:- Breast: deferred Weight Current Weight Dosing Weight: 122.4 kg (07/10/23) Current Weight: 120.7 kg (07/18/23) Current Weight: 122.7 kg (07/15/23) Medications Medications (29) Active Scheduled: (21) acetaminophen 325 mg Tablet 650 mg 2 tab(s), Oral, q6h albuterol - ipratropium 2.5 mg-0.5 mg/3 mL Inhal Ingris UD 3 mL, Inhalation, QIDRT apixaban 2.5 mg tablet 2.5 mg 1 tab(s), Oral, qHS clotrimazole topical 1% Cream 1 cristopher, Topical, BID diltiazem 240 mg/24 hours ER capsule 240 mg 1 cap(s), Oral, qDay docusate sodium 100 mg Capsule 100 mg 1 cap(s), Oral, TID ferrous sulfate 325 mg Tablet 325 mg 1 tab(s), Oral, qDay furosemide 40 mg/4 mL vial 40 mg 4 mL, IV Push, q12h insulin glargine 22 unit(s) 0.22 mL, Subcutaneous (INT), qHS insulin lispro 100 units/mL Soln (3 mL) 6 unit(s) 0.06 mL, Subcutaneous, with breakfast insulin lispro 100 units/mL Soln (3 mL) 6 unit(s) 0.06 mL, Subcutaneous, with lunch insulin lispro 100 units/mL Soln (3 mL) 6 unit(s) 0.06 mL, Subcutaneous, with supper insulin lispro 100 units/mL Soln (3 mL) Give 0-15 units/dose, Subcutaneous, TIDAC levothyroxine 200 mcg Tablet 200 mcg 1 tab(s), Oral, qDay levothyroxine 50 mcg tablet 50 mcg 1 tab(s), Oral, qDayAC lidocaine patch REMOVAL 1 EA, Miscellaneous, q24h lidocaine topical 4% patch 1 patch(es), Transdermal, q24h metoprolol succinate 100 mg ER tablet 100 mg 1 tab(s), Oral, BID pantoprazole 40 mg EC tablet 40 mg 1 tab(s), Oral, qDayAC potassium chloride 20 mEq ER tablet 20 mEq 1 tab(s), Oral, TIDM rosuvastatin 20 mg tablet 20 mg 1 tab(s), Oral, qHS Continuous: (0) PRN: (8) acetaminophen 325 mg Tablet 650 mg 2 tab(s), Oral, q4h albuterol - ipratropium 2.5 mg-0.5 mg/3 mL Inhal Ingris UD 3 mL, Inhalation, q2hRT albuterol 0.083% Soln UD (2.5mg/3 mL) 2.5 mg 3 mL, Inhalation, q4hRT bisacodyl 10 mg Suppository 10 mg 1 supp, Rectal, Once dextrose 50% Solution Disp syringe 50 mL 12.5 gram(s) 25 mL, IV Push, AsDirected ondansetron 2 mg/ 1 mL 2 mL INJ 4 mg 2 mL, IV Push, q4h polyethylene glycol 3350 - UD packet 17 gram(s) 15 mL, Oral, BID tramadol 50 mg Tablet 25 mg 0.5 tab(s), Oral, q12h Lab Results 07/17 02:53 Glucose Level: 141 H Sodium Level: 138 Potassium Level: 3.2 L BUN: 59.0 H Creatinine Lvl (s): 1.55 H 07/16 06:14 Glucose Level: 131 H Sodium Level: 139 Potassium Level: 3.8 BUN: 56.0 H Creatinine Lvl (s): 1.63 H EKG EKG - Completed -- 07/17/23 19:57:00 EDT Assessment/Plan Atrial fibrillation Breast cancer CHF (congestive heart failure) Chronic kidney disease (CKD) COPD (chronic obstructive pulmonary disease) Diabetes HTN (hypertension) Hyperlipidemia Hypothyroidism Hypoxia On home oxygen therapy Recurrent left pleural effusion s/p left minithoracotomy, pleural lysis of adhesions, a combinationof mechanical and chemical pleurodesis 07/10/2023 Time Spent Acute kidney injury on chronic kidney disease I suspect baseline creatinine 1.7 Pleural effusion Hypotension Hypoxia A-fib atrial fibrillation plan Renal functions are steady overall however she is still short of breath. Renal functionsMay improvefurther if there is a significant mild chronic venous congestion and cardiorenal component here. OnLasix every 12 will continue the same for now. [1] Progress Note; SOURAV VAZ MD 07/16/2023 09:01 EDT Digitally Signed by SOURAV VAZ MD on 07/18/2023 10:59 AM [facility] [id number] Note Date of Service 07-18-23 Reason for Consultation Admission From: Home Consult Skin Team re: Pressure Staging - Ordered -- 07/18/23 0:11:29 EDT Skin Team Findings Vitals and Measurements T: 36.6 C (Oral) TMIN: 36.6 C (Oral) TMAX: 37.2 C (Oral) HR: 111(Apical) HR: 111(Monitored) RR: 18 BP: 145/72 SpO2: 94% WT: 120.7 kg Pressure Area Details No pressure injuries noted at this time. ------Incision/Wound------ Buttock Right Upper - Incision, Wound Dressing/Activity: Open to air Buttock Right Upper - Incision, Wound Surrounding Tissue: Normal Buttock Right Upper - Non-Pressure Ulcer Type: Other: open nodule Buttock Right Upper - Skin Abnormality Color: Red Buttock Right Upper - Skin Abnormality Pattern: Raised Buttock Right Upper - Wound Associated Pain: None Buttock Right Upper - Wound Exudate Amount: scant Buttock Right Upper - Wound Exudate Odor: None Buttock Right Upper - Wound Exudate Type: Serous Buttock Right Upper - Wound Status: No complications Patient states area has been present for an extended period. No itching and no pain. Chest Left Inferior - Incision, Wound Cleansing: Cleaned with normal saline Chest Left Inferior - Incision, Wound Dressing/Activity: Open to air Chest Left Inferior - Skin Abnormality Type: Procedure site Chest Left Inferior - Wound Edge: Sutured Chest Left Inferior - Wound Exudate Amount: Small Chest Left Inferior - Wound Exudate Odor: None Chest Left Inferior - Wound Exudate Type: Serous Chest Left Lateral - Incision, Wound Dressing/Activity: Open to air Chest Left Lateral - Skin Abnormality Type: Procedure site Chest Left Lateral - Wound Edge: Glued Chest Left Lateral - Wound Exudate Amount: None Chest Left Lateral - Wound Exudate Odor: None Chest Left Lateral - Wound Status: No complications Chest Left Superior - Incision, Wound Cleansing: Cleaned with normal saline Chest Left Superior - Incision, Wound Dressing/Activity: Dressing Applied Chest Left Superior - Skin Abnormality Color: Yellow Chest Left Superior - Skin Abnormality Type: Procedure site Chest Left Superior - Wound Edge: Sutured Chest Left Superior - Wound Exudate Amount: Moderate Chest Left Superior - Wound Exudate Odor: None Chest Left Superior - Wound Exudate Type: Seropurulent Forearm Left - Incision, Wound Cleansing: Cleaned with normal saline Forearm Left - Incision, Wound Dressing/Activity: Dressing Applied Forearm Left - Skin Abnormality Color: [place], Red Forearm Left - Skin Abnormality Type: Tear Forearm Left - Wound Exudate Amount: Scant Forearm Left - Wound Exudate Odor: None Forearm Left - Wound Exudate Type: Sanguineous Assessments and Recommendations ------Assessments------ Current Skin/Wound Interventions: Hospital bed Present For Wound Observation: Nurse ------Recommendations------ Recommended Skin/Wound Interventions: Seat cushion, Turn and position system, Turn and reposition every 2 hours, Other: Transparent dressing to left forearm. Gauze dressing to superior left chest tube site. Lotion to BLE. Education No qualifying data available. Problem List/Past Medical History Ongoing Atrial fibrillation Breast cancer CHF (congestive heart failure) Chronic kidney disease (CKD) COPD (chronic obstructive pulmonary disease) Diabetes HTN (hypertension) Hyperlipidemia Hypothyroidism Hypoxia On home oxygen therapy Pulmonary hypertension Recurrent left pleural effusion Historical No qualifying data Digitally Signed by Dian Strickland RN on 07/18/2023 10:41 AM [facility] [id number] Pulmonary Progress note Date of Service 07/18/2023 Chief Complaint This is an 83-year-old female with a past medical history of hypertension, atrial fibrillation, HFpEF, COPD, multifactorial pulmonary hypertension, former smoker on nocturnal oxygen with unclear rate, with hyperlipidemia, hypothyroidism, diabetes, recurrent left pleural effusions status post multiple thoracenteses who presented [facility] 07[facility] for an elective LVAD/minithoracotomy/decortication and underwent mechanical and chemical pleurodesis on 07/10/[address] Gardiner. Postoperatively, the patient was hypoxemic requiring return to the [facility] SICU and placed on high flow nasalcannula. Chest tubes in place. Chest tube has since been removed. Last 24 hours: on 5L. Ambulating with assistance. No pain limiting breathing. net negative fluid balance. Objective Vitals and Measurements T: 36.6 C (Oral) TMIN: 36.6 C (Oral) TMAX: 37.2 C (Oral) HR: 111(Apical) HR: 111(Monitored) RR: 18 BP: 145/72 SpO2: 94% WT: 120.7 kg Intake and Output 7AM Yesterday to 7AM Today Intake and Output (Last 24 hours) Intake Oral Intake 1400.00 Supplement Intake 120.00 Output Urine Voided 2350.00 Urinary Catheter Output: 650.00 Stool Count 2.00 Urine Count 1.00 Diaper Count 1.00 Total Summary Total Intake 1520.00 Total Output 3000.00 Fluid Balance -1480.00 Physical Exam HEENT: Oral mucosa is pink and moist Eyes: Pupils equal and reactive. Neck: No JVD no adenopathy. Heart: Regular rate and rhythm Lungs: Diminished breath sounds bilaterally. No wheezes. Chest wall: Moving symmetrically with respiration. Abdomen: Soft, nondistended, no organomegaly, no tenderness no rigidity Lower extremities: trace edema Neuro: Alert follows command, moves all 4 extremities, Patient is sitting up in a chair. Weight Current Weight Dosing Weight: 122.4 kg (07/10/23) Current Weight: 120.7 kg (07/18/23) Current Weight: 122.7 kg (07/15/23) Medications Medications (29) Active Scheduled: (21) acetaminophen 325 mg Tablet 650 mg 2 tab(s), Oral, q6h albuterol - ipratropium 2.5 mg-0.5 mg/3 mL Inhal Ingris UD 3 mL, Inhalation, QIDRT apixaban 2.5 mg tablet 2.5 mg 1 tab(s), Oral, qHS clotrimazole topical 1% Cream 1 cristopher, Topical, BID diltiazem 240 mg/24 hours ER capsule 240 mg 1 cap(s), Oral, qDay docusate sodium 100 mg Capsule 100 mg 1 cap(s), Oral, TID ferrous sulfate 325 mg Tablet 325 mg 1 tab(s), Oral, qDay furosemide 40 mg/4 mL vial 40 mg 4 mL, IV Push, q12h insulin glargine 22 unit(s) 0.22 mL, Subcutaneous (INT), qHS insulin lispro 100 units/mL Soln (3 mL) 6 unit(s) 0.06 mL, Subcutaneous, with breakfast insulin lispro 100 units/mL Soln (3 mL) 6 unit(s) 0.06 mL, Subcutaneous, with lunch insulin lispro 100 units/mL Soln (3 mL) 6 unit(s) 0.06 mL, Subcutaneous, with supper insulin lispro 100 units/mL Soln (3 mL) Give 0-15 units/dose, Subcutaneous, TIDAC levothyroxine 200 mcg Tablet 200 mcg 1 tab(s), Oral, qDay levothyroxine 50 mcg tablet 50 mcg 1 tab(s), Oral, qDayAC lidocaine patch REMOVAL 1 EA, Miscellaneous, q24h lidocaine topical 4% patch 1 patch(es), Transdermal, q24h metoprolol succinate 100 mg ER tablet 100 mg 1 tab(s), Oral, BID pantoprazole 40 mg EC tablet 40 mg 1 tab(s), Oral, qDayAC potassium chloride 20 mEq ER tablet 20 mEq 1 tab(s), Oral, TIDM rosuvastatin 20 mg tablet 20 mg 1 tab(s), Oral, qHS Continuous: (0) PRN: (8) acetaminophen 325 mg Tablet 650 mg 2 tab(s), Oral, q4h albuterol - ipratropium 2.5 mg-0.5 mg/3 mL Inhal Ingris UD 3 mL, Inhalation, q2hRT albuterol 0.083% Soln UD (2.5mg/3 mL) 2.5 mg 3 mL, Inhalation, q4hRT bisacodyl 10 mg Suppository 10 mg 1 supp, Rectal, Once dextrose 50% Solution Disp syringe 50 mL 12.5 gram(s) 25 mL, IV Push, AsDirected ondansetron 2 mg/ 1 mL 2 mL INJ 4 mg 2 mL, IV Push, q4h polyethylene glycol 3350 - UD packet 17 gram(s) 15 mL, Oral, BID tramadol 50 mg Tablet 25 mg 0.5 tab(s), Oral, q12h Lab Results 07/17 02:53 Glucose Level: 141 H Sodium Level: 138 Potassium Level: 3.2 L BUN: 59.0 H Creatinine Lvl (s): 1.55 H 07/16 06:14 Glucose Level: 131 H Sodium Level: 139 Potassium Level: 3.8 BUN: 56.0 H Creatinine Lvl (s): 1.63 H EKG EKG - Completed -- 07/17/23 19:57:00 EDT Assessment/Plan Atrial fibrillation Breast cancer CHF (congestive heart failure) Chronic kidney disease (CKD) COPD (chronic obstructive pulmonary disease) Diabetes HTN (hypertension) Hyperlipidemia Hypothyroidism Hypoxia On home oxygen therapy Recurrent left pleural effusion s/p left minithoracotomy, pleural lysis of adhesions, a combinationof mechanical and chemical pleurodesis 07/10/2023 1. Acute postoperative hypoxemia at large due to bilateral extensive atelectasis. some volume overload. 2. Recurrent left-sided pleural effusion status post minithoracotomy with chemical and mechanical pleurodesis. 3. SABRINA on suspected CKD improving. 4. History of congestive heart failure with preserved LV systolic function. Atrial fibrillation. 5. Diabetes mellitus type 2 6. COPD without exacerbation. 7. Obesity, probable obstructive sleep apnea. 8. History of hypertension. Plan: 1. During the day patient has been weaned to 5L. Incentive spirometry effort and volumes have improved. 2. BiPAP 15/8 cmH2O at night and as needed. This will help with recruitment. Wean nasal oxygen to target a goal SpO2 of 92 to 96%. 3. bronchodilators albuterol/ipratropium 4 times daily and as needed 4. On metoprolol 100 mg p.o. twice daily, diltiazem 240 q day. 5. Patient is currently scheduled acetaminophen for chest pain. 6. Diuretics and antihypertensives per cardiology and thoracic surgery teams. 7. Mobilization as tolerated. This will also help with atelectasis. As oxygen needs are decreasing, pulmonary medicine will sign off at this time. Anticipate patient will need more work on ambulation and oxygenation will improve with recruitment and volume optimization. Digitally Signed by NIGEL SALCEDO MD on 07/18/2023 10:37 AM [facility] [id number] Progress note Date of Service 07/17 Subjective Consult for DM mgmt. Objective Vitals and Measurements T: 36.6 C (Oral) TMIN: 36.6 C (Oral) TMAX: 37.2 C (Oral) HR: 111(Apical) HR: 111(Monitored) RR: 18 BP: 145/72 SpO2: 94% WT: 120.7 kg Intake and Output 7AM Yesterday to 7AM Today Intake and Output (Last 24 hours) Intake Oral Intake 1400.00 Supplement Intake 120.00 Output Urine Voided 2350.00 Urinary Catheter Output: 650.00 Stool Count 2.00 Urine Count 1.00 Diaper Count 1.00 Total Summary Total Intake 1520.00 Total Output 3000.00 Fluid Balance -1480.00 Physical Exam GENERAL: No acute distress. HEAD: Normocephalic, atraumatic. EYES: Pupils equal round reactive to light and accommodation. Extraocular eye movements intact. MOUTH: Moist membranes. NECK: Supple. CARDIOVASCULAR: S1 S2 heard, regular rate and rhythm, no murmurs. No JVD, no edema. RESPIRATORY: Clear to auscultation bilaterally, no wheezes, rales or ronchi. ABDOMEN: Soft, nontender, nondistended, no rebound or guarding, bowel sounds present in all 4 quadrants. NEUROLOGIC: Awake, alert and oriented x3, no focal neurologic deficits. PSYCHIATRIC: Normal mood and affect. Weight Current Weight Dosing Weight: 122.4 kg (07/10/23) Current Weight: 120.7 kg (07/18/23) Current Weight: 122.7 kg (07/15/23) Medications Medications (29) Active Scheduled: (21) acetaminophen 325 mg Tablet 650 mg 2 tab(s), Oral, q6h albuterol - ipratropium 2.5 mg-0.5 mg/3 mL Inhal Ingris UD 3 mL, Inhalation, QIDRT apixaban 2.5 mg tablet 2.5 mg 1 tab(s), Oral, qHS clotrimazole topical 1% Cream 1 cristopher, Topical, BID diltiazem 240 mg/24 hours ER capsule 240 mg 1 cap(s), Oral, qDay docusate sodium 100 mg Capsule 100 mg 1 cap(s), Oral, TID ferrous sulfate 325 mg Tablet 325 mg 1 tab(s), Oral, qDay furosemide 40 mg/4 mL vial 40 mg 4 mL, IV Push, q12h insulin glargine 22 unit(s) 0.22 mL, Subcutaneous (INT), qHS insulin lispro 100 units/mL Soln (3 mL) 6 unit(s) 0.06 mL, Subcutaneous, with breakfast insulin lispro 100 units/mL Soln (3 mL) 6 unit(s) 0.06 mL, Subcutaneous, with lunch insulin lispro 100 units/mL Soln (3 mL) 6 unit(s) 0.06 mL, Subcutaneous, with supper insulin lispro 100 units/mL Soln (3 mL) Give 0-15 units/dose, Subcutaneous, TIDAC levothyroxine 200 mcg Tablet 200 mcg 1 tab(s), Oral, qDay levothyroxine 50 mcg tablet 50 mcg 1 tab(s), Oral, qDayAC lidocaine patch REMOVAL 1 EA, Miscellaneous, q24h lidocaine topical 4% patch 1 patch(es), Transdermal, q24h metoprolol succinate 100 mg ER tablet 100 mg 1 tab(s), Oral, BID pantoprazole 40 mg EC tablet 40 mg 1 tab(s), Oral, qDayAC potassium chloride 20 mEq ER tablet 20 mEq 1 tab(s), Oral, TIDM rosuvastatin 20 mg tablet 20 mg 1 tab(s), Oral, qHS Continuous: (0) PRN: (8) acetaminophen 325 mg Tablet 650 mg 2 tab(s), Oral, q4h albuterol - ipratropium 2.5 mg-0.5 mg/3 mL Inhal Ingris UD 3 mL, Inhalation, q2hRT albuterol 0.083% Soln UD (2.5mg/3 mL) 2.5 mg 3 mL, Inhalation, q4hRT bisacodyl 10 mg Suppository 10 mg 1 supp, Rectal, Once dextrose 50% Solution Disp syringe 50 mL 12.5 gram(s) 25 mL, IV Push, AsDirected ondansetron 2 mg/ 1 mL 2 mL INJ 4 mg 2 mL, IV Push, q4h polyethylene glycol 3350 - UD packet 17 gram(s) 15 mL, Oral, BID tramadol 50 mg Tablet 25 mg 0.5 tab(s), Oral, q12h Lab Results 07/17 02:53 Glucose Level: 141 H Sodium Level: 138 Potassium Level: 3.2 L BUN: 59.0 H Creatinine Lvl (s): 1.55 H 07/16 06:14 Glucose Level: 131 H Sodium Level: 139 Potassium Level: 3.8 BUN: 56.0 H Creatinine Lvl (s): 1.63 H EKG Electrocardiogram (EKG) - InProcess -- 07/17/23 19:57:00 EDT Assessment/Plan Atrial fibrillation Atrial fibrillation Breast cancer CHF (congestive heart failure) Chronic kidney disease (CKD) COPD (chronic obstructive pulmonary disease) Diabetes HTN (hypertension) Hyperlipidemia Hypothyroidism Hypoxia On home oxygen therapy Recurrent left pleural effusion s/p left minithoracotomy, pleural lysis of adhesions, a combinationof mechanical and chemical pleurodesis 07/10/2023 SABRINA Recommendations -Glucose at goal over past 24 hours. Continue current diabetic management with 6 units prandial insulin 3 times daily, 22 units of Lantus and high dose sliding scale coverage -Rest of the management and diuresis as per ICU and cardiothoracic surgery team. Cont to follow Digitally Signed by ARSLAN TERAN MD on 07/18/2023 09:53 AM [facility] [id number] Note ORIGINAL EXAMINATION: ONE XRAY VIEW OF THE CHEST07/18/2023 5:51 am COMPARISON: 07/16/2023 HISTORY: ORDERING SYSTEM PROVIDED HISTORY: Reason for Exam: Abnormal lung sounds FINDINGS: Stable cardiomegaly. Atherosclerotic calcification of the aorta. Small to moderate, left greater than right, pleural effusions with adjacent bibasilar airspace disease. Prominent interstitial markings bilaterally. No visible pneumothorax. A portion of the right costophrenic angle is excluded from the field of view. No acute osseous abnormality. IMPRESSION: No significant interval change in small to moderate bilateral pleural effusions with adjacent airspace disease. Prominent interstitial markings bilaterally may reflect congestion/edema with developing infectious or inflammatory process not excluded. I have personally reviewed the images of this examination, and agree with the resident's findings and interpretation. Interpreted by: Asif Perry MD Preliminary Report By: Carmela More Electronically signed By Asif Perry MD Dictated Date: 07/18/2023 5:58:43 AM Prelim Date: 07/18/2023 6:01:32 AM Sign Date: 07/18/2023 6:40:13 AM Ordering Provider: [facility]05-01-2024 NoteATRIAL FIBRILLATION VENTRICULAR PREMATURE COMPLEX RIGHT BUNDLE BRANCH BLOCK Electronic Signature: CHAD GRANADOS MD 07/18/2023 09:57:01[facility] 05-01-[facility] Cardiology Progress note Subjective No acute overnight events, patient denies palpitations or chest pain Objective Vitals and Measurements T: 37.0 C (Oral) TMIN: 36.6 C (Oral) TMAX: 37.3 C (Axillary) HR: 96(Monitored) RR: 19 BP: 140/71 SpO2: 92% Intake and Output 7AM Yesterday to 7AM Today Intake and Output (Last 24 hours) Intake Oral Intake 1020.00 Supplement Intake 240.00 Output Urine Voided 700.00 Urinary Catheter Output: 1800.00 Stool Count 2.00 Total Summary Total Intake 1260.00 Total Output 2500.00 Fluid Balance -1240.00 Physical Exam General Appearance: NAD Head: NCAT EENT: no gross abnormalities Neck: no JVD appreciated Cardiac: Irregularly irregular Lungs: CTAB Abdomen: soft, NT/ND Musculoskeletal: ROM wnl Extremities: no pitting edema Neurological: no focal deficits Skin: warm, dry Psychiatric: normal mentation Weight Current Weight Dosing Weight: 122.4 kg (07/10/23) Current Weight: 122.7 kg (07/15/23) Current Weight: 124.5 kg (07/14/23) Medications Medications (28) Active Scheduled: (20) acetaminophen 325 mg Tablet 650 mg 2 tab(s), Oral, q6h albuterol - ipratropium 2.5 mg-0.5 mg/3 mL Inhal Ingris UD 3 mL, Inhalation, QIDRT apixaban 2.5 mg tablet 2.5 mg 1 tab(s), Oral, qHS clotrimazole topical 1% Cream 1 cristopher, Topical, BID diltiazem 240 mg/24 hours ER capsule 240 mg 1 cap(s), Oral, qDay docusate sodium 100 mg Capsule 100 mg 1 cap(s), Oral, TID ferrous sulfate 325 mg Tablet 325 mg 1 tab(s), Oral, qDay furosemide 20 mg/2 mL vial 20 mg 2 mL, IV Push, BID insulin glargine 22 unit(s) 0.22 mL, Subcutaneous (INT), qHS insulin lispro 100 units/mL Soln (3 mL) 6 unit(s) 0.06 mL, Subcutaneous, with breakfast insulin lispro 100 units/mL Soln (3 mL) 6 unit(s) 0.06 mL, Subcutaneous, with lunch insulin lispro 100 units/mL Soln (3 mL) 6 unit(s) 0.06 mL, Subcutaneous, with supper insulin lispro 100 units/mL Soln (3 mL) Give 0-15 units/dose, Subcutaneous, TIDAC levothyroxine 200 mcg Tablet 200 mcg 1 tab(s), Oral, qDay levothyroxine 50 mcg tablet 50 mcg 1 tab(s), Oral, qDayAC lidocaine patch REMOVAL 1 EA, Miscellaneous, q24h lidocaine topical 4% patch 1 patch(es), Transdermal, q24h metoprolol succinate 100 mg ER tablet 100 mg 1 tab(s), Oral, BID pantoprazole 40 mg EC tablet 40 mg 1 tab(s), Oral, qDayAC rosuvastatin 20 mg tablet 20 mg 1 tab(s), Oral, qHS Continuous: (0) PRN: (8) acetaminophen 325 mg Tablet 650 mg 2 tab(s), Oral, q4h albuterol - ipratropium 2.5 mg-0.5 mg/3 mL Inhal Ingris UD 3 mL, Inhalation, q2hRT albuterol 0.083% Soln UD (2.5mg/3 mL) 2.5 mg 3 mL, Inhalation, q4hRT bisacodyl 10 mg Suppository 10 mg 1 supp, Rectal, Once dextrose 50% Solution Disp syringe 50 mL 12.5 gram(s) 25 mL, IV Push, AsDirected ondansetron 2 mg/ 1 mL 2 mL INJ 4 mg 2 mL, IV Push, q4h polyethylene glycol 3350 - UD packet 17 gram(s) 15 mL, Oral, BID tramadol 50 mg Tablet 25 mg 0.5 tab(s), Oral, q12h Lab Results 07/16 06:14 Glucose Level: 131 H Sodium Level: 139 Potassium Level: 3.8 BUN: 56.0 H Creatinine Lvl (s): 1.63 H EKG No qualifying data available. Assessment/Plan Orders: [id number], Start: 07/17/23 12:49:00 EDT, Dose = 240 mg, = 1 cap(s), Oral, qDay, NOW, 07/17/23 12:49:00 EDT Echocardiogram Adult Follow up -Longstanding persistent atrial fibrillation on Eliquis, intolerant to amiodarone, currently on rate control strategy, failed DCCV in 2019 -Acute on chronic diastolic heart failure EF 60% -SABRINA on CKD (unknown baseline) -Transient hypotension -Recurrent left pleural effusion s/p left minithoracotomy, pleural lysis of adhesions, a combination of mechanical and chemical pleurodesis -Severe concentric LVH -Hypertension -Hyperlipidemia Plan Patient continues to be tachycardic, will uptitrate beta-blockers further to 100 mg twice daily Recommend resuming anticoagulation when possible. -Use midodrine as needed for hypotension and for diuresis assistance as well as albumin -Continue to hold off on Entresto, will eventually benefit from Aldactone/Jardiance once BP and kidney function permits for diastolic heart failure. -Will obtain limited echo to assess for strain pattern to rule out infiltrative cardiomyopathy. -Rest of management per primary team. Rates are reasonably controlled, transition to extended release Cardizem. Cardiology will sign off, thank you for allowing us to participate in the care of your patient. Please do not hesitate to reach out with any questions. Digitally Signed by RENATA CANELA MD on 07/17/2023 05:07 PM [id number] Note Date of Service 07/17/2023 Subjective Reason for consultation: Diabetic management 83-year-old female with past medical history significant for recurrent left pleural effusion, insulin-dependent diabetes mellitus, atrial fibrillation, heart failure with preserved ejection fraction,hypertension, hyperlipidemia and hypothyroidism admitted 07/10/2023 to undergo left exploratory video-assisted thoracoscopic surgery with left minithoracotomy, pleural lysis of adhesions and a combination of mechanical and chemical pleurodesis. Hospitalist medicine service was consulted postoperatively for diabetic management. Patient normally takes glimepiride 1 mg daily and Tresiba 40 units daily. Since surgery there has been multiple complications including CHF, acute hypoxic respiratory failure and an SABRINA. Patient has been seen by nephrology, cardiology and pulmonary. Patient seen and examined Patient without acute complaints Patient tolerating p.o. intake No acute events overnight Objective Vitals and Measurements T: 37.0 C (Oral) TMIN: 36.5 C (Oral) TMAX: 37.3 C (Axillary) HR: 91 RR: 18 BP: 122/56 SpO2: 89% Intake and Output 7AM Yesterday to 7AM Today Intake and Output (Last 24 hours) Intake Oral Intake 1020.00 Supplement Intake 360.00 Output Urine Voided 700.00 Urinary Catheter Output: 1800.00 Stool Count 2.00 Total Summary Total Intake 1380.00 Total Output 2500.00 Fluid Balance -1120.00 Physical Exam Weight Current Weight Dosing Weight: 122.4 kg (07/10/23) Current Weight: 122.7 kg (07/15/23) Current Weight: 124.5 kg (07/14/23) Medications Medications (28) Active Scheduled: (20) acetaminophen 325 mg Tablet 650 mg 2 tab(s), Oral, q6h albuterol - ipratropium 2.5 mg-0.5 mg/3 mL Inhal Ingris UD 3 mL, Inhalation, QIDRT apixaban 2.5 mg tablet 2.5 mg 1 tab(s), Oral, qHS clotrimazole topical 1% Cream 1 cristopher, Topical, BID diltiazem 240 mg/24 hours ER capsule 240 mg 1 cap(s), Oral, qDay docusate sodium 100 mg Capsule 100 mg 1 cap(s), Oral, TID ferrous sulfate 325 mg Tablet 325 mg 1 tab(s), Oral, qDay furosemide 20 mg/2 mL vial 20 mg 2 mL, IV Push, BID insulin glargine 22 unit(s) 0.22 mL, Subcutaneous (INT), qHS insulin lispro 100 units/mL Soln (3 mL) 6 unit(s) 0.06 mL, Subcutaneous, with breakfast insulin lispro 100 units/mL Soln (3 mL) 6 unit(s) 0.06 mL, Subcutaneous, with lunch insulin lispro 100 units/mL Soln (3 mL) 6 unit(s) 0.06 mL, Subcutaneous, with supper insulin lispro 100 units/mL Soln (3 mL) Give 0-15 units/dose, Subcutaneous, TIDAC levothyroxine 200 mcg Tablet 200 mcg 1 tab(s), Oral, qDay levothyroxine 50 mcg tablet 50 mcg 1 tab(s), Oral, qDayAC lidocaine patch REMOVAL 1 EA, Miscellaneous, q24h lidocaine topical 4% patch 1 patch(es), Transdermal, q24h metoprolol succinate 100 mg ER tablet 100 mg 1 tab(s), Oral, BID pantoprazole 40 mg EC tablet 40 mg 1 tab(s), Oral, qDayAC rosuvastatin 20 mg tablet 20 mg 1 tab(s), Oral, qHS Continuous: (0) PRN: (8) acetaminophen 325 mg Tablet 650 mg 2 tab(s), Oral, q4h albuterol - ipratropium 2.5 mg-0.5 mg/3 mL Inhal Ingris UD 3 mL, Inhalation, q2hRT albuterol 0.083% Soln UD (2.5mg/3 mL) 2.5 mg 3 mL, Inhalation, q4hRT bisacodyl 10 mg Suppository 10 mg 1 supp, Rectal, Once dextrose 50% Solution Disp syringe 50 mL 12.5 gram(s) 25 mL, IV Push, AsDirected ondansetron 2 mg/ 1 mL 2 mL INJ 4 mg 2 mL, IV Push, q4h polyethylene glycol 3350 - UD packet 17 gram(s) 15 mL, Oral, BID tramadol 50 mg Tablet 25 mg 0.5 tab(s), Oral, q12h Lab Results 07/16 06:14 Glucose Level: 131 H Sodium Level: 139 Potassium Level: 3.8 BUN: 56.0 H Creatinine Lvl (s): 1.63 H 07/15 04:12 Glucose Level: 159 H Sodium Level: 137 Potassium Level: 3.7 BUN: 49.0 H Creatinine Lvl (s): 1.73 H EKG No qualifying data available. Assessment/Plan Atrial fibrillation Atrial fibrillation Breast cancer CHF (congestive heart failure) Chronic kidney disease (CKD) COPD (chronic obstructive pulmonary disease) Diabetes HTN (hypertension) Hyperlipidemia Hypothyroidism Hypoxia On home oxygen therapy Recurrent left pleural effusion s/p left minithoracotomy, pleural lysis of adhesions, a combinationof mechanical and chemical pleurodesis 07/10/2023 SABRINA Recommendations -Glucose at goal over past 24 hours. Continue current diabetic management with 6 units prandial insulin 3 times daily, 22 units of Lantus and high dose sliding scale coverage -Rest of the management and diuresis as per ICU and cardiothoracic surgery team. Thank you for allowing us to participate in the care of this patient. Will follow. Digitally Signed by TUAN COLON MD on 07/17/2023 02:49 PM [id number] Note Date of Service 07/17/2023 Chief Complaint This is an 83-year-old female with a past medical history of hypertension, atrial fibrillation, HFpEF, COPD, multifactorial pulmonary hypertension, former smoker on nocturnal oxygen with unclear rate, with hyperlipidemia, hypothyroidism, diabetes, recurrent left pleural effusions status post multiple thoracenteses who presented to [facility] 07/10/[facility]23 for an elective LVAD/minithoracotomy/decortication and underwent mechanical and chemical pleurodesis on 07/10/[address] Gardiner. Postoperatively, the patient was hypoxemic requiring return to the CV SICU and placed on high flow nasalcannula. Chest tubes in place. Chest tube has since been removed. Last 24 hours: on 7L. Mobilizing Objective Vitals and Measurements T: 37.2 C (Oral) TMIN: 36.5 C (Oral) TMAX: 37.3 C (Axillary) HR: 101(Monitored) RR: 20 BP: 150/77 SpO2: 92% Intake and Output 7AM Yesterday to 7AM Today Intake and Output (Last 24 hours) Intake Oral Intake 1300.00 Supplement Intake 596.00 Output Urine Voided 2050.00 Urinary Catheter Output: 1800.00 Stool Count 2.00 Total Summary Total Intake 1896.00 Total Output 3850.00 Fluid Balance -1953.00 Physical Exam HEENT: Oral mucosa is pink and moist Eyes: Pupils equal and reactive. Neck: No JVD no adenopathy. Heart: Regular rate and rhythm Lungs: Diminished breath sounds bilaterally. No wheezes. Chest wall: Moving symmetrically with respiration. Abdomen: Soft, nondistended, no organomegaly, no tenderness no rigidity Lower extremities: trace edema Neuro: Alert follows command, moves all 4 extremities, diffusely weak. Patient is sitting up in a chair. Weight Current Weight Dosing Weight: 122.4 kg (07/10/23) Current Weight: 122.7 kg (07/15/23) Current Weight: 124.5 kg (07/14/23) Medications Medications (28) Active Scheduled: (20) acetaminophen 325 mg Tablet 650 mg 2 tab(s), Oral, q6h albuterol - ipratropium 2.5 mg-0.5 mg/3 mL Inhal Ingris UD 3 mL, Inhalation, QIDRT clotrimazole topical 1% Cream 1 cristopher, Topical, BID diltiazem 60 mg tablet 60 mg 1 tab(s), Oral, q8hr docusate sodium 100 mg Capsule 100 mg 1 cap(s), Oral, TID ferrous sulfate 325 mg Tablet 325 mg 1 tab(s), Oral, qDay furosemide 20 mg/2 mL vial 20 mg 2 mL, IV Push, BID heparin 5,000 units/mL (1 mL) vial 5,000 unit(s) 1 mL, Subcutaneous, q8h insulin glargine 22 unit(s) 0.22 mL, Subcutaneous (INT), qHS insulin lispro 100 units/mL Soln (3 mL) 6 unit(s) 0.06 mL, Subcutaneous, with breakfast insulin lispro 100 units/mL Soln (3 mL) 6 unit(s) 0.06 mL, Subcutaneous, with lunch insulin lispro 100 units/mL Soln (3 mL) 6 unit(s) 0.06 mL, Subcutaneous, with supper insulin lispro 100 units/mL Soln (3 mL) Give 0-15 units/dose, Subcutaneous, TIDAC levothyroxine 200 mcg Tablet 200 mcg 1 tab(s), Oral, qDay levothyroxine 50 mcg tablet 50 mcg 1 tab(s), Oral, qDayAC lidocaine patch REMOVAL 1 EA, Miscellaneous, q24h lidocaine topical 4% patch 1 patch(es), Transdermal, q24h metoprolol succinate 100 mg ER tablet 100 mg 1 tab(s), Oral, BID pantoprazole 40 mg EC tablet 40 mg 1 tab(s), Oral, qDayAC rosuvastatin 20 mg tablet 20 mg 1 tab(s), Oral, qHS Continuous: (0) PRN: (8) acetaminophen 325 mg Tablet 650 mg 2 tab(s), Oral, q4h albuterol - ipratropium 2.5 mg-0.5 mg/3 mL Inhal Ingris UD 3 mL, Inhalation, q2hRT albuterol 0.083% Soln UD (2.5mg/3 mL) 2.5 mg 3 mL, Inhalation, q4hRT bisacodyl 10 mg Suppository 10 mg 1 supp, Rectal, Once dextrose 50% Solution Disp syringe 50 mL 12.5 gram(s) 25 mL, IV Push, AsDirected ondansetron 2 mg/ 1 mL 2 mL INJ 4 mg 2 mL, IV Push, q4h polyethylene glycol 3350 - UD packet 17 gram(s) 15 mL, Oral, BID tramadol 50 mg Tablet 25 mg 0.5 tab(s), Oral, q12h Lab Results 07/16 06:14 Glucose Level: 131 H Sodium Level: 139 Potassium Level: 3.8 BUN: 56.0 H Creatinine Lvl (s): 1.63 H 07/15 04:12 Glucose Level: 159 H Sodium Level: 137 Potassium Level: 3.7 BUN: 49.0 H Creatinine Lvl (s): 1.73 H EKG No qualifying data available. Assessment/Plan Atrial fibrillation Breast cancer CHF (congestive heart failure) Chronic kidney disease (CKD) COPD (chronic obstructive pulmonary disease) Diabetes HTN (hypertension) Hyperlipidemia Hypothyroidism Hypoxia On home oxygen therapy Recurrent left pleural effusion s/p left minithoracotomy, pleural lysis of adhesions, a combinationof mechanical and chemical pleurodesis 07/10/2023 1. Acute postoperative hypoxemia at large due to bilateral extensive atelectasis. some volume overload. 2. Recurrent left-sided pleural effusion status post minithoracotomy with chemical and mechanical pleurodesis. 3. SABRINA on suspected CKD improving.. 4. History of congestive heart failure with preserved LV systolic function. Atrial fibrillation. 5. Diabetes mellitus type 2 6. COPD without exacerbation. 7. Obesity, probable obstructive sleep apnea. 8. History of hypertension. Plan: 1. Patient stable for transfer out of the ICU to stepdown status 2. BiPAP 15/8 cmH2O at night and as needed. This will help with recruitment. Wean nasal oxygen to target a goal SpO2 of 92 to 96%. 3. bronchodilators albuterol/ipratropium 4 times daily and as needed 4. On metoprolol 50 mg p.o. twice daily, heart rate is well-controlled, diltiazem 60 mg p.o. every 8 hours. 5. Patient is currently scheduled acetaminophen for chest pain. 6. Heparin for DVT prophylaxis and Protonix for GI prophylaxis. 7. Diuretics and antihypertensives per cardiology and thoracic surgery teams. 8. Mobilization as tolerated. This will also help with atelectasis. [1] Progress Note; NIGEL SALCEDO MD 07/16/2023 11:57 EDT Digitally Signed by NIGEL SALCEDO MD on 07/17/2023 11:31 AM [id number] Note Date of Service 07/17/2023 postop day #7 Chief Complaint This is an 83-year-old female with multiple comorbidities including congestive heart failure, atrial fibrillation (on Eliquis), hypertension, hyperlipidemia, hypothyroidism, on PRN home oxygen who was referred for possible surgical management of recurrent left pleural effusion. The patient states that her left pleural effusion was drained multiple times, and all the cytology results were negative. The patient claims that she has pneumonia few months back that she recovered from. [facility] and the patient is on heart failure management. Patient came in yesterday 07/10/2023 and had a left minithoracotomy with lysis of adhesions and mechanical and chemical pleurodesis with Dr. Gardiner. She tolerated the procedure well, was transferred to the CV SICU in stable condition, on Simple O2 mask and later weaned to nasal cannula. POD #1: Overnight her SaO2's dropped to the high 80s low 90s, currently she is on 8 L high flow nasal cannula with SaO2 91 to 93%. Lasix IV today, wean O2 as able. Maintain chest tubes to waterseal. Transfer to stepdown unit. POD #2: Patient became hypoxic overnight with SpO2 of 87% on 12 L nasal cannula. Rapid response called. ABG at that time revealed a pH of 7.33, pCO2 46, pO2 59. Chest x-ray had showed a small residual left pneumothorax and small bilateral pleural effusions with adjacent atelectasis/consolidation. Patient was transferred back to the cardiovascular ICU and placed on high flow nasal cannula. Pulmonary consulted. Currently on high flow nasal cannula, 60 L, 85% FiO2 with SpO2 96 to 97%. Will obtain echocardiogram. In atrial fibrillation. Eliquis remains on hold. Consult cardiology. Discontinue left anterior chest tube. BUN and creatinine 40 and 2.54. Change Lasix to 40 mg IV twice daily. Postop day #3. Lasix wasplaced on held yesterday secondary to increased creatinine. Renal consulted. Albumin every 8 hours x 6 doses started. Will hold off on diuresis for today yet. Currently on 10 L high flow salter nasalcannula. DuoNebs added. Pulmonary following. To wear BiPAP throughout the day as well as at bedtime. Continue chest tube to waterseal today. Echo still pending. Postop day #4. More alert today. Continue albumin, Lasix added. Nephrology continues to follow. Midodrine added. Continue chest tube to waterseal. Remains on high flow salter nasal cannula at 10 L. BiPAP at night and throughout the day astolerated. Echocardiogram discontinued per request of Dr. Gardiner. POD #5 continue Lasix, continue chest tube for now and monitoring of drainage. Keep in ICU. POD #6 patient's O2 needs are up to 12 Lsalter high flow nasal cannula. Patient wore her BiPAP sporadically overnight for about 1 to 2 hours at a time. She is currently up in the chair, needs further diuresis but will have nephrology decide. Chest tube to be discontinued today. Will continue to keep in ICU for now due to her O2 needs. Postop day #7. Continue to wean O2 as able, continue aggressive pulmonary toilet. Continue diuresis. Metolazone 5 mg p.o. x 1 today. Midodrine discontinued yesterday per cardiology. On Toprol and Cardizem. BUN/creatinine stable. Subjective Currently resting in bed, had been up in the chair earlier today, no specific complaints offered Objective Vitals and Measurements T: 37.2 C (Oral) TMIN: 36.5 C (Oral) TMAX: 37.3 C (Axillary) HR: 94(Apical) RR: 22 BP: 138/63 SpO2:97% Intake and Output 7AM Yesterday to 7AM Today Intake and Output (Last 24 hours) Intake Oral Intake 1300.00 Supplement Intake 596.00 Output Urine Voided 1350.00 Urinary Catheter Output: 1800.00 Stool Count 1.00 Total Summary Total Intake 1896.00 Total Output 3150.00 Fluid Balance -1254.00 Physical Exam Lungs: Bilateral, with scattered expiratory rhonchi, right greater than the left, occasional productive cough of clear Respirations shallow but nonlabored, O2 per high flow nasal salter cannula at 9 L, SaO2 91% Heart: Irregular S1-S2, monitor atrial fibrillation rate in the 80s to 90s Incision: Left minithoracotomy incision open to air without drainage, chest tube site without drainage Abdomen: Soft, large, nontender, bowel sounds present, + BM Neuro: Alert at times and slightly lethargic at times, oriented with forgetfulness, moves all extremities to command Extremities: Perfused, mild bilateral lower leg edema, lower legs are painful to touch PureWick in place Weight Current Weight Dosing Weight: 122.4 kg (07/10/23) Current Weight: 122.7 kg (07/15/23) Current Weight: 124.5 kg (07/14/23) Medications Medications (28) Active Scheduled: (20) acetaminophen 325 mg Tablet 650 mg 2 tab(s), Oral, q6h albuterol - ipratropium 2.5 mg-0.5 mg/3 mL Inhal Ingris UD 3 mL, Inhalation, QIDRT clotrimazole topical 1% Cream 1 cristopher, Topical, BID diltiazem 60 mg tablet 60 mg 1 tab(s), Oral, q8hr docusate sodium 100 mg Capsule 100 mg 1 cap(s), Oral, TID ferrous sulfate 325 mg Tablet 325 mg 1 tab(s), Oral, qDay furosemide 20 mg/2 mL vial 20 mg 2 mL, IV Push, BID heparin 5,000 units/mL (1 mL) vial 5,000 unit(s) 1 mL, Subcutaneous, q8h insulin glargine 22 unit(s) 0.22 mL, Subcutaneous (INT), qHS insulin lispro 100 units/mL Soln (3 mL) 6 unit(s) 0.06 mL, Subcutaneous, with breakfast insulin lispro 100 units/mL Soln (3 mL) 6 unit(s) 0.06 mL, Subcutaneous, with lunch insulin lispro 100 units/mL Soln (3 mL) 6 unit(s) 0.06 mL, Subcutaneous, with supper insulin lispro 100 units/mL Soln (3 mL) Give 0-15 units/dose, Subcutaneous, TIDAC levothyroxine 200 mcg Tablet 200 mcg 1 tab(s), Oral, qDay levothyroxine 50 mcg tablet 50 mcg 1 tab(s), Oral, qDayAC lidocaine patch REMOVAL 1 EA, Miscellaneous, q24h lidocaine topical 4% patch 1 patch(es), Transdermal, q24h metoprolol succinate 100 mg ER tablet 100 mg 1 tab(s), Oral, BID pantoprazole 40 mg EC tablet 40 mg 1 tab(s), Oral, qDayAC rosuvastatin 20 mg tablet 20 mg 1 tab(s), Oral, qHS Continuous: (0) PRN: (8) acetaminophen 325 mg Tablet 650 mg 2 tab(s), Oral, q4h albuterol - ipratropium 2.5 mg-0.5 mg/3 mL Inhal Ingris UD 3 mL, Inhalation, q2hRT albuterol 0.083% Soln UD (2.5mg/3 mL) 2.5 mg 3 mL, Inhalation, q4hRT bisacodyl 10 mg Suppository 10 mg 1 supp, Rectal, Once dextrose 50% Solution Disp syringe 50 mL 12.5 gram(s) 25 mL, IV Push, AsDirected ondansetron 2 mg/ 1 mL 2 mL INJ 4 mg 2 mL, IV Push, q4h polyethylene glycol 3350 - UD packet 17 gram(s) 15 mL, Oral, BID tramadol 50 mg Tablet 25 mg 0.5 tab(s), Oral, q12h Lab Results 07/16 06:14 Glucose Level: 131 H Sodium Level: 139 Potassium Level: 3.8 BUN: 56.0 H Creatinine Lvl (s): 1.63 H 07/15 04:12 Glucose Level: 159 H Sodium Level: 137 Potassium Level: 3.7 BUN: 49.0 H Creatinine Lvl (s): 1.73 H EKG No qualifying data available. Assessment/Plan 1. Recurrent left pleural effusion s/p left minithoracotomy, pleural lysis of adhesions, a combination of mechanical and chemical pleurodesis 07/10/2023 Chest tube removed yesterday 2. Hypoxia Remains on high flow salter nasal cannula at 9 L Is to wear BiPAP in the at bedtime And for a few hours throughout the day She tolerates this failure Continue diuresis Add Metolazone X one dose today Continue DuoNebs Encourage aggressive pulmonary toilet Pulmonary following 3. HTN (hypertension) Blood pressure 138/63-144/71 On Toprol and Cardizem 4. Hyperlipidemia On rosuvastatin 5. Hypothyroidism Levothyroxine 6. CHF (congestive heart failure) Continue to diurese 7. Atrial fibrillation In atrial fibrillation with rate controlled On Toprol and Cardizem Eliquis at home Final echocardiogram results pending Cardiology following 8. Diabetes Glucose 131 143 Chest x-ray on insulin doses as well as sliding scale [place] inpatient endocrinology assistance team following 9. COPD (chronic obstructive pulmonary disease) 10. Chronic kidney disease (CKD) BUN 56/creatinine 1.63 Continue to diurese Nephrology following 11. On home oxygen therapy 12. Breast cancer Vascular studies yesterday negative for DVT Continue diuresis Metolozone 5 mg today Wean O2 maintaining parameters Increase activity as tolerated, continue aggressive pulmonary toilet BMP and chest x-ray in a.m. Patient seen and discussed with Dr. Gardiner Digitally Signed by VANDA DO on 07/17/2023 10:27 AM Digitally Signed by VANDA DO on 07/17/2023 10:31 AM [id number] Note* Exam Date Time Procedure Performing Provider Status 07/17/23 9:28 AM Echocardiogram Follo w up, Adult - CV Auth (Verified) [facility] 05-01-2024 Nurse Progress note 2200 meds given per staff nurse witness. Prior nurse did not sign off. Verified doses given. Digitally Signed by Viry Larkin RN on 07/17/2023 02:45 AM [id number] Cardiology Progress note Subjective No acute overnight events, patient denies chest pain or dyspnea currently. Objective Vitals and Measurements T: 37.2 C (Oral) TMIN: 36.7 C (Oral) TMAX: 37.4 C (Oral) HR: 101(Monitored) RR: 20 BP: 133/64 SpO2:95% WT: 122.7 kg Intake and Output 7AM Yesterday to 7AM Today Intake and Output (Last 24 hours) Intake Oral Intake 660.00 Output Chest Tube Output: 180.00 Urine Voided 302.00 Urinary Catheter Output: 1200.00 Stool Count 1.00 Total Summary Total Intake 660.00 Total Output 1682.00 Fluid Balance -1022.00 Physical Exam General Appearance: NAD Head: NCAT EENT: no gross abnormalities Neck: no JVD appreciated Cardiac: Tachycardic, irregularly irregular Lungs: CTAB Abdomen: soft, NT/ND Musculoskeletal: ROM wnl Extremities: no pitting edema Neurological: no focal deficits Skin: warm, dry Psychiatric: normal mentation Weight Current Weight Dosing Weight: 122.4 kg (07/10/23) Current Weight: 122.7 kg (07/15/23) Current Weight: 124.5 kg (07/14/23) Medications Medications (29) Active Scheduled: (21) albumin human 25% (50 mL) vial 12.5 gram(s) 50 mL, IV Piggyback (MED), q8h albuterol - ipratropium 2.5 mg-0.5 mg/3 mL Inhal Ingris UD 3 mL, Inhalation, QIDRT clotrimazole topical 1% Cream 1 cristopher, Topical, BID diltiazem 60 mg tablet 60 mg 1 tab(s), Oral, q8hr docusate sodium 100 mg Capsule 100 mg 1 cap(s), Oral, TID ferrous sulfate 325 mg Tablet 325 mg 1 tab(s), Oral, qDay heparin 5,000 units/mL (1 mL) vial 5,000 unit(s) 1 mL, Subcutaneous, q8h insulin glargine 22 unit(s) 0.22 mL, Subcutaneous (INT), qHS insulin lispro 100 units/mL Soln (3 mL) 6 unit(s) 0.06 mL, Subcutaneous, with breakfast insulin lispro 100 units/mL Soln (3 mL) 6 unit(s) 0.06 mL, Subcutaneous, with lunch insulin lispro 100 units/mL Soln (3 mL) 6 unit(s) 0.06 mL, Subcutaneous, with supper insulin lispro 100 units/mL Soln (3 mL) Give 0-15 units/dose, Subcutaneous, TIDAC levothyroxine 200 mcg Tablet 200 mcg 1 tab(s), Oral, qDay levothyroxine 50 mcg tablet 50 mcg 1 tab(s), Oral, qDayAC lidocaine patch REMOVAL 1 EA, Miscellaneous, q24h lidocaine topical 4% patch 1 patch(es), Transdermal, q24h metoprolol succinate 25 mg ER tablet 75 mg 3 tab(s), Oral, BID midodrine 5 mg tablet 5 mg 1 tab(s), Oral, TID mupirocin 2% Ointment 22 Gram(s) tube 1 cristopher, Nostril, each, q12h pantoprazole 40 mg EC tablet 40 mg 1 tab(s), Oral, qDayAC rosuvastatin 20 mg tablet 20 mg 1 tab(s), Oral, qHS Continuous: (0) PRN: (8) acetaminophen 325 mg Tablet 650 mg 2 tab(s), Oral, q4h albuterol - ipratropium 2.5 mg-0.5 mg/3 mL Inhal Ingris UD 3 mL, Inhalation, q2hRT albuterol 0.083% Soln UD (2.5mg/3 mL) 2.5 mg 3 mL, Inhalation, q4hRT bisacodyl 10 mg Suppository 10 mg 1 supp, Rectal, Once dextrose 50% Solution Disp syringe 50 mL 12.5 gram(s) 25 mL, IV Push, AsDirected ondansetron 2 mg/ 1 mL 2 mL INJ 4 mg 2 mL, IV Push, q4h polyethylene glycol 3350 - UD packet 17 gram(s) 15 mL, Oral, BID tramadol 50 mg Tablet 25 mg 0.5 tab(s), Oral, q12h Lab Results 07/14 05:44 WBC: 7.0 Hgb: 10.1 L Hct: 30.1 L Platelet: 224 Neutrophil %: 80.2 H Glucose Level: 159 H Sodium Level: 136 Potassium Level: 3.9 BUN: 53.0 H Creatinine Lvl (s): 2.10 H EKG No qualifying data available. Assessment/Plan Orders: metoprolol, Start: 07/15/23 17:54:00 EDT, Dose = 75 mg, = 3 tab(s), Oral, BID, Hold if SBP (mmHg) < 110, Hold if HR (bpm) < 60, give with food/meal, 0, 07/15/23 17:54:00 EDT -Longstanding persistent atrial fibrillation on Eliquis, intolerant to amiodarone, currently on rate control strategy, failed DCCV in 2019 -Acute on chronic diastolic heart failure EF 60% -SABRINA on CKD (unknown baseline) -Transient hypotension -Recurrent left pleural effusion s/p left minithoracotomy, pleural lysis of adhesions, a combination of mechanical and chemical pleurodesis -Severe concentric LVH -Hypertension -Hyperlipidemia Plan Patient continues to be tachycardic, will uptitrate beta-blockers to 75 mg twice daily. Recommend resuming anticoagulation when possible. -Use midodrine as needed for hypotension and for diuresis assistance as well as albumin -Continue to hold off on Entresto, will eventually benefit from Aldactone/Jardiance once BP and kidney function permits for diastolic heart failure. -Will obtain limited echo to assess for strain pattern to rule out infiltrative cardiomyopathy. -Rest of management per primary team Digitally Signed by RENATA CANELA MD on 07/15/2023 05:56 PM Digitally Signed by RENATA CANELA MD on 07/15/2023 06:05 PM [id number] Cardiology Progress note Subjective No acute overnight events, patient denies chest pain, endorses exertional dyspnea Objective Vitals and Measurements T: 36.5 C (Oral) TMIN: 36.5 C (Oral) TMAX: 37.1 C (Oral) HR: 94(Apical) RR: 20 BP: 143/76 SpO2: 90% Intake and Output 7AM Yesterday to 7AM Today Intake and Output (Last 24 hours) Intake Oral Intake 1000.00 Supplement Intake 356.00 Output Chest Tube Output: 130.00 Urine Voided 2250.00 Stool Count 1.00 Total Summary Total Intake 1356.00 Total Output 2380.00 Fluid Balance -1024.00 Physical Exam General Appearance: NAD Head: NCAT EENT: no gross abnormalities Neck: no JVD appreciated Cardiac: Tachycardic, irregularly irregular Lungs: CTAB Abdomen: soft, NT/ND Musculoskeletal: ROM wnl Extremities: no pitting edema Neurological: no focal deficits Skin: warm, dry Psychiatric: normal mentation Weight Current Weight Dosing Weight: 122.4 kg (07/10/23) Current Weight: 122.7 kg (07/15/23) Current Weight: 124.5 kg (07/14/23) Medications Medications (28) Active Scheduled: (20) acetaminophen 325 mg Tablet 650 mg 2 tab(s), Oral, q6h albuterol - ipratropium 2.5 mg-0.5 mg/3 mL Inhal Ingris UD 3 mL, Inhalation, QIDRT clotrimazole topical 1% Cream 1 cristopher, Topical, BID diltiazem 60 mg tablet 60 mg 1 tab(s), Oral, q8hr docusate sodium 100 mg Capsule 100 mg 1 cap(s), Oral, TID ferrous sulfate 325 mg Tablet 325 mg 1 tab(s), Oral, qDay furosemide 20 mg/2 mL vial 20 mg 2 mL, IV Push, BID heparin 5,000 units/mL (1 mL) vial 5,000 unit(s) 1 mL, Subcutaneous, q8h insulin glargine 22 unit(s) 0.22 mL, Subcutaneous (INT), qHS insulin lispro 100 units/mL Soln (3 mL) 6 unit(s) 0.06 mL, Subcutaneous, with breakfast insulin lispro 100 units/mL Soln (3 mL) 6 unit(s) 0.06 mL, Subcutaneous, with lunch insulin lispro 100 units/mL Soln (3 mL) 6 unit(s) 0.06 mL, Subcutaneous, with supper insulin lispro 100 units/mL Soln (3 mL) Give 0-15 units/dose, Subcutaneous, TIDAC levothyroxine 200 mcg Tablet 200 mcg 1 tab(s), Oral, qDay levothyroxine 50 mcg tablet 50 mcg 1 tab(s), Oral, qDayAC lidocaine patch REMOVAL 1 EA, Miscellaneous, q24h lidocaine topical 4% patch 1 patch(es), Transdermal, q24h metoprolol succinate 100 mg ER tablet 100 mg 1 tab(s), Oral, BID pantoprazole 40 mg EC tablet 40 mg 1 tab(s), Oral, qDayAC rosuvastatin 20 mg tablet 20 mg 1 tab(s), Oral, qHS Continuous: (0) PRN: (8) acetaminophen 325 mg Tablet 650 mg 2 tab(s), Oral, q4h albuterol - ipratropium 2.5 mg-0.5 mg/3 mL Inhal Ingris UD 3 mL, Inhalation, q2hRT albuterol 0.083% Soln UD (2.5mg/3 mL) 2.5 mg 3 mL, Inhalation, q4hRT bisacodyl 10 mg Suppository 10 mg 1 supp, Rectal, Once dextrose 50% Solution Disp syringe 50 mL 12.5 gram(s) 25 mL, IV Push, AsDirected ondansetron 2 mg/ 1 mL 2 mL INJ 4 mg 2 mL, IV Push, q4h polyethylene glycol 3350 - UD packet 17 gram(s) 15 mL, Oral, BID tramadol 50 mg Tablet 25 mg 0.5 tab(s), Oral, q12h Lab Results 07/15 04:12 Glucose Level: 159 H Sodium Level: 137 Potassium Level: 3.7 BUN: 49.0 H Creatinine Lvl (s): 1.73 H 07/14 20:15 Potassium Level: 4.0 EKG No qualifying data available. Assessment/Plan Orders: metoprolol, Start: 07/16/23 17:00:00 EDT, Dose = 100 mg, = 1 tab(s), Oral, BID, Hold if SBP (mmHg) < 110, Hold if HR (bpm) < 60, give with food/meal, 0, 07/16/23 12:52:00 EDT Echocardiogram Adult Follow up -Longstanding persistent atrial fibrillation on Eliquis, intolerant to amiodarone, currently on rate control strategy, failed DCCV in 2019 -Acute on chronic diastolic heart failure EF 60% -SABRINA on CKD (unknown baseline) -Transient hypotension -Recurrent left pleural effusion s/p left minithoracotomy, pleural lysis of adhesions, a combination of mechanical and chemical pleurodesis -Severe concentric LVH -Hypertension -Hyperlipidemia Plan Patient continues to be tachycardic, will uptitrate beta-blockers further to 100 mg twice daily Recommend resuming anticoagulation when possible. -Use midodrine as needed for hypotension and for diuresis assistance as well as albumin -Continue to hold off on Entresto, will eventually benefit from Aldactone/Jardiance once BP and kidney function permits for diastolic heart failure. -Will obtain limited echo to assess for strain pattern to rule out infiltrative cardiomyopathy. -Rest of management per primary team Digitally Signed by RENATA CANELA MD on 07/16/2023 06:05 PM [id number] Cardiology Progress note Subjective No acute overnight events, patient denies chest pain, endorses exertional dyspnea Objective Vitals and Measurements T: 36.5 C (Oral) TMIN: 36.5 C (Oral) TMAX: 37.1 C (Oral) HR: 94(Apical) RR: 20 BP: 143/76 SpO2: 90% Intake and Output 7AM Yesterday to 7AM Today Intake and Output (Last 24 hours) Intake Oral Intake 1000.00 Supplement Intake 356.00 Output Chest Tube Output: 130.00 Urine Voided 2250.00 Stool Count 1.00 Total Summary Total Intake 1356.00 Total Output 2380.00 Fluid Balance -1024.00 Physical Exam General Appearance: NAD Head: NCAT EENT: no gross abnormalities Neck: no JVD appreciated Cardiac: Tachycardic, irregularly irregular Lungs: CTAB Abdomen: soft, NT/ND Musculoskeletal: ROM wnl Extremities: no pitting edema Neurological: no focal deficits Skin: warm, dry Psychiatric: normal mentation Weight Current Weight Dosing Weight: 122.4 kg (07/10/23) Current Weight: 122.7 kg (07/15/23) Current Weight: 124.5 kg (07/14/23) Medications Medications (28) Active Scheduled: (20) acetaminophen 325 mg Tablet 650 mg 2 tab(s), Oral, q6h albuterol - ipratropium 2.5 mg-0.5 mg/3 mL Inhal Ingris UD 3 mL, Inhalation, QIDRT clotrimazole topical 1% Cream 1 cristopher, Topical, BID diltiazem 60 mg tablet 60 mg 1 tab(s), Oral, q8hr docusate sodium 100 mg Capsule 100 mg 1 cap(s), Oral, TID ferrous sulfate 325 mg Tablet 325 mg 1 tab(s), Oral, qDay furosemide 20 mg/2 mL vial 20 mg 2 mL, IV Push, BID heparin 5,000 units/mL (1 mL) vial 5,000 unit(s) 1 mL, Subcutaneous, q8h insulin glargine 22 unit(s) 0.22 mL, Subcutaneous (INT), qHS insulin lispro 100 units/mL Soln (3 mL) 6 unit(s) 0.06 mL, Subcutaneous, with breakfast insulin lispro 100 units/mL Soln (3 mL) 6 unit(s) 0.06 mL, Subcutaneous, with lunch insulin lispro 100 units/mL Soln (3 mL) 6 unit(s) 0.06 mL, Subcutaneous, with supper insulin lispro 100 units/mL Soln (3 mL) Give 0-15 units/dose, Subcutaneous, TIDAC levothyroxine 200 mcg Tablet 200 mcg 1 tab(s), Oral, qDay levothyroxine 50 mcg tablet 50 mcg 1 tab(s), Oral, qDayAC lidocaine patch REMOVAL 1 EA, Miscellaneous, q24h lidocaine topical 4% patch 1 patch(es), Transdermal, q24h metoprolol succinate 100 mg ER tablet 100 mg 1 tab(s), Oral, BID pantoprazole 40 mg EC tablet 40 mg 1 tab(s), Oral, qDayAC rosuvastatin 20 mg tablet 20 mg 1 tab(s), Oral, qHS Continuous: (0) PRN: (8) acetaminophen 325 mg Tablet 650 mg 2 tab(s), Oral, q4h albuterol - ipratropium 2.5 mg-0.5 mg/3 mL Inhal Ingris UD 3 mL, Inhalation, q2hRT albuterol 0.083% Soln UD (2.5mg/3 mL) 2.5 mg 3 mL, Inhalation, q4hRT bisacodyl 10 mg Suppository 10 mg 1 supp, Rectal, Once dextrose 50% Solution Disp syringe 50 mL 12.5 gram(s) 25 mL, IV Push, AsDirected ondansetron 2 mg/ 1 mL 2 mL INJ 4 mg 2 mL, IV Push, q4h polyethylene glycol 3350 - UD packet 17 gram(s) 15 mL, Oral, BID tramadol 50 mg Tablet 25 mg 0.5 tab(s), Oral, q12h Lab Results 07/15 04:12 Glucose Level: 159 H Sodium Level: 137 Potassium Level: 3.7 BUN: 49.0 H Creatinine Lvl (s): 1.73 H 07/14 20:15 Potassium Level: 4.0 EKG No qualifying data available. Assessment/Plan Orders: metoprolol, Start: 07/16/23 17:00:00 EDT, Dose = 100 mg, = 1 tab(s), Oral, BID, Hold if SBP (mmHg) < 110, Hold if HR (bpm) < 60, give with food/meal, 0, 07/16/23 12:52:00 EDT Echocardiogram Adult Follow up -Longstanding persistent atrial fibrillation on Eliquis, intolerant to amiodarone, currently on rate control strategy, failed DCCV in 2019 -Acute on chronic diastolic heart failure EF 60% -SABRINA on CKD (unknown baseline) -Transient hypotension -Recurrent left pleural effusion s/p left minithoracotomy, pleural lysis of adhesions, a combination of mechanical and chemical pleurodesis -Severe concentric LVH -Hypertension -Hyperlipidemia Plan Patient continues to be tachycardic, will uptitrate beta-blockers further to 100 mg twice daily Recommend resuming anticoagulation when possible. -Use midodrine as needed for hypotension and for diuresis assistance as well as albumin -Continue to hold off on Entresto, will eventually benefit from Aldactone/Jardiance once BP and kidney function permits for diastolic heart failure. -Will obtain limited echo to assess for strain pattern to rule out infiltrative cardiomyopathy. -Rest of management per primary team Digitally Signed by RENATA CANELA MD on 07/16/2023 06:05 PM [id number] Note Date of Service 07/16/2023 Chief Complaint This is an 83-year-old female with a past medical history of hypertension, atrial fibrillation, HFpEF, COPD, multifactorial pulmonary hypertension, former smoker on nocturnal oxygen with unclear rate, with hyperlipidemia, hypothyroidism, diabetes, recurrent left pleural effusions status post multiple thoracenteses who presented to [facility] 07/10/[facility]23 for an elective LVAD/minithoracotomy/decortication and underwent mechanical and chemical pleurodesis on 07/10/[address] Gardiner. Postoperatively, the patient was hypoxemic requiring return to the CV SICU and placed on high flow nasalcannula. Chest tubes in place. Chest tube has since been removed. Last 24 hours: Patient somewhat intolerant of BiPAP overnight. This morning she is on 10 L salter cannula. She reports some pain with deep inspiration. This is mostly on the left side. Objective Vitals and Measurements T: 36.6 C (Oral) TMIN: 36.6 C (Oral) TMAX: 37.4 C (Oral) HR: 110(Monitored) RR: 20 BP: 146/74 SpO2:95% Intake and Output 7AM Yesterday to 7AM Today Intake and Output (Last 24 hours) Intake Oral Intake 900.00 Supplement Intake 236.00 Output Chest Tube Output: 130.00 Urine Voided 1202.00 Stool Count 2.00 Total Summary Total Intake 1136.00 Total Output 1332.00 Fluid Balance -196.00 Physical Exam HEENT: Oral mucosa is pink and moist Eyes: Pupils equal and reactive. Neck: No JVD no adenopathy. Heart: Regular rate and rhythm Lungs: Diminished breath sounds bilaterally. No wheezes. Chest wall: Moving symmetrically with respiration. Abdomen: Soft, nondistended, no organomegaly, no tenderness no rigidity Lower extremities: trace edema Neuro: Alert follows command, moves all 4 extremities, diffusely weak. Patient is sitting up in a chair. Weight Current Weight Dosing Weight: 122.4 kg (07/10/23) Current Weight: 122.7 kg (07/15/23) Current Weight: 124.5 kg (07/14/23) Medications Medications (28) Active Scheduled: (20) acetaminophen 325 mg Tablet 650 mg 2 tab(s), Oral, q6h albuterol - ipratropium 2.5 mg-0.5 mg/3 mL Inhal Ingris UD 3 mL, Inhalation, QIDRT clotrimazole topical 1% Cream 1 cristopher, Topical, BID diltiazem 60 mg tablet 60 mg 1 tab(s), Oral, q8hr docusate sodium 100 mg Capsule 100 mg 1 cap(s), Oral, TID ferrous sulfate 325 mg Tablet 325 mg 1 tab(s), Oral, qDay furosemide 20 mg/2 mL vial 20 mg 2 mL, IV Push, BID heparin 5,000 units/mL (1 mL) vial 5,000 unit(s) 1 mL, Subcutaneous, q8h insulin glargine 22 unit(s) 0.22 mL, Subcutaneous (INT), qHS insulin lispro 100 units/mL Soln (3 mL) 6 unit(s) 0.06 mL, Subcutaneous, with breakfast insulin lispro 100 units/mL Soln (3 mL) 6 unit(s) 0.06 mL, Subcutaneous, with lunch insulin lispro 100 units/mL Soln (3 mL) 6 unit(s) 0.06 mL, Subcutaneous, with supper insulin lispro 100 units/mL Soln (3 mL) Give 0-15 units/dose, Subcutaneous, TIDAC levothyroxine 200 mcg Tablet 200 mcg 1 tab(s), Oral, qDay levothyroxine 50 mcg tablet 50 mcg 1 tab(s), Oral, qDayAC lidocaine patch REMOVAL 1 EA, Miscellaneous, q24h lidocaine topical 4% patch 1 patch(es), Transdermal, q24h metoprolol succinate 25 mg ER tablet 75 mg 3 tab(s), Oral, BID pantoprazole 40 mg EC tablet 40 mg 1 tab(s), Oral, qDayAC rosuvastatin 20 mg tablet 20 mg 1 tab(s), Oral, qHS Continuous: (0) PRN: (8) acetaminophen 325 mg Tablet 650 mg 2 tab(s), Oral, q4h albuterol - ipratropium 2.5 mg-0.5 mg/3 mL Inhal Ingris UD 3 mL, Inhalation, q2hRT albuterol 0.083% Soln UD (2.5mg/3 mL) 2.5 mg 3 mL, Inhalation, q4hRT bisacodyl 10 mg Suppository 10 mg 1 supp, Rectal, Once dextrose 50% Solution Disp syringe 50 mL 12.5 gram(s) 25 mL, IV Push, AsDirected ondansetron 2 mg/ 1 mL 2 mL INJ 4 mg 2 mL, IV Push, q4h polyethylene glycol 3350 - UD packet 17 gram(s) 15 mL, Oral, BID tramadol 50 mg Tablet 25 mg 0.5 tab(s), Oral, q12h Lab Results 07/15 04:12 Glucose Level: 159 H Sodium Level: 137 Potassium Level: 3.7 BUN: 49.0 H Creatinine Lvl (s): 1.73 H 07/14 20:15 Potassium Level: 4.0 07/14 05:44 WBC: 7.0 Hgb: 10.1 L Hct: 30.1 L Platelet: 224 Neutrophil %: 80.2 H Glucose Level: 159 H Sodium Level: 136 Potassium Level: 3.9 BUN: 53.0 H Creatinine Lvl (s): 2.10 H EKG No qualifying data available. Assessment/Plan Atrial fibrillation Breast cancer CHF (congestive heart failure) Chronic kidney disease (CKD) COPD (chronic obstructive pulmonary disease) Diabetes HTN (hypertension) Hyperlipidemia Hypothyroidism Hypoxia On home oxygen therapy Recurrent left pleural effusion s/p left minithoracotomy, pleural lysis of adhesions, a combinationof mechanical and chemical pleurodesis 07/10/2023 1. Acute postoperative hypoxemia at large due to bilateral extensive atelectasis. 2. Recurrent left-sided pleural effusion status post minithoracotomy with chemical and mechanical pleurodesis. 3. Acute kidney injury, suspect chronic kidney disease. 4. History of congestive heart failure with preserved LV Margret function atrial fibrillation's. 5. Diabetes mellitus type 2 6. COPD without exacerbation. 7. Obesity, probable obstructive sleep apnea. 8. History of hypertension. Plan: 1. Continue to monitor the patient at the cardiothoracic intensive care unit. 2. BiPAP 15/8 cmH2O at night and as needed. This will help with recruitment. Wean nasal oxygen to target a goal SpO2 of 92 to 96%. 3. bronchodilators albuterol/ipratropium 4 times daily and as needed 4. On metoprolol 50 mg p.o. twice daily, heart rate is well-controlled, diltiazem 60 mg p.o. every 8 hours. 5. Patient to receive scheduled acetaminophen for chest pain. 6. Heparin for DVT prophylaxis and Protonix for GI prophylaxis. 7. Diuretics and antihypertensives per cardiology and thoracic surgery teams. 8. Mobilization as tolerated. This will also help with atelectasis. Digitally Signed by NIGEL SALCEDO MD on 07/16/2023 12:01 PM Digitally Signed by NIGEL SALCEDO MD on 07/16/2023 12:02 PM [facility] [id number] Note Date of Service 07/16/2023 Chief Complaint POD #6 This is an 83-year-old female with multiple comorbidities including congestive heart failure, atrial fibrillation (on Eliquis), hypertension, hyperlipidemia, hypothyroidism, on PRN home oxygen who was referred for possible surgical management of recurrent left pleural effusion. The patient states that her left pleural effusion was drained multiple times, and all the cytology results were negative. The patient claims that she has pneumonia few months back that she recovered from. She has a [facility] and the patient is on heart failure management. Patient came in yesterday 07/10/2023 and had a left minithoracotomy with lysis of adhesions and mechanical and chemical pleurodesis with Dr. Gardiner. She tolerated the procedure well, was transferred to the CV SICU in stable condition, on Simple O2 mask and later weaned to nasal cannula. POD #1: Overnight her SaO2's dropped to the high 80s low 90s, currently she is on 8 L high flow nasal cannula with SaO2 91 to 93%. Lasix IV today, wean O2 as able. Maintain chest tubes to waterseal. Transfer to stepdown unit. POD #2: Patient became hypoxic overnight with SpO2 of 87% on 12 L nasal cannula. Rapid response called. ABG at that time revealed a pH of 7.33, pCO2 46, pO2 59. Chest x-ray had showed a small residual left pneumothorax and small bilateral pleural effusions with adjacent atelectasis/consolidation. Patient was transferred back to the cardiovascular ICU and placed on high flow nasal cannula. Pulmonary consulted. Currently on high flow nasal cannula, 60 L, 85% FiO2 with SpO2 96 to 97%. Will obtain echocardiogram. In atrial fibrillation. Eliquis remains on hold. Consult cardiology. Discontinue left anterior chest tube. BUN and creatinine 40 and 2.54. Change Lasix to 40 mg IV twice daily. Postop day #3. Lasix wasplaced on held yesterday secondary to increased creatinine. Renal consulted. Albumin every 8 hours x 6 doses started. Will hold off on diuresis for today yet. Currently on 10 L high flow salter nasalcannula. DuoNebs added. Pulmonary following. To wear BiPAP throughout the day as well as at bedtime. Continue chest tube to waterseal today. Echo still pending. Postop day #4. More alert today. Continue albumin, Lasix added. Nephrology continues to follow. Midodrine added. Continue chest tube to waterseal. Remains on high flow salter nasal cannula at 10 L. BiPAP at night and throughout the day astolerated. Echocardiogram discontinued per request of Dr. Gardiner. POD #5 continue Lasix, continue chest tube for now and monitoring of drainage. Keep in ICU. POD #6 patient's O2 needs are up to 12 Lsalter high flow nasal cannula. Patient wore her BiPAP sporadically overnight for about 1 to 2 hours at a time. She is currently up in the chair, needs further diuresis but will have nephrology decide. Chest tube to be discontinued today. Will continue to keep in ICU for now due to her O2 needs Subjective Up in chair, complaining of having her foot as the chair elevated Objective Vitals and Measurements T: 36.9 C (Oral) TMIN: 36.9 C (Oral) TMAX: 37.4 C (Oral) HR: 104 RR: 20 BP: 143/66 SpO2: 96% Intake and Output 7AM Yesterday to 7AM Today Intake and Output (Last 24 hours) Intake Oral Intake 600.00 Output Chest Tube Output: 130.00 Urine Voided 1202.00 Stool Count 2.00 Total Summary Total Intake 600.00 Total Output 1332.00 Fluid Balance -732.00 Physical Exam Neuro alert, oriented but forgetful at times, appropriate, moves all extremities Lungs with expiratory crackles bilateral bases, SaO2 94% on 12 L high flow nasal cannula. Left chest tube placed to waterseal, minimal drainage Heart S1 and S2, atrial fibrillation in the 90s Abdomen is large soft nontender bowel sounds present, positive bowel movement this morning pure wick, urine output 1202 cc in the last 24 hours / 500 cc in 8 hours, I&O status -320 cc Extremities 1+ edema bilateral lower legs and dependent thigh area Skin left minithoracotomy incision open to air well-approximated no drainage Weight Current Weight Dosing Weight: 122.4 kg (07/10/23) Current Weight: 122.7 kg (07/15/23) Current Weight: 124.5 kg (07/14/23) Medications Medications (28) Active Scheduled: (20) acetaminophen 325 mg Tablet 650 mg 2 tab(s), Oral, q6h albuterol - ipratropium 2.5 mg-0.5 mg/3 mL Inhal Ingris UD 3 mL, Inhalation, QIDRT clotrimazole topical 1% Cream 1 cristopher, Topical, BID diltiazem 60 mg tablet 60 mg 1 tab(s), Oral, q8hr docusate sodium 100 mg Capsule 100 mg 1 cap(s), Oral, TID ferrous sulfate 325 mg Tablet 325 mg 1 tab(s), Oral, qDay furosemide 20 mg/2 mL vial 20 mg 2 mL, IV Push, BID heparin 5,000 units/mL (1 mL) vial 5,000 unit(s) 1 mL, Subcutaneous, q8h insulin glargine 22 unit(s) 0.22 mL, Subcutaneous (INT), qHS insulin lispro 100 units/mL Soln (3 mL) 6 unit(s) 0.06 mL, Subcutaneous, with breakfast insulin lispro 100 units/mL Soln (3 mL) 6 unit(s) 0.06 mL, Subcutaneous, with lunch insulin lispro 100 units/mL Soln (3 mL) 6 unit(s) 0.06 mL, Subcutaneous, with supper insulin lispro 100 units/mL Soln (3 mL) Give 0-15 units/dose, Subcutaneous, TIDAC levothyroxine 200 mcg Tablet 200 mcg 1 tab(s), Oral, qDay levothyroxine 50 mcg tablet 50 mcg 1 tab(s), Oral, qDayAC lidocaine patch REMOVAL 1 EA, Miscellaneous, q24h lidocaine topical 4% patch 1 patch(es), Transdermal, q24h metoprolol succinate 25 mg ER tablet 75 mg 3 tab(s), Oral, BID pantoprazole 40 mg EC tablet 40 mg 1 tab(s), Oral, qDayAC rosuvastatin 20 mg tablet 20 mg 1 tab(s), Oral, qHS Continuous: (0) PRN: (8) acetaminophen 325 mg Tablet 650 mg 2 tab(s), Oral, q4h albuterol - ipratropium 2.5 mg-0.5 mg/3 mL Inhal Ingris UD 3 mL, Inhalation, q2hRT albuterol 0.083% Soln UD (2.5mg/3 mL) 2.5 mg 3 mL, Inhalation, q4hRT bisacodyl 10 mg Suppository 10 mg 1 supp, Rectal, Once dextrose 50% Solution Disp syringe 50 mL 12.5 gram(s) 25 mL, IV Push, AsDirected ondansetron 2 mg/ 1 mL 2 mL INJ 4 mg 2 mL, IV Push, q4h polyethylene glycol 3350 - UD packet 17 gram(s) 15 mL, Oral, BID tramadol 50 mg Tablet 25 mg 0.5 tab(s), Oral, q12h Lab Results 07/15 04:12 Glucose Level: 159 H Sodium Level: 137 Potassium Level: 3.7 BUN: 49.0 H Creatinine Lvl (s): 1.73 H 07/14 20:15 Potassium Level: 4.0 07/14 05:44 WBC: 7.0 Hgb: 10.1 L Hct: 30.1 L Platelet: 224 Neutrophil %: 80.2 H Glucose Level: 159 H Sodium Level: 136 Potassium Level: 3.9 BUN: 53.0 H Creatinine Lvl (s): 2.10 H EKG No qualifying data available. Assessment/Plan 1. Recurrent left pleural effusion s/p left minithoracotomy, pleural lysis of adhesions, a combination of mechanical and chemical pleurodesis 07/10/2023 Left chest tube drained only 160 cc in last 24 hours, on waterseal, no airleak Chest x-ray with persistent vascular congestion 2. Hypoxia Patient only wore her BiPAP last evening intermittently Discussed with patient importance of wearing her BiPAP overnight and that she should try BiPAP for couple hours this afternoon Pulmonary following 3. Atrial fibrillation In atrial fibrillation in the 90s, on Cardizem, Toprol-XL Eliquis on hold 4. COPD (chronic obstructive pulmonary disease) On DuoNebs O2 is currently at 12 L salter nasal cannula, SaO2 93 to 94% Pulmonary following 5. Breast cancer 6. CHF (congestive heart failure) Lasix per nephrology, JOHNATHAN status is -320 cc, she does have bilateral lower leg edema 1+ pitting 7. Chronic kidney disease (CKD) BUN and creatinine continue to improve at 49 and 1.73 today, nephrology following 8. Diabetes Glucose 159 178, [place] endocrinology assistance following 9. Hyperlipidemia On rosuvastatin 10. HTN (hypertension) Blood pressure 126/67-143/66, on midodrine for hypotension postoperatively 11. Hypothyroidism Levothyroxine Orders: acetaminophen, Start: 07/16/23 12:00:00 EDT, Dose = 650 mg, = 2 tab(s), Oral, q6h, 07/16/23 11:31:00 EDT VL Venous US/Doppler Both Legs (for DVT) Plan: Lasix/diuresis as per nephrology Discontinue chest tube today, follow-up chest x-ray Encourage patient and educated patient on importance of wearing BiPAP all night tonight and that she should also try BiPAP this afternoon for a few hours BMP and chest x-ray in the a.m. Continue midodrine Keep in ICU due to O2 needs presently Patient seen and discussed with Dr. Gardiner Digitally Signed by ZAINAB MIRANDA on 07/16/2023 11:38 AM [id number] Nephrology Progress note Date of Service 07-15 Subjective resting. some sob Objective Vitals and Measurements T: 36.9 C (Oral) TMIN: 36.7 C (Oral) TMAX: 37.4 C (Oral) HR: 115(Apical) RR: 20 BP: 143/66 SpO2: 94% Intake and Output 7AM Yesterday to 7AM Today Intake and Output (Last 24 hours) Intake Oral Intake 600.00 Output Chest Tube Output: 150.00 Urine Voided 1202.00 Stool Count 2.00 Total Summary Total Intake 600.00 Total Output 1352.00 Fluid Balance -752.00 Physical Exam General: lesss sob HEENT: Icterus-; Pallor + Neck: No swelling. JVD normal. Chest: Chest equal in expansion, and diminished Heart: s1s2 heard. regular. No murmur/rub appreciated. Abdomen: Soft. Nondistended. Nontender. Bowel sounds heard. Neuro: asterexis-; sensation b/l intact. Skin: rash-; ecchymosis - Musculoskeletal: joint effusion -; cyanosis-; lower extremitity edema: + Genitourinary/rectal: FMS: - fernández:- Breast: deferred Weight Current Weight Dosing Weight: 122.4 kg (07/10/23) Current Weight: 122.7 kg (07/15/23) Current Weight: 124.5 kg (07/14/23) Medications Medications (27) Active Scheduled: (19) albuterol - ipratropium 2.5 mg-0.5 mg/3 mL Inhal Ingris UD 3 mL, Inhalation, QIDRT clotrimazole topical 1% Cream 1 cristopher, Topical, BID diltiazem 60 mg tablet 60 mg 1 tab(s), Oral, q8hr docusate sodium 100 mg Capsule 100 mg 1 cap(s), Oral, TID ferrous sulfate 325 mg Tablet 325 mg 1 tab(s), Oral, qDay heparin 5,000 units/mL (1 mL) vial 5,000 unit(s) 1 mL, Subcutaneous, q8h insulin glargine 22 unit(s) 0.22 mL, Subcutaneous (INT), qHS insulin lispro 100 units/mL Soln (3 mL) 6 unit(s) 0.06 mL, Subcutaneous, with breakfast insulin lispro 100 units/mL Soln (3 mL) 6 unit(s) 0.06 mL, Subcutaneous, with lunch insulin lispro 100 units/mL Soln (3 mL) 6 unit(s) 0.06 mL, Subcutaneous, with supper insulin lispro 100 units/mL Soln (3 mL) Give 0-15 units/dose, Subcutaneous, TIDAC levothyroxine 200 mcg Tablet 200 mcg 1 tab(s), Oral, qDay levothyroxine 50 mcg tablet 50 mcg 1 tab(s), Oral, qDayAC lidocaine patch REMOVAL 1 EA, Miscellaneous, q24h lidocaine topical 4% patch 1 patch(es), Transdermal, q24h metoprolol succinate 25 mg ER tablet 75 mg 3 tab(s), Oral, BID midodrine 5 mg tablet 5 mg 1 tab(s), Oral, TID pantoprazole 40 mg EC tablet 40 mg 1 tab(s), Oral, qDayAC rosuvastatin 20 mg tablet 20 mg 1 tab(s), Oral, qHS Continuous: (0) PRN: (8) acetaminophen 325 mg Tablet 650 mg 2 tab(s), Oral, q4h albuterol - ipratropium 2.5 mg-0.5 mg/3 mL Inhal Ingris UD 3 mL, Inhalation, q2hRT albuterol 0.083% Soln UD (2.5mg/3 mL) 2.5 mg 3 mL, Inhalation, q4hRT bisacodyl 10 mg Suppository 10 mg 1 supp, Rectal, Once dextrose 50% Solution Disp syringe 50 mL 12.5 gram(s) 25 mL, IV Push, AsDirected ondansetron 2 mg/ 1 mL 2 mL INJ 4 mg 2 mL, IV Push, q4h polyethylene glycol 3350 - UD packet 17 gram(s) 15 mL, Oral, BID tramadol 50 mg Tablet 25 mg 0.5 tab(s), Oral, q12h Lab Results 07/15 04:12 Glucose Level: 159 H Sodium Level: 137 Potassium Level: 3.7 BUN: 49.0 H Creatinine Lvl (s): 1.73 H 07/14 20:15 Potassium Level: 4.0 07/14 05:44 WBC: 7.0 Hgb: 10.1 L Hct: 30.1 L Platelet: 224 Neutrophil %: 80.2 H Glucose Level: 159 H Sodium Level: 136 Potassium Level: 3.9 BUN: 53.0 H Creatinine Lvl (s): 2.10 H EKG No qualifying data available. Assessment/Plan Atrial fibrillation Breast cancer CHF (congestive heart failure) Chronic kidney disease (CKD) COPD (chronic obstructive pulmonary disease) Diabetes HTN (hypertension) Hyperlipidemia Hypothyroidism Hypoxia On home oxygen therapy Recurrent left pleural effusion s/p left minithoracotomy, pleural lysis of adhesions, a combinationof mechanical and chemical pleurodesis 07/10/2023 Time Spent Acute kidney injury on chronic kidney disease I suspect baseline creatinine 1.7 Pleural effusion Hypotension Hypoxia A-fib atrial fibrillation plan Renal function trending close to baseline. Overall breathing status is reasonable but she will needmaintenance diuretics.Hemodynamically better therefore with good stop midodrine and see how her blood pressures trend. Will start IV Lasix 20 mg every 12. [1] Progress Note; SOURAV VAZ MD 07/15/2023 16:32 EDT Digitally Signed by SOURAV VAZ MD on 07/16/2023 09:03 AM [facility] [id number] Note ORIGINAL EXAMINATION: ONE XRAY VIEW OF THE CHEST07/16/2023 8:13 am COMPARISON: 07/16/2023 HISTORY: ORDERING SYSTEM PROVIDED HISTORY: Reason for Exam: d/c chest tubes FINDINGS: Enlarged cardiac silhouette noted. Vascular structures appear within normal limits. Bibasilar consolidations noted. Moderate pleural effusions. No pneumothorax identified. No aggressive osseous lesions identified. IMPRESSION: Persistent bilateral pleural effusions and bibasilar consolidations. Follow to resolution Interpreted by: Basim Holland MD Preliminary Report By: Basim Holland MD Electronically signed By Basim Holland MD Dictated Date: 07/16/2023 8:31:52 AM Prelim Date: 07/16/2023 8:32:48 AM Sign Date: 07/16/2023 8:32:48 AM Ordering Provider: LIAT CARDONAORJordanaWyandot Memorial [id number] Note Date of Service 07/16/2023 Chief Complaint diabetes management Subjective 83-year-old female with past medical history significant for recurrent left pleural effusion, insulin-dependent diabetes mellitus, atrial fibrillation, heart failure with preserved ejection fraction,hypertension, hyperlipidemia and hypothyroidism admitted 07/10/2023 to undergo left exploratory video-assisted thoracoscopic surgery with left minithoracotomy, pleural lysis of adhesions and a combination of mechanical and chemical pleurodesis. Hospitalist medicine service was consulted postoperatively for diabetic management. Patient normally takes glimepiride 1 mg daily and Tresiba 40 units daily. Since surgery there has been multiple complications including CHF, acute hypoxic respiratory failure and an SABRINA. Patient has been seen by nephrology, cardiology and pulmonary. Blood sugars improved. Today she was escalated to 12 L L high flow with CXR showing worsening CHF. Today she has shortness of breath and dry cough. She is very edematous and not on her home blood thinner. Denies chest pain, nausea, vomiting, diarrhea, headache and dizziness. Plan of care was discussed with patient and nursing staff. Objective Vitals and Measurements T: 36.9 C (Oral) TMIN: 36.7 C (Oral) TMAX: 37.4 C (Oral) HR: 87(Monitored) RR: 20 BP: 133/63 SpO2: 95% Intake and Output 7AM Yesterday to 7AM Today Intake and Output (Last 24 hours) Intake Oral Intake 900.00 Output Chest Tube Output: 170.00 Urine Voided 1202.00 Stool Count 1.00 Total Summary Total Intake 900.00 Total Output 1372.00 Fluid Balance -472.00 Physical Exam General: Alert, appears comfortable heart: RRR, S1/S2. Lungs: Diminished breath sounds with bibasilar crackles B/L, tachypneic, left chest tube in place Abdomen: Soft, nontender, nondistended, + bowel sounds Extremities: +2 pitting edema bilaterally, +2 dorsalis pedis pulses bilaterally. Weight Current Weight Dosing Weight: 122.4 kg (07/10/23) Current Weight: 122.7 kg (07/15/23) Current Weight: 124.5 kg (07/14/23) Medications Medications (27) Active Scheduled: (19) albuterol - ipratropium 2.5 mg-0.5 mg/3 mL Inhal Ingris UD 3 mL, Inhalation, QIDRT clotrimazole topical 1% Cream 1 cristopher, Topical, BID diltiazem 60 mg tablet 60 mg 1 tab(s), Oral, q8hr docusate sodium 100 mg Capsule 100 mg 1 cap(s), Oral, TID ferrous sulfate 325 mg Tablet 325 mg 1 tab(s), Oral, qDay heparin 5,000 units/mL (1 mL) vial 5,000 unit(s) 1 mL, Subcutaneous, q8h insulin glargine 22 unit(s) 0.22 mL, Subcutaneous (INT), qHS insulin lispro 100 units/mL Soln (3 mL) 6 unit(s) 0.06 mL, Subcutaneous, with breakfast insulin lispro 100 units/mL Soln (3 mL) 6 unit(s) 0.06 mL, Subcutaneous, with lunch insulin lispro 100 units/mL Soln (3 mL) 6 unit(s) 0.06 mL, Subcutaneous, with supper insulin lispro 100 units/mL Soln (3 mL) Give 0-15 units/dose, Subcutaneous, TIDAC levothyroxine 200 mcg Tablet 200 mcg 1 tab(s), Oral, qDay levothyroxine 50 mcg tablet 50 mcg 1 tab(s), Oral, qDayAC lidocaine patch REMOVAL 1 EA, Miscellaneous, q24h lidocaine topical 4% patch 1 patch(es), Transdermal, q24h metoprolol succinate 25 mg ER tablet 75 mg 3 tab(s), Oral, BID midodrine 5 mg tablet 5 mg 1 tab(s), Oral, TID pantoprazole 40 mg EC tablet 40 mg 1 tab(s), Oral, qDayAC rosuvastatin 20 mg tablet 20 mg 1 tab(s), Oral, qHS Continuous: (0) PRN: (8) acetaminophen 325 mg Tablet 650 mg 2 tab(s), Oral, q4h albuterol - ipratropium 2.5 mg-0.5 mg/3 mL Inhal Ingris UD 3 mL, Inhalation, q2hRT albuterol 0.083% Soln UD (2.5mg/3 mL) 2.5 mg 3 mL, Inhalation, q4hRT bisacodyl 10 mg Suppository 10 mg 1 supp, Rectal, Once dextrose 50% Solution Disp syringe 50 mL 12.5 gram(s) 25 mL, IV Push, AsDirected ondansetron 2 mg/ 1 mL 2 mL INJ 4 mg 2 mL, IV Push, q4h polyethylene glycol 3350 - UD packet 17 gram(s) 15 mL, Oral, BID tramadol 50 mg Tablet 25 mg 0.5 tab(s), Oral, q12h Lab Results 07/15 04:12 Glucose Level: 159 H Sodium Level: 137 Potassium Level: 3.7 BUN: 49.0 H Creatinine Lvl (s): 1.73 H 07/14 20:15 Potassium Level: 4.0 07/14 05:44 WBC: 7.0 Hgb: 10.1 L Hct: 30.1 L Platelet: 224 Neutrophil %: 80.2 H Glucose Level: 159 H Sodium Level: 136 Potassium Level: 3.9 BUN: 53.0 H Creatinine Lvl (s): 2.10 H EKG No qualifying data available. Assessment/Plan Atrial fibrillation Breast cancer CHF (congestive heart failure) Chronic kidney disease (CKD) COPD (chronic obstructive pulmonary disease) Diabetes HTN (hypertension) Hyperlipidemia Hypothyroidism Hypoxia On home oxygen therapy Recurrent left pleural effusion s/p left minithoracotomy, pleural lysis of adhesions, a combinationof mechanical and chemical pleurodesis 07/10/2023 SABRINA Atrial fibrillation Edema -Blood sugars have been 144 -219 in the past 24 hours. He has not required any further sliding scale insulin though he required 15 of SSI in the past 24 hours. Continue increased SSI at high scale. Continue increased Lantus. If blood sugars start to increase consider restarting her glimepiride, butwith SABRINA would hold off on this but consider starting at a lower dose tomorrow if blood sugars are still uncontrolled. -With edema it appears that CT surgery has ordered lower extremity ultrasounds. -Rest of the management and diuresis as per ICU and cardiothoracic surgery team. Thank you for allowing us to participate in the care of this patient. Will follow. Digitally Signed by JOSE RAMON GOLDSMITH DO on 07/16/2023 09:22 AM [facility] [id number] Note* Exam Date Time Procedure Performing Provider Status 07/16/23 6:57 AM VL Venous US/Doppler Both Legs(for DVT) Auth (Verified) [facility] 04-30-2024 Note ORIGINAL EXAMINATION: ONE XRAY VIEW OF THE CHEST 07/16/2023 5:34 am COMPARISON: Chest x-ray on 07/15/2023 HISTORY: ORDERING SYSTEM PROVIDED HISTORY: Reason for Exam: Vascular congestion FINDINGS: Cardiomegaly is stable. The pulmonary vascular congestion is increased since the prior day. Small to moderate-sized bilateral pleural effusions are present. There is no pneumothorax. IMPRESSION: Worsening congestive heart failure. Interpreted by: Asif Perry MD Preliminary Report By: Asif Perry MD Electronically signed By Asif Perry MD Dictated Date: 07/16/2023 5:41:04 AM Prelim Date: 07/16/2023 5:42:14 AM Sign Date: 07/16/2023 5:42:14 AM Ordering Provider: [id number] Cardiology Progress note Subjective No acute overnight events, patient denies chest pain or dyspnea currently. Objective Vitals and Measurements T: 37.2 C (Oral) TMIN: 36.7 C (Oral) TMAX: 37.4 C (Oral) HR: 101(Monitored) RR: 20 BP: 133/64 SpO2: 95% WT: 122.7 kg Intake and Output 7AM Yesterday to 7AM Today Intake and Output (Last 24 hours) Intake Oral Intake 660.00 Output Chest Tube Output: 180.00 Urine Voided 302.00 Urinary Catheter Output: 1200.00 Stool Count 1.00 Total Summary Total Intake 660.00 Total Output 1682.00 Fluid Balance -1022.00 Physical Exam General Appearance: NAD Head: NCAT EENT: no gross abnormalities Neck: no JVD appreciated Cardiac: Tachycardic, irregularly irregular Lungs: CTAB Abdomen: soft, NT/ND Musculoskeletal: ROM wnl Extremities: no pitting edema Neurological: no focal deficits Skin: warm, dry Psychiatric: normal mentation Weight Current Weight Dosing Weight: 122.4 kg (07/10/23) Current Weight: 122.7 kg (07/15/23) Current Weight: 124.5 kg (07/14/23) Medications Medications (29) Active Scheduled: (21) albumin human 25% (50 mL) vial 12.5 gram(s) 50 mL, IV Piggyback (MED), q8h albuterol - ipratropium 2.5 mg-0.5 mg/3 mL Inhal Ingris UD 3 mL, Inhalation, QIDRT clotrimazole topical 1% Cream 1 cristopher, Topical, BID diltiazem 60 mg tablet 60 mg 1 tab(s), Oral, q8hr docusate sodium 100 mg Capsule 100 mg 1 cap(s), Oral, TID ferrous sulfate 325 mg Tablet 325 mg 1 tab(s), Oral, qDay heparin 5,000 units/mL (1 mL) vial 5,000 unit(s) 1 mL, Subcutaneous, q8h insulin glargine 22 unit(s) 0.22 mL, Subcutaneous (INT), qHS insulin lispro 100 units/mL Soln (3 mL) 6 unit(s) 0.06 mL, Subcutaneous, with breakfast insulin lispro 100 units/mL Soln (3 mL) 6 unit(s) 0.06 mL, Subcutaneous, with lunch insulin lispro 100 units/mL Soln (3 mL) 6 unit(s) 0.06 mL, Subcutaneous, with supper insulin lispro 100 units/mL Soln (3 mL) Give 0-15 units/dose, Subcutaneous, TIDAC levothyroxine 200 mcg Tablet 200 mcg 1 tab(s), Oral, qDay levothyroxine 50 mcg tablet 50 mcg 1 tab(s), Oral, qDayAC lidocaine patch REMOVAL 1 EA, Miscellaneous, q24h lidocaine topical 4% patch 1 patch(es), Transdermal, q24h metoprolol succinate 25 mg ER tablet 75 mg 3 tab(s), Oral, BID midodrine 5 mg tablet 5 mg 1 tab(s), Oral, TID mupirocin 2% Ointment 22 Gram(s) tube 1 cristopher, Nostril, each, q12h pantoprazole 40 mg EC tablet 40 mg 1 tab(s), Oral, qDayAC rosuvastatin 20 mg tablet 20 mg 1 tab(s), Oral, qHS Continuous: (0) PRN: (8) acetaminophen 325 mg Tablet 650 mg 2 tab(s), Oral, q4h albuterol - ipratropium 2.5 mg-0.5 mg/3 mL Inhal Ingris UD 3 mL, Inhalation, q2hRT albuterol 0.083% Soln UD (2.5mg/3 mL) 2.5 mg 3 mL, Inhalation, q4hRT bisacodyl 10 mg Suppository 10 mg 1 supp, Rectal, Once dextrose 50% Solution Disp syringe 50 mL 12.5 gram(s) 25 mL, IV Push, AsDirected ondansetron 2 mg/ 1 mL 2 mL INJ 4 mg 2 mL, IV Push, q4h polyethylene glycol 3350 - UD packet 17 gram(s) 15 mL, Oral, BID tramadol 50 mg Tablet 25 mg 0.5 tab(s), Oral, q12h Lab Results 07/14 05:44 WBC: 7.0 Hgb: 10.1 L Hct: 30.1 L Platelet: 224 Neutrophil %: 80.2 H Glucose Level: 159 H Sodium Level: 136 Potassium Level: 3.9 BUN: 53.0 H Creatinine Lvl (s): 2.10 H EKG No qualifying data available. Assessment/Plan Orders: metoprolol, Start: 07/15/23 17:54:00 EDT, Dose = 75 mg, = 3 tab(s), Oral, BID, Hold if SBP (mmHg) < 110, Hold if HR (bpm) < 60, give with food/meal, 0, 07/15/23 17:54:00 EDT -Longstanding persistent atrial fibrillation on Eliquis, intolerant to amiodarone, currently on rate control strategy, failed DCCV in 2019 -Acute on chronic diastolic heart failure EF 60% -SABRINA on CKD (unknown baseline) -Transient hypotension -Recurrent left pleural effusion s/p left minithoracotomy, pleural lysis of adhesions, a combination of mechanical and chemical pleurodesis -Severe concentric LVH -Hypertension -Hyperlipidemia Plan Patient continues to be tachycardic, will uptitrate beta-blockers to 75 mg twice daily. Recommend resuming anticoagulation when possible. -Use midodrine as needed for hypotension and for diuresis assistance as well as albumin -Continue to hold off on Entresto, will eventually benefit from Aldactone/Jardiance once BP and kidney function permits for diastolic heart failure. -Will obtain limited echo to assess for strain pattern to rule out infiltrative cardiomyopathy. -Rest of management per primary team Digitally Signed by RENATA CANELA MD on 07/15/2023 05:56 PM Digitally Signed by RENATA CANELA MD on 07/15/2023 06:05 PM [facility] [id number] Nephrology Progress note Date of Service 07-14 Subjective resting Objective Vitals and Measurements T: 37.1 C (Oral) TMIN: 36.7 C (Oral) TMAX: 37.4 C (Oral) HR: 103(Monitored) RR: 20 BP: 139/58 SpO2:94% WT: 122.7 kg Intake and Output 7AM Yesterday to 7AM Today Intake and Output (Last 24 hours) Intake Oral Intake 660.00 Output Chest Tube Output: 180.00 Urine Voided 302.00 Urinary Catheter Output: 1200.00 Stool Count 1.00 Total Summary Total Intake 660.00 Total Output 1682.00 Fluid Balance -1022.00 Physical Exam General: lesss sob HEENT: Icterus-; Pallor + Neck: No swelling. JVD normal. Chest: Chest equal in expansion, and diminished Heart: s1s2 heard. regular. No murmur/rub appreciated. Abdomen: Soft. Nondistended. Nontender. Bowel sounds heard. Neuro: asterexis-; sensation b/l intact. Skin: rash-; ecchymosis - Musculoskeletal: joint effusion -; cyanosis-; lower extremitity edema: + Genitourinary/rectal: FMS: - fernández:- Breast: deferred Weight Current Weight Dosing Weight: 122.4 kg (07/10/23) Current Weight: 122.7 kg (07/15/23) Current Weight: 124.5 kg (07/14/23) Medications Medications (29) Active Scheduled: (21) albumin human 25% (50 mL) vial 12.5 gram(s) 50 mL, IV Piggyback (MED), q8h albuterol - ipratropium 2.5 mg-0.5 mg/3 mL Inhal Ingris UD 3 mL, Inhalation, QIDRT clotrimazole topical 1% Cream 1 cristopher, Topical, BID diltiazem 60 mg tablet 60 mg 1 tab(s), Oral, q8hr docusate sodium 100 mg Capsule 100 mg 1 cap(s), Oral, TID ferrous sulfate 325 mg Tablet 325 mg 1 tab(s), Oral, qDay heparin 5,000 units/mL (1 mL) vial 5,000 unit(s) 1 mL, Subcutaneous, q8h insulin glargine 22 unit(s) 0.22 mL, Subcutaneous (INT), qHS insulin lispro 100 units/mL Soln (3 mL) 6 unit(s) 0.06 mL, Subcutaneous, with breakfast insulin lispro 100 units/mL Soln (3 mL) 6 unit(s) 0.06 mL, Subcutaneous, with lunch insulin lispro 100 units/mL Soln (3 mL) 6 unit(s) 0.06 mL, Subcutaneous, with supper insulin lispro 100 units/mL Soln (3 mL) Give 0-15 units/dose, Subcutaneous, TIDAC levothyroxine 200 mcg Tablet 200 mcg 1 tab(s), Oral, qDay levothyroxine 50 mcg tablet 50 mcg 1 tab(s), Oral, qDayAC lidocaine patch REMOVAL 1 EA, Miscellaneous, q24h lidocaine topical 4% patch 1 patch(es), Transdermal, q24h metoprolol succinate 50 mg ER tablet 50 mg 1 tab(s), Oral, BID midodrine 5 mg tablet 5 mg 1 tab(s), Oral, TID mupirocin 2% Ointment 22 Gram(s) tube 1 cristopher, Nostril, each, q12h pantoprazole 40 mg EC tablet 40 mg 1 tab(s), Oral, qDayAC rosuvastatin 20 mg tablet 20 mg 1 tab(s), Oral, qHS Continuous: (0) PRN: (8) acetaminophen 325 mg Tablet 650 mg 2 tab(s), Oral, q4h albuterol - ipratropium 2.5 mg-0.5 mg/3 mL Inhal Ingris UD 3 mL, Inhalation, q2hRT albuterol 0.083% Soln UD (2.5mg/3 mL) 2.5 mg 3 mL, Inhalation, q4hRT bisacodyl 10 mg Suppository 10 mg 1 supp, Rectal, Once dextrose 50% Solution Disp syringe 50 mL 12.5 gram(s) 25 mL, IV Push, AsDirected ondansetron 2 mg/ 1 mL 2 mL INJ 4 mg 2 mL, IV Push, q4h polyethylene glycol 3350 - UD packet 17 gram(s) 15 mL, Oral, BID tramadol 50 mg Tablet 25 mg 0.5 tab(s), Oral, q12h Lab Results 07/14 05:44 WBC: 7.0 Hgb: 10.1 L Hct: 30.1 L Platelet: 224 Neutrophil %: 80.2 H Glucose Level: 159 H Sodium Level: 136 Potassium Level: 3.9 BUN: 53.0 H Creatinine Lvl (s): 2.10 H 07/13 05:37 WBC: 9.4 Hgb: 10.8 L Hct: 31.9 L Platelet: 232 Neutrophil %: 84.0 H Glucose Level: 199 H Sodium Level: 136 Potassium Level: 4.6 BUN: 48.0 H Creatinine Lvl (s): 2.12 H EKG No qualifying data available. Assessment/Plan Atrial fibrillation Breast cancer CHF (congestive heart failure) Chronic kidney disease (CKD) COPD (chronic obstructive pulmonary disease) Diabetes HTN (hypertension) Hyperlipidemia Hypothyroidism Hypoxia On home oxygen therapy Recurrent left pleural effusion s/p left minithoracotomy, pleural lysis of adhesions, a combinationof mechanical and chemical pleurodesis 07/10/2023 Time Spent Acute kidney injury on chronic kidney disease I suspect baseline creatinine 1.7 Pleural effusion Hypotension Hypoxia A-fib atrial fibrillation plan Breathing status is improving. Continue current management. Renal functions are steady. Should be reasonable to consider some diuresis ongoing. [1] Progress Note; SOURAV VAZ MD 07/14/2023 09:45 EDT Digitally Signed by SOURAV VAZ MD on 07/15/2023 04:33 PM [id number] Note Date of Service 07/15/2023 Chief Complaint This is an 79-year-old female with a past medical history of hypertension, atrial fibrillation, HFpEF, COPD, multifactorial pulmonary hypertension, former smoker on nocturnal oxygen with unclear rate, with hyperlipidemia, hypothyroidism, diabetes, recurrent left pleural effusions status post multiple thoracenteses who presented to [facility] 07/[facility] for an elective LVAD/minithoracotomy/decortication and underwent mechanical and chemical pleurodesis on 07/10/[address] Gardiner. Postoperatively, the patient was hypoxemic requiring return to the [facility] SICU and placed on high flow nasalcannula. Chest tubes in place. Last 24 hours: The patient is using noninvasive ventilation overnight. She remains on 10 L salter cannula. Chest x-ray showing bilateral congestion. The patient denies any sputum production, she doeshave a cough. She is diffusely weak without any pain with deep inspiration. Objective Vitals and Measurements T: 36.9 C (Oral) TMIN: 36.7 C (Oral) TMAX: 37.0 C (Oral) HR: 93(Monitored) RR: 22 BP: 115/55 SpO2: 93% WT: 122.7 kg Intake and Output 7AM Yesterday to 7AM Today Intake and Output (Last 24 hours) Intake Oral Intake 780.00 Supplement Intake 60.00 Output Chest Tube Output: 180.00 Urinary Catheter Output: 2050.00 Stool Count 1.00 Total Summary Total Intake 840.00 Total Output 2230.00 Fluid Balance -1390.00 Physical Exam HEENT: Oral mucosa is pink and moist Eyes: Pupils equal and reactive. Neck: No JVD no adenopathy. Heart: Regular rate and rhythm Lungs: Diminished breath sounds bilaterally. No wheezes. Chest wall: Moving symmetrically with respiration. Abdomen: Soft, nondistended, no organomegaly, no tenderness no rigidity Lower extremities: No edema or erythema. Neuro: Alert follows command, moves all 4 extremities, diffusely weak. Weight Current Weight Dosing Weight: 122.4 kg (07/10/23) Current Weight: 122.7 kg (07/15/23) Current Weight: 124.5 kg (07/14/23) Medications Medications (29) Active Scheduled: (21) albumin human 25% (50 mL) vial 12.5 gram(s) 50 mL, IV Piggyback (MED), q8h albuterol - ipratropium 2.5 mg-0.5 mg/3 mL Inhal Ingris UD 3 mL, Inhalation, QIDRT clotrimazole topical 1% Cream 1 cristopher, Topical, BID diltiazem 60 mg tablet 60 mg 1 tab(s), Oral, q8hr docusate sodium 100 mg Capsule 100 mg 1 cap(s), Oral, TID ferrous sulfate 325 mg Tablet 325 mg 1 tab(s), Oral, qDay heparin 5,000 units/mL (1 mL) vial 5,000 unit(s) 1 mL, Subcutaneous, q8h insulin glargine 22 unit(s) 0.22 mL, Subcutaneous (INT), qHS insulin lispro 100 units/mL Soln (3 mL) 6 unit(s) 0.06 mL, Subcutaneous, with breakfast insulin lispro 100 units/mL Soln (3 mL) 6 unit(s) 0.06 mL, Subcutaneous, with lunch insulin lispro 100 units/mL Soln (3 mL) 6 unit(s) 0.06 mL, Subcutaneous, with supper insulin lispro 100 units/mL Soln (3 mL) Give 0-15 units/dose, Subcutaneous, TIDAC levothyroxine 200 mcg Tablet 200 mcg 1 tab(s), Oral, qDay levothyroxine 50 mcg tablet 50 mcg 1 tab(s), Oral, qDayAC lidocaine patch REMOVAL 1 EA, Miscellaneous, q24h lidocaine topical 4% patch 1 patch(es), Transdermal, q24h metoprolol succinate 50 mg ER tablet 50 mg 1 tab(s), Oral, BID midodrine 5 mg tablet 5 mg 1 tab(s), Oral, TID mupirocin 2% Ointment 22 Gram(s) tube 1 cristopher, Nostril, each, q12h pantoprazole 40 mg EC tablet 40 mg 1 tab(s), Oral, qDayAC rosuvastatin 20 mg tablet 20 mg 1 tab(s), Oral, qHS Continuous: (0) PRN: (8) acetaminophen 325 mg Tablet 650 mg 2 tab(s), Oral, q4h albuterol - ipratropium 2.5 mg-0.5 mg/3 mL Inhal Ingris UD 3 mL, Inhalation, q2hRT albuterol 0.083% Soln UD (2.5mg/3 mL) 2.5 mg 3 mL, Inhalation, q4hRT bisacodyl 10 mg Suppository 10 mg 1 supp, Rectal, Once dextrose 50% Solution Disp syringe 50 mL 12.5 gram(s) 25 mL, IV Push, AsDirected ondansetron 2 mg/ 1 mL 2 mL INJ 4 mg 2 mL, IV Push, q4h polyethylene glycol 3350 - UD packet 17 gram(s) 15 mL, Oral, BID tramadol 50 mg Tablet 25 mg 0.5 tab(s), Oral, q12h Lab Results 07/14 05:44 WBC: 7.0 Hgb: 10.1 L Hct: 30.1 L Platelet: 224 Neutrophil %: 80.2 H Glucose Level: 159 H Sodium Level: 136 Potassium Level: 3.9 BUN: 53.0 H Creatinine Lvl (s): 2.10 H 07/13 05:37 WBC: 9.4 Hgb: 10.8 L Hct: 31.9 L Platelet: 232 Neutrophil %: 84.0 H Glucose Level: 199 H Sodium Level: 136 Potassium Level: 4.6 BUN: 48.0 H Creatinine Lvl (s): 2.12 H EKG No qualifying data available. Assessment/Plan Atrial fibrillation Breast cancer CHF (congestive heart failure) Chronic kidney disease (CKD) COPD (chronic obstructive pulmonary disease) Diabetes HTN (hypertension) Hyperlipidemia Hypothyroidism Hypoxia On home oxygen therapy Recurrent left pleural effusion s/p left minithoracotomy, pleural lysis of adhesions, a combinationof mechanical and chemical pleurodesis 07/10/2023 1. Acute postoperative hypoxemia at large due to bilateral extensive atelectasis. 2. Recurrent left-sided pleural effusion status post minithoracotomy with chemical and mechanical pleurodesis. 3. Acute kidney injury, suspect chronic kidney disease. 4. History of congestive heart failure with preserved LV Margret function atrial fibrillation's. 5. Diabetes mellitus type 2 6. COPD without exacerbation. 7. Obesity, probable obstructive sleep apnea. 8. History of hypertension. Plan: 1. Continue to monitor the patient at the cardiothoracic intensive care unit. 2. BiPAP 15/8 cmH2O at night and as needed. This will help with recruitment. Wean nasal oxygen to target a goal SpO2 of 92 to 96%. 3. bronchodilators albuterol/ipratropium 4 times daily and as needed 4. On metoprolol 50 mg p.o. twice daily, heart rate is well-controlled, diltiazem 60 mg p.o. every 8 hours. 5. Continue current meds to control pain. 6. Heparin for DVT prophylaxis and Protonix for GI prophylaxis. 7. Diuretics and antihypertensives per cardiology and thoracic surgery teams. 8. Mobilization as tolerated. This will also help with atelectasis. Patient has significant atelectasis seen again on chest x-ray and ultrasound. There is a small right-sided pleural effusion with large atelectasis. The patient demonstrates understanding of incentivespirometer technique, but has very small lung volumes with bedside demonstration. Digitally Signed by NIGEL SALCEDO MD on 07/15/2023 11:45 AM [id number] Note Date of Service 07/15/2023 Chief Complaint diabetes management Subjective 83-year-old female with past medical history significant for recurrent left pleural effusion, insulin-dependent diabetes mellitus, atrial fibrillation, heart failure with preserved ejection fraction,hypertension, hyperlipidemia and hypothyroidism admitted 07/10/2023 to undergo left exploratory video-assisted thoracoscopic surgery with left minithoracotomy, pleural lysis of adhesions and a combination of mechanical and chemical pleurodesis. Hospitalist medicine service was consulted postoperatively for diabetic management. Patient normally takes glimepiride 1 mg daily and Tresiba 40 units daily. Since surgery there has been multiple complications including CHF, acute hypoxic respiratory failure and an SABRINA. Patient has been seen by nephrology, cardiology and pulmonary. Blood sugars are still not optimal. Patient is still on 10 L high flow. Her only complaint today kami dry cough. She is very edematous and not on her home blood thinner. Denies chest pain, dyspnea, nausea, vomiting, diarrhea, headache and dizziness. Plan of care was discussed with patient and nursing staff. Please see consult note from 07/09 for further information. Objective Vitals and Measurements T: 36.9 C (Oral) TMIN: 36.7 C (Oral) TMAX: 37.0 C (Oral) HR: 88 RR: 19 BP: 112/38 SpO2: 95% WT: 122.7 kg Intake and Output 7AM Yesterday to 7AM Today Intake and Output (Last 24 hours) Intake Oral Intake 1740.00 Supplement Intake 60.00 Output Chest Tube Output: 180.00 Urinary Catheter Output: 2050.00 Stool Count 1.00 Total Summary Total Intake 1800.00 Total Output 2230.00 Fluid Balance -430.00 Physical Exam General: Alert, sitting up in chair heart: RRR, S1/S2. Lungs: Diminished breath sounds B/L, tachypneic, left chest tube in place Abdomen: Soft, nontender, nondistended, + bowel sounds Extremities: Positive pitting edema worse on left, +2 dorsalis pedis pulses bilaterally. Weight Current Weight Dosing Weight: 122.4 kg (07/10/23) Current Weight: 122.7 kg (07/15/23) Current Weight: 124.5 kg (07/14/23) Medications Medications (27) Active Scheduled: (19) albumin human 25% (50 mL) vial 12.5 gram(s) 50 mL, IV Piggyback (MED), q8h albuterol - ipratropium 2.5 mg-0.5 mg/3 mL Inhal Ingris UD 3 mL, Inhalation, QIDRT clotrimazole topical 1% Cream 1 cristopher, Topical, BID diltiazem 60 mg tablet 60 mg 1 tab(s), Oral, q8hr docusate sodium 100 mg Capsule 100 mg 1 cap(s), Oral, TID ferrous sulfate 325 mg Tablet 325 mg 1 tab(s), Oral, qDay furosemide 20 mg/2 mL vial 20 mg 2 mL, IV Push, q8hr heparin 5,000 units/mL (1 mL) vial 5,000 unit(s) 1 mL, Subcutaneous, q8h insulin glargine 22 unit(s) 0.22 mL, Subcutaneous (INT), qHS insulin lispro 100 units/mL Soln (3 mL) Give 0-15 units/dose, Subcutaneous, TIDAC levothyroxine 200 mcg Tablet 200 mcg 1 tab(s), Oral, qDay levothyroxine 50 mcg tablet 50 mcg 1 tab(s), Oral, qDayAC lidocaine patch REMOVAL 1 EA, Miscellaneous, q24h lidocaine topical 4% patch 1 patch(es), Transdermal, q24h metoprolol succinate 50 mg ER tablet 50 mg 1 tab(s), Oral, BID midodrine 5 mg tablet 5 mg 1 tab(s), Oral, TID mupirocin 2% Ointment 22 Gram(s) tube 1 cristopher, Nostril, each, q12h pantoprazole 40 mg EC tablet 40 mg 1 tab(s), Oral, qDayAC rosuvastatin 20 mg tablet 20 mg 1 tab(s), Oral, qHS Continuous: (0) PRN: (8) acetaminophen 325 mg Tablet 650 mg 2 tab(s), Oral, q4h albuterol - ipratropium 2.5 mg-0.5 mg/3 mL Inhal Ingris UD 3 mL, Inhalation, q2hRT albuterol 0.083% Soln UD (2.5mg/3 mL) 2.5 mg 3 mL, Inhalation, q4hRT bisacodyl 10 mg Suppository 10 mg 1 supp, Rectal, Once dextrose 50% Solution Disp syringe 50 mL 12.5 gram(s) 25 mL, IV Push, AsDirected ondansetron 2 mg/ 1 mL 2 mL INJ 4 mg 2 mL, IV Push, q4h polyethylene glycol 3350 - UD packet 17 gram(s) 15 mL, Oral, BID tramadol 50 mg Tablet 25 mg 0.5 tab(s), Oral, q12h Lab Results 07/14 05:44 WBC: 7.0 Hgb: 10.1 L Hct: 30.1 L Platelet: 224 Neutrophil %: 80.2 H Glucose Level: 159 H Sodium Level: 136 Potassium Level: 3.9 BUN: 53.0 H Creatinine Lvl (s): 2.10 H 07/13 05:37 WBC: 9.4 Hgb: 10.8 L Hct: 31.9 L Platelet: 232 Neutrophil %: 84.0 H Glucose Level: 199 H Sodium Level: 136 Potassium Level: 4.6 BUN: 48.0 H Creatinine Lvl (s): 2.12 H EKG No qualifying data available. Assessment/Plan Atrial fibrillation Breast cancer CHF (congestive heart failure) Chronic kidney disease (CKD) COPD (chronic obstructive pulmonary disease) Diabetes HTN (hypertension) Hyperlipidemia Hypothyroidism Hypoxia On home oxygen therapy Recurrent left pleural effusion s/p left minithoracotomy, pleural lysis of adhesions, a combinationof mechanical and chemical pleurodesis 07/10/2023 SABRINA Atrial fibrillation Edema -Blood sugars have been 159-226 in the past 24 hours. He required 15 of SSI in the past 24 hours. Continue increased SSI at high scale. Continue increased Lantus. Will order prandial insulin at 6 units 3 times daily. If blood sugars start to increase consider restarting her glimepiride, but with SABRINA would hold off on this but consider starting at a lower dose tomorrow if blood sugars are still uncontrolled. -With edema it appears that CT surgery has ordered lower extremity ultrasounds. -Rest of the management and diuresis as per ICU and cardiothoracic surgery team. Thank you for allowing us to participate in the care of this patient. Will follow. Digitally Signed by JOSE RAMON GOLDSMITH DO on 07/15/2023 01:31 PM [facility] [id number] Note ORIGINAL EXAMINATION: ONE XRAY VIEW OF THE CHEST 07/15/2023 5:34 am COMPARISON: 07/14/2023. HISTORY: ORDERING SYSTEM PROVIDED HISTORY: Reason for Exam: abn breath sounds IMPRESSION: Moderate cardiomegaly with bilateral congestion/edema and small bilateral effusions. No pneumothorax. No interval change. Interpreted by: Paulo Breen MD Preliminary Report By: Paulo Breen MD Electronically signed By Paulo Breen MD Dictated Date: 07/15/2023 6:06:17 AM Prelim Date: 07/15/2023 6:06:47 AM Sign Date: 07/15/2023 6:06:47 AM Ordering Provider[facility] Note ORIGINAL EXAMINATION: ONE XRAY VIEW OF THE CHEST 07/14/2023 5:50 am COMPARISON: None. HISTORY: ORDERING SYSTEM PROVIDED HISTORY: Reason for Exam: hypoxia FINDINGS: Mild cardiomegaly. Small bilateral effusions. Hazy airspace disease at the lung bases. IMPRESSION: Congestion/edema with small bilateral effusions. Interpreted by: Paulo Breen MD Preliminary Report By: Paulo Breen MD Electronically signed By Paulo Breen MD Dictated Date: 07/14/2023 6:18:01 AM Prelim Date: 07/14/2023 6:18:16 AM Sign Date: 07/14/2023 6:18:16 AM Ordering Provider: VIRY JIMENEZOhiohealth O'Blen[facility] [id number] Nephrology Consult note Date of Service 07-12 Reason for Consultation sabrina/ckd History of Present Illness Patient admitted here for shortness of breath. Being managed for pleural effusion with a chest tubeplaced on the left side. Noted to have acute kidney injury creatinine above 2.5 baseline creatininehovers around 1.7. She is noted to be hypotensive despite ejection fraction around 60%. Hemodynamics are slowly improving this morning. She is noted to be some degree of anemia hemoglobin around 11. No profound thrombocytopenia. No profound eosinophilia. Creatinine is around 2.3 to this morning. Electrolyte acid-base balance appears to be reasonable. There is a profound amount of hypoalbuminemia.Current medications relevant to my evaluation include Cardizem drip, patient was on Entresto in the outpatient setting. Review of Systems Unable to perform 10 point review of systems. somnolent Physical Exam Vitals and Measurements T: 37.2 C (Oral) TMIN: 36.6 C (Axillary) TMAX: 37.2 C (Oral) HR: 90(Apical) RR: 20 BP: 127/65 SpO2:90% SpO2: 91% WT: 125.1 kg Weight Current Weight Dosing Weight: 122.4 kg (07/10/23) Current Weight: 125.1 kg (07/13/23) Current Weight: 122.2 kg (07/12/23) General: sob. on bipap HEENT: Icterus-; Pallor + Neck: No swelling. JVD normal. Chest: Chest equal in expansion, and diminished Heart: s1s2 heard. regular. No murmur/rub appreciated. Abdomen: Soft. Nondistended. Nontender. Bowel sounds heard. Neuro: asterexis-; sensation b/l intact. Skin: rash-; ecchymosis - Musculoskeletal: joint effusion -; cyanosis-; lower extremitity edema: + Genitourinary/rectal: FMS: - fernández:- Breast: deferred Access: Lab Results 07/12 04:18 WBC: 8.4 Hgb: 11.4 L Hct: 33.8 L Platelet: 208 Neutrophil %: 83.5 H Glucose Level: 146 H Sodium Level: 137 Potassium Level: 4.2 BUN: 43.0 H Creatinine Lvl (s): 2.28 H 07/11 12:06 Glucose Level: 162 H Sodium Level: 138 Potassium Level: 4.5 BUN: 47.0 H Creatinine Lvl (s): 2.56 H 07/11 02:43 WBC: 9.8 Hgb: 11.6 L Hct: 36.2 Platelet: 217 Neutrophil %: 78.7 H Glucose Level: 154 H Sodium Level: 137 Potassium Level: 4.4 BUN: 40.0 H Creatinine Lvl (s): 2.52 H Assessment/Plan Atrial fibrillation Breast cancer CHF (congestive heart failure) Chronic kidney disease (CKD) COPD (chronic obstructive pulmonary disease) Diabetes HTN (hypertension) Hyperlipidemia Hypothyroidism Hypoxia On home oxygen therapy Recurrent left pleural effusion s/p left minithoracotomy, pleural lysis of adhesions, a combinationof mechanical and chemical pleurodesis 07/10/2023 Acute kidney injury on chronic kidney disease I suspect baseline creatinine 1.7 Pleural effusion Hypotension Hypoxia A-fib atrial fibrillation Plan At this point I think is appropriate to hold off Entresto given her acute kidney injury. Will have to keep systolic blood pressure bit above 110 as able. She is profoundly hypoalbuminemic and high propensity towards the re-collecting effusion. Once stable encourage high-protein diet. Consider albumin replacement about 12-1/2 g every 8 hours for about 6 doses. Can diurese as needed but allow for systolic blood pressure being above 110 systolic. Thank you very much Makey This document was composed using voice recognition software, therefore, typographical errors may exist. Problem List/Past Medical History Ongoing Atrial fibrillation Breast cancer CHF (congestive heart failure) Chronic kidney disease (CKD) COPD (chronic obstructive pulmonary disease) Diabetes HTN (hypertension) Hyperlipidemia Hypothyroidism Hypoxia On home oxygen therapy Pulmonary hypertension Recurrent left pleural effusion Historical No qualifying data Procedure/Surgical History Thoracentesis: 06/17/23 Cardioversion: 03/20/19 Cardiac catheterization, left heart: 05/31/14 Colonoscopy Cataract extraction Excision biopsy of skin lesion Hysterectomy Lumpectomy of right breast Medications Inpatient albuterol 2.5 mg/3 mL (0.083%) inhalation solution, 2.5 mg= 3 mL, Inhalation, q4hRT, PRN clotrimazole 1% topical cream, 1 cristopher, Topical, BID Dextrose 50% IV Push, 12.5 gram(s)= 25 mL, IV Push, AsDirected, PRN dilTIAZem 240 mg/24 hours oral capsule, extended release, 240 mg= 1 cap(s), Oral, qDay docusate, 100 mg= 1 cap(s), Oral, TID Dulcolax Laxative, 10 mg= 1 supp, Rectal, Once, PRN DuoNeb, 3 mL, Inhalation, q2hRT, PRN ferrous sulfate, 325 mg= 1 tab(s), Oral, qDay heparin 5000 units/mL injection, 5000 unit(s)= 1 mL, Subcutaneous, q8h HumaLOG 100 units/mL subcutaneous solution, Give 0-10 units/dose, Subcutaneous, TIDAC Lantus, 20 unit(s)= 0.2 mL, Subcutaneous (INT), qHS levothyroxine, 200 mcg= 1 tab(s), Oral, qDay levothyroxine, 50 mcg= 1 tab(s), Oral, qDayAC lidocaine (lidocaine Patch REMOVAL), 1 EA, Miscellaneous, q24h lidocaine 4% topical patch, 1 patch(es), Transdermal, q24h Miralax Powder Packet, 17 gram(s)= 15 mL, Oral, BID, PRN mupirocin 2% topical ointment, 1 cristopher, Nostril, each, q12h potassium chloride extended release, 20 mEq= 1 tab(s), Oral, Daily Protonix, 40 mg= 1 tab(s), Oral, qDayAC rosuvastatin, 20 mg= 1 tab(s), Oral, qHS Toprol-XL, 50 mg= 1 tab(s), Oral, BID traMADol, 25 mg= 0.5 tab(s), Oral, q12h, PRN Tylenol, 650 mg= 2 tab(s), Oral, q4h, PRN Zofran, 4 mg= 2 mL, IV Push, q4h, PRN Home acetaminophen 500 mg oral capsule, 1000 mg= 2 cap(s), Oral, q6hr, PRN albuterol MDI (90 mcg/inh) CFC free inhalation aerosol, Inhalation, q4h, PRN dilTIAZem 240 mg/24 hours oral capsule, extended release, 240 mg= 1 cap(s), Oral, qHS Eliquis 2.5 mg oral tablet, 2.5 mg= 1 tab(s), Oral, qHS Entresto 24 mg-26 mg oral tablet, 1 tab(s), Oral, BID ferrous sulfate 325 mg (65 mg elemental iron) oral delayed release tablet, 325 mg= 1 tab(s), Oral, qDay Gemtesa 75 mg oral tablet, 75 mg= 1 tab(s), Oral, qHS glimepiride 1 mg oral tablet, 1 mg= 1 tab(s), Oral, qDay Lasix 40 mg oral tablet, 40 mg= 1 tab(s), Oral, qAM levothyroxine 200 mcg (0.2 mg) oral tablet, 200 mcg= 1 tab(s), Oral, qDay levothyroxine 50 mcg (0.05 mg) oral tablet, 50 mcg= 1 tab(s), Oral, qDayAC Lopressor 100 mg oral tablet, 100 mg= 1 tab(s), Oral, BID Myrbetriq 50 mg oral tablet, extended release, 50 mg, Oral, BID potassium chloride 20 mEq oral tablet, extended release, 20 mEq= 1 tab(s), Oral, Daily rosuvastatin 20 mg oral tablet, 20 mg= 1 tab(s), Oral, qHS Tresiba FlexTouch 200 units/mL 3 mL subcutaneous solution, 40 unit(s), Subcutaneous, qDay Allergies sulfa (Rash) Social History Alcohol Use: Rare. Frequency: 1-2 times per year., 07/03/2023 Home/Environment Living situation: Home/Independent. Safe place to go: Yes. Domestic Concerns: None. Lives In: Single level home. Current Home Treatments Oxygen therapy., 07/10/2023 Nutrition/Health Type of diet: Low sodium. Caffeine intake amount: none. Appetite Good. Eating Difficulties None., 07/10/2023 Substance Abuse Use: Never., 04/19/2023 Tobacco Nicotine Use: Former smoker, quit more than 30 days ago. Type: Cigarettes. Started at age: 15 Years. Stopped at age: 53 Years., 07/03/2023 Family History Bladder cancer: Mother. Breast cancer: Daughter. Cancer of colon: Mother. Coronary artery disease: Sister. Skin cancer: Mother. Thyroid cancer: Daughter. Immunizations pneumococcal 23-valent vaccine(Pneumovax: 0 unknown unit (02/12/05) SARS-CoV-2 (COVID-19) mRNA-1273 vaccine: 0.3 unknown unit (07/12/21) SARS-CoV-2 (COVID-19) mRNA-1273 vaccine: 0 unknown unit (01/11/21) SARS-CoV-2 mRNA (tozinameran) vaccine: 0.5 unknown unit (05/02/20) SARS-CoV-2 mRNA (tozinameran) vaccine: 0.5 unknown unit (04/09/20) zoster vaccine, inactivated: 0 unknown unit (12/07/18) Digitally Signed by SOURAV VAZ MD on 07/13/2023 09:00 AM [id number] Note ORIGINAL EXAMINATION: ONE XRAY VIEW OF THE CHEST 07/13/2023 5:18 am COMPARISON: Chest x-ray 07/12/2023 HISTORY: ORDERING SYSTEM PROVIDED HISTORY: Reason for Exam: decreased breath sounds, hypoxia FINDINGS: Stable left basilar chest tube. Stable cardiomediastinal silhouette enlargement. Unchanged small bilateral pleural effusions with adjacent atelectasis/consolidation. No vascular congestion. No visualized residual left pneumothorax. Stable osseous structures. IMPRESSION: No visualized residual pneumothorax. Similar bilateral pleural effusions with adjacent bibasilar atelectasis/consolidation. Preliminary Report was Dictated by a Resident Interpreted by: Paulo Breen MD Preliminary Report By: Geena Johnson Electronically signed By Paulo Breen MD Dictated Date: 07/13/2023 5:44:59 AM Prelim Date: 07/13/2023 5:47:58 AM Sign Date: 07/13/2023 7:30:36 AM Ordering Provider: [facility]04-26-2024 Cardiology Consult note Date of Service 07/12/23 Reason for Consultation AFib Referring Physician Dr. Gallardo History of Present Illness Patient is a 83-year-old female with a past medical history of HFpEF, severe concentric LVH, persistent atrial fibrillation with failed DCCV in 2019 and intolerant to amiodarone being treated with rate control strategy, hypertension, hyperlipidemia, hypothyroidism, history of CKD, recurrent left-sided pleural effusions on as needed home oxygen who is admitted under CTS and underwent left minithoracotomy, pleural lysis of adhesions, and a combination of mechanical and chemical pleurodesis on 07/10/2023 for recurrent left-sided pleural effusion. Patient follows at [facility] and was last seen on 06/08. Most recent surface echo done in May showing EF of 60%, severe concentric LVH, mild TR. Stress test done back in March 2022 with negative for inducible ischemia. She currently has left-sided chest tubes. She remains in persistent atrial fibrillation and Eliquis is on hold due to recent surgery. Patient became hypotensive this morning with systolic blood pressure in 70s however currently BP is 119/70. Repeat surface echo is pending. SABRINA on CKD noted Lasix has been switched to 40 IV twice daily, chest x-ray does show pulmonary congestion. Cardiology has been consulted for atrial fibrillation management. Review of Systems 12 point ROS reviewed and negative unless stated above. Physical Exam Vitals and Measurements T: 37.0 C (Oral) TMIN: 36.7 C (Oral) TMAX: 37.3 C (Oral) HR: 96(Monitored) RR: 20 BP: 72/62 SpO2: 94% WT: 122.2 kg Weight Current Weight Dosing Weight: 122.4 kg (07/10/23) Current Weight: 122.2 kg (07/12/23) GENERAL: Pt is comfortable in bed. High flow nasal cannula PSYCH: Alert and oriented HEENT: Sclera clear, trachea midline NEURO: No focal neurologic deficits ENDO: Thyroid is non-palpable NECK: Mild JVD CVS: S1 & S2 audible, irregular irregular rhythm, No Murmurs LUNG: Decreased breath sounds bilaterally GI: + BS, Abdomen is Soft EXTREMITIES: Trace lower extremity edema SKIN: Warm & Dry Lab Results 07/11 02:43 WBC: 9.8 Hgb: 11.6 L Hct: 36.2 Platelet: 217 Neutrophil %: 78.7 H Glucose Level: 154 H Sodium Level: 137 Potassium Level: 4.4 BUN: 40.0 H Creatinine Lvl (s): 2.52 H 07/10 02:23 WBC: 9.2 Hgb: 11.9 L Hct: 36.4 Platelet: 234 Neutrophil %: 78.3 H Glucose Level: 160 H Sodium Level: 139 Potassium Level: 4.5 BUN: 29.0 H Creatinine Lvl (s): 1.74 H Assessment/Plan -Longstanding persistent atrial fibrillation on Eliquis, intolerant to amiodarone, currently on rate control strategy, failed DCCV in 2019 -SABRINA on CKD (unknown baseline) -Transient hypotension -HFpEF EF 60% -Recurrent left pleural effusion s/p left minithoracotomy, pleural lysis of adhesions, a combination of mechanical and chemical pleurodesis -Severe concentric LVH -Hypertension -Hyperlipidemia Plan -Patient appears to be in rate controlled persistent atrial fibrillation. Hypotension noted this morning however current blood pressure is 119/70 at bedside. Will resume patient's diltiazem 240 extended release daily. Will also start Toprol-XL 50 BID which can be uptitrated if BP permits, will place holding parameters. Would avoid digoxin given SABRINA. Recommend resuming patient's anticoagulation with Eliquis 2.5 twice daily when possible. -Discontinue Entresto, will plan to start patient on Aldactone/Jardiance once BP and kidney function permits for diastolic heart failure -Repeat surface echo pending. -Rest of management per primary team -Continue to monitor closely Cardiology team will continue to follow patient. Feel free to contact us if you have any questions or concerns. Problem List/Past Medical History Ongoing Atrial fibrillation Breast cancer CHF (congestive heart failure) Chronic kidney disease (CKD) COPD (chronic obstructive pulmonary disease) Diabetes HTN (hypertension) Hyperlipidemia Hypothyroidism Hypoxia On home oxygen therapy Pulmonary hypertension Recurrent left pleural effusion Historical No qualifying data Procedure/Surgical History Thoracentesis: 06/17/23 Cardioversion: 03/20/19 Cardiac catheterization, left heart: 05/31/14 Colonoscopy Cataract extraction Excision biopsy of skin lesion Hysterectomy Lumpectomy of right breast Medications Inpatient albuterol 2.5 mg/3 mL (0.083%) inhalation solution, 2.5 mg= 3 mL, Inhalation, q4hRT, PRN clotrimazole 1% topical cream, 1 cristopher, Topical, BID Dextrose 50% IV Push, 12.5 gram(s)= 25 mL, IV Push, AsDirected, PRN dilTIAZem 240 mg/24 hours oral capsule, extended release, 240 mg= 1 cap(s), Oral, qDay docusate, 100 mg= 1 cap(s), Oral, TID Dulcolax Laxative, 10 mg= 1 supp, Rectal, Once Dulcolax Laxative, 10 mg= 1 supp, Rectal, Once, PRN DuoNeb, 3 mL, Inhalation, q2hRT, PRN ferrous sulfate, 325 mg= 1 tab(s), Oral, qDay Fleet Enema, 133 mL, Rectal, Once heparin 5000 units/mL injection, 5000 unit(s)= 1 mL, Subcutaneous, q8h HumaLOG 100 units/mL subcutaneous solution, Give 0-10 units/dose, Subcutaneous, TIDAC Lantus, 20 unit(s)= 0.2 mL, Subcutaneous (INT), qHS Lasix, 40 mg= 4 mL, IV Push, BID levothyroxine, 200 mcg= 1 tab(s), Oral, qDay levothyroxine, 50 mcg= 1 tab(s), Oral, qDayAC lidocaine (lidocaine Patch REMOVAL), 1 EA, Miscellaneous, q24h lidocaine 4% topical patch, 1 patch(es), Transdermal, q24h methocarbamol, 500 mg= 1 tab(s), Oral, q8h Miralax Powder Packet, 17 gram(s)= 15 mL, Oral, BID, PRN mupirocin 2% topical ointment, 1 cristopher, Nostril, each, q12h potassium chloride extended release, 20 mEq= 1 tab(s), Oral, Daily Protonix, 40 mg= 1 tab(s), Oral, qDayAC rosuvastatin, 20 mg= 1 tab(s), Oral, qHS traMADol, 25 mg= 0.5 tab(s), Oral, q12h, PRN Tylenol, 650 mg= 2 tab(s), Oral, q4h, PRN Zofran, 4 mg= 2 mL, IV Push, q4h, PRN Home acetaminophen 500 mg oral capsule, 1000 mg= 2 cap(s), Oral, q6hr, PRN albuterol MDI (90 mcg/inh) CFC free inhalation aerosol, Inhalation, q4h, PRN dilTIAZem 240 mg/24 hours oral capsule, extended release, 240 mg= 1 cap(s), Oral, qHS Eliquis 2.5 mg oral tablet, 2.5 mg= 1 tab(s), Oral, qHS Entresto 24 mg-26 mg oral tablet, 1 tab(s), Oral, BID ferrous sulfate 325 mg (65 mg elemental iron) oral delayed release tablet, 325 mg= 1 tab(s), Oral, qDay Gemtesa 75 mg oral tablet, 75 mg= 1 tab(s), Oral, qHS glimepiride 1 mg oral tablet, 1 mg= 1 tab(s), Oral, qDay Lasix 40 mg oral tablet, 40 mg= 1 tab(s), Oral, qAM levothyroxine 200 mcg (0.2 mg) oral tablet, 200 mcg= 1 tab(s), Oral, qDay levothyroxine 50 mcg (0.05 mg) oral tablet, 50 mcg= 1 tab(s), Oral, qDayAC Lopressor 100 mg oral tablet, 100 mg= 1 tab(s), Oral, BID Myrbetriq 50 mg oral tablet, extended release, 50 mg, Oral, BID potassium chloride 20 mEq oral tablet, extended release, 20 mEq= 1 tab(s), Oral, Daily rosuvastatin 20 mg oral tablet, 20 mg= 1 tab(s), Oral, qHS Tresiba FlexTouch 200 units/mL 3 mL subcutaneous solution, 40 unit(s), Subcutaneous, qDay Allergies sulfa (Rash) Social History Alcohol Use: Rare. Frequency: 1-2 times per year., 07/03/2023 Home/Environment Living situation: Home/Independent. Safe place to go: Yes. Domestic Concerns: None. Lives In: Single level home. Current Home Treatments Oxygen therapy., 07/10/2023 Nutrition/Health Type of diet: Low sodium. Caffeine intake amount: none. Appetite Good. Eating Difficulties None., 07/10/2023 Substance Abuse Use: Never., 04/19/2023 Tobacco Nicotine Use: Former smoker, quit more than 30 days ago. Type: Cigarettes. Started at age: 15 Years. Stopped at age: 53 Years., 07/03/2023 Family History Bladder cancer: Mother. Breast cancer: Daughter. Cancer of colon: Mother. Coronary artery disease: Sister. Skin cancer: Mother. Thyroid cancer: Daughter. Immunizations pneumococcal 23-valent vaccine(Pneumovax: 0 unknown unit (02/12/05) SARS-CoV-2 (COVID-19) mRNA-1273 vaccine: 0.3 unknown unit (07/12/21) SARS-CoV-2 (COVID-19) mRNA-1273 vaccine: 0 unknown unit (01/11/21) SARS-CoV-2 mRNA (tozinameran) vaccine: 0.5 unknown unit (05/02/20) SARS-CoV-2 mRNA (tozinameran) vaccine: 0.5 unknown unit (04/09/20) zoster vaccine, inactivated: 0 unknown unit (12/07/18) Digitally Signed by HOWARD BRADLEY MD on 07/12/2023 03:38 PM [id number] Cardiology Consult note Date of Service 07/12/23 Reason for Consultation AFib Referring Physician Dr. Gallardo History of Present Illness Patient is a 83-year-old female with a past medical history of HFpEF, severe concentric LVH, persistent atrial fibrillation with failed DCCV in 2019 and intolerant to amiodarone being treated with rate control strategy, hypertension, hyperlipidemia, hypothyroidism, history of CKD, recurrent left-sided pleural effusions on as needed home oxygen who is admitted under CTS and underwent left minithoracotomy, pleural lysis of adhesions, and a combination of mechanical and chemical pleurodesis on 07/10/2023 for recurrent left-sided pleural effusion. Patient follows at [facility] and was last seen on 06/08. Most recent surface echo done in May showing EF of 60%, severe concentric LVH, mild TR. Stress test done back in March 2022 with negative for inducible ischemia. She currently has left-sided chest tubes. She remains in persistent atrial fibrillation and Eliquis is on hold due to recent surgery. Patient became hypotensive this morning with systolic blood pressure in 70s however currently BP is 119/70. Repeat surface echo is pending. SABRINA on CKD noted Lasix has been switched to 40 IV twice daily, chest x-ray does show pulmonary congestion. Cardiology has been consulted for atrial fibrillation management. Review of Systems 12 point ROS reviewed and negative unless stated above. Physical Exam Vitals and Measurements T: 37.0 C (Oral) TMIN: 36.7 C (Oral) TMAX: 37.3 C (Oral) HR: 96(Monitored) RR: 20 BP: 72/62 SpO2: 94% WT: 122.2 kg Weight Current Weight Dosing Weight: 122.4 kg (07/10/23) Current Weight: 122.2 kg (07/12/23) GENERAL: Pt is comfortable in bed. High flow nasal cannula PSYCH: Alert and oriented HEENT: Sclera clear, trachea midline NEURO: No focal neurologic deficits ENDO: Thyroid is non-palpable NECK: Mild JVD CVS: S1 & S2 audible, irregular irregular rhythm, No Murmurs LUNG: Decreased breath sounds bilaterally GI: + BS, Abdomen is Soft EXTREMITIES: Trace lower extremity edema SKIN: Warm & Dry Lab Results 07/11 02:43 WBC: 9.8 Hgb: 11.6 L Hct: 36.2 Platelet: 217 Neutrophil %: 78.7 H Glucose Level: 154 H Sodium Level: 137 Potassium Level: 4.4 BUN: 40.0 H Creatinine Lvl (s): 2.52 H 07/10 02:23 WBC: 9.2 Hgb: 11.9 L Hct: 36.4 Platelet: 234 Neutrophil %: 78.3 H Glucose Level: 160 H Sodium Level: 139 Potassium Level: 4.5 BUN: 29.0 H Creatinine Lvl (s): 1.74 H Assessment/Plan -Longstanding persistent atrial fibrillation on Eliquis, intolerant to amiodarone, currently on rate control strategy, failed DCCV in 2019 -SABRINA on CKD (unknown baseline) -Transient hypotension -HFpEF EF 60% -Recurrent left pleural effusion s/p left minithoracotomy, pleural lysis of adhesions, a combination of mechanical and chemical pleurodesis -Severe concentric LVH -Hypertension -Hyperlipidemia Plan -Patient appears to be in rate controlled persistent atrial fibrillation. Hypotension noted this morning however current blood pressure is 119/70 at bedside. Will resume patient's diltiazem 240 extended release daily. Will also start Toprol-XL 50 BID which can be uptitrated if BP permits, will place holding parameters. Would avoid digoxin given SABRINA. Recommend resuming patient's anticoagulation with Eliquis 2.5 twice daily when possible. -Discontinue Entresto, will plan to start patient on Aldactone/Jardiance once BP and kidney function permits for diastolic heart failure -Repeat surface echo pending. -Rest of management per primary team -Continue to monitor closely Cardiology team will continue to follow patient. Feel free to contact us if you have any questions or concerns. Problem List/Past Medical History Ongoing Atrial fibrillation Breast cancer CHF (congestive heart failure) Chronic kidney disease (CKD) COPD (chronic obstructive pulmonary disease) Diabetes HTN (hypertension) Hyperlipidemia Hypothyroidism Hypoxia On home oxygen therapy Pulmonary hypertension Recurrent left pleural effusion Historical No qualifying data Procedure/Surgical History Thoracentesis: 06/17/23 Cardioversion: 03/20/19 Cardiac catheterization, left heart: 05/31/14 Colonoscopy Cataract extraction Excision biopsy of skin lesion Hysterectomy Lumpectomy of right breast Medications Inpatient albuterol 2.5 mg/3 mL (0.083%) inhalation solution, 2.5 mg= 3 mL, Inhalation, q4hRT, PRN clotrimazole 1% topical cream, 1 cristopher, Topical, BID Dextrose 50% IV Push, 12.5 gram(s)= 25 mL, IV Push, AsDirected, PRN dilTIAZem 240 mg/24 hours oral capsule, extended release, 240 mg= 1 cap(s), Oral, qDay docusate, 100 mg= 1 cap(s), Oral, TID Dulcolax Laxative, 10 mg= 1 supp, Rectal, Once Dulcolax Laxative, 10 mg= 1 supp, Rectal, Once, PRN DuoNeb, 3 mL, Inhalation, q2hRT, PRN ferrous sulfate, 325 mg= 1 tab(s), Oral, qDay Fleet Enema, 133 mL, Rectal, Once heparin 5000 units/mL injection, 5000 unit(s)= 1 mL, Subcutaneous, q8h HumaLOG 100 units/mL subcutaneous solution, Give 0-10 units/dose, Subcutaneous, TIDAC Lantus, 20 unit(s)= 0.2 mL, Subcutaneous (INT), qHS Lasix, 40 mg= 4 mL, IV Push, BID levothyroxine, 200 mcg= 1 tab(s), Oral, qDay levothyroxine, 50 mcg= 1 tab(s), Oral, qDayAC lidocaine (lidocaine Patch REMOVAL), 1 EA, Miscellaneous, q24h lidocaine 4% topical patch, 1 patch(es), Transdermal, q24h methocarbamol, 500 mg= 1 tab(s), Oral, q8h Miralax Powder Packet, 17 gram(s)= 15 mL, Oral, BID, PRN mupirocin 2% topical ointment, 1 cristopher, Nostril, each, q12h potassium chloride extended release, 20 mEq= 1 tab(s), Oral, Daily Protonix, 40 mg= 1 tab(s), Oral, qDayAC rosuvastatin, 20 mg= 1 tab(s), Oral, qHS traMADol, 25 mg= 0.5 tab(s), Oral, q12h, PRN Tylenol, 650 mg= 2 tab(s), Oral, q4h, PRN Zofran, 4 mg= 2 mL, IV Push, q4h, PRN Home acetaminophen 500 mg oral capsule, 1000 mg= 2 cap(s), Oral, q6hr, PRN albuterol MDI (90 mcg/inh) CFC free inhalation aerosol, Inhalation, q4h, PRN dilTIAZem 240 mg/24 hours oral capsule, extended release, 240 mg= 1 cap(s), Oral, qHS Eliquis 2.5 mg oral tablet, 2.5 mg= 1 tab(s), Oral, qHS Entresto 24 mg-26 mg oral tablet, 1 tab(s), Oral, BID ferrous sulfate 325 mg (65 mg elemental iron) oral delayed release tablet, 325 mg= 1 tab(s), Oral, qDay Gemtesa 75 mg oral tablet, 75 mg= 1 tab(s), Oral, qHS glimepiride 1 mg oral tablet, 1 mg= 1 tab(s), Oral, qDay Lasix 40 mg oral tablet, 40 mg= 1 tab(s), Oral, qAM levothyroxine 200 mcg (0.2 mg) oral tablet, 200 mcg= 1 tab(s), Oral, qDay levothyroxine 50 mcg (0.05 mg) oral tablet, 50 mcg= 1 tab(s), Oral, qDayAC Lopressor 100 mg oral tablet, 100 mg= 1 tab(s), Oral, BID Myrbetriq 50 mg oral tablet, extended release, 50 mg, Oral, BID potassium chloride 20 mEq oral tablet, extended release, 20 mEq= 1 tab(s), Oral, Daily rosuvastatin 20 mg oral tablet, 20 mg= 1 tab(s), Oral, qHS Tresiba FlexTouch 200 units/mL 3 mL subcutaneous solution, 40 unit(s), Subcutaneous, qDay Allergies sulfa (Rash) Social History Alcohol Use: Rare. Frequency: 1-2 times per year., 07/03/2023 Home/Environment Living situation: Home/Independent. Safe place to go: Yes. Domestic Concerns: None. Lives In: Single level home. Current Home Treatments Oxygen therapy., 07/10/2023 Nutrition/Health Type of diet: Low sodium. Caffeine intake amount: none. Appetite Good. Eating Difficulties None., 07/10/2023 Substance Abuse Use: Never., 04/19/2023 Tobacco Nicotine Use: Former smoker, quit more than 30 days ago. Type: Cigarettes. Started at age: 15 Years. Stopped at age: 53 Years., 07/03/2023 Family History Bladder cancer: Mother. Breast cancer: Daughter. Cancer of colon: Mother. Coronary artery disease: Sister. Skin cancer: Mother. Thyroid cancer: Daughter. Immunizations pneumococcal 23-valent vaccine(Pneumovax: 0 unknown unit (02/12/05) SARS-CoV-2 (COVID-19) mRNA-1273 vaccine: 0.3 unknown unit (07/12/21) SARS-CoV-2 (COVID-19) mRNA-1273 vaccine: 0 unknown unit (01/11/21) SARS-CoV-2 mRNA (tozinameran) vaccine: 0.5 unknown unit (05/02/20) SARS-CoV-2 mRNA (tozinameran) vaccine: 0.5 unknown unit (04/09/20) zoster vaccine, inactivated: 0 unknown unit (12/07/18) Digitally Signed by HOWARD BRADLEY MD on 07/12/2023 03:38 PM [id number] Critical care medicine Consult note Date of Service 07/12/2023 Reason for Consultation Hypoxemia Referring Physician Dr. Liat Gardiner History of Present Illness This is an 79-year-old female with a past medical history of hypertension, atrial fibrillation, HFpEF, COPD, multifactorial pulmonary hypertension, former smoker on nocturnal oxygen with unclear rate, with hyperlipidemia, hypothyroidism, diabetes, recurrent left pleural effusions status post multiple thoracenteses who presented [facility] 07[facility] for an elective LVAD/minithoracotomy/decortication and underwent mechanical and chemical pleurodesis on 07/10/[address] Gardiner. Postoperatively, the patient was hypoxemic requiring return to the CV SICU and placed on high flow nasalcannula. Chest tubes in place. On exam today, the patient is sitting in bed, somewhat drowsy but alert, interactive and able to follow commands. She is on high flow nasal cannula 60 L and 85%. ABG in the morning showed no significant hypercapnia. Chest tube output was about 330 cc in the past 24 hours Physical Exam Vitals and Measurements T: 37.0 C (Oral) TMIN: 36.7 C (Oral) TMAX: 37.3 C (Oral) HR: 97(Monitored) RR: 20 BP: 99/52 SpO2: 96% WT: 122.2 kg Weight Current Weight Dosing Weight: 122.4 kg (07/10/23) Current Weight: 122.2 kg (07/12/23) - GENERAL: Alert and interactive, does doze off during interview. - HEENT: EOMI. moist mucous membranes. Thick neck, unable to assess JVD - LUNGS: Diminished bilaterally. Coarse breath sounds heard in the right base. Chest tube in place with serous output on the left side. - CARDIOVASCULAR: Regular, tachycardic - ABDOMEN: Obese, nontender - EXTREMITIES: Bilateral pitting edema in lower extremities. - SKIN: No rashes or lesions. Warm. - NEUROLOGIC: Alert, interactive, following commands, moving all extremities. Lab Results 07/11 02:43 WBC: 9.8 Hgb: 11.6 L Hct: 36.2 Platelet: 217 Neutrophil %: 78.7 H Glucose Level: 154 H Sodium Level: 137 Potassium Level: 4.4 BUN: 40.0 H Creatinine Lvl (s): 2.52 H 07/10 02:23 WBC: 9.2 Hgb: 11.9 L Hct: 36.4 Platelet: 234 Neutrophil %: 78.3 H Glucose Level: 160 H Sodium Level: 139 Potassium Level: 4.5 BUN: 29.0 H Creatinine Lvl (s): 1.74 H Assessment/Plan Atrial fibrillation Breast cancer CHF (congestive heart failure) Chronic kidney disease (CKD) COPD (chronic obstructive pulmonary disease) Diabetes HTN (hypertension) Hyperlipidemia Hypothyroidism Hypoxia On home oxygen therapy Recurrent left pleural effusion s/p left minithoracotomy, pleural lysis of adhesions, a combinationof mechanical and chemical pleurodesis 07/10/2023 Assessment: Status post left mini thoracotomy, pleural lysis of adhesions with mechanical and chemical pleurodesis on 07/06/2023 Acute kidney injury on CKD Hypoxemia, multifactorial suspect a component of atelectasis and volume overload History of COPD without evidence of acute bronchospasm Comorbidities include: Atrial fibrillation, CHF, CKD, history of COPD, hypertension, hyperlipidemia, hypothyroidism, chronic pain, chronic hypoxemia with unclear baseline oxygen need Plan: Agree with targeting a net negative fluid balance. Patient has previously been on budesonide filledmetolazone. Home dose of Lasix appears to be 40 mg p.o. twice a day. High flow nasal cannula in place 60 L 85% FiO2. Weaning as tolerated. Empiric nocturnal noninvasive ventilation 12/5 cmH2O. Mobilize as tolerated. Patient up to chair today. Incentive spirometry ordered and at the bedside Will suspend gabapentin as this may be contributing to sleepiness and atelectasis. Possible in the setting of SABRINA Chest tube remains in place ABG in the morning Thank you for much for this consultation allow me to participate in this patient's care. Problem List/Past Medical History Ongoing Atrial fibrillation Breast cancer CHF (congestive heart failure) Chronic kidney disease (CKD) COPD (chronic obstructive pulmonary disease) Diabetes HTN (hypertension) Hyperlipidemia Hypothyroidism Hypoxia On home oxygen therapy Pulmonary hypertension Recurrent left pleural effusion Historical No qualifying data Procedure/Surgical History Thoracentesis: 06/17/23 Cardioversion: 03/20/19 Cardiac catheterization, left heart: 05/31/14 Colonoscopy Cataract extraction Excision biopsy of skin lesion Hysterectomy Lumpectomy of right breast Medications Inpatient albuterol 2.5 mg/3 mL (0.083%) inhalation solution, 2.5 mg= 3 mL, Inhalation, q4hRT, PRN clotrimazole 1% topical cream, 1 cristopher, Topical, BID Dextrose 50% IV Push, 12.5 gram(s)= 25 mL, IV Push, AsDirected, PRN docusate, 100 mg= 1 cap(s), Oral, TID Dulcolax Laxative, 10 mg= 1 supp, Rectal, Once Dulcolax Laxative, 10 mg= 1 supp, Rectal, Once, PRN DuoNeb, 3 mL, Inhalation, q2hRT, PRN ferrous sulfate, 325 mg= 1 tab(s), Oral, qDay Fleet Enema, 133 mL, Rectal, Once heparin 5000 units/mL injection, 5000 unit(s)= 1 mL, Subcutaneous, q8h HumaLOG 100 units/mL subcutaneous solution, Give 0-10 units/dose, Subcutaneous, TIDAC Lantus, 20 unit(s)= 0.2 mL, Subcutaneous (INT), qHS Lasix, 40 mg= 4 mL, IV Push, BID levothyroxine, 200 mcg= 1 tab(s), Oral, qDay levothyroxine, 50 mcg= 1 tab(s), Oral, qDayAC lidocaine (lidocaine Patch REMOVAL), 1 EA, Miscellaneous, q24h lidocaine 4% topical patch, 1 patch(es), Transdermal, q24h methocarbamol, 500 mg= 1 tab(s), Oral, q8h Miralax Powder Packet, 17 gram(s)= 15 mL, Oral, BID, PRN mupirocin 2% topical ointment, 1 cristopher, Nostril, each, q12h Neurontin, 100 mg= 1 cap(s), Oral, TID potassium chloride extended release, 20 mEq= 1 tab(s), Oral, Daily Protonix, 40 mg= 1 tab(s), Oral, qDayAC rosuvastatin, 20 mg= 1 tab(s), Oral, qHS traMADol, 25 mg= 0.5 tab(s), Oral, q12h, PRN Tylenol, 650 mg= 2 tab(s), Oral, q4h, PRN Zofran, 4 mg= 2 mL, IV Push, q4h, PRN Home acetaminophen 500 mg oral capsule, 1000 mg= 2 cap(s), Oral, q6hr, PRN albuterol MDI (90 mcg/inh) CFC free inhalation aerosol, Inhalation, q4h, PRN dilTIAZem 240 mg/24 hours oral capsule, extended release, 240 mg= 1 cap(s), Oral, qHS Eliquis 2.5 mg oral tablet, 2.5 mg= 1 tab(s), Oral, qHS Entresto 24 mg-26 mg oral tablet, 1 tab(s), Oral, BID ferrous sulfate 325 mg (65 mg elemental iron) oral delayed release tablet, 325 mg= 1 tab(s), Oral, qDay Gemtesa 75 mg oral tablet, 75 mg= 1 tab(s), Oral, qHS glimepiride 1 mg oral tablet, 1 mg= 1 tab(s), Oral, qDay Lasix 40 mg oral tablet, 40 mg= 1 tab(s), Oral, qAM levothyroxine 200 mcg (0.2 mg) oral tablet, 200 mcg= 1 tab(s), Oral, qDay levothyroxine 50 mcg (0.05 mg) oral tablet, 50 mcg= 1 tab(s), Oral, qDayAC Lopressor 100 mg oral tablet, 100 mg= 1 tab(s), Oral, BID Myrbetriq 50 mg oral tablet, extended release, 50 mg, Oral, BID potassium chloride 20 mEq oral tablet, extended release, 20 mEq= 1 tab(s), Oral, Daily rosuvastatin 20 mg oral tablet, 20 mg= 1 tab(s), Oral, qHS Tresiba FlexTouch 200 units/mL 3 mL subcutaneous solution, 40 unit(s), Subcutaneous, qDay Allergies sulfa (Rash) Social History Alcohol Use: Rare. Frequency: 1-2 times per year., 07/03/2023 Home/Environment Living situation: Home/Independent. Safe place to go: Yes. Domestic Concerns: None. Lives In: Single level home. Current Home Treatments Oxygen therapy., 07/10/2023 Nutrition/Health Type of diet: Low sodium. Caffeine intake amount: none. Appetite Good. Eating Difficulties None., 07/10/2023 Substance Abuse Use: Never., 04/19/2023 Tobacco Nicotine Use: Former smoker, quit more than 30 days ago. Type: Cigarettes. Started at age: 15 Years. Stopped at age: 53 Years., 07/03/2023 Family History Bladder cancer: Mother. Breast cancer: Daughter. Cancer of colon: Mother. Coronary artery disease: Sister. Skin cancer: Mother. Thyroid cancer: Daughter. Immunizations pneumococcal 23-valent vaccine(Pneumovax: 0 unknown unit (02/12/05) SARS-CoV-2 (COVID-19) mRNA-1273 vaccine: 0.3 unknown unit (07/12/21) SARS-CoV-2 (COVID-19) mRNA-1273 vaccine: 0 unknown unit (01/11/21) SARS-CoV-2 mRNA (tozinameran) vaccine: 0.5 unknown unit (05/02/20) SARS-CoV-2 mRNA (tozinameran) vaccine: 0.5 unknown unit (04/09/20) zoster vaccine, inactivated: 0 unknown unit (12/07/18) Digitally Signed by NIGEL SALCEDO MD on 07/12/2023 10:37 AM Digitally Signed by NIGEL SALCEDO MD on 07/12/2023 11:05 AM [id number] Note ORIGINAL EXAMINATION: ONE XRAY VIEW OF THE CHEST07/12/2023 9:58 am COMPARISON: 07/12/2023 HISTORY: ORDERING SYSTEM PROVIDED HISTORY: Reason for Exam: chest tube removal FINDINGS: Cardiomegaly. Vascular structures appear within normal limits. Bibasilar atelectasis or other airspace disease. A left pneumothorax measures 1.2 cm, previously 1.4 cm. Left chest tube has been removed. Small pleural effusions not excluded. No aggressive osseous lesions identified.Degenerative changes noted of the spine. Surgical clips project in the right axilla. IMPRESSION: 1. Interval removal of the left chest tube. There is a persistent small left pneumothorax. 2. Bibasilar atelectasis or other airspace disease. Small pleural effusions not excluded Interpreted by: Basim Holland MD Preliminary Report By: Basim Holland MD Electronically signed By Basim Holland MD Dictated Date: 07/12/2023 10:09:31 AM Prelim Date: 07/12/2023 10:10:49 AM Sign Date: 07/12/2023 10:10:49 AM Ordering Provider: LIAT GARDINEROhio[facility] [id number] Nurse Progress note On 07/11 at 3:45 am I called a rapid response due to increased oxygenation needs. [facility] the previous RN had the patient on 15L NC and an ABG and chest xray were done. The ABG showed that the patient's PO2 was 59.9. The patient's respirations were 26 and the patient was drowsy andnot oriented to situation or time. Prior to calling a rapid response, the previous RN called Dr. Gardiner and he stated to keep the patient on 15L NC unless oxygen continued to drop. After assessing the patient, I determined that it would be best for more people to lay eyes on the patient and get intervention for her increased work of breathing and increased oxygen demand so with the agreed decision between my preceptor, charge nurse and I, we called a rapid response. Please see rapid note. Digitally Signed by Asiya Gomes RN on 07/12/2023 05:05 AM [facility] [id number] Note ORIGINAL EXAMINATION: ONE XRAY VIEW OF THE CHEST 07/12/2023 2:00 am COMPARISON: Chest x-ray 07/11/2023 HISTORY: ORDERING SYSTEM PROVIDED HISTORY: Reason for Exam: Abnormal breath sounds FINDINGS: Stable left chest tube. Small residual left apical pneumothorax. The patient is rotated. The cardiomediastinal silhouette is enlarged but stable. Suspect small bilateral pleural effusions with adjacent atelectasis/consolidation. Stable osseous structures. IMPRESSION: Small residual left apical pneumothorax. Small bilateral pleural effusions with adjacent atelectasis/consolidation. Preliminary Report was Dictated by a Resident Interpreted by: Paulo Breen MD Preliminary Report By: Geena Johnson Electronically signed By Paulo Breen MD Dictated Date: 07/12/2023 2:17:02 AM Prelim Date: 07/12/2023 2:18:37 AM Sign Date: 07/12/2023 3:21:09 AM [facility]ing [facility] Note ORIGINAL EXAMINATION: ONE XRAY VIEW OF THE CHEST07/11/2023 4:49 am COMPARISON: 07/10/2023 HISTORY: ORDERING SYSTEM PROVIDED HISTORY: Reason for Exam: Abnormal Breath Sounds FINDINGS: The 2 left chest tubes are in stable position. There is a persistent small left apical pneumothorax. There is stable cardiomegaly. A small right pleural effusion is present. None there is bibasilar atelectasis. IMPRESSION: Stable left chest tubes with a small residual left pneumothorax. Small right pleural effusion and bibasilar atelectasis. Interpreted by: Pasquale Echeverria Preliminary Report By: Pasquale Echeverria Electronically signed By Pasquale Echeverria Dictated Date: 07/11/2023 1:30:03 PM Prelim Date: 07/11/2023 1:32:10 PM Sign Date: 07/11/2023 1:32:10 PM Ordering Provider: [facility]04-24-2024 Note Date of Service 07/10/2023 Reason for Consultation Diabetic management. Referring Physician Cardiothoracic surgery. History of Present Illness Patient is an 83-year-old female with past medical history significant for recurrent left pleural effusion, insulin-dependent diabetes mellitus, atrial fibrillation, heart failure with preserved ejection fraction, hypertension, hyperlipidemia and hypothyroidism. Patient was [facility]23 to undergo left exploratory video-assisted thoracoscopic surgery with left minithoracotomy, pleural lysis of adhesions and a combination of mechanical and chemical pleurodesis. Hospitalist medicine service was consulted postoperatively for diabetic management. Patient normally takes glimepiride 1 mg daily and Tresiba 40 units daily. Prior to surgical intervention, patient was advised to take 20 units yesterday evening. Patient has since been already clear liquid diet to advanceas tolerated. Review of Systems Review of systems unobtainable as patient is sleepy and following surgical intervention. Physical Exam Vitals and Measurements T: 36.4 C (Oral) TMIN: 36.4 C (Oral) TMAX: 36.5 C (Temporal Artery) HR: 99(Monitored) RR: 16 BP: 124/58 BP: 140/76(Line) SpO2: 99% HT: 172.7 cm WT: 122.4 kg BMI: 41.04 Weight Dosing Weight: 122.4 kg (07/10/23) GENERAL: No acute distress. MOUTH: Moist membranes. NECK: Supple. CARDIOVASCULAR: S1 S2 heard, regular rate and rhythm, no murmurs. No JVD, no edema. RESPIRATORY: Clear to auscultation anteriorly. Chest tubes in place. ABDOMEN: Soft, nontender, nondistended, no rebound or guarding, bowel sounds present in all 4 quadrants. NEUROLOGIC: Sleeping comfortably. Lab Results 07/09 12:11 Hgb: 13.8 Hct: 41.0 Glucose Level: 180 H 07/09 06:27 Platelet: 255 Protime: 10.3 PT International Ratio: 0.9 Imaging Results and Diagnostics XR Chest 1 View Result Date: July 10, 2023 Verified By: TIMA SELF, FARRAH Prado CLINICAL STATEMENT: IMPRESSION: 2 large bore left-sided chest tube, there is a small left pneumothorax and there may besome small residual left pleural effusion. EKG EKG reviewed, atrial fibrillation. Assessment/Plan 1. Chronic insulin-dependent diabetes melitis. Blood sugars so far today have been 191 and 180 showing fairly good control with no diabetic medications administered. Will resume insulin with Lantus 20 units this evening as patient still has not had significant caloric intake and as Tresiba has beenadjusted to Lantus which is on the hospital formulary. Will cover with sliding scale insulin coverage. As diet advances, anticipate transition back to her home diabetic regimen including glimepiride. 2. Chronic recurrent pleural effusion. Status post 07/10/2023 left exploratory video-assisted thoracoscopic surgery with left minithoracotomy, pleural lysis of adhesions and a combination of mechanical and chemical pleurodesis. Postoperative management as per primary service, cardiothoracic surgery. 3. Chronic atrial fibrillation, heart failure with preserved ejection fraction, hypertension, hyperlipidemia and hypothyroidism. Patient's other chronic medical conditions appear stable. No indication for further diagnostic or therapeutic intervention for these medical conditions at this time. Problem List/Past Medical History Ongoing Atrial fibrillation Breast cancer CHF (congestive heart failure) Chronic kidney disease (CKD) COPD (chronic obstructive pulmonary disease) Diabetes HTN (hypertension) Hyperlipidemia Hypothyroidism On home oxygen therapy Pulmonary hypertension Recurrent left pleural effusion Historical No qualifying data Procedure/Surgical History Thoracentesis: 06/17/23 Cardioversion: 03/20/19 Cardiac catheterization, left heart: 05/31/14 Colonoscopy Cataract extraction Excision biopsy of skin lesion Hysterectomy Lumpectomy of right breast Medications Inpatient albuterol 2.5 mg/3 mL (0.083%) inhalation solution, 2.5 mg= 3 mL, Inhalation, q6hRT ceFAZolin, 2 gram(s)= 20 mL, IV Push (INT), q8hr Dextrose 50% IV Push, 12.5 gram(s)= 25 mL, IV Push, AsDirected, PRN Dilaudid PROCESS SAFETY MANAGER (0.2mg/1 mL) 10 mg, 10 mg= 50 mL, Intravenous HumaLOG 100 units/mL subcutaneous solution, Give 0-10 units/dose, Subcutaneous, TIDAC Lantus, 20 unit(s)= 0.2 mL, Subcutaneous (INT), qHS lidocaine (lidocaine Patch REMOVAL), 1 EA, Miscellaneous, q24h lidocaine 4% topical patch, 1 patch(es), Transdermal, q24h methocarbamol, 500 mg= 1 tab(s), Oral, q8h mupirocin 2% topical ointment, 1 cristopher, Nostril, each, q12h Narcan, 0.2 mg= 0.5 mL, IV Push, AsDirected, PRN Neurontin, 100 mg= 1 cap(s), Oral, TID nitroprusside for IV 50 mg [0.2 mcg/kg/min] + NS PMX titrate 100 mL Ofirmev IVPB, 1000 mg= 100 mL, IV Piggyback, q6hr phenylephrine for IV 50 mg [50 mcg/min] + Dextrose 5%/ Water titrate 250 mL Protonix, 40 mg, IV Push, qDayAC Toradol, 15 mg= 1 mL, IV Push, q6h Zofran, 4 mg= 2 mL, IV Push, q4h, PRN Home acetaminophen 500 mg oral capsule, 1000 mg= 2 cap(s), Oral, q6hr, PRN albuterol MDI (90 mcg/inh) CFC free inhalation aerosol, Inhalation, q4h, PRN dilTIAZem 240 mg/24 hours oral capsule, extended release, 240 mg= 1 cap(s), Oral, qHS Eliquis 2.5 mg oral tablet, 2.5 mg= 1 tab(s), Oral, qHS Entresto 24 mg-26 mg oral tablet, 1 tab(s), Oral, BID ferrous sulfate 325 mg (65 mg elemental iron) oral delayed release tablet, 325 mg= 1 tab(s), Oral, qDay Gemtesa 75 mg oral tablet, 75 mg= 1 tab(s), Oral, qHS glimepiride 1 mg oral tablet, 1 mg= 1 tab(s), Oral, qDay Lasix 40 mg oral tablet, 40 mg= 1 tab(s), Oral, qAM levothyroxine 200 mcg (0.2 mg) oral tablet, 200 mcg= 1 tab(s), Oral, qDay levothyroxine 50 mcg (0.05 mg) oral tablet, 50 mcg= 1 tab(s), Oral, qDayAC Lopressor 100 mg oral tablet, 100 mg= 1 tab(s), Oral, BID Myrbetriq 50 mg oral tablet, extended release, 50 mg, Oral, BID potassium chloride 20 mEq oral tablet, extended release, 20 mEq= 1 tab(s), Oral, Daily rosuvastatin 20 mg oral tablet, 20 mg= 1 tab(s), Oral, qHS Tresiba FlexTouch 200 units/mL 3 mL subcutaneous solution, 40 unit(s), Subcutaneous, qDay Allergies sulfa (Rash) Social History Alcohol Use: Rare. Frequency: 1-2 times per year., 07/03/2023 Home/Environment Living situation: Home/Independent. Safe place to go: Yes. Domestic Concerns: None. Lives In: Single level home. Current Home Treatments Oxygen therapy., 07/10/2023 Nutrition/Health Type of diet: Low sodium. Caffeine intake amount: none. Appetite Good. Eating Difficulties None., 07/10/2023 Substance Abuse Use: Never., 04/19/2023 Tobacco Nicotine Use: Former smoker, quit more than 30 days ago. Type: Cigarettes. Started at age: 15 Years. Stopped at age: 53 Years., 07/03/2023 Family History Bladder cancer: Mother. Breast cancer: Daughter. Cancer of colon: Mother. Coronary artery disease: Sister. Skin cancer: Mother. Thyroid cancer: Daughter. Immunizations pneumococcal 23-valent vaccine(Pneumovax: 0 unknown unit (02/12/05) SARS-CoV-2 (COVID-19) mRNA-1273 vaccine: 0.3 unknown unit (07/12/21) SARS-CoV-2 (COVID-19) mRNA-1273 vaccine: 0 unknown unit (01/11/21) SARS-CoV-2 mRNA (tozinameran) vaccine: 0.5 unknown unit (05/02/20) SARS-CoV-2 mRNA (tozinameran) vaccine: 0.5 unknown unit (04/09/20) zoster vaccine, inactivated: 0 unknown unit (12/07/18) Digitally Signed by GLENROY GIL DO on 07/10/2023 02:57 PM Digitally Signed by GLENROY GIL DO on 07/10/2023 08:26 PM [id number] NoteATRIAL FIBRILLATION RIGHT BUNDLE BRANCH BLOCK INFERIOR INFARCT, AGE INDETERMINATE Electronic Signature: SOUMYA TEE MD 07/11/2023 20:36:58[facility] 04-24-2024 Anesthesiology Consult note Patient: TONJA SÁNCHEZ Age: 83 years Sex: Female : 1940 Associated Diagnoses: None Author: FELICIANO MALONE MD Postoperative Information Post Operative Info: Post op day: Post Anesthesia Care Unit. Patient location: ICU. Assessment Postanesthesia assessment Vitals: Vital signs from flowsheet : Vital Signs 07/10/2023 11:15 EDT Temperature Oral 36.4 DegC Heart Rate Monitored 81 bpm Respiratory Rate 14 br/min Systolic Blood Pressure Non-Invasive 124 mmHg Diastolic Blood Pressure Non-Invasive 58 mmHg LOW Reason For Taking VItal Signs Admission 07/10/2023 11:05 EDT Heart Rate Monitored 83 bpm bpm Respiratory Rate - Anes 21 br/min br/min 07/10/2023 11:00 EDT Heart Rate Monitored 89 bpm bpm Respiratory Rate - Anes 6 br/min br/min 07/10/2023 10:55 EDT Heart Rate Monitored 105 bpm bpm Respiratory Rate - Anes 12 br/min br/min 07/10/2023 10:50 EDT Heart Rate Monitored 89 bpm bpm Respiratory Rate - Anes 12 br/min br/min 07/10/2023 10:45 EDT Heart Rate Monitored 86 bpm bpm Respiratory Rate - Anes 12 br/min br/min 07/10/2023 10:40 EDT Heart Rate Monitored 95 bpm bpm Respiratory Rate - Anes 9 br/min br/min 07/10/2023 10:35 EDT Heart Rate Monitored 93 bpm bpm Respiratory Rate - Anes 12 br/min br/min 07/10/2023 10:30 EDT Heart Rate Monitored 96 bpm bpm Respiratory Rate - Anes 12 br/min br/min 07/10/2023 10:25 EDT Heart Rate Monitored 110 bpm bpm Respiratory Rate - Anes 15 br/min br/min 07/10/2023 10:20 EDT Heart Rate Monitored 86 bpm bpm Respiratory Rate - Anes 16 br/min br/min 07/10/2023 10:15 EDT Heart Rate Monitored 82 bpm bpm Respiratory Rate - Anes 16 br/min br/min 07/10/2023 10:10 EDT Heart Rate Monitored 83 bpm bpm Respiratory Rate - Anes 16 br/min br/min 07/10/2023 10:05 EDT Heart Rate Monitored 92 bpm bpm Respiratory Rate - Anes 16 br/min br/min 07/10/2023 10:00 EDT Heart Rate Monitored 91 bpm bpm Respiratory Rate - Anes 16 br/min br/min 07/10/2023 9:55 EDT Heart Rate Monitored 82 bpm bpm Respiratory Rate - Anes 16 br/min br/min 07/10/2023 9:50 EDT Heart Rate Monitored 89 bpm bpm Respiratory Rate - Anes 16 br/min br/min 07/10/2023 9:45 EDT Heart Rate Monitored 87 bpm bpm Respiratory Rate - Anes 16 br/min br/min 07/10/2023 9:40 EDT Heart Rate Monitored 92 bpm bpm Respiratory Rate - Anes 16 br/min br/min 07/10/2023 9:35 EDT Heart Rate Monitored 83 bpm bpm Respiratory Rate - Anes 16 br/min br/min 07/10/2023 9:30 EDT Heart Rate Monitored 84 bpm bpm Respiratory Rate - Anes 16 br/min br/min 07/10/2023 9:25 EDT Heart Rate Monitored 83 bpm bpm Respiratory Rate - Anes 16 br/min br/min 07/10/2023 9:20 EDT Heart Rate Monitored 84 bpm bpm Respiratory Rate - Anes 16 br/min br/min 07/10/2023 9:15 EDT Heart Rate Monitored 98 bpm bpm Respiratory Rate - Anes 16 br/min br/min 07/10/2023 9:10 EDT Heart Rate Monitored 81 bpm bpm Respiratory Rate - Anes 16 br/min br/min 07/10/2023 9:05 EDT Heart Rate Monitored 107 bpm bpm Respiratory Rate - Anes 16 br/min br/min 07/10/2023 9:00 EDT Heart Rate Monitored 94 bpm bpm Respiratory Rate - Anes 16 br/min br/min 07/10/2023 8:55 EDT Heart Rate Monitored 83 bpm bpm Respiratory Rate - Anes 16 br/min br/min 07/10/2023 8:50 EDT Heart Rate Monitored 93 bpm bpm Respiratory Rate - Anes 16 br/min br/min 07/10/2023 8:45 EDT Heart Rate Monitored 88 bpm bpm Respiratory Rate - Anes 16 br/min br/min 07/10/2023 8:40 EDT Heart Rate Monitored 87 bpm bpm Respiratory Rate - Anes 16 br/min br/min 07/10/2023 8:35 EDT Heart Rate Monitored 94 bpm bpm Respiratory Rate - Anes 12 br/min br/min 07/10/2023 8:30 EDT Respiratory Rate - Anes 14 br/min br/min 07/10/2023 8:25 EDT Heart Rate Monitored 91 bpm bpm Respiratory Rate - Anes 12 br/min br/min 07/10/2023 8:20 EDT Heart Rate Monitored 86 bpm bpm Respiratory Rate - Anes 12 br/min br/min 07/10/2023 8:18 EDT Systolic Blood Pressure Non-Invasive 105 mmHg mmHg Diastolic Blood Pressure Non-Invasive 67 mmHg mmHg 07/10/2023 8:15 EDT Heart Rate Monitored 88 bpm bpm Respiratory Rate - Anes 12 br/min br/min 07/10/2023 8:14 EDT Systolic Blood Pressure Non-Invasive 87 mmHg mmHg Diastolic Blood Pressure Non-Invasive 58 mmHg mmHg 07/10/2023 8:12 EDT Systolic Blood Pressure Non-Invasive 159 mmHg mmHg Diastolic Blood Pressure Non-Invasive 127 mmHg mmHg 07/10/2023 8:10 EDT Heart Rate Monitored 105 bpm bpm Respiratory Rate - Anes 12 br/min br/min 07/10/2023 8:07 EDT Systolic Blood Pressure Non-Invasive 122 mmHg mmHg Diastolic Blood Pressure Non-Invasive 105 mmHg mmHg 07/10/2023 8:05 EDT Heart Rate Monitored 93 bpm bpm Respiratory Rate - Anes 6 br/min br/min 07/10/2023 8:04 EDT Systolic Blood Pressure Non-Invasive 160 mmHg mmHg Diastolic Blood Pressure Non-Invasive 87 mmHg mmHg 07/10/2023 8:01 EDT Systolic Blood Pressure Non-Invasive 144 mmHg mmHg Diastolic Blood Pressure Non-Invasive 104 mmHg mmHg 07/10/2023 7:54 EDT Apical Heart Rate Not Done: Not Appropriate at this Time (Not Done) 07/10/2023 6:09 EDT Temperature Temporal Artery 36.5 DegC Peripheral Pulse Rate 90 bpm Respiratory Rate 16 br/min Systolic Blood Pressure Non-Invasive 140 mmHg Diastolic Blood Pressure Non-Invasive 71 mmHg , Oxygen Therapy : Oxygen Therapy & Oxygenation Information 07/10/2023 11:28 EDT Oxygen Therapy Nasal cannula 0L-6L Oxygen Activity Oxygen On Oxygen Flow Rate 6 07/10/2023 11:15 EDT Oxygen Therapy Simple mask Oxygen Saturation 97 % 07/10/2023 11:05 EDT Oxygen Saturation 100 % % 07/10/2023 11:00 EDT Oxygen Saturation 100 % % 07/10/2023 10:55 EDT Oxygen Saturation 98.3 % % 07/10/2023 10:50 EDT Oxygen Saturation 98.8 % % 07/10/2023 10:45 EDT Oxygen Saturation 98.8 % % 07/10/2023 10:40 EDT Oxygen Saturation 98.8 % % 07/10/2023 10:35 EDT Oxygen Saturation 98.7 % % 07/10/2023 10:30 EDT Oxygen Saturation 98.6 % % 07/10/2023 10:25 EDT Oxygen Saturation 98.7 % % 07/10/2023 10:20 EDT Oxygen Saturation 93.3 % % 07/10/2023 10:15 EDT Oxygen Saturation 94 % % 07/10/2023 10:10 EDT Oxygen Saturation 94.4 % % 07/10/2023 10:05 EDT Oxygen Saturation 94.7 % % 07/10/2023 10:00 EDT Oxygen Saturation 94.3 % % 07/10/2023 9:55 EDT Oxygen Saturation 94.8 % % 07/10/2023 9:50 EDT Oxygen Saturation 95.5 % % 07/10/2023 9:45 EDT Oxygen Saturation 95.8 % % 07/10/2023 9:40 EDT Oxygen Saturation 96.5 % % 07/10/2023 9:35 EDT Oxygen Saturation 98.5 % % 07/10/2023 9:30 EDT Oxygen Saturation 99 % % 07/10/2023 9:25 EDT Oxygen Saturation 99 % % 07/10/2023 9:20 EDT Oxygen Saturation 96.4 % % 07/10/2023 9:15 EDT Oxygen Saturation 97.1 % % 07/10/2023 9:10 EDT Oxygen Saturation 98.4 % % 07/10/2023 9:05 EDT Oxygen Saturation 99 % % 07/10/2023 9:00 EDT Oxygen Saturation 99.1 % % 07/10/2023 8:55 EDT Oxygen Saturation 99.3 % % 07/10/2023 8:50 EDT Oxygen Saturation 99 % % 07/10/2023 8:45 EDT Oxygen Saturation 98.8 % % 07/10/2023 8:40 EDT Oxygen Saturation 98.8 % % 07/10/2023 8:35 EDT Oxygen Saturation 99 % % 07/10/2023 8:30 EDT Oxygen Saturation 99.1 % % 07/10/2023 8:25 EDT Oxygen Saturation 98.9 % % 07/10/2023 8:20 EDT Oxygen Saturation 99.9 % % 07/10/2023 8:15 EDT Oxygen Saturation 99.8 % % 07/10/2023 8:10 EDT Oxygen Saturation 99.6 % % 07/10/2023 8:05 EDT Oxygen Saturation 98.8 % % 07/10/2023 6:09 EDT Oxygen Therapy Room air Oxygen Saturation 97 % . Mental status: at preoperative baseline. Respiratory function: respirations are non-labored, Stable. Respiratory support: none. CV function: Stable. Cardiovascular support: none. Pain: Satisfactory. Nausea status: Satisfactory. Postoperative hydration status: within normal limits. Notes: Patient is sufficiently recovered from anesthesia to participate in the evaluation. No follow-up care needed. No complications post-anesthesia.. Digitally Signed by FELICIANO MALONE MD on 07/10/2023 12:23 PM [id number] Anesthesiology Consult note Patient: TONJA SÁNCHEZ Age: 83 years Sex: Female : 1940 Associated Diagnoses: None Author: FELICIANO MALONE MD Preoperative Information Greater than 8 hours Anesthesia history Patient's history: negative. Family's history: negative. Review of Systems Ear/Nose/Mouth/Throat: Negative except as documented in history of present illness. Respiratory: Negative except as documented in history of present illness, COPD, Asthma, Lung CA, Pleural Effusion, Decortication, Lympadenopathy, . Cardiovascular: Negative except as documented in history of present illness, CAD, SC, HTN, CHF, Cardiomyopathy, Arrhythmia. Gastrointestinal: Negative except as documented in history of present illness. Genitourinary: Negative except as documented in history of present illness. Endocrine: Negative except as documented in history of present illness. Musculoskeletal: Negative except as documented in history of present illness. Integumentary: Negative except as documented in history of present illness. Neurologic: Negative except as documented in history of present illness. Health Status Allergies: Allergic Reactions (Selected) Severity Not Documented Sulfa- Rash., Allergies (1) ActiveReaction sulfaRash Current medications: (Selected) Inpatient Medications Ordered Kefzol: 3 gram(s), 80 mL, 240 mL/hr, IV Piggyback, PREOP pharm Lopressor: 100 mg, 1 tab(s), Oral, PREOP pharm Peridex 0.12% oral rinse liquid: 15 mL, Swish & Spit, PREOP pharm mupirocin 2% topical ointment: 1 cristopher, Nostril, each, BID Documented Medications Documented Eliquis 2.5 mg oral tablet: 2.5 mg, 1 tab(s), Oral, qHS, 0 Refill(s) Entresto 24 mg-26 mg oral tablet: 1 tab(s), Oral, BID, 0 Refill(s) Gemtesa 75 mg oral tablet: 75 mg, 1 tab(s), Oral, qHS, 30 tab(s), 0 Refill(s) Lasix 40 mg oral tablet: 40 mg, 1 tab(s), Oral, qAM, 0 Refill(s) Lopressor 100 mg oral tablet: 100 mg, 1 tab(s), Oral, BID, 0 Refill(s) Myrbetriq 50 mg oral tablet, extended release: 50 mg, Oral, BID, 0 Refill(s) Tresiba FlexTouch 200 units/mL 3 mL subcutaneous solution: 40 unit(s), Subcutaneous, qDay, rotate injection sites, 9 mL, 0 Refill(s) acetaminophen 500 mg oral capsule: 1,000 mg, 2 cap(s), Oral, q6hr, PRN: as needed for pain, 0 Refill(s) albuterol MDI (90 mcg/inh) CFC free inhalation aerosol: Inhalation, q4h, PRN: Shortness of breath or wheezing, 0 Refill(s) dilTIAZem 240 mg/24 hours oral capsule, extended release: 240 mg, 1 cap(s), Oral, qHS, 0 Refill(s) ferrous sulfate 325 mg (65 mg elemental iron) oral delayed release tablet: 325 mg, 1 tab(s), Oral, qDay, 0 Refill(s) glimepiride 1 mg oral tablet: 1 mg, 1 tab(s), Oral, qDay, Take with food, 0 Refill(s) levothyroxine 200 mcg (0.2 mg) oral tablet: 200 mcg, 1 tab(s), Oral, qDay, 0 Refill(s) levothyroxine 50 mcg (0.05 mg) oral tablet: 50 mcg, 1 tab(s), Oral, qDayAC, 0 Refill(s) potassium chloride 20 mEq oral tablet, extended release: 20 mEq, 1 tab(s), Oral, Daily, 0 Refill(s) rosuvastatin 20 mg oral tablet: 20 mg, 1 tab(s), Oral, qHS, 0 Refill(s), Medications (4) Active Scheduled: (4) ceFAZolin bag 3 gram(s) 80 mL, IV Piggyback, PREOP pharm chlorhexidine topical 0.12% Liquid (60 mL) 15 mL, Swish & Spit, PREOP pharm metoprolol tartrate 100 mg tablet 100 mg 1 tab(s), Oral, PREOP pharm mupirocin 2% Ointment 22 Gram(s) tube 1 crsitopher, Nostril, each, BID Continuous: (0) PRN: (0) Problem list: Medical Atrial fibrillation / SNOMED CT 57699108 / Confirmed Chronic kidney disease (CKD) / SNOMED CT 8725412723 / Confirmed COPD (chronic obstructive pulmonary disease) / SNOMED CT 48732137 / Confirmed CHF (congestive heart failure) / SNOMED CT 95300198 / Confirmed On home oxygen therapy / SNOMED CT 0505832024 / Confirmed Diabetes / SNOMED CT 299036999 / Confirmed Hyperlipidemia / SNOMED CT 35785077 / Confirmed HTN (hypertension) / SNOMED CT 4516534719 / Confirmed Hypothyroidism / SNOMED CT 19841539 / Confirmed Breast cancer / SNOMED CT 637230443 / Confirmed Recurrent left pleural effusion / SNOMED CT 44658664 / Confirmed Pulmonary hypertension / SNOMED CT 976918116 / Confirmed, Active Problems (18) Age-related macular degeneration Arthritis Atrial fibrillation Breast cancer CHF (congestive heart failure) Chronic kidney disease (CKD) COPD (chronic obstructive pulmonary disease) Diabetes Glasses Hard of hearing History of radiation therapy HTN (hypertension) Hyperlipidemia Hypothyroidism On home oxygen therapy Presence of dental prosthetic device Pulmonary hypertension Recurrent left pleural effusion Histories Past Medical History: No active or resolved past medical history items have been selected or recorded. Family History: Breast cancer Daughter Cancer of colon Mother Thyroid cancer Daughter Bladder cancer Mother Coronary artery disease Sister Skin cancer Mother Procedure history: Thoracentesis ([id number]) on 06/17/2023 at 83 Years. Comments: 06/24/2023 16:01 Susan Mccray RN 14th one for 1330cc Cardioversion ([id number]) on 03/20/2019 at 79 Years. Cardiac catheterization, left heart ([id number]) on 05/31/2014 at 74 Years. Colonoscopy (871438232). Cataract extraction (70603802). Excision biopsy of skin lesion (167944210). Hysterectomy (291743286). Lumpectomy of right breast (2696438506). Social History Social & Psychosocial Habits Alcohol 07/10/2023 Use: Rare Frequency: 1-2 times per year Comment: holidays/special occasions only - 04/19/2023 09:37 - Lovely Reardon RN Substance Abuse 07/10/2023 Use: Never Tobacco 07/10/2023 Tobacco Use: Former smoker, quit more Type: Cigarettes Started at age: 15 Years Stopped at age: 53 Years Comment: smoked 2 PPD, quit 1989 - 04/19/2023 09:36 - Lovely Reardon RN Home/Environment 07/10/2023 Living situation: Home/Independent Safe place to go: Yes Domestic Concerns None Lives In Single level home Current Home Treatments Oxygen therapy Nutrition/Health 07/10/2023 Type of diet: Low sodium Caffeine intake amount: none Appetite Good Eating Difficulties None . Physical Examination Vital Signs 07/10/2023 6:09 EDT Temperature Temporal Artery 36.5 DegC Peripheral Pulse Rate 90 bpm Respiratory Rate 16 br/min Systolic Blood Pressure Non-Invasive 140 mmHg Diastolic Blood Pressure Non-Invasive 71 mmHg Vital Signs(last 24 hrs) Last Charted WLF636 mmHg (JUL 09 06:09) DBP71 mmHg (JUL 09 06:09) BMI41.04 (JUL 09 06:17) General: Alert and oriented. Airway: Normal temporomandibular joint mobility, Normal mouth, Normal throat, Normal neck range of motion, Trachea midline. Mallampati classification: II (soft palate, fauces, uvula visible). Head: Normocephalic. Dentition Evaluation: Intact, No teeth, Denies loose/chipped teeth. Neck: Supple. Respiratory: Lungs are clear to auscultation, Respirations are non-labored. Cardiovascular: Normal rate, No murmur. Heart Sounds: Normal. Neurologic: Alert, Oriented. Review / Management Results review: Labs (Last four charted values) Plt 255(JUL 09) PT 10.3(JUL 09) INR 0.9(JUL 09) PTT 29.2(JUL 09) . Assessment and Plan [place] [employer]hesi[employer] (ASA) physical status classification: Class IV. Anesthetic Preoperative Plan Premedication: None. Anesthetic technique: General. Induction: intravenously. Maintenance airway: Oral endotracheal tube, EBB. Special techniques: Warming device, Fiberoptic Bronchoscopy. Special Monitoring: Arterial line. Postoperative pain management: Per surgeon. Risks discussed: nausea, vomiting, headache, sore throat, dental injury, hypotension, allergic reaction, serious complications, Heart Problems, Lung Problems, Stroke, Intraoperative Recall, . Informed consent: signed by patient. Beta Triny: Beta Triny Taken Within 24 Hrs. Digitally Signed by FELICIANO MALONE MD on 07/10/2023 07:38 AM [facility] [id number] Note. MICRO - Microbiology PROCEDURE: Urine Culture [O1 *1] SOURCE: Urine, Clean Catch BODY SITE: COLLECTED DATE/TIME: 07/03/2023 12:47 EDT RECEIVED DATE/TIME: 07/04/2023 10:57 EDT START DATE/TIME: 07/04/2023 10:57 EDT FREE TEXT SOURCE: FINAL REPORTS Final Report [] Verified Date/Time/Personnel: 07/05/2023 15:02 EDT >100,000 cfu/ml Multiple bacterial morphotypes present. Probable Contamination. Suggest recollection if clinically indicated. PRELIMINARY REPORTS Preliminary Report [] Verified Date/Time/Personnel: 07/05/2023 10:28 EDT Culture results pending. Order Comments O1: Urine Culture 4+ Bacteria in urine Performing Locations *1: This test was performed at: [facility], [address] [place] [address], [facility]- , [facility] ([place])06-27-2023 [facility]03-21-2024 Procedure [facility]03-08-2024 [facility]02-26-2024 Procedure [facility]02-14-2024 [facility]-07-2024 [facility]01-29-2024 [facility]-09-2024 Procedure [facility]12-29-2023 Procedure [facility]12-01-2023 Progress note Author Christina Menard [facility] February 15, 2023 6:27pm Note Date/Time February 15, 2023 9 :31am [facility] Medical Records Department [address] [place] [address] Progress Note - Hospitalist 02/15/2325 MR#: [id number] Acct: [id number] Name: TONJA SÁNCHEZ Rep #:[id number] 1 : 1940 83 From: Christina Menard MD PCP: Dr. Alexy Douglas MD Status:ADM I N Location: [place] [address] Reason for Visit Reason for Visit: Diagnoses Unspecified atrial fibrillation (02/14/23) Pleural effusion, not elsewhere classified (02/14/23) Subjective Subjective Breathing is improving after thoracentesis Objective Data Objective Data Vital Signs: Vital Signs Temp Pulse Resp BP Pulse Ox O2 Del Method O2 Flow Rate 97.7 F L 51 L 20 H 154/85 H 92 Room Air 2 02/15/23 08:00 02/15/23 08:25 02/15/23 08:25 02/15/23 08:00 02/15/23 08:00 02/15/23 08:25 02/14/23 22:00 Oxygen Flow Rate (L/min) 2 Oxygen Delivery Method Room Air Weight: 114.4 kg Body Mass Index (BMI) 38.2 Intake & Output: Intake and Output for Last 24 Hours 02/13/23 02/14/23 02/15/23 23:59 23:59 23:59 Intake Total 240 / 240 Output Total 900 / 900 Balance -660 / -660 Lab / Micro Data 02/15/23 06:05 02/15/23 06:05 Labs: Laboratory Results - last 24 hr 02/14/23 16:20: WBC 8.9, RBC 4.35, Hgb 12.5, Hct 40.2, MCV 92.4, MCH 28.7, MCHC 31.1 L, RDW Std Deviation 48.3 H, RDW Coeff of Sudha 14.3, Plt Count 271, MPV 10.4, Immature Gran % (Auto) 0.900, Neut % (Auto) 71.1 H, Lymph % (Auto) 13.7 L,Bath % (Auto) 10.8 H, Eos % (Auto) 2.8, Baso % (Auto) 0.7, Absolute Neuts (auto)6.3, Absolute Lymphs (auto) 1.22, Nucleated RBC % 0, PT 12.9, INR 1.0, APTT 30.3, Sodium 142, Potassium 4.0, Chloride 108 H, Carbon Dioxide 30.0, Anion Gap 4 L,BUN 41 H, Creatinine 1.52 H, Estim Creat Clear Calc 27.79, Est GFR (MDRD) Af Amer 42 L, Est GFR (MDRD) Non-Af 35 L, BUN/Creatinine Ratio 27.0 H, Glucose 96, Lactic Acid 0.9, Calcium 8.6, Total Bilirubin 0.30, AST 12 L, ALT 18, Alkaline Phosphatase 70, Lactate Dehydrogenase 210, Troponin I High Sens 21, B-Natriuretic Peptide 354.0 H, Total Protein 6.2 L, Albumin 2.1 L, Globulin 4.1, Albumin/Globulin Ratio 0.5 L, TSH 2.07 02/14/23 16:32: Urine Color Yellow, Urine Clarity Sl. Cloudy, Urine pH 5.0, Ur Specific Franc[place] 1.020, Urine Protein 100 H, Urine Glucose (UA) Normal, Urine Ketones Negative, Urine Occult Blood 10 H, Urine Nitrite Negative, Urine Bilirubin Negative, Urine Urobilinogen 1 H, Ur Leukocyte Esterase Negative, Urine RBC 0 SEEN, Urine WBC 0 SEEN, Ur Squamous Epith Cells 0-5 SEEN, Amorphous Sediment 2+, Urine Bacteria 0 SEEN, Urine Mucus 0 SEEN 02/14/23 20:43: POC Glucose 153 H 02/15/23 05:51: POC Glucose 112 H 02/15/23 06:05: WBC 9.2, RBC 4.31, Hgb 12.7, Hct 40.7, MCV 94.4, MCH 29.5, MCHC 31.2 L, RDW Std Deviation 49.8 H, RDW Coeff of Sudha 14.2, Plt Count 255, MPV 10.1, Sodium 141, Potassium 3.8, Chloride 106, Carbon Dioxide 32.0, Anion Gap 3 L, BUN 37 H, Creatinine 1.54 H, Estim Creat Clear Calc 27.43, Est GFR (MDRD) Af Amer 41 L, Est GFR (MDRD) Non-Af 34 L, BUN/Creatinine Ratio 24.0 H, Glucose 118 H, Hemoglobin A1c 7.1 H, Calcium 9.0, Lactate Dehydrogenase 222, Total Protein 6.4, Globulin 4.1, Albumin/Globulin Ratio 0.6 L Micro: Microbiology 02/14/23 16:20 Nasal Secretion SARS-CoV-2 & FLU Antigen (Rapid) - Final Radiography Diagnostic Testing: Radiology Impression Chest X-Ray 02/14/23 16:50 IMPRESSION: Moderate left pleural effusion unchanged Electronically Signed: Bharath Carrillo MD at 17:39 EST Reading Location ID and State: [address] [place] [address] Tel , Service support , Chest/Abdomen/Pelvis CT 02/14/23 18:32 IMPRESSION: Mild ileus. Left lower lobe airspace disease and loculated effusion increased. Stable right lower lobe interstitial infiltrate. Bilateral nonobstructing nephroliths. 14 mm sclerotic lesion right acetabulum. Bone scan may be helpful if metastatic disease is a concern. Electronically Signed: Bharath Carrillo MD at 21:21 EST Reading Location ID and State: [facility] / [place] Tel , Service support , Physical Exam Narrative General: Alert, oriented, no apparent distress HEENT: Atraumatic, normocephalic Eyes: Anicteric, normal conjunctiva, extraocular movements grossly intact Neck: Supple Respiratory: Slightly coarse at bases, normal respiratory effort Cardiovascular: Intermittently mildly tachycardic GI: Soft, nontender, nondistended Extremities: No edema Musculoskeletal: Moving all extremities Neuro: No overt focal neurological deficits Skin: No rashes appreciated Psych: Cooperative Assessment & Plan Assessment/Plan (1) Pleural effusion, left: (2) Atrial fibrillation: PLAN: Plan Patient is an 83-year-old female who presented with [facility] ED on 02/14/2023with worsening shortness of breath with exertion. 1. Recurrent left-sided pleural effusion, acute hypoxia with history of COPD Unclear etiology of pleural effusions at this time. S/p thoracentesis on 01/25 with 1.5 L of fluid removed, repeat thoracentesis on 02/12 with 2 L of fluid removed. Chest x-ray on admit with moderate recurrent left-sided pleural effusion. Patient satting in mid 90s on 2 L nasal cannula in the ED. Fluid studies from thoracentesis on 01/25 show a transudative fluid but atypical epithelioid cells were noted. Appears that effusion was suspected to be secondary to heart failure in setting of poorly controlled A-fib with RVR. However, I would not expect a one-sided pleural effusion to recur this quickly if only secondary to heart failure. Have concern for an underlying malignancy given patient's known history of breast cancer. CT chest/abdomen/pelvis withoutcontrast admission showed a 14 mm sclerotic right acetabular lesion, with radiology recommendation that a bone scan could be helpful if metastatic diseaseis a concern; no other overt malignant findings. ? Admit under inpatient status to PCU. Pulmonology consulted. Orders placed for ultrasound-guided thoracentesis with radiology tomorrow with appropriate fluid studies. Wean supplemental oxygen as able. Continued home short acting inhaler as needed. -02/15: Pulm following, ultrasound-guided thoracentesis, will need to reestablish in pulmonary medicine office and may need outpatient referral for thoracic surgery, autoimmune work-up pending 2. Paroxysmal atrial fibrillation with RVR Follows with cardiology, last office visit on 11/30/2022. Has longstanding history of paroxysmal A-fib. Failed cardioversion in 2019. Patient was also intolerant of amiodarone. Since then, patient has been successfully rate controlled per cardiology. Home medications appear to be Lopressor 100 daily, diltiazem 240 mg twice daily, Eliquis 2.5 twice daily. EKG on admit showed A-fib with heart rate in the 120s. Unclear if the A-fib with RVR could be causingvolume overload, or rather secondary to possible cardiac excitation due to volume overload. S/p IV diltiazem 10 mg x 1 dose in the ED with some improvement in her heart rate. ? Continue home Cardizem, Lopressor, Eliquis. IV Lopressor every 6 hours as needed ordered as well. Monitor telemetry. Low threshold to consult cardiology. -02/15: Continue Eliquis, patient also on diltiazem, Lasix, metoprolol. Last echo was in 2021 with an EF of 60% and unable to assess diastolic dysfunction, will repeat echo given presentation, recurrent effusion, A-fib with RVR 3. Debility Patient lives at home by herself, has previously been able to do all things around the house for self without significant issue. However, given her recurrent pleural effusions recently with worsening shortness of breath on exertion,she has had difficulty doing things around the home on her own. ? PT/OT/case management consulted. Chronic medical conditions: ? Hypertension, hyperlipidemia, CHF: Continue home diltiazem, Lopressor, statin,Entresto. Home diuretic regimen is unclear, will start p.o. Lasix 40 mg twice daily for now. ? Obesity: BMI 38 on admit. Encouraged lifestyle modifications. Complicates care and prognosis. ? CKD stage III: Creatinine 1.52 on admission, at baseline. Monitor BMP. ? Type 2 diabetes: Home medications of insulin degludec 40 units at night, glimepiride 1 mg daily. Last A1c of 6.9% in 09/2022. BG 96 on admit. Will start Lantus 25 units at night with sliding scale insulin for now, adjust regimen as needed. Repeat A1c ordered. ? Hypothyroidism: Most recent TSH of 2.92 on 10/15/2022. Repeat TSH ordered. Continue home Synthroid. ? Overactive bladder: Continue home Myrbetriq. ? S/p left knee replacement in 11/2022 ? Remote history of right-sided breast cancer s/p lumpectomy DVT prophylaxis: Eliquis CODE STATUS: Full code, verified Expected disposition: TBD Total clinical time spent by myself addressing the patient's medical issues, reviewing all the data, and collaborating with patient's care team: 40 minutes. Charges/Coding Visit Charges Inpatient E&M: 92965 Subs Hosp L2 02/15/237 <Electronically signed by Christina Menard MD> Cosigner Signature (if applicable): CC: ~ Signed [facility] Work Phone: 1(838) 701-263612-01-2023 Procedure [facility] 02-15-2023 Consult note Author Edgardo Greenwood [facility] February 15, 2023 8:22am Note Date/Time February 15, 2023 8 :10am [facility] Medical Records Department [address] [place] [address] Consultation - Miner Assistant 02/15/23 08 MR#: [id number] Acct: [id number] Name: TONJA SÁCNHEZ Rep #:[id number] : 1940 83 From: Edgardo Greenwood DO PCP: Dr. Alexy Douglas MD Status:ADM I NO Location: [place] [id number] Assessment & Plan Assessment/Plan (1) Pleural effusion, left: PLAN: Plan RECOMMENDATIONS: 1. Plan for ultrasound-guided thoracentesis. 2. Check pleural fluid cell count and differential, cultures, LDH, total protein and glucose. 3. Autoimmune work-up is ordered. 4. Supplemental oxygen, if needed, to maintain saturations at or above 90%. 5. Consider cardiology consultation for medical optimization of her CHF and atrial fibrillation. 6. Ultimately, the patient may likely require outpatient referral to thoracic surgery, given the loculated nature of the effusion. 7. The patient needs to reestablish care in the pulmonary medicine office. Shehas been lost to follow-up for the last 3 years. IMPRESSIONS: 1. Recurrent pleural effusion Unclear etiology. Cardiac implications are certainly a possibility given her elevated BNP and atrial fibrillation with RVR at presentation. However, prior pleural fluid analysis revealed lymphocyte predominance. Therefore, will obtainautoimmune work-up as well. In the interim, would recommend a repeat thoracentesis for therapeutic relief. It would likely be worthwhile having the patient evaluated by cardiology for further medical optimization of her CHF and atrial fibrillation. Given that the patient is developing a complicated pleuralspace on CT imaging, she will likely require outpatient referral to thoracic surgery. At the present time, the patient is maintaining appropriate oxygen saturations on room air. 2. Heart failure with preserved ejection fraction/atrial fibrillation with RVR Continue diuresis as tolerated by hemodynamics and renal function. Continue Cardizem and beta-triny for rate control. As noted above, consider cardiologyevaluation for medical optimization. 3. History of mild COPD The patient was previously established in the pulmonary medicine office, but hasbeen lost to follow-up since 2019. Prior PFTs only demonstrated a mild obstructive ventilatory impairment. Continue as needed aerosol treatments. Reestablish care in the pulmonary medicine office. 4. History of chronic kidney disease/diabetes mellitus/hypothyroidism/obesity/hypertension Complicates care, management, recovery and prognosis. Continue home medicationsas indicated. This note was generated with [employer] software. It may contain incorrectwords, spelling, and punctuation that were not noted in checking the note beforesigning. HPI Consult Data Date of Consult: 02/15/23 HPI Narrative Reason for Consultation: Pleural effusion HPI Narrative: The patient is an 83-year-old female, with a history as outlined below, who presented to the emergency department on February 14 with worsening shortness ofbreath. The patient has a known history of mild obstructive lung disease based upon prior PFTs and heart failure with preserved ejection fraction. Previously,the patient was evaluated in the pulmonary medicine clinic, but has been lost tofollow-up since 2019. More recently, the patient has been suffering from shortness of breath related to a recurrent left-sided pleural effusion. The patient initially underwent an ultrasound-guided thoracentesis on January 25 with 1.5 L of fluid removed. Theprocedure once again had to be repeated on February 12 with 1.6 L of fluid removed. The pleural fluid itself was lymphocyte predominant on January 25. Cytology was negative for malignancy. On presentation to the emergency department, the patient was documented to be tachycardic and tachypneic. Initial laboratory evaluation revealed no evidence of a leukocytosis. Coagulation profile was unremarkable. Chemistry profile wasnotable for a creatinine of 1.52. Lactate was normal. BNP was elevated at 354. Chest x-ray demonstrated a moderate left-sided pleural effusion. CT chest/abdomen/pelvis demonstrated a left lower lobe consolidation with a moderate loculated effusion, cardiomegaly and a 1.4 cm sclerotic lesion involving the right acetabulum. The patient was noted to be in atrial fibrillation with RVR in the emergency department. The patient was subsequently admitted to the hospital, with tentative plans to undergo an ultrasound-guided thoracentesis. [facility] Medical History (Updated 02/14/23 @ 20:05 by Maria Esther Prakash) Actinic keratosis Atrial fibrillation Back pain BMI 39.0-39.9,adult Breast cancer Cancer Cardiology follow-up encounter Chronic anticoagulation Chronic diastolic (congestive) heart failure Chronic kidney disease, stage 3b CKD (chronic kidney disease) stage 3, GFR 30-59 ml/min COPD (chronic obstructive pulmonary disease) Diabetes Diabetes mellitus Diastolic dysfunction Dietary restriction Disc degeneration, lumbar Erosion of bladder suspension mesh Essential (primary) hypertension Fatigue Former smoker High cholesterol History of atrial fibrillation History of CHF (congestive heart failure) History of echocardiogram History of edema History of pain when walking History of renal disease History of steroid therapy History of stress test Hyperlipidemia Hypersomnia Hypertension Hypertension Hypothyroidism Hypoxia Injury of back Insulin dependent diabetes mellitus Longstanding persistent atrial fibrillation Low iron Non-rheumatic tricuspid valve insufficiency Obesity On home oxygen therapy Overactive bladder Restless legs Rheumatoid arthritis Right hip pain Secondary pulmonary arterial hypertension Shortness of breath on exertion Skin cancer Skin cancer, basal cell Skin lesion Stage 2 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 SHAKIRA (stress urinary incontinence, female) Tobacco dependence in remission UTI (urinary tract infection) Wears dentures Wears glasses Home Medications cholecalciferol (vitamin D3) 325 mcg (13,000 unit) capsule 325 mcg PO DAILY supplement 06/14/21 [History Last Taken 10/08/21] potassium chloride 20 mEq tablet,extended release 20 meq PO DAILY supplement 06/14/21 [History Last Taken 10/08/21] apixaban 2.5 mg tablet (Eliquis) 2.5 mg PO DAILY blood thinner 10/09/21 [History Last Taken 10/08/21] glimepiride 1 mg tablet 1 mg PO DAILY blood sugar 10/09/21 [History Last Taken 10/08/21] acetaminophen 500 mg tablet 1,000 mg (2 x 500 mg) PO Q6H PRN PRN Pain Score 1- 10#0 tabs 10/24/21 [Rx Last Taken Unknown] metoprolol tartrate 100 mg tablet 100 mg PO DAILY 10/30/21 [History Last Taken Unknown] insulin degludec 100 unit/mL (3 mL) subcutaneous pen 40 unit subcut QHS blood sugar 01/29/22 [History Last Taken Unknown] levothyroxine 200 mcg tablet 200 mcg PO DAILY thyroid 01/29/22 [History Last Taken Unknown] ferrous sulfate 325 mg (65 mg iron) tablet (Feosol) 325 mg PO DAILY 04/04/22 [History Last Taken Unknown] sacubitril 24 mg-valsartan 26 mg tablet (Entresto) 1 tab PO BID #1 TAB 04/23/22 [Rx Last Taken Unknown] furosemide 40 mg tablet 40 mg PO DAILY #90 tabs 08/28/22 [Rx Last Taken Unknown] diltiazem HCl 240 mg capsule,extended release 24 hr 240 mg PO BID heart #180 caps 09/27/22 [Rx Last Taken Unknown] rosuvastatin 20 mg tablet 20 mg PO QHS cholesterol #30 tabs 10/08/22 [Rx Last Taken Unknown] albuterol sulfate 90 mcg/actuation aerosol inhaler 1 inh inhalation Q4H PRN COPD11/14/22 [History Last Taken Unknown] mirabegron 50 mg tablet,extended release 24 hr (Myrbetriq) 50 mg PO QHS 11/14/22[History Last Taken Unknown] bumetanide 2 mg tablet 2 mg PO DAILY 02/14/23 [History Last Taken Unknown] levothyroxine 50 mcg tablet 50 mcg PO DAILY 02/14/23 [History Last Taken Unknown] meloxicam 15 mg tablet 15 mg PO DAILY 02/14/23 [History Last Taken Unknown] Allergy/AdvReac Type Severity Reaction Status Date / Time Sulfa (Sulfonamide Allergy PEELING Verified 02/14/23 15:52 Antibiotics) RASH Family History Mother Colon cancer Cancer skin, bladder Daughter Cancer Thyroid Sister CAD (coronary artery disease) Surgical History History of cardioversion (03/20/19) History of excision of lesion History of hysterectomy History of left heart catheterization (05/31/14) History of partial mastectomy Hx of colonoscopy Hx of left cataract extraction Hx of local excision of skin lesion Hx of right cataract extraction Social History (Updated 02/14/23 @ 16:43 by Doris Fernandez) household members: none housing: house current occupational status: retired Smoking Status: Former smoker how long ago did patient quit smokin, 2p/day second hand exposure: Yes alcohol intake: current alcohol intake frequency: holidays/special occasions only substance use type: does not use ROS ROS Narrative 10 systems were reviewed with pertinent positives as noted in the HPI above. Physical Exam Const alert and no apparent distress General Appearance: cooperative HEENT normocephalic and head/scalp atraumatic Eyes PERRL, EOMs intact bilaterally and conjunctivae normal Neck supple General: trachea midline Chest inspection of chest normal Resp normal respiratory effort Auscultation: diminished lung sounds left Cardio S1 normal heart sound and S2 normal heart sound Rhythm: abnormal rhythm GI normal to inspection, nondistended, normoactive bowel sounds Extremity General Extremity: edema; Negative for clubbing Skin no rashes or lesions noted Neuro oriented x3, CN's II-XII intact bilaterally and moves all extremities Psych cooperative and affect normal Lab / Micro Data 02/15/23 06:05 02/15/23 06:05 Labs: Laboratory Results - last 24 hr 02/14/23 16:20: WBC 8.9, RBC 4.35, Hgb 12.5, Hct 40.2, MCV 92.4, MCH 28.7, MCHC 31.1 L, RDW Std Deviation 48.3 H, RDW Coeff of Sudha 14.3, Plt Count 271, MPV 10.4, Immature Gran % (Auto) 0.900, Neut % (Auto) 71.1 H, Lymph % (Auto) 13.7 L,Bath % (Auto) 10.8 H, Eos % (Auto) 2.8, Baso % (Auto) 0.7, Absolute Neuts (auto)6.3, Absolute Lymphs (auto) 1.22, Nucleated RBC % 0, PT 12.9, INR 1.0, APTT 30.3, Sodium 142, Potassium 4.0, Chloride 108 H, Carbon Dioxide 30.0, Anion Gap 4 L, BUN 41 H, Creatinine 1.52 H, Estim Creat Clear Calc 27.79, Est GFR (MDRD) Af Amer 42 L, Est GFR (MDRD) Non-Af 35 L, BUN/Creatinine Ratio 27.0 H, Glucose 96, Lactic Acid 0.9, Calcium 8.6, Total Bilirubin 0.30, AST 12 L, ALT 18, Alkaline Phosphatase 70, Lactate Dehydrogenase 210, Troponin I High Sens 21, B-Natriuretic Peptide 354.0 H, Total Protein 6.2 L, Albumin 2.1 L, Globulin 4.1, Albumin/Globulin Ratio 0.5 L, TSH 2.07 02/14/23 16:32: Urine Color Yellow, Urine Clarity Sl. Cloudy, Urine pH 5.0, Ur Specific Franc[place] 1.020, Urine Protein 100 H, Urine Glucose (UA) Normal, Urine Ketones Negative, Urine Occult Blood 10 H, Urine Nitrite Negative, Urine Bilirubin Negative, Urine Urobilinogen 1 H, Ur Leukocyte Esterase Negative, Urine RBC 0 SEEN, Urine WBC 0 SEEN, Ur Squamous Epith Cells 0-5 SEEN, Amorphous Sediment 2+, Urine Bacteria 0 SEEN, Urine Mucus 0 SEEN 02/14/23 20:43: POC Glucose 153 H 02/15/23 05:51: POC Glucose 112 H 02/15/23 06:05: WBC 9.2, RBC 4.31, Hgb 12.7, Hct 40.7, MCV 94.4, MCH 29.5, MCHC 31.2 L, RDW Std Deviation 49.8 H, RDW Coeff of Sudha 14.2, Plt Count 255, MPV 10.1, Sodium 141, Potassium 3.8, Chloride 106, Carbon Dioxide 32.0, Anion Gap 3 L, BUN 37 H, Creatinine 1.54 H, Estim Creat Clear Calc 27.43, Est GFR (MDRD) Af Amer 41 L, Est GFR (MDRD) Non-Af 34 L, BUN/Creatinine Ratio 24.0 H, Glucose 118 H, Calcium 9.0 Micro: Microbiology 02/14/23 16:20 Nasal Secretion SARS-CoV-2 & FLU Antigen (Rapid) - Final Imagaing Radiology Impression Chest X-Ray 02/14/23 16:50 IMPRESSION: Moderate left pleural effusion unchanged Electronically Signed: Bharath Carrillo MD at 17:39 EST Reading Location ID and State: [address] [place] [address] Tel , Service support , Chest/Abdomen/Pelvis CT 02/14/23 18:32 IMPRESSION: Mild ileus. Left lower lobe airspace disease and loculated effusion increased. Stable right lower lobe interstitial infiltrate. Bilateral nonobstructing nephroliths. 14 mm sclerotic lesion right acetabulum. Bone scan may be helpful if metastatic disease is a concern. Electronically Signed: Bharath Carrillo MD at 21:21 EST Reading Location ID and State: [facility] / [place] Tel , Service support , Charges/Coding Visit Charges Inpatient E&M: 58408 Init Hosp L3 02/15/23 0822 <Electronically signed by Edgardo Greenwood DO> Cosigner Signature (if applicable): CC: WILDER Galan; Dr. Amaury Pena DO; Dr. Bradley Morel MD; Dr. Edgardo Greenwood DO; Dr. Tobin Medel MD; Dr. Alexy Douglas MD; Dr. Ricky Clayton MD~ Signed [facility] Work Phone: 1(134) 585-726212-01-2023 History and physical note Author Amaury Pena [facility] February 14, 2023 10:39pm Note Date/Time February 14, 2023 6:02pm [facility] Medical Records Department [address] [place] [address] H&P Exam - Hospitalist 02/14/23 1751 MR#: [id number] Acct: [id number] Name: TONJA SÁNCHEZ Rep #:[id number] : 1940 83 From: Amaury gilbert DO PCP: Dr. Alexy Douglas MD Status:ADM I NO Location: [place] [address] HPI - General General Date of Admission: 02/14/23 Date of Service: 02/14/23 Chief Complaint: Worsening dyspnea on exertion HPI Narrative TONJA SÁNCHEZ, is a 83 F who presented to [facility] ED on 02/14/2023 with worsening dyspnea on exertion. Patient seen at bedside in the ED. Sitting comfortably in bed, conversing normally, no acute distress. Patient satting in the mid 90s on 2 L nasal cannula, no increased work of breathing noted. Patient has recently required 2 thoracenteses with significantfluid removal from left side of her chest. First thoracentesis was on 01/25, had 1.5 L of fluid removed. Second thoracentesis was on 02/12, had 2 L removed at that time. Patient states that she tolerated both those procedures well. However, she had worsening shortness of breath on exertion starting yesterday, similar to previous. She was concerned that the fluid had reaccumulated and came to the ED for further evaluation. Patient follows cardiology in the office, last office visit was about 2 months ago. She primarily follows with them for her atrial fibrillation and diastolic heart failure. Patient states for medications have not changed much recently, and her heart rate was currentlywell-controlled with her medications at home until recently. She has no previous history of heart failure exacerbations. Patient does have a remote history of right-sided breast cancer, had a lumpectomy done at that time with norecurrence of her cancer. Patient denies any recent unintentional weight loss, night sweats, fevers or chills. Patient lives at home by her self, has been able to do things around the home for self without issue up to this point. However, with her recurrent shortness of breath she has had difficulty completing tasks on the home. Denies any other acute concerns at this time. [facility] Medical History (Updated 02/14/23 @ 20:05 by Maria Esther Prakash) Actinic keratosis Atrial fibrillation Back pain BMI 39.0-39.9,adult Breast cancer Cancer Cardiology follow-up encounter Chronic anticoagulation Chronic diastolic (congestive) heart failure Chronic kidney disease, stage 3b CKD (chronic kidney disease) stage 3, GFR 30-59 ml/min COPD (chronic obstructive pulmonary disease) Diabetes Diabetes mellitus Diastolic dysfunction Dietary restriction Disc degeneration, lumbar Erosion of bladder suspension mesh Essential (primary) hypertension Fatigue Former smoker High cholesterol History of atrial fibrillation History of CHF (congestive heart failure) History of echocardiogram History of edema History of pain when walking History of renal disease History of steroid therapy History of stress test Hyperlipidemia Hypersomnia Hypertension Hypertension Hypothyroidism Hypoxia Injury of back Insulin dependent diabetes mellitus Longstanding persistent atrial fibrillation Low iron Non-rheumatic tricuspid valve insufficiency Obesity On home oxygen therapy Overactive bladder Restless legs Rheumatoid arthritis Right hip pain Secondary pulmonary arterial hypertension Shortness of breath on exertion Skin cancer Skin cancer, basal cell Skin lesion Stage 2 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 SHAKIRA (stress urinary incontinence, female) Tobacco dependence in remission UTI (urinary tract infection) Wears dentures Wears glasses Home Medications cholecalciferol (vitamin D3) 325 mcg (13,000 unit) capsule 325 mcg PO DAILY supplement 06/14/21 [History Last Taken 10/08/21] potassium chloride 20 mEq tablet,extended release 20 meq PO DAILY supplement 06/14/21 [History Last Taken 10/08/21] apixaban 2.5 mg tablet (Eliquis) 2.5 mg PO DAILY blood thinner 10/09/21 [History Last Taken 10/08/21] glimepiride 1 mg tablet 1 mg PO DAILY blood sugar 10/09/21 [History Last Taken 10/08/21] acetaminophen 500 mg tablet 1,000 mg (2 x 500 mg) PO Q6H PRN PRN Pain Score 1- 10#0 tabs 10/24/21 [Rx Last Taken Unknown] metoprolol tartrate 100 mg tablet 100 mg PO DAILY 10/30/21 [History Last Taken Unknown] insulin degludec 100 unit/mL (3 mL) subcutaneous pen 40 unit subcut QHS blood sugar 01/29/22 [History Last Taken Unknown] levothyroxine 200 mcg tablet 200 mcg PO DAILY thyroid 01/29/22 [History Last Taken Unknown] ferrous sulfate 325 mg (65 mg iron) tablet (Feosol) 325 mg PO DAILY 04/04/22 [History Last Taken Unknown] sacubitril 24 mg-valsartan 26 mg tablet (Entresto) 1 tab PO BID #1 TAB 04/23/22 [Rx Last Taken Unknown] furosemide 40 mg tablet 40 mg PO DAILY #90 tabs 08/28/22 [Rx Last Taken Unknown] diltiazem HCl 240 mg capsule,extended release 24 hr 240 mg PO BID heart #180 caps 09/27/22 [Rx Last Taken Unknown] rosuvastatin 20 mg tablet 20 mg PO QHS cholesterol #30 tabs 10/08/22 [Rx Last Taken Unknown] albuterol sulfate 90 mcg/actuation aerosol inhaler 1 inh inhalation Q4H PRN COPD11/14/22 [History Last Taken Unknown] mirabegron 50 mg tablet,extended release 24 hr (Myrbetriq) 50 mg PO QHS 11/14/22[History Last Taken Unknown] bumetanide 2 mg tablet 2 mg PO DAILY 02/14/23 [History Last Taken Unknown] levothyroxine 50 mcg tablet 50 mcg PO DAILY 02/14/23 [History Last Taken Unknown] meloxicam 15 mg tablet 15 mg PO DAILY 02/14/23 [History Last Taken Unknown] Allergy/AdvReac Type Severity Reaction Status Date / Time Sulfa (Sulfonamide Allergy PEELING Verified 02/14/23 15:52 Antibiotics) RASH Family History Mother Colon cancer Cancer skin, bladder Daughter Cancer Thyroid Sister CAD (coronary artery disease) Surgical History History of cardioversion (03/20/19) History of excision of lesion History of hysterectomy History of left heart catheterization (05/31/14) History of partial mastectomy Hx of colonoscopy Hx of left cataract extraction Hx of local excision of skin lesion Hx of right cataract extraction Social History (Updated 02/14/23 @ 16:43 by Doris Fernandez) household members: none housing: house current occupational status: retired Smoking Status: Former smoker how long ago did patient quit smokin, 2p/day second hand exposure: Yes alcohol intake: current alcohol intake frequency: holidays/special occasions only substance use type: does not use ROS Constitutional Constitutional: Reports fatigue; Denies change in weight, chills, fever(s) or weakness Eyes Eyes: Denies change in vision Cardiovascular Cardiovascular: Reports dyspnea on exertion, edema and orthopnea; Denies chest pain, lightheadedness, rapid heart rate or syncope Respiratory/Chest Respiratory/Chest: Denies cough, shortness of breath at rest or wheezing Gastrointestinal Gastrointestinal: Denies abdominal pain Genitourinary Genitourinary: Denies dysuria Neurologic Neurologic: Denies dizziness, focal weakness, headache(s), numbness or paresthesias Vital Signs Vital Signs Vital Signs: 02/14/23 15:52 02/14/23 16:42 02/14/23 16:50 Temperature 97.2 F L Temperature Source Temporal Pulse Rate 122 H 127 H Respiratory Rate 24 H 27 H Respiratory Effort Short of Breath Respiratory Pattern Tachypnea Blood Pressure 125/85 H Blood Pressure Mean 98 Pulse Ox 92 96 Oxygen Delivery Method Room Air Nasal Cannula Nasal Cannula Oxygen Flow Rate (L/min) 1 1 02/14/23 16:25 02/14/23 17:05 Temperature Temperature Source Pulse Rate 113 H Respiratory Rate Respiratory Effort Respiratory Pattern Blood Pressure Blood Pressure Mean Pulse Ox Oxygen Delivery Method Nasal Cannula Oxygen Flow Rate (L/min) 2 Weight Weight: 116.9 kg Body Mass Index (BMI) 39.0 Physical Exam Const alert and oriented x3 Constitutional Narrative: Pleasant elderly female, obese, sitting comfortably in bed, conversing normally,no acute distress. Satting in mid 90s on 2 L nasal cannula, no increased work of breathing noted. General Appearance: cooperative and comfortable HEENT normocephalic, head/scalp atraumatic, hearing grossly normal bilaterally, nasal mucous membranes and turbinates normal and moist oral mucous membranes Eyes PERRL, EOMs intact bilaterally and conjunctivae normal Neck full ROM, no lymphadenopathy and supple Lymph Lymphatic: no lymphadenopathy noted Chest inspection of chest normal Resp Resp Narrative: Significantly decreased breath sounds in left lung base. Otherwise, mildly decreased breath sounds throughout. No wheezing or crackles noted. Cardio no murmurs and peripheral pulses 2+ throughout Cardio Narrative: Tachycardic, irregular rhythm. GI normal to inspection, nondistended, normoactive bowel sounds, soft to palpation,non-tender and non-distended Back/Spine normal ROM Extremity full ROM Extremity Narrative: +2-3 bilateral lower extremity pitting edema. Skin no rashes or lesions noted Neuro moves all extremities and no focal motor deficits Speech: speech normal Psych mental status grossly normal Results Lab / Micro Data 02/14/23 16:20 02/14/23 16:20 Labs: Laboratory Results - last 24 hr 02/14/23 16:20: WBC 8.9, RBC 4.35, Hgb 12.5, Hct 40.2, MCV 92.4, MCH 28.7, MCHC 31.1 L, RDW Std Deviation 48.3 H, RDW Coeff of Sudha 14.3, Plt Count 271, MPV 10.4, Immature Gran % (Auto) 0.900, Neut % (Auto) 71.1 H, Lymph % (Auto) 13.7 L,Bath % (Auto) 10.8 H, Eos % (Auto) 2.8, Baso % (Auto) 0.7, Absolute Neuts (auto)6.3, Absolute Lymphs (auto) 1.22, Nucleated RBC % 0, Sodium 142, Potassium 4.0, Chloride 108 H, Carbon Dioxide 30.0, Anion Gap 4 L, BUN 41 H, Creatinine 1.52 H,Estim Creat Clear Calc 27.79, Est GFR (MDRD) Af Amer 42 L, Est GFR (MDRD) Non-Af35 L, BUN/Creatinine Ratio 27.0 H, Glucose 96, Lactic Acid 0.9, Calcium 8.6, Total Bilirubin 0.30, AST 12 L, ALT 18, Alkaline Phosphatase 70, Troponin I HighSens 21, B-Natriuretic Peptide 354.0 H, Total Protein 6.2 L, Albumin 2.1 L, Globulin 4.1, Albumin/Globulin Ratio 0.5 L 02/14/23 16:32: Urine Color Yellow, Urine Clarity Sl. Cloudy, Urine pH 5.0, Ur Specific Francitas 1.020, Urine Protein 100 H, Urine Glucose (UA) Normal, Urine Ketones Negative, Urine Occult Blood 10 H, Urine Nitrite Negative, Urine Bilirubin Negative, Urine Urobilinogen 1 H, Ur Leukocyte Esterase Negative, Urine RBC 0 SEEN, Urine WBC 0 SEEN, Ur Squamous Epith Cells 0-5 SEEN, Amorphous Sediment 2+, Urine Bacteria 0 SEEN, Urine Mucus 0 SEEN Micro: Microbiology 02/14/23 16:20 Nasal Secretion SARS-CoV-2 & FLU Antigen (Rapid) - Final Imagaing Radiology Impression Chest X-Ray 02/14/23 16:50 IMPRESSION: Moderate left pleural effusion unchanged Electronically Signed: Bharath Carrillo MD at 17:39 EST Reading Location ID and State: [address] [place] [address] Tel , Service support , Assessment & Plan Assessment/Plan (1) Pleural effusion, left: (2) Atrial fibrillation: PLAN: Plan Patient is an 83-year-old female who presented with [facility] ED on 02/14/2023with worsening shortness of breath with exertion. 1. Recurrent left-sided pleural effusion, acute hypoxia with history of COPD Unclear etiology of pleural effusions at this time. S/p thoracentesis on 01/25 with 1.5 L of fluid removed, repeat thoracentesis on 02/12 with 2 L of fluid removed. Chest x-ray on admit with moderate recurrent left-sided pleural effusion. Patient satting in mid 90s on 2 L nasal cannula in the ED. Fluid studies from thoracentesis on 01/25 show a transudative fluid but atypical epithelioid cells were noted. Appears that effusion was suspected to be secondary to heart failure in setting of poorly controlled A-fib with RVR. However, I would not expect a one-sided pleural effusion to recur this quickly if only secondary to heart failure. Have concern for an underlying malignancy given patient's known history of breast cancer. CT chest/abdomen/pelvis withoutcontrast admission showed a 14 mm sclerotic right acetabular lesion, with radiology recommendation that a bone scan could be helpful if metastatic diseaseis a concern; no other overt malignant findings. ? Admit under inpatient status to PCU. Pulmonology consulted. Orders placed for ultrasound-guided thoracentesis with radiology tomorrow with appropriate fluid studies. Wean supplemental oxygen as able. Continued home short acting inhaler as needed. 2. Paroxysmal atrial fibrillation with RVR Follows with cardiology, last office visit on 11/30/2022. Has longstanding history of paroxysmal A-fib. Failed cardioversion in 2019. Patient was also intolerant of amiodarone. Since then, patient has been successfully rate controlled per cardiology. Home medications appear to be Lopressor 100 daily, diltiazem 240 mg twice daily, Eliquis 2.5 twice daily. EKG on admit showed A-fib with heart rate in the 120s. Unclear if the A-fib with RVR could be causingvolume overload, or rather secondary to possible cardiac excitation due to volume overload. S/p IV diltiazem 10 mg x 1 dose in the ED with some improvement in her heart rate. ? Continue home Cardizem, Lopressor, Eliquis. IV Lopressor every 6 hours as needed ordered as well. Monitor telemetry. Low threshold to consult cardiology. 3. Debility Patient lives at home by herself, has previously been able to do all things around the house for self without significant issue. However, given her recurrent pleural effusions recently with worsening shortness of breath on exertion, she has had difficulty doing things around the home on her own. ? PT/OT/case management consulted. Chronic medical conditions: ? Hypertension, hyperlipidemia, CHF: Continue home diltiazem, Lopressor, statin,Entresto. Home diuretic regimen is unclear, will start p.o. Lasix 40 mg twice daily for now. ? Obesity: BMI 38 on admit. Encouraged lifestyle modifications. Complicates care and prognosis. ? CKD stage III: Creatinine 1.52 on admission, at baseline. Monitor BMP. ? Type 2 diabetes: Home medications of insulin degludec 40 units at night, glimepiride 1 mg daily. Last A1c of 6.9% in 09/2022. BG 96 on admit. Will start Lantus 25 units at night with sliding scale insulin for now, adjust regimen as needed. Repeat A1c ordered. ? Hypothyroidism: Most recent TSH of 2.92 on 10/15/2022. Repeat TSH ordered. Continue home Synthroid. ? Overactive bladder: Continue home Myrbetriq. ? S/p left knee replacement in 11/2022 ? Remote history of right-sided breast cancer s/p lumpectomy DVT prophylaxis: Eliquis CODE STATUS: Full code, verified Expected disposition: TBD Total clinical time spent by myself addressing the patient's medical issues, reviewing all the data, and collaborating with patient's care team: 55 minutes. 02/14/23 8412 <Electronically signed by Amaury Pena DO> Cosigner Signature (if applicable): CC: Dr. Amaury Pena, DO; Dr. Alexy Douglas MD~ Signed [facility] Work Phone: 1(744) 732-931311-30-2023 Discharge summary Author Daniel Briscoe [facility] February 14, 2023 6:03pm Note Date/Time February 14, 2023 4:19pm [facility] Medical Records Department [address] [place] [address] Emergency Department Summary 02/14/23 MR#: [id number] Acct: [id number] Name: TONJA SÁNCHEZ Rep #:[id number] : 1940 83 From: Daniel Briscoe MD PCP: Dr. Alexy Douglas MD Status:REG E R Location: ED HPI History of Present Illness Chief Complaint: Shortness of Breath Narrative Narrative: 83-year-old female past medical history of COPD, wears oxygen as needed, presents at the direction of [facility] because of increasing shortnessof breath that she had over the last few days. She relates history that she hasa left-sided pleural effusion. She has had thoracentesis twice in the last weekand a half. The first time they took off a liter and a half, and 2 days ago, she had reaccumulation and a thoracentesis where they drained 2 L off of her left lung. She has had increasing shortness of breath, and felt feverish and sweaty. She had increased difficulty breathing. She states that she has COPD, and sees a air valve mechanic, Dr. Greenwood, but does not have an appointment with him for the next few weeks. She is also on a water pill. She presents because ofthe shortness of breath and increasing difficulty breathing [facility] Medical History Actinic keratosis Atrial fibrillation Back pain BMI 39.0-39.9,adult Breast cancer Cancer Cardiology follow-up encounter Chronic anticoagulation Chronic diastolic (congestive) heart failure Chronic kidney disease, stage 3b CKD (chronic kidney disease) stage 3, GFR 30-59 ml/min COPD (chronic obstructive pulmonary disease) Diabetes mellitus Diastolic dysfunction Dietary restriction Disc degeneration, lumbar Erosion of bladder suspension mesh Essential (primary) hypertension Fatigue Former smoker High cholesterol History of atrial fibrillation History of CHF (congestive heart failure) History of echocardiogram History of edema History of pain when walking History of renal disease History of steroid therapy History of stress test Hyperlipidemia Hypersomnia Hypertension Hypertension Hypothyroidism Hypoxia Injury of back Insulin dependent diabetes mellitus Longstanding persistent atrial fibrillation Low iron Non-rheumatic tricuspid valve insufficiency Obesity Overactive bladder Restless legs Right hip pain Secondary pulmonary arterial hypertension Shortness of breath on exertion Skin cancer Skin cancer, basal cell Skin lesion Stage 2 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 SHAKIRA (stress urinary incontinence, female) Tobacco dependence in remission UTI (urinary tract infection) Wears dentures Wears glasses Home Medications cholecalciferol (vitamin D3) 325 mcg (13,000 unit) capsule 325 mcg PO DAILY supplement 06/14/21 [History Last Taken 10/08/21] potassium chloride 20 mEq tablet,extended release 20 meq PO DAILY supplement 06/14/21 [History Last Taken 10/08/21] apixaban 2.5 mg tablet (Eliquis) 2.5 mg PO DAILY blood thinner 10/09/21 [History Last Taken 10/08/21] glimepiride 1 mg tablet 1 mg PO DAILY blood sugar 10/09/21 [History Last Taken 10/08/21] acetaminophen 500 mg tablet 1,000 mg (2 x 500 mg) PO Q6H PRN PRN Pain Score 1- 10#0 tabs 10/24/21 [Rx Last Taken Unknown] metoprolol tartrate 100 mg tablet 100 mg PO DAILY 10/30/21 [History Last Taken Unknown] insulin degludec 100 unit/mL (3 mL) subcutaneous pen 40 unit subcut QHS blood sugar 01/29/22 [History Last Taken Unknown] levothyroxine 200 mcg tablet 200 mcg PO DAILY thyroid 01/29/22 [History Last Taken Unknown] ferrous sulfate 325 mg (65 mg iron) tablet (Feosol) 325 mg PO DAILY 04/04/22 [History Last Taken Unknown] sacubitril 24 mg-valsartan 26 mg tablet (Entresto) 1 tab PO BID #1 TAB 04/23/22 [Rx Last Taken Unknown] furosemide 40 mg tablet 40 mg PO DAILY #90 tabs 08/28/22 [Rx Last Taken Unknown] diltiazem HCl 240 mg capsule,extended release 24 hr 240 mg PO BID heart #180 caps 09/27/22 [Rx Last Taken Unknown] rosuvastatin 20 mg tablet 20 mg PO QHS cholesterol #30 tabs 10/08/22 [Rx Last Taken Unknown] albuterol sulfate 90 mcg/actuation aerosol inhaler 1 inh inhalation Q4H PRN COPD11/14/22 [History Last Taken Unknown] mirabegron 50 mg tablet,extended release 24 hr (Myrbetriq) 50 mg PO QHS 11/14/22[History Last Taken Unknown] bumetanide 2 mg tablet 2 mg PO DAILY 02/14/23 [History Last Taken Unknown] levothyroxine 50 mcg tablet 50 mcg PO DAILY 02/14/23 [History Last Taken Unknown] meloxicam 15 mg tablet 15 mg PO DAILY 02/14/23 [History Last Taken Unknown] Allergy/AdvReac Type Severity Reaction Status Date / Time Sulfa (Sulfonamide Allergy PEELING Verified 02/14/23 15:52 Antibiotics) RASH Family History Mother Colon cancer Cancer skin, bladder Daughter Cancer Thyroid Sister CAD (coronary artery disease) Surgical History History of cardioversion (03/20/19) History of excision of lesion History of hysterectomy History of left heart catheterization (05/31/14) History of partial mastectomy Hx of colonoscopy Hx of left cataract extraction Hx of local excision of skin lesion Hx of right cataract extraction Social History (Updated 02/14/23 @ 16:43 by Doris Fernandez) household members: none housing: house current occupational status: retired Smoking Status: Former smoker how long ago did patient quit smokin, 2p/day second hand exposure: Yes alcohol intake: current alcohol intake frequency: holidays/special occasions only substance use type: does not use ROS ROS ED ROS Narrative Constitutional: No fever, no chills. Positive diaphoresis/sweating. HEENT: No sore throat. No neck pain. No loss of vision. No rhinorrhea. Cardiovascular: No chest pain. No palpitations. No pedal edema. Respiratory: Occasional cough, positive shortness of breath. Abdominal: No abdominal pain. No nausea. No vomiting. Genitourinary: No dysuria. No hematuria. Musculoskeletal: No myalgias. No arthralgias. Neurologic: No headaches. No dizziness. No lightheadedness. Skin: No rash. No change in color. Psychiatric: No depression. No anxiety. EXAM Physical Exam Narrative Exam Narrative: Afebrile. Vital signs noted. HEENT: Normocephalic. Atraumatic. PERRL, EOMI. Neck soft and supple. No pointtenderness or step off. Cardiovascular: Irregularly irregular tachycardia no murmurs, rubs, or gallops appreciated. Respiratory: Positive tachypnea. Decreased breath sounds left base. Gastrointestinal: Abdomen soft, nontender, with normoactive bowel sounds. No rebound or guarding. Neurological: Awake. Alert. Nonfocal, nonlateralizing. Skin: No rash. Normal color. No pallor. Musculoskeletal: No pedal edema. Full range of motion extremities. Const Vital Signs: 02/14/23 15:52 02/14/23 16:42 02/14/23 16:50 Temperature 97.2 F L Temperature Source Temporal Pulse Rate 122 H 127 H Respiratory Rate 24 H 27 H Respiratory Effort Short of Breath Respiratory Pattern Tachypnea Blood Pressure 125/85 H Blood Pressure Mean 98 Pulse Ox 92 96 Oxygen Delivery Method Room Air Nasal Cannula Nasal Cannula Oxygen Flow Rate (L/min) 1 1 02/14/23 16:25 02/14/23 17:05 Temperature Temperature Source Pulse Rate 113 H Respiratory Rate Respiratory Effort Respiratory Pattern Blood Pressure Blood Pressure Mean Pulse Ox Oxygen Delivery Method Nasal Cannula Oxygen Flow Rate (L/min) 2 MDM MDM MDM Narrative Medical decision making narrative: Patient was reportedly hypoxic according to respiratory therapist. She was placed on nasal cannula oxygen. EKG was obtained which shows atrial fibrillation with rapid ventricular response at 121 bpm without ectopy or acute ST changes on my individual interpretation. She will be given diltiazem for rate control which she currently takes. In the differential diagnosis is pleural effusion versus COPD exacerbation versus CHF versus a combination of both. She may also have pneumonia or pneumothorax present as well from her recent thoracentesis. Chest x-ray will be obtained. I reviewed her laboratory work and she has a normal white count of 8.9, hemoglobin normal at 12.5, hematocrit 40.2, platelet count normal at 271. In review of her electrolyte panel, chloride is slightly elevated at 108 which I think is nonspecific BUN of 41 and creatinine of 1.52, but she has a history of chronic kidney disease. Glucose is appropriately elevated at 96, anion gap low at 4. High-sensitivity troponin is 21 with BNP slightly elevated in the 300s. Chest x-ray 1 view interpreted by myself independently does show reaccumulation of the fluid and a moderately sized left pleural effusion. She is requiring nasal cannula oxygen currently. Given her reaccumulation of pleural fluid, I discussed patient with Dr. Pena, the hospitalist, who will place the patient on observation and have a pulmonology consult. She is moderately rate controlled with her atrial fibrillation. Disposition is assigned to observationon the PCU. Patient is in stable condition. History & Record Review Discussion w/independent historian: Patient Additional record(s) reviewed:: Prior ED visit and Prior labs Lab Data Attestation: I reviewed the patient's lab results. Labs: Laboratory Results - last 24 hr 02/14/23 02/14/23 16:20 16:32 WBC 8.9 RBC 4.35 Hgb 12.5 Hct 40.2 MCV 92.4 MCH 28.7 MCHC 31.1 L RDW Std Deviation 48.3 H RDW Coeff of Sudha 14.3 Plt Count 271 MPV 10.4 Immature Gran % (Auto) 0.900 Neut % (Auto) 71.1 H Lymph % (Auto) 13.7 L Bath % (Auto) 10.8 H Eos % (Auto) 2.8 Baso % (Auto) 0.7 Absolute Neuts (auto) 6.3 Absolute Lymphs (auto) 1.22 Nucleated RBC % 0 Sodium 142 Potassium 4.0 Chloride 108 H Carbon Dioxide 30.0 Anion Gap 4 L BUN 41 H Creatinine 1.52 H Estim Creat Clear Calc 27.79 Est GFR (MDRD) Af Amer 42 L Est GFR (MDRD) Non-Af 35 L BUN/Creatinine Ratio 27.0 H Glucose 96 Lactic Acid 0.9 Calcium 8.6 Total Bilirubin 0.30 AST 12 L ALT 18 Alkaline Phosphatase 70 Troponin I High Sens 21 B-Natriuretic Peptide 354.0 H Total Protein 6.2 L Albumin 2.1 L Globulin 4.1 Albumin/Globulin Ratio 0.5 L Urine Color Yellow Urine Clarity Sl. Cloudy Urine pH 5.0 Ur Specific Francitas 1.020 Urine Protein 100 H Urine Glucose (UA) Normal Urine Ketones Negative Urine Occult Blood 10 H Urine Nitrite Negative Urine Bilirubin Negative Urine Urobilinogen 1 H Ur Leukocyte Esterase Negative Urine RBC 0 SEEN Urine WBC 0 SEEN Ur Squamous Epith Cells 0-5 SEEN Amorphous Sediment 2+ Urine Bacteria 0 SEEN Urine Mucus 0 SEEN Radiography Diagnostic Testing: Clinical Impression(s) from Imaging Studies Chest X-Ray 02/14/23 16:50 IMPRESSION: Moderate left pleural effusion unchanged Electronically Signed: Bharath Carrillo MD at 17:39 EST , Discharge Plan Dx/Rx/DC Orders Clinical Impression: HARDEN (dyspnea on exertion), Essential (primary) hypertension, Atrial fibrillation, Pleural effusion, left Disposition Disposition: Acute Care [facility] What to do if you have Problems For any increased pain, shortness of breath, bleeding, nausea or vomiting, chestpain, or any unexpected problems, contact your Primary Care Provider. Call [facility] ([phone]) or report to the closest Emergency Room. Call 911 if necessary. 02/14/231802 <Electronically signed by Daniel Briscoe MD> Cosigner Signature (if applicable): CC: Dr. Alexy Douglas MD ~ Signed [facility] Work Phone: [phone]) 918-726811-30-2023 Discharge summary Author Daniel Briscoe [facility] February 14, 2023 6:03pm Note Date/Time February 14, 2023 4:19pm [facility] Medical Records Department [address] [place] [id number] Emergency Department Summary 02/14/23 MR#: [id number] Acct: [id number] Name: TONJA SÁNCHEZ Rep #:[id number] : 1940 83 From: Daniel Briscoe MD PCP: Dr. Alexy Douglas MD Status:REG E R Location: ED HPI History of Present Illness Chief Complaint: Shortness of Breath Narrative Narrative: 83-year-old female past medical history of COPD, wears oxygen as needed, presents at the direction of [facility] because of increasing shortnessof breath that she had over the last few days. She relates history that she hasa left-sided pleural effusion. She has had thoracentesis twice in the last weekand a half. The first time they took off a liter and a half, and 2 days ago, she had reaccumulation and a thoracentesis where they drained 2 L off of her left lung. She has had increasing shortness of breath, and felt feverish and sweaty. She had increased difficulty breathing. She states that she has COPD, and sees a air valve mechanic, Dr. Greenwood, but does not have an appointment with him for the next few weeks. She is also on a water pill. She presents because ofthe shortness of breath and increasing difficulty breathing [facility] Medical History Actinic keratosis Atrial fibrillation Back pain BMI 39.0-39.9,adult Breast cancer Cancer Cardiology follow-up encounter Chronic anticoagulation Chronic diastolic (congestive) heart failure Chronic kidney disease, stage 3b CKD (chronic kidney disease) stage 3, GFR 30-59 ml/min COPD (chronic obstructive pulmonary disease) Diabetes mellitus Diastolic dysfunction Dietary restriction Disc degeneration, lumbar Erosion of bladder suspension mesh Essential (primary) hypertension Fatigue Former smoker High cholesterol History of atrial fibrillation History of CHF (congestive heart failure) History of echocardiogram History of edema History of pain when walking History of renal disease History of steroid therapy History of stress test Hyperlipidemia Hypersomnia Hypertension Hypertension Hypothyroidism Hypoxia Injury of back Insulin dependent diabetes mellitus Longstanding persistent atrial fibrillation Low iron Non-rheumatic tricuspid valve insufficiency Obesity Overactive bladder Restless legs Right hip pain Secondary pulmonary arterial hypertension Shortness of breath on exertion Skin cancer Skin cancer, basal cell Skin lesion Stage 2 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 SHAKIRA (stress urinary incontinence, female) Tobacco dependence in remission UTI (urinary tract infection) Wears dentures Wears glasses Home Medications cholecalciferol (vitamin D3) 325 mcg (13,000 unit) capsule 325 mcg PO DAILY supplement 06/14/21 [History Last Taken 10/08/21] potassium chloride 20 mEq tablet,extended release 20 meq PO DAILY supplement 06/14/21 [History Last Taken 10/08/21] apixaban 2.5 mg tablet (Eliquis) 2.5 mg PO DAILY blood thinner 10/09/21 [History Last Taken 10/08/21] glimepiride 1 mg tablet 1 mg PO DAILY blood sugar 10/09/21 [History Last Taken 10/08/21] acetaminophen 500 mg tablet 1,000 mg (2 x 500 mg) PO Q6H PRN PRN Pain Score 1- 10#0 tabs 10/24/21 [Rx Last Taken Unknown] metoprolol tartrate 100 mg tablet 100 mg PO DAILY 10/30/21 [History Last Taken Unknown] insulin degludec 100 unit/mL (3 mL) subcutaneous pen 40 unit subcut QHS blood sugar 01/29/22 [History Last Taken Unknown] levothyroxine 200 mcg tablet 200 mcg PO DAILY thyroid 01/29/22 [History Last Taken Unknown] ferrous sulfate 325 mg (65 mg iron) tablet (Feosol) 325 mg PO DAILY 04/04/22 [History Last Taken Unknown] sacubitril 24 mg-valsartan 26 mg tablet (Entresto) 1 tab PO BID #1 TAB 04/23/22 [Rx Last Taken Unknown] furosemide 40 mg tablet 40 mg PO DAILY #90 tabs 08/28/22 [Rx Last Taken Unknown] diltiazem HCl 240 mg capsule,extended release 24 hr 240 mg PO BID heart #180 caps 09/27/22 [Rx Last Taken Unknown] rosuvastatin 20 mg tablet 20 mg PO QHS cholesterol #30 tabs 10/08/22 [Rx Last Taken Unknown] albuterol sulfate 90 mcg/actuation aerosol inhaler 1 inh inhalation Q4H PRN COPD11/14/22 [History Last Taken Unknown] mirabegron 50 mg tablet,extended release 24 hr (Myrbetriq) 50 mg PO QHS 11/14/22[History Last Taken Unknown] bumetanide 2 mg tablet 2 mg PO DAILY 02/14/23 [History Last Taken Unknown] levothyroxine 50 mcg tablet 50 mcg PO DAILY 02/14/23 [History Last Taken Unknown] meloxicam 15 mg tablet 15 mg PO DAILY 02/14/23 [History Last Taken Unknown] Allergy/AdvReac Type Severity Reaction Status Date / Time Sulfa (Sulfonamide Allergy PEELING Verified 02/14/23 15:52 Antibiotics) RASH Family History Mother Colon cancer Cancer skin, bladder Daughter Cancer Thyroid Sister CAD (coronary artery disease) Surgical History History of cardioversion (03/20/19) History of excision of lesion History of hysterectomy History of left heart catheterization (05/31/14) History of partial mastectomy Hx of colonoscopy Hx of left cataract extraction Hx of local excision of skin lesion Hx of right cataract extraction Social History (Updated 02/14/23 @ 16:43 by Doris Fernandez) household members: none housing: house current occupational status: retired Smoking Status: Former smoker how long ago did patient quit smokin, 2p/day second hand exposure: Yes alcohol intake: current alcohol intake frequency: holidays/special occasions only substance use type: does not use ROS ROS ED ROS Narrative Constitutional: No fever, no chills. Positive diaphoresis/sweating. HEENT: No sore throat. No neck pain. No loss of vision. No rhinorrhea. Cardiovascular: No chest pain. No palpitations. No pedal edema. Respiratory: Occasional cough, positive shortness of breath. Abdominal: No abdominal pain. No nausea. No vomiting. Genitourinary: No dysuria. No hematuria. Musculoskeletal: No myalgias. No arthralgias. Neurologic: No headaches. No dizziness. No lightheadedness. Skin: No rash. No change in color. Psychiatric: No depression. No anxiety. EXAM Physical Exam Narrative Exam Narrative: Afebrile. Vital signs noted. HEENT: Normocephalic. Atraumatic. PERRL, EOMI. Neck soft and supple. No pointtenderness or step off. Cardiovascular: Irregularly irregular tachycardia no murmurs, rubs, or gallops appreciated. Respiratory: Positive tachypnea. Decreased breath sounds left base. Gastrointestinal: Abdomen soft, nontender, with normoactive bowel sounds. No rebound or guarding. Neurological: Awake. Alert. Nonfocal, nonlateralizing. Skin: No rash. Normal color. No pallor. Musculoskeletal: No pedal edema. Full range of motion extremities. Const Vital Signs: 02/14/23 15:52 02/14/23 16:42 02/14/23 16:50 Temperature 97.2 F L Temperature Source Temporal Pulse Rate 122 H 127 H Respiratory Rate 24 H 27 H Respiratory Effort Short of Breath Respiratory Pattern Tachypnea Blood Pressure 125/85 H Blood Pressure Mean 98 Pulse Ox 92 96 Oxygen Delivery Method Room Air Nasal Cannula Nasal Cannula Oxygen Flow Rate (L/min) 1 1 02/14/23 16:25 02/14/23 17:05 Temperature Temperature Source Pulse Rate 113 H Respiratory Rate Respiratory Effort Respiratory Pattern Blood Pressure Blood Pressure Mean Pulse Ox Oxygen Delivery Method Nasal Cannula Oxygen Flow Rate (L/min) 2 MDM MDM MDM Narrative Medical decision making narrative: Patient was reportedly hypoxic according to respiratory therapist. She was placed on nasal cannula oxygen. EKG was obtained which shows atrial fibrillation with rapid ventricular response at 121 bpm without ectopy or acute ST changes on my individual interpretation. She will be given diltiazem for rate control which she currently takes. In the differential diagnosis is pleural effusion versus COPD exacerbation versus CHF versus a combination of both. She may also have pneumonia or pneumothorax present as well from her recent thoracentesis. Chest x-ray will be obtained. I reviewed her laboratory work and she has a normal white count of 8.9, hemoglobin normal at 12.5, hematocrit 40.2, platelet count normal at 271. In review of her electrolyte panel, chloride is slightly elevated at 108 which I think is nonspecific BUN of 41 and creatinine of 1.52, but she has a history of chronic kidney disease. Glucose is appropriately elevated at 96, anion gap low at 4. High-sensitivity troponin is 21 with BNP slightly elevated in the 300s. Chest x-ray 1 view interpreted by myself independently does show reaccumulation of the fluid and a moderately sized left pleural effusion. She is requiring nasal cannula oxygen currently. Given her reaccumulation of pleural fluid, I discussed patient with Dr. Pena, the hospitalist, who will place the patient on observation and have a pulmonology consult. She is moderately rate controlled with her atrial fibrillation. Disposition is assigned to observationon the PCU. Patient is in stable condition. History & Record Review Discussion w/independent historian: Patient Additional record(s) reviewed:: Prior ED visit and Prior labs Lab Data Attestation: I reviewed the patient's lab results. Labs: Laboratory Results - last 24 hr 02/14/23 02/14/23 16:20 16:32 WBC 8.9 RBC 4.35 Hgb 12.5 Hct 40.2 MCV 92.4 MCH 28.7 MCHC 31.1 L RDW Std Deviation 48.3 H RDW Coeff of Sudha 14.3 Plt Count 271 MPV 10.4 Immature Gran % (Auto) 0.900 Neut % (Auto) 71.1 H Lymph % (Auto) 13.7 L Bath % (Auto) 10.8 H Eos % (Auto) 2.8 Baso % (Auto) 0.7 Absolute Neuts (auto) 6.3 Absolute Lymphs (auto) 1.22 Nucleated RBC % 0 Sodium 142 Potassium 4.0 Chloride 108 H Carbon Dioxide 30.0 Anion Gap 4 L BUN 41 H Creatinine 1.52 H Estim Creat Clear Calc 27.79 Est GFR (MDRD) Af Amer 42 L Est GFR (MDRD) Non-Af 35 L BUN/Creatinine Ratio 27.0 H Glucose 96 Lactic Acid 0.9 Calcium 8.6 Total Bilirubin 0.30 AST 12 L ALT 18 Alkaline Phosphatase 70 Troponin I High Sens 21 B-Natriuretic Peptide 354.0 H Total Protein 6.2 L Albumin 2.1 L Globulin 4.1 Albumin/Globulin Ratio 0.5 L Urine Color Yellow Urine Clarity Sl. Cloudy Urine pH 5.0 Ur Specific [place] 1.020 Urine Protein 100 H Urine Glucose (UA) Normal Urine Ketones Negative Urine Occult Blood 10 H Urine Nitrite Negative Urine Bilirubin Negative Urine Urobilinogen 1 H Ur Leukocyte Esterase Negative Urine RBC 0 SEEN Urine WBC 0 SEEN Ur Squamous Epith Cells 0-5 SEEN Amorphous Sediment 2+ Urine Bacteria 0 SEEN Urine Mucus 0 SEEN Radiography Diagnostic Testing: Clinical Impression(s) from Imaging Studies Chest X-Ray 02/14/23 16:50 IMPRESSION: Moderate left pleural effusion unchanged Electronically Signed: Bharath Carrillo MD at 17:39 EST Reading Location ID and State: [address] [place] [address] Tel , Service support , Discharge Plan Dx/Rx/DC Orders Clinical Impression: HARDEN (dyspnea on exertion), Essential (primary) hypertension, Atrial fibrillation, Pleural effusion, left Disposition Disposition: Acute Care Hospital [facility] What to do if you have Problems For any increased pain, shortness of breath, bleeding, nausea or vomiting, chestpain, or any unexpected problems, contact your Primary Care Provider. Call [facility] ([phone]) or report to the closest Emergency Room. Call 911 if necessary. 02/14/23 1803 <Electronically signed by Daniel Briscoe MD> Cosigner Signature (if applicable): CC: Dr. Alexy Douglas MD ~ Signed [facility] Work Phone: [phone] Hospital Discharge instructions Additional Instructions DISCHARGE INSTRUCTIONS PLEASE READ *Please take this with you to your next doctors appointment* -Please follow-up with Dr. Greenwood upon discharge. Please call their office upon discharge to inquire about your hospital follow-up appointment time as it appears you have an appointment with Dr. Greenwood 05/13/2022. -Please follow-up with with your apartment locator upon discharge. Please call their office to schedule hospital follow-up appointment upon discharge. -For your kidneys and your heart and it is advised that you stop your meloxicam -Would recommend lab work (BMP) to check your kidney function in 2 to 3 days through your primary care physician's office. Please call their office upon discharge to obtain order for lab work. -Due to your glucose being well controlled on lower doses of diabetes medicines you will be discharged on 30 units of long-acting insulin at bedtime and would recommend holding her glimepiride. Please continue to monitor glucose as there requirement may go up once you are back in her home environment -Weigh yourself every day. A sudden weight gain can mean you are retaining fluid. Weigh yourself at the same time of day and in the same kind of clothes. Ideally, weigh yourself first thing in the morning after you empty your bladder, but before you eat breakfast. -Please call your physician if your weight goes up by more than 2 pounds in 1 day or 5 pounds in 1 week. This can be a sign that you are retaining more fluid than you should be. Clues to weight gain include checking your ankles for swelling, or noticing you are short of breath when you lie down -Please limit your sodium intake to less than 3 g/day. Here are tips: Limit canned, dried, packaged, and fast foods. Don't add salt to your food at the table. Season foods with herbs instead of salt when you cook. When you eat out, ask that the printing supervisor not add any salt to your dish. Don't eat fried or greasy foods. Be careful of bottled beverages. They can contain a lot of salt -Call 911 right away if you have: -Severe shortness of breath, such that you can't catch your breath even while resting -Severe chest pain that does not resolve with rest or nitroglycerin -[place], foamy mucus with cough and shortness of breath -An ongoing rapid or irregular heartbeat -Passing out or fainting -Stroke symptoms such as sudden numbness or weakness on one side of your face, arm, or leg or sudden confusion, trouble speaking or vision changes -Please call your primary care provider's office upon discharge to schedule a hospital follow up within 1 week. -For any concerning signs or symptoms please call 911 or proceed to the [facility] Work Phone: Discharge summary Author Christina Menard [facility] February 16, 2023 3:04pm Note Date/Time February 16, 2023 3 :04pm [facility] Medical Records Department [facility] [place] [address] Instructions for Home/Discharge Instructions 02/16/23 1459 MR#: [id number] Acct: [id number] Name: TONJA SÁNCHEZ Rep #:[id number] : 1940 83 From: Christina Menard MD PCP: Dr. Alexy Douglas MD Status:ADM I N Discharge Instructions Diet Discharge Diet: - (-DASH diet, 3000 mg sodium restriction, 2 L fluid restriction) Activity Discharge Activity: - (Increase activity as tolerated) Follow Up Care Test Results: Test results from this visit will be discussed in further detail at your follow- up appointment, if applicable. Discharge Plan Admission Admit Date/Time: 02/15/23 16:16 Primary Reason for Your Visit: Pleural effusion Attending Provider: Christina Menard Primary Care Provider: Alexy Douglas Chi Consulting Providers: Amaury Pena; Bradley Morel; Edgardo Greenwood; Tobin Medel; Ricky Clayton; Bessy Galan REGULATORY AFFAIRS ASSISTANT Instructions Patient Instructions: ED Pleural Effusion Additional Instructions / Restrictions: DISCHARGE INSTRUCTIONS PLEASE READ *Please take this with you to your next doctors appointment* -Please follow-up with Dr. Greenwood upon discharge. Please call their office upon discharge to inquire about your hospital follow-up appointment time as it appears you have an appointment with Dr. Greenwood 05/13/2022. -Please follow-up with with your apartment locator upon discharge. Please call theiroffice to schedule hospital follow-up appointment upon discharge. -For your kidneys and your heart and it is advised that you stop your meloxicam -Would recommend lab work (BMP) to check your kidney function in 2 to 3 days through your primary care physician's office. Please call their office upon discharge to obtain order for lab work. -Due to your glucose being well controlled on lower doses of diabetes medicines you will be discharged on 30 units of long-acting insulin at bedtime and would recommend holding her glimepiride. Please continue to monitor glucose as there requirement may go up once you are back in her home environment -Weigh yourself every day. A sudden weight gain can mean you are retaining fluid. Weigh yourself at the same time of day and in the same kind of clothes. Ideally, weigh yourself first thing in the morning after you empty your bladder,but before you eat breakfast. -Please call your physician if your weight goes up by more than 2 pounds in 1 day or 5 pounds in 1 week. This can be a sign that you are retaining more fluid than you should be. Clues to weight gain include checking your ankles for swelling, or noticing you are short of breath when you lie down -Please limit your sodium intake to less than 3 g/day. Here are tips: Limit canned, dried, packaged, and fast foods. Don't add salt to your food at the table. Season foods with herbs instead of salt when you cook. When you eat out, ask that the printing supervisor not add any salt to your dish. Don't eat fried or greasy foods. Be careful of bottled beverages. They can contain a lot of salt -Call 911 right away if you have: -Severe shortness of breath, such that you can't catch your breath even while resting -Severe chest pain that does not resolve with rest or nitroglycerin -[place], foamy mucus with cough and shortness of breath -An ongoing rapid or irregular heartbeat -Passing out or fainting -Stroke symptoms such as sudden numbness or weakness on one side of your face, arm, or leg or sudden confusion, trouble speaking or vision changes -Please call your primary care provider's office upon discharge to schedule a hospital follow up within 1 week. -For any concerning signs or symptoms please call 911 or proceed to the nearest emergency department Discharge Orders/Prescriptions Prescriptions: Continued levothyroxine 200 mcg tablet 200 mcg PO DAILY cholecalciferol (vitamin D3) 325 mcg (13,000 unit) capsule 325 mcg PO DAILY potassium chloride 20 mEq tablet extended release 20 meq PO DAILY metoprolol tartrate 100 mg tablet 100 mg PO DAILY ferrous sulfate [Feosol] 325 mg (65 mg iron) tablet 325 mg PO DAILY Eliquis 2.5 mg tablet 2.5 mg PO DAILY acetaminophen 500 mg Tablet 1,000 mg PO Q6H PRN PRN (Reason: Pain Score 1-10) Qty: 0 0RF Myrbetriq 50 mg tablet extended release 24 hr 50 mg PO QHS albuterol sulfate 90 mcg/actuation HFA aerosol inhaler 1 inh INHALATION Q4H PRN (Reason: COPD) Patient Comments: Inhale 2 puffs by mouth every 4 hours. bumetanide 2 mg tablet 2 mg PO DAILY Patient Comments: TAKE 1 TABLET BY MOUTH EVERY DAY levothyroxine 50 mcg tablet 50 mcg PO DAILY Patient Comments: TAKE 1 TABLET BY MOUTH DAILY Entresto 24-26 mg tablet 1 tab PO BID Qty: 1 0RF furosemide 40 mg tablet 40 mg PO DAILY Qty: 90 3RF diltiazem HCl 240 mg capsule,extended release 24hr 240 mg PO BID Qty: 180 3RF rosuvastatin 20 mg tablet 20 mg PO QHS Qty: 30 11RF Hold Instructions: Home Medication placed on hold at Doctor's office Changed insulin degludec 100 unit/mL (3 mL) insulin pen 30 unit SC QHS Qty: 15 0RF Discontinued glimepiride 1 MG tablet 1 mg PO DAILY meloxicam 15 mg tablet 15 mg PO DAILY Patient Comments: TAKE 1 TABLET BY MOUTH EVERY DAY Referrals / Follow Up: Roosevelt Tesfaye MD [Med Staff - Active Staff] - Edgardo Greenwood DO [Med Staff - Active Staff] - (Will be very important to follow- up with pulmonary medicine upon discharge, please call to inquire about your hospital follow up appointment) Alexy Douglas Chi, MD [Primary Care Provider] - Within 1 Week Disposition Disposition (needs filled in before D/C Order can be placed): Home, Self Care 02/16/23 5524<Electronically signed by Christina Menard MD>Christina Menard MD CC: WILDER Galan; Dr. Amaury Pena DO; Dr. Bradley Morel MD; Dr. Edgardo Greenwood DO; Dr. Tobin Medel MD; Dr. Alexy Douglas MD; Dr. Ricky Clayton MD ~ Signed [facility] Work Phone: Evaluation + Plan note Future Appointments [facility] evaluation + Plan note Future Appointments Appointment Date:07/22/2023 08:30:00 AM Scheduled Provider:LITA GARZA Location:[facility] Appointment Type:Telephone Appointment Date:08/01/2023 10:30:00 AM Scheduled Provider:LITA GARZA Location:[facility] Appointment Type:[facility] Post Op Future Scheduled Tests Radiology* XR Chest 2 Views (PA & Lateral) 08/01/23 [facility] evaluation note* Diagnosis Onset Date Resolution Status Actinic keratosis acute Skin lesion acute Skin cancer acute Skin lesion acute Skin cancer, basal cell acut e Skin cancer, basal cell acut e Chronic diastolic (congestive) heart failure chronic Essential (primary) hypertension chronic Longstanding persistent atrial fibrillation [facility] Work Phone: Evaluation note* Diagnosis Onset Date Resolution Status Skin lesion acute Skin cancer, basal cell acut e Skin cancer, basal cell acut e Chronic diastolic (congestive) heart failure chronic Essential (primary) hypertension chronic Longstanding persistent atrial fibrillation chronic HARDEN (dyspnea on exertion) ac [place] Chronic diastolic (congestive) heart failure chronic Essential (primary) hypertension chronic Longstanding persistent atrial fibrillation [facility] Work Phone: Evaluation note* Diagnosis Onset Date Resolution Status Chronic diastolic (congestive) heart failure chronic Essential (primary) hypertension chronic Longstanding persistent atrial fibrillation chronic HARDEN (dyspnea on exertion) ac [place] Chronic diastolic (congestive) heart failure chronic Essential (primary) hypertension chronic Longstanding persistent atrial fibrillation [facility] Work Phone: Evaluation note* Diagnosis Onset Date Resolution Status Chronic diastolic (congestive) heart failure chronic Essential (primary) hypertension chronic Longstanding persistent atrial fibrillation chronic HARDEN (dyspnea on exertion) ac [place] Chronic diastolic (congestive) heart failure chronic Essential (primary) hypertension chronic Longstanding persistent atrial fibrillation chronic Atrial fibrillation with RVR acute Chronic anticoagulation acut e LLL pneumonia acute Sepsis acute Chronic diastolic (congestive) heart failure chronic CKD (chronic kidney disease) stage 3, GFR 30-59 ml/min chronic [facility] Work Phone: Evaluation note* Diagnosis Onset Date Resolution Status Essential (primary) hypertension chronic Longstanding persistent atrial fibrillation chronic HARDEN (dyspnea on exertion) re solved Atrial fibrillation with RVR resolved HARDEN (dyspnea on exertion) re solved LLL pneumonia resolved Acute respiratory failure with hypoxia acute Chronic kidney disease, stage 3b acute Debility acute Diabetes mellitus acute Hyperlipidemia acute Hypothyroidism acute Overactive bladder acute Acute on chronic diastolic congestive heart failure chronic Hypertension chronic Atrial fibrillation with RVR resolved LLL pneumonia resolved [facility] Work Phone: Evaluation note* Diagnosis Onset Date Resolution Status Essential (primary) hypertension chronic HARDEN (dyspnea on exertion) re solved Atrial fibrillation with RVR resolved HARDEN (dyspnea on exertion) re solved LLL pneumonia resolved Acute on chronic diastolic congestive heart failure resolved Acute respiratory failure with hypoxia resolved Atrial fibrillation with RVR resolved Debility resolved LLL pneumonia resolved Fatigue acute Essential (primary) hypertension chronic HARDEN (dyspnea on exertion) re solved [facility] Work Phone: Evaluation note* Diagnosis Onset Date Resolution Status Atrial fibrillation with RVR resolved HARDEN (dyspnea on exertion) re solved LLL pneumonia resolved Acute on chronic diastolic congestive heart failure resolved Acute respiratory failure with hypoxia resolved Atrial fibrillation with RVR resolved Debility resolved LLL pneumonia resolved Fatigue acute Essential (primary) hypertension chronic HARDEN (dyspnea on exertion) re solved [facility] Work Phone: Evaluation note* Diagnosis Onset Date Resolution Status Acute on chronic diastolic congestive heart failure resolved Acute respiratory failure with hypoxia resolved Atrial fibrillation with RVR resolved Debility resolved LLL pneumonia resolved Fatigue acute Essential (primary) hypertension chronic HARDEN (dyspnea on exertion) re solved Essential (primary) hypertension chronic [facility] Work Phone: Evaluation note* Diagnosis Onset Date Resolution Status Essential (primary) hypertension chronic [facility] Work Phone: Evaluation note* Diagnosis Onset Date Resolution Status Essential (primary) hypertension chronic Chest pain acute HARDEN (dyspnea on exertion) ac [place] Essential (primary) hypertension chronic [facility] Work Phone: evaluation note* Diagnosis Onset Date Resolution Status Chest pain acute HARDEN (dyspnea on exertion) [place] Essential (primary) hypertension [facility] Work Phone: evaluation note* Diagnosis Onset Date Resolution Status Essential (primary) hypertension chronic Essential (primary) hypertension [facility] Work Phone: evaluation note* Diagnosis Onset Date Resolution Status Essential (primary) hypertension chronic Pleural effusion, left acute [facility] Work Phone: evaluation note* Diagnosis Onset Date Resolution Status Essential (primary) hypertension chronic Pleural effusion, left acute Atrial fibrillation acute HARDEN (dyspnea on exertion) [place] Pleural effusion, left acute Essential (primary) hypertension [facility] Work Phone: evaluation note* Diagnosis Onset Date Resolution Status Essential (primary) hypertension chronic Pleural effusion, left acute Atrial fibrillation acute HARDEN (dyspnea on exertion) [place] Pleural effusion, left acute Essential (primary) hypertension chronic Pleural effusion, left acute Pleural effusion, left acute [facility] Work Phone: evaluation note* Diagnosis Onset Date Resolution Status Pleural effusion, left acute Atrial fibrillation acute HARDEN (dyspnea on exertion) [place] Pleural effusion, left acute Essential (primary) hypertension chronic Pleural effusion, left acute Pleural effusion, left acute HARDEN (dyspnea on exertion) [place] Pleural effusion, left acute Essential (primary) hypertension chronic Pleural effusion, left acute [facility] Work Phone: Evaluation note* Diagnosis Onset Date Resolution Status Pleural effusion, left acute Atrial fibrillation acute HARDEN (dyspnea on exertion) [place] Pleural effusion, left acute Essential (primary) hypertension chronic Pleural effusion, left acute Pleural effusion, left acute HARDEN (dyspnea on exertion) [place] Pleural effusion, left acute Essential (primary) hypertension chronic Pleural effusion, left acute HARDEN (dyspnea on exertion) [place] Pleural effusion, left acute Essential (primary) hypertension [facility] Work Phone: evaluation note* Diagnosis Onset Date Resolution Status Pleural effusion, left chron ic Atrial fibrillation acute HARDEN (dyspnea on exertion) [place] Essential (primary) hypertension chronic Pleural effusion, left chron ic Pleural effusion, left chron ic Pleural effusion, left chron ic HARDEN (dyspnea on exertion) [place] Essential (primary) hypertension chronic Pleural effusion, left chron ic Pleural effusion, left chron ic HARDEN (dyspnea on exertion) [place] Essential (primary) hypertension chronic Pleural effusion, left chron ic Pleural effusion, left chron ic Pleural effusion, left chron ic [facility] Work Phone: Evaluation note* Diagnosis Onset Date Resolution Status Pleural effusion, left chron ic Atrial fibrillation acute HARDEN (dyspnea on exertion) [place] Essential (primary) hypertension chronic Pleural effusion, left chron ic Pleural effusion, left chron ic Pleural effusion, left chron ic HARDEN (dyspnea on exertion) [place] Essential (primary) hypertension chronic Pleural effusion, left chron ic Pleural effusion, left chron ic HARDEN (dyspnea on exertion) [place] Essential (primary) hypertension chronic Pleural effusion, left chron ic Pleural effusion, left chron ic Pleural effusion, left chron ic Pleural effusion, left chron ic HARDEN (dyspnea on exertion) [place] Essential (primary) hypertension chronic Pleural effusion, left chron ic [facility] Work Phone: Evaluation note* Diagnosis Onset Date Resolution Status Pleural effusion, left chron ic Atrial fibrillation acute HARDEN (dyspnea on exertion) [place] Essential (primary) hypertension chronic Pleural effusion, left chron ic Pleural effusion, left chron ic Pleural effusion, left chron ic HARDEN (dyspnea on exertion) [place] Essential (primary) hypertension chronic Pleural effusion, left chron ic Pleural effusion, left chron ic HARDEN (dyspnea on exertion) [place] Essential (primary) hypertension chronic Pleural effusion, left chron ic Pleural effusion, left chron ic Pleural effusion, left chron ic Pleural effusion, left chron ic HARDEN (dyspnea on exertion) [place] Essential (primary) hypertension chronic Pleural effusion, left chron ic Pleural effusion, left chron ic [facility] Work Phone: Evaluation note* Diagnosis Onset Date Resolution Status Pleural effusion, left chron ic Atrial fibrillation acute HARDEN (dyspnea on exertion) [place] Essential (primary) hypertension chronic Pleural effusion, left chron ic Pleural effusion, left chron ic Pleural effusion, left chron ic HARDEN (dyspnea on exertion) [place] Essential (primary) hypertension chronic Pleural effusion, left chron ic Pleural effusion, left chron ic HARDEN (dyspnea on exertion) [place] Essential (primary) hypertension chronic Pleural effusion, left chron ic Pleural effusion, left chron ic Pleural effusion, left chron ic Pleural effusion, left chron ic HARDEN (dyspnea on exertion) [place] Essential (primary) hypertension chronic Pleural effusion, left chron ic Pleural effusion, left chron ic Pleural effusion, left chron ic [facility] Work Phone: Evaluation note* Diagnosis Onset Date Resolution Status Atrial fibrillation acute HARDEN (dyspnea on exertion) [place] Essential (primary) hypertension chronic Pleural effusion, left chron ic Pleural effusion, left chron ic Pleural effusion, left chron ic HARDEN (dyspnea on exertion) [place] Essential (primary) hypertension chronic Pleural effusion, left chron ic Pleural effusion, left chron ic HARDEN (dyspnea on exertion) [place] Essential (primary) hypertension chronic Pleural effusion, left chron ic Pleural effusion, left chron ic Pleural effusion, left chron ic Pleural effusion, left chron ic HARDEN (dyspnea on exertion) [place] Essential (primary) hypertension chronic Pleural effusion, left chron ic Pleural effusion, left chron ic Pleural effusion, left chron ic Pleural effusion, left chron ic [facility] Work Phone: Evaluation note* Diagnosis Onset Date Resolution Status Atrial fibrillation acute HARDEN (dyspnea on exertion) [place] Essential (primary) hypertension chronic Pleural effusion, left chron ic Pleural effusion, left chron ic Pleural effusion, left chron ic HARDEN (dyspnea on exertion) [place] Chronic diastolic (congestive) heart failure chronic Essential (primary) hypertension chronic Pleural effusion, left chron ic Pleural effusion, left chron ic HARDEN (dyspnea on exertion) [place] Chronic diastolic (congestive) heart failure chronic Essential (primary) hypertension chronic Pleural effusion, left chron ic Pleural effusion, left chron ic Pleural effusion, left chron ic Pleural effusion, left chron ic HARDEN (dyspnea on exertion) [place] Chronic diastolic (congestive) heart failure chronic Essential (primary) hypertension chronic Pleural effusion, left chron ic Pleural effusion, left chron ic Pleural effusion, left chron ic Pleural effusion, left chron ic Chronic diastolic (congestive) heart failure chronic Pleural effusion, left chron ic 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 Pleural effusion, left chron ic HARDEN (dyspnea on exertion) [place] Chronic diastolic (congestive) heart failure chronic Essential (primary) hypertension chronic Pleural effusion, left chron ic [facility] Work Phone: Evaluation note* Diagnosis Onset Date Resolution Status Pleural effusion, left chron ic Pleural effusion, left chron ic HARDEN (dyspnea on exertion) [place] Chronic diastolic (congestive) heart failure chronic Essential (primary) hypertension chronic Longstanding persistent atrial fibrillation chronic Pleural effusion, left chron ic Pleural effusion, left chron ic HARDEN (dyspnea on exertion) [place] Chronic diastolic (congestive) heart failure chronic Essential (primary) hypertension chronic Longstanding persistent atrial fibrillation chronic Pleural effusion, left chron ic Pleural effusion, left chron ic Pleural effusion, left chron ic Pleural effusion, left chron ic HARDEN (dyspnea on exertion) [place] Chronic diastolic (congestive) heart failure chronic Essential (primary) hypertension chronic Longstanding persistent atrial fibrillation chronic Pleural effusion, left chron ic Pleural effusion, left chron ic Pleural effusion, left chron ic Pleural effusion, left chron ic Chronic diastolic (congestive) heart failure chronic Pleural effusion, left chron ic 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 Pleural effusion, left chron ic Chronic diastolic (congestive) heart failure chronic Essential (primary) hypertension chronic Longstanding persistent atrial fibrillation chronic Pleural effusion, left chron ic Pleural effusion, left chron ic [facility] Work Phone: Evaluation note* Diagnosis Onset Date Resolution Status Pleural effusion, left chron ic HARDEN (dyspnea on exertion) [place] Chronic diastolic (congestive) heart failure chronic Essential (primary) hypertension chronic Longstanding persistent atrial fibrillation chronic Pleural effusion, left chron ic Pleural effusion, left chron ic HARDEN (dyspnea on exertion) [place] Chronic diastolic (congestive) heart failure chronic Essential (primary) hypertension chronic Longstanding persistent atrial fibrillation chronic Pleural effusion, left chron ic Pleural effusion, left chron ic Pleural effusion, left chron ic Pleural effusion, left chron ic HARDEN (dyspnea on exertion) [place] Chronic diastolic (congestive) heart failure chronic Essential (primary) hypertension chronic Longstanding persistent atrial fibrillation chronic Pleural effusion, left chron ic Pleural effusion, left chron ic Pleural effusion, left chron ic Pleural effusion, left chron ic Chronic diastolic (congestive) heart failure chronic Pleural effusion, left chron ic 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 Pleural effusion, left chron ic Chronic diastolic (congestive) heart failure chronic Essential (primary) hypertension chronic Longstanding persistent atrial fibrillation chronic Pleural effusion, left chron ic Pleural effusion, left chron ic [facility] Work Phone: Hospital course Narrative No data available for this section [facility] Hospital Discharge instructions No data available for this section [facility] Progress note No data available for this section [facility] Summary Purpose Family History No Family History Records Found Relationship Condition Age at Onset Recorded Date/T kike mother Malignant neoplasm of colon Unknown Malignant neoplasm Unknown daughter Malignant neoplasm Unknown sister Coronary artery disease Unknown Advance Directives No Advanced Directives Records Found Advance Directive Response Recorded Date/ Time Advance Directives Yes March 20, 2019 12:38pm Living Will Yes March 21 0 11:23am Power of Bike Assembler Yes March 21 11:23am Advance Directive Response Recorded Date/ Time Name of Medical Power of Bike Assembler Jaquelin October 09, 2021 2:58pm Advance Directives Yes March 20, 2019 12:38pm Living Will Yes October 09, 2021 2:58pm Power of Bike Assembler Yes October 09 2:58pm Advance Directive Response Recorded Date/ Time Name of Medical Power of Bike Assembler Jaquelin October 09, 2021 2:58pm Name of Medical Power of Bike Assembler Jaquelin Belong e October 16, 2021 12:04pm Advance Directives Yes March 20, 2019 12:38pm Living Will Yes October 16, 2021 12:04pm Power of Bike Assembler Yes October 16 12:04pm Advance Directive Response Recorded Date/ Time Name of Medical Power of Bike Assembler Jaquelin October 09, 2021 2:58pm Name of Medical Power of Bike Assembler Jaquelin Belong e October 16, 2021 12:04pm Name of Medical Power of Bike Assembler Jaquelin December 20, 2021 2:18pm Advance Directives Yes March 20, 2019 12:38pm Living Will Yes December 20 2:18pm Power of Bike Assembler Yes December 20 2:18pm Advance Directive Response Recorded Date/ Time Name of Medical Power of Bike Assembler Jaquelin October 09, 2021 1:58pm Name of Medical Power of Bike Assembler Jaquelin Belong e October 16, 2021 11:04am Name of Medical Power of Bike Assembler Jaquelin December 20, 2021 1:18pm Advance Directives Yes March 20, 2019 11:38am Living Will Yes October 5th, 202 2 1:18pm Power of Bike Assembler Yes December 20, 2 022 1:18pm Advance Directive Response Recorded Date/ Time Name of Medical Power of Bike Assembler Jaquelin Belong e October 16, 2021 11:04am Name of Medical Power of Bike Assembler Jaquelin December 20, 2021 1:18pm Advance Directives Yes March 20, 2019 11:38am Living Will Yes December 20 2 1:18pm Power of Bike Assembler Yes December 20, 2 022 1:18pm Advance Directive Response Recorded Date/ Time Name of Medical Power of Bike Assembler Jaquelin December 20, 2021 1:18pm Advance Directives Yes March 20, 2019 11:38am Living Will Yes December 20 1:18pm Power of Bike Assembler Yes December 20, 022 1:18pm Advance Directive Response Recorded Date/ Time Advance Directives Yes March 20, 2019 11:38am Living Will Yes December 20 1:18pm Power of Bike Assembler Yes December 20 2 022 1:18pm Advance Directive Response Recorded Date/ Time Advance Directives Yes March 20, 2019 12:38pm Living Will Yes December 20 2:18pm Power of Bike Assembler Yes December 20, 022 2:18pm Advance Directive Response Recorded Date/ Time Advance Directives Yes March 20, 2019 12:38pm Living Will Yes November 14 3 11:02am Power of Bike Assembler Yes November 14, 2 023 11:02am Advance Directive Response Recorded Date/ Time Name of Medical Power of Bike Assembler DAUGHTER/STEP SON November 14, 2022 11:02am Advance Directives Yes March 20, 2019 12:38pm Living Will Yes November 14 3 11:02am Power of Bike Assembler Yes November 14, 2 023 11:02am Advance Directive Response Recorded Date/ Time Name of Medical Power of Bike Assembler DAUGHTER/STEP SON November 14, 2022 10:02am Advance Directives Yes March 20, 2019 11:38am Living Will Yes November 14 3 10:02am Power of Bike Assembler Yes November 14, 2 023 10:02am Advance Directive Response Recorded Date/ Time Name of Medical Power of Bike Assembler DAUGHTER/STEP SON November 14, 2022 10:02am Name of Medical Power of Bike Assembler Jaquelin- [facility] February 14, 2023 4:43pm Advance Directives Yes March 20, 2019 11:38am Living Will Yes February 14, 2 023 4:43pm Power of Bike Assembler Yes February 14, 2023 4:43pm Advance Directive Response Recorded Date/ Time Name of Medical Power of Bike Assembler DAUGHTER/STEP SON November 14, 2022 10:02am Name of Medical Power of Bike Assembler Jaquelin- [facility] February 14, 2023 7:57pm Advance Directives Yes March 20, 2019 11:38am Living Will Yes February 14, 2 023 7:57pm Power of Bike Assembler Yes February 14, 2023 7:57pm Advance Directive Response Recorded Date/ Time Name of Medical Power of Bike Assembler Jaquelin- dg February 14, 2023 7:57pm Advance Directives Yes March 20, 2019 11:38am Living Will Yes February 14, 2 023 7:57pm Power of Bike Assembler Yes February 14, 2023 7:57pm Advance Directive Response Recorded Date/ Time Name of Medical Power of Bike Assembler Jaquelin- [facility] February 14, 2023 8:57pm Advance Directives Yes March 20, 2019 12:38pm Living Will Yes February 14, 2 023 8:57pm Power of Bike Assembler Yes February 14, 2023 8:57pm Advance Directive Response Recorded Date/ Time Advance Directives Yes March 20, 2019 12:38pm Living Will Yes February 14, 2 023 8:57pm Power of Bike Assembler Yes February 14, 2023 8:57pm Advance Directive Response Recorded Date/ Time Living Will Yes December 02, 2023 6:20pm Do you have a Healthcare Pow er of Bike Assembler? Yes December 02, 2023 6:20pm Living Will No March 16, 2 024 5:56pm Do you have a Healthcare Pow er of Bike Assembler? No March 16, 2024 5:56pm Living Will Yes April 05 2:50pm Do you have a Healthcare Pow er of Bike Assembler? Yes April 05, 2024 2:50pm Name of Medical Power of Bike Assembler Jaquelin [facility] er April 05, 2024 2:50pm Living Will Yes April 26 1:25am Do you have a Healthcare Pow er of Bike Assembler? Yes April 26, 2024 1:25am Name of Medical Power of Bike Assembler michelle libertad April 26, 2024 1:25am Advance Directives on File No June 29, 2024 7:14am Living Will Yes June 29, 2024 7:14am Do you have a Healthcare Pow er of Bike Assembler? Yes June 29, 2024 7:14am Name of Medical Power of Bike Assembler Jaquelin (daugh ter) June 29, 2024 7:14am Advance Directives Yes June 29 025 7:14am Advance Directive Response Recorded Date/ Time Living Will Yes December 02, 2023 6:20pm Do you have a Healthcare Pow er of Bike Assembler? Yes December 02, 2023 6:20pm Living Will Yes April 05 2:50pm Do you have a Healthcare Pow er of Bike Assembler? Yes April 05, 2024 2:50pm Name of Medical Power of Bike Assembler [facility] April 05, 2024 2:50pm Living Will Yes April 26 1:25am Do you have a Healthcare Pow er of Bike Assembler? Yes April 26, 2024 1:25am Name of Medical Power of Bike Assembler michelle maurer April 26, 2024 1:25am Living Will Yes July 06, 2024 8:29pm Do you have a Healthcare Pow er of Bike Assembler? Yes July 07, 2024 4:00pm Name of Medical Power of Bike Assembler Jaquelin,[facility] er July 06, 2024 8:29pm Advance Directives on File No June 29, 2024 7:14am Living Will Yes June 29, 2024 7:14am Do you have a Healthcare Pow er of Bike Assembler? Yes June 29, 2024 7:14am Name of Medical Power of Bike Assembler Jaquelin (daugh ter) June 29, 2024 7:14am Advance Directives Yes June 29 025 7:14am Advance Directive Response Recorded Date/ Time Living Will Yes April 26 1:25am Do you have a Healthcare Pow er of Bike Assembler? Yes April 26, 2024 1:25am Name of Medical Power of Bike Assembler michelleseb maurer April 26, 2024 1:25am Living Will Yes Kim 21st, 2025 8:29pm Do you have a Healthcare Pow er of Bike Assembler? Yes July 07, 2024 4:00pm Name of Medical Power of Bike Assembler Lisa Hammer er July 06, 2024 8:29pm Advance Directives on File No June 29, 2024 7:14am Living Will Yes June 29, 2024 7:14am Do you have a Healthcare Pow er of Bike Assembler? Yes June 29, 2024 7:14am Name of Medical Power of Bike Assembler Jaquelin ([facility]) June 29, 2024 7:14am Advance Directives Yes June 29 7:14am Chief Complaint and Reason for Visit Chief Complaint ONE MONTH F/U WOUND CHECK LESION ON LEG AND HEAD excision scalp lesion UNCERTAIN NEOPLASM SCALP excision scalp lesion partial suture removal/3/2 excision scalp lesion 6 M FU Reason for Visit Actinic keratosis Skin lesion Skin cancer Skin lesion Skin cancer, basal cell Skin cancer, basal cell Chronic diastolic (congestive) heart failure Essential (primary) hypertension Longstanding persistent atrial fibrillation Chief Complaint excision scalp lesio n UNCERTAIN NEOPLASM SCALP excision scalp lesion partial suture removal/3/2 excision scalp lesion 6 M FU PER MSG FROM [facility] MARCUM Reason for Visit Skin lesion Skin cancer, basal cell Skin cancer, basal cell Chronic diastolic (congestive) heart failure Essential (primary) hypertension Longstanding persistent atrial fibrillation HARDEN (dyspnea on exertion) Chronic diastolic (congestive) heart failure Essential (primary) hypertension Longstanding persistent atrial fibrillation Chief Complaint 6 M FU PER MSG FROM [facility] [employer] DYSPNEA, A-FIB *MERA* Reason for Visit Chronic diastolic (c ongestive) heart failure Essential (primary) hypertension Longstanding persistent atrial fibrillation HARDEN (dyspnea on exertion) Chronic diastolic (congestive) heart failure Essential (primary) hypertension Longstanding persistent atrial fibrillation Chief Complaint 6 M FU PER MSG FROM [facility] [employer] DYSPNEA, A-FIB *MERA* PNEUMONIA, SEPSIS, AFIB RVR Reason for Visit Chronic diastolic (c ongestive) heart failure Essential (primary) hypertension Longstanding persistent atrial fibrillation HARDEN (dyspnea on exertion) Chronic diastolic (congestive) heart failure Essential (primary) hypertension Longstanding persistent atrial fibrillation Atrial fibrillation with RVR Chronic anticoagulation LLL pneumonia Sepsis Chronic diastolic (congestive) heart failure CKD (chronic kidney disease) stage 3, GFR 30-59 ml/min Chief Complaint PER MSG FROM GIGI Kinney EORDERS DYSPNEA, A-FIB *MERA* PNEUMONIA, SEPSIS, AFIB RVR PNEUMONIA, SEPSIS, AFIB RVR PNEUMONIA, SEPSIS, AFIB RVR PNEUMONIA, SEPSIS, AFIB RVR PNEUMONIA, SEPSIS, AFIB RVR PNEUMONIA, SEPSIS, AFIB RVR PNEUMONIA, SEPSIS, AFIB RVR PNEUMONIA, SEPSIS, AFIB RVR PNEUMONIA, SEPSIS, AFIB RVR PNEUMONIA, SEPSIS, AFIB RVR PNEUMONIA, SEPSIS, AFIB RVR PNEUMONIA AND AFIB PNEUMONIA AND AFIB Reason for Visit Essential (primary) hypertension Longstanding persistent atrial fibrillation HARDEN (dyspnea on exertion) Atrial fibrillation with RVR HARDEN (dyspnea on exertion) LLL pneumonia Acute respiratory failure with hypoxia Chronic kidney disease, stage 3b Debility Diabetes mellitus Hyperlipidemia Hypothyroidism Overactive bladder Acute on chronic diastolic congestive heart failure Hypertension Atrial fibrillation with RVR LLL pneumonia Chief Complaint PER MSG FROM BRUNO Nirmal EORDERS DYSPNEA, A-FIB *MERA* PNEUMONIA, SEPSIS, AFIB RVR PNEUMONIA, SEPSIS, AFIB RVR PNEUMONIA, SEPSIS, AFIB RVR PNEUMONIA, SEPSIS, AFIB RVR PNEUMONIA, SEPSIS, AFIB RVR PNEUMONIA, SEPSIS, AFIB RVR PNEUMONIA, SEPSIS, AFIB RVR PNEUMONIA, SEPSIS, AFIB RVR PNEUMONIA, SEPSIS, AFIB RVR PNEUMONIA, SEPSIS, AFIB RVR PNEUMONIA, SEPSIS, AFIB RVR PNEUMONIA AND AFIB PNEUMONIA AND AFIB 6-8 WK F/U E-ORDER Reason for Visit Essential (primary) hypertension HARDEN (dyspnea on exertion) Atrial fibrillation with RVR HARDEN (dyspnea on exertion) LLL pneumonia Acute on chronic diastolic congestive heart failure Acute respiratory failure with hypoxia Atrial fibrillation with RVR Debility LLL pneumonia Fatigue Essential (primary) hypertension HARDEN (dyspnea on exertion) Chief Complaint PER MSG FROM BRUNO Nirmal EORDERS DYSPNEA, A-FIB *MERA* PNEUMONIA, SEPSIS, AFIB RVR PNEUMONIA, SEPSIS, AFIB RVR PNEUMONIA, SEPSIS, AFIB RVR PNEUMONIA, SEPSIS, AFIB RVR PNEUMONIA, SEPSIS, AFIB RVR PNEUMONIA, SEPSIS, AFIB RVR PNEUMONIA, SEPSIS, AFIB RVR PNEUMONIA, SEPSIS, AFIB RVR PNEUMONIA, SEPSIS, AFIB RVR PNEUMONIA, SEPSIS, AFIB RVR PNEUMONIA, SEPSIS, AFIB RVR PNEUMONIA AND AFIB PNEUMONIA AND AFIB 6-8 WK F/U E-ORDER lower ext Reason for Visit Essential (primary) hypertension HARDEN (dyspnea on exertion) Atrial fibrillation with RVR HARDEN (dyspnea on exertion) LLL pneumonia Acute on chronic diastolic congestive heart failure Acute respiratory failure with hypoxia Atrial fibrillation with RVR Debility LLL pneumonia Fatigue Essential (primary) hypertension HARDEN (dyspnea on exertion) Chief Complaint DYSPNEA, A-FIB *OFOR I* PNEUMONIA, SEPSIS, AFIB RVR PNEUMONIA, SEPSIS, AFIB RVR PNEUMONIA, SEPSIS, AFIB RVR PNEUMONIA, SEPSIS, AFIB RVR PNEUMONIA, SEPSIS, AFIB RVR PNEUMONIA, SEPSIS, AFIB RVR PNEUMONIA, SEPSIS, AFIB RVR PNEUMONIA, SEPSIS, AFIB RVR PNEUMONIA, SEPSIS, AFIB RVR PNEUMONIA, SEPSIS, AFIB RVR PNEUMONIA, SEPSIS, AFIB RVR PNEUMONIA AND AFIB PNEUMONIA AND AFIB 6-8 WK F/U E-ORDER lower ext NEED ORDER Reason for Visit Atrial fibrillation with RVR HARDEN (dyspnea on exertion) LLL pneumonia Acute on chronic diastolic congestive heart failure Acute respiratory failure with hypoxia Atrial fibrillation with RVR Debility LLL pneumonia Fatigue Essential (primary) hypertension HARDEN (dyspnea on exertion) Chief Complaint PNEUMONIA AND AFIB PNEUMONIA AND AFIB 6-8 WK F/U E-ORDER lower ext NEED ORDER 3 M FU FEVER AND CHILLS Reason for Visit Acute on chronic shantal stolic congestive heart failure Acute respiratory failure with hypoxia Atrial fibrillation with RVR Debility LLL pneumonia Fatigue Essential (primary) hypertension HARDEN (dyspnea on exertion) Essential (primary) hypertension Chief Complaint lower ext NEED ORDER 3 M FU FEVER AND CHILLS DO ON OR AROUND DATE LISTED Reason for Visit Essential (primary) hypertension Chief Complaint lower ext NEED ORDER 3 M FU FEVER AND CHILLS DO ON OR AROUND DATE LISTED SOB per MMM/ L.Lorson E ORDER/stat HARDEN HARDEN Reason for Visit Essential (primary) hypertension Chest pain HARDEN (dyspnea on exertion) Essential (primary) hypertension Chief Complaint NEED ORDER 3 M FU FEVER AND CHILLS DO ON OR AROUND DATE LISTED SOB per MMM/ L.[place]ors[place] E ORDER/stat HARDEN HARDEN Reason for Visit Essential (primary) hypertension Chest pain HARDEN (dyspnea on exertion) Essential (primary) hypertension Chief Complaint 3 M FU FEVER AND CHILLS DO ON OR AROUND DATE LISTED SOB per MMM/ L.[place]orson E ORDER/stat HARDEN HARDEN DUE ON OR AROUND DATE LISTED PER ORDER Reason for Visit Essential (primary) hypertension Chest pain HARDEN (dyspnea on exertion) Essential (primary) hypertension Chief Complaint SOB per MMM/ Gigi n E ORDER/stat HARDEN HARDEN DUE ON OR AROUND DATE LISTED PER ORDER Reason for Visit Chest pain HARDEN (dyspnea on exertion) Essential (primary) hypertension Chief Complaint 1 Y FU Reason for Visit Essential (primary) hypertension Chief Complaint 1 Y FU Z78.0 Reason for Visit Essential (primary) hypertension Chief Complaint 1 Y FU Z78.0 Unilateral primary osteoarthritis, left knee CHILLS WITHOUT FEVER Reason for Visit Essential (primary) hypertension Chief Complaint 1 Y FU Z78.0 Unilateral primary osteoarthritis, left knee CHILLS WITHOUT FEVER 9 M FU Reason for Visit Essential (primary) hypertension Essential (primary) hypertension Chief Complaint Z78.0 Unilateral primary osteoarthritis, left knee CHILLS WITHOUT FEVER Total Knee Replacement Robotic Arm 9 M FU TYPE 2 DM Reason for Visit Essential (primary) hypertension Chief Complaint Z78.0 Unilateral primary osteoarthritis, left knee CHILLS WITHOUT FEVER Total Knee Replacement Robotic Arm 9 M FU TYPE 2 DM ORDER SCANNED Reason for Visit Essential (primary) hypertension Chief Complaint Z78.0 Unilateral primary osteoarthritis, left knee CHILLS WITHOUT FEVER Total Knee Replacement Robotic Arm 9 M FU TYPE 2 DM ORDER SCANNED LEFT PE LEFT PE Reason for Visit Essential (primary) hypertension Pleural effusion, left Chief Complaint Z78.0 Unilateral primary osteoarthritis, left knee CHILLS WITHOUT FEVER Total Knee Replacement Robotic Arm 9 M FU TYPE 2 DM ORDER SCANNED LEFT PE LEFT PE Solitary pulmonary nodule Reason for Visit Essential (primary) hypertension Pleural effusion, left Chief Complaint Z78.0 Unilateral primary osteoarthritis, left knee CHILLS WITHOUT FEVER Total Knee Replacement Robotic Arm 9 M FU TYPE 2 DM ORDER SCANNED LEFT PE LEFT PE Solitary pulmonary nodule LEFT PE Reason for Visit Essential (primary) hypertension Pleural effusion, left Chief Complaint Z78.0 Unilateral primary osteoarthritis, left knee CHILLS WITHOUT FEVER Total Knee Replacement Robotic Arm 9 M FU TYPE 2 DM ORDER SCANNED LEFT PE LEFT PE Solitary pulmonary nodule LEFT PE RECURRENT LEFT PLEURAL EFFUSION, A-FIB WITH RVR Reason for Visit Essential (primary) hypertension Pleural effusion, left Atrial fibrillation HARDEN (dyspnea on exertion) Pleural effusion, left Essential (primary) hypertension Chief Complaint Z78.0 Unilateral primary osteoarthritis, left knee CHILLS WITHOUT FEVER Total Knee Replacement Robotic Arm 9 M FU TYPE 2 DM ORDER SCANNED LEFT PE LEFT PE Solitary pulmonary nodule LEFT PE RECURRENT LEFT PLEURAL EFFUSION, A-FIB WITH RVR RECURRENT LEFT PLEURAL EFFUSION, A-FIB WITH RVR RECURRENT LEFT PLEURAL EFFUSION, A-FIB WITH RVR RECURRENT LEFT PLEURAL EFFUSION, A-FIB WITH RVR Reason for Visit Essential (primary) hypertension Pleural effusion, left Atrial fibrillation HARDEN (dyspnea on exertion) Pleural effusion, left Essential (primary) hypertension Chief Complaint Z78.0 Unilateral primary osteoarthritis, left knee CHILLS WITHOUT FEVER Total Knee Replacement Robotic Arm 9 M FU TYPE 2 DM ORDER SCANNED LEFT PE LEFT PE Solitary pulmonary nodule LEFT PE RECURRENT LEFT PLEURAL EFFUSION, A-FIB WITH RVR RECURRENT LEFT PLEURAL EFFUSION, A-FIB WITH RVR RECURRENT LEFT PLEURAL EFFUSION, A-FIB WITH RVR RECURRENT LEFT PLEURAL EFFUSION, A-FIB WITH RVR RECURRENT LEFT PLEURAL EFFUSION, A-FIB WITH RVR Reason for Visit Essential (primary) hypertension Pleural effusion, left Atrial fibrillation HARDEN (dyspnea on exertion) Pleural effusion, left Essential (primary) hypertension Chief Complaint CHILLS WITHOUT FEVER Total Knee Replacement Robotic Arm 9 M TYPE 2 DM ORDER SCANNED LEFT PE LEFT PE Solitary pulmonary nodule LEFT PE RECURRENT LEFT PLEURAL EFFUSION, A-FIB WITH RVR RECURRENT LEFT PLEURAL EFFUSION, A-FIB WITH RVR RECURRENT LEFT PLEURAL EFFUSION, A-FIB WITH RVR RECURRENT LEFT PLEURAL EFFUSION, A-FIB WITH RVR RECURRENT LEFT PLEURAL EFFUSION, A-FIB WITH RVR SOLITARY PULMONARY NODULE RECURRENT PLEURAL EFFUSION RECURRENT PLEURAL EFFUSION Multiple myeloma not having achieved remission RECURRENT LT PLEURAL EFFUSION RECURRENT LT PLEURAL EFFUSION Reason for Visit Essential (primary) hypertension Pleural effusion, left Atrial fibrillation HARDEN (dyspnea on exertion) Pleural effusion, left Essential (primary) hypertension Pleural effusion, left Pleural effusion, left Chief Complaint TYPE 2 DM ORDER SCANNED LEFT PE LEFT PE Solitary pulmonary nodule LEFT PE RECURRENT LEFT PLEURAL EFFUSION, A-FIB WITH RVR RECURRENT LEFT PLEURAL EFFUSION, A-FIB WITH RVR RECURRENT LEFT PLEURAL EFFUSION, A-FIB WITH RVR RECURRENT LEFT PLEURAL EFFUSION, A-FIB WITH RVR RECURRENT LEFT PLEURAL EFFUSION, A-FIB WITH RVR SOLITARY PULMONARY NODULE RECURRENT PLEURAL EFFUSION RECURRENT PLEURAL EFFUSION Multiple myeloma not having achieved remission RECURRENT LT PLEURAL EFFUSION RECURRENT LT PLEURAL EFFUSION S/P [facility] 02/16 LEFT PE LEFT PE Reason for Visit Pleural effusion, le ft Atrial fibrillation HARDEN (dyspnea on exertion) Pleural effusion, left Essential (primary) hypertension Pleural effusion, left Pleural effusion, left HARDEN (dyspnea on exertion) Pleural effusion, left Essential (primary) hypertension Pleural effusion, left Chief Complaint TYPE 2 DM ORDER SCANNED LEFT PE LEFT PE Solitary pulmonary nodule LEFT PE RECURRENT LEFT PLEURAL EFFUSION, A-FIB WITH RVR RECURRENT LEFT PLEURAL EFFUSION, A-FIB WITH RVR RECURRENT LEFT PLEURAL EFFUSION, A-FIB WITH RVR RECURRENT LEFT PLEURAL EFFUSION, A-FIB WITH RVR RECURRENT LEFT PLEURAL EFFUSION, A-FIB WITH RVR SOLITARY PULMONARY NODULE RECURRENT PLEURAL EFFUSION RECURRENT PLEURAL EFFUSION Multiple myeloma not having achieved remission RECURRENT LT PLEURAL EFFUSION RECURRENT LT PLEURAL EFFUSION S/P [facility] 12/ LEFT PE LEFT PE 2 ORDERING DRS/E ORDERS & PAPER 1 W FU Reason for Visit Pleural effusion, le ft Atrial fibrillation HARDEN (dyspnea on exertion) Pleural effusion, left Essential (primary) hypertension Pleural effusion, left Pleural effusion, left HARDEN (dyspnea on exertion) Pleural effusion, left Essential (primary) hypertension Pleural effusion, left HARDEN (dyspnea on exertion) Pleural effusion, left Essential (primary) hypertension Chief Complaint TYPE 2 DM ORDER SCANNED LEFT PE LEFT PE Solitary pulmonary nodule LEFT PE RECURRENT LEFT PLEURAL EFFUSION, A-FIB WITH RVR RECURRENT LEFT PLEURAL EFFUSION, A-FIB WITH RVR RECURRENT LEFT PLEURAL EFFUSION, A-FIB WITH RVR RECURRENT LEFT PLEURAL EFFUSION, A-FIB WITH RVR RECURRENT LEFT PLEURAL EFFUSION, A-FIB WITH RVR SOLITARY PULMONARY NODULE RECURRENT PLEURAL EFFUSION RECURRENT PLEURAL EFFUSION Multiple myeloma not having achieved remission RECURRENT LT PLEURAL EFFUSION RECURRENT LT PLEURAL EFFUSION S/P [facility] 12/ LEFT PE LEFT PE 2 ORDERING DRS/E ORDERS & PAPER 1 W FU ER Follow up- Left PE LEFT PE LEFT PE Reason for Visit Pleural effusion, le ft Atrial fibrillation HARDEN (dyspnea on exertion) Essential (primary) hypertension Pleural effusion, left Pleural effusion, left Pleural effusion, left HARDEN (dyspnea on exertion) Essential (primary) hypertension Pleural effusion, left Pleural effusion, left HARDEN (dyspnea on exertion) Essential (primary) hypertension Pleural effusion, left Pleural effusion, left Pleural effusion, left Chief Complaint ORDER SCANNED LEFT PE LEFT PE Solitary pulmonary nodule LEFT PE RECURRENT LEFT PLEURAL EFFUSION, A-FIB WITH RVR RECURRENT LEFT PLEURAL EFFUSION, A-FIB WITH RVR RECURRENT LEFT PLEURAL EFFUSION, A-FIB WITH RVR RECURRENT LEFT PLEURAL EFFUSION, A-FIB WITH RVR RECURRENT LEFT PLEURAL EFFUSION, A-FIB WITH RVR SOLITARY PULMONARY NODULE RECURRENT PLEURAL EFFUSION RECURRENT PLEURAL EFFUSION Multiple myeloma not having achieved remission RECURRENT LT PLEURAL EFFUSION RECURRENT LT PLEURAL EFFUSION S/P [facility] 12 LEFT PE LEFT PE 2 ORDERING DRS/E ORDERS & PAPER 1 W FU ER Follow up- Left PE LEFT PE LEFT PE LT PLEURAL EFFUSION LT PLEURAL EFFUSION 3 wk fu Reason for Visit Pleural effusion, le ft Atrial fibrillation HARDEN (dyspnea on exertion) Essential (primary) hypertension Pleural effusion, left Pleural effusion, left Pleural effusion, left HARDEN (dyspnea on exertion) Essential (primary) hypertension Pleural effusion, left Pleural effusion, left HARDEN (dyspnea on exertion) Essential (primary) hypertension Pleural effusion, left Pleural effusion, left Pleural effusion, left Pleural effusion, left HARDEN (dyspnea on exertion) Essential (primary) hypertension Pleural effusion, left Chief Complaint ORDER SCANNED LEFT PE LEFT PE Solitary pulmonary nodule LEFT PE RECURRENT LEFT PLEURAL EFFUSION, A-FIB WITH RVR RECURRENT LEFT PLEURAL EFFUSION, A-FIB WITH RVR RECURRENT LEFT PLEURAL EFFUSION, A-FIB WITH RVR RECURRENT LEFT PLEURAL EFFUSION, A-FIB WITH RVR RECURRENT LEFT PLEURAL EFFUSION, A-FIB WITH RVR SOLITARY PULMONARY NODULE RECURRENT PLEURAL EFFUSION RECURRENT PLEURAL EFFUSION Multiple myeloma not having achieved remission RECURRENT LT PLEURAL EFFUSION RECURRENT LT PLEURAL EFFUSION S/P [facility] 12 LEFT PE LEFT PE 2 ORDERING DRS/E ORDERS & PAPER 1 W FU ER Follow up- Left PE LEFT PE LEFT PE LT PLEURAL EFFUSION LT PLEURAL EFFUSION 3 wk fu Pain in left lower leg PE PE RECURRENT PLEURAL EFFUSION Reason for Visit Pleural effusion, le ft Atrial fibrillation HARDEN (dyspnea on exertion) Essential (primary) hypertension Pleural effusion, left Pleural effusion, left Pleural effusion, left HARDEN (dyspnea on exertion) Essential (primary) hypertension Pleural effusion, left Pleural effusion, left HARDEN (dyspnea on exertion) Essential (primary) hypertension Pleural effusion, left Pleural effusion, left Pleural effusion, left Pleural effusion, left HARDEN (dyspnea on exertion) Essential (primary) hypertension Pleural effusion, left Pleural effusion, left Chief Complaint LEFT PE LEFT PE Solitary pulmonary nodule LEFT PE RECURRENT LEFT PLEURAL EFFUSION, A-FIB WITH RVR RECURRENT LEFT PLEURAL EFFUSION, A-FIB WITH RVR RECURRENT LEFT PLEURAL EFFUSION, A-FIB WITH RVR RECURRENT LEFT PLEURAL EFFUSION, A-FIB WITH RVR RECURRENT LEFT PLEURAL EFFUSION, A-FIB WITH RVR SOLITARY PULMONARY NODULE RECURRENT PLEURAL EFFUSION RECURRENT PLEURAL EFFUSION Multiple myeloma not having achieved remission RECURRENT LT PLEURAL EFFUSION RECURRENT LT PLEURAL EFFUSION S/P [facility] 12/ LEFT PE LEFT PE 2 ORDERING DRS/E ORDERS & PAPER 1 W FU ER Follow up- Left PE LEFT PE LEFT PE LT PLEURAL EFFUSION LT PLEURAL EFFUSION 3 wk fu Pain in left lower leg PE PE RECURRENT PLEURAL EFFUSION PE PE Reason for Visit Pleural effusion, le ft Atrial fibrillation HARDEN (dyspnea on exertion) Essential (primary) hypertension Pleural effusion, left Pleural effusion, left Pleural effusion, left HARDEN (dyspnea on exertion) Essential (primary) hypertension Pleural effusion, left Pleural effusion, left HARDEN (dyspnea on exertion) Essential (primary) hypertension Pleural effusion, left Pleural effusion, left Pleural effusion, left Pleural effusion, left HARDEN (dyspnea on exertion) Essential (primary) hypertension Pleural effusion, left Pleural effusion, left Pleural effusion, left Chief Complaint Solitary pulmonary n odule LEFT PE RECURRENT LEFT PLEURAL EFFUSION, A-FIB WITH RVR RECURRENT LEFT PLEURAL EFFUSION, A-FIB WITH RVR RECURRENT LEFT PLEURAL EFFUSION, A-FIB WITH RVR RECURRENT LEFT PLEURAL EFFUSION, A-FIB WITH RVR RECURRENT LEFT PLEURAL EFFUSION, A-FIB WITH RVR SOLITARY PULMONARY NODULE RECURRENT PLEURAL EFFUSION RECURRENT PLEURAL EFFUSION Multiple myeloma not having achieved remission RECURRENT LT PLEURAL EFFUSION RECURRENT LT PLEURAL EFFUSION S/P [facility] 02/16 LEFT PE LEFT PE 2 ORDERING DRS/E ORDERS & PAPER 1 W FU ER Follow up- Left PE LEFT PE LEFT PE LT PLEURAL EFFUSION LT PLEURAL EFFUSION 3 wk fu Pain in left lower leg PE PE RECURRENT PLEURAL EFFUSION PE PE PLEURAL EFFUSION/INT LABS PLEURAL EFFUSION/INT LABS HARDEN Reason for Visit Atrial fibrillation HARDEN (dyspnea on exertion) Essential (primary) hypertension Pleural effusion, left Pleural effusion, left Pleural effusion, left HARDEN (dyspnea on exertion) Essential (primary) hypertension Pleural effusion, left Pleural effusion, left HARDEN (dyspnea on exertion) Essential (primary) hypertension Pleural effusion, left Pleural effusion, left Pleural effusion, left Pleural effusion, left HARDEN (dyspnea on exertion) Essential (primary) hypertension Pleural effusion, left Pleural effusion, left Pleural effusion, left Pleural effusion, left Chief Complaint LEFT PE RECURRENT LEFT PLEURAL EFFUSION, A-FIB WITH RVR RECURRENT LEFT PLEURAL EFFUSION, A-FIB WITH RVR RECURRENT LEFT PLEURAL EFFUSION, A-FIB WITH RVR RECURRENT LEFT PLEURAL EFFUSION, A-FIB WITH RVR RECURRENT LEFT PLEURAL EFFUSION, A-FIB WITH RVR SOLITARY PULMONARY NODULE RECURRENT PLEURAL EFFUSION RECURRENT PLEURAL EFFUSION Multiple myeloma not having achieved remission RECURRENT LT PLEURAL EFFUSION RECURRENT LT PLEURAL EFFUSION S/P [facility] 02/16 LEFT PE LEFT PE 2 ORDERING DRS/E ORDERS & PAPER 1 W FU ER Follow up- Left PE LEFT PE LEFT PE LT PLEURAL EFFUSION LT PLEURAL EFFUSION 3 wk fu Pain in left lower leg PE PE RECURRENT PLEURAL EFFUSION PE PE PLEURAL EFFUSION/INT LABS PLEURAL EFFUSION/INT LABS HARDEN 6 wk FU PLEURAL EFFUSION PLEURAL EFFUSION 6 W FU Reason for Visit Atrial fibrillation HARDEN (dyspnea on exertion) Essential (primary) hypertension Pleural effusion, left Pleural effusion, left Pleural effusion, left HARDEN (dyspnea on exertion) Chronic diastolic (congestive) heart failure Essential (primary) hypertension Pleural effusion, left Pleural effusion, left HARDEN (dyspnea on exertion) Chronic diastolic (congestive) heart failure Essential (primary) hypertension Pleural effusion, left Pleural effusion, left Pleural effusion, left Pleural effusion, left HARDEN (dyspnea on exertion) Chronic diastolic (congestive) heart failure Essential (primary) hypertension Pleural effusion, left Pleural effusion, left Pleural effusion, left Pleural effusion, left Chronic diastolic (congestive) heart failure Pleural effusion, left Stage 2 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 Pleural effusion, left HARDEN (dyspnea on exertion) Chronic diastolic (congestive) heart failure Essential (primary) hypertension Pleural effusion, left Chief Complaint SOLITARY PULMONARY N ODULE RECURRENT PLEURAL EFFUSION RECURRENT PLEURAL EFFUSION Multiple myeloma not having achieved remission RECURRENT LT PLEURAL EFFUSION RECURRENT LT PLEURAL EFFUSION S/P [facility] 02/16 LEFT PE LEFT PE 2 ORDERING DRS/E ORDERS & PAPER 1 W FU ER Follow up- Left PE LEFT PE LEFT PE LT PLEURAL EFFUSION LT PLEURAL EFFUSION 3 wk fu Pain in left lower leg PE PE RECURRENT PLEURAL EFFUSION PE PE PLEURAL EFFUSION/INT LABS PLEURAL EFFUSION/INT LABS HARDEN 6 wk FU PLEURAL EFFUSION PLEURAL EFFUSION 6 W FU PLEURAL EFFUSION; COPD PLEURAL EFFUSION; COPD PLEURAL EFFUSION; COPD Reason for Visit Pleural effusion, le ft Pleural effusion, left HARDEN (dyspnea on exertion) Chronic diastolic (congestive) heart failure Essential (primary) hypertension Longstanding persistent atrial fibrillation Pleural effusion, left Pleural effusion, left HARDEN (dyspnea on exertion) Chronic diastolic (congestive) heart failure Essential (primary) hypertension Longstanding persistent atrial fibrillation Pleural effusion, left Pleural effusion, left Pleural effusion, left Pleural effusion, left HARDEN (dyspnea on exertion) Chronic diastolic (congestive) heart failure Essential (primary) hypertension Longstanding persistent atrial fibrillation Pleural effusion, left Pleural effusion, left Pleural effusion, left Pleural effusion, left Chronic diastolic (congestive) heart failure Pleural effusion, left Stage 2 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 Pleural effusion, left Chronic diastolic (congestive) heart failure Essential (primary) hypertension Longstanding persistent atrial fibrillation Pleural effusion, left Pleural effusion, left Chief Complaint SOLITARY PULMONARY N ODULE RECURRENT PLEURAL EFFUSION RECURRENT PLEURAL EFFUSION Multiple myeloma not having achieved remission RECURRENT LT PLEURAL EFFUSION RECURRENT LT PLEURAL EFFUSION S/P [facility] 12/ LEFT PE LEFT PE 2 ORDERING DRS/E ORDERS & PAPER 1 W FU ER Follow up- Left PE LEFT PE LEFT PE LT PLEURAL EFFUSION LT PLEURAL EFFUSION 3 wk fu Pain in left lower leg PE PE RECURRENT PLEURAL EFFUSION PE PE PLEURAL EFFUSION/INT LABS PLEURAL EFFUSION/INT LABS HARDEN 6 wk FU PLEURAL EFFUSION PLEURAL EFFUSION 6 W FU PLEURAL EFFUSION; COPD PLEURAL EFFUSION; COPD PLEURAL EFFUSION; COPD DUE ON OR AROUND DATE LISTED LEFT PE LEFT PE Reason for Visit Pleural effusion, le ft Pleural effusion, left HARDEN (dyspnea on exertion) Chronic diastolic (congestive) heart failure Essential (primary) hypertension Longstanding persistent atrial fibrillation Pleural effusion, left Pleural effusion, left HARDEN (dyspnea on exertion) Chronic diastolic (congestive) heart failure Essential (primary) hypertension Longstanding persistent atrial fibrillation Pleural effusion, left Pleural effusion, left Pleural effusion, left Pleural effusion, left HARDEN (dyspnea on exertion) Chronic diastolic (congestive) heart failure Essential (primary) hypertension Longstanding persistent atrial fibrillation Pleural effusion, left Pleural effusion, left Pleural effusion, left Pleural effusion, left Chronic diastolic (congestive) heart failure Pleural effusion, left Stage 2 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 Pleural effusion, left Chronic diastolic (congestive) heart failure Essential (primary) hypertension Longstanding persistent atrial fibrillation Pleural effusion, left Pleural effusion, left Chief Complaint Multiple myeloma not having achieved remission RECURRENT LT PLEURAL EFFUSION RECURRENT LT PLEURAL EFFUSION S/P [facility] 12/ LEFT PE LEFT PE 2 ORDERING DRS/E ORDERS & PAPER 1 W FU ER Follow up- Left PE LEFT PE LEFT PE LT PLEURAL EFFUSION LT PLEURAL EFFUSION 3 wk fu Pain in left lower leg PE PE RECURRENT PLEURAL EFFUSION PE PE PLEURAL EFFUSION/INT LABS PLEURAL EFFUSION/INT LABS HARDEN 6 wk FU PLEURAL EFFUSION PLEURAL EFFUSION 6 W FU PLEURAL EFFUSION; COPD PLEURAL EFFUSION; COPD PLEURAL EFFUSION; COPD DUE ON OR AROUND DATE LISTED LEFT PE LEFT PE PE Reason for Visit Pleural effusion, le ft HARDEN (dyspnea on exertion) Chronic diastolic (congestive) heart failure Essential (primary) hypertension Longstanding persistent atrial fibrillation Pleural effusion, left Pleural effusion, left HARDEN (dyspnea on exertion) Chronic diastolic (congestive) heart failure Essential (primary) hypertension Longstanding persistent atrial fibrillation Pleural effusion, left Pleural effusion, left Pleural effusion, left Pleural effusion, left HARDEN (dyspnea on exertion) Chronic diastolic (congestive) heart failure Essential (primary) hypertension Longstanding persistent atrial fibrillation Pleural effusion, left Pleural effusion, left Pleural effusion, left Pleural effusion, left Chronic diastolic (congestive) heart failure Pleural effusion, left Stage 2 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 Pleural effusion, left Chronic diastolic (congestive) heart failure Essential (primary) hypertension Longstanding persistent atrial fibrillation Pleural effusion, left Pleural effusion, left Chief Complaint Admit Date CHF EXACERBATION March 16, 2024 2:13pm sob March 16, 2024 2:30pm CHF EXACERBATION March 17, 2024 11:36am CHF EXACERBATION March 18, 2024 12 :52pm Chronic respiratory failure with hypoxia April 01, 2024 2:03pm 3 M FU April 01, 2024 3 :03pm CHF EXACERBATION April 05, 2024 1 2:50pm CHF EXACERBATION April 05, 2024 1 2:52pm CHF EXACERBATION April 06, 2024 1 0:24am CHF EXACERBATION April 07, 2024 1 1:07am PLEURAL EFFUSION April 20, 2024 1 :07pm PLEURAL EFFUSION April 24, 2024 1 1:31am PAF RVR, HYPOXIA, PNA April 25, 2024 11:06pm EKG April 26, 2024 6 :48am PAF RVR, HYPOXIA, PNA April 26, 2024 7:38am PAF RVR, HYPOXIA, PNA April 27 6:09pm PAF RVR, HYPOXIA, PNA April 28 4:21pm 6 M FU May 14, 2024 2:35pm UPDATE H & P June 26, 2024 1:4 9pm Chronic diastolic (congestive) heart christos lure June 29, 2024 6:39am Reason for Visit Admit Date (HFpEF) heart failure with preserved eje ction fraction March 16, 2024 2:13pm Acute heart failure with pre served ejection fraction (HFpEF) March 16, 2024 2:13pm Acute HFrEF (heart failure with reduced ejection fraction) March 16, 2024 2:13pm Acute hypoxemic respiratory failure Dece mber 2023 2:13pm Acute on chronic hypoxic respiratory christos lure March 16, 2024 2:13pm Atrial fibrillation with rapid ventricul ar response March 16, 2024 2:13pm Bilateral pleural effusion February 2:13pm Hypoxic respiratory failure February 2:13pm Anticoagulated March 16, 2024 2:13pm Daytime hypersomnia April 01, 2024 3 :03pm Chronic diastolic (congestive) heart christos lure April 01, 2024 3:03pm Hypoxia April 01, 2024 3 :03pm Longstanding persistent atrial fibrillat ion April 01, 2024 3:03pm Pleural effusion, left April 01 3:03pm Stage 2 moderate COPD by GOLD classifica tion April 01, 2024 3:03pm Acute bronchospasm April 05, 2024 1 2:50pm Acute exacerbation of chronic heart fail ure April 05, 2024 12:50pm Chronic anticoagulation April 05 12:50pm Chronic kidney disease, stage 3b April 05, 2024 12:50pm Hyperlipidemia April 05, 2024 1 2:50pm Hypothyroidism April 05, 2024 1 2:50pm Essential (primary) hypertension April 05, 2024 12:50pm Atrial fibrillation with RVR March 12:50pm Chronic respiratory failure with hypoxia and hypercapnia April 05, 2024 12:50pm Acute exacerbation of chroni c obstructive pulmonary disease April 05, 2024 12:50pm Nausea and vomiting April 25, 2024 1 1:06pm Pleural effusion April 25, 2024 1 1:06pm Pneumonia April 25, 2024 1 1:06pm Atrial fibrillation with RVR April 11:06pm CHF (congestive heart failure) April 25, 2024 11:06pm Chronic diastolic (congestive) heart christos lure May 14, 2024 2:35pm Essential (primary) hypertension 2024 2:35pm Longstanding persistent atrial fibrillat ion May 14, 2024 2:35pm Pleural effusion, left May 14 2:35pm Tricuspid valve insufficiency June 1:49pm Chief Complaint Admit Date CHF EXACERBATION March 16, 2024 2:13pm sob March 16, 2024 2:30pm CHF EXACERBATION March 17, 2024 11:36am CHF EXACERBATION March 18, 2024 12 :52pm Chronic respiratory failure with hypoxia April 01, 2024 2:03pm 3 M FU April 01, 2024 3 :03pm CHF EXACERBATION April 05, 2024 1 2:50pm CHF EXACERBATION April 05, 2024 1 2:52pm CHF EXACERBATION April 06, 2024 1 0:24am CHF EXACERBATION April 07, 2024 1 1:07am PLEURAL EFFUSION April 20, 2024 1 :07pm PLEURAL EFFUSION April 24, 2024 1 1:31am PAF RVR, HYPOXIA, PNA April 25, 2024 11:06pm EKG April 26, 2024 6 :48am PAF RVR, HYPOXIA, PNA April 26, 2024 7:38am PAF RVR, HYPOXIA, PNA April 27 6:09pm PAF RVR, HYPOXIA, PNA April 28 4:21pm 6 M FU May 14, 2024 2:35pm UPDATE H & P June 26, 2024 1:4 9pm Chronic diastolic (congestive) heart christos lure June 29, 2024 6:39am weakness, leg pain, confusion June 2:57pm SEPSIS, CELLULITIS, PAF RVR, HF EXAC Apr 2024 3:02pm Reason for Visit Admit Date (HFpEF) heart failure with preserved eje ction fraction March 16, 2024 2:13pm Acute heart failure with pre served ejection fraction (HFpEF) March 16, 2024 2:13pm Acute HFrEF (heart failure with reduced ejection fraction) March 16, 2024 2:13pm Acute hypoxemic respiratory failure Dece mber 2023 2:13pm Acute on chronic hypoxic respiratory christos lure March 16, 2024 2:13pm Atrial fibrillation with rapid ventricul ar response March 16, 2024 2:13pm Bilateral pleural effusion February 2:13pm Hypoxic respiratory failure February 2:13pm Anticoagulated March 16, 2024 2:13pm Daytime hypersomnia April 01, 2024 3 :03pm Chronic diastolic (congestive) heart christos lure April 01, 2024 3:03pm Hypoxia April 01, 2024 3 :03pm Longstanding persistent atrial fibrillat ion April 01, 2024 3:03pm Pleural effusion, left April 01 3:03pm Stage 2 moderate COPD by GOLD classifica tion April 01, 2024 3:03pm Acute bronchospasm April 05, 2024 1 2:50pm Acute exacerbation of chronic heart fail ure April 05, 2024 12:50pm Chronic anticoagulation April 05 12:50pm Chronic kidney disease, stage 3b April 05, 2024 12:50pm Hyperlipidemia April 05, 2024 1 2:50pm Hypothyroidism April 05, 2024 1 2:50pm Essential (primary) hypertension April 05, 2024 12:50pm Atrial fibrillation with RVR March 12:50pm Chronic respiratory failure with hypoxia and hypercapnia April 05, 2024 12:50pm Acute exacerbation of chroni c obstructive pulmonary disease April 05, 2024 12:50pm Nausea and vomiting April 25, 2024 1 1:06pm Pleural effusion April 25, 2024 1 1:06pm Pneumonia April 25, 2024 1 1:06pm Atrial fibrillation with RVR April 11:06pm CHF (congestive heart failure) April 25, 2024 11:06pm Chronic diastolic (congestive) heart christos lure May 14, 2024 2:35pm Essential (primary) hypertension 2024 2:35pm Longstanding persistent atrial fibrillat ion May 14, 2024 2:35pm Pleural effusion, left May 14 2:35pm Tricuspid valve insufficiency June 1:49pm Atrial fibrillation with RVR June 30, 2024 3:02pm Cellulitis of right lower leg June 3:02pm Encephalopathy acute June 30, 2024 3: 02pm Sepsis June 30, 2024 3:0 2pm Acute on chronic diastolic (congestive) heart failure June 30, 2024 3:02pm Chief Complaint Admit Date Chronic respiratory failure with hypoxia April 01, 2024 2:03pm 3 M FU April 01, 2024 3 :03pm CHF EXACERBATION April 05, 2024 1 2:50pm CHF EXACERBATION April 05, 2024 1 2:52pm CHF EXACERBATION April 06, 2024 1 0:24am CHF EXACERBATION April 07, 2024 1 1:07am PLEURAL EFFUSION April 20, 2024 1 :07pm PLEURAL EFFUSION April 24, 2024 1 1:31am PAF RVR, HYPOXIA, PNA April 25, 2024 11:06pm EKG April 26, 2024 6 :48am PAF RVR, HYPOXIA, PNA April 26, 2024 7:38am PAF RVR, HYPOXIA, PNA April 27 6:09pm PAF RVR, HYPOXIA, PNA April 28 4:21pm 6 M FU May 14, 2024 2:35pm UPDATE H & P June 26, 2024 1:4 9pm Chronic diastolic (congestive) heart christos lure June 29, 2024 6:39am weakness, leg pain, confusion June 2:57pm SEPSIS, CELLULITIS, PAF RVR, HF EXAC Apr 2024 3:02pm SEPSIS, CELLULITIS, PAF RVR, HF EXAC Apr 2024 7:37am SEPSIS, CELLULITIS, PAF RVR, HF EXAC Apr 2024 8:21am SEPSIS, CELLULITIS, PAF RVR, HF EXAC Apr 2024 12:35pm SEPSIS, CELLULITIS, PAF RVR, HF EXAC Apr 2024 3:16pm SEPSIS, CELLULITIS, PAF RVR, HF EXAC Apr 2024 7:36am SEPSIS, CELLULITIS, PAF RVR, HF EXAC Apr 2024 7:59am SEPSIS, CELLULITIS, PAF RVR, HF EXAC Apr 2024 8:09am SEPSIS, CELLULITIS, PAF RVR, HF EXAC Apr 2024 10:25am SEPSIS, CELLULITIS, PAF RVR, HF EXAC Apr 2024 7:21am SEPSIS, CELLULITIS, PAF RVR, HF EXAC Apr 2024 10:36am SEPSIS, CELLULITIS, PAF RVR, HF EXAC Apr 2024 9:28am SEPSIS, CELLULITIS, PAF RVR, HF EXAC Apr 2024 11:47am SEPSIS, CELLULITIS, PAF RVR, HF EXAC Apr 2024 8:46am SEPSIS, CELLULITIS, PAF RVR, HF EXAC Apr 2024 3:12pm SEPSIS, CELLULITIS, PAF RVR, HF EXAC Apr 2024 4:40pm SEPSIS, CELLULITIS, ILEUS, AFIB RVR, CHF EXACER July 06, 2024 7:11pm RT LEG PAIN July 08, 2024 8:3 9am Reason for Visit Admit Date Chronic diastolic (congestive) heart christos lure April 01, 2024 3:03pm Longstanding persistent atrial fibrillat ion April 01, 2024 3:03pm Stage 2 moderate COPD by GOLD classifica tion April 01, 2024 3:03pm Daytime hypersomnia April 01, 2024 3 :03pm Hypoxia April 01, 2024 3 :03pm Pleural effusion, left April 01 3:03pm Hyperlipidemia April 05, 2024 1 2:50pm Hypothyroidism April 05, 2024 1 2:50pm Atrial fibrillation with RVR March 12:50pm Acute bronchospasm April 05, 2024 1 2:50pm Acute exacerbation of chronic heart fail ure April 05, 2024 12:50pm Chronic anticoagulation April 05 12:50pm Chronic kidney disease, stage 3b April 05, 2024 12:50pm Chronic respiratory failure with hypoxia and hypercapnia April 05, 2024 12:50pm Essential (primary) hypertension April 05, 2024 12:50pm Acute exacerbation of chroni c obstructive pulmonary disease April 05, 2024 12:50pm Atrial fibrillation with RVR April 11:06pm CHF (congestive heart failure) April 25, 2024 11:06pm Nausea and vomiting April 25, 2024 1 1:06pm Pleural effusion April 25, 2024 1 1:06pm Pneumonia April 25, 2024 1 1:06pm Chronic diastolic (congestive) heart christos lure May 14, 2024 2:35pm Longstanding persistent atrial fibrillat ion May 14, 2024 2:35pm Essential (primary) hypertension Februar y 2024 2:35pm Pleural effusion, left May 14 2:35pm Tricuspid valve insufficiency June 1:49pm (HFpEF) heart failure with preserved eje ction fraction June 30, 2024 3:02pm Acute on chronic diastolic (congestive) heart failure June 30, 2024 3:02pm Atrial fibrillation with RVR June 30, 2024 3:02pm Bacteremia June 30, 2024 3:0 2pm Cellulitis of right leg June 30, 2024 3:02pm Cellulitis of right lower leg June 3:02pm Chronic kidney disease, stage 3b June 162024 3:02pm Elevated troponin June 30, 2024 3:0 2pm Encephalopathy acute June 30, 2024 3: 02pm Essential (primary) hypertension June 162024 3:02pm Ileus due to infection June 30, 2024 3:02pm Sepsis June 30, 2024 3:0 2pm Tricuspid valve insufficiency June 3:02pm Type 2 diabetes mellitus with hyperglyce rivas June 30, 2024 3:02pm Hyperlipidemia July 06, 2024 7:1 1pm Hypothyroidism July 06, 2024 7:1 1pm COPD (chronic obstructive pulmonary dise ase) July 06, 2024 7:11pm Debility July 06, 2024 7:1 1pm Acute on chronic diastolic (congestive) heart failure July 06, 2024 7:11pm Atrial fibrillation with RVR July 06, 2024 7:11pm Bacteremia July 06, 2024 7:1 1pm Cellulitis of right leg July 06, 2024 7:11pm Chronic kidney disease, stage 3b June 172024 7:11pm Encephalopathy acute July 06, 2024 7: 11pm Ileus due to infection July 06, 2024 7:11pm Iron deficiency anemia July 06, 2024 7:11pm Sepsis July 06, 2024 7:1 1pm Tricuspid valve insufficiency June 7:11pm Type 2 diabetes mellitus with hyperglyce rivas July 06, 2024 7:11pm Chief Complaint Admit Date PLEURAL EFFUSION April 20, 2024 1 :07pm PLEURAL EFFUSION April 24, 2024 1 1:31am PAF RVR, HYPOXIA, PNA April 25, 2024 11:06pm EKG April 26, 2024 6 :48am PAF RVR, HYPOXIA, PNA April 26, 2024 7:38am PAF RVR, HYPOXIA, PNA April 27 6:09pm PAF RVR, HYPOXIA, PNA April 28 4:21pm 6 M FU May 14, 2024 2:35pm UPDATE H & P June 26, 2024 1:4 9pm Chronic diastolic (congestive) heart christos lure June 29, 2024 6:39am weakness, leg pain, confusion June 2:57pm SEPSIS, CELLULITIS, PAF RVR, HF EXAC Apr il 2024 3:02pm SEPSIS, CELLULITIS, PAF RVR, HF EXAC Apr il 2024 7:37am SEPSIS, CELLULITIS, PAF RVR, HF EXAC Apr il 2024 8:21am SEPSIS, CELLULITIS, PAF RVR, HF EXAC Apr il 2024 12:35pm SEPSIS, CELLULITIS, PAF RVR, HF EXAC Apr il 2024 3:16pm SEPSIS, CELLULITIS, PAF RVR, HF EXAC Apr il 2024 7:36am SEPSIS, CELLULITIS, PAF RVR, HF EXAC Apr il 2024 7:59am SEPSIS, CELLULITIS, PAF RVR, HF EXAC Apr il 2024 8:09am SEPSIS, CELLULITIS, PAF RVR, HF EXAC Apr il 2024 10:25am SEPSIS, CELLULITIS, PAF RVR, HF EXAC Apr il 2024 7:21am SEPSIS, CELLULITIS, PAF RVR, HF EXAC Apr il 2024 10:36am SEPSIS, CELLULITIS, PAF RVR, HF EXAC Apr il 2024 9:28am SEPSIS, CELLULITIS, PAF RVR, HF EXAC Apr il 2024 11:47am SEPSIS, CELLULITIS, PAF RVR, HF EXAC Apr 2024 8:46am SEPSIS, CELLULITIS, PAF RVR, HF EXAC Apr 2024 3:12pm SEPSIS, CELLULITIS, PAF RVR, HF EXAC Apr 2024 4:40pm SEPSIS, CELLULITIS, ILEUS, AFIB RVR, CHF EXACER July 06, 2024 7:11pm RT LEG PAIN July 08, 2024 8:3 9am RT LEG PAIN July 08, 2024 11: 01am Reason for Visit Admit Date Atrial fibrillation with RVR April 11:06pm CHF (congestive heart failure) April 25, 2024 11:06pm Nausea and vomiting April 25, 2024 1 1:06pm Pleural effusion April 25, 2024 1 1:06pm Pneumonia April 25, 2024 1 1:06pm Chronic diastolic (congestive) heart christos lure May 14, 2024 2:35pm Longstanding persistent atrial fibrillat ion May 14, 2024 2:35pm Essential (primary) hypertension Februar y 2024 2:35pm Pleural effusion, left May 14 2:35pm Tricuspid valve insufficiency June 1:49pm (HFpEF) heart failure with preserved eje ction fraction June 30, 2024 3:02pm Acute on chronic diastolic (congestive) heart failure June 30, 2024 3:02pm Atrial fibrillation with RVR June 30, 2024 3:02pm Bacteremia June 30, 2024 3:0 2pm Cellulitis of right leg June 30, 2024 3:02pm Cellulitis of right lower leg June 3:02pm Chronic kidney disease, stage 3b June 162024 3:02pm Elevated troponin June 30, 2024 3:0 2pm Encephalopathy acute June 30, 2024 3: 02pm Essential (primary) hypertension June 162024 3:02pm Ileus due to infection June 30, 2024 3:02pm Sepsis June 30, 2024 3:0 2pm Tricuspid valve insufficiency June 3:02pm Type 2 diabetes mellitus with hyperglyce rivas June 30, 2024 3:02pm Hyperlipidemia July 06, 2024 7:1 1pm Hypothyroidism July 06, 2024 7:1 1pm COPD (chronic obstructive pulmonary dise ase) July 06, 2024 7:11pm Debility July 06, 2024 7:1 1pm Acute on chronic diastolic (congestive) heart failure July 06, 2024 7:11pm Atrial fibrillation with RVR July 06, 2024 7:11pm Bacteremia July 06, 2024 7:1 1pm Cellulitis of right leg July 06, 2024 7:11pm Chronic kidney disease, stage 3b June 172024 7:11pm Encephalopathy acute July 06, 2024 7: 11pm Ileus due to infection July 06, 2024 7:11pm Iron deficiency anemia July 06, 2024 7:11pm Sepsis July 06, 2024 7:1 1pm Tricuspid valve insufficiency June 7:11pm Type 2 diabetes mellitus with hyperglyce rivas July 06, 2024 7:11pm Additional Source Comments INFORMATION SOURCE (unrecogn ized section and content) DATE CREATED AUTHOR 04/18/2020 [facility] DATE CREATED AUTHOR AUTHOR'S ORGANIZ ATION [facility] DATE CREATED AUTHOR AUTHOR'S ORGANIZ ATION 09/29/2024 [facility] Goals (unrecognized section and content) Goals may be documented in a n alternate sectionGoals may be documented in an alternate sectionGoals may be documented in an alternate sectionGoals may be documented in an alternate sectionGoals may be documented in an alternate sectionGoals may be documented in an alternate sectionGoals may be documented in an alternate sectionGoals may be documented in an alternate sectionGoals may be documented in an alternate sectionGoals may be documented in an alternate sectionGoals may be documented in an alternate sectionGoals may be documented in an alternate sectionGoals may be documented in an alternate sectionGoals may be documented in an alternate sectionGoals may be documented in an alternate sectionGoals may be documented in an alternate sectionGoals may be documented in an alternate sectionGoals may be documented in an alternate sectionGoals may be documented in an alternate sectionGoals may be documented in an alternate sectionGoals may be documented in an alternate sectionGoals may be documented in an alternate sectionGoals may be documented in an alternate sectionGoals may be documented in an alternate sectionGoals may be documented in an alternate sectionGoals may be documented in an alternate sectionGoals may be documented in an alternate sectionGoals may be documented in an alternate section No data available for this sectionGoals may be documented in an alternate section No data available for this section Care Teams (unrecognized sec tion and content) Team Status: Active Member Role Status Dates Dr. Alexy Douglas MD Family Provider Active Dr. Alexy Douglas MD Primary Care Provider Active Team Status: Inactive Member Role Status Dates Dr. Alexy Douglas MD Primary Care Provider, Referring Provider Active Lovely Linda REGULATORY AFFAIRS ASSISTANT, REGULATORY AFFAIRS ASSISTANT-C Attending Provider Active Team Status: Inactive Member Role Status Dates Dr. Alexy Douglas MD Primary Care Provider Active Dr. Javier Maher MD Attending Provider, Emergency Pr ovider Active Team Status: Inactive Member Role Status Dates Dr. Alexy Douglas MD Primary Care Provider, Attending Provider Active Team Status: Inactive Member Role Status Dates Dr. Alexy Douglas MD Primary Care Provider Active Dr. Zenobia Marie DO Attending Provider, Referring P florentino Active Team Status: Inactive Member Role Status Dates Dr. Alexy Douglas MD Primary Care Provi jose, Attending Provider, Referring Provider Active Team Status: Inactive Member Role Status Dates Dr. Alexy Douglas MD Primary Care Provider, Referring Provider Active Mitali Hagen PA, PA Attending Provider Active Team Status: Active Member Role Status Dates Dr. Alexy Douglas MD Primary Care Provider Active Mitali Hagen PA, PA Other Provider Active Dr. Roosevelt Tesfaye MD Attending Provider Active Team Status: Inactive Member Role Status Dates Dr. Alexy Douglas MD Primary Care Provider Active iMtali Hagen PA, PA Attending Provider, Referr ing Provider Active Team Status: Active Member Role Status Dates Dr. Alexy Douglas MD Primary Care Provider Active Mitali Hagen PA, PA Attending Provider Active Team Status: Inactive Member Role Status Dates Dr. Alexy Douglas MD Primary Care Provider Active Mitali Hagen PA, PA Attending Provider Active Team Status: Active Member Role Status Dates Dr. Alexy Douglas MD Primary Care Provider, Attending Provider Active Team Status: Inactive Member Role Status Dates Dr. Alexy Douglas MD Primary Care Provider Active Alexy Douglas MD Attending Provider Active Team Status: Active Member Role Status Dates Dr. Alexy Douglas MD Primary Care Provider Active Mitali Hagen PA, PA Other Provider Active Dr. Roosevelt Tesfaye MD Attending Provider, Referring Pro vider Active Team Status: Active Member Role Status Dates Dr. Alexy Douglas MD Primary Care Provider Active Alexy Douglas MD Attending Provider Active Team Status: Active Member Role Status Dates Dr. Alexy Douglas MD Primary Care Provi jose, Attending Provider, Referring Provider Active Team Status: Inactive Member Role Status Dates Dr. Alexy Douglas MD Primary Care Provider Active Alexy ADKINS MD Attending Provider Active Team Status: Inactive Member Role Status Dates Dr. Alexy Douglas MD Primary Care Provider Active Dr. Zenobia Marie DO Attending Provider Active Team Status: Inactive Member Role Status Dates Dr. Alexy Douglas MD Primary Care Provider, Referring Provider Active Dr. Roosevelt Tesfaye MD Active Mitali Haegn PA, PA Attending Provider Active Team Status: Inactive Member Role Status Dates Dr. Alexy Douglas MD Primary Care Provider Active Dr. Farrah Dahl , Attending Provider, Referring Provider Active Team Status: Active Member Role Status Dates Dr. Alexy Douglas MD Primary Care Provider Active Daniel Briscoe MD Emergency Provider Active Dr. Amaury Pena , DO Admit Provider, Attending Provider Active Team Status: Active Member Role Status Dates Dr. Alexy Douglas MD Primary Care Provider Active Daniel Briscoe MD Emergency Provider Active Dr. Amaury Pena , DO Admit Provi jose, Attending Provider, Other Provider Active Team Status: Active Member Role Status Dates Dr. Alexy Douglas MD Primary Care Provider Active Daniel Briscoe MD Emergency Provider Active Dr. Amaury Pena , DO Admit Provider, Other Pro vider Active Dr. Christina Menard MD Other Provider Active Dr. Bradley Morel MD Other Provider Active Dr. Edgardo Greenwood DO Attending Provider, Other Provide r Active Dr. Tobin Medel MD Other Provider Active Dr. Ricky Clayton MD Other Provider Active Bessy Galan REGULATORY AFFAIRS ASSISTANT, REGULATORY AFFAIRS ASSISTANT-C Other Provider Active Team Status: Active Member Role Status Dates Dr. Alexy Douglas MD Primary Care Provider Active Daniel Briscoe MD Emergency Provider Active Dr. Amaury Pena , DO Admit Provider, Other Pro vider Active Dr. Christina Menard MD Other Provider Active Dr. Bradley Morel MD Other Provider Active Dr. Edgardo Greenwood , DO Other Provider Active Dr. Tobin Medel MD Other Provider Active Dr. Ricky Clayton MD Other Provider Active Bessy Galan REGULATORY AFFAIRS ASSISTANT, REGULATORY AFFAIRS ASSISTANT-C Other Provider Active Lyn Szymanski NP-C Attending Provider Active Team Status: Active Member Role Status Dates Dr. Alexy Douglas MD Primary Care Provider Active Dr. Roosevelt Tesfaye MD Attending Provider Active Team Status: Inactive Member Role Status Dates Dr. Alexy Douglas MD Primary Care Provider Active Daniel Briscoe MD Emergency Provider Active Dr. Amaury Pena , DO Admit Provider, Other Pro vider Active Dr. Christina Menard MD Attending Provider Active Dr. Bradley Morel MD Other Provider Active Dr. Edgardo Greenwood , DO Other Provider Active Dr. Tobin Medel MD Other Provider Active Dr. Ricky Clayton MD Other Provider Active Bessy Galan REGULATORY AFFAIRS ASSISTANT, REGULATORY AFFAIRS ASSISTANT-C Other Provider Active Team Status: Active Member Role Status Dates Dr. Alexy Douglas MD Primary Care Provider Active Dr. Roosevelt Tesfaye MD Attending Provider, Referring Pro vider Active Team Status: Active Member Role Status Dates Dr. Alexy Douglas MD Primary Care Provider Active Daniel Briscoe MD Emergency Provider Active Dr. Amaury Pena , Admit Provider, Other Pro vider Active Dr. Christina Menard MD Attending Provider, Other Provid er Active Dr. Bradley Morel MD Other Provider Active Dr. Edgardo Greenwood DO Other Provider Active Dr. Tobin Medel MD Other Provider Active Dr. Ricky Clayton MD Other Provider Active Bessy Galan REGULATORY AFFAIRS ASSISTANT, REGULATORY AFFAIRS ASSISTANT-C Other Provider Active Team Status: Active Member Role Status Dates Dr. Alexy Douglas MD Primary Care Provider Active Daniel Briscoe MD Emergency Provider Active Dr. Amaury Pena , Admit Provider, Other Pro vider Active Dr. Christina Menard MD Referring Provider, Other Provid er Active Dr. Bradley Morel MD Other Provider Active Dr. Edgardo Greenwood DO Attending Provider, Other Provide r Active Dr. Tobin Medel MD Other Provider Active Dr. Ricky Clayton MD Other Provider Active Bessy Galan REGULATORY AFFAIRS ASSISTANT, REGULATORY AFFAIRS ASSISTANT-C Other Provider Active Team Status: Active Member Role Status Dates Dr. Alexy Douglas MD Primary Care Provi jose, Referring Provider, Other Provider Active WILDER Sanchez Attending Provider Active Team Status: Active Member Role Status Dates Dr. Alexy Douglas MD Primary Care Provi jose, Referring Provider, Other Provider Active Mitali Hagen PA, PA Other Provider Active Lyn Szymanski NP-Murali Attending Provider Active Team Status: Inactive Member Role Status Dates Dr. Alexy Douglas MD Primary Care Provi jose, Attending Provider, Referring Provider Active Mitali Hagen PA, PA Other Provider Active Team Status: Inactive Member Role Status Dates Dr. Alexy Douglas MD Primary Care Provider Active Dr. Zenobia Marie DO Attending Provider, Referring P florentino Active Mitali Hagen PA, PA Other Provider Active Team Status: Inactive Member Role Status Dates Dr. Alexy Douglas MD Primary Care Provider, Referring Provider Active Dr. Edgardo Greenwood DO Attending Provider Active Team Status: Active Member Role Status Dates Dr. Alexy Douglas MD Primary Care Provgirma jose, Referring Provider, Other Provider Active Dr. Edgardo Greenwood DO Other Provider Active Lyn Szymanski NP-C Attending Provider Active Team Status: Inactive Member Role Status Dates Dr. Alexy Douglas MD Primary Care Provgirma jose, Attending Provider, Referring Provider Active Dr. Edgardo Greenwood DO Other Provider Active Team Status: Active Member Role Status Dates Dr. Alexy Douglas MD Primary Care Provider Active ANA JOSUE Attending Provider, Referring Provide r Active Team Status: Inactive Member Role Status Dates Dr. Alexy oDuglas MD Primary Care Provider Active ANA JOSUE Attending Provider, Referring Provide r Active Team Status: Active Member Role Status Dates Dr. Alexy Douglas MD Primary Care Provider Active Mitali Hagen PA, PA Attending Provider, Referr ing Provider Active Team Status: Inactive Member Role Status Dates Dr. Alexy Douglas MD Primary Care Provider, Referring Provider Active Bessy Galan REGULATORY AFFAIRS ASSISTANT, REGULATORY AFFAIRS ASSISTANT-C Attending Provider Active Team Status: Active Member Role Status Dates Bessy Galan REGULATORY AFFAIRS ASSISTANT, REGULATORY AFFAIRS ASSISTANT-C Referring Provider, Other Pr ovider Active Dr. Alexy Douglas MD Primary Care Provider Active Lyn Szymanski NP-C Attending Provider Active Team Status: Active Member Role Status Dates Bessy Galan REGULATORY AFFAIRS ASSISTANT, REGULATORY AFFAIRS ASSISTANT-C Referring Provider, Other Pr ovider Active Dr. Alexy Douglas MD Primary Care Provider Active Dr. Edgardo Greenwood DO Attending Provider Active Team Status: Inactive Member Role Status Dates Bessy Galan REGULATORY AFFAIRS ASSISTANT, REGULATORY AFFAIRS ASSISTANT-C Attending Provider, Referrin g Provider Active Dr. Alexy Douglas MD Primary Care Provider Active Team Status: Active Member Role Status Dates Dr. Alexy Douglas MD Primary Care Provider Active Dr. Zenobia Marie DO Attending Provider Active Team Status: Active Member Role Status Dates Dr. Alexy Douglas MD Primary Care Provider Active Team Status: Inactive Member Role Status Dates Dr. Alexy Douglas MD Primary Care Provider Active Start: March 16, 2024 End: March 18, 2024 Dr. Javier Sanchez DO Emergency Provider Active Start: March 16, 2024 End: March 18, 2024 Dr. Vidal Campbell DO Admit Provider Active Star t: March 16, 2024 End: March 18, 2024 Dr. Vidal Campbell DO Other Provider Active Star t: March 16, 2024 End: March 18, 2024 Dr. Amaury Pena DO Attending Provider Active Start: March 16, 2024 End: March 18, 2024 Team Status: Active Member Role Status Dates Dr. Alexy Douglas MD Primary Care Provider Active Start: March 16, 2024 Dr. Javier Sanchez DO Emergency Provider Active Start: March 16, 2024 Dr. Vidal Campbell DO Attending Provider Active Start: March 16, 2024 Team Status: Active Member Role Status Dates Dr. Alexy Douglas MD Primary Care Provider Active Start: March 17, 2024 Dr. Javier Sanchez DO Emergency Provider Active Start: March 17, 2024 Dr. Vidal Campbell , Admit Provider Active Star t: March 17, 2024 Dr. Vidal Campbell DO Other Provider Active Star t: March 17, 2024 Dr. Amaury Pena DO Attending Provider Active Start: March 17, 2024 Dr. Amaury Pena DO Other Provider Active Start: March 17, 2024 Team Status: Active Member Role Status Dates Dr. Alexy Douglas MD Primary Care Provider Active Start: March 18, 2024 Dr. Javier Sanchez DO Emergency Provider Active Start: March 18, 2024 Dr. Vidal Campbell DO Admit Provider Active Star t: March 18, 2024 Dr. Vidal Campbell DO Other Provider Active Star t: March 18, 2024 Dr. Amaury Pena DO Attending Provider Active Start: March 18, 2024 Dr. Amaury Pena DO Other Provider Active Start: March 18, 2024 Team Status: Inactive Member Role Status Dates Dr. Alexy Douglas MD Primary Care Provider Active Start: March 31, 2024 End: March 31, 2024 Dr. Alexy Douglas MD Attending Provider Active Start: March 31, 2024 End: March 31, 2024 Team Status: Inactive Member Role Status Dates Dr. Alexy Douglas MD Primary Care Provider Active Start: April 01, 2024 End: April 01, 2024 Dr. Alexy Douglas MD Attending Provider Active Start: April 01, 2024 End: April 01, 2024 Dr. Alexy Douglas MD Referring Provider Active Start: April 01, 2024 End: April 01, 2024 Team Status: Inactive Member Role Status Dates Dr. Alexy Douglas MD Primary Care Provider Active Start: April 01, 2024 End: April 01, 2024 Dr. Alexy Douglas MD Referring Provider Active Start: April 01, 2024 End: April 01, 2024 Bessy Galan REGULATORY AFFAIRS ASSISTANT, REGULATORY AFFAIRS ASSISTANT-C Attending Provider Active Start: April 01, 2024 End: April 01, 2024 Team Status: Inactive Member Role Status Dates Dr. Alexy Douglas MD Primary Care Provider Active Start: April 05, 2024 End: April 07, 2024 Dr. Benny Vann MD Emergency Provider Active Sta rt: April 05, 2024 End: April 07, 2024 Dr. Raul Busby MD Admit Provider Active Sta rt: April 05, 2024 End: April 07, 2024 Dr. Raul Busby MD Attending Provider Active Start: April 05, 2024 End: April 07, 2024 Team Status: Active Member Role Status Dates Dr. Alexy Douglas MD Primary Care Provider Active Start: April 05, 2024 Dr. Benny Vann MD Emergency Provider Active Sta rt: April 05, 2024 Dr. Raul Busby MD Admit Provider Active Sta rt: April 05, 2024 Dr. Raul Busby MD Attending Provider Active Start: April 05, 2024 Dr. Raul Busby MD Other Provider Active Sta rt: April 05, 2024 Team Status: Active Member Role Status Dates Dr. Alexy Douglas MD Primary Care Provider Active Start: April 06, 2024 Dr. Benny Vann MD Emergency Provider Active Sta rt: April 06, 2024 Dr. Raul Busby MD Admit Provider Active Sta rt: April 06, 2024 Dr. Raul Busby MD Attending Provider Active Start: April 06, 2024 Dr. Raul Busby MD Other Provider Active Sta rt: April 06, 2024 Team Status: Active Member Role Status Dates Dr. Alexy Douglas MD Primary Care Provider Active Start: April 07, 2024 Dr. Benny Vann MD Emergency Provider Active Sta rt: April 07, 2024 Dr. Raul Busby MD Admit Provider Active Sta rt: April 07, 2024 Dr. Raul Busby MD Attending Provider Active Start: April 07, 2024 Dr. Raul Busby MD Other Provider Active Sta rt: April 07, 2024 Team Status: Inactive Member Role Status Dates Dr. Alexy Douglas MD Primary Care Provider Active Start: April 13, 2024 End: April 13, 2024 Dr. Alexy Douglas MD Attending Provider Active Start: April 13, 2024 End: April 13, 2024 Team Status: Inactive Member Role Status Dates Dr. Alexy Douglas MD Primary Care Provider Active Start: April 20, 2024 End: April 20, 2024 Bessy Galan REGULATORY AFFAIRS ASSISTANT, REGULATORY AFFAIRS ASSISTANT-C Attending Provider Active Start: April 20, 2024 End: April 20, 2024 Bessy Galan REGULATORY AFFAIRS ASSISTANT, REGULATORY AFFAIRS ASSISTANT-C Referring Provider Active Start: April 20, 2024 End: April 20, 2024 Team Status: Inactive Member Role Status Dates Dr. Alexy Douglas MD Primary Care Provider Active Start: April 22, 2024 End: April 22, 2024 Dr. Alexy Douglas MD Attending Provider Active Start: April 22, 2024 End: April 22, 2024 Team Status: Inactive Member Role Status Dates Dr. Alexy Douglas MD Primary Care Provider Active Start: April 24, 2024 End: April 24, 2024 Bessy Galan REGULATORY AFFAIRS ASSISTANT, REGULATORY AFFAIRS ASSISTANT-C Attending Provider Active Start: April 24, 2024 End: April 24, 2024 Bessy Galan REGULATORY AFFAIRS ASSISTANT, REGULATORY AFFAIRS ASSISTANT-C Referring Provider Active Start: April 24, 2024 End: April 24, 2024 Team Status: Inactive Member Role Status Dates Dr. Alexy Douglas MD Primary Care Provider Active Start: April 25, 2024 End: April 28, 2024 Daniel Briscoe MD Emergency Provider Active Star t: April 25, 2024 End: April 28, 2024 Dr. Liz Griffin MD Admit Provider Active St art: April 25, 2024 End: April 28, 2024 Dr. Liz Griffin MD Other Provider Active St art: April 25, 2024 End: April 28, 2024 Dr. Ephraim Oneil MD Attending Provider Active Start: April 25, 2024 End: April 28, 2024 Dr. Martin Davies MD Other Provider Active Star t: April 25, 2024 End: April 28, 2024 Team Status: Active Member Role Status Dates Dr. Alexy Douglas MD Primary Care Provider Active Start: April 26, 2024 End: April 26, 2024 Dr. Farrah Malone MD Attending Provider Active Start: April 26, 2024 End: April 26, 2024 Dr. Farrah Malone MD Referring Provider Active Start: April 26, 2024 End: April 26, 2024 Team Status: Active Member Role Status Dates Dr. Alexy Douglas MD Primary Care Provider Active Start: April 26, 2024 Daniel Briscoe MD Emergency Provider Active Star t: April 26, 2024 Dr. Liz Griffin MD Admit Provider Active St art: April 26, 2024 Dr. Liz Griffin MD Other Provider Active St art: April 26, 2024 Dr. Martin Davies MD Attending Provider Active Start: April 26, 2024 Dr. Martin Davies MD Other Provider Active Star t: April 26, 2024 Team Status: Active Member Role Status Dates Dr. Alexy Douglas MD Primary Care Provider Active Start: April 27, 2024 Daniel Briscoe MD Emergency Provider Active Star t: April 27, 2024 Dr. Liz Griffin MD Admit Provider Active St art: April 27, 2024 Dr. Liz Griffin MD Other Provider Active St art: April 27, 2024 Dr. Ephraim Oneil MD Attending Provider Active Start: April 27, 2024 Dr. Ephraim Oneil MD Other Provider Active Start: April 27, 2024 Dr. Martin Davies MD Other Provider Active Star t: April 27, 2024 Team Status: Active Member Role Status Dates Dr. Alexy Douglas MD Primary Care Provider Active Start: April 28, 2024 Daniel Briscoe MD Emergency Provider Active Star t: April 28, 2024 Dr. Liz Griffin MD Admit Provider Active St art: April 28, 2024 Dr. Liz Griffin MD Other Provider Active St art: April 28, 2024 Dr. Ephraim Oneil MD Attending Provider Active Start: April 28, 2024 Dr. Ephraim Oneil MD Other Provider Active Start: April 28, 2024 Dr. Martin Davies MD Other Provider Active Star t: April 28, 2024 Team Status: Inactive Member Role Status Dates Dr. Alexy Douglas MD Primary Care Provider Active Start: May 14, 2024 End: May 14, 2024 Chad Woodard REGULATORY AFFAIRS ASSISTANT, REGULATORY AFFAIRS ASSISTANT-C Attending Provider Active S tart: May 14, 2024 End: May 14, 2024 Chad Woodard REGULATORY AFFAIRS ASSISTANT, REGULATORY AFFAIRS ASSISTANT-C Referring Provider Active S tart: May 14, 2024 End: May 14, 2024 Team Status: Inactive Member Role Status Dates Dr. Alexy Douglas MD Primary Care Provider Active Start: May 14, 2024 End: May 14, 2024 Dr. Alexy Douglas MD Referring Provider Active Start: May 14, 2024 End: May 14, 2024 Chad Woodard REGULATORY AFFAIRS ASSISTANT, REGULATORY AFFAIRS ASSISTANT-C Attending Provider Active S tart: May 14, 2024 End: May 14, 2024 Team Status: Inactive Member Role Status Dates Dr. Alexy Douglas MD Primary Care Provider Active Start: June 26, 2024 End: June 26, 2024 Dr. Alexy Douglas MD Referring Provider Active Start: June 26, 2024 End: June 26, 2024 Lovely Linda REGULATORY AFFAIRS ASSISTANT, REGULATORY AFFAIRS ASSISTANT-C Attending Provider Active Start: June 26, 2024 End: June 26, 2024 Team Status: Inactive Member Role Status Dates Dr. Alexy Douglas MD Primary Care Provider Active Start: June 29, 2024 End: June 29, 2024 Dr. Roosevelt Tesfaye MD Attending Provider Active S tart: June 29, 2024 End: June 29, 2024 Dr. Roosevelt Tesfaye MD Referring Provider Active S tart: June 29, 2024 End: June 29, 2024 Team Status: Active Member Role Status Dates Dr. Alexy Douglas MD Primary Care Provider Active Start: June 30, 2024 Dr. Tres Cronin MD Emergency Provider Active Start: June 30, 2024 Dr. Liz Griffin MD Attending Provider Active Start: June 30, 2024 Team Status: Active Member Role Status Dates Dr. Alexy Douglas MD Primary Care Provider Active Start: June 30, 2024 Dr. Tres Cronin MD Emergency Provider Active Start: June 30, 2024 Dr. Liz Griffin MD Admit Provider Active St art: June 30, 2024 Dr. Liz Griffin MD Attending Provider Active Start: June 30, 2024 Team Status: Inactive Member Role Status Dates Dr. Alexy Douglas MD Primary Care Provider Active Start: June 30, 2024 End: July 06, 2024 Dr. Tres Cronin MD Emergency Provider Active Start: June 30, 2024 End: July 06, 2024 Dr. Liz Griffin MD Admit Provider Active St art: June 30, 2024 End: July 06, 2024 Dr. Liz Griffin MD Other Provider Active St art: June 30, 2024 End: July 06, 2024 Dr. Farrah Malone MD Other Provider Active St art: June 30, 2024 End: July 06, 2024 Dr. Nato Presley MD Other Provider Active St art: June 30, 2024 End: July 06, 2024 Dr. Bebeto Corado MD Other Provider Active Start: June 30, 2024 End: July 06, 2024 Dr. Jabari Hobbs DO Attending Provider Active Start: June 30, 2024 End: July 06, 2024 Dr. Oksana Coon MD Other Provider Active St art: June 30, 2024 End: July 06, 2024 Team Status: Active Member Role Status Dates Dr. Alexy Douglas MD Primary Care Provider Active Start: July 01, 2024 Dr. Roosevelt Tesfaye MD Attending Provider Active S tart: July 01, 2024 Team Status: Active Member Role Status Dates Dr. Alexy Douglas MD Primary Care Provider Active Start: July 01, 2024 Dr. Tres Cronin MD Emergency Provider Active Start: July 01, 2024 Dr. Liz Griffin MD Admit Provider Active St art: July 01, 2024 Dr. Liz Griffin MD Other Provider Active St art: July 01, 2024 Dr. Farrah Malone MD Other Provider Active St art: July 01, 2024 Dr. Logan John MD Other Provider Active Start: July 01, 2024 Dr. Rock Lott MD Other Provider Active Start: July 01, 2024 Dr. Bradley Morel MD Other Provider Active Star t: July 01, 2024 Dr. Edgardo Greenwood DO Attending Provider Active S tart: July 01, 2024 Dr. Edgardo Greenwood DO Other Provider Active Start : July 01, 2024 Dr. Martin Echeverria MD Other Provider Active Sta rt: July 01, 2024 Dr. Niels Angulo MD Other Provider Active St art: July 01, 2024 Dr. Jonathan Bullock MD Other Provider Active S tart: July 01, 2024 Dr. Angela Whitman MD Other Provider Active Start: July 01, 2024 Dr. Rupert Farias MD Other Provider Active Start : July 01, 2024 Dr. Manuelito Scott MD Other Provider Active Start: July 01, 2024 Dr. Hermelindo Oliver MD Other Provider Active Start : July 01, 2024 Dr. Mely Upton MD Other Provider Active Star t: July 01, 2024 Dr. Tobin Medel MD Other Provider Active Sta rt: July 01, 2024 Dr. Caitlin Perea MD Other Provider Active Sta rt: July 01, 2024 Dr. Hi Vega MD Other Provider Active Star t: July 01, 2024 Dr. Dnenis Ulrich MD Other Provider Active St art: July 01, 2024 Dr. Anthony Post MD Other Provider Active Star t: July 01, 2024 Dr. Marc Mancuso DO Other Provider Active St art: July 01, 2024 Dr. Maria Fernanda Sanders MD Other Provider Active Start: July 01, 2024 Dr. Merry Rosario MD Other Provider Active St art: July 01, 2024 Dr. Nixon Kahn DO Other Provider Active Start: July 01, 2024 Dr. Rusty Tran MD Other Provider Active Star t: July 01, 2024 Dr. Ayad Lewis MD Other Provider Active Sta rt: July 01, 2024 Dr. Oksana Coon MD Referring Provider Active Start: July 01, 2024 Dr. Oksana Coon MD Other Provider Active St art: July 01, 2024 Team Status: Active Member Role Status Dates Dr. Alexy Douglas MD Primary Care Provider Active Start: July 01, 2024 Dr. Tres Cronin MD Emergency Provider Active Start: July 01, 2024 Dr. Liz Griffin MD Admit Provider Active St art: July 01, 2024 Dr. Liz Griffin MD Other Provider Active St art: July 01, 2024 Dr. Farrah Malone MD Attending Provider Active Start: July 01, 2024 Dr. Farrah Malone MD Other Provider Active St art: July 01, 2024 Dr. Logan John MD Other Provider Active Start: July 01, 2024 Dr. Rock Lott MD Other Provider Active Start: July 01, 2024 Dr. Bradley Morel MD Other Provider Active Star t: July 01, 2024 Dr. Edgardo Greenwood DO Other Provider Active Start : July 01, 2024 Dr. Martin Echeverria MD Other Provider Active Sta rt: July 01, 2024 Dr. Niels Angulo MD Other Provider Active St art: July 01, 2024 Dr. Jonathan Bullock MD Other Provider Active S tart: July 01, 2024 Dr. Angela Whitman MD Other Provider Active Start: July 01, 2024 Dr. Rupert Farias MD Other Provider Active Start : July 01, 2024 Dr. Manuelito Scott MD Other Provider Active Start: July 01, 2024 Dr. Hermelindo Oliver MD Other Provider Active Start : July 01, 2024 Dr. Mely Upton MD Other Provider Active Star t: July 01, 2024 Dr. Tobin Medel MD Other Provider Active Sta rt: July 01, 2024 Dr. Caitlin Perea MD Other Provider Active Sta rt: July 01, 2024 Dr. Hi Vega MD Other Provider Active Star t: July 01, 2024 Dr. Dennis Ulrich MD Other Provider Active St art: July 01, 2024 Dr. Anthony Post MD Other Provider Active Star t: July 01, 2024 Dr. Marc Mancuso DO Other Provider Active St art: July 01, 2024 Dr. Maria Fernanda Sanders MD Other Provider Active Start: July 01, 2024 Dr. Merry Rosario MD Other Provider Active St art: July 01, 2024 Dr. Nixon Kahn DO Other Provider Active Start: July 01, 2024 Dr. Rusty Tran MD Other Provider Active Star t: July 01, 2024 Dr. Ayad Lewis MD Other Provider Active Sta rt: July 01, 2024 Dr. Oksana Coon MD Other Provider Active St art: July 01, 2024 Team Status: Active Member Role Status Dates Dr. Alexy Douglas MD Primary Care Provider Active Start: July 01, 2024 Dr. Vidal Almonte MD Attending Provider Active S tart: July 01, 2024 Dr. Oksana Coon MD Referring Provider Active Start: July 01, 2024 Team Status: Active Member Role Status Dates Dr. Alexy Douglas MD Primary Care Provider Active Start: July 01, 2024 Dr. Tres Cronin MD Emergency Provider Active Start: July 01, 2024 Dr. Liz Griffin MD Admit Provider Active St art: July 01, 2024 Dr. Liz Griffin MD Other Provider Active St art: July 01, 2024 Dr. Farrah Malone MD Other Provider Active St art: July 01, 2024 Dr. Logan John MD Other Provider Active Start: July 01, 2024 Dr. Rock Lott MD Other Provider Active Start: July 01, 2024 Dr. Bradley Morel MD Other Provider Active Star t: July 01, 2024 Dr. Edgardo Greenwood DO Other Provider Active Start : July 01, 2024 Dr. Martin Echeverria MD Other Provider Active Sta rt: July 01, 2024 Dr. Niels Angulo MD Other Provider Active St art: July 01, 2024 Dr. Jonathan Bullock MD Other Provider Active S tart: July 01, 2024 Dr. Angela Whitman MD Other Provider Active Start: July 01, 2024 Dr. Rupert Farias MD Other Provider Active Start : July 01, 2024 Dr. Manuelito Scott MD Other Provider Active Start: July 01, 2024 Dr. Hermelindo Oliver MD Other Provider Active Start : July 01, 2024 Dr. Mely Upton MD Other Provider Active Star t: July 01, 2024 Dr. Tboin Medel MD Other Provider Active Sta rt: July 01, 2024 Dr. Caitlin Perea MD Other Provider Active Sta rt: July 01, 2024 Dr. Hi Vega MD Other Provider Active Star t: July 01, 2024 Dr. Dennis Ulrich MD Other Provider Active St art: July 01, 2024 Dr. Anthony Post MD Other Provider Active Star t: July 01, 2024 Dr. Marc Mancuso DO Other Provider Active St art: July 01, 2024 Dr. Maria Fernanda Sanders MD Other Provider Active Start: July 01, 2024 Dr. Merry Rosario MD Other Provider Active St art: July 01, 2024 Dr. Nixon Kahn DO Other Provider Active Start: July 01, 2024 Dr. Rusty Tran MD Other Provider Active Star t: July 01, 2024 Dr. Ayad Lewis MD Other Provider Active Sta rt: July 01, 2024 Dr. Oksana Coon MD Other Provider Active St art: July 01, 2024 Dr. Nato Presley MD Attending Provider Active Start: July 01, 2024 Dr. Nato Presley MD Other Provider Active St art: July 01, 2024 Dr. Jabari Hobbs DO Referring Provider Active Start: July 01, 2024 Team Status: Active Member Role Status Dates Dr. Alexy Douglas MD Primary Care Provider Active Start: July 01, 2024 Dr. Tres Cronin MD Emergency Provider Active Start: July 01, 2024 Dr. Liz Griffin MD Admit Provider Active St art: July 01, 2024 Dr. Liz Griffin MD Other Provider Active St art: July 01, 2024 Dr. Farrah Malone MD Other Provider Active St art: July 01, 2024 Dr. Logan John MD Other Provider Active Start: July 01, 2024 Dr. Rock Lott MD Other Provider Active Start: July 01, 2024 Dr. Bradley Morel MD Other Provider Active Star t: July 01, 2024 Dr. Edgardo Greenwood DO Other Provider Active Start : July 01, 2024 Dr. Martin Echeverria MD Other Provider Active Sta rt: July 01, 2024 Dr. Niels Angulo MD Other Provider Active St art: July 01, 2024 Dr. Jonathan Bullock MD Other Provider Active S tart: July 01, 2024 Dr. Angela Whitman MD Other Provider Active Start: July 01, 2024 Dr. Rupert Farias MD Other Provider Active Start : July 01, 2024 Dr. Manuelito Scott MD Other Provider Active Start: July 01, 2024 Dr. Hermelindo Oliver MD Other Provider Active Start : July 01, 2024 Dr. Mely Upton MD Other Provider Active Star t: July 01, 2024 Dr. Tobin Medel MD Other Provider Active Sta rt: July 01, 2024 Dr. Caitlin Perea MD Other Provider Active Sta rt: July 01, 2024 Dr. Hi Vega MD Other Provider Active Star t: July 01, 2024 Dr. Dennis Ulrich MD Other Provider Active St art: July 01, 2024 Dr. Anthony Post MD Other Provider Active Star t: July 01, 2024 Dr. Marc Mancuso DO Other Provider Active St art: July 01, 2024 Dr. Maria Fernanda Sanders MD Other Provider Active Start: July 01, 2024 Dr. Merry Rosario MD Other Provider Active St art: July 01, 2024 Dr. Nixon Kahn DO Other Provider Active Start: July 01, 2024 Dr. Rusty Tran MD Other Provider Active Star t: July 01, 2024 Dr. Ayad Lewis MD Other Provider Active Sta rt: July 01, 2024 Dr. Oksana Coon MD Attending Provider Active Start: July 01, 2024 Dr. Oksana Coon MD Other Provider Active St art: July 01, 2024 Dr. Nato Presley MD Other Provider Active St art: July 01, 2024 Team Status: Active Member Role Status Dates Dr. Alexy Douglas MD Primary Care Provider Active Start: July 02, 2024 Dr. Tres Cronin MD Emergency Provider Active Start: July 02, 2024 Dr. Liz Griffin MD Admit Provider Active St art: July 02, 2024 Dr. Liz Griffin MD Other Provider Active St art: July 02, 2024 Dr. Farrah Malone MD Other Provider Active St art: July 02, 2024 Dr. Logan John MD Other Provider Active Start: July 02, 2024 Dr. Rock Lott MD Other Provider Active Start: July 02, 2024 Dr. Bradley Morel MD Other Provider Active Star t: July 02, 2024 Dr. Edgardo Greenwood DO Attending Provider Active S tart: July 02, 2024 Dr. Edgardo Greenwood DO Other Provider Active Start : July 02, 2024 Dr. Martin Echeverria MD Other Provider Active Sta rt: July 02, 2024 Dr. Niels Angulo MD Other Provider Active St art: July 02, 2024 Dr. Jonathan Bullock MD Other Provider Active S tart: July 02, 2024 Dr. Angela Whitman MD Other Provider Active Start: July 02, 2024 Dr. Rupert Farias MD Other Provider Active Start : July 02, 2024 Dr. Manuelito Scott MD Other Provider Active Start: July 02, 2024 Dr. Hermelindo Oliver MD Other Provider Active Start : July 02, 2024 Dr. Mely Upton MD Other Provider Active Star t: July 02, 2024 Dr. Tobin Medel MD Other Provider Active Sta rt: July 02, 2024 Dr. Caitlin Perea MD Other Provider Active Sta rt: July 02, 2024 Dr. Hi Vega MD Other Provider Active Star t: July 02, 2024 Dr. Dennis Ulrich MD Other Provider Active St art: July 02, 2024 Dr. Anthony Post MD Other Provider Active Star t: July 02, 2024 Dr. Marc Mancuso DO Other Provider Active St art: July 02, 2024 Dr. Maria Fernanda Sanders MD Other Provider Active Start: July 02, 2024 Dr. Merry Rosario MD Other Provider Active St art: July 02, 2024 Dr. Nixon Kahn DO Other Provider Active Start: July 02, 2024 Dr. Rusty Tran MD Other Provider Active Star t: July 02, 2024 Dr. Ayad Lewis MD Other Provider Active Sta rt: July 02, 2024 Dr. Oksana Coon MD Referring Provider Active Start: July 02, 2024 Dr. Oksana Coon MD Other Provider Active St art: July 02, 2024 Dr. Nato Presley MD Other Provider Active St art: July 02, 2024 Dr. Bebeto Corado MD Other Provider Active Start: July 02, 2024 Team Status: Active Member Role Status Dates Dr. Alexy Douglas MD Primary Care Provider Active Start: July 02, 2024 Dr. Tres Cronin MD Emergency Provider Active Start: July 02, 2024 Dr. Liz Griffin MD Admit Provider Active St art: July 02, 2024 Dr. Liz Griffin MD Other Provider Active St art: July 02, 2024 Dr. Farrah Malone MD Attending Provider Active Start: July 02, 2024 Dr. Farrah Malone MD Other Provider Active St art: July 02, 2024 Dr. Logan John MD Other Provider Active Start: July 02, 2024 Dr. Rock Lott MD Other Provider Active Start: July 02, 2024 Dr. Bradley Morel MD Other Provider Active Star t: July 02, 2024 Dr. Edgardo Greenwood DO Other Provider Active Start : July 02, 2024 Dr. Martin Echeverria MD Other Provider Active Sta rt: July 02, 2024 Dr. Niels Angulo MD Other Provider Active St art: July 02, 2024 Dr. Jonathan Bullock MD Other Provider Active S tart: July 02, 2024 Dr. Angela Whitman MD Other Provider Active Start: July 02, 2024 Dr. Rupert Farias MD Other Provider Active Start : July 02, 2024 Dr. Manuelito Scott MD Other Provider Active Start: July 02, 2024 Dr. Hermelindo Oliver MD Other Provider Active Start : July 02, 2024 Dr. Mely Upton MD Other Provider Active Star t: July 02, 2024 Dr. Tobin Medel MD Other Provider Active Sta rt: July 02, 2024 Dr. Caitlin Perea MD Other Provider Active Sta rt: July 02, 2024 Dr. Hi Vega MD Other Provider Active Star t: July 02, 2024 Dr. Dennis Ulrich MD Other Provider Active St art: July 02, 2024 Dr. Anthony Post MD Other Provider Active Star t: July 02, 2024 Dr. Marc Mancuso DO Other Provider Active St art: July 02, 2024 Dr. Maria Fernanda Sanders MD Other Provider Active Start: July 02, 2024 Dr. Merry Rosario MD Other Provider Active St art: July 02, 2024 Dr. Nixon Kahn DO Other Provider Active Start: July 02, 2024 Dr. Rusty Tran MD Other Provider Active Star t: July 02, 2024 Dr. Ayad Lewis MD Other Provider Active Sta rt: July 02, 2024 Dr. Oksana Coon MD Other Provider Active St art: July 02, 2024 Dr. Nato Presley MD Other Provider Active St art: July 02, 2024 Dr. Bebeto Corado MD Other Provider Active Start: July 02, 2024 Team Status: Active Member Role Status Dates Dr. Alexy Douglas MD Primary Care Provider Active Start: July 02, 2024 Dr. Tres Cronin MD Emergency Provider Active Start: July 02, 2024 Dr. Liz Griffin MD Admit Provider Active St art: July 02, 2024 Dr. Liz Griffin MD Other Provider Active St art: July 02, 2024 Dr. Farrah Malone MD Other Provider Active St art: July 02, 2024 Dr. Logan John MD Other Provider Active Start: July 02, 2024 Dr. Rcok Lott MD Other Provider Active Start: July 02, 2024 Dr. Bradley Morel MD Other Provider Active Star t: July 02, 2024 Dr. Edgardo Greenwood DO Other Provider Active Start : July 02, 2024 Dr. Martin Echeverria MD Other Provider Active Sta rt: July 02, 2024 Dr. Niels Angulo MD Other Provider Active St art: July 02, 2024 Dr. Jonathan Bullock MD Other Provider Active S tart: July 02, 2024 Dr. Angela Whitman MD Other Provider Active Start: July 02, 2024 Dr. Rupert Farias MD Other Provider Active Start : July 02, 2024 Dr. Manuelito Scott MD Other Provider Active Start: July 02, 2024 Dr. Hermelindo Oliver MD Other Provider Active Start : July 02, 2024 Dr. Mely Upton MD Other Provider Active Star t: July 02, 2024 Dr. Tobin Medel MD Other Provider Active Sta rt: July 02, 2024 Dr. Caitlin Perea MD Other Provider Active Sta rt: July 02, 2024 Dr. Hi Vega MD Other Provider Active Star t: July 02, 2024 Dr. Dennis Ulrich MD Other Provider Active St art: July 02, 2024 Dr. Anthony Post MD Other Provider Active Star t: July 02, 2024 Dr. Marc Mancuso DO Other Provider Active St art: July 02, 2024 Dr. Maria Fernanda Sanders MD Other Provider Active Start: July 02, 2024 Dr. Merry Rosario MD Other Provider Active St art: July 02, 2024 Dr. Nixon Kahn DO Other Provider Active Start: July 02, 2024 Dr. Rusty Tran MD Other Provider Active Star t: July 02, 2024 Dr. Ayad Lewis MD Other Provider Active Sta rt: July 02, 2024 Dr. Oksana Coon MD Other Provider Active St art: July 02, 2024 Dr. Nato Presley MD Other Provider Active St art: July 02, 2024 Dr. Bebeto Corado MD Other Provider Active Start: July 02, 2024 KELLEY MacdonaldC Attending Provider Active Start: July 02, 2024 Team Status: Active Member Role Status Dates Dr. Alexy Douglas MD Primary Care Provider Active Start: July 02, 2024 Dr. Tres Cronin MD Emergency Provider Active Start: July 02, 2024 Dr. Liz Griffin MD Admit Provider Active St art: July 02, 2024 Dr. Liz Griffin MD Other Provider Active St art: July 02, 2024 Dr. Farrah Malone MD Other Provider Active St art: July 02, 2024 Dr. Oksana Coon MD Attending Provider Active Start: July 02, 2024 Dr. Oksana Coon MD Other Provider Active St art: July 02, 2024 Dr. Nato Presley MD Other Provider Active St art: July 02, 2024 Dr. Bebeto Corado MD Other Provider Active Start: July 02, 2024 Team Status: Active Member Role Status Dates Dr. Alexy Douglas MD Primary Care Provider Active Start: July 03, 2024 Dr. Tres Cronin MD Emergency Provider Active Start: July 03, 2024 Dr. Liz Griffin MD Admit Provider Active St art: July 03, 2024 Dr. Liz Griffin MD Other Provider Active St art: July 03, 2024 Dr. Oksana Coon MD Other Provider Active St art: July 03, 2024 Dr. Farrah Malone MD Other Provider Active St art: July 03, 2024 Dr. Nato Presley MD Other Provider Active St art: July 03, 2024 Dr. Bebeto Corado MD Other Provider Active Start: July 03, 2024 Dr. Lukas Nix MD Attending Provider Active Start: July 03, 2024 Team Status: Active Member Role Status Dates Dr. Alexy Douglas MD Primary Care Provider Active Start: July 03, 2024 Dr. Tres Cronin MD Emergency Provider Active Start: July 03, 2024 Dr. Liz Griffin MD Admit Provider Active St art: July 03, 2024 Dr. Liz Griffin MD Other Provider Active St art: July 03, 2024 Dr. Oksana Coon MD Attending Provider Active Start: July 03, 2024 Dr. Oksana Coon MD Other Provider Active St art: July 03, 2024 Dr. Farrah Malone MD Other Provider Active St art: July 03, 2024 Dr. Nato Presley MD Other Provider Active St art: July 03, 2024 Dr. Bebeto Corado MD Other Provider Active Start: July 03, 2024 Team Status: Active Member Role Status Dates Dr. Alexy Douglas MD Primary Care Provider Active Start: July 04, 2024 Dr. Tres Cronin MD Emergency Provider Active Start: July 04, 2024 Dr. Liz Griffin MD Admit Provider Active St art: July 04, 2024 Dr. Liz Griffin MD Other Provider Active St art: July 04, 2024 Dr. Oksana Coon MD Other Provider Active St art: July 04, 2024 Dr. Farrah Malone MD Other Provider Active St art: July 04, 2024 Dr. Nato Presley MD Other Provider Active St art: July 04, 2024 Dr. Bebeto Corado MD Other Provider Active Start: July 04, 2024 Dr. Lukas Nix MD Attending Provider Active Start: July 04, 2024 Team Status: Active Member Role Status Dates Dr. Alexy Douglas MD Primary Care Provider Active Start: July 04, 2024 Dr. Tres Cronin MD Emergency Provider Active Start: July 04, 2024 Dr. Liz Griffin MD Admit Provider Active St art: July 04, 2024 Dr. Liz Griffin MD Other Provider Active St art: July 04, 2024 Dr. Oksana Coon MD Attending Provider Active Start: July 04, 2024 Dr. Oksana Coon MD Other Provider Active St art: July 04, 2024 Dr. Farrah Malone MD Other Provider Active St art: July 04, 2024 Dr. Nato Presley MD Other Provider Active St art: July 04, 2024 Dr. Bebeto Corado MD Other Provider Active Start: July 04, 2024 Team Status: Active Member Role Status Dates Dr. Alexy Douglas MD Primary Care Provider Active Start: July 05, 2024 Dr. Tres Cronin MD Emergency Provider Active Start: July 05, 2024 Dr. Liz Griffin MD Admit Provider Active St art: July 05, 2024 Dr. Liz Griffin MD Other Provider Active St art: July 05, 2024 Dr. Oksana Coon MD Other Provider Active St art: July 05, 2024 Dr. Farrah Malone MD Other Provider Active St art: July 05, 2024 Dr. Nato Presley MD Other Provider Active St art: July 05, 2024 Dr. Bebeto Corado MD Other Provider Active Start: July 05, 2024 Dr. Lukas Nix MD Attending Provider Active Start: July 05, 2024 Team Status: Active Member Role Status Dates Dr. Alexy Douglas MD Primary Care Provider Active Start: July 05, 2024 Dr. Tres Cronin MD Emergency Provider Active Start: July 05, 2024 Dr. Liz Griffin MD Admit Provider Active St art: July 05, 2024 Dr. Liz Griffin MD Other Provider Active St art: July 05, 2024 Dr. Oksana Coon MD Attending Provider Active Start: July 05, 2024 Dr. Oksana Coon MD Other Provider Active St art: July 05, 2024 Dr. Farrah Malone MD Other Provider Active St art: July 05, 2024 Dr. Nato Presley MD Other Provider Active St art: July 05, 2024 Dr. Bebeto Corado MD Other Provider Active Start: July 05, 2024 Team Status: Active Member Role Status Dates Dr. Alexy Douglas MD Primary Care Provider Active Start: July 06, 2024 Dr. Tres Cronin MD Emergency Provider Active Start: July 06, 2024 Dr. Liz Griffin MD Admit Provider Active St art: July 06, 2024 Dr. Liz Griffin MD Other Provider Active St art: July 06, 2024 Dr. Farrah Malone MD Other Provider Active St art: July 06, 2024 Dr. Nato Presley MD Other Provider Active St art: July 06, 2024 Dr. Bebeto Corado MD Other Provider Active Start: July 06, 2024 Dr. Jabari Hobbs DO Attending Provider Active Start: July 06, 2024 Dr. Jabari Hobbs DO Other Provider Active S tart: July 06, 2024 Dr. Oksana Coon MD Other Provider Active St art: July 06, 2024 Team Status: Inactive Member Role Status Dates Dr. Alexy Douglas MD Primary Care Provider Active Start: July 06, 2024 End: July 14, 2024 Dr. Alexy Douglas MD Admit Provider Active Star t: July 06, 2024 End: July 14, 2024 Dr. Alexy Douglas MD Attending Provider Active Start: July 06, 2024 End: July 14, 2024 Dr. Martin Schmitz , Other Provider Active Sta rt: July 06, 2024 End: July 14, 2024 Dr. Grace Valle MD Other Provider Active Start : July 06, 2024 End: July 14, 2024 Dr. Viry Reveles MD Other Provider Active St art: July 06, 2024 End: July 14, 2024 Trinity Fitch NP-C Other Provider Active Sta rt: July 06, 2024 End: July 14, 2024 Mar Ramirez NP, REGULATORY AFFAIRS ASSISTANT-C Other Provider Active Start: July 06, 2024 End: July 14, 2024 ASHLEY Dewey Other Provider Active Start: A pricristina 2024 End: July 14, 2024 Team Status: Inactive Member Role Status Dates Dr. Alexy Douglas MD Primary Care Provider Active Start: July 08, 2024 End: July 08, 2024 Dr. Alexy Douglas MD Attending Provider Active Start: July 08, 2024 End: July 08, 2024 Dr. Alexy Douglas MD Referring Provider Active Start: July 08, 2024 End: July 08, 2024 Team Status: Active Member Role Status Dates Dr. Gillse Milian MD Attending Provider Active Start: July 08, 2024 Dr. Alexy Douglas MD Referring Provider Active Start: July 08, 2024 Team Status: Inactive Member Role Status Dates Dr. Alexy Douglas MD Primary Care Provider Active Start: August 11, 2024 End: August 11, 2024 Dr. Viry Reveles MD Attending Provider Active Start: August 11, 2024 End: August 11, 2024 Dr. Viry Reveles MD Referring Provider Active Start: August 11, 2024 End: August 11, 2024 FOR RECORDS PERTAINING TO PATIENTS WHO ARE [...] BE BASED ON THE PRIMARY CLINICAL RECORDS. [facility] [employer] [facility]. provides no warranty or guarantee of the accuracy or completeness of information in this document.
--- NOTE | 2024-12-18 19:00 | RAD_ITS ---
PROCEDURE: ANKLE MIN 3 VIEWS; TIBIA FIBULA 2 VIEWS 12/18/2024 REASON FOR EXAM: INJURY/PAIN TECHNIQUE: Procedure Code: RADANK; RADTF Modality: DX Procedure: ANKLE MIN 3 VIEWS; TIBIA FIBULA 2 VIEWS Laterality: Right COMPARISON: Right ankle and leg radiographs 06/30/2024 FINDINGS: Acute displaced fracture of the distal fibula at the level of the tibiofibular syndesmosis. Marked widening of the medial aspect of the tibiofibular syndesmosis. The tibia is intact. Surrounding soft tissue swelling. RAD/Tibia & Fibula 2 Views IMPRESSION: 1. Acute displaced fracture of the distal fibula at the level of the tibiofibul ar syndesmosis with surrounding soft tissue swelling. 2. Syndesmotic injury indicative of ligamentous injury. Reading Location: [id number]
--- NOTE | 2024-12-18 19:00 | RAD_ITS ---
PROCEDURE: PELVIS 1 OR 2 VIEWS 12/18/2024 REASON FOR EXAM: INJURY/PAIN TECHNIQUE: Procedure Code: RADPEL Modality: DX Procedure: PELVIS 1 OR 2 VIEWS COMPARISON: None FINDINGS: Bones: Bones are diffusely demineralized. No demonstrated fracture or suspicious osseous lesion. However, hip and pelvic fractures in patients of this age can be subtle, if there is strong clinical suspicion of a fracture, recommend further evaluation with CT Joints: Age consistent hip and SI joint arthrosis without subchondral changes or ankylosis soft tissues: No suspicious soft tissue swelling or foreign body Other: RAD/Pelvis 1 or 2 Views IMPRESSION: Osteopenia with age consistent degenerative changes, no acute findings. Please see discussion above Reading Location: [id number]
[2024-12-18] MEDS: fentaNYL 100 MCG/2 ML Ampul 50 MCG IM (19:24)
--- NOTE | 2024-12-18 19:26 | ED.VIS.LOWEX ---
HPI History of Present Illness Chief Complaint: Lower Extremity Injury Informant: patient Narrative Narrative: Patient is 84-year-old female with history of lung state atrial fibrillation (on Eliquis), diastolic heart failure, end-stage COPD (on 4 L of oxygen at baseline), hyperlipidemia and hypothyroidism who currently is on hospice for her COPD/CHF presenting for injury to her right lower extremity. Patient states she tripped and fell. Does not know exactly how it happened but she sustained a large laceration to her right lower leg that was bleeding pretty profusely. Patient denies any in her head. She denies any other injuries at this time. Does live home alone. When asked why she is on hospice she states that the only way that Dr. Douglas would let her leave the hospital and she wanted to go home. Tetanus Immunization: Unknown [facility] Medical History Type 2 diabetes mellitus with hyperglycemia Iron deficiency anemia Encounter for monitoring diuretic therapy Pneumonia Nausea and vomiting Acute bronchospasm Acute exacerbation of chronic heart failure Daytime hypersomnia Chronic anticoagulation Hypoxia Pleural effusion Cellulitis of left lower leg Diabetic infection of left foot Knee pain, left Proteinuria Morbid obesity Macular degeneration Pleural effusion, left Chest pain Bacteremia Cellulitis of right leg Elevated troponin Acute on chronic diastolic (congestive) heart failure Atrial fibrillation with RVR Cellulitis of right lower leg Encephalopathy acute Sepsis Tricuspid valve insufficiency Ileus due to infection SOB (shortness of breath) (HFpEF) heart failure with preserved ejection fraction CHF (congestive heart failure) Chronic respiratory failure with hypoxia and hypercapnia Anticoagulated Asthma CHF exacerbation Congestive heart failure (CHF) IDDM (insulin dependent diabetes mellitus) Diabetes Rheumatoid arthritis On home oxygen therapy Low iron Insulin dependent diabetes mellitus Wears glasses Wears dentures Cancer History of steroid therapy History of renal disease High cholesterol Restless legs Injury of back Back pain Dietary restriction Shortness of breath on exertion History of pain when walking History of edema History of echocardiogram History of stress test Cardiology follow-up encounter History of CHF (congestive heart failure) History of atrial fibrillation Hyperlipidemia Overactive bladder Hypothyroidism Diabetes mellitus Hypertension Chronic kidney disease, stage 3b Former smoker Atrial fibrillation Hypertension Chronic anticoagulation Skin cancer, basal cell Actinic keratosis Skin lesion Skin cancer Chronic diastolic (congestive) heart failure Longstanding persistent atrial fibrillation Diastolic dysfunction Secondary pulmonary arterial hypertension Non-rheumatic tricuspid valve insufficiency Stage 2 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 Right hip pain Disc degeneration, lumbar Fatigue UTI (urinary tract infection) Hypoxia Hypersomnia COPD (chronic obstructive pulmonary disease) Obesity Tobacco dependence in remission CKD (chronic kidney disease) stage 3, GFR 30-59 ml/min Breast cancer Essential (primary) hypertension BMI 39.0-39.9,adult Erosion of bladder suspension mesh SHAKIRA (stress urinary incontinence, female) Home Medications ?Medication ?Instructions ?Recorded ?Last Taken ?Type apixaban 2.5 mg tablet (Eliquis) 2.5 mg PO BID blood thinner 08/20/23 07/06/24 09:10 History sacubitril 49 mg-valsartan 51 mg 1 tab PO BID heart 10/21/23 07/06/24 09:10 History tablet (Entresto) rosuvastatin 40 mg tablet 40 mg PO QHS cholesterol 12/02/23 04/24/24 History vibegron 75 mg tablet (Gemtesa) 75 mg PO DAILY follow up needed 04/01/24 07/06/24 09:10 History potassium chloride 20 mEq 20 meq PO DAILY hypokalemia 04/05/24 04/24/24 History tablet,extended release(part/cryst) metoprolol tartrate 100 mg tablet 100 mg PO BID heart 04/25/24 07/06/24 09:10 History levothyroxine 200 mcg tablet 200 mcg PO DAILY thyroid 05/14/24 07/06/24 History levothyroxine 50 mcg tablet 50 mcg PO DAILY THYROID 05/14/24 07/06/24 History diltiazem HCl 240 mg 240 mg PO DAILY heart #90 caps 06/05/24 07/06/24 Rx capsule,extended release 24 hr spironolactone 25 mg tablet 25 mg PO DAILY DIURETIC 06/30/24 07/06/24 09:10 History pantoprazole 40 mg tablet,delayed 40 mg PO DAILY GERD #1 TAB 07/06/24 Unknown Rx release (Protonix) sennosides 8.6 mg-docusate sodium 2 tab PO BID PRN PRN Constipation 07/06/24 Unknown Rx 50 mg tablet (Stimulant Laxative #0 tabs Plus) acetaminophen 500 mg tablet 1,000 mg (2 x 500 mg) PO Q6H PRN 07/13/24 Unknown Rx PRN Pain Score 1-3 #0 tabs furosemide 40 mg tablet 40 mg PO DAILY 30 days #30 tabs 07/13/24 Unknown Rx insulin glargine-yfgn 100 unit/mL 25 unit (0.25 mL) subcut BID 30 07/13/24 Unknown Rx (3 mL) subcutaneous pen days #15 mL insulin lispro 100 unit/mL 5 unit (0.05 mL) subcut TIDAC 30 07/13/24 Unknown Rx subcutaneous pen (Humalog KwikPen days #4.5 mL (U-100) Insulin) Allergy/AdvReac Type Severity Reaction Status Date / Time Sulfa (Sulfonamide Allergy PEELING Verified 06/26/24 14:01 Antibiotics) RASH Family History Mother Colon cancer Cancer skin, bladder Daughter Cancer Thyroid Sister CAD (coronary artery disease) Surgical History History of surgery Hx of colonoscopy Hx of right cataract extraction Hx of left cataract extraction History of excision of lesion Hx of local excision of skin lesion History of cardioversion (03/20/19) History of hysterectomy History of partial mastectomy History of left heart catheterization (05/31/14) Social History household members: none housing: house current occupational status: retired Smoking Status: Former smoker how long ago did patient quit smokin, 2p/day second hand exposure: Yes alcohol intake: current alcohol intake frequency: holidays/special occasions only substance use type: does not use ROS ROS ED Constitutional Constitutional ED: Denies chills or fever(s) Eyes Eyes: Denies blurry vision Cardiovascular Cardiovascular: Denies chest pain Respiratory/Chest Respiratory/Chest: Denies cough or dyspnea Gastrointestinal Gastrointestinal: Denies nausea or vomiting Musculoskeletal Musculoskeletal: Reports other Details: right ankle pain Integumentary Reports other Details: laceration to right ankle Hematologic/Lymphatic Hematologic/Lymphatic: Reports easy bleeding, easy bruising and other Details: On Eliquis EXAM Physical Exam Const Vital Signs: 12/18/24 17:59 12/18/24 19:00 12/18/24 20:00 Temperature 97.8 F Temperature Source Oral Pulse Rate 130 H 122 H 117 H Respiratory Rate 24 H 18 18 Blood Pressure 192/123 H 168/91 H 185/103 H Blood Pressure Mean 146 116 130 Pulse Ox 99 100 94 Oxygen Delivery Method Room Air Nasal Cannula Nasal Cannula Oxygen Flow Rate (L/min) 4 4 12/18/24 21:00 12/18/24 22:00 12/18/24 22:28 Temperature 97.6 F L Temperature Source Pulse Rate 120 H 125 H 115 H Respiratory Rate 18 18 18 Blood Pressure 178/101 H 171/115 H 171/115 H Blood Pressure Mean 126 133 133 Pulse Ox 96 99 100 Oxygen Delivery Method Nasal Cannula Nasal Cannula Oxygen Flow Rate (L/min) 4 4 Positive well nourished and well developed Constitutional Narrative: Uncomfortable secondary to pain General Appearance ED: well developed HEENT Reports moist mucous membranes normocephalic and atraumatic Neck full ROM and supple Chest Wall inspection of chest normal Resp clear to auscultation bilaterally Resp Narrative: Mildly tachypneic Cardio regular rate and regular rhythm Cardio Narrative: 2+ DP pulses present Rate: tachycardic GI non-tender and non-distended Extremity Extremity Narrative: Deformity at the right ankle with large overlying laceration extending from the medial ankle proximally and laterally. Associated tenderness to palpation. Pedal edema present Neuro oriented x3, moves all extremities and no sensory deficits noted Sensorium / Orientation: alert Motor Exam: general weakness Psych mental status grossly normal Skin Skin Narrative: Gaping full-thickness to approximately 12 cm x 2 cm laceration to the right distal ankle with of some active bleeding. No pulsatile bleeding present. MDM MDM MDM Narrative Medical decision making narrative: Patient evaluated for injury to her right lower extremity. She has a large bleeding wound and what feels like an unstable ankle but no obvious deformity. Differential includes dislocation, tibia or fibula fracture, open fracture, acute blood loss anemia. Pressure dressing applied for bleeding control. Patient given fentanyl for pain control. She does have a history of diastolic heart failure will try to avoid fluids/excessive fluids. She is on her baseline oxygen currently. She has improvement of her pain significantly with a dose of fentanyl. CBC does show anemia with a hemoglobin of 9.6 however this is at her baseline. No leukocytosis. Does have a left shift but I suspect this is reactive associate with her trauma. Coags are normal. BMP does show hyperglycemia the glucose of 538 however her anion gap is normal and she has a normal bicarb is likely just more chronic. She has elevation of creatinine to 1.92 however this is also near her baseline (was 2.21 on 08/11/2024). X-ray viewed by myself as well as radiology shows an acute displaced fracture of the distal fibula at the level of the tibial fibula syndesmosis and widening of the ankle mortise. Spoke with orthopedics on-call, Dr. Alber Guzman. He feels that this patient is too complex and likely needs trauma transfer for washout and management. Patient is updated on her tetanus and given Ancef in the emergency room. She is given 2 units of insulin for her hyperglycemia. Spoke with [facility] transfer line (this is where patient and family would prefer for her to go as she has previously had cardiac care there) and she is excepted by Dr. Earl to the ER. Notified by nursing staff that she is having increased pain around 10 PM. Is given additional dose of fentanyl and is given a dose of IV Norflex that she seems to be having muscle spasms associated with this as well. Has a compressive dressing with Inderjit wrap on her ankle for stability and bleeding control. Lab Data Attestation: I reviewed the patient's lab results. Labs: Laboratory Results - last 24 hr 12/18/24 19:00 WBC 10.6 RBC 3.53 L Hgb 9.6 L Hct 30.2 L MCV 85.6 MCH 27.2 MCHC 31.8 L RDW Std Deviation 46.7 H RDW Coeff of Sudha 15.0 H Plt Count 317 MPV 9.9 Immature Gran % (Auto) 2.200 H Neut % (Auto) 86.3 H Lymph % (Auto) 4.3 L [place] % (Auto) 6.9 Eos % (Auto) 0.1 Baso % (Auto) 0.2 Absolute Neuts (auto) 9.2 H Absolute Lymphs (auto) 0.46 L Nucleated RBC % 0 PT 14.0 INR 1.1 APTT 24.6 Sodium 135 Potassium 4.5 Chloride 98 Carbon Dioxide 22.8 Anion Gap 14 BUN 44 H Creatinine 1.92 H Estim Creat Clear Calc 28.74 L Est GFR (MDRD) Non-Af 25 L BUN/Creatinine Ratio 23.0 H Glucose 538 H* Calcium 9.0 Radiography Diagnostic Testing: Clinical Impression(s) from Imaging Studies Pelvis X-Ray 12/18/24 19:00 IMPRESSION: Osteopenia with age consistent degenerative changes, no acute findings. Please see discussion above Reading Location: [id number] Tibia/Fibula X-Ray 12/18/24 19:00 IMPRESSION: 1. Acute displaced fracture of the distal fibula at the level of the tibiofibular syndesmosis with surrounding soft tissue swelling. 2. Syndesmotic injury indicative of ligamentous injury. Reading Location: [facility] Ankle X-Ray 12/18/24 19:45 IMPRESSION: 1. Acute displaced fracture of the distal fibula at the level of the tibiofibular syndesmosis with surrounding soft tissue swelling. 2. Syndesmotic injury indicative of ligamentous injury. Reading Location: [id number] Management Discussion w/another healthcare provider: [employer] and Other ([facility] ) Discharge Plan Triage Chief Complaint: Lower Extremity Injury ED Provider: Amanda Yan Dx/Rx/DC Orders Clinical Impression: Open fracture of distal end of left fibula, Longstanding persistent atrial fibrillation, Ankle syndesmosis disruption, Current use of detention anticoagulation, Chronic hypoxic respiratory failure, Chronic anemia, CKD (chronic kidney disease) Prescriptions: No Action sacubitril-valsartan [Entresto] 49-51 mg tablet 1 tab PO BID Gemtesa 75 mg tablet 75 mg PO DAILY levothyroxine 50 mcg tablet 50 mcg PO DAILY Rx Instructions: Take with 200 mcg tab to = 250 mcg daily rosuvastatin 40 mg tablet 40 mg PO QHS levothyroxine 200 mcg tablet 200 mcg PO DAILY Rx Instructions: Take with 50 mcg tab to = 250 mcg daily potassium chloride 20 mEq tablet,ER particles/crystals 20 meq PO DAILY metoprolol tartrate 100 mg tablet 100 mg PO BID furosemide 40 mg Tablet 40 mg PO DAILY 30 Days Qty: 30 0RF acetaminophen 500 mg Tablet 1,000 mg PO Q6H PRN PRN (Reason: Pain Score 1-3) Qty: 0 0RF insulin glargine-yfgn 100 unit/mL (3 mL) Insulin Pen 25 unit subcut BID 30 Days Qty: 15 0RF insulin lispro [Humalog KwikPen Insulin] 100 unit/mL Insulin Pen 5 unit subcut TIDAC 30 Days Qty: 4.5 0RF Eliquis 2.5 mg tablet 2.5 mg PO BID spironolactone 25 mg tablet 25 mg PO DAILY sennosides-docusate sodium [Stimulant Laxative Plus] 8.6-50 mg Tablet 2 tab PO BID PRN PRN (Reason: Constipation) Qty: 0 0RF pantoprazole [Protonix] 40 mg tablet,delayed release (DR/EC) 40 mg PO DAILY Qty: 1 0RF diltiazem HCl 240 mg capsule,extended release 24hr 240 mg PO DAILY Qty: 90 3RF Primary Care Provider: Alexy Douglas Chi Referrals: Alexy Douglas Chi, MD [Primary Care Provider, Geriatrics] Print Language: Turkish Disposition Disposition: Acute Care Hospital Discharge Location: [facility]
--- NOTE | 2024-12-18 19:45 | RAD_ITS ---
PROCEDURE: ANKLE MIN 3 VIEWS; TIBIA FIBULA 2 VIEWS 12/18/2024 REASON FOR EXAM: INJURY/PAIN TECHNIQUE: Procedure Code: RADANK; RADTF Modality: DX Procedure: ANKLE MIN 3 VIEWS; TIBIA FIBULA 2 VIEWS Laterality: Right COMPARISON: Right ankle and leg radiographs 06/30/2024 FINDINGS: Acute displaced fracture of the distal fibula at the level of the tibiofibular syndesmosis. Marked widening of the medial aspect of the tibiofibular syndesmosis. The tibia is intact. Surrounding soft tissue swelling. RAD/Ankle min 3 Views IMPRESSION: 1. Acute displaced fracture of the distal fibula at the level of the tibiofibul ar syndesmosis with surrounding soft tissue swelling. 2. Syndesmotic injury indicative of ligamentous injury. Reading Location: [id number]
[2024-12-18 20:00] LABS: Hematocrit 30.2 % (37-47); Hemoglobin 9.6 g/dL (12.0-15.0); Immature Granulocytes Count 0.230 X10^3/uL (0.0-0.0); Mean Corp Hgb Conc 31.8 g/dL (32-36); Mean Corpuscular Volume 85.6 fL (81-99); Mean Platelet Vol. 9.9 fl (6.2-12.0); NRBC Flagged by Analyzer 0 % (0-5); POSITIVE DIFFERENTIAL YES; Platelet Count 317 K/mm3 (150-450); RBC Distribution Width CV 15.0 % (11.6-14.6); RBC Distribution Width SD 46.7 fl (35.1-43.9); Red Blood Count 3.53 M/mm3 (4.2-5.4); White Blood Count 10.6 K/mm3 (4.4-11.0)
[2024-12-18 20:10] LABS: Prothrombin Time (Protime)PT. 14.0 SECONDS (11.7-14.9)
[2024-12-18 20:11] LABS: Partial Thromboplast Time 24.6 Seconds (24.1-36.2)
[2024-12-18 20:30] LABS: Anion Gap 14 (5-15); BUN 44 mg/dL (4-19); BUN/Creat Ratio 23.0 RATIO (10-20); Calcium,Total 9.0 mg/dL (7.6-11.0); Carbon Dioxide 22.8 mmol/L (21.0-32.0); Chloride 98 mmol/L (98-108); Estimated Creatinine Clearance 28.74 ml/min (50-250); Glucose 538 mg/dL (70-99); Potassium 4.5 mmol/L (3.3-5.1)
[2024-12-18] MEDS: Cefazolin 2 GM in 0.9% Normal Saline (100mL Bag) 100 ML IV (21:31)
[2024-12-18] MEDS: fentaNYL 100 MCG/2 ML Ampul 50 MCG IV (22:39)
[2024-12-18] MEDS: Orphenadrine 60 MG/2 ML Ampul IV (22:39)
[2024-12-18] MEDS: 0.9% Normal Saline (1000mL) 1,000 ML 150 ML IV (22:40)
--- NOTE | 2024-12-18 22:42 | PCA ---
Called [facility], [facility], [facility], [place], and [facility] to try and get a earlier eta and all were unable to provide ALS trucks
[2024-12-19] VITALS: BP 167/117; PULSE 122; RESP 18; O2SAT 94
[2024-12-19 01:00] VITALS: BP 155/116; PULSE 117; RESP 22; O2SAT 97
[2024-12-19 02:00] VITALS: BP 167/111; PULSE 123; RESP 18; O2SAT 97
[2024-12-19 03:00] VITALS: BP 146/117; PULSE 119; RESP 18; O2SAT 99
[2024-12-19 04:00] VITALS: BP 162/114; PULSE 124; RESP 18; O2SAT 94
[2024-12-19] MEDS: fentaNYL 100 MCG/2 ML Ampul 50 MCG IV (04:20)
== END 2024-12-19 04:37 | disposition short-term general hospital (02) ==
PROVIDERS: Emergency Provider Emergency Medicine; PCP Family Medicine Geriatric Medicine; Visit Provider Emergency Medicine
DX: S82.832B Other fracture of upper and lower end of left fibula, initial encounter for open fracture type I or II (principal); J96.11 Chronic respiratory failure with hypoxia; I13.0 Hypertensive heart and chronic kidney disease with heart failure and stage 1 through stage 4 chronic kidney disease, or unspecified chronic kidney disease; I50.33 Acute on chronic diastolic (congestive) heart failure; J44.89 Other specified chronic obstructive pulmonary disease; I48.11 Longstanding persistent atrial fibrillation; E11.22 Type 2 diabetes mellitus with diabetic chronic kidney disease; Z79.4 Long term (current) use of insulin; E11.65 Type 2 diabetes mellitus with hyperglycemia; N18.30 Chronic kidney disease, stage 3 unspecified; Z79.01 Long term (current) use of anticoagulants; D63.1 Anemia in chronic kidney disease; Z87.891 Personal history of nicotine dependence; W01.0XXA Fall on same level from slipping, tripping and stumbling without subsequent striking against object, initial encounter; E78.00 Pure hypercholesterolemia, unspecified; Z90.710 Acquired absence of both cervix and uterus; Z90.10 Acquired absence of unspecified breast and nipple
CPT/HCPCS: 72170; 73590; 73610; 80048; 85025; 85610; 85730; 90715; 96361; 96372; 96374; 96375; 99285; A4216; J2405

== ENCOUNTER 2024-12-24 16:40 | Inpatient (IN) | payer MEDICARE, OTHER, SELFPAY ==
[2024-12-24 17:02] VITALS: BP 118/68; PULSE 70; PULSE 88; RESP 16; RESP 17; TEMP 36.1; O2SAT 97; O2SAT 99; BMI 35.9
--- NOTE | 2024-12-24 17:45 | HP.PCM_ITS ---
HPI - General General Date of Admission: 12/24/24 Date of Service: 12/24/24 Chief Complaint: Here for rehabilitation. HPI Narrative TONJA SÁNCHEZ, is a 84 Female who presents with followin12/18/2024 [facility] ED lower extremity injury. Tripped, fell, large laceration right lower extremity, bleeding profusely. X-ray showed right ankle fracture. Td, Ancef, Fentanyl, Norflex given. Transfer to [facility] open right ankle fracture. 12/19/2024 Admit [facility] open right ankle fracture. Dr. Bob performed right ankle irrigation, debridement with ORIF. 12/19/2024 PT/OT/CM. wound VAC right ankle. 12/24/2024 Wound VAC removed. 12/24/2024 Admit to TCU with debility, here for rehabilitation, strengthening, prior to discharge home alone on hospice. [facility] Medical History (Updated 12/24/24 @ 17:[address] Alexy Douglas MD) Type 2 diabetes mellitus with hyperglycemia Overactive bladder Iron deficiency anemia Encounter for monitoring diuretic therapy Pneumonia Nausea and vomiting Acute bronchospasm Acute exacerbation of chronic heart failure Daytime hypersomnia Chronic anticoagulation Hypoxia Pleural effusion Cellulitis of left lower leg Diabetic infection of left foot Knee pain, left Proteinuria Morbid obesity Macular degeneration Pleural effusion, left Chest pain Bacteremia Cellulitis of right leg Elevated troponin Acute on chronic diastolic (congestive) heart failure Atrial fibrillation with RVR Cellulitis of right lower leg Encephalopathy acute Sepsis Tricuspid valve insufficiency Ileus due to infection SOB (shortness of breath) (HFpEF) heart failure with preserved ejection fraction CHF (congestive heart failure) Chronic respiratory failure with hypoxia and hypercapnia Anticoagulated Asthma CHF exacerbation Congestive heart failure (CHF) IDDM (insulin dependent diabetes mellitus) Diabetes Rheumatoid arthritis On home oxygen therapy Low iron Insulin dependent diabetes mellitus Wears glasses Wears dentures Cancer History of steroid therapy History of renal disease High cholesterol Restless legs Injury of back Back pain Dietary restriction Shortness of breath on exertion History of pain when walking History of edema History of echocardiogram History of stress test Cardiology follow-up encounter History of CHF (congestive heart failure) History of atrial fibrillation Hyperlipidemia Hypothyroidism Diabetes mellitus Hypertension Chronic kidney disease, stage 3b Former smoker Atrial fibrillation Hypertension Chronic anticoagulation Skin cancer, basal cell Actinic keratosis Skin lesion Skin cancer Chronic diastolic (congestive) heart failure Longstanding persistent atrial fibrillation Diastolic dysfunction Secondary pulmonary arterial hypertension Non-rheumatic tricuspid valve insufficiency Stage 2 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 Right hip pain Disc degeneration, lumbar Fatigue UTI (urinary tract infection) Hypoxia Hypersomnia COPD (chronic obstructive pulmonary disease) Obesity Tobacco dependence in remission CKD (chronic kidney disease) stage 3, GFR 30-59 ml/min Breast cancer Essential (primary) hypertension BMI 39.0-39.9,adult Erosion of bladder suspension mesh SHAKIRA (stress urinary incontinence, female) Home Medications Medication Instructions Recorded Last Taken Type apixaban 2.5 mg tablet (Eliquis) 2.5 mg PO BID blood t hinner 08/20/23 07/06/24 09:10 History sacubitril 49 mg-valsartan 51 mg 1 tab PO BID heart 07/06/24 09:10 History tablet (Entresto) rosuvastatin 40 mg tablet 20 mg PO QHS cholesterol 04/24/24 History vibegron 75 mg tablet (Gemtesa) 75 mg PO DAILY follow up needed 04/01/24 07/06/24 09:10 History potassium chloride 20 mEq 20 meq PO DAILY hypokalemia 04/05/24 04/24/24 History tablet,extended release(part/cryst) metoprolol tartrate 100 mg tablet 100 mg PO BID heart 04/25/24 07/06/24 09:10 History levothyroxine 200 mcg tablet 200 mcg PO DAILY thyroid 05/14/24 07/06/24 History levothyroxine 50 mcg tablet 50 mcg PO DAILY THYROID 07/06/24 History diltiazem HCl 240 mg 240 mg PO DAILY heart #90 ca ps 06/05/24 07/06/24 Rx capsule,extended release 24 hr spironolactone 25 mg tablet 25 mg PO DAILY DIURETIC 07/06/24 09:10 History pantoprazole 40 mg tablet,delayed 40 mg PO DAILY GERD #1 TAB 07/06/24 Unknown Rx release (Protonix) sennosides 8.6 mg-docusate sodium 2 tab PO BID PRN PRN Constipation 07/06/24 Unknown Rx 50 mg tablet (Stimulant Laxative #0 tabs Plus) insulin glargine-yfgn 100 unit/mL 25 unit (0.25 mL) interiano bcut BID 30 07/13/24 Unknown Rx (3 mL) subcutaneous pen days #15 mL insulin lispro 100 unit/mL 5 unit (0.05 mL) subcut TID AC 30 07/13/24 Unknown Rx subcutaneous pen (Humalog KwikPen days #4.5 mL (U-100) Insulin) acetaminophen 500 mg tablet 1,000 mg PO Q8H Pain 12/24 Unknown History albuterol sulfate 90 mcg/actuation 2 puff inhalation Q 4H PRN PRN 12/24/24 Unknown History aerosol inhaler dyspnea atorvastatin 40 mg tablet (Lipitor) 40 mg PO DAILY [facility] 12/24/24 Unknown History bisacodyl 5 mg tablet 5 mg PO DAILY PRN constipati on 12/24/24 Unknown History doxepin 10 mg capsule 10 mg PO QHS sleep 12/24/24 Unknown History ferrous sulfate 325 mg (65 mg 325 mg PO DAILY suppleme nt 12/24/24 Unknown History iron) tablet (Ramírez-Time) furosemide 40 mg tablet 40 mg PO BID diuresis Unknown History glimepiride 1 mg tablet 1 mg PO DAILY diabetes 12/24 Unknown History insulin degludec 100 unit/mL (3 40 unit subcut DAILY d iabetes 12/24/24 Unknown History mL) subcutaneous pen (Tresiba FlexTouch U-100 insulin) oxycodone 5 mg capsule 5 mg PO Q4H pain 6-10 Unknown History oxycodone-acetaminophen 5 mg-325 1 tab PO Q4H PRN pain 4-10 12/24/24 Unknown History mg tablet polyethylene glycol 3350 17 17 g PO DAILY constipation 12/24/24 Unknown History gram/dose oral powder (Miralax) polysaccharide iron complex 150 mg 150 mg PO DAILY sup plement 12/24/24 Unknown History iron capsule sacubitril 24 mg-valsartan 26 mg 1 tab PO BID heart he alth 12/24/24 Unknown History tablet tramadol 50 mg tablet 50 mg PO Q6H pain 1-5 Unknown History Allergy/AdvReac Type Severity Reaction Status Date / Time Sulfa (Sulfonamide Allergy PEELING Verified 06/26/24 14:01 Antibiotics) RASH Family History Mother Colon cancer Cancer skin, bladder Daughter Cancer Thyroid Sister CAD (coronary artery disease) Surgical History History of surgery Hx of colonoscopy Hx of right cataract extraction Hx of left cataract extraction History of excision of lesion Hx of local excision of skin lesion History of cardioversion (03/20/19) History of hysterectomy History of partial mastectomy History of left heart catheterization (05/31/14) Social History household members: none housing: house current occupational status: retired Smoking Status: Former smoker how long ago did patient quit smokin, 2p/day second hand exposure: Yes alcohol intake: current alcohol intake frequency: holidays/special occasions only substance use type: does not use ROS Constitutional Constitutional: Reports weakness; Denies chills, fever(s) or weight gain ENT HEENT: Denies headache(s), nasal congestion or nasal discharge Cardiovascular Cardiovascular: Denies chest pain or palpitations Respiratory/Chest Respiratory/Chest: Denies cough, excessive phlegm production or shortness of b reath with exertion Gastrointestinal Gastrointestinal: Denies abdominal pain, nausea or vomiting Genitourinary Genitourinary: Denies dysuria Musculoskeletal Musculoskeletal: Denies joint pain or joint swelling Integumentary Integumentary: Denies rash or wounds Neurologic Neurologic: Denies focal weakness, numbness or tingling Psychiatric Psychiatric: Denies anxiety, auditory hallucinations, depression, homicidal ideation or suicidal ideation Vital Signs Vital Signs Vital Signs: 12/24/24 17:02 Temperature 97.0 F L Temperature Source Temporal Pulse Rate 88 Respiratory Rate 16 Blood Pressure 118/68 Blood Pressure Mean 84 Blood Pressure Source Monitor Blood Pressure Position Semi-Fowlers Blood Pressure Location Right Arm Pulse Ox 99 Oxygen Delivery Method Nasal Cannula Oxygen Flow Rate (L/min) 4 Weight Weight: 107.048 kg Body Mass Index (BMI) 35.9 Physical Exam Const alert General Appearance: cooperative HEENT normocephalic Eyes PERRL and EOMs intact bilaterally Neck supple, no JVD and no carotid bruits Resp normal respiratory effort, normal air movement and clear to auscultation bilat erally Cardio regular rate and regular rhythm GI normal to inspection, nondistended, normoactive bowel sounds, non-tender and non-distended Extremity normal capillary refill Extremity Narrative: Right lower extremity splint, dressed. General Extremity: Negative for edema Skin no rashes or lesions noted General Skin Exam: no breakdown Psych affect normal Appearance: appropriate Results Lab / Micro Data Labs: Laboratory Results - last 24 hr 12/24/24 17:05: POC Glucose 152 H Assessment & Plan Assessment/Plan (1) Debility: (2) Open right ankle fracture: (3) Atrial fibrillation: (4) Chronic heart failure with preserved ejection fraction (HFpEF): (5) COPD (chronic obstructive pulmonary disease): (6) Hyperlipidemia: (7) Vitamin D deficiency: (8) Hypothyroidism: (9) GERD (gastroesophageal reflux disease): (10) Type 2 diabetes mellitus with hyperglycemia: (11) Overactive bladder: PLAN: Plan 84 year old female with below past medical history hospitalized open right ankle fracture, underwent right ankle irrigation, debridement with ORIF 12/19/[address] Bob, admitted to TCU with debility, here for rehabilitation, strengthening, prior to discharge home alone with hospice. * Debility - PT/OT. * Pain - Tylenol 1000mg q8, Tramadol 50mg q6 prn pain (1-5), Oxycodone 5mg q4 prn pain (6-10). * Bowel - Miralax 17gm daily, senna/colace 2 tablets bid, Magnesium citrate 300mL daily prn. * Adult immunization - Administer pneumonia vaccine, covid vaccine, flu vaccine as appropriate. * DVT prophylaxis - Eliquis. * COPD - Albuterol 2 puffs q4 prn. * Atrial fibrillation - Metoprolol 100mg bid, Diltiazem 240mg daily, Eliquis 2.5mg bid. * Hyperlipidemia - Atorvastatin 40mg qhs. * Chronic HFpEF - Metoprolol 100mg bid, Entresto 24/26mg bid, Furosemide 40mg bid. * Diabetes Mellitus II - Glimepiride 1mg daily, Glargine 40 units daily. * Iron deficiency anemia - Ferrex 150mg daily. * Hypothyroidism - Levothyroxine 200mcg daily. * Hypokalemia - KCL 20meq daily.
[2024-12-24 17:51] VITALS: BMI 35.9
[2024-12-24 19:39] VITALS: O2SAT 97
[2024-12-24 21:43] VITALS: BP 136/72; PULSE 98
[2024-12-24] MEDS: Senna/Docusate Sodium 1 Tablet 2 TABLET PO (21:50)
[2024-12-24] MEDS: APIXABAN 2.5 MG TABLET (WCH) PO (21:50)
[2024-12-24] MEDS: Doxepin Hydrochloride 10 MG Capsule PO (21:51)
[2024-12-24] MEDS: SACUBITRIL/VALSARTAN 24/26 MG TABLET 1 EACH PO (21:53)
[2024-12-24 21:54] VITALS: BP 136/72; PULSE 98
[2024-12-25] VITALS (7 sets, daily range): BP systolic 119–121; BP diastolic 50–66; PULSE 88–104; RESP 18; TEMP 36.7; O2SAT 95–97
[2024-12-25 05:19] LABS: Hematocrit 28.0 % (37-47); Hemoglobin 8.7 g/dL (12.0-15.0); Immature Granulocytes Count 0.190 X10^3/uL (0.0-0.0); Mean Corp Hgb Conc 31.1 g/dL (32-36); Mean Corpuscular Volume 86.2 fL (81-99); Mean Platelet Vol. 9.8 fl (6.2-12.0); NRBC Flagged by Analyzer 0 % (0-5); Platelet Count 301 K/mm3 (150-450); RBC Distribution Width CV 15.8 % (11.6-14.6); RBC Distribution Width SD 49.9 fl (35.1-43.9); Red Blood Count 3.25 M/mm3 (4.2-5.4); White Blood Count 9.0 K/mm3 (4.4-11.0)
[2024-12-25 05:42] LABS: Anion Gap 10 (5-15); BUN 34 mg/dL (4-19); BUN/Creat Ratio 20.5 RATIO (10-20); Calcium,Total 8.6 mg/dL (7.6-11.0); Carbon Dioxide 31.1 mmol/L (21.0-32.0); Chloride 100 mmol/L (98-108); Estimated Creatinine Clearance 31.75 ml/min (50-250); Glucose 146 mg/dL (70-99); Potassium 3.4 mmol/L (3.3-5.1)
[2024-12-25] MEDS: Potassium Chloride Oral Tablet 20 MEQ PO (08:55)
[2024-12-25] MEDS: SACUBITRIL/VALSARTAN 24/26 MG TABLET 1 EACH PO ×2 (08:55→21:38)
[2024-12-25] MEDS: Polyethylene Glycol 3350 17 GM PACKET PO (09:04)
[2024-12-25] MEDS: Senna/Docusate Sodium 1 Tablet 2 TABLET PO ×2 (09:05→21:45)
[2024-12-25] MEDS: Insulin Glargine-YFGN 100 UNIT/ML Pen 40 UNIT SC (10:56)
[2024-12-25] MEDS: Tuberculin,Purif.prot.deriv. 50 TU/ML Vial 0.1 ML ID (11:00)
--- NOTE | 2024-12-25 11:19 | PHA.CONS_ITS ---
Documented by User: Bahman Hi 12/25/24 14:16 TCU RX Drug Regimen Review Subjective/Objective Subjective/Objective Subjective: TCU Admission. 84 year old female hospitalized due to an open right ankle fracture, underwent right ankle irrigation, debridement with ORIF 12/19/[address] Bob. Admitted to TCU with debility, here for rehabilitation, strengthening, prior to discharge home alone with hospice. Objective: Allergies Sulfa (Sulfonamide Antibiotics) Allergy (Verified 06/26/24 14:01) PEELING RASH Current Medications Generic Name Dose Route Start Last Admin Trade Name Freq PRN Reason Stop Dose Admin Acetaminophen 1,000 mg 12/24/24 22:00 12/25/24 05:25 Acetaminophen 500 Mg Tablet PO 1,000 mg Q8 DAVID Administration Albuterol Sulfate 2 puff 12/24/24 17:56 Albuterol Ih (6.7 Gm) 1 Puff Inhaler INHALATION Q4H PRN PRN DYSPNEA Apixaban 2.5 mg 12/24/24 22:00 12/24/24 21:50 Apixaban 2.5 Mg Tablet ([facility]) PO 2.5 mg On Hold: 12/25/24 07:52 BID DAVID Administration Atorvastatin Calcium 40 mg 12/24/24 22:00 12/24/24 21:53 Atorvastatin Calcium 40 Mg Tablet PO 40 mg QHS DAVID Administration Diltiazem HCl 240 mg 12/25/24 10:00 12/25/24 08:54 Diltiazem Cd 240 Mg Capsule PO 240 mg DAILY DAVID Administration Protocol Doxepin HCl 10 mg 12/24/24 22:00 12/24/24 21:51 Doxepin Hydrochloride 10 Mg Capsule PO 10 mg QHS DAVID Administration Furosemide 40 mg 12/24/24 22:00 12/25/24 08:56 Furosemide 40 Mg Tablet PO 40 mg BID DAVID Administration Protocol Glimepiride 1 mg 12/25/24 08:00 12/25/24 08:54 Glimepiride 1 Mg Tablet PO 1 mg DAILYCM DAVID Administration Insulin Glargine 40 unit 12/25/24 10:00 12/25/24 10:56 Insulin Glargine-Yfgn 100 Unit/Ml Pen SC 40 unit DAILY DAVID Administration Levothyroxine Sodium 200 mcg 12/25/24 06:00 12/25/24 05:24 Levothyroxine 100 Mcg Tablet PO 200 mcg DAILY@0600 [facility] Administration Magnesium Citrate 300 ml 12/24/24 17:59 Magnesium Citrate 300 Ml PO DAILY PRN CONSTIPATION Metoprolol Tartrate 100 mg 12/24/24 22:00 12/25/24 08:56 Metoprolol Tartrate 100 Mg Tablet PO 100 mg BID [facility] Administration Protocol Nystatin 1 applic 12/24/24 22:06 12/25/24 08:57 Nystatin Powder 15gm Bottle TOPICAL 1 applic BID [facility] Administration Protocol Oxycodone HCl 5 mg 12/24/24 18:10 Oxycodone 5 Mg Tablet PO Q4H PRN PAIN 6-10 Polyethylene Glycol 17 gm 12/25/24 10:00 12/25/24 09:04 Polyethylene Glycol 3350 17 Gm Packet PO 17 gm DAILY [facility] Administration Polysaccharide Iron Complex 150 mg 12/25/24 10:00 12/25/24 08:55 Iron Polysaccharide Complex 150 Mg Capsule PO 150 mg DAILY DAVID Administration Potassium Chloride 20 meq 12/25/24 10:00 12/25/24 08:55 Potassium Chloride Oral Tablet 20 Meq PO 20 meq DAILY [facility] Administration Sacubitril/Valsartan 1 each 12/24/24 22:00 12/25/24 08:55 Sacubitril/Valsartan 24/26 Mg Tablet PO 1 each BID [facility] Administration Senna/Docusate Sodium 2 tablet 12/24/24 22:00 12/25/24 09:05 Senna/Docusate Sodium 1 Tablet PO 2 tablet BID DAVID Administration Tramadol HCl 50 mg 12/24/24 18:11 Tramadol 50 Mg Tablet PO Q6H PRN PAIN 1-5 Tuberculin PPD 0.1 ml 01/01/25 10:00 Tuberculin,Purif.Prot.Deriv. 50 Tu/Ml Vial ID 01/01/25 10:01 X1 ONE Problem List Overactive bladder (Acute) Type 2 diabetes mellitus with hyperglycemia (Acute) GERD (gastroesophageal reflux disease) (Acute) Vitamin D deficiency (Acute) Chronic heart failure with preserved ejection fraction (HFpEF) (Acute) Open right ankle fracture (Acute) Hyperlipidemia (Acute) Hypothyroidism (Acute) COPD (chronic obstructive pulmonary disease) (Chronic) Atrial fibrillation (Acute) Vital Signs Temp Pulse Resp BP Pulse Ox O2 Del Method O2 Flow Rate 97.0 F L 104 H 17 119/50 L 97 Nasal Cannula 4 12/24/24 17:02 12/25/24 08:56 12/24/24 17:02 12/25/24 08:56 12/24/24 19:39 12/25/24 08:38 12/25/24 08:38 Oxygen Flow Rate (L/min) 4 Oxygen Delivery Method Nasal Cannula Weight: 107.048 kg Body Mass Index (BMI) 35.9 Sodium 140 mmol/L (133-145) 12/25/24 04:50 Potassium 3.4 mmol/L (3.3-5.1) 12/25/24 04:50 Chloride 100 mmol/L (98-108) 12/25/24 04:50 Carbon Dioxide 31.1 mmol/L (21.0-32.0) 12/25/24 04:50 Anion Gap 10 (5-15) 12/25/24 04:50 BUN 34 mg/dL (4-19) H 12/25/24 04:50 Creatinine 1.66 mg/dL (0.70-1.20) H 12/25/24 04:50 Est GFR (MDRD) Non-Af 30 (>60) L 12/25/24 04:50 BUN/Creatinine Ratio 20.5 RATIO (10-20) H 12/25/24 04:50 Glucose 146 mg/dL (70-99) H 12/25/24 04:50 Assessment/Plan: 1. Pain - Tylenol 1000mg PO Q8H, Tramadol 50mg Q6H PRN pain (1-5), Oxycodone 5mg PO Q4H PRN pain (6-10). Monitor pain scores before/after prn administration for response, PRN pain medication usage, symptoms of pain/resident distress and ability to participate in therapy. Last LFTs: 07/01/24. Check LFTs if resident develops symptoms of hepatoxicity. Consider monitoring LFTs if patient using > 3 gm/day of acetaminophen for prolonged period. Do not exceed 4000 mg in 24 hours. Monitor for constipation (last BM: 12/20/24), respiratory depression (current RR range: 16-17), falls and sedation/delirium (James). 2. Bowel - Miralax 17gm PO daily, senna/colace 2 tablets PO BID, Magnesium citrate 300mL PO daily PRN constipation. Resident has not used any prn doses at this time. Last document bowel movement: 12/20/24. Monitor for usage of prn medications, abdominal pain, frequency of bowel movements, diarrhea. Recommend holding bowel regimen if resident develops diarrhea. 3. DVT prophylaxis - Eliquis 2.5mg PO BID. Monitoring listed below. Monitor for symptoms of VTE (new onset leg pain, swelling, erythema, SOB, chest pain, hypoxia) and bleeding. 4. COPD - Albuterol 2 puffs Q4H PRN shortness of breath. Please monitor for PRN medication usage, tachycardia, anxiety, and headache. 5. Diabetes Mellitus II - Glimepiride 1mg PO daily, Glargine 40 units SC daily. Please monitor for signs/symptoms of low blood sugar, weight gain, increased thirst/hunger, weakness, and blood sugar levels. Blood sugar levels last 24 hr: 135-174, A1c: 8.9 (03/17). 6. Iron deficiency anemia - Ferrex 150mg PO daily. Please monitor for constipation, changes in stool color and anemia labs. Last iron deficiency anemia labs from 03/17/24 are as follows: Fe: 35, TIBC: 272, Fe saturation: 1 2.9, Ferritin: 42. 7. Hypothyroidism - Levothyroxine 200mcg PO daily. Please monitor for appetite changes, changes in heart rate, and fatigue. 8. Hypokalemia - KCL 20meq PO daily. Please monitor potassium levels (K: 3.4 (12/25/24)), and abdominal pain. 9. Skin irritation - nystatin powder 1 topical application daily. 10. Atrial fibrillation - Diltiazem 240mg PO daily, Eliquis 2.5mg PO BID, Metoprolol 100mg PO BID. Monitor renal function (SCr = 1.66 (12/25/24)) and body weight (Wt = 107 kg). Current apixaban dose appropriate for age, weight and SCr. Monitor for symptoms of bleeding (including melena, hemoptysis, hematuria, epistaxis, new-onset headache), hemoglobin (last Hgb = 8.7 (12/25/24)). HR last 24 hr= 70-104. Rate appears adequately controlled. Monitor heart rate, blood pressure, exercise capacity and for symptoms including palpitations, dizziness, dyspnea, chest pain. 11. Hyperlipidemia - Atorvastatin 40mg PO QHS. Monitor for new/worsening heart failure symptoms, bradyarrhythmia, liver function tests if resident develops symptoms of hepatoxicity. Monitor for headache and new muscle pain/cramping or weakness. Consider CPK if myopathy/rhabdomyolysis suspected, last AST/ALT = 07/01/24. Last FLP = 07/01/24, HDL: 51, LDL: 34, TC: 103, T. LDL at goal at last check for patient. 12. HFpEF - Entresto 24/26mg PO BID, Furosemide 40mg PO BID. Monitor serum potassium (last K = 3.4), magnesium (last Mg= 2.1 (07/04/24)), calcium (last Ca = 8.6) and sodium (last Na = 140). Last echo EF: 50% (07/01/24). BP range since admission = 118/68 - 136/72. Heart failure regimen could potentially be optimized with guideline-directed medical therapy. Consider the following adjustments to the medication regimen: adding empagliflozin 10 mg PO daily. Monitor volume status (weight, lower extremity edema, JVD, lung examination) and for symptoms of exacerbation (SOB, dyspnea on exertion, orthopnea, edema, fatigue, wet cough or frothy/pink mucous). Assessment/Plan for indications treated with psychotropic medications: 1. Insomnia - Doxepin 10 mg PO QHS. Monitor for efficacy including resident symptoms, behaviors and indications of distress. Monitor for tolerability including mental status, cognition, excessive sleepiness, withdrawal or decreased participation in activities and decline in physical functioning. Maximize use of nonpharmacologic/behavioral interventions to facilitate dose reduction or discontinuation as appropriate. Please evaluate the appropriateness of GDR unless contraindicated. If appropriate, GDR should be attempted in 2 separate quarters within the first year of use or admission to TCU. If GDR attempted, monitor resident symptoms/behaviors. Medical chart and medication regimen reviewed. The following medication irregularities or issues were identified: - Please consider ordering iron deficiency labs as the most recent labs are from 03/17/24 (Iron level, TIBC, Iron saturation, Ferritin). - Please consider ordering an A1c level as the most recent level is from 03/17/24. - Please consider ordering a magnesium level as the most recent is from 07/04/24 and the patient is taking furosemide which may cause electrolyte changes. - Please consider the following adjustments to the medication regimen due to the diagnoses of HFpEF and T2DM: adding empagliflozin 10 mg PO daily Date Date of Note: 12/25/24 Documented by User: Dr. Alexy Douglas MD 12/25/24 13:54 TCU RX Drug Regimen Review Provider Comments Provider responsibility Provider Comments to Recommendations by Pharmacy Agree
--- NOTE | 2024-12-25 11:27 | NURSING ---
Art Director Note, Activity Asset: Rik Donohue has returned for therapy and remains independent in her choice of daily activities. She has her cell phone, word puzzles, watches tv, and enjoys reading book or magazines. She welcomes visits from the therapy dog and property adjuster when available. Staff will encourage social activities, remind her of weekly activities and respect her right to say no.
--- NOTE | 2024-12-25 12:48 | WOUNDNOTE ---
wound photo: right lower leg
--- NOTE | 2024-12-25 12:51 | WOUNDNOTE ---
wound photo: right lower leg
--- NOTE | 2024-12-25 12:51 | WOUNDNOTE ---
wound photo: right lower leg (lateral view)
--- NOTE | 2024-12-25 14:02 | CHAPLAIN ---
Type of Pastoral Visit _x__ Initial Visit ___ Follow-up Visit ___ On-call Visit ___ General Patient Visit ___ Spiritual Assessment ___ Family Conference ___ Bereavement ___ Rapid Response ___ Code Blue ___ Other (describe below) Pastoral Care Referral From _x__ Patient ___ Family ___ Nurse ___ Physician ___ Curtain Supervisor ___ Cashier Ticket Selling ___ Other (describe below) Sacrament/Intervention _x__ Active listening ___ Anointing ___ Sabianist ___ Bereavement ___ Communion ___ Cheri exploration ___ ___ Life review ___ Prayer ___ Reconciliation ___ Sacrament of Sick _x__ Supportive presence ___ Wedding ___ Other (describe below) Pastoral Comments this is a new patient to the unit; pt had just received therapy and now she has several family visitors; pt is given an opening to talk about herself and what she needs; after a few minutes the visit ends due to having a tight schedule for patient and her visitors
[2024-12-25 15:12] LABS: Iron 30 ug/dL (50-170); Iron Binding Capacity,Unsat 178 ug/dL (228-428)
[2024-12-25 16:05] LABS: Iron Binding Capacity,Total 208 ug/dL (250-450)
[2024-12-25] MEDS: Doxepin Hydrochloride 10 MG Capsule PO (21:38)
--- NOTE | 2024-12-25 21:53 | NURSING ---
Stool collected per order for occult stool, specimen sent to lab.
--- NOTE | 2024-12-25 22:20 | NURSING ---
Occult stool results received, Dr. Douglas updated via written communication.
[2024-12-26 06:05] LABS: Hematocrit 29.7 % (37-47); Hemoglobin 8.8 g/dL (12.0-15.0)
[2024-12-26 09:30] VITALS: BP 124/65; PULSE 62; RESP 20; TEMP 36.2; O2SAT 94
[2024-12-26] MEDS: Potassium Chloride Oral Tablet 20 MEQ PO (09:34)
[2024-12-26 09:35] VITALS: PULSE 62
[2024-12-26] MEDS: Insulin Glargine-YFGN 100 UNIT/ML Pen 40 UNIT SC (09:35)
[2024-12-26] MEDS: SACUBITRIL/VALSARTAN 24/26 MG TABLET 1 EACH PO ×2 (09:35→20:28)
--- NOTE | 2024-12-26 17:55 | NURSING ---
dr pugh updated on + occult stool new order to c/o dr martinez.
[2024-12-26] MEDS: Doxepin Hydrochloride 10 MG Capsule PO (20:28)
[2024-12-26 21:34] VITALS: PULSE 70; RESP 16; O2SAT 97
--- NOTE | 2024-12-27 06:03 | NURSING ---
Returned Daughter's (Marleny) call this morning and provided her with updates and answered any questions and concerns she has regarding her mother's plan of care.
[2024-12-27 06:21] LABS: Hematocrit 29.3 % (37-47); Hemoglobin 8.8 g/dL (12.0-15.0)
[2024-12-27 08:36] VITALS: BP 112/57; PULSE 87; RESP 22; TEMP 36.3; O2SAT 96
[2024-12-27] MEDS: Potassium Chloride Oral Tablet 20 MEQ PO (08:42)
[2024-12-27] MEDS: SACUBITRIL/VALSARTAN 24/26 MG TABLET 1 EACH PO ×2 (08:42→21:55)
[2024-12-27 08:43] VITALS: PULSE 87
[2024-12-27] MEDS: Insulin Glargine-YFGN 100 UNIT/ML Pen 40 UNIT SC (08:43)
[2024-12-27 11:14] VITALS: PULSE 87; RESP 18; O2SAT 96
--- NOTE | 2024-12-27 11:21 | NURSING ---
Addendum entered by Silvana Valdez 12/27/24 14:08: dr Douglas notified, new orders for anusol suppos BID PRN Original Note: dressing changed to RT ankle per orders. pt assisted via celina and x2 staff from bed to chair, legs elevated, pillows under both LE's. call light in reach. pt c/o burning d/t hemorrhoids, inflamed external hemorrhoids noted. cleaned w/soap/water. will update dr douglas for anusol suppository.
[2024-12-27 21:53] VITALS: BP 121/60; PULSE 79; O2SAT 96
[2024-12-27 21:55] VITALS: PULSE 79
[2024-12-27] MEDS: Doxepin Hydrochloride 10 MG Capsule PO (21:55)
[2024-12-28] MEDS: Potassium Chloride Oral Tablet 20 MEQ PO (09:22)
[2024-12-28] MEDS: SACUBITRIL/VALSARTAN 24/26 MG TABLET 1 EACH PO ×2 (09:22→20:12)
[2024-12-28 09:27] VITALS: BP 123/64; PULSE 89
[2024-12-28] MEDS: Insulin Glargine-YFGN 100 UNIT/ML Pen 30 UNIT SC (09:29)
[2024-12-28 09:45] VITALS: BP 123/64; PULSE 89; RESP 20; TEMP 36.4; O2SAT 91
[2024-12-28 09:46] VITALS: PULSE 89; RESP 22; O2SAT 92
--- NOTE | 2024-12-28 11:21 | MDS.RN ---
MDS entry and pain assessment complete.
[2024-12-28 12:32] VITALS: O2SAT 99
--- NOTE | 2024-12-28 16:02 | CHAPLAIN ---
Type of Pastoral Visit ___ Initial Visit _x__ Follow-up Visit ___ On-call Visit ___ General Patient Visit ___ Spiritual Assessment ___ Family Conference ___ Bereavement ___ Rapid Response ___ Code Blue ___ Other (describe below) Pastoral Care Referral From _x__ Patient ___ Family ___ Nurse ___ Physician ___ Youth Specialist ___ Attending Psychiatrist ___ Other (describe below) Sacrament/Intervention _x__ Active listening ___ Anointing ___ Christianity ___ Bereavement ___ Communion ___ Cheri exploration ___ ___ Life review ___ Prayer ___ Reconciliation ___ Sacrament of Sick _x__ Supportive presence ___ Wedding ___ Other (describe below) Pastoral Comments after a brief initial visit last week, this marine fisheries technician returned to check on this patient who is resting in her chair; pt states that she had more visitors over the weekend and that she is feeling pretty good; pt knows that she can't stand on her foot that it means she will not be going home real soon; pt states that she has no worries but is thankful for a good word and visit
[2024-12-28 20:01] VITALS: BP 113/60; PULSE 80; O2SAT 94
[2024-12-28] MEDS: Doxepin Hydrochloride 10 MG Capsule PO (20:10)
[2024-12-28 20:13] VITALS: BP 113/60; PULSE 80
[2024-12-29] VITALS (7 sets, daily range): BP systolic 108–117; BP diastolic 56–62; PULSE 69–88; RESP 20; TEMP 36.7; O2SAT 94–99; BMI 35.2
--- NOTE | 2024-12-29 08:49 | NURSING ---
Left VM with Dr. Kiser's office to see about follow-up. Asked about f/u xrays here as she is using a celina lift for transfers.
[2024-12-29] MEDS: Potassium Chloride Oral Tablet 20 MEQ PO (08:55)
[2024-12-29] MEDS: SACUBITRIL/VALSARTAN 24/26 MG TABLET 1 EACH PO ×2 (08:56→21:37)
[2024-12-29] MEDS: Insulin Glargine-YFGN 100 UNIT/ML Pen 30 UNIT SC (08:57)
--- NOTE | 2024-12-29 14:50 | CASEMGMT ---
Social Work JOSH met with pt and completed psychosocial assessment. Pt confirms DNRCCA no intubation code status. SW requested pt ask family to bring copies of Advance Directives to TCU for scanning into pt's record. JOSH educated pt to Medicare Benefit. Since last discharge from TCU on 07/14/24 pt went home alone and was living in her basement where there were 11 steps to get to. Services were arranged through [facility] and pt was receiving these services and revoked hospice to have surgery on ankle and receive rehab. Pt would like to return home at time of discharge and resume hospice services. JOSH inquired about realisticness of this plan as pt is currently not able to put weight on ankle and pt lives in a basement with 11 steps. Pt is unwilling to entertain this discussion at this time and is hopeful she will have a full recovery. JOSH will follow for dc planning. SAIRA Bhakta
--- NOTE | 2024-12-29 14:59 | CASEMGMT ---
BIMS and PHQ2 (00) interviews completed on this date for MDS assessment. Niurka CHÁVEZ
--- NOTE | 2024-12-29 16:04 | WOUNDNOTE ---
wound photo: right lower leg (medial view)
--- NOTE | 2024-12-29 16:05 | WOUNDNOTE ---
wound photo: right lower leg (anterior view)
--- NOTE | 2024-12-29 16:06 | WOUNDNOTE ---
wound photo: right lower leg (medial view)
[2024-12-29] MEDS: Doxepin Hydrochloride 10 MG Capsule PO (21:37)
[2024-12-29] MEDS: Senna/Docusate Sodium 1 Tablet 2 TABLET PO (21:40)
[2024-12-30 08:07] VITALS: O2SAT 93
[2024-12-30] MEDS: SACUBITRIL/VALSARTAN 24/26 MG TABLET 1 EACH PO ×2 (08:18→21:05)
[2024-12-30] MEDS: Insulin Glargine-YFGN 100 UNIT/ML Pen 30 UNIT SC (08:19)
[2024-12-30] MEDS: Potassium Chloride Oral Tablet 20 MEQ PO (08:19)
[2024-12-30 08:25] VITALS: BP 134/71; PULSE 74
[2024-12-30 12:04] VITALS: O2SAT 99
--- NOTE | 2024-12-30 13:47 | CASEMGMT ---
Social Work IDT met with patient at bedside, then stepson participated via conference call for care plan meeting. Discussed patient's progress in PT/OT/ST/SN/RDN. Educated to Medicare benefit. Provided pt/family with written communication of insurance process and copay coverage during stay. Discussed pt is celina lift d/t weakness and NWB RLE, and NWB is likely 12 weeks. Thus, it is unlikely pt can return home alone. Pt is total assist with all ADLs. SAP INTEGRATION ARCHITECT educated that pt scored 12/30 on MOCA, which indicates moderate impairment and 24/7 care for cognitive impairment, including needing assistance with meds/finances and not recommended for continued driving, especially with pt's vision. Pt was active with [facility] prior to surgery. SW educated to SNF stay at DC and OOP cost - with or without hospice. Noted pt cannot continue with therapy if hospice is elected. Educated to preserving Medicare skilled days if therapy is elected after WBS is upgraded. Pt stated "I will do whatever I need to do". SW to follow up with pt closer to DC to discuss therapy vs hospice, though, SNF stay will likely need pursued. SW to assist with SNF list and assess finances for payment. Sson had to go back to work and ended call. SW will continue to follow for DC planning. Altagracia Roberto DEPUTY CLERK TECHNOLOGY INTERN
--- NOTE | 2024-12-30 13:52 | EX.PCM.CON.G ---
HPI Consult Data Date of Consult: 12/30/24 HPI Narrative Reason for Consultation: occult stool positive and anemia HPI Narrative: 84-year-old female with a history of HFpEF (previously on hospice), A. Fib. on chronic anticoagulation with apixaban, HLD, COPD on 4L NC at baseline, breast cancer, hypothyroidism, and DM-II. She presented to [facility] ED on 12/18/2024 following a fall, sustaining a leg laceration and distal displaced fibula fracture requiring open reduction and internal fixation. Initial hemoglobin on presentation was 9.6. She was transferred to [facility] for ORIF and subsequently readmitted to [facility] TCU on 12/24/2024 for rehabilitation. Repeat labs on 12/25/2024 revealed a hemoglobin of 8.7 and on 12/27/2024 hemoglobin remained stable at 8.8. Stool occult was checked on 12/25/2024 and was positive, though there were no clinical signs of overt GI bleeding. The patient's hemoglobin remained stable and consistent with expected postoperative changes following ORIF. She is DNR CCA. [facility] Medical History Type 2 diabetes mellitus with hyperglycemia Overactive bladder Iron deficiency anemia Encounter for monitoring diuretic therapy Pneumonia Nausea and vomiting Acute bronchospasm Acute exacerbation of chronic heart failure Daytime hypersomnia Chronic anticoagulation Hypoxia Pleural effusion Cellulitis of left lower leg Diabetic infection of left foot Knee pain, left Proteinuria Morbid obesity Macular degeneration Pleural effusion, left Chest pain Bacteremia Cellulitis of right leg Elevated troponin Acute on chronic diastolic (congestive) heart failure Atrial fibrillation with RVR Cellulitis of right lower leg Encephalopathy acute Sepsis Tricuspid valve insufficiency Ileus due to infection SOB (shortness of breath) (HFpEF) heart failure with preserved ejection fraction CHF (congestive heart failure) Chronic respiratory failure with hypoxia and hypercapnia Anticoagulated Asthma CHF exacerbation Congestive heart failure (CHF) IDDM (insulin dependent diabetes mellitus) Diabetes Rheumatoid arthritis On home oxygen therapy Low iron Insulin dependent diabetes mellitus Wears glasses Wears dentures Cancer History of steroid therapy History of renal disease High cholesterol Restless legs Injury of back Back pain Dietary restriction Shortness of breath on exertion History of pain when walking History of edema History of echocardiogram History of stress test Cardiology follow-up encounter History of CHF (congestive heart failure) History of atrial fibrillation Hyperlipidemia Hypothyroidism Diabetes mellitus Hypertension Chronic kidney disease, stage 3b Former smoker Atrial fibrillation Hypertension Chronic anticoagulation Skin cancer, basal cell Actinic keratosis Skin lesion Skin cancer Chronic diastolic (congestive) heart failure Longstanding persistent atrial fibrillation Diastolic dysfunction Secondary pulmonary arterial hypertension Non-rheumatic tricuspid valve insufficiency Stage 2 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 Right hip pain Disc degeneration, lumbar Fatigue UTI (urinary tract infection) Hypoxia Hypersomnia COPD (chronic obstructive pulmonary disease) Obesity Tobacco dependence in remission CKD (chronic kidney disease) stage 3, GFR 30-59 ml/min Breast cancer Essential (primary) hypertension BMI 39.0-39.9,adult Erosion of bladder suspension mesh SHAKIRA (stress urinary incontinence, female) Home Medications Medication Instructions Recorded Last Taken Type apixaban 2.5 mg tablet (Eliquis) 2.5 mg PO BID blood thinner 08/20/23 07/06/24 09:10 History sacubitril 49 mg-valsartan 51 mg 1 tab PO BID heart 10/21/23 07/06/24 09:10 History tablet (Entresto) rosuvastatin 40 mg tablet 20 mg PO QHS cholesterol 12/02/23 04/24/24 History vibegron 75 mg tablet (Gemtesa) 75 mg PO DAILY follow up needed 04/01/24 07/06/24 09:10 History potassium chloride 20 mEq 20 meq PO DAILY hypokalemia 04/05/24 04/24/24 History tablet,extended release(part/cryst) metoprolol tartrate 100 mg tablet 100 mg PO BID heart 04/25/24 07/06/24 09:10 History levothyroxine 200 mcg tablet 200 mcg PO DAILY thyroid 05/14/24 07/06/24 History levothyroxine 50 mcg tablet 50 mcg PO DAILY THYROID 05/14/24 07/06/24 History diltiazem HCl 240 mg 240 mg PO DAILY heart #90 caps 06/05/24 07/06/24 Rx capsule,extended release 24 hr spironolactone 25 mg tablet 25 mg PO DAILY DIURETIC 06/30/24 07/06/24 09:10 History pantoprazole 40 mg tablet,delayed 40 mg PO DAILY GERD #1 TAB 07/06/24 Unknown Rx release (Protonix) sennosides 8.6 mg-docusate sodium 2 tab PO BID PRN PRN Constipation 07/06/24 Unknown Rx 50 mg tablet (Stimulant Laxative #0 tabs Plus) insulin glargine-yfgn 100 unit/mL 25 unit (0.25 mL) subcut BID 30 07/13/24 Unknown Rx (3 mL) subcutaneous pen days #15 mL insulin lispro 100 unit/mL 5 unit (0.05 mL) subcut TIDAC 30 07/13/24 Unknown Rx subcutaneous pen (Humalog KwikPen days #4.5 mL (U-100) Insulin) acetaminophen 500 mg tablet 1,000 mg PO Q8H Pain 12/24/24 Unknown History albuterol sulfate 90 mcg/actuation 2 puff inhalation Q4H PRN PRN 12/24/24 Unknown History aerosol inhaler dyspnea atorvastatin 40 mg tablet (Lipitor) 40 mg PO DAILY heart health 12/24/24 Unknown History bisacodyl 5 mg tablet 5 mg PO DAILY PRN constipation 12/24/24 Unknown History doxepin 10 mg capsule 10 mg PO QHS sleep 12/24/24 Unknown History ferrous sulfate 325 mg (65 mg 325 mg PO DAILY supplement 12/24/24 Unknown History iron) tablet (Ramírez-Time) furosemide 40 mg tablet 40 mg PO BID diuresis 12/24/24 Unknown History glimepiride 1 mg tablet 1 mg PO DAILY diabetes 12/24/24 Unknown History insulin degludec 100 unit/mL (3 40 unit subcut DAILY diabetes 12/24/24 Unknown History mL) subcutaneous pen (Tresiba FlexTouch U-100 insulin) oxycodone 5 mg capsule 5 mg PO Q4H pain 6-10 12/24/24 Unknown History oxycodone-acetaminophen 5 mg-325 1 tab PO Q4H PRN pain 4-10 12/24/24 Unknown History mg tablet polyethylene glycol 3350 17 17 g PO DAILY constipation 12/24/24 Unknown History gram/dose oral powder (Miralax) polysaccharide iron complex 150 mg 150 mg PO DAILY supplement 12/24/24 Unknown History iron capsule sacubitril 24 mg-valsartan 26 mg 1 tab PO BID [facility] 12/24/24 Unknown History tablet tramadol 50 mg tablet 50 mg PO Q6H pain 1-5 12/24/24 Unknown History Allergy/AdvReac Type Severity Reaction Status Date / Time Sulfa (Sulfonamide Allergy PEELING Verified 06/26/24 14:01 Antibiotics) RASH Family History Mother Colon cancer Cancer skin, bladder Daughter Cancer Thyroid Sister CAD (coronary artery disease) Surgical History History of surgery Hx of colonoscopy Hx of right cataract extraction Hx of left cataract extraction History of excision of lesion Hx of local excision of skin lesion History of cardioversion (03/20/19) History of hysterectomy History of partial mastectomy History of left heart catheterization (05/31/14) Social History household members: none housing: house current occupational status: retired Smoking Status: Former smoker how long ago did patient quit smokin, 2p/day second hand exposure: Yes alcohol intake: current alcohol intake frequency: holidays/special occasions only substance use type: does not use ROS Constitutional Constitutional: Reports change in weight and weakness; Denies chills, fever(s) or weight gain ENT HEENT: Denies headache(s) Cardiovascular Cardiovascular: Denies chest pain or palpitations Respiratory/Chest Respiratory/Chest: Denies cough Gastrointestinal Gastrointestinal: Denies abdominal pain, nausea or vomiting Genitourinary Genitourinary: Denies dysuria Physical Exam Const alert General Appearance: cooperative and well developed Orientation / Consciousness: oriented to person, oriented to place and oriented to time Nutritional Appearance: obese HEENT normocephalic Eyes PERRL Neck full ROM Resp normal respiratory effort, normal air movement and clear to auscultation bilaterally Cardio regular rate and regular rhythm GI normal to inspection, nondistended, normoactive bowel sounds, non-tender and non-distended Extremity normal capillary refill Extremity Narrative: Right lower extremity splint: C/D/I General Extremity: Negative for edema Psych mental status grossly normal and affect normal Appearance: appropriate Attitude: calm Activity / Motor Behavior: appropriate eye contact Speech: normal speech Thought Process: normal thought process Thought Content: normal thought content Attention / Concentration: attention grossly intact Memory / Cognition: memory grossly intact Judgement: judgement good Medical Records Data Attestation: I reviewed the patient's medical records Lab / Micro Data Attestation: I reviewed the patient's lab results. 12/27/24 06:05 12/25/24 04:50 Labs: Laboratory Results - last 24 hr 12/29/24 21:25: POC Glucose 155 H 12/30/24 06:26: POC Glucose 95 Assessment & Plan Assessment/Plan (1) Acute postoperative anemia due to expected blood loss: PLAN: Plan 84-year-old female with a history of HFpEF (previously on hospice), A. Fib. on chronic anticoagulation with apixaban, HLD, COPD on 4L NC at baseline, remote history of breast cancer approximately 20 years ago, evaluated for anemia and a positive occult stool testing. Her hemoglobin was 9.6 (baseline) on presentation to the emergency department after a fall with distal fibula fracture and appropriately declined postoperatively to 8.7-8.8 following ORIF, consistent with expected perioperative blood loss. She denies abdominal pain, change in bowel habits, hematochezia, melena, nausea, vomiting, or hematemesis. She denies any family history of colon cancer, although review of medical record indicates her mother had colon cancer. Her last colonoscopy was approximately 5-10 years ago and revealed colon polyps. Weight at discharge in June 2024 was 268 pounds and she is now 235 pounds; she attributes this to reduced oral intake. The mild, stable anemia is most consistent with postoperative and chronic disease etiology rather than an active GI bleed. However, given her reported unintentional weight loss and history of prior polyps, a colonoscopy could be considered if consistent with overall goals of care. I recommend continued clinical monitoring and avoidance of further unnecessary occult stool testing in the absence of overt GI symptoms or hemoglobin decline. I have ordered a CBC to be repeated at this time.
[2024-12-30 16:00] VITALS: BP 134/71; PULSE 74; RESP 18; TEMP 36.6; O2SAT 96
[2024-12-30 21:00] VITALS: PULSE 86; O2SAT 94
[2024-12-30 21:06] VITALS: BP 124/59; PULSE 86
[2024-12-30] MEDS: Senna/Docusate Sodium 1 Tablet 2 TABLET PO (21:06)
[2024-12-30] MEDS: Doxepin Hydrochloride 10 MG Capsule PO (21:07)
[2024-12-31 09:05] VITALS: O2SAT 94
--- NOTE | 2024-12-31 09:15 | MDS.RN ---
Voicemail forwarded to this music writer from Marleny (dtr). Marleny voiced she was upset she was not included in residents care plan meeting held 12/30/2024. Returned phone call to Marleny and apologized that she was not included in meeting yesterday. Explained we notify the person listed as next of kin on demographic sheet in chart which is resident's [id number]. I informed Jason to notify any other family members of meeting date and time. [place] was aware Jason was
--- NOTE | 2024-12-31 09:21 | MDS.RN ---
Voicemail forwarded from Altagracia older adult social work specialist to this insurance underwriter from Marleny (dtr). Marleny voiced she was upset she was not included in resident care plan meeting held 12/30/2024. This insurance underwriter contacted daughter, Marleny by phone to offer an apology regarding not being notified of the care plan meeting. Explanation of next-of-kin procedure was provided, with resident's step-son Jason listed as next-of-kin. Next-of-kin are encouraged to notify other family members of meeting scheduled. Marleny verbalized dissatisfaction and did not accept apology. Emotional support and listening provided allowing Marleny to verbalized her frustration. Communicated that on the covering older adult social work specialist's (Becca) admission assessment, resident reported Jason as medical power of commonwealth attorney. Marleny stated " I am her blood relative, she gave to me, not Jason." Updated Marleny that older adult social work specialist Altagracia will be updated and will follow up with her. Upon ending conversation, Marleny stated " I don't know why you even called" then hung up.
[2024-12-31 09:37] VITALS: BP 90/49; PULSE 71; RESP 18; TEMP 36.7; O2SAT 97
[2024-12-31] MEDS: SACUBITRIL/VALSARTAN 24/26 MG TABLET 1 EACH PO ×2 (09:47→21:49)
[2024-12-31] MEDS: Potassium Chloride Oral Tablet 20 MEQ PO (09:48)
[2024-12-31] MEDS: Insulin Glargine-YFGN 100 UNIT/ML Pen 30 UNIT SC (09:48)
[2024-12-31] MEDS: Senna/Docusate Sodium 1 Tablet 2 TABLET PO ×2 (09:49→21:50)
[2024-12-31 09:55] VITALS: BP 107/55; PULSE 73
[2024-12-31 09:57] VITALS: PULSE 73
--- NOTE | 2024-12-31 10:35 | CASEMGMT ---
Social Work JOSH received VM upon arrival this date from pt's dtr, Marleny, who voiced anger about not being involved in pt's POC meeting yesterday, as "I am the blood relative. I am her daughter. Jason is her step son", and wanted to know why she was excluded from the meeting. Dtr also voiced in the VM that she received Jason's phone recording of the meeting and questioned why pt's secondary insurance was not mentioned in assisting with covering pt's stay. - JOSH updated [facility] PHYSICIAN who schedules the POC meetings and requested she contact the dtr to discuss the protocol for participation in those meetings, as this worker is not involved in that process. [facility] PH[facility]IC[facility] reported back to this worker on conversation. See [facility] PHYSICIAN note. - SW phoned dtr in return to answer questions for dtr. Dtr reiterated her first complaint of not being contacted at POC meeting, "I am her blood relative. Doesn't that mean anything?". SW reiterated explanation [facility] PHYSICIAN provided to pt, reinforcing that is the protocol and the pt's preference. Pt did not state to exclude dtr from contact. Pt did report upon admission that Jason was HCPOA and requested he was listed as the first contact. Dtr replied that pt may be doing that since Jason is local, and dtr is in [place]. SW explained dtr is listed as the second contact and can still receive and provide information to the pt's care team, and can still remain involved in pt's condition and updates. SW offered to follow up with pt on her preferences for contacts and inquire further about advance directives. Dtr denied having HCPOA and unsure if documents are completed. JOSH then redirected to the second question on pt's primary and secondary insurance. JOSH explained the same statement given at the POC meeting and referenced the written communication left in pt's room, that Medicare is primary insurance - covers days 1-20 at 100%, and days 21-100 there is a copay of $209.50/day, which the secondary insurance has the opportunity to cover, however, the patient/family would call the secondary insurance directly if they want to inquire about that copay coverage. Reinforced that those MC days are not guaranteed or automatic. IDT reviews the pt weekly to determine if pt continues to meet the MC criteria, then this worker would notify of a DC timeframe and assist with DC planning. Dtr appreciative of explanation. Dtr voiced pt cannot return home at this LOC and only if she returns to [place]. SW agreed, and the DC plan is likely a SNF. Dtr agreed and stated pt "only receives SS and cannot afford a SNF, and the house is in reverse mortgage, so the bank owns that". SW appreciative of information and asked further questions to determine Medicaid eligibility. Dtr stated she does not have access to pt's bank accounts, but voiced willingness to assist in that information. Dtr then digressed to explained that dtr's plan was to retire about two weeks ago, but her company asked her to stay on until mid-February, which dtr agreed to. However, dtr reported the day she committed to the working, is the day the pt fell, and dtr is carrying guilt to not being present to assist pt. SW provided active listening and validated feelings. SW explained dtr can still assist with making phone calls, getting access to her bank account, reviewing SNFs, and all of that can be down in [place]; the outcome or level of involvement/assistance would be unchanged if she was local or not working. Dtr expressed appreciation for that insight, and agrees she can help in any way and wants to help. SW appreciative of the dtr's willingness to help and it would be beneficial to the pt and SW with this assistance. SW explained even though there is not a DC date or timeframe yet, since SNF is the outcome, to allow this time to begin working on those plans, as the tasks take time. Dtr agreed. SW provided steps - to speak with pt on permission gaining access to bank accounts and financial information to apply for Medicaid, then selecting SNF preferences with pt. Dtr agreed and provided email address. SW provided list of SNFs in preferred geographical area, INN with pt’s insurance, including quality and resource data via CarePort Guide to email. Educated to using Medicare.gov/nursinghomecompare for further research on SNFs. Dtr expressed understanding and appreciative of SW assistance and understanding. SW will continue to follow for DC planning and support. Altagracia Roberto ACID OPERATOR PERSONAL LINES ADVISOR
[2024-12-31 16:18] VITALS: O2SAT 92
[2024-12-31 21:49] VITALS: BP 117/98; PULSE 63
[2024-12-31] MEDS: Doxepin Hydrochloride 10 MG Capsule PO (21:50)
[2025-01-01 07:25] VITALS: O2SAT 92
[2025-01-01 08:08] LABS: Hematocrit 26.7 % (37-47); Hemoglobin 8.3 g/dL (12.0-15.0); Immature Granulocytes Count 0.300 X10^3/uL (0.0-0.0); Mean Corp Hgb Conc 31.1 g/dL (32-36); Mean Corpuscular Volume 88.4 fL (81-99); Mean Platelet Vol. 9.4 fl (6.2-12.0); NRBC Flagged by Analyzer 0 % (0-5); Platelet Count 315 K/mm3 (150-450); RBC Distribution Width CV 16.6 % (11.6-14.6); RBC Distribution Width SD 53.1 fl (35.1-43.9); Red Blood Count 3.02 M/mm3 (4.2-5.4); White Blood Count 8.3 K/mm3 (4.4-11.0)
[2025-01-01 08:43] LABS: Anion Gap 9 (5-15); BUN 57 mg/dL (4-19); BUN/Creat Ratio 29.3 RATIO (10-20); Calcium,Total 9.3 mg/dL (7.6-11.0); Carbon Dioxide 30.1 mmol/L (21.0-32.0); Chloride 98 mmol/L (98-108); Estimated Creatinine Clearance 26.82 ml/min (50-250); Glucose 96 mg/dL (70-99); Potassium 3.9 mmol/L (3.3-5.1)
--- NOTE | 2025-01-01 09:20 | NURSING ---
Motorcycle Builder Note; MDS for 12/31/2024 Complete
[2025-01-01] MEDS: Potassium Chloride Oral Tablet 20 MEQ PO (09:48)
[2025-01-01 09:49] VITALS: PULSE 71
[2025-01-01] MEDS: SACUBITRIL/VALSARTAN 24/26 MG TABLET 1 EACH PO ×2 (09:50→22:28)
[2025-01-01] MEDS: Insulin Glargine-YFGN 100 UNIT/ML Pen 30 UNIT SC (10:08)
[2025-01-01] MEDS: Tuberculin,Purif.prot.deriv. 50 TU/ML Vial 0.1 ML ID (10:08)
[2025-01-01] MEDS: Senna/Docusate Sodium 1 Tablet 2 TABLET PO (10:39)
[2025-01-01 11:00] VITALS: BP 122/64; PULSE 71; RESP 28; TEMP 36.2; O2SAT 90
[2025-01-01 11:46] VITALS: O2SAT 96
[2025-01-01 22:29] VITALS: BP 105/63; PULSE 75
[2025-01-01] MEDS: Doxepin Hydrochloride 10 MG Capsule PO (22:30)
[2025-01-01 23:21] VITALS: PULSE 73; RESP 18; O2SAT 91
--- NOTE | 2025-01-01 23:33 | NURSING ---
Dressing changed to RLE, patient tolerated well. No s/sx infection. Sutures intact.
[2025-01-02 07:43] VITALS: O2SAT 94
[2025-01-02 09:20] VITALS: PULSE 60
[2025-01-02] MEDS: Potassium Chloride Oral Tablet 20 MEQ PO (09:20)
[2025-01-02] MEDS: Senna/Docusate Sodium 1 Tablet 2 TABLET PO ×2 (09:20→21:44)
[2025-01-02] MEDS: Polyethylene Glycol 3350 17 GM PACKET PO (09:20)
[2025-01-02] MEDS: SACUBITRIL/VALSARTAN 24/26 MG TABLET 1 EACH PO ×2 (09:20→21:44)
[2025-01-02 09:27] VITALS: BP 117/52; PULSE 60; RESP 18; TEMP 36.4; O2SAT 97
[2025-01-02] MEDS: Insulin Glargine-YFGN 100 UNIT/ML Pen 30 UNIT SC (10:02)
[2025-01-02 21:44] VITALS: PULSE 70
[2025-01-02] MEDS: Doxepin Hydrochloride 10 MG Capsule PO (21:45)
[2025-01-03 07:06] VITALS: O2SAT 94
[2025-01-03] MEDS: Polyethylene Glycol 3350 17 GM PACKET PO (08:42)
[2025-01-03] MEDS: Senna/Docusate Sodium 1 Tablet 2 TABLET PO (08:42)
[2025-01-03] MEDS: Potassium Chloride Oral Tablet 20 MEQ PO (08:42)
[2025-01-03] MEDS: Insulin Glargine-YFGN 100 UNIT/ML Pen 30 UNIT SC (08:43)
[2025-01-03] MEDS: Magnesium Citrate 300 ML PO (08:44)
[2025-01-03 10:17] VITALS: PULSE 47
[2025-01-03 10:19] VITALS: BP 112/51; PULSE 47; RESP 20; TEMP 36.4; O2SAT 99
[2025-01-03 21:39] VITALS: BP 133/59; PULSE 85
[2025-01-03] MEDS: SACUBITRIL/VALSARTAN 24/26 MG TABLET 1 EACH PO (21:40)
[2025-01-03] MEDS: Doxepin Hydrochloride 10 MG Capsule PO (21:42)
[2025-01-04 08:00] VITALS: O2SAT 94
[2025-01-04 08:37] LABS: Hematocrit 30.4 % (37-47); Hemoglobin 9.1 g/dL (12.0-15.0); Immature Granulocytes Count 0.170 X10^3/uL (0.0-0.0); Mean Corp Hgb Conc 29.9 g/dL (32-36); Mean Corpuscular Volume 88.6 fL (81-99); Mean Platelet Vol. 9.7 fl (6.2-12.0); NRBC Flagged by Analyzer 0 % (0-5); Platelet Count 327 K/mm3 (150-450); RBC Distribution Width CV 17.1 % (11.6-14.6); RBC Distribution Width SD 53.7 fl (35.1-43.9); Red Blood Count 3.43 M/mm3 (4.2-5.4); White Blood Count 8.1 K/mm3 (4.4-11.0)
[2025-01-04 08:57] VITALS: BP 122/63; PULSE 83; RESP 16; TEMP 36.4; O2SAT 97
[2025-01-04] MEDS: Insulin Glargine-YFGN 100 UNIT/ML Pen 30 UNIT SC (09:01)
[2025-01-04] MEDS: SACUBITRIL/VALSARTAN 24/26 MG TABLET 1 EACH PO ×2 (09:01→20:36)
[2025-01-04] MEDS: Potassium Chloride Oral Tablet 20 MEQ PO (09:01)
[2025-01-04 09:02] VITALS: PULSE 83
--- NOTE | 2025-01-04 10:14 | NURSING ---
Offered covid vaccine, resident reports she already had for this season.
--- NOTE | 2025-01-04 11:26 | NURSING ---
Addendum entered by Shanthi Mathews 01/05/25 07:11: xray cancelled, office preferred to do at appt. Addendum entered by Shanthi Mathews 01/04/25 13:45: Appt made for 01/07/25 at 0920, Physicians cot transport at 0800. Updated resident and Jason via . Addendum entered by Shanthi Mathews 01/04/25 12:33: Call back from office, surgeon gave orders to do xrays here, send disc with her to appt. He does want to see in person. Updated resident, asked who she'd like updated, she said Jason. Notified him via phone. Original Note: Spoke with Doris in scheduling with Dr. Kiser. She says physician is out of office and his nurse is as well. Took message about resident not wanting to travel to f/u, seeing if xrays and suture removal can be done here. She will have his nurse call TCU tomorrow.
--- NOTE | 2025-01-04 16:06 | WOUNDNOTE ---
wound photo: right lower leg (anterior view)
--- NOTE | 2025-01-04 16:06 | WOUNDNOTE ---
wound photo: right lower leg (medial view)
--- NOTE | 2025-01-04 16:07 | WOUNDNOTE ---
wound photo: right lower leg (lateral view)
[2025-01-04] MEDS: Doxepin Hydrochloride 10 MG Capsule PO (20:35)
[2025-01-04 20:36] VITALS: PULSE 80
[2025-01-04] MEDS: APIXABAN 2.5 MG TABLET (WCH) PO (20:36)
[2025-01-04] MEDS: Senna/Docusate Sodium 1 Tablet 2 TABLET PO (20:40)
[2025-01-05 07:38] VITALS: BP 113/50; PULSE 73; RESP 18; TEMP 35.9; O2SAT 93
[2025-01-05 07:45] VITALS: PULSE 73
[2025-01-05] MEDS: APIXABAN 2.5 MG TABLET (WCH) PO ×2 (07:45→20:25)
[2025-01-05] MEDS: Senna/Docusate Sodium 1 Tablet 2 TABLET PO (07:45)
[2025-01-05] MEDS: Potassium Chloride Oral Tablet 20 MEQ PO (07:45)
[2025-01-05] MEDS: SACUBITRIL/VALSARTAN 24/26 MG TABLET 1 EACH PO ×2 (07:45→20:25)
[2025-01-05] MEDS: Insulin Glargine-YFGN 100 UNIT/ML Pen 30 UNIT SC (07:46)
[2025-01-05 08:00] VITALS: BMI 34.9
[2025-01-05 12:10] VITALS: O2SAT 98
--- NOTE | 2025-01-05 15:14 | MDS.RN ---
Information for the MDS was obtained from review of the clinical record, interview of resident, staff, and direct observation of resident’s care.
--- NOTE | 2025-01-05 15:16 | CASEMGMT ---
Socila Work SW continues to exchange emails with dtr. Dtr is gaining pt's financial information to assist with Medicaid process. Dtr submitted POA to [facility] bank today to gain access to pt's bank accounts, which will take about a week to process. Pt appears elgibile for DENISHA and will need to transfer life insurance to home. - SW spoke with pt at bedside. Explained therapy is reporting little progress d/t NWBS and inability to seek progress until WB is upgraded. Recommending a SNF until pt can continue with therapy after WBS and then determine returning home. SW explained conversations with dtr and pt is likely able to be approved for Medicaid. Pt expressed understanding and agreeable to SNF and applying for DENISHA. SW educated to referral to [facility]. Pt is also agreeable to transferring Life Insurance to home. SW inquired about preference. Pt prefers [facility]. SW to update dtr to assist with that irrevocable transfer. SW provided list of SNFs in preferred geographical area, INN with pt’s insurance, including quality and resource data via CarePort Guide. Pt to review and notify this worker of preferences. - SW updated dtr via email with conversation. Dtr spoke with pt and prefers [facility], [facility] and [facility]. SW to place referrals. SW sent referral to [facility]. Will continue to follow. Altagracia LEWIS WASTE CHOPPER
--- NOTE | 2025-01-05 18:35 | CASEMGMT ---
Social Work SW received additional emails from dtr asking several questions. SW phoned dtr to thoroughly answer questions. Dtr expressed some cognitive concerns she noted when speaking with pt via phone, such as "they gave me lunch at 4 pm" or "Jeopardy isn't on tonight" when it was 3 pm and Jeopardy routinely starts at 7 pm. SW confirmed IDT has identified cognitive deficits with pt. ST is working with pt as well Offered for JEWELRY DIPPER to contact dtr to provide specific updates and answer questions. Dtr agreeable and appreciative. SW answered questions pertaining to coverage at a LTC facility with Medicare and Medicaid. Explained after WBS is upgraded, pt can be skilled again through Medicare, then it can be determined if pt can return home or not. Though, SW explained pt stated during earlier conversation that she is realistic that she may need to be in a facility long-term. Dtr expressed relief with this information and agrees as dtr reported pt was not thriving at home alone prior. SW confirmed from previous stay it was not recommended for pt to be home alone, even with hospice. Dtr inquired about pt returning to hospice services. SW reexplained that as long as pt is receiving or wanting to receive therapy after WBS is upgraded, hospice would not be involved. Though, after that or if pt does not want to continue with therapy, pt can elect hospice again, and hospice can provide services in the SNF. Dtr inquired about next steps for DENISHA. SW educated to contact home to get process on how to transfer life insurance and make it irrevocable. Dtr expressed understanding. Dtr appreciative of ongoing time and assistance from this worker. SW thanked dtr for continuing to assist pt with her needs, care, and decision for DC planning. SW will continue to follow. JOSH sent referrals to [facility], [facility] and SW via [employer]. Altagracia Roberto SCREEN ROLLER COSMETIC CONSULTANT
[2025-01-05] MEDS: Doxepin Hydrochloride 10 MG Capsule PO (20:24)
[2025-01-05 20:25] VITALS: PULSE 83
[2025-01-06] MEDS: Polyethylene Glycol 3350 17 GM PACKET PO (09:11)
[2025-01-06] MEDS: Senna/Docusate Sodium 1 Tablet 2 TABLET PO ×2 (09:11→21:47)
[2025-01-06] MEDS: Insulin Glargine-YFGN 100 UNIT/ML Pen 30 UNIT SC (09:11)
[2025-01-06 09:12] VITALS: PULSE 81
[2025-01-06] MEDS: APIXABAN 2.5 MG TABLET (WCH) PO ×2 (09:12→21:46)
[2025-01-06] MEDS: SACUBITRIL/VALSARTAN 24/26 MG TABLET 1 EACH PO ×2 (09:12→21:46)
[2025-01-06] MEDS: Potassium Chloride Oral Tablet 20 MEQ PO (09:13)
[2025-01-06 09:29] VITALS: BP 123/62; PULSE 91; RESP 18; TEMP 36.2; O2SAT 95
[2025-01-06 13:53] VITALS: BP 130/60; PULSE 81
[2025-01-06 19:40] VITALS: PULSE 72; O2SAT 93
[2025-01-06 20:06] LABS: AST(SGOT) 14 U/L (<=31); Alanine Aminotransfer ALT/SGPT 6 U/L (<=34); Albumin, Serum 2.8 g/dL (3.4-4.8); Alkaline Phosphatase 85 U/L (35-104); Anion Gap 9 (5-15); BUN 63 mg/dL (4-19); BUN/Creat Ratio 31.1 RATIO (10-20); Calcium,Total 9.2 mg/dL (7.6-11.0); Carbon Dioxide 32.3 mmol/L (21.0-32.0); Chloride 96 mmol/L (98-108); Estimated Creatinine Clearance 25.33 ml/min (50-250); Globulin 3.0 g/dL (2.2-4.2); Glucose 179 mg/dL (70-99); Potassium 4.4 mmol/L (3.3-5.1)
[2025-01-06 20:38] LABS: Hematocrit 27.1 % (37-47); Hemoglobin 8.2 g/dL (12.0-15.0); Immature Granulocytes Count 0.100 X10^3/uL (0.0-0.0); Mean Corp Hgb Conc 30.3 g/dL (32-36); Mean Corpuscular Volume 90.0 fL (81-99); Mean Platelet Vol. 9.7 fl (6.2-12.0); NRBC Flagged by Analyzer 0 % (0-5); Platelet Count 325 K/mm3 (150-450); RBC Distribution Width CV 17.4 % (11.6-14.6); RBC Distribution Width SD 56.2 fl (35.1-43.9); Red Blood Count 3.01 M/mm3 (4.2-5.4); White Blood Count 8.7 K/mm3 (4.4-11.0)
[2025-01-06 21:42] VITALS: BP 133/71; PULSE 83
[2025-01-06 21:46] VITALS: PULSE 83
[2025-01-06] MEDS: Doxepin Hydrochloride 10 MG Capsule PO (21:47)
[2025-01-06 22:56] LABS: Mucous, Urine 0 SEEN /hpf (<or=2+)
[2025-01-06 23:10] LABS: Color, Urine Yellow (Yellow); Glucose, Dipstick Normal (Normal); Ketone-Dipstick Negative (Negative); Leukocyte Esterase-Dipstick 100 /ul (Negative); Nitrite-Dipstick Negative (Negative); Occult Blood-Urine 10 /ul (Negative); Protein-Dipstick 30 mg/dl (Negative); Specific Gravity, Urine 1.010 (1.002-1.030); Urine Bilirubin Dipstick Negative (Negative)
[2025-01-06 23:26] LABS: Squamous Epithelial Cells - UA 0-5 SEEN /hpf (5-10)
[2025-01-06 23:30] LABS: Red Blood Cells-Urine 0-5 SEEN /hpf (0-5)
[2025-01-07 05:35] VITALS: BP 119/57; PULSE 65
--- NOTE | 2025-01-07 05:40 | NURSING ---
refinery technician reported pt found sitting on side of bed. Pt stated she was "trying to get up to use the bathroom." Educated pt to utilize call light for staff assistance. Written communication left for Dr. Douglas requesting order for personal alarms.
[2025-01-07 07:39] VITALS: PULSE 71
[2025-01-07] MEDS: Potassium Chloride Oral Tablet 20 MEQ PO (07:39)
[2025-01-07] MEDS: APIXABAN 2.5 MG TABLET (WCH) PO ×2 (07:39→22:30)
[2025-01-07] MEDS: SACUBITRIL/VALSARTAN 24/26 MG TABLET 1 EACH PO ×2 (07:41→22:31)
[2025-01-07] MEDS: Insulin Glargine-YFGN 100 UNIT/ML Pen 30 UNIT SC (07:41)
[2025-01-07 07:45] VITALS: BP 124/69; PULSE 71; RESP 17; TEMP 36; O2SAT 96
--- NOTE | 2025-01-07 08:17 | NURSING ---
transport here at this time for surgeon chetan
--- NOTE | 2025-01-07 12:00 | NURSING ---
pt returned from appt via cot, assisted to bed via slide transfer x4 staff.
[2025-01-07 12:23] VITALS: BP 129/66; PULSE 56; RESP 18; TEMP 36.2; O2SAT 97
[2025-01-07] MEDS: Senna/Docusate Sodium 1 Tablet 2 TABLET PO ×2 (12:28→22:31)
--- NOTE | 2025-01-07 13:07 | NURSING ---
Dr Bob ordered a Tall walker boot but to remain NWB to RT LE. leave new splint on pt for 48 hrs, can come off on 01/09 afternoon and apply boot, ok to shower. f/u 4 wks for repeat xrays
[2025-01-07 17:10] VITALS: RESP 18; O2SAT 94
[2025-01-07 22:31] VITALS: BP 124/54; PULSE 69
[2025-01-07] MEDS: Doxepin Hydrochloride 10 MG Capsule PO (22:33)
[2025-01-08 06:43] LABS: Hematocrit 27.2 % (37-47); Hemoglobin 8.3 g/dL (12.0-15.0); Immature Granulocytes Count 0.090 X10^3/uL (0.0-0.0); Mean Corp Hgb Conc 30.5 g/dL (32-36); Mean Corpuscular Volume 89.5 fL (81-99); Mean Platelet Vol. 9.9 fl (6.2-12.0); NRBC Flagged by Analyzer 0 % (0-5); Platelet Count 331 K/mm3 (150-450); RBC Distribution Width CV 17.8 % (11.6-14.6); RBC Distribution Width SD 57.1 fl (35.1-43.9); Red Blood Count 3.04 M/mm3 (4.2-5.4); White Blood Count 7.4 K/mm3 (4.4-11.0)
[2025-01-08 06:58] LABS: Anion Gap 8 (5-15); BUN 59 mg/dL (4-19); BUN/Creat Ratio 30.2 RATIO (10-20); Calcium,Total 8.9 mg/dL (7.6-11.0); Carbon Dioxide 32.2 mmol/L (21.0-32.0); Chloride 101 mmol/L (98-108); Estimated Creatinine Clearance 25.97 ml/min (50-250); Glucose 118 mg/dL (70-99); Potassium 4.0 mmol/L (3.3-5.1)
[2025-01-08 07:39] VITALS: O2SAT 96
[2025-01-08 09:07] VITALS: BP 122/65; PULSE 84; RESP 16; TEMP 36.5; O2SAT 94
[2025-01-08] MEDS: APIXABAN 2.5 MG TABLET (WCH) PO ×2 (09:14→22:16)
[2025-01-08] MEDS: Insulin Glargine-YFGN 100 UNIT/ML Pen 30 UNIT SC (09:14)
[2025-01-08] MEDS: SACUBITRIL/VALSARTAN 24/26 MG TABLET 1 EACH PO ×2 (09:14→22:16)
[2025-01-08 09:15] VITALS: PULSE 84
[2025-01-08] MEDS: Potassium Chloride Oral Tablet 20 MEQ PO (09:15)
[2025-01-08] MEDS: Senna/Docusate Sodium 1 Tablet 2 TABLET PO (09:16)
--- NOTE | 2025-01-08 09:19 | CASEMGMT ---
Social Work Medicaid application was submitted- pending case number is [id number] CC accepted, CC accepted and W cannot accept. - updated dtr via email. [facility] is FOC. notified [facility] and they will speak with dtr to complete financial assessment. updated [facility] with pending number. Once [facility] provides full approval, DC date can be set. Altagracia CHÁVEZ
--- NOTE | 2025-01-08 14:20 | WOUNDNOTE ---
Pt had follow up with surgeon yesterday and sutures were removed. dressing is to remain in place for 48 hours. will continue to follow.
--- NOTE | 2025-01-08 16:14 | CASEMGMT ---
Addendum entered by Altagracia Roberto 01/11/25 09:17: Cot transport scheduled through [facility] for 1100 d/t celina lift and NWB RLE. Original Note: Social Work [facility] can officially accept pt. IDT set DC for 01/12. SW updated CC. updated dtr via email. - SW spoke with pt to notify [facility] can accept and issued NOMNC for LCD 01/11, DC 01/12. Explained appeal rights and pt denied appealing. SW to coordinate transport. SW completed BIMS () and PHQ-2 () for MDS assessment. - PASRR completed in [facility] and faxed for LOC. - Plan: DC 01/12 to [facility], intermediate, part B therapies Altagracia Roberto RECORDS MANAGEMENT MANAGER WOOD MILLING MACHINE OPERATOR
[2025-01-08 16:23] VITALS: O2SAT 99
[2025-01-08 22:00] VITALS: PULSE 89; RESP 18; O2SAT 95
[2025-01-08] MEDS: Doxepin Hydrochloride 10 MG Capsule PO (22:14)
[2025-01-08 22:17] VITALS: BP 142/66; PULSE 89
[2025-01-09 06:45] VITALS: PULSE 68; RESP 16
[2025-01-09 07:11] VITALS: O2SAT 94
[2025-01-09 07:21] LABS: Magnesium 2.7 mg/dL (1.5-2.2)
[2025-01-09 08:34] VITALS: BP 137/63; PULSE 67; RESP 17; TEMP 36.4; O2SAT 96
[2025-01-09] MEDS: Insulin Glargine-YFGN 100 UNIT/ML Pen 30 UNIT SC (08:50)
[2025-01-09] MEDS: SACUBITRIL/VALSARTAN 24/26 MG TABLET 1 EACH PO ×2 (08:50→21:36)
[2025-01-09] MEDS: APIXABAN 2.5 MG TABLET (WCH) PO ×2 (08:50→21:36)
[2025-01-09 08:51] VITALS: PULSE 67
[2025-01-09] MEDS: Potassium Chloride Oral Tablet 20 MEQ PO (08:51)
[2025-01-09] MEDS: Polyethylene Glycol 3350 17 GM PACKET PO (08:52)
--- NOTE | 2025-01-09 17:18 | NURSING ---
dr pugh notified pt mag 2.7
[2025-01-09 21:35] VITALS: BP 110/85; PULSE 79
[2025-01-09] MEDS: Doxepin Hydrochloride 10 MG Capsule PO (21:35)
[2025-01-09] MEDS: Senna/Docusate Sodium 1 Tablet 2 TABLET PO (21:36)
[2025-01-10 08:44] VITALS: BP 132/62; PULSE 79; RESP 18; TEMP 36.7; O2SAT 95
[2025-01-10] MEDS: SACUBITRIL/VALSARTAN 24/26 MG TABLET 1 EACH PO ×2 (08:53→21:56)
[2025-01-10] MEDS: APIXABAN 2.5 MG TABLET (WCH) PO ×2 (08:53→21:56)
[2025-01-10] MEDS: Insulin Glargine-YFGN 100 UNIT/ML Pen 30 UNIT SC (08:53)
[2025-01-10 08:54] VITALS: PULSE 79
[2025-01-10] MEDS: Potassium Chloride Oral Tablet 20 MEQ PO (08:54)
[2025-01-10] MEDS: Polyethylene Glycol 3350 17 GM PACKET PO (08:54)
[2025-01-10] MEDS: Senna/Docusate Sodium 1 Tablet 2 TABLET PO ×2 (08:54→22:01)
[2025-01-10] MEDS: Magnesium Citrate 300 ML PO (16:41)
[2025-01-10 19:58] VITALS: PULSE 76; O2SAT 98
[2025-01-10 21:49] VITALS: BP 135/68; PULSE 79
[2025-01-10] MEDS: Doxepin Hydrochloride 10 MG Capsule PO (21:57)
[2025-01-10 21:58] VITALS: BP 135/68; PULSE 79
[2025-01-11 05:20] VITALS: BP 115/61; PULSE 74; O2SAT 94
[2025-01-11 07:44] VITALS: BP 133/69; PULSE 77; RESP 18; TEMP 36.7; O2SAT 98
[2025-01-11] MEDS: APIXABAN 2.5 MG TABLET (WCH) PO ×2 (07:46→21:29)
[2025-01-11] MEDS: SACUBITRIL/VALSARTAN 24/26 MG TABLET 1 EACH PO ×2 (07:46→21:28)
--- NOTE | 2025-01-11 07:46 | DS.PCM_ITS ---
Providers Date of Admission: 12/24/24 Primary Care Physician: Dr. Alexy Douglas MD Consultations 12/24/24 18:05 Consult: Onc/Wound/floor framer Routine Comment: 12/26/24 17:54 Consult: Gastroenterology Routine Consulting Provider: [facility] Reason for Consult: anemia, + occult stool EMERGENT Consult: No MD Notified: Yes Date Notified: 12/28/24 Time Notified: 13:05 Method of Notification: Text Reason For Visit: FALL/ RT ANKLE FRACTURE Diagnosis Discharge Diagnosis (1) Acute postoperative anemia due to expected blood loss: Status: Acute Code(s): D62 - Acute posthemorrhagic anemia Plan 84 year old female with below past medical history hospitalized open right ankle fracture, underwent right ankle irrigation, debridement with ORIF 12/19/[address] Ferrer, admitted to TCU with debility, here for rehabilitation, strengthening, prior to discharge home alone with hospice. * Debility - PT/OT. * Pain - Tylenol 1000mg q8, Tramadol 50mg q6 prn pain (1-5), Oxycodone 5mg q4 prn pain (6-10). * Bowel - Miralax 17gm daily, senna/colace 2 tablets bid, Magnesium citrate 300mL daily prn. * Adult immunization - Administer pneumonia vaccine, covid vaccine, flu vaccine as appropriate. * DVT prophylaxis - Eliquis. * COPD - Albuterol 2 puffs q4 prn. * Atrial fibrillation - Metoprolol 100mg bid, Diltiazem 240mg daily, Eliquis 2.5mg bid. * Hyperlipidemia - Atorvastatin 40mg qhs. * Chronic HFpEF - Metoprolol 100mg bid, Entresto 24/26mg bid, Furosemide 40mg bid. * Diabetes Mellitus II - Glimepiride 1mg daily, Glargine 40 units daily. * Iron deficiency anemia - Ferrex 150mg daily. * Hypothyroidism - Levothyroxine 200mcg daily. * Hypokalemia - KCL 20meq daily. Medications at Discharge Home Medications apixaban 2.5 mg tablet (Eliquis) 2.5 mg PO BID blood thinner 08/20/23 potassium chloride 20 mEq tablet,extended release(part/cryst) 20 meq PO DAILY hypokalemia 04/05/24 metoprolol tartrate 100 mg tablet 100 mg PO BID heart 04/25/24 levothyroxine 200 mcg tablet 200 mcg PO DAILY thyroid 05/14/24 diltiazem HCl 240 mg capsule,extended release 24 hr 240 mg PO DAILY heart #90 caps 06/05/24 pantoprazole 40 mg tablet,delayed release (Protonix) 40 mg PO DAILY GERD #1 TAB 07/06/24 albuterol sulfate 90 mcg/actuation aerosol inhaler 2 puff inhalation Q4H PRN PRN dyspnea 12/24/24 atorvastatin 40 mg tablet (Lipitor) 40 mg PO DAILY heart health 12/24/24 doxepin 10 mg capsule 10 mg PO QHS sleep 12/24/24 glimepiride 1 mg tablet 1 mg PO DAILY diabetes 12/24/24 polyethylene glycol 3350 17 gram/dose oral powder (Miralax) 17 g PO DAILY constipation 12/24/24 polysaccharide iron complex 150 mg iron capsule 150 mg PO DAILY supplement 12/24/24 sacubitril 24 mg-valsartan 26 mg tablet 1 tab PO BID [facility] 12/24/24 OXYGEN - Supplemental ([facility] INFORMATIONAL USE ONLY) 01/02/25 acetaminophen 500 mg tablet 1,000 mg (2 x 500 mg) PO Q8 #0 tabs 01/11/25 empagliflozin 10 mg tablet (Jardiance) 10 mg PO DAILY #0 tabs 01/11/25 furosemide 40 mg tablet 40 mg PO BIDLX #0 tabs 01/11/25 insulin glargine-yfgn 100 unit/mL (3 mL) subcutaneous pen 30 unit (0.3 mL) subcut DAILY #0 mL 01/11/25 magnesium citrate 300 ml PO DAILY PRN Constipation #0 mL 01/11/25 menthol 0.44 %-zinc oxide 20.6 % topical ointment (Calmoseptine) 1 applic topical BID #0 grams 01/11/25 nystatin 100,000 unit/gram topical powder 1 applic topical BID #0 grams 01/11/25 sennosides 8.6 mg-docusate sodium 50 mg tablet (Stimulant Laxative Plus) 2 tab PO BID #0 tabs 01/11/25 Hospital Course Operations - (See below.) Procedures None Summary of Care Provided Minutes Spent on Discharge: 35 Hospital Course: 84 year old female with below past medical history hospitalized open right ankle fracture, underwent right ankle irrigation, debridement with ORIF 12/19/[address] Ferrer, admitted to TCU with debility, here for rehabilitation, strengthening, prior to discharge home alone with hospice. Plan: DC 01/12 to [facility], intermediate, part B therapies. Physical Exam Const alert General Appearance: cooperative HEENT normocephalic Eyes PERRL and EOMs intact bilaterally Neck supple, no JVD and no carotid bruits Resp normal respiratory effort, normal air movement and clear to auscultation bilaterally Cardio regular rate and regular rhythm GI normal to inspection, nondistended, normoactive bowel sounds, non-tender and non-distended Extremity normal capillary refill Extremity Narrative: Right lower extremity splint, dressed. General Extremity: Negative for edema Skin no rashes or lesions noted General Skin Exam: no breakdown Psych affect normal Appearance: appropriate Weight / BMI Weight Weight: 104.78 kg Body Mass Index (BMI) 34.9 ABG / Lab / Microbiology Data 01/08/25 06:03 01/08/25 06:03 Laboratory: Laboratory Results - last 24 hr 01/10/25 21:51: POC Glucose 121 H 01/11/25 05:47: POC Glucose 104 Microbiology: Microbiology 01/06/25 19:43 Urine Catheter - Catheter Urine Culture - Final Enterococcus faecalis Aerococcus sanguinicola 01/04/25 05:40 Nasal Secretion SARS-CoV-2 Antigen (Rapid) - Final 12/28/24 06:24 Nasal Secretion SARS-CoV-2 Antigen (Rapid) - Final 12/25/24 21:40 Stool Stool Occult Blood (JAMILA) - Final Occult Blood Positive D/C Instructions Discharge Activity: Return to Normal Activity, May Shower and Use Walker Weight Bearing Status: No weight bearing (Right lower extremity.) Call your doctor if you observe: Fever of 101 or Higher, Inability to urinate, Inability to have a bowel movement, Shortness of breath, Dizziness, Fainting spells, Swelling in the ankles, Chest pain and Uncontrolled pain DC O2, CPAP, BIPAP Needs Home O2 Discharge instructions: No Additional Instructions: Plan: DC 01/12 to [facility], intermediate, part B therapies. Please Follow Up With: Dr. José Ferrer When: As scheduled. Meaningful Use Info Meaningful Use Meaningful Use Diagnoses (Choose all that apply): None applicable Discharge Plan Admission Admit Date/Time: 12/24/24 16:40 Primary Reason for Your Visit: Debility. Attending Provider: Alexy Douglas Chi Primary Care Provider: Alexy Douglas Chi Consulting Providers: Raul Busby; Friend,Felipe; Corrina Oneill; Viry Gaytan; Fatmata Mas Instructions Additional Instructions / Restrictions: Plan: DC 01/12 to [facility], intermediate, part B therapies. Discharge Orders/Prescriptions Prescriptions: New furosemide 40 mg Tablet 40 mg PO BIDLX Qty: 0 0RF sennosides-docusate sodium [Stimulant Laxative Plus] 8.6-50 mg Tablet 2 tab PO BID Qty: 0 0RF acetaminophen 500 mg Tablet 1,000 mg PO Q8 Qty: 0 0RF magnesium citrate Solution 300 ml PO DAILY PRN (Reason: Constipation) Qty: 0 0RF nystatin 100,000 unit/gram Powder 1 applic topical BID Qty: 0 0RF Protocol: *Topical Application Instructions APPLICATION INSTRUCTIONS: apply topically to abdominal folds and under breasts for redness menthol-zinc oxide [Calmoseptine] 0.44-20.6 % Ointment 1 applic topical BID Qty: 0 0RF Protocol: *Topical Application Instructions APPLICATION INSTRUCTIONS: coccyx Jardiance 10 mg Tablet 10 mg PO DAILY Qty: 0 0RF insulin glargine-yfgn 100 unit/mL (3 mL) Insulin Pen 30 unit subcut DAILY Qty: 0 0RF Continued levothyroxine 200 mcg tablet 200 mcg PO DAILY Rx Instructions: Take with 50 mcg tab to = 250 mcg daily potassium chloride 20 mEq tablet,ER particles/crystals 20 meq PO DAILY metoprolol tartrate 100 mg tablet 100 mg PO BID Eliquis 2.5 mg tablet 2.5 mg PO BID polyethylene glycol 3350 [Miralax] 17 gram/dose powder 17 g PO DAILY albuterol sulfate 90 mcg/actuation HFA aerosol inhaler 2 puff INHALATION Q4H PRN PRN (Reason: dyspnea) atorvastatin [Lipitor] 40 mg tablet 40 mg PO DAILY doxepin 10 mg capsule 10 mg PO QHS glimepiride 1 mg tablet 1 mg PO DAILY polysaccharide iron complex 150 mg iron capsule 150 mg PO DAILY sacubitril-valsartan 24-26 mg tablet 1 tab PO BID diltiazem HCl 240 mg capsule,extended release 24hr 240 mg PO DAILY Qty: 90 3RF Discontinued sacubitril-valsartan [Entresto] 49-51 mg tablet 1 tab PO BID Gemtesa 75 mg tablet 75 mg PO DAILY levothyroxine 50 mcg tablet 50 mcg PO DAILY Rx Instructions: Take with 200 mcg tab to = 250 mcg daily rosuvastatin 40 mg tablet 20 mg PO QHS insulin glargine-yfgn 100 unit/mL (3 mL) Insulin Pen 25 unit subcut BID 30 Days Qty: 15 0RF insulin lispro [Humalog KwikPen Insulin] 100 unit/mL Insulin Pen 5 unit subcut TIDAC 30 Days Qty: 4.5 0RF spironolactone 25 mg tablet 25 mg PO DAILY sennosides-docusate sodium [Stimulant Laxative Plus] 8.6-50 mg Tablet 2 tab PO BID PRN PRN (Reason: Constipation) Qty: 0 0RF oxycodone-acetaminophen 5-325 mg tablet 1 tab PO Q4H PRN (Reason: pain 4-10) Rx Instructions: for 3 days tramadol 50 mg tablet 50 mg PO Q6H oxycodone 5 mg capsule 5 mg PO Q4H bisacodyl 5 mg tablet 5 mg PO DAILY PRN (Reason: constipation) ferrous sulfate [Ramírez-Time] 325 mg (65 mg iron) tablet 325 mg PO DAILY insulin degludec [Tresiba FlexTouch U-100] 100 unit/mL (3 mL) insulin pen 40 unit subcut DAILY furosemide 40 mg Tablet 40 mg PO BID acetaminophen 500 mg Tablet 1,000 mg PO Q8H No Action pantoprazole [Protonix] 40 mg tablet,delayed release (DR/EC) 40 mg PO DAILY Qty: 1 0RF (DME) OXYGEN - Supplemental ([facility] INFORMATIONAL USE ONLY) 0 .ROUTE .MEDSUPPLY Patient Comments: patient wears 4liters at home DME: Hospice Referrals / Follow Up: Alexy Douglas Chi, MD [Primary Care Provider, Geriatrics] JOSÉ FERRER DO [Non-Staff, Orthopedics] Referral Note: f/u 4 weeks from 01/07/25 for repeat xrays RT ankle Disposition Disposition (needs filled in before D/C Order can be placed): NonSkilled NH/Intermed Care
[2025-01-11] MEDS: Insulin Glargine-YFGN 100 UNIT/ML Pen 30 UNIT SC (07:47)
[2025-01-11 07:48] VITALS: PULSE 77
[2025-01-11] MEDS: Potassium Chloride Oral Tablet 20 MEQ PO (07:51)
[2025-01-11] MEDS: Senna/Docusate Sodium 1 Tablet 2 TABLET PO ×2 (07:51→21:31)
--- NOTE | 2025-01-11 07:53 | TREXTCAR_ITS ---
Diet Diet Order/Speech Therapy: INPATIENT Hospital Diet / Speech Therapy Order(s) 12/25/24 13:43 Diet: Cardiac - Heart Healthy Food consistency:: Regular Liquid Consistency:: Regular/Thin Dietary Modifications:: Consistent Carbohydrate Type of Dietary Supplement:: Wilner Diet Comments: Wilner w/ breakfast and dinner Routine Orders/Code Status Code Status: DNRCC-A (No intubation.) DC O2, CPAP, BIPAP needs Home O2 Discharge instructions: No Wound(s) Coccyx: Wound Type: Pressure Injury Dressing Change: Calmoseptine Bilateral knee: Wound Type: Abrasion RLE: Wound Type: Surgical Incision Dressing Change: Adaptic Therapies Weight Bearing: Non weight bearing Extremity Affected:: Right Lower Physical Therapy: Eval and Treat Occupational Therapy: Eval and Treat Problem/Diagnosis (1) Acute postoperative anemia due to expected blood loss: Status: Acute Code(s): D62 - Acute posthemorrhagic anemia Plan 84 year old female with below past medical history hospitalized open right ankle fracture, underwent right ankle irrigation, debridement with ORIF 12/19/[address] Ferrer, admitted to TCU with debility, here for rehabilitation, strengthening, prior to discharge home alone with hospice. * Debility - PT/OT. * Pain - Tylenol 1000mg q8, Tramadol 50mg q6 prn pain (1-5), Oxycodone 5mg q4 prn pain (6-10). * Bowel - Miralax 17gm daily, senna/colace 2 tablets bid, Magnesium citrate 300mL daily prn. * Adult immunization - Administer pneumonia vaccine, covid vaccine, flu vaccine as appropriate. * DVT prophylaxis - Eliquis. * COPD - Albuterol 2 puffs q4 prn. * Atrial fibrillation - Metoprolol 100mg bid, Diltiazem 240mg daily, Eliquis 2.5mg bid. * Hyperlipidemia - Atorvastatin 40mg qhs. * Chronic HFpEF - Metoprolol 100mg bid, Entresto 24/26mg bid, Furosemide 40mg bid. * Diabetes Mellitus II - Glimepiride 1mg daily, Glargine 40 units daily. * Iron deficiency anemia - Ferrex 150mg daily. * Hypothyroidism - Levothyroxine 200mcg daily. * Hypokalemia - KCL 20meq daily. Allergies/Procedures Done in Hospital Allergies Sulfa (Sulfonamide Antibiotics) Allergy (Verified 06/26/24 14:01) PEELING RASH Procedures: None Type of Care/Length of Stay Estimated LOS: More Than 30 Days Type of Care Needed: Intermediate Rehab Potential: Fair Prognosis: Fair Additional Orders/Day of Discharge Additional Orders: part B therapies Day of Discharge: 01/12/25 Dietary and Speech Recommendations Dietitian Recommendations/Changes: Continue cardiac; consistent carbohydrate diet. Will continue Wilner bid w/ breakfast and dinner to help w/ wound healing if consumed. Will monitor weight trends. Follow Up Care Please Follow Up With: Dr. José Ferrer When: 1 week Discharge Plan Admission Admit Date/Time: 12/24/24 16:40 Primary Reason for Your Visit: Debility. Attending Provider: Alexy Douglas Chi Primary Care Provider: Alexy Douglas Chi Consulting Providers: Raul Busby; Felipe Ruby; Corrina Oneill; Viry Gaytan; Fatmata Mas Instructions Additional Instructions / Restrictions: Plan: DC 01/12 to [facility], intermediate, part B therapies. Discharge Orders/Prescriptions Prescriptions: New furosemide 40 mg Tablet 40 mg PO BIDLX Qty: 0 0RF sennosides-docusate sodium [Stimulant Laxative Plus] 8.6-50 mg Tablet 2 tab PO BID Qty: 0 0RF acetaminophen 500 mg Tablet 1,000 mg PO Q8 Qty: 0 0RF magnesium citrate Solution 300 ml PO DAILY PRN (Reason: Constipation) Qty: 0 0RF nystatin 100,000 unit/gram Powder 1 applic topical BID Qty: 0 0RF Protocol: *Topical Application Instructions APPLICATION INSTRUCTIONS: apply topically to abdominal folds and under breasts for redness menthol-zinc oxide [Calmoseptine] 0.44-20.6 % Ointment 1 applic topical BID Qty: 0 0RF Protocol: *Topical Application Instructions APPLICATION INSTRUCTIONS: coccyx Jardiance 10 mg Tablet 10 mg PO DAILY Qty: 0 0RF insulin glargine-yfgn 100 unit/mL (3 mL) Insulin Pen 30 unit subcut DAILY Qty: 0 0RF Continued levothyroxine 200 mcg tablet 200 mcg PO DAILY Rx Instructions: Take with 50 mcg tab to = 250 mcg daily potassium chloride 20 mEq tablet,ER particles/crystals 20 meq PO DAILY metoprolol tartrate 100 mg tablet 100 mg PO BID Eliquis 2.5 mg tablet 2.5 mg PO BID polyethylene glycol 3350 [Miralax] 17 gram/dose powder 17 g PO DAILY albuterol sulfate 90 mcg/actuation HFA aerosol inhaler 2 puff INHALATION Q4H PRN PRN (Reason: dyspnea) atorvastatin [Lipitor] 40 mg tablet 40 mg PO DAILY doxepin 10 mg capsule 10 mg PO QHS glimepiride 1 mg tablet 1 mg PO DAILY polysaccharide iron complex 150 mg iron capsule 150 mg PO DAILY sacubitril-valsartan 24-26 mg tablet 1 tab PO BID diltiazem HCl 240 mg capsule,extended release 24hr 240 mg PO DAILY Qty: 90 3RF Discontinued sacubitril-valsartan [Entresto] 49-51 mg tablet 1 tab PO BID Gemtesa 75 mg tablet 75 mg PO DAILY levothyroxine 50 mcg tablet 50 mcg PO DAILY Rx Instructions: Take with 200 mcg tab to = 250 mcg daily rosuvastatin 40 mg tablet 20 mg PO QHS insulin glargine-yfgn 100 unit/mL (3 mL) Insulin Pen 25 unit subcut BID 30 Days Qty: 15 0RF insulin lispro [Humalog KwikPen Insulin] 100 unit/mL Insulin Pen 5 unit subcut TIDAC 30 Days Qty: 4.5 0RF spironolactone 25 mg tablet 25 mg PO DAILY sennosides-docusate sodium [Stimulant Laxative Plus] 8.6-50 mg Tablet 2 tab PO BID PRN PRN (Reason: Constipation) Qty: 0 0RF oxycodone-acetaminophen 5-325 mg tablet 1 tab PO Q4H PRN (Reason: pain 4-10) Rx Instructions: for 3 days tramadol 50 mg tablet 50 mg PO Q6H oxycodone 5 mg capsule 5 mg PO Q4H bisacodyl 5 mg tablet 5 mg PO DAILY PRN (Reason: constipation) ferrous sulfate [Ramírez-Time] 325 mg (65 mg iron) tablet 325 mg PO DAILY insulin degludec [Tresiba FlexTouch U-100] 100 unit/mL (3 mL) insulin pen 40 unit subcut DAILY furosemide 40 mg Tablet 40 mg PO BID acetaminophen 500 mg Tablet 1,000 mg PO Q8H No Action pantoprazole [Protonix] 40 mg tablet,delayed release (DR/EC) 40 mg PO DAILY Qty: 1 0RF (DME) OXYGEN - Supplemental ([facility] INFORMATIONAL USE ONLY) 0 .ROUTE .MEDSUPPLY Patient Comments: patient wears 4liters at home DME: Hospice Referrals / Follow Up: Alexy Douglas Chi, MD [Primary Care Provider, Geriatrics] JOSÉ FERRER DO [Non-Staff, Orthopedics] Referral Note: f/u 4 weeks from 01/07/25 for repeat xrays RT ankle Disposition Disposition (needs filled in before D/C Order can be placed): NonSkilled NH/Intermed Care
--- NOTE | 2025-01-11 07:57 | NURSING ---
pt off unit to xray for pain rt arm. states "had for month"
--- NOTE | 2025-01-11 08:00 | RAD_ITS ---
PROCEDURE: SHOULDER MIN 2 VIEWS 01/11/2025 REASON FOR EXAM: PAIN Recent fall. TECHNIQUE: Procedure Code: RADSH Modality: DX Procedure: SHOULDER MIN 2 VIEWS Laterality: Left shoulder COMPARISON: None FINDINGS: Bones: No fracture seen. Joints: Normal alignment. Mild degenerative changes. Soft tissues: Soft tissues are unremarkable. Other: RAD/Shoulder min 2 Views IMPRESSION: NO ACUTE FRACTURE OR DISLOCATION. Reading Location: [facility]
--- NOTE | 2025-01-11 08:00 | RAD_ITS ---
PROCEDURE: ELBOW MIN 3 VIEWS 01/11/2025 REASON FOR EXAM: PAIN TECHNIQUE: Procedure Code: RADEL Modality: DX Procedure: ELBOW MIN 3 VIEWS Laterality: COMPARISON: None FINDINGS: Three views of the left elbow. There is no fracture or dislocation. There is no visible effusion. There is no soft tissue abnormality or radiopaque foreign body. Mineralization is normal. RAD/Elbow min 3 Views IMPRESSION: No fracture or dislocation is identified. Reading Location: [facility]
--- NOTE | 2025-01-11 08:00 | RAD_ITS ---
PROCEDURE: HUMERUS MIN 2 VIEWS 01/11/2025 REASON FOR EXAM: PAIN Recent fall. TECHNIQUE: Procedure Code: RADHUM Modality: DX Procedure: HUMERUS MIN 2 VIEWS Laterality: Left humerus COMPARISON: None FINDINGS: Bones: No fracture seen. Joints: Normal alignment at the shoulder and elbow. Soft tissues: Soft tissues are unremarkable. Other: RAD/Humerus min 2 Views IMPRESSION: NO ACUTE FRACTURE OR DISLOCATION. Reading Location: [id number]
[2025-01-11 13:59] VITALS: PULSE 87; RESP 18
[2025-01-11 21:21] VITALS: BP 126/63; PULSE 79; O2SAT 97
[2025-01-11 21:27] VITALS: BP 126/63; PULSE 79
[2025-01-11] MEDS: Doxepin Hydrochloride 10 MG Capsule PO (21:27)
[2025-01-12 02:57] VITALS: PULSE 80
[2025-01-12 05:18] VITALS: BP 112/58; PULSE 81; O2SAT 95
[2025-01-12 07:58] VITALS: BP 114/55; PULSE 67; RESP 18; TEMP 36.7; O2SAT 98
[2025-01-12 08:00] VITALS: BMI 35.4
[2025-01-12 08:02] VITALS: PULSE 67
[2025-01-12] MEDS: Insulin Glargine-YFGN 100 UNIT/ML Pen 30 UNIT SC (08:02)
[2025-01-12] MEDS: Potassium Chloride Oral Tablet 20 MEQ PO (08:03)
[2025-01-12] MEDS: APIXABAN 2.5 MG TABLET (WCH) PO (08:03)
[2025-01-12] MEDS: SACUBITRIL/VALSARTAN 24/26 MG TABLET 1 EACH PO (08:03)
[2025-01-12] MEDS: Senna/Docusate Sodium 1 Tablet 2 TABLET PO (08:08)
--- NOTE | 2025-01-12 11:21 | NURSING ---
This nurse called report to Tricia BYNUM at [facility]. Pt. left unit via cot accompanied by ambulance staff.
== END 2025-01-12 11:23 | disposition intermediate care facility (04) | DRG 560 ==
PROVIDERS: Admitting Provider Family Medicine Geriatric Medicine; PCP Family Medicine Geriatric Medicine; Visit Provider Family Medicine Geriatric Medicine
DX: S82.891F Other fracture of right lower leg, subsequent encounter for open fracture type IIIA, IIIB, or IIIC with routine healing (principal); I50.32 Chronic diastolic (congestive) heart failure; J96.12 Chronic respiratory failure with hypercapnia; D62 Acute posthemorrhagic anemia; I13.0 Hypertensive heart and chronic kidney disease with heart failure and stage 1 through stage 4 chronic kidney disease, or unspecified chronic kidney disease; I48.11 Longstanding persistent atrial fibrillation; J96.11 Chronic respiratory failure with hypoxia; N39.0 Urinary tract infection, site not specified; I27.21 Secondary pulmonary arterial hypertension; E11.22 Type 2 diabetes mellitus with diabetic chronic kidney disease; E03.9 Hypothyroidism, unspecified; D50.9 Iron deficiency anemia, unspecified; E11.65 Type 2 diabetes mellitus with hyperglycemia; N18.32 Chronic kidney disease, stage 3b; J44.89 Other specified chronic obstructive pulmonary disease; E87.6 Hypokalemia; E78.00 Pure hypercholesterolemia, unspecified; K21.9 Gastro-esophageal reflux disease without esophagitis; Z79.4 Long term (current) use of insulin; W19.XXXD Unspecified fall, subsequent encounter; Z99.81 Dependence on supplemental oxygen; Z87.891 Personal history of nicotine dependence; Z79.899 Other long term (current) drug therapy; N32.81 Overactive bladder; Z79.890 Hormone replacement therapy; Z79.84 Long term (current) use of oral hypoglycemic drugs; G47.00 Insomnia, unspecified
CPT/HCPCS: 36415; 73030; 73060; 73080; 80048; 80053; 81001; 82274; 82962; 83036; 83540; 83550; 83735; 85014; 85018; 85025; 87077; 87086; 87088; 87186; 87811; 92507; 92523; 97110; 97162; 97166; 97530; 97535; 97802